=== PATIENT | male | born 1940 | race Hispanic/Latino ===

== ENCOUNTER 2017-03-28 11:00 | Inpatient (IN) | payer MEDICARE ==
[2017-03-28 19:58] VITALS: PULSE 88
[2017-03-28 23:04] VITALS: BMI 31.3
[2017-03-29 01:23] LABS: PARTIAL THROMBOPLASTIN TIME 50.9 SECONDS (23.3-32.5)
[2017-03-29] MEDS ORDERED: Phytonadione 10 mg/ml Inj (Adult) ONE (01:52)
[2017-03-29] MEDS ORDERED: Phytonadione 10 mg/ml Inj (Adult) SC ONE ×2 (01:53→08:58)
[2017-03-29 06:29] LABS: HEMATOCRIT 40.8 % (35.0-51.0); MEAN CELL VOLUME 92.3 fl (80.0-94.0); MEAN CORPUSCULAR HGB CONC 33.6 g/dL (33.0-37.0); RED CELL DISTRIBUTION WIDTH 16.2 % (11.5-14.5); WHITE BLOOD COUNT 9.7 K/uL (4.8-10.8)
[2017-03-29 06:44] LABS: ALB/GLOB RATIO 1.2 (1.0-2.1); BILIRUBIN,TOTAL 1.2 mg/dl (0.2-1.3); CALCIUM 9.3 mg/dL (8.4-10.2); POTASSIUM 5.1 MMOL/L (3.6-5.0); TOTAL PROTEIN 6.6 G/DL (6.3-8.2)
[2017-03-29 06:47] LABS: PARTIAL THROMBOPLASTIN TIME 47.6 SECONDS (23.3-32.5)
[2017-03-29] MEDS ORDERED: Valproate 500 MG in Sodium Chloride 0.9% 100 ML IVPB ONE (06:56)
[2017-03-29 07:00] LABS: T4 7.69 ug/dl (5.5-11.0)
[2017-03-29 07:14] LABS: THYROID STIMULATING HORMONE 6.56 mIU/ML (0.46-4.68)
[2017-03-29] MEDS ORDERED: Digoxin 125 mcg (0.125 mg) Tab PO SCH (09:00)
--- NOTE | 2017-03-29 09:21 | RAD ---
HISTORY: Not available COMPARISON: No prior. FINDINGS: LUNGS: No definite infiltrate. PLEURA: Moderate bilateral pleural effusion. CARDIOVASCULAR: Normal heart size. Mild congestive change. OSSEOUS STRUCTURES: No significant abnormalities. VISUALIZED UPPER ABDOMEN: Normal. OTHER FINDINGS: None. IMPRESSION: Bilateral moderate pleural effusion. Mild congestive change.
--- NOTE | 2017-03-29 09:35 | CT ---
PROCEDURE: CT HEAD WITHOUT CONTRAST. HISTORY: ICH? abn blood work up and change in mental status COMPARISON: Comparison CT scan brain 11/29/2016. TECHNIQUE: Axial computed tomography images were obtained through the head/brain without intravenous. Study is limited by motion artifact. Contrast. Radiation dose: Total exam DLP = 1060.54 MGy-cm. This CT exam was performed using one or more of the following dose reduction techniques: Automated exposure control, adjustment of the mA and/or kV according to patient size, and/or use of iterative reconstruction technique. FINDINGS: HEMORRHAGE: No acute parenchymal, subarachnoid nor extra-axial hemorrhage. BRAIN: Mild to moderate chronic periventricular white matter ischemic changes. Chronic infarct in the right frontal operculum region extending superiorly into the centrum semiovale. In addition, there may also be a few scattered chronic bilateral basal nuclei lacunar type infarcts Moderate generalized volume loss. VENTRICLES: Ventricles are dilated due to atrophy however no evidence of obstructive hydrocephalus. CALVARIUM: Calvarium appears grossly intact PARANASAL SINUSES: Unremarkable as visualized. No significant inflammatory changes. MASTOID AIR CELLS: Unremarkable as visualized. No inflammatory changes. OTHER FINDINGS: None. IMPRESSION: Limited motion degraded study. No acute intracranial hemorrhage. Mild to moderate chronic white matter ischemic changes. Chronic right frontal lobe infarct as above. In addition, there may also be a few scattered chronic bilateral basal nuclei lacunar type infarcts
--- NOTE | 2017-03-29 10:12 | CT ---
CT head without IV contrast History: Bilateral leg swelling, shortness of breath, confusion Technique: Axial computed tomography images were obtained through the head/brain without intravenous contrast. This CT exam was performed using 1 or more of the falling dose reduction techniques: Automated exposure control, adjustment of the MAA and/or kV according to patient size, and/or use of iterative reconstruction technique. Radiation dose: Total exam DLP = 1585.45 MGy-cm. Comparison: None available. Findings: Prominent hypodense region within the right frontal lobe likely related to remote ischemia. Acute or subacute component cannot be excluded. Please note that MRI with diffusion imaging is more sensitive in the detection of acute ischemic event. Additional scattered periventricular and subcortical white matter hypodensities, which are nonspecific, but often seen with chronic microvascular ischemic disease. No hydrocephalus. Diffuse atrophy with prominence of the ventricles and sulci noted. No intracranial masses or hemorrhages are identified. No mass effect or midline shift. Visualized paranasal sinuses, mastoid air cells, and both orbits appear unremarkable. Impression: Prominent hypodense region within the right frontal lobe likely related to remote ischemia. Acute or subacute component cannot be excluded. Please note that MRI with diffusion imaging is more sensitive in the detection of acute ischemic event. Additional scattered white matter hypodensities, which are nonspecific, but often seen with chronic microvascular ischemic disease.
--- NOTE | 2017-03-29 10:38 | CP.PCM.CON ---
History of Present Illness - History of Present Illness History of Present Illness: Full Note Dictated Altered Mental Status (? Keppra side effect, ? Hypercapnoea) Chr A Fib with CHF (LV , Diastolic, Chr) Hypoventilation syndr Coumadin Toxicity ( INR >8) ABGs Now Telemetry shows periods of bradycardia (mid 40s) Pt on Cardizem+ Dig + Metoprolol (Have witheld Dig) Vit K has been given (no active bleeding) Past Patient History - Infectious Disease Hx of Infectious Diseases: None - Past Medical History & Family History Past Medical History?: Yes - Past Social History Smoking Status: Never Smoked - CARDIAC Hx Cardiac Disorders: Yes - PULMONARY Hx Sleep Apnea: Yes - NEUROLOGICAL Hx Neurological Disorder: Yes HX Cerebrovascular Accident: Yes - HEENT Hx HEENT Problems: No - RENAL Hx Chronic Kidney Disease: No - ENDOCRINE/METABOLIC Hx Endocrine Disorders: No - HEMATOLOGICAL/ONCOLOGICAL Hx Human Immunodeficiency Virus (HIV): No - INTEGUMENTARY Hx Dermatological Problems: No - MUSCULOSKELETAL/RHEUMATOLOGICAL Hx Musculoskeletal Disorders: No Hx Falls: Yes - GASTROINTESTINAL Hx Gastrointestinal Disorders: No - GENITOURINARY/GYNECOLOGICAL Hx Genitourinary Disorders: Yes Other/Comment: BPH - PSYCHIATRIC Hx Psychophysiologic Disorder: No Hx Substance Use: No - SURGICAL HISTORY Hx Surgeries: No - ANESTHESIA Hx Anesthesia: No Hx Anesthesia Reactions: No Hx Malignant Hyperthermia: No Meds Allergies/Adverse Reactions: Allergies Allergy/AdvReac Type Severity Reaction Status Date / Time No Known Allergies Allergy Verified 02/27/16 09:59 - Medications Medications: Current Medications Diltiazem HCl (Cardizem Cd) 120 mg PO DAILY [facility] Enalapril Maleate (Vasotec) 10 mg PO DAILY [facility] Furosemide (Lasix) 40 mg IV DAILY [facility] Home Med (Dutasteride [Avodart]) 0.5 mg PO DAILY [facility] Metoprolol Succinate (Toprol Xl) 25 mg PO DAILY [facility] Results - Vital Signs Recent Vital Signs: Last Vital Signs Temp 98.2 F 03/29/17 08:19 Pulse 64 03/29/17 08:19 Resp 20 03/29/17 08:19 BP 113/70 03/29/17 08:19 Pulse Ox 93 L 03/29/17 08:19 - Labs Result Diagrams: 03/29/17 05:15 03/29/17 05:15 Labs: Laboratory Results - last 24 hr 03/29/17 03/29/1717 00:05 05:15 05:15 WBC 9.7 RBC 4.42 Hgb 13.7 Hct 40.8 MCV 92.3 MCH 31.0 MCHC 33.6 RDW 16.2 H Plt Count 147 PT 130.0 H* 130.0 H* INR > 8.00 H > 8.00 H APTT 50.9 H 47.6 H Sodium Potassium Chloride Carbon Dioxide Anion Gap BUN Creatinine Est GFR ( Amer) Est GFR (Non-Af Amer) Random Glucose Calcium Total Bilirubin AST ALT Alkaline Phosphatase Total Protein Albumin Globulin Albumin/Globulin Ratio Triglycerides Cholesterol LDL Cholesterol Direct HDL Cholesterol Thyroxine (T4) TSH 3rd Generation Digoxin 03/29/17 03/29/17 05:15 05:15 WBC RBC Hgb Hct MCV MCH MCHC RDW Plt Count PT INR APTT Sodium 139 Potassium 5.1 H Chloride 99 Carbon Dioxide 29 Anion Gap 16 BUN 44 H Creatinine 1.8 H Est GFR ( Amer) 44 Est GFR (Non-Af Amer) 37 Random Glucose 72 L Calcium 9.3 Total Bilirubin 1.2 AST 33 ALT 32 Alkaline Phosphatase 145 H D Total Protein 6.6 Albumin 3.5 Globulin 3.0 Albumin/Globulin Ratio 1.2 Triglycerides 48 Cholesterol 116 LDL Cholesterol Direct 41 HDL Cholesterol 53 Thyroxine (T4) 7.69 TSH 3rd Generation 6.56 H Digoxin 1.8
[2017-03-29 10:47] LABS: ABG ALLEN TEST YES; ABG MECHANICAL RATE 12; ARTERIAL BLOOD GAS HCO3 27.6 mmol/L (21-28); ARTERIAL BLOOD GAS MODE BiPAP; ARTERIAL BLOOD GAS O2 CAPACITY 18.7 mL/dL (16-24); ARTERIAL BLOOD GAS O2 CONTENT 18.4 ML/dL (15-23); ARTERIAL BLOOD GAS PH 7.42 (7.35-7.45); ARTERIAL BLOOD GAS PO2 141 mm/Hg (80-100); ARTERIAL BLOOD HGB O2 SAT 96.2 % (95.0-98.0); CARBOXYHEMOGLOBIN 0.9 % (0.5-1.5); HHB 1.8 % (0.0-5.0); METHEMOGLOBIN 1.1 % (0.0-3.0)
[2017-03-29] MEDS: diltiaZEM 120 mg/24 Hours CD Cap PO SCH (11:42)
[2017-03-29] MEDS: Metoprolol Succinate 25 mg XL Tab PO SCH (11:43)
--- NOTE | 2017-03-29 11:52 | CON ---
DATE: 03/29/2017 He is hospitalized under Dr. Escamilla's care. HISTORY OF PRESENT ILLNESS: This 76-year-old man has had 3 hospitalizations within the last 3 months. He was recently started on Keppra and the reports gradually worsening level of consciousness to the point that when she brought him to the hospital, he was hallucinating. She is convinced that this represents Keppra-related side effect. Recently the dose of Keppra was reduced without any improvement in his level of consciousness. The patient is being treated for congestive heart failure for a number of years with diuretics and medications to control his heart rate, which consists of a beta andrew as well as Cardizem and digoxin. The patient is also on Coumadin for a number of years. He has been seeing a parachute cushion installer at [facility] in [place]. He has never been a smoker and has no prior history of myocardial infarction. Recently with increasing weight and swelling of his legs, the diuretic dose was doubled to 40 mg of furosemide twice a day. The cannot say if he has lost any significant amount of weight. He uses a CPAP machine at home presumably for hypoventilation syndrome. PHYSICAL EXAMINATION: GENERAL: Shows an elderly man who is difficult to arouse at this point on a BiPAP machine with oxygen supplement. VITAL SIGNS: Telemetry shows atrial fibrillation with periods of bradycardia with a heart rate in mid 40s. His blood pressure was 128/74 mmHg. NECK: Jugular venous pressure could not be adequately assessed because of a short thick neck. EXTREMITIES: There was pedal edema, which is pitting in nature. HEART: The apex was not palpable. The first heart sound was normal. The second heart sound was also normal. There was no S3 gallop. LUNGS: Inspiratory effort was poor and very few rales were audible. ABDOMEN: Soft. Liver and spleen were not palpable. His electrocardiogram showed atrial fibrillation with a right bundle branch block and ST-T changes typical of right bundle branch block as well as probably digitalis effect. LABORATORY DATA: Showed a hemoglobin and hematocrit of 13.7 g and 40.8% respectively. His WBC count and platelet counts were normal. His INR at admission was greater than 8 and he was given doses of vitamin K. His Coumadin has been withheld. His arterial blood gases done now show a pCO2 of 44 and a pO2 of 141 mmHg. This was on a BiPAP machine with an FIO2 of 100%. His potassium level was 5.1 mEq per liter, BUN and creatinine were 44 and 1.8 mg percent. These values when compared to his earlier admissions show that in December his creatinine levels were in the range of 1.3-1.5 mg percent. His GFR which now is 37 mL per minute on earlier admission was as high as 53 mL per minute. His liver profile was normal. His TSH was 6.56 indicative of a hypothyroid state. Lipid profile was normal. IMPRESSION AND PLAN: At this time is altered mental status, possibly as a consequence of Keppra side effect. The possibility of hypercapnia was entertained until arterial blood gases were done, indicating a normal CO2 level , chronic congestive cardiac failure which is left ventricular diastolic and chronic. Review of his echocardiogram from December shows a preserved left ventricular systolic function with a mildly dilated left atrium. His digoxin has been withheld in an attempt to resolve bradycardic periods shown on his telemetry. He has already been seen by the neurologist who is in the process of addressing his altered mental status. Vitamin K has been given to resolve markedly elevated INR. Geovani V Lanie BENITEZ cc: 23 TT: 03/29/2017 11:45:21 Confirmation # [id number] Dictation # [id number] emily BLAIR
--- NOTE | 2017-03-29 14:19 | CP.PCM.HP ---
History of Present Illness - History of Present Illness History of Present Illness: CC: AMS. 76 y/o M, brought to ER [facility], [place] by EMS for evaluation of AMS, gradually increased, worsening on DOA with no relief. As per , she called EMS when noticed her having increased mental changes, associated to hallucination. worsening symptom: SOB, AFib with CHF, Hx of Sleep Apnea on BIPAP at home. Aggravated factor: Kepra related to episodes of altered consciousness. As per , Denied: Fever, chills, n/v/d, abdominal pain, CP, syncope, LOC, numbness, cough, urinary symptom, sick contact, recent travel. PMHx: A Fib with RVR on Coumadin, Old CVA without late effect, Chronic CHF, HTN , Sleep Apnea, BPH. EEG shows: Severe b/l cerebral dysfunction. CXR: B/L pleural effusion, mild congestive changes. EKG: A Fib with RBBB. . Present on Admission - Present on Admission Any Indicators Present on Admission: No Review of Systems - Constitutional Constitutional: Weakness - EENT Eyes: Requires Corrective Lenses Ears: Other (negative) Nose/Mouth/Throat: Other (negative) - Cardiovascular Cardiovascular: Irregular Heart Rhythm, Leg Edema - Respiratory Respiratory: Dyspnea - Gastrointestinal Gastrointestinal: Other (negative) - Genitourinary Genitourinary: Urinary Incontinence - Musculoskeletal Musculoskeletal: Other (negative) - Integumentary Integumentary: Other (negative) - Neurological Neurological: Behavioral Changes, Lack of Coordination, Weakness - Psychiatric Psychiatric: Hallucinations - Endocrine Endocrine: Other (negative) - Hematologic/Lymphatic Hematologic: Other (negative) Past Patient History - Infectious Disease Hx of Infectious Diseases: None - Past Medical History & Family History Past Medical History?: Yes Pertinent Family History: Unknown. - Past Social History Smoking Status: Never Smoked Alcohol: None Drugs: Denies Home Situation {Lives}: With Family - CARDIAC Hx Cardiac Disorders: Yes Hx Atrial Fibrillation: Yes Hx Congestive Heart Failure: Yes Hx Hypertension: Yes - PULMONARY Hx Respiratory Disorders: Yes Hx Sleep Apnea: Yes - NEUROLOGICAL Hx Neurological Disorder: Yes HX Cerebrovascular Accident: Yes - HEENT Hx HEENT Problems: No - RENAL Hx Chronic Kidney Disease: No - ENDOCRINE/METABOLIC Hx Endocrine Disorders: No - HEMATOLOGICAL/ONCOLOGICAL Hx Blood Disorders: No Hx Human Immunodeficiency Virus (HIV): No - INTEGUMENTARY Hx Dermatological Problems: No - MUSCULOSKELETAL/RHEUMATOLOGICAL Hx Musculoskeletal Disorders: Yes Hx Falls: Yes - GASTROINTESTINAL Hx Gastrointestinal Disorders: No - GENITOURINARY/GYNECOLOGICAL Hx Genitourinary Disorders: Yes Other/Comment: BPH - PSYCHIATRIC Hx Psychophysiologic Disorder: No Hx Substance Use: No - SURGICAL HISTORY Hx Surgeries: No - ANESTHESIA Hx Anesthesia: No Hx Anesthesia Reactions: No Hx Malignant Hyperthermia: No Meds Allergies/Adverse Reactions: Allergies Allergy/AdvReac Type Severity Reaction Status Date / Time No Known Allergies Allergy Verified 02/27/16 09:59 Physical Exam - Constitutional Appears: Chronically Ill - Head Exam Head Exam: NORMAL INSPECTION - Eye Exam Eye Exam: PERRL Pupil Exam: PERRL - ENT Exam ENT Exam: Normal Oropharynx - Neck Exam Neck exam: Positive for: Normal Inspection - Respiratory Exam Respiratory Exam: Decreased Breath Sounds (at bases), Rhonchi (scattered) Additional comments: Few crackles - Cardiovascular Exam Cardiovascular Exam: Irregular Rhythm - GI/Abdominal Exam GI & Abdominal Exam: Normal Bowel Sounds, Soft - Extremities Exam Additional comments: Legs edema. - Back Exam Additional comments: Redness sacral area. - Neurological Exam Additional comments: Lethargic, not arousable. - Psychiatric Exam Additional comments: Lethargic - Skin Skin Exam: Warm Results - Vital Signs Recent Vital Signs: Last Vital Signs Temp 97.6 F 03/29/17 12:47 Pulse 83 03/29/17 12:47 Resp 20 03/29/17 12:47 BP 145/72 03/29/17 12:47 Pulse Ox 94 L 03/29/17 12:47 reviewed J.PEmily - Labs Result Diagrams: 03/29/17 05:15 03/29/17 05:15 Labs: Laboratory Results - last 24 hr 03/29/17 03/29/17 03/29/17 00:05 05:15 05:15 WBC 9.7 RBC 4.42 Hgb 13.7 Hct 40.8 MCV 92.3 MCH 31.0 MCHC 33.6 RDW 16.2 H Plt Count 147 PT 130.0 H* 130.0 H* INR > 8.00 H > 8.00 H APTT 50.9 H 47.6 H pCO2 pO2 HCO3 ABG pH ABG Total CO2 ABG O2 Saturation ABG O2 Content ABG Base Excess ABG Hemoglobin ABG Carboxyhemoglobin POC ABG HHb (Measured) ABG Methemoglobin ABG O2 Capacity Broderick Test A-a O2 Difference Hgb O2 Saturation Vent Mode Mechanical Rate FiO2 Inspiratory BiPAP Expiratory BiPAP Sodium Potassium Chloride Carbon Dioxide Anion Gap BUN Creatinine Est GFR ( Amer) Est GFR (Non-Af Amer) Random Glucose Calcium Total Bilirubin AST ALT Alkaline Phosphatase Total Protein Albumin Globulin Albumin/Globulin Ratio Triglycerides Cholesterol LDL Cholesterol Direct HDL Cholesterol Thyroxine (T4) TSH 3rd Generation Digoxin 03/29/17 03/29/17 03/29/17 05:15 05:15 10:33 WBC RBC Hgb Hct MCV MCH MCHC RDW Plt Count PT INR APTT pCO2 44 pO2 141 H HCO3 27.6 ABG pH 7.42 ABG Total CO2 29.9 H ABG O2 Saturation 98.2 H ABG O2 Content 18.4 ABG Base Excess 3.4 H ABG Hemoglobin 13.4 ABG Carboxyhemoglobin 0.9 POC ABG HHb (Measured) 1.8 ABG Methemoglobin 1.1 ABG O2 Capacity 18.7 Broderick Test Yes A-a O2 Difference 517.0 Hgb O2 Saturation 96.2 Vent Mode Bipap Mechanical Rate 12 FiO2 100.0 Inspiratory BiPAP 10 Expiratory BiPAP 5 Sodium 139 Potassium 5.1 H Chloride 99 Carbon Dioxide 29 Anion Gap 16 BUN 44 H Creatinine 1.8 H Est GFR ( Amer) 44 Est GFR (Non-Af Amer) 37 Random Glucose 72 L Calcium 9.3 Total Bilirubin 1.2 AST 33 ALT 32 Alkaline Phosphatase 145 H Total Protein 6.6 Albumin 3.5 Globulin 3.0 Albumin/Globulin Ratio 1.2 Triglycerides 48 Cholesterol 116 LDL Cholesterol Direct 41 HDL Cholesterol 53 Thyroxine (T4) 7.69 TSH 3rd Generation 6.56 H Digoxin 1.8 reviewed J.P. - EKG Data EKG comments: reviewed J.P. - Impressions Impression: EGG = Reviewed J.P. - Imaging and Cardiology Chest x-ray Status: Report reviewed by me (JEmilyP.) CT scan - head Status: Report reviewed by me (JEmilyP.) Assessment & Plan (1) Altered mental status Status: Acute Priority: High (2) Acute on chronic diastolic CHF (congestive heart failure) Status: Acute Priority: High (3) A-fib Status: Chronic Priority: High (4) Generalized weakness Status: Acute Priority: High (5) Coumadin toxicity Status: Acute Priority: High (6) Sleep apnea Status: Chronic Priority: High (7) Seizure disorder Status: Chronic Priority: Medium (8) Old cerebrovascular accident (CVA) without late effect Status: Chronic - Assessment and Plan (Free Text) Plan: Telemetry with periods of bradycardia, Digoxin on hold, continue Metoprolol, Kepra DC, initial ABG mild Hypercapnia with decreased po2, DC BIPAP, trial of O2 NC, repeat ABG's in the evening, closed f/u. Cardiology consult appreciated - Date & Time Date: 03/29/17 Time: 10:40
[2017-03-29 15:40] LABS: ABG ALLEN TEST YES; ARTERIAL BLOOD GAS HCO3 27.2 mmol/L (21-28); ARTERIAL BLOOD GAS O2 CAPACITY 19.7 mL/dL (16-24); ARTERIAL BLOOD GAS O2 CONTENT 18.9 ML/dL (15-23); ARTERIAL BLOOD GAS PH 7.33 (7.35-7.45); ARTERIAL BLOOD GAS PO2 81 mm/Hg (80-100); ARTERIAL BLOOD HGB O2 SAT 93.8 % (95.0-98.0); CARBOXYHEMOGLOBIN 1.3 % (0.5-1.5); HHB 3.9 % (0.0-5.0)
--- NOTE | 2017-03-29 20:28 | EEG ---
DATE: 03/29/2017 CONDITION OF RECORDING: Drowsy. DIAGNOSIS: Altered mental status. MEDICATIONS: Reviewed via nurse's reconciliation sheet. INTERPRETATION: This is a 16-channel international recording. The background was composed of 5-6 cy cles per second. There was limited amount of beta activity 16-20 cycles per second seen in this trac ing. There was an increased amount of theta activity 5-7 cycles per second seen in this tracing. Dr cecelia was characterized by mixed beta and theta activities. Sleep was characterized by vertex tra nsient waves, sleep spindles and bilateral slowing. Photic stimulation showed no change in the elier ng. No paroxysmal activity noted during this recording. CONCLUSION: Abnormal electroencephalogram due to presence of diffuse slowing throughout the EEG cons istent with severe bilateral cerebral dysfunction. No evidence of any epileptiform activity. Rad Anderson MD cc: [id number] TT: 03/29/2017 20:27:19 Confirmation # [id number] Dictation # [id number] mn
--- NOTE | 2017-03-29 23:01 | CARD ---
APPROVED REPORT EKG Measurement Heart [id number] <Conclusion> Atrial fibrillation Left axis deviation Right bundle branch block T wave abnormality, consider inferolateral ischemia Abnormal ECG
--- NOTE | 2017-03-29 23:03 | CARD ---
APPROVED REPORT EKG Measurement Heart [id number] <Conclusion> Atrial fibrillation Left axis deviation Right bundle branch block T wave abnormality, consider inferolateral ischemia Abnormal ECG
[2017-03-30] MEDS: diltiaZEM 120 mg/24 Hours CD Cap PO SCH (13:30)
[2017-03-30] MEDS: Metoprolol Succinate 25 mg XL Tab PO SCH (13:31)
--- NOTE | 2017-03-30 15:05 | CP.PCM.PN ---
Subjective - Date & Time of Evaluation Date of Evaluation: 03/30/17 Time of Evaluation: 13:20 - Subjective Subjective: F/U AMS/ A Fib. Pt awake, smiling, no A/D, eating with the 's help. Objective - Vital Signs/Intake and Output Vital Signs (last 24 hours): Temp Pulse Resp BP Pulse Ox 97.5 F L 72 18 149/95 H 93 L 03/30/17 12:44 03/30/17 13:31 03/30/17 12:44 03/30/17 13:31 03/30/17 12:44 Intake and Output: 03/30/17 03/30/17 06:59 18:59 Intake Total 600 Balance 600 - Medications Medications: Current Medications Diltiazem HCl (Cardizem Cd) 120 mg PO DAILY [facility] Last Admin: 03/30/17 13:30 Dose: 120 mg Enalapril Maleate (Vasotec) 10 mg PO DAILY [facility] Last Admin: 03/30/17 13:31 Dose: 10 mg Furosemide (Lasix) 40 mg IV DAILY [facility] Last Admin: 03/30/17 09:06 Dose: 40 mg Home Med (Dutasteride [Avodart]) 0.5 mg PO DAILY [facility] Metoprolol Succinate (Toprol Xl) 25 mg PO DAILY [facility] Last Admin: 03/30/17 13:31 Dose: 25 mg - Labs Labs: 03/29/17 05:15 03/29/17 05:15 PT 30.4 SECONDS (9.6-11.2) H* D 03/30/17 07:00 INR 2.92 (0.92-1.08) H 03/30/17 07:00 APTT 47.6 SECONDS (23.3-32.5) H 03/29/17 05:15 - Constitutional Appears: No Acute Distress, Chronically Ill - Head Exam Head Exam: NORMAL INSPECTION - Eye Exam Eye Exam: PERRL - ENT Exam ENT Exam: Normal Oropharynx - Neck Exam Neck Exam: Normal Inspection - Respiratory Exam Respiratory Exam: Decreased Breath Sounds (at bases) - Cardiovascular Exam Cardiovascular Exam: Irregular Rhythm - GI/Abdominal Exam GI & Abdominal Exam: Soft, Normal Bowel Sounds - Extremities Exam Additional comments: Legs edema decreased. - Back Exam Additional comments: Sacral area with redness. - Neurological Exam Neurological Exam: Awake Additional comments: Answering questions, weakness lower extremities. - Psychiatric Exam Psychiatric exam: Normal Mood - Skin Skin Exam: Warm Assessment and Plan (1) Altered mental status Status: Acute (2) Acute on chronic diastolic CHF (congestive heart failure) Status: Acute (3) A-fib Status: Chronic (4) Generalized weakness Status: Acute (5) Coumadin toxicity Status: Acute (6) Sleep apnea Status: Chronic (7) Seizure disorder Status: Chronic (8) Old cerebrovascular accident (CVA) without late effect Status: Chronic - Assessment and Plan (Free Text) Plan: Pt off kepra, continue current Tx and PT.
[2017-03-31 09:05] LABS: HEMATOCRIT 38.5 % (35.0-51.0); MEAN CELL VOLUME 92.4 fl (80.0-94.0); MEAN CORPUSCULAR HGB CONC 33.5 g/dL (33.0-37.0); RED CELL DISTRIBUTION WIDTH 16.2 % (11.5-14.5); WHITE BLOOD COUNT 5.2 K/uL (4.8-10.8)
[2017-03-31 09:08] LABS: CALCIUM 8.9 mg/dL (8.4-10.2); POTASSIUM 4.2 MMOL/L (3.6-5.0)
[2017-03-31] MEDS: diltiaZEM 120 mg/24 Hours CD Cap PO SCH (09:31)
[2017-03-31] MEDS: Patient's Own Med (Dutasteride [Avodart] 0.5 MG) PO SCH (09:32)
[2017-03-31] MEDS: Metoprolol Succinate 25 mg XL Tab PO SCH (09:34)
--- NOTE | 2017-03-31 16:07 | CP.PCM.PN ---
Subjective - Date & Time of Evaluation Date of Evaluation: 03/31/17 Time of Evaluation: 12:40 - Subjective Subjective: F/U AMS No hallucinations, breathing well, eating well with the 's help. Objective - Vital Signs/Intake and Output Vital Signs (last 24 hours): Temp Pulse Resp BP Pulse Ox 97.3 F L 76 20 164/84 H 97 03/31/17 15:53 03/31/17 15:53 03/31/17 15:53 03/31/17 15:53 03/31/17 15:53 - Medications Medications: Current Medications Diltiazem HCl (Cardizem Cd) 120 mg PO DAILY [facility] Last Admin: 03/31/17 09:31 Dose: 120 mg Enalapril Maleate (Vasotec) 10 mg PO DAILY [facility] Last Admin: 03/31/17 09:35 Dose: 10 mg Furosemide (Lasix) 40 mg IV DAILY [facility] Last Admin: 03/31/17 09:32 Dose: 40 mg Home Med (Dutasteride [Avodart]) 0.5 mg PO DAILY [facility] Last Admin: 03/31/17 09:32 Dose: 0.5 mg Metoprolol Succinate (Toprol Xl) 25 mg PO DAILY [facility] Last Admin: 03/31/17 09:34 Dose: 25 mg - Labs Labs: 03/31/17 07:30 03/31/17 07:30 PT 15.4 SECONDS (9.6-11.2) H D 03/31/17 07:30 INR 1.48 (0.92-1.08) H D 03/31/17 07:30 APTT 47.6 SECONDS (23.3-32.5) H 03/29/17 05:15 Assessment and Plan (1) Altered mental status Status: Acute (2) Acute on chronic diastolic CHF (congestive heart failure) Status: Acute (3) A-fib Status: Chronic (4) Generalized weakness Status: Acute (5) Coumadin toxicity Status: Acute (6) Sleep apnea Status: Chronic (7) Seizure disorder Status: Chronic (8) Old cerebrovascular accident (CVA) without late effect Status: Chronic - Assessment and Plan (Free Text) Plan: Off Kepra, continue rest of Tx.
[2017-04-01] MEDS ORDERED: Valproate 500 MG in Sodium Chloride 0.9% 100 ML IVPB ONE (08:28)
[2017-04-01] MEDS: Metoprolol Succinate 25 mg XL Tab PO SCH (09:11)
[2017-04-01] MEDS: diltiaZEM 120 mg/24 Hours CD Cap PO SCH (09:13)
[2017-04-01] MEDS: Patient's Own Med (Dutasteride [Avodart] 0.5 MG) PO SCH ×2 (09:13→09:14)
--- NOTE | 2017-04-01 15:30 | CP.PCM.PN ---
Subjective - Date & Time of Evaluation Date of Evaluation: 04/01/17 Time of Evaluation: 11:10 - Subjective Subjective: F/U AMS. No c/o, able to talk with shorts sentences, Pt's at bedside, states maybe Pt was having hallucinations today. Objective - Vital Signs/Intake and Output Vital Signs (last 24 hours): Temp Pulse Resp BP Pulse Ox 97.5 F L 75 20 125/65 99 04/01/17 13:00 04/01/17 13:02 04/01/17 13:00 04/01/17 13:00 04/01/17 13:02 - Medications Medications: Current Medications Diltiazem HCl (Cardizem Cd) 120 mg PO DAILY [facility] Last Admin: 04/01/17 09:13 Dose: 120 mg Enalapril Maleate (Vasotec) 10 mg PO DAILY [facility] Last Admin: 04/01/17 09:11 Dose: 10 mg Furosemide (Lasix) 40 mg IV DAILY [facility] Last Admin: 04/01/17 09:12 Dose: 40 mg Home Med (Dutasteride [Avodart]) 0.5 mg PO DAILY [facility] Last Admin: 04/01/17 09:14 Dose: 0.5 mg Valproate Sodium 500 mg/ (Sodium Chloride) 105 mls @ 100 mls/hr IVPB BID [facility] Metoprolol Succinate (Toprol Xl) 25 mg PO DAILY [facility] Last Admin: 04/01/17 09:11 Dose: 25 mg Warfarin Sodium (Coumadin) 2 mg PO QD5 [facility] PRN Reason: Protocol Stop: 04/01/17 17:01 - Labs Labs: 03/31/17 07:30 03/31/17 07:30 PT 14.2 SECONDS (9.6-11.2) H 04/01/17 05:55 INR 1.37 (0.92-1.08) H 04/01/17 05:55 APTT 47.6 SECONDS (23.3-32.5) H 03/29/17 05:15 - Constitutional Appears: No Acute Distress, Chronically Ill - Head Exam Head Exam: NORMAL INSPECTION - Eye Exam Eye Exam: PERRL - ENT Exam ENT Exam: Normal Oropharynx - Neck Exam Neck Exam: Normal Inspection - Respiratory Exam Respiratory Exam: Decreased Breath Sounds (at bases) - Cardiovascular Exam Cardiovascular Exam: Irregular Rhythm - GI/Abdominal Exam GI & Abdominal Exam: Soft, Normal Bowel Sounds - Extremities Exam Additional comments: Legs edema, decreased - Back Exam Additional comments: Sacral area redness. - Neurological Exam Neurological Exam: Awake Additional comments: Answer questions, generalized weakness more prominent L/E. - Psychiatric Exam Psychiatric exam: Normal Mood - Skin Skin Exam: Warm Assessment and Plan (1) Altered mental status Status: Acute (2) Acute on chronic diastolic CHF (congestive heart failure) Status: Acute (3) A-fib Status: Chronic (4) Generalized weakness Status: Acute (5) Coumadin toxicity Status: Acute (6) Sleep apnea Status: Chronic (7) Seizure disorder Status: Chronic (8) Old cerebrovascular accident (CVA) without late effect Status: Chronic - Assessment and Plan (Free Text) Plan: Begins Coumadin, discussed with pharmacy to attempt insurance approve for xarelto or Eliquis
[2017-04-01] MEDS: Valproate 500 MG in Sodium Chloride 0.9% 100 ML IVPB SCH (16:07)
[2017-04-02] MEDS: diltiaZEM 120 mg/24 Hours CD Cap PO SCH (09:30)
[2017-04-02] MEDS: Patient's Own Med (Dutasteride [Avodart] 0.5 MG) PO SCH (09:30)
[2017-04-02] MEDS: Metoprolol Succinate 25 mg XL Tab PO SCH (09:31)
[2017-04-02] MEDS: Valproate 500 MG in Sodium Chloride 0.9% 100 ML IVPB SCH ×2 (09:32→16:08)
[2017-04-02] MEDS ORDERED: Sodium Chloride 3% for Inhalation 4 ML VIAL.NEB IH PRN (11:01)
--- NOTE | 2017-04-02 11:53 | RAD ---
HISTORY: chest congestion COMPARISON: Comparison chest dated 03/28/2017 FINDINGS: LUNGS: Mild pulmonary venous congestion and bilateral effusions slightly improved. PLEURA: No significant pleural effusion identified, no pneumothorax apparent. CARDIOVASCULAR: Cardiomegaly. OSSEOUS STRUCTURES: No significant abnormalities. VISUALIZED UPPER ABDOMEN: Normal. OTHER FINDINGS: None. IMPRESSION: Mild pulmonary venous congestion and bilateral effusions appear slightly improved. Cardiomegaly.
--- NOTE | 2017-04-02 15:22 | CP.PCM.PN ---
Subjective - Date & Time of Evaluation Date of Evaluation: 04/02/17 Time of Evaluation: 10:40 - Subjective Subjective: F/U AMS. Pt awake, able to talk with short sentences, as per , Pt still with hallucinations at time looking people in the room. Objective - Vital Signs/Intake and Output Vital Signs (last 24 hours): Temp Pulse Resp BP Pulse Ox 97.4 F L 76 18 161/84 H 98 04/02/17 13:09 04/02/17 13:09 04/02/17 13:09 04/02/17 13:09 04/02/17 13:09 - Medications Medications: Current Medications Diltiazem HCl (Cardizem Cd) 120 mg PO DAILY [facility] Last Admin: 04/02/17 09:30 Dose: 120 mg Enalapril Maleate (Vasotec) 10 mg PO DAILY [facility] Last Admin: 04/02/17 09:32 Dose: 10 mg Furosemide (Lasix) 40 mg IV DAILY [facility] Last Admin: 04/02/17 09:30 Dose: 40 mg Home Med (Dutasteride [Avodart]) 0.5 mg PO DAILY [facility] Last Admin: 04/02/17 09:30 Dose: 0.5 mg Valproate Sodium 500 mg/ (Sodium Chloride) 105 mls @ 100 mls/hr IVPB BID [facility] Last Admin: 04/02/17 09:32 Dose: 100 mls/hr Ipratropium [place] (Atrovent) 0.5 mg IH RQ6 [facility] Levalbuterol HCl (Xopenex) 1.25 mg INH RQ8 [facility] Metoprolol Succinate (Toprol Xl) 25 mg PO DAILY [facility] Last Admin: 04/02/17 09:31 Dose: 25 mg Warfarin Sodium (Coumadin) 3 mg PO QD5 [facility] PRN Reason: Protocol Stop: 04/02/17 17:01 - Labs Labs: 03/31/17 07:30 03/31/17 07:30 PT 12.8 SECONDS (9.6-11.2) H 04/02/17 08:17 INR 1.23 (0.92-1.08) H 04/02/17 08:17 APTT 47.6 SECONDS (23.3-32.5) H 03/29/17 05:15 - Constitutional Appears: No Acute Distress, Chronically Ill - Head Exam Head Exam: NORMAL INSPECTION - Eye Exam Eye Exam: PERRL - ENT Exam ENT Exam: Normal Oropharynx - Neck Exam Neck Exam: Normal Inspection - Respiratory Exam Respiratory Exam: Decreased Breath Sounds (at bases), Rhonchi (b/l) - Cardiovascular Exam Cardiovascular Exam: Irregular Rhythm - GI/Abdominal Exam GI & Abdominal Exam: Soft, Normal Bowel Sounds - Extremities Exam Additional comments: Legs edema decreased - Back Exam Additional comments: Sacral area redness. - Neurological Exam Neurological Exam: Awake Additional comments: Generalized weakness, prominent L/E. - Psychiatric Exam Psychiatric exam: Normal Mood - Skin Skin Exam: Warm Assessment and Plan (1) Altered mental status Status: Acute (2) Acute on chronic diastolic CHF (congestive heart failure) Status: Acute (3) A-fib Status: Chronic (4) Generalized weakness Status: Acute (5) Coumadin toxicity Status: Acute (6) Sleep apnea Status: Chronic (7) Seizure disorder Status: Chronic (8) Old cerebrovascular accident (CVA) without late effect Status: Chronic - Assessment and Plan (Free Text) Plan: to have CXR today, Xopenex Atrovent, Sputum C-S.
[2017-04-02] MEDS: Ipratropium 0.02% Inhal Soln (0.5 mg/2.5 ml) UD IH SCH ×2 (16:00→20:00)
[2017-04-02] MEDS: Levalbuterol 1.25 MG/3 ML Inhal Soln UD INH SCH (16:00)
[2017-04-03] MEDS: Levalbuterol 1.25 MG/3 ML Inhal Soln UD INH SCH ×3 (00:54→15:21)
[2017-04-03] MEDS: Ipratropium 0.02% Inhal Soln (0.5 mg/2.5 ml) UD IH SCH ×3 (00:59→13:57)
--- NOTE | 2017-04-03 07:39 | PN ---
DATE: 04/03/2017 NEUROLOGICAL PROBLEM: Encephalopathy related to seizures and metabolic derangement. PHYSICAL EXAMINATION: VITAL SIGNS: Blood pressure 227/100, pulse rate 82 regular, respiratory rate 16, temperature 98.6. NEUROLOGIC: The patient is examined in the presence of his . He is lethargic. He is arousable on tactile stimuli. He moves all 4 extremities. Some good visual contact then goes back to his slee p. His is comfortable with his current medication. BLOOD WORKUP: WBC 5.2, hemoglobin 12.9, hematocrit 38.5, platelet 134. PT 12.8, INR 1.23 (the patie nt is on warfarin). Sodium 138, potassium 4.2, chloride 99, bicarbonate 32, BUN 46, creatinine 1.7, GFR 47. Valproic acid level less than 10. Chest x-ray: Improving pleural effusion. The patient's Depakote level to be checked today and medication should be adjusted. The patient's condition has been well discussed with his . Delfin Ornelas MD cc: [id number] TT: 04/03/2017 07:39:14 Confirmation # [id number] Dictation # [id number] giovana
[2017-04-03] MEDS: Patient's Own Med (Dutasteride [Avodart] 0.5 MG) PO SCH (08:59)
[2017-04-03] MEDS: Metoprolol Succinate 25 mg XL Tab PO SCH (08:59)
[2017-04-03] MEDS: diltiaZEM 120 mg/24 Hours CD Cap PO SCH (09:00)
[2017-04-03] MEDS: Valproate 500 MG in Sodium Chloride 0.9% 100 ML IVPB SCH (09:04)
--- NOTE | 2017-04-03 14:56 | CP.PCM.PN ---
Subjective - Date & Time of Evaluation Date of Evaluation: 04/03/17 Time of Evaluation: 11:40 - Subjective Subjective: F/U AMS Pt smiling, answering simple question,no A/D, no c/o. Objective - Vital Signs/Intake and Output Vital Signs (last 24 hours): Temp Pulse Resp BP Pulse Ox 97.5 F L 76 20 134/80 95 04/03/17 12:34 04/03/17 12:34 04/03/17 12:34 04/03/17 12:34 04/03/17 12:34 - Medications Medications: Current Medications Diltiazem HCl (Cardizem Cd) 120 mg PO DAILY [facility] Last Admin: 04/03/17 09:00 Dose: 120 mg Enalapril Maleate (Vasotec) 10 mg PO DAILY [facility] Last Admin: 04/03/17 09:00 Dose: 10 mg Furosemide (Lasix) 40 mg IV DAILY [facility] Last Admin: 04/03/17 08:59 Dose: 40 mg Home Med (Dutasteride [Avodart]) 0.5 mg PO DAILY [facility] Last Admin: 04/03/17 08:59 Dose: 0.5 mg Ipratropium [place] (Atrovent) 0.5 mg IH RQ6 [facility] Last Admin: 04/03/17 13:57 Dose: 0.5 mg Levalbuterol HCl (Xopenex) 1.25 mg INH RQ8 [facility] Last Admin: 04/03/17 08:16 Dose: 1.25 mg Metoprolol Succinate (Toprol Xl) 50 mg PO DAILY [facility] Valproate Sodium (Depakene Oral Soln) 500 mg PO BID [facility] Warfarin Sodium (Coumadin) 3 mg PO QD5 [facility] PRN Reason: Protocol Stop: 04/03/17 17:01 - Labs Labs: 03/31/17 07:30 03/31/17 07:30 PT 14.7 SECONDS (9.6-11.2) H 04/03/17 09:32 INR 1.41 (0.92-1.08) H 04/03/17 09:32 APTT 47.6 SECONDS (23.3-32.5) H 03/29/17 05:15 - Constitutional Appears: No Acute Distress, Chronically Ill - Head Exam Head Exam: NORMAL INSPECTION - Eye Exam Eye Exam: PERRL - ENT Exam ENT Exam: Normal Oropharynx - Neck Exam Neck Exam: Normal Inspection - Respiratory Exam Respiratory Exam: Decreased Breath Sounds (at bases) - Cardiovascular Exam Cardiovascular Exam: Irregular Rhythm - GI/Abdominal Exam GI & Abdominal Exam: Soft, Normal Bowel Sounds - Extremities Exam Additional comments: Legs edema - Back Exam Additional comments: Sacral area redness - Neurological Exam Neurological Exam: Awake Additional comments: Generalized weakness, prominent L/E - Psychiatric Exam Psychiatric exam: Normal Mood - Skin Skin Exam: Warm Assessment and Plan (1) Altered mental status Status: Acute (2) Acute on chronic diastolic CHF (congestive heart failure) Status: Acute (3) A-fib Status: Chronic (4) Generalized weakness Status: Acute (5) Coumadin toxicity Status: Acute (6) Sleep apnea Status: Chronic (7) Seizure disorder Status: Chronic (8) Old cerebrovascular accident (CVA) without late effect Status: Chronic - Assessment and Plan (Free Text) Plan: Pt improved and stable to be transferred to TCU to have PT.
[2017-04-03 15:44] VITALS: TEMP 97.4
[2017-04-03] MEDS ORDERED: Valproic Acid 250 mg/5 ml UD Cup PO SCH (17:00)
[2017-04-03] MEDS ORDERED: Ipratropium 0.02% Inhal Soln (0.5 mg/2.5 ml) UD IH SCH (21:00)
[2017-04-03] MEDS ORDERED: Levalbuterol 0.63 MG/3 ML Inhal Soln UD INH SCH (21:00)
[2017-04-03 21:04] VITALS: BP 165/78; PULSE 79; RESP 18; O2SAT 95
[2017-04-04] MEDS ORDERED: Metoprolol Succinate 50 mg XL Tab PO SCH (09:00)
[2017-04-04] MEDS ORDERED: diltiaZEM 180 mg/24 Hours CD Cap PO SCH (09:00)
== END 2017-04-03 20:55 | DRG 70 ==
LOC: H.EDERROR 11:00 → H.TEL 18:58
PROVIDERS: ADMIT Radiology Diagnostic Radiology; ATTEND Internal Medicine Pulmonary Disease
DX: G93.41 Metabolic encephalopathy (principal); I50.33 Acute on chronic diastolic (congestive) heart failure; I48.2 Chronic atrial fibrillation; R00.1 Bradycardia, unspecified; G40.909 Epilepsy, unspecified, not intractable, without status epilepticus; G47.30 Sleep apnea, unspecified; N40.0 Benign prostatic hyperplasia without lower urinary tract symptoms; Z86.73 Personal history of transient ischemic attack (TIA), and cerebral infarction without residual deficits; T88.7XXA Unspecified adverse effect of drug or medicament, initial encounter; T45.515A Adverse effect of anticoagulants, initial encounter; I11.0 Hypertensive heart disease with heart failure

== ENCOUNTER 2017-04-03 16:21 | Inpatient (IN) | payer MEDICARE ==
[2017-04-03 21:22] VITALS: BMI 29.6
[2017-04-04] MEDS: Levalbuterol 0.63 MG/3 ML Inhal Soln UD INH SCH ×3 (07:54→19:51)
[2017-04-04] MEDS: Ipratropium 0.02% Inhal Soln (0.5 mg/2.5 ml) UD IH SCH ×3 (07:54→19:51)
[2017-04-04] MEDS: METOPROLOL SUCCINATE 50 MG PO SCH (08:41)
[2017-04-04] MEDS: DIGOXIN 0.125 MG PO SCH (08:41)
[2017-04-04] MEDS: diltiaZEM 180 mg/24 Hours CD Cap PO SCH (08:41)
[2017-04-04] MEDS: Patient's Own Med (Dutasteride [Avodart] 0.5 MG) PO SCH (08:41)
[2017-04-04] MEDS: ENALAPRIL PO SCH (08:41)
[2017-04-04] MEDS: Valproic Acid 250 mg/5 ml UD Cup PO SCH ×2 (08:43→16:46)
[2017-04-04] MEDS ORDERED: Digoxin 125 mcg (0.125 mg) Tab PO SCH (09:00)
[2017-04-04] MEDS ORDERED: Metoprolol Succinate 50 mg XL Tab PO SCH (09:00)
--- NOTE | 2017-04-04 19:00 | CP.PCM.HP ---
History of Present Illness - History of Present Illness History of Present Illness: 76 y/o M, admitted to TCU on 04/03/17 for PT,OT. Recent admission to [facility] on 03/28/17 for Hallucinations/AMS 2nd to Kepra Toxicity, there after Pt improved and was transfer to TCU to receive PT, OT 2nd to Left weakness, more prominent lower extremities. Hx of Generalized weakness, A Fib on Coumadin, HTN, Old CVA, Chronic CHF, Sleep Apnea. Pt is awake, at bedside, smiling, no c/o, no A/D, no SOB, at times cough with scanty amount of phlegms, BP: 193/96 HR: 76. Present on Admission - Present on Admission Any Indicators Present on Admission: No Review of Systems - Constitutional Constitutional: Weakness - EENT Eyes: Requires Corrective Lenses Ears: Other (negative) Nose/Mouth/Throat: Other (negative) - Cardiovascular Cardiovascular: Irregular Heart Rhythm, Leg Edema - Respiratory Respiratory: Cough - Gastrointestinal Gastrointestinal: Other (negative) - Genitourinary Genitourinary: Urinary Incontinence - Musculoskeletal Musculoskeletal: Other (negative) - Integumentary Integumentary: Erythema (Sacral area), Sores (L knee) - Neurological Neurological: Weakness - Psychiatric Psychiatric: Other (negative) - Endocrine Endocrine: Other (negative) - Hematologic/Lymphatic Hematologic: Other (negative) Past Patient History - Infectious Disease Hx of Infectious Diseases: None - Past Medical History & Family History Past Medical History?: Yes Pertinent Family History: Unknown - Past Social History Smoking Status: Never Smoked Alcohol: None Drugs: Denies Home Situation {Lives}: With Family - CARDIAC Hx Cardiac Disorders: Yes Hx Atrial Fibrillation: Yes Hx Hypertension: Yes - PULMONARY Hx Respiratory Disorders: Yes Hx Sleep Apnea: Yes - NEUROLOGICAL Hx Neurological Disorder: Yes HX Cerebrovascular Accident: Yes - HEENT Hx HEENT Problems: No - RENAL Hx Chronic Kidney Disease: No - ENDOCRINE/METABOLIC Hx Endocrine Disorders: No - HEMATOLOGICAL/ONCOLOGICAL Hx Blood Disorders: No Hx Human Immunodeficiency Virus (HIV): No - INTEGUMENTARY Hx Dermatological Problems: No - MUSCULOSKELETAL/RHEUMATOLOGICAL Hx Musculoskeletal Disorders: No Hx Falls: No - GASTROINTESTINAL Hx Gastrointestinal Disorders: No - GENITOURINARY/GYNECOLOGICAL Hx Genitourinary Disorders: Yes Hx Incontinence: Yes Other/Comment: BPH - PSYCHIATRIC Hx Psychophysiologic Disorder: No Hx Substance Use: No - SURGICAL HISTORY Hx Surgeries: No - ANESTHESIA Hx Anesthesia: No Hx Anesthesia Reactions: No Hx Malignant Hyperthermia: No Meds Allergies/Adverse Reactions: Allergies Allergy/AdvReac Type Severity Reaction Status Date / Time No Known Allergies Allergy Verified 02/27/16 09:59 Physical Exam - Constitutional Appears: No Acute Distress, Chronically Ill - Head Exam Head Exam: NORMAL INSPECTION - Eye Exam Eye Exam: PERRL - ENT Exam ENT Exam: Normal Oropharynx - Neck Exam Neck exam: Positive for: Normal Inspection - Respiratory Exam Respiratory Exam: Decreased Breath Sounds (at bases) - Cardiovascular Exam Cardiovascular Exam: Irregular Rhythm - GI/Abdominal Exam GI & Abdominal Exam: Normal Bowel Sounds, Soft - Extremities Exam Additional comments: Legs edema - Back Exam Additional comments: Redness sacral area, prominent L/E - Neurological Exam Neurological exam: Alert (Follows commands, generalized weakness) - Psychiatric Exam Psychiatric exam: Normal Mood - Skin Skin Exam: Warm Results - Vital Signs Recent Vital Signs: Last Vital Signs Temp 97.3 F L 04/04/17 16:49 Pulse 76 04/04/17 16:49 Resp 20 04/04/17 16:49 BP 193/96 H 04/04/17 16:49 Pulse Ox 97 04/04/17 16:49 reviewed J.P. - Labs Result Diagrams: 04/05/17 16:45 Labs: Laboratory Results - last 24 hr 04/04/17 04/04/17 06:53 14:00 PT 15.7 H 18.3 H INR 1.51 H 1.76 H reviewed J.P. Assessment & Plan (1) Leg weakness Status: Acute Priority: High (2) Acute on chronic diastolic CHF (congestive heart failure) Status: Acute Priority: High (3) A-fib Status: Chronic Priority: High (4) HTN (hypertension) Status: Chronic Priority: High (5) Old cerebrovascular accident (CVA) without late effect Status: Chronic (6) Sleep apnea Status: Chronic Priority: High (7) Seizure Status: Chronic - Assessment and Plan (Free Text) Plan: Continue Dekapote, Cardizen, Lasix, rest of Tx, PT,OT, Cardiac consult. - Date & Time Date: 04/04/17 Time: 12:30
[2017-04-05] MEDS: Ipratropium 0.02% Inhal Soln (0.5 mg/2.5 ml) UD IH SCH ×2 (07:34→19:33)
[2017-04-05] MEDS: Levalbuterol 0.63 MG/3 ML Inhal Soln UD INH SCH ×2 (07:34→19:34)
--- NOTE | 2017-04-05 08:55 | CP.PCM.CON ---
History of Present Illness - History of Present Illness History of Present Illness: Full Note Dictated. Keppra toxicity CHF (LV, diastolic, chr ) A Fib (chr) Seizure disorder Pt back on Warfarin Hemodynamically stable Past Patient History - Infectious Disease Hx of Infectious Diseases: None - Past Medical History & Family History Past Medical History?: Yes - Past Social History Smoking Status: Never Smoked - CARDIAC Hx Cardiac Disorders: Yes Hx Atrial Fibrillation: Yes Hx Hypertension: Yes - PULMONARY Hx Respiratory Disorders: Yes Hx Sleep Apnea: Yes - NEUROLOGICAL Hx Neurological Disorder: Yes HX Cerebrovascular Accident: Yes - HEENT Hx HEENT Problems: No - RENAL Hx Chronic Kidney Disease: No - ENDOCRINE/METABOLIC Hx Endocrine Disorders: No - HEMATOLOGICAL/ONCOLOGICAL Hx Blood Disorders: No Hx Human Immunodeficiency Virus (HIV): No - INTEGUMENTARY Hx Dermatological Problems: No - MUSCULOSKELETAL/RHEUMATOLOGICAL Hx Musculoskeletal Disorders: No Hx Falls: No - GASTROINTESTINAL Hx Gastrointestinal Disorders: No - GENITOURINARY/GYNECOLOGICAL Hx Genitourinary Disorders: Yes Other/Comment: BPH - PSYCHIATRIC Hx Psychophysiologic Disorder: No Hx Substance Use: No - SURGICAL HISTORY Hx Surgeries: No - ANESTHESIA Hx Anesthesia: No Hx Anesthesia Reactions: No Hx Malignant Hyperthermia: No Meds Allergies/Adverse Reactions: Allergies Allergy/AdvReac Type Severity Reaction Status Date / Time No Known Allergies Allergy Verified 02/27/16 09:59 - Medications Medications: Current Medications Diltiazem HCl (Cardizem Cd) 180 mg PO DAILY [facility] Last Admin: 04/04/17 08:41 Dose: 180 mg Furosemide (Lasix) 40 mg PO DAILY [facility] Last Admin: 04/04/17 08:45 Dose: 40 mg Home Med (Dutasteride [Avodart]) 0.5 mg PO DAILY [facility] Last Admin: 04/04/17 08:41 Dose: 0.5 mg Home Med (Digoxin [Lanoxin]) 0.125 mg PO DAILY [facility] Last Admin: 04/04/17 08:41 Dose: 0.125 mg Home Med (Patient's Own Medication) 1 unit PO DAILY [facility] Last Admin: 04/04/17 08:41 Dose: 1 unit Home Med (Patient's Own Medication) 1 unit PO DAILY [facility] Last Admin: 04/04/17 08:41 Dose: 1 unit Ipratropium [place] (Atrovent) 0.5 mg IH RBID [facility] Levalbuterol HCl (Xopenex) 0.63 mg INH RBID [facility] Valproate Sodium (Depakene Oral Soln) 500 mg PO BID [facility] Last Admin: 04/04/17 16:46 Dose: 500 mg Warfarin Sodium (Coumadin) 2.5 mg PO QD5 [facility] PRN Reason: Protocol Stop: 04/05/17 17:01 Results - Vital Signs Recent Vital Signs: Last Vital Signs Temp 97.7 F 04/05/17 08:48 Pulse 96 H 04/05/17 08:48 Resp 20 04/05/17 08:48 BP 184/105 H 04/05/17 08:48 Pulse Ox 100 04/05/17 08:48 - Labs Labs: Laboratory Results - last 24 hr 04/04/17 14:00 PT 18.3 H INR 1.76 H
[2017-04-05] MEDS: diltiaZEM 180 mg/24 Hours CD Cap PO SCH (09:06)
[2017-04-05] MEDS: Valproic Acid 250 mg/5 ml UD Cup PO SCH ×2 (09:07→17:46)
[2017-04-05] MEDS: METOPROLOL SUCCINATE 50 MG PO SCH (09:07)
[2017-04-05] MEDS: Patient's Own Med (Dutasteride [Avodart] 0.5 MG) PO SCH (09:07)
[2017-04-05] MEDS: ENALAPRIL PO SCH (09:07)
[2017-04-05] MEDS: DIGOXIN 0.125 MG PO SCH (09:08)
--- NOTE | 2017-04-05 10:20 | CON ---
DATE: 04/05/2017 He is hospitalized under Dr. Escamilla's care in room 713 of transitional care unit. HISTORY OF PRESENT ILLNESS: This 76-year-old man was transferred to the transitional care unit from the acute care section of this facility after having been treated for Keppra toxicity. The patient h as a long history of congestive cardiac failure precipitated by atrial fibrillation in presence of le ft ventricular diastolic dysfunction. He has never suffered a myocardial infarction. The patient hicks d had a seizure which was observed by a neurologist and the patient was subsequently started on Keppr a. The patient came into the hospital disoriented and eventually almost obtunded. Withdrawal of Kep pra has gradually restored his level of consciousness closer to his baseline. The patient has never been a smoker or a diabetic. At the time of the admission a week back, his INR was 8 while taking 2. 5 mg of warfarin every day. PHYSICAL EXAMINATION: GENERAL: Now shows a patient who is well alert and awake, slightly slow in his response, but seems t o be aware of his surroundings and communicates with appropriate responses. He is being attended to by his . VITAL SIGNS: He breathes comfortably while propped up in bed at 16-18 breaths per minute, has a hea rt rate of 90 beats per minute, irregularly irregular with a blood pressure of 134/80 mmHg. NECK: His jugular venous pressure was not elevated. EXTREMITIES: There was mild pitting edema over both lower extremities, but much less pronounced comp ared to his earlier pedal edema. Pedal pulses were extremely feeble to almost not palpable, possibly because of pedal edema. HEART: His apex was not palpable. The first and second heart sounds were normal. A brief apical sy stolic murmur was audible. LUNGS: There were no rales, though bilateral rhonchi were audible. A few crepitations were audible. The patient kept bringing up clear expectorate by coughing during the examination. ABDOMEN: Soft. Liver and spleen were not palpable. His electrocardiogram from his recent hospitalization shows a right bundle branch block with atrial f ibrillation. ST-T changes are due to the intraventricular conduction abnormality. His echocardiogra m of December this year shows preserved left ventricular systolic function with mildly enlarged left atrium which leads me to suspect that this is as a result of left ventricular diastolic dysfunction. There is also some degree of mitral regurgitation. His labs were noted. His INR yesterday was 1.76 and warfarin was restarted. At this point, he is hemodynamically stable with heart rate which is much improved over his last admi ssion when he was bradycardic while taking digoxin, metoprolol and Cardizem. 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 Geovani Dela Cruz MD cc: [id number] TT: 04/05/2017 10:19:22 Confirmation # [id number] Dictation # [id number] tn
[2017-04-05] MEDS ORDERED: Chlorhexidine Gluconate 1 APPL/PKT TP ONE (16:10)
[2017-04-05 17:23] LABS: HEMATOCRIT 43.3 % (35.0-51.0); MEAN CELL VOLUME 93.8 fl (80.0-94.0); MEAN CORPUSCULAR HEMOGLOBIN 30.5 pg (27.0-31.0); MEAN CORPUSCULAR HGB CONC 32.5 g/dL (33.0-37.0); RED CELL DISTRIBUTION WIDTH 15.6 % (11.5-14.5); WHITE BLOOD COUNT 10.3 K/uL (4.8-10.8)
--- NOTE | 2017-04-05 18:06 | CP.PCM.PN ---
Subjective - Date & Time of Evaluation Date of Evaluation: 04/05/17 Time of Evaluation: 10:40 - Subjective Subjective: F/U AMS Awake, no A/D, no c/o. Objective - Vital Signs/Intake and Output Vital Signs (last 24 hours): Temp Pulse Resp BP Pulse Ox 97.7 F 84 20 160/102 H 100 04/05/17 08:48 04/05/17 17:43 04/05/17 08:48 04/05/17 17:43 04/05/17 08:48 - Medications Medications: Current Medications Clonidine HCl (Catapres) 0.1 mg PO BID [facility] Diltiazem HCl (Cardizem Cd) 180 mg PO DAILY [facility] Last Admin: 04/05/17 09:06 Dose: 180 mg Furosemide (Lasix) 40 mg PO DAILY [facility] Last Admin: 04/05/17 09:06 Dose: 40 mg Home Med (Dutasteride [Avodart]) 0.5 mg PO DAILY [facility] Last Admin: 04/05/17 09:07 Dose: 0.5 mg Home Med (Digoxin [Lanoxin]) 0.125 mg PO DAILY [facility] Last Admin: 04/05/17 09:08 Dose: 0.125 mg Home Med (Patient's Own Medication) 1 unit PO DAILY [facility] Last Admin: 04/05/17 09:07 Dose: 1 unit Home Med (Patient's Own Medication) 1 unit PO BID [facility] Ipratropium [place] (Atrovent) 0.5 mg IH RBID [facility] Levalbuterol HCl (Xopenex) 0.63 mg INH RBID [facility] Valproate Sodium (Depakene Oral Soln) 500 mg PO BID [facility] Last Admin: 04/05/17 17:46 Dose: 500 mg - Labs Labs: 04/05/17 16:45 PT 18.3 SECONDS (9.6-11.2) H 04/04/17 14:00 INR 1.76 (0.92-1.08) H 04/04/17 14:00 - Constitutional Appears: No Acute Distress, Chronically Ill - Head Exam Head Exam: NORMAL INSPECTION - Eye Exam Eye Exam: PERRL - ENT Exam ENT Exam: Normal Oropharynx - Neck Exam Neck Exam: Normal Inspection - Respiratory Exam Respiratory Exam: Decreased Breath Sounds (at bases) - Cardiovascular Exam Cardiovascular Exam: Irregular Rhythm - GI/Abdominal Exam GI & Abdominal Exam: Soft, Normal Bowel Sounds - Extremities Exam Additional comments: Legs edema decreased - Back Exam Additional comments: Sacral area redness - Neurological Exam Neurological Exam: Awake Additional comments: Answer questions, generalized weakness more prominent L/E. - Psychiatric Exam Psychiatric exam: Normal Mood - Skin Skin Exam: Warm Assessment and Plan (1) Leg weakness Status: Acute (2) Acute on chronic diastolic CHF (congestive heart failure) Status: Acute (3) A-fib Status: Chronic (4) HTN (hypertension) Status: Chronic (5) Old cerebrovascular accident (CVA) without late effect Status: Chronic (6) Sleep apnea Status: Chronic (7) Seizure Status: Chronic - Assessment and Plan (Free Text) Plan: Continue Dekapote, Cardizen, Lasix and rest of medications and PT. Cardiology consult appreciated.
--- NOTE | 2017-04-05 18:38 | CARD ---
APPROVED REPORT EKG Measurement Heart [id number] <Conclusion> Atrial fibrillation Left axis deviation Right bundle branch block Moderate voltage criteria for LVH, may be normal variant Abnormal ECG
[2017-04-05] MEDS ORDERED: Metoprolol Succinate 50 mg XL Tab PO STA (20:31)
[2017-04-06] MEDS ORDERED: Chlorhexidine Gluconate 1 APPL/PKT TP ONE (02:45)
[2017-04-06] MEDS: Levalbuterol 0.63 MG/3 ML Inhal Soln UD INH SCH ×2 (07:40→19:56)
[2017-04-06] MEDS: Ipratropium 0.02% Inhal Soln (0.5 mg/2.5 ml) UD IH SCH ×3 (07:40→19:55)
[2017-04-06] MEDS: diltiaZEM 180 mg/24 Hours CD Cap PO SCH (08:42)
[2017-04-06] MEDS: Patient's Own Med (Dutasteride [Avodart] 0.5 MG) PO SCH (08:43)
[2017-04-06] MEDS: DIGOXIN 0.125 MG PO SCH (08:43)
[2017-04-06] MEDS: Valproic Acid 250 mg/5 ml UD Cup PO SCH ×2 (08:43→17:16)
[2017-04-06] MEDS: ENALAPRIL PO SCH (08:44)
[2017-04-06] MEDS ORDERED: METOPROLOL SUCCINATE 50 MG PO SCH (09:00)
--- NOTE | 2017-04-06 16:30 | CP.PCM.PN ---
Subjective - Date & Time of Evaluation Date of Evaluation: 04/06/17 - Subjective Subjective: F/U Weakness. Pt with no A/D, no c/o, at bedside. Objective - Vital Signs/Intake and Output Vital Signs (last 24 hours): Temp Pulse Resp BP Pulse Ox 96.8 F L 78 20 163/82 H 97 04/06/17 16:23 04/06/17 16:23 04/06/17 16:23 04/06/17 16:23 04/06/17 16:23 - Medications Medications: Current Medications Clonidine HCl (Catapres) 0.1 mg PO BID [facility] Last Admin: 04/06/17 08:42 Dose: 0.1 mg Diltiazem HCl (Cardizem Cd) 180 mg PO DAILY [facility] Last Admin: 04/06/17 08:42 Dose: 180 mg Furosemide (Lasix) 40 mg PO DAILY [facility] Last Admin: 04/06/17 08:43 Dose: 40 mg Home Med (Dutasteride [Avodart]) 0.5 mg PO DAILY [facility] Last Admin: 04/06/17 08:43 Dose: 0.5 mg Home Med (Digoxin [Lanoxin]) 0.125 mg PO DAILY [facility] Last Admin: 04/06/17 08:43 Dose: 0.125 mg Home Med (Patient's Own Medication) 1 unit PO DAILY [facility] Last Admin: 04/06/17 08:44 Dose: 1 unit Ipratropium [place] (Atrovent) 0.5 mg IH RBID [facility] Last Admin: 04/06/17 07:40 Dose: 0.5 mg Levalbuterol HCl (Xopenex) 0.63 mg INH RBID [facility] Last Admin: 04/06/17 07:40 Dose: 0.63 mg Metoprolol Tartrate (Lopressor) 50 mg PO Q12 [facility] Last Admin: 04/06/17 08:44 Dose: 50 mg Valproate Sodium (Depakene Oral Soln) 500 mg PO BID [facility] Last Admin: 04/06/17 08:43 Dose: 500 mg Warfarin Sodium (Coumadin) 5 mg PO ONCE ONE PRN Reason: Protocol Stop: 04/06/17 17:01 - Labs Labs: 04/05/17 16:45 PT 15.3 SECONDS (9.6-11.2) H 04/06/17 08:00 INR 1.47 (0.92-1.08) H 04/06/17 08:00 - Constitutional Appears: No Acute Distress - Head Exam Head Exam: NORMAL INSPECTION - Eye Exam Eye Exam: PERRL - ENT Exam ENT Exam: Normal Oropharynx - Neck Exam Neck Exam: Normal Inspection - Respiratory Exam Respiratory Exam: Decreased Breath Sounds (at bases) - Cardiovascular Exam Cardiovascular Exam: Irregular Rhythm - GI/Abdominal Exam GI & Abdominal Exam: Soft, Normal Bowel Sounds - Extremities Exam Additional comments: Legs edema decreased - Back Exam Additional comments: Sacral area redness - Neurological Exam Neurological Exam: Awake Additional comments: Answer questions, generalized weakness more prominent L/E - Psychiatric Exam Psychiatric exam: Normal Mood - Skin Skin Exam: Warm Assessment and Plan (1) Leg weakness Status: Acute (2) Coumadin toxicity Status: Deleted (3) HTN (hypertension) Status: Chronic (4) Old cerebrovascular accident (CVA) without late effect Status: Chronic (5) Sleep apnea Status: Chronic (6) Seizure Status: Chronic - Assessment and Plan (Free Text) Plan: Continue Lopressor, Cardizem, Catapres, Depakote, Lasix, rest of Tx, f/u Neuro consult.
[2017-04-07] MEDS: Levalbuterol 0.63 MG/3 ML Inhal Soln UD INH SCH ×2 (08:02→19:31)
[2017-04-07] MEDS: Ipratropium 0.02% Inhal Soln (0.5 mg/2.5 ml) UD IH SCH ×2 (08:02→19:31)
[2017-04-07] MEDS: diltiaZEM 180 mg/24 Hours CD Cap PO SCH (08:48)
[2017-04-07] MEDS: Valproic Acid 250 mg/5 ml UD Cup PO SCH ×2 (08:49→17:27)
[2017-04-07] MEDS: Patient's Own Med (Dutasteride [Avodart] 0.5 MG) PO SCH (08:49)
[2017-04-07] MEDS: DIGOXIN 0.125 MG PO SCH (08:49)
[2017-04-07] MEDS: ENALAPRIL PO SCH (08:50)
[2017-04-08] MEDS: Ipratropium 0.02% Inhal Soln (0.5 mg/2.5 ml) UD IH SCH ×2 (08:31→19:32)
[2017-04-08] MEDS: Levalbuterol 0.63 MG/3 ML Inhal Soln UD INH SCH ×2 (08:31→19:32)
[2017-04-08] MEDS: Patient's Own Med (Dutasteride [Avodart] 0.5 MG) PO SCH (08:32)
[2017-04-08] MEDS: diltiaZEM 180 mg/24 Hours CD Cap PO SCH (08:34)
[2017-04-08] MEDS: ENALAPRIL PO SCH (08:34)
[2017-04-08] MEDS: DIGOXIN 0.125 MG PO SCH (08:35)
[2017-04-08] MEDS: Valproic Acid 250 mg/5 ml UD Cup PO SCH ×2 (08:35→19:21)
--- NOTE | 2017-04-08 16:41 | CP.PCM.PN ---
Subjective - Date & Time of Evaluation Date of Evaluation: 04/08/17 Time of Evaluation: 12:00 - Subjective Subjective: F/U Weakness. Pt lethargic, usually early in AM with some difficulty to have PT there after during rest of the day more alert. Objective - Vital Signs/Intake and Output Vital Signs (last 24 hours): Temp Pulse Resp BP Pulse Ox 97.9 F 73 20 185/97 H 99 04/08/17 08:16 04/08/17 08:34 04/08/17 08:16 04/08/17 08:34 04/08/17 08:16 - Medications Medications: Current Medications Clonidine HCl (Catapres) 0.1 mg PO BID [facility] Last Admin: 04/08/17 08:34 Dose: 0.1 mg Diltiazem HCl (Cardizem Cd) 180 mg PO DAILY [facility] Last Admin: 04/08/17 08:34 Dose: 180 mg Furosemide (Lasix) 40 mg PO DAILY [facility] Last Admin: 04/08/17 08:34 Dose: 40 mg Home Med (Dutasteride [Avodart]) 0.5 mg PO DAILY [facility] Last Admin: 04/08/17 08:32 Dose: Not Given Home Med (Digoxin [Lanoxin]) 0.125 mg PO DAILY [facility] Last Admin: 04/08/17 08:35 Dose: 0.125 mg Home Med (Patient's Own Medication) 1 unit PO DAILY [facility] Last Admin: 04/08/17 08:34 Dose: 1 unit Ipratropium [place] (Atrovent) 0.5 mg IH RBID [facility] Last Admin: 04/08/17 08:31 Dose: 0.5 mg Levalbuterol HCl (Xopenex) 0.63 mg INH RBID [facility] Last Admin: 04/08/17 08:31 Dose: 0.63 mg Metoprolol Tartrate (Lopressor) 50 mg PO Q12 [facility] Last Admin: 04/08/17 08:34 Dose: 50 mg Valproate Sodium (Depakene Oral Soln) 500 mg PO BID [facility] Last Admin: 04/08/17 08:35 Dose: 500 mg Warfarin Sodium (Coumadin) 1 mg PO QD5 [facility] PRN Reason: Protocol Stop: 04/08/17 17:01 - Labs Labs: 04/05/17 16:45 PT 25.7 SECONDS (9.6-11.2) H D 04/08/17 07:20 INR 2.47 (0.92-1.08) H D 04/08/17 07:20 - Constitutional Appears: No Acute Distress - Head Exam Head Exam: NORMAL INSPECTION - Eye Exam Eye Exam: PERRL - ENT Exam ENT Exam: Normal Oropharynx - Neck Exam Neck Exam: Normal Inspection - Respiratory Exam Respiratory Exam: Decreased Breath Sounds (at bases) - Cardiovascular Exam Cardiovascular Exam: Irregular Rhythm - GI/Abdominal Exam GI & Abdominal Exam: Soft, Normal Bowel Sounds - Extremities Exam Additional comments: Legs edema - Neurological Exam Neurological Exam: Awake Additional comments: Forgetful, generalized weakness, more prominent L/E - Psychiatric Exam Psychiatric exam: Normal Mood - Skin Skin Exam: Warm Assessment and Plan (1) Leg weakness Status: Acute (2) Coumadin toxicity Status: Deleted (3) Acute on chronic diastolic CHF (congestive heart failure) Status: Deleted (4) A-fib Status: Deleted (5) HTN (hypertension) Status: Chronic (6) Old cerebrovascular accident (CVA) without late effect Status: Chronic (7) Sleep apnea Status: Chronic (8) Seizure Status: Chronic - Assessment and Plan (Free Text) Plan: Continue PT and rest of tx, f/u Neurology.
[2017-04-08] MEDS ORDERED: Chlorhexidine Gluconate 1 APPL/PKT TP ONE (19:49)
--- NOTE | 2017-04-08 20:27 | PCM.RRTMUL ---
DISABILITY REPRESENTATIVE Nurse Assessment - Vital Signs Blood Pressure:: 142/82 I.Reason for DISABILITY REPRESENTATIVE - A) Acute Change in Patient: Subjective: DISABILITY REPRESENTATIVE: Time: 7:34 DISABILITY REPRESENTATIVE arrival time: 7:36 DISABILITY REPRESENTATIVE location: [place] [address] DISABILITY REPRESENTATIVE vitals: 152/88, HR: 86, Temp: 97.7 S: DISABILITY REPRESENTATIVE was called by RN after pt was unarousable by verbal and physical stimulus ( tapping in the shoulder.) By the time the medical team arrived the patient was alert and responding to verbal stimuli. The nurse was able arouse the patient by shaking him with physical stimuli with the at the bedside. The patient had been admitted for AMS/hallucinations secondary to Kepra toxicity and currently has been switched to valporic acid. The states patient did not sleep well last night. Currently the states that the patient is back to his baseline after he has been awoken. O: General : No acute distress, chronically ill Eye Exam: PEERLA Resp: Wheezing and crackles heard b/l. Decreased breath sounds at the bases Cardio: S1S2 heard GI: soft NTND, BS+ [employer] TECHNICIAN: Alert: follows commands, generalized weakness A: 76 YO M who was admitted for AMS and hallucination secondary to kepra toxicity , had an DISABILITY REPRESENTATIVE called because of difficulty to arouse the patient P: - Continue current medical management Dr. Ch hospitalist was present during entire DISABILITY REPRESENTATIVE at bedside and answered all questions asked by the .
[2017-04-08 20:47] LABS: BILIRUBIN,TOTAL 0.5 mg/dl (0.2-1.3); TOTAL PROTEIN 6.3 G/DL (6.3-8.2)
[2017-04-09] MEDS: Levalbuterol 0.63 MG/3 ML Inhal Soln UD INH SCH ×2 (07:48→20:46)
[2017-04-09] MEDS: Ipratropium 0.02% Inhal Soln (0.5 mg/2.5 ml) UD IH SCH ×2 (07:48→20:46)
[2017-04-09] MEDS: Patient's Own Med (Dutasteride [Avodart] 0.5 MG) PO SCH (08:26)
[2017-04-09] MEDS: DIGOXIN 0.125 MG PO SCH (08:27)
[2017-04-09] MEDS: ENALAPRIL PO SCH (08:27)
[2017-04-09] MEDS: Valproic Acid 250 mg/5 ml UD Cup PO SCH ×2 (08:28→16:59)
[2017-04-09] MEDS: diltiaZEM 180 mg/24 Hours CD Cap PO SCH (08:28)
--- NOTE | 2017-04-09 17:33 | CP.PCM.PN ---
Subjective - Date & Time of Evaluation Date of Evaluation: 04/09/17 Time of Evaluation: 12:30 - Subjective Subjective: F/U Weakness. Pt awake, answering questions, Pt's at bedside. Patient had [employer] yesterday , Patient was unarousable, Patient became responsive when was seen by [employer]ER. Objective - Vital Signs/Intake and Output Vital Signs (last 24 hours): Temp Pulse Resp BP Pulse Ox 97.2 F L 81 20 186/88 H 97 04/09/17 16:50 04/09/17 16:58 04/09/17 16:50 04/09/17 16:58 04/09/17 16:50 - Medications Medications: Current Medications Clonidine HCl (Catapres) 0.1 mg PO BID [facility] Last Admin: 04/09/17 16:58 Dose: 0.1 mg Diltiazem HCl (Cardizem Cd) 180 mg PO DAILY [facility] Last Admin: 04/09/17 08:28 Dose: 180 mg Furosemide (Lasix) 40 mg PO DAILY [facility] Last Admin: 04/09/17 08:27 Dose: 40 mg Home Med (Dutasteride [Avodart]) 0.5 mg PO DAILY [facility] Last Admin: 04/09/17 08:26 Dose: 0.5 mg Home Med (Digoxin [Lanoxin]) 0.125 mg PO DAILY [facility] Last Admin: 04/09/17 08:27 Dose: 0.125 mg Home Med (Patient's Own Medication) 1 unit PO DAILY [facility] Last Admin: 04/09/17 08:27 Dose: 1 unit Ipratropium [place] (Atrovent) 0.5 mg IH RBID [facility] Last Admin: 04/09/17 07:48 Dose: 0.5 mg Levalbuterol HCl (Xopenex) 0.63 mg INH RBID [facility] Last Admin: 04/09/17 07:48 Dose: 0.63 mg Metoprolol Tartrate (Lopressor) 50 mg PO Q12 [facility] Last Admin: 04/09/17 08:27 Dose: 50 mg Valproate Sodium (Depakene Oral Soln) 500 mg PO BID [facility] Last Admin: 04/09/17 16:59 Dose: 500 mg - Labs Labs: 04/05/17 16:45 PT 31.0 SECONDS (9.6-11.2) H* D 04/09/17 06:57 INR 2.98 (0.92-1.08) H 04/09/17 06:57 - Constitutional Appears: No Acute Distress - Head Exam Head Exam: NORMAL INSPECTION - Eye Exam Eye Exam: PERRL - ENT Exam ENT Exam: Normal Oropharynx - Neck Exam Neck Exam: Normal Inspection - Respiratory Exam Respiratory Exam: Decreased Breath Sounds (at bases) - Cardiovascular Exam Cardiovascular Exam: Irregular Rhythm - GI/Abdominal Exam GI & Abdominal Exam: Soft, Normal Bowel Sounds - Extremities Exam Additional comments: Legs edema - Neurological Exam Neurological Exam: Awake Additional comments: Forgetful, generalized weakness, more prominent L/E - Psychiatric Exam Psychiatric exam: Normal Mood - Skin Skin Exam: Warm Assessment and Plan (1) Leg weakness Status: Acute (2) Coumadin toxicity Status: Deleted (3) Acute on chronic diastolic CHF (congestive heart failure) Status: Deleted (4) A-fib Status: Deleted (5) HTN (hypertension) Status: Chronic (6) Old cerebrovascular accident (CVA) without late effect Status: Chronic (7) Sleep apnea Status: Chronic (8) Seizure Status: Chronic - Assessment and Plan (Free Text) Plan: Pt's stated he is more alert, Depakote was hold yesterday evening and was given in AM, there after on hold until seen by Neurology environmental remediation consultant, Neurology recommended to have an electroencephalogram , MRI Brain
--- NOTE | 2017-04-09 18:42 | PN ---
DATE: 04/09/2017 NEUROLOGICAL PROBLEM: Recurrent seizures with a change in mental status with a significant history of cerebral stroke. PHYSICAL EXAMINATION: VITAL SIGNS: Blood pressure 186/88, mean arterial pressure if 120, respiratory rate is 16, temperature 97.2 degrees Fahrenheit, pulse rate 81. The events been noted. The patient does have some change in mental status as per the 's statement all related to the Depakote. The patient's levels are being checked which is a therapeutic level which is 62. Liver functions are normal. His prolactin level was 10.3. Valproic level is 65.1. The patient is examined in the presence of his . He is awake, alert, oriented to person and place. His speech is spontaneous. However, he answers the questions. He moves all 4 extremities, arms more than his legs. Deep tendon reflexes are absent. Plantars are upgoing on both sides. The patient does not show any toxic side effects from Depakote. I totally agreed that any central nervous system drugs have been given expected side effects such as drowsiness or sleepiness is more common have been extensively discussed with his . I further explained, her about her 's illness and recurrent episode of previous hospitalization and of loss of consciousness and one episode in front of me with a change in mental status, speech arrest with urinary incontinence with aging and Vascular Dementia. It seems his agrees with our management. Still she is blaming the medication, which has been a changing his mental status. I would like to do MRI of the brain to rule out any ischemic process or any change in radiological findings to compare with the previous MRI. I also recommended him to have electroencephalogram to assess the electrographic activities. The patient's condition also discussed with Dr. Escamilla. Definitely, the patient should need antiepileptic drug. On best to all clinical knowledge, he definitely needs antiepileptic drugs to control his seizures . The patient will be followed while he is in the hospital . Delfin Ornelas MD cc: [id number] TT: 04/09/2017 18:41:43 Confirmation # [id number] Dictation # [id number] giovana BLAIR
[2017-04-10] MEDS: Levalbuterol 0.63 MG/3 ML Inhal Soln UD INH SCH ×2 (08:05→19:50)
[2017-04-10] MEDS: Ipratropium 0.02% Inhal Soln (0.5 mg/2.5 ml) UD IH SCH ×2 (08:06→19:50)
[2017-04-10] MEDS: LASIX 40 MG PO SCH (08:21)
[2017-04-10] MEDS: ENALAPRIL PO SCH (08:22)
[2017-04-10] MEDS: Patient's Own Med (Dutasteride [Avodart] 0.5 MG) PO SCH (08:22)
[2017-04-10] MEDS: DIGOXIN 0.125 MG PO SCH (08:22)
[2017-04-10] MEDS: diltiaZEM 180 mg/24 Hours CD Cap PO SCH (08:23)
[2017-04-10] MEDS: Valproic Acid 250 mg/5 ml UD Cup PO SCH ×2 (08:28→17:24)
--- NOTE | 2017-04-10 14:21 | EEG ---
DATE: 04/10/2017 CONDITION ON RECORDING: Drowsy. DIAGNOSIS: Seizure. MEDICATIONS: Reviewed via nurse's reconciliation sheet. The patient is on Depakote. INTERPRETATION: This is a 16-channel international recording. The background activity is composed o f 6 cycles per second. There was a small amount of beta activity 16-20 cycles per second seen in thi s recording, which is limited. There is increased amount of theta activity 5-7 cycles per second see n in this tracing. Drowsiness characterized by mixed beta and theta activities. Sleep was character ized by vertex transient waves, sleep spindles and bilateral slowing. Photic stimulation showed no c hange in the tracing. No paroxysmal activity noted in this recording. CONCLUSION: Abnormal electroencephalogram due to presence of diffuse slowing throughout the recordin g consistent with bilateral cerebral dysfunction. Please clinically correlate. No epileptiform acti vity noted. Rad Anderson MD cc: [id number] TT: 04/10/2017 14:20:51 Confirmation # [id number] Dictation # [id number] emily
--- NOTE | 2017-04-10 15:32 | CP.PCM.PN ---
Subjective - Date & Time of Evaluation Date of Evaluation: 04/10/17 Time of Evaluation: 11:00 - Subjective Subjective: F/U weakness. Pt awake, answering questions, at bedside, eating well. Objective - Vital Signs/Intake and Output Vital Signs (last 24 hours): Temp Pulse Resp BP Pulse Ox 98.1 F 79 87 H 154/83 H 99 04/10/17 08:05 04/10/17 08:24 04/10/17 09:08 04/10/17 09:08 04/10/17 08:05 - Medications Medications: Current Medications Clonidine HCl (Catapres) 0.1 mg PO BID [facility] Last Admin: 04/10/17 08:22 Dose: 0.1 mg Diltiazem HCl (Cardizem Cd) 180 mg PO DAILY [facility] Last Admin: 04/10/17 08:23 Dose: 180 mg Home Med (Dutasteride [Avodart]) 0.5 mg PO DAILY [facility] Last Admin: 04/10/17 08:22 Dose: 0.5 mg Home Med (Digoxin [Lanoxin]) 0.125 mg PO DAILY [facility] Last Admin: 04/10/17 08:22 Dose: 0.125 mg Home Med (Patient's Own Medication) 1 unit PO DAILY [facility] Last Admin: 04/10/17 08:22 Dose: 1 unit Home Med (Patient's Own Medication) 1 unit PO DAILY [facility] Last Admin: 04/10/17 08:21 Dose: 1 unit Ipratropium [place] (Atrovent) 0.5 mg IH RBID [facility] Last Admin: 04/10/17 08:06 Dose: 0.5 mg Levalbuterol HCl (Xopenex) 0.63 mg INH RBID [facility] Last Admin: 04/10/17 08:05 Dose: 0.63 mg Metoprolol Tartrate (Lopressor) 50 mg PO Q12 [facility] Last Admin: 04/10/17 08:24 Dose: 50 mg Valproate Sodium (Depakene Oral Soln) 500 mg PO BID [facility] Last Admin: 04/10/17 08:28 Dose: 500 mg Warfarin Sodium (Coumadin) 2.5 mg PO QD5 [facility] PRN Reason: Protocol Stop: 04/10/17 17:01 - Labs Labs: 04/05/17 16:45 PT 24.9 SECONDS (9.6-11.2) H D 04/10/17 07:55 INR 2.39 (0.92-1.08) H D 04/10/17 07:55 - Constitutional Appears: No Acute Distress - Head Exam Head Exam: NORMAL INSPECTION - Eye Exam Eye Exam: PERRL - ENT Exam ENT Exam: Normal Oropharynx - Neck Exam Neck Exam: Normal Inspection - Respiratory Exam Respiratory Exam: Decreased Breath Sounds (at bases) - Cardiovascular Exam Cardiovascular Exam: Irregular Rhythm - GI/Abdominal Exam GI & Abdominal Exam: Soft, Normal Bowel Sounds - Extremities Exam Additional comments: Legs edema - Neurological Exam Neurological Exam: Awake Additional comments: Forgetful, generalized weakness more prominent l/E - Psychiatric Exam Psychiatric exam: Normal Mood - Skin Skin Exam: Warm Assessment and Plan (1) Leg weakness Status: Acute (2) Coumadin toxicity Status: Deleted (3) Acute on chronic diastolic CHF (congestive heart failure) Status: Deleted (4) A-fib Status: Deleted (5) HTN (hypertension) Status: Chronic (6) Old cerebrovascular accident (CVA) without late effect Status: Chronic (7) Sleep apnea Status: Chronic (8) Seizure Status: Acute (9) Seizure Status: Chronic - Assessment and Plan (Free Text) Plan: Discussed with therapist about he feels Pt is candidate for MONICA, Pt still with generalized weakness, Pt's at bed side agrees with MONICA. Also we will call Neurologist Dr Cole for 2nd opinion about the use of anti-seizure medication may affect Pt progress with PT.
--- NOTE | 2017-04-11 00:25 | CP.PCM.CON ---
History of Present Illness - History of Present Illness History of Present Illness: 76 y/o M, admitted to TCU on 04/03/17 for PT,OT. Recent admission to [facility] on 03/28/17 for Hallucinations/AMS 2nd to Keppra side effects of Paranoia. There after Pt improved and was transferred to TCU to receive PT, OT 2nd to Left sided weakness, more prominent in lower extremity. Hx of Generalized weakness, A Fib on Coumadin, HTN, Old CVA, Chronic CHF, Sleep Apnea. Pt is awake, at bedside, smiling, no c/o, no A/D, no SOB, at times cough with scanty amount of phlegms, BP: 193/96 HR: 76. The first seizure was few months ago and consisted of a staring spell and a non responsiveness. He had an WOOL BUYER very recently for being non responsive for a while, then he regained his consciousness. His EEG was abnormal and his is not welcoming a new MRI Brain to R/O a new CVA due to his Sleep apnea and due to his previous difficulty while having the first MRI Brain. The new CT Brain is not showing any new findings. Family Hx: Unknown. Any Indicators Present on Admission: No Review of Systems - Constitutional Constitutional: Weakness - EENT Eyes: Requires Corrective Lenses Ears: Other (negative) Nose/Mouth/Throat: Other (negative) Cardiovascular Cardiovascular: Irregular Heart Rhythm, Leg Edema - Respiratory Respiratory: Cough - Gastrointestinal Gastrointestinal: Other (negative) - Genitourinary Genitourinary: Urinary Incontinence - Musculoskeletal Musculoskeletal: Other (negative) - Integumentary Integumentary: Erythema (Sacral area), Sores (L knee) - Neurological Neurological: Weakness - Psychiatric Psychiatric: Other (negative) - Endocrine Endocrine: Other (negative) - Hematologic/Lymphatic Hematologic: Other (negative) Past Patient History - Infectious Disease Hx of Infectious Diseases: None - Past Medical History & Family History Past Medical History?: Yes Pertinent Family History: Unknown - Past Social History Smoking Status: Never Smoked Alcohol: None Drugs: Denies Home Situation {Lives}: With Family - CARDIAC Hx Cardiac Disorders: Yes Hx Atrial Fibrillation: Yes Hx Hypertension: Yes - PULMONARY Hx Respiratory Disorders: Yes Hx Sleep Apnea: Yes - NEUROLOGICAL Hx Neurological Disorder: Yes HX Cerebrovascular Accident: Yes - HEENT Hx HEENT Problems: No - RENAL Hx Chronic Kidney Disease: No - ENDOCRINE/METABOLIC Hx Endocrine Disorders: No - HEMATOLOGICAL/ONCOLOGICAL Hx Blood Disorders: No Hx Human Immunodeficiency Virus (HIV): No - INTEGUMENTARY Hx Dermatological Problems: No - MUSCULOSKELETAL/RHEUMATOLOGICAL Hx Musculoskeletal Disorders: No Hx Falls: No - GASTROINTESTINAL Hx Gastrointestinal Disorders: No - GENITOURINARY/GYNECOLOGICAL Hx Genitourinary Disorders: Yes Hx Incontinence: Yes Other/Comment: BPH - PSYCHIATRIC Hx Psychophysiologic Disorder: No Hx Substance Use: No - SURGICAL HISTORY Hx Surgeries: No - ANESTHESIA Hx Anesthesia: No Hx Anesthesia Reactions: No Hx Malignant Hyperthermia: No Meds Allergies/Adverse Reactions: Allergies Allergy/AdvReac Type Severity Reaction Status Date / Time No Known Allergies Allergy Verified 02/27/16 09:59 Physical Exam - Constitutional Appears: No Acute Distress, Chronically Ill - Head Exam Head Exam: NORMAL INSPECTION - Eye Exam Eye Exam: PERRL - ENT Exam ENT Exam: Normal Oropharynx - Neck Exam Neck exam: Positive for: Normal Inspection - Respiratory Exam Respiratory Exam: Decreased Breath Sounds (at bases) - Cardiovascular Exam Cardiovascular Exam: Irregular Rhythm - GI/Abdominal Exam GI & Abdominal Exam: Normal Bowel Sounds, Soft - Extremities Exam Additional comments: Legs edema - Back Exam Additional comments: Redness sacral area, prominent L/E - Neurological Exam Neurological exam: Alert (Follows commands, generalized weakness) - Psychiatric Exam Psychiatric exam: Normal Mood - Skin Skin Exam: Warm Results - Vital Signs Recent Vital Signs: Last Vital Signs Temp 97.3 F L 04/04/17 16:49 Pulse 76 04/04/17 16:49 Resp 20 04/04/17 16:49 BP 193/96 H 04/04/17 16:49 Pulse Ox 97 04/04/17 16:49 reviewed J.P. - Labs Labs: Laboratory Results - last 24 hr 04/04/17 04/04/17 06:53 14:00 PT 15.7 H 18.3 H INR 1.51 H 1.76 H reviewed J.P. Assessment & Plan (1) Leg weakness Status: Acute Priority: High (2) Coumadin toxicity Status: Acute Priority: High (3) Acute on chronic diastolic CHF (congestive heart failure) Status: Acute Priority: High (4) A-fib Status: Chronic Priority: High (5) HTN (hypertension) Status: Chronic Priority: High (6) Old cerebrovascular accident (CVA) without late effect Status: Chronic (7) Sleep apnea Status: Chronic Priority: High - Assessment and Plan (Free Text) The Plan is to. We can not Continue Depakote, as Depakote is specifically given for GTC Seizures , while the patient has a h/o CPSz, presenting as Staring spells. The objects both the Depakote and the Keppra Depakote now needs to be discontinued and Keppra cannot be restarted due to causing paranoid side effects. It is recommended to start Lamictal at this point as it helps Seizures, Paranoid manifestations, behavioral problems at this age. Lamictal is to be started slowly at 25 mg Q12 hrs X 1 week, Then 50 mg Q 12 Hrs X 2 weeks then 100 mg Q 12 hrs X 1 week Then 150 mg Q 12hrs It might be increased gradually up to 250 mg Q 12 Hrs as a maximum. Patient might be controlled by Benzodiazepines for any seizures, as IV Ativan 2mg Q 6 hrs PRN Seizures Or Rectal Diastat 10 TID PRN Seizures, but we cannot give IV Ativan together with Rectal Diastat. Either, or. Treat Cardiac causes as they may be causing aggravation of his problems. He will be continued on his medicine as Cardizem, Lasix, rest of Tx, PT,OT, and Cardiology consult has recommended to continue the same cardiac treatment. Continue treatment for Sleep Apnea with his CPAP. Condition is discussed with Dr Escamilla. Past Patient History - Infectious Disease Hx of Infectious Diseases: None - Past Medical History & Family History Past Medical History?: Yes - Past Social History Smoking Status: Never Smoked Alcohol: None Drugs: Denies Home Situation {Lives}: With Family - CARDIAC Hx Cardiac Disorders: Yes Hx Atrial Fibrillation: Yes Hx Hypertension: Yes - PULMONARY Hx Respiratory Disorders: Yes Hx Sleep Apnea: Yes - NEUROLOGICAL Hx Neurological Disorder: Yes HX Cerebrovascular Accident: Yes - HEENT Hx HEENT Problems: No - RENAL Hx Chronic Kidney Disease: No - ENDOCRINE/METABOLIC Hx Endocrine Disorders: No - HEMATOLOGICAL/ONCOLOGICAL Hx Blood Disorders: No Hx Human Immunodeficiency Virus (HIV): No - INTEGUMENTARY Hx Dermatological Problems: No - MUSCULOSKELETAL/RHEUMATOLOGICAL Hx Musculoskeletal Disorders: No Hx Falls: No - GASTROINTESTINAL Hx Gastrointestinal Disorders: No - GENITOURINARY/GYNECOLOGICAL Hx Genitourinary Disorders: Yes Hx Incontinence: Yes Other/Comment: BPH - PSYCHIATRIC Hx Psychophysiologic Disorder: No Hx Substance Use: No - SURGICAL HISTORY Hx Surgeries: No - ANESTHESIA Hx Anesthesia: No Hx Anesthesia Reactions: No Hx Malignant Hyperthermia: No Meds Allergies/Adverse Reactions: Allergies Allergy/AdvReac Type Severity Reaction Status Date / Time No Known Allergies Allergy Verified 02/27/16 09:59 - Medications Medications: Current Medications Clonidine HCl (Catapres) 0.1 mg PO BID [facility] Last Admin: 04/10/17 17:24 Dose: 0.1 mg Diltiazem HCl (Cardizem Cd) 180 mg PO DAILY [facility] Last Admin: 04/10/17 08:23 Dose: 180 mg Home Med (Dutasteride [Avodart]) 0.5 mg PO DAILY [facility] Last Admin: 04/10/17 08:22 Dose: 0.5 mg Home Med (Digoxin [Lanoxin]) 0.125 mg PO DAILY [facility] Last Admin: 04/10/17 08:22 Dose: 0.125 mg Home Med (Patient's Own Medication) 1 unit PO DAILY [facility] Last Admin: 04/10/17 08:22 Dose: 1 unit Home Med (Patient's Own Medication) 1 unit PO DAILY [facility] Last Admin: 04/10/17 08:21 Dose: 1 unit Ipratropium [place] (Atrovent) 0.5 mg IH RBID [facility] Last Admin: 04/10/17 19:50 Dose: 0.5 mg Levalbuterol HCl (Xopenex) 0.63 mg INH RBID [facility] Last Admin: 04/10/17 19:50 Dose: 0.63 mg Metoprolol Tartrate (Lopressor) 50 mg PO Q12 [facility] Last Admin: 04/10/17 22:26 Dose: 50 mg Valproate Sodium (Depakene Oral Soln) 500 mg PO BID [facility] Last Admin: 04/10/17 17:24 Dose: 500 mg Physical Exam - Neurological Exam Additional comments: Patient is lying down in bed. MS Awake, alert, Oriented X 3 very slow memory, very dysarthric and weak speech. Cranial Nerves II to XII: no major deficits except for his weak speech Central Tongue Swallowing is normal Motor; Low tone in general Power is weak 4/5, slightly weaker on the left DTR is 0/4 Toes are down going by plantar stimulation on the right side, equivocal on the left no tremors are seen Sensory: No deficits, he feels pain on moving his joints in his UEs and LEs Cerebellar: Normal FNT unable to do HST and Tandem walking Stature and Gait: Unable to walk now, is used to walk with a walker. Results - Vital Signs Recent Vital Signs: Last Vital Signs Temp 97.3 F L 04/10/17 21:46 Pulse 79 04/10/17 21:46 Resp 20 04/10/17 21:46 BP 169/87 H 04/10/17 22:26 Pulse Ox 96 04/10/17 21:46 - Labs Result Diagrams: 04/05/17 16:45 Labs: Laboratory Results - last 24 hr 04/10/17 07:55 PT 24.9 H D INR 2.39 H D Assessment & Plan (1) HTN (hypertension) Assessment and Plan: Receiving treatment Status: Chronic Priority: High (2) Acute on chronic diastolic CHF (congestive heart failure) Assessment and Plan: On Digoxin and CPAP He has a Sleep Apnea. Status: Acute Priority: High (3) Altered mental status Assessment and Plan: This might be due to many causes including Cardiac causes, sleep apnea, Seizures , COPD Status: Acute Priority: High (4) Atrial fibrillation with RVR Assessment and Plan: Receiving treatment Status: Acute Priority: High (5) Coumadin toxicity Assessment and Plan: Coumadin on hold Status: Acute Priority: High (6) Facial laceration Assessment and Plan: Healing, it was related to a trauma. 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 The first seizure was few months ago and consisted of a staring spell and a non responsiveness. He had an WOOL BUYER very recently for being non responsive for a while, then he regained his consciousness. His EEG was abnormal and his is not welcoming a new MRI Brain to R/O a new CVA due to his Sleep apnea and due to his previous difficulty while having the first MRI Brain. The new CT Brain is not showing any new findings. We can not Continue Depakote, as Depakote is specifically given for GTC Seizures , while the patient has a h/o CPSz, presenting as Staring spells. The objects both the Depakote and the Keppra Depakote now needs to be discontinued and Keppra cannot be restarted due to causing paranoid side effects. It is recommended to start Lamictal at this point as it helps Seizures, Paranoid manifestations, behavioral problems at this age. Lamictal is to be started slowly at 25 mg Q12 hrs X 1 week, Then 50 mg Q 12 Hrs X 2 weeks then 100 mg Q 12 hrs X 1 week Then 150 mg Q 12hrs It might be increased gradually up to 250 mg Q 12 Hrs as a maximum. Patient might be controlled by Benzodiazepines for any seizures, as IV Ativan 2mg Q 6 hrs PRN Seizures Or Rectal Diastat 10 TID PRN Seizures, but we cannot combine IV Ativan together with Rectal Diastat. Either IV Ativan or Rectal Diastat. We can start him meanwhile on Po Dilantin 1000 mg day 1, then 300 mg/Day until his Lamictal dose is adequate at 150 mg Q12 hrs, then D/C Depakote. Treat Cardiac causes as they may be causing aggravation of his problems. He will be continued on his medicine as Cardizem, Lasix, rest of Tx, PT,OT, and Cardiology consult has recommended to continue the same cardiac treatment. Continue treatment for Sleep Apnea with his CPAP. Condition is discussed with Dr Escamilla. He needs to go to a Rehab to receive PT, OT, ST. until he improves. Status: Acute
--- NOTE | 2017-04-11 06:46 | CP.PCM.PN ---
Subjective - Date & Time of Evaluation Date of Evaluation: 04/11/17 - Subjective Subjective: I will be signing off the case to follow now. To many neurologists to take care of one problem. I would like Dr Cole to continue to follow up the case and continue his recommendations for the patient's benefit. Thanks Objective - Vital Signs/Intake and Output Vital Signs (last 24 hours): Temp Pulse Resp BP Pulse Ox 97.3 F L 79 20 169/87 H 96 04/10/17 21:46 04/10/17 21:46 04/10/17 21:46 04/10/17 22:26 04/10/17 21:46 - Medications Medications: Current Medications Clonidine HCl (Catapres) 0.1 mg PO BID [facility] Last Admin: 04/10/17 17:24 Dose: 0.1 mg Diltiazem HCl (Cardizem Cd) 180 mg PO DAILY [facility] Last Admin: 04/10/17 08:23 Dose: 180 mg Home Med (Dutasteride [Avodart]) 0.5 mg PO DAILY [facility] Last Admin: 04/10/17 08:22 Dose: 0.5 mg Home Med (Digoxin [Lanoxin]) 0.125 mg PO DAILY [facility] Last Admin: 04/10/17 08:22 Dose: 0.125 mg Home Med (Patient's Own Medication) 1 unit PO DAILY [facility] Last Admin: 04/10/17 08:22 Dose: 1 unit Home Med (Patient's Own Medication) 1 unit PO DAILY [facility] Last Admin: 04/10/17 08:21 Dose: 1 unit Ipratropium [place] (Atrovent) 0.5 mg IH RBID [facility] Last Admin: 04/10/17 19:50 Dose: 0.5 mg Levalbuterol HCl (Xopenex) 0.63 mg INH RBID [facility] Last Admin: 04/10/17 19:50 Dose: 0.63 mg Metoprolol Tartrate (Lopressor) 50 mg PO Q12 [facility] Last Admin: 04/10/17 22:26 Dose: 50 mg Valproate Sodium (Depakene Oral Soln) 500 mg PO BID [facility] Last Admin: 04/10/17 17:24 Dose: 500 mg - Labs Labs: 04/05/17 16:45 PT 24.9 SECONDS (9.6-11.2) H D 04/10/17 07:55 INR 2.39 (0.92-1.08) H D 04/10/17 07:55
[2017-04-11] MEDS: Ipratropium 0.02% Inhal Soln (0.5 mg/2.5 ml) UD IH SCH ×2 (07:31→19:23)
[2017-04-11] MEDS: Levalbuterol 0.63 MG/3 ML Inhal Soln UD INH SCH ×2 (07:31→19:21)
[2017-04-11] MEDS: diltiaZEM 180 mg/24 Hours CD Cap PO SCH (08:33)
[2017-04-11] MEDS: Valproic Acid 250 mg/5 ml UD Cup PO SCH ×2 (08:34→17:27)
[2017-04-11] MEDS: Patient's Own Med (Dutasteride [Avodart] 0.5 MG) PO SCH (08:34)
[2017-04-11] MEDS: DIGOXIN 0.125 MG PO SCH (08:35)
[2017-04-11] MEDS: LASIX 40 MG PO SCH (08:35)
[2017-04-11] MEDS: ENALAPRIL PO SCH (08:35)
--- NOTE | 2017-04-11 14:12 | CP.PCM.PN ---
Subjective - Date & Time of Evaluation Date of Evaluation: 04/11/17 Time of Evaluation: 12:30 - Subjective Subjective: F/U Weakness. Pt awake, answering simple questions, Pt's at bed side, c/o of generalized weakness. Objective - Vital Signs/Intake and Output Vital Signs (last 24 hours): Temp Pulse Resp BP Pulse Ox 97.3 F L 74 20 173/84 H 100 04/11/17 08:32 04/11/17 08:34 04/11/17 08:32 04/11/17 08:34 04/11/17 08:32 - Medications Medications: Current Medications Clonidine HCl (Catapres) 0.1 mg PO BID [facility] Last Admin: 04/11/17 08:34 Dose: 0.1 mg Diltiazem HCl (Cardizem Cd) 180 mg PO DAILY [facility] Last Admin: 04/11/17 08:33 Dose: 180 mg Home Med (Dutasteride [Avodart]) 0.5 mg PO DAILY [facility] Last Admin: 04/11/17 08:34 Dose: 0.5 mg Home Med (Digoxin [Lanoxin]) 0.125 mg PO DAILY [facility] Last Admin: 04/11/17 08:35 Dose: 0.125 mg Home Med (Patient's Own Medication) 1 unit PO DAILY [facility] Last Admin: 04/11/17 08:35 Dose: 1 unit Home Med (Patient's Own Medication) 1 unit PO DAILY [facility] Last Admin: 04/11/17 08:35 Dose: 1 unit Ipratropium [place] (Atrovent) 0.5 mg IH RBID [facility] Last Admin: 04/11/17 07:31 Dose: 0.5 mg Levalbuterol HCl (Xopenex) 0.63 mg INH RBID [facility] Last Admin: 04/11/17 07:31 Dose: 0.63 mg Metoprolol Tartrate (Lopressor) 50 mg PO Q12 [facility] Last Admin: 04/11/17 08:33 Dose: 50 mg Valproate Sodium (Depakene Oral Soln) 500 mg PO BID [facility] Last Admin: 04/11/17 08:34 Dose: 500 mg Warfarin Sodium (Coumadin) 2.5 mg PO QD5 [facility] PRN Reason: Protocol Stop: 04/11/17 17:01 - Labs Labs: 04/05/17 16:45 PT 24.5 Seconds (9.8-13.1) H 04/11/17 08:00 INR 2.1 (0.9-1.2) H 04/11/17 08:00 - Constitutional Appears: No Acute Distress - Head Exam Head Exam: NORMAL INSPECTION - Eye Exam Eye Exam: PERRL - ENT Exam ENT Exam: Normal Oropharynx - Neck Exam Neck Exam: Normal Inspection - Respiratory Exam Respiratory Exam: Decreased Breath Sounds (at bases) - Cardiovascular Exam Cardiovascular Exam: Irregular Rhythm - GI/Abdominal Exam GI & Abdominal Exam: Soft, Normal Bowel Sounds - Extremities Exam Additional comments: Legs edema - Neurological Exam Neurological Exam: Awake Additional comments: Forgetful, generalized weakness, more prominent L/E. - Psychiatric Exam Psychiatric exam: Normal Mood - Skin Skin Exam: Warm Assessment and Plan (1) Leg weakness Status: Acute (2) Coumadin toxicity Status: Deleted (3) Acute on chronic diastolic CHF (congestive heart failure) Status: Deleted (4) A-fib Status: Deleted (5) HTN (hypertension) Status: Chronic (6) Old cerebrovascular accident (CVA) without late effect Status: Chronic (7) Sleep apnea Status: Chronic (8) Seizure Status: Chronic (9) Seizure Status: Deleted - Assessment and Plan (Free Text) Plan: Dr. Cole consult appreciated, begin Lamictal in AM, F/U Brain MRI.
--- NOTE | 2017-04-11 23:47 | CP.PCM.PN ---
Subjective - Date & Time of Evaluation Date of Evaluation: 04/11/17 Time of Evaluation: 22:00 - Subjective Subjective: Unfortunately Dr Ornelas decided to sign off on this case due to many neurologists involved. He is confining the patient to my care. Patient is off Valproic acid for 24 hours until it clears off the body, he will be started on Po Lamictal in AM at a starting dose of 25 mg Q 12Hrs. This will be increased gradually later on. Observation for any generalized body rash is needed as this might be Erythema Multiform or Alexander Rocky Syndrome, which is a very dangerous skin disease that involves the mucous membranes. The medicine then needs to be D/C ed Patient is going to Rehab and will be under observation there. Dr Escamilla collaboration to treat this patient is very appreciated. Objective - Vital Signs/Intake and Output Vital Signs (last 24 hours): Temp Pulse Resp BP Pulse Ox 96.6 F L 73 20 170/85 H 87 L 04/11/17 20:29 04/11/17 20:29 04/11/17 20:29 04/11/17 20:29 04/11/17 20:29 - Medications Medications: Current Medications Clonidine HCl (Catapres) 0.1 mg PO BID [facility] Last Admin: 04/11/17 17:24 Dose: 0.1 mg Diltiazem HCl (Cardizem Cd) 180 mg PO DAILY [facility] Last Admin: 04/11/17 08:33 Dose: 180 mg Home Med (Dutasteride [Avodart]) 0.5 mg PO DAILY [facility] Last Admin: 04/11/17 08:34 Dose: 0.5 mg Home Med (Digoxin [Lanoxin]) 0.125 mg PO DAILY [facility] Last Admin: 04/11/17 08:35 Dose: 0.125 mg Home Med (Patient's Own Medication) 1 unit PO DAILY [facility] Last Admin: 04/11/17 08:35 Dose: 1 unit Home Med (Patient's Own Medication) 1 unit PO DAILY [facility] Last Admin: 04/11/17 08:35 Dose: 1 unit Ipratropium [place] (Atrovent) 0.5 mg IH RBID [facility] Last Admin: 04/11/17 19:23 Dose: 0.5 mg Lamotrigine (Lamictal) 25 mg PO BID [facility] Levalbuterol HCl (Xopenex) 0.63 mg INH RBID [facility] Last Admin: 04/11/17 19:21 Dose: 0.63 mg Metoprolol Tartrate (Lopressor) 50 mg PO Q12 [facility] Last Admin: 04/11/17 20:29 Dose: 50 mg - Labs Labs: 04/05/17 16:45 PT 24.5 Seconds (9.8-13.1) H 04/11/17 08:00 INR 2.1 (0.9-1.2) H 04/11/17 08:00 Assessment and Plan (1) HTN (hypertension) Status: Chronic (2) Acute on chronic diastolic CHF (congestive heart failure) Status: Acute (3) Altered mental status Status: Acute (4) Atrial fibrillation with RVR Status: Acute (5) Coumadin toxicity Status: Acute (6) Facial laceration Status: Acute (7) Seizure Status: Acute
[2017-04-12] MEDS: LASIX 40 MG PO SCH (08:57)
[2017-04-12] MEDS: Patient's Own Med (Dutasteride [Avodart] 0.5 MG) PO SCH (08:57)
[2017-04-12] MEDS: ENALAPRIL PO SCH (08:57)
[2017-04-12] MEDS: DIGOXIN 0.125 MG PO SCH (08:57)
[2017-04-12] MEDS: diltiaZEM 180 mg/24 Hours CD Cap PO SCH (08:58)
[2017-04-12] MEDS: Levalbuterol 0.63 MG/3 ML Inhal Soln UD INH SCH ×2 (08:58→19:19)
[2017-04-12] MEDS: Ipratropium 0.02% Inhal Soln (0.5 mg/2.5 ml) UD IH SCH ×2 (08:58→19:19)
--- NOTE | 2017-04-12 17:07 | CP.PCM.PN ---
Subjective - Date & Time of Evaluation Date of Evaluation: 04/12/17 Time of Evaluation: 14:50 - Subjective Subjective: F/U Weakness. Pt rsting in bed, no A/D, having PT. Objective - Vital Signs/Intake and Output Vital Signs (last 24 hours): Temp Pulse Resp BP Pulse Ox 96.3 F L 91 H 20 169/78 H 71 L 04/12/17 16:02 04/12/17 16:41 04/12/17 16:02 04/12/17 16:41 04/12/17 16:02 - Medications Medications: Current Medications Clonidine HCl (Catapres) 0.1 mg PO BID [facility] Last Admin: 04/12/17 16:41 Dose: 0.1 mg Diltiazem HCl (Cardizem Cd) 180 mg PO DAILY [facility] Last Admin: 04/12/17 08:58 Dose: 180 mg Home Med (Dutasteride [Avodart]) 0.5 mg PO DAILY [facility] Last Admin: 04/12/17 08:57 Dose: 0.5 mg Home Med (Digoxin [Lanoxin]) 0.125 mg PO DAILY [facility] Last Admin: 04/12/17 08:57 Dose: 0.125 mg Home Med (Patient's Own Medication) 1 unit PO DAILY [facility] Last Admin: 04/12/17 08:57 Dose: 1 unit Home Med (Patient's Own Medication) 1 unit PO DAILY [facility] Last Admin: 04/12/17 08:57 Dose: 1 unit Ipratropium [place] (Atrovent) 0.5 mg IH RBID [facility] Last Admin: 04/12/17 08:58 Dose: 0.5 mg Lamotrigine (Lamictal) 25 mg PO BID [facility] Last Admin: 04/12/17 16:42 Dose: 25 mg Levalbuterol HCl (Xopenex) 0.63 mg INH RBID [facility] Last Admin: 04/12/17 08:58 Dose: 0.63 mg Metoprolol Tartrate (Lopressor) 50 mg PO Q12 [facility] Last Admin: 04/12/17 08:58 Dose: 50 mg - Labs Labs: 04/05/17 16:45 PT 22.0 SECONDS (9.6-11.2) H 04/12/17 06:11 INR 2.12 (0.92-1.08) H 04/12/17 06:11 - Constitutional Appears: No Acute Distress - Head Exam Head Exam: NORMAL INSPECTION - Eye Exam Eye Exam: PERRL - ENT Exam ENT Exam: Normal Oropharynx - Neck Exam Neck Exam: Normal Inspection - Respiratory Exam Respiratory Exam: Decreased Breath Sounds (at bases) - Cardiovascular Exam Cardiovascular Exam: Irregular Rhythm - GI/Abdominal Exam GI & Abdominal Exam: Soft, Normal Bowel Sounds - Extremities Exam Additional comments: Legs edema - Neurological Exam Neurological Exam: Awake Additional comments: Awake, generalized weakness, more prominent L/E - Psychiatric Exam Psychiatric exam: Normal Mood - Skin Skin Exam: Warm Assessment and Plan (1) Leg weakness Status: Acute (2) Coumadin toxicity Status: Deleted (3) Acute on chronic diastolic CHF (congestive heart failure) Status: Deleted (4) A-fib Status: Deleted (5) HTN (hypertension) Status: Chronic (6) Old cerebrovascular accident (CVA) without late effect Status: Chronic (7) Sleep apnea Status: Chronic (8) Seizure Status: Chronic (9) Seizure Status: Deleted - Assessment and Plan (Free Text) Plan: Continue Coumadin, respiratory Tx, BP medications, begins Lamictal, Pt recommended [facility].
--- NOTE | 2017-04-12 23:36 | CP.PCM.PN ---
Subjective - Date & Time of Evaluation Date of Evaluation: 04/12/17 Time of Evaluation: 21:00 - Subjective Subjective: No seizures are seen. He has high systolic BP and normal Diastolic BP. Patient is tolerating well the Lamictal. Patient is leaving the Floor for a Rehab on Saturday04/15/2017 and the and the Patient are interested in staying at the Rehab Facility in [facility]. He is not having any focal weakness and his weakness is generalized. Patient CHF has improved. Objective - Vital Signs/Intake and Output Vital Signs (last 24 hours): Temp Pulse Resp BP Pulse Ox 97.7 F 75 20 175/85 H 97 04/12/17 19:44 04/12/17 20:47 04/12/17 19:44 04/12/17 20:47 04/12/17 19:44 - Medications Medications: Current Medications Clonidine HCl (Catapres) 0.1 mg PO BID [facility] Last Admin: 04/12/17 16:41 Dose: 0.1 mg Diltiazem HCl (Cardizem Cd) 180 mg PO DAILY [facility] Last Admin: 04/12/17 08:58 Dose: 180 mg Home Med (Dutasteride [Avodart]) 0.5 mg PO DAILY [facility] Last Admin: 04/12/17 08:57 Dose: 0.5 mg Home Med (Digoxin [Lanoxin]) 0.125 mg PO DAILY [facility] Last Admin: 04/12/17 08:57 Dose: 0.125 mg Home Med (Patient's Own Medication) 1 unit PO DAILY [facility] Last Admin: 04/12/17 08:57 Dose: 1 unit Home Med (Patient's Own Medication) 1 unit PO DAILY [facility] Last Admin: 04/12/17 08:57 Dose: 1 unit Ipratropium [place] (Atrovent) 0.5 mg IH RBID [facility] Last Admin: 04/12/17 19:19 Dose: 0.5 mg Lamotrigine (Lamictal) 25 mg PO BID [facility] Last Admin: 04/12/17 16:42 Dose: 25 mg Levalbuterol HCl (Xopenex) 0.63 mg INH RBID [facility] Last Admin: 04/12/17 19:19 Dose: 0.63 mg Metoprolol Tartrate (Lopressor) 50 mg PO Q12 [facility] Last Admin: 04/12/17 20:47 Dose: 50 mg - Labs Labs: 04/05/17 16:45 PT 22.0 SECONDS (9.6-11.2) H 04/12/17 06:11 INR 2.12 (0.92-1.08) H 04/12/17 06:11 Assessment and Plan (1) HTN (hypertension) Status: Chronic (2) Altered mental status Status: Acute (3) Atrial fibrillation with RVR Status: Acute (4) Facial laceration Status: Acute (5) Seizure Status: Acute
[2017-04-13] MEDS: Ipratropium 0.02% Inhal Soln (0.5 mg/2.5 ml) UD IH SCH ×3 (07:33→19:22)
[2017-04-13] MEDS: Levalbuterol 0.63 MG/3 ML Inhal Soln UD INH SCH ×3 (07:33→19:22)
[2017-04-13] MEDS: LASIX 40 MG PO SCH (08:51)
[2017-04-13] MEDS: ENALAPRIL PO SCH (08:51)
[2017-04-13] MEDS: DIGOXIN 0.125 MG PO SCH (08:51)
[2017-04-13] MEDS: Patient's Own Med (Dutasteride [Avodart] 0.5 MG) PO SCH (08:51)
[2017-04-13] MEDS: diltiaZEM 180 mg/24 Hours CD Cap PO SCH (08:51)
--- NOTE | 2017-04-13 14:53 | RAD ---
HISTORY: cough COMPARISON: 04/02/2017 FINDINGS: LUNGS: Bilateral hazy opacities. Increased pulmonary vascular congestion. PLEURA: Bilateral layering pleural effusions. CARDIOVASCULAR: Enlarged cardiomediastinal silhouette. OSSEOUS STRUCTURES: The osseous structures demonstrate degenerative changes. VISUALIZED UPPER ABDOMEN: Upper abdomen is suboptimally evaluated. OTHER FINDINGS: None. IMPRESSION: Bilateral moderate-sized pleural effusions with associated compressive atelectasis and/or pneumonia. Increased pulmonary vascular congestion.
--- NOTE | 2017-04-13 15:46 | CP.PCM.PN ---
Subjective - Subjective Subjective: Patient is arousable, answer simple question to his at bedside on CPAP Objective - Vital Signs/Intake and Output Vital Signs (last 24 hours): Temp Pulse Resp BP Pulse Ox 97.2 F L 78 20 188/89 H 92 L 04/13/17 08:13 04/13/17 08:52 04/13/17 08:13 04/13/17 08:52 04/13/17 08:13 - Medications Medications: Current Medications Clonidine HCl (Catapres) 0.1 mg PO TID [facility] Diltiazem HCl (Cardizem Cd) 240 mg PO DAILY [facility] Home Med (Dutasteride [Avodart]) 0.5 mg PO DAILY [facility] Last Admin: 04/13/17 08:51 Dose: 0.5 mg Home Med (Digoxin [Lanoxin]) 0.125 mg PO DAILY [facility] Last Admin: 04/13/17 08:51 Dose: 0.125 mg Home Med (Patient's Own Medication) 1 unit PO DAILY [facility] Last Admin: 04/13/17 08:51 Dose: 1 unit Home Med (Patient's Own Medication) 1 unit PO DAILY [facility] Last Admin: 04/13/17 08:51 Dose: 1 unit Ipratropium [place] (Atrovent) 0.5 mg IH RTID [facility] Last Admin: 04/13/17 14:21 Dose: 0.5 mg Lamotrigine (Lamictal) 25 mg PO BID [facility] Last Admin: 04/13/17 08:52 Dose: 25 mg Levalbuterol HCl (Xopenex) 0.63 mg INH RTID [facility] Last Admin: 04/13/17 14:22 Dose: 0.63 mg Metoprolol Tartrate (Lopressor) 50 mg PO Q12 [facility] Last Admin: 04/13/17 08:52 Dose: 50 mg - Labs Labs: 04/05/17 16:45 PT 27.6 Seconds (9.8-13.1) H 04/13/17 10:00 INR 2.4 (0.9-1.2) H 04/13/17 10:00 - Constitutional Appears: Chronically Ill - Head Exam Head Exam: NORMAL INSPECTION - Eye Exam Eye Exam: PERRL - ENT Exam Additional comments: on CPAP - Neck Exam Neck Exam: Normal Inspection - Respiratory Exam Respiratory Exam: Decreased Breath Sounds (at bases) - Cardiovascular Exam Cardiovascular Exam: Irregular Rhythm - Extremities Exam Extremities Exam: Pedal Edema - Back Exam Back Exam: NORMAL INSPECTION (arousble , generalized weakness , no focal deficit ) Assessment and Plan (1) Leg weakness Status: Acute (2) HTN (hypertension) Status: Chronic (3) Old cerebrovascular accident (CVA) without late effect Status: Chronic (4) Sleep apnea Status: Chronic (5) Seizure Status: Chronic (6) A-fib Status: Chronic - Assessment and Plan (Free Text) Plan: increased BP , adjust BP meds, CPAP , Xopenex , Atrovent , 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
[2017-04-13 15:48] LABS: ABG ALLEN TEST YES; ARTERIAL BLOOD GAS HCO3 35.8 mmol/L (21-28); ARTERIAL BLOOD GAS O2 CONTENT 16.1 ML/dL (15-23); ARTERIAL BLOOD GAS PH 7.49 (7.35-7.45); ARTERIAL BLOOD GAS PO2 60 mm/Hg (80-100); ARTERIAL BLOOD HGB O2 SAT 90.4 % (95.0-98.0); HHB 5.1 % (0.0-5.0); METHEMOGLOBIN 1.5 % (0.0-3.0)
--- NOTE | 2017-04-13 22:59 | CP.PCM.PN ---
Subjective - Date & Time of Evaluation Date of Evaluation: 04/13/17 Time of Evaluation: 21:00 - Subjective Subjective: He has Respiratory difficulties and a CXR was ordered. His ABG is abnormal and Dr Escamilla started him on CPAP most of the time, except when eating. IMPRESSION of Today's CXR: Bilateral moderate-sized pleural effusions with associated compressive atelectasis and/or pneumonia. Increased pulmonary vascular congestion. He has Respiratory difficulties and a CXR was ordered. His ABG is abnormal and Dr Escamilla started him on CPAP most of the time, except when eating. There is no Seizures and his condition is controlled. It is not clear if he will be going to a Rehab facility or he will be receiving medical care first for his Pneumonia. Objective - Vital Signs/Intake and Output Vital Signs (last 24 hours): Temp Pulse Resp BP Pulse Ox 97.9 F 86 20 160/80 H 99 04/13/17 20:38 04/13/17 20:38 04/13/17 20:38 04/13/17 20:38 04/13/17 20:38 - Medications Medications: Current Medications Clonidine HCl (Catapres) 0.1 mg PO TID [facility] Last Admin: 04/13/17 17:05 Dose: 0.1 mg Diltiazem HCl (Cardizem Cd) 240 mg PO DAILY [facility] Home Med (Dutasteride [Avodart]) 0.5 mg PO DAILY [facility] Last Admin: 04/13/17 08:51 Dose: 0.5 mg Home Med (Digoxin [Lanoxin]) 0.125 mg PO DAILY [facility] Last Admin: 04/13/17 08:51 Dose: 0.125 mg Home Med (Patient's Own Medication) 1 unit PO DAILY [facility] Last Admin: 04/13/17 08:51 Dose: 1 unit Home Med (Patient's Own Medication) 1 unit PO DAILY [facility] Last Admin: 04/13/17 08:51 Dose: 1 unit Ipratropium [place] (Atrovent) 0.5 mg IH RTID [facility] Last Admin: 04/13/17 19:22 Dose: 0.5 mg Lamotrigine (Lamictal) 25 mg PO BID [facility] Last Admin: 04/13/17 17:06 Dose: 25 mg Levalbuterol HCl (Xopenex) 0.63 mg INH RTID [facility] Last Admin: 04/13/17 19:22 Dose: 0.63 mg Metoprolol Tartrate (Lopressor) 50 mg PO Q12 [facility] Last Admin: 04/13/17 20:11 Dose: 50 mg - Labs Labs: 04/05/17 16:45 PT 27.6 Seconds (9.8-13.1) H 04/13/17 10:00 INR 2.4 (0.9-1.2) H 04/13/17 10:00 Assessment and Plan (1) HTN (hypertension) Status: Chronic (2) Altered mental status Status: Acute (3) Atrial fibrillation with RVR Status: Acute (4) Facial laceration Status: Acute (5) Seizure Status: Acute
[2017-04-14] MEDS: Levalbuterol 0.63 MG/3 ML Inhal Soln UD INH SCH ×3 (07:07→19:22)
[2017-04-14] MEDS: Ipratropium 0.02% Inhal Soln (0.5 mg/2.5 ml) UD IH SCH ×3 (07:07→19:22)
[2017-04-14 07:58] LABS: ABG ALLEN TEST YES; ARTERIAL BLOOD GAS HCO3 34.8 mmol/L (21-28); ARTERIAL BLOOD GAS O2 CAPACITY 19.2 mL/dL (16-24); ARTERIAL BLOOD GAS O2 CONTENT 17.2 ML/dL (15-23); ARTERIAL BLOOD GAS PO2 53 mm/Hg (80-100); ARTERIAL BLOOD HGB O2 SAT 86.8 % (95.0-98.0); CARBOXYHEMOGLOBIN 2.1 % (0.5-1.5); HHB 9.9 % (0.0-5.0); METHEMOGLOBIN 1.2 % (0.0-3.0)
[2017-04-14] MEDS: diltiaZEM 240 mg/24 Hours CD Cap PO SCH (08:39)
[2017-04-14] MEDS: ENALAPRIL PO SCH (08:39)
[2017-04-14] MEDS: DIGOXIN 0.125 MG PO SCH (08:40)
[2017-04-14] MEDS: Patient's Own Med (Dutasteride [Avodart] 0.5 MG) PO SCH (08:41)
[2017-04-14] MEDS: LASIX 40 MG PO SCH (08:41)
[2017-04-14 09:08] LABS: HEMATOCRIT 43.1 % (35.0-51.0); MEAN CELL VOLUME 93.8 fl (80.0-94.0); MEAN CORPUSCULAR HEMOGLOBIN 30.8 pg (27.0-31.0); MEAN CORPUSCULAR HGB CONC 32.8 g/dL (33.0-37.0); RED CELL DISTRIBUTION WIDTH 15.2 % (11.5-14.5); WHITE BLOOD COUNT 6.3 K/uL (4.8-10.8)
[2017-04-14 09:31] LABS: POTASSIUM 4.1 MMOL/L (3.6-5.0)
--- NOTE | 2017-04-14 15:42 | CP.PCM.PN ---
Subjective - Date & Time of Evaluation Date of Evaluation: 04/14/17 Objective - Vital Signs/Intake and Output Vital Signs (last 24 hours): Temp Pulse Resp BP Pulse Ox 97.7 F 84 20 156/70 H 99 04/14/17 08:18 04/14/17 12:36 04/14/17 08:18 04/14/17 12:36 04/14/17 08:18 - Medications Medications: Current Medications Clonidine HCl (Catapres) 0.1 mg PO TID [facility] Last Admin: 04/14/17 12:36 Dose: 0.1 mg Diltiazem HCl (Cardizem Cd) 240 mg PO DAILY [facility] Last Admin: 04/14/17 08:39 Dose: 240 mg Home Med (Dutasteride [Avodart]) 0.5 mg PO DAILY [facility] Last Admin: 04/14/17 08:41 Dose: 0.5 mg Home Med (Digoxin [Lanoxin]) 0.125 mg PO DAILY [facility] Last Admin: 04/14/17 08:40 Dose: 0.125 mg Home Med (Patient's Own Medication) 1 unit PO DAILY [facility] Last Admin: 04/14/17 08:39 Dose: 1 unit Home Med (Patient's Own Medication) 1 unit PO DAILY [facility] Last Admin: 04/14/17 08:41 Dose: 1 unit Ipratropium [place] [employer] [place] (Atrovent) 0.5 mg IH RTID [facility] Last Admin: 04/14/17 13:14 Dose: 0.5 mg Lamotrigine (Lamictal) 25 mg PO BID [facility] Last Admin: 04/14/17 08:39 Dose: 25 mg Levalbuterol HCl (Xopenex) 0.63 mg INH RTID [facility] Last Admin: 04/14/17 13:13 Dose: 0.63 mg Metoprolol Tartrate (Lopressor) 50 mg PO Q12 [facility] Last Admin: 04/14/17 08:40 Dose: 50 mg - Labs Labs: 04/14/17 05:45 04/14/17 05:45 PT 22.6 Seconds (9.8-13.1) H D 04/14/17 05:45 INR 2.0 (0.9-1.2) H 04/14/17 05:45 Assessment and Plan (1) Leg weakness Status: Acute (2) Coumadin toxicity Status: Deleted (3) Acute on chronic diastolic CHF (congestive heart failure) Status: Deleted (4) A-fib Status: Deleted (5) HTN (hypertension) Status: Chronic (6) Old cerebrovascular accident (CVA) without late effect Status: Chronic (7) Sleep apnea Status: Chronic (8) Seizure Status: Chronic (9) Seizure Status: Deleted
[2017-04-15] MEDS: Levalbuterol 0.63 MG/3 ML Inhal Soln UD INH SCH (07:48)
[2017-04-15] MEDS: Ipratropium 0.02% Inhal Soln (0.5 mg/2.5 ml) UD IH SCH (07:49)
[2017-04-15 08:10] VITALS: PULSE 92; RESP 18; TEMP 97.7; O2SAT 90
[2017-04-15] MEDS ORDERED: Albuterol 0.083% Inhal Sol (2.5 mg/3 mL) UD ONE (08:35)
[2017-04-15] MEDS ORDERED: Albuterol 0.083% Inhal Sol (2.5 mg/3 mL) UD INH STA (08:39)
[2017-04-15 08:57] LABS: ABG ALLEN TEST YES; ARTERIAL BLOOD GAS HCO3 32.2 mmol/L (21-28); ARTERIAL BLOOD GAS O2 CONTENT 17.9 ML/dL (15-23); ARTERIAL BLOOD GAS PH 7.33 (7.35-7.45); ARTERIAL BLOOD GAS PO2 74 mm/Hg (80-100); HHB 5.7 % (0.0-5.0); METHEMOGLOBIN 1.3 % (0.0-3.0)
[2017-04-15 08:59] LABS: BASO % 0.6 % (0.0-2.0); HEMATOCRIT 40.5 % (35.0-51.0); LYMPH # 0.5 K/uL (1.0-4.3); LYMPH % 8.2 % (20.0-40.0); MEAN CELL VOLUME 94.5 fl (80.0-94.0); MEAN CORPUSCULAR HEMOGLOBIN 30.6 pg (27.0-31.0); MEAN CORPUSCULAR HGB CONC 32.4 g/dL (33.0-37.0); MEAN PLATELET VOLUME 7.8 fl (7.2-11.7); MONO # 1.5 K/uL (0.0-0.8); MONO % 27.1 % (0.0-10.0); NEUT # 3.6 K/uL (1.8-7.0); NEUT % 64.1 % (50.0-75.0); NRBC % 0.1 % (0.0-0.0); PLATELET COUNT 264 K/uL (130-400); RED CELL DISTRIBUTION WIDTH 15.1 % (11.5-14.5); WHITE BLOOD COUNT 5.6 K/uL (4.8-10.8)
[2017-04-15 09:07] VITALS: BP 167/80
[2017-04-15 09:13] LABS: BILIRUBIN,TOTAL 0.8 mg/dl (0.2-1.3); POTASSIUM 4.6 MMOL/L (3.6-5.0); TOTAL PROTEIN 7.3 G/DL (6.3-8.2)
[2017-04-15 09:24] LABS: TROPONIN I 0.061 ng/mL (0.00-0.120)
[2017-04-15 09:25] LABS: PARTIAL THROMBOPLASTIN TIME 32.1 Seconds (25.6-37.1)
[2017-04-15] MEDS: LASIX 40 MG PO SCH (09:32)
[2017-04-15] MEDS: ENALAPRIL PO SCH (09:32)
[2017-04-15] MEDS: DIGOXIN 0.125 MG PO SCH (09:32)
[2017-04-15] MEDS: diltiaZEM 240 mg/24 Hours CD Cap PO SCH (09:32)
[2017-04-15] MEDS: Patient's Own Med (Dutasteride [Avodart] 0.5 MG) PO SCH (09:32)
[2017-04-15 11:33] LABS: METAMYELOCYTE 1 % (0-0); NEUTROPHIL 55 % (42-75); TOTAL CELLS COUNTED 100
--- NOTE | 2017-04-15 12:44 | RAD ---
HISTORY: dyspnea COMPARISON: Comparison chest dated 04/13/2017 FINDINGS: LUNGS: Mild central pulmonary vascular congestive changes with bilateral lower lobe alveolar-type infiltrates and bilateral effusions. Changes may have improved slightly since prior study PLEURA: No significant pleural effusion identified, no pneumothorax apparent. CARDIOVASCULAR: Cardiomegaly. OSSEOUS STRUCTURES: No significant abnormalities. VISUALIZED UPPER ABDOMEN: Normal. OTHER FINDINGS: None. IMPRESSION: Mild central pulmonary vascular congestive changes with bilateral lower lobe alveolar-type infiltrates and bilateral effusions. Changes may have improved slightly since prior study
--- NOTE | 2017-04-16 16:49 | CARD ---
APPROVED REPORT EKG Measurement Heart [id number] <Conclusion> Atrial fibrillation Left axis deviation Right bundle branch block Abnormal ECG
--- NOTE | 2017-04-16 16:49 | CARD ---
APPROVED REPORT EKG Measurement Heart [id number] <Conclusion> Atrial fibrillation Left axis deviation Right bundle branch block Abnormal ECG
== END 2017-04-15 09:00 | disposition home or self-care (01) | DRG 945 ==
LOC: H.TCU 21:23
PROVIDERS: ADMIT Internal Medicine Pulmonary Disease; ATTEND Internal Medicine Pulmonary Disease
PROC: F08Z4ZZ Home Management Treatment (ICD-10-PCS; principal; 2017-04-03)
PROC: F07K6ZZ Therapeutic Exercise Treatment of Musculoskeletal System - Upper Back / Upper Extremity (ICD-10-PCS; 2017-04-03)
PROC: F07Z9FZ Gait Training/Functional Ambulation Treatment using Assistive, Adaptive, Supportive or Protective Equipment (ICD-10-PCS; 2017-04-03)
PROC: F08Z1ZZ Dressing Techniques Treatment (ICD-10-PCS; 2017-04-03)
DX: R53.1 Weakness (principal); J18.9 Pneumonia, unspecified organism; I11.0 Hypertensive heart disease with heart failure; G40.209 Localization-related (focal) (partial) symptomatic epilepsy and epileptic syndromes with complex partial seizures, not intractable, without status epilepticus; I50.32 Chronic diastolic (congestive) heart failure; F01.50 Vascular dementia, unspecified severity, without behavioral disturbance, psychotic disturbance, mood disturbance, and anxiety; I48.2 Chronic atrial fibrillation; G47.30 Sleep apnea, unspecified; Z86.73 Personal history of transient ischemic attack (TIA), and cerebral infarction without residual deficits; N40.0 Benign prostatic hyperplasia without lower urinary tract symptoms; Z79.01 Long term (current) use of anticoagulants

== ENCOUNTER 2017-04-15 09:10 | Inpatient (IN) | payer MEDICARE ==
[2017-04-15] MEDS ORDERED: Albuterol-Ipratrop 3 mg / 0.5 (3 ml) UD ONE (09:46)
--- NOTE | 2017-04-15 09:51 | ED PDOC ---
HPI: General Adult Time Seen by Provider: 04/15/17 09:20 Chief Complaint (Nursing): Altered Mental Status Chief Complaint (Provider): shortness of breath History Per: Family (), Other (old charts, nursing report) History/Exam Limitations: clinical condition Additional Complaint(s): 76yo male is brought down from transitional care unit due to shortness of breath , low O2 saturation and reported lethargy. Per patient had cough with sputum last night. Per patient has not been intubated in the past. HPI/ROS Limitation: is poor historian. PMD: [place] Past Medical History Reviewed: Historical Data, Nursing Documentation, Vital Signs Vital Signs: Last Vital Signs Temp 99.2 F 04/15/17 12:26 Pulse 101 H 04/15/17 09:10 Resp 25 H 04/15/17 09:10 BP 164/75 H 04/15/17 09:10 Pulse Ox 100 04/15/17 10:19 - Medical History PMH: Atrial Fibrillation, CHF, CVA, HTN, Sleep Apnea Denies: HIV, Chronic Kidney Disease - Surgical History Surgical History: No Surg Hx - Family History Family History: States: Unknown Family Hx - Living Arrangements Living Arrangements: With Family - Home Medications Home Medications: Ambulatory Orders Medication Instructions Recorded Digoxin [Lanoxin] 0.125 mg PO DAILY 12/14/16 Dutasteride [Avodart] 0.5 mg PO DAILY 12/14/16 Enalapril Maleate [Vasotec] 10 mg PO DAILY 12/14/16 Furosemide [Lasix] 40 mg PO DAILY 12/14/16 Warfarin [Coumadin] 2.5 mg PO QPM 01/03/17 Ipratropium 0.02% [Atrovent] 0.5 mg IH TID 04/15/17 Levalbuterol [Xopenex] 0.63 mg IH TID 04/15/17 Metoprolol Tartrate [Lopressor] 50 mg PO Q12H 04/15/17 cloNIDine [Catapres] 0.1 mg PO TID 04/15/17 diltiaZEM CD [Cardizem CD] 240 mg PO DAILY 04/15/17 lamoTRIgine [Lamictal] 25 mg PO BID 04/15/17 - Allergies Allergies/Adverse Reactions: Allergies Allergy/AdvReac Type Severity Reaction Status Date / Time seafoods Allergy SWELLING Uncoded 04/15/17 10:02 Review of Systems Review Of Systems: ROS cannot be obtained secondary to pt's inabilty to answer questions. Physical Exam - Reviewed Nursing Documentation Reviewed: Yes Vital Signs Reviewed: Yes - Physical Exam Head Exam: Positive for: ATRAUMATIC, NORMAL INSPECTION, NORMOCEPHALIC Skin: Positive for: Warm, Dry Cardiovascular/Chest: Positive for: Tachycardia, Irregularly Irregular Respiratory: Positive for: Crackles (bilateral, audible), Wheezing (audible), Respiratory Distress (moderate), Other (audible congestion) - Laboratory Results Result Diagrams: 04/15/17 10:20 04/15/17 10:20 - ECG Interpretation Of ECG: A fib @ 88, LAD, RBBB. - Radiology X-Ray: Read By Radiologist (Diffuse bilateral airspace disease likely representing pulmonary edema/ CHF with suspected large layering effusions. There may also be mild bilateral lower lobe alveolar-type infiltrates. The ETT of the thoracic inlet and therefore must be advanced. ) - Core Measure Core Measure Indicators: Pneumonia - Critical Care Total Time (In Min): 60 Documented Critical Care: Time excludes all time spent performint seperately billable procedures Medical Decision Making Medical Decision Makin respiratory paged for bipap. ABG shock panel, labs, blood culture, duoneb, CXR, swallow screen ordered. 0958 now states she was present with patient overnight and she thinks he was "gurgling" overnight. also states she fed patient breakfast this morning and he did not choke. states symptoms began after patient ate breakfast this morning. 1000 digoxin level ordered. 1.25mg enalapril IV ordered. 1011: O2 saturation in the 60s with worsening of respiratory distress. Intubation required. see procedure note. 1020: central line placement. see procedure note. 1022 Dr. Madera (ED) discussed the case with patient's . 1050: RN May discussed case with Dr. Escamilla who gave ICU order. RN May also discussed case with Dr. Ken Dela Cruz Cardiology. [address] Escamilla who at the bedside. [address] Buckner ICU who accepts patient. Procedures - Intubation Intubation Method: orotracheal Tube Size (cm): 7.5 Breath Sounds after Intubation: equal Intubation Complications: no complications Post Intubation Xray: Yes Disposition - Clinical Impression Clinical Impression: Acute decompensated heart failure, Aspiration pneumonia - Patient ED Disposition Is Patient to be Admitted: Yes - Disposition Disposition Time: 11:51 Condition: CRITICAL - Pt Status Changed To: Hospital Disposition Of: Inpatient - Admit Certification Admit to Inpatient:: After my assessment, the patient will require hospitalization for at least two midnights. This is because of the severity of symptoms shown, intensity of services needed, and/or the medical risk in this patient being treated as an outpatient. - POA Present On Arrival: None Additional Comments - Additional Comments Additional Comments: Scribe Attestation: Documented by Scooter Mittal acting as a scribe for Micaela Bonilla MD. Provider Scribe Attestation: All medical record entries made by the Scribe were at my direction and personally dictated by me. I have reviewed the chart and agree that the record accurately reflects my personal performance of the history, physical exam, medical decision making, and the department course for this patient. I have also personally directed, reviewed, and agree with the discharge instructions and disposition. Central Line Placement - Central Line Placement Indication: Unable To Obtain Adequate Peripheral Access Central Line Placement: Left: Femoral The Area Was Thoroughly Prepared With: Chlorhexidine, Draped Using Sterile Technique Area Was Locally Anesthetized With: Lidocaine 2% Procedure: Triple Lumen, Placed Using Standard Seldinger Technique, Sterile Dressing Placed Over Line
[2017-04-15] MEDS ORDERED: EnalaprilAT 1.25 mg/ml Inj ONE (09:55)
[2017-04-15] MEDS ORDERED: Albuterol-Ipratrop 3 mg / 0.5 (3 ml) UD INH STA (09:55)
[2017-04-15] MEDS ORDERED: EnalaprilAT 1.25 mg/ml Inj IVP STA (10:00)
[2017-04-15] MEDS ORDERED: Nitroglycerin 2% 15 INCH/30 GM TUBE TOP STA (10:00)
[2017-04-15] MEDS ORDERED: Etomidate 20 mg/10ml Inj IV ONE (10:07)
[2017-04-15] MEDS ORDERED: Propofol 10 mg/ml 1,000 MG/100 ML VIAL ONE (10:10)
[2017-04-15] MEDS ORDERED: Sodium Chloride 0.9% 1,000 ML IV STA (10:19)
[2017-04-15 10:38] LABS: BASO % 0.2 % (0.0-2.0); LYMPH # 0.6 K/uL (1.0-4.3); LYMPH % 9.8 % (20.0-40.0); MEAN CELL VOLUME 94.1 fl (80.0-94.0); MEAN CORPUSCULAR HEMOGLOBIN 31.1 pg (27.0-31.0); MEAN CORPUSCULAR HGB CONC 33.1 g/dL (33.0-37.0); MONO # 1.6 K/uL (0.0-0.8); MONO % 26.9 % (0.0-10.0); NEUT # 3.8 K/uL (1.8-7.0); NEUT % 63.1 % (50.0-75.0); NRBC % 0.2 % (0.0-0.0); WHITE BLOOD COUNT 5.9 K/uL (4.8-10.8)
[2017-04-15] MEDS ORDERED: Sodium Chloride 0.9% 300 ML IV STA (10:38)
[2017-04-15 10:41] LABS: ABG ALLEN TEST YES; ARTERIAL BLOOD GAS HCO3 31.8 mmol/L (21-28); ARTERIAL BLOOD GAS PH 7.38 (7.35-7.45); ARTERIAL BLOOD GAS PO2 143 mm/Hg (80-100)
[2017-04-15 10:59] LABS: ALB/GLOB RATIO 0.9 (1.0-2.1); BILIRUBIN,TOTAL 0.8 mg/dl (0.2-1.3); CALCIUM 9.4 mg/dL (8.4-10.2); POTASSIUM 4.5 MMOL/L (3.6-5.0); TOTAL PROTEIN 8.1 G/DL (6.3-8.2)
[2017-04-15] MEDS ORDERED: Piperacillin/Tazobact 4.5 GM in Sodium Chloride 0.9% 100 ML IVPB ONE (11:00)
[2017-04-15 11:11] LABS: TROPONIN I 0.066 ng/mL (0.00-0.120)
[2017-04-15 12:12] LABS: URINE BILIRUBIN NEGATIVE (NEGATIVE); URINE BLOOD SMALL (NEGATIVE); URINE COLOR YELLOW (YELLOW); URINE GLUCOSE (UA) NEG (Normal); URINE KETONE NEGATIVE (NEGATIVE); URINE LEUKOCYTE ESTERASE NEG Leu/uL (Negative); URINE PROTEIN NEGATIVE (NEGATIVE); URINE UROBILINOGEN 0.2-1.0 mg/dL (0.2-1.0); WBC URINE 2 /hpf (0-5)
[2017-04-15] MEDS ORDERED: Propofol 10 mg/ml Inj (20 ML) IVP STA (12:17)
--- NOTE | 2017-04-15 12:51 | RAD ---
HISTORY: Post-intubation COMPARISON: Comparison made with chest radiograph 04/15/2017 FINDINGS: LUNGS: In situ ETT, the tip of which lies above the thoracic inlet. This must be advanced. Findings discussed with the emergency room physician Dr. Bonilla at approximately 12:47 p.m. with written down and read back verification. Diffuse bilateral airspace disease likely representing pulmonary edema/ CHF and suspected large layering effusions. . There may also be large bilateral lower lobe alveolar-type infiltrates PLEURA: No significant pleural effusion identified, no pneumothorax apparent. CARDIOVASCULAR: Cardiomegaly OSSEOUS STRUCTURES: No significant abnormalities. VISUALIZED UPPER ABDOMEN: Normal. OTHER FINDINGS: None. IMPRESSION: Diffuse bilateral airspace disease likely representing pulmonary edema/ CHF with suspected large layering effusions. There may also be mild bilateral lower lobe alveolar-type infiltrates The ETT of the thoracic inlet and therefore must be advanced. Emergency room physician aware as above
[2017-04-15] MEDS ORDERED: Chlorhexidine Gluconate 1 APPL/PKT TP ONE (13:14)
--- NOTE | 2017-04-15 13:45 | RAD ---
HISTORY: Moved ETT COMPARISON: Comparison made made with plain film chest radiograph 04/15/2017 at 1158 hours FINDINGS: LUNGS: In situ ETT the tip of which lies approximately 6.3 cm above apoorva. This should be advanced. Mild pulmonary vascular congestive changes with bilateral layering effusions and possibly mild bilateral lower lobe alveolar-type infiltrates again noted. PLEURA: No significant pleural effusion identified, no pneumothorax apparent. CARDIOVASCULAR: Mild cardiomegaly OSSEOUS STRUCTURES: No significant abnormalities. VISUALIZED UPPER ABDOMEN: Normal. OTHER FINDINGS: None. IMPRESSION: In situ ETT the tip of which lies approximately 6.3 cm above apoorva. This should be advanced. Mild pulmonary vascular congestive changes with bilateral layering effusions and possibly mild bilateral lower lobe alveolar-type infiltrates again noted.
--- NOTE | 2017-04-15 14:21 | PCM.RRTMUL ---
<Belkis Redd - Last Filed: 04/15/17 14:19> CHIROPRACTIC PHYSICIAN Nurse Assessment - Situation CHIROPRACTIC PHYSICIAN Responder Arrival Time:: 08:37 Location:: TCU Room Number:: 713 CHIROPRACTIC PHYSICIAN Reason for Call: O2 Saturation below 90%, Change in Mental Status CHIROPRACTIC PHYSICIAN Called By: RN - IV IV Inserted during CHIROPRACTIC PHYSICIAN?: Yes New IV Insertion Tolerance:: Good - Respiratory Oxygen Delivery Method:: Mask, Venturi Mask (non-rebreather) Received Nebulizer Treatments:: Yes Was the Patient Ventilated with Bag/Mask 100% O2?: No Secretions Suctioned?: Yes (moderate amount of mucus ) Was the Patient Intubated?: No Was the Patient Placed on a Ventilator?: No - Ventilator Settings Mode:: PRVC/AC Ventilator Respiratory Rate Setting:: 16 Ventilator Tidal Volume Setting:: 700 PEEP/CPAP (cm H2O):: 0 SAO2 %:: 96 FIO2 (% Oxygen):: 100 - Medication Medications Administered During CHIROPRACTIC PHYSICIAN :: Lasix 60mg IV stat - Diagnostic Test Ordered EKG:: Yes Chest X-Ray:: Yes - Stat Labs Ordered CHIROPRACTIC PHYSICIAN Stat Labs Ordered:: CBC, PT/PTT, TROPONIN, ABG CHIROPRACTIC PHYSICIAN Other Labs Ordered:: CMP, D-dimer CPR started during CHIROPRACTIC PHYSICIAN?: No - Vital Signs Blood Pressure:: 167/80 Pulse Rate:: 89 Temperature:: 99.2 F Oxygen Saturation:: 83 - Srinivas Coma Scale Coma Scale Eye Opening:: To verbal stimuli Coma Scale Motor:: Movement to pain stimulus Coma Scale Verbal:: Confused/able to answer Coma Scale Total:: 12 - Time CHIROPRACTIC PHYSICIAN Ended Time CHIROPRACTIC PHYSICIAN Ended:: 08:45 - Vital Signs at end of CHIROPRACTIC PHYSICIAN Blood Pressure:: 113/70 Pulse Rate:: 114 O2 Sat by Pulse Oximetry:: 93 - Recommendations 5) CHIROPRACTIC PHYSICIAN Level of Care Recommendations: Discharge to Emergency Room 6) Notifications: Attending Physician I.Reason for CHIROPRACTIC PHYSICIAN - A) Acute Change in Patient: (Select all that apply): Acute change in mental status, Acute change in SpO2 less - A) Initial Vital Signs: Blood Pressure: 167/80 Pulse Rate: 89 O2 Sat by Pulse Oximetry: 83 - B) Neurological Status (Select all that apply): Responsive (to pain), Follows Commands, Lethargic - C) Respiratory Oxygen Delivery Method: Face Mask @% (15L) - Constitutional Appears: Older Than Stated Age (lethargic, follows commands (opens eyes when asked)) - Head Head Exam: ATRAUMATIC, NORMOCEPHALIC - Respiratory Exam Respiratory Exam: Rhonchi (diffuse, gurgling upper respiratory sound on expiration), Respiratory Distress (decreased O2 saturation at 83) - Cardiovascular Exam Cardiovascular Exam: REGULAR RHYTHM, +S1, +S2 - GI/Abdominal Exam GI & Abdominal Exam: Soft, Normal Bowel Sounds. absent: Distended, Tenderness - Neurological Exam Additional exam: lethargic, follows commands (opens eyes when instructed to), responds to painful stimuli - Extremities Exam Extremities Exam: absent: Calf Tenderness Plan - A. End of CHIROPRACTIC PHYSICIAN Vital Signs: Blood Pressure: 113/70 Pulse Rate: 114 O2 Sat by Pulse Oximetry: 93 - B. Assessment of Findings&Treatment Plan 76 yr old M found to be lethargic with decreased O2 saturation to 83%, with PMHx CHF, Seizure d/o, HTN, CVA. Patient was given albuterol inh tx x 1, supplemental O2 via non-rebreather mask, IV inserted, Lasix 60mg IV stat given, pt was suctioned, ABG and labs drawn, stat EKG and CXR. Patient's O2 sat had mild improvement to 95%, patient then had subsequent desaturation to 93% despite supplemental O2 . Patient was discharged to ER for further evaluation and management. <Junie Howard - Last Filed: 04/15/17 14:50> Attending/Attestation - Attestation I have personally seen and examined this patient.: Yes I have fully participated in the care of the patient.: Yes I have reviewed all pertinent clinical information, including history, physical exam and plan: Yes Notes (Text): 04/15/17 14:50 agree with above plan. see and examined with resident.
--- NOTE | 2017-04-15 15:30 | CP.PCM.CON ---
Past Patient History - Infectious Disease Hx of Infectious Diseases: None - Past Medical History & Family History Past Medical History?: Yes - Past Social History Smoking Status: Never Smoked - CARDIAC Hx Atrial Fibrillation: Yes Hx Congestive Heart Failure: Yes Hx Hypertension: Yes - PULMONARY Hx Sleep Apnea: Yes - NEUROLOGICAL Hx Neurological Disorder: Yes HX Cerebrovascular Accident: Yes - HEENT Hx HEENT Problems: No - RENAL Hx Chronic Kidney Disease: No - ENDOCRINE/METABOLIC Hx Endocrine Disorders: No - HEMATOLOGICAL/ONCOLOGICAL Hx Human Immunodeficiency Virus (HIV): No - INTEGUMENTARY Hx Dermatological Problems: No - MUSCULOSKELETAL/RHEUMATOLOGICAL Hx Falls: No - GASTROINTESTINAL Hx Gastrointestinal Disorders: No - GENITOURINARY/GYNECOLOGICAL Hx Genitourinary Disorders: Yes Hx Incontinence: Yes Other/Comment: BPH - PSYCHIATRIC Hx Substance Use: No - SURGICAL HISTORY Hx Surgeries: No - ANESTHESIA Hx Anesthesia: No Meds Allergies/Adverse Reactions: Allergies Allergy/AdvReac Type Severity Reaction Status Date / Time seafoods Allergy SWELLING Uncoded 04/15/17 10:02 - Medications Medications: Current Medications Digoxin (Lanoxin) 0.125 mg PO DAILY [facility] Norepinephrine Bitartrate 4 mg (/ Dextrose) 254 mls @ 30.48 mls/hr IV .Q8H20M YUKI; 8 MCG/MIN PRN Reason: Protocol Last Admin: 04/15/17 10:38 Dose: 8 mcg/min, 30.48 mls/hr Piperacillin Sod/Tazobactam (Sod 3.375 gm/ Sodium Chloride) 100 mls @ 100 mls/ hr IVPB Q6 YUKI Lamotrigine (Lamictal) 25 mg PO BID [facility]UKI Levalbuterol HCl (Xopenex) 0.63 mg INH RQ8 PRN PRN Reason: Shortness of Breath Pantoprazole Sodium (Protonix Inj) 40 mg IVP DAILY [facility] Results - Vital Signs Recent Vital Signs: Last Vital Signs Temp 99.2 F 04/15/17 14:43 Pulse 114 H 04/15/17 14:43 Resp 25 H 04/15/17 09:10 BP 113/70 04/15/17 14:43 Pulse Ox 100 04/15/17 10:19 - Labs Result Diagrams: 04/15/17 10:20 04/15/17 10:20
[2017-04-15 15:42] LABS: ABG ALLEN TEST YES; ABG MECHANICAL RATE 14; ARTERIAL BLOOD GAS HCO3 32.2 mmol/L (21-28); ARTERIAL BLOOD GAS O2 CAPACITY 17.9 mL/dL (16-24); ARTERIAL BLOOD GAS O2 CONTENT 16.7 ML/dL (15-23); ARTERIAL BLOOD GAS PH 7.46 (7.35-7.45); ARTERIAL BLOOD GAS PO2 63 mm/Hg (80-100); ARTERIAL BLOOD HGB O2 SAT 91.3 % (95.0-98.0); ATERIAL BLOOD GAS PEEP 5; CARBOXYHEMOGLOBIN 0.8 % (0.5-1.5); HHB 6.8 % (0.0-5.0); METHEMOGLOBIN 1.1 % (0.0-3.0)
[2017-04-15] MEDS: Piperacillin/Tazobact 3.375 GM in Sodium Chloride 0.9% 100 ML IVPB SCH ×2 (17:51→22:00)
--- NOTE | 2017-04-15 19:16 | DS ---
LOCATION: The patient in ICU, bed 434. TIME SPENT: 45 minutes. HISTORY OF PRESENT ILLNESS: The patient is seen and examined at the bedside. 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 He was seen and evaluated in the Emergency Room, noted to be in respiratory distress, unresponsive, intubated, placed on mechanical ventilation, followed. Post-intubation, patient dropped his blood pressure, was given Lasix. Subsequent improvement in blood pressure. Noted to be hypotensive, started on Levophed, admitted to ICU for further evaluation. ICU consult is requested for the same. PAST MEDICAL HISTORY: Hypertension, coronary artery disease, chronic systolic/ diastolic heart failure, atrial fibrillation, sleep apnea. No history of chronic obstructive pulmonary disease. DISCHARGE MEDICATIONS: The patient has been on clonidine 0.1 mg 3 times a day, digoxin 0.125 mg once daily, Cardizem CD 240 mg once daily, Vasotec 10 mg once daily, Lasix 40 mg daily, metoprolol 50 q. 12 hours, Xopenex 0.63 mg by nebulizer q. 12 hours. ALLERGIES: SEAFOOD. FAMILY HISTORY: Noncontributory. HABITS: No history of smoking or alcohol abuse. PHYSICAL EXAMINATION: GENERAL: Elderly male, orally intubated with a size 7.5 endotracheal tube. Post-procedure chest x-ray showed high placement of the endotracheal tube, which was repositioned. VITAL SIGNS: Temperature 99.2, heart rate 114 , blood pressure 113/70 on Levophed at 5 mcg per minute, saturating 83%, currently on AC/PRVC rate of 16, tidal volume 370, FiO2 100%, saturating 96%. Peak airway pressure of 32, mean airway pressure 9. HEENT: Pupils reactive. Conjunctivae pink. Sclerae white. NECK: Supple. Endotracheal tube in place. No secretion noted. No carotid bruit. LUNGS: Bilateral breath sounds. Expiration prolonged. Fine crepitations at the bases. HEART: Rhythm irregular. ABDOMEN: Bowel sounds present. Soft. Liver, spleen not palpable. Bladder not distended. EXTREMITIES: Chronic skin changes. Dorsalis pedis palpable and symmetric, reduced in intensity. NEUROLOGIC: Under the effect of propofol, received for endotracheal tube intubation. LABORATORY DATA: WBC 5.9, hemoglobin 14.2, hematocrit 43, platelet count 370, neutrophils 63, lymphocytes 9.8, monocytes 26.9. PT 25, INR 2.2, PTT 34. ABG: A pH of 7.38, pCO2 61, pO2 143 on FiO2 100% preintubation. Lactate level 1.9. SMA-7: Sodium 144, potassium 4.5, chloride 96, CO2 36, anion gap of 17, blood urea nitrogen 53, creatinine 2.3, random glucose 178, calcium 9.4, total bilirubin 0.8, AST 23, ALT 23, alkaline phosphatase 125. Troponin 0.06. ProBNP , total protein 8.1, albumin 3.9. Urinalysis, urine microscopic: WBC 2. Urine leukocyte esterase negative. Urine urobilinogen 0.221. Digoxin level 1.5. Chest x-ray: Endotracheal tube 6.3 cm above the apoorva, which is repositioned. Diffuse bilateral airspace opacities likely representing pulmonary edema/CHF and suspected large layering effusion, cardiomegaly. EKG shows atrial fibrillation, nonspecific ST-T changes. IMPRESSION: 1. Hypercapneic hypoxic respiratory failure secondary to chronic diastolic/ systolic heart failure with pulmonary vascular congestion, pulmonary edema. 2. Obstructive sleep apnea. 3. Bilateral pleural effusion. 4. Acute on chronic renal failure. 5. Hypertension with hypertensive cardiovascular disease. 6. History of seizure on Lamictal 25 mg b.i.d. PLAN: Continue ventilatory support until able to extubate. Gentle hydration to improve renal function. Continue digoxin 0.125 mg daily, clonidine 0.1 mg 3 times daily, Cardizem CD 240 mg p.o. daily, Avodart 0.5 mg once daily, hold Vasotec, metoprolol 50 mg q. 12 hours, Xopenex 0.63 mg 3 times daily, Protonix 40 IV daily, Lamictal 25 mg b.i.d. Clive Buckner MD cc: 170 TT: 04/15/2017 19:16:31 ln MTDD
[2017-04-15] MEDS: Levalbuterol 0.63 MG/3 ML Inhal Soln UD INH PRN ×2 (19:31→19:36)
--- NOTE | 2017-04-15 19:58 | CP.PCM.HP ---
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 PMHx: A Fib with RVR on Coumadin, CAD, Old CVA, Chronic systolic/diastolic CHF, HTN, SUSAN, BPH, PNA. No Hx of COPD/Asthma. CXR showed: Mild pulmonary congestive changes with b/l effusions, possibly mild b/l lower lobe infiltrates. Present on Admission - Present on Admission Any Indicators Present on Admission: No Review of Systems - Review of Systems Systems not reviewed;Unavailable: Acuity of Condition, Intubated Past Patient History - Infectious Disease Hx of Infectious Diseases: None - Past Medical History & Family History Past Medical History?: Yes Pertinent Family History: Unknown. - Past Social History Smoking Status: Never Smoked Alcohol: None Drugs: Denies Home Situation {Lives}: With Family - CARDIAC Hx Cardiac Disorders: Yes Hx Atrial Fibrillation: Yes Hx Congestive Heart Failure: Yes Hx Hypertension: Yes Hx Peripheral Edema: Yes - PULMONARY Hx Respiratory Disorders: Yes Hx Sleep Apnea: Yes - NEUROLOGICAL Hx Neurological Disorder: Yes HX Cerebrovascular Accident: Yes ( denies) Hx Seizures: Yes Hx Syncope: Yes Hx Transient Ischemic Attacks (TIA): Yes - HEENT Hx HEENT Problems: No - RENAL Hx Chronic Kidney Disease: No - ENDOCRINE/METABOLIC Hx Endocrine Disorders: No - HEMATOLOGICAL/ONCOLOGICAL Hx Blood Disorders: No Hx Human Immunodeficiency Virus (HIV): No - INTEGUMENTARY Hx Dermatological Problems: No - MUSCULOSKELETAL/RHEUMATOLOGICAL Hx Musculoskeletal Disorders: Yes Hx Falls: Yes Hx Unsteady Gait: Yes - GASTROINTESTINAL Hx Gastrointestinal Disorders: No - GENITOURINARY/GYNECOLOGICAL Hx Genitourinary Disorders: Yes Hx Incontinence: Yes Hx Prostate Problems: Yes (BPH) - PSYCHIATRIC Hx Psychophysiologic Disorder: Yes Hx Hallucinations: Yes Hx Substance Use: No - SURGICAL HISTORY Hx Surgeries: No - ANESTHESIA Hx Anesthesia: No Meds Allergies/Adverse Reactions: Allergies Allergy/AdvReac Type Severity Reaction Status Date / Time EGG AdvReac HEADACHE Verified 04/15/17 15:49 seafoods Allergy SWELLING Uncoded 04/15/17 10:02 Physical Exam - Constitutional Appears: Chronically Ill - Head Exam Head Exam: NORMAL INSPECTION - Eye Exam Additional comments: reactive to light - ENT Exam Additional comments: Intubated - Neck Exam Neck exam: Positive for: Normal Inspection - Respiratory Exam Respiratory Exam: Decreased Breath Sounds (at bases), Rhonchi (b/l) Additional comments: Crackles at bases - Cardiovascular Exam Cardiovascular Exam: Irregular Rhythm - GI/Abdominal Exam GI & Abdominal Exam: Normal Bowel Sounds, Soft - Extremities Exam Additional comments: Legs edema - Back Exam Back exam: NORMAL INSPECTION - Neurological Exam Additional comments: intubated, follows commands to squeeze my hands, movements tactile stimuli. - Psychiatric Exam Additional comments: intubated - Skin Skin Exam: Warm Results - Vital Signs Recent Vital Signs: Last Vital Signs Temp 100.2 F H 04/15/17 16:00 Pulse 103 H 04/15/17 19:32 Resp 18 04/15/17 19:00 BP 131/61 04/15/17 19:00 Pulse Ox 98 04/15/17 19:00 reviewed J.P. - Labs Result Diagrams: 04/17/17 04:10 04/17/17 04:10 Labs: Laboratory Results - last 24 hr 04/15/17 15:28 pCO2 49 H pO2 63 L HCO3 32.2 H ABG pH 7.46 H ABG Total CO2 36.3 H ABG O2 Saturation 93.1 L ABG O2 Content 16.7 ABG Base Excess 9.5 H ABG Hemoglobin 13.0 ABG Carboxyhemoglobin 0.8 POC ABG HHb (Measured) 6.8 H ABG Methemoglobin 1.1 ABG O2 Capacity 17.9 Broderick Test Yes A-a O2 Difference 304.0 Hgb O2 Saturation 91.3 L Mechanical Rate 14 FiO2 60.0 Tidal Volume 600 PEEP 5 reviewed J.P. - Imaging and Cardiology Chest x-ray Status: Report reviewed by me (KenPEmily) Assessment & Plan (1) Acute respiratory failure Status: Acute Priority: High (2) Pleural effusion, bilateral Status: Acute Priority: High (3) Acute on chronic diastolic (congestive) heart failure Status: Acute Priority: High (4) CANDELARIA (acute kidney injury) Status: Acute Priority: High (5) Aspiration pneumonia Status: Deleted Comment: Possible (6) HTN (hypertension) Status: Chronic Priority: High (7) A-fib Status: Chronic Priority: High (8) Sleep apnea Status: Chronic - Assessment and Plan (Free Text) Plan: F/U Sputum C-S, Blood C-S, Continue Zosyn IV, Xopenex, and rest of Tx. Continue Ventilatory support, F/U Renal consult. ICU time: 60 minutes. - Date & Time Date: 04/15/17 Time: 15:00
[2017-04-15] MEDS ORDERED: Sodium Chloride 3% for Inhalation 4 ML VIAL.NEB IH PRN (20:00)
[2017-04-15] MEDS: Metoprolol Succinate 50 mg XL Tab PO SCH (21:18)
[2017-04-16] MEDS: Piperacillin/Tazobact 3.375 GM in Sodium Chloride 0.9% 100 ML IVPB SCH ×4 (04:00→21:51)
[2017-04-16 05:56] LABS: ABG ALLEN TEST YES; ABG MECHANICAL RATE 14; ARTERIAL BLOOD GAS HCO3 32.9 mmol/L (21-28); ARTERIAL BLOOD GAS MODE PRVC AC; ARTERIAL BLOOD GAS O2 CAPACITY 15.3 mL/dL (16-24); ARTERIAL BLOOD GAS O2 CONTENT 14.8 ML/dL (15-23); ARTERIAL BLOOD GAS PH 7.48 (7.35-7.45); ARTERIAL BLOOD GAS PO2 83 mm/Hg (80-100); ARTERIAL BLOOD HGB O2 SAT 95.3 % (95.0-98.0); ATERIAL BLOOD GAS PEEP 5; CARBOXYHEMOGLOBIN 0.4 % (0.5-1.5); HHB 3.1 % (0.0-5.0); METHEMOGLOBIN 1.2 % (0.0-3.0)
--- NOTE | 2017-04-16 08:16 | CP.PCM.CON ---
History of Present Illness - History of Present Illness History of Present Illness: Full Note Dictated Ventilatory Failure Pneumonia/Bilat Pleural effusions CHF (LV,Diastolic,Ac on Chr) A Fib Seizure disorder Needs IV digoxin to slow down HR Vent support ?need for pleural tap Monitor and manage INR/Warfarin dose Past Patient History - Infectious Disease Hx of Infectious Diseases: None - Past Medical History & Family History Past Medical History?: Yes - Past Social History Smoking Status: Never Smoked Alcohol: None Drugs: Denies Home Situation {Lives}: With Family - CARDIAC Hx Cardiac Disorders: Yes Hx Atrial Fibrillation: Yes Hx Congestive Heart Failure: Yes Hx Hypertension: Yes Hx Peripheral Edema: Yes - PULMONARY Hx Respiratory Disorders: Yes Hx Sleep Apnea: Yes - NEUROLOGICAL Hx Neurological Disorder: Yes HX Cerebrovascular Accident: Yes ( denies) Hx Seizures: Yes Hx Syncope: Yes Hx Transient Ischemic Attacks (TIA): Yes - HEENT Hx HEENT Problems: No - RENAL Hx Chronic Kidney Disease: No - ENDOCRINE/METABOLIC Hx Endocrine Disorders: No - HEMATOLOGICAL/ONCOLOGICAL Hx Blood Disorders: No Hx Human Immunodeficiency Virus (HIV): No - INTEGUMENTARY Hx Dermatological Problems: No - MUSCULOSKELETAL/RHEUMATOLOGICAL Hx Musculoskeletal Disorders: Yes Hx Falls: Yes Hx Unsteady Gait: Yes - GASTROINTESTINAL Hx Gastrointestinal Disorders: No - GENITOURINARY/GYNECOLOGICAL Hx Genitourinary Disorders: Yes Hx Incontinence: Yes Hx Prostate Problems: Yes (BPH) - PSYCHIATRIC Hx Psychophysiologic Disorder: Yes Hx Hallucinations: Yes Hx Substance Use: No - SURGICAL HISTORY Hx Surgeries: No - ANESTHESIA Hx Anesthesia: No Meds Allergies/Adverse Reactions: Allergies Allergy/AdvReac Type Severity Reaction Status Date / Time EGG AdvReac HEADACHE Verified 04/15/17 15:49 seafoods Allergy SWELLING Uncoded 04/15/17 10:02 - Medications Medications: Current Medications Clonidine HCl (Catapres) 0.1 mg PO TID [facility] Last Admin: 04/15/17 17:43 Dose: Not Given Digoxin (Lanoxin) 0.125 mg PO DAILY [facility] Digoxin (Lanoxin) 0.25 mg IVP ONCE ONE Stop: 04/16/17 09:01 Diltiazem HCl (Cardizem) 60 mg PO Q6 [facility] Last Admin: 04/16/17 04:00 Dose: 60 mg Finasteride (Proscar) 5 mg PO DAILY [facility] Last Admin: 04/15/17 17:48 Dose: Not Given Furosemide (Lasix) 20 mg IVP BID [facility] Last Admin: 04/15/17 18:01 Dose: 20 mg Norepinephrine Bitartrate 4 mg (/ Dextrose) 254 mls @ 30.48 mls/hr IV .Q8H20M YUKI; 8 MCG/MIN PRN Reason: Protocol Last Titration: 04/15/17 13:45 Dose: 0 mcg/min, 0 mls/hr Piperacillin Sod/Tazobactam (Sod 3.375 gm/ Sodium Chloride) 100 mls @ 100 mls/ hr IVPB Q6 YUKI Last Admin: 04/16/17 04:00 Dose: 100 mls/hr Lamotrigine (Lamictal) 25 mg PO BID [facility] Last Admin: 04/15/17 17:47 Dose: Not Given Levalbuterol HCl (Xopenex) 0.63 mg INH RQ8 PRN PRN Reason: Shortness of Breath Last Admin: 04/15/17 19:36 Dose: 0.63 mg Lorazepam (Ativan) 1 mg IVP ONCE PRN PRN Reason: Agitation Last Admin: 04/15/17 23:05 Dose: 1 mg Lorazepam (Ativan) 2 mg IVP Q6 PRN PRN Reason: agitation, restlessness on cate Last Admin: 04/16/17 07:53 Dose: 2 mg Metoprolol Succinate (Toprol Xl) 50 mg PO Q12 [facility] Last Admin: 04/15/17 21:18 Dose: Not Given Pantoprazole Sodium (Protonix Inj) 40 mg IVP DAILY [facility] Last Admin: 04/15/17 18:01 Dose: 40 mg Results - Vital Signs Recent Vital Signs: Last Vital Signs Temp 99.4 F 04/16/17 04:00 Pulse 100 H 04/16/17 06:00 Resp 14 04/16/17 06:00 BP 113/67 04/16/17 06:00 Pulse Ox 100 04/16/17 06:00 - Labs Result Diagrams: 04/15/17 10:20 04/15/17 10:20 Labs: Laboratory Results - last 24 hr 04/15/17 04/15/17 04/15/17 15:28 20:02 20:10 pCO2 49 H pO2 63 L HCO3 32.2 H ABG pH 7.46 H ABG Total CO2 36.3 H ABG O2 Saturation 93.1 L ABG O2 Content 16.7 ABG Base Excess 9.5 H ABG Hemoglobin 13.0 ABG Carboxyhemoglobin 0.8 POC ABG HHb (Measured) 6.8 H ABG Methemoglobin 1.1 ABG O2 Capacity 17.9 Broderick Test Yes A-a O2 Difference 304.0 Hgb O2 Saturation 91.3 L Vent Mode Mechanical Rate 14 FiO2 60.0 Tidal Volume 600 PEEP 5 Ur Random Creatinine 61.8 Ur Random Sodium 37 Ur Random Potassium 43.1 04/16/17 05:52 pCO2 47 H pO2 83 HCO3 32.9 H ABG pH 7.48 H ABG Total CO2 36.4 H ABG O2 Saturation 96.8 ABG O2 Content 14.8 L ABG Base Excess 10.2 H ABG Hemoglobin 11.0 L ABG Carboxyhemoglobin 0.4 L POC ABG HHb (Measured) 3.1 ABG Methemoglobin 1.2 ABG O2 Capacity 15.3 L Broderick Test Yes A-a O2 Difference 286.0 Hgb O2 Saturation 95.3 Vent Mode Prvc ac Mechanical Rate 14 FiO2 60.0 Tidal Volume 600 PEEP 5 Ur Random Creatinine Ur Random Sodium Ur Random Potassium
[2017-04-16] MEDS ORDERED: Digoxin 500 mcg/2ml (0.5 mg/2ml) Inj IVP ONE (09:00)
--- NOTE | 2017-04-16 09:16 | CON ---
DATE: 04/16/2017 He is hospitalized under Dr. Escamilla's care. HISTORY OF PRESENT ILLNESS: This 76-year-old man is well known to me because of his recent hospitalization. He has had multiple hospitalizations here at this institution over the last 3-4 months. 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 The patient has a long history of hypertension and congestive cardiac failure as a consequence of chronic atrial fibrillation, which was being managed with a diuretic as well as rate control using digoxin, metoprolol and Cardizem, and he was anticoagulated with Coumadin. The patient had a seizure disorder for which he was on Keppra and was recently hospitalized with Keppra toxicity requiring gradual withdrawal of Keppra. The patient's hallucination and confusion and disorientation rapidly resolved, and the patient was in transitional care unit when he gradually began to develop a cough, which was productive cough, had severe hypoxia and was finally transferred to the Emergency Room from where he required endotracheal intubation. He is now in intensive care unit and supported by a ventilator, sedated with propofol. PHYSICAL EXAMINATION: VITAL SIGNS: Shows an elderly man who has atrial fibrillation with heart rate mostly between 120 and 130 beats per minute, with a blood pressure of 100/70 mmHg. OUTPUT: Has had excellent urine output following a dose of Lasix in the Emergency Room. Had put out approximately 1500 mL of urine in the preceding 12 hours, and within the last 2 hours he has had approximately 80 mL of urine. His extremities are warm. His nailbeds are pink. There was no central or peripheral cyanosis. There was no clubbing. NECK: His jugular venous pressure was not elevated. EXTREMITIES: There was mild pitting edema over both lower extremities. HEART: His apex was not palpable. The first and second heart sounds were distant but normal. A brief apical systolic murmur was audible. There was no S3 gallop. LUNGS: Air entry was poor at both bases. DIAGNOSTIC DATA: His electrocardiogram showed atrial fibrillation with a pattern of left bundle branch block, seen on earlier electrocardiograms as well. Blood gases on arrival in the Emergency Room yesterday showed that in spite of an FIO2 of 100%, he had a pCO2 of 61 mmHg and pO2 of 143 mmHg. This morning, he has an FIO2 of 60% with a pO2 of 83 mmHg and pCO2 of 47 mmHg. His pH was 7.38 while he had severe hypercapnia. Now he has a pH of 7.48 once the pCO2 has dropped. His BUN and creatinine were 53 and 2.3 mg%. His potassium was 4.5. His liver profile showed normal AST and ALT. The chest x-ray was reviewed. IMPRESSION: At this time is possible pneumonemia with bilateral pleural effusions, significant hypoventilation hypoxia syndrome with congestive cardiac failure which is left ventricular diastolic and acute on chronic with A Fib. Seizure disorder. The patient's echocardiogram of 12/2016 was reviewed. His left ventricular systolic function was preserved with presence of mitral regurgitation and a significantly enlarged left atrium. The patient at this juncture has a heart rate ranging between 120 and 130 beats per minute. This promptly needs to be controlled. At the same time, if the bilateral pleural effusions persist, this may require urgent pleural tap. I have given patient a dose of digoxin to control his heart rate. The patient has already diuresed significantly. His systolic blood pressure is around 100 mmHg. I will monitor his INR and appropriately adjust his warfarin dose. Geovani Dela Cruz MD cc: 23 TT: 04/16/2017 09:15:59 Confirmation # [id number] Dictation # [id number] giovana BLAIR
--- NOTE | 2017-04-16 09:42 | RAD ---
HISTORY: Pt's intubated , to check placement COMPARISON: 04/15/2017 FINDINGS: LUNGS: No definite infiltrate no infiltrate at the bases may be obscured by superimposed pleural effusions. PLEURA: Bilateral moderate pleural effusion. Silhouetting of the both hemidiaphragms and obscuring of costophrenic angles. No pneumothorax. CARDIOVASCULAR: NG tube unchanged. Right IJ central venous catheter unchanged in position. Normal heart size. , OSSEOUS STRUCTURES: No significant abnormalities. VISUALIZED UPPER ABDOMEN: Normal. OTHER FINDINGS: None. IMPRESSION: Bilateral moderate pleural effusion. No definite infiltrate. Lines and tubes unchanged.
[2017-04-16] MEDS: Digoxin 125 mcg (0.125 mg) Tab PO SCH (09:57)
[2017-04-16] MEDS: Metoprolol Succinate 50 mg XL Tab PO SCH ×2 (09:59→21:50)
--- NOTE | 2017-04-16 10:02 | RAD ---
HISTORY: ett reposition COMPARISON: 04/15/2017 at 12:57 p.m. FINDINGS: LUNGS: Bilateral perihilar infiltrates slightly improved. PLEURA: Bilateral pleural effusion unchanged in extent. Small to moderate with layering posteriorly. CARDIOVASCULAR: Normal heart size. Nasogastric tube extends just beneath left hemidiaphragm and should be advanced. ET tube has been removed. . OSSEOUS STRUCTURES: No significant abnormalities. VISUALIZED UPPER ABDOMEN: Normal. OTHER FINDINGS: None. IMPRESSION: Slight improvement in extent of what is likely pulmonary edema. Bilateral pleural effusions persist. Decreasing perihilar infiltrates. Nasogastric tube should be advanced as its tip is just beneath the left hemidiaphragm. The ET tube removed.
--- NOTE | 2017-04-16 10:15 | CP.PCM.CON ---
History of Present Illness - History of Present Illness History of Present Illness: This patient who is 76 years old was admitted with some shortness of breath eventually was intubated and his intensive care unit. I was called to see him for abnormal kidney function with the rising BUN/creatinine. The at the bedside and the information has been taken from the family member. Patient has history of CVA seizures history of congestive heart failure about to history of chronic kidney disease. S3 of hypertension patient has been taken antihypertensive medication and Lasix. Social history unremarkable as noted in the chart Review of Systems - Review of Systems Systems not reviewed;Unavailable: Intubated - Constitutional Constitutional: As Per HPI - Cardiovascular Cardiovascular: absent: Chest Pain, Pedal Edema - Respiratory Respiratory: Cough. absent: Hemoptysis - Gastrointestinal Gastrointestinal: absent: Abdominal Pain, Coffee Ground Emesis, Vomiting - Genitourinary Genitourinary: Nocturia - Musculoskeletal Musculoskeletal: As Per HPI - Neurological Neurological: As Per HPI - Endocrine Endocrine: As Per HPI Past Patient History - Infectious Disease Hx of Infectious Diseases: None - Past Medical History & Family History Past Medical History?: Yes - Past Social History Smoking Status: Never Smoked Alcohol: None Drugs: Denies Home Situation {Lives}: With Family - CARDIAC Hx Cardiac Disorders: Yes Hx Atrial Fibrillation: Yes Hx Congestive Heart Failure: Yes Hx Hypertension: Yes Hx Peripheral Edema: Yes - PULMONARY Hx Respiratory Disorders: Yes Hx Sleep Apnea: Yes - NEUROLOGICAL Hx Neurological Disorder: Yes HX Cerebrovascular Accident: Yes ( denies) Hx Seizures: Yes Hx Syncope: Yes Hx Transient Ischemic Attacks (TIA): Yes - HEENT Hx HEENT Problems: No - RENAL Hx Chronic Kidney Disease: No - ENDOCRINE/METABOLIC Hx Endocrine Disorders: No - HEMATOLOGICAL/ONCOLOGICAL Hx Blood Disorders: No Hx Human Immunodeficiency Virus (HIV): No - INTEGUMENTARY Hx Dermatological Problems: No - MUSCULOSKELETAL/RHEUMATOLOGICAL Hx Musculoskeletal Disorders: Yes Hx Falls: Yes Hx Unsteady Gait: Yes - GASTROINTESTINAL Hx Gastrointestinal Disorders: No - GENITOURINARY/GYNECOLOGICAL Hx Genitourinary Disorders: Yes Hx Incontinence: Yes Hx Prostate Problems: Yes (BPH) - PSYCHIATRIC Hx Psychophysiologic Disorder: Yes Hx Hallucinations: Yes Hx Substance Use: No - SURGICAL HISTORY Hx Surgeries: No - ANESTHESIA Hx Anesthesia: No Meds Allergies/Adverse Reactions: Allergies Allergy/AdvReac Type Severity Reaction Status Date / Time EGG AdvReac HEADACHE Verified 04/15/17 15:49 seafoods Allergy SWELLING Uncoded 04/15/17 10:02 - Medications Medications: Current Medications Clonidine HCl (Catapres) 0.1 mg PO TID [facility] Last Admin: 04/15/17 17:43 Dose: Not Given Digoxin (Lanoxin) 0.125 mg PO DAILY [facility] Last Admin: 04/16/17 09:57 Dose: Not Given Diltiazem HCl (Cardizem) 60 mg PO Q6 [facility] Last Admin: 04/16/17 04:00 Dose: 60 mg Finasteride (Proscar) 5 mg PO DAILY [facility] Last Admin: 04/16/17 09:59 Dose: 5 mg Furosemide (Lasix) 20 mg IVP BID [facility] Last Admin: 04/15/17 18:01 Dose: 20 mg Norepinephrine Bitartrate 4 mg (/ Dextrose) 254 mls @ 30.48 mls/hr IV .Q8H20M [facility]; 8 MCG/MIN PRN Reason: Protocol Last Titration: 04/15/17 13:45 Dose: 0 mcg/min, 0 mls/hr Piperacillin Sod/Tazobactam (Sod 3.375 gm/ Sodium Chloride) 100 mls @ 100 mls/ hr IVPB Q6 [facility] Last Admin: 04/16/17 09:57 Dose: 100 mls/hr Lamotrigine (Lamictal) 25 mg PO BID [facility] Last Admin: 04/16/17 09:59 Dose: 25 mg Levalbuterol HCl (Xopenex) 0.63 mg INH RQ8 PRN PRN Reason: Shortness of Breath Last Admin: 04/15/17 19:36 Dose: 0.63 mg Lorazepam (Ativan) 1 mg IVP ONCE PRN PRN Reason: Agitation Last Admin: 04/15/17 23:05 Dose: 1 mg Lorazepam (Ativan) 2 mg IVP Q6 PRN PRN Reason: agitation, restlessness on cate Last Admin: 04/16/17 07:53 Dose: 2 mg Metoprolol Succinate (Toprol Xl) 50 mg PO Q12 [facility] Last Admin: 04/16/17 09:59 Dose: Not Given Pantoprazole Sodium (Protonix Inj) 40 mg IVP DAILY [facility] Last Admin: 04/16/17 09:56 Dose: 40 mg Physical Exam - Constitutional Appears: In Acute Distress - ENT Exam ENT Exam: Mucous Membranes Moist - Respiratory Exam Respiratory Exam: Rhonchi. absent: Chest Wall Tenderness - Cardiovascular Exam Cardiovascular Exam: absent: JVD, Rubs - GI/Abdominal Exam GI & Abdominal Exam: Normal Bowel Sounds - Extremities Exam Extremities exam: Negative for: calf tenderness - Back Exam Back exam: absent: CVA tenderness (L), CVA tenderness (R) - Neurological Exam Neurological exam: Altered Results - Vital Signs Recent Vital Signs: Last Vital Signs Temp 98.7 F 04/16/17 08:00 Pulse 120 H 04/16/17 08:00 Resp 14 04/16/17 08:00 BP 117/66 04/16/17 08:00 Pulse Ox 100 04/16/17 08:00 - Labs Result Diagrams: 04/15/17 10:20 04/15/17 10:20 Labs: Laboratory Results - last 24 hr 04/15/17 04/15/17 04/15/17 15:28 20:02 20:10 PT INR pCO2 49 H pO2 63 L HCO3 32.2 H ABG pH 7.46 H ABG Total CO2 36.3 H ABG O2 Saturation 93.1 L ABG O2 Content 16.7 ABG Base Excess 9.5 H ABG Hemoglobin 13.0 ABG Carboxyhemoglobin 0.8 POC ABG HHb (Measured) 6.8 H ABG Methemoglobin 1.1 ABG O2 Capacity 17.9 Broderick Test Yes A-a O2 Difference 304.0 Hgb O2 Saturation 91.3 L Vent Mode Mechanical Rate 14 FiO2 60.0 Tidal Volume 600 PEEP 5 Ur Random Creatinine 61.8 Ur Random Sodium 37 Ur Random Potassium 43.1 04/16/17 04/16/17 05:52 09:23 PT 30.7 H D INR 2.7 H D pCO2 47 H pO2 83 HCO3 32.9 H ABG pH 7.48 H ABG Total CO2 36.4 H ABG O2 Saturation 96.8 ABG O2 Content 14.8 L ABG Base Excess 10.2 H ABG Hemoglobin 11.0 L ABG Carboxyhemoglobin 0.4 L POC ABG HHb (Measured) 3.1 ABG Methemoglobin 1.2 ABG O2 Capacity 15.3 L Broderick Test Yes A-a O2 Difference 286.0 Hgb O2 Saturation 95.3 Vent Mode Prvc ac Mechanical Rate 14 FiO2 60.0 Tidal Volume 600 PEEP 5 Ur Random Creatinine Ur Random Sodium Ur Random Potassium Assessment & Plan (1) CANDELARIA (acute kidney injury) Assessment and Plan: Patient appears to have acute kidney injury from all of the above what happens to his respiratory failure. Patient has bilateral pleural effusion and possible pneumonia Continue management of CHF, Spot urine for sodium osmolality and creatinine, intravenous diuretic Continue to monitor Status: Acute (2) Acute respiratory failure Status: Acute Priority: High
[2017-04-16 10:54] LABS: HEMATOCRIT 33.9 % (35.0-51.0); MEAN CELL VOLUME 94.4 fl (80.0-94.0); MEAN CORPUSCULAR HEMOGLOBIN 30.6 pg (27.0-31.0); MEAN CORPUSCULAR HGB CONC 32.4 g/dL (33.0-37.0); RED CELL DISTRIBUTION WIDTH 15.7 % (11.5-14.5)
[2017-04-16 11:04] LABS: CALCIUM 8.2 mg/dL (8.4-10.2); PHOSPHOROUS 4.8 mg/dl (2.5-4.5); POTASSIUM 4.2 MMOL/L (3.6-5.0)
[2017-04-16 11:33] LABS: THYROID STIMULATING HORMONE 2.5 mIU/ML (0.46-4.68)
--- NOTE | 2017-04-16 15:00 | PN ---
DATE: 04/16/2017 LOCATION: The patient in ICU, bed 434. TIME SPENT: 35 minutes. The patient is seen and examined at the bedside. Events overnight are reviewed. A 76-year-old male status post [facility] in TCU, developed respiratory failure requiring intubation and mechanical ventilation . Chest x-ray: Bilateral pleural effusion, possible superimposed aspiration pneumonia. Overnight o n AC/PRVC rate of 14, tidal volume 600, FiO2 of 60%, observed rate 18, tidal volume exhaled 610, emily te ventilation 9.2 liters, saturating 95%, peak airway pressure 33, mean airway pressure 16. PHYSICAL EXAMINATION: GENERAL: Alert and awake, slow to respond. Remains lethargic. VITAL SIGNS: Temperature 98.9, heart rate 107-116, blood pressure 124/71, oxygen saturation 100%, FI O2 60, PEEP of 5. Intake 1314, output 1780, negative balance of 466. Weight 175 pounds. HEENT: Pupils reactive. Conjunctivae are pink. Sclerae white. NECK: Supple. No carotid bruit. CHEST: Bilateral breath sounds. Fine crepitations at the bases. HEART: Rhythm irregular. ABDOMEN: Bowel sounds present. Soft. Liver and spleen not palpable. Bladder not distended. EXTREMITIES: Chronic skin changes. Peripheral pulses are intact, symmetric, reduced in intensity. NEUROLOGIC: Remains lethargic and slow to respond. CURRENT MEDICATIONS: Include clonidine 0.1 mg 3 times daily, Lanoxin 0.125 mg p.o. daily, Cardizem 6 0 mg p.o. q. 6, finasteride 5 mg p.o. daily, Lasix 20 mg IV b.i.d., Lamictal 25 mg p.o. b.i.d., Xopen ex 0.63 mg q. 8 hours, lorazepam 1 mg IV once p.r.n. for agitation, metoprolol 50 mg p.o. q. 12, Prot deepa 40 IV daily, Zosyn 3.375 grams IV q. 6, warfarin 2.5 mg p.o. daily. LABORATORY DATA: WBC 9, hemoglobin 11, hematocrit 33.9, platelet count at 233. PT 30.7, INR 2.7. A BG: pH is 7.48, pCO2 of 47, pO2 83, saturating 96.8% on AC 14/600, 60%, PEEP of 5. SMA-7: Sodium 1 46, potassium 4.2, chloride 104, CO2 30, blood urea nitrogen 62, creatinine 2.8, glucose random 103, calcium 8.2, phosphorus 4.8, magnesium 2. TSH of 2.5. Urinalysis negative. Digoxin level 1.05. MICROBIOLOGY: Blood culture: No growth reported. Chest x-ray: NG tube unchanged. Right IJ central venous catheter unchanged. Normal heart size, ivett ateral moderate pleural effusion. IMPRESSION: Ventilator-dependent respiratory failure, hypoxic; acute on chronic left ventricular sys tolic with diastolic heart failure, pulmonary edema, history of obstructive sleep apnea, bilateral pl eural effusion; acute on chronic renal failure, seen by renal consult, appreciated recommendation; hy pertension with hypertensive cardiovascular disease, seen by cardiology consult, noted recommendation s, continue current antihypertensive medications; history of seizure, on Lamictal, remains seizure fr ee. Followup CAT scan of the chest without contrast to assess pleural effusion and/or superimposed pneumo bi. Continue antibiotics empirically for suspected aspiration pneumonia. The patient currently on Coumadin with therapeutic INR. Will cover for DVT prophylaxis. Clive Buckner MD cc: [id number] TT: 04/16/2017 14:59:35 Confirmation # [id number] Dictation # [id number] giovana
--- NOTE | 2017-04-16 15:06 | CP.PCM.PN ---
Subjective - Date & Time of Evaluation Date of Evaluation: 04/16/17 Time of Evaluation: 10:15 - Subjective Subjective: Previously sedated with Versed , intubated ICU time: 35 min. Objective - Vital Signs/Intake and Output Vital Signs (last 24 hours): Temp Pulse Resp BP Pulse Ox 98.9 F 116 H 15 124/71 100 04/16/17 12:00 04/16/17 13:00 04/16/17 13:00 04/16/17 13:00 04/16/17 13:00 Intake and Output: 04/16/17 04/16/17 06:59 18:59 Intake Total 800 550 Output Total 280 Balance 520 550 - Medications Medications: Current Medications Clonidine HCl (Catapres) 0.1 mg PO TID [facility] Last Admin: 04/15/17 17:43 Dose: Not Given Digoxin (Lanoxin) 0.125 mg PO DAILY [facility] Last Admin: 04/16/17 09:57 Dose: Not Given Diltiazem HCl (Cardizem) 60 mg PO Q6 [facility] Last Admin: 04/16/17 12:40 Dose: 60 mg Finasteride (Proscar) 5 mg PO DAILY [facility] Last Admin: 04/16/17 09:59 Dose: 5 mg Furosemide (Lasix) 20 mg IVP BID [facility] Last Admin: 04/16/17 12:48 Dose: 20 mg Piperacillin Sod/Tazobactam (Sod 3.375 gm/ Sodium Chloride) 100 mls @ 100 mls/ hr IVPB Q6 [facility] Last Admin: 04/16/17 09:57 Dose: 100 mls/hr Lamotrigine (Lamictal) 25 mg PO BID [facility] Last Admin: 04/16/17 09:59 Dose: 25 mg Levalbuterol HCl (Xopenex) 0.63 mg INH RQ8 PRN PRN Reason: Shortness of Breath Last Admin: 04/15/17 19:36 Dose: 0.63 mg Lorazepam (Ativan) 1 mg IVP ONCE PRN PRN Reason: Agitation Last Admin: 04/15/17 23:05 Dose: 1 mg Lorazepam (Ativan) 2 mg IVP Q6 PRN PRN Reason: agitation, restlessness on cate Last Admin: 04/16/17 12:39 Dose: 2 mg Metoprolol Succinate (Toprol Xl) 50 mg PO Q12 [facility] Last Admin: 04/16/17 09:59 Dose: Not Given Pantoprazole Sodium (Protonix Inj) 40 mg IVP DAILY [facility] Last Admin: 04/16/17 09:56 Dose: 40 mg Warfarin Sodium (Coumadin) 2.5 mg PO QD5 [facility] PRN Reason: Protocol Stop: 04/16/17 17:01 - Labs Labs: 04/16/17 10:41 04/16/17 10:37 PT 30.7 Seconds (9.8-13.1) H D 04/16/17 09:23 INR 2.7 (0.9-1.2) H D 04/16/17 09:23 APTT 34.0 Seconds (25.6-37.1) 04/15/17 10:20 - Constitutional Appears: Chronically Ill - Head Exam Head Exam: NORMAL INSPECTION - Eye Exam Additional comments: Pupils reactive to light - ENT Exam Additional comments: intubated - Neck Exam Neck Exam: Normal Inspection - Respiratory Exam Respiratory Exam: Decreased Breath Sounds (at bases), Rales (crackles at bases) - Cardiovascular Exam Cardiovascular Exam: Irregular Rhythm - GI/Abdominal Exam GI & Abdominal Exam: Soft, Normal Bowel Sounds - Extremities Exam Additional comments: chronic skin leg changes - Neurological Exam Additional comments: sedated, minimal spontaneous movements upper lower extremities - Skin Skin Exam: Warm Assessment and Plan (1) Acute respiratory failure Status: Acute (2) Altered mental status Status: Acute (3) Acute on chronic diastolic (congestive) heart failure Status: Chronic (4) Pleural effusion Status: Acute (5) CANDELARIA (acute kidney injury) Status: Acute (6) HTN (hypertension) Status: Chronic (7) A-fib Status: Chronic (8) Sleep apnea Status: Chronic (9) Lung nodule Status: Acute - Assessment and Plan (Free Text) Plan: CT Chest large B/L effusions, Patient will need B/L thoracentesis , to attempt weaning from vent , will DC Coumadin , IR consult for CT guided Thoracentesis adjusted to PT, nodule BRIANNE work up defered, continue treatment of CHF f/u ECHO , on Levophed low dosis forl low BP, heart rate low 100's
--- NOTE | 2017-04-16 16:49 | CARD ---
APPROVED REPORT EKG Measurement Heart [id number] <Conclusion> Atrial fibrillation Left axis deviation Right bundle branch block Abnormal ECG
--- NOTE | 2017-04-16 18:05 | CT ---
PROCEDURE: CT Chest without contrast HISTORY: respiratory failure , CHF, Pleural effusion COMPARISON: None. TECHNIQUE: Contiguous axial images were obtained through the chest without intravenous contrast enhancement. Sagittal and coronal reconstructions were performed. Radiation dose (DLP): 737.48 mGy-cm. This CT exam was performed using one or more of the following dose reduction techniques: Automated exposure control, adjustment of the mA and/or kV according to patient size, and/or use of iterative reconstruction technique. FINDINGS: LUNGS: Left upper lobe pulmonary nodule -mass 9.8 mm. Nodule/ mass lingula 13 mm. Compressive atelectasis affecting primarily both lower lobes. MEDIASTINUM: Unremarkable thoracic aorta. No aneurysm. Normal sized heart. Main pulmonary artery unremarkable. No vascular congestion. No lymphadenopathy. PLEURA: Large bilateral pleural effusions which are approximately symmetrical. BONES: No acute fractures. Old and healed anterior right rib fractures near the sternum identified. UPPER ABDOMEN: Grossly unremarkable. OTHER FINDINGS: Satisfactory position ventilatory, and nasogastric apparatus. Probable nodule in the right thyroid lobe 2.3 cm. Elective followup advised. IMPRESSION: Large bilateral pleural effusions and associated compressive atelectasis both lower lobes. Pulmonary nodules/ masses in the left upper lobe (2). I would recommend follow-up which would be optimized when the pleural effusions in consolidative changes have diminished.
[2017-04-16] MEDS: Acetylcysteine 10% 4 ML IH SCH (19:55)
[2017-04-16] MEDS: Levalbuterol 0.63 MG/3 ML Inhal Soln UD INH PRN (19:56)
[2017-04-16] MEDS: Midazolam 2 MG/2 ML VIAL IV PRN (23:06)
[2017-04-17] MEDS: Midazolam 2 MG/2 ML VIAL IV PRN (03:54)
[2017-04-17] MEDS: Piperacillin/Tazobact 3.375 GM in Sodium Chloride 0.9% 100 ML IVPB SCH ×2 (04:02→09:08)
[2017-04-17 05:06] LABS: ABG ALLEN TEST YES; ABG MECHANICAL RATE 14; ARTERIAL BLOOD GAS HCO3 32.3 mmol/L (21-28); ARTERIAL BLOOD GAS MODE PRVC/AC; ARTERIAL BLOOD GAS O2 CAPACITY 15.2 mL/dL (16-24); ARTERIAL BLOOD GAS O2 CONTENT 14.6 ML/dL (15-23); ARTERIAL BLOOD GAS PH 7.51 (7.35-7.45); ARTERIAL BLOOD GAS PO2 75 mm/Hg (80-100); ARTERIAL BLOOD HGB O2 SAT 94.7 % (95.0-98.0); ATERIAL BLOOD GAS PEEP 5; CARBOXYHEMOGLOBIN 0.6 % (0.5-1.5); HHB 3.8 % (0.0-5.0)
[2017-04-17 05:18] LABS: HEMATOCRIT 36.6 % (35.0-51.0); MEAN CELL VOLUME 93.6 fl (80.0-94.0); MEAN CORPUSCULAR HEMOGLOBIN 29.8 pg (27.0-31.0); MEAN CORPUSCULAR HGB CONC 31.9 g/dL (33.0-37.0); RED CELL DISTRIBUTION WIDTH 15.1 % (11.5-14.5); WHITE BLOOD COUNT 13.9 K/uL (4.8-10.8)
[2017-04-17 05:20] LABS: ALB/GLOB RATIO 0.9 (1.0-2.1); BILIRUBIN,TOTAL 0.8 mg/dl (0.2-1.3); CALCIUM 8.7 mg/dL (8.4-10.2); POTASSIUM 3.7 MMOL/L (3.6-5.0)
[2017-04-17 06:20] LABS: PARTIAL THROMBOPLASTIN TIME 35.5 Seconds (25.6-37.1)
[2017-04-17] MEDS: Acetylcysteine 10% 4 ML IH SCH ×2 (08:22→14:00)
[2017-04-17] MEDS: Levalbuterol 0.63 MG/3 ML Inhal Soln UD INH PRN (08:23)
[2017-04-17] MEDS: Digoxin 125 mcg (0.125 mg) Tab PO SCH (09:08)
[2017-04-17 09:51] LABS: MICROALBUMIN 70.1 mg/dL
--- NOTE | 2017-04-17 10:21 | CP.PCM.PN ---
Subjective - Date & Time of Evaluation Date of Evaluation: 04/17/17 Time of Evaluation: 10:00 - Subjective Subjective: Still remains orally intubated on vent support A Fib with HR 90-110 BPM (on metoprololand Cardizem+ Dig0.125 Mg) Has large bilat pleural effusions (These need tapping) On Lasix 20 Mg IV BID, pt has had rising Azotemia (needed pressors during night) INR 2.4 today (No warfarin in anticipation of pleural tap) Discussed with Dr. Serraon reversing INR with FFP so pt can have pleural tap On a higher dose of beta blockers to control HR Objective - Vital Signs/Intake and Output Vital Signs (last 24 hours): Temp Pulse Resp BP Pulse Ox 98.1 F 123 H 13 109/58 L 99 04/17/17 07:55 04/17/17 07:55 04/17/17 07:55 04/17/17 07:55 04/17/17 07:55 Intake and Output: 04/17/17 04/17/17 06:59 18:59 Intake Total 529 Output Total 450 Balance 79 - Medications Medications: Current Medications Acetylcysteine (Mucomyst 10% 4ml) 2 ml IH RTID [facility] Last Admin: 04/17/17 08:22 Dose: 2 ml Digoxin (Lanoxin) 0.125 mg PO DAILY [facility] Last Admin: 04/17/17 09:08 Dose: 0.125 mg Diltiazem HCl (Cardizem) 60 mg PO Q6 [facility] Last Admin: 04/17/17 09:08 Dose: 60 mg Finasteride (Proscar) 5 mg PO DAILY [facility] Last Admin: 04/17/17 09:08 Dose: 5 mg Furosemide (Lasix) 20 mg IVP DAILY [facility] Piperacillin Sod/Tazobactam (Sod 3.375 gm/ Sodium Chloride) 100 mls @ 100 mls/ hr IVPB Q6 [facility] Last Admin: 04/17/17 09:08 Dose: 100 mls/hr Norepinephrine Bitartrate 4 mg (/ Dextrose) 254 mls @ 9.52 mls/hr IV .Q24H [facility] ; 2.5 MCG/MIN PRN Reason: Protocol Last Titration: 04/17/17 05:07 Dose: 0 mcg/min, 0 mls/hr Lamotrigine (Lamictal) 25 mg PO BID [facility] Last Admin: 04/17/17 09:09 Dose: 25 mg Levalbuterol HCl (Xopenex) 0.63 mg INH RQ8 PRN PRN Reason: Shortness of Breath Last Admin: 04/17/17 08:23 Dose: 0.63 mg Metoprolol Tartrate (Lopressor) 75 mg PO Q12 [facility] Midazolam HCl (Versed Inj) 2 mg IV Q4H PRN PRN Reason: agitation/anxiety on vent Last Admin: 04/17/17 03:54 Dose: 2 mg Pantoprazole Sodium (Protonix Inj) 40 mg IVP DAILY [facility] Last Admin: 04/17/17 09:07 Dose: 40 mg - Labs Labs: 04/17/17 04:10 04/17/17 04:10 PT 27.9 Seconds (9.8-13.1) H 04/17/17 04:10 INR 2.4 (0.9-1.2) H 04/17/17 04:10 APTT 35.5 Seconds (25.6-37.1) 04/17/17 04:10
--- NOTE | 2017-04-17 10:35 | CP.PCM.PN ---
Subjective - Date & Time of Evaluation Date of Evaluation: 04/17/17 Time of Evaluation: 10:32 - Subjective Subjective: Patient remained intubated his at the bedside His blood pressure this morning appears to be okay although it was reported overnight to develop hypotension and his blood pressure in the low normal Physical exam Blood pressure 10 9 x 60 as noted Neck was supple Chest decreased breath sound bilateral Heart no rubs Abdomen soft Extremity no significant edema Impression and plan Worsening kidney function was rising serum creatinine probably because of the intravascular depletion patient developed hypotension overnight. Bilateral large pleural effusion, patient need to have bilateral pleural tap to alleviate the pulmonary issue and that perhaps will improve the renal perfusion as well once the intravascular volume improving. Case discussed with the lab aide for coordination of care Objective - Vital Signs/Intake and Output Vital Signs (last 24 hours): Temp Pulse Resp BP Pulse Ox 98.1 F 123 H 13 109/58 L 99 04/17/17 07:55 04/17/17 07:55 04/17/17 07:55 04/17/17 07:55 04/17/17 07:55 Intake and Output: 04/17/17 04/17/17 06:59 18:59 Intake Total 529 Output Total 450 Balance 79 - Medications Medications: Current Medications Acetylcysteine (Mucomyst 10% 4ml) 2 ml IH RTID [facility] Last Admin: 04/17/17 08:22 Dose: 2 ml Digoxin (Lanoxin) 0.125 mg PO DAILY [facility] Last Admin: 04/17/17 09:08 Dose: 0.125 mg Diltiazem HCl (Cardizem) 60 mg PO Q6 [facility] Last Admin: 04/17/17 09:08 Dose: 60 mg Finasteride (Proscar) 5 mg PO DAILY [facility] Last Admin: 04/17/17 09:08 Dose: 5 mg Furosemide (Lasix) 20 mg IVP DAILY [facility] Piperacillin Sod/Tazobactam (Sod 3.375 gm/ Sodium Chloride) 100 mls @ 100 mls/ hr IVPB Q6 [facility] Last Admin: 04/17/17 09:08 Dose: 100 mls/hr Norepinephrine Bitartrate 4 mg (/ Dextrose) 254 mls @ 9.52 mls/hr IV .Q24H [facility] ; 2.5 MCG/MIN PRN Reason: Protocol Last Titration: 04/17/17 05:07 Dose: 0 mcg/min, 0 mls/hr Lamotrigine (Lamictal) 25 mg PO BID [facility] Last Admin: 04/17/17 09:09 Dose: 25 mg Levalbuterol HCl (Xopenex) 0.63 mg INH RQ8 PRN PRN Reason: Shortness of Breath Last Admin: 04/17/17 08:23 Dose: 0.63 mg Metoprolol Tartrate (Lopressor) 75 mg PO Q12 [facility] Midazolam HCl (Versed Inj) 2 mg IV Q4H PRN PRN Reason: agitation/anxiety on vent Last Admin: 04/17/17 03:54 Dose: 2 mg Pantoprazole Sodium (Protonix Inj) 40 mg IVP DAILY [facility] Last Admin: 04/17/17 09:07 Dose: 40 mg - Labs Labs: 04/17/17 04:10 04/17/17 04:10 PT 27.9 Seconds (9.8-13.1) H 04/17/17 04:10 INR 2.4 (0.9-1.2) H 04/17/17 04:10 APTT 35.5 Seconds (25.6-37.1) 04/17/17 04:10 Assessment and Plan (1) CANDELARIA (acute kidney injury) Status: Acute (2) Acute respiratory failure Status: Acute
--- NOTE | 2017-04-17 11:49 | CP.CCUPN ---
CCU Subjective - Physician Review Subjective (Free Text): CURATORIAL SPECIALIST PROGRESS NOTE Patient examined, interim events reviewed: Appears lethargic and not interactive nor following any commands, last recd Versed 2 mg at approx 330Am overnight, Breathing 14 on AC 14, 60% oxygen with 98 % SPO2. He was briefly on Levophed overnight and since has been weaned off at 5AM. Afebrile, BP 99-110 systolic, HR 135 in A fib. 24H I/O's= 1579/850ml. ROS: as above, unobtainable, but no other pertinent negs or positives on 10 system review upon questioning the at the bedside. PMFSH: all nursing and historical notes reviewed, no new pertinent data relevant to current problems. No other distress noted: EXAM- HEENT: no icterus, pupils equal and reactive NECK: no visible JVD, supple, carotids equal upstroke bilat/no bruits CHEST: decreased BS bases, no wheezes HEART: regular, distant, S1S2, no murmur audible, no rubs. ABD: soft, no increased distention, no focal tenderness, no HSM. BS hypoactive EXT: +3-4 Edema and overall anasarca; peripheral/ digital cyanosis, no calf tenderness or palpable cords, distal pulses (PT and DP) non-palpable. NEURO: withdraws x 4 extremities to painful stimulus. SKIN: no rashes LABS: 7.51/42/75 WBC= 13.9 HGB= 11.7 PLTs= 307K INR= 2.4 Na= 149 K= 3.7 HCO3= 32 BUN/Cr= 69/3.1 BS= 107 CXR: ETT position Ok above apoorva, Bilat R worse than L basila r haziness. MAJOR PROBLEMS NOW: 1. Acute Hypoxic Resp failure 2 Large bilat pleural effusions, compressive Atelectasis , r/o underlying Pneumonia 2. Rapid A Fib (Chronic A. Fib on AC x 4 yrs) 3. 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 Metabolic Encephalopathy 5. Seizure Disorder 6. Hypernatremia PLAN: 1. MV weans when mental status improves, try to hold anxiolytics. Decrease Versed to 1 mg Q6h PRN. Decrease A c rate to 10, ABG reflects post hypercapniec resp alkalosis. 2. IR eval for feasibility in draining effusions. Conservative measures at diuresis have been ineffective. Send fluid for diagnostic purposes too. 3. ECHO done today, 4. Empiric abx coverage noted, on Zosyn. Sputum from 04/15/17 results pending. 5. Stop Coumadin for anticipated IR procedure. 6. Stop NSS IVFs, may be exacerbating hypernatremia, hydrate vie tube feeds with free water. 7. More Digoxin for rate control. 8. Discussed Advance Directives with , Full Code status for now.
--- NOTE | 2017-04-17 11:57 | CARD ---
APPROVED REPORT EXAM: Two-dimensional and M-mode echocardiogram with Doppler and color Doppler. Other Information Quality : PoorRhythm : INDICATION Pericardial Effusion Congestive Heart Failure 2D DIMENSIONS IVSd1.45 (0.7-1.1cm)LVDd4.20 (3.9-5.9cm) LVOT Diameter2.29 (1.8-2.4cm)PWd1.10 (0.7-1.1cm) IVSs1.66 (0.8-1.2cm)LVDs2.65 (2.5-4.0cm) FS (%) 37.0 %PWs1.81 (0.8-1.2cm) M-Mode DIMENSIONS Left Atrium (MM)4.72 (2.5-4.0cm)Aortic Root3.00 (2.2-3.7cm) Aortic Cusp Exc.1.88 (1.5-2.0cm) Aortic Valve AoV Peak Oejplgys09.2cm/sAoV VTI19.4cmAO Peak GR.4mmHg LVOT Peak Tbkufeub05.7cm/Mahesh Mean GR.2mmHgAVA (VMAX)1.48cm2 Mitral Valve MV E Gopctzjw27.1cm/sMV DECEL GCVW163mlGS A Qftnwtuy50.0cm/s MV LED17bxF/A ratio2.8MVA (PHT)4.69cm2 TDI Lateral E' Peak V7.17cm/sMedial E' Peak V7.41cm/sE/Lateral E'9.6 E/Medial E'9.3 Pulmonary Valve PV Peak Gjcnrppz36.1cm/s Tricuspid Valve TR Peak Wvopxwfx644hk/sTR Peak Gr.16mmHg LEFT VENTRICLE The left ventricle is normal size. There is normal left ventricular wall thickness. The left ventricular function is normal. The left ventricular ejection fraction is within the normal range. The Ejection Fraction is 55-60%. There is normal LV segmental wall motion. The left ventricular diastolic function is normal. No left ventricle thrombus noted on this study. There is no mass noted in the left ventricle. RIGHT VENTRICLE The right ventricle is normal size. There is normal right ventricular wall thickness. The right ventricular systolic function is normal. ATRIA The left atrium size is normal. The right atrium size is normal. The interatrial septum is intact with no evidence for an atrial septal defect. AORTIC VALVE Poorly visualized Poorly visualized Poorly visualized MITRAL VALVE Poorly visualized Poorly visualized Poorly visualized Poorly visualized TRICUSPID VALVE Poorly visualized Poorly visualized Poorly visualized Poorly visualized PULMONIC VALVE Poorly visualized Poorly visualized Poorly visualized GREAT VESSELS Poorly visualized Poorly visualized PERICARDIAL EFFUSION The pericardium appears normal. There is large right pleural effusion. There is large left pleural effusion. <Conclusion> Very poor echo The left ventricular function is normal. The left ventricular ejection fraction is within the normal range. The Ejection Fraction is 55-60%. There is large right pleural effusion. There is large left pleural effusion.
[2017-04-17] MEDS ORDERED: Midazolam 2 MG/2 ML VIAL IV PRN (11:58)
[2017-04-17] MEDS ORDERED: Metoprolol 1 mg/ml Inj IVP ONE (13:34)
--- NOTE | 2017-04-17 15:21 | RAD ---
HISTORY: Intubated. COMPARISON: Chest x-ray performed 04/16/17, CT chest without contrast performed 04/16/17 TECHNIQUE: Chest, one view. FINDINGS: Examination limited by habitus. Distal tip of the endotracheal tube appears to terminate approximately 3.9 cm above the apoorva. Nasogastric tube appears to extend beyond the hemidiaphragm towards expected location of the stomach. LUNGS: Layering bilateral pleural effusions and associated consolidations. No definite pneumothorax. Please note that chest x-ray has limited sensitivity for the detection of pulmonary masses. CARDIOVASCULAR: Cardiomegaly. Atherosclerotic calcifications of the aorta. OSSEOUS STRUCTURES: Degenerative changes. VISUALIZED UPPER ABDOMEN: Unremarkable. OTHER FINDINGS: None. IMPRESSION: Distal tip of the endotracheal tube appears to terminate approximately 3.9 cm above the apoorva. Nasogastric tube appears to extend beyond the hemidiaphragm towards expected location of the stomach. Moderate layering bilateral pleural effusions and associated consolidations. Cardiomegaly.
--- NOTE | 2017-04-17 17:44 | CP.PCM.PN ---
Subjective - Date & Time of Evaluation Date of Evaluation: 04/17/17 Time of Evaluation: 10:30 - Subjective Subjective: F/U Acute Respiratory Failure lethargic,not following commands by his at bedside ,intubated ICU time: 32 min. Objective - Vital Signs/Intake and Output Vital Signs (last 24 hours): Temp Pulse Resp BP Pulse Ox 98.4 F 113 H 16 152/79 H 97 04/17/17 16:00 04/17/17 17:37 04/17/17 16:00 04/17/17 13:51 04/17/17 12:12 Intake and Output: 04/17/17 04/17/17 06:59 18:59 Intake Total 529 925 Output Total 450 Balance 79 925 - Medications Medications: Current Medications Acetylcysteine (Mucomyst 10% 4ml) 2 ml IH RTID [facility] Last Admin: 04/17/17 08:22 Dose: 2 ml Digoxin (Lanoxin) 0.125 mg PO DAILY [facility] Last Admin: 04/17/17 09:08 Dose: 0.125 mg Diltiazem HCl (Cardizem) 30 mg PO Q6 [facility] Last Admin: 04/17/17 17:37 Dose: 30 mg Finasteride (Proscar) 5 mg PO DAILY [facility] Last Admin: 04/17/17 09:08 Dose: 5 mg Furosemide (Lasix) 20 mg IVP DAILY [facility] Norepinephrine Bitartrate 4 mg (/ Dextrose) 254 mls @ 9.52 mls/hr IV .Q24H [facility] ; 2.5 MCG/MIN PRN Reason: Protocol Last Titration: 04/17/17 05:07 Dose: 0 mcg/min, 0 mls/hr Piperacillin Sod/Tazobactam (Sod 2.25 gm/ Sodium Chloride) 100 mls @ 100 mls/ hr IVPB Q8 [facility] Last Admin: 04/17/17 17:33 Dose: 100 mls/hr Lamotrigine (Lamictal) 25 mg PO BID [facility] Last Admin: 04/17/17 17:37 Dose: 25 mg Levalbuterol HCl (Xopenex) 0.63 mg INH RQ8 PRN PRN Reason: Shortness of Breath Last Admin: 04/17/17 08:23 Dose: 0.63 mg Metoprolol Tartrate (Lopressor) 100 mg GT Q12 [facility] Midazolam HCl (Versed Inj) 1 mg IV Q6H PRN PRN Reason: agitation/anxiety on vent Pantoprazole Sodium (Protonix Inj) 40 mg IVP DAILY [facility] Last Admin: 04/17/17 09:07 Dose: 40 mg - Labs Labs: 04/17/17 04:10 04/17/17 04:10 PT 27.9 Seconds (9.8-13.1) H 04/17/17 04:10 INR 2.4 (0.9-1.2) H 04/17/17 04:10 APTT 35.5 Seconds (25.6-37.1) 04/17/17 04:10 - Constitutional Appears: Chronically Ill - Head Exam Head Exam: NORMAL INSPECTION - Eye Exam Additional comments: Pupils reactive to light - ENT Exam Additional comments: Intubated. - Neck Exam Neck Exam: Normal Inspection - Respiratory Exam Respiratory Exam: Decreased Breath Sounds (at bases), Rales (crackkles at bases) - Cardiovascular Exam Cardiovascular Exam: Tachycardia, Irregular Rhythm - GI/Abdominal Exam GI & Abdominal Exam: Soft, Normal Bowel Sounds - Extremities Exam Additional comments: Chronic skin legs changes, edema - Back Exam Back Exam: NORMAL INSPECTION - Neurological Exam Additional comments: lethargic , minimal spontaneous movement U/E and L/E to tactil stimuli - Skin Skin Exam: Warm Assessment and Plan (1) Acute respiratory failure Status: Acute (2) Acute on chronic diastolic (congestive) heart failure Status: Acute (3) Pleural effusion Status: Acute (4) CANDELARIA (acute kidney injury) Status: Acute (5) HTN (hypertension) Status: Chronic (6) A-fib Status: Chronic (7) Sleep apnea Status: Chronic (8) Lung nodule Status: Acute - Assessment and Plan (Free Text) Plan: Versed prn , off Levophed , HR still elevated , Metropolol , Cardizem , Digoxin to control AFib RVR . Coumadin DC , Patient to have FFP in attempt to decrease INR , to have CT Guided Thoracentesis am pending INR result ,continue Lasix , Xopenex and rest of treatment, attempt to wean after Thoracentesis
[2017-04-18 04:32] LABS: ABG ALLEN TEST YES; ABG MECHANICAL RATE 10; ARTERIAL BLOOD GAS HCO3 33.6 mmol/L (21-28); ARTERIAL BLOOD GAS MODE A/C; ARTERIAL BLOOD GAS O2 CAPACITY 15.6 mL/dL (16-24); ARTERIAL BLOOD GAS O2 CONTENT 15.2 ML/dL (15-23); ARTERIAL BLOOD GAS PH 7.43 (7.35-7.45); ARTERIAL BLOOD GAS PO2 99 mm/Hg (80-100); ARTERIAL BLOOD HGB O2 SAT 95.9 % (95.0-98.0); ATERIAL BLOOD GAS PEEP 5; CARBOXYHEMOGLOBIN 0.5 % (0.5-1.5); HHB 2.4 % (0.0-5.0); METHEMOGLOBIN 1.2 % (0.0-3.0)
[2017-04-18 05:45] LABS: HEMATOCRIT 33.5 % (35.0-51.0); MEAN CELL VOLUME 94.9 fl (80.0-94.0); MEAN CORPUSCULAR HEMOGLOBIN 30.6 pg (27.0-31.0); MEAN CORPUSCULAR HGB CONC 32.2 g/dL (33.0-37.0); RED CELL DISTRIBUTION WIDTH 15.7 % (11.5-14.5); WHITE BLOOD COUNT 10.9 K/uL (4.8-10.8)
--- NOTE | 2017-04-18 06:40 | CP.CCUPN ---
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 Temps most;y 98-99F, remains off vasopressors, BP 110-15s, HR 80-90s in A Afib. Breathing 18 on AC 10, TV 500ml, 60%c and PEEP 5 with 100% SPO2. Recd FFP overnight. 24H I/O's= 1865/500ml. ROS: as above, unobtainable, but no other pertinent negs or positives on 10 system review upon questioning the at the bedside. PMFSH: all nursing and historical notes reviewed, no new pertinent data relevant to current problems. No other distress noted: EXAM- HEENT: no icterus, pupils equal and reactive NECK: no visible JVD, supple, carotids equal upstroke bilat/no bruits CHEST: decreased BS bases, no wheezes HEART: regular, distant, S1S2, no murmur audible, no rubs. ABD: soft, no increased distention, no focal tenderness, no HSM. BS hypoactive EXT: +3-4 Edema and overall anasarca; peripheral/ digital cyanosis, no calf tenderness or palpable cords, distal pulses (PT and DP) non-palpable. NEURO: withdraws x 4 extremities to painful stimulus. SKIN: no rashes LABS: 7.43/56/99 WBC= 10.9 HGB= 10.8 PLTs= 267K INR= 2.4 yesterday Na= 152 K= 3.5 HCO3=35 BUN/Cr=76/2.9 BS= 132 CXR: ETT position Ok above apoorva, Bilat R worse than L basila r haziness- essentially unchanged over he past several days. (my interp) MAJOR PROBLEMS NOW: 1. Acute Hypoxic Resp failure 2 Large bilat pleural effusions, compressive Atelectasis , r/o underlying Pneumonia 2. Rapid A Fib (Chronic A. Fib on AC x 4 yrs) 3. 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 Metabolic Encephalopathy 5. Seizure Disorder 6. Hypernatremia PLAN: 1. No MV weans when mental status improves, holding anxiolytics for excessive agitation only. De Versed decreased to 1 mg Q6h PRN. 2. IR eval for feasibility in draining effusions. Conservative measures at diuresis have been ineffective. Send fluid for diagnostic purposes too. 3. ECHO results reviewed. 4. Empiric abx coverage noted, on Zosyn. Sputum from 04/15/17 results pending. 5. Held Coumadin for anticipated IR procedure. INR pending, if not below 1.7, FFP on standby for infusion during Thoracentesis procedure- discuss with IR. 6. Stop NSS IVFs, may be exacerbating hypernatremia, hydrate with free water via tube feeds. Will add D5W fluids today. 7. Additional prn Digoxin for rate control. 8. requested stopping Lamictal, discussed need to continue antiepileptics. If no improvement in mental status, will do EEG to look for NCSE. Check Lamictal levels.
[2017-04-18 06:58] LABS: ALB/GLOB RATIO 0.9 (1.0-2.1); BILIRUBIN,TOTAL 0.6 mg/dl (0.2-1.3); CALCIUM 8.7 mg/dL (8.4-10.2); POTASSIUM 3.5 MMOL/L (3.6-5.0); TOTAL PROTEIN 6.4 G/DL (6.3-8.2)
[2017-04-18] MEDS ORDERED: Phytonadione 10 mg/ml Inj (Adult) IVPB ONE (07:56)
[2017-04-18] MEDS: Acetylcysteine 10% 4 ML IH SCH ×3 (08:52→19:49)
[2017-04-18] MEDS: Levalbuterol 0.63 MG/3 ML Inhal Soln UD INH PRN ×2 (08:52→19:49)
[2017-04-18] MEDS: Digoxin 125 mcg (0.125 mg) Tab PO SCH (09:28)
[2017-04-18] MEDS ORDERED: Phytonadione 10 MG in Dextrose 5% In Water 50 ML IV ONE (09:30)
--- NOTE | 2017-04-18 10:22 | CP.PCM.PN ---
Subjective - Date & Time of Evaluation Date of Evaluation: 04/18/17 Time of Evaluation: 10:19 - Subjective Subjective: No significant changes noted overnight Remain on respirator Intake and output noted intake 850 mL output 700 mL Lungs decreased breath sound Heart no rubs Abdomen soft Extremity 1-2+ edema Acute kidney injury slight improvement in kidney function and serum creatinine but not BUN Hypernatremia serum sodium 152 Patient need to change intravenous IV fluid D5W Waiting to have pleural tab Patient may need intravenous albumin to be given every 12 hours 25% 50 mL Objective - Vital Signs/Intake and Output Vital Signs (last 24 hours): Temp Pulse Resp BP Pulse Ox 98.7 F 115 H 23 142/73 95 04/18/17 08:00 04/18/17 09:49 04/18/17 08:00 04/18/17 09:48 04/18/17 08:00 Intake and Output: 04/18/17 04/18/17 06:59 18:59 Intake Total 1060 Output Total 700 Balance 360 - Medications Medications: Current Medications Acetylcysteine (Mucomyst 10% 4ml) 2 ml IH RTID [facility] Last Admin: 04/18/17 08:52 Dose: 2 ml Digoxin (Lanoxin) 0.125 mg PO DAILY [facility] Last Admin: 04/18/17 09:28 Dose: 0.125 mg Diltiazem HCl (Cardizem) 30 mg PO Q6 [facility] Last Admin: 04/18/17 09:49 Dose: 30 mg Finasteride (Proscar) 5 mg PO DAILY [facility] Last Admin: 04/18/17 09:30 Dose: 5 mg Furosemide (Lasix) 20 mg IVP DAILY [facility] Last Admin: 04/18/17 09:48 Dose: 20 mg Norepinephrine Bitartrate 4 mg (/ Dextrose) 254 mls @ 9.52 mls/hr IV .Q24H [facility] ; 2.5 MCG/MIN PRN Reason: Protocol Last Titration: 04/17/17 05:07 Dose: 0 mcg/min, 0 mls/hr Piperacillin Sod/Tazobactam (Sod 2.25 gm/ Sodium Chloride) 100 mls @ 100 mls/ hr IVPB Q8 [facility] Last Admin: 04/18/17 09:31 Dose: 100 mls/hr Dextrose (Dextrose 5% In Water 1000 Ml) 1,000 mls @ 60 mls/hr IV .[id number] [facility] Stop: 04/19/17 07:18 Last Admin: 04/18/17 09:27 Dose: 60 mls/hr Lamotrigine (Lamictal) 25 mg PO BID [facility] Last Admin: 04/18/17 09:27 Dose: 25 mg Levalbuterol HCl (Xopenex) 0.63 mg INH RQ8 PRN PRN Reason: Shortness of Breath Last Admin: 04/18/17 08:52 Dose: 0.63 mg Metoprolol Tartrate (Lopressor) 100 mg GT Q12 [facility] Last Admin: 04/18/17 09:30 Dose: 100 mg Midazolam HCl (Versed Inj) 1 mg IV Q6H PRN PRN Reason: agitation/anxiety on vent Pantoprazole Sodium (Protonix Inj) 40 mg IVP DAILY [facility] Last Admin: 04/18/17 09:31 Dose: 40 mg - Labs Labs: 04/18/17 05:00 04/18/17 05:00 PT 21.6 Seconds (9.8-13.1) H D 04/18/17 05:00 INR 1.9 (0.9-1.2) H D 04/18/17 05:00 APTT 35.5 Seconds (25.6-37.1) 04/17/17 04:10 Assessment and Plan (1) CANDELARIA (acute kidney injury) Status: Acute (2) Acute respiratory failure Status: Acute
--- NOTE | 2017-04-18 10:57 | RAD ---
HISTORY: intubated, effusions COMPARISON: 04/17/2017 FINDINGS: LUNGS: No definite consolidation no pleural effusion opacity at lung bases may obscure basilar infiltrates. PLEURA: Bilateral pleural effusion, unchanged. CARDIOVASCULAR: Normal heart size. Nasogastric tube extends to upper abdomen. Endotracheal tube obscured by patient's mandible overlying the upper central thorax. Position of ET tube tip cannot be adequately assessed on the basis of this examination. OSSEOUS STRUCTURES: No significant abnormalities. VISUALIZED UPPER ABDOMEN: Normal. OTHER FINDINGS: None. IMPRESSION: Bilateral pleural effusion. Cannot exclude basilar infiltrates due to superimposed opacity of the pleural effusions. Cannot adequately assess position of ET tube on the basis of this examination, as above. NG tube unchanged. .
--- NOTE | 2017-04-18 16:16 | CP.PCM.PN ---
Subjective - Date & Time of Evaluation Date of Evaluation: 04/18/17 Time of Evaluation: 10:20 - Subjective Subjective: F/U Acute respiratory Failure lethargic , intubated , not following commands , not responding to verbal stimuli for his at bedside ICU time: 34 min. Objective - Vital Signs/Intake and Output Vital Signs (last 24 hours): Temp Pulse Resp BP Pulse Ox 98.3 F 97 H 18 154/85 H 100 04/18/17 12:00 04/18/17 15:43 04/18/17 15:43 04/18/17 15:43 04/18/17 15:43 Intake and Output: 04/18/17 04/18/17 06:59 18:59 Intake Total 1060 1720 Output Total 700 800 Balance 360 920 - Medications Medications: Current Medications Acetylcysteine (Mucomyst 10% 4ml) 2 ml IH RTID [facility] Last Admin: 04/18/17 14:00 Dose: Not Given Digoxin (Lanoxin) 0.125 mg PO DAILY [facility] Last Admin: 04/18/17 09:28 Dose: 0.125 mg Diltiazem HCl (Cardizem) 30 mg PO Q6 [facility] Last Admin: 04/18/17 15:43 Dose: 30 mg Famotidine (Pepcid) 20 mg GT BID [facility] Finasteride (Proscar) 5 mg PO DAILY [facility] Last Admin: 04/18/17 09:30 Dose: 5 mg Furosemide (Lasix) 20 mg IVP DAILY [facility] Last Admin: 04/18/17 09:48 Dose: 20 mg Piperacillin Sod/Tazobactam (Sod 2.25 gm/ Sodium Chloride) 100 mls @ 100 mls/ hr IVPB Q8 [facility] Last Admin: 04/18/17 09:31 Dose: 100 mls/hr Dextrose (Dextrose 5% In Water 1000 Ml) 1,000 mls @ 60 mls/hr IV .[id number] [facility] Stop: 04/19/17 07:18 Last Admin: 04/18/17 09:27 Dose: 60 mls/hr Lamotrigine (Lamictal) 25 mg PO BID [facility] Last Admin: 04/18/17 09:27 Dose: 25 mg Levalbuterol HCl (Xopenex) 0.63 mg INH RQ8 PRN PRN Reason: Shortness of Breath Last Admin: 04/18/17 08:52 Dose: 0.63 mg Metoprolol Tartrate (Lopressor) 100 mg GT Q12 [facility] Last Admin: 04/18/17 09:30 Dose: 100 mg Midazolam HCl (Versed Inj) 1 mg IV Q6H PRN PRN Reason: agitation/anxiety on vent Ondansetron HCl (Zofran Inj) 4 mg IVP Q6 PRN PRN Reason: Nausea/Vomiting Pantoprazole Sodium (Protonix Inj) 40 mg IVP DAILY [facility] Last Admin: 04/18/17 09:31 Dose: 40 mg - Labs Labs: 04/18/17 05:00 04/18/17 05:00 PT 21.6 Seconds (9.8-13.1) H 04/18/17 12:51 INR 1.9 (0.9-1.2) H 04/18/17 12:51 APTT 35.5 Seconds (25.6-37.1) 04/17/17 04:10 - Constitutional Appears: Chronically Ill - Head Exam Head Exam: NORMAL INSPECTION - Eye Exam Additional comments: Pupils reactive to light - ENT Exam Additional comments: Intubated - Neck Exam Neck Exam: Normal Inspection - Respiratory Exam Respiratory Exam: Decreased Breath Sounds (at bases), Rales (crackles at bases) - Cardiovascular Exam Cardiovascular Exam: Irregular Rhythm - GI/Abdominal Exam GI & Abdominal Exam: Soft, Normal Bowel Sounds - Extremities Exam Additional comments: Chronic skin changes L/E - Back Exam Back Exam: NORMAL INSPECTION - Neurological Exam Additional comments: Intubated, lethargic , minimal spontaneous movements L/E - Skin Skin Exam: Warm Assessment and Plan (1) Acute respiratory failure Status: Acute (2) Acute on chronic diastolic (congestive) heart failure Status: Acute (3) Pleural effusion Status: Acute (4) CANDELARIA (acute kidney injury) Status: Acute (5) HTN (hypertension) Status: Chronic (6) A-fib Status: Chronic (7) Sleep apnea Status: Chronic (8) Lung nodule Status: Acute (9) Hypernatremia Status: Acute - Assessment and Plan (Free Text) Plan: Patient had FFP yesterday , INR 1.9 today, to have FFP today, attempt of Thoracentesis if INR down to 1.5 , correction of hypernatremia , continue rest of treatment
[2017-04-19 04:51] LABS: ABG ALLEN TEST YES; ABG MECHANICAL RATE 10; ARTERIAL BLOOD GAS HCO3 35.4 mmol/L (21-28); ARTERIAL BLOOD GAS MODE PRVC/AC; ARTERIAL BLOOD GAS O2 CAPACITY 15.2 mL/dL (16-24); ARTERIAL BLOOD GAS O2 CONTENT 14.9 ML/dL (15-23); ARTERIAL BLOOD GAS PH 7.45 (7.35-7.45); ARTERIAL BLOOD GAS PO2 110 mm/Hg (80-100); ARTERIAL BLOOD HGB O2 SAT 96.2 % (95.0-98.0); ATERIAL BLOOD GAS PEEP 5; CARBOXYHEMOGLOBIN 0.6 % (0.5-1.5); METHEMOGLOBIN 1.2 % (0.0-3.0)
[2017-04-19 05:22] LABS: HEMATOCRIT 33.4 % (35.0-51.0); MEAN CELL VOLUME 94.9 fl (80.0-94.0); MEAN CORPUSCULAR HEMOGLOBIN 30.5 pg (27.0-31.0); MEAN CORPUSCULAR HGB CONC 32.1 g/dL (33.0-37.0); RED CELL DISTRIBUTION WIDTH 15.6 % (11.5-14.5); WHITE BLOOD COUNT 10.5 K/uL (4.8-10.8)
[2017-04-19 05:34] LABS: ALB/GLOB RATIO 0.9 (1.0-2.1); BILIRUBIN,TOTAL 0.8 mg/dl (0.2-1.3); CALCIUM 8.4 mg/dL (8.4-10.2); POTASSIUM 3.3 MMOL/L (3.6-5.0); TOTAL PROTEIN 6.4 G/DL (6.3-8.2)
[2017-04-19] MEDS: Levalbuterol 0.63 MG/3 ML Inhal Soln UD INH PRN ×2 (07:29→19:39)
[2017-04-19] MEDS: Acetylcysteine 10% 4 ML IH SCH ×3 (07:29→19:39)
[2017-04-19] MEDS: Digoxin 125 mcg (0.125 mg) Tab PO SCH (08:59)
--- NOTE | 2017-04-19 10:12 | CP.PCM.PN ---
Subjective - Date & Time of Evaluation Date of Evaluation: 04/19/17 Time of Evaluation: 09:50 - Subjective Subjective: Clinically unchanged Remains sedated, orally intubated on vent support A Fib at 70-80 BPM (On metoprolol, cardizem and Dig) BP 128/74 mm Hg INR 1.4 today (On schedule for pleural tap) Have D/leeann Cardizem pH normal with persistent hypercapnoea GFR much improved today Will get dig level Objective - Vital Signs/Intake and Output Vital Signs (last 24 hours): Temp Pulse Resp BP Pulse Ox 98.5 F 97 H 10 L 151/70 H 92 L 04/19/17 07:58 04/19/17 10:00 04/19/17 10:00 04/19/17 10:00 04/19/17 10:00 Intake and Output: 04/19/17 04/19/17 06:59 18:59 Intake Total 1643 Output Total 1000 Balance 643 - Medications Medications: Current Medications Acetylcysteine (Mucomyst 10% 4ml) 2 ml IH RTID [facility] Last Admin: 04/19/17 07:29 Dose: 2 ml Digoxin (Lanoxin) 0.125 mg PO DAILY [facility] Last Admin: 04/19/17 08:59 Dose: 0.125 mg Famotidine (Pepcid) 20 mg GT BID [facility] Last Admin: 04/19/17 09:00 Dose: 20 mg Finasteride (Proscar) 5 mg PO DAILY [facility] Last Admin: 04/19/17 09:03 Dose: Not Given Furosemide (Lasix) 20 mg IVP DAILY [facility] Last Admin: 04/19/17 09:00 Dose: 20 mg Piperacillin Sod/Tazobactam (Sod 2.25 gm/ Sodium Chloride) 100 mls @ 100 mls/ hr IVPB Q8 [facility] Last Admin: 04/19/17 08:59 Dose: 100 mls/hr Lamotrigine (Lamictal) 25 mg PO BID [facility] Last Admin: 04/19/17 09:02 Dose: 25 mg Levalbuterol HCl (Xopenex) 0.63 mg INH RQ8 PRN PRN Reason: Shortness of Breath Last Admin: 04/19/17 07:29 Dose: 0.63 mg Metoprolol Tartrate (Lopressor) 100 mg GT Q12 [facility] Last Admin: 06/09/17 08:59 Dose: 100 mg Midazolam HCl (Versed Inj) 1 mg IV Q6H PRN PRN Reason: agitation/anxiety on vent Ondansetron HCl (Zofran Inj) 4 mg IVP Q6 PRN PRN Reason: Nausea/Vomiting - Labs Labs: 04/19/17 05:00 04/19/17 05:00 PT 15.6 Seconds (9.8-13.1) H D 04/19/17 05:00 INR 1.4 (0.9-1.2) H D 04/19/17 05:00 APTT 35.5 Seconds (25.6-37.1) 04/17/17 04:10
[2017-04-19] MEDS: Potassium CL 10 MEQ/50 ML 50 ML IVPB SCH ×3 (12:03→15:15)
--- NOTE | 2017-04-19 12:08 | RAD ---
HISTORY: Intubated COMPARISON: Multiple priors, most recent performed 04/18/17 TECHNIQUE: Chest, one view. FINDINGS: Endotracheal tube distance from the apoorva cannot be established due to limitations of the study. Nasogastric tube extends expected location of the stomach. LUNGS: [id number]-right layering pleural effusions and associated consolidations. No definite pneumothorax. Please note that chest x-ray has limited sensitivity for the detection of pulmonary masses. CARDIOVASCULAR: Cardiomegaly. OSSEOUS STRUCTURES: Degenerative changes of the spine and shoulders. Acromioclavicular arthropathy. VISUALIZED UPPER ABDOMEN: Unremarkable. OTHER FINDINGS: None. IMPRESSION: Endotracheal tube distance from the apoorva cannot be established due to limitations of the study. Nasogastric tube extends expected location of the stomach. [id number]-[id number]-right layering pleural effusions and associated consolidations. Cardiomegaly.
--- NOTE | 2017-04-19 12:10 | CP.PCM.PN ---
Subjective - Date & Time of Evaluation Date of Evaluation: 04/19/17 Time of Evaluation: 12:08 - Subjective Subjective: Patient remain on respirator at the bedside she stated he is opening his eyes at time Urine output improving almost 800 mL from this morning continue now Serum creatinine coming down and kidney function improving summary Acute kidney injury most likely related to multifactorial including congestive heart failure also respiratory failure and bilateral pleural effusion patient scheduled to have pleural tap. Continue monitoring kidney function Objective - Vital Signs/Intake and Output Vital Signs (last 24 hours): Temp Pulse Resp BP Pulse Ox 98.5 F 97 H 10 L 151/70 H 92 L 04/19/17 07:58 04/19/17 10:00 04/19/17 10:00 04/19/17 10:00 04/19/17 10:00 Intake and Output: 04/19/17 04/19/17 06:59 18:59 Intake Total 1643 100 Output Total 1000 900 Balance 643 -800 - Medications Medications: Current Medications Acetylcysteine (Mucomyst 10% 4ml) 2 ml IH RTID [facility] Last Admin: 04/19/17 07:29 Dose: 2 ml Digoxin (Lanoxin) 0.125 mg PO DAILY [facility] Last Admin: 04/19/17 08:59 Dose: 0.125 mg Famotidine (Pepcid) 20 mg GT BID [facility] Last Admin: 04/19/17 09:00 Dose: 20 mg Finasteride (Proscar) 5 mg PO DAILY [facility] Last Admin: 04/19/17 09:03 Dose: Not Given Furosemide (Lasix) 20 mg IVP DAILY [facility] Last Admin: 04/19/17 09:00 Dose: 20 mg Piperacillin Sod/Tazobactam (Sod 2.25 gm/ Sodium Chloride) 100 mls @ 100 mls/ hr IVPB Q8 [facility] Last Admin: 04/19/17 08:59 Dose: 100 mls/hr Potassium Chloride (Potassium Cl 10meq/50ml Sterile Water) 50 mls @ 50 mls/hr IVPB Q1 [facility] Stop: 04/19/17 14:59 Last Admin: 04/19/17 12:03 Dose: 50 mls/hr Lamotrigine (Lamictal) 25 mg PO BID [facility] Last Admin: 04/19/17 09:02 Dose: 25 mg Levalbuterol HCl (Xopenex) 0.63 mg INH RQ8 PRN PRN Reason: Shortness of Breath Last Admin: 04/19/17 07:29 Dose: 0.63 mg Metoprolol Tartrate (Lopressor) 100 mg GT Q12 [facility] Last Admin: 04/19/17 08:59 Dose: 100 mg Midazolam HCl (Versed Inj) 1 mg IV Q6H PRN PRN Reason: agitation/anxiety on vent Ondansetron HCl (Zofran Inj) 4 mg IVP Q6 PRN PRN Reason: Nausea/Vomiting - Labs Labs: 04/19/17 05:00 04/19/17 05:00 PT 15.6 Seconds (9.8-13.1) H D 04/19/17 05:00 INR 1.4 (0.9-1.2) H D 04/19/17 05:00 APTT 35.5 Seconds (25.6-37.1) 04/17/17 04:10 Assessment and Plan (1) CANDELARIA (acute kidney injury) Status: Acute (2) Acute respiratory failure Status: Acute
--- NOTE | 2017-04-19 13:58 | CP.PCM.PN ---
Subjective - Date & Time of Evaluation Date of Evaluation: 04/19/17 Time of Evaluation: 11:50 - Subjective Subjective: F/U Acute Respiratory Failure Intubated, Patient lethargic arousable , follows simple commands like open and close eyes , also reported by nurse open and closing hands on command ICU time: 35 min. Objective - Vital Signs/Intake and Output Vital Signs (last 24 hours): Temp Pulse Resp BP Pulse Ox 99.7 F H 103 H 20 152/83 H 99 04/19/17 12:00 04/19/17 12:00 04/19/17 12:00 04/19/17 12:00 04/19/17 12:00 Intake and Output: 04/19/17 04/19/17 06:59 18:59 Intake Total 1643 100 Output Total 1000 900 Balance 643 -800 - Medications Medications: Current Medications Acetylcysteine (Mucomyst 10% 4ml) 2 ml IH RTID [facility] Last Admin: 04/19/17 13:06 Dose: Not Given Digoxin (Lanoxin) 0.125 mg PO DAILY [facility] Last Admin: 04/19/17 08:59 Dose: 0.125 mg Famotidine (Pepcid) 20 mg GT BID [facility] Last Admin: 04/19/17 09:00 Dose: 20 mg Furosemide (Lasix) 20 mg IVP DAILY [facility] Last Admin: 04/19/17 09:00 Dose: 20 mg Home Med (Dutasteride [Avodart]) 0.5 mg PO DAILY [facility] Piperacillin Sod/Tazobactam (Sod 2.25 gm/ Sodium Chloride) 100 mls @ 100 mls/ hr IVPB Q8 [facility] Last Admin: 04/19/17 08:59 Dose: 100 mls/hr Potassium Chloride (Potassium Cl 10meq/50ml Sterile Water) 50 mls @ 50 mls/hr IVPB Q1 [facility] Stop: 04/19/17 14:59 Last Admin: 04/19/17 13:13 Dose: 50 mls/hr Lamotrigine (Lamictal) 25 mg PO BID [facility] Last Admin: 04/19/17 09:02 Dose: 25 mg Levalbuterol HCl (Xopenex) 0.63 mg INH RQ8 PRN PRN Reason: Shortness of Breath Last Admin: 04/19/17 07:29 Dose: 0.63 mg Metoprolol Tartrate (Lopressor) 100 mg GT Q12 [facility] Last Admin: 04/19/17 08:59 Dose: 100 mg Midazolam HCl (Versed Inj) 1 mg IV Q6H PRN PRN Reason: agitation/anxiety on vent Ondansetron HCl (Zofran Inj) 4 mg IVP Q6 PRN PRN Reason: Nausea/Vomiting - Labs Labs: 04/19/17 05:00 04/19/17 05:00 PT 15.6 Seconds (9.8-13.1) H D 04/19/17 05:00 INR 1.4 (0.9-1.2) H D 04/19/17 05:00 APTT 35.5 Seconds (25.6-37.1) 04/17/17 04:10 - Constitutional Appears: Chronically Ill - Head Exam Head Exam: NORMAL INSPECTION - Eye Exam Additional comments: Pupils reactive to light - ENT Exam Additional comments: Intubated - Neck Exam Neck Exam: Normal Inspection - Respiratory Exam Respiratory Exam: Decreased Breath Sounds (at bases), Rales (crackles at bases) - Cardiovascular Exam Cardiovascular Exam: Irregular Rhythm - GI/Abdominal Exam GI & Abdominal Exam: Soft, Normal Bowel Sounds - Extremities Exam Additional comments: Chronic skin changes L/E , edema - Back Exam Back Exam: NORMAL INSPECTION - Neurological Exam Additional comments: Intubated, lethargic, minimal spontaneous movements L/E - Psychiatric Exam Additional comments: Intubated - Skin Skin Exam: Warm Assessment and Plan (1) Acute respiratory failure Status: Acute (2) Acute on chronic diastolic (congestive) heart failure Status: Acute (3) Pleural effusion Status: Acute (4) CANDELARIA (acute kidney injury) Status: Acute (5) HTN (hypertension) Status: Chronic (6) A-fib Status: Chronic (7) Sleep apnea Status: Chronic (8) Lung nodule Status: Acute (9) Hypernatremia Status: Acute - Assessment and Plan (Free Text) Plan: INR 1.4 , to have US guided Thoracentesis today, contitnue rest of treatment
--- NOTE | 2017-04-19 14:30 | PN ---
DATE: 04/19/2017 LOCATION: The patient in ICU, bed 434. TIME SPENT: 35 minutes. The patient is seen and examined at the bedside along with patient's at bedside, discussed with patient's updated clinical status. Overnight remains intubated on AC 10, tidal volume 500, FiO2 of 60%, PEEP of 5, saturating 100%. Exhaled tidal volume 520, minute ventilation 8.2 liters, saturating 100%, mean airway pressure 8, end-tidal CO2 14, off sedation. Remains lethargic, reportedly opens eyes by . No distress noted on the ventilator. PHYSICAL EXAMINATION: VITAL SIGNS: Temperature 99.7, heart rate 103, blood pressure 158-83, mean arterial pressure 106, respiratory rate 20, saturating 99%. Intake 3803. Output 2500, positive 1303. HEAD, EYES, EARS, NOSE AND THROAT: Pupils reactive. Conjunctivae pink. Sclerae white. NECK: Supple. No carotid bruit. CHEST: Bilateral breath sounds diminished in intensity. HEART: Rhythm irregular. ABDOMEN: Bowel sounds present, soft. Liver and spleen not palpable. Bladder not distended. EXTREMITIES: Chronic skin changes. Dorsalis pedis palpable, reduced in intensity. NEUROLOGIC: Lethargic, slow to respond. CURRENT MEDICATIONS: Xopenex 0.63 mg q. 8 hours, Mucomyst 10% 2 mL 3 times daily, Lanoxin 0.125 mg daily, Pepcid 20 mg GT b.i.d., Lamictal 25 mg b.i.d., metoprolol 100 mg q. 12, Zosyn 2.25 grams IV q. 8 hours, potassium supplement; LABORATORY DATA: WBC 10.5, hemoglobin 10.7, hematocrit 33.4, platelet count 248. PT 15.6, INR 1.4. ABG: pH 7.45, pCO2 55, pO2 110, saturation 98% on AC/ PRVC 10, 500,60%, PEEP 5. SMA-7: Sodium 151, potassium 3.3, chloride 105, CO2 39, blood urea nitrogen 64, creatinine 2.1, glucose 120, calcium 8.4, total bilirubin 0.8, AST 41, ALT 29, alkaline phosphatase 100, total protein 6.4, albumin 3.1. Urinalysis is negative. Digoxin level 1.5. Microbiology: Blood culture, no growth reported. Tracheal aspirate normal linda. IMPRESSION: 1. Acute hypoxic respiratory failure on ventilator. No sedation needed as patient is lethargic. Weaning not attempted as the patient remains lethargic and is scheduled for thoracentesis today. 2. Suspected aspiration pneumonia. Continue Zosyn. 3. Rapid atrial fibrillation, chronic, on digoxin. Anticoagulation on hold for thoracentesis. INR currently 1.4, to have a thoracentesis today. 4. History of seizure disorder, on Lamictal. 5. Hypernatremia secondary to dehydration, improving on hypertonic saline and free water through nasogastric tube. Clive Buckner MD cc: [id number] TT: 04/19/2017 14:29:49 Confirmation # [id number] Dictation # [id number] MTDD
[2017-04-19] MEDS ORDERED: Lidocaine 1% Inj (20ml) ONE (15:15)
--- NOTE | 2017-04-19 15:56 | PCM.SURG1 ---
Surgeon's Initial Post Op Note - Surgeon's Notes Surgeon: Clifford Friedman MD Lpn Rn: NONE Type of Anesthesia: Local Pre-Operative Diagnosis: Pleural effusion Operative Findings: US showed large right effusion Post-Operative Diagnosis: Pleural effusion Operation Performed: US guided right thoracentesis. Specimen/Specimens Removed: 1260 cc of straw colored fluid Estimated Blood Loss: EBL {In ML}: 0 Blood Products Given: N/A Drains Used: No Drains Post-Op Condition: Poor Date of Surgery/Procedure: 04/19/17 Time of Surgery/Procedure: 15:50
--- NOTE | 2017-04-19 16:42 | RAD ---
HISTORY: Status post right thoracentesis COMPARISON: Chest x-ray performed 04/19/17 at 407 hours TECHNIQUE: Chest, one view. FINDINGS: Endotracheal tube terminates approximately 4.7 cm above the level the apoorva. Nasogastric tube terminates at the gastroesophageal junction with side hole noted more proximally ; this should be advanced. LUNGS: Layering left greater than right pleural effusions and associated consolidations. No definite pneumothorax. Please note that chest x-ray has limited sensitivity for the detection of pulmonary masses. CARDIOVASCULAR: Cardiomegaly. Ectatic aorta. Atherosclerotic calcifications. OSSEOUS STRUCTURES: Degenerative changes of the spine and shoulders. VISUALIZED UPPER ABDOMEN: Unremarkable. OTHER FINDINGS: None. IMPRESSION: Endotracheal tube terminates approximately 4.7 cm above the level the apoorva. Nasogastric tube terminates at the gastroesophageal junction with sidehole noted more proximally within the esophagus ; this should be advanced to terminate within the expected location of the stomach. Layering left greater than right pleural effusions and associated consolidations. Right-sided pleural effusion has decreased in extent since prior study. Cardiomegaly. Ectatic aorta. Atherosclerotic calcifications. Findings discussed with the patient's ANDREW Christianson on 04/19/17 at 4:39 p.m..
[2017-04-19] MEDS: Patient's Own Med (Dutasteride [Avodart] 0.5 MG) PO SCH (16:59)
[2017-04-19 17:49] LABS: BODY FLUID TYPE PLEURAL
[2017-04-19 18:34] LABS: BF GROSS APPEARANCE SL CLOUDY (CLEAR)
[2017-04-19 18:58] LABS: BODY FLUID TOTAL COUNT 100 (0-0)
[2017-04-20 05:17] LABS: ABG ALLEN TEST YES; ABG MECHANICAL RATE 1; ARTERIAL BLOOD GAS HCO3 35.8 mmol/L (21-28); ARTERIAL BLOOD GAS MODE A/C; ARTERIAL BLOOD GAS O2 CAPACITY 16.1 mL/dL (16-24); ARTERIAL BLOOD GAS O2 CONTENT 15.8 ML/dL (15-23); ARTERIAL BLOOD GAS PO2 171 mm/Hg (80-100); ARTERIAL BLOOD HGB O2 SAT 96.5 % (95.0-98.0); ATERIAL BLOOD GAS PEEP 5; CARBOXYHEMOGLOBIN 0.5 % (0.5-1.5); HHB 1.8 % (0.0-5.0); METHEMOGLOBIN 1.2 % (0.0-3.0)
[2017-04-20 06:19] LABS: BASO % 0.3 % (0.0-2.0); EOS # 0.3 K/uL (0.0-0.7); EOS % 2.4 % (0.0-4.0); HEMATOCRIT 33.5 % (35.0-51.0); LYMPH # 0.5 K/uL (1.0-4.3); LYMPH % 3.9 % (20.0-40.0); MEAN CELL VOLUME 94.7 fl (80.0-94.0); MEAN CORPUSCULAR HEMOGLOBIN 30.4 pg (27.0-31.0); MEAN CORPUSCULAR HGB CONC 32.1 g/dL (33.0-37.0); MEAN PLATELET VOLUME 7.9 fl (7.2-11.7); MONO # 0.9 K/uL (0.0-0.8); MONO % 6.9 % (0.0-10.0); NEUT # 10.7 K/uL (1.8-7.0); NEUT % 86.5 % (50.0-75.0); PLATELET COUNT 232 K/uL (130-400); RED CELL DISTRIBUTION WIDTH 14.9 % (11.5-14.5); WHITE BLOOD COUNT 12.4 K/uL (4.8-10.8)
[2017-04-20 06:38] LABS: ALB/GLOB RATIO 0.9 (1.0-2.1); BILIRUBIN,TOTAL 0.5 mg/dl (0.2-1.3); CALCIUM 7.9 mg/dL (8.4-10.2); POTASSIUM 3.4 MMOL/L (3.6-5.0); TOTAL PROTEIN 5.6 G/DL (6.3-8.2)
[2017-04-20] MEDS ORDERED: Dextrose 5%/0.9% NS 1,000 ML IV SCH (06:45)
[2017-04-20] MEDS: Levalbuterol 0.63 MG/3 ML Inhal Soln UD INH PRN ×3 (07:35→19:16)
[2017-04-20] MEDS: Acetylcysteine 10% 4 ML IH SCH ×3 (07:35→19:16)
--- NOTE | 2017-04-20 07:48 | CP.CCUPN ---
CCU Subjective - Physician Review Events Since Last Encounter (Free Text): 04/20/17 07:46 Patient on ventilator, on PRVC TV 500, RR 10, FIO2 40%, opens eyes to verbal stimuli, no pressors, no fever, events reviewed CCU Objective - Vital Signs / Intake & Output Vital Signs (Last 4 hours): Vital Signs Temp Pulse Resp BP Pulse Ox 04/20/17 07:38 98.5 F 107 H 31 H 143/71 98 04/20/17 06:56 102 H 15 146/75 100 04/20/17 06:00 93 H 14 154/87 H 100 04/20/17 05:00 104 H 11 L 154/87 H 100 04/20/17 04:00 98.2 F 96 H 12 160/97 H 100 Intake and Output (Last 8hrs): Intake & Output 04/19/17 04/20/17 04/20/17 22:59 06:59 14:59 Intake Total 1950 1640 Output Total 1760 601 Balance 190 1039 Intake: IV 600 360 Intake, Piggyback 300 100 Oral 0 180 Tube Feeding 500 250 Free Water Flush 550 750 Output: Urine 500 600 Urethral (Wang) 500 600 Stool 1 Other 1260 Other: # Bowel Movements 3 - Physical Exam Head: Positive for: Atraumatic, Normocephalic Pupils: Positive for: PERRL Conjunctiva: Positive for: Normal Mouth: Positive for: Moist Mucous Membranes Nose (External): Positive for: Atraumatic Nose (Internal): Positive for: Normal Inspection Neck: Positive for: Normal Range of Motion Respiratory/Chest: Positive for: Rhonchi Cardiovascular: Positive for: Irregular Rhythm Abdomen: Positive for: Normal Bowel Sounds Upper Extremity: Positive for: Normal Inspection Lower Extremity: Positive for: Normal Inspection Neurological: Positive for: Other (on ventilator, opens eyes to verbal stimuli) - Medications Active Medications: Active Medications Generic Name Dose Route Start Last Admin Trade Name Freq PRN Reason Stop Dose Admin Acetylcysteine 2 ml 04/16/17 20:00 04/20/17 07:35 Mucomyst 10% 4ml IH 2 ml RTID [facility] Administration Digoxin 0.125 mg 04/16/17 09:00 04/19/17 08:59 Lanoxin PO 0.125 mg DAILY [facility] Administration Famotidine 20 mg 04/18/17 17:00 04/19/17 17:00 Pepcid GT 20 mg BID [facility] Administration Furosemide 20 mg 04/18/17 09:00 04/19/17 09:00 Lasix IVP 20 mg DAILY [facility] Administration Home Med 0.5 mg 04/19/17 13:09 04/19/17 16:59 Dutasteride [Avodart] PO 0.5 mg DAILY [facility] Administration Piperacillin Sod/Tazobactam 100 mls @ 100 mls/hr 04/17/17 17:30 04/20/17 00: 01 Sod 2.25 gm/ Sodium Chloride IVPB 100 mls/hr Q8 [facility] Administration Dextrose/Sodium Chloride 1,000 mls @ 60 mls/hr 04/20/17 06:45 Dextrose 5%/0.9% Ns 1000 Ml IV 04/20/17 23:24 .[id number] [facility] Lamotrigine 25 mg 04/15/17 17:00 04/19/17 17:00 Lamictal PO Not Given BID [facility] Levalbuterol HCl 0.63 mg 04/15/17 15:25 04/20/17 07:35 Xopenex INH 0.63 mg RQ8 PRN Administration Shortness of Breath Metoprolol Tartrate 100 mg 04/17/17 11:58 04/19/17 21:02 Lopressor GT 100 mg Q12 [facility] Administration Midazolam HCl 1 mg 04/17/17 11:58 Versed Inj IV Q6H PRN agitation/anxiety on vent Ondansetron HCl 4 mg 04/18/17 15:49 Zofran Inj IVP Q6 PRN Nausea/Vomiting - Patient Studies Lab Studies: Lab Studies 04/20/17 04/20/17 04/20/17 Range/Units 06:00 05:30 05:30 WBC 12.4 H (4.8-10.8) K/uL RBC 3.54 L (4.40-5.90) Mil/uL Hgb 10.7 L (12.0-18.0) g/dL Hct 33.5 L (35.0-51.0) % MCV 94.7 H (80.0-94.0) fl MCH 30.4 (27.0-31.0) pg MCHC 32.1 L (33.0-37.0) g/dL RDW 14.9 H (11.5-14.5) % Plt Count 232 (130-400) K/uL MPV 7.9 (7.2-11.7) fl Neut % (Auto) 86.5 H (50.0-75.0) % Lymph % (Auto) 3.9 L (20.0-40.0) % Graves % (Auto) 6.9 (0.0-10.0) % Eos % (Auto) 2.4 (0.0-4.0) % Baso % (Auto) 0.3 (0.0-2.0) % Neut # 10.7 H (1.8-7.0) K/uL Lymph # 0.5 L (1.0-4.3) K/uL Graves # 0.9 H (0.0-0.8) K/uL Eos # 0.3 (0.0-0.7) K/uL Baso # 0.0 (0.0-0.2) K/uL PT (9.8-13.1) Seconds INR (0.9-1.2) pCO2 50 H (35-45) mm/Hg pO2 171 H (80-100) mm/Hg HCO3 35.8 H (21-28) mmol/L ABG pH 7.50 H (7.35-7.45) ABG Total CO2 40.5 H (22-28) mmol/L ABG O2 Saturation 98.2 H (95-98) % ABG O2 Content 15.8 (15-23) ML/dL ABG Base Excess 14.0 H (-2.0-3.0) mmol/L ABG Hemoglobin 11.4 L (11.7-17.4) g/dL ABG Carboxyhemoglobin 0.5 (0.5-1.5) % POC ABG HHb (Measured) 1.8 (0.0-5.0) % ABG Methemoglobin 1.2 (0.0-3.0) % ABG O2 Capacity 16.1 (16-24) mL/dL Broderick Test Yes A-a O2 Difference 194.0 mm/Hg Hgb O2 Saturation 96.5 (95.0-98.0) % Vent Mode A/c Mechanical Rate 1 FiO2 60.0 % Tidal Volume 500 PEEP 5 Sodium (132-148) mmol/l Potassium (3.6-5.0) MMOL/L Chloride (98-107) mmol/L Carbon Dioxide (22-30) mmol/L Anion Gap (10-20) BUN (9-20) mg/dl Creatinine (0.8-1.5) mg/dL Est GFR ( Amer) Est GFR (Non-Af Amer) Random Glucose (75-110) mg/dL Calcium (8.4-10.2) mg/dL Total Bilirubin (0.2-1.3) mg/dl AST (17-59) U/L ALT (21-72) U/L Alkaline Phosphatase (38-126) U/L Total Protein (6.3-8.2) G/DL Albumin (3.5-5.0) g/dL Globulin (2.2-3.9) gm/dL Albumin/Globulin Ratio (1.0-2.1) Fluid Source Fluid Appearance (CLEAR) Fluid WBC (0.0-300.0) /mm3 Fluid RBC (0.0-0.0) /mm3 Fluid Tot Cell Count (0-0) Fluid Neutrophils (0-0) % Fluid Lymphocytes (0-0) % Fld Monocyte/Macrophag (0-0) % Fluid Glucose (NONE ESTABLISHED) mg/dL Fluid Total Protein (NONE ESTABLISHED) g/dL Fluid LDH (NONE ESTABLISHED) IU Fluid Comment Digoxin 1.6 (0.8-2.0) ng/mL 04/20/17 04/20/17 04/19/17 Range/Units 05:30 05:30 17:48 WBC (4.8-10.8) K/uL RBC (4.40-5.90) Mil/uL Hgb (12.0-18.0) g/dL Hct (35.0-51.0) % MCV (80.0-94.0) fl MCH (27.0-31.0) pg MCHC (33.0-37.0) g/dL RDW (11.5-14.5) % Plt Count (130-400) K/uL MPV (7.2-11.7) fl Neut % (Auto) (50.0-75.0) % Lymph % (Auto) (20.0-40.0) % Graves % (Auto) (0.0-10.0) % Eos % (Auto) (0.0-4.0) % Baso % (Auto) (0.0-2.0) % Neut # (1.8-7.0) K/uL Lymph # (1.0-4.3) K/uL Graves # (0.0-0.8) K/uL Eos # (0.0-0.7) K/uL Baso # (0.0-0.2) K/uL PT 16.4 H (9.8-13.1) Seconds INR 1.4 H (0.9-1.2) pCO2 (35-45) mm/Hg pO2 (80-100) mm/Hg HCO3 (21-28) mmol/L ABG pH (7.35-7.45) ABG Total CO2 (22-28) mmol/L ABG O2 Saturation (95-98) % ABG O2 Content (15-23) ML/dL ABG Base Excess (-2.0-3.0) mmol/L ABG Hemoglobin (11.7-17.4) g/dL ABG Carboxyhemoglobin (0.5-1.5) % POC ABG HHb (Measured) (0.0-5.0) % ABG Methemoglobin (0.0-3.0) % ABG O2 Capacity (16-24) mL/dL Broderick Test A-a O2 Difference mm/Hg Hgb O2 Saturation (95.0-98.0) % Vent Mode Mechanical Rate FiO2 % Tidal Volume PEEP Sodium 146 (132-148) mmol/l Potassium 3.4 L (3.6-5.0) MMOL/L Chloride 101 (98-107) mmol/L Carbon Dioxide 36 H (22-30) mmol/L Anion Gap 12 (10-20) BUN 52 H (9-20) mg/dl Creatinine 1.6 H (0.8-1.5) mg/dL Est GFR ( Amer) 51 Est GFR (Non-Af Amer) 42 Random Glucose 180 H (75-110) mg/dL Calcium 7.9 L (8.4-10.2) mg/dL Total Bilirubin 0.5 (0.2-1.3) mg/dl AST 35 (17-59) U/L ALT 26 (21-72) U/L Alkaline Phosphatase 102 (38-126) U/L Total Protein 5.6 L (6.3-8.2) G/DL Albumin 2.6 L (3.5-5.0) g/dL Globulin 3.0 (2.2-3.9) gm/dL Albumin/Globulin Ratio 0.9 L (1.0-2.1) Fluid Source Fluid Appearance (CLEAR) Fluid WBC (0.0-300.0) /mm3 Fluid RBC (0.0-0.0) /mm3 Fluid Tot Cell Count (0-0) Fluid Neutrophils (0-0) % Fluid Lymphocytes (0-0) % Fld Monocyte/Macrophag (0-0) % Fluid Glucose 115 (NONE ESTABLISHED) mg/dL Fluid Total Protein 2.4 (NONE ESTABLISHED) g/dL Fluid LDH 463 (NONE ESTABLISHED) IU Fluid Comment Digoxin (0.8-2.0) ng/mL 04/19/17 Range/Units 17:48 WBC (4.8-10.8) K/uL RBC (4.40-5.90) Mil/uL Hgb (12.0-18.0) g/dL Hct (35.0-51.0) % MCV (80.0-94.0) fl MCH (27.0-31.0) pg MCHC (33.0-37.0) g/dL RDW (11.5-14.5) % Plt Count (130-400) K/uL MPV (7.2-11.7) fl Neut % (Auto) (50.0-75.0) % Lymph % (Auto) (20.0-40.0) % Graves % (Auto) (0.0-10.0) % Eos % (Auto) (0.0-4.0) % Baso % (Auto) (0.0-2.0) % Neut # (1.8-7.0) K/uL Lymph # (1.0-4.3) K/uL Graves # (0.0-0.8) K/uL Eos # (0.0-0.7) K/uL Baso # (0.0-0.2) K/uL PT (9.8-13.1) Seconds INR (0.9-1.2) pCO2 (35-45) mm/Hg pO2 (80-100) mm/Hg HCO3 (21-28) mmol/L ABG pH (7.35-7.45) ABG Total CO2 (22-28) mmol/L ABG O2 Saturation (95-98) % ABG O2 Content (15-23) ML/dL ABG Base Excess (-2.0-3.0) mmol/L ABG Hemoglobin (11.7-17.4) g/dL ABG Carboxyhemoglobin (0.5-1.5) % POC ABG HHb (Measured) (0.0-5.0) % ABG Methemoglobin (0.0-3.0) % ABG O2 Capacity (16-24) mL/dL Broderick Test A-a O2 Difference mm/Hg Hgb O2 Saturation (95.0-98.0) % Vent Mode Mechanical Rate FiO2 % Tidal Volume PEEP Sodium (132-148) mmol/l Potassium (3.6-5.0) MMOL/L Chloride (98-107) mmol/L Carbon Dioxide (22-30) mmol/L Anion Gap (10-20) BUN (9-20) mg/dl Creatinine (0.8-1.5) mg/dL Est GFR ( Amer) Est GFR (Non-Af Amer) Random Glucose (75-110) mg/dL Calcium (8.4-10.2) mg/dL Total Bilirubin (0.2-1.3) mg/dl AST (17-59) U/L ALT (21-72) U/L Alkaline Phosphatase (38-126) U/L Total Protein (6.3-8.2) G/DL Albumin (3.5-5.0) g/dL Globulin (2.2-3.9) gm/dL Albumin/Globulin Ratio (1.0-2.1) Fluid Source Pleural Fluid Appearance Sl cloudy (CLEAR) Fluid WBC 190.0 (0.0-300.0) /mm3 Fluid RBC 1160.0 H (0.0-0.0) /mm3 Fluid Tot Cell Count 100 H (0-0) Fluid Neutrophils 63.0 H (0-0) % Fluid Lymphocytes 13.0 H (0-0) % Fld Monocyte/Macrophag 24 H (0-0) % Fluid Glucose (NONE ESTABLISHED) mg/dL Fluid Total Protein (NONE ESTABLISHED) g/dL Fluid LDH (NONE ESTABLISHED) IU Fluid Comment Na Digoxin (0.8-2.0) ng/mL Laboratory Results - last 24 hr 04/19/17 04/19/17 04/20/17 17:48 17:48 05:30 WBC RBC Hgb Hct MCV MCH MCHC RDW Plt Count MPV Neut % (Auto) Lymph % (Auto) Graves % (Auto) Eos % (Auto) Baso % (Auto) Neut # Lymph # Graves # Eos # Baso # PT 16.4 H INR 1.4 H pCO2 pO2 HCO3 ABG pH ABG Total CO2 ABG O2 Saturation ABG O2 Content ABG Base Excess ABG Hemoglobin ABG Carboxyhemoglobin POC ABG HHb (Measured) ABG Methemoglobin ABG O2 Capacity Broderick Test A-a O2 Difference Hgb O2 Saturation Vent Mode Mechanical Rate FiO2 Tidal Volume PEEP Sodium Potassium Chloride Carbon Dioxide Anion Gap BUN Creatinine Est GFR ( Amer) Est GFR (Non-Af Amer) Random Glucose Calcium Total Bilirubin AST ALT Alkaline Phosphatase Total Protein Albumin Globulin Albumin/Globulin Ratio Fluid Source Pleural Fluid Appearance Sl cloudy Fluid WBC 190.0 Fluid RBC 1160.0 H Fluid Tot Cell Count 100 H Fluid Neutrophils 63.0 H Fluid Lymphocytes 13.0 H Fld Monocyte/Macrophag 24 H Fluid Glucose 115 Fluid Total Protein 2.4 Fluid LDH 463 Fluid Comment Na Digoxin 04/20/17 04/20/17 04/20/17 05:30 05:30 05:30 WBC 12.4 H RBC 3.54 L Hgb 10.7 L Hct 33.5 L MCV 94.7 H MCH 30.4 MCHC 32.1 L RDW 14.9 H Plt Count 232 MPV 7.9 Neut % (Auto) 86.5 H Lymph % (Auto) 3.9 L Graves % (Auto) 6.9 Eos % (Auto) 2.4 Baso % (Auto) 0.3 Neut # 10.7 H Lymph # 0.5 L Graves # 0.9 H Eos # 0.3 Baso # 0.0 PT INR pCO2 pO2 HCO3 ABG pH ABG Total CO2 ABG O2 Saturation ABG O2 Content ABG Base Excess ABG Hemoglobin ABG Carboxyhemoglobin POC ABG HHb (Measured) ABG Methemoglobin ABG O2 Capacity Broderick Test A-a O2 Difference Hgb O2 Saturation Vent Mode Mechanical Rate FiO2 Tidal Volume PEEP Sodium 146 Potassium 3.4 L Chloride 101 Carbon Dioxide 36 H Anion Gap 12 BUN 52 H Creatinine 1.6 H Est GFR ( Amer) 51 Est GFR (Non-Af Amer) 42 Random Glucose 180 H Calcium 7.9 L Total Bilirubin 0.5 AST 35 ALT 26 Alkaline Phosphatase 102 Total Protein 5.6 L Albumin 2.6 L Globulin 3.0 Albumin/Globulin Ratio 0.9 L Fluid Source Fluid Appearance Fluid WBC Fluid RBC Fluid Tot Cell Count Fluid Neutrophils Fluid Lymphocytes Fld Monocyte/Macrophag Fluid Glucose Fluid Total Protein Fluid LDH Fluid Comment Digoxin 1.6 04/20/17 06:00 WBC RBC Hgb Hct MCV MCH MCHC RDW Plt Count MPV Neut % (Auto) Lymph % (Auto) Graves % (Auto) Eos % (Auto) Baso % (Auto) Neut # Lymph # Graves # Eos # Baso # PT INR pCO2 50 H pO2 171 H HCO3 35.8 H ABG pH 7.50 H ABG Total CO2 40.5 H ABG O2 Saturation 98.2 H ABG O2 Content 15.8 ABG Base Excess 14.0 H ABG Hemoglobin 11.4 L ABG Carboxyhemoglobin 0.5 POC ABG HHb (Measured) 1.8 ABG Methemoglobin 1.2 ABG O2 Capacity 16.1 Broderick Test Yes A-a O2 Difference 194.0 Hgb O2 Saturation 96.5 Vent Mode A/c Mechanical Rate 1 FiO2 60.0 Tidal Volume 500 PEEP 5 Sodium Potassium Chloride Carbon Dioxide Anion Gap BUN Creatinine Est GFR ( Amer) Est GFR (Non-Af Amer) Random Glucose Calcium Total Bilirubin AST ALT Alkaline Phosphatase Total Protein Albumin Globulin Albumin/Globulin Ratio Fluid Source Fluid Appearance Fluid WBC Fluid RBC Fluid Tot Cell Count Fluid Neutrophils Fluid Lymphocytes Fld Monocyte/Macrophag Fluid Glucose Fluid Total Protein Fluid LDH Fluid Comment Digoxin Fingerstick Blood Sugar Results: 202 Assessment/Plan - Assessment and Plan (Free Text) Assessment: A/P Respiratory failure, ?aspiration pneumonia, pleural effusion, A Fib, seizer disorder, CHF, SUSAN, renal insufficiency, h/o HTN - Ventilatory support - Weaning as tolerated - Pulmonary toilets - Continue meds - Heart rate control - DVT prophylaxis Critical care 40 min
[2017-04-20] MEDS: Digoxin 125 mcg (0.125 mg) Tab PO SCH (08:48)
[2017-04-20] MEDS: Patient's Own Med (Dutasteride [Avodart] 0.5 MG) PO SCH (08:48)
--- NOTE | 2017-04-20 12:18 | CP.PCM.PN ---
Subjective - Date & Time of Evaluation Date of Evaluation: 04/20/17 Time of Evaluation: 11:55 - Subjective Subjective: Intubated on ventilator support Objective - Vital Signs/Intake and Output Vital Signs (last 24 hours): Temp Pulse Resp BP Pulse Ox 98.5 F 107 H 31 H 143/71 98 04/20/17 07:38 04/20/17 07:38 04/20/17 07:38 04/20/17 07:38 04/20/17 07:38 Intake and Output: 04/20/17 04/20/17 06:59 18:59 Intake Total 2000 Output Total 601 Balance 1399 - Medications Medications: Current Medications Acetylcysteine (Mucomyst 10% 4ml) 2 ml IH RTID [facility] Last Admin: 04/20/17 07:35 Dose: 2 ml Digoxin (Lanoxin) 0.125 mg PO DAILY [facility] Last Admin: 04/19/17 08:59 Dose: 0.125 mg Famotidine (Pepcid) 20 mg GT BID [facility] Last Admin: 04/19/17 17:00 Dose: 20 mg Furosemide (Lasix) 20 mg IVP DAILY [facility] Last Admin: 04/19/17 09:00 Dose: 20 mg Home Med (Dutasteride [Avodart]) 0.5 mg PO DAILY [facility] Last Admin: 04/19/17 16:59 Dose: 0.5 mg Piperacillin Sod/Tazobactam (Sod 2.25 gm/ Sodium Chloride) 100 mls @ 100 mls/ hr IVPB Q8 [facility] Last Admin: 04/20/17 00:01 Dose: 100 mls/hr Dextrose/Sodium Chloride (Dextrose 5%/0.9% Ns 1000 Ml) 1,000 mls @ 60 mls/hr IV .[id number] [facility] Stop: 04/20/17 23:24 Last Admin: 04/20/17 08:04 Dose: 60 mls/hr Lamotrigine (Lamictal) 25 mg PO BID [facility] Last Admin: 04/19/17 17:00 Dose: Not Given Levalbuterol HCl (Xopenex) 0.63 mg INH RQ8 PRN PRN Reason: Shortness of Breath Last Admin: 04/20/17 07:35 Dose: 0.63 mg Metoprolol Tartrate (Lopressor) 100 mg GT Q12 [facility] Last Admin: 04/19/17 21:02 Dose: 100 mg Ondansetron HCl (Zofran Inj) 4 mg IVP Q6 PRN PRN Reason: Nausea/Vomiting - Labs Labs: 04/20/17 05:30 04/20/17 05:30 PT 16.4 Seconds (9.8-13.1) H 04/20/17 05:30 INR 1.4 (0.9-1.2) H 04/20/17 05:30 APTT 35.5 Seconds (25.6-37.1) 04/17/17 04:10 - Respiratory Exam Additional comments: Lungs clear anteriorly - Cardiovascular Exam Cardiovascular Exam: Irregular Rhythm - GI/Abdominal Exam GI & Abdominal Exam: Soft - Extremities Exam Additional comments: Extrem .are edematous Assessment and Plan - Assessment and Plan (Free Text) Assessment: [place]. Renal function continues to improve Respiratory failure Plan: Continue to monitor renal function Urine out put remains good
[2017-04-20 12:35] LABS: EOSINOPHIL 2 % (0-7); NEUTROPHIL 85 % (42-75); TOTAL CELLS COUNTED 100
--- NOTE | 2017-04-20 13:08 | RAD ---
HISTORY: intubated COMPARISON: 04/19/2017 FINDINGS: LUNGS: Diffuse bilateral interstitial infiltrates and effusions, unchanged compatible with CHF. PLEURA: See above CARDIOVASCULAR: Normal. OSSEOUS STRUCTURES: No significant abnormalities. VISUALIZED UPPER ABDOMEN: Normal. OTHER FINDINGS: ETT and NGT in place IMPRESSION: No interval change in diffuse bilateral infiltrates and effusions.
--- NOTE | 2017-04-20 14:10 | CP.PCM.PN ---
Subjective - Date & Time of Evaluation Date of Evaluation: 04/20/17 Time of Evaluation: 11:45 - Subjective Subjective: F/U Respiratory Failure Eyes open, follows commands like squeeze the hand , Patient's at bedside ICU time: 34 min. Objective - Vital Signs/Intake and Output Vital Signs (last 24 hours): Temp Pulse Resp BP Pulse Ox 98.5 F 107 H 31 H 143/71 98 04/20/17 07:38 04/20/17 07:38 04/20/17 07:38 04/20/17 07:38 04/20/17 07:38 Intake and Output: 04/20/17 04/20/17 06:59 18:59 Intake Total 2000 Output Total 601 Balance 1399 - Medications Medications: Current Medications Acetylcysteine (Mucomyst 10% 4ml) 2 ml IH RTID [facility] Last Admin: 04/20/17 07:35 Dose: 2 ml Digoxin (Lanoxin) 0.125 mg PO DAILY [facility] Last Admin: 04/19/17 08:59 Dose: 0.125 mg Famotidine (Pepcid) 20 mg GT BID [facility] Last Admin: 04/19/17 17:00 Dose: 20 mg Furosemide (Lasix) 20 mg IVP DAILY [facility] Last Admin: 04/19/17 09:00 Dose: 20 mg Home Med (Dutasteride [Avodart]) 0.5 mg PO DAILY [facility] Last Admin: 04/19/17 16:59 Dose: 0.5 mg Piperacillin Sod/Tazobactam (Sod 2.25 gm/ Sodium Chloride) 100 mls @ 100 mls/ hr IVPB Q8 [facility] Last Admin: 04/20/17 00:01 Dose: 100 mls/hr Dextrose/Sodium Chloride (Dextrose 5%/0.9% Ns 1000 Ml) 1,000 mls @ 60 mls/hr IV .[id number] [facility] Stop: 04/20/17 23:24 Last Admin: 04/20/17 08:04 Dose: 60 mls/hr Lamotrigine (Lamictal) 25 mg PO BID [facility] Last Admin: 04/19/17 17:00 Dose: Not Given Levalbuterol HCl (Xopenex) 0.63 mg INH RQ8 PRN PRN Reason: Shortness of Breath Last Admin: 04/20/17 07:35 Dose: 0.63 mg Metoprolol Tartrate (Lopressor) 100 mg GT Q12 [facility] Last Admin: 04/19/17 21:02 Dose: 100 mg Ondansetron HCl (Zofran Inj) 4 mg IVP Q6 PRN PRN Reason: Nausea/Vomiting - Labs Labs: 04/20/17 05:30 04/20/17 05:30 PT 16.4 Seconds (9.8-13.1) H 04/20/17 05:30 INR 1.4 (0.9-1.2) H 04/20/17 05:30 APTT 35.5 Seconds (25.6-37.1) 04/17/17 04:10 - Constitutional Appears: Chronically Ill - Head Exam Head Exam: NORMAL INSPECTION - Eye Exam Additional comments: Pupils reactive to light - ENT Exam Additional comments: intubated - Neck Exam Neck Exam: Normal Inspection - Respiratory Exam Respiratory Exam: Decreased Breath Sounds (at bases L>R) - Cardiovascular Exam Cardiovascular Exam: Irregular Rhythm - GI/Abdominal Exam GI & Abdominal Exam: Soft, Normal Bowel Sounds - Extremities Exam Additional comments: Legs edema, chronic skin changes L/E - Neurological Exam Additional comments: Intubated, eyes open , follows simple commands , movements with U/E L/E - Psychiatric Exam Additional comments: Intubated. - Skin Skin Exam: Warm Assessment and Plan (1) Acute respiratory failure Status: Acute (2) Acute on chronic diastolic (congestive) heart failure Status: Acute (3) Pleural effusion Status: Acute (4) CANDELARIA (acute kidney injury) Status: Acute (5) HTN (hypertension) Status: Chronic (6) A-fib Status: Chronic (7) Sleep apnea Status: Chronic (8) Lung nodule Status: Acute (9) Hypernatremia Status: Acute - Assessment and Plan (Free Text) Plan: s/p R Thoracentesis 1260 cc , continie ventilatory support , attempt of weaning , f/u serial CXR to asses the need of L Thoracentesis , continue Zosyn , Xopenex , Mucomyst , Lasix and rest of treatment
[2017-04-21 06:08] LABS: ABG ALLEN TEST YES; ABG MECHANICAL RATE 10; ARTERIAL BLOOD GAS HCO3 34.2 mmol/L (21-28); ARTERIAL BLOOD GAS MODE A/C; ARTERIAL BLOOD GAS O2 CAPACITY 16.7 mL/dL (16-24); ARTERIAL BLOOD GAS O2 CONTENT 16.2 ML/dL (15-23); ARTERIAL BLOOD GAS PH 7.46 (7.35-7.45); ARTERIAL BLOOD GAS PO2 84 mm/Hg (80-100); ARTERIAL BLOOD HGB O2 SAT 94.9 % (95.0-98.0); ATERIAL BLOOD GAS PEEP 5; HHB 3.1 % (0.0-5.0)
--- NOTE | 2017-04-21 07:17 | CP.CCUPN ---
CCU Subjective - Physician Review Events Since Last Encounter (Free Text): 04/21/17 07:17 Patient on ventilator, on PRVC TV 500, RR 10, FIO2 40%, opens eyes to verbal stimuli, no pressors, no fever, events reviewed CCU Objective - Vital Signs / Intake & Output Vital Signs (Last 4 hours): Vital Signs Temp Pulse Resp BP Pulse Ox 04/21/17 06:00 110 H 29 H 151/95 H 100 04/21/17 04:00 98.1 F 113 H 28 H 124/71 99 Intake and Output (Last 8hrs): Intake & Output 04/20/17 04/21/17 04/21/17 22:59 06:59 14:59 Intake Total 2310 980 Output Total 1200 850 Balance 1110 130 Intake: IV 960 360 Intake, Piggyback 100 120 Oral 0 Tube Feeding 750 400 TPN/PPN 100 Free Water Flush 500 Output: Urine 1200 850 Urethral (Wang) 1200 850 Other: # Bowel Movements 1 - Physical Exam Head: Positive for: Atraumatic, Normocephalic Pupils: Positive for: PERRL Conjunctiva: Positive for: Normal Mouth: Positive for: Moist Mucous Membranes Nose (External): Positive for: Atraumatic Nose (Internal): Positive for: Normal Inspection Neck: Positive for: Normal Range of Motion Respiratory/Chest: Positive for: Rhonchi Cardiovascular: Positive for: Irregular Rhythm Abdomen: Positive for: Normal Bowel Sounds Upper Extremity: Positive for: Normal Inspection Lower Extremity: Positive for: Normal Inspection Neurological: Positive for: Other (on ventilator, opens eyes to verbal stimuli) - Medications Active Medications: Active Medications Generic Name Dose Route Start Last Admin Trade Name Billyq PRN Reason Stop Dose Admin Acetylcysteine 2 ml 04/16/17 20:00 04/20/17 19:16 Mucomyst 10% 4ml IH 2 ml RTID [facility] Administration Digoxin 0.125 mg 04/16/17 09:00 04/20/17 08:48 Lanoxin PO 0.125 mg DAILY [facility] Administration Famotidine 20 mg 04/18/17 17:00 04/20/17 16:05 Pepcid GT 20 mg BID [facility] Administration Furosemide 20 mg 04/18/17 09:00 04/20/17 09:00 Lasix IVP 20 mg DAILY [facility] Administration Home Med 0.5 mg 04/19/17 13:09 04/20/17 08:48 Dutasteride [Avodart] PO 0.5 mg DAILY [facility] Administration Piperacillin Sod/Tazobactam 100 mls @ 100 mls/hr 04/17/17 17:30 04/21/17 01: 00 Sod 2.25 gm/ Sodium Chloride IVPB 100 mls/hr Q8 [facility] Administration Lamotrigine 25 mg 04/15/17 17:00 04/20/17 16:03 Lamictal PO 25 mg BID [facility] Administration Levalbuterol HCl 0.63 mg 04/15/17 15:25 04/20/17 19:16 Xopenex INH 0.63 mg RQ8 PRN Administration Shortness of Breath Metoprolol Tartrate 100 mg 04/17/17 11:58 04/20/17 22:00 Lopressor GT 100 mg Q12 [facility] Administration Ondansetron HCl 4 mg 04/18/17 15:49 Zofran Inj IVP Q6 PRN Nausea/Vomiting - Patient Studies Lab Studies: Lab Studies 04/21/17 04/20/17 Range/Units 06:00 05:30 Neutrophils % (Manual) 85 H (42-75) % Lymphocytes % (Manual) 5 L (20-50) % Monocytes % (Manual) 8 (0-10) % Eosinophils % (Manual) 2 (0-7) % Platelet Estimate Normal (NORMAL) Hypochromasia (manual) Slight Anisocytosis (manual) Slight pCO2 53 H (35-45) mm/Hg pO2 84 (80-100) mm/Hg HCO3 34.2 H (21-28) mmol/L ABG pH 7.46 H (7.35-7.45) ABG Total CO2 39.3 H (22-28) mmol/L ABG O2 Saturation 96.8 (95-98) % ABG O2 Content 16.2 (15-23) ML/dL ABG Base Excess 12.0 H (-2.0-3.0) mmol/L ABG Hemoglobin 12.1 (11.7-17.4) g/dL ABG Carboxyhemoglobin 1.0 (0.5-1.5) % POC ABG HHb (Measured) 3.1 (0.0-5.0) % ABG Methemoglobin 1.0 (0.0-3.0) % ABG O2 Capacity 16.7 (16-24) mL/dL Broderick Test Yes A-a O2 Difference 135.0 mm/Hg Hgb O2 Saturation 94.9 L (95.0-98.0) % Vent Mode A/c Mechanical Rate 10 FiO2 40.0 % Tidal Volume 500 PEEP 5 Laboratory Results - last 24 hr 04/20/17 04/21/17 05:30 06:00 Neutrophils % (Manual) 85 H Lymphocytes % (Manual) 5 L Monocytes % (Manual) 8 Eosinophils % (Manual) 2 Platelet Estimate Normal Hypochromasia (manual) Slight Anisocytosis (manual) Slight pCO2 53 H pO2 84 HCO3 34.2 H ABG pH 7.46 H ABG Total CO2 39.3 H ABG O2 Saturation 96.8 ABG O2 Content 16.2 ABG Base Excess 12.0 H ABG Hemoglobin 12.1 ABG Carboxyhemoglobin 1.0 POC ABG HHb (Measured) 3.1 ABG Methemoglobin 1.0 ABG O2 Capacity 16.7 Broderick Test Yes A-a O2 Difference 135.0 Hgb O2 Saturation 94.9 L Vent Mode A/c Mechanical Rate 10 FiO2 40.0 Tidal Volume 500 PEEP 5 Fingerstick Blood Sugar Results: 202 Assessment/Plan - Assessment and Plan (Free Text) Assessment: A/P Respiratory failure, ?aspiration pneumonia, pleural effusion, A Fib, seizer disorder, CHF, SUSAN, renal insufficiency, h/o HTN - Ventilatory support - Weaning as tolerated - Pulmonary toilets - Continue meds - Heart rate control - DVT prophylaxis Critical care 35 min
[2017-04-21 07:25] LABS: ALB/GLOB RATIO 0.9 (1.0-2.1); BILIRUBIN,TOTAL 0.6 mg/dl (0.2-1.3); CALCIUM 7.8 mg/dL (8.4-10.2); POTASSIUM 3.6 MMOL/L (3.6-5.0); TOTAL PROTEIN 5.8 G/DL (6.3-8.2)
[2017-04-21] MEDS: Levalbuterol 0.63 MG/3 ML Inhal Soln UD INH PRN ×2 (07:59→19:51)
[2017-04-21] MEDS: Acetylcysteine 10% 4 ML IH SCH ×3 (07:59→19:51)
[2017-04-21] MEDS: Digoxin 125 mcg (0.125 mg) Tab PO SCH (08:22)
[2017-04-21] MEDS: Patient's Own Med (Dutasteride [Avodart] 0.5 MG) PO SCH (08:22)
--- NOTE | 2017-04-21 11:25 | RAD ---
HISTORY: Pt's intubated, check ETT placement COMPARISON: No prior. FINDINGS: LUNGS: See below. PLEURA: Bilateral infiltrates and effusions. CARDIOVASCULAR: Cardiomegaly. OSSEOUS STRUCTURES: No significant abnormalities. VISUALIZED UPPER ABDOMEN: Normal. OTHER FINDINGS: NG tube in place. IMPRESSION: Bilateral infiltrates and effusions compatible with CHF.
[2017-04-21] MEDS ORDERED: Sodium Chloride 3% for Inhalation 4 ML VIAL.NEB IH PRN (12:48)
[2017-04-21] MEDS: Dextrose 5%/0.9% NS 1,000 ML IV SCH (12:58)
--- NOTE | 2017-04-21 13:24 | CP.PCM.PN ---
Subjective - Date & Time of Evaluation Date of Evaluation: 04/21/17 Time of Evaluation: 12:45 - Subjective Subjective: F/U Respiratory failure Pt extubated, smiling, follows commands, having dry cough, at bedside. Objective - Vital Signs/Intake and Output Vital Signs (last 24 hours): Temp Pulse Resp BP Pulse Ox 98.3 F 100 H 25 H 130/76 100 04/21/17 08:00 04/21/17 10:00 04/21/17 10:00 04/21/17 10:00 04/21/17 10:00 Intake and Output: 04/21/17 04/21/17 06:59 18:59 Intake Total 1620 760 Output Total 850 Balance 770 760 - Medications Medications: Current Medications Acetylcysteine (Mucomyst 10% 4ml) 2 ml IH RTID [facility] Last Admin: 04/21/17 07:59 Dose: 2 ml Digoxin (Lanoxin) 0.125 mg PO DAILY [facility] Last Admin: 04/21/17 08:22 Dose: 0.125 mg Famotidine (Pepcid) 20 mg GT BID [facility] Last Admin: 04/21/17 08:22 Dose: 20 mg Furosemide (Lasix) 20 mg IVP DAILY [facility] Last Admin: 04/21/17 08:29 Dose: 20 mg Home Med (Dutasteride [Avodart]) 0.5 mg PO DAILY [facility] Last Admin: 04/21/17 08:22 Dose: 0.5 mg Piperacillin Sod/Tazobactam (Sod 2.25 gm/ Sodium Chloride) 100 mls @ 100 mls/ hr IVPB Q8 [facility] Last Admin: 04/21/17 08:21 Dose: 100 mls/hr Dextrose/Sodium Chloride (Dextrose 5%/0.9% Ns 1000 Ml) 1,000 mls @ 60 mls/hr IV .[id number] [facility] Stop: 04/22/17 12:47 Last Admin: 04/21/17 12:58 Dose: 60 mls/hr Lamotrigine (Lamictal) 25 mg PO BID [facility] Last Admin: 04/21/17 08:22 Dose: 25 mg Levalbuterol HCl (Xopenex) 0.63 mg INH RQ8 PRN PRN Reason: Shortness of Breath Last Admin: 04/21/17 07:59 Dose: 0.63 mg Metoprolol Tartrate (Lopressor) 100 mg GT Q12 [facility] Last Admin: 04/21/17 08:22 Dose: 100 mg Ondansetron HCl (Zofran Inj) 4 mg IVP Q6 PRN PRN Reason: Nausea/Vomiting - Labs Labs: 04/20/17 05:30 04/21/17 05:30 PT 15.6 Seconds (9.8-13.1) H 04/21/17 05:30 INR 1.4 (0.9-1.2) H 04/21/17 05:30 APTT 35.5 Seconds (25.6-37.1) 04/17/17 04:10 - Constitutional Appears: No Acute Distress, Chronically Ill - Head Exam Head Exam: NORMAL INSPECTION - Eye Exam Eye Exam: PERRL - ENT Exam ENT Exam: Normal Oropharynx - Neck Exam Neck Exam: Normal Inspection - Respiratory Exam Respiratory Exam: Decreased Breath Sounds (at bases), Rales (crackles at bases) - Cardiovascular Exam Cardiovascular Exam: Irregular Rhythm - GI/Abdominal Exam GI & Abdominal Exam: Soft, Normal Bowel Sounds - Extremities Exam Additional comments: Edema L/E, chronic skin changes L/E, - Neurological Exam Neurological Exam: Awake Additional comments: Follows commands - Psychiatric Exam Psychiatric exam: Normal Mood - Skin Skin Exam: Warm Assessment and Plan (1) Acute respiratory failure Assessment & Plan: Improved. Status: Acute (2) Acute on chronic diastolic (congestive) heart failure Status: Acute (3) Pleural effusion Status: Acute (4) CANDELARIA (acute kidney injury) Status: Acute (5) HTN (hypertension) Status: Chronic (6) A-fib Status: Chronic (7) Sleep apnea Status: Chronic (8) Lung nodule Status: Acute (9) Hypernatremia Status: Resolved - Assessment and Plan (Free Text) Plan: Continue respiratory Tx. f/u CXR tomorrow. ICU Time: 40 min.
--- NOTE | 2017-04-21 14:01 | CP.PCM.PN ---
Subjective - Date & Time of Evaluation Date of Evaluation: 04/21/17 Time of Evaluation: 11:25 - Subjective Subjective: Extubated. Norespiratory distress noted Objective - Vital Signs/Intake and Output Vital Signs (last 24 hours): Temp Pulse Resp BP Pulse Ox 98.8 F 103 H 25 H 179/107 H 98 04/21/17 13:00 04/21/17 13:00 04/21/17 13:00 04/21/17 13:00 04/21/17 13:00 Intake and Output: 04/21/17 04/21/17 06:59 18:59 Intake Total 1620 880 Output Total 850 Balance 770 880 - Medications Medications: Current Medications Acetylcysteine (Mucomyst 10% 4ml) 2 ml IH RTID [facility] Last Admin: 04/21/17 07:59 Dose: 2 ml Digoxin (Lanoxin) 0.125 mg PO DAILY [facility] Last Admin: 04/21/17 08:22 Dose: 0.125 mg Famotidine (Pepcid) 20 mg GT BID [facility] Last Admin: 04/21/17 08:22 Dose: 20 mg Furosemide (Lasix) 20 mg IVP DAILY [facility] Last Admin: 04/21/17 08:29 Dose: 20 mg Home Med (Dutasteride [Avodart]) 0.5 mg PO DAILY [facility] Last Admin: 04/21/17 08:22 Dose: 0.5 mg Piperacillin Sod/Tazobactam (Sod 2.25 gm/ Sodium Chloride) 100 mls @ 100 mls/ hr IVPB Q8 [facility] Last Admin: 04/21/17 08:21 Dose: 100 mls/hr Dextrose/Sodium Chloride (Dextrose 5%/0.9% Ns 1000 Ml) 1,000 mls @ 60 mls/hr IV .[id number] [facility] Stop: 04/22/17 12:47 Last Admin: 04/21/17 12:58 Dose: 60 mls/hr Lamotrigine (Lamictal) 25 mg PO BID [facility] Last Admin: 04/21/17 08:22 Dose: 25 mg Levalbuterol HCl (Xopenex) 0.63 mg INH RQ8 PRN PRN Reason: Shortness of Breath Last Admin: 04/21/17 07:59 Dose: 0.63 mg Metoprolol Tartrate (Lopressor) 100 mg GT Q12 [facility] Last Admin: 04/21/17 08:22 Dose: 100 mg Ondansetron HCl (Zofran Inj) 4 mg IVP Q6 PRN PRN Reason: Nausea/Vomiting - Labs Labs: 04/20/17 05:30 04/21/17 05:30 PT 15.6 Seconds (9.8-13.1) H 04/21/17 05:30 INR 1.4 (0.9-1.2) H 04/21/17 05:30 APTT 35.5 Seconds (25.6-37.1) 04/17/17 04:10 - Respiratory Exam Additional comments: B/L rhonchi - Cardiovascular Exam Cardiovascular Exam: REGULAR RHYTHM - Extremities Exam Extremities Exam: Pedal Edema Assessment and Plan - Assessment and Plan (Free Text) Assessment: CANDELARIA resolved Hypernatremia is improving Respiratory failure Plan: Continue to monitor renal functio & electrolytes
[2017-04-21] MEDS ORDERED: Chlorhexidine Gluconate 1 APPL/PKT TP ONE (16:35)
--- NOTE | 2017-04-21 17:12 | CP.CCUPN ---
CCU Subjective - Physician Review Events Since Last Encounter (Free Text): 04/21/17 17:10 Patient self extubated saturating well, started on BIPAP CCU Objective - Vital Signs / Intake & Output Vital Signs (Last 4 hours): Vital Signs Pulse Resp BP Pulse Ox 04/21/17 16:54 115 H 04/21/17 15:00 110 H 34 H 160/65 H 100 04/21/17 14:00 104 H 32 H 195/94 H 100 Intake and Output (Last 8hrs): Intake & Output 04/21/17 04/21/17 04/21/17 06:59 14:59 22:59 Intake Total 980 1000 120 Output Total 850 Balance 130 1000 120 Intake: IV 360 480 120 Intake, Piggyback 120 100 Oral 0 Tube Feeding 400 220 TPN/PPN 100 Free Water Flush 200 Output: Urine 850 Urethral (Wang) 850 Other: # Bowel Movements 2 - Physical Exam Cardiovascular: Positive for: Irregular Rhythm - Medications Active Medications: Active Medications Generic Name Dose Route Start Last Admin Trade Name Freq PRN Reason Stop Dose Admin Acetylcysteine 2 ml 04/16/17 20:00 04/21/17 07:59 Mucomyst 10% 4ml IH 2 ml RTID [facility] Administration Digoxin 0.125 mg 04/16/17 09:00 04/21/17 08:22 Lanoxin PO 0.125 mg DAILY [facility] Administration Famotidine 20 mg 04/18/17 17:00 04/21/17 17:05 Pepcid GT Not Given BID [facility] Furosemide 20 mg 04/18/17 09:00 04/21/17 08:29 Lasix IVP 20 mg DAILY [facility] Administration Home Med 0.5 mg 04/19/17 13:09 04/21/17 08:22 Dutasteride [Avodart] PO 0.5 mg DAILY [facility] Administration Piperacillin Sod/Tazobactam 100 mls @ 100 mls/hr 04/17/17 17:30 04/21/17 17: 02 Sod 2.25 gm/ Sodium Chloride IVPB 100 mls/hr Q8 [facility] Administration Dextrose/Sodium Chloride 1,000 mls @ 60 mls/hr 04/21/17 12:45 04/21/17 12:58 Dextrose 5%/0.9% Ns 1000 Ml IV 04/22/17 12:47 60 mls/hr .[id number] [facility] Administration Lamotrigine 25 mg 04/15/17 17:00 04/21/17 17:06 Lamictal PO Not Given BID [facility] Levalbuterol HCl 0.63 mg 04/15/17 15:25 04/21/17 07:59 Xopenex INH 0.63 mg RQ8 PRN Administration Shortness of Breath Metoprolol Tartrate 100 mg 04/17/17 11:58 04/21/17 08:22 Lopressor GT 100 mg Q12 [facility] Administration Ondansetron HCl 4 mg 04/18/17 15:49 Zofran Inj IVP Q6 PRN Nausea/Vomiting - Patient Studies Lab Studies: Lab Studies 04/21/17 04/21/17 04/21/17 Range/Units 06:00 05:30 05:30 PT 15.6 H (9.8-13.1) Seconds INR 1.4 H (0.9-1.2) pCO2 53 H (35-45) mm/Hg pO2 84 (80-100) mm/Hg HCO3 34.2 H (21-28) mmol/L ABG pH 7.46 H (7.35-7.45) ABG Total CO2 39.3 H (22-28) mmol/L ABG O2 Saturation 96.8 (95-98) % ABG O2 Content 16.2 (15-23) ML/dL ABG Base Excess 12.0 H (-2.0-3.0) mmol/L ABG Hemoglobin 12.1 (11.7-17.4) g/dL ABG Carboxyhemoglobin 1.0 (0.5-1.5) % POC ABG HHb (Measured) 3.1 (0.0-5.0) % ABG Methemoglobin 1.0 (0.0-3.0) % ABG O2 Capacity 16.7 (16-24) mL/dL Broderick Test Yes A-a O2 Difference 135.0 mm/Hg Hgb O2 Saturation 94.9 L (95.0-98.0) % Vent Mode A/c Mechanical Rate 10 FiO2 40.0 % Tidal Volume 500 PEEP 5 Sodium 147 (132-148) mmol/l Potassium 3.6 (3.6-5.0) MMOL/L Chloride 105 (98-107) mmol/L Carbon Dioxide 36 H (22-30) mmol/L Anion Gap 10 (10-20) BUN 43 H (9-20) mg/dl Creatinine 1.4 (0.8-1.5) mg/dL Est GFR ( Amer) 59 Est GFR (Non-Af Amer) 49 Random Glucose 119 H (75-110) mg/dL Calcium 7.8 L (8.4-10.2) mg/dL Total Bilirubin 0.6 (0.2-1.3) mg/dl AST 24 (17-59) U/L ALT 29 (21-72) U/L Alkaline Phosphatase 90 (38-126) U/L Total Protein 5.8 L (6.3-8.2) G/DL Albumin 2.7 L (3.5-5.0) g/dL Globulin 3.1 (2.2-3.9) gm/dL Albumin/Globulin Ratio 0.9 L (1.0-2.1) Laboratory Results - last 24 hr 04/21/17 04/21/17 04/21/17 05:30 05:30 06:00 PT 15.6 H INR 1.4 H pCO2 53 H pO2 84 HCO3 34.2 H ABG pH 7.46 H ABG Total CO2 39.3 H ABG O2 Saturation 96.8 ABG O2 Content 16.2 ABG Base Excess 12.0 H ABG Hemoglobin 12.1 ABG Carboxyhemoglobin 1.0 POC ABG HHb (Measured) 3.1 ABG Methemoglobin 1.0 ABG O2 Capacity 16.7 Broderick Test Yes A-a O2 Difference 135.0 Hgb O2 Saturation 94.9 L Vent Mode A/c Mechanical Rate 10 FiO2 40.0 Tidal Volume 500 PEEP 5 Sodium 147 Potassium 3.6 Chloride 105 Carbon Dioxide 36 H Anion Gap 10 BUN 43 H Creatinine 1.4 Est GFR ( Amer) 59 Est GFR (Non-Af Amer) 49 Random Glucose 119 H Calcium 7.8 L Total Bilirubin 0.6 AST 24 ALT 29 Alkaline Phosphatase 90 Total Protein 5.8 L Albumin 2.7 L Globulin 3.1 Albumin/Globulin Ratio 0.9 L Fingerstick Blood Sugar Results:
[2017-04-22 05:40] LABS: HEMATOCRIT 36.9 % (35.0-51.0); MEAN CELL VOLUME 94.6 fl (80.0-94.0); MEAN CORPUSCULAR HEMOGLOBIN 30.3 pg (27.0-31.0); RED CELL DISTRIBUTION WIDTH 15.1 % (11.5-14.5); WHITE BLOOD COUNT 11.6 K/uL (4.8-10.8)
[2017-04-22 05:51] LABS: CALCIUM 8.2 mg/dL (8.4-10.2)
[2017-04-22] MEDS: Dextrose 5%/0.9% NS 1,000 ML IV SCH (06:09)
[2017-04-22] MEDS: Acetylcysteine 10% 4 ML IH SCH ×3 (07:54→19:25)
[2017-04-22] MEDS: Levalbuterol 0.63 MG/3 ML Inhal Soln UD INH PRN (07:55)
[2017-04-22] MEDS ORDERED: Metoprolol 1 mg/ml Inj IVP ONE ×3 (08:11→11:48)
--- NOTE | 2017-04-22 08:55 | CP.CCUPN ---
CCU Subjective - Physician Review Subjective (Free Text): Patient off ventilator, self extubated yesterday, on BiPAP 10/5, FIO2 40%, opens eyes to verbal stimuli, no pressors, no fever, events reviewed. CCU Objective - Vital Signs / Intake & Output Vital Signs (Last 4 hours): Vital Signs Temp Pulse Resp BP Pulse Ox 04/22/17 08:00 98.5 F 122 H 25 H 200/109 H 100 04/22/17 06:00 112 H 30 H 100 04/22/17 05:30 144 H Intake and Output (Last 8hrs): Intake & Output 04/21/17 04/22/17 04/22/17 22:59 06:59 14:59 Intake Total 580 520 Output Total 850 600 Balance -270 -80 Intake: IV 480 420 Intake, Piggyback 100 100 Output: Urine 850 600 Urethral (Wang) 850 600 Other: # Bowel Movements 1 - Physical Exam Physical Exam Limitations: Positive for: Altered Mental Status Head: Positive for: Atraumatic, Normocephalic Pupils: Positive for: PERRL Conjunctiva: Positive for: Normal Mouth: Positive for: Moist Mucous Membranes Nose (External): Positive for: Atraumatic Nose (Internal): Positive for: Normal Inspection Neck: Positive for: Normal Range of Motion Respiratory/Chest: Positive for: Rhonchi Cardiovascular: Positive for: Irregular Rhythm Abdomen: Positive for: Normal Bowel Sounds Upper Extremity: Positive for: Normal Inspection Lower Extremity: Positive for: Normal Inspection Neurological: Positive for: Other (on ventilator, opens eyes to verbal stimuli) - Medications Active Medications: Active Medications Generic Name Dose Route Start Last Admin Trade Name Freq PRN Reason Stop Dose Admin Acetylcysteine 2 ml 04/16/17 20:00 04/22/17 07:54 Mucomyst 10% 4ml IH 2 ml RTID [facility] Administration Digoxin 0.125 mg 04/16/17 09:00 04/21/17 08:22 Lanoxin PO 0.125 mg DAILY [facility] Administration Famotidine 20 mg 04/18/17 17:00 04/21/17 17:05 Pepcid GT Not Given BID [facility] Furosemide 20 mg 04/18/17 09:00 04/21/17 08:29 Lasix IVP 20 mg DAILY [facility] Administration Home Med 0.5 mg 04/19/17 13:09 04/21/17 08:22 Dutasteride [Avodart] PO 0.5 mg DAILY [facility] Administration Piperacillin Sod/Tazobactam 100 mls @ 100 mls/hr 04/17/17 17:30 04/22/17 00: 16 Sod 2.25 gm/ Sodium Chloride IVPB 100 mls/hr Q8 [facility] Administration Dextrose 1,000 mls @ 75 mls/hr 04/22/17 08:50 Dextrose 5% In Water 1000 Ml IV 04/24/17 08:51 .[id number] [facility] Lamotrigine 25 mg 04/15/17 17:00 04/21/17 17:06 Lamictal PO Not Given BID [facility] Metoprolol Tartrate 100 mg 04/17/17 11:58 04/21/17 20:38 Lopressor GT Not Given Q12 [facility] Ondansetron HCl 4 mg 04/18/17 15:49 Zofran Inj IVP Q6 PRN Nausea/Vomiting - Patient Studies Lab Studies: Lab Studies 04/22/17 04/22/17 04/22/17 Range/Units 04:30 04:30 04:30 WBC 11.6 H (4.8-10.8) K/uL RBC 3.90 L (4.40-5.90) Mil/uL Hgb 11.8 L (12.0-18.0) g/dL Hct 36.9 (35.0-51.0) % MCV 94.6 H (80.0-94.0) fl MCH 30.3 (27.0-31.0) pg MCHC 32.0 L (33.0-37.0) g/dL RDW 15.1 H (11.5-14.5) % Plt Count 265 (130-400) K/uL PT 17.2 H (9.8-13.1) Seconds INR 1.5 H (0.9-1.2) Sodium 150 H (132-148) mmol/l Potassium 4.0 (3.6-5.0) MMOL/L Chloride 108 H (98-107) mmol/L Carbon Dioxide 36 H (22-30) mmol/L Anion Gap 10 (10-20) BUN 40 H (9-20) mg/dl Creatinine 1.4 (0.8-1.5) mg/dL Est GFR ( Amer) 59 Est GFR (Non-Af Amer) 49 Random Glucose 168 H (75-110) mg/dL Calcium 8.2 L (8.4-10.2) mg/dL 04/21/17 Range/Units 05:30 WBC (4.8-10.8) K/uL RBC (4.40-5.90) Mil/uL Hgb (12.0-18.0) g/dL Hct (35.0-51.0) % MCV (80.0-94.0) fl MCH (27.0-31.0) pg MCHC (33.0-37.0) g/dL RDW (11.5-14.5) % Plt Count (130-400) K/uL PT 15.6 H (9.8-13.1) Seconds INR 1.4 H (0.9-1.2) Sodium (132-148) mmol/l Potassium (3.6-5.0) MMOL/L Chloride (98-107) mmol/L Carbon Dioxide (22-30) mmol/L Anion Gap (10-20) BUN (9-20) mg/dl Creatinine (0.8-1.5) mg/dL Est GFR ( Amer) Est GFR (Non-Af Amer) Random Glucose (75-110) mg/dL Calcium (8.4-10.2) mg/dL Laboratory Results - last 24 hr 04/21/17 04/22/17 04/22/17 05:30 04:30 04:30 WBC 11.6 H RBC 3.90 L Hgb 11.8 L Hct 36.9 MCV 94.6 H MCH 30.3 MCHC 32.0 L RDW 15.1 H Plt Count 265 PT 15.6 H 17.2 H INR 1.4 H 1.5 H Sodium Potassium Chloride Carbon Dioxide Anion Gap BUN Creatinine Est GFR ( Amer) Est GFR (Non-Af Amer) Random Glucose Calcium 04/22/17 04:30 WBC RBC Hgb Hct MCV MCH MCHC RDW Plt Count PT INR Sodium 150 H Potassium 4.0 Chloride 108 H Carbon Dioxide 36 H Anion Gap 10 BUN 40 H Creatinine 1.4 Est GFR ( Amer) 59 Est GFR (Non-Af Amer) 49 Random Glucose 168 H Calcium 8.2 L Fingerstick Blood Sugar Results: 202 Critical Care Progress Note - Ventilator Checklist Head of Bed 30 Degrees: Yes PUD Prophalyxis: Yes DVT Prophylaxis: Yes - Extremities/Vascular Does the Patient have a Central Venous Catheter?: Yes Insertion Site: Internal Jugular Vein Does the Patient need a Central Venous Catheter?: Yes Does the Patient have a Wang Catheter?: Yes Does the Patient need a Wang Catheter?: Yes Catheter Insertion Criteria: Need for accurate measurement of output in critically ill patient - Restraints Justification for Restraints: High risk for removing IV access, High risk for harming self - Prophylaxis GI Prophylaxis GI: Pepsid - Prophylaxis DVT Prophylaxis DVT: Lovenox, SCDs Assessment/Plan - Assessment and Plan (Free Text) Assessment: Respiratory failure, COPD, ?pneumonia, tracheobronchitis, renal insufficiency, dementia, dehydration, A Fib Plan: - See orders -ventilatory support on BiPAP - weaning as tolerated - pulmonary toilets - Continue meds. -Follow repeat labs - DVT / GI prophylaxis
[2017-04-22] MEDS: Digoxin 125 mcg (0.125 mg) Tab PO SCH (09:27)
[2017-04-22] MEDS: Patient's Own Med (Dutasteride [Avodart] 0.5 MG) PO SCH (09:27)
[2017-04-22] MEDS: Metoprolol 1 mg/ml Inj IVP SCH ×3 (10:02→22:00)
[2017-04-22] MEDS: Digoxin 500 mcg/2ml (0.5 mg/2ml) Inj IVP SCH (11:00)
[2017-04-22] MEDS ORDERED: Digoxin 500 mcg/2ml (0.5 mg/2ml) Inj IVP ONE (11:43)
--- NOTE | 2017-04-22 12:36 | RAD ---
HISTORY: f/u pleural effusion COMPARISON: Comparison is made to the previous study dated 04/21/2017 FINDINGS: LUNGS: [id number] pulmonary vascular congestion is again noted. The left lung is smaller in size compared to the previous exam. PLEURA: Interval worsening of left pleural effusion since the previous study. Right pleural effusion is again noted. CARDIOVASCULAR: The cardiac silhouette is enlarged. OSSEOUS STRUCTURES: No significant abnormalities. VISUALIZED UPPER ABDOMEN: Normal. OTHER FINDINGS: None. IMPRESSION: Interval worsening of left pleural effusion since the previous exam.
--- NOTE | 2017-04-22 12:55 | CP.PCM.PN ---
Subjective - Date & Time of Evaluation Date of Evaluation: 04/22/17 Time of Evaluation: 10:45 - Subjective Subjective: F/U respiratory failure Extubated yesterday , on BIPAP , follows simple commands , attemps to talk , difficult to heard trough the BIPAP mask , follows simple commands , Patient's at bedside Objective - Vital Signs/Intake and Output Vital Signs (last 24 hours): Temp Pulse Resp BP Pulse Ox 98.5 F 114 H 33 H 187/109 H 100 04/22/17 12:00 04/22/17 12:00 04/22/17 12:00 04/22/17 12:00 04/22/17 12:00 Intake and Output: 04/22/17 04/22/17 06:59 18:59 Intake Total 760 875 Output Total 600 Balance 160 875 - Medications Medications: Current Medications Acetylcysteine (Mucomyst 10% 4ml) 2 ml IH RTID [facility] Last Admin: 04/22/17 07:54 Dose: 2 ml Digoxin (Lanoxin) 0.25 mg IVP DAILY [facility] Last Admin: 04/22/17 11:00 Dose: 0.25 mg Enoxaparin Sodium (Lovenox) 30 mg SC DAILY [facility] PRN Reason: Protocol Famotidine (Pepcid) 20 mg GT BID [facility] Last Admin: 04/22/17 09:27 Dose: Not Given Famotidine (Pepcid) 20 mg IVP Q12 [facility] Last Admin: 04/22/17 11:00 Dose: 20 mg Furosemide (Lasix) 20 mg IVP DAILY [facility] Last Admin: 04/22/17 09:21 Dose: 20 mg Home Med (Dutasteride [Avodart]) 0.5 mg PO DAILY [facility] Last Admin: 04/22/17 09:27 Dose: Not Given Piperacillin Sod/Tazobactam (Sod 2.25 gm/ Sodium Chloride) 100 mls @ 100 mls/ hr IVPB Q8 [facility] Last Admin: 04/22/17 09:20 Dose: 100 mls/hr Dextrose (Dextrose 5% In Water 1000 Ml) 1,000 mls @ 75 mls/hr IV .[id number] [facility] Stop: 04/24/17 08:51 Last Admin: 04/22/17 09:00 Dose: 75 mls/hr Lamotrigine (Lamictal) 25 mg PO BID [facility] Last Admin: 04/22/17 09:27 Dose: Not Given Metoprolol Tartrate (Lopressor) 100 mg GT Q12 [facility] Last Admin: 04/22/17 09:27 Dose: Not Given Metoprolol Tartrate (Lopressor) 5 mg IVP Q6 [facility] Last Admin: 04/22/17 10:02 Dose: 5 mg Ondansetron HCl (Zofran Inj) 4 mg IVP Q6 PRN PRN Reason: Nausea/Vomiting - Labs Labs: 04/22/17 04:30 04/22/17 04:30 PT 17.2 Seconds (9.8-13.1) H 04/22/17 04:30 INR 1.5 (0.9-1.2) H 04/22/17 04:30 APTT 35.5 Seconds (25.6-37.1) 04/17/17 04:10 - Constitutional Appears: Chronically Ill - Head Exam Head Exam: NORMAL INSPECTION - Eye Exam Eye Exam: PERRL - ENT Exam Additional comments: BIPAP - Neck Exam Neck Exam: Normal Inspection - Respiratory Exam Respiratory Exam: Decreased Breath Sounds (at bases), Rhonchi - Cardiovascular Exam Cardiovascular Exam: Irregular Rhythm - GI/Abdominal Exam GI & Abdominal Exam: Soft, Normal Bowel Sounds - Extremities Exam Extremities Exam: Pedal Edema - Neurological Exam Neurological Exam: Awake Additional comments: follows simple commands, limited movement U/E , L/E , generalized weakness - Skin Skin Exam: Warm Assessment and Plan (1) Acute respiratory failure Status: Acute (2) Acute on chronic diastolic (congestive) heart failure Status: Acute (3) Pleural effusion Status: Acute (4) CANDELARIA (acute kidney injury) Status: Acute (5) HTN (hypertension) Status: Chronic (6) A-fib Status: Chronic (7) Sleep apnea Status: Chronic (8) Lung nodule Status: Acute (9) Hypernatremia Status: Resolved - Assessment and Plan (Free Text) Plan: CXR increasing L Pleural effusion , f/u IR evaluate for L Thoracentesis , continue BIPAP and rest of treatment ICU Time: 39 min.
[2017-04-22] MEDS ORDERED: Labetalol 5mg/ml (4ml) IVP STA (13:52)
[2017-04-22] MEDS ORDERED: Lidocaine 1% Inj (20ml) ONE (14:45)
[2017-04-22] MEDS: Albuterol-Ipratrop 3 mg / 0.5 (3 ml) UD INH SCH ×2 (16:04→19:24)
[2017-04-23] MEDS: Metoprolol 1 mg/ml Inj IVP SCH ×4 (04:25→22:46)
[2017-04-23 05:18] LABS: BASO # 0.1 K/uL (0.0-0.2); BASO % 0.7 % (0.0-2.0); EOS # 0.1 K/uL (0.0-0.7); EOS % 0.4 % (0.0-4.0); LYMPH # 0.7 K/uL (1.0-4.3); LYMPH % 4.7 % (20.0-40.0); MEAN CELL VOLUME 93.8 fl (80.0-94.0); MEAN CORPUSCULAR HEMOGLOBIN 30.1 pg (27.0-31.0); MEAN CORPUSCULAR HGB CONC 32.1 g/dL (33.0-37.0); MEAN PLATELET VOLUME 8.4 fl (7.2-11.7); MONO # 0.6 K/uL (0.0-0.8); MONO % 3.9 % (0.0-10.0); NEUT # 13.9 K/uL (1.8-7.0); NEUT % 90.3 % (50.0-75.0); PLATELET COUNT 310 K/uL (130-400); RED CELL DISTRIBUTION WIDTH 14.5 % (11.5-14.5); WHITE BLOOD COUNT 15.4 K/uL (4.8-10.8)
[2017-04-23 05:23] LABS: ALB/GLOB RATIO 0.8 (1.0-2.1); BILIRUBIN,TOTAL 0.9 mg/dl (0.2-1.3); CALCIUM 8.7 mg/dL (8.4-10.2); POTASSIUM 4.3 MMOL/L (3.6-5.0); TOTAL PROTEIN 6.7 G/DL (6.3-8.2)
[2017-04-23] MEDS: Labetalol 5 mg/ml Inj 20ML IVP STA ×2 (06:51→10:12)
[2017-04-23] MEDS: Albuterol-Ipratrop 3 mg / 0.5 (3 ml) UD INH SCH ×4 (07:50→19:17)
[2017-04-23] MEDS: Acetylcysteine 10% 4 ML IH SCH ×3 (07:50→19:17)
[2017-04-23 07:58] LABS: NEUTROPHIL 95 % (42-75); TOTAL CELLS COUNTED 100
--- NOTE | 2017-04-23 08:11 | CP.PCM.PN ---
Subjective - Date & Time of Evaluation Date of Evaluation: 04/23/17 Time of Evaluation: 08:00 - Subjective Subjective: On BiPAP machine with pulse Ox at 88-90 % Difficult to arouse A Fib at 80-90 BPM BP 150/76 mm Hg No gallop/ pedal and sacral oedema+ Has been off of Warfarin in anticipation of poss thoracentasis Labs noted Spoke with Dr. Beatris gerber arranging thoracentasis early if necessary Objective - Vital Signs/Intake and Output Vital Signs (last 24 hours): Temp Pulse Resp BP Pulse Ox 98.3 F 90 32 H 174/88 H 92 L 04/23/17 04:00 04/23/17 07:15 04/23/17 06:00 04/23/17 07:15 04/23/17 06:00 Intake and Output: 04/23/17 04/23/17 06:59 18:59 Intake Total 950 Output Total 800 Balance 150 - Medications Medications: Current Medications Acetylcysteine (Mucomyst 10% 4ml) 2 ml IH RTID [facility] Last Admin: 04/23/17 07:50 Dose: 2 ml Albuterol/Ipratropium (Duoneb 3 Mg/0.5 Mg (3 Ml) Ud) 3 ml INH RQID [facility] Last Admin: 04/23/17 07:50 Dose: 3 ml Digoxin (Lanoxin) 0.25 mg IVP DAILY [facility] Last Admin: 04/22/17 11:00 Dose: 0.25 mg Enoxaparin Sodium (Lovenox) 30 mg SC DAILY [facility] PRN Reason: Protocol Famotidine (Pepcid) 20 mg GT BID [facility] Last Admin: 04/22/17 09:27 Dose: Not Given Famotidine (Pepcid) 20 mg IVP Q12 [facility] Last Admin: 04/22/17 21:38 Dose: 20 mg Furosemide (Lasix) 20 mg IVP DAILY [facility] Last Admin: 04/22/17 09:21 Dose: 20 mg Furosemide (Lasix) 40 mg IV STAT [facility] Stop: 04/23/17 07:24 Home Med (Dutasteride [Avodart]) 0.5 mg PO DAILY [facility] Last Admin: 04/22/17 09:27 Dose: Not Given Piperacillin Sod/Tazobactam (Sod 2.25 gm/ Sodium Chloride) 100 mls @ 100 mls/ hr IVPB Q8 [facility] Last Admin: 04/23/17 00:45 Dose: 100 mls/hr Dextrose (Dextrose 5% In Water 1000 Ml) 1,000 mls @ 75 mls/hr IV .[id number] [facility] Stop: 04/24/17 08:51 Last Admin: 04/22/17 22:01 Dose: 75 mls/hr Lamotrigine (Lamictal) 25 mg PO BID [facility] Last Admin: 04/22/17 17:09 Dose: Not Given Metoprolol Tartrate (Lopressor) 100 mg GT Q12 [facility] Last Admin: 04/22/17 09:27 Dose: Not Given Metoprolol Tartrate (Lopressor) 5 mg IVP Q6 [facility] Last Admin: 04/23/17 04:25 Dose: 5 mg Ondansetron HCl (Zofran Inj) 4 mg IVP Q6 PRN PRN Reason: Nausea/Vomiting - Labs Labs: 04/23/17 04:15 04/23/17 04:15 PT 17.2 Seconds (9.8-13.1) H 04/22/17 04:30 INR 1.5 (0.9-1.2) H 04/22/17 04:30 APTT 35.5 Seconds (25.6-37.1) 04/17/17 04:10
[2017-04-23 08:13] LABS: ABG ALLEN TEST YES; ARTERIAL BLOOD GAS HCO3 30.3 mmol/L (21-28); ARTERIAL BLOOD GAS PH 7.37 (7.35-7.45); ARTERIAL BLOOD GAS PO2 49 mm/Hg (80-100)
[2017-04-23] MEDS: Patient's Own Med (Dutasteride [Avodart] 0.5 MG) PO SCH (08:26)
[2017-04-23] MEDS: Digoxin 500 mcg/2ml (0.5 mg/2ml) Inj IVP SCH (08:27)
[2017-04-23] MEDS ORDERED: Chlorhexidine Gluconate 1 APPL/PKT TP ONE (08:47)
[2017-04-23] MEDS ORDERED: Labetalol 5mg/ml (4ml) IVP STA (09:55)
--- NOTE | 2017-04-23 10:58 | CP.PCM.PN ---
Subjective - Date & Time of Evaluation Date of Evaluation: 04/23/17 Time of Evaluation: 10:56 - Subjective Subjective: No new events reported overnight Urine output improving and noted Serum creatinine coming down slowly Patient recovering from acute kidney injury Continue respiratory and ICU treatment as per primary team I spoke to the she is at the bedside Objective - Vital Signs/Intake and Output Vital Signs (last 24 hours): Temp Pulse Resp BP Pulse Ox 99.3 F 91 H 37 H 202/149 H 90 L 04/23/17 08:11 04/23/17 10:00 04/23/17 10:00 04/23/17 10:12 04/23/17 10:00 Intake and Output: 04/23/17 04/23/17 06:59 18:59 Intake Total 950 175 Output Total 800 Balance 150 175 - Medications Medications: Current Medications Acetylcysteine (Mucomyst 10% 4ml) 2 ml IH RTID [facility] Last Admin: 04/23/17 07:50 Dose: 2 ml Albuterol/Ipratropium (Duoneb 3 Mg/0.5 Mg (3 Ml) Ud) 3 ml INH RQID [facility] Last Admin: 04/23/17 07:50 Dose: 3 ml Digoxin (Lanoxin) 0.25 mg IVP DAILY [facility] Last Admin: 04/23/17 08:27 Dose: 0.25 mg Enoxaparin Sodium (Lovenox) 30 mg SC DAILY [facility] PRN Reason: Protocol Famotidine (Pepcid) 20 mg GT BID [facility] Last Admin: 04/22/17 09:27 Dose: Not Given Famotidine (Pepcid) 20 mg IVP Q12 [facility] Last Admin: 04/23/17 08:30 Dose: 20 mg Furosemide (Lasix) 20 mg IVP DAILY [facility] Last Admin: 04/23/17 08:36 Dose: Not Given Home Med (Dutasteride [Avodart]) 0.5 mg PO DAILY [facility] Last Admin: 04/23/17 08:26 Dose: 0.5 mg Piperacillin Sod/Tazobactam (Sod 2.25 gm/ Sodium Chloride) 100 mls @ 100 mls/ hr IVPB Q8 [facility] Last Admin: 04/23/17 10:15 Dose: 100 mls/hr Lamotrigine (Lamictal) 25 mg PO BID [facility] Last Admin: 04/23/17 08:26 Dose: 25 mg Metoprolol Tartrate (Lopressor) 100 mg GT Q12 [facility] Last Admin: 04/22/17 09:27 Dose: Not Given Metoprolol Tartrate (Lopressor) 5 mg IVP Q6 [facility] Last Admin: 04/23/17 10:47 Dose: Not Given Ondansetron HCl (Zofran Inj) 4 mg IVP Q6 PRN PRN Reason: Nausea/Vomiting - Labs Labs: 04/23/17 04:15 04/23/17 04:15 PT 17.2 Seconds (9.8-13.1) H 04/22/17 04:30 INR 1.5 (0.9-1.2) H 04/22/17 04:30 APTT 35.5 Seconds (25.6-37.1) 04/17/17 04:10 Assessment and Plan (1) CANDELARIA (acute kidney injury) Status: Acute (2) Acute respiratory failure Status: Acute
--- NOTE | 2017-04-23 11:53 | RAD ---
PROCEDURE: CHEST RADIOGRAPH, 1 VIEW HISTORY: bilateral effusions COMPARISON: Comparison is made to 04/22/2017 FINDINGS: LUNGS: Interval worsening of pulmonary vascular congestion since the previous exam. PLEURA: Bilateral pleural effusions larger on the left. CARDIOVASCULAR: The cardiac silhouette is enlarged. OSSEOUS STRUCTURES: No significant abnormalities. VISUALIZED UPPER ABDOMEN: Normal. OTHER FINDINGS: None. IMPRESSION: Interval worsening of pulmonary vascular congestion since the previous exam. Bilateral large pleural effusion larger on the left.
[2017-04-23] MEDS: Nitroglycerin 50mg in D5W 50 MG/250 ML BOTTLE IV ONE ×2 (12:14→21:00)
--- NOTE | 2017-04-23 13:04 | CP.CCUPN ---
CCU Subjective - Physician Review Events Since Last Encounter (Free Text): 04/23/17 20:09 The Patient was seen and examined at the bedside with the ICU team. Management issues were discussed and formulated. Awake, comfortable, NAD Patient self extubated,, remains BIPAP dependent NPO Large left effusion scheduled for thoracocentesis AFebrile CCU Objective - Vital Signs / Intake & Output Vital Signs (Last 4 hours): Vital Signs Temp Pulse Resp BP Pulse Ox 04/23/17 12:33 99.4 F 116 H 34 H 157/90 H 93 L 04/23/17 12:00 94 H 33 H 180/95 H 91 L 04/23/17 11:26 100 H 04/23/17 10:12 202/149 H 04/23/17 10:00 91 H 37 H 147/74 90 L Intake and Output (Last 8hrs): Intake & Output 04/22/17 04/23/17 04/23/17 22:59 06:59 14:59 Intake Total 475 875 175 Output Total 1200 800 Balance -725 75 175 Intake: IV 375 675 75 Intake, Piggyback 100 200 100 Oral 0 Output: Urine 1200 800 Urethral (Wang) 1200 800 - Physical Exam Head: Positive for: Atraumatic, Normocephalic Pupils: Positive for: PERRL Conjunctiva: Positive for: Normal Mouth: Positive for: Moist Mucous Membranes Nose (External): Positive for: Atraumatic Nose (Internal): Positive for: Normal Inspection Neck: Positive for: Normal Range of Motion Respiratory/Chest: Positive for: Rhonchi Cardiovascular: Positive for: Irregular Rhythm Abdomen: Positive for: Normal Bowel Sounds Upper Extremity: Positive for: Normal Inspection Lower Extremity: Positive for: Normal Inspection Neurological: Positive for: Other (on ventilator, opens eyes to verbal stimuli) Skin: Positive for: Other (Unstageable sacral ulcer) - Medications Active Medications: Active Medications Generic Name Dose Route Start Last Admin Trade Name Freq PRN Reason Stop Dose Admin Acetylcysteine 2 ml 04/16/17 20:00 04/23/17 07:50 Mucomyst 10% 4ml IH 2 ml RTID [facility] Administration Albuterol/Ipratropium 3 ml 04/22/17 16:00 04/23/17 11:23 Duoneb 3 Mg/0.5 Mg (3 Ml) Ud INH 3 ml RQID [facility] Administration Digoxin 0.25 mg 04/22/17 10:00 04/23/17 08:27 Lanoxin IVP 0.25 mg DAILY [facility] Administration Enoxaparin Sodium 30 mg 04/22/17 09:00 Lovenox SC DAILY [facility] Protocol Famotidine 20 mg 04/18/17 17:00 04/22/17 09:27 Pepcid GT Not Given BID [facility] Famotidine 20 mg 04/22/17 10:00 04/23/17 08:30 Pepcid IVP 20 mg Q12 [facility] Administration Furosemide 20 mg 04/18/17 09:00 04/23/17 08:36 Lasix IVP Not Given DAILY [facility] Home Med 0.5 mg 04/19/17 13:09 04/23/17 08:26 Dutasteride [Avodart] PO 0.5 mg DAILY [facility] Administration Piperacillin Sod/Tazobactam 100 mls @ 100 mls/hr 04/17/17 17:30 04/23/17 10: 15 Sod 2.25 gm/ Sodium Chloride IVPB 100 mls/hr Q8 [facility] Administration Nitroglycerin/Dextrose 50 mg in 250 mls @ 1.5 mls/hr 04/23/17 11:14 04/23/17 12:14 Nitroglycerin 50 Mg/250 Ml D5w IV 04/24/17 11:13 1.5 mls/hr .Q24H ONE Administration Protocol 5 MCG/MIN Lamotrigine 25 mg 04/15/17 17:00 04/23/17 08:26 Lamictal PO 25 mg BID [facility] Administration Metoprolol Tartrate 100 mg 04/17/17 11:58 04/22/17 09:27 Lopressor GT Not Given Q12 [facility] Metoprolol Tartrate 5 mg 04/22/17 10:00 04/23/17 10:47 Lopressor IVP Not Given Q6 [facility] Ondansetron HCl 4 mg 04/18/17 15:49 Zofran Inj IVP Q6 PRN Nausea/Vomiting - Patient Studies Lab Studies: Lab Studies 04/23/17 04/23/17 04/23/17 Range/Units 08:05 04:15 04:15 WBC 15.4 H (4.8-10.8) K/uL RBC 4.05 L (4.40-5.90) Mil/uL Hgb 12.2 (12.0-18.0) g/dL Hct 38.0 (35.0-51.0) % MCV 93.8 (80.0-94.0) fl MCH 30.1 (27.0-31.0) pg MCHC 32.1 L (33.0-37.0) g/dL RDW 14.5 (11.5-14.5) % Plt Count 310 (130-400) K/uL MPV 8.4 (7.2-11.7) fl Neut % (Auto) 90.3 H (50.0-75.0) % Lymph % (Auto) 4.7 L (20.0-40.0) % [place] % (Auto) 3.9 (0.0-10.0) % Eos % (Auto) 0.4 (0.0-4.0) % Baso % (Auto) 0.7 (0.0-2.0) % Neut # 13.9 H (1.8-7.0) K/uL Lymph # 0.7 L (1.0-4.3) K/uL [place] # 0.6 (0.0-0.8) K/uL Eos # 0.1 (0.0-0.7) K/uL Baso # 0.1 (0.0-0.2) K/uL Neutrophils % (Manual) 95 H (42-75) % Lymphocytes % (Manual) 2 L (20-50) % Monocytes % (Manual) 3 (0-10) % Toxic Granulation Present Platelet Estimate Normal (NORMAL) Anisocytosis (manual) Slight pCO2 60 H (35-45) mm/Hg pO2 49 L (80-100) mm/Hg HCO3 30.3 H (21-28) mmol/L ABG pH 7.37 (7.35-7.45) ABG Total CO2 36.5 H (22-28) mmol/L ABG O2 Saturation 85.2 L (95-98) % ABG Base Excess 7.4 H (-2.0-3.0) mmol/L Broderick Test Yes ABG Potassium 4.3 (3.6-5.2) mmol/L A-a O2 Difference 304.0 mm/Hg Glucose 174 H (75-110) mg/dL Lactate 1.6 (0.7-2.1) mmol/L FiO2 60.0 % Sodium 144.0 148 (132-148) mmol/l Potassium 4.3 (3.6-5.0) MMOL/L Chloride 108.0 H 104 (98-107) mmol/L Carbon Dioxide 36 H (22-30) mmol/L Anion Gap 12 (10-20) BUN 37 H (9-20) mg/dl Creatinine 1.4 (0.8-1.5) mg/dL Est GFR ( Amer) 59 Est GFR (Non-Af Amer) 49 Random Glucose 189 H (75-110) mg/dL Calcium 8.7 (8.4-10.2) mg/dL Total Bilirubin 0.9 (0.2-1.3) mg/dl AST 32 (17-59) U/L ALT 31 (21-72) U/L Alkaline Phosphatase 109 (38-126) U/L Total Protein 6.7 (6.3-8.2) G/DL Albumin 3.1 L (3.5-5.0) g/dL Globulin 3.7 (2.2-3.9) gm/dL Albumin/Globulin Ratio 0.8 L (1.0-2.1) Arterial Blood Potassium 4.3 (3.6-5.2) mmol/L Laboratory Results - last 24 hr 04/23/17 04/23/17 04/23/17 04:15 04:15 08:05 WBC 15.4 H RBC 4.05 L Hgb 12.2 Hct 38.0 MCV 93.8 MCH 30.1 MCHC 32.1 L RDW 14.5 Plt Count 310 MPV 8.4 Neut % (Auto) 90.3 H Lymph % (Auto) 4.7 L [place] % (Auto) 3.9 Eos % (Auto) 0.4 Baso % (Auto) 0.7 Neut # 13.9 H Lymph # 0.7 L [place] # 0.6 Eos # 0.1 Baso # 0.1 Neutrophils % (Manual) 95 H Lymphocytes % (Manual) 2 L Monocytes % (Manual) 3 Toxic Granulation Present Platelet Estimate Normal Anisocytosis (manual) Slight pCO2 60 H pO2 49 L HCO3 30.3 H ABG pH 7.37 ABG Total CO2 36.5 H ABG O2 Saturation 85.2 L ABG Base Excess 7.4 H Broderick Test Yes ABG Potassium 4.3 A-a O2 Difference 304.0 Glucose 174 H Lactate 1.6 FiO2 60.0 Sodium 148 144.0 Potassium 4.3 Chloride 104 108.0 H Carbon Dioxide 36 H Anion Gap 12 BUN 37 H Creatinine 1.4 Est GFR ( Amer) 59 Est GFR (Non-Af Amer) 49 Random Glucose 189 H Calcium 8.7 Total Bilirubin 0.9 AST 32 ALT 31 Alkaline Phosphatase 109 Total Protein 6.7 Albumin 3.1 L Globulin 3.7 Albumin/Globulin Ratio 0.8 L Arterial Blood Potassium 4.3 Fingerstick Blood Sugar Results: 202 Review of Systems - Review of Systems Systems not reviewed;Unavailable: Acuity of Condition Assessment/Plan (1) CANDELARIA (acute kidney injury) Current Visit: Yes Status: Acute Priority: High (2) Acute decompensated heart failure Current Visit: Yes Status: Acute (3) Acute on chronic diastolic (congestive) heart failure Current Visit: Yes Status: Acute Priority: High (4) Acute respiratory failure Current Visit: Yes Status: Acute Priority: High (5) Aspiration pneumonia Current Visit: Yes Status: Acute (6) Hypernatremia Current Visit: Yes Status: Acute (7) Pleural effusion Current Visit: Yes Status: Acute - Assessment and Plan (Free Text) Assessment: - Continue current medications, reviewed - Wean off BiPAP - IV dieresis, Lasix 20 mg IVP DAILY - Strict I&O - HR control with Digoxin - IV Antibiotics with Piperacillin Sod/Tazobactam - Pulmonary toilets - Albuterol/Ipratropium INH RQID - Follow CXR, ABG, labs - Scheduled for US guided thoracentesis today - Wound care for Unstageable sacral ulcer - DVT / GI prophylaxis: Pepcid, Lovenox
[2017-04-23] MEDS ORDERED: Lidocaine 1% Inj (20ml) ONE (13:43)
--- NOTE | 2017-04-23 14:21 | CP.PCM.PN ---
Subjective - Date & Time of Evaluation Date of Evaluation: 04/23/17 Time of Evaluation: 10:50 - Subjective Subjective: F/U Respiratory failure Patient lethargic , on BIPAP, Patient' at bedside Objective - Vital Signs/Intake and Output Vital Signs (last 24 hours): Temp Pulse Resp BP Pulse Ox 99.4 F 105 H 33 H 186/96 H 91 L 04/23/17 12:33 04/23/17 14:00 04/23/17 14:00 04/23/17 14:00 04/23/17 14:00 Intake and Output: 04/23/17 04/23/17 06:59 18:59 Intake Total 950 185 Output Total 800 Balance 150 185 - Medications Medications: Current Medications Acetylcysteine (Mucomyst 10% 4ml) 2 ml IH RTID [facility] Last Admin: 04/23/17 07:50 Dose: 2 ml Albuterol/Ipratropium (Duoneb 3 Mg/0.5 Mg (3 Ml) Ud) 3 ml INH RQID [facility] Last Admin: 04/23/17 11:23 Dose: 3 ml Digoxin (Lanoxin) 0.25 mg IVP DAILY [facility] Last Admin: 04/23/17 08:27 Dose: 0.25 mg Enoxaparin Sodium (Lovenox) 30 mg SC DAILY [facility] PRN Reason: Protocol Famotidine (Pepcid) 20 mg GT BID [facility] Last Admin: 04/22/17 09:27 Dose: Not Given Famotidine (Pepcid) 20 mg IVP Q12 [facility] Last Admin: 04/23/17 08:30 Dose: 20 mg Furosemide (Lasix) 20 mg IVP DAILY [facility] Last Admin: 04/23/17 08:36 Dose: Not Given Home Med (Dutasteride [Avodart]) 0.5 mg PO DAILY [facility] Last Admin: 04/23/17 08:26 Dose: 0.5 mg Piperacillin Sod/Tazobactam (Sod 2.25 gm/ Sodium Chloride) 100 mls @ 100 mls/ hr IVPB Q8 [facility] Last Admin: 04/23/17 10:15 Dose: 100 mls/hr Nitroglycerin/Dextrose (Nitroglycerin 50 Mg/250 Ml D5w) 50 mg in 250 mls @ 1.5 mls/hr IV .Q24H ONE; 5 MCG/MIN PRN Reason: Protocol Stop: 04/24/17 11:13 Last Admin: 04/23/17 12:14 Dose: 1.5 mls/hr Lamotrigine (Lamictal) 25 mg PO BID [facility] Last Admin: 04/23/17 08:26 Dose: 25 mg Metoprolol Tartrate (Lopressor) 100 mg GT Q12 [facility] Last Admin: 04/22/17 09:27 Dose: Not Given Metoprolol Tartrate (Lopressor) 5 mg IVP Q6 [facility] Last Admin: 04/23/17 10:47 Dose: Not Given Ondansetron HCl (Zofran Inj) 4 mg IVP Q6 PRN PRN Reason: Nausea/Vomiting - Labs Labs: 04/23/17 04:15 04/23/17 04:15 PT 17.2 Seconds (9.8-13.1) H 04/22/17 04:30 INR 1.5 (0.9-1.2) H 04/22/17 04:30 APTT 35.5 Seconds (25.6-37.1) 04/17/17 04:10 - Constitutional Appears: Chronically Ill - Head Exam Head Exam: NORMAL INSPECTION - Eye Exam Eye Exam: PERRL - ENT Exam Additional comments: BIPAP - Neck Exam Neck Exam: Normal Inspection - Respiratory Exam Respiratory Exam: Decreased Breath Sounds (at bases), Rhonchi - Cardiovascular Exam Cardiovascular Exam: Irregular Rhythm - GI/Abdominal Exam GI & Abdominal Exam: Soft, Normal Bowel Sounds - Extremities Exam Extremities Exam: Pedal Edema (Edema U/E , L/E) - Neurological Exam Additional comments: lethargic , on BIPAP , limited movements U/E, L/E, generalized weakness. - Psychiatric Exam Additional comments: lethargic - Skin Skin Exam: Warm Assessment and Plan (1) Acute respiratory failure Status: Acute (2) Acute on chronic diastolic (congestive) heart failure Status: Acute (3) Pleural effusion Status: Acute (4) CANDELARIA (acute kidney injury) Status: Acute (5) HTN (hypertension) Status: Chronic (6) A-fib Status: Chronic (7) Sleep apnea Status: Chronic (8) Lung nodule Status: Acute (9) Hypernatremia Status: Resolved - Assessment and Plan (Free Text) Plan: CXR increasing L Pleural effusion , yesterday and today BP high , Patient treated with Labetalol , Lasix , Nitro drip ,to have L Thoracentesis by IR today , continue rest of treatment ICU Time: 40 min.
--- NOTE | 2017-04-23 14:27 | PCM.SURG1 ---
Surgeon's Initial Post Op Note - Surgeon's Notes Surgeon: Clifford Friedman MD Lockstitch Coat Joiner: None Type of Anesthesia: Local Pre-Operative Diagnosis: Pleural effusion Operative Findings: US showed large left effusion Post-Operative Diagnosis: Pleural effusion Operation Performed: US guided thoracentesis. Specimen/Specimens Removed: 2 l of slight serosanguinous fluid Estimated Blood Loss: EBL {In ML}: 0 Blood Products Given: N/A Drains Used: No Drains Post-Op Condition: Fair Date of Surgery/Procedure: 04/23/17 Time of Surgery/Procedure: 14:20
[2017-04-23] MEDS: Enoxaparin 30 mg Syringe SC SCH (16:23)
[2017-04-24] MEDS: Metoprolol 1 mg/ml Inj IVP SCH ×2 (04:00→15:38)
[2017-04-24] MEDS: Acetylcysteine 10% 4 ML IH SCH ×3 (07:51→19:45)
[2017-04-24] MEDS: Albuterol-Ipratrop 3 mg / 0.5 (3 ml) UD INH SCH ×4 (07:51→19:45)
[2017-04-24] MEDS: Digoxin 500 mcg/2ml (0.5 mg/2ml) Inj IVP SCH (08:19)
[2017-04-24] MEDS: Enoxaparin 30 mg Syringe SC SCH (08:19)
[2017-04-24] MEDS: Patient's Own Med (Dutasteride [Avodart] 0.5 MG) PO SCH (08:20)
--- NOTE | 2017-04-24 08:46 | CP.PCM.PN ---
Subjective - Date & Time of Evaluation Date of Evaluation: 04/24/17 Time of Evaluation: 08:20 - Subjective Subjective: Doing much better following Lt pleural tap and removal of 2L of pleural fluid Awake, Nods appropriately to simple commands Oxygenating much better with BiPAP supported O2 supplement Still tachycardic (a fib at 110-120BPM) possibly due to Albuterol BP 126/70 mm Hg Mild anasarca+ Excellent urine out put Renal status has remained stable Feeding will start after swollow eval Have increased Metoprolol IV frequency to control HR Objective - Vital Signs/Intake and Output Vital Signs (last 24 hours): Temp Pulse Resp BP Pulse Ox 98.2 F 118 H 26 H 128/47 L 99 04/24/17 08:00 04/24/17 08:00 04/24/17 08:00 04/24/17 08:00 04/24/17 08:00 Intake and Output: 04/24/17 04/24/17 06:59 18:59 Intake Total 330 Output Total 450 Balance -120 - Medications Medications: Current Medications Acetylcysteine (Mucomyst 10% 4ml) 2 ml IH RTID [facility] Last Admin: 04/24/17 07:51 Dose: 2 ml Albuterol/Ipratropium (Duoneb 3 Mg/0.5 Mg (3 Ml) Ud) 3 ml INH RQID [facility] Last Admin: 04/24/17 07:51 Dose: 3 ml Digoxin (Lanoxin) 0.25 mg IVP DAILY [facility] Last Admin: 04/24/17 08:19 Dose: 0.25 mg Enoxaparin Sodium (Lovenox) 30 mg SC DAILY [facility] PRN Reason: Protocol Last Admin: 04/24/17 08:19 Dose: 30 mg Famotidine (Pepcid) 20 mg GT BID [facility] Last Admin: 04/22/17 09:27 Dose: Not Given Famotidine (Pepcid) 20 mg IVP Q12 [facility] Last Admin: 04/23/17 21:00 Dose: 20 mg Furosemide (Lasix) 20 mg IVP DAILY [facility] Last Admin: 04/23/17 08:36 Dose: Not Given Home Med (Dutasteride [Avodart]) 0.5 mg PO DAILY [facility] Last Admin: 04/24/17 08:20 Dose: Not Given Piperacillin Sod/Tazobactam (Sod 2.25 gm/ Sodium Chloride) 100 mls @ 100 mls/ hr IVPB Q8 [facility] Last Admin: 04/24/17 08:21 Dose: 100 mls/hr Nitroglycerin/Dextrose (Nitroglycerin 50 Mg/250 Ml D5w) 50 mg in 250 mls @ 1.5 mls/hr IV .Q24H ONE; 5 MCG/MIN PRN Reason: Protocol Stop: 04/24/17 11:13 Last Admin: 04/23/17 21:00 Dose: 1.5 mls/hr Lamotrigine (Lamictal) 25 mg PO BID [facility] Last Admin: 04/24/17 08:20 Dose: 25 mg Metoprolol Tartrate (Lopressor) 100 mg GT Q12 [facility] Last Admin: 04/22/17 09:27 Dose: Not Given Ondansetron HCl (Zofran Inj) 4 mg IVP Q6 PRN PRN Reason: Nausea/Vomiting - Labs Labs: 04/23/17 04:15 04/23/17 04:15 PT 17.2 Seconds (9.8-13.1) H 04/22/17 04:30 INR 1.5 (0.9-1.2) H 04/22/17 04:30 APTT 35.5 Seconds (25.6-37.1) 04/17/17 04:10
--- NOTE | 2017-04-24 09:51 | CP.CCUPN ---
CCU Subjective - Physician Review Subjective (Free Text): Patient self extubated 04/21/17, on BiPAP 24/04, FIO2 80%, more readily opens eyes to verbal stimuli, no pressors, no fever, events reviewed. CCU Objective - Vital Signs / Intake & Output Vital Signs (Last 4 hours): Vital Signs Temp Pulse Resp BP Pulse Ox 04/24/17 08:54 128/47 L 04/24/17 08:00 98.2 F 118 H 26 H 128/47 L 99 04/24/17 07:51 105 H 04/24/17 06:00 94 H 32 H 135/95 H 99 Intake and Output (Last 8hrs): Intake & Output 04/23/17 04/24/17 04/24/17 22:59 06:59 14:59 Intake Total 178 300 Output Total 675 450 Balance -497 -150 Intake: IV 23 0 Intake, Piggyback 100 300 Oral 55 Output: Urine 675 450 Urethral (Wang) 675 450 - Physical Exam Physical Exam Limitations: Positive for: Altered Mental Status Head: Positive for: Atraumatic, Normocephalic Pupils: Positive for: PERRL Conjunctiva: Positive for: Normal Mouth: Positive for: Moist Mucous Membranes Neck: Positive for: Normal Range of Motion Respiratory/Chest: Positive for: Decreased Breath Sounds, Rhonchi Cardiovascular: Positive for: Irregular Rhythm Abdomen: Positive for: Normal Bowel Sounds Upper Extremity: Positive for: Edema, Neurovascularly Intact Lower Extremity: Positive for: Edema, NORMAL PULSES. Negative for: CALF TENDERNESS Neurological: Positive for: Other (on ventilator, opens eyes to verbal stimuli) Skin: Positive for: Other (Unstageable sacral ulcer) - Medications Active Medications: Active Medications Generic Name Dose Route Start Last Admin Trade Name Freq PRN Reason Stop Dose Admin Acetylcysteine 2 ml 04/16/17 20:00 04/24/17 07:51 Mucomyst 10% 4ml IH 2 ml RTID YUKI Administration Albuterol/Ipratropium 3 ml 04/22/17 16:00 04/24/17 07:51 Duoneb 3 Mg/0.5 Mg (3 Ml) Ud INH 3 ml RQID YUKI Administration Digoxin 0.25 mg 04/22/17 10:00 04/24/17 08:19 Lanoxin IVP 0.25 mg DAILY YUKI Administration Enoxaparin Sodium 30 mg 04/22/17 09:00 04/24/17 08:19 Lovenox SC 30 mg DAILY YUKI Administration Protocol Famotidine 20 mg 04/18/17 17:00 04/22/17 09:27 Pepcid GT Not Given BID [facility] Famotidine 20 mg 04/22/17 10:00 04/24/17 08:54 Pepcid IVP 20 mg Q12 YUKI Administration Furosemide 20 mg 04/18/17 09:00 04/24/17 08:54 Lasix IVP 20 mg DAILY [facility] Administration Home Med 0.5 mg 04/19/17 13:09 04/24/17 08:20 Dutasteride [Avodart] PO Not Given DAILY [facility] Piperacillin Sod/Tazobactam 100 mls @ 100 mls/hr 04/17/17 17:30 04/24/17 08: 21 Sod 2.25 gm/ Sodium Chloride IVPB 100 mls/hr Q8 [facility] Administration Nitroglycerin/Dextrose 50 mg in 250 mls @ 1.5 mls/hr 04/23/17 11:14 04/23/17 21:00 Nitroglycerin 50 Mg/250 Ml D5w IV 04/24/17 11:13 1.5 mls/hr .Q24H ONE Administration Protocol 5 MCG/MIN Lamotrigine 25 mg 04/15/17 17:00 04/24/17 08:20 Lamictal PO 25 mg BID Y[facility]I Administration Metoprolol Tartrate 100 mg 04/17/17 11:58 04/22/17 09:27 Lopressor GT Not Given Q12 [facility] Metoprolol Tartrate 5 mg 04/24/17 08:45 Lopressor IVP Q4H [facility] Ondansetron HCl 4 mg 04/18/17 15:49 Zofran Inj IVP Q6 PRN Nausea/Vomiting - Patient Studies Fingerstick Blood Sugar Results: 202 Review of Systems - Review of Systems All systems: reviewed and no additional remarkable complaints except - Cardiovascular Cardiovascular: absent: Chest Pain - Respiratory Respiratory: Chest Congestion - Gastrointestinal Gastrointestinal: absent: Abdominal Pain Critical Care Progress Note - Extremities/Vascular Insertion Site: Femoral Vein Does the Patient need a Central Venous Catheter?: Yes Does the Patient have a Wang Catheter?: Yes Does the Patient need a Wang Catheter?: Yes Catheter Insertion Criteria: Need for accurate measurement of output in critically ill patient - Prophylaxis GI Prophylaxis GI: Pepsid - Prophylaxis DVT Prophylaxis DVT: Lovenox - Nutrition Nutrition: Nutrition Category Date Time Status NPO Diet [DIET] Diets 04/23/17 Breakfast Active Assessment/Plan - Assessment and Plan (Free Text) Assessment: Respiratory failure COPD / pneumonia / tracheobronchitis renal insufficiency dementia A Fib with RVR Plan: - See orders -ventilatory support on BiPAP - weaning as tolerated - pulmonary toilets - Continue meds: Lopressor increased to IV Q4H Addl Digoxin PRN for rate control -needs PICC - US RUE, r/o DVT -Follow repeat labs - DVT / GI prophylaxis
--- NOTE | 2017-04-24 11:48 | RAD ---
PROCEDURE: CHEST RADIOGRAPH, 1 VIEW HISTORY: R/O PTX Status post left thoracentesis April 23, 2017. COMPARISON: April 23, 2017. 04:35. FINDINGS: LUNGS: Complete opacification of the right tom thorax likely abrupt onset atelectasis. This is also suggested by the appearance of the trachea. Hyperinflation, expansion of the left lung. No evidence of pneumothorax following thoracentesis. PLEURA: No pneumothorax. No evidence of residual left pleural effusion. CARDIOVASCULAR: No radiographic findings to suggest acute or significant cardiovascular disease. OSSEOUS STRUCTURES: No significant abnormalities. VISUALIZED UPPER ABDOMEN: Normal. OTHER FINDINGS: None. IMPRESSION: Complete opacification of the right lung with re-expansion of the left lung status post left thoracentesis. No pneumothorax identified.
--- NOTE | 2017-04-24 11:50 | RAD ---
HISTORY: R/O Atelectases COMPARISON: Multiple serial examinations preceding the most recent study: April 23, 2017. At 14:20 FINDINGS: LUNGS: Improved aeration of the right lung. PLEURA: No pneumothorax following left thoracentesis. Left lower lobe is completely re-expanded Right pleural effusion difficult to separate from consolidative changes right lower lobe. CARDIOVASCULAR: No radiographic findings to suggest acute or significant cardiovascular disease. OSSEOUS STRUCTURES: No significant abnormalities. VISUALIZED UPPER ABDOMEN: Normal. OTHER FINDINGS: None. IMPRESSION: Improved aeration/ re-expansion of the lower right lung.
[2017-04-24 12:29] LABS: ALB/GLOB RATIO 0.8 (1.0-2.1); BILIRUBIN,TOTAL 0.8 mg/dl (0.2-1.3); CALCIUM 8.4 mg/dL (8.4-10.2); POTASSIUM 4.2 MMOL/L (3.6-5.0)
[2017-04-24 12:39] LABS: PARTIAL THROMBOPLASTIN TIME 19.2 Seconds (25.6-37.1)
--- NOTE | 2017-04-24 14:13 | RAD ---
HISTORY: f/u atelectasis , effusion COMPARISON: Most recent chest x-ray performed 04/23/17 TECHNIQUE: Chest, one view. FINDINGS: Sternal wires and leads obscure evaluation of the underlying parenchyma. LUNGS: Increased layering right pleural effusion and associated consolidation. Small left pleural effusion and associated consolidation. No definite pneumothorax. Please note that chest x-ray has limited sensitivity for the detection of pulmonary masses. CARDIOVASCULAR: Partially obscured cardiomegaly. Atherosclerotic calcifications of the aortic knob. OSSEOUS STRUCTURES: Degenerative changes. VISUALIZED UPPER ABDOMEN: Unremarkable. OTHER FINDINGS: None. IMPRESSION: Increased layering right pleural effusion and associated consolidation. Small left pleural effusion and associated consolidation. Partially obscured cardiomegaly.
--- NOTE | 2017-04-24 14:15 | CT ---
PROCEDURE: Date of procedure: 04/23/2017 Procedure: 1. Ultrasound-guided left thoracentesis, CPT 64284 Medications: 7 cc 1% Lidocaine HISTORY: Left pleural effusion, shortness of breath TECHNIQUE: Following informed consent ,the Patients' left chest was marked. Procedure time-out was called, and the patient was placed in the sitting position and limited ultrasound showed a large left effusion. The patient's left back was prepped and draped in the usual sterile fashion. After the skin was anesthetized with lidocaine, a drainage catheter was advanced under ultrasound guidance into the pleural space. Ultrasound-guided thoracentesis was performed. A total of 2000 cubic centimeters of straw-colored fluid removed without complication. A Xeroform dressing was applied. IMPRESSION: Ultrasound guided left thoracentesis. There were no immediate complications.
[2017-04-24] MEDS ORDERED: Lidocaine 1% Inj (20ml) ONE (14:27)
--- NOTE | 2017-04-24 15:04 | PCM.SURG1 ---
Surgeon's Initial Post Op Note - Surgeon's Notes Surgeon: Clifford Friedman MD [employer] Worker: NONE Type of Anesthesia: Local Pre-Operative Diagnosis: Right pleura effusion, poor venous access Operative Findings: US showed large right effusion. Patent right basilic vein. Post-Operative Diagnosis: Right pleura effusion, poor venous access Operation Performed: US guided right thoracentesis. Placement of a dual lumen picc right basilic vein, tip in SVC. Lenght is 35 cm. Specimen/Specimens Removed: 1500 cc of straw colored fluid Estimated Blood Loss: EBL {In ML}: 2 Blood Products Given: N/A Drains Used: No Drains Post-Op Condition: Fair Date of Surgery/Procedure: 04/24/17 Time of Surgery/Procedure: 15:00
--- NOTE | 2017-04-24 15:37 | RAD ---
PROCEDURE: CHEST RADIOGRAPH, 1 VIEW HISTORY: Status post right thoracentesis and PICC COMPARISON: April 24, 2017. 07:55. FINDINGS: LUNGS: Consolidative change/compressive atelectasis right middle lobe right lower lobe. PLEURA: No appreciable change radiographically with respect large right pleural effusion. CARDIOVASCULAR: No radiographic findings to suggest acute or significant cardiovascular disease. PICC line in satisfactory position a new finding compared to the prior study. OSSEOUS STRUCTURES: No significant abnormalities. VISUALIZED UPPER ABDOMEN: Normal. OTHER FINDINGS: None. IMPRESSION: Status post right thoracentesis. No pneumothorax. Large residual right pleural effusion and underlying compressive atelectasis. Satisfactory position of recently placed PICC line.
[2017-04-24] MEDS ORDERED: Metoprolol 1 mg/ml Inj IVP ONE (15:46)
--- NOTE | 2017-04-24 16:41 | CP.PCM.PN ---
Subjective - Date & Time of Evaluation Date of Evaluation: 04/24/17 Time of Evaluation: 11:30 - Subjective Subjective: F/U Respiratory Failure Pt is s/p Left Thoracentesis from yesterday , had 2L of slightly bloody fluid removed, CXR today showed increased R pleural effusion. on NC 5L/m , awake, follows simple commands , talk few words , voice very low Objective - Vital Signs/Intake and Output Vital Signs (last 24 hours): Temp Pulse Resp BP Pulse Ox 98.8 F 104 H 31 H 129/69 94 L 04/24/17 15:50 04/24/17 16:03 04/24/17 16:03 04/24/17 16:03 04/24/17 16:03 Intake and Output: 04/24/17 04/24/17 06:59 18:59 Intake Total 330 400 Output Total 450 1500 Balance -120 -1100 - Medications Medications: Current Medications Acetylcysteine (Mucomyst 10% 4ml) 2 ml IH RTID [facility] Last Admin: 04/24/17 15:35 Dose: 2 ml Albuterol/Ipratropium (Duoneb 3 Mg/0.5 Mg (3 Ml) Ud) 3 ml INH RQID [facility] Last Admin: 04/24/17 15:36 Dose: 3 ml Digoxin (Lanoxin) 0.25 mg IVP DAILY [facility] Last Admin: 04/24/17 08:19 Dose: 0.25 mg Famotidine (Pepcid) 20 mg GT BID [facility] Last Admin: 04/22/17 09:27 Dose: Not Given Famotidine (Pepcid) 20 mg IVP Q12 [facility] Last Admin: 04/24/17 08:54 Dose: 20 mg Furosemide (Lasix) 20 mg IVP DAILY [facility] Last Admin: 04/24/17 08:54 Dose: 20 mg Heparin Sodium (Porcine) (Heparin) 5,000 units SC Q12 [facility] PRN Reason: Protocol Home Med (Dutasteride [Avodart]) 0.5 mg PO DAILY [facility] Last Admin: 04/24/17 08:20 Dose: Not Given Piperacillin Sod/Tazobactam (Sod 2.25 gm/ Sodium Chloride) 100 mls @ 100 mls/ hr IVPB Q8 [facility] Last Admin: 04/24/17 16:13 Dose: 100 mls/hr Lamotrigine (Lamictal) 25 mg PO BID [facility] Last Admin: 04/24/17 16:11 Dose: 25 mg Metoprolol Tartrate (Lopressor) 100 mg GT Q12 [facility] Last Admin: 04/22/17 09:27 Dose: Not Given Metoprolol Tartrate (Lopressor) 5 mg IVP Q4H [facility] Last Admin: 04/24/17 15:38 Dose: 5 mg Ondansetron HCl (Zofran Inj) 4 mg IVP Q6 PRN PRN Reason: Nausea/Vomiting - Labs Labs: 04/23/17 04:15 04/24/17 11:59 PT 16.4 Seconds (9.8-13.1) H 04/24/17 11:59 INR 1.4 (0.9-1.2) H 04/24/17 11:59 APTT 19.2 Seconds (25.6-37.1) L 04/24/17 11:59 - Constitutional Appears: Chronically Ill - Head Exam Head Exam: NORMAL INSPECTION - Eye Exam Eye Exam: PERRL - ENT Exam ENT Exam: Normal Exam - Neck Exam Neck Exam: Normal Inspection - Respiratory Exam Respiratory Exam: Decreased Breath Sounds (at bases), Rhonchi - Cardiovascular Exam Cardiovascular Exam: Irregular Rhythm - GI/Abdominal Exam GI & Abdominal Exam: Soft, Normal Bowel Sounds - Extremities Exam Extremities Exam: Pedal Edema (Edema U/E, L/E) - Neurological Exam Neurological Exam: Awake Additional comments: Awake , follows simple commands, limited movements all extremities, generalized weakness. - Psychiatric Exam Additional comments: Calm - Skin Skin Exam: Warm Assessment and Plan (1) Acute respiratory failure Status: Acute (2) Acute on chronic diastolic (congestive) heart failure Status: Acute (3) Pleural effusion Status: Acute (4) S/P thoracentesis Status: Acute (5) CANDELARIA (acute kidney injury) Status: Acute (6) HTN (hypertension) Status: Chronic (7) A-fib Status: Chronic (8) Sleep apnea Status: Chronic (9) Lung nodule Status: Acute (10) Hypernatremia Status: Resolved - Assessment and Plan (Free Text) Plan: Patient is s/p Left Thoracentesis yesterday , 2 L fluid were removed, CXR today 6-14 showed increase in R Pleural effusion , for R Thoracentesis and PICC line today , AFib rate 110-120 , Patient on Lopressor IV , Digoxin, continue DuoNeb , Zosyn . ICU Time: 40 min.
[2017-04-25] MEDS: Metoprolol 1 mg/ml Inj IVP SCH (01:52)
[2017-04-25 05:02] LABS: BASO # 0.1 K/uL (0.0-0.2); BASO % 0.7 % (0.0-2.0); EOS # 0.2 K/uL (0.0-0.7); EOS % 1.8 % (0.0-4.0); HEMATOCRIT 34.2 % (35.0-51.0); LYMPH # 0.5 K/uL (1.0-4.3); LYMPH % 5.2 % (20.0-40.0); MEAN CELL VOLUME 94.6 fl (80.0-94.0); MEAN CORPUSCULAR HEMOGLOBIN 30.1 pg (27.0-31.0); MEAN CORPUSCULAR HGB CONC 31.8 g/dL (33.0-37.0); MEAN PLATELET VOLUME 8.5 fl (7.2-11.7); MONO # 0.4 K/uL (0.0-0.8); MONO % 4.4 % (0.0-10.0); NEUT # 8.9 K/uL (1.8-7.0); NEUT % 87.9 % (50.0-75.0); RED CELL DISTRIBUTION WIDTH 14.9 % (11.5-14.5); WHITE BLOOD COUNT 10.2 K/uL (4.8-10.8)
[2017-04-25 05:10] LABS: ABG ALLEN TEST YES; ABG MECHANICAL RATE 18; ARTERIAL BLOOD GAS HCO3 33.6 mmol/L (21-28); ARTERIAL BLOOD GAS MODE BiPAP; ARTERIAL BLOOD GAS O2 CAPACITY 16.2 mL/dL (16-24); ARTERIAL BLOOD GAS O2 CONTENT 16.1 ML/dL (15-23); ARTERIAL BLOOD GAS PH 7.45 (7.35-7.45); ARTERIAL BLOOD GAS PO2 232 mm/Hg (80-100); ARTERIAL BLOOD HGB O2 SAT 97.3 % (95.0-98.0); CARBOXYHEMOGLOBIN 0.7 % (0.5-1.5); HHB 0.9 % (0.0-5.0); METHEMOGLOBIN 1.1 % (0.0-3.0)
[2017-04-25 05:16] LABS: ALB/GLOB RATIO 0.8 (1.0-2.1); BILIRUBIN,TOTAL 0.8 mg/dl (0.2-1.3); CALCIUM 8.3 mg/dL (8.4-10.2); POTASSIUM 4.2 MMOL/L (3.6-5.0); TOTAL PROTEIN 5.7 G/DL (6.3-8.2)
[2017-04-25 05:45] LABS: PARTIAL THROMBOPLASTIN TIME 26.3 Seconds (25.6-37.1)
[2017-04-25] MEDS: Albuterol-Ipratrop 3 mg / 0.5 (3 ml) UD INH SCH ×4 (08:08→19:47)
[2017-04-25] MEDS: Acetylcysteine 10% 4 ML IH SCH ×4 (08:08→19:47)
--- NOTE | 2017-04-25 09:06 | CP.PCM.PN ---
Subjective - Date & Time of Evaluation Date of Evaluation: 04/25/17 Time of Evaluation: 08:50 - Subjective Subjective: Awake, aware of his surroundings Being fed by his , swollow[place] well Responds to simple questions by nodding Had addl Rt pleural tap yesterday eventlessly X-ray chest this AM much improved over yesterday's A Fib at 80-100 BPM BP 126/70 mm Hg Pulse Ox 96% with O2 supplement Labs show persistent hypercarbia with normal pH (chr CO2 retainer) Hypoalbuminemia (2.4Gms) understands pt needs to be fed Warfarin was resumed/ Oral metoprolol was resumed Objective - Vital Signs/Intake and Output Vital Signs (last 24 hours): Temp Pulse Resp BP Pulse Ox 97.7 F 115 H 24 140/66 100 04/25/17 08:00 04/25/17 08:32 04/25/17 08:00 04/25/17 08:00 04/25/17 08:00 Intake and Output: 04/25/17 04/25/17 06:59 18:59 Intake Total 180 Output Total 250 Balance -70 - Medications Medications: Current Medications Acetylcysteine (Mucomyst 10% 4ml) 2 ml IH RTID [facility] Last Admin: 04/25/17 08:08 Dose: 2 ml Albuterol/Ipratropium (Duoneb 3 Mg/0.5 Mg (3 Ml) Ud) 3 ml INH RQID [facility] Last Admin: 04/25/17 08:08 Dose: 3 ml Digoxin (Lanoxin) 0.25 mg IVP DAILY [facility] Last Admin: 04/24/17 08:19 Dose: 0.25 mg Famotidine (Pepcid) 20 mg GT BID [facility] Last Admin: 04/22/17 09:27 Dose: Not Given Famotidine (Pepcid) 20 mg IVP Q12 [facility] Last Admin: 04/24/17 20:31 Dose: 20 mg Furosemide (Lasix) 20 mg IVP DAILY [facility] Last Admin: 04/24/17 08:54 Dose: 20 mg Heparin Sodium (Porcine) (Heparin) 5,000 units SC Q12 [facility] PRN Reason: Protocol Home Med (Dutasteride [Avodart]) 0.5 mg PO DAILY [facility] Last Admin: 04/24/17 08:20 Dose: Not Given Piperacillin Sod/Tazobactam (Sod 2.25 gm/ Sodium Chloride) 100 mls @ 100 mls/ hr IVPB Q8 [facility] Last Admin: 04/25/17 00:38 Dose: 100 mls/hr Dextrose (Dextrose 5% In Water 1000 Ml) 1,000 mls @ 80 mls/hr IV .[id number] [facility] Stop: 04/26/17 06:42 Lamotrigine (Lamictal) 25 mg PO BID [facility] Last Admin: 04/24/17 16:11 Dose: 25 mg Metoprolol Tartrate (Lopressor) 100 mg PO Q12 [facility] Ondansetron HCl (Zofran Inj) 4 mg IVP Q6 PRN PRN Reason: Nausea/Vomiting Warfarin Sodium (Coumadin) 5 mg PO QD5 [facility] PRN Reason: Protocol Stop: 04/25/17 17:01 - Labs Labs: 04/25/17 04:30 04/25/17 04:30 PT 16.2 Seconds (9.8-13.1) H 04/25/17 04:30 INR 1.4 (0.9-1.2) H 04/25/17 04:30 APTT 26.3 Seconds (25.6-37.1) D 04/25/17 04:30
[2017-04-25] MEDS: Digoxin 500 mcg/2ml (0.5 mg/2ml) Inj IVP SCH (09:17)
[2017-04-25] MEDS: Patient's Own Med (Dutasteride [Avodart] 0.5 MG) PO SCH (09:21)
--- NOTE | 2017-04-25 12:27 | CP.CCUPN ---
CCU Subjective - Physician Review Subjective (Free Text): Patient self extubated 04/21/17, on BiPAP 16/10, FIO2 100%, more readily opens eyes to verbal stimuli and appropriately responsive when off BiPAP, no pressors , no fever, events reviewed. Post Thoracentesis film showed recurrent atelectasis of RML RLL, aggressively suctioned and BiPAP increased to 16/10 and FiO2 increased. Subsequent CXR showed improved expansion of R lung and improved oxygenation. CCU Objective - Vital Signs / Intake & Output Vital Signs (Last 4 hours): Vital Signs Temp Pulse BP 04/25/17 11:54 97.7 F 04/25/17 11:33 113 H 04/25/17 09:18 137/85 04/25/17 08:32 115 H Intake and Output (Last 8hrs): Intake & Output 04/24/17 04/25/17 04/25/17 22:59 06:59 14:59 Intake Total 455 125 Output Total 2350 250 Balance -1895 -125 Intake: IV 15 25 Intake, Piggyback 400 100 Oral 40 Output: Urine 850 250 Urethral (Wang) 850 250 Other 1500 Other: # Bowel Movements 0 - Physical Exam Head: Positive for: Atraumatic, Normocephalic Pupils: Positive for: PERRL Conjunctiva: Positive for: Normal Mouth: Positive for: Moist Mucous Membranes Nose (External): Positive for: Atraumatic Nose (Internal): Positive for: Normal Inspection Neck: Positive for: Normal Range of Motion Respiratory/Chest: Positive for: Decreased Breath Sounds, Rhonchi Cardiovascular: Positive for: Irregular Rhythm Abdomen: Positive for: Normal Bowel Sounds Upper Extremity: Positive for: Edema, Neurovascularly Intact Lower Extremity: Positive for: Edema, NORMAL PULSES. Negative for: CALF TENDERNESS Neurological: Positive for: Other (on ventilator, opens eyes to verbal stimuli) Skin: Positive for: Other (Unstageable sacral ulcer) - Medications Active Medications: Active Medications Generic Name Dose Route Start Last Admin Trade Name Freq PRN Reason Stop Dose Admin Acetylcysteine 2 ml 04/16/17 20:00 04/25/17 11:30 Mucomyst 10% 4ml IH 2 ml RTID YUKI Administration Albuterol/Ipratropium 3 ml 04/22/17 16:00 04/25/17 11:28 Duoneb 3 Mg/0.5 Mg (3 Ml) Ud INH 3 ml RQID YUKI Administration Digoxin 0.25 mg 04/22/17 10:00 04/25/17 09:17 Lanoxin IVP 0.25 mg DAILY YUKI Administration Famotidine 20 mg 04/18/17 17:00 04/22/17 09:27 Pepcid GT Not Given BID YUKI Famotidine 20 mg 04/22/17 10:00 04/25/17 09:23 Pepcid IVP 20 mg Q12 YUKI Administration Furosemide 20 mg 04/18/17 09:00 04/25/17 09:18 Lasix IVP 20 mg DAILY YUKI Administration Heparin Sodium (Porcine) 5,000 units 04/25/17 09:00 04/25/17 09:16 Heparin SC 5,000 units Q12 YUKI Administration Protocol Home Med 0.5 mg 04/19/17 13:09 04/25/17 09:21 Dutasteride [Avodart] PO 0.5 mg DAILY YUKI Administration Piperacillin Sod/Tazobactam 100 mls @ 100 mls/hr 04/17/17 17:30 04/25/17 09: 19 Sod 2.25 gm/ Sodium Chloride IVPB 100 mls/hr Q8 YUKI Administration Dextrose 1,000 mls @ 80 mls/hr 04/25/17 06:42 Dextrose 5% In Water 1000 Ml IV 04/26/17 06:42 .[id number] [facility] Lamotrigine 25 mg 04/15/17 17:00 04/25/17 09:17 Lamictal PO 25 mg BID YUKI Administration Metoprolol Tartrate 100 mg 04/25/17 09:00 Lopressor PO Q12 YUKI Ondansetron HCl 4 mg 04/18/17 15:49 Zofran Inj IVP Q6 PRN Nausea/Vomiting Warfarin Sodium 5 mg 04/25/17 17:00 Coumadin PO 04/25/17 17:01 QD5 [facility] Protocol - Patient Studies Lab Studies: Lab Studies 04/25/17 04/25/17 04/25/17 Range/Units 05:07 04:30 04:30 WBC (4.8-10.8) K/uL RBC (4.40-5.90) Mil/uL Hgb (12.0-18.0) g/dL Hct (35.0-51.0) % MCV (80.0-94.0) fl MCH (27.0-31.0) pg MCHC (33.0-37.0) g/dL RDW (11.5-14.5) % Plt Count (130-400) K/uL MPV (7.2-11.7) fl Neut % (Auto) (50.0-75.0) % Lymph % (Auto) (20.0-40.0) % Haines % (Auto) (0.0-10.0) % Eos % (Auto) (0.0-4.0) % Baso % (Auto) (0.0-2.0) % Neut # (1.8-7.0) K/uL Lymph # (1.0-4.3) K/uL Haines # (0.0-0.8) K/uL Eos # (0.0-0.7) K/uL Baso # (0.0-0.2) K/uL PT (9.8-13.1) Seconds INR (0.9-1.2) APTT (25.6-37.1) Seconds pCO2 53 H (35-45) mm/Hg pO2 232 H (80-100) mm/Hg HCO3 33.6 H (21-28) mmol/L ABG pH 7.45 (7.35-7.45) ABG Total CO2 38.4 H (22-28) mmol/L ABG O2 Saturation 99.1 H (95-98) % ABG O2 Content 16.1 (15-23) ML/dL ABG Base Excess 11.1 H (-2.0-3.0) mmol/L ABG Hemoglobin 11.4 L (11.7-17.4) g/dL ABG Carboxyhemoglobin 0.7 (0.5-1.5) % POC ABG HHb (Measured) 0.9 (0.0-5.0) % ABG Methemoglobin 1.1 (0.0-3.0) % ABG O2 Capacity 16.2 (16-24) mL/dL Broderick Test Yes A-a O2 Difference 415.0 mm/Hg Hgb O2 Saturation 97.3 (95.0-98.0) % Vent Mode Bipap Mechanical Rate 18 FiO2 100.0 % Inspiratory BiPAP 16 Expiratory BiPAP 10 Sodium 153 H (132-148) mmol/l Potassium 4.2 (3.6-5.0) MMOL/L Chloride 109 H (98-107) mmol/L Carbon Dioxide 36 H (22-30) mmol/L Anion Gap 12 (10-20) BUN 49 H (9-20) mg/dl Creatinine 1.6 H (0.8-1.5) mg/dL Est GFR ( Amer) 51 Est GFR (Non-Af Amer) 42 Random Glucose 94 (75-110) mg/dL Lactic Acid 1.5 (0.7-2.1) MMOL/L Calcium 8.3 L (8.4-10.2) mg/dL Total Bilirubin 0.8 (0.2-1.3) mg/dl AST 28 (17-59) U/L ALT 30 (21-72) U/L Alkaline Phosphatase 78 (38-126) U/L Total Protein 5.7 L (6.3-8.2) G/DL Albumin 2.6 L (3.5-5.0) g/dL Globulin 3.2 (2.2-3.9) gm/dL Albumin/Globulin Ratio 0.8 L (1.0-2.1) 04/25/17 04/25/17 04/24/17 Range/Units 04:30 04:30 11:59 WBC 10.2 (4.8-10.8) K/uL RBC 3.62 L (4.40-5.90) Mil/uL Hgb 10.9 L (12.0-18.0) g/dL Hct 34.2 L (35.0-51.0) % MCV 94.6 H (80.0-94.0) fl MCH 30.1 (27.0-31.0) pg MCHC 31.8 L (33.0-37.0) g/dL RDW 14.9 H (11.5-14.5) % Plt Count 286 (130-400) K/uL MPV 8.5 (7.2-11.7) fl Neut % (Auto) 87.9 H (50.0-75.0) % Lymph % (Auto) 5.2 L (20.0-40.0) % Haines % (Auto) 4.4 (0.0-10.0) % Eos % (Auto) 1.8 (0.0-4.0) % Baso % (Auto) 0.7 (0.0-2.0) % Neut # 8.9 H (1.8-7.0) K/uL Lymph # 0.5 L (1.0-4.3) K/uL Haines # 0.4 (0.0-0.8) K/uL Eos # 0.2 (0.0-0.7) K/uL Baso # 0.1 (0.0-0.2) K/uL PT 16.2 H (9.8-13.1) Seconds INR 1.4 H (0.9-1.2) APTT 26.3 D (25.6-37.1) Seconds pCO2 (35-45) mm/Hg pO2 (80-100) mm/Hg HCO3 (21-28) mmol/L ABG pH (7.35-7.45) ABG Total CO2 (22-28) mmol/L ABG O2 Saturation (95-98) % ABG O2 Content (15-23) ML/dL ABG Base Excess (-2.0-3.0) mmol/L ABG Hemoglobin (11.7-17.4) g/dL ABG Carboxyhemoglobin (0.5-1.5) % POC ABG HHb (Measured) (0.0-5.0) % ABG Methemoglobin (0.0-3.0) % ABG O2 Capacity (16-24) mL/dL Broderick Test A-a O2 Difference mm/Hg Hgb O2 Saturation (95.0-98.0) % Vent Mode Mechanical Rate FiO2 % Inspiratory BiPAP Expiratory BiPAP Sodium 151 H (132-148) mmol/l Potassium 4.2 (3.6-5.0) MMOL/L Chloride 108 H (98-107) mmol/L Carbon Dioxide 34 H (22-30) mmol/L Anion Gap 13 (10-20) BUN 45 H (9-20) mg/dl Creatinine 1.5 (0.8-1.5) mg/dL Est GFR ( Amer) 55 Est GFR (Non-Af Amer) 45 Random Glucose 98 (75-110) mg/dL Lactic Acid (0.7-2.1) MMOL/L Calcium 8.4 (8.4-10.2) mg/dL Total Bilirubin 0.8 (0.2-1.3) mg/dl AST 27 (17-59) U/L ALT 27 (21-72) U/L Alkaline Phosphatase 83 (38-126) U/L Total Protein 6.0 L (6.3-8.2) G/DL Albumin 2.8 L (3.5-5.0) g/dL Globulin 3.3 (2.2-3.9) gm/dL Albumin/Globulin Ratio 0.8 L (1.0-2.1) 04/24/17 Range/Units 11:59 WBC (4.8-10.8) K/uL RBC (4.40-5.90) Mil/uL Hgb (12.0-18.0) g/dL Hct (35.0-51.0) % MCV (80.0-94.0) fl MCH (27.0-31.0) pg MCHC (33.0-37.0) g/dL RDW (11.5-14.5) % Plt Count (130-400) K/uL MPV (7.2-11.7) fl Neut % (Auto) (50.0-75.0) % Lymph % (Auto) (20.0-40.0) % Haines % (Auto) (0.0-10.0) % Eos % (Auto) (0.0-4.0) % Baso % (Auto) (0.0-2.0) % Neut # (1.8-7.0) K/uL Lymph # (1.0-4.3) K/uL Haines # (0.0-0.8) K/uL Eos # (0.0-0.7) K/uL Baso # (0.0-0.2) K/uL PT 16.4 H (9.8-13.1) Seconds INR 1.4 H (0.9-1.2) APTT 19.2 L (25.6-37.1) Seconds pCO2 (35-45) mm/Hg pO2 (80-100) mm/Hg HCO3 (21-28) mmol/L ABG pH (7.35-7.45) ABG Total CO2 (22-28) mmol/L ABG O2 Saturation (95-98) % ABG O2 Content (15-23) ML/dL ABG Base Excess (-2.0-3.0) mmol/L ABG Hemoglobin (11.7-17.4) g/dL ABG Carboxyhemoglobin (0.5-1.5) % POC ABG HHb (Measured) (0.0-5.0) % ABG Methemoglobin (0.0-3.0) % ABG O2 Capacity (16-24) mL/dL Broderick Test A-a O2 Difference mm/Hg Hgb O2 Saturation (95.0-98.0) % Vent Mode Mechanical Rate FiO2 % Inspiratory BiPAP Expiratory BiPAP Sodium (132-148) mmol/l Potassium (3.6-5.0) MMOL/L Chloride (98-107) mmol/L Carbon Dioxide (22-30) mmol/L Anion Gap (10-20) BUN (9-20) mg/dl Creatinine (0.8-1.5) mg/dL Est GFR ( Amer) Est GFR (Non-Af Amer) Random Glucose (75-110) mg/dL Lactic Acid (0.7-2.1) MMOL/L Calcium (8.4-10.2) mg/dL Total Bilirubin (0.2-1.3) mg/dl AST (17-59) U/L ALT (21-72) U/L Alkaline Phosphatase (38-126) U/L Total Protein (6.3-8.2) G/DL Albumin (3.5-5.0) g/dL Globulin (2.2-3.9) gm/dL Albumin/Globulin Ratio (1.0-2.1) Laboratory Results - last 24 hr 04/24/17 04/24/17 04/25/17 11:59 11:59 04:30 WBC 10.2 RBC 3.62 L Hgb 10.9 L Hct 34.2 L MCV 94.6 H MCH 30.1 MCHC 31.8 L RDW 14.9 H Plt Count 286 MPV 8.5 Neut % (Auto) 87.9 H Lymph % (Auto) 5.2 L Haines % (Auto) 4.4 Eos % (Auto) 1.8 Baso % (Auto) 0.7 Neut # 8.9 H Lymph # 0.5 L Haines # 0.4 Eos # 0.2 Baso # 0.1 PT 16.4 H INR 1.4 H APTT 19.2 L pCO2 pO2 HCO3 ABG pH ABG Total CO2 ABG O2 Saturation ABG O2 Content ABG Base Excess ABG Hemoglobin ABG Carboxyhemoglobin POC ABG HHb (Measured) ABG Methemoglobin ABG O2 Capacity Broderick Test A-a O2 Difference Hgb O2 Saturation Vent Mode Mechanical Rate FiO2 Inspiratory BiPAP Expiratory BiPAP Sodium 151 H Potassium 4.2 Chloride 108 H Carbon Dioxide 34 H Anion Gap 13 BUN 45 H Creatinine 1.5 Est GFR ( Amer) 55 Est GFR (Non-Af Amer) 45 Random Glucose 98 Lactic Acid Calcium 8.4 Total Bilirubin 0.8 AST 27 ALT 27 Alkaline Phosphatase 83 Total Protein 6.0 L Albumin 2.8 L Globulin 3.3 Albumin/Globulin Ratio 0.8 L 04/25/17 04/25/17 04/25/17 04:30 04:30 04:30 WBC RBC Hgb Hct MCV MCH MCHC RDW Plt Count MPV Neut % (Auto) Lymph % (Auto) Haines % (Auto) Eos % (Auto) Baso % (Auto) Neut # Lymph # Haines # Eos # Baso # PT 16.2 H INR 1.4 H APTT 26.3 D pCO2 pO2 HCO3 ABG pH ABG Total CO2 ABG O2 Saturation ABG O2 Content ABG Base Excess ABG Hemoglobin ABG Carboxyhemoglobin POC ABG HHb (Measured) ABG Methemoglobin ABG O2 Capacity Broderick Test A-a O2 Difference Hgb O2 Saturation Vent Mode Mechanical Rate FiO2 Inspiratory BiPAP Expiratory BiPAP Sodium 153 H Potassium 4.2 Chloride 109 H Carbon Dioxide 36 H Anion Gap 12 BUN 49 H Creatinine 1.6 H Est GFR ( Amer) 51 Est GFR (Non-Af Amer) 42 Random Glucose 94 Lactic Acid 1.5 Calcium 8.3 L Total Bilirubin 0.8 AST 28 ALT 30 Alkaline Phosphatase 78 Total Protein 5.7 L Albumin 2.6 L Globulin 3.2 Albumin/Globulin Ratio 0.8 L 04/25/17 05:07 WBC RBC Hgb Hct MCV MCH MCHC RDW Plt Count MPV Neut % (Auto) Lymph % (Auto) Haines % (Auto) Eos % (Auto) Baso % (Auto) Neut # Lymph # Haines # Eos # Baso # PT INR APTT pCO2 53 H pO2 232 H HCO3 33.6 H ABG pH 7.45 ABG Total CO2 38.4 H ABG O2 Saturation 99.1 H ABG O2 Content 16.1 ABG Base Excess 11.1 H ABG Hemoglobin 11.4 L ABG Carboxyhemoglobin 0.7 POC ABG HHb (Measured) 0.9 ABG Methemoglobin 1.1 ABG O2 Capacity 16.2 Broderick Test Yes A-a O2 Difference 415.0 Hgb O2 Saturation 97.3 Vent Mode Bipap Mechanical Rate 18 FiO2 100.0 Inspiratory BiPAP 16 Expiratory BiPAP 10 Sodium Potassium Chloride Carbon Dioxide Anion Gap BUN Creatinine Est GFR ( Amer) Est GFR (Non-Af Amer) Random Glucose Lactic Acid Calcium Total Bilirubin AST ALT Alkaline Phosphatase Total Protein Albumin Globulin Albumin/Globulin Ratio Radiology Interpretations (Free Text): R basal atelectasis and residual effusions bilaterally (my Interp). Fingerstick Blood Sugar Results: 202 Review of Systems - Review of Systems All systems: reviewed and no additional remarkable complaints except - Cardiovascular Cardiovascular: Leg Edema, Pedal Edema. absent: Chest Pain - Respiratory Respiratory: Dyspnea on Exertion - Gastrointestinal Gastrointestinal: UNREMARKABLE - Genitourinary Genitourinary: UNREMARKABLE - Neurological Neurological: absent: Dizziness, Focal Weakness, Headaches Critical Care Progress Note - Nutrition Nutrition: Nutrition Category Date Time Status Dysphagia/Modified Consistency Diet [DIET] Diets 04/24/17 Dinner Active Assessment/Plan - Assessment and Plan (Free Text) Assessment: Acute Hypoxemic Respiratory failure 2 bilat effusions Atelectasis / pneumonia / tracheobronchitis Azotemia and Hypernatremia Dementia A Fib with RVR Plan: - See orders - ventilatory support on BiPAP post self-extubation - frequent suctioning and chest physiotherapy / vibropercussion as tolerated. - Reprieve off BiPAP Q4H as tolerated on nasal cannula. Could even try HFNC. - Continue meds: Lopressor increased to IV Q4H Addl Digoxin PRN for rate control . - D5W IVF started.
--- NOTE | 2017-04-25 14:20 | RAD ---
HISTORY: f/u R Lobar atelectasis COMPARISON: Comparison chest 04/24/2017 FINDINGS: LUNGS: Bibasilar opacities consistent with bilateral effusions however concomitant atelectasis and or infiltrates suspected as well. No change right sided PICC line. The right lung apex and portion of the medial aspect left lung apex partially obscured by overlying facial soft tissue and mandible artifact. PLEURA: Note that No apparent pneumothorax. CARDIOVASCULAR: Cardiomegaly. OSSEOUS STRUCTURES: No significant abnormalities. VISUALIZED UPPER ABDOMEN: Normal. OTHER FINDINGS: None. IMPRESSION: Bibasilar opacities consistent with bilateral effusions however concomitant atelectasis and or infiltrates suspected as well. No change right sided PICC line.
--- NOTE | 2017-04-25 15:41 | VASCULAR ---
PROCEDURE: Date of procedure: 04/24/2017 Procedure: 1. Placement of a right arm PICC with ultrasound and fluoroscopic guidance, CPT 66128 2. PICC tip confirmation with spot radiograph and is in the superior vena cava Medications: 1 percent lidocaine Total Fluoro time: 9.6 seconds Radiation: 1.83 mGy EBL: 2 cc HISTORY: Poor venous access TECHNIQUE: Following informed consent and procedure time-out, the patient was placed supine on the interventional table and the right arm prepped and draped in the usual sterile fashion. Ultrasound showed a patent and compressible right basilic vein. After the skin was anesthetized with lidocaine, the basilic vein was accessed with micro micropuncture technique using ultrasound guidance. A guidewire was then advanced under fluoroscopic guidance into the superior vena cava. An image documenting ultrasound guidance for vascular access was permanently saved. The length of the dual-lumen 4 [place] PICC was trimmed to 37 centimeters and advanced through a peel-away sheath. The PICC was position with tip of PICC confirm a spot radiograph the superior vena cava. The PICC was secured to the patient's skin. The PICC was flushed. A biopatch and sterile dressing was applied. IMPRESSION: Placement of a dual-lumen 4 [place] PICC trimmed to 35 centimeters via right basilic vein. The tip of the PICC is confirmed with spot radiograph and is in the superior vena cava.
--- NOTE | 2017-04-25 15:48 | RAD ---
HISTORY: F/U EFFUSION, ATELECTASIS COMPARISON: Comparison chest 04/24/2017 at 1611 hours FINDINGS: LUNGS: No change right-sided PICC line with tip in the SVC. Slightly improved vascular congestive changes. Persistent bilateral lower lobe atelectasis and right greater than left. Bilateral effusions right greater left slightly improved as well. PLEURA: No significant pleural effusion identified, no pneumothorax apparent. CARDIOVASCULAR: Normal. OSSEOUS STRUCTURES: No significant abnormalities. VISUALIZED UPPER ABDOMEN: Normal. OTHER FINDINGS: None. IMPRESSION: No change right-sided PICC line with tip in the SVC. Slightly improved vascular congestive changes. Persistent bilateral lower lobe atelectasis and right greater than left. Bilateral effusions right greater left slightly improved as well.
--- NOTE | 2017-04-25 16:15 | CP.PCM.PN ---
Subjective - Date & Time of Evaluation Date of Evaluation: 04/25/17 Time of Evaluation: 10:30 - Subjective Subjective: F/U Respiratory failure Awake , o N/C , able to talk, follows commands, eating with help of his , had R Thoracentesis yesterday Objective - Vital Signs/Intake and Output Vital Signs (last 24 hours): Temp Pulse Resp BP Pulse Ox 97.7 F 119 H 24 137/85 100 04/25/17 11:54 04/25/17 15:52 04/25/17 08:00 04/25/17 09:18 04/25/17 08:00 Intake and Output: 04/25/17 04/25/17 06:59 18:59 Intake Total 180 Output Total 250 Balance -70 - Medications Medications: Current Medications Acetylcysteine (Mucomyst 10% 4ml) 2 ml IH RTID [facility] Last Admin: 04/25/17 14:12 Dose: Not Given Albuterol/Ipratropium (Duoneb 3 Mg/0.5 Mg (3 Ml) Ud) 3 ml INH RQID [facility] Last Admin: 04/25/17 15:52 Dose: 3 ml Digoxin (Lanoxin) 0.25 mg IVP DAILY [facility] Last Admin: 04/25/17 09:17 Dose: 0.25 mg Famotidine (Pepcid) 20 mg GT BID [facility] Last Admin: 04/22/17 09:27 Dose: Not Given Famotidine (Pepcid) 20 mg IVP Q12 [facility] Last Admin: 04/25/17 09:23 Dose: 20 mg Furosemide (Lasix) 20 mg IVP DAILY [facility] Last Admin: 04/25/17 09:18 Dose: 20 mg Heparin Sodium (Porcine) (Heparin) 5,000 units SC Q12 [facility] PRN Reason: Protocol Last Admin: 04/25/17 09:16 Dose: 5,000 units Home Med (Dutasteride [Avodart]) 0.5 mg PO DAILY [facility] Last Admin: 04/25/17 09:21 Dose: 0.5 mg Piperacillin Sod/Tazobactam (Sod 2.25 gm/ Sodium Chloride) 100 mls @ 100 mls/ hr IVPB Q8 [facility] Last Admin: 04/25/17 09:19 Dose: 100 mls/hr Dextrose (Dextrose 5% In Water 1000 Ml) 1,000 mls @ 80 mls/hr IV .[id number] [facility] Stop: 04/26/17 06:42 Lamotrigine (Lamictal) 25 mg PO BID [facility] Last Admin: 04/25/17 09:17 Dose: 25 mg Metoprolol Tartrate (Lopressor) 100 mg PO Q12 [facility] Ondansetron HCl (Zofran Inj) 4 mg IVP Q6 PRN PRN Reason: Nausea/Vomiting Warfarin Sodium (Coumadin) 5 mg PO QD5 [facility]UKI PRN Reason: Protocol Stop: 04/25/17 17:01 - Labs Labs: 04/25/17 04:30 04/25/17 04:30 PT 16.2 Seconds (9.8-13.1) H 04/25/17 04:30 INR 1.4 (0.9-1.2) H 04/25/17 04:30 APTT 26.3 Seconds (25.6-37.1) D 04/25/17 04:30 - Constitutional Appears: Chronically Ill - Head Exam Head Exam: NORMAL INSPECTION - Eye Exam Eye Exam: PERRL - ENT Exam ENT Exam: Normal Exam - Neck Exam Neck Exam: Normal Inspection - Respiratory Exam Respiratory Exam: Decreased Breath Sounds (at bases), Rales (at bases), Rhonchi (bases) - Cardiovascular Exam Cardiovascular Exam: Irregular Rhythm - GI/Abdominal Exam GI & Abdominal Exam: Soft, Normal Bowel Sounds - Extremities Exam Extremities Exam: Pedal Edema (Edema U/E, L/E) - Neurological Exam Neurological Exam: Awake Additional comments: Follows simple commands,limited movements all extremities, generalized weakness. - Psychiatric Exam Additional comments: Calm - Skin Skin Exam: Warm Assessment and Plan (1) Acute respiratory failure Status: Acute (2) Acute on chronic diastolic (congestive) heart failure Status: Acute (3) Pleural effusion Status: Acute (4) S/P thoracentesis Status: Acute (5) CANDELARIA (acute kidney injury) Status: Acute (6) HTN (hypertension) Status: Chronic (7) A-fib Status: Chronic (8) Sleep apnea Status: Chronic (9) Lung nodule Status: Acute (10) Hypernatremia Status: Resolved - Assessment and Plan (Free Text) Plan: improved after R Thoracentesis , on NC, Heart rate with better control, continue Coumadin, Duo Neb, Zosyn and rest of treatment ICU Time: 40 min.
[2017-04-26 05:25] LABS: HEMATOCRIT 35.3 % (35.0-51.0); MEAN CELL VOLUME 95.7 fl (80.0-94.0); MEAN CORPUSCULAR HEMOGLOBIN 29.9 pg (27.0-31.0); MEAN CORPUSCULAR HGB CONC 31.3 g/dL (33.0-37.0); RED CELL DISTRIBUTION WIDTH 15.3 % (11.5-14.5); WHITE BLOOD COUNT 9.4 K/uL (4.8-10.8)
[2017-04-26 05:40] LABS: ALB/GLOB RATIO 0.9 (1.0-2.1); CALCIUM 8.2 mg/dL (8.4-10.2); TOTAL PROTEIN 5.8 G/DL (6.3-8.2)
[2017-04-26 05:42] LABS: ABG ALLEN TEST YES; ABG MECHANICAL RATE 18; ARTERIAL BLOOD GAS HCO3 33.5 mmol/L (21-28); ARTERIAL BLOOD GAS MODE BiPAP; ARTERIAL BLOOD GAS O2 CAPACITY 16.1 mL/dL (16-24); ARTERIAL BLOOD GAS O2 CONTENT 15.9 ML/dL (15-23); ARTERIAL BLOOD GAS PH 7.43 (7.35-7.45); ARTERIAL BLOOD GAS PO2 202 mm/Hg (80-100); ARTERIAL BLOOD HGB O2 SAT 96.9 % (95.0-98.0); CARBOXYHEMOGLOBIN 0.6 % (0.5-1.5); HHB 1.3 % (0.0-5.0); METHEMOGLOBIN 1.2 % (0.0-3.0)
[2017-04-26] MEDS: Acetylcysteine 10% 4 ML IH SCH ×3 (07:28→19:16)
[2017-04-26] MEDS: Albuterol-Ipratrop 3 mg / 0.5 (3 ml) UD INH SCH ×4 (07:28→19:16)
[2017-04-26] MEDS: Patient's Own Med (Dutasteride [Avodart] 0.5 MG) PO SCH (08:25)
[2017-04-26] MEDS: Digoxin 500 mcg/2ml (0.5 mg/2ml) Inj IVP SCH (08:26)
[2017-04-26 08:31] VITALS: PULSE 82
--- NOTE | 2017-04-26 09:03 | CP.PCM.PN ---
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 Has severe card/pulm dysfunction INR 1.5 (warfarin ordered) understands the pt needs to be fed Objective - Vital Signs/Intake and Output Vital Signs (last 24 hours): Temp Pulse Resp BP Pulse Ox 97.6 F 82 22 145/82 100 04/26/17 07:35 04/26/17 08:28 04/26/17 07:35 04/26/17 08:28 04/26/17 07:35 Intake and Output: 04/26/17 04/26/17 06:59 18:59 Intake Total 925 Output Total 400 Balance 525 - Medications Medications: Current Medications Acetylcysteine (Mucomyst 10% 4ml) 2 ml IH RTID [facility] Last Admin: 04/26/17 07:28 Dose: 2 ml Albuterol/Ipratropium (Duoneb 3 Mg/0.5 Mg (3 Ml) Ud) 3 ml INH RQID [facility] Last Admin: 04/26/17 07:28 Dose: 3 ml Famotidine (Pepcid) 20 mg GT BID [facility] Last Admin: 04/22/17 09:27 Dose: Not Given Furosemide (Lasix) 20 mg IVP DAILY [facility] Last Admin: 04/26/17 08:27 Dose: 20 mg Heparin Sodium (Porcine) (Heparin) 5,000 units SC Q12 [facility] PRN Reason: Protocol Last Admin: 04/26/17 08:25 Dose: 5,000 units Home Med (Dutasteride [Avodart]) 0.5 mg PO DAILY [facility] Last Admin: 04/26/17 08:25 Dose: 0.5 mg Piperacillin Sod/Tazobactam (Sod 2.25 gm/ Sodium Chloride) 100 mls @ 100 mls/ hr IVPB Q8 [facility] Last Admin: 04/26/17 08:30 Dose: 100 mls/hr Lamotrigine (Lamictal) 25 mg PO BID [facility] Last Admin: 04/26/17 08:25 Dose: 25 mg Metoprolol Tartrate (Lopressor) 100 mg PO Q12 [facility] Last Admin: 04/26/17 08:28 Dose: 100 mg Ondansetron HCl (Zofran Inj) 4 mg IVP Q6 PRN PRN Reason: Nausea/Vomiting Warfarin Sodium (Coumadin) 5 mg PO QD5 [facility] PRN Reason: Protocol Stop: 04/26/17 17:01 - Labs Labs: 04/26/17 04:45 04/26/17 04:45 PT 16.5 Seconds (9.8-13.1) H 04/26/17 04:45 INR 1.5 (0.9-1.2) H 04/26/17 04:45 APTT 26.3 Seconds (25.6-37.1) D 04/25/17 04:30
--- NOTE | 2017-04-26 12:10 | CP.CCUPN ---
CCU Subjective - Physician Review Subjective (Free Text): Patient self extubated 04/21/17, on BiPAP 26/08, FIO2 70% overnight and tolerating reprieves off BiPAP onto 3 LPM nasal cannula. When off BiPAP, more readily opens eyes to verbal stimuli and appropriately responsive. Has been having increasing frequency of pauses lasting up to 3 seconds and HR in the 60 s. He is off Digoxin as of today and Lopressor held. CCU Objective - Vital Signs / Intake & Output Vital Signs (Last 4 hours): Vital Signs Temp Pulse Resp BP Pulse Ox 04/26/17 11:48 98.3 F 78 23 124/70 100 04/26/17 10:00 68 24 125/40 L 100 04/26/17 08:28 82 145/82 04/26/17 08:27 145/82 Intake and Output (Last 8hrs): Intake & Output 04/25/17 04/26/17 04/26/17 22:59 06:59 14:59 Intake Total 265 660 540 Output Total 400 300 Balance 265 260 240 Weight 172 lb 11.2 oz Intake: IV 240 560 340 Intake, Piggyback 100 Oral 25 200 Output: Urine 400 300 Urethral (Wang) 400 300 Other: # Bowel Movements 1 - Physical Exam Head: Positive for: Atraumatic, Normocephalic Pupils: Positive for: PERRL Conjunctiva: Positive for: Normal Mouth: Positive for: Moist Mucous Membranes Nose (External): Positive for: Atraumatic Nose (Internal): Positive for: Normal Inspection Neck: Positive for: Normal Range of Motion Respiratory/Chest: Positive for: Decreased Breath Sounds, Rhonchi Cardiovascular: Positive for: Irregular Rhythm Abdomen: Positive for: Normal Bowel Sounds Upper Extremity: Positive for: Edema, Neurovascularly Intact Lower Extremity: Positive for: Edema, NORMAL PULSES. Negative for: CALF TENDERNESS Neurological: Positive for: Other (on ventilator, opens eyes to verbal stimuli) Skin: Positive for: Other (Unstageable sacral ulcer) - Medications Active Medications: Active Medications Generic Name Dose Route Start Last Admin Trade Name Freq PRN Reason Stop Dose Admin Acetylcysteine 2 ml 04/16/17 20:00 04/26/17 07:28 Mucomyst 10% 4ml IH 2 ml RTID YUKI Administration Albuterol/Ipratropium 3 ml 04/22/17 16:00 04/26/17 11:06 Duoneb 3 Mg/0.5 Mg (3 Ml) Ud INH 3 ml RQID YUKI Administration Famotidine 20 mg 04/18/17 17:00 04/26/17 09:48 Pepcid GT 20 mg BID YUKI Administration Furosemide 20 mg 04/18/17 09:00 04/26/17 08:27 Lasix IVP 20 mg DAILY YUKI Administration Heparin Sodium (Porcine) 5,000 units 04/25/17 09:00 04/26/17 08:25 Heparin SC 5,000 units Q12 YUKI Administration Protocol Home Med 0.5 mg 04/19/17 13:09 04/26/17 08:25 Dutasteride [Avodart] PO 0.5 mg DAILY YUKI Administration Piperacillin Sod/Tazobactam 100 mls @ 100 mls/hr 04/17/17 17:30 04/26/17 08: 30 Sod 2.25 gm/ Sodium Chloride IVPB 100 mls/hr Q8 YUKI Administration Dextrose 1,000 mls @ 100 mls/hr 04/26/17 10:59 04/26/17 10:00 Dextrose 5% In Water 1000 Ml IV 04/28/17 11:00 100 mls/hr .Q10H YUKI Administration Lamotrigine 25 mg 04/15/17 17:00 04/26/17 08:25 Lamictal PO 25 mg BID YUKI Administration Metoprolol Tartrate 100 mg 04/25/17 09:00 04/26/17 08:28 Lopressor PO 100 mg Q12 YUKI Administration Ondansetron HCl 4 mg 04/18/17 15:49 Zofran Inj IVP Q6 PRN Nausea/Vomiting Warfarin Sodium 5 mg 04/26/17 17:00 Coumadin PO 04/26/17 17:01 QD5 [facility] Protocol - Patient Studies Lab Studies: Lab Studies 04/26/17 04/26/17 04/26/17 Range/Units 05:20 04:45 04:45 WBC 9.4 (4.8-10.8) K/uL RBC 3.70 L (4.40-5.90) Mil/uL Hgb 11.1 L (12.0-18.0) g/dL Hct 35.3 (35.0-51.0) % MCV 95.7 H (80.0-94.0) fl MCH 29.9 (27.0-31.0) pg MCHC 31.3 L (33.0-37.0) g/dL RDW 15.3 H (11.5-14.5) % Plt Count 266 (130-400) K/uL PT (9.8-13.1) Seconds INR (0.9-1.2) pCO2 56 H (35-45) mm/Hg pO2 202 H (80-100) mm/Hg HCO3 33.5 H (21-28) mmol/L ABG pH 7.43 (7.35-7.45) ABG Total CO2 38.9 H (22-28) mmol/L ABG O2 Saturation 98.7 H (95-98) % ABG O2 Content 15.9 (15-23) ML/dL ABG Base Excess 11.0 H (-2.0-3.0) mmol/L ABG Hemoglobin 11.3 L (11.7-17.4) g/dL ABG Carboxyhemoglobin 0.6 (0.5-1.5) % POC ABG HHb (Measured) 1.3 (0.0-5.0) % ABG Methemoglobin 1.2 (0.0-3.0) % ABG O2 Capacity 16.1 (16-24) mL/dL Broderick Test Yes A-a O2 Difference 441.0 mm/Hg Hgb O2 Saturation 96.9 (95.0-98.0) % Vent Mode Bipap Mechanical Rate 18 FiO2 100.0 % Inspiratory BiPAP 16 Expiratory BiPAP 10 Sodium 153 H (132-148) mmol/l Potassium 4.0 (3.6-5.0) MMOL/L Chloride 109 H (98-107) mmol/L Carbon Dioxide 36 H (22-30) mmol/L Anion Gap 12 (10-20) BUN 54 H (9-20) mg/dl Creatinine 1.7 H (0.8-1.5) mg/dL Est GFR ( Amer) 47 Est GFR (Non-Af Amer) 39 Random Glucose 129 H (75-110) mg/dL Calcium 8.2 L (8.4-10.2) mg/dL Total Bilirubin 1.0 (0.2-1.3) mg/dl AST 25 (17-59) U/L ALT 30 (21-72) U/L Alkaline Phosphatase 81 (38-126) U/L Total Protein 5.8 L (6.3-8.2) G/DL Albumin 2.7 L (3.5-5.0) g/dL Globulin 3.1 (2.2-3.9) gm/dL Albumin/Globulin Ratio 0.9 L (1.0-2.1) 04/26/17 Range/Units 04:45 WBC (4.8-10.8) K/uL RBC (4.40-5.90) Mil/uL Hgb (12.0-18.0) g/dL Hct (35.0-51.0) % MCV (80.0-94.0) fl MCH (27.0-31.0) pg MCHC (33.0-37.0) g/dL RDW (11.5-14.5) % Plt Count (130-400) K/uL PT 16.5 H (9.8-13.1) Seconds INR 1.5 H (0.9-1.2) pCO2 (35-45) mm/Hg pO2 (80-100) mm/Hg HCO3 (21-28) mmol/L ABG pH (7.35-7.45) ABG Total CO2 (22-28) mmol/L ABG O2 Saturation (95-98) % ABG O2 Content (15-23) ML/dL ABG Base Excess (-2.0-3.0) mmol/L ABG Hemoglobin (11.7-17.4) g/dL ABG Carboxyhemoglobin (0.5-1.5) % POC ABG HHb (Measured) (0.0-5.0) % ABG Methemoglobin (0.0-3.0) % ABG O2 Capacity (16-24) mL/dL Broderick Test A-a O2 Difference mm/Hg Hgb O2 Saturation (95.0-98.0) % Vent Mode Mechanical Rate FiO2 % Inspiratory BiPAP Expiratory BiPAP Sodium (132-148) mmol/l Potassium (3.6-5.0) MMOL/L Chloride (98-107) mmol/L Carbon Dioxide (22-30) mmol/L Anion Gap (10-20) BUN (9-20) mg/dl Creatinine (0.8-1.5) mg/dL Est GFR ( Amer) Est GFR (Non-Af Amer) Random Glucose (75-110) mg/dL Calcium (8.4-10.2) mg/dL Total Bilirubin (0.2-1.3) mg/dl AST (17-59) U/L ALT (21-72) U/L Alkaline Phosphatase (38-126) U/L Total Protein (6.3-8.2) G/DL Albumin (3.5-5.0) g/dL Globulin (2.2-3.9) gm/dL Albumin/Globulin Ratio (1.0-2.1) Laboratory Results - last 24 hr 04/26/17 04/26/17 04/26/17 04:45 04:45 04:45 WBC 9.4 RBC 3.70 L Hgb 11.1 L Hct 35.3 MCV 95.7 H MCH 29.9 MCHC 31.3 L RDW 15.3 H Plt Count 266 PT 16.5 H INR 1.5 H pCO2 pO2 HCO3 ABG pH ABG Total CO2 ABG O2 Saturation ABG O2 Content ABG Base Excess ABG Hemoglobin ABG Carboxyhemoglobin POC ABG HHb (Measured) ABG Methemoglobin ABG O2 Capacity Broderick Test A-a O2 Difference Hgb O2 Saturation Vent Mode Mechanical Rate FiO2 Inspiratory BiPAP Expiratory BiPAP Sodium 153 H Potassium 4.0 Chloride 109 H Carbon Dioxide 36 H Anion Gap 12 BUN 54 H Creatinine 1.7 H Est GFR ( Amer) 47 Est GFR (Non-Af Amer) 39 Random Glucose 129 H Calcium 8.2 L Total Bilirubin 1.0 AST 25 ALT 30 Alkaline Phosphatase 81 Total Protein 5.8 L Albumin 2.7 L Globulin 3.1 Albumin/Globulin Ratio 0.9 L 04/26/17 05:20 WBC RBC Hgb Hct MCV MCH MCHC RDW Plt Count PT INR pCO2 56 H pO2 202 H HCO3 33.5 H ABG pH 7.43 ABG Total CO2 38.9 H ABG O2 Saturation 98.7 H ABG O2 Content 15.9 ABG Base Excess 11.0 H ABG Hemoglobin 11.3 L ABG Carboxyhemoglobin 0.6 POC ABG HHb (Measured) 1.3 ABG Methemoglobin 1.2 ABG O2 Capacity 16.1 Broderick Test Yes A-a O2 Difference 441.0 Hgb O2 Saturation 96.9 Vent Mode Bipap Mechanical Rate 18 FiO2 100.0 Inspiratory BiPAP 16 Expiratory BiPAP 10 Sodium Potassium Chloride Carbon Dioxide Anion Gap BUN Creatinine Est GFR ( Amer) Est GFR (Non-Af Amer) Random Glucose Calcium Total Bilirubin AST ALT Alkaline Phosphatase Total Protein Albumin Globulin Albumin/Globulin Ratio Fingerstick Blood Sugar Results: 202 Review of Systems - Review of Systems All systems: reviewed and no additional remarkable complaints except - EENT Eyes: absent: Change in Vision - Cardiovascular Cardiovascular: Irregular Heart Rhythm, Slow Heart Rate. absent: Chest Pain, Dyspnea - Respiratory Respiratory: Chest Congestion. absent: Pain with Coughing - Neurological Neurological: absent: Numbness, Focal Weakness, Headaches, Paresthesias Critical Care Progress Note - Extremities/Vascular Does the Patient have a Central Venous Catheter?: Yes Insertion Site: Axillary Vein Does the Patient need a Central Venous Catheter?: Yes Does the Patient have a Wang Catheter?: Yes Does the Patient need a Wang Catheter?: Yes Catheter Insertion Criteria: Need for accurate measurement of output in critically ill patient - Prophylaxis GI Prophylaxis GI: Pepsid - Prophylaxis DVT Prophylaxis DVT: Heparin SQ - Nutrition Nutrition: Nutrition Category Date Time Status Dysphagia/Modified Consistency Diet [DIET] Diets 04/24/17 Dinner Active Assessment/Plan - Assessment and Plan (Free Text) Assessment: Acute Hypoxemic Respiratory failure 2 bilat effusions; and with Atelectasis / pneumonia / tracheobronchitis Azotemia and Hypernatremia A Fib with slow VR and pauses Dementia Plan: - See orders - ventilatory support on BiPAP during NIGHTTIME. - frequent suctioning and chest physiotherapy / vibropercussion as tolerated. - Reprieve off BiPAP Q4H as tolerated on nasal cannula. Could even try HFNC. - Lopressor increased previously to q4h, will hold the next few doses and resume when HR is above 100. D5W IVF started. _ cautious PO feedings, assists with meals , informed of need for caution with PO meals, and to watch ofr any or excessive coughing, drooling.
--- NOTE | 2017-04-26 16:59 | CP.PCM.PN ---
Subjective - Date & Time of Evaluation Date of Evaluation: 04/26/17 Time of Evaluation: 12:00 - Subjective Subjective: F/U Respiratory Failure Smiling ,no AD , able to talk , on BIPAP at night , on O2 N/C now , No AD, Patient's and friends at bedside Objective - Vital Signs/Intake and Output Vital Signs (last 24 hours): Temp Pulse Resp BP Pulse Ox 97.7 F 82 22 146/86 100 04/26/17 15:53 04/26/17 15:53 04/26/17 15:53 04/26/17 15:53 04/26/17 15:53 Intake and Output: 04/26/17 04/26/17 06:59 18:59 Intake Total 925 1040 Output Total 400 550 Balance 525 490 - Medications Medications: Current Medications Acetylcysteine (Mucomyst 10% 4ml) 2 ml IH RTID [facility] Last Admin: 04/26/17 16:02 Dose: 2 ml Albuterol/Ipratropium (Duoneb 3 Mg/0.5 Mg (3 Ml) Ud) 3 ml INH RQID [facility] Last Admin: 04/26/17 16:02 Dose: 3 ml Famotidine (Pepcid) 20 mg GT BID [facility] Last Admin: 04/26/17 16:51 Dose: 20 mg Furosemide (Lasix) 20 mg IVP DAILY [facility] Last Admin: 04/26/17 08:27 Dose: 20 mg Heparin Sodium (Porcine) (Heparin) 5,000 units SC Q12 [facility] PRN Reason: Protocol Last Admin: 04/26/17 08:25 Dose: 5,000 units Home Med (Dutasteride [Avodart]) 0.5 mg PO DAILY [facility] Last Admin: 04/26/17 08:25 Dose: 0.5 mg Piperacillin Sod/Tazobactam (Sod 2.25 gm/ Sodium Chloride) 100 mls @ 100 mls/ hr IVPB Q8 [facility] Last Admin: 04/26/17 16:49 Dose: 100 mls/hr Dextrose (Dextrose 5% In Water 1000 Ml) 1,000 mls @ 100 mls/hr IV .Q10H [facility] Stop: 04/28/17 11:00 Last Admin: 04/26/17 10:00 Dose: 100 mls/hr Lamotrigine (Lamictal) 25 mg PO BID [facility] Last Admin: 04/26/17 16:50 Dose: 25 mg Metoprolol Tartrate (Lopressor) 100 mg PO Q12 [facility] Last Admin: 04/26/17 08:28 Dose: 100 mg Ondansetron HCl (Zofran Inj) 4 mg IVP Q6 PRN PRN Reason: Nausea/Vomiting Warfarin Sodium (Coumadin) 5 mg PO QD5 YUKI PRN Reason: Protocol Stop: 04/26/17 17:01 Last Admin: 04/26/17 16:49 Dose: 5 mg - Labs Labs: 04/26/17 04:45 04/26/17 04:45 PT 16.5 Seconds (9.8-13.1) H 04/26/17 04:45 INR 1.5 (0.9-1.2) H 04/26/17 04:45 APTT 26.3 Seconds (25.6-37.1) D 04/25/17 04:30 - Constitutional Appears: Chronically Ill - Head Exam Head Exam: NORMAL INSPECTION - Eye Exam Eye Exam: PERRL - ENT Exam ENT Exam: Normal Exam - Neck Exam Neck Exam: Normal Inspection - Respiratory Exam Respiratory Exam: Decreased Breath Sounds (at bases), Rhonchi (scattered) - Cardiovascular Exam Cardiovascular Exam: Irregular Rhythm - GI/Abdominal Exam GI & Abdominal Exam: Soft, Normal Bowel Sounds - Extremities Exam Extremities Exam: Pedal Edema (U/E, L/E) - Neurological Exam Neurological Exam: Awake Additional comments: Follows simple commands, no focal motor , generalized weakness. - Psychiatric Exam Additional comments: Calm - Skin Skin Exam: Warm Assessment and Plan (1) Acute respiratory failure Status: Acute (2) Acute on chronic diastolic (congestive) heart failure Status: Acute (3) Pleural effusion Status: Acute (4) S/P thoracentesis Status: Acute (5) CANDELARIA (acute kidney injury) Status: Acute (6) HTN (hypertension) Status: Chronic (7) A-fib Status: Chronic (8) Sleep apnea Status: Chronic (9) Lung nodule Status: Acute (10) Hypernatremia Status: Resolved - Assessment and Plan (Free Text) Plan: At 7:00 am there was a pause 3.5 seconds in Telemetry , Metropolol , Lasix on hold , f/u with Cardiology, Hypernatremia , on IV D5W , continue DuoNeb , Mucomyst , Lamictal , PT while Patient off BIPAP ICU Time: 40 min.
[2017-04-27 04:34] LABS: ALB/GLOB RATIO 0.8 (1.0-2.1); POTASSIUM 3.5 MMOL/L (3.6-5.0)
[2017-04-27 04:40] LABS: MEAN CELL VOLUME 95.6 fl (80.0-94.0); MEAN CORPUSCULAR HEMOGLOBIN 30.6 pg (27.0-31.0); RED CELL DISTRIBUTION WIDTH 15.3 % (11.5-14.5); WHITE BLOOD COUNT 7.7 K/uL (4.8-10.8)
[2017-04-27 04:41] LABS: ABG ALLEN TEST YES; ABG MECHANICAL RATE 18; ARTERIAL BLOOD GAS HCO3 33.9 mmol/L (21-28); ARTERIAL BLOOD GAS MODE BiPAP; ARTERIAL BLOOD GAS O2 CAPACITY 15.4 mL/dL (16-24); ARTERIAL BLOOD GAS O2 CONTENT 15.2 ML/dL (15-23); ARTERIAL BLOOD GAS PH 7.46 (7.35-7.45); ARTERIAL BLOOD GAS PO2 127 mm/Hg (80-100); ARTERIAL BLOOD HGB O2 SAT 96.6 % (95.0-98.0); CARBOXYHEMOGLOBIN 0.8 % (0.5-1.5); HHB 1.4 % (0.0-5.0); METHEMOGLOBIN 1.1 % (0.0-3.0)
[2017-04-27 04:43] LABS: TOTAL PROTEIN 5.5 G/DL (6.3-8.2)
[2017-04-27] MEDS: Acetylcysteine 10% 4 ML IH SCH ×3 (07:21→19:31)
[2017-04-27] MEDS: Albuterol-Ipratrop 3 mg / 0.5 (3 ml) UD INH SCH ×4 (07:21→19:31)
[2017-04-27] MEDS: Patient's Own Med (Dutasteride [Avodart] 0.5 MG) PO SCH (08:32)
--- NOTE | 2017-04-27 11:33 | PN ---
DATE: 04/27/2017 LOCATION: The patient is in ICU, bed 434. TIME SPENT: 35 minutes. The patient is seen and examined at the bedside. Past medical, surgical and social history reviewed. Overnight on BiPAP, 26/08, 70%. This morning, off BiPAP on 3 liters nasal cannula. Remains alert, awake, opens eyes on calling his name, but appears to be sleeping most of the time. No distress not ed. The patient's vital signs overnight, telemetry, atrial fibrillation with a rate about 70-100. N ormotensive, afebrile. PHYSICAL EXAMINATION: VITAL SIGNS: This morning, temperature 97.7, heart rate 99, respiratory rate 20 thoracoabdominal, bl ood pressure 124/56, saturating 100% on nasal cannula 3 liters. Intake 2640, output 1250, positive b alance of 1390. Weight 172 pounds. HEENT: Pupils are reactive. Conjunctivae are pink. Sclerae are white. NECK: Supple. Hunched back. CHEST: Bilateral breath sounds, diminished in intensity, scattered rhonchi. Fine crepitations at th e bases. HEART: Rhythm irregular. No audible murmur. ABDOMEN: Bowel sounds present, soft. EXTREMITIES: Upper extremities, positive for edema. Lower extremities, positive for edema. Normal pulses. No calf tenderness. SKIN: Unstageable sacral ulcer. NEUROLOGIC: Opens eyes to verbal stimuli. CURRENT MEDICATIONS: Include DuoNeb 3 mL via nebulizer q. 6, Mucomyst 2 mL 3 times daily, Pepcid 20 mg GT twice daily, Lasix 20 mg IV daily, heparin 5000 units subQ q. 12, Lamictal 25 mg p.o. b.i.d., L opressor 100 mg q. 12 hours, hold for heart rate less than 60, Zofran 4 mg IV q. 6 hours p.r.n. LABORATORY DATA: WBC 7.7, hemoglobin 10.6, hematocrit 33, platelet count at 250. PT , INR 1.5. ABG: pH 7.46, pCO2 52, pO2 127, saturating 98.6% on BiPAP 70%, 16/10. SMA-7: Sodium 149, potassi um 3.5, chloride 107, CO2 of 36. Blood urea nitrogen 46, creatinine 1.4, random glucose 132, calcium 8, total bilirubin 1. AST 24, ALT 27, alkaline phosphatase 79, total protein 5.5, albumin 2.4. Pleur al fluid: WBC 190, RBC 1160, total cell count 100, neutrophils 63%, lymphocytes 13, monocytes 24. B lood culture, no growth reported. IMPRESSION AND PLAN: Acute on chronic respiratory failure, bilateral pleural effusions and adjacent atelectasis, pneumonia/tracheobronchitis, prerenal azotemia was somewhat secondary to reduced r enal perfusion, hypernatremia, improving on intravenous hydration, atrial fibrillation with bradycard ia, resolved. Ventricular rate around 100. Off Digoxin, on metoprolol. Continue p.o. feeding with caution for aspiration. Meals being administered by and supervised by RN. Closely monitor for aspiration. 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 Continue deep venous thrombosis/gastrointestinal prophylaxis. Clive Buckner MD cc: [id number] TT: 04/27/2017 11:31:54 Confirmation # [id number] Dictation # [id number] emily
--- NOTE | 2017-04-27 14:50 | CP.PCM.PN ---
Subjective - Date & Time of Evaluation Date of Evaluation: 04/27/17 Time of Evaluation: 13:10 - Subjective Subjective: F/U Respiratory Failure. Awake , on NC , able to talk , smiling , no AD , Patient's at bedside Objective - Vital Signs/Intake and Output Vital Signs (last 24 hours): Temp Pulse Resp BP Pulse Ox 99 F 98 H 23 160/95 H 99 04/27/17 12:00 04/27/17 14:00 04/27/17 14:00 04/27/17 14:00 04/27/17 14:00 Intake and Output: 04/27/17 04/27/17 06:59 18:59 Intake Total 1100 800 Output Total 400 Balance 700 800 - Medications Medications: Current Medications Acetylcysteine (Mucomyst 10% 4ml) 2 ml IH RTID [facility] Last Admin: 04/27/17 07:21 Dose: 2 ml Albuterol/Ipratropium (Duoneb 3 Mg/0.5 Mg (3 Ml) Ud) 3 ml INH RQID [facility] Last Admin: 04/27/17 11:27 Dose: 3 ml Famotidine (Pepcid) 20 mg GT BID [facility] Last Admin: 04/27/17 08:32 Dose: 20 mg Furosemide (Lasix) 20 mg IVP DAILY [facility] Last Admin: 04/26/17 08:27 Dose: 20 mg Heparin Sodium (Porcine) (Heparin) 5,000 units SC Q12 [facility] PRN Reason: Protocol Last Admin: 04/27/17 08:33 Dose: 5,000 units Home Med (Dutasteride [Avodart]) 0.5 mg PO DAILY [facility] Last Admin: 04/27/17 08:32 Dose: 0.5 mg Dextrose (Dextrose 5% In Water 1000 Ml) 1,000 mls @ 100 mls/hr IV .Q10H [facility] Stop: 04/28/17 11:00 Last Admin: 04/27/17 11:30 Dose: 100 mls/hr Lamotrigine (Lamictal) 25 mg PO BID [facility] Last Admin: 04/27/17 08:34 Dose: 25 mg Metoprolol Tartrate (Lopressor) 100 mg PO Q12 [facility] Last Admin: 04/26/17 08:28 Dose: 100 mg Ondansetron HCl (Zofran Inj) 4 mg IVP Q6 PRN PRN Reason: Nausea/Vomiting - Labs Labs: 04/27/17 03:50 04/27/17 03:50 PT 17.3 Seconds (9.8-13.1) H 04/27/17 03:50 INR 1.5 (0.9-1.2) H 04/27/17 03:50 APTT 26.3 Seconds (25.6-37.1) D 04/25/17 04:30 - Constitutional Appears: No Acute Distress, Chronically Ill - Head Exam Head Exam: NORMAL INSPECTION - Eye Exam Eye Exam: PERRL - ENT Exam ENT Exam: Normal Oropharynx - Neck Exam Neck Exam: Normal Inspection - Respiratory Exam Respiratory Exam: Decreased Breath Sounds (at bases) - Cardiovascular Exam Cardiovascular Exam: Irregular Rhythm - GI/Abdominal Exam GI & Abdominal Exam: Soft, Normal Bowel Sounds - Extremities Exam Extremities Exam: Pedal Edema (decreased edema U/E, L/E) - Neurological Exam Neurological Exam: Awake Additional comments: Follows simple commands, limited movements U/E, L/E, generalized weakness - Psychiatric Exam Additional comments: Calm - Skin Skin Exam: Warm Assessment and Plan (1) Acute respiratory failure Status: Acute (2) Acute on chronic diastolic (congestive) heart failure Status: Acute (3) Pleural effusion Status: Acute (4) S/P thoracentesis Status: Acute (5) CANDELARIA (acute kidney injury) Status: Acute (6) HTN (hypertension) Status: Chronic (7) A-fib Status: Chronic (8) Sleep apnea Status: Chronic (9) Lung nodule Status: Acute (10) Hypernatremia Status: Resolved - Assessment and Plan (Free Text) Plan: Respiratorry Failure, CHF , Pleural effusions improved after Thoracentesis , A Fib rate controlled , Patient is off Lopressor , continue Lasix, DuoNeb , Mucomyst and rest of treatment , increase PT ICU Time: 38 min.
[2017-04-27] MEDS ORDERED: Sodium Chloride 3% for Inhalation 4 ML VIAL.NEB IH PRN (16:47)
[2017-04-28 06:40] LABS: ALB/GLOB RATIO 0.8 (1.0-2.1); ALKALINE PHOSPHATASE 81 U/L (38-126); ALT/SGPT 30 U/L (21-72); AST/SGOT 30 U/L (17-59); BILIRUBIN,TOTAL 0.9 mg/dl (0.2-1.3); BLOOD UREA NITROGEN 38 mg/dl (9-20); CALCIUM 7.8 mg/dL (8.4-10.2); CARBON DIOXIDE 34 mmol/L (22-30); CHLORIDE 103 mmol/L (98-107); GFR AFRICAN-AMERICAN > 60; GLUCOSE,RANDOM 120 mg/dL (75-110); POTASSIUM 3.7 MMOL/L (3.6-5.0); SODIUM 144 mmol/l (132-148); TOTAL PROTEIN 5.7 G/DL (6.3-8.2)
[2017-04-28] MEDS: Acetylcysteine 10% 4 ML IH SCH ×3 (07:49→19:58)
[2017-04-28] MEDS: Albuterol-Ipratrop 3 mg / 0.5 (3 ml) UD INH SCH ×4 (07:49→19:58)
[2017-04-28 08:31] LABS: HEMATOCRIT 37.9 % (35.0-51.0); MEAN CELL VOLUME 95.9 fl (80.0-94.0); MEAN CORPUSCULAR HEMOGLOBIN 30.3 pg (27.0-31.0); MEAN CORPUSCULAR HGB CONC 31.6 g/dL (33.0-37.0); RED CELL DISTRIBUTION WIDTH 15.4 % (11.5-14.5); WHITE BLOOD COUNT 7.7 K/uL (4.8-10.8)
[2017-04-28] MEDS: Patient's Own Med (Dutasteride [Avodart] 0.5 MG) PO SCH (08:39)
[2017-04-28] MEDS ORDERED: Chlorhexidine Gluconate 1 APPL/PKT TP ONE (10:28)
--- NOTE | 2017-04-28 12:07 | PN ---
DATE: 04/28/2017 LOCATION: The patient in ICU, bed 434. TIME SPENT: 35 minutes. The patient is seen and evaluated at the bedside. Events since admission were reviewed. PAST MEDICAL, SURGICAL AND SOCIAL HISTORY: Reviewed. Overnight on BiPAP 16/10, 70%. This morning off BiPAP, on 3 liters nasal cannula, saturating over 94%. Remains alert and awake, opens eyes on calling his name but appears to be sleeping most of the time. No distress noted. Telemetry overnight, atrial fibrillation with rate in the low 80s. Normotensive , afebrile. PHYSICAL EXAMINATION: VITAL SIGNS: This morning, temperature 97.7, heart rate 92, blood pressure 166/ 90, respiratory rate 23, oxygen saturation 96%. Intake 2300, output 950. Positive balance, 1350. Weight 178 pounds. HEENT: Pupils are reactive. Conjunctivae are pink. Sclerae white. NECK: Supple, hunched back. CHEST: Bilateral breath sounds diminished in intensity. Fine crepitations at the bases. HEART: Rhythm irregular. No audible murmur. ABDOMEN: Bowel sounds present, soft. EXTREMITIES: Significant for edema, both upper and lower extremities. Dorsalis pedis palpable, reduced in intensity. No calf tenderness or palpable cord. SKIN: Unstageable sacral ulcer. NEUROLOGIC: Opens eyes to verbal stimuli. Slow interaction. Able to move all 4 extremities. CURRENT MEDICATIONS: DuoNeb 3 mL via nebulizer q. 6, Mucomyst 10% 2 mL via nebulizer 3 times daily, Pepcid 20 mg daily, furosemide 20 mg daily, heparin 5000 units subQ q. 12 hours, Lamictal 25 mg p.o. b.i.d., Lopressor 100 mg p.o. q. 12, Zofran 4 mg IV q. 6 p.r.n. LABORATORY DATA: ABG: pH 7.46, pCO2 of 52, pO2 of 127, bicarb 33.9 on BiPAP, _ rate 16, EPAP of 10. Combined metabolic alkalosis with respiratory acidosis. SMA-7: Sodium 142, potassium 3.7, chloride 103, CO2 of 34, anion gap 11, BUN 18 , creatinine 1.2, calcium 7.8, albumin 2.5, total protein 5.7. TSH pending. Urinalysis: Digoxin level 1.6, levetiracetam less than 1. MICROBIOLOGY: Blood culture no growth. Nasal smear MRSA negative. Sputum culture normal linda. CHEST X-RAY: Right-sided PICC line in SVC slightly improved _ congestive changes; persistent bilateral lower lobe atelectasis, right greater than left; bilateral effusion, right greater than left. IMPRESSION: 1. Remains lethargic. Metabolic encephalopathy superimposed on possible Alzheimer dementia. 2. Pulmonary: Hypercapnic, hypoxic respiratory failure, possible chronic obstructive pulmonary disease/obesity hypoventilation. Bilateral pleural effusion status post thoracentesis. 3. Cardiac: Diastolic dysfunction, normal left ventricular systolic function, paroxysmal atrial fibrillation, rate controlled on metoprolol, off digoxin. 4. Infectious disease: Suspected aspiration pneumonia, improved, off antibiotic. Pressure ulcer on wound care. 5. Endocrine: Fasting blood sugar 120. 6. Hematology: Anemia of chronic disease. 7. Gastrointestinal: Tolerating feeding without signs and symptoms of aspiration. 8. Renal: Metabolic alkalosis with persistently elevated CO2, on acetazolamide 250 mg IV q. 12 to stimulate respiratory center Continue BiPAP at night. SCD for DVT prophylaxis. Clive Buckner MD cc: [id number] TT: 04/28/2017 12:07:06 Confirmation # [id number] Dictation # [id number] mn ROSSY
--- NOTE | 2017-04-28 21:17 | CP.PCM.PN ---
Subjective - Date & Time of Evaluation Date of Evaluation: 04/28/17 Time of Evaluation: 12:40 - Subjective Subjective: F/U Respiratory Failure Smiling , talking with his and sons at bedside , on O2 NC, BIPAP overnight Objective - Vital Signs/Intake and Output Vital Signs (last 24 hours): Temp Pulse Resp BP Pulse Ox 97.6 F 106 H 22 135/96 H 100 04/28/17 16:00 04/28/17 18:00 04/28/17 18:00 04/28/17 18:00 04/28/17 18:00 Intake and Output: 04/28/17 04/29/17 18:59 06:59 Intake Total 1000 Output Total 1400 Balance -400 - Medications Medications: Current Medications Acetazolamide (Diamox 500 Mg Inj) 250 mg IV Q12 [facility] Last Admin: 04/28/17 20:25 Dose: 250 mg Acetylcysteine (Mucomyst 10% 4ml) 2 ml IH RTID [facility] Last Admin: 04/28/17 19:58 Dose: 2 ml Albuterol/Ipratropium (Duoneb 3 Mg/0.5 Mg (3 Ml) Ud) 3 ml INH RQID [facility] Last Admin: 04/28/17 19:58 Dose: 3 ml Famotidine (Pepcid) 20 mg GT BID [facility] Last Admin: 04/28/17 17:03 Dose: 20 mg Furosemide (Lasix) 20 mg IVP DAILY [facility] Last Admin: 04/26/17 08:27 Dose: 20 mg Heparin Sodium (Porcine) (Heparin) 5,000 units SC Q12 [facility] PRN Reason: Protocol Last Admin: 04/28/17 20:26 Dose: 5,000 units Home Med (Dutasteride [Avodart]) 0.5 mg PO DAILY [facility] Last Admin: 04/28/17 08:39 Dose: 0.5 mg Lamotrigine (Lamictal) 25 mg PO BID [facility] Last Admin: 04/28/17 17:03 Dose: 25 mg Metoprolol Tartrate (Lopressor) 100 mg PO Q12 [facility] Last Admin: 04/26/17 08:28 Dose: 100 mg Ondansetron HCl (Zofran Inj) 4 mg IVP Q6 PRN PRN Reason: Nausea/Vomiting - Labs Labs: 04/28/17 07:15 04/28/17 06:15 PT 15.5 Seconds (9.8-13.1) H 04/28/17 06:15 INR 1.4 (0.9-1.2) H 04/28/17 06:15 APTT 26.3 Seconds (25.6-37.1) D 04/25/17 04:30 - Constitutional Appears: No Acute Distress, Chronically Ill - Head Exam Head Exam: NORMAL INSPECTION - Eye Exam Eye Exam: PERRL - ENT Exam ENT Exam: Normal Oropharynx - Neck Exam Neck Exam: Normal Inspection - Respiratory Exam Respiratory Exam: Decreased Breath Sounds (at bases) - Cardiovascular Exam Cardiovascular Exam: Irregular Rhythm - GI/Abdominal Exam GI & Abdominal Exam: Soft, Normal Bowel Sounds - Extremities Exam Extremities Exam: Pedal Edema (decreased edema U/E, L/E) - Back Exam Additional comments: Sacral ulcer - Neurological Exam Neurological Exam: Awake (able to talk , no focal motor , sensory defifcit , generalized weakness) Additional comments: Able to talk , follows simple commands, no focal motor/ sensory deficit , generalized weakness. 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 ICU Time: 40 min.
--- NOTE | 2017-04-29 07:37 | CP.CCUPN ---
CCU Subjective - Physician Review Events Since Last Encounter (Free Text): 04/29/17 13:45 The Patient was seen and examined at the bedside with the ICU team. Management issues were discussed and formulated. Acute respiratory failure self extubated, remains in ICU to monitor respiratory status closely Large B/L effusion S/p B/L thoracocentesis More awake, and interactive today comfortable, NAD Off BIPAP dependent, Saturating well on nasal cannula Tolerating PO diet CXR done, improved lung aerations AFebrile HR/BP controlled, No labs drawn today, Patient stable for transfer to telemetry Antibiotics renewed with [facility] CCU Objective - Vital Signs / Intake & Output Vital Signs (Last 4 hours): Vital Signs Pulse Resp BP Pulse Ox 04/29/17 06:00 90 21 137/98 H 100 04/29/17 05:00 106 H 04/29/17 04:00 99 H 20 154/93 H 100 Intake and Output (Last 8hrs): Intake & Output 04/28/17 04/29/17 04/29/17 22:59 06:59 14:59 Intake Total 230 150 Output Total 1400 950 Balance -1170 -800 Intake: IV 200 0 Oral 30 150 Output: Urine 1400 950 Urethral (Wang) 1400 950 - Physical Exam Head: Positive for: Atraumatic, Normocephalic Pupils: Positive for: PERRL Conjunctiva: Positive for: Normal Mouth: Positive for: Moist Mucous Membranes Nose (External): Positive for: Atraumatic Nose (Internal): Positive for: Normal Inspection Neck: Positive for: Normal Range of Motion Respiratory/Chest: Positive for: Decreased Breath Sounds, Rhonchi Cardiovascular: Positive for: Irregular Rhythm Abdomen: Positive for: Normal Bowel Sounds Upper Extremity: Positive for: Edema, Neurovascularly Intact Lower Extremity: Positive for: Edema, NORMAL PULSES. Negative for: CALF TENDERNESS Neurological: Positive for: Other (on ventilator, opens eyes to verbal stimuli) Skin: Positive for: Other (Unstageable sacral ulcer) - Medications Active Medications: Active Medications Generic Name Dose Route Start Last Admin Trade Name Freq PRN Reason Stop Dose Admin Acetazolamide 250 mg 04/28/17 10:00 04/28/17 20:25 Diamox 500 Mg Inj IV 250 mg Q12 [facility] Administration Acetylcysteine 2 ml 04/16/17 20:00 04/28/17 19:58 Mucomyst 10% 4ml IH 2 ml RTID [facility] Administration Albuterol/Ipratropium 3 ml 04/22/17 16:00 04/28/17 19:58 Duoneb 3 Mg/0.5 Mg (3 Ml) Ud INH 3 ml RQID [facility] Administration Famotidine 20 mg 04/18/17 17:00 04/28/17 17:03 Pepcid GT 20 mg BID [facility] Administration Furosemide 20 mg 04/18/17 09:00 04/26/17 08:27 Lasix IVP 20 mg DAILY [facility] Administration Heparin Sodium (Porcine) 5,000 units 04/25/17 09:00 04/28/17 20:26 Heparin SC 5,000 units Q12 [facility] Administration Protocol Home Med 0.5 mg 04/19/17 13:09 04/28/17 08:39 Dutasteride [Avodart] PO 0.5 mg DAILY [facility] Administration Lamotrigine 25 mg 04/15/17 17:00 04/28/17 17:03 Lamictal PO 25 mg BID [facility] Administration Metoprolol Tartrate 100 mg 04/25/17 09:00 04/26/17 08:28 Lopressor PO 100 mg Q12 [facility] Administration Ondansetron HCl 4 mg 04/18/17 15:49 Zofran Inj IVP Q6 PRN Nausea/Vomiting - Patient Studies Lab Studies: Microbiology Studies 04/27/17 17:00 Gram Stain - Final Sputum Induced Lab Studies 04/29/17 04/28/17 04/28/17 Range/Units 05:00 21:51 07:15 WBC 7.7 (4.8-10.8) K/uL RBC 3.95 L (4.40-5.90) Mil/uL Hgb 12.0 (12.0-18.0) g/dL Hct 37.9 (35.0-51.0) % MCV 95.9 H (80.0-94.0) fl MCH 30.3 (27.0-31.0) pg MCHC 31.6 L (33.0-37.0) g/dL RDW 15.4 H (11.5-14.5) % Plt Count 254 (130-400) K/uL PT 14.8 H (9.8-13.1) Seconds INR 1.3 H (0.9-1.2) POC Glucose (mg/dL) 130 H (65-110) mg/dL Laboratory Results - last 24 hr 04/28/17 04/28/17 04/29/17 07:15 21:51 05:00 WBC 7.7 RBC 3.95 L Hgb 12.0 Hct 37.9 MCV 95.9 H MCH 30.3 MCHC 31.6 L RDW 15.4 H Plt Count 254 PT 14.8 H INR 1.3 H POC Glucose (mg/dL) 130 H Fingerstick Blood Sugar Results: 202 Review of Systems - Constitutional Constitutional: Weakness. absent: Fever, Chills, Sweats - Cardiovascular Cardiovascular: absent: Chest Pain, Chest Pain at Rest, Chest Pain with Activity , Diaphoresis - Respiratory Respiratory: Cough, Dyspnea. absent: Hemoptysis, Wheezing Critical Care Progress Note - Extremities/Vascular Does the Patient have a Central Venous Catheter?: No Does the Patient need a Central Venous Catheter?: No Does the Patient have a Wang Catheter?: No Does the Patient need a Wang Catheter?: No - Nutrition Nutrition: Nutrition Category Date Time Status Dysphagia/Modified Consistency Diet [DIET] Diets 04/24/17 Dinner Active Assessment/Plan (1) CANDELARIA (acute kidney injury) Current Visit: Yes Status: Acute Priority: High (2) Acute decompensated heart failure Current Visit: Yes Status: Acute (3) Acute on chronic diastolic (congestive) heart failure Current Visit: Yes Status: Acute Priority: High (4) Acute respiratory failure Current Visit: Yes Status: Acute Priority: High (5) Aspiration pneumonia Current Visit: Yes Status: Acute (6) Hypernatremia Current Visit: Yes Status: Resolved (7) Pleural effusion Current Visit: Yes Status: Acute - Assessment and Plan (Free Text) Assessment: - Continue current medications, reviewed - Wean off Fios - IV dieresis, Lasix 20 mg IVP DAILY - Strict I&O - HR control with Metoprolol - IV Antibiotics with Piperacillin Sod/Tazobactam - Pulmonary toilets - Albuterol/Ipratropium INH RQID - Follow CXR, ABG, labs in AM - AGREESSIVE PULMONARY TIOLET, CHEST PT, SUCTIONING - Wound care for Unstageable sacral ulcer - DVT / GI prophylaxis: Pepcid, Lovenox
--- NOTE | 2017-04-29 08:46 | CP.PCM.PN ---
Subjective - Date & Time of Evaluation Date of Evaluation: 04/29/17 Time of Evaluation: 08:30 - Subjective Subjective: Quite alert , being fed by the Color good ) no cynotic ting to the fingers) A Fib at 70- 90 BPM BP 130/74 mm Hg Chest clear , no rales INR 1.3 ( warfarin ordered) On SC Heparin Can be moved out of CCU to continue Rx and should start on PT Objective - Vital Signs/Intake and Output Vital Signs (last 24 hours): Temp Pulse Resp BP Pulse Ox 98.2 F 94 H 23 162/87 H 100 04/29/17 07:51 04/29/17 07:51 04/29/17 07:51 04/29/17 07:51 04/29/17 07:51 Intake and Output: 04/29/17 04/29/17 06:59 18:59 Intake Total 180 Output Total 950 Balance -770 - Medications Medications: Current Medications Acetazolamide (Diamox 500 Mg Inj) [address] [facility] Last Admin: 04/28/17 20:25 Dose: 250 mg Acetylcysteine (Mucomyst 10% 4ml) [address] [facility] Last Admin: 04/28/17 19:58 Dose: 2 ml Albuterol/Ipratropium (Duoneb 3 Mg/0.5 Mg (3 Ml) Ud) [address] [facility] Last Admin: 04/28/17 19:58 Dose: 3 ml Famotidine (Pepcid) [address] [facility] Last Admin: 04/28/17 17:03 Dose: 20 mg Furosemide (Lasix) [address] [facility] Last Admin: 04/26/17 08:27 Dose: 20 mg Heparin Sodium (Porcine) (Heparin) 5,[address] [facility] PRN Reason: Protocol Last Admin: 04/28/17 20:26 Dose: 5,000 units Home Med (Dutasteride [Avodart]) 0.[address] [facility] Last Admin: 04/28/17 08:39 Dose: 0.5 mg Lamotrigine (Lamictal) [address] [facility] Last Admin: 04/28/17 17:03 Dose: 25 mg Metoprolol Tartrate (Lopressor) [address] [facility] Last Admin: 04/26/17 08:28 Dose: 100 mg Ondansetron HCl (Zofran Inj) 4 mg IVP Q6 PRN PRN Reason: Nausea/Vomiting Warfarin Sodium (Coumadin) 5 mg PO QD5 [facility] PRN Reason: Protocol Stop: 04/29/17 17:01 - Labs Labs: 04/28/17 07:15 04/28/17 06:15 PT 14.8 Seconds (9.8-13.1) H 04/29/17 05:00 INR 1.3 (0.9-1.2) H 04/29/17 05:00 APTT 26.3 Seconds (25.6-37.1) D 04/25/17 04:30
[2017-04-29] MEDS: Acetylcysteine 10% 4 ML IH SCH ×3 (09:02→19:05)
[2017-04-29] MEDS: Albuterol-Ipratrop 3 mg / 0.5 (3 ml) UD INH SCH ×4 (09:03→19:05)
[2017-04-29] MEDS: Patient's Own Med (Dutasteride [Avodart] 0.5 MG) PO SCH (09:07)
[2017-04-29] MEDS: Piperacillin/Tazobact 3.375 GM in Sodium Chloride 0.9% 100 ML IVPB SCH ×2 (16:14→21:21)
--- NOTE | 2017-04-29 16:55 | CP.PCM.PN ---
Subjective - Date & Time of Evaluation Date of Evaluation: 04/29/17 Time of Evaluation: 11:00 - Subjective Subjective: Smiling , able to talk , eating well with help at bedside , on O2 N/C daytime Objective - Vital Signs/Intake and Output Vital Signs (last 24 hours): Temp Pulse Resp BP Pulse Ox 98.1 F 95 H 24 179/89 H 100 04/29/17 16:10 04/29/17 16:10 04/29/17 16:10 04/29/17 16:10 04/29/17 16:10 Intake and Output: 04/29/17 04/29/17 06:59 18:59 Intake Total 180 350 Output Total 950 800 Balance -770 -450 - Medications Medications: Current Medications Acetazolamide (Diamox 500 Mg Inj) 250 mg IV Q12 [facility] Last Admin: 04/29/17 09:06 Dose: 250 mg Acetylcysteine (Mucomyst 10% 4ml) 2 ml IH RTID [facility] Last Admin: 04/29/17 09:02 Dose: 2 ml Albuterol/Ipratropium (Duoneb 3 Mg/0.5 Mg (3 Ml) Ud) 3 ml INH RQID [facility] Last Admin: 04/29/17 15:41 Dose: 3 ml Famotidine (Pepcid) 20 mg GT BID [facility] Last Admin: 04/29/17 16:14 Dose: 20 mg Furosemide (Lasix) 20 mg IVP DAILY [facility] Last Admin: 04/26/17 08:27 Dose: 20 mg Heparin Sodium (Porcine) (Heparin) 5,000 units SC Q12 [facility] PRN Reason: Protocol Last Admin: 04/29/17 09:08 Dose: 5,000 units Home Med (Dutasteride [Avodart]) 0.5 mg PO DAILY [facility] Last Admin: 04/29/17 09:07 Dose: 0.5 mg Piperacillin Sod/Tazobactam (Sod 3.375 gm/ Sodium Chloride) 100 mls @ 100 mls/ hr IVPB Q6 [facility] Last Admin: 04/29/17 16:14 Dose: 100 mls/hr Lamotrigine (Lamictal) 25 mg PO BID [facility] Last Admin: 04/29/17 16:14 Dose: 25 mg Metoprolol Tartrate (Lopressor) 100 mg PO Q12 [facility] Last Admin: 04/26/17 08:28 Dose: 100 mg Ondansetron HCl (Zofran Inj) 4 mg IVP Q6 PRN PRN Reason: Nausea/Vomiting Warfarin Sodium (Coumadin) 5 mg PO QD5 [facility] PRN Reason: Protocol Stop: 04/29/17 17:01 Last Admin: 04/29/17 16:43 Dose: 5 mg - Labs Labs: 04/28/17 07:15 04/28/17 06:15 PT 14.8 Seconds (9.8-13.1) H 04/29/17 05:00 INR 1.3 (0.9-1.2) H 04/29/17 05:00 APTT 26.3 Seconds (25.6-37.1) D 04/25/17 04:30 - Constitutional Appears: Chronically Ill - Head Exam Head Exam: NORMAL INSPECTION - Eye Exam Eye Exam: PERRL - ENT Exam ENT Exam: Normal Exam - Neck Exam Neck Exam: Normal Inspection - Respiratory Exam Respiratory Exam: Decreased Breath Sounds (at bases) - Cardiovascular Exam Cardiovascular Exam: Irregular Rhythm - GI/Abdominal Exam GI & Abdominal Exam: Soft, Normal Bowel Sounds - Extremities Exam Extremities Exam: Pedal Edema (decreased edema U/E L/E) - Back Exam Additional comments: Sacral ulcer - Neurological Exam Neurological Exam: Awake Additional comments: able to talk , fofllows commands , no focal motor/sensory deficit , generalized weakness Assessment and Plan (1) Acute respiratory failure Status: Acute (2) Acute on chronic diastolic (congestive) heart failure Status: Chronic (3) Pleural effusion Status: Acute (4) S/P thoracentesis Status: Acute (5) CANDELARIA (acute kidney injury) Status: Acute (6) HTN (hypertension) Status: Chronic (7) A-fib Status: Chronic (8) Sleep apnea Status: Chronic (9) Lung nodule Status: Acute (10) Hypernatremia Status: Deleted - Assessment and Plan (Free Text) Plan: Respiratory Failure , CHF improved , A Fib rate controlled , continue Duo Neb , Mucomyst ,Pulmonary toilette with Sport bed , Diamox , Metropolol , and rest of treatment , awaiting transfer to Telemetry. ICU Time: 40 min.
[2017-04-30] MEDS: Piperacillin/Tazobact 3.375 GM in Sodium Chloride 0.9% 100 ML IVPB SCH ×4 (04:11→21:19)
[2017-04-30] MEDS: Albuterol-Ipratrop 3 mg / 0.5 (3 ml) UD INH SCH ×4 (07:55→19:40)
[2017-04-30] MEDS: Acetylcysteine 10% 4 ML IH SCH ×3 (07:55→19:39)
[2017-04-30] MEDS: Patient's Own Med (Dutasteride [Avodart] 0.5 MG) PO SCH (09:06)
--- NOTE | 2017-04-30 11:02 | PN ---
DATE: 04/30/2017 LOCATION: The patient is in ICU, bed 434. TIME SPENT: 25 minutes. The patient is seen and evaluated at the bedside. Events overnight reviewed. Telemetry atrial fibri llation, rate controlled, normotensive, on BiPAP at night. This morning, alert, awake, follows comma nds, appropriate, being fed by his spouse, tolerating it well. No sign or symptoms of aspiration, co ugh or shortness of breath. PHYSICAL EXAMINATION: VITAL SIGNS: Temperature 97.7, heart rate 82, irregular, blood pressure 164/100. Oxygen saturation 100%. Intake 616/1500, negative balance 884. Weight 178 pounds. HEENT: Pupils are reactive. Conjunctivae pink. Sclerae white. NECK: Supple, hunched back. CHEST: Bilateral breath sounds, diminished intensity. Clear to auscultation anteriorly and laterall y. HEART: Rhythm irregular. No audible murmur. ABDOMEN: Bowel sounds present, soft. EXTREMITIES: Significant for edema upper and lower extremities. Peripheral pulses palpable, reduced in intensity. No calf tenderness. No palpable cord. SKIN: Unstageable sacral ulcer. NEUROLOGIC: Opens eyes to verbal stimuli, slow interaction, moving all 4 extremities. CURRENT MEDICATIONS: DuoNeb at 3 mL via nebulizer q. 6, Mucomyst 10% 2 mL via nebulizer 3 times judit y, Pepcid 20 mg daily, furosemide 20 mg daily, heparin 5000 units subQ q. 12 hours, Lamictal 25 mg t wice daily, Lopressor 100 mg q. 12, Zofran 4 mg IV q. 6 p.r.n., Diamox 250 mg twice daily. IMPRESSION: 1. Neuro. 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 2. Pulmonary. Hypercapnic, hypoxic, respiratory failure, chronic obstructive pulmonary disease/obes ity hypoventilation, bilateral pleural effusion, status post thoracentesis on BiPAP at night, DuoNeb 3 mL via nebulizer q. 6 hours, Mucomyst 10% 2 mL every 8 hours, Diamox 250 mg IV q. 12. 3. Cardiac diastolic dysfunction, normal left ventricular systolic function. Paroxysmal atrial fibr illation, rate controlled on metoprolol. Remains off digoxin. 4. Infectious disease. Suspected aspiration pneumonia, improved. Remains off antibiotic. Afebrile . 5. Pressure ulcer. Continue wound care. 6. Endocrine. Fasting blood sugar, keep below 180. 7. Hematology, anemia of chronic disease, stable. 8. Gastrointestinal, tolerating feeding without signs or symptoms of aspiration. 9. Renal. Metabolic alkalosis with persistently elevated CO2, on acetazolamide 250 mg IV q. 10. Co ntinue same. Continue BiPAP at night. Continue heparin 5000 units subQ q. 12 for deep venous thromb osis prophylaxis. Continue wound care as per wound care consult. Clive Buckner MD cc: [id number] TT: 04/30/2017 11:01:22 Confirmation # [id number] Dictation # [id number] emily
--- NOTE | 2017-04-30 16:35 | CP.PCM.PN ---
Subjective - Date & Time of Evaluation Date of Evaluation: 04/30/17 Time of Evaluation: 11:05 - Subjective Subjective: F/U Respiratory Failure. Pt awake, smiling, able to talk, interacting with at bedside, HR stable. Objective - Vital Signs/Intake and Output Vital Signs (last 24 hours): Temp Pulse Resp BP Pulse Ox 97.4 F L 105 H 26 H 126/90 100 04/30/17 12:28 04/30/17 12:28 04/30/17 12:28 04/30/17 12:28 04/30/17 12:28 Intake and Output: 04/30/17 04/30/17 06:59 18:59 Intake Total 216 Output Total 700 Balance -484 - Medications Medications: Current Medications Acetazolamide (Diamox 500 Mg Inj) 250 mg IV Q12 [facility] Last Admin: 04/30/17 09:45 Dose: 250 mg Acetylcysteine (Mucomyst 10% 4ml) 2 ml IH RTID [facility] Last Admin: 04/30/17 11:38 Dose: 2 ml Albuterol/Ipratropium (Duoneb 3 Mg/0.5 Mg (3 Ml) Ud) 3 ml INH RQID [facility] Last Admin: 04/30/17 15:59 Dose: 3 ml Famotidine (Pepcid) 20 mg GT BID [facility] Last Admin: 04/30/17 16:30 Dose: 20 mg Furosemide (Lasix) 20 mg IVP DAILY [facility] Last Admin: 04/26/17 08:27 Dose: 20 mg Heparin Sodium (Porcine) (Heparin) 5,000 units SC Q12 [facility] PRN Reason: Protocol Last Admin: 04/30/17 09:04 Dose: 5,000 units Home Med (Dutasteride [Avodart]) 0.5 mg PO DAILY [facility] Last Admin: 04/30/17 09:06 Dose: 0.5 mg Piperacillin Sod/Tazobactam (Sod 3.375 gm/ Sodium Chloride) 100 mls @ 100 mls/ hr IVPB Q6 [facility] Last Admin: 04/30/17 16:30 Dose: 100 mls/hr Lamotrigine (Lamictal) 25 mg PO BID [facility] Last Admin: 04/30/17 16:30 Dose: 25 mg Metoprolol Tartrate (Lopressor) 100 mg PO Q12 [facility] Last Admin: 04/26/17 08:28 Dose: 100 mg Ondansetron HCl (Zofran Inj) 4 mg IVP Q6 PRN PRN Reason: Nausea/Vomiting Warfarin Sodium (Coumadin) 5 mg PO QD5 [facility] PRN Reason: Protocol Stop: 04/30/17 17:01 Last Admin: 04/30/17 16:29 Dose: 5 mg - Labs Labs: 04/28/17 07:15 04/28/17 06:15 PT 14.2 Seconds (9.8-13.1) H 04/30/17 04:15 INR 1.3 (0.9-1.2) H 04/30/17 04:15 APTT 26.3 Seconds (25.6-37.1) D 04/25/17 04:30 - Constitutional Appears: No Acute Distress, Chronically Ill - Head Exam Head Exam: NORMAL INSPECTION - Eye Exam Eye Exam: PERRL - ENT Exam ENT Exam: Normal Exam - Neck Exam Neck Exam: Normal Inspection - Respiratory Exam Respiratory Exam: Decreased Breath Sounds (at bases) - Cardiovascular Exam Cardiovascular Exam: Irregular Rhythm - GI/Abdominal Exam GI & Abdominal Exam: Soft, Normal Bowel Sounds - Extremities Exam Extremities Exam: Pedal Edema (decreased U/E, L > R, trace edema L/E.) - Back Exam Additional comments: Sacral ulcer - Neurological Exam Neurological Exam: Awake Additional comments: Able to talk, follows commands, no focal motor/sensory deficit, generalized weakness. - Psychiatric Exam Psychiatric exam: Normal Mood - Skin Skin Exam: Warm Assessment and Plan (1) Acute respiratory failure Status: Acute (2) Acute on chronic diastolic (congestive) heart failure Status: Acute (3) Pleural effusion Status: Acute (4) S/P thoracentesis Status: Acute (5) CANDELARIA (acute kidney injury) Status: Resolved (6) HTN (hypertension) Status: Chronic (7) A-fib Status: Chronic (8) Sleep apnea Status: Chronic (9) Lung nodule Status: Acute (10) Hypernatremia Status: Resolved - Assessment and Plan (Free Text) Plan: Continue Zosyn, Lasix and rest of Tx, awaiting to be transferred to telemetry ICU Time: 40 min.
[2017-05-01] MEDS: Piperacillin/Tazobact 3.375 GM in Sodium Chloride 0.9% 100 ML IVPB SCH ×4 (04:00→21:22)
[2017-05-01] MEDS: Albuterol-Ipratrop 3 mg / 0.5 (3 ml) UD INH SCH ×4 (07:22→19:18)
[2017-05-01] MEDS: Acetylcysteine 10% 4 ML IH SCH ×4 (07:23→19:18)
--- NOTE | 2017-05-01 09:10 | CP.PCM.PN ---
Subjective - Date & Time of Evaluation Date of Evaluation: 05/01/17 Time of Evaluation: 08:50 - Subjective Subjective: Continues very slow progress Awake, being fed by A Fib at 80-90 BPM BP 128/70 mm Hg Pulse oximetry 97-99 % on nasal supplement of O2 Chest clear, no rales Anasarca due to hypoalbuminemia continues Renal function stable/ improving INR 1.3 till yesterday in spite of oral Warfarin Today's INR awaited Have proposed to pt's switching pt to NYDIA agents She is ambivalent about it. Objective - Vital Signs/Intake and Output Vital Signs (last 24 hours): Temp Pulse Resp BP Pulse Ox 97.9 F 83 25 H 162/80 H 100 05/01/17 07:50 05/01/17 07:50 05/01/17 07:50 05/01/17 07:50 05/01/17 07:50 Intake and Output: 05/01/17 05/01/17 06:59 18:59 Intake Total 200 Output Total 600 Balance -400 - Medications Medications: Current Medications Acetazolamide (Diamox 500 Mg Inj) 250 mg IV Q12 [facility] Last Admin: 04/30/17 21:22 Dose: 250 mg Acetylcysteine (Mucomyst 10% 4ml) 2 ml IH RTID [facility] Last Admin: 05/01/17 07:23 Dose: 2 ml Albuterol/Ipratropium (Duoneb 3 Mg/0.5 Mg (3 Ml) Ud) 3 ml INH RQID [facility] Last Admin: 05/01/17 07:22 Dose: 3 ml Famotidine (Pepcid) 20 mg GT BID [facility] Last Admin: 04/30/17 16:30 Dose: 20 mg Furosemide (Lasix) 20 mg IVP DAILY [facility] Last Admin: 04/26/17 08:27 Dose: 20 mg Heparin Sodium (Porcine) (Heparin) 5,000 units SC Q12 [facility] PRN Reason: Protocol Last Admin: 04/30/17 20:13 Dose: 5,000 units Home Med (Dutasteride [Avodart]) 0.5 mg PO DAILY [facility] Last Admin: 04/30/17 09:06 Dose: 0.5 mg Piperacillin Sod/Tazobactam (Sod 3.375 gm/ Sodium Chloride) 100 mls @ 100 mls/ hr IVPB Q6 [facility] Last Admin: 05/01/17 04:00 Dose: 100 mls/hr Lamotrigine (Lamictal) 25 mg PO BID [facility] Last Admin: 04/30/17 16:30 Dose: 25 mg Metoprolol Tartrate (Lopressor) 100 mg PO Q12 [facility] Last Admin: 04/26/17 08:28 Dose: 100 mg Ondansetron HCl (Zofran Inj) 4 mg IVP Q6 PRN PRN Reason: Nausea/Vomiting - Labs Labs: 04/28/17 07:15 04/28/17 06:15 PT 14.2 Seconds (9.8-13.1) H 04/30/17 04:15 INR 1.3 (0.9-1.2) H 04/30/17 04:15 APTT 26.3 Seconds (25.6-37.1) D 04/25/17 04:30
--- NOTE | 2017-05-01 09:53 | CP.CCUPN ---
CCU Subjective - Physician Review Subjective (Free Text): Remains on BiPAP sup[port overnight, and now on nasal cannula, SPo2 99% on 3 LPM , more alert and appropriately responsive verbally, no overall distress. CCU Objective - Vital Signs / Intake & Output Vital Signs (Last 4 hours): Vital Signs Temp Pulse Resp BP Pulse Ox 05/01/17 07:50 97.9 F 83 25 H 162/80 H 100 Intake and Output (Last 8hrs): Intake & Output 04/30/17 05/01/17 05/01/17 22:59 06:59 14:59 Intake Total 160 40 Output Total 600 Balance 160 -560 Intake: IV 0 Intake, Piggyback 100 Oral 60 40 Output: Urine 600 Urethral (Wang) 600 - Physical Exam Head: Positive for: Atraumatic, Normocephalic Pupils: Positive for: PERRL Conjunctiva: Positive for: Normal Mouth: Positive for: Moist Mucous Membranes Nose (External): Positive for: Atraumatic Nose (Internal): Positive for: Normal Inspection Neck: Positive for: Normal Range of Motion Respiratory/Chest: Positive for: Decreased Breath Sounds, Rhonchi Cardiovascular: Positive for: Irregular Rhythm Abdomen: Positive for: Normal Bowel Sounds Upper Extremity: Positive for: Edema, Neurovascularly Intact Lower Extremity: Positive for: Edema, NORMAL PULSES. Negative for: CALF TENDERNESS Neurological: Positive for: Other (on ventilator, opens eyes to verbal stimuli) Skin: Positive for: Other (Unstageable sacral ulcer) - Medications Active Medications: Active Medications Generic Name Dose Route Start Last Admin Trade Name Freq PRN Reason Stop Dose Admin Acetazolamide 250 mg 04/28/17 10:00 04/30/17 21:22 Diamox 500 Mg Inj IV 250 mg Q12 YUKI Administration Acetylcysteine 2 ml 04/16/17 20:00 05/01/17 07:23 Mucomyst 10% 4ml IH 2 ml RTID YUKI Administration Albuterol/Ipratropium 3 ml 04/22/17 16:00 05/01/17 07:22 Duoneb 3 Mg/0.5 Mg (3 Ml) Ud INH 3 ml RQID YUKI Administration Famotidine 20 mg 04/18/17 17:00 04/30/17 16:30 Pepcid GT 20 mg BID YUKI Administration Furosemide 20 mg 04/18/17 09:00 04/26/17 08:27 Lasix IVP 20 mg DAILY YUKI Administration Heparin Sodium (Porcine) 5,000 units 04/25/17 09:00 04/30/17 20:13 Heparin SC 5,000 units Q12 YUKI Administration Protocol Home Med 0.5 mg 04/19/17 13:09 04/30/17 09:06 Dutasteride [Avodart] PO 0.5 mg DAILY YUKI Administration Piperacillin Sod/Tazobactam 100 mls @ 100 mls/hr 04/29/17 16:00 05/01/17 04: 00 Sod 3.375 gm/ Sodium Chloride IVPB 100 mls/hr Q6 YUKI Administration Lamotrigine 25 mg 04/15/17 17:00 04/30/17 16:30 Lamictal PO 25 mg BID YUKI Administration Metoprolol Tartrate 100 mg 04/25/17 09:00 04/26/17 08:28 Lopressor PO 100 mg Q12 YUKI Administration Ondansetron HCl 4 mg 04/18/17 15:49 Zofran Inj IVP Q6 PRN Nausea/Vomiting - Patient Studies Fingerstick Blood Sugar Results: 202 Review of Systems - Review of Systems All systems: reviewed and no additional remarkable complaints except - Cardiovascular Cardiovascular: Leg Edema, Pedal Edema. absent: Chest Pain, Diaphoresis, Dyspnea on Exertion, Rapid Heart Rate - Respiratory Respiratory: Dyspnea on Exertion. absent: Cough - Gastrointestinal Gastrointestinal: absent: Abdominal Pain - Neurological Neurological: absent: Dizziness, Focal Weakness, Headaches Critical Care Progress Note - Extremities/Vascular Does the Patient have a Central Venous Catheter?: Yes Insertion Site: RUE PICC Does the Patient need a Central Venous Catheter?: Yes Does the Patient have a Wang Catheter?: Yes Does the Patient need a Wang Catheter?: Yes Catheter Insertion Criteria: Need for accurate measurement of output in critically ill patient - Prophylaxis GI Prophylaxis GI: Pepsid - Prophylaxis DVT Prophylaxis DVT: Heparin SQ - Nutrition Nutrition: Nutrition Category Date Time Status Dysphagia/Modified Consistency Diet [DIET] Diets 04/30/17 Breakfast Active Assessment/Plan - Assessment and Plan (Free Text) Assessment: Acute Hypoxemic Respiratory failure 2 bilat effusions; and with Atelectasis / pneumonia / tracheobronchitis Azotemia and Hypernatremia A Fib with slow VR and pauses Dementia Plan: - See orders - Aware that cardiology has discussed substituting Eliquis for Warfarin, since INRs remain resistant to achieving a therapeutic value. has deferred conversion of Warfarin to Eliquis and wishes to discuss further with patients primary PCP: Dr. Shalom Reza, whom she will contact for further discussion. - ventilatory support on BiPAP during NIGHTTIME. - frequent suctioning and chest physiotherapy as tolerated. - Reprieve off BiPAP Q4H as tolerated on nasal cannula. Could even try HFNC. - Lopressor changed and decreased to q12h, no further severe bradycardia or significant pauses. - Cautious PO feedings, assists with meals , informed of need for caution with PO meals, and to watch for any or excessive coughing, drooling. Speech Therapist has recommended video swallow study, but patients overall status remains tenuous, with questionable tolerance for study.
[2017-05-01] MEDS: Patient's Own Med (Dutasteride [Avodart] 0.5 MG) PO SCH (10:15)
--- NOTE | 2017-05-01 16:14 | CP.PCM.PN ---
Subjective - Date & Time of Evaluation Date of Evaluation: 05/01/17 Time of Evaluation: 10:00 - Subjective Subjective: F/U Respiratory failure. Pt eating with the help of his at bed side, follows commands, according to , he appear more sleepy today. Objective - Vital Signs/Intake and Output Vital Signs (last 24 hours): Temp Pulse Resp BP Pulse Ox 98.0 F 84 25 H 189/98 H 100 05/01/17 15:47 05/01/17 15:47 05/01/17 15:47 05/01/17 15:47 05/01/17 15:47 Intake and Output: 05/01/17 05/01/17 06:59 18:59 Intake Total 200 Output Total 600 Balance -400 - Medications Medications: Current Medications Acetazolamide (Diamox 500 Mg Inj) 250 mg IV Q12 [facility] Last Admin: 05/01/17 10:17 Dose: 250 mg Acetylcysteine (Mucomyst 10% 4ml) 2 ml IH RTID [facility] Last Admin: 05/01/17 14:02 Dose: Not Given Albuterol/Ipratropium (Duoneb 3 Mg/0.5 Mg (3 Ml) Ud) 3 ml INH RQID [facility] Last Admin: 05/01/17 15:40 Dose: 3 ml Famotidine (Pepcid) 20 mg GT BID [facility] Last Admin: 05/01/17 10:16 Dose: 20 mg Heparin Sodium (Porcine) (Heparin) 5,000 units SC Q12 YUKI PRN Reason: Protocol Last Admin: 05/01/17 10:15 Dose: 5,000 units Home Med (Dutasteride [Avodart]) 0.5 mg PO DAILY [facility] Last Admin: 05/01/17 10:15 Dose: 0.5 mg Piperacillin Sod/Tazobactam (Sod 3.375 gm/ Sodium Chloride) 100 mls @ 100 mls/ hr IVPB Q6 YUKI Last Admin: 05/01/17 10:16 Dose: 100 mls/hr Lamotrigine (Lamictal) 25 mg PO BID [facility] Last Admin: 05/01/17 10:15 Dose: 25 mg Metoprolol Tartrate (Lopressor) 100 mg PO Q12 [facility] Last Admin: 04/26/17 08:28 Dose: 100 mg Ondansetron HCl (Zofran Inj) 4 mg IVP Q6 PRN PRN Reason: Nausea/Vomiting Warfarin Sodium (Coumadin) 10 mg PO ONCE ONE PRN Reason: Protocol Stop: 05/01/17 17:01 - Labs Labs: 04/28/17 07:15 04/28/17 06:15 PT 15.8 Seconds (9.8-13.1) H 05/01/17 08:40 INR 1.4 (0.9-1.2) H 05/01/17 08:40 APTT 26.3 Seconds (25.6-37.1) D 04/25/17 04:30 - Constitutional Appears: No Acute Distress, Chronically Ill - Head Exam Head Exam: NORMAL INSPECTION - Eye Exam Eye Exam: PERRL - ENT Exam ENT Exam: Normal Exam - Neck Exam Neck Exam: Normal Inspection - Respiratory Exam Respiratory Exam: Decreased Breath Sounds (at bases) - Cardiovascular Exam Cardiovascular Exam: Irregular Rhythm - GI/Abdominal Exam GI & Abdominal Exam: Soft, Normal Bowel Sounds - Extremities Exam Extremities Exam: Pedal Edema (decreased edema U/E and L/E) - Back Exam Additional comments: Sacral ulcer - Neurological Exam Neurological Exam: Awake Additional comments: Able to talk, follows commands, no focal motor/sensory deficit, generalized weakness. - Psychiatric Exam Psychiatric exam: Normal Mood - Skin Skin Exam: Warm Assessment and Plan (1) Acute respiratory failure Status: Acute (2) Acute on chronic diastolic (congestive) heart failure Status: Acute (3) Pleural effusion Status: Acute (4) S/P thoracentesis Status: Acute (5) CANDELARIA (acute kidney injury) Status: Resolved (6) HTN (hypertension) Status: Chronic (7) A-fib Status: Chronic (8) Sleep apnea Status: Chronic (9) Lung nodule Status: Acute (10) Hypernatremia Status: Resolved - Assessment and Plan (Free Text) Plan: Continue Zosyn, Duoneb, Diamox, increased Coumadin to 10 po, Heparin and rest of Tx. ICU Time: 40 min.
[2017-05-02] MEDS ORDERED: Metoprolol 1 mg/ml Inj IVP STA (00:47)
--- NOTE | 2017-05-02 00:48 | CP.PCM.PCO ---
Physician Communication Note - Physician Communication Note Physician Communication Note: HR 130-150/min. Lopressor 5mg IV given
[2017-05-02 01:48] LABS: VENOUS BLOOD GAS BASE EXCESS 1.8 mmol/L (0.0-2.0); VENOUS BLOOD GAS PCO2 64 mmHg (40-60); VENOUS BLOOD PH 7.28 (7.32-7.43)
[2017-05-02] MEDS ORDERED: Sterile Water 10 ML IV ONE (02:19)
[2017-05-02] MEDS: Piperacillin/Tazobact 3.375 GM in Sodium Chloride 0.9% 100 ML IVPB SCH ×4 (04:25→21:24)
[2017-05-02 05:05] LABS: BASO # 0.1 K/uL (0.0-0.2); BASO % 1.5 % (0.0-2.0); EOS # 0.3 K/uL (0.0-0.7); EOS % 7.1 % (0.0-4.0); HEMATOCRIT 33.9 % (35.0-51.0); LYMPH # 0.5 K/uL (1.0-4.3); MEAN CELL VOLUME 95.8 fl (80.0-94.0); MEAN CORPUSCULAR HEMOGLOBIN 30.3 pg (27.0-31.0); MEAN CORPUSCULAR HGB CONC 31.6 g/dL (33.0-37.0); MEAN PLATELET VOLUME 8.5 fl (7.2-11.7); MONO # 0.6 K/uL (0.0-0.8); MONO % 11.8 % (0.0-10.0); NEUT # 3.3 K/uL (1.8-7.0); NEUT % 68.6 % (50.0-75.0); NRBC % 0.2 % (0.0-0.0); RED CELL DISTRIBUTION WIDTH 15.9 % (11.5-14.5); WHITE BLOOD COUNT 4.8 K/uL (4.8-10.8)
[2017-05-02 05:18] LABS: ALB/GLOB RATIO 0.8 (1.0-2.1); BILIRUBIN,TOTAL 0.6 mg/dl (0.2-1.3); CALCIUM 8.6 mg/dL (8.4-10.2); POTASSIUM 4.2 MMOL/L (3.6-5.0); TOTAL PROTEIN 5.9 G/DL (6.3-8.2)
--- NOTE | 2017-05-02 06:49 | CP.CCUPN ---
CCU Subjective - Physician Review Subjective (Free Text): Has been on BiPAP overnight, at 16/10, 50% with RR 23 and avg TV 300ml. SPO2 99% , and tolerated reprieve off BiPAP this AM. Had episode of tachycardia with HR up to 130-150 overnight and responded to IVP Lopressor 5 mg. 24H I/O's = negative 0.79L. CCU Objective - Vital Signs / Intake & Output Vital Signs (Last 4 hours): Vital Signs Temp Pulse Resp BP Pulse Ox 05/02/17 06:09 102 H 05/02/17 06:00 73 19 150/80 100 05/02/17 04:00 97.9 F 74 23 145/105 H 100 Intake and Output (Last 8hrs): Intake & Output 05/01/17 05/01/17 05/02/17 14:59 22:59 06:59 Intake Total 100 110 Output Total 1000 Balance 100 -890 Intake: IV 10 Intake, Piggyback 100 100 Output: Urine 1000 Urethral (Wang) 1000 - Physical Exam Head: Positive for: Normocephalic Pupils: Positive for: PERRL Conjunctiva: Positive for: Normal Mouth: Positive for: Moist Mucous Membranes Neck: Positive for: Normal Range of Motion. Negative for: JVD Respiratory/Chest: Positive for: Decreased Breath Sounds, Rhonchi Cardiovascular: Positive for: Irregular Rhythm. Negative for: Murmurs Abdomen: Positive for: Normal Bowel Sounds Upper Extremity: Positive for: Edema, Neurovascularly Intact Lower Extremity: Positive for: Edema, NORMAL PULSES. Negative for: CALF TENDERNESS Neurological: Positive for: Other (on ventilator, opens eyes to verbal stimuli) Skin: Positive for: Other (Unstageable sacral ulcer) Psychiatric: Positive for: Alert, Oriented x 3 - Medications Active Medications: Active Medications Generic Name Dose Route Start Last Admin Trade Name Freq PRN Reason Stop Dose Admin Acetazolamide 250 mg 04/28/17 10:00 05/01/17 21:20 Diamox 500 Mg Inj IV 250 mg Q12 YUKI Administration Albuterol/Ipratropium 3 ml 04/22/17 16:00 05/01/17 19:18 Duoneb 3 Mg/0.5 Mg (3 Ml) Ud INH 3 ml RQID YUKI Administration Famotidine 20 mg 04/18/17 17:00 06/21/17 16:46 Pepcid GT 20 mg BID YUKI Administration Heparin Sodium (Porcine) 5,000 units 04/25/17 09:00 05/01/17 21:21 Heparin SC 5,000 units Q12 YUKI Administration Protocol Home Med 0.5 mg 04/19/17 13:09 05/01/17 10:15 Dutasteride [Avodart] PO 0.5 mg DAILY YUKI Administration Piperacillin Sod/Tazobactam 100 mls @ 100 mls/hr 04/29/17 16:00 05/02/17 04: 25 Sod 3.375 gm/ Sodium Chloride IVPB 100 mls/hr Q6 YUKI Administration Lamotrigine 25 mg 04/15/17 17:00 05/01/17 16:46 Lamictal PO 25 mg BID YUKI Administration Metoprolol Tartrate 100 mg 04/25/17 09:00 04/26/17 08:28 Lopressor PO 100 mg Q12 YUKI Administration Ondansetron HCl 4 mg 04/18/17 15:49 Zofran Inj IVP Q6 PRN Nausea/Vomiting - Patient Studies Lab Studies: Lab Studies 05/02/17 05/02/17 05/02/17 Range/Units 04:30 04:30 04:30 WBC 4.8 (4.8-10.8) K/uL RBC 3.54 L (4.40-5.90) Mil/uL Hgb 10.7 L (12.0-18.0) g/dL Hct 33.9 L (35.0-51.0) % MCV 95.8 H (80.0-94.0) fl MCH 30.3 (27.0-31.0) pg MCHC 31.6 L (33.0-37.0) g/dL RDW 15.9 H (11.5-14.5) % Plt Count 246 (130-400) K/uL MPV 8.5 (7.2-11.7) fl Neut % (Auto) 68.6 (50.0-75.0) % Lymph % (Auto) 11.0 L (20.0-40.0) % [place] % (Auto) 11.8 H (0.0-10.0) % Eos % (Auto) 7.1 H (0.0-4.0) % Baso % (Auto) 1.5 (0.0-2.0) % Neut # 3.3 (1.8-7.0) K/uL Lymph # 0.5 L (1.0-4.3) K/uL [place] # 0.6 (0.0-0.8) K/uL Eos # 0.3 (0.0-0.7) K/uL Baso # 0.1 (0.0-0.2) K/uL PT 17.8 H (9.8-13.1) Seconds INR 1.6 H (0.9-1.2) pO2 (30-55) mm/Hg VBG pH (7.32-7.43) VBG pCO2 (40-60) mmHg VBG HCO3 mmol/L VBG O2 Sat (Calc) (40-65) % VBG Base Excess (0.0-2.0) mmol/L Sodium 145 (132-148) mmol/l Potassium 4.2 (3.6-5.0) MMOL/L Chloride 110 H (98-107) mmol/L Carbon Dioxide 29 (22-30) mmol/L Anion Gap 10 (10-20) BUN 25 H (9-20) mg/dl Creatinine 1.6 H (0.8-1.5) mg/dL Est GFR ( Amer) 51 Est GFR (Non-Af Amer) 42 Random Glucose 101 (75-110) mg/dL Calcium 8.6 (8.4-10.2) mg/dL Total Bilirubin 0.6 (0.2-1.3) mg/dl AST 32 (17-59) U/L ALT 39 (21-72) U/L Alkaline Phosphatase 96 (38-126) U/L Total Protein 5.9 L (6.3-8.2) G/DL Albumin 2.7 L (3.5-5.0) g/dL Globulin 3.2 (2.2-3.9) gm/dL Albumin/Globulin Ratio 0.8 L (1.0-2.1) 05/02/17 05/01/17 Range/Units 01:46 08:40 WBC (4.8-10.8) K/uL RBC (4.40-5.90) Mil/uL Hgb (12.0-18.0) g/dL Hct (35.0-51.0) % MCV (80.0-94.0) fl MCH (27.0-31.0) pg MCHC (33.0-37.0) g/dL RDW (11.5-14.5) % Plt Count (130-400) K/uL MPV (7.2-11.7) fl Neut % (Auto) (50.0-75.0) % Lymph % (Auto) (20.0-40.0) % [place] % (Auto) (0.0-10.0) % Eos % (Auto) (0.0-4.0) % Baso % (Auto) (0.0-2.0) % Neut # (1.8-7.0) K/uL Lymph # (1.0-4.3) K/uL [place] # (0.0-0.8) K/uL Eos # (0.0-0.7) K/uL Baso # (0.0-0.2) K/uL PT 15.8 H (9.8-13.1) Seconds INR 1.4 H (0.9-1.2) pO2 43 (30-55) mm/Hg VBG pH 7.28 L (7.32-7.43) VBG pCO2 64 H (40-60) mmHg VBG HCO3 25.8 mmol/L VBG O2 Sat (Calc) 77.8 H (40-65) % VBG Base Excess 1.8 (0.0-2.0) mmol/L Sodium (132-148) mmol/l Potassium (3.6-5.0) MMOL/L Chloride (98-107) mmol/L Carbon Dioxide (22-30) mmol/L Anion Gap (10-20) BUN (9-20) mg/dl Creatinine (0.8-1.5) mg/dL Est GFR ( Amer) Est GFR (Non-Af Amer) Random Glucose (75-110) mg/dL Calcium (8.4-10.2) mg/dL Total Bilirubin (0.2-1.3) mg/dl AST (17-59) U/L ALT (21-72) U/L Alkaline Phosphatase (38-126) U/L Total Protein (6.3-8.2) G/DL Albumin (3.5-5.0) g/dL Globulin (2.2-3.9) gm/dL Albumin/Globulin Ratio (1.0-2.1) Laboratory Results - last 24 hr 05/01/17 05/02/17 05/02/17 08:40 01:46 04:30 WBC RBC Hgb Hct MCV MCH MCHC RDW Plt Count MPV Neut % (Auto) Lymph % (Auto) [place] % (Auto) Eos % (Auto) Baso % (Auto) Neut # Lymph # [place] # Eos # Baso # PT 15.8 H 17.8 H INR 1.4 H 1.6 H pO2 43 VBG pH 7.28 L VBG pCO2 64 H VBG HCO3 25.8 VBG O2 Sat (Calc) 77.8 H VBG Base Excess 1.8 Sodium Potassium Chloride Carbon Dioxide Anion Gap BUN Creatinine Est GFR ( Amer) Est GFR (Non-Af Amer) Random Glucose Calcium Total Bilirubin AST ALT Alkaline Phosphatase Total Protein Albumin Globulin Albumin/Globulin Ratio 05/02/17 05/02/17 04:30 04:30 WBC 4.8 RBC 3.54 L Hgb 10.7 L Hct 33.9 L MCV 95.8 H MCH 30.3 MCHC 31.6 L RDW 15.9 H Plt Count 246 MPV 8.5 Neut % (Auto) 68.6 Lymph % (Auto) 11.0 L [place] % (Auto) 11.8 H Eos % (Auto) 7.1 H Baso % (Auto) 1.5 Neut # 3.3 Lymph # 0.5 L [place] # 0.6 Eos # 0.3 Baso # 0.1 PT INR pO2 VBG pH VBG pCO2 VBG HCO3 VBG O2 Sat (Calc) VBG Base Excess Sodium 145 Potassium 4.2 Chloride 110 H Carbon Dioxide 29 Anion Gap 10 BUN 25 H Creatinine 1.6 H Est GFR ( Amer) 51 Est GFR (Non-Af Amer) 42 Random Glucose 101 Calcium 8.6 Total Bilirubin 0.6 AST 32 ALT 39 Alkaline Phosphatase 96 Total Protein 5.9 L Albumin 2.7 L Globulin 3.2 Albumin/Globulin Ratio 0.8 L Fingerstick Blood Sugar Results: 202 Review of Systems - Review of Systems All systems: reviewed and no additional remarkable complaints except - EENT Eyes: UNREMARKABLE Nose/Mouth/Throat: UNREMARKABLE - Cardiovascular Cardiovascular: Edema, Leg Edema. absent: Chest Pain, Chest Pain at Rest, Palpitations - Respiratory Respiratory: Chest Congestion, Excessive Mucous Production. absent: Cough, Dyspnea - Gastrointestinal Gastrointestinal: UNREMARKABLE - Genitourinary Genitourinary: UNREMARKABLE - Neurological Neurological: absent: Dizziness, Focal Weakness, Headaches, Paresthesias - Psychiatric Psychiatric: UNREMARKABLE Critical Care Progress Note - Extremities/Vascular Does the Patient have a Central Venous Catheter?: Yes Does the Patient need a Central Venous Catheter?: Yes Does the Patient have a Wang Catheter?: Yes Does the Patient need a Wang Catheter?: Yes Catheter Insertion Criteria: Need for accurate measurement of output in critically ill patient - Prophylaxis GI Prophylaxis GI: Pepsid - Prophylaxis DVT Prophylaxis DVT: SCDs - Nutrition Nutrition: Nutrition Category Date Time Status Dysphagia/Modified Consistency Diet [DIET] Diets 04/30/17 Breakfast Active Assessment/Plan - Assessment and Plan (Free Text) Assessment: Acute Hypoxemic Respiratory failure 2 bilat effusions; and with Atelectasis / pneumonia / tracheobronchitis Azotemia and Hypernatremia A Fib with slow VR and pauses Dementia Plan: - See orders - Patients has refused to allow initiation of Eliquis therapy. Will dose Warfarin at 10mg again today. - Ventilatory support on BiPAP during NIGHTTIME. Reprieve off BiPAP Q4H as tolerated on nasal cannula. HFNC trial 24H ATC. - frequent suctioning and chest physiotherapy as tolerated. - Lopressor changed and decreased to q12h, no further severe bradycardia or significant pauses. - Cautious PO feedings, assists with meals , informed of need for caution with PO meals, and to watch for any or excessive coughing, drooling. Speech Therapist has recommended video swallow study, but patients overall status remains tenuous, with questionable tolerance for study.
[2017-05-02] MEDS: Albuterol-Ipratrop 3 mg / 0.5 (3 ml) UD INH SCH ×4 (08:06→19:18)
[2017-05-02] MEDS: Patient's Own Med (Dutasteride [Avodart] 0.5 MG) PO SCH (09:17)
--- NOTE | 2017-05-02 16:14 | RAD ---
HISTORY: f/u bilat effusions COMPARISON: Comparison made with prior study 04/25/2017 FINDINGS: LUNGS: In situ right-sided PICC line with tip in the SVC unchanged. Mild central pulmonary vascular congestive changes. Bilateral effusions and bibasilar atelectasis and/or infiltrates. PLEURA: No significant pleural effusion identified, no pneumothorax apparent. CARDIOVASCULAR: Heart remains enlarged. OSSEOUS STRUCTURES: No significant abnormalities. VISUALIZED UPPER ABDOMEN: Normal. OTHER FINDINGS: None. IMPRESSION: Mild central pulmonary vascular congestive changes. Bilateral effusions and bibasilar atelectasis and/or infiltrates. In situ right-sided PICC line with tip in the SVC unchanged
[2017-05-02] MEDS: Santyl Collagenase OINTMENT TOP SCH (17:24)
--- NOTE | 2017-05-02 18:24 | CP.PCM.HP ---
Past Patient History - Infectious Disease Hx of Infectious Diseases: None - Past Medical History & Family History Past Medical History?: Yes - Past Social History Smoking Status: Never Smoked Alcohol: None Drugs: Denies Home Situation {Lives}: With Family - CARDIAC Hx Cardiac Disorders: Yes Hx Atrial Fibrillation: Yes Hx Congestive Heart Failure: Yes Hx Hypertension: Yes Hx Peripheral Edema: Yes - PULMONARY Hx Respiratory Disorders: Yes Hx Sleep Apnea: Yes - NEUROLOGICAL Hx Neurological Disorder: Yes HX Cerebrovascular Accident: Yes ( denies) Hx Seizures: Yes Hx Syncope: Yes Hx Transient Ischemic Attacks (TIA): Yes - HEENT Hx HEENT Problems: No - RENAL Hx Chronic Kidney Disease: No - ENDOCRINE/METABOLIC Hx Endocrine Disorders: No - HEMATOLOGICAL/ONCOLOGICAL Hx Blood Disorders: No Hx Human Immunodeficiency Virus (HIV): No - INTEGUMENTARY Hx Dermatological Problems: No - MUSCULOSKELETAL/RHEUMATOLOGICAL Hx Musculoskeletal Disorders: Yes Hx Falls: Yes Hx Unsteady Gait: Yes - GASTROINTESTINAL Hx Gastrointestinal Disorders: No - GENITOURINARY/GYNECOLOGICAL Hx Genitourinary Disorders: Yes Hx Incontinence: Yes Hx Prostate Problems: Yes (BPH) - PSYCHIATRIC Hx Psychophysiologic Disorder: Yes Hx Hallucinations: Yes Hx Substance Use: No - SURGICAL HISTORY Hx Surgeries: No - ANESTHESIA Hx Anesthesia: No Meds Allergies/Adverse Reactions: Allergies Allergy/AdvReac Type Severity Reaction Status Date / Time EGG AdvReac HEADACHE Verified 04/15/17 15:49 seafoods Allergy SWELLING Uncoded 04/15/17 10:02 Results - Vital Signs Recent Vital Signs: Last Vital Signs Temp 97.8 F 05/02/17 16:00 Pulse 101 H 05/02/17 17:00 Resp 23 05/02/17 17:00 BP 164/82 H 05/02/17 17:00 Pulse Ox 100 05/02/17 17:00 - Labs Result Diagrams: 05/02/17 04:30 05/02/17 04:30 Labs: Laboratory Results - last 24 hr 05/02/17 05/02/17 05/02/17 01:46 04:30 04:30 WBC 4.8 RBC 3.54 L Hgb 10.7 L Hct 33.9 L MCV 95.8 H MCH 30.3 MCHC 31.6 L RDW 15.9 H Plt Count 246 MPV 8.5 Neut % (Auto) 68.6 Lymph % (Auto) 11.0 L [place] % (Auto) 11.8 H Eos % (Auto) 7.1 H Baso % (Auto) 1.5 Neut # 3.3 Lymph # 0.5 L [place] # 0.6 Eos # 0.3 Baso # 0.1 PT 17.8 H INR 1.6 H pO2 43 VBG pH 7.28 L VBG pCO2 64 H VBG HCO3 25.8 VBG O2 Sat (Calc) 77.8 H VBG Base Excess 1.8 Sodium Potassium Chloride Carbon Dioxide Anion Gap BUN Creatinine Est GFR ( Amer) Est GFR (Non-Af Amer) Random Glucose Calcium Total Bilirubin AST ALT Alkaline Phosphatase Total Protein Albumin Globulin Albumin/Globulin Ratio 05/02/17 04:30 WBC RBC Hgb Hct MCV MCH MCHC RDW Plt Count MPV Neut % (Auto) Lymph % (Auto) [place] % (Auto) Eos % (Auto) Baso % (Auto) Neut # Lymph # [place] # Eos # Baso # PT INR pO2 VBG pH VBG pCO2 VBG HCO3 VBG O2 Sat (Calc) VBG Base Excess Sodium 145 Potassium 4.2 Chloride 110 H Carbon Dioxide 29 Anion Gap 10 BUN 25 H Creatinine 1.6 H Est GFR ( Amer) 51 Est GFR (Non-Af Amer) 42 Random Glucose 101 Calcium 8.6 Total Bilirubin 0.6 AST 32 ALT 39 Alkaline Phosphatase 96 Total Protein 5.9 L Albumin 2.7 L Globulin 3.2 Albumin/Globulin Ratio 0.8 L Assessment & Plan (1) Acute respiratory failure Status: Acute Priority: High (2) Acute on chronic diastolic (congestive) heart failure Status: Acute Priority: High (3) Pleural effusion Status: Acute (4) S/P thoracentesis Status: Acute (5) CANDELARIA (acute kidney injury) Status: Resolved Priority: High (6) HTN (hypertension) Status: Chronic Priority: High (7) A-fib Status: Chronic Priority: High (8) Sleep apnea Status: Chronic (9) Lung nodule Status: Acute (10) Hypernatremia Status: Resolved
--- NOTE | 2017-05-02 18:25 | CP.PCM.PN ---
Subjective - Date & Time of Evaluation Date of Evaluation: 05/02/17 Time of Evaluation: 14:20 - Subjective Subjective: F/U respiratory failure. Pt awake, eating with the help of , follows commands, able to talk, as per nurse, Pt out of bed, on physical therapy was sitting in the chair able to stand up with help and going back to bed. Objective - Vital Signs/Intake and Output Vital Signs (last 24 hours): Temp Pulse Resp BP Pulse Ox 97.8 F 101 H 23 164/82 H 100 05/02/17 16:00 05/02/17 17:00 05/02/17 17:00 05/02/17 17:00 05/02/17 17:00 Intake and Output: 05/02/17 05/02/17 06:59 18:59 Intake Total 210 440 Output Total 1000 400 Balance -790 40 - Medications Medications: Current Medications Albuterol/Ipratropium (Duoneb 3 Mg/0.5 Mg (3 Ml) Ud) 3 ml INH RQID [facility] Last Admin: 05/02/17 15:28 Dose: 3 ml Collagenase (Santyl) 1 applic TOP DAILY [facility] Last Admin: 05/02/17 17:24 Dose: 1 appl Famotidine (Pepcid) 20 mg GT BID [facility] Last Admin: 05/02/17 17:28 Dose: 20 mg Heparin Sodium (Porcine) (Heparin) 5,000 units SC Q12 [facility] PRN Reason: Protocol Last Admin: 05/02/17 09:17 Dose: 5,000 units Home Med (Dutasteride [Avodart]) 0.5 mg PO DAILY [facility] Last Admin: 05/02/17 09:17 Dose: 0.5 mg Piperacillin Sod/Tazobactam (Sod 3.375 gm/ Sodium Chloride) 100 mls @ 100 mls/ hr IVPB Q6 [facility] Last Admin: 05/02/17 16:40 Dose: 100 mls/hr Lamotrigine (Lamictal) 25 mg PO BID [facility] Last Admin: 05/02/17 17:29 Dose: 25 mg Metolazone (Zaroxolyn) 5 mg PO DAILY [facility] Stop: 05/09/17 18:01 Metoprolol Tartrate (Lopressor) 100 mg PO Q12 [facility] Last Admin: 04/26/17 08:28 Dose: 100 mg Ondansetron HCl (Zofran Inj) 4 mg IVP Q6 PRN PRN Reason: Nausea/Vomiting - Labs Labs: 05/02/17 04:30 05/02/17 04:30 PT 17.8 Seconds (9.8-13.1) H 05/02/17 04:30 INR 1.6 (0.9-1.2) H 05/02/17 04:30 APTT 26.3 Seconds (25.6-37.1) D 04/25/17 04:30 - Constitutional Appears: No Acute Distress, Chronically Ill - Head Exam Head Exam: NORMAL INSPECTION - Eye Exam Eye Exam: PERRL - ENT Exam ENT Exam: Normal Exam - Neck Exam Neck Exam: Normal Inspection - Respiratory Exam Respiratory Exam: Decreased Breath Sounds (at bases) - Cardiovascular Exam Cardiovascular Exam: Irregular Rhythm - GI/Abdominal Exam GI & Abdominal Exam: Soft, Normal Bowel Sounds - Extremities Exam Extremities Exam: Pedal Edema (decreased edema U/E, L/E) - Back Exam Additional comments: Sacral ulcer - Neurological Exam Neurological Exam: Awake Additional comments: Able to talk, follows commands, no focal motor/sensory deficit, generalized weakness. - Psychiatric Exam Psychiatric exam: Normal Mood - Skin Skin Exam: Warm Assessment and Plan (1) Acute respiratory failure Status: Acute (2) Acute on chronic diastolic (congestive) heart failure Status: Acute (3) Pleural effusion Status: Acute (4) S/P thoracentesis Status: Acute (5) CANDELARIA (acute kidney injury) Status: Resolved (6) HTN (hypertension) Status: Chronic (7) A-fib Status: Chronic (8) Sleep apnea Status: Chronic (9) Lung nodule Status: Acute (10) Hypernatremia Status: Deleted - Assessment and Plan (Free Text) Plan: HR increased last night, Lopressor 100 q 12 was DC, there after started on Lopressor 50 bid, Coumadin 10 mg and rest of Tx. ICU Time: 40 min.
[2017-05-02] MEDS: metOLazone 5 MG TAB PO SCH (19:35)
[2017-05-03] MEDS: Piperacillin/Tazobact 3.375 GM in Sodium Chloride 0.9% 100 ML IVPB SCH ×2 (03:12→09:37)
[2017-05-03 05:25] LABS: EOS # 0.3 K/uL (0.0-0.7); LYMPH # 0.5 K/uL (1.0-4.3); LYMPH % 12.1 % (20.0-40.0); MEAN CELL VOLUME 95.2 fl (80.0-94.0); MEAN CORPUSCULAR HEMOGLOBIN 29.9 pg (27.0-31.0); MEAN CORPUSCULAR HGB CONC 31.4 g/dL (33.0-37.0); MEAN PLATELET VOLUME 7.9 fl (7.2-11.7); MONO # 0.6 K/uL (0.0-0.8); MONO % 13.9 % (0.0-10.0); NEUT # 2.6 K/uL (1.8-7.0); RED CELL DISTRIBUTION WIDTH 16.1 % (11.5-14.5); WHITE BLOOD COUNT 4.1 K/uL (4.8-10.8)
[2017-05-03 05:38] LABS: ALB/GLOB RATIO 0.8 (1.0-2.1); BILIRUBIN,TOTAL 0.7 mg/dl (0.2-1.3); CALCIUM 8.4 mg/dL (8.4-10.2); POTASSIUM 3.8 MMOL/L (3.6-5.0); TOTAL PROTEIN 5.7 G/DL (6.3-8.2)
--- NOTE | 2017-05-03 07:00 | CP.CCUPN ---
CCU Subjective - Physician Review Subjective (Free Text): On BiPAP overnight, at 16/10, 50% with RR 18 and avg TV 460ml. SPO2 99%, he has visible skin breakdown over the nasal bridge area. No recurrent tachyarrthmias. 24H I/O's = neg 0.34L. ot that easily arousable when on BiPAP, wkefulness is brief and he is slow to respond, even from interaction with . CCU Objective - Vital Signs / Intake & Output Vital Signs (Last 4 hours): Vital Signs Temp Pulse Resp BP Pulse Ox 05/03/17 06:00 66 18 160/101 H 100 05/03/17 04:00 98.4 F 78 17 111/74 98 05/03/17 03:55 55 L Intake and Output (Last 8hrs): Intake & Output 05/02/17 05/02/17 05/03/17 14:59 22:59 06:59 Intake Total 300 200 200 Output Total 240 160 640 Balance 60 40 -440 Intake: IV 100 140 Intake, Piggyback 200 Oral 200 60 Output: Urine 240 160 640 Urethral (Wang) 240 160 640 - Physical Exam Head: Positive for: Normocephalic Pupils: Positive for: PERRL Conjunctiva: Positive for: Normal Mouth: Positive for: Moist Mucous Membranes Nose (External): Positive for: Atraumatic Nose (Internal): Positive for: Normal Inspection Neck: Positive for: Normal Range of Motion. Negative for: JVD Respiratory/Chest: Positive for: Decreased Breath Sounds, Rhonchi Cardiovascular: Positive for: Irregular Rhythm. Negative for: Murmurs Abdomen: Positive for: Normal Bowel Sounds Upper Extremity: Positive for: Edema, Neurovascularly Intact Lower Extremity: Positive for: Edema, NORMAL PULSES. Negative for: CALF TENDERNESS Neurological: Positive for: Other (on ventilator, opens eyes to verbal stimuli) Skin: Positive for: Warm, Other (Unstageable sacral ulcer). Negative for: Rashes Psychiatric: Positive for: Alert, Oriented x 3 - Medications Active Medications: Active Medications Generic Name Dose Route Start Last Admin Trade Name Freq PRN Reason Stop Dose Admin Albuterol/Ipratropium 3 ml 04/22/17 16:00 05/02/17 19:18 Duoneb 3 Mg/0.5 Mg (3 Ml) Ud INH 3 ml RQID [facility] Administration Collagenase 1 applic 05/02/17 16:00 05/02/17 17:24 Santyl TOP 1 appl DAILY [facility] Administration Famotidine 20 mg 04/18/17 17:00 05/02/17 17:28 Pepcid GT 20 mg BID [facility] Administration Heparin Sodium (Porcine) 5,000 units 04/25/17 09:00 05/02/17 21:52 Heparin SC 5,000 units Q12 [facility] Administration Protocol Home Med 0.5 mg 04/19/17 13:09 05/02/17 09:17 Dutasteride [Avodart] PO 0.5 mg DAILY [facility] Administration Piperacillin Sod/Tazobactam 100 mls @ 100 mls/hr 04/29/17 16:00 05/03/17 03: 12 Sod 3.375 gm/ Sodium Chloride IVPB 100 mls/hr Q6 [facility] Administration Lamotrigine 25 mg 04/15/17 17:00 05/02/17 17:29 Lamictal PO 25 mg BID [facility] Administration Metolazone 5 mg 05/02/17 18:00 05/02/17 19:35 Zaroxolyn PO 05/09/17 18:01 5 mg DAILY [facility] Administration Metoprolol Tartrate 100 mg 04/25/17 09:00 05/02/17 21:31 Lopressor PO 100 mg Q12 [facility] Administration Ondansetron HCl 4 mg 04/18/17 15:49 Zofran Inj IVP Q6 PRN Nausea/Vomiting - Patient Studies Lab Studies: Lab Studies 05/03/17 05/03/17 05/03/17 Range/Units 04:30 04:30 04:30 WBC 4.1 L (4.8-10.8) K/uL RBC 3.36 L (4.40-5.90) Mil/uL Hgb 10.0 L (12.0-18.0) g/dL Hct 32.0 L (35.0-51.0) % MCV 95.2 H (80.0-94.0) fl MCH 29.9 (27.0-31.0) pg MCHC 31.4 L (33.0-37.0) g/dL RDW 16.1 H (11.5-14.5) % Plt Count 233 (130-400) K/uL MPV 7.9 (7.2-11.7) fl Neut % (Auto) 65.0 (50.0-75.0) % Lymph % (Auto) 12.1 L (20.0-40.0) % Valley % (Auto) 13.9 H (0.0-10.0) % Eos % (Auto) 8.0 H (0.0-4.0) % Baso % (Auto) 1.0 (0.0-2.0) % Neut # 2.6 (1.8-7.0) K/uL Lymph # 0.5 L (1.0-4.3) K/uL Valley # 0.6 (0.0-0.8) K/uL Eos # 0.3 (0.0-0.7) K/uL Baso # 0.0 (0.0-0.2) K/uL PT 35.6 H D (9.8-13.1) Seconds INR 3.1 H D (0.9-1.2) Sodium 145 (132-148) mmol/l Potassium 3.8 (3.6-5.0) MMOL/L Chloride 110 H (98-107) mmol/L Carbon Dioxide 28 (22-30) mmol/L Anion Gap 11 (10-20) BUN 23 H (9-20) mg/dl Creatinine 1.5 (0.8-1.5) mg/dL Est GFR ( Amer) 55 Est GFR (Non-Af Amer) 45 Random Glucose 92 (75-110) mg/dL Calcium 8.4 (8.4-10.2) mg/dL Total Bilirubin 0.7 (0.2-1.3) mg/dl AST 27 (17-59) U/L ALT 40 (21-72) U/L Alkaline Phosphatase 92 (38-126) U/L Total Protein 5.7 L (6.3-8.2) G/DL Albumin 2.5 L (3.5-5.0) g/dL Globulin 3.1 (2.2-3.9) gm/dL Albumin/Globulin Ratio 0.8 L (1.0-2.1) Laboratory Results - last 24 hr 05/03/17 05/03/17 05/03/17 04:30 04:30 04:30 WBC 4.1 L RBC 3.36 L Hgb 10.0 L Hct 32.0 L MCV 95.2 H MCH 29.9 MCHC 31.4 L RDW 16.1 H Plt Count 233 MPV 7.9 Neut % (Auto) 65.0 Lymph % (Auto) 12.1 L Valley % (Auto) 13.9 H Eos % (Auto) 8.0 H Baso % (Auto) 1.0 Neut # 2.6 Lymph # 0.5 L Valley # 0.6 Eos # 0.3 Baso # 0.0 PT 35.6 H D INR 3.1 H D Sodium 145 Potassium 3.8 Chloride 110 H Carbon Dioxide 28 Anion Gap 11 BUN 23 H Creatinine 1.5 Est GFR ( Amer) 55 Est GFR (Non-Af Amer) 45 Random Glucose 92 Calcium 8.4 Total Bilirubin 0.7 AST 27 ALT 40 Alkaline Phosphatase 92 Total Protein 5.7 L Albumin 2.5 L Globulin 3.1 Albumin/Globulin Ratio 0.8 L Fingerstick Blood Sugar Results: 202 Review of Systems - Review of Systems All systems: reviewed and no additional remarkable complaints except - EENT Eyes: absent: Other Visual Disturbances Ears: Decreased Hearing - Cardiovascular Cardiovascular: Edema, Pedal Edema. absent: Chest Pain, Palpitations - Respiratory Respiratory: Chest Congestion - Gastrointestinal Gastrointestinal: absent: Abdominal Pain, Nausea, Vomiting - Neurological Neurological: absent: Numbness, Focal Weakness Critical Care Progress Note - Extremities/Vascular Does the Patient have a Central Venous Catheter?: Yes Does the Patient need a Central Venous Catheter?: Yes Does the Patient have a Wang Catheter?: Yes Does the Patient need a Wang Catheter?: Yes Catheter Insertion Criteria: Stage 3/Stage 4 decubits as per policy ( unstageable sacral ulceer) - Prophylaxis GI Prophylaxis GI: Pepsid - Prophylaxis DVT Prophylaxis DVT: Warfarin, SCDs - Nutrition Nutrition: Nutrition Category Date Time Status Dysphagia/Modified Consistency Diet [DIET] Diets 04/30/17 Breakfast Active Assessment/Plan - Assessment and Plan (Free Text) Assessment: Acute Hypoxemic Respiratory failure 2 bilat effusions; and with Atelectasis / pneumonia / tracheobronchitis Azotemia and s/p Hypernatremia A Fib with variable VR (slow VR and pauses at times) Dementia Plan: - Patients still refusing initiation of Eliquis therapy, and has not discussed with Dr. Reza. Warfarin therapeutic today if not just slightly elevated. Discuss with Cardio: warfarin dose 5.0 7.5 mg today? - Ventilatory support on BiPAP during NIGHTTIME. Reprieve off BiPAP Q4H as tolerated on nasal cannula. HFNC trial 24H ATC today instead of nighttime BiPAP ; and he may be TOO LETHARGIC to be on BiPAP. Check ABG. Discontinued Diamox. - frequent suctioning and chest physiotherapy as tolerated. - Lopressor changed and decreased to q12h, no further severe bradycardia or significant pauses. - Cautious PO feedings, assists with meals , informed of need for caution with PO meals, and to watch for any s/sx of aspiration. Speech Therapist has recommended video swallow study, but tenuous patient-tolerance for study. - Palliative care eval appears appropriate, I see no overall improvement in status over the last 2 weeks, especially resp status with ongoing watch for need for resumption of MV support. Self-mobilization of secretions is poor with weak cough and slow re-accumulation of pleural fluid noted. Diuretics started in attempt to improve anasarca. Renal function is impaired as well with azotemic BUN/Cr and probable CKD. Need discussion with regarding resuscitation, but she remains very optimistic on patients recovery.
[2017-05-03] MEDS: Albuterol-Ipratrop 3 mg / 0.5 (3 ml) UD INH SCH ×4 (07:47→19:16)
[2017-05-03] MEDS: Santyl Collagenase OINTMENT TOP SCH (08:03)
[2017-05-03] MEDS: Patient's Own Med (Dutasteride [Avodart] 0.5 MG) PO SCH (08:39)
[2017-05-03] MEDS: metOLazone 5 MG TAB PO SCH (08:40)
--- NOTE | 2017-05-03 12:24 | RAD ---
HISTORY: f/u effusions COMPARISON: No prior. FINDINGS: LUNGS: There is no significant interval change in left lower airspace disease. PLEURA: Again seen are moderate pleural effusions, larger on the left. No pneumothorax. CARDIOVASCULAR: Normal. OSSEOUS STRUCTURES: No significant abnormalities. VISUALIZED UPPER ABDOMEN: Normal. OTHER FINDINGS: None. IMPRESSION: No significant interval change in moderate pleural effusions, larger on the left. No change in left lower lobe atelectasis/pneumonia. Follow-up to resolution is advised.
--- NOTE | 2017-05-03 13:32 | CP.PCM.PN ---
Subjective - Date & Time of Evaluation Date of Evaluation: 05/03/17 Time of Evaluation: 13:31 - Subjective Subjective: I was called for reevaluation because of the rising creatinine somewhat Patient sitting up in the chair and he has been fed by his patient is not eating good. Vital sign noted Physical exam Sitting up in the chair The at the bedside Chest few rhonchi Heart no rubs irregular Abdomen some ascites perhaps Extremity no edema noted The lab review And serum creatinine going up 1.5 Serum albumin is very low 2.5 I suggest to hold off Zaroxolyn for may be couple days only keep monitoring his fluid volume. Also I recommend to give them albumin and the next 24 hours and see what happens to the kidney function. Objective - Vital Signs/Intake and Output Vital Signs (last 24 hours): Temp Pulse Resp BP Pulse Ox 98.7 F 73 23 155/83 H 100 05/03/17 09:00 05/03/17 09:14 05/03/17 09:00 05/03/17 09:14 05/03/17 09:00 Intake and Output: 05/03/17 05/03/17 06:59 18:59 Intake Total 260 270 Output Total 640 120 Balance -380 150 - Medications Medications: Current Medications Albuterol/Ipratropium (Duoneb 3 Mg/0.5 Mg (3 Ml) Ud) 3 ml INH RQID [facility] Last Admin: 05/03/17 11:28 Dose: 3 ml Collagenase (Santyl) 1 applic TOP DAILY [facility] Last Admin: 05/03/17 08:03 Dose: 1 appl Famotidine (Pepcid) 20 mg GT BID [facility] Last Admin: 05/03/17 08:40 Dose: 20 mg Heparin Sodium (Porcine) (Heparin) 5,000 units SC Q12 [facility] PRN Reason: Protocol Last Admin: 05/03/17 08:40 Dose: 5,000 units Home Med (Dutasteride [Avodart]) 0.5 mg PO DAILY [facility] Last Admin: 05/03/17 08:39 Dose: 0.5 mg Lamotrigine (Lamictal) 25 mg PO BID [facility] Last Admin: 05/03/17 08:40 Dose: 25 mg Metolazone (Zaroxolyn) 5 mg PO DAILY [facility] Stop: 05/09/17 18:01 Last Admin: 05/03/17 08:40 Dose: 5 mg Metoprolol Tartrate (Lopressor) 50 mg PO Q12 [facility] Last Admin: 05/03/17 09:14 Dose: 50 mg Ondansetron HCl (Zofran Inj) 4 mg IVP Q6 PRN PRN Reason: Nausea/Vomiting Warfarin Sodium (Coumadin) 1 mg PO QD5 [facility] PRN Reason: Protocol Stop: 05/03/17 17:01 - Labs Labs: 05/03/17 04:30 05/03/17 04:30 PT 35.6 Seconds (9.8-13.1) H D 05/03/17 04:30 INR 3.1 (0.9-1.2) H D 05/03/17 04:30 APTT 26.3 Seconds (25.6-37.1) D 04/25/17 04:30 Assessment and Plan (1) CANDELARIA (acute kidney injury) Status: Resolved (2) Acute respiratory failure Status: Acute
[2017-05-03 14:17] LABS: ABG ALLEN TEST YES; ARTERIAL BLOOD GAS HCO3 27.8 mmol/L (21-28); ARTERIAL BLOOD GAS O2 CAPACITY 16.1 mL/dL (16-24); ARTERIAL BLOOD GAS O2 CONTENT 15.8 ML/dL (15-23); ARTERIAL BLOOD GAS PH 7.43 (7.35-7.45); ARTERIAL BLOOD GAS PO2 84 mm/Hg (80-100); ARTERIAL BLOOD HGB O2 SAT 95.6 % (95.0-98.0); CARBOXYHEMOGLOBIN 1.3 % (0.5-1.5); HHB 1.9 % (0.0-5.0); METHEMOGLOBIN 1.1 % (0.0-3.0)
--- NOTE | 2017-05-03 14:57 | CP.PCM.PN ---
Subjective - Date & Time of Evaluation Date of Evaluation: 05/03/17 Time of Evaluation: 11:30 - Subjective Subjective: F/U Respiratory failure Follows commands , smiling at times, falling sleep easily , awakening to verbal stimuli , answer questions with short words , used BIPAP at night , on high flow O2 due to open skin area nasal bridge , Patient's at bedside Objective - Vital Signs/Intake and Output Vital Signs (last 24 hours): Temp Pulse Resp BP Pulse Ox 98.7 F 73 23 155/83 H 100 05/03/17 09:00 05/03/17 09:14 05/03/17 09:00 05/03/17 09:14 05/03/17 09:00 Intake and Output: 05/03/17 05/03/17 06:59 18:59 Intake Total 260 270 Output Total 640 120 Balance -380 150 - Medications Medications: Current Medications Albumin Human (Albumin Human 25% (12.5 Gm/50 Ml)) 12.5 gm IV Q12 [facility] Stop: 05/04/17 09:01 Albuterol/Ipratropium (Duoneb 3 Mg/0.5 Mg (3 Ml) Ud) 3 ml INH RQID [facility] Last Admin: 05/03/17 11:28 Dose: 3 ml Collagenase (Santyl) 1 applic TOP DAILY [facility] Last Admin: 05/03/17 08:03 Dose: 1 appl Famotidine (Pepcid) 20 mg GT BID [facility] Last Admin: 05/03/17 08:40 Dose: 20 mg Heparin Sodium (Porcine) (Heparin) 5,000 units SC Q12 [facility] PRN Reason: Protocol Last Admin: 05/03/17 08:40 Dose: 5,000 units Home Med (Dutasteride [Avodart]) 0.5 mg PO DAILY [facility] Last Admin: 05/03/17 08:39 Dose: 0.5 mg Lamotrigine (Lamictal) 25 mg PO BID [facility] Last Admin: 05/03/17 08:40 Dose: 25 mg Metoprolol Tartrate (Lopressor) 50 mg PO Q12 [facility] Last Admin: 05/03/17 09:14 Dose: 50 mg Ondansetron HCl (Zofran Inj) 4 mg IVP Q6 PRN PRN Reason: Nausea/Vomiting Warfarin Sodium (Coumadin) 1 mg PO QD5 [facility] PRN Reason: Protocol Stop: 05/03/17 17:01 - Labs Labs: 05/03/17 04:30 05/03/17 04:30 PT 35.6 Seconds (9.8-13.1) H D 05/03/17 04:30 INR 3.1 (0.9-1.2) H D 05/03/17 04:30 APTT 26.3 Seconds (25.6-37.1) D 04/25/17 04:30 - Constitutional Appears: No Acute Distress, Chronically Ill - Head Exam Head Exam: NORMAL INSPECTION - Eye Exam Eye Exam: PERRL - ENT Exam ENT Exam: Normal Oropharynx Additional comments: skin breakdown nasal bridge - Neck Exam Neck Exam: Normal Inspection - Respiratory Exam Respiratory Exam: Decreased Breath Sounds (at bases) - Cardiovascular Exam Cardiovascular Exam: Irregular Rhythm - GI/Abdominal Exam GI & Abdominal Exam: Soft, Normal Bowel Sounds - Exam Additional comments: Edema U/E L/E - Extremities Exam Extremities Exam: Pedal Edema (edema U/E and L/E) - Back Exam Additional comments: Sacral ulcer DTI - Neurological Exam Neurological Exam: Awake Additional comments: Able to talk, follows commands,no focal motor sensory deficit, generalized weakness. - Psychiatric Exam Psychiatric exam: Normal Mood - Skin Skin Exam: Warm Assessment and Plan (1) Acute respiratory failure Status: Acute (2) Acute on chronic diastolic (congestive) heart failure Status: Acute (3) Pleural effusion Status: Acute (4) S/P thoracentesis Status: Acute (5) CANDELARIA (acute kidney injury) Status: Resolved (6) HTN (hypertension) Status: Chronic (7) A-fib Status: Chronic (8) Sleep apnea Status: Chronic (9) Lung nodule Status: Acute (10) Hypernatremia Status: Deleted - Assessment and Plan (Free Text) Plan: Pleural effusions B/L increasing , yesterday on Lopressor 100mg po was having pauses and bradycardia , today Lopressor 50mg , AFib with heart rate controlled, Creatinine increased to 1.6 , Lasix DC , on Metolazone , f/u ABG , Renal consult ICU Time: 38 min.
[2017-05-03] MEDS: Albumin Human 25% (12.5 gm/50 ml) IV SCH ×2 (16:35→21:00)
[2017-05-04] MEDS: Albuterol-Ipratrop 3 mg / 0.5 (3 ml) UD INH SCH ×4 (07:32→19:03)
[2017-05-04] MEDS: Patient's Own Med (Dutasteride [Avodart] 0.5 MG) PO SCH (08:40)
[2017-05-04] MEDS: Santyl Collagenase OINTMENT TOP SCH (08:44)
--- NOTE | 2017-05-04 09:33 | CP.PCM.PN ---
Subjective - Date & Time of Evaluation Date of Evaluation: 05/04/17 Time of Evaluation: 09:10 - Subjective Subjective: Has periods of wakefulness ( during which he has eaten his breakfast, feeding him) interspersed with periods when he can not be roused A Fib at 70-80 BPM (On metoprolol) BP 130/74 mm Hg Anasarca persists (Has received IV Albumin) S Alb level 2.5 Gms (Chest x- rays show gradual reaccumulation of pleural fluid) ABGs yesterday show adequate oxygenation/ Co2 level and normal pH on O2 supplement BUN/Cretinin stable with fairly stable electrolytes Today's INR 2.4 (Warfarin ordered) Over last 18 days pt has not made significant progress (In spite of have copious amounts of pleural fluid removed) Had a long talk with his boom tender in [place] about pt's lack of progress. He agrees that there may not be much potential for recovery here. Pt's is quite reluctant to see this failure to progress. Will continue present Rx Objective - Vital Signs/Intake and Output Vital Signs (last 24 hours): Temp Pulse Resp BP Pulse Ox 97.8 F 90 19 164/81 H 100 05/04/17 08:13 05/04/17 08:44 05/04/17 08:13 05/04/17 08:44 05/04/17 08:13 Intake and Output: 05/04/17 05/04/17 06:59 18:59 Intake Total 50 Output Total 850 80 Balance -800 -80 - Medications Medications: Current Medications Albuterol/Ipratropium (Duoneb 3 Mg/0.5 Mg (3 Ml) Ud) 3 ml INH RQID [facility] Last Admin: 05/04/17 07:32 Dose: 3 ml Collagenase (Santyl) 1 applic TOP DAILY [facility] Last Admin: 05/04/17 08:44 Dose: 1 appl Docusate Sodium (Colace Liquid) 200 mg PO DAILY [facility] Famotidine (Pepcid) 20 mg GT BID [facility] Last Admin: 05/04/17 08:44 Dose: 20 mg Home Med (Dutasteride [Avodart]) 0.5 mg PO DAILY [facility] Last Admin: 05/04/17 08:40 Dose: 0.5 mg Lamotrigine (Lamictal) 25 mg PO BID [facility] Last Admin: 05/04/17 08:43 Dose: 25 mg Metoprolol Tartrate (Lopressor) 25 mg PO Q12 [facility] Last Admin: 05/04/17 08:44 Dose: 25 mg Warfarin Sodium (Coumadin) 2.5 mg PO QD5 [facility] PRN Reason: Protocol Stop: 05/04/17 17:01 - Labs Labs: 05/03/17 04:30 05/03/17 04:30 PT 27.8 Seconds (9.8-13.1) H D 05/04/17 05:30 INR 2.4 (0.9-1.2) H D 05/04/17 05:30 APTT 26.3 Seconds (25.6-37.1) D 04/25/17 04:30
[2017-05-04] MEDS: Albumin Human 25% (12.5 gm/50 ml) IV SCH (09:38)
[2017-05-04 10:11] LABS: ABG ALLEN TEST YES; ARTERIAL BLOOD FLOW 20; ARTERIAL BLOOD GAS HCO3 27.9 mmol/L (21-28); ARTERIAL BLOOD GAS MODE HIGH FLOW LPM; ARTERIAL BLOOD GAS O2 CAPACITY 15.3 mL/dL (16-24); ARTERIAL BLOOD GAS O2 CONTENT 14.6 ML/dL (15-23); ARTERIAL BLOOD GAS PH 7.39 (7.35-7.45); ARTERIAL BLOOD GAS PO2 67 mm/Hg (80-100); ARTERIAL BLOOD HGB O2 SAT 93.3 % (95.0-98.0); CARBOXYHEMOGLOBIN 1.4 % (0.5-1.5); HHB 4.3 % (0.0-5.0)
--- NOTE | 2017-05-04 13:28 | CP.CCUPN ---
CCU Subjective - Physician Review Events Since Last Encounter (Free Text): 05/04/17 13:27 intermittently lethargic. CCU Objective - Vital Signs / Intake & Output Vital Signs (Last 4 hours): Vital Signs Temp Pulse Resp BP Pulse Ox 05/04/17 12:00 97.9 F 65 12 160/95 H 99 05/04/17 11:27 65 05/04/17 10:29 72 Intake and Output (Last 8hrs): Intake & Output 05/03/17 05/04/17 05/04/17 22:59 06:59 14:59 Intake Total 50 0 Output Total 850 80 Balance 50 -850 -80 Intake: IV 0 0 Intake, Piggyback 50 Output: Urine 850 80 Urethral (Ko) 850 80 - Physical Exam Physical Exam Limitations: Positive for: Altered Mental Status Head: Positive for: Normocephalic Pupils: Positive for: PERRL Conjunctiva: Positive for: Normal Mouth: Positive for: Moist Mucous Membranes Nose (External): Positive for: Atraumatic Nose (Internal): Positive for: Normal Inspection Neck: Positive for: Normal Range of Motion. Negative for: JVD Respiratory/Chest: Positive for: Decreased Breath Sounds, Rhonchi Cardiovascular: Positive for: Irregular Rhythm. Negative for: Murmurs Abdomen: Positive for: Normal Bowel Sounds Upper Extremity: Positive for: Edema, Neurovascularly Intact Lower Extremity: Positive for: Edema, NORMAL PULSES. Negative for: CALF TENDERNESS Neurological: Positive for: Other (on ventilator, opens eyes to verbal stimuli) Skin: Positive for: Warm, Other (Unstageable sacral ulcer). Negative for: Rashes Psychiatric: Positive for: Alert, Oriented x 3 - Medications Active Medications: Active Medications Generic Name Dose Route Start Last Admin Trade Name Freq PRN Reason Stop Dose Admin Albuterol/Ipratropium 3 ml 04/22/17 16:00 05/04/17 11:24 Duoneb 3 Mg/0.5 Mg (3 Ml) Ud INH 3 ml RQID YUKI Administration Collagenase 1 applic 05/02/17 16:00 05/04/17 08:44 Santyl TOP 1 appl DAILY YUKI Administration Docusate Sodium 200 mg 05/04/17 09:00 05/04/17 09:37 Colace Liquid PO 200 mg DAILY [facility]I Administration Famotidine 20 mg 04/18/17 17:00 05/04/17 08:44 Pepcid GT 20 mg BID YUKI Administration Furosemide 40 mg 05/04/17 13:30 Lasix IVP Q12H Y[facility]I Lamotrigine 25 mg 04/15/17 17:00 05/04/17 08:43 Lamictal PO 25 mg BID YUKI Administration Metoprolol Tartrate 25 mg 05/04/17 11:17 Lopressor PO Q12 [facility] Warfarin Sodium 2.5 mg 05/04/17 17:00 Coumadin PO 05/04/17 17:01 QD5 [facility] Protocol - Patient Studies Lab Studies: Lab Studies 05/04/17 05/04/17 05/03/17 Range/Units 10:09 05:30 13:08 PT 27.8 H D (9.8-13.1) Seconds INR 2.4 H D (0.9-1.2) pCO2 49 H 43 (35-45) mm/Hg pO2 67 L 84 (80-100) mm/Hg HCO3 27.9 27.8 (21-28) mmol/L ABG pH 7.39 7.43 (7.35-7.45) ABG Total CO2 31.2 H 29.8 H (22-28) mmol/L ABG O2 Saturation 95.6 98.1 H (95-98) % ABG O2 Content 14.6 L 15.8 (15-23) ML/dL ABG Base Excess 3.9 H 3.7 H (-2.0-3.0) mmol/L ABG Hemoglobin 11.1 L 11.7 (11.7-17.4) g/dL ABG Carboxyhemoglobin 1.4 1.3 (0.5-1.5) % POC ABG HHb (Measured) 4.3 1.9 (0.0-5.0) % ABG Methemoglobin 1.0 1.1 (0.0-3.0) % ABG O2 Capacity 15.3 L 16.1 (16-24) mL/dL Broderick Test Yes Yes A-a O2 Difference 228.0 219.0 mm/Hg Hgb O2 Saturation 93.3 L 95.6 (95.0-98.0) % Liter Flow 20 Vent Mode High flow lpm FiO2 50.0 50.0 % Blood Gas Comments High flow 20l/m 50% Crit Value Read Back N Laboratory Results - last 24 hr 05/03/17 05/04/17 05/04/17 13:08 05:30 10:09 PT 27.8 H D INR 2.4 H D pCO2 43 49 H pO2 84 67 L HCO3 27.8 27.9 ABG pH 7.43 7.39 ABG Total CO2 29.8 H 31.2 H ABG O2 Saturation 98.1 H 95.6 ABG O2 Content 15.8 14.6 L ABG Base Excess 3.7 H 3.9 H ABG Hemoglobin 11.7 11.1 L ABG Carboxyhemoglobin 1.3 1.4 POC ABG HHb (Measured) 1.9 4.3 ABG Methemoglobin 1.1 1.0 ABG O2 Capacity 16.1 15.3 L Broderick Test Yes Yes A-a O2 Difference 219.0 228.0 Hgb O2 Saturation 95.6 93.3 L Liter Flow 20 Vent Mode High flow lpm FiO2 50.0 50.0 Blood Gas Comments High flow 20l/m 50% Crit Value Read Back N Fingerstick Blood Sugar Results: 202 Review of Systems - Review of Systems Systems not reviewed;Unavailable: Altered Mental Status Critical Care Progress Note - Nutrition Nutrition: Nutrition Category Date Time Status Dysphagia/Modified Consistency Diet [DIET] Diets 05/03/17 Dinner Active Assessment/Plan (1) Acute respiratory failure Assessment and plan: 76yo M. PMHx Afib on Coumadin, CAD, CVA, chronic systolic and diastolic CHF, HTN , SUSAN, BPH, PNA. p/w acute respiratory failure requiring intubation (04/15). Self-Extubated (o04/21). Thoracentesis (04/17, 04/22, 04/24). Neuro: lethargic at times from hypercarbia and hypoxia. Patient needs aggressive physical therapy, would benefit from transfer to rehab. Pulm: Patient has hypercarbic and hypoxic respiratory failure requiring intermittent BIPAP and BIPAP at night. patient is severely deconditioned. Duonebs qid. pulmonary edema from acute on chronic CHF, starting diuresis with lasix q12h. CV: hemodynamically stable. low dose lopressor for rate control of pAFib. Hem: anemia of chronic disease. Warfarin for stroke prophylaxis with Afib. Renal: acute kidney injury improved, urine output wnl. Endo: no acute issues GI: dysphagia diet, puree with honey thick liquids. ID: no acute issues DVT proph - warfarin GI proph - pepcid ko for strict I/O's during acute illness Code status - full code Critical Care Time spent 35 minutes The documented time is cumulative and includes review of patient data/exams/labs /chart review and examination of the patient on rounds and throughout the day; time is exclusive of any procedures or teaching time. Current Visit: Yes Status: Acute Priority: High
[2017-05-04] MEDS ORDERED: Chlorhexidine Gluconate 1 APPL/PKT TP ONE (14:28)
[2017-05-04] MEDS: Albumin Human 5% (12.5 gm/250 ml) IV SCH (15:22)
--- NOTE | 2017-05-04 17:14 | CP.PCM.PN ---
Subjective - Date & Time of Evaluation Date of Evaluation: 05/04/17 Time of Evaluation: 13:30 - Subjective Subjective: F/U Respiratory Failure. Awake, eating with the help of at bedside , follows commands , able to talk, intermitlently lethargic Objective - Vital Signs/Intake and Output Vital Signs (last 24 hours): Temp Pulse Resp BP Pulse Ox 97.9 F 72 22 165/92 H 98 05/04/17 12:00 05/04/17 17:00 05/04/17 17:00 05/04/17 17:00 05/04/17 17:00 Intake and Output: 05/04/17 05/04/17 06:59 18:59 Intake Total 50 330 Output Total 850 1500 Balance -800 -1170 - Medications Medications: Current Medications Albumin Human (Albumin Human 5% (12.5 Gm/250 Ml)) 12.5 gm IV Q10H [facility] Stop: 05/05/17 00:01 Last Admin: 05/04/17 15:22 Dose: 12.5 gm Albuterol/Ipratropium (Duoneb 3 Mg/0.5 Mg (3 Ml) Ud) 3 ml INH RQID [facility] Last Admin: 05/04/17 15:30 Dose: 3 ml Collagenase (Santyl) 1 applic TOP DAILY [facility] Last Admin: 05/04/17 08:44 Dose: 1 appl Docusate Sodium (Colace Liquid) 200 mg PO DAILY [facility] Last Admin: 05/04/17 09:37 Dose: 200 mg Famotidine (Pepcid) 20 mg GT BID [facility] Last Admin: 05/04/17 17:03 Dose: 20 mg Furosemide (Lasix) 20 mg IVP Q12H [facility] Last Admin: 05/04/17 14:18 Dose: 20 mg Lamotrigine (Lamictal) 25 mg PO BID [facility] Last Admin: 05/04/17 17:03 Dose: 25 mg Metoprolol Tartrate (Lopressor) 25 mg PO Q12 [facility] - Labs Labs: 05/03/17 04:30 05/03/17 04:30 PT 27.8 Seconds (9.8-13.1) H D 05/04/17 05:30 INR 2.4 (0.9-1.2) H D 05/04/17 05:30 APTT 26.3 Seconds (25.6-37.1) D 04/25/17 04:30 - Constitutional Appears: No Acute Distress, Chronically Ill - Head Exam Head Exam: NORMAL INSPECTION - Eye Exam Eye Exam: PERRL - ENT Exam ENT Exam: Normal Oropharynx Additional comments: Tape nasal bridge - Neck Exam Neck Exam: Normal Inspection - Respiratory Exam Respiratory Exam: Decreased Breath Sounds (at bases) - Cardiovascular Exam Cardiovascular Exam: Irregular Rhythm - GI/Abdominal Exam GI & Abdominal Exam: Soft, Normal Bowel Sounds - Extremities Exam Additional comments: Edema U/E, L/E - Back Exam Additional comments: Sacral ulcer DTI - Neurological Exam Neurological Exam: Awake Additional comments: Able to talk, follows commands, no focal motor sensory deficit, generalized weakness. - Psychiatric Exam Psychiatric exam: Normal Mood - Skin Skin Exam: Warm Assessment and Plan (1) Acute respiratory failure Status: Acute (2) Acute on chronic diastolic (congestive) heart failure Status: Acute (3) Pleural effusion Status: Acute (4) S/P thoracentesis Status: Acute (5) CANDELARIA (acute kidney injury) Status: Resolved (6) HTN (hypertension) Status: Chronic (7) A-fib Status: Chronic (8) Sleep apnea Status: Chronic (9) Lung nodule Status: Acute - Assessment and Plan (Free Text) Plan: AFib heart rate stable on Lopressor 25mg BID to hold with HR < 60 or pause > 1.5 , good diuresis with Furosemide an Albumin , back on BIPAP , on NC for meals , ABG PCO2 retention and Hypoxemia , clinical condition discussed with Patient's . ICU Time: 40 min.
[2017-05-05] MEDS: Albumin Human 5% (12.5 gm/250 ml) IV SCH (00:48)
[2017-05-05] MEDS: Albuterol-Ipratrop 3 mg / 0.5 (3 ml) UD INH SCH ×4 (07:48→19:40)
[2017-05-05] MEDS: Santyl Collagenase OINTMENT TOP SCH (08:45)
[2017-05-05 09:35] LABS: ABG ALLEN TEST YES; ARTERIAL BLOOD GAS HCO3 30.7 mmol/L (21-28); ARTERIAL BLOOD GAS O2 CAPACITY 15.1 mL/dL (16-24); ARTERIAL BLOOD GAS O2 CONTENT 14.9 ML/dL (15-23); ARTERIAL BLOOD GAS PH 7.44 (7.35-7.45); ARTERIAL BLOOD GAS PO2 90 mm/Hg (80-100); ARTERIAL BLOOD HGB O2 SAT 96.4 % (95.0-98.0); CARBOXYHEMOGLOBIN 1.2 % (0.5-1.5); HHB 1.5 % (0.0-5.0); METHEMOGLOBIN 0.8 % (0.0-3.0)
--- NOTE | 2017-05-05 12:04 | CP.CCUPN ---
CCU Subjective - Physician Review Events Since Last Encounter (Free Text): 05/05/17 11:59 Patient is alert but still lethargic. CCU Objective - Vital Signs / Intake & Output Vital Signs (Last 4 hours): Vital Signs Temp Pulse Resp BP Pulse Ox 05/05/17 11:16 56 L 05/05/17 09:45 80 05/05/17 08:26 73 155/93 H 05/05/17 08:00 97.4 F L 65 16 158/91 H 100 Intake and Output (Last 8hrs): Intake & Output 05/04/17 05/05/17 05/05/17 22:59 06:59 14:59 Intake Total 325 152 120 Output Total 1350 2000 Balance -5579 -0801 120 Intake: IV 100 Intake, Piggyback 75 150 Oral 150 120 Other 2 Output: Urine 1300 2000 Urethral (Ko) 1300 2000 Stool 50 Other: # Bowel Movements 1 - Physical Exam Physical Exam Limitations: Positive for: Altered Mental Status Head: Positive for: Normocephalic Pupils: Positive for: PERRL Conjunctiva: Positive for: Normal Mouth: Positive for: Moist Mucous Membranes Nose (External): Positive for: Atraumatic Nose (Internal): Positive for: Normal Inspection Neck: Positive for: Normal Range of Motion. Negative for: JVD Respiratory/Chest: Positive for: Decreased Breath Sounds, Rhonchi Cardiovascular: Positive for: Irregular Rhythm. Negative for: Murmurs Abdomen: Positive for: Normal Bowel Sounds Upper Extremity: Positive for: Edema, Neurovascularly Intact Lower Extremity: Positive for: Edema, NORMAL PULSES. Negative for: CALF TENDERNESS Neurological: Positive for: Other (on ventilator, opens eyes to verbal stimuli) Skin: Positive for: Warm, Other (Unstageable sacral ulcer). Negative for: Rashes Psychiatric: Positive for: Alert, Oriented x 3 - Medications Active Medications: Active Medications Generic Name Dose Route Start Last Admin Trade Name Freq PRN Reason Stop Dose Admin Albuterol/Ipratropium 3 ml 04/22/17 16:00 05/05/17 11:15 Duoneb 3 Mg/0.5 Mg (3 Ml) Ud INH 3 ml RQID YUKI Administration Collagenase 1 applic 05/02/17 16:00 05/04/17 08:44 Santyl TOP 1 appl DAILY YUKI Administration Docusate Sodium 200 mg 05/04/17 09:00 05/05/17 08:26 Colace Liquid PO 200 mg DAILY [facility]UKI Administration Famotidine 20 mg 04/18/17 17:00 05/05/17 08:27 Pepcid GT 20 mg BID [facility]I Administration Furosemide 20 mg 05/04/17 13:57 05/05/17 01:01 Lasix IVP 20 mg Q12H [facility] Administration Lamotrigine 25 mg 04/15/17 17:00 05/05/17 08:26 Lamictal PO 25 mg BID [facility]I Administration Metoprolol Tartrate 25 mg 05/04/17 11:17 05/05/17 08:26 Lopressor PO 25 mg Q12 [facility] Administration - Patient Studies Lab Studies: Lab Studies 05/05/17 05/05/17 Range/Units 09:24 05:30 PT 18.9 H D (9.8-13.1) Seconds INR 1.7 H D (0.9-1.2) pCO2 48 H (35-45) mm/Hg pO2 90 (80-100) mm/Hg HCO3 30.7 H (21-28) mmol/L ABG pH 7.44 (7.35-7.45) ABG Total CO2 34.1 H (22-28) mmol/L ABG O2 Saturation 98.5 H (95-98) % ABG O2 Content 14.9 L (15-23) ML/dL ABG Base Excess 7.4 H (-2.0-3.0) mmol/L ABG Hemoglobin 10.9 L (11.7-17.4) g/dL ABG Carboxyhemoglobin 1.2 (0.5-1.5) % POC ABG HHb (Measured) 1.5 (0.0-5.0) % ABG Methemoglobin 0.8 (0.0-3.0) % ABG O2 Capacity 15.1 L (16-24) mL/dL Broderick Test Yes A-a O2 Difference 207.0 mm/Hg Hgb O2 Saturation 96.4 (95.0-98.0) % FiO2 50.0 % Blood Gas Comments Hig flw 20l/m.50% Crit Value Read Back N Laboratory Results - last 24 hr 05/05/17 05/05/17 05:30 09:24 PT 18.9 H D INR 1.7 H D pCO2 48 H pO2 90 HCO3 30.7 H ABG pH 7.44 ABG Total CO2 34.1 H ABG O2 Saturation 98.5 H ABG O2 Content 14.9 L ABG Base Excess 7.4 H ABG Hemoglobin 10.9 L ABG Carboxyhemoglobin 1.2 POC ABG HHb (Measured) 1.5 ABG Methemoglobin 0.8 ABG O2 Capacity 15.1 L Broderick Test Yes A-a O2 Difference 207.0 Hgb O2 Saturation 96.4 FiO2 50.0 Blood Gas Comments Hig flw 20l/m.50% Crit Value Read Back N Fingerstick Blood Sugar Results: 202 Review of Systems - Review of Systems Systems not reviewed;Unavailable: Altered Mental Status Critical Care Progress Note - Nutrition Nutrition: Nutrition Category Date Time Status Dysphagia/Modified Consistency Diet [DIET] Diets 05/03/17 Dinner Active Assessment/Plan (1) Acute respiratory failure Assessment and plan: 76yo M. PMHx Afib on Coumadin, CAD, CVA, chronic CHF, HTN, SUSAN, BPH, PNA. p/w acute respiratory failure requiring intubation (04/15). Self-Extubated (o04/21) . Thoracentesis (04/17, 04/22, 04/24). Neuro: lethargic at times from hypercarbia and hypoxia. Patient needs aggressive physical therapy, would benefit from transfer to rehab. Pulm: Patient has hypercarbic and hypoxic respiratory failure requiring intermittent BIPAP and BIPAP at night. patient is severely deconditioned. Duonebs qid. pulmonary edema from acute on chronic CHF, starting diuresis with lasix q12h. CV: hemodynamically stable. low dose lopressor for rate control of pAFib. previous echo was of poor quality, will repeat. Currently patient has Heart failure with preserved EF, based on last echo. Hem: anemia of chronic disease. Warfarin for stroke prophylaxis with Afib. Renal: acute kidney injury improved, urine output wnl. Endo: no acute issues GI: dysphagia diet, puree with honey thick liquids. ID: no acute issues DVT proph - warfarin GI proph - pepcid ko for strict I/O's during acute illness Code status - full code Critical Care Time spent 35 minutes The documented time is cumulative and includes review of patient data/exams/labs /chart review and examination of the patient on rounds and throughout the day; time is exclusive of any procedures or teaching time. Current Visit: Yes Status: Acute Priority: High
--- NOTE | 2017-05-05 14:04 | RAD ---
HISTORY: effusions COMPARISON: No prior. FINDINGS: LUNGS: Mild pulmonary vascular congestive changes with bilateral effusions at and suspected bilateral atelectatic and or infiltrate changes. In situ right-sided PICC line unchanged. Note that the lung apices are partially obscured by apparent overlying oxygen mask. PLEURA: As above. No pneumothorax apparent. CARDIOVASCULAR: Heart size difficult to assess due to partial silhouetting however heart appears borderline/ mildly enlarged on this study. OSSEOUS STRUCTURES: No significant abnormalities. VISUALIZED UPPER ABDOMEN: Normal. OTHER FINDINGS: None. IMPRESSION: Mild pulmonary vascular congestive changes with bilateral effusions at and suspected bilateral atelectatic and or infiltrate changes. In situ right-sided PICC line unchanged.
--- NOTE | 2017-05-05 19:44 | CP.PCM.PN ---
Subjective - Date & Time of Evaluation Date of Evaluation: 05/05/17 Time of Evaluation: 12:30 - Subjective Subjective: F/U Respiratory Failure. Patient is awake , able to talk with her son by phone ,followws commands , able to lift lower extremities straight against gravity , on BIPAP , high flow O2 for meals Objective - Vital Signs/Intake and Output Vital Signs (last 24 hours): Temp Pulse Resp BP Pulse Ox 97.8 F 83 23 169/104 H 100 05/05/17 16:00 05/05/17 18:00 05/05/17 19:41 05/05/17 18:00 05/05/17 18:00 Intake and Output: 05/05/17 05/06/17 18:59 06:59 Intake Total 850 Output Total 1700 Balance -850 - Medications Medications: Current Medications Albuterol/Ipratropium (Duoneb 3 Mg/0.5 Mg (3 Ml) Ud) 3 ml INH RQID [facility] Last Admin: 05/05/17 19:40 Dose: 3 ml Collagenase (Santyl) 1 applic TOP DAILY [facility] Last Admin: 05/05/17 08:45 Dose: 1 appl Docusate Sodium (Colace Liquid) 200 mg PO DAILY [facility] Last Admin: 05/05/17 08:26 Dose: 200 mg Famotidine (Pepcid) 20 mg GT BID [facility] Last Admin: 05/05/17 17:43 Dose: 20 mg Furosemide (Lasix) 20 mg IVP Q12H [facility] Last Admin: 05/05/17 13:56 Dose: 20 mg Lamotrigine (Lamictal) 25 mg PO BID [facility] Last Admin: 05/05/17 17:43 Dose: 25 mg Metoprolol Tartrate (Lopressor) 25 mg PO Q12 [facility] Last Admin: 05/05/17 08:26 Dose: 25 mg - Labs Labs: 05/03/17 04:30 05/03/17 04:30 PT 18.9 Seconds (9.8-13.1) H D 05/05/17 05:30 INR 1.7 (0.9-1.2) H D 05/05/17 05:30 APTT 26.3 Seconds (25.6-37.1) D 04/25/17 04:30 - Constitutional Appears: No Acute Distress, Chronically Ill - Head Exam Head Exam: NORMAL INSPECTION - Eye Exam Eye Exam: PERRL - ENT Exam ENT Exam: Normal Oropharynx - Neck Exam Neck Exam: Normal Inspection - Respiratory Exam Respiratory Exam: Decreased Breath Sounds (at bases) - Cardiovascular Exam Cardiovascular Exam: Irregular Rhythm - GI/Abdominal Exam GI & Abdominal Exam: Soft, Normal Bowel Sounds - Extremities Exam Additional comments: decreased edema U/E, L/E - Back Exam Additional comments: Sacral ulcer DTI - Neurological Exam Neurological Exam: Awake Additional comments: Able to talk, follows commands, no focal motor sensory deficit , able to lift lower extremities straight against gravity , generalized weakness. - Psychiatric Exam Psychiatric exam: Normal Mood - Skin Skin Exam: Warm Assessment and Plan (1) Acute respiratory failure Status: Acute (2) Acute on chronic diastolic (congestive) heart failure Status: Acute (3) Pleural effusion Status: Acute (4) S/P thoracentesis Status: Acute (5) CANDLEARIA (acute kidney injury) Status: Resolved (6) HTN (hypertension) Status: Chronic (7) A-fib Status: Chronic (8) Sleep apnea Status: Chronic (9) Lung nodule Status: Acute - Assessment and Plan (Free Text) Plan: on BIPAP 24hs , due to letharginess due to increased PCO2 , on High flow O2 for meals , CXR B/L effusions , congestive changes , on Lopressor 25 mg BID for Heart rate control, monitor for Heart rate less than 60/m or pauses > 1.5 to hold Lopressor , continue rest of treatment ICU Time: 39 min.
--- NOTE | 2017-05-06 07:15 | CP.CCUPN ---
CCU Subjective - Physician Review Events Since Last Encounter (Free Text): 05/06/17 The Patient was seen and examined at the bedside with the ICU team. Management issues were discussed and formulated. Acute respiratory failure self extubated, remains in ICU to monitor respiratory status closely Large B/L effusion S/p B/L thoracocentesis, CXR showing re accumulating pleural effusion More awake, and interactive today Comfortable, NAD On/Off BIPAP dependent, Saturating well on HF nasal cannula 50% Tolerating PO diet, honey thickened puree diet, good appetite CXR done, improved lung aerations AFebrile A-Fib, HR/BP controlled, off BB/Dig/CCB Patient stable for transfer to telemetry Completed course of Antibiotics with Zosyn Scheduled for thoracentesis today CCU Objective - Vital Signs / Intake & Output Vital Signs (Last 4 hours): Vital Signs Temp Pulse Resp BP Pulse Ox 05/06/17 06:00 84 19 164/74 H 99 05/06/17 05:19 90 05/06/17 04:00 97.6 F 81 19 159/85 H 100 Intake and Output (Last 8hrs): Intake & Output 05/05/17 05/06/17 05/06/17 22:59 06:59 14:59 Intake Total 650 2 Output Total 1700 1650 Balance -1050 -1648 Weight 163 lb 12.8 oz Intake: IV 2 Intake, Piggyback 250 Oral 400 Output: Urine 1700 1650 Urethral (Wang) 1700 1650 Other: # Bowel Movements 1 - Physical Exam Head: Positive for: Normocephalic Pupils: Positive for: PERRL Conjunctiva: Positive for: Normal Mouth: Positive for: Moist Mucous Membranes Nose (External): Positive for: Atraumatic Nose (Internal): Positive for: Normal Inspection Neck: Positive for: Normal Range of Motion. Negative for: JVD Respiratory/Chest: Positive for: Decreased Breath Sounds, Rhonchi Cardiovascular: Positive for: Irregular Rhythm. Negative for: Murmurs Abdomen: Positive for: Normal Bowel Sounds Upper Extremity: Positive for: Edema, Neurovascularly Intact Lower Extremity: Positive for: Edema, NORMAL PULSES. Negative for: CALF TENDERNESS Neurological: Positive for: Other (on ventilator, opens eyes to verbal stimuli) Skin: Positive for: Warm, Other (Unstageable sacral ulcer). Negative for: Rashes Psychiatric: Positive for: Alert, Oriented x 3 - Medications Active Medications: Active Medications Generic Name Dose Route Start Last Admin Trade Name Stephan PRN Reason Stop Dose Admin Albuterol/Ipratropium 3 ml 04/22/17 16:00 05/05/17 19:40 Duoneb 3 Mg/0.5 Mg (3 Ml) Ud INH 3 ml RQID [facility] Administration Collagenase 1 applic 05/02/17 16:00 05/05/17 08:45 Santyl TOP 1 appl DAILY [facility] Administration Docusate Sodium 200 mg 05/04/17 09:00 05/05/17 08:26 Colace Liquid PO 200 mg DAILY [facility] Administration Famotidine 20 mg 04/18/17 17:00 05/05/17 17:43 Pepcid GT 20 mg BID [facility] Administration Furosemide 20 mg 05/04/17 13:57 05/06/17 01:23 Lasix IVP 20 mg Q12H [facility] Administration Lamotrigine 25 mg 04/15/17 17:00 05/05/17 17:43 Lamictal PO 25 mg BID [facility] Administration Metoprolol Tartrate 25 mg 05/04/17 11:17 05/05/17 21:13 Lopressor PO Not Given Q12 [facility] - Patient Studies Lab Studies: Lab Studies 05/06/17 05/05/17 05/05/17 Range/Units 04:10 09:24 05:30 PT 17.2 H 18.9 H D (9.8-13.1) Seconds INR 1.5 H 1.7 H D (0.9-1.2) pCO2 48 H (35-45) mm/Hg pO2 90 (80-100) mm/Hg HCO3 30.7 H (21-28) mmol/L ABG pH 7.44 (7.35-7.45) ABG Total CO2 34.1 H (22-28) mmol/L ABG O2 Saturation 98.5 H (95-98) % ABG O2 Content 14.9 L (15-23) ML/dL ABG Base Excess 7.4 H (-2.0-3.0) mmol/L ABG Hemoglobin 10.9 L (11.7-17.4) g/dL ABG Carboxyhemoglobin 1.2 (0.5-1.5) % POC ABG HHb (Measured) 1.5 (0.0-5.0) % ABG Methemoglobin 0.8 (0.0-3.0) % ABG O2 Capacity 15.1 L (16-24) mL/dL Broderick Test Yes A-a O2 Difference 207.0 mm/Hg Hgb O2 Saturation 96.4 (95.0-98.0) % FiO2 50.0 % Blood Gas Comments Hig flw 20l/m.50% Crit Value Read Back N Laboratory Results - last 24 hr 05/05/17 05/05/17 05/06/17 05:30 09:24 04:10 PT 18.9 H D 17.2 H INR 1.7 H D 1.5 H pCO2 48 H pO2 90 HCO3 30.7 H ABG pH 7.44 ABG Total CO2 34.1 H ABG O2 Saturation 98.5 H ABG O2 Content 14.9 L ABG Base Excess 7.4 H ABG Hemoglobin 10.9 L ABG Carboxyhemoglobin 1.2 POC ABG HHb (Measured) 1.5 ABG Methemoglobin 0.8 ABG O2 Capacity 15.1 L Broderick Test Yes A-a O2 Difference 207.0 Hgb O2 Saturation 96.4 FiO2 50.0 Blood Gas Comments Hig flw 20l/m.50% Crit Value Read Back N Fingerstick Blood Sugar Results: 202 Critical Care Progress Note - Nutrition Nutrition: Nutrition Category Date Time Status Dysphagia/Modified Consistency Diet [DIET] Diets 05/03/17 Dinner Active Assessment/Plan (1) CANDELARIA (acute kidney injury) Current Visit: Yes Status: Resolved Priority: High (2) Acute decompensated heart failure Current Visit: Yes Status: Acute (3) Acute on chronic diastolic (congestive) heart failure Current Visit: Yes Status: Acute Priority: High (4) Acute respiratory failure Current Visit: Yes Status: Acute Priority: High (5) Aspiration pneumonia Current Visit: Yes Status: Acute (6) Pleural effusion Current Visit: Yes Status: Acute - Assessment and Plan (Free Text) Assessment: - Continue current medications, reviewed - Wean off Fios - IV dieresis, Lasix 20 mg IVP DAILY - Strict I&O - HR control, Continue anticoagulations - Completed course of IV Antibiotics with Piperacillin Sod/Tazobactam - Pulmonary toilets - Albuterol/Ipratropium INH RQID - Follow CXR, ABG, labs in AM - AGREESSIVE PULMONARY TIOLET, CHEST PT, SUCTIONING - Wound care for Unstageable sacral ulcer - DVT / GI prophylaxis: Pepcid, Coumadin - Scheduled for thoracentesis today - Full Code
[2017-05-06] MEDS: Albuterol-Ipratrop 3 mg / 0.5 (3 ml) UD INH SCH (07:48)
[2017-05-06] MEDS ORDERED: Chlorhexidine Gluconate 1 APPL/PKT TP ONE (07:49)
--- NOTE | 2017-05-06 08:03 | CP.PCM.PN ---
Subjective - Date & Time of Evaluation Date of Evaluation: 05/06/17 Time of Evaluation: 07:40 - Subjective Subjective: Has fluctuating level of conciousness On BiPAP machine with Pulse Ox 100% ABGs show persistent elevated Co2 levels with normal pH A Fib at 70-90 BPM (Had long pauses during night, >2 sec) Last dose of [id number] mg was given at 9AM yesterday Will D/C it BP 134/70 mm Hg INR subtherapeutic , have ordered Warfarin Pt has spent few Hrs a day in chair last couple of days Objective - Vital Signs/Intake and Output Vital Signs (last 24 hours): Temp Pulse Resp BP Pulse Ox 97.6 F 84 19 164/74 H 99 05/06/17 04:00 05/06/17 06:00 05/06/17 06:00 05/06/17 06:00 05/06/17 06:00 Intake and Output: 05/06/17 05/06/17 06:59 18:59 Intake Total 122 Output Total 1650 Balance -1528 - Medications Medications: Current Medications Albuterol/Ipratropium (Duoneb 3 Mg/0.5 Mg (3 Ml) Ud) 3 ml INH RQID [facility] Last Admin: 05/06/17 07:48 Dose: 3 ml Collagenase (Santyl) 1 applic TOP DAILY [facility] Last Admin: 05/05/17 08:45 Dose: 1 appl Docusate Sodium (Colace Liquid) 200 mg PO DAILY [facility] Last Admin: 05/05/17 08:26 Dose: 200 mg Famotidine (Pepcid) 20 mg GT BID [facility] Last Admin: 05/05/17 17:43 Dose: 20 mg Furosemide (Lasix) 20 mg IVP Q12H [facility] Last Admin: 05/06/17 01:23 Dose: 20 mg Lamotrigine (Lamictal) 25 mg PO BID [facility] Last Admin: 05/05/17 17:43 Dose: 25 mg Warfarin Sodium (Coumadin) 7.5 mg PO QD5 [facility] PRN Reason: Protocol Stop: 05/06/17 17:01 - Labs Labs: 05/03/17 04:30 05/03/17 04:30 PT 17.2 Seconds (9.8-13.1) H 05/06/17 04:10 INR 1.5 (0.9-1.2) H 05/06/17 04:10 APTT 26.3 Seconds (25.6-37.1) D 04/25/17 04:30
[2017-05-06] MEDS: Santyl Collagenase OINTMENT TOP SCH (10:00)
--- NOTE | 2017-05-06 10:21 | RAD ---
HISTORY: Pleural effusion COMPARISON: Chest x-ray performed 05/05/17 TECHNIQUE: Chest, one view. FINDINGS: The patient's chin obscures evaluation of the lung apices. Examination limited by habitus and hypoinflation. LUNGS: Layering bilateral pleural effusions and associated consolidations. No definite pneumothorax. Please note that chest x-ray has limited sensitivity for the detection of pulmonary masses. CARDIOVASCULAR: Partially obscured cardiomegaly. OSSEOUS STRUCTURES: Degenerative changes. VISUALIZED UPPER ABDOMEN: Unremarkable. OTHER FINDINGS: Right-sided PICC extends to the expected location of the SVC. IMPRESSION: Right-sided PICC extends expected location of the SVC. Moderate bilateral layering pleural effusions and associated consolidations. No definite pneumothorax. Partially obscured cardiomegaly.
--- NOTE | 2017-05-06 11:05 | CP.PCM.PN ---
Subjective - Date & Time of Evaluation Date of Evaluation: 05/06/17 Time of Evaluation: 11:04 - Subjective Subjective: No changes clinically No new events reported overnight Serum creatinine came down slightly Patient was given couple doses of albumin Patient may need more We will check BMP for tomorrow and make a decision Objective - Vital Signs/Intake and Output Vital Signs (last 24 hours): Temp Pulse Resp BP Pulse Ox 97.7 F 90 18 143/89 100 05/06/17 08:00 05/06/17 09:00 05/06/17 09:00 05/06/17 09:00 05/06/17 09:00 Intake and Output: 05/06/17 05/06/17 06:59 18:59 Intake Total 122 236 Output Total 1650 100 Balance -1528 136 - Medications Medications: Current Medications Collagenase (Santyl) 1 applic TOP DAILY [facility] Last Admin: 05/05/17 08:45 Dose: 1 appl Docusate Sodium (Colace Liquid) 200 mg PO DAILY [facility] Last Admin: 05/06/17 08:34 Dose: 200 mg Famotidine (Pepcid) 20 mg GT BID [facility] Last Admin: 05/06/17 08:27 Dose: 20 mg Furosemide (Lasix) 20 mg IVP Q12H [facility] Last Admin: 05/06/17 01:23 Dose: 20 mg Lamotrigine (Lamictal) 25 mg PO BID [facility] Last Admin: 05/06/17 08:27 Dose: 25 mg Warfarin Sodium (Coumadin) 7.5 mg PO QD5 [facility] PRN Reason: Protocol Stop: 05/06/17 17:01 - Labs Labs: 05/03/17 04:30 05/03/17 04:30 PT 17.2 Seconds (9.8-13.1) H 05/06/17 04:10 INR 1.5 (0.9-1.2) H 05/06/17 04:10 APTT 26.3 Seconds (25.6-37.1) D 04/25/17 04:30 Assessment and Plan (1) CANDELARIA (acute kidney injury) Status: Resolved (2) Acute respiratory failure Status: Acute
[2017-05-06] MEDS ORDERED: Lidocaine 1% Inj (20ml) ONE (15:03)
--- NOTE | 2017-05-06 15:38 | PCM.SURG1 ---
Surgeon's Initial Post Op Note - Surgeon's Notes Surgeon: Clifford Friedman MD Tower Dragline Operator: NONE Type of Anesthesia: Local Pre-Operative Diagnosis: Pleural effusion Operative Findings: US showed a large left effusion Post-Operative Diagnosis: Pleural effusion Operation Performed: US guided left thoracentesis. Specimen/Specimens Removed: 1200 cc of straw colored fluid Estimated Blood Loss: EBL {In ML}: 0 Blood Products Given: N/A Drains Used: No Drains Post-Op Condition: Fair Date of Surgery/Procedure: 05/06/17 Time of Surgery/Procedure: 15:35
--- NOTE | 2017-05-06 17:22 | CP.PCM.PN ---
Subjective - Date & Time of Evaluation Date of Evaluation: 05/06/17 Time of Evaluation: 12:40 - Subjective Subjective: F/U Respiratory Failure. Pt is awake, able to talk, sitting in a chair, follows commands, expontaneously has full extension of legs, smiling at time with high flow O2. Objective - Vital Signs/Intake and Output Vital Signs (last 24 hours): Temp Pulse Resp BP Pulse Ox 97.5 F L 94 H 23 134/79 100 05/06/17 16:00 05/06/17 16:00 05/06/17 17:14 05/06/17 16:00 05/06/17 16:00 Intake and Output: 05/06/17 05/06/17 06:59 18:59 Intake Total 122 636 Output Total 1650 100 Balance -1528 536 - Medications Medications: Current Medications Collagenase (Santyl) 1 applic TOP DAILY [facility] Last Admin: 05/06/17 10:00 Dose: 1 appl Docusate Sodium (Colace Liquid) 200 mg PO DAILY [facility] Last Admin: 05/06/17 08:34 Dose: 200 mg Famotidine (Pepcid) 20 mg GT BID [facility] Last Admin: 05/06/17 17:03 Dose: 20 mg Furosemide (Lasix) 20 mg IVP Q12H [facility] Last Admin: 05/06/17 14:00 Dose: 20 mg Lamotrigine (Lamictal) 25 mg PO BID [facility] Last Admin: 05/06/17 17:03 Dose: 25 mg - Labs Labs: 05/03/17 04:30 05/03/17 04:30 PT 17.2 Seconds (9.8-13.1) H 05/06/17 04:10 INR 1.5 (0.9-1.2) H 05/06/17 04:10 APTT 26.3 Seconds (25.6-37.1) D 04/25/17 04:30 - Constitutional Appears: No Acute Distress, Chronically Ill - Head Exam Head Exam: NORMAL INSPECTION - Eye Exam Eye Exam: Normal appearance - ENT Exam ENT Exam: Mucous Membranes Moist - Neck Exam Neck Exam: Normal Inspection - Respiratory Exam Respiratory Exam: Decreased Breath Sounds (at bases) - Cardiovascular Exam Cardiovascular Exam: Irregular Rhythm - GI/Abdominal Exam GI & Abdominal Exam: Soft, Normal Bowel Sounds - Extremities Exam Additional comments: Edema U/E, no edema L/E - Back Exam Additional comments: Scral ulcer DTI - Neurological Exam Neurological Exam: Awake Additional comments: Able to talk, follows commands, no focal motor sensory deficit, generalized weakness. Assessment and Plan (1) Acute respiratory failure Status: Acute (2) Acute on chronic diastolic (congestive) heart failure Status: Acute (3) Pleural effusion Status: Acute (4) S/P thoracentesis Status: Acute (5) CANDELARIA (acute kidney injury) Status: Resolved (6) HTN (hypertension) Status: Chronic (7) A-fib Status: Chronic (8) Sleep apnea Status: Chronic (9) Lung nodule Status: Acute - Assessment and Plan (Free Text) Plan: Pt yesterday having pauses, at time bradycardia, Lopressor DC today, yesterday on BIPAP overnight and day time, on trial of high flow O2 today. CXR: Moderate b /l layering pleural effusion and associated consolidation, discussed with residential service technician f/u with IR for Thoracentesis, also Echo was not done due to wind after Thoracentesis maybe has Echo, continue rest of Tx, PT. ICU Time: 37 min.
--- NOTE | 2017-05-06 19:19 | CARD ---
APPROVED REPORT EKG Measurement Heart [id number] <Conclusion> Atrial fibrillation Left axis deviation Right bundle branch block T wave abnormality, consider lateral ischemia Abnormal ECG
[2017-05-07 05:10] LABS: HEMATOCRIT 34.2 % (35.0-51.0); MEAN CELL VOLUME 92.6 fl (80.0-94.0); MEAN CORPUSCULAR HEMOGLOBIN 30.6 pg (27.0-31.0); RED CELL DISTRIBUTION WIDTH 16.4 % (11.5-14.5); WHITE BLOOD COUNT 4.9 K/uL (4.8-10.8)
[2017-05-07 05:27] LABS: ALKALINE PHOSPHATASE 95 U/L (38-126); ALT/SGPT 38 U/L (21-72); AST/SGOT 29 U/L (17-59); BILIRUBIN,TOTAL 1.3 mg/dl (0.2-1.3); BLOOD UREA NITROGEN 26 mg/dl (9-20); CALCIUM 8.8 mg/dL (8.4-10.2); CARBON DIOXIDE 34 mmol/L (22-30); CHLORIDE 96 mmol/L (98-107); GFR AFRICAN-AMERICAN > 60; GLUCOSE,RANDOM 100 mg/dL (75-110); POTASSIUM 3.5 MMOL/L (3.6-5.0); SODIUM 137 mmol/l (132-148); TOTAL PROTEIN 6.3 G/DL (6.3-8.2)
--- NOTE | 2017-05-07 08:06 | CP.CCUPN ---
CCU Subjective - Physician Review Events Since Last Encounter (Free Text): 05/07/17 11:45 The Patient was seen and examined at the bedside with the ICU team. Management issues were discussed and formulated. Acute respiratory failure, self extubated, remains in ICU to monitor respiratory status closely Large B/L effusion S/p B/L thoracocentesis, 05/06, CXR showing re accumulating pleural effusion Underwent repeat thoracentesis yesterday with 1200cc drained More awake, and interactive today Comfortable, NAD On/Off BIPAP, Saturating high 90s on HF nasal cannula 50%, will decrease to 40% Sleep Apnea on nocturnal BIPAP Tolerating PO diet, honey thickened puree diet, good appetite CXR today, improved lung aerations specially on Left AFebrile Acute kidney injury, improved renal function BUN/CR continue trending down to 26 /1.3 today A-Fib, HR/BP controlled, off BB/Dig/CCB Also on Aticoagulation with coumadin On Lamotrigine (Lamictal) 25 mg PO BID (for Seizure disorder as per ) Completed course of Antibiotics with Zosyn Patient stable for transfer to telemetry CCU Objective - Vital Signs / Intake & Output Vital Signs (Last 4 hours): Vital Signs Pulse 05/07/17 06:20 101 H Intake and Output (Last 8hrs): Intake & Output 05/06/17 05/07/17 05/07/17 22:59 06:59 14:59 Intake Total 300 0 Output Total 2500 750 Balance -2200 -750 Intake: IV 0 0 Oral 300 Output: Chest Tube Drainage 1200 Left Mid-Axillary Chest 1200 Urine 1300 750 Urethral (Wang) 1300 750 - Physical Exam Physical Exam Limitations: Positive for: Clinical Condition Head: Positive for: Normocephalic Pupils: Positive for: PERRL Extroacular Muscles: Positive for: EOMI Conjunctiva: Positive for: Normal Ears: Positive for: Normal Mouth: Positive for: Moist Mucous Membranes Nose (External): Positive for: Atraumatic. Negative for: Abrasion Nose (Internal): Positive for: Normal Inspection Neck: Positive for: Normal Range of Motion. Negative for: JVD Respiratory/Chest: Positive for: Decreased Breath Sounds, Rhonchi. Negative for : Wheezes Cardiovascular: Positive for: Irregular Rhythm. Negative for: Murmurs Abdomen: Positive for: Normal Bowel Sounds. Negative for: Tenderness, Distention Upper Extremity: Positive for: Edema, Neurovascularly Intact, Other (Left arm PICC line, site clean, intact) Lower Extremity: Positive for: Edema, NORMAL PULSES. Negative for: CALF TENDERNESS Neurological: Positive for: Other (on ventilator, opens eyes to verbal stimuli) Skin: Positive for: Warm, Other (Unstageable sacral ulcer). Negative for: Rashes Psychiatric: Positive for: Alert, Oriented x 3 - Medications Active Medications: Active Medications Generic Name Dose Route Start Last Admin Trade Name Freq PRN Reason Stop Dose Admin Collagenase 1 applic 05/02/17 16:00 05/06/17 10:00 Santyl TOP 1 appl DAILY [facility] Administration Docusate Sodium 200 mg 05/04/17 09:00 05/06/17 08:34 Colace Liquid PO 200 mg DAILY [facility] Administration Famotidine 20 mg 04/18/17 17:00 05/06/17 17:03 Pepcid GT 20 mg BID [facility] Administration Furosemide 20 mg 05/04/17 13:57 05/07/17 02:05 Lasix IVP 20 mg Q12H [facility] Administration Lamotrigine 25 mg 04/15/17 17:00 05/06/17 17:03 Lamictal PO 25 mg BID [facility] Administration - Patient Studies Lab Studies: Lab Studies 05/07/17 05/07/17 05/07/17 Range/Units 04:20 04:20 04:20 WBC 4.9 (4.8-10.8) K/uL RBC 3.69 L (4.40-5.90) Mil/uL Hgb 11.3 L (12.0-18.0) g/dL Hct 34.2 L (35.0-51.0) % MCV 92.6 D (80.0-94.0) fl MCH 30.6 (27.0-31.0) pg MCHC 33.0 (33.0-37.0) g/dL RDW 16.4 H (11.5-14.5) % Plt Count 190 (130-400) K/uL PT 15.3 H (9.8-13.1) Seconds INR 1.4 H (0.9-1.2) Sodium 137 (132-148) mmol/l Potassium 3.5 L (3.6-5.0) MMOL/L Chloride 96 L (98-107) mmol/L Carbon Dioxide 34 H (22-30) mmol/L Anion Gap 11 (10-20) BUN 26 H (9-20) mg/dl Creatinine 1.3 (0.8-1.5) mg/dL Est GFR ( Amer) > 60 Est GFR (Non-Af Amer) 53 Random Glucose 100 (75-110) mg/dL Calcium 8.8 (8.4-10.2) mg/dL Total Bilirubin 1.3 (0.2-1.3) mg/dl AST 29 (17-59) U/L ALT 38 (21-72) U/L Alkaline Phosphatase 95 (38-126) U/L Total Protein 6.3 (6.3-8.2) G/DL Albumin 3.2 L D (3.5-5.0) g/dL Globulin 3.1 (2.2-3.9) gm/dL Albumin/Globulin Ratio 1.0 (1.0-2.1) Laboratory Results - last 24 hr 05/07/17 05/07/17 05/07/17 04:20 04:20 04:20 WBC 4.9 RBC 3.69 L Hgb 11.3 L Hct 34.2 L MCV 92.6 D MCH 30.6 MCHC 33.0 RDW 16.4 H Plt Count 190 PT 15.3 H INR 1.4 H Sodium 137 Potassium 3.5 L Chloride 96 L Carbon Dioxide 34 H Anion Gap 11 BUN 26 H Creatinine 1.3 Est GFR ( Amer) > 60 Est GFR (Non-Af Amer) 53 Random Glucose 100 Calcium 8.8 Total Bilirubin 1.3 AST 29 ALT 38 Alkaline Phosphatase 95 Total Protein 6.3 Albumin 3.2 L D Globulin 3.1 Albumin/Globulin Ratio 1.0 Fingerstick Blood Sugar Results: 202 Review of Systems - Cardiovascular Cardiovascular: absent: Chest Pain - Respiratory Respiratory: absent: Cough, Dyspnea, Hemoptysis, Dyspnea on Exertion, Wheezing - Gastrointestinal Gastrointestinal: absent: Abdominal Pain Critical Care Progress Note - Nutrition Nutrition: Nutrition Category Date Time Status Dysphagia/Modified Consistency Diet [DIET] Diets 05/03/17 Dinner Active Assessment/Plan (1) CANDELARIA (acute kidney injury) Current Visit: Yes Status: Resolved Priority: High (2) Acute decompensated heart failure Current Visit: Yes Status: Acute (3) Acute on chronic diastolic (congestive) heart failure Current Visit: Yes Status: Acute Priority: High (4) Acute respiratory failure Current Visit: Yes Status: Acute Priority: High (5) Aspiration pneumonia Current Visit: Yes Status: Acute (6) Pleural effusion Current Visit: Yes Status: Acute - Assessment and Plan (Free Text) Assessment: - Continue current medications, reviewed - Wean off Fios, (decrease to 40%, at 20L/min) - Sleep Apnea on Nocturnal BIPAP - HR control, Continue anticoagulations (Will order 5mg coumadin today) - Underwent repeat thoracentesis yesterday with 1200cc drained - Pulmonary toilets - Albuterol/Ipratropium INH RQID - Follow CXR, ABG, labs in AM - AGREESSIVE PULMONARY TIOLET, CHEST PT, SUCTIONING - On Lamotrigine (Lamictal) 25 mg PO BID (for Seizure disorder as per ) - Completed course of IV Antibiotics with Piperacillin Sod/Tazobactam - Acute kidney injury, improved renal function BUN/CR continue trending down to 26/1.3 today - IV dieresis, Lasix 20 mg IVP Q 12H - Strict I&O - Wound care for Unstageable sacral ulcer with Colagenase daily - PT/OT - OOB to chair - DVT / GI prophylaxis: Pepcid, Coumadin - Full Code - Patient stable for transfer to telemetry
[2017-05-07] MEDS: Santyl Collagenase OINTMENT TOP SCH (08:37)
--- NOTE | 2017-05-07 12:47 | RAD ---
PROCEDURE: CHEST RADIOGRAPH, 1 VIEW HISTORY: Pleural effusion COMPARISON: Comparison made with prior study dated 05/06/2017. FINDINGS: LUNGS: Slightly improved pulmonary vascular congestion however persistent bilateral lower lobe alveolar-type infiltrates and/or bilateral eye) with mild moderate-sized bilateral effusions. . PLEURA: o No pneumothorax or pleural fluid seen. CARDIOVASCULAR: Cardiomegaly. OSSEOUS STRUCTURES: No significant abnormalities. VISUALIZED UPPER ABDOMEN: Normal. OTHER FINDINGS: No change right-sided PICC line IMPRESSION: Slightly improved pulmonary vascular congestion however persistent bilateral lower lobe alveolar-type infiltrates and/or bilateral atelectasis with mild moderate-sized bilateral effusions. Cardiomegaly.
--- NOTE | 2017-05-07 13:18 | US ---
PROCEDURE: Date of procedure: 05/06/2017 Procedure: 1. Ultrasound-guided left thoracentesis, CPT 48909 Medications: 8 cc 1% Lidocaine HISTORY: Left pleural effusion, shortness of breath TECHNIQUE: Following informed consent ,the Patients' left chest was marked. Procedure time-out was called, and the patient was placed in the sitting position and limited ultrasound showed a large left effusion. The patient's left back was prepped and draped in the usual sterile fashion. After the skin was anesthetized with lidocaine, a drainage catheter was advanced under ultrasound guidance into the pleural space. Ultrasound-guided thoracentesis was performed. A total of 1200 cubic centimeters of straw-colored fluid removed without complication. A Xeroform dressing was applied. IMPRESSION: Ultrasound guided left thoracentesis. There were no immediate complications.
--- NOTE | 2017-05-07 14:24 | CP.PCM.PN ---
Subjective - Date & Time of Evaluation Date of Evaluation: 05/07/17 Time of Evaluation: 08:30 - Subjective Subjective: F/U Respiratory Failure. seatted , awake , on high flow O2 , Patient follows commands , able to talk, Patient's at bedside Objective - Vital Signs/Intake and Output Vital Signs (last 24 hours): Temp Pulse Resp BP Pulse Ox 98.7 F 89 22 126/66 100 05/07/17 12:25 05/07/17 12:25 05/07/17 12:25 05/07/17 14:15 05/07/17 12:25 Intake and Output: 05/07/17 05/07/17 06:59 18:59 Intake Total 0 Output Total 750 Balance -750 - Medications Medications: Current Medications Collagenase (Santyl) 1 applic TOP DAILY [facility] Last Admin: 05/07/17 08:37 Dose: 1 appl Docusate Sodium (Colace Liquid) 200 mg PO DAILY [facility] Last Admin: 05/07/17 11:59 Dose: 200 mg Famotidine (Pepcid) 20 mg GT BID [facility] Last Admin: 05/07/17 08:37 Dose: 20 mg Furosemide (Lasix) 20 mg IVP Q12H [facility] Last Admin: 05/07/17 14:15 Dose: 20 mg Lamotrigine (Lamictal) 25 mg PO BID [facility] Last Admin: 05/07/17 08:37 Dose: 25 mg Warfarin Sodium (Coumadin) 7.5 mg PO QD5 [facility] PRN Reason: Protocol Stop: 05/07/17 17:01 - Labs Labs: 05/07/17 04:20 05/07/17 04:20 PT 15.3 Seconds (9.8-13.1) H 05/07/17 04:20 INR 1.4 (0.9-1.2) H 05/07/17 04:20 APTT 26.3 Seconds (25.6-37.1) D 04/25/17 04:30 - Constitutional Appears: No Acute Distress, Chronically Ill - Head Exam Head Exam: NORMAL INSPECTION - Eye Exam Eye Exam: PERRL - ENT Exam ENT Exam: Mucous Membranes Moist - Neck Exam Neck Exam: Normal Inspection - Respiratory Exam Respiratory Exam: Decreased Breath Sounds (at bases) - Cardiovascular Exam Cardiovascular Exam: Irregular Rhythm - GI/Abdominal Exam GI & Abdominal Exam: Soft, Normal Bowel Sounds - Extremities Exam Additional comments: U/E edema decreased , no edema L/E - Back Exam Back Exam: NORMAL INSPECTION Additional comments: Sacral ulcer DTI - Neurological Exam Neurological Exam: Awake Additional comments: Able to talk, follows commands, no focal motor sensory deficit, generalized weakness. - Psychiatric Exam Psychiatric exam: Normal Mood - Skin Skin Exam: Warm Assessment and Plan (1) Acute respiratory failure Status: Acute (2) Acute on chronic diastolic (congestive) heart failure Status: Chronic (3) Pleural effusion Status: Acute (4) S/P thoracentesis Status: Acute (5) CANDELARIA (acute kidney injury) Status: Acute (6) HTN (hypertension) Status: Chronic (7) A-fib Status: Chronic (8) Sleep apnea Status: Chronic (9) Lung nodule Status: Acute - Assessment and Plan (Free Text) Plan: Patient is off Digoxin and Metropolol , nurse reported when moving Patient from bed to chair heart up to 130's 140's , at rest heart rate is controlled , plan is to have bedside R Thoracentesis bedside tomorrow by IR , Coumadin on hold , continue Lasix , PT ICU Time: 40 min.
[2017-05-07] MEDS ORDERED: Enoxaparin 60 mg Syringe SC STA ×2 (18:39→19:44)
[2017-05-07] MEDS ORDERED: Enoxaparin 80 mg Syringe SC STA (19:49)
[2017-05-08] MEDS ORDERED: Metoprolol 1 mg/ml Inj IVP ONE (04:09)
[2017-05-08] MEDS ORDERED: Metoprolol 1 mg/ml Inj IVP STA ×2 (04:11→23:41)
--- NOTE | 2017-05-08 07:20 | CP.CCUPN ---
CCU Subjective - Physician Review Subjective (Free Text): Remains on BiPAP overnight, at 16/10, 50% with RR 18 and avg TV 350ml. SPO2 99% , he has visible skin breakdown over the nasal bridge area, just converted to HFNC at 40% / 20 LPM, with 100% SPO2. Recurrent tachycardia noted with HR up to 130s overnight at times, non-sustained. 24H I/O's = neg 1.9L. Improved wakefulness noted, but remains slow to respond, even from interaction with . Being intermittently PO fed by . Underwent Left thoracentesis again 2 days ago with approx. 1.2 L removed. CCU Objective - Vital Signs / Intake & Output Vital Signs (Last 4 hours): Vital Signs Temp Pulse Resp BP Pulse Ox 05/08/17 05:05 111 H 05/08/17 04:19 124 H 135/76 05/08/17 04:00 98.8 F 109 H 19 135/76 100 Intake and Output (Last 8hrs): Intake & Output 05/07/17 05/08/17 05/08/17 22:59 06:59 14:59 Intake Total 0 0 Output Total 1100 800 Balance -1100 -800 Intake: IV 0 0 Output: Urine 1100 800 Urethral (Wang) 1100 800 Other: # Bowel Movements 1 - Physical Exam Head: Positive for: Normocephalic Pupils: Positive for: PERRL Extroacular Muscles: Positive for: EOMI Conjunctiva: Positive for: Normal Ears: Positive for: Normal Mouth: Positive for: Moist Mucous Membranes Nose (External): Positive for: Atraumatic. Negative for: Abrasion Nose (Internal): Positive for: Normal Inspection Neck: Positive for: Normal Range of Motion. Negative for: JVD Respiratory/Chest: Positive for: Decreased Breath Sounds, Rhonchi. Negative for : Wheezes Cardiovascular: Positive for: Irregular Rhythm. Negative for: Murmurs Abdomen: Positive for: Normal Bowel Sounds. Negative for: Tenderness, Distention Upper Extremity: Positive for: Edema, Neurovascularly Intact, Other (Left arm PICC line, site clean, intact) Lower Extremity: Positive for: Edema, NORMAL PULSES. Negative for: CALF TENDERNESS, Cyanosis Neurological: Positive for: Other (on ventilator, opens eyes to verbal stimuli) Skin: Positive for: Warm, Other (Unstageable sacral ulcer). Negative for: Rashes Psychiatric: Positive for: Alert, Oriented x 3 - Medications Active Medications: Active Medications Generic Name Dose Route Start Last Admin Trade Name Stephan PRN Reason Stop Dose Admin Collagenase 1 applic 05/02/17 16:00 05/07/17 08:37 Santyl TOP 1 appl DAILY [facility] Administration Docusate Sodium 200 mg 05/04/17 09:00 05/07/17 11:59 Colace Liquid PO 200 mg DAILY [facility] Administration Famotidine 20 mg 04/18/17 17:00 05/07/17 16:25 Pepcid GT 20 mg BID [facility] Administration Furosemide 20 mg 05/04/17 13:57 05/08/17 02:11 Lasix IVP 20 mg Q12H [facility] Administration Lamotrigine 25 mg 04/15/17 17:00 05/07/17 16:25 Lamictal PO 25 mg BID [facility] Administration - Patient Studies Lab Studies: Lab Studies 05/08/17 Range/Units 04:30 PT 15.1 H (9.8-13.1) Seconds INR 1.3 H (0.9-1.2) Laboratory Results - last 24 hr 05/08/17 04:30 PT 15.1 H INR 1.3 H Radiology Interpretations (Free Text): None ordered for today, yesterday's film reviewed, bibasilar effusions noted, no new consolidations (my interp). Fingerstick Blood Sugar Results: 202 Critical Care Progress Note - Extremities/Vascular Does the Patient have a Central Venous Catheter?: Yes Does the Patient need a Central Venous Catheter?: Yes Does the Patient have a Wang Catheter?: Yes Does the Patient need a Wang Catheter?: Yes Catheter Insertion Criteria: Stage 3/Stage 4 decubits as per policy - Prophylaxis GI Prophylaxis GI: Pepsid - Prophylaxis DVT Prophylaxis DVT: SCDs - Nutrition Nutrition: Nutrition Category Date Time Status Dysphagia/Modified Consistency Diet [DIET] Diets 05/03/17 Dinner Active Assessment/Plan - Assessment and Plan (Free Text) Assessment: 1. Acute Hypoxemic Respiratory failure 2 bilat effusions; and with Atelectasis / pneumonia / tracheobronchitis 2. Azotemia and s/p Hypernatremia 3. A Fib with variable VR (tachy-bogdan with slow VR and pauses at times), was on AC. 4. Dementia Plan: - Warfarin has been held over the past several days due to procedures. Upcoming procedure today is repeat thoracentesis of R Lung. As discussed with Cardio, and will discuss with Pulm / PMD, patient may be served better with pigtail drainage of effusions as they recur due to an effusive process from his underlying heart disease, hypoalbuminemic state and debilitation. - Ventilatory support on BiPAP during NIGHTTIME noted, would try HFNC for 24H ATC instead of nighttime BiPAP; as he may be too LETHARGIC when he is on BiPAP, and allow time off BiPAP to prevent further pressure erosion of bridge of nose. - frequent suctioning and chest physiotherapy as tolerated. - Discussed with Cardio, will not treat not add any further AV abbie blocking drugs to control HR at this time given recent significant pauses as seen on telemetry. - Cautious PO feedings, assists with meals , informed of need for caution with PO meals, and to watch for any s/sx of aspiration. Speech Therapist has recommended video swallow study, but tenuous patient-tolerance for study. - Palliative care eval appears appropriate, I see no overall improvement in status over the last several weeks, especially resp status with ongoing watch for need for resumption of MV support. Self-mobilization of secretions is poor with weak cough and slow re-accumulation of pleural fluid noted. Diuretics started in attempt to improve anasarca. Renal function is impaired as well with azotemic BUN/Cr and probable CKD. Need discussion with regarding resuscitation, but she remains very optimistic on patients recovery. He remains full Code status for now.
[2017-05-08] MEDS: Santyl Collagenase OINTMENT TOP SCH (08:40)
--- NOTE | 2017-05-08 10:11 | CP.PCM.PN ---
Subjective - Date & Time of Evaluation Date of Evaluation: 05/08/17 Time of Evaluation: 09:00 - Subjective Subjective: Clinically no significant change A Fib at physiologic rate BP 128/74 mm Hg Level of conciousness/ wakefulness fluctuates during the course of the day Today's INR 1.3 (Warfarin hasbeen held in anticipation of Rt Pleural tap) Discussed the need for pleural tap with a drain in pleura to keep recurring effusion at bay (with Dr. Serrano) This keeps recurring due to hypoalbuminemia and LV diastolic dysfunctionwith A Fib His Echo images were reviewed LVEF appears preserved with enlarged LA (without significant MR) A pattern strongly suggestive of LV diastolic dysfunction. Objective - Vital Signs/Intake and Output Vital Signs (last 24 hours): Temp Pulse Resp BP Pulse Ox 97.6 F 80 19 118/62 99 05/08/17 08:00 05/08/17 09:00 05/08/17 09:00 05/08/17 09:00 05/08/17 09:00 Intake and Output: 05/08/17 05/08/17 06:59 18:59 Intake Total 0 30 Output Total 800 100 Balance -800 -70 - Medications Medications: Current Medications Collagenase (Santyl) 1 applic TOP DAILY [facility] Last Admin: 05/08/17 08:40 Dose: 1 appl Docusate Sodium (Colace Liquid) 200 mg PO DAILY [facility] Last Admin: 05/08/17 08:39 Dose: 200 mg Famotidine (Pepcid) 20 mg GT BID [facility] Last Admin: 05/08/17 08:40 Dose: 20 mg Furosemide (Lasix) 20 mg IVP Q12H [facility] Last Admin: 05/08/17 02:11 Dose: 20 mg Lamotrigine (Lamictal) 25 mg PO BID [facility] Last Admin: 05/08/17 08:39 Dose: 25 mg - Labs Labs: 05/07/17 04:20 05/07/17 04:20 PT 15.1 Seconds (9.8-13.1) H 05/08/17 04:30 INR 1.3 (0.9-1.2) H 05/08/17 04:30 APTT 26.3 Seconds (25.6-37.1) D 04/25/17 04:30
--- NOTE | 2017-05-08 11:34 | CARD ---
APPROVED REPORT EXAM: Two-dimensional and M-mode echocardiogram with Doppler and color Doppler. Other Information Quality : AverageRhythm : Atrial Fibrillation INDICATION Congestive Heart Failure 2D DIMENSIONS IVSd1.22 (0.7-1.1cm)LVDd3.09 (3.9-5.9cm) LVOT Diameter2.04 (1.8-2.4cm)PWd2.03 (0.7-1.1cm) IVSs1.74 (0.8-1.2cm)LVDs2.13 (2.5-4.0cm) FS (%) 31.0 %PWs1.85 (0.8-1.2cm) M-Mode DIMENSIONS Left Atrium (MM)4.97 (2.5-4.0cm)IVSd1.88 (0.7-1.1cm) Aortic Root3.50 (2.2-3.7cm)LVDd3.59 (4.0-5.6cm) Aortic Cusp Exc.1.94 (1.5-2.0cm)PWd1.31 (0.7-1.1cm) IVSs2.09 cmFS (%) 14 % LVDs3.09 (2.0-3.8cm)PWs1.69 cm Mitral Valve E/A ratio0.0 TDI E/Lateral E'0.0E/Medial E'0.0 Pulmonary Valve PV Peak [id number]/s Tricuspid Valve TR Peak [id number]/sRAP [id number] Peak Gr.24mmHg [id number] LEFT VENTRICLE The left ventricle is normal size. There is mild to moderate concentric left ventricular hypertrophy. The left ventricular function is normal. The left ventricular ejection fraction is 60% There is normal LV segmental wall motion. Pt in atrial fibrillation diastolic function could not be determined No left ventricle thrombus noted on this study. There is no ventricular septal defect visualized. There is no left ventricular aneurysm. There is no mass noted in the left ventricle. RIGHT VENTRICLE The right ventricle is normal size. There is normal right ventricular wall thickness. The right ventricular systolic function is normal. ATRIA The left atrium is severely dilated. The right atrium size is normal. The interatrial septum is intact with no evidence for an atrial septal defect. AORTIC VALVE The aortic valve is mildly to moderately sclerotic. There is mild aortic regurgitation. There is no aortic valvular stenosis. There is no aortic valvular vegetation. MITRAL VALVE The mitral valve is normal in structure and function. There is no evidence of mitral valve prolapse. There is no mitral valve stenosis. There is no mitral valve regurgitation noted. TRICUSPID VALVE The tricuspid valve is normal in structure and function. There is no tricuspid valve regurgitation noted. There is no tricuspid valve prolapse or vegetation. There is no tricuspid valve stenosis. PULMONIC VALVE The pulmonary valve is normal in structure and function. There is no pulmonic valvular regurgitation. There is no pulmonic valvular stenosis. GREAT VESSELS The aortic root is normal in size. The ascending aorta is normal in size. The IVC is normal in size and collapses >50% with inspiration. PERICARDIAL EFFUSION The pericardium appears normal. There is no pleural effusion. <Conclusion> Normal LV systolic function Concentric LVH Aortic Valve Sclerosis Mild Aortic Insufficiency
--- NOTE | 2017-05-08 11:57 | US ---
PROCEDURE: Date of procedure: 04/24/2017 Procedure: 1. Ultrasound-guided Right thoracentesis, CPT 67625 Medications: 8cc 1% Lidocaine HISTORY: Right pleural effusion, shortness of breath TECHNIQUE: Following informed consent ,the Patients' right chest was marked. Procedure time-out was called, and the patient was placed in the sitting position and limited ultrasound showed a large right effusion. The patient's right back was prepped and draped in the usual sterile fashion. After the skin was anesthetized with lidocaine, a drainage catheter was advanced under ultrasound guidance into the pleural space. Ultrasound-guided thoracentesis was performed. A total of 1500 cubic centimeters of straw-colored fluid removed without complication. A Xeroform dressing was applied. IMPRESSION: Ultrasound guided Right thoracentesis. There were no immediate complications.
[2017-05-08] MEDS ORDERED: Lidocaine 1% Inj (20ml) ONE (13:27)
--- NOTE | 2017-05-08 14:12 | PCM.SURG1 ---
Surgeon's Initial Post Op Note - Surgeon's Notes Surgeon: Clifford Friedman MD Technology Support Analyst: NONE Type of Anesthesia: Local Pre-Operative Diagnosis: Right pleural effusion Operative Findings: US showed a large right effusion. Post-Operative Diagnosis: Right pleural effusion Operation Performed: US guided right thoracentesis. Specimen/Specimens Removed: 1500 cc of straw colored fluid Estimated Blood Loss: EBL {In ML}: 0 Blood Products Given: N/A Drains Used: No Drains Post-Op Condition: Fair Date of Surgery/Procedure: 05/08/17 Time of Surgery/Procedure: 14:05
--- NOTE | 2017-05-08 16:24 | CP.PCM.PN ---
Subjective - Date & Time of Evaluation Date of Evaluation: 05/08/17 Time of Evaluation: 09:00 - Subjective Subjective: seatted,able to talk, follows commands , on high flow O2, Patient's at bedside Objective - Vital Signs/Intake and Output Vital Signs (last 24 hours): Temp Pulse Resp BP Pulse Ox 97.6 F 93 H 19 158/82 H 100 05/08/17 08:00 05/08/17 14:15 05/08/17 15:25 05/08/17 14:27 05/08/17 14:15 Intake and Output: 05/08/17 05/08/17 06:59 18:59 Intake Total 0 180 Output Total 800 310 Balance -800 -130 - Medications Medications: Current Medications Collagenase (Santyl) 1 applic TOP DAILY [facility] Last Admin: 05/08/17 08:40 Dose: 1 appl Docusate Sodium (Colace Liquid) 200 mg PO DAILY [facility] Last Admin: 05/08/17 08:39 Dose: 200 mg Famotidine (Pepcid) 20 mg GT BID [facility] Last Admin: 05/08/17 08:40 Dose: 20 mg Furosemide (Lasix) 20 mg IVP Q12H [facility] Last Admin: 05/08/17 14:27 Dose: 20 mg Lamotrigine (Lamictal) 25 mg PO BID [facility] Last Admin: 05/08/17 08:39 Dose: 25 mg Warfarin Sodium (Coumadin) 5 mg PO QD5 [facility] PRN Reason: Protocol Stop: 05/08/17 17:01 - Labs Labs: 05/07/17 04:20 05/07/17 04:20 PT 15.1 Seconds (9.8-13.1) H 05/08/17 04:30 INR 1.3 (0.9-1.2) H 05/08/17 04:30 APTT 26.3 Seconds (25.6-37.1) D 04/25/17 04:30 - Constitutional Appears: Chronically Ill - Head Exam Head Exam: NORMAL INSPECTION - Eye Exam Eye Exam: PERRL - ENT Exam ENT Exam: Normal Exam - Neck Exam Neck Exam: Normal Inspection - Respiratory Exam Respiratory Exam: Decreased Breath Sounds (at bases) - Cardiovascular Exam Cardiovascular Exam: Irregular Rhythm - GI/Abdominal Exam GI & Abdominal Exam: Soft, Normal Bowel Sounds - Extremities Exam Additional comments: no edema L/E , decreased edema U/E - Back Exam Additional comments: LS DTI - Neurological Exam Neurological Exam: Alert (no focal motor /sensory deficit, generalized weakness ) - Psychiatric Exam Psychiatric exam: Normal Mood - Skin Skin Exam: Warm Assessment and Plan (1) Acute respiratory failure Status: Acute (2) Acute on chronic diastolic (congestive) heart failure Status: Chronic (3) Pleural effusion Status: Acute (4) S/P thoracentesis Status: Acute (5) CANDELARIA (acute kidney injury) Status: Acute (6) HTN (hypertension) Status: Chronic (7) A-fib Status: Chronic (8) Sleep apnea Status: Chronic (9) Lung nodule Status: Acute - Assessment and Plan (Free Text) Plan: Patient is off Digoxin and Metropolol , last night heart rate up to 150,s had Metropolol IV, nurse reported heart rate up to 140,s when moving Patient from bed to chair , otherwise heart rate is controlled , to have Thoracentesis today afternoon bedside by IR , ECHO normal LV , LVEF 60% , LA severely dilated , mitral valve normal , no stenosis , no regurgitation, continue current medications and PT. ICU Time: 39 min.
--- NOTE | 2017-05-08 16:28 | RAD ---
PROCEDURE: CHEST RADIOGRAPH, 1 VIEW. Portable upright study 14:25 HISTORY: Status post right thoracentesis. COMPARISON: May 07, 2017. FINDINGS: LUNGS: Improved aeration of the right lung status post thoracentesis. Stable left pleural effusion PLEURA: No evidence of pneumothorax following right thoracentesis. CARDIOVASCULAR: No radiographic findings to suggest acute or significant cardiovascular disease. PICC line in satisfactory position unchanged compared to prior studies. OSSEOUS STRUCTURES: No residual fluid, re-expanded right lung. No pneumothorax identified. VISUALIZED UPPER ABDOMEN: Normal. OTHER FINDINGS: None. IMPRESSION: Status post right thoracentesis.
[2017-05-09] MEDS: Santyl Collagenase OINTMENT TOP SCH (08:24)
--- NOTE | 2017-05-09 10:29 | CP.PCM.PN ---
Subjective - Date & Time of Evaluation Date of Evaluation: 05/09/17 Time of Evaluation: 09:40 - Subjective Subjective: Now in telemetry unit Had 1500 Ml of Rt pleural fluid tapped uneventfully A Fib at 70-80 BPM BP 138/70 mm Hg Pulse ox 98% on O2 supplement JVP flat No rales (Insp effort poor) INR 1.3 (Warfarin restarted, now that pleural tap is done) Objective - Vital Signs/Intake and Output Vital Signs (last 24 hours): Temp Pulse Resp BP Pulse Ox 97.7 F 95 H 16 120/58 L 100 05/09/17 07:33 05/09/17 07:33 05/09/17 08:54 05/09/17 07:33 05/09/17 07:33 Intake and Output: 05/09/17 05/09/17 06:59 18:59 Intake Total 0 400 Output Total 200 Balance 0 200 - Medications Medications: Current Medications Collagenase (Santyl) 1 applic TOP DAILY [facility] Last Admin: 05/09/17 08:24 Dose: 1 appl Docusate Sodium (Colace Liquid) 200 mg PO DAILY [facility] Last Admin: 05/09/17 08:24 Dose: Not Given Famotidine (Pepcid) 20 mg GT BID [facility] Last Admin: 05/09/17 08:24 Dose: 20 mg Furosemide (Lasix) 20 mg IVP Q12H [facility] Last Admin: 05/09/17 02:38 Dose: 20 mg Lamotrigine (Lamictal) 25 mg PO BID [facility] Last Admin: 05/09/17 08:24 Dose: 25 mg - Labs Labs: 05/07/17 04:20 05/07/17 04:20 PT 14.6 Seconds (9.8-13.1) H 05/09/17 04:20 INR 1.3 (0.9-1.2) H 05/09/17 04:20 APTT 26.3 Seconds (25.6-37.1) D 04/25/17 04:30
--- NOTE | 2017-05-09 10:33 | US ---
PROCEDURE: Date of procedure: 05/08/2017 Procedure: 1. Ultrasound-guided Right thoracentesis, CPT 66543 Medications: 6cc 1% Lidocaine HISTORY: Right pleural effusion, shortness of breath TECHNIQUE: Following informed consent ,the Patients' right chest was marked. Procedure time-out was called, and the patient was placed in the sitting position and limited ultrasound showed a large right effusion. The patient's right back was prepped and draped in the usual sterile fashion. After the skin was anesthetized with lidocaine, a drainage catheter was advanced under ultrasound guidance into the pleural space. Ultrasound-guided thoracentesis was performed. A total of 1400 cubic centimeters of straw-colored fluid removed without complication. A Xeroform dressing was applied. IMPRESSION: Ultrasound guided Right thoracentesis. There were no immediate complications.
--- NOTE | 2017-05-09 17:56 | CP.PCM.PN ---
Subjective - Date & Time of Evaluation Date of Evaluation: 05/09/17 Time of Evaluation: 10:40 - Subjective Subjective: F/U Respiratory failure. Alert,talking with and Therapist, no AD Objective - Vital Signs/Intake and Output Vital Signs (last 24 hours): Temp Pulse Resp BP Pulse Ox 97.8 F 66 20 128/66 99 05/09/17 15:38 05/09/17 15:38 05/09/17 15:38 05/09/17 15:38 05/09/17 15:38 Intake and Output: 05/09/17 05/09/17 06:59 18:59 Intake Total 0 400 Output Total 200 Balance 0 200 - Medications Medications: Current Medications Collagenase (Santyl) 1 applic TOP DAILY [facility] Last Admin: 05/09/17 08:24 Dose: 1 appl Docusate Sodium (Colace Liquid) 200 mg PO DAILY [facility] Last Admin: 05/09/17 08:24 Dose: Not Given Famotidine (Pepcid) 20 mg PO BID [facility] Last Admin: 05/09/17 17:35 Dose: 20 mg Furosemide (Lasix) 20 mg IVP Q12H [facility] Last Admin: 05/09/17 14:51 Dose: 20 mg Heparin Sodium (Porcine) (Heparin) 5,000 units SC Q12 [facility] PRN Reason: Protocol Last Admin: 05/09/17 12:27 Dose: 5,000 units Lamotrigine (Lamictal) 25 mg PO BID [facility] Last Admin: 05/09/17 17:35 Dose: 25 mg - Labs Labs: 05/07/17 04:20 05/07/17 04:20 PT 14.6 Seconds (9.8-13.1) H 05/09/17 04:20 INR 1.3 (0.9-1.2) H 05/09/17 04:20 APTT 26.3 Seconds (25.6-37.1) D 04/25/17 04:30 - Constitutional Appears: No Acute Distress - Head Exam Head Exam: NORMAL INSPECTION - Eye Exam Eye Exam: PERRL - ENT Exam ENT Exam: Normal Oropharynx - Neck Exam Neck Exam: Normal Inspection - Respiratory Exam Respiratory Exam: Decreased Breath Sounds (at bases) - Cardiovascular Exam Cardiovascular Exam: Irregular Rhythm - GI/Abdominal Exam GI & Abdominal Exam: Soft, Normal Bowel Sounds - Extremities Exam Additional comments: Decreased edema U/E - Back Exam Additional comments: LS DTI - Neurological Exam Neurological Exam: Alert Additional comments: No focal motor sensory deficit, generalized weakness. - Psychiatric Exam Psychiatric exam: Normal Mood - Skin Skin Exam: Warm Assessment and Plan (1) Acute respiratory failure Status: Acute (2) Acute on chronic diastolic (congestive) heart failure Status: Acute (3) Pleural effusion Status: Acute (4) S/P thoracentesis Status: Acute (5) CANDELARIA (acute kidney injury) Status: Resolved (6) HTN (hypertension) Status: Chronic (7) A-fib Status: Chronic (8) Sleep apnea Status: Chronic (9) Lung nodule Status: Acute - Assessment and Plan (Free Text) Plan: Ddiscussed with Therapist at bedside , Patient able to stand 4 times , heart rate , BP stable , continue Lasix , Coumadin ,Santyl, Lamictal
[2017-05-10] MEDS ORDERED: Metoprolol 1 mg/ml Inj IVP STA (01:34)
[2017-05-10 07:35] LABS: ALKALINE PHOSPHATASE 94 U/L (38-126); ALT/SGPT 28 U/L (21-72); AST/SGOT 25 U/L (17-59); BILIRUBIN,TOTAL 0.8 mg/dl (0.2-1.3); BLOOD UREA NITROGEN 31 mg/dl (9-20); CALCIUM 8.4 mg/dL (8.4-10.2); CARBON DIOXIDE 34 mmol/L (22-30); CHLORIDE 94 mmol/L (98-107); GFR AFRICAN-AMERICAN > 60; GLUCOSE,RANDOM 100 mg/dL (75-110); POTASSIUM 3.8 MMOL/L (3.6-5.0); SODIUM 135 mmol/l (132-148); TOTAL PROTEIN 6.2 G/DL (6.3-8.2)
[2017-05-10 07:36] LABS: ALB/GLOB RATIO 0.9 (1.0-2.1)
--- NOTE | 2017-05-10 09:27 | CP.PCM.PN ---
Subjective - Date & Time of Evaluation Date of Evaluation: 05/10/17 Time of Evaluation: 09:00 - Subjective Subjective: On telemetry floor Early AM was given a dose of Lopressor IV for a brief period of tach Otherwise pt has been in A Fib with HR 70-90 BPM without Beta blockade or Dig or Cardizem BP 126/70 mm Hg Easily arousable and has been eating when fed (S.Albumin now 3.0-3.2 Gms) Renal function and electrolytes stable JVP flat, anasarca less INR 1.3 (warfarin ordered ) Gets PT Objective - Vital Signs/Intake and Output Vital Signs (last 24 hours): Temp Pulse Resp BP Pulse Ox 97.5 F L 60 16 106/64 99 05/10/17 08:00 05/10/17 08:00 05/10/17 08:05 05/10/17 08:00 05/10/17 08:00 - Medications Medications: Current Medications Collagenase (Santyl) 1 applic TOP DAILY [facility] Last Admin: 05/09/17 08:24 Dose: 1 appl Docusate Sodium (Colace Liquid) 200 mg PO DAILY [facility] Last Admin: 05/09/17 08:24 Dose: Not Given Famotidine (Pepcid) 20 mg PO BID [facility] Last Admin: 05/09/17 17:35 Dose: 20 mg Furosemide (Lasix) 20 mg IVP Q12H [facility] Last Admin: 05/10/17 03:38 Dose: 20 mg Heparin Sodium (Porcine) (Heparin) 5,000 units SC Q12 [facility] PRN Reason: Protocol Last Admin: 05/09/17 23:59 Dose: 5,000 units Lamotrigine (Lamictal) 25 mg PO BID [facility] Last Admin: 05/09/17 17:35 Dose: 25 mg Warfarin Sodium (Coumadin) 7.5 mg PO QD5 [facility] PRN Reason: Protocol Stop: 05/10/17 17:01 - Labs Labs: 05/07/17 04:20 05/10/17 05:05 PT 14.6 Seconds (9.8-13.1) H 05/10/17 05:05 INR 1.3 (0.9-1.2) H 05/10/17 05:05 APTT 26.3 Seconds (25.6-37.1) D 04/25/17 04:30
[2017-05-10] MEDS: Santyl Collagenase OINTMENT TOP SCH (10:23)
--- NOTE | 2017-05-10 15:10 | CP.PCM.PN ---
Subjective - Date & Time of Evaluation Date of Evaluation: 05/10/17 Time of Evaluation: 14:50 - Subjective Subjective: F/U respiratory Failure. Pt doing well, able to talk, no A/D, Pt at bedside, VS stable, on high flow O2. Objective - Vital Signs/Intake and Output Vital Signs (last 24 hours): Temp Pulse Resp BP Pulse Ox 98.6 F 93 H 16 123/76 95 05/10/17 12:00 05/10/17 12:00 05/10/17 13:15 05/10/17 13:15 05/10/17 12:00 - Medications Medications: Current Medications Collagenase (Santyl) 1 applic TOP DAILY [facility] Last Admin: 05/10/17 10:23 Dose: 1 appl Docusate Sodium (Colace Liquid) 200 mg PO DAILY [facility] Last Admin: 05/09/17 08:24 Dose: Not Given Famotidine (Pepcid) 20 mg PO BID [facility] Last Admin: 05/10/17 10:23 Dose: 20 mg Furosemide (Lasix) 20 mg IVP Q12H [facility] Last Admin: 05/10/17 13:15 Dose: 20 mg Heparin Sodium (Porcine) (Heparin) 5,000 units SC Q12 [facility] PRN Reason: Protocol Last Admin: 05/10/17 10:22 Dose: 5,000 units Lamotrigine (Lamictal) 25 mg PO BID [facility] Last Admin: 05/10/17 10:22 Dose: 25 mg Warfarin Sodium (Coumadin) 7.5 mg PO QD5 [facility] PRN Reason: Protocol Stop: 05/10/17 17:01 - Labs Labs: 05/07/17 04:20 05/10/17 05:05 PT 14.6 Seconds (9.8-13.1) H 05/10/17 05:05 INR 1.3 (0.9-1.2) H 05/10/17 05:05 APTT 26.3 Seconds (25.6-37.1) D 04/25/17 04:30 - Constitutional Appears: No Acute Distress - Head Exam Head Exam: NORMAL INSPECTION - Eye Exam Eye Exam: PERRL - ENT Exam ENT Exam: Normal Oropharynx - Respiratory Exam Respiratory Exam: Decreased Breath Sounds (at bases) - Cardiovascular Exam Cardiovascular Exam: Irregular Rhythm - GI/Abdominal Exam GI & Abdominal Exam: Soft, Normal Bowel Sounds - Extremities Exam Additional comments: Decreased edema U/E - Back Exam Additional comments: L-S DTI - Neurological Exam Neurological Exam: Alert Additional comments: No focal motor/sensory deficit, generalized weakness. - Psychiatric Exam Psychiatric exam: Normal Mood - Skin Skin Exam: Warm Assessment and Plan (1) Acute respiratory failure Status: Acute (2) Acute on chronic diastolic (congestive) heart failure Status: Chronic (3) Pleural effusion Status: Acute (4) S/P thoracentesis Status: Acute (5) CANDELARIA (acute kidney injury) Status: Acute (6) HTN (hypertension) Status: Chronic (7) A-fib Status: Chronic (8) Sleep apnea Status: Chronic (9) Lung nodule Status: Acute - Assessment and Plan (Free Text) Plan: Continue current Tx and PT.
[2017-05-11 07:27] LABS: HEMATOCRIT 33.8 % (35.0-51.0); MEAN CELL VOLUME 93.2 fl (80.0-94.0); MEAN CORPUSCULAR HEMOGLOBIN 30.5 pg (27.0-31.0); MEAN CORPUSCULAR HGB CONC 32.7 g/dL (33.0-37.0); RED CELL DISTRIBUTION WIDTH 16.5 % (11.5-14.5); WHITE BLOOD COUNT 4.6 K/uL (4.8-10.8)
[2017-05-11] MEDS ORDERED: Santyl Collagenase OINTMENT ONE (09:00)
--- NOTE | 2017-05-11 09:35 | CP.PCM.PN ---
Subjective - Date & Time of Evaluation Date of Evaluation: 05/11/17 Time of Evaluation: 09:10 - Subjective Subjective: Pt awake, follows simple commands Afebrile, RR 16-18 BPM Telemetry shows A Fib mostly 120-130 BPM (No pauses) BP 124/70 mm Hg JVP flat, no rales INR .4 (Warfarin ordered) Metoprolol restarted Objective - Vital Signs/Intake and Output Vital Signs (last 24 hours): Temp Pulse Resp BP Pulse Ox 97.5 F L 91 H 20 146/72 100 05/11/17 08:00 05/11/17 08:00 05/11/17 08:00 05/11/17 08:00 05/11/17 08:00 Intake and Output: 05/11/17 05/11/17 06:59 18:59 Output Total 950 Balance -950 - Medications Medications: Current Medications Collagenase (Santyl) 1 applic TOP DAILY [facility] Last Admin: 05/10/17 10:23 Dose: 1 appl Docusate Sodium (Colace Liquid) 200 mg PO DAILY [facility] Last Admin: 05/10/17 16:49 Dose: Not Given Famotidine (Pepcid) 20 mg PO BID [facility] Last Admin: 05/10/17 17:10 Dose: 20 mg Furosemide (Lasix) 20 mg IVP Q12H [facility] Last Admin: 05/11/17 01:12 Dose: 20 mg Heparin Sodium (Porcine) (Heparin) 5,000 units SC Q12 [facility] PRN Reason: Protocol Last Admin: 05/10/17 21:39 Dose: 5,000 units Lamotrigine (Lamictal) 25 mg PO BID [facility] Last Admin: 05/10/17 17:10 Dose: 25 mg Metoprolol Tartrate (Lopressor) 12.5 mg PO Q12 [facility] Warfarin Sodium (Coumadin) 7.5 mg PO QD5 [facility] PRN Reason: Protocol Stop: 05/11/17 17:01 - Labs Labs: 05/11/17 06:30 05/10/17 05:05 PT 16.0 Seconds (9.8-13.1) H 05/11/17 06:30 INR 1.4 (0.9-1.2) H 05/11/17 06:30 APTT 26.3 Seconds (25.6-37.1) D 04/25/17 04:30
[2017-05-12] MEDS ORDERED: Metoprolol 1 mg/ml Inj IVP STA (03:24)
[2017-05-12 08:36] LABS: ALB/GLOB RATIO 0.9 (1.0-2.1); ALKALINE PHOSPHATASE 103 U/L (38-126); ALT/SGPT 33 U/L (21-72); AST/SGOT 34 U/L (17-59); BILIRUBIN,TOTAL 0.6 mg/dl (0.2-1.3); BLOOD UREA NITROGEN 27 mg/dl (9-20); CALCIUM 8.7 mg/dL (8.4-10.2); CARBON DIOXIDE 36 mmol/L (22-30); CHLORIDE 96 mmol/L (98-107); GFR AFRICAN-AMERICAN > 60; GLUCOSE,RANDOM 105 mg/dL (75-110); POTASSIUM 4.4 MMOL/L (3.6-5.0); SODIUM 137 mmol/l (132-148); TOTAL PROTEIN 6.3 G/DL (6.3-8.2)
[2017-05-12] MEDS: Santyl Collagenase OINTMENT TOP SCH (08:43)
--- NOTE | 2017-05-12 17:21 | CP.PCM.PN ---
Subjective - Date & Time of Evaluation Date of Evaluation: 05/12/17 Time of Evaluation: 09:40 - Subjective Subjective: Patient is smiling, able to talk , no AD,follows commands , on high flow O2 Objective - Vital Signs/Intake and Output Vital Signs (last 24 hours): Temp Pulse Resp BP Pulse Ox 97.6 F 97 H 21 114/60 98 05/12/17 15:27 05/12/17 15:27 05/12/17 15:45 05/12/17 15:27 05/12/17 15:27 - Medications Medications: Current Medications Collagenase (Santyl) 1 applic TOP DAILY [facility] Last Admin: 05/12/17 08:43 Dose: 1 appl Docusate Sodium (Colace Liquid) 200 mg PO DAILY [facility] Last Admin: 05/12/17 08:43 Dose: 200 mg Famotidine (Pepcid) 20 mg PO BID [facility] Last Admin: 05/12/17 16:22 Dose: 20 mg Furosemide (Lasix) 20 mg IVP Q12H [facility] Last Admin: 05/12/17 13:43 Dose: 20 mg Heparin Sodium (Porcine) (Heparin) 5,000 units SC Q12 [facility] PRN Reason: Protocol Last Admin: 05/12/17 08:43 Dose: 5,000 units Home Med (Patient's Own Medication) 0.5 unit PO DAILY [facility] Lamotrigine (Lamictal) 25 mg PO BID [facility] Last Admin: 05/12/17 16:21 Dose: 25 mg Metoprolol Tartrate (Lopressor) 12.5 mg PO Q12 [facility] Last Admin: 05/12/17 08:41 Dose: 12.5 mg - Labs Labs: 05/11/17 06:30 05/12/17 06:30 PT 21.5 Seconds (9.8-13.1) H D 05/12/17 06:30 INR 1.9 (0.9-1.2) H D 05/12/17 06:30 APTT 26.3 Seconds (25.6-37.1) D 04/25/17 04:30 - Constitutional Appears: Chronically Ill - Head Exam Head Exam: NORMAL INSPECTION - Eye Exam Eye Exam: PERRL - ENT Exam ENT Exam: Normal Exam - Neck Exam Neck Exam: Normal Inspection - Respiratory Exam Respiratory Exam: Decreased Breath Sounds (at bases) - Cardiovascular Exam Cardiovascular Exam: Irregular Rhythm - GI/Abdominal Exam GI & Abdominal Exam: Soft, Normal Bowel Sounds - Extremities Exam Extremities Exam: Normal Inspection - Back Exam Additional comments: LS DTI - Neurological Exam Neurological Exam: Alert Additional comments: no focal motor sensory deficit - Psychiatric Exam Psychiatric exam: Normal Mood - Skin Skin Exam: Warm Assessment and Plan (1) Acute respiratory failure Status: Acute (2) Acute on chronic diastolic (congestive) heart failure Status: Chronic (3) Pleural effusion Status: Acute (4) S/P thoracentesis Status: Acute (5) CANDELARIA (acute kidney injury) Status: Acute (6) HTN (hypertension) Status: Chronic (7) A-fib Status: Chronic (8) Sleep apnea Status: Chronic (9) Lung nodule Status: Acute - Assessment and Plan (Free Text) Plan: Continue High flow O2 , BIPAP , Lasix, Coumadin, Lovenox , Santyl , Metropolol 12,5 , to control heart rate, able to stand with walker and PT help
--- NOTE | 2017-05-13 08:24 | CP.PCM.PN ---
Subjective - Date & Time of Evaluation Date of Evaluation: 05/13/17 Time of Evaluation: 08:10 - Subjective Subjective: Drowsy, arousable A Fib at 80-90 BPM BP 126/70 mm Hg JVP flat, no pedal oedema Insp effort poor, bot no rales audible With O2 supplement, pulse ox 98-99% Today's INR 1.8 (warfarin ordered) Have ordered daily INR for next [address] Escamilla will manage Warfarin dose Have switched Lasix to PO dose Pt has been stable from cardiac point of view. Will sign off the case (call me as needed) Have informed Dr. Escamilla. Objective - Vital Signs/Intake and Output Vital Signs (last 24 hours): Temp Pulse Resp BP Pulse Ox 97 F L 82 18 118/67 99 05/13/17 08:00 05/13/17 08:00 05/13/17 08:00 05/13/17 08:00 05/13/17 08:00 Intake and Output: 05/13/17 05/13/17 06:59 18:59 Output Total 450 Balance -450 - Medications Medications: Current Medications Collagenase (Santyl) 1 applic TOP DAILY [facility] Last Admin: 05/12/17 08:43 Dose: 1 appl Docusate Sodium (Colace Liquid) 200 mg PO DAILY [facility] Last Admin: 05/12/17 08:43 Dose: 200 mg Famotidine (Pepcid) 20 mg PO BID [facility] Last Admin: 05/12/17 16:22 Dose: 20 mg Furosemide (Lasix) 20 mg IVP Q12H [facility] Last Admin: 05/13/17 01:52 Dose: 20 mg Heparin Sodium (Porcine) (Heparin) 5,000 units SC Q12 [facility] PRN Reason: Protocol Last Admin: 05/12/17 21:36 Dose: 5,000 units Home Med (Patient's Own Medication) 0.5 unit PO DAILY [facility] Lamotrigine (Lamictal) 25 mg PO BID [facility] Last Admin: 05/12/17 16:21 Dose: 25 mg Metoprolol Tartrate (Lopressor) 12.5 mg PO Q12 [facility] Last Admin: 05/12/17 21:42 Dose: 12.5 mg Warfarin Sodium (Coumadin) 2.5 mg PO QD5 [facility] PRN Reason: Protocol Stop: 05/13/17 17:01 - Labs Labs: 05/11/17 06:30 05/12/17 06:30 PT 21.1 Seconds (9.8-13.1) H 05/13/17 05:00 INR 1.8 (0.9-1.2) H 05/13/17 05:00 APTT 26.3 Seconds (25.6-37.1) D 04/25/17 04:30
[2017-05-13] MEDS ORDERED: AVODART 0.5 MG PO SCH (09:00)
--- NOTE | 2017-05-13 16:54 | CP.PCM.PN ---
Subjective - Date & Time of Evaluation Date of Evaluation: 05/13/17 Time of Evaluation: 09:00 - Subjective Subjective: F/U Respiratory Failure. Pt awake, able to talk, follows commands. Objective - Vital Signs/Intake and Output Vital Signs (last 24 hours): Temp Pulse Resp BP Pulse Ox 98.6 F 88 20 117/61 98 05/13/17 15:44 05/13/17 15:44 05/13/17 15:44 05/13/17 15:44 05/13/17 15:44 Intake and Output: 05/13/17 05/13/17 06:59 18:59 Output Total 450 Balance -450 - Medications Medications: Current Medications Collagenase (Santyl) 1 applic TOP DAILY [facility] Last Admin: 05/12/17 08:43 Dose: 1 appl Docusate Sodium (Colace Liquid) 200 mg PO DAILY [facility] Last Admin: 05/13/17 09:48 Dose: Not Given Famotidine (Pepcid) 20 mg PO BID [facility] Last Admin: 05/13/17 09:49 Dose: 20 mg Furosemide (Lasix) 20 mg PO BID [facility] Last Admin: 05/13/17 09:50 Dose: 20 mg Lamotrigine (Lamictal) 25 mg PO BID [facility] Last Admin: 05/13/17 09:48 Dose: 25 mg Metoprolol Tartrate (Lopressor) 12.5 mg PO Q12 [facility] Last Admin: 05/13/17 09:51 Dose: 12.5 mg Warfarin Sodium (Coumadin) 2.5 mg PO QD5 [facility] PRN Reason: Protocol Stop: 05/13/17 17:01 - Labs Labs: 05/11/17 06:30 05/12/17 06:30 PT 21.1 Seconds (9.8-13.1) H 05/13/17 05:00 INR 1.8 (0.9-1.2) H 05/13/17 05:00 APTT 26.3 Seconds (25.6-37.1) D 04/25/17 04:30 - Constitutional Appears: No Acute Distress, Chronically Ill - Head Exam Head Exam: NORMAL INSPECTION - Eye Exam Eye Exam: PERRL - ENT Exam ENT Exam: Normal Oropharynx - Neck Exam Neck Exam: Normal Inspection - Respiratory Exam Respiratory Exam: Decreased Breath Sounds (at bases) - Cardiovascular Exam Cardiovascular Exam: Irregular Rhythm - GI/Abdominal Exam GI & Abdominal Exam: Soft, Normal Bowel Sounds - Extremities Exam Extremities Exam: Normal Inspection - Back Exam Additional comments: L-S DTI - Neurological Exam Neurological Exam: Alert Additional comments: Awake, follows commands, no focal motor sensory deficit, generalized weakness. - Psychiatric Exam Psychiatric exam: Normal Mood - Skin Skin Exam: Warm Assessment and Plan (1) Acute respiratory failure Status: Acute (2) Acute on chronic diastolic (congestive) heart failure Status: Acute (3) Pleural effusion Status: Acute (4) S/P thoracentesis Status: Acute (5) CANDELARIA (acute kidney injury) Status: Resolved (6) HTN (hypertension) Status: Chronic (7) A-fib Status: Chronic (8) Sleep apnea Status: Chronic (9) Lung nodule Status: Acute - Assessment and Plan (Free Text) Plan: Continue Coumadin, Lopressor, Lasix, rest of Tx and PT.
[2017-05-13] MEDS: Santyl Collagenase OINTMENT TOP SCH (17:35)
[2017-05-14] MEDS ORDERED: Metoprolol 1 mg/ml Inj IVP STA (03:28)
[2017-05-14] MEDS: Santyl Collagenase OINTMENT TOP SCH (12:39)
--- NOTE | 2017-05-14 17:07 | CP.PCM.PN ---
Subjective - Date & Time of Evaluation Date of Evaluation: 05/14/17 Time of Evaluation: 10:30 - Subjective Subjective: F/U Respiratory Failure Awake , smiling , able to talk , no AD , Patient's at bedside Objective - Vital Signs/Intake and Output Vital Signs (last 24 hours): Temp Pulse Resp BP Pulse Ox 98.2 F 90 20 137/75 97 05/14/17 15:47 05/14/17 15:47 05/14/17 15:47 05/14/17 15:47 05/14/17 15:47 Intake and Output: 05/14/17 05/14/17 06:59 18:59 Output Total 500 Balance -500 - Medications Medications: Current Medications Collagenase (Santyl) 1 applic TOP DAILY [facility] Last Admin: 05/14/17 12:39 Dose: Not Given Docusate Sodium (Colace Liquid) 200 mg PO DAILY [facility] Last Admin: 05/14/17 09:29 Dose: Not Given Famotidine (Pepcid) 20 mg PO BID [facility] Last Admin: 05/14/17 09:28 Dose: 20 mg Furosemide (Lasix) 20 mg PO BID [facility] Last Admin: 05/14/17 09:28 Dose: 20 mg Lamotrigine (Lamictal) 25 mg PO BID [facility] Last Admin: 05/14/17 09:28 Dose: 25 mg Metoprolol Tartrate (Lopressor) 25 mg PO Q12 [facility] Warfarin Sodium (Coumadin) 2 mg PO ONCE [facility] PRN Reason: Protocol - Labs Labs: 05/11/17 06:30 05/12/17 06:30 PT 19.4 Seconds (9.8-13.1) H 05/14/17 05:00 INR 1.7 (0.9-1.2) H 05/14/17 05:00 APTT 26.3 Seconds (25.6-37.1) D 04/25/17 04:30 - Constitutional Appears: No Acute Distress, Chronically Ill - Head Exam Head Exam: NORMAL INSPECTION - Eye Exam Eye Exam: PERRL - ENT Exam ENT Exam: Normal Oropharynx - Neck Exam Neck Exam: Normal Inspection - Respiratory Exam Respiratory Exam: Decreased Breath Sounds (at bases) - Cardiovascular Exam Cardiovascular Exam: Irregular Rhythm - GI/Abdominal Exam GI & Abdominal Exam: Soft, Normal Bowel Sounds - Extremities Exam Extremities Exam: Normal Inspection - Back Exam Additional comments: L-S DTI - Neurological Exam Neurological Exam: Alert Additional comments: Awake, follows commands, generalized weakness, no focal motor sensory deficit. - Psychiatric Exam Psychiatric exam: Normal Mood - Skin Skin Exam: Warm Assessment and Plan (1) Acute respiratory failure Status: Acute (2) Acute on chronic diastolic (congestive) heart failure Status: Acute (3) Pleural effusion Status: Acute (4) S/P thoracentesis Status: Acute (5) CANDELARIA (acute kidney injury) Status: Resolved (6) HTN (hypertension) Status: Chronic (7) A-fib Status: Chronic (8) Sleep apnea Status: Chronic (9) Lung nodule Status: Acute - Assessment and Plan (Free Text) Plan: A Fib rate controlled, continue Coumadin , Metropolol , Lasix , High Flow O2 , BiPAP PT and rest of treatment,Social Service to look for [facility] Facility that accept Patient with High Flow O2.
[2017-05-15] MEDS ORDERED: Phenylephrine 10 mg/ml Inj ONE (08:20)
--- NOTE | 2017-05-15 08:26 | CP.PCM.PN ---
Subjective - Date & Time of Evaluation Date of Evaluation: 05/15/17 Time of Evaluation: 08:00 - Subjective Subjective: Generally doing well (no dyspnoea, Pulse ox stable) Had persistent tachycardia yesterday morning (120-130 BPM) on telemetry as per nurse I had increased dose of metoprolol appropriately, yesterday afternoon Telemetry subsequently shows a fib at 80-100 BPM BP 126/74 mm Hg JVP flat, no rales INR is 1.5 (Warfarin ordered) Objective - Vital Signs/Intake and Output Vital Signs (last 24 hours): Temp Pulse Resp BP Pulse Ox 97.5 F L 96 H 18 117/86 99 05/15/17 08:06 05/15/17 08:13 05/15/17 08:06 05/15/17 08:13 05/15/17 08:06 - Medications Medications: Current Medications Collagenase (Santyl) 1 applic TOP DAILY [facility] Last Admin: 05/14/17 12:39 Dose: Not Given Docusate Sodium (Colace Liquid) 200 mg PO DAILY [facility] Last Admin: 05/15/17 08:16 Dose: Not Given Famotidine (Pepcid) 20 mg PO BID [facility] Last Admin: 05/15/17 08:12 Dose: 20 mg Furosemide (Lasix) 20 mg PO BID [facility] Last Admin: 05/15/17 08:13 Dose: 20 mg Lamotrigine (Lamictal) 25 mg PO BID [facility] Last Admin: 05/15/17 08:12 Dose: 25 mg Metoprolol Tartrate (Lopressor) 25 mg PO Q12 [facility] Last Admin: 05/15/17 08:13 Dose: 25 mg Warfarin Sodium (Coumadin) 7.5 mg PO QD5 [facility] PRN Reason: Protocol Stop: 05/15/17 17:01 - Labs Labs: 05/11/17 06:30 05/12/17 06:30 PT 17.4 Seconds (9.8-13.1) H 05/15/17 05:00 INR 1.5 (0.9-1.2) H 05/15/17 05:00 APTT 26.3 Seconds (25.6-37.1) D 04/25/17 04:30
[2017-05-15] MEDS: Santyl Collagenase OINTMENT TOP SCH (10:29)
--- NOTE | 2017-05-15 16:41 | CP.PCM.PN ---
Subjective - Date & Time of Evaluation Date of Evaluation: 05/15/17 Time of Evaluation: 13:40 - Subjective Subjective: F/U Respiratory Failure. Awake ,smiling , answer simple questiions , follows commands Objective - Vital Signs/Intake and Output Vital Signs (last 24 hours): Temp Pulse Resp BP Pulse Ox 97.6 F 78 20 108/48 L 97 05/15/17 15:55 05/15/17 16:06 05/15/17 15:55 05/15/17 16:34 05/15/17 16:06 - Medications Medications: Current Medications Collagenase (Santyl) 1 applic TOP DAILY [facility] Last Admin: 05/15/17 10:29 Dose: 1 appl Docusate Sodium (Colace Liquid) 200 mg PO DAILY [facility] Last Admin: 05/15/17 08:16 Dose: Not Given Famotidine (Pepcid) 20 mg PO BID [facility] Last Admin: 05/15/17 16:34 Dose: 20 mg Furosemide (Lasix) 20 mg PO BID [facility] Last Admin: 05/15/17 16:34 Dose: 20 mg Lamotrigine (Lamictal) 25 mg PO BID [facility] Last Admin: 05/15/17 16:34 Dose: 25 mg Metoprolol Tartrate (Lopressor) 25 mg PO Q12 [facility] Last Admin: 05/15/17 08:13 Dose: 25 mg Warfarin Sodium (Coumadin) 7.5 mg PO QD5 [facility] PRN Reason: Protocol Stop: 05/15/17 17:01 Last Admin: 05/15/17 16:34 Dose: 7.5 mg - Labs Labs: 05/11/17 06:30 05/12/17 06:30 PT 17.4 Seconds (9.8-13.1) H 05/15/17 05:00 INR 1.5 (0.9-1.2) H 05/15/17 05:00 APTT 26.3 Seconds (25.6-37.1) D 04/25/17 04:30 - Constitutional Appears: No Acute Distress, Chronically Ill - Head Exam Head Exam: NORMAL INSPECTION - Eye Exam Eye Exam: PERRL - ENT Exam ENT Exam: Normal Oropharynx - Neck Exam Neck Exam: Normal Inspection - Respiratory Exam Respiratory Exam: Decreased Breath Sounds (at bases) - Cardiovascular Exam Cardiovascular Exam: Irregular Rhythm - GI/Abdominal Exam GI & Abdominal Exam: Soft, Normal Bowel Sounds - Extremities Exam Extremities Exam: Normal Inspection - Back Exam Additional comments: L-S DTI - Neurological Exam Neurological Exam: Awake Additional comments: Awake, follows commands, generalized weakness, no focal motor sensory deficit. - Psychiatric Exam Psychiatric exam: Normal Mood - Skin Skin Exam: Warm Assessment and Plan (1) Acute respiratory failure Status: Acute (2) Acute on chronic diastolic (congestive) heart failure Status: Acute (3) Pleural effusion Status: Acute (4) S/P thoracentesis Status: Acute (5) CANDELARIA (acute kidney injury) Status: Resolved (6) HTN (hypertension) Status: Chronic (7) A-fib Status: Chronic (8) Sleep apnea Status: Chronic (9) Lung nodule Status: Acute - Assessment and Plan (Free Text) Plan: Lopressor increased to 25mg BID due to increased heart rate, continue Coumadin , Lasix , PT
[2017-05-16] MEDS: Santyl Collagenase OINTMENT TOP SCH (08:24)
--- NOTE | 2017-05-16 17:40 | CP.PCM.PN ---
Subjective - Date & Time of Evaluation Date of Evaluation: 05/16/17 Time of Evaluation: 09:30 - Subjective Subjective: F/U Respiratory Failure. arousable, falling sleep easily, Patient's at bedside Objective - Vital Signs/Intake and Output Vital Signs (last 24 hours): Temp Pulse Resp BP Pulse Ox 98.4 F 135 H 20 117/70 98 05/16/17 15:58 05/16/17 17:34 05/16/17 15:58 05/16/17 17:34 05/16/17 15:58 - Medications Medications: Current Medications Collagenase (Santyl) 1 applic TOP DAILY [facility] Last Admin: 05/16/17 08:24 Dose: 1 appl Docusate Sodium (Colace Liquid) 200 mg PO DAILY [facility] Last Admin: 05/16/17 08:20 Dose: 200 mg Famotidine (Pepcid) 20 mg PO BID [facility] Last Admin: 05/16/17 17:35 Dose: 20 mg Furosemide (Lasix) 20 mg PO BID [facility] Last Admin: 05/16/17 17:33 Dose: 20 mg Lamotrigine (Lamictal) 25 mg PO BID [facility] Last Admin: 05/16/17 17:35 Dose: 25 mg Metoprolol Tartrate (Lopressor) 25 mg PO Q12 [facility] Last Admin: 05/16/17 08:20 Dose: 25 mg - Labs Labs: 05/11/17 06:30 05/12/17 06:30 PT 16.8 Seconds (9.8-13.1) H 05/16/17 05:00 INR 1.5 (0.9-1.2) H 05/16/17 05:00 APTT 26.3 Seconds (25.6-37.1) D 04/25/17 04:30 - Constitutional Appears: No Acute Distress, Chronically Ill - Head Exam Head Exam: NORMAL INSPECTION - Eye Exam Eye Exam: PERRL - ENT Exam ENT Exam: Normal Oropharynx - Neck Exam Neck Exam: Normal Inspection - Respiratory Exam Respiratory Exam: Decreased Breath Sounds (at bases) - Cardiovascular Exam Cardiovascular Exam: Irregular Rhythm - GI/Abdominal Exam GI & Abdominal Exam: Soft, Normal Bowel Sounds - Extremities Exam Extremities Exam: Normal Inspection - Back Exam Additional comments: L-S DTI - Neurological Exam Neurological Exam: Awake Additional comments: arousable , follows commands , generalized weakness, no focal motor sensory deficit. - Psychiatric Exam Psychiatric exam: Normal Mood - Skin Skin Exam: Warm Assessment and Plan (1) Acute respiratory failure Status: Acute (2) Acute on chronic diastolic (congestive) heart failure Status: Acute (3) Pleural effusion Status: Acute (4) S/P thoracentesis Status: Acute (5) CANDELARIA (acute kidney injury) Status: Resolved (6) HTN (hypertension) Status: Chronic (7) A-fib Status: Chronic (8) Sleep apnea Status: Chronic (9) Lung nodule Status: Acute - Assessment and Plan (Free Text) Plan: heart rate better controlled , continue Lopressor , Lasix , Coumadin , Patient on High Flow O2 , attempt , to have a trial of NR Mask 100%, VM 50% NC 5 L/m to asses if Patient can keep O2 sat above 90,s, No [facility] Facility is accepting Patient with High Flow O2.
[2017-05-17] MEDS: Santyl Collagenase OINTMENT TOP SCH (10:00)
[2017-05-18 07:58] LABS: BASO % 0.6 % (0.0-2.0); EOS # 0.2 K/uL (0.0-0.7); EOS % 3.1 % (0.0-4.0); HEMATOCRIT 34.3 % (35.0-51.0); LYMPH # 1.1 K/uL (1.0-4.3); LYMPH % 21.8 % (20.0-40.0); MEAN CELL VOLUME 92.8 fl (80.0-94.0); MEAN CORPUSCULAR HEMOGLOBIN 31.1 pg (27.0-31.0); MEAN CORPUSCULAR HGB CONC 33.5 g/dL (33.0-37.0); MEAN PLATELET VOLUME 7.2 fl (7.2-11.7); MONO # 0.7 K/uL (0.0-0.8); MONO % 13.9 % (0.0-10.0); NEUT # 3.1 K/uL (1.8-7.0); NEUT % 60.6 % (50.0-75.0); RED CELL DISTRIBUTION WIDTH 15.5 % (11.5-14.5); WHITE BLOOD COUNT 5.1 K/uL (4.8-10.8)
[2017-05-18 08:28] LABS: BILIRUBIN,TOTAL 0.6 mg/dl (0.2-1.3); CALCIUM 8.8 mg/dL (8.4-10.2); POTASSIUM 4.5 MMOL/L (3.6-5.0); TOTAL PROTEIN 6.3 G/DL (6.3-8.2)
--- NOTE | 2017-05-18 13:52 | CP.PCM.PN ---
Subjective - Date & Time of Evaluation Date of Evaluation: 05/18/17 Time of Evaluation: 12:00 - Subjective Subjective: F/U Respiratory Failure. Pt awake, able to talk, follows commands, Pt's at bedside, no A/D. Objective - Vital Signs/Intake and Output Vital Signs (last 24 hours): Temp Pulse Resp BP Pulse Ox 97.9 F 86 22 100/65 97 05/18/17 12:00 05/18/17 12:00 05/18/17 12:00 05/18/17 12:00 05/18/17 12:00 - Medications Medications: Current Medications Docusate Sodium (Colace Liquid) 200 mg PO DAILY [facility] Last Admin: 05/18/17 09:45 Dose: 200 mg Famotidine (Pepcid) 20 mg PO BID [facility] Last Admin: 05/18/17 09:47 Dose: 20 mg Furosemide (Lasix) 20 mg PO BID [facility] Last Admin: 05/18/17 09:46 Dose: 20 mg Lamotrigine (Lamictal) 25 mg PO BID [facility] Last Admin: 05/18/17 09:46 Dose: 25 mg Metoprolol Tartrate (Lopressor) 25 mg PO Q12 [facility] Last Admin: 05/18/17 09:46 Dose: 25 mg Warfarin Sodium (Coumadin) 5 mg PO QD5 [facility] PRN Reason: Protocol Stop: 05/18/17 17:01 - Labs Labs: 05/18/17 06:30 05/18/17 06:30 PT 25.7 Seconds (9.8-13.1) H 05/18/17 06:30 INR 2.2 (0.9-1.2) H 05/18/17 06:30 APTT 26.3 Seconds (25.6-37.1) D 04/25/17 04:30 - Constitutional Appears: No Acute Distress - Head Exam Head Exam: NORMAL INSPECTION - Eye Exam Eye Exam: PERRL - ENT Exam ENT Exam: Normal Oropharynx - Neck Exam Neck Exam: Normal Inspection - Respiratory Exam Respiratory Exam: Decreased Breath Sounds (at bases) - Cardiovascular Exam Cardiovascular Exam: Irregular Rhythm - GI/Abdominal Exam GI & Abdominal Exam: Soft, Normal Bowel Sounds - Extremities Exam Extremities Exam: Normal Inspection - Back Exam Additional comments: L-S DTI - Neurological Exam Neurological Exam: Awake Additional comments: Follows commands, no focal motor sensory deficit, generalized weakness. - Psychiatric Exam Psychiatric exam: Normal Mood - Skin Skin Exam: Warm Assessment and Plan (1) Acute respiratory failure Status: Acute (2) Acute on chronic diastolic (congestive) heart failure Status: Acute (3) Pleural effusion Status: Acute (4) S/P thoracentesis Status: Acute (5) CANDELARIA (acute kidney injury) Status: Resolved (6) HTN (hypertension) Status: Chronic (7) A-fib Status: Chronic (8) Sleep apnea Status: Chronic (9) Lung nodule Status: Acute - Assessment and Plan (Free Text) Plan: O2 Sat. above 90 with NC, HR stable, continue current Tx.
--- NOTE | 2017-05-18 13:52 | CP.PCM.PN ---
Subjective - Date & Time of Evaluation Date of Evaluation: 05/17/17 Time of Evaluation: 12:00 - Subjective Subjective: This Progress Note is for 05-17-17. F/U respiratory failure. Pt awake, follows commands, no A/D, Pt's at bedside. Objective - Vital Signs/Intake and Output Vital Signs (last 24 hours): Temp Pulse Resp BP Pulse Ox 97.9 F 86 22 100/65 97 05/18/17 12:00 05/18/17 12:00 05/18/17 12:00 05/18/17 12:00 05/18/17 12:00 - Medications Medications: Current Medications Docusate Sodium (Colace Liquid) 200 mg PO DAILY [facility] Last Admin: 05/18/17 09:45 Dose: 200 mg Famotidine (Pepcid) 20 mg PO BID [facility] Last Admin: 05/18/17 09:47 Dose: 20 mg Furosemide (Lasix) 20 mg PO BID [facility] Last Admin: 05/18/17 09:46 Dose: 20 mg Lamotrigine (Lamictal) 25 mg PO BID [facility] Last Admin: 05/18/17 09:46 Dose: 25 mg Metoprolol Tartrate (Lopressor) 25 mg PO Q12 [facility] Last Admin: 05/18/17 09:46 Dose: 25 mg Warfarin Sodium (Coumadin) 5 mg PO QD5 [facility] PRN Reason: Protocol Stop: 05/18/17 17:01 - Labs Labs: 05/18/17 06:30 05/18/17 06:30 PT 25.7 Seconds (9.8-13.1) H 05/18/17 06:30 INR 2.2 (0.9-1.2) H 05/18/17 06:30 APTT 26.3 Seconds (25.6-37.1) D 04/25/17 04:30 - Constitutional Appears: No Acute Distress, Chronically Ill - Head Exam Head Exam: NORMAL INSPECTION - Eye Exam Eye Exam: PERRL - ENT Exam ENT Exam: Normal Oropharynx - Neck Exam Neck Exam: Normal Inspection - Respiratory Exam Respiratory Exam: Decreased Breath Sounds (at bases) - Cardiovascular Exam Cardiovascular Exam: REGULAR RHYTHM - GI/Abdominal Exam GI & Abdominal Exam: Soft, Normal Bowel Sounds - Extremities Exam Extremities Exam: Normal Inspection - Back Exam Additional comments: L-S DTI - Neurological Exam Neurological Exam: Awake Additional comments: Follows commands, generalized weakness, no focal motor sensory deficit. - Psychiatric Exam Psychiatric exam: Normal Mood - Skin Skin Exam: Warm Assessment and Plan (1) Acute respiratory failure Status: Acute (2) Acute on chronic diastolic (congestive) heart failure Status: Acute (3) Pleural effusion Status: Acute (4) S/P thoracentesis Status: Acute (5) CANDELARIA (acute kidney injury) Status: Resolved (6) HTN (hypertension) Status: Chronic (7) A-fib Status: Chronic (8) Sleep apnea Status: Chronic (9) Lung nodule Status: Acute - Assessment and Plan (Free Text) Plan: Pt tolerating well NC % L/M with good saturation since yesterday, continue current Tx.
[2017-05-19] MEDS ORDERED: Metoprolol 1 mg/ml Inj IVP ONE ×2 (01:28→18:44)
--- NOTE | 2017-05-19 15:27 | CP.PCM.PN ---
Subjective - Date & Time of Evaluation Date of Evaluation: 05/19/17 Time of Evaluation: 12:30 - Subjective Subjective: F/U Respiratory Failure. Pt sleeping now, last night did not sleep well and took out the BIPAP, has been all night and today on NC 5 L/M, Pt's at bedside. Objective - Vital Signs/Intake and Output Vital Signs (last 24 hours): Temp Pulse Resp BP Pulse Ox 98.2 F 109 H 20 115/73 100 05/19/17 08:00 05/19/17 09:00 05/19/17 08:00 05/19/17 08:42 05/19/17 08:00 Intake and Output: 05/19/17 05/19/17 06:59 18:59 Intake Total 70 Output Total 800 Balance -730 - Medications Medications: Current Medications Famotidine (Pepcid) 20 mg PO BID [facility] Last Admin: 05/19/17 08:41 Dose: 20 mg Furosemide (Lasix) 20 mg PO BID [facility] Last Admin: 05/19/17 08:42 Dose: 20 mg Lamotrigine (Lamictal) 25 mg PO BID [facility] Last Admin: 05/19/17 08:42 Dose: 25 mg Metoprolol Tartrate (Lopressor) 25 mg PO Q12 [facility] Last Admin: 05/19/17 08:37 Dose: 25 mg - Labs Labs: 05/18/17 06:30 05/18/17 06:30 PT 32.3 Seconds (9.8-13.1) H D 05/19/17 06:30 INR 2.8 (0.9-1.2) H D 05/19/17 06:30 APTT 26.3 Seconds (25.6-37.1) D 04/25/17 04:30 - Constitutional Appears: No Acute Distress, Chronically Ill - Head Exam Head Exam: NORMAL INSPECTION - Eye Exam Eye Exam: PERRL - ENT Exam ENT Exam: Normal Oropharynx - Neck Exam Neck Exam: Normal Inspection - Respiratory Exam Respiratory Exam: Decreased Breath Sounds (at bases) - Cardiovascular Exam Cardiovascular Exam: Irregular Rhythm - GI/Abdominal Exam GI & Abdominal Exam: Soft, Normal Bowel Sounds - Extremities Exam Extremities Exam: Normal Inspection - Back Exam Additional comments: L-S DTI - Neurological Exam Neurological Exam: Awake Additional comments: Follows commands, generalized weakness, no focal motor sensory deficit. - Psychiatric Exam Psychiatric exam: Normal Mood - Skin Skin Exam: Warm Assessment and Plan (1) Acute respiratory failure Status: Acute (2) Acute on chronic diastolic (congestive) heart failure Status: Acute (3) Pleural effusion Status: Acute (4) S/P thoracentesis Status: Acute (5) CANDELARIA (acute kidney injury) Status: Resolved (6) HTN (hypertension) Status: Chronic (7) A-fib Status: Chronic (8) Sleep apnea Status: Chronic (9) Lung nodule Status: Acute - Assessment and Plan (Free Text) Plan: Last night had a brief episode of increased HR Tx with Lopressor IV but, there after HR has been stable all night up to now, continue current Tx.
[2017-05-20] MEDS ORDERED: Metoprolol 1 mg/ml Inj IVP ONE (04:43)
[2017-05-20 06:37] LABS: HEMATOCRIT 35.6 % (35.0-51.0); MEAN CELL VOLUME 92.5 fl (80.0-94.0); MEAN CORPUSCULAR HEMOGLOBIN 31.2 pg (27.0-31.0); MEAN CORPUSCULAR HGB CONC 33.7 g/dL (33.0-37.0); RED CELL DISTRIBUTION WIDTH 15.7 % (11.5-14.5); WHITE BLOOD COUNT 8.1 K/uL (4.8-10.8)
[2017-05-20 08:04] LABS: ALB/GLOB RATIO 0.9 (1.0-2.1); BILIRUBIN,TOTAL 0.9 mg/dl (0.2-1.3); CALCIUM 8.8 mg/dL (8.4-10.2); POTASSIUM 4.7 MMOL/L (3.6-5.0); TOTAL PROTEIN 6.8 G/DL (6.3-8.2)
--- NOTE | 2017-05-20 10:01 | CP.PCM.PN ---
Subjective - Date & Time of Evaluation Date of Evaluation: 05/20/17 Time of Evaluation: 09:35 - Subjective Subjective: Drowsy, easily arousable, ate most of his breakfast In no distress, Breathes 18 BPM Telemetry shows A Fib at 120-130 BPM BP 124/70 mm Hg JVP flat, no sacral oedema No rales INR 2.9 (Ordered Warfarin) Dose of Metoprololm increased. Objective - Vital Signs/Intake and Output Vital Signs (last 24 hours): Temp Pulse Resp BP Pulse Ox 98.3 F 85 18 128/92 H 100 05/20/17 08:33 05/20/17 08:33 05/20/17 08:33 05/20/17 08:33 05/20/17 08:33 - Medications Medications: Current Medications Famotidine (Pepcid) 20 mg PO BID [facility] Last Admin: 05/19/17 16:28 Dose: 20 mg Furosemide (Lasix) 20 mg PO BID [facility] Last Admin: 05/19/17 16:29 Dose: 20 mg Lamotrigine (Lamictal) 25 mg PO BID [facility] Last Admin: 05/19/17 16:29 Dose: 25 mg Metoprolol Tartrate (Lopressor) 50 mg PO Q12 [facility] Warfarin Sodium (Coumadin) 1 mg PO QD5 [facility] PRN Reason: Protocol Stop: 05/20/17 17:01 - Labs Labs: 05/20/17 05:00 05/20/17 05:00 PT 33.2 Seconds (9.8-13.1) H 05/20/17 05:00 INR 2.9 (0.9-1.2) H 05/20/17 05:00 APTT 26.3 Seconds (25.6-37.1) D 04/25/17 04:30
--- NOTE | 2017-05-20 13:02 | RAD ---
HISTORY: HIGH HR, MD ORDERED COMPARISON: 05/08/2017 FINDINGS: The right PICC line terminates in the SVC. LUNGS: There are apparent nodular opacities in the right upper lobe and lower lobe. There is also airspace disease in the right lower lobe with haziness in both lower lobes. There is also persistent left lower lobe consolidation. PLEURA: There are bilateral moderate pleural effusions. CARDIOVASCULAR: Stable. OSSEOUS STRUCTURES: No significant abnormalities. VISUALIZED UPPER ABDOMEN: Normal. OTHER FINDINGS: None. IMPRESSION: 1. Apparent nodular opacities in the right lung , further characterization is difficult on portable radiograph. If clinically indicated, CT scan may be performed. Moderate bilateral pleural effusions and left lower lobe pneumonia.
[2017-05-20 14:56] LABS: URINE BILIRUBIN NEGATIVE (NEGATIVE); URINE BLOOD NEGATIVE (NEGATIVE); URINE COLOR YELLOW (YELLOW); URINE GLUCOSE (UA) NEG (Normal); URINE KETONE NEGATIVE (NEGATIVE); URINE LEUKOCYTE ESTERASE MOD Leu/uL (Negative); URINE PROTEIN NEGATIVE (NEGATIVE); URINE UROBILINOGEN 0.2-1.0 mg/dL (0.2-1.0); WBC URINE 24 /hpf (0-5)
--- NOTE | 2017-05-20 15:45 | CP.PCM.PN ---
Subjective - Date & Time of Evaluation Date of Evaluation: 05/20/17 Time of Evaluation: 10:00 - Subjective Subjective: F/U Respiratory Failure. Sleepy , arousable , pain in gland area, discharge as per his around Wang Objective - Vital Signs/Intake and Output Vital Signs (last 24 hours): Temp Pulse Resp BP Pulse Ox 98.3 F 128 H 20 111/80 95 05/20/17 15:37 05/20/17 15:37 05/20/17 15:37 05/20/17 15:37 05/20/17 15:37 - Medications Medications: Current Medications Famotidine (Pepcid) 20 mg PO BID [facility] Last Admin: 05/20/17 10:21 Dose: 20 mg Furosemide (Lasix) 20 mg PO BID [facility] Last Admin: 05/20/17 10:19 Dose: 20 mg Lamotrigine (Lamictal) 25 mg PO BID [facility] Last Admin: 05/20/17 10:19 Dose: 25 mg Metoprolol Tartrate (Lopressor) 50 mg PO Q12 [facility] Last Admin: 05/20/17 10:22 Dose: 50 mg Warfarin Sodium (Coumadin) 1 mg PO QD5 [facility] PRN Reason: Protocol Stop: 05/20/17 17:01 - Labs Labs: 05/20/17 05:00 05/20/17 05:00 PT 33.2 Seconds (9.8-13.1) H 05/20/17 05:00 INR 2.9 (0.9-1.2) H 05/20/17 05:00 APTT 26.3 Seconds (25.6-37.1) D 04/25/17 04:30 - Constitutional Appears: No Acute Distress, Chronically Ill - Head Exam Head Exam: NORMAL INSPECTION - Eye Exam Eye Exam: PERRL - ENT Exam ENT Exam: Normal Oropharynx - Neck Exam Neck Exam: Normal Inspection - Respiratory Exam Respiratory Exam: Decreased Breath Sounds (at bases) - Cardiovascular Exam Cardiovascular Exam: Irregular Rhythm - GI/Abdominal Exam GI & Abdominal Exam: Soft, Normal Bowel Sounds - Exam Additional comments: tenderness gland area around Wang Cath - Extremities Exam Extremities Exam: Normal Inspection - Back Exam Additional comments: L-S DTI - Neurological Exam Neurological Exam: Awake Additional comments: Sleepy arousable ,Follows commands, generalized weakness, no focal motor sensory deficit. - Psychiatric Exam Psychiatric exam: Normal Mood - Skin Skin Exam: Warm Assessment and Plan (1) Acute respiratory failure Status: Acute (2) Acute on chronic diastolic (congestive) heart failure Status: Acute (3) Pleural effusion Status: Acute (4) S/P thoracentesis Status: Acute (5) CANDELARIA (acute kidney injury) Status: Resolved (6) HTN (hypertension) Status: Chronic (7) A-fib Status: Chronic (8) Sleep apnea Status: Chronic (9) Lung nodule Status: Acute (10) Dysuria Status: Acute - Assessment and Plan (Free Text) Plan: Heart rate high , Lopressor increased to 50mg QID , C-S gland and U C-S , begin Levaquin, DC Folet Cath , monitor urine out put , continue Coumadin and rest of treatment
[2017-05-20] MEDS: levoFLOXacin 500 MG TAB PO SCH (23:00)
[2017-05-21] MEDS: AVODART 0.5 MG PO SCH (09:16)
--- NOTE | 2017-05-21 12:31 | CP.PCM.PN ---
Subjective - Date & Time of Evaluation Date of Evaluation: 05/21/17 Time of Evaluation: 11:40 - Subjective Subjective: Needed straight catheterisation following removal of Wang cath (approx 800Ml of urine was drained) Afebrile Neurologically unchanged HR mostly 110-120 BPM BP 126/76 mm Hg No signs of CHF INR 1.8 (Warfarin ordered) Metoprolol dose raised to 100 mg BID to manage HR Objective - Vital Signs/Intake and Output Vital Signs (last 24 hours): Temp Pulse Resp BP Pulse Ox 97.5 F L 83 18 134/82 100 05/21/17 08:25 05/21/17 09:15 05/21/17 08:25 05/21/17 09:15 05/21/17 08:25 Intake and Output: 05/21/17 05/21/17 06:59 18:59 Output Total 800 Balance -800 - Medications Medications: Current Medications Famotidine (Pepcid) 20 mg PO BID [facility] Last Admin: 05/21/17 09:14 Dose: 20 mg Furosemide (Lasix) 20 mg PO BID [facility] Last Admin: 05/21/17 09:14 Dose: 20 mg Home Med (Patient's Own Medication) 1 unit PO DAILY [facility] Last Admin: 05/21/17 09:16 Dose: 1 unit Lamotrigine (Lamictal) 25 mg PO BID [facility] Last Admin: 05/21/17 09:14 Dose: 25 mg Levofloxacin (Levaquin) 500 mg PO DAILY@2200 [facility] Last Admin: 05/20/17 23:00 Dose: 500 mg Metoprolol Tartrate (Lopressor) 100 mg PO Q12 [facility] Tamsulosin HCl (Flomax) 0.4 mg PO DAILY [facility] Warfarin Sodium (Coumadin) 2.5 mg PO QD5 [facility] PRN Reason: Protocol Stop: 05/21/17 17:01 - Labs Labs: 05/20/17 05:00 05/20/17 05:00 PT 20.4 Seconds (9.8-13.1) H D 05/21/17 05:00 INR 1.8 (0.9-1.2) H D 05/21/17 05:00 APTT 26.3 Seconds (25.6-37.1) D 04/25/17 04:30
--- NOTE | 2017-05-21 13:40 | CP.PCM.PN ---
Subjective - Date & Time of Evaluation Date of Evaluation: 05/21/17 Time of Evaluation: 11:30 - Subjective Subjective: F/U respiratory Failure. Pt awake, nurse is inserting straight Cath and is having good urine output, 800 ml, with minimal pain in the area, Pt's at bedside. Objective - Vital Signs/Intake and Output Vital Signs (last 24 hours): Temp Pulse Resp BP Pulse Ox 97.4 F L 82 18 134/82 100 05/21/17 13:00 05/21/17 13:00 05/21/17 13:00 05/21/17 09:15 05/21/17 13:00 Intake and Output: 05/21/17 05/21/17 06:59 18:59 Output Total 800 Balance -800 - Medications Medications: Current Medications Famotidine (Pepcid) 20 mg PO BID [facility] Last Admin: 05/21/17 09:14 Dose: 20 mg Furosemide (Lasix) 20 mg PO BID [facility] Last Admin: 05/21/17 09:14 Dose: 20 mg Home Med (Patient's Own Medication) 1 unit PO DAILY [facility] Last Admin: 05/21/17 09:16 Dose: 1 unit Lamotrigine (Lamictal) 25 mg PO BID [facility] Last Admin: 05/21/17 09:14 Dose: 25 mg Levofloxacin (Levaquin) 500 mg PO DAILY@2200 [facility] Last Admin: 05/20/17 23:00 Dose: 500 mg Metoprolol Tartrate (Lopressor) 100 mg PO Q12 [facility] Tamsulosin HCl (Flomax) 0.4 mg PO DAILY [facility] Last Admin: 05/21/17 12:34 Dose: Not Given Warfarin Sodium (Coumadin) 2.5 mg PO QD5 [facility] PRN Reason: Protocol Stop: 05/21/17 17:01 - Labs Labs: 05/20/17 05:00 05/20/17 05:00 PT 20.4 Seconds (9.8-13.1) H D 05/21/17 05:00 INR 1.8 (0.9-1.2) H D 05/21/17 05:00 APTT 26.3 Seconds (25.6-37.1) D 04/25/17 04:30 - Constitutional Appears: No Acute Distress, Chronically Ill - Head Exam Head Exam: NORMAL INSPECTION - Eye Exam Eye Exam: PERRL - ENT Exam ENT Exam: Normal Oropharynx - Neck Exam Neck Exam: Normal Inspection - Respiratory Exam Respiratory Exam: NORMAL BREATHING PATTERN - Cardiovascular Exam Cardiovascular Exam: Irregular Rhythm - GI/Abdominal Exam GI & Abdominal Exam: Soft, Normal Bowel Sounds. absent: Tenderness - Extremities Exam Additional comments: Edema L/E - Back Exam Additional comments: L-S DTI - Neurological Exam Neurological Exam: Awake Additional comments: Confused, Follows commands, generalized weakness, no focal motor sensory deficit. - Psychiatric Exam Additional comments: Calm - Skin Skin Exam: Warm Assessment and Plan (1) Acute respiratory failure Status: Acute (2) Acute on chronic diastolic (congestive) heart failure Status: Acute (3) Pleural effusion Status: Acute (4) S/P thoracentesis Status: Acute (5) CANDELARIA (acute kidney injury) Status: Resolved (6) HTN (hypertension) Status: Chronic (7) A-fib Status: Chronic (8) Sleep apnea Status: Chronic (9) Lung nodule Status: Acute (10) Dysuria Status: Acute - Assessment and Plan (Free Text) Plan: HR stable with Lopressor 1000 bid, on NC 5 L/M, Pt with BPH on Avodar, we start Flomax, Pt on Levaquin, f/u U C-S, f/u Urology consult.
--- NOTE | 2017-05-21 14:06 | CT ---
PROCEDURE: CT Chest without contrast HISTORY: pleural effusion, pneumonia Relevant interventional procedure(s): 05/09/2017 right thoracentesis with removal 1.4 L of fluid. 05/06/2017 thoracentesis with recovery of 1.2 L of fluid from the left pleural space COMPARISON: 04/16/2017. TECHNIQUE: Contiguous axial images were obtained through the chest without intravenous contrast enhancement. Sagittal and coronal reconstructions were performed. Radiation dose (DLP): 739.39 mGy-cm. This CT exam was performed using one or more of the following dose reduction techniques: Automated exposure control, adjustment of the mA and/or kV according to patient size, and/or use of iterative reconstruction technique. FINDINGS: LUNGS: Improved aeration of the lungs. Residual compressive atelectasis at both bases. MEDIASTINUM: Unremarkable thoracic aorta. No aneurysm. Stable cardiomegaly. Main pulmonary artery unremarkable. No vascular congestion. No lymphadenopathy. PLEURA: Decrease in bilateral pleural effusions. BONES: No fracture. No destructive lesion. UPPER ABDOMEN: Grossly unremarkable. OTHER FINDINGS: None. IMPRESSION: Persistent, decrease in bilateral pleural effusions. Improved aeration of the lungs. No underlying pulmonary abnormalities of consequence.
--- NOTE | 2017-05-21 16:05 | CP.PCM.CON ---
History of Present Illness - History of Present Illness History of Present Illness: urology called to see pt for recurrent retention following > 1 month of cath dependence. he hasv an outside urologist who has him on avodart. The folery was removed for yomaira cat purulent secretions. But since its removal he has been cath once already with 800 cc output. He has been started on p[o flomax and with family agreement he will undergo periodic intermittant straight cath in expectation that the flomax/avodart combo will help him void spontaneously Past Patient History - Infectious Disease Hx of Infectious Diseases: None - Past Medical History & Family History Past Medical History?: Yes - Past Social History Smoking Status: Never Smoked Alcohol: None Drugs: Denies Home Situation {Lives}: With Family - CARDIAC Hx Cardiac Disorders: Yes Hx Congestive Heart Failure: Yes Hx Hypertension: Yes - PULMONARY Hx Respiratory Disorders: Yes Hx Sleep Apnea: Yes - NEUROLOGICAL HX Cerebrovascular Accident: Yes ( denies) - HEENT Hx HEENT Problems: No - RENAL Hx Chronic Kidney Disease: No - ENDOCRINE/METABOLIC Hx Endocrine Disorders: No - HEMATOLOGICAL/ONCOLOGICAL Hx Blood Disorders: No Hx Human Immunodeficiency Virus (HIV): No - INTEGUMENTARY Hx Dermatological Problems: No - MUSCULOSKELETAL/RHEUMATOLOGICAL Hx Musculoskeletal Disorders: Yes Hx Falls: Yes Hx Unsteady Gait: Yes - GASTROINTESTINAL Hx Gastrointestinal Disorders: No - GENITOURINARY/GYNECOLOGICAL Hx Genitourinary Disorders: Yes Hx Incontinence: Yes Hx Prostate Problems: Yes (BPH) - PSYCHIATRIC Hx Psychophysiologic Disorder: Yes Hx Hallucinations: Yes Hx Substance Use: No - SURGICAL HISTORY Hx Surgeries: No - ANESTHESIA Hx Anesthesia: No Meds Allergies/Adverse Reactions: Allergies Allergy/AdvReac Type Severity Reaction Status Date / Time EGG AdvReac HEADACHE Verified 04/15/17 15:49 seafoods Allergy SWELLING Uncoded 04/15/17 10:02 - Medications Medications: Current Medications Famotidine (Pepcid) 20 mg PO BID [facility] Last Admin: 05/21/17 09:14 Dose: 20 mg Furosemide (Lasix) 20 mg PO BID [facility] Last Admin: 05/21/17 09:14 Dose: 20 mg Home Med (Patient's Own Medication) 1 unit PO DAILY [facility] Last Admin: 05/21/17 09:16 Dose: 1 unit Lamotrigine (Lamictal) 25 mg PO BID [facility] Last Admin: 05/21/17 09:14 Dose: 25 mg Levofloxacin (Levaquin) 500 mg PO DAILY@2200 [facility] Last Admin: 05/20/17 23:00 Dose: 500 mg Metoprolol Tartrate (Lopressor) 100 mg PO Q12 [facility] Tamsulosin HCl (Flomax) 0.4 mg PO DAILY [facility] Last Admin: 05/21/17 15:56 Dose: 0.4 mg Warfarin Sodium (Coumadin) 2.5 mg PO QD5 [facility] PRN Reason: Protocol Stop: 05/21/17 17:01 Results - Vital Signs Recent Vital Signs: Last Vital Signs Temp 98.2 F 05/21/17 15:44 Pulse 66 05/21/17 15:44 Resp 18 05/21/17 15:44 BP 127/82 05/21/17 15:44 Pulse Ox 97 05/21/17 15:44 - Labs Result Diagrams: 05/20/17 05:00 05/20/17 05:00 Labs: Laboratory Results - last 24 hr 05/21/17 05:00 PT 20.4 H D INR 1.8 H D
[2017-05-21] MEDS: levoFLOXacin 500 MG TAB PO SCH (22:32)
[2017-05-22 05:39] LABS: ABG ALLEN TEST YES; ARTERIAL BLOOD GAS HCO3 30.1 mmol/L (21-28); ARTERIAL BLOOD GAS MODE NASAL CANNULA; ARTERIAL BLOOD GAS O2 CAPACITY 15.7 mL/dL (16-24); ARTERIAL BLOOD GAS O2 CONTENT 15.5 ML/dL (15-23); ARTERIAL BLOOD GAS PH 7.49 (7.35-7.45); ARTERIAL BLOOD GAS PO2 97 mm/Hg (80-100); ARTERIAL BLOOD HGB O2 SAT 95.8 % (95.0-98.0); CARBOXYHEMOGLOBIN 1.5 % (0.5-1.5); HHB 1.3 % (0.0-5.0); METHEMOGLOBIN 1.4 % (0.0-3.0)
[2017-05-22 07:35] LABS: ALB/GLOB RATIO 0.9 (1.0-2.1); BILIRUBIN,TOTAL 0.6 mg/dl (0.2-1.3); CALCIUM 8.7 mg/dL (8.4-10.2); POTASSIUM 4.1 MMOL/L (3.6-5.0); TOTAL PROTEIN 6.3 G/DL (6.3-8.2)
[2017-05-22 07:47] LABS: HEMATOCRIT 33.8 % (35.0-51.0); MEAN CELL VOLUME 92.6 fl (80.0-94.0); MEAN CORPUSCULAR HEMOGLOBIN 31.2 pg (27.0-31.0); MEAN CORPUSCULAR HGB CONC 33.7 g/dL (33.0-37.0); RED CELL DISTRIBUTION WIDTH 16.1 % (11.5-14.5); WHITE BLOOD COUNT 5.2 K/uL (4.8-10.8)
[2017-05-22] MEDS: AVODART 0.5 MG PO SCH (08:57)
--- NOTE | 2017-05-22 09:28 | CP.PCM.PN ---
Subjective - Date & Time of Evaluation Date of Evaluation: 05/22/17 Time of Evaluation: 09:10 - Subjective Subjective: Pt being fed by his Quite awake, smiles readily and appears aware of his surroundings Afebrile A Fib at 90 BPM BP 106/70 mm Hg JVP flat, no pedal oedema ABGs show good oxygenation with normal CO2 level on FiO2 of 40% INR 2.0 (Warfarin ordered) Objective - Vital Signs/Intake and Output Vital Signs (last 24 hours): Temp Pulse Resp BP Pulse Ox 97.5 F L 70 18 118/73 98 05/22/17 08:21 05/22/17 08:56 05/22/17 08:21 05/22/17 08:56 05/22/17 08:21 - Medications Medications: Current Medications Famotidine (Pepcid) 20 mg PO BID [facility] Last Admin: 05/22/17 08:56 Dose: 20 mg Furosemide (Lasix) 20 mg PO BID [facility] Last Admin: 05/22/17 08:55 Dose: 20 mg Home Med (Patient's Own Medication) 1 unit PO DAILY [facility] Last Admin: 05/22/17 08:57 Dose: 1 unit Lamotrigine (Lamictal) 25 mg PO BID [facility] Last Admin: 05/22/17 08:55 Dose: 25 mg Levofloxacin (Levaquin) 500 mg PO DAILY@2200 [facility] Last Admin: 05/21/17 22:32 Dose: 500 mg Metoprolol Tartrate (Lopressor) 100 mg PO Q12 [facility] Last Admin: 05/22/17 08:56 Dose: 100 mg Tamsulosin HCl (Flomax) 0.4 mg PO DAILY [facility] Last Admin: 05/22/17 08:54 Dose: 0.4 mg Warfarin Sodium (Coumadin) 2.5 mg PO QD5 [facility] PRN Reason: Protocol Stop: 05/22/17 17:01 - Labs Labs: 05/22/17 06:40 05/22/17 06:40 PT 22.9 Seconds (9.8-13.1) H 05/22/17 06:40 INR 2.0 (0.9-1.2) H 05/22/17 06:40 APTT 26.3 Seconds (25.6-37.1) D 04/25/17 04:30
--- NOTE | 2017-05-22 12:32 | CP.PCM.PN ---
Subjective - Date & Time of Evaluation Date of Evaluation: 05/22/17 Time of Evaluation: 09:30 - Subjective Subjective: F/U Respiratory failure. Awake , complains of pain in gland area , Patient,s at bedside Objective - Vital Signs/Intake and Output Vital Signs (last 24 hours): Temp Pulse Resp BP Pulse Ox 97.3 F L 90 19 103/70 98 05/22/17 12:00 05/22/17 12:00 05/22/17 12:00 05/22/17 12:00 05/22/17 12:00 - Medications Medications: Current Medications Famotidine (Pepcid) 20 mg PO BID [facility] Last Admin: 05/22/17 08:56 Dose: 20 mg Furosemide (Lasix) 20 mg PO BID [facility] Last Admin: 05/22/17 08:55 Dose: 20 mg Home Med (Patient's Own Medication) 1 unit PO DAILY [facility] Last Admin: 05/22/17 08:57 Dose: 1 unit Lamotrigine (Lamictal) 25 mg PO BID [facility] Last Admin: 05/22/17 08:55 Dose: 25 mg Levofloxacin (Levaquin) 500 mg PO DAILY@2200 [facility] Last Admin: 05/21/17 22:32 Dose: 500 mg Metoprolol Tartrate (Lopressor) 100 mg PO Q12 [facility] Last Admin: 05/22/17 08:56 Dose: 100 mg Tamsulosin HCl (Flomax) 0.4 mg PO DAILY [facility] Last Admin: 05/22/17 08:54 Dose: 0.4 mg Warfarin Sodium (Coumadin) 2.5 mg PO QD5 [facility] PRN Reason: Protocol Stop: 05/22/17 17:01 - Labs Labs: 05/22/17 06:40 05/22/17 06:40 PT 22.9 Seconds (9.8-13.1) H 05/22/17 06:40 INR 2.0 (0.9-1.2) H 05/22/17 06:40 APTT 26.3 Seconds (25.6-37.1) D 04/25/17 04:30 - Constitutional Appears: No Acute Distress, Chronically Ill - Head Exam Head Exam: NORMAL INSPECTION - Eye Exam Eye Exam: PERRL - ENT Exam ENT Exam: Normal Oropharynx - Neck Exam Neck Exam: Normal Inspection - Respiratory Exam Respiratory Exam: NORMAL BREATHING PATTERN - Cardiovascular Exam Cardiovascular Exam: Irregular Rhythm - GI/Abdominal Exam GI & Abdominal Exam: Soft, Normal Bowel Sounds - Exam Additional comments: minimal tenderness gland area - Extremities Exam Additional comments: no edema - Back Exam Additional comments: L-S DTI - Neurological Exam Neurological Exam: Awake Additional comments: Follows commands,able to talk , generalized weakness, no focal motor sensory deficit. - Psychiatric Exam Additional comments: Calm. - Skin Skin Exam: Warm Assessment and Plan (1) Acute respiratory failure Status: Resolved (2) Acute on chronic diastolic (congestive) heart failure Status: Acute (3) Pleural effusion Status: Acute (4) S/P thoracentesis Status: Acute (5) CANDELARIA (acute kidney injury) Status: Resolved (6) HTN (hypertension) Status: Chronic (7) A-fib Status: Chronic (8) Sleep apnea Status: Chronic (9) Lung nodule Status: Acute (10) Dysuria Status: Acute - Assessment and Plan (Free Text) Plan: On NC 5 L/m with O2 sat above 90% , not using BIPAP at night with good O2 sat , dysuria , having urine out put after DC Wang , U C-S G+ cocci, continue Levaquin , A Fib with heart rate stable on Metropolol 100mg q 12hs, continue Coumadin and rest of treatment
[2017-05-22] MEDS: levoFLOXacin 500 MG TAB PO SCH (21:33)
[2017-05-22] MEDS ORDERED: Morphine 4 MG/ML VIAL IVP PRN (23:19)
[2017-05-23] MEDS: AVODART 0.5 MG PO SCH (09:06)
--- NOTE | 2017-05-23 14:28 | CP.PCM.PN ---
Subjective - Date & Time of Evaluation Date of Evaluation: 05/23/17 Time of Evaluation: 12:00 - Subjective Subjective: F/U Respiratory failure. Awake , Patient is asking when He is going home, no gland pain, Patient,s at bedside Objective - Vital Signs/Intake and Output Vital Signs (last 24 hours): Temp Pulse Resp BP Pulse Ox 97.4 F L 76 18 111/71 100 05/23/17 12:01 05/23/17 12:01 05/23/17 12:01 05/23/17 12:01 05/23/17 12:01 - Medications Medications: Current Medications Cadexomer Iodine (Iodosorb) 1 applic TOP DAILY [facility] Famotidine (Pepcid) 20 mg PO BID [facility] Last Admin: 05/23/17 09:06 Dose: 20 mg Furosemide (Lasix) 20 mg PO BID [facility] Last Admin: 05/23/17 09:15 Dose: 20 mg Home Med (Patient's Own Medication) 1 unit PO DAILY [facility] Last Admin: 05/23/17 09:06 Dose: 1 unit Lamotrigine (Lamictal) 25 mg PO BID [facility] Last Admin: 05/23/17 09:06 Dose: 25 mg Levofloxacin (Levaquin) 500 mg PO DAILY@2200 [facility] Last Admin: 05/22/17 21:33 Dose: 500 mg Metoprolol Tartrate (Lopressor) 100 mg PO Q12 [facility] Last Admin: 05/23/17 09:07 Dose: 100 mg Morphine Sulfate (Morphine) 2 mg IVP Q3 PRN PRN Reason: Pain, moderate (4-7) Phenazopyridine HCl (Pyridium) 200 mg PO TID [facility] Last Admin: 05/23/17 12:47 Dose: 200 mg Tamsulosin HCl (Flomax) 0.4 mg PO DAILY [facility] Last Admin: 05/23/17 09:06 Dose: 0.4 mg Warfarin Sodium (Coumadin) 2.5 mg PO QD5 [facility] PRN Reason: Protocol Stop: 05/23/17 17:01 - Labs Labs: 05/22/17 06:40 05/22/17 06:40 PT 26.9 Seconds (9.8-13.1) H 05/23/17 07:00 INR 2.3 (0.9-1.2) H 05/23/17 07:00 APTT 26.3 Seconds (25.6-37.1) D 04/25/17 04:30 - Constitutional Appears: No Acute Distress, Chronically Ill - Head Exam Head Exam: NORMAL INSPECTION - Eye Exam Eye Exam: PERRL - ENT Exam ENT Exam: Normal Oropharynx - Neck Exam Neck Exam: Normal Inspection - Respiratory Exam Respiratory Exam: NORMAL BREATHING PATTERN - Cardiovascular Exam Cardiovascular Exam: Irregular Rhythm - GI/Abdominal Exam GI & Abdominal Exam: Soft, Normal Bowel Sounds - Exam Additional comments: Minimal tenderness gland area. - Extremities Exam Extremities Exam: absent: Pedal Edema - Back Exam Additional comments: L-S DTI - Neurological Exam Neurological Exam: Awake Additional comments: Follows commands, able to talk, generalized weakness, no focal motor sensory deficit. - Psychiatric Exam Additional comments: Calm - Skin Skin Exam: Warm Assessment and Plan (1) Acute respiratory failure Status: Resolved (2) Acute on chronic diastolic (congestive) heart failure Status: Acute (3) Pleural effusion Status: Acute (4) S/P thoracentesis Status: Acute (5) CANDELARIA (acute kidney injury) Status: Resolved (6) HTN (hypertension) Status: Chronic (7) A-fib Status: Chronic (8) Sleep apnea Status: Chronic (9) Lung nodule Status: Acute (10) Dysuria Status: Acute - Assessment and Plan (Free Text) Plan: on N/C 5L/m, O2 sat stable,A fib rate controlled on Lopressor , monitor heart rate on PT, continue rest of treatment and PT
[2017-05-23] MEDS: Cadexomer Iodine 0.9% 40 APPLIC/40 G TUBE TOP SCH (14:59)
[2017-05-23] MEDS: levoFLOXacin 500 MG TAB PO SCH (21:41)
[2017-05-24] MEDS: AVODART 0.5 MG PO SCH (08:49)
[2017-05-24] MEDS: Cadexomer Iodine 0.9% 40 APPLIC/40 G TUBE TOP SCH (08:51)
[2017-05-24 09:37] VITALS: BMI 23.5
--- NOTE | 2017-05-24 15:45 | CP.PCM.PN ---
Subjective - Date & Time of Evaluation Date of Evaluation: 05/24/17 Time of Evaluation: 13:20 - Subjective Subjective: F/U: Respiratory Failure. Pt awake, talking with at bedside, asking to return home, doing well, HR stable. Objective - Vital Signs/Intake and Output Vital Signs (last 24 hours): Temp Pulse Resp BP Pulse Ox 97.6 F 80 18 130/63 100 05/24/17 08:21 05/24/17 08:49 05/24/17 08:21 05/24/17 08:49 05/24/17 08:21 - Medications Medications: Current Medications Cadexomer Iodine (Iodosorb) 1 applic TOP DAILY [facility] Last Admin: 05/24/17 08:51 Dose: 1 applic Famotidine (Pepcid) 20 mg PO BID [facility] Last Admin: 05/24/17 08:50 Dose: 20 mg Furosemide (Lasix) 20 mg PO BID [facility] Last Admin: 05/24/17 08:49 Dose: 20 mg Home Med (Patient's Own Medication) 1 unit PO DAILY [facility] Last Admin: 05/24/17 08:49 Dose: 1 unit Lamotrigine (Lamictal) 25 mg PO BID [facility] Last Admin: 05/24/17 08:51 Dose: 25 mg Levofloxacin (Levaquin) 500 mg PO DAILY@2200 [facility] Last Admin: 05/23/17 21:41 Dose: 500 mg Metoprolol Tartrate (Lopressor) 100 mg PO Q12 [facility] Last Admin: 05/24/17 08:49 Dose: 100 mg Morphine Sulfate (Morphine) 2 mg IVP Q3 PRN PRN Reason: Pain, moderate (4-7) Phenazopyridine HCl (Pyridium) 200 mg PO TID [facility] Last Admin: 05/24/17 13:19 Dose: 200 mg Tamsulosin HCl (Flomax) 0.4 mg PO DAILY [facility] Last Admin: 05/24/17 08:50 Dose: 0.4 mg Warfarin Sodium (Coumadin) 2.5 mg PO QD5 [facility] PRN Reason: Protocol Stop: 05/24/17 17:01 - Labs Labs: 05/22/17 06:40 05/22/17 06:40 PT 24.8 Seconds (9.8-13.1) H 05/24/17 06:40 INR 2.2 (0.9-1.2) H 05/24/17 06:40 APTT 26.3 Seconds (25.6-37.1) D 04/25/17 04:30 - Constitutional Appears: No Acute Distress, Other - Head Exam Head Exam: NORMAL INSPECTION - Eye Exam Eye Exam: PERRL - ENT Exam ENT Exam: Normal Oropharynx - Neck Exam Neck Exam: Normal Inspection - Respiratory Exam Respiratory Exam: NORMAL BREATHING PATTERN - Cardiovascular Exam Cardiovascular Exam: Irregular Rhythm - GI/Abdominal Exam GI & Abdominal Exam: Soft, Normal Bowel Sounds - Exam Additional comments: Minimal tenderness gland area - Extremities Exam Extremities Exam: Normal Inspection - Back Exam Additional comments: L-S DTI - Neurological Exam Additional comments: Follows commands, able to talk, generalized weakness, no focal motor sensory deficit. - Psychiatric Exam Psychiatric exam: Normal Mood - Skin Skin Exam: Warm Assessment and Plan (1) Acute respiratory failure Status: Resolved (2) Acute on chronic diastolic (congestive) heart failure Status: Acute (3) Pleural effusion Status: Acute (4) S/P thoracentesis Status: Acute (5) CANDELARIA (acute kidney injury) Status: Resolved (6) HTN (hypertension) Status: Chronic (7) A-fib Status: Chronic (8) Sleep apnea Status: Chronic (9) Lung nodule Status: Acute (10) Dysuria Status: Acute - Assessment and Plan (Free Text) Plan: Continue current Tx.
[2017-05-24] MEDS: levoFLOXacin 500 MG TAB PO SCH (21:37)
[2017-05-25] MEDS: Cadexomer Iodine 0.9% 40 APPLIC/40 G TUBE TOP SCH (08:59)
[2017-05-25] MEDS: AVODART 0.5 MG PO SCH (09:00)
--- NOTE | 2017-05-25 21:38 | CP.PCM.PN ---
Subjective - Date & Time of Evaluation Date of Evaluation: 05/25/17 Time of Evaluation: 11:45 - Subjective Subjective: F/U Respiratory Failure. Awake , no AD, N/C , Patieng asking when He is going home, Patient 's at bedside Objective - Vital Signs/Intake and Output Vital Signs (last 24 hours): Temp Pulse Resp BP Pulse Ox 97.6 F 87 18 117/61 97 05/25/17 20:51 05/25/17 20:51 05/25/17 20:51 05/25/17 20:51 05/25/17 20:51 - Medications Medications: Current Medications Cadexomer Iodine (Iodosorb) 1 applic TOP DAILY [facility] Last Admin: 05/25/17 08:59 Dose: 1 applic Famotidine (Pepcid) 20 mg PO BID [facility] Last Admin: 05/25/17 17:53 Dose: 20 mg Furosemide (Lasix) 20 mg PO BID [facility] Last Admin: 05/25/17 17:53 Dose: 20 mg Home Med (Patient's Own Medication) 1 unit PO DAILY [facility] Last Admin: 05/25/17 09:00 Dose: 1 unit Lamotrigine (Lamictal) 25 mg PO BID [facility] Last Admin: 05/25/17 17:54 Dose: 25 mg Levofloxacin (Levaquin) 500 mg PO DAILY@2200 [facility] Last Admin: 05/24/17 21:37 Dose: 500 mg Metoprolol Tartrate (Lopressor) 100 mg PO Q12 [facility] Last Admin: 05/25/17 08:59 Dose: 100 mg Morphine Sulfate (Morphine) 2 mg IVP Q3 PRN PRN Reason: Pain, moderate (4-7) Phenazopyridine HCl (Pyridium) 200 mg PO TID [facility] Last Admin: 05/25/17 17:53 Dose: 200 mg Tamsulosin HCl (Flomax) 0.4 mg PO DAILY [facility] Last Admin: 05/25/17 08:59 Dose: 0.4 mg - Labs Labs: 05/22/17 06:40 05/22/17 06:40 PT 22.5 Seconds (9.8-13.1) H 05/25/17 09:30 INR 2.0 (0.9-1.2) H 05/25/17 09:30 APTT 26.3 Seconds (25.6-37.1) D 04/25/17 04:30 - Constitutional Appears: No Acute Distress, Chronically Ill - Head Exam Head Exam: NORMAL INSPECTION - Eye Exam Eye Exam: PERRL - ENT Exam ENT Exam: Normal Oropharynx - Neck Exam Neck Exam: Normal Inspection - Respiratory Exam Respiratory Exam: NORMAL BREATHING PATTERN - Cardiovascular Exam Cardiovascular Exam: Irregular Rhythm - GI/Abdominal Exam GI & Abdominal Exam: Soft, Normal Bowel Sounds - Exam Additional comments: Minimal tenderness gland area - Extremities Exam Extremities Exam: Normal Inspection - Back Exam Additional comments: L-S DTI - Neurological Exam Neurological Exam: Awake Additional comments: Follows commands, able to talk, generalized weakness, no focal motor sensory deficit. - Psychiatric Exam Additional comments: Calm - Skin Skin Exam: Warm Assessment and Plan (1) Acute respiratory failure Status: Resolved (2) Acute on chronic diastolic (congestive) heart failure Status: Acute (3) Pleural effusion Status: Acute (4) S/P thoracentesis Status: Acute (5) CANDELARIA (acute kidney injury) Status: Resolved (6) HTN (hypertension) Status: Chronic (7) A-fib Status: Chronic (8) Sleep apnea Status: Chronic (9) Lung nodule Status: Acute (10) Dysuria Status: Acute - Assessment and Plan (Free Text) Plan: Patient on NC 3L /m, not using BIPAP at night with good O2 saturation, continue current treatment , Lasix ,Lasix , Lopressor , Coumadin and rest of treatment.
[2017-05-25] MEDS: levoFLOXacin 500 MG TAB PO SCH (21:54)
[2017-05-26] MEDS: Cadexomer Iodine 0.9% 40 APPLIC/40 G TUBE TOP SCH (08:54)
[2017-05-26] MEDS: AVODART 0.5 MG PO SCH (08:55)
--- NOTE | 2017-05-26 16:22 | CP.PCM.PN ---
Subjective - Date & Time of Evaluation Date of Evaluation: 05/26/17 Time of Evaluation: 13:35 - Subjective Subjective: F/U Respiratory Failure. No AD , N/C Patient is asking when He ia going home Objective - Vital Signs/Intake and Output Vital Signs (last 24 hours): Temp Pulse Resp BP Pulse Ox 98.4 F 71 18 118/69 98 05/26/17 15:58 05/26/17 15:58 05/26/17 15:58 05/26/17 16:18 05/26/17 15:58 - Medications Medications: Current Medications Cadexomer Iodine (Iodosorb) 1 applic TOP DAILY [facility] Last Admin: 05/26/17 08:54 Dose: 1 applic Famotidine (Pepcid) 20 mg PO BID [facility] Last Admin: 05/26/17 16:19 Dose: 20 mg Furosemide (Lasix) 20 mg PO BID [facility] Last Admin: 05/26/17 16:18 Dose: 20 mg Home Med (Patient's Own Medication) 1 unit PO DAILY [facility] Last Admin: 05/26/17 08:55 Dose: 1 unit Lamotrigine (Lamictal) 25 mg PO BID [facility] Last Admin: 05/26/17 16:18 Dose: 25 mg Levofloxacin (Levaquin) 500 mg PO DAILY@2200 [facility] Last Admin: 05/25/17 21:54 Dose: 500 mg Metoprolol Tartrate (Lopressor) 100 mg PO Q12 [facility] Last Admin: 05/26/17 08:55 Dose: 100 mg Morphine Sulfate (Morphine) 2 mg IVP Q3 PRN PRN Reason: Pain, moderate (4-7) Phenazopyridine HCl (Pyridium) 200 mg PO TID [facility] Last Admin: 05/26/17 16:19 Dose: 200 mg Tamsulosin HCl (Flomax) 0.4 mg PO DAILY [facility] Last Admin: 05/26/17 08:53 Dose: 0.4 mg Warfarin Sodium (Coumadin) 5 mg PO QD5 [facility] PRN Reason: Protocol Stop: 05/26/17 17:01 Last Admin: 05/26/17 16:18 Dose: 5 mg - Labs Labs: 05/22/17 06:40 05/22/17 06:40 PT 21.5 Seconds (9.8-13.1) H 05/26/17 05:30 INR 1.9 (0.9-1.2) H 05/26/17 05:30 APTT 26.3 Seconds (25.6-37.1) D 04/25/17 04:30 - Constitutional Appears: No Acute Distress, Chronically Ill - Head Exam Head Exam: NORMAL INSPECTION - Eye Exam Eye Exam: PERRL - ENT Exam ENT Exam: Normal Oropharynx - Neck Exam Neck Exam: Normal Inspection - Respiratory Exam Respiratory Exam: NORMAL BREATHING PATTERN - Cardiovascular Exam Cardiovascular Exam: Irregular Rhythm - GI/Abdominal Exam GI & Abdominal Exam: Soft, Normal Bowel Sounds - Exam Additional comments: Minimal tenderness gland area. - Extremities Exam Extremities Exam: Normal Inspection - Back Exam Additional comments: L-S DTI - Neurological Exam Neurological Exam: Awake Additional comments: Follows commands, able to talk, generalized weakness, no focal motor sensory deficit. - Psychiatric Exam Additional comments: Calm - Skin Skin Exam: Warm Assessment and Plan (1) Acute respiratory failure Status: Resolved (2) Acute on chronic diastolic (congestive) heart failure Status: Acute (3) Pleural effusion Status: Acute (4) S/P thoracentesis Status: Acute (5) CANDELARIA (acute kidney injury) Status: Resolved (6) HTN (hypertension) Status: Chronic (7) A-fib Status: Chronic (8) Sleep apnea Status: Chronic (9) Lung nodule Status: Acute (10) Dysuria Status: Acute - Assessment and Plan (Free Text) Plan: Continue N/C 5 L/m , Lasix , Lopressor , Coumadin and rest of treatment
[2017-05-26] MEDS: levoFLOXacin 500 MG TAB PO SCH (21:05)
--- NOTE | 2017-05-27 09:00 | CP.PCM.PN ---
Subjective - Date & Time of Evaluation Date of Evaluation: 05/27/17 Time of Evaluation: 08:40 - Subjective Subjective: Continues to make progress ever so slowly Afebrile A Fib at 80 BPM BP 108/68 mm Hg JVP flat, no pedal oedema, no sacral oedema Insp effort poor but no rales audible Will get INR today so Warfarin can be ordered. Objective - Vital Signs/Intake and Output Vital Signs (last 24 hours): Temp Pulse Resp BP Pulse Ox 96.9 F L 78 20 102/62 98 05/27/17 08:00 05/27/17 08:00 05/27/17 08:00 05/27/17 08:00 05/27/17 08:00 - Medications Medications: Current Medications Cadexomer Iodine (Iodosorb) 1 applic TOP DAILY [facility] Last Admin: 05/26/17 08:54 Dose: 1 applic Famotidine (Pepcid) 20 mg PO BID [facility] Last Admin: 05/26/17 16:19 Dose: 20 mg Furosemide (Lasix) 20 mg PO BID [facility] Last Admin: 05/26/17 16:18 Dose: 20 mg Home Med (Patient's Own Medication) 1 unit PO DAILY [facility] Last Admin: 05/26/17 08:55 Dose: 1 unit Lamotrigine (Lamictal) 25 mg PO BID [facility] Last Admin: 05/26/17 16:18 Dose: 25 mg Metoprolol Tartrate (Lopressor) 100 mg PO Q12 [facility] Last Admin: 05/26/17 21:06 Dose: 100 mg Phenazopyridine HCl (Pyridium) 200 mg PO TID [facility] Last Admin: 05/26/17 16:19 Dose: 200 mg Tamsulosin HCl (Flomax) 0.4 mg PO DAILY [facility] Last Admin: 05/26/17 08:53 Dose: 0.4 mg - Labs Labs: 05/22/17 06:40 05/22/17 06:40 PT 21.5 Seconds (9.8-13.1) H 05/26/17 05:30 INR 1.9 (0.9-1.2) H 05/26/17 05:30 APTT 26.3 Seconds (25.6-37.1) D 04/25/17 04:30
[2017-05-27] MEDS: Cadexomer Iodine 0.9% 40 APPLIC/40 G TUBE TOP SCH (09:39)
[2017-05-27] MEDS: AVODART 0.5 MG PO SCH (09:42)
--- NOTE | 2017-05-27 16:35 | CP.PCM.PN ---
Subjective - Date & Time of Evaluation Date of Evaluation: 05/27/17 Time of Evaluation: 10:45 - Subjective Subjective: F/U Respiratory Failure. Pt calm, eating with the help of his asking when is going home, no c/o, no A/ D. at bedside, Objective - Vital Signs/Intake and Output Vital Signs (last 24 hours): Temp Pulse Resp BP Pulse Ox 97.8 F 70 20 124/69 100 05/27/17 15:48 05/27/17 15:48 05/27/17 15:48 05/27/17 15:48 05/27/17 15:48 - Medications Medications: Current Medications Cadexomer Iodine (Iodosorb) 1 applic TOP DAILY [facility] Last Admin: 05/27/17 09:39 Dose: 1 applic Famotidine (Pepcid) 20 mg PO BID [facility] Last Admin: 05/27/17 09:40 Dose: 20 mg Furosemide (Lasix) 20 mg PO BID [facility] Last Admin: 05/27/17 09:41 Dose: 20 mg Home Med (Patient's Own Medication) 1 unit PO DAILY [facility] Last Admin: 05/27/17 09:42 Dose: 1 unit Lamotrigine (Lamictal) 25 mg PO BID [facility] Last Admin: 05/27/17 12:43 Dose: 25 mg Metoprolol Tartrate (Lopressor) 100 mg PO Q12 [facility] Last Admin: 05/27/17 09:41 Dose: 100 mg Phenazopyridine HCl (Pyridium) 200 mg PO TID [facility] Last Admin: 05/27/17 12:43 Dose: 200 mg Tamsulosin HCl (Flomax) 0.4 mg PO DAILY [facility] Last Admin: 05/27/17 09:40 Dose: 0.4 mg Warfarin Sodium (Coumadin) 3 mg PO QD5 [facility] PRN Reason: Protocol Stop: 05/27/17 17:01 - Labs Labs: 05/22/17 06:40 05/22/17 06:40 PT 23.3 Seconds (9.8-13.1) H 05/27/17 10:20 INR 2.0 (0.9-1.2) H 05/27/17 10:20 APTT 26.3 Seconds (25.6-37.1) D 04/25/17 04:30 - Constitutional Appears: No Acute Distress, Chronically Ill - Head Exam Head Exam: NORMAL INSPECTION - Eye Exam Eye Exam: PERRL - ENT Exam ENT Exam: Normal Oropharynx - Neck Exam Neck Exam: Normal Inspection - Respiratory Exam Respiratory Exam: NORMAL BREATHING PATTERN - Cardiovascular Exam Cardiovascular Exam: Irregular Rhythm - GI/Abdominal Exam GI & Abdominal Exam: Soft, Normal Bowel Sounds - Exam Additional comments: Minimal tenderness gland area. - Extremities Exam Extremities Exam: Normal Inspection - Back Exam Additional comments: L-S DTI - Neurological Exam Neurological Exam: Awake Additional comments: Follows commands, able to talk, generalized weakness, no focal motor sensory deficit. - Psychiatric Exam Additional comments: Calm - Skin Skin Exam: Warm Assessment and Plan (1) Acute respiratory failure Status: Resolved (2) Acute on chronic diastolic (congestive) heart failure Status: Acute (3) Pleural effusion Status: Acute (4) S/P thoracentesis Status: Acute (5) CANDELARIA (acute kidney injury) Status: Resolved (6) HTN (hypertension) Status: Chronic (7) A-fib Status: Chronic (8) Sleep apnea Status: Chronic (9) Lung nodule Status: Acute (10) Dysuria Status: Acute - Assessment and Plan (Free Text) Plan: Social Service just enter to the room to discussed with about further placement for MONICA., continue rest of treatment, NC 5 l/m . Lasix ,Lopressor , Coumadin and rest of treatment.
[2017-05-28] MEDS: AVODART 0.5 MG PO SCH (09:52)
[2017-05-28] MEDS: Cadexomer Iodine 0.9% 40 APPLIC/40 G TUBE TOP SCH (09:54)
--- NOTE | 2017-05-28 14:20 | CP.PCM.PN ---
Subjective - Date & Time of Evaluation Date of Evaluation: 05/28/17 Time of Evaluation: 11:20 - Subjective Subjective: F/U Respiratory failure. no AD , awake , asking when He is going to be at home Objective - Vital Signs/Intake and Output Vital Signs (last 24 hours): Temp Pulse Resp BP Pulse Ox 97.3 F L 73 18 107/57 L 100 05/28/17 12:08 05/28/17 12:08 05/28/17 12:08 05/28/17 12:08 05/28/17 12:08 - Medications Medications: Current Medications Cadexomer Iodine (Iodosorb) 1 applic TOP DAILY [facility] Last Admin: 05/28/17 09:54 Dose: 1 applic Famotidine (Pepcid) 20 mg PO BID [facility] Last Admin: 05/28/17 09:53 Dose: 20 mg Furosemide (Lasix) 20 mg PO BID [facility] Last Admin: 05/28/17 09:53 Dose: 20 mg Home Med (Patient's Own Medication) 1 unit PO DAILY [facility] Last Admin: 05/28/17 09:52 Dose: 1 unit Lamotrigine (Lamictal) 25 mg PO BID [facility] Last Admin: 05/28/17 09:54 Dose: 25 mg Metoprolol Tartrate (Lopressor) 100 mg PO Q12 [facility] Last Admin: 05/28/17 09:53 Dose: 100 mg Phenazopyridine HCl (Pyridium) 200 mg PO TID [facility] Last Admin: 05/28/17 13:32 Dose: 200 mg Tamsulosin HCl (Flomax) 0.4 mg PO DAILY [facility] Last Admin: 05/28/17 09:54 Dose: 0.4 mg Warfarin Sodium (Coumadin) 2.5 mg PO QD5 [facility] PRN Reason: Protocol Stop: 05/28/17 17:01 - Labs Labs: 05/22/17 06:40 05/22/17 06:40 PT 23.9 Seconds (9.8-13.1) H 05/28/17 09:20 INR 2.1 (0.9-1.2) H 05/28/17 09:20 APTT 26.3 Seconds (25.6-37.1) D 04/25/17 04:30 - Constitutional Appears: No Acute Distress, Chronically Ill - Eye Exam Eye Exam: PERRL - ENT Exam ENT Exam: Normal Oropharynx - Neck Exam Neck Exam: Normal Inspection - Respiratory Exam Respiratory Exam: NORMAL BREATHING PATTERN - Cardiovascular Exam Cardiovascular Exam: Irregular Rhythm - GI/Abdominal Exam GI & Abdominal Exam: Soft, Normal Bowel Sounds - Exam Additional comments: no tenderness gland area - Extremities Exam Additional comments: no edema - Back Exam Additional comments: L-S DTI - Neurological Exam Neurological Exam: Awake Additional comments: Follows commands, able to talk, generalized weakness, no focal motor sensory deficit. - Psychiatric Exam Psychiatric exam: Normal Mood - Skin Skin Exam: Warm Assessment and Plan (1) Acute respiratory failure Status: Resolved (2) Acute on chronic diastolic (congestive) heart failure Status: Chronic (3) Pleural effusion Status: Resolved (4) S/P thoracentesis Status: Acute (5) CANDELARIA (acute kidney injury) Status: Resolved (6) HTN (hypertension) Status: Chronic (7) A-fib Status: Chronic (8) Sleep apnea Status: Chronic (9) Lung nodule Status: Acute (10) Dysuria Status: Resolved - Assessment and Plan (Free Text) Plan: Continue Coumadin , Metropolol , Lasix and rest of medications , Social Service working in the process to transfer Patient to [facility]
[2017-05-29] MEDS: AVODART 0.5 MG PO SCH (08:50)
[2017-05-29] MEDS: Cadexomer Iodine 0.9% 40 APPLIC/40 G TUBE TOP SCH (08:53)
--- NOTE | 2017-05-29 13:33 | CP.PCM.PN ---
Subjective - Date & Time of Evaluation Date of Evaluation: 05/29/17 Time of Evaluation: 11:00 - Subjective Subjective: F/U Respiratory Failure. Pt with no A/D, talking, family at bedside. Objective - Vital Signs/Intake and Output Vital Signs (last 24 hours): Temp Pulse Resp BP Pulse Ox 97.8 F 74 18 104/66 97 05/29/17 12:29 05/29/17 12:29 05/29/17 12:29 05/29/17 12:29 05/29/17 12:29 - Medications Medications: Current Medications Cadexomer Iodine (Iodosorb) 1 applic TOP DAILY [facility] Last Admin: 05/29/17 08:53 Dose: 1 applic Famotidine (Pepcid) 20 mg PO BID [facility] Last Admin: 05/29/17 08:50 Dose: 20 mg Furosemide (Lasix) 20 mg PO BID [facility] Last Admin: 05/29/17 08:51 Dose: 20 mg Home Med (Patient's Own Medication) 1 unit PO DAILY [facility] Last Admin: 05/29/17 08:50 Dose: 1 unit Lamotrigine (Lamictal) 25 mg PO BID [facility] Last Admin: 05/29/17 08:49 Dose: 25 mg Metoprolol Tartrate (Lopressor) 100 mg PO Q12 [facility] Last Admin: 05/29/17 08:52 Dose: 100 mg Tamsulosin HCl (Flomax) 0.4 mg PO DAILY [facility] Last Admin: 05/29/17 08:50 Dose: 0.4 mg Warfarin Sodium (Coumadin) 2.5 mg PO QD5 [facility] PRN Reason: Protocol Stop: 05/29/17 17:01 - Labs Labs: 05/22/17 06:40 05/22/17 06:40 PT 24.0 Seconds (9.8-13.1) H 05/29/17 06:50 INR 2.1 (0.9-1.2) H 05/29/17 06:50 APTT 26.3 Seconds (25.6-37.1) D 04/25/17 04:30 - Constitutional Appears: No Acute Distress, Chronically Ill - Head Exam Head Exam: NORMAL INSPECTION - Eye Exam Eye Exam: PERRL - ENT Exam ENT Exam: Normal Oropharynx - Neck Exam Neck Exam: Normal Inspection - Respiratory Exam Respiratory Exam: NORMAL BREATHING PATTERN - Cardiovascular Exam Cardiovascular Exam: Irregular Rhythm - GI/Abdominal Exam GI & Abdominal Exam: Soft, Normal Bowel Sounds - Extremities Exam Extremities Exam: Normal Inspection - Neurological Exam Neurological Exam: Alert, Awake Additional comments: Able to talk, follows commands, generalized weakness, no focal motor sensory deficit. - Psychiatric Exam Psychiatric exam: Normal Mood - Skin Skin Exam: Warm Assessment and Plan (1) Acute respiratory failure Status: Acute (2) Acute on chronic diastolic (congestive) heart failure Status: Chronic (3) Pleural effusion Status: Acute (4) S/P thoracentesis Status: Acute (5) CANDELARIA (acute kidney injury) Status: Acute (6) HTN (hypertension) Status: Chronic (7) A-fib Status: Chronic (8) Sleep apnea Status: Chronic (9) Lung nodule Status: Acute (10) Dysuria Status: Resolved - Assessment and Plan (Free Text) Plan: Social Service working with Insurance for approval to transferring Patient to [facility].
[2017-05-30 05:03] VITALS: TEMP 97.7
[2017-05-30 08:11] VITALS: BP 141/74; PULSE 80; RESP 18; O2SAT 98
[2017-05-30] MEDS: Cadexomer Iodine 0.9% 40 APPLIC/40 G TUBE TOP SCH (08:58)
[2017-05-30] MEDS: AVODART 0.5 MG PO SCH (09:00)
--- NOTE | 2017-06-26 12:33 | CP.PCM.DIS ---
Provider - Provider Date of Admission: 04/15/17 11:51 Attending physician: Abhi Escamilla MD Consults: Nephrology and Urology. Time Spent in preparation of Discharge (in minutes): 25 Diagnosis - Discharge Diagnosis (1) Acute respiratory failure Status: Acute Priority: High (2) Acute on chronic diastolic (congestive) heart failure Status: Chronic Priority: High (3) Pleural effusion Status: Acute (4) S/P thoracentesis Status: Acute (5) CANDELARIA (acute kidney injury) Status: Acute Priority: High (6) HTN (hypertension) Status: Chronic Priority: High (7) A-fib Status: Chronic Priority: High (8) Sleep apnea Status: Chronic (9) Lung nodule Status: Acute (10) Dysuria Status: Resolved Hospital Course - Lab Results Lab Results: Micro Results 05/20/17 12:00 Urine,Wang Urine Culture - Final Coagulase Neg Staphylococcus 05/09/17 06:50 Nose MRSA Culture (Admit) - Final MRSA NOT DETECTED 04/27/17 17:00 Sputum Induced Gram Stain - Final 04/27/17 17:00 Sputum Induced Sputum Culture - Final NORMAL ORAL OTONIEL 04/15/17 20:02 Nose MRSA Culture (Admit) - Final MRSA NOT DETECTED Most Recent Lab Values WBC 5.2 K/uL (4.8-10.8) 05/22/17 06:40 RBC 3.64 Mil/uL (4.40-5.90) L 05/22/17 06:40 Hgb 11.4 g/dL (12.0-18.0) L 05/22/17 06:40 Hct 33.8 % (35.0-51.0) L 05/22/17 06:40 MCV 92.6 fl (80.0-94.0) 05/22/17 06:40 MCH 31.2 pg (27.0-31.0) H 05/22/17 06:40 MCHC 33.7 g/dL (33.0-37.0) 05/22/17 06:40 RDW 16.1 % (11.5-14.5) H 05/22/17 06:40 Plt Count 334 K/uL (130-400) 05/22/17 06:40 MPV 7.2 fl (7.2-11.7) 05/18/17 06:30 Neut % (Auto) 60.6 % (50.0-75.0) 05/18/17 06:30 Lymph % (Auto) 21.8 % (20.0-40.0) 05/18/17 06:30 [place] % (Auto) 13.9 % (0.0-10.0) H 05/18/17 06:30 Eos % (Auto) 3.1 % (0.0-4.0) 05/18/17 06:30 Baso % (Auto) 0.6 % (0.0-2.0) 05/18/17 06:30 Neut # 3.1 K/uL (1.8-7.0) 05/18/17 06:30 Lymph # 1.1 K/uL (1.0-4.3) 05/18/17 06:30 [place] # 0.7 K/uL (0.0-0.8) 05/18/17 06:30 Eos # 0.2 K/uL (0.0-0.7) 05/18/17 06:30 Baso # 0.0 K/uL (0.0-0.2) 05/18/17 06:30 Neutrophils % (Manual) 95 % (42-75) H 04/23/17 04:15 Lymphocytes % (Manual) 2 % (20-50) L 04/23/17 04:15 Monocytes % (Manual) 3 % (0-10) 04/23/17 04:15 Eosinophils % (Manual) 2 % (0-7) 04/20/17 05:30 Toxic Granulation Present 04/23/17 04:15 Platelet Estimate Normal (NORMAL) 04/23/17 04:15 Hypochromasia (manual) Slight 04/20/17 05:30 Anisocytosis (manual) Slight 04/23/17 04:15 PT 23.5 Seconds (9.8-13.1) H 05/30/17 05:00 INR 2.1 (0.9-1.2) H 05/30/17 05:00 APTT 26.3 Seconds (25.6-37.1) D 04/25/17 04:30 pCO2 40 mm/Hg (35-45) 05/22/17 05:14 pO2 97 mm/Hg (80-100) 05/22/17 05:14 HCO3 30.1 mmol/L (21-28) H 05/22/17 05:14 ABG pH 7.49 (7.35-7.45) H 05/22/17 05:14 ABG Total CO2 31.7 mmol/L (22-28) H 05/22/17 05:14 ABG O2 Saturation 98.7 % (95-98) H 05/22/17 05:14 ABG O2 Content 15.5 ML/dL (15-23) 05/22/17 05:14 ABG Base Excess 6.6 mmol/L (-2.0-3.0) H 05/22/17 05:14 ABG Hemoglobin 11.4 g/dL (11.7-17.4) L 05/22/17 05:14 ABG Carboxyhemoglobin 1.5 % (0.5-1.5) 05/22/17 05:14 POC ABG HHb (Measured) 1.3 % (0.0-5.0) 05/22/17 05:14 ABG Methemoglobin 1.4 % (0.0-3.0) 05/22/17 05:14 ABG O2 Capacity 15.7 mL/dL (16-24) L 05/22/17 05:14 Broderick Test Yes 05/22/17 05:14 ABG Potassium 4.3 mmol/L (3.6-5.2) 04/23/17 08:05 VBG pH 7.28 (7.32-7.43) L 05/02/17 01:46 VBG pCO2 64 mmHg (40-60) H 05/02/17 01:46 VBG HCO3 25.8 mmol/L 05/02/17 01:46 VBG O2 Sat (Calc) 77.8 % (40-65) H 05/02/17 01:46 VBG Base Excess 1.8 mmol/L (0.0-2.0) 05/02/17 01:46 A-a O2 Difference 138.0 mm/Hg 05/22/17 05:14 Hgb O2 Saturation 95.8 % (95.0-98.0) 05/22/17 05:14 Sodium 144.0 mmol/L (132-148) 04/23/17 08:05 Chloride 108.0 mmol/L (98-107) H 04/23/17 08:05 Glucose 174 mg/dL (75-110) H 04/23/17 08:05 Lactate 1.6 mmol/L (0.7-2.1) 04/23/17 08:05 Liter Flow 20 05/04/17 10:09 Vent Mode Nasal cannula 05/22/17 05:14 Mechanical Rate 18 04/27/17 04:38 FiO2 40.0 % 05/22/17 05:14 Tidal Volume 500 04/21/17 06:00 PEEP 5 04/21/17 06:00 Inspiratory BiPAP 16 04/27/17 04:38 Expiratory BiPAP 10 04/27/17 04:38 Blood Gas Comments Hig flw 20l/m.50% 05/05/17 09:24 Crit Value Read Back N 05/05/17 09:24 Sodium 137 mmol/l (132-148) 05/22/17 06:40 Potassium 4.1 MMOL/L (3.6-5.0) 05/22/17 06:40 Chloride 99 mmol/L (98-107) 05/22/17 06:40 Carbon Dioxide 31 mmol/L (22-30) H 05/22/17 06:40 Anion Gap 11 (10-20) 05/22/17 06:40 BUN 36 mg/dl (9-20) H 05/22/17 06:40 Creatinine 1.5 mg/dL (0.8-1.5) 05/22/17 06:40 Est GFR ( Amer) 55 05/22/17 06:40 Est GFR (Non-Af Amer) 45 05/22/17 06:40 POC Glucose (mg/dL) 130 mg/dL (65-110) H 04/28/17 21:51 Random Glucose 99 mg/dL (75-110) 05/22/17 06:40 Lactic Acid 1.5 MMOL/L (0.7-2.1) 04/25/17 04:30 Calcium 8.7 mg/dL (8.4-10.2) 05/22/17 06:40 Phosphorus 4.8 mg/dl (2.5-4.5) H 04/16/17 10:37 Magnesium 2.0 MG/DL (1.6-2.3) 04/16/17 10:37 Total Bilirubin 0.6 mg/dl (0.2-1.3) 05/22/17 06:40 AST 18 U/L (17-59) 05/22/17 06:40 ALT 23 U/L (21-72) 05/22/17 06:40 Alkaline Phosphatase 93 U/L (38-126) 05/22/17 06:40 Troponin I 0.0660 ng/mL (0.00-0.120) 04/15/17 10:20 NT-Pro-B Natriuret Pep 9590 pg/ml (0-900) H 04/15/17 10:20 Total Protein 6.3 G/DL (6.3-8.2) 05/22/17 06:40 Albumin 3.0 g/dL (3.5-5.0) L 05/22/17 06:40 Globulin 3.3 gm/dL (2.2-3.9) 05/22/17 06:40 Albumin/Globulin Ratio 0.9 (1.0-2.1) L 05/22/17 06:40 TSH 3rd Generation 2.50 mIU/ML (0.46-4.68) 04/16/17 10:37 Arterial Blood Potassium 4.3 mmol/L (3.6-5.2) 04/23/17 08:05 Urine Color Yellow (YELLOW) 05/20/17 14:38 Urine Clarity Clear (Clear) 05/20/17 14:38 Urine pH 6.0 (5.0-8.0) 05/20/17 14:38 Ur Specific [place] 1.013 (1.003-1.030) 05/20/17 14:38 Urine Protein Negative mg/dL (NEGATIVE) 05/20/17 14:38 Urine Glucose (UA) Neg mg/dL (Normal) 05/20/17 14:38 Urine Ketones Negative mg/dL (NEGATIVE) 05/20/17 14:38 Urine Blood Negative (NEGATIVE) 05/20/17 14:38 Urine Nitrate Negative (NEGATIVE) 05/20/17 14:38 Urine Bilirubin Negative (NEGATIVE) 05/20/17 14:38 Urine Urobilinogen 0.2-1.0 mg/dL (0.2-1.0) 05/20/17 14:38 Ur Leukocyte Esterase Mod Cristal/uL (Negative) 05/20/17 14:38 Urine Microscopic WBC 24 /hpf (0-5) H 05/20/17 14:38 Ur Random Creatinine 61.8 mg/dL 04/15/17 20:02 Ur Random Sodium 37 meq/L 04/15/17 20:10 Ur Random Potassium 43.1 mmol/L 04/15/17 20:10 Urine Creatinine 78 mg/dL (20-370) 04/15/17 20:02 Urine Microalbumin 70.1 mg/dL 04/15/17 20:02 Microalb/Creat Ratio 902 (<30) H 04/15/17 20:02 Fluid Source Pleural 04/19/17 17:48 Fluid Appearance Sl cloudy (CLEAR) 04/19/17 17:48 Fluid WBC 190.0 /mm3 (0.0-300.0) 04/19/17 17:48 Fluid RBC 1160.0 /mm3 (0.0-0.0) H 04/19/17 17:48 Fluid Tot Cell Count 100 (0-0) H 04/19/17 17:48 Fluid Neutrophils 63.0 % (0-0) H 04/19/17 17:48 Fluid Lymphocytes 13.0 % (0-0) H 04/19/17 17:48 Fld Monocyte/Macrophag 24 % (0-0) H 04/19/17 17:48 Fluid Glucose 115 mg/dL (NONE ESTABLISHED) 04/19/17 17:48 Fluid Total Protein 2.4 g/dL (NONE ESTABLISHED) 04/19/17 17:48 Fluid LDH 463 IU (NONE ESTABLISHED) 04/19/17 17:48 Fluid Comment Na 04/19/17 17:48 Digoxin 1.6 ng/mL (0.8-2.0) 04/20/17 05:30 Levetiracetam <1.0 mcg/mL 04/15/17 10:20 Blood Type O POSITIVE 04/17/17 13:10 Blood Type Confirm O POSITIVE 04/17/17 16:29 Antibody Screen Negative 04/17/17 13:10 BBK History Checked No verified bt 04/17/17 13:10 - Date & Time of H&P Date of H&P: 04/15/17 Time of H&P: 15:00 Discharge Exam - Head Exam Head Exam: NORMAL INSPECTION Discharge Plan - Follow Up Plan Condition: CRITICAL Disposition: TRANSF TO SNF Instructions: Heart Failure (DC)
== END 2017-05-30 11:24 | DRG 207 ==
LOC: H.ER 09:10 → H.ERHOLD 11:51 → H.ICU/CCU 13:09 → H.TEL 05-09 10:05
PROVIDERS: ADMIT Internal Medicine Pulmonary Disease; ATTEND Internal Medicine Pulmonary Disease
PROC: 06HN33Z Insertion of Infusion Device into Left Femoral Vein, Percutaneous Approach (ICD-10-PCS; principal; 2017-04-15)
PROC: 5A1955Z Respiratory Ventilation, Greater than 96 Consecutive Hours (ICD-10-PCS; 2017-04-15)
PROC: 0BH17EZ Insertion of Endotracheal Airway into Trachea, Via Natural or Artificial Opening (ICD-10-PCS; 2017-04-15)
PROC: 30233K1 Transfusion of Nonautologous Frozen Plasma into Peripheral Vein, Percutaneous Approach (ICD-10-PCS; 2017-04-17)
PROC: 0W993ZZ Drainage of Right Pleural Cavity, Percutaneous Approach (ICD-10-PCS; 2017-04-19)
PROC: 0W9B3ZZ Drainage of Left Pleural Cavity, Percutaneous Approach (ICD-10-PCS; 2017-04-23)
PROC: 0W993ZZ Drainage of Right Pleural Cavity, Percutaneous Approach (ICD-10-PCS; 2017-04-24)
PROC: 02HV33Z Insertion of Infusion Device into Superior Vena Cava, Percutaneous Approach (ICD-10-PCS; 2017-04-24)
PROC: 0W9B3ZZ Drainage of Left Pleural Cavity, Percutaneous Approach (ICD-10-PCS; 2017-05-06)
PROC: 0W993ZZ Drainage of Right Pleural Cavity, Percutaneous Approach (ICD-10-PCS; 2017-05-08)
DX: J96.01 Acute respiratory failure with hypoxia (principal); J69.0 Pneumonitis due to inhalation of food and vomit; I50.33 Acute on chronic diastolic (congestive) heart failure; G93.41 Metabolic encephalopathy; J90 Pleural effusion, not elsewhere classified; N17.9 Acute kidney failure, unspecified; E87.0 Hyperosmolality and hypernatremia; N18.4 Chronic kidney disease, stage 4 (severe); Z99.11 Dependence on respirator [ventilator] status; I13.0 Hypertensive heart and chronic kidney disease with heart failure and stage 1 through stage 4 chronic kidney disease, or unspecified chronic kidney disease; J98.11 Atelectasis; E87.3 Alkalosis; J96.02 Acute respiratory failure with hypercapnia; E86.0 Dehydration; I48.2 Chronic atrial fibrillation; G47.33 Obstructive sleep apnea (adult) (pediatric); G40.909 Epilepsy, unspecified, not intractable, without status epilepticus; I25.10 Atherosclerotic heart disease of native coronary artery without angina pectoris; I34.0 Nonrheumatic mitral (valve) insufficiency; Z86.73 Personal history of transient ischemic attack (TIA), and cerebral infarction without residual deficits; Z79.01 Long term (current) use of anticoagulants; Z91.012 Allergy to eggs; Z91.013 Allergy to seafood; R91.1 Solitary pulmonary nodule; D63.8 Anemia in other chronic diseases classified elsewhere; G30.9 Alzheimer's disease, unspecified; F02.80 Dementia in other diseases classified elsewhere, unspecified severity, without behavioral disturbance, psychotic disturbance, mood disturbance, and anxiety; I48.0 Paroxysmal atrial fibrillation; J40 Bronchitis, not specified as acute or chronic; R00.1 Bradycardia, unspecified; R30.0 Dysuria; R33.9 Retention of urine, unspecified; N40.0 Benign prostatic hyperplasia without lower urinary tract symptoms

== ENCOUNTER 2017-09-23 07:26 | Inpatient (IN) | payer MEDICARE ==
--- NOTE | 2017-09-23 07:58 | ED PDOC ---
HPI: Altered Mental Status Time Seen by Provider: 09/23/17 07:29 Chief Complaint (Nursing): Altered Mental Status Chief Complaint (Provider): Altered Mental Status History Per: EMS, Family () History/Exam Limitations: Clinical Condition Onset/Duration Of Symptoms: Days (x 2) Current Symptoms Are (Timing): Still Present Additional Complaint(s): Jerome is a 77 year old male who was brought by EMS along with his to the Emergency Department. Per , she was told by Dr. Escamilla to come to ED for "observation". She states that he has been on antibiotics for cough for 2 days. Per , hallucination secondary to antibiotics. PMD: Dr. Escamilla Past Medical History Reviewed: Historical Data, Nursing Documentation, Vital Signs Vital Signs: Last Vital Signs Temp Pulse Resp BP Pulse Ox 98 09/23/17 07:33 - Medical History PMH: Atrial Fibrillation, CHF, CVA, HTN, Peripheral Edema, Seizures, Sleep Apnea , TIA Denies: HIV, Chronic Kidney Disease - Family History Family History: States: Unknown Family Hx - Home Medications Home Medications: Ambulatory Orders Medication Instructions Recorded Dutasteride [Avodart] 0.5 mg PO DAILY 12/14/16 lamoTRIgine [Lamictal] 25 mg PO DAILY 04/15/17 Ascorbic Acid [Vitamin C 500 mg 1 tab PO DAILY 09/23/17 Tab] Digoxin [Lanoxin] 0.0625 mg PO DAILY 09/23/17 Diltiazem HCl [Cardizem LA] 360 mg PO DAILY 09/23/17 Furosemide [Lasix] 40 mg PO DAILY 09/23/17 Metoprolol Succinate [Toprol XL] 25 mg PO DAILY 09/23/17 Mv,Min10/Folic Acid/D3/Ala/Lut 1 tab PO DAILY 09/23/17 [Strovite One Caplet] Vitamin E [Vitamin E] 1 cap PO DAILY 09/23/17 Warfarin [Coumadin] 5 mg PO DAILY 09/23/17 Zinc Sulfate [Orazinc] 1 cap PO DAILY 09/23/17 - Allergies Allergies/Adverse Reactions: Allergies Allergy/AdvReac Type Severity Reaction Status Date / Time EGG AdvReac HEADACHE Verified 09/23/17 07:32 seafoods Allergy SWELLING Uncoded 09/23/17 07:32 Review of Systems Review Of Systems: ROS cannot be obtained secondary to pt's inabilty to answer questions. (due to patient's clincal Condition) Physical Exam - Reviewed Nursing Documentation Reviewed: Yes Vital Signs Reviewed: Yes - Physical Exam Appears: Negative for: No Acute Distress Eye Exam: Positive for: Normal appearance Cardiovascular/Chest: Positive for: Regular Rate, Rhythm Respiratory: Positive for: Normal Breath Sounds Rectal: Positive for: Other (Rectal Temp 90 C) Neurologic/Psych: Positive for: Other (Lethargic, non-verbal, minimal responsive to verbal stimuli) - Laboratory Results Result Diagrams: 09/24/17 04:30 09/24/17 04:30 - ECG Interpretation Of ECG: Ventricular-paced @ 60. O2 Sat by Pulse Oximetry: 98 (RA) Pulse Ox Interpretation: Normal - Core Measure Core Measure Indicators: Pneumonia - Critical Care Total Time (In Min): 45 Medical Decision Making Medical Decision Making: Time: 07:52 Initial Impression: Septic Work up Initial Plan: - EKG - CMP - CBC - Partial Thromboplastin Time - Prothrombin Time - Portable Chest X-Ray - Blood culture - Urine Culture - Influenza A B - Urinalysis Pt rectal temp 90.6, Juliet hugger placed, septic workup initiated. Time: 08:37 - Consulted with Dr. Escamilla Time: 08:38 - CT Head without Contrast Accession No. : [id number] Patient Name / ID : DELFINO ARROYO / [id number] Exam Date : 09/23/2017 08:21:17 ( Approved ) Study Comment : Sex / Age : M / 77Y Creator : Nathaniel Peralta MD Dictator : Nathaniel Peralta MD Shorts Sifter : Erisa Attorney : Nathaniel Peralta MD Approver2 : Report Date : 09/23/2017 10:35:11 My Comment : HISTORY: Hypothermia COMPARISON: Frontal chest 05/20/2017. FINDINGS: Right PICC now removed. Unipolar permanent cardiac pacemaker is now identified placed with the generator the left pectoralis region and solitary lead identified entering heart through a left subclavian approach. LUNGS: Mild bilateral mid to inferior pulmonary infiltrates are not excluded. PLEURA: Moderate left and mild right pleural effusions are identified. CARDIOVASCULAR: Stable prominent cardiac silhouette. Limited underlying pulmonary venous congestion is not excluded. OSSEOUS STRUCTURES: No significant abnormalities. VISUALIZED UPPER ABDOMEN: Normal. OTHER FINDINGS: None. IMPRESSION: Interval unipolar permanent cardiac pacemaker placement noted as discussed above. No pneumothorax bilaterally. Bilateral pleural effusions are identified increase of left and likely as an interval finding at the right but limited. Limited infiltrates of the mid to inferior bilateral lung zones are not excluded. Mild CHF is in question. Accession No. : [id number] Patient Name / ID : DELFINO ARROYO / [id number] Exam Date : 09/23/2017 09:15:33 ( Approved ) Study Comment : Sex / Age : M / 77Y Creator : Bennett Hollins MD Dictator : Bennett Hollins MD Shorts Sifter : Erisa Attorney : Bennett Hollins MD Approver2 : Report Date : 09/23/2017 10:50:37 My Comment : PROCEDURE: CT HEAD WITHOUT CONTRAST. HISTORY: Hallucinations COMPARISON: 03/29/2017. TECHNIQUE: Axial computed tomography images were obtained through the head/brain without intravenous contrast. Radiation dose: Total exam DLP = 2595.75 mGy-cm. This CT exam was performed using one or more of the following dose reduction techniques: Automated exposure control, adjustment of the mA and/or kV according to patient size, and/or use of iterative reconstruction technique. FINDINGS: HEMORRHAGE: No intracranial hemorrhage. BRAIN: No mass effect or edema. Cortical atrophy, periventricular small vessel disease. Evidence of old infarcts. VENTRICLES: Unremarkable. No hydrocephalus. CALVARIUM: Unremarkable. PARANASAL SINUSES: Unremarkable as visualized. No significant inflammatory changes. MASTOID AIR CELLS: Unremarkable as visualized. No inflammatory changes. OTHER FINDINGS: None. IMPRESSION: No acute intracranial abnormalities. No significant findings to account for the clinical presentation. No significant interval change compared to the prior examination(s). Scribe Attestation: Documented by Uzair Galdamez, acting as a scribe for Miceala Bonilla MD Provider Scribe Attestation: All medical record entries made by the Scribe were at my direction and personally dictated by me. I have reviewed the chart and agree that the record accurately reflects my personal performance of the history, physical exam, medical decision making, and the department course for this patient. I have also personally directed, reviewed, and agree with the discharge instructions and disposition. Disposition - Clinical Impression Clinical Impression: Hypothermia, Pneumonia, Supratherapeutic international normalized ratio (INR) - Patient ED Disposition Is Patient to be Admitted: Yes - Disposition Disposition Time: 11:47 Condition: GUARDED - Pt Status Changed To: Hospital Disposition Of: Inpatient - Admit Certification Admit to Inpatient:: After my assessment, the patient will require hospitalization for at least two midnights. This is because of the severity of symptoms shown, intensity of services needed, and/or the medical risk in this patient being treated as an outpatient. - POA Present On Arrival: Poor Glycemic Control
[2017-09-23 08:18] LABS: VENOUS BLOOD GAS BASE EXCESS 3.9 mmol/L (0.0-2.0); VENOUS BLOOD GAS PCO2 58 mmHg (40-60); VENOUS BLOOD GAS PO2 39 mm/Hg (30-55); VENOUS BLOOD PH 7.34 (7.32-7.43)
[2017-09-23 08:21] LABS: BASO % 0.3 % (0.0-2.0); EOS # 0.1 K/uL (0.0-0.7); EOS % 0.8 % (0.0-4.0); LYMPH # 0.5 K/uL (1.0-4.3); LYMPH % 6.6 % (20.0-40.0); MEAN CELL VOLUME 87.5 fl (80.0-94.0); MEAN CORPUSCULAR HEMOGLOBIN 29.5 pg (27.0-31.0); MEAN CORPUSCULAR HGB CONC 33.7 g/dL (33.0-37.0); MEAN PLATELET VOLUME 7.8 fl (7.2-11.7); MONO # 0.7 K/uL (0.0-0.8); MONO % 9.3 % (0.0-10.0); NEUT # 6.3 K/uL (1.8-7.0); NRBC % 0.2 % (0.0-0.0); PLATELET COUNT 278 K/uL (130-400); RBC 4.59 Mil/uL (4.40-5.90); RED CELL DISTRIBUTION WIDTH 18.9 % (11.5-14.5); WHITE BLOOD COUNT 7.6 K/uL (4.8-10.8)
[2017-09-23 08:24] LABS: HEMOGLOBIN 13.5 g/dL (12.0-18.0)
[2017-09-23 08:36] LABS: CALCIUM 9.2 mg/dL (8.4-10.2)
[2017-09-23] MEDS ORDERED: Sodium Chloride 0.9% 1,000 ML IV STA (09:02)
[2017-09-23 09:10] LABS: PROTHROMBIN TIME 68.1 Seconds (9.8-13.1)
[2017-09-23 09:11] LABS: INR 5.8 (0.9-1.2); PARTIAL THROMBOPLASTIN TIME 57.9 Seconds (25.6-37.1)
[2017-09-23] MEDS ORDERED: Albuterol-Ipratrop 3 mg / 0.5 (3 ml) UD INH STA (10:08)
[2017-09-23 10:15] LABS: LYMPHOCYTE 5 % (20-50); MONOCYTE 7 % (0-10); NEUTROPHIL 88 % (42-75); PLATELET ESTIMATE NORMAL (NORMAL); TOTAL CELLS COUNTED 100
[2017-09-23 10:16] LABS: ANISOCYTOSIS SLIGHT; TOXIC GRANULATION PRESENT
--- NOTE | 2017-09-23 10:37 | RAD ---
HISTORY: Hypothermia COMPARISON: Frontal chest 05/20/2017. FINDINGS: Right PICC now removed. Unipolar permanent cardiac pacemaker is now identified placed with the generator the left pectoralis region and solitary lead identified entering heart through a left subclavian approach. LUNGS: Mild bilateral mid to inferior pulmonary infiltrates are not excluded. PLEURA: Moderate left and mild right pleural effusions are identified. CARDIOVASCULAR: Stable prominent cardiac silhouette. Limited underlying pulmonary venous congestion is not excluded. OSSEOUS STRUCTURES: No significant abnormalities. VISUALIZED UPPER ABDOMEN: Normal. OTHER FINDINGS: None. IMPRESSION: Interval unipolar permanent cardiac pacemaker placement noted as discussed above. No pneumothorax bilaterally. Bilateral pleural effusions are identified increase of left and likely as an interval finding at the right but limited. Limited infiltrates of the mid to inferior bilateral lung zones are not excluded. Mild CHF is in question.
[2017-09-23] MEDS ORDERED: cefTRIAXone IV 1 gm in Dextros 50 ML IVPB STA (10:42)
[2017-09-23] MEDS ORDERED: Azithromycin 500 MG in Sodium Chloride 0.9% 250 ML IV STA (10:42)
--- NOTE | 2017-09-23 10:52 | CT ---
PROCEDURE: CT HEAD WITHOUT CONTRAST. HISTORY: Hallucinations COMPARISON: 03/29/2017. TECHNIQUE: Axial computed tomography images were obtained through the head/brain without intravenous contrast. Radiation dose: Total exam DLP = 2595.75 mGy-cm. This CT exam was performed using one or more of the following dose reduction techniques: Automated exposure control, adjustment of the mA and/or kV according to patient size, and/or use of iterative reconstruction technique. FINDINGS: HEMORRHAGE: No intracranial hemorrhage. BRAIN: No mass effect or edema. Cortical atrophy, periventricular small vessel disease. Evidence of old infarcts. VENTRICLES: Unremarkable. No hydrocephalus. CALVARIUM: Unremarkable. PARANASAL SINUSES: Unremarkable as visualized. No significant inflammatory changes. MASTOID AIR CELLS: Unremarkable as visualized. No inflammatory changes. OTHER FINDINGS: None. IMPRESSION: No acute intracranial abnormalities. No significant findings to account for the clinical presentation. No significant interval change compared to the prior examination(s).
[2017-09-23 11:11] LABS: INR 5.6 (0.9-1.2); PROTHROMBIN TIME 65.9 Seconds (9.8-13.1)
--- NOTE | 2017-09-23 11:18 | CARD ---
APPROVED REPORT EKG Measurement Heart [id number] <Conclusion> Ventricular-paced rhythm Abnormal ECG
[2017-09-23 11:24] LABS: TROPONIN I 0.017 ng/mL (0.00-0.120)
[2017-09-23] MEDS ORDERED: Dextrose 50% SYRINGE Inj (50 ml) IVP STA (11:57)
[2017-09-23] MEDS ORDERED: cefTRIAXone IV 1 gm in Dextros 50 ML IVPB ONE (12:05)
[2017-09-23] MEDS ORDERED: Dextrose 50% SYRINGE Inj (50 ml) ONE (12:05)
[2017-09-23 12:33] LABS: URINE BILIRUBIN NEGATIVE (NEGATIVE); URINE BLOOD SMALL (NEGATIVE); URINE CLARITY SLIGHTY-CLOUDY (Clear); URINE COLOR YELLOW (YELLOW); URINE GLUCOSE (UA) NEG (Normal); URINE LEUKOCYTE ESTERASE SMALL Leu/uL (Negative); URINE PROTEIN 30 mg/dL (NEGATIVE); URINE UROBILINOGEN 0.2-1.0 mg/dL (0.2-1.0)
[2017-09-23] MEDS ORDERED: Pneumococcal 23-Valent Vaccine IM ONE (14:58)
[2017-09-23] MEDS ORDERED: Influenza Vaccine 18yr & older 0.5 ML/45 MCG SYR IM ONE (14:59)
--- NOTE | 2017-09-23 15:33 | CP.CCUPN ---
CCU Subjective - Physician Review Subjective (Free Text): 09/23/17 17:47 The patient was Seen/interviewed and examined by me at the bedside, Medical records reviewed and Management issues were discussed and formulated with the house staff. 77 Years old Male with Multiple medical conditions including Atrial Fibrillation (on coumadin), CHF, CVA, HTN, Peripheral Edema, Seizures, Sleep Apnea, TIA Who was brought by EMS along with his to the Emergency Department Per , she was told by Dr. Escamilla to come to ED for "observation". She states that he has been on antibiotics for cough for 2 days and now devolop hallucination secondary to antibiotics. In the ER he was very hypothermic, CXR showing bilateral pleural effusion and bibasilar opacity Patient is Awake, lethargic but respond to basic commands Tachypnea Blood culture drawn and Received IV Rocephin and Zithromax Labs revealed no Leucocytosis, Coagulopathy with INR of 5.6 and PTT of 68, worsening renal function BUN/Cr up to 45/1.5 CCU Objective - Vital Signs / Intake & Output Vital Signs (Last 4 hours): Vital Signs Temp Pulse Resp BP Pulse Ox 09/23/17 12:39 93.2 F L 61 20 103/86 09/23/17 11:55 93.2 F L 61 20 103/86 97 Intake and Output (Last 8hrs): Intake & Output 09/23/17 09/23/17 09/23/17 06:59 14:59 22:59 Intake Total 450 Balance 450 Weight 160 lb Intake: IV 350 Intake, Piggyback 100 Oral 0 - Physical Exam Physical Exam Limitations: Positive for: Altered Mental Status, Clinical Condition Head: Positive for: Atraumatic, Normocephalic. Negative for: Tenderness, Contusion, Swelling, Ecchymosis, Abrasion Pupils: Positive for: PERRL, Sluggish. Negative for: Non-Reactive, Pinpoint Extroacular Muscles: Positive for: EOMI Conjunctiva: Positive for: Normal. Negative for: Injected, Icteric Ears: Positive for: Normal Mouth: Positive for: Moist Mucous Membranes Pharnyx: Positive for: Normal. Negative for: ERYTHEMA Neck: Positive for: Normal Range of Motion, Trachea Midline. Negative for: Meningeal Signs, MIDLINE TENDERNESS, Paraspinal Tenderness, JVD, Lymphadenopathy , Bruit, Other Respiratory/Chest: Positive for: Decreased Breath Sounds, Rhonchi, Tachypneic. Negative for: Respiratory Distress, Accessory Muscle Use, Wheezes, Rales Cardiovascular: Positive for: Irregular Rhythm, Peripheal Pulses Present. Negative for: Murmurs, Normal S1, S2, Tachycardic, Bradycardic Abdomen: Positive for: Normal Bowel Sounds. Negative for: Tenderness, Distention, Peritoneal Signs Psychiatric: Positive for: Alert - Medications Active Medications: Active Medications Generic Name Dose Route Start Last Admin Trade Name Freq PRN Reason Stop Dose Admin Sodium Chloride 1,000 mls @ 90 mls/hr 09/23/17 09:02 09/23/17 10:33 Sodium Chloride 0.9% IV 09/23/17 20:08 90 mls/hr .[id number] STA Administration - Patient Studies Lab Studies: Lab Studies 09/23/17 09/23/17 09/23/17 Range/Units 12:05 09:57 09:00 WBC (4.8-10.8) K/uL RBC (4.40-5.90) Mil/uL Hgb (12.0-18.0) g/dL Hct (35.0-51.0) % MCV (80.0-94.0) fl MCH (27.0-31.0) pg MCHC (33.0-37.0) g/dL RDW (11.5-14.5) % Plt Count (130-400) K/uL MPV (7.2-11.7) fl Neut % (Auto) (50.0-75.0) % Lymph % (Auto) (20.0-40.0) % Will % (Auto) (0.0-10.0) % Eos % (Auto) (0.0-4.0) % Baso % (Auto) (0.0-2.0) % Neut # (1.8-7.0) K/uL Lymph # (1.0-4.3) K/uL Will # (0.0-0.8) K/uL Eos # (0.0-0.7) K/uL Baso # (0.0-0.2) K/uL Neutrophils % (Manual) (42-75) % Lymphocytes % (Manual) (20-50) % Monocytes % (Manual) (0-10) % Toxic Granulation Platelet Estimate (NORMAL) Anisocytosis (manual) PT 65.9 H* (9.8-13.1) Seconds INR 5.6 H (0.9-1.2) APTT 68.0 H D (25.6-37.1) Seconds pO2 (30-55) mm/Hg VBG pH (7.32-7.43) VBG pCO2 (40-60) mmHg VBG HCO3 mmol/L VBG Total CO2 (22-28) mmol/L VBG O2 Sat (Calc) (40-65) % VBG Base Excess (0.0-2.0) mmol/L VBG Potassium (3.6-5.2) mmol/L Glucose (75-110) mg/dL Lactate (0.7-2.1) mmol/L FiO2 % Sodium (132-148) mmol/l Potassium (3.6-5.0) MMOL/L Chloride (98-107) mmol/L Carbon Dioxide (22-30) mmol/L Anion Gap (10-20) BUN (9-20) mg/dl Creatinine (0.8-1.5) mg/dL Est GFR ( Amer) Est GFR (Non-Af Amer) Random Glucose (75-110) mg/dL Calcium (8.4-10.2) mg/dL Total Bilirubin (0.2-1.3) mg/dl AST (17-59) U/L ALT (21-72) U/L Alkaline Phosphatase (38-126) U/L Troponin I (0.00-0.120) ng/mL NT-Pro-B Natriuret Pep (0-900) pg/ml Total Protein (6.3-8.2) G/DL Albumin (3.5-5.0) g/dL Globulin (2.2-3.9) gm/dL Albumin/Globulin Ratio (1.0-2.1) Venous Blood Potassium (3.6-5.2) mmol/L Urine Color Yellow (YELLOW) Urine Clarity Slighty-cloudy (Clear) Urine pH 6.0 (5.0-8.0) Ur Specific [place] 1.016 (1.003-1.030) Urine Protein 30 (NEGATIVE) mg/dL Urine Glucose (UA) Neg (Normal) mg/dL Urine Ketones Negative (NEGATIVE) mg/dL Urine Blood Small (NEGATIVE) Urine Nitrate Negative (NEGATIVE) Urine Bilirubin Negative (NEGATIVE) Urine Urobilinogen 0.2-1.0 (0.2-1.0) mg/dL Ur Leukocyte Esterase Small (Negative) Cristal/uL Urine RBC (Auto) 27 H (0-3) /hpf Urine Microscopic WBC 5 (0-5) /hpf Digoxin 1.2 (0.8-2.0) ng/mL Influenza Typ A,B (EIA) (NEGATIVE) 09/23/17 09/23/17 09/23/17 Range/Units 08:10 08:03 08:00 WBC (4.8-10.8) K/uL RBC (4.40-5.90) Mil/uL Hgb (12.0-18.0) g/dL Hct (35.0-51.0) % MCV (80.0-94.0) fl MCH (27.0-31.0) pg MCHC (33.0-37.0) g/dL RDW (11.5-14.5) % Plt Count (130-400) K/uL MPV (7.2-11.7) fl Neut % (Auto) (50.0-75.0) % Lymph % (Auto) (20.0-40.0) % Will % (Auto) (0.0-10.0) % Eos % (Auto) (0.0-4.0) % Baso % (Auto) (0.0-2.0) % Neut # (1.8-7.0) K/uL Lymph # (1.0-4.3) K/uL Will # (0.0-0.8) K/uL Eos # (0.0-0.7) K/uL Baso # (0.0-0.2) K/uL Neutrophils % (Manual) (42-75) % Lymphocytes % (Manual) (20-50) % Monocytes % (Manual) (0-10) % Toxic Granulation Platelet Estimate (NORMAL) Anisocytosis (manual) PT 68.1 H* (9.8-13.1) Seconds INR 5.8 H (0.9-1.2) APTT 57.9 H (25.6-37.1) Seconds pO2 39 (30-55) mm/Hg VBG pH 7.34 (7.32-7.43) VBG pCO2 58 (40-60) mmHg VBG HCO3 27.2 mmol/L VBG Total CO2 33.1 H (22-28) mmol/L VBG O2 Sat (Calc) 71.6 H (40-65) % VBG Base Excess 3.9 H (0.0-2.0) mmol/L VBG Potassium 5.5 H (3.6-5.2) mmol/L Glucose 69 L (75-110) mg/dL Lactate 1.8 (0.7-2.1) mmol/L FiO2 21.0 % Sodium 141.0 (132-148) mmol/l Potassium (3.6-5.0) MMOL/L Chloride 105.0 (98-107) mmol/L Carbon Dioxide (22-30) mmol/L Anion Gap (10-20) BUN (9-20) mg/dl Creatinine (0.8-1.5) mg/dL Est GFR ( Amer) Est GFR (Non-Af Amer) Random Glucose (75-110) mg/dL Calcium (8.4-10.2) mg/dL Total Bilirubin (0.2-1.3) mg/dl AST (17-59) U/L ALT (21-72) U/L Alkaline Phosphatase (38-126) U/L Troponin I (0.00-0.120) ng/mL NT-Pro-B Natriuret Pep (0-900) pg/ml Total Protein (6.3-8.2) G/DL Albumin (3.5-5.0) g/dL Globulin (2.2-3.9) gm/dL Albumin/Globulin Ratio (1.0-2.1) Venous Blood Potassium 5.5 H (3.6-5.2) mmol/L Urine Color (YELLOW) Urine Clarity (Clear) Urine pH (5.0-8.0) Ur Specific [place] (1.003-1.030) Urine Protein (NEGATIVE) mg/dL Urine Glucose (UA) (Normal) mg/dL Urine Ketones (NEGATIVE) mg/dL Urine Blood (NEGATIVE) Urine Nitrate (NEGATIVE) Urine Bilirubin (NEGATIVE) Urine Urobilinogen (0.2-1.0) mg/dL Ur Leukocyte Esterase (Negative) [place]/uL Urine RBC (Auto) (0-3) /hpf Urine Microscopic WBC (0-5) /hpf Digoxin (0.8-2.0) ng/mL Influenza Typ A,B (EIA) Negative for flu a/b (NEGATIVE) 09/23/17 09/23/17 Range/Units 08:00 08:00 WBC 7.6 (4.8-10.8) K/uL RBC 4.59 (4.40-5.90) Mil/uL Hgb 13.5 D (12.0-18.0) g/dL Hct 40.1 (35.0-51.0) % MCV 87.5 D (80.0-94.0) fl MCH 29.5 (27.0-31.0) pg MCHC 33.7 (33.0-37.0) g/dL RDW 18.9 H (11.5-14.5) % Plt Count 278 (130-400) K/uL MPV 7.8 (7.2-11.7) fl Neut % (Auto) 83.0 H (50.0-75.0) % Lymph % (Auto) 6.6 L (20.0-40.0) % Will % (Auto) 9.3 (0.0-10.0) % Eos % (Auto) 0.8 (0.0-4.0) % Baso % (Auto) 0.3 (0.0-2.0) % Neut # 6.3 (1.8-7.0) K/uL Lymph # 0.5 L (1.0-4.3) K/uL Will # 0.7 (0.0-0.8) K/uL Eos # 0.1 (0.0-0.7) K/uL Baso # 0.0 (0.0-0.2) K/uL Neutrophils % (Manual) 88 H (42-75) % Lymphocytes % (Manual) 5 L (20-50) % Monocytes % (Manual) 7 (0-10) % Toxic Granulation Present Platelet Estimate Normal (NORMAL) Anisocytosis (manual) Slight PT (9.8-13.1) Seconds INR (0.9-1.2) APTT (25.6-37.1) Seconds pO2 (30-55) mm/Hg VBG pH (7.32-7.43) VBG pCO2 (40-60) mmHg VBG HCO3 mmol/L VBG Total CO2 (22-28) mmol/L VBG O2 Sat (Calc) (40-65) % VBG Base Excess (0.0-2.0) mmol/L VBG Potassium (3.6-5.2) mmol/L Glucose (75-110) mg/dL Lactate (0.7-2.1) mmol/L FiO2 % Sodium 143 (132-148) mmol/l Potassium 5.5 H (3.6-5.0) MMOL/L Chloride 104 (98-107) mmol/L Carbon Dioxide 29 (22-30) mmol/L Anion Gap 16 (10-20) BUN 45 H (9-20) mg/dl Creatinine 1.5 (0.8-1.5) mg/dL Est GFR ( Amer) 55 Est GFR (Non-Af Amer) 45 Random Glucose 70 L (75-110) mg/dL Calcium 9.2 (8.4-10.2) mg/dL Total Bilirubin 0.8 (0.2-1.3) mg/dl AST 69 H (17-59) U/L ALT 43 (21-72) U/L Alkaline Phosphatase 131 H (38-126) U/L Troponin I 0.0170 (0.00-0.120) ng/mL NT-Pro-B Natriuret Pep 731 (0-900) pg/ml Total Protein 8.0 (6.3-8.2) G/DL Albumin 4.0 (3.5-5.0) g/dL Globulin 4.0 H (2.2-3.9) gm/dL Albumin/Globulin Ratio 1.0 (1.0-2.1) Venous Blood Potassium (3.6-5.2) mmol/L Urine Color (YELLOW) Urine Clarity (Clear) Urine pH (5.0-8.0) Ur Specific [place] (1.003-1.030) Urine Protein (NEGATIVE) mg/dL Urine Glucose (UA) (Normal) mg/dL Urine Ketones (NEGATIVE) mg/dL Urine Blood (NEGATIVE) Urine Nitrate (NEGATIVE) Urine Bilirubin (NEGATIVE) Urine Urobilinogen (0.2-1.0) mg/dL Ur Leukocyte Esterase (Negative) [place]/uL Urine RBC (Auto) (0-3) /hpf Urine Microscopic WBC (0-5) /hpf Digoxin (0.8-2.0) ng/mL Influenza Typ A,B (EIA) (NEGATIVE) Laboratory Results - last 24 hr 09/23/17 09/23/17 09/23/17 08:00 08:00 08:00 WBC 7.6 RBC 4.59 Hgb 13.5 D Hct 40.1 MCV 87.5 D MCH 29.5 MCHC 33.7 RDW 18.9 H Plt Count 278 MPV 7.8 Neut % (Auto) 83.0 H Lymph % (Auto) 6.6 L Will % (Auto) 9.3 Eos % (Auto) 0.8 Baso % (Auto) 0.3 Neut # 6.3 Lymph # 0.5 L Will # 0.7 Eos # 0.1 Baso # 0.0 Neutrophils % (Manual) 88 H Lymphocytes % (Manual) 5 L Monocytes % (Manual) 7 Toxic Granulation Present Platelet Estimate Normal Anisocytosis (manual) Slight PT 68.1 H* INR 5.8 H APTT 57.9 H pO2 VBG pH VBG pCO2 VBG HCO3 VBG Total CO2 VBG O2 Sat (Calc) VBG Base Excess VBG Potassium Glucose Lactate FiO2 Sodium 143 Potassium 5.5 H Chloride 104 Carbon Dioxide 29 Anion Gap 16 BUN 45 H Creatinine 1.5 Est GFR ( Amer) 55 Est GFR (Non-Af Amer) 45 Random Glucose 70 L Calcium 9.2 Total Bilirubin 0.8 AST 69 H ALT 43 Alkaline Phosphatase 131 H Troponin I 0.0170 NT-Pro-B Natriuret Pep 731 Total Protein 8.0 Albumin 4.0 Globulin 4.0 H Albumin/Globulin Ratio 1.0 Venous Blood Potassium Urine Color Urine Clarity Urine pH Ur Specific [place] Urine Protein Urine Glucose (UA) Urine Ketones Urine Blood Urine Nitrate Urine Bilirubin Urine Urobilinogen Ur Leukocyte Esterase Urine RBC (Auto) Urine Microscopic WBC Digoxin Influenza Typ A,B (EIA) 09/23/17 09/23/17 09/23/17 08:03 08:10 09:00 WBC RBC Hgb Hct MCV MCH MCHC RDW Plt Count MPV Neut % (Auto) Lymph % (Auto) Will % (Auto) Eos % (Auto) Baso % (Auto) Neut # Lymph # Will # Eos # Baso # Neutrophils % (Manual) Lymphocytes % (Manual) Monocytes % (Manual) Toxic Granulation Platelet Estimate Anisocytosis (manual) PT INR APTT pO2 39 VBG pH 7.34 VBG pCO2 58 VBG HCO3 27.2 VBG Total CO2 33.1 H VBG O2 Sat (Calc) 71.6 H VBG Base Excess 3.9 H VBG Potassium 5.5 H Glucose 69 L Lactate 1.8 FiO2 21.0 Sodium 141.0 Potassium Chloride 105.0 Carbon Dioxide Anion Gap BUN Creatinine Est GFR ( Amer) Est GFR (Non-Af Amer) Random Glucose Calcium Total Bilirubin AST ALT Alkaline Phosphatase Troponin I NT-Pro-B Natriuret Pep Total Protein Albumin Globulin Albumin/Globulin Ratio Venous Blood Potassium 5.5 H Urine Color Urine Clarity Urine pH Ur Specific [place] Urine Protein Urine Glucose (UA) Urine Ketones Urine Blood Urine Nitrate Urine Bilirubin Urine Urobilinogen Ur Leukocyte Esterase Urine RBC (Auto) Urine Microscopic WBC Digoxin 1.2 Influenza Typ A,B (EIA) Negative for flu a/b 09/23/17 09/23/17 09:57 12:05 WBC RBC Hgb Hct MCV MCH MCHC RDW Plt Count MPV Neut % (Auto) Lymph % (Auto) Will % (Auto) Eos % (Auto) Baso % (Auto) Neut # Lymph # Will # Eos # Baso # Neutrophils % (Manual) Lymphocytes % (Manual) Monocytes % (Manual) Toxic Granulation Platelet Estimate Anisocytosis (manual) PT 65.9 H* INR 5.6 H APTT 68.0 H D pO2 VBG pH VBG pCO2 VBG HCO3 VBG Total CO2 VBG O2 Sat (Calc) VBG Base Excess VBG Potassium Glucose Lactate FiO2 Sodium Potassium Chloride Carbon Dioxide Anion Gap BUN Creatinine Est GFR ( Amer) Est GFR (Non-Af Amer) Random Glucose Calcium Total Bilirubin AST ALT Alkaline Phosphatase Troponin I NT-Pro-B Natriuret Pep Total Protein Albumin Globulin Albumin/Globulin Ratio Venous Blood Potassium Urine Color Yellow Urine Clarity Slighty-cloudy Urine pH 6.0 Ur Specific [place] 1.016 Urine Protein 30 Urine Glucose (UA) Neg Urine Ketones Negative Urine Blood Small Urine Nitrate Negative Urine Bilirubin Negative Urine Urobilinogen 0.2-1.0 Ur Leukocyte Esterase Small Urine RBC (Auto) 27 H Urine Microscopic WBC 5 Digoxin Influenza Typ A,B (EIA) EKG/Cardiology Studies: Cardiology / EKG Studies 09/23/17 07:52 EKG [ELECTROCARDIOGRAM] Stat Comment: Mode Of Transportation: PORTABLE Reason For Exam: SOB Fingerstick Blood Sugar Results: 64 Review of Systems - Review of Systems Systems not reviewed;Unavailable: Altered Mental Status Critical Care Progress Note - Extremities/Vascular Does the Patient have a Central Venous Catheter?: No Does the Patient need a Central Venous Catheter?: No Does the Patient have a Wang Catheter?: No Does the Patient need a Wang Catheter?: No Assessment/Plan (1) Acute respiratory failure with hypoxia Current Visit: Yes Status: Acute Comment: Acute respiratory failure secondary to likely aspiration pneumonia with pleural effusion in the setting of severe Respiratory muscle weakness Admitted to ICU care for hemodynamic and Respiratory monitoring IV Vancomycin and Piperacillin Sod/Tazobactam PRN Diuresis Strict I&O, negative fluid balance Aggressive pulmonary toilet, chest PT, suctioning nebulizer treatment Maintain aspiration precautions GI/DVT PPX (2) CANEDLARIA (acute kidney injury) Current Visit: Yes Status: Acute Priority: High Comment: Optimize blood pressure, hemodynamic monitoring and maintain end-organ Off all nephrotoxic medications Renally adjust medication dose (3) Altered mental status Current Visit: Yes Status: Acute Priority: High (4) Aspiration pneumonia Current Visit: No Status: Acute (5) Pleural effusion, bilateral Current Visit: Yes Status: Acute Priority: High Comment: Chest CT scan ordered Will need to correct coagulopathy first before any drainage procedure (6) A-fib Current Visit: No Status: Chronic Priority: High Comment: Holding Metoprolol due to boarderline BP Holding Warfarin due to elevated INR (7) Seizure disorder Current Visit: No Status: Chronic Priority: Medium Comment: Resume amoTRIgine [Lamictal]
[2017-09-23] MEDS ORDERED: Piperacillin/Tazobact 3.375 GM in Sodium Chloride 0.9% 100 ML IVPB SCH (16:00)
--- NOTE | 2017-09-23 16:25 | CP.PCM.HP ---
History of Present Illness - History of Present Illness History of Present Illness: CC: AMS. 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 As per , she feels might had clonic movements several days ago. Worsening symptoms: Pt found Hypotermic, SOB associated to cough unable to bring out phlegms, non bloody, also showing Pleural effusion b/l, Infiltrates b/ l lung zones on CXR. INR 5.6, PTT 68.0, PT 65.9 Aggravated factor: Unable to speak or understand. No Fever, chills, n/v/d, abdominal pain, hematuria, bloody stool, CP, syncope, numbness, sick contact, recent travel. Head CT: No acutes intracranial abnormalities. After evaluation , Pt was admitted to ICU unit. Present on Admission - Present on Admission Any Indicators Present on Admission: No Review of Systems - Review of Systems Systems not reviewed;Unavailable: Acuity of Condition, Altered Mental Status Past Patient History - Infectious Disease Hx of Infectious Diseases: None - Past Medical History & Family History Past Medical History?: Yes Pertinent Family History: Unknown - Past Social History Smoking Status: Never Smoked Alcohol: None Drugs: Denies Home Situation {Lives}: With Family - CARDIAC Hx Cardiac Disorders: Yes (afib, CHF, HTn, pacemaker, peripheral edema) - PULMONARY Hx Respiratory Disorders: Yes (sleep apnea) - NEUROLOGICAL Hx Neurological Disorder: Yes (CVA, TIAm seizure, syncope) - HEENT Hx HEENT Problems: No - RENAL Hx Chronic Kidney Disease: No - ENDOCRINE/METABOLIC Hx Endocrine Disorders: No - HEMATOLOGICAL/ONCOLOGICAL Hx Human Immunodeficiency Virus (HIV): No - INTEGUMENTARY Hx Dermatological Problems: No - MUSCULOSKELETAL/RHEUMATOLOGICAL Hx Musculoskeletal Disorders: Yes Hx Falls: Yes Hx Unsteady Gait: Yes - GASTROINTESTINAL Hx Gastrointestinal Disorders: No - GENITOURINARY/GYNECOLOGICAL Hx Genitourinary Disorders: Yes Hx Incontinence: Yes Hx Prostate Problems: Yes (BPH) - PSYCHIATRIC Hx Psychophysiologic Disorder: Yes Hx Hallucinations: Yes Hx Substance Use: No - SURGICAL HISTORY Hx Surgeries: No - ANESTHESIA Hx Anesthesia: No Meds Allergies/Adverse Reactions: Allergies Allergy/AdvReac Type Severity Reaction Status Date / Time EGG AdvReac HEADACHE Verified 09/23/17 07:32 seafoods Allergy SWELLING Uncoded 09/23/17 07:32 Physical Exam - Constitutional Appears: Chronically Ill - Head Exam Head Exam: NORMAL INSPECTION - Eye Exam Eye Exam: PERRL Additional comments: Sluggish - ENT Exam ENT Exam: Normal Oropharynx - Neck Exam Neck exam: Positive for: Normal Inspection - Respiratory Exam Respiratory Exam: Decreased Breath Sounds (at bases), Rhonchi (b/l) - Cardiovascular Exam Cardiovascular Exam: Irregular Rhythm Additional comments: AICD - GI/Abdominal Exam GI & Abdominal Exam: Normal Bowel Sounds, Soft - Extremities Exam Additional comments: 2+ pitting edema BLE - Back Exam Back exam: NORMAL INSPECTION - Neurological Exam Additional comments: Lethargic, minimal response to verbal stimuli, generalized weakness. - Psychiatric Exam Psychiatric exam: Flat Affect - Skin Skin Exam: Warm Results - Vital Signs Recent Vital Signs: Last Vital Signs Temp 93.2 F L 09/23/17 12:39 Pulse 61 09/23/17 12:39 Resp 20 09/23/17 12:39 BP 103/86 09/23/17 12:39 Pulse Ox 97 09/23/17 11:55 reviewed J.PEmily - Labs Result Diagrams: 10/04/17 04:20 10/04/17 04:20 Labs: Laboratory Results - last 24 hr 09/23/17 09/23/17 09/23/17 08:00 08:00 08:00 WBC 7.6 RBC 4.59 Hgb 13.5 D Hct 40.1 MCV 87.5 D MCH 29.5 MCHC 33.7 RDW 18.9 H Plt Count 278 MPV 7.8 Neut % (Auto) 83.0 H Lymph % (Auto) 6.6 L [place] % (Auto) 9.3 Eos % (Auto) 0.8 Baso % (Auto) 0.3 Neut # 6.3 Lymph # 0.5 L [place] # 0.7 Eos # 0.1 Baso # 0.0 Neutrophils % (Manual) 88 H Lymphocytes % (Manual) 5 L Monocytes % (Manual) 7 Toxic Granulation Present Platelet Estimate Normal Anisocytosis (manual) Slight PT 68.1 H* INR 5.8 H APTT 57.9 H pO2 VBG pH VBG pCO2 VBG HCO3 VBG Total CO2 VBG O2 Sat (Calc) VBG Base Excess VBG Potassium Glucose Lactate FiO2 Sodium 143 Potassium 5.5 H Chloride 104 Carbon Dioxide 29 Anion Gap 16 BUN 45 H Creatinine 1.5 Est GFR ( Amer) 55 Est GFR (Non-Af Amer) 45 Random Glucose 70 L Calcium 9.2 Total Bilirubin 0.8 AST 69 H ALT 43 Alkaline Phosphatase 131 H Troponin I 0.0170 NT-Pro-B Natriuret Pep 731 Total Protein 8.0 Albumin 4.0 Globulin 4.0 H Albumin/Globulin Ratio 1.0 Venous Blood Potassium Urine Color Urine Clarity Urine pH Ur Specific [place] Urine Protein Urine Glucose (UA) Urine Ketones Urine Blood Urine Nitrate Urine Bilirubin Urine Urobilinogen Ur Leukocyte Esterase Urine RBC (Auto) Urine Microscopic WBC Digoxin Influenza Typ A,B (EIA) 09/23/17 09/23/17 09/23/17 08:03 08:10 09:00 WBC RBC Hgb Hct MCV MCH MCHC RDW Plt Count MPV Neut % (Auto) Lymph % (Auto) [place] % (Auto) Eos % (Auto) Baso % (Auto) Neut # Lymph # [place] # Eos # Baso # Neutrophils % (Manual) Lymphocytes % (Manual) Monocytes % (Manual) Toxic Granulation Platelet Estimate Anisocytosis (manual) PT INR APTT pO2 39 VBG pH 7.34 VBG pCO2 58 VBG HCO3 27.2 VBG Total CO2 33.1 H VBG O2 Sat (Calc) 71.6 H VBG Base Excess 3.9 H VBG Potassium 5.5 H Glucose 69 L Lactate 1.8 FiO2 21.0 Sodium 141.0 Potassium Chloride 105.0 Carbon Dioxide Anion Gap BUN Creatinine Est GFR ( Amer) Est GFR (Non-Af Amer) Random Glucose Calcium Total Bilirubin AST ALT Alkaline Phosphatase Troponin I NT-Pro-B Natriuret Pep Total Protein Albumin Globulin Albumin/Globulin Ratio Venous Blood Potassium 5.5 H Urine Color Urine Clarity Urine pH Ur Specific [place] Urine Protein Urine Glucose (UA) Urine Ketones Urine Blood Urine Nitrate Urine Bilirubin Urine Urobilinogen Ur Leukocyte Esterase Urine RBC (Auto) Urine Microscopic WBC Digoxin 1.2 Influenza Typ A,B (EIA) Negative for flu a/b 09/23/17 09/23/17 09:57 12:05 WBC RBC Hgb Hct MCV MCH MCHC RDW Plt Count MPV Neut % (Auto) Lymph % (Auto) [place] % (Auto) Eos % (Auto) Baso % (Auto) Neut # Lymph # [place] # Eos # Baso # Neutrophils % (Manual) Lymphocytes % (Manual) Monocytes % (Manual) Toxic Granulation Platelet Estimate Anisocytosis (manual) PT 65.9 H* INR 5.6 H APTT 68.0 H D pO2 VBG pH VBG pCO2 VBG HCO3 VBG Total CO2 VBG O2 Sat (Calc) VBG Base Excess VBG Potassium Glucose Lactate FiO2 Sodium Potassium Chloride Carbon Dioxide Anion Gap BUN Creatinine Est GFR ( Amer) Est GFR (Non-Af Amer) Random Glucose Calcium Total Bilirubin AST ALT Alkaline Phosphatase Troponin I NT-Pro-B Natriuret Pep Total Protein Albumin Globulin Albumin/Globulin Ratio Venous Blood Potassium Urine Color Yellow Urine Clarity Slighty-cloudy Urine pH 6.0 Ur Specific [place] 1.016 Urine Protein 30 Urine Glucose (UA) Neg Urine Ketones Negative Urine Blood Small Urine Nitrate Negative Urine Bilirubin Negative Urine Urobilinogen 0.2-1.0 Ur Leukocyte Esterase Small Urine RBC (Auto) 27 H Urine Microscopic WBC 5 Digoxin Influenza Typ A,B (EIA) reviewed J.P. - EKG Data EKG comments: reviewed J.P. - Imaging and Cardiology Chest x-ray Status: Report reviewed by me (J.P.) CT scan - head Status: Report reviewed by me (J.P.) Assessment & Plan (1) Acute respiratory failure with hypoxia Status: Acute Priority: High (2) Aspiration pneumonia Status: Acute Priority: High (3) Altered mental status Status: Acute Priority: High (4) Pleural effusion, bilateral Status: Acute Priority: High (5) Diastolic CHF, acute on chronic Status: Acute (6) Hx of seizure disorder Status: Chronic Priority: High (7) A-fib Status: Chronic Priority: High (8) CANDELARIA (acute kidney injury) Status: Acute (9) Hypothermia Status: Deleted (10) HTN (hypertension) Status: Chronic Priority: Medium - Assessment and Plan (Free Text) Plan: Continue respiratory therapy, O2 , Duoneb, Vanco, Zosyn, FFP , f/u Blood C-S, U C_S, MRSA Screening, CT Chest , ECHO ,swallowing eval, IR consult for Thoracentesis , Cardiology consult, Neuro consult ICU Time: 65 min. - Date & Time Date: 09/23/17 Time: 10:00
[2017-09-23 16:40] LABS: ABG ALLEN TEST YES; ARTERIAL BLOOD GAS HCO3 27.5 mmol/L (21-28); ARTERIAL BLOOD GAS O2 SAT 97.6 % (95-98); ARTERIAL BLOOD GAS PCO2 50 mm/Hg (35-45); ARTERIAL BLOOD GAS PH 7.38 (7.35-7.45); ARTERIAL BLOOD GAS PO2 84 mm/Hg (80-100); ARTERIAL BLOOD GAS TCO2 31.1 mmol/L (22-28)
[2017-09-23] MEDS: Piperacill/Tazo 3.375gm in Dex 3.375 GM/50 ML BAG IVPB SCH (17:52)
[2017-09-23] MEDS ORDERED: Enalaprilat 2.5 MG/2 ML IVP STA (21:38)
[2017-09-24] MEDS ORDERED: Dextrose 50% SYRINGE Inj (50 ml) IVP ONE (00:26)
[2017-09-24] MEDS: Piperacill/Tazo 3.375gm in Dex 3.375 GM/50 ML BAG IVPB SCH ×5 (05:41→22:59)
[2017-09-24 05:47] LABS: INR 3.2 (0.9-1.2); PROTHROMBIN TIME 37.4 Seconds (9.8-13.1)
[2017-09-24 05:56] LABS: BASO % 0.2 % (0.0-2.0); EOS % 0.2 % (0.0-4.0); HEMOGLOBIN 10.5 g/dL (12.0-18.0); LYMPH # 0.6 K/uL (1.0-4.3); LYMPH % 9.3 % (20.0-40.0); MEAN CELL VOLUME 87.2 fl (80.0-94.0); MEAN CORPUSCULAR HEMOGLOBIN 28.6 pg (27.0-31.0); MEAN CORPUSCULAR HGB CONC 32.8 g/dL (33.0-37.0); MEAN PLATELET VOLUME 7.3 fl (7.2-11.7); MONO # 0.8 K/uL (0.0-0.8); MONO % 12.8 % (0.0-10.0); NEUT # 4.6 K/uL (1.8-7.0); NEUT % 77.5 % (50.0-75.0); RBC 3.67 Mil/uL (4.40-5.90); RED CELL DISTRIBUTION WIDTH 19.2 % (11.5-14.5); WHITE BLOOD COUNT 5.9 K/uL (4.8-10.8)
[2017-09-24 05:58] LABS: ALBUMIN 3.3 g/dL (3.5-5.0); CALCIUM 8.3 mg/dL (8.4-10.2)
--- NOTE | 2017-09-24 10:24 | CT ---
PROCEDURE: CT Chest without contrast HISTORY: bilateral pleural effusion COMPARISON: Chest CT without contrast 05/21/2017. TECHNIQUE: Contiguous axial images were obtained through the chest without intravenous contrast enhancement. Sagittal and coronal reconstructions were performed. Radiation dose (DLP): 730.91 mGy-cm. This CT exam was performed using one or more of the following dose reduction techniques: Automated exposure control, adjustment of the mA and/or kV according to patient size, and/or use of iterative reconstruction technique. FINDINGS: LUNGS: Prominent bilateral compression (interval or increased) atelectasis appreciate the bilateral upper and lower lobes as well as the right middle lobe two large bilateral pleural effusions with no definite pericardial effusion appreciated. Respiratory motion degrades evaluation of aerated lung ward bilaterally. No definite central airway lesion is identified and no specific nodular masses seen within aerated lungs. Cardiac size remains enlarged. There is an interval prior cardiac pacemaker/implanted defibrillator in position in the interval with the generator the left pectoralis region and leads identified entering through the subclavian vein terminating at the right heart. No pneumothorax is identified. No prominent lymphadenopathy. Thoracic aorta remains normal caliber as well as the main pulmonary artery. BONES: No fracture. No destructive lesion. UPPER ABDOMEN: Mild left hydronephrosis again suggested. OTHER FINDINGS: None. IMPRESSION: Interval or increased chronic bilateral pleural effusions identified appearing large exerting significant compression atelectasis the bilateral lungs as discussed above. Underlying pneumonia is not excluded bilaterally. No central airway lesion. Restrained motion degrades quality this exam. Lack of venous contrast limits interpretation. Mild left hydronephrosis incidentally noted.
--- NOTE | 2017-09-24 11:35 | RAD ---
PROCEDURE: CHEST RADIOGRAPH, 1 VIEW HISTORY: Pneumonia with pleural effusion COMPARISON: 09/23/2017 FINDINGS: LUNGS: There is mild aeration in the right upper lobe and complete opacification of the remaining right lung and left lung. PLEURA: Large bilateral pleural effusions, worse on the left. CARDIOVASCULAR: The heart remains enlarged. OSSEOUS STRUCTURES: No significant abnormalities. VISUALIZED UPPER ABDOMEN: Normal. OTHER FINDINGS: None. IMPRESSION: Findings are most compatible with worsening large pleural effusions, worse on the left. Underlying airspace disease/edema cannot be excluded.
--- NOTE | 2017-09-24 13:40 | CP.CCUPN ---
CCU Subjective - Physician Review Subjective (Free Text): 09/23/17 17:47 The patient was Seen/interviewed and examined by me at the bedside, Medical records reviewed and Management issues were discussed and formulated with the house staff. 77 Years old Male with Multiple medical conditions including Atrial Fibrillation (on coumadin), CHF, CVA, HTN, Peripheral Edema, Seizures, Sleep Apnea, TIA Who was brought by EMS along with his to the Emergency Department Per , she was told by Dr. Escamilla to come to ED for "observation". She states that he has been on antibiotics for cough for 2 days and now devolop hallucination secondary to antibiotics. In the ER he was very hypothermic, CXR showing bilateral pleural effusion and bibasilar opacity Patient is Awake, lethargic but respond to basic commands Tachypnea Blood culture drawn and Received IV Rocephin and Zithromax Labs revealed no Leucocytosis, Coagulopathy with INR of 5.6 and PTT of 68, worsening renal function BUN/Cr up to 45/1.5 CCU Objective - Vital Signs / Intake & Output Vital Signs (Last 4 hours): Vital Signs Temp Pulse Resp BP Pulse Ox 09/24/17 12:00 98.7 F 69 19 108/54 L 99 09/24/17 11:18 21 09/24/17 10:00 88 34 H 99/46 L 99 Intake and Output (Last 8hrs): Intake & Output 09/23/17 09/24/17 09/24/17 22:59 06:59 14:59 Intake Total 650 580 Balance 650 580 Intake: IV 650 200 Intake, Piggyback 50 Blood Product 330 Other: # Voids Urine, Voided 1 - Physical Exam Head: Positive for: Atraumatic, Normocephalic. Negative for: Tenderness, Contusion, Swelling, Ecchymosis, Abrasion Pupils: Positive for: PERRL, Sluggish. Negative for: Non-Reactive, Pinpoint Extroacular Muscles: Positive for: EOMI Conjunctiva: Positive for: Normal. Negative for: Injected, Icteric Ears: Positive for: Normal Mouth: Positive for: Moist Mucous Membranes Pharnyx: Positive for: Normal. Negative for: ERYTHEMA Neck: Positive for: Normal Range of Motion, Trachea Midline. Negative for: Meningeal Signs, MIDLINE TENDERNESS, Paraspinal Tenderness, JVD, Lymphadenopathy , Bruit, Other Respiratory/Chest: Positive for: Decreased Breath Sounds, Rhonchi, Tachypneic. Negative for: Respiratory Distress, Accessory Muscle Use, Wheezes, Rales Cardiovascular: Positive for: Irregular Rhythm, Peripheal Pulses Present. Negative for: Murmurs, Normal S1, S2, Tachycardic, Bradycardic Abdomen: Positive for: Normal Bowel Sounds. Negative for: Tenderness, Distention, Peritoneal Signs Psychiatric: Positive for: Alert - Medications Active Medications: Active Medications Generic Name Dose Route Start Last Admin Trade Name Freq PRN Reason Stop Dose Admin Albuterol/Ipratropium 3 ml 09/23/17 17:59 Duoneb 3 Mg/0.5 Mg (3 Ml) Ud INH RQ4 PRN Shortness of Breath Piperacillin Sod/Tazobactam Sod 3.375 gm in 50 mls @ 50 mls/hr 09/23/17 17:45 09/24/17 09:05 Zosyn 3.375 Gm Iv Premix IVPB 50 mls/hr Q6 YUKI Administration Protocol Vancomycin HCl 1 gm/ Sodium 250 mls @ 250 mls/hr 09/23/17 17:44 09/23/17 17: 51 Chloride IVPB 250 mls/hr DAILY YUKI Administration Protocol Dextrose/Sodium Chloride 500 mls @ 50 mls/hr 09/24/17 08:00 09/24/17 08:15 Dextrose 5%-0.45% Ns 500 Ml IV 09/25/17 07:52 50 mls/hr .Q10H YUKI Administration Lamotrigine 25 mg 09/23/17 18:15 09/24/17 09:05 Lamictal PO Not Given BID YUKI - Patient Studies Lab Studies: Microbiology Studies 09/23/17 08:15 Blood Culture - Preliminary Blood NO GROWTH AFTER 24 HOURS 09/23/17 08:00 Blood Culture - Preliminary Blood NO GROWTH AFTER 24 HOURS Lab Studies 09/24/17 09/24/17 09/24/17 Range/Units 11:03 06:12 04:30 WBC (4.8-10.8) K/uL RBC (4.40-5.90) Mil/uL Hgb (12.0-18.0) g/dL Hct (35.0-51.0) % MCV (80.0-94.0) fl MCH (27.0-31.0) pg MCHC (33.0-37.0) g/dL RDW (11.5-14.5) % Plt Count (130-400) K/uL MPV (7.2-11.7) fl Neut % (Auto) (50.0-75.0) % Lymph % (Auto) (20.0-40.0) % [place] % (Auto) (0.0-10.0) % Eos % (Auto) (0.0-4.0) % Baso % (Auto) (0.0-2.0) % Neut # (1.8-7.0) K/uL Lymph # (1.0-4.3) K/uL [place] # (0.0-0.8) K/uL Eos # (0.0-0.7) K/uL Baso # (0.0-0.2) K/uL PT 37.4 H D (9.8-13.1) Seconds INR 3.2 H D (0.9-1.2) pCO2 (35-45) mm/Hg pO2 (80-100) mm/Hg HCO3 (21-28) mmol/L ABG pH (7.35-7.45) ABG Total CO2 (22-28) mmol/L ABG O2 Saturation (95-98) % ABG Base Excess (-2.0-3.0) mmol/L Bro[place]ick Test ABG Potassium (3.6-5.2) mmol/L A-a O2 Difference mm/Hg Sodium (132-148) mmol/L Chloride (98-107) mmol/L Glucose (75-110) mg/dL Lactate (0.7-2.1) mmol/L FiO2 % Potassium (3.6-5.0) MMOL/L Carbon Dioxide (22-30) mmol/L Anion Gap (10-20) BUN (9-20) mg/dl Creatinine (0.8-1.5) mg/dL Est GFR ( Amer) Est GFR (Non-Af Amer) POC Glucose (mg/dL) 81 70 (65-110) mg/dL Random Glucose (75-110) mg/dL Calcium (8.4-10.2) mg/dL Total Bilirubin (0.2-1.3) mg/dl AST (17-59) U/L ALT (21-72) U/L Alkaline Phosphatase (38-126) U/L Total Protein (6.3-8.2) G/DL Albumin (3.5-5.0) g/dL Globulin (2.2-3.9) gm/dL Albumin/Globulin Ratio (1.0-2.1) Arterial Blood Potassium (3.6-5.2) mmol/L 09/24/17 09/24/17 09/24/17 Range/Units 04:30 04:30 00:22 WBC 5.9 (4.8-10.8) K/uL RBC 3.67 L (4.40-5.90) Mil/uL Hgb 10.5 L D (12.0-18.0) g/dL Hct 32.0 L (35.0-51.0) % MCV 87.2 (80.0-94.0) fl MCH 28.6 (27.0-31.0) pg MCHC 32.8 L (33.0-37.0) g/dL RDW 19.2 H (11.5-14.5) % Plt Count 213 (130-400) K/uL MPV 7.3 (7.2-11.7) fl Neut % (Auto) 77.5 H (50.0-75.0) % Lymph % (Auto) 9.3 L (20.0-40.0) % [place] % (Auto) 12.8 H (0.0-10.0) % Eos % (Auto) 0.2 (0.0-4.0) % Baso % (Auto) 0.2 (0.0-2.0) % Neut # 4.6 (1.8-7.0) K/uL Lymph # 0.6 L (1.0-4.3) K/uL [place] # 0.8 (0.0-0.8) K/uL Eos # 0.0 (0.0-0.7) K/uL Baso # 0.0 (0.0-0.2) K/uL PT (9.8-13.1) Seconds INR (0.9-1.2) pCO2 (35-45) mm/Hg pO2 (80-100) mm/Hg HCO3 (21-28) mmol/L ABG pH (7.35-7.45) ABG Total CO2 (22-28) mmol/L ABG O2 Saturation (95-98) % ABG Base Excess (-2.0-3.0) mmol/L Broderick Test ABG Potassium (3.6-5.2) mmol/L A-a O2 Difference mm/Hg Sodium 146 (132-148) mmol/L Chloride 108 H (98-107) mmol/L Glucose (75-110) mg/dL Lactate (0.7-2.1) mmol/L FiO2 % Potassium 4.3 (3.6-5.0) MMOL/L Carbon Dioxide 28 (22-30) mmol/L Anion Gap 14 (10-20) BUN 42 H (9-20) mg/dl Creatinine 1.8 H (0.8-1.5) mg/dL Est GFR ( Amer) 44 Est GFR (Non-Af Amer) 37 POC Glucose (mg/dL) 69 (65-110) mg/dL Random Glucose 76 (75-110) mg/dL Calcium 8.3 L (8.4-10.2) mg/dL Total Bilirubin 0.5 (0.2-1.3) mg/dl AST 45 (17-59) U/L ALT 41 (21-72) U/L Alkaline Phosphatase 99 (38-126) U/L Total Protein 6.6 (6.3-8.2) G/DL Albumin 3.3 L (3.5-5.0) g/dL Globulin 3.3 (2.2-3.9) gm/dL Albumin/Globulin Ratio 1.0 (1.0-2.1) Arterial Blood Potassium (3.6-5.2) mmol/L 09/23/17 09/23/17 09/23/17 Range/Units 16:57 16:35 07:48 WBC (4.8-10.8) K/uL RBC (4.40-5.90) Mil/uL Hgb (12.0-18.0) g/dL Hct (35.0-51.0) % MCV (80.0-94.0) fl MCH (27.0-31.0) pg MCHC (33.0-37.0) g/dL RDW (11.5-14.5) % Plt Count (130-400) K/uL MPV (7.2-11.7) fl Neut % (Auto) (50.0-75.0) % Lymph % (Auto) (20.0-40.0) % [place] % (Auto) (0.0-10.0) % Eos % (Auto) (0.0-4.0) % Baso % (Auto) (0.0-2.0) % Neut # (1.8-7.0) K/uL Lymph # (1.0-4.3) K/uL [place] # (0.0-0.8) K/uL Eos # (0.0-0.7) K/uL Baso # (0.0-0.2) K/uL PT (9.8-13.1) Seconds INR (0.9-1.2) pCO2 50 H (35-45) mm/Hg pO2 84 (80-100) mm/Hg HCO3 27.5 (21-28) mmol/L ABG pH 7.38 (7.35-7.45) ABG Total CO2 31.1 H (22-28) mmol/L ABG O2 Saturation 97.6 (95-98) % ABG Base Excess 3.4 H (-2.0-3.0) mmol/L Broderick Test Yes ABG Potassium 5.0 (3.6-5.2) mmol/L A-a O2 Difference 567.0 mm/Hg Sodium 141.0 (132-148) mmol/L Chloride 109.0 H (98-107) mmol/L Glucose 76 (75-110) mg/dL Lactate 1.0 (0.7-2.1) mmol/L FiO2 100.0 % Potassium (3.6-5.0) MMOL/L Carbon Dioxide (22-30) mmol/L Anion Gap (10-20) BUN (9-20) mg/dl Creatinine (0.8-1.5) mg/dL Est GFR ( Amer) Est GFR (Non-Af Amer) POC Glucose (mg/dL) 77 64 L (65-110) mg/dL Random Glucose (75-110) mg/dL Calcium (8.4-10.2) mg/dL Total Bilirubin (0.2-1.3) mg/dl AST (17-59) U/L ALT (21-72) U/L Alkaline Phosphatase (38-126) U/L Total Protein (6.3-8.2) G/DL Albumin (3.5-5.0) g/dL Globulin (2.2-3.9) gm/dL Albumin/Globulin Ratio (1.0-2.1) Arterial Blood Potassium 5.0 (3.6-5.2) mmol/L Laboratory Results - last 24 hr 09/23/17 09/23/17 09/23/17 07:48 16:35 16:57 WBC RBC Hgb Hct MCV MCH MCHC RDW Plt Count MPV Neut % (Auto) Lymph % (Auto) [place] % (Auto) Eos % (Auto) Baso % (Auto) Neut # Lymph # [place] # Eos # Baso # PT INR pCO2 50 H pO2 84 HCO3 27.5 ABG pH 7.38 ABG Total CO2 31.1 H ABG O2 Saturation 97.6 ABG Base Excess 3.4 H Broderick Test Yes ABG Potassium 5.0 A-a O2 Difference 567.0 Sodium 141.0 Chloride 109.0 H Glucose 76 Lactate 1.0 FiO2 100.0 Potassium Carbon Dioxide Anion Gap BUN Creatinine Est GFR ( Amer) Est GFR (Non-Af Amer) POC Glucose (mg/dL) 64 L 77 Random Glucose Calcium Total Bilirubin AST ALT Alkaline Phosphatase Total Protein Albumin Globulin Albumin/Globulin Ratio Arterial Blood Potassium 5.0 09/24/17 09/24/17 09/24/17 00:22 04:30 04:30 WBC 5.9 RBC 3.67 L Hgb 10.5 L D Hct 32.0 L MCV 87.2 MCH 28.6 MCHC 32.8 L RDW 19.2 H Plt Count 213 MPV 7.3 Neut % (Auto) 77.5 H Lymph % (Auto) 9.3 L [place] % (Auto) 12.8 H Eos % (Auto) 0.2 Baso % (Auto) 0.2 Neut # 4.6 Lymph # 0.6 L [place] # 0.8 Eos # 0.0 Baso # 0.0 PT INR pCO2 pO2 HCO3 ABG pH ABG Total CO2 ABG O2 Saturation ABG Base Excess Broderick Test ABG Potassium A-a O2 Difference Sodium 146 Chloride 108 H Glucose Lactate FiO2 Potassium 4.3 Carbon Dioxide 28 Anion Gap 14 BUN 42 H Creatinine 1.8 H Est GFR ( Amer) 44 Est GFR (Non-Af Amer) 37 POC Glucose (mg/dL) 69 Random Glucose 76 Calcium 8.3 L Total Bilirubin 0.5 AST 45 ALT 41 Alkaline Phosphatase 99 Total Protein 6.6 Albumin 3.3 L Globulin 3.3 Albumin/Globulin Ratio 1.0 Arterial Blood Potassium 09/24/17 09/24/17 09/24/17 04:30 06:12 11:03 WBC RBC Hgb Hct MCV MCH MCHC RDW Plt Count MPV Neut % (Auto) Lymph % (Auto) [place] % (Auto) Eos % (Auto) Baso % (Auto) Neut # Lymph # [place] # Eos # Baso # PT 37.4 H D INR 3.2 H D pCO2 pO2 HCO3 ABG pH ABG Total CO2 ABG O2 Saturation ABG Base Excess Broderick Test ABG Potassium A-a O2 Difference Sodium Chloride Glucose Lactate FiO2 Potassium Carbon Dioxide Anion Gap BUN Creatinine Est GFR ( Amer) Est GFR (Non-Af Amer) POC Glucose (mg/dL) 70 81 Random Glucose Calcium Total Bilirubin AST ALT Alkaline Phosphatase Total Protein Albumin Globulin Albumin/Globulin Ratio Arterial Blood Potassium Fingerstick Blood Sugar Results: 70 Assessment/Plan (1) Acute respiratory failure with hypoxia Current Visit: Yes Status: Acute Priority: High Comment: Acute respiratory failure secondary to likely aspiration pneumonia with pleural effusion in the setting of severe Respiratory muscle weakness Admitted to ICU care for hemodynamic and Respiratory monitoring IV Vancomycin and Piperacillin Sod/Tazobactam PRN Diuresis Strict I&O, negative fluid balance Aggressive pulmonary toilet, chest PT, suctioning nebulizer treatment Maintain aspiration precautions GI/DVT PPX (2) CANDELARIA (acute kidney injury) Current Visit: Yes Status: Deleted Priority: High Comment: Optimize blood pressure, hemodynamic monitoring and maintain end-organ Off all nephrotoxic medications Renally adjust medication dose (3) Altered mental status Current Visit: Yes Status: Acute Priority: High (4) Aspiration pneumonia Current Visit: No Status: Acute Priority: High (5) Pleural effusion, bilateral Current Visit: Yes Status: Acute Priority: High Comment: Chest CT scan ordered Will need to correct coagulopathy first before any drainage procedure (6) A-fib Current Visit: No Status: Chronic Priority: High Comment: Holding Metoprolol due to boarderline BP Holding Warfarin due to elevated INR (7) Seizure disorder Current Visit: No Status: Chronic Priority: Medium Comment: Resume amoTRIgine [Lamictal]
--- NOTE | 2017-09-24 13:54 | CP.PCM.PN ---
Subjective - Date & Time of Evaluation Date of Evaluation: 09/24/17 Time of Evaluation: 13:00 - Subjective Subjective: F/U Respiratory failure / Asp PNA Objective - Vital Signs/Intake and Output Vital Signs (last 24 hours): Temp Pulse Resp BP Pulse Ox 98.7 F 69 19 108/54 L 99 09/24/17 12:00 09/24/17 12:00 09/24/17 12:00 09/24/17 12:00 09/24/17 12:00 Intake and Output: 09/24/17 09/24/17 06:59 18:59 Intake Total 650 580 Balance 650 580 - Medications Medications: Current Medications Albuterol/Ipratropium (Duoneb 3 Mg/0.5 Mg (3 Ml) Ud) 3 ml INH RQ4 PRN PRN Reason: Shortness of Breath Piperacillin Sod/Tazobactam Sod (Zosyn 3.375 Gm Iv Premix) 3.375 gm in 50 mls @ 50 mls/hr IVPB Q6 YUKI PRN Reason: Protocol Last Admin: 09/24/17 09:05 Dose: 50 mls/hr Vancomycin HCl 1 gm/ Sodium (Chloride) 250 mls @ 250 mls/hr IVPB DAILY YUKI PRN Reason: Protocol Last Admin: 09/23/17 17:51 Dose: 250 mls/hr Dextrose/Sodium Chloride (Dextrose 5%-0.45% Ns 500 Ml) 500 mls @ 50 mls/hr IV .Q10H YUKI Stop: 09/25/17 07:52 Last Admin: 09/24/17 08:15 Dose: 50 mls/hr Lamotrigine (Lamictal) 25 mg PO BID YUKI Last Admin: 09/24/17 09:05 Dose: Not Given - Labs Labs: 09/24/17 04:30 09/24/17 04:30 PT 37.4 Seconds (9.8-13.1) H D 09/24/17 04:30 INR 3.2 (0.9-1.2) H D 09/24/17 04:30 APTT 68.0 Seconds (25.6-37.1) H D 09/23/17 09:57 - Constitutional Appears: No Acute Distress, Chronically Ill - Head Exam Head Exam: NORMAL INSPECTION - Eye Exam Eye Exam: PERRL Additional comments: Pupils sluggish - ENT Exam ENT Exam: Normal Exam - Neck Exam Neck Exam: Normal Inspection - Respiratory Exam Respiratory Exam: Decreased Breath Sounds (at bases), Rhonchi (b/l) - Cardiovascular Exam Cardiovascular Exam: Irregular Rhythm - GI/Abdominal Exam GI & Abdominal Exam: Soft, Normal Bowel Sounds - Extremities Exam Additional comments: 2+ pitting edema BLE - Neurological Exam Additional comments: Lethargic, no response, movements to pain stimuli. - Psychiatric Exam Additional comments: Lethargic - Skin Skin Exam: Warm Assessment and Plan (1) Acute respiratory failure with hypoxia Status: Acute (2) Aspiration pneumonia Status: Acute (3) Diastolic CHF, acute on chronic Status: Acute (4) Altered mental status Status: Acute (5) Pleural effusion, bilateral Status: Acute (6) Hx of seizure disorder Status: Chronic (7) A-fib Status: Chronic (8) CANDELARIA (acute kidney injury) Status: Acute (9) Hypothermia Status: Acute (10) HTN (hypertension) Status: Chronic - Assessment and Plan (Free Text) Plan: Continue Vanco, Zosyn, Duoneb and rest of Tx.
--- NOTE | 2017-09-24 16:41 | RAD ---
PROCEDURE: CHEST RADIOGRAPH, 1 VIEW HISTORY: S/P chest tube COMPARISON: 09/24/2017 FINDINGS: LUNGS: There is no significant interval change in consolidation in the right lung and dense consolidation in the left lung with near complete opacification. There is minimal aeration in the left lower lobe. No pneumothorax. CARDIOVASCULAR: Cannot be evaluated due to bilateral consolidations. OSSEOUS STRUCTURES: No significant abnormalities. VISUALIZED UPPER ABDOMEN: Normal. OTHER FINDINGS: None. IMPRESSION: No significant interval change in large left pleural effusion, underlying consolidation cannot be excluded. No significant interval change in moderate right pleural effusion and question of perihilar pulmonary edema in the right lung.
--- NOTE | 2017-09-24 16:52 | CP.PCM.CON ---
History of Present Illness - History of Present Illness History of Present Illness: CT Surgery: Dr Rascon Pt is a 77M w/ hx of CVA, seizure disorder, CHF. Pt brought to [facility] via EMS accompanied by his for worsening AMS for the past week. At the time of examination pt is unresponsive to verbal communication, but responds to pain. Upon work up CXR show bilateral effusions, with a near total opacification of the right side. Pt was admitted with INR of 5.6 and has since received 4 units of FFP. Surgery was consulted to drain the left side which is clearly worse on CXR. Multiple conversations were had between the , Dr Hernandez, Dr Escamilla and myself. The final decision was made to insert a pig-tail catheter to drain the fluid, as this is the least invasive of the options at this time. Risks, benefits of procedure we explained in detail and the consented to the procedure. Review of Systems - Review of Systems All systems: reviewed and no additional remarkable complaints except (as per hpi ) Past Patient History - Infectious Disease Hx of Infectious Diseases: None - Past Medical History & Family History Past Medical History?: Yes - Past Social History Smoking Status: Never Smoked Alcohol: None Drugs: Denies Home Situation {Lives}: With Family - CARDIAC Hx Atrial Fibrillation: Yes Hx Congestive Heart Failure: Yes Hx Hypertension: Yes Hx Peripheral Edema: Yes - PULMONARY Hx Sleep Apnea: Yes - NEUROLOGICAL Hx Seizures: Yes Hx Transient Ischemic Attacks (TIA): Yes - HEENT Hx HEENT Problems: No - RENAL Hx Chronic Kidney Disease: No - ENDOCRINE/METABOLIC Hx Endocrine Disorders: No - HEMATOLOGICAL/ONCOLOGICAL Hx Human Immunodeficiency Virus (HIV): No - INTEGUMENTARY Hx Dermatological Problems: No - MUSCULOSKELETAL/RHEUMATOLOGICAL Hx Musculoskeletal Disorders: Yes Hx Falls: Yes Hx Unsteady Gait: Yes - GASTROINTESTINAL Hx Gastrointestinal Disorders: No - GENITOURINARY/GYNECOLOGICAL Hx Genitourinary Disorders: Yes Hx Incontinence: Yes Hx Prostate Problems: Yes (BPH) - PSYCHIATRIC Hx Psychophysiologic Disorder: Yes Hx Hallucinations: Yes Hx Substance Use: No - SURGICAL HISTORY Hx Surgeries: No - ANESTHESIA Hx Anesthesia: No Meds Allergies/Adverse Reactions: Allergies Allergy/AdvReac Type Severity Reaction Status Date / Time EGG AdvReac HEADACHE Verified 09/23/17 07:32 seafoods Allergy SWELLING Uncoded 09/23/17 07:32 - Medications Medications: Current Medications Albuterol/Ipratropium (Duoneb 3 Mg/0.5 Mg (3 Ml) Ud) 3 ml INH RQ4 PRN PRN Reason: Shortness of Breath Piperacillin Sod/Tazobactam Sod (Zosyn 3.375 Gm Iv Premix) 3.375 gm in 50 mls @ 50 mls/hr IVPB Q6 YUKI PRN Reason: Protocol Last Admin: 09/24/17 09:05 Dose: 50 mls/hr Vancomycin HCl 1 gm/ Sodium (Chloride) 250 mls @ 250 mls/hr IVPB DAILY YUKI PRN Reason: Protocol Last Admin: 09/24/17 12:00 Dose: 250 mls/hr Dextrose/Sodium Chloride (Dextrose 5%-0.45% Ns 500 Ml) 500 mls @ 50 mls/hr IV .Q10H [facility] Stop: 09/25/17 07:52 Last Admin: 09/24/17 08:15 Dose: 50 mls/hr Lamotrigine (Lamictal) 25 mg PO BID [facility] Last Admin: 09/24/17 09:05 Dose: Not Given Physical Exam - Constitutional Appears: Non-toxic, No Acute Distress - ENT Exam ENT Exam: Mucous Membranes Moist - Respiratory Exam Respiratory Exam: Decreased Breath Sounds (worse on left side), Respiratory Distress. absent: Chest Wall Tenderness, Prolonged Expiratory Phase - Cardiovascular Exam Cardiovascular Exam: REGULAR RHYTHM. absent: Tachycardia - GI/Abdominal Exam GI & Abdominal Exam: absent: Firm, Guarding, Hernia - Extremities Exam Extremities exam: Positive for: pedal edema Results - Vital Signs Recent Vital Signs: Last Vital Signs Temp 98.7 F 09/24/17 12:00 Pulse 69 09/24/17 12:00 Resp 20 09/24/17 16:03 BP 108/54 L 09/24/17 12:00 Pulse Ox 98 09/24/17 15:00 - Labs Result Diagrams: 09/24/17 04:30 09/24/17 04:30 Labs: Laboratory Results - last 24 hr 09/23/17 09/23/17 09/24/17 07:48 16:57 00:22 WBC RBC Hgb Hct MCV MCH MCHC RDW Plt Count MPV Neut % (Auto) Lymph % (Auto) [place] % (Auto) Eos % (Auto) Baso % (Auto) Neut # Lymph # [place] # Eos # Baso # PT INR Sodium Potassium Chloride Carbon Dioxide Anion Gap BUN Creatinine Est GFR ( Amer) Est GFR (Non-Af Amer) POC Glucose (mg/dL) 64 L 77 69 Random Glucose Calcium Total Bilirubin AST ALT Alkaline Phosphatase Total Protein Albumin Globulin Albumin/Globulin Ratio 09/24/17 09/24/17 09/24/17 04:30 04:30 04:30 WBC 5.9 RBC 3.67 L Hgb 10.5 L D Hct 32.0 L MCV 87.2 MCH 28.6 MCHC 32.8 L RDW 19.2 H Plt Count 213 MPV 7.3 Neut % (Auto) 77.5 H Lymph % (Auto) 9.3 L [place] % (Auto) 12.8 H Eos % (Auto) 0.2 Baso % (Auto) 0.2 Neut # 4.6 Lymph # 0.6 L [place] # 0.8 Eos # 0.0 Baso # 0.0 PT 37.4 H D INR 3.2 H D Sodium 146 Potassium 4.3 Chloride 108 H Carbon Dioxide 28 Anion Gap 14 BUN 42 H Creatinine 1.8 H Est GFR ( Amer) 44 Est GFR (Non-Af Amer) 37 POC Glucose (mg/dL) Random Glucose 76 Calcium 8.3 L Total Bilirubin 0.5 AST 45 ALT 41 Alkaline Phosphatase 99 Total Protein 6.6 Albumin 3.3 L Globulin 3.3 Albumin/Globulin Ratio 1.0 09/24/17 09/24/17 06:12 11:03 WBC RBC Hgb Hct MCV MCH MCHC RDW Plt Count MPV Neut % (Auto) Lymph % (Auto) [place] % (Auto) Eos % (Auto) Baso % (Auto) Neut # Lymph # [place] # Eos # Baso # PT INR Sodium Potassium Chloride Carbon Dioxide Anion Gap BUN Creatinine Est GFR ( Amer) Est GFR (Non-Af Amer) POC Glucose (mg/dL) 70 81 Random Glucose Calcium Total Bilirubin AST ALT Alkaline Phosphatase Total Protein Albumin Globulin Albumin/Globulin Ratio Assessment & Plan - Assessment and Plan (Free Text) Assessment: 77M with bilateral pleural effusions; likely 2/2 decompensated CHF Plan: Pig-tail placed at bedside - good return and is currently draining straw colored fluid CXR confirms placement will monitor output with tentative plan for removal tomorrow AM as per wifes wishes d/w Dr Tarah Valdes, PGY3 - Date & Time Date: 09/24/17 Time: 16:55
--- NOTE | 2017-09-24 17:15 | CP.CCUPN ---
CCU Subjective - Physician Review Subjective (Free Text): 09/23/17 17:47 The patient was Seen/interviewed and examined by me at the bedside, Medical records reviewed and Management issues were discussed and formulated with the house staff. 77 Years old Male with Multiple medical conditions including Atrial Fibrillation (on coumadin), CHF, CVA, HTN, Peripheral Edema, Seizures, Sleep Apnea, TIA Who was brought by EMS along with his to the Emergency Department for AMS Per , she was told by Dr. Escamilla to come to ED for "observation" She states that he has been on antibiotics for cough for 2 days and now devolop hallucination secondary to antibiotics. In the ER he was very hypothermic, lethargic but respond to basic commands CXR showing bilateral pleural effusion and bibasilar opacity Tachypnea, placed on 50% VM Blood culture drawn and Received one dose of IV Rocephin and Zithromax Admitted to the ICU for Acute hypercarbic and Hypoxemic respiratory failure Chest CT scan revealed moderate bilateral pleural effusion with atelectasis 09/24, Underwent Left pig tail placement today with about 500 serious fluid drained so far Today he is still Lethargic, but moves arms to tactile and verbal stimuli Clinically improving and hemodynamically stable No Vasopressors Afebrile A-Fib on monitor, HR controlled Comfortable, NAD Remains on high flow NC with high 90s saturations Elevated INR, received 2U FFP overnight and another 2U today during chest tube placement. Admission Labs revealed no Leucocytosis, Coagulopathy with INR of 5.6 and PTT of 68, worsening renal function BUN/Cr up to 45/1.5 This Labs revealed no Leucocytosis, Coagulopathy with INR of 3.2 and worsening renal function BUN/Cr up to 45/1.5--->42/1.8 Started on gentle hydrations for Azotemia and Hypoglycemia Critical Care Time Spent (in minutes): 56 CCU Objective - Vital Signs / Intake & Output Vital Signs (Last 4 hours): Vital Signs Temp Pulse Resp BP Pulse Ox 09/24/17 16:03 20 09/24/17 16:00 97.8 F 84 25 H 115/57 L 96 09/24/17 15:00 98 Intake and Output (Last 8hrs): Intake & Output 09/24/17 09/24/17 09/24/17 06:59 14:59 22:59 Intake Total 650 580 Balance 650 580 Intake: IV 650 200 Intake, Piggyback 50 Blood Product 330 Other: # Voids Urine, Voided 1 - Physical Exam Head: Positive for: Atraumatic, Normocephalic. Negative for: Tenderness, Contusion, Swelling, Ecchymosis, Abrasion Pupils: Positive for: PERRL, Sluggish. Negative for: Non-Reactive, Pinpoint Extroacular Muscles: Positive for: EOMI Conjunctiva: Positive for: Normal. Negative for: Injected, Icteric Ears: Positive for: Normal Mouth: Positive for: Moist Mucous Membranes Pharnyx: Positive for: Normal. Negative for: ERYTHEMA Neck: Positive for: Normal Range of Motion, Trachea Midline. Negative for: Meningeal Signs, MIDLINE TENDERNESS, Paraspinal Tenderness, JVD, Lymphadenopathy , Bruit, Other Respiratory/Chest: Positive for: Decreased Breath Sounds, Rhonchi, Tachypneic. Negative for: Respiratory Distress, Accessory Muscle Use, Wheezes, Rales Cardiovascular: Positive for: Irregular Rhythm, Peripheal Pulses Present. Negative for: Murmurs, Normal S1, S2, Tachycardic, Bradycardic Abdomen: Positive for: Normal Bowel Sounds. Negative for: Tenderness, Distention, Peritoneal Signs Psychiatric: Positive for: Alert - Medications Active Medications: Active Medications Generic Name Dose Route Start Last Admin Trade Name Freq PRN Reason Stop Dose Admin Albuterol/Ipratropium 3 ml 09/23/17 17:59 Duoneb 3 Mg/0.5 Mg (3 Ml) Ud INH RQ4 PRN Shortness of Breath Piperacillin Sod/Tazobactam Sod 3.375 gm in 50 mls @ 50 mls/hr 09/23/17 17:45 09/24/17 16:53 Zosyn 3.375 Gm Iv Premix IVPB 50 mls/hr Q6 YUKI Administration Protocol Vancomycin HCl 1 gm/ Sodium 250 mls @ 250 mls/hr 09/23/17 17:44 09/24/17 12: 00 Chloride IVPB 250 mls/hr DAILY YUKI Administration Protocol Dextrose/Sodium Chloride 500 mls @ 50 mls/hr 09/24/17 08:00 09/24/17 08:15 Dextrose 5%-0.45% Ns 500 Ml IV 09/25/17 07:52 50 mls/hr .Q10H YUKI Administration Lamotrigine 25 mg 09/23/17 18:15 09/24/17 16:54 Lamictal PO Not Given BID YUKI - Patient Studies Lab Studies: Microbiology Studies 09/23/17 12:05 Urine Culture - Final Urine,Catheterized No Growth (<1,000 CFU/ML) 09/23/17 08:15 Blood Culture - Preliminary Blood NO GROWTH AFTER 24 HOURS 09/23/17 08:00 Blood Culture - Preliminary Blood NO GROWTH AFTER 24 HOURS Lab Studies 09/24/17 09/24/17 09/24/17 Range/Units 11:03 06:12 04:30 WBC (4.8-10.8) K/uL RBC (4.40-5.90) Mil/uL Hgb (12.0-18.0) g/dL Hct (35.0-51.0) % MCV (80.0-94.0) fl MCH (27.0-31.0) pg MCHC (33.0-37.0) g/dL RDW (11.5-14.5) % Plt Count (130-400) K/uL MPV (7.2-11.7) fl Neut % (Auto) (50.0-75.0) % Lymph % (Auto) (20.0-40.0) % [place] % (Auto) (0.0-10.0) % Eos % (Auto) (0.0-4.0) % Baso % (Auto) (0.0-2.0) % Neut # (1.8-7.0) K/uL Lymph # (1.0-4.3) K/uL [place] # (0.0-0.8) K/uL Eos # (0.0-0.7) K/uL Baso # (0.0-0.2) K/uL PT 37.4 H D (9.8-13.1) Seconds INR 3.2 H D (0.9-1.2) Sodium (132-148) mmol/l Potassium (3.6-5.0) MMOL/L Chloride (98-107) mmol/L Carbon Dioxide (22-30) mmol/L Anion Gap (10-20) BUN (9-20) mg/dl Creatinine (0.8-1.5) mg/dL Est GFR ( Amer) Est GFR (Non-Af Amer) POC Glucose (mg/dL) 81 70 (65-110) mg/dL Random Glucose (75-110) mg/dL Calcium (8.4-10.2) mg/dL Total Bilirubin (0.2-1.3) mg/dl AST (17-59) U/L ALT (21-72) U/L Alkaline Phosphatase (38-126) U/L Total Protein (6.3-8.2) G/DL Albumin (3.5-5.0) g/dL Globulin (2.2-3.9) gm/dL Albumin/Globulin Ratio (1.0-2.1) 09/24/17 09/24/17 09/24/17 Range/Units 04:30 04:30 00:22 WBC 5.9 (4.8-10.8) K/uL RBC 3.67 L (4.40-5.90) Mil/uL Hgb 10.5 L D (12.0-18.0) g/dL Hct 32.0 L (35.0-51.0) % MCV 87.2 (80.0-94.0) fl MCH 28.6 (27.0-31.0) pg MCHC 32.8 L (33.0-37.0) g/dL RDW 19.2 H (11.5-14.5) % Plt Count 213 (130-400) K/uL MPV 7.3 (7.2-11.7) fl Neut % (Auto) 77.5 H (50.0-75.0) % Lymph % (Auto) 9.3 L (20.0-40.0) % [place] % (Auto) 12.8 H (0.0-10.0) % Eos % (Auto) 0.2 (0.0-4.0) % Baso % (Auto) 0.2 (0.0-2.0) % Neut # 4.6 (1.8-7.0) K/uL Lymph # 0.6 L (1.0-4.3) K/uL [place] # 0.8 (0.0-0.8) K/uL Eos # 0.0 (0.0-0.7) K/uL Baso # 0.0 (0.0-0.2) K/uL PT (9.8-13.1) Seconds INR (0.9-1.2) Sodium 146 (132-148) mmol/l Potassium 4.3 (3.6-5.0) MMOL/L Chloride 108 H (98-107) mmol/L Carbon Dioxide 28 (22-30) mmol/L Anion Gap 14 (10-20) BUN 42 H (9-20) mg/dl Creatinine 1.8 H (0.8-1.5) mg/dL Est GFR ( Amer) 44 Est GFR (Non-Af Amer) 37 POC Glucose (mg/dL) 69 (65-110) mg/dL Random Glucose 76 (75-110) mg/dL Calcium 8.3 L (8.4-10.2) mg/dL Total Bilirubin 0.5 (0.2-1.3) mg/dl AST 45 (17-59) U/L ALT 41 (21-72) U/L Alkaline Phosphatase 99 (38-126) U/L Total Protein 6.6 (6.3-8.2) G/DL Albumin 3.3 L (3.5-5.0) g/dL Globulin 3.3 (2.2-3.9) gm/dL Albumin/Globulin Ratio 1.0 (1.0-2.1) 09/23/17 Range/Units 07:48 WBC (4.8-10.8) K/uL RBC (4.40-5.90) Mil/uL Hgb (12.0-18.0) g/dL Hct (35.0-51.0) % MCV (80.0-94.0) fl MCH (27.0-31.0) pg MCHC (33.0-37.0) g/dL RDW (11.5-14.5) % Plt Count (130-400) K/uL MPV (7.2-11.7) fl Neut % (Auto) (50.0-75.0) % Lymph % (Auto) (20.0-40.0) % [place] % (Auto) (0.0-10.0) % Eos % (Auto) (0.0-4.0) % Baso % (Auto) (0.0-2.0) % Neut # (1.8-7.0) K/uL Lymph # (1.0-4.3) K/uL [place] # (0.0-0.8) K/uL Eos # (0.0-0.7) K/uL Baso # (0.0-0.2) K/uL PT (9.8-13.1) Seconds INR (0.9-1.2) Sodium (132-148) mmol/l Potassium (3.6-5.0) MMOL/L Chloride (98-107) mmol/L Carbon Dioxide (22-30) mmol/L Anion Gap (10-20) BUN (9-20) mg/dl Creatinine (0.8-1.5) mg/dL Est GFR ( Amer) Est GFR (Non-Af Amer) POC Glucose (mg/dL) 64 L (65-110) mg/dL Random Glucose (75-110) mg/dL Calcium (8.4-10.2) mg/dL Total Bilirubin (0.2-1.3) mg/dl AST (17-59) U/L ALT (21-72) U/L Alkaline Phosphatase (38-126) U/L Total Protein (6.3-8.2) G/DL Albumin (3.5-5.0) g/dL Globulin (2.2-3.9) gm/dL Albumin/Globulin Ratio (1.0-2.1) Laboratory Results - last 24 hr 09/23/17 09/24/17 09/24/17 07:48 00:22 04:30 WBC 5.9 RBC 3.67 L Hgb 10.5 L D Hct 32.0 L MCV 87.2 MCH 28.6 MCHC 32.8 L RDW 19.2 H Plt Count 213 MPV 7.3 Neut % (Auto) 77.5 H Lymph % (Auto) 9.3 L [place] % (Auto) 12.8 H Eos % (Auto) 0.2 Baso % (Auto) 0.2 Neut # 4.6 Lymph # 0.6 L [place] # 0.8 Eos # 0.0 Baso # 0.0 PT INR Sodium Potassium Chloride Carbon Dioxide Anion Gap BUN Creatinine Est GFR ( Amer) Est GFR (Non-Af Amer) POC Glucose (mg/dL) 64 L 69 Random Glucose Calcium Total Bilirubin AST ALT Alkaline Phosphatase Total Protein Albumin Globulin Albumin/Globulin Ratio 09/24/17 09/24/17 09/24/17 04:30 04:30 06:12 WBC RBC Hgb Hct MCV MCH MCHC RDW Plt Count MPV Neut % (Auto) Lymph % (Auto) [place] % (Auto) Eos % (Auto) Baso % (Auto) Neut # Lymph # [place] # Eos # Baso # PT 37.4 H D INR 3.2 H D Sodium 146 Potassium 4.3 Chloride 108 H Carbon Dioxide 28 Anion Gap 14 BUN 42 H Creatinine 1.8 H Est GFR ( Amer) 44 Est GFR (Non-Af Amer) 37 POC Glucose (mg/dL) 70 Random Glucose 76 Calcium 8.3 L Total Bilirubin 0.5 AST 45 ALT 41 Alkaline Phosphatase 99 Total Protein 6.6 Albumin 3.3 L Globulin 3.3 Albumin/Globulin Ratio 1.0 09/24/17 11:03 WBC RBC Hgb Hct MCV MCH MCHC RDW Plt Count MPV Neut % (Auto) Lymph % (Auto) [place] % (Auto) Eos % (Auto) Baso % (Auto) Neut # Lymph # [place] # Eos # Baso # PT INR Sodium Potassium Chloride Carbon Dioxide Anion Gap BUN Creatinine Est GFR ( Amer) Est GFR (Non-Af Amer) POC Glucose (mg/dL) 81 Random Glucose Calcium Total Bilirubin AST ALT Alkaline Phosphatase Total Protein Albumin Globulin Albumin/Globulin Ratio Fingerstick Blood Sugar Results: 70 Review of Systems - Review of Systems Systems not reviewed;Unavailable: Altered Mental Status Critical Care Progress Note - Extremities/Vascular Does the Patient have a Central Venous Catheter?: No Does the Patient need a Central Venous Catheter?: No Does the Patient have a Wang Catheter?: No Does the Patient need a Wang Catheter?: No - Prophylaxis GI Prophylaxis GI: Pepsid - Prophylaxis DVT Prophylaxis DVT: Not Indicated (Due to elevated INR) Assessment/Plan (1) Acute respiratory failure with hypoxia Current Visit: Yes Status: Acute Priority: High Comment: Acute hypercarbic and Hypoxemic respiratory failure secondary to likely aspiration pneumonia with pleural effusion in the setting of severe Respiratory muscle weakness Admitted to ICU care for hemodynamic and Respiratory monitoring IV Vancomycin and Piperacillin Sod/Tazobactam PRN Diuresis Strict I&O, negative fluid balance Aggressive pulmonary toilet, chest PT, suctioning nebulizer treatment Maintain aspiration precautions GI/DVT PPX (2) CANDELARIA (acute kidney injury) Current Visit: Yes Status: Deleted Priority: High Comment: Optimize blood pressure, hemodynamic monitoring and maintain end-organ Gentle hydraions with D5 1/2NS at 50 ml/H Off all nephrotoxic medications Renally adjust medication dose (3) Altered mental status Current Visit: Yes Status: Acute Priority: High Comment: Toxic/metabolic encephalopathy, multifactorial in the sitting of Acute hypercarbic and Hypoxemic respiratory failure (4) Aspiration pneumonia Current Visit: No Status: Acute Priority: High (5) Pleural effusion, bilateral Current Visit: Yes Status: Acute Priority: High Comment: corrected coagulopathy 09/24, Underwent Left pig tail placement today with about 500 serious fluid drained so far (6) A-fib Current Visit: No Status: Chronic Priority: High Comment: Holding Metoprolol due to boarderline BP Holding Warfarin due to elevated INR (7) Seizure disorder Current Visit: No Status: Chronic Priority: Medium Comment: Resume amoTRIgine [Lamictal]
--- NOTE | 2017-09-24 17:34 | PCM.PROC ---
Procedures Attestation:: I certify that I have explained the specified Operation(s) or Procedure(s), risks, benefits and reasonable alternatives to the Patient and/or other person responsible. The opportunity was given to ask questions and all questions answered - Chest Tube Chest Tube Location: Lateral Chest Left, Mid-Axillary Left Size of Tube (cm): 8 (8Fr Pigtail) Chest Tube Procedure: Chlorhexidine Tube Sutured to Skin: No Sterile Dressing Applied: Yes Anesthesia: Lidocaine 1% Volume Anesthetic (mls): 5 Incision Made With: #11 blade Post Procedure: sterile dressing applied, air occlusive dressing Leija of Air [place]: No Tube Drainage: fluid Amount of Initial Drainage: 500 Post Procedure CXR?: Yes Patient Tolerated Procedure: Yes
[2017-09-24 18:49] LABS: BODY FLUID TYPE PLEURAL
[2017-09-24 19:15] LABS: BF GROSS APPEARANCE BLOODY (CLEAR)
[2017-09-24 19:32] LABS: AMYLASE,BODY FLUID < 30 mg/dL (NONE ESTABLISHED); GLUCOSE,BODY FLUID 80 mg/dL (NONE ESTABLISHED)
[2017-09-24 19:37] LABS: TOTAL PROTEIN,BODY FLUID 3.1 g/dL (NONE ESTABLISHED)
[2017-09-24 20:00] LABS: BODY FLUID MONO/MACROPHAGE 17 % (0-0); BODY FLUID TOTAL COUNT 100 (0-0)
--- NOTE | 2017-09-25 01:32 | CP.PCM.CON ---
History of Present Illness - History of Present Illness History of Present Illness: Jerome is a 77 year old male who was brought by EMS along with his to the Emergency Department. Per , she was told by Dr. Escamilla to come to ED for "observation". She states that he has been on antibiotics for cough for 2 days. Per , hallucination secondary to antibiotics. At the time of examination by Chest Surgery pt is unresponsive to verbal communication, but responds to pain. Upon work up CXR show bilateral effusions , with a near total opacification of the right side. Pt was admitted with INR of 5.6 and has since received 4 units of FFP. Surgery was consulted to drain the left side which is clearly worse on CXR. Tube Drainage: fluid Amount of Initial Drainage: 500 Post Procedure CXR?: Yes Patient Tolerated Procedure: Yes He has a H/O Seizure Disorder and is on no medicine for Seizures, except Po Lamictal 25 mg QD. The is not allowing to increase the dose of Lamictal as she is very protective to her . There is no recent Seizures documented over the last 7 months and may be much longer. He was on few other medicine for seizures, but they not continued as the thought they are causing him lethargy. PMD: Dr. Escamilla Past Medical History Reviewed: Historical Data, Nursing Documentation, Vital Signs Vital Signs: Last Vital Signs Temp Pulse Resp BP Pulse Ox 98 09/23/17 07:33 - Medical History PMH: Atrial Fibrillation, CHF, CVA, HTN, Peripheral Edema, Seizures, Sleep Apnea , TIA Denies: HIV, Chronic Kidney Disease - Family History Family History: States: Unknown Family Hx - Home Medications Home Medications: Ambulatory Orders Medication Instructions Recorded Dutasteride [Avodart] 0.5 mg PO DAILY 12/14/16 lamoTRIgine [Lamictal] 25 mg PO DAILY 04/15/17 Ascorbic Acid [Vitamin C 500 mg 1 tab PO DAILY 09/23/17 Tab] Digoxin [Lanoxin] 0.0625 mg PO DAILY 09/23/17 Diltiazem HCl [Cardizem LA] 360 mg PO DAILY 09/23/17 Furosemide [Lasix] 40 mg PO DAILY 09/23/17 Metoprolol Succinate [Toprol XL] 25 mg PO DAILY 09/23/17 Mv,Min10/Folic Acid/D3/Ala/Lut 1 tab PO DAILY 09/23/17 [Strovite One Caplet] Vitamin E [Vitamin E] 1 cap PO DAILY 09/23/17 Warfarin [Coumadin] 5 mg PO DAILY 09/23/17 Zinc Sulfate [Orazinc] 1 cap PO DAILY 09/23/17 - Allergies Allergies/Adverse Reactions: Allergies Allergy/AdvReac Type Severity Reaction Status Date / Time EGG AdvReac HEADACHE Verified 09/23/17 07:32 seafoods Allergy SWELLING Uncoded 09/23/17 07:32 Review of Systems Review Of Systems: ROS cannot be obtained secondary to pt's inabilty to answer questions. (due to patient's clincal Condition) Physical Exam - Reviewed Nursing Documentation Reviewed: Yes Vital Signs Reviewed: Yes - Physical Exam Appears: Negative for: No Acute Distress Eye Exam: Positive for: Normal appearance Cardiovascular/Chest: Positive for: Regular Rate, Rhythm Respiratory: Positive for: Normal Breath Sounds Rectal: Positive for: Other (Rectal Temp 90 C) Neurologic/Psych: Positive for: Other (Lethargic, non-verbal, minimal responsive to verbal stimuli) - ECG Interpretation Of ECG: Ventricular-paced @ 60. O2 Sat by Pulse Oximetry: 98 (RA) Pulse Ox Interpretation: Normal - Core Measure Core Measure Indicators: Pneumonia - Critical Care Total Time (In Min): 45 Medical Decision Making Medical Decision Making: Time: 07:52 Initial Impression: Septic Work up Initial Plan: - EKG - CMP - CBC - Partial Thromboplastin Time - Prothrombin Time - Portable Chest X-Ray - Blood culture - Urine Culture - Influenza A B - Urinalysis Pt rectal temp 90.6, Juliet hugger placed, septic workup initiated. Time: 08:37 - Consulted with Dr. Escamilla IMPRESSION: Interval unipolar permanent cardiac pacemaker placement noted as discussed above. No pneumothorax bilaterally. Bilateral pleural effusions are identified increase of left and likely as an interval finding at the right but limited. Limited infiltrates of the mid to inferior bilateral lung zones are not excluded. Mild CHF is in question. IMPRESSION of CT Brain: No acute intracranial abnormalities. No significant findings to account for the clinical presentation. No significant interval change compared to the prior examination(s). IMPRESSION: (1) Acute respiratory failure with hypoxia Current Visit: Yes Status: Acute Comment: Acute respiratory failure secondary to likely aspiration pneumonia with pleural effusion in the setting of severe Respiratory muscle weakness Admitted to ICU care for hemodynamic and Respiratory monitoring IV Vancomycin and Piperacillin Sod/Tazobactam PRN Diuresis Strict I&O, negative fluid balance Aggressive pulmonary toilet, chest PT, suctioning nebulizer treatment Maintain aspiration precautions GI/DVT PPX (2) CANDELARIA (acute kidney injury) Current Visit: Yes Status: Acute Priority: High Comment: Optimize blood pressure, hemodynamic monitoring and maintain end-organ Off all nephrotoxic medications Renally adjust medication dose (3) Altered mental status Current Visit: Yes Status: Acute Priority: High (4) Aspiration pneumonia Current Visit: No Status: Acute (5) Pleural effusion, bilateral Current Visit: Yes Status: Acute Priority: High Comment: Chest CT scan ordered Will need to correct coagulopathy first before any drainage procedure (6) A-fib Current Visit: No Status: Chronic Priority: High Comment: Holding Metoprolol due to boarderline BP Holding Warfarin due to elevated INR (7) Seizure disorder Current Visit: No Status: Chronic Priority: Medium Comment: Resume amoTRIgine [Lamictal] Past Patient History - Infectious Disease Hx of Infectious Diseases: None - Past Medical History & Family History Past Medical History?: Yes - Past Social History Smoking Status: Never Smoked Alcohol: None Drugs: Denies Home Situation {Lives}: With Family - CARDIAC Hx Atrial Fibrillation: Yes Hx Congestive Heart Failure: Yes Hx Hypertension: Yes Hx Peripheral Edema: Yes - PULMONARY Hx Sleep Apnea: Yes - NEUROLOGICAL Hx Seizures: Yes Hx Transient Ischemic Attacks (TIA): Yes - HEENT Hx HEENT Problems: No - RENAL Hx Chronic Kidney Disease: No - ENDOCRINE/METABOLIC Hx Endocrine Disorders: No - HEMATOLOGICAL/ONCOLOGICAL Hx Human Immunodeficiency Virus (HIV): No - INTEGUMENTARY Hx Dermatological Problems: No - MUSCULOSKELETAL/RHEUMATOLOGICAL Hx Musculoskeletal Disorders: Yes Hx Falls: Yes Hx Unsteady Gait: Yes - GASTROINTESTINAL Hx Gastrointestinal Disorders: No - GENITOURINARY/GYNECOLOGICAL Hx Genitourinary Disorders: Yes Hx Incontinence: Yes Hx Prostate Problems: Yes (BPH) - PSYCHIATRIC Hx Psychophysiologic Disorder: Yes Hx Hallucinations: Yes Hx Substance Use: No - SURGICAL HISTORY Hx Surgeries: No - ANESTHESIA Hx Anesthesia: No Meds Allergies/Adverse Reactions: Allergies Allergy/AdvReac Type Severity Reaction Status Date / Time EGG AdvReac HEADACHE Verified 09/23/17 07:32 seafoods Allergy SWELLING Uncoded 09/23/17 07:32 - Medications Medications: Current Medications Albuterol/Ipratropium (Duoneb 3 Mg/0.5 Mg (3 Ml) Ud) 3 ml INH RQ4 PRN PRN Reason: Shortness of Breath Famotidine (Pepcid) 20 mg IVP DAILY [facility] Piperacillin Sod/Tazobactam Sod (Zosyn 3.375 Gm Iv Premix) 3.375 gm in 50 mls @ 50 mls/hr IVPB Q6 [facility] PRN Reason: Protocol Last Admin: 09/24/17 22:59 Dose: 50 mls/hr Vancomycin HCl 1 gm/ Sodium (Chloride) 250 mls @ 250 mls/hr IVPB DAILY [facility] PRN Reason: Protocol Last Admin: 09/24/17 12:00 Dose: 250 mls/hr Dextrose/Sodium Chloride (Dextrose 5%-0.45% Ns 500 Ml) 500 mls @ 50 mls/hr IV .Q10H [facility] Stop: 09/25/17 07:52 Last Admin: 09/24/17 08:15 Dose: 50 mls/hr Lamotrigine (Lamictal) 25 mg PO BID [facility] Last Admin: 09/24/17 16:54 Dose: Not Given Physical Exam - Neurological Exam Additional comments: Mental Status: Sleepy, awakable, responds by localizing the pain and by grimacing. Non Verbal. no eye to eye contact Cranial Nerves II to XII: Pupils are equal, 2 mm round, regular sluggish, No facial asymmetry Central Tongue, intact Gag reflex Extra ocular muscles are not moving frequently Motor: Bilateral Rigidity Minimal movements of his extremities by painful stimulation DTR: hard to elicit Toes are equivocal Sensory: Minimal grimacing to pain Cerebellar: Unable Results - Vital Signs Recent Vital Signs: Last Vital Signs Temp 97.9 F 09/24/17 20:00 Pulse 91 H 09/24/17 22:00 Resp 30 H 09/24/17 23:32 BP 142/78 09/24/17 22:00 Pulse Ox 100 09/24/17 22:00 - Labs Result Diagrams: 09/26/17 04:20 09/25/17 04:45 Labs: Laboratory Results - last 24 hr 09/24/17 09/24/17 09/24/17 04:30 04:30 04:30 WBC 5.9 RBC 3.67 L Hgb 10.5 L D Hct 32.0 L MCV 87.2 MCH 28.6 MCHC 32.8 L RDW 19.2 H Plt Count 213 MPV 7.3 Neut % (Auto) 77.5 H Lymph % (Auto) 9.3 L [place] % (Auto) 12.8 H Eos % (Auto) 0.2 Baso % (Auto) 0.2 Neut # 4.6 Lymph # 0.6 L [place] # 0.8 Eos # 0.0 Baso # 0.0 PT 37.4 H D INR 3.2 H D Sodium 146 Potassium 4.3 Chloride 108 H Carbon Dioxide 28 Anion Gap 14 BUN 42 H Creatinine 1.8 H Est GFR ( Amer) 44 Est GFR (Non-Af Amer) 37 POC Glucose (mg/dL) Random Glucose 76 Calcium 8.3 L Total Bilirubin 0.5 AST 45 ALT 41 Alkaline Phosphatase 99 Total Protein 6.6 Albumin 3.3 L Globulin 3.3 Albumin/Globulin Ratio 1.0 Fluid Source Fluid Appearance Fluid WBC Fluid RBC Fluid Tot Cell Count Fluid Neutrophils Fluid Lymphocytes Fld Monocyte/Macrophag Fluid Glucose Fluid Total Protein Fluid LDH Fluid Amylase Fluid Triglycerides Fluid Comment 09/24/17 09/24/17 09/24/17 06:12 11:03 17:36 WBC RBC Hgb Hct MCV MCH MCHC RDW Plt Count MPV Neut % (Auto) Lymph % (Auto) [place] % (Auto) Eos % (Auto) Baso % (Auto) Neut # Lymph # [place] # Eos # Baso # PT INR Sodium Potassium Chloride Carbon Dioxide Anion Gap BUN Creatinine Est GFR ( Amer) Est GFR (Non-Af Amer) POC Glucose (mg/dL) 70 81 69 Random Glucose Calcium Total Bilirubin AST ALT Alkaline Phosphatase Total Protein Albumin Globulin Albumin/Globulin Ratio Fluid Source Fluid Appearance Fluid WBC Fluid RBC Fluid Tot Cell Count Fluid Neutrophils Fluid Lymphocytes Fld Monocyte/Macrophag Fluid Glucose Fluid Total Protein Fluid LDH Fluid Amylase Fluid Triglycerides Fluid Comment 09/24/17 09/24/17 09/24/17 18:00 18:00 18:00 WBC RBC Hgb Hct MCV MCH MCHC RDW Plt Count MPV Neut % (Auto) Lymph % (Auto) [place] % (Auto) Eos % (Auto) Baso % (Auto) Neut # Lymph # [place] # Eos # Baso # PT INR Sodium Potassium Chloride Carbon Dioxide Anion Gap BUN Creatinine Est GFR ( Amer) Est GFR (Non-Af Amer) POC Glucose (mg/dL) Random Glucose Calcium Total Bilirubin AST ALT Alkaline Phosphatase Total Protein Albumin Globulin Albumin/Globulin Ratio Fluid Source Pleural Fluid Appearance Bloody Fluid WBC 694.0 H Fluid RBC 99018.0 H Fluid Tot Cell Count 100 H Fluid Neutrophils 23.0 H Fluid Lymphocytes 60.0 H Fld Monocyte/Macrophag 17 H Fluid Glucose 80 Fluid Total Protein 3.1 Fluid LDH 240 Fluid Amylase < 30 Fluid Triglycerides 11 Fluid Comment Bloody 09/24/17 21:46 WBC RBC Hgb Hct MCV MCH MCHC RDW Plt Count MPV Neut % (Auto) Lymph % (Auto) [place] % (Auto) Eos % (Auto) Baso % (Auto) Neut # Lymph # [place] # Eos # Baso # PT INR Sodium Potassium Chloride Carbon Dioxide Anion Gap BUN Creatinine Est GFR ( Amer) Est GFR (Non-Af Amer) POC Glucose (mg/dL) 82 Random Glucose Calcium Total Bilirubin AST ALT Alkaline Phosphatase Total Protein Albumin Globulin Albumin/Globulin Ratio Fluid Source Fluid Appearance Fluid WBC Fluid RBC Fluid Tot Cell Count Fluid Neutrophils Fluid Lymphocytes Fld Monocyte/Macrophag Fluid Glucose Fluid Total Protein Fluid LDH Fluid Amylase Fluid Triglycerides Fluid Comment Assessment & Plan (1) CANDELARIA (acute kidney injury) Status: Acute (2) Acute respiratory failure Status: Acute Priority: High (3) Altered mental status Status: Acute Priority: High (4) Hypothermia Status: Acute (5) Pleural effusion, bilateral Status: Acute Priority: High (6) Pneumonia Status: Acute (7) Seizure disorder Assessment and Plan: There is no recent History of Seizures and the keeps on refusing any seizure medicine and fired all the neurologist involved in his treatment. Currently He has been Seizure free on 25 mg of Lamictal/day In cases of Hypoxia, high LFT are expected at any time and the need for Epilepsy medicine currently is not urgent as he is seizure free for so many months. We Can Always control his seizures with IV Ativan 2mg Q 6 hrs while at the Hospital or Rectal Diastat 10 mg TID while outside of the Hospital If there are any active seizures, we will Go up on his lamictal Gradually to 25 mg Q 12 Hrs X 1week, then 50 mg Q 12 hrs X 2weeks, then 100 mg Q 12 hrs X 1week, then 150 mg Q 12 hrs until the next seizure, if any. Maximum dose of lamictal is 250 mg Q 12 hrs. The total duration of treatment is 2 years after the Last seizure. We will get an EEG, but a CT Brain will be postponed until his improvement to avoid complications. Get 25 Hydroxy Vit D level. Status: Suspected (8) Encephalopathy Assessment and Plan: Secondary to his current condition explained He is expected to recover once the cause is treated. Status: Acute
--- NOTE | 2017-09-25 01:34 | CP.PCM.CON ---
History of Present Illness - History of Present Illness History of Present Illness: Consultation for atrial fibrillation on coumadin, s/p PPM HPI : 77-year-old male who was brought on September 23 by EMS along with his patient was told by Dr. Escamilla to come to the emergency department. According to the patient's by he has been on antibiotics Augmentin for upper respiratory tract infection for 2 days prior to presentation and then he subsequently started to have hallucinations secondary to the antibiotics. Apparently patient has prior cardiac history of atrial fibrillation sick sinus syndrome status post pacemaker placement that was done at [facility] in June 2017. Prior to this presentation patient was at subacute rehab for protracted hospitalization course that was over at [facility]. At the time of my evaluation he was obtunded and most of the history was obtained by his who was at the bedside. According to patient's he is fairly active and independent of activities of daily living but since getting sick in the summer his health status has significantly declined. He was recently diagnosed with it on Keppra and according to the his hallucinations started secondary to interaction of the antibiotics and with the Keppra. His heart rate was controlled mostly in the 90s on presentation he was coagulopathic for which she had received FFP and had undergone bilateral thoracentesis as he was noted to have bilateral pleural effusions. Patient was obtunded and was not able to provide any information and all the history was obtained by review of records and talking to the patient's . Past medical history significant for atrial fibrillation for which he has been maintained on oral anticoagulation with Coumadin diastolic congestive heart failure status post pacemaker placement that was done in June 2017 at [facility] hypertension peripheral edema seizures sleep apnea TIA. As per the ambulatory record his home medications included Avodart Lamictal vitamin C he was also on digoxin 0.0625 mg p.o. daily Cardizem Lasix Toprol-XL vitamin A Coumadin and zinc patient apparently is allergic to eggs and seafood's Patient on presentation was also hypothermic and will had bear hugger placed and sepsis workup was initiated with panel for his CBCs and electrolyte panel coagulopathy along with influenza blood cultures urine cultures. Review of Systems - Review of Systems Systems not reviewed;Unavailable: Acuity of Condition, Altered Mental Status - Constitutional Constitutional: As Per HPI, Lethargy - EENT Eyes: As Per HPI Nose/Mouth/Throat: As Per HPI - Cardiovascular Cardiovascular: As Per HPI, Edema, Irregular Heart Rhythm - Respiratory Respiratory: As Per HPI, Cough - Gastrointestinal Gastrointestinal: As Per HPI - Genitourinary Genitourinary: As Per HPI - Reproductive: Male Reproductive:Male: As Per HPI - Musculoskeletal Musculoskeletal: As Per HPI - Integumentary Integumentary: As Per HPI - Neurological Neurological: As Per HPI - Psychiatric Psychiatric: As Per HPI - Endocrine Endocrine: As Per HPI - Hematologic/Lymphatic Hematologic: As Per HPI Past Patient History - Infectious Disease Hx of Infectious Diseases: None - Past Medical History & Family History Past Medical History?: Yes - Past Social History Smoking Status: Never Smoked Alcohol: None Drugs: Denies Home Situation {Lives}: With Family - CARDIAC Hx Atrial Fibrillation: Yes Hx Congestive Heart Failure: Yes Hx Hypertension: Yes Hx Peripheral Edema: Yes - PULMONARY Hx Sleep Apnea: Yes - NEUROLOGICAL Hx Seizures: Yes Hx Transient Ischemic Attacks (TIA): Yes - HEENT Hx HEENT Problems: No - RENAL Hx Chronic Kidney Disease: No - ENDOCRINE/METABOLIC Hx Endocrine Disorders: No - HEMATOLOGICAL/ONCOLOGICAL Hx Human Immunodeficiency Virus (HIV): No - INTEGUMENTARY Hx Dermatological Problems: No - MUSCULOSKELETAL/RHEUMATOLOGICAL Hx Musculoskeletal Disorders: Yes Hx Falls: Yes Hx Unsteady Gait: Yes - GASTROINTESTINAL Hx Gastrointestinal Disorders: No - GENITOURINARY/GYNECOLOGICAL Hx Genitourinary Disorders: Yes Hx Incontinence: Yes Hx Prostate Problems: Yes (BPH) - PSYCHIATRIC Hx Psychophysiologic Disorder: Yes Hx Hallucinations: Yes Hx Substance Use: No - SURGICAL HISTORY Hx Surgeries: No - ANESTHESIA Hx Anesthesia: No Meds Allergies/Adverse Reactions: Allergies Allergy/AdvReac Type Severity Reaction Status Date / Time EGG AdvReac HEADACHE Verified 09/23/17 07:32 seafoods Allergy SWELLING Uncoded 09/23/17 07:32 - Medications Medications: Current Medications Albuterol/Ipratropium (Duoneb 3 Mg/0.5 Mg (3 Ml) Ud) 3 ml INH RQ4 PRN PRN Reason: Shortness of Breath Famotidine (Pepcid) 20 mg IVP DAILY [facility] Piperacillin Sod/Tazobactam Sod (Zosyn 3.375 Gm Iv Premix) 3.375 gm in 50 mls @ 50 mls/hr IVPB Q6 [facility] PRN Reason: Protocol Last Admin: 09/24/17 22:59 Dose: 50 mls/hr Vancomycin HCl 1 gm/ Sodium (Chloride) 250 mls @ 250 mls/hr IVPB DAILY [facility] PRN Reason: Protocol Last Admin: 09/24/17 12:00 Dose: 250 mls/hr Dextrose/Sodium Chloride (Dextrose 5%-0.45% Ns 500 Ml) 500 mls @ 50 mls/hr IV .Q10H [facility] Stop: 09/25/17 07:52 Last Admin: 09/24/17 08:15 Dose: 50 mls/hr Lamotrigine (Lamictal) 25 mg PO BID [facility] Last Admin: 09/24/17 16:54 Dose: Not Given Physical Exam - Constitutional Appears: Toxic, In Acute Distress - Head Exam Head Exam: ATRAUMATIC, NORMOCEPHALIC - Eye Exam Pupil Exam: PERRL - ENT Exam ENT Exam: Mucous Membranes Dry, Normal Exam - Neck Exam Neck exam: Positive for: Full Rom - Respiratory Exam Respiratory Exam: Decreased Breath Sounds, Rales, Rhonchi, Respiratory Distress - Cardiovascular Exam Cardiovascular Exam: Irregular Rhythm, +S1, +S2, Systolic Murmur - GI/Abdominal Exam GI & Abdominal Exam: Normal Bowel Sounds, Soft - Extremities Exam Extremities exam: Positive for: pedal edema, pedal pulses present - Neurological Exam Neurological exam: Altered Results - Vital Signs Recent Vital Signs: Last Vital Signs Temp 97.9 F 09/24/17 20:00 Pulse 91 H 09/24/17 22:00 Resp 30 H 09/24/17 23:32 BP 142/78 09/24/17 22:00 Pulse Ox 100 09/24/17 22:00 - Labs Result Diagrams: 09/26/17 04:20 09/25/17 04:45 Labs: Laboratory Results - last 24 hr 09/24/17 09/24/17 09/24/17 04:30 04:30 04:30 WBC 5.9 RBC 3.67 L Hgb 10.5 L D Hct 32.0 L MCV 87.2 MCH 28.6 MCHC 32.8 L RDW 19.2 H Plt Count 213 MPV 7.3 Neut % (Auto) 77.5 H Lymph % (Auto) 9.3 L [place] % (Auto) 12.8 H Eos % (Auto) 0.2 Baso % (Auto) 0.2 Neut # 4.6 Lymph # 0.6 L [place] # 0.8 Eos # 0.0 Baso # 0.0 PT 37.4 H D INR 3.2 H D Sodium 146 Potassium 4.3 Chloride 108 H Carbon Dioxide 28 Anion Gap 14 BUN 42 H Creatinine 1.8 H Est GFR ( Amer) 44 Est GFR (Non-Af Amer) 37 POC Glucose (mg/dL) Random Glucose 76 Calcium 8.3 L Total Bilirubin 0.5 AST 45 ALT 41 Alkaline Phosphatase 99 Total Protein 6.6 Albumin 3.3 L Globulin 3.3 Albumin/Globulin Ratio 1.0 Fluid Source Fluid Appearance Fluid WBC Fluid RBC Fluid Tot Cell Count Fluid Neutrophils Fluid Lymphocytes Fld Monocyte/Macrophag Fluid Glucose Fluid Total Protein Fluid LDH Fluid Amylase Fluid Triglycerides Fluid Comment 09/24/17 09/24/17 09/24/17 06:12 11:03 17:36 WBC RBC Hgb Hct MCV MCH MCHC RDW Plt Count MPV Neut % (Auto) Lymph % (Auto) [place] % (Auto) Eos % (Auto) Baso % (Auto) Neut # Lymph # [place] # Eos # Baso # PT INR Sodium Potassium Chloride Carbon Dioxide Anion Gap BUN Creatinine Est GFR ( Amer) Est GFR (Non-Af Amer) POC Glucose (mg/dL) 70 81 69 Random Glucose Calcium Total Bilirubin AST ALT Alkaline Phosphatase Total Protein Albumin Globulin Albumin/Globulin Ratio Fluid Source Fluid Appearance Fluid WBC Fluid RBC Fluid Tot Cell Count Fluid Neutrophils Fluid Lymphocytes Fld Monocyte/Macrophag Fluid Glucose Fluid Total Protein Fluid LDH Fluid Amylase Fluid Triglycerides Fluid Comment 09/24/17 09/24/17 09/24/17 18:00 18:00 18:00 WBC RBC Hgb Hct MCV MCH MCHC RDW Plt Count MPV Neut % (Auto) Lymph % (Auto) [place] % (Auto) Eos % (Auto) Baso % (Auto) Neut # Lymph # [place] # Eos # Baso # PT INR Sodium Potassium Chloride Carbon Dioxide Anion Gap BUN Creatinine Est GFR ( Amer) Est GFR (Non-Af Amer) POC Glucose (mg/dL) Random Glucose Calcium Total Bilirubin AST ALT Alkaline Phosphatase Total Protein Albumin Globulin Albumin/Globulin Ratio Fluid Source Pleural Fluid Appearance Bloody Fluid WBC 694.0 H Fluid RBC 35320.0 H Fluid Tot Cell Count 100 H Fluid Neutrophils 23.0 H Fluid Lymphocytes 60.0 H Fld Monocyte/Macrophag 17 H Fluid Glucose 80 Fluid Total Protein 3.1 Fluid LDH 240 Fluid Amylase < 30 Fluid Triglycerides 11 Fluid Comment Bloody 09/24/17 21:46 WBC RBC Hgb Hct MCV MCH MCHC RDW Plt Count MPV Neut % (Auto) Lymph % (Auto) [place] % (Auto) Eos % (Auto) Baso % (Auto) Neut # Lymph # [place] # Eos # Baso # PT INR Sodium Potassium Chloride Carbon Dioxide Anion Gap BUN Creatinine Est GFR ( Amer) Est GFR (Non-Af Amer) POC Glucose (mg/dL) 82 Random Glucose Calcium Total Bilirubin AST ALT Alkaline Phosphatase Total Protein Albumin Globulin Albumin/Globulin Ratio Fluid Source Fluid Appearance Fluid WBC Fluid RBC Fluid Tot Cell Count Fluid Neutrophils Fluid Lymphocytes Fld Monocyte/Macrophag Fluid Glucose Fluid Total Protein Fluid LDH Fluid Amylase Fluid Triglycerides Fluid Comment Assessment & Plan (1) Acute respiratory failure with hypoxia Assessment and Plan: etiology ? diastolic CHF with fluid overload vs. underlying pulmonary infection monitor clinically will dose with lasix prn if needed bilateral thoracentesis drains Status: Acute Priority: High (2) Altered mental status Assessment and Plan: etiology ? metabolic encephalopathy CT head / MRI EEG ? CO2 narcosis Status: Acute Priority: High (3) A-fib Assessment and Plan: HR controlled will initiate on BB once pt's MS improves Coagulopathy reversed for thoracentesis can keep pt on IV heparin Status: Chronic Priority: High (4) Acute on chronic diastolic (congestive) heart failure Assessment and Plan: Maintain BP intermittent dosing of lasix Status: Chronic Priority: High (5) HTN (hypertension) Assessment and Plan: BP stable dose CCB and BB if needed Status: Chronic Priority: Medium (6) Seizure disorder Assessment and Plan: off anti-epileptics neuro eval EEG Status: Chronic Priority: Medium
[2017-09-25] MEDS: Piperacill/Tazo 3.375gm in Dex 3.375 GM/50 ML BAG IVPB SCH ×2 (03:32→09:57)
[2017-09-25 05:51] LABS: HEMOGLOBIN 11.9 g/dL (12.0-18.0); MEAN CELL VOLUME 89.3 fl (80.0-94.0); MEAN CORPUSCULAR HEMOGLOBIN 28.9 pg (27.0-31.0); MEAN CORPUSCULAR HGB CONC 32.4 g/dL (33.0-37.0); RBC 4.11 Mil/uL (4.40-5.90); RED CELL DISTRIBUTION WIDTH 18.9 % (11.5-14.5); WHITE BLOOD COUNT 8.8 K/uL (4.8-10.8)
[2017-09-25 05:59] LABS: BLOOD UREA NITROGEN 43 mg/dl (9-20); CALCIUM 8.6 mg/dL (8.4-10.2); GFR AFRICAN-AMERICAN 47; GFR NON-AFRICAN AMERICAN 39
--- NOTE | 2017-09-25 07:41 | RAD ---
HISTORY: chest tube COMPARISON: Chest radiograph 09/24/2017. FINDINGS: LUNGS: New complete opacification left hemithorax is markedly improved delete the left apex. Bilateral mid to inferior pulmonary airspace disease persists. PLEURA: [id number] bilateral pleural effusions diagnostic unchanged at the left and are increased at the right. No pneumothorax bilaterally. CARDIOVASCULAR: Cardiac silhouette is obscured by bilateral pulmonary opacity. Pulmonary venous congestion is in question. OSSEOUS STRUCTURES: No significant abnormalities. VISUALIZED UPPER ABDOMEN: Normal. OTHER FINDINGS: None. IMPRESSION: Increased right pleural effusion with marked improvement in left-sided pulmonary opacity though residual airspace disease arm and is at the mid to inferior left lung zone as well as a [id number] left pleural effusion. CHF is in question. Cardiac silhouette is obscured by bilateral pulmonary opacity. Continued clinical and radiographic monitor advised.
[2017-09-25 08:46] LABS: INR 2.8 (0.9-1.2)
--- NOTE | 2017-09-25 11:38 | CP.PCM.PN ---
Subjective - Date & Time of Evaluation Date of Evaluation: 09/25/17 Time of Evaluation: 11:35 - Subjective Subjective: CT Sx: Dr Rascon Pt S&E. Condition remains unchanged. There has been 950 out of left sided pig- tail catheter since placement. CXR shows improvement in fluid levels, however not completely resolved. O2 sats @ 100%. D/W at length that it would be beneficial for the pig-tail to remain in place, and that the right side may need to be drained as well. is very insistent that the pig-tail is bothering him (despite pt being unresponsive at this time) and that it needs to be removed immediately. We were able to come to an agreement to re-assess the situation around noon today, and then can make final decision regarding removal. Objective - Vital Signs/Intake and Output Vital Signs (last 24 hours): Temp Pulse Resp BP Pulse Ox 98.0 F 75 25 H 105/51 L 100 09/25/17 08:00 09/25/17 10:00 09/25/17 10:00 09/25/17 10:00 09/25/17 10:00 Intake and Output: 09/25/17 09/25/17 06:59 18:59 Intake Total 550 350 Output Total 275 Balance 275 350 - Medications Medications: Current Medications Albuterol/Ipratropium (Duoneb 3 Mg/0.5 Mg (3 Ml) Ud) 3 ml INH RQ4 PRN PRN Reason: Shortness of Breath Famotidine (Pepcid) 20 mg IVP DAILY [facility] Last Admin: 09/25/17 08:55 Dose: 20 mg Piperacillin Sod/Tazobactam Sod (Zosyn 3.375 Gm Iv Premix) 3.375 gm in 50 mls @ 50 mls/hr IVPB Q6 YUKI PRN Reason: Protocol Last Admin: 09/25/17 09:57 Dose: 50 mls/hr Vancomycin HCl 1 gm/ Sodium (Chloride) 250 mls @ 250 mls/hr IVPB DAILY [facility]I PRN Reason: Protocol Last Admin: 09/25/17 09:59 Dose: 250 mls/hr Lamotrigine (Lamictal) 25 mg PO BID [facility] Last Admin: 09/25/17 08:54 Dose: Not Given Lorazepam (Ativan) 2 mg IVP Q6 PRN PRN Reason: SEIZURES - Labs Labs: 09/25/17 04:45 09/25/17 04:45 PT 32.0 Seconds (9.8-13.1) H D 09/25/17 04:45 INR 2.8 (0.9-1.2) H 09/25/17 04:45 APTT 68.0 Seconds (25.6-37.1) H D 09/23/17 09:57 - Constitutional Appears: Chronically Ill - ENT Exam ENT Exam: Mucous Membranes Dry - Respiratory Exam Respiratory Exam: absent: Accessory Muscle Use, Respiratory Distress - Cardiovascular Exam Cardiovascular Exam: Irregular Rhythm. absent: Tachycardia - GI/Abdominal Exam GI & Abdominal Exam: Soft. absent: Tenderness Additional comments: left pig-tail insertion site c/d/i no air leak 950cc serosanguinous return - Extremities Exam Extremities Exam: absent: Pedal Edema - Neurological Exam Neurological Exam: absent: Alert, Awake, Oriented x3 - Skin Skin Exam: Normal Color, Warm Assessment and Plan - Assessment and Plan (Free Text) Assessment: 77M with acute CHF exacerbation and recurrent b/l pleural effusions Plan: POD#1 s/p left pig-tail insertion continue to monitor output further mgmt per primary Dr Escamilla and ICU team will consider removal at 's request - options may be limited as she is POA and very protective of her will d/w Dr Tarah Valdes, PGY3
[2017-09-25] MEDS ORDERED: Chlorhexidine Gluconate 1 APPL/PKT TP ONE (13:59)
--- NOTE | 2017-09-25 15:01 | CP.CCUPN ---
CCU Subjective - Physician Review Subjective (Free Text): Lying in bed supine, HOB elevated 30degrees, does not respond to verbal stimuli nor commands and is not interactive even with at the bedside. On HFNC 100% oxygen at 30 LPM, breathing 20 with mouth open, SPo2 100%. He will only partially open eyes and grimace to deep pain. Left CT drainage was approx. 275 ml serous fluid. Other vitals and I/O's reviewed. ROS: Unobtainable due to lethargy. No other pertinent negs or positives on 10+ system review. PMSFH: All other Nursing and physician documentation reviewed to date; no new pertinent info noted relevant to current medical problems. IMPRESSION / MAJOR PROBLEMS NOW: 1. Acute Resp ( Hypoxemic) failure 2 bilat effusions, and compressive atelectasis, unclear if any superimposed pneumonitic process. 2. Encephalopathy: etiology unclear, ?? metabolic vs cryptogenic seizures vs ?? CVA?? 3. Chronic A Fib, presently with controlled VR 4. r/o Cardiomyopathy vs Diastolic Dysfx CHF 5. Azotemia, CKD III ( Bun/Cr was 36/1.5 at the time of last hospital discharge) 6. Warfarin induced-coagulopathy PLAN: 1. For possible R thoracentesis and CT drainage if agrees. 2. INR elevation resolving. 3. Consider repeat Brain imaging to r/o embolic CVA given chronic A Fib. 4. If NGT can be placed, would hydrate with tap water (Na levels slowly rising ) and stop IVFs with D5-Half Saline. 5. No observable seizure activity as he has been off Lamictal PO with NPO status. 6. has hinted at not agreeing to intubation and MV support should he decompensate further. Unclear if her decision would change at the time of actual occurrence or rapid and progressive resp failure. CCU Objective - Vital Signs / Intake & Output Vital Signs (Last 4 hours): Vital Signs Temp Pulse Resp BP Pulse Ox 09/25/17 14:00 83 24 138/74 99 09/25/17 12:31 18 09/25/17 12:00 97.7 F 87 19 117/59 L 100 Intake and Output (Last 8hrs): Intake & Output 09/24/17 09/25/17 09/25/17 22:59 06:59 14:59 Intake Total 1156 400 350 Output Total 400 275 Balance 756 125 350 Intake: IV 350 400 Intake, Piggyback 150 350 Blood Product 656 Output: Chest Tube Drainage 275 Left Lateral Chest 275 Drainage 400 Left Chest 400 Other: # Voids Urine, Voided 1 - Physical Exam Physical Exam Limitations: Positive for: Altered Mental Status Head: Positive for: Atraumatic, Normocephalic Pupils: Positive for: PERRL, Sluggish Extroacular Muscles: Positive for: EOMI Conjunctiva: Positive for: Normal. Negative for: Icteric Mouth: Positive for: Moist Mucous Membranes Pharnyx: Negative for: ERYTHEMA Neck: Positive for: Normal Range of Motion. Negative for: JVD Respiratory/Chest: Positive for: Decreased Breath Sounds, Rhonchi (upper airway rhonchi), Tachypneic. Negative for: Accessory Muscle Use, Wheezes Cardiovascular: Positive for: Irregular Rhythm, Peripheal Pulses Present. Negative for: Murmurs, Normal S1, S2, Tachycardic, Bradycardic Abdomen: Positive for: Normal Bowel Sounds. Negative for: Tenderness, Distention, Peritoneal Signs Upper Extremity: Positive for: Edema Lower Extremity: Positive for: Edema. Negative for: CALF TENDERNESS, Cyanosis Neurological: Positive for: Other (withdraws to deep pain) Psychiatric: Positive for: Lethargic - Medications Active Medications: Active Medications Generic Name Dose Route Start Last Admin Trade Name Freq PRN Reason Stop Dose Admin Albuterol/Ipratropium 3 ml 09/23/17 17:59 Duoneb 3 Mg/0.5 Mg (3 Ml) Ud INH RQ4 PRN Shortness of Breath Famotidine 20 mg 09/25/17 09:00 09/25/17 08:55 Pepcid IVP 20 mg DAILY YUKI Administration Piperacillin Sod/Tazobactam Sod 3.375 gm in 50 mls @ 50 mls/hr 09/23/17 17:45 09/25/17 09:57 Zosyn 3.375 Gm Iv Premix IVPB 50 mls/hr Q6 YUKI Administration Protocol Vancomycin HCl 1 gm/ Sodium 250 mls @ 250 mls/hr 09/23/17 17:44 09/25/17 09: 59 Chloride IVPB 250 mls/hr DAILY YUKI Administration Protocol Lamotrigine 25 mg 09/23/17 18:15 11/15/17 08:54 Lamictal PO Not Given BID YUKI Lorazepam 2 mg 09/25/17 04:00 Ativan IVP Q6 PRN SEIZURES - Patient Studies Lab Studies: Microbiology Studies 09/23/17 08:15 Blood Culture - Preliminary Blood NO GROWTH AFTER 48 HOURS 09/23/17 08:00 Blood Culture - Preliminary Blood NO GROWTH AFTER 48 HOURS 09/24/17 18:00 Gram Stain - Final Body Fluid - Chest Body Fluid Culture - Preliminary NO GROWTH AFTER 24 HOURS 09/23/17 12:05 Urine Culture - Final Urine,Catheterized No Growth (<1,000 CFU/ML) Lab Studies 09/25/17 09/25/17 09/25/17 Range/Units 06:23 04:45 04:45 WBC (4.8-10.8) K/uL RBC (4.40-5.90) Mil/uL Hgb (12.0-18.0) g/dL Hct (35.0-51.0) % MCV (80.0-94.0) fl MCH (27.0-31.0) pg MCHC (33.0-37.0) g/dL RDW (11.5-14.5) % Plt Count (130-400) K/uL PT 32.0 H D (9.8-13.1) Seconds INR 2.8 H (0.9-1.2) Sodium 148 (132-148) mmol/l Potassium 4.1 (3.6-5.0) MMOL/L Chloride 109 H (98-107) mmol/L Carbon Dioxide 29 (22-30) mmol/L Anion Gap 14 (10-20) BUN 43 H (9-20) mg/dl Creatinine 1.7 H (0.8-1.5) mg/dl Est GFR ( Amer) 47 Est GFR (Non-Af Amer) 39 POC Glucose (mg/dL) 83 (65-110) mg/dL Random Glucose 87 (75-110) mg/dL Calcium 8.6 (8.4-10.2) mg/dL Vitamin B12 876 (239-931) pg/mL Fluid Source Fluid Appearance (CLEAR) Fluid WBC (0.0-300.0) /mm3 Fluid RBC (0.0-0.0) /mm3 Fluid Tot Cell Count (0-0) Fluid Neutrophils (0-0) % Fluid Lymphocytes (0-0) % Fld Monocyte/Macrophag (0-0) % Fluid Glucose (NONE ESTABLISHED) mg/dL Fluid Total Protein (NONE ESTABLISHED) g/dL Fluid LDH (NONE ESTABLISHED) IU Fluid Amylase (NONE ESTABLISHED) mg/dL Fluid Triglycerides (NONE ESTABLISHED) mg/dL Fluid Comment 09/25/17 09/24/17 09/24/17 Range/Units 04:45 21:46 18:00 WBC 8.8 (4.8-10.8) K/uL RBC 4.11 L (4.40-5.90) Mil/uL Hgb 11.9 L (12.0-18.0) g/dL Hct 36.7 (35.0-51.0) % MCV 89.3 D (80.0-94.0) fl MCH 28.9 (27.0-31.0) pg MCHC 32.4 L (33.0-37.0) g/dL RDW 18.9 H (11.5-14.5) % Plt Count 207 (130-400) K/uL PT (9.8-13.1) Seconds INR (0.9-1.2) Sodium (132-148) mmol/l Potassium (3.6-5.0) MMOL/L Chloride (98-107) mmol/L Carbon Dioxide (22-30) mmol/L Anion Gap (10-20) BUN (9-20) mg/dl Creatinine (0.8-1.5) mg/dl Est GFR ( Amer) Est GFR (Non-Af Amer) POC Glucose (mg/dL) 82 (65-110) mg/dL Random Glucose (75-110) mg/dL Calcium (8.4-10.2) mg/dL Vitamin B12 (239-931) pg/mL Fluid Source Pleural Fluid Appearance Bloody (CLEAR) Fluid WBC 694.0 H (0.0-300.0) /mm3 Fluid RBC 15840.0 H (0.0-0.0) /mm3 Fluid Tot Cell Count 100 H (0-0) Fluid Neutrophils 23.0 H (0-0) % Fluid Lymphocytes 60.0 H (0-0) % Fld Monocyte/Macrophag 17 H (0-0) % Fluid Glucose (NONE ESTABLISHED) mg/dL Fluid Total Protein (NONE ESTABLISHED) g/dL Fluid LDH (NONE ESTABLISHED) IU Fluid Amylase (NONE ESTABLISHED) mg/dL Fluid Triglycerides (NONE ESTABLISHED) mg/dL Fluid Comment Bloody 09/24/17 09/24/17 09/24/17 Range/Units 18:00 18:00 17:36 WBC (4.8-10.8) K/uL RBC (4.40-5.90) Mil/uL Hgb (12.0-18.0) g/dL Hct (35.0-51.0) % MCV (80.0-94.0) fl MCH (27.0-31.0) pg MCHC (33.0-37.0) g/dL RDW (11.5-14.5) % Plt Count (130-400) K/uL PT (9.8-13.1) Seconds INR (0.9-1.2) Sodium (132-148) mmol/l Potassium (3.6-5.0) MMOL/L Chloride (98-107) mmol/L Carbon Dioxide (22-30) mmol/L Anion Gap (10-20) BUN (9-20) mg/dl Creatinine (0.8-1.5) mg/dl Est GFR ( Amer) Est GFR (Non-Af Amer) POC Glucose (mg/dL) 69 (65-110) mg/dL Random Glucose (75-110) mg/dL Calcium (8.4-10.2) mg/dL Vitamin B12 (239-931) pg/mL Fluid Source Fluid Appearance (CLEAR) Fluid WBC (0.0-300.0) /mm3 Fluid RBC (0.0-0.0) /mm3 Fluid Tot Cell Count (0-0) Fluid Neutrophils (0-0) % Fluid Lymphocytes (0-0) % Fld Monocyte/Macrophag (0-0) % Fluid Glucose 80 (NONE ESTABLISHED) mg/dL Fluid Total Protein 3.1 (NONE ESTABLISHED) g/dL Fluid LDH 240 (NONE ESTABLISHED) IU Fluid Amylase < 30 (NONE ESTABLISHED) mg/dL Fluid Triglycerides 11 (NONE ESTABLISHED) mg/dL Fluid Comment Laboratory Results - last 24 hr 09/24/17 09/24/17 09/24/17 17:36 18:00 18:00 WBC RBC Hgb Hct MCV MCH MCHC RDW Plt Count PT INR Sodium Potassium Chloride Carbon Dioxide Anion Gap BUN Creatinine Est GFR ( Amer) Est GFR (Non-Af Amer) POC Glucose (mg/dL) 69 Random Glucose Calcium Vitamin B12 Fluid Source Fluid Appearance Fluid WBC Fluid RBC Fluid Tot Cell Count Fluid Neutrophils Fluid Lymphocytes Fld Monocyte/Macrophag Fluid Glucose 80 Fluid Total Protein 3.1 Fluid LDH 240 Fluid Amylase < 30 Fluid Triglycerides 11 Fluid Comment 09/24/17 09/24/17 09/25/17 18:00 21:46 04:45 WBC 8.8 RBC 4.11 L Hgb 11.9 L Hct 36.7 MCV 89.3 D MCH 28.9 MCHC 32.4 L RDW 18.9 H Plt Count 207 PT INR Sodium Potassium Chloride Carbon Dioxide Anion Gap BUN Creatinine Est GFR ( Amer) Est GFR (Non-Af Amer) POC Glucose (mg/dL) 82 Random Glucose Calcium Vitamin B12 Fluid Source Pleural Fluid Appearance Bloody Fluid WBC 694.0 H Fluid RBC 38454.0 H Fluid Tot Cell Count 100 H Fluid Neutrophils 23.0 H Fluid Lymphocytes 60.0 H Fld Monocyte/Macrophag 17 H Fluid Glucose Fluid Total Protein Fluid LDH Fluid Amylase Fluid Triglycerides Fluid Comment Bloody 09/25/17 09/25/17 09/25/17 04:45 04:45 06:23 WBC RBC Hgb Hct MCV MCH MCHC RDW Plt Count PT 32.0 H D INR 2.8 H Sodium 148 Potassium 4.1 Chloride 109 H Carbon Dioxide 29 Anion Gap 14 BUN 43 H Creatinine 1.7 H Est GFR ( Amer) 47 Est GFR (Non-Af Amer) 39 POC Glucose (mg/dL) 83 Random Glucose 87 Calcium 8.6 Vitamin B12 876 Fluid Source Fluid Appearance Fluid WBC Fluid RBC Fluid Tot Cell Count Fluid Neutrophils Fluid Lymphocytes Fld Monocyte/Macrophag Fluid Glucose Fluid Total Protein Fluid LDH Fluid Amylase Fluid Triglycerides Fluid Comment Fingerstick Blood Sugar Results: 83 Review of Systems - Review of Systems Systems not reviewed;Unavailable: Altered Mental Status
[2017-09-25] MEDS ORDERED: Lidocaine 1% Inj (20ml) ONE (15:04)
--- NOTE | 2017-09-25 15:57 | CP.PCM.PN ---
Subjective - Date & Time of Evaluation Date of Evaluation: 09/25/17 Time of Evaluation: 15:57 - Subjective Subjective: Pt's MS severely lethargic per intermittently responds bilateral thoracentesis with drains Objective - Vital Signs/Intake and Output Vital Signs (last 24 hours): Temp Pulse Resp BP Pulse Ox 97.7 F 83 20 138/74 99 09/25/17 12:00 09/25/17 14:00 09/25/17 15:19 09/25/17 14:00 09/25/17 14:00 Intake and Output: 09/25/17 09/25/17 06:59 18:59 Intake Total 550 350 Output Total 275 Balance 275 350 - Medications Medications: Current Medications Albuterol/Ipratropium (Duoneb 3 Mg/0.5 Mg (3 Ml) Ud) 3 ml INH RQ4 PRN PRN Reason: Shortness of Breath Famotidine (Pepcid) 20 mg IVP DAILY [facility] Last Admin: 09/25/17 08:55 Dose: 20 mg Vancomycin HCl 1 gm/ Sodium (Chloride) 250 mls @ 250 mls/hr IVPB DAILY [facility]I PRN Reason: Protocol Last Admin: 09/25/17 09:59 Dose: 250 mls/hr Piperacillin Sod/Tazobactam (Sod 3.375 gm/ Sodium Chloride) 100 mls @ 100 mls/ hr IVPB Q6 YUKI PRN Reason: Protocol Lamotrigine (Lamictal) 25 mg PO BID [facility] Last Admin: 09/25/17 08:54 Dose: Not Given Lorazepam (Ativan) 2 mg IVP Q6 PRN PRN Reason: SEIZURES - Labs Labs: 09/25/17 04:45 09/25/17 04:45 PT 32.0 Seconds (9.8-13.1) H D 09/25/17 04:45 INR 2.8 (0.9-1.2) H 09/25/17 04:45 APTT 68.0 Seconds (25.6-37.1) H D 09/23/17 09:57 - Constitutional Appears: Toxic - Head Exam Head Exam: ATRAUMATIC, NORMOCEPHALIC - Eye Exam Eye Exam: PERRL - ENT Exam ENT Exam: Mucous Membranes Moist - Neck Exam Neck Exam: Normal Inspection - Respiratory Exam Respiratory Exam: Rales, Rhonchi - Cardiovascular Exam Cardiovascular Exam: Tachycardia, Irregular Rhythm, +S1, +S2, Murmur - GI/Abdominal Exam GI & Abdominal Exam: Soft - Extremities Exam Extremities Exam: Pedal Edema - Neurological Exam Neurological Exam: Altered Assessment and Plan (1) Acute respiratory failure with hypoxia Assessment & Plan: etiology ? COPD with CO2 retention compounded by pneumonia and pleural effusion Status: Acute (2) Altered mental status Assessment & Plan: multifactorial CO2 narcosis on bipap refusing for intubation Status: Acute (3) A-fib Assessment & Plan: rate variable will initiate on cardizem if needed Status: Chronic (4) Acute on chronic diastolic (congestive) heart failure Assessment & Plan: lasix prn Status: Chronic (5) HTN (hypertension) Status: Chronic (6) Seizure disorder Status: Chronic
--- NOTE | 2017-09-25 16:16 | CP.PCM.PN ---
Subjective - Date & Time of Evaluation Date of Evaluation: 09/25/17 Time of Evaluation: 08:40 - Subjective Subjective: F/U Respiratory failure/ PNA Pt appear lethargic, in high flow O2, minimal response to tactile stimuli, Chest pigtail drainage 275 ml. Objective - Vital Signs/Intake and Output Vital Signs (last 24 hours): Temp Pulse Resp BP Pulse Ox 97.7 F 83 20 138/74 99 09/25/17 12:00 09/25/17 14:00 09/25/17 15:19 09/25/17 14:00 09/25/17 14:00 Intake and Output: 09/25/17 09/25/17 06:59 18:59 Intake Total 550 350 Output Total 275 Balance 275 350 - Medications Medications: Current Medications Albuterol/Ipratropium (Duoneb 3 Mg/0.5 Mg (3 Ml) Ud) 3 ml INH RQ4 PRN PRN Reason: Shortness of Breath Famotidine (Pepcid) 20 mg IVP DAILY [facility] Last Admin: 09/25/17 08:55 Dose: 20 mg Vancomycin HCl 1 gm/ Sodium (Chloride) 250 mls @ 250 mls/hr IVPB DAILY [facility]I PRN Reason: Protocol Last Admin: 09/25/17 09:59 Dose: 250 mls/hr Piperacillin Sod/Tazobactam (Sod 3.375 gm/ Sodium Chloride) 100 mls @ 100 mls/ hr IVPB Q6 YUKI PRN Reason: Protocol Lamotrigine (Lamictal) 25 mg PO BID [facility] Last Admin: 09/25/17 08:54 Dose: Not Given Lorazepam (Ativan) 2 mg IVP Q6 PRN PRN Reason: SEIZURES - Labs Labs: 09/25/17 04:45 09/25/17 04:45 PT 32.0 Seconds (9.8-13.1) H D 09/25/17 04:45 INR 2.8 (0.9-1.2) H 09/25/17 04:45 APTT 68.0 Seconds (25.6-37.1) H D 09/23/17 09:57 - Constitutional Appears: Chronically Ill - Head Exam Head Exam: NORMAL INSPECTION - Eye Exam Eye Exam: PERRL - ENT Exam ENT Exam: Normal Exam - Neck Exam Neck Exam: Normal Inspection - Respiratory Exam Respiratory Exam: Decreased Breath Sounds (b/l R>L) Additional comments: Left pigtail in place. - Cardiovascular Exam Cardiovascular Exam: Irregular Rhythm - GI/Abdominal Exam GI & Abdominal Exam: Soft, Normal Bowel Sounds - Extremities Exam Additional comments: Edema BLE - Neurological Exam Additional comments: Lethargic, minimal response to tactile stimuli. - Psychiatric Exam Additional comments: Letargic - Skin Skin Exam: Warm Assessment and Plan (1) Acute respiratory failure with hypoxia Status: Acute (2) Aspiration pneumonia Status: Acute (3) Altered mental status Status: Acute (4) Pleural effusion, bilateral Status: Acute (5) Hx of seizure disorder Status: Chronic (6) A-fib Status: Chronic (7) Diastolic CHF, acute on chronic Status: Acute (8) CANDELARIA (acute kidney injury) Status: Acute (9) Hypothermia Status: Deleted (10) HTN (hypertension) Status: Chronic - Assessment and Plan (Free Text) Plan: NGT feeding, to have R pig tail insertion, continue Vanco, Zosyn, Duoneb and rest of Tx. ICU Time: 40 min.
--- NOTE | 2017-09-25 16:19 | RAD ---
PROCEDURE: CHEST RADIOGRAPH, 1 VIEW HISTORY: s/p right pigtail placement COMPARISON: None available. FINDINGS: LUNGS: The right pigtail chest tube is identified overlapping the lower pleural cavity. There is redemonstration of pulmonary venous congestion and worsening airspace disease in both lungs with near complete opacification of the left lung. PLEURA: Bilateral pleural effusions, larger on the left. CARDIOVASCULAR: Normal. OSSEOUS STRUCTURES: No significant abnormalities. VISUALIZED UPPER ABDOMEN: Normal. OTHER FINDINGS: None. IMPRESSION: Right pigtail chest tube terminates in the lower pleural cavity. Pleural effusions, worse on the left. Underlying pulmonary edema/consolidation cannot be excluded.
--- NOTE | 2017-09-25 16:31 | PCM.PROC ---
Procedures Attestation:: I certify that I have explained the specified Operation(s) or Procedure(s), risks, benefits and reasonable alternatives to the Patient and/or other person responsible. The opportunity was given to ask questions and all questions answered - Chest Tube Chest Tube Location: Lateral Chest Right Size of Tube (cm): 8 (8 fr pigtail) Chest Tube Procedure: Chlorhexidine Tube Sutured to Skin: Yes Sterile Dressing Applied: Yes Anesthesia: Lidocaine 1% Volume Anesthetic (mls): 5 Incision Made With: #11 blade Post Procedure: sutured to skin, sterile dressing applied, air occlusive dressing Leija of Air Fajardo: No Tube Drainage: fluid Amount of Initial Drainage: 50 Post Procedure CXR?: Yes Patient Tolerated Procedure: Yes
[2017-09-25] MEDS: Piperacillin/Tazobact 3.375 GM in Sodium Chloride 0.9% 100 ML IVPB SCH ×2 (16:46→21:56)
[2017-09-26] MEDS: Ergocalciferol 50,000 Intl Units Cap PO SCH (01:20)
--- NOTE | 2017-09-26 03:29 | CP.PCM.PN ---
Subjective - Date & Time of Evaluation Date of Evaluation: 09/26/17 Time of Evaluation: 03:25 - Subjective Subjective: Patient with HR 140-160/min. Treated with Bolus Cardizem 10mg decreased Heart Rate to the 110- 130s/min which later increased back to 140-160/min. # A Fib with rapid response - decision made to give second bolus of Cardizem 10mg and to start a Cardizem drip, titrate to HR<100 Objective - Vital Signs/Intake and Output Vital Signs (last 24 hours): Temp Pulse Resp BP Pulse Ox 97.8 F 136 H 20 150/89 100 09/25/17 16:00 09/25/17 21:57 09/26/17 00:05 09/25/17 21:57 09/25/17 21:57 Intake and Output: 09/25/17 09/26/17 18:59 06:59 Intake Total 1050 Output Total 880 Balance 170 - Medications Medications: Current Medications Albuterol/Ipratropium (Duoneb 3 Mg/0.5 Mg (3 Ml) Ud) 3 ml INH RQ4 PRN PRN Reason: Shortness of Breath Calcium Carbonate (Oscal) 500 mg PO BIDWM YUKI Diltiazem HCl (Cardizem) 10 mg IVP STAT STA Stop: 09/26/17 03:24 Ergocalciferol (Drisdol 50,000 Intl Units Cap) 1 cap PO Q7D [facility] Last Admin: 09/26/17 01:20 Dose: Not Given Famotidine (Pepcid) 20 mg IVP DAILY [facility] Last Admin: 09/25/17 08:55 Dose: 20 mg Vancomycin HCl 1 gm/ Sodium (Chloride) 250 mls @ 250 mls/hr IVPB DAILY YUKI PRN Reason: Protocol Last Admin: 09/25/17 09:59 Dose: 250 mls/hr Piperacillin Sod/Tazobactam (Sod 3.375 gm/ Sodium Chloride) 100 mls @ 100 mls/ hr IVPB Q6 YUKI PRN Reason: Protocol Last Admin: 09/25/17 21:56 Dose: 100 mls/hr Diltiazem HCl 125 mg/ Sodium (Chloride) 125 mls @ 5 mls/hr IV .Q24H ONE; 5 MG/ HR PRN Reason: Protocol Stop: 09/27/17 03:23 Lamotrigine (Lamictal) 25 mg PO BID [facility] Last Admin: 09/25/17 21:52 Dose: Not Given Lorazepam (Ativan) 2 mg IVP Q6 PRN PRN Reason: SEIZURES - Labs Labs: 09/25/17 04:45 09/25/17 04:45 PT 32.0 Seconds (9.8-13.1) H D 09/25/17 04:45 INR 2.8 (0.9-1.2) H 09/25/17 04:45 APTT 68.0 Seconds (25.6-37.1) H D 09/23/17 09:57
[2017-09-26] MEDS: Piperacillin/Tazobact 3.375 GM in Sodium Chloride 0.9% 100 ML IVPB SCH ×4 (04:22→22:16)
[2017-09-26 05:39] LABS: BASO % 0.4 % (0.0-2.0); EOS # 0.1 K/uL (0.0-0.7); EOS % 0.8 % (0.0-4.0); HEMOGLOBIN 12.3 g/dL (12.0-18.0); LYMPH # 0.6 K/uL (1.0-4.3); LYMPH % 8.3 % (20.0-40.0); MEAN CELL VOLUME 89.6 fl (80.0-94.0); MEAN CORPUSCULAR HGB CONC 31.3 g/dL (33.0-37.0); MEAN PLATELET VOLUME 7.8 fl (7.2-11.7); MONO % 12.7 % (0.0-10.0); NEUT # 5.9 K/uL (1.8-7.0); NEUT % 77.8 % (50.0-75.0); RBC 4.38 Mil/uL (4.40-5.90); RED CELL DISTRIBUTION WIDTH 18.9 % (11.5-14.5); WHITE BLOOD COUNT 7.6 K/uL (4.8-10.8)
--- NOTE | 2017-09-26 07:52 | CP.PCM.PN ---
Subjective - Date & Time of Evaluation Date of Evaluation: 09/26/17 Time of Evaluation: 13:11 - Subjective Subjective: CT Sx: Dr Rascon Pt S&E in ICU. Condition remains relatively unchanged. VSS but intermittently tachycardic. Pt is more responsive today and now opens his eyes to verbal stimuli. No signs of respiratory distress. Left CT has put out 1500 total, 500/[address] 1000cc since yesterdays placement Today's CXR shows an opacification of the left side, presumably mucus plug. Objective - Vital Signs/Intake and Output Vital Signs (last 24 hours): Temp Pulse Resp BP Pulse Ox 98.5 F 124 H 15 173/81 H 100 09/26/17 04:00 09/26/17 06:00 09/26/17 06:00 09/26/17 06:00 09/26/17 06:00 Intake and Output: 09/26/17 09/26/17 06:59 18:59 Intake Total 282 Output Total 770 Balance -488 - Medications Medications: Current Medications Albuterol/Ipratropium (Duoneb 3 Mg/0.5 Mg (3 Ml) Ud) 3 ml INH RQ4 PRN PRN Reason: Shortness of Breath Calcium Carbonate (Oscal) 500 mg PO BIDWM [facility] Ergocalciferol (Drisdol 50,000 Intl Units Cap) 1 cap PO Q7D [facility] Last Admin: 09/26/17 01:20 Dose: Not Given Famotidine (Pepcid) 20 mg IVP DAILY [facility] Last Admin: 09/25/17 08:55 Dose: 20 mg Vancomycin HCl 1 gm/ Sodium (Chloride) 250 mls @ 250 mls/hr IVPB DAILY [facility] PRN Reason: Protocol Last Admin: 09/25/17 09:59 Dose: 250 mls/hr Piperacillin Sod/Tazobactam (Sod 3.375 gm/ Sodium Chloride) 100 mls @ 100 mls/ hr IVPB Q6 [facility] PRN Reason: Protocol Last Admin: 09/26/17 04:22 Dose: 100 mls/hr Diltiazem HCl 125 mg/ Sodium (Chloride) 125 mls @ 5 mls/hr IV .Q24H ONE; 5 MG/ HR PRN Reason: Protocol Stop: 09/27/17 03:23 Last Admin: 09/26/17 04:20 Dose: 5 mg/hr, 5 mls/hr Lamotrigine (Lamictal) 25 mg PO BID [facility] Last Admin: 09/25/17 21:52 Dose: Not Given Lorazepam (Ativan) 2 mg IVP Q6 PRN PRN Reason: SEIZURES - Labs Labs: 09/26/17 04:20 09/25/17 04:45 PT 32.0 Seconds (9.8-13.1) H D 09/25/17 04:45 INR 2.8 (0.9-1.2) H 09/25/17 04:45 APTT 68.0 Seconds (25.6-37.1) H D 09/23/17 09:57 - Constitutional Appears: Chronically Ill - ENT Exam ENT Exam: Mucous Membranes Dry - Respiratory Exam Respiratory Exam: absent: Accessory Muscle Use, Respiratory Distress - Cardiovascular Exam Cardiovascular Exam: REGULAR RHYTHM - GI/Abdominal Exam GI & Abdominal Exam: Soft. absent: Distended, Firm, Guarding, Rigid, Tenderness - Neurological Exam Neurological Exam: Awake. absent: Alert, Oriented x3 - Skin Skin Exam: Normal Color Assessment and Plan - Assessment and Plan (Free Text) Assessment: 77M w/ bilateral pleural effusions, s/p b/l pigtail catheters Plan: cont pigtails to suction would recommend pulmonary consider bronchoscopy for potential mucus plug will obtain CT w/ IV contrast to further evaluate the chest for any additional loculations d/w Dr Serrano and Dr Tarah Valdes, PGY3
--- NOTE | 2017-09-26 09:33 | RAD ---
PROCEDURE: CHEST RADIOGRAPH, 1 VIEW HISTORY: eval pleural effusions COMPARISON: Portable chest 09/25/2017. FINDINGS: Bilateral pleural drainage catheters unchanged in position. Pacemaker again noted. LUNGS: There is complete opacification left hemithorax which may be a function post obstructive atelectasis. Worsening infiltrate or left pleural effusion is not excluded. Limited right basilar infiltrate is not excluded with aeration slightly improved in the right chest. PLEURA: Right pleural effusion appears increased remains mild. Opacification of the left hemithorax is digit addressed above including possibility of increase pleural effusion. No pneumothorax demonstrated bilaterally. CARDIOVASCULAR: Cardiac silhouette is obscured by left hemithorax opacification. Borderline right pulmonary venous congestion appreciated. OSSEOUS STRUCTURES: No significant abnormalities. VISUALIZED UPPER ABDOMEN: Normal. OTHER FINDINGS: None. IMPRESSION: Complete opacification left hemithorax is appreciated which is nonspecific but could be on the basis of complete atelectasis, worsening of left-sided infiltrate or marked increase in left pleural effusion. Mild right pleural effusion increased as well. Given the presence of bilateral pleural drainage catheters, correlate with recorded drainage amounts. CT may be useful for follow-up. Borderline pulmonary venous congestion right hemithorax.
--- NOTE | 2017-09-26 09:48 | RAD ---
PROCEDURE: CHEST RADIOGRAPH, 1 VIEW HISTORY: poor visibility- Chest tube placement COMPARISON: Portable chest 09/26/2017. FINDINGS: Bilateral pleural catheters are unchanged in position as well as unipolar permanent cardiac pacemaker. LUNGS: Complete opacification of the left chest is again identified and remains nonspecific, unchanged. Mild right pleural effusion is unchanged with underlying airspace disease not excluded left chest at the right base. PLEURA: No pneumothorax is appreciated once again. Bilateral pleural effusions as discussed above. CARDIOVASCULAR: Cardiac silhouette remains obscured by left-sided pulmonary opacity with borderline hypervascular markings right hilum. OSSEOUS STRUCTURES: No significant abnormalities. VISUALIZED UPPER ABDOMEN: Normal. OTHER FINDINGS: None. IMPRESSION: No significant interval change in complete opacification left hemithorax a potential limited pulmonary vascular derangement. Underlying airspace disease is not excluded at the left chest and right lung base as discussed above. Further clinical correlation is advised.
--- NOTE | 2017-09-26 11:09 | CP.CCUPN ---
CCU Subjective - Physician Review Subjective (Free Text): Very slight improvement in neuromental status by responding with head movements to 's questions, still nonverbal. Occasional upper airway rhonchi and phlegm collection audible, but not much , if any obtained on suctioning of mouth and ankita-pharyngeal area. CT's continue to drain over 1000ml each cumulatively, but CXR has not improved especially over left lung; which may now show largely lobar atelectasis. No fever spikes noted. Developed rapid A fib overnight ad Cardizem drip just increased to 10 mg/hr for VR control. Questioned concerning new finding during this admission regarding new PPM noted over left chest. She states this was inserted at [facility] in June [address] Shalom Reza for slow HR. Other vitals and I/O's reviewed. ROS: Unobtainable due to lethargy. No other pertinent negs or positives on 10+ system review. PMSFH: All other Nursing and physician documentation reviewed to date; no new pertinent info noted relevant to current medical problems. IMPRESSION / MAJOR PROBLEMS NOW: 1. Acute Resp ( Hypoxemic) failure 2 bilat effusions, and compressive atelectasis, unclear if any superimposed pneumonitic process. 2. Encephalopathy: etiology unclear, ?? metabolic vs cryptogenic seizures vs ?? CVA?? 3. Chronic A Fib, presently with controlled VR 4. r/o Cardiomyopathy vs Diastolic Dysfx CHF 5. Azotemia, CKD III ( Bun/Cr was 36/1.5 at the time of last hospital discharge) 6. Warfarin induced-coagulopathy PLAN: 1. May need CT Chest to eval Left lung. Deep suctioning has been problematic to poor patient tolerance and bleeding. Will discuss with Pulm regarding FOB / BAL consideration. Otherwise, may need oral intubation and positive pressure ventilation. Will start CVhest PT / vibropercussion. 2. INR elevation resolving. 3. Consider repeat Brain imaging to r/o embolic CVA given chronic A Fib. 4. If NGT can be placed, would hydrate with tap water (Na levels slowly rising ) and stop IVFs with D5-Half Saline. 5. No observable seizure activity as he has been off Lamictal PO with NPO status. 6. has hinted at not agreeing to intubation and MV support should he decompensate further. Unclear if her decision would change at the time of actual occurrence or rapid and progressive resp failure. 7. Resume Metoprolol. CCU Objective - Vital Signs / Intake & Output Vital Signs (Last 4 hours): Vital Signs Temp Pulse Resp BP Pulse Ox 09/26/17 10:00 104 H 32 H 159/77 H 95 09/26/17 08:28 25 H 09/26/17 08:00 98.8 F 140 H 25 H 157/85 H 91 L Intake and Output (Last 8hrs): Intake & Output 09/25/17 09/26/17 09/26/17 22:59 06:59 14:59 Intake Total 860 122 250 Output Total 880 770 Balance -20 -648 250 Intake: IV 660 115 Intake, Piggyback 200 7 250 Output: Chest Tube Drainage 880 770 Left Lateral Chest 80 540 Right Lateral Chest 800 230 Other: # Bowel Movements 1 - Physical Exam Head: Positive for: Atraumatic, Normocephalic Pupils: Positive for: PERRL, Sluggish Extroacular Muscles: Positive for: EOMI Conjunctiva: Positive for: Normal. Negative for: Icteric Ears: Positive for: Normal Mouth: Positive for: Moist Mucous Membranes Pharnyx: Negative for: ERYTHEMA Neck: Positive for: Normal Range of Motion. Negative for: JVD Respiratory/Chest: Positive for: Decreased Breath Sounds, Rhonchi (upper airway rhonchi), Tachypneic. Negative for: Accessory Muscle Use, Wheezes Cardiovascular: Positive for: Irregular Rhythm, Peripheal Pulses Present. Negative for: Murmurs, Normal S1, S2, Tachycardic, Bradycardic Abdomen: Positive for: Normal Bowel Sounds. Negative for: Tenderness, Distention, Peritoneal Signs Upper Extremity: Positive for: Edema Lower Extremity: Positive for: Edema, NORMAL PULSES. Negative for: CALF TENDERNESS, Cyanosis Neurological: Positive for: Other (withdraws to deep pain) Skin: Positive for: Warm. Negative for: Rashes Psychiatric: Positive for: Lethargic - Medications Active Medications: Active Medications Generic Name Dose Route Start Last Admin Trade Name Freq PRN Reason Stop Dose Admin Albuterol/Ipratropium 3 ml 09/23/17 17:59 Duoneb 3 Mg/0.5 Mg (3 Ml) Ud INH RQ4 PRN Shortness of Breath Calcium Carbonate 500 mg 09/26/17 08:00 09/26/17 11:00 Oscal PO Not Given BIDWM [facility] Ergocalciferol 1 cap 09/25/17 23:45 09/26/17 01:20 Drisdol 50,000 Intl Units Cap PO Not Given Q7D [facility] Famotidine 20 mg 09/25/17 09:00 09/26/17 10:59 Pepcid IVP 20 mg DAILY [facility] Administration Vancomycin HCl 1 gm/ Sodium 250 mls @ 250 mls/hr 09/23/17 17:44 09/26/17 09: 15 Chloride IVPB 250 mls/hr DAILY [facility] Administration Protocol Piperacillin Sod/Tazobactam 100 mls @ 100 mls/hr 09/25/17 16:00 09/26/17 04: 22 Sod 3.375 gm/ Sodium Chloride IVPB 100 mls/hr Q6 [facility] Administration Protocol Diltiazem HCl 125 mg/ Sodium 125 mls @ 5 mls/hr 09/26/17 03:24 09/26/17 04:20 Chloride IV 09/27/17 03:23 5 mg/hr .Q24H ONE 5 mls/hr Protocol Administration 5 MG/HR Lamotrigine 25 mg 09/23/17 18:15 09/25/17 21:52 Lamictal PO Not Given BID [facility] Lorazepam 2 mg 09/25/17 04:00 Ativan IVP Q6 PRN SEIZURES - Patient Studies Lab Studies: Microbiology Studies 09/23/17 09:55 MRSA Culture (Admit) - Final Naris MRSA NOT DETECTED 09/23/17 08:15 Blood Culture - Preliminary Blood NO GROWTH AFTER 48 HOURS 09/23/17 08:00 Blood Culture - Preliminary Blood NO GROWTH AFTER 48 HOURS 09/24/17 18:00 Gram Stain - Final Body Fluid - Chest Body Fluid Culture - Preliminary NO GROWTH AFTER 24 HOURS Lab Studies 09/26/17 09/26/17 09/25/17 Range/Units 05:57 04:20 04:45 WBC 7.6 (4.8-10.8) K/uL RBC 4.38 L (4.40-5.90) Mil/uL Hgb 12.3 (12.0-18.0) g/dL Hct 39.2 (35.0-51.0) % MCV 89.6 (80.0-94.0) fl MCH 28.0 (27.0-31.0) pg MCHC 31.3 L (33.0-37.0) g/dL RDW 18.9 H (11.5-14.5) % Plt Count 177 (130-400) K/uL MPV 7.8 (7.2-11.7) fl Neut % (Auto) 77.8 H (50.0-75.0) % Lymph % (Auto) 8.3 L (20.0-40.0) % Bryan % (Auto) 12.7 H (0.0-10.0) % Eos % (Auto) 0.8 (0.0-4.0) % Baso % (Auto) 0.4 (0.0-2.0) % Neut # 5.9 (1.8-7.0) K/uL Lymph # 0.6 L (1.0-4.3) K/uL Bryan # 1.0 H (0.0-0.8) K/uL Eos # 0.1 (0.0-0.7) K/uL Baso # 0.0 (0.0-0.2) K/uL Chloride (98-107) mmol/L POC Glucose (mg/dL) 75 (65-110) mg/dL 25-OH Vitamin D Total 25.5 L (30.0-100.0) NG/ML 09/25/17 Range/Units 04:45 WBC (4.8-10.8) K/uL RBC (4.40-5.90) Mil/uL Hgb (12.0-18.0) g/dL Hct (35.0-51.0) % MCV (80.0-94.0) fl MCH (27.0-31.0) pg MCHC (33.0-37.0) g/dL RDW (11.5-14.5) % Plt Count (130-400) K/uL MPV (7.2-11.7) fl Neut % (Auto) (50.0-75.0) % Lymph % (Auto) (20.0-40.0) % Bryan % (Auto) (0.0-10.0) % Eos % (Auto) (0.0-4.0) % Baso % (Auto) (0.0-2.0) % Neut # (1.8-7.0) K/uL Lymph # (1.0-4.3) K/uL Bryan # (0.0-0.8) K/uL Eos # (0.0-0.7) K/uL Baso # (0.0-0.2) K/uL Chloride 109 H (98-107) mmol/L POC Glucose (mg/dL) (65-110) mg/dL 25-OH Vitamin D Total (30.0-100.0) NG/ML Laboratory Results - last 24 hr 09/25/17 09/25/17 09/26/17 04:45 04:45 04:20 WBC 7.6 RBC 4.38 L Hgb 12.3 Hct 39.2 MCV 89.6 MCH 28.0 MCHC 31.3 L RDW 18.9 H Plt Count 177 MPV 7.8 Neut % (Auto) 77.8 H Lymph % (Auto) 8.3 L Bryan % (Auto) 12.7 H Eos % (Auto) 0.8 Baso % (Auto) 0.4 Neut # 5.9 Lymph # 0.6 L Bryan # 1.0 H Eos # 0.1 Baso # 0.0 Chloride 109 H POC Glucose (mg/dL) 25-OH Vitamin D Total 25.5 L 09/26/17 05:57 WBC RBC Hgb Hct MCV MCH MCHC RDW Plt Count MPV Neut % (Auto) Lymph % (Auto) Bryan % (Auto) Eos % (Auto) Baso % (Auto) Neut # Lymph # Bryan # Eos # Baso # Chloride POC Glucose (mg/dL) 75 25-OH Vitamin D Total Fingerstick Blood Sugar Results: 83 Review of Systems - Review of Systems Systems not reviewed;Unavailable: Altered Mental Status
--- NOTE | 2017-09-26 12:13 | CARD ---
APPROVED REPORT EXAM: Two-dimensional and M-mode echocardiogram with Doppler and color Doppler. Other Information Quality : GoodRhythm : Pacemaker INDICATION LV Function:SystolicDiastolic 2D DIMENSIONS IVSd1.16 (0.7-1.1cm)LVDd3.36 (3.9-5.9cm) LVOT Diameter2.29 (1.8-2.4cm)PWd1.12 (0.7-1.1cm) IVSs1.75 (0.8-1.2cm)LVDs2.20 (2.5-4.0cm) FS (%) 34.5 %PWs1.75 (0.8-1.2cm) M-Mode DIMENSIONS Left Atrium (MM)5.12 (2.5-4.0cm)IVSd1.18 (0.7-1.1cm) Aortic Root3.47 (2.2-3.7cm)LVDd3.91 (4.0-5.6cm) Aortic Cusp Exc.1.76 (1.5-2.0cm)PWd1.41 (0.7-1.1cm) IVSs1.79 cmFS (%) 38 % LVDs2.44 (2.0-3.8cm)PWs1.88 cm Mitral Valve E/A ratio0.0 TDI E/Lateral E'0.0E/Medial E'0.0 Tricuspid Valve TR Peak [id number] Peak Gr.32mmHg [id number] LEFT VENTRICLE The left ventricle is normal size. There is normal left ventricular wall thickness. The left ventricular function is normal. The left ventricular ejection fraction is 60% There is normal LV segmental wall motion. The left ventricular diastolic function is normal. No left ventricle thrombus noted on this study. There is no ventricular septal defect visualized. There is no left ventricular aneurysm. There is no mass noted in the left ventricle. RIGHT VENTRICLE The right ventricle is normal size. There is normal right ventricular wall thickness. The right ventricular systolic function is normal. ATRIA The left atrium is moderately dilated. The right atrium size is normal. The interatrial septum is intact with no evidence for an atrial septal defect. AORTIC VALVE The aortic valve is mildly to moderately sclerotic. There is trace aortic regurgitation. There is no aortic valvular stenosis. There is no aortic valvular vegetation. MITRAL VALVE The mitral valve is normal in structure. There is no evidence of mitral valve prolapse. There is no mitral valve stenosis. Mitral regurgitation is trace. TRICUSPID VALVE The tricuspid valve is normal in structure. There is moderate tricuspid regurgitation. Right ventricular systolic pressure is estimated at 30-40 mmHg. There is no tricuspid valve prolapse or vegetation. There is no tricuspid valve stenosis. PULMONIC VALVE The pulmonary valve is normal in structure. There is no pulmonic valvular regurgitation. There is no pulmonic valvular stenosis. GREAT VESSELS The aortic root is normal in size. The ascending aorta is normal in size. The IVC is normal in size and collapses >50% with inspiration. PERICARDIAL EFFUSION The pericardium appears normal. There is no pleural effusion. <Conclusion> Normal LV systolic function Left Atrial Enlargement Trace Aortic Insufficiency Trace Mitral Regurgitation Aortic Valve Sclerosis
--- NOTE | 2017-09-26 14:39 | CP.PCM.PN ---
Subjective - Date & Time of Evaluation Date of Evaluation: 09/25/17 Time of Evaluation: 08:40 - Subjective Subjective: F/U Respiratory Failure/ PNA Objective - Vital Signs/Intake and Output Vital Signs (last 24 hours): Temp Pulse Resp BP Pulse Ox 98.9 F 99 H 24 127/89 100 09/26/17 12:00 09/26/17 14:00 09/26/17 14:25 09/26/17 14:00 09/26/17 14:00 Intake and Output: 09/26/17 09/26/17 06:59 18:59 Intake Total 282 250 Output Total 770 Balance -488 250 - Medications Medications: Current Medications Acetylcysteine (Mucomyst 10% 4ml) 2 ml IH RBID [facility] Albuterol/Ipratropium (Duoneb 3 Mg/0.5 Mg (3 Ml) Ud) 3 ml INH RQ4 PRN PRN Reason: Shortness of Breath Calcium Carbonate (Oscal) 500 mg PO BIDWM [facility] Last Admin: 09/26/17 11:00 Dose: Not Given Ergocalciferol (Drisdol 50,000 Intl Units Cap) 1 cap PO Q7D [facility] Last Admin: 09/26/17 01:20 Dose: Not Given Famotidine (Pepcid) 20 mg IVP DAILY [facility] Last Admin: 09/26/17 10:59 Dose: 20 mg Vancomycin HCl 1 gm/ Sodium (Chloride) 250 mls @ 250 mls/hr IVPB DAILY [facility] PRN Reason: Protocol Last Admin: 09/26/17 09:15 Dose: 250 mls/hr Piperacillin Sod/Tazobactam (Sod 3.375 gm/ Sodium Chloride) 100 mls @ 100 mls/ hr IVPB Q6 [facility] PRN Reason: Protocol Last Admin: 09/26/17 11:44 Dose: 100 mls/hr Diltiazem HCl 125 mg/ Sodium (Chloride) 125 mls @ 5 mls/hr IV .Q24H ONE; 5 MG/ HR PRN Reason: Protocol Stop: 09/27/17 03:23 Last Admin: 09/26/17 04:20 Dose: 5 mg/hr, 5 mls/hr Lamotrigine (Lamictal) 25 mg PO BID [facility] Last Admin: 09/26/17 11:05 Dose: Not Given Lorazepam (Ativan) 2 mg IVP Q6 PRN PRN Reason: SEIZURES Metoprolol Tartrate (Lopressor) 25 mg PO Q12 [facility] Last Admin: 09/26/17 14:10 Dose: Not Given - Labs Labs: 09/26/17 04:20 09/25/17 04:45 PT 32.0 Seconds (9.8-13.1) H D 09/25/17 04:45 INR 2.8 (0.9-1.2) H 09/25/17 04:45 APTT 68.0 Seconds (25.6-37.1) H D 09/23/17 09:57 - Constitutional Appears: No Acute Distress, Chronically Ill - Head Exam Head Exam: NORMAL INSPECTION - Eye Exam Eye Exam: PERRL - ENT Exam ENT Exam: Normal Exam - Neck Exam Neck Exam: Normal Inspection - Respiratory Exam Respiratory Exam: Decreased Breath Sounds (b/b R>L) Additional comments: L pigtail in place - Cardiovascular Exam Cardiovascular Exam: Irregular Rhythm - GI/Abdominal Exam GI & Abdominal Exam: Soft, Normal Bowel Sounds - Extremities Exam Additional comments: Edema BLE - Neurological Exam Additional comments: Lethargic, minimal response to tactile stimuli. - Psychiatric Exam Additional comments: Lethargic. - Skin Skin Exam: Warm Assessment and Plan (1) Acute respiratory failure with hypoxia Status: Acute (2) Aspiration pneumonia Status: Acute (3) Altered mental status Status: Acute (4) Pleural effusion, bilateral Status: Acute (5) Chronic CHF Status: Chronic (6) Hx of seizure disorder Status: Chronic (7) A-fib Status: Chronic (8) CANDELARIA (acute kidney injury) Status: Acute (9) Hypothermia Status: Acute (10) HTN (hypertension) Status: Chronic
[2017-09-26] MEDS ORDERED: Chlorhexidine Gluconate 1 APPL/PKT TP ONE (14:54)
[2017-09-26] MEDS ORDERED: Lidocaine 2% Jelly (Uro-Jet) TOP ONE (14:55)
--- NOTE | 2017-09-26 15:05 | CP.PCM.PN ---
Subjective - Date & Time of Evaluation Date of Evaluation: 09/26/17 Time of Evaluation: 01:00 - Subjective Subjective: He is doing much better since the Right side Chest Tube was placed and drained 5oo ml of pleural effusion fluid from his chest due to his Pneumonia. Now he is able to express himself, talk, move his UEs and LEs . He is in a very happy mood and is awake oriented appraising his for her help. Objective - Vital Signs/Intake and Output Vital Signs (last 24 hours): Temp Pulse Resp BP Pulse Ox 98.9 F 99 H 24 127/89 100 09/26/17 12:00 09/26/17 14:00 09/26/17 14:25 09/26/17 14:00 09/26/17 14:00 Intake and Output: 09/26/17 09/26/17 06:59 18:59 Intake Total 282 250 Output Total 770 Balance -488 250 - Medications Medications: Current Medications Acetylcysteine (Mucomyst 10% 4ml) 2 ml IH RBID [facility] Albuterol/Ipratropium (Duoneb 3 Mg/0.5 Mg (3 Ml) Ud) 3 ml INH RQ4 PRN PRN Reason: Shortness of Breath Calcium Carbonate (Oscal) 500 mg PO BIDWM [facility] Last Admin: 09/26/17 11:00 Dose: Not Given Ergocalciferol (Drisdol 50,000 Intl Units Cap) 1 cap PO Q7D [facility] Last Admin: 09/26/17 01:20 Dose: Not Given Famotidine (Pepcid) 20 mg IVP DAILY [facility] Last Admin: 09/26/17 10:59 Dose: 20 mg Vancomycin HCl 1 gm/ Sodium (Chloride) 250 mls @ 250 mls/hr IVPB DAILY [facility] PRN Reason: Protocol Last Admin: 09/26/17 09:15 Dose: 250 mls/hr Piperacillin Sod/Tazobactam (Sod 3.375 gm/ Sodium Chloride) 100 mls @ 100 mls/ hr IVPB Q6 [facility] PRN Reason: Protocol Last Admin: 09/26/17 11:44 Dose: 100 mls/hr Diltiazem HCl 125 mg/ Sodium (Chloride) 125 mls @ 5 mls/hr IV .Q24H ONE; 5 MG/ HR PRN Reason: Protocol Stop: 09/27/17 03:23 Last Admin: 09/26/17 04:20 Dose: 5 mg/hr, 5 mls/hr Lamotrigine (Lamictal) 25 mg PO BID [facility] Last Admin: 09/26/17 11:05 Dose: Not Given Lorazepam (Ativan) 2 mg IVP Q6 PRN PRN Reason: SEIZURES Metoprolol Tartrate (Lopressor) 25 mg PO Q12 [facility] Last Admin: 09/26/17 14:10 Dose: Not Given - Labs Labs: 09/26/17 04:20 09/25/17 04:45 PT 32.0 Seconds (9.8-13.1) H D 09/25/17 04:45 INR 2.8 (0.9-1.2) H 09/25/17 04:45 APTT 68.0 Seconds (25.6-37.1) H D 09/23/17 09:57 Assessment and Plan (1) CANDELARIA (acute kidney injury) Status: Acute (2) Acute respiratory failure Status: Acute (3) Altered mental status Status: Acute (4) Hypothermia Status: Acute (5) Pleural effusion, bilateral Status: Acute (6) Pneumonia Status: Acute (7) Seizure disorder Status: Suspected (8) Encephalopathy Status: Acute
--- NOTE | 2017-09-26 15:21 | CP.PCM.PN ---
Subjective - Date & Time of Evaluation Date of Evaluation: 09/26/17 Time of Evaluation: 12:20 - Subjective Subjective: F/U Respiratory Failure/ PNA Pt appear with mild respiratory distress, on high flow O2, lethargic. Objective - Vital Signs/Intake and Output Vital Signs (last 24 hours): Temp Pulse Resp BP Pulse Ox 98.9 F 99 H 24 127/89 100 09/26/17 12:00 09/26/17 14:00 09/26/17 14:25 09/26/17 14:00 09/26/17 14:00 Intake and Output: 09/26/17 09/26/17 06:59 18:59 Intake Total 282 250 Output Total 770 Balance -488 250 - Medications Medications: Current Medications Acetylcysteine (Mucomyst 10% 4ml) 2 ml IH RBID YUKI Albuterol/Ipratropium (Duoneb 3 Mg/0.5 Mg (3 Ml) Ud) 3 ml INH RQ4 PRN PRN Reason: Shortness of Breath Calcium Carbonate (Oscal) 500 mg PO BIDWM [facility] Last Admin: 09/26/17 11:00 Dose: Not Given Ergocalciferol (Drisdol 50,000 Intl Units Cap) 1 cap PO Q7D [facility] Last Admin: 09/26/17 01:20 Dose: Not Given Famotidine (Pepcid) 20 mg IVP DAILY [facility] Last Admin: 09/26/17 10:59 Dose: 20 mg Vancomycin HCl 1 gm/ Sodium (Chloride) 250 mls @ 250 mls/hr IVPB DAILY [facility]I PRN Reason: Protocol Last Admin: 09/26/17 09:15 Dose: 250 mls/hr Piperacillin Sod/Tazobactam (Sod 3.375 gm/ Sodium Chloride) 100 mls @ 100 mls/ hr IVPB Q6 YUKI PRN Reason: Protocol Last Admin: 09/26/17 11:44 Dose: 100 mls/hr Diltiazem HCl 125 mg/ Sodium (Chloride) 125 mls @ 5 mls/hr IV .Q24H ONE; 5 MG/ HR PRN Reason: Protocol Stop: 09/27/17 03:23 Last Admin: 09/26/17 04:20 Dose: 5 mg/hr, 5 mls/hr Lamotrigine (Lamictal) 25 mg PO BID [facility] Last Admin: 09/26/17 11:05 Dose: Not Given Lorazepam (Ativan) 2 mg IVP Q6 PRN PRN Reason: SEIZURES Metoprolol Tartrate (Lopressor) 25 mg PO Q12 [facility] Last Admin: 09/26/17 14:10 Dose: Not Given - Labs Labs: 09/26/17 04:20 09/25/17 04:45 PT 32.0 Seconds (9.8-13.1) H D 09/25/17 04:45 INR 2.8 (0.9-1.2) H 09/25/17 04:45 APTT 68.0 Seconds (25.6-37.1) H D 09/23/17 09:57 - Constitutional Appears: No Acute Distress, Chronically Ill - Head Exam Head Exam: NORMAL INSPECTION - Eye Exam Eye Exam: PERRL - ENT Exam ENT Exam: Normal Exam - Neck Exam Neck Exam: Normal Inspection - Respiratory Exam Respiratory Exam: Decreased Breath Sounds (b/l R>L), Rhonchi (R lung) Additional comments: L and R pigtail in place - Cardiovascular Exam Cardiovascular Exam: Irregular Rhythm - GI/Abdominal Exam GI & Abdominal Exam: Soft, Normal Bowel Sounds - Extremities Exam Additional comments: Edema BLE - Neurological Exam Additional comments: Lethargic, minimal response to tactile stimuli. - Psychiatric Exam Additional comments: Lethargic. - Skin Skin Exam: Warm Assessment and Plan (1) Acute respiratory failure with hypoxia Status: Acute (2) Aspiration pneumonia Status: Acute (3) Altered mental status Status: Acute (4) Pleural effusion, bilateral Status: Acute (5) Hx of seizure disorder Status: Chronic (6) A-fib Status: Chronic (7) Diastolic CHF, acute on chronic Status: Acute (8) CANDELARIA (acute kidney injury) Status: Acute (9) Hypothermia Status: Acute (10) HTN (hypertension) Status: Chronic (11) Collapse of left lung Assessment & Plan: Mucus Plugs and or effusion Status: Deleted - Assessment and Plan (Free Text) Plan: CXR shows Left Lung opacification , can not have CT Chest unable to lye flat , to have , U-S L hemithorax, f/u Bronchoscopy. ICU Time: 35 min.
[2017-09-26 17:49] LABS: FOLATE > 20.0 ng/mL
[2017-09-26] MEDS: Albuterol-Ipratrop 3 mg / 0.5 (3 ml) UD INH PRN (19:27)
[2017-09-26] MEDS: Acetylcysteine 10% 4 ML IH SCH (19:27)
--- NOTE | 2017-09-27 00:39 | CP.PCM.PN ---
Subjective - Date & Time of Evaluation Date of Evaluation: 09/26/17 Time of Evaluation: 17:30 - Subjective Subjective: still obtunded on IV cardizem gtt for afib BP stable per he had some response earlier in the day Objective - Vital Signs/Intake and Output Vital Signs (last 24 hours): Temp Pulse Resp BP Pulse Ox 98.8 F 109 H 25 H 162/66 H 97 09/27/17 00:00 09/27/17 00:00 09/27/17 00:00 09/27/17 00:00 09/27/17 00:00 Intake and Output: 09/26/17 09/27/17 18:59 06:59 Intake Total 420 130 Output Total 300 Balance 120 130 - Medications Medications: Current Medications Acetylcysteine (Mucomyst 10% 4ml) 2 ml IH RBID [facility] Last Admin: 09/26/17 19:27 Dose: 2 ml Albuterol/Ipratropium (Duoneb 3 Mg/0.5 Mg (3 Ml) Ud) 3 ml INH RQ4 PRN PRN Reason: Shortness of Breath Last Admin: 09/26/17 19:27 Dose: 3 ml Calcium Carbonate (Oscal) 500 mg PO BIDWM [facility] Last Admin: 09/26/17 17:06 Dose: Not Given Ergocalciferol (Drisdol 50,000 Intl Units Cap) 1 cap PO Q7D [facility] Last Admin: 09/26/17 01:20 Dose: Not Given Famotidine (Pepcid) 20 mg IVP DAILY [facility] Last Admin: 09/26/17 10:59 Dose: 20 mg Vancomycin HCl 1 gm/ Sodium (Chloride) 250 mls @ 250 mls/hr IVPB DAILY [facility] PRN Reason: Protocol Last Admin: 09/26/17 09:15 Dose: 250 mls/hr Piperacillin Sod/Tazobactam (Sod 3.375 gm/ Sodium Chloride) 100 mls @ 100 mls/ hr IVPB Q6 [facility]I PRN Reason: Protocol Last Admin: 09/26/17 22:16 Dose: 100 mls/hr Diltiazem HCl 100 mg/ Sodium (Chloride) 100 mls @ 5 mls/hr IV .Q20H ONE; 5 MG/ HR PRN Reason: Protocol Stop: 09/27/17 15:44 Lamotrigine (Lamictal) 25 mg PO BID [facility] Last Admin: 09/26/17 17:05 Dose: Not Given Lorazepam (Ativan) 2 mg IVP Q6 PRN PRN Reason: SEIZURES Metoprolol Tartrate (Lopressor) 25 mg PO Q12 [facility] Last Admin: 09/26/17 22:00 Dose: Not Given - Labs Labs: 09/26/17 04:20 09/25/17 04:45 PT 32.0 Seconds (9.8-13.1) H D 09/25/17 04:45 INR 2.8 (0.9-1.2) H 09/25/17 04:45 APTT 68.0 Seconds (25.6-37.1) H D 09/23/17 09:57 - Constitutional Appears: Toxic, In Acute Distress - Head Exam Head Exam: NORMOCEPHALIC - Eye Exam Eye Exam: PERRL - Neck Exam Neck Exam: Full ROM - Respiratory Exam Respiratory Exam: Decreased Breath Sounds, Rales, Rhonchi - Cardiovascular Exam Cardiovascular Exam: Tachycardia, Irregular Rhythm, +S1, +S2, Murmur - GI/Abdominal Exam GI & Abdominal Exam: Soft - Extremities Exam Extremities Exam: Pedal Edema - Neurological Exam Neurological Exam: Altered - Skin Skin Exam: Warm Assessment and Plan (1) Acute respiratory failure with hypoxia Assessment & Plan: s/p bronch today with improvement in sats cont pulm toilet and breathing rx Status: Acute (2) Altered mental status Assessment & Plan: per mentation mildly improved Status: Acute (3) A-fib Assessment & Plan: ON IV cardizem gtt will bolus with IV digoxin 0.125 mcg x 1 OAC on hold 2' to coagulopathy Status: Chronic (4) Acute on chronic diastolic (congestive) heart failure Assessment & Plan: Lasix 60mg IV q12 hours echo reviewed - normal EF with mild diastolic chF Status: Chronic (5) HTN (hypertension) Assessment & Plan: will titrate meds based on response Status: Chronic (6) Seizure disorder Status: Chronic
[2017-09-27] MEDS ORDERED: Albuterol-Ipratrop 3 mg / 0.5 (3 ml) UD INH STA (02:23)
[2017-09-27] MEDS: Albuterol-Ipratrop 3 mg / 0.5 (3 ml) UD INH PRN (02:26)
[2017-09-27 02:43] LABS: ABG ALLEN TEST YES; ARTERIAL BLOOD GAS HEMOGLOBIN 13.8 g/dL (11.7-17.4); ARTERIAL BLOOD GAS O2 CAPACITY 18.7 mL/dL (16-24); ARTERIAL BLOOD GAS O2 CONTENT 16.2 ML/dL (15-23); ARTERIAL BLOOD GAS O2 SAT 86.8 % (95-98); ARTERIAL BLOOD GAS PCO2 69 mm/Hg (35-45); ARTERIAL BLOOD GAS PH 7.26 (7.35-7.45); ARTERIAL BLOOD GAS PO2 49 mm/Hg (80-100); ARTERIAL BLOOD GAS TCO2 33.1 mmol/L (22-28)
--- NOTE | 2017-09-27 03:04 | CP.CCUPN ---
CCU Subjective - Physician Review Subjective (Free Text): 09/27/17 02:56 This evening notified by nurse/RT that patient is desaturating to 70% while on high flow. Patient received stat nebulizer, 40 mg of IV lasix and ABG and CXR was ordered. Phys Ex: Gen: Patient is not rousable Lungs: dim b/s on R side CV: NR/RR ABG shows 7.26/CO2 69/O2 49 CXR: L side appears opacified A/P: I presented the options to patient's . She refuses to consider intubation, and does not appear to even understand the situation, nor make much sense when I am trying to discuss the patient's active issues with her. She decided to call Dr. Escamilla directly. I spoke to Dr. Escamilla at the time and updated him on the patient condition, he agrees that we can proceed at least to bipap for now. CCU Objective - Vital Signs / Intake & Output Vital Signs (Last 4 hours): Vital Signs Temp Pulse Resp BP Pulse Ox 09/27/17 01:00 112 H 27 H 165/75 H 98 09/27/17 00:12 21 09/27/17 00:00 98.8 F 109 H 25 H 162/66 H 97 09/26/17 23:00 110 H 29 H 165/87 H 96 Intake and Output (Last 8hrs): Intake & Output 09/26/17 09/26/17 09/27/17 14:59 22:59 06:59 Intake Total 250 290 10 Output Total 300 Balance 250 -10 10 Intake: IV 20 10 Intake, Piggyback 250 270 Oral 0 Output: Drainage 300 Left Chest 300 Other: # Voids Urine, Voided 1 - Physical Exam Head: Positive for: Atraumatic, Normocephalic Pupils: Positive for: PERRL, Sluggish Extroacular Muscles: Positive for: EOMI Conjunctiva: Positive for: Normal. Negative for: Icteric Ears: Positive for: Normal Mouth: Positive for: Moist Mucous Membranes Pharnyx: Negative for: ERYTHEMA Neck: Positive for: Normal Range of Motion. Negative for: JVD Respiratory/Chest: Positive for: Decreased Breath Sounds, Rhonchi (upper airway rhonchi), Tachypneic. Negative for: Accessory Muscle Use, Wheezes Cardiovascular: Positive for: Irregular Rhythm, Peripheal Pulses Present. Negative for: Murmurs, Normal S1, S2, Tachycardic, Bradycardic Abdomen: Positive for: Normal Bowel Sounds. Negative for: Tenderness, Distention, Peritoneal Signs Upper Extremity: Positive for: Edema Lower Extremity: Positive for: Edema, NORMAL PULSES. Negative for: CALF TENDERNESS, Cyanosis Neurological: Positive for: Other (withdraws to deep pain) Skin: Positive for: Warm. Negative for: Rashes Psychiatric: Positive for: Lethargic - Medications Active Medications: Active Medications Generic Name Dose Route Start Last Admin Trade Name Freq PRN Reason Stop Dose Admin Acetylcysteine 2 ml 09/26/17 20:00 09/26/17 19:27 Mucomyst 10% 4ml IH 2 ml RBID YUKI Administration Albuterol/Ipratropium 3 ml 09/23/17 17:59 09/27/17 02:26 Duoneb 3 Mg/0.5 Mg (3 Ml) Ud INH 3 ml RQ4 PRN Administration Shortness of Breath Calcium Carbonate 500 mg 09/26/17 08:00 09/26/17 17:06 Oscal PO Not Given BIDWM [facility]UKI Ergocalciferol 1 cap 09/25/17 23:45 09/26/17 01:20 Drisdol 50,000 Intl Units Cap PO Not Given Q7D [facility]UKI Famotidine 20 mg 09/25/17 09:00 09/26/17 10:59 Pepcid IVP 20 mg DAILY [facility]UKI Administration Vancomycin HCl 1 gm/ Sodium 250 mls @ 250 mls/hr 09/23/17 17:44 09/26/17 09: 15 Chloride IVPB 250 mls/hr DAILY YUKI Administration Protocol Piperacillin Sod/Tazobactam 100 mls @ 100 mls/hr 09/25/17 16:00 09/26/17 22: 16 Sod 3.375 gm/ Sodium Chloride IVPB 100 mls/hr Q6 YUKI Administration Protocol Diltiazem HCl 100 mg/ Sodium 100 mls @ 5 mls/hr 09/26/17 19:45 Chloride IV 09/27/17 15:44 .Q20H ONE Protocol 5 MG/HR Lamotrigine 25 mg 09/23/17 18:15 09/26/17 17:05 Lamictal PO Not Given BID [facility]UKI Lorazepam 2 mg 09/25/17 04:00 Ativan IVP Q6 PRN SEIZURES Metoprolol Tartrate 25 mg 09/26/17 11:15 09/26/17 22:00 Lopressor PO Not Given Q12 YUKI - Patient Studies Lab Studies: Microbiology Studies 09/26/17 14:00 Gram Stain - Final Trachasp 09/23/17 08:15 Blood Culture - Preliminary Blood NO GROWTH AFTER 3 DAYS 09/23/17 08:00 Blood Culture - Preliminary Blood NO GROWTH AFTER 3 DAYS 09/24/17 18:00 Gram Stain - Final Body Fluid - Chest Body Fluid Culture - Preliminary NO GROWTH AFTER 2 DAYS Lab Studies 09/27/17 09/26/17 09/26/17 Range/Units 02:33 05:57 04:20 WBC 7.6 (4.8-10.8) K/uL RBC 4.38 L (4.40-5.90) Mil/uL Hgb 12.3 (12.0-18.0) g/dL Hct 39.2 (35.0-51.0) % MCV 89.6 (80.0-94.0) fl MCH 28.0 (27.0-31.0) pg MCHC 31.3 L (33.0-37.0) g/dL RDW 18.9 H (11.5-14.5) % Plt Count 177 (130-400) K/uL MPV 7.8 (7.2-11.7) fl Neut % (Auto) 77.8 H (50.0-75.0) % Lymph % (Auto) 8.3 L (20.0-40.0) % [place] % (Auto) 12.7 H (0.0-10.0) % Eos % (Auto) 0.8 (0.0-4.0) % Baso % (Auto) 0.4 (0.0-2.0) % Neut # 5.9 (1.8-7.0) K/uL Lymph # 0.6 L (1.0-4.3) K/uL [place] # 1.0 H (0.0-0.8) K/uL Eos # 0.1 (0.0-0.7) K/uL Baso # 0.0 (0.0-0.2) K/uL pCO2 69 H (35-45) mm/Hg pO2 49 L (80-100) mm/Hg HCO3 26.0 (21-28) mmol/L ABG pH 7.26 L (7.35-7.45) ABG Total CO2 33.1 H (22-28) mmol/L ABG O2 Saturation 86.8 L (95-98) % ABG O2 Content 16.2 (15-23) ML/dL ABG Base Excess 1.9 (-2.0-3.0) mmol/L ABG Hemoglobin 13.8 (11.7-17.4) g/dL ABG Carboxyhemoglobin 2.5 H (0.5-1.5) % POC ABG HHb (Measured) 12.7 H (0.0-5.0) % ABG Methemoglobin 1.0 (0.0-3.0) % ABG O2 Capacity 18.7 (16-24) mL/dL Broderick Test Yes A-a O2 Difference 578.0 mm/Hg Hgb O2 Saturation 83.8 L (95.0-98.0) % Liter Flow 40 Vent Mode High flow lpm FiO2 100.0 % POC Glucose (mg/dL) 75 (65-110) mg/dL Folate ng/mL 09/25/17 Range/Units 04:45 WBC (4.8-10.8) K/uL RBC (4.40-5.90) Mil/uL Hgb (12.0-18.0) g/dL Hct (35.0-51.0) % MCV (80.0-94.0) fl MCH (27.0-31.0) pg MCHC (33.0-37.0) g/dL RDW (11.5-14.5) % Plt Count (130-400) K/uL MPV (7.2-11.7) fl Neut % (Auto) (50.0-75.0) % Lymph % (Auto) (20.0-40.0) % [place] % (Auto) (0.0-10.0) % Eos % (Auto) (0.0-4.0) % Baso % (Auto) (0.0-2.0) % Neut # (1.8-7.0) K/uL Lymph # (1.0-4.3) K/uL [place] # (0.0-0.8) K/uL Eos # (0.0-0.7) K/uL Baso # (0.0-0.2) K/uL pCO2 (35-45) mm/Hg pO2 (80-100) mm/Hg HCO3 (21-28) mmol/L ABG pH (7.35-7.45) ABG Total CO2 (22-28) mmol/L ABG O2 Saturation (95-98) % ABG O2 Content (15-23) ML/dL ABG Base Excess (-2.0-3.0) mmol/L ABG Hemoglobin (11.7-17.4) g/dL ABG Carboxyhemoglobin (0.5-1.5) % POC ABG HHb (Measured) (0.0-5.0) % ABG Methemoglobin (0.0-3.0) % ABG O2 Capacity (16-24) mL/dL Broderick Test A-a O2 Difference mm/Hg Hgb O2 Saturation (95.0-98.0) % Liter Flow Vent Mode FiO2 % POC Glucose (mg/dL) (65-110) mg/dL Folate > 20.0 ng/mL Laboratory Results - last 24 hr 09/25/17 09/26/17 09/26/17 04:45 04:20 05:57 WBC 7.6 RBC 4.38 L Hgb 12.3 Hct 39.2 MCV 89.6 MCH 28.0 MCHC 31.3 L RDW 18.9 H Plt Count 177 MPV 7.8 Neut % (Auto) 77.8 H Lymph % (Auto) 8.3 L [place] % (Auto) 12.7 H Eos % (Auto) 0.8 Baso % (Auto) 0.4 Neut # 5.9 Lymph # 0.6 L [place] # 1.0 H Eos # 0.1 Baso # 0.0 pCO2 pO2 HCO3 ABG pH ABG Total CO2 ABG O2 Saturation ABG O2 Content ABG Base Excess ABG Hemoglobin ABG Carboxyhemoglobin POC ABG HHb (Measured) ABG Methemoglobin ABG O2 Capacity Broderick Test A-a O2 Difference Hgb O2 Saturation Liter Flow Vent Mode FiO2 POC Glucose (mg/dL) 75 Folate > 20.0 09/27/17 02:33 WBC RBC Hgb Hct MCV MCH MCHC RDW Plt Count MPV Neut % (Auto) Lymph % (Auto) [place] % (Auto) Eos % (Auto) Baso % (Auto) Neut # Lymph # [place] # Eos # Baso # pCO2 69 H pO2 49 L HCO3 26.0 ABG pH 7.26 L ABG Total CO2 33.1 H ABG O2 Saturation 86.8 L ABG O2 Content 16.2 ABG Base Excess 1.9 ABG Hemoglobin 13.8 ABG Carboxyhemoglobin 2.5 H POC ABG HHb (Measured) 12.7 H ABG Methemoglobin 1.0 ABG O2 Capacity 18.7 Broderick Test Yes A-a O2 Difference 578.0 Hgb O2 Saturation 83.8 L Liter Flow 40 Vent Mode High flow lpm FiO2 100.0 POC Glucose (mg/dL) Folate Fingerstick Blood Sugar Results: 83
[2017-09-27] MEDS: Piperacillin/Tazobact 3.375 GM in Sodium Chloride 0.9% 100 ML IVPB SCH ×4 (04:00→22:08)
[2017-09-27 05:06] LABS: HEMOGLOBIN 12.7 g/dL (12.0-18.0); MEAN CELL VOLUME 91.2 fl (80.0-94.0); MEAN CORPUSCULAR HEMOGLOBIN 28.8 pg (27.0-31.0); MEAN CORPUSCULAR HGB CONC 31.5 g/dL (33.0-37.0); RBC 4.4 Mil/uL (4.40-5.90); RED CELL DISTRIBUTION WIDTH 19.3 % (11.5-14.5); WHITE BLOOD COUNT 10.2 K/uL (4.8-10.8)
[2017-09-27 05:19] LABS: ALB/GLOB RATIO 0.9 (1.0-2.1); ALBUMIN 3.3 g/dL (3.5-5.0); CALCIUM 9.1 mg/dL (8.4-10.2)
[2017-09-27 05:47] LABS: ABG ALLEN TEST YES; ARTERIAL BLOOD GAS HCO3 26.7 mmol/L (21-28); ARTERIAL BLOOD GAS HEMOGLOBIN 12.9 g/dL (11.7-17.4); ARTERIAL BLOOD GAS O2 CAPACITY 17.7 mL/dL (16-24); ARTERIAL BLOOD GAS O2 SAT 96.1 % (95-98); ARTERIAL BLOOD GAS PCO2 72 mm/Hg (35-45); ARTERIAL BLOOD GAS PH 7.25 (7.35-7.45); ARTERIAL BLOOD GAS PO2 78 mm/Hg (80-100); ARTERIAL BLOOD GAS TCO2 33.8 mmol/L (22-28)
[2017-09-27] MEDS ORDERED: Digoxin 500 mcg/2ml (0.5 mg/2ml) Inj IVP ONE ×2 (07:27→18:44)
[2017-09-27] MEDS: Albuterol-Ipratrop 3 mg / 0.5 (3 ml) UD INH SCH ×3 (07:33→19:54)
[2017-09-27] MEDS: Acetylcysteine 10% 4 ML IH SCH ×2 (07:33→19:54)
[2017-09-27] MEDS ORDERED: DEXTROSE IV SCH (07:45)
[2017-09-27] MEDS ORDERED: [UNRECOGNIZED DRUG - OTHER] IV SCH (07:45)
[2017-09-27 10:23] LABS: ABG ALLEN TEST YES; ARTERIAL BLOOD GAS HCO3 27.9 mmol/L (21-28); ARTERIAL BLOOD GAS HEMOGLOBIN 12.5 g/dL (11.7-17.4); ARTERIAL BLOOD GAS O2 CAPACITY 17.2 mL/dL (16-24); ARTERIAL BLOOD GAS O2 SAT 98.7 % (95-98); ARTERIAL BLOOD GAS PCO2 61 mm/Hg (35-45); ARTERIAL BLOOD GAS PH 7.32 (7.35-7.45); ARTERIAL BLOOD GAS PO2 115 mm/Hg (80-100); ARTERIAL BLOOD GAS TCO2 33.3 mmol/L (22-28)
[2017-09-27] MEDS: Metoprolol 1 mg/ml Inj IVP SCH ×3 (10:30→22:06)
[2017-09-27] MEDS ORDERED: diltiaZEM 100 mg Vial ( ADD-VANTAGE ) IV ONE (11:55)
--- NOTE | 2017-09-27 12:43 | CP.PCM.PN ---
Subjective - Date & Time of Evaluation Date of Evaluation: 09/27/17 Time of Evaluation: 09:40 - Subjective Subjective: F/U Acute respiratory failure/ PNA Pt Obtunded, on BIPAP Objective - Vital Signs/Intake and Output Vital Signs (last 24 hours): Temp Pulse Resp BP Pulse Ox 98.9 F 150 H 19 169/92 H 100 09/27/17 12:00 09/27/17 12:00 09/27/17 12:00 09/27/17 12:00 09/27/17 12:00 Intake and Output: 09/27/17 09/27/17 06:59 18:59 Intake Total 263 Output Total 245 Balance 18 - Medications Medications: Current Medications Acetylcysteine (Mucomyst 10% 4ml) 2 ml IH RBID [facility]UKI Last Admin: 09/27/17 07:33 Dose: 2 ml Albuterol/Ipratropium (Duoneb 3 Mg/0.5 Mg (3 Ml) Ud) 3 ml INH RQ4 PRN PRN Reason: Shortness of Breath Last Admin: 09/27/17 02:26 Dose: 3 ml Albuterol/Ipratropium (Duoneb 3 Mg/0.5 Mg (3 Ml) Ud) 3 ml INH RQ6 [facility] Last Admin: 09/27/17 07:33 Dose: 3 ml Calcium Carbonate (Oscal) 500 mg PO BIDWM [facility] Last Admin: 09/27/17 08:04 Dose: Not Given Ergocalciferol (Drisdol 50,000 Intl Units Cap) 1 cap PO Q7D [facility] Last Admin: 09/26/17 01:20 Dose: Not Given Famotidine (Pepcid) 20 mg IVP DAILY [facility] Last Admin: 09/27/17 10:00 Dose: 20 mg Vancomycin HCl 1 gm/ Sodium (Chloride) 250 mls @ 250 mls/hr IVPB DAILY [facility] PRN Reason: Protocol Last Admin: 09/27/17 10:04 Dose: 250 mls/hr Piperacillin Sod/Tazobactam (Sod 3.375 gm/ Sodium Chloride) 100 mls @ 100 mls/ hr IVPB Q6 [facility] PRN Reason: Protocol Last Admin: 09/27/17 10:30 Dose: 100 mls/hr Diltiazem HCl 100 mg/ Sodium (Chloride) 100 mls @ 5 mls/hr IV .Q20H ONE; 5 MG/ HR PRN Reason: Protocol Stop: 09/27/17 15:44 Last Admin: 09/27/17 12:01 Dose: 5 mls/hr Dextrose/Sodium Chloride (Dextrose 5%/0.2% Ns 500 Ml) 1,000 mls @ 75 mls/hr IV .[id number] [facility] Stop: 09/28/17 07:46 Last Admin: 09/27/17 08:03 Dose: 75 mls/hr Lamotrigine (Lamictal) 25 mg PO BID [facility] Last Admin: 09/27/17 09:03 Dose: Not Given Lorazepam (Ativan) 2 mg IVP Q6 PRN PRN Reason: SEIZURES Metoprolol Tartrate (Lopressor) 2.5 mg IVP Q6 [facility] Last Admin: 09/27/17 10:30 Dose: 2.5 mg - Labs Labs: 09/27/17 04:20 09/27/17 04:20 PT 32.0 Seconds (9.8-13.1) H D 09/25/17 04:45 INR 2.8 (0.9-1.2) H 09/25/17 04:45 APTT 68.0 Seconds (25.6-37.1) H D 09/23/17 09:57 - Constitutional Appears: No Acute Distress - Head Exam Head Exam: NORMAL INSPECTION - Eye Exam Eye Exam: PERRL - ENT Exam ENT Exam: Normal Exam - Neck Exam Neck Exam: Normal Inspection - Respiratory Exam Respiratory Exam: Decreased Breath Sounds (b/l R>L), Rhonchi (R lung) - Cardiovascular Exam Cardiovascular Exam: Irregular Rhythm - GI/Abdominal Exam GI & Abdominal Exam: Soft, Normal Bowel Sounds - Extremities Exam Additional comments: Edema b/l - Neurological Exam Additional comments: Lethargic, minimal response to tactile stimuli - Psychiatric Exam Additional comments: Lethargic. - Skin Skin Exam: Warm Assessment and Plan (1) Acute respiratory failure with hypoxia Status: Acute (2) Aspiration pneumonia Status: Acute (3) Altered mental status Status: Acute (4) Pleural effusion, bilateral Status: Acute (5) Hx of seizure disorder Status: Chronic (6) A-fib Status: Chronic (7) Diastolic CHF, acute on chronic Status: Acute (8) CANDELARIA (acute kidney injury) Status: Acute (9) Hypothermia Status: Deleted (10) HTN (hypertension) Status: Chronic (11) Collapse of left lung Status: Deleted - Assessment and Plan (Free Text) Plan: R Thoracentesis on hold due to high INR, continue current Tx, monitor INR in AM. +ICU Time: 38 min.
--- NOTE | 2017-09-27 14:44 | CP.PCM.CON ---
History of Present Illness - History of Present Illness History of Present Illness: Reason for consultation: Bilateral pleural effusions despite pigtail cath placements bilat. Requested by: Dr. Serrano. This is a 77 yo male with pmh of CHF and bilateral pleual effusions requiring pigtail cath in April of 2017 for resp failure. The pt is readmitted on with bilateral pleural effusions and accompanying respiratory complications. Left and rightpigtail cath on 09-24-17 and 09-25-17 respectively. FU imaging studies show persistent bilateral effusions requiring resp support minus intubation as refuses such rx. I am incline to recommend chsst tubes and talc slurry pleurodesis in OR under IV sedation and local. d/w Drs. Serrano and Keisha. Past Patient History - Infectious Disease Hx of Infectious Diseases: None - Past Medical History & Family History Past Medical History?: Yes - Past Social History Smoking Status: Never Smoked Alcohol: None Drugs: Denies Home Situation {Lives}: With Family - CARDIAC Hx Atrial Fibrillation: Yes Hx Congestive Heart Failure: Yes Hx Hypertension: Yes Hx Peripheral Edema: Yes - PULMONARY Hx Sleep Apnea: Yes - NEUROLOGICAL Hx Seizures: Yes Hx Transient Ischemic Attacks (TIA): Yes - HEENT Hx HEENT Problems: No - RENAL Hx Chronic Kidney Disease: No - ENDOCRINE/METABOLIC Hx Endocrine Disorders: No - HEMATOLOGICAL/ONCOLOGICAL Hx Human Immunodeficiency Virus (HIV): No - INTEGUMENTARY Hx Dermatological Problems: No - MUSCULOSKELETAL/RHEUMATOLOGICAL Hx Musculoskeletal Disorders: Yes Hx Falls: Yes Hx Unsteady Gait: Yes - GASTROINTESTINAL Hx Gastrointestinal Disorders: No - GENITOURINARY/GYNECOLOGICAL Hx Genitourinary Disorders: Yes Hx Incontinence: Yes Hx Prostate Problems: Yes (BPH) - PSYCHIATRIC Hx Psychophysiologic Disorder: Yes Hx Hallucinations: Yes Hx Substance Use: No - SURGICAL HISTORY Hx Surgeries: No - ANESTHESIA Hx Anesthesia: No Meds Allergies/Adverse Reactions: Allergies Allergy/AdvReac Type Severity Reaction Status Date / Time EGG AdvReac HEADACHE Verified 09/23/17 07:32 seafoods Allergy SWELLING Uncoded 09/23/17 07:32 - Medications Medications: Current Medications Acetylcysteine (Mucomyst 10% 4ml) 2 ml IH RBID [facility]I Last Admin: 09/27/17 07:33 Dose: 2 ml Albuterol/Ipratropium (Duoneb 3 Mg/0.5 Mg (3 Ml) Ud) 3 ml INH RQ4 PRN PRN Reason: Shortness of Breath Last Admin: 09/27/17 02:26 Dose: 3 ml Albuterol/Ipratropium (Duoneb 3 Mg/0.5 Mg (3 Ml) Ud) 3 ml INH RQ6 [facility] Last Admin: 09/27/17 13:18 Dose: 3 ml Calcium Carbonate (Oscal) 500 mg PO BIDWM [facility] Last Admin: 09/27/17 08:04 Dose: Not Given Ergocalciferol (Drisdol 50,000 Intl Units Cap) 1 cap PO Q7D [facility] Last Admin: 09/26/17 01:20 Dose: Not Given Famotidine (Pepcid) 20 mg IVP DAILY [facility] Last Admin: 09/27/17 10:00 Dose: 20 mg Vancomycin HCl 1 gm/ Sodium (Chloride) 250 mls @ 250 mls/hr IVPB DAILY [facility] PRN Reason: Protocol Last Admin: 09/27/17 10:04 Dose: 250 mls/hr Piperacillin Sod/Tazobactam (Sod 3.375 gm/ Sodium Chloride) 100 mls @ 100 mls/ hr IVPB Q6 [facility]UKI PRN Reason: Protocol Last Admin: 09/27/17 10:30 Dose: 100 mls/hr Diltiazem HCl 100 mg/ Sodium (Chloride) 100 mls @ 5 mls/hr IV .Q20H ONE; 5 MG/ HR PRN Reason: Protocol Stop: 09/27/17 15:44 Last Admin: 09/27/17 12:01 Dose: 5 mls/hr Dextrose/Sodium Chloride (Dextrose 5%/0.2% Ns 500 Ml) 1,000 mls @ 75 mls/hr IV .[id number] [facility] Stop: 09/28/17 07:46 Last Admin: 09/27/17 08:03 Dose: 75 mls/hr Lamotrigine (Lamictal) 25 mg PO BID [facility] Last Admin: 09/27/17 09:03 Dose: Not Given Lorazepam (Ativan) 2 mg IVP Q6 PRN PRN Reason: SEIZURES Metoprolol Tartrate (Lopressor) 2.5 mg IVP Q6 [facility] Last Admin: 09/27/17 10:30 Dose: 2.5 mg Results - Vital Signs Recent Vital Signs: Last Vital Signs Temp 98.9 F 09/27/17 12:00 Pulse 150 H 09/27/17 12:00 Resp 19 09/27/17 12:00 BP 169/92 H 09/27/17 12:00 Pulse Ox 100 09/27/17 12:00 - Labs Result Diagrams: 09/27/17 04:20 09/27/17 04:20 Labs: Laboratory Results - last 24 hr 09/25/17 09/27/17 09/27/17 04:45 02:33 04:20 WBC 10.2 RBC 4.40 Hgb 12.7 Hct 40.1 MCV 91.2 MCH 28.8 MCHC 31.5 L RDW 19.3 H Plt Count 182 pCO2 69 H pO2 49 L HCO3 26.0 ABG pH 7.26 L ABG Total CO2 33.1 H ABG O2 Saturation 86.8 L ABG O2 Content 16.2 ABG Base Excess 1.9 ABG Hemoglobin 13.8 ABG Carboxyhemoglobin 2.5 H POC ABG HHb (Measured) 12.7 H ABG Methemoglobin 1.0 ABG O2 Capacity 18.7 Broderick Test Yes A-a O2 Difference 578.0 Hgb O2 Saturation 83.8 L Liter Flow 40 Vent Mode High flow lpm Mechanical Rate FiO2 100.0 Inspiratory BiPAP Expiratory BiPAP Crit Value Called To Crit Value Called By Crit Value Read Back Blood Gas Notified Time Sodium Potassium Chloride Carbon Dioxide Anion Gap BUN Creatinine Est GFR ( Amer) Est GFR (Non-Af Amer) Random Glucose Calcium Total Bilirubin AST ALT Alkaline Phosphatase Total Protein Albumin Globulin Albumin/Globulin Ratio Folate > 20.0 09/27/17 09/27/17 09/27/17 04:20 05:23 09:52 WBC RBC Hgb Hct MCV MCH MCHC RDW Plt Count pCO2 72 H* 61 H pO2 78 L 115 H HCO3 26.7 27.9 ABG pH 7.25 L 7.32 L ABG Total CO2 33.8 H 33.3 H ABG O2 Saturation 96.1 98.7 H ABG O2 Content 17.0 17.0 ABG Base Excess 2.4 3.8 H ABG Hemoglobin 12.9 12.5 ABG Carboxyhemoglobin 2.0 H 1.7 H POC ABG HHb (Measured) 3.8 1.3 ABG Methemoglobin 0.9 1.2 ABG O2 Capacity 17.7 17.2 Broderick Test Yes Yes A-a O2 Difference 545.0 522.0 Hgb O2 Saturation 93.4 L 95.8 Liter Flow Vent Mode Bipap Bipap Mechanical Rate 18 18 FiO2 100.0 100.0 Inspiratory BiPAP 12 15 Expiratory BiPAP 5 8 Crit Value Called To Dr hubert li Crit Value Called By 333 Crit Value Read Back Y Blood Gas Notified Time 546 Sodium 150 H Potassium 4.6 Chloride 113 H Carbon Dioxide 27 Anion Gap 15 BUN 45 H Creatinine 1.8 H Est GFR ( Amer) 44 Est GFR (Non-Af Amer) 37 Random Glucose 93 Calcium 9.1 Total Bilirubin 1.6 H AST 33 ALT 38 Alkaline Phosphatase 112 Total Protein 7.1 Albumin 3.3 L Globulin 3.8 Albumin/Globulin Ratio 0.9 L Folate
[2017-09-27 16:56] LABS: INR 6.6 (0.9-1.2); PROTHROMBIN TIME 77.7 Seconds (9.8-13.1)
--- NOTE | 2017-09-27 17:43 | RAD ---
PROCEDURE: CHEST RADIOGRAPH, 1 VIEW HISTORY: desaturation COMPARISON: 09/26/2017 FINDINGS: LUNGS: Opacity throughout the lower left lung. Comparison to prior examination is somewhat limited. Possible pneumonia. Cannot rule out right-sided infiltrate due to superimposed large pleural effusion. PLEURA: Large right pleural effusion. Small left pleural effusion. No pneumothorax. Lung apices partially obscured by patient's mandible. CARDIOVASCULAR: Permanent pacemaker OSSEOUS STRUCTURES: No significant abnormalities. VISUALIZED UPPER ABDOMEN: Normal. OTHER FINDINGS: None. IMPRESSION: Left lower lung opacity possibly infiltrate/pneumonia. Large right and small left pleural effusions.
--- NOTE | 2017-09-27 18:35 | CP.CCUPN ---
CCU Subjective - Physician Review Subjective (Free Text): Events overnight leading to BiPAP placement noted and discussed with Night Hospitalist covering ICU: he remains on BiPAP support and settings changed in increase TV to at least above 200-250 ml, was at 150 ml overnight. PCO2 levels improved to 61, but he still remains very lethargic and often times unarousable to loud verbal stimuli and tactile stimuli; different from wifes interpretation of his mental status as opening his eyes and speaking. He remains on 100% oxygen, SPO2 at 100%. Discussed with Dr. Escamilla regarding relative contraindication (if not absolute) regarding patients obtunded mental status while on BIPAP, since he cannot protect his own airway. has consistently now criticized the need for oral intubation and ventilatory support, stating all you want to do is intubate all the time. Discussed Dr. Majano desire to perform another FOB BAL procedure of the R lung if no appreciable pleural effusion is noted on US exam; and if so , have IR place another pigtail on the R to drain any other loculated collection. A STAT INR was 6.6 precluding any procedure now. Thoracic surgery now considering possible regular bore Chest tube insertion for pleuredesis. Other vitals and I/O's reviewed. ROS: Unobtainable due to lethargy. No other pertinent negs or positives on 10+ system review. PMSFH: All other Nursing and physician documentation reviewed to date; no new pertinent info noted relevant to current medical problems. IMPRESSION / MAJOR PROBLEMS NOW: 1. Acute Resp ( Hypoxemic) failure 2 bilat effusions, and compressive atelectasis, unclear if any superimposed pneumonitic process. 2. Encephalopathy: etiology unclear, ?? metabolic vs cryptogenic seizures vs ?? CVA?? 3. Chronic A Fib, presently with controlled VR 4. r/o Cardiomyopathy vs Diastolic Dysfx CHF 5. Azotemia, CKD III ( Bun/Cr was 36/1.5 at the time of last hospital discharge) 6. Warfarin induced-coagulopathy PLAN: 1. Appears persistently obtunded despite some improvement in PCO2 levels, and this precludes safe BiPAP use. appears to adamantly refuse oral intubation and MV support. Will have sign Refusal of Treatment form. Risk Mgmt department informed. 2. INR elevation noted, will need correction again for any anticipated procedure. 3. Consider repeat Brain imaging to r/o embolic CVA given chronic A Fib. 4. has refused NGT placement for enteral feedings and now PMD wants PICC line for TPN. [place] situation would be to use intact GI tract for nutritional support via NGT or PEG. 5. No observable seizure activity as he has been off Lamictal PO with NPO status. EEG done today , awaiting results. 6. Digoxin resumed to control VR, remains on Cardizem infusion. 7. Resumed Metoprolol via IV route. CCU Objective - Vital Signs / Intake & Output Vital Signs (Last 4 hours): Vital Signs Pulse BP 09/27/17 17:03 113 H 151/88 H 09/27/17 15:05 94 H Intake and Output (Last 8hrs): Intake & Output 09/27/17 09/27/17 09/27/17 06:59 14:59 22:59 Intake Total 143 Output Total 245 Balance -102 Intake: IV 43 Intake, Piggyback 100 Output: Chest Tube Drainage 245 Left Lateral Chest 245 - Physical Exam Head: Positive for: Atraumatic, Normocephalic Pupils: Positive for: PERRL, Sluggish Extroacular Muscles: Positive for: EOMI Conjunctiva: Positive for: Normal. Negative for: Icteric Ears: Positive for: Normal Mouth: Positive for: Moist Mucous Membranes Pharnyx: Negative for: ERYTHEMA Neck: Positive for: Normal Range of Motion. Negative for: JVD Respiratory/Chest: Positive for: Decreased Breath Sounds, Rhonchi (upper airway rhonchi), Tachypneic. Negative for: Accessory Muscle Use, Wheezes Cardiovascular: Positive for: Irregular Rhythm, Peripheal Pulses Present. Negative for: Murmurs, Normal S1, S2, Tachycardic, Bradycardic Abdomen: Positive for: Normal Bowel Sounds. Negative for: Tenderness, Distention, Peritoneal Signs Upper Extremity: Positive for: Edema Lower Extremity: Positive for: Edema, NORMAL PULSES. Negative for: CALF TENDERNESS, Cyanosis Neurological: Positive for: Other (withdraws to deep pain) Skin: Positive for: Warm. Negative for: Rashes Psychiatric: Positive for: Lethargic - Medications Active Medications: Active Medications Generic Name Dose Route Start Last Admin Trade Name Freq PRN Reason Stop Dose Admin Acetylcysteine 2 ml 09/26/17 20:00 11/17/17 07:33 Mucomyst 10% 4ml IH 2 ml RBID YUKI Administration Albuterol/Ipratropium 3 ml 09/23/17 17:59 09/27/17 02:26 Duoneb 3 Mg/0.5 Mg (3 Ml) Ud INH 3 ml RQ4 PRN Administration Shortness of Breath Albuterol/Ipratropium 3 ml 09/27/17 08:00 09/27/17 13:18 Duoneb 3 Mg/0.5 Mg (3 Ml) Ud INH 3 ml RQ6 YUKI Administration Calcium Carbonate 500 mg 09/26/17 08:00 09/27/17 17:01 Oscal PO Not Given BIDWM YUKI Digoxin 0.25 mg 09/28/17 09:00 Lanoxin IVP DAILY [facility] Ergocalciferol 1 cap 09/25/17 23:45 09/26/17 01:20 Drisdol 50,000 Intl Units Cap PO Not Given Q7D YUKI Famotidine 20 mg 09/25/17 09:00 09/27/17 10:00 Pepcid IVP 20 mg DAILY YUKI Administration Vancomycin HCl 1 gm/ Sodium 250 mls @ 250 mls/hr 09/23/17 17:44 09/27/17 10: 04 Chloride IVPB 250 mls/hr DAILY YUKI Administration Protocol Piperacillin Sod/Tazobactam 100 mls @ 100 mls/hr 09/25/17 16:00 09/27/17 17: 03 Sod 3.375 gm/ Sodium Chloride IVPB 100 mls/hr Q6 YUKI Administration Protocol Dextrose/Sodium Chloride 1,000 mls @ 75 mls/hr 09/27/17 07:45 09/27/17 08:03 Dextrose 5%/0.2% Ns 500 Ml IV 09/28/17 07:46 75 mls/hr .[id number] YUKI Administration Lamotrigine 25 mg 09/23/17 18:15 09/27/17 17:01 Lamictal PO Not Given BID YUKI Lorazepam 2 mg 09/25/17 04:00 Ativan IVP Q6 PRN SEIZURES Metoprolol Tartrate 2.5 mg 09/27/17 10:00 09/27/17 17:03 Lopressor IVP 2.5 mg Q6 YUKI Administration - Patient Studies Lab Studies: Microbiology Studies 09/23/17 08:15 Blood Culture - Preliminary Blood NO GROWTH AFTER 4 DAYS 09/23/17 08:00 Blood Culture - Preliminary Blood NO GROWTH AFTER 4 DAYS 09/24/17 18:00 Gram Stain - Final Body Fluid - Chest Body Fluid Culture - Preliminary NO GROWTH AFTER 3 DAYS 09/26/17 14:00 Gram Stain - Final Trachasp Lab Studies 09/27/17 09/27/17 09/27/17 Range/Units 16:42 09:52 05:23 WBC (4.8-10.8) K/uL RBC (4.40-5.90) Mil/uL Hgb (12.0-18.0) g/dL Hct (35.0-51.0) % MCV (80.0-94.0) fl MCH (27.0-31.0) pg MCHC (33.0-37.0) g/dL RDW (11.5-14.5) % Plt Count (130-400) K/uL PT 77.7 H* D (9.8-13.1) Seconds INR 6.6 H D (0.9-1.2) pCO2 61 H 72 H* (35-45) mm/Hg pO2 115 H 78 L (80-100) mm/Hg HCO3 27.9 26.7 (21-28) mmol/L ABG pH 7.32 L 7.25 L (7.35-7.45) ABG Total CO2 33.3 H 33.8 H (22-28) mmol/L ABG O2 Saturation 98.7 H 96.1 (95-98) % ABG O2 Content 17.0 17.0 (15-23) ML/dL ABG Base Excess 3.8 H 2.4 (-2.0-3.0) mmol/L ABG Hemoglobin 12.5 12.9 (11.7-17.4) g/dL ABG Carboxyhemoglobin 1.7 H 2.0 H (0.5-1.5) % POC ABG HHb (Measured) 1.3 3.8 (0.0-5.0) % ABG Methemoglobin 1.2 0.9 (0.0-3.0) % ABG O2 Capacity 17.2 17.7 (16-24) mL/dL Broderick Test Yes Yes A-a O2 Difference 522.0 545.0 mm/Hg Hgb O2 Saturation 95.8 93.4 L (95.0-98.0) % Liter Flow Vent Mode Bipap Bipap Mechanical Rate 18 18 FiO2 100.0 100.0 % Inspiratory BiPAP 15 12 Expiratory BiPAP 8 5 Crit Value Called To Dr hubert li Crit Value Called By 333 Crit Value Read Back Y Blood Gas Notified Time 546 Sodium (132-148) mmol/l Potassium (3.6-5.0) MMOL/L Chloride (98-107) mmol/L Carbon Dioxide (22-30) mmol/L Anion Gap (10-20) BUN (9-20) mg/dl Creatinine (0.8-1.5) mg/dl Est GFR ( Amer) Est GFR (Non-Af Amer) Random Glucose (75-110) mg/dL Calcium (8.4-10.2) mg/dL Total Bilirubin (0.2-1.3) mg/dl AST (17-59) U/L ALT (21-72) U/L Alkaline Phosphatase (38-126) U/L Total Protein (6.3-8.2) G/DL Albumin (3.5-5.0) g/dL Globulin (2.2-3.9) gm/dL Albumin/Globulin Ratio (1.0-2.1) 09/27/17 09/27/17 09/27/17 Range/Units 04:20 04:20 02:33 WBC 10.2 (4.8-10.8) K/uL RBC 4.40 (4.40-5.90) Mil/uL Hgb 12.7 (12.0-18.0) g/dL Hct 40.1 (35.0-51.0) % MCV 91.2 (80.0-94.0) fl MCH 28.8 (27.0-31.0) pg MCHC 31.5 L (33.0-37.0) g/dL RDW 19.3 H (11.5-14.5) % Plt Count 182 (130-400) K/uL PT (9.8-13.1) Seconds INR (0.9-1.2) pCO2 69 H (35-45) mm/Hg pO2 49 L (80-100) mm/Hg HCO3 26.0 (21-28) mmol/L ABG pH 7.26 L (7.35-7.45) ABG Total CO2 33.1 H (22-28) mmol/L ABG O2 Saturation 86.8 L (95-98) % ABG O2 Content 16.2 (15-23) ML/dL ABG Base Excess 1.9 (-2.0-3.0) mmol/L ABG Hemoglobin 13.8 (11.7-17.4) g/dL ABG Carboxyhemoglobin 2.5 H (0.5-1.5) % POC ABG HHb (Measured) 12.7 H (0.0-5.0) % ABG Methemoglobin 1.0 (0.0-3.0) % ABG O2 Capacity 18.7 (16-24) mL/dL Broderick Test Yes A-a O2 Difference 578.0 mm/Hg Hgb O2 Saturation 83.8 L (95.0-98.0) % Liter Flow 40 Vent Mode High flow lpm Mechanical Rate FiO2 100.0 % Inspiratory BiPAP Expiratory BiPAP Crit Value Called To Crit Value Called By Crit Value Read Back Blood Gas Notified Time Sodium 150 H (132-148) mmol/l Potassium 4.6 (3.6-5.0) MMOL/L Chloride 113 H (98-107) mmol/L Carbon Dioxide 27 (22-30) mmol/L Anion Gap 15 (10-20) BUN 45 H (9-20) mg/dl Creatinine 1.8 H (0.8-1.5) mg/dl Est GFR ( Amer) 44 Est GFR (Non-Af Amer) 37 Random Glucose 93 (75-110) mg/dL Calcium 9.1 (8.4-10.2) mg/dL Total Bilirubin 1.6 H (0.2-1.3) mg/dl AST 33 (17-59) U/L ALT 38 (21-72) U/L Alkaline Phosphatase 112 (38-126) U/L Total Protein 7.1 (6.3-8.2) G/DL Albumin 3.3 L (3.5-5.0) g/dL Globulin 3.8 (2.2-3.9) gm/dL Albumin/Globulin Ratio 0.9 L (1.0-2.1) Laboratory Results - last 24 hr 11/17/17 11/17/17 11/17/17 02:33 04:20 04:20 WBC 10.2 RBC 4.40 Hgb 12.7 Hct 40.1 MCV 91.2 MCH 28.8 MCHC 31.5 L RDW 19.3 H Plt Count 182 PT INR pCO2 69 H pO2 49 L HCO3 26.0 ABG pH 7.26 L ABG Total CO2 33.1 H ABG O2 Saturation 86.8 L ABG O2 Content 16.2 ABG Base Excess 1.9 ABG Hemoglobin 13.8 ABG Carboxyhemoglobin 2.5 H POC ABG HHb (Measured) 12.7 H ABG Methemoglobin 1.0 ABG O2 Capacity 18.7 Broderick Test Yes A-a O2 Difference 578.0 Hgb O2 Saturation 83.8 L Liter Flow 40 Vent Mode High flow lpm Mechanical Rate FiO2 100.0 Inspiratory BiPAP Expiratory BiPAP Crit Value Called To Crit Value Called By Crit Value Read Back Blood Gas Notified Time Sodium 150 H Potassium 4.6 Chloride 113 H Carbon Dioxide 27 Anion Gap 15 BUN 45 H Creatinine 1.8 H Est GFR ( Amer) 44 Est GFR (Non-Af Amer) 37 Random Glucose 93 Calcium 9.1 Total Bilirubin 1.6 H AST 33 ALT 38 Alkaline Phosphatase 112 Total Protein 7.1 Albumin 3.3 L Globulin 3.8 Albumin/Globulin Ratio 0.9 L 09/27/17 09/27/17 09/27/17 05:23 09:52 16:42 WBC RBC Hgb Hct MCV MCH MCHC RDW Plt Count PT 77.7 H* D INR 6.6 H D pCO2 72 H* 61 H pO2 78 L 115 H HCO3 26.7 27.9 ABG pH 7.25 L 7.32 L ABG Total CO2 33.8 H 33.3 H ABG O2 Saturation 96.1 98.7 H ABG O2 Content 17.0 17.0 ABG Base Excess 2.4 3.8 H ABG Hemoglobin 12.9 12.5 ABG Carboxyhemoglobin 2.0 H 1.7 H POC ABG HHb (Measured) 3.8 1.3 ABG Methemoglobin 0.9 1.2 ABG O2 Capacity 17.7 17.2 Broderick Test Yes Yes A-a O2 Difference 545.0 522.0 Hgb O2 Saturation 93.4 L 95.8 Liter Flow Vent Mode Bipap Bipap Mechanical Rate 18 18 FiO2 100.0 100.0 Inspiratory BiPAP 12 15 Expiratory BiPAP 5 8 Crit Value Called To Dr hubert li Crit Value Called By 333 Crit Value Read Back Y Blood Gas Notified Time 546 Sodium Potassium Chloride Carbon Dioxide Anion Gap BUN Creatinine Est GFR ( Amer) Est GFR (Non-Af Amer) Random Glucose Calcium Total Bilirubin AST ALT Alkaline Phosphatase Total Protein Albumin Globulin Albumin/Globulin Ratio Fingerstick Blood Sugar Results: 83 Review of Systems - Review of Systems Systems not reviewed;Unavailable: Altered Mental Status
--- NOTE | 2017-09-27 23:48 | CP.PCM.PN ---
Subjective - Date & Time of Evaluation Date of Evaluation: 09/27/17 Time of Evaluation: 01:00 - Subjective Subjective: Today he is not responsive and his CPAP and Chest tube are reevaluated. There is no seizures, only respiratory problems and sleep apnea related problems. High BP is remarkable. Objective - Vital Signs/Intake and Output Vital Signs (last 24 hours): Temp Pulse Resp BP Pulse Ox 98.1 F 110 H 24 171/74 H 97 09/27/17 16:00 09/27/17 23:15 09/27/17 18:00 09/27/17 22:06 09/27/17 18:00 - Medications Medications: Current Medications Acetylcysteine (Mucomyst 10% 4ml) 2 ml IH RBID [facility] Last Admin: 09/27/17 19:54 Dose: 2 ml Albuterol/Ipratropium (Duoneb 3 Mg/0.5 Mg (3 Ml) Ud) 3 ml INH RQ4 PRN PRN Reason: Shortness of Breath Last Admin: 09/27/17 02:26 Dose: 3 ml Albuterol/Ipratropium (Duoneb 3 Mg/0.5 Mg (3 Ml) Ud) 3 ml INH RQ6 YUKI Last Admin: 09/27/17 19:54 Dose: 3 ml Calcium Carbonate (Oscal) 500 mg PO BIDWM [facility] Last Admin: 09/27/17 17:01 Dose: Not Given Ergocalciferol (Drisdol 50,000 Intl Units Cap) 1 cap PO Q7D [facility] Last Admin: 09/26/17 01:20 Dose: Not Given Famotidine (Pepcid) 20 mg IVP DAILY [facility] Last Admin: 09/27/17 10:00 Dose: 20 mg Vancomycin HCl 1 gm/ Sodium (Chloride) 250 mls @ 250 mls/hr IVPB DAILY YUKI PRN Reason: Protocol Last Admin: 09/27/17 10:04 Dose: 250 mls/hr Piperacillin Sod/Tazobactam (Sod 3.375 gm/ Sodium Chloride) 100 mls @ 100 mls/ hr IVPB Q6 YUKI PRN Reason: Protocol Last Admin: 09/27/17 22:08 Dose: 100 mls/hr Dextrose/Sodium Chloride (Dextrose 5%/0.2% Ns 500 Ml) 1,000 mls @ 75 mls/hr IV .[id number] YUKI Stop: 09/28/17 07:46 Last Admin: 09/27/17 08:03 Dose: 75 mls/hr Lamotrigine (Lamictal) 25 mg PO BID [facility] Last Admin: 09/27/17 17:01 Dose: Not Given Lorazepam (Ativan) 2 mg IVP Q6 PRN PRN Reason: SEIZURES Metoprolol Tartrate (Lopressor) 2.5 mg IVP Q6 [facility] Last Admin: 09/27/17 22:06 Dose: 2.5 mg - Labs Labs: 09/27/17 04:20 09/27/17 04:20 PT 77.7 Seconds (9.8-13.1) H* D 09/27/17 16:42 INR 6.6 (0.9-1.2) H D 09/27/17 16:42 APTT 68.0 Seconds (25.6-37.1) H D 09/23/17 09:57 Assessment and Plan (1) CANDELARIA (acute kidney injury) Status: Acute (2) Acute respiratory failure Status: Acute (3) Altered mental status Status: Acute (4) Hypothermia Status: Acute (5) Pleural effusion, bilateral Status: Acute (6) Pneumonia Status: Acute (7) Seizure disorder Status: Suspected (8) Encephalopathy Status: Acute
[2017-09-28] MEDS: Albuterol-Ipratrop 3 mg / 0.5 (3 ml) UD INH SCH ×6 (01:01→23:22)
[2017-09-28] MEDS: Metoprolol 1 mg/ml Inj IVP SCH ×4 (04:00→22:15)
[2017-09-28] MEDS: Piperacillin/Tazobact 3.375 GM in Sodium Chloride 0.9% 100 ML IVPB SCH ×4 (04:00→23:30)
[2017-09-28 06:18] LABS: HEMOGLOBIN 13.8 g/dL (12.0-18.0); MEAN CELL VOLUME 90.1 fl (80.0-94.0); MEAN CORPUSCULAR HGB CONC 32.1 g/dL (33.0-37.0); RBC 4.75 Mil/uL (4.40-5.90); RED CELL DISTRIBUTION WIDTH 19.4 % (11.5-14.5); WHITE BLOOD COUNT 9.4 K/uL (4.8-10.8)
[2017-09-28 06:44] LABS: ALB/GLOB RATIO 0.9 (1.0-2.1); ALBUMIN 3.3 g/dL (3.5-5.0); CALCIUM 9.5 mg/dL (8.4-10.2)
[2017-09-28 07:53] LABS: ABG ALLEN TEST YES; ARTERIAL BLOOD GAS HCO3 27.9 mmol/L (21-28); ARTERIAL BLOOD GAS HEMOGLOBIN 13.1 g/dL (11.7-17.4); ARTERIAL BLOOD GAS O2 CAPACITY 17.9 mL/dL (16-24); ARTERIAL BLOOD GAS O2 CONTENT 17.3 ML/dL (15-23); ARTERIAL BLOOD GAS O2 SAT 96.4 % (95-98); ARTERIAL BLOOD GAS PCO2 58 mm/Hg (35-45); ARTERIAL BLOOD GAS PH 7.34 (7.35-7.45); ARTERIAL BLOOD GAS PO2 78 mm/Hg (80-100); ARTERIAL BLOOD GAS TCO2 33.1 mmol/L (22-28)
[2017-09-28] MEDS: Acetylcysteine 10% 4 ML IH SCH ×2 (07:55→19:39)
--- NOTE | 2017-09-28 08:51 | RAD ---
PROCEDURE: CHEST RADIOGRAPH, 1 VIEW HISTORY: hypoxia COMPARISON: Portable chest 09/27/2017. FINDINGS: LUNGS: Distension of bowel or stomach or prominent ascites limits inspiratory volume in the chest particularly at the right side. Follow abdomen and pelvis CT with contrast is recommended for better characterization of this finding. Bilateral basilar airspace disease increased at the right and unchanged at the left with small likely bilateral pleural effusions present. No definite interval pneumothorax. Mild pulmonary vascular derangement is not excluded. Rare borders obscured by abdomen findings. OSSEOUS STRUCTURES: No significant abnormalities. OTHER FINDINGS: None. IMPRESSION: Interval worsening in airspace disease at the mid to inferior right lung zone at the left base with trace small bilateral pleural effusions likely present once again. No vascular derangement persists. Excursion of the right hemidiaphragm is constricted by abnormal distention of the abdomen with limited involvement of the left hemidiaphragm as well. Follow-up abdomen pelvis CT is advised for greater characterization of potential advanced abdominal pathology. Clinical correlation is also advised.
[2017-09-28] MEDS ORDERED: Digoxin 500 mcg/2ml (0.5 mg/2ml) Inj IVP SCH (09:00)
--- NOTE | 2017-09-28 09:03 | RAD ---
HISTORY: Post- FOB / BAL COMPARISON: Portable chest 09/26/2017 08:44 a.m.. FINDINGS: Pacemaker in position. LUNGS: Prominent left hemithorax opacification is grossly reduced limited left basilar opacity reflecting likely residual pleural effusion and possible underlying airspace disease as well. And limited right basilar airspace disease is also seen and is unchanged with small right pleural effusion likely. Bilateral chest tubes are suggested in position though both may have been adjusted. Pacemaker in position. There is some under penetration and is difficult to exclude an element of pulmonary venous congestion at this time. Cardiac silhouette appears prominent. Displaced of the trachea toward the left by right paratracheal great vessels or substernal thyroid is noted. VISUALIZED UPPER ABDOMEN: A distended abdomen is question with gas-filled viscus or ascites potentially. Follow-up CT recommended. OTHER FINDINGS: None. IMPRESSION: Marked improvement in aeration of the left hemithorax with limited residual airspace disease in left pleural effusion at the base. Right basilar airspace disease an minimal pleural effusion likely remains as well with bilateral chest tubes noted placed and potentially slightly repositioned. Pacemaker noted.
--- NOTE | 2017-09-28 11:05 | CP.PCM.PN ---
Subjective - Date & Time of Evaluation Date of Evaluation: 09/28/17 Time of Evaluation: 06:45 - Subjective Subjective: Surgery- Dr. Rascon Patient seen and examined at bedside this morning. During encounter patient saturation dropped to 75. Patient on BiPAP, and extremities were cold. No accessory muscle use. Patient saturation increased to normal range after extremities were warmed. Right pigtail no output at bedside during encounter Objective - Vital Signs/Intake and Output Vital Signs (last 24 hours): Temp Pulse Resp BP Pulse Ox 96.6 F L 107 H 29 H 151/68 H 93 L 09/28/17 08:00 09/28/17 10:00 09/28/17 10:00 09/28/17 10:00 09/28/17 10:00 Intake and Output: 09/28/17 09/28/17 06:59 18:59 Intake Total 740 725 Balance 740 725 - Medications Medications: Current Medications Acetylcysteine (Mucomyst 10% 4ml) 2 ml IH RBID [facility] Last Admin: 09/28/17 07:55 Dose: 2 ml Albuterol/Ipratropium (Duoneb 3 Mg/0.5 Mg (3 Ml) Ud) 3 ml INH RQ4 YUKI Calcium Carbonate (Oscal) 500 mg PO BIDWM [facility] Last Admin: 09/28/17 08:12 Dose: Not Given Ergocalciferol (Drisdol 50,000 Intl Units Cap) 1 cap PO Q7D [facility] Last Admin: 09/26/17 01:20 Dose: Not Given Famotidine (Pepcid) 20 mg IVP DAILY [facility] Last Admin: 09/28/17 09:20 Dose: 20 mg Vancomycin HCl 1 gm/ Sodium (Chloride) 250 mls @ 250 mls/hr IVPB DAILY YUKI PRN Reason: Protocol Last Admin: 09/28/17 08:12 Dose: 250 mls/hr Piperacillin Sod/Tazobactam (Sod 3.375 gm/ Sodium Chloride) 100 mls @ 100 mls/ hr IVPB Q6 YUKI PRN Reason: Protocol Last Admin: 09/28/17 10:04 Dose: 100 mls/hr Diltiazem HCl 125 mg/ Sodium (Chloride) 125 mls @ 7.5 mls/hr IV .[id number] ONE; 7.5 MG/HR PRN Reason: Protocol Stop: 09/28/17 18:32 Last Admin: 09/28/17 02:00 Dose: 7.5 mg/hr, 7.5 mls/hr Dextrose (Dextrose 5% In Water) 500 mls @ 150 mls/hr IV .Q3H20M [facility] Stop: 09/29/17 07:15 Last Admin: 09/28/17 07:45 Dose: 150 mls/hr Lamotrigine (Lamictal) 25 mg PO BID [facility] Last Admin: 09/28/17 08:12 Dose: Not Given Lorazepam (Ativan) 2 mg IVP Q6 PRN PRN Reason: SEIZURES Metoprolol Tartrate (Lopressor) 2.5 mg IVP Q6 [facility] Last Admin: 09/28/17 09:20 Dose: 2.5 mg - Labs Labs: 09/28/17 05:30 09/28/17 05:30 PT 77.7 Seconds (9.8-13.1) H* D 09/27/17 16:42 INR 6.6 (0.9-1.2) H D 09/27/17 16:42 APTT 68.0 Seconds (25.6-37.1) H D 09/23/17 09:57 - Constitutional Appears: Non-toxic, No Acute Distress - Eye Exam Eye Exam: EOMI. absent: Scleral icterus - ENT Exam ENT Exam: Mucous Membranes Moist - Respiratory Exam Respiratory Exam: NORMAL BREATHING PATTERN. absent: Accessory Muscle Use Additional comments: BiPAP on. saturation 88%. patient breathing comfortably. - Cardiovascular Exam Cardiovascular Exam: Tachycardia, +S1, +S2. absent: Bradycardia - GI/Abdominal Exam GI & Abdominal Exam: Soft. absent: Distended, Firm, Guarding, Rigid, Tenderness - Neurological Exam Neurological Exam: Alert, Awake Additional comments: opens eyes to touch. withdraws from pain - Skin Skin Exam: Intact Assessment and Plan - Assessment and Plan (Free Text) Assessment: 77M w/ bilateral pleural effusions, s/p bilateral chest pigtail catheter placement left pigtail catheter out Plan: Possible bronch today by pulm Plan for OR next week for bilateral chest tube placement w/ talc Right pigtail to suction further recs per Dr. Tarah Choi PGY1
[2017-09-28] MEDS ORDERED: Digoxin 500 mcg/2ml (0.5 mg/2ml) Inj IVP ONE (13:18)
[2017-09-28] MEDS ORDERED: diltiaZEM 100 mg Vial ( ADD-VANTAGE ) IV ONE (13:29)
--- NOTE | 2017-09-28 15:33 | CP.PCM.PN ---
Subjective - Date & Time of Evaluation Date of Evaluation: 09/27/17 Time of Evaluation: 18:00 - Subjective Subjective: obtunded , on bipap s/p bronch yesterday on cardizem gtt for afib and IV BB given digoxin bolus Objective - Vital Signs/Intake and Output Vital Signs (last 24 hours): Temp Pulse Resp BP Pulse Ox 96.8 F L 106 H 28 H 153/86 H 94 L 09/28/17 12:00 09/28/17 15:16 09/28/17 12:00 09/28/17 12:00 09/28/17 12:00 Intake and Output: 09/28/17 09/28/17 06:59 18:59 Intake Total 740 790 Balance 740 790 - Medications Medications: Current Medications Acetylcysteine (Mucomyst 10% 4ml) 2 ml IH RBID [facility] Last Admin: 09/28/17 07:55 Dose: 2 ml Albuterol/Ipratropium (Duoneb 3 Mg/0.5 Mg (3 Ml) Ud) 3 ml INH RQ4 [facility] Last Admin: 09/28/17 15:15 Dose: 3 ml Calcium Carbonate (Oscal) 500 mg PO BIDWM [facility] Last Admin: 09/28/17 08:12 Dose: Not Given Ergocalciferol (Drisdol 50,000 Intl Units Cap) 1 cap PO Q7D [facility] Last Admin: 09/26/17 01:20 Dose: Not Given Famotidine (Pepcid) 20 mg IVP DAILY [facility] Last Admin: 09/28/17 09:20 Dose: 20 mg Furosemide (Lasix) 40 mg IV Q12 [facility] Last Admin: 09/28/17 09:52 Dose: 40 mg Vancomycin HCl 1 gm/ Sodium (Chloride) 250 mls @ 250 mls/hr IVPB DAILY [facility] PRN Reason: Protocol Last Admin: 09/28/17 08:12 Dose: 250 mls/hr Piperacillin Sod/Tazobactam (Sod 3.375 gm/ Sodium Chloride) 100 mls @ 100 mls/ hr IVPB Q6 [facility] PRN Reason: Protocol Last Admin: 09/28/17 10:04 Dose: 100 mls/hr Dextrose (Dextrose 5% In Water) 500 mls @ 50 mls/hr IV .Q10H [facility] Stop: 09/29/17 07:15 Last Admin: 09/28/17 10:00 Dose: 50 mls/hr Diltiazem HCl 100 mg/ Sodium (Chloride) 100 mls @ 12.5 mls/hr IV .Q8H [facility]I; 12.5 MG/HR PRN Reason: Protocol Last Admin: 09/28/17 13:15 Dose: 12.5 mls/hr Lamotrigine (Lamictal) 25 mg PO BID [facility] Last Admin: 09/28/17 08:12 Dose: Not Given Lorazepam (Ativan) 2 mg IVP Q6 PRN PRN Reason: SEIZURES Metoprolol Tartrate (Lopressor) 2.5 mg IVP Q6 [facility] Last Admin: 09/28/17 09:20 Dose: 2.5 mg - Labs Labs: 09/28/17 05:30 09/28/17 05:30 PT 77.7 Seconds (9.8-13.1) H* D 09/27/17 16:42 INR 6.6 (0.9-1.2) H D 09/27/17 16:42 APTT 68.0 Seconds (25.6-37.1) H D 09/23/17 09:57 - Constitutional Appears: Toxic - Additional Findings Additional findings: Obtunded on bipap bilateral chest tubes draining HEENT: anicter, DONNA, MM dry Neck: supple, +ve JVP Lungs: bilateral basal rales, decreased BS in right base Heart: tachycardic, irregular, nlS1S2, +ve right sided S3 Abdomen: soft, NT, ND Ext: 1+ b/l LE edema Assessment and Plan (1) Acute respiratory failure with hypoxia Status: Acute (2) Altered mental status Status: Acute (3) A-fib Status: Chronic (4) Acute on chronic diastolic (congestive) heart failure Status: Chronic (5) HTN (hypertension) Status: Chronic (6) Seizure disorder Status: Chronic (7) CANDELARIA (acute kidney injury) Status: Acute (8) Collapse of left lung Status: Acute (9) Encephalopathy Status: Acute (10) Hypothermia Status: Acute (11) Pleural effusion, bilateral Status: Acute (12) Supratherapeutic international normalized ratio (INR) Status: Acute (13) Atrial fibrillation with RVR Status: Acute
--- NOTE | 2017-09-28 15:36 | CP.PCM.PN ---
Subjective - Date & Time of Evaluation Date of Evaluation: 09/28/17 Time of Evaluation: 15:36 - Subjective Subjective: still obtunded HR uncontrolled on cardizem gtt and bb Objective - Vital Signs/Intake and Output Vital Signs (last 24 hours): Temp Pulse Resp BP Pulse Ox 96.8 F L 106 H 28 H 153/86 H 94 L 09/28/17 12:00 09/28/17 15:16 09/28/17 12:00 09/28/17 12:00 09/28/17 12:00 Intake and Output: 09/28/17 09/28/17 06:59 18:59 Intake Total 740 790 Balance 740 790 - Medications Medications: Current Medications Acetylcysteine (Mucomyst 10% 4ml) 2 ml IH RBID [facility] Last Admin: 09/28/17 07:55 Dose: 2 ml Albuterol/Ipratropium (Duoneb 3 Mg/0.5 Mg (3 Ml) Ud) 3 ml INH RQ4 [facility] Last Admin: 09/28/17 15:15 Dose: 3 ml Calcium Carbonate (Oscal) 500 mg PO BIDWM [facility] Last Admin: 09/28/17 08:12 Dose: Not Given Ergocalciferol (Drisdol 50,000 Intl Units Cap) 1 cap PO Q7D [facility] Last Admin: 09/26/17 01:20 Dose: Not Given Famotidine (Pepcid) 20 mg IVP DAILY [facility] Last Admin: 09/28/17 09:20 Dose: 20 mg Furosemide (Lasix) 40 mg IV Q12 [facility] Last Admin: 09/28/17 09:52 Dose: 40 mg Vancomycin HCl 1 gm/ Sodium (Chloride) 250 mls @ 250 mls/hr IVPB DAILY [facility] PRN Reason: Protocol Last Admin: 09/28/17 08:12 Dose: 250 mls/hr Piperacillin Sod/Tazobactam (Sod 3.375 gm/ Sodium Chloride) 100 mls @ 100 mls/ hr IVPB Q6 [facility] PRN Reason: Protocol Last Admin: 09/28/17 10:04 Dose: 100 mls/hr Dextrose (Dextrose 5% In Water) 500 mls @ 50 mls/hr IV .Q10H [facility] Stop: 09/29/17 07:15 Last Admin: 09/28/17 10:00 Dose: 50 mls/hr Diltiazem HCl 100 mg/ Sodium (Chloride) 100 mls @ 12.5 mls/hr IV .Q8H [facility]; 12.5 MG/HR PRN Reason: Protocol Last Admin: 09/28/17 13:15 Dose: 12.5 mls/hr Lamotrigine (Lamictal) 25 mg PO BID [facility] Last Admin: 09/28/17 08:12 Dose: Not Given Lorazepam (Ativan) 2 mg IVP Q6 PRN PRN Reason: SEIZURES Metoprolol Tartrate (Lopressor) 2.5 mg IVP Q6 [facility] Last Admin: 09/28/17 09:20 Dose: 2.5 mg - Labs Labs: 09/28/17 05:30 09/28/17 05:30 PT 77.7 Seconds (9.8-13.1) H* D 09/27/17 16:42 INR 6.6 (0.9-1.2) H D 09/27/17 16:42 APTT 68.0 Seconds (25.6-37.1) H D 09/23/17 09:57 - Constitutional Appears: Toxic - Head Exam Head Exam: ATRAUMATIC - Eye Exam Eye Exam: PERRL - ENT Exam ENT Exam: Mucous Membranes Dry - Neck Exam Neck Exam: Normal Inspection - Respiratory Exam Respiratory Exam: Rales, Rhonchi - Cardiovascular Exam Cardiovascular Exam: Tachycardia, Irregular Rhythm, +S1, +S2, Murmur - GI/Abdominal Exam GI & Abdominal Exam: Soft - Extremities Exam Extremities Exam: Pedal Edema - Neurological Exam Neurological Exam: Altered Assessment and Plan (1) Acute respiratory failure with hypoxia Status: Acute (2) Altered mental status Status: Acute (3) A-fib Status: Chronic (4) Acute on chronic diastolic (congestive) heart failure Status: Chronic (5) HTN (hypertension) Status: Chronic (6) Seizure disorder Status: Chronic (7) CANDELARIA (acute kidney injury) Status: Acute (8) Encephalopathy Status: Acute (9) Hypothermia Status: Acute (10) Pleural effusion, bilateral Status: Acute (11) Supratherapeutic international normalized ratio (INR) Status: Acute (12) Acute decompensated heart failure Status: Acute (13) Atrial fibrillation with RVR Status: Acute
[2017-09-28] MEDS ORDERED: Amiodarone 150mg/3 ml vial ONE (15:42)
--- NOTE | 2017-09-28 15:43 | CP.CCUPN ---
CCU Objective - Vital Signs / Intake & Output Vital Signs (Last 4 hours): Vital Signs Temp Pulse Resp BP Pulse Ox 09/28/17 15:16 106 H 09/28/17 12:00 96.8 F L 110 H 28 H 153/86 H 94 L Intake and Output (Last 8hrs): Intake & Output 09/28/17 09/28/17 09/28/17 06:59 14:59 22:59 Intake Total 460 790 Balance 460 790 Intake: IV 360 440 Intake, Piggyback 100 350 Other: # Voids Urine, Voided 4 # Bowel Movements 1 - Physical Exam Head: Positive for: Atraumatic, Normocephalic Pupils: Positive for: PERRL, Sluggish Extroacular Muscles: Positive for: EOMI Conjunctiva: Positive for: Normal. Negative for: Icteric Ears: Positive for: Normal Mouth: Positive for: Moist Mucous Membranes Pharnyx: Negative for: ERYTHEMA Neck: Positive for: Normal Range of Motion. Negative for: JVD Respiratory/Chest: Positive for: Decreased Breath Sounds, Rhonchi (upper airway rhonchi), Tachypneic. Negative for: Accessory Muscle Use, Wheezes Cardiovascular: Positive for: Irregular Rhythm, Peripheal Pulses Present. Negative for: Murmurs, Normal S1, S2, Tachycardic, Bradycardic Abdomen: Positive for: Normal Bowel Sounds. Negative for: Tenderness, Distention, Peritoneal Signs Upper Extremity: Positive for: Edema Lower Extremity: Positive for: Edema, NORMAL PULSES. Negative for: CALF TENDERNESS, Cyanosis Neurological: Positive for: Other (withdraws to deep pain) Skin: Positive for: Warm. Negative for: Rashes Psychiatric: Positive for: Lethargic - Medications Active Medications: Active Medications Generic Name Dose Route Start Last Admin Trade Name Freq PRN Reason Stop Dose Admin Acetylcysteine 2 ml 09/26/17 20:00 09/28/17 07:55 Mucomyst 10% 4ml IH 2 ml RBID [facility] Administration Albuterol/Ipratropium 3 ml 09/28/17 12:00 09/28/17 15:15 Duoneb 3 Mg/0.5 Mg (3 Ml) Ud INH 3 ml RQ4 [facility] Administration Calcium Carbonate 500 mg 09/26/17 08:00 09/28/17 08:12 Oscal PO Not Given BIDWM [facility] Ergocalciferol 1 cap 09/25/17 23:45 09/26/17 01:20 Drisdol 50,000 Intl Units Cap PO Not Given Q7D [facility] Famotidine 20 mg 09/25/17 09:00 09/28/17 09:20 Pepcid IVP 20 mg DAILY [facility] Administration Furosemide 40 mg 09/28/17 12:00 09/28/17 09:52 Lasix IV 40 mg Q12 [facility] Administration Heparin Sodium (Porcine) 5,000 units 09/28/17 21:00 Heparin SC Q12 [facility] Protocol Vancomycin HCl 1 gm/ Sodium 250 mls @ 250 mls/hr 09/23/17 17:44 09/28/17 08: 12 Chloride IVPB 250 mls/hr DAILY [facility] Administration Protocol Piperacillin Sod/Tazobactam 100 mls @ 100 mls/hr 09/25/17 16:00 09/28/17 10: 04 Sod 3.375 gm/ Sodium Chloride IVPB 100 mls/hr Q6 [facility] Administration Protocol Dextrose 500 mls @ 50 mls/hr 09/28/17 11:49 09/28/17 10:00 Dextrose 5% In Water IV 09/29/17 07:15 50 mls/hr .Q10H [facility] Administration Diltiazem HCl 100 mg/ Sodium 100 mls @ 12.5 mls/hr 09/28/17 12:15 09/28/17 13 :15 Chloride IV 12.5 mls/hr .Q8H [facility] Administration Protocol 12.5 MG/HR Amiodarone HCl 150 mg/ 103 mls @ 618 mls/hr 09/28/17 15:36 Dextrose IVPB 09/28/17 15:45 ONCE ONE Protocol 15 MG/MIN Amiodarone HCl 900 mg/ 518 mls @ 34.53 mls/hr 09/28/17 15:48 Dextrose IVPB .Q15H1M [facility] Protocol 1 MG/MIN Lamotrigine 25 mg 09/23/17 18:15 09/28/17 08:12 Lamictal PO Not Given BID [facility] Lorazepam 2 mg 09/25/17 04:00 Ativan IVP Q6 PRN SEIZURES Metoprolol Tartrate 2.5 mg 09/27/17 10:00 09/28/17 09:20 Lopressor IVP 2.5 mg Q6 [facility] Administration - Patient Studies Lab Studies: Microbiology Studies 09/26/17 14:00 Gram Stain - Final Trachasp Sputum Culture - Final NORMAL ORAL OTONIEL 09/24/17 18:00 Gram Stain - Final Body Fluid - Chest Body Fluid Culture - Preliminary No growth. 09/23/17 08:15 Blood Culture - Final Blood NO GROWTH AFTER 5 DAYS Gram Stain - Final TEST NOT PERFORMED 09/23/17 08:00 Blood Culture - Final Blood NO GROWTH AFTER 5 DAYS Gram Stain - Final TEST NOT PERFORMED Lab Studies 09/28/17 09/28/17 09/28/17 Range/Units 07:42 05:30 05:30 WBC 9.4 (4.8-10.8) K/uL RBC 4.75 (4.40-5.90) Mil/uL Hgb 13.8 (12.0-18.0) g/dL Hct 42.8 (35.0-51.0) % MCV 90.1 (80.0-94.0) fl MCH 29.0 (27.0-31.0) pg MCHC 32.1 L (33.0-37.0) g/dL RDW 19.4 H (11.5-14.5) % Plt Count 171 (130-400) K/uL PT (9.8-13.1) Seconds INR (0.9-1.2) pCO2 58 H (35-45) mm/Hg pO2 78 L (80-100) mm/Hg HCO3 27.9 (21-28) mmol/L ABG pH 7.34 L (7.35-7.45) ABG Total CO2 33.1 H (22-28) mmol/L ABG O2 Saturation 96.4 (95-98) % ABG O2 Content 17.3 (15-23) ML/dL ABG Base Excess 4.0 H (-2.0-3.0) mmol/L ABG Hemoglobin 13.1 (11.7-17.4) g/dL ABG Carboxyhemoglobin 1.9 H (0.5-1.5) % POC ABG HHb (Measured) 3.5 (0.0-5.0) % ABG Methemoglobin 1.1 (0.0-3.0) % ABG O2 Capacity 17.9 (16-24) mL/dL Broderick Test Yes A-a O2 Difference 563.0 mm/Hg Hgb O2 Saturation 93.5 L (95.0-98.0) % FiO2 100.0 % Sodium 156 H (132-148) mmol/l Potassium 4.3 (3.6-5.0) MMOL/L Chloride 114 H (98-107) mmol/L Carbon Dioxide 33 H (22-30) mmol/L Anion Gap 13 (10-20) BUN 54 H (9-20) mg/dl Creatinine 1.9 H (0.8-1.5) mg/dl Est GFR ( Amer) 42 Est GFR (Non-Af Amer) 34 Random Glucose 143 H (75-110) mg/dL Calcium 9.5 (8.4-10.2) mg/dL Total Bilirubin 1.9 H (0.2-1.3) mg/dl AST 34 (17-59) U/L ALT 33 (21-72) U/L Alkaline Phosphatase 93 (38-126) U/L Total Protein 7.0 (6.3-8.2) G/DL Albumin 3.3 L (3.5-5.0) g/dL Globulin 3.7 (2.2-3.9) gm/dL Albumin/Globulin Ratio 0.9 L (1.0-2.1) 09/27/17 Range/Units 16:42 WBC (4.8-10.8) K/uL RBC (4.40-5.90) Mil/uL Hgb (12.0-18.0) g/dL Hct (35.0-51.0) % MCV (80.0-94.0) fl MCH (27.0-31.0) pg MCHC (33.0-37.0) g/dL RDW (11.5-14.5) % Plt Count (130-400) K/uL PT 77.7 H* D (9.8-13.1) Seconds INR 6.6 H D (0.9-1.2) pCO2 (35-45) mm/Hg pO2 (80-100) mm/Hg HCO3 (21-28) mmol/L ABG pH (7.35-7.45) ABG Total CO2 (22-28) mmol/L ABG O2 Saturation (95-98) % ABG O2 Content (15-23) ML/dL ABG Base Excess (-2.0-3.0) mmol/L ABG Hemoglobin (11.7-17.4) g/dL ABG Carboxyhemoglobin (0.5-1.5) % POC ABG HHb (Measured) (0.0-5.0) % ABG Methemoglobin (0.0-3.0) % ABG O2 Capacity (16-24) mL/dL Broderick Test A-a O2 Difference mm/Hg Hgb O2 Saturation (95.0-98.0) % FiO2 % Sodium (132-148) mmol/l Potassium (3.6-5.0) MMOL/L Chloride (98-107) mmol/L Carbon Dioxide (22-30) mmol/L Anion Gap (10-20) BUN (9-20) mg/dl Creatinine (0.8-1.5) mg/dl Est GFR ( Amer) Est GFR (Non-Af Amer) Random Glucose (75-110) mg/dL Calcium (8.4-10.2) mg/dL Total Bilirubin (0.2-1.3) mg/dl AST (17-59) U/L ALT (21-72) U/L Alkaline Phosphatase (38-126) U/L Total Protein (6.3-8.2) G/DL Albumin (3.5-5.0) g/dL Globulin (2.2-3.9) gm/dL Albumin/Globulin Ratio (1.0-2.1) Laboratory Results - last 24 hr 09/27/17 09/28/17 09/28/17 16:42 05:30 05:30 WBC 9.4 RBC 4.75 Hgb 13.8 Hct 42.8 MCV 90.1 MCH 29.0 MCHC 32.1 L RDW 19.4 H Plt Count 171 PT 77.7 H* D INR 6.6 H D pCO2 pO2 HCO3 ABG pH ABG Total CO2 ABG O2 Saturation ABG O2 Content ABG Base Excess ABG Hemoglobin ABG Carboxyhemoglobin POC ABG HHb (Measured) ABG Methemoglobin ABG O2 Capacity Broderick Test A-a O2 Difference Hgb O2 Saturation FiO2 Sodium 156 H Potassium 4.3 Chloride 114 H Carbon Dioxide 33 H Anion Gap 13 BUN 54 H Creatinine 1.9 H Est GFR ( Amer) 42 Est GFR (Non-Af Amer) 34 Random Glucose 143 H Calcium 9.5 Total Bilirubin 1.9 H AST 34 ALT 33 Alkaline Phosphatase 93 Total Protein 7.0 Albumin 3.3 L Globulin 3.7 Albumin/Globulin Ratio 0.9 L 09/28/17 07:42 WBC RBC Hgb Hct MCV MCH MCHC RDW Plt Count PT INR pCO2 58 H pO2 78 L HCO3 27.9 ABG pH 7.34 L ABG Total CO2 33.1 H ABG O2 Saturation 96.4 ABG O2 Content 17.3 ABG Base Excess 4.0 H ABG Hemoglobin 13.1 ABG Carboxyhemoglobin 1.9 H POC ABG HHb (Measured) 3.5 ABG Methemoglobin 1.1 ABG O2 Capacity 17.9 Broderick Test Yes A-a O2 Difference 563.0 Hgb O2 Saturation 93.5 L FiO2 100.0 Sodium Potassium Chloride Carbon Dioxide Anion Gap BUN Creatinine Est GFR ( Amer) Est GFR (Non-Af Amer) Random Glucose Calcium Total Bilirubin AST ALT Alkaline Phosphatase Total Protein Albumin Globulin Albumin/Globulin Ratio Fingerstick Blood Sugar Results: 83 Assessment/Plan (1) Acute respiratory failure Assessment and plan: 77yo M. PMHx CKD stage 3, afib, PPM, HTN, CVA, seizure disorder, BPH. p/w recurrent acute respiratory failure. Neuro: alert and following commands, seizures controlled with lamotrigine. Pulm: acute on chronic respiratory failure, secondary to pulmonary edema. now chronically on BIPAP. Duonebs q4h. Patient may need a chest tube, but placement is difficult given high INR, will transfuse FFP to lower INR. Patient is also a very high risk for any procedure. CV: hemodynamically stable. Echo shows no signs of valvular disease or heart failure. Possible heart failure with preserved ejection fraction. Afib rate controlled with lopressor IV q6h. Hem: no acute issues. Renal: diuresing with lasix 40mg IV q12h. Endo: No acute issues GI: NPO while on BIPAP ID: possible underlying pneumonia, continue Vancomycin and Zosyn. Should consider stopping. DVT proph - heparin sq GI proph - pepcid ko for strict I/O's during acute illness Code status - DNI only Current Visit: Yes Status: Acute Priority: High
[2017-09-28 16:47] LABS: ABG ALLEN TEST YES; ARTERIAL BLOOD GAS HCO3 26.1 mmol/L (21-28); ARTERIAL BLOOD GAS HEMOGLOBIN 12.9 g/dL (11.7-17.4); ARTERIAL BLOOD GAS O2 CAPACITY 17.6 mL/dL (16-24); ARTERIAL BLOOD GAS O2 CONTENT 13.5 ML/dL (15-23); ARTERIAL BLOOD GAS O2 SAT 76.5 % (95-98); ARTERIAL BLOOD GAS PCO2 79 mm/Hg (35-45); ARTERIAL BLOOD GAS PH 7.22 (7.35-7.45); ARTERIAL BLOOD GAS PO2 44 mm/Hg (80-100); ARTERIAL BLOOD GAS TCO2 34.7 mmol/L (22-28)
[2017-09-28] MEDS ORDERED: Phytonadione 10 mg/ml Inj (Adult) IV ONE (20:42)
--- NOTE | 2017-09-28 22:36 | CP.PCM.PN ---
Subjective - Date & Time of Evaluation Date of Evaluation: 09/28/17 Time of Evaluation: 11:00 - Subjective Subjective: F/U Respiratory Failure Pt obtunded, on BIPAP. Objective - Vital Signs/Intake and Output Vital Signs (last 24 hours): Temp Pulse Resp BP Pulse Ox 97.2 F L 90 32 H 149/72 94 L 09/28/17 16:00 09/28/17 20:40 09/28/17 18:00 09/28/17 21:07 09/28/17 18:00 Intake and Output: 09/28/17 09/29/17 18:59 06:59 Intake Total 1593 Balance 1593 - Medications Medications: Current Medications Acetylcysteine (Mucomyst 10% 4ml) 2 ml IH RBID [facility] Last Admin: 09/28/17 19:39 Dose: 2 ml Albuterol/Ipratropium (Duoneb 3 Mg/0.5 Mg (3 Ml) Ud) 3 ml INH RQ4 [facility] Last Admin: 09/28/17 19:40 Dose: 3 ml Calcium Carbonate (Oscal) 500 mg PO BIDWM [facility] Last Admin: 09/28/17 16:53 Dose: Not Given Ergocalciferol (Drisdol 50,000 Intl Units Cap) 1 cap PO Q7D [facility] Last Admin: 09/26/17 01:20 Dose: Not Given Famotidine (Pepcid) 20 mg IVP DAILY [facility] Last Admin: 09/28/17 09:20 Dose: 20 mg Furosemide (Lasix) 40 mg IV Q12 [facility] Last Admin: 09/28/17 20:55 Dose: 40 mg Heparin Sodium (Porcine) (Heparin) 5,000 units SC Q12 [facility] PRN Reason: Protocol Vancomycin HCl 1 gm/ Sodium (Chloride) 250 mls @ 250 mls/hr IVPB DAILY [facility] PRN Reason: Protocol Last Admin: 09/28/17 08:12 Dose: 250 mls/hr Piperacillin Sod/Tazobactam (Sod 3.375 gm/ Sodium Chloride) 100 mls @ 100 mls/ hr IVPB Q6 [facility]I PRN Reason: Protocol Last Admin: 09/28/17 18:05 Dose: 100 mls/hr Dextrose (Dextrose 5% In Water) 500 mls @ 50 mls/hr IV .Q10H [facility] Stop: 09/29/17 07:15 Last Admin: 09/28/17 10:00 Dose: 50 mls/hr Diltiazem HCl 100 mg/ Sodium (Chloride) 100 mls @ 12.5 mls/hr IV .Q8H [facility]I; 12.5 MG/HR PRN Reason: Protocol Last Admin: 09/28/17 13:15 Dose: 12.5 mls/hr Amiodarone HCl 450 mg/ (Dextrose) 259 mls @ 34.53 mls/hr IVPB .Q7H31M [facility]I; 1 MG /MIN PRN Reason: Protocol Last Admin: 09/28/17 20:40 Dose: 16.7 mls/hr Lamotrigine (Lamictal) 25 mg PO BID [facility] Last Admin: 09/28/17 16:53 Dose: Not Given Lorazepam (Ativan) 2 mg IVP Q6 PRN PRN Reason: SEIZURES Metoprolol Tartrate (Lopressor) 2.5 mg IVP Q6 [facility] Last Admin: 09/28/17 16:52 Dose: 2.5 mg - Labs Labs: 09/28/17 05:30 09/28/17 05:30 PT 77.7 Seconds (9.8-13.1) H* D 09/27/17 16:42 INR 6.6 (0.9-1.2) H D 09/27/17 16:42 APTT 68.0 Seconds (25.6-37.1) H D 09/23/17 09:57 - Constitutional Appears: Chronically Ill - Head Exam Head Exam: NORMAL INSPECTION - Eye Exam Eye Exam: PERRL - ENT Exam ENT Exam: Normal Exam - Neck Exam Neck Exam: Normal Inspection - Respiratory Exam Respiratory Exam: Decreased Breath Sounds (b/l R>L), Rhonchi (R lung) Additional comments: R Pigtail - Cardiovascular Exam Cardiovascular Exam: Irregular Rhythm - Extremities Exam Additional comments: Edema BLE - Neurological Exam Additional comments: Obtunded, generalized weakness. - Skin Skin Exam: Warm Assessment and Plan (1) Acute respiratory failure with hypoxia Status: Acute (2) Aspiration pneumonia Status: Acute (3) Altered mental status Status: Acute (4) Diastolic CHF, acute on chronic Status: Acute (5) Pleural effusion, bilateral Status: Acute (6) Hx of seizure disorder Status: Chronic (7) A-fib Status: Chronic (8) CANDELARIA (acute kidney injury) Status: Acute (9) HTN (hypertension) Status: Chronic - Assessment and Plan (Free Text) Plan: Transfuse 2 U FFP, Sat low in the 90's, continue BIPAP, Lasix, on Amiodarone by [employer] Balancing Technician, if Sat drop below 90 may need intubation, for Bronchoscopy in AM. ICU Time: 36 min.
[2017-09-28] MEDS ORDERED: Sodium Chloride 0.9% 500 ML IV ONE (22:39)
--- NOTE | 2017-09-28 22:39 | PCM.PROC ---
Procedures Attestation:: I certify that I have explained the specified Operation(s) or Procedure(s), risks, benefits and reasonable alternatives to the Patient and/or other person responsible. The opportunity was given to ask questions and all questions answered - Intubation Time Out Performed: Yes Sedative: None Laryngoscope: Binh ET Tube Size: 9 ET Tube Uncuffed: No ET Tube Secured Locarion: Lips ET Tube Placement Confirmation: Visualized Passing Through Cords, Breath Sounds Equal Bilaterally, No Breath Sounds Over Epigastrum, Confirmation w/Capnometry Patient Tolerated Procedure: Well Procedure Immediate Complications: Hypotension
[2017-09-28 23:55] LABS: ABG ALLEN TEST YES; ARTERIAL BLOOD GAS HCO3 27.3 mmol/L (21-28); ARTERIAL BLOOD GAS HEMOGLOBIN 10.7 g/dL (11.7-17.4); ARTERIAL BLOOD GAS O2 CAPACITY 14.7 mL/dL (16-24); ARTERIAL BLOOD GAS O2 CONTENT 13.6 ML/dL (15-23); ARTERIAL BLOOD GAS O2 SAT 92.6 % (95-98); ARTERIAL BLOOD GAS PCO2 59 mm/Hg (35-45); ARTERIAL BLOOD GAS PH 7.32 (7.35-7.45); ARTERIAL BLOOD GAS PO2 55 mm/Hg (80-100); ARTERIAL BLOOD GAS TCO2 32.2 mmol/L (22-28)
--- NOTE | 2017-09-29 | CP.PCM.PN ---
Subjective - Date & Time of Evaluation Date of Evaluation: 09/28/17 Time of Evaluation: 21:00 - Subjective Subjective: ET tube is placed, patient is not doing well. He has respiratory problems. No Seizures. Objective - Vital Signs/Intake and Output Vital Signs (last 24 hours): Temp Pulse Resp BP Pulse Ox 97.2 F L 90 32 H 88/53 L 94 L 09/28/17 16:00 09/28/17 23:40 09/28/17 18:00 09/28/17 22:15 09/28/17 18:00 Intake and Output: 09/28/17 09/29/17 18:59 06:59 Intake Total 1593 Balance 1593 - Medications Medications: Current Medications Acetylcysteine (Mucomyst 10% 4ml) 2 ml IH RBID [facility] Last Admin: 09/28/17 19:39 Dose: 2 ml Albuterol/Ipratropium (Duoneb 3 Mg/0.5 Mg (3 Ml) Ud) 3 ml INH RQ4 [facility] Last Admin: 09/28/17 23:22 Dose: 3 ml Calcium Carbonate (Oscal) 500 mg PO BIDWM [facility] Last Admin: 09/28/17 16:53 Dose: Not Given Ergocalciferol (Drisdol 50,000 Intl Units Cap) 1 cap PO Q7D [facility] Last Admin: 09/26/17 01:20 Dose: Not Given Famotidine (Pepcid) 20 mg IVP DAILY [facility] Last Admin: 09/28/17 09:20 Dose: 20 mg Furosemide (Lasix) 40 mg IV Q12 [facility] Last Admin: 09/28/17 20:55 Dose: 40 mg Heparin Sodium (Porcine) (Heparin) 5,000 units SC Q12 [facility]I PRN Reason: Protocol Last Admin: 09/28/17 21:00 Dose: Not Given Vancomycin HCl 1 gm/ Sodium (Chloride) 250 mls @ 250 mls/hr IVPB DAILY [facility] PRN Reason: Protocol Last Admin: 09/28/17 08:12 Dose: 250 mls/hr Piperacillin Sod/Tazobactam (Sod 3.375 gm/ Sodium Chloride) 100 mls @ 100 mls/ hr IVPB Q6 YUKI PRN Reason: Protocol Last Admin: 09/28/17 23:30 Dose: 100 mls/hr Dextrose (Dextrose 5% In Water) 500 mls @ 50 mls/hr IV .Q10H YUKI Stop: 09/29/17 07:15 Last Admin: 09/28/17 10:00 Dose: 50 mls/hr Amiodarone HCl 450 mg/ (Dextrose) 259 mls @ 34.53 mls/hr IVPB .Q7H31M YUKI; 1 MG /MIN PRN Reason: Protocol Last Admin: 09/28/17 23:40 Dose: 16.7 mls/hr Lamotrigine (Lamictal) 25 mg PO BID YUKI Last Admin: 09/28/17 16:53 Dose: Not Given Lorazepam (Ativan) 2 mg IVP Q6 PRN PRN Reason: SEIZURES Metoprolol Tartrate (Lopressor) 2.5 mg IVP Q6 YUKI Last Admin: 09/28/17 22:15 Dose: Not Given - Labs Labs: 09/28/17 05:30 09/28/17 05:30 PT 77.7 Seconds (9.8-13.1) H* D 09/27/17 16:42 INR 6.6 (0.9-1.2) H D 09/27/17 16:42 APTT 68.0 Seconds (25.6-37.1) H D 09/23/17 09:57 Assessment and Plan (1) CANDELARIA (acute kidney injury) Status: Acute (2) Acute respiratory failure Status: Acute (3) Altered mental status Status: Acute (4) Hypothermia Status: Acute (5) Pleural effusion, bilateral Status: Acute (6) Pneumonia Status: Acute (7) Seizure disorder Status: Suspected (8) Encephalopathy Status: Acute
--- NOTE | 2017-09-29 00:54 | CP.PCM.PN ---
Subjective - Date & Time of Evaluation Date of Evaluation: 09/29/17 Time of Evaluation: 00:50 - Subjective Subjective: I saw the patient and talked to the . I recommend to place a gastric tube to help administering his Oral Medicine and possible feeding once the Patient is medically cleared to have a Procedure of Gastric Tube Placement. CXR is seen and shows bilateral chest tube and a cardiac pacemaker and a poor lung condition including Pneumonia and Pleural effusion. Condition is very guarded and he needs lots of help. Objective - Vital Signs/Intake and Output Vital Signs (last 24 hours): Temp Pulse Resp BP Pulse Ox 97.2 F L 90 32 H 88/53 L 94 L 09/28/17 16:00 09/28/17 23:40 09/28/17 18:00 09/28/17 22:15 09/28/17 18:00 Intake and Output: 09/28/17 09/29/17 18:59 06:59 Intake Total 1593 Balance 1593 - Medications Medications: Current Medications Acetylcysteine (Mucomyst 10% 4ml) 2 ml IH RBID [facility] Last Admin: 09/28/17 19:39 Dose: 2 ml Albuterol/Ipratropium (Duoneb 3 Mg/0.5 Mg (3 Ml) Ud) 3 ml INH RQ4 [facility] Last Admin: 09/28/17 23:22 Dose: 3 ml Calcium Carbonate (Oscal) 500 mg PO BIDWM [facility] Last Admin: 09/28/17 16:53 Dose: Not Given Ergocalciferol (Drisdol 50,000 Intl Units Cap) 1 cap PO Q7D [facility] Last Admin: 09/26/17 01:20 Dose: Not Given Famotidine (Pepcid) 20 mg IVP DAILY [facility] Last Admin: 09/28/17 09:20 Dose: 20 mg Furosemide (Lasix) 40 mg IV Q12 [facility] Last Admin: 09/28/17 20:55 Dose: 40 mg Heparin Sodium (Porcine) (Heparin) 5,000 units SC Q12 [facility] PRN Reason: Protocol Last Admin: 09/28/17 21:00 Dose: Not Given Vancomycin HCl 1 gm/ Sodium (Chloride) 250 mls @ 250 mls/hr IVPB DAILY [facility] PRN Reason: Protocol Last Admin: 09/28/17 08:12 Dose: 250 mls/hr Piperacillin Sod/Tazobactam (Sod 3.375 gm/ Sodium Chloride) 100 mls @ 100 mls/ hr IVPB Q6 [facility] PRN Reason: Protocol Last Admin: 09/28/17 23:30 Dose: 100 mls/hr Dextrose (Dextrose 5% In Water) 500 mls @ 50 mls/hr IV .Q10H [facility] Stop: 09/29/17 07:15 Last Admin: 09/28/17 10:00 Dose: 50 mls/hr Amiodarone HCl 450 mg/ (Dextrose) 259 mls @ 34.53 mls/hr IVPB .Q7H31M [facility]; 1 MG /MIN PRN Reason: Protocol Last Admin: 09/28/17 23:40 Dose: 16.7 mls/hr Lamotrigine (Lamictal) 25 mg PO BID [facility] Last Admin: 09/28/17 16:53 Dose: Not Given Lorazepam (Ativan) 2 mg IVP Q6 PRN PRN Reason: SEIZURES Metoprolol Tartrate (Lopressor) 2.5 mg IVP Q6 [facility] Last Admin: 09/28/17 22:15 Dose: Not Given - Labs Labs: 09/28/17 05:30 09/28/17 05:30 PT 77.7 Seconds (9.8-13.1) H* D 09/27/17 16:42 INR 6.6 (0.9-1.2) H D 09/27/17 16:42 APTT 68.0 Seconds (25.6-37.1) H D 09/23/17 09:57 Assessment and Plan (1) CANDELARIA (acute kidney injury) Status: Acute (2) Acute respiratory failure Status: Acute (3) Altered mental status Status: Acute (4) Hypothermia Status: Acute (5) Pleural effusion, bilateral Status: Acute (6) Pneumonia Status: Acute (7) Seizure disorder Status: Suspected (8) Encephalopathy Status: Acute
[2017-09-29] MEDS: Piperacillin/Tazobact 3.375 GM in Sodium Chloride 0.9% 100 ML IVPB SCH ×2 (03:28→10:25)
[2017-09-29] MEDS: Albuterol-Ipratrop 3 mg / 0.5 (3 ml) UD INH SCH ×5 (03:59→19:34)
[2017-09-29 04:23] LABS: ABG ALLEN TEST YES; ARTERIAL BLOOD GAS HEMOGLOBIN 10.5 g/dL (11.7-17.4); ARTERIAL BLOOD GAS O2 CAPACITY 14.4 mL/dL (16-24); ARTERIAL BLOOD GAS O2 CONTENT 13.9 ML/dL (15-23); ARTERIAL BLOOD GAS O2 SAT 96.7 % (95-98); ARTERIAL BLOOD GAS PCO2 43 mm/Hg (35-45); ARTERIAL BLOOD GAS PH 7.45 (7.35-7.45); ARTERIAL BLOOD GAS PO2 69 mm/Hg (80-100); ARTERIAL BLOOD GAS TCO2 31.2 mmol/L (22-28)
[2017-09-29 06:14] LABS: HEMOGLOBIN 10.5 g/dL (12.0-18.0); MEAN CELL VOLUME 91.9 fl (80.0-94.0); MEAN CORPUSCULAR HEMOGLOBIN 28.1 pg (27.0-31.0); MEAN CORPUSCULAR HGB CONC 30.6 g/dL (33.0-37.0); RBC 3.73 Mil/uL (4.40-5.90); WHITE BLOOD COUNT 15.9 K/uL (4.8-10.8)
[2017-09-29 06:38] LABS: PROTHROMBIN TIME 23.1 Seconds (9.8-13.1)
[2017-09-29 06:39] LABS: PARTIAL THROMBOPLASTIN TIME 32.3 Seconds (25.6-37.1)
[2017-09-29 06:41] LABS: CALCIUM 8.5 mg/dL (8.4-10.2)
[2017-09-29] MEDS: Acetylcysteine 10% 4 ML IH SCH ×2 (08:19→19:34)
--- NOTE | 2017-09-29 08:23 | CP.PCM.PN ---
Subjective - Date & Time of Evaluation Date of Evaluation: 09/29/17 Time of Evaluation: 06:15 - Subjective Subjective: Thoracic Surgery- Dr. Rascon Patient seen and examined at bedside this AM. No acute events overnight. Patient currently saturating in the high 90s to 100%. Patient responsive to pain. Denies, fevers, chills, nausea, vomiting, diarrhea. No output from the Right. chest pigtail catheter. Objective - Vital Signs/Intake and Output Vital Signs (last 24 hours): Temp Pulse Resp BP Pulse Ox 98.2 F 112 H 22 95/49 L 100 09/29/17 04:00 09/29/17 07:00 09/29/17 07:00 09/29/17 07:00 09/29/17 07:00 Intake and Output: 09/29/17 09/29/17 06:59 18:59 Intake Total 1629 Output Total 952 Balance 677 - Medications Medications: Current Medications Acetylcysteine (Mucomyst 10% 4ml) 2 ml IH RBID [facility] Last Admin: 09/29/17 08:19 Dose: 2 ml Albuterol/Ipratropium (Duoneb 3 Mg/0.5 Mg (3 Ml) Ud) 3 ml INH RQ4 [facility] Last Admin: 09/29/17 08:20 Dose: 3 ml Calcium Carbonate (Oscal) 500 mg PO BIDWM [facility] Last Admin: 09/28/17 16:53 Dose: Not Given Ergocalciferol (Drisdol 50,000 Intl Units Cap) 1 cap PO Q7D [facility] Last Admin: 09/26/17 01:20 Dose: Not Given Famotidine (Pepcid) 20 mg IVP DAILY [facility] Last Admin: 09/28/17 09:20 Dose: 20 mg Furosemide (Lasix) 40 mg IV Q12 [facility] Last Admin: 09/28/17 20:55 Dose: 40 mg Heparin Sodium (Porcine) (Heparin) 5,000 units SC Q12 [facility] PRN Reason: Protocol Last Admin: 09/28/17 21:00 Dose: Not Given Vancomycin HCl 1 gm/ Sodium (Chloride) 250 mls @ 250 mls/hr IVPB DAILY [facility] PRN Reason: Protocol Last Admin: 09/28/17 08:12 Dose: 250 mls/hr Piperacillin Sod/Tazobactam (Sod 3.375 gm/ Sodium Chloride) 100 mls @ 100 mls/ hr IVPB Q6 [facility] PRN Reason: Protocol Last Admin: 09/29/17 03:28 Dose: 100 mls/hr Amiodarone HCl 450 mg/ (Dextrose) 259 mls @ 34.53 mls/hr IVPB .Q7H31M [facility]; 1 MG /MIN PRN Reason: Protocol Last Admin: 09/29/17 05:59 Dose: 34.53 mls/hr Lamotrigine (Lamictal) 25 mg PO BID [facility] Last Admin: 09/28/17 16:53 Dose: Not Given Lorazepam (Ativan) 2 mg IVP Q6 PRN PRN Reason: SEIZURES Metoprolol Tartrate (Lopressor) 2.5 mg IVP Q6 [facility] Last Admin: 09/28/17 22:15 Dose: Not Given - Labs Labs: 09/29/17 05:30 09/29/17 05:30 PT 23.1 Seconds (9.8-13.1) H D 09/29/17 05:30 INR 2.0 (0.9-1.2) H D 09/29/17 05:30 APTT 32.3 Seconds (25.6-37.1) 09/29/17 05:30 - Constitutional Appears: Non-toxic, Chronically Ill - Head Exam Head Exam: ATRAUMATIC - Eye Exam Eye Exam: EOMI. absent: Scleral icterus - ENT Exam ENT Exam: Mucous Membranes Moist - Respiratory Exam Respiratory Exam: NORMAL BREATHING PATTERN. absent: Accessory Muscle Use, Respiratory Distress - GI/Abdominal Exam GI & Abdominal Exam: Soft. absent: Distended, Firm, Guarding, Rigid, Tenderness - Extremities Exam Extremities Exam: Pedal Edema. absent: Calf Tenderness - Skin Skin Exam: Intact, Warm Assessment and Plan - Assessment and Plan (Free Text) Assessment: 77M w/ bilateral pleural effusions, s/p bilateral chest pigtail catheter placement left pigtail catheter out Plan: - plan for OR this week for bilateral chest tube placement w/ talc pleurodesis - optimize for surgery - continue medical management per ICU team - f/u labs - further recs per Dr. Tarah Choi PGY1
--- NOTE | 2017-09-29 08:37 | RAD ---
HISTORY: new intubation COMPARISON: Portable chest 09/28/2017 07:33 a.m.. FINDINGS: An endotracheal tube is now placed with its tip terminating a few cm above the apoorva. Cardiac pacemaker is unchanged in appearance. LUNGS: The right hemithorax is nearly completely opacified. Consider mucous plugging and postoperative atelectasis the worsening pneumonia is a possibility as well. PLEURA: A large right pleural effusion is not excluded. Trace left pleural effusion remains. No pneumothorax bilaterally. CARDIOVASCULAR: Cardiac silhouette is obscured likely remains enlarged. No definite pulmonary vascular derangement identified. OSSEOUS STRUCTURES: Ground-glass opacity upper and remain suspicious for gas-filled viscus with free air felt to be less likely in the peritoneal space. Follow-up abdomen CT is recommended if not already performed. VISUALIZED UPPER ABDOMEN: Gas seen distending the stomach in multiple large-bowel loops. Right hemidiaphragm appears likely elevated. OTHER FINDINGS: None. IMPRESSION: Endotracheal tube is now placed terminating at the lower trachea above the apoorva. New complete opacification of the hemithorax identified with questionable lifting of the diaphragms by gas-filled structure in the upper abdomen or, less likely, free air. Mild left infiltrate is unchanged at the left base with trace left pleural effusion. A large right pleural effusion not excluded in the interval.
[2017-09-29] MEDS: Metoprolol 1 mg/ml Inj IVP SCH ×3 (08:58→23:58)
--- NOTE | 2017-09-29 09:18 | RAD ---
HISTORY: follow up pleural effusion COMPARISON: Portable chest 09/28/2017 10:32 p.m.. . FINDINGS: LUNGS: Endotracheal tube is been retracted now terminating at the level of clavicles in the plane of the trachea. Consider advancing the endotracheal tube further 4-5 cm. There is improved aeration of the right lung however, particularly at the mid to superior right lung zone with persistent opacification of the bilateral bases. Unipolar pacemaker again noted.. PLEURA: Bilateral pleural effusions remain difficult to exclude, potentially moderate the right and mild at the left. No pneumothorax bilaterally. CARDIOVASCULAR: Cardiac silhouette remains obscured at the right side. OSSEOUS STRUCTURES: No significant abnormalities. VISUALIZED UPPER ABDOMEN: Normal. OTHER FINDINGS: None. IMPRESSION: Diminishing infiltrate right lung, unchanged at the medial left base. Bilateral pleural effusions remain difficult to exclude, moderate the right and mild at the left. ET tube has been retracted and advancement 4-5 cm antegrade is advised.
[2017-09-29 10:35] LABS: ABG ALLEN TEST YES; ARTERIAL BLOOD GAS HCO3 28.4 mmol/L (21-28); ARTERIAL BLOOD GAS HEMOGLOBIN 10.2 g/dL (11.7-17.4); ARTERIAL BLOOD GAS O2 CAPACITY 14.2 mL/dL (16-24); ARTERIAL BLOOD GAS O2 CONTENT 14.1 ML/dL (15-23); ARTERIAL BLOOD GAS O2 SAT 99.1 % (95-98); ARTERIAL BLOOD GAS PCO2 43 mm/Hg (35-45); ARTERIAL BLOOD GAS PH 7.44 (7.35-7.45); ARTERIAL BLOOD GAS PO2 126 mm/Hg (80-100); ARTERIAL BLOOD GAS TCO2 30.5 mmol/L (22-28)
--- NOTE | 2017-09-29 13:31 | CP.PCM.PN ---
Subjective - Subjective Subjective: obtunded , intubated Objective - Vital Signs/Intake and Output Vital Signs (last 24 hours): Temp Pulse Resp BP Pulse Ox 99.9 F H 107 H 16 102/52 L 100 09/29/17 08:00 09/29/17 10:00 09/29/17 10:00 09/29/17 10:00 09/29/17 10:00 Intake and Output: 09/29/17 09/29/17 06:59 18:59 Intake Total 1629 582 Output Total 952 Balance 677 582 - Medications Medications: Current Medications Acetylcysteine (Mucomyst 10% 4ml) 2 ml IH RBID [facility] Last Admin: 09/29/17 08:19 Dose: 2 ml Albuterol/Ipratropium (Duoneb 3 Mg/0.5 Mg (3 Ml) Ud) 3 ml INH RQ4 [facility] Last Admin: 09/29/17 11:23 Dose: 3 ml Calcium Carbonate (Oscal) 500 mg PO BIDWM [facility] Last Admin: 09/28/17 16:53 Dose: Not Given Ergocalciferol (Drisdol 50,000 Intl Units Cap) 1 cap PO Q7D [facility] Last Admin: 09/26/17 01:20 Dose: Not Given Famotidine (Pepcid) 20 mg IVP DAILY [facility] Last Admin: 09/29/17 08:28 Dose: 20 mg Furosemide (Lasix) 40 mg IV Q12 [facility] Last Admin: 09/29/17 08:59 Dose: 40 mg Heparin Sodium (Porcine) (Heparin) 5,000 units SC Q12 [facility] PRN Reason: Protocol Last Admin: 09/28/17 21:00 Dose: Not Given Vancomycin HCl 1 gm/ Sodium (Chloride) 250 mls @ 250 mls/hr IVPB DAILY [facility] PRN Reason: Protocol Last Admin: 09/29/17 08:28 Dose: 250 mls/hr Amiodarone HCl 450 mg/ (Dextrose) 259 mls @ 34.53 mls/hr IVPB .Q7H31M [facility]; 1 MG /MIN PRN Reason: Protocol Last Admin: 09/29/17 05:59 Dose: 34.53 mls/hr Piperacillin Sod/Tazobactam Sod (Zosyn 3.375 Gm Iv Premix) 3.375 gm in 50 mls @ 50 mls/hr IVPB Q6 [facility] PRN Reason: Protocol Lamotrigine (Lamictal) 25 mg PO BID [facility] Last Admin: 09/28/17 16:53 Dose: Not Given Lorazepam (Ativan) 2 mg IVP Q6 PRN PRN Reason: SEIZURES Metoprolol Tartrate (Lopressor) 2.5 mg IVP Q6 [facility] Last Admin: 09/29/17 08:58 Dose: 2.5 mg - Labs Labs: 09/29/17 05:30 09/29/17 05:30 PT 23.1 Seconds (9.8-13.1) H D 09/29/17 05:30 INR 2.0 (0.9-1.2) H D 09/29/17 05:30 APTT 32.3 Seconds (25.6-37.1) 09/29/17 05:30 - Constitutional Appears: Chronically Ill - Eye Exam Eye Exam: PERRL - ENT Exam Additional comments: intubated - Neck Exam Neck Exam: Normal Inspection - Respiratory Exam Respiratory Exam: Decreased Breath Sounds (at bases), Rhonchi - Cardiovascular Exam Cardiovascular Exam: Irregular Rhythm - GI/Abdominal Exam GI & Abdominal Exam: Soft, Normal Bowel Sounds - Extremities Exam Additional comments: edema - Back Exam Back Exam: NORMAL INSPECTION - Neurological Exam Additional comments: obtunded , responded to tactil stimuli - Skin Skin Exam: Warm Assessment and Plan (1) Acute respiratory failure with hypoxia Status: Acute (2) Aspiration pneumonia Status: Acute (3) Altered mental status Status: Acute (4) Pleural effusion, bilateral Status: Acute (5) Chronic CHF Status: Chronic (6) Hx of seizure disorder Status: Chronic (7) A-fib Status: Chronic (8) CANDELARIA (acute kidney injury) Status: Acute (9) Hypothermia Status: Acute (10) HTN (hypertension) Status: Chronic - Assessment and Plan (Free Text) Plan: Patioent was intubated for Respiratory Failure , continue current treatment , to have Bronchoscopy
[2017-09-29] MEDS: Acetaminophen 650mg/20.3ml solution UD PO PRN (13:57)
--- NOTE | 2017-09-29 15:17 | CP.CCUPN ---
CCU Subjective - Physician Review Events Since Last Encounter (Free Text): 09/29/17 14:43 patient appears clinically worse, intubated on vent. CCU Objective - Vital Signs / Intake & Output Intake and Output (Last 8hrs): Intake & Output 09/28/17 09/29/17 09/29/17 22:59 06:59 14:59 Intake Total 956 1276 582 Output Total 750 202 Balance 206 1074 582 Intake: IV 553 916 200 Intake, Piggyback 75 60 382 Blood Product 328 300 Output: Chest Tube Drainage 2 Right Lateral Chest 2 Urine 750 200 Urethral (Ko) 750 200 Other: # Voids Urine, Voided 1 - Physical Exam Physical Exam Limitations: Positive for: Altered Mental Status Head: Positive for: Atraumatic, Normocephalic Pupils: Positive for: PERRL, Sluggish Extroacular Muscles: Positive for: EOMI Conjunctiva: Positive for: Normal. Negative for: Icteric Ears: Positive for: Normal Mouth: Positive for: Moist Mucous Membranes Pharnyx: Negative for: ERYTHEMA Neck: Positive for: Normal Range of Motion. Negative for: JVD Respiratory/Chest: Positive for: Decreased Breath Sounds, Rhonchi (upper airway rhonchi), Tachypneic. Negative for: Accessory Muscle Use, Wheezes Cardiovascular: Positive for: Irregular Rhythm, Peripheal Pulses Present. Negative for: Murmurs, Normal S1, S2, Tachycardic, Bradycardic Abdomen: Positive for: Normal Bowel Sounds. Negative for: Tenderness, Distention, Peritoneal Signs Upper Extremity: Positive for: Edema Lower Extremity: Positive for: Edema, NORMAL PULSES. Negative for: CALF TENDERNESS, Cyanosis Neurological: Positive for: Other (withdraws to deep pain) Skin: Positive for: Warm. Negative for: Rashes Psychiatric: Positive for: Lethargic - Medications Active Medications: Active Medications Generic Name Dose Route Start Last Admin Trade Name Freq PRN Reason Stop Dose Admin Acetaminophen 650 mg 09/29/17 13:49 Tylenol 650mg/20.3ml Solution Ud PO Q6 PRN fever Acetylcysteine 2 ml 09/26/17 20:00 09/29/17 08:19 Mucomyst 10% 4ml IH 2 ml RBID [facility] Administration Albuterol/Ipratropium 3 ml 09/28/17 12:00 09/29/17 11:23 Duoneb 3 Mg/0.5 Mg (3 Ml) Ud INH 3 ml RQ4 [facility] Administration Calcium Carbonate 500 mg 09/26/17 08:00 09/28/17 16:53 Oscal PO Not Given BIDWM [facility] Ergocalciferol 1 cap 09/25/17 23:45 09/26/17 01:20 Drisdol 50,000 Intl Units Cap PO Not Given Q7D [facility] Famotidine 20 mg 09/25/17 09:00 09/29/17 08:28 Pepcid IVP 20 mg DAILY [facility] Administration Furosemide 40 mg 09/28/17 12:00 09/29/17 08:59 Lasix IV 40 mg Q12 [facility] Administration Heparin Sodium (Porcine) 5,000 units 09/28/17 21:00 09/28/17 21:00 Heparin SC Not Given Q12 [facility] Protocol Vancomycin HCl 1 gm/ Sodium 250 mls @ 250 mls/hr 09/23/17 17:44 09/29/17 08: 28 Chloride IVPB 250 mls/hr DAILY [facility] Administration Protocol Amiodarone HCl 450 mg/ 259 mls @ 34.53 mls/hr 09/28/17 15:48 09/29/17 05:59 Dextrose IVPB 34.53 mls/hr .Q7H31M [facility] Administration Protocol 1 MG/MIN Piperacillin Sod/Tazobactam Sod 3.375 gm in 50 mls @ 50 mls/hr 09/29/17 16:00 Zosyn 3.375 Gm Iv Premix IVPB Q6 [facility] Protocol Lamotrigine 25 mg 09/23/17 18:15 09/28/17 16:53 Lamictal PO Not Given BID [facility] Lorazepam 2 mg 09/25/17 04:00 Ativan IVP Q6 PRN SEIZURES Metoprolol Tartrate 2.5 mg 09/27/17 10:00 09/29/17 08:58 Lopressor IVP 2.5 mg Q6 [facility] Administration - Patient Studies Lab Studies: Microbiology Studies 09/24/17 18:00 Gram Stain - Final Body Fluid - Chest Body Fluid Culture - Final No growth. 09/26/17 14:00 Gram Stain - Final Trachasp Sputum Culture - Final NORMAL ORAL OTONIEL 09/23/17 08:15 Blood Culture - Final Blood NO GROWTH AFTER 5 DAYS Gram Stain - Final TEST NOT PERFORMED 09/23/17 08:00 Blood Culture - Final Blood NO GROWTH AFTER 5 DAYS Gram Stain - Final TEST NOT PERFORMED Lab Studies 09/29/17 09/29/17 09/29/17 Range/Units 10:32 06:16 05:30 WBC (4.8-10.8) K/uL RBC (4.40-5.90) Mil/uL Hgb (12.0-18.0) g/dL Hct (35.0-51.0) % MCV (80.0-94.0) fl MCH (27.0-31.0) pg MCHC (33.0-37.0) g/dL RDW (11.5-14.5) % Plt Count (130-400) K/uL PT (9.8-13.1) Seconds INR (0.9-1.2) APTT (25.6-37.1) Seconds pCO2 43 (35-45) mm/Hg pO2 126 H (80-100) mm/Hg HCO3 28.4 H (21-28) mmol/L ABG pH 7.44 (7.35-7.45) ABG Total CO2 30.5 H (22-28) mmol/L ABG O2 Saturation 99.1 H (95-98) % ABG O2 Content 14.1 L (15-23) ML/dL ABG Base Excess 4.5 H (-2.0-3.0) mmol/L ABG Hemoglobin 10.2 L (11.7-17.4) g/dL ABG Carboxyhemoglobin 1.5 (0.5-1.5) % POC ABG HHb (Measured) 0.9 (0.0-5.0) % ABG Methemoglobin 0.8 (0.0-3.0) % ABG O2 Capacity 14.2 L (16-24) mL/dL Broderick Test Yes A-a O2 Difference 533.0 mm/Hg Hgb O2 Saturation 96.7 (95.0-98.0) % Vent Mode Prvc ac Mechanical Rate FiO2 100.0 % Tidal Volume 450 PEEP 5 Crit Value Called To Crit Value Called By Crit Value Read Back Blood Gas Notified Time Sodium 156 H (132-148) mmol/l Potassium 3.7 (3.6-5.0) MMOL/L Chloride 115 H (98-107) mmol/L Carbon Dioxide 29 (22-30) mmol/L Anion Gap 16 (10-20) BUN 71 H (9-20) mg/dl Creatinine 2.4 H (0.8-1.5) mg/dl Est GFR ( Amer) 32 Est GFR (Non-Af Amer) 26 POC Glucose (mg/dL) 164 H (65-110) mg/dL Random Glucose 126 H (75-110) mg/dL Calcium 8.5 (8.4-10.2) mg/dL Vitamin B6 (2.1-21.7) ng/mL 09/29/17 09/29/17 09/29/17 Range/Units 05:30 05:30 04:09 WBC 15.9 H D (4.8-10.8) K/uL RBC 3.73 L (4.40-5.90) Mil/uL Hgb 10.5 L D (12.0-18.0) g/dL Hct 34.3 L (35.0-51.0) % MCV 91.9 (80.0-94.0) fl MCH 28.1 (27.0-31.0) pg MCHC 30.6 L (33.0-37.0) g/dL RDW 19.0 H (11.5-14.5) % Plt Count 152 (130-400) K/uL PT 23.1 H D (9.8-13.1) Seconds INR 2.0 H D (0.9-1.2) APTT 32.3 (25.6-37.1) Seconds pCO2 43 (35-45) mm/Hg pO2 69 L (80-100) mm/Hg HCO3 29.0 H (21-28) mmol/L ABG pH 7.45 (7.35-7.45) ABG Total CO2 31.2 H (22-28) mmol/L ABG O2 Saturation 96.7 (95-98) % ABG O2 Content 13.9 L (15-23) ML/dL ABG Base Excess 5.3 H (-2.0-3.0) mmol/L ABG Hemoglobin 10.5 L (11.7-17.4) g/dL ABG Carboxyhemoglobin 1.7 H (0.5-1.5) % POC ABG HHb (Measured) 3.2 (0.0-5.0) % ABG Methemoglobin 1.4 (0.0-3.0) % ABG O2 Capacity 14.4 L (16-24) mL/dL Broderick Test Yes A-a O2 Difference 590.0 mm/Hg Hgb O2 Saturation 93.7 L (95.0-98.0) % Vent Mode A/c Mechanical Rate 14 FiO2 100.0 % Tidal Volume 450 PEEP Crit Value Called To Crit Value Called By Crit Value Read Back Blood Gas Notified Time Sodium (132-148) mmol/l Potassium (3.6-5.0) MMOL/L Chloride (98-107) mmol/L Carbon Dioxide (22-30) mmol/L Anion Gap (10-20) BUN (9-20) mg/dl Creatinine (0.8-1.5) mg/dl Est GFR ( Amer) Est GFR (Non-Af Amer) POC Glucose (mg/dL) (65-110) mg/dL Random Glucose (75-110) mg/dL Calcium (8.4-10.2) mg/dL Vitamin B6 (2.1-21.7) ng/mL 09/28/17 09/28/17 09/25/17 Range/Units 23:49 16:41 04:45 WBC (4.8-10.8) K/uL RBC (4.40-5.90) Mil/uL Hgb (12.0-18.0) g/dL Hct (35.0-51.0) % MCV (80.0-94.0) fl MCH (27.0-31.0) pg MCHC (33.0-37.0) g/dL RDW (11.5-14.5) % Plt Count (130-400) K/uL PT (9.8-13.1) Seconds INR (0.9-1.2) APTT (25.6-37.1) Seconds pCO2 59 H 79 H* (35-45) mm/Hg pO2 55 L 44 L* (80-100) mm/Hg HCO3 27.3 26.1 (21-28) mmol/L ABG pH 7.32 L 7.22 L (7.35-7.45) ABG Total CO2 32.2 H 34.7 H (22-28) mmol/L ABG O2 Saturation 92.6 L 76.5 L (95-98) % ABG O2 Content 13.6 L 13.5 L (15-23) ML/dL ABG Base Excess 3.2 H 2.3 (-2.0-3.0) mmol/L ABG Hemoglobin 10.7 L 12.9 (11.7-17.4) g/dL ABG Carboxyhemoglobin 1.9 H 1.7 H (0.5-1.5) % POC ABG HHb (Measured) 7.2 H 22.8 H (0.0-5.0) % ABG Methemoglobin 0.8 1.1 (0.0-3.0) % ABG O2 Capacity 14.7 L 17.6 (16-24) mL/dL Broderick Test Yes Yes A-a O2 Difference 584.0 570.0 mm/Hg Hgb O2 Saturation 90.0 L 74.4 L (95.0-98.0) % Vent Mode Mechanical Rate 14 FiO2 100.0 100.0 % Tidal Volume 450 PEEP Crit Value Called To henry Butt Crit Value Called By 203 Crit Value Read Back Y Blood Gas Notified Time 1647 Sodium (132-148) mmol/l Potassium (3.6-5.0) MMOL/L Chloride (98-107) mmol/L Carbon Dioxide (22-30) mmol/L Anion Gap (10-20) BUN (9-20) mg/dl Creatinine (0.8-1.5) mg/dl Est GFR ( Amer) Est GFR (Non-Af Amer) POC Glucose (mg/dL) (65-110) mg/dL Random Glucose (75-110) mg/dL Calcium (8.4-10.2) mg/dL Vitamin B6 5.9 (2.1-21.7) ng/mL Laboratory Results - last 24 hr 09/25/17 09/28/17 09/28/17 04:45 16:41 23:49 WBC RBC Hgb Hct MCV MCH MCHC RDW Plt Count PT INR APTT pCO2 79 H* 59 H pO2 44 L* 55 L HCO3 26.1 27.3 ABG pH 7.22 L 7.32 L ABG Total CO2 34.7 H 32.2 H ABG O2 Saturation 76.5 L 92.6 L ABG O2 Content 13.5 L 13.6 L ABG Base Excess 2.3 3.2 H ABG Hemoglobin 12.9 10.7 L ABG Carboxyhemoglobin 1.7 H 1.9 H POC ABG HHb (Measured) 22.8 H 7.2 H ABG Methemoglobin 1.1 0.8 ABG O2 Capacity 17.6 14.7 L Broderick Test Yes Yes A-a O2 Difference 570.0 584.0 Hgb O2 Saturation 74.4 L 90.0 L Vent Mode Mechanical Rate 14 FiO2 100.0 100.0 Tidal Volume 450 PEEP Crit Value Called To henry Butt Crit Value Called By 203 Crit Value Read Back Y Blood Gas Notified Time 1647 Sodium Potassium Chloride Carbon Dioxide Anion Gap BUN Creatinine Est GFR ( Amer) Est GFR (Non-Af Amer) POC Glucose (mg/dL) Random Glucose Calcium Vitamin B6 5.9 09/29/17 09/29/17 09/29/17 04:09 05:30 05:30 WBC 15.9 H D RBC 3.73 L Hgb 10.5 L D Hct 34.3 L MCV 91.9 MCH 28.1 MCHC 30.6 L RDW 19.0 H Plt Count 152 PT 23.1 H D INR 2.0 H D APTT 32.3 pCO2 43 pO2 69 L HCO3 29.0 H ABG pH 7.45 ABG Total CO2 31.2 H ABG O2 Saturation 96.7 ABG O2 Content 13.9 L ABG Base Excess 5.3 H ABG Hemoglobin 10.5 L ABG Carboxyhemoglobin 1.7 H POC ABG HHb (Measured) 3.2 ABG Methemoglobin 1.4 ABG O2 Capacity 14.4 L Broderick Test Yes A-a O2 Difference 590.0 Hgb O2 Saturation 93.7 L Vent Mode A/c Mechanical Rate 14 FiO2 100.0 Tidal Volume 450 PEEP Crit Value Called To Crit Value Called By Crit Value Read Back Blood Gas Notified Time Sodium Potassium Chloride Carbon Dioxide Anion Gap BUN Creatinine Est GFR ( Amer) Est GFR (Non-Af Amer) POC Glucose (mg/dL) Random Glucose Calcium Vitamin B6 1109/29/17 09/29/17 05:30 06:16 10:32 WBC RBC Hgb Hct MCV MCH MCHC RDW Plt Count PT INR APTT pCO2 43 pO2 126 H HCO3 28.4 H ABG pH 7.44 ABG Total CO2 30.5 H ABG O2 Saturation 99.1 H ABG O2 Content 14.1 L ABG Base Excess 4.5 H ABG Hemoglobin 10.2 L ABG Carboxyhemoglobin 1.5 POC ABG HHb (Measured) 0.9 ABG Methemoglobin 0.8 ABG O2 Capacity 14.2 L Broderick Test Yes A-a O2 Difference 533.0 Hgb O2 Saturation 96.7 Vent Mode Prvc ac Mechanical Rate FiO2 100.0 Tidal Volume 450 PEEP 5 Crit Value Called To Crit Value Called By Crit Value Read Back Blood Gas Notified Time Sodium 156 H Potassium 3.7 Chloride 115 H Carbon Dioxide 29 Anion Gap 16 BUN 71 H Creatinine 2.4 H Est GFR ( Amer) 32 Est GFR (Non-Af Amer) 26 POC Glucose (mg/dL) 164 H Random Glucose 126 H Calcium 8.5 Vitamin B6 Fingerstick Blood Sugar Results: 83 Review of Systems - Review of Systems Systems not reviewed;Unavailable: Altered Mental Status Assessment/Plan (1) Acute respiratory failure Assessment and plan: 77yo M. PMHx CKD stage 3, afib, PPM, HTN, CVA, seizure disorder, BPH. p/w recurrent acute respiratory failure. Neuro: alert and following commands, seizures controlled with lamotrigine. Pulm: acute on chronic respiratory failure, secondary to pulmonary edema. intubated (09/28) overnight. Bronchoscopy (09/29), by Dr. Escamilla. CV: hemodynamically stable. Echo shows no signs of valvular disease or heart failure. Possible heart failure with preserved ejection fraction. Afib rate controlled with amiodarone IV, tranisiton to PO and lopressor IV q6h. Hem: no acute issues. Renal: diuresing with lasix 40mg IV q12h. Endo: No acute issues GI: NPO while on BIPAP ID: possible underlying pneumonia, continue Vancomycin and Zosyn. Should consider stopping. DVT proph - heparin sq GI proph - pepcid ko for strict I/O's during acute illness Code status - DNI only Current Visit: Yes Status: Acute Priority: High
[2017-09-29] MEDS ORDERED: Piperacill/Tazo 3.375gm in Dex 3.375 GM/50 ML BAG IVPB SCH (16:00)
--- NOTE | 2017-09-29 16:26 | CP.PCM.PN ---
Subjective - Date & Time of Evaluation Date of Evaluation: 09/29/17 Time of Evaluation: 12:00 - Subjective Subjective: F/U Respiratory Failure / PNA Pt obtunded, intubated last night FIO2 100%. Objective - Vital Signs/Intake and Output Vital Signs (last 24 hours): Temp Pulse Resp BP Pulse Ox 99.9 F H 116 H 16 126/68 100 09/29/17 08:00 09/29/17 16:13 09/29/17 10:00 09/29/17 16:13 09/29/17 10:00 Intake and Output: 09/29/17 09/29/17 06:59 18:59 Intake Total 1629 582 Output Total 952 Balance 677 582 - Medications Medications: Current Medications Acetaminophen (Tylenol 650mg/20.3ml Solution Ud) 650 mg PO Q6 PRN PRN Reason: fever Acetylcysteine (Mucomyst 10% 4ml) 2 ml IH RBID [facility] Last Admin: 09/29/17 08:19 Dose: 2 ml Albuterol/Ipratropium (Duoneb 3 Mg/0.5 Mg (3 Ml) Ud) 3 ml INH RQ4 [facility] Last Admin: 09/29/17 15:28 Dose: 3 ml Amiodarone HCl (Cordarone) 200 mg PO BID [facility] Calcium Carbonate (Oscal) 500 mg PO BIDWM [facility] Last Admin: 09/29/17 16:13 Dose: 500 mg Ergocalciferol (Drisdol 50,000 Intl Units Cap) 1 cap PO Q7D [facility] Last Admin: 09/26/17 01:20 Dose: Not Given Famotidine (Pepcid) 20 mg IVP DAILY [facility] Last Admin: 09/29/17 08:28 Dose: 20 mg Furosemide (Lasix) 40 mg IV Q12 [facility] Last Admin: 09/29/17 08:59 Dose: 40 mg Heparin Sodium (Porcine) (Heparin) 5,000 units SC Q12 [facility] PRN Reason: Protocol Last Admin: 09/29/17 09:00 Dose: Not Given Vancomycin HCl 1 gm/ Sodium (Chloride) 250 mls @ 250 mls/hr IVPB DAILY [facility] PRN Reason: Protocol Last Admin: 09/29/17 08:28 Dose: 250 mls/hr Amiodarone HCl 450 mg/ (Dextrose) 259 mls @ 34.53 mls/hr IVPB .Q7H31M [facility]; 1 MG /MIN PRN Reason: Protocol Last Admin: 09/29/17 05:59 Dose: 34.53 mls/hr Piperacillin Sod/Tazobactam Sod (Zosyn 3.375 Gm Iv Premix) 3.375 gm in 50 mls @ 50 mls/hr IVPB Q6 [facility] PRN Reason: Protocol Last Admin: 09/29/17 16:14 Dose: 50 mls/hr Lamotrigine (Lamictal) 25 mg PO BID [facility] Last Admin: 09/29/17 16:12 Dose: 25 mg Lorazepam (Ativan) 2 mg IVP Q6 PRN PRN Reason: SEIZURES Metoprolol Tartrate (Lopressor) 2.5 mg IVP Q6 [facility] Last Admin: 09/29/17 16:13 Dose: 2.5 mg - Labs Labs: 09/29/17 05:30 09/29/17 05:30 PT 23.1 Seconds (9.8-13.1) H D 09/29/17 05:30 INR 2.0 (0.9-1.2) H D 09/29/17 05:30 APTT 32.3 Seconds (25.6-37.1) 09/29/17 05:30 - Constitutional Appears: No Acute Distress, Chronically Ill - Head Exam Head Exam: NORMAL INSPECTION - Eye Exam Eye Exam: PERRL - ENT Exam Additional comments: Intubated - Neck Exam Neck Exam: Normal Inspection - Respiratory Exam Respiratory Exam: Decreased Breath Sounds (at bases), Rhonchi (scattered) - Cardiovascular Exam Cardiovascular Exam: Irregular Rhythm - GI/Abdominal Exam GI & Abdominal Exam: Soft, Normal Bowel Sounds - Extremities Exam Additional comments: Edema BLE - Back Exam Additional comments: Sacral maceration. - Neurological Exam Additional comments: Lethargic - Skin Skin Exam: Warm Assessment and Plan (1) Acute respiratory failure with hypoxia Status: Acute (2) Aspiration pneumonia Status: Acute (3) Altered mental status Status: Acute (4) Pleural effusion, bilateral Status: Acute (5) Chronic CHF Status: Deleted (6) Hx of seizure disorder Status: Chronic (7) A-fib Status: Chronic (8) CANDELARIA (acute kidney injury) Status: Acute (9) Hypothermia Status: Deleted (10) HTN (hypertension) Status: Chronic (11) Collapse of right lung Status: Acute - Assessment and Plan (Free Text) Plan: CXR Collapse R Lung , to have Bronchoscopy today. ICU Time: 40min. Addemdum: Bronchoscopy 09-29-17 report : Pre-Op Dx : Respiratory Failure, Collapse R Lung Bronchoscopy was done in ICU , Patient was intubated, trough a Swivel adaptor Bronchoscope was advaced trough ET tube , it was retracted. The [place] was slightly blunted , R main stem bronchi distal occluded with thick yellow secretions , also RML secretions , RLL mucus plugs , all were aspirated, there after all Right airways RUL , RML , RLL with marked hyperemia , vessel engorgement , there after Bronchoscope was withdrawn and advanced into the Left lung, the Left main stem , BRIANNE , LLL airways with marked hyperemia , vessel engorgement. There was no endobronchial lesions or extrinsic compression in all airways, Bronchoscope was withdrawn. Poat-Op Dx : R Lung Collapse 2nd to Secretions and Mucus plugs occluding Right airways Complications : none At the end of the procedure Patient was in stable condition, the bronchial washings were forwarded to Lab and Pathology
--- NOTE | 2017-09-29 16:47 | RAD ---
HISTORY: s/p bronch COMPARISON: Portable chest 09/29/2017 8:13 a.m.. FINDINGS: Patient's lower face is seen obscuring the right apex. Endotracheal tube is unchanged in position terminating at the trachea above the level of clavicles. Advancement of the tube 45 cm antegrade follow-up by confirmation radiography is advised once again. Nasonex tube is identified terminating at the left upper quadrant abdomen. Pacemaker again noted. LUNGS: Heterogeneous infiltrates are again identified at the mid to inferior chest but improved at the right base and worsened at the left perihilar region. PLEURA: Mild bilateral pleural effusions persist. No pneumothorax. CARDIOVASCULAR: Cardiomegaly is again evident with mild though pulmonary venous congestion again evident. OSSEOUS STRUCTURES: No significant abnormalities. VISUALIZED UPPER ABDOMEN: Normal. OTHER FINDINGS: None. IMPRESSION: Persistent bilateral heterogeneous infiltrates are increased at the mid left lung zone and unchanged with left base but improves the right base. Bilateral pleural effusions unchanged. Endotracheal tube remains at the trachea above the level of clavicles. Advancement further into the trachea is advised as discussed above. Confirmation radiography recommended subsequently. Apparently, on discussion of the location of this endotracheal tube with the ICU nurse taking care of the patient, Nurse Alvarenga, adjustment of the endotracheal tube has been attempted and the referring physician is aware. Re-attempted adjustment is advised. Endotracheal tube position discussed with Nurse Alvarenga with written down and read back verification 4:34 p.m. 09/29/2017.
--- NOTE | 2017-09-29 20:56 | CP.PCM.PN ---
Subjective - Date & Time of Evaluation Date of Evaluation: 09/29/17 Time of Evaluation: 20:52 - Subjective Subjective: Patient is doing better, breathing easily on the ventilator, O2 Sat is 100 to 98%, no nausea, vomiting, grimacing to pain Orogastric tube is placed. He is not moving spontaneously. No seizures are reported. Normal Vital Signs, not on pressers. Objective - Vital Signs/Intake and Output Vital Signs (last 24 hours): Temp Pulse Resp BP Pulse Ox 99.1 F 106 H 16 120/59 L 100 09/29/17 16:00 09/29/17 18:00 09/29/17 18:00 09/29/17 18:00 09/29/17 18:00 Intake and Output: 09/29/17 09/30/17 18:59 06:59 Intake Total 1294 Output Total 400 Balance 894 - Medications Medications: Current Medications Acetaminophen (Tylenol 650mg/20.3ml Solution Ud) 650 mg PO Q6 PRN PRN Reason: fever Last Admin: 09/29/17 13:57 Dose: 650 mg Acetylcysteine (Mucomyst 10% 4ml) 2 ml IH RBID [facility] Last Admin: 09/29/17 19:34 Dose: 2 ml Albuterol/Ipratropium (Duoneb 3 Mg/0.5 Mg (3 Ml) Ud) 3 ml INH RQ4 [facility] Last Admin: 09/29/17 19:34 Dose: 3 ml Amiodarone HCl (Cordarone) 200 mg PO BID [facility] Last Admin: 09/29/17 17:13 Dose: 200 mg Calcium Carbonate (Oscal) 500 mg PO BIDWM [facility] Last Admin: 09/29/17 16:13 Dose: 500 mg Ergocalciferol (Drisdol 50,000 Intl Units Cap) 1 cap PO Q7D [facility] Last Admin: 09/26/17 01:20 Dose: Not Given Famotidine (Pepcid) 20 mg IVP DAILY [facility] Last Admin: 09/29/17 08:28 Dose: 20 mg Furosemide (Lasix) 40 mg IV Q12 [facility] Last Admin: 09/29/17 08:59 Dose: 40 mg Heparin Sodium (Porcine) (Heparin) 5,000 units SC Q12 [facility] PRN Reason: Protocol Last Admin: 09/29/17 09:00 Dose: Not Given Vancomycin HCl 1 gm/ Sodium (Chloride) 250 mls @ 250 mls/hr IVPB DAILY [facility] PRN Reason: Protocol Last Admin: 09/29/17 08:28 Dose: 250 mls/hr Amiodarone HCl 450 mg/ (Dextrose) 259 mls @ 34.53 mls/hr IVPB .Q7H31M [facility]; 1 MG /MIN PRN Reason: Protocol Last Admin: 09/29/17 05:59 Dose: 34.53 mls/hr Piperacillin Sod/Tazobactam Sod (Zosyn 3.375 Gm Iv Premix) 3.375 gm in 50 mls @ 50 mls/hr IVPB Q6 [facility] PRN Reason: Protocol Last Admin: 09/29/17 16:14 Dose: 50 mls/hr Lamotrigine (Lamictal) 25 mg PO BID [facility] Last Admin: 09/29/17 16:12 Dose: 25 mg Lorazepam (Ativan) 2 mg IVP Q6 PRN PRN Reason: SEIZURES Metoprolol Tartrate (Lopressor) 2.5 mg IVP Q6 [facility] Last Admin: 09/29/17 16:13 Dose: 2.5 mg - Labs Labs: 09/29/17 05:30 09/29/17 05:30 PT 23.1 Seconds (9.8-13.1) H D 09/29/17 05:30 INR 2.0 (0.9-1.2) H D 09/29/17 05:30 APTT 32.3 Seconds (25.6-37.1) 09/29/17 05:30 Assessment and Plan (1) CANDELARIA (acute kidney injury) Status: Acute (2) Acute respiratory failure Status: Acute (3) Altered mental status Status: Acute (4) Hypothermia Status: Acute (5) Pleural effusion, bilateral Status: Acute (6) Pneumonia Status: Acute (7) Seizure disorder Status: Suspected (8) Encephalopathy Status: Acute
[2017-09-29] MEDS: Piperacill/Tazo 2.25gm in Dex 2.25 GM/50 ML BAG IVPB SCH (21:44)
--- NOTE | 2017-09-29 22:23 | CP.PCM.PN ---
Subjective - Date & Time of Evaluation Date of Evaluation: 09/29/17 Time of Evaluation: 22:22 - Subjective Subjective: obtunded responsive to pain on IV amiodarone Objective - Vital Signs/Intake and Output Vital Signs (last 24 hours): Temp Pulse Resp BP Pulse Ox 99.1 F 106 H 16 129/62 100 09/29/17 16:00 09/29/17 18:00 09/29/17 18:00 09/29/17 21:42 09/29/17 18:00 Intake and Output: 09/29/17 09/30/17 18:59 06:59 Intake Total 1294 Output Total 400 Balance 894 - Medications Medications: Current Medications Acetaminophen (Tylenol 650mg/20.3ml Solution Ud) 650 mg PO Q6 PRN PRN Reason: fever Last Admin: 09/29/17 13:57 Dose: 650 mg Acetylcysteine (Mucomyst 10% 4ml) 2 ml IH RBID [facility] Last Admin: 09/29/17 19:34 Dose: 2 ml Albuterol/Ipratropium (Duoneb 3 Mg/0.5 Mg (3 Ml) Ud) 3 ml INH RQ4 [facility] Last Admin: 09/29/17 19:34 Dose: 3 ml Amiodarone HCl (Cordarone) 200 mg PO BID [facility] Last Admin: 09/29/17 17:13 Dose: 200 mg Calcium Carbonate (Oscal) 500 mg PO BIDWM [facility] Last Admin: 09/29/17 16:13 Dose: 500 mg Ergocalciferol (Drisdol 50,000 Intl Units Cap) 1 cap PO Q7D [facility] Last Admin: 09/26/17 01:20 Dose: Not Given Famotidine (Pepcid) 20 mg IVP DAILY [facility] Last Admin: 09/29/17 08:28 Dose: 20 mg Furosemide (Lasix) 40 mg IV Q12 [facility] Last Admin: 09/29/17 21:42 Dose: 40 mg Heparin Sodium (Porcine) (Heparin) 5,000 units SC Q12 [facility] PRN Reason: Protocol Last Admin: 09/29/17 21:42 Dose: 5,000 units Vancomycin HCl 1 gm/ Sodium (Chloride) 250 mls @ 250 mls/hr IVPB DAILY [facility] PRN Reason: Protocol Last Admin: 09/29/17 08:28 Dose: 250 mls/hr Piperacillin Sod/Tazobactam Sod (Zosyn 2.25 Gm Iv Premix) 2.25 gm in 50 mls @ 50 mls/hr IVPB Q6 [facility] PRN Reason: Protocol Last Admin: 09/29/17 21:44 Dose: 50 mls/hr Lamotrigine (Lamictal) 25 mg PO BID [facility] Last Admin: 09/29/17 16:12 Dose: 25 mg Lorazepam (Ativan) 2 mg IVP Q6 PRN PRN Reason: SEIZURES Metoprolol Tartrate (Lopressor) 2.5 mg IVP Q6 [facility] Last Admin: 09/29/17 16:13 Dose: 2.5 mg - Labs Labs: 09/29/17 05:30 09/29/17 05:30 PT 23.1 Seconds (9.8-13.1) H D 09/29/17 05:30 INR 2.0 (0.9-1.2) H D 09/29/17 05:30 APTT 32.3 Seconds (25.6-37.1) 09/29/17 05:30 - Constitutional Appears: Toxic, Chronically Ill - Head Exam Head Exam: ATRAUMATIC, NORMAL INSPECTION - Eye Exam Eye Exam: PERRL - ENT Exam ENT Exam: Mucous Membranes Moist - Neck Exam Neck Exam: Normal Inspection - Respiratory Exam Respiratory Exam: Decreased Breath Sounds, Rales, Rhonchi - Cardiovascular Exam Cardiovascular Exam: Tachycardia, Irregular Rhythm, +S1, +S2, Murmur - GI/Abdominal Exam GI & Abdominal Exam: Soft - Neurological Exam Neurological Exam: Altered Assessment and Plan (1) Acute respiratory failure with hypoxia Status: Acute (2) Altered mental status Status: Deleted (3) A-fib Status: Chronic (4) Acute on chronic diastolic (congestive) heart failure Status: Chronic (5) HTN (hypertension) Status: Chronic (6) Seizure disorder Status: Chronic (7) CANDELARIA (acute kidney injury) Status: Resolved (8) Encephalopathy Status: Acute (9) Hypothermia Status: Deleted (10) Pleural effusion, bilateral Status: Acute (11) Supratherapeutic international normalized ratio (INR) Status: Acute (12) Acute decompensated heart failure Status: Acute (13) Atrial fibrillation with RVR Status: Acute
[2017-09-30] MEDS: Albuterol-Ipratrop 3 mg / 0.5 (3 ml) UD INH SCH ×6 (00:10→19:17)
[2017-09-30] MEDS: Piperacill/Tazo 2.25gm in Dex 2.25 GM/50 ML BAG IVPB SCH ×4 (03:15→21:33)
[2017-09-30] MEDS: Metoprolol 1 mg/ml Inj IVP SCH ×4 (03:16→22:14)
[2017-09-30 05:53] LABS: CALCIUM 8.5 mg/dL (8.4-10.2)
[2017-09-30 05:56] LABS: PROTHROMBIN TIME 22.3 Seconds (9.8-13.1)
[2017-09-30 06:00] LABS: ABG ALLEN TEST YES; ARTERIAL BLOOD GAS HCO3 28.7 mmol/L (21-28); ARTERIAL BLOOD GAS HEMOGLOBIN 11.2 g/dL (11.7-17.4); ARTERIAL BLOOD GAS O2 CAPACITY 15.3 mL/dL (16-24); ARTERIAL BLOOD GAS O2 CONTENT 14.9 ML/dL (15-23); ARTERIAL BLOOD GAS O2 SAT 97.1 % (95-98); ARTERIAL BLOOD GAS PCO2 48 mm/Hg (35-45); ARTERIAL BLOOD GAS PH 7.41 (7.35-7.45); ARTERIAL BLOOD GAS PO2 76 mm/Hg (80-100); ARTERIAL BLOOD GAS TCO2 31.9 mmol/L (22-28)
[2017-09-30 06:04] LABS: HEMOGLOBIN 10.9 g/dL (12.0-18.0); MEAN CELL VOLUME 91.9 fl (80.0-94.0); MEAN CORPUSCULAR HEMOGLOBIN 28.6 pg (27.0-31.0); MEAN CORPUSCULAR HGB CONC 31.1 g/dL (33.0-37.0); RBC 3.8 Mil/uL (4.40-5.90); WHITE BLOOD COUNT 15.9 K/uL (4.8-10.8)
[2017-09-30] MEDS ORDERED: Acetylcysteine 20% Inhal Soln (4ml) IH SCH (08:45)
[2017-09-30] MEDS: Potassium Chloride 20 mEq/15 ml LIQ UD PO SCH ×2 (08:56→16:20)
--- NOTE | 2017-09-30 10:31 | RAD ---
HISTORY: intubated COMPARISON: September 29, 2017. FINDINGS: LUNGS: Stable multifocal infiltrates PLEURA: Stable pleural effusions CARDIOVASCULAR: Persisting cardiomegaly Position/ configuration of pacemaker device: Satisfactory. OSSEOUS STRUCTURES: No significant abnormalities. VISUALIZED UPPER ABDOMEN: Normal. OTHER FINDINGS: Stable, satisfactory position ventilatory, er and nasogastric apparatus IMPRESSION: No significant interval change compared to the prior examination(s).
--- NOTE | 2017-09-30 11:18 | US ---
HISTORY: assess left pleural effusion COMPARISON: None. TECHNIQUE: Limited sonographic evaluation of the left thorax. FINDINGS: Large left pleural effusion with atelectatic lung. IMPRESSION: Limited sonographic evaluation of the left hemithorax demonstrated a large left pleural effusion with atelectatic lung despite the presence of an indwelling thoracostomy catheter.
--- NOTE | 2017-09-30 12:17 | CP.PCM.PN ---
Subjective - Date & Time of Evaluation Date of Evaluation: 09/30/17 Time of Evaluation: 11:30 - Subjective Subjective: F/U Respiratory Failure / PNA Pt obtunded, having some espontaneous movements. Objective - Vital Signs/Intake and Output Vital Signs (last 24 hours): Temp Pulse Resp BP Pulse Ox 99.2 F 113 H 16 103/56 L 100 09/30/17 08:00 09/30/17 10:00 09/30/17 10:00 09/30/17 10:00 09/30/17 10:00 Intake and Output: 09/30/17 09/30/17 06:59 18:59 Intake Total 580 490 Output Total 805 500 Balance -225 -10 - Medications Medications: Current Medications Acetaminophen (Tylenol 650mg/20.3ml Solution Ud) 650 mg PO Q6 PRN PRN Reason: fever Last Admin: 09/29/17 13:57 Dose: 650 mg Albuterol/Ipratropium (Duoneb 3 Mg/0.5 Mg (3 Ml) Ud) 3 ml INH RQ4 [facility] Last Admin: 09/30/17 11:59 Dose: 3 ml Amiodarone HCl (Cordarone) 200 mg PO BID [facility] Last Admin: 09/30/17 08:58 Dose: 200 mg Calcium Carbonate (Oscal) 500 mg PO BIDWM [facility] Last Admin: 09/30/17 08:57 Dose: 500 mg Ergocalciferol (Drisdol 50,000 Intl Units Cap) 1 cap PO Q7D [facility] Last Admin: 09/26/17 01:20 Dose: Not Given Famotidine (Pepcid) 20 mg IVP DAILY [facility] Last Admin: 09/30/17 10:03 Dose: 20 mg Furosemide (Lasix) 40 mg IV Q12 [facility] Last Admin: 09/30/17 09:00 Dose: 40 mg Heparin Sodium (Porcine) (Heparin) 5,000 units SC Q12 [facility] PRN Reason: Protocol Last Admin: 09/30/17 08:59 Dose: 5,000 units Vancomycin HCl 1 gm/ Sodium (Chloride) 250 mls @ 250 mls/hr IVPB DAILY [facility] PRN Reason: Protocol Last Admin: 09/30/17 10:08 Dose: Not Given Piperacillin Sod/Tazobactam Sod (Zosyn 2.25 Gm Iv Premix) 2.25 gm in 50 mls @ 50 mls/hr IVPB Q6 [facility] PRN Reason: Protocol Last Admin: 09/30/17 10:55 Dose: 50 mls/hr Lamotrigine (Lamictal) 25 mg PO BID [facility] Last Admin: 09/30/17 08:58 Dose: 25 mg Lorazepam (Ativan) 2 mg IVP Q6 PRN PRN Reason: SEIZURES Metoprolol Tartrate (Lopressor) 2.5 mg IVP Q6 [facility] Last Admin: 09/30/17 10:00 Dose: 2.5 mg Potassium Chloride (Potassium Chloride Oral Soln) 20 meq PO BID [facility] Stop: 09/30/17 17:01 Last Admin: 09/30/17 08:56 Dose: 20 meq - Labs Labs: 09/30/17 04:30 09/30/17 04:30 PT 22.3 Seconds (9.8-13.1) H 09/30/17 04:30 INR 2.0 (0.9-1.2) H 09/30/17 04:30 APTT 32.3 Seconds (25.6-37.1) 09/29/17 05:30 - Constitutional Appears: Chronically Ill - Head Exam Head Exam: NORMAL INSPECTION - Eye Exam Eye Exam: PERRL - ENT Exam Additional comments: Intubated - Neck Exam Neck Exam: Normal Inspection - Respiratory Exam Respiratory Exam: Decreased Breath Sounds (at bases), Rhonchi (scattered) - Cardiovascular Exam Cardiovascular Exam: Irregular Rhythm - GI/Abdominal Exam GI & Abdominal Exam: Soft, Normal Bowel Sounds - Extremities Exam Additional comments: Edema BLE - Back Exam Additional comments: Sacral maceration - Neurological Exam Additional comments: Minimal response to pain stimuli. - Skin Skin Exam: Warm Assessment and Plan (1) Acute respiratory failure with hypoxia Status: Acute (2) Aspiration pneumonia Status: Acute (3) CANDELARIA (acute kidney injury) Status: Acute (4) Altered mental status Status: Acute (5) Pleural effusion, bilateral Status: Acute (6) Hx of seizure disorder Status: Chronic (7) A-fib Status: Chronic (8) Diastolic CHF, acute on chronic Status: Acute (9) HTN (hypertension) Status: Chronic (10) S/P bronchoscopy Status: Acute - Assessment and Plan (Free Text) Plan: R pigtail no working, had Bronchoscopy yesterday with aspiration secretion R lung base, clearing post bronchoscopy X Ray, still b/l effusion and infiltrate, Vanco level high, on hold, continue tomorrow, to have CT chest today. ICU Time: 39 min.
--- NOTE | 2017-09-30 12:25 | CP.PCM.PN ---
Subjective - Date & Time of Evaluation Date of Evaluation: 09/30/17 Time of Evaluation: 12:22 - Subjective Subjective: CT Surgery: Dr Rascon Pt S&E. Condition has worsened over the weekend. Pt had episode of hypoxia and is now intubated, mildly arousable to verbal/painful stimuli. Right pigtail is no longer draining into canister, but dressing has become saturated. Plans have been discussed with at length, who is currently not at bedside. D/W Dr Escamilla and Dr Szymanski as well. Prognosis becoming increasingly guarded. Objective - Vital Signs/Intake and Output Vital Signs (last 24 hours): Temp Pulse Resp BP Pulse Ox 99.2 F 113 H 16 103/56 L 100 09/30/17 08:00 09/30/17 10:00 09/30/17 10:00 09/30/17 10:00 09/30/17 10:00 Intake and Output: 09/30/17 09/30/17 06:59 18:59 Intake Total 580 490 Output Total 805 500 Balance -225 -10 - Medications Medications: Current Medications Acetaminophen (Tylenol 650mg/20.3ml Solution Ud) 650 mg PO Q6 PRN PRN Reason: fever Last Admin: 09/29/17 13:57 Dose: 650 mg Albuterol/Ipratropium (Duoneb 3 Mg/0.5 Mg (3 Ml) Ud) 3 ml INH RQ4 [facility] Last Admin: 09/30/17 11:59 Dose: 3 ml Amiodarone HCl (Cordarone) 200 mg PO BID [facility] Last Admin: 09/30/17 08:58 Dose: 200 mg Calcium Carbonate (Oscal) 500 mg PO BIDWM [facility] Last Admin: 09/30/17 08:57 Dose: 500 mg Ergocalciferol (Drisdol 50,000 Intl Units Cap) 1 cap PO Q7D [facility] Last Admin: 09/26/17 01:20 Dose: Not Given Famotidine (Pepcid) 20 mg IVP DAILY [facility] Last Admin: 09/30/17 10:03 Dose: 20 mg Furosemide (Lasix) 40 mg IV Q12 [facility] Last Admin: 09/30/17 09:00 Dose: 40 mg Heparin Sodium (Porcine) (Heparin) 5,000 units SC Q12 [facility] PRN Reason: Protocol Last Admin: 09/30/17 08:59 Dose: 5,000 units Vancomycin HCl 1 gm/ Sodium (Chloride) 250 mls @ 250 mls/hr IVPB DAILY [facility] PRN Reason: Protocol Last Admin: 09/30/17 10:08 Dose: Not Given Piperacillin Sod/Tazobactam Sod (Zosyn 2.25 Gm Iv Premix) 2.25 gm in 50 mls @ 50 mls/hr IVPB Q6 [facility] PRN Reason: Protocol Last Admin: 09/30/17 10:55 Dose: 50 mls/hr Lamotrigine (Lamictal) 25 mg PO BID [facility] Last Admin: 09/30/17 08:58 Dose: 25 mg Lorazepam (Ativan) 2 mg IVP Q6 PRN PRN Reason: SEIZURES Metoprolol Tartrate (Lopressor) 2.5 mg IVP Q6 [facility] Last Admin: 09/30/17 10:00 Dose: 2.5 mg Potassium Chloride (Potassium Chloride Oral Soln) 20 meq PO BID [facility] Stop: 09/30/17 17:01 Last Admin: 09/30/17 08:56 Dose: 20 meq - Labs Labs: 09/30/17 04:30 09/30/17 04:30 PT 22.3 Seconds (9.8-13.1) H 09/30/17 04:30 INR 2.0 (0.9-1.2) H 09/30/17 04:30 APTT 32.3 Seconds (25.6-37.1) 09/29/17 05:30 - Constitutional Appears: Chronically Ill - Respiratory Exam Additional comments: intubated, minimal output from right CT, increasing consolidation b/l - Cardiovascular Exam Cardiovascular Exam: Tachycardia (afib) - Neurological Exam Neurological Exam: absent: Alert, Awake Assessment and Plan - Assessment and Plan (Free Text) Assessment: 77M w/ recurrent CHF, s/p b/l pigtail drainage catheters Plan: given persistent recurrence of pleural effusions, the only recommendation would be bilateral tube thoracostomy w/ talc pleurodesis this procedure would require OR and stabilization of INR at this point in time the does not agree to such aggressive measures, however she is not ready for DNR/DNI there is not much to be offered beyond this from Thoracic Surgery. will continue to follow d/w Dr Tarah Valdes, PGY3
--- NOTE | 2017-09-30 14:22 | CT ---
PROCEDURE: CT Chest without contrast HISTORY: Respiratory failure , Pneumonia , Pleural effusion COMPARISON: 09/23/2017. CT thorax TECHNIQUE: Contiguous axial images were obtained through the chest without intravenous contrast enhancement. Sagittal and coronal reconstructions were performed. Radiation dose (DLP): 376.55 mGy-cm. This CT exam was performed using one or more of the following dose reduction techniques: Automated exposure control, adjustment of the mA and/or kV according to patient size, and/or use of iterative reconstruction technique. FINDINGS: LUNGS: Worsening compressive atelectasis right lung, improved aeration left lower lobe. MEDIASTINUM: Unremarkable thoracic aorta. No aneurysm. Normal sized heart. Main pulmonary artery unremarkable. No vascular congestion. No lymphadenopathy. PLEURA: Increasing right pleural effusion, diminution in left pleural effusion compared to the prior study. BONES: No fracture. No destructive lesion. UPPER ABDOMEN: Nasogastric tube identified in satisfactory position within the stomach. Endotracheal tube tip remains above the apoorva. OTHER FINDINGS: None. IMPRESSION: Increasing right pleural effusion, commensurate compressive atelectasis has increase. Decreasing left pleural effusion and improved aeration of the left lung. High endotracheal tube.
--- NOTE | 2017-09-30 16:55 | CP.CCUPN ---
CCU Subjective - Physician Review Events Since Last Encounter (Free Text): 09/30/17 16:49 unresponsive on vent. CCU Objective - Vital Signs / Intake & Output Vital Signs (Last 4 hours): Vital Signs Temp Pulse Resp BP Pulse Ox 09/30/17 16:16 107 H 107/58 L 09/30/17 16:00 98.9 F 112 H 15 107/58 L 100 09/30/17 15:50 112 H 103/55 L 09/30/17 14:00 116 H 19 108/52 L 100 Intake and Output (Last 8hrs): Intake & Output 09/30/17 09/30/17 09/30/17 06:59 14:59 22:59 Intake Total 330 800 160 Output Total 805 800 200 Balance -475 0 -40 Intake: IV 100 70 50 Intake, Piggyback 10 10 Oral 40 250 100 Tube Feeding 90 170 Free Water Flush 100 300 Output: Chest Tube Drainage 5 Right Lateral Chest 5 Urine 800 800 200 Urethral (Ko) 800 800 200 - Physical Exam Physical Exam Limitations: Positive for: Altered Mental Status Head: Positive for: Atraumatic, Normocephalic Pupils: Positive for: PERRL, Sluggish Extroacular Muscles: Positive for: EOMI Conjunctiva: Positive for: Normal. Negative for: Icteric Ears: Positive for: Normal Mouth: Positive for: Moist Mucous Membranes Pharnyx: Negative for: ERYTHEMA Neck: Positive for: Normal Range of Motion. Negative for: JVD Respiratory/Chest: Positive for: Decreased Breath Sounds, Rhonchi (upper airway rhonchi), Tachypneic. Negative for: Accessory Muscle Use, Wheezes Cardiovascular: Positive for: Irregular Rhythm, Peripheal Pulses Present. Negative for: Murmurs, Normal S1, S2, Tachycardic, Bradycardic Abdomen: Positive for: Normal Bowel Sounds. Negative for: Tenderness, Distention, Peritoneal Signs Upper Extremity: Positive for: Edema Lower Extremity: Positive for: Edema, NORMAL PULSES. Negative for: CALF TENDERNESS, Cyanosis Neurological: Positive for: Other (withdraws to deep pain) Skin: Positive for: Warm. Negative for: Rashes Psychiatric: Positive for: Lethargic - Medications Active Medications: Active Medications Generic Name Dose Route Start Last Admin Trade Name Freq PRN Reason Stop Dose Admin Acetaminophen 650 mg 09/29/17 13:49 09/29/17 13:57 Tylenol 650mg/20.3ml Solution Ud PO 650 mg Q6 PRN Administration fever Albuterol/Ipratropium 3 ml 09/28/17 12:00 09/30/17 16:04 Duoneb 3 Mg/0.5 Mg (3 Ml) Ud INH 3 ml RQ4 YUKI Administration Amiodarone HCl 200 mg 09/29/17 17:00 09/30/17 16:16 Cordarone PO 200 mg BID YUKI Administration Calcium Carbonate 500 mg 09/26/17 08:00 09/30/17 16:17 Oscal PO 500 mg BIDWM YUKI Administration Ergocalciferol 1 cap 09/25/17 23:45 09/26/17 01:20 Drisdol 50,000 Intl Units Cap PO Not Given Q7D YUKI Famotidine 20 mg 09/25/17 09:00 09/30/17 10:03 Pepcid IVP 20 mg DAILY YUKI Administration Furosemide 40 mg 09/28/17 12:00 09/30/17 09:00 Lasix IV 40 mg Q12 YUKI Administration Heparin Sodium (Porcine) 5,000 units 09/28/17 21:00 09/30/17 08:59 Heparin SC 5,000 units Q12 YUKI Administration Protocol Vancomycin HCl 1 gm/ Sodium 250 mls @ 250 mls/hr 09/23/17 17:44 09/30/17 10: 08 Chloride IVPB Not Given DAILY YUKI Protocol Piperacillin Sod/Tazobactam Sod 2.25 gm in 50 mls @ 50 mls/hr 09/29/17 22:00 09/30/17 15:49 Zosyn 2.25 Gm Iv Premix IVPB 50 mls/hr Q6 YUKI Administration Protocol Lamotrigine 25 mg 09/23/17 18:15 09/30/17 16:17 Lamictal PO 25 mg BID YUKI Administration Lorazepam 2 mg 09/25/17 04:00 Ativan IVP Q6 PRN SEIZURES Metoprolol Tartrate 2.5 mg 09/27/17 10:00 09/30/17 15:50 Lopressor IVP 2.5 mg Q6 YUKI Administration Potassium Chloride 20 meq 09/30/17 09:00 09/30/17 16:20 Potassium Chloride Oral Soln PO 09/30/17 17:01 20 meq BID YUKI Administration - Patient Studies Lab Studies: Lab Studies 09/30/17 09/30/17 09/30/17 Range/Units 09:26 05:53 04:30 WBC (4.8-10.8) K/uL RBC (4.40-5.90) Mil/uL Hgb (12.0-18.0) g/dL Hct (35.0-51.0) % MCV (80.0-94.0) fl MCH (27.0-31.0) pg MCHC (33.0-37.0) g/dL RDW (11.5-14.5) % Plt Count (130-400) K/uL PT 22.3 H (9.8-13.1) Seconds INR 2.0 H (0.9-1.2) pCO2 48 H (35-45) mm/Hg pO2 76 L (80-100) mm/Hg HCO3 28.7 H (21-28) mmol/L ABG pH 7.41 (7.35-7.45) ABG Total CO2 31.9 H (22-28) mmol/L ABG O2 Saturation 97.1 (95-98) % ABG O2 Content 14.9 L (15-23) ML/dL ABG Base Excess 4.9 H (-2.0-3.0) mmol/L ABG Hemoglobin 11.2 L (11.7-17.4) g/dL ABG Carboxyhemoglobin 2.0 H (0.5-1.5) % POC ABG HHb (Measured) 2.8 (0.0-5.0) % ABG Methemoglobin 1.2 (0.0-3.0) % ABG O2 Capacity 15.3 L (16-24) mL/dL Broderick Test Yes A-a O2 Difference 292.0 mm/Hg Hgb O2 Saturation 93.9 L (95.0-98.0) % Vent Mode A/c Mechanical Rate 14 FiO2 60.0 % Tidal Volume 450 PEEP 5 Sodium (132-148) mmol/l Potassium (3.6-5.0) MMOL/L Chloride (98-107) mmol/L Carbon Dioxide (22-30) mmol/L Anion Gap (10-20) BUN (9-20) mg/dl Creatinine (0.8-1.5) mg/dl Est GFR ( Amer) Est GFR (Non-Af Amer) POC Glucose (mg/dL) (65-110) mg/dL Random Glucose (75-110) mg/dL Calcium (8.4-10.2) mg/dL Vancomycin Trough 26.8 H (5.0-10.0) ug/mL 09/30/17 09/30/17 09/29/17 Range/Units 04:30 04:30 23:33 WBC 15.9 H (4.8-10.8) K/uL RBC 3.80 L (4.40-5.90) Mil/uL Hgb 10.9 L (12.0-18.0) g/dL Hct 34.9 L (35.0-51.0) % MCV 91.9 (80.0-94.0) fl MCH 28.6 (27.0-31.0) pg MCHC 31.1 L (33.0-37.0) g/dL RDW 20.0 H (11.5-14.5) % Plt Count 142 (130-400) K/uL PT (9.8-13.1) Seconds INR (0.9-1.2) pCO2 (35-45) mm/Hg pO2 (80-100) mm/Hg HCO3 (21-28) mmol/L ABG pH (7.35-7.45) ABG Total CO2 (22-28) mmol/L ABG O2 Saturation (95-98) % ABG O2 Content (15-23) ML/dL ABG Base Excess (-2.0-3.0) mmol/L ABG Hemoglobin (11.7-17.4) g/dL ABG Carboxyhemoglobin (0.5-1.5) % POC ABG HHb (Measured) (0.0-5.0) % ABG Methemoglobin (0.0-3.0) % ABG O2 Capacity (16-24) mL/dL Broderick Test A-a O2 Difference mm/Hg Hgb O2 Saturation (95.0-98.0) % Vent Mode Mechanical Rate FiO2 % Tidal Volume PEEP Sodium 154 H (132-148) mmol/l Potassium 3.3 L (3.6-5.0) MMOL/L Chloride 114 H (98-107) mmol/L Carbon Dioxide 28 (22-30) mmol/L Anion Gap 15 (10-20) BUN 82 H (9-20) mg/dl Creatinine 2.7 H (0.8-1.5) mg/dl Est GFR ( Amer) 28 Est GFR (Non-Af Amer) 23 POC Glucose (mg/dL) 143 H (65-110) mg/dL Random Glucose 133 H (75-110) mg/dL Calcium 8.5 (8.4-10.2) mg/dL Vancomycin Trough (5.0-10.0) ug/mL Laboratory Results - last 24 hr 09/29/17 09/30/17 09/30/17 23:33 04:30 04:30 WBC 15.9 H RBC 3.80 L Hgb 10.9 L Hct 34.9 L MCV 91.9 MCH 28.6 MCHC 31.1 L RDW 20.0 H Plt Count 142 PT INR pCO2 pO2 HCO3 ABG pH ABG Total CO2 ABG O2 Saturation ABG O2 Content ABG Base Excess ABG Hemoglobin ABG Carboxyhemoglobin POC ABG HHb (Measured) ABG Methemoglobin ABG O2 Capacity Broderick Test A-a O2 Difference Hgb O2 Saturation Vent Mode Mechanical Rate FiO2 Tidal Volume PEEP Sodium 154 H Potassium 3.3 L Chloride 114 H Carbon Dioxide 28 Anion Gap 15 BUN 82 H Creatinine 2.7 H Est GFR ( Amer) 28 Est GFR (Non-Af Amer) 23 POC Glucose (mg/dL) 143 H Random Glucose 133 H Calcium 8.5 Vancomycin Trough 09/30/17 09/30/17 09/30/17 04:30 05:53 09:26 WBC RBC Hgb Hct MCV MCH MCHC RDW Plt Count PT 22.3 H INR 2.0 H pCO2 48 H pO2 76 L HCO3 28.7 H ABG pH 7.41 ABG Total CO2 31.9 H ABG O2 Saturation 97.1 ABG O2 Content 14.9 L ABG Base Excess 4.9 H ABG Hemoglobin 11.2 L ABG Carboxyhemoglobin 2.0 H POC ABG HHb (Measured) 2.8 ABG Methemoglobin 1.2 ABG O2 Capacity 15.3 L Broderick Test Yes A-a O2 Difference 292.0 Hgb O2 Saturation 93.9 L Vent Mode A/c Mechanical Rate 14 FiO2 60.0 Tidal Volume 450 PEEP 5 Sodium Potassium Chloride Carbon Dioxide Anion Gap BUN Creatinine Est GFR ( Amer) Est GFR (Non-Af Amer) POC Glucose (mg/dL) Random Glucose Calcium Vancomycin Trough 26.8 H Fingerstick Blood Sugar Results: 83 Review of Systems - Review of Systems Systems not reviewed;Unavailable: Intubated Assessment/Plan (1) Acute respiratory failure Assessment and plan: 77yo M. PMHx CKD stage 3, afib, PPM, HTN, CVA, seizure disorder, BPH. p/w recurrent acute respiratory failure. Neuro: alert and following commands, seizures controlled with lamotrigine. Pulm: acute on chronic respiratory failure, secondary to pulmonary edema. intubated (09/28) overnight. Bronchoscopy (09/29) - RLL mucous plugs, by Dr. Escamilla. CT chest today. Bilateral chest tubes with pleurodesis on Saturday, Thoracic Surgery - Dr. Rascon. CV: hemodynamically stable. Echo shows no signs of valvular disease or heart failure. Possible heart failure with preserved ejection fraction. Afib rate controlled with amiodarone IV, tranisiton to PO and lopressor IV q6h. Cardio consulted. Hem: no acute issues. Renal: diuresing with lasix 40mg IV q12h. Endo: No acute issues GI: NPO, start tube feeds. ID: possible underlying pneumonia, continue Vancomycin and Zosyn. Should consider stopping. Patien is gravely ill, and has a high mortality risk. DVT proph - heparin sq GI proph - pepcid ko for strict I/O's during acute illness Code status - full code Critical Care time 35 minutes Multi-disciplinary rounds were performed with house staff, nursing, speech therapy, respiratory therapy, pharmacy and nutrition with integrated input from the primary team/attending and other consulting services. The documented time is cumulative and includes review of patient data/exams/labs/chart review and examination of the patient on rounds and throughout the day; time is exclusive of any procedures or teaching time. Current Visit: Yes Status: Acute Priority: High
[2017-09-30] MEDS: Acetaminophen 650mg/20.3ml solution UD PO PRN (22:16)
--- NOTE | 2017-09-30 22:30 | CP.PCM.PN ---
Subjective - Date & Time of Evaluation Date of Evaluation: 09/30/17 Time of Evaluation: 22:28 - Subjective Subjective: Patient is not having any drainage from his Right side Chest Tube. He is intubated and is not doing well. No seizures are reported. Objective - Vital Signs/Intake and Output Vital Signs (last 24 hours): Temp Pulse Resp BP Pulse Ox 100.9 F H 123 H 17 126/63 100 09/30/17 22:16 09/30/17 22:14 09/30/17 18:00 09/30/17 22:14 09/30/17 18:00 Intake and Output: 09/30/17 10/01/17 18:59 06:59 Intake Total 1160 Output Total 1200 Balance -40 - Medications Medications: Current Medications Acetaminophen (Tylenol 650mg/20.3ml Solution Ud) 650 mg PO Q6 PRN PRN Reason: fever Last Admin: 09/30/17 22:16 Dose: 650 mg Albuterol/Ipratropium (Duoneb 3 Mg/0.5 Mg (3 Ml) Ud) 3 ml INH RQ4 [facility] Last Admin: 09/30/17 19:17 Dose: 3 ml Amiodarone HCl (Cordarone) 200 mg PO BID [facility] Last Admin: 09/30/17 16:16 Dose: 200 mg Calcium Carbonate (Oscal) 500 mg PO BIDWM YUKI Last Admin: 09/30/17 16:17 Dose: 500 mg Ergocalciferol (Drisdol 50,000 Intl Units Cap) 1 cap PO Q7D [facility] Last Admin: 09/26/17 01:20 Dose: Not Given Famotidine (Pepcid) 20 mg IVP DAILY [facility] Last Admin: 09/30/17 10:03 Dose: 20 mg Furosemide (Lasix) 40 mg IV Q12 YUKI Last Admin: 09/30/17 21:08 Dose: 40 mg Heparin Sodium (Porcine) (Heparin) 5,000 units SC Q12 YUKI PRN Reason: Protocol Last Admin: 09/30/17 21:07 Dose: 5,000 units Vancomycin HCl 1 gm/ Sodium (Chloride) 250 mls @ 250 mls/hr IVPB DAILY YUKI PRN Reason: Protocol Last Admin: 09/30/17 10:08 Dose: Not Given Piperacillin Sod/Tazobactam Sod (Zosyn 2.25 Gm Iv Premix) 2.25 gm in 50 mls @ 50 mls/hr IVPB Q6 YUKI PRN Reason: Protocol Last Admin: 09/30/17 21:33 Dose: 50 mls/hr Lamotrigine (Lamictal) 25 mg PO BID [facility] Last Admin: 09/30/17 16:17 Dose: 25 mg Lorazepam (Ativan) 2 mg IVP Q6 PRN PRN Reason: SEIZURES Metoprolol Tartrate (Lopressor) 2.5 mg IVP Q6 [facility] Last Admin: 09/30/17 22:14 Dose: 2.5 mg - Labs Labs: 09/30/17 04:30 09/30/17 04:30 PT 22.3 Seconds (9.8-13.1) H 09/30/17 04:30 INR 2.0 (0.9-1.2) H 09/30/17 04:30 APTT 32.3 Seconds (25.6-37.1) 09/29/17 05:30 Assessment and Plan (1) CANDELARIA (acute kidney injury) Status: Acute (2) Acute respiratory failure Status: Acute (3) Altered mental status Status: Acute (4) Hypothermia Status: Acute (5) Pleural effusion, bilateral Status: Acute (6) Pneumonia Status: Acute (7) Seizure disorder Status: Suspected (8) Encephalopathy Status: Acute
[2017-10-01] MEDS: Albuterol-Ipratrop 3 mg / 0.5 (3 ml) UD INH SCH ×7 (00:04→23:55)
--- NOTE | 2017-10-01 03:17 | CP.PCM.PN ---
Subjective - Date & Time of Evaluation Date of Evaluation: 10/01/17 Time of Evaluation: 03:00 - Subjective Subjective: He remains intubated, being responsive by grimacing, Chest tube is not draining anymore discharge. No seizures. Objective - Vital Signs/Intake and Output Vital Signs (last 24 hours): Temp Pulse Resp BP Pulse Ox 100.1 F H 108 H 16 107/50 L 100 10/01/17 00:00 10/01/17 02:00 10/01/17 02:00 10/01/17 02:00 10/01/17 02:00 Intake and Output: 09/30/17 10/01/17 18:59 06:59 Intake Total 1160 550 Output Total 1200 Balance -40 550 - Medications Medications: Current Medications Acetaminophen (Tylenol 650mg/20.3ml Solution Ud) 650 mg PO Q6 PRN PRN Reason: fever Last Admin: 09/30/17 22:16 Dose: 650 mg Albuterol/Ipratropium (Duoneb 3 Mg/0.5 Mg (3 Ml) Ud) 3 ml INH RQ4 [facility] Last Admin: 10/01/17 00:04 Dose: 3 ml Amiodarone HCl (Cordarone) 200 mg PO BID [facility] Last Admin: 09/30/17 16:16 Dose: 200 mg Calcium Carbonate (Oscal) 500 mg PO BIDWM YUKI Last Admin: 09/30/17 16:17 Dose: 500 mg Ergocalciferol (Drisdol 50,000 Intl Units Cap) 1 cap PO Q7D [facility] Last Admin: 09/26/17 01:20 Dose: Not Given Famotidine (Pepcid) 20 mg IVP DAILY [facility] Last Admin: 09/30/17 10:03 Dose: 20 mg Furosemide (Lasix) 40 mg IV Q12 [facility]I Last Admin: 09/30/17 21:08 Dose: 40 mg Heparin Sodium (Porcine) (Heparin) 5,000 units SC Q12 YUKI PRN Reason: Protocol Last Admin: 09/30/17 21:07 Dose: 5,000 units Vancomycin HCl 1 gm/ Sodium (Chloride) 250 mls @ 250 mls/hr IVPB DAILY YUKI PRN Reason: Protocol Last Admin: 09/30/17 10:08 Dose: Not Given Piperacillin Sod/Tazobactam Sod (Zosyn 2.25 Gm Iv Premix) 2.25 gm in 50 mls @ 50 mls/hr IVPB Q6 [facility] PRN Reason: Protocol Last Admin: 09/30/17 21:33 Dose: 50 mls/hr Lamotrigine (Lamictal) 25 mg PO BID [facility] Last Admin: 09/30/17 16:17 Dose: 25 mg Metoprolol Tartrate (Lopressor) 2.5 mg IVP Q6 [facility] Last Admin: 09/30/17 22:14 Dose: 2.5 mg - Labs Labs: 09/30/17 04:30 09/30/17 04:30 PT 22.3 Seconds (9.8-13.1) H 09/30/17 04:30 INR 2.0 (0.9-1.2) H 09/30/17 04:30 APTT 32.3 Seconds (25.6-37.1) 09/29/17 05:30 Assessment and Plan (1) CANDELARIA (acute kidney injury) Status: Acute (2) Acute respiratory failure Status: Acute (3) Altered mental status Status: Acute (4) Hypothermia Status: Acute (5) Pleural effusion, bilateral Status: Acute (6) Pneumonia Status: Acute (7) Seizure disorder Status: Suspected (8) Encephalopathy Status: Acute
[2017-10-01] MEDS: Piperacill/Tazo 2.25gm in Dex 2.25 GM/50 ML BAG IVPB SCH ×4 (04:00→21:09)
[2017-10-01] MEDS: Metoprolol 1 mg/ml Inj IVP SCH ×4 (04:45→21:10)
[2017-10-01 05:03] LABS: ABG ALLEN TEST YES; ARTERIAL BLOOD GAS HEMOGLOBIN 9.8 g/dL (11.7-17.4); ARTERIAL BLOOD GAS O2 CAPACITY 13.5 mL/dL (16-24); ARTERIAL BLOOD GAS O2 CONTENT 13.4 ML/dL (15-23); ARTERIAL BLOOD GAS O2 SAT 98.9 % (95-98); ARTERIAL BLOOD GAS PCO2 47 mm/Hg (35-45); ARTERIAL BLOOD GAS PH 7.45 (7.35-7.45); ARTERIAL BLOOD GAS PO2 91 mm/Hg (80-100); ARTERIAL BLOOD GAS TCO2 34.1 mmol/L (22-28)
[2017-10-01 05:14] LABS: HEMOGLOBIN 9.9 g/dL (12.0-18.0); MEAN CELL VOLUME 90.9 fl (80.0-94.0); MEAN CORPUSCULAR HEMOGLOBIN 28.8 pg (27.0-31.0); MEAN CORPUSCULAR HGB CONC 31.7 g/dL (33.0-37.0); RBC 3.42 Mil/uL (4.40-5.90); RED CELL DISTRIBUTION WIDTH 19.5 % (11.5-14.5); WHITE BLOOD COUNT 13.4 K/uL (4.8-10.8)
[2017-10-01 05:43] LABS: ALB/GLOB RATIO 0.8 (1.0-2.1); ALBUMIN 2.6 g/dL (3.5-5.0); CALCIUM 8.4 mg/dL (8.4-10.2)
[2017-10-01 06:23] LABS: PROTHROMBIN TIME 22.5 Seconds (9.8-13.1)
--- NOTE | 2017-10-01 08:07 | CP.PCM.PN ---
Subjective - Date & Time of Evaluation Date of Evaluation: 10/01/17 Time of Evaluation: 08:04 - Subjective Subjective: Ct Sx: Dr Rascon Pt S&E. Remains intubated. Minimally responsive. at bedside. Right chest tube no longer draining. D/W various options. Recommended that pt have large chest tube placed to drain effusions and consider pleurodesis. Family has elected to pursue drainage via IR, which is less invasive but perhaps not with the same termite control servicer potential resolution. Objective - Vital Signs/Intake and Output Vital Signs (last 24 hours): Temp Pulse Resp BP Pulse Ox 99.7 F H 117 H 20 111/58 L 99 10/01/17 04:00 10/01/17 06:00 10/01/17 06:00 10/01/17 06:00 10/01/17 06:00 Intake and Output: 10/01/17 10/01/17 06:59 18:59 Intake Total 900 Output Total 550 Balance 350 - Medications Medications: Current Medications Acetaminophen (Tylenol 650mg/20.3ml Solution Ud) 650 mg PO Q6 PRN PRN Reason: fever Last Admin: 09/30/17 22:16 Dose: 650 mg Albuterol/Ipratropium (Duoneb 3 Mg/0.5 Mg (3 Ml) Ud) 3 ml INH RQ4 [facility] Last Admin: 10/01/17 05:00 Dose: 3 ml Amiodarone HCl (Cordarone) 200 mg PO BID [facility] Last Admin: 09/30/17 16:16 Dose: 200 mg Calcium Carbonate (Oscal) 500 mg PO BIDWM [facility] Last Admin: 09/30/17 16:17 Dose: 500 mg Ergocalciferol (Drisdol 50,000 Intl Units Cap) 1 cap PO Q7D [facility] Last Admin: 09/26/17 01:20 Dose: Not Given Famotidine (Pepcid) 20 mg IVP DAILY [facility] Last Admin: 09/30/17 10:03 Dose: 20 mg Furosemide (Lasix) 40 mg IV Q12 [facility] Last Admin: 09/30/17 21:08 Dose: 40 mg Heparin Sodium (Porcine) (Heparin) 5,000 units SC Q12 [facility]UKI PRN Reason: Protocol Last Admin: 09/30/17 21:07 Dose: 5,000 units Vancomycin HCl 1 gm/ Sodium (Chloride) 250 mls @ 250 mls/hr IVPB DAILY [facility]I PRN Reason: Protocol Last Admin: 09/30/17 10:08 Dose: Not Given Piperacillin Sod/Tazobactam Sod (Zosyn 2.25 Gm Iv Premix) 2.25 gm in 50 mls @ 50 mls/hr IVPB Q6 [facility]UKI PRN Reason: Protocol Last Admin: 10/01/17 04:00 Dose: 50 mls/hr Lamotrigine (Lamictal) 25 mg PO BID [facility] Last Admin: 09/30/17 16:17 Dose: 25 mg Metoprolol Tartrate (Lopressor) 2.5 mg IVP Q6 [facility] Last Admin: 10/01/17 04:45 Dose: 2.5 mg - Labs Labs: 10/01/17 04:35 10/01/17 04:35 PT 22.5 Seconds (9.8-13.1) H 10/01/17 04:35 INR 2.0 (0.9-1.2) H 10/01/17 04:35 APTT 32.3 Seconds (25.6-37.1) 09/29/17 05:30 - Constitutional Appears: Chronically Ill - Respiratory Exam Respiratory Exam: Decreased Breath Sounds (b/l basilar consolidation). absent: Accessory Muscle Use, Respiratory Distress - Cardiovascular Exam Cardiovascular Exam: Tachycardia - Neurological Exam Neurological Exam: Alert, Awake, Oriented x3 - Psychiatric Exam Psychiatric exam: Normal Affect, Normal Mood - Skin Skin Exam: Normal Color, Warm Assessment and Plan - Assessment and Plan (Free Text) Assessment: 77M with b/l effusions 2/2 CHF Plan: family refusing b/l tube thoracostomy plan is for further drainage by IR CT surgery will sign off, please reconsult if needed will follow peripherally Please page vice president medical affairs [phone] when would like right pig-tail removed d/w Dr Tarah Valdes, PGY3
--- NOTE | 2017-10-01 11:48 | RAD ---
HISTORY: Intubated; with OGT COMPARISON: 09/30/2017 FINDINGS: LUNGS: Persistent bilateral perihilar and basilar opacities. Findings consistent with bilateral pneumonia as well as atelectasis and pleural effusion. PLEURA: Moderate bilateral pleural effusion, grossly unchanged. CARDIOVASCULAR: ET tube tip appears below the level of the thoracic inlet. Nasogastric tube extends to left upper quadrant of abdomen. Permanent pacemaker noted. Mild cardiomegaly. OSSEOUS STRUCTURES: No significant abnormalities. VISUALIZED UPPER ABDOMEN: Normal. OTHER FINDINGS: None. IMPRESSION: Bilateral perihilar and basilar infiltrates. Bilateral moderate pleural effusion. Permanent pacemaker. ET tube and NG tube grossly unchanged.
[2017-10-01] MEDS ORDERED: Lidocaine 1% Inj (20ml) ONE (13:38)
--- NOTE | 2017-10-01 14:06 | CP.CCUPN ---
CCU Subjective - Physician Review Subjective (Free Text): 10/01/17 16:03 The patient was Seen and examined by me at the bedside, Medical records reviewed and Management issues were discussed and formulated with the house staff. 77 Years old Male with Multiple medical conditions including Atrial Fibrillation (on coumadin), CHF, CVA, HTN, Peripheral Edema, Seizures, Sleep Apnea, TIA Who was brought by EMS along with his to the Emergency Department for AMS Per , she was told by Dr. Escamilla to come to ED for "observation" She states that he has been on antibiotics for cough for 2 days and now develop hallucination secondary to antibiotics. In the ER he was very hypothermic, lethargic but respond to basic commands CXR showing bilateral pleural effusion and bibasilar opacity Tachypnea, placed on 50% VM Blood culture drawn and Received one dose of IV Rocephin and Zithromax Admitted to the ICU for Acute hypercarbic and Hypoxemic respiratory failure and severe sepsis Chest CT scan revealed moderate bilateral pleural effusion with atelectasis PT also had Elevated INR, received TOTAL 4U FFP 09/24, Underwent Left (8 fr) pig tail placement with about 500 serious fluid drained 09/25, Underwent Right (8 fr) pig tail placement and Left CT removed Right pig tail not functioning and Patient Underwent US guided placement of a right chest tube, 8 fr today Also Underwent US guided dual lumen picc placement via the right basilic vein Today he is still Lethargic, Off sedation, orally intubated Clinically improving and hemodynamically stable No Vasopressors Afebrile A-Fib on monitor, HR controlled Started on lasix drip by cardiology Critical Care Time Spent (in minutes): 34 CCU Objective - Vital Signs / Intake & Output Vital Signs (Last 4 hours): Vital Signs Temp Pulse Resp BP Pulse Ox 10/01/17 12:00 100.5 F H 119 H 20 137/71 100 Intake and Output (Last 8hrs): Intake & Output 09/30/17 10/01/17 10/01/17 22:59 06:59 14:59 Intake Total 610 650 300 Output Total 400 550 550 Balance 210 100 -250 Intake: IV 50 0 Intake, Piggyback 60 50 Oral 100 Tube Feeding 300 400 300 Free Water Flush 100 200 Output: Chest Tube Drainage 0 Right Lateral Chest 0 Urine 400 550 550 Urethral (Wang) 400 550 550 Other: # Bowel Movements 1 - Physical Exam Head: Positive for: Atraumatic, Normocephalic Pupils: Positive for: PERRL, Sluggish Extroacular Muscles: Positive for: EOMI Conjunctiva: Positive for: Normal. Negative for: Icteric Ears: Positive for: Normal Mouth: Positive for: Moist Mucous Membranes Pharnyx: Negative for: ERYTHEMA Neck: Positive for: Normal Range of Motion. Negative for: JVD Respiratory/Chest: Positive for: Decreased Breath Sounds, Rhonchi (upper airway rhonchi), Tachypneic. Negative for: Accessory Muscle Use, Wheezes Cardiovascular: Positive for: Irregular Rhythm, Peripheal Pulses Present. Negative for: Murmurs, Normal S1, S2, Tachycardic, Bradycardic Abdomen: Positive for: Normal Bowel Sounds. Negative for: Tenderness, Distention, Peritoneal Signs Upper Extremity: Positive for: Edema Lower Extremity: Positive for: Edema, NORMAL PULSES. Negative for: CALF TENDERNESS, Cyanosis Neurological: Positive for: Other (withdraws to deep pain) Skin: Positive for: Warm. Negative for: Rashes Psychiatric: Positive for: Lethargic - Medications Active Medications: Active Medications Generic Name Dose Route Start Last Admin Trade Name Freq PRN Reason Stop Dose Admin Acetaminophen 650 mg 09/29/17 13:49 09/30/17 22:16 Tylenol 650mg/20.3ml Solution Ud PO 650 mg Q6 PRN Administration fever Albuterol/Ipratropium 3 ml 09/28/17 12:00 10/01/17 11:28 Duoneb 3 Mg/0.5 Mg (3 Ml) Ud INH 3 ml RQ4 YUKI Administration Amiodarone HCl 200 mg 09/29/17 17:00 10/01/17 09:11 Cordarone PO 200 mg BID YUKI Administration Calcium Carbonate 500 mg 09/26/17 08:00 10/01/17 08:17 Oscal PO 500 mg BIDWM YUKI Administration Ergocalciferol 1 cap 09/25/17 23:45 09/26/17 01:20 Drisdol 50,000 Intl Units Cap PO Not Given Q7D YUKI Famotidine 20 mg 09/25/17 09:00 10/01/17 08:25 Pepcid IVP 20 mg DAILY YUKI Administration Heparin Sodium (Porcine) 5,000 units 09/28/17 21:00 10/01/17 08:16 Heparin SC 5,000 units Q12 YUKI Administration Protocol Vancomycin HCl 1 gm/ Sodium 250 mls @ 250 mls/hr 09/23/17 17:44 10/01/17 08: 18 Chloride IVPB Not Given DAILY YUKI Protocol Piperacillin Sod/Tazobactam Sod 2.25 gm in 50 mls @ 50 mls/hr 09/29/17 22:00 10/01/17 10:22 Zosyn 2.25 Gm Iv Premix IVPB 50 mls/hr Q6 YUKI Administration Protocol Furosemide 100 mg/ Sodium 100 mls @ 5 mls/hr 10/01/17 12:15 Chloride IV .Q20H YUKI Protocol 5 MG/HR Lamotrigine 25 mg 09/23/17 18:15 10/01/17 08:17 Lamictal PO 25 mg BID YUKI Administration Metoprolol Tartrate 2.5 mg 09/27/17 10:00 10/01/17 10:16 Lopressor IVP 2.5 mg Q6 YUKI Administration - Patient Studies Lab Studies: Lab Studies 10/01/17 10/01/17 10/01/17 Range/Units 05:01 05:00 04:35 WBC (4.8-10.8) K/uL RBC (4.40-5.90) Mil/uL Hgb (12.0-18.0) g/dL Hct (35.0-51.0) % MCV (80.0-94.0) fl MCH (27.0-31.0) pg MCHC (33.0-37.0) g/dL RDW (11.5-14.5) % Plt Count (130-400) K/uL PT 22.5 H (9.8-13.1) Seconds INR 2.0 H (0.9-1.2) pCO2 47 H (35-45) mm/Hg pO2 91 (80-100) mm/Hg HCO3 31.0 H (21-28) mmol/L ABG pH 7.45 (7.35-7.45) ABG Total CO2 34.1 H (22-28) mmol/L ABG O2 Saturation 98.9 H (95-98) % ABG O2 Content 13.4 L (15-23) ML/dL ABG Base Excess 7.8 H (-2.0-3.0) mmol/L ABG Hemoglobin 9.8 L (11.7-17.4) g/dL ABG Carboxyhemoglobin 1.7 H (0.5-1.5) % POC ABG HHb (Measured) 1.1 (0.0-5.0) % ABG Methemoglobin 0.9 (0.0-3.0) % ABG O2 Capacity 13.5 L (16-24) mL/dL Broderick Test Yes A-a O2 Difference 278.0 mm/Hg Hgb O2 Saturation 96.2 (95.0-98.0) % Vent Mode A/c Mechanical Rate 14 FiO2 60.0 % Tidal Volume 450 PEEP 5 Sodium (132-148) mmol/l Potassium (3.6-5.0) MMOL/L Chloride (98-107) mmol/L Carbon Dioxide (22-30) mmol/L Anion Gap (10-20) BUN (9-20) mg/dl Creatinine (0.8-1.5) mg/dl Est GFR ( Amer) Est GFR (Non-Af Amer) Random Glucose (75-110) mg/dL Calcium (8.4-10.2) mg/dL Total Bilirubin (0.2-1.3) mg/dl AST (17-59) U/L ALT (21-72) U/L Alkaline Phosphatase (38-126) U/L Total Protein (6.3-8.2) G/DL Albumin (3.5-5.0) g/dL Globulin (2.2-3.9) gm/dL Albumin/Globulin Ratio (1.0-2.1) Vancomycin Trough 21.8 H (5.0-10.0) ug/mL 10/01/17 10/01/17 Range/Units 04:35 04:35 WBC 13.4 H (4.8-10.8) K/uL RBC 3.42 L (4.40-5.90) Mil/uL Hgb 9.9 L (12.0-18.0) g/dL Hct 31.1 L (35.0-51.0) % MCV 90.9 (80.0-94.0) fl MCH 28.8 (27.0-31.0) pg MCHC 31.7 L (33.0-37.0) g/dL RDW 19.5 H (11.5-14.5) % Plt Count 155 (130-400) K/uL PT (9.8-13.1) Seconds INR (0.9-1.2) pCO2 (35-45) mm/Hg pO2 (80-100) mm/Hg HCO3 (21-28) mmol/L ABG pH (7.35-7.45) ABG Total CO2 (22-28) mmol/L ABG O2 Saturation (95-98) % ABG O2 Content (15-23) ML/dL ABG Base Excess (-2.0-3.0) mmol/L ABG Hemoglobin (11.7-17.4) g/dL ABG Carboxyhemoglobin (0.5-1.5) % POC ABG HHb (Measured) (0.0-5.0) % ABG Methemoglobin (0.0-3.0) % ABG O2 Capacity (16-24) mL/dL Broderick Test A-a O2 Difference mm/Hg Hgb O2 Saturation (95.0-98.0) % Vent Mode Mechanical Rate FiO2 % Tidal Volume PEEP Sodium 158 H (132-148) mmol/l Potassium 3.6 (3.6-5.0) MMOL/L Chloride 117 H (98-107) mmol/L Carbon Dioxide 32 H (22-30) mmol/L Anion Gap 13 (10-20) BUN 88 H (9-20) mg/dl Creatinine 3.0 H (0.8-1.5) mg/dl Est GFR ( Amer) 25 Est GFR (Non-Af Amer) 20 Random Glucose 102 (75-110) mg/dL Calcium 8.4 (8.4-10.2) mg/dL Total Bilirubin 0.8 (0.2-1.3) mg/dl AST 40 (17-59) U/L ALT 26 (21-72) U/L Alkaline Phosphatase 62 (38-126) U/L Total Protein 5.8 L (6.3-8.2) G/DL Albumin 2.6 L D (3.5-5.0) g/dL Globulin 3.1 (2.2-3.9) gm/dL Albumin/Globulin Ratio 0.8 L (1.0-2.1) Vancomycin Trough (5.0-10.0) ug/mL Laboratory Results - last 24 hr 10/01/17 10/01/17 10/01/17 04:35 04:35 04:35 WBC 13.4 H RBC 3.42 L Hgb 9.9 L Hct 31.1 L MCV 90.9 MCH 28.8 MCHC 31.7 L RDW 19.5 H Plt Count 155 PT 22.5 H INR 2.0 H pCO2 pO2 HCO3 ABG pH ABG Total CO2 ABG O2 Saturation ABG O2 Content ABG Base Excess ABG Hemoglobin ABG Carboxyhemoglobin POC ABG HHb (Measured) ABG Methemoglobin ABG O2 Capacity Broderick Test A-a O2 Difference Hgb O2 Saturation Vent Mode Mechanical Rate FiO2 Tidal Volume PEEP Sodium 158 H Potassium 3.6 Chloride 117 H Carbon Dioxide 32 H Anion Gap 13 BUN 88 H Creatinine 3.0 H Est GFR ( Amer) 25 Est GFR (Non-Af Amer) 20 Random Glucose 102 Calcium 8.4 Total Bilirubin 0.8 AST 40 ALT 26 Alkaline Phosphatase 62 Total Protein 5.8 L Albumin 2.6 L D Globulin 3.1 Albumin/Globulin Ratio 0.8 L Vancomycin Trough 10/01/17 10/01/17 05:00 05:01 WBC RBC Hgb Hct MCV MCH MCHC RDW Plt Count PT INR pCO2 47 H pO2 91 HCO3 31.0 H ABG pH 7.45 ABG Total CO2 34.1 H ABG O2 Saturation 98.9 H ABG O2 Content 13.4 L ABG Base Excess 7.8 H ABG Hemoglobin 9.8 L ABG Carboxyhemoglobin 1.7 H POC ABG HHb (Measured) 1.1 ABG Methemoglobin 0.9 ABG O2 Capacity 13.5 L Broderick Test Yes A-a O2 Difference 278.0 Hgb O2 Saturation 96.2 Vent Mode A/c Mechanical Rate 14 FiO2 60.0 Tidal Volume 450 PEEP 5 Sodium Potassium Chloride Carbon Dioxide Anion Gap BUN Creatinine Est GFR ( Amer) Est GFR (Non-Af Amer) Random Glucose Calcium Total Bilirubin AST ALT Alkaline Phosphatase Total Protein Albumin Globulin Albumin/Globulin Ratio Vancomycin Trough 21.8 H Fingerstick Blood Sugar Results: 83 Assessment/Plan (1) Acute respiratory failure with hypoxia Current Visit: Yes Status: Acute Priority: High Comment: Acute hypercarbic and Hypoxemic respiratory failure secondary to likely aspiration pneumonia with pleural effusion in the setting of severe Respiratory muscle weakness Admitted to ICU care for hemodynamic and Respiratory monitoring Currently orally intubated IV Vancomycin and Piperacillin Sod/Tazobactam Diuresis with lasix drip Strict I&O, negative fluid balance Aggressive pulmonary toilet, chest PT, suctioning nebulizer treatment Maintain aspiration precautions GI/DVT PPX (2) CANDELARIA (acute kidney injury) Current Visit: Yes Status: Deleted Priority: High Comment: Optimize blood pressure, hemodynamic monitoring and maintain end-organ Gentle hydraions with D5 1/2NS at 50 ml/H Off all nephrotoxic medications Renally adjust medication dose (3) Altered mental status Current Visit: Yes Status: Acute Priority: High Comment: Toxic/metabolic encephalopathy, multifactorial in the sitting of Acute hypercarbic and Hypoxemic respiratory failure (4) Aspiration pneumonia Current Visit: No Status: Acute Priority: High (5) Pleural effusion, bilateral Current Visit: Yes Status: Acute Priority: High Comment: corrected coagulopathy 09/24, Underwent Left pig tail placement today with about 500 serious fluid drained 09/25, Underwent Right (8 fr) pig tail placement and Left CT removed 10/01, US guided placement of a right chest tube, 8 fr (6) A-fib Current Visit: No Status: Chronic Priority: High Comment: Continue IV Metoprolol, HR better Holding Warfarin due to elevated INR and for procedures (7) Seizure disorder Current Visit: No Status: Chronic Priority: Medium Comment: Continue LamoTRIgine [Lamictal] 25 mg BID
--- NOTE | 2017-10-01 14:10 | PCM.SURG1 ---
Surgeon's Initial Post Op Note - Surgeon's Notes Surgeon: Clifford Friedman MD Food Service Lead: NONE Type of Anesthesia: Local Pre-Operative Diagnosis: Poor venous access. Bilateral pleural effusion. Operative Findings: US showed a large right pleural effusion. US showed a patent right basilic vein. Post-Operative Diagnosis: Poor venous access. Pleural effusion Operation Performed: US guided dual lumen picc placement via the right basilic vein, 40 CM. Tip is in the SVC. US guided placement of a right chest tube, 8 fr. Specimen/Specimens Removed: NONE Estimated Blood Loss: EBL {In ML}: 2 Blood Products Given: N/A Drains Used: No Drains Post-Op Condition: Poor Date of Surgery/Procedure: 10/01/17 Time of Surgery/Procedure: 14:00
[2017-10-01] MEDS: Furosemide 100 MG in Sodium Chloride 0.9% 100 ML IV SCH (14:35)
--- NOTE | 2017-10-01 15:15 | CP.PCM.PN ---
Subjective - Date & Time of Evaluation Date of Evaluation: 10/01/17 Time of Evaluation: 12:00 - Subjective Subjective: F/U Respiratory Failure / PNA Pt obtunded, intubated, on ventilator Objective - Vital Signs/Intake and Output Vital Signs (last 24 hours): Temp Pulse Resp BP Pulse Ox 101.0 F H 92 H 16 111/52 L 100 10/01/17 14:11 10/01/17 14:11 10/01/17 14:11 10/01/17 14:35 10/01/17 14:11 Intake and Output: 10/01/17 10/01/17 06:59 18:59 Intake Total 900 353 Output Total 550 551 Balance 350 -198 - Medications Medications: Current Medications Acetaminophen (Tylenol 650mg/20.3ml Solution Ud) 650 mg PO Q6 PRN PRN Reason: fever Last Admin: 09/30/17 22:16 Dose: 650 mg Albuterol/Ipratropium (Duoneb 3 Mg/0.5 Mg (3 Ml) Ud) 3 ml INH RQ4 [facility] Last Admin: 10/01/17 11:28 Dose: 3 ml Amiodarone HCl (Cordarone) 200 mg PO BID [facility] Last Admin: 10/01/17 09:11 Dose: 200 mg Calcium Carbonate (Oscal) 500 mg PO BIDWM [facility] Last Admin: 10/01/17 08:17 Dose: 500 mg Ergocalciferol (Drisdol 50,000 Intl Units Cap) 1 cap PO Q7D [facility] Last Admin: 09/26/17 01:20 Dose: Not Given Famotidine (Pepcid) 20 mg IVP DAILY [facility] Last Admin: 10/01/17 08:25 Dose: 20 mg Heparin Sodium (Porcine) (Heparin) 5,000 units SC Q12 [facility]I PRN Reason: Protocol Last Admin: 10/01/17 08:16 Dose: 5,000 units Vancomycin HCl 1 gm/ Sodium (Chloride) 250 mls @ 250 mls/hr IVPB DAILY YUKI PRN Reason: Protocol Last Admin: 10/01/17 08:18 Dose: Not Given Piperacillin Sod/Tazobactam Sod (Zosyn 2.25 Gm Iv Premix) 2.25 gm in 50 mls @ 50 mls/hr IVPB Q6 YUKI PRN Reason: Protocol Last Admin: 10/01/17 10:22 Dose: 50 mls/hr Furosemide 100 mg/ Sodium (Chloride) 100 mls @ 5 mls/hr IV .Q20H YUKI; 5 MG/HR PRN Reason: Protocol Last Admin: 10/01/17 14:35 Dose: 5 mls/hr Lamotrigine (Lamictal) 25 mg PO BID [facility] Last Admin: 10/01/17 08:17 Dose: 25 mg Metoprolol Tartrate (Lopressor) 2.5 mg IVP Q6 [facility] Last Admin: 10/01/17 10:16 Dose: 2.5 mg - Labs Labs: 10/01/17 04:35 10/01/17 04:35 PT 22.5 Seconds (9.8-13.1) H 10/01/17 04:35 INR 2.0 (0.9-1.2) H 10/01/17 04:35 APTT 32.3 Seconds (25.6-37.1) 09/29/17 05:30 - Constitutional Appears: Chronically Ill - Head Exam Head Exam: NORMAL INSPECTION - Eye Exam Eye Exam: PERRL - ENT Exam Additional comments: Intubated - Neck Exam Neck Exam: Normal Inspection - Respiratory Exam Respiratory Exam: Decreased Breath Sounds (at bases), Rhonchi (scattered) Additional comments: R lateral pigtail. - Cardiovascular Exam Cardiovascular Exam: Irregular Rhythm - GI/Abdominal Exam GI & Abdominal Exam: Soft, Normal Bowel Sounds - Extremities Exam Additional comments: Edema BLE - Back Exam Additional comments: Sacral maceration. - Neurological Exam Additional comments: Lethargic. - Skin Skin Exam: Warm Assessment and Plan (1) Acute respiratory failure with hypoxia Status: Acute (2) Aspiration pneumonia Status: Acute (3) Altered mental status Status: Acute (4) Pleural effusion, bilateral Status: Acute (5) Diastolic CHF, acute on chronic Status: Acute (6) Hx of seizure disorder Status: Chronic (7) A-fib Status: Chronic (8) CANDELARIA (acute kidney injury) Status: Acute (9) HTN (hypertension) Status: Chronic (10) S/P bronchoscopy Status: Acute - Assessment and Plan (Free Text) Plan: CT shows R pleural effusion better, examined at debside with Cardiology to have Lasix drip. ICU Time: 37 min.
--- NOTE | 2017-10-01 19:04 | CP.PCM.PN ---
Subjective - Date & Time of Evaluation Date of Evaluation: 10/01/17 Time of Evaluation: 19:02 - Subjective Subjective: intubated over the weekend reaccumulation of bilateral pleural effusions HR in 110-130s obtunded Objective - Vital Signs/Intake and Output Vital Signs (last 24 hours): Temp Pulse Resp BP Pulse Ox 98.6 F 114 H 16 101/58 L 100 10/01/17 16:00 10/01/17 16:35 10/01/17 14:11 10/01/17 16:35 10/01/17 16:00 Intake and Output: 10/01/17 10/02/17 18:59 06:59 Intake Total 453 Output Total 851 Balance -398 - Medications Medications: Current Medications Acetaminophen (Tylenol 650mg/20.3ml Solution Ud) 650 mg PO Q6 PRN PRN Reason: fever Last Admin: 09/30/17 22:16 Dose: 650 mg Albuterol/Ipratropium (Duoneb 3 Mg/0.5 Mg (3 Ml) Ud) 3 ml INH RQ4 [facility] Last Admin: 10/01/17 15:59 Dose: 3 ml Amiodarone HCl (Cordarone) 200 mg PO BID [facility] Last Admin: 10/01/17 16:35 Dose: 200 mg Calcium Carbonate (Oscal) 500 mg PO BIDWM [facility] Last Admin: 10/01/17 16:35 Dose: 500 mg Ergocalciferol (Drisdol 50,000 Intl Units Cap) 1 cap PO Q7D [facility] Last Admin: 09/26/17 01:20 Dose: Not Given Famotidine (Pepcid) 20 mg IVP DAILY [facility] Last Admin: 10/01/17 08:25 Dose: 20 mg Heparin Sodium (Porcine) (Heparin) 5,000 units SC Q12 [facility]UKI PRN Reason: Protocol Last Admin: 10/01/17 08:16 Dose: 5,000 units Vancomycin HCl 1 gm/ Sodium (Chloride) 250 mls @ 250 mls/hr IVPB DAILY [facility]I PRN Reason: Protocol Last Admin: 10/01/17 08:18 Dose: Not Given Piperacillin Sod/Tazobactam Sod (Zosyn 2.25 Gm Iv Premix) 2.25 gm in 50 mls @ 50 mls/hr IVPB Q6 [facility]UKI PRN Reason: Protocol Last Admin: 10/01/17 16:38 Dose: 50 mls/hr Furosemide 100 mg/ Sodium (Chloride) 100 mls @ 5 mls/hr IV .Q20H YUKI; 5 MG/HR PRN Reason: Protocol Last Admin: 10/01/17 14:35 Dose: 5 mls/hr Lamotrigine (Lamictal) 25 mg PO BID [facility] Last Admin: 10/01/17 16:35 Dose: 25 mg Metoprolol Tartrate (Lopressor) 2.5 mg IVP Q6 [facility] Last Admin: 10/01/17 16:37 Dose: 2.5 mg - Labs Labs: 10/01/17 04:35 10/01/17 04:35 PT 22.5 Seconds (9.8-13.1) H 10/01/17 04:35 INR 2.0 (0.9-1.2) H 10/01/17 04:35 APTT 32.3 Seconds (25.6-37.1) 09/29/17 05:30 - Constitutional Appears: Toxic, In Acute Distress - Head Exam Head Exam: ATRAUMATIC - Eye Exam Eye Exam: PERRL - ENT Exam ENT Exam: Mucous Membranes Dry - Neck Exam Neck Exam: Normal Inspection - Respiratory Exam Respiratory Exam: Decreased Breath Sounds, Rales, Rhonchi - Cardiovascular Exam Cardiovascular Exam: Tachycardia, Irregular Rhythm, +S1, +S2, Murmur - GI/Abdominal Exam GI & Abdominal Exam: Soft - Extremities Exam Extremities Exam: Pedal Edema - Neurological Exam Neurological Exam: Altered Assessment and Plan (1) Acute on chronic diastolic (congestive) heart failure Assessment & Plan: initiate on lasix gtt at 5mg/hr post thoracentesis monitor renal function repeat BNP Status: Chronic (2) A-fib Assessment & Plan: cont amiodarone 200mg bid cont metoprolol Status: Chronic (3) Acute respiratory failure with hypoxia Assessment & Plan: plan for thoracentesis today Status: Acute (4) Altered mental status Status: Acute (5) HTN (hypertension) Status: Chronic (6) Seizure disorder Status: Chronic (7) CANDELARIA (acute kidney injury) Status: Acute (8) Encephalopathy Status: Acute (9) Hypothermia Status: Acute (10) Pleural effusion, bilateral Status: Acute (11) Supratherapeutic international normalized ratio (INR) Assessment & Plan: INR 2.0 Status: Acute (12) Acute decompensated heart failure Status: Acute (13) Atrial fibrillation with RVR Status: Acute
--- NOTE | 2017-10-01 21:21 | CP.PCM.PN ---
Subjective - Date & Time of Evaluation Date of Evaluation: 10/01/17 Time of Evaluation: 21:19 - Subjective Subjective: No Seizures, Right [place] Tail Chest tube was malfunctioning, today it was placed in a right position There is reported improvement in his condition, being more responsive. Objective - Vital Signs/Intake and Output Vital Signs (last 24 hours): Temp Pulse Resp BP Pulse Ox 100.2 F H 143 H 27 H 109/59 L 100 10/01/17 20:00 10/01/17 21:10 10/01/17 20:00 10/01/17 21:10 10/01/17 20:00 Intake and Output: 10/01/17 10/02/17 18:59 06:59 Intake Total 653 210 Output Total 1321 Balance -668 210 - Medications Medications: Current Medications Acetaminophen (Tylenol 650mg/20.3ml Solution Ud) 650 mg PO Q6 PRN PRN Reason: fever Last Admin: 09/30/17 22:16 Dose: 650 mg Albuterol/Ipratropium (Duoneb 3 Mg/0.5 Mg (3 Ml) Ud) 3 ml INH RQ4 [facility] Last Admin: 10/01/17 19:17 Dose: 3 ml Amiodarone HCl (Cordarone) 200 mg PO BID [facility] Last Admin: 10/01/17 16:35 Dose: 200 mg Calcium Carbonate (Oscal) 500 mg PO BIDWM [facility] Last Admin: 10/01/17 16:35 Dose: 500 mg Ergocalciferol (Drisdol 50,000 Intl Units Cap) 1 cap PO Q7D [facility] Last Admin: 09/26/17 01:20 Dose: Not Given Famotidine (Pepcid) 20 mg IVP DAILY [facility] Last Admin: 10/01/17 08:25 Dose: 20 mg Heparin Sodium (Porcine) (Heparin) 5,000 units SC Q12 [facility] PRN Reason: Protocol Last Admin: 10/01/17 20:03 Dose: 5,000 units Vancomycin HCl 1 gm/ Sodium (Chloride) 250 mls @ 250 mls/hr IVPB DAILY [facility] PRN Reason: Protocol Last Admin: 10/01/17 08:18 Dose: Not Given Piperacillin Sod/Tazobactam Sod (Zosyn 2.25 Gm Iv Premix) 2.25 gm in 50 mls @ 50 mls/hr IVPB Q6 [facility] PRN Reason: Protocol Last Admin: 10/01/17 21:09 Dose: 50 mls/hr Furosemide 100 mg/ Sodium (Chloride) 100 mls @ 5 mls/hr IV .Q20H [facility]; 5 MG/HR PRN Reason: Protocol Last Admin: 10/01/17 14:35 Dose: 5 mls/hr Lamotrigine (Lamictal) 25 mg PO BID [facility] Last Admin: 10/01/17 16:35 Dose: 25 mg Metoprolol Tartrate (Lopressor) 2.5 mg IVP Q6 [facility] Last Admin: 10/01/17 21:10 Dose: 2.5 mg - Labs Labs: 10/01/17 04:35 10/01/17 04:35 PT 22.5 Seconds (9.8-13.1) H 10/01/17 04:35 INR 2.0 (0.9-1.2) H 10/01/17 04:35 APTT 32.3 Seconds (25.6-37.1) 09/29/17 05:30 Assessment and Plan (1) CANDELARIA (acute kidney injury) Status: Acute (2) Acute respiratory failure Status: Acute (3) Altered mental status Status: Acute (4) Hypothermia Status: Acute (5) Pleural effusion, bilateral Status: Acute (6) Pneumonia Status: Acute (7) Seizure disorder Status: Suspected (8) Encephalopathy Status: Acute
[2017-10-02] MEDS: Acetaminophen 650mg/20.3ml solution UD PO PRN ×3 (03:28→20:45)
[2017-10-02] MEDS: Piperacill/Tazo 2.25gm in Dex 2.25 GM/50 ML BAG IVPB SCH ×4 (03:29→22:00)
[2017-10-02] MEDS: Metoprolol 1 mg/ml Inj IVP SCH ×5 (03:54→22:39)
[2017-10-02] MEDS: Albuterol-Ipratrop 3 mg / 0.5 (3 ml) UD INH SCH ×6 (04:35→23:24)
[2017-10-02 04:42] LABS: ABG ALLEN TEST YES; ARTERIAL BLOOD GAS HCO3 30.3 mmol/L (21-28); ARTERIAL BLOOD GAS HEMOGLOBIN 9.7 g/dL (11.7-17.4); ARTERIAL BLOOD GAS O2 CAPACITY 13.6 mL/dL (16-24); ARTERIAL BLOOD GAS O2 CONTENT 13.5 ML/dL (15-23); ARTERIAL BLOOD GAS O2 SAT 99.2 % (95-98); ARTERIAL BLOOD GAS PCO2 50 mm/Hg (35-45); ARTERIAL BLOOD GAS PH 7.42 (7.35-7.45); ARTERIAL BLOOD GAS PO2 126 mm/Hg (80-100); ARTERIAL BLOOD GAS TCO2 33.9 mmol/L (22-28)
[2017-10-02 05:07] LABS: HEMOGLOBIN 9.4 g/dL (12.0-18.0); MEAN CELL VOLUME 91.2 fl (80.0-94.0); MEAN CORPUSCULAR HEMOGLOBIN 28.4 pg (27.0-31.0); MEAN CORPUSCULAR HGB CONC 31.1 g/dL (33.0-37.0); RBC 3.31 Mil/uL (4.40-5.90); RED CELL DISTRIBUTION WIDTH 19.5 % (11.5-14.5); WHITE BLOOD COUNT 12.4 K/uL (4.8-10.8)
[2017-10-02] MEDS: Furosemide 100 MG in Sodium Chloride 0.9% 100 ML IV SCH (09:36)
--- NOTE | 2017-10-02 10:13 | CP.PCM.PN ---
Subjective - Date & Time of Evaluation Date of Evaluation: 10/02/17 Time of Evaluation: 10:13 - Subjective Subjective: waxing and waning MS afib Objective - Vital Signs/Intake and Output Vital Signs (last 24 hours): Temp Pulse Resp BP Pulse Ox 101.8 F H 111 H 30 H 133/65 100 10/02/17 09:45 10/02/17 10:00 10/02/17 10:00 10/02/17 10:00 10/02/17 10:00 Intake and Output: 10/02/17 10/02/17 06:59 18:59 Intake Total 860 70 Output Total 1680 Balance -820 70 - Medications Medications: Current Medications Acetaminophen (Tylenol 650mg/20.3ml Solution Ud) 650 mg PO Q6 PRN PRN Reason: fever Last Admin: 10/02/17 09:45 Dose: 650 mg Albuterol/Ipratropium (Duoneb 3 Mg/0.5 Mg (3 Ml) Ud) 3 ml INH RQ4 [facility] Last Admin: 10/02/17 08:08 Dose: 3 ml Amiodarone HCl (Cordarone) 200 mg PO BID [facility] Last Admin: 10/02/17 09:43 Dose: 200 mg Calcium Carbonate (Oscal) 500 mg PO BIDWM [facility]UKI Last Admin: 10/02/17 09:42 Dose: 500 mg Ergocalciferol (Drisdol 50,000 Intl Units Cap) 1 cap PO Q7D [facility] Last Admin: 09/26/17 01:20 Dose: Not Given Heparin Sodium (Porcine) (Heparin) 5,000 units SC Q12 YUKI PRN Reason: Protocol Last Admin: 10/02/17 09:30 Dose: 5,000 units Vancomycin HCl 1 gm/ Sodium (Chloride) 250 mls @ 250 mls/hr IVPB DAILY YUKI PRN Reason: Protocol Last Admin: 10/02/17 09:56 Dose: Not Given Piperacillin Sod/Tazobactam Sod (Zosyn 2.25 Gm Iv Premix) 2.25 gm in 50 mls @ 50 mls/hr IVPB Q6 YUKI PRN Reason: Protocol Last Admin: 10/02/17 09:51 Dose: 50 mls/hr Furosemide 100 mg/ Sodium (Chloride) 100 mls @ 5 mls/hr IV .Q20H YUKI; 5 MG/HR PRN Reason: Protocol Last Admin: 10/02/17 09:36 Dose: 5 mls/hr Lamotrigine (Lamictal) 25 mg PO BID [facility] Last Admin: 10/02/17 09:42 Dose: 25 mg Lorazepam (Ativan) 2 mg IVP Q6 PRN PRN Reason: Seizure activity Metoprolol Tartrate (Lopressor) 2.5 mg IVP Q6 [facility] Last Admin: 10/02/17 09:31 Dose: 2.5 mg - Labs Labs: 10/02/17 04:20 10/02/17 04:20 PT 22.5 Seconds (9.8-13.1) H 10/01/17 04:35 INR 2.0 (0.9-1.2) H 10/01/17 04:35 APTT 32.3 Seconds (25.6-37.1) 09/29/17 05:30 - Constitutional Appears: Toxic - Head Exam Head Exam: ATRAUMATIC, NORMAL INSPECTION, NORMOCEPHALIC - Eye Exam Eye Exam: EOMI, Normal appearance, PERRL Pupil Exam: NORMAL ACCOMODATION, PERRL - ENT Exam ENT Exam: Mucous Membranes Moist, Normal Exam - Neck Exam Neck Exam: Full ROM, Normal Inspection. absent: Lymphadenopathy - Respiratory Exam Respiratory Exam: Clear to Ausculation Bilateral, NORMAL BREATHING PATTERN - Cardiovascular Exam Cardiovascular Exam: REGULAR RHYTHM, +S1, +S2. absent: Murmur - GI/Abdominal Exam GI & Abdominal Exam: Soft, Normal Bowel Sounds. absent: Tenderness - Extremities Exam Extremities Exam: Full ROM, Normal Capillary Refill, Normal Inspection. absent : Joint Swelling, Pedal Edema - Back Exam Back Exam: NORMAL INSPECTION - Neurological Exam Neurological Exam: Alert, Awake - Psychiatric Exam Psychiatric exam: Normal Affect, Normal Mood - Skin Skin Exam: Dry, Intact, Normal Color, Warm Assessment and Plan (1) Acute on chronic diastolic (congestive) heart failure Status: Chronic (2) A-fib Status: Chronic (3) Acute respiratory failure with hypoxia Status: Acute (4) Altered mental status Status: Deleted (5) HTN (hypertension) Status: Chronic (6) Seizure disorder Status: Chronic (7) CANDELARIA (acute kidney injury) Status: Resolved (8) Encephalopathy Status: Acute (9) Hypothermia Status: Deleted (10) Pleural effusion, bilateral Status: Acute (11) Supratherapeutic international normalized ratio (INR) Status: Acute (12) Acute decompensated heart failure Status: Acute (13) Atrial fibrillation with RVR Status: Acute
--- NOTE | 2017-10-02 10:40 | RAD ---
HISTORY: ETT placement COMPARISON: 10/01/2017 FINDINGS: LUNGS: Extensive left basilar opacity unchanged from prior. Slight decrease in extent of right basilar opacity. PLEURA: Suspect small left pleural effusion. No right pleural effusion. Right basilar pleural pigtail catheter noted. No pneumothorax. CARDIOVASCULAR: Normal heart size. Endotracheal tube not visualized. ? Status post removal. Nasogastric tube extends to left upper quadrant of abdomen. Permanent pacemaker. Right PICC catheter terminates in the superior vena cava. OSSEOUS STRUCTURES: No significant abnormalities. VISUALIZED UPPER ABDOMEN: Normal. OTHER FINDINGS: None. IMPRESSION: Endotracheal tube tip not visualized. History for this examination says endotracheal tube placement. If the endotracheal tube is present, it is not within the thorax and replacement/ repositioning is advised.
--- NOTE | 2017-10-02 11:12 | VASCULAR ---
PROCEDURE: Date of procedure: 10/01/2017 Procedure: 1. Placement of a right chest tube with ultrasound guidance, CPT 46900 2. Ultrasound guidance for procedure, CPT 74298 Medications: 8cc 1 percent lidocaine HISTORY: Large right pleural effusion TECHNIQUE: Following informed consent and procedure time-out, the patient's right chest was marked, prepped and draped in the usual sterile fashion. Ultrasound showed a large loculated right pleural effusion. After the skin was anesthetized with 1% lidocaine, a Gerhard catheter was advanced under ultrasound guidance into the pleural space. The catheter was exchanged over an 035 guidewire and tract was dilated to accommodate a 8 [place] pigtail catheter formed within the pleural space. There is return of slight serosanguinous fluid. The catheter was secured to patient's skin. A xeroform dressing was applied. The catheter was then attached to a pleurovac. Postprocedure x-ray showed a right chest tube. IMPRESSION: Placement of an 8 [place] pigtail catheter in the right pleural space. There were no immediate complications.
--- NOTE | 2017-10-02 11:14 | VASCULAR ---
PROCEDURE: Date of procedure: 10/01/2017 Procedure: 1. Placement of a right arm PICC with ultrasound and fluoroscopic guidance, CPT 59196 2. PICC tip confirmation with spot radiograph and is in the superior vena cava Medications: 1 percent lidocaine Total Fluoro time: 10 seconds Radiation: 1.86 MGy EBL: 2 cc HISTORY: Poor venous access TECHNIQUE: Following informed consent and procedure time-out, the patient was placed supine on the interventional table and the right arm prepped and draped in the usual sterile fashion. Ultrasound showed a patent and compressible right basilic vein. After the skin was anesthetized with lidocaine, the basilic vein was accessed with micro micropuncture technique using ultrasound guidance. A guidewire was then advanced under fluoroscopic guidance into the superior vena cava. An image documenting ultrasound guidance for vascular access was permanently saved. The length of the dual-lumen 5 [place] PICC was trimmed to 40 centimeters and advanced through a peel-away sheath. The PICC was position with tip of PICC confirm a spot radiograph the superior vena cava. The PICC was secured to the patient's skin. The PICC was flushed. A biopatch and sterile dressing was applied. IMPRESSION: Placement of a dual-lumen 5 [place] PICC trimmed to 40 centimeters via right basilic vein. The tip of the PICC is confirmed with spot radiograph and is in the superior vena cava.
--- NOTE | 2017-10-02 11:37 | CP.PCM.CON ---
History of Present Illness - History of Present Illness History of Present Illness: 77 yo M w/ pmh of of atrial fib, hx of PPM placement, ? diastolic heart failure that initially presented to the hospital with altered mental status and pleural effusions. His course has been complicated by hypoxia requiring intubation, pig tail cathether placement and thoracentesis for pleural effusions. He has been followed by neuro and cardiology and pulm as well. He has been on broad spectrum abx as well. He has been diuresisng well over the last several days and has developed CANDELARIA and hypernatremia. ros: a full detailed ROS is limited as pt is intubated and sedated famhx: unable to obtain pt intubated and sedated sochx: unable to obtain pt intubated and sedated pe: vs reviewed gen: intubated and sedated sclera: anicteric op et tube neck: supple cv: Tachy, +s1+s2 lungs: dec bs at bases abd: soft ext: 2+ presacral edema neuro: opens eyes to voice psych: flat skin: scattered ecchymoses Past Patient History - Infectious Disease Hx of Infectious Diseases: None - Past Medical History & Family History Past Medical History?: Yes - Past Social History Smoking Status: Never Smoked Alcohol: None Drugs: Denies Home Situation {Lives}: With Family - CARDIAC Hx Atrial Fibrillation: Yes Hx Congestive Heart Failure: Yes Hx Hypertension: Yes Hx Peripheral Edema: Yes - PULMONARY Hx Sleep Apnea: Yes - NEUROLOGICAL Hx Seizures: Yes Hx Transient Ischemic Attacks (TIA): Yes - HEENT Hx HEENT Problems: No - RENAL Hx Chronic Kidney Disease: No - ENDOCRINE/METABOLIC Hx Endocrine Disorders: No - HEMATOLOGICAL/ONCOLOGICAL Hx Human Immunodeficiency Virus (HIV): No - INTEGUMENTARY Hx Dermatological Problems: No - MUSCULOSKELETAL/RHEUMATOLOGICAL Hx Musculoskeletal Disorders: Yes Hx Falls: Yes Hx Unsteady Gait: Yes - GASTROINTESTINAL Hx Gastrointestinal Disorders: No - GENITOURINARY/GYNECOLOGICAL Hx Genitourinary Disorders: Yes Hx Incontinence: Yes Hx Prostate Problems: Yes (BPH) - PSYCHIATRIC Hx Psychophysiologic Disorder: Yes Hx Hallucinations: Yes Hx Substance Use: No - SURGICAL HISTORY Hx Surgeries: No - ANESTHESIA Hx Anesthesia: No Meds Allergies/Adverse Reactions: Allergies Allergy/AdvReac Type Severity Reaction Status Date / Time EGG AdvReac HEADACHE Verified 09/23/17 07:32 seafoods Allergy SWELLING Uncoded 09/23/17 07:32 - Medications Medications: Current Medications Acetaminophen (Tylenol 650mg/20.3ml Solution Ud) 650 mg PO Q6 PRN PRN Reason: fever Last Admin: 10/02/17 09:45 Dose: 650 mg Albuterol/Ipratropium (Duoneb 3 Mg/0.5 Mg (3 Ml) Ud) 3 ml INH RQ4 [facility] Last Admin: 10/02/17 08:08 Dose: 3 ml Amiodarone HCl (Cordarone) 200 mg PO BID [facility] Last Admin: 10/02/17 09:43 Dose: 200 mg Calcium Carbonate (Oscal) 500 mg PO BIDWM [facility] Last Admin: 10/02/17 09:42 Dose: 500 mg Ergocalciferol (Drisdol 50,000 Intl Units Cap) 1 cap PO Q7D [facility] Last Admin: 09/26/17 01:20 Dose: Not Given Heparin Sodium (Porcine) (Heparin) 5,000 units SC Q12 [facility] PRN Reason: Protocol Last Admin: 10/02/17 09:30 Dose: 5,000 units Vancomycin HCl 1 gm/ Sodium (Chloride) 250 mls @ 250 mls/hr IVPB DAILY [facility] PRN Reason: Protocol Last Admin: 10/02/17 09:56 Dose: Not Given Piperacillin Sod/Tazobactam Sod (Zosyn 2.25 Gm Iv Premix) 2.25 gm in 50 mls @ 50 mls/hr IVPB Q6 [facility] PRN Reason: Protocol Last Admin: 10/02/17 09:51 Dose: 50 mls/hr Furosemide 100 mg/ Sodium (Chloride) 100 mls @ 5 mls/hr IV .Q20H [facility]I; 5 MG/HR PRN Reason: Protocol Last Admin: 10/02/17 09:36 Dose: 5 mls/hr Lamotrigine (Lamictal) 25 mg PO BID [facility] Last Admin: 10/02/17 09:42 Dose: 25 mg Lorazepam (Ativan) 2 mg IVP Q6 PRN PRN Reason: Seizure activity Metoprolol Tartrate (Lopressor) 2.5 mg IVP Q6 [facility] Last Admin: 10/02/17 09:31 Dose: 2.5 mg Results - Vital Signs Recent Vital Signs: Last Vital Signs Temp 101.8 F H 10/02/17 09:45 Pulse 111 H 10/02/17 10:00 Resp 30 H 10/02/17 10:00 BP 133/65 10/02/17 10:00 Pulse Ox 100 10/02/17 10:00 - Labs Result Diagrams: 10/02/17 04:20 10/02/17 04:20 Labs: Laboratory Results - last 24 hr 10/02/17 10/02/17 10/02/17 04:20 04:20 04:32 WBC 12.4 H RBC 3.31 L Hgb 9.4 L Hct 30.2 L MCV 91.2 MCH 28.4 MCHC 31.1 L RDW 19.5 H Plt Count 183 pCO2 50 H pO2 126 H HCO3 30.3 H ABG pH 7.42 ABG Total CO2 33.9 H ABG O2 Saturation 99.2 H ABG O2 Content 13.5 L ABG Base Excess 6.9 H ABG Hemoglobin 9.7 L ABG Carboxyhemoglobin 1.4 POC ABG HHb (Measured) 0.8 ABG Methemoglobin 0.7 ABG O2 Capacity 13.6 L Broderick Test Yes A-a O2 Difference 168.0 Hgb O2 Saturation 97.2 Vent Mode A/c Mechanical Rate 14 FiO2 50.0 Tidal Volume 450 PEEP 5 Sodium 159 H Potassium 3.8 Chloride 116 H Carbon Dioxide 31 H Anion Gap 16 BUN 98 H Creatinine 3.1 H Est GFR ( Amer) 24 Est GFR (Non-Af Amer) 20 Random Glucose 186 H Calcium 8.0 L NT-Pro-B Natriuret Pep 10/02/17 10:21 WBC RBC Hgb Hct MCV MCH MCHC RDW Plt Count pCO2 pO2 HCO3 ABG pH ABG Total CO2 ABG O2 Saturation ABG O2 Content ABG Base Excess ABG Hemoglobin ABG Carboxyhemoglobin POC ABG HHb (Measured) ABG Methemoglobin ABG O2 Capacity Broderikc Test A-a O2 Difference Hgb O2 Saturation Vent Mode Mechanical Rate FiO2 Tidal Volume PEEP Sodium Potassium Chloride Carbon Dioxide Anion Gap BUN Creatinine Est GFR ( Amer) Est GFR (Non-Af Amer) Random Glucose Calcium NT-Pro-B Natriuret Pep 11150 H Assessment & Plan - Assessment and Plan (Free Text) Assessment: ARF/ VDRF-hypoxic/ Bilateral pleural effusions/ hypernatremia/ anemia plan: CANDELARIA i suspect is likely due to pre-renal. His TTE from last week suggests > 50 % collapse of IVC w/ inspiration and CT chest from several days ago shows effusions but no pulmonary edema. Etiology of pleural effusions not clear but seems like he has been intravascularly volume depleted w/ diuresis and since it has not improved the pleural effusions would recc discontinuation of the lasix gtt. Recc start free water flushes Follow cbc vent wean per primary may need further thoracentesis will check ua and urine lytes and assess for any activity. Care discussed w/ at bedside and Dr. Serrano
[2017-10-02 13:15] LABS: SQUAMOUS EPITHIAL < 1 /hpf (0-5); URINE AMORPHOUS SEDIMENT RARE /ul (<OCC); URINE BACTERIA RARE (<OCC); URINE BILIRUBIN NEGATIVE (NEGATIVE); URINE BLOOD MODERATE (NEGATIVE); URINE CLARITY CLOUDY (Clear); URINE COLOR YELLOW (YELLOW); URINE GLUCOSE (UA) NEG (Normal); URINE LEUKOCYTE ESTERASE TRACE Leu/uL (Negative); URINE PROTEIN 100 mg/dL (NEGATIVE); URINE UROBILINOGEN 0.2-1.0 mg/dL (0.2-1.0)
[2017-10-02 14:57] LABS: CREATININE, RANDOM URINE 75.2 mg/dL
--- NOTE | 2017-10-02 15:03 | PCM.ANES ---
Anesthesia Emergent Intubation - Diagnosis Working Diagnosis:: respiratory distress S/P intubation - Consult Reason for Consult:: dislodged ETT - Intubation Attempts Previous Number of Intubation Attempts:: 0 - Pre-Intubation Vital Signs Blood Pressure: 118/69 Heart Rate: 133 Respiratory Rate: 31 O2 Sat: 99 FIO2: 100 Oxygen Delivery Method: Mechanical Ventilator Level Of Consciousness: Lethargic - Airway Management Oropharyngeal Area Suctioned: Yes Inhalation: No Rapid Sequence: No Cricoid Pressure: Yes Possible Aspiration: No - Method of Intubation Intubation Method: Oral ETT ETT Size: 8 Lipline@: 22 Easy: Yes Atramatic: Yes - Intubation Devices Rey Blade Size Used: 3 Shakira Forcepts Used: No [place] Scope Used: No Fiber Optic Scope: No - Placement Confirmation Breath Sounds Present & Equal Bilaterally: Yes Gurgling Sounds Not Audible at Epigastrum: Yes Positive EtCO2: Yes Portable CXR: No Recommendations: Ventilator, Chest X Ray, ABG - Post-Intubation Vital Signs Blood Pressure: 106/65 Heart Rate: 125 Respiratory Rate: 16 O2 Sat: 100 FIO2: 100
[2017-10-02] MEDS ORDERED: Digoxin 500 mcg/2ml (0.5 mg/2ml) Inj IVP ONE (15:05)
[2017-10-02] MEDS ORDERED: Metoprolol 1 mg/ml Inj IVP ONE (15:05)
--- NOTE | 2017-10-02 15:16 | CP.CCUPN ---
CCU Subjective - Physician Review Subjective (Free Text): Events overnight leading to oral intubation and MV support reviewed, now MV day # 5, he remains lethargic and poorly responsive, contrary to wifes remarks about his improvement and wakefulness. No interaction noted, nor does he follow any verbal commands. Eyes primarly closed at all times. FiO2 decreased to 50% this Am from 60%. He does not appear distressed, nor any increased work of breathing noted. Rapid A fib persists with JHR up to 130-140s. BP 128/70. Other vitals and I/O's reviewed. He is now febrile to 102F now and spiking temps remaining at 101.8F. Urine output has been brisk on current Lasix drip at 5 mg/hr, with negative almost 1.5 L balance last 24H. ROS: Unobtainable due to lethargy. No other pertinent negs or positives on 10+ system review. PMSFH: All other Nursing and physician documentation reviewed to date; no new pertinent info noted relevant to current medical problems. CXR: unable to visualize ETT position, it may appear to be high up past the level of the clavicular heads. Mild lung water R lung noted, R horizontal fissure prominent, Left basilar opacification increasing (my interp). IMPRESSION / MAJOR PROBLEMS NOW: 1. Acute Resp ( Hypoxemic) failure 2 bilat effusions, and compressive atelectasis, unclear if any superimposed pneumonitic process. 2. Encephalopathy: etiology unclear, ?? metabolic vs cryptogenic seizures vs ?? CVA?? 3. Chronic A Fib, presently with controlled VR 4. r/o Cardiomyopathy vs Diastolic Dysfx CHF- non-invasive TTE shows preserved EF. 5. Azotemia, CKD III ( Bun/Cr was 36/1.5 at the time of last hospital discharge) 6. Warfarin induced-coagulopathy PLAN: 1. As per discussion with Pulm/ PMD: effusion on the Left apparent again. There is no longer any pigtail within the L chest. R lung is mostly clear on todays CXR. Will discuss with IR regarding size of Left effusion and whether it is amenable to re-thoracentesis or pigtail drainage placement. Overall impression is left effusion may be too small to safely tap given INR elevation and AFib with RVR. 2. As discussed with Nephro: excessive diuresis noted especially with increasing Hypernatremia and rapid A fib may be a secondary reaction to intravascular volume depletion. Lasix drip to be stopped, and hopefully BUN/Cr levels, and Na levels will improve a bit with tap water hydration via enteral feeds. 3. INR elevation noted, will need correction again for any anticipated procedure. 4. ETT re-position attempted this AM, unable to move ETT lower past 20cm chirag at the lips. Unable to pass suction catheter more than retirement down. Will need to consider re-intubating with new ETT or look for obstruction with FOB. 5. IVP Lopressor given in 2.5mg aliquots for VR control, now resulting in more of a hypotensive response with approx. 25mmHg drop in SBP after administration. Ongoing Amiodarone use noted. Cautious prn Digoxin use as well given increase in Cr levels and usual Dig-Amio interaction. CCU Objective - Vital Signs / Intake & Output Vital Signs (Last 4 hours): Vital Signs Temp Pulse Resp BP Pulse Ox 10/02/17 15:08 133 H 31 H 118/69 99 10/02/17 14:00 143 H 32 H 133/81 100 10/02/17 12:00 101.2 F H 137 H 16 121/59 L 100 Intake and Output (Last 8hrs): Intake & Output 10/02/17 10/02/17 10/02/17 06:59 14:59 22:59 Intake Total 540 132 Output Total 1680 Balance -1140 132 Intake: IV 40 Intake, Piggyback 132 Tube Feeding 400 Free Water Flush 100 Output: Chest Tube Drainage 1080 Right Mid-Axillary Chest 1080 Urine 600 Urethral (Wang) 600 Other: # Bowel Movements 0 - Physical Exam Head: Positive for: Atraumatic, Normocephalic Pupils: Positive for: PERRL, Sluggish Extroacular Muscles: Positive for: EOMI Conjunctiva: Positive for: Normal. Negative for: Icteric Ears: Positive for: Normal Mouth: Positive for: Moist Mucous Membranes Pharnyx: Negative for: ERYTHEMA Neck: Positive for: Normal Range of Motion. Negative for: JVD Respiratory/Chest: Positive for: Decreased Breath Sounds, Rhonchi (upper airway rhonchi), Tachypneic. Negative for: Accessory Muscle Use, Wheezes Cardiovascular: Positive for: Irregular Rhythm, Peripheal Pulses Present. Negative for: Murmurs, Normal S1, S2, Tachycardic, Bradycardic Abdomen: Positive for: Normal Bowel Sounds. Negative for: Tenderness, Distention, Peritoneal Signs Upper Extremity: Positive for: Edema Lower Extremity: Positive for: Edema, NORMAL PULSES. Negative for: CALF TENDERNESS, Cyanosis Neurological: Positive for: Other (withdraws to deep pain) Skin: Positive for: Warm. Negative for: Rashes Psychiatric: Positive for: Lethargic - Medications Active Medications: Active Medications Generic Name Dose Route Start Last Admin Trade Name Freq PRN Reason Stop Dose Admin Acetaminophen 650 mg 09/29/17 13:49 10/02/17 09:45 Tylenol 650mg/20.3ml Solution Ud PO 650 mg Q6 PRN Administration fever Albuterol/Ipratropium 3 ml 09/28/17 12:00 10/02/17 11:48 Duoneb 3 Mg/0.5 Mg (3 Ml) Ud INH 3 ml RQ4 YUKI Administration Amiodarone HCl 200 mg 09/29/17 17:00 10/02/17 09:43 Cordarone PO 200 mg BID YUKI Administration Calcium Carbonate 500 mg 09/26/17 08:00 10/02/17 09:42 Oscal PO 500 mg BIDWM YUKI Administration Ergocalciferol 1 cap 09/25/17 23:45 09/26/17 01:20 Drisdol 50,000 Intl Units Cap PO Not Given Q7D [facility] Heparin Sodium (Porcine) 5,000 units 09/28/17 21:00 10/02/17 09:30 Heparin SC 5,000 units Q12 YUKI Administration Protocol Vancomycin HCl 1 gm/ Sodium 250 mls @ 250 mls/hr 09/23/17 17:44 10/02/17 09: 56 Chloride IVPB Not Given DAILY [facility] Protocol Piperacillin Sod/Tazobactam Sod 2.25 gm in 50 mls @ 50 mls/hr 09/29/17 22:00 10/02/17 09:51 Zosyn 2.25 Gm Iv Premix IVPB 50 mls/hr Q6 YUKI Administration Protocol Lamotrigine 25 mg 09/23/17 18:15 10/02/17 09:42 Lamictal PO 25 mg BID YUKI Administration Lorazepam 2 mg 10/01/17 22:00 Ativan IVP Q6 PRN Seizure activity Metoprolol Tartrate 2.5 mg 09/27/17 10:00 10/02/17 09:31 Lopressor IVP 2.5 mg Q6 YUKI Administration Metoprolol Tartrate 2.5 mg 10/02/17 15:05 Lopressor IVP 10/02/17 15:06 ONCE ONE - Patient Studies Lab Studies: Lab Studies 10/02/17 10/02/17 10/02/17 Range/Units 13:36 13:00 12:16 WBC (4.8-10.8) K/uL RBC (4.40-5.90) Mil/uL Hgb (12.0-18.0) g/dL Hct (35.0-51.0) % MCV (80.0-94.0) fl MCH (27.0-31.0) pg MCHC (33.0-37.0) g/dL RDW (11.5-14.5) % Plt Count (130-400) K/uL pCO2 (35-45) mm/Hg pO2 (80-100) mm/Hg HCO3 (21-28) mmol/L ABG pH (7.35-7.45) ABG Total CO2 (22-28) mmol/L ABG O2 Saturation (95-98) % ABG O2 Content (15-23) ML/dL ABG Base Excess (-2.0-3.0) mmol/L ABG Hemoglobin (11.7-17.4) g/dL ABG Carboxyhemoglobin (0.5-1.5) % POC ABG HHb (Measured) (0.0-5.0) % ABG Methemoglobin (0.0-3.0) % ABG O2 Capacity (16-24) mL/dL Broderick Test A-a O2 Difference mm/Hg Hgb O2 Saturation (95.0-98.0) % Vent Mode Mechanical Rate FiO2 % Tidal Volume PEEP Sodium (132-148) mmol/l Potassium (3.6-5.0) MMOL/L Chloride (98-107) mmol/L Carbon Dioxide (22-30) mmol/L Anion Gap (10-20) BUN (9-20) mg/dl Creatinine (0.8-1.5) mg/dl Est GFR ( Amer) Est GFR (Non-Af Amer) Random Glucose (75-110) mg/dL Calcium (8.4-10.2) mg/dL Phosphorus 3.4 (2.5-4.5) mg/dl NT-Pro-B Natriuret Pep (0-900) pg/ml Urine Color Yellow (YELLOW) Urine Clarity Cloudy (Clear) Urine pH 5.0 (5.0-8.0) Ur Specific Cutler 1.019 (1.003-1.030) Urine Protein 100 (NEGATIVE) mg/dL Urine Glucose (UA) Neg (Normal) mg/dL Urine Ketones Negative (NEGATIVE) mg/dL Urine Blood Moderate (NEGATIVE) Urine Nitrate Negative (NEGATIVE) Urine Bilirubin Negative (NEGATIVE) Urine Urobilinogen 0.2-1.0 (0.2-1.0) mg/dL Ur Leukocyte Esterase Trace (Negative) Crisatl/uL Urine RBC (Auto) 41 H (0-3) /hpf Urine Microscopic WBC 8 H (0-5) /hpf Ur Squamous Epith Cells < 1 (0-5) /hpf Amorphous Sediment Rare H (<OCC) /ul Urine Bacteria Rare (<OCC) Ur Random Creatinine mg/dL U Random Total Protein 43 mg/L Ur Random Sodium mmol/L 10/02/17 10/02/17 10/02/17 Range/Units 11:47 10:21 04:32 WBC (4.8-10.8) K/uL RBC (4.40-5.90) Mil/uL Hgb (12.0-18.0) g/dL Hct (35.0-51.0) % MCV (80.0-94.0) fl MCH (27.0-31.0) pg MCHC (33.0-37.0) g/dL RDW (11.5-14.5) % Plt Count (130-400) K/uL pCO2 50 H (35-45) mm/Hg pO2 126 H (80-100) mm/Hg HCO3 30.3 H (21-28) mmol/L ABG pH 7.42 (7.35-7.45) ABG Total CO2 33.9 H (22-28) mmol/L ABG O2 Saturation 99.2 H (95-98) % ABG O2 Content 13.5 L (15-23) ML/dL ABG Base Excess 6.9 H (-2.0-3.0) mmol/L ABG Hemoglobin 9.7 L (11.7-17.4) g/dL ABG Carboxyhemoglobin 1.4 (0.5-1.5) % POC ABG HHb (Measured) 0.8 (0.0-5.0) % ABG Methemoglobin 0.7 (0.0-3.0) % ABG O2 Capacity 13.6 L (16-24) mL/dL Broderick Test Yes A-a O2 Difference 168.0 mm/Hg Hgb O2 Saturation 97.2 (95.0-98.0) % Vent Mode A/c Mechanical Rate 14 FiO2 50.0 % Tidal Volume 450 PEEP 5 Sodium (132-148) mmol/l Potassium (3.6-5.0) MMOL/L Chloride (98-107) mmol/L Carbon Dioxide (22-30) mmol/L Anion Gap (10-20) BUN (9-20) mg/dl Creatinine (0.8-1.5) mg/dl Est GFR ( Amer) Est GFR (Non-Af Amer) Random Glucose (75-110) mg/dL Calcium (8.4-10.2) mg/dL Phosphorus (2.5-4.5) mg/dl NT-Pro-B Natriuret Pep 03887 H (0-900) pg/ml Urine Color (YELLOW) Urine Clarity (Clear) Urine pH (5.0-8.0) Ur Specific Cutler (1.003-1.030) Urine Protein (NEGATIVE) mg/dL Urine Glucose (UA) (Normal) mg/dL Urine Ketones (NEGATIVE) mg/dL Urine Blood (NEGATIVE) Urine Nitrate (NEGATIVE) Urine Bilirubin (NEGATIVE) Urine Urobilinogen (0.2-1.0) mg/dL Ur Leukocyte Esterase (Negative) Cristal/uL Urine RBC (Auto) (0-3) /hpf Urine Microscopic WBC (0-5) /hpf Ur Squamous Epith Cells (0-5) /hpf Amorphous Sediment (<OCC) /ul Urine Bacteria (<OCC) Ur Random Creatinine 75.2 mg/dL U Random Total Protein mg/L Ur Random Sodium 21 mmol/L 10/02/17 10/02/17 Range/Units 04:20 04:20 WBC 12.4 H (4.8-10.8) K/uL RBC 3.31 L (4.40-5.90) Mil/uL Hgb 9.4 L (12.0-18.0) g/dL Hct 30.2 L (35.0-51.0) % MCV 91.2 (80.0-94.0) fl MCH 28.4 (27.0-31.0) pg MCHC 31.1 L (33.0-37.0) g/dL RDW 19.5 H (11.5-14.5) % Plt Count 183 (130-400) K/uL pCO2 (35-45) mm/Hg pO2 (80-100) mm/Hg HCO3 (21-28) mmol/L ABG pH (7.35-7.45) ABG Total CO2 (22-28) mmol/L ABG O2 Saturation (95-98) % ABG O2 Content (15-23) ML/dL ABG Base Excess (-2.0-3.0) mmol/L ABG Hemoglobin (11.7-17.4) g/dL ABG Carboxyhemoglobin (0.5-1.5) % POC ABG HHb (Measured) (0.0-5.0) % ABG Methemoglobin (0.0-3.0) % ABG O2 Capacity (16-24) mL/dL Broderick Test A-a O2 Difference mm/Hg Hgb O2 Saturation (95.0-98.0) % Vent Mode Mechanical Rate FiO2 % Tidal Volume PEEP Sodium 159 H (132-148) mmol/l Potassium 3.8 (3.6-5.0) MMOL/L Chloride 116 H (98-107) mmol/L Carbon Dioxide 31 H (22-30) mmol/L Anion Gap 16 (10-20) BUN 98 H (9-20) mg/dl Creatinine 3.1 H (0.8-1.5) mg/dl Est GFR ( Amer) 24 Est GFR (Non-Af Amer) 20 Random Glucose 186 H (75-110) mg/dL Calcium 8.0 L (8.4-10.2) mg/dL Phosphorus (2.5-4.5) mg/dl NT-Pro-B Natriuret Pep (0-900) pg/ml Urine Color (YELLOW) Urine Clarity (Clear) Urine pH (5.0-8.0) Ur Specific Cutler (1.003-1.030) Urine Protein (NEGATIVE) mg/dL Urine Glucose (UA) (Normal) mg/dL Urine Ketones (NEGATIVE) mg/dL Urine Blood (NEGATIVE) Urine Nitrate (NEGATIVE) Urine Bilirubin (NEGATIVE) Urine Urobilinogen (0.2-1.0) mg/dL Ur Leukocyte Esterase (Negative) Cristal/uL Urine RBC (Auto) (0-3) /hpf Urine Microscopic WBC (0-5) /hpf Ur Squamous Epith Cells (0-5) /hpf Amorphous Sediment (<OCC) /ul Urine Bacteria (<OCC) Ur Random Creatinine mg/dL U Random Total Protein mg/L Ur Random Sodium mmol/L Laboratory Results - last 24 hr 10/02/17 10/02/17 10/02/17 04:20 04:20 04:32 WBC 12.4 H RBC 3.31 L Hgb 9.4 L Hct 30.2 L MCV 91.2 MCH 28.4 MCHC 31.1 L RDW 19.5 H Plt Count 183 pCO2 50 H pO2 126 H HCO3 30.3 H ABG pH 7.42 ABG Total CO2 33.9 H ABG O2 Saturation 99.2 H ABG O2 Content 13.5 L ABG Base Excess 6.9 H ABG Hemoglobin 9.7 L ABG Carboxyhemoglobin 1.4 POC ABG HHb (Measured) 0.8 ABG Methemoglobin 0.7 ABG O2 Capacity 13.6 L Broderick Test Yes A-a O2 Difference 168.0 Hgb O2 Saturation 97.2 Vent Mode A/c Mechanical Rate 14 FiO2 50.0 Tidal Volume 450 PEEP 5 Sodium 159 H Potassium 3.8 Chloride 116 H Carbon Dioxide 31 H Anion Gap 16 BUN 98 H Creatinine 3.1 H Est GFR ( Amer) 24 Est GFR (Non-Af Amer) 20 Random Glucose 186 H Calcium 8.0 L Phosphorus NT-Pro-B Natriuret Pep Urine Color Urine Clarity Urine pH Ur Specific Cutler Urine Protein Urine Glucose (UA) Urine Ketones Urine Blood Urine Nitrate Urine Bilirubin Urine Urobilinogen Ur Leukocyte Esterase Urine RBC (Auto) Urine Microscopic WBC Ur Squamous Epith Cells Amorphous Sediment Urine Bacteria Ur Random Creatinine U Random Total Protein Ur Random Sodium 10/02/17 10/02/17 10/02/17 10:21 11:47 12:16 WBC RBC Hgb Hct MCV MCH MCHC RDW Plt Count pCO2 pO2 HCO3 ABG pH ABG Total CO2 ABG O2 Saturation ABG O2 Content ABG Base Excess ABG Hemoglobin ABG Carboxyhemoglobin POC ABG HHb (Measured) ABG Methemoglobin ABG O2 Capacity Broderick Test A-a O2 Difference Hgb O2 Saturation Vent Mode Mechanical Rate FiO2 Tidal Volume PEEP Sodium Potassium Chloride Carbon Dioxide Anion Gap BUN Creatinine Est GFR ( Amer) Est GFR (Non-Af Amer) Random Glucose Calcium Phosphorus 3.4 NT-Pro-B Natriuret Pep 38449 H Urine Color Urine Clarity Urine pH Ur Specific Cutler Urine Protein Urine Glucose (UA) Urine Ketones Urine Blood Urine Nitrate Urine Bilirubin Urine Urobilinogen Ur Leukocyte Esterase Urine RBC (Auto) Urine Microscopic WBC Ur Squamous Epith Cells Amorphous Sediment Urine Bacteria Ur Random Creatinine 75.2 U Random Total Protein Ur Random Sodium 21 10/02/17 10/02/17 13:00 13:36 WBC RBC Hgb Hct MCV MCH MCHC RDW Plt Count pCO2 pO2 HCO3 ABG pH ABG Total CO2 ABG O2 Saturation ABG O2 Content ABG Base Excess ABG Hemoglobin ABG Carboxyhemoglobin POC ABG HHb (Measured) ABG Methemoglobin ABG O2 Capacity Broderick Test A-a O2 Difference Hgb O2 Saturation Vent Mode Mechanical Rate FiO2 Tidal Volume PEEP Sodium Potassium Chloride Carbon Dioxide Anion Gap BUN Creatinine Est GFR ( Amer) Est GFR (Non-Af Amer) Random Glucose Calcium Phosphorus NT-Pro-B Natriuret Pep Urine Color Yellow Urine Clarity Cloudy Urine pH 5.0 Ur Specific Cutler 1.019 Urine Protein 100 Urine Glucose (UA) Neg Urine Ketones Negative Urine Blood Moderate Urine Nitrate Negative Urine Bilirubin Negative Urine Urobilinogen 0.2-1.0 Ur Leukocyte Esterase Trace Urine RBC (Auto) 41 H Urine Microscopic WBC 8 H Ur Squamous Epith Cells < 1 Amorphous Sediment Rare H Urine Bacteria Rare Ur Random Creatinine U Random Total Protein 43 Ur Random Sodium Fingerstick Blood Sugar Results: 83 Review of Systems - Review of Systems Systems not reviewed;Unavailable: Altered Mental Status Critical Care Progress Note - Ventilator Checklist Head of Bed 30 Degrees: Yes Daily Sedation Vacation: Yes Daily Assessment of Readiness to Wean: Yes Daily Spontaneous Breathing Trial: Yes PUD Prophalyxis: Yes DVT Prophylaxis: Yes Oral Care with Chlorhexidine Gluconate {CHG}: Yes - Vent Settings MODE:: ASSIST CONTROL TIDAL VOLUME:: 450 RESP RATE:: 14 FIO2:: 40 PEEP:: 5 - Extremities/Vascular Does the Patient have a Central Venous Catheter?: Yes Insertion Site: RUE PICC Does the Patient need a Central Venous Catheter?: Yes Does the Patient have a Wang Catheter?: Yes Does the Patient need a Wang Catheter?: Yes Catheter Insertion Criteria: Need for accurate measurement of output in critically ill patient - Restraints Justification for Restraints: High risk for self extubation - Prophylaxis GI Prophylaxis GI: PPI - Prophylaxis DVT Prophylaxis DVT: Heparin SQ
--- NOTE | 2017-10-02 16:14 | RAD ---
HISTORY: ETT position [id number] COMPARISON: 10/02/2017 at 4:48 a.m. FINDINGS: LUNGS: Extensive opacity lower half left lung. No right-sided opacity. PLEURA: Probable small left pleural effusion. No right pleural effusion. Right basilar pleural pigtail catheter. No pneumothorax. CARDIOVASCULAR: Normal heart size. Permanent pacemaker. l endotracheal tube tip approximately 4.5 cm above tracheal apoorva. Nasogastric tube unchanged. Right PICC catheter. OSSEOUS STRUCTURES: No significant abnormalities. VISUALIZED UPPER ABDOMEN: Normal. OTHER FINDINGS: None. IMPRESSION: Extensive opacity lower left lung with small left pleural effusion. Right pleural pigtail catheter peer ET tube appropriately positioned. Lines and tubes otherwise unchanged.
--- NOTE | 2017-10-02 17:42 | CP.PCM.PN ---
Subjective - Date & Time of Evaluation Date of Evaluation: 10/02/17 Time of Evaluation: 11:00 - Subjective Subjective: F/U Respiratory Failure / PNA. Pt obtunded, intubated Objective - Vital Signs/Intake and Output Vital Signs (last 24 hours): Temp Pulse Resp BP Pulse Ox 98.6 F 113 H 31 H 112/57 L 100 10/02/17 16:00 10/02/17 17:03 10/02/17 15:08 10/02/17 17:03 10/02/17 16:00 Intake and Output: 10/02/17 10/02/17 06:59 18:59 Intake Total 860 382 Output Total 1680 Balance -820 382 - Medications Medications: Current Medications Acetaminophen (Tylenol 650mg/20.3ml Solution Ud) 650 mg PO Q6 PRN PRN Reason: fever Last Admin: 10/02/17 09:45 Dose: 650 mg Albuterol/Ipratropium (Duoneb 3 Mg/0.5 Mg (3 Ml) Ud) 3 ml INH RQ4 [facility] Last Admin: 10/02/17 11:48 Dose: 3 ml Amiodarone HCl (Cordarone) 200 mg PO BID [facility] Last Admin: 10/02/17 17:03 Dose: 200 mg Calcium Carbonate (Oscal) 500 mg PO BIDWM [facility] Last Admin: 10/02/17 17:03 Dose: 500 mg Ergocalciferol (Drisdol 50,000 Intl Units Cap) 1 cap PO Q7D [facility] Last Admin: 09/26/17 01:20 Dose: Not Given Heparin Sodium (Porcine) (Heparin) 5,000 units SC Q12 YUKI PRN Reason: Protocol Last Admin: 10/02/17 09:30 Dose: 5,000 units Vancomycin HCl 1 gm/ Sodium (Chloride) 250 mls @ 250 mls/hr IVPB DAILY YUKI PRN Reason: Protocol Last Admin: 10/02/17 09:56 Dose: Not Given Piperacillin Sod/Tazobactam Sod (Zosyn 2.25 Gm Iv Premix) 2.25 gm in 50 mls @ 50 mls/hr IVPB Q6 YUKI PRN Reason: Protocol Last Admin: 10/02/17 15:41 Dose: 50 mls/hr Lamotrigine (Lamictal) 25 mg PO BID [facility] Last Admin: 10/02/17 16:05 Dose: 25 mg Lorazepam (Ativan) 2 mg IVP Q6 PRN PRN Reason: Seizure activity Metoprolol Tartrate (Lopressor) 2.5 mg IVP Q6 YUKI Last Admin: 10/02/17 09:31 Dose: 2.5 mg - Labs Labs: 10/02/17 04:20 10/02/17 04:20 PT 22.5 Seconds (9.8-13.1) H 10/01/17 04:35 INR 2.0 (0.9-1.2) H 10/01/17 04:35 APTT 32.3 Seconds (25.6-37.1) 09/29/17 05:30 - Constitutional Appears: Chronically Ill - Head Exam Head Exam: NORMAL INSPECTION - Eye Exam Eye Exam: PERRL - ENT Exam Additional comments: Intubated, stage II ulcer on bridge of nose. - Neck Exam Neck Exam: Normal Inspection - Respiratory Exam Respiratory Exam: Decreased Breath Sounds (at bases), Rhonchi (scattered) Additional comments: R lateral pigtail - Extremities Exam Additional comments: Edema U/E. - Back Exam Additional comments: Sacral maceration. - Neurological Exam Additional comments: Lethargic, intubated - Skin Skin Exam: Warm Assessment and Plan (1) Acute respiratory failure with hypoxia Status: Acute (2) Aspiration pneumonia Status: Acute (3) Altered mental status Status: Acute (4) Pleural effusion, bilateral Status: Acute (5) Hx of seizure disorder Status: Chronic (6) A-fib Status: Chronic (7) Diastolic CHF, acute on chronic Status: Acute (8) CANDELARIA (acute kidney injury) Status: Acute (9) HTN (hypertension) Status: Chronic (10) S/P bronchoscopy Status: Acute - Assessment and Plan (Free Text) Plan: Pt had pigtail insertion yesterday, CXR shows R lung clear, increased fluid in the Left, IR to asses L Pleural effusion , Na high , BUN and Creat high , Renal java consultant advised NATHANAEL sol , T 102 , ID to evaluate Atb Tx ICU Time: 42 min.
--- NOTE | 2017-10-02 21:24 | CP.PCM.PN ---
Subjective - Date & Time of Evaluation Date of Evaluation: 10/02/17 Time of Evaluation: 18:00 - Subjective Subjective: Patient has High serum Sodium, Nephrology consult is called and he has Pre renal Renal Insufficiency due to dehydration. He is still intubated suffering from ARDS and Bilateral Pleural effusion with Right Pig Tail Chest Catheter that was replaced well yesterday. No Seizures. Objective - Vital Signs/Intake and Output Vital Signs (last 24 hours): Temp Pulse Resp BP Pulse Ox 100.7 F H 123 H 14 111/56 L 100 10/02/17 20:45 10/02/17 20:00 10/02/17 20:00 10/02/17 20:00 10/02/17 20:00 Intake and Output: 10/02/17 10/03/17 18:59 06:59 Intake Total 1182 300 Output Total 850 Balance 332 300 - Medications Medications: Current Medications Acetaminophen (Tylenol 650mg/20.3ml Solution Ud) 650 mg PO Q6 PRN PRN Reason: fever Last Admin: 10/02/17 20:45 Dose: 650 mg Albuterol/Ipratropium (Duoneb 3 Mg/0.5 Mg (3 Ml) Ud) 3 ml INH RQ4 [facility] Last Admin: 10/02/17 19:45 Dose: 3 ml Amiodarone HCl (Cordarone) 200 mg PO BID [facility] Last Admin: 10/02/17 17:03 Dose: 200 mg Calcium Carbonate (Oscal) 500 mg PO BIDWM [facility] Last Admin: 10/02/17 17:03 Dose: 500 mg Ergocalciferol (Drisdol 50,000 Intl Units Cap) 1 cap PO Q7D [facility] Last Admin: 09/26/17 01:20 Dose: Not Given Heparin Sodium (Porcine) (Heparin) 5,000 units SC Q12 YUKI PRN Reason: Protocol Last Admin: 10/02/17 20:51 Dose: 5,000 units Vancomycin HCl 1 gm/ Sodium (Chloride) 250 mls @ 250 mls/hr IVPB DAILY YUKI PRN Reason: Protocol Last Admin: 10/02/17 09:56 Dose: Not Given Piperacillin Sod/Tazobactam Sod (Zosyn 2.25 Gm Iv Premix) 2.25 gm in 50 mls @ 50 mls/hr IVPB Q6 YUKI PRN Reason: Protocol Last Admin: 10/02/17 15:41 Dose: 50 mls/hr Lamotrigine (Lamictal) 25 mg PO BID YUKI Last Admin: 10/02/17 16:05 Dose: 25 mg Lorazepam (Ativan) 2 mg IVP Q6 PRN PRN Reason: Seizure activity Metoprolol Tartrate (Lopressor) 2.5 mg IVP Q6 YUKI Last Admin: 10/02/17 18:23 Dose: 2.5 mg - Labs Labs: 10/02/17 04:20 10/02/17 04:20 PT 22.5 Seconds (9.8-13.1) H 10/01/17 04:35 INR 2.0 (0.9-1.2) H 10/01/17 04:35 APTT 32.3 Seconds (25.6-37.1) 09/29/17 05:30 Assessment and Plan (1) CANDELARIA (acute kidney injury) Status: Acute (2) Acute respiratory failure Status: Acute (3) Altered mental status Status: Acute (4) Hypothermia Status: Acute (5) Pleural effusion, bilateral Status: Acute (6) Pneumonia Status: Acute (7) Seizure disorder Status: Suspected (8) Encephalopathy Status: Acute
[2017-10-02] MEDS: Ergocalciferol 50,000 Intl Units Cap PO SCH (23:16)
[2017-10-03] MEDS: Piperacill/Tazo 2.25gm in Dex 2.25 GM/50 ML BAG IVPB SCH ×4 (04:38→22:00)
[2017-10-03] MEDS: Metoprolol 1 mg/ml Inj IVP SCH ×4 (04:38→22:01)
[2017-10-03] MEDS: Albuterol-Ipratrop 3 mg / 0.5 (3 ml) UD INH SCH ×6 (04:50→23:40)
[2017-10-03 05:27] LABS: ABG ALLEN TEST YES; ARTERIAL BLOOD GAS HCO3 30.4 mmol/L (21-28); ARTERIAL BLOOD GAS HEMOGLOBIN 9.1 g/dL (11.7-17.4); ARTERIAL BLOOD GAS O2 CAPACITY 12.8 mL/dL (16-24); ARTERIAL BLOOD GAS O2 CONTENT 12.7 ML/dL (15-23); ARTERIAL BLOOD GAS O2 SAT 99.6 % (95-98); ARTERIAL BLOOD GAS PCO2 53 mm/Hg (35-45); ARTERIAL BLOOD GAS PO2 123 mm/Hg (80-100); ARTERIAL BLOOD GAS TCO2 34.4 mmol/L (22-28)
[2017-10-03 05:52] LABS: HEMOGLOBIN 9.1 g/dL (12.0-18.0); MEAN CELL VOLUME 91.7 fl (80.0-94.0); MEAN CORPUSCULAR HEMOGLOBIN 28.9 pg (27.0-31.0); MEAN CORPUSCULAR HGB CONC 31.5 g/dL (33.0-37.0); RBC 3.14 Mil/uL (4.40-5.90); RED CELL DISTRIBUTION WIDTH 19.4 % (11.5-14.5); WHITE BLOOD COUNT 11.9 K/uL (4.8-10.8)
[2017-10-03 06:16] LABS: INR 2.3 (0.9-1.2); PARTIAL THROMBOPLASTIN TIME 37.4 Seconds (25.6-37.1); PROTHROMBIN TIME 25.8 Seconds (9.8-13.1)
[2017-10-03 06:43] LABS: ALB/GLOB RATIO 0.8 (1.0-2.1); ALBUMIN 2.7 g/dL (3.5-5.0)
--- NOTE | 2017-10-03 07:34 | CP.CCUPN ---
CCU Subjective - Physician Review Subjective (Free Text): ETT replaced and re-positioned with new 8.0mm ETT ( had 9.0mm ETT in) yesterday with Anesthesiologist assistance. ETT cuff found to be sitting and acting as an LMA in lower oropharnyx. CXR now shows acceptable position of distal ETT tip visualizable above apoorva. No new changes nor improvement in overall mental status. Lasix drip stopped yesterday. He remains in rapid A Fib, temps down, but Tmax over last 24H was 102F. Other vitals and I/O's reviewed. He is now febrile to 102F now and spiking temps remaining at 101.8F. Urine output approx 470 ml overnight, off lasix drip. ROS: Unobtainable due to lethargy. No other pertinent negs or positives on 10+ system review. PMSFH: All other Nursing and physician documentation reviewed to date; no new pertinent info noted relevant to current medical problems. CXR: ETT position ok above apoorva, R pigtail catheter intact, no PTX, R lung looks clear. Left basilar opacification persists (my interp). IMPRESSION / MAJOR PROBLEMS NOW: 1. Acute Resp ( Hypoxemic) failure 2 bilat effusions, and compressive atelectasis, unclear if any superimposed pneumonitic process. 2. Encephalopathy: etiology unclear, ?? metabolic vs cryptogenic seizures vs ?? CVA?? 3. Chronic A Fib, presently with controlled VR 4. r/o Cardiomyopathy vs Diastolic Dysfx CHF- non-invasive TTE shows preserved EF. 5. Azotemia, CKD III ( Bun/Cr was 36/1.5 at the time of last hospital discharge) 6. Warfarin induced-coagulopathy PLAN: 1. Day # 6 on MV. Recurrence of left effusion noted, has been deemed too small to tap. FiO2 requirements have not increased. No new organisms isolated from Sputum cultures. 2. He remains on Zosyn, Vanco has been held due to high trough levels. 3. Free water started yesterday, ongoing gradual reduction in Na levels. 4. INR elevation noted, will need correction again for any anticipated procedure. 5. IVP Lopressor given in 2.5mg aliquots for VR control. 6. Full Code status remains. CCU Objective - Vital Signs / Intake & Output Vital Signs (Last 4 hours): Vital Signs Temp Pulse Resp BP Pulse Ox 10/03/17 06:00 118 H 14 116/69 100 10/03/17 04:38 123 H 111/66 10/03/17 04:00 99.0 F 121 H 14 110/66 100 Intake and Output (Last 8hrs): Intake & Output 10/02/17 10/03/17 10/03/17 22:59 06:59 14:59 Intake Total 1500 1050 Output Total 850 570 Balance 650 480 Intake: Intake, Piggyback 100 50 Tube Feeding 800 400 Free Water Flush 600 600 Output: Drainage 350 120 Right Lateral Chest 350 120 Urine 500 450 Urethral (Wang) 500 450 Other: # Bowel Movements 0 1 - Physical Exam Head: Positive for: Atraumatic, Normocephalic Pupils: Positive for: PERRL, Sluggish Extroacular Muscles: Positive for: EOMI Conjunctiva: Positive for: Normal. Negative for: Icteric Ears: Positive for: Normal Mouth: Positive for: Moist Mucous Membranes Pharnyx: Negative for: ERYTHEMA Neck: Positive for: Normal Range of Motion. Negative for: JVD Respiratory/Chest: Positive for: Decreased Breath Sounds, Rhonchi (upper airway rhonchi), Tachypneic. Negative for: Accessory Muscle Use, Wheezes Cardiovascular: Positive for: Irregular Rhythm, Peripheal Pulses Present. Negative for: Murmurs, Normal S1, S2, Tachycardic, Bradycardic Abdomen: Positive for: Normal Bowel Sounds. Negative for: Tenderness, Distention, Peritoneal Signs Upper Extremity: Positive for: Edema Lower Extremity: Positive for: Edema, NORMAL PULSES. Negative for: CALF TENDERNESS, Cyanosis Neurological: Positive for: Other (withdraws to deep pain) Skin: Positive for: Warm. Negative for: Rashes Psychiatric: Positive for: Lethargic - Medications Active Medications: Active Medications Generic Name Dose Route Start Last Admin Trade Name Freq PRN Reason Stop Dose Admin Acetaminophen 650 mg 09/29/17 13:49 10/02/17 20:45 Tylenol 650mg/20.3ml Solution Ud PO 650 mg Q6 PRN Administration fever Albuterol/Ipratropium 3 ml 09/28/17 12:00 10/03/17 04:50 Duoneb 3 Mg/0.5 Mg (3 Ml) Ud INH 3 ml RQ4 YUKI Administration Amiodarone HCl 200 mg 09/29/17 17:00 10/02/17 17:03 Cordarone PO 200 mg BID YUKI Administration Calcium Carbonate 500 mg 09/26/17 08:00 10/02/17 17:03 Oscal PO 500 mg BIDWM YUKI Administration Ergocalciferol 1 cap 09/25/17 23:45 10/02/17 23:16 Drisdol 50,000 Intl Units Cap PO 1 cap Q7D YUKI Administration Piperacillin Sod/Tazobactam Sod 2.25 gm in 50 mls @ 50 mls/hr 09/29/17 22:00 10/03/17 04:38 Zosyn 2.25 Gm Iv Premix IVPB 50 mls/hr Q6 YUKI Administration Protocol Lamotrigine 25 mg 09/23/17 18:15 10/02/17 16:05 Lamictal PO 25 mg BID YUKI Administration Lorazepam 2 mg 10/01/17 22:00 Ativan IVP Q6 PRN Seizure activity Metoprolol Tartrate 2.5 mg 09/27/17 10:00 10/03/17 04:38 Lopressor IVP 2.5 mg Q6 YUKI Administration - Patient Studies Lab Studies: Lab Studies 10/03/17 10/03/17 10/03/17 Range/Units 05:19 04:20 04:20 WBC (4.8-10.8) K/uL RBC (4.40-5.90) Mil/uL Hgb (12.0-18.0) g/dL Hct (35.0-51.0) % MCV (80.0-94.0) fl MCH (27.0-31.0) pg MCHC (33.0-37.0) g/dL RDW (11.5-14.5) % Plt Count (130-400) K/uL PT 25.8 H (9.8-13.1) Seconds INR 2.3 H (0.9-1.2) APTT 37.4 H (25.6-37.1) Seconds pCO2 53 H (35-45) mm/Hg pO2 123 H (80-100) mm/Hg HCO3 30.4 H (21-28) mmol/L ABG pH 7.40 (7.35-7.45) ABG Total CO2 34.4 H (22-28) mmol/L ABG O2 Saturation 99.6 H (95-98) % ABG O2 Content 12.7 L (15-23) ML/dL ABG Base Excess 7.0 H (-2.0-3.0) mmol/L ABG Hemoglobin 9.1 L (11.7-17.4) g/dL ABG Carboxyhemoglobin 1.6 H (0.5-1.5) % POC ABG HHb (Measured) 0.4 (0.0-5.0) % ABG Methemoglobin 0.7 (0.0-3.0) % ABG O2 Capacity 12.8 L (16-24) mL/dL Broderick Test Yes A-a O2 Difference 167.0 mm/Hg Hgb O2 Saturation 97.3 (95.0-98.0) % Vent Mode A/c Mechanical Rate 14 FiO2 50.0 % Tidal Volume 450 PEEP 5 Sodium (132-148) mmol/l Potassium (3.6-5.0) MMOL/L Chloride (98-107) mmol/L Carbon Dioxide (22-30) mmol/L Anion Gap (10-20) BUN (9-20) mg/dl Creatinine (0.8-1.5) mg/dl Est GFR ( Amer) Est GFR (Non-Af Amer) Random Glucose (75-110) mg/dL Calcium (8.4-10.2) mg/dL Phosphorus (2.5-4.5) mg/dl Magnesium (1.6-2.3) MG/DL Total Bilirubin (0.2-1.3) mg/dl AST (17-59) U/L ALT (21-72) U/L Alkaline Phosphatase (38-126) U/L NT-Pro-B Natriuret Pep (0-900) pg/ml Total Protein (6.3-8.2) G/DL Albumin (3.5-5.0) g/dL Globulin (2.2-3.9) gm/dL Albumin/Globulin Ratio (1.0-2.1) Urine Color (YELLOW) Urine Clarity (Clear) Urine pH (5.0-8.0) Ur Specific Parks (1.003-1.030) Urine Protein (NEGATIVE) mg/dL Urine Glucose (UA) (Normal) mg/dL Urine Ketones (NEGATIVE) mg/dL Urine Blood (NEGATIVE) Urine Nitrate (NEGATIVE) Urine Bilirubin (NEGATIVE) Urine Urobilinogen (0.2-1.0) mg/dL Ur Leukocyte Esterase (Negative) Cristal/uL Urine RBC (Auto) (0-3) /hpf Urine Microscopic WBC (0-5) /hpf Ur Squamous Epith Cells (0-5) /hpf Amorphous Sediment (<OCC) /ul Urine Bacteria (<OCC) Ur Random Creatinine mg/dL U Random Total Protein mg/L Ur Random Sodium mmol/L Vancomycin Trough 14.8 H (5.0-10.0) ug/mL 10/03/17 10/03/17 10/02/17 Range/Units 04:20 04:20 13:36 WBC 11.9 H (4.8-10.8) K/uL RBC 3.14 L (4.40-5.90) Mil/uL Hgb 9.1 L (12.0-18.0) g/dL Hct 28.8 L (35.0-51.0) % MCV 91.7 (80.0-94.0) fl MCH 28.9 (27.0-31.0) pg MCHC 31.5 L (33.0-37.0) g/dL RDW 19.4 H (11.5-14.5) % Plt Count 197 (130-400) K/uL PT (9.8-13.1) Seconds INR (0.9-1.2) APTT (25.6-37.1) Seconds pCO2 (35-45) mm/Hg pO2 (80-100) mm/Hg HCO3 (21-28) mmol/L ABG pH (7.35-7.45) ABG Total CO2 (22-28) mmol/L ABG O2 Saturation (95-98) % ABG O2 Content (15-23) ML/dL ABG Base Excess (-2.0-3.0) mmol/L ABG Hemoglobin (11.7-17.4) g/dL ABG Carboxyhemoglobin (0.5-1.5) % POC ABG HHb (Measured) (0.0-5.0) % ABG Methemoglobin (0.0-3.0) % ABG O2 Capacity (16-24) mL/dL Broderick Test A-a O2 Difference mm/Hg Hgb O2 Saturation (95.0-98.0) % Vent Mode Mechanical Rate FiO2 % Tidal Volume PEEP Sodium 159 H (132-148) mmol/l Potassium 4.4 (3.6-5.0) MMOL/L Chloride 116 H (98-107) mmol/L Carbon Dioxide 33 H (22-30) mmol/L Anion Gap 14 (10-20) BUN 114 H* (9-20) mg/dl Creatinine 3.4 H (0.8-1.5) mg/dl Est GFR ( Amer) 21 Est GFR (Non-Af Amer) 18 Random Glucose 163 H (75-110) mg/dL Calcium 8.0 L (8.4-10.2) mg/dL Phosphorus 4.1 (2.5-4.5) mg/dl Magnesium 2.6 H (1.6-2.3) MG/DL Total Bilirubin 0.4 (0.2-1.3) mg/dl AST 41 (17-59) U/L ALT 29 (21-72) U/L Alkaline Phosphatase 61 (38-126) U/L NT-Pro-B Natriuret Pep (0-900) pg/ml Total Protein 5.9 L (6.3-8.2) G/DL Albumin 2.7 L (3.5-5.0) g/dL Globulin 3.3 (2.2-3.9) gm/dL Albumin/Globulin Ratio 0.8 L (1.0-2.1) Urine Color (YELLOW) Urine Clarity (Clear) Urine pH (5.0-8.0) Ur Specific Parks (1.003-1.030) Urine Protein (NEGATIVE) mg/dL Urine Glucose (UA) (Normal) mg/dL Urine Ketones (NEGATIVE) mg/dL Urine Blood (NEGATIVE) Urine Nitrate (NEGATIVE) Urine Bilirubin (NEGATIVE) Urine Urobilinogen (0.2-1.0) mg/dL Ur Leukocyte Esterase (Negative) Cristal/uL Urine RBC (Auto) (0-3) /hpf Urine Microscopic WBC (0-5) /hpf Ur Squamous Epith Cells (0-5) /hpf Amorphous Sediment (<OCC) /ul Urine Bacteria (<OCC) Ur Random Creatinine mg/dL U Random Total Protein 43 mg/L Ur Random Sodium mmol/L Vancomycin Trough (5.0-10.0) ug/mL 10/02/17 10/02/17 10/02/17 Range/Units 13:00 12:16 11:47 WBC (4.8-10.8) K/uL RBC (4.40-5.90) Mil/uL Hgb (12.0-18.0) g/dL Hct (35.0-51.0) % MCV (80.0-94.0) fl MCH (27.0-31.0) pg MCHC (33.0-37.0) g/dL RDW (11.5-14.5) % Plt Count (130-400) K/uL PT (9.8-13.1) Seconds INR (0.9-1.2) APTT (25.6-37.1) Seconds pCO2 (35-45) mm/Hg pO2 (80-100) mm/Hg HCO3 (21-28) mmol/L ABG pH (7.35-7.45) ABG Total CO2 (22-28) mmol/L ABG O2 Saturation (95-98) % ABG O2 Content (15-23) ML/dL ABG Base Excess (-2.0-3.0) mmol/L ABG Hemoglobin (11.7-17.4) g/dL ABG Carboxyhemoglobin (0.5-1.5) % POC ABG HHb (Measured) (0.0-5.0) % ABG Methemoglobin (0.0-3.0) % ABG O2 Capacity (16-24) mL/dL Broderick Test A-a O2 Difference mm/Hg Hgb O2 Saturation (95.0-98.0) % Vent Mode Mechanical Rate FiO2 % Tidal Volume PEEP Sodium (132-148) mmol/l Potassium (3.6-5.0) MMOL/L Chloride (98-107) mmol/L Carbon Dioxide (22-30) mmol/L Anion Gap (10-20) BUN (9-20) mg/dl Creatinine (0.8-1.5) mg/dl Est GFR ( Amer) Est GFR (Non-Af Amer) Random Glucose (75-110) mg/dL Calcium (8.4-10.2) mg/dL Phosphorus 3.4 (2.5-4.5) mg/dl Magnesium (1.6-2.3) MG/DL Total Bilirubin (0.2-1.3) mg/dl AST (17-59) U/L ALT (21-72) U/L Alkaline Phosphatase (38-126) U/L NT-Pro-B Natriuret Pep (0-900) pg/ml Total Protein (6.3-8.2) G/DL Albumin (3.5-5.0) g/dL Globulin (2.2-3.9) gm/dL Albumin/Globulin Ratio (1.0-2.1) Urine Color Yellow (YELLOW) Urine Clarity Cloudy (Clear) Urine pH 5.0 (5.0-8.0) Ur Specific Parks 1.019 (1.003-1.030) Urine Protein 100 (NEGATIVE) mg/dL Urine Glucose (UA) Neg (Normal) mg/dL Urine Ketones Negative (NEGATIVE) mg/dL Urine Blood Moderate (NEGATIVE) Urine Nitrate Negative (NEGATIVE) Urine Bilirubin Negative (NEGATIVE) Urine Urobilinogen 0.2-1.0 (0.2-1.0) mg/dL Ur Leukocyte Esterase Trace (Negative) Cristal/uL Urine RBC (Auto) 41 H (0-3) /hpf Urine Microscopic WBC 8 H (0-5) /hpf Ur Squamous Epith Cells < 1 (0-5) /hpf Amorphous Sediment Rare H (<OCC) /ul Urine Bacteria Rare (<OCC) Ur Random Creatinine 75.2 mg/dL U Random Total Protein mg/L Ur Random Sodium 21 mmol/L Vancomycin Trough (5.0-10.0) ug/mL 10/02/17 Range/Units 10:21 WBC (4.8-10.8) K/uL RBC (4.40-5.90) Mil/uL Hgb (12.0-18.0) g/dL Hct (35.0-51.0) % MCV (80.0-94.0) fl MCH (27.0-31.0) pg MCHC (33.0-37.0) g/dL RDW (11.5-14.5) % Plt Count (130-400) K/uL PT (9.8-13.1) Seconds INR (0.9-1.2) APTT (25.6-37.1) Seconds pCO2 (35-45) mm/Hg pO2 (80-100) mm/Hg HCO3 (21-28) mmol/L ABG pH (7.35-7.45) ABG Total CO2 (22-28) mmol/L ABG O2 Saturation (95-98) % ABG O2 Content (15-23) ML/dL ABG Base Excess (-2.0-3.0) mmol/L ABG Hemoglobin (11.7-17.4) g/dL ABG Carboxyhemoglobin (0.5-1.5) % POC ABG HHb (Measured) (0.0-5.0) % ABG Methemoglobin (0.0-3.0) % ABG O2 Capacity (16-24) mL/dL Broderick Test A-a O2 Difference mm/Hg Hgb O2 Saturation (95.0-98.0) % Vent Mode Mechanical Rate FiO2 % Tidal Volume PEEP Sodium (132-148) mmol/l Potassium (3.6-5.0) MMOL/L Chloride (98-107) mmol/L Carbon Dioxide (22-30) mmol/L Anion Gap (10-20) BUN (9-20) mg/dl Creatinine (0.8-1.5) mg/dl Est GFR ( Amer) Est GFR (Non-Af Amer) Random Glucose (75-110) mg/dL Calcium (8.4-10.2) mg/dL Phosphorus (2.5-4.5) mg/dl Magnesium (1.6-2.3) MG/DL Total Bilirubin (0.2-1.3) mg/dl AST (17-59) U/L ALT (21-72) U/L Alkaline Phosphatase (38-126) U/L NT-Pro-B Natriuret Pep 35212 H (0-900) pg/ml Total Protein (6.3-8.2) G/DL Albumin (3.5-5.0) g/dL Globulin (2.2-3.9) gm/dL Albumin/Globulin Ratio (1.0-2.1) Urine Color (YELLOW) Urine Clarity (Clear) Urine pH (5.0-8.0) Ur Specific Parks (1.003-1.030) Urine Protein (NEGATIVE) mg/dL Urine Glucose (UA) (Normal) mg/dL Urine Ketones (NEGATIVE) mg/dL Urine Blood (NEGATIVE) Urine Nitrate (NEGATIVE) Urine Bilirubin (NEGATIVE) Urine Urobilinogen (0.2-1.0) mg/dL Ur Leukocyte Esterase (Negative) Cristal/uL Urine RBC (Auto) (0-3) /hpf Urine Microscopic WBC (0-5) /hpf Ur Squamous Epith Cells (0-5) /hpf Amorphous Sediment (<OCC) /ul Urine Bacteria (<OCC) Ur Random Creatinine mg/dL U Random Total Protein mg/L Ur Random Sodium mmol/L Vancomycin Trough (5.0-10.0) ug/mL Laboratory Results - last 24 hr 10/02/17 10/02/17 10/02/17 10:21 11:47 12:16 WBC RBC Hgb Hct MCV MCH MCHC RDW Plt Count PT INR APTT pCO2 pO2 HCO3 ABG pH ABG Total CO2 ABG O2 Saturation ABG O2 Content ABG Base Excess ABG Hemoglobin ABG Carboxyhemoglobin POC ABG HHb (Measured) ABG Methemoglobin ABG O2 Capacity Broderick Test A-a O2 Difference Hgb O2 Saturation Vent Mode Mechanical Rate FiO2 Tidal Volume PEEP Sodium Potassium Chloride Carbon Dioxide Anion Gap BUN Creatinine Est GFR ( Amer) Est GFR (Non-Af Amer) Random Glucose Calcium Phosphorus 3.4 Magnesium Total Bilirubin AST ALT Alkaline Phosphatase NT-Pro-B Natriuret Pep 57364 H Total Protein Albumin Globulin Albumin/Globulin Ratio Urine Color Urine Clarity Urine pH Ur Specific Parks Urine Protein Urine Glucose (UA) Urine Ketones Urine Blood Urine Nitrate Urine Bilirubin Urine Urobilinogen Ur Leukocyte Esterase Urine RBC (Auto) Urine Microscopic WBC Ur Squamous Epith Cells Amorphous Sediment Urine Bacteria Ur Random Creatinine 75.2 U Random Total Protein Ur Random Sodium 21 Vancomycin Trough 10/02/17 10/02/17 10/03/17 13:00 13:36 04:20 WBC 11.9 H RBC 3.14 L Hgb 9.1 L Hct 28.8 L MCV 91.7 MCH 28.9 MCHC 31.5 L RDW 19.4 H Plt Count 197 PT INR APTT pCO2 pO2 HCO3 ABG pH ABG Total CO2 ABG O2 Saturation ABG O2 Content ABG Base Excess ABG Hemoglobin ABG Carboxyhemoglobin POC ABG HHb (Measured) ABG Methemoglobin ABG O2 Capacity Broderick Test A-a O2 Difference Hgb O2 Saturation Vent Mode Mechanical Rate FiO2 Tidal Volume PEEP Sodium Potassium Chloride Carbon Dioxide Anion Gap BUN Creatinine Est GFR ( Amer) Est GFR (Non-Af Amer) Random Glucose Calcium Phosphorus Magnesium Total Bilirubin AST ALT Alkaline Phosphatase NT-Pro-B Natriuret Pep Total Protein Albumin Globulin Albumin/Globulin Ratio Urine Color Yellow Urine Clarity Cloudy Urine pH 5.0 Ur Specific Parks 1.019 Urine Protein 100 Urine Glucose (UA) Neg Urine Ketones Negative Urine Blood Moderate Urine Nitrate Negative Urine Bilirubin Negative Urine Urobilinogen 0.2-1.0 Ur Leukocyte Esterase Trace Urine RBC (Auto) 41 H Urine Microscopic WBC 8 H Ur Squamous Epith Cells < 1 Amorphous Sediment Rare H Urine Bacteria Rare Ur Random Creatinine U Random Total Protein 43 Ur Random Sodium Vancomycin Trough 10/03/17 10/03/17 10/03/17 04:20 04:20 04:20 WBC RBC Hgb Hct MCV MCH MCHC RDW Plt Count PT 25.8 H INR 2.3 H APTT 37.4 H pCO2 pO2 HCO3 ABG pH ABG Total CO2 ABG O2 Saturation ABG O2 Content ABG Base Excess ABG Hemoglobin ABG Carboxyhemoglobin POC ABG HHb (Measured) ABG Methemoglobin ABG O2 Capacity Broderick Test A-a O2 Difference Hgb O2 Saturation Vent Mode Mechanical Rate FiO2 Tidal Volume PEEP Sodium 159 H Potassium 4.4 Chloride 116 H Carbon Dioxide 33 H Anion Gap 14 BUN 114 H* Creatinine 3.4 H Est GFR ( Amer) 21 Est GFR (Non-Af Amer) 18 Random Glucose 163 H Calcium 8.0 L Phosphorus 4.1 Magnesium 2.6 H Total Bilirubin 0.4 AST 41 ALT 29 Alkaline Phosphatase 61 NT-Pro-B Natriuret Pep Total Protein 5.9 L Albumin 2.7 L Globulin 3.3 Albumin/Globulin Ratio 0.8 L Urine Color Urine Clarity Urine pH Ur Specific Parks Urine Protein Urine Glucose (UA) Urine Ketones Urine Blood Urine Nitrate Urine Bilirubin Urine Urobilinogen Ur Leukocyte Esterase Urine RBC (Auto) Urine Microscopic WBC Ur Squamous Epith Cells Amorphous Sediment Urine Bacteria Ur Random Creatinine U Random Total Protein Ur Random Sodium Vancomycin Trough 14.8 H 10/03/17 05:19 WBC RBC Hgb Hct MCV MCH MCHC RDW Plt Count PT INR APTT pCO2 53 H pO2 123 H HCO3 30.4 H ABG pH 7.40 ABG Total CO2 34.4 H ABG O2 Saturation 99.6 H ABG O2 Content 12.7 L ABG Base Excess 7.0 H ABG Hemoglobin 9.1 L ABG Carboxyhemoglobin 1.6 H POC ABG HHb (Measured) 0.4 ABG Methemoglobin 0.7 ABG O2 Capacity 12.8 L Broderick Test Yes A-a O2 Difference 167.0 Hgb O2 Saturation 97.3 Vent Mode A/c Mechanical Rate 14 FiO2 50.0 Tidal Volume 450 PEEP 5 Sodium Potassium Chloride Carbon Dioxide Anion Gap BUN Creatinine Est GFR ( Amer) Est GFR (Non-Af Amer) Random Glucose Calcium Phosphorus Magnesium Total Bilirubin AST ALT Alkaline Phosphatase NT-Pro-B Natriuret Pep Total Protein Albumin Globulin Albumin/Globulin Ratio Urine Color Urine Clarity Urine pH Ur Specific Parks Urine Protein Urine Glucose (UA) Urine Ketones Urine Blood Urine Nitrate Urine Bilirubin Urine Urobilinogen Ur Leukocyte Esterase Urine RBC (Auto) Urine Microscopic WBC Ur Squamous Epith Cells Amorphous Sediment Urine Bacteria Ur Random Creatinine U Random Total Protein Ur Random Sodium Vancomycin Trough Fingerstick Blood Sugar Results: 83 Review of Systems - Review of Systems Systems not reviewed;Unavailable: Intubated Critical Care Progress Note - Ventilator Checklist Head of Bed 30 Degrees: Yes Daily Sedation Vacation: Yes Daily Assessment of Readiness to Wean: Yes Daily Spontaneous Breathing Trial: Yes PUD Prophalyxis: Yes DVT Prophylaxis: Yes Oral Care with Chlorhexidine Gluconate {CHG}: Yes - Vent Settings MODE:: ASSIST CONTROL TIDAL VOLUME:: 450 RESP RATE:: 14 FIO2:: 50 PEEP:: 5 - Extremities/Vascular Does the Patient have a Central Venous Catheter?: Yes Does the Patient need a Central Venous Catheter?: Yes Does the Patient have a Wang Catheter?: Yes Does the Patient need a Wang Catheter?: Yes Catheter Insertion Criteria: Need for accurate measurement of output in critically ill patient - Prophylaxis GI Prophylaxis GI: PPI - Prophylaxis DVT Prophylaxis DVT: Not Indicated (warfarin coagulopathy)
--- NOTE | 2017-10-03 08:09 | CP.PCM.PN ---
Subjective - Date & Time of Evaluation Date of Evaluation: 10/03/17 Time of Evaluation: 08:08 - Subjective Subjective: MS fluctuating improving at times Objective - Vital Signs/Intake and Output Vital Signs (last 24 hours): Temp Pulse Resp BP Pulse Ox 99.0 F 118 H 14 116/69 100 10/03/17 04:00 10/03/17 06:00 10/03/17 06:00 10/03/17 06:00 10/03/17 06:00 Intake and Output: 10/03/17 10/03/17 06:59 18:59 Intake Total 1500 Output Total 570 Balance 930 - Medications Medications: Current Medications Acetaminophen (Tylenol 650mg/20.3ml Solution Ud) 650 mg PO Q6 PRN PRN Reason: fever Last Admin: 10/02/17 20:45 Dose: 650 mg Albuterol/Ipratropium (Duoneb 3 Mg/0.5 Mg (3 Ml) Ud) 3 ml INH RQ4 [facility], [facility] Last Admin: 10/03/17 07:38 Dose: 3 ml Amiodarone HCl (Cordarone) 200 mg PO BID [facility], [facility]1983 Last Admin: 10/02/17 17:03 Dose: 200 mg Calcium Carbonate (Oscal) 500 mg PO BIDWM [facility], [facility]1983 Last Admin: 10/02/17 17:03 Dose: 500 mg Ergocalciferol (Drisdol 50,000 Intl Units Cap) 1 cap PO Q7D [facility]1983 Last Admin: 10/02/17 23:16 Dose: 1 cap Piperacillin Sod/Tazobactam Sod (Zosyn 2.25 Gm Iv Premix) 2.25 gm in 50 mls @ 50 mls/hr IVPB Q6 YUKI PRN Reason: Protocol Last Admin: 10/03/17 04:38 Dose: 50 mls/hr Lamotrigine (Lamictal) 25 mg PO BID [facility] Last Admin: 10/02/17 16:05 Dose: 25 mg Lorazepam (Ativan) 2 mg IVP Q6 PRN PRN Reason: Seizure activity Metoprolol Tartrate (Lopressor) 2.5 mg IVP Q6 [facility] Last Admin: 10/03/17 04:38 Dose: 2.5 mg - Labs Labs: 10/03/17 04:20 10/03/17 04:20 PT 25.8 Seconds (9.8-13.1) H 10/03/17 04:20 INR 2.3 (0.9-1.2) H 10/03/17 04:20 APTT 37.4 Seconds (25.6-37.1) H 10/03/17 04:20 - Constitutional Appears: Toxic - Head Exam Head Exam: ATRAUMATIC, NORMAL INSPECTION, NORMOCEPHALIC - Eye Exam Eye Exam: PERRL - ENT Exam ENT Exam: Mucous Membranes Moist, Normal Exam - Neck Exam Neck Exam: Full ROM, Normal Inspection. absent: Lymphadenopathy - Respiratory Exam Respiratory Exam: Rales, NORMAL BREATHING PATTERN - Cardiovascular Exam Cardiovascular Exam: Irregular Rhythm, +S1, +S2, Murmur - GI/Abdominal Exam GI & Abdominal Exam: Soft, Normal Bowel Sounds. absent: Tenderness - Extremities Exam Extremities Exam: Full ROM, Normal Capillary Refill, Normal Inspection. absent : Joint Swelling, Pedal Edema - Back Exam Back Exam: NORMAL INSPECTION - Neurological Exam Neurological Exam: Alert, Awake, CN II-XII Intact - Psychiatric Exam Psychiatric exam: Normal Affect, Normal Mood - Skin Skin Exam: Dry, Intact, Normal Color, Warm Assessment and Plan (1) Acute on chronic diastolic (congestive) heart failure Status: Chronic (2) A-fib Status: Chronic (3) Acute respiratory failure with hypoxia Status: Acute (4) Altered mental status Status: Deleted (5) HTN (hypertension) Status: Chronic (6) Seizure disorder Status: Chronic (7) CANDELARIA (acute kidney injury) Status: Resolved (8) Encephalopathy Status: Acute (9) Hypothermia Status: Deleted (10) Pleural effusion, bilateral Status: Acute (11) Supratherapeutic international normalized ratio (INR) Status: Acute (12) Acute decompensated heart failure Status: Acute (13) Atrial fibrillation with RVR Status: Acute
--- NOTE | 2017-10-03 10:41 | RAD ---
HISTORY: Intubated COMPARISON: Yesterday FINDINGS: LUNGS: Tubes and lines are unchanged. There appears to be some mild increase in atelectasis and effusion at the left lung base from prior study. Small right pleural catheter is unchanged. No appreciable pneumothorax is noted. PLEURA: No right effusion. Left pleural effusion. CARDIOVASCULAR: Vasculature is grossly unchanged. OSSEOUS STRUCTURES: No significant abnormalities. VISUALIZED UPPER ABDOMEN: Normal. OTHER FINDINGS: None. IMPRESSION: Mild increase in density in the left mid and lower lung field suggesting some mild increase in atelectasis and effusion. Stable positions of the previously noted lines and tubes.
--- NOTE | 2017-10-03 14:32 | CP.PCM.PN ---
Subjective - Date & Time of Evaluation Date of Evaluation: 10/03/17 Time of Evaluation: 12:45 - Subjective Subjective: F/U Respiratory Failure / PNA. Obtunded, intubated Objective - Vital Signs/Intake and Output Vital Signs (last 24 hours): Temp Pulse Resp BP Pulse Ox 99.9 F H 113 H 19 124/58 L 100 10/03/17 12:00 10/03/17 14:00 10/03/17 14:00 10/03/17 14:00 10/03/17 14:00 Intake and Output: 10/03/17 10/03/17 06:59 18:59 Intake Total 1500 250 Output Total 570 Balance 930 250 - Medications Medications: Current Medications Acetaminophen (Tylenol 650mg/20.3ml Solution Ud) 650 mg PO Q6 PRN PRN Reason: fever Last Admin: 10/02/17 20:45 Dose: 650 mg Albuterol/Ipratropium (Duoneb 3 Mg/0.5 Mg (3 Ml) Ud) 3 ml INH RQ4 [facility] Last Admin: 10/03/17 11:41 Dose: 3 ml Amiodarone HCl (Cordarone) 200 mg PO BID [facility] Last Admin: 10/03/17 08:48 Dose: 200 mg Calcium Carbonate (Oscal) 500 mg PO BIDWM [facility] Last Admin: 10/03/17 08:48 Dose: 500 mg Ergocalciferol (Drisdol 50,000 Intl Units Cap) 1 cap PO Q7D [facility] Last Admin: 10/02/17 23:16 Dose: 1 cap Piperacillin Sod/Tazobactam Sod (Zosyn 2.25 Gm Iv Premix) 2.25 gm in 50 mls @ 50 mls/hr IVPB Q6 [facility]I PRN Reason: Protocol Last Admin: 10/03/17 09:27 Dose: 50 mls/hr Lamotrigine (Lamictal) 25 mg PO BID [facility] Last Admin: 10/03/17 08:48 Dose: 25 mg Lorazepam (Ativan) 2 mg IVP Q6 PRN PRN Reason: Seizure activity Metoprolol Tartrate (Lopressor) 2.5 mg IVP Q6 [facility] Last Admin: 10/03/17 10:12 Dose: Not Given - Labs Labs: 10/03/17 04:20 10/03/17 04:20 PT 25.8 Seconds (9.8-13.1) H 10/03/17 04:20 INR 2.3 (0.9-1.2) H 10/03/17 04:20 APTT 37.4 Seconds (25.6-37.1) H 10/03/17 04:20 - Constitutional Appears: Chronically Ill - Head Exam Head Exam: NORMAL INSPECTION - Eye Exam Eye Exam: PERRL - ENT Exam Additional comments: intubbated - Neck Exam Neck Exam: Normal Inspection - Respiratory Exam Respiratory Exam: Decreased Breath Sounds (at bases) - Cardiovascular Exam Cardiovascular Exam: Irregular Rhythm - GI/Abdominal Exam GI & Abdominal Exam: Soft, Normal Bowel Sounds - Extremities Exam Additional comments: edema - Neurological Exam Additional comments: Obtunded , minimal spontaneous movements extremities - Skin Skin Exam: Warm Assessment and Plan (1) Acute respiratory failure with hypoxia Status: Acute (2) Aspiration pneumonia Status: Acute (3) Altered mental status Status: Acute (4) Pleural effusion, bilateral Status: Acute (5) Diastolic CHF, acute on chronic Status: Acute (6) A-fib Status: Chronic (7) CANDELARIA (acute kidney injury) Status: Acute (8) Hypernatremia Status: Acute (9) HTN (hypertension) Status: Chronic (10) S/P bronchoscopy Status: Acute (11) Hx of seizure disorder Status: Chronic - Assessment and Plan (Free Text) Plan: CXR increase atelectasis , effusion L base, INR 2.3 , FFP today and in am, f /u IR evaluate for L thoracentesis pig Tail in am , off Lasix drip, Hypernatremia , increased BUN , Creatinine , to have IV D5W , Patient was febrile yesterday f/u ID , Patient on Zosyn , Vanco on hold for high levels , discussed with Tractor Technician and Patient's ICU Time: 38 min.
--- NOTE | 2017-10-03 17:05 | CP.PCM.PN ---
Subjective - Date & Time of Evaluation Date of Evaluation: 10/03/17 Time of Evaluation: 17:00 - Subjective Subjective: Follow up Nephrology Consultation Note Assessment: critical Acute Kidney Injury (N17.9) likely due to pre-renal state/aggressive diuresis, Hypernatremia, hemodynamic (relative low BP and tachycardia ) ? sepsis Chronic Kidney Disease (N18.3) Stage 3 Anemia, vit D def Acute respi failure, diastolic CHF, b/l pleural effusion, A fib Plan No acute need for renal replacement therapy at this time. Hypertension control with meds as ordered. Patient not on ACEI/ARB due to CANDELARIA Monitor Input/Output, daily weights and renal function with basic metabolic panel recommend to start d5w @ 75 ml/hr considering persistently elevated Na and rising BUN Check urine analysis, spot protein/creatinine and albumin/creatinine ratio, renal sonogram. Dose meds/antibiotics for reduced GFR. Avoid fleets enema/magnesium based laxatives. Avoid nephrotoxins/NSAIDs/ iodinated contrast (unless needed emergently) Glycemic control Further work up for as per primary team Thanks for allowing me to participate in care of your patient. Will follow patient with you. Please call if any Qs. d/w and ICU team Dr Ghanshyam Clarke Office: [phone] Subjective: Noted events overnight. Patients intubated, non communicative Physical Examination: General Appearance: Comfortable, in no acute respiratory distress Vitals reviewed and noted as below Head; Atraumatic, normocephalic ENT: no ulcers no thrush. orally intubated EYES: Pupils are equal, round and reactive to light accommodation. Sclera is anicteric. Neck; supple no lymphadenopathy, no thyromegaly or bruit Lungs: Normal respiratory rate/effort. Breath sounds bilateral equal and clear anteriorly Heart: Increased rate. s1s2 normal. No rub or gallop. Extremities: no edema. Neurological: Patient is intubated, non communicative Skin: Warm and dry. Normal turgor. No rash. Palpitation: Normal elasticity for age Abdomen: Abdomen is soft. Bowel sounds +. There is no abdominal tenderness, no guarding/rigidity or organomegaly : kidney or bladder not palpable. has ko psych; unable Labs/imaging reviewed. Past medical history, past surgical history, family history, social history, allergy reviewed family hx; no hx of CKD. non contributory Objective - Vital Signs/Intake and Output Vital Signs (last 24 hours): Temp Pulse Resp BP Pulse Ox 99.1 F 119 H 19 109/55 L 100 10/03/17 16:00 10/03/17 16:37 10/03/17 14:00 10/03/17 16:37 10/03/17 16:00 Intake and Output: 10/03/17 10/03/17 06:59 18:59 Intake Total 1500 250 Output Total 570 100 Balance 930 150 - Medications Medications: Current Medications Acetaminophen (Tylenol 650mg/20.3ml Solution Ud) 650 mg PO Q6 PRN PRN Reason: fever Last Admin: 10/02/17 20:45 Dose: 650 mg Albuterol/Ipratropium (Duoneb 3 Mg/0.5 Mg (3 Ml) Ud) 3 ml INH RQ4 [facility] Last Admin: 10/03/17 15:52 Dose: 3 ml Amiodarone HCl (Cordarone) 200 mg PO BID [facility] Last Admin: 10/03/17 16:37 Dose: 200 mg Calcium Carbonate (Oscal) 500 mg PO BIDWM [facility] Last Admin: 10/03/17 16:37 Dose: 500 mg Ergocalciferol (Drisdol 50,000 Intl Units Cap) 1 cap PO Q7D [facility] Last Admin: 10/02/17 23:16 Dose: 1 cap Piperacillin Sod/Tazobactam Sod (Zosyn 2.25 Gm Iv Premix) 2.25 gm in 50 mls @ 50 mls/hr IVPB Q6 [facility] PRN Reason: Protocol Last Admin: 10/03/17 09:27 Dose: 50 mls/hr Dextrose (Dextrose 5% In Water 1000 Ml) 1,000 mls @ 75 mls/hr IV .[id number] [facility] Stop: 10/04/17 16:10 Lamotrigine (Lamictal) 25 mg PO BID [facility] Last Admin: 10/03/17 16:36 Dose: 25 mg Lorazepam (Ativan) 2 mg IVP Q6 PRN PRN Reason: Seizure activity Metoprolol Tartrate (Lopressor) 2.5 mg IVP Q6 [facility] Last Admin: 10/03/17 10:12 Dose: Not Given - Labs Labs: 10/03/17 04:20 10/03/17 04:20 PT 25.8 Seconds (9.8-13.1) H 10/03/17 04:20 INR 2.3 (0.9-1.2) H 10/03/17 04:20 APTT 37.4 Seconds (25.6-37.1) H 10/03/17 04:20
--- NOTE | 2017-10-03 21:40 | CP.PCM.PN ---
Subjective - Date & Time of Evaluation Date of Evaluation: 10/03/17 Time of Evaluation: 20:45 - Subjective Subjective: Hypothermia is controlled. His pre renal failure is responding to Treatment. He is on no ARB and No STEPHANIE inhibitor due to his Renal Dysfunction. He is Obtunded. Vanco Trough is [id number] to 14.8 after it was used to be 21.8 High Na and Cl. Objective - Vital Signs/Intake and Output Vital Signs (last 24 hours): Temp Pulse Resp BP Pulse Ox 98.8 F 108 H 14 110/79 100 10/03/17 20:00 10/03/17 20:00 10/03/17 20:00 10/03/17 20:00 10/03/17 20:00 Intake and Output: 10/03/17 10/04/17 18:59 06:59 Intake Total 1400 619 Output Total 990 Balance 410 619 - Medications Medications: Current Medications Acetaminophen (Tylenol 650mg/20.3ml Solution Ud) 650 mg PO Q6 PRN PRN Reason: fever Last Admin: 10/02/17 20:45 Dose: 650 mg Albuterol/Ipratropium (Duoneb 3 Mg/0.5 Mg (3 Ml) Ud) 3 ml INH RQ4 [facility] Last Admin: 10/03/17 19:29 Dose: 3 ml Amiodarone HCl (Cordarone) 200 mg PO BID [facility] Last Admin: 10/03/17 16:37 Dose: 200 mg Calcium Carbonate (Oscal) 500 mg PO BIDWM [facility] Last Admin: 10/03/17 16:37 Dose: 500 mg Ergocalciferol (Drisdol 50,000 Intl Units Cap) 1 cap PO Q7D [facility] Last Admin: 10/02/17 23:16 Dose: 1 cap Piperacillin Sod/Tazobactam Sod (Zosyn 2.25 Gm Iv Premix) 2.25 gm in 50 mls @ 50 mls/hr IVPB Q6 [facility] PRN Reason: Protocol Last Admin: 10/03/17 17:38 Dose: 50 mls/hr Dextrose (Dextrose 5% In Water 1000 Ml) 1,000 mls @ 75 mls/hr IV .[id number] [facility] Stop: 10/04/17 16:10 Lamotrigine (Lamictal) 25 mg PO BID [facility] Last Admin: 10/03/17 16:36 Dose: 25 mg Lorazepam (Ativan) 2 mg IVP Q6 PRN PRN Reason: Seizure activity Metoprolol Tartrate (Lopressor) 2.5 mg IVP Q6 [facility] Last Admin: 10/03/17 17:35 Dose: 2.5 mg - Labs Labs: 10/03/17 04:20 10/03/17 04:20 PT 25.8 Seconds (9.8-13.1) H 10/03/17 04:20 INR 2.3 (0.9-1.2) H 10/03/17 04:20 APTT 37.4 Seconds (25.6-37.1) H 10/03/17 04:20 Assessment and Plan (1) CANDELARIA (acute kidney injury) Assessment & Plan: Pre renal Dysfunction precautions. No STEPHANIE inhibitors and no ARB. Status: Acute (2) Acute respiratory failure Status: Acute (3) Altered mental status Status: Acute (4) Pleural effusion, bilateral Status: Acute (5) Pneumonia Status: Acute (6) Seizure disorder Status: Suspected (7) Encephalopathy Status: Acute
[2017-10-04] MEDS: Metoprolol 1 mg/ml Inj IVP SCH ×4 (04:15→21:13)
[2017-10-04] MEDS: Piperacill/Tazo 2.25gm in Dex 2.25 GM/50 ML BAG IVPB SCH ×2 (04:15→09:17)
[2017-10-04] MEDS: Albuterol-Ipratrop 3 mg / 0.5 (3 ml) UD INH SCH ×6 (05:08→23:09)
[2017-10-04 05:14] LABS: ABG ALLEN TEST YES; ARTERIAL BLOOD GAS HCO3 34.1 mmol/L (21-28); ARTERIAL BLOOD GAS HEMOGLOBIN 8.4 g/dL (11.7-17.4); ARTERIAL BLOOD GAS O2 CAPACITY 11.8 mL/dL (16-24); ARTERIAL BLOOD GAS O2 CONTENT 11.8 ML/dL (15-23); ARTERIAL BLOOD GAS PCO2 49 mm/Hg (35-45); ARTERIAL BLOOD GAS PH 7.48 (7.35-7.45); ARTERIAL BLOOD GAS PO2 153 mm/Hg (80-100)
[2017-10-04 05:42] LABS: HEMOGLOBIN 8.3 g/dL (12.0-18.0); MEAN CELL VOLUME 91.4 fl (80.0-94.0); MEAN CORPUSCULAR HEMOGLOBIN 29.4 pg (27.0-31.0); MEAN CORPUSCULAR HGB CONC 32.1 g/dL (33.0-37.0); RBC 2.82 Mil/uL (4.40-5.90); WHITE BLOOD COUNT 9.8 K/uL (4.8-10.8)
[2017-10-04 06:20] LABS: ALB/GLOB RATIO 0.8 (1.0-2.1); ALBUMIN 2.7 g/dL (3.5-5.0); CALCIUM 8.1 mg/dL (8.4-10.2)
[2017-10-04 06:35] LABS: INR 1.7 (0.9-1.2)
--- NOTE | 2017-10-04 09:44 | RAD ---
HISTORY: Intubated COMPARISON: Chest radiograph dated 10/03/2017. FINDINGS: LUNGS: Pulmonary vascular congestion. Left basilar atelectasis. PLEURA: Near-complete resolution of right pleural effusion. Similar moderate left pleural effusion. CARDIOVASCULAR: Left subclavian access single lead pacemaker redemonstrated. Cardiomediastinal silhouette unchanged. OSSEOUS STRUCTURES: No significant abnormalities. VISUALIZED UPPER ABDOMEN: Normal. OTHER FINDINGS: Endotracheal and orogastric tubes, unchanged. Right upper extremity PICC, unchanged. Right basilar pigtail chest tube, unchanged IMPRESSION: Stable moderate left pleural effusion. No significant right pleural effusion. No significant interval change.
--- NOTE | 2017-10-04 10:37 | CP.CCUPN ---
CCU Subjective - Physician Review Subjective (Free Text): No new changes nor improvement in overall mental status. has managed to get patient to open eyes to name calling but only very briefly. Lasix drip stopped 2 days ago. He remains in rapid A Fib, rate better controlled; temps down. Other vitals and I/O's reviewed. T max to 100.1 F; Urine output approx 1550 ml overnight, off lasix drip. ROS: Unobtainable due to lethargy. No other pertinent negs or positives on 10+ system review. PMSFH: All other Nursing and physician documentation reviewed to date; no new pertinent info noted relevant to current medical problems. CXR: visible distal tip of ETT ok above apoorva, R pigtail catheter intact, no PTX, R lung looks clear. Left basilar opacification persists (my interp). IMPRESSION / MAJOR PROBLEMS NOW: 1. Acute Resp ( Hypoxemic) failure 2 bilat effusions, and compressive atelectasis, unclear if any superimposed pneumonitic process. 2. Encephalopathy: etiology unclear, ?? metabolic vs cryptogenic seizures vs ?? CVA?? 3. Chronic A Fib, presently with controlled VR 4. r/o Cardiomyopathy vs Diastolic Dysfx CHF- non-invasive TTE shows preserved EF. 5. Azotemia, CKD III ( Bun/Cr was 36/1.5 at the time of last hospital discharge) 6. Warfarin induced-coagulopathy PLAN: 1. Day # 7 on MV. Recurrence of left effusion noted, IR eval for tap. INR corrected to 1.7 and more FFP ordered today. FiO2 requirements have not increased. No new organisms isolated from Sputum cultures. 2. He remains on Zosyn, Vanco has been held due to high trough levels. 3. Free water started 2 days, starting D5W IVFs today. 4. Will progress MV weans once lungs have been cleared of fluids. Will discuss with Pulm/PMD on any utility in further mgmt by Carolynn jeter for recurrent effusions. 5. Full Code status remains. CCU Objective - Vital Signs / Intake & Output Vital Signs (Last 4 hours): Vital Signs Temp Pulse Resp BP Pulse Ox 10/04/17 08:22 109 H 10/04/17 08:00 98.9 F 109 H 26 H 124/63 100 Intake and Output (Last 8hrs): Intake & Output 10/03/17 10/04/17 10/04/17 22:59 06:59 14:59 Intake Total 1944 900 400 Output Total 890 850 Balance 1054 50 400 Intake: IV 75 600 150 Intake, Piggyback 50 Tube Feeding 750 100 50 Blood Product 669 Free Water Flush 400 200 200 Output: Drainage 90 100 Right Lateral Chest 90 100 Urine 800 750 Urethral (Wang) 800 750 Other: # Bowel Movements 1 - Physical Exam Head: Positive for: Atraumatic, Normocephalic Pupils: Positive for: PERRL, Sluggish Extroacular Muscles: Positive for: EOMI Conjunctiva: Positive for: Normal. Negative for: Icteric Ears: Positive for: Normal Mouth: Positive for: Moist Mucous Membranes Pharnyx: Negative for: ERYTHEMA Neck: Positive for: Normal Range of Motion. Negative for: JVD Respiratory/Chest: Positive for: Decreased Breath Sounds, Rhonchi (upper airway rhonchi), Tachypneic. Negative for: Accessory Muscle Use, Wheezes Cardiovascular: Positive for: Irregular Rhythm, Peripheal Pulses Present. Negative for: Murmurs, Normal S1, S2, Tachycardic, Bradycardic Abdomen: Positive for: Normal Bowel Sounds. Negative for: Tenderness, Distention, Peritoneal Signs Upper Extremity: Positive for: Edema Lower Extremity: Positive for: Edema, NORMAL PULSES. Negative for: CALF TENDERNESS, Cyanosis Neurological: Positive for: Other (withdraws to deep pain) Skin: Positive for: Warm. Negative for: Rashes Psychiatric: Positive for: Lethargic - Medications Active Medications: Active Medications Generic Name Dose Route Start Last Admin Trade Name Freq PRN Reason Stop Dose Admin Acetaminophen 650 mg 09/29/17 13:49 10/02/17 20:45 Tylenol 650mg/20.3ml Solution Ud PO 650 mg Q6 PRN Administration fever Albuterol/Ipratropium 3 ml 09/28/17 12:00 10/04/17 08:13 Duoneb 3 Mg/0.5 Mg (3 Ml) Ud INH 3 ml RQ4 [facility]UKI Administration Amiodarone HCl 200 mg 09/29/17 17:00 10/04/17 08:22 Cordarone PO 200 mg BID [facility]I Administration Calcium Carbonate 500 mg 09/26/17 08:00 10/04/17 08:22 Oscal PO 500 mg BIDWM [facility] Administration Ergocalciferol 1 cap 09/25/17 23:45 10/02/17 23:16 Drisdol 50,000 Intl Units Cap PO 1 cap Q7D [facility] Administration Piperacillin Sod/Tazobactam Sod 2.25 gm in 50 mls @ 50 mls/hr 09/29/17 22:00 10/04/17 09:17 Zosyn 2.25 Gm Iv Premix IVPB 50 mls/hr Q6 [facility]I Administration Protocol Dextrose 1,000 mls @ 75 mls/hr 10/03/17 16:15 10/04/17 06:45 Dextrose 5% In Water 1000 Ml IV 10/04/17 16:10 75 mls/hr .[id number] [facility]I Administration Lamotrigine 25 mg 09/23/17 18:15 10/04/17 08:22 Lamictal PO 25 mg BID [facility] Administration Lorazepam 2 mg 10/01/17 22:00 Ativan IVP Q6 PRN Seizure activity Metoprolol Tartrate 2.5 mg 09/27/17 10:00 10/04/17 09:16 Lopressor IVP 2.5 mg Q6 [facility]UKI Administration - Patient Studies Lab Studies: Lab Studies 10/04/17 10/04/17 10/04/17 Range/Units 05:06 04:20 04:20 WBC (4.8-10.8) K/uL RBC (4.40-5.90) Mil/uL Hgb (12.0-18.0) g/dL Hct (35.0-51.0) % MCV (80.0-94.0) fl MCH (27.0-31.0) pg MCHC (33.0-37.0) g/dL RDW (11.5-14.5) % Plt Count (130-400) K/uL PT 19.0 H D (9.8-13.1) Seconds INR 1.7 H D (0.9-1.2) pCO2 49 H (35-45) mm/Hg pO2 153 H (80-100) mm/Hg HCO3 34.1 H (21-28) mmol/L ABG pH 7.48 H (7.35-7.45) ABG Total CO2 38.0 H (22-28) mmol/L ABG O2 Saturation 100.0 H (95-98) % ABG O2 Content 11.8 L (15-23) ML/dL ABG Base Excess 11.7 H (-2.0-3.0) mmol/L ABG Hemoglobin 8.4 L (11.7-17.4) g/dL ABG Carboxyhemoglobin 1.7 H (0.5-1.5) % POC ABG HHb (Measured) 0.0 (0.0-5.0) % ABG Methemoglobin 1.1 (0.0-3.0) % ABG O2 Capacity 11.8 L (16-24) mL/dL Broderick Test Yes A-a O2 Difference 142.0 mm/Hg Hgb O2 Saturation 97.3 (95.0-98.0) % Vent Mode A/c Mechanical Rate 14 FiO2 50.0 % Tidal Volume 450 PEEP 5 Sodium 159 H (132-148) mmol/l Potassium 4.2 (3.6-5.0) MMOL/L Chloride 114 H (98-107) mmol/L Carbon Dioxide 35 H (22-30) mmol/L Anion Gap 14 (10-20) BUN 113 H* (9-20) mg/dl Creatinine 2.9 H (0.8-1.5) mg/dl Est GFR ( Amer) 26 Est GFR (Non-Af Amer) 21 Random Glucose 112 H (75-110) mg/dL Calcium 8.1 L (8.4-10.2) mg/dL Total Bilirubin 0.5 (0.2-1.3) mg/dl AST 44 (17-59) U/L ALT 31 (21-72) U/L Alkaline Phosphatase 59 (38-126) U/L Total Protein 6.1 L (6.3-8.2) G/DL Albumin 2.7 L (3.5-5.0) g/dL Globulin 3.3 (2.2-3.9) gm/dL Albumin/Globulin Ratio 0.8 L (1.0-2.1) 10/04/17 Range/Units 04:20 WBC 9.8 (4.8-10.8) K/uL RBC 2.82 L (4.40-5.90) Mil/uL Hgb 8.3 L (12.0-18.0) g/dL Hct 25.7 L (35.0-51.0) % MCV 91.4 (80.0-94.0) fl MCH 29.4 (27.0-31.0) pg MCHC 32.1 L (33.0-37.0) g/dL RDW 19.0 H (11.5-14.5) % Plt Count 220 (130-400) K/uL PT (9.8-13.1) Seconds INR (0.9-1.2) pCO2 (35-45) mm/Hg pO2 (80-100) mm/Hg HCO3 (21-28) mmol/L ABG pH (7.35-7.45) ABG Total CO2 (22-28) mmol/L ABG O2 Saturation (95-98) % ABG O2 Content (15-23) ML/dL ABG Base Excess (-2.0-3.0) mmol/L ABG Hemoglobin (11.7-17.4) g/dL ABG Carboxyhemoglobin (0.5-1.5) % POC ABG HHb (Measured) (0.0-5.0) % ABG Methemoglobin (0.0-3.0) % ABG O2 Capacity (16-24) mL/dL Broderick Test A-a O2 Difference mm/Hg Hgb O2 Saturation (95.0-98.0) % Vent Mode Mechanical Rate FiO2 % Tidal Volume PEEP Sodium (132-148) mmol/l Potassium (3.6-5.0) MMOL/L Chloride (98-107) mmol/L Carbon Dioxide (22-30) mmol/L Anion Gap (10-20) BUN (9-20) mg/dl Creatinine (0.8-1.5) mg/dl Est GFR ( Amer) Est GFR (Non-Af Amer) Random Glucose (75-110) mg/dL Calcium (8.4-10.2) mg/dL Total Bilirubin (0.2-1.3) mg/dl AST (17-59) U/L ALT (21-72) U/L Alkaline Phosphatase (38-126) U/L Total Protein (6.3-8.2) G/DL Albumin (3.5-5.0) g/dL Globulin (2.2-3.9) gm/dL Albumin/Globulin Ratio (1.0-2.1) Laboratory Results - last 24 hr 10/04/17 10/04/17 10/04/17 04:20 04:20 04:20 WBC 9.8 RBC 2.82 L Hgb 8.3 L Hct 25.7 L MCV 91.4 MCH 29.4 MCHC 32.1 L RDW 19.0 H Plt Count 220 PT 19.0 H D INR 1.7 H D pCO2 pO2 HCO3 ABG pH ABG Total CO2 ABG O2 Saturation ABG O2 Content ABG Base Excess ABG Hemoglobin ABG Carboxyhemoglobin POC ABG HHb (Measured) ABG Methemoglobin ABG O2 Capacity Broderick Test A-a O2 Difference Hgb O2 Saturation Vent Mode Mechanical Rate FiO2 Tidal Volume PEEP Sodium 159 H Potassium 4.2 Chloride 114 H Carbon Dioxide 35 H Anion Gap 14 BUN 113 H* Creatinine 2.9 H Est GFR ( Amer) 26 Est GFR (Non-Af Amer) 21 Random Glucose 112 H Calcium 8.1 L Total Bilirubin 0.5 AST 44 ALT 31 Alkaline Phosphatase 59 Total Protein 6.1 L Albumin 2.7 L Globulin 3.3 Albumin/Globulin Ratio 0.8 L 10/04/17 05:06 WBC RBC Hgb Hct MCV MCH MCHC RDW Plt Count PT INR pCO2 49 H pO2 153 H HCO3 34.1 H ABG pH 7.48 H ABG Total CO2 38.0 H ABG O2 Saturation 100.0 H ABG O2 Content 11.8 L ABG Base Excess 11.7 H ABG Hemoglobin 8.4 L ABG Carboxyhemoglobin 1.7 H POC ABG HHb (Measured) 0.0 ABG Methemoglobin 1.1 ABG O2 Capacity 11.8 L Broderick Test Yes A-a O2 Difference 142.0 Hgb O2 Saturation 97.3 Vent Mode A/c Mechanical Rate 14 FiO2 50.0 Tidal Volume 450 PEEP 5 Sodium Potassium Chloride Carbon Dioxide Anion Gap BUN Creatinine Est GFR ( Amer) Est GFR (Non-Af Amer) Random Glucose Calcium Total Bilirubin AST ALT Alkaline Phosphatase Total Protein Albumin Globulin Albumin/Globulin Ratio Radiology Interpretations (Free Text): see above Fingerstick Blood Sugar Results: 83 Review of Systems - Review of Systems Systems not reviewed;Unavailable: Intubated Critical Care Progress Note - Ventilator Checklist Head of Bed 30 Degrees: Yes Daily Sedation Vacation: Yes Daily Assessment of Readiness to Wean: Yes Daily Spontaneous Breathing Trial: Yes PUD Prophalyxis: Yes DVT Prophylaxis: Yes Oral Care with Chlorhexidine Gluconate {CHG}: Yes - Vent Settings MODE:: ASSIST CONTROL TIDAL VOLUME:: 450 RESP RATE:: 14 FIO2:: 50 PEEP:: 5 - Extremities/Vascular Does the Patient have a Central Venous Catheter?: Yes Insertion Site: RUE PICC Does the Patient need a Central Venous Catheter?: Yes Does the Patient have a Wang Catheter?: Yes Does the Patient need a Wang Catheter?: Yes Catheter Insertion Criteria: Need for accurate measurement of output in critically ill patient - Prophylaxis GI Prophylaxis GI: PPI - Prophylaxis DVT Prophylaxis DVT: Not Indicated (warfarin coagulopathy)
[2017-10-04] MEDS ORDERED: Lidocaine 1% Inj (20ml) ONE (11:19)
--- NOTE | 2017-10-04 11:42 | PCM.SURG1 ---
Surgeon's Initial Post Op Note - Surgeon's Notes Surgeon: Clifford Friedman MD Catering Operations Manager: NONE Type of Anesthesia: Local Pre-Operative Diagnosis: Pleural effusion Operative Findings: US showed a moderate amount of fluid Post-Operative Diagnosis: Pleural effusion Operation Performed: US guided left thoracentesis Specimen/Specimens Removed: 750 cc of radha colored fluid Estimated Blood Loss: EBL {In ML}: 2 Drains Used: No Drains Post-Op Condition: Fair Date of Surgery/Procedure: 10/04/17 Time of Surgery/Procedure: 11:35
[2017-10-04] MEDS ORDERED: Chlorhexidine Gluconate 1 APPL/PKT TP ONE (12:20)
--- NOTE | 2017-10-04 12:20 | RAD ---
PROCEDURE: CHEST RADIOGRAPH, 1 VIEW HISTORY: Status post left thoracentesis COMPARISON: Chest radiograph performed approximately 6.5 hours prior. FINDINGS: LUNGS: Pulmonary vascular congestion. Left basilar atelectasis. PLEURA: Near-complete resolution of left pleural effusion status post thoracentesis. No significant right pleural effusion. Markedly limited evaluation for pneumothorax due to exclusion of the apices from the field of view as well as obscuration of the visualized apices by the patient's chin. CARDIOVASCULAR: Left subclavian access single lead pacemaker redemonstrated. Atherosclerotic aortic calcifications. Cardiomediastinal silhouette unchanged. OSSEOUS STRUCTURES: Unchanged. VISUALIZED UPPER ABDOMEN: Normal. OTHER FINDINGS: Orogastric tube, unchanged. Endotracheal tube not visualized. Right upper extremity PICC, unchanged. Right basilar pigtail chest tube, unchanged. . IMPRESSION: Near complete resolution of the left pleural effusion status post thoracentesis. Markedly limited evaluation for pneumothorax due to exclusion of the apices from the field of view as well as obscuration of the visualized portions of the apices by the patient's chin. Nonvisualization of the endotracheal tube may be due to obscuration from the patient's chin versus interval extubation. Clinical correlation is recommended. No other significant interval changes.
--- NOTE | 2017-10-04 13:49 | CP.PCM.CON ---
History of Present Illness - History of Present Illness History of Present Illness: 77 yo M w/ pmh of of atrial fib, hx of PPM placement, ? diastolic heart failure that initially presented to the hospital with altered mental status and pleural effusions. His course has been complicated by hypoxia requiring intubation, pig tail cathether placement and thoracentesis for pleural effusions. He has been followed by neuro and cardiology and pulm as well. He has been on broad spectrum abx as well. He has been diuresisng well over the last several days and has developed CANDELARIA and hypernatremia. extubated recently on BiPaP at bedside alert but altered Id consulted for antibiotic management Review of Systems - Review of Systems Systems not reviewed;Unavailable: Altered Mental Status - Constitutional Constitutional: As Per HPI - EENT Eyes: absent: As Per HPI, Blind Spots, Blurred Vision, Change in Vision, Decreased Night Vision, Diplopia, Discharge, Dry Eye, Exophthalmos, Floaters, Irritation, Itchy Eyes, Loss of Peripheral Vision, Pain, Photophobia, Requires Corrective Lenses, Sees Flashes, Spots in Vision, Tunnel Vision, Other Visual Disturbances, Loss of Vision, Other Ears: absent: As Per HPI, Decreased Hearing, Ear Discharge, Ear Pain, Tinnitus, Abnormal Hearing, Disequilibrium, Dizziness, Other Nose/Mouth/Throat: absent: As Per HPI, Epistaxis, Nasal Congestion, Nasal Discharge, Nasal Obstruction, Nasal Trauma, Nose Pain, Post Nasal Drip, Sinus Pain, Sinus Pressure, Bleeding Gums, Change in Voice, Dental Pain, Dry Mouth, Dysphagia, Halitosis, Hoarsness, Lip Swelling, Mouth Lesions, Mouth Pain, Odynophagia, Sore Throat, Throat Swelling, Tongue Swelling, Facial Pain, Neck Pain, Neck Mass, Other - Cardiovascular Cardiovascular: As Per HPI - Respiratory Respiratory: As Per HPI - Gastrointestinal Gastrointestinal: absent: As Per HPI, Abdominal Pain, Belching, Bloating, Change in Bowel Habits, Change in Stool Character, Coffee Ground Emesis, Constipation, Cramping, Diarrhea, Dyspepsia, Dysphagia, Early Satiety, Excessive Flatus, Fecal Incontinence, Heartburn, Hematemesis, Hematochezia, Loose Stools, Melena, Nausea, Odynophagia, Temesmus, Vomiting, Other - Genitourinary Genitourinary: absent: As Per HPI, Change in Urinary Stream, Difficulty Urinating, Dysuria, Flank Pain, Hematuria, Pyuria, Nocturia, Urinary Incontinence, Urinary Frequency, Urinary Hesitance, Urinary Urgency, Voiding Freq/Small Amts, Freq UTI, Hx Renal/Bladder Calculi, Hx /Renal Surgery, Bladder Distension, Other - Musculoskeletal Musculoskeletal: absent: As Per HPI, Abnormal Gait, Arthralgias, Atrophy, Back Pain, Deformity, Joint Swelling, Limited Range of Motion, Loss of Height, Muscle Cramps, Muscle Weakness, Myalgias, Neck Pain, Numbness, Radiating Pain into Limb, Stiffness, Tingling, Other - Integumentary Integumentary: absent: As Per HPI, Acne, Alopecia, Bleeding Lesions, Change in Hair, Change in Nails, Change in Pigmentation, Changing Lesions, Dry Skin, Erythema, Furuncle, Hirsutism, Lesions, New Lesions, Non-Healing Lesions, Photosensitivity, Pruritus, Rash, Skin Pain, Skin Ulcer, Sores, Striae, Swelling , Unusual Bruising, Wounds, Jaundice, Other - Neurological Neurological: As Per HPI - Psychiatric Psychiatric: absent: As Per HPI, Abnormal Sleep Pattern, Anhedonia, Anxiety, Auditory Hallucinations, Behavioral Changes, Change in Appetite, Change in Libido, Confusion, Depression, Difficulty Concentrating, Hallucinations, Homicidal Ideation, Hopelessness, Irritability, Memory Loss, Mood Swings, Panic Attacks, Paranoia, Suicidal Ideation, Visual Hallucinations, Tactile Hallucinations, Other - Endocrine Endocrine: absent: As Per HPI, Change in Body Appearance, Change in Libido, Cold Intolorance, Deepening of Voice, Excessive Sweating, Fatigue, Flushing, Heat Intolorance, Increase in Ring/Shoe/Hat Size, Palpitations, Polydipsia, Polyphagia, Polyuria, Other - Hematologic/Lymphatic Hematologic: absent: As Per HPI, Easy Bleeding, Easy Bruising, Lymphadenopathy, Other Past Patient History - Infectious Disease Hx of Infectious Diseases: None - Past Medical History & Family History Past Medical History?: Yes - Past Social History Smoking Status: Never Smoked Alcohol: None Drugs: Denies Home Situation {Lives}: With Family - CARDIAC Hx Cardiac Disorders: Yes (afib, CHF, HTn, pacemaker, peripheral edema) - PULMONARY Hx Respiratory Disorders: Yes (sleep apnea) - NEUROLOGICAL Hx Neurological Disorder: Yes (CVA, TIAm seizure, syncope) - HEENT Hx HEENT Problems: No - RENAL Hx Chronic Kidney Disease: No - ENDOCRINE/METABOLIC Hx Endocrine Disorders: No - HEMATOLOGICAL/ONCOLOGICAL Hx Human Immunodeficiency Virus (HIV): No - INTEGUMENTARY Hx Dermatological Problems: No - MUSCULOSKELETAL/RHEUMATOLOGICAL Hx Musculoskeletal Disorders: Yes Hx Falls: Yes Hx Unsteady Gait: Yes - GASTROINTESTINAL Hx Gastrointestinal Disorders: No - GENITOURINARY/GYNECOLOGICAL Hx Genitourinary Disorders: Yes Hx Incontinence: Yes Hx Prostate Problems: Yes (BPH) - PSYCHIATRIC Hx Psychophysiologic Disorder: Yes Hx Hallucinations: Yes Hx Substance Use: No - SURGICAL HISTORY Hx Surgeries: No - ANESTHESIA Hx Anesthesia: No Meds Allergies/Adverse Reactions: Allergies Allergy/AdvReac Type Severity Reaction Status Date / Time EGG AdvReac HEADACHE Verified 09/23/17 07:32 seafoods Allergy SWELLING Uncoded 09/23/17 07:32 - Medications Medications: Current Medications Acetaminophen (Tylenol 650mg/20.3ml Solution Ud) 650 mg PO Q6 PRN PRN Reason: fever Last Admin: 10/02/17 20:45 Dose: 650 mg Albuterol/Ipratropium (Duoneb 3 Mg/0.5 Mg (3 Ml) Ud) 3 ml INH RQ4 [facility] Last Admin: 10/04/17 08:13 Dose: 3 ml Amiodarone HCl (Cordarone) 200 mg PO BID [facility] Last Admin: 10/04/17 08:22 Dose: 200 mg Calcium Carbonate (Oscal) 500 mg PO BIDWM [facility] Last Admin: 10/04/17 08:22 Dose: 500 mg Ergocalciferol (Drisdol 50,000 Intl Units Cap) 1 cap PO Q7D [facility] Last Admin: 10/02/17 23:16 Dose: 1 cap Dextrose (Dextrose 5% In Water 1000 Ml) 1,000 mls @ 100 mls/hr IV .Q10H [facility] Stop: 10/04/17 16:10 Piperacillin Sod/Tazobactam (Sod 2.25 gm/ Sodium Chloride) 100 mls @ 100 mls/ hr IVPB Q6 [facility] PRN Reason: Protocol Lamotrigine (Lamictal) 25 mg PO BID [facility] Last Admin: 10/04/17 08:22 Dose: 25 mg Lorazepam (Ativan) 2 mg IVP Q6 PRN PRN Reason: Seizure activity Metoprolol Tartrate (Lopressor) 2.5 mg IVP Q6 [facility] Last Admin: 10/04/17 09:16 Dose: 2.5 mg Physical Exam - Constitutional Appears: No Acute Distress, Confused, Chronically Ill - Head Exam Head Exam: ATRAUMATIC, NORMAL INSPECTION, NORMOCEPHALIC - Eye Exam Eye Exam: PERRL. absent: Scleral icterus - ENT Exam ENT Exam: Mucous Membranes Dry, Normal External Ear Exam, Normal Oropharynx, TM' s Normal Bilaterally - Neck Exam Neck exam: Negative for: Lymphadenopathy, Thyromegaly - Respiratory Exam Respiratory Exam: Decreased Breath Sounds, Rhonchi - Cardiovascular Exam Cardiovascular Exam: Tachycardia, REGULAR RHYTHM, +S1, +S2 - GI/Abdominal Exam GI & Abdominal Exam: Diminished Bowel Sounds, Soft. absent: Tenderness - Rectal Exam Rectal Exam: Deferred - Exam Exam: NORMAL INSPECTION - Extremities Exam Extremities exam: Positive for: pedal pulses present. Negative for: calf tenderness, pedal edema, tenderness - Back Exam Back exam: absent: CVA tenderness (L), CVA tenderness (R), paraspinal tenderness - Neurological Exam Neurological exam: Alert, CN II-XII Intact, Oriented x3, Reflexes Normal - Psychiatric Exam Psychiatric exam: Depressed - Skin Skin Exam: Dry, Intact Results - Vital Signs Recent Vital Signs: Last Vital Signs Temp 100.2 F H 10/04/17 12:00 Pulse 107 H 10/04/17 12:25 Resp 29 H 10/04/17 12:00 BP 137/59 L 10/04/17 12:00 Pulse Ox 100 10/04/17 12:00 - Labs Result Diagrams: 10/04/17 04:20 10/04/17 04:20 Labs: Laboratory Results - last 24 hr 10/04/17 10/04/17 10/04/17 04:20 04:20 04:20 WBC 9.8 RBC 2.82 L Hgb 8.3 L Hct 25.7 L MCV 91.4 MCH 29.4 MCHC 32.1 L RDW 19.0 H Plt Count 220 PT 19.0 H D INR 1.7 H D pCO2 pO2 HCO3 ABG pH ABG Total CO2 ABG O2 Saturation ABG O2 Content ABG Base Excess ABG Hemoglobin ABG Carboxyhemoglobin POC ABG HHb (Measured) ABG Methemoglobin ABG O2 Capacity Broderick Test A-a O2 Difference Hgb O2 Saturation Vent Mode Mechanical Rate FiO2 Tidal Volume PEEP Sodium 159 H Potassium 4.2 Chloride 114 H Carbon Dioxide 35 H Anion Gap 14 BUN 113 H* Creatinine 2.9 H Est GFR ( Amer) 26 Est GFR (Non-Af Amer) 21 Random Glucose 112 H Calcium 8.1 L Total Bilirubin 0.5 AST 44 ALT 31 Alkaline Phosphatase 59 Total Protein 6.1 L Albumin 2.7 L Globulin 3.3 Albumin/Globulin Ratio 0.8 L 10/04/17 05:06 WBC RBC Hgb Hct MCV MCH MCHC RDW Plt Count PT INR pCO2 49 H pO2 153 H HCO3 34.1 H ABG pH 7.48 H ABG Total CO2 38.0 H ABG O2 Saturation 100.0 H ABG O2 Content 11.8 L ABG Base Excess 11.7 H ABG Hemoglobin 8.4 L ABG Carboxyhemoglobin 1.7 H POC ABG HHb (Measured) 0.0 ABG Methemoglobin 1.1 ABG O2 Capacity 11.8 L Broderick Test Yes A-a O2 Difference 142.0 Hgb O2 Saturation 97.3 Vent Mode A/c Mechanical Rate 14 FiO2 50.0 Tidal Volume 450 PEEP 5 Sodium Potassium Chloride Carbon Dioxide Anion Gap BUN Creatinine Est GFR ( Amer) Est GFR (Non-Af Amer) Random Glucose Calcium Total Bilirubin AST ALT Alkaline Phosphatase Total Protein Albumin Globulin Albumin/Globulin Ratio Assessment & Plan (1) CANDELARIA (acute kidney injury) Status: Acute (2) Acute respiratory failure Status: Acute Priority: High (3) Altered mental status Status: Acute Priority: High (4) Diastolic CHF, acute on chronic Status: Acute (5) Pleural effusion, bilateral Status: Acute Priority: High (6) Pneumonia Status: Acute - Assessment and Plan (Free Text) Assessment: 77 yo male with failure to thrive and multi organ system failure Has effusions/ infiltrates bilat- s/p thoracentesis cannot r/o occult malignancy May be candidate for palliative care agree with IV antibiotics for now pending cultures prognosis guarded
--- NOTE | 2017-10-04 16:35 | CP.PCM.PN ---
Subjective - Date & Time of Evaluation Date of Evaluation: 10/04/17 Time of Evaluation: 16:33 - Subjective Subjective: Follow up Nephrology Consultation Note Assessment: critical Acute Kidney Injury (N17.9) likely due to pre-renal state/aggressive diuresis, Hypernatremia, hemodynamic (relative low BP and tachycardia ) ? sepsis Chronic Kidney Disease (N18.3) Stage 3 Anemia, vit D def Acute respi failure, diastolic CHF, b/l pleural effusion, A fib Plan No acute need for renal replacement therapy at this time. Hypertension control with meds as ordered. Patient not on ACEI/ARB due to CANDELARIA Monitor Input/Output, daily weights and renal function with basic metabolic panel Increase d5w @ 10 ml/hr considering persistently elevated Na and high BUN may need IV lasix in next 1-2 days if more edematous state Check urine analysis, spot protein/creatinine and albumin/creatinine ratio, renal sonogram. Dose meds/antibiotics for reduced GFR. Avoid fleets enema/magnesium based laxatives. Avoid nephrotoxins/NSAIDs/ iodinated contrast (unless needed emergently) Glycemic control Further work up for as per primary team Thanks for allowing me to participate in care of your patient. Will follow patient with you. Please call if any Qs. d/w and ICU team Dr Ghanshyam Clarke Office: [phone] Subjective: Noted events overnight. Patients extubated, but non communicative Physical Examination: General Appearance: ill appearing, in no acute respiratory distress Vitals reviewed and noted as below Head; Atraumatic, normocephalic ENT: no ulcers no thrush. orally intubated EYES: Pupils are equal, round and reactive to light accommodation. Sclera is anicteric. Neck; supple no lymphadenopathy, no thyromegaly or bruit Lungs: Normal respiratory rate/effort. Breath sounds bilateral equal and reduced at bases Heart: normal rate. s1s2 normal. No rub or gallop. Extremities: pedal edema +. Neurological: Patient is extubated, but letahrgic and non communicative Skin: Warm and dry. Normal turgor. No rash. Palpitation: Normal elasticity for age Abdomen: Abdomen is soft. Bowel sounds +. There is no abdominal tenderness, no guarding/rigidity or organomegaly : kidney or bladder not palpable. has ko psych; unable Labs/imaging reviewed. Past medical history, past surgical history, family history, social history, allergy reviewed family hx; no hx of CKD. non contributory Objective - Vital Signs/Intake and Output Vital Signs (last 24 hours): Temp Pulse Resp BP Pulse Ox 99.5 F 107 H 28 H 117/50 L 100 10/04/17 16:00 10/04/17 16:00 10/04/17 16:00 10/04/17 16:01 10/04/17 16:00 Intake and Output: 10/04/17 10/04/17 06:59 18:59 Intake Total 1694 2025 Output Total 850 750 Balance 844 1275 - Medications Medications: Current Medications Acetaminophen (Tylenol 650mg/20.3ml Solution Ud) 650 mg PO Q6 PRN PRN Reason: fever Last Admin: 10/02/17 20:45 Dose: 650 mg Albuterol/Ipratropium (Duoneb 3 Mg/0.5 Mg (3 Ml) Ud) 3 ml INH RQ4 [facility] Last Admin: 10/04/17 15:23 Dose: 3 ml Amiodarone HCl (Cordarone) 200 mg PO BID [facility] Last Admin: 10/04/17 16:01 Dose: 200 mg Calcium Carbonate (Oscal) 500 mg PO BIDWM [facility] Last Admin: 10/04/17 16:01 Dose: 500 mg Ergocalciferol (Drisdol 50,000 Intl Units Cap) 1 cap PO Q7D [facility] Last Admin: 10/02/17 23:16 Dose: 1 cap Piperacillin Sod/Tazobactam (Sod 2.25 gm/ Sodium Chloride) 100 mls @ 100 mls/ hr IVPB Q6 [facility] PRN Reason: Protocol Last Admin: 10/04/17 16:02 Dose: 100 mls/hr Lamotrigine (Lamictal) 25 mg PO BID [facility] Last Admin: 10/04/17 16:02 Dose: 25 mg Lorazepam (Ativan) 2 mg IVP Q6 PRN PRN Reason: Seizure activity Metoprolol Tartrate (Lopressor) 2.5 mg IVP Q6 [facility] Last Admin: 10/04/17 16:02 Dose: 2.5 mg - Labs Labs: 10/04/17 04:20 10/04/17 04:20 PT 19.0 Seconds (9.8-13.1) H D 10/04/17 04:20 INR 1.7 (0.9-1.2) H D 10/04/17 04:20 APTT 37.4 Seconds (25.6-37.1) H 10/03/17 04:20
--- NOTE | 2017-10-04 17:36 | CP.PCM.PN ---
Subjective - Date & Time of Evaluation Date of Evaluation: 10/04/17 Time of Evaluation: 13:45 - Subjective Subjective: F/U Respiratory Failure. ET Tube came out, Pt on BIPAP. Objective - Vital Signs/Intake and Output Vital Signs (last 24 hours): Temp Pulse Resp BP Pulse Ox 99.5 F 107 H 28 H 117/50 L 100 10/04/17 16:00 10/04/17 16:00 10/04/17 16:00 10/04/17 16:01 10/04/17 16:00 Intake and Output: 10/04/17 10/04/17 06:59 18:59 Intake Total 1694 2025 Output Total 850 750 Balance 844 1275 - Medications Medications: Current Medications Acetaminophen (Tylenol 650mg/20.3ml Solution Ud) 650 mg PO Q6 PRN PRN Reason: fever Last Admin: 10/02/17 20:45 Dose: 650 mg Albuterol/Ipratropium (Duoneb 3 Mg/0.5 Mg (3 Ml) Ud) [address] [facility] Last Admin: 10/04/17 15:23 Dose: 3 ml Amiodarone HCl (Cordarone) [address] [facility] Last Admin: 10/04/17 16:01 Dose: 200 mg Calcium Carbonate (Oscal) [address] [facility] Last Admin: 10/04/17 16:01 Dose: 500 mg Ergocalciferol (Drisdol 50,000 Intl Units Cap) [address] [facility] Last Admin: 10/02/17 23:16 Dose: 1 cap Piperacillin Sod/Tazobactam (Sod 2.25 gm/ Sodium Chloride) 100 mls @ 100 mls/ hr IVPB Q6 [facility] PRN Reason: Protocol Last Admin: 10/04/17 16:02 Dose: 100 mls/hr Lamotrigine (Lamictal) 25 mg PO BID [facility] Last Admin: 10/04/17 16:02 Dose: 25 mg Lorazepam (Ativan) 2 mg IVP Q6 PRN PRN Reason: Seizure activity Metoprolol Tartrate (Lopressor) 2.[address] [facility] Last Admin: 10/04/17 16:02 Dose: 2.5 mg - Labs Labs: 10/04/17 04:20 10/04/17 04:20 PT 19.0 Seconds (9.8-13.1) H D 10/04/17 04:20 INR 1.7 (0.9-1.2) H D 10/04/17 04:20 APTT 37.4 Seconds (25.6-37.1) H 10/03/17 04:20 - Constitutional Appears: Chronically Ill - Head Exam Head Exam: NORMAL INSPECTION - Eye Exam Eye Exam: PERRL - ENT Exam Additional comments: Extubated on BIPAP - Neck Exam Neck Exam: Normal Inspection - Respiratory Exam Respiratory Exam: Decreased Breath Sounds (at bases), Rhonchi (scattered) - Cardiovascular Exam Cardiovascular Exam: Irregular Rhythm - GI/Abdominal Exam GI & Abdominal Exam: Soft, Normal Bowel Sounds - Extremities Exam Additional comments: Edema extremities. - Neurological Exam Additional comments: On BIPAP, non communicative - Skin Skin Exam: Warm Assessment and Plan (1) Acute respiratory failure with hypoxia Status: Acute (2) Aspiration pneumonia Status: Acute (3) Altered mental status Status: Acute (4) Pleural effusion, bilateral Status: Acute (5) Diastolic CHF, acute on chronic Status: Acute (6) A-fib Status: Chronic (7) CANDELARIA (acute kidney injury) Status: Acute (8) Hypernatremia Status: Acute (9) HTN (hypertension) Status: Chronic (10) S/P bronchoscopy Status: Acute (11) Hx of seizure disorder Status: Chronic - Assessment and Plan (Free Text) Plan: Pt had L thoracentesis with 750 cc drainage fluid, CXR complete resolution of L Pleural effusion , extubated on BIPAP. With fever 100.2 today Bronchial wahings and Pleura effusion C-S no growth (neg) , ID f/u appreciated, continue Zosyn, Duoneb, Lopressor, Amiodarone and rest of Tx. ICU Time: 40 min.
--- NOTE | 2017-10-04 21:51 | CP.PCM.PN ---
Subjective - Date & Time of Evaluation Date of Evaluation: 10/04/17 Time of Evaluation: 20:20 - Subjective Subjective: E.T came out. He was extubated successfully.He is now on CPAP He is hardly responsive. Patient has no seizures on Lamictal 25 mg Q [address] Winslow on Board for Antibiotics management. Normal VS Objective - Vital Signs/Intake and Output Vital Signs (last 24 hours): Temp Pulse Resp BP Pulse Ox 99.5 F 98 H 29 H 109/53 L 99 10/04/17 16:00 10/04/17 21:13 10/04/17 18:00 10/04/17 21:13 10/04/17 18:00 Intake and Output: 10/04/17 10/05/17 18:59 06:59 Intake Total 2625 Output Total 1880 Balance 745 - Medications Medications: Current Medications Acetaminophen (Tylenol 650mg/20.3ml Solution Ud) 650 mg PO Q6 PRN PRN Reason: fever Last Admin: 10/02/17 20:45 Dose: 650 mg Albuterol/Ipratropium (Duoneb 3 Mg/0.5 Mg (3 Ml) Ud) 3 ml INH RQ4 [facility] Last Admin: 10/04/17 19:21 Dose: 3 ml Amiodarone HCl (Cordarone) 200 mg PO BID [facility] Last Admin: 10/04/17 16:01 Dose: 200 mg Calcium Carbonate (Oscal) 500 mg PO BIDWM [facility] Last Admin: 10/04/17 16:01 Dose: 500 mg Ergocalciferol (Drisdol 50,000 Intl Units Cap) 1 cap PO Q7D [facility] Last Admin: 10/02/17 23:16 Dose: 1 cap Piperacillin Sod/Tazobactam (Sod 2.25 gm/ Sodium Chloride) 100 mls @ 100 mls/ hr IVPB Q6 [facility] PRN Reason: Protocol Last Admin: 10/04/17 21:13 Dose: 100 mls/hr Lamotrigine (Lamictal) 25 mg PO BID [facility] Last Admin: 10/04/17 16:02 Dose: 25 mg Lorazepam (Ativan) 2 mg IVP Q6 PRN PRN Reason: Seizure activity Metoprolol Tartrate (Lopressor) 2.5 mg IVP Q6 [facility] Last Admin: 11/24/17 21:13 Dose: 2.5 mg - Labs Labs: 10/04/17 04:20 10/04/17 04:20 PT 19.0 Seconds (9.8-13.1) H D 10/04/17 04:20 INR 1.7 (0.9-1.2) H D 10/04/17 04:20 APTT 37.4 Seconds (25.6-37.1) H 10/03/17 04:20 Assessment and Plan (1) CANDELARIA (acute kidney injury) Status: Acute (2) Acute respiratory failure Status: Acute (3) Altered mental status Status: Acute (4) Pleural effusion, bilateral Status: Acute (5) Pneumonia Status: Acute (6) Seizure disorder Status: Suspected (7) Encephalopathy Status: Acute
[2017-10-05] MEDS: Metoprolol 1 mg/ml Inj IVP SCH ×4 (03:45→22:13)
[2017-10-05] MEDS: Albuterol-Ipratrop 3 mg / 0.5 (3 ml) UD INH SCH ×6 (04:54→23:36)
[2017-10-05 05:22] LABS: ABG ALLEN TEST YES; ARTERIAL BLOOD GAS HCO3 32.8 mmol/L (21-28); ARTERIAL BLOOD GAS HEMOGLOBIN 8.5 g/dL (11.7-17.4); ARTERIAL BLOOD GAS O2 SAT 100.3 % (95-98); ARTERIAL BLOOD GAS PCO2 57 mm/Hg (35-45); ARTERIAL BLOOD GAS PH 7.41 (7.35-7.45); ARTERIAL BLOOD GAS PO2 157 mm/Hg (80-100); ARTERIAL BLOOD GAS TCO2 37.8 mmol/L (22-28)
[2017-10-05 06:42] LABS: BASO % 0.3 % (0.0-2.0); EOS # 0.3 K/uL (0.0-0.7); HEMOGLOBIN 8.3 g/dL (12.0-18.0); LYMPH # 0.4 K/uL (1.0-4.3); LYMPH % 5.7 % (20.0-40.0); MEAN CELL VOLUME 91.4 fl (80.0-94.0); MEAN CORPUSCULAR HEMOGLOBIN 28.8 pg (27.0-31.0); MEAN CORPUSCULAR HGB CONC 31.5 g/dL (33.0-37.0); MEAN PLATELET VOLUME 9.2 fl (7.2-11.7); MONO # 0.4 K/uL (0.0-0.8); MONO % 5.3 % (0.0-10.0); NEUT # 6.1 K/uL (1.8-7.0); NEUT % 84.7 % (50.0-75.0); PLATELET COUNT 263 K/uL (130-400); RBC 2.89 Mil/uL (4.40-5.90); RED CELL DISTRIBUTION WIDTH 18.7 % (11.5-14.5); WHITE BLOOD COUNT 7.2 K/uL (4.8-10.8)
[2017-10-05 07:01] LABS: ALB/GLOB RATIO 0.8 (1.0-2.1); ALBUMIN 2.7 g/dL (3.5-5.0); CALCIUM 7.8 mg/dL (8.4-10.2)
--- NOTE | 2017-10-05 08:26 | CP.CCUPN ---
CCU Subjective - Physician Review Events Since Last Encounter (Free Text): 10/05/17 08:21 Patient awake, lethergic, on BIPAP, no pressors, no fevere, Rt chest tube in place, events reviewed CCU Objective - Vital Signs / Intake & Output Vital Signs (Last 4 hours): Vital Signs Pulse Resp BP Pulse Ox 10/05/17 08:10 104 H 10/05/17 06:11 100 H 10/05/17 06:00 91 H 32 H 115/48 L 100 Intake and Output (Last 8hrs): Intake & Output 10/04/17 10/05/17 10/05/17 22:59 06:59 14:59 Intake Total 1350 900 Output Total 1130 40 Balance 220 860 Intake: IV 600 200 Intake, Piggyback 200 100 Tube Feeding 350 200 Free Water Flush 200 400 Output: Chest Tube Drainage 130 40 Right Mid-Axillary Chest 130 40 Urine 1000 Urethral (Wang) 1000 Other: # Bowel Movements 1 - Physical Exam Head: Positive for: Atraumatic, Normocephalic Pupils: Positive for: PERRL, Sluggish Conjunctiva: Positive for: Normal. Negative for: Icteric Ears: Positive for: Normal Mouth: Positive for: Moist Mucous Membranes Pharnyx: Negative for: ERYTHEMA Neck: Positive for: Normal Range of Motion. Negative for: JVD Respiratory/Chest: Positive for: Decreased Breath Sounds, Rhonchi (upper airway rhonchi), Tachypneic. Negative for: Accessory Muscle Use, Wheezes Cardiovascular: Positive for: Irregular Rhythm, Peripheal Pulses Present. Negative for: Murmurs, Normal S1, S2, Tachycardic, Bradycardic Abdomen: Positive for: Normal Bowel Sounds. Negative for: Tenderness, Distention, Peritoneal Signs Upper Extremity: Positive for: Edema Lower Extremity: Positive for: Edema, NORMAL PULSES. Negative for: CALF TENDERNESS, Cyanosis Neurological: Positive for: Other (withdraws to deep pain) Skin: Positive for: Warm. Negative for: Rashes Psychiatric: Positive for: Lethargic - Medications Active Medications: Active Medications Generic Name Dose Route Start Last Admin Trade Name Freq PRN Reason Stop Dose Admin Acetaminophen 650 mg 09/29/17 13:49 10/02/17 20:45 Tylenol 650mg/20.3ml Solution Ud PO 650 mg Q6 PRN Administration fever Albuterol/Ipratropium 3 ml 09/28/17 12:00 10/05/17 08:09 Duoneb 3 Mg/0.5 Mg (3 Ml) Ud INH 3 ml RQ4 YUKI Administration Amiodarone HCl 200 mg 09/29/17 17:00 10/04/17 16:01 Cordarone PO 200 mg BID YUKI Administration Calcium Carbonate 500 mg 09/26/17 08:00 10/04/17 16:01 Oscal PO 500 mg BIDWM YUKI Administration Ergocalciferol 1 cap 09/25/17 23:45 10/02/17 23:16 Drisdol 50,000 Intl Units Cap PO 1 cap Q7D YUKI Administration Piperacillin Sod/Tazobactam 100 mls @ 100 mls/hr 10/04/17 16:00 10/05/17 03: 46 Sod 2.25 gm/ Sodium Chloride IVPB 100 mls/hr Q6 YUKI Administration Protocol Lamotrigine 25 mg 09/23/17 18:15 10/04/17 16:02 Lamictal PO 25 mg BID YUKI Administration Metoprolol Tartrate 2.5 mg 09/27/17 10:00 10/05/17 03:45 Lopressor IVP 2.5 mg Q6 YUKI Administration - Patient Studies Lab Studies: Lab Studies 10/05/17 10/05/17 10/05/17 Range/Units 05:30 05:30 04:00 WBC 7.2 (4.8-10.8) K/uL RBC 2.89 L (4.40-5.90) Mil/uL Hgb 8.3 L (12.0-18.0) g/dL Hct 26.4 L (35.0-51.0) % MCV 91.4 (80.0-94.0) fl MCH 28.8 (27.0-31.0) pg MCHC 31.5 L (33.0-37.0) g/dL RDW 18.7 H (11.5-14.5) % Plt Count 263 (130-400) K/uL MPV 9.2 (7.2-11.7) fl Neut % (Auto) 84.7 H (50.0-75.0) % Lymph % (Auto) 5.7 L (20.0-40.0) % Garrard % (Auto) 5.3 (0.0-10.0) % Eos % (Auto) 4.0 (0.0-4.0) % Baso % (Auto) 0.3 (0.0-2.0) % Neut # 6.1 (1.8-7.0) K/uL Lymph # 0.4 L (1.0-4.3) K/uL Garrard # 0.4 (0.0-0.8) K/uL Eos # 0.3 (0.0-0.7) K/uL Baso # 0.0 (0.0-0.2) K/uL pCO2 57 H (35-45) mm/Hg pO2 157 H (80-100) mm/Hg HCO3 32.8 H (21-28) mmol/L ABG pH 7.41 (7.35-7.45) ABG Total CO2 37.8 H (22-28) mmol/L ABG O2 Saturation 100.3 H (95-98) % ABG O2 Content 12.0 L (15-23) ML/dL ABG Base Excess 10.1 H (-2.0-3.0) mmol/L ABG Hemoglobin 8.5 L (11.7-17.4) g/dL ABG Carboxyhemoglobin 2.0 H (0.5-1.5) % POC ABG HHb (Measured) -0.3 L (0.0-5.0) % ABG Methemoglobin 0.8 (0.0-3.0) % ABG O2 Capacity 12.0 L (16-24) mL/dL Broderick Test Yes A-a O2 Difference 128.0 mm/Hg Hgb O2 Saturation 97.5 (95.0-98.0) % Vent Mode Bipap Mechanical Rate 14 FiO2 50.0 % Inspiratory BiPAP 14 Expiratory BiPAP 6 Sodium 155 H (132-148) mmol/l Potassium 4.1 (3.6-5.0) MMOL/L Chloride 113 H (98-107) mmol/L Carbon Dioxide 36 H (22-30) mmol/L Anion Gap 10 (10-20) BUN 98 H (9-20) mg/dl Creatinine 2.5 H (0.8-1.5) mg/dl Est GFR ( Amer) 30 Est GFR (Non-Af Amer) 25 Random Glucose 134 H (75-110) mg/dL Calcium 7.8 L (8.4-10.2) mg/dL Total Bilirubin 0.4 (0.2-1.3) mg/dl AST 56 (17-59) U/L ALT 34 (21-72) U/L Alkaline Phosphatase 69 (38-126) U/L Total Protein 6.1 L (6.3-8.2) G/DL Albumin 2.7 L (3.5-5.0) g/dL Globulin 3.3 (2.2-3.9) gm/dL Albumin/Globulin Ratio 0.8 L (1.0-2.1) Urine Creatinine (20-370) mg/dL Urine Microalbumin mg/dL Microalb/Creat Ratio (<30) 10/03/ Range/Units 06:20 WBC (4.8-10.8) K/uL RBC (4.40-5.90) Mil/uL Hgb (12.0-18.0) g/dL Hct (35.0-51.0) % MCV (80.0-94.0) fl MCH (27.0-31.0) pg MCHC (33.0-37.0) g/dL RDW (11.5-14.5) % Plt Count (130-400) K/uL MPV (7.2-11.7) fl Neut % (Auto) (50.0-75.0) % Lymph % (Auto) (20.0-40.0) % Garrard % (Auto) (0.0-10.0) % Eos % (Auto) (0.0-4.0) % Baso % (Auto) (0.0-2.0) % Neut # (1.8-7.0) K/uL Lymph # (1.0-4.3) K/uL Garrard # (0.0-0.8) K/uL Eos # (0.0-0.7) K/uL Baso # (0.0-0.2) K/uL pCO2 (35-45) mm/Hg pO2 (80-100) mm/Hg HCO3 (21-28) mmol/L ABG pH (7.35-7.45) ABG Total CO2 (22-28) mmol/L ABG O2 Saturation (95-98) % ABG O2 Content (15-23) ML/dL ABG Base Excess (-2.0-3.0) mmol/L ABG Hemoglobin (11.7-17.4) g/dL ABG Carboxyhemoglobin (0.5-1.5) % POC ABG HHb (Measured) (0.0-5.0) % ABG Methemoglobin (0.0-3.0) % ABG O2 Capacity (16-24) mL/dL Broderick Test A-a O2 Difference mm/Hg Hgb O2 Saturation (95.0-98.0) % Vent Mode Mechanical Rate FiO2 % Inspiratory BiPAP Expiratory BiPAP Sodium (132-148) mmol/l Potassium (3.6-5.0) MMOL/L Chloride (98-107) mmol/L Carbon Dioxide (22-30) mmol/L Anion Gap (10-20) BUN (9-20) mg/dl Creatinine (0.8-1.5) mg/dl Est GFR ( Amer) Est GFR (Non-Af Amer) Random Glucose (75-110) mg/dL Calcium (8.4-10.2) mg/dL Total Bilirubin (0.2-1.3) mg/dl AST (17-59) U/L ALT (21-72) U/L Alkaline Phosphatase (38-126) U/L Total Protein (6.3-8.2) G/DL Albumin (3.5-5.0) g/dL Globulin (2.2-3.9) gm/dL Albumin/Globulin Ratio (1.0-2.1) Urine Creatinine 71 (20-370) mg/dL Urine Microalbumin 6.9 mg/dL Microalb/Creat Ratio 96 H (<30) Laboratory Results - last 24 hr 10/03/17 10/05/17 10/05/17 06:20 04:00 05:30 WBC 7.2 RBC 2.89 L Hgb 8.3 L Hct 26.4 L MCV 91.4 MCH 28.8 MCHC 31.5 L RDW 18.7 H Plt Count 263 MPV 9.2 Neut % (Auto) 84.7 H Lymph % (Auto) 5.7 L Garrard % (Auto) 5.3 Eos % (Auto) 4.0 Baso % (Auto) 0.3 Neut # 6.1 Lymph # 0.4 L Garrard # 0.4 Eos # 0.3 Baso # 0.0 pCO2 57 H pO2 157 H HCO3 32.8 H ABG pH 7.41 ABG Total CO2 37.8 H ABG O2 Saturation 100.3 H ABG O2 Content 12.0 L ABG Base Excess 10.1 H ABG Hemoglobin 8.5 L ABG Carboxyhemoglobin 2.0 H POC ABG HHb (Measured) -0.3 L ABG Methemoglobin 0.8 ABG O2 Capacity 12.0 L Broderick Test Yes A-a O2 Difference 128.0 Hgb O2 Saturation 97.5 Vent Mode Bipap Mechanical Rate 14 FiO2 50.0 Inspiratory BiPAP 14 Expiratory BiPAP 6 Sodium Potassium Chloride Carbon Dioxide Anion Gap BUN Creatinine Est GFR ( Amer) Est GFR (Non-Af Amer) Random Glucose Calcium Total Bilirubin AST ALT Alkaline Phosphatase Total Protein Albumin Globulin Albumin/Globulin Ratio Urine Creatinine 71 Urine Microalbumin 6.9 Microalb/Creat Ratio 96 H 10/05/17 05:30 WBC RBC Hgb Hct MCV MCH MCHC RDW Plt Count MPV Neut % (Auto) Lymph % (Auto) Garrard % (Auto) Eos % (Auto) Baso % (Auto) Neut # Lymph # Garrard # Eos # Baso # pCO2 pO2 HCO3 ABG pH ABG Total CO2 ABG O2 Saturation ABG O2 Content ABG Base Excess ABG Hemoglobin ABG Carboxyhemoglobin POC ABG HHb (Measured) ABG Methemoglobin ABG O2 Capacity Broderick Test A-a O2 Difference Hgb O2 Saturation Vent Mode Mechanical Rate FiO2 Inspiratory BiPAP Expiratory BiPAP Sodium 155 H Potassium 4.1 Chloride 113 H Carbon Dioxide 36 H Anion Gap 10 BUN 98 H Creatinine 2.5 H Est GFR ( Amer) 30 Est GFR (Non-Af Amer) 25 Random Glucose 134 H Calcium 7.8 L Total Bilirubin 0.4 AST 56 ALT 34 Alkaline Phosphatase 69 Total Protein 6.1 L Albumin 2.7 L Globulin 3.3 Albumin/Globulin Ratio 0.8 L Urine Creatinine Urine Microalbumin Microalb/Creat Ratio Fingerstick Blood Sugar Results: 83 Assessment/Plan - Assessment and Plan (Free Text) Assessment: A/P Respiratory failure, pneumonia, CHF, pleural effusion s/p Rt chest tube, A Fib, CVA, seizer, HTN, SUSAN, encephalopathy - BIPAP - Pulmonary toilets - Antibiotics - Chest tube drainage - Continue meds - Poor prognosis critical care 35 min
--- NOTE | 2017-10-05 08:58 | RAD ---
HISTORY: Recent Thoracentesis follow up COMPARISON: 10/04/2017 FINDINGS: LUNGS: Bibasilar hazy densities noted possibly representing fluid or infiltrate. Please note assessment is limited PLEURA: Right chest tube is in place. CARDIOVASCULAR: Normal. OSSEOUS STRUCTURES: No significant abnormalities. VISUALIZED UPPER ABDOMEN: Normal. OTHER FINDINGS: Pacemaker, and pacer leads are noted. IMPRESSION: Bibasilar hazy density question residual infiltrate or effusion. Right chest tube in place. Technically limited exam.
[2017-10-05 11:12] LABS: EOSINOPHIL 1 % (0-7); LYMPHOCYTE 6 % (20-50); MONOCYTE 6 % (0-10); NEUTROPHIL 87 % (42-75); TOTAL CELLS COUNTED 100
[2017-10-05 11:13] LABS: ANISOCYTOSIS SLIGHT; PLATELET ESTIMATE NORMAL (NORMAL)
[2017-10-05 11:14] LABS: HYPOCHROMIC MODERATE; OVALOCYTES SLIGHT; TEARDROP CELLS SLIGHT; TOXIC GRANULATION PRESENT
--- NOTE | 2017-10-05 16:38 | CP.PCM.PN ---
Subjective - Date & Time of Evaluation Date of Evaluation: 10/05/17 Time of Evaluation: 12:30 - Subjective Subjective: Covering for PMD Dr. Escamilla All chart and clinical data reviewed. Patient seen bedside. Elderly male chronically ill lying in bed , appears lethargic , on BIPAP 14/6/50 % saturating 97 % HR 108 BP 125/56 Tmax 99.9 ABG 57/157/32/7.4 Patient opens his eyes when calls his name , does not follow up any commands bedside No acute issues overnight WBC 7 K Hgb 8.3 plt 263 K BUN/Cr 96/ 2.5 Na 155 K 4.1 INR 1.7 right chest tube in place with 170 ml output last 24 hours Objective - Vital Signs/Intake and Output Vital Signs (last 24 hours): Temp Pulse Resp BP Pulse Ox 99.0 F 109 H 26 H 122/62 100 10/05/17 12:00 10/05/17 16:01 10/05/17 14:00 10/05/17 16:01 10/05/17 14:00 Intake and Output: 10/05/17 10/05/17 06:59 18:59 Intake Total 1350 860 Output Total 40 Balance 1310 860 - Medications Medications: Current Medications Acetaminophen (Tylenol 650mg/20.3ml Solution Ud) 650 mg PO Q6 PRN PRN Reason: fever Last Admin: 10/02/17 20:45 Dose: 650 mg Albuterol/Ipratropium (Duoneb 3 Mg/0.5 Mg (3 Ml) Ud) 3 ml INH RQ4 [facility] Last Admin: 10/05/17 15:38 Dose: 3 ml Amiodarone HCl (Cordarone) 200 mg PO BID [facility] Last Admin: 10/05/17 16:01 Dose: 200 mg Calcium Carbonate (Oscal) 500 mg PO BIDWM [facility] Last Admin: 10/05/17 16:00 Dose: 500 mg Ergocalciferol (Drisdol 50,000 Intl Units Cap) 1 cap PO Q7D [facility] Last Admin: 10/02/17 23:16 Dose: 1 cap Piperacillin Sod/Tazobactam (Sod 2.25 gm/ Sodium Chloride) 100 mls @ 100 mls/ hr IVPB Q6 YUKI PRN Reason: Protocol Last Admin: 10/05/17 15:55 Dose: 100 mls/hr Lamotrigine (Lamictal) 25 mg PO BID [facility] Last Admin: 10/05/17 16:00 Dose: 25 mg Metoprolol Tartrate (Lopressor) 2.5 mg IVP Q6 [facility] Last Admin: 10/05/17 15:58 Dose: 2.5 mg - Labs Labs: 10/05/17 05:30 10/05/17 05:30 PT 19.0 Seconds (9.8-13.1) H D 10/04/17 04:20 INR 1.7 (0.9-1.2) H D 10/04/17 04:20 APTT 37.4 Seconds (25.6-37.1) H 10/03/17 04:20 - Constitutional Appears: Toxic, Chronically Ill, Other (lethargic on Bipap ) - Head Exam Head Exam: ATRAUMATIC, NORMOCEPHALIC - Eye Exam Eye Exam: PERRL - ENT Exam ENT Exam: Mucous Membranes Dry - Neck Exam Neck Exam: Full ROM, Normal Inspection - Respiratory Exam Respiratory Exam: Clear to Ausculation Bilateral. absent: Rales, Rhonchi, Wheezes, Respiratory Distress - Cardiovascular Exam Cardiovascular Exam: Irregular Rhythm, +S1, +S2. absent: JVD - GI/Abdominal Exam GI & Abdominal Exam: Soft, Normal Bowel Sounds. 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 As per , she feels patient had clonic movements several days ago. Patient was found to be Hypotermic with SOB associated with cough unable to bring out phlegms, also with CXr showing bilateral pleural effusions and Infiltrates . INR 5.6, PTT 68.0, PT 65.9 His hospital course has been complicated by hypoxia requiring intubation, right pig tail cathether placement and left thoracentesis for pleural effusions. He has been followed by neuro , pulmonary , ID, nephro and cardiology . He has been on broad spectrum antibiotics for Aspiration Pneumonia and has been diuresing well and developed CANDELARIA and hypernatremia. At present extubated on BIPAP , lethargic 1. Acute respiratory failure with hypoxia Acute etiology multifactorial -- pleural effusion , CHF, pneumonia was intubated and now extubated on BIPAp 14/6/50 % s/p left thorcenthesis with removal 750 ml fluid and with right pig tail in place Continue duonebs, IV antibiotics pulmonary on consult 2. Aspiration pneumonia Acute ID and pulmonary on consult Continue Zosyn 3.Altered mental status unclear etiology possibly Metabolic encephalopathy due to hypoxemia, pneumonia or related to uncontrolled seizures CT head showed no acute pathology Neurology consulted on lamictal for seizure control Continue Bipap and IV antibiotics 4. Pleural effusion, bilateral s/p left thoracenthesis by IR with removal 750 ml fluid and right pig tail placement repeat CXR today showed much improvement in pleural effusions pulmonary and CTS on consult 5. Diastolic CHF, acute on chronic Acute cardiology on board Diuretics on hold due to worsening renal function and hypernatremia low salt diet 6. A-fib Chronic cardiology on consult Dr. Castro on amiodarone for rate control anticoagulation on hold on metoprolol IV 7.CANDELARIA (acute kidney injury)on CKD satge III worsening renal function due to diuretics Cr improving , today 2.5 Nephrology on consult Hold diuretics for now 8. Hypernatremia Acute due to dehydration low salt diet hold diuretics 9. HTN (hypertension) Chronic on Metoprolol 10.S/P bronchoscopy ans BAL Acute 11. Hx of seizure disorder Chronic neurology consulted on lamictal 12. Anemia of chronic disease Hgb 8.3 Monitor for now 13.Coumadin toxicity INR was 5.6 on admission Coumadin on hold Today INR 1.7 14. Frailty/ poor ,guarded prognosis patient is full code is surrogate decision maker 15. Vitamin D deficiency on ergocalciferol
--- NOTE | 2017-10-05 17:30 | CP.PCM.PN ---
Subjective - Date & Time of Evaluation Date of Evaluation: 10/05/17 Time of Evaluation: 17:29 - Subjective Subjective: Follow up Nephrology Consultation Note Assessment: critical Acute Kidney Injury (N17.9) likely due to pre-renal state/aggressive diuresis, Hypernatremia, hemodynamic (relative low BP and tachycardia ) ? sepsis Chronic Kidney Disease (N18.3) Stage 3 Anemia, vit D def Acute respi failure, diastolic CHF, b/l pleural effusion, A fib Plan No acute need for renal replacement therapy at this time. Hypertension control with meds as ordered. Patient not on ACEI/ARB due to CANDELARIA Monitor Input/Output, daily weights and renal function with basic metabolic panel pt now on water flushes 200 mL 4 times a day via NG tube. may need IV lasix in next 1-2 days if more edematous state Dose meds/antibiotics for reduced GFR. Avoid fleets enema/magnesium based laxatives. Avoid nephrotoxins/NSAIDs/ iodinated contrast (unless needed emergently) Glycemic control Further work up for as per primary team Thanks for allowing me to participate in care of your patient. Will follow patient with you. Please call if any Qs. d/w and ICU team Dr Ghanshyam Clarke Office: [phone] Subjective: Noted events overnight. Patients extubated, but non communicative Physical Examination: General Appearance: ill appearing, in no acute respiratory distress Vitals reviewed and noted as below Head; Atraumatic, normocephalic ENT: no ulcers no thrush. orally intubated EYES: Pupils are equal, round and reactive to light accommodation. Sclera is anicteric. Neck; supple no lymphadenopathy, no thyromegaly or bruit Lungs: Normal respiratory rate/effort. Breath sounds bilateral equal and reduced at bases Heart: normal rate. s1s2 normal. No rub or gallop. Extremities: pedal edema +. Neurological: Patient is extubated, but letahrgic and non communicative Skin: Warm and dry. Normal turgor. No rash. Palpitation: Normal elasticity for age Abdomen: Abdomen is soft. Bowel sounds +. There is no abdominal tenderness, no guarding/rigidity or organomegaly : kidney or bladder not palpable. has ok psych; unable Labs/imaging reviewed. Past medical history, past surgical history, family history, social history, allergy reviewed family hx; no hx of CKD. non contributory Objective - Vital Signs/Intake and Output Vital Signs (last 24 hours): Temp Pulse Resp BP Pulse Ox 99.0 F 109 H 26 H 122/62 100 10/05/17 12:00 10/05/17 16:01 10/05/17 14:00 10/05/17 16:01 10/05/17 14:00 Intake and Output: 10/05/17 10/05/17 06:59 18:59 Intake Total 1350 860 Output Total 40 Balance 1310 860 - Medications Medications: Current Medications Acetaminophen (Tylenol 650mg/20.3ml Solution Ud) 650 mg PO Q6 PRN PRN Reason: fever Last Admin: 10/02/17 20:45 Dose: 650 mg Albuterol/Ipratropium (Duoneb 3 Mg/0.5 Mg (3 Ml) Ud) 3 ml INH RQ4 [facility] Last Admin: 10/05/17 15:38 Dose: 3 ml Amiodarone HCl (Cordarone) 200 mg PO BID [facility] Last Admin: 10/05/17 16:01 Dose: 200 mg Calcium Carbonate (Oscal) 500 mg PO BIDWM [facility] Last Admin: 10/05/17 16:00 Dose: 500 mg Ergocalciferol (Drisdol 50,000 Intl Units Cap) 1 cap PO Q7D [facility] Last Admin: 10/02/17 23:16 Dose: 1 cap Piperacillin Sod/Tazobactam (Sod 2.25 gm/ Sodium Chloride) 100 mls @ 100 mls/ hr IVPB Q6 [facility]I PRN Reason: Protocol Last Admin: 10/05/17 15:55 Dose: 100 mls/hr Lamotrigine (Lamictal) 25 mg PO BID [facility] Last Admin: 10/05/17 16:00 Dose: 25 mg Metoprolol Tartrate (Lopressor) 2.5 mg IVP Q6 [facility] Last Admin: 10/05/17 15:58 Dose: 2.5 mg - Labs Labs: 10/05/17 05:30 10/05/17 05:30 PT 19.0 Seconds (9.8-13.1) H D 10/04/17 04:20 INR 1.7 (0.9-1.2) H D 10/04/17 04:20 APTT 37.4 Seconds (25.6-37.1) H 10/03/17 04:20
--- NOTE | 2017-10-05 19:55 | CP.PCM.PN ---
Subjective - Date & Time of Evaluation Date of Evaluation: 10/05/17 Time of Evaluation: 19:00 - Subjective Subjective: Normal VS INR 1.7 Lethargic, opens his eyes to the voice of his calling him. Not following commands, on CPAP Normal VS No seizures Objective - Vital Signs/Intake and Output Vital Signs (last 24 hours): Temp Pulse Resp BP Pulse Ox 98.4 F 87 26 H 109/55 L 100 10/05/17 16:00 10/05/17 19:30 10/05/17 18:00 10/05/17 18:00 10/05/17 18:00 Intake and Output: 10/05/17 10/06/17 18:59 06:59 Intake Total 1564 Output Total 900 Balance 664 - Medications Medications: Current Medications Acetaminophen (Tylenol 650mg/20.3ml Solution Ud) 650 mg PO Q6 PRN PRN Reason: fever Last Admin: 10/02/17 20:45 Dose: 650 mg Albuterol/Ipratropium (Duoneb 3 Mg/0.5 Mg (3 Ml) Ud) 3 ml INH RQ4 [facility] Last Admin: 10/05/17 19:28 Dose: 3 ml Amiodarone HCl (Cordarone) 200 mg PO BID [facility] Last Admin: 10/05/17 16:01 Dose: 200 mg Calcium Carbonate (Oscal) 500 mg PO BIDWM [facility] Last Admin: 10/05/17 16:00 Dose: 500 mg Ergocalciferol (Drisdol 50,000 Intl Units Cap) 1 cap PO Q7D [facility] Last Admin: 10/02/17 23:16 Dose: 1 cap Piperacillin Sod/Tazobactam (Sod 2.25 gm/ Sodium Chloride) 100 mls @ 100 mls/ hr IVPB Q6 [facility] PRN Reason: Protocol Last Admin: 10/05/17 15:55 Dose: 100 mls/hr Lamotrigine (Lamictal) 25 mg PO BID [facility] Last Admin: 10/05/17 16:00 Dose: 25 mg Metoprolol Tartrate (Lopressor) 2.5 mg IVP Q6 [facility] Last Admin: 10/05/17 15:58 Dose: 2.5 mg - Labs Labs: 10/05/17 05:30 10/05/17 05:30 PT 19.0 Seconds (9.8-13.1) H D 10/04/17 04:20 INR 1.7 (0.9-1.2) H D 10/04/17 04:20 APTT 37.4 Seconds (25.6-37.1) H 10/03/17 04:20 Assessment and Plan (1) CANDELARIA (acute kidney injury) Status: Acute (2) Acute respiratory failure Status: Acute (3) Altered mental status Status: Acute (4) Pleural effusion, bilateral Status: Acute (5) Pneumonia Status: Acute (6) Seizure disorder Status: Suspected (7) Encephalopathy Status: Acute
[2017-10-06] MEDS: Albuterol-Ipratrop 3 mg / 0.5 (3 ml) UD INH SCH ×5 (04:14→19:49)
[2017-10-06 04:20] LABS: ABG ALLEN TEST YES; ARTERIAL BLOOD GAS HCO3 35.6 mmol/L (21-28); ARTERIAL BLOOD GAS HEMOGLOBIN 8.6 g/dL (11.7-17.4); ARTERIAL BLOOD GAS O2 CAPACITY 12.2 mL/dL (16-24); ARTERIAL BLOOD GAS O2 CONTENT 12.2 ML/dL (15-23); ARTERIAL BLOOD GAS PCO2 60 mm/Hg (35-45); ARTERIAL BLOOD GAS PH 7.43 (7.35-7.45); ARTERIAL BLOOD GAS PO2 178 mm/Hg (80-100); ARTERIAL BLOOD GAS TCO2 41.6 mmol/L (22-28)
[2017-10-06] MEDS: Metoprolol 1 mg/ml Inj IVP SCH ×4 (05:14→22:05)
[2017-10-06 06:53] LABS: HEMOGLOBIN 8.3 g/dL (12.0-18.0); MEAN CELL VOLUME 93.7 fl (80.0-94.0); MEAN CORPUSCULAR HEMOGLOBIN 28.8 pg (27.0-31.0); MEAN CORPUSCULAR HGB CONC 30.8 g/dL (33.0-37.0); RBC 2.87 Mil/uL (4.40-5.90); RED CELL DISTRIBUTION WIDTH 18.5 % (11.5-14.5); WHITE BLOOD COUNT 5.7 K/uL (4.8-10.8)
[2017-10-06 07:05] LABS: INR 1.4 (0.9-1.2); PROTHROMBIN TIME 16.4 Seconds (9.8-13.1)
[2017-10-06 07:12] LABS: ALB/GLOB RATIO 0.8 (1.0-2.1); ALBUMIN 2.6 g/dL (3.5-5.0); CALCIUM 7.8 mg/dL (8.4-10.2)
--- NOTE | 2017-10-06 07:28 | CP.CCUPN ---
CCU Subjective - Physician Review Events Since Last Encounter (Free Text): 10/06/17 07:28 Patient awake, lethargic, on BIPAP, no pressors, no fever, Rt chest tube in place, events reviewed CCU Objective - Vital Signs / Intake & Output Vital Signs (Last 4 hours): Vital Signs Temp Pulse Resp BP Pulse Ox 10/06/17 05:14 99 H 112/52 L 10/06/17 04:16 83 10/06/17 04:00 98.1 F 88 24 125/62 100 Intake and Output (Last 8hrs): Intake & Output 10/05/17 10/06/17 10/06/17 22:59 06:59 14:59 Intake Total 1204 300 Output Total 900 800 Balance 304 -500 Intake: IV 4 Intake, Piggyback 200 100 Tube Feeding 350 200 Free Water Flush 650 Output: Chest Tube Drainage 150 Right Mid-Axillary Chest 150 Urine 750 800 Urethral (Wang) 750 800 Other: # Bowel Movements 1 - Physical Exam Head: Positive for: Atraumatic, Normocephalic Pupils: Positive for: PERRL, Sluggish Extroacular Muscles: Positive for: EOMI Conjunctiva: Positive for: Normal. Negative for: Icteric Ears: Positive for: Normal Mouth: Positive for: Moist Mucous Membranes Pharnyx: Negative for: ERYTHEMA Neck: Positive for: Normal Range of Motion. Negative for: JVD Respiratory/Chest: Positive for: Decreased Breath Sounds, Rhonchi (upper airway rhonchi), Tachypneic. Negative for: Accessory Muscle Use, Wheezes Cardiovascular: Positive for: Irregular Rhythm, Peripheal Pulses Present. Negative for: Murmurs, Normal S1, S2, Tachycardic, Bradycardic Abdomen: Positive for: Normal Bowel Sounds. Negative for: Tenderness, Distention, Peritoneal Signs Upper Extremity: Positive for: Edema Lower Extremity: Positive for: Edema, NORMAL PULSES. Negative for: CALF TENDERNESS, Cyanosis Neurological: Positive for: Other (withdraws to deep pain) Skin: Positive for: Warm. Negative for: Rashes Psychiatric: Positive for: Lethargic - Medications Active Medications: Active Medications Generic Name Dose Route Start Last Admin Trade Name Freq PRN Reason Stop Dose Admin Acetaminophen 650 mg 09/29/17 13:49 10/02/17 20:45 Tylenol 650mg/20.3ml Solution Ud PO 650 mg Q6 PRN Administration fever Albuterol/Ipratropium 3 ml 09/28/17 12:00 10/06/17 04:14 Duoneb 3 Mg/0.5 Mg (3 Ml) Ud INH 3 ml RQ4 YUKI Administration Amiodarone HCl 200 mg 09/29/17 17:00 10/05/17 16:01 Cordarone PO 200 mg BID YUKI Administration Calcium Carbonate 500 mg 09/26/17 08:00 10/05/17 16:00 Oscal PO 500 mg BIDWM YUKI Administration Ergocalciferol 1 cap 09/25/17 23:45 10/02/17 23:16 Drisdol 50,000 Intl Units Cap PO 1 cap Q7D YUKI Administration Piperacillin Sod/Tazobactam 100 mls @ 100 mls/hr 10/04/17 16:00 10/06/17 05: 13 Sod 2.25 gm/ Sodium Chloride IVPB 100 mls/hr Q6 YUKI Administration Protocol Lamotrigine 25 mg 09/23/17 18:15 10/05/17 16:00 Lamictal PO 25 mg BID YUKI Administration Metoprolol Tartrate 2.5 mg 09/27/17 10:00 10/06/17 05:14 Lopressor IVP 2.5 mg Q6 YUKI Administration - Patient Studies Lab Studies: Lab Studies 10/06/17 10/06/17 10/06/17 Range/Units 06:44 06:44 06:44 WBC 5.7 (4.8-10.8) K/uL RBC 2.87 L (4.40-5.90) Mil/uL Hgb 8.3 L (12.0-18.0) g/dL Hct 26.9 L (35.0-51.0) % MCV 93.7 D (80.0-94.0) fl MCH 28.8 (27.0-31.0) pg MCHC 30.8 L (33.0-37.0) g/dL RDW 18.5 H (11.5-14.5) % Plt Count 289 (130-400) K/uL Neutrophils % (Manual) (42-75) % Lymphocytes % (Manual) (20-50) % Monocytes % (Manual) (0-10) % Eosinophils % (Manual) (0-7) % Toxic Granulation Platelet Estimate (NORMAL) Hypochromasia (manual) Anisocytosis (manual) Tear Drop Cells Ovalocytes PT 16.4 H (9.8-13.1) Seconds INR 1.4 H (0.9-1.2) pCO2 (35-45) mm/Hg pO2 (80-100) mm/Hg HCO3 (21-28) mmol/L ABG pH (7.35-7.45) ABG Total CO2 (22-28) mmol/L ABG O2 Saturation (95-98) % ABG O2 Content (15-23) ML/dL ABG Base Excess (-2.0-3.0) mmol/L ABG Hemoglobin (11.7-17.4) g/dL ABG Carboxyhemoglobin (0.5-1.5) % POC ABG HHb (Measured) (0.0-5.0) % ABG Methemoglobin (0.0-3.0) % ABG O2 Capacity (16-24) mL/dL Broderick Test A-a O2 Difference mm/Hg Hgb O2 Saturation (95.0-98.0) % Vent Mode Mechanical Rate FiO2 % Inspiratory BiPAP Expiratory BiPAP Sodium 158 H (132-148) mmol/l Potassium 4.0 (3.6-5.0) MMOL/L Chloride 116 H (98-107) mmol/L Carbon Dioxide 36 H (22-30) mmol/L Anion Gap 10 (10-20) BUN 88 H (9-20) mg/dl Creatinine 2.1 H (0.8-1.5) mg/dl Est GFR ( Amer) 37 Est GFR (Non-Af Amer) 31 Random Glucose 130 H (75-110) mg/dL Calcium 7.8 L (8.4-10.2) mg/dL Total Bilirubin 0.3 (0.2-1.3) mg/dl AST 40 (17-59) U/L ALT 39 (21-72) U/L Alkaline Phosphatase 73 (38-126) U/L Total Protein 5.9 L (6.3-8.2) G/DL Albumin 2.6 L (3.5-5.0) g/dL Globulin 3.3 (2.2-3.9) gm/dL Albumin/Globulin Ratio 0.8 L (1.0-2.1) 11/26/17 11/25/17 Range/Units 04:09 05:30 WBC (4.8-10.8) K/uL RBC (4.40-5.90) Mil/uL Hgb (12.0-18.0) g/dL Hct (35.0-51.0) % MCV (80.0-94.0) fl MCH (27.0-31.0) pg MCHC (33.0-37.0) g/dL RDW (11.5-14.5) % Plt Count (130-400) K/uL Neutrophils % (Manual) 87 H (42-75) % Lymphocytes % (Manual) 6 L (20-50) % Monocytes % (Manual) 6 (0-10) % Eosinophils % (Manual) 1 (0-7) % Toxic Granulation Present Platelet Estimate Normal (NORMAL) Hypochromasia (manual) Moderate Anisocytosis (manual) Slight Tear Drop Cells Slight Ovalocytes Slight PT (9.8-13.1) Seconds INR (0.9-1.2) pCO2 60 H (35-45) mm/Hg pO2 178 H (80-100) mm/Hg HCO3 35.6 H (21-28) mmol/L ABG pH 7.43 (7.35-7.45) ABG Total CO2 41.6 H (22-28) mmol/L ABG O2 Saturation 100.0 H (95-98) % ABG O2 Content 12.2 L (15-23) ML/dL ABG Base Excess 13.7 H (-2.0-3.0) mmol/L ABG Hemoglobin 8.6 L (11.7-17.4) g/dL ABG Carboxyhemoglobin 1.7 H (0.5-1.5) % POC ABG HHb (Measured) 0.0 (0.0-5.0) % ABG Methemoglobin 0.8 (0.0-3.0) % ABG O2 Capacity 12.2 L (16-24) mL/dL Broderick Test Yes A-a O2 Difference 104.0 mm/Hg Hgb O2 Saturation 97.5 (95.0-98.0) % Vent Mode Bipap Mechanical Rate 14 FiO2 50.0 % Inspiratory BiPAP 14 Expiratory BiPAP 6 Sodium (132-148) mmol/l Potassium (3.6-5.0) MMOL/L Chloride (98-107) mmol/L Carbon Dioxide (22-30) mmol/L Anion Gap (10-20) BUN (9-20) mg/dl Creatinine (0.8-1.5) mg/dl Est GFR ( Amer) Est GFR (Non-Af Amer) Random Glucose (75-110) mg/dL Calcium (8.4-10.2) mg/dL Total Bilirubin (0.2-1.3) mg/dl AST (17-59) U/L ALT (21-72) U/L Alkaline Phosphatase (38-126) U/L Total Protein (6.3-8.2) G/DL Albumin (3.5-5.0) g/dL Globulin (2.2-3.9) gm/dL Albumin/Globulin Ratio (1.0-2.1) Laboratory Results - last 24 hr 10/05/17 10/06/17 10/06/17 05:30 04:09 06:44 WBC 5.7 RBC 2.87 L Hgb 8.3 L Hct 26.9 L MCV 93.7 D MCH 28.8 MCHC 30.8 L RDW 18.5 H Plt Count 289 Neutrophils % (Manual) 87 H Lymphocytes % (Manual) 6 L Monocytes % (Manual) 6 Eosinophils % (Manual) 1 Toxic Granulation Present Platelet Estimate Normal Hypochromasia (manual) Moderate Anisocytosis (manual) Slight Tear Drop Cells Slight Ovalocytes Slight PT INR pCO2 60 H pO2 178 H HCO3 35.6 H ABG pH 7.43 ABG Total CO2 41.6 H ABG O2 Saturation 100.0 H ABG O2 Content 12.2 L ABG Base Excess 13.7 H ABG Hemoglobin 8.6 L ABG Carboxyhemoglobin 1.7 H POC ABG HHb (Measured) 0.0 ABG Methemoglobin 0.8 ABG O2 Capacity 12.2 L Broderick Test Yes A-a O2 Difference 104.0 Hgb O2 Saturation 97.5 Vent Mode Bipap Mechanical Rate 14 FiO2 50.0 Inspiratory BiPAP 14 Expiratory BiPAP 6 Sodium Potassium Chloride Carbon Dioxide Anion Gap BUN Creatinine Est GFR ( Amer) Est GFR (Non-Af Amer) Random Glucose Calcium Total Bilirubin AST ALT Alkaline Phosphatase Total Protein Albumin Globulin Albumin/Globulin Ratio 10/06/17 10/06/17 06:44 06:44 WBC RBC Hgb Hct MCV MCH MCHC RDW Plt Count Neutrophils % (Manual) Lymphocytes % (Manual) Monocytes % (Manual) Eosinophils % (Manual) Toxic Granulation Platelet Estimate Hypochromasia (manual) Anisocytosis (manual) Tear Drop Cells Ovalocytes PT 16.4 H INR 1.4 H pCO2 pO2 HCO3 ABG pH ABG Total CO2 ABG O2 Saturation ABG O2 Content ABG Base Excess ABG Hemoglobin ABG Carboxyhemoglobin POC ABG HHb (Measured) ABG Methemoglobin ABG O2 Capacity Broderick Test A-a O2 Difference Hgb O2 Saturation Vent Mode Mechanical Rate FiO2 Inspiratory BiPAP Expiratory BiPAP Sodium 158 H Potassium 4.0 Chloride 116 H Carbon Dioxide 36 H Anion Gap 10 BUN 88 H Creatinine 2.1 H Est GFR ( Amer) 37 Est GFR (Non-Af Amer) 31 Random Glucose 130 H Calcium 7.8 L Total Bilirubin 0.3 AST 40 ALT 39 Alkaline Phosphatase 73 Total Protein 5.9 L Albumin 2.6 L Globulin 3.3 Albumin/Globulin Ratio 0.8 L Fingerstick Blood Sugar Results: 83 Assessment/Plan - Assessment and Plan (Free Text) Assessment: A/P Respiratory failure, pneumonia, CHF, pleural effusion s/p Rt chest tube, A Fib, CVA, seizer, HTN, SUSAN, encephalopathy - BIPAP - Pulmonary toilets - Antibiotics - Chest tube drainage - Continue meds - Poor prognosis critical care 35 min
--- NOTE | 2017-10-06 08:00 | CP.PCM.PN ---
Subjective - Date & Time of Evaluation Date of Evaluation: 10/06/17 Time of Evaluation: 08:00 - Subjective Subjective: Covering for PMD Dr. Escamilla Patient seen bedside. Elderly male chronically ill lying in bed , appears lethargic , on BIPAP 14/6/50 % saturating 98 % aFib on monitor rate controlled 83 , BP 117/58 afebrile last 12 hours ABG 60/178/35/7.43 Patient opens his eyes when calls his name , does not follow up any commands bedside No acute issues overnight WBC 7 K Hgb 8.3 plt 263 K BUN/Cr 88/ 2.1 Na 158 INR 1.4 right chest tube in place with 150 ml output last 24 hours Objective - Vital Signs/Intake and Output Vital Signs (last 24 hours): Temp Pulse Resp BP Pulse Ox 98.1 F 83 25 H 117/58 L 100 10/06/17 04:00 10/06/17 07:58 10/06/17 06:00 10/06/17 06:00 10/06/17 06:00 Intake and Output: 10/06/17 10/06/17 06:59 18:59 Intake Total 1000 Output Total 800 Balance 200 - Medications Medications: Current Medications Acetaminophen (Tylenol 650mg/20.3ml Solution Ud) 650 mg PO Q6 PRN PRN Reason: fever Last Admin: 10/02/17 20:45 Dose: 650 mg Albuterol/Ipratropium (Duoneb 3 Mg/0.5 Mg (3 Ml) Ud) 3 ml INH RQ4 [facility] Last Admin: 10/06/17 07:34 Dose: 3 ml Amiodarone HCl (Cordarone) 200 mg PO BID [facility] Last Admin: 10/05/17 16:01 Dose: 200 mg Calcium Carbonate (Oscal) 500 mg PO BIDWM [facility] Last Admin: 10/05/17 16:00 Dose: 500 mg Ergocalciferol (Drisdol 50,000 Intl Units Cap) 1 cap PO Q7D [facility] Last Admin: 10/02/17 23:16 Dose: 1 cap Piperacillin Sod/Tazobactam (Sod 2.25 gm/ Sodium Chloride) 100 mls @ 100 mls/ hr IVPB Q6 [facility]I PRN Reason: Protocol Last Admin: 10/06/17 05:13 Dose: 100 mls/hr Lamotrigine (Lamictal) 25 mg PO BID [facility] Last Admin: 10/05/17 16:00 Dose: 25 mg Metoprolol Tartrate (Lopressor) 2.5 mg IVP Q6 [facility] Last Admin: 10/06/17 05:14 Dose: 2.5 mg - Labs Labs: 10/06/17 06:44 10/06/17 06:44 PT 16.4 Seconds (9.8-13.1) H 10/06/17 06:44 INR 1.4 (0.9-1.2) H 10/06/17 06:44 APTT 37.4 Seconds (25.6-37.1) H 10/03/17 04:20 - Constitutional Appears: Toxic, Chronically Ill, Other (lethargic ,on BIpap not following any commands) - Head Exam Head Exam: ATRAUMATIC, NORMOCEPHALIC - Eye Exam Eye Exam: PERRL - ENT Exam ENT Exam: Mucous Membranes Dry - Neck Exam Neck Exam: Normal Inspection - Respiratory Exam Respiratory Exam: Clear to Ausculation Bilateral. absent: Rhonchi, Wheezes, Respiratory Distress - Cardiovascular Exam Cardiovascular Exam: Irregular Rhythm, +S1, +S2. absent: JVD - GI/Abdominal Exam GI & Abdominal Exam: Soft, Normal Bowel Sounds. 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 As per , she feels patient had clonic movements several days ago. Patient was found to be Hypotermic with SOB associated with cough unable to bring out phlegms, also with CXr showing bilateral pleural effusions and Infiltrates . INR 5.6, PTT 68.0, PT 65.9 His hospital course has been complicated by hypoxia requiring intubation, right pig tail cathether placement and left thoracentesis for pleural effusions. He has been followed by neuro , pulmonary , ID, nephro and cardiology . He has been on broad spectrum antibiotics for Aspiration Pneumonia and has been diuresing well and developed CANDELARIA and hypernatremia. At present extubated on BIPAP , lethargic 1. Acute respiratory failure with hypoxia Acute etiology multi factorial -- pleural effusion , CHF, pneumonia was intubated and now extubated on BIPAp 14/6/50 % ABG today showed PCO2 60 /PO2 176 Ph 7.43 HCo3 35 s/p left thoracenthesis with removal 750 ml fluid and with right pig tail in place Continue duonebs, IV antibiotics pulmonary on consult 2. Aspiration pneumonia Acute ID and pulmonary on consult Continue Zosyn 3.Altered mental status unclear etiology possibly Metabolic encephalopathy due to hypoxemia, pneumonia or related to uncontrolled seizures CT head showed no acute pathology Neurology consulted on lamictal for seizure control Continue Bipap and IV antibiotics 4. Pleural effusion, bilateral s/p left thoracenthesis by IR with removal 750 ml fluid and right pig tail placement repeat CXR today showed much improvement in pleural effusions pulmonary and CTS on consult 5. Diastolic CHF, acute on chronic Acute cardiology on board Diuretics on hold due to worsening renal function and hypernatremia low salt diet 6. A-fib Chronic , better controlled cardiology on consult Dr. Castro on amiodarone for rate control anticoagulation on hold on metoprolol IV 7.CANDELARIA (acute kidney injury)on CKD satge III worsening renal function due to diuretics Cr improving , today 2.1 Nephrology on consult Hold diuretics for now 8. Hypernatremia Acute due to dehydration low salt diet hold diuretics Na 158 today. 9. HTN (hypertension) Chronic on Metoprolol 10.S/P bronchoscopy and BAL Acute 11. Hx of seizure disorder Chronic neurology consulted on lamictal 12. Anemia of chronic disease Hgb 8.3 Monitor for now 13.Coumadin toxicity INR was 5.6 on admission Coumadin on hold Today INR 1.4 14. Frailty/ poor ,guarded prognosis patient is full code is surrogate decision maker 15. Vitamin D deficiency on ergocalciferol
--- NOTE | 2017-10-06 14:54 | CP.PCM.PN ---
Subjective - Date & Time of Evaluation Date of Evaluation: 10/06/17 Time of Evaluation: 06:00 - Subjective Subjective: no fever weak and bedridden' at the bedside On BiPaP - severe resp failure chest tube in place Objective - Vital Signs/Intake and Output Vital Signs (last 24 hours): Temp Pulse Resp BP Pulse Ox 98.2 F 80 25 H 128/59 L 100 10/06/17 12:00 10/06/17 14:00 10/06/17 14:00 10/06/17 14:00 10/06/17 14:00 Intake and Output: 10/06/17 10/06/17 06:59 18:59 Intake Total 1000 750 Output Total 800 Balance 200 750 - Medications Medications: Current Medications Acetaminophen (Tylenol 650mg/20.3ml Solution Ud) 650 mg PO Q6 PRN PRN Reason: fever Last Admin: 10/02/17 20:45 Dose: 650 mg Albuterol/Ipratropium (Duoneb 3 Mg/0.5 Mg (3 Ml) Ud) 3 ml INH RQ4 [facility] Last Admin: 10/06/17 11:09 Dose: 3 ml Amiodarone HCl (Cordarone) 200 mg PO BID [facility] Last Admin: 10/06/17 09:09 Dose: 200 mg Calcium Carbonate (Oscal) 500 mg PO BIDWM [facility] Last Admin: 10/06/17 09:07 Dose: 500 mg Ergocalciferol (Drisdol 50,000 Intl Units Cap) 1 cap PO Q7D [facility] Last Admin: 10/02/17 23:16 Dose: 1 cap Piperacillin Sod/Tazobactam (Sod 2.25 gm/ Sodium Chloride) 100 mls @ 100 mls/ hr IVPB Q6 [facility]UKI PRN Reason: Protocol Last Admin: 10/06/17 10:33 Dose: 100 mls/hr Lamotrigine (Lamictal) 25 mg PO BID [facility] Last Admin: 10/06/17 09:07 Dose: 25 mg Metoprolol Tartrate (Lopressor) 2.5 mg IVP Q6 [facility] Last Admin: 10/06/17 10:32 Dose: 2.5 mg - Labs Labs: 10/06/17 06:44 10/06/17 06:44 PT 16.4 Seconds (9.8-13.1) H 10/06/17 06:44 INR 1.4 (0.9-1.2) H 10/06/17 06:44 APTT 37.4 Seconds (25.6-37.1) H 10/03/17 04:20 - Constitutional Appears: Confused, Chronically Ill - Head Exam Head Exam: NORMOCEPHALIC - Eye Exam Eye Exam: PERRL. absent: Scleral icterus - ENT Exam ENT Exam: Mucous Membranes Dry, Normal External Ear Exam - Neck Exam Neck Exam: absent: Lymphadenopathy - Respiratory Exam Respiratory Exam: Decreased Breath Sounds, Rhonchi - Cardiovascular Exam Cardiovascular Exam: REGULAR RHYTHM, +S1, +S2 - GI/Abdominal Exam GI & Abdominal Exam: Distended, Soft. absent: Tenderness - Rectal Exam Rectal Exam: Deferred - Exam Exam: NORMAL INSPECTION - Extremities Exam Extremities Exam: absent: Pedal Edema - Back Exam Back Exam: absent: CVA tenderness (L), CVA tenderness (R) - Neurological Exam Neurological Exam: Altered - Psychiatric Exam Psychiatric exam: Depressed - Skin Skin Exam: Dry Assessment and Plan (1) CANDELARIA (acute kidney injury) Status: Acute (2) Acute respiratory failure Status: Acute (3) Altered mental status Status: Acute (4) Diastolic CHF, acute on chronic Status: Acute (5) Pleural effusion, bilateral Status: Acute (6) Pneumonia Status: Acute - Assessment and Plan (Free Text) Assessment: cont rx as per Dr Cole - neurology
--- NOTE | 2017-10-06 16:30 | CP.PCM.PN ---
Subjective - Date & Time of Evaluation Date of Evaluation: 10/06/17 Time of Evaluation: 16:29 - Subjective Subjective: Follow up Nephrology Consultation Note Assessment: critical Acute Kidney Injury (N17.9) likely due to pre-renal state/aggressive diuresis, Hypernatremia, hemodynamic (relative low BP and tachycardia ) ? sepsis Chronic Kidney Disease (N18.3) Stage 3 Anemia, vit D def Acute respi failure, diastolic CHF, b/l pleural effusion, A fib Plan No acute need for renal replacement therapy at this time. Hypertension control with meds as ordered. Patient not on ACEI/ARB due to CANDELARIA Monitor Input/Output, daily weights and renal function with basic metabolic panel pt now on water flushes increased to 350 mL q4hr via NG tube. may need IV lasix in next 1-2 days if in edematous state Dose meds/antibiotics for reduced GFR. Avoid fleets enema/magnesium based laxatives. Avoid nephrotoxins/NSAIDs/ iodinated contrast (unless needed emergently) Glycemic control Further work up for as per primary team Thanks for allowing me to participate in care of your patient. Will follow patient with you. Please call if any Qs. d/w and ICU team Dr Ghanshyam Clarke Office: [phone] Subjective: Noted events overnight. Patients extubated, but mostly non communicative Physical Examination: General Appearance: ill appearing, in no acute respiratory distress. on BiPAP Vitals reviewed and noted as below Head; Atraumatic, normocephalic ENT: no ulcers no thrush. orally intubated EYES: Pupils are equal, round and reactive to light accommodation. Sclera is anicteric. Neck; supple no lymphadenopathy, no thyromegaly or bruit Lungs: Normal respiratory rate/effort. Breath sounds bilateral equal and reduced at bases Heart: normal rate. s1s2 normal. No rub or gallop. Extremities: pedal edema +. Neurological: Patient is extubated, but lethargic and non communicative. eyes open Skin: Warm and dry. Normal turgor. No rash. Palpitation: Normal elasticity for age Abdomen: Abdomen is soft. Bowel sounds +. There is no abdominal tenderness, no guarding/rigidity or organomegaly : kidney or bladder not palpable. has ko psych; unable Labs/imaging reviewed. Past medical history, past surgical history, family history, social history, allergy reviewed family hx; no hx of CKD. non contributory Objective - Vital Signs/Intake and Output Vital Signs (last 24 hours): Temp Pulse Resp BP Pulse Ox 98.1 F 94 H 25 H 121/65 100 10/06/17 16:26 10/06/17 16:04 10/06/17 14:00 10/06/17 16:04 10/06/17 14:00 Intake and Output: 10/06/17 10/06/17 06:59 18:59 Intake Total 1000 1100 Output Total 800 Balance 200 1100 - Medications Medications: Current Medications Acetaminophen (Tylenol 650mg/20.3ml Solution Ud) 650 mg PO Q6 PRN PRN Reason: fever Last Admin: 10/02/17 20:45 Dose: 650 mg Albuterol/Ipratropium (Duoneb 3 Mg/0.5 Mg (3 Ml) Ud) 3 ml INH RQ4 [facility] Last Admin: 10/06/17 15:59 Dose: 3 ml Amiodarone HCl (Cordarone) 200 mg PO BID [facility] Last Admin: 10/06/17 16:03 Dose: 200 mg Calcium Carbonate (Oscal) 500 mg PO BIDWM [facility] Last Admin: 10/06/17 16:03 Dose: 500 mg Ergocalciferol (Drisdol 50,000 Intl Units Cap) 1 cap PO Q7D [facility] Last Admin: 10/02/17 23:16 Dose: 1 cap Piperacillin Sod/Tazobactam (Sod 2.25 gm/ Sodium Chloride) 100 mls @ 100 mls/ hr IVPB Q6 [facility] PRN Reason: Protocol Last Admin: 10/06/17 16:05 Dose: 100 mls/hr Lamotrigine (Lamictal) 25 mg PO BID [facility] Last Admin: 10/06/17 16:03 Dose: 25 mg Metoprolol Tartrate (Lopressor) 2.5 mg IVP Q6 [facility] Last Admin: 10/06/17 16:04 Dose: 2.5 mg - Labs Labs: 10/06/17 06:44 10/06/17 06:44 PT 16.4 Seconds (9.8-13.1) H 10/06/17 06:44 INR 1.4 (0.9-1.2) H 10/06/17 06:44 APTT 37.4 Seconds (25.6-37.1) H 10/03/17 04:20
--- NOTE | 2017-10-06 19:13 | EEG ---
DATE: CONDITION OF THE RECORDING: The record was obtained for a history of rule out encephalopathy and an old history of seizures. The record was obtained while patient was asleep. The record was symmetrically equal on both sides and the velocity was not computable because with the patient who was always asleep, and the background was formed mainly by delta waves. There were no abnormal discharges. No spikes. No polyspikes. No sharp waves. No focal slowing. No paroxysmal discharge. The record did not show any periods of drowsiness and there were some electrode artifact, muscle movement artifacts, and sweat artifacts. The record did not show any change with photic stimulation. Hyperventilation was omitted. In sum, this is a normal asleep EEG. Clinical correlation is recommended. Arlene Cole MD
--- NOTE | 2017-10-06 23:40 | CP.PCM.PN ---
Subjective - Date & Time of Evaluation Date of Evaluation: 10/06/17 Time of Evaluation: 21:00 - Subjective Subjective: Doing slightly better, improvement of Kidney Function, lower BUN and Creatinine. PCO2 is 60 % No Seizures He is on CPAP being responsive to verbal stimulation by opening his eyes. VS are most of the time normal. Controlled A Fib Negative CT Brain for CVA Unlikely Myasthenia Gravis at this age To R/O CIDP, it is very difficult to perform an LP now, there is no evidence of a history of Guillain Tylerton Syndrome IV Ig G might be administered if there is any doubt. He was extubated successfully and this does not support any local muscular disease as Myathenia or Guillain Tylerton Syndrome. MRI Brain can be done after medical improvement as it is very hard to sustain an MRI Brain Study with all medical critical problems, it might cost him his life. Objective - Vital Signs/Intake and Output Vital Signs (last 24 hours): Temp Pulse Resp BP Pulse Ox 97.7 F 83 25 H 121/55 L 100 10/06/17 20:00 10/06/17 22:05 10/06/17 22:00 10/06/17 22:05 10/06/17 22:00 Intake and Output: 10/06/17 10/07/17 18:59 06:59 Intake Total 1700 200 Output Total 750 Balance 950 200 - Medications Medications: Current Medications Acetaminophen (Tylenol 650mg/20.3ml Solution Ud) 650 mg PO Q6 PRN PRN Reason: fever Last Admin: 10/02/17 20:45 Dose: 650 mg Albuterol/Ipratropium (Duoneb 3 Mg/0.5 Mg (3 Ml) Ud) 3 ml INH RQ4 [facility] Last Admin: 10/06/17 19:49 Dose: 3 ml Amiodarone HCl (Cordarone) 200 mg PO BID [facility] Last Admin: 10/06/17 16:03 Dose: 200 mg Calcium Carbonate (Oscal) 500 mg PO BIDWM [facility] Last Admin: 10/06/17 16:03 Dose: 500 mg Ergocalciferol (Drisdol 50,000 Intl Units Cap) 1 cap PO Q7D [facility] Last Admin: 10/02/17 23:16 Dose: 1 cap Piperacillin Sod/Tazobactam (Sod 2.25 gm/ Sodium Chloride) 100 mls @ 100 mls/ hr IVPB Q6 [facility] PRN Reason: Protocol Last Admin: 10/06/17 22:06 Dose: 100 mls/hr Lamotrigine (Lamictal) 25 mg PO BID [facility] Last Admin: 10/06/17 16:03 Dose: 25 mg Metoprolol Tartrate (Lopressor) 2.5 mg IVP Q6 [facility] Last Admin: 10/06/17 22:05 Dose: 2.5 mg - Labs Labs: 10/06/17 06:44 10/06/17 06:44 PT 16.4 Seconds (9.8-13.1) H 10/06/17 06:44 INR 1.4 (0.9-1.2) H 10/06/17 06:44 APTT 37.4 Seconds (25.6-37.1) H 10/03/17 04:20 Assessment and Plan (1) CANDELARIA (acute kidney injury) Status: Acute (2) Acute respiratory failure Status: Acute (3) Altered mental status Status: Acute (4) Pleural effusion, bilateral Status: Acute (5) Pneumonia Status: Acute (6) Seizure disorder Status: Suspected (7) Encephalopathy Status: Acute
[2017-10-07] MEDS: Albuterol-Ipratrop 3 mg / 0.5 (3 ml) UD INH SCH ×7 (00:13→23:15)
[2017-10-07] MEDS: Metoprolol 1 mg/ml Inj IVP SCH ×4 (04:25→21:49)
[2017-10-07 05:08] LABS: ABG ALLEN TEST YES; ARTERIAL BLOOD GAS HCO3 35.7 mmol/L (21-28); ARTERIAL BLOOD GAS O2 CAPACITY 12.4 mL/dL (16-24); ARTERIAL BLOOD GAS O2 CONTENT 12.2 ML/dL (15-23); ARTERIAL BLOOD GAS O2 SAT 98.2 % (95-98); ARTERIAL BLOOD GAS PCO2 57 mm/Hg (35-45); ARTERIAL BLOOD GAS PH 7.45 (7.35-7.45); ARTERIAL BLOOD GAS PO2 76 mm/Hg (80-100); ARTERIAL BLOOD GAS TCO2 41.3 mmol/L (22-28)
[2017-10-07 05:34] LABS: HEMOGLOBIN 8.3 g/dL (12.0-18.0); MEAN CELL VOLUME 92.5 fl (80.0-94.0); MEAN CORPUSCULAR HEMOGLOBIN 28.6 pg (27.0-31.0); MEAN CORPUSCULAR HGB CONC 30.9 g/dL (33.0-37.0); RBC 2.89 Mil/uL (4.40-5.90); RED CELL DISTRIBUTION WIDTH 18.3 % (11.5-14.5); WHITE BLOOD COUNT 6.1 K/uL (4.8-10.8)
[2017-10-07 05:59] LABS: INR 1.4 (0.9-1.2)
[2017-10-07 06:04] LABS: CALCIUM 8.1 mg/dL (8.4-10.2)
--- NOTE | 2017-10-07 09:20 | CP.PCM.PN ---
Subjective - Date & Time of Evaluation Date of Evaluation: 10/07/17 Time of Evaluation: 09:18 - Subjective Subjective: Impression is lethargic. The at the bedside. Patient receiving oxygen by mask. NG tube feeding noted as well Lab revieweed Vital sign noted blood pressure much better normal temperature. Objective - Vital Signs/Intake and Output Vital Signs (last 24 hours): Temp Pulse Resp BP Pulse Ox 98.7 F 90 26 H 108/57 L 100 10/07/17 08:00 10/07/17 08:29 10/07/17 08:00 10/07/17 08:29 10/07/17 08:00 Intake and Output: 10/07/17 10/07/17 06:59 18:59 Intake Total 1200 Output Total 600 Balance 600 - Medications Medications: Current Medications Acetaminophen (Tylenol 650mg/20.3ml Solution Ud) 650 mg PO Q6 PRN PRN Reason: fever Last Admin: 10/02/17 20:45 Dose: 650 mg Albuterol/Ipratropium (Duoneb 3 Mg/0.5 Mg (3 Ml) Ud) 3 ml INH RQ4 [facility] Last Admin: 10/07/17 07:09 Dose: 3 ml Amiodarone HCl (Cordarone) 200 mg PO BID [facility] Last Admin: 10/07/17 08:29 Dose: 200 mg Calcium Carbonate (Oscal) 500 mg PO BIDWM [facility] Last Admin: 10/07/17 08:29 Dose: 500 mg Ergocalciferol (Drisdol 50,000 Intl Units Cap) 1 cap PO Q7D [facility] Last Admin: 10/02/17 23:16 Dose: 1 cap Piperacillin Sod/Tazobactam (Sod 2.25 gm/ Sodium Chloride) 100 mls @ 100 mls/ hr IVPB Q6 [facility] PRN Reason: Protocol Last Admin: 10/07/17 04:24 Dose: 100 mls/hr Lamotrigine (Lamictal) 25 mg PO BID [facility] Last Admin: 10/07/17 08:29 Dose: 25 mg Metoprolol Tartrate (Lopressor) 2.5 mg IVP Q6 [facility] Last Admin: 10/07/17 04:25 Dose: 2.5 mg - Labs Labs: 10/07/17 05:10 10/07/17 05:10 PT 16.0 Seconds (9.8-13.1) H 10/07/17 05:10 INR 1.4 (0.9-1.2) H 10/07/17 05:10 APTT 37.4 Seconds (25.6-37.1) H 10/03/17 04:20 - Constitutional Appears: No Acute Distress - Eye Exam Eye Exam: Conjunctival injection - ENT Exam ENT Exam: Mucous Membranes Dry - Respiratory Exam Respiratory Exam: Rhonchi. absent: Chest Wall Tenderness - Cardiovascular Exam Cardiovascular Exam: absent: JVD, Rubs - GI/Abdominal Exam GI & Abdominal Exam: Soft, Normal Bowel Sounds - Extremities Exam Extremities Exam: absent: Calf Tenderness - Back Exam Back Exam: absent: CVA tenderness (L), CVA tenderness (R) - Neurological Exam Neurological Exam: Altered Assessment and Plan (1) CANDELARIA (acute kidney injury) Assessment & Plan: Acute kidney injury serum creatinine seems to be improving and coming down slightly. Hyponatremia getting serum sodium up to 159. Hyperchloremia Above related to dehydration. Need to enforce to give 350 mL H2 O via NG tube every 6 hours, We will be speaking to the RN at the bedside. Continue monitoring kidney functions repeat BMP. Anemia as per primary team management. We will restart Lasix perhaps tomorrow when we get sodium correction somewhat. Status: Acute (2) Altered mental status Status: Acute (3) Diastolic CHF, acute on chronic Status: Acute (4) Hypernatremia Status: Acute
[2017-10-07] MEDS ORDERED: Lactobacillus Acidophilus 500 MU Cap PO SCH (10:00)
--- NOTE | 2017-10-07 10:58 | RAD ---
HISTORY: Chest pigtail. COMPARISON: 10/06/2017 FINDINGS: LUNGS: Extensive left basilar opacity. Possibly artifactual due to oblique positioning. Follow-up advised. No right-sided opacity. PLEURA: No definite pleural effusion bilaterally. No pneumothorax. CARDIOVASCULAR: Right PICC catheter unchanged. Permanent pacemaker. Right basilar pleural pigtail catheter noted. No pneumothorax. OSSEOUS STRUCTURES: No significant abnormalities. VISUALIZED UPPER ABDOMEN: Normal. OTHER FINDINGS: None. IMPRESSION: Right pleural pigtail catheter without pneumothorax. Opacity at left base. Possibly artifactual due to oblique positioning. Follow-up advised.
[2017-10-07] MEDS ORDERED: Chlorhexidine Gluconate 1 APPL/PKT TP ONE (11:39)
--- NOTE | 2017-10-07 12:55 | CP.PCM.PN ---
Subjective - Date & Time of Evaluation Date of Evaluation: 10/07/17 Time of Evaluation: 08:00 - Subjective Subjective: discussed with dr Cole prognosis guarded iv rx in progress no new cultures afebrile Objective - Vital Signs/Intake and Output Vital Signs (last 24 hours): Temp Pulse Resp BP Pulse Ox 97.5 F L 84 25 H 124/69 100 10/07/17 12:00 10/07/17 12:00 10/07/17 12:00 10/07/17 12:00 10/07/17 12:00 Intake and Output: 10/07/17 10/07/17 06:59 18:59 Intake Total 1200 800 Output Total 600 Balance 600 800 - Medications Medications: Current Medications Acetaminophen (Tylenol 650mg/20.3ml Solution Ud) 650 mg PO Q6 PRN PRN Reason: fever Last Admin: 10/02/17 20:45 Dose: 650 mg Albuterol/Ipratropium (Duoneb 3 Mg/0.5 Mg (3 Ml) Ud) 3 ml INH RQ4 [facility] Last Admin: 10/07/17 11:05 Dose: 3 ml Amiodarone HCl (Cordarone) 200 mg PO BID [facility] Last Admin: 10/07/17 08:29 Dose: 200 mg Calcium Carbonate (Oscal) 500 mg PO BIDWM [facility] Last Admin: 10/07/17 08:29 Dose: 500 mg Ergocalciferol (Drisdol 50,000 Intl Units Cap) 1 cap PO Q7D [facility] Last Admin: 10/02/17 23:16 Dose: 1 cap Piperacillin Sod/Tazobactam (Sod 2.25 gm/ Sodium Chloride) 100 mls @ 100 mls/ hr IVPB Q6 [facility] PRN Reason: Protocol Last Admin: 10/07/17 09:25 Dose: 100 mls/hr Lactobacillus Acidophilus (Bacid Acidophilus) 1 cap PO BID [facility] Lamotrigine (Lamictal) 25 mg PO BID [facility] Last Admin: 10/07/17 08:29 Dose: 25 mg Metoprolol Tartrate (Lopressor) 2.5 mg IVP Q6 [facility] Last Admin: 10/07/17 09:24 Dose: 2.5 mg - Labs Labs: 10/07/17 05:10 10/07/17 05:10 PT 16.0 Seconds (9.8-13.1) H 10/07/17 05:10 INR 1.4 (0.9-1.2) H 10/07/17 05:10 APTT 37.4 Seconds (25.6-37.1) H 10/03/17 04:20 - Constitutional Appears: Non-toxic, Confused - Head Exam Head Exam: NORMOCEPHALIC - Eye Exam Eye Exam: absent: Scleral icterus - ENT Exam ENT Exam: Mucous Membranes Dry - Neck Exam Neck Exam: absent: Lymphadenopathy - Respiratory Exam Respiratory Exam: Decreased Breath Sounds - GI/Abdominal Exam GI & Abdominal Exam: Distended, Soft - Rectal Exam Rectal Exam: Deferred Assessment and Plan (1) CANDELARIA (acute kidney injury) Status: Acute (2) Acute respiratory failure Status: Acute (3) Altered mental status Status: Acute (4) Diastolic CHF, acute on chronic Status: Acute (5) Pleural effusion, bilateral Status: Acute (6) Pneumonia Status: Acute
--- NOTE | 2017-10-07 13:03 | CP.PCM.PN ---
Subjective - Date & Time of Evaluation Date of Evaluation: 10/07/17 Time of Evaluation: 12:58 - Subjective Subjective: His Kidney function has improved significantly, lower BUN and creatinine. He is on High Flow Oxygen and off CPAP. Respiratory function is improving. He is responsive to verbal and tactile stimuliNo Seizures. by opening his eyes and looking eye to eye. Normal Vital Signs. No Seizures. Objective - Vital Signs/Intake and Output Vital Signs (last 24 hours): Temp Pulse Resp BP Pulse Ox 97.5 F L 84 25 H 124/69 100 10/07/17 12:00 10/07/17 12:00 10/07/17 12:00 10/07/17 12:00 10/07/17 12:00 Intake and Output: 10/07/17 10/07/17 06:59 18:59 Intake Total 1200 800 Output Total 600 Balance 600 800 - Medications Medications: Current Medications Acetaminophen (Tylenol 650mg/20.3ml Solution Ud) 650 mg PO Q6 PRN PRN Reason: fever Last Admin: 10/02/17 20:45 Dose: 650 mg Albuterol/Ipratropium (Duoneb 3 Mg/0.5 Mg (3 Ml) Ud) 3 ml INH RQ4 [facility] Last Admin: 10/07/17 11:05 Dose: 3 ml Amiodarone HCl (Cordarone) 200 mg PO BID [facility] Last Admin: 10/07/17 08:29 Dose: 200 mg Calcium Carbonate (Oscal) 500 mg PO BIDWM [facility] Last Admin: 10/07/17 08:29 Dose: 500 mg Ergocalciferol (Drisdol 50,000 Intl Units Cap) 1 cap PO Q7D [facility] Last Admin: 10/02/17 23:16 Dose: 1 cap Piperacillin Sod/Tazobactam (Sod 2.25 gm/ Sodium Chloride) 100 mls @ 100 mls/ hr IVPB Q6 [facility] PRN Reason: Protocol Last Admin: 10/07/17 09:25 Dose: 100 mls/hr Lactobacillus Acidophilus (Bacid Acidophilus) 1 cap PO BID [facility] Lamotrigine (Lamictal) 25 mg PO BID [facility] Last Admin: 10/07/17 08:29 Dose: 25 mg Metoprolol Tartrate (Lopressor) 2.5 mg IVP Q6 [facility] Last Admin: 10/07/17 09:24 Dose: 2.5 mg - Labs Labs: 10/07/17 05:10 10/07/17 05:10 PT 16.0 Seconds (9.8-13.1) H 10/07/17 05:10 INR 1.4 (0.9-1.2) H 10/07/17 05:10 APTT 37.4 Seconds (25.6-37.1) H 10/03/17 04:20 Assessment and Plan (1) CANDELARIA (acute kidney injury) Status: Acute (2) Acute respiratory failure Status: Acute (3) Altered mental status Status: Acute (4) Pleural effusion, bilateral Status: Acute (5) Pneumonia Status: Acute (6) Seizure disorder Status: Suspected (7) Encephalopathy Status: Acute
--- NOTE | 2017-10-07 13:22 | RAD ---
PROCEDURE: CHEST RADIOGRAPH, 1 VIEW HISTORY: pneumonia COMPARISON: 10/05/2017 FINDINGS: LUNGS: Bilateral interstitial infiltrates. PLEURA: Bilateral pleural effusions. CARDIOVASCULAR: Cardiomegaly. OSSEOUS STRUCTURES: No significant abnormalities. VISUALIZED UPPER ABDOMEN: Normal. OTHER FINDINGS: None. IMPRESSION: Findings suggestive of CHF, worsened since prior exam.
--- NOTE | 2017-10-07 14:38 | CP.PCM.PN ---
Subjective - Date & Time of Evaluation Date of Evaluation: 10/07/17 Time of Evaluation: 12:30 - Subjective Subjective: F/U Respiratory Failure. Pt with eyes open, appear aware, on BIPAP. Objective - Vital Signs/Intake and Output Vital Signs (last 24 hours): Temp Pulse Resp BP Pulse Ox 97.5 F L 91 H 24 138/63 100 10/07/17 12:00 10/07/17 14:00 10/07/17 14:00 10/07/17 14:00 10/07/17 14:00 Intake and Output: 10/07/17 10/07/17 06:59 18:59 Intake Total 1200 800 Output Total 600 Balance 600 800 - Medications Medications: Current Medications Acetaminophen (Tylenol 650mg/20.3ml Solution Ud) 650 mg PO Q6 PRN PRN Reason: fever Last Admin: 10/02/17 20:45 Dose: 650 mg Albuterol/Ipratropium (Duoneb 3 Mg/0.5 Mg (3 Ml) Ud) 3 ml INH RQ4 [facility] Last Admin: 10/07/17 11:05 Dose: 3 ml Amiodarone HCl (Cordarone) 200 mg PO BID [facility] Last Admin: 10/07/17 08:29 Dose: 200 mg Calcium Carbonate (Oscal) 500 mg PO BIDWM [facility] Last Admin: 10/07/17 08:29 Dose: 500 mg Dimethicone (Proshield Plus Skin Protectant) 1 applic TOP Q8 [facility] Ergocalciferol (Drisdol 50,000 Intl Units Cap) 1 cap PO Q7D [facility] Last Admin: 10/02/17 23:16 Dose: 1 cap Piperacillin Sod/Tazobactam (Sod 2.25 gm/ Sodium Chloride) 100 mls @ 100 mls/ hr IVPB Q6 [facility] PRN Reason: Protocol Last Admin: 10/07/17 09:25 Dose: 100 mls/hr Lactobacillus Acidophilus (Bacid Acidophilus) 1 cap PO BID [facility] Lamotrigine (Lamictal) 25 mg PO BID [facility] Last Admin: 10/07/17 08:29 Dose: 25 mg Metoprolol Tartrate (Lopressor) 2.5 mg IVP Q6 [facility] Last Admin: 10/07/17 09:24 Dose: 2.5 mg - Labs Labs: 10/07/17 05:10 10/07/17 05:10 PT 16.0 Seconds (9.8-13.1) H 10/07/17 05:10 INR 1.4 (0.9-1.2) H 10/07/17 05:10 APTT 37.4 Seconds (25.6-37.1) H 10/03/17 04:20 - Constitutional Appears: No Acute Distress - Head Exam Head Exam: NORMAL INSPECTION - Eye Exam Eye Exam: PERRL - ENT Exam Additional comments: On BIPAP - Neck Exam Neck Exam: Normal Inspection - Respiratory Exam Respiratory Exam: Decreased Breath Sounds (at bases), Rhonchi (scattered) Additional comments: R chest pigtail. - Cardiovascular Exam Cardiovascular Exam: Irregular Rhythm - GI/Abdominal Exam GI & Abdominal Exam: Soft, Normal Bowel Sounds - Extremities Exam Extremities Exam: Pedal Edema (Dorsal R-L foot, minimal edema upper extremities. ) - Back Exam Additional comments: DTI across sacrum. - Neurological Exam Neurological Exam: Awake (Non communicative) - Skin Skin Exam: Warm Assessment and Plan (1) Acute respiratory failure with hypoxia Status: Acute (2) Aspiration pneumonia Status: Acute (3) Altered mental status Status: Acute (4) Pleural effusion, bilateral Status: Acute (5) Diastolic CHF, acute on chronic Status: Acute (6) A-fib Status: Chronic (7) CANDELARIA (acute kidney injury) Status: Acute (8) Hypernatremia Status: Acute (9) HTN (hypertension) Status: Chronic (10) S/P bronchoscopy Status: Acute (11) Hx of seizure disorder Status: Chronic - Assessment and Plan (Free Text) Plan: Discussed with Asic Verification Engineer , trial of high flow O2, monitor pCO2 , continue DuoNeb , Amiodarone , Lamictal and rest of treatment ,treatment of Sacral DTI discussed with Nurse Ms Peterson. ICU Time: 37 min.
[2017-10-07] MEDS: metroNIDAZOLE 500mg/100ml NS 100 ML IVPB SCH (16:34)
[2017-10-07] MEDS: Proshield Plus GEL TOP SCH (16:34)
[2017-10-07] MEDS ORDERED: LACTOBACILLUS PO SCH (17:00)
--- NOTE | 2017-10-07 22:11 | PN ---
DATE: 10/07/2017 CRITICAL CARE PROGRESS NOTE LOCATION: Patient in ICU bed 431. TIME SPENT: 35 minutes. SUBJECTIVE: The patient is seen and examined at the bedside. Discussed with primary physician as well as with family. Events since admission noted. Past medical, surgical and social history reviewed. 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 Patient is currently extubated, placed on BiPAP overnight. This morning, alert, awake, will open eyes and will respond to his , not interactive and nonverbal. Patient is currently on high-flow nasal oxygen, 30 L with 50%, saturating 100%. PHYSICAL EXAMINATION: VITAL SIGNS: Temperature 97.5, heart rate 91, blood pressure 138/63, mean arterial pressure 88, respiratory rate 29, saturating 100%. Intake 2900, output 1350, positive balance 1550. Chest tube drainage, right lateral chest, 50 mL. HEAD, EYES, EARS, NOSE AND THROAT: Pupils reactive. Mucous membrane dry. CHEST: Bilateral breath sounds, clear to auscultation anteriorly and laterally. HEART: Rhythm irregular. ABDOMEN: Bowel sounds are present. Soft. No distention. EXTREMITIES: 2+ ankle edema. NEUROLOGIC: Lethargic, able to open eyes and respond to calling by his , nonverbal and noninteractive. CURRENT MEDICATIONS: Include Tylenol 650 q. 6 hours p.r.n., DuoNeb 3 mL via nebulizer q. 4 hours, amiodarone 200 mg p.o. b.i.d., Os-Jon 500 mg p.o. twice daily, Proshield Plus skin protectant 1 application topically q. 8 hours scheduled, ergocalciferol 1 capsule p.o. q. week, Lamictal at 25 mg twice daily, Lopressor 2.5 mg IV q. 6 hours, metronidazole 500 mg q. 8 hours. LABORATORY DATA: WBC 6.1, hemoglobin 8.3, hematocrit 26.8, platelet count of 357. PT 16, INR 1.4. ABG, pH 7.45, pCO2 of 57, pO2 of 76, saturation 98.2, on BiPAP of 14/6. SMA-7, sodium 159, potassium 4.1, chloride 117, CO2 of 38, blood urea nitrogen 79, creatinine 1.8, random glucose 116, calcium 8.1. Urinalysis, cloudy, urine RBC 41, microscopic WBC 8, urine creatinine 71, microalbumin 6.9. Pleural fluid WBC 694, RBC 21,032, total cell count 100, neutrophils 123, lymphocytes 60, monocytes 17. Vancomycin trough level 14.8. Serology Clostridium difficile antigen positive. Microbiology, sputum culture normal linda. Body fluid culture, no growth. Urine culture, no growth. Nasal smear MRSA negative. Blood culture, no growth. Chest x-ray done this morning, no significant pleural effusion, right pleural pigtail catheter in place. No pneumothorax noted. IMPRESSION: 1. Neurologic: History of CVA without residual weakness, history of seizure disorder, admitted with reportedly myoclonic jerks, now remains seizure free, on Lamictal 25 mg twice daily. Appreciate Neurology followup. 2. Cardiac: History of atrial fibrillation, chronic, rate controlled, on amiodarone, anticoagulation on hold, on metoprolol IV q. 12 hours, diastolic heart failure. 3. Pulmonary: Hypoxic respiratory failure, extubated, on BiPAP, currently on high-flow nasal oxygen, saturating 100%. Aspiration pneumonia, currently on Zosyn. Can discontinue pigtail catheter. We will discuss with PMD. 4. Acute kidney injury on chronic kidney disease, stage III, creatinine improving. Nephrology consult appreciated. Diuretics on hold. Hypernatremia due to dehydration. Low salt diet. Diuretic is on hold. Still with hypernatremia. 5. Infectious disease: Stool Clostridium difficile positive, on metronidazole. 6. Endocrine: Blood sugar maintained less than 180. Continue probiotic. Clive Buckner MD
[2017-10-08] MEDS: metroNIDAZOLE 500mg/100ml NS 100 ML IVPB SCH ×3 (00:39→17:34)
[2017-10-08] MEDS: Proshield Plus GEL TOP SCH ×3 (01:30→17:35)
[2017-10-08] MEDS: Metoprolol 1 mg/ml Inj IVP SCH ×4 (04:22→21:39)
[2017-10-08] MEDS: Albuterol-Ipratrop 3 mg / 0.5 (3 ml) UD INH SCH ×5 (05:15→19:14)
[2017-10-08 05:32] LABS: HEMOGLOBIN 8.4 g/dL (12.0-18.0); MEAN CELL VOLUME 92.8 fl (80.0-94.0); MEAN CORPUSCULAR HEMOGLOBIN 28.9 pg (27.0-31.0); MEAN CORPUSCULAR HGB CONC 31.2 g/dL (33.0-37.0); RBC 2.9 Mil/uL (4.40-5.90); RED CELL DISTRIBUTION WIDTH 18.3 % (11.5-14.5); WHITE BLOOD COUNT 6.4 K/uL (4.8-10.8)
[2017-10-08 05:54] LABS: CALCIUM 8.3 mg/dL (8.4-10.2)
--- NOTE | 2017-10-08 09:38 | CP.PCM.PN ---
Subjective - Date & Time of Evaluation Date of Evaluation: 10/08/17 Time of Evaluation: 09:34 - Subjective Subjective: Patient sitting up in bed Somewhat confused Vital sign noted to be stable. And no NG tube in place. And no water has been given. Physical exam Chest few rhonchi With the chest tube Legs no edema Abdomen soft Impression and plan Sodium continued to rise up to 168 goes he was not given oral water through the NG tube because there was no NG tube inserted. I change IV fluid to D5 W1 100 mL/h Also hyperchloremia the same treatment with D5W Kidney functions remain stable Objective - Vital Signs/Intake and Output Vital Signs (last 24 hours): Temp Pulse Resp BP Pulse Ox 98.4 F 107 H 30 H 133/74 100 10/08/17 08:00 10/08/17 08:00 10/08/17 08:00 10/08/17 08:00 10/08/17 08:00 Intake and Output: 10/08/17 10/08/17 06:59 18:59 Intake Total 1400 Output Total 810 Balance 590 - Medications Medications: Current Medications Acetaminophen (Tylenol 650mg/20.3ml Solution Ud) 650 mg PO Q6 PRN PRN Reason: fever Last Admin: 10/02/17 20:45 Dose: 650 mg Albuterol/Ipratropium (Duoneb 3 Mg/0.5 Mg (3 Ml) Ud) 3 ml INH RQ4 [facility] Last Admin: 10/08/17 07:55 Dose: 3 ml Amiodarone HCl (Cordarone) 200 mg PO BID [facility] Last Admin: 10/07/17 16:31 Dose: 200 mg Calcium Carbonate (Oscal) 500 mg PO BIDWM [facility] Last Admin: 10/07/17 16:31 Dose: 500 mg Dimethicone (Proshield Plus Skin Protectant) 1 applic TOP Q8 [facility] Last Admin: 10/08/17 01:30 Dose: 1 applic Ergocalciferol (Drisdol 50,000 Intl Units Cap) 1 cap PO Q7D [facility] Last Admin: 10/02/17 23:16 Dose: 1 cap Metronidazole (Flagyl 500mg/100ml Ns) 100 mls @ 100 mls/hr IVPB Q8 [facility] PRN Reason: Protocol Last Admin: 10/08/17 00:39 Dose: 100 mls/hr Lactobacillus Acidophilus (Bacid Acidophilus) 1 cap PO BID [facility] Lamotrigine (Lamictal) 25 mg PO BID [facility] Last Admin: 10/07/17 16:31 Dose: 25 mg Metoprolol Tartrate (Lopressor) 2.5 mg IVP Q6 [facility] Last Admin: 10/08/17 04:22 Dose: 2.5 mg - Labs Labs: 10/08/17 04:20 10/08/17 04:20 PT 16.0 Seconds (9.8-13.1) H 10/07/17 05:10 INR 1.4 (0.9-1.2) H 10/07/17 05:10 APTT 37.4 Seconds (25.6-37.1) H 10/03/17 04:20 Assessment and Plan (1) CANDELARIA (acute kidney injury) Status: Acute (2) Altered mental status Status: Acute (3) Diastolic CHF, acute on chronic Status: Acute (4) Hypernatremia Status: Acute
[2017-10-08] MEDS: Lactobacillus Acidophilus 500 MU Cap PO SCH ×2 (09:52→17:33)
--- NOTE | 2017-10-08 10:53 | CP.PCM.PN ---
Subjective - Date & Time of Evaluation Date of Evaluation: 10/08/17 Time of Evaluation: 08:00 - Subjective Subjective: seen in ICU at bedside danielan on hold Objective - Vital Signs/Intake and Output Vital Signs (last 24 hours): Temp Pulse Resp BP Pulse Ox 98.4 F 99 H 30 H 130/84 100 10/08/17 08:00 10/08/17 09:53 10/08/17 08:00 10/08/17 09:53 10/08/17 08:00 Intake and Output: 10/08/17 10/08/17 06:59 18:59 Intake Total 1400 Output Total 810 Balance 590 - Medications Medications: Current Medications Acetaminophen (Tylenol 650mg/20.3ml Solution Ud) 650 mg PO Q6 PRN PRN Reason: fever Last Admin: 10/02/17 20:45 Dose: 650 mg Albuterol/Ipratropium (Duoneb 3 Mg/0.5 Mg (3 Ml) Ud) 3 ml INH RQ4 [facility] Last Admin: 10/08/17 07:55 Dose: 3 ml Amiodarone HCl (Cordarone) 200 mg PO BID [facility] Last Admin: 10/08/17 09:50 Dose: 200 mg Calcium Carbonate (Oscal) 500 mg PO BIDWM [facility] Last Admin: 10/08/17 09:51 Dose: 500 mg Dimethicone (Proshield Plus Skin Protectant) 1 applic TOP Q8 [facility] Last Admin: 10/08/17 09:51 Dose: 1 applic Ergocalciferol (Drisdol 50,000 Intl Units Cap) 1 cap PO Q7D [facility] Last Admin: 10/02/17 23:16 Dose: 1 cap Metronidazole (Flagyl 500mg/100ml Ns) 100 mls @ 100 mls/hr IVPB Q8 [facility] PRN Reason: Protocol Last Admin: 10/08/17 09:53 Dose: 100 mls/hr Lactobacillus Acidophilus (Bacid Acidophilus) 1 cap PO BID [facility] Last Admin: 10/08/17 09:52 Dose: 1 cap Lamotrigine (Lamictal) 25 mg PO BID [facility] Last Admin: 10/08/17 09:51 Dose: 25 mg Metoprolol Tartrate (Lopressor) 2.5 mg IVP Q6 [facility] Last Admin: 10/08/17 09:53 Dose: 2.5 mg - Labs Labs: 11/28/17 04:20 10/08/17 04:20 PT 16.0 Seconds (9.8-13.1) H 10/07/17 05:10 INR 1.4 (0.9-1.2) H 10/07/17 05:10 APTT 37.4 Seconds (25.6-37.1) H 10/03/17 04:20 - Constitutional Appears: Non-toxic, Confused, Cachectic, Chronically Ill - Head Exam Head Exam: NORMOCEPHALIC - Eye Exam Eye Exam: PERRL. absent: Scleral icterus - ENT Exam ENT Exam: Mucous Membranes Dry - Neck Exam Neck Exam: absent: Lymphadenopathy - Respiratory Exam Respiratory Exam: Decreased Breath Sounds, Rhonchi - Cardiovascular Exam Cardiovascular Exam: REGULAR RHYTHM - GI/Abdominal Exam GI & Abdominal Exam: Distended Assessment and Plan (1) CANDELARIA (acute kidney injury) Status: Acute (2) Acute respiratory failure Status: Acute (3) Altered mental status Status: Acute (4) Diastolic CHF, acute on chronic Status: Acute (5) Pleural effusion, bilateral Status: Acute (6) Pneumonia Status: Acute
--- NOTE | 2017-10-08 14:03 | US ---
PROCEDURE: Date of procedure: 10/04/2017 Procedure: 1. Ultrasound-guided left thoracentesis, CPT 64637 Medications: 6cc 1% Lidocaine HISTORY: Left pleural effusion, shortness of breath TECHNIQUE: Following informed consent ,the Patients' left chest was marked. Procedure time-out was called, and the patient was placed in the sitting position and limited ultrasound showed a large left effusion. The patient's left back was prepped and draped in the usual sterile fashion. After the skin was anesthetized with lidocaine, a drainage catheter was advanced under ultrasound guidance into the pleural space. Ultrasound-guided thoracentesis was performed. A total of 750 cubic centimeters of straw-colored fluid removed without complication. A Xeroform dressing was applied. IMPRESSION: Ultrasound guided left thoracentesis. There were no immediate complications.
--- NOTE | 2017-10-08 17:13 | CP.PCM.PN ---
Subjective - Date & Time of Evaluation Date of Evaluation: 10/08/17 Time of Evaluation: 10:15 - Subjective Subjective: F/U Respiratory Failure. Pt appear with eyes open, no A/D, on NC, at bedside. Objective - Vital Signs/Intake and Output Vital Signs (last 24 hours): Temp Pulse Resp BP Pulse Ox 98.0 F 103 H 30 H 131/66 100 10/08/17 16:00 10/08/17 16:00 10/08/17 15:40 10/08/17 16:00 10/08/17 16:00 Intake and Output: 10/08/17 10/08/17 06:59 18:59 Intake Total 1400 Output Total 810 Balance 590 - Medications Medications: Current Medications Acetaminophen (Tylenol 650mg/20.3ml Solution Ud) 650 mg PO Q6 PRN PRN Reason: fever Last Admin: 10/02/17 20:45 Dose: 650 mg Albuterol/Ipratropium (Duoneb 3 Mg/0.5 Mg (3 Ml) Ud) 3 ml INH RQ4 [facility] Last Admin: 10/08/17 15:36 Dose: 3 ml Amiodarone HCl (Cordarone) 200 mg PO BID [facility] Last Admin: 10/08/17 09:50 Dose: 200 mg Calcium Carbonate (Oscal) 500 mg PO BIDWM [facility] Last Admin: 10/08/17 09:51 Dose: 500 mg Dimethicone (Proshield Plus Skin Protectant) 1 applic TOP Q8 [facility] Last Admin: 10/08/17 09:51 Dose: 1 applic Ergocalciferol (Drisdol 50,000 Intl Units Cap) 1 cap PO Q7D [facility] Last Admin: 10/02/17 23:16 Dose: 1 cap Metronidazole (Flagyl 500mg/100ml Ns) 100 mls @ 100 mls/hr IVPB Q8 [facility] PRN Reason: Protocol Last Admin: 10/08/17 09:53 Dose: 100 mls/hr Lactobacillus Acidophilus (Bacid Acidophilus) 1 cap PO BID [facility] Last Admin: 10/08/17 09:52 Dose: 1 cap Lamotrigine (Lamictal) 25 mg PO BID [facility] Last Admin: 10/08/17 09:51 Dose: 25 mg Levothyroxine Sodium (Synthroid) 12.5 mcg PO DAILY@0630 [facility] Metoprolol Tartrate (Lopressor) 2.5 mg IVP Q6 [facility] Last Admin: 10/08/17 09:53 Dose: 2.5 mg - Labs Labs: 10/08/17 04:20 10/08/17 04:20 PT 16.0 Seconds (9.8-13.1) H 10/07/17 05:10 INR 1.4 (0.9-1.2) H 10/07/17 05:10 APTT 37.4 Seconds (25.6-37.1) H 10/03/17 04:20 - Constitutional Appears: No Acute Distress, Chronically Ill - Head Exam Head Exam: NORMAL INSPECTION - Eye Exam Eye Exam: PERRL - ENT Exam Additional comments: On BIPAP - Neck Exam Neck Exam: Normal Inspection - Respiratory Exam Respiratory Exam: Decreased Breath Sounds (at bases), Rhonchi (scattered) Additional comments: R chest pigtail - Cardiovascular Exam Cardiovascular Exam: Irregular Rhythm - GI/Abdominal Exam GI & Abdominal Exam: Soft, Normal Bowel Sounds - Extremities Exam Extremities Exam: Pedal Edema (Dorsal R-L foot, minimal edema upper extremities. ) - Back Exam Additional comments: DTI across sacrum. - Neurological Exam Neurological Exam: Awake (non communicative) - Skin Skin Exam: Warm Assessment and Plan (1) Acute respiratory failure with hypoxia Status: Acute (2) Aspiration pneumonia Status: Acute (3) Altered mental status Status: Acute (4) Pleural effusion, bilateral Status: Acute (5) Diastolic CHF, acute on chronic Status: Acute (6) A-fib Status: Chronic (7) CANDELARIA (acute kidney injury) Status: Acute (8) Hypernatremia Status: Acute (9) HTN (hypertension) Status: Chronic (10) S/P bronchoscopy Status: Acute (11) Hx of seizure disorder Status: Chronic - Assessment and Plan (Free Text) Plan: Continue on BIPAP, high flow O2, continue Flagyl, Lopressor, Amiodarone and rest of Tx. ICU Time: 35 min.
[2017-10-08 19:33] LABS: T4 8.52 ug/dl (5.5-11.0)
[2017-10-08 19:47] LABS: T3 0.782 nmol/L (1.49-2.60)
[2017-10-08 20:21] LABS: ACETYLCHOLINE REC BIND AB <0.30 nmol/L (<=0.30)
[2017-10-09] MEDS: Albuterol-Ipratrop 3 mg / 0.5 (3 ml) UD INH SCH (00:02)
[2017-10-09] MEDS: metroNIDAZOLE 500mg/100ml NS 100 ML IVPB SCH ×3 (00:19→17:33)
[2017-10-09] MEDS: Proshield Plus GEL TOP SCH ×3 (01:00→17:35)
--- NOTE | 2017-10-09 02:26 | CP.PCM.PN ---
Subjective - Date & Time of Evaluation Date of Evaluation: 10/08/17 Time of Evaluation: 22:00 - Subjective Subjective: Patient respiratory function is improving. He is on straight flow Oxygen. He is awake, responsive, confused. Respiratory failure is resolving. He was started on Thyroxine 12.5 mcg/day for abnormal TFT. His Zyvox is on hold. Objective - Vital Signs/Intake and Output Vital Signs (last 24 hours): Temp Pulse Resp BP Pulse Ox 98.4 F 108 H 28 H 148/80 99 10/09/17 00:00 10/09/17 00:00 10/09/17 00:04 10/09/17 00:00 10/09/17 00:00 Intake and Output: 10/08/17 10/09/17 18:59 06:59 Intake Total 619 Balance 619 - Medications Medications: Current Medications Acetaminophen (Tylenol 650mg/20.3ml Solution Ud) 650 mg PO Q6 PRN PRN Reason: fever Last Admin: 10/02/17 20:45 Dose: 650 mg Albuterol/Ipratropium (Duoneb 3 Mg/0.5 Mg (3 Ml) Ud) [address] [facility] Last Admin: 10/09/17 00:02 Dose: 3 ml Amiodarone HCl (Cordarone) [address] [facility] Last Admin: 10/08/17 17:33 Dose: 200 mg Calcium Carbonate (Oscal) [address] [facility] Last Admin: 10/08/17 17:35 Dose: 500 mg Dimethicone (Proshield Plus Skin Protectant) [address] [facility] Last Admin: 10/08/17 17:35 Dose: 1 applic Ergocalciferol (Drisdol 50,000 Intl Units Cap) [address] [facility] Last Admin: 10/02/17 23:16 Dose: 1 cap Metronidazole (Flagyl 500mg/100ml Ns) 100 mls @ 100 mls/hr IVPB Q8 [facility] PRN Reason: Protocol Last Admin: 10/09/17 00:19 Dose: 100 mls/hr Lactobacillus Acidophilus (Bacid Acidophilus) [address] [facility] Last Admin: 10/08/17 17:33 Dose: 1 cap Levothyroxine Sodium (Synthroid) 12.5 mcg PO DAILY@0630 [facility] Metoprolol Tartrate (Lopressor) 2.5 mg IVP Q6 [facility] Last Admin: 10/08/17 21:39 Dose: 2.5 mg - Labs Labs: 10/08/17 04:20 10/08/17 04:20 PT 16.0 Seconds (9.8-13.1) H 10/07/17 05:10 INR 1.4 (0.9-1.2) H 10/07/17 05:10 APTT 37.4 Seconds (25.6-37.1) H 10/03/17 04:20 Assessment and Plan (1) CANDELARIA (acute kidney injury) Status: Acute (2) Acute respiratory failure Status: Acute (3) Altered mental status Status: Acute (4) Pleural effusion, bilateral Status: Acute (5) Pneumonia Status: Acute (6) Seizure disorder Status: Suspected (7) Encephalopathy Status: Acute
[2017-10-09] MEDS: Metoprolol 1 mg/ml Inj IVP SCH ×4 (04:45→21:36)
[2017-10-09 05:09] LABS: HEMOGLOBIN 9.4 g/dL (12.0-18.0); MEAN CELL VOLUME 92.9 fl (80.0-94.0); MEAN CORPUSCULAR HGB CONC 31.3 g/dL (33.0-37.0); RBC 3.25 Mil/uL (4.40-5.90); RED CELL DISTRIBUTION WIDTH 18.3 % (11.5-14.5); WHITE BLOOD COUNT 7.8 K/uL (4.8-10.8)
[2017-10-09] MEDS ORDERED: Levalbuterol 1.25 MG/3 ML Inhal Soln UD INH STA (05:09)
[2017-10-09 05:56] LABS: ALB/GLOB RATIO 0.8 (1.0-2.1); CALCIUM 8.4 mg/dL (8.4-10.2)
[2017-10-09 06:01] LABS: ABG ALLEN TEST YES; ARTERIAL BLOOD GAS HCO3 34.5 mmol/L (21-28); ARTERIAL BLOOD GAS HEMOGLOBIN 9.6 g/dL (11.7-17.4); ARTERIAL BLOOD GAS O2 CAPACITY 13.1 mL/dL (16-24); ARTERIAL BLOOD GAS O2 CONTENT 12.5 ML/dL (15-23); ARTERIAL BLOOD GAS O2 SAT 95.6 % (95-98); ARTERIAL BLOOD GAS PCO2 58 mm/Hg (35-45); ARTERIAL BLOOD GAS PH 7.43 (7.35-7.45); ARTERIAL BLOOD GAS PO2 64 mm/Hg (80-100); ARTERIAL BLOOD GAS TCO2 40.3 mmol/L (22-28)
[2017-10-09] MEDS: Levothyroxine 25 MCG TAB PO SCH (06:19)
[2017-10-09] MEDS: Levalbuterol 1.25 MG/3 ML Inhal Soln UD INH SCH ×5 (07:47→23:26)
[2017-10-09] MEDS: Lactobacillus Acidophilus 500 MU Cap PO SCH ×2 (09:04→17:36)
--- NOTE | 2017-10-09 09:14 | RAD ---
HISTORY: ROUTINE COMPARISON: 10/07/2017 FINDINGS: LUNGS: Complete collapse of the left lung. This represents a new finding compared to the prior study. Involving PLEURA: Evolving right pleural effusion despite the presence of the pigtail catheter in the right pleural space. CARDIOVASCULAR: No radiographic findings to suggest acute or significant cardiovascular disease. PICC line in satisfactory position . Position/ configuration of pacemaker OSSEOUS STRUCTURES: No significant abnormalities. VISUALIZED UPPER ABDOMEN: Nasogastric tube resides in satisfactory and unchanged position compared to the prior study. OTHER FINDINGS: None. IMPRESSION: Acute collapse of the left lung. Progressive consolidative changes right lower lobe, right pleural effusion.
--- NOTE | 2017-10-09 12:31 | CP.PCM.PN ---
Subjective - Date & Time of Evaluation Date of Evaluation: 10/09/17 Time of Evaluation: 12:27 - Subjective Subjective: Patient is more awake all daughter is confused and still lethargic. at the bedside Lab reviewed Vital signs reviewed and stated Objective - Vital Signs/Intake and Output Vital Signs (last 24 hours): Temp Pulse Resp BP Pulse Ox 99.1 F 108 H 34 H 171/85 H 100 10/09/17 12:00 10/09/17 12:00 10/09/17 12:00 10/09/17 12:00 10/09/17 12:00 Intake and Output: 10/09/17 10/09/17 06:59 18:59 Intake Total 1729 Output Total 1200 Balance 529 - Medications Medications: Current Medications Acetaminophen (Tylenol 650mg/20.3ml Solution Ud) 650 mg PO Q6 PRN PRN Reason: fever Last Admin: 10/02/17 20:45 Dose: 650 mg Acetazolamide (Diamox 250 Mg Tab) 250 mg PO BID [facility] Amiodarone HCl (Cordarone) 200 mg PO BID [facility] Last Admin: 10/09/17 09:03 Dose: 200 mg Calcium Carbonate (Oscal) 500 mg PO BIDWM [facility] Last Admin: 10/09/17 09:01 Dose: 500 mg Dimethicone (Proshield Plus Skin Protectant) 1 applic TOP Q8 [facility] Last Admin: 10/09/17 09:03 Dose: 1 applic Ergocalciferol (Drisdol 50,000 Intl Units Cap) 1 cap PO Q7D [facility] Last Admin: 10/02/17 23:16 Dose: 1 cap Metronidazole (Flagyl 500mg/100ml Ns) 100 mls @ 100 mls/hr IVPB Q8 [facility] PRN Reason: Protocol Last Admin: 10/09/17 09:11 Dose: 100 mls/hr Lactobacillus Acidophilus (Bacid Acidophilus) 1 cap PO BID [facility] Last Admin: 10/09/17 09:04 Dose: 1 cap Levalbuterol HCl (Xopenex) 1.25 mg INH RQ4 [facility] Last Admin: 10/09/17 11:20 Dose: 1.25 mg Levothyroxine Sodium (Synthroid) 12.5 mcg PO DAILY@0630 [facility] Last Admin: 10/09/17 06:19 Dose: 12.5 mcg Metoprolol Tartrate (Lopressor) 2.5 mg IVP Q6 [facility] Last Admin: 10/09/17 09:02 Dose: 2.5 mg - Labs Labs: 10/09/17 04:10 10/09/17 04:10 PT 16.0 Seconds (9.8-13.1) H 10/07/17 05:10 INR 1.4 (0.9-1.2) H 10/07/17 05:10 APTT 37.4 Seconds (25.6-37.1) H 10/03/17 04:20 - Constitutional Appears: No Acute Distress - ENT Exam ENT Exam: Mucous Membranes Dry - Neck Exam Neck Exam: absent: Lymphadenopathy - Respiratory Exam Respiratory Exam: Rhonchi, NORMAL BREATHING PATTERN - Cardiovascular Exam Cardiovascular Exam: absent: JVD, Rubs - GI/Abdominal Exam GI & Abdominal Exam: Soft, Normal Bowel Sounds. absent: Guarding - Extremities Exam Extremities Exam: absent: Calf Tenderness - Back Exam Back Exam: absent: CVA tenderness (L), CVA tenderness (R) - Neurological Exam Neurological Exam: Altered - Psychiatric Exam Psychiatric exam: Flat Affect - Skin Skin Exam: absent: Cyanosis Assessment and Plan (1) CANDELARIA (acute kidney injury) Assessment & Plan: Acute kidney injury continued to improve. Hypernatremia very slight improvement serum sodium today 159. Continue D5W. Hyperchloremia continue on the same IV fluid D5W. CO2 around 36 consistent with metabolic alkalosis perhaps from the previous use of diuresis. We will give Diamox for the next couple days only. Chest tube noted with no significant drainage. The asked so many questions. Status: Acute (2) Altered mental status Status: Acute (3) Diastolic CHF, acute on chronic Status: Acute (4) Hypernatremia Status: Acute
--- NOTE | 2017-10-09 14:18 | CP.PCM.PN ---
Subjective - Date & Time of Evaluation Date of Evaluation: 10/09/17 Time of Evaluation: 11:00 - Subjective Subjective: IMPROVING SLOWLY' CHEST TUBE IN PLACE DIARRHEA RESOLVED OFF ANTIBIOTICS PROGNOSIS REMAINS GUARDED Objective - Vital Signs/Intake and Output Vital Signs (last 24 hours): Temp Pulse Resp BP Pulse Ox 99.1 F 108 H 34 H 171/85 H 100 10/09/17 12:00 10/09/17 12:00 10/09/17 12:00 10/09/17 12:00 10/09/17 12:00 Intake and Output: 10/09/17 10/09/17 06:59 18:59 Intake Total 1729 Output Total 1200 Balance 529 - Medications Medications: Current Medications Acetaminophen (Tylenol 650mg/20.3ml Solution Ud) 650 mg PO Q6 PRN PRN Reason: fever Last Admin: 10/02/17 20:45 Dose: 650 mg Acetazolamide (Diamox 250 Mg Tab) 250 mg PO BID [facility] Amiodarone HCl (Cordarone) 200 mg PO BID [facility] Last Admin: 10/09/17 09:03 Dose: 200 mg Calcium Carbonate (Oscal) 500 mg PO BIDWM [facility] Last Admin: 10/09/17 09:01 Dose: 500 mg Dimethicone (Proshield Plus Skin Protectant) 1 applic TOP Q8 [facility] Last Admin: 10/09/17 09:03 Dose: 1 applic Ergocalciferol (Drisdol 50,000 Intl Units Cap) 1 cap PO Q7D [facility] Last Admin: 10/02/17 23:16 Dose: 1 cap Metronidazole (Flagyl 500mg/100ml Ns) 100 mls @ 100 mls/hr IVPB Q8 [facility] PRN Reason: Protocol Last Admin: 10/09/17 09:11 Dose: 100 mls/hr Lactobacillus Acidophilus (Bacid Acidophilus) 1 cap PO BID [facility] Last Admin: 10/09/17 09:04 Dose: 1 cap Levalbuterol HCl (Xopenex) 1.25 mg INH RQ4 [facility] Last Admin: 10/09/17 11:20 Dose: 1.25 mg Levothyroxine Sodium (Synthroid) 12.5 mcg PO DAILY@0630 [facility] Last Admin: 10/09/17 06:19 Dose: 12.5 mcg Metoprolol Tartrate (Lopressor) 2.5 mg IVP Q6 [facility] Last Admin: 10/09/17 09:02 Dose: 2.5 mg - Labs Labs: 10/09/17 04:10 10/09/17 04:10 PT 16.0 Seconds (9.8-13.1) H 10/07/17 05:10 INR 1.4 (0.9-1.2) H 10/07/17 05:10 APTT 37.4 Seconds (25.6-37.1) H 10/03/17 04:20 - Constitutional Appears: Non-toxic, Cachectic, Chronically Ill - Head Exam Head Exam: NORMOCEPHALIC - Eye Exam Eye Exam: PERRL. absent: Scleral icterus - ENT Exam ENT Exam: Mucous Membranes Dry - Neck Exam Neck Exam: absent: Lymphadenopathy - Respiratory Exam Respiratory Exam: Decreased Breath Sounds - Cardiovascular Exam Cardiovascular Exam: REGULAR RHYTHM - GI/Abdominal Exam GI & Abdominal Exam: Distended - Rectal Exam Rectal Exam: Deferred - Exam Exam: NORMAL INSPECTION - Extremities Exam Extremities Exam: absent: Pedal Edema - Back Exam Back Exam: absent: CVA tenderness (L), CVA tenderness (R) - Neurological Exam Neurological Exam: Altered - Psychiatric Exam Psychiatric exam: Depressed - Skin Skin Exam: Dry Assessment and Plan (1) CANDELARIA (acute kidney injury) Status: Acute (2) Acute respiratory failure Status: Acute (3) Altered mental status Status: Acute (4) Diastolic CHF, acute on chronic Status: Acute (5) Pleural effusion, bilateral Status: Acute (6) Pneumonia Status: Acute
[2017-10-09] MEDS ORDERED: Lidocaine 1% Inj (20ml) ONE (14:29)
--- NOTE | 2017-10-09 15:14 | PCM.SURG1 ---
Surgeon's Initial Post Op Note - Surgeon's Notes Surgeon: Benjamín Graham MD Support Specialist: None Type of Anesthesia: Local Pre-Operative Diagnosis: SOB, large pleural effusion Operative Findings: Large left pleural effusion Post-Operative Diagnosis: same Operation Performed: US guided LEFT thoracentesis Specimen/Specimens Removed: 1100 cc straw colored fluid removedfrom left. small residual effusion. o2 sats decreased to low 80s before spontaneously returning to high 90s. RIGHT chest tube not removed due to transient drop in o2 sats, can be removed tomorrow Estimated Blood Loss: EBL {In ML}: 0 Post-Op Condition: Good Date of Surgery/Procedure: 10/09/17 Time of Surgery/Procedure: 14:50
--- NOTE | 2017-10-09 15:59 | CP.PCM.PN ---
Subjective - Date & Time of Evaluation Date of Evaluation: 10/09/17 Time of Evaluation: 10:30 - Subjective Subjective: F/U Acute respiratory failure. Pt appear lethargic, non verbal. Objective - Vital Signs/Intake and Output Vital Signs (last 24 hours): Temp Pulse Resp BP Pulse Ox 98.5 F 144 H 22 115/66 97 10/09/17 15:11 10/09/17 15:11 10/09/17 15:11 10/09/17 15:11 10/09/17 15:11 Intake and Output: 10/09/17 10/09/17 06:59 18:59 Intake Total 1729 Output Total 1200 Balance 529 - Medications Medications: Current Medications Acetaminophen (Tylenol 650mg/20.3ml Solution Ud) 650 mg PO Q6 PRN PRN Reason: fever Last Admin: 10/02/17 20:45 Dose: 650 mg Acetazolamide (Diamox 250 Mg Tab) 250 mg PO BID [facility] Amiodarone HCl (Cordarone) 200 mg PO BID [facility] Last Admin: 10/09/17 09:03 Dose: 200 mg Calcium Carbonate (Oscal) 500 mg PO BIDWM [facility] Last Admin: 10/09/17 09:01 Dose: 500 mg Dimethicone (Proshield Plus Skin Protectant) 1 applic TOP Q8 [facility] Last Admin: 10/09/17 09:03 Dose: 1 applic Ergocalciferol (Drisdol 50,000 Intl Units Cap) 1 cap PO Q7D [facility] Last Admin: 10/02/17 23:16 Dose: 1 cap Metronidazole (Flagyl 500mg/100ml Ns) 100 mls @ 100 mls/hr IVPB Q8 [facility] PRN Reason: Protocol Last Admin: 10/09/17 09:11 Dose: 100 mls/hr Lactobacillus Acidophilus (Bacid Acidophilus) 1 cap PO BID [facility] Last Admin: 10/09/17 09:04 Dose: 1 cap Levalbuterol HCl (Xopenex) 1.25 mg INH RQ4 [facility] Last Admin: 10/09/17 15:55 Dose: 1.25 mg Levothyroxine Sodium (Synthroid) 12.5 mcg PO DAILY@0630 [facility] Last Admin: 10/09/17 06:19 Dose: 12.5 mcg Metoprolol Tartrate (Lopressor) 2.5 mg IVP Q6 [facility] Last Admin: 10/09/17 09:02 Dose: 2.5 mg - Labs Labs: 10/09/17 04:10 10/09/17 04:10 PT 16.0 Seconds (9.8-13.1) H 10/07/17 05:10 INR 1.4 (0.9-1.2) H 10/07/17 05:10 APTT 37.4 Seconds (25.6-37.1) H 10/03/17 04:20 - Constitutional Appears: Chronically Ill - Head Exam Head Exam: NORMAL INSPECTION - Eye Exam Eye Exam: PERRL - ENT Exam ENT Exam: Normal Exam Additional comments: High Flow O2 - Neck Exam Neck Exam: Normal Inspection - Respiratory Exam Respiratory Exam: Decreased Breath Sounds (at bases), Rhonchi (scattered) - Cardiovascular Exam Cardiovascular Exam: Irregular Rhythm - GI/Abdominal Exam GI & Abdominal Exam: Soft, Normal Bowel Sounds - Extremities Exam Extremities Exam: Pedal Edema - Back Exam Additional comments: DTI Sacrum - Neurological Exam Additional comments: lethargic , generalized weakness - Skin Skin Exam: Warm Assessment and Plan (1) Acute respiratory failure with hypoxia Status: Acute (2) Aspiration pneumonia Status: Acute (3) Altered mental status Status: Acute (4) Pleural effusion, bilateral Status: Acute (5) Diastolic CHF, acute on chronic Status: Acute (6) A-fib Status: Chronic (7) CANDELARIA (acute kidney injury) Status: Acute (8) Hypernatremia Status: Acute (9) HTN (hypertension) Status: Chronic (10) S/P bronchoscopy Status: Acute (11) Hx of seizure disorder Status: Chronic - Assessment and Plan (Free Text) Plan: CXR shows opacification of the L hemithorax, and building R pleural effusion, IR for L Thoracentesis today,continue rest of treatment ICU Time: 38 min.
--- NOTE | 2017-10-09 16:03 | RAD ---
HISTORY: post left thoracentesis with removal of 1.1liters COMPARISON: Chest radiograph performed approximately 10 hours prior FINDINGS: LUNGS: Pulmonary vascular congestion. Right mid/ lower lung opacity. PLEURA: Near complete resolution of left pleural effusion with small residual pleural effusion. Small to moderate right pleural effusion. No pneumothorax apparent. CARDIOVASCULAR: Left subclavian access pacemaker redemonstrated. Atherosclerotic aortic calcifications. Cardiomediastinal silhouette stably prominent. OSSEOUS STRUCTURES: Unchanged. VISUALIZED UPPER ABDOMEN: Normal. OTHER FINDINGS: Right upper extremity PICC, unchanged. Enteric tube, unchanged. Right basilar pigtail chest tube, unchanged. IMPRESSION: Near complete resolution of left pleural effusion post thoracentesis. No appreciable pneumothorax. No other significant interval change.
--- NOTE | 2017-10-09 16:29 | CP.CCUPN ---
CCU Subjective - Physician Review Subjective (Free Text): Still appears somnolent to me, occasionally spontaneously raises left arm. On HFNC at 30 LPM and 50% oxygen. Discussed with PMD / pulm regarding todays CXR findings showing near complete opacification of left lung. Possible re- accumulating pleural fluid suspected instead of lobar atelectasis. No CVXR done yesterday to compare. Decision made to re-assess with US and thoracentesis if enough fluid is amenable for extraction. Patient transported safely to IR suite and underwent removal of approx 1100 ml of pleural fluid. Repeat CXR shows markedly improved aeration of both lung ward now. He did get Lasix 80mg IVP this early AM for resp distress and has diuresed almost 2000ml urine output. He has been on 350ml Tap water Q4h as well for Hypernatremia. R pigtail catheter not drainage and not removed today over concern of acute PTX if he goes under positive pressure ventilatory support on the vent for any reason. Other vitals and I/O's reviewed. T max to 100.1 F; Urine output approx 1550 ml overnight, off lasix drip. ROS: Unobtainable due to lethargy. No other pertinent negs or positives on 10+ system review. PMSFH: All other Nursing and physician documentation reviewed to date; no new pertinent info noted relevant to current medical problems. CXR: visible distal tip of ETT ok above apoorva, R pigtail catheter intact, no PTX, R lung looks clear. Left basilar opacification persists (my interp). IMPRESSION / MAJOR PROBLEMS NOW: 1. Acute Resp ( Hypoxemic) failure 2 bilat effusions, and compressive atelectasis, unclear if any superimposed pneumonitic process. 2. Encephalopathy: etiology unclear, ?? metabolic vs cryptogenic seizures vs ?? CVA?? 3. Chronic A Fib, presently with controlled VR 4. r/o Cardiomyopathy vs Diastolic Dysfx CHF- non-invasive TTE shows preserved EF. 5. Azotemia, CKD III ( Bun/Cr was 36/1.5 at the time of last hospital discharge) 6. Warfarin induced-coagulopathy PLAN: 1. Straight extubation from MV support was done on 10/04/17 after noting ETT was malpositioned. Since then he has been on BiPAP and finally HFNC. Try decreasing fiO2 now post re-thoracentesis of left lung. 2. Marked diuresis now may be negating effects of water administration in order to slowly improve hypernatremia. Await repeat lytes in Am for re- assessment. No worsening of mental status noted. 3. Stop Synthroid, he does not exhibit any s/sx of clinical hypothyroidism, and TFTs reflect non-thyroidal illness of the critically ill. 4. Flagyl started for C diff Ag+. 5. Will discuss with Pulm/PMD on any utility in further mgmt by Carolynn jeter for recurrent effusions. 6. Clinitron bed placed for new stage 4 decubitus wounds. CCU Objective - Vital Signs / Intake & Output Vital Signs (Last 4 hours): Vital Signs Temp Pulse Resp BP Pulse Ox 10/09/17 16:00 98.1 F 110 H 139/56 L 99 10/09/17 15:11 98.5 F 144 H 22 115/66 97 10/09/17 14:38 98.9 F 152 H 24 155/78 H 97 Intake and Output (Last 8hrs): Intake & Output 10/09/17 10/09/17 10/09/17 06:59 14:59 22:59 Intake Total 1214 Output Total 1200 Balance 14 Weight 172 lb 14.4 oz Intake: IV 14 Intake, Piggyback 100 Tube Feeding 400 Free Water Flush 700 Output: Drainage 0 Right Lateral Chest 0 Urine 1200 Urethral (Wang) 1200 Other: # Bowel Movements 1 - Physical Exam Physical Exam Limitations: Positive for: Altered Mental Status Head: Positive for: Atraumatic, Normocephalic Pupils: Positive for: PERRL, Sluggish Extroacular Muscles: Positive for: EOMI Conjunctiva: Positive for: Normal. Negative for: Icteric Ears: Positive for: Normal Mouth: Positive for: Moist Mucous Membranes Pharnyx: Negative for: ERYTHEMA Neck: Positive for: Normal Range of Motion. Negative for: JVD Respiratory/Chest: Positive for: Decreased Breath Sounds, Rhonchi (upper airway rhonchi), Tachypneic. Negative for: Accessory Muscle Use, Wheezes Cardiovascular: Positive for: Irregular Rhythm, Peripheal Pulses Present, Tachycardic. Negative for: Murmurs, Normal S1, S2, Rub Abdomen: Positive for: Normal Bowel Sounds. Negative for: Tenderness, Distention, Peritoneal Signs Upper Extremity: Positive for: Edema Lower Extremity: Positive for: Edema, NORMAL PULSES. Negative for: CALF TENDERNESS, Cyanosis Neurological: Positive for: Other (withdraws to deep pain) Skin: Positive for: Warm, Dry. Negative for: Rashes Psychiatric: Positive for: Lethargic - Medications Active Medications: Active Medications Generic Name Dose Route Start Last Admin Trade Name Freq PRN Reason Stop Dose Admin Acetaminophen 650 mg 09/29/17 13:49 10/02/17 20:45 Tylenol 650mg/20.3ml Solution Ud PO 650 mg Q6 PRN Administration fever Acetazolamide 250 mg 10/09/17 17:00 Diamox 250 Mg Tab PO BID YUKI Amiodarone HCl 200 mg 09/29/17 17:00 10/09/17 09:03 Cordarone PO 200 mg BID YUKI Administration Calcium Carbonate 500 mg 09/26/17 08:00 10/09/17 09:01 Oscal PO 500 mg BIDWM YUKI Administration Dimethicone 1 applic 10/07/17 17:00 10/09/17 09:03 Proshield Plus Skin Protectant TOP 1 applic Q8 YUKI Administration Ergocalciferol 1 cap 09/25/17 23:45 10/02/17 23:16 Drisdol 50,000 Intl Units Cap PO 1 cap Q7D YUKI Administration Metronidazole 100 mls @ 100 mls/hr 10/07/17 17:00 10/09/17 09:11 Flagyl 500mg/100ml Ns IVPB 100 mls/hr Q8 YUKI Administration Protocol Lactobacillus Acidophilus 1 cap 10/08/17 09:00 10/09/17 09:04 Bacid Acidophilus PO 1 cap BID YUKI Administration Levalbuterol HCl 1.25 mg 10/09/17 08:00 10/09/17 15:55 Xopenex INH 1.25 mg RQ4 YUKI Administration Levothyroxine Sodium 12.5 mcg 10/09/17 06:30 10/09/17 06:19 Synthroid PO 12.5 mcg DAILY@0630 YUKI Administration Metoprolol Tartrate 2.5 mg 09/27/17 10:00 10/09/17 09:02 Lopressor IVP 2.5 mg Q6 YUKI Administration - Patient Studies Lab Studies: Lab Studies 10/09/17 10/09/17 10/09/17 Range/Units 05:13 04:10 04:10 WBC 7.8 (4.8-10.8) K/uL RBC 3.25 L (4.40-5.90) Mil/uL Hgb 9.4 L (12.0-18.0) g/dL Hct 30.2 L (35.0-51.0) % MCV 92.9 (80.0-94.0) fl MCH 29.0 (27.0-31.0) pg MCHC 31.3 L (33.0-37.0) g/dL RDW 18.3 H (11.5-14.5) % Plt Count 534 H (130-400) K/uL pCO2 58 H (35-45) mm/Hg pO2 64 L (80-100) mm/Hg HCO3 34.5 H (21-28) mmol/L ABG pH 7.43 (7.35-7.45) ABG Total CO2 40.3 H (22-28) mmol/L ABG O2 Saturation 95.6 (95-98) % ABG O2 Content 12.5 L (15-23) ML/dL ABG Base Excess 12.4 H (-2.0-3.0) mmol/L ABG Hemoglobin 9.6 L (11.7-17.4) g/dL ABG Carboxyhemoglobin 1.9 H (0.5-1.5) % POC ABG HHb (Measured) 4.3 (0.0-5.0) % ABG Methemoglobin 1.3 (0.0-3.0) % ABG O2 Capacity 13.1 L (16-24) mL/dL Broderick Test Yes A-a O2 Difference 220.0 mm/Hg Hgb O2 Saturation 92.4 L (95.0-98.0) % Liter Flow 30 Vent Mode High flow lpm FiO2 50.0 % Sodium 159 H (132-148) mmol/l Potassium 4.5 (3.6-5.0) MMOL/L Chloride 117 H (98-107) mmol/L Carbon Dioxide 36 H (22-30) mmol/L Anion Gap 11 (10-20) BUN 63 H (9-20) mg/dl Creatinine 1.4 (0.8-1.5) mg/dl Est GFR ( Amer) 59 Est GFR (Non-Af Amer) 49 Random Glucose 141 H (75-110) mg/dL Calcium 8.4 (8.4-10.2) mg/dL Total Bilirubin 0.4 (0.2-1.3) mg/dl AST 36 (17-59) U/L ALT 28 (21-72) U/L Alkaline Phosphatase 103 (38-126) U/L Total Protein 7.0 (6.3-8.2) G/DL Albumin 3.0 L (3.5-5.0) g/dL Globulin 4.0 H (2.2-3.9) gm/dL Albumin/Globulin Ratio 0.8 L (1.0-2.1) Thyroxine (T4) (5.5-11.0) ug/dl Total T3 (1.49-2.60) nmol/L Acetylchol Rcpt Bind Ab (<=0.30) nmol/L 10/08/17 10/06/17 Range/Units 19:00 16:15 WBC (4.8-10.8) K/uL RBC (4.40-5.90) Mil/uL Hgb (12.0-18.0) g/dL Hct (35.0-51.0) % MCV (80.0-94.0) fl MCH (27.0-31.0) pg MCHC (33.0-37.0) g/dL RDW (11.5-14.5) % Plt Count (130-400) K/uL pCO2 (35-45) mm/Hg pO2 (80-100) mm/Hg HCO3 (21-28) mmol/L ABG pH (7.35-7.45) ABG Total CO2 (22-28) mmol/L ABG O2 Saturation (95-98) % ABG O2 Content (15-23) ML/dL ABG Base Excess (-2.0-3.0) mmol/L ABG Hemoglobin (11.7-17.4) g/dL ABG Carboxyhemoglobin (0.5-1.5) % POC ABG HHb (Measured) (0.0-5.0) % ABG Methemoglobin (0.0-3.0) % ABG O2 Capacity (16-24) mL/dL Broderick Test A-a O2 Difference mm/Hg Hgb O2 Saturation (95.0-98.0) % Liter Flow Vent Mode FiO2 % Sodium (132-148) mmol/l Potassium (3.6-5.0) MMOL/L Chloride (98-107) mmol/L Carbon Dioxide (22-30) mmol/L Anion Gap (10-20) BUN (9-20) mg/dl Creatinine (0.8-1.5) mg/dl Est GFR ( Amer) Est GFR (Non-Af Amer) Random Glucose (75-110) mg/dL Calcium (8.4-10.2) mg/dL Total Bilirubin (0.2-1.3) mg/dl AST (17-59) U/L ALT (21-72) U/L Alkaline Phosphatase (38-126) U/L Total Protein (6.3-8.2) G/DL Albumin (3.5-5.0) g/dL Globulin (2.2-3.9) gm/dL Albumin/Globulin Ratio (1.0-2.1) Thyroxine (T4) 8.52 (5.5-11.0) ug/dl Total T3 0.782 L (1.49-2.60) nmol/L Acetylchol Rcpt Bind Ab <0.30 (<=0.30) nmol/L Laboratory Results - last 24 hr 10/06/17 10/08/17 10/09/17 16:15 19:00 04:10 WBC 7.8 RBC 3.25 L Hgb 9.4 L Hct 30.2 L MCV 92.9 MCH 29.0 MCHC 31.3 L RDW 18.3 H Plt Count 534 H pCO2 pO2 HCO3 ABG pH ABG Total CO2 ABG O2 Saturation ABG O2 Content ABG Base Excess ABG Hemoglobin ABG Carboxyhemoglobin POC ABG HHb (Measured) ABG Methemoglobin ABG O2 Capacity Broderick Test A-a O2 Difference Hgb O2 Saturation Liter Flow Vent Mode FiO2 Sodium Potassium Chloride Carbon Dioxide Anion Gap BUN Creatinine Est GFR ( Amer) Est GFR (Non-Af Amer) Random Glucose Calcium Total Bilirubin AST ALT Alkaline Phosphatase Total Protein Albumin Globulin Albumin/Globulin Ratio Thyroxine (T4) 8.52 Total T3 0.782 L Acetylchol Rcpt Bind Ab <0.30 10/09/17 10/09/17 04:10 05:13 WBC RBC Hgb Hct MCV MCH MCHC RDW Plt Count pCO2 58 H pO2 64 L HCO3 34.5 H ABG pH 7.43 ABG Total CO2 40.3 H ABG O2 Saturation 95.6 ABG O2 Content 12.5 L ABG Base Excess 12.4 H ABG Hemoglobin 9.6 L ABG Carboxyhemoglobin 1.9 H POC ABG HHb (Measured) 4.3 ABG Methemoglobin 1.3 ABG O2 Capacity 13.1 L Broderick Test Yes A-a O2 Difference 220.0 Hgb O2 Saturation 92.4 L Liter Flow 30 Vent Mode High flow lpm FiO2 50.0 Sodium 159 H Potassium 4.5 Chloride 117 H Carbon Dioxide 36 H Anion Gap 11 BUN 63 H Creatinine 1.4 Est GFR ( Amer) 59 Est GFR (Non-Af Amer) 49 Random Glucose 141 H Calcium 8.4 Total Bilirubin 0.4 AST 36 ALT 28 Alkaline Phosphatase 103 Total Protein 7.0 Albumin 3.0 L Globulin 4.0 H Albumin/Globulin Ratio 0.8 L Thyroxine (T4) Total T3 Acetylchol Rcpt Bind Ab Fingerstick Blood Sugar Results: 83 Review of Systems - Review of Systems Systems not reviewed;Unavailable: Altered Mental Status
--- NOTE | 2017-10-09 21:32 | CP.PCM.PN ---
Subjective - Date & Time of Evaluation Date of Evaluation: 10/09/17 Time of Evaluation: 20:00 - Subjective Subjective: A procedure was performed today for evacuation of left pleural effusion, large amount 1.1 litres of pleural effusion fluid. Patient tolerated the procedure and is stable post surgically. No seizures Objective - Vital Signs/Intake and Output Vital Signs (last 24 hours): Temp Pulse Resp BP Pulse Ox 98.6 F 90 30 H 137/58 L 100 10/09/17 20:00 10/09/17 20:00 10/09/17 20:00 10/09/17 20:00 10/09/17 20:00 Intake and Output: 10/09/17 10/10/17 18:59 06:59 Output Total 1000 Balance -1000 - Medications Medications: Current Medications Acetaminophen (Tylenol 650mg/20.3ml Solution Ud) 650 mg PO Q6 PRN PRN Reason: fever Last Admin: 10/02/17 20:45 Dose: 650 mg Acetazolamide (Diamox 250 Mg Tab) 250 mg PO BID [facility] Last Admin: 10/09/17 17:33 Dose: 250 mg Amiodarone HCl (Cordarone) 200 mg PO BID [facility] Last Admin: 10/09/17 17:32 Dose: 200 mg Calcium Carbonate (Oscal) 500 mg PO BIDWM [facility] Last Admin: 10/09/17 17:35 Dose: 500 mg Dimethicone (Proshield Plus Skin Protectant) 1 applic TOP Q8 [facility] Last Admin: 10/09/17 17:35 Dose: 1 applic Ergocalciferol (Drisdol 50,000 Intl Units Cap) 1 cap PO Q7D [facility] Last Admin: 10/02/17 23:16 Dose: 1 cap Metronidazole (Flagyl 500mg/100ml Ns) 100 mls @ 100 mls/hr IVPB Q8 YUKI PRN Reason: Protocol Last Admin: 10/09/17 17:33 Dose: 100 mls/hr Lactobacillus Acidophilus (Bacid Acidophilus) 1 cap PO BID [facility] Last Admin: 10/09/17 17:36 Dose: 1 cap Levalbuterol HCl (Xopenex) 1.25 mg INH RQ4 [facility] Last Admin: 10/09/17 19:18 Dose: 1.25 mg Levothyroxine Sodium (Synthroid) 12.5 mcg PO DAILY@0630 [facility] Last Admin: 10/09/17 06:19 Dose: 12.5 mcg Metoprolol Tartrate (Lopressor) 2.5 mg IVP Q6 [facility] Last Admin: 10/09/17 17:34 Dose: 2.5 mg - Labs Labs: 10/09/17 04:10 10/09/17 04:10 PT 16.0 Seconds (9.8-13.1) H 10/07/17 05:10 INR 1.4 (0.9-1.2) H 10/07/17 05:10 APTT 37.4 Seconds (25.6-37.1) H 10/03/17 04:20 Assessment and Plan (1) CANDELARIA (acute kidney injury) Status: Acute (2) Acute respiratory failure Status: Acute (3) Altered mental status Status: Acute (4) Pleural effusion, bilateral Status: Acute (5) Pneumonia Status: Acute (6) Seizure disorder Status: Suspected (7) Encephalopathy Status: Acute
[2017-10-10] MEDS: metroNIDAZOLE 500mg/100ml NS 100 ML IVPB SCH ×3 (00:27→16:05)
[2017-10-10] MEDS: Ergocalciferol 50,000 Intl Units Cap PO SCH (00:28)
[2017-10-10] MEDS: Proshield Plus GEL TOP SCH ×4 (01:12→16:06)
[2017-10-10] MEDS: Metoprolol 1 mg/ml Inj IVP SCH ×4 (04:15→21:07)
[2017-10-10] MEDS: Levalbuterol 1.25 MG/3 ML Inhal Soln UD INH SCH ×5 (05:03→19:17)
[2017-10-10] MEDS: Levothyroxine 25 MCG TAB PO SCH (05:39)
[2017-10-10 05:57] LABS: ABG ALLEN TEST YES; ARTERIAL BLOOD GAS HCO3 33.6 mmol/L (21-28); ARTERIAL BLOOD GAS O2 SAT 99.8 % (95-98); ARTERIAL BLOOD GAS PCO2 55 mm/Hg (35-45); ARTERIAL BLOOD GAS PH 7.44 (7.35-7.45); ARTERIAL BLOOD GAS PO2 107 mm/Hg (80-100); ARTERIAL BLOOD GAS TCO2 39.1 mmol/L (22-28)
[2017-10-10 06:33] LABS: BASO % 0.8 % (0.0-2.0); EOS # 0.1 K/uL (0.0-0.7); EOS % 2.3 % (0.0-4.0); HEMOGLOBIN 8.3 g/dL (12.0-18.0); LYMPH # 0.7 K/uL (1.0-4.3); LYMPH % 11.3 % (20.0-40.0); MEAN CELL VOLUME 93.2 fl (80.0-94.0); MEAN CORPUSCULAR HEMOGLOBIN 30.2 pg (27.0-31.0); MEAN CORPUSCULAR HGB CONC 32.4 g/dL (33.0-37.0); MEAN PLATELET VOLUME 9.4 fl (7.2-11.7); MONO # 0.3 K/uL (0.0-0.8); MONO % 5.8 % (0.0-10.0); NEUT # 4.8 K/uL (1.8-7.0); NEUT % 79.8 % (50.0-75.0); NRBC % 0.1 % (0.0-0.0); RBC 2.75 Mil/uL (4.40-5.90); RED CELL DISTRIBUTION WIDTH 18.2 % (11.5-14.5)
[2017-10-10 06:47] LABS: ALB/GLOB RATIO 0.6 (1.0-2.1); ALBUMIN 1.7 g/dL (3.5-5.0); ALT/SGPT 34 U/L (21-72); AST/SGOT 19 U/L (17-59); BLOOD UREA NITROGEN 41 mg/dl (9-20); CALCIUM 5.6 mg/dL (8.4-10.2); GFR AFRICAN-AMERICAN > 60; GFR NON-AFRICAN AMERICAN 58
--- NOTE | 2017-10-10 08:04 | CP.PCM.PN ---
Subjective - Date & Time of Evaluation Date of Evaluation: 10/10/17 Time of Evaluation: 08:02 - Subjective Subjective: Patient is arousable opening his eyes. Receiving continuous oxygen by mask. Patient apparently was not given D5W as there was supposed to be receiving. Therefore serum sodium is still high 158 serum chloride remained high. at the bedside Lab reviewed Objective - Vital Signs/Intake and Output Vital Signs (last 24 hours): Temp Pulse Resp BP Pulse Ox 98.8 F 78 25 H 118/64 100 10/10/17 04:00 10/10/17 05:51 10/10/17 05:51 10/10/17 05:51 10/10/17 05:51 Intake and Output: 10/10/17 10/10/17 06:59 18:59 Intake Total 1750 Output Total 650 Balance 1100 - Medications Medications: Current Medications Acetaminophen (Tylenol 650mg/20.3ml Solution Ud) 650 mg PO Q6 PRN PRN Reason: fever Last Admin: 10/02/17 20:45 Dose: 650 mg Acetazolamide (Diamox 250 Mg Tab) 250 mg PO BID [facility] Last Admin: 10/09/17 17:33 Dose: 250 mg Amiodarone HCl (Cordarone) 200 mg PO BID [facility] Last Admin: 10/09/17 17:32 Dose: 200 mg Calcium Carbonate (Oscal) 500 mg PO BIDWM [facility] Last Admin: 10/09/17 17:35 Dose: 500 mg Dimethicone (Proshield Plus Skin Protectant) 1 applic TOP Q8 [facility] Last Admin: 10/10/17 01:12 Dose: 1 applic Ergocalciferol (Drisdol 50,000 Intl Units Cap) 1 cap PO Q7D [facility] Last Admin: 10/10/17 00:28 Dose: 1 cap Metronidazole (Flagyl 500mg/100ml Ns) 100 mls @ 100 mls/hr IVPB Q8 YUKI PRN Reason: Protocol Last Admin: 10/10/17 00:27 Dose: 100 mls/hr Potassium Chloride (Potassium Cl 10meq/50ml Sterile Water) 50 mls @ 50 mls/hr IVPB Q1 YUKI Stop: 10/10/17 10:59 Dextrose (Dextrose 5% In Water 1000 Ml) 1,000 mls @ 100 mls/hr IV .Q10H [facility] Stop: 10/11/17 08:01 Lactobacillus Acidophilus (Bacid Acidophilus) 1 cap PO BID [facility] Last Admin: 10/09/17 17:36 Dose: 1 cap Levalbuterol HCl (Xopenex) 1.25 mg INH RQ4 [facility] Last Admin: 10/10/17 07:34 Dose: 1.25 mg Levothyroxine Sodium (Synthroid) 12.5 mcg PO DAILY@0630 [facility] Last Admin: 10/10/17 05:39 Dose: 12.5 mcg Metoprolol Tartrate (Lopressor) 2.5 mg IVP Q6 [facility] Last Admin: 10/10/17 04:15 Dose: 2.5 mg - Labs Labs: 10/10/17 05:00 10/10/17 05:00 PT 16.0 Seconds (9.8-13.1) H 10/07/17 05:10 INR 1.4 (0.9-1.2) H 10/07/17 05:10 APTT 37.4 Seconds (25.6-37.1) H 10/03/17 04:20 - Constitutional Appears: No Acute Distress - ENT Exam ENT Exam: Mucous Membranes Dry - Neck Exam Neck Exam: absent: Lymphadenopathy - Respiratory Exam Respiratory Exam: absent: Chest Wall Tenderness - Cardiovascular Exam Cardiovascular Exam: absent: JVD, Rubs - GI/Abdominal Exam GI & Abdominal Exam: Soft, Normal Bowel Sounds - Extremities Exam Extremities Exam: absent: Calf Tenderness - Back Exam Back Exam: absent: CVA tenderness (L), CVA tenderness (R) - Neurological Exam Neurological Exam: Altered - Skin Skin Exam: absent: Cyanosis Assessment and Plan (1) CANDELARIA (acute kidney injury) Assessment & Plan: Acute kidney injury continued to improve. Hypernatremia serum sodium is still high 158 And hyperchloremia Patient apparently was not given D5W as supposed to be given. It was any order right now D5W. At 100 mL/h and to mix all IV medication was D5W. Hypokalemia patient was given stat potassium chloride 3 runs of 10 mEq now. Hypocalcemia although corrected serum calcium would be close to 7. Patient is receiving oral calcium carbonate. Chest tube noted to be still in place. Status: Acute (2) Altered mental status Status: Acute (3) Diastolic CHF, acute on chronic Status: Acute (4) Hypernatremia Status: Acute
[2017-10-10] MEDS: Lactobacillus Acidophilus 500 MU Cap PO SCH ×2 (08:27→16:05)
[2017-10-10] MEDS: Potassium CL 10 MEQ/50 ML 50 ML IVPB SCH ×3 (08:59→11:17)
[2017-10-10] MEDS ORDERED: Potassium CL 10 MEQ/50 ML 50 ML IVPB SCH (09:00)
--- NOTE | 2017-10-10 09:17 | RAD ---
HISTORY: f/u effusions COMPARISON: Chest radiograph dated 10/09/2017. FINDINGS: LUNGS: Pulmonary vascular congestion. Bibasilar atelectasis. Right basilar infiltrate versus effusion. PLEURA: Small left pleural effusion. Small to moderate right pleural effusion versus infiltrate. No pneumothorax apparent. CARDIOVASCULAR: Left subclavian access pacemaker redemonstrated. Atherosclerotic aortic calcifications. Cardiomediastinal silhouette stably prominent. OSSEOUS STRUCTURES: Unchanged. VISUALIZED UPPER ABDOMEN: Normal. OTHER FINDINGS: Right upper extremity PICC, unchanged. Enteric tube, unchanged. Right basilar pigtail chest tube, unchanged. IMPRESSION: Small left pleural effusion. Small to moderate right pleural effusion versus infiltrate.
[2017-10-10] MEDS ORDERED: Potassium Chloride 20 mEq/15 ml LIQ UD PO ONE (09:30)
[2017-10-10] MEDS ORDERED: Calcium Gluconate 4.65 mEq/10 ml Inj IV ONE (14:28)
--- NOTE | 2017-10-10 15:04 | CP.PCM.PN ---
Subjective - Date & Time of Evaluation Date of Evaluation: 10/10/17 Time of Evaluation: 10:15 - Subjective Subjective: F/U Respiratory failure. Eyes open , non verbal Objective - Vital Signs/Intake and Output Vital Signs (last 24 hours): Temp Pulse Resp BP Pulse Ox 98.2 F 84 26 H 139/67 100 10/10/17 12:00 10/10/17 14:00 10/10/17 14:00 10/10/17 14:00 10/10/17 14:00 Intake and Output: 10/10/17 10/10/17 06:59 18:59 Intake Total 1750 1654 Output Total 650 Balance 1100 1654 - Medications Medications: Current Medications Acetaminophen (Tylenol 650mg/20.3ml Solution Ud) 650 mg PO Q6 PRN PRN Reason: fever Last Admin: 10/02/17 20:45 Dose: 650 mg Acetazolamide (Diamox 250 Mg Tab) 250 mg PO BID [facility] Last Admin: 10/10/17 08:25 Dose: 250 mg Amiodarone HCl (Cordarone) 200 mg PO BID [facility] Last Admin: 10/10/17 08:25 Dose: 200 mg Calcium Carbonate (Oscal) 500 mg PO BIDWM [facility] Last Admin: 10/10/17 08:26 Dose: 500 mg Dimethicone (Proshield Plus Skin Protectant) 1 applic TOP Q8 [facility] Last Admin: 10/10/17 08:28 Dose: 1 applic Ergocalciferol (Drisdol 50,000 Intl Units Cap) 1 cap PO Q7D [facility] Last Admin: 10/10/17 00:28 Dose: 1 cap Metronidazole (Flagyl 500mg/100ml Ns) 100 mls @ 100 mls/hr IVPB Q8 YUKI PRN Reason: Protocol Last Admin: 10/10/17 08:25 Dose: 100 mls/hr Dextrose (Dextrose 5% In Water 1000 Ml) 1,000 mls @ 100 mls/hr IV .Q10H [facility] Stop: 10/11/17 08:01 Last Admin: 10/10/17 08:58 Dose: 100 mls/hr Calcium Gluconate 4.6 meq/ (Sodium Chloride) 59.8924 mls @ 119.785 mls/hr IV ONCE ONE Stop: 10/10/17 15:14 Last Admin: 10/10/17 14:50 Dose: 119.785 mls/hr Lactobacillus Acidophilus (Bacid Acidophilus) 1 cap PO BID [facility] Last Admin: 10/10/17 08:27 Dose: 1 cap Levalbuterol HCl (Xopenex) 1.25 mg INH RQ4 [facility] Last Admin: 10/10/17 11:57 Dose: 1.25 mg Levothyroxine Sodium (Synthroid) 12.5 mcg PO DAILY@0630 [facility] Last Admin: 10/10/17 05:39 Dose: 12.5 mcg Metoprolol Tartrate (Lopressor) 2.5 mg IVP Q6 [facility] Last Admin: 10/10/17 08:59 Dose: 2.5 mg - Labs Labs: 10/10/17 05:00 10/10/17 05:00 PT 16.0 Seconds (9.8-13.1) H 10/07/17 05:10 INR 1.4 (0.9-1.2) H 10/07/17 05:10 APTT 37.4 Seconds (25.6-37.1) H 10/03/17 04:20 - Constitutional Appears: Chronically Ill - Head Exam Head Exam: NORMAL INSPECTION - Eye Exam Eye Exam: PERRL - Neck Exam Neck Exam: Normal Inspection - Respiratory Exam Respiratory Exam: Decreased Breath Sounds (at bases), Rhonchi (scattered) - Cardiovascular Exam Cardiovascular Exam: Irregular Rhythm - GI/Abdominal Exam GI & Abdominal Exam: Soft, Normal Bowel Sounds - Extremities Exam Additional comments: Edema - Back Exam Additional comments: DTI Sacral - Neurological Exam Additional comments: Eyes open , non verbal, generalized weakness. - Skin Skin Exam: Warm Assessment and Plan (1) Acute respiratory failure with hypoxia Status: Acute (2) Aspiration pneumonia Status: Acute (3) Altered mental status Status: Acute (4) Pleural effusion, bilateral Status: Acute (5) Chronic CHF Status: Deleted (6) Hx of seizure disorder Status: Chronic (7) A-fib Status: Chronic (8) CANDELARIA (acute kidney injury) Status: Acute (9) Hypothermia Status: Deleted (10) HTN (hypertension) Status: Chronic (11) Collapse of right lung Status: Resolved - Assessment and Plan (Free Text) Plan: R Pigtail to be removed, continue High Flow O2 , Amiodarone , Metropolol , Xopenex and rest of treatment ICU Time: 40 min.
--- NOTE | 2017-10-10 15:29 | CP.CCUPN ---
CCU Subjective - Physician Review Subjective (Free Text): Eyes open when turned over to left side in preparation to remove clotted and non -draining R pigtail catheter. Pigtail removed after suture and locking wire cut. Large formed fibrin clot noted at head of the catheter hub and another formed fibrin clot found adherent at the end of the catheter trailing the tip as catheter removed from pleural cavity, then serous pleural fluid noted to be freely draining from chest wound. Sterile occlusive over an absorbent dressing placed onto the wound. Patient tolerated removal well, entire length of catheter visualized and removed in its entirety. Other vitals and I/O's reviewed. No fever spikes; Urine output approx 1650 ml overnight, off lasix drip. ROS: Unobtainable due to lethargy, non verbal. No other pertinent negs or positives on 10+ system review. PMSFH: All other Nursing and physician documentation reviewed to date; no new pertinent info noted relevant to current medical problems. CXR: R pigtail catheter intact, no PTX, R lung with small basilar haziness. Left basilar region clear (my interp). IMPRESSION / MAJOR PROBLEMS NOW: 1. Acute Resp ( Hypoxemic) failure 2 bilat effusions, and compressive atelectasis, unclear if any superimposed pneumonitic process. 2. Encephalopathy: etiology unclear, ?? metabolic vs cryptogenic seizures vs ?? CVA?? 3. Chronic A Fib, presently with controlled VR 4. r/o Cardiomyopathy vs Diastolic Dysfx CHF- non-invasive TTE shows preserved EF. 5. Azotemia, CKD III ( Bun/Cr was 36/1.5 at the time of last hospital discharge) 6. Warfarin induced-coagulopathy PLAN: 1. Monitor amount of soaked dressings if any from R chest wound fluid output. If significant, consider chest tube replacement. 2. Can try decreasing FiO2 on HFNC, now at 50% oxygen at 30 LPM flow. 3. Will discuss with Pulm/PMD on any utility in further mgmt by Carolynn jeter for recurrent effusions. 4. Replete a bit of Calcium IV, states he is complaining of feeling weak. 5. Still hypernatremic, slowly resolving by 1 meq /day. 6. Clinitron bed placed for new stage 4 decubitus wounds. CCU Objective - Vital Signs / Intake & Output Vital Signs (Last 4 hours): Vital Signs Temp Pulse Resp BP Pulse Ox 10/10/17 14:00 84 26 H 139/67 100 10/10/17 12:00 98.2 F 82 27 H 106/52 L 100 Intake and Output (Last 8hrs): Intake & Output 10/10/17 10/10/17 10/10/17 06:59 14:59 22:59 Intake Total 1750 1654 Output Total 650 Balance 1100 1654 Weight 172 lb Intake: IV 404 Intake, Piggyback 100 150 Tube Feeding 600 400 Free Water Flush 1050 700 Output: Urine 650 Urethral (Wang) 650 Other: # Bowel Movements 2 1 - Physical Exam Head: Positive for: Atraumatic, Normocephalic Pupils: Positive for: PERRL, Sluggish Extroacular Muscles: Positive for: EOMI Conjunctiva: Positive for: Normal. Negative for: Icteric Ears: Positive for: Normal Mouth: Positive for: Moist Mucous Membranes Pharnyx: Negative for: ERYTHEMA Neck: Positive for: Normal Range of Motion. Negative for: JVD Respiratory/Chest: Positive for: Decreased Breath Sounds, Rhonchi (upper airway rhonchi), Tachypneic. Negative for: Accessory Muscle Use, Wheezes Cardiovascular: Positive for: Irregular Rhythm, Peripheal Pulses Present, Tachycardic. Negative for: Murmurs, Normal S1, S2, Rub Abdomen: Positive for: Normal Bowel Sounds. Negative for: Tenderness, Distention, Peritoneal Signs Upper Extremity: Positive for: Edema Lower Extremity: Positive for: Edema, NORMAL PULSES. Negative for: CALF TENDERNESS, Cyanosis Neurological: Positive for: Other (withdraws to deep pain) Skin: Positive for: Warm, Dry. Negative for: Rashes Psychiatric: Positive for: Lethargic - Medications Active Medications: Active Medications Generic Name Dose Route Start Last Admin Trade Name Freq PRN Reason Stop Dose Admin Acetaminophen 650 mg 09/29/17 13:49 10/02/17 20:45 Tylenol 650mg/20.3ml Solution Ud PO 650 mg Q6 PRN Administration fever Acetazolamide 250 mg 10/09/17 17:00 10/10/17 08:25 Diamox 250 Mg Tab PO 250 mg BID YUKI Administration Amiodarone HCl 200 mg 09/29/17 17:00 10/10/17 08:25 Cordarone PO 200 mg BID YUKI Administration Calcium Carbonate 500 mg 09/26/17 08:00 10/10/17 08:26 Oscal PO 500 mg BIDWM YUKI Administration Dimethicone 1 applic 10/07/17 17:00 10/10/17 08:28 Proshield Plus Skin Protectant TOP 1 applic Q8 YUKI Administration Ergocalciferol 1 cap 09/25/17 23:45 10/10/17 00:28 Drisdol 50,000 Intl Units Cap PO 1 cap Q7D YUKI Administration Metronidazole 100 mls @ 100 mls/hr 10/07/17 17:00 10/10/17 08:25 Flagyl 500mg/100ml Ns IVPB 100 mls/hr Q8 YUKI Administration Protocol Dextrose 1,000 mls @ 100 mls/hr 10/10/17 08:00 10/10/17 08:58 Dextrose 5% In Water 1000 Ml IV 10/11/17 08:01 100 mls/hr .Q10H YUKI Administration Lactobacillus Acidophilus 1 cap 10/08/17 09:00 10/10/17 08:27 Bacid Acidophilus PO 1 cap BID YUKI Administration Levalbuterol HCl 1.25 mg 10/09/17 08:00 10/10/17 11:57 Xopenex INH 1.25 mg RQ4 YUKI Administration Levothyroxine Sodium 12.5 mcg 10/09/17 06:30 10/10/17 05:39 Synthroid PO 12.5 mcg DAILY@0630 YUKI Administration Metoprolol Tartrate 2.5 mg 09/27/17 10:00 10/10/17 08:59 Lopressor IVP 2.5 mg Q6 YUKI Administration - Patient Studies Lab Studies: Lab Studies 10/10/17 10/10/17 10/10/17 Range/Units 05:50 05:00 05:00 WBC 6.0 (4.8-10.8) K/uL RBC 2.75 L (4.40-5.90) Mil/uL Hgb 8.3 L (12.0-18.0) g/dL Hct 25.6 L (35.0-51.0) % MCV 93.2 (80.0-94.0) fl MCH 30.2 (27.0-31.0) pg MCHC 32.4 L (33.0-37.0) g/dL RDW 18.2 H (11.5-14.5) % Plt Count 491 H (130-400) K/uL MPV 9.4 (7.2-11.7) fl Neut % (Auto) 79.8 H (50.0-75.0) % Lymph % (Auto) 11.3 L (20.0-40.0) % [place] % (Auto) 5.8 (0.0-10.0) % Eos % (Auto) 2.3 (0.0-4.0) % Baso % (Auto) 0.8 (0.0-2.0) % Neut # 4.8 (1.8-7.0) K/uL Lymph # 0.7 L (1.0-4.3) K/uL [place] # 0.3 (0.0-0.8) K/uL Eos # 0.1 (0.0-0.7) K/uL Baso # 0.0 (0.0-0.2) K/uL pCO2 55 H (35-45) mm/Hg pO2 107 H (80-100) mm/Hg HCO3 33.6 H (21-28) mmol/L ABG pH 7.44 (7.35-7.45) ABG Total CO2 39.1 H (22-28) mmol/L ABG O2 Saturation 99.8 H (95-98) % ABG Base Excess 11.1 H (-2.0-3.0) mmol/L Broderick Test Yes ABG Potassium 3.8 (3.6-5.2) mmol/L A-a O2 Difference 181.0 mm/Hg Glucose 115 H (75-110) mg/dL Lactate 1.0 (0.7-2.1) mmol/L Vent Mode High flow lpm FiO2 50.0 % Sodium 159.0 H 158 H (132-148) mmol/l Potassium 2.9 L (3.6-5.0) MMOL/L Chloride 125.0 H 128 H (98-107) mmol/L Carbon Dioxide 27 (22-30) mmol/L Anion Gap 6 L (10-20) BUN 41 H (9-20) mg/dl Creatinine 1.2 (0.8-1.5) mg/dl Est GFR ( Amer) > 60 Est GFR (Non-Af Amer) 58 Random Glucose 93 (75-110) mg/dL Calcium 5.6 L* D (8.4-10.2) mg/dL Total Bilirubin 0.2 (0.2-1.3) mg/dl AST 19 (17-59) U/L ALT 34 (21-72) U/L Alkaline Phosphatase 52 (38-126) U/L Total Protein 4.3 L (6.3-8.2) G/DL Albumin 1.7 L D (3.5-5.0) g/dL Globulin 2.6 (2.2-3.9) gm/dL Albumin/Globulin Ratio 0.6 L (1.0-2.1) Arterial Blood Potassium 3.8 (3.6-5.2) mmol/L Laboratory Results - last 24 hr 10/10/17 10/10/17 10/10/17 05:00 05:00 05:50 WBC 6.0 RBC 2.75 L Hgb 8.3 L Hct 25.6 L MCV 93.2 MCH 30.2 MCHC 32.4 L RDW 18.2 H Plt Count 491 H MPV 9.4 Neut % (Auto) 79.8 H Lymph % (Auto) 11.3 L [place] % (Auto) 5.8 Eos % (Auto) 2.3 Baso % (Auto) 0.8 Neut # 4.8 Lymph # 0.7 L [place] # 0.3 Eos # 0.1 Baso # 0.0 pCO2 55 H pO2 107 H HCO3 33.6 H ABG pH 7.44 ABG Total CO2 39.1 H ABG O2 Saturation 99.8 H ABG Base Excess 11.1 H Bro[place]ick Test Yes ABG Potassium 3.8 A-a O2 Difference 181.0 Glucose 115 H Lactate 1.0 Vent Mode High flow lpm FiO2 50.0 Sodium 158 H 159.0 H Potassium 2.9 L Chloride 128 H 125.0 H Carbon Dioxide 27 Anion Gap 6 L BUN 41 H Creatinine 1.2 Est GFR ( Amer) > 60 Est GFR (Non-Af Amer) 58 Random Glucose 93 Calcium 5.6 L* D Total Bilirubin 0.2 AST 19 ALT 34 Alkaline Phosphatase 52 Total Protein 4.3 L Albumin 1.7 L D Globulin 2.6 Albumin/Globulin Ratio 0.6 L Arterial Blood Potassium 3.8 Fingerstick Blood Sugar Results: 83 Review of Systems - Review of Systems Systems not reviewed;Unavailable: Altered Mental Status
--- NOTE | 2017-10-10 16:44 | CP.PCM.PN ---
Subjective - Date & Time of Evaluation Date of Evaluation: 10/10/17 Time of Evaluation: 07:00 - Subjective Subjective: afebrile lethargic NAD CT out at bedside Objective - Vital Signs/Intake and Output Vital Signs (last 24 hours): Temp Pulse Resp BP Pulse Ox 97.7 F 88 26 H 124/58 L 100 10/10/17 16:00 10/10/17 16:05 10/10/17 14:00 10/10/17 16:00 10/10/17 16:00 Intake and Output: 10/10/17 10/10/17 06:59 18:59 Intake Total 1750 1654 Output Total 650 Balance 1100 1654 - Medications Medications: Current Medications Acetaminophen (Tylenol 650mg/20.3ml Solution Ud) 650 mg PO Q6 PRN PRN Reason: fever Last Admin: 10/02/17 20:45 Dose: 650 mg Acetazolamide (Diamox 250 Mg Tab) 250 mg PO BID [facility] Last Admin: 10/10/17 16:05 Dose: 250 mg Amiodarone HCl (Cordarone) 200 mg PO BID [facility] Last Admin: 10/10/17 16:05 Dose: 200 mg Calcium Carbonate (Oscal) 500 mg PO BIDWM [facility] Last Admin: 10/10/17 16:05 Dose: 500 mg Dimethicone (Proshield Plus Skin Protectant) 1 applic TOP Q8 [facility] Last Admin: 10/10/17 16:06 Dose: Not Given Ergocalciferol (Drisdol 50,000 Intl Units Cap) 1 cap PO Q7D [facility] Last Admin: 10/10/17 00:28 Dose: 1 cap Metronidazole (Flagyl 500mg/100ml Ns) 100 mls @ 100 mls/hr IVPB Q8 YUKI PRN Reason: Protocol Last Admin: 10/10/17 16:05 Dose: 100 mls/hr Dextrose (Dextrose 5% In Water 1000 Ml) 1,000 mls @ 100 mls/hr IV .Q10H [facility] Stop: 10/11/17 08:01 Last Admin: 10/10/17 08:58 Dose: 100 mls/hr Lactobacillus Acidophilus (Bacid Acidophilus) 1 cap PO BID [facility] Last Admin: 10/10/17 16:05 Dose: 1 cap Levalbuterol HCl (Xopenex) 1.25 mg INH RQ4 YUKI Last Admin: 10/10/17 15:59 Dose: 1.25 mg Levothyroxine Sodium (Synthroid) 12.5 mcg PO DAILY@0630 [facility] Last Admin: 10/10/17 05:39 Dose: 12.5 mcg Metoprolol Tartrate (Lopressor) 2.5 mg IVP Q6 [facility] Last Admin: 10/10/17 15:47 Dose: 2.5 mg - Labs Labs: 10/10/17 05:00 10/10/17 05:00 PT 16.0 Seconds (9.8-13.1) H 10/07/17 05:10 INR 1.4 (0.9-1.2) H 10/07/17 05:10 APTT 37.4 Seconds (25.6-37.1) H 10/03/17 04:20 - Constitutional Appears: Non-toxic, Cachectic, Chronically Ill - Head Exam Head Exam: NORMOCEPHALIC - Eye Exam Eye Exam: PERRL - ENT Exam ENT Exam: Mucous Membranes Dry - Neck Exam Neck Exam: absent: Lymphadenopathy - Respiratory Exam Respiratory Exam: Decreased Breath Sounds - Cardiovascular Exam Cardiovascular Exam: REGULAR RHYTHM - GI/Abdominal Exam GI & Abdominal Exam: Distended, Soft. absent: Tenderness - Rectal Exam Rectal Exam: Deferred - Exam Exam: NORMAL INSPECTION Assessment and Plan (1) CANDELARIA (acute kidney injury) Status: Acute (2) Acute respiratory failure Status: Acute (3) Altered mental status Status: Acute (4) Diastolic CHF, acute on chronic Status: Acute (5) Pleural effusion, bilateral Status: Acute (6) Pneumonia Status: Acute
--- NOTE | 2017-10-11 00:24 | CP.PCM.PN ---
Subjective - Date & Time of Evaluation Date of Evaluation: 10/10/17 Time of Evaluation: 20:40 - Subjective Subjective: No seizures, doing better, opening his eyes to verbal stimulation and smiles at times. IMPRESSION of CXR: Small left pleural effusion. Small to moderate right pleural effusion versus infiltrate. Right chest tube removed. He is not suffering from Seizures and is on a low dose of Lamictal 25 mg Q 12hrs, as the does not want higher doses. He is still on high flow Oxygen. Normal V.S. Objective - Vital Signs/Intake and Output Vital Signs (last 24 hours): Temp Pulse Resp BP Pulse Ox 98.9 F 78 25 H 112/52 L 100 10/10/17 22:00 10/10/17 22:00 10/10/17 22:00 10/10/17 22:00 10/10/17 22:00 Intake and Output: 10/10/17 10/11/17 18:59 06:59 Intake Total 2604 Output Total 750 Balance 1854 - Medications Medications: Current Medications Acetaminophen (Tylenol 650mg/20.3ml Solution Ud) 650 mg PO Q6 PRN PRN Reason: fever Last Admin: 10/02/17 20:45 Dose: 650 mg Acetazolamide (Diamox 250 Mg Tab) 250 mg PO BID [facility] Last Admin: 10/10/17 16:05 Dose: 250 mg Amiodarone HCl (Cordarone) 200 mg PO BID [facility] Last Admin: 10/10/17 16:05 Dose: 200 mg Calcium Carbonate (Oscal) 500 mg PO BIDWM [facility] Last Admin: 10/10/17 16:05 Dose: 500 mg Dimethicone (Proshield Plus Skin Protectant) 1 applic TOP Q8 [facility] Last Admin: 10/10/17 16:06 Dose: Not Given Ergocalciferol (Drisdol 50,000 Intl Units Cap) 1 cap PO Q7D [facility] Last Admin: 10/10/17 00:28 Dose: 1 cap Metronidazole (Flagyl 500mg/100ml Ns) 100 mls @ 100 mls/hr IVPB Q8 YUKI PRN Reason: Protocol Last Admin: 10/10/17 16:05 Dose: 100 mls/hr Dextrose (Dextrose 5% In Water 1000 Ml) 1,000 mls @ 100 mls/hr IV .Q10H [facility] Stop: 10/11/17 08:01 Last Admin: 10/10/17 20:30 Dose: 100 mls/hr Lactobacillus Acidophilus (Bacid Acidophilus) 1 cap PO BID [facility] Last Admin: 10/10/17 16:05 Dose: 1 cap Levalbuterol HCl (Xopenex) 1.25 mg INH RQ4 [facility] Last Admin: 10/10/17 19:17 Dose: 1.25 mg Levothyroxine Sodium (Synthroid) 12.5 mcg PO DAILY@0630 [facility] Last Admin: 10/10/17 05:39 Dose: 12.5 mcg Metoprolol Tartrate (Lopressor) 2.5 mg IVP Q6 [facility] Last Admin: 10/10/17 21:07 Dose: 2.5 mg - Labs Labs: 10/10/17 05:00 10/10/17 05:00 PT 16.0 Seconds (9.8-13.1) H 10/07/17 05:10 INR 1.4 (0.9-1.2) H 10/07/17 05:10 APTT 37.4 Seconds (25.6-37.1) H 10/03/17 04:20 Assessment and Plan (1) CANDELARIA (acute kidney injury) Status: Acute (2) Acute respiratory failure Status: Acute (3) Altered mental status Status: Acute (4) Pleural effusion, bilateral Status: Acute (5) Pneumonia Status: Acute (6) Seizure disorder Status: Suspected (7) Encephalopathy Status: Acute
[2017-10-11] MEDS: Levalbuterol 1.25 MG/3 ML Inhal Soln UD INH SCH ×7 (00:55→23:53)
[2017-10-11] MEDS: metroNIDAZOLE 500mg/100ml NS 100 ML IVPB SCH ×3 (01:10→16:03)
[2017-10-11] MEDS: Proshield Plus GEL TOP SCH ×3 (01:13→16:06)
[2017-10-11] MEDS: Metoprolol 1 mg/ml Inj IVP SCH ×5 (04:11→21:04)
[2017-10-11 05:49] LABS: HEMOGLOBIN 8.1 g/dL (12.0-18.0); MEAN CELL VOLUME 95.2 fl (80.0-94.0); MEAN CORPUSCULAR HEMOGLOBIN 28.8 pg (27.0-31.0); MEAN CORPUSCULAR HGB CONC 30.3 g/dL (33.0-37.0); RBC 2.81 Mil/uL (4.40-5.90); RED CELL DISTRIBUTION WIDTH 18.2 % (11.5-14.5); WHITE BLOOD COUNT 6.4 K/uL (4.8-10.8)
[2017-10-11 06:01] LABS: ALB/GLOB RATIO 0.7 (1.0-2.1); ALBUMIN 2.4 g/dL (3.5-5.0); CALCIUM 7.8 mg/dL (8.4-10.2)
[2017-10-11] MEDS: Levothyroxine 25 MCG TAB PO SCH (06:19)
--- NOTE | 2017-10-11 08:28 | US ---
PROCEDURE: ULTRASOUND-GUIDED THORACENTESIS CLINICAL HISTORY: 77-year-old male with symptomatic left pleural effusion is referred to Interventional Radiology for ultrasound-guided thoracentesis. COMPARISON: Chest radiograph performed earlier the same day PROCEDURE: 1. Ultrasound-guided left thoracentesis. PRE-PROCEDURE FINDINGS: 1. Large volume pleural effusion. POST-PROCEDURE FINDINGS: 1. No evidence of post-procedural complication. INTERVENTIONAL RADIOLOGIST: Benjamín Graham M.D. (the attending was present for the entire procedure.) ANESTHESIA: None. MEDICATION: Lidocaine 1% for local subcutaneous analgesia. COMPLICATIONS: None. PROCEDURE DESCRIPTION AND FINDINGS: The risks, benefits, alternatives and possible complications of the procedure were fully discussed; all questions were answered and informed consent was obtained. The patient was brought into the interventional suite and a pre-procedure 'time-out' was performed. The patient was placed in the seated position. Preliminary ultrasound images of the left hemithorax demonstrate a large simple pleural effusion. The left hemithorax was prepped and draped in the usual sterile fashion. Maximum sterile barrier precautions were maintained throughout the entire procedure. Following subcutaneous infiltration of lidocaine 1% for local analgesia, under ultrasound guidance, a 5 [place] centesis catheter was advanced into the left pleural space with real-time visualization of needle entry. The ultrasound images were permanently recorded and submitted to the PACS. The inner stylet was removed with prompt return of struck fluid. The catheter was attached to gentle vacuum suction. A total of 1100 mL of straw-colored fluid was aspirated. The drainage catheter was then removed. A sterile adhesive bandage was placed over the puncture site. The patient tolerated the procedure well without immediate post-procedure complications and was transferred back to the floor in stable condition. IMPRESSION: SUCCESSFUL ULTRASOUND-GUIDED LEFT THERAPEUTIC THORACENTESIS.
[2017-10-11] MEDS: Lactobacillus Acidophilus 500 MU Cap PO SCH ×2 (08:54→16:02)
[2017-10-11] MEDS ORDERED: Digoxin 500 mcg/2ml (0.5 mg/2ml) Inj IVP ONE (10:25)
--- NOTE | 2017-10-11 10:34 | CP.CCUPN ---
CCU Subjective - Physician Review Subjective (Free Text): No further improvement in neuromental status from yesterdays description. No further increase leakage from R chest catheter wound site. Remains on 50% oxygen and 30 LPM. Other vitals and I/O's reviewed. No fever spikes; fluid balance +1.5 Liters. HR still tachycardic in Rapid A Fib. ROS: Unobtainable due to lethargy, non verbal. No other pertinent negs or positives on 10+ system review. PMSFH: All other Nursing and physician documentation reviewed to date; no new pertinent info noted relevant to current medical problems. IMPRESSION / MAJOR PROBLEMS NOW: 1. Acute Resp ( Hypoxemic) failure 2 bilat effusions, and compressive atelectasis, unclear if any superimposed pneumonitic process. 2. Encephalopathy: etiology unclear, ?? metabolic vs cryptogenic seizures vs ?? CVA?? 3. Chronic A Fib, presently with controlled VR 4. r/o Cardiomyopathy vs Diastolic Dysfx CHF- non-invasive TTE shows preserved EF. 5. Azotemia, CKD III ( Bun/Cr was 36/1.5 at the time of last hospital discharge) 6. Warfarin induced-coagulopathy PLAN: 1. Repeat CXR in AM. Can try decreasing FiO2 on HFNC, now at 50% oxygen at 30 LPM flow. Will discuss with Pulm/PMD on any utility in further mgmt by Carolynn jeter for recurrent effusions. 2. Digoxin IVP now. Remains off Vasopressors. 3. Repleted Calcium, levels improved. 4. Still hypernatremic, slowly resolving by 1 meq /day. 5. Clinitron bed placed for new stage 4 decubitus wounds. CCU Objective - Vital Signs / Intake & Output Vital Signs (Last 4 hours): Vital Signs Temp Pulse Resp BP Pulse Ox 10/11/17 09:02 87 10/11/17 08:54 88 10/11/17 08:00 99.7 F H 81 27 H 117/56 L 100 10/11/17 07:29 24 Intake and Output (Last 8hrs): Intake & Output 10/10/17 10/11/17 10/11/17 22:59 06:59 14:59 Intake Total 950 500 300 Output Total 750 800 Balance 200 -300 300 Weight 172 lb Intake: IV 300 200 Intake, Piggyback 100 Tube Feeding 200 500 100 Free Water Flush 350 Output: Urine 750 800 Urethral (Wang) 750 800 Other: # Bowel Movements 1 - Physical Exam Head: Positive for: Atraumatic, Normocephalic Pupils: Positive for: PERRL, Sluggish Extroacular Muscles: Positive for: EOMI Conjunctiva: Positive for: Normal. Negative for: Icteric Ears: Positive for: Normal Mouth: Positive for: Moist Mucous Membranes Pharnyx: Negative for: ERYTHEMA Neck: Positive for: Normal Range of Motion. Negative for: JVD Respiratory/Chest: Positive for: Decreased Breath Sounds, Rhonchi (upper airway rhonchi), Tachypneic. Negative for: Accessory Muscle Use, Wheezes Cardiovascular: Positive for: Irregular Rhythm, Peripheal Pulses Present, Tachycardic. Negative for: Murmurs, Normal S1, S2, Rub Abdomen: Positive for: Normal Bowel Sounds. Negative for: Tenderness, Distention, Peritoneal Signs Upper Extremity: Positive for: Edema Lower Extremity: Positive for: Edema, NORMAL PULSES. Negative for: CALF TENDERNESS, Cyanosis Neurological: Positive for: Other (withdraws to deep pain) Skin: Positive for: Warm, Dry. Negative for: Rashes Psychiatric: Positive for: Lethargic - Medications Active Medications: Active Medications Generic Name Dose Route Start Last Admin Trade Name Freq PRN Reason Stop Dose Admin Acetaminophen 650 mg 09/29/17 13:49 10/02/17 20:45 Tylenol 650mg/20.3ml Solution Ud PO 650 mg Q6 PRN Administration fever Acetazolamide 250 mg 10/09/17 17:00 10/11/17 08:54 Diamox 250 Mg Tab PO 250 mg BID YUKI Administration Amiodarone HCl 200 mg 09/29/17 17:00 10/11/17 08:54 Cordarone PO 200 mg BID YUKI Administration Calcium Carbonate 500 mg 09/26/17 08:00 10/11/17 08:55 Oscal PO 500 mg BIDWM YUKI Administration Dimethicone 1 applic 10/07/17 17:00 10/11/17 08:54 Proshield Plus Skin Protectant TOP 1 applic Q8 YUKI Administration Ergocalciferol 1 cap 09/25/17 23:45 10/10/17 00:28 Drisdol 50,000 Intl Units Cap PO 1 cap Q7D YUKI Administration Metronidazole 100 mls @ 100 mls/hr 10/07/17 17:00 10/11/17 08:54 Flagyl 500mg/100ml Ns IVPB 100 mls/hr Q8 YUKI Administration Protocol Lactobacillus Acidophilus 1 cap 10/08/17 09:00 10/11/17 08:54 Bacid Acidophilus PO 1 cap BID YUKI Administration Levalbuterol HCl 1.25 mg 10/09/17 08:00 10/11/17 07:29 Xopenex INH 1.25 mg RQ4 YUKI Administration Levothyroxine Sodium 12.5 mcg 10/09/17 06:30 10/11/17 06:19 Synthroid PO 12.5 mcg DAILY@0630 YUKI Administration Metoprolol Tartrate 2.5 mg 09/27/17 10:00 10/11/17 09:02 Lopressor IVP 2.5 mg Q6 YUKI Administration - Patient Studies Lab Studies: Lab Studies 10/11/17 10/11/17 Range/Units 04:20 04:20 WBC 6.4 (4.8-10.8) K/uL RBC 2.81 L (4.40-5.90) Mil/uL Hgb 8.1 L (12.0-18.0) g/dL Hct 26.7 L (35.0-51.0) % MCV 95.2 H D (80.0-94.0) fl MCH 28.8 (27.0-31.0) pg MCHC 30.3 L (33.0-37.0) g/dL RDW 18.2 H (11.5-14.5) % Plt Count 446 H (130-400) K/uL Sodium 155 H (132-148) mmol/l Potassium 4.2 (3.6-5.0) MMOL/L Chloride 119 H (98-107) mmol/L Carbon Dioxide 31 H (22-30) mmol/L Anion Gap 9 L (10-20) BUN 47 H (9-20) mg/dl Creatinine 1.5 (0.8-1.5) mg/dl Est GFR ( Amer) 55 Est GFR (Non-Af Amer) 45 Random Glucose 130 H (75-110) mg/dL Calcium 7.8 L (8.4-10.2) mg/dL Total Bilirubin 0.3 (0.2-1.3) mg/dl AST 19 (17-59) U/L ALT 32 (21-72) U/L Alkaline Phosphatase 77 (38-126) U/L Total Protein 5.8 L (6.3-8.2) G/DL Albumin 2.4 L D (3.5-5.0) g/dL Globulin 3.4 (2.2-3.9) gm/dL Albumin/Globulin Ratio 0.7 L (1.0-2.1) Laboratory Results - last 24 hr 10/11/17 10/11/17 04:20 04:20 WBC 6.4 RBC 2.81 L Hgb 8.1 L Hct 26.7 L MCV 95.2 H D MCH 28.8 MCHC 30.3 L RDW 18.2 H Plt Count 446 H Sodium 155 H Potassium 4.2 Chloride 119 H Carbon Dioxide 31 H Anion Gap 9 L BUN 47 H Creatinine 1.5 Est GFR ( Amer) 55 Est GFR (Non-Af Amer) 45 Random Glucose 130 H Calcium 7.8 L Total Bilirubin 0.3 AST 19 ALT 32 Alkaline Phosphatase 77 Total Protein 5.8 L Albumin 2.4 L D Globulin 3.4 Albumin/Globulin Ratio 0.7 L Fingerstick Blood Sugar Results: 83 Review of Systems - Review of Systems Systems not reviewed;Unavailable: Altered Mental Status
--- NOTE | 2017-10-11 10:52 | US ---
PROCEDURE: Ultrasound of the Kidneys HISTORY: CANDELARIA COMPARISON: None available. TECHNIQUE: Sonogram of the kidneys. FINDINGS: RIGHT KIDNEY: Measures: 11.3 x 6.4 x 5.2 cm. Normal in size, contour and echogenicity. No stone, solid mass lesion or hydronephrosis visualized. LEFT KIDNEY: Measures: 9.1 x 5.2 x 4.3 cm. Normal in size, contour and echogenicity. No stone, solid mass lesion or hydronephrosis visualized. OTHER FINDINGS: None. IMPRESSION: Unremarkable renal sonogram.
--- NOTE | 2017-10-11 12:24 | CP.PCM.PN ---
Subjective - Date & Time of Evaluation Date of Evaluation: 10/11/17 Time of Evaluation: 12:20 - Subjective Subjective: No significant changes mentally patient remains somewhat lethargic. Vital signs noted . No vomiting reported or diarrhea. Objective - Vital Signs/Intake and Output Vital Signs (last 24 hours): Temp Pulse Resp BP Pulse Ox 99.7 F H 79 22 111/58 L 100 10/11/17 08:00 10/11/17 10:00 10/11/17 11:05 10/11/17 10:00 10/11/17 10:00 Intake and Output: 10/11/17 10/11/17 06:59 18:59 Intake Total 500 1250 Output Total 800 Balance -300 1250 - Medications Medications: Current Medications Acetaminophen (Tylenol 650mg/20.3ml Solution Ud) 650 mg PO Q6 PRN PRN Reason: fever Last Admin: 10/02/17 20:45 Dose: 650 mg Acetazolamide (Diamox 250 Mg Tab) 250 mg PO BID REPLACED BY [facility] Last Admin: 10/11/17 08:54 Dose: 250 mg Amiodarone HCl (Cordarone) 200 mg PO BID REPLACED BY [facility] Last Admin: 10/11/17 08:54 Dose: 200 mg Calcium Carbonate (Oscal) 500 mg PO BIDWM REPLACED BY [facility] Last Admin: 10/11/17 08:55 Dose: 500 mg Dimethicone (Proshield Plus Skin Protectant) 1 applic TOP Q8 REPLACED BY [facility] Last Admin: 10/11/17 08:54 Dose: 1 applic Ergocalciferol (Drisdol 50,000 Intl Units Cap) 1 cap PO Q7D REPLACED BY [facility] Last Admin: 10/10/17 00:28 Dose: 1 cap Metronidazole (Flagyl 500mg/100ml Ns) 100 mls @ 100 mls/hr IVPB Q8 [facility] PRN Reason: Protocol Last Admin: 10/11/17 08:54 Dose: 100 mls/hr Lactobacillus Acidophilus (Bacid Acidophilus) 1 cap PO BID REPLACED BY [facility] Last Admin: 10/11/17 08:54 Dose: 1 cap Levalbuterol HCl (Xopenex) 1.25 mg INH RQ4 REPLACED BY [facility] Last Admin: 10/11/17 11:38 Dose: 1.25 mg Levothyroxine Sodium (Synthroid) 12.5 mcg PO DAILY@0630 REPLACED BY [facility] Last Admin: 10/11/17 06:19 Dose: 12.5 mcg Metoprolol Tartrate (Lopressor) 2.5 mg IVP Q6 [facility] Last Admin: 10/11/17 09:02 Dose: 2.5 mg - Labs Labs: 10/11/17 04:20 10/11/17 04:20 PT 16.0 Seconds (9.8-13.1) H 10/07/17 05:10 INR 1.4 (0.9-1.2) H 10/07/17 05:10 APTT 37.4 Seconds (25.6-37.1) H 10/03/17 04:20 - Constitutional Appears: No Acute Distress - ENT Exam ENT Exam: Mucous Membranes Moist - Respiratory Exam Respiratory Exam: Rhonchi. absent: Chest Wall Tenderness - Cardiovascular Exam Cardiovascular Exam: Irregular Rhythm. absent: JVD, Rubs - GI/Abdominal Exam GI & Abdominal Exam: Soft, Normal Bowel Sounds - Extremities Exam Extremities Exam: absent: Calf Tenderness - Back Exam Back Exam: absent: CVA tenderness (L), CVA tenderness (R) - Neurological Exam Neurological Exam: Altered Assessment and Plan (1) CANDELARIA (acute kidney injury) Assessment & Plan: Serum creatinine has gone up to 1.5 on though it has been stable before. Patient has been improving and recovering from acute kidney injury. Hypokalemia, corrected. Hypocalcemia, improving serum calcium going on. The rest of the problem as noted. 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 Continue monitoring kidney function Status: Acute (2) Altered mental status Status: Acute (3) Diastolic CHF, acute on chronic Status: Acute (4) Hypernatremia Status: Acute
--- NOTE | 2017-10-11 13:32 | CP.PCM.PN ---
Subjective - Date & Time of Evaluation Date of Evaluation: 10/11/17 Time of Evaluation: 06:00 - Subjective Subjective: remains bed bound afebrile nad Objective - Vital Signs/Intake and Output Vital Signs (last 24 hours): Temp Pulse Resp BP Pulse Ox 98.4 F 80 24 132/72 100 10/11/17 12:00 10/11/17 12:00 10/11/17 12:00 10/11/17 12:00 10/11/17 12:00 Intake and Output: 10/11/17 10/11/17 06:59 18:59 Intake Total 500 1250 Output Total 800 Balance -300 1250 - Medications Medications: Current Medications Acetaminophen (Tylenol 650mg/20.3ml Solution Ud) 650 mg PO Q6 PRN PRN Reason: fever Last Admin: 10/02/17 20:45 Dose: 650 mg Acetazolamide (Diamox 250 Mg Tab) 250 mg PO BID [facility] Last Admin: 10/11/17 08:54 Dose: 250 mg Amiodarone HCl (Cordarone) 200 mg PO BID [facility] Last Admin: 10/11/17 08:54 Dose: 200 mg Calcium Carbonate (Oscal) 500 mg PO BIDWM [facility] Last Admin: 10/11/17 08:55 Dose: 500 mg Dimethicone (Proshield Plus Skin Protectant) 1 applic TOP Q8 [facility] Last Admin: 10/11/17 08:54 Dose: 1 applic Ergocalciferol (Drisdol 50,000 Intl Units Cap) 1 cap PO Q7D [facility] Last Admin: 10/10/17 00:28 Dose: 1 cap Metronidazole (Flagyl 500mg/100ml Ns) 100 mls @ 100 mls/hr IVPB Q8 [facility] PRN Reason: Protocol Last Admin: 10/11/17 08:54 Dose: 100 mls/hr Lactobacillus Acidophilus (Bacid Acidophilus) 1 cap PO BID [facility] Last Admin: 10/11/17 08:54 Dose: 1 cap Levalbuterol HCl (Xopenex) 1.25 mg INH RQ4 [facility] Last Admin: 10/11/17 11:38 Dose: 1.25 mg Levothyroxine Sodium (Synthroid) 12.5 mcg PO DAILY@0630 [facility] Last Admin: 10/11/17 06:19 Dose: 12.5 mcg Metoprolol Tartrate (Lopressor) 2.5 mg IVP Q6 [facility] Last Admin: 10/11/17 09:02 Dose: 2.5 mg - Labs Labs: 10/11/17 04:20 10/11/17 04:20 PT 16.0 Seconds (9.8-13.1) H 10/07/17 05:10 INR 1.4 (0.9-1.2) H 10/07/17 05:10 APTT 37.4 Seconds (25.6-37.1) H 10/03/17 04:20 - Constitutional Appears: Non-toxic, Cachectic, Chronically Ill - Head Exam Head Exam: NORMOCEPHALIC - Eye Exam Eye Exam: PERRL. absent: Scleral icterus - ENT Exam ENT Exam: Mucous Membranes Dry - Neck Exam Neck Exam: absent: Lymphadenopathy - Respiratory Exam Respiratory Exam: Decreased Breath Sounds, Rhonchi - Cardiovascular Exam Cardiovascular Exam: REGULAR RHYTHM - Rectal Exam Rectal Exam: Deferred - Exam Exam: NORMAL INSPECTION - Extremities Exam Extremities Exam: Pedal Edema Assessment and Plan (1) CANDELARIA (acute kidney injury) Status: Acute (2) Acute respiratory failure Status: Acute (3) Altered mental status Status: Acute (4) Diastolic CHF, acute on chronic Status: Acute (5) Pleural effusion, bilateral Status: Acute (6) Pneumonia Status: Acute
--- NOTE | 2017-10-11 17:46 | CP.PCM.PN ---
Subjective - Date & Time of Evaluation Date of Evaluation: 10/11/17 Time of Evaluation: 11:20 - Subjective Subjective: F/U Respiratory failure. Eyes open , Patient smiles appears to understand a conversation of her about past event They lived together Objective - Vital Signs/Intake and Output Vital Signs (last 24 hours): Temp Pulse Resp BP Pulse Ox 98.1 F 77 27 H 123/60 100 10/11/17 16:00 10/11/17 16:03 10/11/17 16:00 10/11/17 16:00 10/11/17 16:00 Intake and Output: 10/11/17 10/11/17 06:59 18:59 Intake Total 500 2550 Output Total 800 Balance -300 2550 - Medications Medications: Current Medications Acetaminophen (Tylenol 650mg/20.3ml Solution Ud) 650 mg PO Q6 PRN PRN Reason: fever Last Admin: 10/02/17 20:45 Dose: 650 mg Acetazolamide (Diamox 250 Mg Tab) 250 mg PO BID [facility] Last Admin: 10/11/17 16:01 Dose: 250 mg Amiodarone HCl (Cordarone) 200 mg PO BID [facility] Last Admin: 10/11/17 16:01 Dose: 200 mg Calcium Carbonate (Oscal) 500 mg PO BIDWM [facility] Last Admin: 10/11/17 16:01 Dose: 500 mg Dimethicone (Proshield Plus Skin Protectant) 1 applic TOP Q8 [facility] Last Admin: 10/11/17 16:06 Dose: 1 applic Ergocalciferol (Drisdol 50,000 Intl Units Cap) 1 cap PO Q7D [facility] Last Admin: 10/10/17 00:28 Dose: 1 cap Metronidazole (Flagyl 500mg/100ml Ns) 100 mls @ 100 mls/hr IVPB Q8 [facility] PRN Reason: Protocol Last Admin: 10/11/17 16:03 Dose: 100 mls/hr Dextrose (Dextrose 5% In Water 1000 Ml) 1,000 mls @ 100 mls/hr IV .Q10H [facility] Stop: 10/12/17 15:54 Last Admin: 10/11/17 15:57 Dose: 100 mls/hr Lactobacillus Acidophilus (Bacid Acidophilus) 1 cap PO BID [facility] Last Admin: 10/11/17 16:02 Dose: 1 cap Levalbuterol HCl (Xopenex) 1.25 mg INH RQ4 [facility] Last Admin: 10/11/17 15:06 Dose: 1.25 mg Levothyroxine Sodium (Synthroid) 12.5 mcg PO DAILY@0630 [facility] Last Admin: 10/11/17 06:19 Dose: 12.5 mcg Metoprolol Tartrate (Lopressor) 2.5 mg IVP Q6 [facility] Last Admin: 10/11/17 16:03 Dose: 2.5 mg - Labs Labs: 10/11/17 04:20 10/11/17 04:20 PT 16.0 Seconds (9.8-13.1) H 10/07/17 05:10 INR 1.4 (0.9-1.2) H 10/07/17 05:10 APTT 37.4 Seconds (25.6-37.1) H 10/03/17 04:20 - Constitutional Appears: Chronically Ill - Head Exam Head Exam: NORMAL INSPECTION - Eye Exam Eye Exam: PERRL - ENT Exam ENT Exam: Normal Exam - Neck Exam Neck Exam: Normal Inspection - Respiratory Exam Respiratory Exam: Decreased Breath Sounds (at bases), Rhonchi (scattered) Additional comments: High flow O2 - Cardiovascular Exam Cardiovascular Exam: Irregular Rhythm - GI/Abdominal Exam GI & Abdominal Exam: Soft, Normal Bowel Sounds Additional comments: NGT in place - Extremities Exam Extremities Exam: Pedal Edema - Back Exam Additional comments: Sacral stage IV decubitus wound. - Neurological Exam Additional comments: Lethargic, non verbal, generalized weakness. - Skin Skin Exam: Warm Assessment and Plan (1) Acute respiratory failure with hypoxia Status: Acute (2) Aspiration pneumonia Status: Acute (3) Altered mental status Status: Acute (4) Pleural effusion, bilateral Status: Acute (5) Chronic CHF Status: Deleted (6) Hx of seizure disorder Status: Chronic (7) A-fib Status: Chronic (8) CANDELARIA (acute kidney injury) Status: Acute (9) Hypothermia Status: Deleted (10) HTN (hypertension) Status: Chronic (11) Collapse of right lung Status: Resolved - Assessment and Plan (Free Text) Plan: had Digoxin IV today to control increased heart rate that is controlled now , continue High Flow O2 , treatment of Sacral DTI and rest of medications , Hypernatremia and CANDELARIA slowly improving ICU Time: 37 min.
--- NOTE | 2017-10-11 23:59 | CP.PCM.PN ---
Subjective - Date & Time of Evaluation Date of Evaluation: 10/11/17 Time of Evaluation: 21:00 - Subjective Subjective: Patient is doing slightly better. He might be responsive to verbal stimulation by smiling and grimacing. No seizures. Sleepy most of the time. On High Flow Oxygen.\ normal VS. Objective - Vital Signs/Intake and Output Vital Signs (last 24 hours): Temp Pulse Resp BP Pulse Ox 98.9 F 82 29 H 119/52 L 100 10/11/17 20:00 10/11/17 21:04 10/11/17 23:53 10/11/17 22:00 10/11/17 22:00 Intake and Output: 10/11/17 10/12/17 18:59 06:59 Intake Total 2850 550 Output Total 550 400 Balance 2300 150 - Medications Medications: Current Medications Acetaminophen (Tylenol 650mg/20.3ml Solution Ud) 650 mg PO Q6 PRN PRN Reason: fever Last Admin: 10/02/17 20:45 Dose: 650 mg Acetazolamide (Diamox 250 Mg Tab) 250 mg PO BID [facility] Last Admin: 10/11/17 16:01 Dose: 250 mg Amiodarone HCl (Cordarone) 200 mg PO BID [facility] Last Admin: 10/11/17 16:01 Dose: 200 mg Calcium Carbonate (Oscal) 500 mg PO BIDWM [facility] Last Admin: 10/11/17 16:01 Dose: 500 mg Dimethicone (Proshield Plus Skin Protectant) 1 applic TOP Q8 [facility] Last Admin: 10/11/17 16:06 Dose: 1 applic Ergocalciferol (Drisdol 50,000 Intl Units Cap) 1 cap PO Q7D [facility] Last Admin: 10/10/17 00:28 Dose: 1 cap Metronidazole (Flagyl 500mg/100ml Ns) 100 mls @ 100 mls/hr IVPB Q8 [facility] PRN Reason: Protocol Last Admin: 10/11/17 16:03 Dose: 100 mls/hr Dextrose (Dextrose 5% In Water 1000 Ml) 1,000 mls @ 100 mls/hr IV .Q10H [facility] Stop: 10/12/17 15:54 Last Admin: 10/11/17 15:57 Dose: 100 mls/hr Lactobacillus Acidophilus (Bacid Acidophilus) 1 cap PO BID [facility] Last Admin: 10/11/17 16:02 Dose: 1 cap Levalbuterol HCl (Xopenex) 1.25 mg INH RQ4 [facility] Last Admin: 10/11/17 23:53 Dose: 1.25 mg Levothyroxine Sodium (Synthroid) 12.5 mcg PO DAILY@0630 [facility] Last Admin: 10/11/17 06:19 Dose: 12.5 mcg Metoprolol Tartrate (Lopressor) 2.5 mg IVP Q6 [facility] Last Admin: 10/11/17 21:04 Dose: 2.5 mg - Labs Labs: 10/11/17 04:20 10/11/17 04:20 PT 16.0 Seconds (9.8-13.1) H 10/07/17 05:10 INR 1.4 (0.9-1.2) H 10/07/17 05:10 APTT 37.4 Seconds (25.6-37.1) H 10/03/17 04:20 Assessment and Plan (1) CANDELARIA (acute kidney injury) Status: Acute (2) Acute respiratory failure Status: Acute (3) Altered mental status Status: Acute (4) Pleural effusion, bilateral Status: Acute (5) Pneumonia Status: Acute (6) Seizure disorder Status: Suspected (7) Encephalopathy Status: Acute
[2017-10-12] MEDS: metroNIDAZOLE 500mg/100ml NS 100 ML IVPB SCH ×3 (00:18→16:44)
[2017-10-12] MEDS: Proshield Plus GEL TOP SCH ×3 (00:19→16:44)
[2017-10-12] MEDS: Metoprolol 1 mg/ml Inj IVP SCH ×4 (04:00→21:00)
[2017-10-12] MEDS: Levalbuterol 1.25 MG/3 ML Inhal Soln UD INH SCH ×5 (05:30→19:07)
[2017-10-12] MEDS: Levothyroxine 25 MCG TAB PO SCH (05:40)
[2017-10-12] MEDS: Lactobacillus Acidophilus 500 MU Cap PO SCH ×2 (08:48→16:41)
--- NOTE | 2017-10-12 10:01 | CP.CCUPN ---
CCU Subjective - Physician Review Subjective (Free Text): Some improvement in neuromental status from yesterdays description: opens eyes on vigorous stimulation. No further leakage from R chest catheter wound site. Remains on 50% oxygen and 30 LPM. Other vitals and I/O's reviewed. No fever spikes; fluid balance +1.5 Liters. Given Digoxin yesterday morning and HR has been better controlled with rate in 80's, in chronic A fib, occasional pacer spikes noted as well. ROS: Unobtainable due to lethargy, non verbal. No other pertinent negs or positives on 10+ system review. PMSFH: All other Nursing and physician documentation reviewed to date; no new pertinent info noted relevant to current medical problems. CXR: increase in both bibasilar fluid re-accumulation. IMPRESSION / MAJOR PROBLEMS NOW: 1. Acute Resp ( Hypoxemic) failure 2 bilat effusions, and compressive atelectasis, unclear if any superimposed pneumonitic process. 2. Encephalopathy: etiology unclear, ?? metabolic vs cryptogenic seizures vs ?? CVA?? 3. Chronic A Fib, presently with controlled VR 4. r/o Cardiomyopathy vs Diastolic Dysfx CHF- non-invasive TTE shows preserved EF. 5. Azotemia, CKD III ( Bun/Cr was 36/1.5 at the time of last hospital discharge) 6. Warfarin induced-coagulopathy PLAN: 1. CXR show re-accumulation of fluid, unclear endpoint as to mgmt of recurring effusions. Besides other multifactorial etiologies: Possibility of parapneumonic etiology from pneumonia addressed with ongoing abx therapy. Will discuss with Pulm/PMD on any utility in further mgmt by Carolynn jeter for recurrent effusions. 2. Oxygen requirememts have not worsened on HFNC. 3. Still hypernatremic, slowly resolving by 1 meq /day. 4. Very slow improvement in neuromental status, Neurlogy f/u's noted. ?? Repeat CT Brain,if feasible. CCU Objective - Vital Signs / Intake & Output Vital Signs (Last 4 hours): Vital Signs Temp Pulse Resp BP Pulse Ox 10/12/17 09:34 82 131/58 L 10/12/17 08:49 82 131/58 L 10/12/17 08:00 98.8 F 80 28 H 127/52 L 100 12/02/17 07:25 30 H 10/12/17 06:00 87 30 H 127/73 100 Intake and Output (Last 8hrs): Intake & Output 10/11/17 10/12/17 10/12/17 22:59 06:59 14:59 Intake Total 1500 1900 145 Output Total 950 400 Balance 550 1500 145 Intake: IV 300 800 100 Intake, Piggyback 100 Tube Feeding 400 400 45 Free Water Flush 700 700 Output: Urine 950 400 Urethral (Wang) 950 400 Other: # Bowel Movements 1 1 - Physical Exam Head: Positive for: Atraumatic, Normocephalic Pupils: Positive for: PERRL, Sluggish Extroacular Muscles: Positive for: EOMI Conjunctiva: Positive for: Normal. Negative for: Icteric Ears: Positive for: Normal Mouth: Positive for: Moist Mucous Membranes Pharnyx: Negative for: ERYTHEMA Neck: Positive for: Normal Range of Motion. Negative for: JVD Respiratory/Chest: Positive for: Decreased Breath Sounds, Rhonchi (upper airway rhonchi), Tachypneic. Negative for: Accessory Muscle Use, Wheezes Cardiovascular: Positive for: Irregular Rhythm, Peripheal Pulses Present, Tachycardic. Negative for: Murmurs, Normal S1, S2, Rub Abdomen: Positive for: Normal Bowel Sounds. Negative for: Tenderness, Distention, Peritoneal Signs Upper Extremity: Positive for: Edema Lower Extremity: Positive for: Edema, NORMAL PULSES. Negative for: CALF TENDERNESS, Cyanosis Neurological: Positive for: Other (withdraws to deep pain) Skin: Positive for: Warm, Dry. Negative for: Rashes Psychiatric: Positive for: Lethargic - Medications Active Medications: Active Medications Generic Name Dose Route Start Last Admin Trade Name Freq PRN Reason Stop Dose Admin Acetaminophen 650 mg 09/29/17 13:49 10/02/17 20:45 Tylenol 650mg/20.3ml Solution Ud PO 650 mg Q6 PRN Administration fever Acetazolamide 250 mg 10/09/17 17:00 10/12/17 08:48 Diamox 250 Mg Tab PO 250 mg BID [facility] Administration Amiodarone HCl 200 mg 09/29/17 17:00 10/12/17 08:49 Cordarone PO 200 mg BID [facility] Administration Calcium Carbonate 500 mg 09/26/17 08:00 10/12/17 08:48 Oscal PO 500 mg BIDWM [facility] Administration Dimethicone 1 applic 10/07/17 17:00 10/12/17 00:19 Proshield Plus Skin Protectant TOP 1 applic Q8 [facility] Administration Ergocalciferol 1 cap 09/25/17 23:45 10/10/17 00:28 Drisdol 50,000 Intl Units Cap PO 1 cap Q7D [facility] Administration Metronidazole 100 mls @ 100 mls/hr 10/07/17 17:00 10/12/17 08:50 Flagyl 500mg/100ml Ns IVPB 100 mls/hr Q8 [facility] Administration Protocol Dextrose 1,000 mls @ 100 mls/hr 10/11/17 16:00 10/12/17 05:41 Dextrose 5% In Water 1000 Ml IV 10/12/17 15:54 100 mls/hr .Q10H [facility] Administration Lactobacillus Acidophilus 1 cap 10/08/17 09:00 10/12/17 08:48 Bacid Acidophilus PO 1 cap BID [facility] Administration Levalbuterol HCl 1.25 mg 10/09/17 08:00 10/12/17 07:24 Xopenex INH 1.25 mg RQ4 [facility] Administration Levothyroxine Sodium 12.5 mcg 10/09/17 06:30 10/12/17 05:40 Synthroid PO 12.5 mcg DAILY@0630 [facility] Administration Metoprolol Tartrate 2.5 mg 09/27/17 10:00 10/12/17 09:34 Lopressor IVP 2.5 mg Q6 [facility] Administration - Patient Studies Fingerstick Blood Sugar Results: 83 Review of Systems - Review of Systems Systems not reviewed;Unavailable: Altered Mental Status
--- NOTE | 2017-10-12 12:11 | RAD ---
HISTORY: f/u effusions COMPARISON: Comparison chest 10/10/2017. . FINDINGS: This examination is limited due to patient rotation as well as overlying artifact partially obscures fine soft tissue and bone detail. Re- demonstrated is in situ NGT, the tip of which appears to lie just at the EG junction and should be advanced. . Right-sided PICC line with tip in the SVC unchanged. LUNGS: Mild pulmonary vascular congestive changes with bilateral lower lobe alveolar-type infiltrates and bilateral effusions. PLEURA: As above. No apparent pneumothorax. Heart remains enlarged. No change single lead pacemaker. OSSEOUS STRUCTURES: No significant abnormalities. VISUALIZED UPPER ABDOMEN: Normal. OTHER FINDINGS: None. IMPRESSION: Tip of the NGT appears to lie just at the level of the EG junction and should be advanced. Right sided PICC line unchanged. Mild vascular congestive changes with bilateral lower lobe alveolar-type infiltrates and bilateral effusions. . Note that the findings were discussed with Dr. Serrano of the ICU at approximately 12: 05 p.m. with written down and read back verification.
--- NOTE | 2017-10-12 13:54 | CP.PCM.PN ---
Subjective - Date & Time of Evaluation Date of Evaluation: 10/12/17 Time of Evaluation: 12:00 - Subjective Subjective: F/U Respiratory Failure lethargic ICU Time: 36 min. Objective - Vital Signs/Intake and Output Vital Signs (last 24 hours): Temp Pulse Resp BP Pulse Ox 99.1 F 82 29 H 135/64 100 10/12/17 12:00 10/12/17 13:00 10/12/17 13:00 10/12/17 13:00 10/12/17 13:00 Intake and Output: 10/12/17 10/12/17 06:59 18:59 Intake Total 2450 685 Output Total 800 Balance 1650 685 - Medications Medications: Current Medications Acetaminophen (Tylenol 650mg/20.3ml Solution Ud) 650 mg PO Q6 PRN PRN Reason: fever Last Admin: 10/02/17 20:45 Dose: 650 mg Acetazolamide (Diamox 250 Mg Tab) 250 mg PO BID [facility] Last Admin: 10/12/17 08:48 Dose: 250 mg Amiodarone HCl (Cordarone) 200 mg PO BID [facility] Last Admin: 10/12/17 08:49 Dose: 200 mg Calcium Carbonate (Oscal) 500 mg PO BIDWM [facility] Last Admin: 10/12/17 08:48 Dose: 500 mg Dimethicone (Proshield Plus Skin Protectant) 1 applic TOP Q8 [facility] Last Admin: 10/12/17 00:19 Dose: 1 applic Ergocalciferol (Drisdol 50,000 Intl Units Cap) 1 cap PO Q7D [facility] Last Admin: 10/10/17 00:28 Dose: 1 cap Metronidazole (Flagyl 500mg/100ml Ns) 100 mls @ 100 mls/hr IVPB Q8 [facility] PRN Reason: Protocol Last Admin: 10/12/17 08:50 Dose: 100 mls/hr Dextrose (Dextrose 5% In Water 1000 Ml) 1,000 mls @ 100 mls/hr IV .Q10H [facility] Stop: 10/12/17 15:54 Last Admin: 10/12/17 05:41 Dose: 100 mls/hr Lactobacillus Acidophilus (Bacid Acidophilus) 1 cap PO BID [facility] Last Admin: 10/12/17 08:48 Dose: 1 cap Lamotrigine (Lamictal) 25 mg PO BID [facility] Last Admin: 10/12/17 13:30 Dose: 25 mg Levalbuterol HCl (Xopenex) 1.25 mg INH RQ4 [facility] Last Admin: 10/12/17 11:19 Dose: 1.25 mg Levothyroxine Sodium (Synthroid) 12.5 mcg PO DAILY@0630 [facility] Last Admin: 10/12/17 05:40 Dose: 12.5 mcg Metoprolol Tartrate (Lopressor) 2.5 mg IVP Q6 [facility] Last Admin: 10/12/17 09:34 Dose: 2.5 mg - Labs Labs: 10/11/17 04:20 10/11/17 04:20 PT 16.0 Seconds (9.8-13.1) H 10/07/17 05:10 INR 1.4 (0.9-1.2) H 10/07/17 05:10 APTT 37.4 Seconds (25.6-37.1) H 10/03/17 04:20 - Constitutional Appears: Chronically Ill - Head Exam Head Exam: NORMAL INSPECTION, NORMOCEPHALIC - Eye Exam Eye Exam: PERRL - Neck Exam Neck Exam: Normal Inspection - Respiratory Exam Respiratory Exam: Decreased Breath Sounds (at bases), Rhonchi (scattered at bases) - Cardiovascular Exam Cardiovascular Exam: Irregular Rhythm - GI/Abdominal Exam GI & Abdominal Exam: Soft, Normal Bowel Sounds - Extremities Exam Extremities Exam: Pedal Edema - Back Exam Additional comments: DTI Sacral - Neurological Exam Additional comments: lethargic - Skin Skin Exam: Warm Assessment and Plan (1) Acute respiratory failure with hypoxia Status: Acute (2) Altered mental status Status: Acute (3) Pleural effusion, bilateral Status: Acute (4) Chronic CHF Status: Deleted (5) Hx of seizure disorder Status: Chronic (6) A-fib Status: Chronic (7) CANDELARIA (acute kidney injury) Status: Acute (8) HTN (hypertension) Status: Chronic - Assessment and Plan (Free Text) Plan: CXR am , monitor Pleural effusions, discussed with press secretary , possibility of Chest tubes with Pleurodesis, We both agree Patient's most likely will not consent for the procedure in case both pleural effusions will increase in am , previous attempts of Thoracentesis with Pigtail insertion failed , continue High Flow O2 and current treatment.
--- NOTE | 2017-10-12 16:55 | CP.PCM.PN ---
Subjective - Date & Time of Evaluation Date of Evaluation: 10/12/17 Time of Evaluation: 16:55 - Subjective Subjective: renal consult note please call us at [phone] if any qs no events overnight PE: VSS NAD lying in bed heent normal s1s2 present no resp distress skin normal AO times 0 PLAN: CANDELARIA/hypernatremia/CHF/hypocalcemia cr is stable sodium: i have asked the nurse to increase the free water to 400 q4 continue to monitor the lytes hypocalcemia: can can ionized calcium levels Objective - Vital Signs/Intake and Output Vital Signs (last 24 hours): Temp Pulse Resp BP Pulse Ox 98.7 F 79 25 H 127/61 100 10/12/17 16:00 10/12/17 16:43 10/12/17 16:00 10/12/17 16:43 10/12/17 16:00 Intake and Output: 10/12/17 10/12/17 06:59 18:59 Intake Total 2450 1215 Output Total 800 Balance 1650 1215 - Medications Medications: Current Medications Acetaminophen (Tylenol 650mg/20.3ml Solution Ud) 650 mg PO Q6 PRN PRN Reason: fever Last Admin: 10/02/17 20:45 Dose: 650 mg Acetazolamide (Diamox 250 Mg Tab) 250 mg PO BID [facility] Last Admin: 10/12/17 16:43 Dose: 250 mg Amiodarone HCl (Cordarone) 200 mg PO BID [facility] Last Admin: 10/12/17 16:43 Dose: 200 mg Calcium Carbonate (Oscal) 500 mg PO BIDWM [facility] Last Admin: 10/12/17 16:42 Dose: 500 mg Dimethicone (Proshield Plus Skin Protectant) 1 applic TOP Q8 [facility] Last Admin: 10/12/17 16:44 Dose: 1 applic Ergocalciferol (Drisdol 50,000 Intl Units Cap) 1 cap PO Q7D [facility] Last Admin: 10/10/17 00:28 Dose: 1 cap Metronidazole (Flagyl 500mg/100ml Ns) 100 mls @ 100 mls/hr IVPB Q8 [facility] PRN Reason: Protocol Last Admin: 10/12/17 16:44 Dose: 100 mls/hr Lactobacillus Acidophilus (Bacid Acidophilus) 1 cap PO BID [facility] Last Admin: 10/12/17 16:41 Dose: 1 cap Lamotrigine (Lamictal) 25 mg PO BID [facility] Last Admin: 10/12/17 13:30 Dose: 25 mg Levalbuterol HCl (Xopenex) 1.25 mg INH RQ4 [facility] Last Admin: 10/12/17 15:17 Dose: 1.25 mg Levothyroxine Sodium (Synthroid) 12.5 mcg PO DAILY@0630 [facility] Last Admin: 10/12/17 05:40 Dose: 12.5 mcg Metoprolol Tartrate (Lopressor) 2.5 mg IVP Q6 [facility] Last Admin: 10/12/17 09:34 Dose: 2.5 mg - Labs Labs: 10/11/17 04:20 10/11/17 04:20 PT 16.0 Seconds (9.8-13.1) H 10/07/17 05:10 INR 1.4 (0.9-1.2) H 10/07/17 05:10 APTT 37.4 Seconds (25.6-37.1) H 10/03/17 04:20
[2017-10-13] MEDS: Levalbuterol 1.25 MG/3 ML Inhal Soln UD INH SCH ×7 (00:27→23:52)
[2017-10-13] MEDS: metroNIDAZOLE 500mg/100ml NS 100 ML IVPB SCH ×3 (01:23→17:09)
[2017-10-13] MEDS: Metoprolol 1 mg/ml Inj IVP SCH ×4 (04:20→22:07)
[2017-10-13 04:56] LABS: MEAN CELL VOLUME 93.1 fl (80.0-94.0); MEAN CORPUSCULAR HGB CONC 31.2 g/dL (33.0-37.0); RBC 3.09 Mil/uL (4.40-5.90); WHITE BLOOD COUNT 7.7 K/uL (4.8-10.8)
[2017-10-13 05:25] LABS: CALCIUM 7.6 mg/dL (8.4-10.2)
--- NOTE | 2017-10-13 08:59 | CP.PCM.PN ---
Subjective - Date & Time of Evaluation Date of Evaluation: 10/13/17 Time of Evaluation: 08:55 Objective - Vital Signs/Intake and Output Vital Signs (last 24 hours): Temp Pulse Resp BP Pulse Ox 99.4 F 72 18 121/61 100 10/13/17 04:00 10/13/17 06:00 10/13/17 07:33 10/13/17 06:00 10/13/17 06:00 Intake and Output: 10/13/17 10/13/17 06:59 18:59 Intake Total 2180 Output Total 1700 Balance 480 - Medications Medications: Current Medications Acetaminophen (Tylenol 650mg/20.3ml Solution Ud) 650 mg PO Q6 PRN PRN Reason: fever Last Admin: 10/02/17 20:45 Dose: 650 mg Acetazolamide (Diamox 250 Mg Tab) 250 mg PO BID [facility] Last Admin: 10/12/17 16:43 Dose: 250 mg Amiodarone HCl (Cordarone) 200 mg PO BID [facility] Last Admin: 10/12/17 16:43 Dose: 200 mg Calcium Carbonate (Oscal) 500 mg PO BIDWM [facility] Last Admin: 10/12/17 16:42 Dose: 500 mg Dimethicone (Proshield Plus Skin Protectant) 1 applic TOP Q8 [facility] Last Admin: 10/12/17 16:44 Dose: 1 applic Ergocalciferol (Drisdol 50,000 Intl Units Cap) 1 cap PO Q7D [facility] Last Admin: 10/10/17 00:28 Dose: 1 cap Metronidazole (Flagyl 500mg/100ml Ns) 100 mls @ 100 mls/hr IVPB Q8 [facility] PRN Reason: Protocol Last Admin: 10/13/17 01:23 Dose: 100 mls/hr Lactobacillus Acidophilus (Bacid Acidophilus) 1 cap PO BID [facility] Last Admin: 10/12/17 16:41 Dose: 1 cap Lamotrigine (Lamictal) 25 mg PO BID [facility] Last Admin: 10/12/17 13:30 Dose: 25 mg Levalbuterol HCl (Xopenex) 1.25 mg INH RQ4 [facility] Last Admin: 10/13/17 07:23 Dose: 1.25 mg Levothyroxine Sodium (Synthroid) 12.5 mcg PO DAILY@0630 [facility] Last Admin: 10/12/17 05:40 Dose: 12.5 mcg Metoprolol Tartrate (Lopressor) 2.5 mg IVP Q6 [facility] Last Admin: 10/13/17 04:20 Dose: 2.5 mg - Labs Labs: 10/13/17 04:45 10/13/17 04:45 PT 16.0 Seconds (9.8-13.1) H 10/07/17 05:10 INR 1.4 (0.9-1.2) H 10/07/17 05:10 APTT 37.4 Seconds (25.6-37.1) H 10/03/17 04:20
[2017-10-13] MEDS: Levothyroxine 25 MCG TAB PO SCH (09:20)
[2017-10-13] MEDS: Lactobacillus Acidophilus 500 MU Cap PO SCH ×2 (09:20→17:10)
[2017-10-13] MEDS: Proshield Plus GEL TOP SCH ×2 (09:22→17:11)
--- NOTE | 2017-10-13 10:44 | RAD ---
HISTORY: f/u effusions COMPARISON: Comparison chest dated 10/12/2017. FINDINGS: In situ NGT, the tip of which has not been included on this film though distal aspect does lie just to the right of midline in the upper/mid abdomen. No change right-sided PICC line. LUNGS: Low lung volumes. Bilateral lower lobe atelectasis and or infiltrates and bilateral effusions. PLEURA: No significant pleural effusion identified, no pneumothorax apparent. CARDIOVASCULAR: Cardiac silhouette remains enlarged stable. No change single lead pacemaker OSSEOUS STRUCTURES: No significant abnormalities. VISUALIZED UPPER ABDOMEN: Normal. OTHER FINDINGS: None. IMPRESSION: Right-sided PICC line and NGT as above. Low lung volumes. Bilateral lower lobe atelectasis and or infiltrates and bilateral effusions.
--- NOTE | 2017-10-13 12:06 | CP.PCM.PN ---
Subjective - Date & Time of Evaluation Date of Evaluation: 10/13/17 Time of Evaluation: 08:00 - Subjective Subjective: afebrile lethargic bedbound in NAD Objective - Vital Signs/Intake and Output Vital Signs (last 24 hours): Temp Pulse Resp BP Pulse Ox 99.1 F 85 21 122/80 100 10/13/17 08:00 10/13/17 09:21 10/13/17 11:13 10/13/17 09:21 10/13/17 06:00 Intake and Output: 10/13/17 10/13/17 06:59 18:59 Intake Total 2180 Output Total 1700 Balance 480 - Medications Medications: Current Medications Acetaminophen (Tylenol 650mg/20.3ml Solution Ud) 650 mg PO Q6 PRN PRN Reason: fever Last Admin: 10/02/17 20:45 Dose: 650 mg Acetazolamide (Diamox 250 Mg Tab) 250 mg PO BID [facility] Last Admin: 10/13/17 09:20 Dose: 250 mg Amiodarone HCl (Cordarone) 200 mg PO BID [facility] Last Admin: 10/13/17 09:21 Dose: 200 mg Calcium Carbonate (Oscal) 500 mg PO BIDWM [facility] Last Admin: 10/13/17 09:20 Dose: 500 mg Dimethicone (Proshield Plus Skin Protectant) 1 applic TOP Q8 [facility] Last Admin: 10/13/17 09:22 Dose: 1 applic Ergocalciferol (Drisdol 50,000 Intl Units Cap) 1 cap PO Q7D [facility] Last Admin: 10/10/17 00:28 Dose: 1 cap Metronidazole (Flagyl 500mg/100ml Ns) 100 mls @ 100 mls/hr IVPB Q8 [facility] PRN Reason: Protocol Last Admin: 10/13/17 09:20 Dose: 100 mls/hr Lactobacillus Acidophilus (Bacid Acidophilus) 1 cap PO BID [facility] Last Admin: 10/13/17 09:20 Dose: 1 cap Lamotrigine (Lamictal) 25 mg PO BID [facility] Last Admin: 10/13/17 09:21 Dose: 25 mg Levalbuterol HCl (Xopenex) 1.25 mg INH RQ4 [facility] Last Admin: 10/13/17 11:13 Dose: 1.25 mg Levothyroxine Sodium (Synthroid) 12.5 mcg PO DAILY@0630 [facility] Last Admin: 10/13/17 09:20 Dose: 12.5 mcg Metoprolol Tartrate (Lopressor) 2.5 mg IVP Q6 [facility] Last Admin: 10/13/17 09:21 Dose: 2.5 mg - Labs Labs: 10/13/17 04:45 10/13/17 04:45 PT 16.0 Seconds (9.8-13.1) H 10/07/17 05:10 INR 1.4 (0.9-1.2) H 10/07/17 05:10 APTT 37.4 Seconds (25.6-37.1) H 10/03/17 04:20 - Constitutional Appears: Non-toxic, Confused, Cachectic, Chronically Ill - Head Exam Head Exam: NORMOCEPHALIC - Eye Exam Eye Exam: PERRL. absent: Scleral icterus - ENT Exam ENT Exam: Mucous Membranes Dry - Neck Exam Neck Exam: absent: Lymphadenopathy - Respiratory Exam Respiratory Exam: Decreased Breath Sounds, Rhonchi - Cardiovascular Exam Cardiovascular Exam: REGULAR RHYTHM, +S1, +S2 - GI/Abdominal Exam GI & Abdominal Exam: Distended, Soft. absent: Tenderness - Rectal Exam Rectal Exam: Deferred - Exam Exam: NORMAL INSPECTION - Extremities Exam Extremities Exam: Pedal Edema. absent: Calf Tenderness, Tenderness - Back Exam Back Exam: absent: CVA tenderness (L), CVA tenderness (R), paraspinal tenderness - Neurological Exam Neurological Exam: Altered - Psychiatric Exam Psychiatric exam: Depressed - Skin Skin Exam: Dry Assessment and Plan (1) CANDELARIA (acute kidney injury) Status: Acute (2) Acute respiratory failure Status: Acute (3) Altered mental status Status: Acute (4) Diastolic CHF, acute on chronic Status: Acute (5) Pleural effusion, bilateral Status: Acute (6) Pneumonia Status: Acute - Assessment and Plan (Free Text) Assessment: recurrent effusion resp failure failure to thrive CHF/COPD AMS Dr Cole to re-eval will reculture if any fever may need repeat thoracentesis
[2017-10-13] MEDS ORDERED: Chlorhexidine Gluconate 1 APPL/PKT TP ONE (12:29)
--- NOTE | 2017-10-13 14:59 | CP.PCM.PN ---
Subjective - Date & Time of Evaluation Date of Evaluation: 10/13/17 Time of Evaluation: 11:50 - Subjective Subjective: F/U Respiratory failure. Pt lethargic Objective - Vital Signs/Intake and Output Vital Signs (last 24 hours): Temp Pulse Resp BP Pulse Ox 99.6 F 89 25 H 126/66 100 10/13/17 12:00 10/13/17 12:00 10/13/17 12:00 10/13/17 12:00 10/13/17 12:00 Intake and Output: 10/13/17 10/13/17 06:59 18:59 Intake Total 2180 Output Total 1700 Balance 480 - Medications Medications: Current Medications Acetaminophen (Tylenol 650mg/20.3ml Solution Ud) 650 mg PO Q6 PRN PRN Reason: fever Last Admin: 10/02/17 20:45 Dose: 650 mg Acetazolamide (Diamox 250 Mg Tab) 250 mg PO BID [facility] Last Admin: 10/13/17 09:20 Dose: 250 mg Amiodarone HCl (Cordarone) 200 mg PO BID [facility] Last Admin: 10/13/17 09:21 Dose: 200 mg Calcium Carbonate (Oscal) 500 mg PO BIDWM [facility] Last Admin: 10/13/17 09:20 Dose: 500 mg Dimethicone (Proshield Plus Skin Protectant) 1 applic TOP Q8 [facility] Last Admin: 10/13/17 09:22 Dose: 1 applic Ergocalciferol (Drisdol 50,000 Intl Units Cap) 1 cap PO Q7D [facility] Last Admin: 10/10/17 00:28 Dose: 1 cap Metronidazole (Flagyl 500mg/100ml Ns) 100 mls @ 100 mls/hr IVPB Q8 [facility] PRN Reason: Protocol Last Admin: 10/13/17 09:20 Dose: 100 mls/hr Lactobacillus Acidophilus (Bacid Acidophilus) 1 cap PO BID [facility] Last Admin: 10/13/17 09:20 Dose: 1 cap Lamotrigine (Lamictal) 25 mg PO BID [facility] Last Admin: 10/13/17 09:21 Dose: 25 mg Levalbuterol HCl (Xopenex) 1.25 mg INH RQ4 [facility] Last Admin: 10/13/17 11:13 Dose: 1.25 mg Levothyroxine Sodium (Synthroid) 12.5 mcg PO DAILY@0630 [facility] Last Admin: 10/13/17 09:20 Dose: 12.5 mcg Metoprolol Tartrate (Lopressor) 2.5 mg IVP Q6 [facility] Last Admin: 10/13/17 09:21 Dose: 2.5 mg - Labs Labs: 10/13/17 04:45 10/13/17 04:45 PT 16.0 Seconds (9.8-13.1) H 10/07/17 05:10 INR 1.4 (0.9-1.2) H 10/07/17 05:10 APTT 37.4 Seconds (25.6-37.1) H 10/03/17 04:20 - Constitutional Appears: No Acute Distress, Chronically Ill - Head Exam Head Exam: NORMAL INSPECTION - Eye Exam Eye Exam: PERRL - ENT Exam ENT Exam: Normal Exam Additional comments: On high flow O2. - Neck Exam Neck Exam: Normal Inspection - Respiratory Exam Respiratory Exam: Decreased Breath Sounds (at bases), Rhonchi (scattered) - Cardiovascular Exam Cardiovascular Exam: Irregular Rhythm - GI/Abdominal Exam GI & Abdominal Exam: Soft, Normal Bowel Sounds Additional comments: NGT in place - Extremities Exam Extremities Exam: Pedal Edema - Back Exam Additional comments: DTI sacral - Neurological Exam Additional comments: Lethargic, non verbal, generalized weakness. - Skin Skin Exam: Warm Assessment and Plan (1) Acute respiratory failure with hypoxia Status: Acute (2) Altered mental status Status: Acute (3) Pleural effusion, bilateral Status: Acute (4) Chronic CHF Status: Deleted (5) Hx of seizure disorder Status: Chronic (6) A-fib Status: Chronic (7) CANDELARIA (acute kidney injury) Status: Acute (8) HTN (hypertension) Status: Deleted - Assessment and Plan (Free Text) Plan: Continue high flow O2, CXR shows b/l effusion/infiltrate, f/u CT Chest, CT Head , Dietary consult for NGT feeding, Pt , treatment of loose BM , treatment of Sacral DTI , Na normal , BUN ,Creat improved. ICU Time: 40 min.
[2017-10-13 18:19] LABS: SQUAMOUS EPITHIAL < 1 /hpf (0-5); URINE BILIRUBIN NEGATIVE (NEGATIVE); URINE BLOOD SMALL (NEGATIVE); URINE CLARITY CLEAR (Clear); URINE COLOR YELLOW (YELLOW); URINE GLUCOSE (UA) NEG (Normal); URINE LEUKOCYTE ESTERASE TRACE Leu/uL (Negative); URINE PROTEIN NEGATIVE (NEGATIVE); URINE UROBILINOGEN 0.2-1.0 mg/dL (0.2-1.0)
--- NOTE | 2017-10-13 20:51 | CP.PCM.PN ---
Subjective - Date & Time of Evaluation Date of Evaluation: 10/13/17 Time of Evaluation: 19:00 - Subjective Subjective: He is still in the ICU with a high flow O2. He is having better parameter of BUN, Creatinine. Creatinine went down to normal values at 1.4 since few days, while BUN is moderately high at 33, which is much lower than before. Patient is not doing well clinically, but is still lethargic and is not responding to verbal and tactile stimulation. He is weak with no spontaneous movements. Objective - Vital Signs/Intake and Output Vital Signs (last 24 hours): Temp Pulse Resp BP Pulse Ox 97.7 F 77 22 135/59 L 100 10/13/17 18:00 10/13/17 18:00 10/13/17 18:58 10/13/17 18:00 10/13/17 18:00 Intake and Output: 10/13/17 10/14/17 18:59 06:59 Intake Total 2000 Output Total 1400 Balance 600 - Medications Medications: Current Medications Acetaminophen (Tylenol 650mg/20.3ml Solution Ud) 650 mg PO Q6 PRN PRN Reason: fever Last Admin: 10/02/17 20:45 Dose: 650 mg Acetazolamide (Diamox 250 Mg Tab) 250 mg PO BID [facility] Last Admin: 10/13/17 17:09 Dose: 250 mg Amiodarone HCl (Cordarone) 200 mg PO BID [facility] Last Admin: 10/13/17 17:09 Dose: 200 mg Calcium Carbonate (Oscal) 500 mg PO BIDWM [facility] Last Admin: 10/13/17 17:09 Dose: 500 mg Dimethicone (Proshield Plus Skin Protectant) 1 applic TOP Q8 [facility] Last Admin: 10/13/17 17:11 Dose: 1 applic Ergocalciferol (Drisdol 50,000 Intl Units Cap) 1 cap PO Q7D [facility] Last Admin: 10/10/17 00:28 Dose: 1 cap Lactobacillus Acidophilus (Bacid Acidophilus) 1 cap PO BID [facility] Last Admin: 10/13/17 17:10 Dose: 1 cap Lamotrigine (Lamictal) 25 mg PO BID [facility] Last Admin: 10/13/17 17:09 Dose: 25 mg Levalbuterol HCl (Xopenex) 1.25 mg INH RQ4 [facility] Last Admin: 10/13/17 19:02 Dose: 1.25 mg Levothyroxine Sodium (Synthroid) 12.5 mcg PO DAILY@0630 [facility] Last Admin: 10/13/17 09:20 Dose: 12.5 mcg Metoprolol Tartrate (Lopressor) 2.5 mg IVP Q6 [facility] Last Admin: 10/13/17 17:10 Dose: 2.5 mg - Labs Labs: 10/13/17 04:45 10/13/17 04:45 PT 16.0 Seconds (9.8-13.1) H 10/07/17 05:10 INR 1.4 (0.9-1.2) H 10/07/17 05:10 APTT 37.4 Seconds (25.6-37.1) H 10/03/17 04:20 Assessment and Plan (1) CANDELARIA (acute kidney injury) Status: Acute (2) Acute respiratory failure Status: Acute (3) Altered mental status Status: Acute (4) Pleural effusion, bilateral Status: Acute (5) Pneumonia Status: Acute (6) Seizure disorder Status: Suspected (7) Encephalopathy Status: Acute
[2017-10-14] MEDS: Proshield Plus GEL TOP SCH ×3 (01:01→17:55)
[2017-10-14] MEDS: metroNIDAZOLE 500mg/100ml NS 100 ML IVPB SCH ×3 (01:02→17:54)
[2017-10-14] MEDS: Metoprolol 1 mg/ml Inj IVP SCH ×4 (03:14→21:31)
[2017-10-14] MEDS: Levalbuterol 1.25 MG/3 ML Inhal Soln UD INH SCH ×6 (04:23→23:48)
[2017-10-14 05:35] LABS: BASO # 0.1 K/uL (0.0-0.2); BASO % 0.7 % (0.0-2.0); EOS # 0.1 K/uL (0.0-0.7); EOS % 1.2 % (0.0-4.0); HEMOGLOBIN 9.5 g/dL (12.0-18.0); LYMPH # 0.8 K/uL (1.0-4.3); LYMPH % 8.5 % (20.0-40.0); MEAN CELL VOLUME 94.7 fl (80.0-94.0); MEAN CORPUSCULAR HEMOGLOBIN 28.6 pg (27.0-31.0); MEAN CORPUSCULAR HGB CONC 30.2 g/dL (33.0-37.0); MEAN PLATELET VOLUME 8.9 fl (7.2-11.7); MONO # 0.6 K/uL (0.0-0.8); MONO % 7.2 % (0.0-10.0); NEUT # 7.4 K/uL (1.8-7.0); NEUT % 82.4 % (50.0-75.0); PLATELET COUNT 469 K/uL (130-400); RBC 3.32 Mil/uL (4.40-5.90); RED CELL DISTRIBUTION WIDTH 18.1 % (11.5-14.5)
[2017-10-14 05:57] LABS: ALB/GLOB RATIO 0.6 (1.0-2.1); ALBUMIN 2.7 g/dL (3.5-5.0); ALT/SGPT 25 U/L (21-72); AST/SGOT 26 U/L (17-59); BLOOD UREA NITROGEN 35 mg/dl (9-20); CALCIUM 7.7 mg/dL (8.4-10.2); GFR AFRICAN-AMERICAN 55; GFR NON-AFRICAN AMERICAN 45
--- NOTE | 2017-10-14 08:35 | PN ---
DATE: 10/13/2017 CRITICAL CARE PROGRESS NOTE LOCATION: The patient in ICU, bed 431. SUBJECTIVE: The patient is seen and evaluated at the bedside. Past medical, surgical, social history reviewed. Overnight events noted. Remains normotensive. Afebrile. On high-flow nasal oxygen. Saturating 100%. PHYSICAL EXAMINATION: VITAL SIGNS: Temperature 99, heart rate 87, respiratory rate 22 to 26, blood pressure 128/93. Intake 4595, output 2400, positive balance 2195. Weight 172 pounds. HEAD, EYES, EARS, NOSE AND THROAT: Pupils reactive. Conjunctivae pink. Sclerae anicteric. Oral mucosa dry. CHEST: Bilateral breath sounds. Clear to auscultation anteriorly and laterally. HEART: Rhythm irregular. ABDOMEN: Bowel sounds present. Soft. No distention. EXTREMITIES: Dependent edema. NEUROLOGIC: Lethargic. Able to open eyes. Responds calling by his , but nonverbal, noninteractive. LABORATORY DATA: WBC 7.7, hemoglobin 9, hematocrit 28.8, platelet count 423. PT 16, INR 1.4. ABG: PH 7.4, pCO2 of 55, pO2 of 107, on high flow 50%. SMA-7: Sodium 143, potassium 4.3, chloride 112, CO2 28, blood urea nitrogen 32, creatinine 1.4, random glucose 142, calcium 7.6. Urinalysis: Urine creatinine 71. Pleural fluid: Wbc 694, rbc 21,032. Acetylcholine receptor binding antibody less than 0.30. C. diff positive. CURRENT MEDICATIONS: Include Tylenol 650 q. 6 p.r.n., Diamox 250 mg p.o. b.i.d., amiodarone 200 mg p.o. twice daily, calcium carbonate 500 mg p.o. b.i.d., dimethicone one application topically q. 8 hours, ergocalciferol 1 capsule p.o. every 7 days, Lactobacillus 1 capsule twice daily, Lamictal 25 mg p.o. twice daily, Xopenex 1.25 mg q. 4, Synthroid 12.5 mg p.o. daily, Lopressor 2.5 mg q. 6 hours, Flagyl 500 mg q. 8 hours. IMPRESSION: 1. Neurology: History of cerebrovascular accident without residual weakness. History of seizure disorder. Currently on Lamictal 25 mg twice daily. Admitted with myoclonic jerks, now remains seizure free. Appreciate Neurology input. 2. Cardiac: History of atrial fibrillation, chronic, rate is controlled, on amiodarone, metoprolol IV q. 12. Diastolic heart failure. 3. Pulmonary: Hypoxic respiratory failure requiring high-flow oxygen. Bilateral pleural effusion, status post bilateral thoracentesis. Right pigtail catheter removed with reaccumulation of pleural effusion. 4. Renal: Acute kidney injury on chronic kidney disease stage III. Hypernatremia due to hydration, improved. 5. Endocrine: Maintain blood sugar less than 180. Continue probiotic. 6. Deep venous thrombosis, gastrointestinal prophylaxis. Clive Buckner MD
[2017-10-14] MEDS: Acetaminophen 650mg/20.3ml solution UD PO PRN (09:00)
[2017-10-14] MEDS: Lactobacillus Acidophilus 500 MU Cap PO SCH (09:06)
--- NOTE | 2017-10-14 09:07 | CP.PCM.PN ---
Subjective - Date & Time of Evaluation Date of Evaluation: 10/14/17 Time of Evaluation: 09:04 - Subjective Subjective: Patient and bed And the at the bedside The stated that he responds some time. Vital sign noted with low-grade fever Reviewed lab. Objective - Vital Signs/Intake and Output Vital Signs (last 24 hours): Temp Pulse Resp BP Pulse Ox 100.5 F H 120 H 31 H 149/61 100 10/14/17 08:00 10/14/17 08:00 10/14/17 08:48 10/14/17 08:00 10/14/17 08:00 Intake and Output: 10/14/17 10/14/17 06:59 18:59 Intake Total 400 Output Total 1000 Balance -600 - Medications Medications: Current Medications Acetaminophen (Tylenol 650mg/20.3ml Solution Ud) 650 mg PO Q6 PRN PRN Reason: fever Last Admin: 10/02/17 20:45 Dose: 650 mg Acetazolamide (Diamox 250 Mg Tab) 250 mg PO BID [facility] Last Admin: 10/13/17 17:09 Dose: 250 mg Amiodarone HCl (Cordarone) 200 mg PO BID [facility] Last Admin: 10/13/17 17:09 Dose: 200 mg Calcium Carbonate (Oscal) 500 mg PO BIDWM [facility] Last Admin: 10/13/17 17:09 Dose: 500 mg Dimethicone (Proshield Plus Skin Protectant) 1 applic TOP Q8 [facility] Last Admin: 10/14/17 01:01 Dose: 1 applic Ergocalciferol (Drisdol 50,000 Intl Units Cap) 1 cap PO Q7D [facility] Last Admin: 10/10/17 00:28 Dose: 1 cap Metronidazole (Flagyl 500mg/100ml Ns) 100 mls @ 100 mls/hr IVPB Q8 [facility] PRN Reason: Protocol Last Admin: 10/14/17 01:02 Dose: 100 mls/hr Lactobacillus Acidophilus (Bacid Acidophilus) 1 cap PO BID [facility] Last Admin: 10/13/17 17:10 Dose: 1 cap Lamotrigine (Lamictal) 25 mg PO BID [facility] Last Admin: 10/13/17 17:09 Dose: 25 mg Levalbuterol HCl (Xopenex) 1.25 mg INH RQ4 [facility] Last Admin: 10/14/17 08:48 Dose: 1.25 mg Levothyroxine Sodium (Synthroid) 12.5 mcg PO DAILY@0630 [facility] Last Admin: 10/13/17 09:20 Dose: 12.5 mcg Metoprolol Tartrate (Lopressor) 2.5 mg IVP Q6 [facility] Last Admin: 10/14/17 03:14 Dose: 2.5 mg - Labs Labs: 10/14/17 04:30 10/14/17 04:30 PT 16.0 Seconds (9.8-13.1) H 10/07/17 05:10 INR 1.4 (0.9-1.2) H 10/07/17 05:10 APTT 37.4 Seconds (25.6-37.1) H 10/03/17 04:20 - Constitutional Appears: No Acute Distress - ENT Exam ENT Exam: Mucous Membranes Moist - Respiratory Exam Respiratory Exam: absent: Chest Wall Tenderness - Cardiovascular Exam Cardiovascular Exam: absent: JVD, Rubs - GI/Abdominal Exam GI & Abdominal Exam: Soft, Normal Bowel Sounds - Extremities Exam Extremities Exam: absent: Calf Tenderness - Back Exam Back Exam: absent: CVA tenderness (L), CVA tenderness (R) - Neurological Exam Neurological Exam: Altered - Psychiatric Exam Psychiatric exam: Flat Affect Assessment and Plan (1) CANDELARIA (acute kidney injury) Assessment & Plan: Serum creatinines remained stable in the range of 1.4-1.5. Probably that's his baseline consistent with CK D stage III. Acute kidney injury has improved. Chest x-ray noted with bilateral pleural effusion and bilateral atelectasis or infiltrate patient also has a fever as better and then service and pulmonary to decide about antibiotics and management. Hypernatremia, corrected pleased DC D5W completely. The at the bedside I discussed with an answer all her questions Resume lasix PO for the next couple days and monitor kidney and electrolyte. Status: Acute (2) Altered mental status Status: Acute (3) Diastolic CHF, acute on chronic Status: Acute (4) Hypernatremia Status: Acute
[2017-10-14] MEDS: Levothyroxine 25 MCG TAB PO SCH (09:09)
[2017-10-14 10:49] LABS: BASOPHIL 1 % (0-2); EOSINOPHIL 4 % (0-7); LYMPHOCYTE 9 % (20-50); MONOCYTE 8 % (0-10); NEUTROPHIL 78 % (42-75); PLATELET ESTIMATE INCREASED (NORMAL); TOTAL CELLS COUNTED 100
[2017-10-14 10:50] LABS: ANISOCYTOSIS SLIGHT; HYPOCHROMIC SLIGHT; OVALOCYTES SLIGHT
[2017-10-14 10:51] LABS: LARGE PLATELETS PRESENT; TOXIC GRANULATION PRESENT
[2017-10-14 12:50] LABS: INR 1.5 (0.9-1.2); PARTIAL THROMBOPLASTIN TIME 32.7 Seconds (25.6-37.1); PROTHROMBIN TIME 16.7 Seconds (9.8-13.1)
[2017-10-14 12:56] LABS: ABG ALLEN TEST YES; ARTERIAL BLOOD GAS HCO3 22.3 mmol/L (21-28); ARTERIAL BLOOD GAS HEMOGLOBIN 10.3 g/dL (11.7-17.4); ARTERIAL BLOOD GAS O2 CONTENT 13.2 ML/dL (15-23); ARTERIAL BLOOD GAS O2 SAT 94.4 % (95-98); ARTERIAL BLOOD GAS PCO2 84 mm/Hg (35-45); ARTERIAL BLOOD GAS PH 7.12 (7.35-7.45); ARTERIAL BLOOD GAS PO2 66 mm/Hg (80-100); ARTERIAL BLOOD GAS TCO2 29.9 mmol/L (22-28)
[2017-10-14] MEDS ORDERED: Lidocaine 1% Inj (20ml) ONE (13:38)
--- NOTE | 2017-10-14 14:27 | PCM.SURG1 ---
Surgeon's Initial Post Op Note - Surgeon's Notes Surgeon: Clifford Friedman MD Tube Teller: NONE Type of Anesthesia: Local Pre-Operative Diagnosis: Left pleural effusion Operative Findings: US showed a large left effusion Post-Operative Diagnosis: Left pleural effusion Operation Performed: US guided left thoracentesis. Specimen/Specimens Removed: 1450 cc of yellow fluid Estimated Blood Loss: EBL {In ML}: 0 Blood Products Given: N/A Drains Used: No Drains Post-Op Condition: Poor Date of Surgery/Procedure: 10/14/17 Time of Surgery/Procedure: 14:20
--- NOTE | 2017-10-14 16:17 | CP.PCM.PN ---
Subjective - Date & Time of Evaluation Date of Evaluation: 10/14/17 Time of Evaluation: 09:30 - Subjective Subjective: F/U Respiratory failure. Pt lethargic, increased respiratory rate. Objective - Vital Signs/Intake and Output Vital Signs (last 24 hours): Temp Pulse Resp BP Pulse Ox 98.6 F 100 H 28 H 83/42 L 98 10/14/17 12:00 10/14/17 14:30 10/14/17 15:58 10/14/17 14:30 10/14/17 14:30 Intake and Output: 10/14/17 10/14/17 06:59 18:59 Intake Total 400 300 Output Total 1000 Balance -600 300 - Medications Medications: Current Medications Acetazolamide (Diamox 250 Mg Tab) 250 mg PO BID [facility] Last Admin: 10/14/17 09:07 Dose: 250 mg Amiodarone HCl (Cordarone) 200 mg PO BID [facility] Last Admin: 10/14/17 09:09 Dose: 200 mg Calcium Carbonate (Oscal) 500 mg PO BIDWM [facility]CLUD[facility] Last Admin: 10/14/17 09:07 Dose: 500 mg Dimethicone (Proshield Plus Skin Protectant) 1 applic TOP Q8 [facility] Last Admin: 10/14/17 09:08 Dose: 1 applic Ergocalciferol (Drisdol 50,000 Intl Units Cap) 1 cap PO Q7D [facility] Last Admin: 10/10/17 00:28 Dose: 1 cap Furosemide (Lasix) 40 mg PO DAILY [facility] Last Admin: 10/14/17 10:27 Dose: 40 mg Metronidazole (Flagyl 500mg/100ml Ns) 100 mls @ 100 mls/hr IVPB Q8 [facility] PRN Reason: Protocol Last Admin: 10/14/17 09:07 Dose: 100 mls/hr Lactobacillus Acidophilus (Bacid Acidophilus) 1 cap PO BID [facility] Last Admin: 10/14/17 09:06 Dose: 1 cap Lamotrigine (Lamictal) 25 mg PO BID [facility] Last Admin: 10/14/17 09:07 Dose: 25 mg Levalbuterol HCl (Xopenex) 1.25 mg INH RQ4 [facility] Last Admin: 10/14/17 15:30 Dose: 1.25 mg Levothyroxine Sodium (Synthroid) 12.5 mcg PO DAILY@0630 [facility] Last Admin: 10/14/17 09:09 Dose: 12.5 mcg Metoprolol Tartrate (Lopressor) 2.5 mg IVP Q6 [facility] Last Admin: 10/14/17 09:08 Dose: 2.5 mg - Labs Labs: 10/14/17 04:30 10/14/17 04:30 PT 16.7 Seconds (9.8-13.1) H 10/14/17 12:26 INR 1.5 (0.9-1.2) H 10/14/17 12:26 APTT 32.7 Seconds (25.6-37.1) 10/14/17 12:26 - Constitutional Appears: Chronically Ill - Head Exam Head Exam: NORMAL INSPECTION - Eye Exam Eye Exam: PERRL - ENT Exam ENT Exam: Normal Exam Additional comments: On high flow O2 - Neck Exam Neck Exam: Normal Inspection - Respiratory Exam Respiratory Exam: Decreased Breath Sounds (at bases), Rhonchi (scattered) - Cardiovascular Exam Cardiovascular Exam: Irregular Rhythm - GI/Abdominal Exam GI & Abdominal Exam: Soft, Normal Bowel Sounds Additional comments: NGT in place - Extremities Exam Extremities Exam: Normal Inspection - Back Exam Additional comments: DTI Sacrum - Skin Skin Exam: Warm Assessment and Plan (1) Acute respiratory failure with hypoxia Status: Acute (2) Altered mental status Status: Acute (3) Pleural effusion, bilateral Status: Acute (4) Chronic CHF Status: Deleted (5) Hx of seizure disorder Status: Chronic (6) A-fib Status: Chronic (7) CANDELARIA (acute kidney injury) Status: Acute (8) HTN (hypertension) Status: Chronic - Assessment and Plan (Free Text) Plan: IR thoracentesis for b/l pleural effusion, f/u CT head and chest. TMAx 100.5 ICU Time: 40 min.
--- NOTE | 2017-10-14 18:08 | CT ---
PROCEDURE: CT HEAD WITHOUT CONTRAST. HISTORY: lethargy COMPARISON: 09/23/2017 TECHNIQUE: Axial computed tomography images were obtained through the head/brain without intravenous contrast. Radiation dose: Total exam DLP = mGy-cm. This CT exam was performed using one or more of the following dose reduction techniques: Automated exposure control, adjustment of the mA and/or kV according to patient size, and/or use of iterative reconstruction technique. FINDINGS: HEMORRHAGE: No intracranial hemorrhage. BRAIN: No mass effect or edema. Encephalomalacia change, evidence of old infarcts right parietal frontal region. Stable atrophy and periventricular small vessel disease. Cerebellar atrophy identified. VENTRICLES: Unremarkable. No hydrocephalus. CALVARIUM: Unremarkable. PARANASAL SINUSES: Unremarkable as visualized. No significant inflammatory changes. MASTOID AIR CELLS: Unremarkable as visualized. No inflammatory changes. OTHER FINDINGS: Incompletely visualized endotracheal tube. IMPRESSION: No acute intracranial abnormalities. No significant findings to account for the clinical presentation. No significant interval change compared to the prior examination(s). Additional benign and/or incidental findings described above.
--- NOTE | 2017-10-14 18:14 | CT ---
PROCEDURE: CT Chest without contrast HISTORY: Pleural effusions, lung infiltrates ,respiratory COMPARISON: 09/30/2017 CT thorax Relevant interventional procedure(s): October 14, 2017. Left Thoracentesis TECHNIQUE: Contiguous axial images were obtained through the chest without intravenous contrast enhancement. Sagittal and coronal reconstructions were performed. Radiation dose (DLP): 645.50 mGy-cm. This CT exam was performed using one or more of the following dose reduction techniques: Automated exposure control, adjustment of the mA and/or kV according to patient size, and/or use of iterative reconstruction technique. FINDINGS: LUNGS: Compressive atelectasis related to right pleural effusion. This primarily affects right lower lobe and to lesser extent right upper lobe. Atelectatic, consolidative changes at the left base improved compared to the prior study. MEDIASTINUM: Unremarkable thoracic aorta. No aneurysm. Normal sized heart. Main pulmonary artery unremarkable. No vascular congestion. No lymphadenopathy. PLEURA: Persistent and partially loculated large right pleural effusion. Small left pleural effusion. Qualitatively the left pleural effusion appears to be less than that seen previously. Commensurate improved aeration left lower lobe. BONES: No fracture. No destructive lesion. UPPER ABDOMEN: Grossly unremarkable. OTHER FINDINGS: Thyroid nodule, incompletely characterized inferior aspect of the right lobe of the thyroid measuring 2.5 cm. Nasogastric tube courses through the esophagus into a decompressed stomach. IMPRESSION: No adverse findings following left thoracentesis. Diminution in left pleural effusion with improved aeration of the left lower lobe. Persistent large, complex and partially loculated right pleural effusion with compressive atelectasis primarily affecting right lower lobe and to lesser extent right upper lobe.
[2017-10-14 18:33] LABS: ABG ALLEN TEST YES; ARTERIAL BLOOD GAS HCO3 24.1 mmol/L (21-28); ARTERIAL BLOOD GAS HEMOGLOBIN 9.2 g/dL (11.7-17.4); ARTERIAL BLOOD GAS O2 CAPACITY 12.6 mL/dL (16-24); ARTERIAL BLOOD GAS O2 SAT 95.6 % (95-98); ARTERIAL BLOOD GAS PCO2 65 mm/Hg (35-45); ARTERIAL BLOOD GAS PH 7.23 (7.35-7.45); ARTERIAL BLOOD GAS PO2 56 mm/Hg (80-100); ARTERIAL BLOOD GAS TCO2 29.2 mmol/L (22-28)
--- NOTE | 2017-10-15 00:56 | CP.PCM.PN ---
Subjective - Date & Time of Evaluation Date of Evaluation: 10/14/17 Time of Evaluation: 21:45 - Subjective Subjective: He had a new left pleural accumulation of effusion and 1450 CC of pleural effusion were removed by Left Thoracocentesis. He is poorly responsive. He spiked a low grade fever 100.5 for several hours in the Morning. Tachycardic 120 to 100 Respiratory Rate 34 [address] Brain of 10/14/2017: No acute intracranial abnormalities. No significant findings to account for the clinical presentation. No significant interval change compared to the prior examination(s). Additional benign and/or incidental findings described above. IMPRESSION of CT Chest 10/13/2017: No adverse findings following left thoracentesis. Diminution in left pleural effusion with improved aeration of the left lower lobe. Persistent large, complex and partially loculated right pleural effusion with compressive atelectasis primarily affecting right lower lobe and to lesser extent right upper lobe. Objective - Vital Signs/Intake and Output Vital Signs (last 24 hours): Temp Pulse Resp BP Pulse Ox 97.6 F 73 23 121/65 100 10/14/17 20:00 10/14/17 22:00 10/14/17 23:50 10/14/17 22:00 10/14/17 22:00 Intake and Output: 10/14/17 10/15/17 18:59 06:59 Intake Total 400 200 Balance 400 200 - Medications Medications: Current Medications Acetazolamide (Diamox 250 Mg Tab) 250 mg PO BID [facility] Last Admin: 10/14/17 17:52 Dose: 250 mg Calcium Carbonate (Oscal) 500 mg PO BIDWM [facility] Last Admin: 10/14/17 17:52 Dose: 500 mg Dimethicone (Proshield Plus Skin Protectant) 1 applic TOP Q8 [facility] Last Admin: 10/14/17 17:55 Dose: 1 applic Ergocalciferol (Drisdol 50,000 Intl Units Cap) 1 cap PO Q7D [facility] Last Admin: 10/10/17 00:28 Dose: 1 cap Furosemide (Lasix) 40 mg PO DAILY [facility] Last Admin: 10/14/17 10:27 Dose: 40 mg Metronidazole (Flagyl 500mg/100ml Ns) 100 mls @ 100 mls/hr IVPB Q8 [facility] PRN Reason: Protocol Last Admin: 10/14/17 17:54 Dose: 100 mls/hr Lactobacillus Acidophilus (Bacid Acidophilus) 1 cap PO BID [facility] Last Admin: 10/14/17 09:06 Dose: 1 cap Lamotrigine (Lamictal) 25 mg PO BID [facility] Last Admin: 10/14/17 17:53 Dose: 25 mg Levalbuterol HCl (Xopenex) 1.25 mg INH RQ4 [facility] Last Admin: 10/14/17 23:48 Dose: 1.25 mg Levothyroxine Sodium (Synthroid) 12.5 mcg PO DAILY@0630 [facility] Last Admin: 10/14/17 09:09 Dose: 12.5 mcg Metoprolol Tartrate (Lopressor) 2.5 mg IVP Q6 [facility] Last Admin: 10/14/17 21:31 Dose: 2.5 mg - Labs Labs: 10/14/17 04:30 10/14/17 04:30 PT 16.7 Seconds (9.8-13.1) H 10/14/17 12:26 INR 1.5 (0.9-1.2) H 10/14/17 12:26 APTT 32.7 Seconds (25.6-37.1) 10/14/17 12:26 Assessment and Plan (1) CANDELARIA (acute kidney injury) Status: Acute (2) Acute respiratory failure Status: Acute (3) Altered mental status Status: Acute (4) Pleural effusion, bilateral Status: Acute (5) Pneumonia Status: Acute (6) Seizure disorder Status: Suspected (7) Encephalopathy Status: Acute
[2017-10-15] MEDS: Proshield Plus GEL TOP SCH ×4 (01:35→16:37)
[2017-10-15] MEDS: metroNIDAZOLE 500mg/100ml NS 100 ML IVPB SCH ×3 (01:36→16:35)
--- NOTE | 2017-10-15 03:42 | PN ---
DATE: 10/14/2017 CRITICAL CARE PROGRESS NOTE LOCATION: ICU, bed 431. TIME SPENT: 35 minutes. SUBJECTIVE: The patient is seen and evaluated at the bed side. Past medical, surgical, and social history are reviewed. Events overnight are noted. On high-flow nasal oxygen, saturating 100%. Remained normotensive, low-grade temperature. No bowel movement for the last two days. This morning, remains lethargic but arousable. Had ultrasound-guided left thoracentesis, drained 1450 mL straw-colored fluid. Breathing improved. More arousable. Awaiting for CT of head and CT of the chest. OBJECTIVE: Vital Signs: Temperature 98.6, heart rate 100 regular, blood pressure 146/73, respiratory rate 28, oxygen saturation 98% on high-flow oxygen. Intake 2400, output 2400. Now 1450 mL pleural fluid drained. Head, Eyes, Ears, Nose and Throat: Pupils are 3-4 mm, reactive. No nystagmus. Contracted neck. Chest: Bilateral breath sounds, clear to auscultation anteriorly and laterally. Reduced breath sounds. Prolonged expiration. Heart: Rhythm irregular. Abdomen: Bowel sounds present. Soft. No distention. Extremities: Dependent edema. Neurologic: Lethargic. Opens eyes on calling his name. Remains nonverbal, not interactive. CURRENT MEDICATIONS: Acetazolamide 250 mg p.o. b.i.d., calcium 500 mg p.o. b.i.d., Proshield Plus skin protectant one application topically q.8h., ergocalciferol 1 capsule p.o. q.i.d., furosemide 40 mg p.o. daily, lactobacillus 1 capsule p.o. twice daily, Lamictal 25 mg p.o. b.i.d., Xopenex 1.25 mg q. 4, Synthroid 12.5 mcg p.o. daily, Lopressor 2.5 mg q.6, Flagyl 500 mg IV q.8h. LABORATORY DATA: WBC 9, hemoglobin 9.5, hematocrit 31.5, platelet count of 469, neutrophils 82, lymphocytes 8.5, monocytes 7.2. PT is 16.7, INR 1.5, PTT 32.7. ABG, pH 7.12, pCO2 of 84, pO2 of 66, on high-flow nasal oxygen. SMA-7; sodium 144, potassium 4.8, chloride of 112, CO2 of 28, blood urea nitrogen 35, creatinine 1.5, random glucose 138, calcium 7.7, total bilirubin less than 0.1, AST 26, ALT 25, alkaline phosphatase 104, total protein 6.8, albumin 2.7. Urinalysis negative. Digoxin level 1.2. Vancomycin trough level 14.8, acetylcholine receptor antibody negative. Serology; C. Diff positive. IMPRESSION: 1. Pulmonary: Hypercapnic hypoxic respiratory failure, on high-flow nasal oxygen. Worsening CO2 retention noted. May require noninvasive versus invasive ventilation.. Status post left thoracentesis, drained 1450 mL of pleural fluid with improved breathing pattern,less laboured now.. We will closely monitor the respiratory status with a repeat ABG. If the CO2 does not improve, we will attempt on BiPAP. 2. Cardiac: A. History of chronic atrial fibrillation, rate controlled. Currently on amiodarone, metoprolol. B. Diastolic heart failure, on Lasix. 3. Neurology: A. History of cerebrovascular accident without residual weakness. B. Seizure disorder, controlled on Lamictal. Seen by neurology. Repeat EEG pending. 4. Renal: Acute kidney injury on chronic kidney disease with improved BUN and creatinine. 5. Hematology. A. Anemia of chronic disease. No obvious overt GI bleeding noted. B. Hypoalbuminemia secondary to malnutrition. C. Dependent edema secondary to right ventricular heart failure. PLAN: 1. The patient is scheduled for a repeat CT of the chest to assess the pneumonia/pleural effusion/atelectasis. 2. Support with the BiPAP as needed. 3. CT of the head to assess any acute IMMIGRATION JUDGE event. 4. Prognosis remains guarded. Water flush of 300 mL q.8h. Clive Buckner MD cc: MTDD
[2017-10-15] MEDS: Metoprolol 1 mg/ml Inj IVP SCH ×5 (04:22→23:29)
[2017-10-15] MEDS: Levalbuterol 1.25 MG/3 ML Inhal Soln UD INH SCH ×6 (05:13→23:53)
[2017-10-15 05:18] LABS: ABG ALLEN TEST YES; ARTERIAL BLOOD GAS HEMOGLOBIN 9.3 g/dL (11.7-17.4); ARTERIAL BLOOD GAS O2 SAT 100.3 % (95-98); ARTERIAL BLOOD GAS PCO2 62 mm/Hg (35-45); ARTERIAL BLOOD GAS PH 7.26 (7.35-7.45); ARTERIAL BLOOD GAS PO2 155 mm/Hg (80-100); ARTERIAL BLOOD GAS TCO2 29.7 mmol/L (22-28)
[2017-10-15 05:30] LABS: HEMOGLOBIN 8.9 g/dL (12.0-18.0); MEAN CELL VOLUME 95.1 fl (80.0-94.0); MEAN CORPUSCULAR HEMOGLOBIN 28.8 pg (27.0-31.0); MEAN CORPUSCULAR HGB CONC 30.3 g/dL (33.0-37.0); RBC 3.1 Mil/uL (4.40-5.90); RED CELL DISTRIBUTION WIDTH 18.3 % (11.5-14.5); WHITE BLOOD COUNT 8.8 K/uL (4.8-10.8)
[2017-10-15 05:41] LABS: CALCIUM 7.5 mg/dL (8.4-10.2)
[2017-10-15] MEDS: Levothyroxine 25 MCG TAB PO SCH (07:53)
[2017-10-15] MEDS: Lactobacillus Acidophilus 500 MU Cap PO SCH ×2 (08:45→16:36)
--- NOTE | 2017-10-15 13:57 | PCM.EEG ---
Electroencephalogram Report - Electroencephalogram Report Procedure Date: 10/14/17 Interpretation: Indication: Encephalopathy, suspected seizure. Medications were reviewed. Technical: This is a digitally recorded electroencephalogram. The international 10-20 electrode placement system is used for scalp electrode placement. Eighteen channels of scalp EEG are recorded Another channel was used for for ECG. The data are stored digitally and reviewed in reformatted montages for optimal display. Background: 9 to 10 hertz alpha activity was seen. Maximal over the posterior head region. These activities are symmetric on both sides. Focal abnormality: Intermittent focal slowing was seen. Periodic lateralized discharge was seen. This is seen over the Right hemisphere. Impression: This EEG is abnormal. Epileptiform discharge was seen. This can represent a potential seizure focus. Some focal slowing was seen, suggestive of a focal abnormality. Clinical correlation is needed.
[2017-10-15] MEDS ORDERED: Lidocaine 1% Inj (20ml) ONE (14:05)
--- NOTE | 2017-10-15 16:23 | CP.PCM.PN ---
Subjective - Date & Time of Evaluation Date of Evaluation: 10/15/17 Time of Evaluation: 16:21 - Subjective Subjective: pt drowsy and lethargic NG feeding tube in place Afib on monitor HR in 80's Objective - Vital Signs/Intake and Output Vital Signs (last 24 hours): Temp Pulse Resp BP Pulse Ox 99.1 F 88 18 133/86 100 10/15/17 12:00 10/15/17 15:06 10/15/17 15:06 10/15/17 15:06 10/15/17 15:06 Intake and Output: 10/15/17 10/15/17 06:59 18:59 Intake Total 800 1000 Output Total 1200 Balance 800 -200 - Medications Medications: Current Medications Acetazolamide (Diamox 250 Mg Tab) 250 mg PO BID [facility] Last Admin: 10/15/17 08:45 Dose: 250 mg Calcium Carbonate (Oscal) 500 mg PO BIDWM [facility] Last Admin: 10/15/17 08:45 Dose: 500 mg Dimethicone (Proshield Plus Skin Protectant) 1 applic TOP Q8 [facility] Last Admin: 10/15/17 08:46 Dose: 1 applic Ergocalciferol (Drisdol 50,000 Intl Units Cap) 1 cap PO Q7D [facility] Last Admin: 10/10/17 00:28 Dose: 1 cap Furosemide (Lasix) 40 mg PO DAILY [facility] Last Admin: 10/15/17 08:45 Dose: 40 mg Metronidazole (Flagyl 500mg/100ml Ns) 100 mls @ 100 mls/hr IVPB Q8 [facility] PRN Reason: Protocol Last Admin: 10/15/17 08:46 Dose: 100 mls/hr Lactobacillus Acidophilus (Bacid Acidophilus) 1 cap PO BID [facility] Last Admin: 10/15/17 08:45 Dose: 1 cap Lamotrigine (Lamictal) 25 mg PO BID [facility] Last Admin: 10/15/17 08:45 Dose: 25 mg Levalbuterol HCl (Xopenex) 1.25 mg INH RQ4 [facility] Last Admin: 10/15/17 15:51 Dose: 1.25 mg Levothyroxine Sodium (Synthroid) 12.5 mcg PO DAILY@0630 [facility] Last Admin: 10/15/17 07:53 Dose: 12.5 mcg Metoprolol Tartrate (Lopressor) 2.5 mg IVP Q6 [facility] Last Admin: 10/15/17 10:14 Dose: 2.5 mg - Labs Labs: 10/15/17 04:20 10/15/17 04:20 PT 16.7 Seconds (9.8-13.1) H 10/14/17 12:26 INR 1.5 (0.9-1.2) H 10/14/17 12:26 APTT 32.7 Seconds (25.6-37.1) 10/14/17 12:26 - Constitutional Appears: Unkempt, Older Than Stated Age, Confused - Head Exam Head Exam: ATRAUMATIC, NORMAL INSPECTION, NORMOCEPHALIC - Eye Exam Eye Exam: EOMI, Normal appearance, PERRL Pupil Exam: NORMAL ACCOMODATION, PERRL - ENT Exam ENT Exam: Mucous Membranes Moist, Normal Exam - Neck Exam Neck Exam: Full ROM, Normal Inspection. absent: Lymphadenopathy - Respiratory Exam Respiratory Exam: Clear to Ausculation Bilateral, Rhonchi - Cardiovascular Exam Cardiovascular Exam: Irregular Rhythm, +S1, +S2, Murmur - GI/Abdominal Exam GI & Abdominal Exam: Soft, Normal Bowel Sounds. absent: Tenderness - Extremities Exam Extremities Exam: Full ROM, Normal Capillary Refill, Normal Inspection. absent : Joint Swelling, Pedal Edema - Back Exam Back Exam: NORMAL INSPECTION - Neurological Exam Neurological Exam: Altered - Psychiatric Exam Psychiatric exam: Normal Affect, Normal Mood - Skin Skin Exam: Dry, Intact, Normal Color, Warm Assessment and Plan (1) Acute on chronic diastolic (congestive) heart failure Assessment & Plan: Recurrent pleural effusions had left thoracentesis done yesterday with 1450 cc drained ( third time since admission) etiology ? activated RAAS with afib IV diuretic therapy BB Status: Chronic (2) A-fib Assessment & Plan: Plan for STEVEN/CV in am NPO p mn Keep pt on IV heparin for now Status: Chronic (3) Acute respiratory failure with hypoxia Assessment & Plan: CO2 narcosis bipap pulm following Status: Acute (4) Altered mental status Assessment & Plan: etiology ? CO2 / metabolic Status: Acute (5) HTN (hypertension) Status: Chronic (6) Seizure disorder Status: Chronic (7) CANDELARIA (acute kidney injury) Status: Acute (8) Encephalopathy Status: Acute (9) Hypothermia Status: Deleted (10) Pleural effusion, bilateral Status: Acute (11) Supratherapeutic international normalized ratio (INR) Status: Acute (12) Acute decompensated heart failure Status: Acute (13) Atrial fibrillation with RVR Status: Acute
--- NOTE | 2017-10-15 16:40 | CP.PCM.PN ---
Subjective - Date & Time of Evaluation Date of Evaluation: 10/15/17 Time of Evaluation: 11:20 - Subjective Subjective: F/U Respiratory failure Pt is lethargic. Objective - Vital Signs/Intake and Output Vital Signs (last 24 hours): Temp Pulse Resp BP Pulse Ox 98.0 F 92 H 20 130/53 L 100 10/15/17 16:00 10/15/17 16:34 10/15/17 16:00 10/15/17 16:34 10/15/17 16:00 Intake and Output: 10/15/17 10/15/17 06:59 18:59 Intake Total 800 1000 Output Total 1200 Balance 800 -200 - Medications Medications: Current Medications Acetazolamide (Diamox 250 Mg Tab) 250 mg PO BID [facility] Last Admin: 10/15/17 16:35 Dose: 250 mg Calcium Carbonate (Oscal) 500 mg PO BIDWM [facility] Last Admin: 10/15/17 16:35 Dose: 500 mg Dimethicone (Proshield Plus Skin Protectant) 1 applic TOP Q8 [facility] Last Admin: 10/15/17 16:37 Dose: 1 applic Ergocalciferol (Drisdol 50,000 Intl Units Cap) 1 cap PO Q7D [facility] Last Admin: 10/10/17 00:28 Dose: 1 cap Furosemide (Lasix) 40 mg PO DAILY [facility] Last Admin: 10/15/17 08:45 Dose: 40 mg Furosemide (Lasix) 40 mg IV BID [facility] Last Admin: 10/15/17 16:33 Dose: 40 mg Metronidazole (Flagyl 500mg/100ml Ns) 100 mls @ 100 mls/hr IVPB Q8 [facility] PRN Reason: Protocol Last Admin: 10/15/17 16:35 Dose: 100 mls/hr Lactobacillus Acidophilus (Bacid Acidophilus) 1 cap PO BID [facility] Last Admin: 10/15/17 16:36 Dose: 1 cap Lamotrigine (Lamictal) 25 mg PO BID [facility] Last Admin: 10/15/17 16:35 Dose: 25 mg Levalbuterol HCl (Xopenex) 1.25 mg INH RQ4 [facility] Last Admin: 10/15/17 15:51 Dose: 1.25 mg Levothyroxine Sodium (Synthroid) 12.5 mcg PO DAILY@0630 [facility] Last Admin: 10/15/17 07:53 Dose: 12.5 mcg Metoprolol Tartrate (Lopressor) 5 mg IVP Q6 [facility] Last Admin: 10/15/17 16:34 Dose: 5 mg - Labs Labs: 10/15/17 04:20 10/15/17 04:20 PT 16.7 Seconds (9.8-13.1) H 10/14/17 12:26 INR 1.5 (0.9-1.2) H 10/14/17 12:26 APTT 32.7 Seconds (25.6-37.1) 10/14/17 12:26 - Constitutional Appears: Chronically Ill - Head Exam Head Exam: NORMAL INSPECTION - Eye Exam Eye Exam: PERRL - ENT Exam Additional comments: On high flow O2 - Neck Exam Neck Exam: Normal Inspection - Respiratory Exam Respiratory Exam: Decreased Breath Sounds (at bases), Rhonchi (scattered) - Cardiovascular Exam Cardiovascular Exam: Irregular Rhythm - GI/Abdominal Exam GI & Abdominal Exam: Soft, Normal Bowel Sounds Additional comments: NGT in place - Extremities Exam Extremities Exam: Normal Inspection - Back Exam Additional comments: DTI Sacrum - Neurological Exam Additional comments: Lethargic, non verbal, generalized weakness. - Skin Skin Exam: Warm Assessment and Plan (1) Acute respiratory failure with hypoxia Status: Acute (2) Altered mental status Status: Acute (3) Pleural effusion, bilateral Status: Acute (4) Chronic CHF Assessment & Plan: Acute on chronic diastolic Status: Deleted (5) Hx of seizure disorder Status: Chronic (6) A-fib Status: Chronic (7) CANDELARIA (acute kidney injury) Status: Acute (8) Hypothermia Status: Acute (9) HTN (hypertension) Status: Chronic - Assessment and Plan (Free Text) Plan: L thoracentesis yesterday 1450 cc drained, R effusion appear loculated, to have R thoracentesis today, Patient on High Flow O2, ABG PC02 retention , on Diamox , discussed with help desk consultant to have cardioversion in AM. ICU TIme: 38 min.
[2017-10-15] MEDS ORDERED: Heparin 25,000units in D5W 25,000 UNITS/250 ML BAG IV SCH (17:00)
--- NOTE | 2017-10-15 17:24 | RAD ---
PROCEDURE: CHEST RADIOGRAPH, 1 VIEW HISTORY: Right thoracentesis. COMPARISON: 10/13/2017 FINDINGS: LUNGS: Improved aeration of the right lung status post right thoracentesis. Stable consolidative changes left lower lobe. PLEURA: No residual right pleural effusion. Persistent left pleural effusion. CARDIOVASCULAR: No radiographic findings to suggest acute or significant cardiovascular disease. PICC line in satisfactory position Position/ configuration of pacemaker OSSEOUS STRUCTURES: No significant abnormalities. VISUALIZED UPPER ABDOMEN: Normal. OTHER FINDINGS: Nasogastric tube remains in stable and satisfactory position. IMPRESSION: No adverse findings following right thoracentesis.
[2017-10-15] MEDS: Heparin 25,000units in D5W 25,000 UNITS/250 ML BAG IV SCH (18:58)
--- NOTE | 2017-10-15 22:49 | CP.PCM.PN ---
Subjective - Date & Time of Evaluation Date of Evaluation: 10/15/17 Time of Evaluation: 21:00 - Subjective Subjective: Abnormal EEG showing focal seizure discharges. He had A Fib today. Still hard to respond Lamictal needs to be increased to Lamictal to 50 mg Q12hrs x 2weeks ( He has been too long on Lamictal 25 mg ) Then 100 mg Q 12 hrs for 1 week followed 150 mg Q 12 hrs Objective - Vital Signs/Intake and Output Vital Signs (last 24 hours): Temp Pulse Resp BP Pulse Ox 98.0 F 80 18 115/54 L 100 10/15/17 16:00 10/15/17 18:00 10/15/17 19:57 10/15/17 18:00 10/15/17 18:00 Intake and Output: 10/15/17 10/16/17 18:59 06:59 Intake Total 1400 Output Total 1900 Balance -500 - Medications Medications: Current Medications Acetazolamide (Diamox 250 Mg Tab) 250 mg PO BID [facility] Last Admin: 10/15/17 16:35 Dose: 250 mg Calcium Carbonate (Oscal) 500 mg PO BIDWM [facility] Last Admin: 10/15/17 16:35 Dose: 500 mg Dimethicone (Proshield Plus Skin Protectant) 1 applic TOP Q8 [facility] Last Admin: 10/15/17 16:37 Dose: 1 applic Ergocalciferol (Drisdol 50,000 Intl Units Cap) 1 cap PO Q7D [facility] Last Admin: 10/10/17 00:28 Dose: 1 cap Furosemide (Lasix) 40 mg PO DAILY [facility] Last Admin: 10/15/17 08:45 Dose: 40 mg Furosemide (Lasix) 40 mg IV BID [facility] Last Admin: 10/15/17 16:33 Dose: 40 mg Metronidazole (Flagyl 500mg/100ml Ns) 100 mls @ 100 mls/hr IVPB Q8 [facility] PRN Reason: Protocol Last Admin: 10/15/17 16:35 Dose: 100 mls/hr Heparin Sodium/Dextrose (Heparin 25,000 Units/250ml In D5w) 25,000 units in 250 mls @ 8 mls/hr IV .Q24H [facility] PRN Reason: Protocol Last Admin: 10/15/17 18:58 Dose: 8 mls/hr Lactobacillus Acidophilus (Bacid Acidophilus) 1 cap PO BID [facility] Last Admin: 10/15/17 16:36 Dose: 1 cap Lamotrigine (Lamictal) 25 mg PO BID [facility] Last Admin: 10/15/17 16:35 Dose: 25 mg Levalbuterol HCl (Xopenex) 1.25 mg INH RQ4 [facility] Last Admin: 10/15/17 19:47 Dose: 1.25 mg Levothyroxine Sodium (Synthroid) 12.5 mcg PO DAILY@0630 [facility] Last Admin: 10/15/17 07:53 Dose: 12.5 mcg Metoprolol Tartrate (Lopressor) 5 mg IVP Q6 [facility] Last Admin: 10/15/17 16:41 Dose: 5 mg - Labs Labs: 10/15/17 04:20 10/15/17 04:20 PT 16.7 Seconds (9.8-13.1) H 10/14/17 12:26 INR 1.5 (0.9-1.2) H 10/14/17 12:26 APTT 32.7 Seconds (25.6-37.1) 10/14/17 12:26 Assessment and Plan (1) CANDELARIA (acute kidney injury) Status: Acute (2) Acute respiratory failure Status: Acute (3) Altered mental status Status: Acute (4) Pleural effusion, bilateral Status: Acute (5) Pneumonia Status: Acute (6) Seizure disorder Status: Suspected (7) Encephalopathy Status: Acute
--- NOTE | 2017-10-16 00:42 | PN ---
DATE: 10/15/2017 LOCATION: ICU, bed 431. TIME SPENT: 35 minutes. SUBJECTIVE: The patient is seen and evaluated at the bedside. Past medical, surgical and social history reviewed. Overnight events noted. High-flow nasal oxygen 30 liters, 60%, saturating 100%, pO2 155. Remained normotensive. No temperature noted. Had bowel movement this morning. Remains lethargic, but arousable. Had ultrasound-guided right thoracentesis. Post procedure, chest x-ray shows no pneumothorax, resolved effusion with atelectasis. PHYSICAL EXAMINATION: Vital signs; temperature 99.1, heart rate 88 irregular, blood pressure 133/86, mean arterial pressure 101, oxygen saturation 100%. On high-flow nasal oxygen. Intake 1200 mL; output not documented. Head, Eyes, Ears, Nose and Throat: Pupils are reactive. Conjunctivae pink. Sclerae white. Neck: Short, contracted. Chest: Bilateral breath sounds, clear to auscultation anteriorly and laterally, improved breath sounds on both sides. Expiration not prolonged. Heart: Rhythm irregular. Abdomen: Bowel sounds present. Soft. No distention. Extremities: With dependent edema. Neuro: Lethargic. Opens eyes on calling the patient's name. Remains nonverbal. Reportedly interactive as per patient's . LABORATORY DATA: WBC 8.8, hemoglobin 8.9, hematocrit 29.5, platelet count of 365. PT 16.7, INR 1.5, PTT 32.7. ABG; pH 7.26, pCO2 of 62, pO2 155, saturation 100 on high-flow 30 liters with 60% FIO2. SMA-7; sodium 146, potassium 5.1, chloride 113, CO2 of 28, blood urea nitrogen 40, creatinine 1.4, random glucose 89, calcium 7.5. Urinalysis; clear, urine nitrate negative. CURRENT MEDICATIONS: Include; Diamox 250 mg b.i.d., calcium carbonate 500 mg twice daily, Proshield Plus skin protectant one application topically q. 8, ergocalciferol 1 capsule p.o. once a week, Lasix 40 p.o. daily, lactobacillus 1 capsule twice daily, Lamictal 25 mg b.i.d., Xopenex 1.25 mg q. 4, Synthroid 12.5 mg daily, metoprolol 2.5 mg IV q. 6 p.r.n., metronidazole 500 mg q.8h. DIAGNOSTIC DATA: Chest x-ray; haziness at left base, suggesting recurrence of pleural effusion; right clear with improved atelectasis, status post thoracentesis. EEG; abnormal, epileptiform discharge, potential seizure focus, some focal slowing secondary to focal abnormality. IMPRESSION: 1. NEURO: Status post questionable cerebrovascular accident. Seizure disorder, on Lamictal. Repeat EEG shows epileptiform focus with focal abnormality. Currently on Lamictal 25 mg daily. Resolving septic encephalopathy. Hypoxia, on high-flow oxygen. 2. PULMONARY: Hypercapnic hypoxic respiratory failure, on high-flow nasal oxygen. Worsening CO2 retention. Currently on Diamox. Monitor respiratory status. Status post right thoracentesis with improved air entry and improved oxygenation. 3. CARDIAC: History of chronic atrial fibrillation, rate controlled; on amiodarone and metoprolol. Cardiac history of diastolic heart failure, on Lasix. Cardiology re-consulted for optimization of heart failure and related accumulation of pleural effusion. 4. RENAL: Chronic renal insufficiency. Currently, BUN 40 and creatinine 1.4, on diuretics. 5. HEMATOLOGY. Leukocytosis, resolved. Anemia of chronic disease. Normal platelet count. Mild coagulopathy. Stool Clostridium difficile positive, on Flagyl, continue OT/PT as tolerated. On sports medicine bed, for percussion and to reduce atelectasis. Clive Buckner MD
[2017-10-16] MEDS: metroNIDAZOLE 500mg/100ml NS 100 ML IVPB SCH ×3 (02:15→17:00)
[2017-10-16] MEDS: Proshield Plus GEL TOP SCH ×3 (02:20→16:43)
[2017-10-16] MEDS: Metoprolol 1 mg/ml Inj IVP SCH ×4 (04:22→21:13)
[2017-10-16] MEDS: Levalbuterol 1.25 MG/3 ML Inhal Soln UD INH SCH ×2 (04:53→07:16)
[2017-10-16 06:14] LABS: MEAN CELL VOLUME 93.8 fl (80.0-94.0); MEAN CORPUSCULAR HEMOGLOBIN 29.1 pg (27.0-31.0); RBC 2.76 Mil/uL (4.40-5.90); RED CELL DISTRIBUTION WIDTH 18.1 % (11.5-14.5); WHITE BLOOD COUNT 6.6 K/uL (4.8-10.8)
[2017-10-16 06:20] LABS: BLOOD UREA NITROGEN 41 mg/dl (9-20); CALCIUM 7.4 mg/dL (8.4-10.2); GFR AFRICAN-AMERICAN > 60; GFR NON-AFRICAN AMERICAN 53
[2017-10-16] MEDS ORDERED: Midazolam 2 MG/2 ML VIAL ONE (09:00)
[2017-10-16] MEDS ORDERED: Propofol 10 mg/ml Inj (20 ML) ONE (09:00)
[2017-10-16] MEDS ORDERED: Etomidate 20 mg/10ml Inj IV ONE (09:01)
--- NOTE | 2017-10-16 09:19 | CP.PCM.PN ---
Subjective - Date & Time of Evaluation Date of Evaluation: 10/16/17 Time of Evaluation: 08:30 - Subjective Subjective: F/U Respiratory Failure lethargic , on high flow O2 Objective - Vital Signs/Intake and Output Vital Signs (last 24 hours): Temp Pulse Resp BP Pulse Ox 98.8 F 91 H 21 136/62 100 10/16/17 08:00 10/16/17 08:00 10/16/17 08:00 10/16/17 08:00 10/16/17 08:00 Intake and Output: 10/16/17 10/16/17 06:59 18:59 Intake Total 350 Output Total 850 Balance -500 - Medications Medications: Current Medications Acetazolamide (Diamox 250 Mg Tab) 250 mg PO BID [facility] Last Admin: 10/15/17 16:35 Dose: 250 mg Calcium Carbonate (Oscal) 500 mg PO BIDWM [facility] Last Admin: 10/15/17 16:35 Dose: 500 mg Dimethicone (Proshield Plus Skin Protectant) 1 applic TOP Q8 [facility] Last Admin: 10/16/17 02:20 Dose: 1 applic Ergocalciferol (Drisdol 50,000 Intl Units Cap) 1 cap PO Q7D [facility] Last Admin: 10/10/17 00:28 Dose: 1 cap Furosemide (Lasix) 40 mg PO DAILY [facility] Last Admin: 10/15/17 08:45 Dose: 40 mg Furosemide (Lasix) 40 mg IV BID [facility] Last Admin: 10/15/17 16:33 Dose: 40 mg Metronidazole (Flagyl 500mg/100ml Ns) 100 mls @ 100 mls/hr IVPB Q8 [facility] PRN Reason: Protocol Last Admin: 10/16/17 02:15 Dose: 100 mls/hr Heparin Sodium/Dextrose (Heparin 25,000 Units/250ml In D5w) 25,000 units in 250 mls @ 8 mls/hr IV .Q24H [facility] PRN Reason: Protocol Last Titration: 10/16/17 03:14 Dose: 5.5 mls/hr Lactobacillus Acidophilus (Bacid Acidophilus) 1 cap PO BID [facility] Last Admin: 10/15/17 16:36 Dose: 1 cap Lamotrigine (Lamictal) 50 mg PO Q12 [facility] Levothyroxine Sodium (Synthroid) 12.5 mcg PO DAILY@0630 [facility] Last Admin: 10/15/17 07:53 Dose: 12.5 mcg Metoprolol Tartrate (Lopressor) 5 mg IVP Q6 [facility] Last Admin: 10/16/17 04:22 Dose: 5 mg - Labs Labs: 10/16/17 05:00 10/16/17 05:00 PT 16.7 Seconds (9.8-13.1) H 10/14/17 12:26 INR 1.5 (0.9-1.2) H 10/14/17 12:26 APTT 240.6 Seconds (25.6-37.1) H* D 10/16/17 01:00 - Constitutional Appears: Chronically Ill - Head Exam Head Exam: NORMAL INSPECTION - Eye Exam Eye Exam: PERRL - ENT Exam ENT Exam: Normal Exam - Neck Exam Neck Exam: Normal Inspection - Respiratory Exam Respiratory Exam: Decreased Breath Sounds (at bases) - Cardiovascular Exam Cardiovascular Exam: Irregular Rhythm - GI/Abdominal Exam GI & Abdominal Exam: Soft, Normal Bowel Sounds - Extremities Exam Extremities Exam: Pedal Edema - Back Exam Additional comments: DTI Sacrum - Neurological Exam Additional comments: lethargic , non verbal , generalized weakness - Skin Skin Exam: Warm Assessment and Plan (1) Acute respiratory failure with hypoxia Assessment & Plan: PCO2 retention Status: Acute (2) Altered mental status Status: Acute (3) Pleural effusion, bilateral Status: Acute (4) Chronic CHF Assessment & Plan: Acute diastolid on chronic Status: Deleted (5) Hx of seizure disorder Status: Chronic (6) A-fib Status: Chronic (7) CANDELARIA (acute kidney injury) Status: Acute (8) Anemia Status: Chronic - Assessment and Plan (Free Text) Plan: Monitor AFib , occasional RSR , Hgb 8 , PTT 240, repeat CBC ,PT , PTT, CXR Stat, f/u report , Patient was examined with [employer] at bedside ,for Cardioversion today ICU Time: 40 min.
--- NOTE | 2017-10-16 09:32 | CP.PCM.PN ---
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 Last Admin: 10/15/17 16:35 Dose: 250 mg Calcium Carbonate (Oscal) [address] [facility] Last Admin: 10/15/17 16:35 Dose: 500 mg Dimethicone (Proshield Plus Skin Protectant) [address] [facility] Last Admin: 10/16/17 02:20 Dose: 1 applic Ergocalciferol (Drisdol 50,000 Intl Units Cap) [address] [facility] Last Admin: 10/10/17 00:28 Dose: 1 cap Furosemide (Lasix) [address] [facility] Last Admin: 10/15/17 08:45 Dose: 40 mg Furosemide (Lasix) [address] [facility] Last Admin: 10/15/17 16:33 Dose: 40 mg Metronidazole (Flagyl 500mg/100ml Ns) 100 mls @ 100 mls/hr IVPB Q8 [facility] PRN Reason: Protocol Last Admin: 10/16/17 02:15 Dose: 100 mls/hr Heparin Sodium/Dextrose (Heparin 25,000 Units/250ml In D5w) 25,000 units in 250 mls @ 8 mls/hr IV .Q24H [facility] PRN Reason: Protocol Last Titration: 10/16/17 03:14 Dose: 5.5 mls/hr Lactobacillus Acidophilus (Bacid Acidophilus) [address] [facility] Last Admin: 10/15/17 16:36 Dose: 1 cap Lamotrigine (Lamictal) [address] [facility] Levothyroxine Sodium (Synthroid) 12.5 mcg PO DAILY@0630 [facility] Last Admin: 10/15/17 07:53 Dose: 12.5 mcg Metoprolol Tartrate (Lopressor) [address] [facility] Last Admin: 10/16/17 04:22 Dose: 5 mg - Labs Labs: 10/16/17 05:00 10/16/17 05:00 PT 16.7 Seconds (9.8-13.1) H 10/14/17 12:26 INR 1.5 (0.9-1.2) H 10/14/17 12:26 APTT 240.6 Seconds (25.6-37.1) H* D 10/16/17 01:00 - Constitutional Appears: Other - Head Exam Head Exam: ATRAUMATIC, NORMOCEPHALIC Additional comments: nasal bridge ulceration noted from Bipap - Eye Exam Eye Exam: PERRL Pupil Exam: NORMAL ACCOMODATION, PERRL - ENT Exam ENT Exam: Mucous Membranes Dry - Neck Exam Neck Exam: Full ROM, Normal Inspection - Respiratory Exam Respiratory Exam: Decreased Breath Sounds, Rales - Cardiovascular Exam Cardiovascular Exam: Irregular Rhythm, RRR, +S1, +S2, Murmur - GI/Abdominal Exam GI & Abdominal Exam: Normal Bowel Sounds - Extremities Exam Extremities Exam: Normal Capillary Refill, Normal Inspection, Pedal Edema - Back Exam Back Exam: NORMAL INSPECTION - Neurological Exam Neurological Exam: Altered Additional comments: obtunded , unable to do neuro exam - Skin Skin Exam: Normal Color, Warm Assessment and Plan (1) A-fib Assessment & Plan: BB increased yesterday to 5mg IV k2phord Converted to NSR post cardioversion with 200J DCCV cont BB , IV heparin for now Status: Chronic (2) Acute on chronic diastolic (congestive) heart failure Assessment & Plan: BNP 2580 Cont lasix 40mg IV Q12 hours repeat BNP in 24-48hours On BB EF normal Mild to moderate pulmonary HTN Status: Chronic (3) Acute respiratory failure with hypoxia Status: Acute (4) Altered mental status Assessment & Plan: Etiology unclear ? metabolic vs. seizures Neuro on-board getting recrods from [place] ? SBE Status: Acute (5) HTN (hypertension) Status: Deleted (6) Seizure disorder Status: Chronic (7) CANDELARIA (acute kidney injury) Status: Acute (8) Encephalopathy Status: Acute (9) Hypothermia Status: Deleted (10) Pleural effusion, bilateral Status: Acute (11) Supratherapeutic international normalized ratio (INR) Status: Acute (12) Acute decompensated heart failure Status: Acute (13) Atrial fibrillation with RVR Status: Acute
[2017-10-16 09:33] LABS: BASO # 0.1 K/uL (0.0-0.2); EOS # 0.1 K/uL (0.0-0.7); EOS % 0.8 % (0.0-4.0); HEMOGLOBIN 8.6 g/dL (12.0-18.0); LYMPH # 0.7 K/uL (1.0-4.3); LYMPH % 11.6 % (20.0-40.0); MEAN CELL VOLUME 92.7 fl (80.0-94.0); MEAN CORPUSCULAR HEMOGLOBIN 29.3 pg (27.0-31.0); MEAN CORPUSCULAR HGB CONC 31.7 g/dL (33.0-37.0); MEAN PLATELET VOLUME 8.6 fl (7.2-11.7); MONO # 0.6 K/uL (0.0-0.8); MONO % 9.4 % (0.0-10.0); NEUT # 4.8 K/uL (1.8-7.0); NEUT % 77.2 % (50.0-75.0); NRBC % 0.1 % (0.0-0.0); RBC 2.93 Mil/uL (4.40-5.90); WHITE BLOOD COUNT 6.3 K/uL (4.8-10.8)
[2017-10-16] MEDS: Lactobacillus Acidophilus 500 MU Cap PO SCH ×3 (09:54→18:44)
[2017-10-16 09:56] LABS: INR 1.6 (0.9-1.2); PARTIAL THROMBOPLASTIN TIME 39.7 Seconds (25.6-37.1); PROTHROMBIN TIME 17.4 Seconds (9.8-13.1)
[2017-10-16] MEDS: Levothyroxine 25 MCG TAB PO SCH (09:58)
[2017-10-16 10:15] LABS: BLOOD UREA NITROGEN 42 mg/dl (9-20); CALCIUM 7.5 mg/dL (8.4-10.2); GFR AFRICAN-AMERICAN > 60; GFR NON-AFRICAN AMERICAN 58
--- NOTE | 2017-10-16 10:17 | RAD ---
HISTORY: post thoracentesis COMPARISON: 10/15/2017 at 3:[address] chest 10/14/2017 FINDINGS: LUNGS: Vague oval opacity diagonally oriented over right mid lung zone an interval change fluid collecting in a fissure is 1 consideration. Vague low-density nodular opacity lateral to this mid lung zone 1.5 cm - perhaps part of the interval opacity. At appreciated on a recent CT chest 10/14/2017 PLEURA: Possible reaccumulating fluid right major fissure. Persistent similar left pleural effusion. No right sided pneumothorax. Chin obscures left lung apex CARDIOVASCULAR: Moderate cardiomegaly-similar. Right PICC line tip atrial caval junction as before. Pacemaker single lead position as before and satisfactory. OSSEOUS STRUCTURES: No significant abnormalities. VISUALIZED UPPER ABDOMEN: NG tube appears beyond gastric antrum and/or looping back in the stomach OTHER FINDINGS: None. IMPRESSION: Probable reaccumulating right fissural fluid
[2017-10-16] MEDS ORDERED: Phenylephrine 10 mg/ml Inj ONE ×2 (11:13)
--- NOTE | 2017-10-16 13:00 | CP.PCM.PN ---
Subjective - Date & Time of Evaluation Date of Evaluation: 10/16/17 Time of Evaluation: 08:00 - Subjective Subjective: weak but bedridden lethargic afebrile Dr Cole to re-eval AMS Objective - Vital Signs/Intake and Output Vital Signs (last 24 hours): Temp Pulse Resp BP Pulse Ox 99.1 F 99 H 22 99/76 L 100 10/16/17 12:00 10/16/17 12:00 10/16/17 12:57 10/16/17 12:00 10/16/17 12:00 Intake and Output: 10/16/17 10/16/17 06:59 18:59 Intake Total 350 0 Output Total 850 Balance -500 0 - Medications Medications: Current Medications Acetazolamide (Diamox 250 Mg Tab) 250 mg PO BID [facility] Last Admin: 10/16/17 09:59 Dose: 250 mg Calcium Carbonate (Oscal) 500 mg PO BIDWM [facility] Last Admin: 10/16/17 09:57 Dose: 500 mg Dimethicone (Proshield Plus Skin Protectant) 1 applic TOP Q8 [facility] Last Admin: 10/16/17 09:58 Dose: 1 applic Ergocalciferol (Drisdol 50,000 Intl Units Cap) 1 cap PO Q7D [facility] Last Admin: 10/10/17 00:28 Dose: 1 cap Furosemide (Lasix) 40 mg PO DAILY [facility] Last Admin: 10/16/17 09:56 Dose: 40 mg Furosemide (Lasix) 40 mg IV BID [facility] Last Admin: 10/16/17 09:56 Dose: 40 mg Metronidazole (Flagyl 500mg/100ml Ns) 100 mls @ 100 mls/hr IVPB Q8 [facility] PRN Reason: Protocol Last Admin: 10/16/17 09:59 Dose: 100 mls/hr Heparin Sodium/Dextrose (Heparin 25,000 Units/250ml In D5w) 25,000 units in 250 mls @ 8 mls/hr IV .Q24H [facility] PRN Reason: Protocol Last Titration: 10/16/17 10:44 Dose: 7 mls/hr Lactobacillus Acidophilus (Bacid Acidophilus) 1 cap PO BID [facility] Last Admin: 10/16/17 09:54 Dose: 1 cap Lamotrigine (Lamictal) 50 mg PO Q12 [facility] Last Admin: 10/16/17 09:55 Dose: 50 mg Levothyroxine Sodium (Synthroid) 12.5 mcg PO DAILY@0630 [facility] Last Admin: 10/16/17 09:58 Dose: 12.5 mcg Metoprolol Tartrate (Lopressor) 5 mg IVP Q6 [facility] Last Admin: 10/16/17 09:57 Dose: 5 mg - Labs Labs: 10/16/17 09:20 10/16/17 09:44 PT 17.4 Seconds (9.8-13.1) H 10/16/17 09:20 INR 1.6 (0.9-1.2) H 10/16/17 09:20 APTT 39.7 Seconds (25.6-37.1) H D 10/16/17 09:20 - Constitutional Appears: Non-toxic, No Acute Distress, Confused, Chronically Ill - Head Exam Head Exam: NORMOCEPHALIC - Eye Exam Eye Exam: PERRL - ENT Exam ENT Exam: Mucous Membranes Dry - Neck Exam Neck Exam: absent: Lymphadenopathy - Respiratory Exam Respiratory Exam: Decreased Breath Sounds, Rhonchi - Cardiovascular Exam Cardiovascular Exam: REGULAR RHYTHM - GI/Abdominal Exam GI & Abdominal Exam: Distended, Soft - Rectal Exam Rectal Exam: Deferred - Exam Exam: NORMAL INSPECTION - Extremities Exam Extremities Exam: Full ROM, Pedal Edema. absent: Calf Tenderness - Back Exam Back Exam: absent: CVA tenderness (L), CVA tenderness (R) - Neurological Exam Neurological Exam: Altered Assessment and Plan (1) CANDELARIA (acute kidney injury) Status: Acute (2) Acute respiratory failure Status: Acute (3) Altered mental status Status: Acute (4) Diastolic CHF, acute on chronic Status: Acute (5) Pleural effusion, bilateral Status: Acute (6) Pneumonia Status: Acute
--- NOTE | 2017-10-16 13:22 | US ---
PROCEDURE: Date of procedure: 10/14/2017 Procedure: 1. Ultrasound-guided left thoracentesis, CPT 02351 Medications: 7cc 1% Lidocaine HISTORY: Left pleural effusion, shortness of breath TECHNIQUE: Following informed consent ,the Patients' left chest was marked. Procedure time-out was called, and the patient was placed in the sitting position and limited ultrasound showed a large left effusion. The patient's left back was prepped and draped in the usual sterile fashion. After the skin was anesthetized with lidocaine, a drainage catheter was advanced under ultrasound guidance into the pleural space. Ultrasound-guided thoracentesis was performed. A total of 1450 cubic centimeters of straw-colored fluid removed without complication. A Xeroform dressing was applied. IMPRESSION: Ultrasound guided left thoracentesis. There were no immediate complications.
--- NOTE | 2017-10-16 13:25 | US ---
PROCEDURE: Date of procedure: 10/15/2017 Procedure: 1. Ultrasound-guided Right thoracentesis, CPT 59057 Medications: 6cc 1% Lidocaine HISTORY: Right pleural effusion, shortness of breath TECHNIQUE: Following informed consent ,the Patients' right chest was marked. Procedure time-out was called, and the patient was placed in the sitting position and limited ultrasound showed a large right effusion. The patient's right back was prepped and draped in the usual sterile fashion. After the skin was anesthetized with lidocaine, a drainage catheter was advanced under ultrasound guidance into the pleural space. Ultrasound-guided thoracentesis was performed. A total of 1200 cubic centimeters of straw-colored fluid removed without complication. A Xeroform dressing was applied. IMPRESSION: Ultrasound guided Right thoracentesis. There were no immediate complications.
--- NOTE | 2017-10-16 14:06 | CARD ---
APPROVED REPORT EXAM: Transesophageal echocardiogram with color flow Doppler and Synchronized Cardioversion. INDICATION Abnormal EKG/Arrhythmia Cardio Version Mitral Valve E/A ratio0.0 TDI E/Lateral E'0.0E/Medial E'0.0 Tricuspid Valve TR Peak [id number]/sTR Peak Gr.31mmHg Reason For Test : atrial fibrillation PROCEDURE After obtaining informed consent, patient underwent transesophageal echo in the ICU/CCU. Type of Sedation : Conscious Sedation Sedation was provided by anesthesiologist. Sedation was achieved with intravenously. Transesophageal probe was inserted and advanced into esophagus without difficulty. Echo enhancement indication: R/O Septal defect. Echo enhancement agent administered: Agitated Saline The STEVEN was performed without complications. Synchronized Cardioversion acheived with 200 Joules after 1 attempt(s). Rhythm following Synchronized Cardioversion: Normal Sinus Rhythm Throughout the procedure, the blood pressure, pulse oximetry, cardiac rhythm, and rate were monitored. The patient tolerated the procedure without adverse effects. Recovery from conscious sedation was uneventful and vital signs were stable. LEFT VENTRICLE The left ventricle is normal size. There is borderline concentric left ventricular hypertrophy. The left ventricular function is normal. The left ventricular ejection fraction is within the normal range. The Ejection Fraction is 60-65%. There is normal LV segmental wall motion. Couldn't assess due to atrial fibrillation No left ventricle thrombus noted on this study. There is no ventricular septal defect visualized. There is no left ventricular aneurysm. There is no mass noted in the left ventricle. RIGHT VENTRICLE The right ventricle is normal size. There is normal right ventricular wall thickness. The right ventricular systolic function is normal. ATRIA The left atrium is mildly dilated. The right atrium size is normal. The interatrial septum is intact with no evidence for an atrial septal defect. AORTIC VALVE The aortic valve is thickened but opens well. There is small perforation noted in the left coronary cusp with a penulous vegetation attached to it. There is mild aortic regurgitation. There is no aortic valvular stenosis. There is small size aortic valvular vegetation. MITRAL VALVE The mitral valve is thickened but opens well. There is no evidence of mitral valve prolapse. There is no mitral valve stenosis. Mitral regurgitation is mild. TRICUSPID VALVE The tricuspid valve is normal in structure. There is mild to moderate tricuspid regurgitation. Right ventricular systolic pressure is estimated at 50-60 mmHg. There is mild-moderate pulmonary hypertension. There is no tricuspid valve prolapse or vegetation. There is no tricuspid valve stenosis. PULMONIC VALVE The pulmonary valve is normal in structure. There is no pulmonic valvular regurgitation. There is no pulmonic valvular stenosis. GREAT VESSELS The aortic root is normal in size. The ascending aorta is normal in size. The pulmonary artery is normal. The IVC is normal in size and collapses >50% with inspiration. PERICARDIAL EFFUSION The pericardium appears normal. There is no pleural effusion. <Conclusion> The left ventricular function is normal. The left ventricular ejection fraction is within the normal range. The Ejection Fraction is 60-65%. The aortic valve is thickened but opens well. There is small perforation noted in the left coronary cusp with a penulous vegetation attached to it. There is small size aortic valvular vegetation. There is mild to moderate tricuspid regurgitation. Right ventricular systolic pressure is estimated at 50-60 mmHg. There is mild-moderate pulmonary hypertension.
[2017-10-16 14:11] LABS: ALB/GLOB RATIO 0.6 (1.0-2.1); ALBUMIN 2.2 g/dL (3.5-5.0)
[2017-10-16] MEDS ORDERED: Chlorhexidine Gluconate 1 APPL/PKT TP ONE (15:53)
[2017-10-16] MEDS: Acyclovir 500 MG in Sodium Chloride 0.9% 100 ML IV SCH (16:46)
--- NOTE | 2017-10-16 18:22 | CP.CCUPN ---
CCU Subjective - Physician Review Subjective (Free Text): Underwent alternating thoracentesis of L, then R lung this week. STEVEN negative for clot and underwent elective cardioversion today, now in sinus rhythm at 73/ min. BPs acceptable as well. NGT 18F re-inserted today for enteral feedings and meds. He appeared to follow simple commands during NGT re-insertion: swallow. Remains on 50% oxygen and 30 LPM. Other vitals and I/O's reviewed. No fever spikes; fluid balance negative 1.0 Liters last 24H. ROS: Unobtainable due to lethargy, non verbal. No other pertinent negs or positives on 10+ system review. PMSFH: All other Nursing and physician documentation reviewed to date; no new pertinent info noted relevant to current medical problems. CXR: increase in left basilar fluid re-accumulation. IMPRESSION / MAJOR PROBLEMS NOW: 1. Acute Resp ( Hypoxemic) failure 2 bilat effusions, and compressive atelectasis, unclear if any superimposed pneumonitic process. 2. Encephalopathy: etiology unclear, ?? metabolic vs cryptogenic seizures vs ?? CVA?? 3. Chronic A Fib, presently with controlled VR 4. r/o Cardiomyopathy vs Diastolic Dysfx CHF- non-invasive TTE shows preserved EF. 5. Azotemia, CKD III ( Bun/Cr was 36/1.5 at the time of last hospital discharge) 6. Warfarin induced-coagulopathy PLAN: 1. STEVEN results noted: Pulm HTN, and Aortic valve infection. 2. ID to start empiric Acycolvir. Ongoing Flagyl coverage. 3. Lamictal increased. Check Lamo levels. 4. Continued re-accumulation of bilateral pleural effusions, doubt infectious etiology. 5. Full Code status. CCU Objective - Vital Signs / Intake & Output Vital Signs (Last 4 hours): Vital Signs Temp Pulse Resp BP Pulse Ox 10/16/17 16:42 69 131/59 L 10/16/17 16:41 131/59 L 10/16/17 16:09 21 10/16/17 16:00 97.9 F 88 17 138/71 100 Intake and Output (Last 8hrs): Intake & Output 10/16/17 10/16/17 10/16/17 06:59 14:59 22:59 Intake Total 100 0 Output Total 850 Balance -750 0 Intake: IV 100 0 Free Water Flush 0 Output: Urine 850 Urethral (Wang) 850 - Physical Exam Physical Exam Limitations: Positive for: Altered Mental Status Head: Positive for: Atraumatic, Normocephalic Pupils: Positive for: PERRL, Sluggish Extroacular Muscles: Positive for: EOMI Conjunctiva: Positive for: Normal. Negative for: Icteric Ears: Positive for: Normal Mouth: Positive for: Moist Mucous Membranes Pharnyx: Negative for: ERYTHEMA Neck: Positive for: Normal Range of Motion. Negative for: JVD Respiratory/Chest: Positive for: Decreased Breath Sounds, Rhonchi (upper airway rhonchi), Tachypneic. Negative for: Accessory Muscle Use, Wheezes Cardiovascular: Positive for: Irregular Rhythm, Peripheal Pulses Present, Tachycardic. Negative for: Murmurs, Normal S1, S2, Rub Abdomen: Positive for: Normal Bowel Sounds. Negative for: Tenderness, Distention, Peritoneal Signs Upper Extremity: Positive for: Edema Lower Extremity: Positive for: Edema, NORMAL PULSES. Negative for: CALF TENDERNESS, Cyanosis Neurological: Positive for: Other (withdraws to deep pain) Skin: Positive for: Warm, Dry. Negative for: Rashes Psychiatric: Positive for: Lethargic - Medications Active Medications: Active Medications Generic Name Dose Route Start Last Admin Trade Name Freq PRN Reason Stop Dose Admin Acetazolamide 250 mg 10/09/17 17:00 10/16/17 16:40 Diamox 250 Mg Tab PO 250 mg BID YUKI Administration Calcium Carbonate 500 mg 09/26/17 08:00 10/16/17 16:43 Oscal PO 500 mg BIDWM YUKI Administration Dimethicone 1 applic 10/07/17 17:00 10/16/17 16:43 Proshield Plus Skin Protectant TOP 1 applic Q8 YUKI Administration Ergocalciferol 1 cap 09/25/17 23:45 10/10/17 00:28 Drisdol 50,000 Intl Units Cap PO 1 cap Q7D YUKI Administration Furosemide 40 mg 10/14/17 09:15 10/15/17 08:45 Lasix PO 40 mg DAILY YUKI Administration Furosemide 40 mg 10/15/17 17:00 10/16/17 16:41 Lasix IV 40 mg BID YUKI Administration Metronidazole 100 mls @ 100 mls/hr 10/14/17 01:00 10/16/17 09:59 Flagyl 500mg/100ml Ns IVPB 100 mls/hr Q8 YUKI Administration Protocol Acyclovir 500 mg/ Sodium 100 mls @ 100 mls/hr 10/16/17 17:00 10/16/17 16:46 Chloride IV 100 mls/hr Q8 YUKI Administration Protocol Lactobacillus Acidophilus 1 cap 10/08/17 09:00 10/16/17 16:41 Bacid Acidophilus PO 1 cap BID YUKI Administration Lamotrigine 50 mg 10/16/17 09:00 10/16/17 09:55 Lamictal PO 50 mg Q12 YUKI Administration Levothyroxine Sodium 12.5 mcg 10/09/17 06:30 10/16/17 09:58 Synthroid PO 12.5 mcg DAILY@0630 YUKI Administration Metoprolol Tartrate 5 mg 10/15/17 16:28 10/16/17 16:42 Lopressor IVP 5 mg Q6 YUKI Administration - Patient Studies Lab Studies: Microbiology Studies 10/14/17 13:36 Blood Culture - Preliminary Blood-Thru Central Line NO GROWTH AFTER 48 HOURS 10/14/17 13:36 Urine Culture - Final Urine,Catheterized No Growth (<1,000 CFU/ML) 10/14/17 12:26 Blood Culture - Preliminary Blood-Venous NO GROWTH AFTER 48 HOURS Lab Studies 10/16/17 10/16/17 10/16/17 Range/Units 16:48 13:18 13:18 WBC (4.8-10.8) K/uL RBC (4.40-5.90) Mil/uL Hgb (12.0-18.0) g/dL Hct (35.0-51.0) % MCV (80.0-94.0) fl MCH (27.0-31.0) pg MCHC (33.0-37.0) g/dL RDW (11.5-14.5) % Plt Count (130-400) K/uL MPV (7.2-11.7) fl Neut % (Auto) (50.0-75.0) % Lymph % (Auto) (20.0-40.0) % Hickman % (Auto) (0.0-10.0) % Eos % (Auto) (0.0-4.0) % Baso % (Auto) (0.0-2.0) % Neut # (1.8-7.0) K/uL Lymph # (1.0-4.3) K/uL Hickman # (0.0-0.8) K/uL Eos # (0.0-0.7) K/uL Baso # (0.0-0.2) K/uL ESR > 120 H (0-20) mm/hr PT (9.8-13.1) Seconds INR (0.9-1.2) APTT 42.4 H (25.6-37.1) Seconds Sodium (132-148) mmol/l Potassium (3.6-5.0) MMOL/L Chloride (98-107) mmol/L Carbon Dioxide (22-30) mmol/L Anion Gap (10-20) BUN (9-20) mg/dl Creatinine (0.8-1.5) mg/dl Est GFR ( Amer) Est GFR (Non-Af Amer) Random Glucose (75-110) mg/dL Calcium (8.4-10.2) mg/dL Total Bilirubin (0.2-1.3) mg/dl Direct Bilirubin (0.0-0.4) mg/ml AST (17-59) U/L ALT (21-72) U/L Alkaline Phosphatase (38-126) U/L Ammonia (16-60) umo/L NT-Pro-B Natriuret Pep (0-900) pg/ml Total Protein (6.3-8.2) G/DL Albumin (3.5-5.0) g/dL Globulin (2.2-3.9) gm/dL Albumin/Globulin Ratio (1.0-2.1) Vitamin B12 (239-931) pg/mL Free T4 1.19 (0.78-2.19) ng/dL TSH 3rd Generation (0.46-4.68) mIU/ML C. difficile Ag & Toxin (NEGATIVE) 10/16/17 10/16/17 10/16/17 Range/Units 13:18 11:41 09:51 WBC (4.8-10.8) K/uL RBC (4.40-5.90) Mil/uL Hgb (12.0-18.0) g/dL Hct (35.0-51.0) % MCV (80.0-94.0) fl MCH (27.0-31.0) pg MCHC (33.0-37.0) g/dL RDW (11.5-14.5) % Plt Count (130-400) K/uL MPV (7.2-11.7) fl Neut % (Auto) (50.0-75.0) % Lymph % (Auto) (20.0-40.0) % Hickman % (Auto) (0.0-10.0) % Eos % (Auto) (0.0-4.0) % Baso % (Auto) (0.0-2.0) % Neut # (1.8-7.0) K/uL Lymph # (1.0-4.3) K/uL Hickman # (0.0-0.8) K/uL Eos # (0.0-0.7) K/uL Baso # (0.0-0.2) K/uL ESR (0-20) mm/hr PT (9.8-13.1) Seconds INR (0.9-1.2) APTT (25.6-37.1) Seconds Sodium (132-148) mmol/l Potassium (3.6-5.0) MMOL/L Chloride (98-107) mmol/L Carbon Dioxide (22-30) mmol/L Anion Gap (10-20) BUN (9-20) mg/dl Creatinine (0.8-1.5) mg/dl Est GFR ( Amer) Est GFR (Non-Af Amer) Random Glucose (75-110) mg/dL Calcium (8.4-10.2) mg/dL Total Bilirubin 0.1 L (0.2-1.3) mg/dl Direct Bilirubin 0.0 (0.0-0.4) mg/ml AST 27 (17-59) U/L ALT 21 (21-72) U/L Alkaline Phosphatase 77 (38-126) U/L Ammonia 11 L D (16-60) umo/L NT-Pro-B Natriuret Pep 2580 H (0-900) pg/ml Total Protein 5.8 L (6.3-8.2) G/DL Albumin 2.2 L (3.5-5.0) g/dL Globulin 3.6 (2.2-3.9) gm/dL Albumin/Globulin Ratio 0.6 L (1.0-2.1) Vitamin B12 622 (239-931) pg/mL Free T4 (0.78-2.19) ng/dL TSH 3rd Generation 5.00 H (0.46-4.68) mIU/ML C. difficile Ag & Toxin (NEGATIVE) 10/16/17 10/16/17 10/16/17 Range/Units 09:44 09:20 09:20 WBC 6.3 (4.8-10.8) K/uL RBC 2.93 L (4.40-5.90) Mil/uL Hgb 8.6 L (12.0-18.0) g/dL Hct 27.1 L (35.0-51.0) % MCV 92.7 (80.0-94.0) fl MCH 29.3 (27.0-31.0) pg MCHC 31.7 L (33.0-37.0) g/dL RDW 18.0 H (11.5-14.5) % Plt Count 311 (130-400) K/uL MPV 8.6 (7.2-11.7) fl Neut % (Auto) 77.2 H (50.0-75.0) % Lymph % (Auto) 11.6 L (20.0-40.0) % Hickman % (Auto) 9.4 (0.0-10.0) % Eos % (Auto) 0.8 (0.0-4.0) % Baso % (Auto) 1.0 (0.0-2.0) % Neut # 4.8 (1.8-7.0) K/uL Lymph # 0.7 L (1.0-4.3) K/uL Hickman # 0.6 (0.0-0.8) K/uL Eos # 0.1 (0.0-0.7) K/uL Baso # 0.1 (0.0-0.2) K/uL ESR (0-20) mm/hr PT 17.4 H (9.8-13.1) Seconds INR 1.6 H (0.9-1.2) APTT 39.7 H D (25.6-37.1) Seconds Sodium 144 (132-148) mmol/l Potassium 4.9 (3.6-5.0) MMOL/L Chloride 111 H (98-107) mmol/L Carbon Dioxide 27 (22-30) mmol/L Anion Gap 11 (10-20) BUN 42 H (9-20) mg/dl Creatinine 1.2 (0.8-1.5) mg/dl Est GFR ( Amer) > 60 Est GFR (Non-Af Amer) 58 Random Glucose 78 (75-110) mg/dL Calcium 7.5 L (8.4-10.2) mg/dL Total Bilirubin (0.2-1.3) mg/dl Direct Bilirubin (0.0-0.4) mg/ml AST (17-59) U/L ALT (21-72) U/L Alkaline Phosphatase (38-126) U/L Ammonia (16-60) umo/L NT-Pro-B Natriuret Pep (0-900) pg/ml Total Protein (6.3-8.2) G/DL Albumin (3.5-5.0) g/dL Globulin (2.2-3.9) gm/dL Albumin/Globulin Ratio (1.0-2.1) Vitamin B12 (239-931) pg/mL Free T4 (0.78-2.19) ng/dL TSH 3rd Generation (0.46-4.68) mIU/ML C. difficile Ag & Toxin (NEGATIVE) 10/16/17 10/16/17 10/16/17 Range/Units 05:00 05:00 01:00 WBC 6.6 (4.8-10.8) K/uL RBC 2.76 L (4.40-5.90) Mil/uL Hgb 8.0 L (12.0-18.0) g/dL Hct 25.9 L (35.0-51.0) % MCV 93.8 (80.0-94.0) fl MCH 29.1 (27.0-31.0) pg MCHC 31.0 L (33.0-37.0) g/dL RDW 18.1 H (11.5-14.5) % Plt Count 300 (130-400) K/uL MPV (7.2-11.7) fl Neut % (Auto) (50.0-75.0) % Lymph % (Auto) (20.0-40.0) % Hickman % (Auto) (0.0-10.0) % Eos % (Auto) (0.0-4.0) % Baso % (Auto) (0.0-2.0) % Neut # (1.8-7.0) K/uL Lymph # (1.0-4.3) K/uL Hickman # (0.0-0.8) K/uL Eos # (0.0-0.7) K/uL Baso # (0.0-0.2) K/uL ESR (0-20) mm/hr PT (9.8-13.1) Seconds INR (0.9-1.2) APTT 240.6 H* D (25.6-37.1) Seconds Sodium 144 (132-148) mmol/l Potassium 4.4 (3.6-5.0) MMOL/L Chloride 112 H (98-107) mmol/L Carbon Dioxide 29 (22-30) mmol/L Anion Gap 7 L (10-20) BUN 41 H (9-20) mg/dl Creatinine 1.3 (0.8-1.5) mg/dl Est GFR ( Amer) > 60 Est GFR (Non-Af Amer) 53 Random Glucose 80 (75-110) mg/dL Calcium 7.4 L (8.4-10.2) mg/dL Total Bilirubin (0.2-1.3) mg/dl Direct Bilirubin (0.0-0.4) mg/ml AST (17-59) U/L ALT (21-72) U/L Alkaline Phosphatase (38-126) U/L Ammonia (16-60) umo/L NT-Pro-B Natriuret Pep (0-900) pg/ml Total Protein (6.3-8.2) G/DL Albumin (3.5-5.0) g/dL Globulin (2.2-3.9) gm/dL Albumin/Globulin Ratio (1.0-2.1) Vitamin B12 (239-931) pg/mL Free T4 (0.78-2.19) ng/dL TSH 3rd Generation (0.46-4.68) mIU/ML C. difficile Ag & Toxin (NEGATIVE) 10/15/17 Range/Units 21:12 WBC (4.8-10.8) K/uL RBC (4.40-5.90) Mil/uL Hgb (12.0-18.0) g/dL Hct (35.0-51.0) % MCV (80.0-94.0) fl MCH (27.0-31.0) pg MCHC (33.0-37.0) g/dL RDW (11.5-14.5) % Plt Count (130-400) K/uL MPV (7.2-11.7) fl Neut % (Auto) (50.0-75.0) % Lymph % (Auto) (20.0-40.0) % Hickman % (Auto) (0.0-10.0) % Eos % (Auto) (0.0-4.0) % Baso % (Auto) (0.0-2.0) % Neut # (1.8-7.0) K/uL Lymph # (1.0-4.3) K/uL Hickman # (0.0-0.8) K/uL Eos # (0.0-0.7) K/uL Baso # (0.0-0.2) K/uL ESR (0-20) mm/hr PT (9.8-13.1) Seconds INR (0.9-1.2) APTT (25.6-37.1) Seconds Sodium (132-148) mmol/l Potassium (3.6-5.0) MMOL/L Chloride (98-107) mmol/L Carbon Dioxide (22-30) mmol/L Anion Gap (10-20) BUN (9-20) mg/dl Creatinine (0.8-1.5) mg/dl Est GFR ( Amer) Est GFR (Non-Af Amer) Random Glucose (75-110) mg/dL Calcium (8.4-10.2) mg/dL Total Bilirubin (0.2-1.3) mg/dl Direct Bilirubin (0.0-0.4) mg/ml AST (17-59) U/L ALT (21-72) U/L Alkaline Phosphatase (38-126) U/L Ammonia (16-60) umo/L NT-Pro-B Natriuret Pep (0-900) pg/ml Total Protein (6.3-8.2) G/DL Albumin (3.5-5.0) g/dL Globulin (2.2-3.9) gm/dL Albumin/Globulin Ratio (1.0-2.1) Vitamin B12 (239-931) pg/mL Free T4 (0.78-2.19) ng/dL TSH 3rd Generation (0.46-4.68) mIU/ML C. difficile Ag & Toxin Positive antigen (NEGATIVE) Laboratory Results - last 24 hr 10/15/17 10/16/17 10/16/17 21:12 01:00 05:00 WBC 6.6 RBC 2.76 L Hgb 8.0 L Hct 25.9 L MCV 93.8 MCH 29.1 MCHC 31.0 L RDW 18.1 H Plt Count 300 MPV Neut % (Auto) Lymph % (Auto) Hickman % (Auto) Eos % (Auto) Baso % (Auto) Neut # Lymph # Hickman # Eos # Baso # ESR PT INR APTT 240.6 H* D Sodium Potassium Chloride Carbon Dioxide Anion Gap BUN Creatinine Est GFR ( Amer) Est GFR (Non-Af Amer) Random Glucose Calcium Total Bilirubin Direct Bilirubin AST ALT Alkaline Phosphatase Ammonia NT-Pro-B Natriuret Pep Total Protein Albumin Globulin Albumin/Globulin Ratio Vitamin B12 Free T4 TSH 3rd Generation C. difficile Ag & Toxin Positive antigen 10/16/17 10/16/17 10/16/17 05:00 09:20 09:20 WBC 6.3 RBC 2.93 L Hgb 8.6 L Hct 27.1 L MCV 92.7 MCH 29.3 MCHC 31.7 L RDW 18.0 H Plt Count 311 MPV 8.6 Neut % (Auto) 77.2 H Lymph % (Auto) 11.6 L Hickman % (Auto) 9.4 Eos % (Auto) 0.8 Baso % (Auto) 1.0 Neut # 4.8 Lymph # 0.7 L Hickman # 0.6 Eos # 0.1 Baso # 0.1 ESR PT 17.4 H INR 1.6 H APTT 39.7 H D Sodium 144 Potassium 4.4 Chloride 112 H Carbon Dioxide 29 Anion Gap 7 L BUN 41 H Creatinine 1.3 Est GFR ( Amer) > 60 Est GFR (Non-Af Amer) 53 Random Glucose 80 Calcium 7.4 L Total Bilirubin Direct Bilirubin AST ALT Alkaline Phosphatase Ammonia NT-Pro-B Natriuret Pep Total Protein Albumin Globulin Albumin/Globulin Ratio Vitamin B12 Free T4 TSH 3rd Generation C. difficile Ag & Toxin 10/16/17 10/16/17 10/16/17 09:44 09:51 11:41 WBC RBC Hgb Hct MCV MCH MCHC RDW Plt Count MPV Neut % (Auto) Lymph % (Auto) Hickman % (Auto) Eos % (Auto) Baso % (Auto) Neut # Lymph # Hickman # Eos # Baso # ESR PT INR APTT Sodium 144 Potassium 4.9 Chloride 111 H Carbon Dioxide 27 Anion Gap 11 BUN 42 H Creatinine 1.2 Est GFR ( Amer) > 60 Est GFR (Non-Af Amer) 58 Random Glucose 78 Calcium 7.5 L Total Bilirubin Direct Bilirubin AST ALT Alkaline Phosphatase Ammonia 11 L D NT-Pro-B Natriuret Pep 2580 H Total Protein Albumin Globulin Albumin/Globulin Ratio Vitamin B12 Free T4 TSH 3rd Generation C. difficile Ag & Toxin 10/16/17 10/16/17 10/16/17 13:18 13:18 13:18 WBC RBC Hgb Hct MCV MCH MCHC RDW Plt Count MPV Neut % (Auto) Lymph % (Auto) Hickman % (Auto) Eos % (Auto) Baso % (Auto) Neut # Lymph # Hickman # Eos # Baso # ESR > 120 H PT INR APTT Sodium Potassium Chloride Carbon Dioxide Anion Gap BUN Creatinine Est GFR ( Amer) Est GFR (Non-Af Amer) Random Glucose Calcium Total Bilirubin 0.1 L Direct Bilirubin 0.0 AST 27 ALT 21 Alkaline Phosphatase 77 Ammonia NT-Pro-B Natriuret Pep Total Protein 5.8 L Albumin 2.2 L Globulin 3.6 Albumin/Globulin Ratio 0.6 L Vitamin B12 622 Free T4 1.19 TSH 3rd Generation 5.00 H C. difficile Ag & Toxin 10/16/17 16:48 WBC RBC Hgb Hct MCV MCH MCHC RDW Plt Count MPV Neut % (Auto) Lymph % (Auto) Hickman % (Auto) Eos % (Auto) Baso % (Auto) Neut # Lymph # Hickman # Eos # Baso # ESR PT INR APTT 42.4 H Sodium Potassium Chloride Carbon Dioxide Anion Gap BUN Creatinine Est GFR ( Amer) Est GFR (Non-Af Amer) Random Glucose Calcium Total Bilirubin Direct Bilirubin AST ALT Alkaline Phosphatase Ammonia NT-Pro-B Natriuret Pep Total Protein Albumin Globulin Albumin/Globulin Ratio Vitamin B12 Free T4 TSH 3rd Generation C. difficile Ag & Toxin Fingerstick Blood Sugar Results: 83 Review of Systems - Review of Systems Systems not reviewed;Unavailable: Altered Mental Status
[2017-10-16] MEDS: Heparin 25,000units in D5W 25,000 UNITS/250 ML BAG IV SCH (18:59)
[2017-10-16] MEDS ORDERED: Heparin 25,000units in D5W 25,000 UNITS/250 ML BAG IV SCH (19:15)
--- NOTE | 2017-10-17 00:14 | CP.PCM.PN ---
Subjective - Date & Time of Evaluation Date of Evaluation: 10/16/17 Time of Evaluation: 21:05 - Subjective Subjective: On Lamictal 50 mg Q 12 hrs There are no seizures seen. IMPRESSION of CXR: Probable reaccumulating right fissural fluid Cardiology has performed Cardioversion. He is reported to follow simple commands. The patient is still on 50 % Oxygen Objective - Vital Signs/Intake and Output Vital Signs (last 24 hours): Temp Pulse Resp BP Pulse Ox 97.9 F 78 29 H 148/57 L 100 10/16/17 16:00 10/16/17 21:13 10/16/17 19:37 10/16/17 21:13 10/16/17 16:00 Intake and Output: 10/16/17 10/17/17 18:59 06:59 Intake Total 150 Balance 150 - Medications Medications: Current Medications Acetazolamide (Diamox 250 Mg Tab) 250 mg PO BID [facility] Last Admin: 10/16/17 16:40 Dose: 250 mg Calcium Carbonate (Oscal) 500 mg PO BIDWM YUKI Last Admin: 10/16/17 16:43 Dose: 500 mg Dimethicone (Proshield Plus Skin Protectant) 1 applic TOP Q8 [facility] Last Admin: 10/16/17 16:43 Dose: 1 applic Ergocalciferol (Drisdol 50,000 Intl Units Cap) 1 cap PO QD7@2100 YUKI Furosemide (Lasix) 40 mg IV BID [facility] Last Admin: 10/16/17 16:41 Dose: 40 mg Metronidazole (Flagyl 500mg/100ml Ns) 100 mls @ 100 mls/hr IVPB Q8 YUKI PRN Reason: Protocol Last Admin: 10/16/17 17:00 Dose: 100 mls/hr Acyclovir 500 mg/ Sodium (Chloride) 100 mls @ 100 mls/hr IV Q8 YUKI PRN Reason: Protocol Last Admin: 10/16/17 16:46 Dose: 100 mls/hr Heparin Sodium/Dextrose (Heparin 25,000 Units/250ml In D5w) 25,000 units in 250 mls @ 8 mls/hr IV .Q24H YUKI PRN Reason: Protocol Last Admin: 10/16/17 19:15 Dose: 8.5 mls/hr Lactobacillus Acidophilus (Bacid Acidophilus) 1 cap PO BID [facility] Last Admin: 10/16/17 18:44 Dose: Not Given Lamotrigine (Lamictal) 50 mg PO Q12 [facility] Last Admin: 10/16/17 22:26 Dose: 50 mg Levothyroxine Sodium (Synthroid) 12.5 mcg PO DAILY@30 [facility] Last Admin: 10/16/17 09:58 Dose: 12.5 mcg Metoprolol Tartrate (Lopressor) 5 mg IVP Q6 [facility] Last Admin: 10/16/17 21:13 Dose: 5 mg - Labs Labs: 10/16/17 09:20 10/16/17 09:44 PT 17.4 Seconds (9.8-13.1) H 10/16/17 09:20 INR 1.6 (0.9-1.2) H 10/16/17 09:20 APTT 42.4 Seconds (25.6-37.1) H 10/16/17 16:48 Assessment and Plan (1) CANDELARIA (acute kidney injury) Status: Acute (2) Acute respiratory failure Status: Acute (3) Altered mental status Status: Acute (4) Pleural effusion, bilateral Status: Acute (5) Pneumonia Status: Acute (6) Seizure disorder Status: Suspected (7) Encephalopathy Status: Acute
[2017-10-17] MEDS: Acyclovir 500 MG in Sodium Chloride 0.9% 100 ML IV SCH ×3 (01:21→17:08)
[2017-10-17] MEDS: metroNIDAZOLE 500mg/100ml NS 100 ML IVPB SCH ×3 (01:21→17:09)
[2017-10-17] MEDS: Proshield Plus GEL TOP SCH ×3 (01:22→17:12)
[2017-10-17] MEDS: Metoprolol 1 mg/ml Inj IVP SCH ×4 (04:12→23:03)
[2017-10-17 06:28] LABS: HEMOGLOBIN 8.3 g/dL (12.0-18.0); MEAN CELL VOLUME 92.4 fl (80.0-94.0); MEAN CORPUSCULAR HEMOGLOBIN 29.2 pg (27.0-31.0); MEAN CORPUSCULAR HGB CONC 31.6 g/dL (33.0-37.0); RBC 2.82 Mil/uL (4.40-5.90); WHITE BLOOD COUNT 7.2 K/uL (4.8-10.8)
[2017-10-17 07:09] LABS: BLOOD UREA NITROGEN 43 mg/dl (9-20); CALCIUM 7.3 mg/dL (8.4-10.2); GFR AFRICAN-AMERICAN > 60; GFR NON-AFRICAN AMERICAN 53
[2017-10-17] MEDS: Levothyroxine 25 MCG TAB PO SCH (08:24)
[2017-10-17] MEDS: Lactobacillus Acidophilus 500 MU Cap PO SCH ×2 (08:26→17:07)
--- NOTE | 2017-10-17 10:54 | CP.CCUPN ---
CCU Subjective - Physician Review Subjective (Free Text): Uneventful overnight, eyes open spontaneous;y briefly this AM, but not consistently following simple commands nor is he interactice, nor spontaneoulsy conversant. Remains on 40% oxygen and 30 LPM (decreased from . Other vitals and I/O's reviewed. No fever spikes; fluid balance negative 1.0 Liters last 24H. ROS: Unobtainable due to lethargy, non verbal. No other pertinent negs or positives on 10+ system review. PMSFH: All other Nursing and physician documentation reviewed to date; no new pertinent info noted relevant to current medical problems. IMPRESSION / MAJOR PROBLEMS NOW: 1. Acute Resp ( Hypoxemic) failure 2 bilat effusions, and compressive atelectasis, unclear if any superimposed pneumonitic process. 2. Encephalopathy: etiology unclear, ?? metabolic vs cryptogenic seizures vs ?? CVA?? 3. Chronic A Fib, presently with controlled VR 4. r/o Cardiomyopathy vs Diastolic Dysfx CHF- non-invasive TTE shows preserved EF. 5. Azotemia, CKD III ( Bun/Cr was 36/1.5 at the time of last hospital discharge) 6. Warfarin induced-coagulopathy PLAN: 1. Pulm HTN, and Aortic valve infection. Will review old records from [facility] for any previous Bactermia or Endocarditis present. 2. ID to start empiric Acycolvir. Ongoing Flagyl coverage. 3. Lamictal increased. Check Lamo levels. 4. Continued re-accumulation of bilateral pleural effusions, doubt infectious etiology. Check CR in AM, Oxygen reuirements stable and not increased. 5. Bedside Physical Therapy if neuromental status copnrnue to improve and he follows commands. CCU Objective - Vital Signs / Intake & Output Vital Signs (Last 4 hours): Vital Signs Temp Pulse Resp BP Pulse Ox 10/17/17 08:23 149/56 L 10/17/17 08:04 24 10/17/17 08:00 98.3 F 73 27 H 149/56 L 100 Intake and Output (Last 8hrs): Intake & Output 10/16/17 10/17/17 10/17/17 22:59 06:59 14:59 Intake Total 350 1100 Output Total 1200 780 Balance -850 320 Intake: IV 150 50 Intake, Piggyback 200 Tube Feeding 450 Free Water Flush 200 400 Output: Urine 1200 630 Urethral (Wang) 1200 630 Stool 150 - Physical Exam Physical Exam Limitations: Positive for: Altered Mental Status Head: Positive for: Atraumatic, Normocephalic Pupils: Positive for: PERRL, Sluggish Extroacular Muscles: Positive for: EOMI Conjunctiva: Positive for: Normal. Negative for: Icteric Ears: Positive for: Normal Mouth: Positive for: Moist Mucous Membranes Pharnyx: Negative for: ERYTHEMA Neck: Positive for: Normal Range of Motion. Negative for: JVD Respiratory/Chest: Positive for: Decreased Breath Sounds, Rhonchi (upper airway rhonchi), Tachypneic. Negative for: Accessory Muscle Use, Wheezes Cardiovascular: Positive for: Irregular Rhythm, Peripheal Pulses Present, Tachycardic. Negative for: Murmurs, Normal S1, S2, Rub Abdomen: Positive for: Normal Bowel Sounds. Negative for: Tenderness, Distention, Peritoneal Signs Upper Extremity: Positive for: Edema Lower Extremity: Positive for: Edema, NORMAL PULSES. Negative for: CALF TENDERNESS, Cyanosis Neurological: Positive for: Other (withdraws to deep pain) Skin: Positive for: Warm, Dry. Negative for: Rashes Psychiatric: Positive for: Lethargic - Medications Active Medications: Active Medications Generic Name Dose Route Start Last Admin Trade Name Freq PRN Reason Stop Dose Admin Acetazolamide 250 mg 10/09/17 17:00 10/17/17 08:22 Diamox 250 Mg Tab PO 250 mg BID YUKI Administration Calcium Carbonate 500 mg 09/26/17 08:00 10/17/17 08:23 Oscal PO 500 mg BIDWM YUKI Administration Dimethicone 1 applic 10/07/17 17:00 10/17/17 08:24 Proshield Plus Skin Protectant TOP 1 applic Q8 YUKI Administration Ergocalciferol 1 cap 10/17/17 21:00 Drisdol 50,000 Intl Units Cap PO QD7@2100 YUKI Furosemide 40 mg 10/15/17 17:00 10/17/17 08:23 Lasix IV 40 mg BID YUKI Administration Metronidazole 100 mls @ 100 mls/hr 10/14/17 01:00 10/17/17 08:25 Flagyl 500mg/100ml Ns IVPB 100 mls/hr Q8 YUKI Administration Protocol Acyclovir 500 mg/ Sodium 100 mls @ 100 mls/hr 10/16/17 17:00 10/17/17 08:25 Chloride IV 100 mls/hr Q8 YUKI Administration Protocol Heparin Sodium/Dextrose 25,000 units in 250 mls @ 8 mls/hr 10/16/17 19:15 05/27 02:30 Heparin 25,000 Units/250ml In D5w IV 6 mls/hr .Q24H YUKI Titration Protocol Lactobacillus Acidophilus 1 cap 10/08/17 09:00 10/17/17 08:26 Bacid Acidophilus PO 1 cap BID YUKI Administration Lamotrigine 50 mg 10/16/17 09:00 10/17/17 08:22 Lamictal PO 50 mg Q12 YUKI Administration Levothyroxine Sodium 12.5 mcg 10/09/17 06:30 10/17/17 08:24 Synthroid PO 12.5 mcg DAILY@0630 YUKI Administration Metoprolol Tartrate 5 mg 10/15/17 16:28 10/17/17 04:12 Lopressor IVP 5 mg Q6 YUKI Administration - Patient Studies Lab Studies: Microbiology Studies 10/14/17 13:36 Blood Culture - Preliminary Blood-Thru Central Line NO GROWTH AFTER 48 HOURS 10/14/17 13:36 Urine Culture - Final Urine,Catheterized No Growth (<1,000 CFU/ML) 10/14/17 12:26 Blood Culture - Preliminary Blood-Venous NO GROWTH AFTER 48 HOURS Lab Studies 10/17/17 10/17/17 10/17/17 Range/Units 08:10 06:13 06:13 WBC 7.2 (4.8-10.8) K/uL RBC 2.82 L (4.40-5.90) Mil/uL Hgb 8.3 L (12.0-18.0) g/dL Hct 26.1 L (35.0-51.0) % MCV 92.4 (80.0-94.0) fl MCH 29.2 (27.0-31.0) pg MCHC 31.6 L (33.0-37.0) g/dL RDW 18.0 H (11.5-14.5) % Plt Count 292 (130-400) K/uL ESR (0-20) mm/hr APTT 35.0 D (25.6-37.1) Seconds Sodium 144 (132-148) mmol/l Potassium 4.1 (3.6-5.0) MMOL/L Chloride 110 H (98-107) mmol/L Carbon Dioxide 29 (22-30) mmol/L Anion Gap 9 L (10-20) BUN 43 H (9-20) mg/dl Creatinine 1.3 (0.8-1.5) mg/dl Est GFR ( Amer) > 60 Est GFR (Non-Af Amer) 53 Random Glucose 123 H (75-110) mg/dL Calcium 7.3 L (8.4-10.2) mg/dL Total Bilirubin (0.2-1.3) mg/dl Direct Bilirubin (0.0-0.4) mg/ml AST (17-59) U/L ALT (21-72) U/L Alkaline Phosphatase (38-126) U/L NT-Pro-B Natriuret Pep (0-900) pg/ml Total Protein (6.3-8.2) G/DL Albumin (3.5-5.0) g/dL Globulin (2.2-3.9) gm/dL Albumin/Globulin Ratio (1.0-2.1) Vitamin B6 Vitamin B12 (239-931) pg/mL Free T4 (0.78-2.19) ng/dL TSH 3rd Generation (0.46-4.68) mIU/ML RPR (NONREACTIVE) Lyme Disease Screen index 10/17/17 10/16/17 10/16/17 Range/Units 00:02 16:48 14:00 WBC (4.8-10.8) K/uL RBC (4.40-5.90) Mil/uL Hgb (12.0-18.0) g/dL Hct (35.0-51.0) % MCV (80.0-94.0) fl MCH (27.0-31.0) pg MCHC (33.0-37.0) g/dL RDW (11.5-14.5) % Plt Count (130-400) K/uL ESR (0-20) mm/hr APTT 195.8 H* D 42.4 H (25.6-37.1) Seconds Sodium (132-148) mmol/l Potassium (3.6-5.0) MMOL/L Chloride (98-107) mmol/L Carbon Dioxide (22-30) mmol/L Anion Gap (10-20) BUN (9-20) mg/dl Creatinine (0.8-1.5) mg/dl Est GFR ( Amer) Est GFR (Non-Af Amer) Random Glucose (75-110) mg/dL Calcium (8.4-10.2) mg/dL Total Bilirubin (0.2-1.3) mg/dl Direct Bilirubin (0.0-0.4) mg/ml AST (17-59) U/L ALT (21-72) U/L Alkaline Phosphatase (38-126) U/L NT-Pro-B Natriuret Pep (0-900) pg/ml Total Protein (6.3-8.2) G/DL Albumin (3.5-5.0) g/dL Globulin (2.2-3.9) gm/dL Albumin/Globulin Ratio (1.0-2.1) Vitamin B6 Vitamin B12 (239-931) pg/mL Free T4 (0.78-2.19) ng/dL TSH 3rd Generation (0.46-4.68) mIU/ML RPR (NONREACTIVE) Lyme Disease Screen <0.90 index 10/16/17 10/16/17 10/16/17 Range/Units 13:18 13:18 13:18 WBC (4.8-10.8) K/uL RBC (4.40-5.90) Mil/uL Hgb (12.0-18.0) g/dL Hct (35.0-51.0) % MCV (80.0-94.0) fl MCH (27.0-31.0) pg MCHC (33.0-37.0) g/dL RDW (11.5-14.5) % Plt Count (130-400) K/uL ESR > 120 H (0-20) mm/hr APTT (25.6-37.1) Seconds Sodium (132-148) mmol/l Potassium (3.6-5.0) MMOL/L Chloride (98-107) mmol/L Carbon Dioxide (22-30) mmol/L Anion Gap (10-20) BUN (9-20) mg/dl Creatinine (0.8-1.5) mg/dl Est GFR ( Amer) Est GFR (Non-Af Amer) Random Glucose (75-110) mg/dL Calcium (8.4-10.2) mg/dL Total Bilirubin (0.2-1.3) mg/dl Direct Bilirubin (0.0-0.4) mg/ml AST (17-59) U/L ALT (21-72) U/L Alkaline Phosphatase (38-126) U/L NT-Pro-B Natriuret Pep (0-900) pg/ml Total Protein (6.3-8.2) G/DL Albumin (3.5-5.0) g/dL Globulin (2.2-3.9) gm/dL Albumin/Globulin Ratio (1.0-2.1) Vitamin B6 Vitamin B12 (239-931) pg/mL Free T4 1.19 (0.78-2.19) ng/dL TSH 3rd Generation (0.46-4.68) mIU/ML RPR Nonreactive (NONREACTIVE) Lyme Disease Screen index 10/16/17 10/16/17 10/16/17 Range/Units 13:18 13:18 11:41 WBC (4.8-10.8) K/uL RBC (4.40-5.90) Mil/uL Hgb (12.0-18.0) g/dL Hct (35.0-51.0) % MCV (80.0-94.0) fl MCH (27.0-31.0) pg MCHC (33.0-37.0) g/dL RDW (11.5-14.5) % Plt Count (130-400) K/uL ESR (0-20) mm/hr APTT (25.6-37.1) Seconds Sodium (132-148) mmol/l Potassium (3.6-5.0) MMOL/L Chloride (98-107) mmol/L Carbon Dioxide (22-30) mmol/L Anion Gap (10-20) BUN (9-20) mg/dl Creatinine (0.8-1.5) mg/dl Est GFR ( Amer) Est GFR (Non-Af Amer) Random Glucose (75-110) mg/dL Calcium (8.4-10.2) mg/dL Total Bilirubin 0.1 L (0.2-1.3) mg/dl Direct Bilirubin 0.0 (0.0-0.4) mg/ml AST 27 (17-59) U/L ALT 21 (21-72) U/L Alkaline Phosphatase 77 (38-126) U/L NT-Pro-B Natriuret Pep 2580 H (0-900) pg/ml Total Protein 5.8 L (6.3-8.2) G/DL Albumin 2.2 L (3.5-5.0) g/dL Globulin 3.6 (2.2-3.9) gm/dL Albumin/Globulin Ratio 0.6 L (1.0-2.1) Vitamin B6 TNP Vitamin B12 622 (239-931) pg/mL Free T4 (0.78-2.19) ng/dL TSH 3rd Generation 5.00 H (0.46-4.68) mIU/ML RPR (NONREACTIVE) Lyme Disease Screen index Laboratory Results - last 24 hr 10/16/17 10/16/17 10/16/17 11:41 13:18 13:18 WBC RBC Hgb Hct MCV MCH MCHC RDW Plt Count ESR APTT Sodium Potassium Chloride Carbon Dioxide Anion Gap BUN Creatinine Est GFR ( Amer) Est GFR (Non-Af Amer) Random Glucose Calcium Total Bilirubin 0.1 L Direct Bilirubin 0.0 AST 27 ALT 21 Alkaline Phosphatase 77 NT-Pro-B Natriuret Pep 2580 H Total Protein 5.8 L Albumin 2.2 L Globulin 3.6 Albumin/Globulin Ratio 0.6 L Vitamin B6 TNP Vitamin B12 622 Free T4 TSH 3rd Generation 5.00 H RPR Lyme Disease Screen 10/16/17 10/16/17 10/16/17 13:18 13:18 13:18 WBC RBC Hgb Hct MCV MCH MCHC RDW Plt Count ESR > 120 H APTT Sodium Potassium Chloride Carbon Dioxide Anion Gap BUN Creatinine Est GFR ( Amer) Est GFR (Non-Af Amer) Random Glucose Calcium Total Bilirubin Direct Bilirubin AST ALT Alkaline Phosphatase NT-Pro-B Natriuret Pep Total Protein Albumin Globulin Albumin/Globulin Ratio Vitamin B6 Vitamin B12 Free T4 1.19 TSH 3rd Generation RPR Nonreactive Lyme Disease Screen 10/16/17 10/16/17 10/17/17 14:00 16:48 00:02 WBC RBC Hgb Hct MCV MCH MCHC RDW Plt Count ESR APTT 42.4 H 195.8 H* D Sodium Potassium Chloride Carbon Dioxide Anion Gap BUN Creatinine Est GFR ( Amer) Est GFR (Non-Af Amer) Random Glucose Calcium Total Bilirubin Direct Bilirubin AST ALT Alkaline Phosphatase NT-Pro-B Natriuret Pep Total Protein Albumin Globulin Albumin/Globulin Ratio Vitamin B6 Vitamin B12 Free T4 TSH 3rd Generation RPR Lyme Disease Screen <0.90 10/17/17 10/17/17 10/17/17 06:13 06:13 08:10 WBC 7.2 RBC 2.82 L Hgb 8.3 L Hct 26.1 L MCV 92.4 MCH 29.2 MCHC 31.6 L RDW 18.0 H Plt Count 292 ESR APTT 35.0 D Sodium 144 Potassium 4.1 Chloride 110 H Carbon Dioxide 29 Anion Gap 9 L BUN 43 H Creatinine 1.3 Est GFR ( Amer) > 60 Est GFR (Non-Af Amer) 53 Random Glucose 123 H Calcium 7.3 L Total Bilirubin Direct Bilirubin AST ALT Alkaline Phosphatase NT-Pro-B Natriuret Pep Total Protein Albumin Globulin Albumin/Globulin Ratio Vitamin B6 Vitamin B12 Free T4 TSH 3rd Generation RPR Lyme Disease Screen Fingerstick Blood Sugar Results: 83 Review of Systems - Review of Systems Systems not reviewed;Unavailable: Altered Mental Status
--- NOTE | 2017-10-17 15:13 | CP.PCM.PN ---
Subjective - Date & Time of Evaluation Date of Evaluation: 10/17/17 Time of Evaluation: 09:00 - Subjective Subjective: F/U Respiratory failure. Pt lethargic. Objective - Vital Signs/Intake and Output Vital Signs (last 24 hours): Temp Pulse Resp BP Pulse Ox 97.4 F L 81 27 H 147/57 L 98 10/17/17 12:00 10/17/17 12:00 10/17/17 14:13 10/17/17 12:00 10/17/17 12:00 Intake and Output: 10/17/17 10/17/17 06:59 18:59 Intake Total 1300 Output Total 1980 Balance -680 - Medications Medications: Current Medications Acetazolamide (Diamox 250 Mg Tab) 250 mg PO BID [facility] Last Admin: 10/17/17 08:22 Dose: 250 mg Calcium Carbonate (Oscal) 500 mg PO BIDWM [facility] Last Admin: 10/17/17 08:23 Dose: 500 mg Dimethicone (Proshield Plus Skin Protectant) 1 applic TOP Q8 [facility] Last Admin: 10/17/17 08:24 Dose: 1 applic Ergocalciferol (Drisdol 50,000 Intl Units Cap) 1 cap PO QD7@2100 YUKI Furosemide (Lasix) 40 mg IV BID [facility] Last Admin: 10/17/17 08:23 Dose: 40 mg Metronidazole (Flagyl 500mg/100ml Ns) 100 mls @ 100 mls/hr IVPB Q8 YUKI PRN Reason: Protocol Last Admin: 10/17/17 08:25 Dose: 100 mls/hr Acyclovir 500 mg/ Sodium (Chloride) 100 mls @ 100 mls/hr IV Q8 YUKI PRN Reason: Protocol Last Admin: 10/17/17 08:25 Dose: 100 mls/hr Heparin Sodium/Dextrose (Heparin 25,000 Units/250ml In D5w) 25,000 units in 250 mls @ 8 mls/hr IV .Q24H YUKI PRN Reason: Protocol Last Titration: 10/17/17 02:30 Dose: 6 mls/hr Lactobacillus Acidophilus (Bacid Acidophilus) 1 cap PO BID [facility] Last Admin: 10/17/17 08:26 Dose: 1 cap Lamotrigine (Lamictal) 50 mg PO Q12 [facility] Last Admin: 10/17/17 08:22 Dose: 50 mg Levothyroxine Sodium (Synthroid) 12.5 mcg PO DAILY@0630 [facility] Last Admin: 10/17/17 08:24 Dose: 12.5 mcg Metoprolol Tartrate (Lopressor) 5 mg IVP Q6 [facility] Last Admin: 10/17/17 04:12 Dose: 5 mg - Labs Labs: 10/17/17 06:13 10/17/17 06:13 PT 17.4 Seconds (9.8-13.1) H 10/16/17 09:20 INR 1.6 (0.9-1.2) H 10/16/17 09:20 APTT 35.0 Seconds (25.6-37.1) D 10/17/17 08:10 - Constitutional Appears: Chronically Ill - Eye Exam Eye Exam: Normal appearance - ENT Exam ENT Exam: Normal Exam Additional comments: High flow O2 - Neck Exam Neck Exam: Normal Inspection - Respiratory Exam Respiratory Exam: Decreased Breath Sounds (at bases) - Cardiovascular Exam Cardiovascular Exam: Irregular Rhythm - GI/Abdominal Exam GI & Abdominal Exam: Soft, Normal Bowel Sounds - Extremities Exam Additional comments: Edema all extremities. - Back Exam Additional comments: DTI Sacrum - Neurological Exam Additional comments: Lethargic, non verbal, generalized weakness. - Skin Skin Exam: Warm Assessment and Plan (1) Acute respiratory failure with hypoxia Status: Acute (2) Altered mental status Status: Acute (3) Pleural effusion, bilateral Status: Acute (4) Hx of seizure disorder Status: Chronic (5) A-fib Status: Chronic (6) CANDELARIA (acute kidney injury) Status: Acute (7) Anemia Status: Chronic - Assessment and Plan (Free Text) Plan: Continue hhigh flow NC, Pt converted to NSR after cardiovesion yesterday, CXR showed reaccumulating right fissural fluid, small left pleural effusion.continue Flagyl, Acyclovir, Lopressor, Cardizem and rest of Tx., Pulmonary Sport bed to increase bronchial toilette. ICU Time: 37 min.
[2017-10-17] MEDS: Enoxaparin 80 mg Syringe SC SCH (20:54)
[2017-10-17] MEDS ORDERED: Ergocalciferol 50,000 Intl Units Cap PO SCH (21:00)
--- NOTE | 2017-10-17 23:50 | CP.PCM.PN ---
Subjective - Date & Time of Evaluation Date of Evaluation: 10/17/17 Time of Evaluation: 21:40 - Subjective Subjective: Patient is encephalopathic, he is not responsive, except by non vergrimacing to pain. He has no seizures. He is on Lamictal 50 mg Q 12 hrs. Objective - Vital Signs/Intake and Output Vital Signs (last 24 hours): Temp Pulse Resp BP Pulse Ox 97.5 F L 83 29 H 138/88 100 10/17/17 16:00 10/17/17 23:03 10/17/17 20:54 10/17/17 23:03 10/17/17 20:54 Intake and Output: 10/17/17 10/18/17 18:59 06:59 Intake Total 200 Output Total 1500 0 Balance -1500 200 - Medications Medications: Current Medications Acetazolamide (Diamox 250 Mg Tab) 250 mg PO BID [facility] Last Admin: 10/17/17 17:09 Dose: 250 mg Calcium Carbonate (Oscal) 500 mg PO BIDWM [facility] Last Admin: 10/17/17 17:12 Dose: 500 mg Cholecalciferol (Vitamin D) 5,000 iu PO DAILY [facility] Diltiazem HCl (Cardizem) 30 mg PO Q6H [facility] Last Admin: 10/17/17 20:54 Dose: 30 mg Dimethicone (Proshield Plus Skin Protectant) 1 applic TOP Q8 [facility] Last Admin: 10/17/17 17:12 Dose: 1 applic Enoxaparin Sodium (Lovenox) 80 mg SC Q12 YUKI PRN Reason: Protocol Last Admin: 10/17/17 20:54 Dose: 80 mg Furosemide (Lasix) 40 mg IV BID [facility] Last Admin: 10/17/17 17:10 Dose: 40 mg Metronidazole (Flagyl 500mg/100ml Ns) 100 mls @ 100 mls/hr IVPB Q8 YUKI PRN Reason: Protocol Last Admin: 10/17/17 17:09 Dose: 100 mls/hr Acyclovir 500 mg/ Sodium (Chloride) 100 mls @ 100 mls/hr IV Q8 YUKI PRN Reason: Protocol Last Admin: 10/17/17 17:08 Dose: 100 mls/hr Lactobacillus Acidophilus (Bacid Acidophilus) 1 cap PO BID [facility] Last Admin: 10/17/17 17:07 Dose: 1 cap Lamotrigine (Lamictal) 50 mg PO Q12 [facility] Last Admin: 10/17/17 20:52 Dose: 50 mg Levothyroxine Sodium (Synthroid) 12.5 mcg PO DAILY@0630 [facility] Last Admin: 10/17/17 08:24 Dose: 12.5 mcg Metoprolol Tartrate (Lopressor) 5 mg IVP Q6 [facility] Last Admin: 10/17/17 23:03 Dose: 5 mg - Labs Labs: 10/17/17 06:13 10/17/17 06:13 PT 17.4 Seconds (9.8-13.1) H 10/16/17 09:20 INR 1.6 (0.9-1.2) H 10/16/17 09:20 APTT 35.0 Seconds (25.6-37.1) D 10/17/17 08:10 Assessment and Plan (1) CANDELARIA (acute kidney injury) Status: Acute (2) Acute respiratory failure Status: Acute (3) Altered mental status Status: Acute (4) Pleural effusion, bilateral Status: Acute (5) Pneumonia Status: Acute (6) Seizure disorder Status: Suspected (7) Encephalopathy Status: Acute
--- NOTE | 2017-10-18 00:22 | CP.PCM.PN ---
Subjective - Date & Time of Evaluation Date of Evaluation: 10/17/17 Time of Evaluation: 18:00 - Subjective Subjective: opening eyes spontaeously today HR in NSR with frequent PAC's s/p STEVEN/CV yesterday Objective - Vital Signs/Intake and Output Vital Signs (last 24 hours): Temp Pulse Resp BP Pulse Ox 97.5 F L 83 29 H 138/88 100 10/17/17 16:00 10/17/17 23:03 10/17/17 20:54 10/17/17 23:03 10/17/17 20:54 Intake and Output: 10/17/17 10/18/17 18:59 06:59 Intake Total 200 Output Total 1500 0 Balance -1500 200 - Medications Medications: Current Medications Acetazolamide (Diamox 250 Mg Tab) 250 mg PO BID [facility] Last Admin: 10/17/17 17:09 Dose: 250 mg Calcium Carbonate (Oscal) 500 mg PO BIDWM [facility] Last Admin: 10/17/17 17:12 Dose: 500 mg Cholecalciferol (Vitamin D) 5,000 iu PO DAILY [facility] Diltiazem HCl (Cardizem) 30 mg PO Q6H [facility] Last Admin: 10/17/17 20:54 Dose: 30 mg Dimethicone (Proshield Plus Skin Protectant) 1 applic TOP Q8 [facility] Last Admin: 10/17/17 17:12 Dose: 1 applic Enoxaparin Sodium (Lovenox) 80 mg SC Q12 YUKI PRN Reason: Protocol Last Admin: 10/17/17 20:54 Dose: 80 mg Furosemide (Lasix) 40 mg IV BID [facility] Last Admin: 10/17/17 17:10 Dose: 40 mg Metronidazole (Flagyl 500mg/100ml Ns) 100 mls @ 100 mls/hr IVPB Q8 YUKI PRN Reason: Protocol Last Admin: 10/17/17 17:09 Dose: 100 mls/hr Acyclovir 500 mg/ Sodium (Chloride) 100 mls @ 100 mls/hr IV Q8 YUKI PRN Reason: Protocol Last Admin: 10/17/17 17:08 Dose: 100 mls/hr Lactobacillus Acidophilus (Bacid Acidophilus) 1 cap PO BID [facility]I Last Admin: 10/17/17 17:07 Dose: 1 cap Lamotrigine (Lamictal) 50 mg PO Q12 [facility]I Last Admin: 10/17/17 20:52 Dose: 50 mg Levothyroxine Sodium (Synthroid) 12.5 mcg PO DAILY@0630 [facility] Last Admin: 10/17/17 08:24 Dose: 12.5 mcg Metoprolol Tartrate (Lopressor) 5 mg IVP Q6 [facility] Last Admin: 10/17/17 23:03 Dose: 5 mg - Labs Labs: 10/17/17 06:13 10/17/17 06:13 PT 17.4 Seconds (9.8-13.1) H 10/16/17 09:20 INR 1.6 (0.9-1.2) H 10/16/17 09:20 APTT 35.0 Seconds (25.6-37.1) D 10/17/17 08:10 - Constitutional Appears: Confused - Head Exam Head Exam: ATRAUMATIC, NORMAL INSPECTION, NORMOCEPHALIC - Eye Exam Eye Exam: EOMI, Normal appearance, PERRL Pupil Exam: NORMAL ACCOMODATION, PERRL - ENT Exam ENT Exam: Mucous Membranes Moist, Normal Exam - Neck Exam Neck Exam: Full ROM, Normal Inspection. absent: Lymphadenopathy - Respiratory Exam Respiratory Exam: Rales, Rhonchi, NORMAL BREATHING PATTERN - Cardiovascular Exam Cardiovascular Exam: REGULAR RHYTHM, RRR, +S1, +S2, Murmur - GI/Abdominal Exam GI & Abdominal Exam: Soft, Normal Bowel Sounds. absent: Tenderness - Extremities Exam Extremities Exam: Full ROM, Normal Capillary Refill, Normal Inspection. absent : Joint Swelling, Pedal Edema - Back Exam Back Exam: NORMAL INSPECTION - Neurological Exam Neurological Exam: Altered, Awake - Skin Skin Exam: Dry, Intact, Normal Color, Warm Assessment and Plan (1) A-fib Assessment & Plan: s/p STEVEN/CV in NSR cont IV heparin for AC cont BB add ccb Status: Chronic (2) Acute on chronic diastolic (congestive) heart failure Assessment & Plan: add CCB Status: Chronic (3) Acute respiratory failure with hypoxia Status: Acute (4) Altered mental status Status: Acute (5) HTN (hypertension) Status: Deleted (6) Seizure disorder Status: Chronic (7) CANDELARIA (acute kidney injury) Status: Acute (8) Encephalopathy Status: Acute (9) Hypothermia Status: Deleted (10) Pleural effusion, bilateral Status: Acute (11) Supratherapeutic international normalized ratio (INR) Status: Acute (12) Acute decompensated heart failure Status: Acute (13) Atrial fibrillation with RVR Status: Acute
[2017-10-18] MEDS: Acyclovir 500 MG in Sodium Chloride 0.9% 100 ML IV SCH ×3 (00:52→18:58)
[2017-10-18] MEDS: metroNIDAZOLE 500mg/100ml NS 100 ML IVPB SCH ×3 (00:52→16:56)
[2017-10-18] MEDS: Proshield Plus GEL TOP SCH ×3 (00:53→18:58)
[2017-10-18] MEDS: Metoprolol 1 mg/ml Inj IVP SCH ×5 (04:14→21:19)
[2017-10-18 05:56] LABS: ABG ALLEN TEST YES; ARTERIAL BLOOD GAS HCO3 28.4 mmol/L (21-28); ARTERIAL BLOOD GAS HEMOGLOBIN 9.6 g/dL (11.7-17.4); ARTERIAL BLOOD GAS O2 CAPACITY 13.2 mL/dL (16-24); ARTERIAL BLOOD GAS O2 CONTENT 12.9 ML/dL (15-23); ARTERIAL BLOOD GAS O2 SAT 97.9 % (95-98); ARTERIAL BLOOD GAS PCO2 47 mm/Hg (35-45); ARTERIAL BLOOD GAS PH 7.41 (7.35-7.45); ARTERIAL BLOOD GAS PO2 78 mm/Hg (80-100); ARTERIAL BLOOD GAS TCO2 31.2 mmol/L (22-28)
[2017-10-18] MEDS: Levothyroxine 25 MCG TAB PO SCH (05:59)
[2017-10-18 06:10] LABS: HEMOGLOBIN 8.1 g/dL (12.0-18.0); MEAN CELL VOLUME 91.7 fl (80.0-94.0); MEAN CORPUSCULAR HEMOGLOBIN 28.5 pg (27.0-31.0); MEAN CORPUSCULAR HGB CONC 31.1 g/dL (33.0-37.0); RBC 2.85 Mil/uL (4.40-5.90); RED CELL DISTRIBUTION WIDTH 18.2 % (11.5-14.5); WHITE BLOOD COUNT 9.5 K/uL (4.8-10.8)
[2017-10-18 06:24] LABS: BLOOD UREA NITROGEN 37 mg/dl (9-20); CALCIUM 7.7 mg/dL (8.4-10.2); GFR AFRICAN-AMERICAN > 60; GFR NON-AFRICAN AMERICAN 58
[2017-10-18] MEDS: Cholecalciferol 1,000 INTLU TAB PO SCH (08:24)
[2017-10-18] MEDS: Enoxaparin 80 mg Syringe SC SCH ×2 (08:26→21:19)
[2017-10-18] MEDS ORDERED: Chlorhexidine Gluconate 1 APPL/PKT TP ONE (08:41)
[2017-10-18] MEDS: Lactobacillus Acidophilus 500 MU Cap PO SCH ×2 (08:41→16:59)
--- NOTE | 2017-10-18 08:54 | RAD ---
HISTORY: hx of pleural effusion COMPARISON: Portable chest 10/16/2017. FINDINGS: Right PICC and permanent pacemaker again evident. Nasogastric tube not significantly changed in position. Minimal new pleural effusion is suspected at the right base laterally. Mild left pleural effusions unchanged. Underlying atelectasis or infiltrates are not excluded the left greater than right lung bases. CARDIOVASCULAR: Cardiac size appears stable with no definite pulmonary vascular derangement appreciated. No gross pneumothorax bilaterally. OSSEOUS STRUCTURES: No significant abnormalities. VISUALIZED UPPER ABDOMEN: Normal. OTHER FINDINGS: None. IMPRESSION: Interval increase in airspace disease at the right base is suspected though mild with trace right pleural effusion in question. Mild left pleural effusion unchanged.
--- NOTE | 2017-10-18 10:28 | CP.CCUPN ---
CCU Subjective - Physician Review Subjective (Free Text): Uneventful overnight again, eyes open spontaneous;y briefly this AM, but not consistently following simple commands nor is he interactive, nor spontaneously conversant. Remains on 50% oxygen and 30 LPM on HFNC. Other vitals and I/O's reviewed. No fever spikes; fluid balance negative 1.0 Liters last 24H. ROS: Unobtainable due to lethargy, non verbal. No other pertinent negs or positives on 10+ system review. PMSFH: All other Nursing and physician documentation reviewed to date; no new pertinent info noted relevant to current medical problems. CXR: (my interp)- no worse nor increase in effusions bilaterally. IMPRESSION / MAJOR PROBLEMS NOW: 1. Acute Resp ( Hypoxemic) failure 2 bilat effusions, and compressive atelectasis, unclear if any superimposed pneumonitic process. 2. Encephalopathy: etiology unclear, ?? metabolic vs cryptogenic seizures vs ?? CVA?? 3. Chronic A Fib, presently with controlled VR 4. r/o Cardiomyopathy vs Diastolic Dysfx CHF- non-invasive TTE shows preserved EF. 5. Azotemia, CKD III ( Bun/Cr was 36/1.5 at the time of last hospital discharge) 6. Warfarin induced-coagulopathy PLAN: 1. No need for repeat thoracentesis today.Oxygen requirements stable and not increased. 2. 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 3. ID: empiric Acycolvir. Ongoing Flagyl coverage. 4. Lamictal increased. Lamo levels pending.. 5. Bedside Physical Therapy if neuromental status continues to improve and he follows commands. 6. Pulm Sport bed placed and chest Physiotherapy Q4H as tolerated for now. CCU Objective - Vital Signs / Intake & Output Vital Signs (Last 4 hours): Vital Signs Temp Pulse Resp BP Pulse Ox 10/18/17 08:40 22 10/18/17 08:28 66 144/77 10/18/17 08:25 144/77 10/18/17 08:00 98.2 F 65 20 137/75 100 10/18/17 06:15 25 H Intake and Output (Last 8hrs): Intake & Output 10/17/17 10/18/17 10/18/17 22:59 06:59 14:59 Intake Total 200 1100 104 Output Total 1500 1550 Balance -1300 -450 104 Intake: IV 4 Intake, Piggyback 200 Oral 500 Tube Feeding 100 Free Water Flush 200 400 Output: Urine 1500 1550 Urethral (Wang) 1500 1550 Stool 0 - Physical Exam Physical Exam Limitations: Positive for: Altered Mental Status Head: Positive for: Atraumatic, Normocephalic Pupils: Positive for: PERRL, Sluggish Extroacular Muscles: Positive for: EOMI Conjunctiva: Positive for: Normal. Negative for: Icteric Ears: Positive for: Normal Mouth: Positive for: Moist Mucous Membranes Pharnyx: Negative for: ERYTHEMA Neck: Positive for: Normal Range of Motion. Negative for: JVD Respiratory/Chest: Positive for: Decreased Breath Sounds, Rhonchi (upper airway rhonchi), Tachypneic. Negative for: Accessory Muscle Use, Wheezes Cardiovascular: Positive for: Irregular Rhythm, Peripheal Pulses Present, Tachycardic. Negative for: Murmurs, Normal S1, S2, Rub Abdomen: Positive for: Normal Bowel Sounds. Negative for: Tenderness, Distention, Peritoneal Signs Upper Extremity: Positive for: Edema Lower Extremity: Positive for: Edema, NORMAL PULSES. Negative for: CALF TENDERNESS, Cyanosis Neurological: Positive for: Other (withdraws to deep pain) Skin: Positive for: Warm, Dry. Negative for: Rashes Psychiatric: Positive for: Lethargic - Medications Active Medications: Active Medications Generic Name Dose Route Start Last Admin Trade Name Freq PRN Reason Stop Dose Admin Acetazolamide 250 mg 10/09/17 17:00 10/18/17 08:28 Diamox 250 Mg Tab PO 250 mg BID YUKI Administration Calcium Carbonate 500 mg 09/26/17 08:00 10/18/17 08:26 Oscal PO 500 mg BIDWM YUKI Administration Cholecalciferol 5,000 iu 10/18/17 09:00 10/18/17 08:24 Vitamin D PO 5,000 iu DAILY YUKI Administration Diltiazem HCl 30 mg 10/18/17 03:00 10/18/17 08:28 Cardizem PO 30 mg 0300,0900,1500,2100 YUKI Administration Dimethicone 1 applic 10/07/17 17:00 10/18/17 00:53 Proshield Plus Skin Protectant TOP 1 applic Q8 YUKI Administration Enoxaparin Sodium 80 mg 10/17/17 21:00 10/18/17 08:26 Lovenox SC 80 mg Q12 YUKI Administration Protocol Furosemide 40 mg 10/15/17 17:00 10/18/17 08:25 Lasix IV 40 mg BID YUKI Administration Metronidazole 100 mls @ 100 mls/hr 10/14/17 01:00 10/18/17 00:52 Flagyl 500mg/100ml Ns IVPB 100 mls/hr Q8 YUKI Administration Protocol Acyclovir 500 mg/ Sodium 100 mls @ 100 mls/hr 10/16/17 17:00 10/18/17 08:27 Chloride IV 100 mls/hr Q8 YUKI Administration Protocol Lactobacillus Acidophilus 1 cap 10/08/17 09:00 10/18/17 08:41 Bacid Acidophilus PO 1 cap BID YUKI Administration Lamotrigine 50 mg 10/16/17 09:00 10/18/17 08:25 Lamictal PO 50 mg Q12 YUKI Administration Levothyroxine Sodium 12.5 mcg 10/09/17 06:30 10/18/17 05:59 Synthroid PO 12.5 mcg DAILY@0630 YUKI Administration Metoprolol Tartrate 5 mg 10/15/17 16:28 10/18/17 04:14 Lopressor IVP 5 mg Q6 YUKI Administration - Patient Studies Lab Studies: Microbiology Studies 10/14/17 13:36 Blood Culture - Preliminary Blood-Thru Central Line NO GROWTH AFTER 3 DAYS 10/14/17 12:26 Blood Culture - Preliminary Blood-Venous NO GROWTH AFTER 3 DAYS Lab Studies 10/18/17 10/18/17 10/18/17 Range/Units 06:03 06:03 05:05 WBC 9.5 (4.8-10.8) K/uL RBC 2.85 L (4.40-5.90) Mil/uL Hgb 8.1 L (12.0-18.0) g/dL Hct 26.1 L (35.0-51.0) % MCV 91.7 (80.0-94.0) fl MCH 28.5 (27.0-31.0) pg MCHC 31.1 L (33.0-37.0) g/dL RDW 18.2 H (11.5-14.5) % Plt Count 287 (130-400) K/uL pCO2 47 H (35-45) mm/Hg pO2 78 L (80-100) mm/Hg HCO3 28.4 H (21-28) mmol/L ABG pH 7.41 (7.35-7.45) ABG Total CO2 31.2 H (22-28) mmol/L ABG O2 Saturation 97.9 (95-98) % ABG O2 Content 12.9 L (15-23) ML/dL ABG Base Excess 4.5 H (-2.0-3.0) mmol/L ABG Hemoglobin 9.6 L (11.7-17.4) g/dL ABG Carboxyhemoglobin 2.0 H (0.5-1.5) % POC ABG HHb (Measured) 2.0 (0.0-5.0) % ABG Methemoglobin 1.1 (0.0-3.0) % ABG O2 Capacity 13.2 L (16-24) mL/dL Broderick Test Yes A-a O2 Difference 220.0 mm/Hg Hgb O2 Saturation 94.9 L (95.0-98.0) % Liter Flow 30 FiO2 50.0 % Sodium 144 (132-148) mmol/l Potassium 3.9 (3.6-5.0) MMOL/L Chloride 108 H (98-107) mmol/L Carbon Dioxide 30 (22-30) mmol/L Anion Gap 10 (10-20) BUN 37 H (9-20) mg/dl Creatinine 1.2 (0.8-1.5) mg/dl Est GFR ( Amer) > 60 Est GFR (Non-Af Amer) 58 Random Glucose 108 (75-110) mg/dL Calcium 7.7 L (8.4-10.2) mg/dL Whole Blood Lead (<5) mcg/dL HSV I IgG Ab index HSV II IgG index 10/16/17 10/16/17 Range/Units 14:00 13:18 WBC (4.8-10.8) K/uL RBC (4.40-5.90) Mil/uL Hgb (12.0-18.0) g/dL Hct (35.0-51.0) % MCV (80.0-94.0) fl MCH (27.0-31.0) pg MCHC (33.0-37.0) g/dL RDW (11.5-14.5) % Plt Count (130-400) K/uL pCO2 (35-45) mm/Hg pO2 (80-100) mm/Hg HCO3 (21-28) mmol/L ABG pH (7.35-7.45) ABG Total CO2 (22-28) mmol/L ABG O2 Saturation (95-98) % ABG O2 Content (15-23) ML/dL ABG Base Excess (-2.0-3.0) mmol/L ABG Hemoglobin (11.7-17.4) g/dL ABG Carboxyhemoglobin (0.5-1.5) % POC ABG HHb (Measured) (0.0-5.0) % ABG Methemoglobin (0.0-3.0) % ABG O2 Capacity (16-24) mL/dL Broderick Test A-a O2 Difference mm/Hg Hgb O2 Saturation (95.0-98.0) % Liter Flow FiO2 % Sodium (132-148) mmol/l Potassium (3.6-5.0) MMOL/L Chloride (98-107) mmol/L Carbon Dioxide (22-30) mmol/L Anion Gap (10-20) BUN (9-20) mg/dl Creatinine (0.8-1.5) mg/dl Est GFR ( Amer) Est GFR (Non-Af Amer) Random Glucose (75-110) mg/dL Calcium (8.4-10.2) mg/dL Whole Blood Lead 2 (<5) mcg/dL HSV I IgG Ab <0.90 index HSV II IgG <0.90 index Laboratory Results - last 24 hr 10/16/17 10/16/17 10/18/17 13:18 14:00 05:05 WBC RBC Hgb Hct MCV MCH MCHC RDW Plt Count pCO2 47 H pO2 78 L HCO3 28.4 H ABG pH 7.41 ABG Total CO2 31.2 H ABG O2 Saturation 97.9 ABG O2 Content 12.9 L ABG Base Excess 4.5 H ABG Hemoglobin 9.6 L ABG Carboxyhemoglobin 2.0 H POC ABG HHb (Measured) 2.0 ABG Methemoglobin 1.1 ABG O2 Capacity 13.2 L Broderick Test Yes A-a O2 Difference 220.0 Hgb O2 Saturation 94.9 L Liter Flow 30 FiO2 50.0 Sodium Potassium Chloride Carbon Dioxide Anion Gap BUN Creatinine Est GFR ( Amer) Est GFR (Non-Af Amer) Random Glucose Calcium Whole Blood Lead 2 HSV I IgG Ab <0.90 HSV II IgG <0.90 10/18/17 10/18/17 06:03 06:03 WBC 9.5 RBC 2.85 L Hgb 8.1 L Hct 26.1 L MCV 91.7 MCH 28.5 MCHC 31.1 L RDW 18.2 H Plt Count 287 pCO2 pO2 HCO3 ABG pH ABG Total CO2 ABG O2 Saturation ABG O2 Content ABG Base Excess ABG Hemoglobin ABG Carboxyhemoglobin POC ABG HHb (Measured) ABG Methemoglobin ABG O2 Capacity Broderick Test A-a O2 Difference Hgb O2 Saturation Liter Flow FiO2 Sodium 144 Potassium 3.9 Chloride 108 H Carbon Dioxide 30 Anion Gap 10 BUN 37 H Creatinine 1.2 Est GFR ( Amer) > 60 Est GFR (Non-Af Amer) 58 Random Glucose 108 Calcium 7.7 L Whole Blood Lead HSV I IgG Ab HSV II IgG Fingerstick Blood Sugar Results: 83 Review of Systems - Review of Systems Systems not reviewed;Unavailable: Altered Mental Status
--- NOTE | 2017-10-18 13:17 | CP.PCM.PN ---
Subjective - Date & Time of Evaluation Date of Evaluation: 10/18/17 Time of Evaluation: 09:00 - Subjective Subjective: remains nonverbal Has + aortic vegetation all cultures thus far neg from blood unknown if ever treated for endocarditis in past will reculture and start IV Vanco Objective - Vital Signs/Intake and Output Vital Signs (last 24 hours): Temp Pulse Resp BP Pulse Ox 97.9 F 70 20 100/47 L 100 10/18/17 12:00 10/18/17 12:00 10/18/17 12:00 10/18/17 12:00 10/18/17 12:00 Intake and Output: 10/18/17 10/18/17 06:59 18:59 Intake Total 1300 204 Output Total 1550 Balance -250 204 - Medications Medications: Current Medications Acetazolamide (Diamox 250 Mg Tab) 250 mg PO BID [facility] Last Admin: 10/18/17 08:28 Dose: 250 mg Calcium Carbonate (Oscal) 500 mg PO BIDWM [facility] Last Admin: 10/18/17 08:26 Dose: 500 mg Cholecalciferol (Vitamin D) 5,000 iu PO DAILY [facility] Last Admin: 10/18/17 08:24 Dose: 5,000 iu Diltiazem HCl (Cardizem) 30 mg PO 0300,0900,1500,2100 [facility] Last Admin: 10/18/17 08:28 Dose: 30 mg Dimethicone (Proshield Plus Skin Protectant) 1 applic TOP Q8 [facility] Last Admin: 10/18/17 10:26 Dose: Not Given Enoxaparin Sodium (Lovenox) 80 mg SC Q12 [facility] PRN Reason: Protocol Last Admin: 10/18/17 08:26 Dose: 80 mg Furosemide (Lasix) 40 mg IV BID [facility] Last Admin: 10/18/17 08:25 Dose: 40 mg Metronidazole (Flagyl 500mg/100ml Ns) 100 mls @ 100 mls/hr IVPB Q8 [facility] PRN Reason: Protocol Last Admin: 10/18/17 10:20 Dose: 100 mls/hr Acyclovir 500 mg/ Sodium (Chloride) 100 mls @ 100 mls/hr IV Q8 YUKI PRN Reason: Protocol Last Admin: 10/18/17 08:27 Dose: 100 mls/hr Lactobacillus Acidophilus (Bacid Acidophilus) 1 cap PO BID [facility] Last Admin: 10/18/17 08:41 Dose: 1 cap Lamotrigine (Lamictal) 50 mg PO Q12 [facility] Last Admin: 10/18/17 08:25 Dose: 50 mg Levothyroxine Sodium (Synthroid) 12.5 mcg PO DAILY@0630 [facility] Last Admin: 10/18/17 05:59 Dose: 12.5 mcg Metoprolol Tartrate (Lopressor) 5 mg IVP Q6 [facility] Last Admin: 10/18/17 10:28 Dose: Not Given - Labs Labs: 10/18/17 06:03 10/18/17 06:03 PT 17.4 Seconds (9.8-13.1) H 10/16/17 09:20 INR 1.6 (0.9-1.2) H 10/16/17 09:20 APTT 35.0 Seconds (25.6-37.1) D 10/17/17 08:10 - Constitutional Appears: Non-toxic, No Acute Distress, Confused, Chronically Ill - Head Exam Head Exam: NORMOCEPHALIC - Eye Exam Eye Exam: absent: Scleral icterus - ENT Exam ENT Exam: Mucous Membranes Dry - Neck Exam Neck Exam: absent: Lymphadenopathy - Respiratory Exam Respiratory Exam: Decreased Breath Sounds - Cardiovascular Exam Cardiovascular Exam: REGULAR RHYTHM - GI/Abdominal Exam GI & Abdominal Exam: Distended, Soft - Rectal Exam Rectal Exam: Deferred - Exam Exam: NORMAL INSPECTION - Extremities Exam Extremities Exam: absent: Calf Tenderness, Pedal Edema, Tenderness - Back Exam Back Exam: absent: CVA tenderness (L), CVA tenderness (R) - Neurological Exam Neurological Exam: Altered Assessment and Plan (1) CANDELARIA (acute kidney injury) Status: Acute (2) Acute respiratory failure Status: Acute (3) Altered mental status Status: Acute (4) Diastolic CHF, acute on chronic Status: Acute (5) Pleural effusion, bilateral Status: Acute (6) Pneumonia Status: Acute (7) Aortic valve vegetation Status: Acute - Assessment and Plan (Free Text) Assessment: add vanco monitor renal function rx for 6 ? weeks
--- NOTE | 2017-10-18 22:39 | CP.PCM.PN ---
Subjective - Date & Time of Evaluation Date of Evaluation: 10/18/17 Time of Evaluation: 11:20 - Subjective Subjective: F/U Respiratory Failure Eyes open , no response to verbal stimuli Objective - Vital Signs/Intake and Output Vital Signs (last 24 hours): Temp Pulse Resp BP Pulse Ox 98.1 F 74 22 111/48 L 100 10/18/17 16:00 10/18/17 22:28 10/18/17 22:01 10/18/17 21:19 10/18/17 20:11 Intake and Output: 10/18/17 10/19/17 18:59 06:59 Intake Total 1616 Output Total 1000 Balance 616 - Medications Medications: Current Medications Acetazolamide (Diamox 250 Mg Tab) 250 mg PO BID [facility] Last Admin: 10/18/17 16:54 Dose: 250 mg Calcium Carbonate (Oscal) 500 mg PO BIDWM [facility] Last Admin: 10/18/17 16:58 Dose: 500 mg Cholecalciferol (Vitamin D) 5,000 iu PO DAILY [facility] Last Admin: 10/18/17 08:24 Dose: 5,000 iu Diltiazem HCl (Cardizem) 30 mg PO 0300,0900,1500,2100 [facility] Last Admin: 10/18/17 20:11 Dose: 30 mg Dimethicone (Proshield Plus Skin Protectant) 1 applic TOP Q8 [facility] Last Admin: 10/18/17 18:58 Dose: 1 applic Enoxaparin Sodium (Lovenox) 80 mg SC Q12 YUKI PRN Reason: Protocol Last Admin: 10/18/17 21:19 Dose: 80 mg Furosemide (Lasix) 40 mg IV BID [facility] Last Admin: 10/18/17 16:56 Dose: 40 mg Metronidazole (Flagyl 500mg/100ml Ns) 100 mls @ 100 mls/hr IVPB Q8 YUKI PRN Reason: Protocol Last Admin: 10/18/17 16:56 Dose: 100 mls/hr Acyclovir 500 mg/ Sodium (Chloride) 100 mls @ 100 mls/hr IV Q8 YUKI PRN Reason: Protocol Last Admin: 10/18/17 18:58 Dose: 100 mls/hr Vancomycin HCl 1 gm/ Sodium (Chloride) 250 mls @ 250 mls/hr IVPB Q24H YUKI PRN Reason: Protocol Last Admin: 10/18/17 16:40 Dose: 250 mls/hr Lactobacillus Acidophilus (Bacid Acidophilus) 1 cap PO BID [facility] Last Admin: 10/18/17 16:59 Dose: 1 cap Lamotrigine (Lamictal) 50 mg PO Q12 [facility] Last Admin: 10/18/17 21:18 Dose: 50 mg Levothyroxine Sodium (Synthroid) 12.5 mcg PO DAILY@0630 [facility] Last Admin: 10/18/17 05:59 Dose: 12.5 mcg Metoprolol Tartrate (Lopressor) 5 mg IVP Q6 [facility] Last Admin: 10/18/17 21:19 Dose: 5 mg - Labs Labs: 10/18/17 06:03 10/18/17 06:03 PT 17.4 Seconds (9.8-13.1) H 10/16/17 09:20 INR 1.6 (0.9-1.2) H 10/16/17 09:20 APTT 35.0 Seconds (25.6-37.1) D 10/17/17 08:10 - Constitutional Appears: Chronically Ill - Head Exam Head Exam: NORMAL INSPECTION - Eye Exam Eye Exam: PERRL - ENT Exam Additional comments: Nose bridge scab - Neck Exam Neck Exam: Normal Inspection - Respiratory Exam Respiratory Exam: Decreased Breath Sounds (at bases) - Cardiovascular Exam Cardiovascular Exam: Irregular Rhythm - GI/Abdominal Exam GI & Abdominal Exam: Soft, Normal Bowel Sounds - Extremities Exam Extremities Exam: Pedal Edema - Back Exam Additional comments: DTI Sacrum - Neurological Exam Additional comments: Eyes open , not fofllowing commands, generalized weakness - Skin Skin Exam: Warm Assessment and Plan (1) Acute respiratory failure with hypoxia Assessment & Plan: and hypercapnia Status: Acute (2) Altered mental status Status: Acute (3) Pleural effusion, bilateral Status: Acute (4) Hx of seizure disorder Status: Chronic (5) Diastolic CHF, acute on chronic Status: Acute (6) A-fib Status: Chronic (7) Encephalopathy Status: Acute (8) CANDELARIA (acute kidney injury) Status: Acute (9) Anemia Status: Chronic (10) Aortic valve vegetation Status: Acute (11) SUSAN (obstructive sleep apnea) Status: Chronic - Assessment and Plan (Free Text) Plan: CXR increase air space disease R base, minimal R effusion , mild L effusion , no increase in effusion from previous X Ray , Patient has remained in RSR after Cardioversion , ID reported Aortic vegetation , Vanco was started , f/u blod C-S , Patient on Flagyl( C Diff), Acyclovir empirically, monitor Hgb , continue Pulmonary sport bed , chair position , PT , BIPAP at night ICU Time: 36 min.
[2017-10-19] MEDS: Proshield Plus GEL TOP SCH ×3 (00:59→17:22)
[2017-10-19] MEDS: metroNIDAZOLE 500mg/100ml NS 100 ML IVPB SCH ×3 (00:59→16:56)
--- NOTE | 2017-10-19 01:01 | CP.PCM.PN ---
Subjective - Date & Time of Evaluation Date of Evaluation: 10/18/17 Time of Evaluation: 22:00 - Subjective Subjective: Patient is opening his eyes but not responsive to verbal stimuli. His tests are not showing more accumulation of Pleural effusion on Right side and Left side. He has He was found to have vegetations on the Aortic valve and is started on IV Vancomycin, in addition to his Flagyl for C Difficile infection and empirical Acyclovir. Normal VS. Objective - Vital Signs/Intake and Output Vital Signs (last 24 hours): Temp Pulse Resp BP Pulse Ox 97.2 F L 72 22 105/54 L 100 10/18/17 20:00 10/18/17 23:19 10/18/17 22:01 10/18/17 22:00 10/18/17 22:00 Intake and Output: 10/18/17 10/19/17 18:59 06:59 Intake Total 1616 300 Output Total 1000 Balance 616 300 - Medications Medications: Current Medications Acetazolamide (Diamox 250 Mg Tab) 250 mg PO BID [facility] Last Admin: 10/18/17 16:54 Dose: 250 mg Calcium Carbonate (Oscal) 500 mg PO BIDWM [facility] Last Admin: 10/18/17 16:58 Dose: 500 mg Cholecalciferol (Vitamin D) 5,000 iu PO DAILY [facility] Last Admin: 10/18/17 08:24 Dose: 5,000 iu Diltiazem HCl (Cardizem) 30 mg PO 0300,0900,1500,2100 [facility] Last Admin: 10/18/17 20:11 Dose: 30 mg Dimethicone (Proshield Plus Skin Protectant) 1 applic TOP Q8 [facility] Last Admin: 10/18/17 18:58 Dose: 1 applic Enoxaparin Sodium (Lovenox) 80 mg SC Q12 [facility]UKI PRN Reason: Protocol Last Admin: 10/18/17 21:19 Dose: 80 mg Furosemide (Lasix) 40 mg IV BID [facility] Last Admin: 10/18/17 16:56 Dose: 40 mg Metronidazole (Flagyl 500mg/100ml Ns) 100 mls @ 100 mls/hr IVPB Q8 [facility] PRN Reason: Protocol Last Admin: 10/18/17 16:56 Dose: 100 mls/hr Acyclovir 500 mg/ Sodium (Chloride) 100 mls @ 100 mls/hr IV Q8 [facility]UKI PRN Reason: Protocol Last Admin: 10/18/17 18:58 Dose: 100 mls/hr Vancomycin HCl 1 gm/ Sodium (Chloride) 250 mls @ 250 mls/hr IVPB Q24H [facility] PRN Reason: Protocol Last Admin: 10/18/17 16:40 Dose: 250 mls/hr Lactobacillus Acidophilus (Bacid Acidophilus) 1 cap PO BID [facility] Last Admin: 10/18/17 16:59 Dose: 1 cap Lamotrigine (Lamictal) 50 mg PO Q12 [facility] Last Admin: 10/18/17 21:18 Dose: 50 mg Levothyroxine Sodium (Synthroid) 12.5 mcg PO DAILY@0630 [facility] Last Admin: 10/18/17 05:59 Dose: 12.5 mcg Metoprolol Tartrate (Lopressor) 5 mg IVP Q6 [facility] Last Admin: 10/18/17 21:19 Dose: 5 mg - Labs Labs: 10/18/17 06:03 10/18/17 06:03 PT 17.4 Seconds (9.8-13.1) H 10/16/17 09:20 INR 1.6 (0.9-1.2) H 10/16/17 09:20 APTT 35.0 Seconds (25.6-37.1) D 10/17/17 08:10 Assessment and Plan (1) CANDELARIA (acute kidney injury) Status: Acute (2) Acute respiratory failure Status: Acute (3) Altered mental status Status: Acute (4) Pleural effusion, bilateral Status: Acute (5) Pneumonia Status: Acute (6) Seizure disorder Status: Suspected (7) Encephalopathy Status: Acute
[2017-10-19] MEDS: Acyclovir 500 MG in Sodium Chloride 0.9% 100 ML IV SCH ×3 (02:04→16:58)
[2017-10-19] MEDS: Levothyroxine 25 MCG TAB PO SCH (07:36)
[2017-10-19] MEDS: Metoprolol 1 mg/ml Inj IVP SCH ×4 (07:37→22:46)
[2017-10-19 07:57] LABS: BASO % 0.7 % (0.0-2.0); EOS # 0.1 K/uL (0.0-0.7); EOS % 2.2 % (0.0-4.0); HEMOGLOBIN 8.2 g/dL (12.0-18.0); LYMPH # 0.8 K/uL (1.0-4.3); LYMPH % 13.5 % (20.0-40.0); MEAN CELL VOLUME 91.5 fl (80.0-94.0); MEAN CORPUSCULAR HEMOGLOBIN 29.1 pg (27.0-31.0); MEAN CORPUSCULAR HGB CONC 31.8 g/dL (33.0-37.0); MEAN PLATELET VOLUME 8.5 fl (7.2-11.7); MONO # 0.7 K/uL (0.0-0.8); NEUT # 4.5 K/uL (1.8-7.0); NEUT % 72.6 % (50.0-75.0); NRBC % 0.2 % (0.0-0.0); RBC 2.8 Mil/uL (4.40-5.90); RED CELL DISTRIBUTION WIDTH 18.4 % (11.5-14.5); WHITE BLOOD COUNT 6.2 K/uL (4.8-10.8)
--- NOTE | 2017-10-19 08:15 | CP.CCUPN ---
CCU Subjective - Physician Review Events Since Last Encounter (Free Text): 10/19/17 08:13 Patient on high flow O2 supplement, on NG tube feeding, no pressors, no fever events reviewed CCU Objective - Vital Signs / Intake & Output Vital Signs (Last 4 hours): Vital Signs Pulse Resp BP Pulse Ox 10/19/17 07:37 95 H 120/60 10/19/17 06:00 111 H 32 H 132/43 L 100 10/19/17 05:50 22 Intake and Output (Last 8hrs): Intake & Output 10/18/17 10/19/17 10/19/17 22:59 06:59 14:59 Intake Total 808 1450 Output Total 1000 1000 Balance -192 450 Intake: IV 8 Intake, Piggyback 350 300 Tube Feeding 200 550 Free Water Flush 250 600 Output: Urine 1000 1000 Urethral (Wang) 1000 1000 Other: # Bowel Movements 1 - Physical Exam Head: Positive for: Atraumatic, Normocephalic Pupils: Positive for: PERRL, Sluggish Conjunctiva: Positive for: Normal. Negative for: Icteric Ears: Positive for: Normal Mouth: Positive for: Moist Mucous Membranes Pharnyx: Negative for: ERYTHEMA Neck: Positive for: Normal Range of Motion. Negative for: JVD Respiratory/Chest: Positive for: Decreased Breath Sounds, Rhonchi (upper airway rhonchi), Tachypneic. Negative for: Accessory Muscle Use, Wheezes Cardiovascular: Positive for: Irregular Rhythm, Peripheal Pulses Present, Tachycardic. Negative for: Murmurs, Normal S1, S2, Rub Abdomen: Positive for: Normal Bowel Sounds. Negative for: Tenderness, Distention, Peritoneal Signs Upper Extremity: Positive for: Edema Lower Extremity: Positive for: Edema, NORMAL PULSES. Negative for: CALF TENDERNESS, Cyanosis Neurological: Positive for: Other (withdraws to deep pain) Skin: Positive for: Warm, Dry. Negative for: Rashes Psychiatric: Positive for: Lethargic - Medications Active Medications: Active Medications Generic Name Dose Route Start Last Admin Trade Name Freq PRN Reason Stop Dose Admin Acetazolamide 250 mg 10/09/17 17:00 10/18/17 16:54 Diamox 250 Mg Tab PO 250 mg BID [facility] Administration Calcium Carbonate 500 mg 09/26/17 08:00 10/18/17 16:58 Oscal PO 500 mg BIDWM [facility]UKI Administration Cholecalciferol 5,000 iu 10/18/17 09:00 10/18/17 08:24 Vitamin D PO 5,000 iu DAILY [facility] Administration Diltiazem HCl 30 mg 10/18/17 03:00 10/19/17 02:06 Cardizem PO 30 mg 0300,0900,1500,2100 [facility] Administration Dimethicone 1 applic 10/07/17 17:00 10/19/17 00:59 Proshield Plus Skin Protectant TOP 1 applic Q8 [facility]I Administration Enoxaparin Sodium 80 mg 10/17/17 21:00 10/18/17 21:19 Lovenox SC 80 mg Q12 Y[facility]I Administration Protocol Furosemide 40 mg 10/15/17 17:00 10/18/17 16:56 Lasix IV 40 mg BID [facility]I Administration Metronidazole 100 mls @ 100 mls/hr 10/14/17 01:00 10/19/17 00:59 Flagyl 500mg/100ml Ns IVPB 100 mls/hr Q8 [facility] Administration Protocol Acyclovir 500 mg/ Sodium 100 mls @ 100 mls/hr 10/16/17 17:00 10/19/17 02:04 Chloride IV 100 mls/hr Q8 [facility] Administration Protocol Vancomycin HCl 1 gm/ Sodium 250 mls @ 250 mls/hr 10/18/17 13:30 10/18/17 16: 40 Chloride IVPB 250 mls/hr Q24H [facility] Administration Protocol Lactobacillus Acidophilus 1 cap 10/08/17 09:00 10/18/17 16:59 Bacid Acidophilus PO 1 cap BID [facility] Administration Lamotrigine 50 mg 10/16/17 09:00 10/18/17 21:18 Lamictal PO 50 mg Q12 [facility]I Administration Levothyroxine Sodium 12.5 mcg 10/09/17 06:30 10/19/17 07:36 Synthroid PO 12.5 mcg DAILY@0630 [facility] Administration Metoprolol Tartrate 5 mg 10/15/17 16:28 10/19/17 07:37 Lopressor IVP 5 mg Q6 YUKI Administration - Patient Studies Lab Studies: Microbiology Studies 10/14/17 13:36 Blood Culture - Preliminary Blood-Thru Central Line NO GROWTH AFTER 4 DAYS 10/14/17 12:26 Blood Culture - Preliminary Blood-Venous NO GROWTH AFTER 4 DAYS Lab Studies 10/19/17 10/16/17 Range/Units 07:50 13:57 WBC 6.2 (4.8-10.8) K/uL RBC 2.80 L (4.40-5.90) Mil/uL Hgb 8.2 L (12.0-18.0) g/dL Hct 25.7 L (35.0-51.0) % MCV 91.5 (80.0-94.0) fl MCH 29.1 (27.0-31.0) pg MCHC 31.8 L (33.0-37.0) g/dL RDW 18.4 H (11.5-14.5) % Plt Count 253 (130-400) K/uL MPV 8.5 (7.2-11.7) fl Neut % (Auto) 72.6 (50.0-75.0) % Lymph % (Auto) 13.5 L (20.0-40.0) % [place] % (Auto) 11.0 H (0.0-10.0) % Eos % (Auto) 2.2 (0.0-4.0) % Baso % (Auto) 0.7 (0.0-2.0) % Neut # 4.5 (1.8-7.0) K/uL Lymph # 0.8 L (1.0-4.3) K/uL [place] # 0.7 (0.0-0.8) K/uL Eos # 0.1 (0.0-0.7) K/uL Baso # 0.0 (0.0-0.2) K/uL Lamotrigine 0.6 L (4.0-18.0) mcg/mL Laboratory Results - last 24 hr 10/16/17 10/19/17 13:57 07:50 WBC 6.2 RBC 2.80 L Hgb 8.2 L Hct 25.7 L MCV 91.5 MCH 29.1 MCHC 31.8 L RDW 18.4 H Plt Count 253 MPV 8.5 Neut % (Auto) 72.6 Lymph % (Auto) 13.5 L [place] % (Auto) 11.0 H Eos % (Auto) 2.2 Baso % (Auto) 0.7 Neut # 4.5 Lymph # 0.8 L [place] # 0.7 Eos # 0.1 Baso # 0.0 Lamotrigine 0.6 L Fingerstick Blood Sugar Results: 83 Assessment/Plan - Assessment and Plan (Free Text) Assessment: A/P Respiratory failure, ivett pleural effusion, ?pneumonia, CHF, A Fib, CKD, coagulopathy, seizer - O2 supplement - Pulmonary toilets - Cardiology follow up - Continue meds - Poor prognosis critical care 35 min
[2017-10-19 08:17] LABS: ALB/GLOB RATIO 0.6 (1.0-2.1); ALBUMIN 2.4 g/dL (3.5-5.0); ALT/SGPT 28 U/L (21-72); AST/SGOT 21 U/L (17-59); BLOOD UREA NITROGEN 33 mg/dl (9-20); CALCIUM 7.8 mg/dL (8.4-10.2); GFR AFRICAN-AMERICAN > 60; GFR NON-AFRICAN AMERICAN > 60
[2017-10-19] MEDS: Enoxaparin 80 mg Syringe SC SCH ×2 (08:41→21:03)
[2017-10-19] MEDS: Cholecalciferol 1,000 INTLU TAB PO SCH (08:42)
[2017-10-19] MEDS: Lactobacillus Acidophilus 500 MU Cap PO SCH ×2 (09:25→16:54)
--- NOTE | 2017-10-19 18:15 | CP.PCM.PN ---
Subjective - Date & Time of Evaluation Date of Evaluation: 10/19/17 Time of Evaluation: 15:20 - Subjective Subjective: F/U Respiratory failure Pt trying to talk to and nurse, on high flow O2. Objective - Vital Signs/Intake and Output Vital Signs (last 24 hours): Temp Pulse Resp BP Pulse Ox 97.9 F 83 17 132/62 100 10/19/17 16:00 10/19/17 16:55 10/19/17 16:08 10/19/17 16:57 10/19/17 16:00 Intake and Output: 10/19/17 10/19/17 06:59 18:59 Intake Total 1450 1052 Output Total 1000 0 Balance 450 1052 - Medications Medications: Current Medications Acetazolamide (Diamox 250 Mg Tab) 250 mg PO BID [facility] Last Admin: 10/19/17 16:56 Dose: 250 mg Calcium Carbonate (Oscal) 500 mg PO BIDWM [facility] Last Admin: 10/19/17 08:42 Dose: 500 mg Cholecalciferol (Vitamin D) 5,000 iu PO DAILY [facility] Last Admin: 10/19/17 08:42 Dose: 5,000 iu Diltiazem HCl (Cardizem) 30 mg PO 0300,0900,1500,2100 [facility] Last Admin: 10/19/17 16:55 Dose: 30 mg Dimethicone (Proshield Plus Skin Protectant) 1 applic TOP Q8 [facility] Last Admin: 10/19/17 17:22 Dose: 1 applic Enoxaparin Sodium (Lovenox) 80 mg SC Q12 [facility] PRN Reason: Protocol Last Admin: 10/19/17 08:41 Dose: 80 mg Furosemide (Lasix) 40 mg IV BID [facility] Last Admin: 10/19/17 16:57 Dose: 40 mg Metronidazole (Flagyl 500mg/100ml Ns) 100 mls @ 100 mls/hr IVPB Q8 [facility] PRN Reason: Protocol Last Admin: 10/19/17 16:56 Dose: 100 mls/hr Acyclovir 500 mg/ Sodium (Chloride) 100 mls @ 100 mls/hr IV Q8 [facility] PRN Reason: Protocol Last Admin: 10/19/17 16:58 Dose: 100 mls/hr Vancomycin HCl 1 gm/ Sodium (Chloride) 250 mls @ 250 mls/hr IVPB Q24H [facility] PRN Reason: Protocol Last Admin: 10/19/17 15:10 Dose: 250 mls/hr Lactobacillus Acidophilus (Bacid Acidophilus) 1 cap PO BID [facility] Last Admin: 10/19/17 16:54 Dose: 1 cap Lamotrigine (Lamictal) 50 mg PO Q12 [facility] Last Admin: 10/19/17 08:40 Dose: 50 mg Levothyroxine Sodium (Synthroid) 12.5 mcg PO DAILY@0630 [facility] Last Admin: 10/19/17 07:36 Dose: 12.5 mcg Metoprolol Tartrate (Lopressor) 5 mg IVP Q6 [facility] Last Admin: 10/19/17 16:49 Dose: 5 mg - Labs Labs: 10/19/17 07:50 10/19/17 07:50 PT 17.4 Seconds (9.8-13.1) H 10/16/17 09:20 INR 1.6 (0.9-1.2) H 10/16/17 09:20 APTT 35.0 Seconds (25.6-37.1) D 10/17/17 08:10 - Constitutional Appears: Chronically Ill - Head Exam Head Exam: NORMAL INSPECTION - Eye Exam Eye Exam: PERRL - ENT Exam Additional comments: Nose bridge scab - Neck Exam Neck Exam: Normal Inspection - Respiratory Exam Respiratory Exam: Decreased Breath Sounds (at bases), Rhonchi (scattered) - Cardiovascular Exam Cardiovascular Exam: Irregular Rhythm - GI/Abdominal Exam GI & Abdominal Exam: Soft, Normal Bowel Sounds - Extremities Exam Additional comments: Edema extremities. - Back Exam Additional comments: DTI sacrum - Neurological Exam Neurological Exam: Awake Additional comments: Eyes open, shaking head to answer questions, generalized weakness. - Psychiatric Exam Additional comments: Calm - Skin Skin Exam: Warm Assessment and Plan (1) Acute respiratory failure with hypoxia Status: Acute (2) Altered mental status Status: Acute (3) Pleural effusion, bilateral Status: Acute (4) Hx of seizure disorder Status: Chronic (5) Diastolic CHF, acute on chronic Status: Acute (6) A-fib Status: Chronic (7) Encephalopathy Status: Acute (8) CANDELARIA (acute kidney injury) Status: Acute (9) Anemia Status: Chronic (10) Aortic valve vegetation Status: Acute (11) SUSAN (obstructive sleep apnea) Status: Chronic - Assessment and Plan (Free Text) Plan: Continue Vanco, Flagyl, acyclovir, BIPAP overnight and rest of Tx. ICU Time: 40 min.
--- NOTE | 2017-10-19 23:03 | CP.PCM.PN ---
Subjective - Date & Time of Evaluation Date of Evaluation: 10/19/17 Time of Evaluation: 21:05 - Subjective Subjective: IMPRESSION of CXR: Interval increase in airspace disease at the right base is suspected though mild with trace right pleural effusion in question. Mild left pleural effusion unchanged. He is still lying down on CPAP. He is responsive to Verbal and tactile stimulation and answering questions with his head and focusing with his eyes in an Eye to Eye contact. He is looking around, able to talk with his eyes and interacts with his . IV Vancomycin and Sleep Apnea treatment have changed completely the picture. Objective - Vital Signs/Intake and Output Vital Signs (last 24 hours): Temp Pulse Resp BP Pulse Ox 97.9 F 74 24 111/55 L 100 10/19/17 16:00 10/19/17 22:46 10/19/17 21:03 10/19/17 22:46 10/19/17 21:03 Intake and Output: 10/19/17 10/20/17 18:59 06:59 Intake Total 1392 100 Output Total 1000 Balance 392 100 - Medications Medications: Current Medications Acetazolamide (Diamox 250 Mg Tab) 250 mg PO BID [facility] Last Admin: 10/19/17 16:56 Dose: 250 mg Calcium Carbonate (Oscal) 500 mg PO BIDWM [facility] Last Admin: 10/19/17 08:42 Dose: 500 mg Cholecalciferol (Vitamin D) 5,000 iu PO DAILY [facility] Last Admin: 10/19/17 08:42 Dose: 5,000 iu Diltiazem HCl (Cardizem) 30 mg PO 0300,0900,1500,2100 [facility] Last Admin: 10/19/17 21:03 Dose: 30 mg Dimethicone (Proshield Plus Skin Protectant) 1 applic TOP Q8 [facility] Last Admin: 10/19/17 17:22 Dose: 1 applic Enoxaparin Sodium (Lovenox) 80 mg SC Q12 [facility]I PRN Reason: Protocol Last Admin: 10/19/17 21:03 Dose: 80 mg Furosemide (Lasix) 40 mg IV BID [facility] Last Admin: 10/19/17 16:57 Dose: 40 mg Metronidazole (Flagyl 500mg/100ml Ns) 100 mls @ 100 mls/hr IVPB Q8 [facility] PRN Reason: Protocol Last Admin: 10/19/17 16:56 Dose: 100 mls/hr Acyclovir 500 mg/ Sodium (Chloride) 100 mls @ 100 mls/hr IV Q8 [facility]I PRN Reason: Protocol Last Admin: 10/19/17 16:58 Dose: 100 mls/hr Vancomycin HCl 1 gm/ Sodium (Chloride) 250 mls @ 250 mls/hr IVPB Q24H [facility]I PRN Reason: Protocol Last Admin: 10/19/17 15:10 Dose: 250 mls/hr Lactobacillus Acidophilus (Bacid Acidophilus) 1 cap PO BID [facility] Last Admin: 10/19/17 16:54 Dose: 1 cap Lamotrigine (Lamictal) 50 mg PO Q12 [facility] Last Admin: 10/19/17 21:04 Dose: 50 mg Levothyroxine Sodium (Synthroid) 12.5 mcg PO DAILY@0630 [facility] Last Admin: 10/19/17 07:36 Dose: 12.5 mcg Metoprolol Tartrate (Lopressor) 5 mg IVP Q6 [facility] Last Admin: 10/19/17 22:46 Dose: 5 mg - Labs Labs: 10/19/17 07:50 10/19/17 07:50 PT 17.4 Seconds (9.8-13.1) H 10/16/17 09:20 INR 1.6 (0.9-1.2) H 10/16/17 09:20 APTT 35.0 Seconds (25.6-37.1) D 10/17/17 08:10 Assessment and Plan (1) CANDELARIA (acute kidney injury) Status: Acute (2) Acute respiratory failure Status: Acute (3) Altered mental status Status: Acute (4) Pleural effusion, bilateral Status: Acute (5) Pneumonia Status: Acute (6) Seizure disorder Status: Suspected (7) Encephalopathy Status: Acute
[2017-10-20] MEDS: Acyclovir 500 MG in Sodium Chloride 0.9% 100 ML IV SCH ×3 (01:36→16:40)
[2017-10-20] MEDS: metroNIDAZOLE 500mg/100ml NS 100 ML IVPB SCH ×3 (01:38→16:56)
[2017-10-20] MEDS: Proshield Plus GEL TOP SCH ×3 (01:38→16:54)
[2017-10-20] MEDS: Metoprolol 1 mg/ml Inj IVP SCH ×4 (05:00→21:32)
[2017-10-20] MEDS: Levothyroxine 25 MCG TAB PO SCH (06:44)
--- NOTE | 2017-10-20 07:27 | CP.CCUPN ---
CCU Subjective - Physician Review Events Since Last Encounter (Free Text): 10/20/17 07:27 Patient on high flow O2 supplement, on NG tube feeding, no pressors, no fever events reviewed CCU Objective - Vital Signs / Intake & Output Vital Signs (Last 4 hours): Vital Signs Pulse Resp 10/20/17 05:57 21 10/20/17 05:42 81 Intake and Output (Last 8hrs): Intake & Output 10/19/17 10/20/17 10/20/17 22:59 06:59 14:59 Intake Total 1215 580 Output Total 1000 Balance 215 580 Intake: Intake, Piggyback 550 200 Tube Feeding 315 180 Free Water Flush 350 200 Output: Gastric Amount 0 Stomach 0 Urine 1000 Urethral (Wang) 1000 - Physical Exam Head: Positive for: Atraumatic, Normocephalic Pupils: Positive for: PERRL, Sluggish Extroacular Muscles: Positive for: EOMI Conjunctiva: Positive for: Normal. Negative for: Icteric Ears: Positive for: Normal Mouth: Positive for: Moist Mucous Membranes Pharnyx: Negative for: ERYTHEMA Neck: Positive for: Normal Range of Motion. Negative for: JVD Respiratory/Chest: Positive for: Decreased Breath Sounds, Rhonchi (upper airway rhonchi), Tachypneic. Negative for: Accessory Muscle Use, Wheezes Cardiovascular: Positive for: Irregular Rhythm, Peripheal Pulses Present, Tachycardic. Negative for: Murmurs, Normal S1, S2, Rub Abdomen: Positive for: Normal Bowel Sounds. Negative for: Tenderness, Distention, Peritoneal Signs Upper Extremity: Positive for: Edema Lower Extremity: Positive for: Edema, NORMAL PULSES. Negative for: CALF TENDERNESS, Cyanosis Neurological: Positive for: Other (withdraws to deep pain) Skin: Positive for: Warm, Dry. Negative for: Rashes Psychiatric: Positive for: Lethargic - Medications Active Medications: Active Medications Generic Name Dose Route Start Last Admin Trade Name Freq PRN Reason Stop Dose Admin Acetazolamide 250 mg 10/09/17 17:00 10/19/17 16:56 Diamox 250 Mg Tab PO 250 mg BID YUKI Administration Calcium Carbonate 500 mg 09/26/17 08:00 10/19/17 08:42 Oscal PO 500 mg BIDWM YUKI Administration Cholecalciferol 5,000 iu 10/18/17 09:00 10/19/17 08:42 Vitamin D PO 5,000 iu DAILY [facility]I Administration Diltiazem HCl 30 mg 10/18/17 03:00 10/20/17 02:26 Cardizem PO 30 mg 0300,0900,1500,2100 [facility] Administration Dimethicone 1 applic 10/07/17 17:00 10/20/17 01:38 Proshield Plus Skin Protectant TOP 1 applic Q8 YUKI Administration Enoxaparin Sodium 80 mg 10/17/17 21:00 10/19/17 21:03 Lovenox SC 80 mg Q12 YUKI Administration Protocol Furosemide 40 mg 10/15/17 17:00 10/19/17 16:57 Lasix IV 40 mg BID YUKI Administration Acyclovir 500 mg/ Sodium 100 mls @ 100 mls/hr 10/16/17 17:00 10/20/17 01:36 Chloride IV 100 mls/hr Q8 YUKI Administration Protocol Vancomycin HCl 1 gm/ Sodium 250 mls @ 250 mls/hr 10/18/17 13:30 10/19/17 15: 10 Chloride IVPB 250 mls/hr Q24H YUKI Administration Protocol Lactobacillus Acidophilus 1 cap 10/08/17 09:00 10/19/17 16:54 Bacid Acidophilus PO 1 cap BID YUKI Administration Lamotrigine 50 mg 10/16/17 09:00 10/19/17 21:04 Lamictal PO 50 mg Q12 YUKI Administration Levothyroxine Sodium 12.5 mcg 10/09/17 06:30 10/20/17 06:44 Synthroid PO 12.5 mcg DAILY@0630 [facility]I Administration Metoprolol Tartrate 5 mg 10/15/17 16:28 10/20/17 05:00 Lopressor IVP 5 mg Q6 YUKI Administration - Patient Studies Lab Studies: Microbiology Studies 10/14/17 13:36 Blood Culture - Final Blood-Thru Central Line NO GROWTH AFTER 5 DAYS Gram Stain - Final TEST NOT PERFORMED 10/14/17 12:26 Blood Culture - Final Blood-Venous NO GROWTH AFTER 5 DAYS Gram Stain - Final TEST NOT PERFORMED Lab Studies 10/19/17 10/19/17 10/19/17 Range/Units 07:50 07:50 07:50 WBC 6.2 (4.8-10.8) K/uL RBC 2.80 L (4.40-5.90) Mil/uL Hgb 8.2 L (12.0-18.0) g/dL Hct 25.7 L (35.0-51.0) % MCV 91.5 (80.0-94.0) fl MCH 29.1 (27.0-31.0) pg MCHC 31.8 L (33.0-37.0) g/dL RDW 18.4 H (11.5-14.5) % Plt Count 253 (130-400) K/uL MPV 8.5 (7.2-11.7) fl Neut % (Auto) 72.6 (50.0-75.0) % Lymph % (Auto) 13.5 L (20.0-40.0) % [place] % (Auto) 11.0 H (0.0-10.0) % Eos % (Auto) 2.2 (0.0-4.0) % Baso % (Auto) 0.7 (0.0-2.0) % Neut # 4.5 (1.8-7.0) K/uL Lymph # 0.8 L (1.0-4.3) K/uL [place] # 0.7 (0.0-0.8) K/uL Eos # 0.1 (0.0-0.7) K/uL Baso # 0.0 (0.0-0.2) K/uL Sodium 141 (132-148) mmol/l Potassium 4.1 (3.6-5.0) MMOL/L Chloride 107 (98-107) mmol/L Carbon Dioxide 29 (22-30) mmol/L Anion Gap 9 L (10-20) BUN 33 H (9-20) mg/dl Creatinine 1.1 (0.8-1.5) mg/dl Est GFR ( Amer) > 60 Est GFR (Non-Af Amer) > 60 Random Glucose 95 (75-110) mg/dL Calcium 7.8 L (8.4-10.2) mg/dL Total Bilirubin 0.3 (0.2-1.3) mg/dl AST 21 (17-59) U/L ALT 28 (21-72) U/L Alkaline Phosphatase 86 (38-126) U/L Total Protein 6.1 L (6.3-8.2) G/DL Albumin 2.4 L (3.5-5.0) g/dL Globulin 3.7 (2.2-3.9) gm/dL Albumin/Globulin Ratio 0.6 L (1.0-2.1) Procalcitonin 0.24 (0.19-0.49) NG/ML Laboratory Results - last 24 hr 10/19/17 10/19/17 10/19/17 07:50 07:50 07:50 WBC 6.2 RBC 2.80 L Hgb 8.2 L Hct 25.7 L MCV 91.5 MCH 29.1 MCHC 31.8 L RDW 18.4 H Plt Count 253 MPV 8.5 Neut % (Auto) 72.6 Lymph % (Auto) 13.5 L [place] % (Auto) 11.0 H Eos % (Auto) 2.2 Baso % (Auto) 0.7 Neut # 4.5 Lymph # 0.8 L [place] # 0.7 Eos # 0.1 Baso # 0.0 Sodium 141 Potassium 4.1 Chloride 107 Carbon Dioxide 29 Anion Gap 9 L BUN 33 H Creatinine 1.1 Est GFR ( Amer) > 60 Est GFR (Non-Af Amer) > 60 Random Glucose 95 Calcium 7.8 L Total Bilirubin 0.3 AST 21 ALT 28 Alkaline Phosphatase 86 Total Protein 6.1 L Albumin 2.4 L Globulin 3.7 Albumin/Globulin Ratio 0.6 L Procalcitonin 0.24 Fingerstick Blood Sugar Results: 83 Assessment/Plan - Assessment and Plan (Free Text) Assessment: A/P Respiratory failure, ivett pleural effusion, ?pneumonia, CHF, A Fib, CKD, coagulopathy, seizer - O2 supplement - Pulmonary toilets - Cardiology follow up - Continue meds - Poor prognosis critical care 35 min
[2017-10-20 07:47] LABS: BASO % 0.7 % (0.0-2.0); EOS # 0.2 K/uL (0.0-0.7); EOS % 3.2 % (0.0-4.0); HEMOGLOBIN 8.3 g/dL (12.0-18.0); LYMPH # 0.9 K/uL (1.0-4.3); LYMPH % 12.8 % (20.0-40.0); MEAN CELL VOLUME 92.5 fl (80.0-94.0); MEAN CORPUSCULAR HEMOGLOBIN 28.4 pg (27.0-31.0); MEAN CORPUSCULAR HGB CONC 30.7 g/dL (33.0-37.0); MEAN PLATELET VOLUME 8.5 fl (7.2-11.7); MONO # 0.7 K/uL (0.0-0.8); MONO % 9.9 % (0.0-10.0); NEUT # 5.2 K/uL (1.8-7.0); NEUT % 73.4 % (50.0-75.0); RBC 2.93 Mil/uL (4.40-5.90); WHITE BLOOD COUNT 7.1 K/uL (4.8-10.8)
[2017-10-20 08:07] LABS: ALB/GLOB RATIO 0.7 (1.0-2.1); ALBUMIN 2.4 g/dL (3.5-5.0); ALT/SGPT 29 U/L (21-72); AST/SGOT 21 U/L (17-59); BLOOD UREA NITROGEN 31 mg/dl (9-20); CALCIUM 7.8 mg/dL (8.4-10.2); GFR AFRICAN-AMERICAN > 60; GFR NON-AFRICAN AMERICAN > 60
[2017-10-20] MEDS: Lactobacillus Acidophilus 500 MU Cap PO SCH ×2 (08:42→16:59)
[2017-10-20] MEDS: Enoxaparin 80 mg Syringe SC SCH ×2 (08:48→20:39)
[2017-10-20] MEDS: Cholecalciferol 1,000 INTLU TAB PO SCH (08:52)
--- NOTE | 2017-10-20 13:52 | CP.PCM.PN ---
Subjective - Date & Time of Evaluation Date of Evaluation: 10/20/17 Time of Evaluation: 07:00 - Subjective Subjective: more easily arousable appears to recognize his and following simple commands still weak, lethargic and bedbound Objective - Vital Signs/Intake and Output Vital Signs (last 24 hours): Temp Pulse Resp BP Pulse Ox 97.5 F L 68 17 110/54 L 100 10/20/17 12:00 10/20/17 12:00 10/20/17 12:00 10/20/17 12:00 10/20/17 12:00 Intake and Output: 10/20/17 10/20/17 06:59 18:59 Intake Total 1315 724 Output Total 625 10 Balance 690 714 - Medications Medications: Current Medications Acetazolamide (Diamox 250 Mg Tab) 250 mg PO BID [facility] Last Admin: 10/20/17 08:47 Dose: 250 mg Calcium Carbonate (Oscal) 500 mg PO BIDWM [facility] Last Admin: 10/20/17 08:48 Dose: 500 mg Cholecalciferol (Vitamin D) 5,000 iu PO DAILY [facility] Last Admin: 10/20/17 08:52 Dose: 5,000 iu Diltiazem HCl (Cardizem) 30 mg PO 0300,0900,1500,2100 [facility] Last Admin: 10/20/17 08:43 Dose: 30 mg Dimethicone (Proshield Plus Skin Protectant) 1 applic TOP Q8 [facility] Last Admin: 10/20/17 08:53 Dose: Not Given Enoxaparin Sodium (Lovenox) 80 mg SC Q12 [facility] PRN Reason: Protocol Last Admin: 10/20/17 08:48 Dose: 80 mg Furosemide (Lasix) 40 mg IV BID [facility] Last Admin: 10/20/17 08:47 Dose: 40 mg Acyclovir 500 mg/ Sodium (Chloride) 100 mls @ 100 mls/hr IV Q8 [facility] PRN Reason: Protocol Last Admin: 10/20/17 08:41 Dose: 100 mls/hr Vancomycin HCl 1 gm/ Sodium (Chloride) 250 mls @ 250 mls/hr IVPB Q24H [facility] PRN Reason: Protocol Last Admin: 10/20/17 12:42 Dose: 250 mls/hr Metronidazole (Flagyl 500mg/100ml Ns) 100 mls @ 100 mls/hr IVPB Q8 [facility] PRN Reason: Protocol Last Admin: 10/20/17 11:28 Dose: 100 mls/hr Lactobacillus Acidophilus (Bacid Acidophilus) 1 cap PO BID [facility] Last Admin: 10/20/17 08:42 Dose: 1 cap Lamotrigine (Lamictal) 50 mg PO Q12 [facility] Last Admin: 10/20/17 08:42 Dose: 50 mg Levothyroxine Sodium (Synthroid) 12.5 mcg PO DAILY@0630 [facility] Last Admin: 10/20/17 06:44 Dose: 12.5 mcg Metoprolol Tartrate (Lopressor) 5 mg IVP Q6 [facility] Last Admin: 10/20/17 11:29 Dose: 5 mg - Labs Labs: 10/20/17 07:00 10/20/17 07:00 PT 17.4 Seconds (9.8-13.1) H 10/16/17 09:20 INR 1.6 (0.9-1.2) H 10/16/17 09:20 APTT 35.0 Seconds (25.6-37.1) D 10/17/17 08:10 - Constitutional Appears: Non-toxic, Confused, Chronically Ill - Head Exam Head Exam: NORMOCEPHALIC - Eye Exam Eye Exam: PERRL. absent: Scleral icterus - ENT Exam ENT Exam: Mucous Membranes Dry - Neck Exam Neck Exam: absent: Lymphadenopathy - Respiratory Exam Respiratory Exam: Decreased Breath Sounds - Cardiovascular Exam Cardiovascular Exam: REGULAR RHYTHM, +S1, +S2, Murmur - GI/Abdominal Exam GI & Abdominal Exam: Distended, Soft - Rectal Exam Rectal Exam: Deferred - Exam Exam: NORMAL INSPECTION - Extremities Exam Extremities Exam: Pedal Edema. absent: Calf Tenderness, Tenderness - Back Exam Back Exam: absent: CVA tenderness (L), CVA tenderness (R) - Neurological Exam Neurological Exam: Alert, Altered, Awake, CN II-XII Intact - Psychiatric Exam Psychiatric exam: Depressed - Skin Skin Exam: Dry Assessment and Plan (1) CANDELARIA (acute kidney injury) Status: Acute (2) Acute respiratory failure Status: Acute (3) Altered mental status Status: Acute (4) Diastolic CHF, acute on chronic Status: Acute (5) Pleural effusion, bilateral Status: Acute (6) Pneumonia Status: Acute (7) Aortic valve vegetation Status: Acute - Assessment and Plan (Free Text) Assessment: iv vanco and acyclovir in progress procalcitonin level is low Dr Castro recommends rx for endocarditis- will need 6 weeks IV rx
--- NOTE | 2017-10-20 16:05 | CP.PCM.PN ---
Subjective - Date & Time of Evaluation Date of Evaluation: 10/20/17 Time of Evaluation: 16:05 - Subjective Subjective: MS improving post STEVEN/CVv on Abx for endocarditis Objective - Vital Signs/Intake and Output Vital Signs (last 24 hours): Temp Pulse Resp BP Pulse Ox 97.5 F L 68 17 110/54 L 100 10/20/17 12:00 10/20/17 12:00 10/20/17 12:00 10/20/17 12:00 10/20/17 12:00 Intake and Output: 10/20/17 10/20/17 06:59 18:59 Intake Total 1315 724 Output Total 625 10 Balance 690 714 - Medications Medications: Current Medications Acetazolamide (Diamox 250 Mg Tab) 250 mg PO BID [facility] Last Admin: 10/20/17 08:47 Dose: 250 mg Calcium Carbonate (Oscal) 500 mg PO BIDWM [facility] Last Admin: 10/20/17 08:48 Dose: 500 mg Cholecalciferol (Vitamin D) 5,000 iu PO DAILY [facility] Last Admin: 10/20/17 08:52 Dose: 5,000 iu Diltiazem HCl (Cardizem) 30 mg PO 0300,0900,1500,2100 [facility] Last Admin: 10/20/17 08:43 Dose: 30 mg Dimethicone (Proshield Plus Skin Protectant) 1 applic TOP Q8 [facility] Last Admin: 10/20/17 08:53 Dose: Not Given Enoxaparin Sodium (Lovenox) 80 mg SC Q12 [facility] PRN Reason: Protocol Last Admin: 10/20/17 08:48 Dose: 80 mg Furosemide (Lasix) 40 mg IV BID [facility] Last Admin: 10/20/17 08:47 Dose: 40 mg Acyclovir 500 mg/ Sodium (Chloride) 100 mls @ 100 mls/hr IV Q8 [facility] PRN Reason: Protocol Last Admin: 10/20/17 08:41 Dose: 100 mls/hr Vancomycin HCl 1 gm/ Sodium (Chloride) 250 mls @ 250 mls/hr IVPB Q24H [facility] PRN Reason: Protocol Last Admin: 10/20/17 12:42 Dose: 250 mls/hr Metronidazole (Flagyl 500mg/100ml Ns) 100 mls @ 100 mls/hr IVPB Q8 [facility] PRN Reason: Protocol Last Admin: 10/20/17 11:28 Dose: 100 mls/hr Lactobacillus Acidophilus (Bacid Acidophilus) 1 cap PO BID [facility] Last Admin: 10/20/17 08:42 Dose: 1 cap Lamotrigine (Lamictal) 50 mg PO Q12 [facility] Last Admin: 10/20/17 08:42 Dose: 50 mg Levothyroxine Sodium (Synthroid) 12.5 mcg PO DAILY@0630 [facility] Last Admin: 10/20/17 06:44 Dose: 12.5 mcg Metoprolol Tartrate (Lopressor) 5 mg IVP Q6 [facility] Last Admin: 10/20/17 11:29 Dose: 5 mg - Labs Labs: 10/20/17 07:00 10/20/17 07:00 PT 17.4 Seconds (9.8-13.1) H 10/16/17 09:20 INR 1.6 (0.9-1.2) H 10/16/17 09:20 APTT 35.0 Seconds (25.6-37.1) D 10/17/17 08:10 - Constitutional Appears: Well, Confused - Head Exam Head Exam: ATRAUMATIC, NORMAL INSPECTION, NORMOCEPHALIC - Eye Exam Eye Exam: EOMI, Normal appearance, PERRL Pupil Exam: NORMAL ACCOMODATION, PERRL - ENT Exam ENT Exam: Mucous Membranes Moist, Normal Exam - Neck Exam Neck Exam: Full ROM, Normal Inspection. absent: Lymphadenopathy - Respiratory Exam Respiratory Exam: Clear to Ausculation Bilateral, NORMAL BREATHING PATTERN - Cardiovascular Exam Cardiovascular Exam: Irregular Rhythm, +S1, +S2, Murmur - GI/Abdominal Exam GI & Abdominal Exam: Soft, Normal Bowel Sounds. absent: Tenderness - Extremities Exam Extremities Exam: Full ROM, Normal Capillary Refill, Normal Inspection. absent : Joint Swelling, Pedal Edema - Back Exam Back Exam: NORMAL INSPECTION - Neurological Exam Neurological Exam: Alert, Awake, CN II-XII Intact - Psychiatric Exam Psychiatric exam: Normal Affect, Normal Mood - Skin Skin Exam: Dry, Intact, Normal Color, Warm Assessment and Plan (1) A-fib Status: Chronic (2) Acute on chronic diastolic (congestive) heart failure Status: Chronic (3) Acute respiratory failure with hypoxia Status: Acute (4) Altered mental status Status: Deleted (5) HTN (hypertension) Status: Chronic (6) Seizure disorder Status: Chronic (7) CANDELARIA (acute kidney injury) Status: Resolved (8) Encephalopathy Status: Acute (9) Hypothermia Status: Deleted (10) Pleural effusion, bilateral Status: Acute (11) Supratherapeutic international normalized ratio (INR) Status: Acute (12) Acute decompensated heart failure Status: Acute (13) Atrial fibrillation with RVR Status: Acute
--- NOTE | 2017-10-20 17:09 | CP.PCM.PN ---
Subjective - Date & Time of Evaluation Date of Evaluation: 10/20/17 Time of Evaluation: 16:50 - Subjective Subjective: Patient is responsive to conversations, interactive, follows simple commands, when asked how is he doing he answered "Fine" He is on Nasal Oxygen in day time. He did well on CPAP last night. He is on his way to recover. Labs are showing anemia, better Kidney function tests, BUN is 31, Creatinine is 1.1. He is less dehydrated. Normal VS. Mildly abnormal Serum Protein. Low serum Calcium. Objective - Vital Signs/Intake and Output Vital Signs (last 24 hours): Temp Pulse Resp BP Pulse Ox 97.5 F L 73 18 111/60 100 10/20/17 12:00 10/20/17 16:39 10/20/17 16:39 10/20/17 16:41 10/20/17 16:39 Intake and Output: 10/20/17 10/20/17 06:59 18:59 Intake Total 1315 724 Output Total 625 10 Balance 690 714 - Medications Medications: Current Medications Acetazolamide (Diamox 250 Mg Tab) 250 mg PO BID [facility] Last Admin: 10/20/17 08:47 Dose: 250 mg Calcium Carbonate (Oscal) 500 mg PO BIDWM [facility] Last Admin: 10/20/17 08:48 Dose: 500 mg Cholecalciferol (Vitamin D) 5,000 iu PO DAILY [facility] Last Admin: 10/20/17 08:52 Dose: 5,000 iu Diltiazem HCl (Cardizem) 30 mg PO 0300,0900,1500,2100 [facility] Last Admin: 10/20/17 16:39 Dose: 30 mg Dimethicone (Proshield Plus Skin Protectant) 1 applic TOP Q8 [facility] Last Admin: 10/20/17 08:53 Dose: Not Given Enoxaparin Sodium (Lovenox) 80 mg SC Q12 [facility] PRN Reason: Protocol Last Admin: 10/20/17 08:48 Dose: 80 mg Furosemide (Lasix) 40 mg IV BID [facility] Last Admin: 10/20/17 16:41 Dose: 40 mg Acyclovir 500 mg/ Sodium (Chloride) 100 mls @ 100 mls/hr IV Q8 [facility] PRN Reason: Protocol Last Admin: 10/20/17 16:40 Dose: 100 mls/hr Vancomycin HCl 1 gm/ Sodium (Chloride) 250 mls @ 250 mls/hr IVPB Q24H [facility] PRN Reason: Protocol Last Admin: 10/20/17 12:42 Dose: 250 mls/hr Metronidazole (Flagyl 500mg/100ml Ns) 100 mls @ 100 mls/hr IVPB Q8 [facility] PRN Reason: Protocol Last Admin: 10/20/17 11:28 Dose: 100 mls/hr Lactobacillus Acidophilus (Bacid Acidophilus) 1 cap PO BID [facility] Last Admin: 10/20/17 08:42 Dose: 1 cap Lamotrigine (Lamictal) 50 mg PO Q12 [facility] Last Admin: 10/20/17 08:42 Dose: 50 mg Levothyroxine Sodium (Synthroid) 12.5 mcg PO DAILY@0630 [facility] Last Admin: 10/20/17 06:44 Dose: 12.5 mcg Metoprolol Tartrate (Lopressor) 5 mg IVP Q6 [facility] Last Admin: 10/20/17 16:36 Dose: Not Given - Labs Labs: 10/20/17 07:00 10/20/17 07:00 PT 17.4 Seconds (9.8-13.1) H 10/16/17 09:20 INR 1.6 (0.9-1.2) H 10/16/17 09:20 APTT 35.0 Seconds (25.6-37.1) D 10/17/17 08:10 Assessment and Plan (1) CANDELARIA (acute kidney injury) Status: Acute (2) Acute respiratory failure Status: Acute (3) Altered mental status Status: Acute (4) Pleural effusion, bilateral Status: Acute (5) Pneumonia Status: Acute (6) Seizure disorder Status: Suspected (7) Encephalopathy Status: Acute
--- NOTE | 2017-10-20 17:15 | CP.PCM.PN ---
Subjective - Date & Time of Evaluation Date of Evaluation: 10/20/17 Time of Evaluation: 14:00 - Subjective Subjective: F/U Respiratory failure. Pt is awake, able to talk, follows commands Objective - Vital Signs/Intake and Output Vital Signs (last 24 hours): Temp Pulse Resp BP Pulse Ox 97.5 F L 73 18 111/60 100 10/20/17 12:00 10/20/17 16:39 10/20/17 16:39 10/20/17 16:41 10/20/17 16:39 Intake and Output: 10/20/17 10/20/17 06:59 18:59 Intake Total 1315 724 Output Total 625 10 Balance 690 714 - Medications Medications: Current Medications Acetazolamide (Diamox 250 Mg Tab) 250 mg PO BID [facility] Last Admin: 10/20/17 16:53 Dose: 250 mg Calcium Carbonate (Oscal) 500 mg PO BIDWM [facility] Last Admin: 10/20/17 16:54 Dose: 500 mg Cholecalciferol (Vitamin D) 5,000 iu PO DAILY [facility] Last Admin: 10/20/17 08:52 Dose: 5,000 iu Diltiazem HCl (Cardizem) 30 mg PO 0300,0900,1500,2100 [facility] Last Admin: 10/20/17 16:39 Dose: 30 mg Dimethicone (Proshield Plus Skin Protectant) 1 applic TOP Q8 [facility] Last Admin: 10/20/17 16:54 Dose: 1 applic Enoxaparin Sodium (Lovenox) 80 mg SC Q12 [facility] PRN Reason: Protocol Last Admin: 10/20/17 08:48 Dose: 80 mg Furosemide (Lasix) 40 mg IV BID [facility] Last Admin: 10/20/17 16:41 Dose: 40 mg Acyclovir 500 mg/ Sodium (Chloride) 100 mls @ 100 mls/hr IV Q8 [facility] PRN Reason: Protocol Last Admin: 10/20/17 16:40 Dose: 100 mls/hr Vancomycin HCl 1 gm/ Sodium (Chloride) 250 mls @ 250 mls/hr IVPB Q24H [facility] PRN Reason: Protocol Last Admin: 10/20/17 12:42 Dose: 250 mls/hr Metronidazole (Flagyl 500mg/100ml Ns) 100 mls @ 100 mls/hr IVPB Q8 [facility] PRN Reason: Protocol Last Admin: 10/20/17 16:56 Dose: 100 mls/hr Lactobacillus Acidophilus (Bacid Acidophilus) 1 cap PO BID [facility] Last Admin: 10/20/17 16:59 Dose: 1 cap Lamotrigine (Lamictal) 50 mg PO Q12 [facility] Last Admin: 10/20/17 08:42 Dose: 50 mg Levothyroxine Sodium (Synthroid) 12.5 mcg PO DAILY@0630 [facility] Last Admin: 10/20/17 06:44 Dose: 12.5 mcg Metoprolol Tartrate (Lopressor) 5 mg IVP Q6 [facility] Last Admin: 10/20/17 16:36 Dose: Not Given - Labs Labs: 10/20/17 07:00 10/20/17 07:00 PT 17.4 Seconds (9.8-13.1) H 10/16/17 09:20 INR 1.6 (0.9-1.2) H 10/16/17 09:20 APTT 35.0 Seconds (25.6-37.1) D 10/17/17 08:10 - Constitutional Appears: No Acute Distress, Chronically Ill - Head Exam Head Exam: NORMAL INSPECTION - Eye Exam Eye Exam: PERRL - ENT Exam Additional comments: Nose bridge scab - Neck Exam Neck Exam: Normal Inspection - Respiratory Exam Respiratory Exam: Decreased Breath Sounds (at bases), Rhonchi (scattered) - Cardiovascular Exam Cardiovascular Exam: Irregular Rhythm - GI/Abdominal Exam GI & Abdominal Exam: Soft, Normal Bowel Sounds - Extremities Exam Additional comments: Edema extremities. - Back Exam Additional comments: DTI sacrum - Neurological Exam Neurological Exam: Awake Additional comments: Eyes open, able to talk, generalized weakness. Assessment and Plan (1) Acute respiratory failure with hypoxia Status: Acute (2) Altered mental status Status: Acute (3) Pleural effusion, bilateral Status: Acute (4) Hx of seizure disorder Status: Chronic (5) Diastolic CHF, acute on chronic Status: Acute (6) A-fib Status: Chronic (7) Encephalopathy Status: Acute (8) CANDELARIA (acute kidney injury) Status: Acute (9) Anemia Status: Chronic (10) Aortic valve vegetation Status: Acute (11) SUSAN (obstructive sleep apnea) Status: Chronic - Assessment and Plan (Free Text) Plan: Pt on RSR, Vanco, Acyclovir, Flagyl, continue Pulmonary sport bed , PT reposition in the morning chair position
[2017-10-21] MEDS: Acyclovir 500 MG in Sodium Chloride 0.9% 100 ML IV SCH ×3 (00:01→16:22)
[2017-10-21] MEDS: metroNIDAZOLE 500mg/100ml NS 100 ML IVPB SCH ×3 (00:03→17:18)
[2017-10-21] MEDS: Proshield Plus GEL TOP SCH ×3 (02:00→17:06)
[2017-10-21] MEDS: Levothyroxine 25 MCG TAB PO SCH (05:40)
[2017-10-21] MEDS: Metoprolol 1 mg/ml Inj IVP SCH ×4 (05:41→23:13)
[2017-10-21] MEDS: Cholecalciferol 1,000 INTLU TAB PO SCH (08:18)
[2017-10-21] MEDS: Lactobacillus Acidophilus 500 MU Cap PO SCH ×2 (08:18→16:42)
[2017-10-21 08:23] LABS: HEMOGLOBIN 7.8 g/dL (12.0-18.0); MEAN CELL VOLUME 94.1 fl (80.0-94.0); MEAN CORPUSCULAR HEMOGLOBIN 29.5 pg (27.0-31.0); MEAN CORPUSCULAR HGB CONC 31.4 g/dL (33.0-37.0); RBC 2.65 Mil/uL (4.40-5.90); RED CELL DISTRIBUTION WIDTH 18.3 % (11.5-14.5)
[2017-10-21 08:40] LABS: ALB/GLOB RATIO 0.7 (1.0-2.1); ALBUMIN 2.4 g/dL (3.5-5.0); ALT/SGPT 32 U/L (21-72); AST/SGOT 21 U/L (17-59); BLOOD UREA NITROGEN 38 mg/dl (9-20); GFR AFRICAN-AMERICAN > 60; GFR NON-AFRICAN AMERICAN > 60
--- NOTE | 2017-10-21 08:50 | CP.CCUPN ---
CCU Subjective - Physician Review Subjective (Free Text): 10/01/17 16:03 The patient was Seen and examined by me at the bedside, Medical records reviewed and Management issues were discussed and formulated with the house staff. 77 Years old Male with Multiple medical conditions including Atrial Fibrillation (on coumadin), CHF, CVA, HTN, Peripheral Edema, Seizures, Sleep Apnea, TIA Who was brought by EMS along with his to the Emergency Department for AMS Per , she was told by Dr. Escamilla to come to ED for "observation" She states that he has been on antibiotics for cough for 2 days and now develop hallucination secondary to antibiotics. In the ER he was very hypothermic, lethargic but respond to basic commands CXR showing bilateral pleural effusion and bibasilar opacity Tachypnea, placed on 50% VM Blood culture drawn and Received one dose of IV Rocephin and Zithromax Admitted to the ICU for Acute hypercarbic and Hypoxemic respiratory failure and severe sepsis Chest CT scan revealed moderate bilateral pleural effusion with atelectasis PT also had Elevated INR, received TOTAL 4U FFP 09/24, Underwent Left (8 fr) pig tail placement with about 500 serious fluid drained 09/25, Underwent Right (8 fr) pig tail placement and Left CT removed Right pig tail not functioning and Patient Underwent US guided placement of a right chest tube, 8 fr today Also Underwent US guided dual lumen picc placement via the right basilic vein 10/16, Underwent STEVEN with elective cardioversion (negative for clot) 10/21/17 14:15 Today he is awake, comfortable, NAD Clinically improving and hemodynamically stable No Vasopressors Patient on high flow O2 supplement Afebrile A-Fib on monitor, HR controlled Tolerating tube feeding Evaluated by Speach therapy and will be seen by PT/OT AM Labs, with improved renal function, Cr down to 1.1 and no leucocytosis Critical Care Time Spent (in minutes): 36 CCU Objective - Vital Signs / Intake & Output Vital Signs (Last 4 hours): Vital Signs Temp Pulse Resp BP Pulse Ox 10/21/17 08:25 20 10/21/17 08:24 96 H 10/21/17 08:14 132/54 L 10/21/17 08:00 98.3 F 87 20 132/54 L 100 10/21/17 06:00 98.1 F 99 H 22 114/62 100 10/21/17 05:41 92 H 119/74 Intake and Output (Last 8hrs): Intake & Output 10/20/17 10/21/17 10/21/17 22:59 06:59 14:59 Intake Total 975 972 200 Output Total 1400 1100 Balance -425 -128 200 Weight 185 lb 11.2 oz Intake: IV 10 12 Intake, Piggyback 200 200 Tube Feeding 315 360 Free Water Flush 450 400 200 Output: Urine 1400 1100 Urethral (Wang) 1400 1100 Other: # Bowel Movements 1 - Physical Exam Head: Positive for: Atraumatic, Normocephalic Pupils: Positive for: PERRL, Sluggish Extroacular Muscles: Positive for: EOMI Conjunctiva: Positive for: Normal. Negative for: Icteric Ears: Positive for: Normal Mouth: Positive for: Moist Mucous Membranes Pharnyx: Negative for: ERYTHEMA Neck: Positive for: Normal Range of Motion. Negative for: JVD Respiratory/Chest: Positive for: Decreased Breath Sounds, Rhonchi (upper airway rhonchi), Tachypneic. Negative for: Accessory Muscle Use, Wheezes Cardiovascular: Positive for: Irregular Rhythm, Peripheal Pulses Present, Tachycardic. Negative for: Murmurs, Normal S1, S2, Rub Abdomen: Positive for: Normal Bowel Sounds. Negative for: Tenderness, Distention, Peritoneal Signs Upper Extremity: Positive for: Edema Lower Extremity: Positive for: Edema, NORMAL PULSES. Negative for: CALF TENDERNESS, Cyanosis Neurological: Positive for: Other (withdraws to deep pain) Skin: Positive for: Warm, Dry. Negative for: Rashes Psychiatric: Positive for: Alert, Oriented x 3, Lethargic - Medications Active Medications: Active Medications Generic Name Dose Route Start Last Admin Trade Name Freq PRN Reason Stop Dose Admin Acetazolamide 250 mg 10/09/17 17:00 10/21/17 08:23 Diamox 250 Mg Tab PO 250 mg BID [facility] Administration Calcium Carbonate 500 mg 09/26/17 08:00 10/21/17 08:17 Oscal PO 500 mg BIDWM [facility] Administration Cholecalciferol 5,000 iu 10/18/17 09:00 10/21/17 08:18 Vitamin D PO 5,000 iu DAILY [facility] Administration Diltiazem HCl 30 mg 10/18/17 03:00 10/21/17 08:24 Cardizem PO 30 mg 0300,0900,1500,2100 [facility] Administration Dimethicone 1 applic 10/07/17 17:00 10/21/17 08:20 Proshield Plus Skin Protectant TOP 1 applic Q8 [facility] Administration Furosemide 40 mg 10/15/17 17:00 10/21/17 08:14 Lasix IV 40 mg BID [facility] Administration Acyclovir 500 mg/ Sodium 100 mls @ 100 mls/hr 10/16/17 17:00 10/21/17 08:22 Chloride IV 100 mls/hr Q8 [facility] Administration Protocol Vancomycin HCl 1 gm/ Sodium 250 mls @ 250 mls/hr 10/18/17 13:30 10/20/17 12: 42 Chloride IVPB 250 mls/hr Q24H [facility] Administration Protocol Metronidazole 100 mls @ 100 mls/hr 10/20/17 10:42 10/21/17 00:03 Flagyl 500mg/100ml Ns IVPB 100 mls/hr Q8 [facility] Administration Protocol Lactobacillus Acidophilus 1 cap 10/08/17 09:00 10/21/17 08:18 Bacid Acidophilus PO 1 cap BID [facility] Administration Lamotrigine 50 mg 10/16/17 09:00 10/21/17 08:21 Lamictal PO 50 mg Q12 [facility] Administration Levothyroxine Sodium 12.5 mcg 10/09/17 06:30 10/21/17 05:40 Synthroid PO 12.5 mcg DAILY@0630 [facility] Administration Metoprolol Tartrate 5 mg 10/15/17 16:28 10/21/17 05:41 Lopressor IVP 5 mg Q6 [facility] Administration - Patient Studies Lab Studies: Lab Studies 10/21/17 10/21/17 10/21/17 Range/Units 08:15 08:15 08:15 WBC 6.0 (4.8-10.8) K/uL RBC 2.65 L (4.40-5.90) Mil/uL Hgb 7.8 L (12.0-18.0) g/dL Hct 24.9 L (35.0-51.0) % MCV 94.1 H (80.0-94.0) fl MCH 29.5 (27.0-31.0) pg MCHC 31.4 L (33.0-37.0) g/dL RDW 18.3 H (11.5-14.5) % Plt Count 258 (130-400) K/uL Sodium 139 (132-148) mmol/l Potassium 4.1 (3.6-5.0) MMOL/L Chloride 108 H (98-107) mmol/L Carbon Dioxide 28 (22-30) mmol/L Anion Gap 7 L (10-20) BUN 38 H (9-20) mg/dl Creatinine 1.1 (0.8-1.5) mg/dl Est GFR ( Amer) > 60 Est GFR (Non-Af Amer) > 60 Random Glucose 105 (75-110) mg/dL Calcium 8.0 L (8.4-10.2) mg/dL Total Bilirubin 0.2 (0.2-1.3) mg/dl AST 21 (17-59) U/L ALT 32 (21-72) U/L Alkaline Phosphatase 84 (38-126) U/L Total Protein 5.9 L (6.3-8.2) G/DL Albumin 2.4 L (3.5-5.0) g/dL Globulin 3.5 (2.2-3.9) gm/dL Albumin/Globulin Ratio 0.7 L (1.0-2.1) Vancomycin Trough 15.6 H (5.0-10.0) ug/mL Laboratory Results - last 24 hr 10/21/17 10/21/17 10/21/17 08:15 08:15 08:15 WBC 6.0 RBC 2.65 L Hgb 7.8 L Hct 24.9 L MCV 94.1 H MCH 29.5 MCHC 31.4 L RDW 18.3 H Plt Count 258 Sodium 139 Potassium 4.1 Chloride 108 H Carbon Dioxide 28 Anion Gap 7 L BUN 38 H Creatinine 1.1 Est GFR ( Amer) > 60 Est GFR (Non-Af Amer) > 60 Random Glucose 105 Calcium 8.0 L Total Bilirubin 0.2 AST 21 ALT 32 Alkaline Phosphatase 84 Total Protein 5.9 L Albumin 2.4 L Globulin 3.5 Albumin/Globulin Ratio 0.7 L Vancomycin Trough 15.6 H Fingerstick Blood Sugar Results: 83 Review of Systems - Review of Systems Systems not reviewed;Unavailable: Acuity of Condition Critical Care Progress Note - Extremities/Vascular Does the Patient have a Central Venous Catheter?: Yes Does the Patient need a Central Venous Catheter?: Yes Does the Patient have a Wang Catheter?: Yes Does the Patient need a Wang Catheter?: Yes Assessment/Plan (1) Acute respiratory failure with hypoxia Current Visit: Yes Status: Acute Priority: High Comment: Acute hypercarbic and Hypoxemic respiratory failure secondary to likely aspiration pneumonia with pleural effusion in the setting of severe Respiratory muscle weakness Continue with ICU care for hemodynamic and Respiratory monitoring Successfully extubated IV Vancomycin, Metronidazole and Acyclovir Diuresis with lasix drip Strict I&O, negative fluid balance Aggressive pulmonary toilet, chest PT, suctioning nebulizer treatment Maintain aspiration precautions GI/DVT PPX (2) CANDELARIA (acute kidney injury) Current Visit: Yes Status: Deleted Priority: High Comment: Optimize blood pressure, hemodynamic monitoring and maintain end-organ Improved renal function, Cr down to 1.1 Off all nephrotoxic medications Renally adjust medication dose (3) Altered mental status Current Visit: Yes Status: Acute Priority: High Comment: More awake, interactive Toxic/metabolic encephalopathy, multifactorial in the sitting of Acute hypercarbic and Hypoxemic respiratory failure (4) Aspiration pneumonia Current Visit: No Status: Resolved Priority: High (5) Pleural effusion, bilateral Current Visit: Yes Status: Acute Priority: High Comment: corrected coagulopathy 09/24, Underwent Left pig tail placement today with about 500 serious fluid drained 09/25, Underwent Right (8 fr) pig tail placement and Left CT removed 10/01, US guided placement of a right chest tube, 8 fr (6) A-fib Current Visit: No Status: Chronic Priority: High Comment: Continue IV Metoprolol, cardiazem HR better Holding Warfarin due to elevated INR and for procedures (7) Seizure disorder Current Visit: No Status: Chronic Priority: Medium Comment: Continue LamoTRIgine [Lamictal] 25 mg BID
[2017-10-21] MEDS ORDERED: Chlorhexidine Gluconate 1 APPL/PKT TP ONE (11:53)
--- NOTE | 2017-10-21 17:29 | CP.PCM.PN ---
Subjective - Date & Time of Evaluation Date of Evaluation: 10/21/17 Time of Evaluation: 11:50 - Subjective Subjective: F/U Respiratory Failure. Pt with eyes open, answer simple questions. Objective - Vital Signs/Intake and Output Vital Signs (last 24 hours): Temp Pulse Resp BP Pulse Ox 98.1 F 71 20 109/50 L 100 10/21/17 16:00 10/21/17 16:42 10/21/17 16:27 10/21/17 17:26 10/21/17 16:00 Intake and Output: 10/21/17 10/21/17 06:59 18:59 Intake Total 1313 1060 Output Total 1100 0 Balance 213 1060 - Medications Medications: Current Medications Acetazolamide (Diamox 250 Mg Tab) 250 mg PO BID [facility] Last Admin: 10/21/17 17:21 Dose: Not Given Calcium Carbonate (Oscal) 500 mg PO BIDWM [facility] Last Admin: 10/21/17 17:08 Dose: 500 mg Cholecalciferol (Vitamin D) 5,000 iu PO DAILY [facility] Last Admin: 10/21/17 08:18 Dose: 5,000 iu Diltiazem HCl (Cardizem) 30 mg PO 0300,0900,1500,2100 [facility] Last Admin: 10/21/17 16:42 Dose: 30 mg Dimethicone (Proshield Plus Skin Protectant) 1 applic TOP Q8 [facility] Last Admin: 10/21/17 17:06 Dose: 1 applic Furosemide (Lasix) 40 mg IV BID [facility] Last Admin: 10/21/17 17:26 Dose: 40 mg Acyclovir 500 mg/ Sodium (Chloride) 100 mls @ 100 mls/hr IV Q8 [facility] PRN Reason: Protocol Last Admin: 10/21/17 16:22 Dose: 100 mls/hr Vancomycin HCl 1 gm/ Sodium (Chloride) 250 mls @ 250 mls/hr IVPB Q24H [facility] PRN Reason: Protocol Last Admin: 10/21/17 12:58 Dose: 250 mls/hr Metronidazole (Flagyl 500mg/100ml Ns) 100 mls @ 100 mls/hr IVPB Q8 [facility] PRN Reason: Protocol Last Admin: 10/21/17 17:18 Dose: 100 mls/hr Lactobacillus Acidophilus (Bacid Acidophilus) 1 cap PO BID [facility] Last Admin: 10/21/17 16:42 Dose: 1 cap Lamotrigine (Lamictal) 50 mg PO Q12 [facility] Last Admin: 10/21/17 08:21 Dose: 50 mg Levothyroxine Sodium (Synthroid) 12.5 mcg PO DAILY@0630 [facility] Last Admin: 10/21/17 05:40 Dose: 12.5 mcg Metoprolol Tartrate (Lopressor) 5 mg IVP Q6 [facility] Last Admin: 10/21/17 15:52 Dose: 5 mg - Labs Labs: 10/21/17 08:15 10/21/17 08:15 PT 17.4 Seconds (9.8-13.1) H 10/16/17 09:20 INR 1.6 (0.9-1.2) H 10/16/17 09:20 APTT 35.0 Seconds (25.6-37.1) D 10/17/17 08:10 - Constitutional Appears: No Acute Distress, Chronically Ill - Head Exam Head Exam: NORMAL INSPECTION - Eye Exam Eye Exam: PERRL - ENT Exam Additional comments: Nose bridge scab - Neck Exam Neck Exam: Normal Inspection - Respiratory Exam Respiratory Exam: Decreased Breath Sounds (at bases), Rhonchi (scattered) - Cardiovascular Exam Cardiovascular Exam: Irregular Rhythm - GI/Abdominal Exam GI & Abdominal Exam: Soft, Normal Bowel Sounds - Extremities Exam Additional comments: Edema extremities - Back Exam Additional comments: Sacrum with DTI - Neurological Exam Neurological Exam: Awake Additional comments: Eyes open, able to talk, generalized weakness. - Skin Skin Exam: Warm Assessment and Plan (1) Acute respiratory failure with hypoxia Status: Acute (2) Altered mental status Status: Acute (3) Pleural effusion, bilateral Status: Acute (4) Hx of seizure disorder Status: Chronic (5) Diastolic CHF, acute on chronic Status: Acute (6) A-fib Status: Chronic (7) Encephalopathy Status: Acute (8) CANDELARIA (acute kidney injury) Status: Acute (9) Anemia Status: Chronic (10) Aortic valve vegetation Status: Acute (11) SUSAN (obstructive sleep apnea) Status: Chronic - Assessment and Plan (Free Text) Plan: Continue high flow O2, BIPAP overnight, pulmonary PT with sport bed, swallow eval, and current treatment ICU Time: 40 min.
[2017-10-22] MEDS: metroNIDAZOLE 500mg/100ml NS 100 ML IVPB SCH ×3 (02:15→16:23)
[2017-10-22] MEDS: Proshield Plus GEL TOP SCH ×3 (02:15→16:37)
[2017-10-22] MEDS: Acyclovir 500 MG in Sodium Chloride 0.9% 100 ML IV SCH ×3 (02:24→16:27)
--- NOTE | 2017-10-22 02:36 | CP.PCM.PN ---
Subjective - Date & Time of Evaluation Date of Evaluation: 10/21/17 Time of Evaluation: 22:20 - Subjective Subjective: Remarkable improve in his mental status, able to answe easy questions, interactive, positive eye to eye contact, may follow simple commands. He is receiving Vancomycin and the trough level is high at 15 He is on IV Flagyl ( Metronidazole) and IV Acyclovir. Objective - Vital Signs/Intake and Output Vital Signs (last 24 hours): Temp Pulse Resp BP Pulse Ox 97.6 F 82 23 121/61 100 10/21/17 20:00 10/22/17 02:16 10/22/17 02:16 10/22/17 02:16 10/22/17 02:16 Intake and Output: 10/21/17 10/22/17 18:59 06:59 Intake Total 1760 390 Output Total 1000 Balance 760 390 - Medications Medications: Current Medications Acetazolamide (Diamox 250 Mg Tab) 250 mg PO BID [facility] Last Admin: 10/21/17 17:21 Dose: Not Given Calcium Carbonate (Oscal) 500 mg PO BIDWM [facility] Last Admin: 10/21/17 17:08 Dose: 500 mg Cholecalciferol (Vitamin D) 5,000 iu PO DAILY [facility] Last Admin: 10/21/17 08:18 Dose: 5,000 iu Diltiazem HCl (Cardizem) 30 mg PO 0300,0900,1500,2100 [facility] Last Admin: 10/22/17 02:16 Dose: 30 mg Dimethicone (Proshield Plus Skin Protectant) 1 applic TOP Q8 [facility] Last Admin: 10/22/17 02:15 Dose: 1 applic Furosemide (Lasix) 40 mg IV BID [facility] Last Admin: 10/21/17 17:26 Dose: 40 mg Acyclovir 500 mg/ Sodium (Chloride) 100 mls @ 100 mls/hr IV Q8 [facility] PRN Reason: Protocol Last Admin: 10/22/17 02:24 Dose: 100 mls/hr Vancomycin HCl 1 gm/ Sodium (Chloride) 250 mls @ 250 mls/hr IVPB Q24H [facility] PRN Reason: Protocol Last Admin: 10/21/17 12:58 Dose: 250 mls/hr Metronidazole (Flagyl 500mg/100ml Ns) 100 mls @ 100 mls/hr IVPB Q8 [facility] PRN Reason: Protocol Last Admin: 10/22/17 02:15 Dose: 100 mls/hr Lactobacillus Acidophilus (Bacid Acidophilus) 1 cap PO BID [facility] Last Admin: 10/21/17 16:42 Dose: 1 cap Lamotrigine (Lamictal) 50 mg PO Q12 [facility] Last Admin: 10/21/17 20:25 Dose: 50 mg Levothyroxine Sodium (Synthroid) 12.5 mcg PO DAILY@0630 [facility] Last Admin: 10/21/17 05:40 Dose: 12.5 mcg Metoprolol Tartrate (Lopressor) 5 mg IVP Q6 [facility] Last Admin: 10/21/17 23:13 Dose: 5 mg - Labs Labs: 10/21/17 08:15 10/21/17 08:15 PT 17.4 Seconds (9.8-13.1) H 10/16/17 09:20 INR 1.6 (0.9-1.2) H 10/16/17 09:20 APTT 35.0 Seconds (25.6-37.1) D 10/17/17 08:10 Assessment and Plan (1) CANDELARIA (acute kidney injury) Status: Acute (2) Acute respiratory failure Status: Acute (3) Altered mental status Status: Acute (4) Pleural effusion, bilateral Status: Acute (5) Pneumonia Status: Acute (6) Seizure disorder Status: Suspected (7) Encephalopathy Status: Acute
[2017-10-22] MEDS: Metoprolol 1 mg/ml Inj IVP SCH ×4 (03:50→21:33)
[2017-10-22 05:38] LABS: BLOOD UREA NITROGEN 36 mg/dl (9-20); CALCIUM 6.9 mg/dL (8.4-10.2); GFR AFRICAN-AMERICAN > 60; GFR NON-AFRICAN AMERICAN > 60
[2017-10-22 06:35] LABS: MEAN CELL VOLUME 93.5 fl (80.0-94.0); MEAN CORPUSCULAR HEMOGLOBIN 29.2 pg (27.0-31.0); MEAN CORPUSCULAR HGB CONC 31.2 g/dL (33.0-37.0); RBC 2.58 Mil/uL (4.40-5.90); RED CELL DISTRIBUTION WIDTH 18.1 % (11.5-14.5); WHITE BLOOD COUNT 6.7 K/uL (4.8-10.8)
[2017-10-22] MEDS: Levothyroxine 25 MCG TAB PO SCH (06:35)
[2017-10-22 06:44] LABS: HEMOGLOBIN 7.5 g/dL (12.0-18.0)
[2017-10-22] MEDS: Lactobacillus Acidophilus 500 MU Cap PO SCH ×2 (09:38→16:25)
[2017-10-22] MEDS: Cholecalciferol 1,000 INTLU TAB PO SCH (09:39)
--- NOTE | 2017-10-22 09:43 | CP.CCUPN ---
CCU Subjective - Physician Review Subjective (Free Text): 10/01/17 16:03 The patient was Seen and examined by me at the bedside, Medical records reviewed and Management issues were discussed and formulated with the house staff. 77 Years old Male with Multiple medical conditions including Atrial Fibrillation (on coumadin), CHF, CVA, HTN, Peripheral Edema, Seizures, Sleep Apnea, TIA Who was brought by EMS along with his to the Emergency Department for AMS Per , she was told by Dr. Escamilla to come to ED for "observation" She states that he has been on antibiotics for cough for 2 days and now develop hallucination secondary to antibiotics. In the ER he was very hypothermic, lethargic but respond to basic commands CXR showing bilateral pleural effusion and bibasilar opacity Tachypnea, placed on 50% VM Blood culture drawn and Received one dose of IV Rocephin and Zithromax Admitted to the ICU for Acute hypercarbic and Hypoxemic respiratory failure and severe sepsis Chest CT scan revealed moderate bilateral pleural effusion with atelectasis PT also had Elevated INR, received TOTAL 4U FFP 09/24, Underwent Left (8 fr) pig tail placement with about 500 serious fluid drained 09/25, Underwent Right (8 fr) pig tail placement and Left CT removed Right pig tail not functioning and Patient Underwent US guided placement of a right chest tube, 8 fr today Also Underwent US guided dual lumen picc placement via the right basilic vein 10/16, Underwent STEVEN with elective cardioversion (negative for clot) 10/22/17 09:45 Today he is more awake, and interactive, comfortable, NAD Clinically improving and hemodynamically stable No Vasopressors Patient on high flow O2 supplement Afebrile and no leucocytosis A-Fib on monitor, HR controlled Tolerating tube feeding Evaluated by Speach therapy, deemed high risk for aspiration and will be re- evaluated Evaluated by PT/OT AM Labs,showing improved renal function, Cr down to 1.1--->0.9 and no leucocytosis CCU Objective - Vital Signs / Intake & Output Vital Signs (Last 4 hours): Vital Signs Temp Pulse Resp BP Pulse Ox 10/22/17 09:39 119/68 10/22/17 09:38 91 H 19 119/68 100 10/22/17 09:37 91 H 119/68 10/22/17 08:35 20 10/22/17 08:00 98.4 F 90 25 H 109/68 100 10/22/17 06:00 88 23 120/68 100 Intake and Output (Last 8hrs): Intake & Output 10/21/17 10/22/17 10/22/17 22:59 06:59 14:59 Intake Total 1290 760 Output Total 1000 Balance 290 760 Intake: Intake, Piggyback 100 Tube Feeding 190 360 Free Water Flush 1000 400 Output: Urine 1000 Urethral (Wang) 1000 Other: # Bowel Movements 1 - Physical Exam Head: Positive for: Atraumatic, Normocephalic Pupils: Positive for: PERRL, Sluggish Extroacular Muscles: Positive for: EOMI Conjunctiva: Positive for: Normal. Negative for: Icteric Ears: Positive for: Normal Mouth: Positive for: Moist Mucous Membranes Pharnyx: Negative for: ERYTHEMA Neck: Positive for: Normal Range of Motion. Negative for: JVD Respiratory/Chest: Positive for: Decreased Breath Sounds, Rhonchi (upper airway rhonchi), Tachypneic. Negative for: Accessory Muscle Use, Wheezes Cardiovascular: Positive for: Irregular Rhythm, Peripheal Pulses Present, Tachycardic. Negative for: Murmurs, Normal S1, S2, Rub Abdomen: Positive for: Normal Bowel Sounds. Negative for: Tenderness, Distention, Peritoneal Signs Upper Extremity: Positive for: Edema Lower Extremity: Positive for: Edema, NORMAL PULSES. Negative for: CALF TENDERNESS, Cyanosis Neurological: Positive for: Other (withdraws to deep pain) Skin: Positive for: Warm, Dry. Negative for: Rashes Psychiatric: Positive for: Alert, Oriented x 3, Lethargic - Medications Active Medications: Active Medications Generic Name Dose Route Start Last Admin Trade Name Freq PRN Reason Stop Dose Admin Acetazolamide 250 mg 10/09/17 17:00 10/22/17 09:39 Diamox 250 Mg Tab PO 250 mg BID [facility] Administration Calcium Carbonate 500 mg 09/26/17 08:00 10/22/17 09:39 Oscal PO 500 mg BIDWM [facility] Administration Cholecalciferol 5,000 iu 10/18/17 09:00 10/22/17 09:39 Vitamin D PO 5,000 iu DAILY [facility] Administration Diltiazem HCl 30 mg 10/18/17 03:00 10/22/17 09:38 Cardizem PO 30 mg 0300,0900,1500,2100 [facility] Administration Dimethicone 1 applic 10/07/17 17:00 10/22/17 02:15 Proshield Plus Skin Protectant TOP 1 applic Q8 [facility]I Administration Furosemide 40 mg 10/15/17 17:00 10/22/17 09:39 Lasix IV 40 mg BID [facility] Administration Acyclovir 500 mg/ Sodium 100 mls @ 100 mls/hr 10/16/17 17:00 10/22/17 02:24 Chloride IV 100 mls/hr Q8 [facility] Administration Protocol Vancomycin HCl 1 gm/ Sodium 250 mls @ 250 mls/hr 10/18/17 13:30 10/21/17 12: 58 Chloride IVPB 250 mls/hr Q24H [facility] Administration Protocol Metronidazole 100 mls @ 100 mls/hr 10/20/17 10:42 10/22/17 09:38 Flagyl 500mg/100ml Ns IVPB 100 mls/hr Q8 [facility] Administration Protocol Lactobacillus Acidophilus 1 cap 10/08/17 09:00 10/22/17 09:38 Bacid Acidophilus PO 1 cap BID [facility] Administration Lamotrigine 50 mg 10/16/17 09:00 10/22/17 09:39 Lamictal PO 50 mg Q12 [facility] Administration Levothyroxine Sodium 12.5 mcg 10/09/17 06:30 10/22/17 06:35 Synthroid PO 12.5 mcg DAILY@0630 [facility] Administration Metoprolol Tartrate 5 mg 10/15/17 16:28 10/22/17 09:37 Lopressor IVP 5 mg Q6 [facility]I Administration - Patient Studies Lab Studies: Lab Studies 10/22/17 10/22/17 10/16/17 Range/Units 06:10 04:20 13:18 WBC 6.7 (4.8-10.8) K/uL RBC 2.58 L (4.40-5.90) Mil/uL Hgb 7.5 L (12.0-18.0) g/dL Hct 24.1 L (35.0-51.0) % MCV 93.5 (80.0-94.0) fl MCH 29.2 (27.0-31.0) pg MCHC 31.2 L (33.0-37.0) g/dL RDW 18.1 H (11.5-14.5) % Plt Count 248 (130-400) K/uL Sodium 141 (132-148) mmol/l Potassium 3.4 L (3.6-5.0) MMOL/L Chloride 112 H (98-107) mmol/L Carbon Dioxide 27 (22-30) mmol/L Anion Gap 5 L (10-20) BUN 36 H (9-20) mg/dl Creatinine 0.9 (0.8-1.5) mg/dl Est GFR ( Amer) > 60 Est GFR (Non-Af Amer) > 60 Random Glucose 119 H (75-110) mg/dL Calcium 6.9 L (8.4-10.2) mg/dL Whole Blood Arsenic 3 (<23) mcg/L Laboratory Results - last 24 hr 10/16/17 10/22/17 10/22/17 13:18 04:20 06:10 WBC 6.7 RBC 2.58 L Hgb 7.5 L Hct 24.1 L MCV 93.5 MCH 29.2 MCHC 31.2 L RDW 18.1 H Plt Count 248 Sodium 141 Potassium 3.4 L Chloride 112 H Carbon Dioxide 27 Anion Gap 5 L BUN 36 H Creatinine 0.9 Est GFR ( Amer) > 60 Est GFR (Non-Af Amer) > 60 Random Glucose 119 H Calcium 6.9 L Whole Blood Arsenic 3 Fingerstick Blood Sugar Results: 83 Assessment/Plan (1) Acute respiratory failure with hypoxia Current Visit: Yes Status: Acute Priority: High Comment: Acute hypercarbic and Hypoxemic respiratory failure secondary to likely aspiration pneumonia with pleural effusion in the setting of severe Respiratory muscle weakness Continue with ICU care for hemodynamic and Respiratory monitoring Successfully extubated IV Vancomycin, Metronidazole and Acyclovir Diuresis with lasix drip Strict I&O, negative fluid balance Aggressive pulmonary toilet, chest PT, suctioning nebulizer treatment Maintain aspiration precautions GI/DVT PPX (2) CANDELARIA (acute kidney injury) Current Visit: Yes Status: Deleted Priority: High Comment: Improved renal function, Cr down to 0.9 Off all nephrotoxic medications Renally adjust medication dose (3) Altered mental status Current Visit: Yes Status: Acute Priority: High Comment: More awake, interactive Toxic/metabolic encephalopathy, multifactorial in the sitting of Acute hypercarbic and Hypoxemic respiratory failure (4) Aspiration pneumonia Current Visit: No Status: Resolved Priority: High (5) Pleural effusion, bilateral Current Visit: Yes Status: Acute Priority: High Comment: corrected coagulopathy 09/24, Underwent Left pig tail placement today with about 500 serious fluid drained 09/25, Underwent Right (8 fr) pig tail placement and Left CT removed 10/01, US guided placement of a right chest tube, 8 fr (6) A-fib Current Visit: No Status: Chronic Priority: High Comment: Continue IV Metoprolol and cardiazem 30 mg PO Q 6H HR better Off AC for now (7) Seizure disorder Current Visit: No Status: Chronic Priority: Medium Comment: Continue LamoTRIgine [Lamictal] 25 mg BID
--- NOTE | 2017-10-22 09:59 | CP.PCM.PN ---
Subjective - Date & Time of Evaluation Date of Evaluation: 10/22/17 Time of Evaluation: 08:00 - Subjective Subjective: repeat cultures still neg cardio recommends rx as endocarditis Dr Cole on board for neuro Objective - Vital Signs/Intake and Output Vital Signs (last 24 hours): Temp Pulse Resp BP Pulse Ox 98.4 F 91 H 19 119/68 100 10/22/17 08:00 10/22/17 09:38 10/22/17 09:38 10/22/17 09:39 10/22/17 09:38 Intake and Output: 10/22/17 10/22/17 06:59 18:59 Intake Total 1150 Balance 1150 - Medications Medications: Current Medications Acetazolamide (Diamox 250 Mg Tab) 250 mg PO BID [facility] Last Admin: 10/22/17 09:39 Dose: 250 mg Calcium Carbonate (Oscal) 500 mg PO BIDWM [facility] Last Admin: 10/22/17 09:39 Dose: 500 mg Cholecalciferol (Vitamin D) 5,000 iu PO DAILY [facility] Last Admin: 10/22/17 09:39 Dose: 5,000 iu Diltiazem HCl (Cardizem) 30 mg PO 0300,0900,1500,2100 [facility] Last Admin: 10/22/17 09:38 Dose: 30 mg Dimethicone (Proshield Plus Skin Protectant) 1 applic TOP Q8 [facility] Last Admin: 10/22/17 02:15 Dose: 1 applic Furosemide (Lasix) 40 mg IV BID [facility] Last Admin: 10/22/17 09:39 Dose: 40 mg Acyclovir 500 mg/ Sodium (Chloride) 100 mls @ 100 mls/hr IV Q8 [facility] PRN Reason: Protocol Last Admin: 10/22/17 02:24 Dose: 100 mls/hr Vancomycin HCl 1 gm/ Sodium (Chloride) 250 mls @ 250 mls/hr IVPB Q24H [facility] PRN Reason: Protocol Last Admin: 10/21/17 12:58 Dose: 250 mls/hr Metronidazole (Flagyl 500mg/100ml Ns) 100 mls @ 100 mls/hr IVPB Q8 [facility] PRN Reason: Protocol Last Admin: 10/22/17 09:38 Dose: 100 mls/hr Lactobacillus Acidophilus (Bacid Acidophilus) 1 cap PO BID [facility] Last Admin: 10/22/17 09:38 Dose: 1 cap Lamotrigine (Lamictal) 50 mg PO Q12 [facility] Last Admin: 10/22/17 09:39 Dose: 50 mg Levothyroxine Sodium (Synthroid) 12.5 mcg PO DAILY@0630 [facility] Last Admin: 10/22/17 06:35 Dose: 12.5 mcg Metoprolol Tartrate (Lopressor) 5 mg IVP Q6 [facility] Last Admin: 10/22/17 09:37 Dose: 5 mg - Labs Labs: 10/22/17 06:10 10/22/17 04:20 PT 17.4 Seconds (9.8-13.1) H 10/16/17 09:20 INR 1.6 (0.9-1.2) H 10/16/17 09:20 APTT 35.0 Seconds (25.6-37.1) D 10/17/17 08:10 - Constitutional Appears: Chronically Ill - Head Exam Head Exam: NORMOCEPHALIC - Eye Exam Eye Exam: absent: Scleral icterus - ENT Exam ENT Exam: Mucous Membranes Dry - Neck Exam Neck Exam: absent: Lymphadenopathy - Respiratory Exam Respiratory Exam: Decreased Breath Sounds - Cardiovascular Exam Cardiovascular Exam: REGULAR RHYTHM - GI/Abdominal Exam GI & Abdominal Exam: Distended, Soft - Rectal Exam Rectal Exam: Deferred - Exam Exam: NORMAL INSPECTION - Extremities Exam Extremities Exam: Tenderness. absent: Calf Tenderness, Pedal Edema Assessment and Plan (1) CANDELARIA (acute kidney injury) Status: Acute (2) Acute respiratory failure Status: Acute (3) Altered mental status Status: Acute (4) Diastolic CHF, acute on chronic Status: Acute (5) Pleural effusion, bilateral Status: Acute (6) Pneumonia Status: Acute (7) Aortic valve vegetation Status: Acute
--- NOTE | 2017-10-22 11:50 | CP.PCM.PN ---
Subjective - Date & Time of Evaluation Date of Evaluation: 10/22/17 Time of Evaluation: 11:49 - Subjective Subjective: More awake and responsive today Telemetry - SR with PAC's Objective - Vital Signs/Intake and Output Vital Signs (last 24 hours): Temp Pulse Resp BP Pulse Ox 98.4 F 91 H 19 119/68 100 10/22/17 08:00 10/22/17 09:38 10/22/17 09:38 10/22/17 09:39 10/22/17 09:38 Intake and Output: 10/22/17 10/22/17 06:59 18:59 Intake Total 1150 Balance 1150 - Medications Medications: Current Medications Acetazolamide (Diamox 250 Mg Tab) 250 mg PO BID [facility] Last Admin: 10/22/17 09:39 Dose: 250 mg Calcium Carbonate (Oscal) 500 mg PO BIDWM [facility] Last Admin: 10/22/17 09:39 Dose: 500 mg Cholecalciferol (Vitamin D) 5,000 iu PO DAILY [facility] Last Admin: 10/22/17 09:39 Dose: 5,000 iu Diltiazem HCl (Cardizem) 30 mg PO 0300,0900,1500,2100 [facility] Last Admin: 10/22/17 09:38 Dose: 30 mg Dimethicone (Proshield Plus Skin Protectant) 1 applic TOP Q8 [facility] Last Admin: 10/22/17 02:15 Dose: 1 applic Furosemide (Lasix) 40 mg IV BID [facility] Last Admin: 10/22/17 09:39 Dose: 40 mg Acyclovir 500 mg/ Sodium (Chloride) 100 mls @ 100 mls/hr IV Q8 [facility] PRN Reason: Protocol Last Admin: 10/22/17 02:24 Dose: 100 mls/hr Vancomycin HCl 1 gm/ Sodium (Chloride) 250 mls @ 250 mls/hr IVPB Q24H [facility] PRN Reason: Protocol Last Admin: 10/21/17 12:58 Dose: 250 mls/hr Metronidazole (Flagyl 500mg/100ml Ns) 100 mls @ 100 mls/hr IVPB Q8 [facility] PRN Reason: Protocol Last Admin: 10/22/17 09:38 Dose: 100 mls/hr Lactobacillus Acidophilus (Bacid Acidophilus) 1 cap PO BID [facility] Last Admin: 10/22/17 09:38 Dose: 1 cap Lamotrigine (Lamictal) 50 mg PO Q12 [facility] Last Admin: 10/22/17 09:39 Dose: 50 mg Levothyroxine Sodium (Synthroid) 12.5 mcg PO DAILY@0630 [facility] Last Admin: 10/22/17 06:35 Dose: 12.5 mcg Metoprolol Tartrate (Lopressor) 5 mg IVP Q6 [facility] Last Admin: 10/22/17 09:37 Dose: 5 mg - Labs Labs: 10/22/17 06:10 10/22/17 04:20 PT 17.4 Seconds (9.8-13.1) H 10/16/17 09:20 INR 1.6 (0.9-1.2) H 10/16/17 09:20 APTT 35.0 Seconds (25.6-37.1) D 10/17/17 08:10 - Constitutional Appears: Well - Head Exam Head Exam: ATRAUMATIC, NORMAL INSPECTION, NORMOCEPHALIC - Eye Exam Eye Exam: EOMI, Normal appearance, PERRL Pupil Exam: NORMAL ACCOMODATION, PERRL - ENT Exam ENT Exam: Mucous Membranes Moist, Normal Exam - Neck Exam Neck Exam: Full ROM, Normal Inspection. absent: Lymphadenopathy - Respiratory Exam Respiratory Exam: Clear to Ausculation Bilateral, NORMAL BREATHING PATTERN - Cardiovascular Exam Cardiovascular Exam: REGULAR RHYTHM, +S1, +S2, Murmur - GI/Abdominal Exam GI & Abdominal Exam: Soft, Normal Bowel Sounds. absent: Tenderness - Extremities Exam Extremities Exam: Full ROM, Normal Capillary Refill, Normal Inspection. absent : Joint Swelling, Pedal Edema - Back Exam Back Exam: NORMAL INSPECTION - Neurological Exam Neurological Exam: Alert, Awake, CN II-XII Intact, Normal Gait, Oriented x3 - Psychiatric Exam Psychiatric exam: Normal Affect, Normal Mood - Skin Skin Exam: Dry, Intact, Normal Color, Warm Assessment and Plan (1) A-fib Status: Chronic (2) Acute on chronic diastolic (congestive) heart failure Status: Chronic (3) Acute respiratory failure with hypoxia Status: Acute (4) Altered mental status Status: Deleted (5) HTN (hypertension) Status: Chronic (6) Seizure disorder Status: Chronic (7) CANDELARIA (acute kidney injury) Status: Resolved (8) Encephalopathy Status: Acute (9) Hypothermia Status: Deleted (10) Pleural effusion, bilateral Status: Acute (11) Supratherapeutic international normalized ratio (INR) Status: Acute (12) Acute decompensated heart failure Status: Acute (13) Atrial fibrillation with RVR Status: Acute
--- NOTE | 2017-10-22 15:18 | CP.PCM.PN ---
Subjective - Date & Time of Evaluation Date of Evaluation: 10/22/17 Time of Evaluation: 11:10 - Subjective Subjective: F/U Respiratory failure. Pt with eyes open, able to talk, at bedside. Objective - Vital Signs/Intake and Output Vital Signs (last 24 hours): Temp Pulse Resp BP Pulse Ox 98.5 F 101 H 21 113/74 100 10/22/17 12:00 10/22/17 12:00 10/22/17 12:00 10/22/17 12:00 10/22/17 12:00 Intake and Output: 10/22/17 10/22/17 06:59 18:59 Intake Total 1150 Balance 1150 - Medications Medications: Current Medications Acetazolamide (Diamox 250 Mg Tab) 250 mg PO BID [facility] Last Admin: 10/22/17 09:39 Dose: 250 mg Calcium Carbonate (Oscal) 500 mg PO BIDWM [facility] Last Admin: 10/22/17 09:39 Dose: 500 mg Cholecalciferol (Vitamin D) 5,000 iu PO DAILY [facility] Last Admin: 10/22/17 09:39 Dose: 5,000 iu Diltiazem HCl (Cardizem) 30 mg PO 0300,0900,1500,2100 [facility] Last Admin: 10/22/17 09:38 Dose: 30 mg Dimethicone (Proshield Plus Skin Protectant) 1 applic TOP Q8 [facility] Last Admin: 10/22/17 02:15 Dose: 1 applic Furosemide (Lasix) 40 mg IV BID [facility] Last Admin: 10/22/17 09:39 Dose: 40 mg Acyclovir 500 mg/ Sodium (Chloride) 100 mls @ 100 mls/hr IV Q8 [facility] PRN Reason: Protocol Last Admin: 10/22/17 02:24 Dose: 100 mls/hr Vancomycin HCl 1 gm/ Sodium (Chloride) 250 mls @ 250 mls/hr IVPB Q24H [facility] PRN Reason: Protocol Last Admin: 10/21/17 12:58 Dose: 250 mls/hr Metronidazole (Flagyl 500mg/100ml Ns) 100 mls @ 100 mls/hr IVPB Q8 [facility] PRN Reason: Protocol Last Admin: 10/22/17 09:38 Dose: 100 mls/hr Lactobacillus Acidophilus (Bacid Acidophilus) 1 cap PO BID [facility] Last Admin: 10/22/17 09:38 Dose: 1 cap Lamotrigine (Lamictal) 50 mg PO Q12 [facility] Last Admin: 10/22/17 09:39 Dose: 50 mg Levothyroxine Sodium (Synthroid) 12.5 mcg PO DAILY@0630 [facility] Last Admin: 10/22/17 06:35 Dose: 12.5 mcg Metoprolol Tartrate (Lopressor) 5 mg IVP Q6 [facility] Last Admin: 10/22/17 09:37 Dose: 5 mg - Labs Labs: 10/22/17 06:10 10/22/17 04:20 PT 17.4 Seconds (9.8-13.1) H 10/16/17 09:20 INR 1.6 (0.9-1.2) H 10/16/17 09:20 APTT 35.0 Seconds (25.6-37.1) D 10/17/17 08:10 - Constitutional Appears: No Acute Distress, Chronically Ill - Head Exam Head Exam: NORMAL INSPECTION - Eye Exam Eye Exam: PERRL - ENT Exam Additional comments: Nose bridge scab - Neck Exam Neck Exam: Normal Inspection - Respiratory Exam Respiratory Exam: Decreased Breath Sounds (b/l), Rhonchi (scattered) - Cardiovascular Exam Cardiovascular Exam: Irregular Rhythm - GI/Abdominal Exam GI & Abdominal Exam: Soft, Normal Bowel Sounds - Extremities Exam Additional comments: Edema extremities. - Back Exam Additional comments: DTI sacrum - Neurological Exam Neurological Exam: Alert Additional comments: Eyes open, able to talk, generalized weakness. - Skin Skin Exam: Warm Assessment and Plan (1) Acute respiratory failure with hypoxia Status: Acute (2) Pleural effusion, bilateral Status: Acute (3) Hx of seizure disorder Status: Chronic (4) Diastolic CHF, acute on chronic Status: Acute (5) A-fib Status: Chronic (6) Encephalopathy Status: Acute (7) CANDELARIA (acute kidney injury) Status: Acute (8) Anemia Status: Chronic (9) Aortic valve vegetation Status: Acute (10) SUSAN (obstructive sleep apnea) Status: Chronic - Assessment and Plan (Free Text) Plan: Continue pulmonary toilet., Dialtizem , Lasix , Vanco Flagyl and rest of treatment ICU Time: 38 min.
--- NOTE | 2017-10-23 00:30 | CP.PCM.PN ---
Subjective - Date & Time of Evaluation Date of Evaluation: 10/22/17 Time of Evaluation: 21:40 - Subjective Subjective: Patient is reported to be responsive and interactive. Currently he is sleepy but responsive to verbal and tactile stimuli. He is on high flow Oxygen. He is on Vancomycin,, Flagyl and Acyclovir. 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 there is no seizures on Lamictal 50 mg Q !2 hrs. Objective - Vital Signs/Intake and Output Vital Signs (last 24 hours): Temp Pulse Resp BP Pulse Ox 97.1 F L 80 12 109/57 L 100 10/22/17 20:00 10/22/17 23:56 10/22/17 22:00 10/22/17 22:00 10/22/17 22:00 Intake and Output: 10/22/17 10/23/17 18:59 06:59 Intake Total 290 Output Total 1400 Balance -1400 290 - Medications Medications: Current Medications Acetazolamide (Diamox 250 Mg Tab) 250 mg PO BID [facility] Last Admin: 10/22/17 16:22 Dose: 250 mg Calcium Carbonate (Oscal) 500 mg PO BIDWM [facility] Last Admin: 10/22/17 16:24 Dose: 500 mg Cholecalciferol (Vitamin D) 5,000 iu PO DAILY [facility] Last Admin: 10/22/17 09:39 Dose: 5,000 iu Diltiazem HCl (Cardizem) 30 mg PO 0300,0900,1500,2100 [facility] Last Admin: 10/22/17 20:19 Dose: 30 mg Furosemide (Lasix) 40 mg IV BID [facility] Last Admin: 10/22/17 16:23 Dose: 40 mg Acyclovir 500 mg/ Sodium (Chloride) 100 mls @ 100 mls/hr IV Q8 [facility] PRN Reason: Protocol Last Admin: 10/22/17 16:27 Dose: 100 mls/hr Vancomycin HCl 1 gm/ Sodium (Chloride) 250 mls @ 250 mls/hr IVPB Q24H [facility] PRN Reason: Protocol Last Admin: 10/22/17 14:00 Dose: 250 mls/hr Metronidazole (Flagyl 500mg/100ml Ns) 100 mls @ 100 mls/hr IVPB Q8 [facility] PRN Reason: Protocol Last Admin: 10/22/17 16:23 Dose: 100 mls/hr Lactobacillus Acidophilus (Bacid Acidophilus) 1 cap PO BID [facility] Last Admin: 10/22/17 16:25 Dose: 1 cap Lamotrigine (Lamictal) 50 mg PO Q12 [facility] Last Admin: 10/22/17 20:19 Dose: 50 mg Levothyroxine Sodium (Synthroid) 12.5 mcg PO DAILY@0630 [facility] Last Admin: 10/22/17 06:35 Dose: 12.5 mcg Metoprolol Tartrate (Lopressor) 5 mg IVP Q6 [facility] Last Admin: 10/22/17 21:33 Dose: 5 mg - Labs Labs: 10/22/17 06:10 10/22/17 04:20 PT 17.4 Seconds (9.8-13.1) H 10/16/17 09:20 INR 1.6 (0.9-1.2) H 10/16/17 09:20 APTT 35.0 Seconds (25.6-37.1) D 10/17/17 08:10 Assessment and Plan (1) CANDELARIA (acute kidney injury) Status: Acute (2) Acute respiratory failure Status: Acute (3) Altered mental status Status: Acute (4) Pleural effusion, bilateral Status: Acute (5) Pneumonia Status: Acute (6) Seizure disorder Status: Suspected (7) Encephalopathy Status: Acute
[2017-10-23] MEDS: metroNIDAZOLE 500mg/100ml NS 100 ML IVPB SCH ×3 (02:07→17:04)
[2017-10-23] MEDS: Acyclovir 500 MG in Sodium Chloride 0.9% 100 ML IV SCH ×3 (02:07→17:04)
[2017-10-23] MEDS: Metoprolol 1 mg/ml Inj IVP SCH ×4 (05:25→21:01)
[2017-10-23 05:26] LABS: MEAN CELL VOLUME 94.6 fl (80.0-94.0); MEAN CORPUSCULAR HEMOGLOBIN 29.8 pg (27.0-31.0); MEAN CORPUSCULAR HGB CONC 31.5 g/dL (33.0-37.0); RBC 2.29 Mil/uL (4.40-5.90); RED CELL DISTRIBUTION WIDTH 19.4 % (11.5-14.5); WHITE BLOOD COUNT 5.7 K/uL (4.8-10.8)
[2017-10-23 05:32] LABS: HEMOGLOBIN 6.8 g/dL (12.0-18.0)
[2017-10-23 06:15] LABS: BLOOD UREA NITROGEN 36 mg/dl (9-20); CALCIUM 7.8 mg/dL (8.4-10.2); GFR AFRICAN-AMERICAN > 60; GFR NON-AFRICAN AMERICAN > 60
[2017-10-23] MEDS: Levothyroxine 25 MCG TAB PO SCH (06:38)
[2017-10-23] MEDS: Lactobacillus Acidophilus 500 MU Cap PO SCH ×2 (08:51→17:06)
[2017-10-23] MEDS: Cholecalciferol 1,000 INTLU TAB PO SCH (08:52)
--- NOTE | 2017-10-23 08:55 | CP.CCUPN ---
CCU Subjective - Physician Review Subjective (Free Text): Uneventful overnight again, he does open eyes spontaneously briefly, but not consistently following simple commands nor is he interactive, nor spontaneously conversant. Remains on 50% oxygen and 30 LPM on HFNC. No active bleeding noted , has returned back to A Fib at 78/min. No sustained, excessive tachycardic episodes with max HR approx. 110. Other vitals and I/O's reviewed. No fever spikes; fluid balance positive 1.90 Liters last 24H. ROS: Unobtainable due to lethargy, non verbal. No other pertinent negs or positives on 10+ system review. PMSFH: All other Nursing and physician documentation reviewed to date; no new pertinent info noted relevant to current medical problems. CXR: (my interp)- none since 10/18/17. IMPRESSION / MAJOR PROBLEMS NOW: 1. Acute Resp ( Hypoxemic) failure 2 bilat effusions, and compressive atelectasis, unclear if any superimposed pneumonitic process. 2. Encephalopathy: etiology unclear, ?? metabolic vs cryptogenic seizures vs ?? CVA?? 3. Chronic A Fib, presently with controlled VR 4. r/o Cardiomyopathy vs Diastolic Dysfx CHF- non-invasive TTE shows preserved EF. 5. Azotemia, CKD III ( Bun/Cr was 36/1.5 at the time of last hospital discharge) 6. Warfarin induced-coagulopathy PLAN: 1. PRBCs have been ordered for repeat transfusion. 2. Will discuss with PMD/PULM regarding further CXRs and aggressiveness of repeat thoracenteses. His Oxygen requirements remain the same, but have not been able to be decreased. He continue to diurese with Lasix with no loss of weight. 3. He is off Lovenox ( was allowed to and not renewed): need to clarify with Cardio whether he should be resumed if no new anticipated procedures expected today or upcoming over the next few days. 4. Lamotrigine levels 0/6 (low) on 10/16/17. Notify Neuro of result and if therapeutic levels need to be achieved. He has not exhibited any obvious external seizure activity. Possible cryptogenic seizures?? 5. Bedside Physical Therapy if neuromental status continues to improve and he follows commands. Pulm Sport bed placed and chest Physiotherapy Q4H as tolerated for now. 6. ID: empiric Acyclovir. Ongoing Flagyl / Vanco coverage. Vanco levels are elevated. CCU Objective - Vital Signs / Intake & Output Vital Signs (Last 4 hours): Vital Signs Temp Pulse Resp BP Pulse Ox 10/23/17 08:51 94 H 121/66 10/23/17 08:14 20 10/23/17 08:00 98.3 F 79 21 121/66 100 10/23/17 06:00 93 H 20 122/73 100 10/23/17 05:25 110 H 122/73 10/23/17 05:02 21 Intake and Output (Last 8hrs): Intake & Output 10/22/17 10/23/17 10/23/17 22:59 06:59 14:59 Intake Total 290 960 Output Total 1400 800 Balance -1110 160 Intake: Intake, Piggyback 200 Tube Feeding 90 360 Free Water Flush 200 400 Output: Urine 1400 800 Urethral (Wang) 1400 800 Other: # Bowel Movements 1 - Physical Exam Head: Positive for: Atraumatic, Normocephalic Pupils: Positive for: PERRL, Sluggish Extroacular Muscles: Positive for: EOMI Conjunctiva: Positive for: Normal. Negative for: Icteric Ears: Positive for: Normal Mouth: Positive for: Moist Mucous Membranes Pharnyx: Negative for: ERYTHEMA Neck: Positive for: Normal Range of Motion. Negative for: JVD Respiratory/Chest: Positive for: Decreased Breath Sounds, Rhonchi (upper airway rhonchi), Tachypneic. Negative for: Accessory Muscle Use, Wheezes Cardiovascular: Positive for: Irregular Rhythm, Peripheal Pulses Present, Tachycardic. Negative for: Murmurs, Normal S1, S2, Rub Abdomen: Positive for: Normal Bowel Sounds. Negative for: Tenderness, Distention, Peritoneal Signs Upper Extremity: Positive for: Edema Lower Extremity: Positive for: Edema, NORMAL PULSES. Negative for: CALF TENDERNESS, Cyanosis Neurological: Positive for: Other (withdraws to deep pain) Skin: Positive for: Warm, Dry. Negative for: Rashes Psychiatric: Positive for: Alert, Oriented x 3, Lethargic - Medications Active Medications: Active Medications Generic Name Dose Route Start Last Admin Trade Name Freq PRN Reason Stop Dose Admin Acetazolamide 250 mg 10/09/17 17:00 10/23/17 08:51 Diamox 250 Mg Tab PO 250 mg BID [facility] Administration Calcium Carbonate 500 mg 09/26/17 08:00 10/23/17 08:51 Oscal PO 500 mg BIDWM [facility] Administration Cholecalciferol 5,000 iu 10/18/17 09:00 10/23/17 08:52 Vitamin D PO 5,000 iu DAILY [facility] Administration Diltiazem HCl 30 mg 10/18/17 03:00 10/23/17 08:51 Cardizem PO 30 mg 0300,0900,1500,2100 [facility] Administration Furosemide 40 mg 10/15/17 17:00 10/23/17 08:51 Lasix IV 40 mg BID [facility] Administration Acyclovir 500 mg/ Sodium 100 mls @ 100 mls/hr 10/16/17 17:00 10/23/17 08:52 Chloride IV 100 mls/hr Q8 [facility] Administration Protocol Vancomycin HCl 1 gm/ Sodium 250 mls @ 250 mls/hr 10/18/17 13:30 10/22/17 14: 00 Chloride IVPB 250 mls/hr Q24H [facility] Administration Protocol Metronidazole 100 mls @ 100 mls/hr 10/20/17 10:42 10/23/17 08:53 Flagyl 500mg/100ml Ns IVPB 100 mls/hr Q8 [facility] Administration Protocol Lactobacillus Acidophilus 1 cap 10/08/17 09:00 10/23/17 08:51 Bacid Acidophilus PO 1 cap BID [facility] Administration Lamotrigine 50 mg 10/16/17 09:00 10/23/17 08:51 Lamictal PO 50 mg Q12 [facility] Administration Levothyroxine Sodium 12.5 mcg 10/09/17 06:30 10/23/17 06:38 Synthroid PO 12.5 mcg DAILY@0630 [facility] Administration Metoprolol Tartrate 5 mg 10/15/17 16:28 10/23/17 05:25 Lopressor IVP 5 mg Q6 [facility] Administration - Patient Studies Lab Studies: Lab Studies 10/23/17 10/23/17 10/23/17 Range/Units 06:31 04:30 04:30 WBC 5.7 (4.8-10.8) K/uL RBC 2.29 L (4.40-5.90) Mil/uL Hgb 6.8 L (12.0-18.0) g/dL Hct 21.7 L (35.0-51.0) % MCV 94.6 H (80.0-94.0) fl MCH 29.8 (27.0-31.0) pg MCHC 31.5 L (33.0-37.0) g/dL RDW 19.4 H (11.5-14.5) % Plt Count 225 (130-400) K/uL Sodium 140 (132-148) mmol/l Potassium 3.9 (3.6-5.0) MMOL/L Chloride 107 (98-107) mmol/L Carbon Dioxide 29 (22-30) mmol/L Anion Gap 8 L (10-20) BUN 36 H (9-20) mg/dl Creatinine 1.1 (0.8-1.5) mg/dl Est GFR ( Amer) > 60 Est GFR (Non-Af Amer) > 60 Random Glucose 139 H (75-110) mg/dL Calcium 7.8 L (8.4-10.2) mg/dL Vancomycin Trough (5.0-10.0) ug/mL Blood Type O POSITIVE Antibody Screen Negative Crossmatch See Detail BBK History Checked Patient has bt 10/23/17 Range/Units 04:20 WBC (4.8-10.8) K/uL RBC (4.40-5.90) Mil/uL Hgb (12.0-18.0) g/dL Hct (35.0-51.0) % MCV (80.0-94.0) fl MCH (27.0-31.0) pg MCHC (33.0-37.0) g/dL RDW (11.5-14.5) % Plt Count (130-400) K/uL Sodium (132-148) mmol/l Potassium (3.6-5.0) MMOL/L Chloride (98-107) mmol/L Carbon Dioxide (22-30) mmol/L Anion Gap (10-20) BUN (9-20) mg/dl Creatinine (0.8-1.5) mg/dl Est GFR ( Amer) Est GFR (Non-Af Amer) Random Glucose (75-110) mg/dL Calcium (8.4-10.2) mg/dL Vancomycin Trough 16.3 H (5.0-10.0) ug/mL Blood Type Antibody Screen Crossmatch BBK History Checked Laboratory Results - last 24 hr 10/23/17 10/23/17 10/23/17 04:20 04:30 04:30 WBC 5.7 RBC 2.29 L Hgb 6.8 L Hct 21.7 L MCV 94.6 H MCH 29.8 MCHC 31.5 L RDW 19.4 H Plt Count 225 Sodium 140 Potassium 3.9 Chloride 107 Carbon Dioxide 29 Anion Gap 8 L BUN 36 H Creatinine 1.1 Est GFR ( Amer) > 60 Est GFR (Non-Af Amer) > 60 Random Glucose 139 H Calcium 7.8 L Vancomycin Trough 16.3 H Blood Type Antibody Screen Crossmatch BBK History Checked 10/23/17 06:31 WBC RBC Hgb Hct MCV MCH MCHC RDW Plt Count Sodium Potassium Chloride Carbon Dioxide Anion Gap BUN Creatinine Est GFR ( Amer) Est GFR (Non-Af Amer) Random Glucose Calcium Vancomycin Trough Blood Type O POSITIVE Antibody Screen Negative Crossmatch See Detail BBK History Checked Patient has bt Fingerstick Blood Sugar Results: 83 Review of Systems - Review of Systems Systems not reviewed;Unavailable: Altered Mental Status
--- NOTE | 2017-10-23 08:57 | CP.PCM.PN ---
Subjective - Date & Time of Evaluation Date of Evaluation: 10/23/17 Time of Evaluation: 08:57 - Subjective Subjective: more awak and responsive telemetry - intermittent afib with NSR with PAC's mentation improving on IV lasix Objective - Vital Signs/Intake and Output Vital Signs (last 24 hours): Temp Pulse Resp BP Pulse Ox 98.3 F 94 H 20 121/66 100 10/23/17 08:00 10/23/17 08:51 10/23/17 08:14 10/23/17 08:51 10/23/17 08:00 Intake and Output: 10/23/17 10/23/17 06:59 18:59 Intake Total 1250 Output Total 800 Balance 450 - Medications Medications: Current Medications Acetazolamide (Diamox 250 Mg Tab) 250 mg PO BID [facility] Last Admin: 10/23/17 08:51 Dose: 250 mg Calcium Carbonate (Oscal) 500 mg PO BIDWM [facility] Last Admin: 10/23/17 08:51 Dose: 500 mg Cholecalciferol (Vitamin D) 5,000 iu PO DAILY [facility] Last Admin: 10/23/17 08:52 Dose: 5,000 iu Diltiazem HCl (Cardizem) 30 mg PO 0300,0900,1500,2100 [facility] Last Admin: 10/23/17 08:51 Dose: 30 mg Furosemide (Lasix) 40 mg IV BID [facility] Last Admin: 10/23/17 08:51 Dose: 40 mg Acyclovir 500 mg/ Sodium (Chloride) 100 mls @ 100 mls/hr IV Q8 [facility] PRN Reason: Protocol Last Admin: 10/23/17 08:52 Dose: 100 mls/hr Vancomycin HCl 1 gm/ Sodium (Chloride) 250 mls @ 250 mls/hr IVPB Q24H [facility] PRN Reason: Protocol Last Admin: 10/22/17 14:00 Dose: 250 mls/hr Metronidazole (Flagyl 500mg/100ml Ns) 100 mls @ 100 mls/hr IVPB Q8 [facility] PRN Reason: Protocol Last Admin: 10/23/17 08:53 Dose: 100 mls/hr Lactobacillus Acidophilus (Bacid Acidophilus) 1 cap PO BID [facility] Last Admin: 10/23/17 08:51 Dose: 1 cap Lamotrigine (Lamictal) 50 mg PO Q12 [facility] Last Admin: 10/23/17 08:51 Dose: 50 mg Levothyroxine Sodium (Synthroid) 12.5 mcg PO DAILY@0630 [facility] Last Admin: 10/23/17 06:38 Dose: 12.5 mcg Metoprolol Tartrate (Lopressor) 5 mg IVP Q6 [facility] Last Admin: 10/23/17 05:25 Dose: 5 mg - Labs Labs: 10/23/17 04:30 10/23/17 04:30 PT 17.4 Seconds (9.8-13.1) H 10/16/17 09:20 INR 1.6 (0.9-1.2) H 10/16/17 09:20 APTT 35.0 Seconds (25.6-37.1) D 10/17/17 08:10 - Constitutional Appears: Well - Head Exam Head Exam: ATRAUMATIC, NORMAL INSPECTION, NORMOCEPHALIC - Eye Exam Eye Exam: EOMI, Normal appearance, PERRL Pupil Exam: NORMAL ACCOMODATION, PERRL - ENT Exam ENT Exam: Mucous Membranes Moist, Normal Exam - Neck Exam Neck Exam: Full ROM, Normal Inspection. absent: Lymphadenopathy - Respiratory Exam Respiratory Exam: Clear to Ausculation Bilateral, Rales, Rhonchi, NORMAL BREATHING PATTERN - Cardiovascular Exam Cardiovascular Exam: Irregular Rhythm, +S1, +S2, Murmur - GI/Abdominal Exam GI & Abdominal Exam: Soft, Normal Bowel Sounds. absent: Tenderness - Extremities Exam Extremities Exam: Full ROM, Normal Capillary Refill, Normal Inspection. absent : Joint Swelling, Pedal Edema - Back Exam Back Exam: NORMAL INSPECTION - Neurological Exam Neurological Exam: Alert, Awake, CN II-XII Intact, Normal Gait, Oriented x3 - Psychiatric Exam Psychiatric exam: Normal Affect, Normal Mood - Skin Skin Exam: Dry, Intact, Normal Color, Warm Assessment and Plan (1) A-fib Assessment & Plan: rate controlled intermittent to resume OAC cont bb and ccb Status: Chronic (2) Acute on chronic diastolic (congestive) heart failure Assessment & Plan: BNP 1200 trending down add aldactone 25mg po daily Status: Chronic (3) Acute respiratory failure with hypoxia Status: Acute (4) Altered mental status Status: Acute (5) HTN (hypertension) Status: Deleted (6) Seizure disorder Status: Chronic (7) CANDELARIA (acute kidney injury) Status: Acute (8) Encephalopathy Status: Acute (9) Hypothermia Status: Deleted (10) Pleural effusion, bilateral Status: Acute (11) Supratherapeutic international normalized ratio (INR) Status: Acute (12) Acute decompensated heart failure Status: Acute (13) Atrial fibrillation with RVR Status: Acute
[2017-10-23] MEDS: Proshield Plus GEL TOP SCH ×2 (09:00→17:03)
[2017-10-23 11:06] LABS: IRON 37 ug/dL (49-181)
[2017-10-23 11:15] LABS: TOTAL IRON BINDING CAPACITY 214 ug/dL (250-450)
[2017-10-23 11:17] LABS: % IRON SATURATION 17 % (20-55)
[2017-10-23 11:44] LABS: FERRITIN 44.5 ng/Ml (17.9-464)
--- NOTE | 2017-10-23 13:32 | CP.PCM.PN ---
Subjective - Date & Time of Evaluation Date of Evaluation: 10/23/17 Time of Evaluation: 07:00 - Subjective Subjective: REMAINS CONFUSED MOST OF THE TIME- WAXES AND WANES DR SUE ON BOARD MAY NEED LP Objective - Vital Signs/Intake and Output Vital Signs (last 24 hours): Temp Pulse Resp BP Pulse Ox 98.5 F 89 21 134/84 100 10/23/17 12:00 10/23/17 12:00 10/23/17 12:00 10/23/17 12:00 10/23/17 12:00 Intake and Output: 10/23/17 10/23/17 06:59 18:59 Intake Total 1250 Output Total 800 Balance 450 - Medications Medications: Current Medications Acetazolamide (Diamox 250 Mg Tab) 250 mg PO BID [facility] Last Admin: 10/23/17 08:51 Dose: 250 mg Calcium Carbonate (Oscal) 500 mg PO BIDWM [facility] Last Admin: 10/23/17 08:51 Dose: 500 mg Cholecalciferol (Vitamin D) 5,000 iu PO DAILY [facility] Last Admin: 10/23/17 08:52 Dose: 5,000 iu Diltiazem HCl (Cardizem) 30 mg PO 0300,0900,1500,2100 [facility] Last Admin: 10/23/17 08:51 Dose: 30 mg Dimethicone (Proshield Plus Skin Protectant) 1 applic TOP Q8 [facility] Furosemide (Lasix) 40 mg IV BID [facility] Last Admin: 10/23/17 08:51 Dose: 40 mg Acyclovir 500 mg/ Sodium (Chloride) 100 mls @ 100 mls/hr IV Q8 [facility] PRN Reason: Protocol Last Admin: 10/23/17 08:52 Dose: 100 mls/hr Metronidazole (Flagyl 500mg/100ml Ns) 100 mls @ 100 mls/hr IVPB Q8 [facility] PRN Reason: Protocol Last Admin: 10/23/17 08:53 Dose: 100 mls/hr Vancomycin HCl 750 mg/ Sodium (Chloride) 250 mls @ 250 mls/hr IVPB Q24H [facility] PRN Reason: Protocol Lactobacillus Acidophilus (Bacid Acidophilus) 1 cap PO BID [facility] Last Admin: 10/23/17 08:51 Dose: 1 cap Lamotrigine (Lamictal) 50 mg PO Q12 [facility] Last Admin: 10/23/17 08:51 Dose: 50 mg Levothyroxine Sodium (Synthroid) 12.5 mcg PO DAILY@0630 [facility] Last Admin: 10/23/17 06:38 Dose: 12.5 mcg Metoprolol Tartrate (Lopressor) 5 mg IVP Q6 [facility] Last Admin: 10/23/17 05:25 Dose: 5 mg - Labs Labs: 10/23/17 04:30 10/23/17 04:30 PT 17.4 Seconds (9.8-13.1) H 10/16/17 09:20 INR 1.6 (0.9-1.2) H 10/16/17 09:20 APTT 35.0 Seconds (25.6-37.1) D 10/17/17 08:10 - Constitutional Appears: Non-toxic, Chronically Ill - Head Exam Head Exam: NORMOCEPHALIC - Eye Exam Eye Exam: PERRL - ENT Exam ENT Exam: Mucous Membranes Dry - Neck Exam Neck Exam: absent: Lymphadenopathy - Respiratory Exam Respiratory Exam: Decreased Breath Sounds - Cardiovascular Exam Cardiovascular Exam: REGULAR RHYTHM - GI/Abdominal Exam GI & Abdominal Exam: Distended, Soft Assessment and Plan (1) CANDELARIA (acute kidney injury) Status: Acute (2) Acute respiratory failure Status: Acute (3) Altered mental status Status: Acute (4) Diastolic CHF, acute on chronic Status: Acute (5) Pleural effusion, bilateral Status: Acute (6) Pneumonia Status: Acute (7) Aortic valve vegetation Status: Acute
--- NOTE | 2017-10-23 16:06 | CP.PCM.PN ---
Subjective - Date & Time of Evaluation Date of Evaluation: 10/23/17 Time of Evaluation: 11:00 - Subjective Subjective: F/U Respiratory failure. Pt awake, smiling, appear following conversation with the . Objective - Vital Signs/Intake and Output Vital Signs (last 24 hours): Temp Pulse Resp BP Pulse Ox 98.5 F 89 21 134/84 100 10/23/17 12:00 10/23/17 12:00 10/23/17 12:00 10/23/17 12:00 10/23/17 12:00 Intake and Output: 10/23/17 10/23/17 06:59 18:59 Intake Total 1250 Output Total 800 Balance 450 - Medications Medications: Current Medications Acetazolamide (Diamox 250 Mg Tab) 250 mg PO BID [facility] Last Admin: 10/23/17 08:51 Dose: 250 mg Calcium Carbonate (Oscal) 500 mg PO BIDWM [facility] Last Admin: 10/23/17 08:51 Dose: 500 mg Cholecalciferol (Vitamin D) 5,000 iu PO DAILY [facility] Last Admin: 10/23/17 08:52 Dose: 5,000 iu Diltiazem HCl (Cardizem) 30 mg PO 0300,0900,1500,2100 [facility] Last Admin: 10/23/17 08:51 Dose: 30 mg Dimethicone (Proshield Plus Skin Protectant) 1 applic TOP Q8 [facility] Furosemide (Lasix) 40 mg IV BID [facility] Last Admin: 10/23/17 08:51 Dose: 40 mg Acyclovir 500 mg/ Sodium (Chloride) 100 mls @ 100 mls/hr IV Q8 [facility] PRN Reason: Protocol Last Admin: 10/23/17 08:52 Dose: 100 mls/hr Metronidazole (Flagyl 500mg/100ml Ns) 100 mls @ 100 mls/hr IVPB Q8 [facility] PRN Reason: Protocol Last Admin: 10/23/17 08:53 Dose: 100 mls/hr Vancomycin HCl 750 mg/ Sodium (Chloride) 250 mls @ 250 mls/hr IVPB Q24H [facility] PRN Reason: Protocol Lactobacillus Acidophilus (Bacid Acidophilus) 1 cap PO BID [facility] Last Admin: 10/23/17 08:51 Dose: 1 cap Lamotrigine (Lamictal) 50 mg PO Q12 [facility] Last Admin: 10/23/17 08:51 Dose: 50 mg Levothyroxine Sodium (Synthroid) 12.5 mcg PO DAILY@0630 [facility] Last Admin: 10/23/17 06:38 Dose: 12.5 mcg Metoprolol Tartrate (Lopressor) 5 mg IVP Q6 [facility] Last Admin: 10/23/17 05:25 Dose: 5 mg - Labs Labs: 10/23/17 04:30 10/23/17 04:30 PT 17.4 Seconds (9.8-13.1) H 10/16/17 09:20 INR 1.6 (0.9-1.2) H 10/16/17 09:20 APTT 35.0 Seconds (25.6-37.1) D 10/17/17 08:10 - Constitutional Appears: Chronically Ill - Head Exam Head Exam: NORMAL INSPECTION - Eye Exam Eye Exam: PERRL - ENT Exam Additional comments: Nose bridge scab - Neck Exam Neck Exam: Normal Inspection - Respiratory Exam Respiratory Exam: Decreased Breath Sounds (at bases), Rhonchi (scattered) - Cardiovascular Exam Cardiovascular Exam: Irregular Rhythm - GI/Abdominal Exam GI & Abdominal Exam: Soft, Normal Bowel Sounds - Extremities Exam Additional comments: Edema extremities - Back Exam Additional comments: DTI sacrum - Neurological Exam Neurological Exam: Alert Additional comments: Open eyes, able to talk, generalized weakness. - Skin Skin Exam: Warm Assessment and Plan (1) Acute respiratory failure with hypoxia Status: Acute (2) Altered mental status Status: Acute (3) Pleural effusion, bilateral Status: Acute (4) Hx of seizure disorder Status: Chronic (5) Diastolic CHF, acute on chronic Status: Acute (6) A-fib Status: Chronic (7) Encephalopathy Status: Acute (8) CANDELARIA (acute kidney injury) Status: Acute (9) Anemia Status: Chronic (10) Aortic valve vegetation Status: Acute (11) SUSAN (obstructive sleep apnea) Status: Chronic - Assessment and Plan (Free Text) Plan: To have transfusion 2 U PRBC, f/u Cardiology. ICU Time: 39 min.
--- NOTE | 2017-10-24 00:16 | CP.PCM.PN ---
Subjective - Date & Time of Evaluation Date of Evaluation: 10/23/17 Time of Evaluation: 21:00 - Subjective Subjective: Doing the same, fluctuations of his mental status, mostly lethargic but arousable. He has been listening to his conversation and smiling, trying to interact. Respiratory problems look better controlled. Receiving Antibiotics for a course for MERLE. Objective - Vital Signs/Intake and Output Vital Signs (last 24 hours): Temp Pulse Resp BP Pulse Ox 98.5 F 78 12 122/71 100 10/23/17 20:00 10/23/17 22:17 10/23/17 22:00 10/23/17 22:00 10/23/17 22:00 Intake and Output: 10/23/17 10/24/17 18:59 06:59 Intake Total 100 Output Total 1400 Balance -1400 100 - Medications Medications: Current Medications Acetazolamide (Diamox 250 Mg Tab) 250 mg PO BID [facility] Last Admin: 10/23/17 17:01 Dose: 250 mg Calcium Carbonate (Oscal) 500 mg PO BIDWM [facility] Last Admin: 10/23/17 17:03 Dose: 500 mg Cholecalciferol (Vitamin D) 5,000 iu PO DAILY [facility] Last Admin: 10/23/17 08:52 Dose: 5,000 iu Diltiazem HCl (Cardizem) 30 mg PO 0300,0900,1500,2100 [facility] Last Admin: 10/23/17 21:03 Dose: 30 mg Dimethicone (Proshield Plus Skin Protectant) 1 applic TOP Q8 [facility] Last Admin: 10/23/17 17:03 Dose: 1 applic Furosemide (Lasix) 40 mg IV BID [facility] Last Admin: 10/23/17 17:02 Dose: 40 mg Acyclovir 500 mg/ Sodium (Chloride) 100 mls @ 100 mls/hr IV Q8 [facility] PRN Reason: Protocol Last Admin: 10/23/17 17:04 Dose: 100 mls/hr Metronidazole (Flagyl 500mg/100ml Ns) 100 mls @ 100 mls/hr IVPB Q8 [facility] PRN Reason: Protocol Last Admin: 10/23/17 17:04 Dose: 100 mls/hr Vancomycin HCl 750 mg/ Sodium (Chloride) 250 mls @ 250 mls/hr IVPB Q24H [facility] PRN Reason: Protocol Last Admin: 10/23/17 14:00 Dose: 250 mls/hr Lactobacillus Acidophilus (Bacid Acidophilus) 1 cap PO BID [facility] Last Admin: 10/23/17 17:06 Dose: 1 cap Lamotrigine (Lamictal) 50 mg PO Q12 [facility] Last Admin: 10/23/17 21:03 Dose: 50 mg Levothyroxine Sodium (Synthroid) 12.5 mcg PO DAILY@0630 [facility] Last Admin: 10/23/17 06:38 Dose: 12.5 mcg Metoprolol Tartrate (Lopressor) 5 mg IVP Q6 [facility] Last Admin: 10/23/17 21:01 Dose: 5 mg - Labs Labs: 10/23/17 04:30 10/23/17 04:30 PT 17.4 Seconds (9.8-13.1) H 10/16/17 09:20 INR 1.6 (0.9-1.2) H 10/16/17 09:20 APTT 35.0 Seconds (25.6-37.1) D 10/17/17 08:10 Assessment and Plan (1) CANDELARIA (acute kidney injury) Status: Acute (2) Acute respiratory failure Status: Acute (3) Altered mental status Status: Acute (4) Pleural effusion, bilateral Status: Acute (5) Pneumonia Status: Acute (6) Seizure disorder Status: Suspected (7) Encephalopathy Status: Acute
[2017-10-24] MEDS: Proshield Plus GEL TOP SCH ×3 (01:06→18:16)
[2017-10-24] MEDS: metroNIDAZOLE 500mg/100ml NS 100 ML IVPB SCH ×3 (01:06→16:46)
[2017-10-24] MEDS: Acyclovir 500 MG in Sodium Chloride 0.9% 100 ML IV SCH ×3 (01:06→18:11)
[2017-10-24] MEDS: Metoprolol 1 mg/ml Inj IVP SCH ×4 (03:41→23:44)
[2017-10-24 05:38] LABS: HEMOGLOBIN 9.2 g/dL (12.0-18.0); MEAN CELL VOLUME 91.8 fl (80.0-94.0); MEAN CORPUSCULAR HEMOGLOBIN 28.8 pg (27.0-31.0); MEAN CORPUSCULAR HGB CONC 31.4 g/dL (33.0-37.0); RBC 3.19 Mil/uL (4.40-5.90); WHITE BLOOD COUNT 6.8 K/uL (4.8-10.8)
[2017-10-24 05:53] LABS: BLOOD UREA NITROGEN 34 mg/dl (9-20); CALCIUM 7.9 mg/dL (8.4-10.2); GFR AFRICAN-AMERICAN > 60; GFR NON-AFRICAN AMERICAN > 60
[2017-10-24] MEDS: Levothyroxine 25 MCG TAB PO SCH (06:03)
[2017-10-24] MEDS: Cholecalciferol 1,000 INTLU TAB PO SCH (08:47)
[2017-10-24] MEDS: Lactobacillus Acidophilus 500 MU Cap PO SCH ×2 (09:46→16:45)
--- NOTE | 2017-10-24 14:54 | CP.PCM.PN ---
Subjective - Date & Time of Evaluation Date of Evaluation: 10/24/17 Time of Evaluation: 10:20 - Subjective Subjective: F/U Respiratory Failure. Eyes open , able to talk with one word , He follows conversation ,at times smile, on High Flow O2 and BIPAP at night. Objective - Vital Signs/Intake and Output Vital Signs (last 24 hours): Temp Pulse Resp BP Pulse Ox 97.8 F 72 20 116/59 L 100 10/24/17 12:00 10/24/17 12:00 10/24/17 13:31 10/24/17 12:00 10/24/17 12:00 Intake and Output: 10/24/17 10/24/17 06:59 18:59 Intake Total 1800 754 Output Total 1000 0 Balance 800 754 - Medications Medications: Current Medications Acetazolamide (Diamox 250 Mg Tab) 250 mg PO BID [facility] Last Admin: 10/24/17 08:46 Dose: 250 mg Calcium Carbonate (Oscal) 500 mg PO BIDWM [facility] Last Admin: 10/24/17 08:47 Dose: 500 mg Cholecalciferol (Vitamin D) 5,000 iu PO DAILY [facility] Last Admin: 10/24/17 08:47 Dose: 5,000 iu Diltiazem HCl (Cardizem) 30 mg PO 0300,0900,1500,2100 [facility] Last Admin: 10/24/17 08:48 Dose: 30 mg Dimethicone (Proshield Plus Skin Protectant) 1 applic TOP Q8 [facility] Last Admin: 10/24/17 10:15 Dose: 1 applic Ferrous Gluconate (Fergon) 324 mg PO DAILY [facility] Last Admin: 10/24/17 08:47 Dose: 324 mg Furosemide (Lasix) 40 mg IV BID [facility] Last Admin: 10/24/17 08:49 Dose: 40 mg Acyclovir 500 mg/ Sodium (Chloride) 100 mls @ 100 mls/hr IV Q8 [facility] PRN Reason: Protocol Last Admin: 10/24/17 08:37 Dose: 100 mls/hr Metronidazole (Flagyl 500mg/100ml Ns) 100 mls @ 100 mls/hr IVPB Q8 [facility] PRN Reason: Protocol Last Admin: 10/24/17 09:47 Dose: 100 mls/hr Vancomycin HCl 750 mg/ Sodium (Chloride) 250 mls @ 250 mls/hr IVPB Q24H [facility] PRN Reason: Protocol Last Admin: 10/24/17 13:53 Dose: 250 mls/hr Lactobacillus Acidophilus (Bacid Acidophilus) 1 cap PO BID [facility] Last Admin: 10/24/17 09:46 Dose: 1 cap Lamotrigine (Lamictal) 50 mg PO Q12 [facility] Last Admin: 10/24/17 08:48 Dose: 50 mg Metoprolol Tartrate (Lopressor) 5 mg IVP Q6 [facility] Last Admin: 10/24/17 09:47 Dose: 5 mg - Labs Labs: 10/24/17 04:00 10/24/17 04:20 PT 17.4 Seconds (9.8-13.1) H 10/16/17 09:20 INR 1.6 (0.9-1.2) H 10/16/17 09:20 APTT 35.0 Seconds (25.6-37.1) D 10/17/17 08:10 - Constitutional Appears: Chronically Ill - Head Exam Head Exam: NORMAL INSPECTION - Eye Exam Eye Exam: PERRL - ENT Exam Additional comments: Nose bridge scab - Neck Exam Neck Exam: Normal Inspection - Respiratory Exam Respiratory Exam: Decreased Breath Sounds (at bases), Rhonchi (scattered) - Cardiovascular Exam Cardiovascular Exam: Irregular Rhythm - GI/Abdominal Exam GI & Abdominal Exam: Soft, Normal Bowel Sounds - Extremities Exam Extremities Exam: Pedal Edema - Back Exam Additional comments: DTI sacrum - Neurological Exam Neurological Exam: Alert Additional comments: Open eyes, able to talk, generalized weakness. - Skin Skin Exam: Warm Assessment and Plan (1) Acute respiratory failure with hypoxia Status: Acute (2) Altered mental status Status: Acute (3) Pleural effusion, bilateral Status: Acute (4) Hx of seizure disorder Status: Chronic (5) Diastolic CHF, acute on chronic Status: Acute (6) A-fib Status: Chronic (7) Encephalopathy Status: Acute (8) CANDELARIA (acute kidney injury) Status: Acute (9) Anemia Status: Chronic (10) Aortic valve vegetation Status: Acute (11) SUSAN (obstructive sleep apnea) Status: Chronic - Assessment and Plan (Free Text) Plan: Patient had PRBC transfusion yesterday, Hgb 9.2,on AFib , on Cardizem , Eliquis , Lasix , Aldactone, continue rest of treatment , attempt chair position and PT on the Pulmonary sport bed. ICU Time: 37 min.
[2017-10-24] MEDS ORDERED: Enoxaparin 80 mg Syringe SC SCH (21:00)
--- NOTE | 2017-10-25 00:50 | CP.PCM.PN ---
Subjective - Date & Time of Evaluation Date of Evaluation: 10/24/17 Time of Evaluation: 22:00 - Subjective Subjective: Patient is improving gradually. He is interactive and responds to his . Respiratory condition is improving very slowly. No seizures on Lamictal 50 mg Q 12 hrs. Objective - Vital Signs/Intake and Output Vital Signs (last 24 hours): Temp Pulse Resp BP Pulse Ox 97.8 F 94 H 12 123/65 100 10/24/17 20:00 10/24/17 23:59 10/24/17 22:00 10/24/17 23:44 10/24/17 22:00 Intake and Output: 10/24/17 10/25/17 18:59 06:59 Intake Total 1854 200 Output Total 1510 900 Balance 344 -700 - Medications Medications: Current Medications Calcium Carbonate (Oscal) 500 mg PO BIDWM [facility] Last Admin: 10/24/17 16:49 Dose: 500 mg Cholecalciferol (Vitamin D) 5,000 iu PO DAILY [facility] Last Admin: 10/24/17 08:47 Dose: 5,000 iu Diltiazem HCl (Cardizem) 30 mg PO 0300,0900,1500,2100 [facility] Last Admin: 10/24/17 20:28 Dose: 30 mg Dimethicone (Proshield Plus Skin Protectant) 1 applic TOP Q8 [facility] Last Admin: 10/24/17 18:16 Dose: 1 applic Enoxaparin Sodium (Lovenox) 80 mg SC Q12 [facility] PRN Reason: Protocol Last Admin: 10/24/17 20:31 Dose: 80 mg Ferrous Gluconate (Fergon) 324 mg PO DAILY [facility] Last Admin: 10/24/17 08:47 Dose: 324 mg Furosemide (Lasix) 40 mg IV BID [facility] Last Admin: 10/24/17 16:49 Dose: 40 mg Acyclovir 500 mg/ Sodium (Chloride) 100 mls @ 100 mls/hr IV Q8 [facility] PRN Reason: Protocol Last Admin: 10/24/17 18:11 Dose: 100 mls/hr Metronidazole (Flagyl 500mg/100ml Ns) 100 mls @ 100 mls/hr IVPB Q8 [facility] PRN Reason: Protocol Last Admin: 10/24/17 16:46 Dose: 100 mls/hr Vancomycin HCl 750 mg/ Sodium (Chloride) 250 mls @ 250 mls/hr IVPB Q24H [facility] PRN Reason: Protocol Last Admin: 10/24/17 13:53 Dose: 250 mls/hr Lactobacillus Acidophilus (Bacid Acidophilus) 1 cap PO BID [facility] Last Admin: 10/24/17 16:45 Dose: 1 cap Lamotrigine (Lamictal) 50 mg PO Q12 [facility] Last Admin: 10/24/17 20:28 Dose: 50 mg Metoprolol Tartrate (Lopressor) 5 mg IVP Q6 [facility] Last Admin: 10/24/17 23:44 Dose: 5 mg Spironolactone (Aldactone) 25 mg PO DAILY [facility] Last Admin: 10/24/17 20:30 Dose: 25 mg - Labs Labs: 10/24/17 04:00 10/24/17 04:20 PT 17.4 Seconds (9.8-13.1) H 10/16/17 09:20 INR 1.6 (0.9-1.2) H 10/16/17 09:20 APTT 35.0 Seconds (25.6-37.1) D 10/17/17 08:10 Assessment and Plan (1) CANDELARIA (acute kidney injury) Status: Acute (2) Acute respiratory failure Status: Acute (3) Altered mental status Status: Acute (4) Pleural effusion, bilateral Status: Acute (5) Pneumonia Status: Acute (6) Seizure disorder Status: Suspected (7) Encephalopathy Status: Acute
[2017-10-25] MEDS: Proshield Plus GEL TOP SCH ×3 (01:00→16:46)
[2017-10-25] MEDS: Acyclovir 500 MG in Sodium Chloride 0.9% 100 ML IV SCH ×3 (02:17→16:47)
[2017-10-25] MEDS: metroNIDAZOLE 500mg/100ml NS 100 ML IVPB SCH ×3 (02:17→16:43)
--- NOTE | 2017-10-25 04:56 | CP.PCM.PN ---
Subjective - Date & Time of Evaluation Date of Evaluation: 10/24/17 Time of Evaluation: 18:30 - Subjective Subjective: more awake and responsive HR variable intermittent afib in nsr with pac's noted at time of evaluation BP stable Objective - Vital Signs/Intake and Output Vital Signs (last 24 hours): Temp Pulse Resp BP Pulse Ox 97.7 F 86 17 130/64 100 10/25/17 00:00 10/25/17 04:29 10/25/17 02:17 10/25/17 02:17 10/25/17 02:17 Intake and Output: 10/24/17 10/25/17 18:59 06:59 Intake Total 1854 400 Output Total 1510 900 Balance 344 -500 - Medications Medications: Current Medications Calcium Carbonate (Oscal) 500 mg PO BIDWM [facility] Last Admin: 10/24/17 16:49 Dose: 500 mg Cholecalciferol (Vitamin D) 5,000 iu PO DAILY [facility] Last Admin: 10/24/17 08:47 Dose: 5,000 iu Diltiazem HCl (Cardizem) 30 mg PO 0300,0900,1500,2100 [facility] Last Admin: 10/25/17 02:17 Dose: 30 mg Dimethicone (Proshield Plus Skin Protectant) 1 applic TOP Q8 [facility] Last Admin: 10/25/17 01:00 Dose: 1 applic Enoxaparin Sodium (Lovenox) 80 mg SC Q12 [facility] PRN Reason: Protocol Last Admin: 10/24/17 20:31 Dose: 80 mg Ferrous Gluconate (Fergon) 324 mg PO DAILY [facility] Last Admin: 10/24/17 08:47 Dose: 324 mg Furosemide (Lasix) 40 mg IV BID [facility] Last Admin: 10/24/17 16:49 Dose: 40 mg Acyclovir 500 mg/ Sodium (Chloride) 100 mls @ 100 mls/hr IV Q8 [facility] PRN Reason: Protocol Last Admin: 10/25/17 02:17 Dose: 100 mls/hr Metronidazole (Flagyl 500mg/100ml Ns) 100 mls @ 100 mls/hr IVPB Q8 [facility] PRN Reason: Protocol Last Admin: 10/25/17 02:17 Dose: 100 mls/hr Vancomycin HCl 750 mg/ Sodium (Chloride) 250 mls @ 250 mls/hr IVPB Q24H [facility] PRN Reason: Protocol Last Admin: 10/24/17 13:53 Dose: 250 mls/hr Lactobacillus Acidophilus (Bacid Acidophilus) 1 cap PO BID [facility] Last Admin: 10/24/17 16:45 Dose: 1 cap Lamotrigine (Lamictal) 50 mg PO Q12 [facility] Last Admin: 10/24/17 20:28 Dose: 50 mg Metoprolol Tartrate (Lopressor) 5 mg IVP Q6 [facility] Last Admin: 10/24/17 23:44 Dose: 5 mg Spironolactone (Aldactone) 25 mg PO DAILY [facility] Last Admin: 10/24/17 20:30 Dose: 25 mg - Labs Labs: 10/24/17 04:00 10/24/17 04:20 PT 17.4 Seconds (9.8-13.1) H 10/16/17 09:20 INR 1.6 (0.9-1.2) H 10/16/17 09:20 APTT 35.0 Seconds (25.6-37.1) D 10/17/17 08:10 - Constitutional Appears: Well - Head Exam Head Exam: ATRAUMATIC, NORMAL INSPECTION, NORMOCEPHALIC - Eye Exam Eye Exam: EOMI, Normal appearance, PERRL Pupil Exam: NORMAL ACCOMODATION, PERRL - ENT Exam ENT Exam: Mucous Membranes Moist, Normal Exam - Neck Exam Neck Exam: Full ROM, Normal Inspection. absent: Lymphadenopathy - Respiratory Exam Respiratory Exam: Clear to Ausculation Bilateral, NORMAL BREATHING PATTERN - Cardiovascular Exam Cardiovascular Exam: Irregular Rhythm, +S1, +S2, Murmur - GI/Abdominal Exam GI & Abdominal Exam: Soft, Normal Bowel Sounds. absent: Tenderness - Extremities Exam Extremities Exam: Full ROM, Normal Capillary Refill, Normal Inspection. absent : Joint Swelling, Pedal Edema - Back Exam Back Exam: NORMAL INSPECTION - Neurological Exam Neurological Exam: Alert, Awake, CN II-XII Intact, Normal Gait, Oriented x3 - Psychiatric Exam Psychiatric exam: Normal Affect, Normal Mood - Skin Skin Exam: Dry, Intact, Normal Color, Warm Assessment and Plan (1) A-fib Assessment & Plan: intermittent on lovenox will switch to eliquis 2.5mg po bid cont with cardizem and BB cont lasix and aldactone Status: Chronic (2) Acute on chronic diastolic (congestive) heart failure Assessment & Plan: cont cardizem and bb cont lasix and aldactone add sildenafil for pulm htn Status: Chronic (3) Acute respiratory failure with hypoxia Status: Acute (4) Altered mental status Status: Acute (5) HTN (hypertension) Status: Deleted (6) Seizure disorder Status: Chronic (7) CANDELARIA (acute kidney injury) Status: Acute (8) Encephalopathy Status: Acute (9) Hypothermia Status: Deleted (10) Pleural effusion, bilateral Status: Acute (11) Supratherapeutic international normalized ratio (INR) Status: Acute (12) Acute decompensated heart failure Status: Acute (13) Atrial fibrillation with RVR Status: Acute
--- NOTE | 2017-10-25 04:58 | CP.PCM.PN ---
Subjective - Date & Time of Evaluation Date of Evaluation: 10/25/17 Time of Evaluation: 04:56 - Subjective Subjective: MS fluctuating Objective - Vital Signs/Intake and Output Vital Signs (last 24 hours): Temp Pulse Resp BP Pulse Ox 97.7 F 86 17 130/64 100 10/25/17 00:00 10/25/17 04:29 10/25/17 02:17 10/25/17 02:17 10/25/17 02:17 Intake and Output: 10/24/17 10/25/17 18:59 06:59 Intake Total 1854 400 Output Total 1510 900 Balance 344 -500 - Medications Medications: Current Medications Calcium Carbonate (Oscal) 500 mg PO BIDWM [facility] Last Admin: 10/24/17 16:49 Dose: 500 mg Cholecalciferol (Vitamin D) 5,000 iu PO DAILY [facility] Last Admin: 10/24/17 08:47 Dose: 5,000 iu Diltiazem HCl (Cardizem) 30 mg PO 0300,0900,1500,2100 [facility] Last Admin: 10/25/17 02:17 Dose: 30 mg Dimethicone (Proshield Plus Skin Protectant) 1 applic TOP Q8 [facility] Last Admin: 10/25/17 01:00 Dose: 1 applic Enoxaparin Sodium (Lovenox) 80 mg SC Q12 [facility] PRN Reason: Protocol Last Admin: 10/24/17 20:31 Dose: 80 mg Ferrous Gluconate (Fergon) 324 mg PO DAILY [facility] Last Admin: 10/24/17 08:47 Dose: 324 mg Furosemide (Lasix) 40 mg IV BID [facility] Last Admin: 10/24/17 16:49 Dose: 40 mg Acyclovir 500 mg/ Sodium (Chloride) 100 mls @ 100 mls/hr IV Q8 [facility] PRN Reason: Protocol Last Admin: 10/25/17 02:17 Dose: 100 mls/hr Metronidazole (Flagyl 500mg/100ml Ns) 100 mls @ 100 mls/hr IVPB Q8 [facility] PRN Reason: Protocol Last Admin: 10/25/17 02:17 Dose: 100 mls/hr Vancomycin HCl 750 mg/ Sodium (Chloride) 250 mls @ 250 mls/hr IVPB Q24H [facility] PRN Reason: Protocol Last Admin: 10/24/17 13:53 Dose: 250 mls/hr Lactobacillus Acidophilus (Bacid Acidophilus) 1 cap PO BID [facility] Last Admin: 10/24/17 16:45 Dose: 1 cap Lamotrigine (Lamictal) 50 mg PO Q12 [facility] Last Admin: 10/24/17 20:28 Dose: 50 mg Metoprolol Tartrate (Lopressor) 5 mg IVP Q6 [facility] Last Admin: 10/24/17 23:44 Dose: 5 mg Spironolactone (Aldactone) 25 mg PO DAILY [facility] Last Admin: 10/24/17 20:30 Dose: 25 mg - Labs Labs: 10/24/17 04:00 10/24/17 04:20 PT 17.4 Seconds (9.8-13.1) H 10/16/17 09:20 INR 1.6 (0.9-1.2) H 10/16/17 09:20 APTT 35.0 Seconds (25.6-37.1) D 10/17/17 08:10 - Constitutional Appears: Well - Head Exam Head Exam: ATRAUMATIC, NORMAL INSPECTION, NORMOCEPHALIC - Eye Exam Eye Exam: EOMI, Normal appearance, PERRL Pupil Exam: NORMAL ACCOMODATION, PERRL - ENT Exam ENT Exam: Mucous Membranes Moist, Normal Exam - Neck Exam Neck Exam: Full ROM, Normal Inspection. absent: Lymphadenopathy - Respiratory Exam Respiratory Exam: Clear to Ausculation Bilateral, Rales, NORMAL BREATHING PATTERN - Cardiovascular Exam Cardiovascular Exam: Irregular Rhythm, +S1, +S2, Murmur - GI/Abdominal Exam GI & Abdominal Exam: Soft, Normal Bowel Sounds. absent: Tenderness - Extremities Exam Extremities Exam: Full ROM, Normal Capillary Refill, Normal Inspection, Pedal Edema. absent: Joint Swelling - Back Exam Back Exam: NORMAL INSPECTION - Neurological Exam Neurological Exam: Alert, Awake - Psychiatric Exam Psychiatric exam: Normal Affect, Normal Mood - Skin Skin Exam: Dry, Intact, Normal Color, Warm Assessment and Plan (1) A-fib Assessment & Plan: HR variable cont with bb and ccb switch to eliquis 2.5mg po bid Status: Chronic (2) Acute on chronic diastolic (congestive) heart failure Assessment & Plan: cont lasix and aldactone add sildenafil 20mg po tid Status: Chronic (3) Acute respiratory failure with hypoxia Status: Acute (4) Altered mental status Status: Deleted (5) HTN (hypertension) Status: Chronic (6) Seizure disorder Status: Chronic (7) CANDELARIA (acute kidney injury) Status: Resolved (8) Encephalopathy Status: Acute (9) Hypothermia Status: Deleted (10) Pleural effusion, bilateral Status: Acute (11) Supratherapeutic international normalized ratio (INR) Status: Acute (12) Acute decompensated heart failure Status: Acute (13) Atrial fibrillation with RVR Status: Acute
[2017-10-25 05:20] LABS: HEMOGLOBIN 9.1 g/dL (12.0-18.0); MEAN CELL VOLUME 91.4 fl (80.0-94.0); MEAN CORPUSCULAR HEMOGLOBIN 29.5 pg (27.0-31.0); MEAN CORPUSCULAR HGB CONC 32.3 g/dL (33.0-37.0); RBC 3.1 Mil/uL (4.40-5.90); WHITE BLOOD COUNT 7.6 K/uL (4.8-10.8)
[2017-10-25] MEDS: Metoprolol 1 mg/ml Inj IVP SCH ×4 (05:26→21:17)
[2017-10-25 06:16] LABS: BLOOD UREA NITROGEN 32 mg/dl (9-20); GFR AFRICAN-AMERICAN > 60; GFR NON-AFRICAN AMERICAN > 60
--- NOTE | 2017-10-25 07:15 | CP.CCUPN ---
CCU Subjective - Physician Review Subjective (Free Text): Opens eyes spontaneously, easily awakens to name calling, but not consistent throughout the day. Remains on 50% oxygen and 30 LPM on HFNC now, was on BiPAP overnight.No active bleeding noted, has returned back to A Fib at 84/min. No sustained, excessive tachycardic episodes. Other vitals and I/O's reviewed. No fever spikes; fluid balance negative 0.6Liters last 24H. Urine output has been vigorous with Lasix. ROS: No other pertinent negs or positives on 10+ system review. PMSFH: All other Nursing and physician documentation reviewed to date; no new pertinent info noted relevant to current medical problems. CXR: (my interp)- none since 10/18/17. IMPRESSION / MAJOR PROBLEMS NOW: 1. Acute Resp ( Hypoxemic) failure 2 bilat effusions, and compressive atelectasis 2. Encephalopathy: etiology unclear, ?? metabolic vs cryptogenic seizures vs ?? CVA?? 3. Chronic A Fib, presently with controlled VR 4. r/o Cardiomyopathy vs Diastolic Dysfx CHF- non-invasive TTE shows preserved EF. 5. Azotemia, CKD III ( Bun/Cr was 36/1.5 at the time of last hospital discharge) 6. Warfarin induced-coagulopathy PLAN: 1. Medication additions as per Cardio: Aldactone, Eliquis, Sildenafil. 2. Will discuss with PMD/PULM regarding further CXRs and aggressiveness of repeat thoracenteses. His Oxygen requirements remain the same, but have not been able to be decreased. He continue to diurese with Lasix with no loss of weight. 3. Empiric Acyclovir. Ongoing Flagyl / Vanco coverage. 4. Hgb stable since PRBCs given on 10/23/17. 5. Bedside Physical Therapy if neuromental status continues to improve and he follows commands. Pulm Sport bed placed and chest Physiotherapy Q4H as tolerated for now. CCU Objective - Vital Signs / Intake & Output Vital Signs (Last 4 hours): Vital Signs Temp Pulse Resp BP Pulse Ox 10/25/17 06:00 78 21 144/79 100 10/25/17 05:26 80 151/84 H 10/25/17 04:29 86 10/25/17 04:00 97.5 F L 80 14 125/63 100 Intake and Output (Last 8hrs): Intake & Output 10/24/17 10/25/17 10/25/17 22:59 06:59 14:59 Intake Total 1000 600 Output Total 2410 400 Balance -1410 200 Intake: Intake, Piggyback 450 200 Tube Feeding 100 Free Water Flush 450 400 Output: Gastric Amount 10 Stomach 10 Urine 2400 400 Urethral (Wang) 2400 400 Other: # Bowel Movements 1 1 - Physical Exam Head: Positive for: Atraumatic, Normocephalic Pupils: Positive for: PERRL, Sluggish Extroacular Muscles: Positive for: EOMI Conjunctiva: Positive for: Normal. Negative for: Icteric Ears: Positive for: Normal Mouth: Positive for: Moist Mucous Membranes Pharnyx: Negative for: ERYTHEMA Neck: Positive for: Normal Range of Motion. Negative for: JVD Respiratory/Chest: Positive for: Decreased Breath Sounds, Rhonchi (upper airway rhonchi), Tachypneic. Negative for: Accessory Muscle Use, Wheezes Cardiovascular: Positive for: Irregular Rhythm, Peripheal Pulses Present, Tachycardic. Negative for: Murmurs, Normal S1, S2, Rub Abdomen: Positive for: Normal Bowel Sounds. Negative for: Tenderness, Distention, Peritoneal Signs Upper Extremity: Positive for: Edema Lower Extremity: Positive for: Edema, NORMAL PULSES. Negative for: CALF TENDERNESS, Cyanosis Neurological: Positive for: Other (withdraws to deep pain) Skin: Positive for: Warm, Dry. Negative for: Rashes Psychiatric: Positive for: Alert, Oriented x 3, Lethargic - Medications Active Medications: Active Medications Generic Name Dose Route Start Last Admin Trade Name Stephan PRN Reason Stop Dose Admin Apixaban 2.5 mg 10/25/17 09:00 Eliquis PO BID [facility] Protocol Calcium Carbonate 500 mg 09/26/17 08:00 10/24/17 16:49 Oscal PO 500 mg BIDWM [facility] Administration Cholecalciferol 5,000 iu 10/18/17 09:00 10/24/17 08:47 Vitamin D PO 5,000 iu DAILY [facility] Administration Diltiazem HCl 30 mg 10/18/17 03:00 10/25/17 02:17 Cardizem PO 30 mg 0300,0900,1500,2100 [facility] Administration Dimethicone 1 applic 10/23/17 09:00 10/25/17 01:00 Proshield Plus Skin Protectant TOP 1 applic Q8 [facility] Administration Ferrous Gluconate 324 mg 10/24/17 09:00 10/24/17 08:47 Fergon PO 324 mg DAILY [facility] Administration Furosemide 40 mg 10/15/17 17:00 10/24/17 16:49 Lasix IV 40 mg BID [facility] Administration Acyclovir 500 mg/ Sodium 100 mls @ 100 mls/hr 10/16/17 17:00 10/25/17 02:17 Chloride IV 100 mls/hr Q8 [facility] Administration Protocol Metronidazole 100 mls @ 100 mls/hr 10/20/17 10:42 10/25/17 02:17 Flagyl 500mg/100ml Ns IVPB 100 mls/hr Q8 [facility] Administration Protocol Vancomycin HCl 750 mg/ Sodium 250 mls @ 250 mls/hr 10/23/17 13:45 10/24/17 13 :53 Chloride IVPB 250 mls/hr Q24H [facility] Administration Protocol Lactobacillus Acidophilus 1 cap 10/08/17 09:00 10/24/17 16:45 Bacid Acidophilus PO 1 cap BID [facility] Administration Lamotrigine 50 mg 10/16/17 09:00 10/24/17 20:28 Lamictal PO 50 mg Q12 [facility] Administration Metoprolol Tartrate 5 mg 10/15/17 16:28 10/25/17 05:26 Lopressor IVP 5 mg Q6 [facility] Administration Spironolactone 25 mg 10/24/17 19:00 10/24/17 20:30 Aldactone PO 25 mg DAILY [facility] Administration - Patient Studies Lab Studies: Lab Studies 10/25/17 10/25/17 10/25/17 Range/Units 05:25 04:50 04:50 WBC 7.6 (4.8-10.8) K/uL RBC 3.10 L (4.40-5.90) Mil/uL Hgb 9.1 L (12.0-18.0) g/dL Hct 28.3 L (35.0-51.0) % MCV 91.4 (80.0-94.0) fl MCH 29.5 (27.0-31.0) pg MCHC 32.3 L (33.0-37.0) g/dL RDW 20.0 H (11.5-14.5) % Plt Count 234 (130-400) K/uL Sodium 140 (132-148) mmol/l Potassium 4.2 (3.6-5.0) MMOL/L Chloride 107 (98-107) mmol/L Carbon Dioxide 28 (22-30) mmol/L Anion Gap 9 L (10-20) BUN 32 H (9-20) mg/dl Creatinine 1.0 (0.8-1.5) mg/dl Est GFR ( Amer) > 60 Est GFR (Non-Af Amer) > 60 Random Glucose 135 H (75-110) mg/dL Calcium 8.0 L (8.4-10.2) mg/dL NT-Pro-B Natriuret Pep 1180 H (0-900) pg/ml RBC Folate (>280) ng/mL RBC 10/23/17 Range/Units 10:30 WBC (4.8-10.8) K/uL RBC (4.40-5.90) Mil/uL Hgb (12.0-18.0) g/dL Hct (35.0-51.0) % MCV (80.0-94.0) fl MCH (27.0-31.0) pg MCHC (33.0-37.0) g/dL RDW (11.5-14.5) % Plt Count (130-400) K/uL Sodium (132-148) mmol/l Potassium (3.6-5.0) MMOL/L Chloride (98-107) mmol/L Carbon Dioxide (22-30) mmol/L Anion Gap (10-20) BUN (9-20) mg/dl Creatinine (0.8-1.5) mg/dl Est GFR ( Amer) Est GFR (Non-Af Amer) Random Glucose (75-110) mg/dL Calcium (8.4-10.2) mg/dL NT-Pro-B Natriuret Pep (0-900) pg/ml RBC Folate 1921 (>280) ng/mL RBC Laboratory Results - last 24 hr 10/23/17 10/25/17 10/25/17 10:30 04:50 04:50 WBC 7.6 RBC 3.10 L Hgb 9.1 L Hct 28.3 L MCV 91.4 MCH 29.5 MCHC 32.3 L RDW 20.0 H Plt Count 234 Sodium 140 Potassium 4.2 Chloride 107 Carbon Dioxide 28 Anion Gap 9 L BUN 32 H Creatinine 1.0 Est GFR ( Amer) > 60 Est GFR (Non-Af Amer) > 60 Random Glucose 135 H Calcium 8.0 L NT-Pro-B Natriuret Pep RBC Folate 192010/25/17 05:25 WBC RBC Hgb Hct MCV MCH MCHC RDW Plt Count Sodium Potassium Chloride Carbon Dioxide Anion Gap BUN Creatinine Est GFR ( Amer) Est GFR (Non-Af Amer) Random Glucose Calcium NT-Pro-B Natriuret Pep 1180 H RBC Folate Fingerstick Blood Sugar Results: 83 Review of Systems - Review of Systems Systems not reviewed;Unavailable: Altered Mental Status All systems: reviewed and no additional remarkable complaints except (as above.)
[2017-10-25] MEDS: Cholecalciferol 1,000 INTLU TAB PO SCH (09:34)
[2017-10-25] MEDS: Lactobacillus Acidophilus 500 MU Cap PO SCH ×2 (09:42→16:42)
--- NOTE | 2017-10-25 11:12 | CP.PCM.PN ---
Subjective - Date & Time of Evaluation Date of Evaluation: 10/25/17 Time of Evaluation: 11:10 - Subjective Subjective: Was called regarding Diamox and electrolyte evaluation. Patient is still receiving Lasix 40 mg twice a day. Patient have a spontaneous response some time to calling . Vital sign noted Objective - Vital Signs/Intake and Output Vital Signs (last 24 hours): Temp Pulse Resp BP Pulse Ox 97.7 F 111 H 17 129/81 98 10/25/17 08:00 10/25/17 09:39 10/25/17 09:34 10/25/17 09:39 10/25/17 09:34 Intake and Output: 10/25/17 10/25/17 06:59 18:59 Intake Total 800 Output Total 1300 Balance -500 - Medications Medications: Current Medications Apixaban (Eliquis) 2.5 mg PO BID ON LICENSE OF [facility] PRN Reason: Protocol Last Admin: 10/25/17 09:29 Dose: 2.5 mg Calcium Carbonate (Oscal) 500 mg PO BIDWM ON LICENSE OF [facility] Last Admin: 10/25/17 09:32 Dose: 500 mg Cholecalciferol (Vitamin D) 5,000 iu PO DAILY ON LICENSE OF [facility] Last Admin: 10/25/17 09:34 Dose: 5,000 intlu Diltiazem HCl (Cardizem) 30 mg PO 0300,0900,1500,2100 [facility] Last Admin: 10/25/17 09:34 Dose: 30 mg Dimethicone (Proshield Plus Skin Protectant) 1 applic TOP Q8 ON LICENSE OF [facility] Last Admin: 10/25/17 09:39 Dose: 1 applic Ferrous Gluconate (Fergon) 324 mg PO DAILY ON LICENSE OF [facility] Last Admin: 10/25/17 09:35 Dose: 324 mg Furosemide (Lasix) 40 mg IV BID ON LICENSE OF [facility] Last Admin: 10/25/17 09:32 Dose: 40 mg Acyclovir 500 mg/ Sodium (Chloride) 100 mls @ 100 mls/hr IV Q8 [facility] PRN Reason: Protocol Last Admin: 10/25/17 09:36 Dose: 100 mls/hr Metronidazole (Flagyl 500mg/100ml Ns) 100 mls @ 100 mls/hr IVPB Q8 [facility] PRN Reason: Protocol Last Admin: 10/25/17 09:36 Dose: 100 mls/hr Vancomycin HCl 750 mg/ Sodium (Chloride) 250 mls @ 250 mls/hr IVPB Q24H ON LICENSE OF [facility] PRN Reason: Protocol Last Admin: 10/24/17 13:53 Dose: 250 mls/hr Lactobacillus Acidophilus (Bacid Acidophilus) 1 cap PO BID ON LICENSE OF [facility] Last Admin: 10/25/17 09:42 Dose: 1 cap Lamotrigine (Lamictal) 50 mg PO Q12 ON LICENSE OF [facility] Last Admin: 10/25/17 09:33 Dose: 50 mg Metoprolol Tartrate (Lopressor) 5 mg IVP Q6 ON LICENSE OF [facility] Last Admin: 10/25/17 09:39 Dose: 5 mg Sildenafil Citrate (Revatio) 20 mg PO TID ON LICENSE OF [facility] Spironolactone (Aldactone) 25 mg PO DAILY ON LICENSE OF [facility] Last Admin: 10/25/17 09:34 Dose: 25 mg - Labs Labs: 10/25/17 04:50 10/25/17 04:50 PT 17.4 Seconds (9.8-13.1) H 10/16/17 09:20 INR 1.6 (0.9-1.2) H 10/16/17 09:20 APTT 35.0 Seconds (25.6-37.1) D 10/17/17 08:10 - Constitutional Appears: No Acute Distress - ENT Exam ENT Exam: Mucous Membranes Moist - Respiratory Exam Respiratory Exam: NORMAL BREATHING PATTERN. absent: Chest Wall Tenderness - GI/Abdominal Exam GI & Abdominal Exam: Soft. absent: Guarding - Extremities Exam Extremities Exam: absent: Calf Tenderness - Back Exam Back Exam: absent: CVA tenderness (L), CVA tenderness (R) - Neurological Exam Neurological Exam: Altered Assessment and Plan (1) CANDELARIA (acute kidney injury) Assessment & Plan: Patient recovered from acute kidney injury serum creatinine normal. 1.0. Electrolyte noted to be acceptable. CO2 has came down from as high as 38 to a 32 however patient remain on Lasix 40 intravenous mg twice a day. So I suggest to continue with the Diamox until CO2 come down around 30 and or the patient may require much less Lasix at that point he may not need Diamox. Status: Acute (2) Altered mental status Status: Acute (3) Diastolic CHF, acute on chronic Status: Acute (4) Hypernatremia Status: Acute
[2017-10-25] MEDS ORDERED: Digoxin 500 mcg/2ml (0.5 mg/2ml) Inj IVP ONE ×2 (12:21→13:55)
--- NOTE | 2017-10-25 12:31 | CP.PCM.PN ---
Subjective - Date & Time of Evaluation Date of Evaluation: 10/25/17 Time of Evaluation: 08:00 - Subjective Subjective: arousable nad Objective - Vital Signs/Intake and Output Vital Signs (last 24 hours): Temp Pulse Resp BP Pulse Ox 99.6 F 107 H 20 109/65 100 10/25/17 12:00 10/25/17 12:00 10/25/17 12:10 10/25/17 12:00 10/25/17 12:00 Intake and Output: 10/25/17 10/25/17 06:59 18:59 Intake Total 800 604 Output Total 1300 210 Balance -500 394 - Medications Medications: Current Medications Apixaban (Eliquis) 2.5 mg PO BID [facility] PRN Reason: Protocol Last Admin: 10/25/17 09:29 Dose: 2.5 mg Calcium Carbonate (Oscal) 500 mg PO BIDWM [facility] Last Admin: 10/25/17 09:32 Dose: 500 mg Cholecalciferol (Vitamin D) 5,000 iu PO DAILY [facility] Last Admin: 10/25/17 09:34 Dose: 5,000 intlu Diltiazem HCl (Cardizem) 30 mg PO 0300,0900,1500,2100 [facility] Last Admin: 10/25/17 09:34 Dose: 30 mg Dimethicone (Proshield Plus Skin Protectant) 1 applic TOP Q8 [facility] Last Admin: 10/25/17 09:39 Dose: 1 applic Ferrous Gluconate (Fergon) 324 mg PO DAILY [facility] Last Admin: 10/25/17 09:35 Dose: 324 mg Furosemide (Lasix) 40 mg IV BID [facility] Last Admin: 10/25/17 09:32 Dose: 40 mg Acyclovir 500 mg/ Sodium (Chloride) 100 mls @ 100 mls/hr IV Q8 [facility] PRN Reason: Protocol Last Admin: 10/25/17 09:36 Dose: 100 mls/hr Metronidazole (Flagyl 500mg/100ml Ns) 100 mls @ 100 mls/hr IVPB Q8 [facility] PRN Reason: Protocol Last Admin: 10/25/17 09:36 Dose: 100 mls/hr Vancomycin HCl 750 mg/ Sodium (Chloride) 250 mls @ 250 mls/hr IVPB Q24H [facility] PRN Reason: Protocol Last Admin: 10/24/17 13:53 Dose: 250 mls/hr Lactobacillus Acidophilus (Bacid Acidophilus) 1 cap PO BID [facility] Last Admin: 10/25/17 09:42 Dose: 1 cap Lamotrigine (Lamictal) 50 mg PO Q12 [facility] Last Admin: 10/25/17 09:33 Dose: 50 mg Metoprolol Tartrate (Lopressor) 5 mg IVP Q6 [facility] Last Admin: 10/25/17 09:39 Dose: 5 mg Sildenafil Citrate (Revatio) 20 mg PO TID [facility] Spironolactone (Aldactone) 25 mg PO DAILY [facility] Last Admin: 10/25/17 09:34 Dose: 25 mg - Labs Labs: 10/25/17 04:50 10/25/17 04:50 PT 17.4 Seconds (9.8-13.1) H 10/16/17 09:20 INR 1.6 (0.9-1.2) H 10/16/17 09:20 APTT 35.0 Seconds (25.6-37.1) D 10/17/17 08:10 - Constitutional Appears: Non-toxic, Chronically Ill - Head Exam Head Exam: NORMOCEPHALIC - Eye Exam Eye Exam: PERRL - ENT Exam ENT Exam: Mucous Membranes Dry - Neck Exam Neck Exam: absent: Lymphadenopathy - Respiratory Exam Respiratory Exam: Decreased Breath Sounds, Rhonchi - Cardiovascular Exam Cardiovascular Exam: REGULAR RHYTHM, +S1, +S2 Assessment and Plan (1) CANDELARIA (acute kidney injury) Status: Acute (2) Acute respiratory failure Status: Acute (3) Altered mental status Status: Acute (4) Diastolic CHF, acute on chronic Status: Acute (5) Pleural effusion, bilateral Status: Acute (6) Pneumonia Status: Acute (7) Aortic valve vegetation Status: Acute
[2017-10-25] MEDS ORDERED: Chlorhexidine Gluconate 1 APPL/PKT TP ONE (12:39)
--- NOTE | 2017-10-25 14:47 | CP.PCM.PN ---
Subjective - Date & Time of Evaluation Date of Evaluation: 10/25/17 Time of Evaluation: 14:00 - Subjective Subjective: F/U Respiratory failure. Awake, follows conversation with eyes , Patient on High Flow O2 and BIPAP at night Objective - Vital Signs/Intake and Output Vital Signs (last 24 hours): Temp Pulse Resp BP Pulse Ox 99.6 F 129 H 25 H 123/72 100 10/25/17 12:00 10/25/17 14:42 10/25/17 14:42 10/25/17 14:42 10/25/17 14:42 Intake and Output: 10/25/17 10/25/17 06:59 18:59 Intake Total 800 604 Output Total 1300 210 Balance -500 394 - Medications Medications: Current Medications Apixaban (Eliquis) 2.5 mg PO BID [facility] PRN Reason: Protocol Last Admin: 10/25/17 09:29 Dose: 2.5 mg Calcium Carbonate (Oscal) 500 mg PO BIDWM [facility] Last Admin: 10/25/17 09:32 Dose: 500 mg Cholecalciferol (Vitamin D) 5,000 iu PO DAILY [facility] Last Admin: 10/25/17 09:34 Dose: 5,000 intlu Diltiazem HCl (Cardizem) 30 mg PO 0300,0900,1500,2100 [facility] Last Admin: 10/25/17 14:42 Dose: 30 mg Dimethicone (Proshield Plus Skin Protectant) 1 applic TOP Q8 [facility] Last Admin: 10/25/17 09:39 Dose: 1 applic Ferrous Gluconate (Fergon) 324 mg PO DAILY [facility] Last Admin: 10/25/17 09:35 Dose: 324 mg Furosemide (Lasix) 40 mg IV BID [facility] Last Admin: 10/25/17 09:32 Dose: 40 mg Acyclovir 500 mg/ Sodium (Chloride) 100 mls @ 100 mls/hr IV Q8 [facility] PRN Reason: Protocol Last Admin: 10/25/17 09:36 Dose: 100 mls/hr Metronidazole (Flagyl 500mg/100ml Ns) 100 mls @ 100 mls/hr IVPB Q8 [facility] PRN Reason: Protocol Last Admin: 10/25/17 09:36 Dose: 100 mls/hr Vancomycin HCl 750 mg/ Sodium (Chloride) 250 mls @ 250 mls/hr IVPB Q24H [facility] PRN Reason: Protocol Last Admin: 10/24/17 13:53 Dose: 250 mls/hr Lactobacillus Acidophilus (Bacid Acidophilus) 1 cap PO BID [facility] Last Admin: 10/25/17 09:42 Dose: 1 cap Lamotrigine (Lamictal) 50 mg PO Q12 [facility] Last Admin: 10/25/17 09:33 Dose: 50 mg Metoprolol Tartrate (Lopressor) 5 mg IVP Q6 [facility] Last Admin: 10/25/17 09:39 Dose: 5 mg Sildenafil Citrate (Revatio) 20 mg PO TID [facility] Spironolactone (Aldactone) 25 mg PO DAILY [facility] Last Admin: 10/25/17 09:34 Dose: 25 mg - Labs Labs: 10/25/17 04:50 10/25/17 04:50 PT 17.4 Seconds (9.8-13.1) H 10/16/17 09:20 INR 1.6 (0.9-1.2) H 10/16/17 09:20 APTT 35.0 Seconds (25.6-37.1) D 10/17/17 08:10 - Constitutional Appears: Chronically Ill - Head Exam Head Exam: NORMAL INSPECTION - Eye Exam Eye Exam: PERRL - ENT Exam ENT Exam: Normal Oropharynx - Neck Exam Neck Exam: Normal Inspection - Respiratory Exam Respiratory Exam: Decreased Breath Sounds (at bases) - Cardiovascular Exam Cardiovascular Exam: Irregular Rhythm - GI/Abdominal Exam GI & Abdominal Exam: Normal Bowel Sounds - Extremities Exam Extremities Exam: Pedal Edema - Back Exam Additional comments: DTI Sacrum - Neurological Exam Neurological Exam: Awake Additional comments: follows conversation , able to talk with single words, generalized weakness - Skin Skin Exam: Warm Assessment and Plan (1) Acute respiratory failure with hypoxia Status: Acute (2) Pleural effusion, bilateral Status: Acute (3) Hx of seizure disorder Status: Chronic (4) Diastolic CHF, acute on chronic Status: Acute (5) A-fib Status: Chronic (6) Encephalopathy Status: Acute (7) CANDELARIA (acute kidney injury) Status: Acute (8) Anemia Status: Chronic (9) Aortic valve vegetation Status: Acute (10) SUSAN (obstructive sleep apnea) Status: Chronic - Assessment and Plan (Free Text) Plan: Heart rate up at times 130, Patient had Digoxin IV , f/u effect on Heart rate , f/u with Air Sampler , Patient is already on Cardizem and Lopressor, increased in the amount of thick Pulmonary secretions , CXR increased R pleural effusion with Atelectasis RLL ICU Time: 40 min.
[2017-10-25] MEDS: Sildenafil 20 MG TAB PO SCH ×2 (14:48→16:46)
--- NOTE | 2017-10-25 15:25 | RAD ---
HISTORY: CHF , Pleural effusion COMPARISON: 10/18/2017 FINDINGS: LUNGS: Basilar consolidative changes, progressive particularly right lower lobe. PLEURA: Increasing bilateral pleural effusions. CARDIOVASCULAR: Stable cardiomegaly. Position/ configuration of pacemaker device: Satisfactory. OSSEOUS STRUCTURES: No significant abnormalities. VISUALIZED UPPER ABDOMEN: Normal. OTHER FINDINGS: None. IMPRESSION: Increasing right pleural effusion. Progressive compressive atelectasis right lower lobe.
[2017-10-25] MEDS: Acetaminophen 650mg/20.3ml solution UD PO PRN (16:42)
[2017-10-26] MEDS: metroNIDAZOLE 500mg/100ml NS 100 ML IVPB SCH ×2 (00:08→08:22)
[2017-10-26] MEDS: Proshield Plus GEL TOP SCH ×3 (00:09→16:10)
[2017-10-26] MEDS: Acyclovir 500 MG in Sodium Chloride 0.9% 100 ML IV SCH ×3 (01:06→16:08)
--- NOTE | 2017-10-26 01:17 | CP.PCM.PN ---
Subjective - Date & Time of Evaluation Date of Evaluation: 10/25/17 Time of Evaluation: 22:25 - Subjective Subjective: Doing better on the long range, more responsive to stimulation, more periods of interaction with his family and the caretakers. VS are more stable. Patient has normal VS and is receiving Oxygen 50% in day time and CPAP at night time. No Seizures on Lamictal 50 mg Q 12hrs. IMPRESSION Of CXR: Increasing right pleural effusion. Progressive compressive atelectasis right lower lobe. He is suffering from accumulation of left pleural fluid. high Pro B N.T Natriuret PEP Objective - Vital Signs/Intake and Output Vital Signs (last 24 hours): Temp Pulse Resp BP Pulse Ox 99.4 F 93 H 27 H 122/62 100 10/25/17 20:00 10/26/17 00:09 10/25/17 22:00 10/25/17 22:00 10/25/17 22:00 Intake and Output: 10/25/17 10/26/17 18:59 06:59 Intake Total 1754 350 Output Total 1210 Balance 544 350 - Medications Medications: Current Medications Acetaminophen (Tylenol 650mg/20.3ml Solution Ud) 650 mg PO Q6 PRN PRN Reason: Temperature Last Admin: 10/25/17 16:42 Dose: 650 mg Apixaban (Eliquis) 2.5 mg PO BID [facility] PRN Reason: Protocol Last Admin: 10/25/17 16:43 Dose: Not Given Cholecalciferol (Vitamin D) 5,000 iu PO DAILY [facility] Last Admin: 10/25/17 09:34 Dose: 5,000 intlu Diltiazem HCl (Cardizem) 30 mg PO 0300,0900,1500,2100 [facility] Last Admin: 10/25/17 20:01 Dose: 30 mg Dimethicone (Proshield Plus Skin Protectant) 1 applic TOP Q8 [facility] Last Admin: 10/26/17 00:09 Dose: 1 applic Ferrous Gluconate (Fergon) 324 mg PO DAILY [facility] Last Admin: 10/25/17 09:35 Dose: 324 mg Furosemide (Lasix) 40 mg IV BID [facility] Last Admin: 10/25/17 16:44 Dose: 40 mg Acyclovir 500 mg/ Sodium (Chloride) 100 mls @ 100 mls/hr IV Q8 [facility] PRN Reason: Protocol Last Admin: 10/26/17 01:06 Dose: 100 mls/hr Metronidazole (Flagyl 500mg/100ml Ns) 100 mls @ 100 mls/hr IVPB Q8 [facility] PRN Reason: Protocol Last Admin: 10/26/17 00:08 Dose: 100 mls/hr Vancomycin HCl 750 mg/ Sodium (Chloride) 250 mls @ 250 mls/hr IVPB Q24H [facility] PRN Reason: Protocol Last Admin: 10/25/17 15:15 Dose: 250 mls/hr Lactobacillus Acidophilus (Bacid Acidophilus) 1 cap PO BID [facility] Last Admin: 10/25/17 16:42 Dose: 1 cap Lamotrigine (Lamictal) 50 mg PO Q12 [facility] Last Admin: 10/25/17 20:01 Dose: 50 mg Metoprolol Tartrate (Lopressor) 5 mg IVP Q6 [facility] Last Admin: 10/25/17 21:17 Dose: 5 mg Sildenafil Citrate (Revatio) 20 mg PO TID [facility] Last Admin: 10/25/17 16:46 Dose: 20 mg Spironolactone (Aldactone) 25 mg PO DAILY [facility] Last Admin: 10/25/17 09:34 Dose: 25 mg - Labs Labs: 10/25/17 04:50 10/25/17 04:50 PT 17.4 Seconds (9.8-13.1) H 10/16/17 09:20 INR 1.6 (0.9-1.2) H 10/16/17 09:20 APTT 35.0 Seconds (25.6-37.1) D 10/17/17 08:10 Assessment and Plan (1) CANDELARIA (acute kidney injury) Status: Acute (2) Acute respiratory failure Status: Acute (3) Altered mental status Status: Acute (4) Pleural effusion, bilateral Status: Acute (5) Pneumonia Status: Acute (6) Seizure disorder Status: Suspected (7) Encephalopathy Status: Acute
[2017-10-26] MEDS: Metoprolol 1 mg/ml Inj IVP SCH ×4 (04:27→22:15)
[2017-10-26 06:39] LABS: BASO % 0.3 % (0.0-2.0); EOS # 0.1 K/uL (0.0-0.7); HEMOGLOBIN 9.3 g/dL (12.0-18.0); LYMPH # 0.9 K/uL (1.0-4.3); LYMPH % 9.8 % (20.0-40.0); MEAN CELL VOLUME 94.1 fl (80.0-94.0); MEAN CORPUSCULAR HEMOGLOBIN 29.5 pg (27.0-31.0); MEAN CORPUSCULAR HGB CONC 31.4 g/dL (33.0-37.0); MONO % 10.9 % (0.0-10.0); NEUT # 7.2 K/uL (1.8-7.0); NRBC % 0.1 % (0.0-0.0); PLATELET COUNT 250 K/uL (130-400); RBC 3.17 Mil/uL (4.40-5.90); RED CELL DISTRIBUTION WIDTH 19.4 % (11.5-14.5); WHITE BLOOD COUNT 9.3 K/uL (4.8-10.8)
[2017-10-26 07:21] LABS: ALB/GLOB RATIO 0.7 (1.0-2.1); ALBUMIN 2.5 g/dL (3.5-5.0); ALT/SGPT 28 U/L (21-72); AST/SGOT 26 U/L (17-59); BLOOD UREA NITROGEN 36 mg/dl (9-20); CALCIUM 7.7 mg/dL (8.4-10.2); GFR AFRICAN-AMERICAN > 60; GFR NON-AFRICAN AMERICAN > 60
[2017-10-26 10:09] LABS: ANISOCYTOSIS MODERATE; EOSINOPHIL 1 % (0-7); LYMPHOCYTE 9 % (20-50); MONOCYTE 11 % (0-10); NEUTROPHIL 79 % (42-75); PLATELET ESTIMATE NORMAL (NORMAL); TOTAL CELLS COUNTED 100
[2017-10-26 10:10] LABS: HYPOCHROMIC SLIGHT; OVALOCYTES SLIGHT; POIKILOCYTOSIS SLIGHT
[2017-10-26] MEDS ORDERED: Chlorhexidine Gluconate 1 APPL/PKT TP ONE (11:27)
[2017-10-26] MEDS: Sildenafil 20 MG TAB PO SCH ×3 (12:38→16:09)
[2017-10-26] MEDS: Lactobacillus Acidophilus 500 MU Cap PO SCH ×2 (12:38→16:09)
[2017-10-26 13:56] LABS: INR 1.6 (0.9-1.2); PARTIAL THROMBOPLASTIN TIME 34.4 Seconds (25.6-37.1)
[2017-10-26] MEDS: Cholecalciferol 1,000 INTLU TAB PO SCH (13:57)
--- NOTE | 2017-10-26 16:16 | CP.PCM.PN ---
Subjective - Date & Time of Evaluation Date of Evaluation: 10/26/17 Time of Evaluation: 11:40 - Subjective Subjective: F/U Respiratory failure. Eyes open, follows verbal conversation with . Objective - Vital Signs/Intake and Output Vital Signs (last 24 hours): Temp Pulse Resp BP Pulse Ox 98.4 F 85 16 127/55 L 100 10/26/17 12:00 10/26/17 14:00 10/26/17 14:00 10/26/17 14:00 10/26/17 14:00 Intake and Output: 10/26/17 10/26/17 06:59 18:59 Intake Total 850 708 Output Total 680 Balance 170 708 - Medications Medications: Current Medications Acetaminophen (Tylenol 650mg/20.3ml Solution Ud) 650 mg PO Q6 PRN PRN Reason: Temperature Last Admin: 10/25/17 16:42 Dose: 650 mg Apixaban (Eliquis) 2.5 mg PO BID [facility] PRN Reason: Protocol Last Admin: 10/26/17 12:38 Dose: Not Given Cholecalciferol (Vitamin D) 5,000 iu PO DAILY [facility] Last Admin: 10/26/17 13:57 Dose: 5,000 intlu Diltiazem HCl (Cardizem) 30 mg PO 0300,0900,1500,2100 [facility] Last Admin: 10/26/17 14:00 Dose: 30 mg Dimethicone (Proshield Plus Skin Protectant) 1 applic TOP Q8 [facility] Last Admin: 10/26/17 08:27 Dose: 1 applic Ferrous Gluconate (Fergon) 324 mg PO DAILY [facility] Last Admin: 10/26/17 13:55 Dose: 324 mg Furosemide (Lasix) 40 mg IV BID [facility] Last Admin: 10/26/17 08:26 Dose: 40 mg Acyclovir 500 mg/ Sodium (Chloride) 100 mls @ 100 mls/hr IV Q8 [facility] PRN Reason: Protocol Last Admin: 10/26/17 08:25 Dose: 100 mls/hr Vancomycin HCl 750 mg/ Sodium (Chloride) 250 mls @ 250 mls/hr IVPB Q24H [facility] PRN Reason: Protocol Last Admin: 10/26/17 13:57 Dose: 250 mls/hr Lactobacillus Acidophilus (Bacid Acidophilus) 1 cap PO BID [facility] Last Admin: 10/26/17 12:38 Dose: Not Given Lamotrigine (Lamictal) 50 mg PO Q12 [facility] Last Admin: 10/26/17 12:38 Dose: Not Given Metoprolol Tartrate (Lopressor) 5 mg IVP Q6 [facility] Last Admin: 10/26/17 10:00 Dose: 5 mg Sildenafil Citrate (Revatio) 20 mg PO TID [facility] Last Admin: 10/26/17 12:38 Dose: Not Given Spironolactone (Aldactone) 25 mg PO DAILY [facility] Last Admin: 10/26/17 13:57 Dose: 25 mg - Labs Labs: 10/26/17 05:45 10/26/17 05:45 PT 18.0 Seconds (9.8-13.1) H 10/26/17 12:30 INR 1.6 (0.9-1.2) H 10/26/17 12:30 APTT 34.4 Seconds (25.6-37.1) 10/26/17 12:30 - Constitutional Appears: Chronically Ill - Head Exam Head Exam: NORMAL INSPECTION - Eye Exam Eye Exam: Normal appearance - ENT Exam ENT Exam: Normal Exam - Neck Exam Neck Exam: Normal Inspection - Respiratory Exam Respiratory Exam: Decreased Breath Sounds (at bases), Rhonchi (scattered) - Cardiovascular Exam Cardiovascular Exam: Irregular Rhythm - GI/Abdominal Exam GI & Abdominal Exam: Soft, Normal Bowel Sounds - Extremities Exam Extremities Exam: Pedal Edema - Back Exam Additional comments: DTI sacrum - Neurological Exam Neurological Exam: Awake Additional comments: Eyes open, follows conversation with , generalized weakness. - Psychiatric Exam Psychiatric exam: Normal Mood - Skin Skin Exam: Warm Assessment and Plan (1) Acute respiratory failure with hypoxia Status: Acute (2) Pleural effusion, bilateral Status: Acute (3) Hx of seizure disorder Status: Chronic (4) Diastolic CHF, acute on chronic Status: Acute (5) A-fib Status: Chronic (6) Encephalopathy Status: Acute (7) CANDELARIA (acute kidney injury) Status: Acute (8) Anemia Status: Chronic (9) Aortic valve vegetation Status: Acute (10) SUSAN (obstructive sleep apnea) Status: Chronic - Assessment and Plan (Free Text) Plan: CXR shows: Increased R pleural effusion with RLL atelectasis, to have IR consult for R thoracentesis on Saturday. ICU Time: 40 min.
--- NOTE | 2017-10-26 18:53 | RAD ---
HISTORY: atelectasis COMPARISON: Portable chest 10/25/2017. FINDINGS: LUNGS: Pacemaker again identified in position as well as right PICC. Nasogastric tube terminates to the left upper quadrant abdomen is again. Persistent left pleural effusions upper with mild right pleural effusion evident. Underlying airspace disease not excluded both bases. No pneumothorax grossly evident at the right chest. Left apex is obscured by the lower face and mandible. No gross left pneumothorax. CARDIOVASCULAR: Stable cardiomediastinal silhouette. No definite pulmonary vascular derangement identified. OSSEOUS STRUCTURES: No significant abnormalities. VISUALIZED UPPER ABDOMEN: Normal. OTHER FINDINGS: None. IMPRESSION: Improved right pleural effusion. Persistent, unchanged left pleural effusion with underlying airspace disease not excluded bilaterally.
[2017-10-27] MEDS: Acyclovir 500 MG in Sodium Chloride 0.9% 100 ML IV SCH ×3 (01:23→16:17)
--- NOTE | 2017-10-27 01:23 | CP.PCM.PN ---
Subjective - Date & Time of Evaluation Date of Evaluation: 10/26/17 Time of Evaluation: 22:40 - Subjective Subjective: No seizures are reported his Chest X ray shows improvement on the Right side.. IMPRESSION CXR: Improved right pleural effusion. Persistent, unchanged left pleural effusion with underlying airspace disease not excluded bilaterally. He is still suffering from respiratory failure. He is interactive at time. He might have a left Thoracocentesis on Saturday. Objective - Vital Signs/Intake and Output Vital Signs (last 24 hours): Temp Pulse Resp BP Pulse Ox 98.2 F 73 17 128/58 L 100 10/26/17 16:00 10/26/17 23:30 10/26/17 19:15 10/26/17 22:15 10/26/17 18:00 Intake and Output: 10/26/17 10/27/17 18:59 06:59 Intake Total 1493 Output Total 1000 Balance 493 - Medications Medications: Current Medications Acetaminophen (Tylenol 650mg/20.3ml Solution Ud) 650 mg PO Q6 PRN PRN Reason: Temperature Last Admin: 10/25/17 16:42 Dose: 650 mg Apixaban (Eliquis) 2.5 mg PO BID [facility] PRN Reason: Protocol Last Admin: 10/26/17 16:09 Dose: 2.5 mg Cholecalciferol (Vitamin D) 5,000 iu PO DAILY [facility] Last Admin: 10/26/17 13:57 Dose: 5,000 intlu Diltiazem HCl (Cardizem) 30 mg PO 0300,0900,1500,2100 [facility] Last Admin: 10/26/17 20:52 Dose: 30 mg Dimethicone (Proshield Plus Skin Protectant) 1 applic TOP Q8 [facility] Last Admin: 10/26/17 16:10 Dose: 1 applic Ferrous Gluconate (Fergon) 324 mg PO DAILY [facility] Last Admin: 10/26/17 13:55 Dose: 324 mg Furosemide (Lasix) 40 mg IV BID [facility] Last Admin: 10/26/17 16:09 Dose: 40 mg Acyclovir 500 mg/ Sodium (Chloride) 100 mls @ 100 mls/hr IV Q8 [facility] PRN Reason: Protocol Last Admin: 10/26/17 16:08 Dose: 100 mls/hr Vancomycin HCl 750 mg/ Sodium (Chloride) 250 mls @ 250 mls/hr IVPB Q24H [facility] PRN Reason: Protocol Last Admin: 10/26/17 13:57 Dose: 250 mls/hr Lactobacillus Acidophilus (Bacid Acidophilus) 1 cap PO BID [facility] Last Admin: 10/26/17 16:09 Dose: 1 cap Lamotrigine (Lamictal) 50 mg PO Q12 [facility] Last Admin: 10/26/17 20:51 Dose: 50 mg Metoprolol Tartrate (Lopressor) 5 mg IVP Q6 [facility] Last Admin: 10/26/17 22:15 Dose: 5 mg Sildenafil Citrate (Revatio) 20 mg PO TID [facility] Last Admin: 10/26/17 16:09 Dose: 20 mg Spironolactone (Aldactone) 25 mg PO DAILY [facility] Last Admin: 10/26/17 13:57 Dose: 25 mg - Labs Labs: 10/26/17 05:45 10/26/17 05:45 PT 18.0 Seconds (9.8-13.1) H 10/26/17 12:30 INR 1.6 (0.9-1.2) H 10/26/17 12:30 APTT 34.4 Seconds (25.6-37.1) 10/26/17 12:30 Assessment and Plan (1) CANDELARIA (acute kidney injury) Status: Acute (2) Acute respiratory failure Status: Acute (3) Altered mental status Status: Acute (4) Pleural effusion, bilateral Status: Acute (5) Pneumonia Status: Acute (6) Seizure disorder Status: Suspected (7) Encephalopathy Status: Acute
[2017-10-27] MEDS: Proshield Plus GEL TOP SCH ×3 (01:24→16:27)
[2017-10-27] MEDS: Metoprolol 1 mg/ml Inj IVP SCH ×4 (05:00→21:17)
[2017-10-27 07:18] LABS: BASO % 0.2 % (0.0-2.0); EOS # 0.2 K/uL (0.0-0.7); EOS % 2.3 % (0.0-4.0); HEMOGLOBIN 10.4 g/dL (12.0-18.0); LYMPH % 14.3 % (20.0-40.0); MEAN CELL VOLUME 94.9 fl (80.0-94.0); MEAN CORPUSCULAR HGB CONC 31.6 g/dL (33.0-37.0); MEAN PLATELET VOLUME 7.6 fl (7.2-11.7); MONO # 0.6 K/uL (0.0-0.8); MONO % 8.7 % (0.0-10.0); NEUT # 5.4 K/uL (1.8-7.0); NEUT % 74.5 % (50.0-75.0); RBC 3.45 Mil/uL (4.40-5.90); RED CELL DISTRIBUTION WIDTH 23.5 % (11.5-14.5); WHITE BLOOD COUNT 7.3 K/uL (4.8-10.8)
[2017-10-27 07:34] LABS: ALBUMIN 2.7 g/dL (3.5-5.0); ALT/SGPT 27 U/L (21-72); AST/SGOT 22 U/L (17-59); BLOOD UREA NITROGEN 37 mg/dl (9-20); CALCIUM 8.1 mg/dL (8.4-10.2); GFR AFRICAN-AMERICAN > 60; GFR NON-AFRICAN AMERICAN > 60
[2017-10-27 07:36] LABS: ALB/GLOB RATIO 0.7 (1.0-2.1)
[2017-10-27] MEDS: Lactobacillus Acidophilus 500 MU Cap PO SCH ×2 (08:32→16:11)
[2017-10-27] MEDS: Sildenafil 20 MG TAB PO SCH ×3 (08:35→16:32)
[2017-10-27] MEDS: Cholecalciferol 1,000 INTLU TAB PO SCH (08:44)
--- NOTE | 2017-10-27 12:36 | CP.PCM.PN ---
Subjective - Date & Time of Evaluation Date of Evaluation: 10/27/17 Time of Evaluation: 08:00 - Subjective Subjective: slow progress Objective - Vital Signs/Intake and Output Vital Signs (last 24 hours): Temp Pulse Resp BP Pulse Ox 96.7 F L 80 20 119/64 97 10/27/17 12:00 10/27/17 12:00 10/27/17 12:04 10/27/17 12:00 10/27/17 12:00 Intake and Output: 10/27/17 10/27/17 06:59 18:59 Intake Total 1250 700 Output Total 550 Balance 700 700 - Medications Medications: Current Medications Acetaminophen (Tylenol 650mg/20.3ml Solution Ud) 650 mg PO Q6 PRN PRN Reason: Temperature Last Admin: 10/25/17 16:42 Dose: 650 mg Apixaban (Eliquis) 2.5 mg PO BID YUKI PRN Reason: Protocol Last Admin: 10/27/17 11:10 Dose: Not Given Cholecalciferol (Vitamin D) 5,000 iu PO DAILY [facility] Last Admin: 10/27/17 08:44 Dose: 5,000 intlu Diltiazem HCl (Cardizem) 30 mg PO 0300,0900,1500,2100 YUKI Last Admin: 10/27/17 08:31 Dose: 30 mg Dimethicone (Proshield Plus Skin Protectant) 1 applic TOP Q8 YUKI Last Admin: 10/27/17 08:35 Dose: 1 applic Ferrous Gluconate (Fergon) 324 mg PO DAILY [facility]I Last Admin: 10/27/17 08:33 Dose: 324 mg Furosemide (Lasix) 40 mg IV BID YUKI Last Admin: 10/27/17 08:27 Dose: 40 mg Acyclovir 500 mg/ Sodium (Chloride) 100 mls @ 100 mls/hr IV Q8 YUKI PRN Reason: Protocol Last Admin: 10/27/17 11:11 Dose: 100 mls/hr Vancomycin HCl 1,000 mg/ (Sodium Chloride) 250 mls @ 250 mls/hr IVPB Q48H YUKI PRN Reason: Protocol Lactobacillus Acidophilus (Bacid Acidophilus) 1 cap PO BID YUKI Last Admin: 10/27/17 08:32 Dose: 1 cap Lamotrigine (Lamictal) 50 mg PO Q12 [facility] Last Admin: 10/27/17 08:31 Dose: 50 mg Metoprolol Tartrate (Lopressor) 5 mg IVP Q6 [facility] Last Admin: 10/27/17 09:00 Dose: 5 mg Sildenafil Citrate (Revatio) 20 mg PO TID [facility] Last Admin: 10/27/17 08:35 Dose: 20 mg Spironolactone (Aldactone) 25 mg PO DAILY [facility] Last Admin: 10/27/17 08:31 Dose: 25 mg - Labs Labs: 10/27/17 07:08 10/27/17 07:08 PT 18.0 Seconds (9.8-13.1) H 10/26/17 12:30 INR 1.6 (0.9-1.2) H 10/26/17 12:30 APTT 34.4 Seconds (25.6-37.1) 10/26/17 12:30 - Constitutional Appears: Non-toxic, Chronically Ill - Head Exam Head Exam: NORMOCEPHALIC - Eye Exam Eye Exam: PERRL - ENT Exam ENT Exam: Mucous Membranes Dry - Neck Exam Neck Exam: absent: Lymphadenopathy - Respiratory Exam Respiratory Exam: Decreased Breath Sounds, Clear to Ausculation Bilateral - Cardiovascular Exam Cardiovascular Exam: REGULAR RHYTHM - GI/Abdominal Exam GI & Abdominal Exam: Distended, Soft - Rectal Exam Rectal Exam: Deferred - Exam Exam: NORMAL INSPECTION - Extremities Exam Extremities Exam: absent: Pedal Edema - Neurological Exam Neurological Exam: Alert, Awake, Oriented x3 Assessment and Plan (1) CANDELARIA (acute kidney injury) Status: Acute (2) Acute respiratory failure Status: Acute (3) Altered mental status Status: Acute (4) Diastolic CHF, acute on chronic Status: Acute (5) Pleural effusion, bilateral Status: Acute (6) Pneumonia Status: Acute (7) Aortic valve vegetation Status: Acute
[2017-10-27] MEDS ORDERED: Chlorhexidine Gluconate 1 APPL/PKT TP ONE (14:21)
--- NOTE | 2017-10-27 18:35 | CP.PCM.PN ---
Subjective - Date & Time of Evaluation Date of Evaluation: 10/27/17 Time of Evaluation: 16:00 - Subjective Subjective: F/U Respiratory failure eyes open , follows conversation , smiling , follows simple commands, on High Flow O2, BIPAP at night Objective - Vital Signs/Intake and Output Vital Signs (last 24 hours): Temp Pulse Resp BP Pulse Ox 97.3 F L 87 22 124/57 L 97 10/27/17 16:00 10/27/17 18:00 10/27/17 18:00 10/27/17 18:00 10/27/17 18:00 Intake and Output: 10/27/17 10/27/17 06:59 18:59 Intake Total 1250 1810 Output Total 550 1500 Balance 700 310 - Medications Medications: Current Medications Acetaminophen (Tylenol 650mg/20.3ml Solution Ud) 650 mg PO Q6 PRN PRN Reason: Temperature Last Admin: 10/25/17 16:42 Dose: 650 mg Apixaban (Eliquis) 2.5 mg PO BID YUKI PRN Reason: Protocol Last Admin: 10/27/17 16:16 Dose: Not Given Cholecalciferol (Vitamin D) 5,000 iu PO DAILY [facility] Last Admin: 10/27/17 08:44 Dose: 5,000 intlu Diltiazem HCl (Cardizem) 30 mg PO 0300,0900,1500,2100 [facility] Last Admin: 10/27/17 16:11 Dose: 30 mg Dimethicone (Proshield Plus Skin Protectant) 1 applic TOP Q8 [facility]UKI Last Admin: 10/27/17 16:27 Dose: 1 applic Ferrous Gluconate (Fergon) 324 mg PO DAILY [facility] Last Admin: 10/27/17 08:33 Dose: 324 mg Furosemide (Lasix) 40 mg IV BID YUKI Last Admin: 10/27/17 16:09 Dose: 40 mg Acyclovir 500 mg/ Sodium (Chloride) 100 mls @ 100 mls/hr IV Q8 YUKI PRN Reason: Protocol Last Admin: 10/27/17 16:17 Dose: 100 mls/hr Vancomycin HCl 1 gm/ Sodium (Chloride) 250 mls @ 250 mls/hr IVPB Q48H YUKI PRN Reason: Protocol Last Admin: 10/27/17 13:26 Dose: 250 mls/hr Lactobacillus Acidophilus (Bacid Acidophilus) 1 cap PO BID [facility]UKI Last Admin: 10/27/17 16:11 Dose: 1 cap Lamotrigine (Lamictal) 50 mg PO Q12 [facility] Last Admin: 10/27/17 08:31 Dose: 50 mg Metoprolol Tartrate (Lopressor) 5 mg IVP Q6 [facility] Last Admin: 10/27/17 16:02 Dose: 5 mg Sildenafil Citrate (Revatio) 20 mg PO TID [facility] Last Admin: 10/27/17 16:32 Dose: 20 mg Spironolactone (Aldactone) 25 mg PO DAILY [facility] Last Admin: 10/27/17 08:31 Dose: 25 mg - Labs Labs: 10/27/17 07:08 10/27/17 07:08 PT 18.0 Seconds (9.8-13.1) H 10/26/17 12:30 INR 1.6 (0.9-1.2) H 10/26/17 12:30 APTT 34.4 Seconds (25.6-37.1) 10/26/17 12:30 - Constitutional Appears: No Acute Distress, Chronically Ill - Head Exam Head Exam: NORMAL INSPECTION - Eye Exam Eye Exam: PERRL - ENT Exam ENT Exam: Normal Exam - Neck Exam Neck Exam: Normal Inspection - Respiratory Exam Respiratory Exam: Decreased Breath Sounds (at bases) - Cardiovascular Exam Cardiovascular Exam: Irregular Rhythm - GI/Abdominal Exam GI & Abdominal Exam: Soft, Normal Bowel Sounds - Extremities Exam Extremities Exam: Pedal Edema - Back Exam Additional comments: DTI sacrum - Neurological Exam Neurological Exam: Awake Additional comments: Follows conversation ,follows simple commands generalized weakness. - Psychiatric Exam Psychiatric exam: Normal Mood - Skin Skin Exam: Warm Assessment and Plan (1) Acute respiratory failure with hypoxia Status: Acute (2) Pleural effusion, bilateral Status: Acute (3) Hx of seizure disorder Status: Chronic (4) Diastolic CHF, acute on chronic Status: Acute (5) A-fib Status: Chronic (6) Encephalopathy Status: Acute (7) CANDELARIA (acute kidney injury) Status: Acute (8) Anemia Status: Chronic (9) Aortic valve vegetation Status: Acute (10) SUSAN (obstructive sleep apnea) Status: Chronic - Assessment and Plan (Free Text) Plan: CXR improved R effusion, L effusion same , increased pulmonary secretions , sputum G (-) rods , f/u C-S , Vanco for Aortic valve vegetation , CT Chest am , Heart rate stable, continue Cardizem , Lopressor, Lasix , Aldactone ICU Time: 40 min.
--- NOTE | 2017-10-27 23:38 | CP.PCM.PN ---
Subjective - Date & Time of Evaluation Date of Evaluation: 10/27/17 Time of Evaluation: 21:00 - Subjective Subjective: He had a spell of tachycardia at 112/minute. Otherwise he is stable receiving O2 in day time and CPAP at night time. No seizures were reported. VS are stable now. Objective - Vital Signs/Intake and Output Vital Signs (last 24 hours): Temp Pulse Resp BP Pulse Ox 97.7 F 72 22 122/63 100 10/27/17 20:00 10/27/17 22:00 10/27/17 22:00 10/27/17 22:00 10/27/17 21:16 Intake and Output: 10/27/17 10/28/17 18:59 06:59 Intake Total 1810 380 Output Total 1500 Balance 310 380 - Medications Medications: Current Medications Acetaminophen (Tylenol 650mg/20.3ml Solution Ud) 650 mg PO Q6 PRN PRN Reason: Temperature Last Admin: 10/25/17 16:42 Dose: 650 mg Apixaban (Eliquis) 2.5 mg PO BID YUKI PRN Reason: Protocol Last Admin: 10/27/17 16:16 Dose: Not Given Cholecalciferol (Vitamin D) 5,000 iu PO DAILY [facility] Last Admin: 10/27/17 08:44 Dose: 5,000 intlu Diltiazem HCl (Cardizem) 30 mg PO 0300,0900,1500,2100 [facility] Last Admin: 10/27/17 21:16 Dose: 30 mg Dimethicone (Proshield Plus Skin Protectant) 1 applic TOP Q8 [facility] Last Admin: 10/27/17 16:27 Dose: 1 applic Ferrous Gluconate (Fergon) 324 mg PO DAILY [facility] Last Admin: 10/27/17 08:33 Dose: 324 mg Furosemide (Lasix) 40 mg IV BID [facility] Last Admin: 10/27/17 16:09 Dose: 40 mg Acyclovir 500 mg/ Sodium (Chloride) 100 mls @ 100 mls/hr IV Q8 YUKI PRN Reason: Protocol Last Admin: 10/27/17 16:17 Dose: 100 mls/hr Vancomycin HCl 1 gm/ Sodium (Chloride) 250 mls @ 250 mls/hr IVPB Q48H YUKI PRN Reason: Protocol Last Admin: 10/27/17 13:26 Dose: 250 mls/hr Lactobacillus Acidophilus (Bacid Acidophilus) 1 cap PO BID [facility] Last Admin: 10/27/17 16:11 Dose: 1 cap Lamotrigine (Lamictal) 50 mg PO Q12 [facility] Last Admin: 10/27/17 21:12 Dose: 50 mg Metoprolol Tartrate (Lopressor) 5 mg IVP Q6 [facility] Last Admin: 10/27/17 21:17 Dose: 5 mg Sildenafil Citrate (Revatio) 20 mg PO TID [facility] Last Admin: 10/27/17 16:32 Dose: 20 mg Spironolactone (Aldactone) 25 mg PO DAILY [facility] Last Admin: 10/27/17 08:31 Dose: 25 mg - Labs Labs: 10/27/17 07:08 10/27/17 07:08 PT 18.0 Seconds (9.8-13.1) H 10/26/17 12:30 INR 1.6 (0.9-1.2) H 10/26/17 12:30 APTT 34.4 Seconds (25.6-37.1) 10/26/17 12:30 Assessment and Plan (1) CANDELARIA (acute kidney injury) Status: Acute (2) Acute respiratory failure Status: Acute (3) Altered mental status Status: Acute (4) Pleural effusion, bilateral Status: Acute (5) Pneumonia Status: Acute (6) Seizure disorder Status: Suspected (7) Encephalopathy Status: Acute
[2017-10-28] MEDS: Proshield Plus GEL TOP SCH ×3 (01:56→18:34)
[2017-10-28] MEDS: Acyclovir 500 MG in Sodium Chloride 0.9% 100 ML IV SCH ×3 (01:56→16:51)
[2017-10-28] MEDS: Metoprolol 1 mg/ml Inj IVP SCH ×4 (03:07→23:22)
[2017-10-28 05:28] LABS: HEMOGLOBIN 9.7 g/dL (12.0-18.0); MEAN CELL VOLUME 94.4 fl (80.0-94.0); MEAN CORPUSCULAR HEMOGLOBIN 30.5 pg (27.0-31.0); MEAN CORPUSCULAR HGB CONC 32.3 g/dL (33.0-37.0); RBC 3.18 Mil/uL (4.40-5.90); RED CELL DISTRIBUTION WIDTH 23.1 % (11.5-14.5); WHITE BLOOD COUNT 9.1 K/uL (4.8-10.8)
[2017-10-28 05:32] LABS: BLOOD UREA NITROGEN 34 mg/dl (9-20); GFR AFRICAN-AMERICAN > 60; GFR NON-AFRICAN AMERICAN > 60
--- NOTE | 2017-10-28 07:20 | CP.CCUPN ---
CCU Subjective - Physician Review Subjective (Free Text): 10/01/17 16:03 The patient was Seen and examined by me at the bedside, Medical records reviewed and Management issues were discussed and formulated with the house staff. 77 Years old Male with Multiple medical conditions including Atrial Fibrillation (on coumadin), CHF, CVA, HTN, Peripheral Edema, Seizures, Sleep Apnea, TIA Who was brought by EMS along with his to the Emergency Department for AMS Per , she was told by Dr. Escamilla to come to ED for "observation" She states that he has been on antibiotics for cough for 2 days and now develop hallucination secondary to antibiotics. In the ER he was very hypothermic, lethargic but respond to basic commands CXR showing bilateral pleural effusion and bibasilar opacity Tachypnea, placed on 50% VM Blood culture drawn and Received one dose of IV Rocephin and Zithromax Admitted to the ICU for Acute hypercarbic and Hypoxemic respiratory failure and severe sepsis Chest CT scan revealed moderate bilateral pleural effusion with atelectasis PT also had Elevated INR, received TOTAL 4U FFP 09/24, Underwent Left (8 fr) pig tail placement with about 500 serious fluid drained 09/25, Underwent Right (8 fr) pig tail placement and Left CT removed Right pig tail not functioning and Patient Underwent US guided placement of a right chest tube, 8 fr today Also Underwent US guided dual lumen picc placement via the right basilic vein 10/16, Underwent STEVEN with elective cardioversion (negative for clot) 10/28/17 11:25 Today he is more awake, and interactive, comfortable, NAD Clinically improving and hemodynamically stable No Vasopressors Patient on high flow O2 supplement alternating with nocturnal BIPAP Afebrile and no leucocytosis A-Fib on monitor, HR controlled Tolerating tube feeding Evaluated by Speach therapy, deemed high risk for aspiration and will be re- evaluated Evaluated by PT/OT AM Labs,showing improved renal function, BUN/Cr down to 34/1.0 and no leucocytosis Scheduled for L thoracocentesis today CCU Objective - Vital Signs / Intake & Output Vital Signs (Last 4 hours): Vital Signs Temp Pulse Resp BP Pulse Ox 10/28/17 06:00 94 H 23 137/74 97 10/28/17 04:25 22 10/28/17 04:00 98.8 F 84 23 136/62 100 Intake and Output (Last 8hrs): Intake & Output 10/27/17 10/28/17 10/28/17 22:59 06:59 14:59 Intake Total 1240 815 Output Total 1500 1500 Balance -260 -685 Intake: Intake, Piggyback 120 100 Tube Feeding 720 315 Free Water Flush 400 400 Output: Urine 1500 1500 Urethral (Wang) 1500 1500 Other: # Bowel Movements 1 2 - Physical Exam Head: Positive for: Atraumatic, Normocephalic Pupils: Positive for: PERRL, Sluggish Extroacular Muscles: Positive for: EOMI Conjunctiva: Positive for: Normal. Negative for: Icteric Ears: Positive for: Normal Mouth: Positive for: Moist Mucous Membranes Pharnyx: Negative for: ERYTHEMA Neck: Positive for: Normal Range of Motion. Negative for: JVD Respiratory/Chest: Positive for: Decreased Breath Sounds, Rhonchi (upper airway rhonchi), Tachypneic. Negative for: Accessory Muscle Use, Wheezes Cardiovascular: Positive for: Irregular Rhythm, Peripheal Pulses Present, Tachycardic. Negative for: Murmurs, Normal S1, S2, Rub Abdomen: Positive for: Normal Bowel Sounds. Negative for: Tenderness, Distention, Peritoneal Signs Upper Extremity: Positive for: Edema Lower Extremity: Positive for: Edema, NORMAL PULSES. Negative for: CALF TENDERNESS, Cyanosis Neurological: Positive for: Other (withdraws to deep pain) Skin: Positive for: Warm, Dry. Negative for: Rashes Psychiatric: Positive for: Alert, Oriented x 3, Lethargic - Medications Active Medications: Active Medications Generic Name Dose Route Start Last Admin Trade Name Billyq PRN Reason Stop Dose Admin Acetaminophen 650 mg 10/25/17 16:16 10/25/17 16:42 Tylenol 650mg/20.3ml Solution Ud PO 650 mg Q6 PRN Administration Temperature Apixaban 2.5 mg 10/25/17 09:00 10/27/17 16:16 Eliquis PO Not Given BID [facility] Protocol Cholecalciferol 5,000 iu 10/18/17 09:00 10/27/17 08:44 Vitamin D PO 5,000 intlu DAILY YUKI Administration Diltiazem HCl 30 mg 10/18/17 03:00 10/28/17 02:51 Cardizem PO 30 mg 0300,0900,1500,2100 YUKI Administration Dimethicone 1 applic 10/23/17 09:00 10/28/17 01:56 Proshield Plus Skin Protectant TOP 1 applic Q8 YUKI Administration Ferrous Gluconate 324 mg 10/24/17 09:00 10/27/17 08:33 Fergon PO 324 mg DAILY [facility] Administration Furosemide 40 mg 10/15/17 17:00 10/27/17 16:09 Lasix IV 40 mg BID YUKI Administration Acyclovir 500 mg/ Sodium 100 mls @ 100 mls/hr 10/16/17 17:00 10/28/17 01:56 Chloride IV 100 mls/hr Q8 YUKI Administration Protocol Vancomycin HCl 1 gm/ Sodium 250 mls @ 250 mls/hr 10/27/17 12:45 10/27/17 13: 26 Chloride IVPB 250 mls/hr Q48H YUKI Administration Protocol Lactobacillus Acidophilus 1 cap 10/08/17 09:00 10/27/17 16:11 Bacid Acidophilus PO 1 cap BID [facility]I Administration Lamotrigine 50 mg 10/16/17 09:00 10/27/17 21:12 Lamictal PO 50 mg Q12 [facility] Administration Metoprolol Tartrate 5 mg 10/15/17 16:28 10/28/17 03:07 Lopressor IVP 5 mg Q6 [facility] Administration Sildenafil Citrate 20 mg 10/25/17 13:00 10/27/17 16:32 Revatio PO 20 mg TID [facility] Administration Spironolactone 25 mg 10/24/17 19:00 10/27/17 08:31 Aldactone PO 25 mg DAILY YUKI Administration - Patient Studies Lab Studies: Microbiology Studies 10/25/17 08:30 Gram Stain - Final Sputum Sputum Culture - Preliminary Gram Negative Vicente Lab Studies 10/28/17 10/28/17 10/27/17 Range/Units 04:20 04:20 07:08 WBC 9.1 (4.8-10.8) K/uL RBC 3.18 L (4.40-5.90) Mil/uL Hgb 9.7 L (12.0-18.0) g/dL Hct 30.0 L (35.0-51.0) % MCV 94.4 H (80.0-94.0) fl MCH 30.5 (27.0-31.0) pg MCHC 32.3 L (33.0-37.0) g/dL RDW 23.1 H (11.5-14.5) % Plt Count 275 (130-400) K/uL MPV (7.2-11.7) fl Neut % (Auto) (50.0-75.0) % Lymph % (Auto) (20.0-40.0) % Mcpherson % (Auto) (0.0-10.0) % Eos % (Auto) (0.0-4.0) % Baso % (Auto) (0.0-2.0) % Neut # (1.8-7.0) K/uL Lymph # (1.0-4.3) K/uL Mcpherson # (0.0-0.8) K/uL Eos # (0.0-0.7) K/uL Baso # (0.0-0.2) K/uL Sodium 141 142 (132-148) mmol/l Potassium 4.2 4.3 (3.6-5.0) MMOL/L Chloride 105 106 (98-107) mmol/L Carbon Dioxide 31 H 29 (22-30) mmol/L Anion Gap 9 L 11 (10-20) BUN 34 H 37 H (9-20) mg/dl Creatinine 1.0 1.1 (0.8-1.5) mg/dl Est GFR ( Amer) > 60 > 60 Est GFR (Non-Af Amer) > 60 > 60 Random Glucose 140 H 131 H (75-110) mg/dL Calcium 8.0 L 8.1 L (8.4-10.2) mg/dL Total Bilirubin 0.3 (0.2-1.3) mg/dl AST 22 (17-59) U/L ALT 27 (21-72) U/L Alkaline Phosphatase 98 (38-126) U/L Total Protein 6.8 (6.3-8.2) G/DL Albumin 2.7 L (3.5-5.0) g/dL Globulin 4.1 H (2.2-3.9) gm/dL Albumin/Globulin Ratio 0.7 L (1.0-2.1) 10/27/17 Range/Units 07:08 WBC 7.3 (4.8-10.8) K/uL RBC 3.45 L (4.40-5.90) Mil/uL Hgb 10.4 L (12.0-18.0) g/dL Hct 32.8 L (35.0-51.0) % MCV 94.9 H (80.0-94.0) fl MCH 30.0 (27.0-31.0) pg MCHC 31.6 L (33.0-37.0) g/dL RDW 23.5 H (11.5-14.5) % Plt Count 263 (130-400) K/uL MPV 7.6 (7.2-11.7) fl Neut % (Auto) 74.5 (50.0-75.0) % Lymph % (Auto) 14.3 L (20.0-40.0) % Mcpherson % (Auto) 8.7 (0.0-10.0) % Eos % (Auto) 2.3 (0.0-4.0) % Baso % (Auto) 0.2 (0.0-2.0) % Neut # 5.4 (1.8-7.0) K/uL Lymph # 1.0 (1.0-4.3) K/uL Mcpherson # 0.6 (0.0-0.8) K/uL Eos # 0.2 (0.0-0.7) K/uL Baso # 0.0 (0.0-0.2) K/uL Sodium (132-148) mmol/l Potassium (3.6-5.0) MMOL/L Chloride (98-107) mmol/L Carbon Dioxide (22-30) mmol/L Anion Gap (10-20) BUN (9-20) mg/dl Creatinine (0.8-1.5) mg/dl Est GFR ( Amer) Est GFR (Non-Af Amer) Random Glucose (75-110) mg/dL Calcium (8.4-10.2) mg/dL Total Bilirubin (0.2-1.3) mg/dl AST (17-59) U/L ALT (21-72) U/L Alkaline Phosphatase (38-126) U/L Total Protein (6.3-8.2) G/DL Albumin (3.5-5.0) g/dL Globulin (2.2-3.9) gm/dL Albumin/Globulin Ratio (1.0-2.1) Laboratory Results - last 24 hr 10/27/17 10/27/17 10/28/17 07:08 07:08 04:20 WBC 7.3 9.1 RBC 3.45 L 3.18 L Hgb 10.4 L 9.7 L Hct 32.8 L 30.0 L MCV 94.9 H 94.4 H MCH 30.0 30.5 MCHC 31.6 L 32.3 L RDW 23.5 H 23.1 H Plt Count 263 275 MPV 7.6 Neut % (Auto) 74.5 Lymph % (Auto) 14.3 L Mcpherson % (Auto) 8.7 Eos % (Auto) 2.3 Baso % (Auto) 0.2 Neut # 5.4 Lymph # 1.0 Mcpherson # 0.6 Eos # 0.2 Baso # 0.0 Sodium 142 Potassium 4.3 Chloride 106 Carbon Dioxide 29 Anion Gap 11 BUN 37 H Creatinine 1.1 Est GFR ( Amer) > 60 Est GFR (Non-Af Amer) > 60 Random Glucose 131 H Calcium 8.1 L Total Bilirubin 0.3 AST 22 ALT 27 Alkaline Phosphatase 98 Total Protein 6.8 Albumin 2.7 L Globulin 4.1 H Albumin/Globulin Ratio 0.7 L 10/28/17 04:20 WBC RBC Hgb Hct MCV MCH MCHC RDW Plt Count MPV Neut % (Auto) Lymph % (Auto) Mcpherson % (Auto) Eos % (Auto) Baso % (Auto) Neut # Lymph # Mcpherson # Eos # Baso # Sodium 141 Potassium 4.2 Chloride 105 Carbon Dioxide 31 H Anion Gap 9 L BUN 34 H Creatinine 1.0 Est GFR ( Amer) > 60 Est GFR (Non-Af Amer) > 60 Random Glucose 140 H Calcium 8.0 L Total Bilirubin AST ALT Alkaline Phosphatase Total Protein Albumin Globulin Albumin/Globulin Ratio Fingerstick Blood Sugar Results: 83 Assessment/Plan (1) Acute respiratory failure with hypoxia Current Visit: Yes Status: Acute Priority: High Comment: Acute hypercarbic and Hypoxemic respiratory failure secondary to likely aspiration pneumonia with pleural effusion in the setting of severe Respiratory muscle weakness Continue with ICU care for hemodynamic and Respiratory monitoring Successfully extubated IV Vancomycin, Metronidazole and Acyclovir Diuresis with lasix drip Strict I&O, negative fluid balance Aggressive pulmonary toilet, chest PT, suctioning nebulizer treatment Maintain aspiration precautions GI/DVT PPX (2) CANDELARIA (acute kidney injury) Current Visit: Yes Status: Deleted Priority: High Comment: Improved renal function, Cr down to 0.9 Off all nephrotoxic medications Renally adjust medication dose (3) Altered mental status Current Visit: Yes Status: Acute Priority: High Comment: More awake, interactive Toxic/metabolic encephalopathy, multifactorial in the sitting of Acute hypercarbic and Hypoxemic respiratory failure (4) Aspiration pneumonia Current Visit: No Status: Resolved Priority: High (5) Pleural effusion, bilateral Current Visit: Yes Status: Acute Priority: High Comment: corrected coagulopathy 09/24, Underwent Left pig tail placement today with about 500 serious fluid drained 09/25, Underwent Right (8 fr) pig tail placement and Left CT removed 10/01, US guided placement of a right chest tube, 8 fr (6) A-fib Current Visit: No Status: Chronic Priority: High Comment: Continue IV Metoprolol and cardiazem 30 mg PO Q 6H HR better Off AC for now (7) Seizure disorder Current Visit: No Status: Chronic Priority: Medium Comment: Continue LamoTRIgine [Lamictal] 25 mg BID
[2017-10-28] MEDS: Lactobacillus Acidophilus 500 MU Cap PO SCH ×2 (08:20→16:45)
[2017-10-28] MEDS: Sildenafil 20 MG TAB PO SCH ×3 (08:20→16:51)
[2017-10-28] MEDS: Cholecalciferol 1,000 INTLU TAB PO SCH (08:21)
--- NOTE | 2017-10-28 08:40 | PN ---
DATE: 10/27/2017 CRITICAL CARE PROGRESS NOTE LOCATION: The patient in ICU, bed 431. TIME SPENT: 35 minutes. SUBJECTIVE: The patient is seen, evaluated at the bedside. Past medical, surgical, social history reviewed. Events since admission and clinical course noted. A 77-year-old male with dementia, seizure disorder, chronic atrial fibrillation, diastolic heart failure, pulmonary hypertension, chronic kidney disease stage 3, bilateral pleural effusion, status post repeated thoracentesis, on high-flow nasal oxygen. Overnight, afebrile, normotensive. Arousable. Eyes open intermittently. Noted to be more wakeful this morning. No distress noted. No cough or shortness of breath as per his who is the caregiver. PHYSICAL EXAMINATION: VITAL SIGNS: Temperature 96.4, heart rate 95, respiratory rate 17, blood pressure 124/74. Intake 2743, output 1550, positive balance 1193. HEAD, EYES, EARS, NOSE AND THROAT: Pupils reactive. Conjunctivae pink. Sclerae white. NECK: Bent, but supple. CHEST: Bilateral breath sounds, diminished intensity. Fine crepitations at the base. HEART: Rhythm irregular. No audible murmur. ABDOMEN: Bowel sounds are present. Soft. EXTREMITIES: With edema. NEUROLOGIC: Opens eyes, not interactive verbally. CURRENT MEDICATIONS: Tylenol 650 q. 6 p.r.n., acyclovir 500 mg IV q. 8, Eliquis 2.5 mg twice daily, vitamin D 5000 units p.o. daily, diltiazem 30 mg q. 6 hours, Proshield one application topically q. 8 hours, ferrous gluconate 324 mg by mouth daily, Lasix 40 mg IV twice daily, lactobacillus 1 capsule b.i.d., Lamictal 50 mg q. 12, Lopressor 5 mg IV q. 6, Revatio 20 mg p.o. three times daily, Aldactone 25 mg daily, vancomycin 750 mg q. 24 hours. LABORATORY DATA: WBC 7.3, hemoglobin 10.4, hematocrit 32.8, platelet count 263, neutrophils 74.5, lymphocytes 14.3, monocytes 8.7. PT 18, INR 1.6, PTT 34.4. ABG: PH 7.41, pCO2 of 47, pO2 of 78, saturation 94.9%. SMA-7: Sodium 142, potassium 4.3, chloride 106, CO2 of 29, blood urea nitrogen 37, creatinine 1.1, glucose 131, calcium 8.1, total bilirubin 0.3, AST 22, ALT 27, alkaline phosphatase 98, total protein 6.8, albumin 2.7, lamotrigine level 0.6. Microbiology: Sputum culture pending. Urine culture, no growth. Blood culture, no growth as on blood drawn on 10/14/2017. Chest x-ray repeated yesterday. Bilateral pleural effusion with atelectasis, persistent, more on the left than right as per the x-ray done yesterday, but for the position. IMPRESSION: 1. Neurologic: No significant change. History of seizure, on Lamictal, dose increased by Neurology. No visible seizure noted to possible underlying dementia. 2. Cardiac: Atrial fibrillation, controlled on Eliquis. Metoprolol 5 mg intravenous q. 6 hours, Aldactone 25 mg daily. 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 24 hours. May need prolonged antibiotics to clear off the vegetations. Pulmonary hypertension, on sildenafil 20 mg p.o. daily. 3. Pulmonary: Hypoxic hypercapnic respiratory insufficiency. Bilateral recurrent pleural effusion. To discuss with Dr. Escamilla regarding further plan of care. Thoracentesis versus pigtail catheter. If planned for procedure, hold Eliquis. 4. Gastrointestinal: Nasogastric tube in place. Feeding in progress. No further diarrhea noted. Clostridium difficile antigen still remains positive. 5. Renal: Chronic kidney disease. Stable renal function now. No further electrolyte abnormalities. 6. Endocrine: Blood sugar maintained below 180. 7. Fluids, electrolytes and nutrition: Replace electrolytes as needed. Continue deep venous thrombosis prophylaxis, currently on Eliquis. Clive Buckner MD
--- NOTE | 2017-10-28 08:42 | PN ---
DATE: 10/26/2017 CRITICAL CARE PROGRESS NOTE LOCATION: Patient in ICU, bed 431. TIME SPENT: 35 minutes. SUBJECTIVE: Patient is seen and evaluated at the bed side. Events since 09/15 reviewed and noted. Status post transesophageal echocardiogram, suspected aortic valve vegetation with perforation. Seen by ID, currently on antibiotics for endocarditis; however, patient's blood cultures remain negative. This morning, remains lethargic, on high-flow nasal oxygen. at the bedside reports that he is able to follow her conversation by moving his eyes. Patient remains nonverbal, being fed through the NG tube. Noted to have rapid AFib, on digoxin and on Eliquis. PHYSICAL EXAMINATION: VITAL SIGNS: Temperature 98.4; heart rate of 104, irregular; blood pressure 127/55, mean arterial pressure 79, respiratory rate 16; saturating 100%. Intake 2604, output 1890, positive balance 714. HEAD, EYES, EARS, NOSE AND THROAT: Pupils reactive. Conjunctivae pale. Sclerae white. NECK: Supple. Reduced movement due to cervical spondylosis. CHEST: Bilateral breath sounds. Fine crepitations at the bases. HEART: Rhythm irregular. No audible murmur. ABDOMEN: Bowel sounds present. Soft. EXTREMITIES: Dependent edema. NEUROLOGIC: Nonverbal, not interactive, reportedly follows with his eye movement on conversation as per . CURRENT MEDICATIONS: Include Tylenol 650 q. 6 p.r.n., acyclovir 500 mg IV q. 8, Eliquis 2.5 mg b.i.d., vitamin D 5000 international units p.o. daily, diltiazem 30 mg p.o. every 6 hours,Proshield one application topically q. 8 hours, ferrous gluconate 325 mg daily, Lasix 40 mg IV b.i.d., lactobacillus one capsule b.i.d., Lamictal 50 mg p.o. q. 12 hours, Lopressor 5 mg IV q. 6, sildenafil 20 mg p.o. three times daily, Aldactone 25 mg p.o. daily,vancomycin 750 mg IV q. 24 hours. IMPRESSION: 1. Neurological: Status post cerebrovascular accident. Seizure disorder, on Lamictal, dose increased to 50 mg q. 12. Repeat EEG showed epileptiform focus. Resolving metabolic encephalopathy. Hypoxia, on high-flow oxygen. 2. Pulmonary: Hypercapnic hypoxic respiratory failure, on high-flow nasal oxygen. Bilateral pleural effusion more on the right than the left, status post thoracentesis, may need pigtail catheter for continuous drainage. 3. Cardiac: History of chronic atrial fibrillation, rate controlled. Currently on amiodarone, metoprolol, digoxin. Status post transesophageal echocardiography. Endocarditis, antibiotic as per Dr. Winslow. 4. Renal: Chronic renal insufficiency. Currently, BUN 36, creatinine 1.1. No other acute electrolyte abnormalities noted. 5. Hematology. Leukocytosis resolved. Anemia of chronic disease, mild coagulopathy. 6. Infectious Disease: Status post transesophageal echocardiography, showed possible endocarditis, on vancomycin. Stool for Clostridium difficile positive. Currently off Flagyl. 7. Continue occupational therapy, physical therapy as tolerated. On sports medicine bed for percussion and to reduce atelectasis as per discussion with PMD/pulmonology, probably for repeat thoracentesis on Saturday and for imaging to look for any new infiltrate and/or septic emboli. Clive Buckner MD
--- NOTE | 2017-10-28 13:52 | CP.PCM.PN ---
Subjective - Date & Time of Evaluation Date of Evaluation: 10/28/17 Time of Evaluation: 11:00 - Subjective Subjective: F/U Respiratory failure. Eyes open , smiling , able to talk with single words , follows simple commands Objective - Vital Signs/Intake and Output Vital Signs (last 24 hours): Temp Pulse Resp BP Pulse Ox 98.5 F 109 H 15 119/76 100 10/28/17 12:00 10/28/17 12:00 10/28/17 12:00 10/28/17 12:00 10/28/17 12:00 Intake and Output: 10/28/17 10/28/17 06:59 18:59 Intake Total 1195 708 Output Total 1500 0 Balance -305 708 - Medications Medications: Current Medications Acetaminophen (Tylenol 650mg/20.3ml Solution Ud) 650 mg PO Q6 PRN PRN Reason: Temperature Last Admin: 10/25/17 16:42 Dose: 650 mg Apixaban (Eliquis) 2.5 mg PO BID [facility] PRN Reason: Protocol Last Admin: 10/28/17 11:46 Dose: Not Given Cholecalciferol (Vitamin D) 5,000 iu PO DAILY [facility] Last Admin: 10/28/17 08:21 Dose: 5,000 intlu Diltiazem HCl (Cardizem) 30 mg PO 0300,0900,1500,2100 [facility] Last Admin: 10/28/17 08:21 Dose: 30 mg Dimethicone (Proshield Plus Skin Protectant) 1 applic TOP Q8 [facility] Last Admin: 10/28/17 08:23 Dose: 1 applic Ferrous Gluconate (Fergon) 324 mg PO DAILY [facility] Last Admin: 10/28/17 08:22 Dose: 324 mg Furosemide (Lasix) 40 mg IV BID [facility] Last Admin: 10/28/17 08:23 Dose: 40 mg Acyclovir 500 mg/ Sodium (Chloride) 100 mls @ 100 mls/hr IV Q8 [facility] PRN Reason: Protocol Last Admin: 10/28/17 10:50 Dose: 100 mls/hr Vancomycin HCl 1 gm/ Sodium (Chloride) 250 mls @ 250 mls/hr IVPB Q48H [facility] PRN Reason: Protocol Last Admin: 10/27/17 13:26 Dose: 250 mls/hr Lactobacillus Acidophilus (Bacid Acidophilus) 1 cap PO BID [facility] Last Admin: 10/28/17 08:20 Dose: 1 cap Lamotrigine (Lamictal) 50 mg PO Q12 [facility] Last Admin: 10/28/17 08:21 Dose: 50 mg Metoprolol Tartrate (Lopressor) 5 mg IVP Q6 [facility] Last Admin: 10/28/17 09:18 Dose: 5 mg Sildenafil Citrate (Revatio) 20 mg PO TID [facility] Last Admin: 10/28/17 13:49 Dose: 20 mg Spironolactone (Aldactone) 25 mg PO DAILY [facility] Last Admin: 10/28/17 08:22 Dose: 25 mg - Labs Labs: 10/28/17 04:20 10/28/17 04:20 PT 18.0 Seconds (9.8-13.1) H 10/26/17 12:30 INR 1.6 (0.9-1.2) H 10/26/17 12:30 APTT 34.4 Seconds (25.6-37.1) 10/26/17 12:30 - Constitutional Appears: Chronically Ill - Head Exam Head Exam: NORMAL INSPECTION - Eye Exam Eye Exam: PERRL - ENT Exam ENT Exam: Normal Exam - Neck Exam Neck Exam: Normal Inspection - Respiratory Exam Respiratory Exam: Decreased Breath Sounds (at bases) - Cardiovascular Exam Cardiovascular Exam: Irregular Rhythm - GI/Abdominal Exam GI & Abdominal Exam: Soft, Normal Bowel Sounds - Extremities Exam Extremities Exam: Normal Inspection - Back Exam Additional comments: DTI sacrum improving - Neurological Exam Neurological Exam: Awake Additional comments: Follows commands, able to talk with single words, generalized weakness. - Psychiatric Exam Additional comments: Calm - Skin Skin Exam: Warm Assessment and Plan (1) Acute respiratory failure with hypoxia Status: Acute (2) Pleural effusion, bilateral Status: Acute (3) Hx of seizure disorder Status: Chronic (4) Diastolic CHF, acute on chronic Status: Acute (5) A-fib Status: Chronic (6) Encephalopathy Status: Acute (7) CANDELARIA (acute kidney injury) Status: Acute (8) Anemia Status: Chronic (9) Aortic valve vegetation Status: Acute (10) SUSAN (obstructive sleep apnea) Status: Chronic - Assessment and Plan (Free Text) Plan: CT Chest decrease R pleural effusion , improving aereation R lung , increase with large L pleural effusion ,compressive atelectasis LLL> BRIANNE, [place] rate stable , Patient on high flow O2 and BIPAP at night, continue Lasix , Lopressor , Cardizem , Vanco and rest of treatment, Eliquis on hold , IR Consult for L Thoracentesis and Pigtail. ICU Time: 40 min.
--- NOTE | 2017-10-28 15:25 | CT ---
PROCEDURE: CT Chest without contrast HISTORY: Respiratory Failure,Pleural effusion , PNA Relevant interventional procedure(s): 10/15/2017 right thoracentesis. 1.2 L of fluid was removed at that time. COMPARISON: None. TECHNIQUE: Contiguous axial images were obtained through the chest without intravenous contrast enhancement. Sagittal and coronal reconstructions were performed. Radiation dose (DLP): 715.25 open mGy-cm. This CT exam was performed using one or more of the following dose reduction techniques: Automated exposure control, adjustment of the mA and/or kV according to patient size, and/or use of iterative reconstruction technique. FINDINGS: LUNGS: Improved aeration of the right lung with concomitant decrease in right pleural effusion. Compressive atelectasis related to increase in size of previously identified small pleural effusion. The left pleural effusion would not be categorized as moderate -large. MEDIASTINUM: Unremarkable thoracic aorta. No aneurysm. Cardiomegaly. No evidence of acute congestive heart failure. Position/ configuration of pacemaker unremarkable. No vascular congestion. No lymphadenopathy. PLEURA: Decrease in size, complex [place] of right pleural effusion. Increasing left pleural effusion which is partially loculated she BONES: No fracture. No destructive lesion. UPPER ABDOMEN: Nasogastric tube identified in a decompressed stomach. OTHER FINDINGS: Incompletely visualized, characterize nodule right thyroid lobe. This was better appreciated on the prior study. IMPRESSION: Decrease in right pleural effusion, improved aeration right lung. Increase in what is now a large left pleural effusion with compressive atelectasis affecting both left lower lobe and to lesser extent left upper lobe. Bold
--- NOTE | 2017-10-28 18:39 | CP.PCM.PN ---
Subjective - Date & Time of Evaluation Date of Evaluation: 10/28/17 Time of Evaluation: 18:37 - Subjective Subjective: BNP trending down awake and more responsive Objective - Vital Signs/Intake and Output Vital Signs (last 24 hours): Temp Pulse Resp BP Pulse Ox 98.8 F 93 H 22 122/73 100 10/28/17 16:00 10/28/17 18:00 10/28/17 18:00 10/28/17 18:00 10/28/17 18:00 Intake and Output: 10/28/17 10/28/17 06:59 18:59 Intake Total 1195 1616 Output Total 1500 1100 Balance -305 516 - Medications Medications: Current Medications Acetaminophen (Tylenol 650mg/20.3ml Solution Ud) 650 mg PO Q6 PRN PRN Reason: Temperature Last Admin: 10/25/17 16:42 Dose: 650 mg Apixaban (Eliquis) 2.5 mg PO BID [facility] PRN Reason: Protocol Last Admin: 10/28/17 18:33 Dose: Not Given Cholecalciferol (Vitamin D) 5,000 iu PO DAILY [facility] Last Admin: 10/28/17 08:21 Dose: 5,000 intlu Diltiazem HCl (Cardizem) 30 mg PO 0300,0900,1500,2100 [facility] Last Admin: 10/28/17 16:46 Dose: 30 mg Dimethicone (Proshield Plus Skin Protectant) 1 applic TOP Q8 [facility] Last Admin: 10/28/17 18:34 Dose: Not Given Ferrous Gluconate (Fergon) 324 mg PO DAILY [facility] Last Admin: 10/28/17 08:22 Dose: 324 mg Furosemide (Lasix) 40 mg IV BID [facility] Last Admin: 10/28/17 16:47 Dose: 40 mg Acyclovir 500 mg/ Sodium (Chloride) 100 mls @ 100 mls/hr IV Q8 [facility] PRN Reason: Protocol Last Admin: 10/28/17 16:51 Dose: 100 mls/hr Vancomycin HCl 1 gm/ Sodium (Chloride) 250 mls @ 250 mls/hr IVPB Q48H [facility] PRN Reason: Protocol Last Admin: 10/27/17 13:26 Dose: 250 mls/hr Lactobacillus Acidophilus (Bacid Acidophilus) 1 cap PO BID [facility] Last Admin: 10/28/17 16:45 Dose: 1 cap Lamotrigine (Lamictal) 50 mg PO Q12 [facility] Last Admin: 10/28/17 08:21 Dose: 50 mg Metoprolol Tartrate (Lopressor) 5 mg IVP Q6 [facility] Last Admin: 10/28/17 16:47 Dose: 5 mg Sildenafil Citrate (Revatio) 20 mg PO TID [facility] Last Admin: 10/28/17 16:51 Dose: 20 mg Spironolactone (Aldactone) 25 mg PO DAILY [facility] Last Admin: 10/28/17 08:22 Dose: 25 mg - Labs Labs: 10/28/17 04:20 10/28/17 04:20 PT 18.0 Seconds (9.8-13.1) H 10/26/17 12:30 INR 1.6 (0.9-1.2) H 10/26/17 12:30 APTT 34.4 Seconds (25.6-37.1) 10/26/17 12:30 - Constitutional Appears: Well - Head Exam Head Exam: ATRAUMATIC, NORMAL INSPECTION, NORMOCEPHALIC - Eye Exam Eye Exam: EOMI, Normal appearance, PERRL Pupil Exam: NORMAL ACCOMODATION, PERRL - ENT Exam ENT Exam: Mucous Membranes Moist, Normal Exam - Neck Exam Neck Exam: Full ROM, Normal Inspection. absent: Lymphadenopathy - Respiratory Exam Respiratory Exam: Clear to Ausculation Bilateral, Rales, NORMAL BREATHING PATTERN - Cardiovascular Exam Cardiovascular Exam: Irregular Rhythm, RRR, +S1, +S2, Murmur - GI/Abdominal Exam GI & Abdominal Exam: Soft, Normal Bowel Sounds. absent: Tenderness - Extremities Exam Extremities Exam: Full ROM, Normal Capillary Refill, Normal Inspection. absent : Joint Swelling, Pedal Edema - Back Exam Back Exam: NORMAL INSPECTION - Neurological Exam Neurological Exam: Alert, Awake - Psychiatric Exam Psychiatric exam: Depressed, Flat Affect - Skin Skin Exam: Dry, Intact, Normal Color, Warm Assessment and Plan (1) A-fib Assessment & Plan: rate controlled on BB and CCB on eliquis 2.5mg po bid Status: Chronic (2) Acute on chronic diastolic (congestive) heart failure Assessment & Plan: improving with lasix and aldactone cont BB Status: Chronic (3) Acute respiratory failure with hypoxia Status: Acute (4) Altered mental status Status: Acute (5) HTN (hypertension) Status: Deleted (6) Seizure disorder Status: Chronic (7) CANDELARIA (acute kidney injury) Status: Acute (8) Encephalopathy Status: Acute (9) Hypothermia Status: Deleted (10) Pleural effusion, bilateral Status: Acute (11) Supratherapeutic international normalized ratio (INR) Status: Acute (12) Acute decompensated heart failure Status: Acute (13) Atrial fibrillation with RVR Status: Acute
--- NOTE | 2017-10-29 01:24 | CP.PCM.PN ---
<Arlene Cole Mary - Last Filed: 10/29/17 01:20> Subjective - Date & Time of Evaluation Date of Evaluation: 10/28/17 Time of Evaluation: 21:55 - Subjective Subjective: He is improving slowly and steadily. He is interactive and has no fever. He is responsive with one word and is smiling. Increase Lamictal to 100 mg Q 12 hrs as he is receiving Lamictal safely at 50 mg Q 12 hrs for 14 days Objective - Vital Signs/Intake and Output Vital Signs (last 24 hours): Temp Pulse Resp BP Pulse Ox 98.8 F 81 22 121/76 100 10/28/17 16:00 10/29/17 00:06 10/29/17 00:00 10/28/17 23:22 10/28/17 20:54 Intake and Output: 10/28/17 10/29/17 18:59 06:59 Intake Total 1616 200 Output Total 1100 Balance 516 200 - Medications Medications: Current Medications Acetaminophen (Tylenol 650mg/20.3ml Solution Ud) 650 mg PO Q6 PRN PRN Reason: Temperature Last Admin: 10/25/17 16:42 Dose: 650 mg Apixaban (Eliquis) 2.5 mg PO BID [facility] PRN Reason: Protocol Last Admin: 10/28/17 18:33 Dose: Not Given Cholecalciferol (Vitamin D) 5,000 iu PO DAILY [facility] Last Admin: 10/28/17 08:21 Dose: 5,000 intlu Diltiazem HCl (Cardizem) 30 mg PO 0300,0900,1500,2100 [facility] Last Admin: 10/28/17 20:54 Dose: 30 mg Dimethicone (Proshield Plus Skin Protectant) 1 applic TOP Q8 [facility] Last Admin: 10/28/17 18:34 Dose: Not Given Ferrous Gluconate (Fergon) 324 mg PO DAILY [facility] Last Admin: 10/28/17 08:22 Dose: 324 mg Furosemide (Lasix) 40 mg IV BID [facility] Last Admin: 10/28/17 16:47 Dose: 40 mg Acyclovir 500 mg/ Sodium (Chloride) 100 mls @ 100 mls/hr IV Q8 [facility] PRN Reason: Protocol Last Admin: 10/28/17 16:51 Dose: 100 mls/hr Vancomycin HCl 1 gm/ Sodium (Chloride) 250 mls @ 250 mls/hr IVPB Q48H [facility] PRN Reason: Protocol Last Admin: 10/27/17 13:26 Dose: 250 mls/hr Lactobacillus Acidophilus (Bacid Acidophilus) 1 cap PO BID [facility] Last Admin: 10/28/17 16:45 Dose: 1 cap Lamotrigine (Lamictal) 50 mg PO Q12 [facility] Last Admin: 10/28/17 20:54 Dose: 50 mg Metoprolol Tartrate (Lopressor) 5 mg IVP Q6 [facility] Last Admin: 10/28/17 23:22 Dose: 5 mg Sildenafil Citrate (Revatio) 20 mg PO TID [facility] Last Admin: 10/28/17 16:51 Dose: 20 mg Spironolactone (Aldactone) 25 mg PO DAILY [facility] Last Admin: 10/28/17 08:22 Dose: 25 mg - Labs Labs: 10/28/17 04:20 10/28/17 04:20 PT 18.0 Seconds (9.8-13.1) H 10/26/17 12:30 INR 1.6 (0.9-1.2) H 10/26/17 12:30 APTT 34.4 Seconds (25.6-37.1) 10/26/17 12:30 Assessment and Plan (1) CANDELARIA (acute kidney injury) Status: Acute (2) Acute respiratory failure Status: Acute (3) Altered mental status Status: Acute (4) Pleural effusion, bilateral Status: Acute (5) Pneumonia Status: Acute (6) Seizure disorder Status: Suspected (7) Encephalopathy Status: Acute <Abhi Escamilla - Last Filed: 10/29/17 10:13> Objective - Vital Signs/Intake and Output Vital Signs (last 24 hours): Temp Pulse Resp BP Pulse Ox 98.7 F 99 H 12 142/70 100 10/29/17 04:00 10/29/17 08:24 10/29/17 08:36 10/29/17 08:25 10/29/17 04:00 Intake and Output: 10/29/17 10/29/17 06:59 18:59 Intake Total 500 Output Total 1550 Balance -1050 - Medications Medications: Current Medications Acetaminophen (Tylenol 650mg/20.3ml Solution Ud) 650 mg PO Q6 PRN PRN Reason: Temperature Last Admin: 10/25/17 16:42 Dose: 650 mg Apixaban (Eliquis) 2.5 mg PO BID [facility] PRN Reason: Protocol Last Admin: 10/28/17 18:33 Dose: Not Given Cholecalciferol (Vitamin D) 5,000 iu PO DAILY [facility] Last Admin: 10/29/17 08:26 Dose: 5,000 intlu Diltiazem HCl (Cardizem) 30 mg PO 0300,0900,1500,2100 [facility] Last Admin: 10/29/17 08:24 Dose: 30 mg Dimethicone (Proshield Plus Skin Protectant) 1 applic TOP Q8 [facility] Last Admin: 10/29/17 08:27 Dose: 1 applic Ferrous Gluconate (Fergon) 324 mg PO DAILY [facility] Last Admin: 10/29/17 08:24 Dose: 324 mg Furosemide (Lasix) 40 mg IV BID [facility] Last Admin: 10/29/17 08:25 Dose: 40 mg Acyclovir 500 mg/ Sodium (Chloride) 100 mls @ 100 mls/hr IV Q8 [facility] PRN Reason: Protocol Last Admin: 10/29/17 01:43 Dose: 100 mls/hr Vancomycin HCl 1 gm/ Sodium (Chloride) 250 mls @ 250 mls/hr IVPB Q48H [facility] PRN Reason: Protocol Last Admin: 10/27/17 13:26 Dose: 250 mls/hr Lactobacillus Acidophilus (Bacid Acidophilus) 1 cap PO BID [facility] Last Admin: 10/29/17 08:27 Dose: 1 cap Lamotrigine (Lamictal) 100 mg PO DAILY [facility] Last Admin: 10/29/17 08:25 Dose: 100 mg Lamotrigine (Lamictal) 100 mg PO Q12 [facility] Metoprolol Tartrate (Lopressor) 5 mg IVP Q6 [facility] Last Admin: 10/29/17 03:14 Dose: 5 mg Sildenafil Citrate (Revatio) 20 mg PO TID [facility] Last Admin: 10/29/17 08:24 Dose: 20 mg Spironolactone (Aldactone) 25 mg PO DAILY [facility] Last Admin: 10/29/17 08:26 Dose: 25 mg - Labs Labs: 10/29/17 06:25 10/29/17 04:20 PT 14.9 Seconds (9.8-13.1) H 10/29/17 04:20 INR 1.3 (0.9-1.2) H 10/29/17 04:20 APTT 34.4 Seconds (25.6-37.1) 10/26/17 12:30 Assessment and Plan (1) Acute respiratory failure with hypoxia Status: Acute (2) Altered mental status Status: Acute (3) Pleural effusion, bilateral Status: Acute (4) Hx of seizure disorder Status: Chronic (5) Diastolic CHF, acute on chronic Status: Acute (6) A-fib Status: Chronic (7) Encephalopathy Status: Acute (8) CANDELARIA (acute kidney injury) Status: Acute (9) Anemia Status: Chronic (10) Aortic valve vegetation Status: Acute (11) SUSAN (obstructive sleep apnea) Status: Chronic
[2017-10-29] MEDS: Acyclovir 500 MG in Sodium Chloride 0.9% 100 ML IV SCH ×3 (01:43→16:24)
[2017-10-29] MEDS: Proshield Plus GEL TOP SCH ×3 (01:43→18:03)
[2017-10-29] MEDS: Metoprolol 1 mg/ml Inj IVP SCH ×4 (03:14→21:02)
[2017-10-29 05:42] LABS: INR 1.3 (0.9-1.2); PROTHROMBIN TIME 14.9 Seconds (9.8-13.1)
[2017-10-29 05:51] LABS: BLOOD UREA NITROGEN 34 mg/dl (9-20); CALCIUM 8.1 mg/dL (8.4-10.2); GFR AFRICAN-AMERICAN > 60; GFR NON-AFRICAN AMERICAN > 60
[2017-10-29 06:43] LABS: HEMOGLOBIN 10.4 g/dL (12.0-18.0); MEAN CORPUSCULAR HEMOGLOBIN 30.3 pg (27.0-31.0); MEAN CORPUSCULAR HGB CONC 32.2 g/dL (33.0-37.0); RBC 3.44 Mil/uL (4.40-5.90); RED CELL DISTRIBUTION WIDTH 23.6 % (11.5-14.5); WHITE BLOOD COUNT 8.6 K/uL (4.8-10.8)
[2017-10-29] MEDS: Sildenafil 20 MG TAB PO SCH ×3 (08:24→16:22)
[2017-10-29] MEDS: Cholecalciferol 1,000 INTLU TAB PO SCH (08:26)
[2017-10-29] MEDS: Lactobacillus Acidophilus 500 MU Cap PO SCH ×2 (08:27→16:15)
--- NOTE | 2017-10-29 11:24 | CP.PCM.PN ---
Subjective - Date & Time of Evaluation Date of Evaluation: 10/29/17 Time of Evaluation: 11:22 - Subjective Subjective: Patient is more awake Vital sign noted Blood test reviewed Physical exam Chest few rhonchi Heart no rubs Abdomen soft Extremity no edema Impression and plan CO2 was still around 34 patient to remain on Diamox for metabolic alkalosis. Status post acute kidney injury which has been recovered. On the risks of the problem as noted 77 Years old Male with Multiple medical conditions including Atrial Fibrillation (on coumadin), CHF, CVA, HTN, Peripheral Edema, Seizures, Sleep Apnea, TIA Objective - Vital Signs/Intake and Output Vital Signs (last 24 hours): Temp Pulse Resp BP Pulse Ox 98.7 F 99 H 12 142/70 100 10/29/17 04:00 10/29/17 08:24 10/29/17 08:36 10/29/17 08:25 10/29/17 04:00 Intake and Output: 10/29/17 10/29/17 06:59 18:59 Intake Total 500 Output Total 1550 Balance -1050 - Medications Medications: Current Medications Acetaminophen (Tylenol 650mg/20.3ml Solution Ud) 650 mg PO Q6 PRN PRN Reason: Temperature Last Admin: 10/25/17 16:42 Dose: 650 mg Apixaban (Eliquis) 2.5 mg PO BID [facility] PRN Reason: Protocol Last Admin: 10/28/17 18:33 Dose: Not Given Cholecalciferol (Vitamin D) 5,000 iu PO DAILY [facility] Last Admin: 10/29/17 08:26 Dose: 5,000 intlu Diltiazem HCl (Cardizem) 30 mg PO 0300,0900,1500,2100 [facility] Last Admin: 10/29/17 08:24 Dose: 30 mg Dimethicone (Proshield Plus Skin Protectant) 1 applic TOP Q8 [facility] Last Admin: 10/29/17 08:27 Dose: 1 applic Ferrous Gluconate (Fergon) 324 mg PO DAILY [facility] Last Admin: 10/29/17 08:24 Dose: 324 mg Furosemide (Lasix) 40 mg IV BID [facility] Last Admin: 10/29/17 08:25 Dose: 40 mg Acyclovir 500 mg/ Sodium (Chloride) 100 mls @ 100 mls/hr IV Q8 [facility] PRN Reason: Protocol Last Admin: 10/29/17 01:43 Dose: 100 mls/hr Vancomycin HCl 1 gm/ Sodium (Chloride) 250 mls @ 250 mls/hr IVPB Q48H [facility] PRN Reason: Protocol Last Admin: 10/27/17 13:26 Dose: 250 mls/hr Lactobacillus Acidophilus (Bacid Acidophilus) 1 cap PO BID [facility] Last Admin: 10/29/17 08:27 Dose: 1 cap Lamotrigine (Lamictal) 100 mg PO DAILY [facility] Last Admin: 10/29/17 08:25 Dose: 100 mg Lamotrigine (Lamictal) 100 mg PO Q12 [facility] Metoprolol Tartrate (Lopressor) 5 mg IVP Q6 [facility] Last Admin: 10/29/17 03:14 Dose: 5 mg Sildenafil Citrate (Revatio) 20 mg PO TID [facility] Last Admin: 10/29/17 08:24 Dose: 20 mg Spironolactone (Aldactone) 25 mg PO DAILY [facility] Last Admin: 10/29/17 08:26 Dose: 25 mg - Labs Labs: 10/29/17 06:25 10/29/17 04:20 PT 14.9 Seconds (9.8-13.1) H 10/29/17 04:20 INR 1.3 (0.9-1.2) H 10/29/17 04:20 APTT 34.4 Seconds (25.6-37.1) 10/26/17 12:30 Assessment and Plan (1) CANDELARIA (acute kidney injury) Status: Acute (2) Altered mental status Status: Acute (3) Diastolic CHF, acute on chronic Status: Acute (4) Hypernatremia Status: Acute
[2017-10-29] MEDS ORDERED: Cefepime 1 GM in Sodium Chloride 0.9% 100 ML IVPB SCH (11:45)
--- NOTE | 2017-10-29 14:02 | CP.PCM.PN ---
Subjective - Date & Time of Evaluation Date of Evaluation: 10/29/17 Time of Evaluation: 11:40 - Subjective Subjective: F/U Respiratory Failure. Awake, smiling , able to talk with single words, follows simple commands Objective - Vital Signs/Intake and Output Vital Signs (last 24 hours): Temp Pulse Resp BP Pulse Ox 98.7 F 99 H 20 142/70 100 10/29/17 04:00 10/29/17 08:24 10/29/17 13:44 10/29/17 08:25 10/29/17 04:00 Intake and Output: 10/29/17 10/29/17 06:59 18:59 Intake Total 500 Output Total 1550 Balance -1050 - Medications Medications: Current Medications Acetaminophen (Tylenol 650mg/20.3ml Solution Ud) 650 mg PO Q6 PRN PRN Reason: Temperature Last Admin: 10/25/17 16:42 Dose: 650 mg Apixaban (Eliquis) 2.5 mg PO BID [facility] PRN Reason: Protocol Last Admin: 10/28/17 18:33 Dose: Not Given Cholecalciferol (Vitamin D) 5,000 iu PO DAILY [facility] Last Admin: 10/29/17 08:26 Dose: 5,000 intlu Diltiazem HCl (Cardizem) 30 mg PO 0300,0900,1500,2100 [facility] Last Admin: 10/29/17 08:24 Dose: 30 mg Dimethicone (Proshield Plus Skin Protectant) 1 applic TOP Q8 [facility] Last Admin: 10/29/17 08:27 Dose: 1 applic Ferrous Gluconate (Fergon) 324 mg PO DAILY [facility] Last Admin: 10/29/17 08:24 Dose: 324 mg Furosemide (Lasix) 40 mg IV BID [facility] Last Admin: 10/29/17 08:25 Dose: 40 mg Acyclovir 500 mg/ Sodium (Chloride) 100 mls @ 100 mls/hr IV Q8 [facility] PRN Reason: Protocol Last Admin: 10/29/17 01:43 Dose: 100 mls/hr Vancomycin HCl 1 gm/ Sodium (Chloride) 250 mls @ 250 mls/hr IVPB Q48H [facility] PRN Reason: Protocol Last Admin: 10/27/17 13:26 Dose: 250 mls/hr Cefepime HCl 1 gm/ Sodium (Chloride) 100 mls @ 100 mls/hr IVPB Q12 [facility] PRN Reason: Protocol Lactobacillus Acidophilus (Bacid Acidophilus) 1 cap PO BID [facility] Last Admin: 10/29/17 08:27 Dose: 1 cap Lamotrigine (Lamictal) 100 mg PO DAILY [facility] Last Admin: 10/29/17 08:25 Dose: 100 mg Lamotrigine (Lamictal) 100 mg PO Q12 [facility] Metoprolol Tartrate (Lopressor) 5 mg IVP Q6 [facility] Last Admin: 10/29/17 03:14 Dose: 5 mg Sildenafil Citrate (Revatio) 20 mg PO TID [facility] Last Admin: 10/29/17 08:24 Dose: 20 mg Spironolactone (Aldactone) 25 mg PO DAILY [facility] Last Admin: 10/29/17 08:26 Dose: 25 mg - Labs Labs: 10/29/17 06:25 10/29/17 04:20 PT 14.9 Seconds (9.8-13.1) H 10/29/17 04:20 INR 1.3 (0.9-1.2) H 10/29/17 04:20 APTT 34.4 Seconds (25.6-37.1) 10/26/17 12:30 - Constitutional Appears: Chronically Ill - Head Exam Head Exam: NORMAL INSPECTION - Eye Exam Eye Exam: PERRL - ENT Exam ENT Exam: Normal Exam - Neck Exam Neck Exam: Normal Inspection - Respiratory Exam Respiratory Exam: Decreased Breath Sounds (at bases) - Cardiovascular Exam Cardiovascular Exam: Irregular Rhythm - GI/Abdominal Exam GI & Abdominal Exam: Soft, Normal Bowel Sounds - Extremities Exam Extremities Exam: Normal Inspection - Back Exam Additional comments: DTI sacrum improved. - Neurological Exam Additional comments: Follows commands, able to talk with single words, generalized weakness. - Psychiatric Exam Additional comments: Calm. - Skin Skin Exam: Warm Assessment and Plan (1) Acute respiratory failure with hypoxia Status: Acute (2) Altered mental status Status: Acute (3) Pleural effusion, bilateral Status: Acute (4) Hx of seizure disorder Status: Chronic (5) Diastolic CHF, acute on chronic Status: Acute (6) A-fib Status: Chronic (7) Encephalopathy Status: Acute (8) CANDELARIA (acute kidney injury) Status: Acute (9) Anemia Status: Chronic (10) Aortic valve vegetation Status: Acute (11) SUSAN (obstructive sleep apnea) Status: Chronic - Assessment and Plan (Free Text) Plan: CT Chest increase L pleural effusion , IR for L Thoracentesis , L Pigtail today, Neurological improvement , CANDELARIA resolved, Metabolic Alkalosis on dialysis , Patient on Vanco for treatment of Endocarditis , A Fib Heart Rate controlled , ICU Time: 38 min.
--- NOTE | 2017-10-29 15:40 | PN ---
DATE: 10/29/2017 CRITICAL CARE PROGRESS NOTE LOCATION: The patient in ICU, bed 431. TIME SPENT: 35 minutes. SUBJECTIVE: The patient is seen and evaluated at the bedside. Past medical, surgical, social history reviewed. A 77-year-old male with dementia, seizure disorder, chronic atrial fibrillation, diastolic heart failure, acute on chronic pulmonary hypertension, chronic kidney disease stage 3, bilateral pleural effusion more on the left than right, status post repeat thoracenteses, now on high-flow nasal oxygen. PHYSICAL EXAMINATION: GENERAL: Overnight, more arousable, afebrile, normotensive. This morning, alert, awake. Eyes open, able to follow simple commands. Not interactive. No distress noted. Patient's at the bedside. VITAL SIGNS: Temperature 98.7, heart rate 103, respiratory rate 24, blood pressure 132/83. Intake 3005, output 3000. Positive balance of 5 mL. Weight 159 pounds. HEAD, EYES, EARS, NOSE AND THROAT: Pupils reactive. Conjunctivae pink. Sclerae white. NECK: Gvhy-[id number] stiffness, but supple. CHEST: Bilateral breath sounds. Diminished in intensity. Fine crepitations at the base. HEART: Rhythm irregular. No audible murmur. ABDOMEN: Bowel sounds present and soft. EXTREMITIES: Pedal edema reduced. DP palpable. NEUROLOGIC: Opens eyes, smiles, but not interactive. CURRENT MEDICATIONS: Tylenol 650 q.6 p.r.n.; acyclovir 500 mg IV q.8; Eliquis 2.5 mg twice daily, now on hold for the procedure; vitamin D 5000 units p.o. daily; diltiazem 30 mg q.6 hours; Proshield one application topically q.8 hours; ferrous gluconate 325 mg by mouth daily; Lasix 40 mg IV twice daily; lactobacillus 1 capsule twice daily; Lamictal increased to 100 mg twice daily; Lopressor 5 mg IV q. 6; Revatio 20 mg p.o. three times daily; Aldactone 25 mg daily; vancomycin 750 mg daily. LABORATORY DATA: WBC 8.6, hemoglobin 10.4, hematocrit 32.3, platelet count 370. PT 14.9, INR 1.3. SMA-7: Sodium 139, potassium 4.7, chloride 104, CO2 of 31, blood urea nitrogen 34, creatinine 0.09, glucose 134, calcium 8.1, total bilirubin 0.3, AST 22, ALT 27, alkaline phosphatase 98, total protein 6.8, albumin 2.7. Microbiology: Sputum culture positive for Pseudomonas aeruginosa. Sensitive to Cipro, cefepime, gentamicin, imipenem and meropenem. CAT scan chest done on 10/28/2017: Improved aeration of the right lung with concomitant decrease in the right pleural effusion. Compressive atelectasis related to increase in size of previously identified small pleural effusion. Unremarkable thoracic aorta, no aneurysm, cardiomegaly, pleura decrease in size, complexity of right pleural effusion, increasing left pleural effusion, partially loculated. IMPRESSION: 1. Neurologic: More wakeful. History of seizure. Remains seizure free clinically. Seen by Neurology. Increased Lamictal to 100 mg q. 12. Underlying dementia. 2. Pulmonary: Bilateral pleural effusion, left more than right, status post multiple thoracentesis. CT chest showed increase in previously noted small pleural effusion on the left. Scheduled for pigtail catheter insertion. Acute on chronic diastolic heart failure. 3. Cardiac: Atrial fibrillation, rate controlled on metoprolol and Cardizem. Aldactone 25 mg daily, Lasix 20 mg intravenous q. 12. Pulmonary hypertension, on sildenafil. 4. Infectious disease: Sputum positive for Pseudomonas aeruginosa. To check with Infectious Disease for adequate coverage. 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 Vancomycin trough level 17.2. To adjust the dose to maintain level below 10. 5. Gastrointestinal: Tolerating nasogastric feeding. No further diarrhea. Stool Clostridium difficile negative. 6. Renal: Chronic kidney disease stage 3. No further electrolyte abnormalities. Renal function remains stable. On Aldactone, Lasix. 7. Endocrine: Maintain blood sugar below 100. 8. Fluids, electrolytes and nutrition: Monitor electrolytes, supplement as tolerated. 9. Deep venous thrombosis prophylaxis: Currently on Eliquis 2.5 mg q. 12, on hold for the procedure. Continue physical therapy as tolerated. Clive Buckner MD
[2017-10-29] MEDS: Cefepime 1 GM in Sodium Chloride 0.9% 100 ML IVPB SCH (21:03)
--- NOTE | 2017-10-29 23:39 | CP.PCM.PN ---
Subjective - Date & Time of Evaluation Date of Evaluation: 10/29/17 Time of Evaluation: 11:30 - Subjective Subjective: pt more awake and responsive today being cleaned by director of midwifery/staff midwife at time of evaluation n stage II sacral decub recurrent left pleural effusion - plan for tap today Objective - Vital Signs/Intake and Output Vital Signs (last 24 hours): Temp Pulse Resp BP Pulse Ox 98.3 F 104 H 22 135/79 99 10/29/17 20:00 10/29/17 22:00 10/29/17 22:00 10/29/17 22:00 10/29/17 22:00 Intake and Output: 10/29/17 10/30/17 18:59 06:59 Intake Total 300 Output Total 1000 Balance -1000 300 - Medications Medications: Current Medications Acetaminophen (Tylenol 650mg/20.3ml Solution Ud) 650 mg PO Q6 PRN PRN Reason: Temperature Last Admin: 10/25/17 16:42 Dose: 650 mg Apixaban (Eliquis) 2.5 mg PO BID [facility] PRN Reason: Protocol Last Admin: 10/28/17 18:33 Dose: Not Given Cholecalciferol (Vitamin D) 5,000 iu PO DAILY [facility] Last Admin: 10/29/17 08:26 Dose: 5,000 intlu Diltiazem HCl (Cardizem) 30 mg PO 0300,0900,1500,2100 [facility] Last Admin: 10/29/17 21:01 Dose: 30 mg Dimethicone (Proshield Plus Skin Protectant) 1 applic TOP Q8 [facility] Last Admin: 10/29/17 18:03 Dose: 1 applic Ferrous Gluconate (Fergon) 324 mg PO DAILY [facility] Last Admin: 10/29/17 08:24 Dose: 324 mg Furosemide (Lasix) 40 mg IV BID [facility] Last Admin: 10/29/17 16:29 Dose: 40 mg Acyclovir 500 mg/ Sodium (Chloride) 100 mls @ 100 mls/hr IV Q8 [facility] PRN Reason: Protocol Last Admin: 10/29/17 16:24 Dose: 100 mls/hr Vancomycin HCl 1 gm/ Sodium (Chloride) 250 mls @ 250 mls/hr IVPB Q48H [facility] PRN Reason: Protocol Last Admin: 10/29/17 14:00 Dose: 250 mls/hr Cefepime HCl 1 gm/ Sodium (Chloride) 100 mls @ 100 mls/hr IVPB Q12 [facility] PRN Reason: Protocol Last Admin: 10/29/17 21:03 Dose: 100 mls/hr Lactobacillus Acidophilus (Bacid Acidophilus) 1 cap PO BID [facility] Last Admin: 10/29/17 16:15 Dose: 1 cap Lamotrigine (Lamictal) 100 mg PO DAILY [facility] Last Admin: 10/29/17 16:17 Dose: Not Given Lamotrigine (Lamictal) 100 mg PO Q12 [facility] Last Admin: 10/29/17 21:02 Dose: 100 mg Metoprolol Tartrate (Lopressor) 5 mg IVP Q6 [facility] Last Admin: 10/29/17 21:02 Dose: 5 mg Sildenafil Citrate (Revatio) 20 mg PO TID [facility] Last Admin: 10/29/17 16:22 Dose: 20 mg Spironolactone (Aldactone) 25 mg PO DAILY [facility] Last Admin: 10/29/17 08:26 Dose: 25 mg - Labs Labs: 10/29/17 06:25 10/29/17 04:20 PT 14.9 Seconds (9.8-13.1) H 10/29/17 04:20 INR 1.3 (0.9-1.2) H 10/29/17 04:20 APTT 34.4 Seconds (25.6-37.1) 10/26/17 12:30 - Constitutional Appears: No Acute Distress, Chronically Ill - Head Exam Head Exam: ATRAUMATIC - Eye Exam Eye Exam: EOMI, PERRL Pupil Exam: NORMAL ACCOMODATION - ENT Exam ENT Exam: Mucous Membranes Moist - Neck Exam Neck Exam: Normal Inspection - Respiratory Exam Respiratory Exam: Rales - Cardiovascular Exam Cardiovascular Exam: Irregular Rhythm, +S1, +S2, Murmur - GI/Abdominal Exam GI & Abdominal Exam: Soft, Normal Bowel Sounds - Extremities Exam Extremities Exam: Normal Capillary Refill - Neurological Exam Neurological Exam: Awake - Psychiatric Exam Psychiatric exam: Depressed, Flat Affect - Skin Skin Exam: Dry, Warm Assessment and Plan (1) A-fib Assessment & Plan: with VVR on BB and CCB add PO metoprolol 50mg bid cont eliquis 2.5mg po bid Status: Chronic (2) Acute on chronic diastolic (congestive) heart failure Assessment & Plan: BNP trending down diastolic cont lasix and aldactone Status: Chronic (3) Acute respiratory failure with hypoxia Status: Acute (4) Altered mental status Status: Acute (5) HTN (hypertension) Status: Deleted (6) Seizure disorder Status: Chronic (7) CANDELARIA (acute kidney injury) Status: Acute (8) Encephalopathy Status: Acute (9) Hypothermia Status: Deleted (10) Pleural effusion, bilateral Status: Acute (11) Supratherapeutic international normalized ratio (INR) Status: Acute (12) Acute decompensated heart failure Status: Acute (13) Atrial fibrillation with RVR Status: Acute
--- NOTE | 2017-10-30 01:01 | CP.PCM.PN ---
Subjective - Date & Time of Evaluation Date of Evaluation: 10/29/17 Time of Evaluation: 22:05 - Subjective Subjective: Patient has no seizures, he is on Lamictal 100 mg Q 12 hrs. No rash was seen. Patient was less active today His Right side Pleural effusion is getting much less, as seen on CT Chest. His Left side pleural effusion is much increased. He might have a thoracocentesis in AM by [facility]. Objective - Vital Signs/Intake and Output Vital Signs (last 24 hours): Temp Pulse Resp BP Pulse Ox 98.3 F 93 H 22 135/79 99 10/29/17 20:00 10/30/17 00:10 10/29/17 22:00 10/29/17 22:00 10/29/17 22:00 Intake and Output: 10/29/17 10/30/17 18:59 06:59 Intake Total 300 Output Total 1000 Balance -1000 300 - Medications Medications: Current Medications Acetaminophen (Tylenol 650mg/20.3ml Solution Ud) 650 mg PO Q6 PRN PRN Reason: Temperature Last Admin: 10/25/17 16:42 Dose: 650 mg Apixaban (Eliquis) 2.5 mg PO BID [facility] PRN Reason: Protocol Last Admin: 10/28/17 18:33 Dose: Not Given Cholecalciferol (Vitamin D) 5,000 iu PO DAILY [facility] Last Admin: 10/29/17 08:26 Dose: 5,000 intlu Diltiazem HCl (Cardizem) 30 mg PO 0300,0900,1500,2100 [facility] Last Admin: 10/29/17 21:01 Dose: 30 mg Dimethicone (Proshield Plus Skin Protectant) 1 applic TOP Q8 [facility] Last Admin: 10/29/17 18:03 Dose: 1 applic Ferrous Gluconate (Fergon) 324 mg PO DAILY [facility] Last Admin: 10/29/17 08:24 Dose: 324 mg Furosemide (Lasix) 40 mg IV BID [facility] Last Admin: 10/29/17 16:29 Dose: 40 mg Acyclovir 500 mg/ Sodium (Chloride) 100 mls @ 100 mls/hr IV Q8 [facility] PRN Reason: Protocol Last Admin: 10/29/17 16:24 Dose: 100 mls/hr Vancomycin HCl 1 gm/ Sodium (Chloride) 250 mls @ 250 mls/hr IVPB Q48H [facility] PRN Reason: Protocol Last Admin: 10/29/17 14:00 Dose: 250 mls/hr Cefepime HCl 1 gm/ Sodium (Chloride) 100 mls @ 100 mls/hr IVPB Q12 [facility] PRN Reason: Protocol Last Admin: 10/29/17 21:03 Dose: 100 mls/hr Lactobacillus Acidophilus (Bacid Acidophilus) 1 cap PO BID [facility] Last Admin: 10/29/17 16:15 Dose: 1 cap Lamotrigine (Lamictal) 100 mg PO DAILY [facility] Last Admin: 10/29/17 16:17 Dose: Not Given Lamotrigine (Lamictal) 100 mg PO Q12 [facility] Last Admin: 10/29/17 21:02 Dose: 100 mg Metoprolol Tartrate (Lopressor) 5 mg IVP Q6 [facility] Last Admin: 10/29/17 21:02 Dose: 5 mg Sildenafil Citrate (Revatio) 20 mg PO TID [facility] Last Admin: 10/29/17 16:22 Dose: 20 mg Spironolactone (Aldactone) 25 mg PO DAILY [facility] Last Admin: 10/29/17 08:26 Dose: 25 mg - Labs Labs: 10/29/17 06:25 10/29/17 04:20 PT 14.9 Seconds (9.8-13.1) H 10/29/17 04:20 INR 1.3 (0.9-1.2) H 10/29/17 04:20 APTT 34.4 Seconds (25.6-37.1) 10/26/17 12:30 Assessment and Plan (1) CANDELARIA (acute kidney injury) Status: Acute (2) Acute respiratory failure Status: Acute (3) Altered mental status Status: Acute (4) Pleural effusion, bilateral Assessment & Plan: More accumulation on the left than the Right. A Thoracocentesi might be performed in AM. Status: Acute (5) Pneumonia Status: Acute (6) Seizure disorder Assessment & Plan: On Lamictal 100 mg Q 12 hrs. Status: Suspected (7) Encephalopathy Status: Acute
[2017-10-30] MEDS: Acyclovir 500 MG in Sodium Chloride 0.9% 100 ML IV SCH ×3 (01:05→17:34)
[2017-10-30] MEDS: Proshield Plus GEL TOP SCH ×3 (01:05→17:32)
[2017-10-30] MEDS: Metoprolol 1 mg/ml Inj IVP SCH ×3 (03:53→16:06)
[2017-10-30 05:25] LABS: HEMOGLOBIN 10.1 g/dL (12.0-18.0); MEAN CELL VOLUME 95.5 fl (80.0-94.0); MEAN CORPUSCULAR HEMOGLOBIN 29.8 pg (27.0-31.0); MEAN CORPUSCULAR HGB CONC 31.2 g/dL (33.0-37.0); RBC 3.4 Mil/uL (4.40-5.90); RED CELL DISTRIBUTION WIDTH 23.5 % (11.5-14.5); WHITE BLOOD COUNT 9.2 K/uL (4.8-10.8)
[2017-10-30 05:41] LABS: BLOOD UREA NITROGEN 32 mg/dl (9-20); CALCIUM 8.3 mg/dL (8.4-10.2); GFR AFRICAN-AMERICAN > 60; GFR NON-AFRICAN AMERICAN > 60
[2017-10-30] MEDS: Lactobacillus Acidophilus 500 MU Cap PO SCH ×2 (09:51→17:39)
[2017-10-30] MEDS: Sildenafil 20 MG TAB PO SCH ×3 (09:54→17:16)
[2017-10-30] MEDS: Cholecalciferol 1,000 INTLU TAB PO SCH (10:00)
[2017-10-30] MEDS ORDERED: Lidocaine 1% Inj (20ml) ONE (11:49)
--- NOTE | 2017-10-30 12:04 | PCM.SURG1 ---
Surgeon's Initial Post Op Note - Surgeon's Notes Surgeon: Clifford Friedman MD Aerial Installer: NONE Type of Anesthesia: Local Pre-Operative Diagnosis: Left pleural effusion, respiratory difficulty Operative Findings: US shows large left pleural effusion Post-Operative Diagnosis: Left pleural effusion Operation Performed: 8 fr pigtail drainage catheter placement left chest. Specimen/Specimens Removed: NONE Estimated Blood Loss: EBL {In ML}: 0 Blood Products Given: N/A Drains Used: No Drains Post-Op Condition: Poor Date of Surgery/Procedure: 10/30/17 Time of Surgery/Procedure: 12:00
--- NOTE | 2017-10-30 13:15 | RAD ---
PROCEDURE: CHEST RADIOGRAPH, 1 VIEW HISTORY: Status post left chest tube placement COMPARISON: Chest radiograph dated 10/26/2017 FINDINGS: LUNGS: Pulmonary vascular congestion. Bibasilar atelectasis. PLEURA: Decrease in size of left pleural effusion post pigtail chest tube placement. Grossly stable small right pleural effusion. CARDIOVASCULAR: Left subclavian access pacemaker redemonstrated. Cardiomediastinal silhouette stably enlarged. OSSEOUS STRUCTURES: Unchanged. VISUALIZED UPPER ABDOMEN: Normal. OTHER FINDINGS: New left basilar pigtail chest tube. Right upper extremity PICC redemonstrated. Enteric tube, unchanged. IMPRESSION: Decrease in size of left pleural effusion post pigtail chest tube placement. Grossly stable small right pleural effusion.
--- NOTE | 2017-10-30 13:24 | CP.PCM.PN ---
Subjective - Date & Time of Evaluation Date of Evaluation: 10/30/17 Time of Evaluation: 10:00 - Subjective Subjective: remains confused pigtail placed for left effusion no fever grew pseudomonas sputum- on cefepime Objective - Vital Signs/Intake and Output Vital Signs (last 24 hours): Temp Pulse Resp BP Pulse Ox 99 F 87 22 127/63 100 10/30/17 12:18 10/30/17 12:18 10/30/17 12:18 10/30/17 12:18 10/30/17 12:18 Intake and Output: 10/30/17 10/30/17 06:59 18:59 Intake Total 800 558 Output Total 1000 0 Balance -200 558 - Medications Medications: Current Medications Acetaminophen (Tylenol 650mg/20.3ml Solution Ud) 650 mg PO Q6 PRN PRN Reason: Temperature Last Admin: 10/25/17 16:42 Dose: 650 mg Apixaban (Eliquis) 2.5 mg PO BID [facility] PRN Reason: Protocol Last Admin: 10/28/17 18:33 Dose: Not Given Cholecalciferol (Vitamin D) 5,000 iu PO DAILY [facility] Last Admin: 10/30/17 10:00 Dose: 5,000 intlu Diltiazem HCl (Cardizem) 30 mg PO 0300,0900,1500,2100 [facility] Last Admin: 10/30/17 09:51 Dose: 30 mg Dimethicone (Proshield Plus Skin Protectant) 1 applic TOP Q8 [facility] Last Admin: 10/30/17 10:00 Dose: 1 applic Ferrous Gluconate (Fergon) 324 mg PO DAILY [facility] Last Admin: 10/30/17 09:59 Dose: 324 mg Furosemide (Lasix) 40 mg IV BID [facility] Last Admin: 10/30/17 09:53 Dose: 40 mg Acyclovir 500 mg/ Sodium (Chloride) 100 mls @ 100 mls/hr IV Q8 [facility] PRN Reason: Protocol Last Admin: 10/30/17 09:54 Dose: 100 mls/hr Vancomycin HCl 1 gm/ Sodium (Chloride) 250 mls @ 250 mls/hr IVPB Q48H [facility] PRN Reason: Protocol Last Admin: 10/29/17 14:00 Dose: 250 mls/hr Cefepime HCl 1 gm/ Sodium (Chloride) 100 mls @ 100 mls/hr IVPB Q12 [facility] PRN Reason: Protocol Last Admin: 10/29/17 21:03 Dose: 100 mls/hr Lactobacillus Acidophilus (Bacid Acidophilus) 1 cap PO BID [facility] Last Admin: 10/30/17 09:51 Dose: 1 cap Lamotrigine (Lamictal) 100 mg PO Q12 [facility] Last Admin: 10/30/17 09:53 Dose: 100 mg Metoprolol Tartrate (Lopressor) 5 mg IVP Q6 [facility] Last Admin: 10/30/17 10:23 Dose: 5 mg Sildenafil Citrate (Revatio) 20 mg PO TID [facility] Last Admin: 10/30/17 09:54 Dose: 20 mg Spironolactone (Aldactone) 25 mg PO DAILY [facility] Last Admin: 10/30/17 09:53 Dose: 25 mg - Labs Labs: 10/30/17 04:20 10/30/17 04:20 PT 14.9 Seconds (9.8-13.1) H 10/29/17 04:20 INR 1.3 (0.9-1.2) H 10/29/17 04:20 APTT 34.4 Seconds (25.6-37.1) 10/26/17 12:30 - Constitutional Appears: Non-toxic, Chronically Ill - Head Exam Head Exam: NORMOCEPHALIC - Eye Exam Eye Exam: PERRL - ENT Exam ENT Exam: Mucous Membranes Dry - Neck Exam Neck Exam: absent: Lymphadenopathy - Respiratory Exam Respiratory Exam: Decreased Breath Sounds - Cardiovascular Exam Cardiovascular Exam: REGULAR RHYTHM - GI/Abdominal Exam GI & Abdominal Exam: Distended - Rectal Exam Rectal Exam: Deferred - Exam Exam: NORMAL INSPECTION - Extremities Exam Extremities Exam: absent: Pedal Edema - Back Exam Back Exam: absent: CVA tenderness (L), CVA tenderness (R) Assessment and Plan (1) CANDELARIA (acute kidney injury) Status: Acute (2) Acute respiratory failure Status: Acute (3) Altered mental status Status: Acute (4) Diastolic CHF, acute on chronic Status: Acute (5) Pleural effusion, bilateral Status: Acute (6) Pneumonia Status: Acute (7) Aortic valve vegetation Status: Acute
[2017-10-30] MEDS: Cefepime 1 GM in Sodium Chloride 0.9% 100 ML IVPB SCH ×2 (13:32→21:28)
[2017-10-30] MEDS ORDERED: Chlorhexidine Gluconate 1 APPL/PKT TP ONE (14:36)
--- NOTE | 2017-10-30 14:41 | CP.CCUPN ---
CCU Subjective - Physician Review Subjective (Free Text): Continues to occasionally open eyes spontaneously, easily awakens to name calling, but not consistent throughout the day. Remains on 50% oxygen and 30 LPM on HFNC, on BiPAP overnight without issues, erosion over the bridge of nose is healing. No active bleeding noted, has been in A Fib at approx. 88/min. No sustained, excessive tachycardic episodes, nor any episodes of resumption back to NSR noted. Returned from IR with left chest pigtail placement, on LIS, and is now draining some clear yellow pleural fluid. Other vitals and I/O's reviewed. No fever spikes; fluid balance negative 1.2 Liters last 24H. Urine output remains vigorous with Lasix. ROS: No other pertinent negs or positives on 10+ system review. PMSFH: All other Nursing and physician documentation reviewed to date; no new pertinent info noted relevant to current medical problems. CXR: (my interp)- reviewed. films from today, yesterdays CT Chest and CXRs from 10/25, 10/18/17. Possible loculated fluid collections noted bilaterally ( my interp with PMD discussion) IMPRESSION / MAJOR PROBLEMS NOW: 1. Acute Resp ( Hypoxemic) failure 2 bilat effusions, and compressive atelectasis 2. Encephalopathy: etiology unclear, ?? metabolic vs cryptogenic seizures vs ?? CVA?? 3. Chronic A Fib, presently with controlled VR 4. r/o Cardiomyopathy vs Diastolic Dysfx CHF- non-invasive TTE shows preserved EF. 5. Azotemia, CKD III ( Bun/Cr was 36/1.5 at the time of last hospital discharge) 6. Warfarin induced-coagulopathy PLAN: 1. Monitor pigtail output, unclear if he will need further definitive chest tube placement by ThorSurg if present output does not appreciably affect CT and or CXR picture and overall oxygen requirements. 2. Try decreasing fiO2 to 40% now via HFNC. 3. Lasix/ Aldactone, Revatio, Eliquis. 4. has refused recommendations for PEG placement. 5. Hgb stable since PRBCs given on 10/23/17. 6. Ps aeruginosa found on latest sputum culture may be contamination, but otherwise remains on Cefepime. CXR and no new WBC elevation. ?? duration of Acyclovir therapy. CCU Objective - Vital Signs / Intake & Output Vital Signs (Last 4 hours): Vital Signs Temp Pulse Resp BP Pulse Ox 10/30/17 14:00 113 H 19 123/70 100 10/30/17 12:45 97.6 F 100 H 20 131/61 100 10/30/17 12:18 99 F 87 22 127/63 100 10/30/17 11:53 99.1 F 92 H 22 139/78 100 Intake and Output (Last 8hrs): Intake & Output 10/29/17 10/30/17 10/30/17 22:59 06:59 14:59 Intake Total 300 500 758 Output Total 1000 1000 0 Balance -700 -500 758 Weight 167 lb 2 oz Intake: IV 8 Intake, Piggyback 100 100 200 Oral 0 Tube Feeding 300 Free Water Flush 200 400 250 Output: Gastric Amount 0 Stomach 0 Urine 1000 1000 Urethral (Wang) 1000 1000 Other: # Bowel Movements 1 - Physical Exam Head: Positive for: Atraumatic, Normocephalic Pupils: Positive for: PERRL, Sluggish Extroacular Muscles: Positive for: EOMI Conjunctiva: Positive for: Normal. Negative for: Icteric Ears: Positive for: Normal Mouth: Positive for: Moist Mucous Membranes Pharnyx: Negative for: ERYTHEMA Neck: Positive for: Normal Range of Motion. Negative for: JVD Respiratory/Chest: Positive for: Decreased Breath Sounds, Rhonchi (upper airway rhonchi), Tachypneic. Negative for: Accessory Muscle Use, Wheezes Cardiovascular: Positive for: Irregular Rhythm, Peripheal Pulses Present, Tachycardic. Negative for: Murmurs, Normal S1, S2, Rub Abdomen: Positive for: Normal Bowel Sounds. Negative for: Tenderness, Distention, Peritoneal Signs Upper Extremity: Positive for: Edema Lower Extremity: Positive for: Edema, NORMAL PULSES. Negative for: CALF TENDERNESS, Cyanosis Neurological: Positive for: Other (withdraws to deep pain) Skin: Positive for: Warm, Dry. Negative for: Rashes Psychiatric: Positive for: Alert, Oriented x 3, Lethargic - Medications Active Medications: Active Medications Generic Name Dose Route Start Last Admin Trade Name Freq PRN Reason Stop Dose Admin Acetaminophen 650 mg 10/25/17 16:16 10/25/17 16:42 Tylenol 650mg/20.3ml Solution Ud PO 650 mg Q6 PRN Administration Temperature Apixaban 2.5 mg 10/25/17 09:00 10/28/17 18:33 Eliquis PO Not Given BID [facility] Protocol Cholecalciferol 5,000 iu 10/18/17 09:00 10/30/17 10:00 Vitamin D PO 5,000 intlu DAILY [facility] Administration Diltiazem HCl 30 mg 10/18/17 03:00 10/30/17 09:51 Cardizem PO 30 mg 0300,0900,1500,2100 Y[facility]I Administration Dimethicone 1 applic 10/23/17 09:00 10/30/17 10:00 Proshield Plus Skin Protectant TOP 1 applic Q8 YUKI Administration Ferrous Gluconate 324 mg 10/24/17 09:00 10/30/17 09:59 Fergon PO 324 mg DAILY Y[facility]I Administration Furosemide 40 mg 10/15/17 17:00 10/30/17 09:53 Lasix IV 40 mg BID YUKI Administration Acyclovir 500 mg/ Sodium 100 mls @ 100 mls/hr 10/16/17 17:00 10/30/17 09:54 Chloride IV 100 mls/hr Q8 YUKI Administration Protocol Vancomycin HCl 1 gm/ Sodium 250 mls @ 250 mls/hr 10/27/17 12:45 10/29/17 14: 00 Chloride IVPB 250 mls/hr Q48H [facility]I Administration Protocol Cefepime HCl 1 gm/ Sodium 100 mls @ 100 mls/hr 10/29/17 21:00 10/30/17 13:32 Chloride IVPB 100 mls/hr Q12 [facility]I Administration Protocol Lactobacillus Acidophilus 1 cap 10/08/17 09:00 10/30/17 09:51 Bacid Acidophilus PO 1 cap BID [facility] Administration Lamotrigine 100 mg 10/29/17 09:00 10/30/17 09:53 Lamictal PO 100 mg Q12 [facility]I Administration Metoprolol Tartrate 5 mg 10/15/17 16:28 10/30/17 10:23 Lopressor IVP 5 mg Q6 Y[facility]I Administration Sildenafil Citrate 20 mg 10/25/17 13:00 10/30/17 14:32 Revatio PO Not Given TID YUKI Spironolactone 25 mg 10/24/17 19:00 10/30/17 09:53 Aldactone PO 25 mg DAILY YUKI Administration - Patient Studies Lab Studies: Lab Studies 10/30/17 10/30/17 10/30/17 Range/Units 04:20 04:20 04:20 WBC 9.2 (4.8-10.8) K/uL RBC 3.40 L (4.40-5.90) Mil/uL Hgb 10.1 L (12.0-18.0) g/dL Hct 32.4 L (35.0-51.0) % MCV 95.5 H (80.0-94.0) fl MCH 29.8 (27.0-31.0) pg MCHC 31.2 L (33.0-37.0) g/dL RDW 23.5 H (11.5-14.5) % Plt Count 318 (130-400) K/uL Sodium 141 (132-148) mmol/l Potassium 3.8 (3.6-5.0) MMOL/L Chloride 103 (98-107) mmol/L Carbon Dioxide 32 H (22-30) mmol/L Anion Gap 10 (10-20) BUN 32 H (9-20) mg/dl Creatinine 1.0 (0.8-1.5) mg/dl Est GFR ( Amer) > 60 Est GFR (Non-Af Amer) > 60 Random Glucose 135 H (75-110) mg/dL Calcium 8.3 L (8.4-10.2) mg/dL Random Vancomycin 14.1 ug/mL Laboratory Results - last 24 hr 10/30/17 10/30/17 10/30/17 04:20 04:20 04:20 WBC 9.2 RBC 3.40 L Hgb 10.1 L Hct 32.4 L MCV 95.5 H MCH 29.8 MCHC 31.2 L RDW 23.5 H Plt Count 318 Sodium 141 Potassium 3.8 Chloride 103 Carbon Dioxide 32 H Anion Gap 10 BUN 32 H Creatinine 1.0 Est GFR ( Amer) > 60 Est GFR (Non-Af Amer) > 60 Random Glucose 135 H Calcium 8.3 L Random Vancomycin 14.1 Fingerstick Blood Sugar Results: 83 Review of Systems - Review of Systems Systems not reviewed;Unavailable: Altered Mental Status
--- NOTE | 2017-10-30 14:58 | CP.PCM.PN ---
Subjective - Date & Time of Evaluation Date of Evaluation: 10/30/17 Time of Evaluation: 10:30 - Subjective Subjective: F/U respiratory failure. Awake, follows conversation with eyes Objective - Vital Signs/Intake and Output Vital Signs (last 24 hours): Temp Pulse Resp BP Pulse Ox 97.6 F 113 H 19 123/70 100 10/30/17 12:45 10/30/17 14:00 10/30/17 14:00 10/30/17 14:00 10/30/17 14:00 Intake and Output: 10/30/17 10/30/17 06:59 18:59 Intake Total 800 758 Output Total 1000 0 Balance -200 758 - Medications Medications: Current Medications Acetaminophen (Tylenol 650mg/20.3ml Solution Ud) 650 mg PO Q6 PRN PRN Reason: Temperature Last Admin: 10/25/17 16:42 Dose: 650 mg Apixaban (Eliquis) 2.5 mg PO BID [facility] PRN Reason: Protocol Last Admin: 10/28/17 18:33 Dose: Not Given Cholecalciferol (Vitamin D) 5,000 iu PO DAILY [facility] Last Admin: 10/30/17 10:00 Dose: 5,000 intlu Diltiazem HCl (Cardizem) 30 mg PO 0300,0900,1500,2100 [facility]I Last Admin: 10/30/17 09:51 Dose: 30 mg Dimethicone (Proshield Plus Skin Protectant) 1 applic TOP Q8 [facility]I Last Admin: 10/30/17 10:00 Dose: 1 applic Ferrous Gluconate (Fergon) 324 mg PO DAILY [facility]I Last Admin: 10/30/17 09:59 Dose: 324 mg Furosemide (Lasix) 40 mg IV BID [facility] Last Admin: 10/30/17 09:53 Dose: 40 mg Acyclovir 500 mg/ Sodium (Chloride) 100 mls @ 100 mls/hr IV Q8 [facility]I PRN Reason: Protocol Last Admin: 10/30/17 09:54 Dose: 100 mls/hr Vancomycin HCl 1 gm/ Sodium (Chloride) 250 mls @ 250 mls/hr IVPB Q48H [facility] PRN Reason: Protocol Last Admin: 10/29/17 14:00 Dose: 250 mls/hr Cefepime HCl 1 gm/ Sodium (Chloride) 100 mls @ 100 mls/hr IVPB Q12 [facility] PRN Reason: Protocol Last Admin: 10/30/17 13:32 Dose: 100 mls/hr Lactobacillus Acidophilus (Bacid Acidophilus) 1 cap PO BID [facility] Last Admin: 10/30/17 09:51 Dose: 1 cap Lamotrigine (Lamictal) 100 mg PO Q12 [facility] Last Admin: 10/30/17 09:53 Dose: 100 mg Metoprolol Tartrate (Lopressor) 5 mg IVP Q6 [facility] Last Admin: 10/30/17 10:23 Dose: 5 mg Sildenafil Citrate (Revatio) 20 mg PO TID [facility] Last Admin: 10/30/17 14:32 Dose: Not Given Spironolactone (Aldactone) 25 mg PO DAILY [facility] Last Admin: 10/30/17 09:53 Dose: 25 mg - Labs Labs: 10/30/17 04:20 10/30/17 04:20 PT 14.9 Seconds (9.8-13.1) H 10/29/17 04:20 INR 1.3 (0.9-1.2) H 10/29/17 04:20 APTT 34.4 Seconds (25.6-37.1) 10/26/17 12:30 - Constitutional Appears: No Acute Distress - Head Exam Head Exam: NORMAL INSPECTION - Eye Exam Eye Exam: PERRL - ENT Exam Additional comments: Bridge of nose erythema. - Neck Exam Neck Exam: Normal Inspection - Respiratory Exam Respiratory Exam: Decreased Breath Sounds (at bases) - Cardiovascular Exam Cardiovascular Exam: Irregular Rhythm - GI/Abdominal Exam GI & Abdominal Exam: Soft, Normal Bowel Sounds - Extremities Exam Extremities Exam: Normal Inspection - Back Exam Additional comments: DTI sacrum improved. - Neurological Exam Additional comments: eyes open , generalized weakness. - Skin Skin Exam: Warm Assessment and Plan (1) Acute respiratory failure with hypoxia Status: Acute (2) Pleural effusion, bilateral Status: Acute (3) Hx of seizure disorder Status: Chronic (4) Diastolic CHF, acute on chronic Status: Acute (5) A-fib Status: Chronic (6) Encephalopathy Status: Acute (7) CANDELARIA (acute kidney injury) Status: Acute (8) Anemia Status: Chronic (9) Aortic valve vegetation Status: Acute (10) SUSAN (obstructive sleep apnea) Status: Chronic - Assessment and Plan (Free Text) Plan: Had R chest tube , yellowish draining ion the bag , on high flow O2 , attempt to decrease FIO2 , on Vanco for treatment of Aortic valve vegetation , Patient's do not agree with PEG , Sputum Pseudomona , Patient possible colonization treated with Cefepime, Heart rate stable , on Lamictal for Seizure . ICU Time: 40 min.
--- NOTE | 2017-10-30 17:20 | CP.PCM.PN ---
Subjective - Date & Time of Evaluation Date of Evaluation: 10/30/17 Time of Evaluation: 17:18 - Subjective Subjective: MS worsened in last 24 hours Objective - Vital Signs/Intake and Output Vital Signs (last 24 hours): Temp Pulse Resp BP Pulse Ox 98.6 F 125 H 22 133/81 100 10/30/17 16:00 10/30/17 16:06 10/30/17 16:00 10/30/17 17:16 10/30/17 16:00 Intake and Output: 10/30/17 10/30/17 06:59 18:59 Intake Total 800 758 Output Total 1000 0 Balance -200 758 - Medications Medications: Current Medications Acetaminophen (Tylenol 650mg/20.3ml Solution Ud) 650 mg PO Q6 PRN PRN Reason: Temperature Last Admin: 10/25/17 16:42 Dose: 650 mg Apixaban (Eliquis) 2.5 mg PO BID [facility] PRN Reason: Protocol Last Admin: 10/28/17 18:33 Dose: Not Given Apixaban (Eliquis) 2.5 mg PO BID [facility] PRN Reason: Protocol Cholecalciferol (Vitamin D) 5,000 iu PO DAILY [facility] Last Admin: 10/30/17 10:00 Dose: 5,000 intlu Diltiazem HCl (Cardizem) 30 mg PO 0300,0900,1500,2100 [facility] Last Admin: 10/30/17 16:01 Dose: 30 mg Dimethicone (Proshield Plus Skin Protectant) 1 applic TOP Q8 [facility]I Last Admin: 10/30/17 10:00 Dose: 1 applic Ferrous Gluconate (Fergon) 324 mg PO DAILY [facility] Last Admin: 10/30/17 09:59 Dose: 324 mg Acyclovir 500 mg/ Sodium (Chloride) 100 mls @ 100 mls/hr IV Q8 [facility] PRN Reason: Protocol Last Admin: 10/30/17 09:54 Dose: 100 mls/hr Vancomycin HCl 1 gm/ Sodium (Chloride) 250 mls @ 250 mls/hr IVPB Q48H [facility] PRN Reason: Protocol Last Admin: 10/29/17 14:00 Dose: 250 mls/hr Cefepime HCl 1 gm/ Sodium (Chloride) 100 mls @ 100 mls/hr IVPB Q12 [facility] PRN Reason: Protocol Last Admin: 10/30/17 13:32 Dose: 100 mls/hr Lactobacillus Acidophilus (Bacid Acidophilus) 1 cap PO BID [facility] Last Admin: 10/30/17 09:51 Dose: 1 cap Lamotrigine (Lamictal) 100 mg PO Q12 [facility] Last Admin: 10/30/17 09:53 Dose: 100 mg Sildenafil Citrate (Revatio) 20 mg PO TID [facility] Last Admin: 10/30/17 17:16 Dose: 20 mg Spironolactone (Aldactone) 25 mg PO DAILY [facility] Last Admin: 10/30/17 09:53 Dose: 25 mg - Labs Labs: 10/30/17 04:20 10/30/17 04:20 PT 14.9 Seconds (9.8-13.1) H 10/29/17 04:20 INR 1.3 (0.9-1.2) H 10/29/17 04:20 APTT 34.4 Seconds (25.6-37.1) 10/26/17 12:30 - Constitutional Appears: Older Than Stated Age, Chronically Ill - Head Exam Head Exam: ATRAUMATIC - Eye Exam Eye Exam: PERRL - ENT Exam ENT Exam: Mucous Membranes Dry, Normal Exam - Neck Exam Neck Exam: Normal Inspection - Respiratory Exam Respiratory Exam: Rales, Rhonchi - Cardiovascular Exam Cardiovascular Exam: Tachycardia, Irregular Rhythm, +S1, +S2, Murmur - GI/Abdominal Exam GI & Abdominal Exam: Soft, Normal Bowel Sounds - Extremities Exam Extremities Exam: Normal Capillary Refill - Back Exam Back Exam: NORMAL INSPECTION Additional comments: stage II ulcer - Neurological Exam Neurological Exam: Altered - Psychiatric Exam Psychiatric exam: Depressed - Skin Skin Exam: Dry, Warm Assessment and Plan (1) A-fib Status: Chronic (2) Acute on chronic diastolic (congestive) heart failure Status: Chronic (3) Acute respiratory failure with hypoxia Status: Acute (4) Altered mental status Status: Acute (5) HTN (hypertension) Status: Deleted (6) Seizure disorder Status: Chronic (7) CANDELARIA (acute kidney injury) Status: Acute (8) Encephalopathy Status: Acute (9) Hypothermia Status: Deleted (10) Pleural effusion, bilateral Status: Acute (11) Supratherapeutic international normalized ratio (INR) Status: Acute (12) Acute decompensated heart failure Status: Acute (13) Atrial fibrillation with RVR Status: Acute
[2017-10-30] MEDS ORDERED: Digoxin 500 mcg/2ml (0.5 mg/2ml) Inj IVP ONE (17:49)
[2017-10-30] MEDS: Acetaminophen 650mg/20.3ml solution UD PO PRN (18:51)
--- NOTE | 2017-10-31 00:13 | CP.PCM.PN ---
Subjective - Date & Time of Evaluation Date of Evaluation: 10/30/17 Time of Evaluation: 22:10 - Subjective Subjective: No seizures are reported. He underwent a Thoracocentesis procedure By Interventional Radiology installing a left side chest tube to Drain his Left Pleural effusion. 500 ml of pleural effusion fluid were removed He has no skin or mucous membrane rash. Lamictal was increased to 100 mg Q 12 hrs, without any skin rash complications. Normal Vital signs. He is stable, confused less responsive, but still keep an eye to eye contact and may smile, and is able to respond to verbal stimuli. Objective - Vital Signs/Intake and Output Vital Signs (last 24 hours): Temp Pulse Resp BP Pulse Ox 100.0 F H 106 H 24 115/46 L 100 10/30/17 20:00 10/30/17 23:41 10/30/17 22:00 10/30/17 22:00 10/30/17 22:00 Intake and Output: 10/30/17 10/31/17 18:59 06:59 Intake Total 1362 486 Output Total 1100 500 Balance 262 -14 - Medications Medications: Current Medications Acetaminophen (Tylenol 650mg/20.3ml Solution Ud) 650 mg PO Q6 PRN PRN Reason: Temperature Last Admin: 10/30/17 18:51 Dose: 650 mg Apixaban (Eliquis) 2.5 mg PO BID [facility] PRN Reason: Protocol Last Admin: 10/28/17 18:33 Dose: Not Given Apixaban (Eliquis) 2.5 mg PO BID [facility]I PRN Reason: Protocol Last Admin: 10/30/17 18:41 Dose: 2.5 mg Cholecalciferol (Vitamin D) 5,000 iu PO DAILY [facility] Last Admin: 10/30/17 10:00 Dose: 5,000 intlu Diltiazem HCl (Cardizem) 30 mg PO 0300,0900,1500,2100 [facility] Last Admin: 10/30/17 21:26 Dose: 30 mg Dimethicone (Proshield Plus Skin Protectant) 1 applic TOP Q8 [facility]I Last Admin: 10/30/17 17:32 Dose: 1 applic Ferrous Gluconate (Fergon) 324 mg PO DAILY [facility] Last Admin: 10/30/17 09:59 Dose: 324 mg Acyclovir 500 mg/ Sodium (Chloride) 100 mls @ 100 mls/hr IV Q8 [facility] PRN Reason: Protocol Last Admin: 10/30/17 17:34 Dose: 100 mls/hr Vancomycin HCl 1 gm/ Sodium (Chloride) 250 mls @ 250 mls/hr IVPB Q48H [facility] PRN Reason: Protocol Last Admin: 10/29/17 14:00 Dose: 250 mls/hr Cefepime HCl 1 gm/ Sodium (Chloride) 100 mls @ 100 mls/hr IVPB Q12 [facility] PRN Reason: Protocol Last Admin: 10/30/17 21:28 Dose: 100 mls/hr Lactobacillus Acidophilus (Bacid Acidophilus) 1 cap PO BID [facility] Last Admin: 10/30/17 17:39 Dose: 1 cap Lamotrigine (Lamictal) 100 mg PO Q12 [facility] Last Admin: 10/30/17 21:28 Dose: 100 mg Sildenafil Citrate (Revatio) 20 mg PO TID [facility] Last Admin: 10/30/17 17:16 Dose: 20 mg Spironolactone (Aldactone) 25 mg PO DAILY [facility] Last Admin: 10/30/17 09:53 Dose: 25 mg - Labs Labs: 10/30/17 04:20 10/30/17 04:20 PT 14.9 Seconds (9.8-13.1) H 10/29/17 04:20 INR 1.3 (0.9-1.2) H 10/29/17 04:20 APTT 34.4 Seconds (25.6-37.1) 10/26/17 12:30 Assessment and Plan (1) CANDELARIA (acute kidney injury) Status: Acute (2) Acute respiratory failure Status: Acute (3) Altered mental status Status: Acute (4) Pleural effusion, bilateral Status: Acute (5) Pneumonia Status: Acute (6) Seizure disorder Status: Suspected (7) Encephalopathy Status: Acute
[2017-10-31] MEDS: Acyclovir 500 MG in Sodium Chloride 0.9% 100 ML IV SCH ×3 (01:00→17:56)
[2017-10-31] MEDS: Proshield Plus GEL TOP SCH ×3 (01:00→17:55)
[2017-10-31 05:35] LABS: HEMOGLOBIN 10.1 g/dL (12.0-18.0); MEAN CELL VOLUME 95.6 fl (80.0-94.0); MEAN CORPUSCULAR HEMOGLOBIN 30.3 pg (27.0-31.0); MEAN CORPUSCULAR HGB CONC 31.6 g/dL (33.0-37.0); RBC 3.34 Mil/uL (4.40-5.90); WHITE BLOOD COUNT 14.2 K/uL (4.8-10.8)
[2017-10-31 05:52] LABS: BLOOD UREA NITROGEN 36 mg/dl (9-20); CALCIUM 8.3 mg/dL (8.4-10.2); GFR AFRICAN-AMERICAN > 60; GFR NON-AFRICAN AMERICAN > 60
--- NOTE | 2017-10-31 06:48 | CP.CCUPN ---
CCU Subjective - Physician Review Subjective (Free Text): Continues to occasionally open eyes spontaneously, awakens to name calling, interactivity with confrontation and responsiveness to conversation still lacking. Remains on 50% oxygen and 30 LPM on HFNC, on BiPAP overnight without issues. No active bleeding noted, has been in A Fib, tachycardic to 150's, now approx 105/min. No episodes of resumption back to NSR noted. Lft chest pigtail placement done yesterday, on LIS, and has now drained approx 600ml clear yellow pleural fluid. Other vitals and I/O's reviewed. No fever spikes; fluid balance positive 0.4 Liters last 24H. Urine output remains vigorous with Lasix. ROS: No other pertinent negs or positives on 10+ system review. PMSFH: All other Nursing and physician documentation reviewed to date; no new pertinent info noted relevant to current medical problems. CXR: (my interp)- reviewed. films from today, yesterdays CT Chest and CXRs from today and 10/25, 10/18/17. Left pigtail intact. no PTX. Possible loculated fluid collections noted bilaterally (my interp with PMD discussion) IMPRESSION / MAJOR PROBLEMS NOW: 1. Acute Resp ( Hypoxemic) failure 2 bilat effusions, and compressive atelectasis 2. Encephalopathy: etiology unclear, ?? metabolic vs cryptogenic seizures vs ?? CVA?? 3. Chronic A Fib, presently with controlled VR 4. r/o Cardiomyopathy vs Diastolic Dysfx CHF- non-invasive TTE shows preserved EF. 5. Azotemia, CKD III ( Bun/Cr was 36/1.5 at the time of last hospital discharge) 6. Warfarin induced-coagulopathy PLAN: 1. Monitor pigtail output, unclear if he will need further definitive chest tube placement and mgmt by ThorSurg if present output does not appreciably affect CT and or CXR picture and overall oxygen requirements. 2. Try fiO2 to 40% via HFNC. 3. Lasix/ Aldactone, Revatio, Eliquis. 4. has refused recommendations for PEG placement. 5. Hgb stable since PRBCs given on 10/23/17. 6. WBC increased today; Ps aeruginosa found on latest sputum culture may be contamination, but otherwise remains on Cefepime. ?? duration of Acyclovir therapy. CCU Objective - Vital Signs / Intake & Output Vital Signs (Last 4 hours): Vital Signs Temp Pulse Resp BP Pulse Ox 10/31/17 06:00 106 H 25 H 129/63 100 10/31/17 05:16 26 H 10/31/17 04:00 98.7 F 104 H 19 145/67 96 10/31/17 03:00 115 H 29 H 137/69 100 Intake and Output (Last 8hrs): Intake & Output 10/30/17 10/30/17 10/31/17 14:59 22:59 06:59 Intake Total 758 1090 872 Output Total 600 1000 700 Balance 158 90 172 Weight 167 lb 2 oz Intake: IV 8 10 12 Intake, Piggyback 200 200 100 Tube Feeding 300 380 360 Free Water Flush 250 500 400 Output: Gastric Amount 0 0 Stomach 0 0 Drainage 500 100 Left Chest 500 100 Urine 600 500 600 Urethral (Wang) 600 500 600 Other: # Bowel Movements 1 1 - Physical Exam Head: Positive for: Atraumatic, Normocephalic Pupils: Positive for: PERRL, Sluggish Extroacular Muscles: Positive for: EOMI Conjunctiva: Positive for: Normal. Negative for: Icteric Ears: Positive for: Normal Mouth: Positive for: Moist Mucous Membranes Pharnyx: Negative for: ERYTHEMA Neck: Positive for: Normal Range of Motion. Negative for: JVD Respiratory/Chest: Positive for: Decreased Breath Sounds, Rhonchi (upper airway rhonchi), Tachypneic. Negative for: Accessory Muscle Use, Wheezes Cardiovascular: Positive for: Irregular Rhythm, Peripheal Pulses Present, Tachycardic. Negative for: Murmurs, Normal S1, S2, Rub Abdomen: Positive for: Normal Bowel Sounds. Negative for: Tenderness, Distention, Peritoneal Signs Upper Extremity: Positive for: Edema Lower Extremity: Positive for: Edema, NORMAL PULSES. Negative for: CALF TENDERNESS, Cyanosis Neurological: Positive for: Other (withdraws to deep pain) Skin: Positive for: Warm, Dry. Negative for: Rashes Psychiatric: Positive for: Alert, Oriented x 3, Lethargic - Medications Active Medications: Active Medications Generic Name Dose Route Start Last Admin Trade Name Freq PRN Reason Stop Dose Admin Acetaminophen 650 mg 10/25/17 16:16 10/30/17 18:51 Tylenol 650mg/20.3ml Solution Ud PO 650 mg Q6 PRN Administration Temperature Apixaban 2.5 mg 10/25/17 09:00 10/28/17 18:33 Eliquis PO Not Given BID YUKI Protocol Apixaban 2.5 mg 10/30/17 17:00 10/30/17 18:41 Eliquis PO 2.5 mg BID YUKI Administration Protocol Cholecalciferol 5,000 iu 10/18/17 09:00 10/30/17 10:00 Vitamin D PO 5,000 intlu DAILY YUKI Administration Diltiazem HCl 30 mg 10/18/17 03:00 10/31/17 03:00 Cardizem PO 30 mg 0300,0900,1500,2100 YUKI Administration Dimethicone 1 applic 10/23/17 09:00 10/31/17 01:00 Proshield Plus Skin Protectant TOP 1 applic Q8 YUKI Administration Ferrous Gluconate 324 mg 10/24/17 09:00 10/30/17 09:59 Fergon PO 324 mg DAILY YUKI Administration Acyclovir 500 mg/ Sodium 100 mls @ 100 mls/hr 10/16/17 17:00 10/30/17 17:34 Chloride IV 100 mls/hr Q8 YUKI Administration Protocol Vancomycin HCl 1 gm/ Sodium 250 mls @ 250 mls/hr 10/27/17 12:45 10/29/17 14: 00 Chloride IVPB 250 mls/hr Q48H YUKI Administration Protocol Cefepime HCl 1 gm/ Sodium 100 mls @ 100 mls/hr 10/29/17 21:00 10/30/17 21:28 Chloride IVPB 100 mls/hr Q12 YUKI Administration Protocol Lactobacillus Acidophilus 1 cap 10/08/17 09:00 10/30/17 17:39 Bacid Acidophilus PO 1 cap BID YUKI Administration Lamotrigine 100 mg 10/29/17 09:00 10/30/17 21:28 Lamictal PO 100 mg Q12 YUKI Administration Sildenafil Citrate 20 mg 10/25/17 13:00 10/30/17 17:16 Revatio PO 20 mg TID YUKI Administration Spironolactone 25 mg 10/24/17 19:00 10/30/17 09:53 Aldactone PO 25 mg DAILY YUKI Administration - Patient Studies Lab Studies: Lab Studies 12/21/17 12/21/17 12/21/17 Range/Units 04:40 04:40 04:40 WBC 14.2 H D (4.8-10.8) K/uL RBC 3.34 L (4.40-5.90) Mil/uL Hgb 10.1 L (12.0-18.0) g/dL Hct 31.9 L (35.0-51.0) % MCV 95.6 H (80.0-94.0) fl MCH 30.3 (27.0-31.0) pg MCHC 31.6 L (33.0-37.0) g/dL RDW 24.0 H (11.5-14.5) % Plt Count 321 (130-400) K/uL Sodium 140 (132-148) mmol/l Potassium 4.0 (3.6-5.0) MMOL/L Chloride 102 (98-107) mmol/L Carbon Dioxide 31 H (22-30) mmol/L Anion Gap 11 (10-20) BUN 36 H (9-20) mg/dl Creatinine 1.1 (0.8-1.5) mg/dl Est GFR ( Amer) > 60 Est GFR (Non-Af Amer) > 60 Random Glucose 137 H (75-110) mg/dL Calcium 8.3 L (8.4-10.2) mg/dL Random Vancomycin 9.6 ug/mL Laboratory Results - last 24 hr 10/31/17 10/31/17 10/31/17 04:40 04:40 04:40 WBC 14.2 H D RBC 3.34 L Hgb 10.1 L Hct 31.9 L MCV 95.6 H MCH 30.3 MCHC 31.6 L RDW 24.0 H Plt Count 321 Sodium 140 Potassium 4.0 Chloride 102 Carbon Dioxide 31 H Anion Gap 11 BUN 36 H Creatinine 1.1 Est GFR ( Amer) > 60 Est GFR (Non-Af Amer) > 60 Random Glucose 137 H Calcium 8.3 L Random Vancomycin 9.6 Fingerstick Blood Sugar Results: 83 Review of Systems - Review of Systems Systems not reviewed;Unavailable: Altered Mental Status
[2017-10-31] MEDS: Lactobacillus Acidophilus 500 MU Cap PO SCH ×2 (08:24→17:42)
[2017-10-31] MEDS: Cefepime 1 GM in Sodium Chloride 0.9% 100 ML IVPB SCH (08:26)
[2017-10-31] MEDS: Cholecalciferol 1,000 INTLU TAB PO SCH (08:27)
--- NOTE | 2017-10-31 08:30 | RAD ---
HISTORY: With LEFT pigtail COMPARISON: Portable chest 10/30/2017. FINDINGS: Unipolar permanent cardiac pacemaker again identified as well as right PICC, nasogastric tube and apparent left pleural drainage catheter all appear unchanged in position. LUNGS: Overall on prior aeration appears improved bilaterally with diminished airspace disease is seen at the mid inferior lung zones with limited residual patchy density remains at the left base a trace bilateral pleural effusions seen at both bases. Limited fluid is seen in the minor fissure. No pneumothorax bilaterally. CARDIOVASCULAR: Cardiac silhouette appears stable. No pulmonary vascular derangement identified. OSSEOUS STRUCTURES: No significant abnormalities. VISUALIZED UPPER ABDOMEN: Normal. OTHER FINDINGS: None. IMPRESSION: Improved airspace disease although trace bilateral pleural effusions are identified with residual left basilar airspace disease identified as well. Limited fluid is seen the minor fissure. No pneumothorax or pulmonary vascular derangement appreciated.
[2017-10-31] MEDS: Sildenafil 20 MG TAB PO SCH ×2 (10:33→15:02)
[2017-10-31] MEDS: Acetaminophen 650mg/20.3ml solution UD PO PRN (10:42)
--- NOTE | 2017-10-31 10:45 | CP.PCM.PN ---
<Yoon Garvin - Last Filed: 11/01/17 06:37> Subjective - Date & Time of Evaluation Date of Evaluation: 10/31/17 Time of Evaluation: 10:43 - Subjective Subjective: PGY2 progress note for cardiology, Dr. Castro Pt seen and examined at bedside. Per nurse, pt had low grade fever overnight. Given tylenol. Pt opens eyes to verbal stimuli. ROS unobtainable due to mental status. Objective - Vital Signs/Intake and Output Vital Signs (last 24 hours): Temp Pulse Resp BP Pulse Ox 100.0 F H 118 H 9 L 150/77 100 10/31/17 10:42 10/31/17 08:24 10/31/17 08:00 10/31/17 08:24 10/31/17 08:00 Intake and Output: 10/31/17 10/31/17 06:59 18:59 Intake Total 1358 90 Output Total 1200 Balance 158 90 - Medications Medications: Current Medications Acetaminophen (Tylenol 650mg/20.3ml Solution Ud) 650 mg PO Q6 PRN PRN Reason: Temperature Last Admin: 10/31/17 10:42 Dose: 650 mg Apixaban (Eliquis) 2.5 mg PO BID YUKI PRN Reason: Protocol Last Admin: 10/28/17 18:33 Dose: Not Given Apixaban (Eliquis) 2.5 mg PO BID YUKI PRN Reason: Protocol Last Admin: 10/31/17 08:25 Dose: 2.5 mg Cholecalciferol (Vitamin D) 5,000 iu PO DAILY YUKI Last Admin: 10/31/17 08:27 Dose: 5,000 intlu Diltiazem HCl (Cardizem) 30 mg PO 0300,0900,1500,2100 YUKI Last Admin: 10/31/17 08:24 Dose: 30 mg Dimethicone (Proshield Plus Skin Protectant) 1 applic TOP Q8 YUKI Last Admin: 10/31/17 08:26 Dose: 1 applic Ferrous Gluconate (Fergon) 324 mg PO DAILY YUKI Last Admin: 10/31/17 08:25 Dose: 324 mg Acyclovir 500 mg/ Sodium (Chloride) 100 mls @ 100 mls/hr IV Q8 YUKI PRN Reason: Protocol Last Admin: 10/31/17 09:50 Dose: 100 mls/hr Vancomycin HCl 1 gm/ Sodium (Chloride) 250 mls @ 250 mls/hr IVPB Q48H YUKI PRN Reason: Protocol Last Admin: 10/29/17 14:00 Dose: 250 mls/hr Cefepime HCl 1 gm/ Sodium (Chloride) 100 mls @ 100 mls/hr IVPB Q12 YUKI PRN Reason: Protocol Last Admin: 10/31/17 08:26 Dose: 100 mls/hr Lactobacillus Acidophilus (Bacid Acidophilus) 1 cap PO BID [facility] Last Admin: 10/31/17 08:24 Dose: 1 cap Lamotrigine (Lamictal) 100 mg PO Q12 [facility] Last Admin: 10/31/17 08:25 Dose: 100 mg Sildenafil Citrate (Revatio) 20 mg PO TID [facility] Last Admin: 10/31/17 10:33 Dose: 20 mg Spironolactone (Aldactone) 25 mg PO DAILY [facility] Last Admin: 10/31/17 08:22 Dose: 25 mg - Labs Labs: 10/31/17 04:40 10/31/17 04:40 PT 14.9 Seconds (9.8-13.1) H 10/29/17 04:20 INR 1.3 (0.9-1.2) H 10/29/17 04:20 APTT 34.4 Seconds (25.6-37.1) 10/26/17 12:30 - Constitutional Appears: Non-toxic, No Acute Distress - Head Exam Head Exam: ATRAUMATIC - ENT Exam ENT Exam: Mucous Membranes Moist - Respiratory Exam Respiratory Exam: Rhonchi. absent: Accessory Muscle Use, Clear to Ausculation Bilateral, Rales, Wheezes, Respiratory Distress - Cardiovascular Exam Cardiovascular Exam: Tachycardia, Irregular Rhythm - GI/Abdominal Exam GI & Abdominal Exam: Soft, Normal Bowel Sounds. absent: Distended, Guarding, Tenderness - Extremities Exam Extremities Exam: absent: Pedal Edema, Tenderness - Neurological Exam Neurological Exam: Awake. 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 Per nurse, asked to hold the morning dose today. 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 Drained about 600cc of yellow fluid Cont abx per ID Sputum grew pseudomonas (7) Encephalopathy Etiology is unclear Neurology is following Case will be discussed with attending, Dr. Castro <Varun Castro - Last Filed: 11/03/17 06:46> Objective - Vital Signs/Intake and Output Vital Signs (last 24 hours): Temp Pulse Resp BP Pulse Ox 98.4 F 78 22 149/75 100 11/03/17 04:00 11/03/17 06:00 11/03/17 06:00 11/03/17 06:00 11/03/17 06:00 Intake and Output: 11/02/17 11/03/17 18:59 06:59 Intake Total 1600 1070 Output Total 510 580 Balance 1090 490 - Medications Medications: Current Medications Acetaminophen (Tylenol 650mg/20.3ml Solution Ud) 650 mg PO Q6 PRN PRN Reason: Temperature Last Admin: 11/01/17 09:32 Dose: 650 mg Apixaban (Eliquis) 2.5 mg PO BID YUKI PRN Reason: Protocol Last Admin: 11/02/17 16:06 Dose: 2.5 mg Cholecalciferol (Vitamin D) 5,000 intlu PO DAILY YUKI Last Admin: 11/02/17 08:27 Dose: 5,000 intlu Collagenase (Santyl) 1 applic TOP DAILY YUKI Last Admin: 11/02/17 08:28 Dose: 1 appl Diltiazem HCl (Cardizem) 30 mg PO 0300,0900,1500,2100 YUKI Last Admin: 11/03/17 02:00 Dose: 30 mg Dimethicone (Proshield Plus Skin Protectant) 1 applic TOP Q8 YUKI Last Admin: 11/03/17 00:19 Dose: 1 applic Ferrous Gluconate (Fergon) 324 mg PO DAILY YUKI Last Admin: 11/02/17 08:27 Dose: 324 mg Furosemide (Lasix) 40 mg IVP BID YUKI Last Admin: 11/01/17 09:24 Dose: 40 mg Meropenem 500 mg/ Sodium (Chloride) 100 mls @ 100 mls/hr IVPB Q8 YUKI PRN Reason: Protocol Last Admin: 11/03/17 00:17 Dose: 100 mls/hr Metronidazole (Flagyl 500mg/100ml Ns) 100 mls @ 100 mls/hr IVPB Q8 YUKI PRN Reason: Protocol Last Admin: 11/03/17 02:00 Dose: 100 mls/hr Vancomycin HCl 1 gm/ Sodium (Chloride) 250 mls @ 166.667 mls/hr IVPB Q48H YUKI PRN Reason: Protocol Last Admin: 11/02/17 10:46 Dose: 166.667 mls/hr Lactobacillus Acidophilus (Bacid Acidophilus) 1 cap PO BID [facility] Last Admin: 11/02/17 16:06 Dose: 1 cap Lamotrigine (Lamictal) 50 mg PO Q12@0930,2130 [facility] Last Admin: 11/02/17 21:00 Dose: 50 mg Metoprolol Tartrate (Lopressor) 5 mg IVP Q6 YUKI Last Admin: 11/03/17 05:00 Dose: 5 mg Sildenafil Citrate (Revatio) 20 mg PO BID YUKI Last Admin: 11/02/17 16:07 Dose: 20 mg Spironolactone (Aldactone) 25 mg PO DAILY [facility] Last Admin: 11/02/17 08:27 Dose: 25 mg - Labs Labs: 11/03/17 05:24 11/02/17 05:30 PT 14.9 Seconds (9.8-13.1) H 10/29/17 04:20 INR 1.3 (0.9-1.2) H 10/29/17 04:20 APTT 34.4 Seconds (25.6-37.1) 10/26/17 12:30 Assessment and Plan (1) A-fib Status: Chronic (2) Acute on chronic diastolic (congestive) heart failure Status: Chronic (3) Acute respiratory failure with hypoxia Status: Acute (4) Altered mental status Status: Deleted (5) HTN (hypertension) Status: Deleted (6) Seizure disorder Status: Chronic (7) CANDELARIA (acute kidney injury) Status: Resolved (8) Encephalopathy Status: Acute (9) Hypothermia Status: Deleted (10) Pleural effusion, bilateral Status: Acute (11) Supratherapeutic international normalized ratio (INR) Status: Acute (12) Acute decompensated heart failure Status: Acute (13) Atrial fibrillation with RVR Status: Acute Attending/Attestation - Attestation I have personally seen and examined this patient.: Yes I have fully participated in the care of the patient.: Yes I have reviewed all pertinent clinical information, including history, physical exam and plan: Yes
--- NOTE | 2017-10-31 11:19 | VASCULAR ---
PROCEDURE: Date of procedure: 10/30/2017 Procedure: 1. Placement of a left chest tube with ultrasound guidance, CPT 20556 2. Ultrasound guidance for procedure, CPT 38000 Medications: 8cc 1 percent lidocaine, HISTORY: Large left pleural effusion TECHNIQUE: Following informed consent and procedure time-out, the patient's left lateral chest was marked, prepped and draped in the usual sterile fashion. Ultrasound showed a large left pleural effusion. After the skin was anesthetized with 1% lidocaine and the Pt was sedated by the anesthesiologist, a Gerhard catheter was advanced under ultrasound guidance into the pleural space. The catheter was exchanged over an 035 guidewire and tract was dilated to accommodate a 8.5 Marshallese pigtail catheter formed within the pleural space. There is return of slight serosanguinous fluid. The catheter was secured to patient's skin. A xeroform dressing was applied. The catheter was then attached to a pleurovac. Postprocedure x-ray showed a left chest tube. IMPRESSION: Placement of an 8.5 Marshallese left chest tube. There were no immediate complications.
[2017-10-31] MEDS: Meropenem 500 MG in Sodium Chloride 0.9% 100 ML IVPB SCH ×2 (13:05→17:54)
--- NOTE | 2017-10-31 16:25 | CP.PCM.PN ---
Subjective - Date & Time of Evaluation Date of Evaluation: 10/31/17 Time of Evaluation: 10:50 - Subjective Subjective: F/U Respiratory failure lethargic , not responding to verbal stimulation Objective - Vital Signs/Intake and Output Vital Signs (last 24 hours): Temp Pulse Resp BP Pulse Ox 98.4 F 94 H 28 H 114/53 L 100 10/31/17 16:00 10/31/17 16:00 10/31/17 16:00 10/31/17 16:00 10/31/17 16:00 Intake and Output: 10/31/17 10/31/17 06:59 18:59 Intake Total 1358 380 Output Total 1200 Balance 158 380 - Medications Medications: Current Medications Acetaminophen (Tylenol 650mg/20.3ml Solution Ud) 650 mg PO Q6 PRN PRN Reason: Temperature Last Admin: 10/31/17 10:42 Dose: 650 mg Apixaban (Eliquis) 2.5 mg PO BID YUKI PRN Reason: Protocol Last Admin: 10/31/17 08:25 Dose: 2.5 mg Cholecalciferol (Vitamin D) 5,000 intlu PO DAILY YUKI Last Admin: 10/31/17 08:27 Dose: 5,000 intlu Diltiazem HCl (Cardizem) 30 mg PO 0300,0900,1500,2100 YUKI Last Admin: 10/31/17 15:02 Dose: 30 mg Dimethicone (Proshield Plus Skin Protectant) 1 applic TOP Q8 YUKI Last Admin: 10/31/17 08:26 Dose: 1 applic Ferrous Gluconate (Fergon) 324 mg PO DAILY [facility] Last Admin: 10/31/17 08:25 Dose: 324 mg Acyclovir 500 mg/ Sodium (Chloride) 100 mls @ 100 mls/hr IV Q8 YUKI PRN Reason: Protocol Last Admin: 10/31/17 09:50 Dose: 100 mls/hr Vancomycin HCl 1 gm/ Sodium (Chloride) 250 mls @ 250 mls/hr IVPB Q48H YUKI PRN Reason: Protocol Last Admin: 10/31/17 12:33 Dose: 250 mls/hr Meropenem 500 mg/ Sodium (Chloride) 100 mls @ 100 mls/hr IVPB Q8 YUKI PRN Reason: Protocol Last Admin: 10/31/17 13:05 Dose: 100 mls/hr Lactobacillus Acidophilus (Bacid Acidophilus) 1 cap PO BID [facility] Last Admin: 10/31/17 08:24 Dose: 1 cap Lamotrigine (Lamictal) 100 mg PO Q12 [facility] Last Admin: 10/31/17 08:25 Dose: 100 mg Sildenafil Citrate (Revatio) 20 mg PO TID [facility] Last Admin: 10/31/17 15:02 Dose: 20 mg Spironolactone (Aldactone) 25 mg PO DAILY [facility] Last Admin: 10/31/17 08:22 Dose: 25 mg - Labs Labs: 10/31/17 04:40 10/31/17 04:40 PT 14.9 Seconds (9.8-13.1) H 10/29/17 04:20 INR 1.3 (0.9-1.2) H 10/29/17 04:20 APTT 34.4 Seconds (25.6-37.1) 10/26/17 12:30 - Constitutional Appears: Chronically Ill - Head Exam Head Exam: NORMAL INSPECTION - Eye Exam Eye Exam: PERRL - ENT Exam Additional comments: Bridge of nose erythema. - Neck Exam Neck Exam: Normal Inspection - Respiratory Exam Respiratory Exam: Decreased Breath Sounds (at bases) Additional comments: L Pigtail - Cardiovascular Exam Cardiovascular Exam: Irregular Rhythm - GI/Abdominal Exam GI & Abdominal Exam: Soft, Normal Bowel Sounds - Extremities Exam Extremities Exam: Normal Inspection - Back Exam Additional comments: DTI Sacrum improving. - Neurological Exam Additional comments: Lethargic, generalized weakness. - Psychiatric Exam Additional comments: Calm - Skin Skin Exam: Warm Assessment and Plan (1) Acute respiratory failure with hypoxia Status: Acute (2) Encephalopathy Status: Acute (3) Pleural effusion, bilateral Status: Acute (4) Diastolic CHF, acute on chronic Status: Acute (5) Hx of seizure disorder Status: Chronic (6) A-fib Status: Chronic (7) CANDELARIA (acute kidney injury) Status: Acute (8) Anemia Status: Chronic (9) Aortic valve vegetation Status: Acute (10) SUSAN (obstructive sleep apnea) Status: Chronic - Assessment and Plan (Free Text) Plan: Respiratory Failure improved DC High Flow O2 , trial of NC 5L/m , SUSAN BIPAP at night , T 100.9, wbc 14.2, sputum Pseudomona , ID DC Cefepime , begin Merren , Aortic valve vegetation on Vanco, A Fib Heart Rate 90's to 110's on Cardizem , Lopressor and Eliquis , L Pig tail 600 , CHF on Lasix , Aldactone , Pulmonary HTN on Revatio , Seizure on Lamictal, Encephalopaty unclear etiology ICU Time: 37 min.
[2017-11-01] MEDS: Metoprolol 1 mg/ml Inj IVP SCH ×5 (00:05→22:20)
[2017-11-01] MEDS: Meropenem 500 MG in Sodium Chloride 0.9% 100 ML IVPB SCH ×3 (00:06→17:03)
--- NOTE | 2017-11-01 00:36 | CP.PCM.PN ---
Subjective - Date & Time of Evaluation Date of Evaluation: 10/31/17 Time of Evaluation: 22:00 - Subjective Subjective: . The is concerned about the drowsiness and less responsiveness. He is given Lanoxin for his cardiac condition, ( Sidenafil (Viagra) for his congestion of the lung. He is known to have sleep apnea and cardiac valvular vegetations. His pleural effusion has resolved. Lamictal is reduced to 50 mg Q 12 hrs to observe the effect of raising Lamictal to 100 mg Q 12hrs. He has no reported seizures. Objective - Vital Signs/Intake and Output Vital Signs (last 24 hours): Temp Pulse Resp BP Pulse Ox 98.4 F 102 H 21 114/49 L 100 10/31/17 16:00 11/01/17 00:05 10/31/17 21:40 11/01/17 00:05 10/31/17 21:40 Intake and Output: 10/31/17 11/01/17 18:59 06:59 Intake Total 1340 Balance 1340 - Medications Medications: Current Medications Acetaminophen (Tylenol 650mg/20.3ml Solution Ud) 650 mg PO Q6 PRN PRN Reason: Temperature Last Admin: 10/31/17 10:42 Dose: 650 mg Apixaban (Eliquis) 2.5 mg PO BID YUKI PRN Reason: Protocol Last Admin: 10/31/17 17:42 Dose: 2.5 mg Cholecalciferol (Vitamin D) 5,000 intlu PO DAILY [facility] Last Admin: 10/31/17 08:27 Dose: 5,000 intlu Diltiazem HCl (Cardizem) 30 mg PO 0300,0900,1500,2100 [facility]I Last Admin: 10/31/17 21:40 Dose: 30 mg Dimethicone (Proshield Plus Skin Protectant) 1 applic TOP Q8 [facility]I Last Admin: 10/31/17 17:55 Dose: 1 applic Ferrous Gluconate (Fergon) 324 mg PO DAILY [facility] Last Admin: 10/31/17 08:25 Dose: 324 mg Furosemide (Lasix) 40 mg IVP BID [facility] Last Admin: 11/01/17 00:03 Dose: 40 mg Acyclovir 500 mg/ Sodium (Chloride) 100 mls @ 100 mls/hr IV Q8 YUKI PRN Reason: Protocol Last Admin: 12/21/17 17:56 Dose: 100 mls/hr Vancomycin HCl 1 gm/ Sodium (Chloride) 250 mls @ 250 mls/hr IVPB Q48H YUKI PRN Reason: Protocol Last Admin: 10/31/17 12:33 Dose: 250 mls/hr Meropenem 500 mg/ Sodium (Chloride) 100 mls @ 100 mls/hr IVPB Q8 YUKI PRN Reason: Protocol Last Admin: 11/01/17 00:06 Dose: 100 mls/hr Lactobacillus Acidophilus (Bacid Acidophilus) 1 cap PO BID [facility] Last Admin: 10/31/17 17:42 Dose: 1 cap Lamotrigine (Lamictal) 50 mg PO Q12@0930,2130 [facility] Last Admin: 10/31/17 21:40 Dose: 50 mg Metoprolol Tartrate (Lopressor) 5 mg IVP Q6 [facility] Last Admin: 11/01/17 00:05 Dose: 5 mg Sildenafil Citrate (Revatio) 20 mg PO TID [facility] Last Admin: 10/31/17 15:02 Dose: 20 mg Spironolactone (Aldactone) 25 mg PO DAILY [facility] Last Admin: 10/31/17 08:22 Dose: 25 mg - Labs Labs: 10/31/17 04:40 10/31/17 04:40 PT 14.9 Seconds (9.8-13.1) H 10/29/17 04:20 INR 1.3 (0.9-1.2) H 10/29/17 04:20 APTT 34.4 Seconds (25.6-37.1) 10/26/17 12:30 Assessment and Plan (1) CANDELARIA (acute kidney injury) Status: Resolved (2) Acute respiratory failure Status: Acute (3) Altered mental status Status: Deleted (4) Pleural effusion, bilateral Status: Acute (5) Pneumonia Status: Acute (6) Seizure disorder Status: Suspected (7) Encephalopathy Status: Acute
[2017-11-01] MEDS: Acetaminophen 650mg/20.3ml solution UD PO PRN ×2 (00:43→09:32)
[2017-11-01] MEDS: Acyclovir 500 MG in Sodium Chloride 0.9% 100 ML IV SCH ×2 (01:25→09:29)
[2017-11-01] MEDS: Proshield Plus GEL TOP SCH ×3 (01:31→17:04)
[2017-11-01] MEDS ORDERED: Chlorhexidine Gluconate 1 APPL/PKT TP ONE ×2 (02:14→09:49)
[2017-11-01 05:41] LABS: HEMOGLOBIN 8.7 g/dL (12.0-18.0); MEAN CORPUSCULAR HEMOGLOBIN 30.4 pg (27.0-31.0); MEAN CORPUSCULAR HGB CONC 31.7 g/dL (33.0-37.0); RBC 2.86 Mil/uL (4.40-5.90); RED CELL DISTRIBUTION WIDTH 23.7 % (11.5-14.5); WHITE BLOOD COUNT 9.3 K/uL (4.8-10.8)
[2017-11-01 06:48] LABS: BLOOD UREA NITROGEN 39 mg/dl (9-20); GFR AFRICAN-AMERICAN > 60; GFR NON-AFRICAN AMERICAN 58
--- NOTE | 2017-11-01 07:47 | RAD ---
HISTORY: chest tube COMPARISON: Portable chest 10/31/2017 4:35 a.m.. FINDINGS: Nasogastric tube and a unipolar pacemaker again evident as well as right PICC and left basilar pleural drainage catheter. LUNGS: Developing limited airspace disease noted at the right base and is likely persists in the medial left base. Trace bilateral pleural effusions are not excluded at the bases with limited fluid remaining at the minor fissure. No pneumothorax bilaterally. Patient's lower face and mandible obscure left apex. CARDIOVASCULAR: Stable cardiac silhouette. No pulmonary vascular derangement appreciated. OSSEOUS STRUCTURES: No significant abnormalities. VISUALIZED UPPER ABDOMEN: Normal. OTHER FINDINGS: None. IMPRESSION: Right basilar airspace disease appears to be developing minimally with medial basilar airspace disease unchanged at the left base. Trace bilateral pleural effusions are suggested.
[2017-11-01] MEDS: Sildenafil 20 MG TAB PO SCH ×2 (09:24→17:05)
[2017-11-01] MEDS: Cholecalciferol 1,000 INTLU TAB PO SCH (09:24)
[2017-11-01] MEDS: Lactobacillus Acidophilus 500 MU Cap PO SCH ×2 (09:31→17:54)
--- NOTE | 2017-11-01 09:56 | CP.CCUPN ---
CCU Subjective - Physician Review Subjective (Free Text): 10/01/17 16:03 The patient was Seen and examined by me at the bedside, Medical records reviewed and Management issues were discussed and formulated with the house staff. 77 Years old Male with Multiple medical conditions including Atrial Fibrillation (on coumadin), CHF, CVA, HTN, Peripheral Edema, Seizures, Sleep Apnea, TIA Who was brought by EMS along with his to the Emergency Department for AMS Per , she was told by Dr. Escamilla to come to ED for "observation" She states that he has been on antibiotics for cough for 2 days and now develop hallucination secondary to antibiotics. In the ER he was very hypothermic, lethargic but respond to basic commands CXR showing bilateral pleural effusion and bibasilar opacity Tachypnea, placed on 50% VM Blood culture drawn and Received one dose of IV Rocephin and Zithromax Admitted to the ICU for Acute hypercarbic and Hypoxemic respiratory failure and severe sepsis Chest CT scan revealed moderate bilateral pleural effusion with atelectasis PT also had Elevated INR, received TOTAL 4U FFP 09/24, Underwent Left (8 fr) pig tail placement with about 500 serious fluid drained 09/25, Underwent Right (8 fr) pig tail placement and Left CT removed Right pig tail not functioning and Patient Underwent US guided placement of a right chest tube, 8 fr today Also Underwent US guided dual lumen picc placement via the right basilic vein 10/16, Underwent STEVEN with elective cardioversion (negative for clot) 10/14, US guided left thoracentesis 10/30, Underwent 8 fr pigtail drainage catheter placement left chest. Evaluated by Speach therapy, deemed high risk for aspiration and will be re- evaluated Evaluated by PT/OT 11/01/17 12:41 Today he is more awake, and interactive, (Lamictal dose was decreased to 50 mg Q 12H) Evaluated by wound care Comfortable, NAD Clinically improving and hemodynamically stable No Vasopressors Patient on high flow O2 supplement alternating with nocturnal BIPAP Last 24H I&O 2610/640 Low grade fever this morning, but no leucocytosis A-Fib on monitor, HR controlled Tolerating tube feeding AM Labs,showing stable renal function and no leucocytosis This morning CXR; stable pulmonary parenchymal consolidation and Small B/L pleural effusion. 11/01/17 13:30 CCU Objective - Vital Signs / Intake & Output Vital Signs (Last 4 hours): Vital Signs Temp Pulse Resp BP Pulse Ox 11/01/17 09:35 90 113/44 L 11/01/17 09:32 100.2 F H 11/01/17 09:24 113/44 L 11/01/17 09:23 78 21 113/44 L 100 11/01/17 08:00 100.1 F H 85 25 H 97/48 L 100 11/01/17 06:00 74 26 H 109/41 L 100 Intake and Output (Last 8hrs): Intake & Output 10/31/17 11/01/17 11/01/17 22:59 06:59 14:59 Intake Total 1068 882 Output Total 640 Balance 1068 242 Intake: IV 8 12 Intake, Piggyback 300 200 Tube Feeding 360 270 Free Water Flush 400 400 Output: Chest Tube Drainage 190 Left Upper Posterior 190 Chest Urine 450 Urethral (Wang) 450 Other: # Bowel Movements 1 1 - Physical Exam Head: Positive for: Atraumatic, Normocephalic Pupils: Positive for: PERRL, Sluggish Extroacular Muscles: Positive for: EOMI Conjunctiva: Positive for: Normal. Negative for: Icteric Ears: Positive for: Normal Mouth: Positive for: Moist Mucous Membranes Pharnyx: Negative for: ERYTHEMA Neck: Positive for: Normal Range of Motion. Negative for: JVD Respiratory/Chest: Positive for: Decreased Breath Sounds, Rhonchi (upper airway rhonchi), Tachypneic. Negative for: Accessory Muscle Use, Wheezes Cardiovascular: Positive for: Irregular Rhythm, Peripheal Pulses Present, Tachycardic. Negative for: Murmurs, Normal S1, S2, Rub Abdomen: Positive for: Normal Bowel Sounds. Negative for: Tenderness, Distention, Peritoneal Signs Upper Extremity: Positive for: Edema Lower Extremity: Positive for: Edema, NORMAL PULSES. Negative for: CALF TENDERNESS, Cyanosis Neurological: Positive for: Other (withdraws to deep pain) Skin: Positive for: Warm, Dry. Negative for: Rashes Psychiatric: Positive for: Alert, Oriented x 3, Lethargic - Medications Active Medications: Active Medications Generic Name Dose Route Start Last Admin Trade Name Freq PRN Reason Stop Dose Admin Acetaminophen 650 mg 10/25/17 16:16 11/01/17 09:32 Tylenol 650mg/20.3ml Solution Ud PO 650 mg Q6 PRN Administration Temperature Apixaban 2.5 mg 10/30/17 17:00 11/01/17 09:26 Eliquis PO 2.5 mg BID YUKI Administration Protocol Cholecalciferol 5,000 intlu 10/18/17 09:00 11/01/17 09:24 Vitamin D PO 5,000 intlu DAILY YUKI Administration Collagenase 1 applic 11/01/17 09:00 Santyl TOP DAILY YUKI Diltiazem HCl 30 mg 10/18/17 03:00 11/01/17 09:23 Cardizem PO 30 mg 0300,0900,1500,2100 YUKI Administration Dimethicone 1 applic 10/23/17 09:00 11/01/17 09:28 Proshield Plus Skin Protectant TOP 1 applic Q8 YUKI Administration Ferrous Gluconate 324 mg 10/24/17 09:00 11/01/17 09:24 Fergon PO 324 mg DAILY YUKI Administration Furosemide 40 mg 10/31/17 23:21 11/01/17 09:24 Lasix IVP 40 mg BID YUKI Administration Acyclovir 500 mg/ Sodium 100 mls @ 100 mls/hr 10/16/17 17:00 11/01/17 09:29 Chloride IV 100 mls/hr Q8 YUKI Administration Protocol Vancomycin HCl 1 gm/ Sodium 250 mls @ 250 mls/hr 10/27/17 12:45 10/31/17 12: 33 Chloride IVPB 250 mls/hr Q48H [facility]I Administration Protocol Meropenem 500 mg/ Sodium 100 mls @ 100 mls/hr 10/31/17 12:30 11/01/17 09:27 Chloride IVPB 100 mls/hr Q8 Y[facility]I Administration Protocol Lactobacillus Acidophilus 1 cap 10/08/17 09:00 11/01/17 09:31 Bacid Acidophilus PO 1 cap BID YUKI Administration Lamotrigine 50 mg 10/31/17 21:30 11/01/17 09:25 Lamictal PO 50 mg Q12@30,0 YUKI Administration Metoprolol Tartrate 5 mg 10/31/17 23:21 11/01/17 09:35 Lopressor IVP 5 mg Q6 YUKI Administration Sildenafil Citrate 20 mg 11/01/17 09:00 11/01/17 09:24 Revatio PO 20 mg BID YUKI Administration Spironolactone 25 mg 10/24/17 19:00 11/01/17 09:25 Aldactone PO 25 mg DAILY YUKI Administration - Patient Studies Lab Studies: Microbiology Studies 10/31/17 18:38 Gram Stain - Final Sputum Lab Studies 11/01/17 11/01/17 Range/Units 04:40 04:40 WBC 9.3 (4.8-10.8) K/uL RBC 2.86 L (4.40-5.90) Mil/uL Hgb 8.7 L (12.0-18.0) g/dL Hct 27.4 L (35.0-51.0) % MCV 96.0 H (80.0-94.0) fl MCH 30.4 (27.0-31.0) pg MCHC 31.7 L (33.0-37.0) g/dL RDW 23.7 H (11.5-14.5) % Plt Count 268 (130-400) K/uL Sodium 136 (132-148) mmol/l Potassium 3.7 (3.6-5.0) MMOL/L Chloride 100 (98-107) mmol/L Carbon Dioxide 30 (22-30) mmol/L Anion Gap 10 (10-20) BUN 39 H (9-20) mg/dl Creatinine 1.2 (0.8-1.5) mg/dl Est GFR ( Amer) > 60 Est GFR (Non-Af Amer) 58 Random Glucose 147 H (75-110) mg/dL Calcium 8.0 L (8.4-10.2) mg/dL Laboratory Results - last 24 hr 11/01/17 11/01/17 04:40 04:40 WBC 9.3 RBC 2.86 L Hgb 8.7 L Hct 27.4 L MCV 96.0 H MCH 30.4 MCHC 31.7 L RDW 23.7 H Plt Count 268 Sodium 136 Potassium 3.7 Chloride 100 Carbon Dioxide 30 Anion Gap 10 BUN 39 H Creatinine 1.2 Est GFR ( Amer) > 60 Est GFR (Non-Af Amer) 58 Random Glucose 147 H Calcium 8.0 L Fingerstick Blood Sugar Results: 83 Assessment/Plan (1) Acute respiratory failure with hypoxia Current Visit: Yes Status: Acute Priority: High Comment: Acute hypercarbic and Hypoxemic respiratory failure secondary to likely aspiration pneumonia with pleural effusion in the setting of severe Respiratory muscle weakness Continue with ICU care for hemodynamic and Respiratory monitoring Successfully extubated IV Vancomycin, Meropenem and Acyclovir Gentle Diuresis with Aldactone, lasix on hold Strict I&O, negative fluid balance Aggressive pulmonary toilet, chest PT, suctioning nebulizer treatment Maintain aspiration precautions GI/DVT PPX (2) CANDELARIA (acute kidney injury) Current Visit: Yes Status: Deleted Priority: High Comment: Improved renal function. Off all nephrotoxic medications Renally adjust medication dose (3) Altered mental status Current Visit: Yes Status: Deleted Priority: High Comment: More awake, interactive Toxic/metabolic encephalopathy, multifactorial in the sitting of Acute hypercarbic and Hypoxemic respiratory failure, pneumonia, uremia , sepsis (4) Pleural effusion, bilateral Current Visit: Yes Status: Acute Priority: High Comment: corrected coagulopathy 09/24, Underwent Left pig tail placement today with about 500 serious fluid drained 09/25, Underwent Right (8 fr) pig tail placement and Left CT removed 10/01, US guided placement of a right chest tube, 8 fr 10/14, US guided left thoracentesis. 10/30, Underwent 8 fr pigtail drainage catheter placement left chest. (5) A-fib Current Visit: No Status: Chronic Priority: High Comment: Continue IV Metoprolol and cardiazem 30 mg PO Q 6H HR better Off AC for now (6) Seizure disorder Current Visit: No Status: Chronic Priority: Medium Comment: Continue LamoTRIgine [Lamictal] 25 mg BID
--- NOTE | 2017-11-01 10:30 | CP.PCM.PN ---
Subjective - Date & Time of Evaluation Date of Evaluation: 11/01/17 Time of Evaluation: 10:27 - Subjective Subjective: Patient and bed Somewhat awake intermittently. Receiving oxygen through nasal cannula Patient also on NG tube feeding Objective - Vital Signs/Intake and Output Vital Signs (last 24 hours): Temp Pulse Resp BP Pulse Ox 100.2 F H 90 21 113/44 L 100 11/01/17 09:32 11/01/17 09:35 11/01/17 09:23 11/01/17 09:35 11/01/17 09:23 Intake and Output: 11/01/17 11/01/17 06:59 18:59 Intake Total 1270 Output Total 640 Balance 630 - Medications Medications: Current Medications Acetaminophen (Tylenol 650mg/20.3ml Solution Ud) 650 mg PO Q6 PRN PRN Reason: Temperature Last Admin: 11/01/17 09:32 Dose: 650 mg Apixaban (Eliquis) 2.5 mg PO BID YUKI PRN Reason: Protocol Last Admin: 11/01/17 09:26 Dose: 2.5 mg Cholecalciferol (Vitamin D) 5,000 intlu PO DAILY YUKI Last Admin: 11/01/17 09:24 Dose: 5,000 intlu Collagenase (Santyl) 1 applic TOP DAILY [facility] Diltiazem HCl (Cardizem) 30 mg PO 0300,0900,1500,2100 Y[facility]I Last Admin: 11/01/17 09:23 Dose: 30 mg Dimethicone (Proshield Plus Skin Protectant) 1 applic TOP Q8 YUKI Last Admin: 11/01/17 09:28 Dose: 1 applic Ferrous Gluconate (Fergon) 324 mg PO DAILY YUKI Last Admin: 11/01/17 09:24 Dose: 324 mg Furosemide (Lasix) 40 mg IVP BID YUKI Last Admin: 11/01/17 09:24 Dose: 40 mg Acyclovir 500 mg/ Sodium (Chloride) 100 mls @ 100 mls/hr IV Q8 [facility]I PRN Reason: Protocol Last Admin: 11/01/17 09:29 Dose: 100 mls/hr Vancomycin HCl 1 gm/ Sodium (Chloride) 250 mls @ 250 mls/hr IVPB Q48H [facility] PRN Reason: Protocol Last Admin: 10/31/17 12:33 Dose: 250 mls/hr Meropenem 500 mg/ Sodium (Chloride) 100 mls @ 100 mls/hr IVPB Q8 [facility] PRN Reason: Protocol Last Admin: 11/01/17 09:27 Dose: 100 mls/hr Lactobacillus Acidophilus (Bacid Acidophilus) 1 cap PO BID [facility] Last Admin: 11/01/17 09:31 Dose: 1 cap Lamotrigine (Lamictal) 50 mg PO Q12@0930,2130 [facility] Last Admin: 11/01/17 09:25 Dose: 50 mg Metoprolol Tartrate (Lopressor) 5 mg IVP Q6 [facility] Last Admin: 11/01/17 09:35 Dose: 5 mg Sildenafil Citrate (Revatio) 20 mg PO BID [facility] Last Admin: 11/01/17 09:24 Dose: 20 mg Spironolactone (Aldactone) 25 mg PO DAILY [facility] Last Admin: 11/01/17 09:25 Dose: 25 mg - Labs Labs: 11/01/17 04:40 11/01/17 04:40 PT 14.9 Seconds (9.8-13.1) H 10/29/17 04:20 INR 1.3 (0.9-1.2) H 10/29/17 04:20 APTT 34.4 Seconds (25.6-37.1) 10/26/17 12:30 - Constitutional Appears: No Acute Distress - ENT Exam ENT Exam: Mucous Membranes Dry - Neck Exam Neck Exam: absent: Lymphadenopathy - Respiratory Exam Respiratory Exam: Rhonchi - Cardiovascular Exam Cardiovascular Exam: absent: JVD, Rubs - GI/Abdominal Exam GI & Abdominal Exam: Soft, Normal Bowel Sounds. absent: Guarding - Extremities Exam Extremities Exam: absent: Calf Tenderness - Back Exam Back Exam: absent: CVA tenderness (L), CVA tenderness (R) - Neurological Exam Neurological Exam: Altered - Skin Skin Exam: absent: Cyanosis Assessment and Plan (1) CANDELARIA (acute kidney injury) Assessment & Plan: Patient appeared to have rising B UN slowly but surely also rising creatinine slightly. Patient appeared to be somewhat dehydrated patient receiving 40 mg Lasix intravenous twice a day Therefore I suggest to hold Lasix for 24 hours and resume it 40 mg once a day thereafter. I continue monitoring kidney function as well the electrolyte. CO2 noted in the range of 30 without Diamox. Status: Resolved (2) Altered mental status Status: Deleted (3) Diastolic CHF, acute on chronic Status: Acute (4) Hypernatremia Status: Acute
[2017-11-01] MEDS: Santyl Collagenase OINTMENT TOP SCH (12:00)
--- NOTE | 2017-11-01 13:32 | CP.PCM.PN ---
Subjective - Date & Time of Evaluation Date of Evaluation: 11/01/17 Time of Evaluation: 08:00 - Subjective Subjective: remains altered bedridden febrile Pseudomonas in sputum + LBM on antibiotics- c diff ag was positive flagyl added needs palliative care Objective - Vital Signs/Intake and Output Vital Signs (last 24 hours): Temp Pulse Resp BP Pulse Ox 98.6 F 78 26 H 94/37 L 100 11/01/17 12:00 11/01/17 12:00 11/01/17 12:41 11/01/17 12:00 11/01/17 12:00 Intake and Output: 11/01/17 11/01/17 06:59 18:59 Intake Total 1270 540 Output Total 640 450 Balance 630 90 - Medications Medications: Current Medications Acetaminophen (Tylenol 650mg/20.3ml Solution Ud) 650 mg PO Q6 PRN PRN Reason: Temperature Last Admin: 11/01/17 09:32 Dose: 650 mg Apixaban (Eliquis) 2.5 mg PO BID [facility] PRN Reason: Protocol Last Admin: 11/01/17 09:26 Dose: 2.5 mg Cholecalciferol (Vitamin D) 5,000 intlu PO DAILY [facility]I Last Admin: 11/01/17 09:24 Dose: 5,000 intlu Collagenase (Santyl) 1 applic TOP DAILY [facility] Diltiazem HCl (Cardizem) 30 mg PO 0300,0900,1500,2100 [facility] Last Admin: 11/01/17 09:23 Dose: 30 mg Dimethicone (Proshield Plus Skin Protectant) 1 applic TOP Q8 [facility] Last Admin: 11/01/17 09:28 Dose: 1 applic Ferrous Gluconate (Fergon) 324 mg PO DAILY [facility] Last Admin: 11/01/17 09:24 Dose: 324 mg Furosemide (Lasix) 40 mg IVP BID [facility]I Last Admin: 11/01/17 09:24 Dose: 40 mg Vancomycin HCl 1 gm/ Sodium (Chloride) 250 mls @ 250 mls/hr IVPB Q48H [facility] PRN Reason: Protocol Last Admin: 10/31/17 12:33 Dose: 250 mls/hr Meropenem 500 mg/ Sodium (Chloride) 100 mls @ 100 mls/hr IVPB Q8 [facility] PRN Reason: Protocol Last Admin: 11/01/17 09:27 Dose: 100 mls/hr Metronidazole (Flagyl 500mg/100ml Ns) 100 mls @ 100 mls/hr IVPB Q8 [facility] PRN Reason: Protocol Lactobacillus Acidophilus (Bacid Acidophilus) 1 cap PO BID [facility] Last Admin: 11/01/17 09:31 Dose: 1 cap Lamotrigine (Lamictal) 50 mg PO Q12@0930,2130 [facility] Last Admin: 11/01/17 09:25 Dose: 50 mg Metoprolol Tartrate (Lopressor) 5 mg IVP Q6 [facility] Last Admin: 11/01/17 09:35 Dose: 5 mg Sildenafil Citrate (Revatio) 20 mg PO BID [facility] Last Admin: 11/01/17 09:24 Dose: 20 mg Spironolactone (Aldactone) 25 mg PO DAILY [facility] Last Admin: 11/01/17 09:25 Dose: 25 mg - Labs Labs: 11/01/17 04:40 11/01/17 04:40 PT 14.9 Seconds (9.8-13.1) H 10/29/17 04:20 INR 1.3 (0.9-1.2) H 10/29/17 04:20 APTT 34.4 Seconds (25.6-37.1) 10/26/17 12:30 - Constitutional Appears: Confused, Cachectic, Chronically Ill - Head Exam Head Exam: NORMOCEPHALIC - Eye Exam Eye Exam: absent: Scleral icterus - ENT Exam ENT Exam: Mucous Membranes Dry - Neck Exam Neck Exam: absent: Lymphadenopathy - Respiratory Exam Respiratory Exam: Decreased Breath Sounds - Cardiovascular Exam Cardiovascular Exam: REGULAR RHYTHM, +S1, +S2 - GI/Abdominal Exam GI & Abdominal Exam: Distended, Soft - Rectal Exam Rectal Exam: Deferred - Exam Exam: NORMAL INSPECTION - Extremities Exam Extremities Exam: absent: Pedal Edema - Back Exam Back Exam: absent: CVA tenderness (L), CVA tenderness (R) - Neurological Exam Neurological Exam: Altered - Psychiatric Exam Psychiatric exam: Depressed - Skin Skin Exam: Dry Assessment and Plan (1) CANDELARIA (acute kidney injury) Status: Resolved (2) Acute respiratory failure Status: Acute (3) Altered mental status Status: Deleted (4) Diastolic CHF, acute on chronic Status: Acute (5) Pleural effusion, bilateral Status: Acute (6) Pneumonia Status: Acute (7) Aortic valve vegetation Status: Acute - Assessment and Plan (Free Text) Assessment: poor prognosis cont vanco / merrem for endocarditis and pneumonia flagyl added' consider hospice eval
--- NOTE | 2017-11-01 16:02 | CP.PCM.PN ---
Subjective - Date & Time of Evaluation Date of Evaluation: 11/01/17 Time of Evaluation: 05:00 - Subjective Subjective: Patient seen and examined at bedside. Arousable to voice but not coherent today (improvement from yesterday as per notes) NG tube feeding ongoing. Chronically ill. Objective - Vital Signs/Intake and Output Vital Signs (last 24 hours): Temp Pulse Resp BP Pulse Ox 98.6 F 87 29 H 97/53 L 100 11/01/17 12:00 11/01/17 14:43 11/01/17 14:43 11/01/17 14:43 11/01/17 14:43 Intake and Output: 11/01/17 11/01/17 06:59 18:59 Intake Total 1270 630 Output Total 640 700 Balance 630 -70 - Medications Medications: Current Medications Acetaminophen (Tylenol 650mg/20.3ml Solution Ud) 650 mg PO Q6 PRN PRN Reason: Temperature Last Admin: 11/01/17 09:32 Dose: 650 mg Apixaban (Eliquis) 2.5 mg PO BID [facility]I PRN Reason: Protocol Last Admin: 11/01/17 09:26 Dose: 2.5 mg Cholecalciferol (Vitamin D) 5,000 intlu PO DAILY [facility]I Last Admin: 11/01/17 09:24 Dose: 5,000 intlu Collagenase (Santyl) 1 applic TOP DAILY [facility]I Last Admin: 11/01/17 12:00 Dose: 1 appl Diltiazem HCl (Cardizem) 30 mg PO 0300,0900,1500,2100 [facility] Last Admin: 11/01/17 14:43 Dose: 30 mg Dimethicone (Proshield Plus Skin Protectant) 1 applic TOP Q8 [facility] Last Admin: 11/01/17 09:28 Dose: 1 applic Ferrous Gluconate (Fergon) 324 mg PO DAILY [facility] Last Admin: 11/01/17 09:24 Dose: 324 mg Furosemide (Lasix) 40 mg IVP BID [facility]UKI Last Admin: 11/01/17 09:24 Dose: 40 mg Vancomycin HCl 1 gm/ Sodium (Chloride) 250 mls @ 250 mls/hr IVPB Q48H [facility] PRN Reason: Protocol Last Admin: 10/31/17 12:33 Dose: 250 mls/hr Meropenem 500 mg/ Sodium (Chloride) 100 mls @ 100 mls/hr IVPB Q8 [facility] PRN Reason: Protocol Last Admin: 11/01/17 09:27 Dose: 100 mls/hr Metronidazole (Flagyl 500mg/100ml Ns) 100 mls @ 100 mls/hr IVPB Q8 [facility] PRN Reason: Protocol Lactobacillus Acidophilus (Bacid Acidophilus) 1 cap PO BID [facility] Last Admin: 11/01/17 09:31 Dose: 1 cap Lamotrigine (Lamictal) 50 mg PO Q12@0930,2130 [facility] Last Admin: 11/01/17 09:25 Dose: 50 mg Metoprolol Tartrate (Lopressor) 5 mg IVP Q6 [facility] Last Admin: 11/01/17 09:35 Dose: 5 mg Sildenafil Citrate (Revatio) 20 mg PO BID [facility] Last Admin: 11/01/17 09:24 Dose: 20 mg Spironolactone (Aldactone) 25 mg PO DAILY [facility] Last Admin: 11/01/17 09:25 Dose: 25 mg - Labs Labs: 11/01/17 04:40 11/01/17 04:40 PT 14.9 Seconds (9.8-13.1) H 10/29/17 04:20 INR 1.3 (0.9-1.2) H 10/29/17 04:20 APTT 34.4 Seconds (25.6-37.1) 10/26/17 12:30 - Additional Findings Additional findings: Physical exam: Constitutional- lethargic, arousable to voice Head- NCAT, PERRL Eye- PERRL, normal accommodation ENT- normal exam, MMM. + NG tube feeding Neck- normal inspection, supple, no JVD Respiratory- CTAB, + Rhonchi, decreased breath sounds bilaterally Cardiovascular- irregular rate and rhythm, systolic murmur, no rubs or gallops GI/Abdominal- normal bowel sounds, soft, no mass, no hsm Skin- warm, dry Extremities Exam- normal capillary refill, normal inspection Neurological Exam- lethargic, unable to be examined Psych- lethargic, depressed mood. Assessment and Plan - Assessment and Plan (Free Text) Plan: 77 yo male admitted to ICU with Respiratory failure, pna, encephalopathy, acute on chronic diastolic CHF with pulmonary hypertension, critically ill with poor prognosis. (1) Acute respiratory failure with hypoxia w/ concomitant pneumonia Status: Acute - Resp status improved slightly overall s/p L pig tail drainage (600 ml), placed on 10/30 - Still very lethargic - CXR looks mildly improved, still with small bilateral pleural effusions - Dr. Winslow on consultation- Continue Vancomycin and Merrem - High Flow O2 - Prognosis poor - Dr. Rascon, cardiothoracic surgery consultation for chest tubes (2) Encephalopathy Status: Acute - Likely multifactorial - Stable - Lamictal dose decreased from 100 to 50 po q 12 hours (3) Pleural effusion, bilateral Status: Acute - Stable on CXR (4) Diastolic CHF, acute on chronic, with hx of pulmonary hypertension Status: Acute - I&O 2610/640 - Holding Lasix as per nephrology, Dr. Ye - Continue Aldactone - Continue Revatio (5) Hx of seizure disorder Status: Chronic - Lamictal 50 mg po q 12 hours - No reported seizures - Dr. Cole on consultation (6) A-fib Status: Chronic - Controlled - Continue Cardizem - Eliquis for stroke prophylaxis (7) CANDELARIA (acute kidney injury) Status: Resolved - Dr. Ye on consultation - Stable (8) Anemia Status: Chronic (9) Aortic valve vegetation Status: Acute - Continue Vanc/merrem for abx therapy as per Dr. Goldy Castro on consultation (10) SUSAN (obstructive sleep apnea) Status: Chronic (11) C diff antigen positive - Dr. Winslow on consultation - Flagyl added (12) DVT prophylaxis - Eliquis
[2017-11-01] MEDS: metroNIDAZOLE 500mg/100ml NS 100 ML IVPB SCH (17:02)
--- NOTE | 2017-11-01 23:17 | CP.PCM.PN ---
Subjective - Date & Time of Evaluation Date of Evaluation: 11/01/17 Time of Evaluation: 21:40 - Subjective Subjective: He is still lying down under Oxygen, new accumulation of pleural effusion seen by CXR IMPRESSION of CXR: Right basilar airspace disease appears to be developing minimally with medial basilar airspace disease unchanged at the left base. Trace bilateral pleural effusions are suggested. Pseudomonas is grown in sputum culture. He is responsive at times to verbal and tactile stimulation. He tries to talk. VS are seen, tachypnea at 27 per minute. Normal BP, toward the low readings. Serum Glucose values are in the normal range. BUN is 39 while Creatinine is normal. No Seizures are seen. he is on Lamictal 50 mg Q 12 hrs. Objective - Vital Signs/Intake and Output Vital Signs (last 24 hours): Temp Pulse Resp BP Pulse Ox 99.4 F 76 27 H 113/56 L 100 11/01/17 20:00 11/01/17 22:53 11/01/17 22:00 11/01/17 22:20 11/01/17 22:00 Intake and Output: 11/01/17 11/02/17 18:59 06:59 Intake Total 1250 280 Output Total 1060 Balance 190 280 - Medications Medications: Current Medications Acetaminophen (Tylenol 650mg/20.3ml Solution Ud) 650 mg PO Q6 PRN PRN Reason: Temperature Last Admin: 11/01/17 09:32 Dose: 650 mg Apixaban (Eliquis) 2.5 mg PO BID [facility] PRN Reason: Protocol Last Admin: 11/01/17 17:01 Dose: 2.5 mg Cholecalciferol (Vitamin D) 5,000 intlu PO DAILY [facility] Last Admin: 11/01/17 09:24 Dose: 5,000 intlu Collagenase (Santyl) 1 applic TOP DAILY [facility] Last Admin: 11/01/17 12:00 Dose: 1 appl Diltiazem HCl (Cardizem) 30 mg PO 0300,0900,1500,2100 [facility] Last Admin: 11/01/17 20:56 Dose: 30 mg Dimethicone (Proshield Plus Skin Protectant) 1 applic TOP Q8 [facility] Last Admin: 11/01/17 17:04 Dose: 1 applic Ferrous Gluconate (Fergon) 324 mg PO DAILY [facility] Last Admin: 11/01/17 09:24 Dose: 324 mg Furosemide (Lasix) 40 mg IVP BID [facility] Last Admin: 11/01/17 09:24 Dose: 40 mg Meropenem 500 mg/ Sodium (Chloride) 100 mls @ 100 mls/hr IVPB Q8 [facility] PRN Reason: Protocol Last Admin: 11/01/17 17:03 Dose: 100 mls/hr Metronidazole (Flagyl 500mg/100ml Ns) 100 mls @ 100 mls/hr IVPB Q8 [facility] PRN Reason: Protocol Last Admin: 11/01/17 17:02 Dose: 100 mls/hr Vancomycin HCl 1 gm/ Sodium (Chloride) 250 mls @ 166.667 mls/hr IVPB Q48H [facility] PRN Reason: Protocol Lactobacillus Acidophilus (Bacid Acidophilus) 1 cap PO BID [facility] Last Admin: 11/01/17 17:54 Dose: 1 cap Lamotrigine (Lamictal) 50 mg PO Q12@0930,2130 [facility] Last Admin: 11/01/17 20:57 Dose: 50 mg Metoprolol Tartrate (Lopressor) 5 mg IVP Q6 [facility] Last Admin: 11/01/17 22:20 Dose: 5 mg Sildenafil Citrate (Revatio) 20 mg PO BID [facility] Last Admin: 11/01/17 17:05 Dose: 20 mg Spironolactone (Aldactone) 25 mg PO DAILY [facility] Last Admin: 11/01/17 09:25 Dose: 25 mg - Labs Labs: 11/01/17 04:40 11/01/17 04:40 PT 14.9 Seconds (9.8-13.1) H 10/29/17 04:20 INR 1.3 (0.9-1.2) H 10/29/17 04:20 APTT 34.4 Seconds (25.6-37.1) 10/26/17 12:30 Assessment and Plan (1) CANDELARIA (acute kidney injury) Status: Resolved (2) Acute respiratory failure Status: Acute (3) Altered mental status Status: Deleted (4) Pleural effusion, bilateral Status: Acute (5) Pneumonia Status: Acute (6) Seizure disorder Status: Suspected (7) Encephalopathy Status: Acute
[2017-11-02] MEDS: Proshield Plus GEL TOP SCH ×3 (01:00→16:07)
[2017-11-02] MEDS: metroNIDAZOLE 500mg/100ml NS 100 ML IVPB SCH ×3 (01:00→16:05)
[2017-11-02] MEDS: Meropenem 500 MG in Sodium Chloride 0.9% 100 ML IVPB SCH ×3 (01:00→17:02)
[2017-11-02] MEDS: Metoprolol 1 mg/ml Inj IVP SCH ×4 (04:42→21:00)
[2017-11-02 06:39] LABS: HEMOGLOBIN 8.7 g/dL (12.0-18.0); MEAN CORPUSCULAR HEMOGLOBIN 30.2 pg (27.0-31.0); MEAN CORPUSCULAR HGB CONC 31.1 g/dL (33.0-37.0); RBC 2.88 Mil/uL (4.40-5.90); RED CELL DISTRIBUTION WIDTH 23.6 % (11.5-14.5); WHITE BLOOD COUNT 6.9 K/uL (4.8-10.8)
[2017-11-02 07:00] LABS: BLOOD UREA NITROGEN 41 mg/dl (9-20); CALCIUM 8.3 mg/dL (8.4-10.2); GFR AFRICAN-AMERICAN > 60; GFR NON-AFRICAN AMERICAN > 60
--- NOTE | 2017-11-02 08:16 | CP.PCM.PN ---
Subjective - Date & Time of Evaluation Date of Evaluation: 11/02/17 Time of Evaluation: 10:00 - Subjective Subjective: Covering for PMD Dr. Escamilla All chart and clinical data reviewed. Patient seen bedside. Elderly male chronically ill lying in bed , awake and alert on high Flow via NC 40 LPM / FIO2 50 % saturating bedside No acute issues overnight WBC 6.9 K Hgb 8.7, afebrile left pig tail with 360 ml output last 24 hours Objective - Vital Signs/Intake and Output Vital Signs (last 24 hours): Temp Pulse Resp BP Pulse Ox 98.5 F 84 19 125/58 L 100 11/02/17 08:00 11/02/17 08:00 11/02/17 08:02 11/02/17 08:00 11/02/17 08:00 Intake and Output: 11/02/17 11/02/17 06:59 18:59 Intake Total 1015 Output Total 450 Balance 565 - Medications Medications: Current Medications Acetaminophen (Tylenol 650mg/20.3ml Solution Ud) 650 mg PO Q6 PRN PRN Reason: Temperature Last Admin: 11/01/17 09:32 Dose: 650 mg Apixaban (Eliquis) 2.5 mg PO BID [facility] PRN Reason: Protocol Last Admin: 11/01/17 17:01 Dose: 2.5 mg Cholecalciferol (Vitamin D) 5,000 intlu PO DAILY [facility] Last Admin: 11/01/17 09:24 Dose: 5,000 intlu Collagenase (Santyl) 1 applic TOP DAILY [facility] Last Admin: 11/01/17 12:00 Dose: 1 appl Diltiazem HCl (Cardizem) 30 mg PO 0300,0900,1500,2100 [facility] Last Admin: 11/02/17 03:14 Dose: 30 mg Dimethicone (Proshield Plus Skin Protectant) 1 applic TOP Q8 [facility] Last Admin: 11/02/17 01:00 Dose: 1 applic Ferrous Gluconate (Fergon) 324 mg PO DAILY [facility] Last Admin: 11/01/17 09:24 Dose: 324 mg Furosemide (Lasix) 40 mg IVP BID [facility] Last Admin: 11/01/17 09:24 Dose: 40 mg Meropenem 500 mg/ Sodium (Chloride) 100 mls @ 100 mls/hr IVPB Q8 [facility] PRN Reason: Protocol Last Admin: 11/02/17 01:00 Dose: 100 mls/hr Metronidazole (Flagyl 500mg/100ml Ns) 100 mls @ 100 mls/hr IVPB Q8 [facility] PRN Reason: Protocol Last Admin: 11/02/17 01:00 Dose: 100 mls/hr Vancomycin HCl 1 gm/ Sodium (Chloride) 250 mls @ 166.667 mls/hr IVPB Q48H [facility] PRN Reason: Protocol Lactobacillus Acidophilus (Bacid Acidophilus) 1 cap PO BID [facility] Last Admin: 11/01/17 17:54 Dose: 1 cap Lamotrigine (Lamictal) 50 mg PO Q12@0930,2130 [facility] Last Admin: 11/01/17 20:57 Dose: 50 mg Metoprolol Tartrate (Lopressor) 5 mg IVP Q6 [facility] Last Admin: 11/02/17 04:42 Dose: 5 mg Sildenafil Citrate (Revatio) 20 mg PO BID [facility] Last Admin: 11/01/17 17:05 Dose: 20 mg Spironolactone (Aldactone) 25 mg PO DAILY [facility] Last Admin: 11/01/17 09:25 Dose: 25 mg - Labs Labs: 11/02/17 05:30 11/02/17 05:30 PT 14.9 Seconds (9.8-13.1) H 10/29/17 04:20 INR 1.3 (0.9-1.2) H 10/29/17 04:20 APTT 34.4 Seconds (25.6-37.1) 10/26/17 12:30 - Constitutional Appears: Chronically Ill - Head Exam Head Exam: ATRAUMATIC, NORMOCEPHALIC Additional comments: nasal bridge scar - Eye Exam Eye Exam: EOMI, PERRL - ENT Exam ENT Exam: Mucous Membranes Dry, Normal Exam - Neck Exam Neck Exam: Normal Inspection - Respiratory Exam Respiratory Exam: Clear to Ausculation Bilateral. absent: Wheezes, Stridor - Cardiovascular Exam Cardiovascular Exam: Irregular Rhythm. absent: JVD - GI/Abdominal Exam GI & Abdominal Exam: Soft, Normal Bowel Sounds. absent: Distended, Guarding, Tenderness, Rebound - Rectal Exam Rectal Exam: Deferred - Extremities Exam Extremities Exam: Normal Inspection. 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 As per , she feels patient had clonic movements several days ago. Patient was found to be Hypotermic with SOB associated with cough unable to bring out phlegms, also with CXr showing bilateral pleural effusions and Infiltrates . INR 5.6, PTT 68.0, PT 65.9 His hospital course has been complicated by hypoxia requiring intubation, right pig tail catheter placement and left thoracentesis for pleural effusions. He has been followed by neuro , pulmonary , ID, nephro and cardiology . He has been on broad spectrum antibiotics for Aspiration Pneumonia and has been diuresing well and developed CANDELARIA and hypernatremia. At present more awake and alert , not verbal. Tolerating High flow during the day 40 LPM FIO2 50 % andf Bipap at night.Sputum cultures positive for Pseudomonas aerugoinosa. 1. Acute respiratory failure with hypoxia and hyperecarbia etiology multi factorial -- pleural effusion , CHF, pneumonia was intubated and now extubated tolerating High Flow 40 LPM on FIO2 50 % and BIPAP at night s/p multiple thoracentheis with pig tail placement . At present left pig tail in place with 360 ml drainage last 24 hours Sputum cx positive for pseudomonas ID on consult. On meropenem and vanco IV Continue duonebs CXR showed improvement of infiltrates and minimal pleural effusion Aspiration precautions since patient failed swallow eval NGT in place with feeding Vital 1.0 with no residuals. refused peg placement pulmonary on consult following 2. Aspiration pneumonia Acute ID and pulmonary on consult s/p BAL spurtum cx positive for Pseudomonas On Vanco and meropenem 3.Altered mental status unclear etiology possibly Metabolic encephalopathy due to hypoxemia, pneumonia or related to uncontrolled seizures CT head showed no acute pathology Neurology consulted Increased lamictal dose to 50 mg Q12 seizure precautions Today more awake and alert Continue Bipap and High flow as ordered on IV antibiotics 4. Pleural effusion, bilateral s/p mulitiple thoracenthesis both right and left by IR and chest tube placement by CTS At present left pig tail in place with 260 ml output repeat CXR today showed much improvement in pleural effusions pulmonary and CTS on consult 5. Diastolic CHF, acute on chronic with pulmonary hypertension Acute cardiology on board Diuretics on hold due to worsening renal function and hypernatremia low salt diet on Sildenafil for pulmonary hypertension lasix on hold due to dehydration continue spironolactone 6. A-fib Chronic , better controlled cardiology on consult Dr. Castro s/p STEVEN and elective cardioversion on cardizem and metoprolol IV On Eliquist for anticoagulation 7.CANDELARIA (acute kidney injury) improved Nephrology on consult lasix on hold 8. Hypernatremia resolved due to dehydration low salt diet hold lasix Na 158 today. 9. HTN (hypertension) Chronic , controlled on Metoprolol, cardizem and spironolactone 10. Hx of seizure disorder Chronic neurology consulted increased lamictal dose to 50 Q12 11. Anemia of chronic disease Hgb 8.3 Monitor for now on ferrous sulfate 12.Coumadin toxicity INR was 5.6 on admission Coumadin on hold started [facility] for anticoagulation 13. SUSAN (obstructive sleep apnea) Chronic BIPAP at night 14. C diff antigen positive Dr. Winslow on consultation Flagyl added 15. Failed swallow eval NGT in place with feeding Aspiration precautions refused peg 16. Frailty/ poor ,guarded prognosis patient is full code is surrogate decision maker 17. Vitamin D deficiency on ergocalciferol 18. DVT prophylaxis Eliquis
[2017-11-02] MEDS: Sildenafil 20 MG TAB PO SCH ×2 (08:27→16:07)
[2017-11-02] MEDS: Cholecalciferol 1,000 INTLU TAB PO SCH (08:27)
[2017-11-02] MEDS: Santyl Collagenase OINTMENT TOP SCH (08:28)
[2017-11-02] MEDS: Lactobacillus Acidophilus 500 MU Cap PO SCH ×2 (08:30→16:06)
--- NOTE | 2017-11-02 10:09 | RAD ---
HISTORY: With left lateral chest pigtail COMPARISON: Chest radiograph dated 11/01/2017 FINDINGS: LUNGS: Pulmonary vascular congestion. Mild left basilar atelectasis. PLEURA: Small left pleural effusion not excluded. Trace right pleural effusion no pneumothorax apparent. CARDIOVASCULAR: Unchanged. OSSEOUS STRUCTURES: Unchanged. VISUALIZED UPPER ABDOMEN: Normal. OTHER FINDINGS: Right upper extremity PICC and enteric tubes, unchanged. IMPRESSION: No significant interval change.
--- NOTE | 2017-11-02 15:01 | CP.CCUPN ---
CCU Subjective - Physician Review Subjective (Free Text): Patient seen and examined at bedside. Events overnight reviewed. 11/02/17 14:56 CCU Objective - Vital Signs / Intake & Output Vital Signs (Last 4 hours): Vital Signs Temp Pulse Resp BP Pulse Ox 11/02/17 14:00 89 27 H 132/64 100 11/02/17 12:00 98.5 F 90 26 H 129/63 100 11/02/17 11:12 14 Intake and Output (Last 8hrs): Intake & Output 11/01/17 11/02/17 11/02/17 22:59 06:59 14:59 Intake Total 810 735 550 Output Total 210 450 Balance 600 285 550 Intake: IV 200 0 Intake, Piggyback 200 450 Oral 180 Tube Feeding 330 435 Free Water Flush 100 100 100 Output: Drainage 60 50 Left Chest 60 50 Urine 150 400 Urethral (Wang) 150 400 Other: # Bowel Movements 0 - Physical Exam Physical Exam Limitations: Positive for: Altered Mental Status Head: Positive for: Atraumatic, Normocephalic, Other (NG tube) Pupils: Positive for: PERRL, Sluggish Extroacular Muscles: Positive for: EOMI Conjunctiva: Positive for: Normal. Negative for: Icteric Ears: Positive for: Normal Mouth: Positive for: Moist Mucous Membranes Pharnyx: Negative for: ERYTHEMA Neck: Positive for: Normal Range of Motion. Negative for: JVD Respiratory/Chest: Positive for: Good Air Exchange, Respiratory Distress, Decreased Breath Sounds, Rhonchi (upper airway rhonchi), Tachypneic. Negative for: Accessory Muscle Use, Wheezes Cardiovascular: Positive for: Murmurs, Irregular Rhythm, Peripheal Pulses Present, Tachycardic. Negative for: Normal S1, S2, Rub Abdomen: Positive for: Normal Bowel Sounds. Negative for: Tenderness, Distention, Peritoneal Signs Upper Extremity: Positive for: Edema Lower Extremity: Positive for: Edema, NORMAL PULSES. Negative for: CALF TENDERNESS, Cyanosis Neurological: Positive for: Other (withdraws to deep pain) Skin: Positive for: Warm, Dry. Negative for: Rashes Psychiatric: Positive for: Alert, Lethargic. Negative for: Oriented x 3 - Medications Active Medications: Active Medications Generic Name Dose Route Start Last Admin Trade Name Freq PRN Reason Stop Dose Admin Acetaminophen 650 mg 10/25/17 16:16 11/01/17 09:32 Tylenol 650mg/20.3ml Solution Ud PO 650 mg Q6 PRN Administration Temperature Apixaban 2.5 mg 10/30/17 17:00 11/02/17 08:27 Eliquis PO 2.5 mg BID [facility] Administration Protocol Cholecalciferol 5,000 intlu 10/18/17 09:00 11/02/17 08:27 Vitamin D PO 5,000 intlu DAILY [facility] Administration Collagenase 1 applic 11/01/17 09:00 11/02/17 08:28 Santyl TOP 1 appl DAILY [facility] Administration Diltiazem HCl 30 mg 10/18/17 03:00 11/02/17 08:28 Cardizem PO 30 mg 0300,0900,1500,2100 [facility] Administration Dimethicone 1 applic 10/23/17 09:00 11/02/17 08:28 Proshield Plus Skin Protectant TOP 1 applic Q8 [facility] Administration Ferrous Gluconate 324 mg 10/24/17 09:00 11/02/17 08:27 Fergon PO 324 mg DAILY [facility] Administration Furosemide 40 mg 10/31/17 23:21 11/01/17 09:24 Lasix IVP 40 mg BID [facility] Administration Meropenem 500 mg/ Sodium 100 mls @ 100 mls/hr 10/31/17 12:30 11/02/17 08:33 Chloride IVPB 100 mls/hr Q8 [facility] Administration Protocol Metronidazole 100 mls @ 100 mls/hr 11/01/17 17:00 11/02/17 09:28 Flagyl 500mg/100ml Ns IVPB 100 mls/hr Q8 [facility] Administration Protocol Vancomycin HCl 1 gm/ Sodium 250 mls @ 166.667 mls/hr 11/02/17 09:00 11/02/17 10:46 Chloride IVPB 166.667 mls/hr Q48H [facility] Administration Protocol Lactobacillus Acidophilus 1 cap 10/08/17 09:00 11/02/17 08:30 Bacid Acidophilus PO 1 cap BID [facility] Administration Lamotrigine 50 mg 10/31/17 21:30 11/02/17 08:33 Lamictal PO 50 mg Q12@0930,2130 [facility] Administration Metoprolol Tartrate 5 mg 10/31/17 23:21 11/02/17 10:42 Lopressor IVP 5 mg Q6 [facility] Administration Sildenafil Citrate 20 mg 11/01/17 09:00 11/02/17 08:27 Revatio PO 20 mg BID [facility] Administration Spironolactone 25 mg 10/24/17 19:00 11/02/17 08:27 Aldactone PO 25 mg DAILY [facility] Administration - Patient Studies Lab Studies: Microbiology Studies 10/31/17 18:38 Gram Stain - Final Sputum Sputum Culture - Preliminary Gram Negative Vicente Lab Studies 11/02/17 11/02/17 Range/Units 05:30 05:30 WBC 6.9 (4.8-10.8) K/uL RBC 2.88 L (4.40-5.90) Mil/uL Hgb 8.7 L (12.0-18.0) g/dL Hct 27.9 L (35.0-51.0) % MCV 97.0 H (80.0-94.0) fl MCH 30.2 (27.0-31.0) pg MCHC 31.1 L (33.0-37.0) g/dL RDW 23.6 H (11.5-14.5) % Plt Count 288 (130-400) K/uL Sodium 138 (132-148) mmol/l Potassium 4.0 (3.6-5.0) MMOL/L Chloride 102 (98-107) mmol/L Carbon Dioxide 30 (22-30) mmol/L Anion Gap 10 (10-20) BUN 41 H (9-20) mg/dl Creatinine 1.1 (0.8-1.5) mg/dl Est GFR ( Amer) > 60 Est GFR (Non-Af Amer) > 60 Random Glucose 130 H (75-110) mg/dL Calcium 8.3 L (8.4-10.2) mg/dL Laboratory Results - last 24 hr 11/02/17 11/02/17 05:30 05:30 WBC 6.9 RBC 2.88 L Hgb 8.7 L Hct 27.9 L MCV 97.0 H MCH 30.2 MCHC 31.1 L RDW 23.6 H Plt Count 288 Sodium 138 Potassium 4.0 Chloride 102 Carbon Dioxide 30 Anion Gap 10 BUN 41 H Creatinine 1.1 Est GFR ( Amer) > 60 Est GFR (Non-Af Amer) > 60 Random Glucose 130 H Calcium 8.3 L Fingerstick Blood Sugar Results: 83 Assessment/Plan - Assessment and Plan (Free Text) Plan: 77 Years old Male with Pmx of Atrial Fibrillation (on coumadin), CHF, CVA, HTN, Seizure disorder, on lamicatal, h/o Sleep Apnea on bi-pap, h/o CVA right frontoparietal/TIA whos admitted to ICU for respriatory failure. -AMS: baseline as per sitting at bedside, h/o Stroks -Acute on chronic hypoxic respiratory failure:contiinue high flow to keep spo2 > 92 and EtCO2 check q4hrs, bi-pap prn Qhs -pleural effusion: chest tube output >100 ml/hr -h/o CVA: continue asa/statin -h/o seizures: continue lamicatal, avoid any other sedatives -Aspiration: Pseudomonas growth frmo sputum: de-escalate abx as per sensitivity , ID follow up -Patient at risk of aspiration 2nd unable to manage oral secretions -h/o A-fib rate controlled on AC (eliquis monitor for bleeding) -Chronic diastolic heart failure with signs of pulmonary HTn: currently on sildenafil, continue negative balance -continue DVT/PUD ppx -aspiration precautions Patient remains hemodynamically stable. above management d/w nursing and at bedside. was informed that patient is at risk of aspiration 2nd underlying stroke and poor mental status. avoid any sedation -Patient's CHADSVasc score >2 requiring AC; however AC can also lead to internal bleeding. informed of risks and banefits of above management and that benefits outweight the risk in regards to AC 2nd A-fib with history of CVA. - Date & Time Date: 11/02/17 Time: 15:05
--- NOTE | 2017-11-02 23:32 | CP.PCM.PN ---
Subjective - Date & Time of Evaluation Date of Evaluation: 11/02/17 Time of Evaluation: 08:00 - Subjective Subjective: renal follow up note no events overnight PE: AO times 3 nad HEENT normal no jvd s1s2 present no resp distress abd soft A&P: jose/azotemia/stroke/afib/chf lasix on hold, agree can restart tomorrow at lower dose lytes ok bp ok Objective - Vital Signs/Intake and Output Vital Signs (last 24 hours): Temp Pulse Resp BP Pulse Ox 99.0 F 77 21 130/53 L 100 11/02/17 20:00 11/02/17 21:00 11/02/17 20:01 11/02/17 21:00 11/02/17 20:01 Intake and Output: 11/02/17 11/03/17 18:59 06:59 Intake Total 1600 170 Output Total 510 Balance 1090 170 - Medications Medications: Current Medications Acetaminophen (Tylenol 650mg/20.3ml Solution Ud) 650 mg PO Q6 PRN PRN Reason: Temperature Last Admin: 11/01/17 09:32 Dose: 650 mg Apixaban (Eliquis) 2.5 mg PO BID [facility] PRN Reason: Protocol Last Admin: 11/02/17 16:06 Dose: 2.5 mg Cholecalciferol (Vitamin D) 5,000 intlu PO DAILY [facility] Last Admin: 11/02/17 08:27 Dose: 5,000 intlu Collagenase (Santyl) 1 applic TOP DAILY [facility] Last Admin: 11/02/17 08:28 Dose: 1 appl Diltiazem HCl (Cardizem) 30 mg PO 0300,0900,1500,2100 [facility] Last Admin: 11/02/17 20:01 Dose: 30 mg Dimethicone (Proshield Plus Skin Protectant) 1 applic TOP Q8 [facility] Last Admin: 11/02/17 16:07 Dose: 1 applic Ferrous Gluconate (Fergon) 324 mg PO DAILY [facility] Last Admin: 11/02/17 08:27 Dose: 324 mg Furosemide (Lasix) 40 mg IVP BID [facility] Last Admin: 11/01/17 09:24 Dose: 40 mg Meropenem 500 mg/ Sodium (Chloride) 100 mls @ 100 mls/hr IVPB Q8 [facility] PRN Reason: Protocol Last Admin: 11/02/17 17:02 Dose: 100 mls/hr Metronidazole (Flagyl 500mg/100ml Ns) 100 mls @ 100 mls/hr IVPB Q8 [facility] PRN Reason: Protocol Last Admin: 11/02/17 16:05 Dose: 100 mls/hr Vancomycin HCl 1 gm/ Sodium (Chloride) 250 mls @ 166.667 mls/hr IVPB Q48H [facility] PRN Reason: Protocol Last Admin: 11/02/17 10:46 Dose: 166.667 mls/hr Lactobacillus Acidophilus (Bacid Acidophilus) 1 cap PO BID [facility] Last Admin: 11/02/17 16:06 Dose: 1 cap Lamotrigine (Lamictal) 50 mg PO Q12@0930,2130 [facility] Last Admin: 11/02/17 21:00 Dose: 50 mg Metoprolol Tartrate (Lopressor) 5 mg IVP Q6 [facility] Last Admin: 11/02/17 21:00 Dose: 5 mg Sildenafil Citrate (Revatio) 20 mg PO BID [facility] Last Admin: 11/02/17 16:07 Dose: 20 mg Spironolactone (Aldactone) 25 mg PO DAILY [facility] Last Admin: 11/02/17 08:27 Dose: 25 mg - Labs Labs: 11/02/17 05:30 11/02/17 05:30 PT 14.9 Seconds (9.8-13.1) H 10/29/17 04:20 INR 1.3 (0.9-1.2) H 10/29/17 04:20 APTT 34.4 Seconds (25.6-37.1) 10/26/17 12:30
--- NOTE | 2017-11-02 23:55 | CP.PCM.PN ---
Subjective - Date & Time of Evaluation Date of Evaluation: 11/02/17 Time of Evaluation: 21:10 - Subjective Subjective: He has significantly improved, now he is opening his eyes and looking around appropriately. There is a positive eye to eye contact. He has normal VS. he is receiving 3 Antibiotics for his Infection of Psudomonas aeruginosa and his heart valves vegetations. He has a Pig tail Chest Catheter for drain any effusion from his left chest. Objective - Vital Signs/Intake and Output Vital Signs (last 24 hours): Temp Pulse Resp BP Pulse Ox 99.0 F 77 21 130/53 L 100 11/02/17 20:00 11/02/17 21:00 11/02/17 20:01 11/02/17 21:00 11/02/17 20:01 Intake and Output: 11/02/17 11/03/17 18:59 06:59 Intake Total 1600 170 Output Total 510 Balance 1090 170 - Medications Medications: Current Medications Acetaminophen (Tylenol 650mg/20.3ml Solution Ud) 650 mg PO Q6 PRN PRN Reason: Temperature Last Admin: 11/01/17 09:32 Dose: 650 mg Apixaban (Eliquis) 2.5 mg PO BID [facility] PRN Reason: Protocol Last Admin: 11/02/17 16:06 Dose: 2.5 mg Cholecalciferol (Vitamin D) 5,000 intlu PO DAILY [facility] Last Admin: 11/02/17 08:27 Dose: 5,000 intlu Collagenase (Santyl) 1 applic TOP DAILY [facility] Last Admin: 11/02/17 08:28 Dose: 1 appl Diltiazem HCl (Cardizem) 30 mg PO 0300,0900,1500,2100 [facility] Last Admin: 11/02/17 20:01 Dose: 30 mg Dimethicone (Proshield Plus Skin Protectant) 1 applic TOP Q8 [facility] Last Admin: 11/02/17 16:07 Dose: 1 applic Ferrous Gluconate (Fergon) 324 mg PO DAILY [facility] Last Admin: 11/02/17 08:27 Dose: 324 mg Furosemide (Lasix) 40 mg IVP BID [facility] Last Admin: 11/01/17 09:24 Dose: 40 mg Meropenem 500 mg/ Sodium (Chloride) 100 mls @ 100 mls/hr IVPB Q8 [facility] PRN Reason: Protocol Last Admin: 11/02/17 17:02 Dose: 100 mls/hr Metronidazole (Flagyl 500mg/100ml Ns) 100 mls @ 100 mls/hr IVPB Q8 [facility] PRN Reason: Protocol Last Admin: 11/02/17 16:05 Dose: 100 mls/hr Vancomycin HCl 1 gm/ Sodium (Chloride) 250 mls @ 166.667 mls/hr IVPB Q48H [facility] PRN Reason: Protocol Last Admin: 11/02/17 10:46 Dose: 166.667 mls/hr Lactobacillus Acidophilus (Bacid Acidophilus) 1 cap PO BID [facility] Last Admin: 11/02/17 16:06 Dose: 1 cap Lamotrigine (Lamictal) 50 mg PO Q12@0930,2130 [facility] Last Admin: 11/02/17 21:00 Dose: 50 mg Metoprolol Tartrate (Lopressor) 5 mg IVP Q6 [facility] Last Admin: 11/02/17 21:00 Dose: 5 mg Sildenafil Citrate (Revatio) 20 mg PO BID [facility] Last Admin: 11/02/17 16:07 Dose: 20 mg Spironolactone (Aldactone) 25 mg PO DAILY [facility] Last Admin: 11/02/17 08:27 Dose: 25 mg - Labs Labs: 11/02/17 05:30 11/02/17 05:30 PT 14.9 Seconds (9.8-13.1) H 10/29/17 04:20 INR 1.3 (0.9-1.2) H 10/29/17 04:20 APTT 34.4 Seconds (25.6-37.1) 10/26/17 12:30 Assessment and Plan (1) CANDELARIA (acute kidney injury) Status: Resolved (2) Acute respiratory failure Status: Acute (3) Altered mental status Status: Deleted (4) Pleural effusion, bilateral Status: Acute (5) Pneumonia Status: Acute (6) Seizure disorder Status: Suspected (7) Encephalopathy Status: Acute
[2017-11-03] MEDS: Meropenem 500 MG in Sodium Chloride 0.9% 100 ML IVPB SCH ×3 (00:17→16:29)
[2017-11-03] MEDS: Proshield Plus GEL TOP SCH ×3 (00:19→16:34)
[2017-11-03] MEDS: metroNIDAZOLE 500mg/100ml NS 100 ML IVPB SCH ×3 (02:00→17:02)
[2017-11-03] MEDS: Metoprolol 1 mg/ml Inj IVP SCH ×4 (05:00→22:37)
[2017-11-03 06:15] LABS: HEMOGLOBIN 8.7 g/dL (12.0-18.0); MEAN CELL VOLUME 96.6 fl (80.0-94.0); MEAN CORPUSCULAR HEMOGLOBIN 30.5 pg (27.0-31.0); MEAN CORPUSCULAR HGB CONC 31.5 g/dL (33.0-37.0); RBC 2.84 Mil/uL (4.40-5.90); RED CELL DISTRIBUTION WIDTH 23.3 % (11.5-14.5); WHITE BLOOD COUNT 6.8 K/uL (4.8-10.8)
--- NOTE | 2017-11-03 06:45 | CP.PCM.PN ---
Subjective - Date & Time of Evaluation Date of Evaluation: 11/02/17 Time of Evaluation: 11:00 - Subjective Subjective: pt more awake and responsive today seizure meds decreased per neuro Objective - Vital Signs/Intake and Output Vital Signs (last 24 hours): Temp Pulse Resp BP Pulse Ox 98.4 F 78 22 149/75 100 11/03/17 04:00 11/03/17 06:00 11/03/17 06:00 11/03/17 06:00 11/03/17 06:00 Intake and Output: 11/02/17 11/03/17 18:59 06:59 Intake Total 1600 1070 Output Total 510 580 Balance 1090 490 - Medications Medications: Current Medications Acetaminophen (Tylenol 650mg/20.3ml Solution Ud) 650 mg PO Q6 PRN PRN Reason: Temperature Last Admin: 11/01/17 09:32 Dose: 650 mg Apixaban (Eliquis) 2.5 mg PO BID [facility] PRN Reason: Protocol Last Admin: 11/02/17 16:06 Dose: 2.5 mg Cholecalciferol (Vitamin D) 5,000 intlu PO DAILY [facility] Last Admin: 11/02/17 08:27 Dose: 5,000 intlu Collagenase (Santyl) 1 applic TOP DAILY [facility] Last Admin: 11/02/17 08:28 Dose: 1 appl Diltiazem HCl (Cardizem) 30 mg PO 0300,0900,1500,2100 [facility] Last Admin: 11/03/17 02:00 Dose: 30 mg Dimethicone (Proshield Plus Skin Protectant) 1 applic TOP Q8 [facility] Last Admin: 11/03/17 00:19 Dose: 1 applic Ferrous Gluconate (Fergon) 324 mg PO DAILY [facility] Last Admin: 11/02/17 08:27 Dose: 324 mg Furosemide (Lasix) 40 mg IVP BID [facility] Last Admin: 11/01/17 09:24 Dose: 40 mg Meropenem 500 mg/ Sodium (Chloride) 100 mls @ 100 mls/hr IVPB Q8 [facility] PRN Reason: Protocol Last Admin: 11/03/17 00:17 Dose: 100 mls/hr Metronidazole (Flagyl 500mg/100ml Ns) 100 mls @ 100 mls/hr IVPB Q8 [facility] PRN Reason: Protocol Last Admin: 11/03/17 02:00 Dose: 100 mls/hr Vancomycin HCl 1 gm/ Sodium (Chloride) 250 mls @ 166.667 mls/hr IVPB Q48H [facility] PRN Reason: Protocol Last Admin: 11/02/17 10:46 Dose: 166.667 mls/hr Lactobacillus Acidophilus (Bacid Acidophilus) 1 cap PO BID [facility] Last Admin: 11/02/17 16:06 Dose: 1 cap Lamotrigine (Lamictal) 50 mg PO Q12@0930,2130 [facility] Last Admin: 11/02/17 21:00 Dose: 50 mg Metoprolol Tartrate (Lopressor) 5 mg IVP Q6 [facility] Last Admin: 11/03/17 05:00 Dose: 5 mg Sildenafil Citrate (Revatio) 20 mg PO BID [facility] Last Admin: 11/02/17 16:07 Dose: 20 mg Spironolactone (Aldactone) 25 mg PO DAILY [facility] Last Admin: 11/02/17 08:27 Dose: 25 mg - Labs Labs: 11/03/17 05:24 11/02/17 05:30 PT 14.9 Seconds (9.8-13.1) H 10/29/17 04:20 INR 1.3 (0.9-1.2) H 10/29/17 04:20 APTT 34.4 Seconds (25.6-37.1) 10/26/17 12:30 - Constitutional Appears: Well - Head Exam Head Exam: ATRAUMATIC, NORMAL INSPECTION, NORMOCEPHALIC - Eye Exam Eye Exam: EOMI, Normal appearance, PERRL Pupil Exam: NORMAL ACCOMODATION, PERRL - ENT Exam ENT Exam: Mucous Membranes Moist, Normal Exam - Neck Exam Neck Exam: Full ROM, Normal Inspection. absent: Lymphadenopathy - Respiratory Exam Respiratory Exam: Clear to Ausculation Bilateral, NORMAL BREATHING PATTERN - Cardiovascular Exam Cardiovascular Exam: Irregular Rhythm, +S1, +S2, Murmur - GI/Abdominal Exam GI & Abdominal Exam: Soft, Normal Bowel Sounds. absent: Tenderness - Extremities Exam Extremities Exam: Full ROM, Normal Capillary Refill, Normal Inspection. absent : Joint Swelling, Pedal Edema - Back Exam Back Exam: NORMAL INSPECTION - Neurological Exam Neurological Exam: Alert, Awake, CN II-XII Intact - Psychiatric Exam Psychiatric exam: Flat Affect, Normal Mood - Skin Skin Exam: Dry, Intact, Normal Color, Warm Assessment and Plan (1) A-fib Assessment & Plan: cont bb and ccb will add digoxin for rate control cont eliquis Status: Chronic (2) Acute on chronic diastolic (congestive) heart failure Status: Chronic (3) Acute respiratory failure with hypoxia Status: Acute (4) Altered mental status Status: Deleted (5) HTN (hypertension) Status: Deleted (6) Seizure disorder Status: Chronic (7) CANDELARIA (acute kidney injury) Status: Resolved (8) Encephalopathy Status: Acute (9) Hypothermia Status: Deleted (10) Pleural effusion, bilateral Status: Acute (11) Supratherapeutic international normalized ratio (INR) Assessment & Plan: switched from coumadin to eliquis Status: Acute (12) Acute decompensated heart failure Status: Acute (13) Atrial fibrillation with RVR Status: Acute
--- NOTE | 2017-11-03 06:47 | CP.PCM.PN ---
Subjective - Date & Time of Evaluation Date of Evaluation: 11/03/17 Time of Evaluation: 06:46 - Subjective Subjective: pt awake and responsive Objective - Vital Signs/Intake and Output Vital Signs (last 24 hours): Temp Pulse Resp BP Pulse Ox 98.4 F 78 22 149/75 100 11/03/17 04:00 11/03/17 06:00 11/03/17 06:00 11/03/17 06:00 11/03/17 06:00 Intake and Output: 11/02/17 11/03/17 18:59 06:59 Intake Total 1600 1070 Output Total 510 580 Balance 1090 490 - Medications Medications: Current Medications Acetaminophen (Tylenol 650mg/20.3ml Solution Ud) 650 mg PO Q6 PRN PRN Reason: Temperature Last Admin: 11/01/17 09:32 Dose: 650 mg Apixaban (Eliquis) 2.5 mg PO BID [facility] PRN Reason: Protocol Last Admin: 11/02/17 16:06 Dose: 2.5 mg Cholecalciferol (Vitamin D) 5,000 intlu PO DAILY [facility] Last Admin: 11/02/17 08:27 Dose: 5,000 intlu Collagenase (Santyl) 1 applic TOP DAILY [facility] Last Admin: 11/02/17 08:28 Dose: 1 appl Diltiazem HCl (Cardizem) 30 mg PO 0300,0900,1500,2100 [facility] Last Admin: 11/03/17 02:00 Dose: 30 mg Dimethicone (Proshield Plus Skin Protectant) 1 applic TOP Q8 [facility] Last Admin: 11/03/17 00:19 Dose: 1 applic Ferrous Gluconate (Fergon) 324 mg PO DAILY [facility] Last Admin: 11/02/17 08:27 Dose: 324 mg Furosemide (Lasix) 40 mg IVP BID [facility] Last Admin: 11/01/17 09:24 Dose: 40 mg Meropenem 500 mg/ Sodium (Chloride) 100 mls @ 100 mls/hr IVPB Q8 [facility] PRN Reason: Protocol Last Admin: 11/03/17 00:17 Dose: 100 mls/hr Metronidazole (Flagyl 500mg/100ml Ns) 100 mls @ 100 mls/hr IVPB Q8 [facility] PRN Reason: Protocol Last Admin: 11/03/17 02:00 Dose: 100 mls/hr Vancomycin HCl 1 gm/ Sodium (Chloride) 250 mls @ 166.667 mls/hr IVPB Q48H [facility] PRN Reason: Protocol Last Admin: 11/02/17 10:46 Dose: 166.667 mls/hr Lactobacillus Acidophilus (Bacid Acidophilus) 1 cap PO BID [facility] Last Admin: 11/02/17 16:06 Dose: 1 cap Lamotrigine (Lamictal) 50 mg PO Q12@0930,2130 [facility] Last Admin: 11/02/17 21:00 Dose: 50 mg Metoprolol Tartrate (Lopressor) 5 mg IVP Q6 [facility] Last Admin: 11/03/17 05:00 Dose: 5 mg Sildenafil Citrate (Revatio) 20 mg PO BID [facility] Last Admin: 11/02/17 16:07 Dose: 20 mg Spironolactone (Aldactone) 25 mg PO DAILY [facility] Last Admin: 11/02/17 08:27 Dose: 25 mg - Labs Labs: 11/03/17 05:24 11/02/17 05:30 PT 14.9 Seconds (9.8-13.1) H 10/29/17 04:20 INR 1.3 (0.9-1.2) H 10/29/17 04:20 APTT 34.4 Seconds (25.6-37.1) 10/26/17 12:30 - Constitutional Appears: Well - Head Exam Head Exam: ATRAUMATIC, NORMAL INSPECTION, NORMOCEPHALIC - Eye Exam Eye Exam: EOMI, Normal appearance, PERRL Pupil Exam: NORMAL ACCOMODATION, PERRL - ENT Exam ENT Exam: Mucous Membranes Moist, Normal Exam - Neck Exam Neck Exam: Full ROM, Normal Inspection. absent: Lymphadenopathy - Respiratory Exam Respiratory Exam: Clear to Ausculation Bilateral, NORMAL BREATHING PATTERN - Cardiovascular Exam Cardiovascular Exam: Irregular Rhythm, +S1, +S2, Murmur - GI/Abdominal Exam GI & Abdominal Exam: Soft, Normal Bowel Sounds. absent: Tenderness - Extremities Exam Extremities Exam: Full ROM, Normal Capillary Refill, Normal Inspection. absent : Joint Swelling, Pedal Edema - Back Exam Back Exam: NORMAL INSPECTION - Neurological Exam Neurological Exam: Alert, Awake, CN II-XII Intact - Psychiatric Exam Psychiatric exam: Normal Affect, Normal Mood - Skin Skin Exam: Dry, Intact, Normal Color, Warm Assessment and Plan (1) A-fib Status: Chronic (2) Acute on chronic diastolic (congestive) heart failure Status: Chronic (3) Acute respiratory failure with hypoxia Status: Acute (4) Altered mental status Status: Deleted (5) HTN (hypertension) Status: Deleted (6) Seizure disorder Status: Chronic (7) CANDELARIA (acute kidney injury) Status: Resolved (8) Encephalopathy Status: Acute (9) Hypothermia Status: Deleted (10) Pleural effusion, bilateral Status: Acute (11) Supratherapeutic international normalized ratio (INR) Status: Acute (12) Acute decompensated heart failure Status: Acute (13) Atrial fibrillation with RVR Status: Acute
[2017-11-03 06:56] LABS: BLOOD UREA NITROGEN 37 mg/dl (9-20); CALCIUM 8.3 mg/dL (8.4-10.2); GFR AFRICAN-AMERICAN > 60; GFR NON-AFRICAN AMERICAN > 60
[2017-11-03] MEDS: Lactobacillus Acidophilus 500 MU Cap PO SCH ×2 (08:44→16:27)
[2017-11-03] MEDS: Sildenafil 20 MG TAB PO SCH ×2 (08:45→16:33)
[2017-11-03] MEDS: Santyl Collagenase OINTMENT TOP SCH (08:49)
[2017-11-03] MEDS: Cholecalciferol 1,000 INTLU TAB PO SCH (08:50)
--- NOTE | 2017-11-03 09:43 | CP.CCUPN ---
CCU Subjective - Physician Review Subjective (Free Text): Patient seen and examined at bedside. Events overnight reviewed. 11/02/17 14:56 CCU Objective - Vital Signs / Intake & Output Vital Signs (Last 4 hours): Vital Signs Pulse Resp BP Pulse Ox 11/03/17 08:52 142/73 11/03/17 08:45 86 11/03/17 06:00 78 22 149/75 100 11/03/17 05:46 16 Intake and Output (Last 8hrs): Intake & Output 11/02/17 11/03/17 11/03/17 22:59 06:59 14:59 Intake Total 1360 760 Output Total 510 580 Balance 850 180 Intake: Intake, Piggyback 210 200 Tube Feeding 1050 560 Free Water Flush 100 Output: Chest Tube Drainage 0 Left Upper Posterior 0 Chest Drainage 10 Left Chest 10 Urine 500 550 Urethral (Wang) 500 550 Stool 30 Other: # Bowel Movements 1 - Physical Exam Head: Positive for: Atraumatic, Normocephalic, Other (NG tube) Pupils: Positive for: PERRL, Sluggish Extroacular Muscles: Positive for: EOMI Conjunctiva: Positive for: Normal. Negative for: Icteric Ears: Positive for: Normal Mouth: Positive for: Moist Mucous Membranes Pharnyx: Negative for: ERYTHEMA Neck: Positive for: Normal Range of Motion. Negative for: JVD Respiratory/Chest: Positive for: Good Air Exchange, Respiratory Distress, Decreased Breath Sounds, Rhonchi (upper airway rhonchi), Tachypneic. Negative for: Accessory Muscle Use, Wheezes Cardiovascular: Positive for: Murmurs, Irregular Rhythm, Peripheal Pulses Present, Tachycardic. Negative for: Normal S1, S2, Rub Abdomen: Positive for: Normal Bowel Sounds. Negative for: Tenderness, Distention, Peritoneal Signs Upper Extremity: Positive for: Edema Lower Extremity: Positive for: Edema, NORMAL PULSES. Negative for: CALF TENDERNESS, Cyanosis Neurological: Positive for: Other (withdraws to deep pain) Skin: Positive for: Warm, Dry. Negative for: Rashes Psychiatric: Positive for: Alert, Lethargic. Negative for: Oriented x 3 - Medications Active Medications: Active Medications Generic Name Dose Route Start Last Admin Trade Name Freq PRN Reason Stop Dose Admin Acetaminophen 650 mg 10/25/17 16:16 11/01/17 09:32 Tylenol 650mg/20.3ml Solution Ud PO 650 mg Q6 PRN Administration Temperature Apixaban 2.5 mg 10/30/17 17:00 11/03/17 08:45 Eliquis PO 2.5 mg BID [facility] Administration Protocol Cholecalciferol 5,000 intlu 10/18/17 09:00 11/03/17 08:50 Vitamin D PO 5,000 intlu DAILY [facility] Administration Collagenase 1 applic 11/01/17 09:00 11/03/17 08:49 Santyl TOP 1 appl DAILY [facility] Administration Diltiazem HCl 30 mg 10/18/17 03:00 11/03/17 08:45 Cardizem PO 30 mg 0300,0900,1500,2100 [facility] Administration Dimethicone 1 applic 10/23/17 09:00 11/03/17 08:49 Proshield Plus Skin Protectant TOP 1 applic Q8 [facility] Administration Ferrous Gluconate 324 mg 10/24/17 09:00 11/03/17 08:45 Fergon PO 324 mg DAILY [facility] Administration Furosemide 40 mg 11/04/17 09:00 Lasix IVP DAILY [facility] Meropenem 500 mg/ Sodium 100 mls @ 100 mls/hr 10/31/17 12:30 11/03/17 08:47 Chloride IVPB 100 mls/hr Q8 [facility] Administration Protocol Metronidazole 100 mls @ 100 mls/hr 11/01/17 17:00 11/03/17 08:46 Flagyl 500mg/100ml Ns IVPB 100 mls/hr Q8 [facility] Administration Protocol Vancomycin HCl 1 gm/ Sodium 250 mls @ 166.667 mls/hr 11/02/17 09:00 11/02/17 10:46 Chloride IVPB 166.667 mls/hr Q48H [facility] Administration Protocol Lactobacillus Acidophilus 1 cap 10/08/17 09:00 11/03/17 08:44 Bacid Acidophilus PO 1 cap BID [facility] Administration Lamotrigine 50 mg 10/31/17 21:30 11/03/17 08:45 Lamictal PO 50 mg Q12@0930,2130 [facility] Administration Metoprolol Tartrate 5 mg 10/31/17 23:21 11/03/17 05:00 Lopressor IVP 5 mg Q6 [facility] Administration Sildenafil Citrate 20 mg 11/01/17 09:00 11/03/17 08:45 Revatio PO 20 mg BID [facility] Administration Spironolactone 25 mg 10/24/17 19:00 11/03/17 08:45 Aldactone PO 25 mg DAILY [facility] Administration - Patient Studies Lab Studies: Microbiology Studies 10/31/17 18:38 Gram Stain - Final Sputum Sputum Culture - Final Pseudomonas Aeruginosa Lab Studies 11/03/17 11/03/17 11/03/17 Range/Units 05:24 05:24 00:25 WBC 6.8 (4.8-10.8) K/uL RBC 2.84 L (4.40-5.90) Mil/uL Hgb 8.7 L (12.0-18.0) g/dL Hct 27.5 L (35.0-51.0) % MCV 96.6 H (80.0-94.0) fl MCH 30.5 (27.0-31.0) pg MCHC 31.5 L (33.0-37.0) g/dL RDW 23.3 H (11.5-14.5) % Plt Count 328 (130-400) K/uL Sodium 138 (132-148) mmol/l Potassium 4.3 (3.6-5.0) MMOL/L Chloride 102 (98-107) mmol/L Carbon Dioxide 30 (22-30) mmol/L Anion Gap 10 (10-20) BUN 37 H (9-20) mg/dl Creatinine 0.8 (0.8-1.5) mg/dl Est GFR ( Amer) > 60 Est GFR (Non-Af Amer) > 60 Random Glucose 129 H (75-110) mg/dL Calcium 8.3 L (8.4-10.2) mg/dL Phosphorus 2.7 (2.5-4.5) mg/dl Magnesium 2.3 (1.6-2.3) MG/DL Stool Occult Blood Negative (NEGATIVE) Laboratory Results - last 24 hr 11/03/17 11/03/17 11/03/17 00:25 05:24 05:24 WBC 6.8 RBC 2.84 L Hgb 8.7 L Hct 27.5 L MCV 96.6 H MCH 30.5 MCHC 31.5 L RDW 23.3 H Plt Count 328 Sodium 138 Potassium 4.3 Chloride 102 Carbon Dioxide 30 Anion Gap 10 BUN 37 H Creatinine 0.8 Est GFR ( Amer) > 60 Est GFR (Non-Af Amer) > 60 Random Glucose 129 H Calcium 8.3 L Phosphorus 2.7 Magnesium 2.3 Stool Occult Blood Negative Fingerstick Blood Sugar Results: 83 Assessment/Plan - Assessment and Plan (Free Text) Plan: 77 Years old Male with Pmx of Atrial Fibrillation (on coumadin at home/eliquis in hospital), CHF, CVA, HTN, Seizure disorder, on lamicatal, h/o Sleep Apnea on bi-pap, h/o CVA right frontoparietal/TIA who was admitted to ICU for respiratory failure. -AMS: baseline as per sitting at bedside, h/o Stroke, more awake today -Acute on chronic hypoxic respiratory failure:contiinue high flow to keep spo2 > 92 and EtCO2 check q4hrs, bi-pap prn Qhs, decrease FiO2 to 40% -pleural effusion: chest tube output >100 ml/hr, continue lasix, risks and benefits of chest tube, draiainge versus infection d/w at bedside -h/o CVA: continue asa/statin -h/o seizures: continue lamicatal, avoid any other sedatives -Aspiration: Pseudomonas; de-escalate abx as per sensitivity, no GPC identified (consider D/c vanco), ID follow up requested -Patient at risk of aspiration 2nd unable to manage oral secretions, continue oral suctioning. -h/o A-fib rate controlled on AC (eliquis monitor for bleeding) -Chronic diastolic heart failure with signs of pulmonary HTN: currently on sildenafil, continue negative balance -continue DVT/PUD ppx -aspiration precautions Patient remains hemodynamically stable. above management d/w nursing and at bedside. was informed that patient is at risk of aspiration 2nd underlying stroke and poor mental status. avoid any sedation -Monitor for internal bleeding. informed of risks and benefits of above management and that benefits outweight the risk in regards to AC 2nd A-fib with history of CVA. - Date & Time Date: 11/03/17 Time: 09:43
--- NOTE | 2017-11-03 10:31 | RAD ---
PROCEDURE: CHEST RADIOGRAPH, 1 VIEW HISTORY: effusion COMPARISON: Chest radiograph dated 11/02/2017 FINDINGS: LUNGS: Pulmonary vascular congestion. Bibasilar atelectasis. PLEURA: Small bilateral pleural effusions. No appreciable pneumothorax. CARDIOVASCULAR: Unchanged OSSEOUS STRUCTURES: Unchanged VISUALIZED UPPER ABDOMEN: Normal. OTHER FINDINGS: Enteric tube, right upper extremity PICC and left basilar pigtail chest tube, unchanged. IMPRESSION: No significant interval change.
--- NOTE | 2017-11-03 11:55 | CP.PCM.PN ---
Subjective - Date & Time of Evaluation Date of Evaluation: 11/03/17 Time of Evaluation: 16:00 - Subjective Subjective: Covering for PMD Dr. Escamilla All chart and clinical data reviewed. Patient seen bedside. Elderly male chronically ill lying in bed , awake and alert on high Flow via NC 40 LPM / FIO2 50 % saturating well Appears much more awake and alert today, following commands bedside No acute issues overnight Hemodynamically stable, afebrile left pig tail with no output last 12 hours Objective - Vital Signs/Intake and Output Vital Signs (last 24 hours): Temp Pulse Resp BP Pulse Ox 98.4 F 79 20 151/70 H 100 11/03/17 04:00 11/03/17 09:57 11/03/17 11:27 11/03/17 09:57 11/03/17 06:00 Intake and Output: 11/03/17 11/03/17 06:59 18:59 Intake Total 1070 380 Output Total 580 300 Balance 490 80 - Medications Medications: Current Medications Acetaminophen (Tylenol 650mg/20.3ml Solution Ud) 650 mg PO Q6 PRN PRN Reason: Temperature Last Admin: 11/01/17 09:32 Dose: 650 mg Apixaban (Eliquis) 2.5 mg PO BID [facility] PRN Reason: Protocol Last Admin: 11/03/17 08:45 Dose: 2.5 mg Cholecalciferol (Vitamin D) 5,000 intlu PO DAILY [facility] Last Admin: 11/03/17 08:50 Dose: 5,000 intlu Collagenase (Santyl) 1 applic TOP DAILY [facility] Last Admin: 11/03/17 08:49 Dose: 1 appl Diltiazem HCl (Cardizem) 30 mg PO 0300,0900,1500,2100 [facility] Last Admin: 11/03/17 08:45 Dose: 30 mg Dimethicone (Proshield Plus Skin Protectant) 1 applic TOP Q8 [facility] Last Admin: 11/03/17 08:49 Dose: 1 applic Ferrous Gluconate (Fergon) 324 mg PO DAILY [facility] Last Admin: 11/03/17 08:45 Dose: 324 mg Furosemide (Lasix) 40 mg IVP DAILY [facility] Meropenem 500 mg/ Sodium (Chloride) 100 mls @ 100 mls/hr IVPB Q8 [facility] PRN Reason: Protocol Last Admin: 11/03/17 08:47 Dose: 100 mls/hr Metronidazole (Flagyl 500mg/100ml Ns) 100 mls @ 100 mls/hr IVPB Q8 [facility] PRN Reason: Protocol Last Admin: 11/03/17 08:46 Dose: 100 mls/hr Vancomycin HCl 1 gm/ Sodium (Chloride) 250 mls @ 166.667 mls/hr IVPB Q48H [facility] PRN Reason: Protocol Last Admin: 11/02/17 10:46 Dose: 166.667 mls/hr Lactobacillus Acidophilus (Bacid Acidophilus) 1 cap PO BID [facility] Last Admin: 11/03/17 08:44 Dose: 1 cap Lamotrigine (Lamictal) 50 mg PO Q12@0930,2130 [facility] Last Admin: 11/03/17 08:45 Dose: 50 mg Metoprolol Tartrate (Lopressor) 5 mg IVP Q6 [facility] Last Admin: 11/03/17 09:57 Dose: 5 mg Sildenafil Citrate (Revatio) 20 mg PO BID [facility] Last Admin: 11/03/17 08:45 Dose: 20 mg Spironolactone (Aldactone) 25 mg PO DAILY [facility] Last Admin: 11/03/17 08:45 Dose: 25 mg - Labs Labs: 11/03/17 05:24 11/03/17 05:24 PT 14.9 Seconds (9.8-13.1) H 10/29/17 04:20 INR 1.3 (0.9-1.2) H 10/29/17 04:20 APTT 34.4 Seconds (25.6-37.1) 10/26/17 12:30 - Constitutional Appears: Non-toxic, No Acute Distress, Chronically Ill - Head Exam Head Exam: NORMOCEPHALIC Additional comments: nasal bridge eschar - Eye Exam Eye Exam: EOMI, PERRL Pupil Exam: NORMAL ACCOMODATION - ENT Exam ENT Exam: Mucous Membranes Dry, Normal Exam - Neck Exam Neck Exam: Full ROM, Normal Inspection - Respiratory Exam Respiratory Exam: Clear to Ausculation Bilateral. absent: Rales, Rhonchi, Wheezes - Cardiovascular Exam Cardiovascular Exam: Irregular Rhythm. absent: JVD - GI/Abdominal Exam GI & Abdominal Exam: Soft, Normal Bowel Sounds. 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 As per , she feels patient had clonic movements several days ago. Patient was found to be Hypotermic with SOB associated with cough unable to bring out phlegms, also with CXr showing bilateral pleural effusions and Infiltrates . INR 5.6, PTT 68.0, PT 65.9 His hospital course has been complicated by hypoxia requiring intubation, right pig tail catheter placement and left thoracentesis for pleural effusions. He has been followed by neuro , pulmonary , ID, nephro and cardiology . He has been on broad spectrum antibiotics for Aspiration Pneumonia and has been diuresing well and developed CANDELARIA and hypernatremia. At present more awake and alert , following commands. Tolerating High flow during the day 40 LPM FIO2 50 % and Bipap at night.Sputum cultures positive for Pseudomonas aerugoinosa. 1. Acute respiratory failure with hypoxia and hyperecarbia etiology multi factorial -- pleural effusion , CHF, pneumonia was intubated and now extubated tolerating High Flow 40 LPM on FIO2 50 % and BIPAP at night s/p multiple thoracentheis with pig tail placement . At present left pig tail in place with 360 ml drainage last 24 hours Sputum cx positive for pseudomonas ID on consult. On meropenem and vanco IV Continue duonebs CXR showed improvement of infiltrates and minimal pleural effusion Aspiration precautions since patient failed swallow eval NGT in place with feeding Vital 1.0 with no residuals. refused peg placement pulmonary on consult following 2. Aspiration pneumonia Acute ID and pulmonary on consult s/p BAL sputum cx positive for Pseudomonas On Vanco and meropenem 3.Altered mental status-- improving unclear etiology possibly Metabolic encephalopathy due to hypoxemia, pneumonia or related to uncontrolled seizures CT head showed no acute pathology Neurology consulted Increased lamictal dose to 50 mg Q12 seizure precautions Today more awake and alert , following commands Continue Bipap and High flow as ordered on IV antibiotics 4. Pleural effusion, bilateral s/p mulitiple thoracenthesis both right and left by IR and chest tube placement by CTS At present left pig tail in place with no output overnight pulmonary and CTS on consult 5. Diastolic CHF, acute on chronic with pulmonary hypertension Acute cardiology on board Diuretics on hold due to worsening renal function and hypernatremia low salt diet on Sildenafil for pulmonary hypertension Resumed lasix today Continue spironolactone 6. A-fib Chronic , better controlled cardiology on consult Dr. Castro s/p STEVEN and elective cardioversion on cardizem and metoprolol IV On Eliquist for anticoagulation 7.CANDELARIA (acute kidney injury) improved Nephrology on consult 8. Hypernatremia resolved due to dehydration low salt diet 9. HTN (hypertension) Chronic , controlled on Metoprolol, cardizem and spironolactone 10. Hx of seizure disorder Chronic neurology consulted increased lamictal dose to 50 Q12 11. Anemia of chronic disease Hgb 8.3 Monitor for now on ferrous sulfate 12.Coumadin toxicity INR was 5.6 on admission Coumadin on hold started Eliquist for anticoagulation 13. SUSAN (obstructive sleep apnea) Chronic BIPAP at night 14. C diff antigen positive Dr. Winslow on consultation Flagyl added 15. Failed swallow eval NGT in place with feeding Aspiration precautions refused peg 16. Frailty/ poor ,guarded prognosis patient is full code is surrogate decision maker 17. Vitamin D deficiency on ergocalciferol 18. DVT prophylaxis Eliquis
--- NOTE | 2017-11-03 12:14 | CP.PCM.PN ---
Subjective - Date & Time of Evaluation Date of Evaluation: 11/03/17 Time of Evaluation: 10:00 - Subjective Subjective: more awake alert less cough less sob Objective - Vital Signs/Intake and Output Vital Signs (last 24 hours): Temp Pulse Resp BP Pulse Ox 98.5 F 79 26 H 130/59 L 100 11/03/17 12:00 11/03/17 12:00 11/03/17 12:00 11/03/17 12:00 11/03/17 12:00 Intake and Output: 11/03/17 11/03/17 06:59 18:59 Intake Total 1070 720 Output Total 580 550 Balance 490 170 - Medications Medications: Current Medications Acetaminophen (Tylenol 650mg/20.3ml Solution Ud) 650 mg PO Q6 PRN PRN Reason: Temperature Last Admin: 11/01/17 09:32 Dose: 650 mg Apixaban (Eliquis) 2.5 mg PO BID [facility] PRN Reason: Protocol Last Admin: 11/03/17 08:45 Dose: 2.5 mg Cholecalciferol (Vitamin D) 5,000 intlu PO DAILY [facility] Last Admin: 11/03/17 08:50 Dose: 5,000 intlu Collagenase (Santyl) 1 applic TOP DAILY [facility] Last Admin: 11/03/17 08:49 Dose: 1 appl Diltiazem HCl (Cardizem) 30 mg PO 0300,0900,1500,2100 [facility] Last Admin: 11/03/17 08:45 Dose: 30 mg Dimethicone (Proshield Plus Skin Protectant) 1 applic TOP Q8 [facility] Last Admin: 11/03/17 08:49 Dose: 1 applic Ferrous Gluconate (Fergon) 324 mg PO DAILY [facility] Last Admin: 11/03/17 08:45 Dose: 324 mg Furosemide (Lasix) 40 mg IVP DAILY [facility] Meropenem 500 mg/ Sodium (Chloride) 100 mls @ 100 mls/hr IVPB Q8 [facility] PRN Reason: Protocol Last Admin: 11/03/17 08:47 Dose: 100 mls/hr Metronidazole (Flagyl 500mg/100ml Ns) 100 mls @ 100 mls/hr IVPB Q8 [facility] PRN Reason: Protocol Last Admin: 11/03/17 08:46 Dose: 100 mls/hr Vancomycin HCl 1 gm/ Sodium (Chloride) 250 mls @ 166.667 mls/hr IVPB Q48H [facility] PRN Reason: Protocol Last Admin: 11/02/17 10:46 Dose: 166.667 mls/hr Lactobacillus Acidophilus (Bacid Acidophilus) 1 cap PO BID [facility] Last Admin: 11/03/17 08:44 Dose: 1 cap Lamotrigine (Lamictal) 50 mg PO Q12@0930,2130 [facility] Last Admin: 11/03/17 08:45 Dose: 50 mg Metoprolol Tartrate (Lopressor) 5 mg IVP Q6 [facility] Last Admin: 11/03/17 09:57 Dose: 5 mg Sildenafil Citrate (Revatio) 20 mg PO BID [facility] Last Admin: 11/03/17 08:45 Dose: 20 mg Spironolactone (Aldactone) 25 mg PO DAILY [facility] Last Admin: 11/03/17 08:45 Dose: 25 mg - Labs Labs: 11/03/17 05:24 11/03/17 05:24 PT 14.9 Seconds (9.8-13.1) H 10/29/17 04:20 INR 1.3 (0.9-1.2) H 10/29/17 04:20 APTT 34.4 Seconds (25.6-37.1) 10/26/17 12:30 - Constitutional Appears: Non-toxic, Chronically Ill - Head Exam Head Exam: NORMOCEPHALIC - Eye Exam Eye Exam: PERRL. absent: Scleral icterus - ENT Exam ENT Exam: Mucous Membranes Dry - Neck Exam Neck Exam: absent: Lymphadenopathy - Respiratory Exam Respiratory Exam: Decreased Breath Sounds, Rales, Rhonchi - Cardiovascular Exam Cardiovascular Exam: REGULAR RHYTHM - GI/Abdominal Exam GI & Abdominal Exam: Distended, Soft - Rectal Exam Rectal Exam: Deferred - Exam Exam: NORMAL INSPECTION Assessment and Plan (1) CANDELARIA (acute kidney injury) Status: Resolved (2) Acute respiratory failure Status: Acute (3) Altered mental status Status: Deleted (4) Diastolic CHF, acute on chronic Status: Acute (5) Pleural effusion, bilateral Status: Acute (6) Pneumonia Status: Acute (7) Aortic valve vegetation Status: Acute
[2017-11-04] MEDS: Proshield Plus GEL TOP SCH ×3 (00:51→17:27)
[2017-11-04] MEDS: Meropenem 500 MG in Sodium Chloride 0.9% 100 ML IVPB SCH ×3 (00:52→17:25)
[2017-11-04] MEDS: metroNIDAZOLE 500mg/100ml NS 100 ML IVPB SCH ×3 (00:53→17:32)
[2017-11-04] MEDS: Metoprolol 1 mg/ml Inj IVP SCH ×4 (04:07→23:17)
[2017-11-04 05:23] LABS: BASO % 0.4 % (0.0-2.0); EOS # 0.1 K/uL (0.0-0.7); EOS % 1.7 % (0.0-4.0); HEMOGLOBIN 8.8 g/dL (12.0-18.0); LYMPH # 0.6 K/uL (1.0-4.3); LYMPH % 9.2 % (20.0-40.0); MEAN CELL VOLUME 95.8 fl (80.0-94.0); MEAN CORPUSCULAR HEMOGLOBIN 31.2 pg (27.0-31.0); MEAN CORPUSCULAR HGB CONC 32.6 g/dL (33.0-37.0); MEAN PLATELET VOLUME 8.2 fl (7.2-11.7); MONO # 0.7 K/uL (0.0-0.8); MONO % 10.5 % (0.0-10.0); NEUT # 5.1 K/uL (1.8-7.0); NEUT % 78.2 % (50.0-75.0); PLATELET COUNT 321 K/uL (130-400); RBC 2.84 Mil/uL (4.40-5.90); RED CELL DISTRIBUTION WIDTH 23.2 % (11.5-14.5); WHITE BLOOD COUNT 6.6 K/uL (4.8-10.8)
[2017-11-04 07:06] LABS: ALB/GLOB RATIO 0.7 (1.0-2.1); ALBUMIN 2.7 g/dL (3.5-5.0); ALT/SGPT 29 U/L (21-72); AST/SGOT 33 U/L (17-59); BLOOD UREA NITROGEN 37 mg/dl (9-20); CALCIUM 8.4 mg/dL (8.4-10.2); GFR AFRICAN-AMERICAN > 60; GFR NON-AFRICAN AMERICAN > 60
[2017-11-04] MEDS: Lactobacillus Acidophilus 500 MU Cap PO SCH ×2 (08:40→17:32)
[2017-11-04] MEDS: Sildenafil 20 MG TAB PO SCH ×2 (08:46→17:25)
[2017-11-04] MEDS: Cholecalciferol 1,000 INTLU TAB PO SCH (08:51)
[2017-11-04] MEDS: Santyl Collagenase OINTMENT TOP SCH (08:51)
[2017-11-04 09:29] LABS: BANDS 2 % (0-2); BASOPHIL 1 % (0-2); EOSINOPHIL 3 % (0-7); LYMPHOCYTE 9 % (20-50); MONOCYTE 9 % (0-10); NEUTROPHIL 76 % (42-75); TOTAL CELLS COUNTED 100
[2017-11-04 09:30] LABS: ANISOCYTOSIS MODERATE; HYPOCHROMIC SLIGHT; OVALOCYTES SLIGHT; PLATELET ESTIMATE NORMAL (NORMAL); POIKILOCYTOSIS SLIGHT; SCHISTOCYTES SLIGHT; TEARDROP CELLS SLIGHT
--- NOTE | 2017-11-04 10:25 | CP.PCM.PN ---
Subjective - Date & Time of Evaluation Date of Evaluation: 11/04/17 Time of Evaluation: 09:00 - Subjective Subjective: Hospitalist covering for Dr. Escamilla. Patient continues to be more awake and alert today and is responds correctly to questioning. He is following commands. is at bedside. No reported issues overnight. Only 10 ml of drainage from left pigtail yesterday. Hemodynamically stable and afebrile today. Objective - Vital Signs/Intake and Output Vital Signs (last 24 hours): Temp Pulse Resp BP Pulse Ox 98.8 F 99 H 22 148/79 100 11/04/17 07:33 11/04/17 08:48 11/04/17 09:23 11/04/17 08:57 11/04/17 08:48 Intake and Output: 11/04/17 11/04/17 06:59 18:59 Intake Total 400 140 Output Total 500 100 Balance -100 40 - Medications Medications: Current Medications Acetaminophen (Tylenol 650mg/20.3ml Solution Ud) 650 mg PO Q6 PRN PRN Reason: Temperature Last Admin: 11/01/17 09:32 Dose: 650 mg Apixaban (Eliquis) 2.5 mg PO BID [facility] PRN Reason: Protocol Last Admin: 11/04/17 08:47 Dose: 2.5 mg Cholecalciferol (Vitamin D) 5,000 intlu PO DAILY [facility] Last Admin: 11/04/17 08:51 Dose: 5,000 intlu Collagenase (Santyl) 1 applic TOP DAILY [facility] Last Admin: 11/04/17 08:51 Dose: 1 appl Diltiazem HCl (Cardizem) 30 mg PO 0300,0900,1500,2100 [facility] Last Admin: 11/04/17 08:48 Dose: 30 mg Dimethicone (Proshield Plus Skin Protectant) 1 applic TOP Q8 [facility] Last Admin: 11/04/17 08:51 Dose: 1 applic Ferrous Gluconate (Fergon) 324 mg PO DAILY [facility] Last Admin: 11/04/17 08:46 Dose: 324 mg Furosemide (Lasix) 40 mg IVP DAILY [facility] Last Admin: 11/04/17 08:57 Dose: 40 mg Meropenem 500 mg/ Sodium (Chloride) 100 mls @ 100 mls/hr IVPB Q8 [facility] PRN Reason: Protocol Last Admin: 11/04/17 08:50 Dose: 100 mls/hr Metronidazole (Flagyl 500mg/100ml Ns) 100 mls @ 100 mls/hr IVPB Q8 [facility] PRN Reason: Protocol Last Admin: 11/04/17 08:40 Dose: 100 mls/hr Vancomycin HCl 1 gm/ Sodium (Chloride) 250 mls @ 166.667 mls/hr IVPB Q48H [facility] PRN Reason: Protocol Last Admin: 11/04/17 08:40 Dose: 166.667 mls/hr Lactobacillus Acidophilus (Bacid Acidophilus) 1 cap PO BID [facility] Last Admin: 11/04/17 08:40 Dose: 1 cap Lamotrigine (Lamictal) 50 mg PO Q12@0930,2130 [facility] Last Admin: 11/04/17 08:47 Dose: 50 mg Metoprolol Tartrate (Lopressor) 5 mg IVP Q6 [facility] Last Admin: 11/04/17 04:07 Dose: 5 mg Sildenafil Citrate (Revatio) 20 mg PO BID [facility] Last Admin: 11/04/17 08:46 Dose: 20 mg Spironolactone (Aldactone) 25 mg PO DAILY [facility] Last Admin: 11/04/17 08:48 Dose: 25 mg - Labs Labs: 11/04/17 04:30 11/04/17 06:30 PT 14.9 Seconds (9.8-13.1) H 10/29/17 04:20 INR 1.3 (0.9-1.2) H 10/29/17 04:20 APTT 34.4 Seconds (25.6-37.1) 10/26/17 12:30 - Additional Findings Additional findings: Physical exam: Constitutional- lethargic, arousable to voice Head- NCAT, PERRL Eye- PERRL, normal accommodation ENT- normal exam, MMM. 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 As per , she feels patient had clonic movements several days ago. Patient was found to be Hypotermic with SOB associated with cough unable to bring out phlegms, also with CXr showing bilateral pleural effusions and Infiltrates . INR 5.6, PTT 68.0, PT 65.9 His hospital course has been complicated by hypoxia requiring intubation, right pig tail catheter placement and left thoracentesis for pleural effusions. He has been followed by neuro , pulmonary , ID, nephro and cardiology . He has been on broad spectrum antibiotics for Aspiration Pneumonia and has been diuresing well and developed CANDELARIA and hypernatremia. At present more awake and alert , following commands. Tolerating High flow during the day 40 LPM FIO2 50 % and Bipap at night.Sputum cultures positive for Pseudomonas aerugoinosa. 1. Acute respiratory failure with hypoxia and hypercapnia etiology multi factorial -- pleural effusion , CHF, pneumonia was intubated and now extubated tolerating High Flow w Vapotherm 40 LPM on FIO2 50 % and BIPAP at night s/p multiple thoracentheis with pig tail placement . At present left pig tail in place with only 10 ml drainage last 24 hours Sputum cx positive for pseudomonas ID on consult. On meropenem and vanco IV as well as Flagyl. Continue duonebs CXR showed improvement of infiltrates and minimal pleural effusion Aspiration precautions since patient failed swallow eval NGT in place with feeding Vital 1.0 with no residuals. refused peg placement pulmonary on consult following 2. Aspiration pneumonia Acute ID and pulmonary on consult s/p BAL sputum cx positive for Pseudomonas On Vanco and meropenem 3.Altered mental status-- improving unclear etiology possibly Metabolic encephalopathy due to hypoxemia, pneumonia or related to uncontrolled seizures CT head showed no acute pathology Neurology consulted Lamictla 50 mg po Q12 seizure precautions Today more awake and alert , following commands Continue Bipap and High flow as ordered on IV antibiotics 4. Pleural effusion, bilateral s/p mulitiple thoracenthesis both right and left by IR and chest tube placement by CTS At present left pig tail in place with no output overnight pulmonary and CTS on consult 5. Diastolic CHF, acute on chronic with pulmonary hypertension Acute cardiology on board Diuretics on hold due to worsening renal function and hypernatremia low salt diet on Sildenafil for pulmonary hypertension Continue Lasix Continue spironolactone 6. A-fib Chronic , better controlled cardiology on consult Dr. Castro s/p STEVEN and elective cardioversion on cardizem and metoprolol IV On Eliquis for anticoagulation 7.CANDELARIA (acute kidney injury)- resolving stable improved Nephrology on consult 8. Hypernatremia resolved due to dehydration low salt diet 9. HTN (hypertension) Chronic , controlled on Metoprolol, cardizem and spironolactone 10. Hx of seizure disorder Chronic neurology consulted increased lamictal dose to 50 Q12 11. Anemia of chronic disease Hgb 8.8 today, stable Monitor for now on ferrous sulfate 12.Coumadin toxicity INR was 5.6 on admission Coumadin on hold started Eliquist for anticoagulation 13. SUSAN (obstructive sleep apnea) Chronic BIPAP at night 14. C diff antigen positive Dr. Winslow on consultation Flagyl added 15. Failed swallow eval NGT in place with feeding Aspiration precautions refused peg 16. Frailty/ poor ,guarded prognosis patient is full code is surrogate decision maker 17. Vitamin D deficiency on ergocalciferol 18. DVT prophylaxis Eliquis
--- NOTE | 2017-11-04 19:03 | CP.PCM.PN ---
Subjective - Date & Time of Evaluation Date of Evaluation: 11/04/17 Time of Evaluation: 19:02 - Subjective Subjective: greeted me with tawanda robison today awake and completely with it Objective - Vital Signs/Intake and Output Vital Signs (last 24 hours): Temp Pulse Resp BP Pulse Ox 98.5 F 90 23 122/55 L 100 11/04/17 16:00 11/04/17 18:00 11/04/17 18:00 11/04/17 18:00 11/04/17 18:00 Intake and Output: 11/04/17 11/05/17 18:59 06:59 Intake Total 1650 Output Total 1510 Balance 140 - Medications Medications: Current Medications Acetaminophen (Tylenol 650mg/20.3ml Solution Ud) 650 mg PO Q6 PRN PRN Reason: Temperature Last Admin: 11/01/17 09:32 Dose: 650 mg Apixaban (Eliquis) 2.5 mg PO BID [facility] PRN Reason: Protocol Last Admin: 11/04/17 17:25 Dose: 2.5 mg Cholecalciferol (Vitamin D) 5,000 intlu PO DAILY [facility] Last Admin: 11/04/17 08:51 Dose: 5,000 intlu Collagenase (Santyl) 1 applic TOP DAILY [facility] Last Admin: 11/04/17 08:51 Dose: 1 appl Diltiazem HCl (Cardizem) 30 mg PO 0300,0900,1500,2100 [facility] Last Admin: 11/04/17 14:02 Dose: 30 mg Dimethicone (Proshield Plus Skin Protectant) 1 applic TOP Q8 [facility] Last Admin: 11/04/17 17:27 Dose: 1 applic Ferrous Gluconate (Fergon) 324 mg PO DAILY [facility] Last Admin: 11/04/17 08:46 Dose: 324 mg Furosemide (Lasix) 40 mg IVP DAILY [facility] Last Admin: 11/04/17 08:57 Dose: 40 mg Meropenem 500 mg/ Sodium (Chloride) 100 mls @ 100 mls/hr IVPB Q8 [facility] PRN Reason: Protocol Last Admin: 11/04/17 17:25 Dose: 100 mls/hr Metronidazole (Flagyl 500mg/100ml Ns) 100 mls @ 100 mls/hr IVPB Q8 [facility] PRN Reason: Protocol Last Admin: 11/04/17 17:32 Dose: 100 mls/hr Vancomycin HCl 1 gm/ Sodium (Chloride) 250 mls @ 166.667 mls/hr IVPB Q48H [facility] PRN Reason: Protocol Last Admin: 11/04/17 08:40 Dose: 166.667 mls/hr Lactobacillus Acidophilus (Bacid Acidophilus) 1 cap PO BID [facility] Last Admin: 11/04/17 17:32 Dose: 1 cap Lamotrigine (Lamictal) 50 mg PO Q12@0930,2130 [facility] Last Admin: 11/04/17 08:47 Dose: 50 mg Metoprolol Tartrate (Lopressor) 5 mg IVP Q6 [facility] Last Admin: 11/04/17 15:44 Dose: 5 mg Sildenafil Citrate (Revatio) 20 mg PO BID [facility] Last Admin: 11/04/17 17:25 Dose: 20 mg Spironolactone (Aldactone) 25 mg PO DAILY [facility] Last Admin: 11/04/17 08:48 Dose: 25 mg - Labs Labs: 11/04/17 04:30 11/04/17 06:30 PT 14.9 Seconds (9.8-13.1) H 10/29/17 04:20 INR 1.3 (0.9-1.2) H 10/29/17 04:20 APTT 34.4 Seconds (25.6-37.1) 10/26/17 12:30 - Constitutional Appears: Well - Head Exam Head Exam: ATRAUMATIC, NORMAL INSPECTION, NORMOCEPHALIC - Eye Exam Eye Exam: EOMI, Normal appearance, PERRL Pupil Exam: NORMAL ACCOMODATION, PERRL - ENT Exam ENT Exam: Mucous Membranes Moist, Normal Exam - Neck Exam Neck Exam: Full ROM, Normal Inspection. absent: Lymphadenopathy - Respiratory Exam Respiratory Exam: Clear to Ausculation Bilateral, NORMAL BREATHING PATTERN - Cardiovascular Exam Cardiovascular Exam: REGULAR RHYTHM, +S1, +S2, Murmur - GI/Abdominal Exam GI & Abdominal Exam: Soft, Normal Bowel Sounds. absent: Tenderness - Extremities Exam Extremities Exam: Full ROM, Normal Capillary Refill, Normal Inspection. absent : Joint Swelling, Pedal Edema - Back Exam Back Exam: NORMAL INSPECTION - Neurological Exam Neurological Exam: Alert, Awake, CN II-XII Intact, Oriented x3 - Psychiatric Exam Psychiatric exam: Normal Affect, Normal Mood - Skin Skin Exam: Dry, Intact, Normal Color, Warm Assessment and Plan (1) A-fib Status: Chronic (2) Acute on chronic diastolic (congestive) heart failure Status: Chronic (3) Acute respiratory failure with hypoxia Status: Acute (4) Altered mental status Status: Deleted (5) HTN (hypertension) Status: Deleted (6) Seizure disorder Status: Chronic (7) CANDELARIA (acute kidney injury) Status: Resolved (8) Encephalopathy Status: Acute (9) Hypothermia Status: Deleted (10) Pleural effusion, bilateral Status: Acute (11) Supratherapeutic international normalized ratio (INR) Status: Acute (12) Acute decompensated heart failure Status: Acute (13) Atrial fibrillation with RVR Status: Acute
--- NOTE | 2017-11-04 23:23 | CP.PCM.PN ---
Subjective - Date & Time of Evaluation Date of Evaluation: 11/04/17 Time of Evaluation: 22:00 - Subjective Subjective: Patient is responsive to me, smiley, positive eye to eye contact, answers OK when asked how is he doing. He has tachycardia above 100 at times, BP is 140/60, RR is 23 up to 27, His temperature is normal. There are no reported seizures, he is on Lamictal 50 mg Q 12 hrs,. The said she accepts the lamictal at 100 mg Q 12 hrs starting nest week. He is on Antibiotics for his infection and for his heart vegetations. Kidney function tests show an improvement of his Creatinine down to 0.8 while the BUN is 37. He has anemia. Objective - Vital Signs/Intake and Output Vital Signs (last 24 hours): Temp Pulse Resp BP Pulse Ox 98.5 F 88 23 133/63 100 11/04/17 16:00 11/04/17 20:34 11/04/17 20:34 11/04/17 20:34 11/04/17 20:34 Intake and Output: 11/04/17 11/05/17 18:59 06:59 Intake Total 1650 Output Total 1510 Balance 140 - Medications Medications: Current Medications Acetaminophen (Tylenol 650mg/20.3ml Solution Ud) 650 mg PO Q6 PRN PRN Reason: Temperature Last Admin: 11/01/17 09:32 Dose: 650 mg Apixaban (Eliquis) 2.5 mg PO BID [facility] PRN Reason: Protocol Last Admin: 11/04/17 17:25 Dose: 2.5 mg Cholecalciferol (Vitamin D) 5,000 intlu PO DAILY [facility] Last Admin: 11/04/17 08:51 Dose: 5,000 intlu Collagenase (Santyl) 1 applic TOP DAILY [facility] Last Admin: 11/04/17 08:51 Dose: 1 appl Diltiazem HCl (Cardizem) 30 mg PO 0300,0900,1500,2100 [facility] Last Admin: 11/04/17 20:34 Dose: 30 mg Dimethicone (Proshield Plus Skin Protectant) 1 applic TOP Q8 [facility] Last Admin: 11/04/17 17:27 Dose: 1 applic Ferrous Gluconate (Fergon) 324 mg PO DAILY [facility] Last Admin: 11/04/17 08:46 Dose: 324 mg Furosemide (Lasix) 40 mg IVP DAILY [facility] Last Admin: 11/04/17 08:57 Dose: 40 mg Meropenem 500 mg/ Sodium (Chloride) 100 mls @ 100 mls/hr IVPB Q8 [facility] PRN Reason: Protocol Last Admin: 11/04/17 17:25 Dose: 100 mls/hr Metronidazole (Flagyl 500mg/100ml Ns) 100 mls @ 100 mls/hr IVPB Q8 [facility] PRN Reason: Protocol Last Admin: 11/04/17 17:32 Dose: 100 mls/hr Vancomycin HCl 1 gm/ Sodium (Chloride) 250 mls @ 166.667 mls/hr IVPB Q48H [facility] PRN Reason: Protocol Last Admin: 11/04/17 08:40 Dose: 166.667 mls/hr Lactobacillus Acidophilus (Bacid Acidophilus) 1 cap PO BID [facility] Last Admin: 11/04/17 17:32 Dose: 1 cap Lamotrigine (Lamictal) 50 mg PO Q12@0930,2130 [facility] Last Admin: 11/04/17 20:34 Dose: 50 mg Metoprolol Tartrate (Lopressor) 5 mg IVP Q6 [facility] Last Admin: 11/04/17 15:44 Dose: 5 mg Sildenafil Citrate (Revatio) 20 mg PO BID [facility] Last Admin: 11/04/17 17:25 Dose: 20 mg Spironolactone (Aldactone) 25 mg PO DAILY [facility] Last Admin: 11/04/17 08:48 Dose: 25 mg - Labs Labs: 11/04/17 04:30 11/04/17 06:30 PT 14.9 Seconds (9.8-13.1) H 10/29/17 04:20 INR 1.3 (0.9-1.2) H 10/29/17 04:20 APTT 34.4 Seconds (25.6-37.1) 10/26/17 12:30 Assessment and Plan (1) CANDELARIA (acute kidney injury) Status: Resolved (2) Acute respiratory failure Status: Acute (3) Altered mental status Status: Deleted (4) Pleural effusion, bilateral Status: Acute (5) Pneumonia Status: Acute (6) Seizure disorder Status: Suspected (7) Encephalopathy Status: Acute
[2017-11-05] MEDS: metroNIDAZOLE 500mg/100ml NS 100 ML IVPB SCH ×3 (01:14→16:11)
[2017-11-05] MEDS: Meropenem 500 MG in Sodium Chloride 0.9% 100 ML IVPB SCH ×3 (01:14→16:11)
[2017-11-05] MEDS: Proshield Plus GEL TOP SCH ×3 (02:27→16:10)
[2017-11-05] MEDS: Metoprolol 1 mg/ml Inj IVP SCH ×4 (04:04→21:17)
[2017-11-05 05:41] LABS: BASO % 0.3 % (0.0-2.0); EOS # 0.1 K/uL (0.0-0.7); EOS % 1.4 % (0.0-4.0); HEMOGLOBIN 9.8 g/dL (12.0-18.0); LYMPH # 0.8 K/uL (1.0-4.3); LYMPH % 10.7 % (20.0-40.0); MEAN CELL VOLUME 95.5 fl (80.0-94.0); MEAN CORPUSCULAR HEMOGLOBIN 30.1 pg (27.0-31.0); MEAN CORPUSCULAR HGB CONC 31.5 g/dL (33.0-37.0); MEAN PLATELET VOLUME 7.5 fl (7.2-11.7); MONO # 0.7 K/uL (0.0-0.8); MONO % 9.6 % (0.0-10.0); NEUT # 5.5 K/uL (1.8-7.0); NRBC % 0.1 % (0.0-0.0); RBC 3.26 Mil/uL (4.40-5.90); RED CELL DISTRIBUTION WIDTH 23.1 % (11.5-14.5); WHITE BLOOD COUNT 7.1 K/uL (4.8-10.8)
[2017-11-05 05:55] LABS: ALB/GLOB RATIO 0.7 (1.0-2.1); ALBUMIN 2.7 g/dL (3.5-5.0); ALT/SGPT 32 U/L (21-72); AST/SGOT 22 U/L (17-59); BLOOD UREA NITROGEN 35 mg/dl (9-20); CALCIUM 8.1 mg/dL (8.4-10.2); GFR AFRICAN-AMERICAN > 60; GFR NON-AFRICAN AMERICAN > 60
[2017-11-05] MEDS ORDERED: Chlorhexidine Gluconate 1 APPL/PKT TP ONE (08:09)
[2017-11-05] MEDS: Cholecalciferol 1,000 INTLU TAB PO SCH (08:58)
[2017-11-05] MEDS: Sildenafil 20 MG TAB PO SCH ×2 (08:58→16:10)
[2017-11-05] MEDS: Santyl Collagenase OINTMENT TOP SCH (09:00)
[2017-11-05] MEDS: Lactobacillus Acidophilus 500 MU Cap PO SCH ×2 (09:02→16:12)
--- NOTE | 2017-11-05 13:53 | CP.PCM.PN ---
Subjective - Date & Time of Evaluation Date of Evaluation: 11/05/17 Time of Evaluation: 13:50 - Subjective Subjective: Clinically nonsignificant changes Vital signs stable Blood test reviewed Kidney function improving serum BUN/creatinine creatinine coming down. After stop Lasix for 1 or 2 days. Lasix resume at 40 mg daily keep monitoring Monitor intake and output and electrolyte The rest of the medical problem is noted with status of respiratory failure and acute kidney injury and pneumonia CVA remain as previously reported Objective - Vital Signs/Intake and Output Vital Signs (last 24 hours): Temp Pulse Resp BP Pulse Ox 97.6 F 91 H 23 139/75 100 11/05/17 12:00 11/05/17 12:00 11/05/17 12:12 11/05/17 12:00 11/05/17 12:00 Intake and Output: 11/05/17 11/05/17 06:59 18:59 Intake Total 500 170 Output Total 1550 Balance -1050 170 - Medications Medications: Current Medications Acetaminophen (Tylenol 650mg/20.3ml Solution Ud) 650 mg PO Q6 PRN PRN Reason: Temperature Last Admin: 11/01/17 09:32 Dose: 650 mg Apixaban (Eliquis) 2.5 mg PO BID [facility] PRN Reason: Protocol Last Admin: 11/05/17 08:57 Dose: 2.5 mg Cholecalciferol (Vitamin D) 5,000 intlu PO DAILY [facility] Last Admin: 11/05/17 08:58 Dose: 5,000 intlu Collagenase (Santyl) 1 applic TOP DAILY [facility] Last Admin: 11/05/17 09:00 Dose: 1 appl Diltiazem HCl (Cardizem) 30 mg PO 0300,0900,1500,2100 [facility] Last Admin: 11/05/17 08:56 Dose: 30 mg Dimethicone (Proshield Plus Skin Protectant) 1 applic TOP Q8 [facility] Last Admin: 11/05/17 09:00 Dose: 1 applic Ferrous Gluconate (Fergon) 324 mg PO DAILY [facility] Last Admin: 11/05/17 08:58 Dose: 324 mg Furosemide (Lasix) 40 mg IVP DAILY [facility] Last Admin: 11/05/17 09:02 Dose: 40 mg Meropenem 500 mg/ Sodium (Chloride) 100 mls @ 100 mls/hr IVPB Q8 [facility] PRN Reason: Protocol Last Admin: 11/05/17 08:59 Dose: 100 mls/hr Metronidazole (Flagyl 500mg/100ml Ns) 100 mls @ 100 mls/hr IVPB Q8 [facility] PRN Reason: Protocol Last Admin: 11/05/17 08:59 Dose: 100 mls/hr Vancomycin HCl 1 gm/ Sodium (Chloride) 250 mls @ 166.667 mls/hr IVPB Q48H [facility] PRN Reason: Protocol Last Admin: 11/04/17 08:40 Dose: 166.667 mls/hr Lactobacillus Acidophilus (Bacid Acidophilus) 1 cap PO BID [facility] Last Admin: 11/05/17 09:02 Dose: 1 cap Lamotrigine (Lamictal) 50 mg PO Q12@0930,2130 [facility] Last Admin: 11/05/17 08:57 Dose: 50 mg Metoprolol Tartrate (Lopressor) 5 mg IVP Q6 [facility] Last Admin: 11/05/17 09:42 Dose: 5 mg Sildenafil Citrate (Revatio) 20 mg PO BID [facility] Last Admin: 11/05/17 08:58 Dose: 20 mg Spironolactone (Aldactone) 25 mg PO DAILY [facility] Last Admin: 11/05/17 08:56 Dose: 25 mg - Labs Labs: 11/05/17 05:10 11/05/17 05:10 PT 14.9 Seconds (9.8-13.1) H 10/29/17 04:20 INR 1.3 (0.9-1.2) H 10/29/17 04:20 APTT 34.4 Seconds (25.6-37.1) 10/26/17 12:30 Assessment and Plan (1) CANDELARIA (acute kidney injury) Status: Resolved (2) Altered mental status Status: Deleted (3) Diastolic CHF, acute on chronic Status: Acute (4) Hypernatremia Status: Acute
--- NOTE | 2017-11-05 16:06 | CP.PCM.PN ---
Subjective - Date & Time of Evaluation Date of Evaluation: 11/05/17 Time of Evaluation: 13:00 - Subjective Subjective: Hospitalist covering for Dr. Escamilla. Patient is able to tell me that he is feeling better today. Continues to be more awake and alert. Requires frequent suctioning. No reported issues overnight. Hemodynamically stable, afebrile. Objective - Vital Signs/Intake and Output Vital Signs (last 24 hours): Temp Pulse Resp BP Pulse Ox 97.6 F 91 H 23 139/75 100 11/05/17 12:00 11/05/17 12:00 11/05/17 12:12 11/05/17 12:00 11/05/17 12:00 Intake and Output: 11/05/17 11/05/17 06:59 18:59 Intake Total 500 170 Output Total 1550 Balance -1050 170 - Medications Medications: Current Medications Acetaminophen (Tylenol 650mg/20.3ml Solution Ud) 650 mg PO Q6 PRN PRN Reason: Temperature Last Admin: 11/01/17 09:32 Dose: 650 mg Apixaban (Eliquis) 2.5 mg PO BID [facility] PRN Reason: Protocol Last Admin: 11/05/17 08:57 Dose: 2.5 mg Cholecalciferol (Vitamin D) 5,000 intlu PO DAILY [facility] Last Admin: 11/05/17 08:58 Dose: 5,000 intlu Collagenase (Santyl) 1 applic TOP DAILY [facility] Last Admin: 11/05/17 09:00 Dose: 1 appl Diltiazem HCl (Cardizem) 30 mg PO 0300,0900,1500,2100 [facility] Last Admin: 11/05/17 15:52 Dose: 30 mg Dimethicone (Proshield Plus Skin Protectant) 1 applic TOP Q8 [facility] Last Admin: 11/05/17 09:00 Dose: 1 applic Ferrous Gluconate (Fergon) 324 mg PO DAILY [facility] Last Admin: 11/05/17 08:58 Dose: 324 mg Furosemide (Lasix) 40 mg IVP DAILY [facility] Last Admin: 11/05/17 09:02 Dose: 40 mg Meropenem 500 mg/ Sodium (Chloride) 100 mls @ 100 mls/hr IVPB Q8 [facility] PRN Reason: Protocol Last Admin: 11/05/17 08:59 Dose: 100 mls/hr Metronidazole (Flagyl 500mg/100ml Ns) 100 mls @ 100 mls/hr IVPB Q8 [facility] PRN Reason: Protocol Last Admin: 11/05/17 08:59 Dose: 100 mls/hr Vancomycin HCl 1 gm/ Sodium (Chloride) 250 mls @ 166.667 mls/hr IVPB Q48H [facility] PRN Reason: Protocol Last Admin: 11/04/17 08:40 Dose: 166.667 mls/hr Lactobacillus Acidophilus (Bacid Acidophilus) 1 cap PO BID [facility] Last Admin: 11/05/17 09:02 Dose: 1 cap Lamotrigine (Lamictal) 50 mg PO Q12@0930,2130 [facility] Last Admin: 11/05/17 08:57 Dose: 50 mg Metoprolol Tartrate (Lopressor) 5 mg IVP Q6 [facility] Last Admin: 11/05/17 15:52 Dose: 5 mg Sildenafil Citrate (Revatio) 20 mg PO BID [facility] Last Admin: 11/05/17 08:58 Dose: 20 mg Spironolactone (Aldactone) 25 mg PO DAILY [facility] Last Admin: 11/05/17 08:56 Dose: 25 mg - Labs Labs: 11/05/17 05:10 11/05/17 05:10 PT 14.9 Seconds (9.8-13.1) H 10/29/17 04:20 INR 1.3 (0.9-1.2) H 10/29/17 04:20 APTT 34.4 Seconds (25.6-37.1) 10/26/17 12:30 - Additional Findings Additional findings: Physical exam: Constitutional- awake and alert, arousable to voice Head- NCAT, PERRL Eye- PERRL, normal accommodation ENT- normal exam, MMM. 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 As per , she feels patient had clonic movements several days ago. Patient was found to be Hypotermic with SOB associated with cough unable to bring out phlegms, also with CXr showing bilateral pleural effusions and Infiltrates . INR 5.6, PTT 68.0, PT 65.9 His hospital course has been complicated by hypoxia requiring intubation, right pig tail catheter placement and left thoracentesis for pleural effusions. He has been followed by neuro , pulmonary , ID, nephro and cardiology . He has been on broad spectrum antibiotics for Aspiration Pneumonia and has been diuresing well and developed CANDELARIA and hypernatremia. At present more awake and alert , following commands. Tolerating High flow during the day 40 LPM FIO2 50 % and Bipap at night.Sputum cultures positive for Pseudomonas aerugoinosa. 1. Acute respiratory failure with hypoxia and hypercapnia etiology multi factorial -- pleural effusion , CHF, pneumonia was intubated and now extubated tolerating High Flow w Vapotherm 40 LPM on FIO2 50 % and BIPAP at night s/p multiple thoracentheis with pig tail placement . Left pigtail with no drainage yesterday Sputum cx positive for pseudomonas ID on consult. On meropenem and vanco IV as well as Flagyl. Continue duonebs CXR showed improvement of infiltrates and minimal pleural effusion Aspiration precautions since patient failed swallow eval NGT in place with feeding Vital 1.0 with no residuals. refused peg placement pulmonary on consult following 2. Aspiration pneumonia Acute ID and pulmonary on consult s/p BAL sputum cx positive for Pseudomonas On Vanco and meropenem 3.Altered mental status-- improving unclear etiology possibly Metabolic encephalopathy due to hypoxemia, pneumonia or related to uncontrolled seizures CT head showed no acute pathology Neurology consulted Lamictal 50 mg po Q12 hours seizure precautions Today more awake and alert , following commands Continue Bipap and High flow as ordered on IV antibiotics 4. Pleural effusion, bilateral s/p mulitiple thoracenthesis both right and left by IR and chest tube placement by CTS At present left pig tail in place with no output last 24 hours. pulmonary and CTS on consult- May be able to pull left pigtail soon? 5. Diastolic CHF, acute on chronic with pulmonary hypertension Acute cardiology on board Diuretics on hold due to worsening renal function and hypernatremia low salt diet on Sildenafil for pulmonary hypertension Continue Lasix as per nephrology Continue spironolactone 6. A-fib Chronic , better controlled cardiology on consult Dr. Castro s/p STEVEN and elective cardioversion on cardizem and metoprolol IV On Eliquis for anticoagulation 7.CANDELARIA (acute kidney injury)- resolving stable improved Nephrology on consult 8. Hypernatremia resolved due to dehydration low salt diet 9. HTN (hypertension) Chronic , controlled on Metoprolol, cardizem and spironolactone 10. Hx of seizure disorder Chronic neurology consulted increased lamictal dose to 50 Q12 11. Anemia of chronic disease- improving slowly Hgb 9.8 today, stable Monitor for now on ferrous sulfate 12.Coumadin toxicity INR was 5.6 on admission Coumadin on hold started Eliquis for anticoagulation 13. SUSAN (obstructive sleep apnea) Chronic BIPAP at night 14. C diff antigen positive Dr. Winslow on consultation Flagyl added 15. Failed swallow eval NGT in place with feeding Aspiration precautions refused peg 16. Frailty/ poor ,guarded prognosis patient is full code is surrogate decision maker 17. Vitamin D deficiency on ergocalciferol 18. DVT prophylaxis Eliquis
--- NOTE | 2017-11-05 17:01 | CP.PCM.PN ---
Subjective - Date & Time of Evaluation Date of Evaluation: 11/05/17 Time of Evaluation: 17:00 - Subjective Subjective: awake and responding normally today Objective - Vital Signs/Intake and Output Vital Signs (last 24 hours): Temp Pulse Resp BP Pulse Ox 98.8 F 113 H 24 131/89 100 11/05/17 16:00 11/05/17 16:00 11/05/17 16:35 11/05/17 16:00 11/05/17 16:00 Intake and Output: 11/05/17 11/05/17 06:59 18:59 Intake Total 500 170 Output Total 1550 Balance -1050 170 - Medications Medications: Current Medications Acetaminophen (Tylenol 650mg/20.3ml Solution Ud) 650 mg PO Q6 PRN PRN Reason: Temperature Last Admin: 11/01/17 09:32 Dose: 650 mg Apixaban (Eliquis) 2.5 mg PO BID [facility] PRN Reason: Protocol Last Admin: 11/05/17 16:10 Dose: 2.5 mg Cholecalciferol (Vitamin D) 5,000 intlu PO DAILY [facility] Last Admin: 11/05/17 08:58 Dose: 5,000 intlu Collagenase (Santyl) 1 applic TOP DAILY [facility] Last Admin: 11/05/17 09:00 Dose: 1 appl Diltiazem HCl (Cardizem) 30 mg PO 0300,0900,1500,2100 [facility] Last Admin: 11/05/17 15:52 Dose: 30 mg Dimethicone (Proshield Plus Skin Protectant) 1 applic TOP Q8 [facility] Last Admin: 11/05/17 16:10 Dose: 1 applic Ferrous Gluconate (Fergon) 324 mg PO DAILY [facility] Last Admin: 11/05/17 08:58 Dose: 324 mg Furosemide (Lasix) 40 mg IVP DAILY [facility] Last Admin: 11/05/17 09:02 Dose: 40 mg Meropenem 500 mg/ Sodium (Chloride) 100 mls @ 100 mls/hr IVPB Q8 [facility] PRN Reason: Protocol Last Admin: 11/05/17 16:11 Dose: 100 mls/hr Metronidazole (Flagyl 500mg/100ml Ns) 100 mls @ 100 mls/hr IVPB Q8 [facility] PRN Reason: Protocol Last Admin: 11/05/17 16:11 Dose: 100 mls/hr Vancomycin HCl 1 gm/ Sodium (Chloride) 250 mls @ 166.667 mls/hr IVPB Q48H [facility] PRN Reason: Protocol Last Admin: 11/04/17 08:40 Dose: 166.667 mls/hr Lactobacillus Acidophilus (Bacid Acidophilus) 1 cap PO BID [facility] Last Admin: 11/05/17 16:12 Dose: 1 cap Lamotrigine (Lamictal) 50 mg PO Q12@0930,2130 [facility] Last Admin: 11/05/17 08:57 Dose: 50 mg Metoprolol Tartrate (Lopressor) 5 mg IVP Q6 [facility] Last Admin: 11/05/17 15:52 Dose: 5 mg Sildenafil Citrate (Revatio) 20 mg PO BID [facility] Last Admin: 11/05/17 16:10 Dose: 20 mg Spironolactone (Aldactone) 25 mg PO DAILY [facility] Last Admin: 11/05/17 08:56 Dose: 25 mg - Labs Labs: 11/05/17 05:10 11/05/17 05:10 PT 14.9 Seconds (9.8-13.1) H 10/29/17 04:20 INR 1.3 (0.9-1.2) H 10/29/17 04:20 APTT 34.4 Seconds (25.6-37.1) 10/26/17 12:30 - Constitutional Appears: Well - Head Exam Head Exam: ATRAUMATIC, NORMAL INSPECTION, NORMOCEPHALIC - Eye Exam Eye Exam: EOMI, Normal appearance, PERRL Pupil Exam: NORMAL ACCOMODATION, PERRL - ENT Exam ENT Exam: Mucous Membranes Moist, Normal Exam - Neck Exam Neck Exam: Full ROM, Normal Inspection. absent: Lymphadenopathy - Respiratory Exam Respiratory Exam: Clear to Ausculation Bilateral, Rales, NORMAL BREATHING PATTERN - Cardiovascular Exam Cardiovascular Exam: Irregular Rhythm, +S1, +S2, Murmur - GI/Abdominal Exam GI & Abdominal Exam: Soft, Normal Bowel Sounds. absent: Tenderness - Extremities Exam Extremities Exam: Full ROM, Normal Capillary Refill, Normal Inspection. absent : Joint Swelling, Pedal Edema - Back Exam Back Exam: NORMAL INSPECTION - Neurological Exam Neurological Exam: Alert, Awake, CN II-XII Intact - Psychiatric Exam Psychiatric exam: Normal Affect, Normal Mood - Skin Skin Exam: Dry, Intact, Normal Color, Warm Assessment and Plan (1) A-fib Status: Chronic (2) Acute on chronic diastolic (congestive) heart failure Status: Chronic (3) Acute respiratory failure with hypoxia Status: Acute (4) Altered mental status Status: Deleted (5) HTN (hypertension) Status: Deleted (6) Seizure disorder Status: Chronic (7) CANDELARIA (acute kidney injury) Status: Resolved (8) Encephalopathy Status: Acute (9) Hypothermia Status: Deleted (10) Pleural effusion, bilateral Status: Acute (11) Supratherapeutic international normalized ratio (INR) Status: Acute (12) Acute decompensated heart failure Status: Acute (13) Atrial fibrillation with RVR Status: Acute
--- NOTE | 2017-11-05 22:42 | CP.PCM.PN ---
Subjective - Date & Time of Evaluation Date of Evaluation: 11/05/17 Time of Evaluation: 21:20 - Subjective Subjective: Patient is getting more alert and is able to answer questions, saying he is OK. BUN is 35 and Creatinine is 0.7 after stopping Lasix temporarily. Lasix is resumed now. He is on Po Lamicrtal 50 mg q 12 HRS. The who objected the incresase of Lamictal to 100 mg Q 12 hrs, is convinced now to increase Lamictal to 100 mg Q 12 hrs. She will wait until Dr Escamilla is back. There is no seizures. There is no significant Pleural Effusion seen on CXR. His breathing is better. Objective - Vital Signs/Intake and Output Vital Signs (last 24 hours): Temp Pulse Resp BP Pulse Ox 98.8 F 75 22 138/77 100 11/05/17 16:00 11/05/17 21:17 11/05/17 20:30 11/05/17 21:17 11/05/17 20:16 Intake and Output: 11/05/17 11/06/17 18:59 06:59 Intake Total 890 170 Output Total 1300 Balance -410 170 - Medications Medications: Current Medications Acetaminophen (Tylenol 650mg/20.3ml Solution Ud) 650 mg PO Q6 PRN PRN Reason: Temperature Last Admin: 11/01/17 09:32 Dose: 650 mg Apixaban (Eliquis) 2.5 mg PO BID [facility] PRN Reason: Protocol Last Admin: 11/05/17 16:10 Dose: 2.5 mg Cholecalciferol (Vitamin D) 5,000 intlu PO DAILY [facility] Last Admin: 11/05/17 08:58 Dose: 5,000 intlu Collagenase (Santyl) 1 applic TOP DAILY [facility] Last Admin: 11/05/17 09:00 Dose: 1 appl Diltiazem HCl (Cardizem) 30 mg PO 0300,0900,1500,2100 [facility] Last Admin: 11/05/17 20:16 Dose: 30 mg Dimethicone (Proshield Plus Skin Protectant) 1 applic TOP Q8 [facility] Last Admin: 11/05/17 16:10 Dose: 1 applic Ferrous Gluconate (Fergon) 324 mg PO DAILY [facility] Last Admin: 11/05/17 08:58 Dose: 324 mg Furosemide (Lasix) 40 mg IVP DAILY [facility] Last Admin: 12/26/17 09:02 Dose: 40 mg Meropenem 500 mg/ Sodium (Chloride) 100 mls @ 100 mls/hr IVPB Q8 [facility] PRN Reason: Protocol Last Admin: 11/05/17 16:11 Dose: 100 mls/hr Metronidazole (Flagyl 500mg/100ml Ns) 100 mls @ 100 mls/hr IVPB Q8 [facility] PRN Reason: Protocol Last Admin: 11/05/17 16:11 Dose: 100 mls/hr Vancomycin HCl 1 gm/ Sodium (Chloride) 250 mls @ 166.667 mls/hr IVPB Q48H [facility] PRN Reason: Protocol Last Admin: 11/04/17 08:40 Dose: 166.667 mls/hr Lactobacillus Acidophilus (Bacid Acidophilus) 1 cap PO BID [facility] Last Admin: 11/05/17 16:12 Dose: 1 cap Lamotrigine (Lamictal) 50 mg PO Q12@0930,2130 [facility] Last Admin: 11/05/17 21:15 Dose: 50 mg Metoprolol Tartrate (Lopressor) 5 mg IVP Q6 [facility] Last Admin: 11/05/17 21:17 Dose: 5 mg Sildenafil Citrate (Revatio) 20 mg PO BID [facility] Last Admin: 11/05/17 16:10 Dose: 20 mg Spironolactone (Aldactone) 25 mg PO DAILY [facility] Last Admin: 11/05/17 08:56 Dose: 25 mg - Labs Labs: 11/05/17 05:10 11/05/17 05:10 PT 14.9 Seconds (9.8-13.1) H 10/29/17 04:20 INR 1.3 (0.9-1.2) H 10/29/17 04:20 APTT 34.4 Seconds (25.6-37.1) 10/26/17 12:30 Assessment and Plan (1) CANDELARIA (acute kidney injury) Status: Resolved (2) Acute respiratory failure Status: Acute (3) Altered mental status Status: Deleted (4) Pleural effusion, bilateral Status: Acute (5) Pneumonia Status: Acute (6) Seizure disorder Status: Suspected (7) Encephalopathy Status: Acute
[2017-11-06] MEDS: metroNIDAZOLE 500mg/100ml NS 100 ML IVPB SCH ×3 (00:33→16:58)
[2017-11-06] MEDS: Proshield Plus GEL TOP SCH ×3 (00:34→17:04)
[2017-11-06] MEDS: Meropenem 500 MG in Sodium Chloride 0.9% 100 ML IVPB SCH ×3 (00:35→17:53)
[2017-11-06] MEDS: Metoprolol 1 mg/ml Inj IVP SCH ×4 (03:10→21:58)
[2017-11-06 06:21] LABS: HEMOGLOBIN 9.3 g/dL (12.0-18.0); MEAN CELL VOLUME 95.7 fl (80.0-94.0); MEAN CORPUSCULAR HGB CONC 32.3 g/dL (33.0-37.0); RBC 3.01 Mil/uL (4.40-5.90); RED CELL DISTRIBUTION WIDTH 22.9 % (11.5-14.5); WHITE BLOOD COUNT 7.8 K/uL (4.8-10.8)
[2017-11-06 06:26] LABS: BLOOD UREA NITROGEN 37 mg/dl (9-20); CALCIUM 8.3 mg/dL (8.4-10.2); GFR AFRICAN-AMERICAN > 60; GFR NON-AFRICAN AMERICAN > 60
--- NOTE | 2017-11-06 07:28 | CP.CCUPN ---
CCU Subjective - Physician Review Subjective (Free Text): 10/01/17 16:03 The patient was Seen and examined by me at the bedside, Medical records reviewed and Management issues were discussed and formulated with the house staff. 77 Years old Male with Multiple medical conditions including Atrial Fibrillation (on coumadin), CHF, CVA, HTN, Peripheral Edema, Seizures, Sleep Apnea, TIA Who was brought by EMS along with his to the Emergency Department for AMS Per , she was told by Dr. Escamilla to come to ED for "observation" She states that he has been on antibiotics for cough for 2 days and now develop hallucination secondary to antibiotics. In the ER he was very hypothermic, lethargic but respond to basic commands CXR showing bilateral pleural effusion and bibasilar opacity Tachypnea, placed on 50% VM Blood culture drawn and Received one dose of IV Rocephin and Zithromax Admitted to the ICU for Acute hypercarbic and Hypoxemic respiratory failure and severe sepsis Chest CT scan revealed moderate bilateral pleural effusion with atelectasis PT also had Elevated INR, received TOTAL 4U FFP 09/24, Underwent Left (8 fr) pig tail placement with about 500 serious fluid drained 09/25, Underwent Right (8 fr) pig tail placement and Left CT removed Right pig tail not functioning and Patient Underwent US guided placement of a right chest tube, 8 fr today Also Underwent US guided dual lumen picc placement via the right basilic vein 10/16, Underwent STEVEN with elective cardioversion (negative for clot) 10/14, US guided left thoracentesis 10/30, Underwent 8 fr pigtail drainage catheter placement left chest. Evaluated by Speach therapy, deemed high risk for aspiration and will be re- evaluated Evaluated by PT/OT 11/06/17 13:04 Today he is more awake, and interactive, (Lamictal dose was decreased to 50 mg Q 12H) Evaluated by wound care Comfortable, NAD Clinically improving and hemodynamically stable No Vasopressors Patient stable on high flow O2 supplement alternating with nocturnal BIPAP Last 24H I&O 0/1840 Afebrile A-Fib on monitor, HR controlled Tolerating tube feeding AM Labs,showing stable renal function and no leucocytosis CCU Objective - Vital Signs / Intake & Output Vital Signs (Last 4 hours): Vital Signs Temp Pulse Resp BP Pulse Ox 11/06/17 06:00 76 20 130/77 100 11/06/17 05:32 18 11/06/17 05:00 90 11/06/17 04:00 98.5 F 84 21 142/79 100 Intake and Output (Last 8hrs): Intake & Output 11/05/17 11/06/17 11/06/17 22:59 06:59 14:59 Intake Total 450 860 Output Total 300 540 Balance 150 320 Intake: Intake, Piggyback 200 Tube Feeding 350 560 Free Water Flush 100 100 Output: Chest Tube Drainage 20 Left Upper Posterior 20 Chest Drainage 0 Left Chest 0 Urine 300 500 Urethral (Wang) 300 500 Stool 20 Other: # Bowel Movements 1 - Physical Exam Head: Positive for: Atraumatic, Normocephalic, Other (NG tube) Pupils: Positive for: PERRL, Sluggish Extroacular Muscles: Positive for: EOMI Conjunctiva: Positive for: Normal. Negative for: Icteric Ears: Positive for: Normal Mouth: Positive for: Moist Mucous Membranes Pharnyx: Negative for: ERYTHEMA Neck: Positive for: Normal Range of Motion. Negative for: JVD Respiratory/Chest: Positive for: Good Air Exchange, Respiratory Distress, Decreased Breath Sounds, Rhonchi (upper airway rhonchi), Tachypneic. Negative for: Accessory Muscle Use, Wheezes Cardiovascular: Positive for: Murmurs, Irregular Rhythm, Peripheal Pulses Present, Tachycardic. Negative for: Normal S1, S2, Rub Abdomen: Positive for: Normal Bowel Sounds. Negative for: Tenderness, Distention, Peritoneal Signs Upper Extremity: Positive for: Edema Lower Extremity: Positive for: Edema, NORMAL PULSES. Negative for: CALF TENDERNESS, Cyanosis Neurological: Positive for: Other (withdraws to deep pain) Skin: Positive for: Warm, Dry. Negative for: Rashes Psychiatric: Positive for: Alert, Lethargic. Negative for: Oriented x 3 - Medications Active Medications: Active Medications Generic Name Dose Route Start Last Admin Trade Name Freq PRN Reason Stop Dose Admin Acetaminophen 650 mg 10/25/17 16:16 11/01/17 09:32 Tylenol 650mg/20.3ml Solution Ud PO 650 mg Q6 PRN Administration Temperature Apixaban 2.5 mg 10/30/17 17:00 11/05/17 16:10 Eliquis PO 2.5 mg BID [facility] Administration Protocol Cholecalciferol 5,000 intlu 10/18/17 09:00 11/05/17 08:58 Vitamin D PO 5,000 intlu DAILY [facility] Administration Collagenase 1 applic 11/01/17 09:00 11/05/17 09:00 Santyl TOP 1 appl DAILY [facility] Administration Diltiazem HCl 30 mg 10/18/17 03:00 11/06/17 03:02 Cardizem PO 30 mg 0300,0900,1500,2100 [facility] Administration Dimethicone 1 applic 10/23/17 09:00 11/06/17 00:34 Proshield Plus Skin Protectant TOP 1 applic Q8 [facility] Administration Ferrous Gluconate 324 mg 10/24/17 09:00 11/05/17 08:58 Fergon PO 324 mg DAILY [facility] Administration Furosemide 40 mg 11/04/17 09:00 11/05/17 09:02 Lasix IVP 40 mg DAILY [facility] Administration Meropenem 500 mg/ Sodium 100 mls @ 100 mls/hr 10/31/17 12:30 11/06/17 00:35 Chloride IVPB 100 mls/hr Q8 [facility] Administration Protocol Metronidazole 100 mls @ 100 mls/hr 11/01/17 17:00 11/06/17 00:33 Flagyl 500mg/100ml Ns IVPB 100 mls/hr Q8 [facility] Administration Protocol Vancomycin HCl 1 gm/ Sodium 250 mls @ 166.667 mls/hr 11/02/17 09:00 11/04/17 08:40 Chloride IVPB 166.667 mls/hr Q48H [facility] Administration Protocol Lactobacillus Acidophilus 1 cap 10/08/17 09:00 11/05/17 16:12 Bacid Acidophilus PO 1 cap BID [facility] Administration Lamotrigine 50 mg 10/31/17 21:30 11/05/17 21:15 Lamictal PO 50 mg Q12@0930,2130 [facility] Administration Metoprolol Tartrate 5 mg 10/31/17 23:21 11/06/17 03:10 Lopressor IVP 5 mg Q6 [facility] Administration Sildenafil Citrate 20 mg 11/01/17 09:00 11/05/17 16:10 Revatio PO 20 mg BID [facility] Administration Spironolactone 25 mg 10/24/17 19:00 11/05/17 08:56 Aldactone PO 25 mg DAILY [facility] Administration - Patient Studies Lab Studies: Lab Studies 11/06/17 11/06/17 Range/Units 05:15 05:15 WBC 7.8 (4.8-10.8) K/uL RBC 3.01 L (4.40-5.90) Mil/uL Hgb 9.3 L (12.0-18.0) g/dL Hct 28.8 L (35.0-51.0) % MCV 95.7 H (80.0-94.0) fl MCH 31.0 (27.0-31.0) pg MCHC 32.3 L (33.0-37.0) g/dL RDW 22.9 H (11.5-14.5) % Plt Count 441 H (130-400) K/uL Sodium 137 (132-148) mmol/l Potassium 5.5 H (3.6-5.0) MMOL/L Chloride 99 (98-107) mmol/L Carbon Dioxide 37 H (22-30) mmol/L Anion Gap 7 L (10-20) BUN 37 H (9-20) mg/dl Creatinine 0.7 L (0.8-1.5) mg/dl Est GFR ( Amer) > 60 Est GFR (Non-Af Amer) > 60 Random Glucose 124 H (75-110) mg/dL Calcium 8.3 L (8.4-10.2) mg/dL Laboratory Results - last 24 hr 11/06/17 11/06/17 05:15 05:15 WBC 7.8 RBC 3.01 L Hgb 9.3 L Hct 28.8 L MCV 95.7 H MCH 31.0 MCHC 32.3 L RDW 22.9 H Plt Count 441 H Sodium 137 Potassium 5.5 H Chloride 99 Carbon Dioxide 37 H Anion Gap 7 L BUN 37 H Creatinine 0.7 L Est GFR ( Amer) > 60 Est GFR (Non-Af Amer) > 60 Random Glucose 124 H Calcium 8.3 L Fingerstick Blood Sugar Results: 83 Assessment/Plan (1) Acute respiratory failure with hypoxia Current Visit: Yes Status: Acute Priority: High Comment: Acute hypercarbic and Hypoxemic respiratory failure secondary to likely aspiration pneumonia with pleural effusion in the setting of severe Respiratory muscle weakness Continue with ICU care for hemodynamic and Respiratory monitoring Successfully extubated IV Vancomycin, Meropenem and Acyclovir Gentle Diuresis with Aldactone, lasix on hold Strict I&O, negative fluid balance Aggressive pulmonary toilet, chest PT, suctioning nebulizer treatment Maintain aspiration precautions GI/DVT PPX (2) CANDELARIA (acute kidney injury) Current Visit: Yes Status: Deleted Priority: High Comment: Improved renal function. Off all nephrotoxic medications Renally adjust medication dose (3) Altered mental status Current Visit: Yes Status: Deleted Priority: High Comment: More awake, interactive Toxic/metabolic encephalopathy, multifactorial in the sitting of Acute hypercarbic and Hypoxemic respiratory failure, pneumonia, uremia , sepsis (4) Pleural effusion, bilateral Current Visit: Yes Status: Acute Priority: High Comment: corrected coagulopathy 09/24, Underwent Left pig tail placement today with about 500 serious fluid drained 09/25, Underwent Right (8 fr) pig tail placement and Left CT removed 10/01, US guided placement of a right chest tube, 8 fr 10/14, US guided left thoracentesis. 10/30, Underwent 8 fr pigtail drainage catheter placement left chest. (5) A-fib Current Visit: No Status: Chronic Priority: High Comment: Continue IV Metoprolol and cardiazem 30 mg PO Q 6H HR better Off AC for now (6) Seizure disorder Current Visit: No Status: Chronic Priority: Medium Comment: Continue LamoTRIgine [Lamictal] 25 mg BID
[2017-11-06] MEDS: Lactobacillus Acidophilus 500 MU Cap PO SCH ×2 (08:41→17:01)
[2017-11-06] MEDS: Sildenafil 20 MG TAB PO SCH ×2 (08:42→17:02)
[2017-11-06] MEDS: Cholecalciferol 1,000 INTLU TAB PO SCH (08:44)
[2017-11-06] MEDS: Santyl Collagenase OINTMENT TOP SCH (09:48)
--- NOTE | 2017-11-06 10:46 | CP.PCM.PN ---
<Yoon Garvin - Last Filed: 11/06/17 10:44> Subjective - Date & Time of Evaluation Date of Evaluation: 11/06/17 Time of Evaluation: 10:44 - Subjective Subjective: PGY2 rpogress note for cardiology, Dr. Castro Pt is seen and examined at bedside. at bedside. No acute events overnight. Pt is awake and answering questions. Denies having any CP, difficulty breathing or abdominal pain. 12 point ROS are negative except for the above mentioned. Left chest tube in place, drained 20 cc overnight. Objective - Vital Signs/Intake and Output Vital Signs (last 24 hours): Temp Pulse Resp BP Pulse Ox 98.3 F 73 17 123/75 100 11/06/17 08:00 11/06/17 10:00 11/06/17 10:00 11/06/17 10:00 11/06/17 10:00 Intake and Output: 11/06/17 11/06/17 06:59 18:59 Intake Total 1170 600 Output Total 540 Balance 630 600 - Medications Medications: Current Medications Acetaminophen (Tylenol 650mg/20.3ml Solution Ud) 650 mg PO Q6 PRN PRN Reason: Temperature Last Admin: 11/01/17 09:32 Dose: 650 mg Apixaban (Eliquis) 2.5 mg PO BID [facility] PRN Reason: Protocol Last Admin: 11/06/17 08:40 Dose: 2.5 mg Cholecalciferol (Vitamin D) 5,000 intlu PO DAILY [facility] Last Admin: 11/06/17 08:44 Dose: 5,000 intlu Collagenase (Santyl) 1 applic TOP DAILY [facility] Last Admin: 11/06/17 09:48 Dose: 1 appl Diltiazem HCl (Cardizem) 30 mg PO 0300,0900,1500,2100 [facility] Last Admin: 11/06/17 08:41 Dose: 30 mg Dimethicone (Proshield Plus Skin Protectant) 1 applic TOP Q8 [facility] Last Admin: 11/06/17 08:55 Dose: 1 applic Ferrous Gluconate (Fergon) 324 mg PO DAILY [facility] Last Admin: 11/06/17 08:40 Dose: 324 mg Furosemide (Lasix) 40 mg IVP DAILY [facility] Last Admin: 11/06/17 08:39 Dose: 40 mg Meropenem 500 mg/ Sodium (Chloride) 100 mls @ 100 mls/hr IVPB Q8 [facility] PRN Reason: Protocol Last Admin: 11/06/17 08:47 Dose: 100 mls/hr Metronidazole (Flagyl 500mg/100ml Ns) 100 mls @ 100 mls/hr IVPB Q8 [facility] PRN Reason: Protocol Last Admin: 11/06/17 09:47 Dose: 100 mls/hr Vancomycin HCl 1 gm/ Sodium (Chloride) 250 mls @ 166.667 mls/hr IVPB Q48H [facility] PRN Reason: Protocol Last Admin: 11/06/17 10:43 Dose: 166.667 mls/hr Lactobacillus Acidophilus (Bacid Acidophilus) 1 cap PO BID [facility] Last Admin: 11/06/17 08:41 Dose: 1 cap Lamotrigine (Lamictal) 50 mg PO Q12@0930,2130 [facility] Last Admin: 11/06/17 08:43 Dose: 50 mg Metoprolol Tartrate (Lopressor) 5 mg IVP Q6 [facility] Last Admin: 11/06/17 09:44 Dose: 5 mg Sildenafil Citrate (Revatio) 20 mg PO BID [facility] Last Admin: 11/06/17 08:42 Dose: 20 mg Spironolactone (Aldactone) 25 mg PO DAILY [facility] Last Admin: 11/06/17 08:42 Dose: 25 mg - Labs Labs: 11/06/17 05:15 11/06/17 05:15 PT 14.9 Seconds (9.8-13.1) H 10/29/17 04:20 INR 1.3 (0.9-1.2) H 10/29/17 04:20 APTT 34.4 Seconds (25.6-37.1) 10/26/17 12:30 - Constitutional Appears: Non-toxic, No Acute Distress - Head Exam Head Exam: ATRAUMATIC - Respiratory Exam Respiratory Exam: Rales. absent: Accessory Muscle Use, Wheezes - Cardiovascular Exam Cardiovascular Exam: REGULAR RHYTHM, +S1, +S2. absent: Gallop, Rubs, Murmur - GI/Abdominal Exam GI & Abdominal Exam: Soft, Normal Bowel Sounds. absent: Distended, Firm, Guarding, Rigid, Tenderness - Extremities Exam Extremities Exam: absent: Pedal Edema, Tenderness - Neurological Exam Neurological Exam: Alert, Awake, Oriented x3 - Psychiatric Exam Psychiatric exam: Normal Affect, Normal Mood - Skin Skin Exam: Dry, Intact, Normal Color, Warm Assessment and Plan - Assessment and Plan (Free Text) Assessment: (1) A-fib Continue cardizem and metoprolol Continue anticoagulation with eliquis (2) Aortic valve vegetation Currently on meropenem and vanco ID following (3) Acute respiratory failure with hypoxia likely 2/2 B/L effusion On HFNC (4) Pulmonary HTN Continue Revatio 20 mg BID (5) Acute decompensated heart failure Currently on Spirnolactone Echo shows EF of 60-65% (6) Left pleura effusion chest tube still in place. drained about 20 cc overnight Cont abx per ID Sputum grew pseudomonas (7) Encephalopathy Improving Neurology is following (8) Hyperkalemia Could be 2/2 spirnolactone. Will continue to monitor Case will be discussed with attending, Dr. Castro <Varun Castro - Last Filed: 11/06/17 12:57> Objective - Vital Signs/Intake and Output Vital Signs (last 24 hours): Temp Pulse Resp BP Pulse Ox 98.4 F 84 16 132/65 100 11/06/17 12:00 11/06/17 12:00 11/06/17 12:00 11/06/17 12:00 11/06/17 12:00 Intake and Output: 11/06/17 11/06/17 06:59 18:59 Intake Total 1170 600 Output Total 540 Balance 630 600 - Medications Medications: Current Medications Acetaminophen (Tylenol 650mg/20.3ml Solution Ud) 650 mg PO Q6 PRN PRN Reason: Temperature Last Admin: 11/01/17 09:32 Dose: 650 mg Apixaban (Eliquis) 2.5 mg PO BID [facility] PRN Reason: Protocol Last Admin: 11/06/17 08:40 Dose: 2.5 mg Cholecalciferol (Vitamin D) 5,000 intlu PO DAILY [facility] Last Admin: 11/06/17 08:44 Dose: 5,000 intlu Collagenase (Santyl) 1 applic TOP DAILY [facility] Last Admin: 11/06/17 09:48 Dose: 1 appl Diltiazem HCl (Cardizem) 30 mg PO 0300,0900,1500,2100 [facility] Last Admin: 11/06/17 08:41 Dose: 30 mg Dimethicone (Proshield Plus Skin Protectant) 1 applic TOP Q8 [facility] Last Admin: 11/06/17 08:55 Dose: 1 applic Ferrous Gluconate (Fergon) 324 mg PO DAILY [facility] Last Admin: 11/06/17 08:40 Dose: 324 mg Furosemide (Lasix) 40 mg IVP DAILY [facility] Last Admin: 11/06/17 08:39 Dose: 40 mg Meropenem 500 mg/ Sodium (Chloride) 100 mls @ 100 mls/hr IVPB Q8 [facility] PRN Reason: Protocol Last Admin: 11/06/17 08:47 Dose: 100 mls/hr Metronidazole (Flagyl 500mg/100ml Ns) 100 mls @ 100 mls/hr IVPB Q8 [facility] PRN Reason: Protocol Last Admin: 11/06/17 09:47 Dose: 100 mls/hr Vancomycin HCl 1 gm/ Sodium (Chloride) 250 mls @ 166.667 mls/hr IVPB Q48H [facility] PRN Reason: Protocol Last Admin: 11/06/17 10:43 Dose: 166.667 mls/hr Lactobacillus Acidophilus (Bacid Acidophilus) 1 cap PO BID [facility] Last Admin: 11/06/17 08:41 Dose: 1 cap Lamotrigine (Lamictal) 50 mg PO Q12@0930,2130 [facility] Last Admin: 11/06/17 08:43 Dose: 50 mg Metoprolol Tartrate (Lopressor) 5 mg IVP Q6 [facility] Last Admin: 11/06/17 09:44 Dose: 5 mg Sildenafil Citrate (Revatio) 20 mg PO BID [facility] Last Admin: 11/06/17 08:42 Dose: 20 mg Spironolactone (Aldactone) 25 mg PO DAILY [facility] Last Admin: 11/06/17 08:42 Dose: 25 mg - Labs Labs: 11/06/17 05:15 11/06/17 05:15 PT 14.9 Seconds (9.8-13.1) H 10/29/17 04:20 INR 1.3 (0.9-1.2) H 10/29/17 04:20 APTT 34.4 Seconds (25.6-37.1) 10/26/17 12:30 Assessment and Plan (1) A-fib Status: Chronic (2) Acute on chronic diastolic (congestive) heart failure Status: Chronic (3) Acute respiratory failure with hypoxia Status: Acute (4) Altered mental status Status: Deleted (5) HTN (hypertension) Status: Deleted (6) Seizure disorder Status: Chronic (7) CANDELARIA (acute kidney injury) Status: Resolved (8) Encephalopathy Status: Acute (9) Hypothermia Status: Deleted (10) Pleural effusion, bilateral Status: Acute (11) Supratherapeutic international normalized ratio (INR) Status: Acute (12) Acute decompensated heart failure Status: Acute (13) Atrial fibrillation with RVR Status: Acute Attending/Attestation - Attestation I have personally seen and examined this patient.: Yes I have fully participated in the care of the patient.: Yes I have reviewed all pertinent clinical information, including history, physical exam and plan: Yes
--- NOTE | 2017-11-06 12:34 | CP.PCM.PN ---
Subjective - Date & Time of Evaluation Date of Evaluation: 11/06/17 Time of Evaluation: 07:00 - Subjective Subjective: awake alert denies fever or headache folllows commands Objective - Vital Signs/Intake and Output Vital Signs (last 24 hours): Temp Pulse Resp BP Pulse Ox 98.4 F 84 16 132/65 100 11/06/17 12:00 11/06/17 12:00 11/06/17 12:00 11/06/17 12:00 11/06/17 12:00 Intake and Output: 11/06/17 11/06/17 06:59 18:59 Intake Total 1170 600 Output Total 540 Balance 630 600 - Medications Medications: Current Medications Acetaminophen (Tylenol 650mg/20.3ml Solution Ud) 650 mg PO Q6 PRN PRN Reason: Temperature Last Admin: 11/01/17 09:32 Dose: 650 mg Apixaban (Eliquis) 2.5 mg PO BID [facility] PRN Reason: Protocol Last Admin: 11/06/17 08:40 Dose: 2.5 mg Cholecalciferol (Vitamin D) 5,000 intlu PO DAILY [facility] Last Admin: 11/06/17 08:44 Dose: 5,000 intlu Collagenase (Santyl) 1 applic TOP DAILY [facility] Last Admin: 11/06/17 09:48 Dose: 1 appl Diltiazem HCl (Cardizem) 30 mg PO 0300,0900,1500,2100 [facility] Last Admin: 11/06/17 08:41 Dose: 30 mg Dimethicone (Proshield Plus Skin Protectant) 1 applic TOP Q8 [facility] Last Admin: 11/06/17 08:55 Dose: 1 applic Ferrous Gluconate (Fergon) 324 mg PO DAILY [facility] Last Admin: 11/06/17 08:40 Dose: 324 mg Furosemide (Lasix) 40 mg IVP DAILY [facility] Last Admin: 11/06/17 08:39 Dose: 40 mg Meropenem 500 mg/ Sodium (Chloride) 100 mls @ 100 mls/hr IVPB Q8 [facility] PRN Reason: Protocol Last Admin: 11/06/17 08:47 Dose: 100 mls/hr Metronidazole (Flagyl 500mg/100ml Ns) 100 mls @ 100 mls/hr IVPB Q8 [facility] PRN Reason: Protocol Last Admin: 11/06/17 09:47 Dose: 100 mls/hr Vancomycin HCl 1 gm/ Sodium (Chloride) 250 mls @ 166.667 mls/hr IVPB Q48H ON [facility] OF [facility] PRN Reason: Protocol Last Admin: 11/06/17 10:43 Dose: 166.667 mls/hr Lactobacillus Acidophilus (Bacid Acidophilus) 1 cap PO BID [facility] Last Admin: 11/06/17 08:41 Dose: 1 cap Lamotrigine (Lamictal) 50 mg PO Q12@0930,2130 [facility] Last Admin: 11/06/17 08:43 Dose: 50 mg Metoprolol Tartrate (Lopressor) 5 mg IVP Q6 [facility] Last Admin: 11/06/17 09:44 Dose: 5 mg Sildenafil Citrate (Revatio) 20 mg PO BID [facility] Last Admin: 11/06/17 08:42 Dose: 20 mg Spironolactone (Aldactone) 25 mg PO DAILY [facility] Last Admin: 11/06/17 08:42 Dose: 25 mg - Labs Labs: 11/06/17 05:15 11/06/17 05:15 PT 14.9 Seconds (9.8-13.1) H 10/29/17 04:20 INR 1.3 (0.9-1.2) H 10/29/17 04:20 APTT 34.4 Seconds (25.6-37.1) 10/26/17 12:30 - Constitutional Appears: Cachectic, Chronically Ill - Head Exam Head Exam: NORMOCEPHALIC - Eye Exam Eye Exam: PERRL. absent: Scleral icterus - ENT Exam ENT Exam: Mucous Membranes Dry - Neck Exam Neck Exam: absent: Lymphadenopathy - Respiratory Exam Respiratory Exam: Decreased Breath Sounds, Rhonchi - Cardiovascular Exam Cardiovascular Exam: REGULAR RHYTHM, +S1, +S2 - GI/Abdominal Exam GI & Abdominal Exam: Distended, Soft - Rectal Exam Rectal Exam: Deferred Assessment and Plan (1) CANDELRAIA (acute kidney injury) Status: Resolved (2) Acute respiratory failure Status: Acute (3) Altered mental status Status: Deleted (4) Diastolic CHF, acute on chronic Status: Acute (5) Pleural effusion, bilateral Status: Acute (6) Pneumonia Status: Acute (7) Aortic valve vegetation Status: Acute
--- NOTE | 2017-11-06 14:13 | CP.PCM.PN ---
Subjective - Date & Time of Evaluation Date of Evaluation: 11/06/17 Time of Evaluation: 11:00 - Subjective Subjective: Hospitalist covering for Dr. Escamilla. Patient awake and alert. Similar to previous. Requires frequent suctioning. Hemodynamically stable and afebrile. Left chest tube drained 20 cc overnight No new events. Objective - Vital Signs/Intake and Output Vital Signs (last 24 hours): Temp Pulse Resp BP Pulse Ox 98.4 F 86 11 L 143/62 100 11/06/17 12:00 11/06/17 14:00 11/06/17 14:00 11/06/17 14:00 11/06/17 14:00 Intake and Output: 11/06/17 11/06/17 06:59 18:59 Intake Total 1170 600 Output Total 540 Balance 630 600 - Medications Medications: Current Medications Acetaminophen (Tylenol 650mg/20.3ml Solution Ud) 650 mg PO Q6 PRN PRN Reason: Temperature Last Admin: 11/01/17 09:32 Dose: 650 mg Apixaban (Eliquis) 2.5 mg PO BID [facility] PRN Reason: Protocol Last Admin: 11/06/17 08:40 Dose: 2.5 mg Cholecalciferol (Vitamin D) 5,000 intlu PO DAILY [facility] Last Admin: 11/06/17 08:44 Dose: 5,000 intlu Collagenase (Santyl) 1 applic TOP DAILY [facility] Last Admin: 11/06/17 09:48 Dose: 1 appl Diltiazem HCl (Cardizem) 30 mg PO 0300,0900,1500,2100 [facility] Last Admin: 11/06/17 08:41 Dose: 30 mg Dimethicone (Proshield Plus Skin Protectant) 1 applic TOP Q8 [facility] Last Admin: 11/06/17 08:55 Dose: 1 applic Ferrous Gluconate (Fergon) 324 mg PO DAILY [facility] Last Admin: 11/06/17 08:40 Dose: 324 mg Furosemide (Lasix) 40 mg IVP DAILY [facility] Last Admin: 11/06/17 08:39 Dose: 40 mg Meropenem 500 mg/ Sodium (Chloride) 100 mls @ 100 mls/hr IVPB Q8 [facility] PRN Reason: Protocol Last Admin: 11/06/17 08:47 Dose: 100 mls/hr Metronidazole (Flagyl 500mg/100ml Ns) 100 mls @ 100 mls/hr IVPB Q8 [facility] PRN Reason: Protocol Last Admin: 11/06/17 09:47 Dose: 100 mls/hr Vancomycin HCl 1 gm/ Sodium (Chloride) 250 mls @ 166.667 mls/hr IVPB Q48H [facility] PRN Reason: Protocol Last Admin: 11/06/17 10:43 Dose: 166.667 mls/hr Lactobacillus Acidophilus (Bacid Acidophilus) 1 cap PO BID [facility] Last Admin: 11/06/17 08:41 Dose: 1 cap Lamotrigine (Lamictal) 50 mg PO Q12@0930,2130 [facility] Last Admin: 11/06/17 08:43 Dose: 50 mg Metoprolol Tartrate (Lopressor) 5 mg IVP Q6 [facility] Last Admin: 11/06/17 09:44 Dose: 5 mg Sildenafil Citrate (Revatio) 20 mg PO BID [facility] Last Admin: 11/06/17 08:42 Dose: 20 mg Spironolactone (Aldactone) 25 mg PO DAILY [facility] Last Admin: 11/06/17 08:42 Dose: 25 mg - Labs Labs: 11/06/17 05:15 11/06/17 05:15 PT 14.9 Seconds (9.8-13.1) H 10/29/17 04:20 INR 1.3 (0.9-1.2) H 10/29/17 04:20 APTT 34.4 Seconds (25.6-37.1) 10/26/17 12:30 - Additional Findings Additional findings: Physical exam: Constitutional- awake and alert, arousable to voice Head- NCAT, PERRL Eye- PERRL, normal accommodation ENT- normal exam, MMM. 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 As per , she feels patient had clonic movements several days ago. Patient was found to be Hypotermic with SOB associated with cough unable to bring out phlegms, also with CXr showing bilateral pleural effusions and Infiltrates . INR 5.6, PTT 68.0, PT 65.9 His hospital course has been complicated by hypoxia requiring intubation, right pig tail catheter placement and left thoracentesis for pleural effusions. He has been followed by neuro , pulmonary , ID, nephro and cardiology . He has been on broad spectrum antibiotics for Aspiration Pneumonia and has been diuresing well and developed CANDELARIA and hypernatremia. At present more awake and alert , following commands. Tolerating High flow during the day 40 LPM FIO2 50 % and Bipap at night.Sputum cultures positive for Pseudomonas aerugoinosa. 1. Acute respiratory failure with hypoxia and hypercapnia etiology multi factorial -- pleural effusion , CHF, pneumonia was intubated and now extubated tolerating High Flow w Vapotherm 40 LPM on FIO2 50 % and BIPAP at night s/p multiple thoracentheis with pig tail placement . Left pigtail with 20 cc drainage overnight ( no new drainage previous day) Sputum cx positive for pseudomonas ID on consult. On meropenem and vanco IV as well as Flagyl. Continue duonebs CXR showed improvement of infiltrates and minimal pleural effusion Aspiration precautions since patient failed swallow eval NGT in place with feeding Vital 1.0 with no residuals. refused peg placement pulmonary on consult following 2. Aspiration pneumonia Acute ID and pulmonary on consult s/p BAL sputum cx positive for Pseudomonas On Vanco and meropenem 3.Altered mental status-- improving unclear etiology possibly Metabolic encephalopathy due to hypoxemia, pneumonia or related to uncontrolled seizures CT head showed no acute pathology Neurology consulted Lamictal 50 mg po Q12 hours seizure precautions Today more awake and alert , following commands Continue Bipap and High flow as ordered on IV antibiotics 4. Pleural effusion, bilateral s/p mulitiple thoracenthesis both right and left by IR and chest tube placement by CTS At present left pig tail in place with no output last 24 hours. pulmonary and CTS on consult 5. Diastolic CHF, acute on chronic with pulmonary hypertension Acute. slowly improving cardiology on board Diuretics on hold due to worsening renal function and hypernatremia low salt diet on Sildenafil for pulmonary hypertension Continue Lasix as per nephrology Continue spironolactone 6. A-fib Chronic , better controlled cardiology on consult Dr. Castro s/p STEVEN and elective cardioversion on cardizem and metoprolol IV On Eliquis for anticoagulation 7.CANDELARIA (acute kidney injury)- resolving stable improved Nephrology on consult 8. Hypernatremia resolved due to dehydration low salt diet 9. HTN (hypertension) Chronic , controlled on Metoprolol, cardizem and spironolactone 10. Hx of seizure disorder Chronic neurology consulted lamictal dose 50mg Q12 hours 11. Anemia of chronic disease- improving slowly Hgb 9.8->9.3 Today, stable Monitor for now on ferrous sulfate 12.Coumadin toxicity INR was 5.6 on admission Coumadin on hold started Eliquis for anticoagulation 13. SUSAN (obstructive sleep apnea) Chronic BIPAP at night 14. C diff antigen positive Dr. Winslow on consultation Flagyl added 15. Failed swallow eval NGT in place with feeding Aspiration precautions refused peg 16. Frailty/ poor ,guarded prognosis patient is full code is surrogate decision maker 17. Vitamin D deficiency on ergocalciferol 18. DVT prophylaxis Eliquis
--- NOTE | 2017-11-06 16:09 | RAD ---
HISTORY: pleural effusion COMPARISON: 11/03/2017 FINDINGS: LUNGS: No interval consolidation. . Chin obscures left lung apex. PLEURA: Bilateral pleural effusions - fluid in the right minor fissure also inferred. The size of the right pleural effusion is probably slightly less than before. No pneumothorax. CARDIOVASCULAR: Cardiomegaly. Central pulmonary vascular congestion-similar OSSEOUS STRUCTURES: Thoracic spondylosis VISUALIZED UPPER ABDOMEN: Nasogastric tube courses beyond GE junction. Single lead pacemaker device in place. Right subclavian PICC line insertion tip cavoatrial junction Left basilar pigtail chest tube -appear similar OTHER FINDINGS: None. IMPRESSION: Interval decrease right pleural effusion left pleural effusion similar Cardiomegaly and central pulmonary venous congestion -similar Support lines as before -overall positions appear satisfactory
--- NOTE | 2017-11-06 23:50 | CP.PCM.PN ---
Subjective - Date & Time of Evaluation Date of Evaluation: 11/06/17 Time of Evaluation: 21:50 - Subjective Subjective: Patient is not in distress. Left side pleural effusion is minimal, the Pig Tail Chest tube drained 200 of fluid fro the left Pleura, Right sided Pleural effusion has almost healed. IMPRESSION of CXR: Interval decrease right pleural effusion left pleural effusion similar Cardiomegaly and central pulmonary venous congestion -similar Support lines as before -overall positions appear satisfactory No seizures are seen. He still has spells of Apnea at night time and BIPAP is helping his breathing at night time. He is On night time BIPAP. He is on Lamictal 50 mg q 12hrs and the refuses any increase in the dose of Lamictal. Objective - Vital Signs/Intake and Output Vital Signs (last 24 hours): Temp Pulse Resp BP Pulse Ox 98.5 F 86 20 126/61 100 11/06/17 16:00 11/06/17 21:58 11/06/17 21:01 11/06/17 21:58 11/06/17 21:01 Intake and Output: 11/06/17 11/07/17 18:59 06:59 Intake Total 1850 Output Total 1480 Balance 370 - Medications Medications: Current Medications Acetaminophen (Tylenol 650mg/20.3ml Solution Ud) 650 mg PO Q6 PRN PRN Reason: Temperature Last Admin: 11/01/17 09:32 Dose: 650 mg Cholecalciferol (Vitamin D) 5,000 intlu PO DAILY [facility] Last Admin: 11/06/17 08:44 Dose: 5,000 intlu Collagenase (Santyl) 1 applic TOP DAILY [facility] Last Admin: 11/06/17 09:48 Dose: 1 appl Diltiazem HCl (Cardizem) 30 mg PO 0300,0900,1500,2100 [facility] Last Admin: 11/06/17 21:01 Dose: 30 mg Dimethicone (Proshield Plus Skin Protectant) 1 applic TOP Q8 [facility] Last Admin: 11/06/17 17:04 Dose: 1 applic Ferrous Gluconate (Fergon) 324 mg PO DAILY [facility] Last Admin: 11/06/17 08:40 Dose: 324 mg Furosemide (Lasix) 40 mg IVP DAILY [facility] Last Admin: 11/06/17 08:39 Dose: 40 mg Meropenem 500 mg/ Sodium (Chloride) 100 mls @ 100 mls/hr IVPB Q8 [facility] PRN Reason: Protocol Last Admin: 11/06/17 17:53 Dose: 100 mls/hr Metronidazole (Flagyl 500mg/100ml Ns) 100 mls @ 100 mls/hr IVPB Q8 [facility] PRN Reason: Protocol Last Admin: 11/06/17 16:58 Dose: 100 mls/hr Vancomycin HCl 1 gm/ Sodium (Chloride) 250 mls @ 166.667 mls/hr IVPB Q48H [facility] PRN Reason: Protocol Last Admin: 11/06/17 10:43 Dose: 166.667 mls/hr Lactobacillus Acidophilus (Bacid Acidophilus) 1 cap PO BID [facility] Last Admin: 11/06/17 17:01 Dose: 1 cap Lamotrigine (Lamictal) 50 mg PO Q12@0930,2130 [facility] Last Admin: 11/06/17 21:02 Dose: 50 mg Metoprolol Tartrate (Lopressor) 5 mg IVP Q6 [facility] Last Admin: 11/06/17 21:58 Dose: 5 mg Sildenafil Citrate (Revatio) 20 mg PO BID [facility] Last Admin: 11/06/17 17:02 Dose: 20 mg Spironolactone (Aldactone) 25 mg PO DAILY [facility] Last Admin: 11/06/17 08:42 Dose: 25 mg - Labs Labs: 11/06/17 05:15 11/06/17 05:15 PT 14.9 Seconds (9.8-13.1) H 10/29/17 04:20 INR 1.3 (0.9-1.2) H 10/29/17 04:20 APTT 34.4 Seconds (25.6-37.1) 10/26/17 12:30 Assessment and Plan (1) CANDELARIA (acute kidney injury) Status: Resolved (2) Acute respiratory failure Assessment & Plan: Creatinine is down to 0,7 while the BUN level is high at 37/dl Status: Acute (3) Altered mental status Assessment & Plan: Not awake and focused most of the time.He is less lethargic in general. Status: Deleted (4) Pleural effusion, bilateral Assessment & Plan: Left side pleural effusion. His Left side pig tail Chest Catheter drained 20 ml over night. Status: Acute (5) Pneumonia Assessment & Plan: He has Left side pleural effusion, rt side pleural effusion looks controlled. Status: Acute (6) Seizure disorder Assessment & Plan: No seizures are seen clinically. He has an abnormal EEG showing a focus of Seizures. Status: Suspected (7) Encephalopathy Assessment & Plan: Lethargic at times, while he is more responsive now. Status: Acute
[2017-11-07] MEDS: metroNIDAZOLE 500mg/100ml NS 100 ML IVPB SCH ×3 (01:00→17:29)
[2017-11-07] MEDS: Proshield Plus GEL TOP SCH ×3 (01:00→17:36)
[2017-11-07] MEDS: Meropenem 500 MG in Sodium Chloride 0.9% 100 ML IVPB SCH ×3 (01:01→17:35)
[2017-11-07] MEDS: Metoprolol 1 mg/ml Inj IVP SCH ×4 (03:52→21:33)
[2017-11-07 05:46] LABS: HEMOGLOBIN 9.4 g/dL (12.0-18.0); MEAN CELL VOLUME 95.3 fl (80.0-94.0); MEAN CORPUSCULAR HEMOGLOBIN 30.6 pg (27.0-31.0); MEAN CORPUSCULAR HGB CONC 32.1 g/dL (33.0-37.0); RBC 3.08 Mil/uL (4.40-5.90); RED CELL DISTRIBUTION WIDTH 22.4 % (11.5-14.5); WHITE BLOOD COUNT 8.1 K/uL (4.8-10.8)
[2017-11-07 06:04] LABS: BLOOD UREA NITROGEN 34 mg/dl (9-20); CALCIUM 8.3 mg/dL (8.4-10.2); GFR AFRICAN-AMERICAN > 60; GFR NON-AFRICAN AMERICAN > 60
--- NOTE | 2017-11-07 08:45 | CP.PCM.PN ---
<Yoon Garvin - Last Filed: 11/07/17 08:41> Subjective - Date & Time of Evaluation Date of Evaluation: 11/07/17 Time of Evaluation: 08:41 - Subjective Subjective: PGY2 progress note for cardiology, Dr. Castro Pt seen and examined at bedside. No acute events overnight. at bedside. Pt responding to questions. Chest tube in place draining light yellow fluid. ROS unobtainable due to mental status. Objective - Vital Signs/Intake and Output Vital Signs (last 24 hours): Temp Pulse Resp BP Pulse Ox 98.0 F 87 20 142/82 100 11/07/17 08:00 11/07/17 08:00 11/07/17 08:21 11/07/17 08:00 11/07/17 08:00 Intake and Output: 11/07/17 11/07/17 06:59 18:59 Intake Total 1030 Balance 1030 - Medications Medications: Current Medications Acetaminophen (Tylenol 650mg/20.3ml Solution Ud) 650 mg PO Q6 PRN PRN Reason: Temperature Last Admin: 11/01/17 09:32 Dose: 650 mg Cholecalciferol (Vitamin D) 5,000 intlu PO DAILY [facility] Last Admin: 11/06/17 08:44 Dose: 5,000 intlu Collagenase (Santyl) 1 applic TOP DAILY [facility] Last Admin: 11/06/17 09:48 Dose: 1 appl Diltiazem HCl (Cardizem) 30 mg PO 0300,0900,1500,2100 [facility] Last Admin: 11/07/17 03:45 Dose: 30 mg Dimethicone (Proshield Plus Skin Protectant) 1 applic TOP Q8 [facility] Last Admin: 11/07/17 01:00 Dose: 1 applic Ferrous Gluconate (Fergon) 324 mg PO DAILY [facility] Last Admin: 11/06/17 08:40 Dose: 324 mg Furosemide (Lasix) 40 mg IVP DAILY [facility] Last Admin: 11/06/17 08:39 Dose: 40 mg Meropenem 500 mg/ Sodium (Chloride) 100 mls @ 100 mls/hr IVPB Q8 [facility] PRN Reason: Protocol Last Admin: 11/07/17 01:01 Dose: 100 mls/hr Metronidazole (Flagyl 500mg/100ml Ns) 100 mls @ 100 mls/hr IVPB Q8 [facility] PRN Reason: Protocol Last Admin: 11/07/17 01:00 Dose: 100 mls/hr Vancomycin HCl 1 gm/ Sodium (Chloride) 250 mls @ 166.667 mls/hr IVPB Q48H [facility] PRN Reason: Protocol Last Admin: 11/06/17 10:43 Dose: 166.667 mls/hr Lactobacillus Acidophilus (Bacid Acidophilus) 1 cap PO BID [facility] Last Admin: 11/06/17 17:01 Dose: 1 cap Lamotrigine (Lamictal) 50 mg PO Q12@0930,2130 [facility] Last Admin: 11/06/17 21:02 Dose: 50 mg Metoprolol Succinate (Toprol Xl) 50 mg PO DAILY [facility] Metoprolol Tartrate (Lopressor) 5 mg IVP Q6 [facility] Last Admin: 11/07/17 03:52 Dose: 5 mg Sildenafil Citrate (Revatio) 20 mg PO BID [facility] Last Admin: 11/06/17 17:02 Dose: 20 mg Spironolactone (Aldactone) 25 mg PO DAILY [facility] Last Admin: 11/06/17 08:42 Dose: 25 mg - Labs Labs: 11/07/17 04:40 11/07/17 04:40 PT 14.9 Seconds (9.8-13.1) H 10/29/17 04:20 INR 1.3 (0.9-1.2) H 10/29/17 04:20 APTT 34.4 Seconds (25.6-37.1) 10/26/17 12:30 - Constitutional Appears: Non-toxic, No Acute Distress - Head Exam Head Exam: ATRAUMATIC - ENT Exam ENT Exam: Mucous Membranes Moist - Respiratory Exam Respiratory Exam: Rhonchi. absent: Accessory Muscle Use, Wheezes, Respiratory Distress - Cardiovascular Exam Cardiovascular Exam: REGULAR RHYTHM, +S1, +S2 - Extremities Exam Extremities Exam: absent: Pedal Edema, Tenderness - Neurological Exam Neurological Exam: Alert, Awake, Oriented x3 - Psychiatric Exam Psychiatric exam: Normal Affect, Normal Mood - Skin Skin Exam: Dry, Intact, Normal Color, Warm Assessment and Plan - Assessment and Plan (Free Text) Assessment: (1) A-fib Continue cardizem and Toprol XL daily Continue anticoagulation with eliquis (2) Aortic valve vegetation Currently on meropenem and vanco ID following (3) Acute respiratory failure with hypoxia likely 2/2 B/L effusion On HFNC (4) Pulmonary HTN Continue Revatio 20 mg BID (5) Acute decompensated heart failure Currently on Spironolactone Echo shows EF of 60-65% Pro BNP repeat is 1260 (6) Left pleura effusion CXR done yesterday showed improved B/L pleural effusion left chest tube still in place Cont abx per ID Sputum grew pseudomonas (7) Encephalopathy Improving Neurology is following (8) Hyperkalemia improved Case will be discussed with attending, Dr. Castro <Varun Castro - Last Filed: 11/07/17 11:15> Objective - Vital Signs/Intake and Output Vital Signs (last 24 hours): Temp Pulse Resp BP Pulse Ox 98.0 F 102 H 16 154/107 H 100 11/07/17 08:00 11/07/17 09:53 11/07/17 09:52 11/07/17 09:53 11/07/17 09:52 Intake and Output: 11/07/17 11/07/17 06:59 18:59 Intake Total 1030 Balance 1030 - Medications Medications: Current Medications Acetaminophen (Tylenol 650mg/20.3ml Solution Ud) 650 mg PO Q6 PRN PRN Reason: Temperature Last Admin: 11/01/17 09:32 Dose: 650 mg Cholecalciferol (Vitamin D) 5,000 intlu PO DAILY [facility] Last Admin: 11/07/17 09:49 Dose: 5,000 intlu Collagenase (Santyl) 1 applic TOP DAILY [facility] Last Admin: 11/07/17 09:56 Dose: 1 appl Diltiazem HCl (Cardizem) 30 mg PO 0300,0900,1500,2100 [facility] Last Admin: 11/07/17 09:52 Dose: 30 mg Dimethicone (Proshield Plus Skin Protectant) 1 applic TOP Q8 [facility] Last Admin: 11/07/17 09:55 Dose: 1 applic Ferrous Gluconate (Fergon) 324 mg PO DAILY [facility] Last Admin: 11/07/17 09:50 Dose: 324 mg Furosemide (Lasix) 40 mg IVP DAILY [facility] Last Admin: 11/07/17 09:43 Dose: 40 mg Home Med (Patient's Own Medication) 1 unit PO DAILY [facility] Meropenem 500 mg/ Sodium (Chloride) 100 mls @ 100 mls/hr IVPB Q8 [facility] PRN Reason: Protocol Last Admin: 11/07/17 09:54 Dose: 100 mls/hr Metronidazole (Flagyl 500mg/100ml Ns) 100 mls @ 100 mls/hr IVPB Q8 [facility] PRN Reason: Protocol Last Admin: 11/07/17 09:41 Dose: 100 mls/hr Vancomycin HCl 1 gm/ Sodium (Chloride) 250 mls @ 166.667 mls/hr IVPB Q48H [facility] PRN Reason: Protocol Last Admin: 11/06/17 10:43 Dose: 166.667 mls/hr Lactobacillus Acidophilus (Bacid Acidophilus) 1 cap PO BID [facility] Last Admin: 11/07/17 09:43 Dose: 1 cap Lamotrigine (Lamictal) 50 mg PO Q12@30,2129 [facility] Last Admin: 11/07/17 09:49 Dose: 50 mg Metoprolol Tartrate (Lopressor) 5 mg IVP Q6 [facility] Last Admin: 11/07/17 09:53 Dose: 5 mg Sildenafil Citrate (Revatio) 20 mg PO BID [facility] Last Admin: 11/07/17 09:48 Dose: 20 mg Spironolactone (Aldactone) 25 mg PO DAILY [facility] Last Admin: 11/07/17 09:49 Dose: 25 mg - Labs Labs: 11/07/17 04:40 11/07/17 04:40 PT 14.9 Seconds (9.8-13.1) H 10/29/17 04:20 INR 1.3 (0.9-1.2) H 10/29/17 04:20 APTT 34.4 Seconds (25.6-37.1) 10/26/17 12:30 Assessment and Plan (1) A-fib Status: Chronic (2) Acute on chronic diastolic (congestive) heart failure Status: Chronic (3) Acute respiratory failure with hypoxia Status: Acute (4) Altered mental status Status: Deleted (5) HTN (hypertension) Status: Deleted (6) Seizure disorder Status: Chronic (7) CANDELARIA (acute kidney injury) Status: Resolved (8) Encephalopathy Status: Acute (9) Hypothermia Status: Deleted (10) Pleural effusion, bilateral Status: Acute (11) Supratherapeutic international normalized ratio (INR) Status: Acute (12) Acute decompensated heart failure Status: Acute (13) Atrial fibrillation with RVR Status: Acute Attending/Attestation - Attestation I have personally seen and examined this patient.: Yes I have fully participated in the care of the patient.: Yes I have reviewed all pertinent clinical information, including history, physical exam and plan: Yes Notes (Text): 11/07/17 11:15 chg meds - add toprol xl 50mg po bid and chg aldactone to 25mg po bid cont current meds clinically improving significantly PT/OT
[2017-11-07] MEDS ORDERED: Metoprolol Succinate 50 mg XL Tab PO SCH ×2 (09:00→21:00)
[2017-11-07] MEDS: Lactobacillus Acidophilus 500 MU Cap PO SCH ×2 (09:43→17:30)
[2017-11-07] MEDS: Sildenafil 20 MG TAB PO SCH ×2 (09:48→17:37)
[2017-11-07] MEDS: Cholecalciferol 1,000 INTLU TAB PO SCH (09:49)
[2017-11-07] MEDS: Santyl Collagenase OINTMENT TOP SCH (09:56)
[2017-11-07] MEDS ORDERED: METOPROLOL SUCCINATE 50 MG PO SCH ×2 (10:15→10:30)
--- NOTE | 2017-11-07 13:03 | CP.PCM.PN ---
Subjective - Date & Time of Evaluation Date of Evaluation: 11/07/17 Time of Evaluation: 08:00 - Subjective Subjective: events noted iv rx is ordered discussed with Dr Cole Objective - Vital Signs/Intake and Output Vital Signs (last 24 hours): Temp Pulse Resp BP Pulse Ox 98.5 F 81 22 132/55 L 100 11/07/17 12:00 11/07/17 12:00 11/07/17 12:00 11/07/17 12:00 11/07/17 12:00 Intake and Output: 11/07/17 11/07/17 06:59 18:59 Intake Total 1030 Balance 1030 - Medications Medications: Current Medications Acetaminophen (Tylenol 650mg/20.3ml Solution Ud) 650 mg PO Q6 PRN PRN Reason: Temperature Last Admin: 11/01/17 09:32 Dose: 650 mg Cholecalciferol (Vitamin D) 5,000 intlu PO DAILY [facility] Last Admin: 11/07/17 09:49 Dose: 5,000 intlu Collagenase (Santyl) 1 applic TOP DAILY [facility] Last Admin: 11/07/17 09:56 Dose: 1 appl Diltiazem HCl (Cardizem) 30 mg PO 0300,0900,1500,2100 [facility] Last Admin: 11/07/17 09:52 Dose: 30 mg Dimethicone (Proshield Plus Skin Protectant) 1 applic TOP Q8 [facility] Last Admin: 11/07/17 09:55 Dose: 1 applic Ferrous Gluconate (Fergon) 324 mg PO DAILY [facility] Last Admin: 11/07/17 09:50 Dose: 324 mg Furosemide (Lasix) 40 mg IVP DAILY [facility] Last Admin: 11/07/17 09:43 Dose: 40 mg Home Med (Patient's Own Medication) 1 unit PO Q12 [facility] Meropenem 500 mg/ Sodium (Chloride) 100 mls @ 100 mls/hr IVPB Q8 [facility] PRN Reason: Protocol Last Admin: 11/07/17 09:54 Dose: 100 mls/hr Metronidazole (Flagyl 500mg/100ml Ns) 100 mls @ 100 mls/hr IVPB Q8 [facility] PRN Reason: Protocol Last Admin: 11/07/17 09:41 Dose: 100 mls/hr Vancomycin HCl 1 gm/ Sodium (Chloride) 250 mls @ 166.667 mls/hr IVPB Q48H [facility] PRN Reason: Protocol Last Admin: 11/06/17 10:43 Dose: 166.667 mls/hr Lactobacillus Acidophilus (Bacid Acidophilus) 1 cap PO BID [facility] Last Admin: 11/07/17 09:43 Dose: 1 cap Lamotrigine (Lamictal) 50 mg PO Q12@0930,2130 [facility] Last Admin: 11/07/17 09:49 Dose: 50 mg Metoprolol Tartrate (Lopressor) 5 mg IVP Q6 [facility] Last Admin: 11/07/17 09:53 Dose: 5 mg Sildenafil Citrate (Revatio) 20 mg PO BID [facility] Last Admin: 11/07/17 09:48 Dose: 20 mg Spironolactone (Aldactone) 25 mg PO BID [facility] - Labs Labs: 11/07/17 04:40 11/07/17 04:40 PT 14.9 Seconds (9.8-13.1) H 10/29/17 04:20 INR 1.3 (0.9-1.2) H 10/29/17 04:20 APTT 34.4 Seconds (25.6-37.1) 10/26/17 12:30 - Constitutional Appears: Non-toxic, Cachectic, Chronically Ill - Head Exam Head Exam: NORMOCEPHALIC - Eye Exam Eye Exam: PERRL. absent: Scleral icterus - ENT Exam ENT Exam: Mucous Membranes Dry - Neck Exam Neck Exam: absent: Lymphadenopathy - Respiratory Exam Respiratory Exam: Decreased Breath Sounds, Clear to Ausculation Bilateral Additional comments: chest tube in place - Cardiovascular Exam Cardiovascular Exam: REGULAR RHYTHM - GI/Abdominal Exam GI & Abdominal Exam: Distended, Soft. absent: Tenderness - Rectal Exam Rectal Exam: Deferred Assessment and Plan (1) CANDELARIA (acute kidney injury) Status: Resolved (2) Acute respiratory failure Status: Acute (3) Altered mental status Status: Deleted (4) Diastolic CHF, acute on chronic Status: Acute (5) Pleural effusion, bilateral Status: Acute (6) Pneumonia Status: Acute (7) Aortic valve vegetation Status: Acute
--- NOTE | 2017-11-07 15:54 | CP.PCM.PN ---
Subjective - Date & Time of Evaluation Date of Evaluation: 11/07/17 Time of Evaluation: 14:00 - Subjective Subjective: Hospitalist covering for Dr. Escamilla. Patient seen and examined at bedside. Able to have coherent speech now, although not with full sentences. He is responding appropriately to questioning. Awake and alert. No complaints as per patient. is at bedside and case was discussed. Objective - Vital Signs/Intake and Output Vital Signs (last 24 hours): Temp Pulse Resp BP Pulse Ox 98.5 F 95 H 22 127/59 L 100 11/07/17 12:00 11/07/17 14:04 11/07/17 12:00 11/07/17 14:04 11/07/17 12:00 Intake and Output: 11/07/17 11/07/17 06:59 18:59 Intake Total 1030 Balance 1030 - Medications Medications: Current Medications Acetaminophen (Tylenol 650mg/20.3ml Solution Ud) 650 mg PO Q6 PRN PRN Reason: Temperature Last Admin: 11/01/17 09:32 Dose: 650 mg Cholecalciferol (Vitamin D) 5,000 intlu PO DAILY [facility] Last Admin: 11/07/17 09:49 Dose: 5,000 intlu Collagenase (Santyl) 1 applic TOP DAILY [facility] Last Admin: 11/07/17 09:56 Dose: 1 appl Diltiazem HCl (Cardizem) 30 mg PO 0300,0900,1500,2100 [facility] Last Admin: 11/07/17 14:04 Dose: 30 mg Dimethicone (Proshield Plus Skin Protectant) 1 applic TOP Q8 [facility] Last Admin: 11/07/17 09:55 Dose: 1 applic Ferrous Gluconate (Fergon) 324 mg PO DAILY [facility] Last Admin: 11/07/17 09:50 Dose: 324 mg Furosemide (Lasix) 40 mg IVP DAILY [facility] Last Admin: 11/07/17 09:43 Dose: 40 mg Home Med (Patient's Own Medication) 1 unit PO Q12 [facility] Meropenem 500 mg/ Sodium (Chloride) 100 mls @ 100 mls/hr IVPB Q8 [facility] PRN Reason: Protocol Last Admin: 11/07/17 09:54 Dose: 100 mls/hr Metronidazole (Flagyl 500mg/100ml Ns) 100 mls @ 100 mls/hr IVPB Q8 [facility] PRN Reason: Protocol Last Admin: 11/07/17 09:41 Dose: 100 mls/hr Vancomycin HCl 1 gm/ Sodium (Chloride) 250 mls @ 166.667 mls/hr IVPB Q48H [facility] PRN Reason: Protocol Last Admin: 11/06/17 10:43 Dose: 166.667 mls/hr Lactobacillus Acidophilus (Bacid Acidophilus) 1 cap PO BID [facility] Last Admin: 11/07/17 09:43 Dose: 1 cap Lamotrigine (Lamictal) 50 mg PO Q12@0930,2130 [facility] Last Admin: 11/07/17 09:49 Dose: 50 mg Metoprolol Tartrate (Lopressor) 5 mg IVP Q6 [facility] Last Admin: 11/07/17 09:53 Dose: 5 mg Sildenafil Citrate (Revatio) 20 mg PO BID [facility] Last Admin: 11/07/17 09:48 Dose: 20 mg Spironolactone (Aldactone) 25 mg PO BID [facility] - Labs Labs: 11/07/17 04:40 11/07/17 04:40 PT 14.9 Seconds (9.8-13.1) H 10/29/17 04:20 INR 1.3 (0.9-1.2) H 10/29/17 04:20 APTT 34.4 Seconds (25.6-37.1) 10/26/17 12:30 - Additional Findings Additional findings: Physical exam: Constitutional- awake and alert, watching TV, clinically appears much better. Head- NCAT, PERRL Eye- PERRL, normal accommodation ENT- normal exam, MMM. 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 As per , she feels patient had clonic movements several days ago. Patient was found to be Hypotermic with SOB associated with cough unable to bring out phlegms, also with CXr showing bilateral pleural effusions and Infiltrates . INR 5.6, PTT 68.0, PT 65.9 His hospital course has been complicated by hypoxia requiring intubation, right pig tail catheter placement and left thoracentesis for pleural effusions. He has been followed by neuro , pulmonary , ID, nephro and cardiology . He has been on broad spectrum antibiotics for Aspiration Pneumonia and has been diuresing well and developed CANDELARIA and hypernatremia. At present more awake and alert , following commands. Tolerating High flow during the day 40 LPM FIO2 50 % and Bipap at night.Sputum cultures positive for Pseudomonas aerugoinosa. 1. Acute respiratory failure with hypoxia and hypercapnia etiology multi factorial -- pleural effusion , CHF, pneumonia was intubated and now extubated tolerating High Flow w Vapotherm 40 LPM on FIO2 50 % and BIPAP at night s/p multiple thoracentheis with pig tail placement . Left pigtail with 30 cc output last 24 hours Sputum cx positive for pseudomonas ID on consult. On meropenem and vanco IV as well as Flagyl. Continue duonebs CXR showed improvement of infiltrates and minimal pleural effusion Aspiration precautions since patient failed swallow eval NGT in place with feeding Vital 1.0 with no residuals. refused peg placement pulmonary on consult following 2. Aspiration pneumonia Acute ID and pulmonary on consult s/p BAL sputum cx positive for Pseudomonas On Vanco and meropenem 3.Altered mental status-- improving unclear etiology possibly Metabolic encephalopathy due to hypoxemia, pneumonia or related to uncontrolled seizures CT head showed no acute pathology Neurology consulted Lamictal 50 mg po Q12 hours seizure precautions Today more awake and alert , following commands Continue Bipap and High flow as ordered on IV antibiotics 4. Pleural effusion, bilateral s/p mulitiple thoracenthesis both right and left by IR and chest tube placement by CTS At present left pig tail in place with 30 cc input last 24 hours pulmonary and CTS on consult 5. Diastolic CHF, acute on chronic with pulmonary hypertension Acute. slowly improving cardiology on board Diuretics on hold due to worsening renal function and hypernatremia low salt diet on Sildenafil for pulmonary hypertension Continue Lasix as per nephrology Continue spironolactone 6. A-fib Chronic , better controlled cardiology on consult Dr. Castro s/p STEVEN and elective cardioversion on cardizem and metoprolol IV On Eliquis for anticoagulation 7.CANDELARIA (acute kidney injury)- resolving stable improved Nephrology on consult 8. Hypernatremia resolved due to dehydration low salt diet 9. HTN (hypertension) Chronic , controlled on Metoprolol, cardizem and spironolactone 10. Hx of seizure disorder Chronic neurology consulted lamictal dose 50mg Q12 hours 11. Anemia of chronic disease- improving slowly Hgb 9.8->9.3 Today, stable Monitor for now on ferrous sulfate 12.Coumadin toxicity INR was 5.6 on admission Coumadin on hold started Eliquis for anticoagulation 13. SUSAN (obstructive sleep apnea) Chronic BIPAP at night 14. C diff antigen positive Dr. Winslow on consultation Flagyl added 15. Failed swallow eval NGT in place with feeding Aspiration precautions refused peg 16. Frailty/ poor ,guarded prognosis patient is full code is surrogate decision maker 17. Vitamin D deficiency on ergocalciferol 18. DVT prophylaxis Eliquis
[2017-11-07] MEDS ORDERED: Chlorhexidine Gluconate 1 APPL/PKT TP ONE (16:51)
[2017-11-07] MEDS: METOPROLOL SUCCINATE 50 MG PO SCH (21:45)
--- NOTE | 2017-11-07 23:53 | CP.PCM.PN ---
Subjective - Date & Time of Evaluation Date of Evaluation: 11/07/17 Time of Evaluation: 22:00 - Subjective Subjective: Patient is doing better, more responsive, apparently understands conversation and answers simple answers showing he is following the conversation with him. No seizures on Lamictal 50 mg Q 12 hrs. His labs are consistent with anemia. Objective - Vital Signs/Intake and Output Vital Signs (last 24 hours): Temp Pulse Resp BP Pulse Ox 99.2 F 96 H 23 124/59 L 100 11/07/17 16:00 11/07/17 21:33 11/07/17 20:13 11/07/17 21:33 11/07/17 20:13 Intake and Output: 11/07/17 11/08/17 18:59 06:59 Intake Total 1440 Output Total 1100 Balance 340 - Medications Medications: Current Medications Acetaminophen (Tylenol 650mg/20.3ml Solution Ud) 650 mg PO Q6 PRN PRN Reason: Temperature Last Admin: 11/01/17 09:32 Dose: 650 mg Cholecalciferol (Vitamin D) 5,000 intlu PO DAILY [facility] Last Admin: 11/07/17 09:49 Dose: 5,000 intlu Collagenase (Santyl) 1 applic TOP DAILY [facility] Last Admin: 11/07/17 09:56 Dose: 1 appl Diltiazem HCl (Cardizem) 30 mg PO 0300,0900,1500,2100 [facility] Last Admin: 11/07/17 20:13 Dose: 30 mg Dimethicone (Proshield Plus Skin Protectant) 1 applic TOP Q8 [facility] Last Admin: 11/07/17 17:36 Dose: 1 applic Ferrous Gluconate (Fergon) 324 mg PO DAILY [facility] Last Admin: 11/07/17 09:50 Dose: 324 mg Furosemide (Lasix) 40 mg IVP DAILY [facility] Last Admin: 11/07/17 09:43 Dose: 40 mg Home Med (Patient's Own Medication) 1 unit PO Q12 [facility] Last Admin: 11/07/17 21:45 Dose: Not Given Meropenem 500 mg/ Sodium (Chloride) 100 mls @ 100 mls/hr IVPB Q8 [facility] PRN Reason: Protocol Last Admin: 11/07/17 17:35 Dose: 100 mls/hr Metronidazole (Flagyl 500mg/100ml Ns) 100 mls @ 100 mls/hr IVPB Q8 [facility] PRN Reason: Protocol Last Admin: 11/07/17 17:29 Dose: 100 mls/hr Vancomycin HCl 1 gm/ Sodium (Chloride) 250 mls @ 166.667 mls/hr IVPB Q48H [facility] PRN Reason: Protocol Last Admin: 11/06/17 10:43 Dose: 166.667 mls/hr Lactobacillus Acidophilus (Bacid Acidophilus) 1 cap PO BID [facility] Last Admin: 11/07/17 17:30 Dose: 1 cap Lamotrigine (Lamictal) 50 mg PO Q12@0930,2130 [facility] Last Admin: 11/07/17 21:32 Dose: 50 mg Metoprolol Tartrate (Lopressor) 5 mg IVP Q6 [facility] Last Admin: 11/07/17 21:33 Dose: 5 mg Sildenafil Citrate (Revatio) 20 mg PO BID [facility] Last Admin: 11/07/17 17:37 Dose: 20 mg Spironolactone (Aldactone) 25 mg PO BID [facility] Last Admin: 11/07/17 17:28 Dose: 25 mg - Labs Labs: 11/07/17 04:40 11/07/17 04:40 PT 14.9 Seconds (9.8-13.1) H 10/29/17 04:20 INR 1.3 (0.9-1.2) H 10/29/17 04:20 APTT 34.4 Seconds (25.6-37.1) 10/26/17 12:30 Assessment and Plan (1) CANDELARIA (acute kidney injury) Status: Resolved (2) Acute respiratory failure Status: Acute (3) Altered mental status Status: Deleted (4) Pleural effusion, bilateral Status: Acute (5) Pneumonia Status: Acute (6) Seizure disorder Status: Suspected (7) Encephalopathy Status: Acute
[2017-11-08] MEDS: metroNIDAZOLE 500mg/100ml NS 100 ML IVPB SCH ×3 (01:15→16:10)
[2017-11-08] MEDS: Meropenem 500 MG in Sodium Chloride 0.9% 100 ML IVPB SCH ×3 (01:16→16:10)
[2017-11-08] MEDS: Proshield Plus GEL TOP SCH ×3 (01:17→16:11)
[2017-11-08] MEDS: Metoprolol 1 mg/ml Inj IVP SCH ×4 (02:59→21:46)
[2017-11-08 05:48] LABS: BASO % 0.3 % (0.0-2.0); EOS # 0.1 K/uL (0.0-0.7); EOS % 1.2 % (0.0-4.0); HEMOGLOBIN 9.4 g/dL (12.0-18.0); LYMPH # 1.1 K/uL (1.0-4.3); LYMPH % 10.5 % (20.0-40.0); MEAN CELL VOLUME 95.2 fl (80.0-94.0); MEAN CORPUSCULAR HEMOGLOBIN 30.4 pg (27.0-31.0); MEAN CORPUSCULAR HGB CONC 31.9 g/dL (33.0-37.0); MEAN PLATELET VOLUME 7.3 fl (7.2-11.7); MONO # 0.8 K/uL (0.0-0.8); MONO % 7.7 % (0.0-10.0); NEUT # 8.6 K/uL (1.8-7.0); NEUT % 80.3 % (50.0-75.0); RBC 3.11 Mil/uL (4.40-5.90); RED CELL DISTRIBUTION WIDTH 21.8 % (11.5-14.5); WHITE BLOOD COUNT 10.8 K/uL (4.8-10.8)
[2017-11-08 06:21] LABS: ALBUMIN 2.7 g/dL (3.5-5.0); ALT/SGPT 28 U/L (21-72); AST/SGOT 21 U/L (17-59); BLOOD UREA NITROGEN 36 mg/dl (9-20); CALCIUM 8.3 mg/dL (8.4-10.2); GFR AFRICAN-AMERICAN > 60; GFR NON-AFRICAN AMERICAN > 60
[2017-11-08 06:26] LABS: ALB/GLOB RATIO 0.7 (1.0-2.1)
--- NOTE | 2017-11-08 07:14 | CP.PCM.PN ---
<Yoon Gravin - Last Filed: 11/08/17 07:08> Subjective - Date & Time of Evaluation Date of Evaluation: 11/08/17 Time of Evaluation: 07:08 - Subjective Subjective: PGY 2 progress note for cardiology Dr. Castro Pt seen and examined at bedside. No acute events overnight. at bedside. Pt is awake and following simple commands. ROS unobtainable due to mental status. Objective - Vital Signs/Intake and Output Vital Signs (last 24 hours): Temp Pulse Resp BP Pulse Ox 98.6 F 91 H 22 139/75 100 11/08/17 04:00 11/08/17 06:00 11/08/17 06:00 11/08/17 06:00 11/08/17 06:00 Intake and Output: 11/08/17 11/08/17 06:59 18:59 Intake Total 1170 Output Total 500 Balance 670 - Medications Medications: Current Medications Acetaminophen (Tylenol 650mg/20.3ml Solution Ud) 650 mg PO Q6 PRN PRN Reason: Temperature Last Admin: 11/01/17 09:32 Dose: 650 mg Cholecalciferol (Vitamin D) 5,000 intlu PO DAILY [facility] Last Admin: 11/07/17 09:49 Dose: 5,000 intlu Collagenase (Santyl) 1 applic TOP DAILY [facility] Last Admin: 11/07/17 09:56 Dose: 1 appl Diltiazem HCl (Cardizem) 30 mg PO 0300,0900,1500,2100 [facility] Last Admin: 11/08/17 02:57 Dose: 30 mg Dimethicone (Proshield Plus Skin Protectant) 1 applic TOP Q8 [facility] Last Admin: 11/08/17 01:17 Dose: 1 applic Ferrous Gluconate (Fergon) 324 mg PO DAILY [facility] Last Admin: 11/07/17 09:50 Dose: 324 mg Furosemide (Lasix) 40 mg IVP DAILY [facility] Last Admin: 11/07/17 09:43 Dose: 40 mg Home Med (Patient's Own Medication) 1 unit PO Q12 [facility] Last Admin: 11/07/17 21:45 Dose: Not Given Meropenem 500 mg/ Sodium (Chloride) 100 mls @ 100 mls/hr IVPB Q8 [facility] PRN Reason: Protocol Last Admin: 11/08/17 01:16 Dose: 100 mls/hr Metronidazole (Flagyl 500mg/100ml Ns) 100 mls @ 100 mls/hr IVPB Q8 [facility] PRN Reason: Protocol Last Admin: 11/08/17 01:15 Dose: 100 mls/hr Vancomycin HCl 1 gm/ Sodium (Chloride) 250 mls @ 166.667 mls/hr IVPB Q48H [facility] PRN Reason: Protocol Last Admin: 11/06/17 10:43 Dose: 166.667 mls/hr Lactobacillus Acidophilus (Bacid Acidophilus) 1 cap PO BID [facility] Last Admin: 11/07/17 17:30 Dose: 1 cap Lamotrigine (Lamictal) 50 mg PO Q12@0930,2130 [facility] Last Admin: 11/07/17 21:32 Dose: 50 mg Metoprolol Tartrate (Lopressor) 5 mg IVP Q6 [facility] Last Admin: 11/08/17 02:59 Dose: 5 mg Sildenafil Citrate (Revatio) 20 mg PO BID [facility] Last Admin: 11/07/17 17:37 Dose: 20 mg Spironolactone (Aldactone) 25 mg PO BID [facility] Last Admin: 11/07/17 17:28 Dose: 25 mg - Labs Labs: 11/08/17 05:00 11/08/17 05:00 PT 14.9 Seconds (9.8-13.1) H 10/29/17 04:20 INR 1.3 (0.9-1.2) H 10/29/17 04:20 APTT 34.4 Seconds (25.6-37.1) 10/26/17 12:30 - Constitutional Appears: Non-toxic, No Acute Distress - Head Exam Head Exam: ATRAUMATIC - ENT Exam ENT Exam: Mucous Membranes Moist - Respiratory Exam Respiratory Exam: Rhonchi. absent: Accessory Muscle Use, Rales, Wheezes, Respiratory Distress - Cardiovascular Exam Cardiovascular Exam: Irregular Rhythm, +S1, +S2 - GI/Abdominal Exam GI & Abdominal Exam: Soft, Normal Bowel Sounds. absent: Distended, Firm, Guarding, Rigid, Tenderness, Organomegaly - Extremities Exam Extremities Exam: absent: Pedal Edema, Tenderness - Neurological Exam Neurological Exam: Awake. absent: Oriented x3 - Psychiatric Exam Psychiatric exam: absent: Normal Affect, Normal Mood - Skin Skin Exam: Dry, Intact, Normal Color, Warm Assessment and Plan - Assessment and Plan (Free Text) Assessment: (1) A-fib Continue cardizem. Pt is currently NPO and unable to take Toprol XL via feeding tube. Pending swallow eval today. Will consider increasing cardizem instead. Continue anticoagulation with eliquis (2) Aortic valve vegetation Currently on meropenem and vanco ID following (3) Acute respiratory failure with hypoxia likely 2/2 B/L effusion On HFNC sating at 100% (4) Pulmonary HTN Continue Revatio 20 mg BID (5) Acute decompensated heart failure Increased spironolactone to BID yesterday due to persistently elevated BNP (1260 ) Echo shows EF of 60-65% (6) Left pleura effusion CXR done yesterday showed improved B/L pleural effusion left chest tube still in place Cont abx per ID Sputum grew pseudomonas (7) Encephalopathy Improving Neurology is following (8) Hyperkalemia improved Continue to monitor (9) Seizure disorder Neuro following Currently on Lamictal Case will be discussed with attending, Dr. Castro <Varun Castro - Last Filed: 11/11/17 21:07> Objective - Vital Signs/Intake and Output Vital Signs (last 24 hours): Temp Pulse Resp BP Pulse Ox 97.6 F 71 21 129/66 100 11/11/17 20:00 11/11/17 20:31 11/11/17 20:39 11/11/17 20:31 11/11/17 20:00 Intake and Output: 11/11/17 11/12/17 18:59 06:59 Intake Total 1440 Output Total 1800 Balance -360 - Medications Medications: Current Medications Acetaminophen (Tylenol 650mg/20.3ml Solution Ud) 650 mg PO Q6 PRN PRN Reason: Temperature Last Admin: 11/01/17 09:32 Dose: 650 mg Acetazolamide (Diamox 250 Mg Tab) 250 mg PO BID [facility] Last Admin: 11/11/17 16:25 Dose: 250 mg Apixaban (Eliquis) 2.5 mg PO BID [facility] PRN Reason: Protocol Last Admin: 11/11/17 18:22 Dose: 2.5 mg Cholecalciferol (Vitamin D) 5,000 intlu PO DAILY [facility] Last Admin: 11/11/17 08:40 Dose: 5,000 intlu Collagenase (Santyl) 1 applic TOP DAILY [facility] Last Admin: 11/11/17 08:40 Dose: 1 appl Diltiazem HCl (Cardizem) 60 mg PO 0300,0900,1500,2100 [facility] Last Admin: 11/11/17 20:31 Dose: 60 mg Dimethicone (Proshield Plus Skin Protectant) 1 applic TOP Q8 [facility] Last Admin: 11/11/17 16:26 Dose: 1 applic Ferrous Gluconate (Fergon) 324 mg PO DAILY [facility] Last Admin: 11/11/17 08:36 Dose: 324 mg Furosemide (Lasix) 40 mg IVP DAILY [facility] Last Admin: 11/11/17 08:37 Dose: 40 mg Meropenem 500 mg/ Sodium (Chloride) 100 mls @ 100 mls/hr IVPB Q8 [facility] PRN Reason: Protocol Last Admin: 11/11/17 18:20 Dose: 100 mls/hr Metronidazole (Flagyl 500mg/100ml Ns) 100 mls @ 100 mls/hr IVPB Q8 [facility] PRN Reason: Protocol Last Admin: 11/11/17 18:20 Dose: 100 mls/hr Vancomycin HCl 1 gm/ Sodium (Chloride) 250 mls @ 166.667 mls/hr IVPB Q48H [facility] PRN Reason: Protocol Last Admin: 11/10/17 09:40 Dose: 166.667 mls/hr Lactobacillus Acidophilus (Bacid Acidophilus) 1 cap PO BID [facility] Last Admin: 11/11/17 16:25 Dose: 1 cap Lamotrigine (Lamictal) 50 mg PO Q12@0930,2130 [facility] Last Admin: 11/11/17 20:32 Dose: 50 mg Metoprolol Tartrate (Lopressor) 5 mg IVP 0000,0600,1200,1800 [facility] Last Admin: 11/11/17 18:22 Dose: 5 mg Sildenafil Citrate (Revatio) 20 mg PO BID [facility] Last Admin: 11/11/17 16:26 Dose: 20 mg Spironolactone (Aldactone) 25 mg PO BID [facility] Last Admin: 11/11/17 16:25 Dose: 25 mg - Labs Labs: 11/11/17 05:00 11/11/17 05:00 PT 14.9 Seconds (9.8-13.1) H 10/29/17 04:20 INR 1.3 (0.9-1.2) H 10/29/17 04:20 APTT 34.4 Seconds (25.6-37.1) 10/26/17 12:30 Assessment and Plan (1) A-fib Status: Chronic (2) Acute on chronic diastolic (congestive) heart failure Status: Chronic (3) Acute respiratory failure with hypoxia Status: Acute (4) Altered mental status Status: Deleted (5) HTN (hypertension) Status: Chronic (6) Seizure disorder Status: Chronic (7) CANDELARIA (acute kidney injury) Status: Resolved (8) Encephalopathy Status: Acute (9) Hypothermia Status: Deleted (10) Pleural effusion, bilateral Status: Acute (11) Supratherapeutic international normalized ratio (INR) Status: Acute (12) Acute decompensated heart failure Status: Acute (13) Atrial fibrillation with RVR Status: Acute Attending/Attestation - Attestation I have personally seen and examined this patient.: Yes I have fully participated in the care of the patient.: Yes I have reviewed all pertinent clinical information, including history, physical exam and plan: Yes
[2017-11-08] MEDS: Sildenafil 20 MG TAB PO SCH ×2 (09:55→16:12)
[2017-11-08] MEDS: Cholecalciferol 1,000 INTLU TAB PO SCH (09:58)
[2017-11-08] MEDS: METOPROLOL SUCCINATE 50 MG PO SCH ×2 (10:07→21:42)
[2017-11-08] MEDS: Santyl Collagenase OINTMENT TOP SCH (10:07)
--- NOTE | 2017-11-08 11:31 | CP.PCM.PN ---
Subjective - Date & Time of Evaluation Date of Evaluation: 11/08/17 Time of Evaluation: 11:28 - Subjective Subjective: non changes clinically at bed side lab. reviewed co2 going up 37 chest few ronchies ht. no rube abd. soft ext. no edema A/P metabolic alkalisis perhaps from diuretics restart Diamox Objective - Vital Signs/Intake and Output Vital Signs (last 24 hours): Temp Pulse Resp BP Pulse Ox 98.0 F 96 H 13 131/80 100 11/08/17 08:00 11/08/17 10:02 11/08/17 08:00 11/08/17 10:02 11/08/17 08:00 Intake and Output: 11/08/17 11/08/17 06:59 18:59 Intake Total 1170 Output Total 500 Balance 670 - Medications Medications: Current Medications Acetaminophen (Tylenol 650mg/20.3ml Solution Ud) 650 mg PO Q6 PRN PRN Reason: Temperature Last Admin: 11/01/17 09:32 Dose: 650 mg Cholecalciferol (Vitamin D) 5,000 intlu PO DAILY [facility] Last Admin: 11/08/17 09:58 Dose: 5,000 intlu Collagenase (Santyl) 1 applic TOP DAILY [facility] Last Admin: 11/08/17 10:07 Dose: 1 appl Diltiazem HCl (Cardizem) 60 mg PO 0300,0900,1500,2100 [facility] Last Admin: 11/08/17 10:02 Dose: 60 mg Dimethicone (Proshield Plus Skin Protectant) 1 applic TOP Q8 [facility] Last Admin: 11/08/17 10:07 Dose: 1 applic Ferrous Gluconate (Fergon) 324 mg PO DAILY [facility] Last Admin: 11/08/17 10:07 Dose: 324 mg Furosemide (Lasix) 40 mg IVP DAILY [facility] Last Admin: 11/08/17 09:56 Dose: 40 mg Home Med (Patient's Own Medication) 1 unit PO Q12 [facility] Last Admin: 11/08/17 10:07 Dose: Not Given Meropenem 500 mg/ Sodium (Chloride) 100 mls @ 100 mls/hr IVPB Q8 [facility] PRN Reason: Protocol Last Admin: 11/08/17 01:16 Dose: 100 mls/hr Metronidazole (Flagyl 500mg/100ml Ns) 100 mls @ 100 mls/hr IVPB Q8 [facility] PRN Reason: Protocol Last Admin: 11/08/17 01:15 Dose: 100 mls/hr Vancomycin HCl 1 gm/ Sodium (Chloride) 250 mls @ 166.667 mls/hr IVPB Q48H [facility] PRN Reason: Protocol Last Admin: 11/08/17 09:57 Dose: 166.667 mls/hr Lactobacillus Acidophilus (Bacid Acidophilus) 1 cap PO BID [facility] Last Admin: 11/07/17 17:30 Dose: 1 cap Lamotrigine (Lamictal) 50 mg PO Q12@0930,2130 [facility] Last Admin: 11/08/17 09:56 Dose: 50 mg Metoprolol Tartrate (Lopressor) 5 mg IVP Q6 [facility] Last Admin: 11/08/17 09:56 Dose: 5 mg Sildenafil Citrate (Revatio) 20 mg PO BID [facility] Last Admin: 11/08/17 09:55 Dose: 20 mg Spironolactone (Aldactone) 25 mg PO BID [facility] Last Admin: 11/08/17 09:54 Dose: 25 mg - Labs Labs: 11/08/17 05:00 11/08/17 05:00 PT 14.9 Seconds (9.8-13.1) H 10/29/17 04:20 INR 1.3 (0.9-1.2) H 10/29/17 04:20 APTT 34.4 Seconds (25.6-37.1) 10/26/17 12:30 Assessment and Plan (1) CANDELARIA (acute kidney injury) Status: Resolved (2) Diastolic CHF, acute on chronic Status: Acute (3) Hypernatremia Status: Acute
[2017-11-08] MEDS: Lactobacillus Acidophilus 500 MU Cap PO SCH ×2 (12:36→16:10)
[2017-11-08] MEDS ORDERED: Barium Sulfate Susp 0.1% w/v, 0.1% w/w 450 mL Bottle PO ONE (12:58)
--- NOTE | 2017-11-08 13:42 | CP.PCM.PN ---
Subjective - Date & Time of Evaluation Date of Evaluation: 11/08/17 Time of Evaluation: 07:00 - Subjective Subjective: lethargic nad IV rx renewed Objective - Vital Signs/Intake and Output Vital Signs (last 24 hours): Temp Pulse Resp BP Pulse Ox 99.3 F 84 21 115/68 100 11/08/17 12:00 11/08/17 12:00 11/08/17 12:00 11/08/17 12:00 11/08/17 12:00 Intake and Output: 11/08/17 11/08/17 06:59 18:59 Intake Total 1170 Output Total 500 Balance 670 - Medications Medications: Current Medications Acetaminophen (Tylenol 650mg/20.3ml Solution Ud) 650 mg PO Q6 PRN PRN Reason: Temperature Last Admin: 11/01/17 09:32 Dose: 650 mg Acetazolamide (Diamox 250 Mg Tab) 250 mg PO BID [facility] Cholecalciferol (Vitamin D) 5,000 intlu PO DAILY [facility] Last Admin: 11/08/17 09:58 Dose: 5,000 intlu Collagenase (Santyl) 1 applic TOP DAILY [facility] Last Admin: 11/08/17 10:07 Dose: 1 appl Diltiazem HCl (Cardizem) 60 mg PO 0300,0900,1500,2100 [facility] Last Admin: 11/08/17 10:02 Dose: 60 mg Dimethicone (Proshield Plus Skin Protectant) 1 applic TOP Q8 [facility] Last Admin: 11/08/17 10:07 Dose: 1 applic Ferrous Gluconate (Fergon) 324 mg PO DAILY [facility] Last Admin: 11/08/17 10:07 Dose: 324 mg Furosemide (Lasix) 40 mg IVP DAILY [facility] Last Admin: 11/08/17 09:56 Dose: 40 mg Home Med (Patient's Own Medication) 1 unit PO Q12 [facility] Last Admin: 11/08/17 10:07 Dose: Not Given Meropenem 500 mg/ Sodium (Chloride) 100 mls @ 100 mls/hr IVPB Q8 [facility] PRN Reason: Protocol Last Admin: 11/08/17 12:33 Dose: 100 mls/hr Metronidazole (Flagyl 500mg/100ml Ns) 100 mls @ 100 mls/hr IVPB Q8 [facility] PRN Reason: Protocol Last Admin: 11/08/17 12:32 Dose: 100 mls/hr Vancomycin HCl 1 gm/ Sodium (Chloride) 250 mls @ 166.667 mls/hr IVPB Q48H [facility] PRN Reason: Protocol Last Admin: 11/08/17 09:57 Dose: 166.667 mls/hr Lactobacillus Acidophilus (Bacid Acidophilus) 1 cap PO BID [facility] Last Admin: 11/08/17 12:36 Dose: 1 cap Lamotrigine (Lamictal) 50 mg PO Q12@0930,2130 [facility] Last Admin: 11/08/17 09:56 Dose: 50 mg Metoprolol Tartrate (Lopressor) 5 mg IVP Q6 [facility] Last Admin: 11/08/17 09:56 Dose: 5 mg Sildenafil Citrate (Revatio) 20 mg PO BID [facility] Last Admin: 11/08/17 09:55 Dose: 20 mg Spironolactone (Aldactone) 25 mg PO BID [facility] Last Admin: 11/08/17 09:54 Dose: 25 mg - Labs Labs: 11/08/17 05:00 11/08/17 05:00 PT 14.9 Seconds (9.8-13.1) H 10/29/17 04:20 INR 1.3 (0.9-1.2) H 10/29/17 04:20 APTT 34.4 Seconds (25.6-37.1) 10/26/17 12:30 - Constitutional Appears: Non-toxic, Cachectic, Chronically Ill - Head Exam Head Exam: NORMOCEPHALIC - Eye Exam Eye Exam: PERRL - ENT Exam ENT Exam: Mucous Membranes Dry - Neck Exam Neck Exam: absent: Lymphadenopathy - Respiratory Exam Respiratory Exam: Decreased Breath Sounds, Rales, Rhonchi - Cardiovascular Exam Cardiovascular Exam: REGULAR RHYTHM - GI/Abdominal Exam GI & Abdominal Exam: Distended Assessment and Plan (1) CANDELARIA (acute kidney injury) Status: Resolved (2) Acute respiratory failure Status: Acute (3) Altered mental status Status: Deleted (4) Diastolic CHF, acute on chronic Status: Acute (5) Pleural effusion, bilateral Status: Acute (6) Pneumonia Status: Acute (7) Aortic valve vegetation Status: Acute
--- NOTE | 2017-11-08 15:24 | CP.CCUPN ---
CCU Subjective - Physician Review Subjective (Free Text): 10/01/17 16:03 The patient was Seen and examined by me at the bedside, Medical records reviewed and Management issues were discussed and formulated with the house staff. 77 Years old Male with Multiple medical conditions including Atrial Fibrillation (on coumadin), CHF, CVA, HTN, Peripheral Edema, Seizures, Sleep Apnea, TIA Who was brought by EMS along with his to the Emergency Department for AMS Per , she was told by Dr. Escamilla to come to ED for "observation" She states that he has been on antibiotics for cough for 2 days and now develop hallucination secondary to antibiotics. In the ER he was very hypothermic, lethargic but respond to basic commands CXR showing bilateral pleural effusion and bibasilar opacity Tachypnea, placed on 50% VM Blood culture drawn and Received one dose of IV Rocephin and Zithromax Admitted to the ICU for Acute hypercarbic and Hypoxemic respiratory failure and severe sepsis Chest CT scan revealed moderate bilateral pleural effusion with atelectasis PT also had Elevated INR, received TOTAL 4U FFP 09/24, Underwent Left (8 fr) pig tail placement with about 500 serious fluid drained 09/25, Underwent Right (8 fr) pig tail placement and Left CT removed Right pig tail not functioning and Patient Underwent US guided placement of a right chest tube, 8 fr today Also Underwent US guided dual lumen picc placement via the right basilic vein 10/16, Underwent STEVEN with elective cardioversion (negative for clot) 10/14, US guided left thoracentesis 10/30, Underwent 8 fr pigtail drainage catheter placement left chest. Evaluated by Speach therapy, deemed high risk for aspiration and will be re- evaluated Evaluated by PT/OT 11/06/17 13:04 Today he is more awake, and interactive Followed up by wound care Comfortable, NAD Clinically improving and hemodynamically stable No Vasopressors Patient stable on high flow O2 supplement alternating with nocturnal BIPAP Last 24H I&O 1850/1925 Afebrile A-Fib on monitor, HR controlled, Resumed AC with Eliquis Tolerating tube feeding AM Labs,showing stable renal function and no leucocytosis (WBC 10.8, upper limit of normal ) CCU Objective - Vital Signs / Intake & Output Vital Signs (Last 4 hours): Vital Signs Temp Pulse Resp BP Pulse Ox 11/08/17 14:00 88 24 148/63 100 11/08/17 12:00 99.3 F 84 21 115/68 100 11/08/17 11:50 14 Intake and Output (Last 8hrs): Intake & Output 11/08/17 11/08/17 11/08/17 06:59 14:59 22:59 Intake Total 860 730 Output Total 500 Balance 360 730 Intake: Intake, Piggyback 200 450 Tube Feeding 560 280 Free Water Flush 100 Output: Urine 500 Urethral (Wang) 500 - Physical Exam Head: Positive for: Atraumatic, Normocephalic, Other (NG tube) Pupils: Positive for: PERRL, Sluggish Extroacular Muscles: Positive for: EOMI Conjunctiva: Positive for: Normal. Negative for: Icteric Ears: Positive for: Normal Mouth: Positive for: Moist Mucous Membranes Pharnyx: Negative for: ERYTHEMA Neck: Positive for: Normal Range of Motion. Negative for: JVD Respiratory/Chest: Positive for: Good Air Exchange, Respiratory Distress, Decreased Breath Sounds, Rhonchi (upper airway rhonchi), Tachypneic. Negative for: Accessory Muscle Use, Wheezes Cardiovascular: Positive for: Murmurs, Irregular Rhythm, Peripheal Pulses Present, Tachycardic. Negative for: Normal S1, S2, Rub Abdomen: Positive for: Normal Bowel Sounds. Negative for: Tenderness, Distention, Peritoneal Signs Upper Extremity: Positive for: Edema Lower Extremity: Positive for: Edema, NORMAL PULSES. Negative for: CALF TENDERNESS, Cyanosis Neurological: Positive for: Other (withdraws to deep pain) Skin: Positive for: Warm, Dry. Negative for: Rashes Psychiatric: Positive for: Alert, Lethargic. Negative for: Oriented x 3 - Medications Active Medications: Active Medications Generic Name Dose Route Start Last Admin Trade Name Freq PRN Reason Stop Dose Admin Acetaminophen 650 mg 10/25/17 16:16 11/01/17 09:32 Tylenol 650mg/20.3ml Solution Ud PO 650 mg Q6 PRN Administration Temperature Acetazolamide 250 mg 11/08/17 17:00 Diamox 250 Mg Tab PO BID [facility] Cholecalciferol 5,000 intlu 10/18/17 09:00 11/08/17 09:58 Vitamin D PO 5,000 intlu DAILY [facility] Administration Collagenase 1 applic 11/01/17 09:00 11/08/17 10:07 Santyl TOP 1 appl DAILY [facility] Administration Diltiazem HCl 60 mg 11/08/17 08:00 11/08/17 10:02 Cardizem PO 60 mg 0300,0900,1500,2100 [facility] Administration Dimethicone 1 applic 10/23/17 09:00 11/08/17 10:07 Proshield Plus Skin Protectant TOP 1 applic Q8 [facility] Administration Ferrous Gluconate 324 mg 10/24/17 09:00 11/08/17 10:07 Fergon PO 324 mg DAILY [facility] Administration Furosemide 40 mg 11/04/17 09:00 11/08/17 09:56 Lasix IVP 40 mg DAILY [facility] Administration Home Med 1 unit 11/07/17 21:00 11/08/17 10:07 Patient's Own Medication PO Not Given Q12 [facility] Meropenem 500 mg/ Sodium 100 mls @ 100 mls/hr 10/31/17 12:30 11/08/17 12:33 Chloride IVPB 100 mls/hr Q8 [facility] Administration Protocol Metronidazole 100 mls @ 100 mls/hr 11/01/17 17:00 11/08/17 12:32 Flagyl 500mg/100ml Ns IVPB 100 mls/hr Q8 [facility] Administration Protocol Vancomycin HCl 1 gm/ Sodium 250 mls @ 166.667 mls/hr 11/02/17 09:00 11/08/17 09:57 Chloride IVPB 166.667 mls/hr Q48H [facility] Administration Protocol Lactobacillus Acidophilus 1 cap 10/08/17 09:00 11/08/17 12:36 Bacid Acidophilus PO 1 cap BID [facility] Administration Lamotrigine 50 mg 10/31/17 21:30 11/08/17 09:56 Lamictal PO 50 mg Q12@0930,2130 [facility] Administration Metoprolol Tartrate 5 mg 10/31/17 23:21 11/08/17 09:56 Lopressor IVP 5 mg Q6 [facility] Administration Sildenafil Citrate 20 mg 11/01/17 09:00 11/08/17 09:55 Revatio PO 20 mg BID [facility] Administration Spironolactone 25 mg 11/07/17 17:00 11/08/17 09:54 Aldactone PO 25 mg BID [facility] Administration - Patient Studies Lab Studies: Lab Studies 11/08/17 11/08/17 Range/Units 05:00 05:00 WBC 10.8 (4.8-10.8) K/uL RBC 3.11 L (4.40-5.90) Mil/uL Hgb 9.4 L (12.0-18.0) g/dL Hct 29.6 L (35.0-51.0) % MCV 95.2 H (80.0-94.0) fl MCH 30.4 (27.0-31.0) pg MCHC 31.9 L (33.0-37.0) g/dL RDW 21.8 H (11.5-14.5) % Plt Count 466 H (130-400) K/uL MPV 7.3 (7.2-11.7) fl Neut % (Auto) 80.3 H (50.0-75.0) % Lymph % (Auto) 10.5 L (20.0-40.0) % Lewis % (Auto) 7.7 (0.0-10.0) % Eos % (Auto) 1.2 (0.0-4.0) % Baso % (Auto) 0.3 (0.0-2.0) % Neut # 8.6 H (1.8-7.0) K/uL Lymph # 1.1 (1.0-4.3) K/uL Lewis # 0.8 (0.0-0.8) K/uL Eos # 0.1 (0.0-0.7) K/uL Baso # 0.0 (0.0-0.2) K/uL Sodium 136 (132-148) mmol/l Potassium 4.6 (3.6-5.0) MMOL/L Chloride 97 L (98-107) mmol/L Carbon Dioxide 37 H (22-30) mmol/L Anion Gap 7 L (10-20) BUN 36 H (9-20) mg/dl Creatinine 0.7 L (0.8-1.5) mg/dl Est GFR ( Amer) > 60 Est GFR (Non-Af Amer) > 60 Random Glucose 125 H (75-110) mg/dL Calcium 8.3 L (8.4-10.2) mg/dL Total Bilirubin 0.1 L (0.2-1.3) mg/dl AST 21 (17-59) U/L ALT 28 (21-72) U/L Alkaline Phosphatase 107 (38-126) U/L Total Protein 6.6 (6.3-8.2) G/DL Albumin 2.7 L (3.5-5.0) g/dL Globulin 3.9 (2.2-3.9) gm/dL Albumin/Globulin Ratio 0.7 L (1.0-2.1) Laboratory Results - last 24 hr 11/08/17 11/08/17 05:00 05:00 WBC 10.8 RBC 3.11 L Hgb 9.4 L Hct 29.6 L MCV 95.2 H MCH 30.4 MCHC 31.9 L RDW 21.8 H Plt Count 466 H MPV 7.3 Neut % (Auto) 80.3 H Lymph % (Auto) 10.5 L Lewis % (Auto) 7.7 Eos % (Auto) 1.2 Baso % (Auto) 0.3 Neut # 8.6 H Lymph # 1.1 Lewis # 0.8 Eos # 0.1 Baso # 0.0 Sodium 136 Potassium 4.6 Chloride 97 L Carbon Dioxide 37 H Anion Gap 7 L BUN 36 H Creatinine 0.7 L Est GFR ( Amer) > 60 Est GFR (Non-Af Amer) > 60 Random Glucose 125 H Calcium 8.3 L Total Bilirubin 0.1 L AST 21 ALT 28 Alkaline Phosphatase 107 Total Protein 6.6 Albumin 2.7 L Globulin 3.9 Albumin/Globulin Ratio 0.7 L Fingerstick Blood Sugar Results: 83 Assessment/Plan (1) Acute respiratory failure with hypoxia Current Visit: Yes Status: Acute Priority: High Comment: Acute hypercarbic and Hypoxemic respiratory failure secondary to likely aspiration pneumonia with pleural effusion in the setting of severe Respiratory muscle weakness Continue with ICU care for hemodynamic and Respiratory monitoring Successfully extubated IV Vancomycin, Meropenem and Metronidazole Gentle Diuresis with Aldactone and IV lasix 40 mg daily Strict I&O, negative fluid balance Aggressive pulmonary toilet, chest PT, suctioning nebulizer treatment Maintain aspiration precautions GI/DVT PPX (2) CANDELARIA (acute kidney injury) Current Visit: Yes Status: Deleted Priority: High Comment: Improved renal function. Off all nephrotoxic medications Renally adjust medication dose (3) Altered mental status Current Visit: Yes Status: Deleted Priority: High Comment: More awake, interactive Toxic/metabolic encephalopathy, multifactorial in the sitting of Acute hypercarbic and Hypoxemic respiratory failure, pneumonia, uremia , sepsis (4) Pleural effusion, bilateral Current Visit: Yes Status: Acute Priority: High Comment: corrected coagulopathy 09/24, Underwent Left pig tail placement today with about 500 serious fluid drained 09/25, Underwent Right (8 fr) pig tail placement and Left CT removed 10/01, US guided placement of a right chest tube, 8 fr 10/14, US guided left thoracentesis. 10/30, Underwent 8 fr pigtail drainage catheter placement left chest. (5) A-fib Current Visit: No Status: Chronic Priority: High Comment: Continue IV Metoprolol and cardiazem 30 mg PO Q 6H HR better Resumed AC with Eliquis (6) Pulmonary hypertension Current Visit: Yes Status: Acute Comment: Continue Revatio 20 mg PO BID (7) Seizure disorder Current Visit: No Status: Chronic Priority: Medium Comment: Continue LamoTRIgine [Lamictal] 25 mg BID - Assessment and Plan (Free Text) Assessment: Attempted to discuss with the at bedside the possibility of transferring patient to telemetry since he clinically and respiratory status better, I attempted to review the rationale, risks, and alternatives to treatment plans, However she got very angry, claimed that this is not good for him and requested him to stay in ICU till the PMD return next week.
--- NOTE | 2017-11-08 19:09 | CP.PCM.PN ---
Subjective - Date & Time of Evaluation Date of Evaluation: 11/08/17 Time of Evaluation: 13:00 - Subjective Subjective: Hospitalist covering for Dr. Escamilla. Patient was seen and examined at bedside. No change from yesterday. He is awake and alert today with no complaints. Denies any chest pain or sob. Objective - Vital Signs/Intake and Output Vital Signs (last 24 hours): Temp Pulse Resp BP Pulse Ox 99.3 F 84 21 115/68 100 11/08/17 12:00 11/08/17 12:00 11/08/17 12:00 11/08/17 12:00 11/08/17 12:00 Intake and Output: 11/08/17 11/08/17 06:59 18:59 Intake Total 1170 Output Total 500 Balance 670 - Medications Medications: Current Medications Acetaminophen (Tylenol 650mg/20.3ml Solution Ud) 650 mg PO Q6 PRN PRN Reason: Temperature Last Admin: 11/01/17 09:32 Dose: 650 mg Acetazolamide (Diamox 250 Mg Tab) 250 mg PO BID [facility] Cholecalciferol (Vitamin D) 5,000 intlu PO DAILY [facility] Last Admin: 11/08/17 09:58 Dose: 5,000 intlu Collagenase (Santyl) 1 applic TOP DAILY [facility] Last Admin: 11/08/17 10:07 Dose: 1 appl Diltiazem HCl (Cardizem) 60 mg PO 0300,0900,1500,2100 [facility] Last Admin: 11/08/17 10:02 Dose: 60 mg Dimethicone (Proshield Plus Skin Protectant) 1 applic TOP Q8 [facility] Last Admin: 11/08/17 10:07 Dose: 1 applic Ferrous Gluconate (Fergon) 324 mg PO DAILY [facility] Last Admin: 11/08/17 10:07 Dose: 324 mg Furosemide (Lasix) 40 mg IVP DAILY [facility] Last Admin: 11/08/17 09:56 Dose: 40 mg Home Med (Patient's Own Medication) 1 unit PO Q12 [facility] Last Admin: 11/08/17 10:07 Dose: Not Given Meropenem 500 mg/ Sodium (Chloride) 100 mls @ 100 mls/hr IVPB Q8 [facility] PRN Reason: Protocol Last Admin: 11/08/17 12:33 Dose: 100 mls/hr Metronidazole (Flagyl 500mg/100ml Ns) 100 mls @ 100 mls/hr IVPB Q8 [facility] PRN Reason: Protocol Last Admin: 11/08/17 12:32 Dose: 100 mls/hr Vancomycin HCl 1 gm/ Sodium (Chloride) 250 mls @ 166.667 mls/hr IVPB Q48H [facility] PRN Reason: Protocol Last Admin: 11/08/17 09:57 Dose: 166.667 mls/hr Lactobacillus Acidophilus (Bacid Acidophilus) 1 cap PO BID [facility] Last Admin: 11/08/17 12:36 Dose: 1 cap Lamotrigine (Lamictal) 50 mg PO Q12@0930,2130 [facility] Last Admin: 11/08/17 09:56 Dose: 50 mg Metoprolol Tartrate (Lopressor) 5 mg IVP Q6 [facility] Last Admin: 11/08/17 09:56 Dose: 5 mg Sildenafil Citrate (Revatio) 20 mg PO BID [facility] Last Admin: 11/08/17 09:55 Dose: 20 mg Spironolactone (Aldactone) 25 mg PO BID [facility] Last Admin: 11/08/17 09:54 Dose: 25 mg - Labs Labs: 11/08/17 05:00 11/08/17 05:00 PT 14.9 Seconds (9.8-13.1) H 10/29/17 04:20 INR 1.3 (0.9-1.2) H 10/29/17 04:20 APTT 34.4 Seconds (25.6-37.1) 10/26/17 12:30 - Additional Findings Additional findings: Physical exam: Constitutional- awake and alert, watching TV, clinically appears much better. Head- NCAT, PERRL Eye- PERRL, normal accommodation ENT- normal exam, MMM. 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 As per , she feels patient had clonic movements before admission. Patient was found to be Hypothermic with SOB associated with cough unable to bring out phlegms, also with CXr showing bilateral pleural effusions and Infiltrates . INR 5.6, PTT 68.0, PT 65.9 His hospital course has been complicated by hypoxia requiring intubation, right pig tail catheter placement and left thoracentesis for pleural effusions. He has been followed by neuro , pulmonary , ID, nephro and cardiology . He has been on broad spectrum antibiotics for Aspiration Pneumonia and has been diuresing well and developed CANDELARIA and hypernatremia. At present more awake and alert , following commands. Tolerating High flow during the day 40 LPM FIO2 50 % and Bipap at night.Sputum cultures positive for Pseudomonas aerugoinosa. 1. Acute respiratory failure with hypoxia and hypercapnia etiology multi factorial -- pleural effusion , CHF, pneumonia was intubated and now extubated tolerating High Flow w Vapotherm 40 LPM on FIO2 50 % and BIPAP at night s/p multiple thoracentheis with pig tail placement . Left pigtail with 30 cc output last 24 hours Sputum cx positive for pseudomonas ID on consult. On meropenem and vanco IV as well as Flagyl. Continue duonebs CXR showed improvement of infiltrates and minimal pleural effusion Aspiration precautions since patient failed swallow eval NGT in place with feeding Vital 1.0 with no residuals. refused peg placement pulmonary on consult following 2. Aspiration pneumonia Acute ID and pulmonary on consult s/p BAL sputum cx positive for Pseudomonas On Vanco and meropenem 3.Altered mental status-- improving unclear etiology possibly Metabolic encephalopathy due to hypoxemia, pneumonia or related to uncontrolled seizures CT head showed no acute pathology Neurology consulted Lamictal 50 mg po Q12 hours seizure precautions Today more awake and alert , following commands Continue Bipap and High flow as ordered on IV antibiotics 4. Pleural effusion, bilateral s/p mulitiple thoracenthesis both right and left by IR and chest tube placement by CTS At present left pig tail in place with 30 cc input last 24 hours pulmonary and CTS on consult 5. Diastolic CHF, acute on chronic with pulmonary hypertension Acute. slowly improving cardiology on board Diuretics on hold due to worsening renal function and hypernatremia low salt diet on Sildenafil for pulmonary hypertension Continue Lasix as per nephrology Continue spironolactone 6. A-fib Chronic , better controlled cardiology on consult Dr. Castro s/p STEVEN and elective cardioversion on cardizem and metoprolol IV On Eliquis for anticoagulation 7.CANDELARIA (acute kidney injury)- resolving stable improved Nephrology on consult 8. Hypernatremia resolved due to dehydration low salt diet 9. HTN (hypertension) Chronic , controlled on Metoprolol, cardizem and spironolactone 10. Hx of seizure disorder Chronic neurology consulted lamictal dose 50mg Q12 hours 11. Anemia of chronic disease- improving slowly Hgb 9.8->9.3 Today, stable Monitor for now on ferrous sulfate 12.Coumadin toxicity INR was 5.6 on admission Coumadin on hold started Eliquis for anticoagulation 13. SUSAN (obstructive sleep apnea) Chronic BIPAP at night 14. C diff antigen positive Dr. Winslow on consultation Flagyl added 15. Failed swallow eval NGT in place with feeding Aspiration precautions refused peg 16. Frailty/ poor ,guarded prognosis patient is full code is surrogate decision maker 17. Vitamin D deficiency on ergocalciferol 18. DVT prophylaxis Eliquis
--- NOTE | 2017-11-09 00:40 | CP.PCM.PN ---
Subjective - Date & Time of Evaluation Date of Evaluation: 11/08/17 Time of Evaluation: 22:00 - Subjective Subjective: No major changes in his condition. He is lethargic with periods of wakefulness where he will be responsive and interactive. His Pulse is running fast at times Patient has no seizures. He is suffering from sleep apnea with a night time BIPAP Objective - Vital Signs/Intake and Output Vital Signs (last 24 hours): Temp Pulse Resp BP Pulse Ox 98.6 F 81 24 127/78 100 11/08/17 20:00 11/08/17 23:54 11/08/17 23:53 11/08/17 23:07 11/08/17 22:00 Intake and Output: 11/08/17 11/09/17 18:59 06:59 Intake Total 1250 310 Output Total 1300 Balance -50 310 - Medications Medications: Current Medications Acetaminophen (Tylenol 650mg/20.3ml Solution Ud) 650 mg PO Q6 PRN PRN Reason: Temperature Last Admin: 11/01/17 09:32 Dose: 650 mg Acetazolamide (Diamox 250 Mg Tab) 250 mg PO BID [facility] Last Admin: 11/08/17 16:09 Dose: 250 mg Apixaban (Eliquis) 2.5 mg PO BID [facility] PRN Reason: Protocol Last Admin: 11/08/17 17:02 Dose: 2.5 mg Cholecalciferol (Vitamin D) 5,000 intlu PO DAILY [facility] Last Admin: 11/08/17 09:58 Dose: 5,000 intlu Collagenase (Santyl) 1 applic TOP DAILY [facility] Last Admin: 11/08/17 10:07 Dose: 1 appl Diltiazem HCl (Cardizem) 60 mg PO 0300,0900,1500,2100 [facility] Last Admin: 11/08/17 23:07 Dose: 60 mg Dimethicone (Proshield Plus Skin Protectant) 1 applic TOP Q8 [facility] Last Admin: 11/08/17 16:11 Dose: 1 applic Ferrous Gluconate (Fergon) 324 mg PO DAILY [facility] Last Admin: 11/08/17 10:07 Dose: 324 mg Furosemide (Lasix) 40 mg IVP DAILY [facility] Last Admin: 11/08/17 09:56 Dose: 40 mg Home Med (Patient's Own Medication) 1 unit PO Q12 [facility] Last Admin: 11/08/17 21:42 Dose: Not Given Meropenem 500 mg/ Sodium (Chloride) 100 mls @ 100 mls/hr IVPB Q8 [facility] PRN Reason: Protocol Last Admin: 11/08/17 16:10 Dose: 100 mls/hr Metronidazole (Flagyl 500mg/100ml Ns) 100 mls @ 100 mls/hr IVPB Q8 [facility] PRN Reason: Protocol Last Admin: 11/08/17 16:10 Dose: 100 mls/hr Vancomycin HCl 1 gm/ Sodium (Chloride) 250 mls @ 166.667 mls/hr IVPB Q48H [facility] PRN Reason: Protocol Last Admin: 11/08/17 09:57 Dose: 166.667 mls/hr Lactobacillus Acidophilus (Bacid Acidophilus) 1 cap PO BID [facility] Last Admin: 11/08/17 16:10 Dose: 1 cap Lamotrigine (Lamictal) 50 mg PO Q12@0930,2130 [facility] Last Admin: 11/08/17 21:47 Dose: 50 mg Metoprolol Tartrate (Lopressor) 5 mg IVP Q6 [facility] Last Admin: 11/08/17 21:46 Dose: 5 mg Sildenafil Citrate (Revatio) 20 mg PO BID [facility] Last Admin: 11/08/17 16:12 Dose: 20 mg Spironolactone (Aldactone) 25 mg PO BID [facility] Last Admin: 11/08/17 16:09 Dose: 25 mg - Labs Labs: 11/08/17 05:00 11/08/17 05:00 PT 14.9 Seconds (9.8-13.1) H 10/29/17 04:20 INR 1.3 (0.9-1.2) H 10/29/17 04:20 APTT 34.4 Seconds (25.6-37.1) 10/26/17 12:30 Assessment and Plan (1) CANDELARIA (acute kidney injury) Status: Resolved (2) Acute respiratory failure Status: Acute (3) Altered mental status Status: Deleted (4) Pleural effusion, bilateral Status: Acute (5) Pneumonia Status: Acute (6) Seizure disorder Status: Suspected (7) Encephalopathy Status: Acute
[2017-11-09] MEDS: Proshield Plus GEL TOP SCH ×3 (01:28→16:50)
[2017-11-09] MEDS: metroNIDAZOLE 500mg/100ml NS 100 ML IVPB SCH ×3 (01:28→16:49)
[2017-11-09] MEDS: Meropenem 500 MG in Sodium Chloride 0.9% 100 ML IVPB SCH ×3 (01:31→16:50)
[2017-11-09] MEDS: Metoprolol 1 mg/ml Inj IVP SCH ×4 (04:22→22:50)
[2017-11-09 06:32] LABS: EOS # 0.2 K/uL (0.0-0.7); EOS % 3.1 % (0.0-4.0); LYMPH # 3.2 K/uL (1.0-4.3); LYMPH % 42.2 % (20.0-40.0); MEAN CELL VOLUME 94.9 fl (80.0-94.0); MEAN CORPUSCULAR HEMOGLOBIN 30.4 pg (27.0-31.0); MEAN CORPUSCULAR HGB CONC 32.1 g/dL (33.0-37.0); MEAN PLATELET VOLUME 7.5 fl (7.2-11.7); MONO # 1.1 K/uL (0.0-0.8); MONO % 14.1 % (0.0-10.0); NEUT # 3.1 K/uL (1.8-7.0); NEUT % 40.6 % (50.0-75.0); RBC 2.95 Mil/uL (4.40-5.90); WHITE BLOOD COUNT 7.7 K/uL (4.8-10.8)
[2017-11-09 06:45] LABS: ALB/GLOB RATIO 0.6 (1.0-2.1); ALBUMIN 2.5 g/dL (3.5-5.0); ALT/SGPT 27 U/L (21-72); AST/SGOT 29 U/L (17-59); BLOOD UREA NITROGEN 29 mg/dl (9-20); CALCIUM 8.4 mg/dL (8.4-10.2); GFR AFRICAN-AMERICAN > 60; GFR NON-AFRICAN AMERICAN > 60
[2017-11-09] MEDS: Sildenafil 20 MG TAB PO SCH ×2 (09:00→16:51)
[2017-11-09] MEDS: Lactobacillus Acidophilus 500 MU Cap PO SCH ×2 (09:01→16:47)
[2017-11-09] MEDS: Cholecalciferol 1,000 INTLU TAB PO SCH (09:01)
[2017-11-09] MEDS: METOPROLOL SUCCINATE 50 MG PO SCH ×2 (09:02→20:13)
[2017-11-09] MEDS: Santyl Collagenase OINTMENT TOP SCH (09:03)
--- NOTE | 2017-11-09 09:42 | CP.CCUPN ---
CCU Subjective - Physician Review Events Since Last Encounter (Free Text): 11/09/17 09:35 Alert and awake, responsive, in no distress, BP stable, afebrile, labs have improved. Left sided adan tail CT. CCU Objective - Vital Signs / Intake & Output Vital Signs (Last 4 hours): Vital Signs Temp Pulse Resp BP Pulse Ox 11/09/17 09:00 82 120/53 L 11/09/17 08:00 96.5 F L 68 21 124/67 100 11/09/17 07:44 14 11/09/17 06:00 78 24 129/78 100 Intake and Output (Last 8hrs): Intake & Output 11/08/17 11/09/17 11/09/17 22:59 06:59 14:59 Intake Total 690 760 Output Total 1300 900 Balance -610 -140 Intake: Intake, Piggyback 200 Tube Feeding 490 560 Free Water Flush 200 Output: Urine 1300 900 Urethral (Wang) 1300 900 Other: # Bowel Movements 2 1 - Physical Exam Narrative Physical Exam (Free Text): 11/09/17 09:36 P/E Neck: No JVD Lungs: decreased breath sounds, left base Heart: no gallop, Abdomen: soft, non-tender Ext: no edema Head: Positive for: Atraumatic, Normocephalic, Other (NG tube) Pupils: Positive for: PERRL, Sluggish Extroacular Muscles: Positive for: EOMI Conjunctiva: Positive for: Normal. Negative for: Icteric Ears: Positive for: Normal Mouth: Positive for: Moist Mucous Membranes Pharnyx: Negative for: ERYTHEMA Neck: Positive for: Normal Range of Motion. Negative for: JVD Respiratory/Chest: Positive for: Good Air Exchange, Respiratory Distress, Decreased Breath Sounds, Rhonchi (upper airway rhonchi), Tachypneic. Negative for: Accessory Muscle Use, Wheezes Cardiovascular: Positive for: Murmurs, Irregular Rhythm, Peripheal Pulses Present, Tachycardic. Negative for: Normal S1, S2, Rub Abdomen: Positive for: Normal Bowel Sounds. Negative for: Tenderness, Distention, Peritoneal Signs Upper Extremity: Positive for: Edema Lower Extremity: Positive for: Edema, NORMAL PULSES. Negative for: CALF TENDERNESS, Cyanosis Neurological: Positive for: Other (withdraws to deep pain) Skin: Positive for: Warm, Dry. Negative for: Rashes Psychiatric: Positive for: Alert, Lethargic. Negative for: Oriented x 3 - Medications Active Medications: Active Medications Generic Name Dose Route Start Last Admin Trade Name Freq PRN Reason Stop Dose Admin Acetaminophen 650 mg 10/25/17 16:16 11/01/17 09:32 Tylenol 650mg/20.3ml Solution Ud PO 650 mg Q6 PRN Administration Temperature Acetazolamide 250 mg 11/08/17 17:00 11/09/17 09:00 Diamox 250 Mg Tab PO 250 mg BID [facility] Administration Apixaban 2.5 mg 11/08/17 17:00 11/09/17 09:00 Eliquis PO 2.5 mg BID [facility] Administration Protocol Cholecalciferol 5,000 intlu 10/18/17 09:00 11/09/17 09:01 Vitamin D PO 5,000 intlu DAILY [facility] Administration Collagenase 1 applic 11/01/17 09:00 11/09/17 09:03 Santyl TOP 1 appl DAILY [facility] Administration Diltiazem HCl 60 mg 11/08/17 08:00 11/09/17 09:00 Cardizem PO 60 mg 0300,0900,1500,2100 [facility] Administration Dimethicone 1 applic 10/23/17 09:00 11/09/17 09:03 Proshield Plus Skin Protectant TOP 1 applic Q8 [facility] Administration Ferrous Gluconate 324 mg 10/24/17 09:00 11/09/17 09:00 Fergon PO 324 mg DAILY [facility] Administration Furosemide 40 mg 11/04/17 09:00 11/08/17 09:56 Lasix IVP 40 mg DAILY [facility] Administration Home Med 1 unit 11/07/17 21:00 11/09/17 09:02 Patient's Own Medication PO Not Given Q12 [facility] Meropenem 500 mg/ Sodium 100 mls @ 100 mls/hr 10/31/17 12:30 11/09/17 09:01 Chloride IVPB 100 mls/hr Q8 [facility] Administration Protocol Metronidazole 100 mls @ 100 mls/hr 11/01/17 17:00 11/09/17 09:01 Flagyl 500mg/100ml Ns IVPB 100 mls/hr Q8 [facility] Administration Protocol Vancomycin HCl 1 gm/ Sodium 250 mls @ 166.667 mls/hr 11/02/17 09:00 11/08/17 09:57 Chloride IVPB 166.667 mls/hr Q48H [facility] Administration Protocol Lactobacillus Acidophilus 1 cap 10/08/17 09:00 11/09/17 09:01 Bacid Acidophilus PO 1 cap BID [facility] Administration Lamotrigine 50 mg 10/31/17 21:30 11/09/17 09:01 Lamictal PO 50 mg Q12@0930,2130 [facility] Administration Metoprolol Tartrate 5 mg 10/31/17 23:21 11/09/17 04:22 Lopressor IVP 5 mg Q6 [facility] Administration Sildenafil Citrate 20 mg 11/01/17 09:00 11/09/17 09:00 Revatio PO 20 mg BID [facility] Administration Spironolactone 25 mg 11/07/17 17:00 11/09/17 09:01 Aldactone PO 25 mg BID [facility] Administration - Patient Studies Lab Studies: Lab Studies 11/09/17 11/09/17 Range/Units 05:30 05:30 WBC 7.7 (4.8-10.8) K/uL RBC 2.95 L (4.40-5.90) Mil/uL Hgb 9.0 L (12.0-18.0) g/dL Hct 28.0 L (35.0-51.0) % MCV 94.9 H (80.0-94.0) fl MCH 30.4 (27.0-31.0) pg MCHC 32.1 L (33.0-37.0) g/dL RDW 22.0 H (11.5-14.5) % Plt Count 467 H (130-400) K/uL MPV 7.5 (7.2-11.7) fl Neut % (Auto) 40.6 L (50.0-75.0) % Lymph % (Auto) 42.2 H (20.0-40.0) % [place] % (Auto) 14.1 H (0.0-10.0) % Eos % (Auto) 3.1 (0.0-4.0) % Baso % (Auto) 0.0 (0.0-2.0) % Neut # 3.1 (1.8-7.0) K/uL Lymph # 3.2 (1.0-4.3) K/uL [place] # 1.1 H (0.0-0.8) K/uL Eos # 0.2 (0.0-0.7) K/uL Baso # 0.0 (0.0-0.2) K/uL Sodium 135 (132-148) mmol/l Potassium 4.4 (3.6-5.0) MMOL/L Chloride 96 L (98-107) mmol/L Carbon Dioxide 36 H (22-30) mmol/L Anion Gap 7 L (10-20) BUN 29 H (9-20) mg/dl Creatinine 0.8 (0.8-1.5) mg/dl Est GFR ( Amer) > 60 Est GFR (Non-Af Amer) > 60 Random Glucose 121 H (75-110) mg/dL Calcium 8.4 (8.4-10.2) mg/dL Total Bilirubin 0.2 (0.2-1.3) mg/dl AST 29 (17-59) U/L ALT 27 (21-72) U/L Alkaline Phosphatase 98 (38-126) U/L Total Protein 6.4 (6.3-8.2) G/DL Albumin 2.5 L (3.5-5.0) g/dL Globulin 3.9 (2.2-3.9) gm/dL Albumin/Globulin Ratio 0.6 L (1.0-2.1) Laboratory Results - last 24 hr 11/09/17 11/09/17 05:30 05:30 WBC 7.7 RBC 2.95 L Hgb 9.0 L Hct 28.0 L MCV 94.9 H MCH 30.4 MCHC 32.1 L RDW 22.0 H Plt Count 467 H MPV 7.5 Neut % (Auto) 40.6 L Lymph % (Auto) 42.2 H [place] % (Auto) 14.1 H Eos % (Auto) 3.1 Baso % (Auto) 0.0 Neut # 3.1 Lymph # 3.2 [place] # 1.1 H Eos # 0.2 Baso # 0.0 Sodium 135 Potassium 4.4 Chloride 96 L Carbon Dioxide 36 H Anion Gap 7 L BUN 29 H Creatinine 0.8 Est GFR ( Amer) > 60 Est GFR (Non-Af Amer) > 60 Random Glucose 121 H Calcium 8.4 Total Bilirubin 0.2 AST 29 ALT 27 Alkaline Phosphatase 98 Total Protein 6.4 Albumin 2.5 L Globulin 3.9 Albumin/Globulin Ratio 0.6 L Fingerstick Blood Sugar Results: 83 Assessment/Plan - Assessment and Plan (Free Text) Assessment: Assessment/Plan 11/09/17 (1) Acute respiratory failure with hypoxia Current Visit: Yes Status: Acute Priority: High Comment: Acute hypercarbic and Hypoxemic respiratory failure: Improved, extubated . Resp failure was secondary to aspiration pneumonia with pleural effusion in the setting of severe Respiratory muscle weakness Continue :IV Vancomycin, Meropenem and Metronidazole Gentle Diuresis with Aldactone and IV lasix 40 mg daily Strict I&O, negative fluid balance Aggressive pulmonary toilet, chest PT, suctioning nebulizer treatment Maintain aspiration precautions GI/DVT PPX Can be transferred to tele (2) CANDELARIA (acute kidney injury) Current Visit: Yes Status: Deleted Priority: High Comment: renal function improving , has ATN Off all nephrotoxic medications Renally adjust medication dose (3) Altered mental status Current Visit: Yes Status: Deleted Priority: High Comment: Improved , More awake, interactive Toxic/metabolic encephalopathy, multifactorial in the sitting of Acute hypercarbic and Hypoxemic respiratory failure, pneumonia, uremia , sepsis (4) Pleural effusion, bilateral Current Visit: Yes Status: Acute Priority: High Comment: corrected coagulopathy Still has left pig tail CT, eric, minimum (5) A-fib Current Visit: No Status: Chronic Priority: High Comment: Continue IV Metoprolol and cardiazem 30 mg PO Q 6H HR better Resumed AC with Eliquis (6) Pulmonary hypertension Current Visit: Yes Status: Acute Comment: Continue Revatio 20 mg PO BID (7) Seizure disorder Current Visit: No Status: Chronic Priority: Medium Comment: Continue LamoTRIgine [Lamictal] 25 mg BID Following is notes from Dr Spencer , who saw the patient and spoke to his yesterday 11/08 "Attempted to discuss with the at bedside the possibility of transferring patient to telemetry since he clinically and respiratory status better, I attempted to review the rationale, risks, and alternatives to treatment plans, However she got very angry, claimed that this is not good for him and requested him to stay in ICU till the PMD return next week ".
--- NOTE | 2017-11-09 11:11 | RAD ---
HISTORY: chest tube. COMPARISON: 11/06/2017 FINDINGS: LUNGS: No active pulmonary disease. PLEURA: Small bilateral pleural effusion. Probable intra fissure oral fluid mid right lung. No pneumothorax. CARDIOVASCULAR: Permanent pacemaker. NG tube. Right PICC catheter, unchanged. OSSEOUS STRUCTURES: No significant abnormalities. VISUALIZED UPPER ABDOMEN: Normal. OTHER FINDINGS: None. IMPRESSION: Small bilateral pleural effusion. No infiltrate. Lines and tubes unchanged.
--- NOTE | 2017-11-09 14:15 | CP.PCM.PN ---
Subjective - Date & Time of Evaluation Date of Evaluation: 11/09/17 Time of Evaluation: 12:00 - Subjective Subjective: Hospitalist covering for Dr. Escamilla Patient unchanged from previous days. Sleeping comfortably with no complaints. is at bedside. No new changes from yesterday. No acute events as per nursing staff. Objective - Vital Signs/Intake and Output Vital Signs (last 24 hours): Temp Pulse Resp BP Pulse Ox 98.4 F 71 23 112/56 L 100 11/09/17 12:00 11/09/17 12:00 11/09/17 12:53 11/09/17 12:00 11/09/17 12:00 Intake and Output: 11/09/17 11/09/17 06:59 18:59 Intake Total 1070 200 Output Total 900 Balance 170 200 - Medications Medications: Current Medications Acetaminophen (Tylenol 650mg/20.3ml Solution Ud) 650 mg PO Q6 PRN PRN Reason: Temperature Last Admin: 11/01/17 09:32 Dose: 650 mg Acetazolamide (Diamox 250 Mg Tab) 250 mg PO BID [facility] Last Admin: 11/09/17 09:00 Dose: 250 mg Apixaban (Eliquis) 2.5 mg PO BID [facility] PRN Reason: Protocol Last Admin: 11/09/17 09:00 Dose: 2.5 mg Cholecalciferol (Vitamin D) 5,000 intlu PO DAILY [facility] Last Admin: 11/09/17 09:01 Dose: 5,000 intlu Collagenase (Santyl) 1 applic TOP DAILY [facility] Last Admin: 11/09/17 09:03 Dose: 1 appl Diltiazem HCl (Cardizem) 60 mg PO 0300,0900,1500,2100 [facility] Last Admin: 11/09/17 09:00 Dose: 60 mg Dimethicone (Proshield Plus Skin Protectant) 1 applic TOP Q8 [facility] Last Admin: 11/09/17 09:03 Dose: 1 applic Ferrous Gluconate (Fergon) 324 mg PO DAILY [facility] Last Admin: 11/09/17 09:00 Dose: 324 mg Furosemide (Lasix) 40 mg IVP DAILY [facility] Last Admin: 11/09/17 08:45 Dose: 40 mg Home Med (Patient's Own Medication) 1 unit PO Q12 [facility] Last Admin: 11/09/17 09:02 Dose: Not Given Meropenem 500 mg/ Sodium (Chloride) 100 mls @ 100 mls/hr IVPB Q8 [facility] PRN Reason: Protocol Last Admin: 11/09/17 09:01 Dose: 100 mls/hr Metronidazole (Flagyl 500mg/100ml Ns) 100 mls @ 100 mls/hr IVPB Q8 [facility] PRN Reason: Protocol Last Admin: 11/09/17 09:01 Dose: 100 mls/hr Vancomycin HCl 1 gm/ Sodium (Chloride) 250 mls @ 166.667 mls/hr IVPB Q48H [facility] PRN Reason: Protocol Last Admin: 11/08/17 09:57 Dose: 166.667 mls/hr Lactobacillus Acidophilus (Bacid Acidophilus) 1 cap PO BID [facility] Last Admin: 11/09/17 09:01 Dose: 1 cap Lamotrigine (Lamictal) 50 mg PO Q12@0930,2130 [facility] Last Admin: 11/09/17 09:01 Dose: 50 mg Metoprolol Tartrate (Lopressor) 5 mg IVP Q6 [facility] Last Admin: 11/09/17 08:50 Dose: 5 mg Sildenafil Citrate (Revatio) 20 mg PO BID [facility] Last Admin: 11/09/17 09:00 Dose: 20 mg Spironolactone (Aldactone) 25 mg PO BID [facility] Last Admin: 11/09/17 09:01 Dose: 25 mg - Labs Labs: 11/09/17 05:30 11/09/17 05:30 PT 14.9 Seconds (9.8-13.1) H 10/29/17 04:20 INR 1.3 (0.9-1.2) H 10/29/17 04:20 APTT 34.4 Seconds (25.6-37.1) 10/26/17 12:30 - Additional Findings Additional findings: Physical exam: Constitutional- awake and alert, watching TV, clinically appears much better. Head- NCAT, PERRL Eye- PERRL, normal accommodation ENT- normal exam, MMM. 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 As per , she feels patient had clonic movements before admission. Patient was found to be Hypothermic with SOB associated with cough unable to bring out phlegms, also with CXr showing bilateral pleural effusions and Infiltrates . INR 5.6, PTT 68.0, PT 65.9 His hospital course has been complicated by hypoxia requiring intubation, right pig tail catheter placement and left thoracentesis for pleural effusions. He has been followed by neuro , pulmonary , ID, nephro and cardiology . He has been on broad spectrum antibiotics for Aspiration Pneumonia and has been diuresing well and developed CANDELARIA and hypernatremia. At present more awake and alert , following commands. Tolerating High flow during the day 40 LPM FIO2 50 % and Bipap at night.Sputum cultures positive for Pseudomonas aerugoinosa. 1. Acute respiratory failure with hypoxia and hypercapnia etiology multi factorial -- pleural effusion , CHF, pneumonia was intubated and now extubated tolerating High Flow w Vapotherm 40 LPM on FIO2 50 % and BIPAP at night s/p multiple thoracentheis with pig tail placement . Left pigtail with 30 cc output last 24 hours Sputum cx positive for pseudomonas ID on consult. On meropenem and vanco IV as well as Flagyl. Continue duonebs CXR showed improvement of infiltrates and minimal pleural effusion Aspiration precautions since patient failed swallow eval NGT in place with feeding Vital 1.0 with no residuals. refused peg placement pulmonary on consult following 2. Aspiration pneumonia Acute ID and pulmonary on consult s/p BAL sputum cx positive for Pseudomonas On Vanco and meropenem 3.Altered mental status-- improving unclear etiology possibly Metabolic encephalopathy due to hypoxemia, pneumonia or related to uncontrolled seizures CT head showed no acute pathology Neurology consulted Lamictal 50 mg po Q12 hours seizure precautions Today more awake and alert , following commands Continue Bipap and High flow as ordered on IV antibiotics 4. Pleural effusion, bilateral s/p mulitiple thoracenthesis both right and left by IR and chest tube placement by CTS At present left pig tail in place with 30 cc input last 24 hours pulmonary and CTS on consult 5. Diastolic CHF, acute on chronic with pulmonary hypertension Acute. slowly improving cardiology on board Diuretics on hold due to worsening renal function and hypernatremia low salt diet on Sildenafil for pulmonary hypertension Continue Lasix as per nephrology Continue spironolactone 6. A-fib Chronic , better controlled cardiology on consult Dr. Castro s/p STEVEN and elective cardioversion on cardizem and metoprolol IV On Eliquis for anticoagulation 7.CANDELARIA (acute kidney injury)- resolving stable improved Nephrology on consult 8. Hypernatremia resolved due to dehydration low salt diet 9. HTN (hypertension) Chronic , controlled on Metoprolol, cardizem and spironolactone 10. Hx of seizure disorder Chronic neurology consulted lamictal dose 50mg Q12 hours 11. Anemia of chronic disease- improving slowly Hgb 9.8->9.3 Today, stable Monitor for now on ferrous sulfate 12.Coumadin toxicity INR was 5.6 on admission Coumadin on hold started Eliquis for anticoagulation 13. SUSAN (obstructive sleep apnea) Chronic BIPAP at night 14. C diff antigen positive Dr. Winslow on consultation Flagyl added 15. Failed swallow eval NGT in place with feeding Aspiration precautions refused peg 16. Frailty/ poor ,guarded prognosis patient is full code is surrogate decision maker 17. Vitamin D deficiency on ergocalciferol 18. DVT prophylaxis Eliquis
--- NOTE | 2017-11-09 23:34 | CP.PCM.PN ---
Subjective - Date & Time of Evaluation Date of Evaluation: 11/09/17 Time of Evaluation: 22:00 - Subjective Subjective: Patient is more stable than yesterday. Hospitalist is suggesting to move him from the ICU to the telemetry unit. He has periods where he is interactive and able to answer simple questions, " I am good" The Vitals are normal. The is still concerned about the Lamictal dose. He has no seizures and is on Lamictal 50 mg Q 12 hrs. The does not accept to increase it to a therapeutic dose. She is concerned that it might harm him. Objective - Vital Signs/Intake and Output Vital Signs (last 24 hours): Temp Pulse Resp BP Pulse Ox 98.4 F 77 14 109/53 L 97 11/09/17 20:00 11/09/17 23:19 11/09/17 23:19 11/09/17 22:00 11/09/17 22:00 Intake and Output: 11/09/17 11/10/17 18:59 06:59 Intake Total 1440 0 Output Total 1500 Balance -60 0 - Medications Medications: Current Medications Acetaminophen (Tylenol 650mg/20.3ml Solution Ud) 650 mg PO Q6 PRN PRN Reason: Temperature Last Admin: 11/01/17 09:32 Dose: 650 mg Acetazolamide (Diamox 250 Mg Tab) 250 mg PO BID [facility] Last Admin: 11/09/17 16:48 Dose: 250 mg Apixaban (Eliquis) 2.5 mg PO BID [facility] PRN Reason: Protocol Last Admin: 11/09/17 16:49 Dose: 2.5 mg Cholecalciferol (Vitamin D) 5,000 intlu PO DAILY [facility] Last Admin: 11/09/17 09:01 Dose: 5,000 intlu Collagenase (Santyl) 1 applic TOP DAILY [facility] Last Admin: 11/09/17 09:03 Dose: 1 appl Diltiazem HCl (Cardizem) 60 mg PO 0300,0900,1500,2100 [facility] Last Admin: 11/09/17 20:46 Dose: 60 mg Dimethicone (Proshield Plus Skin Protectant) 1 applic TOP Q8 [facility] Last Admin: 11/09/17 16:50 Dose: 1 applic Ferrous Gluconate (Fergon) 324 mg PO DAILY [facility] Last Admin: 11/09/17 09:00 Dose: 324 mg Furosemide (Lasix) 40 mg IVP DAILY [facility] Last Admin: 11/09/17 08:45 Dose: 40 mg Home Med (Patient's Own Medication) 1 unit PO Q12 [facility] Last Admin: 11/09/17 20:13 Dose: Not Given Meropenem 500 mg/ Sodium (Chloride) 100 mls @ 100 mls/hr IVPB Q8 [facility] PRN Reason: Protocol Last Admin: 11/09/17 16:50 Dose: 100 mls/hr Metronidazole (Flagyl 500mg/100ml Ns) 100 mls @ 100 mls/hr IVPB Q8 [facility] PRN Reason: Protocol Last Admin: 11/09/17 16:49 Dose: 100 mls/hr Vancomycin HCl 1 gm/ Sodium (Chloride) 250 mls @ 166.667 mls/hr IVPB Q48H [facility] PRN Reason: Protocol Last Admin: 11/08/17 09:57 Dose: 166.667 mls/hr Lactobacillus Acidophilus (Bacid Acidophilus) 1 cap PO BID [facility] Last Admin: 11/09/17 16:47 Dose: 1 cap Lamotrigine (Lamictal) 50 mg PO Q12@0930,2130 [facility] Last Admin: 11/09/17 20:46 Dose: 50 mg Metoprolol Tartrate (Lopressor) 5 mg IVP Q6 [facility] Last Admin: 11/09/17 16:49 Dose: 5 mg Sildenafil Citrate (Revatio) 20 mg PO BID [facility] Last Admin: 11/09/17 16:51 Dose: 20 mg Spironolactone (Aldactone) 25 mg PO BID [facility] Last Admin: 11/09/17 16:47 Dose: 25 mg - Labs Labs: 11/09/17 05:30 11/09/17 05:30 PT 14.9 Seconds (9.8-13.1) H 10/29/17 04:20 INR 1.3 (0.9-1.2) H 10/29/17 04:20 APTT 34.4 Seconds (25.6-37.1) 10/26/17 12:30 Assessment and Plan (1) CANDELARIA (acute kidney injury) Status: Resolved (2) Acute respiratory failure Status: Acute (3) Altered mental status Status: Deleted (4) Pleural effusion, bilateral Status: Acute (5) Pneumonia Status: Acute (6) Seizure disorder Status: Suspected (7) Encephalopathy Status: Acute
[2017-11-10] MEDS: Proshield Plus GEL TOP SCH ×3 (01:00→16:45)
[2017-11-10] MEDS: metroNIDAZOLE 500mg/100ml NS 100 ML IVPB SCH ×3 (01:22→16:47)
[2017-11-10] MEDS: Meropenem 500 MG in Sodium Chloride 0.9% 100 ML IVPB SCH ×3 (01:22→16:50)
[2017-11-10] MEDS: Metoprolol 1 mg/ml Inj IVP SCH ×4 (03:00→22:06)
[2017-11-10 07:00] LABS: HEMOGLOBIN 9.1 g/dL (12.0-18.0); MEAN CELL VOLUME 94.1 fl (80.0-94.0); MEAN CORPUSCULAR HEMOGLOBIN 30.2 pg (27.0-31.0); MEAN CORPUSCULAR HGB CONC 32.1 g/dL (33.0-37.0); RBC 3.01 Mil/uL (4.40-5.90); RED CELL DISTRIBUTION WIDTH 21.4 % (11.5-14.5); WHITE BLOOD COUNT 7.4 K/uL (4.8-10.8)
[2017-11-10 07:05] LABS: BLOOD UREA NITROGEN 31 mg/dl (9-20); CALCIUM 8.7 mg/dL (8.4-10.2); GFR AFRICAN-AMERICAN > 60; GFR NON-AFRICAN AMERICAN > 60
[2017-11-10] MEDS: Sildenafil 20 MG TAB PO SCH ×2 (08:39→16:44)
[2017-11-10] MEDS: Lactobacillus Acidophilus 500 MU Cap PO SCH ×2 (08:44→16:57)
[2017-11-10] MEDS: Santyl Collagenase OINTMENT TOP SCH (08:46)
[2017-11-10] MEDS: Cholecalciferol 1,000 INTLU TAB PO SCH (08:48)
--- NOTE | 2017-11-10 10:14 | CP.CCUPN ---
CCU Subjective - Physician Review Events Since Last Encounter (Free Text): 11/10/17 10:02 Has been stable, minimum drainage from left CT Good urine outout Pt is awake and responsive Stable CCU Objective - Vital Signs / Intake & Output Vital Signs (Last 4 hours): Vital Signs Temp Pulse Resp BP 11/10/17 08:46 124/74 11/10/17 08:41 76 124/74 11/10/17 08:00 97.1 F L 75 15 112/57 L 11/10/17 07:05 16 Intake and Output (Last 8hrs): Intake & Output 11/09/17 11/10/17 11/10/17 22:59 06:59 14:59 Intake Total 1140 400 770 Output Total 1500 1400 Balance -360 -1000 770 Intake: IV 0 0 Intake, Piggyback 300 200 Tube Feeding 840 770 Free Water Flush 200 Output: Chest Tube Drainage 0 0 Left Upper Posterior 0 0 Chest Urine 1500 1400 Urethral (Wang) 1500 1400 Other: # Bowel Movements 2 0 - Physical Exam Narrative Physical Exam (Free Text): 11/10/17 10:03 P/E Neck: No JVD Lungs: decreased breath sounds in the base Abdomen: soft, non-tender Ext; No edema Heart: No gallop Head: Positive for: Atraumatic, Normocephalic, Other (NG tube) Pupils: Positive for: PERRL, Sluggish Extroacular Muscles: Positive for: EOMI Conjunctiva: Positive for: Normal. Negative for: Icteric Ears: Positive for: Normal Mouth: Positive for: Moist Mucous Membranes Pharnyx: Negative for: ERYTHEMA Neck: Positive for: Normal Range of Motion. Negative for: JVD Respiratory/Chest: Positive for: Good Air Exchange, Respiratory Distress, Decreased Breath Sounds, Rhonchi (upper airway rhonchi), Tachypneic. Negative for: Accessory Muscle Use, Wheezes Cardiovascular: Positive for: Murmurs, Irregular Rhythm, Peripheal Pulses Present, Tachycardic. Negative for: Normal S1, S2, Rub Abdomen: Positive for: Normal Bowel Sounds. Negative for: Tenderness, Distention, Peritoneal Signs Upper Extremity: Positive for: Edema Lower Extremity: Positive for: Edema, NORMAL PULSES. Negative for: CALF TENDERNESS, Cyanosis Neurological: Positive for: Other (withdraws to deep pain) Skin: Positive for: Warm, Dry. Negative for: Rashes Psychiatric: Positive for: Alert, Lethargic. Negative for: Oriented x 3 - Medications Active Medications: Active Medications Generic Name Dose Route Start Last Admin Trade Name Freq PRN Reason Stop Dose Admin Acetaminophen 650 mg 10/25/17 16:16 11/01/17 09:32 Tylenol 650mg/20.3ml Solution Ud PO 650 mg Q6 PRN Administration Temperature Acetazolamide 250 mg 11/08/17 17:00 11/10/17 08:46 Diamox 250 Mg Tab PO 250 mg BID [facility] Administration Apixaban 2.5 mg 11/08/17 17:00 11/10/17 08:47 Eliquis PO 2.5 mg BID [facility] Administration Protocol Cholecalciferol 5,000 intlu 10/18/17 09:00 11/10/17 08:48 Vitamin D PO 5,000 intlu DAILY [facility] Administration Collagenase 1 applic 11/01/17 09:00 11/10/17 08:46 Santyl TOP 1 appl DAILY [facility] Administration Diltiazem HCl 60 mg 11/08/17 08:00 11/10/17 08:41 Cardizem PO 60 mg 0300,0900,1500,2100 [facility] Administration Dimethicone 1 applic 10/23/17 09:00 11/10/17 08:40 Proshield Plus Skin Protectant TOP 1 applic Q8 [facility] Administration Ferrous Gluconate 324 mg 10/24/17 09:00 11/10/17 08:47 Fergon PO 324 mg DAILY [facility] Administration Furosemide 40 mg 11/04/17 09:00 11/10/17 08:46 Lasix IVP 40 mg DAILY [facility] Administration Home Med 1 unit 11/07/17 21:00 11/09/17 20:13 Patient's Own Medication PO Not Given Q12 [facility] Meropenem 500 mg/ Sodium 100 mls @ 100 mls/hr 10/31/17 12:30 11/10/17 08:38 Chloride IVPB 100 mls/hr Q8 [facility] Administration Protocol Metronidazole 100 mls @ 100 mls/hr 11/01/17 17:00 11/10/17 08:32 Flagyl 500mg/100ml Ns IVPB 100 mls/hr Q8 [facility] Administration Protocol Vancomycin HCl 1 gm/ Sodium 250 mls @ 166.667 mls/hr 11/02/17 09:00 11/10/17 09:40 Chloride IVPB 166.667 mls/hr Q48H [facility] Administration Protocol Lactobacillus Acidophilus 1 cap 10/08/17 09:00 11/10/17 08:44 Bacid Acidophilus PO 1 cap BID [facility] Administration Lamotrigine 50 mg 10/31/17 21:30 11/10/17 08:44 Lamictal PO 50 mg Q12@0930,2130 [facility] Administration Metoprolol Tartrate 5 mg 10/31/17 23:21 11/10/17 03:00 Lopressor IVP 5 mg Q6 [facility] Administration Sildenafil Citrate 20 mg 11/01/17 09:00 11/10/17 08:39 Revatio PO 20 mg BID [facility] Administration Spironolactone 25 mg 11/07/17 17:00 11/10/17 08:47 Aldactone PO 25 mg BID [facility] Administration - Patient Studies Lab Studies: Lab Studies 11/10/17 11/10/17 Range/Units 05:30 05:30 WBC 7.4 (4.8-10.8) K/uL RBC 3.01 L (4.40-5.90) Mil/uL Hgb 9.1 L (12.0-18.0) g/dL Hct 28.4 L (35.0-51.0) % MCV 94.1 H (80.0-94.0) fl MCH 30.2 (27.0-31.0) pg MCHC 32.1 L (33.0-37.0) g/dL RDW 21.4 H (11.5-14.5) % Plt Count 488 H (130-400) K/uL Sodium 135 (132-148) mmol/l Potassium 4.6 (3.6-5.0) MMOL/L Chloride 99 (98-107) mmol/L Carbon Dioxide 32 H (22-30) mmol/L Anion Gap 9 L (10-20) BUN 31 H (9-20) mg/dl Creatinine 0.8 (0.8-1.5) mg/dl Est GFR ( Amer) > 60 Est GFR (Non-Af Amer) > 60 Random Glucose 123 H (75-110) mg/dL Calcium 8.7 (8.4-10.2) mg/dL Laboratory Results - last 24 hr 11/10/17 11/10/17 05:30 05:30 WBC 7.4 RBC 3.01 L Hgb 9.1 L Hct 28.4 L MCV 94.1 H MCH 30.2 MCHC 32.1 L RDW 21.4 H Plt Count 488 H Sodium 135 Potassium 4.6 Chloride 99 Carbon Dioxide 32 H Anion Gap 9 L BUN 31 H Creatinine 0.8 Est GFR ( Amer) > 60 Est GFR (Non-Af Amer) > 60 Random Glucose 123 H Calcium 8.7 Fingerstick Blood Sugar Results: 83 Assessment/Plan - Assessment and Plan (Free Text) Assessment: Assessment/Plan 11/10/17 (1) Acute respiratory failure with hypoxia Current Visit: Yes Status: Acute Priority: High Comment: Acute hypercarbic and Hypoxemic respiratory failure: Improved, extubated , no on FNC, BiPAP at night Continue :IV Vancomycin, Meropenem and Metronidazole Gentle Diuresis with Aldactone and IV lasix 40 mg daily Strict I&O, negative fluid balance Aggressive pulmonary toilet, chest PT, suctioning nebulizer treatment Maintain aspiration precautions GI/DVT PPX Can be transferred to tele (2) CANDELARIA (acute kidney injury) Current Visit: Yes Status: Deleted Priority: High Comment: Improved Off all nephrotoxic medications (3) Altered mental status Current Visit: Yes Status: Deleted Priority: High Comment: Improved , More awake, interactive Cause of AMS was , Toxic/metabolic encephalopathy, multifactorial in the sitting of Acute hypercarbic and Hypoxemic respiratory failure, pneumonia, uremia , sepsis (4) Pleural effusion, bilateral Current Visit: Yes Status: Acute Priority: High Comment: corrected coagulopathy Still has left pig tail CT, eric, minimum 30 cc/ 24 H (5) A-fib Current Visit: No Status: Chronic Priority: High Comment: Continue IV Metoprolol and cardiazem 30 mg PO Q 6H HR better Resumed AC with Eliquis (6) Pulmonary hypertension Current Visit: Yes Status: Acute Comment: Continue Revatio 20 mg PO BID (7) Seizure disorder Current Visit: No Status: Chronic Priority: Medium Comment: Continue LamoTRIgine [Lamictal] 25 mg BID Following is notes from Dr Spencer , who saw the patient and spoke to his on 11/08 "Attempted to discuss with the at bedside the possibility of transferring patient to telemetry since he clinically and respiratory status better, I attempted to review the rationale, risks, and alternatives to treatment plans, However she got very angry, claimed that this is not good for him and requested him to stay in ICU till the PMD return next week ".
[2017-11-10] MEDS: METOPROLOL SUCCINATE 50 MG PO SCH ×2 (12:07→21:58)
--- NOTE | 2017-11-10 12:17 | CP.PCM.PN ---
Subjective - Date & Time of Evaluation Date of Evaluation: 11/10/17 Time of Evaluation: 08:00 - Subjective Subjective: awake alert NAD IV antibiotics renewed discussed with Dr Cole Objective - Vital Signs/Intake and Output Vital Signs (last 24 hours): Temp Pulse Resp BP Pulse Ox 97.4 F L 70 21 107/60 100 11/10/17 12:00 11/10/17 12:00 11/10/17 12:00 11/10/17 12:00 11/10/17 12:00 Intake and Output: 11/10/17 11/10/17 06:59 18:59 Intake Total 400 1454 Output Total 1400 50 Balance -1000 1404 - Medications Medications: Current Medications Acetaminophen (Tylenol 650mg/20.3ml Solution Ud) 650 mg PO Q6 PRN PRN Reason: Temperature Last Admin: 11/01/17 09:32 Dose: 650 mg Acetazolamide (Diamox 250 Mg Tab) 250 mg PO BID [facility] Last Admin: 11/10/17 08:46 Dose: 250 mg Apixaban (Eliquis) 2.5 mg PO BID [facility] PRN Reason: Protocol Last Admin: 11/10/17 08:47 Dose: 2.5 mg Cholecalciferol (Vitamin D) 5,000 intlu PO DAILY [facility] Last Admin: 11/10/17 08:48 Dose: 5,000 intlu Collagenase (Santyl) 1 applic TOP DAILY [facility] Last Admin: 11/10/17 08:46 Dose: 1 appl Diltiazem HCl (Cardizem) 60 mg PO 0300,0900,1500,2100 [facility] Last Admin: 11/10/17 08:41 Dose: 60 mg Dimethicone (Proshield Plus Skin Protectant) 1 applic TOP Q8 [facility] Last Admin: 11/10/17 08:40 Dose: 1 applic Ferrous Gluconate (Fergon) 324 mg PO DAILY [facility] Last Admin: 11/10/17 08:47 Dose: 324 mg Furosemide (Lasix) 40 mg IVP DAILY [facility] Last Admin: 11/10/17 08:46 Dose: 40 mg Home Med (Patient's Own Medication) 1 unit PO Q12 [facility] Last Admin: 11/10/17 12:07 Dose: Not Given Meropenem 500 mg/ Sodium (Chloride) 100 mls @ 100 mls/hr IVPB Q8 [facility] PRN Reason: Protocol Last Admin: 11/10/17 08:38 Dose: 100 mls/hr Metronidazole (Flagyl 500mg/100ml Ns) 100 mls @ 100 mls/hr IVPB Q8 [facility] PRN Reason: Protocol Last Admin: 11/10/17 08:32 Dose: 100 mls/hr Vancomycin HCl 1 gm/ Sodium (Chloride) 250 mls @ 166.667 mls/hr IVPB Q48H [facility] PRN Reason: Protocol Last Admin: 11/10/17 09:40 Dose: 166.667 mls/hr Lactobacillus Acidophilus (Bacid Acidophilus) 1 cap PO BID [facility] Last Admin: 11/10/17 08:44 Dose: 1 cap Lamotrigine (Lamictal) 50 mg PO Q12@0930,2130 [facility] Last Admin: 11/10/17 08:44 Dose: 50 mg Metoprolol Tartrate (Lopressor) 5 mg IVP Q6 [facility] Last Admin: 11/10/17 10:00 Dose: Not Given Sildenafil Citrate (Revatio) 20 mg PO BID [facility] Last Admin: 11/10/17 08:39 Dose: 20 mg Spironolactone (Aldactone) 25 mg PO BID [facility] Last Admin: 11/10/17 08:47 Dose: 25 mg - Labs Labs: 11/10/17 05:30 11/10/17 05:30 PT 14.9 Seconds (9.8-13.1) H 10/29/17 04:20 INR 1.3 (0.9-1.2) H 10/29/17 04:20 APTT 34.4 Seconds (25.6-37.1) 10/26/17 12:30 - Constitutional Appears: Non-toxic, Cachectic, Chronically Ill - Head Exam Head Exam: NORMOCEPHALIC - Eye Exam Eye Exam: PERRL. absent: Scleral icterus - ENT Exam ENT Exam: Mucous Membranes Dry - Neck Exam Neck Exam: absent: Lymphadenopathy - Respiratory Exam Respiratory Exam: Decreased Breath Sounds - Cardiovascular Exam Cardiovascular Exam: REGULAR RHYTHM - GI/Abdominal Exam GI & Abdominal Exam: Distended - Rectal Exam Rectal Exam: Deferred - Exam Exam: NORMAL INSPECTION - Extremities Exam Extremities Exam: absent: Pedal Edema - Back Exam Back Exam: absent: CVA tenderness (L), CVA tenderness (R) - Neurological Exam Neurological Exam: Alert, Awake Assessment and Plan (1) CANDELARIA (acute kidney injury) Status: Resolved (2) Acute respiratory failure Status: Acute (3) Altered mental status Status: Deleted (4) Diastolic CHF, acute on chronic Status: Acute (5) Pleural effusion, bilateral Status: Acute (6) Pneumonia Status: Acute (7) Aortic valve vegetation Status: Acute - Assessment and Plan (Free Text) Assessment: sepsis and pneumonia resolving cont rx for aortic valve vegetation- empiric Dr Castro following
--- NOTE | 2017-11-10 12:51 | CP.PCM.PN ---
Subjective - Date & Time of Evaluation Date of Evaluation: 11/10/17 Time of Evaluation: 13:00 - Subjective Subjective: Hospitalist covering for Dr. Escamilla Patient continues to be stable. No change from previous days in clinical status. No acute events overnight. Objective - Vital Signs/Intake and Output Vital Signs (last 24 hours): Temp Pulse Resp BP Pulse Ox 97.4 F L 70 21 107/60 100 11/10/17 12:00 11/10/17 12:00 11/10/17 12:00 11/10/17 12:00 11/10/17 12:00 Intake and Output: 11/10/17 11/10/17 06:59 18:59 Intake Total 400 1844 Output Total 1400 1550 Balance -1000 294 - Medications Medications: Current Medications Acetaminophen (Tylenol 650mg/20.3ml Solution Ud) 650 mg PO Q6 PRN PRN Reason: Temperature Last Admin: 11/01/17 09:32 Dose: 650 mg Acetazolamide (Diamox 250 Mg Tab) 250 mg PO BID [facility] Last Admin: 11/10/17 08:46 Dose: 250 mg Apixaban (Eliquis) 2.5 mg PO BID [facility] PRN Reason: Protocol Last Admin: 11/10/17 08:47 Dose: 2.5 mg Cholecalciferol (Vitamin D) 5,000 intlu PO DAILY [facility] Last Admin: 11/10/17 08:48 Dose: 5,000 intlu Collagenase (Santyl) 1 applic TOP DAILY [facility] Last Admin: 11/10/17 08:46 Dose: 1 appl Diltiazem HCl (Cardizem) 60 mg PO 0300,0900,1500,2100 [facility] Last Admin: 11/10/17 08:41 Dose: 60 mg Dimethicone (Proshield Plus Skin Protectant) 1 applic TOP Q8 [facility] Last Admin: 11/10/17 08:40 Dose: 1 applic Ferrous Gluconate (Fergon) 324 mg PO DAILY [facility] Last Admin: 11/10/17 08:47 Dose: 324 mg Furosemide (Lasix) 40 mg IVP DAILY [facility] Last Admin: 11/10/17 08:46 Dose: 40 mg Home Med (Patient's Own Medication) 1 unit PO Q12 [facility] Last Admin: 11/10/17 12:07 Dose: Not Given Meropenem 500 mg/ Sodium (Chloride) 100 mls @ 100 mls/hr IVPB Q8 [facility] PRN Reason: Protocol Last Admin: 11/10/17 08:38 Dose: 100 mls/hr Metronidazole (Flagyl 500mg/100ml Ns) 100 mls @ 100 mls/hr IVPB Q8 [facility] PRN Reason: Protocol Last Admin: 11/10/17 08:32 Dose: 100 mls/hr Vancomycin HCl 1 gm/ Sodium (Chloride) 250 mls @ 166.667 mls/hr IVPB Q48H [facility] PRN Reason: Protocol Last Admin: 11/10/17 09:40 Dose: 166.667 mls/hr Lactobacillus Acidophilus (Bacid Acidophilus) 1 cap PO BID [facility] Last Admin: 11/10/17 08:44 Dose: 1 cap Lamotrigine (Lamictal) 50 mg PO Q12@0930,2130 [facility] Last Admin: 11/10/17 08:44 Dose: 50 mg Metoprolol Tartrate (Lopressor) 5 mg IVP Q6 [facility] Last Admin: 11/10/17 10:00 Dose: Not Given Sildenafil Citrate (Revatio) 20 mg PO BID [facility] Last Admin: 11/10/17 08:39 Dose: 20 mg Spironolactone (Aldactone) 25 mg PO BID [facility] Last Admin: 11/10/17 08:47 Dose: 25 mg - Labs Labs: 11/10/17 05:30 11/10/17 05:30 PT 14.9 Seconds (9.8-13.1) H 10/29/17 04:20 INR 1.3 (0.9-1.2) H 10/29/17 04:20 APTT 34.4 Seconds (25.6-37.1) 10/26/17 12:30 - Additional Findings Additional findings: Physical exam: Constitutional- sleeping comfortably, easily arousable, responds appropriately Head- NCAT, PERRL Eye- PERRL, normal accommodation ENT- normal exam, MMM. 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 As per , she feels patient had clonic movements before admission. Patient was found to be Hypothermic with SOB associated with cough unable to bring out phlegms, also with CXr showing bilateral pleural effusions and Infiltrates . INR 5.6, PTT 68.0, PT 65.9 His hospital course has been complicated by hypoxia requiring intubation, right pig tail catheter placement and left thoracentesis for pleural effusions. He has been followed by neuro , pulmonary , ID, nephro and cardiology . He has been on broad spectrum antibiotics for Aspiration Pneumonia and has been diuresing well and developed CANDELARIA and hypernatremia. At present more awake and alert , following commands. Tolerating High flow during the day 40 LPM FIO2 50 % and Bipap at night.Sputum cultures positive for Pseudomonas aerugoinosa. 1. Acute respiratory failure with hypoxia and hypercapnia, improved etiology multi factorial -- pleural effusion , CHF, pneumonia was intubated and now extubated tolerating High Flow w Vapotherm 40 LPM on FIO2 50 % and BIPAP at night s/p multiple thoracentheis with pig tail placement . Left pigtail with 30 cc output last 24 hours Sputum cx positive for pseudomonas ID on consult. On meropenem and vanco IV as well as Flagyl. Continue duonebs CXR showed improvement of infiltrates and minimal pleural effusion Aspiration precautions since patient failed swallow eval NGT in place with feeding Vital 1.0 with no residuals. refused peg placement pulmonary on consult following 2. Aspiration pneumonia Acute ID and pulmonary on consult s/p BAL sputum cx positive for Pseudomonas On Vanco and meropenem 3.Altered mental status-- improving unclear etiology possibly Metabolic encephalopathy due to hypoxemia, pneumonia or related to uncontrolled seizures CT head showed no acute pathology Neurology consulted Lamictal 50 mg po Q12 hours seizure precautions Today more awake and alert , following commands Continue Bipap and High flow as ordered on IV antibiotics 4. Pleural effusion, bilateral s/p mulitiple thoracenthesis both right and left by IR and chest tube placement by CTS At present left pig tail in place with minimal input last 24 hours pulmonary and CTS on consult 5. Diastolic CHF, acute on chronic with pulmonary hypertension, now w/ aortic valve vegetation Empiric abx as above with Dr. Winslow on consultation Acute. slowly improving cardiology on board Diuretics on hold due to worsening renal function and hypernatremia low salt diet on Sildenafil for pulmonary hypertension Continue Lasix as per nephrology Continue spironolactone 6. A-fib Chronic , better controlled cardiology on consult Dr. Castro s/p STEVEN and elective cardioversion on cardizem and metoprolol IV On Eliquis for anticoagulation 7.CANDELARIA (acute kidney injury)- resolving stable improved Nephrology on consult 8. Hypernatremia resolved due to dehydration low salt diet 9. HTN (hypertension) Chronic , controlled on Metoprolol, cardizem and spironolactone 10. Hx of seizure disorder Chronic neurology consulted lamictal dose 50mg Q12 hours 11. Anemia of chronic disease- improving Hgb stable Monitor for now on ferrous sulfate 12.Coumadin toxicity INR was 5.6 on admission Coumadin on hold started Eliquis for anticoagulation 13. SUSAN (obstructive sleep apnea) Chronic BIPAP at night 14. C diff antigen positive Dr. Winslow on consultation Flagyl added 15. Failed swallow eval NGT in place with feeding Aspiration precautions refused peg 16. Frailty/ poor ,guarded prognosis patient is full code is surrogate decision maker 17. Vitamin D deficiency on ergocalciferol 18. DVT prophylaxis
[2017-11-10] MEDS ORDERED: Chlorhexidine Gluconate 1 APPL/PKT TP ONE (18:19)
--- NOTE | 2017-11-10 21:49 | CP.PCM.PN ---
Subjective - Date & Time of Evaluation Date of Evaluation: 11/10/17 Time of Evaluation: 21:15 - Subjective Subjective: Fully awake, alert Oriented X 3, less lethargic and more awake. Speech is more coherent not slurred not aphasic. Cranial nerve exam is showing no deficits. Power is generally weak 3 to 4/5 DTR are 0/4 Toes are down going on Plantar stimulation Cerebellar exam: unable to assess Sensory: intact pain and touch No seizures on Lamictal 50 mg Q 12 hrs. Objective - Vital Signs/Intake and Output Vital Signs (last 24 hours): Temp Pulse Resp BP Pulse Ox 98.2 F 91 H 26 H 110/45 L 100 11/10/17 16:00 11/10/17 21:13 11/10/17 20:11 11/10/17 21:13 11/10/17 17:59 Intake and Output: 11/10/17 11/11/17 18:59 06:59 Intake Total 2404 Output Total 2255 Balance 149 - Medications Medications: Current Medications Acetaminophen (Tylenol 650mg/20.3ml Solution Ud) 650 mg PO Q6 PRN PRN Reason: Temperature Last Admin: 11/01/17 09:32 Dose: 650 mg Acetazolamide (Diamox 250 Mg Tab) 250 mg PO BID [facility] Last Admin: 11/10/17 16:46 Dose: 250 mg Apixaban (Eliquis) 2.5 mg PO BID [facility] PRN Reason: Protocol Last Admin: 11/10/17 16:46 Dose: 2.5 mg Cholecalciferol (Vitamin D) 5,000 intlu PO DAILY [facility] Last Admin: 11/10/17 08:48 Dose: 5,000 intlu Collagenase (Santyl) 1 applic TOP DAILY [facility] Last Admin: 11/10/17 08:46 Dose: 1 appl Diltiazem HCl (Cardizem) 60 mg PO 0300,0900,1500,2100 [facility] Last Admin: 11/10/17 21:13 Dose: 60 mg Dimethicone (Proshield Plus Skin Protectant) 1 applic TOP Q8 [facility] Last Admin: 11/10/17 16:45 Dose: 1 applic Ferrous Gluconate (Fergon) 324 mg PO DAILY [facility] Last Admin: 11/10/17 08:47 Dose: 324 mg Furosemide (Lasix) 40 mg IVP DAILY [facility] Last Admin: 11/10/17 08:46 Dose: 40 mg Home Med (Patient's Own Medication) 1 unit PO Q12 [facility] Last Admin: 11/10/17 12:07 Dose: Not Given Meropenem 500 mg/ Sodium (Chloride) 100 mls @ 100 mls/hr IVPB Q8 [facility] PRN Reason: Protocol Last Admin: 11/10/17 16:50 Dose: 100 mls/hr Metronidazole (Flagyl 500mg/100ml Ns) 100 mls @ 100 mls/hr IVPB Q8 [facility] PRN Reason: Protocol Last Admin: 11/10/17 16:47 Dose: 100 mls/hr Vancomycin HCl 1 gm/ Sodium (Chloride) 250 mls @ 166.667 mls/hr IVPB Q48H [facility] PRN Reason: Protocol Last Admin: 11/10/17 09:40 Dose: 166.667 mls/hr Lactobacillus Acidophilus (Bacid Acidophilus) 1 cap PO BID [facility] Last Admin: 11/10/17 16:57 Dose: 1 cap Lamotrigine (Lamictal) 50 mg PO Q12@0930,2130 [facility] Last Admin: 11/10/17 21:12 Dose: 50 mg Metoprolol Tartrate (Lopressor) 5 mg IVP Q6 [facility] Last Admin: 11/10/17 16:48 Dose: 5 mg Sildenafil Citrate (Revatio) 20 mg PO BID [facility] Last Admin: 11/10/17 16:44 Dose: 20 mg Spironolactone (Aldactone) 25 mg PO BID [facility] Last Admin: 11/10/17 16:46 Dose: 25 mg - Labs Labs: 11/10/17 05:30 11/10/17 05:30 PT 14.9 Seconds (9.8-13.1) H 10/29/17 04:20 INR 1.3 (0.9-1.2) H 10/29/17 04:20 APTT 34.4 Seconds (25.6-37.1) 10/26/17 12:30 Assessment and Plan (1) CANDELARIA (acute kidney injury) Status: Resolved (2) Acute respiratory failure Status: Acute (3) Altered mental status Status: Deleted (4) Pleural effusion, bilateral Status: Acute (5) Pneumonia Status: Acute (6) Seizure disorder Status: Suspected (7) Encephalopathy Status: Acute
[2017-11-11] MEDS: Metoprolol 1 mg/ml Inj IVP SCH ×4 (00:37→18:22)
[2017-11-11] MEDS: metroNIDAZOLE 500mg/100ml NS 100 ML IVPB SCH ×3 (00:39→18:20)
[2017-11-11] MEDS: Proshield Plus GEL TOP SCH ×3 (01:37→16:26)
[2017-11-11] MEDS: Meropenem 500 MG in Sodium Chloride 0.9% 100 ML IVPB SCH ×3 (01:37→18:20)
[2017-11-11 05:44] LABS: BASO % 0.2 % (0.0-2.0); EOS % 0.1 % (0.0-4.0); HEMOGLOBIN 9.4 g/dL (12.0-18.0); LYMPH # 0.7 K/uL (1.0-4.3); LYMPH % 4.7 % (20.0-40.0); MEAN CELL VOLUME 93.8 fl (80.0-94.0); MEAN CORPUSCULAR HGB CONC 33.1 g/dL (33.0-37.0); MEAN PLATELET VOLUME 7.6 fl (7.2-11.7); MONO # 0.8 K/uL (0.0-0.8); MONO % 4.9 % (0.0-10.0); NEUT # 14.4 K/uL (1.8-7.0); NEUT % 90.1 % (50.0-75.0); PLATELET COUNT 543 K/uL (130-400); RBC 3.02 Mil/uL (4.40-5.90); RED CELL DISTRIBUTION WIDTH 21.1 % (11.5-14.5)
[2017-11-11 06:08] LABS: ALB/GLOB RATIO 0.7 (1.0-2.1); ALBUMIN 2.7 g/dL (3.5-5.0); ALT/SGPT 32 U/L (21-72); AST/SGOT 19 U/L (17-59); BLOOD UREA NITROGEN 33 mg/dl (9-20); CALCIUM 8.7 mg/dL (8.4-10.2); GFR AFRICAN-AMERICAN > 60; GFR NON-AFRICAN AMERICAN > 60
[2017-11-11] MEDS: Lactobacillus Acidophilus 500 MU Cap PO SCH ×2 (08:38→16:25)
[2017-11-11] MEDS: Sildenafil 20 MG TAB PO SCH ×2 (08:39→16:26)
[2017-11-11] MEDS: METOPROLOL SUCCINATE 50 MG PO SCH (08:39)
[2017-11-11] MEDS: Cholecalciferol 1,000 INTLU TAB PO SCH (08:40)
[2017-11-11] MEDS: Santyl Collagenase OINTMENT TOP SCH (08:40)
[2017-11-11 09:37] LABS: LYMPHOCYTE 7 % (20-50); MONOCYTE 4 % (0-10); NEUTROPHIL 89 % (42-75); PLATELET ESTIMATE INCREASED (NORMAL); TOTAL CELLS COUNTED 100
[2017-11-11 09:38] LABS: ANISOCYTOSIS MARKED; HYPOCHROMIC SLIGHT; TOXIC GRANULATION PRESENT
[2017-11-11 09:39] LABS: OVALOCYTES SLIGHT; SCHISTOCYTES SLIGHT; TEARDROP CELLS SLIGHT
--- NOTE | 2017-11-11 13:15 | CP.PCM.PN ---
Subjective - Date & Time of Evaluation Date of Evaluation: 11/11/17 Time of Evaluation: 12:00 - Subjective Subjective: Patient is fully awake and alert now and able to speak 2-3 words at a time. Speech is more coherent. He is for modified video barium swallow- hopefully will be able to resume oral diet. Stable for downgrade to telemetry floor. No acute events overnight. Objective - Vital Signs/Intake and Output Vital Signs (last 24 hours): Temp Pulse Resp BP Pulse Ox 98.4 F 90 24 117/53 L 100 11/11/17 12:00 11/11/17 12:08 11/11/17 12:00 11/11/17 12:00 11/11/17 12:00 Intake and Output: 11/11/17 11/11/17 06:59 18:59 Intake Total 1170 720 Output Total 455 1250 Balance 715 -530 - Medications Medications: Current Medications Acetaminophen (Tylenol 650mg/20.3ml Solution Ud) 650 mg PO Q6 PRN PRN Reason: Temperature Last Admin: 11/01/17 09:32 Dose: 650 mg Acetazolamide (Diamox 250 Mg Tab) 250 mg PO BID [facility] Last Admin: 11/11/17 08:36 Dose: 250 mg Apixaban (Eliquis) 2.5 mg PO BID [facility] PRN Reason: Protocol Last Admin: 11/11/17 08:36 Dose: 2.5 mg Cholecalciferol (Vitamin D) 5,000 intlu PO DAILY [facility] Last Admin: 11/11/17 08:40 Dose: 5,000 intlu Collagenase (Santyl) 1 applic TOP DAILY [facility] Last Admin: 11/11/17 08:40 Dose: 1 appl Diltiazem HCl (Cardizem) 60 mg PO 0300,0900,1500,2100 [facility] Last Admin: 11/11/17 08:35 Dose: 60 mg Dimethicone (Proshield Plus Skin Protectant) 1 applic TOP Q8 [facility] Last Admin: 11/11/17 08:32 Dose: 1 applic Ferrous Gluconate (Fergon) 324 mg PO DAILY [facility] Last Admin: 11/11/17 08:36 Dose: 324 mg Furosemide (Lasix) 40 mg IVP DAILY [facility] Last Admin: 11/11/17 08:37 Dose: 40 mg Meropenem 500 mg/ Sodium (Chloride) 100 mls @ 100 mls/hr IVPB Q8 [facility] PRN Reason: Protocol Last Admin: 11/11/17 08:38 Dose: 100 mls/hr Metronidazole (Flagyl 500mg/100ml Ns) 100 mls @ 100 mls/hr IVPB Q8 [facility] PRN Reason: Protocol Last Admin: 11/11/17 08:32 Dose: 100 mls/hr Vancomycin HCl 1 gm/ Sodium (Chloride) 250 mls @ 166.667 mls/hr IVPB Q48H [facility] PRN Reason: Protocol Last Admin: 11/10/17 09:40 Dose: 166.667 mls/hr Lactobacillus Acidophilus (Bacid Acidophilus) 1 cap PO BID [facility] Last Admin: 11/11/17 08:38 Dose: 1 cap Lamotrigine (Lamictal) 50 mg PO Q12@0930,2130 [facility] Last Admin: 11/11/17 08:36 Dose: 50 mg Metoprolol Tartrate (Lopressor) 5 mg IVP 0000,0600,1200,1800 [facility] Last Admin: 11/11/17 12:08 Dose: 5 mg Sildenafil Citrate (Revatio) 20 mg PO BID [facility] Last Admin: 11/11/17 08:39 Dose: 20 mg Spironolactone (Aldactone) 25 mg PO BID [facility] Last Admin: 11/11/17 08:35 Dose: 25 mg - Labs Labs: 11/11/17 05:00 11/11/17 05:00 PT 14.9 Seconds (9.8-13.1) H 10/29/17 04:20 INR 1.3 (0.9-1.2) H 10/29/17 04:20 APTT 34.4 Seconds (25.6-37.1) 10/26/17 12:30 - Additional Findings Additional findings: Constitutional- sleeping comfortably, easily arousable, responds appropriately Head- NCAT, PERRL Eye- PERRL, normal accommodation ENT- normal exam, MMM. 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 As per , she feels patient had clonic movements before admission. Patient was found to be Hypothermic with SOB associated with cough unable to bring out phlegms, also with CXr showing bilateral pleural effusions and Infiltrates . INR 5.6, PTT 68.0, PT 65.9 His hospital course has been complicated by hypoxia requiring intubation, right pig tail catheter placement and left thoracentesis for pleural effusions. He has been followed by neuro , pulmonary , ID, nephro and cardiology . He has been on broad spectrum antibiotics for Aspiration Pneumonia and has been diuresing well and developed CANDELARIA and hypernatremia. At present more awake and alert , following commands. Tolerating High flow during the day 40 LPM FIO2 50 % and Bipap at night.Sputum cultures positive for Pseudomonas aerugoinosa. 1. Acute respiratory failure with hypoxia and hypercapnia, improved etiology multi factorial -- pleural effusion , CHF, pneumonia was intubated and now extubated tolerating High Flow w Vapotherm 40 LPM on FIO2 50 % and BIPAP at night s/p multiple thoracentheis with pig tail placement . Left pigtail with minimal output last 24 hours Sputum cx positive for pseudomonas ID on consult. On meropenem and vanco IV as well as Flagyl. Continue duonebs CXR showed improvement of infiltrates and minimal pleural effusion Aspiration precautions since patient failed swallow eval NGT in place with feeding Vital 1.0 with no residuals. refused peg placement pulmonary on consult following 2. Aspiration pneumonia Acute ID and pulmonary on consult s/p BAL sputum cx positive for Pseudomonas On Vanco and meropenem 3.Altered mental status-- improving unclear etiology possibly Metabolic encephalopathy due to hypoxemia, pneumonia or related to uncontrolled seizures CT head showed no acute pathology Neurology consulted Lamictal 50 mg po Q12 hours seizure precautions Today more awake and alert , following commands Continue Bipap and High flow as ordered on IV antibiotics 4. Pleural effusion, bilateral s/p mulitiple thoracenthesis both right and left by IR and chest tube placement by CTS At present left pig tail in place with minimal input last 24 hours pulmonary and CTS on consult 5. Diastolic CHF, acute on chronic with pulmonary hypertension, now w/ aortic valve vegetation Empiric abx as above with Dr. Winslow on consultation Acute. slowly improving cardiology on board Diuretics on hold due to worsening renal function and hypernatremia low salt diet on Sildenafil for pulmonary hypertension Continue Lasix as per nephrology Continue spironolactone 6. A-fib Chronic , better controlled cardiology on consult Dr. Castro s/p STEVEN and elective cardioversion on cardizem and metoprolol IV On Eliquis for anticoagulation 7.CANDELARIA (acute kidney injury)- resolving stable improved Nephrology on consult 8. Hypernatremia resolved due to dehydration low salt diet 9. HTN (hypertension) Chronic , controlled on Metoprolol, cardizem and spironolactone 10. Hx of seizure disorder Chronic neurology consulted lamictal dose 50mg Q12 hours 11. Anemia of chronic disease- improving Hgb stable Monitor for now on ferrous sulfate 12.Coumadin toxicity INR was 5.6 on admission Coumadin on hold started Eliquis for anticoagulation 13. SUSAN (obstructive sleep apnea) Chronic BIPAP at night 14. C diff antigen positive Dr. Winslow on consultation Flagyl added 15. Failed swallow eval NGT in place with feeding Aspiration precautions refused peg For modified video barium swallow 16. Frailty/ poor ,guarded prognosis patient is full code is surrogate decision maker 17. Vitamin D deficiency on ergocalciferol 18. DVT prophylaxis - Eliquis
--- NOTE | 2017-11-11 15:37 | RAD ---
HISTORY: aspiration COMPARISON: Chest x-ray performed 11/09/17 TECHNIQUE: Chest, one view. FINDINGS: Examination limited by habitus. Nasogastric tube extends the expected location of the stomach. Right-sided PICC extends the cavoatrial junction. Left upper quadrant drainage catheter. Numerous external wires and leads obscure evaluation of the underlying parenchyma. LUNGS: Small bilateral pleural effusions. Bibasilar atelectasis or infiltrates. Mild pulmonary venous congestion. No definite pneumothorax. CARDIOVASCULAR: Single lead left-sided pacemaker. Cardiomegaly. Atherosclerotic calcifications of the aorta. OSSEOUS STRUCTURES: Degenerative changes. VISUALIZED UPPER ABDOMEN: Unremarkable. OTHER FINDINGS: None. IMPRESSION: Support lines and tubes as above. Small bilateral pleural effusions. Bibasilar atelectasis or infiltrates. Mild pulmonary venous congestion. Single lead left-sided pacemaker. Cardiomegaly. Atherosclerotic calcifications.
--- NOTE | 2017-11-11 21:09 | CP.PCM.PN ---
Subjective - Date & Time of Evaluation Date of Evaluation: 11/11/17 Time of Evaluation: 21:09 - Subjective Subjective: back to normal MS Objective - Vital Signs/Intake and Output Vital Signs (last 24 hours): Temp Pulse Resp BP Pulse Ox 97.6 F 71 21 129/66 100 11/11/17 20:00 11/11/17 20:31 11/11/17 20:39 11/11/17 20:31 11/11/17 20:00 Intake and Output: 11/11/17 11/12/17 18:59 06:59 Intake Total 1440 Output Total 1800 Balance -360 - Medications Medications: Current Medications Acetaminophen (Tylenol 650mg/20.3ml Solution Ud) 650 mg PO Q6 PRN PRN Reason: Temperature Last Admin: 11/01/17 09:32 Dose: 650 mg Acetazolamide (Diamox 250 Mg Tab) 250 mg PO BID [facility] Last Admin: 11/11/17 16:25 Dose: 250 mg Apixaban (Eliquis) 2.5 mg PO BID [facility] PRN Reason: Protocol Last Admin: 11/11/17 18:22 Dose: 2.5 mg Cholecalciferol (Vitamin D) 5,000 intlu PO DAILY [facility] Last Admin: 11/11/17 08:40 Dose: 5,000 intlu Collagenase (Santyl) 1 applic TOP DAILY [facility] Last Admin: 11/11/17 08:40 Dose: 1 appl Diltiazem HCl (Cardizem) 60 mg PO 0300,0900,1500,2100 [facility] Last Admin: 11/11/17 20:31 Dose: 60 mg Dimethicone (Proshield Plus Skin Protectant) 1 applic TOP Q8 [facility] Last Admin: 11/11/17 16:26 Dose: 1 applic Ferrous Gluconate (Fergon) 324 mg PO DAILY [facility] Last Admin: 11/11/17 08:36 Dose: 324 mg Furosemide (Lasix) 40 mg IVP DAILY [facility] Last Admin: 11/11/17 08:37 Dose: 40 mg Meropenem 500 mg/ Sodium (Chloride) 100 mls @ 100 mls/hr IVPB Q8 [facility] PRN Reason: Protocol Last Admin: 11/11/17 18:20 Dose: 100 mls/hr Metronidazole (Flagyl 500mg/100ml Ns) 100 mls @ 100 mls/hr IVPB Q8 [facility] PRN Reason: Protocol Last Admin: 11/11/17 18:20 Dose: 100 mls/hr Vancomycin HCl 1 gm/ Sodium (Chloride) 250 mls @ 166.667 mls/hr IVPB Q48H [facility] PRN Reason: Protocol Last Admin: 11/10/17 09:40 Dose: 166.667 mls/hr Lactobacillus Acidophilus (Bacid Acidophilus) 1 cap PO BID [facility] Last Admin: 11/11/17 16:25 Dose: 1 cap Lamotrigine (Lamictal) 50 mg PO Q12@0930,2130 [facility] Last Admin: 11/11/17 20:32 Dose: 50 mg Metoprolol Tartrate (Lopressor) 5 mg IVP 0000,0600,1200,1800 [facility] Last Admin: 11/11/17 18:22 Dose: 5 mg Sildenafil Citrate (Revatio) 20 mg PO BID [facility] Last Admin: 11/11/17 16:26 Dose: 20 mg Spironolactone (Aldactone) 25 mg PO BID [facility] Last Admin: 11/11/17 16:25 Dose: 25 mg - Labs Labs: 11/11/17 05:00 11/11/17 05:00 PT 14.9 Seconds (9.8-13.1) H 10/29/17 04:20 INR 1.3 (0.9-1.2) H 10/29/17 04:20 APTT 34.4 Seconds (25.6-37.1) 10/26/17 12:30 - Constitutional Appears: Well - Head Exam Head Exam: ATRAUMATIC, NORMAL INSPECTION, NORMOCEPHALIC - Eye Exam Eye Exam: EOMI, Normal appearance, PERRL Pupil Exam: NORMAL ACCOMODATION, PERRL - ENT Exam ENT Exam: Mucous Membranes Moist, Normal Exam - Neck Exam Neck Exam: Full ROM, Normal Inspection. absent: Lymphadenopathy - Respiratory Exam Respiratory Exam: Clear to Ausculation Bilateral, NORMAL BREATHING PATTERN - Cardiovascular Exam Cardiovascular Exam: REGULAR RHYTHM, +S1, +S2, Murmur - GI/Abdominal Exam GI & Abdominal Exam: Soft, Normal Bowel Sounds. absent: Tenderness - Extremities Exam Extremities Exam: Full ROM, Normal Capillary Refill, Normal Inspection. absent : Joint Swelling, Pedal Edema - Back Exam Back Exam: NORMAL INSPECTION - Neurological Exam Neurological Exam: Alert, Awake, CN II-XII Intact - Psychiatric Exam Psychiatric exam: Normal Affect, Normal Mood - Skin Skin Exam: Dry, Intact, Normal Color, Warm Assessment and Plan (1) A-fib Status: Chronic (2) Acute on chronic diastolic (congestive) heart failure Status: Chronic (3) Acute respiratory failure with hypoxia Status: Acute (4) Altered mental status Status: Deleted (5) HTN (hypertension) Status: Chronic (6) Seizure disorder Status: Chronic (7) CANDELARIA (acute kidney injury) Status: Resolved (8) Encephalopathy Status: Acute (9) Hypothermia Status: Deleted (10) Pleural effusion, bilateral Status: Acute (11) Supratherapeutic international normalized ratio (INR) Status: Acute (12) Acute decompensated heart failure Status: Acute (13) Atrial fibrillation with RVR Status: Acute
--- NOTE | 2017-11-11 23:55 | CP.PCM.PN ---
Subjective - Date & Time of Evaluation Date of Evaluation: 11/11/17 Time of Evaluation: 21:45 - Subjective Subjective: Patient was doing well and improved significantly. He was about to be transferred to the Telemetry unit when suddenly he became non responsive and lethargic. The declined to place the BIPAP to help his condition. Currently he is still lethargic, non responsive to verbal stimulation, grimacing to painful stimulation. R/O Seizures, R/O Respiratory Problems. The is opposing increasing the Lamictal as she thinks it might hurt him or may cause him lethargy. There is no way to convince her to increase Lamictal to a therapeutic dose. Get EEG and F/U Cardiology and Pulmonology recommendation. He was to be scheduled for a swallowing evaluation. Normal V.S. Objective - Vital Signs/Intake and Output Vital Signs (last 24 hours): Temp Pulse Resp BP Pulse Ox 97.6 F 71 21 129/66 100 11/11/17 20:00 11/11/17 20:31 11/11/17 20:39 11/11/17 20:31 11/11/17 20:00 Intake and Output: 11/11/17 11/12/17 18:59 06:59 Intake Total 1440 Output Total 1800 Balance -360 - Medications Medications: Current Medications Acetaminophen (Tylenol 650mg/20.3ml Solution Ud) 650 mg PO Q6 PRN PRN Reason: Temperature Last Admin: 11/01/17 09:32 Dose: 650 mg Acetazolamide (Diamox 250 Mg Tab) 250 mg PO BID [facility] Last Admin: 11/11/17 16:25 Dose: 250 mg Apixaban (Eliquis) 2.5 mg PO BID [facility] PRN Reason: Protocol Last Admin: 11/11/17 18:22 Dose: 2.5 mg Cholecalciferol (Vitamin D) 5,000 intlu PO DAILY [facility] Last Admin: 11/11/17 08:40 Dose: 5,000 intlu Collagenase (Santyl) 1 applic TOP DAILY [facility] Last Admin: 11/11/17 08:40 Dose: 1 appl Diltiazem HCl (Cardizem) 60 mg PO 0300,0900,1500,2100 [facility] Last Admin: 11/11/17 20:31 Dose: 60 mg Dimethicone (Proshield Plus Skin Protectant) 1 applic TOP Q8 [facility] Last Admin: 11/11/17 16:26 Dose: 1 applic Ferrous Gluconate (Fergon) 324 mg PO DAILY [facility] Last Admin: 11/11/17 08:36 Dose: 324 mg Furosemide (Lasix) 40 mg IVP DAILY [facility] Last Admin: 11/11/17 08:37 Dose: 40 mg Meropenem 500 mg/ Sodium (Chloride) 100 mls @ 100 mls/hr IVPB Q8 [facility] PRN Reason: Protocol Last Admin: 11/11/17 18:20 Dose: 100 mls/hr Metronidazole (Flagyl 500mg/100ml Ns) 100 mls @ 100 mls/hr IVPB Q8 [facility] PRN Reason: Protocol Last Admin: 11/11/17 18:20 Dose: 100 mls/hr Vancomycin HCl 1 gm/ Sodium (Chloride) 250 mls @ 166.667 mls/hr IVPB Q48H [facility] PRN Reason: Protocol Last Admin: 11/10/17 09:40 Dose: 166.667 mls/hr Lactobacillus Acidophilus (Bacid Acidophilus) 1 cap PO BID [facility] Last Admin: 11/11/17 16:25 Dose: 1 cap Lamotrigine (Lamictal) 50 mg PO Q12@0930,2130 [facility] Last Admin: 11/11/17 20:32 Dose: 50 mg Metoprolol Tartrate (Lopressor) 5 mg IVP 0000,0600,1200,1800 [facility] Last Admin: 11/11/17 18:22 Dose: 5 mg Sildenafil Citrate (Revatio) 20 mg PO BID [facility] Last Admin: 11/11/17 16:26 Dose: 20 mg Spironolactone (Aldactone) 25 mg PO BID [facility] Last Admin: 11/11/17 16:25 Dose: 25 mg - Labs Labs: 11/11/17 05:00 11/11/17 05:00 PT 14.9 Seconds (9.8-13.1) H 10/29/17 04:20 INR 1.3 (0.9-1.2) H 10/29/17 04:20 APTT 34.4 Seconds (25.6-37.1) 10/26/17 12:30 Assessment and Plan (1) CANDELARIA (acute kidney injury) Status: Resolved (2) Acute respiratory failure Status: Acute (3) Altered mental status Status: Deleted (4) Pleural effusion, bilateral Status: Acute (5) Pneumonia Status: Acute (6) Seizure disorder Status: Suspected (7) Encephalopathy Status: Acute
[2017-11-12] MEDS: Metoprolol 1 mg/ml Inj IVP SCH ×4 (00:07→17:53)
[2017-11-12] MEDS: Proshield Plus GEL TOP SCH ×3 (00:09→16:27)
[2017-11-12] MEDS: metroNIDAZOLE 500mg/100ml NS 100 ML IVPB SCH ×3 (00:10→16:25)
[2017-11-12] MEDS: Meropenem 500 MG in Sodium Chloride 0.9% 100 ML IVPB SCH ×3 (00:10→16:27)
[2017-11-12 05:10] LABS: ABG ALLEN TEST YES; ARTERIAL BLOOD GAS HCO3 27.5 mmol/L (21-28); ARTERIAL BLOOD GAS HEMOGLOBIN 9.5 g/dL (11.7-17.4); ARTERIAL BLOOD GAS O2 CAPACITY 13.4 mL/dL (16-24); ARTERIAL BLOOD GAS O2 CONTENT 13.4 ML/dL (15-23); ARTERIAL BLOOD GAS O2 SAT 100.3 % (95-98); ARTERIAL BLOOD GAS PCO2 46 mm/Hg (35-45); ARTERIAL BLOOD GAS PO2 175 mm/Hg (80-100); ARTERIAL BLOOD GAS TCO2 29.9 mmol/L (22-28)
[2017-11-12 05:54] LABS: BASO % 0.5 % (0.0-2.0); EOS # 0.2 K/uL (0.0-0.7); EOS % 2.4 % (0.0-4.0); HEMOGLOBIN 9.1 g/dL (12.0-18.0); LYMPH # 0.9 K/uL (1.0-4.3); LYMPH % 13.8 % (20.0-40.0); MEAN CORPUSCULAR HEMOGLOBIN 31.5 pg (27.0-31.0); MEAN CORPUSCULAR HGB CONC 33.5 g/dL (33.0-37.0); MEAN PLATELET VOLUME 7.7 fl (7.2-11.7); MONO # 0.8 K/uL (0.0-0.8); MONO % 11.3 % (0.0-10.0); NEUT # 4.8 K/uL (1.8-7.0); NRBC % 0.1 % (0.0-0.0); RBC 2.89 Mil/uL (4.40-5.90)
[2017-11-12 06:09] LABS: WHITE BLOOD COUNT 6.7 K/uL (4.8-10.8)
[2017-11-12 06:27] LABS: ALB/GLOB RATIO 0.7 (1.0-2.1); ALBUMIN 2.7 g/dL (3.5-5.0); ALT/SGPT 29 U/L (21-72); AST/SGOT 30 U/L (17-59); BLOOD UREA NITROGEN 34 mg/dl (9-20); CALCIUM 8.7 mg/dL (8.4-10.2); GFR AFRICAN-AMERICAN > 60; GFR NON-AFRICAN AMERICAN > 60
[2017-11-12] MEDS: Cholecalciferol 1,000 INTLU TAB PO SCH (08:37)
[2017-11-12] MEDS: Lactobacillus Acidophilus 500 MU Cap PO SCH ×2 (08:39→16:38)
[2017-11-12] MEDS: Santyl Collagenase OINTMENT TOP SCH (08:45)
[2017-11-12] MEDS: Sildenafil 20 MG TAB PO SCH ×2 (08:47→16:29)
--- NOTE | 2017-11-12 10:23 | CP.PCM.PN ---
Subjective - Date & Time of Evaluation Date of Evaluation: 11/12/17 Time of Evaluation: 10:20 - Subjective Subjective: No significant changes clinically Vital signs noted to be stable Lab tests showed correction of metabolic alkalosis CO2 came down to somewhere between 29-30 Therefore DC Diamox Continue monitor electrolyte. The impression Metabolic alkalosis corrected DC Diamox continue monitoring The rest of the entire medical problem as noted on previous note. Objective - Vital Signs/Intake and Output Vital Signs (last 24 hours): Temp Pulse Resp BP Pulse Ox 97.5 F L 65 14 135/55 L 100 11/12/17 08:00 11/12/17 08:40 11/12/17 08:05 11/12/17 08:40 11/12/17 08:00 Intake and Output: 11/12/17 11/12/17 06:59 18:59 Intake Total 1240 Output Total 1330 Balance -90 - Medications Medications: Current Medications Acetaminophen (Tylenol 650mg/20.3ml Solution Ud) 650 mg PO Q6 PRN PRN Reason: Temperature Last Admin: 11/01/17 09:32 Dose: 650 mg Apixaban (Eliquis) 2.5 mg PO BID [facility] PRN Reason: Protocol Last Admin: 11/12/17 08:36 Dose: 2.5 mg Cholecalciferol (Vitamin D) 5,000 intlu PO DAILY [facility] Last Admin: 11/12/17 08:37 Dose: 5,000 intlu Collagenase (Santyl) 1 applic TOP DAILY [facility] Last Admin: 11/12/17 08:45 Dose: 1 appl Diltiazem HCl (Cardizem) 60 mg PO 0300,0900,1500,2100 [facility] Last Admin: 11/12/17 08:40 Dose: 60 mg Dimethicone (Proshield Plus Skin Protectant) 1 applic TOP Q8 [facility] Last Admin: 11/12/17 08:44 Dose: 1 applic Ferrous Gluconate (Fergon) 324 mg PO DAILY [facility] Last Admin: 11/12/17 08:37 Dose: 324 mg Furosemide (Lasix) 40 mg IVP DAILY [facility] Last Admin: 11/12/17 08:40 Dose: 40 mg Meropenem 500 mg/ Sodium (Chloride) 100 mls @ 100 mls/hr IVPB Q8 [facility] PRN Reason: Protocol Last Admin: 11/12/17 08:41 Dose: 100 mls/hr Metronidazole (Flagyl 500mg/100ml Ns) 100 mls @ 100 mls/hr IVPB Q8 [facility] PRN Reason: Protocol Last Admin: 11/12/17 08:47 Dose: 100 mls/hr Vancomycin HCl 1 gm/ Sodium (Chloride) 250 mls @ 166.667 mls/hr IVPB Q48H [facility] PRN Reason: Protocol Last Admin: 11/12/17 08:48 Dose: 166.667 mls/hr Lactobacillus Acidophilus (Bacid Acidophilus) 1 cap PO BID [facility] Last Admin: 11/12/17 08:39 Dose: 1 cap Lamotrigine (Lamictal) 50 mg PO Q12@0930,2130 [facility] Last Admin: 11/12/17 08:37 Dose: 50 mg Metoprolol Tartrate (Lopressor) 5 mg IVP 0000,0600,1200,1800 [facility] Last Admin: 11/12/17 06:15 Dose: 5 mg Sildenafil Citrate (Revatio) 20 mg PO BID [facility] Last Admin: 11/12/17 08:47 Dose: 20 mg Spironolactone (Aldactone) 25 mg PO BID [facility] Last Admin: 11/12/17 08:36 Dose: 25 mg - Labs Labs: 11/12/17 05:00 11/12/17 05:00 PT 14.9 Seconds (9.8-13.1) H 10/29/17 04:20 INR 1.3 (0.9-1.2) H 10/29/17 04:20 APTT 34.4 Seconds (25.6-37.1) 10/26/17 12:30 Assessment and Plan (1) CANDELARIA (acute kidney injury) Status: Resolved (2) Diastolic CHF, acute on chronic Status: Acute (3) Hypernatremia Status: Acute
--- NOTE | 2017-11-12 10:38 | CP.PCM.PN ---
Subjective - Date & Time of Evaluation Date of Evaluation: 11/12/17 Time of Evaluation: 10:36 - Subjective Subjective: drowsy and lethargic today Objective - Vital Signs/Intake and Output Vital Signs (last 24 hours): Temp Pulse Resp BP Pulse Ox 97.5 F L 65 14 135/55 L 100 11/12/17 08:00 11/12/17 08:40 11/12/17 08:05 11/12/17 08:40 11/12/17 08:00 Intake and Output: 11/12/17 11/12/17 06:59 18:59 Intake Total 1240 Output Total 1330 Balance -90 - Medications Medications: Current Medications Acetaminophen (Tylenol 650mg/20.3ml Solution Ud) 650 mg PO Q6 PRN PRN Reason: Temperature Last Admin: 11/01/17 09:32 Dose: 650 mg Apixaban (Eliquis) 2.5 mg PO BID [facility] PRN Reason: Protocol Last Admin: 11/12/17 08:36 Dose: 2.5 mg Cholecalciferol (Vitamin D) 5,000 intlu PO DAILY [facility] Last Admin: 11/12/17 08:37 Dose: 5,000 intlu Collagenase (Santyl) 1 applic TOP DAILY [facility] Last Admin: 11/12/17 08:45 Dose: 1 appl Diltiazem HCl (Cardizem) 60 mg PO 0300,0900,1500,2100 [facility] Last Admin: 11/12/17 08:40 Dose: 60 mg Dimethicone (Proshield Plus Skin Protectant) 1 applic TOP Q8 [facility] Last Admin: 11/12/17 08:44 Dose: 1 applic Ferrous Gluconate (Fergon) 324 mg PO DAILY [facility] Last Admin: 11/12/17 08:37 Dose: 324 mg Furosemide (Lasix) 40 mg IVP DAILY [facility] Last Admin: 11/12/17 08:40 Dose: 40 mg Meropenem 500 mg/ Sodium (Chloride) 100 mls @ 100 mls/hr IVPB Q8 [facility] PRN Reason: Protocol Last Admin: 11/12/17 08:41 Dose: 100 mls/hr Metronidazole (Flagyl 500mg/100ml Ns) 100 mls @ 100 mls/hr IVPB Q8 [facility] PRN Reason: Protocol Last Admin: 11/12/17 08:47 Dose: 100 mls/hr Vancomycin HCl 1 gm/ Sodium (Chloride) 250 mls @ 166.667 mls/hr IVPB Q48H [facility] PRN Reason: Protocol Last Admin: 11/12/17 08:48 Dose: 166.667 mls/hr Lactobacillus Acidophilus (Bacid Acidophilus) 1 cap PO BID [facility] Last Admin: 11/12/17 08:39 Dose: 1 cap Lamotrigine (Lamictal) 50 mg PO Q12@0930,2130 [facility] Last Admin: 11/12/17 08:37 Dose: 50 mg Metoprolol Tartrate (Lopressor) 5 mg IVP 0000,0600,1200,1800 [facility] Last Admin: 11/12/17 06:15 Dose: 5 mg Sildenafil Citrate (Revatio) 20 mg PO BID [facility] Last Admin: 11/12/17 08:47 Dose: 20 mg Spironolactone (Aldactone) 25 mg PO BID [facility] Last Admin: 11/12/17 08:36 Dose: 25 mg - Labs Labs: 11/12/17 05:00 11/12/17 05:00 PT 14.9 Seconds (9.8-13.1) H 10/29/17 04:20 INR 1.3 (0.9-1.2) H 10/29/17 04:20 APTT 34.4 Seconds (25.6-37.1) 10/26/17 12:30 - Constitutional Appears: Confused - Head Exam Head Exam: NORMAL INSPECTION, NORMOCEPHALIC - Eye Exam Eye Exam: EOMI, Normal appearance, PERRL Pupil Exam: NORMAL ACCOMODATION, PERRL - ENT Exam ENT Exam: Mucous Membranes Moist, Normal Exam - Neck Exam Neck Exam: Full ROM, Normal Inspection. absent: Lymphadenopathy - Respiratory Exam Respiratory Exam: Clear to Ausculation Bilateral, NORMAL BREATHING PATTERN - Cardiovascular Exam Cardiovascular Exam: Irregular Rhythm, +S1, +S2, Murmur - GI/Abdominal Exam GI & Abdominal Exam: Soft, Normal Bowel Sounds. absent: Tenderness - Extremities Exam Extremities Exam: Full ROM, Normal Capillary Refill, Normal Inspection. absent : Joint Swelling, Pedal Edema - Back Exam Back Exam: NORMAL INSPECTION - Neurological Exam Neurological Exam: Altered, CN II-XII Intact - Psychiatric Exam Psychiatric exam: Depressed, Normal Mood - Skin Skin Exam: Dry, Intact, Normal Color, Warm Assessment and Plan (1) A-fib Assessment & Plan: rate controlled on cardizem and bb on eliquis Status: Chronic (2) Acute on chronic diastolic (congestive) heart failure Assessment & Plan: on lasix and sildenafil Status: Chronic (3) Acute respiratory failure with hypoxia Status: Acute (4) Altered mental status Status: Deleted (5) HTN (hypertension) Status: Chronic (6) Seizure disorder Status: Chronic (7) CANDELARIA (acute kidney injury) Status: Resolved (8) Encephalopathy Status: Acute (9) Hypothermia Status: Deleted (10) Pleural effusion, bilateral Status: Acute (11) Supratherapeutic international normalized ratio (INR) Status: Acute (12) Acute decompensated heart failure Status: Acute (13) Atrial fibrillation with RVR Status: Acute
--- NOTE | 2017-11-12 12:42 | CP.CCUPN ---
CCU Subjective - Physician Review Subjective (Free Text): 11/12/17 The patient was Seen and examined by me at the bedside in the ICU, Medical records reviewed and Management issues were discussed and formulated with the house staff. 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 Escamilla to come to ED for "observation" She states that he has been on antibiotics for cough for 2 days and now develop hallucination secondary to antibiotics. In the ER he was very hypothermic, lethargic but respond to basic commands CXR showing bilateral pleural effusion and bibasilar opacity Tachypnea, placed on 50% VM Blood culture drawn and Received one dose of IV Rocephin and Zithromax Admitted to the ICU for Acute hypercarbic and Hypoxemic respiratory failure and severe sepsis Chest CT scan revealed moderate bilateral pleural effusion with atelectasis PT also had Elevated INR, received TOTAL 4U FFP 09/24, Underwent Left (8 fr) pig tail placement with about 500 serious fluid drained 09/25, Underwent Right (8 fr) pig tail placement and Left CT removed Right pig tail not functioning and Patient Underwent US guided placement of a right chest tube, 8 fr today Also Underwent US guided dual lumen picc placement via the right basilic vein 10/16, Underwent STEVEN with elective cardioversion (negative for clot) 10/14, US guided left thoracentesis 10/30, Underwent 8 fr pigtail drainage catheter placement left chest. Evaluated by Speach therapy, deemed high risk for aspiration and will be re- evaluated Evaluated by PT/OT Interval Events Today early in the morning, he was Lethargic, mildly elevated CO2 on the ABG, placed on BIPAP and now he is more awake, and interactive Followed up by wound care Comfortable, NAD Clinically improving and hemodynamically stable No Vasopressors Patient stable on high flow O2 supplement alternating with nocturnal BIPAP Last 24H I&O 2680/3130 Afebrile A-Fib on monitor, HR controlled, Resumed AC with Eliquis, tolerating Tolerating tube feeding Had small BM, not loose, no blood in it AM Labs, showing stable renal function (BUN/Cr 34/0.8) and no leucocytosis (WBC 6.7 down from 16) ABG 74./46/175/29.9/100% CCU Objective - Vital Signs / Intake & Output Vital Signs (Last 4 hours): Vital Signs Temp Pulse Resp BP Pulse Ox 11/12/17 12:00 96.4 F L 64 18 101/47 L 100 11/12/17 11:46 16 11/12/17 10:00 60 20 111/59 L 100 Intake and Output (Last 8hrs): Intake & Output 11/11/17 11/12/17 11/12/17 22:59 06:59 14:59 Intake Total 860 960 590 Output Total 550 1330 400 Balance 310 -370 190 Intake: IV 450 Intake, Piggyback 200 200 Tube Feeding 560 560 140 Free Water Flush 100 200 Output: Drainage 0 Left Chest 0 Urine 550 1330 400 Urethral (Wang) 550 1330 400 Other: # Bowel Movements 1 1 - Physical Exam Head: Positive for: Atraumatic, Normocephalic, Other (NG tube) Pupils: Positive for: PERRL, Sluggish Extroacular Muscles: Positive for: EOMI Conjunctiva: Positive for: Normal. Negative for: Icteric Ears: Positive for: Normal Mouth: Positive for: Moist Mucous Membranes Pharnyx: Negative for: ERYTHEMA Neck: Positive for: Normal Range of Motion. Negative for: JVD Respiratory/Chest: Positive for: Good Air Exchange, Respiratory Distress, Decreased Breath Sounds, Rhonchi (upper airway rhonchi), Tachypneic. Negative for: Accessory Muscle Use, Wheezes Cardiovascular: Positive for: Murmurs, Irregular Rhythm, Peripheal Pulses Present, Tachycardic. Negative for: Normal S1, S2, Rub Abdomen: Positive for: Normal Bowel Sounds. Negative for: Tenderness, Distention, Peritoneal Signs Upper Extremity: Positive for: Edema Lower Extremity: Positive for: Edema, NORMAL PULSES. Negative for: CALF TENDERNESS, Cyanosis Neurological: Positive for: Other (withdraws to deep pain) Skin: Positive for: Warm, Dry. Negative for: Rashes Psychiatric: Positive for: Alert, Lethargic (mental status waxwes and wanes). Negative for: Oriented x 3, Anxious, Agitated - Medications Active Medications: Active Medications Generic Name Dose Route Start Last Admin Trade Name Freq PRN Reason Stop Dose Admin Acetaminophen 650 mg 10/25/17 16:16 11/01/17 09:32 Tylenol 650mg/20.3ml Solution Ud PO 650 mg Q6 PRN Administration Temperature Apixaban 2.5 mg 11/08/17 17:00 11/12/17 08:36 Eliquis PO 2.5 mg BID YUKI Administration Protocol Cholecalciferol 5,000 intlu 10/18/17 09:00 11/12/17 08:37 Vitamin D PO 5,000 intlu DAILY YUKI Administration Collagenase 1 applic 11/01/17 09:00 11/12/17 08:45 Santyl TOP 1 appl DAILY YUKI Administration Diltiazem HCl 60 mg 11/08/17 08:00 11/12/17 08:40 Cardizem PO 60 mg 0300,0900,1500,2100 YUKI Administration Dimethicone 1 applic 10/23/17 09:00 11/12/17 08:44 Proshield Plus Skin Protectant TOP 1 applic Q8 YUKI Administration Ferrous Gluconate 324 mg 10/24/17 09:00 11/12/17 08:37 Fergon PO 324 mg DAILY YUKI Administration Furosemide 40 mg 11/04/17 09:00 11/12/17 08:40 Lasix IVP 40 mg DAILY YUKI Administration Meropenem 500 mg/ Sodium 100 mls @ 100 mls/hr 10/31/17 12:30 11/12/17 08:41 Chloride IVPB 100 mls/hr Q8 YUKI Administration Protocol Metronidazole 100 mls @ 100 mls/hr 11/01/17 17:00 11/12/17 08:47 Flagyl 500mg/100ml Ns IVPB 100 mls/hr Q8 YUKI Administration Protocol Vancomycin HCl 1 gm/ Sodium 250 mls @ 166.667 mls/hr 11/02/17 09:00 11/12/17 08:48 Chloride IVPB 166.667 mls/hr Q48H YUKI Administration Protocol Lactobacillus Acidophilus 1 cap 10/08/17 09:00 11/12/17 08:39 Bacid Acidophilus PO 1 cap BID YUKI Administration Lamotrigine 50 mg 10/31/17 21:30 11/12/17 08:37 Lamictal PO 50 mg Q12@0930,2130 YUKI Administration Metoprolol Tartrate 5 mg 11/11/17 12:00 11/12/17 06:15 Lopressor IVP 5 mg 0000,0600,1200,1800 YUKI Administration Sildenafil Citrate 20 mg 11/01/17 09:00 11/12/17 08:47 Revatio PO 20 mg BID YUKI Administration Spironolactone 25 mg 11/07/17 17:00 11/12/17 08:36 Aldactone PO 25 mg BID YUKI Administration - Patient Studies Lab Studies: Lab Studies 11/12/17 11/12/17 11/12/17 Range/Units 05:00 05:00 04:56 WBC 6.7 D (4.8-10.8) K/uL RBC 2.89 L (4.40-5.90) Mil/uL Hgb 9.1 L (12.0-18.0) g/dL Hct 27.2 L (35.0-51.0) % MCV 94.0 (80.0-94.0) fl MCH 31.5 H (27.0-31.0) pg MCHC 33.5 (33.0-37.0) g/dL RDW 21.0 H (11.5-14.5) % Plt Count 527 H (130-400) K/uL MPV 7.7 (7.2-11.7) fl Neut % (Auto) 72.0 (50.0-75.0) % Lymph % (Auto) 13.8 L (20.0-40.0) % Upton % (Auto) 11.3 H (0.0-10.0) % Eos % (Auto) 2.4 (0.0-4.0) % Baso % (Auto) 0.5 (0.0-2.0) % Neut # 4.8 (1.8-7.0) K/uL Lymph # 0.9 L (1.0-4.3) K/uL Upton # 0.8 (0.0-0.8) K/uL Eos # 0.2 (0.0-0.7) K/uL Baso # 0.0 (0.0-0.2) K/uL pCO2 46 H (35-45) mm/Hg pO2 175 H (80-100) mm/Hg HCO3 27.5 (21-28) mmol/L ABG pH 7.40 (7.35-7.45) ABG Total CO2 29.9 H (22-28) mmol/L ABG O2 Saturation 100.3 H (95-98) % ABG O2 Content 13.4 L (15-23) ML/dL ABG Base Excess 3.2 H (-2.0-3.0) mmol/L ABG Hemoglobin 9.5 L (11.7-17.4) g/dL ABG Carboxyhemoglobin 1.5 (0.5-1.5) % POC ABG HHb (Measured) -0.3 L (0.0-5.0) % ABG Methemoglobin 1.1 (0.0-3.0) % ABG O2 Capacity 13.4 L (16-24) mL/dL Broderick Test Yes A-a O2 Difference 124.0 mm/Hg Hgb O2 Saturation 97.6 (95.0-98.0) % Vent Mode Bipap Mechanical Rate 12 FiO2 50.0 % Inspiratory BiPAP 12 Expiratory BiPAP 5 Sodium 136 (132-148) mmol/l Potassium 4.2 (3.6-5.0) MMOL/L Chloride 100 (98-107) mmol/L Carbon Dioxide 30 (22-30) mmol/L Anion Gap 10 (10-20) BUN 34 H (9-20) mg/dl Creatinine 0.9 (0.8-1.5) mg/dl Est GFR ( Amer) > 60 Est GFR (Non-Af Amer) > 60 Random Glucose 117 H (75-110) mg/dL Calcium 8.7 (8.4-10.2) mg/dL Total Bilirubin 0.1 L (0.2-1.3) mg/dl AST 30 (17-59) U/L ALT 29 (21-72) U/L Alkaline Phosphatase 101 (38-126) U/L Total Protein 6.6 (6.3-8.2) G/DL Albumin 2.7 L (3.5-5.0) g/dL Globulin 3.9 (2.2-3.9) gm/dL Albumin/Globulin Ratio 0.7 L (1.0-2.1) Laboratory Results - last 24 hr 11/12/17 11/12/17 11/12/17 04:56 05:00 05:00 WBC 6.7 D RBC 2.89 L Hgb 9.1 L Hct 27.2 L MCV 94.0 MCH 31.5 H MCHC 33.5 RDW 21.0 H Plt Count 527 H MPV 7.7 Neut % (Auto) 72.0 Lymph % (Auto) 13.8 L Upton % (Auto) 11.3 H Eos % (Auto) 2.4 Baso % (Auto) 0.5 Neut # 4.8 Lymph # 0.9 L Upton # 0.8 Eos # 0.2 Baso # 0.0 pCO2 46 H pO2 175 H HCO3 27.5 ABG pH 7.40 ABG Total CO2 29.9 H ABG O2 Saturation 100.3 H ABG O2 Content 13.4 L ABG Base Excess 3.2 H ABG Hemoglobin 9.5 L ABG Carboxyhemoglobin 1.5 POC ABG HHb (Measured) -0.3 L ABG Methemoglobin 1.1 ABG O2 Capacity 13.4 L Broderick Test Yes A-a O2 Difference 124.0 Hgb O2 Saturation 97.6 Vent Mode Bipap Mechanical Rate 12 FiO2 50.0 Inspiratory BiPAP 12 Expiratory BiPAP 5 Sodium 136 Potassium 4.2 Chloride 100 Carbon Dioxide 30 Anion Gap 10 BUN 34 H Creatinine 0.9 Est GFR ( Amer) > 60 Est GFR (Non-Af Amer) > 60 Random Glucose 117 H Calcium 8.7 Total Bilirubin 0.1 L AST 30 ALT 29 Alkaline Phosphatase 101 Total Protein 6.6 Albumin 2.7 L Globulin 3.9 Albumin/Globulin Ratio 0.7 L Fingerstick Blood Sugar Results: 83 Review of Systems - Review of Systems Systems not reviewed;Unavailable: Altered Mental Status (mental status waxwes and wanes) Assessment/Plan (1) Acute respiratory failure with hypoxia Current Visit: Yes Status: Acute Priority: High Comment: Acute hypercarbic and Hypoxemic respiratory failure secondary to likely aspiration pneumonia with pleural effusion in the setting of severe Respiratory muscle weakness Continue with ICU care for hemodynamic and Respiratory monitoring Successfully extubated IV Vancomycin, Meropenem and Metronidazole Gentle Diuresis with Aldactone 25 mg PO BID and IV lasix 40 mg daily Strict I&O, negative fluid balance Aggressive pulmonary toilet, chest PT, suctioning nebulizer treatment Maintain aspiration precautions GI/DVT PPX (2) CANDELARIA (acute kidney injury) Current Visit: Yes Status: Deleted Priority: High Comment: Improved renal function. Off all nephrotoxic medications Renally adjust medication dose (3) Altered mental status Current Visit: Yes Status: Deleted Priority: High Comment: More awake, interactive Toxic/metabolic encephalopathy, multifactorial in the sitting of Acute hypercarbic and Hypoxemic respiratory failure, pneumonia, uremia , sepsis (4) Pleural effusion, bilateral Current Visit: Yes Status: Acute Priority: High Comment: corrected coagulopathy 09/24, Underwent Left pig tail placement today with about 500 serious fluid drained 09/25, Underwent Right (8 fr) pig tail placement and Left CT removed 10/01, US guided placement of a right chest tube, 8 fr 10/14, US guided left thoracentesis. 10/30, Underwent 8 fr pigtail drainage catheter placement left chest. (5) A-fib Current Visit: No Status: Chronic Priority: High Comment: Continue Diltiazem HCl (Cardizem) 60 mg PO 0300,0900,1500,2100 Continue IV Metoprolol Tartrate (Lopressor) 5 mg IVP 0000,0600,1200,1800 YUKI HR better Resumed AC with Eliquis (6) Pulmonary hypertension Current Visit: Yes Status: Acute Comment: Continue Revatio 20 mg PO BID (7) Seizure disorder Current Visit: No Status: Chronic Priority: Medium Comment: Continue LamoTRIgine [Lamictal] 25 mg BID
--- NOTE | 2017-11-12 13:48 | CP.PCM.PN ---
Subjective - Date & Time of Evaluation Date of Evaluation: 11/12/17 Time of Evaluation: 07:00 - Subjective Subjective: mental status waxwes and wanes dr barr to re-eval Objective - Vital Signs/Intake and Output Vital Signs (last 24 hours): Temp Pulse Resp BP Pulse Ox 96.4 F L 64 18 101/47 L 100 11/12/17 12:00 11/12/17 12:00 11/12/17 12:00 11/12/17 12:00 11/12/17 12:00 Intake and Output: 11/12/17 11/12/17 06:59 18:59 Intake Total 1240 830 Output Total 1330 1100 Balance -90 -270 - Medications Medications: Current Medications Acetaminophen (Tylenol 650mg/20.3ml Solution Ud) 650 mg PO Q6 PRN PRN Reason: Temperature Last Admin: 11/01/17 09:32 Dose: 650 mg Apixaban (Eliquis) 2.5 mg PO BID YUKI PRN Reason: Protocol Last Admin: 11/12/17 08:36 Dose: 2.5 mg Cholecalciferol (Vitamin D) 5,000 intlu PO DAILY YUKI Last Admin: 11/12/17 08:37 Dose: 5,000 intlu Collagenase (Santyl) 1 applic TOP DAILY [facility] Last Admin: 11/12/17 08:45 Dose: 1 appl Diltiazem HCl (Cardizem) 60 mg PO 0300,0900,1500,2100 YUKI Last Admin: 11/12/17 08:40 Dose: 60 mg Dimethicone (Proshield Plus Skin Protectant) 1 applic TOP Q8 YUKI Last Admin: 11/12/17 08:44 Dose: 1 applic Ferrous Gluconate (Fergon) 324 mg PO DAILY [facility] Last Admin: 11/12/17 08:37 Dose: 324 mg Furosemide (Lasix) 40 mg IVP DAILY YUKI Last Admin: 11/12/17 08:40 Dose: 40 mg Meropenem 500 mg/ Sodium (Chloride) 100 mls @ 100 mls/hr IVPB Q8 YUKI PRN Reason: Protocol Last Admin: 11/12/17 08:41 Dose: 100 mls/hr Metronidazole (Flagyl 500mg/100ml Ns) 100 mls @ 100 mls/hr IVPB Q8 YUKI PRN Reason: Protocol Last Admin: 11/12/17 08:47 Dose: 100 mls/hr Vancomycin HCl 1 gm/ Sodium (Chloride) 250 mls @ 166.667 mls/hr IVPB Q48H [facility] PRN Reason: Protocol Last Admin: 11/12/17 08:48 Dose: 166.667 mls/hr Lactobacillus Acidophilus (Bacid Acidophilus) 1 cap PO BID [facility] Last Admin: 11/12/17 08:39 Dose: 1 cap Lamotrigine (Lamictal) 50 mg PO Q12@0930,2130 [facility] Last Admin: 11/12/17 08:37 Dose: 50 mg Metoprolol Tartrate (Lopressor) 5 mg IVP 0000,0600,1200,1800 [facility] Last Admin: 11/12/17 06:15 Dose: 5 mg Sildenafil Citrate (Revatio) 20 mg PO BID [facility] Last Admin: 11/12/17 08:47 Dose: 20 mg Spironolactone (Aldactone) 25 mg PO BID [facility] Last Admin: 11/12/17 08:36 Dose: 25 mg - Labs Labs: 11/12/17 05:00 11/12/17 05:00 PT 14.9 Seconds (9.8-13.1) H 10/29/17 04:20 INR 1.3 (0.9-1.2) H 10/29/17 04:20 APTT 34.4 Seconds (25.6-37.1) 10/26/17 12:30 - Constitutional Appears: Non-toxic, Cachectic, Chronically Ill - Head Exam Head Exam: NORMOCEPHALIC - Eye Exam Eye Exam: PERRL - ENT Exam ENT Exam: Mucous Membranes Dry - Neck Exam Neck Exam: absent: Lymphadenopathy - Respiratory Exam Respiratory Exam: Decreased Breath Sounds, Rhonchi - Cardiovascular Exam Cardiovascular Exam: REGULAR RHYTHM - GI/Abdominal Exam GI & Abdominal Exam: Distended, Soft - Rectal Exam Rectal Exam: Deferred - Exam Exam: NORMAL INSPECTION - Extremities Exam Extremities Exam: absent: Pedal Edema - Back Exam Back Exam: absent: CVA tenderness (L), CVA tenderness (R) - Neurological Exam Neurological Exam: Altered - Psychiatric Exam Psychiatric exam: Depressed - Skin Skin Exam: Dry Assessment and Plan (1) CANDELARIA (acute kidney injury) Status: Resolved (2) Acute respiratory failure Status: Acute (3) Altered mental status Status: Deleted (4) Diastolic CHF, acute on chronic Status: Acute (5) Pleural effusion, bilateral Status: Acute (6) Pneumonia Status: Acute (7) Aortic valve vegetation Status: Acute - Assessment and Plan (Free Text) Assessment: poor prognosis cont iv rx
[2017-11-12] MEDS: Pantoprazole 40 mg EC Tab PO SCH (17:55)
--- NOTE | 2017-11-13 00:05 | CP.PCM.PN ---
Subjective - Date & Time of Evaluation Date of Evaluation: 11/12/17 Time of Evaluation: 22:00 - Subjective Subjective: He is still having fluctuation of his mental status, mostly lethargic. The EEG is pending, it is not clear what is the cause of his sudden AMS yesterday and until present he is not back to his base line of 2 to 3 days ago when he was responsive, interactive, smiley, trying to talk. The is still interfering significantly in his treatment, preventing giving the appropriate dose of Lamictal, thinking it will cause him lethargy and may hurt him. Yesterday she prevented giving BIPAP when he was suddenly lethargic. Objective - Vital Signs/Intake and Output Vital Signs (last 24 hours): Temp Pulse Resp BP Pulse Ox 97.1 F L 73 12 112/54 L 100 11/12/17 20:00 11/12/17 22:00 11/12/17 22:00 11/12/17 22:00 11/12/17 22:00 Intake and Output: 11/12/17 11/13/17 18:59 06:59 Intake Total 1550 280 Output Total 1700 Balance -150 280 - Medications Medications: Current Medications Acetaminophen (Tylenol 650mg/20.3ml Solution Ud) 650 mg PO Q6 PRN PRN Reason: Temperature Last Admin: 11/01/17 09:32 Dose: 650 mg Apixaban (Eliquis) 2.5 mg PO BID [facility] PRN Reason: Protocol Last Admin: 11/12/17 16:24 Dose: 2.5 mg Cholecalciferol (Vitamin D) 5,000 intlu PO DAILY [facility] Last Admin: 11/12/17 08:37 Dose: 5,000 intlu Collagenase (Santyl) 1 applic TOP DAILY YUKI Last Admin: 11/12/17 08:45 Dose: 1 appl Diltiazem HCl (Cardizem) 60 mg PO 0300,0900,1500,2100 [facility] Last Admin: 11/12/17 21:11 Dose: 60 mg Dimethicone (Proshield Plus Skin Protectant) 1 applic TOP Q8 YUKI Last Admin: 11/12/17 16:27 Dose: 1 applic Ferrous Gluconate (Fergon) 324 mg PO DAILY [facility] Last Admin: 11/12/17 08:37 Dose: 324 mg Furosemide (Lasix) 40 mg IVP DAILY [facility] Last Admin: 11/12/17 08:40 Dose: 40 mg Meropenem 500 mg/ Sodium (Chloride) 100 mls @ 100 mls/hr IVPB Q8 YUKI PRN Reason: Protocol Last Admin: 11/12/17 16:27 Dose: 100 mls/hr Metronidazole (Flagyl 500mg/100ml Ns) 100 mls @ 100 mls/hr IVPB Q8 YUKI PRN Reason: Protocol Last Admin: 11/12/17 16:25 Dose: 100 mls/hr Vancomycin HCl 1 gm/ Sodium (Chloride) 250 mls @ 166.667 mls/hr IVPB Q48H YUKI PRN Reason: Protocol Last Admin: 11/12/17 08:48 Dose: 166.667 mls/hr Lactobacillus Acidophilus (Bacid Acidophilus) 1 cap PO BID [facility] Last Admin: 11/12/17 16:38 Dose: 1 cap Lamotrigine (Lamictal) 50 mg PO Q12@0930,2130 [facility] Last Admin: 11/12/17 21:10 Dose: 50 mg Metoprolol Tartrate (Lopressor) 5 mg IVP 0000,0600,1200,1800 [facility] Last Admin: 11/12/17 17:53 Dose: 5 mg Pantoprazole Sodium (Protonix Ec Tab) 40 mg PO DAILY [facility] Last Admin: 11/12/17 17:55 Dose: 40 mg Sildenafil Citrate (Revatio) 20 mg PO BID [facility] Last Admin: 11/12/17 16:29 Dose: 20 mg Spironolactone (Aldactone) 25 mg PO BID [facility] Last Admin: 11/12/17 16:24 Dose: 25 mg - Labs Labs: 11/12/17 05:00 11/12/17 05:00 PT 14.9 Seconds (9.8-13.1) H 10/29/17 04:20 INR 1.3 (0.9-1.2) H 10/29/17 04:20 APTT 34.4 Seconds (25.6-37.1) 10/26/17 12:30 Assessment and Plan (1) CANDELARIA (acute kidney injury) Status: Resolved (2) Acute respiratory failure Status: Acute (3) Altered mental status Status: Deleted (4) Pleural effusion, bilateral Status: Acute (5) Pneumonia Status: Acute (6) Seizure disorder Status: Suspected (7) Encephalopathy Status: Acute
[2017-11-13] MEDS: metroNIDAZOLE 500mg/100ml NS 100 ML IVPB SCH ×3 (00:39→16:46)
[2017-11-13] MEDS: Metoprolol 1 mg/ml Inj IVP SCH ×4 (00:40→18:48)
[2017-11-13] MEDS: Meropenem 500 MG in Sodium Chloride 0.9% 100 ML IVPB SCH ×3 (00:40→16:48)
[2017-11-13] MEDS: Proshield Plus GEL TOP SCH ×3 (00:41→16:50)
[2017-11-13 06:51] LABS: HEMOGLOBIN 9.1 g/dL (12.0-18.0); MEAN CELL VOLUME 94.2 fl (80.0-94.0); MEAN CORPUSCULAR HEMOGLOBIN 30.7 pg (27.0-31.0); MEAN CORPUSCULAR HGB CONC 32.6 g/dL (33.0-37.0); RBC 2.97 Mil/uL (4.40-5.90); WHITE BLOOD COUNT 7.4 K/uL (4.8-10.8)
[2017-11-13 07:01] LABS: BLOOD UREA NITROGEN 37 mg/dl (9-20); CALCIUM 8.8 mg/dL (8.4-10.2); GFR AFRICAN-AMERICAN > 60; GFR NON-AFRICAN AMERICAN > 60
--- NOTE | 2017-11-13 08:48 | CP.PCM.PN ---
<Yoon Garvin - Last Filed: 11/13/17 11:45> Subjective - Date & Time of Evaluation Date of Evaluation: 11/13/17 Time of Evaluation: 08:42 - Subjective Subjective: PGY2 progress note for cardiology, Dr. Castro Pt is seen and examined at bedside. No acute events overnight. is at bedside. Pt is responsive to verbal stimuli and answer questions. Chest tube in place. ROS unobtainable due to mental status. Objective - Vital Signs/Intake and Output Vital Signs (last 24 hours): Temp Pulse Resp BP Pulse Ox 98.1 F 76 18 141/54 L 100 11/13/17 08:00 11/13/17 08:00 11/13/17 08:00 11/13/17 08:00 11/13/17 08:00 Intake and Output: 11/13/17 11/13/17 06:59 18:59 Intake Total 1070 Output Total 650 Balance 420 - Medications Medications: Current Medications Acetaminophen (Tylenol 650mg/20.3ml Solution Ud) 650 mg PO Q6 PRN PRN Reason: Temperature Last Admin: 11/01/17 09:32 Dose: 650 mg Apixaban (Eliquis) 2.5 mg PO BID [facility] PRN Reason: Protocol Last Admin: 11/12/17 16:24 Dose: 2.5 mg Cholecalciferol (Vitamin D) 5,000 intlu PO DAILY [facility] Last Admin: 11/12/17 08:37 Dose: 5,000 intlu Collagenase (Santyl) 1 applic TOP DAILY [facility] Last Admin: 11/12/17 08:45 Dose: 1 appl Diltiazem HCl (Cardizem) 60 mg PO 0300,0900,1500,2100 [facility] Last Admin: 11/13/17 04:54 Dose: 60 mg Dimethicone (Proshield Plus Skin Protectant) 1 applic TOP Q8 [facility] Last Admin: 11/13/17 00:41 Dose: 1 applic Ferrous Gluconate (Fergon) 324 mg PO DAILY [facility] Last Admin: 11/12/17 08:37 Dose: 324 mg Furosemide (Lasix) 40 mg IVP DAILY [facility] Last Admin: 11/12/17 08:40 Dose: 40 mg Meropenem 500 mg/ Sodium (Chloride) 100 mls @ 100 mls/hr IVPB Q8 [facility] PRN Reason: Protocol Last Admin: 11/13/17 00:40 Dose: 100 mls/hr Metronidazole (Flagyl 500mg/100ml Ns) 100 mls @ 100 mls/hr IVPB Q8 [facility] PRN Reason: Protocol Last Admin: 11/13/17 00:39 Dose: 100 mls/hr Vancomycin HCl 1 gm/ Sodium (Chloride) 250 mls @ 166.667 mls/hr IVPB Q48H [facility] PRN Reason: Protocol Last Admin: 11/12/17 08:48 Dose: 166.667 mls/hr Lactobacillus Acidophilus (Bacid Acidophilus) 1 cap PO BID [facility] Last Admin: 11/12/17 16:38 Dose: 1 cap Lamotrigine (Lamictal) 50 mg PO Q12@0930,2130 [facility] Last Admin: 11/12/17 21:10 Dose: 50 mg Metoprolol Tartrate (Lopressor) 5 mg IVP 0000,0600,1200,1800 [facility] Last Admin: 11/13/17 06:40 Dose: 5 mg Pantoprazole Sodium (Protonix Ec Tab) 40 mg PO DAILY [facility] Last Admin: 11/12/17 17:55 Dose: 40 mg Sildenafil Citrate (Revatio) 20 mg PO BID [facility] Last Admin: 11/12/17 16:29 Dose: 20 mg Spironolactone (Aldactone) 25 mg PO BID [facility] Last Admin: 11/12/17 16:24 Dose: 25 mg - Labs Labs: 11/13/17 06:45 11/13/17 06:45 PT 14.9 Seconds (9.8-13.1) H 10/29/17 04:20 INR 1.3 (0.9-1.2) H 10/29/17 04:20 APTT 34.4 Seconds (25.6-37.1) 10/26/17 12:30 - Constitutional Appears: Non-toxic, No Acute Distress - Head Exam Head Exam: ATRAUMATIC - ENT Exam ENT Exam: Mucous Membranes Moist - Respiratory Exam Respiratory Exam: Rhonchi. absent: Accessory Muscle Use, Rales, Wheezes, Respiratory Distress - Cardiovascular Exam Cardiovascular Exam: REGULAR RHYTHM, +S1, +S2. absent: Gallop, Rubs, Murmur - GI/Abdominal Exam GI & Abdominal Exam: Soft, Normal Bowel Sounds. absent: Distended, Firm, Guarding, Rigid, Tenderness, Organomegaly - Neurological Exam Neurological Exam: Alert, Awake, Oriented x3 - Psychiatric Exam Psychiatric exam: Normal Affect, Normal Mood - Skin Skin Exam: Dry, Intact, Normal Color, Warm Assessment and Plan - Assessment and Plan (Free Text) Assessment: (1) A-fib Continue cardizem and lopressor IV. Pending swallow eval today. Continue anticoagulation with eliquis (2) Aortic valve vegetation Currently on meropenem and vanco ID following (3) Acute respiratory failure with hypoxia likely 2/2 B/L effusion On HFNC sating at 100% (4) Pulmonary HTN Continue Revatio 20 mg BID (5) Acute decompensated heart failure Currently on spironolactone BID and lasixs 40 mg IVP qd Echo shows EF of 60-65% (6) Left pleura effusion left chest tube still in place Cont abx per ID Sputum grew pseudomonas (7) Encephalopathy Mental status waxes and wanes Currently on Lamictal Neurology is following (8) Hyperkalemia improved Continue to monitor (9) Seizure disorder Neuro following Currently on Lamictal Case will be discussed with attending, Dr. Castro <Varun Castro - Last Filed: 11/13/17 22:56> Objective - Vital Signs/Intake and Output Vital Signs (last 24 hours): Temp Pulse Resp BP Pulse Ox 97.3 F L 81 18 108/64 95 11/13/17 20:06 11/13/17 21:36 11/13/17 21:02 11/13/17 21:36 11/13/17 20:06 Intake and Output: 11/13/17 11/14/17 18:59 06:59 Intake Total 1440 Output Total 1800 Balance -360 - Medications Medications: Current Medications Acetaminophen (Tylenol 650mg/20.3ml Solution Ud) 650 mg PO Q6 PRN PRN Reason: Temperature Last Admin: 11/01/17 09:32 Dose: 650 mg Apixaban (Eliquis) 2.5 mg PO BID [facility] PRN Reason: Protocol Last Admin: 11/13/17 16:45 Dose: 2.5 mg Cholecalciferol (Vitamin D) 5,000 intlu PO DAILY [facility] Last Admin: 11/13/17 09:02 Dose: 5,000 intlu Collagenase (Santyl) 1 applic TOP DAILY [facility] Last Admin: 11/13/17 09:33 Dose: 1 appl Diltiazem HCl (Cardizem) 60 mg PO 0300,0900,1500,2100 [facility] Last Admin: 11/13/17 21:36 Dose: 60 mg Dimethicone (Proshield Plus Skin Protectant) 1 applic TOP Q8 [facility] Last Admin: 11/13/17 16:50 Dose: 1 applic Ferrous Gluconate (Fergon) 324 mg PO DAILY [facility] Last Admin: 11/13/17 08:57 Dose: 324 mg Furosemide (Lasix) 40 mg IVP DAILY [facility] Last Admin: 11/13/17 08:58 Dose: 40 mg Meropenem 500 mg/ Sodium (Chloride) 100 mls @ 100 mls/hr IVPB Q8 [facility] PRN Reason: Protocol Last Admin: 11/13/17 16:48 Dose: 100 mls/hr Metronidazole (Flagyl 500mg/100ml Ns) 100 mls @ 100 mls/hr IVPB Q8 [facility] PRN Reason: Protocol Last Admin: 11/13/17 16:46 Dose: 100 mls/hr Vancomycin HCl 1 gm/ Sodium (Chloride) 250 mls @ 166.667 mls/hr IVPB Q48H [facility] PRN Reason: Protocol Last Admin: 11/12/17 08:48 Dose: 166.667 mls/hr Lactobacillus Acidophilus (Bacid Acidophilus) 1 cap PO BID [facility] Last Admin: 11/13/17 16:46 Dose: 1 cap Lamotrigine (Lamictal) 50 mg PO Q12@0930,2130 [facility] Last Admin: 11/13/17 21:37 Dose: 50 mg Metoprolol Tartrate (Lopressor) 5 mg IVP 0000,0600,1200,1800 [facility] Last Admin: 11/13/17 18:48 Dose: 5 mg Pantoprazole Sodium (Protonix Ec Tab) 40 mg PO DAILY [facility] Last Admin: 11/13/17 08:55 Dose: 40 mg Sildenafil Citrate (Revatio) 20 mg PO BID [facility] Last Admin: 11/13/17 16:45 Dose: 20 mg Spironolactone (Aldactone) 25 mg PO BID [facility] Last Admin: 11/13/17 16:45 Dose: 25 mg - Labs Labs: 11/13/17 06:45 11/13/17 06:45 PT 14.9 Seconds (9.8-13.1) H 12/19/17 04:20 INR 1.3 (0.9-1.2) H 10/29/17 04:20 APTT 34.4 Seconds (25.6-37.1) 10/26/17 12:30 Assessment and Plan (1) A-fib Status: Chronic (2) Acute on chronic diastolic (congestive) heart failure Status: Chronic (3) Acute respiratory failure with hypoxia Status: Acute (4) Altered mental status Status: Deleted (5) HTN (hypertension) Status: Chronic (6) Seizure disorder Status: Chronic (7) CANDELARIA (acute kidney injury) Status: Resolved (8) Encephalopathy Status: Acute (9) Hypothermia Status: Deleted (10) Pleural effusion, bilateral Status: Acute (11) Supratherapeutic international normalized ratio (INR) Status: Acute (12) Acute decompensated heart failure Status: Acute (13) Atrial fibrillation with RVR Status: Acute Attending/Attestation - Attestation I have personally seen and examined this patient.: Yes I have fully participated in the care of the patient.: Yes I have reviewed all pertinent clinical information, including history, physical exam and plan: Yes Notes (Text): 11/13/17 22:52 patient clinically feeling better EEG ? seizures vs/. metabolic encephatolopathy continue current cardiac meds for now
[2017-11-13] MEDS: Pantoprazole 40 mg EC Tab PO SCH (08:55)
[2017-11-13] MEDS: Sildenafil 20 MG TAB PO SCH ×2 (08:56→16:45)
[2017-11-13] MEDS: Cholecalciferol 1,000 INTLU TAB PO SCH (09:02)
[2017-11-13] MEDS: Santyl Collagenase OINTMENT TOP SCH (09:33)
[2017-11-13] MEDS: Lactobacillus Acidophilus 500 MU Cap PO SCH ×2 (09:35→16:46)
--- NOTE | 2017-11-13 12:28 | CP.CCUPN ---
CCU Subjective - Physician Review Subjective (Free Text): Discussed with [employer]: has passed bedside Dysphagia eval without signs of regurg, coughing, gagging or desaturation after several swallow boluses. Video swallow study has yet to be performed due to problematic issues with transporting patient off of ICU to the Radiology floor. His overall neuromental status is unchanged from the previous 2 weeks of descriptive observations on his limited wakefulness and responsiveness. Left pigtail catheter no longer draining any fluid over the last several days. Other vitals and I/O's reviewed. No fever spikes; fluid balance has been intermittently negative over the past several days, and trends show significant weight loss of approx. 30 lbs over a 3-4 week period with ongoing diuresis. ROS: No other pertinent negs or positives on 10+ system review. PMSFH: All other Nursing and physician documentation reviewed to date; no new pertinent info noted relevant to current medical problems. CXR: (my interp)- yesterdays film reviewed. No films from today: mild basilar atelectasis on R, left base remains opacified and left hemidiaphragm is not visible. Left pigtail catheter position intact, no PTX. IMPRESSION / MAJOR PROBLEMS NOW: 1. Acute Resp ( Hypoxemic) failure 2 bilat effusions, and compressive atelectasis 2. Encephalopathy: etiology unclear, ?? metabolic vs cryptogenic seizures vs ?? CVA?? 3. Chronic A Fib, presently with controlled VR 4. r/o Cardiomyopathy vs Diastolic Dysfx CHF- non-invasive TTE shows preserved EF. 5. Azotemia, CKD III ( Bun/Cr was 36/1.5 at the time of last hospital discharge) 6. Warfarin induced-coagulopathy on admission PLAN: 1. Will discuss with PMD regarding foregoing any further eval with Video swallow studies since he is always at high risk for Aspiration Pna, despite ability to swallow properly. Continuous NGT feeds have been so far been excellent in improving nutritional status and healing of dependent skin lesions. 2. Maintenance Eliquis, Revatio remains. 3. He may be too hypotensive for tolerance to Cardizem dosage increase. 4. Lasix reduced to once daily and continuance of Aldactone regimen. 5. Procalcitonin levels have been normal, check a repeat in order to help decide on abx mgmt.. CCU Objective - Vital Signs / Intake & Output Vital Signs (Last 4 hours): Vital Signs Temp Pulse Resp BP Pulse Ox 11/13/17 12:00 97.6 F 74 18 120/60 100 11/13/17 11:55 79 108/52 L 11/13/17 08:58 140/54 L 11/13/17 08:56 75 141/54 L Intake and Output (Last 8hrs): Intake & Output 11/12/17 11/13/17 11/13/17 22:59 06:59 14:59 Intake Total 860 790 720 Output Total 400 650 750 Balance 460 140 -30 Intake: IV 200 200 Intake, Piggyback 100 Tube Feeding 560 590 420 Free Water Flush 100 100 100 Output: Urine 400 650 600 Urethral (Wang) 400 650 600 Stool 150 Other: # Bowel Movements 1 1 - Physical Exam Head: Positive for: Atraumatic, Normocephalic, Other (NG tube) Pupils: Positive for: PERRL, Sluggish Extroacular Muscles: Positive for: EOMI Conjunctiva: Positive for: Normal. Negative for: Icteric Ears: Positive for: Normal Mouth: Positive for: Moist Mucous Membranes Pharnyx: Negative for: ERYTHEMA Neck: Positive for: Normal Range of Motion. Negative for: JVD Respiratory/Chest: Positive for: Good Air Exchange, Respiratory Distress, Decreased Breath Sounds, Rhonchi (upper airway rhonchi), Tachypneic. Negative for: Accessory Muscle Use, Wheezes Cardiovascular: Positive for: Murmurs, Irregular Rhythm, Peripheal Pulses Present, Tachycardic. Negative for: Normal S1, S2, Rub Abdomen: Positive for: Normal Bowel Sounds. Negative for: Tenderness, Distention, Peritoneal Signs Upper Extremity: Positive for: Edema Lower Extremity: Positive for: Edema, NORMAL PULSES. Negative for: CALF TENDERNESS, Cyanosis Neurological: Positive for: Other (withdraws to deep pain) Skin: Positive for: Warm, Dry. Negative for: Rashes Psychiatric: Positive for: Alert, Lethargic (mental status waxwes and wanes). Negative for: Oriented x 3, Anxious, Agitated - Medications Active Medications: Active Medications Generic Name Dose Route Start Last Admin Trade Name Freq PRN Reason Stop Dose Admin Acetaminophen 650 mg 10/25/17 16:16 11/01/17 09:32 Tylenol 650mg/20.3ml Solution Ud PO 650 mg Q6 PRN Administration Temperature Apixaban 2.5 mg 11/08/17 17:00 11/13/17 08:56 Eliquis PO 2.5 mg BID [facility] Administration Protocol Cholecalciferol 5,000 intlu 10/18/17 09:00 11/13/17 09:02 Vitamin D PO 5,000 intlu DAILY [facility] Administration Collagenase 1 applic 11/01/17 09:00 11/13/17 09:33 Santyl TOP 1 appl DAILY [facility] Administration Diltiazem HCl 60 mg 11/08/17 08:00 11/13/17 08:56 Cardizem PO 60 mg 0300,0900,1500,2100 [facility] Administration Dimethicone 1 applic 10/23/17 09:00 11/13/17 09:33 Proshield Plus Skin Protectant TOP 1 applic Q8 [facility] Administration Ferrous Gluconate 324 mg 10/24/17 09:00 11/13/17 08:57 Fergon PO 324 mg DAILY [facility] Administration Furosemide 40 mg 11/04/17 09:00 11/13/17 08:58 Lasix IVP 40 mg DAILY [facility] Administration Meropenem 500 mg/ Sodium 100 mls @ 100 mls/hr 10/31/17 12:30 11/13/17 09:31 Chloride IVPB 100 mls/hr Q8 [facility] Administration Protocol Metronidazole 100 mls @ 100 mls/hr 11/01/17 17:00 11/13/17 09:00 Flagyl 500mg/100ml Ns IVPB 100 mls/hr Q8 [facility] Administration Protocol Vancomycin HCl 1 gm/ Sodium 250 mls @ 166.667 mls/hr 11/02/17 09:00 11/12/17 08:48 Chloride IVPB 166.667 mls/hr Q48H [facility] Administration Protocol Lactobacillus Acidophilus 1 cap 10/08/17 09:00 11/13/17 09:35 Bacid Acidophilus PO 1 cap BID [facility] Administration Lamotrigine 50 mg 10/31/17 21:30 11/13/17 09:31 Lamictal PO 50 mg Q12@0930,2130 [facility] Administration Metoprolol Tartrate 5 mg 11/11/17 12:00 11/13/17 11:55 Lopressor IVP 5 mg 0000,0600,1200,1800 [facility] Administration Pantoprazole Sodium 40 mg 11/12/17 17:00 11/13/17 08:55 Protonix Ec Tab PO 40 mg DAILY [facility] Administration Sildenafil Citrate 20 mg 11/01/17 09:00 11/13/17 08:56 Revatio PO 20 mg BID [facility] Administration Spironolactone 25 mg 11/07/17 17:00 11/13/17 09:02 Aldactone PO 25 mg BID [facility] Administration - Patient Studies Lab Studies: Lab Studies 11/13/17 11/13/17 11/11/17 Range/Units 06:45 06:45 17:39 WBC 7.4 (4.8-10.8) K/uL RBC 2.97 L (4.40-5.90) Mil/uL Hgb 9.1 L (12.0-18.0) g/dL Hct 28.0 L (35.0-51.0) % MCV 94.2 H (80.0-94.0) fl MCH 30.7 (27.0-31.0) pg MCHC 32.6 L (33.0-37.0) g/dL RDW 21.0 H (11.5-14.5) % Plt Count 482 H (130-400) K/uL Sodium 137 (132-148) mmol/l Potassium 4.5 (3.6-5.0) MMOL/L Chloride 102 (98-107) mmol/L Carbon Dioxide 29 (22-30) mmol/L Anion Gap 11 (10-20) BUN 37 H (9-20) mg/dl Creatinine 0.8 (0.8-1.5) mg/dl Est GFR ( Amer) > 60 Est GFR (Non-Af Amer) > 60 Random Glucose 112 H (75-110) mg/dL Calcium 8.8 (8.4-10.2) mg/dL Plasma Cortisol PM 11.2 (1.7-14.1) ug/dL Laboratory Results - last 24 hr 11/11/17 11/13/17 11/13/17 17:39 06:45 06:45 WBC 7.4 RBC 2.97 L Hgb 9.1 L Hct 28.0 L MCV 94.2 H MCH 30.7 MCHC 32.6 L RDW 21.0 H Plt Count 482 H Sodium 137 Potassium 4.5 Chloride 102 Carbon Dioxide 29 Anion Gap 11 BUN 37 H Creatinine 0.8 Est GFR ( Amer) > 60 Est GFR (Non-Af Amer) > 60 Random Glucose 112 H Calcium 8.8 Plasma Cortisol PM 11.2 Fingerstick Blood Sugar Results: 83 Review of Systems - Review of Systems All systems: reviewed and no additional remarkable complaints except (as above)
--- NOTE | 2017-11-13 12:40 | CP.PCM.PN ---
Subjective - Date & Time of Evaluation Date of Evaluation: 11/13/17 Time of Evaluation: 09:00 - Subjective Subjective: events noted passed swallow eval IV rx renewed Dr Cole to re-eval Objective - Vital Signs/Intake and Output Vital Signs (last 24 hours): Temp Pulse Resp BP Pulse Ox 97.6 F 72 18 120/60 100 11/13/17 12:00 11/13/17 12:00 11/13/17 12:00 11/13/17 12:00 11/13/17 12:00 Intake and Output: 11/13/17 11/13/17 06:59 18:59 Intake Total 1070 720 Output Total 650 750 Balance 420 -30 - Medications Medications: Current Medications Acetaminophen (Tylenol 650mg/20.3ml Solution Ud) 650 mg PO Q6 PRN PRN Reason: Temperature Last Admin: 11/01/17 09:32 Dose: 650 mg Apixaban (Eliquis) 2.5 mg PO BID [facility] PRN Reason: Protocol Last Admin: 11/13/17 08:56 Dose: 2.5 mg Cholecalciferol (Vitamin D) 5,000 intlu PO DAILY [facility] Last Admin: 11/13/17 09:02 Dose: 5,000 intlu Collagenase (Santyl) 1 applic TOP DAILY [facility] Last Admin: 11/13/17 09:33 Dose: 1 appl Diltiazem HCl (Cardizem) 60 mg PO 0300,0900,1500,2100 [facility] Last Admin: 11/13/17 08:56 Dose: 60 mg Dimethicone (Proshield Plus Skin Protectant) 1 applic TOP Q8 [facility] Last Admin: 11/13/17 09:33 Dose: 1 applic Ferrous Gluconate (Fergon) 324 mg PO DAILY [facility] Last Admin: 11/13/17 08:57 Dose: 324 mg Furosemide (Lasix) 40 mg IVP DAILY [facility] Last Admin: 11/13/17 08:58 Dose: 40 mg Meropenem 500 mg/ Sodium (Chloride) 100 mls @ 100 mls/hr IVPB Q8 [facility] PRN Reason: Protocol Last Admin: 11/13/17 09:31 Dose: 100 mls/hr Metronidazole (Flagyl 500mg/100ml Ns) 100 mls @ 100 mls/hr IVPB Q8 [facility] PRN Reason: Protocol Last Admin: 11/13/17 09:00 Dose: 100 mls/hr Vancomycin HCl 1 gm/ Sodium (Chloride) 250 mls @ 166.667 mls/hr IVPB Q48H [facility] PRN Reason: Protocol Last Admin: 11/12/17 08:48 Dose: 166.667 mls/hr Lactobacillus Acidophilus (Bacid Acidophilus) 1 cap PO BID [facility] Last Admin: 11/13/17 09:35 Dose: 1 cap Lamotrigine (Lamictal) 50 mg PO Q12@0930,2130 [facility] Last Admin: 11/13/17 09:31 Dose: 50 mg Metoprolol Tartrate (Lopressor) 5 mg IVP 0000,0600,1200,1800 [facility] Last Admin: 11/13/17 11:55 Dose: 5 mg Pantoprazole Sodium (Protonix Ec Tab) 40 mg PO DAILY [facility] Last Admin: 11/13/17 08:55 Dose: 40 mg Sildenafil Citrate (Revatio) 20 mg PO BID [facility] Last Admin: 11/13/17 08:56 Dose: 20 mg Spironolactone (Aldactone) 25 mg PO BID [facility] Last Admin: 11/13/17 09:02 Dose: 25 mg - Labs Labs: 11/13/17 06:45 11/13/17 06:45 PT 14.9 Seconds (9.8-13.1) H 10/29/17 04:20 INR 1.3 (0.9-1.2) H 10/29/17 04:20 APTT 34.4 Seconds (25.6-37.1) 10/26/17 12:30 - Constitutional Appears: Confused, Cachectic, Chronically Ill - Head Exam Head Exam: NORMOCEPHALIC - Eye Exam Eye Exam: PERRL - ENT Exam ENT Exam: Mucous Membranes Dry - Neck Exam Neck Exam: absent: Lymphadenopathy - Respiratory Exam Respiratory Exam: Decreased Breath Sounds, Rales, Rhonchi - Cardiovascular Exam Cardiovascular Exam: REGULAR RHYTHM - GI/Abdominal Exam GI & Abdominal Exam: Distended, Soft - Rectal Exam Rectal Exam: Deferred - Exam Exam: NORMAL INSPECTION - Extremities Exam Extremities Exam: absent: Pedal Edema - Back Exam Back Exam: absent: CVA tenderness (L), CVA tenderness (R) Assessment and Plan (1) CANDELARIA (acute kidney injury) Status: Resolved (2) Acute respiratory failure Status: Acute (3) Altered mental status Status: Deleted (4) Diastolic CHF, acute on chronic Status: Acute (5) Pleural effusion, bilateral Status: Acute (6) Pneumonia Status: Acute (7) Aortic valve vegetation Status: Acute
--- NOTE | 2017-11-13 14:02 | RAD ---
HISTORY: Chest tube. COMPARISON: November 11, 2017. FINDINGS: LUNGS: No significant interval change compared to the prior examination(s). PLEURA: Position of the pigtail catheter in the left pleural space is unchanged. CARDIOVASCULAR: Cardiomegaly. PICC line in satisfactory position OSSEOUS STRUCTURES: No significant abnormalities. VISUALIZED UPPER ABDOMEN: Normal. OTHER FINDINGS: Stable position of nasogastric tube. IMPRESSION: No significant interval change compared to the prior examination(s).
--- NOTE | 2017-11-13 21:53 | CP.PCM.PN ---
Subjective - Date & Time of Evaluation Date of Evaluation: 11/13/17 Time of Evaluation: 12:30 - Subjective Subjective: Awake, answer questions , Patient's at bedside Objective - Vital Signs/Intake and Output Vital Signs (last 24 hours): Temp Pulse Resp BP Pulse Ox 97.3 F L 81 18 108/64 95 11/13/17 20:06 11/13/17 21:36 11/13/17 21:02 11/13/17 21:36 11/13/17 20:06 Intake and Output: 11/13/17 11/14/17 18:59 06:59 Intake Total 1440 Output Total 1800 Balance -360 - Medications Medications: Current Medications Acetaminophen (Tylenol 650mg/20.3ml Solution Ud) 650 mg PO Q6 PRN PRN Reason: Temperature Last Admin: 11/01/17 09:32 Dose: 650 mg Apixaban (Eliquis) 2.5 mg PO BID [facility] PRN Reason: Protocol Last Admin: 11/13/17 16:45 Dose: 2.5 mg Cholecalciferol (Vitamin D) 5,000 intlu PO DAILY [facility] Last Admin: 11/13/17 09:02 Dose: 5,000 intlu Collagenase (Santyl) 1 applic TOP DAILY [facility] Last Admin: 11/13/17 09:33 Dose: 1 appl Diltiazem HCl (Cardizem) 60 mg PO 0300,0900,1500,2100 [facility] Last Admin: 11/13/17 21:36 Dose: 60 mg Dimethicone (Proshield Plus Skin Protectant) 1 applic TOP Q8 [facility] Last Admin: 11/13/17 16:50 Dose: 1 applic Ferrous Gluconate (Fergon) 324 mg PO DAILY [facility] Last Admin: 11/13/17 08:57 Dose: 324 mg Furosemide (Lasix) 40 mg IVP DAILY [facility] Last Admin: 11/13/17 08:58 Dose: 40 mg Meropenem 500 mg/ Sodium (Chloride) 100 mls @ 100 mls/hr IVPB Q8 [facility] PRN Reason: Protocol Last Admin: 11/13/17 16:48 Dose: 100 mls/hr Metronidazole (Flagyl 500mg/100ml Ns) 100 mls @ 100 mls/hr IVPB Q8 [facility] PRN Reason: Protocol Last Admin: 11/13/17 16:46 Dose: 100 mls/hr Vancomycin HCl 1 gm/ Sodium (Chloride) 250 mls @ 166.667 mls/hr IVPB Q48H [facility] PRN Reason: Protocol Last Admin: 11/12/17 08:48 Dose: 166.667 mls/hr Lactobacillus Acidophilus (Bacid Acidophilus) 1 cap PO BID [facility] Last Admin: 11/13/17 16:46 Dose: 1 cap Lamotrigine (Lamictal) 50 mg PO Q12@0930,2130 [facility] Last Admin: 11/13/17 21:37 Dose: 50 mg Metoprolol Tartrate (Lopressor) 5 mg IVP 0000,0600,1200,1800 [facility] Last Admin: 11/13/17 18:48 Dose: 5 mg Pantoprazole Sodium (Protonix Ec Tab) 40 mg PO DAILY [facility] Last Admin: 11/13/17 08:55 Dose: 40 mg Sildenafil Citrate (Revatio) 20 mg PO BID [facility] Last Admin: 11/13/17 16:45 Dose: 20 mg Spironolactone (Aldactone) 25 mg PO BID [facility] Last Admin: 11/13/17 16:45 Dose: 25 mg - Labs Labs: 11/13/17 06:45 11/13/17 06:45 PT 14.9 Seconds (9.8-13.1) H 10/29/17 04:20 INR 1.3 (0.9-1.2) H 10/29/17 04:20 APTT 34.4 Seconds (25.6-37.1) 10/26/17 12:30 - Constitutional Appears: Chronically Ill - Head Exam Head Exam: NORMAL INSPECTION - Eye Exam Eye Exam: PERRL - ENT Exam Additional comments: on high flow O2, dry scab nose bridge - Neck Exam Neck Exam: Normal Inspection - Respiratory Exam Respiratory Exam: Decreased Breath Sounds (at bases) Additional comments: Left Pigtail - Cardiovascular Exam Cardiovascular Exam: Irregular Rhythm - GI/Abdominal Exam GI & Abdominal Exam: Soft, Normal Bowel Sounds - Extremities Exam Extremities Exam: Normal Inspection - Back Exam Additional comments: 3 sites in coccyx with dry dressing in place - Neurological Exam Neurological Exam: Awake (answer simple questions , generalized weakness) - Skin Skin Exam: Warm Assessment and Plan (1) Acute respiratory failure with hypoxia Status: Acute (2) Encephalopathy Status: Acute (3) Pleural effusion, bilateral Status: Resolved (4) Diastolic CHF, acute on chronic Status: Acute (5) Hx of seizure disorder Status: Chronic (6) A-fib Status: Chronic (7) CANDELARIA (acute kidney injury) Status: Resolved (8) Anemia Status: Chronic (9) Aortic valve vegetation Status: Acute (10) SUSAN (obstructive sleep apnea) Status: Chronic - Assessment and Plan (Free Text) Plan: VSS , A Fib rate controlled, CXR small B/L effusions , mild pulmonary congestion , wbc 7.4 , Hgb 9.1 , continue Flagyl , Vanco , Merren , Eliquis , Cardizem , Lasix , Spirolactone , Lamictal , High Flow O2 , BIPAP overnight , Patient is improved and Stable to be transfered to Telemetry, IR consult to DC L Pigtail, Patient passed swallowing eval, but as discussed [facility] Supervisor Type Disk Quality Control continue NG tube feeding for proper nutrition , cancel Ba swallow.
--- NOTE | 2017-11-13 22:19 | CP.PCM.PN ---
Subjective - Date & Time of Evaluation Date of Evaluation: 11/13/17 Time of Evaluation: 21:30 - Subjective Subjective: Patient is improving, able to respond to verbal stimulation and is trying to talk No seizures, EEG Result is pending. Normal VS Objective - Vital Signs/Intake and Output Vital Signs (last 24 hours): Temp Pulse Resp BP Pulse Ox 97.3 F L 81 18 108/64 95 11/13/17 20:06 11/13/17 21:36 11/13/17 21:02 11/13/17 21:36 11/13/17 20:06 Intake and Output: 11/13/17 11/14/17 18:59 06:59 Intake Total 1440 Output Total 1800 Balance -360 - Medications Medications: Current Medications Acetaminophen (Tylenol 650mg/20.3ml Solution Ud) 650 mg PO Q6 PRN PRN Reason: Temperature Last Admin: 11/01/17 09:32 Dose: 650 mg Apixaban (Eliquis) 2.5 mg PO BID [facility] PRN Reason: Protocol Last Admin: 11/13/17 16:45 Dose: 2.5 mg Cholecalciferol (Vitamin D) 5,000 intlu PO DAILY [facility] Last Admin: 11/13/17 09:02 Dose: 5,000 intlu Collagenase (Santyl) 1 applic TOP DAILY [facility] Last Admin: 11/13/17 09:33 Dose: 1 appl Diltiazem HCl (Cardizem) 60 mg PO 0300,0900,1500,2100 [facility] Last Admin: 11/13/17 21:36 Dose: 60 mg Dimethicone (Proshield Plus Skin Protectant) 1 applic TOP Q8 [facility] Last Admin: 11/13/17 16:50 Dose: 1 applic Ferrous Gluconate (Fergon) 324 mg PO DAILY [facility] Last Admin: 11/13/17 08:57 Dose: 324 mg Furosemide (Lasix) 40 mg IVP DAILY [facility] Last Admin: 11/13/17 08:58 Dose: 40 mg Meropenem 500 mg/ Sodium (Chloride) 100 mls @ 100 mls/hr IVPB Q8 [facility] PRN Reason: Protocol Last Admin: 11/13/17 16:48 Dose: 100 mls/hr Metronidazole (Flagyl 500mg/100ml Ns) 100 mls @ 100 mls/hr IVPB Q8 [facility] PRN Reason: Protocol Last Admin: 11/13/17 16:46 Dose: 100 mls/hr Vancomycin HCl 1 gm/ Sodium (Chloride) 250 mls @ 166.667 mls/hr IVPB Q48H [facility] PRN Reason: Protocol Last Admin: 11/12/17 08:48 Dose: 166.667 mls/hr Lactobacillus Acidophilus (Bacid Acidophilus) 1 cap PO BID [facility] Last Admin: 11/13/17 16:46 Dose: 1 cap Lamotrigine (Lamictal) 50 mg PO Q12@0930,2130 [facility] Last Admin: 11/13/17 21:37 Dose: 50 mg Metoprolol Tartrate (Lopressor) 5 mg IVP 0000,0600,1200,1800 [facility] Last Admin: 11/13/17 18:48 Dose: 5 mg Pantoprazole Sodium (Protonix Ec Tab) 40 mg PO DAILY [facility] Last Admin: 11/13/17 08:55 Dose: 40 mg Sildenafil Citrate (Revatio) 20 mg PO BID [facility] Last Admin: 11/13/17 16:45 Dose: 20 mg Spironolactone (Aldactone) 25 mg PO BID [facility] Last Admin: 11/13/17 16:45 Dose: 25 mg - Labs Labs: 11/13/17 06:45 11/13/17 06:45 PT 14.9 Seconds (9.8-13.1) H 10/29/17 04:20 INR 1.3 (0.9-1.2) H 10/29/17 04:20 APTT 34.4 Seconds (25.6-37.1) 10/26/17 12:30 Assessment and Plan (1) CANDELARIA (acute kidney injury) Status: Resolved (2) Acute respiratory failure Status: Acute (3) Altered mental status Status: Deleted (4) Pleural effusion, bilateral Status: Acute (5) Pneumonia Status: Acute (6) Seizure disorder Status: Suspected (7) Encephalopathy Status: Acute
[2017-11-14] MEDS: Metoprolol 1 mg/ml Inj IVP SCH ×2 (00:26→05:57)
[2017-11-14] MEDS: metroNIDAZOLE 500mg/100ml NS 100 ML IVPB SCH ×3 (00:27→17:11)
[2017-11-14] MEDS: Meropenem 500 MG in Sodium Chloride 0.9% 100 ML IVPB SCH ×3 (00:28→17:12)
[2017-11-14] MEDS: Proshield Plus GEL TOP SCH ×3 (01:05→17:08)
[2017-11-14 05:32] LABS: HEMOGLOBIN 9.2 g/dL (12.0-18.0); MEAN CELL VOLUME 94.2 fl (80.0-94.0); MEAN CORPUSCULAR HGB CONC 32.9 g/dL (33.0-37.0); RBC 2.96 Mil/uL (4.40-5.90); RED CELL DISTRIBUTION WIDTH 21.5 % (11.5-14.5)
[2017-11-14 06:06] LABS: ALBUMIN 2.7 g/dL (3.5-5.0); ALT/SGPT 32 U/L (21-72); AST/SGOT 34 U/L (17-59); BLOOD UREA NITROGEN 37 mg/dl (9-20); CALCIUM 8.5 mg/dL (8.4-10.2); GFR AFRICAN-AMERICAN > 60; GFR NON-AFRICAN AMERICAN > 60
[2017-11-14 06:10] LABS: ALB/GLOB RATIO 0.7 (1.0-2.1)
[2017-11-14 06:11] LABS: B-TYPE NATRIURETIC PEPTIDE 934 pg/ml (0-900)
--- NOTE | 2017-11-14 08:47 | CP.PCM.PN ---
<Yoon Garvin - Last Filed: 11/14/17 08:45> Subjective - Date & Time of Evaluation Date of Evaluation: 11/14/17 Time of Evaluation: 08:45 - Subjective Subjective: PGY2 progress note for cardiology, Dr. Castro Pt seen and examined at bedside. Pt transferred to tele floor from ICU yesterday. Chest tube removed yesterday. No acute events overnight. Pt is awake and answering questions. is at bedside. Denies having any CP, SOB, abd pain. Objective - Vital Signs/Intake and Output Vital Signs (last 24 hours): Temp Pulse Resp BP Pulse Ox 97.6 F 83 20 123/61 100 11/14/17 07:48 11/14/17 07:48 11/14/17 08:06 11/14/17 07:48 11/14/17 07:48 Intake and Output: 11/14/17 11/14/17 06:59 18:59 Intake Total 1290 Output Total 700 Balance 590 - Medications Medications: Current Medications Acetaminophen (Tylenol 650mg/20.3ml Solution Ud) 650 mg PO Q6 PRN PRN Reason: Temperature Last Admin: 11/01/17 09:32 Dose: 650 mg Apixaban (Eliquis) 2.5 mg PO BID [facility] PRN Reason: Protocol Last Admin: 11/13/17 16:45 Dose: 2.5 mg Cholecalciferol (Vitamin D) 5,000 intlu PO DAILY [facility] Last Admin: 11/13/17 09:02 Dose: 5,000 intlu Collagenase (Santyl) 1 applic TOP DAILY [facility] Last Admin: 11/13/17 09:33 Dose: 1 appl Diltiazem HCl (Cardizem) 60 mg PO 0300,0900,1500,2100 [facility] Last Admin: 11/14/17 03:42 Dose: 60 mg Dimethicone (Proshield Plus Skin Protectant) 1 applic TOP Q8 [facility] Last Admin: 11/14/17 01:05 Dose: 1 applic Ferrous Gluconate (Fergon) 324 mg PO DAILY [facility] Last Admin: 11/13/17 08:57 Dose: 324 mg Furosemide (Lasix) 40 mg IVP DAILY [facility] Last Admin: 11/13/17 08:58 Dose: 40 mg Meropenem 500 mg/ Sodium (Chloride) 100 mls @ 100 mls/hr IVPB Q8 [facility] PRN Reason: Protocol Last Admin: 11/14/17 00:28 Dose: 100 mls/hr Metronidazole (Flagyl 500mg/100ml Ns) 100 mls @ 100 mls/hr IVPB Q8 [facility] PRN Reason: Protocol Last Admin: 11/14/17 00:27 Dose: 100 mls/hr Vancomycin HCl 1 gm/ Sodium (Chloride) 250 mls @ 166.667 mls/hr IVPB Q48H [facility] PRN Reason: Protocol Last Admin: 11/12/17 08:48 Dose: 166.667 mls/hr Lactobacillus Acidophilus (Bacid Acidophilus) 1 cap PO BID [facility] Last Admin: 11/13/17 16:46 Dose: 1 cap Lamotrigine (Lamictal) 50 mg PO Q12@0930,2130 [facility] Last Admin: 11/13/17 21:37 Dose: 50 mg Metoprolol Succinate (Toprol Xl) 50 mg PO DAILY [facility] Pantoprazole Sodium (Protonix Ec Tab) 40 mg PO DAILY [facility] Last Admin: 11/13/17 08:55 Dose: 40 mg Sildenafil Citrate (Revatio) 20 mg PO BID [facility] Last Admin: 11/13/17 16:45 Dose: 20 mg Spironolactone (Aldactone) 25 mg PO BID [facility] Last Admin: 11/13/17 16:45 Dose: 25 mg - Labs Labs: 11/14/17 05:27 11/14/17 05:27 PT 14.9 Seconds (9.8-13.1) H 10/29/17 04:20 INR 1.3 (0.9-1.2) H 10/29/17 04:20 APTT 34.4 Seconds (25.6-37.1) 10/26/17 12:30 - Constitutional Appears: Non-toxic, No Acute Distress - Head Exam Head Exam: ATRAUMATIC - ENT Exam ENT Exam: Mucous Membranes Moist - Respiratory Exam Respiratory Exam: Clear to Ausculation Bilateral. absent: Rales, Rhonchi, Wheezes - Cardiovascular Exam Cardiovascular Exam: REGULAR RHYTHM, +S1, +S2. absent: Gallop, Rubs, Murmur - GI/Abdominal Exam GI & Abdominal Exam: Soft, Normal Bowel Sounds. absent: Distended, Firm, Guarding, Rigid, Tenderness - Extremities Exam Extremities Exam: absent: Pedal Edema, Tenderness - Neurological Exam Neurological Exam: Alert, Awake - Psychiatric Exam Psychiatric exam: Normal Affect, Normal Mood - Skin Skin Exam: Dry, Intact, Normal Color, Warm Assessment and Plan - Assessment and Plan (Free Text) Assessment: (1) A-fib Pt passed swallow eval. Will start pt on home dose of Toprol XL 50 mg qd (will d/c IV metoprolol) Continue cardizem. Continue anticoagulation with eliquis (2) Aortic valve vegetation Currently on meropenem and vanco ID following (3) Acute respiratory failure with hypoxia likely 2/2 B/L effusion Improved On HFNC sating at 100% (4) Pulmonary HTN Continue Revatio 20 mg BID (5) Acute decompensated heart failure ProBNP is improving. Continue current medication regimen Currently on spironolactone BID and lasixs 40 mg IVP qd Echo shows EF of 60-65% (6) Left pleura effusion CXR from yesterday shows improvement of effusion. Chest tube d/leeann yesterday Cont abx per ID Sputum grew pseudomonas (7) Encephalopathy Mental status waxes and wanes Currently on Lamictal Neurology is following (8) Hyperkalemia improved Continue to monitor (9) Seizure disorder Neuro following Currently on Lamictal Case will be discussed with attending, Dr. Castro <Varun Castro - Last Filed: 11/14/17 09:04> Objective - Vital Signs/Intake and Output Vital Signs (last 24 hours): Temp Pulse Resp BP Pulse Ox 97.6 F 83 20 123/61 100 11/14/17 07:48 11/14/17 07:48 11/14/17 08:06 11/14/17 07:48 11/14/17 07:48 Intake and Output: 11/14/17 11/14/17 06:59 18:59 Intake Total 1290 Output Total 700 Balance 590 - Medications Medications: Current Medications Acetaminophen (Tylenol 650mg/20.3ml Solution Ud) 650 mg PO Q6 PRN PRN Reason: Temperature Last Admin: 11/01/17 09:32 Dose: 650 mg Apixaban (Eliquis) 2.5 mg PO BID [facility] PRN Reason: Protocol Last Admin: 11/13/17 16:45 Dose: 2.5 mg Cholecalciferol (Vitamin D) 5,000 intlu PO DAILY [facility] Last Admin: 11/13/17 09:02 Dose: 5,000 intlu Collagenase (Santyl) 1 applic TOP DAILY [facility] Last Admin: 11/13/17 09:33 Dose: 1 appl Diltiazem HCl (Cardizem) 60 mg PO 0300,0900,1500,2100 [facility] Last Admin: 11/14/17 03:42 Dose: 60 mg Dimethicone (Proshield Plus Skin Protectant) 1 applic TOP Q8 [facility] Last Admin: 11/14/17 01:05 Dose: 1 applic Ferrous Gluconate (Fergon) 324 mg PO DAILY [facility] Last Admin: 11/13/17 08:57 Dose: 324 mg Furosemide (Lasix) 40 mg IVP DAILY [facility] Last Admin: 11/13/17 08:58 Dose: 40 mg Meropenem 500 mg/ Sodium (Chloride) 100 mls @ 100 mls/hr IVPB Q8 [facility] PRN Reason: Protocol Last Admin: 11/14/17 00:28 Dose: 100 mls/hr Metronidazole (Flagyl 500mg/100ml Ns) 100 mls @ 100 mls/hr IVPB Q8 [facility] PRN Reason: Protocol Last Admin: 11/14/17 00:27 Dose: 100 mls/hr Vancomycin HCl 1 gm/ Sodium (Chloride) 250 mls @ 166.667 mls/hr IVPB Q48H [facility] PRN Reason: Protocol Last Admin: 11/12/17 08:48 Dose: 166.667 mls/hr Lactobacillus Acidophilus (Bacid Acidophilus) 1 cap PO BID [facility] Last Admin: 11/13/17 16:46 Dose: 1 cap Lamotrigine (Lamictal) 50 mg PO Q12@0930,2130 [facility] Last Admin: 11/13/17 21:37 Dose: 50 mg Metoprolol Succinate (Toprol Xl) 50 mg PO DAILY [facility] Pantoprazole Sodium (Protonix Ec Tab) 40 mg PO DAILY [facility] Last Admin: 11/13/17 08:55 Dose: 40 mg Sildenafil Citrate (Revatio) 20 mg PO BID [facility] Last Admin: 11/13/17 16:45 Dose: 20 mg Spironolactone (Aldactone) 25 mg PO BID [facility] Last Admin: 11/13/17 16:45 Dose: 25 mg - Labs Labs: 11/14/17 05:27 11/14/17 05:27 PT 14.9 Seconds (9.8-13.1) H 10/29/17 04:20 INR 1.3 (0.9-1.2) H 10/29/17 04:20 APTT 34.4 Seconds (25.6-37.1) 10/26/17 12:30 Assessment and Plan (1) A-fib Status: Chronic (2) Acute on chronic diastolic (congestive) heart failure Status: Chronic (3) Acute respiratory failure with hypoxia Status: Acute (4) Altered mental status Status: Deleted (5) HTN (hypertension) Status: Chronic (6) Seizure disorder Status: Chronic (7) CANDELARIA (acute kidney injury) Status: Resolved (8) Encephalopathy Status: Acute (9) Hypothermia Status: Deleted (10) Pleural effusion, bilateral Status: Acute (11) Supratherapeutic international normalized ratio (INR) Status: Acute (12) Acute decompensated heart failure Status: Acute (13) Atrial fibrillation with RVR Status: Acute Attending/Attestation - Attestation I have personally seen and examined this patient.: Yes I have fully participated in the care of the patient.: Yes I have reviewed all pertinent clinical information, including history, physical exam and plan: Yes
[2017-11-14] MEDS: Cholecalciferol 1,000 INTLU TAB PO SCH (09:23)
[2017-11-14] MEDS: Pantoprazole 40 mg EC Tab PO SCH (09:24)
[2017-11-14] MEDS: Santyl Collagenase OINTMENT TOP SCH (09:24)
[2017-11-14] MEDS: Sildenafil 20 MG TAB PO SCH ×2 (09:24→17:08)
[2017-11-14] MEDS: Lactobacillus Acidophilus 500 MU Cap PO SCH ×2 (09:25→17:11)
[2017-11-14] MEDS: Metoprolol Succinate 50 mg XL Tab PO SCH (11:05)
[2017-11-15] MEDS: metroNIDAZOLE 500mg/100ml NS 100 ML IVPB SCH ×3 (00:17→16:07)
--- NOTE | 2017-11-15 00:21 | CP.PCM.PN ---
Subjective - Date & Time of Evaluation Date of Evaluation: 11/14/17 Time of Evaluation: 22:25 - Subjective Subjective: No seizures are reported. He is still having the NG Tube. He has Normal VS. He is awake, responsive, may answer simple questions. He has anemia, still his Platelet count is elevated at 499 K, but there is an improvement of his platelet count from 547 K to 499 K He is transferred from ICU to the Telemetry Unit Room 414-1 Objective - Vital Signs/Intake and Output Vital Signs (last 24 hours): Temp Pulse Resp BP Pulse Ox 98.1 F 80 20 115/63 100 11/15/17 00:10 11/15/17 00:10 11/15/17 00:10 11/15/17 00:10 11/15/17 00:10 Intake and Output: 11/14/17 11/15/17 18:59 06:59 Intake Total 1490 Output Total 1200 Balance 290 - Medications Medications: Current Medications Acetaminophen (Tylenol 650mg/20.3ml Solution Ud) 650 mg PO Q6 PRN PRN Reason: Temperature Last Admin: 11/01/17 09:32 Dose: 650 mg Apixaban (Eliquis) 2.5 mg PO BID [facility] PRN Reason: Protocol Last Admin: 11/14/17 17:07 Dose: 2.5 mg Cholecalciferol (Vitamin D) 5,000 intlu PO DAILY [facility] Last Admin: 11/14/17 09:23 Dose: 5,000 intlu Collagenase (Santyl) 1 applic TOP DAILY [facility] Last Admin: 11/14/17 09:24 Dose: 1 appl Diltiazem HCl (Cardizem) 60 mg PO 0300,0900,1500,2100 [facility] Last Admin: 11/14/17 21:00 Dose: 60 mg Dimethicone (Proshield Plus Skin Protectant) 1 applic TOP Q8 [facility] Last Admin: 11/14/17 17:08 Dose: 1 applic Ferrous Gluconate (Fergon) 324 mg PO DAILY [facility] Last Admin: 11/14/17 09:23 Dose: 324 mg Furosemide (Lasix) 40 mg IVP DAILY [facility] Last Admin: 11/14/17 09:21 Dose: 40 mg Meropenem 500 mg/ Sodium (Chloride) 100 mls @ 100 mls/hr IVPB Q8 [facility] PRN Reason: Protocol Last Admin: 11/14/17 17:12 Dose: 100 mls/hr Metronidazole (Flagyl 500mg/100ml Ns) 100 mls @ 100 mls/hr IVPB Q8 [facility] PRN Reason: Protocol Last Admin: 11/14/17 17:11 Dose: 100 mls/hr Vancomycin HCl 1 gm/ Sodium (Chloride) 250 mls @ 166.667 mls/hr IVPB Q48H [facility] PRN Reason: Protocol Last Admin: 11/14/17 09:16 Dose: 166.667 mls/hr Lactobacillus Acidophilus (Bacid Acidophilus) 1 cap PO BID [facility] Last Admin: 11/14/17 17:11 Dose: 1 cap Lamotrigine (Lamictal) 50 mg PO Q12@0930,2130 [facility] Last Admin: 11/14/17 20:59 Dose: 50 mg Metoprolol Succinate (Toprol Xl) 50 mg PO DAILY [facility] Last Admin: 11/14/17 11:05 Dose: 50 mg Pantoprazole Sodium (Protonix Ec Tab) 40 mg PO DAILY [facility] Last Admin: 11/14/17 09:24 Dose: 40 mg Sildenafil Citrate (Revatio) 20 mg PO BID [facility] Last Admin: 11/14/17 17:08 Dose: 20 mg Spironolactone (Aldactone) 25 mg PO BID [facility] Last Admin: 11/14/17 17:07 Dose: 25 mg - Labs Labs: 11/14/17 05:27 11/14/17 05:27 PT 14.9 Seconds (9.8-13.1) H 10/29/17 04:20 INR 1.3 (0.9-1.2) H 10/29/17 04:20 APTT 34.4 Seconds (25.6-37.1) 10/26/17 12:30 Assessment and Plan (1) CANDELARIA (acute kidney injury) Status: Resolved (2) Acute respiratory failure Status: Acute (3) Altered mental status Status: Deleted (4) Pleural effusion, bilateral Status: Acute (5) Pneumonia Status: Acute (6) Seizure disorder Status: Suspected (7) Encephalopathy Status: Acute
[2017-11-15] MEDS: Meropenem 500 MG in Sodium Chloride 0.9% 100 ML IVPB SCH ×3 (00:24→16:07)
[2017-11-15] MEDS: Proshield Plus GEL TOP SCH ×3 (00:27→16:10)
[2017-11-15 05:46] LABS: MEAN CELL VOLUME 93.6 fl (80.0-94.0); MEAN CORPUSCULAR HEMOGLOBIN 30.3 pg (27.0-31.0); MEAN CORPUSCULAR HGB CONC 32.4 g/dL (33.0-37.0); RBC 2.97 Mil/uL (4.40-5.90); RED CELL DISTRIBUTION WIDTH 21.6 % (11.5-14.5); WHITE BLOOD COUNT 7.9 K/uL (4.8-10.8)
[2017-11-15 06:18] LABS: ALB/GLOB RATIO 0.7 (1.0-2.1); ALBUMIN 2.7 g/dL (3.5-5.0); ALT/SGPT 23 U/L (21-72); AST/SGOT 36 U/L (17-59); BLOOD UREA NITROGEN 33 mg/dl (9-20); CALCIUM 8.6 mg/dL (8.4-10.2); GFR AFRICAN-AMERICAN > 60; GFR NON-AFRICAN AMERICAN > 60
--- NOTE | 2017-11-15 07:11 | CP.PCM.PN ---
<Yoon Garvin - Last Filed: 11/15/17 08:47> Subjective - Date & Time of Evaluation Date of Evaluation: 11/15/17 Time of Evaluation: 07:09 - Subjective Subjective: PGY2 progress note for cardiology, Dr. Castro Pt seen and examined at bedside. No acute event overnight. at bedside. Pt resting comfortably. Opening eyes to verbal stimuli. Currently on HFNC. NG tube in place with feedings at 70 cc ongoing. ROS unobtainable due to mental status. Objective - Vital Signs/Intake and Output Vital Signs (last 24 hours): Temp Pulse Resp BP Pulse Ox 98.3 F 91 H 17 125/70 100 11/15/17 05:00 11/15/17 05:00 11/15/17 06:03 11/15/17 05:00 11/15/17 05:00 Intake and Output: 11/15/17 11/15/17 06:59 18:59 Intake Total 1240 Output Total 900 Balance 340 - Medications Medications: Current Medications Acetaminophen (Tylenol 650mg/20.3ml Solution Ud) 650 mg PO Q6 PRN PRN Reason: Temperature Last Admin: 11/01/17 09:32 Dose: 650 mg Apixaban (Eliquis) 2.5 mg PO BID [facility] PRN Reason: Protocol Last Admin: 11/14/17 17:07 Dose: 2.5 mg Cholecalciferol (Vitamin D) 5,000 intlu PO DAILY [facility] Last Admin: 11/14/17 09:23 Dose: 5,000 intlu Collagenase (Santyl) 1 applic TOP DAILY [facility] Last Admin: 11/14/17 09:24 Dose: 1 appl Diltiazem HCl (Cardizem) 60 mg PO 0300,0900,1500,2100 [facility] Last Admin: 11/15/17 04:00 Dose: 60 mg Dimethicone (Proshield Plus Skin Protectant) 1 applic TOP Q8 [facility] Last Admin: 11/15/17 00:27 Dose: 1 applic Ferrous Gluconate (Fergon) 324 mg PO DAILY [facility] Last Admin: 11/14/17 09:23 Dose: 324 mg Furosemide (Lasix) 40 mg IVP DAILY [facility] Last Admin: 11/14/17 09:21 Dose: 40 mg Meropenem 500 mg/ Sodium (Chloride) 100 mls @ 100 mls/hr IVPB Q8 [facility] PRN Reason: Protocol Last Admin: 11/15/17 00:24 Dose: 100 mls/hr Metronidazole (Flagyl 500mg/100ml Ns) 100 mls @ 100 mls/hr IVPB Q8 [facility] PRN Reason: Protocol Last Admin: 11/15/17 00:17 Dose: 100 mls/hr Vancomycin HCl 1 gm/ Sodium (Chloride) 250 mls @ 166.667 mls/hr IVPB Q48H [facility] PRN Reason: Protocol Last Admin: 11/14/17 09:16 Dose: 166.667 mls/hr Lactobacillus Acidophilus (Bacid Acidophilus) 1 cap PO BID [facility] Last Admin: 11/14/17 17:11 Dose: 1 cap Lamotrigine (Lamictal) 50 mg PO Q12@0930,2130 [facility] Last Admin: 11/14/17 20:59 Dose: 50 mg Metoprolol Succinate (Toprol Xl) 50 mg PO DAILY [facility] Last Admin: 11/14/17 11:05 Dose: 50 mg Pantoprazole Sodium (Protonix Ec Tab) 40 mg PO DAILY [facility] Last Admin: 11/14/17 09:24 Dose: 40 mg Sildenafil Citrate (Revatio) 20 mg PO BID [facility] Last Admin: 11/14/17 17:08 Dose: 20 mg Spironolactone (Aldactone) 25 mg PO BID [facility] Last Admin: 11/14/17 17:07 Dose: 25 mg - Labs Labs: 11/15/17 05:00 11/15/17 05:00 PT 14.9 Seconds (9.8-13.1) H 10/29/17 04:20 INR 1.3 (0.9-1.2) H 10/29/17 04:20 APTT 34.4 Seconds (25.6-37.1) 10/26/17 12:30 - Constitutional Appears: Non-toxic, No Acute Distress - Head Exam Head Exam: ATRAUMATIC - ENT Exam ENT Exam: Mucous Membranes Moist - Respiratory Exam Respiratory Exam: Clear to Ausculation Bilateral. absent: Accessory Muscle Use , Rales, Rhonchi, Wheezes, Respiratory Distress - Cardiovascular Exam Cardiovascular Exam: +S1, +S2. absent: Gallop, Rubs, Murmur - GI/Abdominal Exam GI & Abdominal Exam: Soft, Normal Bowel Sounds. absent: Distended, Firm, Guarding, Rigid, Tenderness, Organomegaly - Extremities Exam Extremities Exam: absent: Pedal Edema, Tenderness - Neurological Exam Neurological Exam: Awake - Skin Skin Exam: Dry, Intact, Normal Color, Warm Assessment and Plan - Assessment and Plan (Free Text) Assessment: (1) A-fib Continue Toprol XL 50 mg qd (will d/c IV metoprolol) Continue cardizem. Continue anticoagulation with eliquis (2) Aortic valve vegetation Currently on meropenem and vanco ID following (3) Pulmonary HTN Continue Revatio 20 mg BID (4) Acute decompensated heart failure ProBNP is improving. Continue current medication regimen Currently on spironolactone BID and lasixs 40 mg IVP qd Echo shows EF of 60-65% (5) Left pleura effusion Improved per CXR Low procal value noted Abx per ID Sputum grew pseudomonas (6) Encephalopathy Mental status waxes and wanes Currently on Lamictal Neurology is following (7) Seizure disorder Neuro following Currently on Lamictal Case will be discussed with attending, Dr. Castro <Varun Castro - Last Filed: 11/17/17 20:11> Objective - Vital Signs/Intake and Output Vital Signs (last 24 hours): Temp Pulse Resp BP Pulse Ox 98.5 F 91 H 16 144/65 100 11/17/17 17:00 11/17/17 17:00 11/17/17 17:00 11/17/17 17:00 11/17/17 17:00 - Medications Medications: Current Medications Acetaminophen (Tylenol 650mg/20.3ml Solution Ud) 650 mg PO Q6 PRN PRN Reason: Temperature Last Admin: 11/01/17 09:32 Dose: 650 mg Apixaban (Eliquis) 2.5 mg PO BID [facility] PRN Reason: Protocol Last Admin: 11/17/17 16:16 Dose: 2.5 mg Cholecalciferol (Vitamin D) 5,000 intlu PO DAILY [facility] Last Admin: 11/17/17 08:47 Dose: 5,000 intlu Collagenase (Santyl) 1 applic TOP DAILY [facility] Last Admin: 11/17/17 08:49 Dose: 1 appl Diltiazem HCl (Cardizem) 60 mg PO 0300,0900,1500,2100 [facility] Last Admin: 11/17/17 16:15 Dose: 60 mg Dimethicone (Proshield Plus Skin Protectant) 1 applic TOP Q8 [facility] Last Admin: 11/17/17 16:16 Dose: Not Given Ferrous Gluconate (Fergon) 324 mg PO DAILY [facility] Last Admin: 11/17/17 08:49 Dose: 324 mg Furosemide (Lasix) 40 mg IVP DAILY [facility] Last Admin: 11/17/17 08:49 Dose: 40 mg Metronidazole (Flagyl 500mg/100ml Ns) 100 mls @ 100 mls/hr IVPB Q8 [facility] PRN Reason: Protocol Last Admin: 11/17/17 16:19 Dose: 100 mls/hr Vancomycin HCl 1 gm/ Sodium (Chloride) 250 mls @ 166.667 mls/hr IVPB Q48H [facility] PRN Reason: Protocol Lactobacillus Acidophilus (Bacid Acidophilus) 1 cap PO BID [facility] Last Admin: 11/17/17 16:15 Dose: 1 cap Lamotrigine (Lamictal) 50 mg PO Q12@0930,2130 [facility] Last Admin: 11/17/17 08:47 Dose: 50 mg Metoprolol Succinate (Toprol Xl) 50 mg PO DAILY [facility] Last Admin: 11/17/17 08:48 Dose: 50 mg Pantoprazole Sodium (Protonix Ec Tab) 40 mg PO DAILY [facility] Last Admin: 11/17/17 08:47 Dose: 40 mg Spironolactone (Aldactone) 25 mg PO BID [facility] Last Admin: 11/17/17 16:15 Dose: 25 mg Vancomycin HCl (Vancocin (Oral/Rectal Use)) 250 mg PO QID [facility] PRN Reason: Protocol Last Admin: 11/17/17 16:16 Dose: 250 mg - Labs Labs: 11/17/17 06:30 11/17/17 06:30 PT 14.9 Seconds (9.8-13.1) H 10/29/17 04:20 INR 1.3 (0.9-1.2) H 10/29/17 04:20 APTT 34.4 Seconds (25.6-37.1) 10/26/17 12:30 Assessment and Plan (1) Acute on chronic diastolic (congestive) heart failure Status: Chronic (2) A-fib Status: Chronic (3) Acute respiratory failure with hypoxia Status: Acute (4) Altered mental status Status: Deleted (5) HTN (hypertension) Status: Chronic (6) Seizure disorder Status: Chronic (7) CANDELARIA (acute kidney injury) Status: Resolved (8) Encephalopathy Status: Acute (9) Hypothermia Status: Deleted (10) Pleural effusion, bilateral Status: Acute (11) Supratherapeutic international normalized ratio (INR) Status: Acute (12) Acute decompensated heart failure Status: Acute (13) Atrial fibrillation with RVR Status: Acute Attending/Attestation - Attestation I have personally seen and examined this patient.: Yes I have fully participated in the care of the patient.: Yes I have reviewed all pertinent clinical information, including history, physical exam and plan: Yes
[2017-11-15] MEDS: Metoprolol Succinate 50 mg XL Tab PO SCH (09:12)
[2017-11-15] MEDS: Sildenafil 20 MG TAB PO SCH ×2 (09:16→16:09)
[2017-11-15] MEDS: Pantoprazole 40 mg EC Tab PO SCH (09:16)
[2017-11-15] MEDS: Cholecalciferol 1,000 INTLU TAB PO SCH (09:16)
[2017-11-15] MEDS: Lactobacillus Acidophilus 500 MU Cap PO SCH ×2 (09:18→16:07)
[2017-11-15] MEDS: Santyl Collagenase OINTMENT TOP SCH (11:00)
--- NOTE | 2017-11-15 13:11 | CP.PCM.PN ---
Subjective - Date & Time of Evaluation Date of Evaluation: 11/15/17 Time of Evaluation: 09:00 - Subjective Subjective: Pt resting comfortably. Opening eyes to verbal stimuli. Currently on HFNC. NG tube in place with feedings at 70 cc ongoing. ROS unobtainable due to mental status. Objective - Vital Signs/Intake and Output Vital Signs (last 24 hours): Temp Pulse Resp BP Pulse Ox 98.1 F 82 18 113/71 100 11/15/17 12:11 11/15/17 12:11 11/15/17 12:11 11/15/17 12:11 11/15/17 12:11 Intake and Output: 11/15/17 11/15/17 06:59 18:59 Intake Total 1240 Output Total 900 Balance 340 - Medications Medications: Current Medications Acetaminophen (Tylenol 650mg/20.3ml Solution Ud) 650 mg PO Q6 PRN PRN Reason: Temperature Last Admin: 11/01/17 09:32 Dose: 650 mg Apixaban (Eliquis) 2.5 mg PO BID [facility] PRN Reason: Protocol Last Admin: 11/15/17 09:12 Dose: 2.5 mg Cholecalciferol (Vitamin D) 5,000 intlu PO DAILY [facility] Last Admin: 11/15/17 09:16 Dose: 5,000 intlu Collagenase (Santyl) 1 applic TOP DAILY [facility] Last Admin: 11/14/17 09:24 Dose: 1 appl Diltiazem HCl (Cardizem) 60 mg PO 0300,0900,1500,2100 [facility] Last Admin: 11/15/17 09:12 Dose: 60 mg Dimethicone (Proshield Plus Skin Protectant) 1 applic TOP Q8 [facility] Last Admin: 11/15/17 09:15 Dose: 1 applic Ferrous Gluconate (Fergon) 324 mg PO DAILY [facility] Last Admin: 11/15/17 09:13 Dose: 324 mg Furosemide (Lasix) 40 mg IVP DAILY [facility] Last Admin: 11/15/17 09:14 Dose: 40 mg Meropenem 500 mg/ Sodium (Chloride) 100 mls @ 100 mls/hr IVPB Q8 [facility] PRN Reason: Protocol Last Admin: 11/15/17 09:15 Dose: 100 mls/hr Metronidazole (Flagyl 500mg/100ml Ns) 100 mls @ 100 mls/hr IVPB Q8 [facility] PRN Reason: Protocol Last Admin: 11/15/17 09:14 Dose: 100 mls/hr Vancomycin HCl 1 gm/ Sodium (Chloride) 250 mls @ 166.667 mls/hr IVPB Q48H [facility] PRN Reason: Protocol Last Admin: 11/14/17 09:16 Dose: 166.667 mls/hr Lactobacillus Acidophilus (Bacid Acidophilus) 1 cap PO BID [facility] Last Admin: 11/15/17 09:18 Dose: 1 cap Lamotrigine (Lamictal) 50 mg PO Q12@0930,2130 [facility] Last Admin: 11/14/17 20:59 Dose: 50 mg Metoprolol Succinate (Toprol Xl) 50 mg PO DAILY [facility] Last Admin: 11/15/17 09:12 Dose: 50 mg Pantoprazole Sodium (Protonix Ec Tab) 40 mg PO DAILY [facility] Last Admin: 11/15/17 09:16 Dose: 40 mg Sildenafil Citrate (Revatio) 20 mg PO BID [facility] Last Admin: 11/15/17 09:16 Dose: 20 mg Spironolactone (Aldactone) 25 mg PO BID [facility] Last Admin: 11/15/17 09:13 Dose: 25 mg - Labs Labs: 11/15/17 05:00 11/15/17 05:00 PT 14.9 Seconds (9.8-13.1) H 10/29/17 04:20 INR 1.3 (0.9-1.2) H 10/29/17 04:20 APTT 34.4 Seconds (25.6-37.1) 10/26/17 12:30 - Constitutional Appears: Non-toxic, Chronically Ill - Head Exam Head Exam: NORMOCEPHALIC - Eye Exam Eye Exam: PERRL - ENT Exam ENT Exam: Mucous Membranes Dry - Neck Exam Neck Exam: absent: Lymphadenopathy - Respiratory Exam Respiratory Exam: Decreased Breath Sounds - Cardiovascular Exam Cardiovascular Exam: REGULAR RHYTHM - GI/Abdominal Exam GI & Abdominal Exam: Distended, Soft - Rectal Exam Rectal Exam: Deferred - Exam Exam: NORMAL INSPECTION - Extremities Exam Extremities Exam: absent: Pedal Edema - Back Exam Back Exam: absent: CVA tenderness (L), CVA tenderness (R) - Neurological Exam Neurological Exam: Altered Assessment and Plan (1) CANDELARIA (acute kidney injury) Status: Resolved (2) Acute respiratory failure Status: Acute (3) Altered mental status Status: Deleted (4) Diastolic CHF, acute on chronic Status: Acute (5) Pleural effusion, bilateral Status: Acute (6) Pneumonia Status: Acute (7) Aortic valve vegetation Status: Acute - Assessment and Plan (Free Text) Assessment: iv rx renewed cont merrem for 3 weeks Vanco for 6 weeks total poor prognosis
--- NOTE | 2017-11-15 16:05 | CP.PCM.PN ---
Subjective - Date & Time of Evaluation Date of Evaluation: 11/15/17 Time of Evaluation: 14:00 - Subjective Subjective: awake , smiling , talking with me and also with at bedside Objective - Vital Signs/Intake and Output Vital Signs (last 24 hours): Temp Pulse Resp BP Pulse Ox 97.8 F 97 H 18 118/70 100 11/15/17 15:53 11/15/17 15:53 11/15/17 15:53 11/15/17 15:53 11/15/17 15:53 Intake and Output: 11/15/17 11/15/17 06:59 18:59 Intake Total 1240 Output Total 900 Balance 340 - Medications Medications: Current Medications Acetaminophen (Tylenol 650mg/20.3ml Solution Ud) 650 mg PO Q6 PRN PRN Reason: Temperature Last Admin: 11/01/17 09:32 Dose: 650 mg Apixaban (Eliquis) 2.5 mg PO BID [facility] PRN Reason: Protocol Last Admin: 11/15/17 09:12 Dose: 2.5 mg Cholecalciferol (Vitamin D) 5,000 intlu PO DAILY [facility] Last Admin: 11/15/17 09:16 Dose: 5,000 intlu Collagenase (Santyl) 1 applic TOP DAILY [facility] Last Admin: 11/14/17 09:24 Dose: 1 appl Diltiazem HCl (Cardizem) 60 mg PO 0300,0900,1500,2100 [facility] Last Admin: 11/15/17 09:12 Dose: 60 mg Dimethicone (Proshield Plus Skin Protectant) 1 applic TOP Q8 [facility] Last Admin: 11/15/17 09:15 Dose: 1 applic Ferrous Gluconate (Fergon) 324 mg PO DAILY [facility] Last Admin: 11/15/17 09:13 Dose: 324 mg Furosemide (Lasix) 40 mg IVP DAILY [facility] Last Admin: 11/15/17 09:14 Dose: 40 mg Meropenem 500 mg/ Sodium (Chloride) 100 mls @ 100 mls/hr IVPB Q8 [facility] PRN Reason: Protocol Last Admin: 11/15/17 09:15 Dose: 100 mls/hr Metronidazole (Flagyl 500mg/100ml Ns) 100 mls @ 100 mls/hr IVPB Q8 [facility] PRN Reason: Protocol Last Admin: 11/15/17 09:14 Dose: 100 mls/hr Vancomycin HCl 1 gm/ Sodium (Chloride) 250 mls @ 166.667 mls/hr IVPB Q48H [facility] PRN Reason: Protocol Last Admin: 11/14/17 09:16 Dose: 166.667 mls/hr Lactobacillus Acidophilus (Bacid Acidophilus) 1 cap PO BID [facility] Last Admin: 11/15/17 09:18 Dose: 1 cap Lamotrigine (Lamictal) 50 mg PO Q12@0930,2130 [facility] Last Admin: 11/15/17 13:10 Dose: 50 mg Metoprolol Succinate (Toprol Xl) 50 mg PO DAILY [facility] Last Admin: 11/15/17 09:12 Dose: 50 mg Pantoprazole Sodium (Protonix Ec Tab) 40 mg PO DAILY [facility] Last Admin: 11/15/17 09:16 Dose: 40 mg Sildenafil Citrate (Revatio) 20 mg PO BID [facility] Last Admin: 11/15/17 09:16 Dose: 20 mg Spironolactone (Aldactone) 25 mg PO BID [facility] Last Admin: 11/15/17 09:13 Dose: 25 mg - Labs Labs: 11/15/17 05:00 11/15/17 05:00 PT 14.9 Seconds (9.8-13.1) H 10/29/17 04:20 INR 1.3 (0.9-1.2) H 10/29/17 04:20 APTT 34.4 Seconds (25.6-37.1) 10/26/17 12:30 - Constitutional Appears: Chronically Ill - Head Exam Head Exam: NORMAL INSPECTION - Eye Exam Eye Exam: PERRL - ENT Exam Additional comments: scab nose bridge - Neck Exam Neck Exam: Normal Inspection - Respiratory Exam Respiratory Exam: Decreased Breath Sounds (at bases) - Cardiovascular Exam Cardiovascular Exam: Irregular Rhythm - GI/Abdominal Exam GI & Abdominal Exam: Soft, Normal Bowel Sounds - Back Exam Additional comments: 3 sites in coccyx with dry dressing in place - Neurological Exam Neurological Exam: Alert, CN II-XII Intact Additional comments: generalized weakness , no focal motor/sensory deficit - Skin Skin Exam: Warm Assessment and Plan (1) Acute respiratory failure with hypoxia Status: Acute (2) Encephalopathy Status: Acute (3) Pleural effusion, bilateral Status: Resolved (4) Diastolic CHF, acute on chronic Status: Acute (5) Hx of seizure disorder Status: Chronic (6) A-fib Status: Chronic (7) CANDELARIA (acute kidney injury) Status: Resolved (8) Anemia Status: Chronic (9) Aortic valve vegetation Status: Acute (10) SUSAN (obstructive sleep apnea) Status: Chronic (11) Pulmonary hypertension Status: Chronic - Assessment and Plan (Free Text) Plan: on high flow O2 , BIPAP at night , continue Lasix , Spirolactone , Metropolol , Cardizem , Eliquis , Lamictal , Vanco , Merren , Sidenafil , Patient able to seat at the edge of bed , continue PT
[2017-11-16] MEDS: metroNIDAZOLE 500mg/100ml NS 100 ML IVPB SCH ×3 (01:11→16:19)
[2017-11-16] MEDS: Meropenem 500 MG in Sodium Chloride 0.9% 100 ML IVPB SCH ×3 (01:12→16:20)
[2017-11-16] MEDS: Proshield Plus GEL TOP SCH ×3 (01:19→16:18)
--- NOTE | 2017-11-16 02:03 | CP.PCM.PN ---
Subjective - Date & Time of Evaluation Date of Evaluation: 11/15/17 Time of Evaluation: 22:00 - Subjective Subjective: Limited level of alertness and limited verbal response, however he is much better as compared to his previous non responsiveness. He is less lethargic and mostly awake and responsive. No seizures are reported. Labs are significant for anemia and High BUN and normal creatinine. He is on Lamictal 50 mg BID and we are trying to increase it to a therapeutic level, but his is not allowing. It is believed that his recent status of lethargy for 24 hours was due to a seizure exacerbation. Objective - Vital Signs/Intake and Output Vital Signs (last 24 hours): Temp Pulse Resp BP Pulse Ox 98 F 74 20 121/72 100 11/16/17 00:15 11/16/17 00:15 11/16/17 00:15 11/16/17 00:15 11/16/17 00:15 Intake and Output: 11/15/17 11/16/17 18:59 06:59 Intake Total 1640 Output Total 1700 Balance -60 - Medications Medications: Current Medications Acetaminophen (Tylenol 650mg/20.3ml Solution Ud) 650 mg PO Q6 PRN PRN Reason: Temperature Last Admin: 11/01/17 09:32 Dose: 650 mg Apixaban (Eliquis) 2.5 mg PO BID [facility] PRN Reason: Protocol Last Admin: 11/15/17 16:08 Dose: 2.5 mg Cholecalciferol (Vitamin D) 5,000 intlu PO DAILY [facility] Last Admin: 11/15/17 09:16 Dose: 5,000 intlu Collagenase (Santyl) 1 applic TOP DAILY [facility] Last Admin: 11/15/17 11:00 Dose: 1 appl Diltiazem HCl (Cardizem) 60 mg PO 0300,0900,1500,2100 [facility] Last Admin: 11/15/17 22:16 Dose: 60 mg Dimethicone (Proshield Plus Skin Protectant) 1 applic TOP Q8 [facility] Last Admin: 11/16/17 01:19 Dose: 1 applic Ferrous Gluconate (Fergon) 324 mg PO DAILY [facility] Last Admin: 11/15/17 09:13 Dose: 324 mg Furosemide (Lasix) 40 mg IVP DAILY [facility] Last Admin: 11/15/17 09:14 Dose: 40 mg Meropenem 500 mg/ Sodium (Chloride) 100 mls @ 100 mls/hr IVPB Q8 [facility] PRN Reason: Protocol Last Admin: 11/16/17 01:12 Dose: 100 mls/hr Metronidazole (Flagyl 500mg/100ml Ns) 100 mls @ 100 mls/hr IVPB Q8 [facility] PRN Reason: Protocol Last Admin: 11/16/17 01:11 Dose: 100 mls/hr Vancomycin HCl 1 gm/ Sodium (Chloride) 250 mls @ 166.667 mls/hr IVPB Q48H [facility] PRN Reason: Protocol Last Admin: 11/14/17 09:16 Dose: 166.667 mls/hr Lactobacillus Acidophilus (Bacid Acidophilus) 1 cap PO BID [facility] Last Admin: 11/15/17 16:07 Dose: 1 cap Lamotrigine (Lamictal) 50 mg PO Q12@0930,2130 [facility] Last Admin: 11/15/17 22:15 Dose: 50 mg Metoprolol Succinate (Toprol Xl) 50 mg PO DAILY [facility] Last Admin: 11/15/17 09:12 Dose: 50 mg Pantoprazole Sodium (Protonix Ec Tab) 40 mg PO DAILY [facility] Last Admin: 11/15/17 09:16 Dose: 40 mg Sildenafil Citrate (Revatio) 20 mg PO BID [facility] Last Admin: 11/15/17 16:09 Dose: 20 mg Spironolactone (Aldactone) 25 mg PO BID [facility] Last Admin: 11/15/17 16:09 Dose: 25 mg - Labs Labs: 11/15/17 05:00 11/15/17 05:00 PT 14.9 Seconds (9.8-13.1) H 10/29/17 04:20 INR 1.3 (0.9-1.2) H 10/29/17 04:20 APTT 34.4 Seconds (25.6-37.1) 10/26/17 12:30 Assessment and Plan (1) CANDELARIA (acute kidney injury) Status: Resolved (2) Acute respiratory failure Status: Acute (3) Altered mental status Status: Deleted (4) Pleural effusion, bilateral Status: Acute (5) Pneumonia Status: Acute (6) Seizure disorder Status: Suspected (7) Encephalopathy Status: Acute
[2017-11-16 07:51] LABS: HEMOGLOBIN 9.9 g/dL (12.0-18.0); MEAN CELL VOLUME 92.4 fl (80.0-94.0); MEAN CORPUSCULAR HEMOGLOBIN 31.1 pg (27.0-31.0); MEAN CORPUSCULAR HGB CONC 33.6 g/dL (33.0-37.0); RBC 3.19 Mil/uL (4.40-5.90); RED CELL DISTRIBUTION WIDTH 21.2 % (11.5-14.5); WHITE BLOOD COUNT 7.5 K/uL (4.8-10.8)
[2017-11-16 07:59] LABS: ALB/GLOB RATIO 0.7 (1.0-2.1); ALBUMIN 2.8 g/dL (3.5-5.0); ALT/SGPT 35 U/L (21-72); AST/SGOT 32 U/L (17-59); BLOOD UREA NITROGEN 30 mg/dl (9-20); CALCIUM 8.7 mg/dL (8.4-10.2); GFR AFRICAN-AMERICAN > 60; GFR NON-AFRICAN AMERICAN > 60
[2017-11-16] MEDS: Metoprolol Succinate 50 mg XL Tab PO SCH (10:11)
[2017-11-16] MEDS: Lactobacillus Acidophilus 500 MU Cap PO SCH ×2 (10:11→16:22)
[2017-11-16] MEDS: Cholecalciferol 1,000 INTLU TAB PO SCH (10:12)
[2017-11-16] MEDS: Sildenafil 20 MG TAB PO SCH (10:12)
[2017-11-16] MEDS: Pantoprazole 40 mg EC Tab PO SCH (10:12)
[2017-11-16] MEDS: Santyl Collagenase OINTMENT TOP SCH (10:12)
--- NOTE | 2017-11-16 15:06 | CP.PCM.PN ---
Subjective - Date & Time of Evaluation Date of Evaluation: 11/16/17 Time of Evaluation: 12:00 - Subjective Subjective: alert , smiling , able to talk with me and with his at bedside Objective - Vital Signs/Intake and Output Vital Signs (last 24 hours): Temp Pulse Resp BP Pulse Ox 97.6 F 91 H 21 107/65 100 11/16/17 08:00 11/16/17 10:11 11/16/17 12:03 11/16/17 11:56 11/16/17 08:00 Intake and Output: 11/16/17 11/16/17 06:59 18:59 Intake Total 1440 Balance 1440 - Medications Medications: Current Medications Acetaminophen (Tylenol 650mg/20.3ml Solution Ud) 650 mg PO Q6 PRN PRN Reason: Temperature Last Admin: 11/01/17 09:32 Dose: 650 mg Apixaban (Eliquis) 2.5 mg PO BID [facility] PRN Reason: Protocol Last Admin: 11/16/17 10:11 Dose: 2.5 mg Cholecalciferol (Vitamin D) 5,000 intlu PO DAILY [facility] Last Admin: 11/16/17 10:12 Dose: 5,000 intlu Collagenase (Santyl) 1 applic TOP DAILY [facility] Last Admin: 11/16/17 10:12 Dose: 1 appl Diltiazem HCl (Cardizem) 60 mg PO 0300,0900,1500,2100 [facility] Last Admin: 11/16/17 10:11 Dose: 60 mg Dimethicone (Proshield Plus Skin Protectant) 1 applic TOP Q8 [facility] Last Admin: 11/16/17 01:19 Dose: 1 applic Ferrous Gluconate (Fergon) 324 mg PO DAILY [facility] Last Admin: 11/16/17 10:12 Dose: 324 mg Furosemide (Lasix) 40 mg IVP DAILY [facility] Last Admin: 11/16/17 11:56 Dose: 40 mg Meropenem 500 mg/ Sodium (Chloride) 100 mls @ 100 mls/hr IVPB Q8 [facility] PRN Reason: Protocol Last Admin: 11/16/17 10:14 Dose: 100 mls/hr Metronidazole (Flagyl 500mg/100ml Ns) 100 mls @ 100 mls/hr IVPB Q8 [facility] PRN Reason: Protocol Last Admin: 11/16/17 10:34 Dose: 100 mls/hr Vancomycin HCl 1 gm/ Sodium (Chloride) 250 mls @ 166.667 mls/hr IVPB Q48H [facility] PRN Reason: Protocol Last Admin: 11/16/17 10:13 Dose: 166.667 mls/hr Lactobacillus Acidophilus (Bacid Acidophilus) 1 cap PO BID [facility] Last Admin: 11/16/17 10:11 Dose: 1 cap Lamotrigine (Lamictal) 50 mg PO Q12@0930,2130 [facility] Last Admin: 11/16/17 10:12 Dose: 50 mg Metoprolol Succinate (Toprol Xl) 50 mg PO DAILY [facility] Last Admin: 11/16/17 10:11 Dose: 50 mg Pantoprazole Sodium (Protonix Ec Tab) 40 mg PO DAILY [facility] Last Admin: 11/16/17 10:12 Dose: 40 mg Spironolactone (Aldactone) 25 mg PO BID [facility] Last Admin: 11/16/17 10:12 Dose: 25 mg - Labs Labs: 11/16/17 06:30 11/16/17 06:30 PT 14.9 Seconds (9.8-13.1) H 10/29/17 04:20 INR 1.3 (0.9-1.2) H 10/29/17 04:20 APTT 34.4 Seconds (25.6-37.1) 10/26/17 12:30 - Constitutional Appears: Chronically Ill - Head Exam Head Exam: NORMAL INSPECTION - Eye Exam Eye Exam: PERRL - ENT Exam Additional comments: NG tube - Neck Exam Neck Exam: Normal Inspection - Respiratory Exam Respiratory Exam: Decreased Breath Sounds (at bases) - Cardiovascular Exam Cardiovascular Exam: Irregular Rhythm - GI/Abdominal Exam GI & Abdominal Exam: Soft, Normal Bowel Sounds - Extremities Exam Extremities Exam: Normal Inspection - Back Exam Additional comments: 3 sites in coccyx dry - Neurological Exam Neurological Exam: Awake Additional comments: able to talk ,answer questions , generalized weakness - Psychiatric Exam Psychiatric exam: Normal Affect - Skin Skin Exam: Warm Assessment and Plan (1) Acute respiratory failure with hypoxia Status: Acute (2) Encephalopathy Status: Acute (3) Pleural effusion, bilateral Status: Resolved (4) Diastolic CHF, acute on chronic Status: Acute (5) Hx of seizure disorder Status: Chronic (6) A-fib Status: Chronic (7) CANDELARIA (acute kidney injury) Status: Resolved (8) Anemia Status: Chronic (9) Aortic valve vegetation Status: Acute (10) SUSAN (obstructive sleep apnea) Status: Chronic (11) Pulmonary hypertension Status: Chronic (12) Clostridium difficile infection Status: Acute - Assessment and Plan (Free Text) Plan: Continue Merren, Vanco , Flagyl, Cardizem , Metropolol , Lasix , Spirolactone , Eliquis , Lamictal and rest of treatment , increase PT
--- NOTE | 2017-11-16 18:06 | PCM.EEG ---
Electroencephalogram Report - Electroencephalogram Report Procedure Date: 11/12/17 Interpretation: Indication: Concern for Seizures. Medications were reviewed. Technical: This is a digitally recorded electroencephalogram. The international 10-20 electrode placement system is used for scalp electrode placement. Eighteen channels of scalp EEG are recorded One channel was used for EOG. Another channel was used for for ECG. The data are stored digitally and reviewed in reformatted montages for optimal display. Background: 9 to 10 hertz alpha activity was seen. Maximal over the posterior head region. These activities are symmetric on both sides. Focal abnormality: Periodic lateralized discharge was seen. Mainly over the Left temporal area. Impression: This EEG is abnormal. Epileptiform discharge was seen. This can represent a potential seizure focus. Clinical correlation is needed.
[2017-11-16] MEDS ORDERED: Chlorhexidine Gluconate 1 APPL/PKT TP ONE (19:46)
--- NOTE | 2017-11-16 22:11 | RAD ---
EXAM: XR Chest, 1 View CLINICAL HISTORY: 77 years old, male; Device placement; Ng tube; Additional info: For ngt placement TECHNIQUE: Frontal view of the chest. COMPARISON: CR - CHEST ONE VIEW 2017-09-26 08:43 FINDINGS: Limitations: Radiographic technique - mild. Lungs: Mild underinflation. Patchy opacities lung bases. Pleural space: Small bilateral pleural effusions. No pneumothorax. Heart: Mild cardiomegaly. Mediastinum: Unremarkable. Bones/joints: No acute fracture. Tubes, lines and devices: Pacemaker overlies LEFT hemithorax. Leads overlying chest. NG tube courses below diaphragm, tip projected over body of stomach. PICC with tip projected over right atrium. IMPRESSION: 1. Acceptable position of NG tube. 2. Bilateral pleural effusions with bibasilar atelectasis and/or pneumonia. 3. Incidental/non-acute findings are described above.
[2017-11-17] MEDS: Meropenem 500 MG in Sodium Chloride 0.9% 100 ML IVPB SCH ×2 (00:41→08:39)
[2017-11-17] MEDS: metroNIDAZOLE 500mg/100ml NS 100 ML IVPB SCH ×3 (00:43→16:19)
[2017-11-17] MEDS: Proshield Plus GEL TOP SCH ×3 (00:49→16:16)
[2017-11-17 07:19] LABS: HEMOGLOBIN 10.4 g/dL (12.0-18.0); MEAN CELL VOLUME 92.9 fl (80.0-94.0); MEAN CORPUSCULAR HEMOGLOBIN 30.9 pg (27.0-31.0); MEAN CORPUSCULAR HGB CONC 33.3 g/dL (33.0-37.0); RBC 3.35 Mil/uL (4.40-5.90); RED CELL DISTRIBUTION WIDTH 20.9 % (11.5-14.5); WHITE BLOOD COUNT 8.2 K/uL (4.8-10.8)
[2017-11-17 07:40] LABS: BLOOD UREA NITROGEN 32 mg/dl (9-20); GFR AFRICAN-AMERICAN > 60; GFR NON-AFRICAN AMERICAN > 60
[2017-11-17 07:41] LABS: ALB/GLOB RATIO 0.7 (1.0-2.1); ALBUMIN 2.9 g/dL (3.5-5.0); ALT/SGPT 31 U/L (21-72); AST/SGOT 42 U/L (17-59); CALCIUM 8.9 mg/dL (8.4-10.2)
[2017-11-17] MEDS: Cholecalciferol 1,000 INTLU TAB PO SCH (08:47)
[2017-11-17] MEDS: Pantoprazole 40 mg EC Tab PO SCH (08:47)
[2017-11-17] MEDS: Metoprolol Succinate 50 mg XL Tab PO SCH (08:48)
[2017-11-17] MEDS: Santyl Collagenase OINTMENT TOP SCH (08:49)
[2017-11-17] MEDS: Vancomycin 500 mg (Oral/Rectal USE) PO SCH ×4 (08:49→22:43)
[2017-11-17] MEDS: Lactobacillus Acidophilus 500 MU Cap PO SCH ×2 (08:58→16:15)
--- NOTE | 2017-11-17 14:35 | CP.PCM.PN ---
Subjective - Date & Time of Evaluation Date of Evaluation: 11/17/17 Time of Evaluation: 10:00 - Subjective Subjective: events noted concern for c diff merrem d/c'd started 10/31 for pseudomonas pneumonia ( 14 days rx ) Objective - Vital Signs/Intake and Output Vital Signs (last 24 hours): Temp Pulse Resp BP Pulse Ox 97.7 F 80 20 117/76 100 11/17/17 12:26 11/17/17 12:26 11/17/17 12:26 11/17/17 12:26 11/17/17 12:26 Intake and Output: 11/17/17 11/17/17 06:59 18:59 Intake Total 1020 Output Total 900 Balance 120 - Medications Medications: Current Medications Acetaminophen (Tylenol 650mg/20.3ml Solution Ud) 650 mg PO Q6 PRN PRN Reason: Temperature Last Admin: 11/01/17 09:32 Dose: 650 mg Apixaban (Eliquis) 2.5 mg PO BID [facility] PRN Reason: Protocol Last Admin: 11/17/17 08:48 Dose: 2.5 mg Cholecalciferol (Vitamin D) 5,000 intlu PO DAILY [facility] Last Admin: 11/17/17 08:47 Dose: 5,000 intlu Collagenase (Santyl) 1 applic TOP DAILY [facility] Last Admin: 11/17/17 08:49 Dose: 1 appl Diltiazem HCl (Cardizem) 60 mg PO 0300,0900,1500,2100 [facility] Last Admin: 11/17/17 08:47 Dose: 60 mg Dimethicone (Proshield Plus Skin Protectant) 1 applic TOP Q8 [facility] Last Admin: 11/17/17 08:49 Dose: 1 applic Ferrous Gluconate (Fergon) 324 mg PO DAILY [facility] Last Admin: 11/17/17 08:49 Dose: 324 mg Furosemide (Lasix) 40 mg IVP DAILY [facility] Last Admin: 11/17/17 08:49 Dose: 40 mg Metronidazole (Flagyl 500mg/100ml Ns) 100 mls @ 100 mls/hr IVPB Q8 [facility] PRN Reason: Protocol Last Admin: 11/17/17 08:41 Dose: 100 mls/hr Vancomycin HCl 1 gm/ Sodium (Chloride) 250 mls @ 166.667 mls/hr IVPB Q48H [facility] PRN Reason: Protocol Last Admin: 11/16/17 10:13 Dose: 166.667 mls/hr Vancomycin HCl 1,000 mg/ (Sodium Chloride) 250 mls @ 250 mls/hr IVPB Q48H [facility] PRN Reason: Protocol Lactobacillus Acidophilus (Bacid Acidophilus) 1 cap PO BID [facility] Last Admin: 11/17/17 08:58 Dose: 1 cap Lamotrigine (Lamictal) 50 mg PO Q12@0930,2130 [facility] Last Admin: 11/17/17 08:47 Dose: 50 mg Metoprolol Succinate (Toprol Xl) 50 mg PO DAILY [facility] Last Admin: 11/17/17 08:48 Dose: 50 mg Pantoprazole Sodium (Protonix Ec Tab) 40 mg PO DAILY [facility] Last Admin: 11/17/17 08:47 Dose: 40 mg Spironolactone (Aldactone) 25 mg PO BID [facility] Last Admin: 11/17/17 08:48 Dose: 25 mg Vancomycin HCl (Vancocin (Oral/Rectal Use)) 250 mg PO QID [facility] PRN Reason: Protocol Last Admin: 11/17/17 13:11 Dose: 250 mg - Labs Labs: 11/17/17 06:30 11/17/17 06:30 PT 14.9 Seconds (9.8-13.1) H 10/29/17 04:20 INR 1.3 (0.9-1.2) H 10/29/17 04:20 APTT 34.4 Seconds (25.6-37.1) 10/26/17 12:30 - Constitutional Appears: Non-toxic - Head Exam Head Exam: NORMOCEPHALIC - Eye Exam Eye Exam: PERRL - ENT Exam ENT Exam: Mucous Membranes Dry - Neck Exam Neck Exam: absent: Lymphadenopathy - Respiratory Exam Respiratory Exam: Decreased Breath Sounds - Cardiovascular Exam Cardiovascular Exam: REGULAR RHYTHM - GI/Abdominal Exam GI & Abdominal Exam: Distended - Rectal Exam Rectal Exam: Deferred - Exam Exam: NORMAL INSPECTION Assessment and Plan (1) CANDELARIA (acute kidney injury) Status: Resolved (2) Acute respiratory failure Status: Acute (3) Altered mental status Status: Deleted (4) Diastolic CHF, acute on chronic Status: Acute (5) Pleural effusion, bilateral Status: Acute (6) Pneumonia Status: Acute (7) Aortic valve vegetation Status: Acute
--- NOTE | 2017-11-17 16:25 | CP.PCM.PN ---
Subjective - Date & Time of Evaluation Date of Evaluation: 11/17/17 Time of Evaluation: 14:00 - Subjective Subjective: Awake , smiling , talking with me and his at bedside with short sentences Objective - Vital Signs/Intake and Output Vital Signs (last 24 hours): Temp Pulse Resp BP Pulse Ox 98.5 F 91 H 16 144/65 100 11/17/17 16:09 11/17/17 16:15 11/17/17 16:09 11/17/17 16:15 11/17/17 16:09 Intake and Output: 11/17/17 11/17/17 06:59 18:59 Intake Total 1020 Output Total 900 Balance 120 - Medications Medications: Current Medications Acetaminophen (Tylenol 650mg/20.3ml Solution Ud) 650 mg PO Q6 PRN PRN Reason: Temperature Last Admin: 11/01/17 09:32 Dose: 650 mg Apixaban (Eliquis) 2.5 mg PO BID [facility] PRN Reason: Protocol Last Admin: 11/17/17 16:16 Dose: 2.5 mg Cholecalciferol (Vitamin D) 5,000 intlu PO DAILY [facility] Last Admin: 11/17/17 08:47 Dose: 5,000 intlu Collagenase (Santyl) 1 applic TOP DAILY [facility] Last Admin: 11/17/17 08:49 Dose: 1 appl Diltiazem HCl (Cardizem) 60 mg PO 0300,0900,1500,2100 [facility] Last Admin: 11/17/17 16:15 Dose: 60 mg Dimethicone (Proshield Plus Skin Protectant) 1 applic TOP Q8 [facility] Last Admin: 11/17/17 16:16 Dose: Not Given Ferrous Gluconate (Fergon) 324 mg PO DAILY [facility] Last Admin: 11/17/17 08:49 Dose: 324 mg Furosemide (Lasix) 40 mg IVP DAILY [facility] Last Admin: 11/17/17 08:49 Dose: 40 mg Metronidazole (Flagyl 500mg/100ml Ns) 100 mls @ 100 mls/hr IVPB Q8 [facility] PRN Reason: Protocol Last Admin: 11/17/17 16:19 Dose: 100 mls/hr Vancomycin HCl 1 gm/ Sodium (Chloride) 250 mls @ 166.667 mls/hr IVPB Q48H [facility] PRN Reason: Protocol Lactobacillus Acidophilus (Bacid Acidophilus) 1 cap PO BID [facility] Last Admin: 11/17/17 16:15 Dose: 1 cap Lamotrigine (Lamictal) 50 mg PO Q12@0930,2130 [facility] Last Admin: 11/17/17 08:47 Dose: 50 mg Metoprolol Succinate (Toprol Xl) 50 mg PO DAILY [facility] Last Admin: 11/17/17 08:48 Dose: 50 mg Pantoprazole Sodium (Protonix Ec Tab) 40 mg PO DAILY [facility] Last Admin: 11/17/17 08:47 Dose: 40 mg Spironolactone (Aldactone) 25 mg PO BID [facility] Last Admin: 11/17/17 16:15 Dose: 25 mg Vancomycin HCl (Vancocin (Oral/Rectal Use)) 250 mg PO QID [facility] PRN Reason: Protocol Last Admin: 11/17/17 16:16 Dose: 250 mg - Labs Labs: 11/17/17 06:30 11/17/17 06:30 PT 14.9 Seconds (9.8-13.1) H 10/29/17 04:20 INR 1.3 (0.9-1.2) H 10/29/17 04:20 APTT 34.4 Seconds (25.6-37.1) 10/26/17 12:30 - Constitutional Appears: Chronically Ill - Head Exam Head Exam: NORMAL INSPECTION - Eye Exam Eye Exam: PERRL - ENT Exam Additional comments: NG tube - Neck Exam Neck Exam: Normal Inspection - Respiratory Exam Respiratory Exam: Decreased Breath Sounds (at bases) - Cardiovascular Exam Cardiovascular Exam: Irregular Rhythm - GI/Abdominal Exam GI & Abdominal Exam: Soft, Normal Bowel Sounds - Extremities Exam Extremities Exam: Normal Inspection - Back Exam Additional comments: 3 sites in coccyx dry - Neurological Exam Neurological Exam: Awake, CN II-XII Intact Additional comments: generalized weakness - Skin Skin Exam: Warm Assessment and Plan (1) Acute respiratory failure with hypoxia Status: Acute (2) Encephalopathy Status: Acute (3) Pleural effusion, bilateral Status: Resolved (4) Diastolic CHF, acute on chronic Status: Acute (5) Hx of seizure disorder Status: Chronic (6) A-fib Status: Chronic (7) CANDELARIA (acute kidney injury) Status: Resolved (8) Anemia Status: Chronic (9) Aortic valve vegetation Status: Acute (10) SUSAN (obstructive sleep apnea) Status: Chronic (11) Pulmonary hypertension Status: Chronic - Assessment and Plan (Free Text) Plan: stool C diff (+) , on Vanco and Flagyl po , Vanco IV for Aortic valve vegetation, Merren DC after 14 days for treatment of Pseudomona Pneumonia , increase PT
--- NOTE | 2017-11-17 22:09 | CON ---
DATE: 11/17/2017 REFERRING PHYSICIAN: Dr. Escamilla. HISTORY OF PRESENT ILLNESS: This is a 77-year-old gentleman who has had a long protracted hospital course over the last 2 months here at [facility], who is referred this morning for evaluation after a C. diff antigen and the stool came back positive. At the time of my evaluation this morning, he is lying in bed. This gentleman has an NG tube in place. He has Wang in place. He is contracted, but he is able to answer some questions. He denies any abdominal pain. There has been no reported nausea, vomiting. According to the nursing staff, he has not been having watery or loose stools, they are not foul smelling; however, they are soft and he has not complained of any abdominal pain per se. His chart was reviewed. It is rather extensive. He is on multiple medications including, being switched over to oral vancomycin yesterday. He had been on IV vancomycin. He is also on Flagyl twice a day and he is receiving Merrem as well as Bacid and other medications. PAST MEDICAL, SURGICAL, FAMILY, AND SOCIAL HISTORY: All reviewed from the chart patient with all that information which I do not know if he is capable of answering all the questions. PHYSICAL EXAMINATION: GENERAL: He is a well-developed, ill-appearing elderly gentleman, who is awake and alert, difficult to give an idea of his orientation, but he did not answer my questions appropriately. VITAL SIGNS: His vital signs are presently stable. He is afebrile at the present time. ABDOMEN: Soft, flat with good bowel sounds, perhaps have been hyperactive. No palpable mass or lesions. No tenderness or distention. LABORATORY DATA: Reviewed including a C. diff antigen was positive. His white count is normal. IMPRESSION AND PLAN: A 77-year-old gentleman, who has had a long protracted 2 months hospitalization with multiple medical problems, referred for Clostridium difficile positivity. He is still on antibiotics including Merrem. He has been changed over to oral vancomycin as well as the metronidazole and the Bacid, all of which will help combat the Clostridium difficile antigen positivity. He has been seen by Dr. Winslow of Infectious Diseases and I would like his input as to antibiotics and perhaps discontinue antibiotics other than those are active against Clostridium difficile to prevent resistance. He more than likely will be treated for at least 21 days of therapy. It is unclear if he had Clostridium difficile during this hospitalization before to me. Apparently, he had a positive testing but the antigen was negative, now the antigen is indeed positive; this is unclear. I would like ID's input in that regard. However, we will continue with the present medical therapy and will follow along with you. He is clinically stable. Roge Lindquist MD
--- NOTE | 2017-11-17 23:07 | CP.PCM.PN ---
Subjective - Date & Time of Evaluation Date of Evaluation: 11/17/17 Time of Evaluation: 21:00 - Subjective Subjective: Awake alert oriented more than before, he is able to answer simple questions. There is no reported seizures. His EEG is abnormal and is showing a focus for seizures. IMPRESSION of CXR: 1. Acceptable position of NG tube. 2. Bilateral pleural effusions with bibasilar atelectasis and/or pneumonia. 3. Incidental/non-acute findings are described above. The still is objecting increasing his Lamictal to a therapeutic dose. His Pseudomonas aeruginosa infection was treated and mepenem is discontinued. Objective - Vital Signs/Intake and Output Vital Signs (last 24 hours): Temp Pulse Resp BP Pulse Ox 98.3 F 124 H 16 110/78 100 11/17/17 20:17 11/17/17 22:39 11/17/17 20:17 11/17/17 22:39 11/17/17 20:17 - Medications Medications: Current Medications Acetaminophen (Tylenol 650mg/20.3ml Solution Ud) 650 mg PO Q6 PRN PRN Reason: Temperature Last Admin: 11/01/17 09:32 Dose: 650 mg Apixaban (Eliquis) 2.5 mg PO BID [facility] PRN Reason: Protocol Last Admin: 11/17/17 16:16 Dose: 2.5 mg Cholecalciferol (Vitamin D) 5,000 intlu PO DAILY [facility] Last Admin: 11/17/17 08:47 Dose: 5,000 intlu Collagenase (Santyl) 1 applic TOP DAILY [facility] Last Admin: 11/17/17 08:49 Dose: 1 appl Diltiazem HCl (Cardizem) 60 mg PO 0300,0900,1500,2100 [facility] Last Admin: 11/17/17 22:39 Dose: 60 mg Dimethicone (Proshield Plus Skin Protectant) 1 applic TOP Q8 [facility] Last Admin: 11/17/17 16:16 Dose: Not Given Ferrous Gluconate (Fergon) 324 mg PO DAILY [facility] Last Admin: 11/17/17 08:49 Dose: 324 mg Furosemide (Lasix) 40 mg IVP DAILY [facility] Last Admin: 11/17/17 08:49 Dose: 40 mg Metronidazole (Flagyl 500mg/100ml Ns) 100 mls @ 100 mls/hr IVPB Q8 [facility] PRN Reason: Protocol Last Admin: 11/17/17 16:19 Dose: 100 mls/hr Vancomycin HCl 1 gm/ Sodium (Chloride) 250 mls @ 166.667 mls/hr IVPB Q48H [facility] PRN Reason: Protocol Lactobacillus Acidophilus (Bacid Acidophilus) 1 cap PO BID [facility] Last Admin: 11/17/17 16:15 Dose: 1 cap Lamotrigine (Lamictal) 50 mg PO Q12@0930,2130 [facility] Last Admin: 11/17/17 22:43 Dose: 50 mg Metoprolol Succinate (Toprol Xl) 50 mg PO DAILY [facility] Last Admin: 11/17/17 08:48 Dose: 50 mg Pantoprazole Sodium (Protonix Ec Tab) 40 mg PO DAILY [facility] Last Admin: 11/17/17 08:47 Dose: 40 mg Spironolactone (Aldactone) 25 mg PO BID [facility] Last Admin: 11/17/17 16:15 Dose: 25 mg Vancomycin HCl (Vancocin (Oral/Rectal Use)) 250 mg PO QID [facility] PRN Reason: Protocol Last Admin: 11/17/17 22:43 Dose: 250 mg - Labs Labs: 11/17/17 06:30 11/17/17 06:30 PT 14.9 Seconds (9.8-13.1) H 10/29/17 04:20 INR 1.3 (0.9-1.2) H 10/29/17 04:20 APTT 34.4 Seconds (25.6-37.1) 10/26/17 12:30 Assessment and Plan (1) CANDELARIA (acute kidney injury) Status: Resolved (2) Acute respiratory failure Status: Acute (3) Altered mental status Status: Deleted (4) Pleural effusion, bilateral Status: Acute (5) Pneumonia Status: Acute (6) Seizure disorder Status: Suspected (7) Encephalopathy Status: Acute
[2017-11-18] MEDS: metroNIDAZOLE 500mg/100ml NS 100 ML IVPB SCH ×3 (01:37→16:39)
[2017-11-18] MEDS: Proshield Plus GEL TOP SCH ×3 (01:47→16:34)
[2017-11-18 07:05] LABS: HEMOGLOBIN 9.9 g/dL (12.0-18.0); MEAN CELL VOLUME 93.7 fl (80.0-94.0); MEAN CORPUSCULAR HEMOGLOBIN 30.3 pg (27.0-31.0); MEAN CORPUSCULAR HGB CONC 32.4 g/dL (33.0-37.0); RBC 3.28 Mil/uL (4.40-5.90); RED CELL DISTRIBUTION WIDTH 20.8 % (11.5-14.5)
[2017-11-18 07:28] LABS: ALB/GLOB RATIO 0.7 (1.0-2.1); ALBUMIN 2.9 g/dL (3.5-5.0); ALT/SGPT 28 U/L (21-72); AST/SGOT 31 U/L (17-59); BLOOD UREA NITROGEN 30 mg/dl (9-20); CALCIUM 8.8 mg/dL (8.4-10.2); GFR AFRICAN-AMERICAN > 60; GFR NON-AFRICAN AMERICAN > 60
[2017-11-18] MEDS: Pantoprazole 40 mg EC Tab PO SCH (08:32)
[2017-11-18] MEDS: Cholecalciferol 1,000 INTLU TAB PO SCH (08:32)
[2017-11-18] MEDS: Metoprolol Succinate 50 mg XL Tab PO SCH (08:33)
[2017-11-18] MEDS: Vancomycin 500 mg (Oral/Rectal USE) PO SCH ×4 (08:35→21:24)
[2017-11-18] MEDS: Lactobacillus Acidophilus 500 MU Cap PO SCH ×2 (08:42→16:39)
--- NOTE | 2017-11-18 10:20 | CP.PCM.PN ---
<Yoon Garvin - Last Filed: 11/18/17 10:17> Subjective - Date & Time of Evaluation Date of Evaluation: 11/18/17 Time of Evaluation: 10:18 - Subjective Subjective: PGY2 progress note for cardiology, Dr. Castro Pt seen and examined at bedside. No acute events overnight. Pt resting comfortably and awakens with name. Denies having any CP, abd pain, N/V. Pt is noted to be positive for c diff and is started on vanco and flagyl; meropenem is discontinued. Objective - Vital Signs/Intake and Output Vital Signs (last 24 hours): Temp Pulse Resp BP Pulse Ox 97.6 F 98 H 21 119/62 100 11/18/17 08:15 11/18/17 08:33 11/18/17 08:52 11/18/17 08:34 11/18/17 08:15 Intake and Output: 11/18/17 11/18/17 06:59 18:59 Intake Total 1370 Output Total 675 Balance 695 - Medications Medications: Current Medications Acetaminophen (Tylenol 650mg/20.3ml Solution Ud) 650 mg PO Q6 PRN PRN Reason: Temperature Last Admin: 11/01/17 09:32 Dose: 650 mg Apixaban (Eliquis) 2.5 mg PO BID [facility] PRN Reason: Protocol Last Admin: 11/18/17 08:31 Dose: 2.5 mg Cholecalciferol (Vitamin D) 5,000 intlu PO DAILY [facility] Last Admin: 11/18/17 08:32 Dose: 5,000 intlu Collagenase (Santyl) 1 applic TOP DAILY [facility] Last Admin: 11/17/17 08:49 Dose: 1 appl Diltiazem HCl (Cardizem) 60 mg PO 0300,0900,1500,2100 [facility] Last Admin: 11/18/17 08:32 Dose: 60 mg Dimethicone (Proshield Plus Skin Protectant) 1 applic TOP Q8 [facility] Last Admin: 11/18/17 01:47 Dose: 1 applic Ferrous Gluconate (Fergon) 324 mg PO DAILY [facility] Last Admin: 11/18/17 08:31 Dose: 324 mg Furosemide (Lasix) 40 mg IVP DAILY [facility] Last Admin: 11/18/17 08:34 Dose: 40 mg Metronidazole (Flagyl 500mg/100ml Ns) 100 mls @ 100 mls/hr IVPB Q8 [facility] PRN Reason: Protocol Last Admin: 11/18/17 08:42 Dose: 100 mls/hr Vancomycin HCl 1 gm/ Sodium (Chloride) 250 mls @ 166.667 mls/hr IVPB Q48H [facility] PRN Reason: Protocol Lactobacillus Acidophilus (Bacid Acidophilus) 1 cap PO BID [facility] Last Admin: 11/18/17 08:42 Dose: 1 cap Lamotrigine (Lamictal) 50 mg PO Q12@0930,2130 [facility] Last Admin: 11/18/17 08:32 Dose: 50 mg Metoprolol Succinate (Toprol Xl) 50 mg PO DAILY [facility] Last Admin: 11/18/17 08:33 Dose: 50 mg Pantoprazole Sodium (Protonix Ec Tab) 40 mg PO DAILY [facility] Last Admin: 11/18/17 08:32 Dose: 40 mg Spironolactone (Aldactone) 25 mg PO BID [facility] Last Admin: 11/18/17 08:31 Dose: 25 mg Vancomycin HCl (Vancocin (Oral/Rectal Use)) 250 mg PO QID [facility] PRN Reason: Protocol Last Admin: 11/18/17 08:35 Dose: 250 mg - Labs Labs: 11/18/17 07:01 11/18/17 07:01 PT 14.9 Seconds (9.8-13.1) H 10/29/17 04:20 INR 1.3 (0.9-1.2) H 10/29/17 04:20 APTT 34.4 Seconds (25.6-37.1) 10/26/17 12:30 - Constitutional Appears: Non-toxic - Head Exam Head Exam: ATRAUMATIC - ENT Exam ENT Exam: Mucous Membranes Moist - Respiratory Exam Respiratory Exam: Clear to Ausculation Bilateral, NORMAL BREATHING PATTERN. absent: Accessory Muscle Use, Rales, Wheezes - Cardiovascular Exam Cardiovascular Exam: REGULAR RHYTHM, +S1, +S2. absent: Gallop, Rubs, Murmur - GI/Abdominal Exam GI & Abdominal Exam: Soft, Normal Bowel Sounds. absent: Distended, Firm, Guarding, Rigid, Tenderness, Organomegaly - Neurological Exam Neurological Exam: Alert, Awake - Skin Skin Exam: Dry, Intact, Normal Color, Warm Assessment and Plan - Assessment and Plan (Free Text) Assessment: (1) A-fib Continue Toprol XL 50 mg qd Continue cardizem. Continue anticoagulation with eliquis (2) Aortic valve vegetation Meropenem is discontinued (3) Pulmonary HTN Continue Revatio 20 mg BID (4) Acute decompensated heart failure ProBNP slightly worse today. Continue current medication regimen Currently on spironolactone BID and lasixs 40 mg IVP qd Echo shows EF of 60-65% (5) Left pleura effusion Meropenem discontinued Sputum grew pseudomonas (6) Encephalopathy Mental status waxes and wanes Currently on Lamictal Neurology is following (7) Seizure disorder EEG showed seizure like activity Currently on Lamictal. Per neuro note, refuses to increase lamictal dose (8) C diff infection Pt started on vancomycin and flagyl Case will be discussed with attending, Dr. Castro <Varun Castro - Last Filed: 11/18/17 11:42> Objective - Vital Signs/Intake and Output Vital Signs (last 24 hours): Temp Pulse Resp BP Pulse Ox 97.6 F 98 H 18 119/63 100 11/18/17 09:00 11/18/17 09:00 11/18/17 09:00 11/18/17 09:00 11/18/17 09:00 Intake and Output: 11/18/17 11/18/17 06:59 18:59 Intake Total 1370 Output Total 675 Balance 695 - Medications Medications: Current Medications Acetaminophen (Tylenol 650mg/20.3ml Solution Ud) 650 mg PO Q6 PRN PRN Reason: Temperature Last Admin: 11/01/17 09:32 Dose: 650 mg Apixaban (Eliquis) 2.5 mg PO BID [facility] PRN Reason: Protocol Last Admin: 11/18/17 08:31 Dose: 2.5 mg Cholecalciferol (Vitamin D) 5,000 intlu PO DAILY [facility] Last Admin: 11/18/17 08:32 Dose: 5,000 intlu Collagenase (Santyl) 1 applic TOP DAILY [facility] Last Admin: 11/17/17 08:49 Dose: 1 appl Diltiazem HCl (Cardizem) 60 mg PO 0300,0900,1500,2100 [facility] Last Admin: 11/18/17 08:32 Dose: 60 mg Dimethicone (Proshield Plus Skin Protectant) 1 applic TOP Q8 [facility] Last Admin: 11/18/17 01:47 Dose: 1 applic Ferrous Gluconate (Fergon) 324 mg PO DAILY [facility] Last Admin: 11/18/17 08:31 Dose: 324 mg Furosemide (Lasix) 40 mg IVP DAILY [facility] Last Admin: 11/18/17 08:34 Dose: 40 mg Metronidazole (Flagyl 500mg/100ml Ns) 100 mls @ 100 mls/hr IVPB Q8 [facility] PRN Reason: Protocol Last Admin: 11/18/17 08:42 Dose: 100 mls/hr Vancomycin HCl 1 gm/ Sodium (Chloride) 250 mls @ 166.667 mls/hr IVPB Q48H [facility] PRN Reason: Protocol Lactobacillus Acidophilus (Bacid Acidophilus) 1 cap PO BID [facility] Last Admin: 11/18/17 08:42 Dose: 1 cap Lamotrigine (Lamictal) 50 mg PO Q12@0930,2130 [facility] Last Admin: 11/18/17 08:32 Dose: 50 mg Metoprolol Succinate (Toprol Xl) 50 mg PO DAILY [facility] Last Admin: 11/18/17 08:33 Dose: 50 mg Pantoprazole Sodium (Protonix Ec Tab) 40 mg PO DAILY [facility] Last Admin: 11/18/17 08:32 Dose: 40 mg Spironolactone (Aldactone) 25 mg PO BID [facility] Last Admin: 11/18/17 08:31 Dose: 25 mg Vancomycin HCl (Vancocin (Oral/Rectal Use)) 250 mg PO QID [facility] PRN Reason: Protocol Last Admin: 11/18/17 08:35 Dose: 250 mg - Labs Labs: 11/18/17 07:01 11/18/17 07:01 PT 14.9 Seconds (9.8-13.1) H 10/29/17 04:20 INR 1.3 (0.9-1.2) H 10/29/17 04:20 APTT 34.4 Seconds (25.6-37.1) 10/26/17 12:30 Assessment and Plan (1) A-fib Status: Chronic (2) Acute on chronic diastolic (congestive) heart failure Status: Chronic (3) Acute respiratory failure with hypoxia Status: Acute (4) Altered mental status Status: Deleted (5) HTN (hypertension) Status: Chronic (6) Seizure disorder Status: Chronic (7) CANDELARIA (acute kidney injury) Status: Resolved (8) Encephalopathy Status: Acute (9) Hypothermia Status: Deleted (10) Pleural effusion, bilateral Status: Acute (11) Supratherapeutic international normalized ratio (INR) Status: Acute (12) Acute decompensated heart failure Status: Acute (13) Atrial fibrillation with RVR Status: Acute Attending/Attestation - Attestation I have personally seen and examined this patient.: Yes I have fully participated in the care of the patient.: Yes I have reviewed all pertinent clinical information, including history, physical exam and plan: Yes Notes (Text): 11/18/17 11:41 add digoxin 0.125 mcg po daily
[2017-11-18] MEDS: Digoxin 500 mcg/2ml (0.5 mg/2ml) Inj IVP SCH (13:35)
[2017-11-18] MEDS: Santyl Collagenase OINTMENT TOP SCH (13:44)
--- NOTE | 2017-11-18 15:59 | CP.PCM.PN ---
Subjective - Date & Time of Evaluation Date of Evaluation: 11/18/17 Time of Evaluation: 11:00 - Subjective Subjective: F/U Respiratory failure. awake , smiling , no AD , Patient's at bedside Objective - Vital Signs/Intake and Output Vital Signs (last 24 hours): Temp Pulse Resp BP Pulse Ox 98.2 F 92 H 18 132/82 98 11/18/17 15:38 11/18/17 15:38 11/18/17 15:38 11/18/17 15:38 11/18/17 15:38 Intake and Output: 11/18/17 11/18/17 06:59 18:59 Intake Total 1370 Output Total 675 Balance 695 - Medications Medications: Current Medications Acetaminophen (Tylenol 650mg/20.3ml Solution Ud) 650 mg PO Q6 PRN PRN Reason: Temperature Last Admin: 11/01/17 09:32 Dose: 650 mg Apixaban (Eliquis) 2.5 mg PO BID [facility] PRN Reason: Protocol Last Admin: 11/18/17 08:31 Dose: 2.5 mg Cholecalciferol (Vitamin D) 5,000 intlu PO DAILY [facility] Last Admin: 11/18/17 08:32 Dose: 5,000 intlu Collagenase (Santyl) 1 applic TOP DAILY [facility] Last Admin: 11/18/17 13:44 Dose: 1 appl Digoxin (Lanoxin) 0.125 mg IVP DAILY [facility] Last Admin: 11/18/17 13:35 Dose: 0.125 mg Diltiazem HCl (Cardizem) 60 mg PO 0300,0900,1500,2100 [facility] Last Admin: 11/18/17 08:32 Dose: 60 mg Dimethicone (Proshield Plus Skin Protectant) 1 applic TOP Q8 [facility] Last Admin: 11/18/17 13:44 Dose: 1 applic Ferrous Gluconate (Fergon) 324 mg PO DAILY [facility] Last Admin: 11/18/17 08:31 Dose: 324 mg Furosemide (Lasix) 40 mg IVP DAILY [facility] Last Admin: 11/18/17 08:34 Dose: 40 mg Metronidazole (Flagyl 500mg/100ml Ns) 100 mls @ 100 mls/hr IVPB Q8 [facility] PRN Reason: Protocol Last Admin: 11/18/17 08:42 Dose: 100 mls/hr Vancomycin HCl 1 gm/ Sodium (Chloride) 250 mls @ 166.667 mls/hr IVPB Q48H [facility] PRN Reason: Protocol Lactobacillus Acidophilus (Bacid Acidophilus) 1 cap PO BID [facility] Last Admin: 11/18/17 08:42 Dose: 1 cap Lamotrigine (Lamictal) 100 mg PO Q12@0930,2130 [facility] Metoprolol Succinate (Toprol Xl) 50 mg PO DAILY [facility] Last Admin: 11/18/17 08:33 Dose: 50 mg Pantoprazole Sodium (Protonix Ec Tab) 40 mg PO DAILY [facility] Last Admin: 11/18/17 08:32 Dose: 40 mg Spironolactone (Aldactone) 25 mg PO BID [facility] Last Admin: 11/18/17 08:31 Dose: 25 mg Vancomycin HCl (Vancocin (Oral/Rectal Use)) 250 mg PO QID [facility] PRN Reason: Protocol Last Admin: 11/18/17 13:35 Dose: 250 mg - Labs Labs: 11/18/17 07:01 11/18/17 07:01 PT 14.9 Seconds (9.8-13.1) H 10/29/17 04:20 INR 1.3 (0.9-1.2) H 10/29/17 04:20 APTT 34.4 Seconds (25.6-37.1) 10/26/17 12:30 - Constitutional Appears: Chronically Ill - Head Exam Head Exam: NORMAL INSPECTION - Eye Exam Eye Exam: PERRL - ENT Exam Additional comments: NG tube - Neck Exam Neck Exam: Normal Inspection - Respiratory Exam Respiratory Exam: Decreased Breath Sounds (at bases) - Cardiovascular Exam Cardiovascular Exam: Irregular Rhythm - GI/Abdominal Exam GI & Abdominal Exam: Soft, Normal Bowel Sounds - Extremities Exam Extremities Exam: Normal Inspection - Back Exam Additional comments: 3 sites in coccyx dry - Neurological Exam Neurological Exam: Awake, CN II-XII Intact Additional comments: Generalized weakness - Skin Skin Exam: Warm Assessment and Plan (1) Acute respiratory failure with hypoxia Status: Acute (2) Encephalopathy Status: Acute (3) Pleural effusion, bilateral Status: Acute (4) Diastolic CHF, acute on chronic Status: Acute (5) Hx of seizure disorder Status: Chronic (6) A-fib Status: Chronic (7) CANDELARIA (acute kidney injury) Status: Resolved (8) Anemia Status: Chronic (9) Aortic valve vegetation Status: Acute (10) SUSAN (obstructive sleep apnea) Status: Chronic (11) Pulmonary hypertension Status: Chronic (12) Clostridium difficile infection Status: Acute - Assessment and Plan (Free Text) Plan: continue High Flow O2, Ba swallow in am, trial of N/C 5/Lm in am, continue current meds Digoxin , Dialtizem, Metropolol , Eliquis ,for AFib , Spirolactone , Lasix for CHF , Vanco NG tube CDiff , Vanco IV for Aortic Valve vegetation.
--- NOTE | 2017-11-18 16:02 | CP.PCM.PN ---
Objective - Vital Signs/Intake and Output Vital Signs (last 24 hours): Temp Pulse Resp BP Pulse Ox 98.2 F 92 H 22 132/82 98 11/18/17 15:38 11/18/17 15:38 11/18/17 16:00 11/18/17 15:38 11/18/17 15:38 Intake and Output: 11/18/17 11/18/17 06:59 18:59 Intake Total 1370 Output Total 675 Balance 695 - Medications Medications: Current Medications Acetaminophen (Tylenol 650mg/20.3ml Solution Ud) 650 mg PO Q6 PRN PRN Reason: Temperature Last Admin: 11/01/17 09:32 Dose: 650 mg Apixaban (Eliquis) 2.5 mg PO BID [facility] PRN Reason: Protocol Last Admin: 11/18/17 08:31 Dose: 2.5 mg Cholecalciferol (Vitamin D) 5,000 intlu PO DAILY [facility] Last Admin: 11/18/17 08:32 Dose: 5,000 intlu Collagenase (Santyl) 1 applic TOP DAILY [facility] Last Admin: 11/18/17 13:44 Dose: 1 appl Digoxin (Lanoxin) 0.125 mg IVP DAILY [facility] Last Admin: 11/18/17 13:35 Dose: 0.125 mg Diltiazem HCl (Cardizem) 60 mg PO 0300,0900,1500,2100 [facility] Last Admin: 11/18/17 08:32 Dose: 60 mg Dimethicone (Proshield Plus Skin Protectant) 1 applic TOP Q8 [facility] Last Admin: 11/18/17 13:44 Dose: 1 applic Ferrous Gluconate (Fergon) 324 mg PO DAILY [facility] Last Admin: 11/18/17 08:31 Dose: 324 mg Furosemide (Lasix) 40 mg IVP DAILY [facility] Last Admin: 11/18/17 08:34 Dose: 40 mg Metronidazole (Flagyl 500mg/100ml Ns) 100 mls @ 100 mls/hr IVPB Q8 [facility] PRN Reason: Protocol Last Admin: 11/18/17 08:42 Dose: 100 mls/hr Vancomycin HCl 1 gm/ Sodium (Chloride) 250 mls @ 166.667 mls/hr IVPB Q48H [facility] PRN Reason: Protocol Lactobacillus Acidophilus (Bacid Acidophilus) 1 cap PO BID [facility] Last Admin: 11/18/17 08:42 Dose: 1 cap Lamotrigine (Lamictal) 100 mg PO Q12@0930,2130 [facility] Metoprolol Succinate (Toprol Xl) 50 mg PO DAILY [facility] Last Admin: 11/18/17 08:33 Dose: 50 mg Pantoprazole Sodium (Protonix Ec Tab) 40 mg PO DAILY [facility] Last Admin: 11/18/17 08:32 Dose: 40 mg Spironolactone (Aldactone) 25 mg PO BID [facility] Last Admin: 11/18/17 08:31 Dose: 25 mg Vancomycin HCl (Vancocin (Oral/Rectal Use)) 250 mg PO QID [facility] PRN Reason: Protocol Last Admin: 11/18/17 13:35 Dose: 250 mg - Labs Labs: 11/18/17 07:01 11/18/17 07:01 PT 14.9 Seconds (9.8-13.1) H 10/29/17 04:20 INR 1.3 (0.9-1.2) H 10/29/17 04:20 APTT 34.4 Seconds (25.6-37.1) 10/26/17 12:30 Assessment and Plan (1) Acute respiratory failure with hypoxia Status: Acute (2) Encephalopathy Status: Acute (3) Pleural effusion, bilateral Status: Acute (4) Diastolic CHF, acute on chronic Status: Acute (5) Hx of seizure disorder Status: Chronic (6) A-fib Status: Chronic (7) CANDELARIA (acute kidney injury) Status: Resolved (8) Anemia Status: Chronic (9) Aortic valve vegetation Status: Acute (10) SUSAN (obstructive sleep apnea) Status: Chronic (11) Pulmonary hypertension Status: Chronic
[2017-11-19] MEDS: Proshield Plus GEL TOP SCH ×3 (00:27→18:06)
[2017-11-19] MEDS: metroNIDAZOLE 500mg/100ml NS 100 ML IVPB SCH ×3 (00:27→18:11)
--- NOTE | 2017-11-19 00:38 | CP.PCM.PN ---
Subjective - Date & Time of Evaluation Date of Evaluation: 11/18/17 Time of Evaluation: 22:00 - Subjective Subjective: Patient will have a barium swallow in AM He is stool incontinent and was cleaned No seizures are reported, no significant lethargy spells. Objective - Vital Signs/Intake and Output Vital Signs (last 24 hours): Temp Pulse Resp BP Pulse Ox 97.7 F 78 21 135/74 100 11/18/17 20:00 11/19/17 00:08 11/18/17 20:03 11/18/17 21:18 11/18/17 20:00 - Medications Medications: Current Medications Acetaminophen (Tylenol 650mg/20.3ml Solution Ud) 650 mg PO Q6 PRN PRN Reason: Temperature Last Admin: 11/01/17 09:32 Dose: 650 mg Apixaban (Eliquis) 2.5 mg PO BID [facility] PRN Reason: Protocol Last Admin: 11/18/17 16:33 Dose: 2.5 mg Cholecalciferol (Vitamin D) 5,000 intlu PO DAILY [facility] Last Admin: 11/18/17 08:32 Dose: 5,000 intlu Collagenase (Santyl) 1 applic TOP DAILY [facility] Last Admin: 11/18/17 13:44 Dose: 1 appl Digoxin (Lanoxin) 0.125 mg IVP DAILY [facility] Last Admin: 11/18/17 13:35 Dose: 0.125 mg Diltiazem HCl (Cardizem) 60 mg PO 0300,0900,1500,2100 [facility] Last Admin: 11/18/17 21:18 Dose: 60 mg Dimethicone (Proshield Plus Skin Protectant) 1 applic TOP Q8 [facility] Last Admin: 11/19/17 00:27 Dose: 1 applic Ferrous Gluconate (Fergon) 324 mg PO DAILY [facility] Last Admin: 11/18/17 08:31 Dose: 324 mg Furosemide (Lasix) 40 mg IVP DAILY [facility] Last Admin: 11/18/17 08:34 Dose: 40 mg Metronidazole (Flagyl 500mg/100ml Ns) 100 mls @ 100 mls/hr IVPB Q8 [facility] PRN Reason: Protocol Last Admin: 11/19/17 00:27 Dose: 100 mls/hr Vancomycin HCl 1 gm/ Sodium (Chloride) 250 mls @ 166.667 mls/hr IVPB Q48H [facility] PRN Reason: Protocol Last Admin: 11/18/17 21:17 Dose: 166.667 mls/hr Lactobacillus Acidophilus (Bacid Acidophilus) 1 cap PO BID [facility] Last Admin: 11/18/17 16:39 Dose: 1 cap Lamotrigine (Lamictal) 100 mg PO Q12@0930,2130 [facility] Last Admin: 11/18/17 21:24 Dose: 100 mg Metoprolol Succinate (Toprol Xl) 50 mg PO DAILY [facility] Last Admin: 11/18/17 08:33 Dose: 50 mg Pantoprazole Sodium (Protonix Ec Tab) 40 mg PO DAILY [facility] Last Admin: 11/18/17 08:32 Dose: 40 mg Spironolactone (Aldactone) 25 mg PO BID [facility] Last Admin: 11/18/17 16:39 Dose: 25 mg Vancomycin HCl (Vancocin (Oral/Rectal Use)) 250 mg PO QID [facility] PRN Reason: Protocol Last Admin: 11/18/17 21:24 Dose: 250 mg - Labs Labs: 11/18/17 07:01 11/18/17 07:01 PT 14.9 Seconds (9.8-13.1) H 10/29/17 04:20 INR 1.3 (0.9-1.2) H 10/29/17 04:20 APTT 34.4 Seconds (25.6-37.1) 10/26/17 12:30 Assessment and Plan (1) CANDELARIA (acute kidney injury) Status: Resolved (2) Acute respiratory failure Status: Acute (3) Altered mental status Status: Deleted (4) Pleural effusion, bilateral Status: Acute (5) Pneumonia Status: Acute (6) Seizure disorder Status: Suspected (7) Encephalopathy Status: Acute
[2017-11-19 06:27] LABS: ALT/SGPT 27 U/L (21-72); AST/SGOT 28 U/L (17-59); BLOOD UREA NITROGEN 28 mg/dl (9-20); CALCIUM 8.8 mg/dL (8.4-10.2); GFR AFRICAN-AMERICAN > 60; GFR NON-AFRICAN AMERICAN > 60; URIC ACID 5.8 mg/Dl (3.5-8.5)
[2017-11-19 06:32] LABS: HEMOGLOBIN 10.2 g/dL (12.0-18.0); MEAN CELL VOLUME 94.2 fl (80.0-94.0); MEAN CORPUSCULAR HEMOGLOBIN 30.3 pg (27.0-31.0); MEAN CORPUSCULAR HGB CONC 32.2 g/dL (33.0-37.0); RBC 3.37 Mil/uL (4.40-5.90); RED CELL DISTRIBUTION WIDTH 20.7 % (11.5-14.5); WHITE BLOOD COUNT 7.7 K/uL (4.8-10.8)
[2017-11-19 06:41] LABS: ALB/GLOB RATIO 0.7 (1.0-2.1)
--- NOTE | 2017-11-19 09:20 | CP.PCM.PN ---
Subjective - Date & Time of Evaluation Date of Evaluation: 11/19/17 Time of Evaluation: 09:18 - Subjective Subjective: feeling fine HR controlled swallow eval today Objective - Vital Signs/Intake and Output Vital Signs (last 24 hours): Temp Pulse Resp BP Pulse Ox 98.4 F 80 16 126/66 100 11/19/17 07:52 11/19/17 07:52 11/19/17 07:55 11/19/17 07:52 11/19/17 07:52 Intake and Output: 11/19/17 11/19/17 06:59 18:59 Intake Total 1240 Output Total 1300 Balance -60 - Medications Medications: Current Medications Acetaminophen (Tylenol 650mg/20.3ml Solution Ud) 650 mg PO Q6 PRN PRN Reason: Temperature Last Admin: 11/01/17 09:32 Dose: 650 mg Apixaban (Eliquis) 2.5 mg PO BID [facility] PRN Reason: Protocol Last Admin: 11/18/17 16:33 Dose: 2.5 mg Cholecalciferol (Vitamin D) 5,000 intlu PO DAILY [facility] Last Admin: 11/18/17 08:32 Dose: 5,000 intlu Collagenase (Santyl) 1 applic TOP DAILY [facility] Last Admin: 11/18/17 13:44 Dose: 1 appl Digoxin (Lanoxin) 0.125 mg IVP DAILY [facility] Last Admin: 11/18/17 13:35 Dose: 0.125 mg Diltiazem HCl (Cardizem) 60 mg PO 0300,0900,1500,2100 [facility] Last Admin: 11/19/17 02:20 Dose: 60 mg Dimethicone (Proshield Plus Skin Protectant) 1 applic TOP Q8 [facility] Last Admin: 11/19/17 00:27 Dose: 1 applic Ferrous Gluconate (Fergon) 324 mg PO DAILY [facility] Last Admin: 11/18/17 08:31 Dose: 324 mg Furosemide (Lasix) 40 mg IVP DAILY [facility] Last Admin: 11/18/17 08:34 Dose: 40 mg Metronidazole (Flagyl 500mg/100ml Ns) 100 mls @ 100 mls/hr IVPB Q8 [facility] PRN Reason: Protocol Last Admin: 11/19/17 00:27 Dose: 100 mls/hr Vancomycin HCl 1 gm/ Sodium (Chloride) 250 mls @ 166.667 mls/hr IVPB Q48H [facility] PRN Reason: Protocol Last Admin: 11/18/17 21:17 Dose: 166.667 mls/hr Lactobacillus Acidophilus (Bacid Acidophilus) 1 cap PO BID [facility] Last Admin: 11/18/17 16:39 Dose: 1 cap Lamotrigine (Lamictal) 100 mg PO Q12@0930,2130 [facility] Last Admin: 11/18/17 21:24 Dose: 100 mg Metoprolol Succinate (Toprol Xl) 50 mg PO DAILY [facility] Last Admin: 11/18/17 08:33 Dose: 50 mg Pantoprazole Sodium (Protonix Ec Tab) 40 mg PO DAILY [facility] Last Admin: 11/18/17 08:32 Dose: 40 mg Spironolactone (Aldactone) 25 mg PO BID [facility] Last Admin: 11/18/17 16:39 Dose: 25 mg Vancomycin HCl (Vancocin (Oral/Rectal Use)) 250 mg PO QID [facility] PRN Reason: Protocol Last Admin: 11/18/17 21:24 Dose: 250 mg - Labs Labs: 11/19/17 06:00 11/19/17 06:00 PT 14.9 Seconds (9.8-13.1) H 10/29/17 04:20 INR 1.3 (0.9-1.2) H 10/29/17 04:20 APTT 34.4 Seconds (25.6-37.1) 10/26/17 12:30 - Constitutional Appears: Well - Head Exam Head Exam: ATRAUMATIC, NORMAL INSPECTION, NORMOCEPHALIC - Eye Exam Eye Exam: EOMI, Normal appearance, PERRL Pupil Exam: NORMAL ACCOMODATION, PERRL - ENT Exam ENT Exam: Mucous Membranes Moist, Normal Exam - Neck Exam Neck Exam: Full ROM, Normal Inspection. absent: Lymphadenopathy - Respiratory Exam Respiratory Exam: Clear to Ausculation Bilateral, NORMAL BREATHING PATTERN - Cardiovascular Exam Cardiovascular Exam: Irregular Rhythm, +S1, +S2, Murmur - GI/Abdominal Exam GI & Abdominal Exam: Soft, Normal Bowel Sounds. absent: Tenderness - Extremities Exam Extremities Exam: Full ROM, Normal Capillary Refill, Normal Inspection. absent : Joint Swelling, Pedal Edema - Back Exam Back Exam: NORMAL INSPECTION - Neurological Exam Neurological Exam: Alert, Awake - Psychiatric Exam Psychiatric exam: Normal Affect, Normal Mood - Skin Skin Exam: Dry, Intact, Normal Color, Warm Assessment and Plan (1) A-fib Status: Chronic (2) Acute on chronic diastolic (congestive) heart failure Status: Chronic (3) Acute respiratory failure with hypoxia Status: Acute (4) Altered mental status Status: Deleted (5) HTN (hypertension) Status: Chronic (6) Seizure disorder Status: Chronic (7) CANDELARIA (acute kidney injury) Status: Resolved (8) Encephalopathy Status: Acute (9) Hypothermia Status: Deleted (10) Pleural effusion, bilateral Status: Acute (11) Supratherapeutic international normalized ratio (INR) Status: Acute (12) Acute decompensated heart failure Status: Acute (13) Atrial fibrillation with RVR Status: Acute
[2017-11-19] MEDS: Lactobacillus Acidophilus 500 MU Cap PO SCH ×3 (09:44→18:10)
[2017-11-19] MEDS: Santyl Collagenase OINTMENT TOP SCH (09:55)
[2017-11-19] MEDS: Digoxin 500 mcg/2ml (0.5 mg/2ml) Inj IVP SCH (09:59)
[2017-11-19] MEDS: Pantoprazole 40 mg EC Tab PO SCH (11:25)
[2017-11-19] MEDS: Metoprolol Succinate 50 mg XL Tab PO SCH (11:27)
[2017-11-19] MEDS: Vancomycin 500 mg (Oral/Rectal USE) PO SCH ×4 (11:29→22:24)
[2017-11-19] MEDS: Cholecalciferol 1,000 INTLU TAB PO SCH (11:29)
[2017-11-19] MEDS ORDERED: Barium Sulfate Susp 0.1% w/v, 0.1% w/w 450 mL Bottle PO ONE (13:25)
--- NOTE | 2017-11-19 14:36 | RAD ---
PROCEDURE: Modified barium swallow study. Fluoroscopy time: 89.4 seconds Cumulative dose: 4.73 mGy HISTORY: Swallow Eval COMPARISON: None available. TECHNIQUE: Under fluoroscopic guidance, barium meals of various consistency were administered to the patient by the speech pathologist. FINDINGS: No penetration or aspiration was observed during this study. Mild delay of swallow initiation noted as straws progressed. IMPRESSION: Please refer to the detailed report and recommendations of the speech pathologist.
--- NOTE | 2017-11-19 16:34 | CP.PCM.PN ---
Subjective - Date & Time of Evaluation Date of Evaluation: 11/19/17 Time of Evaluation: 11:30 - Subjective Subjective: F/U Respiratory failure. awake , smiling , talk with short sentences with me and also Patient's at bedside Objective - Vital Signs/Intake and Output Vital Signs (last 24 hours): Temp Pulse Resp BP Pulse Ox 98.1 F 73 18 117/68 98 11/19/17 15:37 11/19/17 15:37 11/19/17 15:37 11/19/17 15:37 11/19/17 15:37 Intake and Output: 11/19/17 11/19/17 06:59 18:59 Intake Total 1240 Output Total 1300 Balance -60 - Medications Medications: Current Medications Acetaminophen (Tylenol 650mg/20.3ml Solution Ud) 650 mg PO Q6 PRN PRN Reason: Temperature Last Admin: 11/01/17 09:32 Dose: 650 mg Apixaban (Eliquis) 2.5 mg PO BID [facility] PRN Reason: Protocol Last Admin: 11/19/17 11:24 Dose: 2.5 mg Cholecalciferol (Vitamin D) 5,000 intlu PO DAILY [facility] Last Admin: 11/19/17 11:29 Dose: 5,000 intlu Collagenase (Santyl) 1 applic TOP DAILY [facility] Last Admin: 11/19/17 09:55 Dose: 1 appl Digoxin (Lanoxin) 0.125 mg IVP DAILY [facility] Last Admin: 11/19/17 09:59 Dose: 0.125 mg Diltiazem HCl (Cardizem) 60 mg PO 0300,0900,1500,2100 [facility] Last Admin: 11/19/17 11:42 Dose: Not Given Dimethicone (Proshield Plus Skin Protectant) 1 applic TOP Q8 [facility] Last Admin: 11/19/17 09:56 Dose: 1 applic Ferrous Gluconate (Fergon) 324 mg PO DAILY [facility] Last Admin: 11/19/17 11:24 Dose: 324 mg Furosemide (Lasix) 40 mg IVP DAILY [facility] Last Admin: 11/19/17 09:46 Dose: 40 mg Metronidazole (Flagyl 500mg/100ml Ns) 100 mls @ 100 mls/hr IVPB Q8 [facility] PRN Reason: Protocol Last Admin: 11/19/17 09:45 Dose: 100 mls/hr Vancomycin HCl 1 gm/ Sodium (Chloride) 250 mls @ 166.667 mls/hr IVPB Q48H [facility] PRN Reason: Protocol Last Admin: 11/18/17 21:17 Dose: 166.667 mls/hr Lactobacillus Acidophilus (Bacid Acidophilus) 1 cap PO BID [facility] Last Admin: 11/19/17 11:42 Dose: 1 cap Lamotrigine (Lamictal) 100 mg PO Q12@0930,2130 [facility] Last Admin: 11/19/17 11:25 Dose: 100 mg Metoprolol Succinate (Toprol Xl) 50 mg PO DAILY [facility] Last Admin: 11/19/17 11:27 Dose: 50 mg Pantoprazole Sodium (Protonix Ec Tab) 40 mg PO DAILY [facility] Last Admin: 11/19/17 11:25 Dose: 40 mg Spironolactone (Aldactone) 25 mg PO BID [facility] Last Admin: 11/19/17 11:21 Dose: 25 mg Vancomycin HCl (Vancocin (Oral/Rectal Use)) 250 mg PO QID [facility] PRN Reason: Protocol Last Admin: 11/19/17 11:29 Dose: 250 mg - Labs Labs: 11/19/17 06:00 11/19/17 06:00 PT 14.9 Seconds (9.8-13.1) H 10/29/17 04:20 INR 1.3 (0.9-1.2) H 10/29/17 04:20 APTT 34.4 Seconds (25.6-37.1) 10/26/17 12:30 - Constitutional Appears: Chronically Ill - Eye Exam Eye Exam: PERRL - ENT Exam Additional comments: Dry scab nose bridge , NG tube - Neck Exam Neck Exam: Normal Inspection - Respiratory Exam Respiratory Exam: Decreased Breath Sounds (at bases) - Cardiovascular Exam Cardiovascular Exam: Irregular Rhythm - GI/Abdominal Exam GI & Abdominal Exam: Soft, Normal Bowel Sounds - Extremities Exam Extremities Exam: Normal Inspection - Back Exam Additional comments: 3 sites in coccyx dry - Neurological Exam Neurological Exam: Alert, CN II-XII Intact Additional comments: generalized weakness - Psychiatric Exam Psychiatric exam: Normal Affect - Skin Skin Exam: Warm Assessment and Plan (1) Acute respiratory failure with hypoxia Status: Acute (2) Encephalopathy Status: Acute (3) Pleural effusion, bilateral Status: Acute (4) Diastolic CHF, acute on chronic Status: Acute (5) Hx of seizure disorder Status: Chronic (6) A-fib Status: Chronic (7) CANDELARIA (acute kidney injury) Status: Acute (8) Anemia Status: Chronic (9) Aortic valve vegetation Status: Acute (10) SUSAN (obstructive sleep apnea) Status: Chronic (11) Pulmonary hypertension Status: Chronic (12) Clostridium difficile infection Status: Acute - Assessment and Plan (Free Text) Plan: on NC 5 L /m for going Radiology Dept to have Ba swallow, continue current treatment and PT in Pulmonary Sport bed.
--- NOTE | 2017-11-19 17:56 | CP.PCM.PN ---
Subjective - Date & Time of Evaluation Date of Evaluation: 11/19/17 Time of Evaluation: 17:00 - Subjective Subjective: He is awake, alert, smiley, oriented, no seizures He passed the swallowing evaluation for Puree diet only Lamictal is 100 mg Q 12 hrs and need to be increased to a therapeutic dose which will be reached after a week. The therapeutic dose of Lamictal is 150 Q 12hrs up to 250 mg Q 12 hrs. Objective - Vital Signs/Intake and Output Vital Signs (last 24 hours): Temp Pulse Resp BP Pulse Ox 98.1 F 73 18 117/68 98 11/19/17 15:37 11/19/17 15:37 11/19/17 15:37 11/19/17 15:37 11/19/17 15:37 Intake and Output: 11/19/17 11/19/17 06:59 18:59 Intake Total 1240 Output Total 1300 Balance -60 - Medications Medications: Current Medications Acetaminophen (Tylenol 650mg/20.3ml Solution Ud) 650 mg PO Q6 PRN PRN Reason: Temperature Last Admin: 11/01/17 09:32 Dose: 650 mg Apixaban (Eliquis) 2.5 mg PO BID [facility] PRN Reason: Protocol Last Admin: 11/19/17 11:24 Dose: 2.5 mg Cholecalciferol (Vitamin D) 5,000 intlu PO DAILY [facility] Last Admin: 11/19/17 11:29 Dose: 5,000 intlu Collagenase (Santyl) 1 applic TOP DAILY [facility] Last Admin: 11/19/17 09:55 Dose: 1 appl Digoxin (Lanoxin) 0.125 mg IVP DAILY [facility] Last Admin: 11/19/17 09:59 Dose: 0.125 mg Diltiazem HCl (Cardizem) 60 mg PO Q8 [facility] Dimethicone (Proshield Plus Skin Protectant) 1 applic TOP Q8 [facility] Last Admin: 11/19/17 09:56 Dose: 1 applic Ferrous Gluconate (Fergon) 324 mg PO DAILY [facility] Last Admin: 11/19/17 11:24 Dose: 324 mg Furosemide (Lasix) 40 mg IVP DAILY [facility] Last Admin: 11/19/17 09:46 Dose: 40 mg Metronidazole (Flagyl 500mg/100ml Ns) 100 mls @ 100 mls/hr IVPB Q8 [facility] PRN Reason: Protocol Last Admin: 11/19/17 09:45 Dose: 100 mls/hr Vancomycin HCl 1 gm/ Sodium (Chloride) 250 mls @ 166.667 mls/hr IVPB Q48H [facility] PRN Reason: Protocol Last Admin: 11/18/17 21:17 Dose: 166.667 mls/hr Lactobacillus Acidophilus (Bacid Acidophilus) 1 cap PO BID [facility] Last Admin: 11/19/17 11:42 Dose: 1 cap Lamotrigine (Lamictal) 100 mg PO Q12@0930,2130 [facility] Last Admin: 11/19/17 11:25 Dose: 100 mg Metoprolol Succinate (Toprol Xl) 50 mg PO DAILY [facility] Last Admin: 11/19/17 11:27 Dose: 50 mg Pantoprazole Sodium (Protonix Ec Tab) 40 mg PO DAILY [facility] Last Admin: 11/19/17 11:25 Dose: 40 mg Spironolactone (Aldactone) 25 mg PO BID [facility] Last Admin: 11/19/17 11:21 Dose: 25 mg Vancomycin HCl (Vancocin (Oral/Rectal Use)) 250 mg PO QID [facility] PRN Reason: Protocol Last Admin: 11/19/17 11:29 Dose: 250 mg - Labs Labs: 11/19/17 06:00 11/19/17 06:00 PT 14.9 Seconds (9.8-13.1) H 10/29/17 04:20 INR 1.3 (0.9-1.2) H 10/29/17 04:20 APTT 34.4 Seconds (25.6-37.1) 10/26/17 12:30 Assessment and Plan (1) CANDELARIA (acute kidney injury) Status: Resolved (2) Acute respiratory failure Status: Acute (3) Altered mental status Status: Deleted (4) Pleural effusion, bilateral Status: Acute (5) Pneumonia Status: Acute (6) Seizure disorder Status: Suspected (7) Encephalopathy Status: Acute
[2017-11-20] MEDS: metroNIDAZOLE 500mg/100ml NS 100 ML IVPB SCH ×3 (00:44→17:24)
[2017-11-20] MEDS: Proshield Plus GEL TOP SCH ×2 (00:47→13:05)
--- NOTE | 2017-11-20 08:53 | CP.PCM.PN ---
<Yoon Garvin - Last Filed: 11/20/17 12:25> Subjective - Date & Time of Evaluation Date of Evaluation: 11/20/17 Time of Evaluation: 08:51 - Subjective Subjective: PGY2 progress note for cardiology, Dr Castro Pt seen and examined at bedside. No acute events overnight. at bedside. Pt is responding to name, answering questions and following simple commands. Pt denies having any CP, SOB, abd pain, N/V. Objective - Vital Signs/Intake and Output Vital Signs (last 24 hours): Temp Pulse Resp BP Pulse Ox 97.5 F L 88 20 124/73 100 11/20/17 08:16 11/20/17 08:16 11/20/17 08:16 11/20/17 08:16 11/20/17 08:16 Intake and Output: 11/20/17 11/20/17 06:59 18:59 Intake Total 1260 Output Total 1200 Balance 60 - Medications Medications: Current Medications Acetaminophen (Tylenol 650mg/20.3ml Solution Ud) 650 mg PO Q6 PRN PRN Reason: Temperature Last Admin: 11/01/17 09:32 Dose: 650 mg Apixaban (Eliquis) 2.5 mg PO BID [facility] PRN Reason: Protocol Last Admin: 11/19/17 18:05 Dose: 2.5 mg Cholecalciferol (Vitamin D) 5,000 intlu PO DAILY [facility] Last Admin: 11/19/17 11:29 Dose: 5,000 intlu Collagenase (Santyl) 1 applic TOP DAILY [facility] Last Admin: 11/19/17 09:55 Dose: 1 appl Digoxin (Lanoxin) 0.125 mg IVP DAILY [facility] Last Admin: 11/19/17 09:59 Dose: 0.125 mg Diltiazem HCl (Cardizem) 60 mg PO Q8 [facility] Last Admin: 11/20/17 00:44 Dose: 60 mg Dimethicone (Proshield Plus Skin Protectant) 1 applic TOP Q8 [facility] Last Admin: 11/20/17 00:47 Dose: 1 applic Ferrous Gluconate (Fergon) 324 mg PO DAILY [facility] Last Admin: 11/19/17 11:24 Dose: 324 mg Furosemide (Lasix) 40 mg IVP DAILY [facility] Last Admin: 11/19/17 09:46 Dose: 40 mg Metronidazole (Flagyl 500mg/100ml Ns) 100 mls @ 100 mls/hr IVPB Q8 [facility] PRN Reason: Protocol Last Admin: 11/20/17 00:44 Dose: 100 mls/hr Vancomycin HCl 1 gm/ Sodium (Chloride) 250 mls @ 166.667 mls/hr IVPB Q48H [facility] PRN Reason: Protocol Last Admin: 11/18/17 21:17 Dose: 166.667 mls/hr Lactobacillus Acidophilus (Bacid Acidophilus) 1 cap PO BID [facility] Last Admin: 11/19/17 18:10 Dose: 1 cap Lamotrigine (Lamictal) 100 mg PO Q12@0930,2130 [facility] Last Admin: 11/19/17 22:24 Dose: 100 mg Metoprolol Succinate (Toprol Xl) 50 mg PO DAILY [facility] Last Admin: 11/19/17 11:27 Dose: 50 mg Pantoprazole Sodium (Protonix Ec Tab) 40 mg PO DAILY [facility] Last Admin: 11/19/17 11:25 Dose: 40 mg Spironolactone (Aldactone) 25 mg PO BID [facility] Last Admin: 11/19/17 18:04 Dose: 25 mg Vancomycin HCl (Vancocin (Oral/Rectal Use)) 250 mg PO QID [facility] PRN Reason: Protocol Last Admin: 11/19/17 22:24 Dose: 250 mg - Labs Labs: 11/19/17 06:00 11/19/17 06:00 PT 14.9 Seconds (9.8-13.1) H 10/29/17 04:20 INR 1.3 (0.9-1.2) H 10/29/17 04:20 APTT 34.4 Seconds (25.6-37.1) 10/26/17 12:30 - Constitutional Appears: Non-toxic, No Acute Distress - Head Exam Head Exam: ATRAUMATIC - ENT Exam ENT Exam: Mucous Membranes Moist - Respiratory Exam Respiratory Exam: Rhonchi (left sided ). absent: Accessory Muscle Use, Rales, Wheezes, Respiratory Distress - Cardiovascular Exam Cardiovascular Exam: Irregular Rhythm, +S1, +S2. absent: Gallop, Rubs, Murmur - GI/Abdominal Exam GI & Abdominal Exam: Soft, Normal Bowel Sounds. absent: Distended, Firm, Guarding, Rigid, Tenderness, Organomegaly - Extremities Exam Extremities Exam: absent: Pedal Edema, Tenderness - Neurological Exam Neurological Exam: Alert, Awake - Psychiatric Exam Psychiatric exam: Normal Affect, Normal Mood - Skin Skin Exam: Dry, Intact, Normal Color, Warm Assessment and Plan - Assessment and Plan (Free Text) Assessment: (1) A-fib Pt started on digoxin 0.125 qd. Heart rate currently stable Continue Toprol XL 50 mg qd Continue cardizem. Continue anticoagulation with eliquis (2) Aortic valve vegetation Meropenem is discontinued (3) Pulmonary HTN Continue Revatio 20 mg BID (4) Acute decompensated heart failure Will recheck BNP today Currently on spironolactone BID and lasixs 40 mg IVP qd Echo shows EF of 60-65% (5) Left pleura effusion Meropenem discontinued Sputum grew pseudomonas (6) Encephalopathy Mental status waxes and wanes Currently on Lamictal Neurology is following Pt underwent barium swallow. Speech therapist recs pureed diet but states that pt would benefit supplemental nutrition. Currently continuing NG tube feeding (7) Seizure disorder EEG showed seizure like activity Currently on Lamictal. Per neuro note, refuses to increase lamictal dose (8) C diff infection Pt started on vancomycin and flagyl Case will be discussed with attending, Dr. Castro <Varun Castro - Last Filed: 11/21/17 10:35> Objective - Vital Signs/Intake and Output Vital Signs (last 24 hours): Temp Pulse Resp BP Pulse Ox 98.5 F 70 18 130/76 97 11/21/17 08:48 11/21/17 10:09 11/21/17 08:48 11/21/17 10:09 11/21/17 08:48 Intake and Output: 11/21/17 11/21/17 06:59 18:59 Intake Total 1140 Output Total 650 Balance 490 - Medications Medications: Current Medications Acetaminophen (Tylenol 650mg/20.3ml Solution Ud) 650 mg PO Q6 PRN PRN Reason: Temperature Last Admin: 11/01/17 09:32 Dose: 650 mg Apixaban (Eliquis) 2.5 mg PO BID [facility] PRN Reason: Protocol Last Admin: 11/21/17 10:08 Dose: 2.5 mg Cholecalciferol (Vitamin D) 5,000 intlu PO DAILY [facility] Last Admin: 11/21/17 10:10 Dose: 5,000 intlu Collagenase (Santyl) 1 applic TOP DAILY [facility] Last Admin: 11/20/17 13:04 Dose: Not Given Digoxin (Lanoxin) 0.125 mg IVP DAILY [facility] Last Admin: 11/21/17 10:10 Dose: 0.125 mg Diltiazem HCl (Cardizem) 60 mg PO Q8 [facility] Last Admin: 11/21/17 10:08 Dose: 60 mg Ferrous Gluconate (Fergon) 324 mg PO DAILY [facility] Last Admin: 11/21/17 10:08 Dose: 324 mg Furosemide (Lasix) 40 mg IVP DAILY [facility] Last Admin: 11/21/17 10:09 Dose: 40 mg Metronidazole (Flagyl 500mg/100ml Ns) 100 mls @ 100 mls/hr IVPB Q8 [facility] PRN Reason: Protocol Last Admin: 11/21/17 10:00 Dose: 100 mls/hr Vancomycin HCl 1 gm/ Sodium (Chloride) 250 mls @ 166.667 mls/hr IVPB Q48H [facility] PRN Reason: Protocol Last Admin: 11/20/17 17:23 Dose: 166.667 mls/hr Lamotrigine (Lamictal) 100 mg PO Q12@0930,2130 [facility] Last Admin: 11/21/17 10:08 Dose: 100 mg Metoprolol Succinate (Toprol Xl) 50 mg PO DAILY [facility] Last Admin: 11/21/17 10:09 Dose: 50 mg Pantoprazole Sodium (Protonix Ec Tab) 40 mg PO DAILY [facility] Last Admin: 11/21/17 10:09 Dose: 40 mg Spironolactone (Aldactone) 25 mg PO BID [facility] Last Admin: 11/21/17 10:08 Dose: 25 mg Vancomycin HCl (Vancocin (Oral/Rectal Use)) 250 mg PO QID [facility] PRN Reason: Protocol Last Admin: 11/21/17 10:12 Dose: 250 mg - Labs Labs: 11/20/17 11:40 11/20/17 11:40 PT 14.9 Seconds (9.8-13.1) H 10/29/17 04:20 INR 1.3 (0.9-1.2) H 10/29/17 04:20 APTT 34.4 Seconds (25.6-37.1) 10/26/17 12:30 Assessment and Plan (1) A-fib Status: Chronic (2) Acute on chronic diastolic (congestive) heart failure Status: Chronic (3) Acute respiratory failure with hypoxia Status: Acute (4) Altered mental status Status: Deleted (5) HTN (hypertension) Status: Chronic (6) Seizure disorder Status: Chronic (7) CANDELARIA (acute kidney injury) Status: Resolved (8) Encephalopathy Status: Acute (9) Hypothermia Status: Deleted (10) Pleural effusion, bilateral Status: Acute (11) Supratherapeutic international normalized ratio (INR) Status: Acute (12) Acute decompensated heart failure Status: Acute (13) Atrial fibrillation with RVR Status: Acute Attending/Attestation - Attestation I have personally seen and examined this patient.: Yes I have fully participated in the care of the patient.: Yes I have reviewed all pertinent clinical information, including history, physical exam and plan: Yes
[2017-11-20] MEDS: Cholecalciferol 1,000 INTLU TAB PO SCH (09:42)
[2017-11-20] MEDS: Pantoprazole 40 mg EC Tab PO SCH (09:42)
[2017-11-20] MEDS: Vancomycin 500 mg (Oral/Rectal USE) PO SCH ×4 (09:45→21:21)
[2017-11-20] MEDS: Lactobacillus Acidophilus 500 MU Cap PO SCH (09:58)
[2017-11-20] MEDS: Metoprolol Succinate 50 mg XL Tab PO SCH (10:02)
[2017-11-20] MEDS: Digoxin 500 mcg/2ml (0.5 mg/2ml) Inj IVP SCH (11:45)
[2017-11-20 11:57] LABS: MEAN CELL VOLUME 92.7 fl (80.0-94.0); MEAN CORPUSCULAR HEMOGLOBIN 30.7 pg (27.0-31.0); MEAN CORPUSCULAR HGB CONC 33.2 g/dL (33.0-37.0); RBC 3.59 Mil/uL (4.40-5.90); RED CELL DISTRIBUTION WIDTH 20.6 % (11.5-14.5); WHITE BLOOD COUNT 6.4 K/uL (4.8-10.8)
[2017-11-20 12:20] LABS: ALB/GLOB RATIO 0.8 (1.0-2.1); ALBUMIN 3.2 g/dL (3.5-5.0); ALT/SGPT 24 U/L (21-72); AST/SGOT 23 U/L (17-59); BLOOD UREA NITROGEN 27 mg/dl (9-20); CALCIUM 8.8 mg/dL (8.4-10.2); GFR AFRICAN-AMERICAN > 60; GFR NON-AFRICAN AMERICAN > 60
[2017-11-20 12:28] LABS: B-TYPE NATRIURETIC PEPTIDE 1120 pg/ml (0-900)
--- NOTE | 2017-11-20 12:57 | CP.PCM.PN ---
Subjective - Date & Time of Evaluation Date of Evaluation: 11/20/17 Time of Evaluation: 10:30 - Subjective Subjective: F/U Respiratory Failure. Pt awake, smiling, able to talk with simple words, at bedside. Objective - Vital Signs/Intake and Output Vital Signs (last 24 hours): Temp Pulse Resp BP Pulse Ox 98.1 F 71 20 123/79 100 11/20/17 12:00 11/20/17 12:00 11/20/17 12:00 11/20/17 12:00 11/20/17 12:00 Intake and Output: 11/20/17 11/20/17 06:59 18:59 Intake Total 1260 Output Total 1200 Balance 60 - Medications Medications: Current Medications Acetaminophen (Tylenol 650mg/20.3ml Solution Ud) 650 mg PO Q6 PRN PRN Reason: Temperature Last Admin: 11/01/17 09:32 Dose: 650 mg Apixaban (Eliquis) 2.5 mg PO BID [facility] PRN Reason: Protocol Last Admin: 11/20/17 09:42 Dose: 2.5 mg Cholecalciferol (Vitamin D) 5,000 intlu PO DAILY [facility] Last Admin: 11/20/17 09:42 Dose: 5,000 intlu Collagenase (Santyl) 1 applic TOP DAILY [facility] Last Admin: 11/19/17 09:55 Dose: 1 appl Digoxin (Lanoxin) 0.125 mg IVP DAILY [facility] Last Admin: 11/20/17 11:45 Dose: 0.125 mg Diltiazem HCl (Cardizem) 60 mg PO Q8 [facility] Last Admin: 11/20/17 09:42 Dose: 60 mg Ferrous Gluconate (Fergon) 324 mg PO DAILY [facility] Last Admin: 11/20/17 09:42 Dose: 324 mg Furosemide (Lasix) 40 mg IVP DAILY [facility] Last Admin: 11/20/17 09:46 Dose: 40 mg Metronidazole (Flagyl 500mg/100ml Ns) 100 mls @ 100 mls/hr IVPB Q8 [facility] PRN Reason: Protocol Last Admin: 11/20/17 09:43 Dose: 100 mls/hr Vancomycin HCl 1 gm/ Sodium (Chloride) 250 mls @ 166.667 mls/hr IVPB Q48H [facility] PRN Reason: Protocol Last Admin: 11/18/17 21:17 Dose: 166.667 mls/hr Lamotrigine (Lamictal) 100 mg PO Q12@0930,2130 [facility] Last Admin: 11/20/17 09:42 Dose: 100 mg Metoprolol Succinate (Toprol Xl) 50 mg PO DAILY [facility] Last Admin: 11/20/17 10:02 Dose: 50 mg Pantoprazole Sodium (Protonix Ec Tab) 40 mg PO DAILY [facility] Last Admin: 11/20/17 09:42 Dose: 40 mg Spironolactone (Aldactone) 25 mg PO BID [facility] Last Admin: 11/20/17 09:42 Dose: 25 mg Vancomycin HCl (Vancocin (Oral/Rectal Use)) 250 mg PO QID [facility] PRN Reason: Protocol Last Admin: 11/20/17 09:45 Dose: 250 mg - Labs Labs: 11/20/17 11:40 11/20/17 11:40 PT 14.9 Seconds (9.8-13.1) H 10/29/17 04:20 INR 1.3 (0.9-1.2) H 10/29/17 04:20 APTT 34.4 Seconds (25.6-37.1) 10/26/17 12:30 - Constitutional Appears: Chronically Ill - Head Exam Head Exam: NORMAL INSPECTION - Eye Exam Eye Exam: PERRL - ENT Exam Additional comments: Dry scab nose bridge, NG tube - Neck Exam Neck Exam: Normal Inspection - Respiratory Exam Respiratory Exam: Decreased Breath Sounds (at bases) - Cardiovascular Exam Cardiovascular Exam: Irregular Rhythm - GI/Abdominal Exam GI & Abdominal Exam: Soft, Normal Bowel Sounds - Extremities Exam Extremities Exam: Normal Inspection - Back Exam Additional comments: 3 sites in coccyx dry - Neurological Exam Neurological Exam: Alert, CN II-XII Intact Additional comments: Generalized weakness - Psychiatric Exam Psychiatric exam: Normal Affect - Skin Skin Exam: Warm Assessment and Plan (1) Acute respiratory failure with hypoxia Status: Acute (2) Encephalopathy Status: Acute (3) Pleural effusion, bilateral Status: Acute (4) Diastolic CHF, acute on chronic Status: Acute (5) Hx of seizure disorder Status: Chronic (6) A-fib Status: Chronic (7) CANDELARIA (acute kidney injury) Status: Resolved (8) Anemia Status: Chronic (9) Aortic valve vegetation Status: Acute (10) SUSAN (obstructive sleep apnea) Status: Chronic (11) Pulmonary hypertension Status: Chronic (12) Clostridium difficile infection Status: Acute - Assessment and Plan (Free Text) Plan: Pt pass swallow eval, begin puree diet thickening fluid, trial NC 5 L/M, monitor O2 Sat, continue rest of Tx.
[2017-11-20] MEDS: Santyl Collagenase OINTMENT TOP SCH (13:04)
--- NOTE | 2017-11-20 14:18 | CP.PCM.PN ---
Subjective - Date & Time of Evaluation Date of Evaluation: 11/20/17 Time of Evaluation: 08:00 - Subjective Subjective: more alert today iv rx renewed Objective - Vital Signs/Intake and Output Vital Signs (last 24 hours): Temp Pulse Resp BP Pulse Ox 98.1 F 71 20 123/79 100 11/20/17 12:00 11/20/17 12:00 11/20/17 12:00 11/20/17 12:00 11/20/17 12:00 Intake and Output: 11/20/17 11/20/17 06:59 18:59 Intake Total 1260 Output Total 1200 Balance 60 - Medications Medications: Current Medications Acetaminophen (Tylenol 650mg/20.3ml Solution Ud) 650 mg PO Q6 PRN PRN Reason: Temperature Last Admin: 11/01/17 09:32 Dose: 650 mg Apixaban (Eliquis) 2.5 mg PO BID [facility] PRN Reason: Protocol Last Admin: 11/20/17 09:42 Dose: 2.5 mg Cholecalciferol (Vitamin D) 5,000 intlu PO DAILY [facility] Last Admin: 11/20/17 09:42 Dose: 5,000 intlu Collagenase (Santyl) 1 applic TOP DAILY [facility] Last Admin: 11/20/17 13:04 Dose: Not Given Digoxin (Lanoxin) 0.125 mg IVP DAILY [facility] Last Admin: 11/20/17 11:45 Dose: 0.125 mg Diltiazem HCl (Cardizem) 60 mg PO Q8 [facility] BY [facility] Last Admin: 11/20/17 09:42 Dose: 60 mg Ferrous Gluconate (Fergon) 324 mg PO DAILY [facility] BY [facility] Last Admin: 11/20/17 09:42 Dose: 324 mg Furosemide (Lasix) 40 mg IVP DAILY [facility] Last Admin: 11/20/17 09:46 Dose: 40 mg Metronidazole (Flagyl 500mg/100ml Ns) 100 mls @ 100 mls/hr IVPB Q8 [facility] PRN Reason: Protocol Last Admin: 11/20/17 09:43 Dose: 100 mls/hr Vancomycin HCl 1 gm/ Sodium (Chloride) 250 mls @ 166.667 mls/hr IVPB Q48H [facility] PRN Reason: Protocol Last Admin: 11/18/17 21:17 Dose: 166.667 mls/hr Lamotrigine (Lamictal) 100 mg PO Q12@0930,2130 [facility] Last Admin: 11/20/17 09:42 Dose: 100 mg Metoprolol Succinate (Toprol Xl) 50 mg PO DAILY [facility] Last Admin: 11/20/17 10:02 Dose: 50 mg Pantoprazole Sodium (Protonix Ec Tab) 40 mg PO DAILY [facility] BY [facility] Last Admin: 11/20/17 09:42 Dose: 40 mg Spironolactone (Aldactone) 25 mg PO BID [facility] BY [facility] Last Admin: 11/20/17 09:42 Dose: 25 mg Vancomycin HCl (Vancocin (Oral/Rectal Use)) 250 mg PO QID [facility]PL[facility] BY [facility] PRN Reason: Protocol Last Admin: 11/20/17 09:45 Dose: 250 mg - Labs Labs: 11/20/17 11:40 11/20/17 11:40 PT 14.9 Seconds (9.8-13.1) H 10/29/17 04:20 INR 1.3 (0.9-1.2) H 10/29/17 04:20 APTT 34.4 Seconds (25.6-37.1) 10/26/17 12:30 - Constitutional Appears: Non-toxic, Chronically Ill - Head Exam Head Exam: NORMOCEPHALIC - Eye Exam Eye Exam: PERRL - ENT Exam ENT Exam: Mucous Membranes Dry - Neck Exam Neck Exam: absent: Lymphadenopathy - Respiratory Exam Respiratory Exam: Decreased Breath Sounds - Cardiovascular Exam Cardiovascular Exam: REGULAR RHYTHM - GI/Abdominal Exam GI & Abdominal Exam: Distended, Soft - Rectal Exam Rectal Exam: Deferred - Exam Exam: NORMAL INSPECTION - Extremities Exam Extremities Exam: absent: Pedal Edema - Back Exam Back Exam: absent: CVA tenderness (L), CVA tenderness (R) Assessment and Plan (1) CANDELARIA (acute kidney injury) Status: Resolved (2) Acute respiratory failure Status: Acute (3) Altered mental status Status: Deleted (4) Diastolic CHF, acute on chronic Status: Acute (5) Pleural effusion, bilateral Status: Acute (6) Pneumonia Status: Acute (7) Aortic valve vegetation Status: Acute
--- NOTE | 2017-11-20 22:11 | CP.PCM.PN ---
Subjective - Date & Time of Evaluation Date of Evaluation: 11/20/17 Time of Evaluation: 20:40 - Subjective Subjective: Patient passed the swallowing evaluation for puree diet. FINDINGS of Barium swallowing evaluation done by speech pathology: No penetration or aspiration was observed during this study. Mild delay of swallow initiation noted as straws progressed. No seizures are seen or reported. He is on Lamictal 100 mg Q 12 hrs since 11/19/2016. After a week we need to move up to 150 mg Q 12 hrs in order to have a therapeutic dose to control his seizures. He is responsive and able to keep a short conversation with limited vocabulary and a nice smile. Objective - Vital Signs/Intake and Output Vital Signs (last 24 hours): Temp Pulse Resp BP Pulse Ox 98 F 74 20 123/71 100 11/20/17 19:14 11/20/17 19:14 11/20/17 19:14 11/20/17 19:14 11/20/17 19:14 Intake and Output: 11/20/17 11/21/17 18:59 06:59 Intake Total 1850 Output Total 1200 Balance 650 - Medications Medications: Current Medications Acetaminophen (Tylenol 650mg/20.3ml Solution Ud) 650 mg PO Q6 PRN PRN Reason: Temperature Last Admin: 11/01/17 09:32 Dose: 650 mg Apixaban (Eliquis) 2.5 mg PO BID [facility] PRN Reason: Protocol Last Admin: 11/20/17 17:14 Dose: 2.5 mg Cholecalciferol (Vitamin D) 5,000 intlu PO DAILY [facility] Last Admin: 11/20/17 09:42 Dose: 5,000 intlu Collagenase (Santyl) 1 applic TOP DAILY [facility] Last Admin: 11/20/17 13:04 Dose: Not Given Digoxin (Lanoxin) 0.125 mg IVP DAILY [facility] Last Admin: 11/20/17 11:45 Dose: 0.125 mg Diltiazem HCl (Cardizem) 60 mg PO Q8 [facility] Last Admin: 11/20/17 17:14 Dose: 60 mg Ferrous Gluconate (Fergon) 324 mg PO DAILY [facility] Last Admin: 11/20/17 09:42 Dose: 324 mg Furosemide (Lasix) 40 mg IVP DAILY [facility] Last Admin: 11/20/17 09:46 Dose: 40 mg Metronidazole (Flagyl 500mg/100ml Ns) 100 mls @ 100 mls/hr IVPB Q8 [facility] PRN Reason: Protocol Last Admin: 11/20/17 17:24 Dose: 100 mls/hr Vancomycin HCl 1 gm/ Sodium (Chloride) 250 mls @ 166.667 mls/hr IVPB Q48H [facility] PRN Reason: Protocol Last Admin: 11/20/17 17:23 Dose: 166.667 mls/hr Lamotrigine (Lamictal) 100 mg PO Q12@0930,2130 [facility] Last Admin: 11/20/17 21:20 Dose: 100 mg Metoprolol Succinate (Toprol Xl) 50 mg PO DAILY [facility] Last Admin: 11/20/17 10:02 Dose: 50 mg Pantoprazole Sodium (Protonix Ec Tab) 40 mg PO DAILY [facility] Last Admin: 11/20/17 09:42 Dose: 40 mg Spironolactone (Aldactone) 25 mg PO BID [facility] Last Admin: 11/20/17 17:14 Dose: 25 mg Vancomycin HCl (Vancocin (Oral/Rectal Use)) 250 mg PO QID [facility] PRN Reason: Protocol Last Admin: 11/20/17 21:21 Dose: 250 mg - Labs Labs: 11/20/17 11:40 11/20/17 11:40 PT 14.9 Seconds (9.8-13.1) H 10/29/17 04:20 INR 1.3 (0.9-1.2) H 10/29/17 04:20 APTT 34.4 Seconds (25.6-37.1) 10/26/17 12:30 Assessment and Plan (1) CANDELARIA (acute kidney injury) Status: Resolved (2) Acute respiratory failure Status: Acute (3) Altered mental status Status: Deleted (4) Pleural effusion, bilateral Status: Acute (5) Pneumonia Status: Acute (6) Seizure disorder Status: Suspected (7) Encephalopathy Status: Acute
[2017-11-21] MEDS: metroNIDAZOLE 500mg/100ml NS 100 ML IVPB SCH ×2 (00:35→10:00)
--- NOTE | 2017-11-21 09:43 | CP.PCM.PN ---
<Yoon Garvin - Last Filed: 11/21/17 09:41> Subjective - Date & Time of Evaluation Date of Evaluation: 11/21/17 Time of Evaluation: 09:41 - Subjective Subjective: PGY 2 progress note for cardiology, Dr. Castro Pt seen and examined at bedside. No acute events overnight. Pt resting comfortably and is at bedside. Open eyes to verbal stimuli. NG tube in place and feedings continued. ROS unobtainable due to mental status. Objective - Vital Signs/Intake and Output Vital Signs (last 24 hours): Temp Pulse Resp BP Pulse Ox 98.5 F 70 18 130/76 97 11/21/17 08:48 11/21/17 08:48 11/21/17 08:48 11/21/17 08:48 11/21/17 08:48 Intake and Output: 11/21/17 11/21/17 06:59 18:59 Intake Total 1140 Output Total 650 Balance 490 - Medications Medications: Current Medications Acetaminophen (Tylenol 650mg/20.3ml Solution Ud) 650 mg PO Q6 PRN PRN Reason: Temperature Last Admin: 11/01/17 09:32 Dose: 650 mg Apixaban (Eliquis) 2.5 mg PO BID [facility] PRN Reason: Protocol Last Admin: 11/20/17 17:14 Dose: 2.5 mg Cholecalciferol (Vitamin D) 5,000 intlu PO DAILY [facility] Last Admin: 11/20/17 09:42 Dose: 5,000 intlu Collagenase (Santyl) 1 applic TOP DAILY [facility] Last Admin: 11/20/17 13:04 Dose: Not Given Digoxin (Lanoxin) 0.125 mg IVP DAILY [facility] Last Admin: 11/20/17 11:45 Dose: 0.125 mg Diltiazem HCl (Cardizem) 60 mg PO Q8 [facility] Last Admin: 11/21/17 00:34 Dose: 60 mg Ferrous Gluconate (Fergon) 324 mg PO DAILY [facility] Last Admin: 11/20/17 09:42 Dose: 324 mg Furosemide (Lasix) 40 mg IVP DAILY [facility] Last Admin: 11/20/17 09:46 Dose: 40 mg Metronidazole (Flagyl 500mg/100ml Ns) 100 mls @ 100 mls/hr IVPB Q8 [facility] PRN Reason: Protocol Last Admin: 11/21/17 00:35 Dose: 100 mls/hr Vancomycin HCl 1 gm/ Sodium (Chloride) 250 mls @ 166.667 mls/hr IVPB Q48H [facility] PRN Reason: Protocol Last Admin: 11/20/17 17:23 Dose: 166.667 mls/hr Lamotrigine (Lamictal) 100 mg PO Q12@0930,2130 [facility] Last Admin: 11/20/17 21:20 Dose: 100 mg Metoprolol Succinate (Toprol Xl) 50 mg PO DAILY [facility] Last Admin: 11/20/17 10:02 Dose: 50 mg Pantoprazole Sodium (Protonix Ec Tab) 40 mg PO DAILY [facility] Last Admin: 11/20/17 09:42 Dose: 40 mg Spironolactone (Aldactone) 25 mg PO BID [facility] Last Admin: 11/20/17 17:14 Dose: 25 mg Vancomycin HCl (Vancocin (Oral/Rectal Use)) 250 mg PO QID [facility] PRN Reason: Protocol Last Admin: 11/20/17 21:21 Dose: 250 mg - Labs Labs: 11/20/17 11:40 11/20/17 11:40 PT 14.9 Seconds (9.8-13.1) H 10/29/17 04:20 INR 1.3 (0.9-1.2) H 10/29/17 04:20 APTT 34.4 Seconds (25.6-37.1) 10/26/17 12:30 - Constitutional Appears: Non-toxic, No Acute Distress - Head Exam Head Exam: ATRAUMATIC - ENT Exam ENT Exam: Mucous Membranes Moist - Respiratory Exam Respiratory Exam: Clear to Ausculation Bilateral. absent: Accessory Muscle Use , Rales, Rhonchi, Wheezes, Respiratory Distress - Cardiovascular Exam Cardiovascular Exam: REGULAR RHYTHM, +S1, +S2. absent: Gallop, Rubs, Murmur - GI/Abdominal Exam GI & Abdominal Exam: Soft, Tenderness, Normal Bowel Sounds. absent: Distended, Firm, Guarding, Rigid, Organomegaly - Extremities Exam Extremities Exam: absent: Pedal Edema, Tenderness - Neurological Exam Neurological Exam: Awake. absent: Oriented x3 - Skin Skin Exam: Dry, Intact, Normal Color, Warm Assessment and Plan - Assessment and Plan (Free Text) Assessment: (1) A-fib Continue digoxin 0.125 qd. Heart rate currently stable Continue Toprol XL 50 mg qd Continue cardizem. Continue anticoagulation with eliquis (2) Aortic valve vegetation Meropenem is discontinued will consider repeating echo to assess the vegetation (3) Pulmonary HTN Continue Revatio 20 mg BID (4) Acute decompensated heart failure BNP trending down Continue spironolactone BID and lasixs 40 mg IVP qd Echo shows EF of 60-65% (5) Left pleura effusion Meropenem discontinued Sputum grew pseudomonas (6) Encephalopathy Mental status waxes and wanes Currently on Lamictal Neurology is following Pt underwent barium swallow. Speech therapist recs pureed diet but states that pt would benefit supplemental nutrition. Currently continuing NG tube feeding (7) Seizure disorder EEG showed seizure like activity Currently on Lamictal. Per neuro note, refuses to increase lamictal dose (8) C diff infection Continue vancomycin and flagyl per ID recs Case will be discussed with attending, Dr. Castro <Varun Castro - Last Filed: 11/21/17 10:36> Objective - Vital Signs/Intake and Output Vital Signs (last 24 hours): Temp Pulse Resp BP Pulse Ox 98.5 F 70 18 130/76 97 11/21/17 08:48 11/21/17 10:09 11/21/17 08:48 11/21/17 10:09 11/21/17 08:48 Intake and Output: 11/21/17 11/21/17 06:59 18:59 Intake Total 1140 Output Total 650 Balance 490 - Medications Medications: Current Medications Acetaminophen (Tylenol 650mg/20.3ml Solution Ud) 650 mg PO Q6 PRN PRN Reason: Temperature Last Admin: 11/01/17 09:32 Dose: 650 mg Apixaban (Eliquis) 2.5 mg PO BID [facility] PRN Reason: Protocol Last Admin: 11/21/17 10:08 Dose: 2.5 mg Cholecalciferol (Vitamin D) 5,000 intlu PO DAILY [facility] Last Admin: 11/21/17 10:10 Dose: 5,000 intlu Collagenase (Santyl) 1 applic TOP DAILY [facility] Last Admin: 11/20/17 13:04 Dose: Not Given Digoxin (Lanoxin) 0.125 mg IVP DAILY [facility] Last Admin: 11/21/17 10:10 Dose: 0.125 mg Diltiazem HCl (Cardizem) 60 mg PO Q8 [facility] Last Admin: 11/21/17 10:08 Dose: 60 mg Ferrous Gluconate (Fergon) 324 mg PO DAILY [facility] Last Admin: 11/21/17 10:08 Dose: 324 mg Furosemide (Lasix) 40 mg IVP DAILY [facility] Last Admin: 11/21/17 10:09 Dose: 40 mg Metronidazole (Flagyl 500mg/100ml Ns) 100 mls @ 100 mls/hr IVPB Q8 [facility] PRN Reason: Protocol Last Admin: 11/21/17 10:00 Dose: 100 mls/hr Vancomycin HCl 1 gm/ Sodium (Chloride) 250 mls @ 166.667 mls/hr IVPB Q48H [facility] PRN Reason: Protocol Last Admin: 11/20/17 17:23 Dose: 166.667 mls/hr Lamotrigine (Lamictal) 100 mg PO Q12@0930,2130 [facility] Last Admin: 11/21/17 10:08 Dose: 100 mg Metoprolol Succinate (Toprol Xl) 50 mg PO DAILY [facility] Last Admin: 11/21/17 10:09 Dose: 50 mg Pantoprazole Sodium (Protonix Ec Tab) 40 mg PO DAILY [facility] Last Admin: 11/21/17 10:09 Dose: 40 mg Spironolactone (Aldactone) 25 mg PO BID [facility] Last Admin: 11/21/17 10:08 Dose: 25 mg Vancomycin HCl (Vancocin (Oral/Rectal Use)) 250 mg PO QID [facility] PRN Reason: Protocol Last Admin: 11/21/17 10:12 Dose: 250 mg - Labs Labs: 11/20/17 11:40 11/20/17 11:40 PT 14.9 Seconds (9.8-13.1) H 10/29/17 04:20 INR 1.3 (0.9-1.2) H 10/29/17 04:20 APTT 34.4 Seconds (25.6-37.1) 10/26/17 12:30 Assessment and Plan (1) A-fib Status: Chronic (2) Acute on chronic diastolic (congestive) heart failure Status: Chronic (3) Acute respiratory failure with hypoxia Status: Acute (4) Altered mental status Status: Deleted (5) HTN (hypertension) Status: Chronic (6) Seizure disorder Status: Chronic (7) CANDELARIA (acute kidney injury) Status: Resolved (8) Encephalopathy Status: Acute (9) Hypothermia Status: Deleted (10) Pleural effusion, bilateral Status: Acute (11) Supratherapeutic international normalized ratio (INR) Status: Acute (12) Acute decompensated heart failure Status: Acute (13) Atrial fibrillation with RVR Status: Acute Attending/Attestation - Attestation I have personally seen and examined this patient.: Yes I have fully participated in the care of the patient.: Yes I have reviewed all pertinent clinical information, including history, physical exam and plan: Yes
[2017-11-21] MEDS: Metoprolol Succinate 50 mg XL Tab PO SCH (10:09)
[2017-11-21] MEDS: Pantoprazole 40 mg EC Tab PO SCH (10:09)
[2017-11-21] MEDS: Digoxin 500 mcg/2ml (0.5 mg/2ml) Inj IVP SCH (10:10)
[2017-11-21] MEDS: Cholecalciferol 1,000 INTLU TAB PO SCH (10:10)
[2017-11-21] MEDS: Vancomycin 500 mg (Oral/Rectal USE) PO SCH ×4 (10:12→22:19)
--- NOTE | 2017-11-21 13:48 | CP.PCM.PN ---
Subjective - Date & Time of Evaluation Date of Evaluation: 11/21/17 Time of Evaluation: 10:00 - Subjective Subjective: F/U Respiratory Failure. No AD , eating with help Objective - Vital Signs/Intake and Output Vital Signs (last 24 hours): Temp Pulse Resp BP Pulse Ox 98.0 F 87 20 103/62 98 11/21/17 12:36 11/21/17 12:36 11/21/17 12:36 11/21/17 12:36 11/21/17 12:36 Intake and Output: 11/21/17 11/21/17 06:59 18:59 Intake Total 1140 Output Total 650 Balance 490 - Medications Medications: Current Medications Acetaminophen (Tylenol 650mg/20.3ml Solution Ud) 650 mg PO Q6 PRN PRN Reason: Temperature Last Admin: 11/01/17 09:32 Dose: 650 mg Apixaban (Eliquis) 2.5 mg PO BID [facility] PRN Reason: Protocol Last Admin: 11/21/17 10:08 Dose: 2.5 mg Cholecalciferol (Vitamin D) 5,000 intlu PO DAILY [facility] Last Admin: 11/21/17 10:10 Dose: 5,000 intlu Collagenase (Santyl) 1 applic TOP DAILY [facility] Last Admin: 11/20/17 13:04 Dose: Not Given Digoxin (Lanoxin) 0.125 mg IVP DAILY [facility] Last Admin: 11/21/17 10:10 Dose: 0.125 mg Diltiazem HCl (Cardizem) 60 mg PO Q8 [facility] Last Admin: 11/21/17 10:08 Dose: 60 mg Ferrous Gluconate (Fergon) 324 mg PO DAILY [facility] Last Admin: 11/21/17 10:08 Dose: 324 mg Furosemide (Lasix) 40 mg IVP DAILY [facility] Last Admin: 11/21/17 10:09 Dose: 40 mg Metronidazole (Flagyl 500mg/100ml Ns) 100 mls @ 100 mls/hr IVPB Q8 [facility] PRN Reason: Protocol Last Admin: 11/21/17 10:00 Dose: 100 mls/hr Vancomycin HCl 1 gm/ Sodium (Chloride) 250 mls @ 166.667 mls/hr IVPB Q48H [facility] PRN Reason: Protocol Last Admin: 11/20/17 17:23 Dose: 166.667 mls/hr Lamotrigine (Lamictal) 100 mg PO Q12@0930,2130 [facility] Last Admin: 11/21/17 10:08 Dose: 100 mg Metoprolol Succinate (Toprol Xl) 50 mg PO DAILY [facility] Last Admin: 11/21/17 10:09 Dose: 50 mg Pantoprazole Sodium (Protonix Ec Tab) 40 mg PO DAILY [facility] Last Admin: 11/21/17 10:09 Dose: 40 mg Spironolactone (Aldactone) 25 mg PO BID [facility] Last Admin: 11/21/17 10:08 Dose: 25 mg Vancomycin HCl (Vancocin (Oral/Rectal Use)) 250 mg PO QID [facility] PRN Reason: Protocol Last Admin: 11/21/17 13:24 Dose: 250 mg - Labs Labs: 11/20/17 11:40 11/20/17 11:40 PT 14.9 Seconds (9.8-13.1) H 10/29/17 04:20 INR 1.3 (0.9-1.2) H 10/29/17 04:20 APTT 34.4 Seconds (25.6-37.1) 10/26/17 12:30 - Constitutional Appears: Chronically Ill - Head Exam Head Exam: NORMAL INSPECTION - Eye Exam Eye Exam: PERRL - ENT Exam Additional comments: Dry scab nose bridge, NG tube - Neck Exam Neck Exam: Normal Inspection - Respiratory Exam Respiratory Exam: Decreased Breath Sounds (at bases) - Cardiovascular Exam Cardiovascular Exam: Irregular Rhythm - GI/Abdominal Exam GI & Abdominal Exam: Soft, Normal Bowel Sounds - Extremities Exam Extremities Exam: Normal Inspection - Back Exam Additional comments: 3 sites in coccyx dry - Neurological Exam Neurological Exam: Alert, CN II-XII Intact Additional comments: Generalized weakness - Psychiatric Exam Psychiatric exam: Normal Affect - Skin Skin Exam: Warm Assessment and Plan (1) Acute respiratory failure with hypoxia Status: Acute (2) Encephalopathy Status: Acute (3) Pleural effusion, bilateral Status: Acute (4) Diastolic CHF, acute on chronic Status: Acute (5) Hx of seizure disorder Status: Chronic (6) A-fib Status: Chronic (7) CANDELARIA (acute kidney injury) Status: Resolved (8) Anemia Status: Chronic (9) Aortic valve vegetation Status: Acute (10) SUSAN (obstructive sleep apnea) Status: Chronic (11) Pulmonary hypertension Status: Chronic (12) Clostridium difficile infection Status: Acute - Assessment and Plan (Free Text) Plan: off High Flow O2 sin yesterday , On N/C 5Lm with POx > 90 , BIPAP at night , Therapist planning Patient to be OOB am , continue current medications
--- NOTE | 2017-11-21 23:30 | CP.PCM.PN ---
Subjective - Date & Time of Evaluation Date of Evaluation: 11/21/17 Time of Evaluation: 22:00 - Subjective Subjective: Patient is doing the same, he is still having Respiratory problems, awake , alert oriented at certain times. No Seizures are reported. He is on Lamictal 100 mg Q 12 hrs and is tolerating it. Objective - Vital Signs/Intake and Output Vital Signs (last 24 hours): Temp Pulse Resp BP Pulse Ox 98.8 F 75 16 123/76 100 11/21/17 20:32 11/21/17 20:32 11/21/17 20:32 11/21/17 20:32 11/21/17 20:32 Intake and Output: 11/21/17 11/22/17 18:59 06:59 Intake Total 1140 Output Total 1100 Balance 40 - Medications Medications: Current Medications Acetaminophen (Tylenol 650mg/20.3ml Solution Ud) 650 mg PO Q6 PRN PRN Reason: Temperature Last Admin: 11/01/17 09:32 Dose: 650 mg Apixaban (Eliquis) 2.5 mg PO BID [facility] PRN Reason: Protocol Last Admin: 11/21/17 16:47 Dose: 2.5 mg Cholecalciferol (Vitamin D) 5,000 intlu PO DAILY [facility] Last Admin: 11/21/17 10:10 Dose: 5,000 intlu Collagenase (Santyl) 1 applic TOP DAILY [facility] Last Admin: 11/20/17 13:04 Dose: Not Given Digoxin (Lanoxin) 0.125 mg IVP DAILY [facility] Last Admin: 11/21/17 10:10 Dose: 0.125 mg Diltiazem HCl (Cardizem) 60 mg PO Q8 [facility] Last Admin: 11/21/17 16:47 Dose: 60 mg Ferrous Gluconate (Fergon) 324 mg PO DAILY [facility] Last Admin: 11/21/17 10:08 Dose: 324 mg Furosemide (Lasix) 40 mg IVP DAILY [facility] Last Admin: 11/21/17 10:09 Dose: 40 mg Metronidazole (Flagyl 500mg/100ml Ns) 100 mls @ 100 mls/hr IVPB Q8 [facility] PRN Reason: Protocol Last Admin: 11/21/17 10:00 Dose: 100 mls/hr Vancomycin HCl 1 gm/ Sodium (Chloride) 250 mls @ 166.667 mls/hr IVPB Q48H [facility] PRN Reason: Protocol Last Admin: 11/20/17 17:23 Dose: 166.667 mls/hr Lamotrigine (Lamictal) 100 mg PO Q12@0930,2130 [facility] Last Admin: 11/21/17 22:19 Dose: 100 mg Metoprolol Succinate (Toprol Xl) 50 mg PO DAILY [facility] Last Admin: 11/21/17 10:09 Dose: 50 mg Pantoprazole Sodium (Protonix Ec Tab) 40 mg PO DAILY [facility] Last Admin: 11/21/17 10:09 Dose: 40 mg Spironolactone (Aldactone) 25 mg PO BID [facility] Last Admin: 11/21/17 16:47 Dose: 25 mg Vancomycin HCl (Vancocin (Oral/Rectal Use)) 250 mg PO QID [facility] PRN Reason: Protocol Last Admin: 11/21/17 22:19 Dose: 250 mg - Labs Labs: 11/20/17 11:40 11/20/17 11:40 PT 14.9 Seconds (9.8-13.1) H 10/29/17 04:20 INR 1.3 (0.9-1.2) H 10/29/17 04:20 APTT 34.4 Seconds (25.6-37.1) 10/26/17 12:30 Assessment and Plan (1) CANDELARIA (acute kidney injury) Status: Resolved (2) Acute respiratory failure Status: Acute (3) Altered mental status Status: Deleted (4) Pleural effusion, bilateral Status: Acute (5) Pneumonia Status: Acute (6) Seizure disorder Status: Suspected (7) Encephalopathy Status: Acute
[2017-11-22] MEDS: metroNIDAZOLE 500mg/100ml NS 100 ML IVPB SCH ×3 (02:19→16:55)
[2017-11-22] MEDS: Vancomycin 500 mg (Oral/Rectal USE) PO SCH ×4 (09:01→21:58)
[2017-11-22] MEDS: Cholecalciferol 1,000 INTLU TAB PO SCH (09:02)
[2017-11-22] MEDS: Pantoprazole 40 mg EC Tab PO SCH (09:03)
[2017-11-22] MEDS: Metoprolol Succinate 50 mg XL Tab PO SCH (09:17)
[2017-11-22] MEDS: Santyl Collagenase OINTMENT TOP SCH (09:59)
[2017-11-22] MEDS: Digoxin 500 mcg/2ml (0.5 mg/2ml) Inj IVP SCH (10:00)
--- NOTE | 2017-11-22 12:45 | CP.PCM.PN ---
Subjective - Date & Time of Evaluation Date of Evaluation: 11/22/17 Time of Evaluation: 11:20 - Subjective Subjective: F/U Respiratory Failure. Awake , talking with his at bedside with short sentences , no AD Objective - Vital Signs/Intake and Output Vital Signs (last 24 hours): Temp Pulse Resp BP Pulse Ox 97.3 F L 84 14 135/70 97 11/22/17 09:18 11/22/17 09:18 11/22/17 09:18 11/22/17 10:05 11/22/17 09:18 Intake and Output: 11/22/17 11/22/17 06:59 18:59 Intake Total 1140 Output Total 1100 Balance 40 - Medications Medications: Current Medications Acetaminophen (Tylenol 650mg/20.3ml Solution Ud) 650 mg PO Q6 PRN PRN Reason: Temperature Last Admin: 11/01/17 09:32 Dose: 650 mg Cholecalciferol (Vitamin D) 5,000 intlu PO DAILY [facility] Last Admin: 11/22/17 09:02 Dose: 5,000 intlu Digoxin (Lanoxin) 0.125 mg IVP DAILY [facility] Last Admin: 11/22/17 10:00 Dose: 0.125 mg Diltiazem HCl (Cardizem) 60 mg PO Q8 [facility] Last Admin: 11/22/17 09:16 Dose: 60 mg Ferrous Gluconate (Fergon) 324 mg PO DAILY [facility] Last Admin: 11/22/17 09:04 Dose: 324 mg Furosemide (Lasix) 40 mg IVP DAILY [facility] Last Admin: 11/22/17 10:05 Dose: 40 mg Metronidazole (Flagyl 500mg/100ml Ns) 100 mls @ 100 mls/hr IVPB Q8 [facility] PRN Reason: Protocol Last Admin: 11/22/17 08:58 Dose: 100 mls/hr Vancomycin HCl 1 gm/ Sodium (Chloride) 250 mls @ 166.667 mls/hr IVPB Q48H [facility] PRN Reason: Protocol Last Admin: 11/20/17 17:23 Dose: 166.667 mls/hr Lamotrigine (Lamictal) 100 mg PO Q12@0930,2130 [facility] Last Admin: 11/22/17 09:03 Dose: 100 mg Metoprolol Succinate (Toprol Xl) 50 mg PO DAILY [facility] Last Admin: 11/22/17 09:17 Dose: 50 mg Pantoprazole Sodium (Protonix Ec Tab) 40 mg PO DAILY [facility] Last Admin: 11/22/17 09:03 Dose: 40 mg Spironolactone (Aldactone) 25 mg PO BID [facility] Last Admin: 11/22/17 09:02 Dose: 25 mg Vancomycin HCl (Vancocin (Oral/Rectal Use)) 250 mg PO QID [facility] PRN Reason: Protocol Last Admin: 11/22/17 09:01 Dose: 250 mg - Labs Labs: 11/20/17 11:40 11/20/17 11:40 PT 14.9 Seconds (9.8-13.1) H 10/29/17 04:20 INR 1.3 (0.9-1.2) H 10/29/17 04:20 APTT 34.4 Seconds (25.6-37.1) 10/26/17 12:30 - Constitutional Appears: Chronically Ill - Head Exam Head Exam: NORMAL INSPECTION - Eye Exam Eye Exam: PERRL - ENT Exam Additional comments: dry scab nose bridge , NG tube - Neck Exam Neck Exam: Normal Inspection - Respiratory Exam Respiratory Exam: Decreased Breath Sounds (af bases), Rhonchi (few at bases) - Cardiovascular Exam Cardiovascular Exam: Irregular Rhythm - GI/Abdominal Exam GI & Abdominal Exam: Soft, Normal Bowel Sounds - Extremities Exam Extremities Exam: Normal Inspection - Back Exam Additional comments: coccyx lesions healing - Neurological Exam Neurological Exam: Awake, CN II-XII Intact (confused , at times mumblling sounds , generalized weakness) Additional comments: generalized weakness - Psychiatric Exam Psychiatric exam: Anxious - Skin Skin Exam: Warm Assessment and Plan (1) Acute respiratory failure with hypoxia Status: Acute (2) Encephalopathy Status: Acute (3) Pleural effusion, bilateral Status: Acute (4) Diastolic CHF, acute on chronic Status: Acute (5) Hx of seizure disorder Status: Chronic (6) A-fib Status: Chronic (7) CANDELARIA (acute kidney injury) Status: Acute (8) Anemia Status: Chronic (9) Aortic valve vegetation Status: Acute (10) SUSAN (obstructive sleep apnea) Status: Chronic (11) Pulmonary hypertension Status: Chronic (12) Clostridium difficile infection Status: Acute - Assessment and Plan (Free Text) Plan: continue Vanco , Zosyn , Cardizem , Metropolol , Digoxin , Furosemide ,PT
--- NOTE | 2017-11-22 13:43 | CP.PCM.PN ---
Subjective - Date & Time of Evaluation Date of Evaluation: 11/22/17 Time of Evaluation: 13:43 - Subjective Subjective: HR stable on digoxin Objective - Vital Signs/Intake and Output Vital Signs (last 24 hours): Temp Pulse Resp BP Pulse Ox 97.3 F L 84 14 135/70 97 11/22/17 09:18 11/22/17 09:18 11/22/17 09:18 11/22/17 10:05 11/22/17 09:18 Intake and Output: 11/22/17 11/22/17 06:59 18:59 Intake Total 1140 Output Total 1100 Balance 40 - Medications Medications: Current Medications Acetaminophen (Tylenol 650mg/20.3ml Solution Ud) 650 mg PO Q6 PRN PRN Reason: Temperature Last Admin: 11/01/17 09:32 Dose: 650 mg Cholecalciferol (Vitamin D) 5,000 intlu PO DAILY [facility] Last Admin: 11/22/17 09:02 Dose: 5,000 intlu Digoxin (Lanoxin) 0.125 mg IVP DAILY [facility] Last Admin: 11/22/17 10:00 Dose: 0.125 mg Diltiazem HCl (Cardizem) 60 mg PO Q8 [facility] Last Admin: 11/22/17 09:16 Dose: 60 mg Ferrous Gluconate (Fergon) 324 mg PO DAILY [facility] Last Admin: 11/22/17 09:04 Dose: 324 mg Furosemide (Lasix) 40 mg IVP DAILY [facility] Last Admin: 11/22/17 10:05 Dose: 40 mg Metronidazole (Flagyl 500mg/100ml Ns) 100 mls @ 100 mls/hr IVPB Q8 [facility] PRN Reason: Protocol Last Admin: 11/22/17 08:58 Dose: 100 mls/hr Vancomycin HCl 1 gm/ Sodium (Chloride) 250 mls @ 166.667 mls/hr IVPB Q48H [facility] PRN Reason: Protocol Last Admin: 11/20/17 17:23 Dose: 166.667 mls/hr Lamotrigine (Lamictal) 100 mg PO Q12@0930,2130 [facility] Last Admin: 11/22/17 09:03 Dose: 100 mg Metoprolol Succinate (Toprol Xl) 50 mg PO DAILY [facility] Last Admin: 11/22/17 09:17 Dose: 50 mg Pantoprazole Sodium (Protonix Ec Tab) 40 mg PO DAILY [facility] Last Admin: 11/22/17 09:03 Dose: 40 mg Spironolactone (Aldactone) 25 mg PO BID [facility] Last Admin: 11/22/17 09:02 Dose: 25 mg Vancomycin HCl (Vancocin (Oral/Rectal Use)) 250 mg PO QID [facility] PRN Reason: Protocol Last Admin: 11/22/17 13:17 Dose: 250 mg - Labs Labs: 11/20/17 11:40 11/20/17 11:40 PT 14.9 Seconds (9.8-13.1) H 10/29/17 04:20 INR 1.3 (0.9-1.2) H 10/29/17 04:20 APTT 34.4 Seconds (25.6-37.1) 10/26/17 12:30 - Constitutional Appears: Well - Head Exam Head Exam: ATRAUMATIC, NORMAL INSPECTION, NORMOCEPHALIC - Eye Exam Eye Exam: EOMI, Normal appearance, PERRL Pupil Exam: NORMAL ACCOMODATION, PERRL - ENT Exam ENT Exam: Mucous Membranes Moist, Normal Exam - Neck Exam Neck Exam: Full ROM, Normal Inspection. absent: Lymphadenopathy - Respiratory Exam Respiratory Exam: Clear to Ausculation Bilateral, NORMAL BREATHING PATTERN - Cardiovascular Exam Cardiovascular Exam: Irregular Rhythm, +S1, +S2, Murmur - GI/Abdominal Exam GI & Abdominal Exam: Soft, Normal Bowel Sounds. absent: Tenderness - Extremities Exam Extremities Exam: Full ROM, Normal Capillary Refill, Normal Inspection. absent : Joint Swelling, Pedal Edema - Back Exam Back Exam: NORMAL INSPECTION - Neurological Exam Neurological Exam: Alert, Awake, CN II-XII Intact - Psychiatric Exam Psychiatric exam: Normal Affect, Normal Mood - Skin Skin Exam: Dry, Intact, Normal Color, Warm Assessment and Plan (1) A-fib Status: Chronic (2) Acute on chronic diastolic (congestive) heart failure Status: Chronic (3) Acute respiratory failure with hypoxia Status: Acute (4) Altered mental status Status: Deleted (5) HTN (hypertension) Status: Chronic (6) Seizure disorder Status: Chronic (7) CANDELARIA (acute kidney injury) Status: Resolved (8) Encephalopathy Status: Acute (9) Hypothermia Status: Deleted (10) Pleural effusion, bilateral Status: Acute (11) Supratherapeutic international normalized ratio (INR) Status: Acute (12) Acute decompensated heart failure Status: Acute (13) Atrial fibrillation with RVR Status: Acute
--- NOTE | 2017-11-22 14:57 | CP.PCM.PN ---
Subjective - Date & Time of Evaluation Date of Evaluation: 11/22/17 Time of Evaluation: 09:00 - Subjective Subjective: remais weak and bedridden responsive at times NAD Dr barr on board extensive discussions held via conference call Objective - Vital Signs/Intake and Output Vital Signs (last 24 hours): Temp Pulse Resp BP Pulse Ox 97.3 F L 84 14 135/70 97 11/22/17 09:18 11/22/17 09:18 11/22/17 09:18 11/22/17 10:05 11/22/17 09:18 Intake and Output: 11/22/17 11/22/17 06:59 18:59 Intake Total 1140 Output Total 1100 Balance 40 - Medications Medications: Current Medications Acetaminophen (Tylenol 650mg/20.3ml Solution Ud) 650 mg PO Q6 PRN PRN Reason: Temperature Last Admin: 11/01/17 09:32 Dose: 650 mg Cholecalciferol (Vitamin D) 5,000 intlu PO DAILY [facility] Last Admin: 11/22/17 09:02 Dose: 5,000 intlu Digoxin (Lanoxin) 0.125 mg IVP DAILY [facility] Last Admin: 11/22/17 10:00 Dose: 0.125 mg Diltiazem HCl (Cardizem) 60 mg PO Q8 [facility] Last Admin: 11/22/17 09:16 Dose: 60 mg Ferrous Gluconate (Fergon) 324 mg PO DAILY [facility] Last Admin: 11/22/17 09:04 Dose: 324 mg Furosemide (Lasix) 40 mg IVP DAILY [facility] Last Admin: 11/22/17 10:05 Dose: 40 mg Metronidazole (Flagyl 500mg/100ml Ns) 100 mls @ 100 mls/hr IVPB Q8 [facility] PRN Reason: Protocol Last Admin: 11/22/17 08:58 Dose: 100 mls/hr Vancomycin HCl 1 gm/ Sodium (Chloride) 250 mls @ 166.667 mls/hr IVPB Q48H [facility] PRN Reason: Protocol Last Admin: 11/20/17 17:23 Dose: 166.667 mls/hr Lamotrigine (Lamictal) 100 mg PO Q12@0930,2130 [facility] Last Admin: 11/22/17 09:03 Dose: 100 mg Metoprolol Succinate (Toprol Xl) 50 mg PO DAILY [facility] Last Admin: 11/22/17 09:17 Dose: 50 mg Pantoprazole Sodium (Protonix Ec Tab) 40 mg PO DAILY [facility] Last Admin: 11/22/17 09:03 Dose: 40 mg Spironolactone (Aldactone) 25 mg PO BID [facility] Last Admin: 11/22/17 09:02 Dose: 25 mg Vancomycin HCl (Vancocin (Oral/Rectal Use)) 250 mg PO QID [facility] PRN Reason: Protocol Last Admin: 11/22/17 13:17 Dose: 250 mg - Labs Labs: 11/20/17 11:40 11/20/17 11:40 PT 14.9 Seconds (9.8-13.1) H 10/29/17 04:20 INR 1.3 (0.9-1.2) H 10/29/17 04:20 APTT 34.4 Seconds (25.6-37.1) 10/26/17 12:30 - Constitutional Appears: Non-toxic, Confused, Cachectic, Chronically Ill - Head Exam Head Exam: ATRAUMATIC, NORMOCEPHALIC - Eye Exam Eye Exam: PERRL. absent: Scleral icterus - ENT Exam ENT Exam: Mucous Membranes Dry - Neck Exam Neck Exam: absent: Lymphadenopathy - Respiratory Exam Respiratory Exam: Decreased Breath Sounds - Cardiovascular Exam Cardiovascular Exam: REGULAR RHYTHM - GI/Abdominal Exam GI & Abdominal Exam: Distended, Soft - Rectal Exam Rectal Exam: Deferred - Exam Exam: NORMAL INSPECTION - Extremities Exam Extremities Exam: absent: Pedal Edema - Back Exam Back Exam: absent: CVA tenderness (L), CVA tenderness (R) - Neurological Exam Neurological Exam: Alert, Altered, Awake - Psychiatric Exam Psychiatric exam: Depressed - Skin Skin Exam: Dry Assessment and Plan (1) CANDELARIA (acute kidney injury) Status: Resolved (2) Acute respiratory failure Status: Acute (3) Altered mental status Status: Deleted (4) Diastolic CHF, acute on chronic Status: Acute (5) Pleural effusion, bilateral Status: Acute (6) Pneumonia Status: Acute (7) Aortic valve vegetation Status: Acute
--- NOTE | 2017-11-22 20:52 | CP.PCM.PN ---
Subjective - Date & Time of Evaluation Date of Evaluation: 11/22/17 Time of Evaluation: 19:45 - Subjective Subjective: Lethargic mostly, awake and interactive, smiley and following commands when his is there. No reported seizures, he is on Lamictal 100 mg Q 12 hrs and we hope the will accept to increase it to 150 mg Q 12 hrs next week in order to be therapeutic. Off spiranolactone ( Aldactone). Normal VS. Objective - Vital Signs/Intake and Output Vital Signs (last 24 hours): Temp Pulse Resp BP Pulse Ox 98.4 F 89 20 128/68 99 11/22/17 19:33 11/22/17 19:33 11/22/17 19:33 11/22/17 19:33 11/22/17 19:33 Intake and Output: 11/22/17 11/23/17 18:59 06:59 Intake Total 1480 Output Total 900 Balance 580 - Medications Medications: Current Medications Acetaminophen (Tylenol 650mg/20.3ml Solution Ud) 650 mg PO Q6 PRN PRN Reason: Temperature Last Admin: 11/01/17 09:32 Dose: 650 mg Cholecalciferol (Vitamin D) 5,000 intlu PO DAILY [facility] Last Admin: 11/22/17 09:02 Dose: 5,000 intlu Digoxin (Lanoxin) 0.125 mg IVP DAILY [facility] Last Admin: 11/22/17 10:00 Dose: 0.125 mg Diltiazem HCl (Cardizem) 60 mg PO Q8 [facility] Last Admin: 11/22/17 16:48 Dose: 60 mg Furosemide (Lasix) 40 mg IVP DAILY [facility] Last Admin: 11/22/17 10:05 Dose: 40 mg Metronidazole (Flagyl 500mg/100ml Ns) 100 mls @ 100 mls/hr IVPB Q8 [facility] PRN Reason: Protocol Last Admin: 11/22/17 16:55 Dose: 100 mls/hr Vancomycin HCl 1 gm/ Sodium (Chloride) 250 mls @ 166.667 mls/hr IVPB Q48H [facility] PRN Reason: Protocol Last Admin: 11/22/17 15:51 Dose: 166.667 mls/hr Lamotrigine (Lamictal) 100 mg PO Q12@0930,2130 [facility] Last Admin: 11/22/17 09:03 Dose: 100 mg Metoprolol Succinate (Toprol Xl) 50 mg PO DAILY [facility] Last Admin: 11/22/17 09:17 Dose: 50 mg Pantoprazole Sodium (Protonix Ec Tab) 40 mg PO DAILY [facility] Last Admin: 11/22/17 09:03 Dose: 40 mg Vancomycin HCl (Vancocin (Oral/Rectal Use)) 250 mg PO QID [facility] PRN Reason: Protocol Last Admin: 11/22/17 16:47 Dose: 250 mg - Labs Labs: 11/20/17 11:40 11/20/17 11:40 PT 14.9 Seconds (9.8-13.1) H 10/29/17 04:20 INR 1.3 (0.9-1.2) H 10/29/17 04:20 APTT 34.4 Seconds (25.6-37.1) 10/26/17 12:30 Assessment and Plan (1) CANDELARIA (acute kidney injury) Status: Resolved (2) Acute respiratory failure Status: Acute (3) Altered mental status Status: Deleted (4) Pleural effusion, bilateral Status: Acute (5) Pneumonia Status: Acute (6) Seizure disorder Status: Suspected (7) Encephalopathy Status: Acute
[2017-11-23] MEDS: metroNIDAZOLE 500mg/100ml NS 100 ML IVPB SCH ×4 (01:32→17:18)
[2017-11-23] MEDS: Metoprolol Succinate 50 mg XL Tab PO SCH (10:04)
[2017-11-23] MEDS: Pantoprazole 40 mg EC Tab PO SCH (10:04)
[2017-11-23] MEDS: Vancomycin 500 mg (Oral/Rectal USE) PO SCH ×3 (10:06→22:47)
[2017-11-23] MEDS: Cholecalciferol 1,000 INTLU TAB PO SCH (10:09)
[2017-11-23] MEDS: Digoxin 500 mcg/2ml (0.5 mg/2ml) Inj IVP SCH (10:16)
[2017-11-23] MEDS: Lactobacillus Acidophilus 500 MU Cap PO SCH (17:17)
--- NOTE | 2017-11-23 20:29 | CP.PCM.PN ---
Subjective - Date & Time of Evaluation Date of Evaluation: 11/23/17 Time of Evaluation: 19:40 - Subjective Subjective: Patient is awake, alert, oriented X 3 with a good memory X 3. He talks minimally, slowly and weakly. The is complaining that he is lethargic many hours a day and that he leans to the left side in the bed and that he was falling to the left prior to his current admission. She was told that his weakness is due to his infection, respiratory insufficiency and his CHF, his HTN, his infection, his cardiac Aortic valve vegetations and his stay for many weeks at the hospital which is causing him unhappiness and depression. She was told that after his recovery from his current condition we will perform CT Scan of his C Spine, T Spine and LS Spine to R/O A Radiculopathy. He had already a negative CT Brain and negative carotid Doppler which has ruled out a CVA. He has a seizure disorder and Lamictal needs to be increased soon to 150 mg Q 12hrs. She still wants to reduce his lamictal to 50 mg Q 12 hrs as she thinks that the cause of all his problems of weakness and lethargy is the Lamictal 100 mg Q 12 hrs. She was explained that his EEG showed active seizure discharges on 2 different EEG Studies lately. Objective - Vital Signs/Intake and Output Vital Signs (last 24 hours): Temp Pulse Resp BP Pulse Ox 97.5 F L 68 20 124/63 100 11/23/17 20:04 11/23/17 20:04 11/23/17 20:04 11/23/17 20:04 11/23/17 20:04 Intake and Output: 11/23/17 11/24/17 18:59 06:59 Intake Total 2440 Balance 2440 - Medications Medications: Current Medications Cholecalciferol (Vitamin D) 5,000 intlu PO DAILY [facility] Last Admin: 11/23/17 10:09 Dose: 5,000 intlu Digoxin (Lanoxin) 0.125 mg IVP DAILY [facility] Last Admin: 11/23/17 10:16 Dose: 0.125 mg Diltiazem HCl (Cardizem) 60 mg PO Q8 [facility] Last Admin: 11/23/17 17:17 Dose: 60 mg Furosemide (Lasix) 40 mg IVP DAILY [facility] Last Admin: 11/23/17 10:01 Dose: 40 mg Metronidazole (Flagyl 500mg/100ml Ns) 100 mls @ 100 mls/hr IVPB Q8 [facility] PRN Reason: Protocol Last Admin: 11/23/17 17:18 Dose: 100 mls/hr Vancomycin HCl 1 gm/ Sodium (Chloride) 250 mls @ 166.667 mls/hr IVPB Q48H [facility] PRN Reason: Protocol Last Admin: 11/22/17 15:51 Dose: 166.667 mls/hr Lactobacillus Acidophilus (Bacid Acidophilus) 1 cap PO BID [facility] Last Admin: 11/23/17 17:17 Dose: 1 cap Lamotrigine (Lamictal) 100 mg PO Q12@0930,2130 [facility] Last Admin: 11/23/17 10:00 Dose: 100 mg Metoprolol Succinate (Toprol Xl) 50 mg PO DAILY [facility] Last Admin: 11/23/17 10:04 Dose: 50 mg Pantoprazole Sodium (Protonix Ec Tab) 40 mg PO DAILY [facility] Last Admin: 11/23/17 10:04 Dose: 40 mg Vancomycin HCl (Vancocin (Oral/Rectal Use)) 250 mg PO Q6 [facility] PRN Reason: Protocol Last Admin: 11/23/17 17:19 Dose: 250 mg - Labs Labs: 11/20/17 11:40 11/20/17 11:40 PT 14.9 Seconds (9.8-13.1) H 10/29/17 04:20 INR 1.3 (0.9-1.2) H 10/29/17 04:20 APTT 34.4 Seconds (25.6-37.1) 10/26/17 12:30 Assessment and Plan (1) CANDELARIA (acute kidney injury) Status: Resolved (2) Acute respiratory failure Status: Acute (3) Altered mental status Status: Deleted (4) Pleural effusion, bilateral Status: Acute (5) Pneumonia Status: Acute (6) Seizure disorder Status: Suspected (7) Encephalopathy Status: Acute
[2017-11-24] MEDS: metroNIDAZOLE 500mg/100ml NS 100 ML IVPB SCH ×3 (01:11→18:01)
[2017-11-24] MEDS: Vancomycin 500 mg (Oral/Rectal USE) PO SCH ×4 (05:11→22:33)
[2017-11-24] MEDS: Pantoprazole 40 mg EC Tab PO SCH (10:15)
[2017-11-24] MEDS: Metoprolol Succinate 50 mg XL Tab PO SCH (10:16)
[2017-11-24] MEDS: Cholecalciferol 1,000 INTLU TAB PO SCH (10:17)
[2017-11-24] MEDS: Lactobacillus Acidophilus 500 MU Cap PO SCH ×2 (10:25→17:52)
[2017-11-24] MEDS: Digoxin 500 mcg/2ml (0.5 mg/2ml) Inj IVP SCH (10:32)
--- NOTE | 2017-11-24 12:10 | CP.PCM.PN ---
Subjective - Date & Time of Evaluation Date of Evaluation: 11/24/17 Time of Evaluation: 09:50 - Subjective Subjective: F/U respiratory Failure. Pt awake, no A/D, talking with short sentences. Objective - Vital Signs/Intake and Output Vital Signs (last 24 hours): Temp Pulse Resp BP Pulse Ox 97.9 F 83 18 143/66 99 11/24/17 08:21 11/24/17 10:16 11/24/17 08:21 11/24/17 10:16 11/24/17 08:21 Intake and Output: 11/24/17 11/24/17 06:59 18:59 Intake Total 1140 Output Total 600 Balance 540 - Medications Medications: Current Medications Cholecalciferol (Vitamin D) 5,000 intlu PO DAILY [facility] Last Admin: 11/24/17 10:17 Dose: 5,000 intlu Digoxin (Lanoxin) 0.125 mg IVP DAILY [facility] Last Admin: 11/24/17 10:32 Dose: 0.125 mg Diltiazem HCl (Cardizem) 60 mg PO Q8 [facility] Last Admin: 11/24/17 10:12 Dose: 60 mg Furosemide (Lasix) 40 mg IVP DAILY [facility] Last Admin: 11/24/17 10:14 Dose: 40 mg Metronidazole (Flagyl 500mg/100ml Ns) 100 mls @ 100 mls/hr IVPB Q8 [facility] PRN Reason: Protocol Last Admin: 11/24/17 10:31 Dose: 100 mls/hr Vancomycin HCl 1 gm/ Sodium (Chloride) 250 mls @ 166.667 mls/hr IVPB Q48H [facility] PRN Reason: Protocol Last Admin: 11/22/17 15:51 Dose: 166.667 mls/hr Lactobacillus Acidophilus (Bacid Acidophilus) 1 cap PO BID [facility] Last Admin: 11/24/17 10:25 Dose: 1 cap Lamotrigine (Lamictal) 100 mg PO Q12@0930,2130 [facility] Last Admin: 11/24/17 10:14 Dose: 100 mg Metoprolol Succinate (Toprol Xl) 50 mg PO DAILY [facility] Last Admin: 11/24/17 10:16 Dose: 50 mg Pantoprazole Sodium (Protonix Ec Tab) 40 mg PO DAILY [facility] Last Admin: 11/24/17 10:15 Dose: 40 mg Vancomycin HCl (Vancocin (Oral/Rectal Use)) 250 mg PO Q6 [facility] PRN Reason: Protocol Last Admin: 11/24/17 10:16 Dose: 250 mg - Labs Labs: 11/20/17 11:40 11/20/17 11:40 PT 14.9 Seconds (9.8-13.1) H 10/29/17 04:20 INR 1.3 (0.9-1.2) H 10/29/17 04:20 APTT 34.4 Seconds (25.6-37.1) 10/26/17 12:30 - Constitutional Appears: Chronically Ill - Head Exam Head Exam: NORMAL INSPECTION - Eye Exam Eye Exam: PERRL - ENT Exam Additional comments: Dry scab nose bridge. - Neck Exam Neck Exam: Normal Inspection - Respiratory Exam Respiratory Exam: Decreased Breath Sounds (at bases), Rhonchi (at bases) - Cardiovascular Exam Cardiovascular Exam: Irregular Rhythm - GI/Abdominal Exam GI & Abdominal Exam: Soft, Normal Bowel Sounds - Extremities Exam Extremities Exam: Normal Inspection - Back Exam Additional comments: Coccyx lesions healing - Neurological Exam Neurological Exam: Awake, CN II-XII Intact Additional comments: Confused, at times mumbling sounds, generalized weakness. - Psychiatric Exam Psychiatric exam: Anxious - Skin Skin Exam: Warm Assessment and Plan (1) Acute respiratory failure with hypoxia Status: Acute (2) Encephalopathy Status: Acute (3) Pleural effusion, bilateral Status: Acute (4) Diastolic CHF, acute on chronic Status: Acute (5) Hx of seizure disorder Status: Chronic (6) A-fib Status: Chronic (7) CANDELARIA (acute kidney injury) Status: Acute (8) Anemia Status: Chronic (9) Aortic valve vegetation Status: Acute (10) SUSAN (obstructive sleep apnea) Status: Chronic (11) Pulmonary hypertension Status: Chronic (12) Clostridium difficile infection Status: Acute - Assessment and Plan (Free Text) Plan: N/C 4 L/M, continue current Tx and pT.
--- NOTE | 2017-11-24 13:42 | CP.PCM.PN ---
Subjective - Date & Time of Evaluation Date of Evaluation: 11/24/17 Time of Evaluation: 09:00 - Subjective Subjective: afeb nad mental status waxes / wanes iv vanco reordered Objective - Vital Signs/Intake and Output Vital Signs (last 24 hours): Temp Pulse Resp BP Pulse Ox 97.9 F 83 18 143/66 99 11/24/17 08:21 11/24/17 10:16 11/24/17 08:21 11/24/17 10:16 11/24/17 08:21 Intake and Output: 11/24/17 11/24/17 06:59 18:59 Intake Total 1140 Output Total 600 Balance 540 - Medications Medications: Current Medications Cholecalciferol (Vitamin D) 5,000 intlu PO DAILY [facility] Last Admin: 11/24/17 10:17 Dose: 5,000 intlu Digoxin (Lanoxin) 0.125 mg IVP DAILY [facility] Last Admin: 11/24/17 10:32 Dose: 0.125 mg Diltiazem HCl (Cardizem) 60 mg PO Q8 [facility] Last Admin: 11/24/17 10:12 Dose: 60 mg Furosemide (Lasix) 40 mg IVP DAILY [facility] Last Admin: 11/24/17 10:14 Dose: 40 mg Metronidazole (Flagyl 500mg/100ml Ns) 100 mls @ 100 mls/hr IVPB Q8 [facility] PRN Reason: Protocol Last Admin: 11/24/17 10:31 Dose: 100 mls/hr Vancomycin HCl 1 gm/ Sodium (Chloride) 250 mls @ 166.667 mls/hr IVPB Q48H [facility] PRN Reason: Protocol Last Admin: 11/22/17 15:51 Dose: 166.667 mls/hr Lactobacillus Acidophilus (Bacid Acidophilus) 1 cap PO BID [facility] Last Admin: 11/24/17 10:25 Dose: 1 cap Lamotrigine (Lamictal) 100 mg PO Q12@0930,2130 [facility] Last Admin: 11/24/17 10:14 Dose: 100 mg Metoprolol Succinate (Toprol Xl) 50 mg PO DAILY [facility] Last Admin: 11/24/17 10:16 Dose: 50 mg Pantoprazole Sodium (Protonix Ec Tab) 40 mg PO DAILY [facility] Last Admin: 11/24/17 10:15 Dose: 40 mg Vancomycin HCl (Vancocin (Oral/Rectal Use)) 250 mg PO Q6 [facility] PRN Reason: Protocol Last Admin: 11/24/17 10:16 Dose: 250 mg - Labs Labs: 11/20/17 11:40 11/20/17 11:40 PT 14.9 Seconds (9.8-13.1) H 10/29/17 04:20 INR 1.3 (0.9-1.2) H 10/29/17 04:20 APTT 34.4 Seconds (25.6-37.1) 10/26/17 12:30 - Constitutional Appears: Non-toxic, Chronically Ill - Head Exam Head Exam: NORMOCEPHALIC - Eye Exam Eye Exam: PERRL. absent: Scleral icterus - ENT Exam ENT Exam: Mucous Membranes Dry - Neck Exam Neck Exam: absent: Lymphadenopathy - Respiratory Exam Respiratory Exam: Decreased Breath Sounds - Cardiovascular Exam Cardiovascular Exam: REGULAR RHYTHM - GI/Abdominal Exam GI & Abdominal Exam: Distended, Soft - Rectal Exam Rectal Exam: Deferred - Exam Exam: NORMAL INSPECTION - Extremities Exam Extremities Exam: absent: Pedal Edema - Back Exam Back Exam: absent: CVA tenderness (L), CVA tenderness (R) - Neurological Exam Neurological Exam: Altered - Psychiatric Exam Psychiatric exam: Depressed Assessment and Plan (1) CANDELARIA (acute kidney injury) Status: Resolved (2) Acute respiratory failure Status: Acute (3) Altered mental status Status: Deleted (4) Diastolic CHF, acute on chronic Status: Acute (5) Pleural effusion, bilateral Status: Acute (6) Pneumonia Status: Acute (7) Aortic valve vegetation Status: Acute
--- NOTE | 2017-11-24 23:44 | CP.PCM.PN ---
Subjective - Date & Time of Evaluation Date of Evaluation: 11/24/17 Time of Evaluation: 21:25 - Subjective Subjective: Today he is more lethargic according to the who is interested in reducing his Lamictal from 100 mg Q 12 hrs down to 50 mg Q12 hrs, thinking that this will make more awake and back to his baseline prior to his current admission. She was told that we will need to increase his Lamictal to a therapeutic dose at 150 mg Q 12hrs to control his seizures and later on we can go up to 250 mg Q 12hrs gradually. She complains about a scrotal rash that appeared recently and she is worried that this might be the allergic reaction that might be caused by Lamictal. It was explained to her that the generalized rash should involve the whole body including his whole skin and his mucous membranes of the eyes, the nose, the mouth, the urethra and the anus in order to be considered as Alexander Rocky Rash or even the beginning of an Erythema Multiform. The scrotal rash needs to be treated by local ointments and creams after washing and cleaning the area. There is no seizures and his condition is improving gradually. Objective - Vital Signs/Intake and Output Vital Signs (last 24 hours): Temp Pulse Resp BP Pulse Ox 97.3 F L 68 20 134/71 98 11/24/17 19:58 11/24/17 19:58 11/24/17 19:58 11/24/17 19:58 11/24/17 19:58 Intake and Output: 11/24/17 11/25/17 18:59 06:59 Intake Total 3310 Output Total 1801 Balance 1509 - Medications Medications: Current Medications Cholecalciferol (Vitamin D) 5,000 intlu PO DAILY [facility] Last Admin: 11/24/17 10:17 Dose: 5,000 intlu Digoxin (Lanoxin) 0.125 mg IVP DAILY [facility] Last Admin: 11/24/17 10:32 Dose: 0.125 mg Diltiazem HCl (Cardizem) 60 mg PO Q8 [facility] Last Admin: 11/24/17 17:52 Dose: 60 mg Furosemide (Lasix) 40 mg IVP DAILY [facility] Last Admin: 11/24/17 10:14 Dose: 40 mg Metronidazole (Flagyl 500mg/100ml Ns) 100 mls @ 100 mls/hr IVPB Q8 [facility] PRN Reason: Protocol Last Admin: 11/24/17 18:01 Dose: 100 mls/hr Vancomycin HCl 1 gm/ Sodium (Chloride) 250 mls @ 166.667 mls/hr IVPB Q48H [facility] PRN Reason: Protocol Last Admin: 11/24/17 15:26 Dose: 166.667 mls/hr Lactobacillus Acidophilus (Bacid Acidophilus) 1 cap PO BID [facility] Last Admin: 11/24/17 17:52 Dose: 1 cap Lamotrigine (Lamictal) 100 mg PO Q12@0930,2130 [facility] Last Admin: 11/24/17 22:33 Dose: 100 mg Metoprolol Succinate (Toprol Xl) 50 mg PO DAILY [facility] Last Admin: 11/24/17 10:16 Dose: 50 mg Pantoprazole Sodium (Protonix Ec Tab) 40 mg PO DAILY [facility] Last Admin: 11/24/17 10:15 Dose: 40 mg Vancomycin HCl (Vancocin (Oral/Rectal Use)) 250 mg PO Q6 [facility] PRN Reason: Protocol Last Admin: 11/24/17 22:33 Dose: 250 mg - Labs Labs: 11/20/17 11:40 11/20/17 11:40 PT 14.9 Seconds (9.8-13.1) H 10/29/17 04:20 INR 1.3 (0.9-1.2) H 10/29/17 04:20 APTT 34.4 Seconds (25.6-37.1) 10/26/17 12:30 Assessment and Plan (1) CANDELARIA (acute kidney injury) Status: Resolved (2) Acute respiratory failure Status: Acute (3) Altered mental status Status: Deleted (4) Pleural effusion, bilateral Status: Acute (5) Pneumonia Status: Acute (6) Seizure disorder Status: Suspected (7) Encephalopathy Status: Acute
[2017-11-25] MEDS: metroNIDAZOLE 500mg/100ml NS 100 ML IVPB SCH ×3 (01:39→16:27)
[2017-11-25] MEDS: Vancomycin 500 mg (Oral/Rectal USE) PO SCH ×4 (05:10→22:57)
[2017-11-25] MEDS: Lactobacillus Acidophilus 500 MU Cap PO SCH ×2 (09:16→16:26)
[2017-11-25] MEDS: Metoprolol Succinate 50 mg XL Tab PO SCH (09:19)
[2017-11-25] MEDS: Pantoprazole 40 mg EC Tab PO SCH (09:19)
[2017-11-25] MEDS: Cholecalciferol 1,000 INTLU TAB PO SCH (09:19)
[2017-11-25] MEDS: Digoxin 500 mcg/2ml (0.5 mg/2ml) Inj IVP SCH (09:26)
--- NOTE | 2017-11-25 17:53 | CP.PCM.PN ---
Subjective - Date & Time of Evaluation Date of Evaluation: 11/25/17 Time of Evaluation: 10:30 - Subjective Subjective: F/U Respiratory failure Pt awake, answer question, at bedside. Objective - Vital Signs/Intake and Output Vital Signs (last 24 hours): Temp Pulse Resp BP Pulse Ox 97.9 F 80 18 116/72 99 11/25/17 15:44 11/25/17 16:27 11/25/17 15:44 11/25/17 16:27 11/25/17 15:44 Intake and Output: 11/25/17 11/25/17 06:59 18:59 Intake Total 1140 Output Total 800 Balance 340 - Medications Medications: Current Medications Cholecalciferol (Vitamin D) 5,000 intlu PO DAILY [facility] Last Admin: 11/25/17 09:19 Dose: 5,000 intlu Digoxin (Lanoxin) 0.125 mg IVP DAILY [facility] Last Admin: 11/25/17 09:26 Dose: 0.125 mg Diltiazem HCl (Cardizem) 60 mg PO Q8 [facility] Last Admin: 11/25/17 16:27 Dose: 60 mg Furosemide (Lasix) 40 mg IVP DAILY [facility] Last Admin: 11/25/17 09:18 Dose: 40 mg Metronidazole (Flagyl 500mg/100ml Ns) 100 mls @ 100 mls/hr IVPB Q8 [facility] PRN Reason: Protocol Last Admin: 11/25/17 16:27 Dose: 100 mls/hr Vancomycin HCl 1 gm/ Sodium (Chloride) 250 mls @ 166.667 mls/hr IVPB Q48H [facility] PRN Reason: Protocol Last Admin: 11/24/17 15:26 Dose: 166.667 mls/hr Lactobacillus Acidophilus (Bacid Acidophilus) 1 cap PO BID [facility] Last Admin: 11/25/17 16:26 Dose: 1 cap Lamotrigine (Lamictal) 100 mg PO Q12@0930,2130 [facility] Last Admin: 11/25/17 09:18 Dose: 100 mg Metoprolol Succinate (Toprol Xl) 50 mg PO DAILY [facility] Last Admin: 11/25/17 09:19 Dose: 50 mg Pantoprazole Sodium (Protonix Ec Tab) 40 mg PO DAILY [facility] Last Admin: 11/25/17 09:19 Dose: 40 mg Vancomycin HCl (Vancocin (Oral/Rectal Use)) 250 mg PO Q6 [facility] PRN Reason: Protocol Last Admin: 11/25/17 16:28 Dose: 250 mg - Labs Labs: 11/20/17 11:40 11/20/17 11:40 PT 14.9 Seconds (9.8-13.1) H 10/29/17 04:20 INR 1.3 (0.9-1.2) H 10/29/17 04:20 APTT 34.4 Seconds (25.6-37.1) 10/26/17 12:30 - Constitutional Appears: Chronically Ill - Head Exam Head Exam: NORMAL INSPECTION - Eye Exam Eye Exam: PERRL - ENT Exam Additional comments: Dry scab nose bridge, NG tube - Neck Exam Neck Exam: Normal Inspection - Respiratory Exam Respiratory Exam: Decreased Breath Sounds (at bases), Rhonchi (few at bases) - Cardiovascular Exam Cardiovascular Exam: Irregular Rhythm - GI/Abdominal Exam GI & Abdominal Exam: Soft, Normal Bowel Sounds - Extremities Exam Extremities Exam: Normal Inspection - Back Exam Additional comments: Coccyx lesions healing - Neurological Exam Neurological Exam: Awake, CN II-XII Intact Additional comments: Confused, at times mumbling sounds, generalized weakness - Psychiatric Exam Psychiatric exam: Anxious - Skin Skin Exam: Warm Assessment and Plan (1) Acute respiratory failure with hypoxia Status: Acute (2) Encephalopathy Status: Acute (3) Pleural effusion, bilateral Status: Acute (4) Diastolic CHF, acute on chronic Status: Acute (5) Hx of seizure disorder Status: Chronic (6) A-fib Status: Chronic (7) CANDELARIA (acute kidney injury) Status: Resolved (8) Anemia Status: Chronic (9) Aortic valve vegetation Status: Acute (10) SUSAN (obstructive sleep apnea) Status: Chronic (11) Pulmonary hypertension Status: Chronic (12) Clostridium difficile infection Status: Acute - Assessment and Plan (Free Text) Plan: Continue NC, BIPAP, PT and rest of Tx.
[2017-11-25] MEDS ORDERED: Chlorhexidine Gluconate 1 APPL/PKT TP ONE (22:03)
--- NOTE | 2017-11-25 23:59 | CP.PCM.PN ---
Subjective - Date & Time of Evaluation Date of Evaluation: 11/25/17 Time of Evaluation: 21:00 - Subjective Subjective: He is more or less the same, responsive to simple questions, Oriented to date , time and persons. There is no reported seizures. He is on Lamictal 100 mg Q 12 HRS. Normal V.S. Objective - Vital Signs/Intake and Output Vital Signs (last 24 hours): Temp Pulse Resp BP Pulse Ox 98.1 F 75 20 131/81 98 11/25/17 19:08 11/25/17 19:08 11/25/17 19:08 11/25/17 19:08 11/25/17 19:08 Intake and Output: 11/25/17 11/26/17 18:59 06:59 Intake Total 1140 Output Total 800 Balance 340 - Medications Medications: Current Medications Cholecalciferol (Vitamin D) 5,000 intlu PO DAILY [facility] Last Admin: 11/25/17 09:19 Dose: 5,000 intlu Digoxin (Lanoxin) 0.125 mg IVP DAILY [facility] Last Admin: 11/25/17 09:26 Dose: 0.125 mg Diltiazem HCl (Cardizem) 60 mg PO Q8 [facility] Last Admin: 11/25/17 16:27 Dose: 60 mg Furosemide (Lasix) 40 mg IVP DAILY [facility] Last Admin: 11/25/17 09:18 Dose: 40 mg Metronidazole (Flagyl 500mg/100ml Ns) 100 mls @ 100 mls/hr IVPB Q8 [facility] PRN Reason: Protocol Last Admin: 11/25/17 16:27 Dose: 100 mls/hr Vancomycin HCl 1 gm/ Sodium (Chloride) 250 mls @ 166.667 mls/hr IVPB Q48H [facility] PRN Reason: Protocol Last Admin: 11/24/17 15:26 Dose: 166.667 mls/hr Lactobacillus Acidophilus (Bacid Acidophilus) 1 cap PO BID [facility] Last Admin: 11/25/17 16:26 Dose: 1 cap Lamotrigine (Lamictal) 100 mg PO Q12@0930,2130 [facility] Last Admin: 11/25/17 22:59 Dose: 100 mg Metoprolol Succinate (Toprol Xl) 50 mg PO DAILY [facility] Last Admin: 11/25/17 09:19 Dose: 50 mg Pantoprazole Sodium (Protonix Ec Tab) 40 mg PO DAILY [facility] Last Admin: 11/25/17 09:19 Dose: 40 mg Vancomycin HCl (Vancocin (Oral/Rectal Use)) 250 mg PO Q6 [facility] PRN Reason: Protocol Last Admin: 11/25/17 22:57 Dose: 250 mg - Labs Labs: 11/20/17 11:40 11/20/17 11:40 PT 14.9 Seconds (9.8-13.1) H 10/29/17 04:20 INR 1.3 (0.9-1.2) H 10/29/17 04:20 APTT 34.4 Seconds (25.6-37.1) 10/26/17 12:30 Assessment and Plan (1) CANDELARIA (acute kidney injury) Status: Resolved (2) Acute respiratory failure Status: Acute (3) Altered mental status Status: Deleted (4) Pleural effusion, bilateral Status: Acute (5) Pneumonia Status: Acute (6) Seizure disorder Status: Suspected (7) Encephalopathy Status: Acute
[2017-11-26] MEDS: metroNIDAZOLE 500mg/100ml NS 100 ML IVPB SCH ×3 (00:59→16:43)
[2017-11-26] MEDS: Vancomycin 500 mg (Oral/Rectal USE) PO SCH ×4 (04:00→22:20)
[2017-11-26] MEDS: Metoprolol Succinate 50 mg XL Tab PO SCH (09:10)
[2017-11-26] MEDS: Cholecalciferol 1,000 INTLU TAB PO SCH (09:12)
[2017-11-26] MEDS: Pantoprazole 40 mg EC Tab PO SCH (09:59)
[2017-11-26] MEDS: Lactobacillus Acidophilus 500 MU Cap PO SCH ×2 (10:00→16:42)
[2017-11-26] MEDS: Digoxin 500 mcg/2ml (0.5 mg/2ml) Inj IVP SCH (10:00)
--- NOTE | 2017-11-26 15:58 | CP.PCM.PN ---
Subjective - Date & Time of Evaluation Date of Evaluation: 11/26/17 Time of Evaluation: 10:30 - Subjective Subjective: F/U Respiratory Failure. Pt awake, answering questions, follows commands. at bedside. Objective - Vital Signs/Intake and Output Vital Signs (last 24 hours): Temp Pulse Resp BP Pulse Ox 97.2 F L 74 20 119/56 L 100 11/26/17 12:30 11/26/17 12:30 11/26/17 12:30 11/26/17 12:30 11/26/17 12:30 Intake and Output: 11/26/17 11/26/17 06:59 18:59 Intake Total 1140 Output Total 1100 Balance 40 - Medications Medications: Current Medications Cholecalciferol (Vitamin D) 5,000 intlu PO DAILY [facility] Last Admin: 11/26/17 09:12 Dose: 5,000 intlu Digoxin (Lanoxin) 0.125 mg IVP DAILY [facility] Last Admin: 11/26/17 10:00 Dose: 0.125 mg Diltiazem HCl (Cardizem) 60 mg PO Q8 [facility] Last Admin: 11/26/17 09:10 Dose: 60 mg Furosemide (Lasix) 40 mg IVP DAILY [facility] Last Admin: 11/26/17 10:01 Dose: 40 mg Metronidazole (Flagyl 500mg/100ml Ns) 100 mls @ 100 mls/hr IVPB Q8 [facility] PRN Reason: Protocol Last Admin: 11/26/17 09:11 Dose: 100 mls/hr Vancomycin HCl 1 gm/ Sodium (Chloride) 250 mls @ 166.667 mls/hr IVPB Q48H [facility] PRN Reason: Protocol Last Admin: 11/26/17 15:12 Dose: 166.667 mls/hr Lactobacillus Acidophilus (Bacid Acidophilus) 1 cap PO BID [facility] Last Admin: 11/26/17 10:00 Dose: 1 cap Lamotrigine (Lamictal) 100 mg PO Q12@0930,2130 [facility] Last Admin: 11/26/17 09:11 Dose: 100 mg Metoprolol Succinate (Toprol Xl) 50 mg PO DAILY [facility] Last Admin: 11/26/17 09:10 Dose: 50 mg Pantoprazole Sodium (Protonix Ec Tab) 40 mg PO DAILY [facility] Last Admin: 11/26/17 09:59 Dose: Not Given Vancomycin HCl (Vancocin (Oral/Rectal Use)) 250 mg PO Q6 [facility] PRN Reason: Protocol Last Admin: 11/26/17 09:12 Dose: 250 mg - Labs Labs: 11/20/17 11:40 11/20/17 11:40 PT 14.9 Seconds (9.8-13.1) H 10/29/17 04:20 INR 1.3 (0.9-1.2) H 10/29/17 04:20 APTT 34.4 Seconds (25.6-37.1) 10/26/17 12:30 - Constitutional Appears: Chronically Ill - Head Exam Head Exam: NORMAL INSPECTION - Eye Exam Eye Exam: PERRL - ENT Exam Additional comments: Dry scab nose bridge, NG tube - Neck Exam Neck Exam: Normal Inspection - Respiratory Exam Respiratory Exam: Decreased Breath Sounds (at bases), Rhonchi (few at bases) - Cardiovascular Exam Cardiovascular Exam: Irregular Rhythm - GI/Abdominal Exam GI & Abdominal Exam: Soft, Normal Bowel Sounds - Extremities Exam Extremities Exam: Normal Inspection - Back Exam Additional comments: Coccyx lesion healing - Neurological Exam Neurological Exam: Awake, CN II-XII Intact Additional comments: Confused, at times mumbling sounds, generalized weakness. - Psychiatric Exam Psychiatric exam: Anxious - Skin Skin Exam: Warm Assessment and Plan (1) Acute respiratory failure with hypoxia Status: Acute (2) Encephalopathy Status: Acute (3) Pleural effusion, bilateral Status: Resolved (4) Diastolic CHF, acute on chronic Status: Acute (5) Hx of seizure disorder Status: Chronic (6) A-fib Status: Chronic (7) CANDELARIA (acute kidney injury) Status: Resolved (8) Anemia Status: Chronic (9) Aortic valve vegetation Status: Acute (10) SUSAN (obstructive sleep apnea) Status: Chronic (11) Pulmonary hypertension Status: Chronic (12) Clostridium difficile infection Status: Acute - Assessment and Plan (Free Text) Plan: Continue Vanco, Flagyl and rest of Tx, PT, OT.
--- NOTE | 2017-11-26 23:45 | CP.PCM.PN ---
Subjective - Date & Time of Evaluation Date of Evaluation: 11/26/17 Time of Evaluation: 21:00 - Subjective Subjective: His mental status is improving. He is Out Of Bed to Chair and sitting comfortable. 4 persons are needed to put him back in bed. He is receiving 4 Litres Oxygen and is awake, Alert, Oriented X 3. He is not reported to have seizures. He is receiving Lamictal 100 mg Q 12 Hrs. He has Sacral bed sores and scrotal rash for which he is receiving local care and [facility]. Objective - Vital Signs/Intake and Output Vital Signs (last 24 hours): Temp Pulse Resp BP Pulse Ox 97.9 F 65 16 142/68 100 11/26/17 20:16 11/26/17 20:16 11/26/17 20:16 11/26/17 20:16 11/26/17 20:16 Intake and Output: 11/26/17 11/27/17 18:59 06:59 Intake Total 2930 Output Total 2500 Balance 430 - Medications Medications: Current Medications Cholecalciferol (Vitamin D) 5,000 intlu PO DAILY [facility] Last Admin: 11/26/17 09:12 Dose: 5,000 intlu Digoxin (Lanoxin) 0.125 mg IVP DAILY [facility] Last Admin: 11/26/17 10:00 Dose: 0.125 mg Diltiazem HCl (Cardizem) 60 mg PO Q8 [facility] Last Admin: 11/26/17 16:42 Dose: 60 mg Furosemide (Lasix) 40 mg IVP DAILY [facility] Last Admin: 11/26/17 10:01 Dose: 40 mg Metronidazole (Flagyl 500mg/100ml Ns) 100 mls @ 100 mls/hr IVPB Q8 [facility] PRN Reason: Protocol Last Admin: 11/26/17 16:43 Dose: 100 mls/hr Vancomycin HCl 1 gm/ Sodium (Chloride) 250 mls @ 166.667 mls/hr IVPB Q48H [facility] PRN Reason: Protocol Last Admin: 11/26/17 15:12 Dose: 166.667 mls/hr Lactobacillus Acidophilus (Bacid Acidophilus) 1 cap PO BID [facility] Last Admin: 11/26/17 16:42 Dose: 1 cap Lamotrigine (Lamictal) 100 mg PO Q12@0930,2130 [facility] Last Admin: 11/26/17 22:20 Dose: 100 mg Metoprolol Succinate (Toprol Xl) 50 mg PO DAILY [facility] Last Admin: 11/26/17 09:10 Dose: 50 mg Pantoprazole Sodium (Protonix Ec Tab) 40 mg PO DAILY [facility] Last Admin: 11/26/17 09:59 Dose: Not Given Vancomycin HCl (Vancocin (Oral/Rectal Use)) 250 mg PO Q6 [facility] PRN Reason: Protocol Last Admin: 11/26/17 22:20 Dose: 250 mg - Labs Labs: 11/20/17 11:40 11/20/17 11:40 PT 14.9 Seconds (9.8-13.1) H 10/29/17 04:20 INR 1.3 (0.9-1.2) H 10/29/17 04:20 APTT 34.4 Seconds (25.6-37.1) 10/26/17 12:30 Assessment and Plan (1) CANDELARIA (acute kidney injury) Status: Resolved (2) Acute respiratory failure Status: Acute (3) Altered mental status Status: Deleted (4) Pleural effusion, bilateral Status: Resolved (5) Pneumonia Status: Resolved (6) Seizure disorder Status: Suspected (7) Encephalopathy Status: Acute
[2017-11-27] MEDS: metroNIDAZOLE 500mg/100ml NS 100 ML IVPB SCH ×3 (00:51→17:49)
[2017-11-27] MEDS: Vancomycin 500 mg (Oral/Rectal USE) PO SCH ×4 (05:32→22:16)
[2017-11-27] MEDS: Lactobacillus Acidophilus 500 MU Cap PO SCH ×2 (08:56→22:22)
[2017-11-27] MEDS: Cholecalciferol 1,000 INTLU TAB PO SCH (08:57)
[2017-11-27] MEDS: Metoprolol Succinate 50 mg XL Tab PO SCH (09:00)
[2017-11-27] MEDS: Pantoprazole 40 mg EC Tab PO SCH (09:02)
[2017-11-27] MEDS: Digoxin 500 mcg/2ml (0.5 mg/2ml) Inj IVP SCH (09:13)
--- NOTE | 2017-11-27 13:14 | CP.PCM.PN ---
Subjective - Date & Time of Evaluation Date of Evaluation: 11/27/17 Time of Evaluation: 10:00 - Subjective Subjective: slow progress less confused no fever oob at times less diarrhea scrotal swelling as before Objective - Vital Signs/Intake and Output Vital Signs (last 24 hours): Temp Pulse Resp BP Pulse Ox 97.6 F 70 18 123/65 100 11/27/17 12:36 11/27/17 12:36 11/27/17 12:36 11/27/17 12:36 11/27/17 12:36 Intake and Output: 11/27/17 11/27/17 06:59 18:59 Intake Total 1140 Output Total 800 Balance 340 - Medications Medications: Current Medications Cholecalciferol (Vitamin D) 5,000 intlu PO DAILY [facility] Last Admin: 11/27/17 08:57 Dose: 5,000 intlu Digoxin (Lanoxin) 0.125 mg IVP DAILY [facility] Last Admin: 11/27/17 09:13 Dose: 0.125 mg Diltiazem HCl (Cardizem) 60 mg PO Q8 [facility] Last Admin: 11/27/17 09:01 Dose: 60 mg Furosemide (Lasix) 40 mg IVP DAILY [facility] Last Admin: 11/27/17 08:59 Dose: 40 mg Metronidazole (Flagyl 500mg/100ml Ns) 100 mls @ 100 mls/hr IVPB Q8 [facility] PRN Reason: Protocol Last Admin: 11/27/17 09:07 Dose: 100 mls/hr Vancomycin HCl 1 gm/ Sodium (Chloride) 250 mls @ 166.667 mls/hr IVPB Q48H [facility] PRN Reason: Protocol Last Admin: 11/26/17 15:12 Dose: 166.667 mls/hr Lactobacillus Acidophilus (Bacid Acidophilus) 1 cap PO BID [facility] Last Admin: 11/27/17 08:56 Dose: 1 cap Lamotrigine (Lamictal) 100 mg PO Q12@0930,2130 [facility] Last Admin: 11/27/17 09:01 Dose: 100 mg Metoprolol Succinate (Toprol Xl) 50 mg PO DAILY [facility] Last Admin: 11/27/17 09:00 Dose: 50 mg Pantoprazole Sodium (Protonix Ec Tab) 40 mg PO DAILY [facility] Last Admin: 11/27/17 09:02 Dose: 40 mg Vancomycin HCl (Vancocin (Oral/Rectal Use)) 250 mg PO Q6 [facility] PRN Reason: Protocol Last Admin: 11/27/17 09:05 Dose: 250 mg - Labs Labs: 11/20/17 11:40 11/20/17 11:40 PT 14.9 Seconds (9.8-13.1) H 10/29/17 04:20 INR 1.3 (0.9-1.2) H 10/29/17 04:20 APTT 34.4 Seconds (25.6-37.1) 10/26/17 12:30 - Constitutional Appears: Non-toxic, Chronically Ill - Head Exam Head Exam: NORMOCEPHALIC - Eye Exam Eye Exam: PERRL - ENT Exam ENT Exam: Mucous Membranes Dry - Neck Exam Neck Exam: absent: Lymphadenopathy - Respiratory Exam Respiratory Exam: Decreased Breath Sounds, Rales, Rhonchi - Cardiovascular Exam Cardiovascular Exam: REGULAR RHYTHM, +S1, +S2 - GI/Abdominal Exam GI & Abdominal Exam: Distended, Soft. absent: Tenderness - Rectal Exam Rectal Exam: Deferred - Exam Exam: NORMAL INSPECTION Assessment and Plan (1) CANDELARIA (acute kidney injury) Status: Resolved (2) Acute respiratory failure Status: Acute (3) Altered mental status Status: Deleted (4) Diastolic CHF, acute on chronic Status: Acute (5) Pleural effusion, bilateral Status: Resolved (6) Pneumonia Status: Resolved (7) Aortic valve vegetation Status: Acute
--- NOTE | 2017-11-27 15:04 | CP.PCM.PN ---
Subjective - Date & Time of Evaluation Date of Evaluation: 11/27/17 Time of Evaluation: 10:00 - Subjective Subjective: F/U respiratory Failure. Pt awake, no A/D, answering questions, at bedside. Objective - Vital Signs/Intake and Output Vital Signs (last 24 hours): Temp Pulse Resp BP Pulse Ox 97.6 F 70 18 123/65 100 11/27/17 12:36 11/27/17 12:36 11/27/17 12:36 11/27/17 12:36 11/27/17 12:36 Intake and Output: 11/27/17 11/27/17 06:59 18:59 Intake Total 1140 Output Total 800 Balance 340 - Medications Medications: Current Medications Cholecalciferol (Vitamin D) 5,000 intlu PO DAILY [facility] Last Admin: 11/27/17 08:57 Dose: 5,000 intlu Digoxin (Lanoxin) 0.125 mg IVP DAILY [facility] Last Admin: 11/27/17 09:13 Dose: 0.125 mg Diltiazem HCl (Cardizem) 60 mg PO Q8 [facility] Last Admin: 11/27/17 09:01 Dose: 60 mg Furosemide (Lasix) 40 mg IVP DAILY [facility] Last Admin: 11/27/17 08:59 Dose: 40 mg Metronidazole (Flagyl 500mg/100ml Ns) 100 mls @ 100 mls/hr IVPB Q8 [facility] PRN Reason: Protocol Last Admin: 11/27/17 09:07 Dose: 100 mls/hr Vancomycin HCl 1 gm/ Sodium (Chloride) 250 mls @ 166.667 mls/hr IVPB Q48H [facility] PRN Reason: Protocol Last Admin: 11/26/17 15:12 Dose: 166.667 mls/hr Lactobacillus Acidophilus (Bacid Acidophilus) 1 cap PO BID [facility] Last Admin: 11/27/17 08:56 Dose: 1 cap Lamotrigine (Lamictal) 100 mg PO Q12@0930,2130 [facility] Last Admin: 11/27/17 09:01 Dose: 100 mg Metoprolol Succinate (Toprol Xl) 50 mg PO DAILY [facility] Last Admin: 11/27/17 09:00 Dose: 50 mg Pantoprazole Sodium (Protonix Ec Tab) 40 mg PO DAILY [facility] Last Admin: 11/27/17 09:02 Dose: 40 mg Vancomycin HCl (Vancocin (Oral/Rectal Use)) 250 mg PO Q6 [facility] PRN Reason: Protocol Last Admin: 11/27/17 09:05 Dose: 250 mg - Labs Labs: 11/20/17 11:40 11/20/17 11:40 PT 14.9 Seconds (9.8-13.1) H 10/29/17 04:20 INR 1.3 (0.9-1.2) H 10/29/17 04:20 APTT 34.4 Seconds (25.6-37.1) 10/26/17 12:30 - Constitutional Appears: Chronically Ill - Head Exam Head Exam: NORMAL INSPECTION - Eye Exam Eye Exam: PERRL - ENT Exam Additional comments: Dry scab nose bridge, NG tube - Neck Exam Neck Exam: Normal Inspection - Respiratory Exam Respiratory Exam: Decreased Breath Sounds (at bases), Rhonchi (few scattered) - Cardiovascular Exam Cardiovascular Exam: Irregular Rhythm - GI/Abdominal Exam GI & Abdominal Exam: Soft, Normal Bowel Sounds - Extremities Exam Extremities Exam: Normal Inspection - Back Exam Additional comments: Coccyx lesion healing - Neurological Exam Neurological Exam: Awake, CN II-XII Intact Additional comments: Confused, at times with mumbling sounds, generalized weakness. - Psychiatric Exam Psychiatric exam: Anxious - Skin Skin Exam: Warm Assessment and Plan (1) Acute respiratory failure with hypoxia Status: Acute (2) Encephalopathy Status: Acute (3) Pleural effusion, bilateral Status: Resolved (4) Diastolic CHF, acute on chronic Status: Acute (5) Hx of seizure disorder Status: Chronic (6) A-fib Status: Chronic (7) CANDELARIA (acute kidney injury) Status: Resolved (8) Anemia Status: Chronic (9) Aortic valve vegetation Status: Acute (10) SUSAN (obstructive sleep apnea) Status: Chronic (11) Pulmonary hypertension Status: Chronic (12) Clostridium difficile infection Status: Acute - Assessment and Plan (Free Text) Plan: Continue Vanco, Flagyl and rest of Tx. PT, OT
--- NOTE | 2017-11-28 | CP.PCM.PN ---
Subjective - Date & Time of Evaluation Date of Evaluation: 11/27/17 Time of Evaluation: 21:50 - Subjective Subjective: Patient is not reported to have seizures. He was O.O.B to Chair for 50 minutes. He is alert, awake oriented X 3 and is slow to answer. He has Scrotal swelling due to rash and the is considering to stop the Lamictal like usual. Now it is time to raise the Lamictal from 100 mg Q 12hrs up to 150 mg Q 12 hrs He is still receiving Antibiotics. Objective - Vital Signs/Intake and Output Vital Signs (last 24 hours): Temp Pulse Resp BP Pulse Ox 97.9 F 120 H 20 125/75 97 11/27/17 20:10 11/27/17 20:10 11/27/17 20:10 11/27/17 20:10 11/27/17 20:10 - Medications Medications: Current Medications Cholecalciferol (Vitamin D) 5,000 intlu PO DAILY [facility] Last Admin: 11/27/17 08:57 Dose: 5,000 intlu Digoxin (Lanoxin) 0.125 mg IVP DAILY [facility] Last Admin: 11/27/17 09:13 Dose: 0.125 mg Diltiazem HCl (Cardizem) 60 mg PO Q8 [facility] Last Admin: 11/27/17 17:47 Dose: 60 mg Furosemide (Lasix) 40 mg IVP DAILY [facility] Last Admin: 11/27/17 08:59 Dose: 40 mg Metronidazole (Flagyl 500mg/100ml Ns) 100 mls @ 100 mls/hr IVPB Q8 [facility] PRN Reason: Protocol Last Admin: 11/27/17 17:49 Dose: 100 mls/hr Vancomycin HCl 1 gm/ Sodium (Chloride) 250 mls @ 166.667 mls/hr IVPB Q48H [facility] PRN Reason: Protocol Last Admin: 11/26/17 15:12 Dose: 166.667 mls/hr Lactobacillus Acidophilus (Bacid Acidophilus) 1 cap PO BID [facility] Last Admin: 11/27/17 22:22 Dose: 1 cap Lamotrigine (Lamictal) 100 mg PO Q12@0930,2130 [facility] Last Admin: 11/27/17 22:16 Dose: 100 mg Metoprolol Succinate (Toprol Xl) 50 mg PO DAILY [facility] Last Admin: 11/27/17 09:00 Dose: 50 mg Pantoprazole Sodium (Protonix Ec Tab) 40 mg PO DAILY [facility] Last Admin: 11/27/17 09:02 Dose: 40 mg Vancomycin HCl (Vancocin (Oral/Rectal Use)) 250 mg PO Q6 [facility] PRN Reason: Protocol Last Admin: 11/27/17 22:16 Dose: 250 mg - Labs Labs: 11/20/17 11:40 11/20/17 11:40 PT 14.9 Seconds (9.8-13.1) H 10/29/17 04:20 INR 1.3 (0.9-1.2) H 10/29/17 04:20 APTT 34.4 Seconds (25.6-37.1) 10/26/17 12:30 Assessment and Plan (1) CANDELARIA (acute kidney injury) Status: Resolved (2) Acute respiratory failure Status: Acute (3) Altered mental status Status: Deleted (4) Pleural effusion, bilateral Status: Resolved (5) Pneumonia Status: Resolved (6) Seizure disorder Status: Suspected (7) Encephalopathy Status: Acute
[2017-11-28] MEDS: metroNIDAZOLE 500mg/100ml NS 100 ML IVPB SCH ×3 (01:39→17:16)
[2017-11-28] MEDS: Vancomycin 500 mg (Oral/Rectal USE) PO SCH ×4 (04:46→21:07)
[2017-11-28] MEDS: Cholecalciferol 1,000 INTLU TAB PO SCH (09:17)
[2017-11-28] MEDS: Pantoprazole 40 mg EC Tab PO SCH (09:19)
[2017-11-28] MEDS: Metoprolol Succinate 50 mg XL Tab PO SCH (09:19)
[2017-11-28] MEDS: Digoxin 500 mcg/2ml (0.5 mg/2ml) Inj IVP SCH (09:35)
[2017-11-28] MEDS: Lactobacillus Acidophilus 500 MU Cap PO SCH ×2 (09:56→17:16)
--- NOTE | 2017-11-28 14:18 | CP.PCM.PN ---
Subjective - Date & Time of Evaluation Date of Evaluation: 11/28/17 Time of Evaluation: 10:20 - Subjective Subjective: F/U Respiratory Failure. Pt awake, answer questions, at bedside. Objective - Vital Signs/Intake and Output Vital Signs (last 24 hours): Temp Pulse Resp BP Pulse Ox 97.7 F 79 18 116/74 100 11/28/17 12:52 11/28/17 12:52 11/28/17 12:52 11/28/17 12:52 11/28/17 12:52 Intake and Output: 11/28/17 11/28/17 06:59 18:59 Intake Total 1140 Output Total 725 Balance 415 - Medications Medications: Current Medications Cholecalciferol (Vitamin D) 5,000 intlu PO DAILY [facility] Last Admin: 11/28/17 09:17 Dose: 5,000 intlu Digoxin (Lanoxin) 0.125 mg IVP DAILY [facility] Last Admin: 11/28/17 09:35 Dose: 0.125 mg Diltiazem HCl (Cardizem) 60 mg PO Q8 [facility] Last Admin: 11/28/17 09:17 Dose: 60 mg Furosemide (Lasix) 40 mg IVP DAILY [facility] Last Admin: 11/28/17 09:36 Dose: 40 mg Metronidazole (Flagyl 500mg/100ml Ns) 100 mls @ 100 mls/hr IVPB Q8 [facility] PRN Reason: Protocol Last Admin: 11/28/17 09:18 Dose: 100 mls/hr Vancomycin HCl 1 gm/ Sodium (Chloride) 250 mls @ 166.667 mls/hr IVPB Q48H [facility] PRN Reason: Protocol Last Admin: 11/26/17 15:12 Dose: 166.667 mls/hr Lactobacillus Acidophilus (Bacid Acidophilus) 1 cap PO BID [facility] Last Admin: 11/28/17 09:56 Dose: 1 cap Lamotrigine (Lamictal) 100 mg PO Q12@0930,2130 [facility] Last Admin: 11/28/17 09:17 Dose: 100 mg Metoprolol Succinate (Toprol Xl) 50 mg PO DAILY [facility] Last Admin: 11/28/17 09:19 Dose: 50 mg Pantoprazole Sodium (Protonix Ec Tab) 40 mg PO DAILY [facility] Last Admin: 11/28/17 09:19 Dose: 40 mg Vancomycin HCl (Vancocin (Oral/Rectal Use)) 250 mg PO Q6 [facility] PRN Reason: Protocol Last Admin: 11/28/17 09:19 Dose: 250 mg - Labs Labs: 11/20/17 11:40 11/20/17 11:40 PT 14.9 Seconds (9.8-13.1) H 10/29/17 04:20 INR 1.3 (0.9-1.2) H 10/29/17 04:20 APTT 34.4 Seconds (25.6-37.1) 10/26/17 12:30 - Constitutional Appears: Chronically Ill - Head Exam Head Exam: NORMAL INSPECTION - Eye Exam Eye Exam: PERRL - ENT Exam Additional comments: Dry scab nose bridge, NG tube - Neck Exam Neck Exam: Normal Inspection - Respiratory Exam Respiratory Exam: Decreased Breath Sounds (at bases), Rhonchi (few at bases) - Cardiovascular Exam Cardiovascular Exam: Irregular Rhythm - GI/Abdominal Exam GI & Abdominal Exam: Soft, Normal Bowel Sounds - Extremities Exam Extremities Exam: Normal Inspection - Back Exam Additional comments: Coccyx lesion healing - Neurological Exam Neurological Exam: Awake, CN II-XII Intact Additional comments: Confused, at times mumbling sounds, generalized weakness. - Psychiatric Exam Psychiatric exam: Anxious - Skin Skin Exam: Warm Assessment and Plan (1) Acute respiratory failure with hypoxia Status: Acute (2) Encephalopathy Status: Acute (3) Pleural effusion, bilateral Status: Resolved (4) Diastolic CHF, acute on chronic Status: Acute (5) Hx of seizure disorder Status: Chronic (6) A-fib Status: Chronic (7) CANDELARIA (acute kidney injury) Status: Resolved (8) Anemia Status: Chronic (9) Aortic valve vegetation Status: Acute (10) SUSAN (obstructive sleep apnea) Status: Chronic (11) Pulmonary hypertension Status: Chronic (12) Clostridium difficile infection Status: Acute - Assessment and Plan (Free Text) Plan: Continue PT,OT and current Tx.
--- NOTE | 2017-11-28 16:10 | CP.PCM.PN ---
Subjective - Date & Time of Evaluation Date of Evaluation: 11/28/17 Time of Evaluation: 08:00 - Subjective Subjective: afebrile nad alert at times Objective - Vital Signs/Intake and Output Vital Signs (last 24 hours): Temp Pulse Resp BP Pulse Ox 97.3 F L 82 18 141/70 100 11/28/17 15:39 11/28/17 15:39 11/28/17 15:39 11/28/17 15:39 11/28/17 15:39 Intake and Output: 11/28/17 11/28/17 06:59 18:59 Intake Total 1140 Output Total 725 Balance 415 - Medications Medications: Current Medications Cholecalciferol (Vitamin D) 5,000 intlu PO DAILY COUNTS INCLUDE 234 BEDS AT THE [facility] Last Admin: 11/28/17 09:17 Dose: 5,000 intlu Digoxin (Lanoxin) 0.125 mg IVP DAILY COUNTS INCLUDE 234 BEDS AT THE [facility] Last Admin: 11/28/17 09:35 Dose: 0.125 mg Diltiazem HCl (Cardizem) 60 mg PO Q8 COUNTS INCLUDE 234 BEDS AT THE [facility] Last Admin: 11/28/17 09:17 Dose: 60 mg Furosemide (Lasix) 40 mg IVP DAILY COUNTS INCLUDE 234 BEDS AT THE [facility] Last Admin: 11/28/17 09:36 Dose: 40 mg Metronidazole (Flagyl 500mg/100ml Ns) 100 mls @ 100 mls/hr IVPB Q8 COUNTS INCLUDE 234 BEDS AT THE [facility] PRN Reason: Protocol Last Admin: 11/28/17 09:18 Dose: 100 mls/hr Vancomycin HCl 1 gm/ Sodium (Chloride) 250 mls @ 166.667 mls/hr IVPB Q48H [facility] PRN Reason: Protocol Last Admin: 11/26/17 15:12 Dose: 166.667 mls/hr Lactobacillus Acidophilus (Bacid Acidophilus) 1 cap PO BID COUNTS INCLUDE 234 BEDS AT THE [facility] Last Admin: 11/28/17 09:56 Dose: 1 cap Lamotrigine (Lamictal) 100 mg PO Q12@0930,2130 COUNTS INCLUDE 234 BEDS AT THE [facility] Last Admin: 11/28/17 09:17 Dose: 100 mg Metoprolol Succinate (Toprol Xl) 50 mg PO DAILY COUNTS INCLUDE 234 BEDS AT THE [facility] Last Admin: 11/28/17 09:19 Dose: 50 mg Pantoprazole Sodium (Protonix Ec Tab) 40 mg PO DAILY COUNTS INCLUDE 234 BEDS AT THE [facility] Last Admin: 11/28/17 09:19 Dose: 40 mg Vancomycin HCl (Vancocin (Oral/Rectal Use)) 250 mg PO Q6 COUNTS INCLUDE 234 BEDS AT THE [facility] PRN Reason: Protocol Last Admin: 11/28/17 09:19 Dose: 250 mg - Labs Labs: 11/20/17 11:40 11/20/17 11:40 PT 14.9 Seconds (9.8-13.1) H 10/29/17 04:20 INR 1.3 (0.9-1.2) H 10/29/17 04:20 APTT 34.4 Seconds (25.6-37.1) 10/26/17 12:30 - Constitutional Appears: Non-toxic, Chronically Ill - Head Exam Head Exam: NORMOCEPHALIC - Eye Exam Eye Exam: PERRL. absent: Scleral icterus - Neck Exam Neck Exam: absent: Lymphadenopathy - Respiratory Exam Respiratory Exam: Decreased Breath Sounds - Cardiovascular Exam Cardiovascular Exam: REGULAR RHYTHM - GI/Abdominal Exam GI & Abdominal Exam: Distended, Soft - Rectal Exam Rectal Exam: Deferred - Exam Exam: NORMAL INSPECTION - Extremities Exam Extremities Exam: absent: Pedal Edema - Back Exam Back Exam: absent: CVA tenderness (L), CVA tenderness (R) Assessment and Plan (1) CANDELARIA (acute kidney injury) Status: Resolved (2) Acute respiratory failure Status: Acute (3) Altered mental status Status: Deleted (4) Diastolic CHF, acute on chronic Status: Acute (5) Pleural effusion, bilateral Status: Resolved (6) Pneumonia Status: Resolved (7) Aortic valve vegetation Status: Acute - Assessment and Plan (Free Text) Assessment: day 39/ IV rx for aortic Vegetation Dr Castro to eval cont rx as per Dr Cole
--- NOTE | 2017-11-28 22:59 | CP.PCM.PN ---
Subjective - Date & Time of Evaluation Date of Evaluation: 11/28/17 Time of Evaluation: 22:00 - Subjective Subjective: Patient is more interactive and is doing slightly better. He is less lethargic. There are no documented seizures. Objective - Vital Signs/Intake and Output Vital Signs (last 24 hours): Temp Pulse Resp BP Pulse Ox 97.4 F L 71 18 132/65 100 11/28/17 19:23 11/28/17 19:23 11/28/17 19:23 11/28/17 19:23 11/28/17 19:23 Intake and Output: 11/28/17 11/29/17 18:59 06:59 Intake Total 2610 Output Total 500 Balance 2110 - Medications Medications: Current Medications Cholecalciferol (Vitamin D) 5,000 intlu PO DAILY [facility] Last Admin: 11/28/17 09:17 Dose: 5,000 intlu Digoxin (Lanoxin) 0.125 mg IVP DAILY [facility] Last Admin: 11/28/17 09:35 Dose: 0.125 mg Diltiazem HCl (Cardizem) 60 mg PO Q8 [facility] Last Admin: 11/28/17 17:16 Dose: 60 mg Furosemide (Lasix) 40 mg IVP DAILY [facility] Last Admin: 11/28/17 09:36 Dose: 40 mg Metronidazole (Flagyl 500mg/100ml Ns) 100 mls @ 100 mls/hr IVPB Q8 [facility] PRN Reason: Protocol Last Admin: 11/28/17 17:16 Dose: 100 mls/hr Vancomycin HCl 1 gm/ Sodium (Chloride) 250 mls @ 166.667 mls/hr IVPB Q48H [facility] PRN Reason: Protocol Last Admin: 11/28/17 17:31 Dose: 166.667 mls/hr Lactobacillus Acidophilus (Bacid Acidophilus) 1 cap PO BID [facility] Last Admin: 11/28/17 17:16 Dose: 1 cap Lamotrigine (Lamictal) 100 mg PO Q12@0930,2130 [facility] Last Admin: 11/28/17 21:07 Dose: 100 mg Metoprolol Succinate (Toprol Xl) 50 mg PO DAILY [facility] Last Admin: 11/28/17 09:19 Dose: 50 mg Pantoprazole Sodium (Protonix Ec Tab) 40 mg PO DAILY [facility] Last Admin: 11/28/17 09:19 Dose: 40 mg Vancomycin HCl (Vancocin (Oral/Rectal Use)) 250 mg PO Q6 [facility] PRN Reason: Protocol Last Admin: 11/28/17 21:07 Dose: 250 mg - Labs Labs: 11/20/17 11:40 11/20/17 11:40 PT 14.9 Seconds (9.8-13.1) H 10/29/17 04:20 INR 1.3 (0.9-1.2) H 10/29/17 04:20 APTT 34.4 Seconds (25.6-37.1) 10/26/17 12:30 Assessment and Plan (1) CANDELARIA (acute kidney injury) Status: Resolved (2) Acute respiratory failure Status: Acute (3) Altered mental status Status: Deleted (4) Pleural effusion, bilateral Status: Resolved (5) Pneumonia Status: Resolved (6) Seizure disorder Status: Suspected (7) Encephalopathy Status: Acute
[2017-11-29] MEDS: metroNIDAZOLE 500mg/100ml NS 100 ML IVPB SCH ×3 (00:04→17:28)
[2017-11-29] MEDS: Vancomycin 500 mg (Oral/Rectal USE) PO SCH ×3 (04:07→16:26)
[2017-11-29] MEDS: Lactobacillus Acidophilus 500 MU Cap PO SCH ×2 (09:51→17:24)
[2017-11-29] MEDS: Cholecalciferol 1,000 INTLU TAB PO SCH (09:52)
[2017-11-29] MEDS: Digoxin 500 mcg/2ml (0.5 mg/2ml) Inj IVP SCH (09:52)
[2017-11-29] MEDS: Pantoprazole 40 mg EC Tab PO SCH (09:53)
[2017-11-29] MEDS: Metoprolol Succinate 50 mg XL Tab PO SCH (09:53)
--- NOTE | 2017-11-29 15:51 | CP.PCM.PN ---
Subjective - Date & Time of Evaluation Date of Evaluation: 11/29/17 Time of Evaluation: 12:30 - Subjective Subjective: F/U Respiratory Failure. Awake, able to talk, eating with the 's help, had been out of bed in the recliner. Objective - Vital Signs/Intake and Output Vital Signs (last 24 hours): Temp Pulse Resp BP Pulse Ox 98 F 64 18 123/63 96 11/29/17 12:15 11/29/17 12:15 11/29/17 12:15 11/29/17 12:15 11/29/17 12:15 Intake and Output: 11/29/17 11/29/17 06:59 18:59 Intake Total 3650 Output Total 1200 Balance 2450 - Medications Medications: Current Medications Apixaban (Eliquis) 2.5 mg PO BID [facility] PRN Reason: Protocol Cholecalciferol (Vitamin D) 5,000 intlu PO DAILY [facility] Last Admin: 11/29/17 09:52 Dose: 5,000 intlu Digoxin (Lanoxin) 0.125 mg IVP DAILY [facility] Last Admin: 11/29/17 09:52 Dose: 0.125 mg Diltiazem HCl (Cardizem) 60 mg PO Q8 [facility] Last Admin: 11/29/17 10:03 Dose: 60 mg Furosemide (Lasix) 40 mg IVP DAILY [facility] Last Admin: 11/29/17 09:53 Dose: 40 mg Metronidazole (Flagyl 500mg/100ml Ns) 100 mls @ 100 mls/hr IVPB Q8 [facility] PRN Reason: Protocol Last Admin: 11/29/17 09:51 Dose: 100 mls/hr Vancomycin HCl 1 gm/ Sodium (Chloride) 250 mls @ 166.667 mls/hr IVPB Q48H [facility] PRN Reason: Protocol Last Admin: 11/28/17 17:31 Dose: 166.667 mls/hr Lactobacillus Acidophilus (Bacid Acidophilus) 1 cap PO BID [facility] Last Admin: 11/29/17 09:51 Dose: 1 cap Lamotrigine (Lamictal) 100 mg PO Q12@0930,2130 [facility] Last Admin: 11/29/17 09:53 Dose: 100 mg Metoprolol Succinate (Toprol Xl) 50 mg PO DAILY [facility] Last Admin: 11/29/17 09:53 Dose: 50 mg Pantoprazole Sodium (Protonix Ec Tab) 40 mg PO DAILY [facility] Last Admin: 11/29/17 09:53 Dose: 40 mg Vancomycin HCl (Vancocin (Oral/Rectal Use)) 250 mg PO Q6 [facility] PRN Reason: Protocol Last Admin: 11/29/17 10:02 Dose: 250 mg - Labs Labs: 11/20/17 11:40 11/20/17 11:40 PT 14.9 Seconds (9.8-13.1) H 10/29/17 04:20 INR 1.3 (0.9-1.2) H 10/29/17 04:20 APTT 34.4 Seconds (25.6-37.1) 10/26/17 12:30 - Constitutional Appears: Chronically Ill - Head Exam Head Exam: NORMAL INSPECTION - Eye Exam Eye Exam: PERRL - ENT Exam Additional comments: Dry scab nose bridge. - Neck Exam Neck Exam: Normal Inspection - Respiratory Exam Respiratory Exam: Decreased Breath Sounds (at bases), Rhonchi (few at bases) - Cardiovascular Exam Cardiovascular Exam: Irregular Rhythm - GI/Abdominal Exam GI & Abdominal Exam: Soft, Normal Bowel Sounds - Extremities Exam Extremities Exam: Normal Inspection - Back Exam Additional comments: Coccyx lesion healing - Neurological Exam Neurological Exam: Awake, CN II-XII Intact Additional comments: Confused, at times mumbling sounds, generalized weakness. - Psychiatric Exam Psychiatric exam: Anxious - Skin Skin Exam: Warm Assessment and Plan (1) Acute respiratory failure with hypoxia Status: Acute (2) Encephalopathy Status: Acute (3) Pleural effusion, bilateral Status: Resolved (4) Diastolic CHF, acute on chronic Status: Acute (5) Hx of seizure disorder Status: Chronic (6) A-fib Status: Chronic (7) CANDELARIA (acute kidney injury) Status: Resolved (8) Anemia Status: Chronic (9) Aortic valve vegetation Status: Acute (10) SUSAN (obstructive sleep apnea) Status: Chronic (11) Pulmonary hypertension Status: Chronic (12) Clostridium difficile infection Status: Acute - Assessment and Plan (Free Text) Plan: Continue Flagyl, Vanco and rest of Tx, PT,OT.
--- NOTE | 2017-11-30 00:49 | CP.PCM.PN ---
Subjective - Date & Time of Evaluation Date of Evaluation: 11/29/17 Time of Evaluation: 22:15 - Subjective Subjective: No documented seizures, he is very alert today. He is weak and couldn't use the walker due to right shoulder pain and right Arm pain. He needs to go to Rehab after recovery from his current condition. Normal V.S. Objective - Vital Signs/Intake and Output Vital Signs (last 24 hours): Temp Pulse Resp BP Pulse Ox 98.6 F 85 16 151/69 H 100 11/30/17 00:21 11/30/17 00:21 11/30/17 00:21 11/30/17 00:21 11/30/17 00:21 Intake and Output: 11/29/17 11/30/17 18:59 06:59 Intake Total 1500 Output Total 1800 Balance -300 - Medications Medications: Current Medications Apixaban (Eliquis) 2.5 mg PO BID [facility] PRN Reason: Protocol Last Admin: 11/29/17 17:24 Dose: 2.5 mg Cholecalciferol (Vitamin D) 5,000 intlu PO DAILY [facility] Last Admin: 11/29/17 09:52 Dose: 5,000 intlu Digoxin (Lanoxin) 0.125 mg IVP DAILY [facility] Last Admin: 11/29/17 09:52 Dose: 0.125 mg Diltiazem HCl (Cardizem) 60 mg PO Q8 [facility] Last Admin: 11/29/17 17:25 Dose: 60 mg Furosemide (Lasix) 40 mg IVP DAILY [facility] Last Admin: 11/29/17 09:53 Dose: 40 mg Metronidazole (Flagyl 500mg/100ml Ns) 100 mls @ 100 mls/hr IVPB Q8 [facility] PRN Reason: Protocol Last Admin: 11/29/17 17:28 Dose: 100 mls/hr Vancomycin HCl 1 gm/ Sodium (Chloride) 250 mls @ 166.667 mls/hr IVPB Q48H [facility] PRN Reason: Protocol Last Admin: 11/28/17 17:31 Dose: 166.667 mls/hr Lactobacillus Acidophilus (Bacid Acidophilus) 1 cap PO BID [facility] Last Admin: 11/29/17 17:24 Dose: 1 cap Lamotrigine (Lamictal) 100 mg PO Q12@0930,2130 [facility] Last Admin: 11/29/17 21:29 Dose: 100 mg Metoprolol Succinate (Toprol Xl) 50 mg PO DAILY [facility] Last Admin: 11/29/17 09:53 Dose: 50 mg Pantoprazole Sodium (Protonix Ec Tab) 40 mg PO DAILY [facility] Last Admin: 11/29/17 09:53 Dose: 40 mg - Labs Labs: 11/20/17 11:40 11/20/17 11:40 PT 14.9 Seconds (9.8-13.1) H 10/29/17 04:20 INR 1.3 (0.9-1.2) H 10/29/17 04:20 APTT 34.4 Seconds (25.6-37.1) 10/26/17 12:30 Assessment and Plan (1) CANDELARIA (acute kidney injury) Status: Resolved (2) Acute respiratory failure Status: Acute (3) Altered mental status Status: Deleted (4) Pleural effusion, bilateral Status: Resolved (5) Pneumonia Status: Resolved (6) Seizure disorder Status: Suspected (7) Encephalopathy Status: Acute
[2017-11-30] MEDS: metroNIDAZOLE 500mg/100ml NS 100 ML IVPB SCH ×3 (01:11→18:00)
[2017-11-30 07:41] LABS: BASO # 0.1 K/uL (0.0-0.2); BASO % 0.7 % (0.0-2.0); EOS # 0.2 K/uL (0.0-0.7); EOS % 2.8 % (0.0-4.0); HEMOGLOBIN 10.3 g/dL (12.0-18.0); LYMPH % 13.8 % (20.0-40.0); MEAN CELL VOLUME 93.6 fl (80.0-94.0); MEAN CORPUSCULAR HEMOGLOBIN 30.9 pg (27.0-31.0); MEAN PLATELET VOLUME 8.3 fl (7.2-11.7); MONO # 0.8 K/uL (0.0-0.8); MONO % 11.4 % (0.0-10.0); NEUT # 5.1 K/uL (1.8-7.0); NEUT % 71.3 % (50.0-75.0); NRBC % 0.2 % (0.0-0.0); RBC 3.33 Mil/uL (4.40-5.90); RED CELL DISTRIBUTION WIDTH 19.2 % (11.5-14.5); WHITE BLOOD COUNT 7.1 K/uL (4.8-10.8)
[2017-11-30 08:05] LABS: ALB/GLOB RATIO 0.7 (1.0-2.1); ALT/SGPT 27 U/L (21-72); AST/SGOT 36 U/L (17-59); BLOOD UREA NITROGEN 30 mg/dl (9-20); GFR AFRICAN-AMERICAN > 60; GFR NON-AFRICAN AMERICAN > 60
[2017-11-30] MEDS: Cholecalciferol 1,000 INTLU TAB PO SCH (09:41)
[2017-11-30] MEDS: Metoprolol Succinate 50 mg XL Tab PO SCH (09:43)
[2017-11-30] MEDS: Pantoprazole 40 mg EC Tab PO SCH (09:43)
[2017-11-30] MEDS: Digoxin 500 mcg/2ml (0.5 mg/2ml) Inj IVP SCH (09:44)
[2017-11-30] MEDS: Lactobacillus Acidophilus 500 MU Cap PO SCH ×2 (09:45→18:29)
[2017-11-30] MEDS ORDERED: Chlorhexidine Gluconate 1 APPL/PKT TP ONE (13:46)
--- NOTE | 2017-11-30 18:23 | CP.PCM.PN ---
Subjective - Date & Time of Evaluation Date of Evaluation: 11/30/17 Time of Evaluation: 16:30 - Subjective Subjective: F/U Respiratory failure. Pt appear less responsive today, at bedside. Objective - Vital Signs/Intake and Output Vital Signs (last 24 hours): Temp Pulse Resp BP Pulse Ox 98.4 F 88 20 133/77 100 11/30/17 16:13 11/30/17 16:13 11/30/17 16:13 11/30/17 16:13 11/30/17 16:13 Intake and Output: 11/30/17 11/30/17 06:59 18:59 Intake Total 2400 Output Total 2350 Balance 50 - Medications Medications: Current Medications Apixaban (Eliquis) 2.5 mg PO BID [facility] PRN Reason: Protocol Last Admin: 11/30/17 09:42 Dose: 2.5 mg Cholecalciferol (Vitamin D) 5,000 intlu PO DAILY [facility] Last Admin: 11/30/17 09:41 Dose: 5,000 intlu Digoxin (Lanoxin) 0.125 mg IVP DAILY [facility] Last Admin: 11/30/17 09:44 Dose: 0.125 mg Diltiazem HCl (Cardizem) 60 mg PO Q8 [facility] Last Admin: 11/30/17 09:42 Dose: 60 mg Furosemide (Lasix) 40 mg IVP DAILY [facility] Last Admin: 11/30/17 09:42 Dose: 40 mg Metronidazole (Flagyl 500mg/100ml Ns) 100 mls @ 100 mls/hr IVPB Q8 [facility] PRN Reason: Protocol Last Admin: 11/30/17 09:38 Dose: 100 mls/hr Vancomycin HCl 1 gm/ Sodium (Chloride) 250 mls @ 166.667 mls/hr IVPB Q48H [facility] PRN Reason: Protocol Last Admin: 11/28/17 17:31 Dose: 166.667 mls/hr Lactobacillus Acidophilus (Bacid Acidophilus) 1 cap PO BID [facility] Last Admin: 11/30/17 09:45 Dose: 1 cap Lamotrigine (Lamictal) 100 mg PO Q12@0930,2130 [facility] Last Admin: 11/30/17 09:44 Dose: 100 mg Metoprolol Succinate (Toprol Xl) 50 mg PO DAILY [facility] Last Admin: 11/30/17 09:43 Dose: 50 mg Pantoprazole Sodium (Protonix Ec Tab) 40 mg PO DAILY [facility] Last Admin: 11/30/17 09:43 Dose: 40 mg - Labs Labs: 11/30/17 06:08 11/30/17 06:08 PT 14.9 Seconds (9.8-13.1) H 10/29/17 04:20 INR 1.3 (0.9-1.2) H 10/29/17 04:20 APTT 34.4 Seconds (25.6-37.1) 10/26/17 12:30 - Constitutional Appears: Chronically Ill - Head Exam Head Exam: NORMAL INSPECTION - Eye Exam Eye Exam: PERRL - ENT Exam Additional comments: Dry scab nose bridge, NG tube - Neck Exam Neck Exam: Normal Inspection - Respiratory Exam Respiratory Exam: Decreased Breath Sounds (at bases), Rhonchi (few at bases) - Cardiovascular Exam Cardiovascular Exam: Irregular Rhythm - GI/Abdominal Exam GI & Abdominal Exam: Soft, Normal Bowel Sounds - Extremities Exam Extremities Exam: Normal Inspection - Back Exam Additional comments: Coccyx lesion healing - Neurological Exam Neurological Exam: Awake, CN II-XII Intact Additional comments: Confused, at times with mumbling sounds, generalized weakness. - Psychiatric Exam Psychiatric exam: Anxious - Skin Skin Exam: Warm Assessment and Plan (1) Acute respiratory failure with hypoxia Status: Acute (2) Encephalopathy Status: Acute (3) Pleural effusion, bilateral Status: Resolved (4) Diastolic CHF, acute on chronic Status: Acute (5) Hx of seizure disorder Status: Chronic (6) A-fib Status: Chronic (7) CANDELARIA (acute kidney injury) Status: Resolved (8) Anemia Status: Chronic (9) Aortic valve vegetation Status: Acute (10) SUSAN (obstructive sleep apnea) Status: Chronic (11) Pulmonary hypertension Status: Chronic (12) Clostridium difficile infection Status: Acute - Assessment and Plan (Free Text) Plan: Pt' request shop diet, to have swallow eval, Dietary consult for low weight , continue current Tx.
--- NOTE | 2017-12-01 00:21 | CP.PCM.PN ---
Subjective - Date & Time of Evaluation Date of Evaluation: 11/30/17 Time of Evaluation: 22:00 - Subjective Subjective: More lethargic today. No observed seizures but subtle Seizure is a high possibility. He is on Lamictal 100 mg Q 12 hrs and we need to make therapeutic at 150 mg Q 12hrs. is opposing any increase in lamictal and is preventing us from treating his seizures with appropriate doses of Lamictal. Labs are showing Anemia, Albumin - Globulin is abnormal, but better than previous readings. Normal V.S. Objective - Vital Signs/Intake and Output Vital Signs (last 24 hours): Temp Pulse Resp BP Pulse Ox 98.9 F 83 16 144/71 99 11/30/17 23:59 11/30/17 23:59 11/30/17 23:59 11/30/17 23:59 11/30/17 23:59 Intake and Output: 11/30/17 12/01/17 18:59 06:59 Intake Total 750 Output Total 1611 Balance -861 - Medications Medications: Current Medications Apixaban (Eliquis) 2.5 mg PO BID [facility] PRN Reason: Protocol Last Admin: 11/30/17 18:31 Dose: 2.5 mg Cholecalciferol (Vitamin D) 5,000 intlu PO DAILY [facility] Last Admin: 11/30/17 09:41 Dose: 5,000 intlu Digoxin (Lanoxin) 0.125 mg IVP DAILY [facility] Last Admin: 11/30/17 09:44 Dose: 0.125 mg Diltiazem HCl (Cardizem) 60 mg PO Q8 [facility] Last Admin: 11/30/17 18:29 Dose: 60 mg Furosemide (Lasix) 40 mg IVP DAILY [facility] Last Admin: 11/30/17 09:42 Dose: 40 mg Metronidazole (Flagyl 500mg/100ml Ns) 100 mls @ 100 mls/hr IVPB Q8 [facility] PRN Reason: Protocol Last Admin: 11/30/17 18:00 Dose: 100 mls/hr Vancomycin HCl 1 gm/ Sodium (Chloride) 250 mls @ 166.667 mls/hr IVPB Q48H [facility] PRN Reason: Protocol Last Admin: 11/30/17 15:00 Dose: 166.667 mls/hr Lactobacillus Acidophilus (Bacid Acidophilus) 1 cap PO BID [facility] Last Admin: 11/30/17 18:29 Dose: 1 cap Lamotrigine (Lamictal) 100 mg PO Q12@0930,2130 [facility] Last Admin: 11/30/17 21:23 Dose: 100 mg Metoprolol Succinate (Toprol Xl) 50 mg PO DAILY [facility] Last Admin: 11/30/17 09:43 Dose: 50 mg Pantoprazole Sodium (Protonix Ec Tab) 40 mg PO DAILY [facility] Last Admin: 11/30/17 09:43 Dose: 40 mg - Labs Labs: 11/30/17 06:08 11/30/17 06:08 PT 14.9 Seconds (9.8-13.1) H 10/29/17 04:20 INR 1.3 (0.9-1.2) H 10/29/17 04:20 APTT 34.4 Seconds (25.6-37.1) 10/26/17 12:30 Assessment and Plan (1) CANDELARIA (acute kidney injury) Status: Resolved (2) Acute respiratory failure Status: Acute (3) Altered mental status Status: Deleted (4) Pleural effusion, bilateral Status: Resolved (5) Pneumonia Status: Resolved (6) Seizure disorder Status: Suspected (7) Encephalopathy Status: Acute
[2017-12-01] MEDS: metroNIDAZOLE 500mg/100ml NS 100 ML IVPB SCH ×3 (00:25→16:50)
[2017-12-01] MEDS: Metoprolol Succinate 50 mg XL Tab PO SCH (09:36)
[2017-12-01] MEDS: Cholecalciferol 1,000 INTLU TAB PO SCH (09:36)
[2017-12-01] MEDS: Pantoprazole 40 mg EC Tab PO SCH (09:36)
[2017-12-01] MEDS: Lactobacillus Acidophilus 500 MU Cap PO SCH ×2 (09:38→16:50)
[2017-12-01] MEDS: Digoxin 500 mcg/2ml (0.5 mg/2ml) Inj IVP SCH (09:38)
--- NOTE | 2017-12-01 14:03 | CP.PCM.PN ---
Subjective - Date & Time of Evaluation Date of Evaluation: 12/01/17 Time of Evaluation: 11:00 - Subjective Subjective: IV antibiotic renewed weak NAD Objective - Vital Signs/Intake and Output Vital Signs (last 24 hours): Temp Pulse Resp BP Pulse Ox 98.5 F 68 20 135/76 99 12/01/17 13:07 12/01/17 13:07 12/01/17 13:07 12/01/17 13:07 12/01/17 13:07 Intake and Output: 12/01/17 12/01/17 06:59 18:59 Intake Total 900 Output Total 650 Balance 250 - Medications Medications: Current Medications Apixaban (Eliquis) 2.5 mg PO BID [facility] PRN Reason: Protocol Last Admin: 12/01/17 09:34 Dose: 2.5 mg Cholecalciferol (Vitamin D) 5,000 intlu PO DAILY [facility] Last Admin: 12/01/17 09:36 Dose: 5,000 intlu Digoxin (Lanoxin) 0.125 mg IVP DAILY [facility] Last Admin: 12/01/17 09:38 Dose: 0.125 mg Diltiazem HCl (Cardizem) 60 mg PO Q8 [facility] Last Admin: 12/01/17 09:33 Dose: 60 mg Furosemide (Lasix) 40 mg IVP DAILY [facility] Last Admin: 12/01/17 09:35 Dose: 40 mg Metronidazole (Flagyl 500mg/100ml Ns) 100 mls @ 100 mls/hr IVPB Q8 [facility] PRN Reason: Protocol Last Admin: 12/01/17 09:34 Dose: 100 mls/hr Vancomycin HCl 1 gm/ Sodium (Chloride) 250 mls @ 166.667 mls/hr IVPB Q48H [facility] PRN Reason: Protocol Last Admin: 11/30/17 15:00 Dose: 166.667 mls/hr Lactobacillus Acidophilus (Bacid Acidophilus) 1 cap PO BID [facility] Last Admin: 12/01/17 09:38 Dose: 1 cap Lamotrigine (Lamictal) 100 mg PO Q12@0930,2130 [facility] Last Admin: 12/01/17 09:34 Dose: 100 mg Metoprolol Succinate (Toprol Xl) 50 mg PO DAILY [facility] Last Admin: 12/01/17 09:36 Dose: 50 mg Pantoprazole Sodium (Protonix Ec Tab) 40 mg PO DAILY [facility] Last Admin: 12/01/17 09:36 Dose: 40 mg - Labs Labs: 11/30/17 06:08 11/30/17 06:08 PT 14.9 Seconds (9.8-13.1) H 10/29/17 04:20 INR 1.3 (0.9-1.2) H 10/29/17 04:20 APTT 34.4 Seconds (25.6-37.1) 10/26/17 12:30 - Constitutional Appears: Non-toxic, Chronically Ill - Head Exam Head Exam: NORMOCEPHALIC - Eye Exam Eye Exam: PERRL - ENT Exam ENT Exam: Mucous Membranes Dry - Neck Exam Neck Exam: absent: Lymphadenopathy - Respiratory Exam Respiratory Exam: Decreased Breath Sounds - Cardiovascular Exam Cardiovascular Exam: REGULAR RHYTHM - GI/Abdominal Exam GI & Abdominal Exam: Distended, Soft - Rectal Exam Rectal Exam: Deferred - Exam Exam: NORMAL INSPECTION Assessment and Plan (1) CANDELARIA (acute kidney injury) Status: Resolved (2) Acute respiratory failure Status: Acute (3) Altered mental status Status: Deleted (4) Diastolic CHF, acute on chronic Status: Acute (5) Pleural effusion, bilateral Status: Resolved (6) Pneumonia Status: Resolved (7) Aortic valve vegetation Status: Acute
--- NOTE | 2017-12-01 15:27 | CP.PCM.PN ---
Subjective - Date & Time of Evaluation Date of Evaluation: 12/01/17 Time of Evaluation: 11:00 - Subjective Subjective: F/U Respiratory Failure Pt awake, answering simple questions with short words., c/o of R hand pain, at bedside. Objective - Vital Signs/Intake and Output Vital Signs (last 24 hours): Temp Pulse Resp BP Pulse Ox 98.5 F 68 20 135/76 99 12/01/17 13:07 12/01/17 13:07 12/01/17 13:07 12/01/17 13:07 12/01/17 13:07 Intake and Output: 12/01/17 12/01/17 06:59 18:59 Intake Total 900 Output Total 650 Balance 250 - Medications Medications: Current Medications Apixaban (Eliquis) 2.5 mg PO BID [facility] PRN Reason: Protocol Last Admin: 12/01/17 09:34 Dose: 2.5 mg Cholecalciferol (Vitamin D) 5,000 intlu PO DAILY [facility] Last Admin: 12/01/17 09:36 Dose: 5,000 intlu Digoxin (Lanoxin) 0.125 mg IVP DAILY [facility] Last Admin: 12/01/17 09:38 Dose: 0.125 mg Diltiazem HCl (Cardizem) 60 mg PO Q8 [facility] Last Admin: 12/01/17 09:33 Dose: 60 mg Furosemide (Lasix) 40 mg IVP DAILY [facility] Last Admin: 12/01/17 09:35 Dose: 40 mg Metronidazole (Flagyl 500mg/100ml Ns) 100 mls @ 100 mls/hr IVPB Q8 [facility] PRN Reason: Protocol Last Admin: 12/01/17 09:34 Dose: 100 mls/hr Vancomycin HCl 1 gm/ Sodium (Chloride) 250 mls @ 166.667 mls/hr IVPB Q48H [facility] PRN Reason: Protocol Last Admin: 11/30/17 15:00 Dose: 166.667 mls/hr Lactobacillus Acidophilus (Bacid Acidophilus) 1 cap PO BID [facility] Last Admin: 12/01/17 09:38 Dose: 1 cap Lamotrigine (Lamictal) 100 mg PO Q12@0930,2130 [facility] Last Admin: 12/01/17 09:34 Dose: 100 mg Metoprolol Succinate (Toprol Xl) 50 mg PO DAILY [facility] Last Admin: 12/01/17 09:36 Dose: 50 mg Pantoprazole Sodium (Protonix Ec Tab) 40 mg PO DAILY [facility] Last Admin: 12/01/17 09:36 Dose: 40 mg - Labs Labs: 11/30/17 06:08 11/30/17 06:08 PT 14.9 Seconds (9.8-13.1) H 10/29/17 04:20 INR 1.3 (0.9-1.2) H 10/29/17 04:20 APTT 34.4 Seconds (25.6-37.1) 10/26/17 12:30 - Constitutional Appears: Chronically Ill - Head Exam Head Exam: NORMAL INSPECTION - Eye Exam Eye Exam: PERRL - ENT Exam Additional comments: Dry scab nose bridge, NG tube. - Neck Exam Neck Exam: Normal Inspection - Respiratory Exam Respiratory Exam: Decreased Breath Sounds (at bases), Rhonchi (few at bases) - Cardiovascular Exam Cardiovascular Exam: Irregular Rhythm - GI/Abdominal Exam GI & Abdominal Exam: Soft, Normal Bowel Sounds - Extremities Exam Extremities Exam: Tenderness (mild R hand) Additional comments: R SHOULDER REDNESS. - Back Exam Additional comments: Coccyx lesion healing - Neurological Exam Neurological Exam: Awake, CN II-XII Intact Additional comments: Confused, at times with mumbling sounds, generalized weakness. - Psychiatric Exam Psychiatric exam: Anxious - Skin Skin Exam: Warm Assessment and Plan (1) Acute respiratory failure with hypoxia Status: Acute (2) Encephalopathy Status: Acute (3) Pleural effusion, bilateral Status: Acute (4) Diastolic CHF, acute on chronic Status: Acute (5) Hx of seizure disorder Status: Chronic (6) A-fib Status: Chronic (7) CANDELARIA (acute kidney injury) Status: Acute (8) Anemia Status: Chronic (9) Aortic valve vegetation Status: Acute (10) SUSAN (obstructive sleep apnea) Status: Chronic (11) Pulmonary hypertension Status: Chronic (12) Clostridium difficile infection Status: Acute - Assessment and Plan (Free Text) Plan: Continue Vanco, Flagyl and rest of Tx, PT,OT
--- NOTE | 2017-12-01 19:20 | CP.PCM.PN ---
Subjective - Date & Time of Evaluation Date of Evaluation: 12/01/17 Time of Evaluation: 19:13 - Subjective Subjective: He is doing better than yesterday and is more responsive. Normal Vital Signs. No reported seizures and no sudden periods of lethargy similar to the lethargic spell that happenned yesterday and lasted several hours until it resolved. He is still on sub therapeutic dose of Lamictal on 100 mg Q 12 hrs. The known minimal therapeutic dose of Lamictal is 150 mg Q 12hrs with a maximum of 250 mg Q 12 hrs.. He will need to be transferred to an Acute Rehab Facility after discharge due to his weakness due to his infection, history of sickness, old age and prolonged period of admission and non movement and lack of activity and ambulation. Objective - Vital Signs/Intake and Output Vital Signs (last 24 hours): Temp Pulse Resp BP Pulse Ox 97.7 F 66 20 123/65 99 12/01/17 18:53 12/01/17 18:53 12/01/17 18:53 12/01/17 18:53 12/01/17 18:53 Intake and Output: 12/01/17 12/02/17 18:59 06:59 Intake Total 900 Output Total 650 Balance 250 - Medications Medications: Current Medications Apixaban (Eliquis) 2.5 mg PO BID [facility] PRN Reason: Protocol Last Admin: 12/01/17 16:50 Dose: 2.5 mg Cholecalciferol (Vitamin D) 5,000 intlu PO DAILY [facility] Last Admin: 12/01/17 09:36 Dose: 5,000 intlu Digoxin (Lanoxin) 0.125 mg IVP DAILY [facility] Last Admin: 12/01/17 09:38 Dose: 0.125 mg Diltiazem HCl (Cardizem) 60 mg PO Q8 [facility] Last Admin: 12/01/17 16:50 Dose: 60 mg Furosemide (Lasix) 40 mg IVP DAILY [facility] Last Admin: 12/01/17 09:35 Dose: 40 mg Metronidazole (Flagyl 500mg/100ml Ns) 100 mls @ 100 mls/hr IVPB Q8 [facility] PRN Reason: Protocol Last Admin: 12/01/17 16:50 Dose: 100 mls/hr Vancomycin HCl 1 gm/ Sodium (Chloride) 250 mls @ 166.667 mls/hr IVPB Q48H [facility] PRN Reason: Protocol Last Admin: 11/30/17 15:00 Dose: 166.667 mls/hr Lactobacillus Acidophilus (Bacid Acidophilus) 1 cap PO BID [facility] Last Admin: 12/01/17 16:50 Dose: 1 cap Lamotrigine (Lamictal) 100 mg PO Q12@0930,2130 [facility] Last Admin: 12/01/17 09:34 Dose: 100 mg Metoprolol Succinate (Toprol Xl) 50 mg PO DAILY [facility] Last Admin: 12/01/17 09:36 Dose: 50 mg Pantoprazole Sodium (Protonix Ec Tab) 40 mg PO DAILY [facility] Last Admin: 12/01/17 09:36 Dose: 40 mg - Labs Labs: 11/30/17 06:08 11/30/17 06:08 PT 14.9 Seconds (9.8-13.1) H 10/29/17 04:20 INR 1.3 (0.9-1.2) H 10/29/17 04:20 APTT 34.4 Seconds (25.6-37.1) 10/26/17 12:30 Assessment and Plan (1) CANDELARIA (acute kidney injury) Status: Resolved (2) Acute respiratory failure Status: Acute (3) Altered mental status Status: Deleted (4) Pleural effusion, bilateral Status: Resolved (5) Pneumonia Status: Resolved (6) Seizure disorder Status: Suspected (7) Encephalopathy Status: Acute
[2017-12-02] MEDS: metroNIDAZOLE 500mg/100ml NS 100 ML IVPB SCH ×3 (01:01→17:15)
[2017-12-02] MEDS: Pantoprazole 40 mg EC Tab PO SCH (08:21)
[2017-12-02] MEDS: Metoprolol Succinate 50 mg XL Tab PO SCH (08:21)
[2017-12-02] MEDS: Cholecalciferol 1,000 INTLU TAB PO SCH (08:22)
[2017-12-02] MEDS: Digoxin 500 mcg/2ml (0.5 mg/2ml) Inj IVP SCH (08:24)
[2017-12-02] MEDS: Lactobacillus Acidophilus 500 MU Cap PO SCH ×2 (08:25→17:15)
--- NOTE | 2017-12-02 15:17 | CP.PCM.PN ---
Subjective - Date & Time of Evaluation Date of Evaluation: 12/02/17 Time of Evaluation: 10:00 - Subjective Subjective: F/U Respiratory failure. Pt awake, answer questions, at bedside. Objective - Vital Signs/Intake and Output Vital Signs (last 24 hours): Temp Pulse Resp BP Pulse Ox 98 F 73 18 121/56 L 100 12/02/17 12:22 12/02/17 12:22 12/02/17 12:22 12/02/17 12:22 12/02/17 12:22 Intake and Output: 12/02/17 12/02/17 06:59 18:59 Intake Total 800 Output Total 650 Balance 150 - Medications Medications: Current Medications Apixaban (Eliquis) 2.5 mg PO BID [facility] PRN Reason: Protocol Last Admin: 12/02/17 08:21 Dose: 2.5 mg Cholecalciferol (Vitamin D) 5,000 intlu PO DAILY [facility] Last Admin: 12/02/17 08:22 Dose: 5,000 intlu Digoxin (Lanoxin) 0.125 mg IVP DAILY [facility] Last Admin: 12/02/17 08:24 Dose: 0.125 mg Diltiazem HCl (Cardizem) 60 mg PO Q8 [facility] Last Admin: 12/02/17 08:20 Dose: 60 mg Furosemide (Lasix) 40 mg IVP DAILY [facility] Last Admin: 12/02/17 08:22 Dose: 40 mg Metronidazole (Flagyl 500mg/100ml Ns) 100 mls @ 100 mls/hr IVPB Q8 [facility] PRN Reason: Protocol Last Admin: 12/02/17 08:20 Dose: 100 mls/hr Vancomycin HCl 1 gm/ Sodium (Chloride) 250 mls @ 166.667 mls/hr IVPB Q48H [facility] PRN Reason: Protocol Last Admin: 11/30/17 15:00 Dose: 166.667 mls/hr Lactobacillus Acidophilus (Bacid Acidophilus) 1 cap PO BID [facility] Last Admin: 12/02/17 08:25 Dose: 1 cap Lamotrigine (Lamictal) 100 mg PO Q12@0930,2130 [facility] Last Admin: 12/02/17 08:30 Dose: 100 mg Metoprolol Succinate (Toprol Xl) 50 mg PO DAILY [facility] Last Admin: 12/02/17 08:21 Dose: 50 mg Pantoprazole Sodium (Protonix Ec Tab) 40 mg PO DAILY [facility] Last Admin: 12/02/17 08:21 Dose: 40 mg - Labs Labs: 11/30/17 06:08 11/30/17 06:08 PT 14.9 Seconds (9.8-13.1) H 10/29/17 04:20 INR 1.3 (0.9-1.2) H 10/29/17 04:20 APTT 34.4 Seconds (25.6-37.1) 10/26/17 12:30 - Constitutional Appears: Chronically Ill - Head Exam Head Exam: NORMAL INSPECTION - Eye Exam Eye Exam: PERRL - ENT Exam Additional comments: Dry scab nose bridge. NG tube in place - Neck Exam Neck Exam: Normal Inspection - Respiratory Exam Respiratory Exam: Decreased Breath Sounds (at bases), Rhonchi (few at bases) - Cardiovascular Exam Cardiovascular Exam: Irregular Rhythm - GI/Abdominal Exam GI & Abdominal Exam: Soft, Normal Bowel Sounds - Extremities Exam Additional comments: Wound R shoulder. - Back Exam Back Exam: tenderness (mild R hand) Additional comments: Coccyx lesion healing - Neurological Exam Neurological Exam: Awake, CN II-XII Intact Additional comments: Confused, generalized weakness, mumbling sounds at times. - Psychiatric Exam Psychiatric exam: Anxious - Skin Skin Exam: Warm Assessment and Plan (1) Acute respiratory failure with hypoxia Status: Acute (2) Encephalopathy Status: Acute (3) Pleural effusion, bilateral Status: Resolved (4) Diastolic CHF, acute on chronic Status: Acute (5) Hx of seizure disorder Status: Chronic (6) A-fib Status: Chronic (7) CANDELARIA (acute kidney injury) Status: Resolved (8) Anemia Status: Chronic (9) Aortic valve vegetation Status: Acute (10) SUSAN (obstructive sleep apnea) Status: Chronic (11) Pulmonary hypertension Status: Chronic (12) Clostridium difficile infection Status: Acute - Assessment and Plan (Free Text) Plan: Continue Vanco, Flagyl, OT, PT and rest of Tx.
--- NOTE | 2017-12-03 00:15 | CP.PCM.PN ---
Subjective - Date & Time of Evaluation Date of Evaluation: 12/02/17 Time of Evaluation: 22:00 - Subjective Subjective: No seizures are documented. Lethargy is waxing and waning. He is responsive and says few words. Awake, Alert, Oriented. He is still on Lamictal 100 mg Q 12 hrs. We will follow. Objective - Vital Signs/Intake and Output Vital Signs (last 24 hours): Temp Pulse Resp BP Pulse Ox 97.7 F 62 18 115/58 L 96 12/02/17 19:09 12/02/17 19:09 12/02/17 19:09 12/02/17 19:09 12/02/17 19:09 Intake and Output: 12/02/17 12/03/17 18:59 06:59 Intake Total 800 Output Total 650 Balance 150 - Medications Medications: Current Medications Apixaban (Eliquis) 2.5 mg PO BID [facility] PRN Reason: Protocol Last Admin: 12/02/17 17:13 Dose: 2.5 mg Cholecalciferol (Vitamin D) 5,000 intlu PO DAILY [facility] Last Admin: 12/02/17 08:22 Dose: 5,000 intlu Digoxin (Lanoxin) 0.125 mg IVP DAILY [facility] Last Admin: 12/02/17 08:24 Dose: 0.125 mg Diltiazem HCl (Cardizem) 60 mg PO Q8 [facility] Last Admin: 12/02/17 17:12 Dose: 60 mg Furosemide (Lasix) 40 mg IVP DAILY [facility] Last Admin: 12/02/17 08:22 Dose: 40 mg Metronidazole (Flagyl 500mg/100ml Ns) 100 mls @ 100 mls/hr IVPB Q8 [facility] PRN Reason: Protocol Last Admin: 12/02/17 17:15 Dose: 100 mls/hr Vancomycin HCl 1 gm/ Sodium (Chloride) 250 mls @ 166.667 mls/hr IVPB Q48H [facility] PRN Reason: Protocol Last Admin: 12/02/17 15:58 Dose: 166.667 mls/hr Lactobacillus Acidophilus (Bacid Acidophilus) 1 cap PO BID [facility] Last Admin: 12/02/17 17:15 Dose: 1 cap Lamotrigine (Lamictal) 100 mg PO Q12@0930,2130 [facility] Last Admin: 12/02/17 20:56 Dose: 100 mg Metoprolol Succinate (Toprol Xl) 50 mg PO DAILY [facility] Last Admin: 12/02/17 08:21 Dose: 50 mg Pantoprazole Sodium (Protonix Ec Tab) 40 mg PO DAILY [facility] Last Admin: 12/02/17 08:21 Dose: 40 mg - Labs Labs: 11/30/17 06:08 11/30/17 06:08 PT 14.9 Seconds (9.8-13.1) H 10/29/17 04:20 INR 1.3 (0.9-1.2) H 10/29/17 04:20 APTT 34.4 Seconds (25.6-37.1) 10/26/17 12:30 Assessment and Plan (1) CANDELARIA (acute kidney injury) Status: Resolved (2) Acute respiratory failure Status: Acute (3) Altered mental status Status: Deleted (4) Pleural effusion, bilateral Status: Resolved (5) Pneumonia Status: Resolved (6) Seizure disorder Status: Suspected (7) Encephalopathy Status: Acute
[2017-12-03] MEDS: metroNIDAZOLE 500mg/100ml NS 100 ML IVPB SCH ×3 (01:04→16:52)
[2017-12-03] MEDS: Lactobacillus Acidophilus 500 MU Cap PO SCH ×2 (08:49→16:52)
[2017-12-03] MEDS: Digoxin 500 mcg/2ml (0.5 mg/2ml) Inj IVP SCH (08:49)
[2017-12-03] MEDS: Pantoprazole 40 mg EC Tab PO SCH (08:51)
[2017-12-03] MEDS: Metoprolol Succinate 50 mg XL Tab PO SCH (08:51)
[2017-12-03] MEDS: Cholecalciferol 1,000 INTLU TAB PO SCH (08:52)
--- NOTE | 2017-12-03 10:39 | CP.PCM.PN ---
Subjective - Date & Time of Evaluation Date of Evaluation: 12/03/17 Time of Evaluation: 10:00 - Subjective Subjective: weak NAD IV rx reordered Objective - Vital Signs/Intake and Output Vital Signs (last 24 hours): Temp Pulse Resp BP Pulse Ox 98.3 F 77 16 154/53 H 100 12/03/17 07:49 12/03/17 08:51 12/03/17 07:49 12/03/17 08:51 12/03/17 07:49 Intake and Output: 12/03/17 12/03/17 06:59 18:59 Intake Total 900 Output Total 700 Balance 200 - Medications Medications: Current Medications Apixaban (Eliquis) 2.5 mg PO BID [facility] PRN Reason: Protocol Last Admin: 12/03/17 08:50 Dose: 2.5 mg Cholecalciferol (Vitamin D) 5,000 intlu PO DAILY [facility] Last Admin: 12/03/17 08:52 Dose: 5,000 intlu Digoxin (Lanoxin) 0.125 mg IVP DAILY [facility] Last Admin: 12/03/17 08:49 Dose: 0.125 mg Diltiazem HCl (Cardizem) 60 mg PO Q8 [facility] Last Admin: 12/03/17 08:50 Dose: 60 mg Metronidazole (Flagyl 500mg/100ml Ns) 100 mls @ 100 mls/hr IVPB Q8 [facility] PRN Reason: Protocol Last Admin: 12/03/17 08:49 Dose: 100 mls/hr Vancomycin HCl 1 gm/ Sodium (Chloride) 250 mls @ 166.667 mls/hr IVPB Q48H [facility] PRN Reason: Protocol Last Admin: 12/02/17 15:58 Dose: 166.667 mls/hr Lactobacillus Acidophilus (Bacid Acidophilus) 1 cap PO BID [facility] Last Admin: 12/03/17 08:49 Dose: 1 cap Lamotrigine (Lamictal) 100 mg PO Q12@0930,2130 [facility] Last Admin: 12/03/17 08:51 Dose: 100 mg Metoprolol Succinate (Toprol Xl) 50 mg PO DAILY [facility] Last Admin: 12/03/17 08:51 Dose: 50 mg Pantoprazole Sodium (Protonix Ec Tab) 40 mg PO DAILY [facility] Last Admin: 12/03/17 08:51 Dose: 40 mg - Labs Labs: 11/30/17 06:08 11/30/17 06:08 PT 14.9 Seconds (9.8-13.1) H 10/29/17 04:20 INR 1.3 (0.9-1.2) H 10/29/17 04:20 APTT 34.4 Seconds (25.6-37.1) 10/26/17 12:30 - Constitutional Appears: Non-toxic, Cachectic, Chronically Ill - Head Exam Head Exam: NORMOCEPHALIC - Eye Exam Eye Exam: PERRL. absent: Scleral icterus - ENT Exam ENT Exam: Mucous Membranes Dry - Neck Exam Neck Exam: absent: Lymphadenopathy - Respiratory Exam Respiratory Exam: Decreased Breath Sounds - Cardiovascular Exam Cardiovascular Exam: REGULAR RHYTHM - GI/Abdominal Exam GI & Abdominal Exam: Distended Assessment and Plan (1) CANDELARIA (acute kidney injury) Status: Resolved (2) Acute respiratory failure Status: Acute (3) Altered mental status Status: Deleted (4) Diastolic CHF, acute on chronic Status: Acute (5) Pleural effusion, bilateral Status: Resolved (6) Pneumonia Status: Resolved (7) Aortic valve vegetation Status: Acute
--- NOTE | 2017-12-03 19:45 | CP.PCM.PN ---
Subjective - Date & Time of Evaluation Date of Evaluation: 12/03/17 Time of Evaluation: 12:00 - Subjective Subjective: F/U respiratory failure. Pt letargic, no response to verbal stimuli, at bedside. Objective - Vital Signs/Intake and Output Vital Signs (last 24 hours): Temp Pulse Resp BP Pulse Ox 98.3 F 73 20 122/62 100 12/03/17 16:16 12/03/17 16:52 12/03/17 16:16 12/03/17 16:52 12/03/17 16:16 Intake and Output: 12/03/17 12/04/17 18:59 06:59 Intake Total 800 Output Total 1500 Balance -700 - Medications Medications: Current Medications Apixaban (Eliquis) 2.5 mg PO BID [facility] PRN Reason: Protocol Last Admin: 12/03/17 16:53 Dose: 2.5 mg Cholecalciferol (Vitamin D) 5,000 intlu PO DAILY [facility] Last Admin: 12/03/17 08:52 Dose: 5,000 intlu Diltiazem HCl (Cardizem) 60 mg PO Q8 [facility] Last Admin: 12/03/17 16:52 Dose: 60 mg Metronidazole (Flagyl 500mg/100ml Ns) 100 mls @ 100 mls/hr IVPB Q8 [facility] PRN Reason: Protocol Last Admin: 12/03/17 16:52 Dose: 100 mls/hr Vancomycin HCl 750 mg/ Sodium (Chloride) 250 mls @ 166.667 mls/hr IVPB Q48H [facility] PRN Reason: Protocol Last Admin: 12/03/17 14:51 Dose: Not Given Lactobacillus Acidophilus (Bacid Acidophilus) 1 cap PO BID [facility] Last Admin: 12/03/17 16:52 Dose: 1 cap Lamotrigine (Lamictal) 150 mg PO Q12@0930,2130 [facility] Metoprolol Succinate (Toprol Xl) 50 mg PO DAILY [facility] Last Admin: 12/03/17 08:51 Dose: 50 mg Pantoprazole Sodium (Protonix Ec Tab) 40 mg PO DAILY [facility] Last Admin: 12/03/17 08:51 Dose: 40 mg - Labs Labs: 11/30/17 06:08 11/30/17 06:08 PT 14.9 Seconds (9.8-13.1) H 10/29/17 04:20 INR 1.3 (0.9-1.2) H 10/29/17 04:20 APTT 34.4 Seconds (25.6-37.1) 10/26/17 12:30 - Constitutional Appears: Chronically Ill - Head Exam Head Exam: NORMAL INSPECTION - Eye Exam Eye Exam: PERRL - ENT Exam Additional comments: Dry scab nose bridge, NG tube. - Neck Exam Neck Exam: Normal Inspection - Respiratory Exam Respiratory Exam: Decreased Breath Sounds (at bases), Rhonchi (few) - Cardiovascular Exam Cardiovascular Exam: Irregular Rhythm - GI/Abdominal Exam GI & Abdominal Exam: Soft, Normal Bowel Sounds - Extremities Exam Extremities Exam: Tenderness (mild R hand.) - Back Exam Additional comments: Coccyx lesion healing well. - Neurological Exam Additional comments: Lethargic, generalized weakness. - Psychiatric Exam Additional comments: Calm. - Skin Skin Exam: Warm Assessment and Plan (1) Acute respiratory failure with hypoxia Status: Acute (2) Encephalopathy Status: Acute (3) Pleural effusion, bilateral Status: Resolved (4) Diastolic CHF, acute on chronic Status: Acute (5) Hx of seizure disorder Status: Chronic (6) A-fib Status: Chronic (7) CANDELARIA (acute kidney injury) Status: Resolved (8) Anemia Status: Chronic (9) Aortic valve vegetation Status: Acute (10) SUSAN (obstructive sleep apnea) Status: Chronic (11) Pulmonary hypertension Status: Chronic (12) Clostridium difficile infection Status: Acute - Assessment and Plan (Free Text) Plan: Spoked with attempt to increase the Lamictal to 150 bid,as discussed with Dr Cole episodes of letharginess may be due to seizure activity , continue Tereseo , Flagyl , Cardizem , Metropolol , Eliquis , PT and rest of Tx.
--- NOTE | 2017-12-03 23:09 | CP.PCM.PN ---
Subjective - Date & Time of Evaluation Date of Evaluation: 12/03/17 Time of Evaluation: 20:00 - Subjective Subjective: His Lamictal was increased by Dr Escamilla to 150 mg Q 12 hrs after convincing the . He has no lethargy Status. No Seizures are reported. He has sacral bed sores being taken care of. Normal V.S. Objective - Vital Signs/Intake and Output Vital Signs (last 24 hours): Temp Pulse Resp BP Pulse Ox 98.1 F 60 18 120/64 97 12/03/17 20:17 12/03/17 20:18 12/03/17 20:17 12/03/17 20:17 12/03/17 20:17 Intake and Output: 12/03/17 12/04/17 18:59 06:59 Intake Total 800 Output Total 1500 Balance -700 - Medications Medications: Current Medications Apixaban (Eliquis) 2.5 mg PO BID [facility] PRN Reason: Protocol Last Admin: 12/03/17 16:53 Dose: 2.5 mg Cholecalciferol (Vitamin D) 5,000 intlu PO DAILY [facility] Last Admin: 12/03/17 08:52 Dose: 5,000 intlu Diltiazem HCl (Cardizem) 60 mg PO Q8 [facility] Last Admin: 12/03/17 16:52 Dose: 60 mg Metronidazole (Flagyl 500mg/100ml Ns) 100 mls @ 100 mls/hr IVPB Q8 [facility] PRN Reason: Protocol Last Admin: 12/03/17 16:52 Dose: 100 mls/hr Vancomycin HCl 750 mg/ Sodium (Chloride) 250 mls @ 166.667 mls/hr IVPB Q48H [facility] PRN Reason: Protocol Last Admin: 12/03/17 14:51 Dose: Not Given Lactobacillus Acidophilus (Bacid Acidophilus) 1 cap PO BID [facility] Last Admin: 12/03/17 16:52 Dose: 1 cap Lamotrigine (Lamictal) 150 mg PO Q12@0930,2130 [facility] Last Admin: 12/03/17 22:07 Dose: 150 mg Metoprolol Succinate (Toprol Xl) 50 mg PO DAILY [facility] Last Admin: 12/03/17 08:51 Dose: 50 mg Pantoprazole Sodium (Protonix Ec Tab) 40 mg PO DAILY [facility] Last Admin: 12/03/17 08:51 Dose: 40 mg - Labs Labs: 11/30/17 06:08 11/30/17 06:08 PT 14.9 Seconds (9.8-13.1) H 10/29/17 04:20 INR 1.3 (0.9-1.2) H 10/29/17 04:20 APTT 34.4 Seconds (25.6-37.1) 10/26/17 12:30 Assessment and Plan (1) CANDELARIA (acute kidney injury) Status: Resolved (2) Acute respiratory failure Status: Acute (3) Altered mental status Status: Deleted (4) Pleural effusion, bilateral Status: Resolved (5) Pneumonia Status: Resolved (6) Seizure disorder Status: Suspected (7) Encephalopathy Status: Acute
[2017-12-04] MEDS: metroNIDAZOLE 500mg/100ml NS 100 ML IVPB SCH ×3 (00:41→17:19)
[2017-12-04] MEDS: Lactobacillus Acidophilus 500 MU Cap PO SCH ×2 (08:47→17:19)
[2017-12-04] MEDS: Pantoprazole 40 mg EC Tab PO SCH (08:48)
[2017-12-04] MEDS: Metoprolol Succinate 50 mg XL Tab PO SCH (08:48)
[2017-12-04] MEDS: Cholecalciferol 1,000 INTLU TAB PO SCH (08:50)
--- NOTE | 2017-12-04 12:56 | CP.PCM.PN ---
Subjective - Date & Time of Evaluation Date of Evaluation: 12/04/17 Time of Evaluation: 11:30 - Subjective Subjective: F/U Respiratory failure. Pt lethargic, arousable Objective - Vital Signs/Intake and Output Vital Signs (last 24 hours): Temp Pulse Resp BP Pulse Ox 97.6 F 76 20 124/66 98 12/04/17 12:01 12/04/17 12:01 12/04/17 12:01 12/04/17 12:01 12/04/17 12:01 Intake and Output: 12/04/17 12/04/17 06:59 18:59 Intake Total 700 Output Total 750 Balance -50 - Medications Medications: Current Medications Apixaban (Eliquis) 2.5 mg PO BID [facility] PRN Reason: Protocol Last Admin: 12/04/17 08:47 Dose: 2.5 mg Cholecalciferol (Vitamin D) 5,000 intlu PO DAILY [facility] Last Admin: 12/04/17 08:50 Dose: 5,000 intlu Diltiazem HCl (Cardizem) 60 mg PO Q8 [facility] Last Admin: 12/04/17 08:48 Dose: 60 mg Metronidazole (Flagyl 500mg/100ml Ns) 100 mls @ 100 mls/hr IVPB Q8 [facility] PRN Reason: Protocol Last Admin: 12/04/17 08:48 Dose: 100 mls/hr Vancomycin HCl 750 mg/ Sodium (Chloride) 250 mls @ 166.667 mls/hr IVPB Q48H [facility] PRN Reason: Protocol Last Admin: 12/04/17 08:49 Dose: 166.667 mls/hr Lactobacillus Acidophilus (Bacid Acidophilus) 1 cap PO BID [facility] Last Admin: 12/04/17 08:47 Dose: 1 cap Lamotrigine (Lamictal) 150 mg PO Q12@0930,2130 [facility] Last Admin: 12/04/17 08:49 Dose: 150 mg Metoprolol Succinate (Toprol Xl) 50 mg PO DAILY [facility] Last Admin: 12/04/17 08:48 Dose: 50 mg Pantoprazole Sodium (Protonix Ec Tab) 40 mg PO DAILY [facility] Last Admin: 12/04/17 08:48 Dose: 40 mg - Labs Labs: 11/30/17 06:08 11/30/17 06:08 PT 14.9 Seconds (9.8-13.1) H 10/29/17 04:20 INR 1.3 (0.9-1.2) H 10/29/17 04:20 APTT 34.4 Seconds (25.6-37.1) 10/26/17 12:30 - Constitutional Appears: Chronically Ill - Head Exam Head Exam: NORMAL INSPECTION - Eye Exam Eye Exam: PERRL - ENT Exam Additional comments: Dry scab nose bridge, NG tube. - Neck Exam Neck Exam: Normal Inspection - Respiratory Exam Respiratory Exam: Decreased Breath Sounds (at bases), Rhonchi (few at bases) - Cardiovascular Exam Cardiovascular Exam: Irregular Rhythm - GI/Abdominal Exam GI & Abdominal Exam: Soft, Normal Bowel Sounds - Extremities Exam Extremities Exam: Tenderness (mild R hand) - Back Exam Additional comments: Coccyx lesion healing - Neurological Exam Additional comments: Lethargic, arousable, generalized weakness. - Psychiatric Exam Additional comments: Calm - Skin Skin Exam: Warm Assessment and Plan (1) Acute respiratory failure with hypoxia Status: Acute (2) Encephalopathy Status: Acute (3) Pleural effusion, bilateral Status: Resolved (4) Diastolic CHF, acute on chronic Status: Acute (5) Hx of seizure disorder Status: Chronic (6) A-fib Status: Chronic (7) CANDELARIA (acute kidney injury) Status: Resolved (8) Anemia Status: Chronic (9) Aortic valve vegetation Status: Acute (10) SUSAN (obstructive sleep apnea) Status: Chronic (11) Pulmonary hypertension Status: Chronic (12) Clostridium difficile infection Status: Acute - Assessment and Plan (Free Text) Plan: f/u Pt for neurological status on Lamictal, swallow eval to asses PT if can tolerate fine chop diet, continue current Tx, PT.
--- NOTE | 2017-12-04 16:33 | RAD ---
HISTORY: NG tube placement COMPARISON: 11/16/2017 FINDINGS: LUNGS: Hazy opacity at both lung bases may reflect infiltrate or atelectasis. PLEURA: Small bilateral pleural effusion. No pneumothorax. CARDIOVASCULAR: Heart size grossly normal. Nasogastric tube, right PICC catheter unchanged. Ayaan tracheal tube. Permanent pacemaker. Ayaan tracheal tube positioned cannot be adequately evaluated on this image due to underpenetration. OSSEOUS STRUCTURES: No significant abnormalities. VISUALIZED UPPER ABDOMEN: Normal. OTHER FINDINGS: None. IMPRESSION: Bibasilar opacities, possible pneumonia. Small bilateral pleural effusion. Lines and tubes grossly unchanged. See above.
[2017-12-04] MEDS ORDERED: Chlorhexidine Gluconate 1 APPL/PKT TP ONE (18:47)
[2017-12-05] MEDS: metroNIDAZOLE 500mg/100ml NS 100 ML IVPB SCH ×3 (00:02→17:09)
--- NOTE | 2017-12-05 00:34 | CP.PCM.PN ---
Subjective - Date & Time of Evaluation Date of Evaluation: 12/04/17 Time of Evaluation: 22:00 - Subjective Subjective: The complaining that he is lethargic but awakable. He has no sudden lethargy now and his lethargy is reversible by being verbally and physically stimulated. He is on Lamictal 150 mg Q 12 hrs. Objective - Vital Signs/Intake and Output Vital Signs (last 24 hours): Temp Pulse Resp BP Pulse Ox 98.5 F 100 H 18 164/84 H 98 12/05/17 00:02 12/05/17 00:02 12/05/17 00:02 12/05/17 00:02 12/05/17 00:02 - Medications Medications: Current Medications Apixaban (Eliquis) 2.5 mg PO BID [facility] PRN Reason: Protocol Last Admin: 12/04/17 17:17 Dose: 2.5 mg Cholecalciferol (Vitamin D) 5,000 intlu PO DAILY [facility] Last Admin: 12/04/17 08:50 Dose: 5,000 intlu Diltiazem HCl (Cardizem) 60 mg PO Q8 [facility] Last Admin: 12/05/17 00:01 Dose: 60 mg Metronidazole (Flagyl 500mg/100ml Ns) 100 mls @ 100 mls/hr IVPB Q8 [facility] PRN Reason: Protocol Last Admin: 12/05/17 00:02 Dose: 100 mls/hr Vancomycin HCl 750 mg/ Sodium (Chloride) 250 mls @ 166.667 mls/hr IVPB Q48H [facility] PRN Reason: Protocol Last Admin: 12/04/17 08:49 Dose: 166.667 mls/hr Lactobacillus Acidophilus (Bacid Acidophilus) 1 cap PO BID [facility] Last Admin: 12/04/17 17:19 Dose: 1 cap Lamotrigine (Lamictal) 150 mg PO Q12@0930,2130 [facility] Last Admin: 12/04/17 20:44 Dose: 150 mg Metoprolol Succinate (Toprol Xl) 50 mg PO DAILY [facility] Last Admin: 12/04/17 08:48 Dose: 50 mg Pantoprazole Sodium (Protonix Ec Tab) 40 mg PO DAILY [facility] Last Admin: 12/04/17 08:48 Dose: 40 mg - Labs Labs: 11/30/17 06:08 01/20/18 06:08 PT 14.9 Seconds (9.8-13.1) H 10/29/17 04:20 INR 1.3 (0.9-1.2) H 10/29/17 04:20 APTT 34.4 Seconds (25.6-37.1) 10/26/17 12:30 Assessment and Plan (1) CANDELARIA (acute kidney injury) Status: Resolved (2) Acute respiratory failure Status: Acute (3) Altered mental status Status: Deleted (4) Pleural effusion, bilateral Status: Resolved (5) Pneumonia Status: Resolved (6) Seizure disorder Status: Suspected (7) Encephalopathy Status: Acute
[2017-12-05] MEDS: Pantoprazole 40 mg EC Tab PO SCH (09:45)
[2017-12-05] MEDS: Metoprolol Succinate 50 mg XL Tab PO SCH (09:48)
[2017-12-05] MEDS: Cholecalciferol 1,000 INTLU TAB PO SCH (09:49)
[2017-12-05] MEDS: Lactobacillus Acidophilus 500 MU Cap PO SCH ×2 (10:01→17:09)
--- NOTE | 2017-12-05 13:09 | CP.PCM.PN ---
Subjective - Date & Time of Evaluation Date of Evaluation: 12/05/17 Time of Evaluation: 13:30 - Subjective Subjective: awake , answer questions , Patient's art bedside Objective - Vital Signs/Intake and Output Vital Signs (last 24 hours): Temp Pulse Resp BP Pulse Ox 97.7 F 96 H 20 157/84 H 100 12/05/17 08:00 12/05/17 09:48 12/05/17 08:00 12/05/17 09:48 12/05/17 08:00 Intake and Output: 12/05/17 12/05/17 06:59 18:59 Intake Total 800 Output Total 1200 Balance -400 - Medications Medications: Current Medications Apixaban (Eliquis) 2.5 mg PO BID [facility] PRN Reason: Protocol Last Admin: 12/05/17 09:41 Dose: 2.5 mg Cholecalciferol (Vitamin D) 5,000 intlu PO DAILY [facility] Last Admin: 12/05/17 09:49 Dose: 5,000 intlu Diltiazem HCl (Cardizem) 60 mg PO Q8 [facility] Last Admin: 12/05/17 09:41 Dose: 60 mg Metronidazole (Flagyl 500mg/100ml Ns) 100 mls @ 100 mls/hr IVPB Q8 [facility] PRN Reason: Protocol Last Admin: 12/05/17 09:42 Dose: 100 mls/hr Vancomycin HCl 750 mg/ Sodium (Chloride) 250 mls @ 166.667 mls/hr IVPB Q48H [facility] PRN Reason: Protocol Last Admin: 12/04/17 08:49 Dose: 166.667 mls/hr Lactobacillus Acidophilus (Bacid Acidophilus) 1 cap PO BID [facility] Last Admin: 12/05/17 10:01 Dose: 1 cap Lamotrigine (Lamictal) 150 mg PO Q12@0930,2130 [facility] Last Admin: 12/05/17 09:43 Dose: 150 mg Metoprolol Succinate (Toprol Xl) 50 mg PO DAILY [facility] Last Admin: 12/05/17 09:48 Dose: 50 mg Pantoprazole Sodium (Protonix Ec Tab) 40 mg PO DAILY [facility] Last Admin: 12/05/17 09:45 Dose: 40 mg - Labs Labs: 11/30/17 06:08 11/30/17 06:08 PT 14.9 Seconds (9.8-13.1) H 10/29/17 04:20 INR 1.3 (0.9-1.2) H 10/29/17 04:20 APTT 34.4 Seconds (25.6-37.1) 10/26/17 12:30 - Constitutional Appears: Chronically Ill - Head Exam Head Exam: NORMAL INSPECTION - Eye Exam Eye Exam: PERRL - ENT Exam Additional comments: scab nose bridge - Neck Exam Neck Exam: Normal Inspection - Respiratory Exam Respiratory Exam: Decreased Breath Sounds (at bases) - Cardiovascular Exam Cardiovascular Exam: Irregular Rhythm - GI/Abdominal Exam GI & Abdominal Exam: Soft, Normal Bowel Sounds - Extremities Exam Extremities Exam: Normal Inspection - Back Exam Additional comments: wound healing - Neurological Exam Additional comments: awake , generalized weakness move all extremities against gravity on commands - Skin Skin Exam: Warm Assessment and Plan (1) Acute respiratory failure with hypoxia Status: Acute (2) Encephalopathy Status: Acute (3) Pleural effusion, bilateral Status: Acute (4) Diastolic CHF, acute on chronic Status: Acute (5) Hx of seizure disorder Status: Chronic (6) A-fib Status: Chronic (7) CANDELARIA (acute kidney injury) Status: Acute (8) Anemia Status: Chronic (9) Aortic valve vegetation Status: Acute (10) SUSAN (obstructive sleep apnea) Status: Chronic (11) Pulmonary hypertension Status: Chronic (12) Clostridium difficile infection Status: Acute - Assessment and Plan (Free Text) Plan: continue O2 NC , BIPAP overnight , PT and rest of treatment
--- NOTE | 2017-12-05 23:02 | CP.PCM.PN ---
Subjective - Date & Time of Evaluation Date of Evaluation: 12/05/17 Time of Evaluation: 21:00 - Subjective Subjective: Easily arousable when he sleeps. He is responsive and interactive with very limited words, answering only with one word. Awake, alert and oriented. No seizures are seen or documented, he is less lethargic. Objective - Vital Signs/Intake and Output Vital Signs (last 24 hours): Temp Pulse Resp BP Pulse Ox 98 F 76 14 146/66 99 12/05/17 20:24 12/05/17 20:24 12/05/17 20:24 12/05/17 20:24 12/05/17 20:24 Intake and Output: 12/05/17 12/06/17 18:59 06:59 Intake Total 2260 Output Total 800 Balance 1460 - Medications Medications: Current Medications Apixaban (Eliquis) 2.5 mg PO BID [facility] PRN Reason: Protocol Last Admin: 12/05/17 17:06 Dose: 2.5 mg Cholecalciferol (Vitamin D) 5,000 intlu PO DAILY [facility] Last Admin: 12/05/17 09:49 Dose: 5,000 intlu Diltiazem HCl (Cardizem) 60 mg PO Q8 [facility] Last Admin: 12/05/17 17:06 Dose: 60 mg Metronidazole (Flagyl 500mg/100ml Ns) 100 mls @ 100 mls/hr IVPB Q8 [facility] PRN Reason: Protocol Last Admin: 12/05/17 17:09 Dose: 100 mls/hr Vancomycin HCl 750 mg/ Sodium (Chloride) 250 mls @ 166.667 mls/hr IVPB Q48H [facility] PRN Reason: Protocol Last Admin: 12/04/17 08:49 Dose: 166.667 mls/hr Lactobacillus Acidophilus (Bacid Acidophilus) 1 cap PO BID [facility] Last Admin: 12/05/17 17:09 Dose: 1 cap Lamotrigine (Lamictal) 150 mg PO Q12@0930,2130 [facility] Last Admin: 12/05/17 21:05 Dose: 150 mg Metoprolol Succinate (Toprol Xl) 50 mg PO DAILY [facility] Last Admin: 12/05/17 09:48 Dose: 50 mg Pantoprazole Sodium (Protonix Ec Tab) 40 mg PO DAILY [facility] Last Admin: 12/05/17 09:45 Dose: 40 mg - Labs Labs: 11/30/17 06:08 11/30/17 06:08 PT 14.9 Seconds (9.8-13.1) H 10/29/17 04:20 INR 1.3 (0.9-1.2) H 10/29/17 04:20 APTT 34.4 Seconds (25.6-37.1) 10/26/17 12:30 Assessment and Plan (1) CANDELARIA (acute kidney injury) Status: Resolved (2) Acute respiratory failure Status: Acute (3) Altered mental status Status: Deleted (4) Pleural effusion, bilateral Status: Resolved (5) Pneumonia Status: Resolved (6) Seizure disorder Status: Suspected (7) Encephalopathy Status: Acute
[2017-12-06] MEDS: metroNIDAZOLE 500mg/100ml NS 100 ML IVPB SCH ×2 (01:31→10:01)
[2017-12-06] MEDS: Metoprolol Succinate 50 mg XL Tab PO SCH (10:09)
[2017-12-06] MEDS: Pantoprazole 40 mg EC Tab PO SCH (10:09)
[2017-12-06] MEDS: Lactobacillus Acidophilus 500 MU Cap PO SCH ×2 (10:09→17:51)
[2017-12-06] MEDS: Cholecalciferol 1,000 INTLU TAB PO SCH (10:10)
--- NOTE | 2017-12-06 14:59 | CP.PCM.PN ---
Subjective - Date & Time of Evaluation Date of Evaluation: 12/06/17 Time of Evaluation: 11:00 - Subjective Subjective: seen on rounds weak and bedridden confused NAD on IV Vanco q48h pending repeat echo Objective - Vital Signs/Intake and Output Vital Signs (last 24 hours): Temp Pulse Resp BP Pulse Ox 98.4 F 73 20 114/72 97 12/06/17 12:59 12/06/17 12:59 12/06/17 12:59 12/06/17 12:59 12/06/17 12:59 - Medications Medications: Current Medications Apixaban (Eliquis) 2.5 mg PO BID [facility] PRN Reason: Protocol Last Admin: 12/06/17 10:09 Dose: 2.5 mg Cholecalciferol (Vitamin D) 5,000 intlu PO DAILY [facility] Last Admin: 12/06/17 10:10 Dose: 5,000 intlu Diltiazem HCl (Cardizem) 60 mg PO Q8 [facility] Last Admin: 12/06/17 10:08 Dose: 60 mg Vancomycin HCl 750 mg/ Sodium (Chloride) 250 mls @ 166.667 mls/hr IVPB Q48H [facility] PRN Reason: Protocol Last Admin: 12/06/17 10:07 Dose: 166.667 mls/hr Lactobacillus Acidophilus (Bacid Acidophilus) 1 cap PO BID [facility] Last Admin: 12/06/17 10:09 Dose: 1 cap Lamotrigine (Lamictal) 150 mg PO Q12@0930,2130 [facility] Last Admin: 12/06/17 10:10 Dose: 150 mg Metoprolol Succinate (Toprol Xl) 50 mg PO DAILY [facility] Last Admin: 12/06/17 10:09 Dose: 50 mg Pantoprazole Sodium (Protonix Ec Tab) 40 mg PO DAILY [facility] Last Admin: 12/06/17 10:09 Dose: 40 mg - Labs Labs: 11/30/17 06:08 11/30/17 06:08 PT 14.9 Seconds (9.8-13.1) H 10/29/17 04:20 INR 1.3 (0.9-1.2) H 10/29/17 04:20 APTT 34.4 Seconds (25.6-37.1) 10/26/17 12:30 - Constitutional Appears: Non-toxic, Confused, Cachectic, Chronically Ill - Head Exam Head Exam: NORMOCEPHALIC - Eye Exam Eye Exam: PERRL. absent: Scleral icterus - ENT Exam ENT Exam: Mucous Membranes Dry - Neck Exam Neck Exam: absent: Lymphadenopathy - Respiratory Exam Respiratory Exam: Decreased Breath Sounds - Cardiovascular Exam Cardiovascular Exam: REGULAR RHYTHM - GI/Abdominal Exam GI & Abdominal Exam: Distended, Soft - Rectal Exam Rectal Exam: Deferred - Exam Exam: NORMAL INSPECTION - Extremities Exam Extremities Exam: absent: Pedal Edema - Back Exam Back Exam: absent: CVA tenderness (L), CVA tenderness (R) Assessment and Plan (1) CANDELARIA (acute kidney injury) Status: Resolved (2) Acute respiratory failure Status: Acute (3) Altered mental status Status: Deleted (4) Diastolic CHF, acute on chronic Status: Acute (5) Pleural effusion, bilateral Status: Resolved (6) Pneumonia Status: Resolved (7) Aortic valve vegetation Status: Acute
--- NOTE | 2017-12-06 17:14 | CP.PCM.PN ---
Subjective - Date & Time of Evaluation Date of Evaluation: 12/06/17 Time of Evaluation: 15:00 - Subjective Subjective: lethargic , more difficult to arouse Objective - Vital Signs/Intake and Output Vital Signs (last 24 hours): Temp Pulse Resp BP Pulse Ox 97.6 F 92 H 20 137/80 100 12/06/17 16:18 12/06/17 16:18 12/06/17 16:18 12/06/17 16:18 12/06/17 16:18 - Medications Medications: Current Medications Cholecalciferol (Vitamin D) 5,000 intlu PO DAILY [facility] Last Admin: 12/06/17 10:10 Dose: 5,000 intlu Diltiazem HCl (Cardizem) 60 mg PO Q8 [facility] Last Admin: 12/06/17 10:08 Dose: 60 mg Vancomycin HCl 750 mg/ Sodium (Chloride) 250 mls @ 166.667 mls/hr IVPB Q48H [facility] PRN Reason: Protocol Last Admin: 12/06/17 10:07 Dose: 166.667 mls/hr Lactobacillus Acidophilus (Bacid Acidophilus) 1 cap PO BID [facility] Last Admin: 12/06/17 10:09 Dose: 1 cap Lamotrigine (Lamictal) 150 mg PO Q12@0930,2130 [facility] Last Admin: 12/06/17 10:10 Dose: 150 mg Metoprolol Succinate (Toprol Xl) 50 mg PO DAILY [facility] Last Admin: 12/06/17 10:09 Dose: 50 mg Pantoprazole Sodium (Protonix Ec Tab) 40 mg PO DAILY [facility] Last Admin: 12/06/17 10:09 Dose: 40 mg - Labs Labs: 11/30/17 06:08 11/30/17 06:08 PT 14.9 Seconds (9.8-13.1) H 10/29/17 04:20 INR 1.3 (0.9-1.2) H 10/29/17 04:20 APTT 34.4 Seconds (25.6-37.1) 10/26/17 12:30 - Constitutional Appears: Chronically Ill - Head Exam Head Exam: NORMAL INSPECTION - Eye Exam Eye Exam: PERRL - ENT Exam Additional comments: scab nose bridge , NG tube - Neck Exam Neck Exam: Normal Inspection - Respiratory Exam Respiratory Exam: Decreased Breath Sounds (at bases) - Cardiovascular Exam Cardiovascular Exam: Irregular Rhythm - GI/Abdominal Exam GI & Abdominal Exam: Soft, Normal Bowel Sounds - Extremities Exam Extremities Exam: Normal Inspection - Back Exam Additional comments: lesions healing - Neurological Exam Additional comments: lethargic , arousable , answer questions , follows commands , generalized weakness - Skin Skin Exam: Warm Assessment and Plan (1) Acute respiratory failure with hypoxia Status: Acute (2) Encephalopathy Status: Acute (3) Pleural effusion, bilateral Status: Acute (4) Diastolic CHF, acute on chronic Status: Acute (5) Hx of seizure disorder Status: Chronic (6) A-fib Status: Chronic (7) CANDELARIA (acute kidney injury) Status: Acute (8) Anemia Status: Chronic (9) Aortic valve vegetation Status: Acute (10) SUSAN (obstructive sleep apnea) Status: Chronic (11) Pulmonary hypertension Status: Chronic - Assessment and Plan (Free Text) Plan: more lethargic today, continue PT and current treatment
--- NOTE | 2017-12-07 00:04 | CP.PCM.PN ---
Subjective - Date & Time of Evaluation Date of Evaluation: 12/06/17 Time of Evaluation: 22:00 - Subjective Subjective: No seizures, no sudden periods of lethargy are reported. He is suffering from respiratory problems and is not in distress. He is on Lamictal 150 mg Q 12hrs. Objective - Vital Signs/Intake and Output Vital Signs (last 24 hours): Temp Pulse Resp BP Pulse Ox 97.7 F 67 20 133/74 98 12/06/17 19:31 12/06/17 19:31 12/06/17 19:31 12/06/17 19:31 12/06/17 19:31 Intake and Output: 12/06/17 12/07/17 18:59 06:59 Intake Total 1390 Output Total 550 Balance 840 - Medications Medications: Current Medications Cholecalciferol (Vitamin D) 5,000 intlu PO DAILY [facility] Last Admin: 12/06/17 10:10 Dose: 5,000 intlu Diltiazem HCl (Cardizem) 60 mg PO Q8 [facility] Last Admin: 12/06/17 17:51 Dose: 60 mg Vancomycin HCl 750 mg/ Sodium (Chloride) 250 mls @ 166.667 mls/hr IVPB Q48H [facility] PRN Reason: Protocol Last Admin: 12/06/17 10:07 Dose: 166.667 mls/hr Lactobacillus Acidophilus (Bacid Acidophilus) 1 cap PO BID [facility] Last Admin: 12/06/17 17:51 Dose: 1 cap Lamotrigine (Lamictal) 150 mg PO Q12@0930,2130 [facility] Last Admin: 12/06/17 21:59 Dose: 150 mg Metoprolol Succinate (Toprol Xl) 50 mg PO DAILY [facility] Last Admin: 12/06/17 10:09 Dose: 50 mg Pantoprazole Sodium (Protonix Ec Tab) 40 mg PO DAILY [facility] Last Admin: 12/06/17 10:09 Dose: 40 mg - Labs Labs: 11/30/17 06:08 11/30/17 06:08 PT 14.9 Seconds (9.8-13.1) H 10/29/17 04:20 INR 1.3 (0.9-1.2) H 10/29/17 04:20 APTT 34.4 Seconds (25.6-37.1) 12/16/17 12:30 Assessment and Plan (1) CANDELARIA (acute kidney injury) Status: Resolved (2) Acute respiratory failure Status: Acute (3) Altered mental status Status: Deleted (4) Pleural effusion, bilateral Status: Resolved (5) Pneumonia Status: Resolved (6) Seizure disorder Status: Suspected (7) Encephalopathy Status: Acute
[2017-12-07] MEDS: Pantoprazole 40 mg EC Tab PO SCH (09:04)
[2017-12-07] MEDS: Metoprolol Succinate 50 mg XL Tab PO SCH (09:04)
[2017-12-07] MEDS: Cholecalciferol 1,000 INTLU TAB PO SCH (09:09)
[2017-12-07] MEDS: Lactobacillus Acidophilus 500 MU Cap PO SCH ×2 (09:14→17:42)
--- NOTE | 2017-12-07 14:07 | CP.PCM.PN ---
Subjective - Date & Time of Evaluation Date of Evaluation: 12/07/17 Time of Evaluation: 14:30 - Subjective Subjective: F/U Respiratory failure. lethargiic,arousable, answer questions Objective - Vital Signs/Intake and Output Vital Signs (last 24 hours): Temp Pulse Resp BP Pulse Ox 97.3 F L 110 H 18 138/85 93 L 12/07/17 12:47 12/07/17 12:47 12/07/17 12:47 12/07/17 12:47 12/07/17 12:47 Intake and Output: 12/07/17 12/07/17 06:59 18:59 Intake Total 800 Output Total 450 Balance 350 - Medications Medications: Current Medications Apixaban (Eliquis) 2.5 mg PO BID [facility] PRN Reason: Protocol Cholecalciferol (Vitamin D) 5,000 intlu PO DAILY [facility] Last Admin: 12/07/17 09:09 Dose: 5,000 intlu Diltiazem HCl (Cardizem) 60 mg PO Q8 [facility] Last Admin: 12/07/17 09:03 Dose: 60 mg Vancomycin HCl 750 mg/ Sodium (Chloride) 250 mls @ 166.667 mls/hr IVPB Q48H [facility] PRN Reason: Protocol Last Admin: 12/06/17 10:07 Dose: 166.667 mls/hr Lactobacillus Acidophilus (Bacid Acidophilus) 1 cap PO BID [facility] Last Admin: 12/07/17 09:14 Dose: 1 cap Lamotrigine (Lamictal) 150 mg PO Q12@0930,2130 [facility] Last Admin: 12/07/17 09:08 Dose: 150 mg Metoprolol Succinate (Toprol Xl) 50 mg PO DAILY [facility] Last Admin: 12/07/17 09:04 Dose: 50 mg Pantoprazole Sodium (Protonix Ec Tab) 40 mg PO DAILY [facility] Last Admin: 12/07/17 09:04 Dose: 40 mg - Labs Labs: 11/30/17 06:08 11/30/17 06:08 PT 14.9 Seconds (9.8-13.1) H 10/29/17 04:20 INR 1.3 (0.9-1.2) H 10/29/17 04:20 APTT 34.4 Seconds (25.6-37.1) 12/16/17 12:30 - Constitutional Appears: Chronically Ill - Head Exam Head Exam: NORMAL INSPECTION - Eye Exam Eye Exam: PERRL - ENT Exam Additional comments: Scab nose bridge, NG tube - Neck Exam Neck Exam: Normal Inspection - Respiratory Exam Respiratory Exam: Decreased Breath Sounds (at bases) - Cardiovascular Exam Cardiovascular Exam: Irregular Rhythm - GI/Abdominal Exam GI & Abdominal Exam: Soft, Normal Bowel Sounds - Extremities Exam Extremities Exam: Normal Inspection - Back Exam Additional comments: Lesions healing - Neurological Exam Additional comments: Lethargic, arousable, answer questions, follows commands, generalized weakness. - Skin Skin Exam: Warm Assessment and Plan (1) Acute respiratory failure with hypoxia Status: Acute (2) Encephalopathy Status: Acute (3) Pleural effusion, bilateral Status: Acute (4) Diastolic CHF, acute on chronic Status: Acute (5) Hx of seizure disorder Status: Chronic (6) A-fib Status: Chronic (7) CANDELARIA (acute kidney injury) Status: Acute (8) Anemia Status: Chronic (9) Aortic valve vegetation Status: Acute (10) SUSAN (obstructive sleep apnea) Status: Chronic (11) Pulmonary hypertension Status: Chronic - Assessment and Plan (Free Text) Plan: continue Xopenex ,Atrovent , Lamictal , Eliquis , Cardizem , Toprol , PT and rest of treatment
--- NOTE | 2017-12-07 15:27 | RAD ---
HISTORY: PNA COMPARISON: Comparison chest 12/04/2017 FINDINGS: Small effusion. No change right-sided PICC line. Note that the study is limited due to kyphotic patient positioning and or tube angulation. As a result, the the lung apices are partially obscured by overlying facial soft tissue and mandible artifact. LUNGS: Further progression of opacification left mid to lower lung field. Findings likely represent some combination of atelectasis/infiltrate and effusion. Mild right lower lobe atelectasis and or infiltrate with small effusion. . PLEURA: No significant pleural effusion identified, no pneumothorax apparent. CARDIOVASCULAR: Heart size difficult to assess due to silhouetting of the left and to a lesser degree right inferior cardiac borders. Heart does appear enlarged based on prior study. No change single lead pacemaker. OSSEOUS STRUCTURES: No significant abnormalities. VISUALIZED UPPER ABDOMEN: Normal. OTHER FINDINGS: None. IMPRESSION: Further progression of opacification left mid to lower lung field. Findings likely represent some combination of atelectasis/infiltrate and effusion. Mild right lower lobe atelectasis and or infiltrate with small effusion. .
[2017-12-07 16:17] LABS: MEAN CELL VOLUME 94.1 fl (80.0-94.0); MEAN CORPUSCULAR HEMOGLOBIN 30.4 pg (27.0-31.0); MEAN CORPUSCULAR HGB CONC 32.3 g/dL (33.0-37.0); RBC 3.61 Mil/uL (4.40-5.90); RED CELL DISTRIBUTION WIDTH 18.3 % (11.5-14.5); WHITE BLOOD COUNT 10.7 K/uL (4.8-10.8)
[2017-12-07 16:31] LABS: ALB/GLOB RATIO 0.8 (1.0-2.1); ALBUMIN 3.2 g/dL (3.5-5.0); ALT/SGPT 26 U/L (21-72); AST/SGOT 36 U/L (17-59); BLOOD UREA NITROGEN 25 mg/dl (9-20); CALCIUM 8.8 mg/dL (8.4-10.2); GFR AFRICAN-AMERICAN > 60; GFR NON-AFRICAN AMERICAN > 60
[2017-12-07] MEDS: Levalbuterol 0.63 MG/3 ML Inhal Soln UD INH PRN (19:02)
[2017-12-07] MEDS: Ipratropium 0.02% Inhal Soln (0.5 mg/2.5 ml) UD IH PRN (19:02)
--- NOTE | 2017-12-08 01:19 | CP.PCM.PN ---
Subjective - Date & Time of Evaluation Date of Evaluation: 12/07/17 Time of Evaluation: 23:00 - Subjective Subjective: He has A Fib and Bilateral Pneumonia, and Dr Escamilla asked shipping specialist for assessment. Dr Austin saw him. He has no seizures and is having no acute lethargic spells. He is tired and lethargic, but it is easy to wake him up. IMPRESSION of CXR of 12/07/2017: Further progression of opacification left mid to lower lung field. Findings likely represent some combination of atelectasis/infiltrate and effusion. Mild right lower lobe atelectasis and or infiltrate with small effusion. . Objective - Vital Signs/Intake and Output Vital Signs (last 24 hours): Temp Pulse Resp BP Pulse Ox 98.7 F 106 H 18 150/79 96 12/08/17 00:00 12/08/17 00:00 12/08/17 00:00 12/08/17 00:00 12/08/17 00:00 - Medications Medications: Current Medications Apixaban (Eliquis) 2.5 mg PO BID [facility] PRN Reason: Protocol Last Admin: 12/07/17 17:40 Dose: 2.5 mg Cholecalciferol (Vitamin D) 5,000 intlu PO DAILY [facility] Last Admin: 12/07/17 09:09 Dose: 5,000 intlu Diltiazem HCl (Cardizem) 60 mg PO Q8 [facility] Last Admin: 12/07/17 17:39 Dose: 60 mg Vancomycin HCl 750 mg/ Sodium (Chloride) 250 mls @ 166.667 mls/hr IVPB Q48H [facility] PRN Reason: Protocol Last Admin: 12/06/17 10:07 Dose: 166.667 mls/hr Ipratropium [place] (Atrovent) 0.5 mg IH RQ4 PRN PRN Reason: Shortness of Breath Last Admin: 12/07/17 19:02 Dose: 0.5 mg Lactobacillus Acidophilus (Bacid Acidophilus) 1 cap PO BID [facility] Last Admin: 12/07/17 17:42 Dose: 1 cap Lamotrigine (Lamictal) 150 mg PO Q12@0930,2130 [facility] Last Admin: 12/07/17 22:30 Dose: 150 mg Levalbuterol HCl (Xopenex) 0.63 mg INH RQ4 PRN PRN Reason: Shortness of Breath Last Admin: 12/07/17 19:02 Dose: 0.63 mg Metoprolol Succinate (Toprol Xl) 50 mg PO DAILY [facility] Last Admin: 12/07/17 09:04 Dose: 50 mg Pantoprazole Sodium (Protonix Ec Tab) 40 mg PO DAILY [facility] Last Admin: 12/07/17 09:04 Dose: 40 mg - Labs Labs: 12/07/17 16:11 12/07/17 16:11 PT 14.9 Seconds (9.8-13.1) H 10/29/17 04:20 INR 1.3 (0.9-1.2) H 10/29/17 04:20 APTT 34.4 Seconds (25.6-37.1) 10/26/17 12:30 Assessment and Plan (1) CANDELARIA (acute kidney injury) Status: Resolved (2) Acute respiratory failure Status: Acute (3) Altered mental status Status: Deleted (4) Pleural effusion, bilateral Status: Resolved (5) Pneumonia Status: Resolved (6) Seizure disorder Status: Suspected (7) Encephalopathy Status: Acute
[2017-12-08] MEDS: Metoprolol Succinate 50 mg XL Tab PO SCH (08:30)
[2017-12-08] MEDS: Cholecalciferol 1,000 INTLU TAB PO SCH (08:31)
[2017-12-08] MEDS: Pantoprazole 40 mg EC Tab PO SCH (08:31)
[2017-12-08] MEDS: Lactobacillus Acidophilus 500 MU Cap PO SCH ×2 (09:30→16:15)
--- NOTE | 2017-12-08 13:15 | CP.PCM.PN ---
Subjective - Date & Time of Evaluation Date of Evaluation: 12/08/17 Time of Evaluation: 09:00 - Subjective Subjective: events noted new infiltrates and /or effusions with atelectasis no fever lethargic NAD Objective - Vital Signs/Intake and Output Vital Signs (last 24 hours): Temp Pulse Resp BP Pulse Ox 97.8 F 122 H 18 160/78 H 97 12/08/17 12:24 12/08/17 12:24 12/08/17 12:24 12/08/17 12:24 12/08/17 12:24 Intake and Output: 12/08/17 12/08/17 06:59 18:59 Intake Total 800 Output Total 550 Balance 250 - Medications Medications: Current Medications Apixaban (Eliquis) 2.5 mg PO BID [facility] PRN Reason: Protocol Last Admin: 12/08/17 08:31 Dose: 2.5 mg Cholecalciferol (Vitamin D) 5,000 intlu PO DAILY [facility] Last Admin: 12/08/17 08:31 Dose: 5,000 intlu Diltiazem HCl (Cardizem) 60 mg PO Q8 [facility] Last Admin: 12/08/17 08:30 Dose: 60 mg Vancomycin HCl 750 mg/ Sodium (Chloride) 250 mls @ 166.667 mls/hr IVPB Q48H [facility] PRN Reason: Protocol Last Admin: 12/08/17 08:43 Dose: 166.667 mls/hr Ipratropium [place] (Atrovent) 0.5 mg IH RQ4 PRN PRN Reason: Shortness of Breath Last Admin: 12/07/17 19:02 Dose: 0.5 mg Lactobacillus Acidophilus (Bacid Acidophilus) 1 cap PO BID [facility] Last Admin: 12/07/17 17:42 Dose: 1 cap Lamotrigine (Lamictal) 150 mg PO Q12@0930,2130 [facility] Last Admin: 12/08/17 08:48 Dose: 150 mg Levalbuterol HCl (Xopenex) 0.63 mg INH RQ4 PRN PRN Reason: Shortness of Breath Last Admin: 12/07/17 19:02 Dose: 0.63 mg Metoprolol Succinate (Toprol Xl) 50 mg PO DAILY [facility] Last Admin: 12/08/17 08:30 Dose: 50 mg Pantoprazole Sodium (Protonix Ec Tab) 40 mg PO DAILY [facility] Last Admin: 12/08/17 08:31 Dose: 40 mg - Labs Labs: 12/07/17 16:11 12/07/17 16:11 PT 14.9 Seconds (9.8-13.1) H 10/29/17 04:20 INR 1.3 (0.9-1.2) H 10/29/17 04:20 APTT 34.4 Seconds (25.6-37.1) 10/26/17 12:30 - Constitutional Appears: Non-toxic, Confused, Cachectic, Chronically Ill - Head Exam Head Exam: NORMOCEPHALIC - Eye Exam Eye Exam: PERRL. absent: Scleral icterus - ENT Exam ENT Exam: Mucous Membranes Dry - Neck Exam Neck Exam: absent: Lymphadenopathy - Respiratory Exam Respiratory Exam: Decreased Breath Sounds, Prolonged Expiratory Phase, Rhonchi - Cardiovascular Exam Cardiovascular Exam: REGULAR RHYTHM, +S1, +S2 - GI/Abdominal Exam GI & Abdominal Exam: Distended, Soft. absent: Tenderness - Rectal Exam Rectal Exam: Deferred - Exam Exam: NORMAL INSPECTION - Extremities Exam Extremities Exam: Pedal Edema. absent: Calf Tenderness, Tenderness - Back Exam Back Exam: absent: CVA tenderness (L), CVA tenderness (R) - Neurological Exam Neurological Exam: Altered - Psychiatric Exam Psychiatric exam: Depressed Assessment and Plan (1) CANDELARIA (acute kidney injury) Status: Resolved (2) Acute respiratory failure Status: Acute (3) Altered mental status Status: Deleted (4) Diastolic CHF, acute on chronic Status: Acute (5) Pleural effusion, bilateral Status: Resolved (6) Pneumonia Status: Resolved (7) Aortic valve vegetation Status: Acute - Assessment and Plan (Free Text) Assessment: worsening effusions / infiltrtates will reculture poor prognosis rx as per Dr Cole
[2017-12-08] MEDS: Ipratropium 0.02% Inhal Soln (0.5 mg/2.5 ml) UD IH PRN (17:49)
[2017-12-08] MEDS: Levalbuterol 0.63 MG/3 ML Inhal Soln UD INH PRN (17:49)
--- NOTE | 2017-12-08 21:24 | CP.PCM.PN ---
Subjective - Date & Time of Evaluation Date of Evaluation: 12/08/17 Time of Evaluation: 10:00 - Subjective Subjective: F/U Respiratory failure Patient lethargic previously , eating with help of his , answer questions Objective - Vital Signs/Intake and Output Vital Signs (last 24 hours): Temp Pulse Resp BP Pulse Ox 99.0 F 95 H 18 146/70 93 L 12/08/17 20:41 12/08/17 20:41 12/08/17 20:41 12/08/17 20:41 12/08/17 20:41 Intake and Output: 12/08/17 12/09/17 18:59 06:59 Intake Total 800 Output Total 700 Balance 100 - Medications Medications: Current Medications Apixaban (Eliquis) 2.5 mg PO BID [facility] PRN Reason: Protocol Last Admin: 12/08/17 16:15 Dose: 2.5 mg Cholecalciferol (Vitamin D) 5,000 intlu PO DAILY [facility] Last Admin: 12/08/17 08:31 Dose: 5,000 intlu Diltiazem HCl (Cardizem) 60 mg PO Q8 [facility] Last Admin: 12/08/17 16:14 Dose: 60 mg Vancomycin HCl 750 mg/ Sodium (Chloride) 250 mls @ 166.667 mls/hr IVPB Q48H [facility] PRN Reason: Protocol Last Admin: 12/08/17 08:43 Dose: 166.667 mls/hr Ipratropium [place] (Atrovent) 0.5 mg IH RQ4 PRN PRN Reason: Shortness of Breath Last Admin: 12/08/17 17:49 Dose: 0.5 mg Lamotrigine (Lamictal) 150 mg PO Q12@0930,2130 [facility] Last Admin: 12/08/17 08:48 Dose: 150 mg Levalbuterol HCl (Xopenex) 0.63 mg INH RQ4 PRN PRN Reason: Shortness of Breath Last Admin: 12/08/17 17:49 Dose: 0.63 mg Metoprolol Succinate (Toprol Xl) 50 mg PO DAILY [facility] Last Admin: 12/08/17 08:30 Dose: 50 mg Pantoprazole Sodium (Protonix Ec Tab) 40 mg PO DAILY [facility] Last Admin: 12/08/17 08:31 Dose: 40 mg - Labs Labs: 12/07/17 16:11 12/07/17 16:11 PT 14.9 Seconds (9.8-13.1) H 10/29/17 04:20 INR 1.3 (0.9-1.2) H 10/29/17 04:20 APTT 34.4 Seconds (25.6-37.1) 10/26/17 12:30 - Constitutional Appears: Chronically Ill - Head Exam Head Exam: NORMAL INSPECTION - Eye Exam Eye Exam: PERRL - ENT Exam Additional comments: Scab nose bridge, NG tube - Neck Exam Neck Exam: Normal Inspection - Respiratory Exam Respiratory Exam: Decreased Breath Sounds (at bases) - Cardiovascular Exam Cardiovascular Exam: Irregular Rhythm - GI/Abdominal Exam GI & Abdominal Exam: Soft, Normal Bowel Sounds - Extremities Exam Extremities Exam: Normal Inspection - Back Exam Additional comments: Lesions healing - Neurological Exam Additional comments: Lethargic, arousable, answer questions, follows commands, generalized weakness - Skin Skin Exam: Warm Assessment and Plan (1) Acute respiratory failure with hypoxia Status: Acute (2) Encephalopathy Status: Acute (3) Pleural effusion, bilateral Status: Acute (4) Diastolic CHF, acute on chronic Status: Acute (5) Hx of seizure disorder Status: Chronic (6) A-fib Status: Chronic (7) CANDELARIA (acute kidney injury) Status: Acute (8) Anemia Status: Chronic (9) Aortic valve vegetation Status: Acute (10) SUSAN (obstructive sleep apnea) Status: Chronic (11) Pulmonary hypertension Status: Chronic - Assessment and Plan (Free Text) Plan: Patient developed increased heart rate and respiratory distress yesterday, CXR increased L pleural effusion , LLL Atelectasis , infiltrate, today in no acute distress , f/u CT Chest am, continue rest of Tx , f/u ID
--- NOTE | 2017-12-08 22:17 | CP.PCM.PN ---
Subjective - Date & Time of Evaluation Date of Evaluation: 12/08/17 Time of Evaluation: 22:14 - Subjective Subjective: He is doing better, his pulmonary infection is seen on CXR and he is being treated for it. He is fluctuation of his O2 saturation and tachycardia. There is no documented seizures on Lamictal 150 mg Q 12 hrs. He is responsive and interactive, awake, alert, oriented, weak speech. He is at times sleepy. Objective - Vital Signs/Intake and Output Vital Signs (last 24 hours): Temp Pulse Resp BP Pulse Ox 99.0 F 95 H 18 146/70 93 L 12/08/17 20:41 12/08/17 20:41 12/08/17 20:41 12/08/17 20:41 12/08/17 20:41 Intake and Output: 12/08/17 12/09/17 18:59 06:59 Intake Total 800 Output Total 700 Balance 100 - Medications Medications: Current Medications Apixaban (Eliquis) 2.5 mg PO BID [facility] PRN Reason: Protocol Last Admin: 12/08/17 16:15 Dose: 2.5 mg Cholecalciferol (Vitamin D) 5,000 intlu PO DAILY [facility] Last Admin: 12/08/17 08:31 Dose: 5,000 intlu Diltiazem HCl (Cardizem) 60 mg PO Q8 [facility] Last Admin: 12/08/17 16:14 Dose: 60 mg Vancomycin HCl 750 mg/ Sodium (Chloride) 250 mls @ 166.667 mls/hr IVPB Q48H [facility] PRN Reason: Protocol Last Admin: 12/08/17 08:43 Dose: 166.667 mls/hr Ipratropium [place] (Atrovent) 0.5 mg IH RQ4 PRN PRN Reason: Shortness of Breath Last Admin: 12/08/17 17:49 Dose: 0.5 mg Lamotrigine (Lamictal) 150 mg PO Q12@0930,2130 [facility] Last Admin: 12/08/17 08:48 Dose: 150 mg Levalbuterol HCl (Xopenex) 0.63 mg INH RQ4 PRN PRN Reason: Shortness of Breath Last Admin: 12/08/17 17:49 Dose: 0.63 mg Metoprolol Succinate (Toprol Xl) 50 mg PO DAILY [facility] Last Admin: 12/08/17 08:30 Dose: 50 mg Pantoprazole Sodium (Protonix Ec Tab) 40 mg PO DAILY [facility] Last Admin: 12/08/17 08:31 Dose: 40 mg - Labs Labs: 12/07/17 16:11 12/07/17 16:11 PT 14.9 Seconds (9.8-13.1) H 10/29/17 04:20 INR 1.3 (0.9-1.2) H 10/29/17 04:20 APTT 34.4 Seconds (25.6-37.1) 10/26/17 12:30 Assessment and Plan (1) CANDELARIA (acute kidney injury) Status: Resolved (2) Acute respiratory failure Status: Acute (3) Altered mental status Status: Deleted (4) Pleural effusion, bilateral Status: Resolved (5) Pneumonia Status: Resolved (6) Seizure disorder Status: Suspected (7) Encephalopathy Status: Acute
[2017-12-09] MEDS ORDERED: Metoprolol 1 mg/ml Inj IVP STA ×2 (06:14→22:41)
--- NOTE | 2017-12-09 06:16 | CP.CCUPN ---
CCU Subjective - Physician Review Subjective (Free Text): 12/09/17 06:15 Called to eval patient for a fib with RVR. Patient BP and O2 sat stable, HR 150- 160s. Patient comfortable. Patient on diltiazem gtt at 12.5 mg/hr. Will give a dose of metoprolol 5 mg IV x 1 to see if this aids in reducing HR. No immediate need to move patient to ICU. CCU Objective - Vital Signs / Intake & Output Intake and Output (Last 8hrs): Intake & Output 12/08/17 12/08/17 12/09/17 14:59 22:59 06:59 Intake Total 800 0 Output Total 700 Balance 100 0 Weight 117 lb 0.5 oz Intake: IV 0 Tube Feeding 600 Free Water Flush 200 Output: Urine 700 Urethral (Wang) 700 Other: # Bowel Movements 1 - Physical Exam Head: Positive for: Atraumatic, Normocephalic, Other (NG tube) Pupils: Positive for: PERRL, Sluggish Extroacular Muscles: Positive for: EOMI Conjunctiva: Positive for: Normal. Negative for: Icteric Ears: Positive for: Normal Mouth: Positive for: Moist Mucous Membranes Pharnyx: Negative for: ERYTHEMA Neck: Positive for: Normal Range of Motion. Negative for: JVD Respiratory/Chest: Positive for: Good Air Exchange, Respiratory Distress, Decreased Breath Sounds, Rhonchi (upper airway rhonchi), Tachypneic. Negative for: Accessory Muscle Use, Wheezes Cardiovascular: Positive for: Murmurs, Irregular Rhythm, Peripheal Pulses Present, Tachycardic. Negative for: Normal S1, S2, Rub Abdomen: Positive for: Normal Bowel Sounds. Negative for: Tenderness, Distention, Peritoneal Signs Upper Extremity: Positive for: Edema Lower Extremity: Positive for: Edema, NORMAL PULSES. Negative for: CALF TENDERNESS, Cyanosis Neurological: Positive for: Other (withdraws to deep pain) Skin: Positive for: Warm, Dry. Negative for: Rashes Psychiatric: Positive for: Alert, Lethargic (mental status waxwes and wanes). Negative for: Oriented x 3, Anxious, Agitated - Medications Active Medications: Active Medications Generic Name Dose Route Start Last Admin Trade Name Freq PRN Reason Stop Dose Admin Apixaban 2.5 mg 12/07/17 17:30 12/08/17 16:15 Eliquis PO 2.5 mg BID [facility] Administration Protocol Cholecalciferol 5,000 intlu 10/18/17 09:00 12/08/17 08:31 Vitamin D PO 5,000 intlu DAILY [facility] Administration Diltiazem HCl 60 mg 12/05/17 01:00 12/09/17 01:00 Cardizem PO Not Given Q8 [facility] Vancomycin HCl 750 mg/ Sodium 250 mls @ 166.667 mls/hr 12/04/17 09:00 08:43 Chloride IVPB 166.667 mls/hr Q48H [facility] Administration Protocol Diltiazem HCl 125 mg/ Sodium 125 mls @ 5 mls/hr 12/09/17 02:45 12/09/17 05:32 Chloride IV 12/10/17 02:44 12.5 mg/hr .Q24H ONE 12.5 mls/hr Protocol Titration 5 MG/HR Ipratropium [place] 0.5 mg 12/07/17 18:22 12/08/17 17:49 Atrovent IH 0.5 mg RQ4 PRN Administration Shortness of Breath Lamotrigine 150 mg 12/03/17 12:22 12/08/17 22:50 Lamictal PO 150 mg Q12@0930,2130 [facility] Administration Levalbuterol HCl 0.63 mg 12/07/17 18:21 12/08/17 17:49 Xopenex INH 0.63 mg RQ4 PRN Administration Shortness of Breath Metoprolol Succinate 50 mg 11/14/17 09:00 12/08/17 08:30 Toprol Xl PO 50 mg DAILY [facility] Administration Metoprolol Tartrate 5 mg 12/09/17 06:14 Lopressor IVP 12/09/17 06:15 STAT STA Pantoprazole Sodium 40 mg 11/12/17 17:00 12/08/17 08:31 Protonix Ec Tab PO 40 mg DAILY [facility] Administration - Patient Studies Lab Studies: Lab Studies 12/08/17 Range/Units 15:00 Procalcitonin 0.10 L (0.19-0.49) NG/ML Laboratory Results - last 24 hr 12/08/17 15:00 Procalcitonin 0.10 L Fingerstick Blood Sugar Results: 83 Critical Care Progress Note - Nutrition Nutrition: Nutrition Category Date Time Status Dysphagia/Modified Consistency Diet [DIET] Diets 11/20/17 Breakfast Active
[2017-12-09] MEDS ORDERED: Metoprolol 1 mg/ml Inj IVP ONE (06:20)
[2017-12-09 07:51] LABS: BASO % 0.4 % (0.0-2.0); EOS % 0.4 % (0.0-4.0); HEMOGLOBIN 11.2 g/dL (12.0-18.0); LYMPH # 0.8 K/uL (1.0-4.3); LYMPH % 7.7 % (20.0-40.0); MEAN CELL VOLUME 94.5 fl (80.0-94.0); MEAN CORPUSCULAR HEMOGLOBIN 30.9 pg (27.0-31.0); MEAN CORPUSCULAR HGB CONC 32.7 g/dL (33.0-37.0); MEAN PLATELET VOLUME 7.6 fl (7.2-11.7); MONO % 9.7 % (0.0-10.0); NEUT # 8.5 K/uL (1.8-7.0); NEUT % 81.8 % (50.0-75.0); PLATELET COUNT 346 K/uL (130-400); RBC 3.63 Mil/uL (4.40-5.90); RED CELL DISTRIBUTION WIDTH 17.8 % (11.5-14.5); WHITE BLOOD COUNT 10.4 K/uL (4.8-10.8)
[2017-12-09 08:59] LABS: ALB/GLOB RATIO 0.7 (1.0-2.1); ALBUMIN 3.3 g/dL (3.5-5.0); ALT/SGPT 17 U/L (21-72); AST/SGOT 24 U/L (17-59); BLOOD UREA NITROGEN 24 mg/dl (9-20); GFR AFRICAN-AMERICAN > 60; GFR NON-AFRICAN AMERICAN > 60
[2017-12-09] MEDS: Pantoprazole 40 mg EC Tab PO SCH (09:09)
[2017-12-09] MEDS: Metoprolol Succinate 50 mg XL Tab PO SCH (09:10)
[2017-12-09] MEDS: Cholecalciferol 1,000 INTLU TAB PO SCH (09:11)
[2017-12-09] MEDS ORDERED: Sodium Chloride 3% for Inhalation 4 ML VIAL.NEB IH PRN (12:42)
--- NOTE | 2017-12-09 13:12 | CP.PCM.PN ---
Subjective - Date & Time of Evaluation Date of Evaluation: 12/09/17 Time of Evaluation: 08:00 - Subjective Subjective: recultured iv cefepime reordered Objective - Vital Signs/Intake and Output Vital Signs (last 24 hours): Temp Pulse Resp BP Pulse Ox 99.1 F 91 H 18 156/81 H 100 12/09/17 12:51 12/09/17 12:51 12/09/17 12:51 12/09/17 12:51 12/09/17 12:51 Intake and Output: 12/09/17 12/09/17 06:59 18:59 Intake Total 0 Balance 0 - Medications Medications: Current Medications Apixaban (Eliquis) 2.5 mg PO BID [facility] PRN Reason: Protocol Last Admin: 12/09/17 09:10 Dose: 2.5 mg Cholecalciferol (Vitamin D) 5,000 intlu PO DAILY [facility] Last Admin: 12/09/17 09:11 Dose: 5,000 intlu Diltiazem HCl (Cardizem) 60 mg PO Q8 [facility] Last Admin: 12/09/17 09:09 Dose: 60 mg Vancomycin HCl 750 mg/ Sodium (Chloride) 250 mls @ 166.667 mls/hr IVPB Q48H [facility] PRN Reason: Protocol Last Admin: 12/08/17 08:43 Dose: 166.667 mls/hr Diltiazem HCl 125 mg/ Sodium (Chloride) 125 mls @ 5 mls/hr IV .Q24H ONE; 5 MG/ HR PRN Reason: Protocol Stop: 12/10/17 02:44 Last Titration: 12/09/17 05:32 Dose: 12.5 mg/hr, 12.5 mls/hr Cefepime HCl 1 gm/ Sodium (Chloride) 100 mls @ 100 mls/hr IVPB Q12 [facility] PRN Reason: Protocol Ipratropium [place] (Atrovent) 0.5 mg IH RQ4 PRN PRN Reason: Shortness of Breath Last Admin: 12/08/17 17:49 Dose: 0.5 mg Lamotrigine (Lamictal) 150 mg PO Q12@0930,2130 [facility] Last Admin: 12/09/17 09:10 Dose: 150 mg Levalbuterol HCl (Xopenex) 0.63 mg INH RQ4 PRN PRN Reason: Shortness of Breath Last Admin: 12/08/17 17:49 Dose: 0.63 mg Metoprolol Succinate (Toprol Xl) 50 mg PO DAILY [facility] Last Admin: 12/09/17 09:10 Dose: 50 mg Pantoprazole Sodium (Protonix Ec Tab) 40 mg PO DAILY [facility] Last Admin: 12/09/17 09:09 Dose: 40 mg - Labs Labs: 12/09/17 07:30 12/09/17 07:30 PT 14.9 Seconds (9.8-13.1) H 10/29/17 04:20 INR 1.3 (0.9-1.2) H 10/29/17 04:20 APTT 34.4 Seconds (25.6-37.1) 10/26/17 12:30 Assessment and Plan (1) CANDELARIA (acute kidney injury) Status: Acute (2) Acute respiratory failure Status: Acute (3) Altered mental status Status: Acute (4) Diastolic CHF, acute on chronic Status: Acute (5) Pleural effusion, bilateral Status: Acute (6) Pneumonia Status: Resolved (7) Aortic valve vegetation Status: Acute
[2017-12-09 14:05] LABS: BANDS 1 % (0-2); LYMPHOCYTE 5 % (20-50); MONOCYTE 4 % (0-10); NEUTROPHIL 90 % (42-75); TOTAL CELLS COUNTED 100
[2017-12-09 14:06] LABS: PLATELET ESTIMATE NORMAL (NORMAL)
[2017-12-09 14:07] LABS: ANISOCYTOSIS SLIGHT; OVALOCYTES SLIGHT; POIKILOCYTOSIS SLIGHT
[2017-12-09 14:54] LABS: INR 1.8 (0.9-1.2); PROTHROMBIN TIME 20.3 Seconds (9.8-13.1)
--- NOTE | 2017-12-09 15:22 | CP.PCM.PN ---
Subjective - Date & Time of Evaluation Date of Evaluation: 12/09/17 Time of Evaluation: 10:00 - Subjective Subjective: F/U Respiratory Failure Pt with no A/D, answer questions. Objective - Vital Signs/Intake and Output Vital Signs (last 24 hours): Temp Pulse Resp BP Pulse Ox 99.1 F 91 H 18 156/81 H 100 12/09/17 12:51 12/09/17 12:51 12/09/17 12:51 12/09/17 12:51 12/09/17 12:51 Intake and Output: 12/09/17 12/09/17 06:59 18:59 Intake Total 0 Balance 0 - Medications Medications: Current Medications Apixaban (Eliquis) 2.5 mg PO BID [facility] PRN Reason: Protocol Last Admin: 12/09/17 09:10 Dose: 2.5 mg Cholecalciferol (Vitamin D) 5,000 intlu PO DAILY [facility] Last Admin: 12/09/17 09:11 Dose: 5,000 intlu Diltiazem HCl (Cardizem) 60 mg PO Q8 [facility] Last Admin: 12/09/17 09:09 Dose: 60 mg Vancomycin HCl 750 mg/ Sodium (Chloride) 250 mls @ 166.667 mls/hr IVPB Q48H [facility] PRN Reason: Protocol Last Admin: 12/08/17 08:43 Dose: 166.667 mls/hr Diltiazem HCl 125 mg/ Sodium (Chloride) 125 mls @ 5 mls/hr IV .Q24H ONE; 5 MG/ HR PRN Reason: Protocol Stop: 12/10/17 02:44 Last Titration: 12/09/17 05:32 Dose: 12.5 mg/hr, 12.5 mls/hr Cefepime HCl 1 gm/ Sodium (Chloride) 100 mls @ 100 mls/hr IVPB Q12 [facility] PRN Reason: Protocol Ipratropium [place] (Atrovent) 0.5 mg IH RQ4 PRN PRN Reason: Shortness of Breath Last Admin: 12/08/17 17:49 Dose: 0.5 mg Lamotrigine (Lamictal) 150 mg PO Q12@0930,2130 [facility] Last Admin: 12/09/17 09:10 Dose: 150 mg Levalbuterol HCl (Xopenex) 0.63 mg INH RQ4 PRN PRN Reason: Shortness of Breath Last Admin: 12/08/17 17:49 Dose: 0.63 mg Metoprolol Succinate (Toprol Xl) 50 mg PO DAILY [facility] Last Admin: 12/09/17 09:10 Dose: 50 mg Pantoprazole Sodium (Protonix Ec Tab) 40 mg PO DAILY [facility] Last Admin: 12/09/17 09:09 Dose: 40 mg - Labs Labs: 12/09/17 07:30 12/09/17 07:30 PT 20.3 Seconds (9.8-13.1) H 12/09/17 13:59 INR 1.8 (0.9-1.2) H 12/09/17 13:59 APTT 34.4 Seconds (25.6-37.1) 10/26/17 12:30 - Constitutional Appears: Chronically Ill - Head Exam Head Exam: NORMAL INSPECTION - Eye Exam Eye Exam: PERRL - ENT Exam Additional comments: Scab nose bridge, NG tube - Neck Exam Neck Exam: Normal Inspection - Respiratory Exam Respiratory Exam: Decreased Breath Sounds (at bases) - Cardiovascular Exam Cardiovascular Exam: Irregular Rhythm - GI/Abdominal Exam GI & Abdominal Exam: Soft, Normal Bowel Sounds - Extremities Exam Extremities Exam: Normal Inspection - Back Exam Additional comments: Lesions healing - Neurological Exam Additional comments: Lethargic, arousable, answer questions, follows commands, generalized weakness. - Skin Skin Exam: Warm Assessment and Plan (1) Acute respiratory failure with hypoxia Status: Acute (2) Encephalopathy Status: Acute (3) Pleural effusion, bilateral Status: Acute (4) Diastolic CHF, acute on chronic Status: Acute (5) Hx of seizure disorder Status: Chronic (6) A-fib Status: Chronic (7) CANDELARIA (acute kidney injury) Status: Acute (8) Anemia Status: Chronic (9) Aortic valve vegetation Status: Acute (10) SUSAN (obstructive sleep apnea) Status: Chronic (11) Pulmonary hypertension Status: Chronic (12) Clostridium difficile infection Status: Acute - Assessment and Plan (Free Text) Plan: Continue Cardizem, Toprol XL, f/u CT Chest today.
--- NOTE | 2017-12-09 15:56 | CT ---
PROCEDURE: CT Chest without contrast HISTORY: MD order COMPARISON: Comparison is made with the previous study dated 10/28/2017 TECHNIQUE: Contiguous axial images were obtained through the chest without intravenous contrast enhancement. Sagittal and coronal reconstructions were performed. Radiation dose (DLP): 745.77 mGy-cm. This CT exam was performed using one or more of the following dose reduction techniques: Automated exposure control, adjustment of the mA and/or kV according to patient size, and/or use of iterative reconstruction technique. FINDINGS: LUNGS: Again noted are bilateral large compressive atelectasis of the lower lobes due to pleural effusion. There is no evidence of significant interval change in the lungs noted since the previous exam MEDIASTINUM: Unremarkable thoracic aorta. No aneurysm. The heart is mildly to moderately enlarged. Pacemaker wires are again seen extending to the heart. Main pulmonary artery unremarkable. No vascular congestion. Slightly prominent AP and precarinal lymph nodes are again seen. PLEURA: Again noted are moderate bilateral pleural effusions. BONES: No fracture. No destructive lesion. Mild diffuse osteoporosis is again noted. UPPER ABDOMEN: The left kidney is smaller than the right. NG tube seen extending to the stomach OTHER FINDINGS: None. IMPRESSION: Overall no significant interval change when compared to the previous study dated 10/28/2017. Moderate bilateral pleural effusions associated with almost complete atelectasis of the lower lobes. [id number] cardiomegaly.
[2017-12-09] MEDS: Cefepime 1 GM in Sodium Chloride 0.9% 100 ML IVPB SCH (22:37)
--- NOTE | 2017-12-09 23:19 | CP.PCM.PN ---
Subjective - Date & Time of Evaluation Date of Evaluation: 12/09/17 Time of Evaluation: 23:19 - Subjective Subjective: episode of afib with RVR MS waxing and waning Objective - Vital Signs/Intake and Output Vital Signs (last 24 hours): Temp Pulse Resp BP Pulse Ox 98 F 155 H 20 152/82 H 93 L 12/09/17 19:05 12/09/17 22:49 12/09/17 19:05 12/09/17 22:49 12/09/17 19:05 Intake and Output: 12/09/17 12/10/17 18:59 06:59 Intake Total 1350 Output Total 750 Balance 600 - Medications Medications: Current Medications Apixaban (Eliquis) 2.5 mg PO BID [facility] PRN Reason: Protocol Last Admin: 12/09/17 17:19 Dose: 2.5 mg Cholecalciferol (Vitamin D) 5,000 intlu PO DAILY [facility] Last Admin: 12/09/17 09:11 Dose: 5,000 intlu Diltiazem HCl (Cardizem) 60 mg PO Q8 [facility] Last Admin: 12/09/17 17:20 Dose: 60 mg Vancomycin HCl 750 mg/ Sodium (Chloride) 250 mls @ 166.667 mls/hr IVPB Q48H [facility] PRN Reason: Protocol Last Admin: 12/08/17 08:43 Dose: 166.667 mls/hr Diltiazem HCl 125 mg/ Sodium (Chloride) 125 mls @ 5 mls/hr IV .Q24H ONE; 5 MG/ HR PRN Reason: Protocol Stop: 12/10/17 02:44 Last Titration: 12/09/17 05:32 Dose: 12.5 mg/hr, 12.5 mls/hr Cefepime HCl 1 gm/ Sodium (Chloride) 100 mls @ 100 mls/hr IVPB Q12 [facility] PRN Reason: Protocol Last Admin: 12/09/17 22:37 Dose: 100 mls/hr Ipratropium [place] (Atrovent) 0.5 mg IH RQ4 PRN PRN Reason: Shortness of Breath Last Admin: 12/08/17 17:49 Dose: 0.5 mg Lamotrigine (Lamictal) 150 mg PO Q12@0930,2130 [facility] Last Admin: 12/09/17 22:33 Dose: 150 mg Levalbuterol HCl (Xopenex) 0.63 mg INH RQ4 PRN PRN Reason: Shortness of Breath Last Admin: 12/08/17 17:49 Dose: 0.63 mg Metoprolol Succinate (Toprol Xl) 50 mg PO DAILY [facility] Last Admin: 12/09/17 09:10 Dose: 50 mg Pantoprazole Sodium (Protonix Ec Tab) 40 mg PO DAILY [facility] Last Admin: 12/09/17 09:09 Dose: 40 mg - Labs Labs: 12/09/17 07:30 12/09/17 07:30 PT 20.3 Seconds (9.8-13.1) H 12/09/17 13:59 INR 1.8 (0.9-1.2) H 12/09/17 13:59 APTT 34.4 Seconds (25.6-37.1) 10/26/17 12:30 - Constitutional Appears: Well - Head Exam Head Exam: ATRAUMATIC, NORMAL INSPECTION, NORMOCEPHALIC - Eye Exam Eye Exam: EOMI, Normal appearance, PERRL Pupil Exam: NORMAL ACCOMODATION, PERRL - ENT Exam ENT Exam: Mucous Membranes Moist, Normal Exam - Neck Exam Neck Exam: Full ROM, Normal Inspection. absent: Lymphadenopathy - Respiratory Exam Respiratory Exam: Clear to Ausculation Bilateral, NORMAL BREATHING PATTERN - Cardiovascular Exam Cardiovascular Exam: Tachycardia, Irregular Rhythm, +S1, +S2, Murmur - GI/Abdominal Exam GI & Abdominal Exam: Soft, Normal Bowel Sounds. absent: Tenderness - Extremities Exam Extremities Exam: Full ROM, Normal Capillary Refill, Normal Inspection. absent : Joint Swelling, Pedal Edema - Back Exam Back Exam: NORMAL INSPECTION - Neurological Exam Neurological Exam: Altered, Awake - Psychiatric Exam Psychiatric exam: Flat Affect - Skin Skin Exam: Dry, Intact, Normal Color, Warm Assessment and Plan (1) A-fib Assessment & Plan: reloaded with digoxin cont bb and ccb Status: Chronic (2) Acute on chronic diastolic (congestive) heart failure Status: Chronic (3) Acute respiratory failure with hypoxia Status: Acute (4) Altered mental status Status: Acute (5) HTN (hypertension) Status: Chronic (6) Seizure disorder Status: Chronic (7) CANDELARIA (acute kidney injury) Status: Acute (8) Encephalopathy Status: Acute (9) Hypothermia Status: Acute (10) Pleural effusion, bilateral Status: Acute (11) Supratherapeutic international normalized ratio (INR) Status: Acute (12) Acute decompensated heart failure Status: Acute (13) Atrial fibrillation with RVR Status: Acute
--- NOTE | 2017-12-10 00:53 | CP.PCM.PN ---
Subjective - Date & Time of Evaluation Date of Evaluation: 12/09/17 Time of Evaluation: 22:50 - Subjective Subjective: Patient is still critical. ICU attending consult is called for A Fib, tachycardia, Pneumonia. Dr Ch literacy specialist commented " Called to evaluate patient for a fib with RVR. Patient BP and O2 sat stable, HR 150-160s. Patient comfortable. Patient on diltiazem gtt at 12.5 mg/hr." "Will give a dose of metoprolol 5 mg IV x 1 to see if this aids in reducing HR. No immediate need to move patient to ICU." There is no seizures on Lamictal [address] Winslow is recommending strongly to place a G.Tube in order to avoid any aspiration Pneumonia like what he suffers from now. The is opposing the Gastric Tube placement and is objecting any admission to Rehab after his discharge. VS are still unstable showing Tachycardia and High Blood Pressure and low O2 saturation on and off. Objective - Vital Signs/Intake and Output Vital Signs (last 24 hours): Temp Pulse Resp BP Pulse Ox 99.6 F 112 H 20 166/73 H 100 12/10/17 00:43 12/10/17 00:43 12/10/17 00:43 12/10/17 00:43 12/10/17 00:43 Intake and Output: 12/09/17 12/10/17 18:59 06:59 Intake Total 1350 Output Total 750 Balance 600 - Medications Medications: Current Medications Apixaban (Eliquis) 2.5 mg PO BID [facility] PRN Reason: Protocol Last Admin: 12/09/17 17:19 Dose: 2.5 mg Cholecalciferol (Vitamin D) 5,000 intlu PO DAILY [facility] Last Admin: 12/09/17 09:11 Dose: 5,000 intlu Diltiazem HCl (Cardizem) 60 mg PO Q8 [facility] Last Admin: 12/09/17 17:20 Dose: 60 mg Vancomycin HCl 750 mg/ Sodium (Chloride) 250 mls @ 166.667 mls/hr IVPB Q48H [facility] PRN Reason: Protocol Last Admin: 12/08/17 08:43 Dose: 166.667 mls/hr Diltiazem HCl 125 mg/ Sodium (Chloride) 125 mls @ 5 mls/hr IV .Q24H ONE; 5 MG/ HR PRN Reason: Protocol Stop: 12/10/17 02:44 Last Titration: 12/09/17 05:32 Dose: 12.5 mg/hr, 12.5 mls/hr Cefepime HCl 1 gm/ Sodium (Chloride) 100 mls @ 100 mls/hr IVPB Q12 [facility] PRN Reason: Protocol Last Admin: 12/09/17 22:37 Dose: 100 mls/hr Ipratropium [place] (Atrovent) 0.5 mg IH RQ4 PRN PRN Reason: Shortness of Breath Last Admin: 12/08/17 17:49 Dose: 0.5 mg Lamotrigine (Lamictal) 150 mg PO Q12@0930,2130 [facility] Last Admin: 12/09/17 22:33 Dose: 150 mg Levalbuterol HCl (Xopenex) 0.63 mg INH RQ4 PRN PRN Reason: Shortness of Breath Last Admin: 12/08/17 17:49 Dose: 0.63 mg Metoprolol Succinate (Toprol Xl) 50 mg PO DAILY [facility] Last Admin: 12/09/17 09:10 Dose: 50 mg Pantoprazole Sodium (Protonix Ec Tab) 40 mg PO DAILY [facility] Last Admin: 12/09/17 09:09 Dose: 40 mg - Labs Labs: 12/09/17 07:30 12/09/17 07:30 PT 20.3 Seconds (9.8-13.1) H 12/09/17 13:59 INR 1.8 (0.9-1.2) H 12/09/17 13:59 APTT 34.4 Seconds (25.6-37.1) 10/26/17 12:30 Assessment and Plan (1) CANDELARIA (acute kidney injury) Status: Acute (2) Acute respiratory failure Status: Acute (3) Altered mental status Status: Acute (4) Pleural effusion, bilateral Status: Acute (5) Pneumonia Status: Resolved (6) Seizure disorder Status: Suspected (7) Encephalopathy Status: Acute
[2017-12-10] MEDS ORDERED: Digoxin 500 mcg/2ml (0.5 mg/2ml) Inj IVP STA (07:33)
[2017-12-10] MEDS: Pantoprazole 40 mg EC Tab PO SCH (11:02)
[2017-12-10] MEDS: Metoprolol Succinate 50 mg XL Tab PO SCH ×2 (11:02→17:58)
[2017-12-10] MEDS: Cholecalciferol 1,000 INTLU TAB PO SCH (11:03)
[2017-12-10] MEDS: Cefepime 1 GM in Sodium Chloride 0.9% 100 ML IVPB SCH ×2 (11:12→21:31)
--- NOTE | 2017-12-10 11:22 | RAD ---
HISTORY: upright cxr COMPARISON: 12/07/2017. FINDINGS: The right PICC line terminates in the SVC. The nasogastric tube terminates in the stomach. LUNGS: Limited portable examination due to patient's chain overlying the left upper lobe. Again seen is bilateral lower lobe airspace disease. PLEURA: Stable pleural effusions, no pneumothorax apparent. CARDIOVASCULAR: The cardiomediastinal silhouette is stable OSSEOUS STRUCTURES: No significant abnormalities. VISUALIZED UPPER ABDOMEN: Normal. OTHER FINDINGS: None. IMPRESSION: Limited portable radiograph. No change in bilateral lower lobe airspace disease and pleural effusions. Follow-up PA radiograph is recommended.
--- NOTE | 2017-12-10 13:40 | CP.PCM.PN ---
Subjective - Date & Time of Evaluation Date of Evaluation: 12/10/17 Time of Evaluation: 10:40 - Subjective Subjective: F/U Respiratory Failure. Pt awake, answer questions, PT at bedside , She is going to seat PT at bedside, Pt's at bedside helping him Objective - Vital Signs/Intake and Output Vital Signs (last 24 hours): Temp Pulse Resp BP Pulse Ox 98.8 F 83 18 143/83 94 L 12/10/17 12:38 12/10/17 12:38 12/10/17 12:38 12/10/17 12:38 12/10/17 12:38 Intake and Output: 12/10/17 12/10/17 06:59 18:59 Intake Total 1150 Output Total 400 Balance 750 - Medications Medications: Current Medications Apixaban (Eliquis) 2.5 mg PO BID [facility] PRN Reason: Protocol Last Admin: 12/10/17 10:58 Dose: 2.5 mg Cholecalciferol (Vitamin D) 5,000 intlu PO DAILY [facility] Last Admin: 12/10/17 11:03 Dose: 5,000 intlu Digoxin (Lanoxin) 0.125 mg IVP DAILY [facility] Diltiazem HCl (Cardizem) 60 mg PO Q8 [facility] Last Admin: 12/10/17 01:03 Dose: Not Given Vancomycin HCl 750 mg/ Sodium (Chloride) 250 mls @ 166.667 mls/hr IVPB Q48H [facility] PRN Reason: Protocol Last Admin: 12/08/17 08:43 Dose: 166.667 mls/hr Cefepime HCl 1 gm/ Sodium (Chloride) 100 mls @ 100 mls/hr IVPB Q12 [facility] PRN Reason: Protocol Last Admin: 12/10/17 11:12 Dose: 100 mls/hr Ipratropium [place] (Atrovent) 0.5 mg IH RQ4 PRN PRN Reason: Shortness of Breath Last Admin: 12/08/17 17:49 Dose: 0.5 mg Lamotrigine (Lamictal) 150 mg PO Q12@0930,2130 [facility] Last Admin: 12/10/17 10:58 Dose: 150 mg Levalbuterol HCl (Xopenex) 0.63 mg INH RQ4 PRN PRN Reason: Shortness of Breath Last Admin: 01/28/18 17:49 Dose: 0.63 mg Metoprolol Succinate (Toprol Xl) 50 mg PO BID [facility] Pantoprazole Sodium (Protonix Ec Tab) 40 mg PO DAILY [facility] Last Admin: 12/10/17 11:02 Dose: 40 mg - Labs Labs: 12/09/17 07:30 12/09/17 07:30 PT 20.3 Seconds (9.8-13.1) H 12/09/17 13:59 INR 1.8 (0.9-1.2) H 12/09/17 13:59 APTT 34.4 Seconds (25.6-37.1) 10/26/17 12:30 - Constitutional Appears: Chronically Ill - Head Exam Head Exam: NORMAL INSPECTION - Eye Exam Eye Exam: PERRL - ENT Exam ENT Exam: Normal Exam Additional comments: Scab nose bridge, NG tube. - Neck Exam Neck Exam: Normal Inspection - Respiratory Exam Respiratory Exam: Decreased Breath Sounds (at bases) - Cardiovascular Exam Cardiovascular Exam: Irregular Rhythm - GI/Abdominal Exam GI & Abdominal Exam: Soft, Normal Bowel Sounds - Extremities Exam Extremities Exam: Normal Inspection - Back Exam Additional comments: Lesions healing - Neurological Exam Neurological Exam: Awake Additional comments: Answer questions, follows commands, generalized weakness. - Skin Skin Exam: Warm Assessment and Plan (1) Acute respiratory failure with hypoxia Status: Acute (2) Encephalopathy Status: Acute (3) Pleural effusion, bilateral Status: Acute (4) Diastolic CHF, acute on chronic Status: Acute (5) Hx of seizure disorder Status: Chronic (6) A-fib Status: Chronic (7) CANDELARIA (acute kidney injury) Status: Acute (8) Anemia Status: Chronic (9) Aortic valve vegetation Status: Acute (10) SUSAN (obstructive sleep apnea) Status: Chronic (11) Pulmonary hypertension Status: Chronic (12) Clostridium difficile infection Status: Acute - Assessment and Plan (Free Text) Plan: CT Chest: No changes compare to previous exam, b/l pleural effusion with LL atelectasis. Episodes of elevated HR last night, did not response to Cardizem via NG tube, HR controlled with Toprol po and Digoxin IV. Cardizem was DC.
--- NOTE | 2017-12-10 23:56 | CP.PCM.PN ---
Subjective - Date & Time of Evaluation Date of Evaluation: 12/10/17 Time of Evaluation: 22:45 - Subjective Subjective: Gm Positive cocci in rods and Gm Neg Rods and Polymorphonuclear cells are seen in his sputum Culture. He still has spells of tachycardia and mild desaturation. He is more lethargic than before, although he might have periods of orientation x3 and weak speech. Seizures are reported. was explained to need for a Gastric Tube. Objective - Vital Signs/Intake and Output Vital Signs (last 24 hours): Temp Pulse Resp BP Pulse Ox 97.4 F L 108 H 20 152/77 H 93 L 12/10/17 19:17 12/10/17 19:17 12/10/17 19:17 12/10/17 19:17 12/10/17 19:17 Intake and Output: 12/10/17 12/11/17 18:59 06:59 Intake Total 1830 Output Total 2 Balance 1828 - Medications Medications: Current Medications Apixaban (Eliquis) 2.5 mg PO BID [facility] PRN Reason: Protocol Last Admin: 12/10/17 17:56 Dose: 2.5 mg Cholecalciferol (Vitamin D) 5,000 intlu PO DAILY [facility] Last Admin: 12/10/17 11:03 Dose: 5,000 intlu Digoxin (Lanoxin) 0.125 mg IVP DAILY [facility] Diltiazem HCl (Cardizem) 60 mg PO Q8 [facility] Last Admin: 12/10/17 17:57 Dose: 60 mg Vancomycin HCl 750 mg/ Sodium (Chloride) 250 mls @ 166.667 mls/hr IVPB Q48H [facility] PRN Reason: Protocol Last Admin: 12/10/17 13:43 Dose: 166.667 mls/hr Cefepime HCl 1 gm/ Sodium (Chloride) 100 mls @ 100 mls/hr IVPB Q12 [facility] PRN Reason: Protocol Last Admin: 12/10/17 21:31 Dose: 100 mls/hr Ipratropium [place] (Atrovent) 0.5 mg IH RQ4 PRN PRN Reason: Shortness of Breath Last Admin: 12/08/17 17:49 Dose: 0.5 mg Lamotrigine (Lamictal) 150 mg PO Q12@0930,2130 [facility] Last Admin: 12/10/17 21:30 Dose: 150 mg Levalbuterol HCl (Xopenex) 0.63 mg INH RQ4 PRN PRN Reason: Shortness of Breath Last Admin: 12/08/17 17:49 Dose: 0.63 mg Metoprolol Succinate (Toprol Xl) 50 mg PO BID [facility] Last Admin: 12/10/17 17:58 Dose: 50 mg Pantoprazole Sodium (Protonix Ec Tab) 40 mg PO DAILY [facility] Last Admin: 12/10/17 11:02 Dose: 40 mg - Labs Labs: 12/09/17 07:30 12/09/17 07:30 PT 20.3 Seconds (9.8-13.1) H 12/09/17 13:59 INR 1.8 (0.9-1.2) H 12/09/17 13:59 APTT 34.4 Seconds (25.6-37.1) 10/26/17 12:30 Assessment and Plan (1) CANDELARIA (acute kidney injury) Status: Acute (2) Acute respiratory failure Status: Acute (3) Altered mental status Status: Acute (4) Pleural effusion, bilateral Status: Acute (5) Pneumonia Status: Resolved (6) Seizure disorder Status: Suspected (7) Encephalopathy Status: Acute
[2017-12-11] MEDS: Cholecalciferol 1,000 INTLU TAB PO SCH (09:29)
[2017-12-11] MEDS: Pantoprazole 40 mg EC Tab PO SCH (09:37)
[2017-12-11] MEDS: Metoprolol Succinate 50 mg XL Tab PO SCH ×2 (09:38→18:25)
[2017-12-11] MEDS: Cefepime 1 GM in Sodium Chloride 0.9% 100 ML IVPB SCH (09:54)
[2017-12-11] MEDS: Digoxin 500 mcg/2ml (0.5 mg/2ml) Inj IVP SCH (09:57)
[2017-12-11] MEDS ORDERED: Chlorhexidine Gluconate 1 APPL/PKT TP ONE (13:15)
--- NOTE | 2017-12-11 13:47 | CP.PCM.PN ---
Subjective - Date & Time of Evaluation Date of Evaluation: 12/11/17 Time of Evaluation: 10:00 - Subjective Subjective: no AD , smiling , answer questions , PT and Patient's at bedside Objective - Vital Signs/Intake and Output Vital Signs (last 24 hours): Temp Pulse Resp BP Pulse Ox 98.6 F 84 20 162/81 H 95 12/11/17 11:54 12/11/17 11:54 12/11/17 11:54 12/11/17 11:54 12/11/17 11:54 Intake and Output: 12/11/17 12/11/17 06:59 18:59 Intake Total 1830 Output Total 2 Balance 1828 - Medications Medications: Current Medications Apixaban (Eliquis) 2.5 mg PO BID [facility]S AT [facility] PRN Reason: Protocol Last Admin: 12/11/17 09:32 Dose: 2.5 mg Cholecalciferol (Vitamin D) 5,000 intlu PO DAILY [facility] 234 [facility]EDS [facility] Last Admin: 12/11/17 09:29 Dose: 5,000 intlu Digoxin (Lanoxin) 0.125 mg IVP DAILY [facility] 234 BEDS AT [facility] Last Admin: 12/11/17 09:57 Dose: 0.125 mg Diltiazem HCl (Cardizem) 60 mg PO Q8 [facility] 234 BEDS AT [facility] Last Admin: 12/11/17 09:31 Dose: 60 mg Vancomycin HCl 750 mg/ Sodium (Chloride) 250 mls @ 166.667 mls/hr IVPB Q48H [facility] PRN Reason: Protocol Last Admin: 12/10/17 13:43 Dose: 166.667 mls/hr Cefepime HCl 1 gm/ Sodium (Chloride) 50 mls @ 50 mls/hr IVPB Q12 [facility] 234 BEDS AT [facility] PRN Reason: Protocol Ipratropium [place] (Atrovent) 0.5 mg IH RQ4 PRN PRN Reason: Shortness of Breath Last Admin: 12/08/17 17:49 Dose: 0.5 mg Lamotrigine (Lamictal) 150 mg PO Q12@0930,2130 [facility] 234 [facility]EDS [facility] Last Admin: 12/11/17 09:37 Dose: 150 mg Levalbuterol HCl (Xopenex) 0.63 mg INH RQ4 PRN PRN Reason: Shortness of Breath Last Admin: 12/08/17 17:49 Dose: 0.63 mg Metoprolol Succinate (Toprol Xl) 50 mg PO BID [facility] 234 [facility]EDS [facility] Last Admin: 12/11/17 09:38 Dose: 50 mg Pantoprazole Sodium (Protonix Ec Tab) 40 mg PO DAILY [facility] 234 [facility]EDS AT [facility] Last Admin: 12/11/17 09:37 Dose: 40 mg - Labs Labs: 12/09/17 07:30 12/09/17 07:30 PT 20.3 Seconds (9.8-13.1) H 12/09/17 13:59 INR 1.8 (0.9-1.2) H 12/09/17 13:59 APTT 34.4 Seconds (25.6-37.1) 10/26/17 12:30 - Constitutional Appears: Chronically Ill - Head Exam Head Exam: NORMAL INSPECTION - Eye Exam Eye Exam: PERRL - ENT Exam Additional comments: nose bridge dry scab - Neck Exam Neck Exam: Normal Inspection - Respiratory Exam Respiratory Exam: Decreased Breath Sounds (at bases) - Cardiovascular Exam Cardiovascular Exam: Irregular Rhythm - GI/Abdominal Exam GI & Abdominal Exam: Soft, Normal Bowel Sounds - Extremities Exam Extremities Exam: Normal Inspection - Back Exam Back Exam: NORMAL INSPECTION Additional comments: L-S lesions almost healed - Neurological Exam Neurological Exam: Awake, CN II-XII Intact (follows commands , move all extremities , generalized weakness) - Psychiatric Exam Additional comments: calm Assessment and Plan (1) Acute respiratory failure with hypoxia Status: Acute (2) Encephalopathy Status: Acute (3) Pleural effusion, bilateral Status: Acute (4) Diastolic CHF, acute on chronic Status: Acute (5) Hx of seizure disorder Status: Chronic (6) A-fib Status: Chronic (7) CANDELARIA (acute kidney injury) Status: Acute (8) Anemia Status: Chronic (9) Aortic valve vegetation Status: Acute (10) SUSAN (obstructive sleep apnea) Status: Chronic (11) Pulmonary hypertension Status: Chronic (12) Clostridium difficile infection Status: Acute - Assessment and Plan (Free Text) Plan: NG tube was DC , monitor po intake , PT with help of Patient,s are seating Patient with legs OOB., Heart rate stable , continue Cardizem , Digoxin , Metropolol ,Eliquis and rest of treatment
--- NOTE | 2017-12-11 14:33 | CP.PCM.PN ---
Subjective - Date & Time of Evaluation Date of Evaluation: 12/11/17 Time of Evaluation: 07:00 - Subjective Subjective: sputum c/s pending iv rx in progress Objective - Vital Signs/Intake and Output Vital Signs (last 24 hours): Temp Pulse Resp BP Pulse Ox 98.6 F 84 20 162/81 H 95 12/11/17 11:54 12/11/17 11:54 12/11/17 11:54 12/11/17 11:54 12/11/17 11:54 Intake and Output: 12/11/17 12/11/17 06:59 18:59 Intake Total 1830 Output Total 2 Balance 1828 - Medications Medications: Current Medications Apixaban (Eliquis) 2.5 mg PO BID [facility] PRN Reason: Protocol Last Admin: 12/11/17 09:32 Dose: 2.5 mg Cholecalciferol (Vitamin D) 5,000 intlu PO DAILY [facility] Last Admin: 12/11/17 09:29 Dose: 5,000 intlu Digoxin (Lanoxin) 0.125 mg IVP DAILY [facility] Last Admin: 12/11/17 09:57 Dose: 0.125 mg Diltiazem HCl (Cardizem) 60 mg PO Q8 [facility] Last Admin: 12/11/17 09:31 Dose: 60 mg Vancomycin HCl 750 mg/ Sodium (Chloride) 250 mls @ 166.667 mls/hr IVPB Q48H [facility] PRN Reason: Protocol Last Admin: 12/10/17 13:43 Dose: 166.667 mls/hr Cefepime HCl 1 gm/ Sodium (Chloride) 50 mls @ 50 mls/hr IVPB Q12 [facility] PRN Reason: Protocol Ipratropium [place] (Atrovent) 0.5 mg IH RQ4 PRN PRN Reason: Shortness of Breath Last Admin: 12/08/17 17:49 Dose: 0.5 mg Lamotrigine (Lamictal) 150 mg PO Q12@0930,2130 [facility] Last Admin: 12/11/17 09:37 Dose: 150 mg Levalbuterol HCl (Xopenex) 0.63 mg INH RQ4 PRN PRN Reason: Shortness of Breath Last Admin: 12/08/17 17:49 Dose: 0.63 mg Metoprolol Succinate (Toprol Xl) 50 mg PO BID [facility] Last Admin: 12/11/17 09:38 Dose: 50 mg Pantoprazole Sodium (Protonix Ec Tab) 40 mg PO DAILY [facility] Last Admin: 12/11/17 09:37 Dose: 40 mg - Labs Labs: 12/09/17 07:30 12/09/17 07:30 PT 20.3 Seconds (9.8-13.1) H 12/09/17 13:59 INR 1.8 (0.9-1.2) H 12/09/17 13:59 APTT 34.4 Seconds (25.6-37.1) 10/26/17 12:30 - Constitutional Appears: Chronically Ill - Head Exam Head Exam: NORMOCEPHALIC - Eye Exam Eye Exam: PERRL. absent: Scleral icterus - ENT Exam ENT Exam: Mucous Membranes Dry - Neck Exam Neck Exam: absent: Lymphadenopathy - Respiratory Exam Respiratory Exam: Decreased Breath Sounds - Cardiovascular Exam Cardiovascular Exam: REGULAR RHYTHM - GI/Abdominal Exam GI & Abdominal Exam: Distended, Soft - Rectal Exam Rectal Exam: Deferred - Exam Exam: NORMAL INSPECTION - Extremities Exam Extremities Exam: absent: Pedal Edema - Back Exam Back Exam: absent: CVA tenderness (L), CVA tenderness (R) - Neurological Exam Neurological Exam: Altered Assessment and Plan (1) CANDELARIA (acute kidney injury) Status: Acute (2) Acute respiratory failure Status: Acute (3) Altered mental status Status: Acute (4) Diastolic CHF, acute on chronic Status: Acute (5) Pleural effusion, bilateral Status: Acute (6) Pneumonia Status: Resolved (7) Aortic valve vegetation Status: Acute
[2017-12-11] MEDS: Cefepime 1 GM in Sodium Chloride 0.9% 50 ML IVPB SCH (21:13)
--- NOTE | 2017-12-11 21:56 | CP.PCM.PN ---
Subjective - Date & Time of Evaluation Date of Evaluation: 12/11/17 Time of Evaluation: 21:54 - Subjective Subjective: Patient is unchanged, Chest Cultures are ordered is to performed to R/O a significant infection. No seizures. Coarse tremors of the Upper Extremities and Rigidity are seen, R/o Early Parkinsonism or extra pyramidal manifestations to be followed Positive C. Difficile Ag and Toxin. He took off his N.G Tube. V.S. are showing High B.P. B.P. must be less than 150/80 if Possible. Objective - Vital Signs/Intake and Output Vital Signs (last 24 hours): Temp Pulse Resp BP Pulse Ox 98 F 87 18 163/89 H 95 12/11/17 19:30 12/11/17 21:48 12/11/17 21:48 12/11/17 21:48 12/11/17 21:48 Intake and Output: 12/11/17 12/12/17 18:59 06:59 Intake Total 780 Balance 780 - Medications Medications: Current Medications Apixaban (Eliquis) 2.5 mg PO BID [facility] PRN Reason: Protocol Last Admin: 12/11/17 18:25 Dose: 2.5 mg Cholecalciferol (Vitamin D) 5,000 intlu PO DAILY [facility] Last Admin: 12/11/17 09:29 Dose: 5,000 intlu Digoxin (Lanoxin) 0.125 mg IVP DAILY [facility] Last Admin: 12/11/17 09:57 Dose: 0.125 mg Diltiazem HCl (Cardizem) 60 mg PO Q8 [facility] Last Admin: 12/11/17 18:24 Dose: 60 mg Vancomycin HCl 750 mg/ Sodium (Chloride) 250 mls @ 166.667 mls/hr IVPB Q48H [facility] PRN Reason: Protocol Last Admin: 12/10/17 13:43 Dose: 166.667 mls/hr Cefepime HCl 1 gm/ Sodium (Chloride) 50 mls @ 50 mls/hr IVPB Q12 [facility] PRN Reason: Protocol Last Admin: 12/11/17 21:13 Dose: 50 mls/hr Ipratropium [place] (Atrovent) 0.5 mg IH RQ4 PRN PRN Reason: Shortness of Breath Last Admin: 12/08/17 17:49 Dose: 0.5 mg Lamotrigine (Lamictal) 150 mg PO Q12@0930,2130 [facility] Last Admin: 12/11/17 21:13 Dose: 150 mg Levalbuterol HCl (Xopenex) 0.63 mg INH RQ4 PRN PRN Reason: Shortness of Breath Last Admin: 12/08/17 17:49 Dose: 0.63 mg Metoprolol Succinate (Toprol Xl) 50 mg PO BID [facility] Last Admin: 12/11/17 18:25 Dose: 50 mg Pantoprazole Sodium (Protonix Ec Tab) 40 mg PO DAILY [facility] Last Admin: 12/11/17 09:37 Dose: 40 mg - Labs Labs: 12/09/17 07:30 12/09/17 07:30 PT 20.3 Seconds (9.8-13.1) H 12/09/17 13:59 INR 1.8 (0.9-1.2) H 12/09/17 13:59 APTT 34.4 Seconds (25.6-37.1) 10/26/17 12:30 Assessment and Plan (1) CANDELARIA (acute kidney injury) Status: Acute (2) Acute respiratory failure Status: Acute (3) Altered mental status Status: Acute (4) Pleural effusion, bilateral Status: Acute (5) Pneumonia Status: Resolved (6) Seizure disorder Status: Suspected (7) Encephalopathy Status: Acute
[2017-12-12] MEDS: Cefepime 1 GM in Sodium Chloride 0.9% 50 ML IVPB SCH ×2 (09:44→21:00)
[2017-12-12] MEDS: Pantoprazole 40 mg EC Tab PO SCH (09:47)
[2017-12-12] MEDS: Cholecalciferol 1,000 INTLU TAB PO SCH (09:48)
[2017-12-12] MEDS: Metoprolol Succinate 50 mg XL Tab PO SCH ×2 (09:48→17:49)
[2017-12-12] MEDS: Digoxin 500 mcg/2ml (0.5 mg/2ml) Inj IVP SCH (10:40)
[2017-12-12 11:52] LABS: ABG ALLEN TEST YES; ARTERIAL BLOOD GAS HCO3 32.8 mmol/L (21-28); ARTERIAL BLOOD GAS HEMOGLOBIN 11.3 g/dL (11.7-17.4); ARTERIAL BLOOD GAS O2 CAPACITY 15.4 mL/dL (16-24); ARTERIAL BLOOD GAS O2 CONTENT 14.8 ML/dL (15-23); ARTERIAL BLOOD GAS O2 SAT 95.9 % (95-98); ARTERIAL BLOOD GAS PCO2 53 mm/Hg (35-45); ARTERIAL BLOOD GAS PH 7.44 (7.35-7.45); ARTERIAL BLOOD GAS PO2 64 mm/Hg (80-100); ARTERIAL BLOOD GAS TCO2 37.6 mmol/L (22-28)
--- NOTE | 2017-12-12 16:59 | CP.PCM.PN ---
Subjective - Date & Time of Evaluation Date of Evaluation: 12/12/17 Time of Evaluation: 11:50 - Subjective Subjective: F/U Respiratory failure. Pt awake, no A/D, at bedside. Objective - Vital Signs/Intake and Output Vital Signs (last 24 hours): Temp Pulse Resp BP Pulse Ox 97.1 F L 90 18 53/35 L 100 12/12/17 15:53 12/12/17 15:53 12/12/17 15:53 12/12/17 15:53 12/12/17 15:53 Intake and Output: 12/12/17 12/12/17 06:59 18:59 Intake Total 900 Output Total 0 Balance 900 - Medications Medications: Current Medications Apixaban (Eliquis) 2.5 mg PO BID [facility] PRN Reason: Protocol Last Admin: 12/12/17 09:47 Dose: 2.5 mg Cholecalciferol (Vitamin D) 5,000 intlu PO DAILY [facility] Last Admin: 12/12/17 09:48 Dose: 5,000 intlu Digoxin (Lanoxin) 0.125 mg IVP DAILY [facility] Last Admin: 12/12/17 10:40 Dose: 0.125 mg Diltiazem HCl (Cardizem) 60 mg PO Q8 [facility] Last Admin: 12/12/17 09:47 Dose: 60 mg Vancomycin HCl 750 mg/ Sodium (Chloride) 250 mls @ 166.667 mls/hr IVPB Q48H [facility] PRN Reason: Protocol Last Admin: 12/12/17 10:54 Dose: 166.667 mls/hr Cefepime HCl 1 gm/ Sodium (Chloride) 50 mls @ 50 mls/hr IVPB Q12 [facility] PRN Reason: Protocol Last Admin: 12/12/17 09:44 Dose: 50 mls/hr Ipratropium [place] (Atrovent) 0.5 mg IH RQ4 PRN PRN Reason: Shortness of Breath Last Admin: 12/08/17 17:49 Dose: 0.5 mg Lamotrigine (Lamictal) 150 mg PO Q12@0930,2130 [facility] Last Admin: 12/12/17 09:46 Dose: 150 mg Levalbuterol HCl (Xopenex) 0.63 mg INH RQ4 PRN PRN Reason: Shortness of Breath Last Admin: 12/08/17 17:49 Dose: 0.63 mg Metoprolol Succinate (Toprol Xl) 50 mg PO BID [facility] Last Admin: 12/12/17 09:48 Dose: 50 mg Pantoprazole Sodium (Protonix Ec Tab) 40 mg PO DAILY [facility] Last Admin: 12/12/17 09:47 Dose: 40 mg - Labs Labs: 12/09/17 07:30 12/09/17 07:30 PT 20.3 Seconds (9.8-13.1) H 12/09/17 13:59 INR 1.8 (0.9-1.2) H 12/09/17 13:59 APTT 34.4 Seconds (25.6-37.1) 10/26/17 12:30 - Constitutional Appears: Chronically Ill - Head Exam Head Exam: NORMAL INSPECTION - Eye Exam Eye Exam: PERRL - ENT Exam Additional comments: Nose bridge dry scab - Neck Exam Neck Exam: Normal Inspection - Respiratory Exam Respiratory Exam: Decreased Breath Sounds (at basese) - Cardiovascular Exam Cardiovascular Exam: Irregular Rhythm - GI/Abdominal Exam GI & Abdominal Exam: Soft, Normal Bowel Sounds - Extremities Exam Extremities Exam: Normal Inspection - Back Exam Additional comments: L-S lesions almost healed. - Neurological Exam Neurological Exam: Awake, CN II-XII Intact Additional comments: Fpllows commands, moves all extremities, generalized weakness. - Psychiatric Exam Additional comments: Calm - Skin Skin Exam: Warm Assessment and Plan (1) Acute respiratory failure with hypoxia Status: Acute (2) Encephalopathy Status: Acute (3) Pleural effusion, bilateral Status: Acute (4) Diastolic CHF, acute on chronic Status: Acute (5) Hx of seizure disorder Status: Chronic (6) A-fib Status: Chronic (7) CANDELARIA (acute kidney injury) Status: Acute (8) Anemia Status: Chronic (9) Aortic valve vegetation Status: Acute (10) SUSAN (obstructive sleep apnea) Status: Chronic (11) Pulmonary hypertension Status: Chronic (12) Clostridium difficile infection Status: Acute - Assessment and Plan (Free Text) Plan: HR more controlled, continue Digoxin, Cardizem, Metropolol, Eliquis and rest of tx.
--- NOTE | 2017-12-12 22:15 | CP.PCM.PN ---
Subjective - Date & Time of Evaluation Date of Evaluation: 12/12/17 Time of Evaluation: 21:30 - Subjective Subjective: He is suffering from low PO2 and high P CO2 on his ABG. No Seizures are reported but he is lethargic more than before in General. He has Rigidity and coarse tremors in all his 4 Extremities. Will start him on Carbidopa, L Dopa 25/ 100 mg Q 8 Hrs 1 hr before or 2 hrs before feeds to help his Rigidity and his tremors and help his breathing while having rigidity. This will cause him to be more awake and will treat his Rigidity. His breathing is deteriorating due to the Rigidity of his Muscles and due to his infection and his respiratory insufficiency. We will follow. Objective - Vital Signs/Intake and Output Vital Signs (last 24 hours): Temp Pulse Resp BP Pulse Ox 98.0 F 70 19 117/85 97 12/12/17 19:46 12/12/17 19:46 12/12/17 19:46 12/12/17 19:46 12/12/17 19:46 Intake and Output: 12/12/17 12/13/17 18:59 06:59 Intake Total 900 Output Total 0 Balance 900 - Medications Medications: Current Medications Apixaban (Eliquis) 2.5 mg PO BID [facility] PRN Reason: Protocol Last Admin: 12/12/17 17:51 Dose: 2.5 mg Cholecalciferol (Vitamin D) 5,000 intlu PO DAILY [facility] Last Admin: 12/12/17 09:48 Dose: 5,000 intlu Digoxin (Lanoxin) 0.125 mg IVP DAILY [facility] Last Admin: 12/12/17 10:40 Dose: 0.125 mg Diltiazem HCl (Cardizem) 60 mg PO Q8 [facility] Last Admin: 12/12/17 17:50 Dose: 60 mg Vancomycin HCl 750 mg/ Sodium (Chloride) 250 mls @ 166.667 mls/hr IVPB Q48H [facility] PRN Reason: Protocol Last Admin: 12/12/17 10:54 Dose: 166.667 mls/hr Cefepime HCl 1 gm/ Sodium (Chloride) 50 mls @ 50 mls/hr IVPB Q12 [facility] PRN Reason: Protocol Last Admin: 12/12/17 09:44 Dose: 50 mls/hr Ipratropium [place] (Atrovent) 0.5 mg IH RQ4 PRN PRN Reason: Shortness of Breath Last Admin: 12/08/17 17:49 Dose: 0.5 mg Lamotrigine (Lamictal) 150 mg PO Q12@0930,2130 [facility] Last Admin: 12/12/17 09:46 Dose: 150 mg Levalbuterol HCl (Xopenex) 0.63 mg INH RQ4 PRN PRN Reason: Shortness of Breath Last Admin: 12/08/17 17:49 Dose: 0.63 mg Metoprolol Succinate (Toprol Xl) 50 mg PO BID [facility] Last Admin: 12/12/17 17:49 Dose: 50 mg Pantoprazole Sodium (Protonix Ec Tab) 40 mg PO DAILY [facility] Last Admin: 12/12/17 09:47 Dose: 40 mg - Labs Labs: 12/09/17 07:30 12/09/17 07:30 PT 20.3 Seconds (9.8-13.1) H 12/09/17 13:59 INR 1.8 (0.9-1.2) H 12/09/17 13:59 APTT 34.4 Seconds (25.6-37.1) 10/26/17 12:30 Assessment and Plan (1) CANDELARIA (acute kidney injury) Status: Acute (2) Acute respiratory failure Status: Acute (3) Altered mental status Status: Acute (4) Pleural effusion, bilateral Status: Acute (5) Pneumonia Status: Resolved (6) Seizure disorder Status: Suspected (7) Encephalopathy Status: Acute
--- NOTE | 2017-12-13 01:44 | CP.PCM.PN ---
Subjective - Date & Time of Evaluation Date of Evaluation: 12/12/17 Time of Evaluation: 09:00 - Subjective Subjective: more awake today HR controlled Objective - Vital Signs/Intake and Output Vital Signs (last 24 hours): Temp Pulse Resp BP Pulse Ox 98.2 F 116 H 20 178/88 H 96 12/13/17 00:46 12/13/17 01:27 12/13/17 00:46 12/13/17 01:27 12/13/17 00:46 Intake and Output: 12/12/17 12/13/17 18:59 06:59 Intake Total 900 Output Total 0 Balance 900 - Medications Medications: Current Medications Apixaban (Eliquis) 2.5 mg PO BID [facility] PRN Reason: Protocol Last Admin: 12/12/17 17:51 Dose: 2.5 mg Carbidopa/Levodopa (Sinemet) 1 tab PO TID@0700,1100,1600 [facility] Cholecalciferol (Vitamin D) 5,000 intlu PO DAILY [facility] Last Admin: 12/12/17 09:48 Dose: 5,000 intlu Digoxin (Lanoxin) 0.125 mg IVP DAILY [facility] Last Admin: 12/12/17 10:40 Dose: 0.125 mg Diltiazem HCl (Cardizem) 60 mg PO Q8 [facility] Last Admin: 12/13/17 01:27 Dose: 60 mg Vancomycin HCl 750 mg/ Sodium (Chloride) 250 mls @ 166.667 mls/hr IVPB Q48H [facility] PRN Reason: Protocol Last Admin: 12/12/17 10:54 Dose: 166.667 mls/hr Cefepime HCl 1 gm/ Sodium (Chloride) 50 mls @ 50 mls/hr IVPB Q12 [facility] PRN Reason: Protocol Last Admin: 12/12/17 21:00 Dose: 50 mls/hr Ipratropium [place] (Atrovent) 0.5 mg IH RQ4 PRN PRN Reason: Shortness of Breath Last Admin: 12/08/17 17:49 Dose: 0.5 mg Lamotrigine (Lamictal) 150 mg PO Q12@0930,2130 [facility] Last Admin: 12/12/17 22:13 Dose: 150 mg Levalbuterol HCl (Xopenex) 0.63 mg INH RQ4 PRN PRN Reason: Shortness of Breath Last Admin: 12/08/17 17:49 Dose: 0.63 mg Metoprolol Succinate (Toprol Xl) 50 mg PO BID [facility] Last Admin: 12/12/17 17:49 Dose: 50 mg Pantoprazole Sodium (Protonix Ec Tab) 40 mg PO DAILY [facility] Last Admin: 12/12/17 09:47 Dose: 40 mg - Labs Labs: 12/09/17 07:30 12/09/17 07:30 PT 20.3 Seconds (9.8-13.1) H 12/09/17 13:59 INR 1.8 (0.9-1.2) H 12/09/17 13:59 APTT 34.4 Seconds (25.6-37.1) 10/26/17 12:30 - Constitutional Appears: Well - Head Exam Head Exam: ATRAUMATIC, NORMAL INSPECTION, NORMOCEPHALIC - Eye Exam Eye Exam: EOMI, Normal appearance, PERRL Pupil Exam: NORMAL ACCOMODATION, PERRL - ENT Exam ENT Exam: Mucous Membranes Moist, Normal Exam - Neck Exam Neck Exam: Full ROM, Normal Inspection. absent: Lymphadenopathy - Respiratory Exam Respiratory Exam: Clear to Ausculation Bilateral, Rales, NORMAL BREATHING PATTERN - Cardiovascular Exam Cardiovascular Exam: Irregular Rhythm, +S1, +S2, Murmur - GI/Abdominal Exam GI & Abdominal Exam: Soft, Normal Bowel Sounds. absent: Tenderness - Extremities Exam Extremities Exam: Full ROM, Normal Capillary Refill, Normal Inspection. absent : Joint Swelling, Pedal Edema - Back Exam Back Exam: NORMAL INSPECTION - Neurological Exam Neurological Exam: Alert, Awake, CN II-XII Intact, Normal Gait, Oriented x3 - Psychiatric Exam Psychiatric exam: Normal Affect, Normal Mood - Skin Skin Exam: Dry, Intact, Normal Color, Warm Assessment and Plan (1) A-fib Status: Chronic (2) Acute on chronic diastolic (congestive) heart failure Status: Chronic (3) Acute respiratory failure with hypoxia Status: Acute (4) Altered mental status Status: Acute (5) HTN (hypertension) Status: Chronic (6) Seizure disorder Status: Chronic (7) CANDELARIA (acute kidney injury) Status: Acute (8) Encephalopathy Status: Acute (9) Hypothermia Status: Acute (10) Pleural effusion, bilateral Status: Acute (11) Supratherapeutic international normalized ratio (INR) Status: Acute (12) Acute decompensated heart failure Status: Acute (13) Atrial fibrillation with RVR Status: Acute
[2017-12-13] MEDS: Cholecalciferol 1,000 INTLU TAB PO SCH (08:36)
[2017-12-13] MEDS: Metoprolol Succinate 50 mg XL Tab PO SCH ×2 (08:36→16:10)
[2017-12-13] MEDS: Cefepime 1 GM in Sodium Chloride 0.9% 50 ML IVPB SCH ×2 (08:37→20:41)
[2017-12-13] MEDS: Pantoprazole 40 mg EC Tab PO SCH (08:39)
[2017-12-13] MEDS: Digoxin 500 mcg/2ml (0.5 mg/2ml) Inj IVP SCH (08:41)
[2017-12-13 11:39] LABS: ABG ALLEN TEST YES; ARTERIAL BLOOD GAS HEMOGLOBIN 13.4 g/dL (11.7-17.4); ARTERIAL BLOOD GAS O2 CAPACITY 18.2 mL/dL (16-24); ARTERIAL BLOOD GAS O2 CONTENT 17.1 ML/dL (15-23); ARTERIAL BLOOD GAS O2 SAT 94.2 % (95-98); ARTERIAL BLOOD GAS PCO2 86 mm/Hg (35-45); ARTERIAL BLOOD GAS PH 7.23 (7.35-7.45); ARTERIAL BLOOD GAS PO2 72 mm/Hg (80-100); ARTERIAL BLOOD GAS TCO2 38.6 mmol/L (22-28)
--- NOTE | 2017-12-13 14:10 | CP.PCM.PN ---
Subjective - Date & Time of Evaluation Date of Evaluation: 12/13/17 Time of Evaluation: 09:00 - Subjective Subjective: He is suffering from low PO2 and high P CO2 on his ABG. No Seizures are reported but he is lethargic more than before in General. Objective - Vital Signs/Intake and Output Vital Signs (last 24 hours): Temp Pulse Resp BP Pulse Ox 98.4 F 111 H 18 176/84 H 94 L 12/13/17 12:06 12/13/17 12:06 12/13/17 12:06 12/13/17 12:06 12/13/17 12:06 Intake and Output: 12/13/17 12/13/17 06:59 18:59 Intake Total 160 Output Total 600 Balance -440 - Medications Medications: Current Medications Apixaban (Eliquis) 2.5 mg PO BID [facility] PRN Reason: Protocol Last Admin: 12/13/17 08:38 Dose: 2.5 mg Carbidopa/Levodopa (Sinemet) 1 tab PO TID@0700,1100,1600 [facility] Last Admin: 12/13/17 12:40 Dose: Not Given Cholecalciferol (Vitamin D) 5,000 intlu PO DAILY [facility] Last Admin: 12/13/17 08:36 Dose: 5,000 intlu Digoxin (Lanoxin) 0.125 mg IVP DAILY [facility] Last Admin: 12/13/17 08:41 Dose: 0.125 mg Diltiazem HCl (Cardizem) 60 mg PO Q8 [facility] Last Admin: 12/13/17 08:39 Dose: 60 mg Vancomycin HCl 750 mg/ Sodium (Chloride) 250 mls @ 166.667 mls/hr IVPB Q48H [facility] PRN Reason: Protocol Last Admin: 12/12/17 10:54 Dose: 166.667 mls/hr Cefepime HCl 1 gm/ Sodium (Chloride) 50 mls @ 50 mls/hr IVPB Q12 [facility] PRN Reason: Protocol Last Admin: 12/13/17 08:37 Dose: 50 mls/hr Dextrose/Sodium Chloride (Dextrose 5%/0.45% Ns 1000 Ml) 1,000 mls @ 60 mls/hr IV .[id number] [facility] Stop: 12/14/17 13:34 Ipratropium [place] (Atrovent) 0.5 mg IH RQ4 PRN PRN Reason: Shortness of Breath Last Admin: 12/08/17 17:49 Dose: 0.5 mg Lamotrigine (Lamictal) 150 mg PO Q12@0930,2130 [facility] Last Admin: 12/13/17 08:38 Dose: 150 mg Levalbuterol HCl (Xopenex) 0.63 mg INH RQ4 PRN PRN Reason: Shortness of Breath Last Admin: 12/08/17 17:49 Dose: 0.63 mg Metoprolol Succinate (Toprol Xl) 50 mg PO BID [facility] Last Admin: 12/13/17 08:36 Dose: 50 mg Pantoprazole Sodium (Protonix Ec Tab) 40 mg PO DAILY [facility] Last Admin: 12/13/17 08:39 Dose: 40 mg - Labs Labs: 12/09/17 07:30 12/09/17 07:30 PT 20.3 Seconds (9.8-13.1) H 12/09/17 13:59 INR 1.8 (0.9-1.2) H 12/09/17 13:59 APTT 34.4 Seconds (25.6-37.1) 10/26/17 12:30 - Constitutional Appears: Non-toxic, Confused, Cachectic, Chronically Ill - Head Exam Head Exam: NORMOCEPHALIC - Eye Exam Eye Exam: PERRL - ENT Exam ENT Exam: Mucous Membranes Dry - Neck Exam Neck Exam: absent: Lymphadenopathy - Respiratory Exam Respiratory Exam: Decreased Breath Sounds - Cardiovascular Exam Cardiovascular Exam: REGULAR RHYTHM - GI/Abdominal Exam GI & Abdominal Exam: Distended, Soft Assessment and Plan (1) CANDELARIA (acute kidney injury) Status: Acute (2) Acute respiratory failure Status: Acute (3) Altered mental status Status: Acute (4) Diastolic CHF, acute on chronic Status: Acute (5) Pleural effusion, bilateral Status: Acute (6) Pneumonia Status: Resolved (7) Aortic valve vegetation Status: Acute
[2017-12-13] MEDS: Dextrose 5%/0.45% NS 1,000 ML IV SCH (14:26)
[2017-12-13 14:31] LABS: HEMOGLOBIN 10.1 g/dL (12.0-18.0); MEAN CELL VOLUME 95.7 fl (80.0-94.0); MEAN CORPUSCULAR HEMOGLOBIN 30.9 pg (27.0-31.0); MEAN CORPUSCULAR HGB CONC 32.3 g/dL (33.0-37.0); RBC 3.27 Mil/uL (4.40-5.90); RED CELL DISTRIBUTION WIDTH 17.4 % (11.5-14.5)
[2017-12-13 14:49] LABS: BLOOD UREA NITROGEN 28 mg/dl (9-20); CALCIUM 6.5 mg/dL (8.4-10.2); GFR AFRICAN-AMERICAN > 60; GFR NON-AFRICAN AMERICAN > 60
--- NOTE | 2017-12-13 17:51 | CP.PCM.PN ---
Subjective - Date & Time of Evaluation Date of Evaluation: 12/13/17 Time of Evaluation: 17:51 - Subjective Subjective: feeling fine Objective - Vital Signs/Intake and Output Vital Signs (last 24 hours): Temp Pulse Resp BP Pulse Ox 98.5 F 88 20 181/79 H 98 12/13/17 15:50 12/13/17 16:37 12/13/17 15:50 12/13/17 16:10 12/13/17 15:50 Intake and Output: 12/13/17 12/13/17 06:59 18:59 Intake Total 160 Output Total 600 Balance -440 - Medications Medications: Current Medications Apixaban (Eliquis) 2.5 mg PO BID [facility] PRN Reason: Protocol Last Admin: 12/13/17 16:09 Dose: 2.5 mg Carbidopa/Levodopa (Sinemet) 1 tab PO TID@0700,1100,1600 [facility] Last Admin: 12/13/17 16:09 Dose: Not Given Cholecalciferol (Vitamin D) 5,000 intlu PO DAILY [facility] Last Admin: 12/13/17 08:36 Dose: 5,000 intlu Digoxin (Lanoxin) 0.125 mg IVP DAILY [facility] Last Admin: 12/13/17 08:41 Dose: 0.125 mg Diltiazem HCl (Cardizem) 60 mg PO Q8 [facility] Last Admin: 12/13/17 16:09 Dose: 60 mg Vancomycin HCl 750 mg/ Sodium (Chloride) 250 mls @ 166.667 mls/hr IVPB Q48H [facility] PRN Reason: Protocol Last Admin: 12/12/17 10:54 Dose: 166.667 mls/hr Cefepime HCl 1 gm/ Sodium (Chloride) 50 mls @ 50 mls/hr IVPB Q12 [facility] PRN Reason: Protocol Last Admin: 12/13/17 08:37 Dose: 50 mls/hr Dextrose/Sodium Chloride (Dextrose 5%/0.45% Ns 1000 Ml) 1,000 mls @ 60 mls/hr IV .[id number] [facility] Stop: 12/14/17 13:34 Last Admin: 12/13/17 14:26 Dose: 60 mls/hr Ipratropium [place] (Atrovent) 0.5 mg IH RQ4 PRN PRN Reason: Shortness of Breath Last Admin: 12/08/17 17:49 Dose: 0.5 mg Lamotrigine (Lamictal) 150 mg PO Q12@0930,2130 [facility] Last Admin: 12/13/17 08:38 Dose: 150 mg Levalbuterol HCl (Xopenex) 0.63 mg INH RQ4 PRN PRN Reason: Shortness of Breath Last Admin: 12/08/17 17:49 Dose: 0.63 mg Metoprolol Succinate (Toprol Xl) 50 mg PO BID [facility] Last Admin: 12/13/17 16:10 Dose: 50 mg Pantoprazole Sodium (Protonix Ec Tab) 40 mg PO DAILY [facility] Last Admin: 12/13/17 08:39 Dose: 40 mg - Labs Labs: 12/13/17 13:58 12/13/17 13:58 PT 20.3 Seconds (9.8-13.1) H 12/09/17 13:59 INR 1.8 (0.9-1.2) H 12/09/17 13:59 APTT 34.4 Seconds (25.6-37.1) 10/26/17 12:30 - Constitutional Appears: Well - Head Exam Head Exam: ATRAUMATIC, NORMAL INSPECTION, NORMOCEPHALIC - Eye Exam Eye Exam: EOMI, Normal appearance, PERRL Pupil Exam: NORMAL ACCOMODATION, PERRL - ENT Exam ENT Exam: Mucous Membranes Moist, Normal Exam - Neck Exam Neck Exam: Full ROM, Normal Inspection. absent: Lymphadenopathy - Respiratory Exam Respiratory Exam: Clear to Ausculation Bilateral, NORMAL BREATHING PATTERN - Cardiovascular Exam Cardiovascular Exam: REGULAR RHYTHM, +S1, +S2. absent: Murmur - GI/Abdominal Exam GI & Abdominal Exam: Soft, Normal Bowel Sounds. absent: Tenderness - Extremities Exam Extremities Exam: Full ROM, Normal Capillary Refill, Normal Inspection. absent : Joint Swelling, Pedal Edema - Neurological Exam Neurological Exam: Alert, Awake - Psychiatric Exam Psychiatric exam: Flat Affect, Normal Affect - Skin Skin Exam: Dry, Intact, Normal Color, Warm Assessment and Plan (1) A-fib Status: Chronic (2) Acute on chronic diastolic (congestive) heart failure Status: Chronic (3) Acute respiratory failure with hypoxia Status: Acute (4) Altered mental status Status: Acute (5) HTN (hypertension) Status: Chronic (6) Seizure disorder Status: Chronic (7) CANDELARIA (acute kidney injury) Status: Acute (8) Encephalopathy Status: Acute (9) Hypothermia Status: Acute (10) Pleural effusion, bilateral Status: Acute (11) Supratherapeutic international normalized ratio (INR) Status: Acute (12) Acute decompensated heart failure Status: Acute (13) Atrial fibrillation with RVR Status: Acute
--- NOTE | 2017-12-13 18:35 | CP.PCM.PN ---
Subjective - Date & Time of Evaluation Date of Evaluation: 12/13/17 Time of Evaluation: 14:00 - Subjective Subjective: lethargic , on BIPAP Objective - Vital Signs/Intake and Output Vital Signs (last 24 hours): Temp Pulse Resp BP Pulse Ox 98.5 F 88 20 181/79 H 98 12/13/17 15:50 12/13/17 16:37 12/13/17 15:50 12/13/17 16:10 12/13/17 15:50 Intake and Output: 12/13/17 12/13/17 06:59 18:59 Intake Total 160 Output Total 600 Balance -440 - Medications Medications: Current Medications Apixaban (Eliquis) 2.5 mg PO BID [facility] PRN Reason: Protocol Last Admin: 12/13/17 16:09 Dose: 2.5 mg Carbidopa/Levodopa (Sinemet) 1 tab PO TID@0700,1100,1600 [facility] Last Admin: 12/13/17 16:09 Dose: Not Given Cholecalciferol (Vitamin D) 5,000 intlu PO DAILY [facility] Last Admin: 12/13/17 08:36 Dose: 5,000 intlu Digoxin (Lanoxin) 0.125 mg IVP DAILY [facility] Last Admin: 12/13/17 08:41 Dose: 0.125 mg Diltiazem HCl (Cardizem) 60 mg PO Q8 [facility] Last Admin: 12/13/17 16:09 Dose: 60 mg Vancomycin HCl 750 mg/ Sodium (Chloride) 250 mls @ 166.667 mls/hr IVPB Q48H [facility] PRN Reason: Protocol Last Admin: 12/12/17 10:54 Dose: 166.667 mls/hr Cefepime HCl 1 gm/ Sodium (Chloride) 50 mls @ 50 mls/hr IVPB Q12 [facility] PRN Reason: Protocol Last Admin: 12/13/17 08:37 Dose: 50 mls/hr Dextrose/Sodium Chloride (Dextrose 5%/0.45% Ns 1000 Ml) 1,000 mls @ 60 mls/hr IV .[id number] [facility] Stop: 12/14/17 13:34 Last Admin: 12/13/17 14:26 Dose: 60 mls/hr Ipratropium [place] (Atrovent) 0.5 mg IH RQ4 PRN PRN Reason: Shortness of Breath Last Admin: 12/08/17 17:49 Dose: 0.5 mg Lamotrigine (Lamictal) 150 mg PO Q12@0930,2130 [facility] Last Admin: 12/13/17 08:38 Dose: 150 mg Levalbuterol HCl (Xopenex) 0.63 mg INH RQ4 PRN PRN Reason: Shortness of Breath Last Admin: 12/08/17 17:49 Dose: 0.63 mg Metoprolol Succinate (Toprol Xl) 50 mg PO BID [facility] Last Admin: 12/13/17 16:10 Dose: 50 mg Pantoprazole Sodium (Protonix Ec Tab) 40 mg PO DAILY [facility] Last Admin: 12/13/17 08:39 Dose: 40 mg - Labs Labs: 12/13/17 13:58 12/13/17 13:58 PT 20.3 Seconds (9.8-13.1) H 12/09/17 13:59 INR 1.8 (0.9-1.2) H 12/09/17 13:59 APTT 34.4 Seconds (25.6-37.1) 10/26/17 12:30 - Constitutional Appears: Chronically Ill - Head Exam Head Exam: NORMAL INSPECTION - Eye Exam Eye Exam: PERRL - ENT Exam ENT Exam: Normal Exam - Neck Exam Neck Exam: Normal Inspection - Respiratory Exam Respiratory Exam: Decreased Breath Sounds (at bases) - Cardiovascular Exam Cardiovascular Exam: REGULAR RHYTHM - GI/Abdominal Exam GI & Abdominal Exam: Soft, Normal Bowel Sounds - Extremities Exam Extremities Exam: Normal Inspection - Back Exam Additional comments: L-S lesions healing - Neurological Exam Additional comments: lethargic , arousable , no following command - Skin Skin Exam: Warm Assessment and Plan (1) Acute respiratory failure with hypoxia Assessment & Plan: Hypercapnia Status: Acute (2) Encephalopathy Status: Acute (3) Pleural effusion, bilateral Status: Acute (4) Diastolic CHF, acute on chronic Status: Acute (5) Hx of seizure disorder Status: Chronic (6) A-fib Status: Chronic (7) CANDELARIA (acute kidney injury) Status: Acute (8) Anemia Status: Chronic (9) Aortic valve vegetation Status: Acute (10) SUSAN (obstructive sleep apnea) Status: Chronic (11) Pulmonary hypertension Status: Chronic (12) Clostridium difficile infection Status: Acute - Assessment and Plan (Free Text) Plan: continue BIPAP , Xopenex , Atrovent ,Eliquis , Metropolol, Digoxin , Cefepime , Vanco , Lamictal , f/u blood work today, monitor po intake
[2017-12-13] MEDS ORDERED: Chlorhexidine Gluconate 1 APPL/PKT TP ONE (19:05)
--- NOTE | 2017-12-13 23:11 | CP.PCM.PN ---
Subjective - Date & Time of Evaluation Date of Evaluation: 12/13/17 Time of Evaluation: 22:30 - Subjective Subjective: He is suffering from hypercarbia and the opposed the Sinemet. He is otherwise he is less rigid and this might be due to his Hypercarbia and his respiratory failure. There is no seizures. The has requested to restart Carbidopa/ Levodopa and wants to give him only 1 dose. She can discuss it with Dr Escamilla Objective - Vital Signs/Intake and Output Vital Signs (last 24 hours): Temp Pulse Resp BP Pulse Ox 98.3 F 86 18 138/71 97 12/13/17 19:30 12/13/17 21:36 12/13/17 22:16 12/13/17 19:30 12/13/17 19:30 Intake and Output: 12/13/17 12/14/17 18:59 06:59 Intake Total 350 Output Total 300 Balance 50 - Medications Medications: Current Medications Apixaban (Eliquis) 2.5 mg PO BID [facility] PRN Reason: Protocol Last Admin: 12/13/17 16:09 Dose: 2.5 mg Carbidopa/Levodopa (Sinemet) 1 tab PO TID@0700,1100,1600 [facility] Last Admin: 12/13/17 16:09 Dose: Not Given Cholecalciferol (Vitamin D) 5,000 intlu PO DAILY [facility] Last Admin: 12/13/17 08:36 Dose: 5,000 intlu Digoxin (Lanoxin) 0.125 mg IVP DAILY [facility] Last Admin: 12/13/17 08:41 Dose: 0.125 mg Diltiazem HCl (Cardizem) 60 mg PO Q8 [facility] Last Admin: 12/13/17 16:09 Dose: 60 mg Vancomycin HCl 750 mg/ Sodium (Chloride) 250 mls @ 166.667 mls/hr IVPB Q48H [facility] PRN Reason: Protocol Last Admin: 12/12/17 10:54 Dose: 166.667 mls/hr Cefepime HCl 1 gm/ Sodium (Chloride) 50 mls @ 50 mls/hr IVPB Q12 [facility] PRN Reason: Protocol Last Admin: 12/13/17 20:41 Dose: 50 mls/hr Dextrose/Sodium Chloride (Dextrose 5%/0.45% Ns 1000 Ml) 1,000 mls @ 60 mls/hr IV .[id number] [facility] Stop: 12/14/17 13:34 Last Admin: 12/13/17 14:26 Dose: 60 mls/hr Ipratropium [place] (Atrovent) 0.5 mg IH RQ4 PRN PRN Reason: Shortness of Breath Last Admin: 12/08/17 17:49 Dose: 0.5 mg Lamotrigine (Lamictal) 150 mg PO Q12@0930,2130 [facility] Last Admin: 12/13/17 22:22 Dose: 150 mg Levalbuterol HCl (Xopenex) 0.63 mg INH RQ4 PRN PRN Reason: Shortness of Breath Last Admin: 12/08/17 17:49 Dose: 0.63 mg Metoprolol Succinate (Toprol Xl) 50 mg PO BID [facility] Last Admin: 12/13/17 16:10 Dose: 50 mg Pantoprazole Sodium (Protonix Ec Tab) 40 mg PO DAILY [facility] Last Admin: 12/13/17 08:39 Dose: 40 mg - Labs Labs: 12/13/17 13:58 12/13/17 13:58 PT 20.3 Seconds (9.8-13.1) H 12/09/17 13:59 INR 1.8 (0.9-1.2) H 12/09/17 13:59 APTT 34.4 Seconds (25.6-37.1) 10/26/17 12:30 Assessment and Plan (1) CANDELARIA (acute kidney injury) Status: Acute (2) Acute respiratory failure Status: Acute (3) Altered mental status Status: Acute (4) Pleural effusion, bilateral Status: Acute (5) Pneumonia Status: Resolved (6) Seizure disorder Status: Suspected (7) Encephalopathy Status: Acute
[2017-12-14 05:05] LABS: ABG ALLEN TEST YES; ARTERIAL BLOOD GAS HCO3 32.5 mmol/L (21-28); ARTERIAL BLOOD GAS HEMOGLOBIN 11.7 g/dL (11.7-17.4); ARTERIAL BLOOD GAS O2 CONTENT 15.8 ML/dL (15-23); ARTERIAL BLOOD GAS O2 SAT 98.9 % (95-98); ARTERIAL BLOOD GAS PCO2 84 mm/Hg (35-45); ARTERIAL BLOOD GAS PH 7.28 (7.35-7.45); ARTERIAL BLOOD GAS PO2 93 mm/Hg (80-100); ARTERIAL BLOOD GAS TCO2 42.1 mmol/L (22-28)
[2017-12-14 07:48] LABS: HEMOGLOBIN 11.1 g/dL (12.0-18.0); MEAN CELL VOLUME 97.8 fl (80.0-94.0); MEAN CORPUSCULAR HEMOGLOBIN 30.2 pg (27.0-31.0); MEAN CORPUSCULAR HGB CONC 30.9 g/dL (33.0-37.0); RBC 3.67 Mil/uL (4.40-5.90); RED CELL DISTRIBUTION WIDTH 17.6 % (11.5-14.5); WHITE BLOOD COUNT 11.1 K/uL (4.8-10.8)
[2017-12-14 08:22] LABS: BLOOD UREA NITROGEN 46 mg/dl (9-20); CALCIUM 8.7 mg/dL (8.4-10.2); GFR AFRICAN-AMERICAN > 60; GFR NON-AFRICAN AMERICAN > 60
[2017-12-14 08:43] LABS: INR 1.2 (0.9-1.2); PROTHROMBIN TIME 13.8 Seconds (9.8-13.1)
[2017-12-14] MEDS: Cefepime 1 GM in Sodium Chloride 0.9% 50 ML IVPB SCH (09:51)
[2017-12-14] MEDS: Dextrose 5%/0.45% NS 1,000 ML IV SCH (09:52)
[2017-12-14] MEDS: Metoprolol Succinate 50 mg XL Tab PO SCH ×2 (09:54→17:53)
[2017-12-14] MEDS: Cholecalciferol 1,000 INTLU TAB PO SCH (09:54)
[2017-12-14] MEDS: Pantoprazole 40 mg EC Tab PO SCH (09:55)
[2017-12-14] MEDS: Digoxin 500 mcg/2ml (0.5 mg/2ml) Inj IVP SCH (10:09)
[2017-12-14] MEDS ORDERED: Sod Polystyrene Sulf 15 gm/60 ml Susp PO ONE (13:16)
[2017-12-14] MEDS ORDERED: Dextrose 5%/0.45% NS 1,000 ML IV SCH (13:30)
--- NOTE | 2017-12-14 17:20 | CP.PCM.PN ---
Subjective - Date & Time of Evaluation Date of Evaluation: 12/14/17 Time of Evaluation: 13:00 - Subjective Subjective: F/U Respiratory Failure. lethargic , difficult to arouse, on BIPAP Objective - Vital Signs/Intake and Output Vital Signs (last 24 hours): Temp Pulse Resp BP Pulse Ox 97.8 F 69 20 111/62 99 12/14/17 16:14 12/14/17 16:14 12/14/17 16:14 12/14/17 16:14 12/14/17 16:14 Intake and Output: 12/14/17 12/14/17 06:59 18:59 Intake Total 350 Output Total 300 Balance 50 - Medications Medications: Current Medications Apixaban (Eliquis) 2.5 mg PO BID [facility]I PRN Reason: Protocol Last Admin: 12/14/17 09:53 Dose: 2.5 mg Carbidopa/Levodopa (Sinemet) 1 tab PO TID@0700,1100,1600 [facility] Last Admin: 12/14/17 11:43 Dose: Not Given Carbidopa/Levodopa (Sinemet) 1 tab NG ONCE ONE Stop: 12/14/17 23:48 Last Admin: 12/14/17 00:49 Dose: 1 tab Cholecalciferol (Vitamin D) 5,000 intlu PO DAILY [facility] Last Admin: 12/14/17 09:54 Dose: 5,000 intlu Digoxin (Lanoxin) 0.125 mg IVP DAILY [facility] Last Admin: 12/14/17 10:09 Dose: 0.125 mg Diltiazem HCl (Cardizem) 60 mg PO Q8 [facility] Last Admin: 12/14/17 10:01 Dose: Not Given Vancomycin HCl 750 mg/ Sodium (Chloride) 250 mls @ 166.667 mls/hr IVPB Q48H [facility] PRN Reason: Protocol Last Admin: 12/14/17 11:40 Dose: 166.667 mls/hr Cefepime HCl 1 gm/ Sodium (Chloride) 100 mls @ 100 mls/hr IVPB Q12 [facility] PRN Reason: Protocol Dextrose/Sodium Chloride (Dextrose 5%/0.45% Ns 1000 Ml) 1,000 mls @ 80 mls/hr IV .[id number] [facility] Stop: 12/15/17 13:22 Ipratropium [place] (Atrovent) 0.5 mg IH RQ4 PRN PRN Reason: Shortness of Breath Last Admin: 12/08/17 17:49 Dose: 0.5 mg Lamotrigine (Lamictal) 150 mg PO Q12@0930,2130 [facility] Last Admin: 12/14/17 09:54 Dose: 150 mg Levalbuterol HCl (Xopenex) 0.63 mg INH RQ4 PRN PRN Reason: Shortness of Breath Last Admin: 12/08/17 17:49 Dose: 0.63 mg Metoprolol Succinate (Toprol Xl) 50 mg PO BID [facility] Last Admin: 12/14/17 09:54 Dose: 50 mg Pantoprazole Sodium (Protonix Ec Tab) 40 mg PO DAILY [facility] Last Admin: 12/14/17 09:55 Dose: 40 mg - Labs Labs: 12/14/17 07:10 12/14/17 07:10 PT 13.8 Seconds (9.8-13.1) H 12/14/17 07:10 INR 1.2 (0.9-1.2) 12/14/17 07:10 APTT 34.4 Seconds (25.6-37.1) 10/26/17 12:30 - Constitutional Appears: Chronically Ill - Head Exam Head Exam: NORMAL INSPECTION - Eye Exam Eye Exam: PERRL - ENT Exam Additional comments: Nose bridge dry scab - Neck Exam Neck Exam: Normal Inspection - Respiratory Exam Respiratory Exam: Decreased Breath Sounds (at bases) - Cardiovascular Exam Cardiovascular Exam: Irregular Rhythm - GI/Abdominal Exam GI & Abdominal Exam: Soft, Normal Bowel Sounds - Extremities Exam Extremities Exam: Normal Inspection - Back Exam Additional comments: L-S lesions almost healed - Neurological Exam Additional comments: Lethargic , difficult to arouse , not following commands , generalized weakness - Skin Skin Exam: Warm Assessment and Plan (1) Acute respiratory failure with hypoxia Assessment & Plan: hypercapnic Status: Acute (2) Encephalopathy Status: Acute (3) Pleural effusion, bilateral Status: Acute (4) Diastolic CHF, acute on chronic Status: Acute (5) Hx of seizure disorder Status: Chronic (6) A-fib Status: Chronic (7) CANDELARIA (acute kidney injury) Status: Acute (8) Anemia Status: Chronic (9) Aortic valve vegetation Status: Acute (10) SUSAN (obstructive sleep apnea) Status: Chronic (11) Pulmonary hypertension Status: Chronic (12) Clostridium difficile infection Status: Acute - Assessment and Plan (Free Text) Plan: on NG tube since yesterday, letharginess . on BIPAP , ABG increased PCO2, also Na , BUN , K increased , increase BIPAP RR 18/m, increase D5W IVF, Kayexalate , close f/u
[2017-12-14] MEDS ORDERED: Cefepime 1 GM in Sodium Chloride 0.9% 100 ML IVPB SCH (21:00)
--- NOTE | 2017-12-14 22:57 | CP.PCM.PN ---
Subjective - Date & Time of Evaluation Date of Evaluation: 12/14/17 Time of Evaluation: 22:54 - Subjective Subjective: He still having Hypercarbia of P CO2 84, P O2 is 93 He is reported being more awake and alert throughout the morning the is gradually non responsive. Currently he is flaccid due to his poor respiratory function and his high P CO2 The opposes GT placement. Objective - Vital Signs/Intake and Output Vital Signs (last 24 hours): Temp Pulse Resp BP Pulse Ox 97.9 F 81 20 122/52 L 100 12/14/17 19:54 12/14/17 20:05 12/14/17 19:54 12/14/17 19:54 12/14/17 19:54 Intake and Output: 12/14/17 12/15/17 18:59 06:59 Intake Total 1926 Output Total 600 Balance 1326 - Medications Medications: Current Medications Carbidopa/Levodopa (Sinemet) 1 tab PO TID@0700,1100,1600 [facility] Last Admin: 12/14/17 17:52 Dose: Not Given Carbidopa/Levodopa (Sinemet) 1 tab NG ONCE ONE Stop: 12/14/17 23:48 Last Admin: 12/14/17 00:49 Dose: 1 tab Cholecalciferol (Vitamin D) 5,000 intlu PO DAILY [facility] Last Admin: 12/14/17 09:54 Dose: 5,000 intlu Digoxin (Lanoxin) 0.125 mg IVP DAILY [facility] Last Admin: 12/14/17 10:09 Dose: 0.125 mg Diltiazem HCl (Cardizem) 60 mg PO Q8 [facility] Last Admin: 12/14/17 17:51 Dose: Not Given Vancomycin HCl 750 mg/ Sodium (Chloride) 250 mls @ 166.667 mls/hr IVPB Q48H [facility] PRN Reason: Protocol Last Admin: 12/14/17 11:40 Dose: 166.667 mls/hr Cefepime HCl 1 gm/ Sodium (Chloride) 100 mls @ 100 mls/hr IVPB Q12 [facility] PRN Reason: Protocol Last Admin: 12/14/17 21:55 Dose: 100 mls/hr Dextrose/Sodium Chloride (Dextrose 5%/0.45% Ns 1000 Ml) 1,000 mls @ 80 mls/hr IV .[id number] [facility] Stop: 12/15/17 13:22 Ipratropium [place] (Atrovent) 0.5 mg IH RQ4 PRN PRN Reason: Shortness of Breath Last Admin: 12/08/17 17:49 Dose: 0.5 mg Lamotrigine (Lamictal) 150 mg PO Q12@0930,2130 [facility] Last Admin: 12/14/17 21:56 Dose: 150 mg Levalbuterol HCl (Xopenex) 0.63 mg INH RQ4 PRN PRN Reason: Shortness of Breath Last Admin: 12/08/17 17:49 Dose: 0.63 mg Metoprolol Succinate (Toprol Xl) 50 mg PO BID [facility] Last Admin: 12/14/17 17:53 Dose: 50 mg Pantoprazole Sodium (Protonix Ec Tab) 40 mg PO DAILY [facility] Last Admin: 12/14/17 09:55 Dose: 40 mg - Labs Labs: 12/14/17 07:10 12/14/17 07:10 PT 13.8 Seconds (9.8-13.1) H 12/14/17 07:10 INR 1.2 (0.9-1.2) 12/14/17 07:10 APTT 34.4 Seconds (25.6-37.1) 10/26/17 12:30 Assessment and Plan (1) CANDELARIA (acute kidney injury) Status: Acute (2) Acute respiratory failure Status: Acute (3) Altered mental status Status: Acute (4) Pleural effusion, bilateral Status: Acute (5) Pneumonia Status: Resolved (6) Seizure disorder Status: Suspected (7) Encephalopathy Status: Acute
--- NOTE | 2017-12-15 00:30 | CP.PCM.PN ---
Subjective - Date & Time of Evaluation Date of Evaluation: 12/15/17 Time of Evaluation: 00:27 - Subjective Subjective: Patient is flaccid, O2 Saturation is 95%. His level of consciousness is inadequate, not responsive to verbal stimuli or painful stimuli. He is on 24 hrs BIPAP BP is normal Heart rate is 133. A Stat ABG is ordered for better assessment. Objective - Vital Signs/Intake and Output Vital Signs (last 24 hours): Temp Pulse Resp BP Pulse Ox 97.9 F 81 20 122/52 L 100 12/14/17 19:54 12/14/17 20:05 12/14/17 19:54 12/14/17 19:54 12/14/17 19:54 Intake and Output: 12/14/17 12/15/17 18:59 06:59 Intake Total 1926 Output Total 600 Balance 1326 - Medications Medications: Current Medications Carbidopa/Levodopa (Sinemet) 1 tab PO TID@0700,1100,1600 [facility] Last Admin: 12/14/17 17:52 Dose: Not Given Cholecalciferol (Vitamin D) 5,000 intlu PO DAILY [facility] Last Admin: 12/14/17 09:54 Dose: 5,000 intlu Digoxin (Lanoxin) 0.125 mg IVP DAILY [facility] Last Admin: 12/14/17 10:09 Dose: 0.125 mg Diltiazem HCl (Cardizem) 60 mg PO Q8 [facility] Last Admin: 12/14/17 17:51 Dose: Not Given Vancomycin HCl 750 mg/ Sodium (Chloride) 250 mls @ 166.667 mls/hr IVPB Q48H [facility] PRN Reason: Protocol Last Admin: 12/14/17 11:40 Dose: 166.667 mls/hr Cefepime HCl 1 gm/ Sodium (Chloride) 100 mls @ 100 mls/hr IVPB Q12 [facility] PRN Reason: Protocol Last Admin: 12/14/17 21:55 Dose: 100 mls/hr Dextrose/Sodium Chloride (Dextrose 5%/0.45% Ns 1000 Ml) 1,000 mls @ 80 mls/hr IV .[id number] [facility] Stop: 12/15/17 13:22 Ipratropium [place] (Atrovent) 0.5 mg IH RQ4 PRN PRN Reason: Shortness of Breath Last Admin: 12/08/17 17:49 Dose: 0.5 mg Lamotrigine (Lamictal) 150 mg PO Q12@0930,2130 [facility] Last Admin: 12/14/17 21:56 Dose: 150 mg Levalbuterol HCl (Xopenex) 0.63 mg INH RQ4 PRN PRN Reason: Shortness of Breath Last Admin: 12/08/17 17:49 Dose: 0.63 mg Metoprolol Succinate (Toprol Xl) 50 mg PO BID [facility] Last Admin: 12/14/17 17:53 Dose: 50 mg Pantoprazole Sodium (Protonix Ec Tab) 40 mg PO DAILY [facility] Last Admin: 12/14/17 09:55 Dose: 40 mg - Labs Labs: 12/14/17 07:10 12/14/17 07:10 PT 13.8 Seconds (9.8-13.1) H 12/14/17 07:10 INR 1.2 (0.9-1.2) 12/14/17 07:10 APTT 34.4 Seconds (25.6-37.1) 10/26/17 12:30 Assessment and Plan (1) CANDELARIA (acute kidney injury) Status: Acute (2) Acute respiratory failure Status: Acute (3) Altered mental status Status: Acute (4) Pleural effusion, bilateral Status: Acute (5) Pneumonia Status: Resolved (6) Seizure disorder Status: Suspected (7) Encephalopathy Status: Acute
[2017-12-15 00:33] LABS: ABG ALLEN TEST YES; ARTERIAL BLOOD GAS HCO3 29.1 mmol/L (21-28); ARTERIAL BLOOD GAS HEMOGLOBIN 12.8 g/dL (11.7-17.4); ARTERIAL BLOOD GAS O2 CAPACITY 17.3 mL/dL (16-24); ARTERIAL BLOOD GAS O2 CONTENT 15.9 ML/dL (15-23); ARTERIAL BLOOD GAS O2 SAT 91.8 % (95-98); ARTERIAL BLOOD GAS PCO2 131 mm/Hg (35-45); ARTERIAL BLOOD GAS PH 7.09 (7.35-7.45); ARTERIAL BLOOD GAS PO2 58 mm/Hg (80-100); ARTERIAL BLOOD GAS TCO2 43.7 mmol/L (22-28)
--- NOTE | 2017-12-15 00:52 | CP.PCM.PN ---
Subjective - Date & Time of Evaluation Date of Evaluation: 12/15/17 Time of Evaluation: 00:49 - Subjective Subjective: His ABG is showing a very high P CO2 at 131, Dr Early, Hospitalist is contacted and he will intubate the patient. The was objecting the intubation, and then accepted after contacting Dr Escamilla by Phone. Patient is not responsive to verbal stimuli or painful stimuli and is transferred to the ICU for intubation and further management. His PO2 is 58 and his PH is 7.09 His condition is very critical. Objective - Vital Signs/Intake and Output Vital Signs (last 24 hours): Temp Pulse Resp BP Pulse Ox 97.9 F 81 20 122/52 L 100 12/14/17 19:54 12/14/17 20:05 12/14/17 19:54 12/14/17 19:54 12/14/17 19:54 Intake and Output: 12/14/17 12/15/17 18:59 06:59 Intake Total 1926 Output Total 600 Balance 1326 - Medications Medications: Current Medications Carbidopa/Levodopa (Sinemet) 1 tab PO TID@0700,1100,1600 [facility] Last Admin: 12/14/17 17:52 Dose: Not Given Cholecalciferol (Vitamin D) 5,000 intlu PO DAILY [facility] Last Admin: 12/14/17 09:54 Dose: 5,000 intlu Digoxin (Lanoxin) 0.125 mg IVP DAILY [facility] Last Admin: 12/14/17 10:09 Dose: 0.125 mg Diltiazem HCl (Cardizem) 60 mg PO Q8 [facility] Last Admin: 12/14/17 17:51 Dose: Not Given Vancomycin HCl 750 mg/ Sodium (Chloride) 250 mls @ 166.667 mls/hr IVPB Q48H [facility]I PRN Reason: Protocol Last Admin: 12/14/17 11:40 Dose: 166.667 mls/hr Cefepime HCl 1 gm/ Sodium (Chloride) 100 mls @ 100 mls/hr IVPB Q12 [facility]I PRN Reason: Protocol Last Admin: 12/14/17 21:55 Dose: 100 mls/hr Dextrose/Sodium Chloride (Dextrose 5%/0.45% Ns 1000 Ml) 1,000 mls @ 80 mls/hr IV .[id number] [facility] Stop: 12/15/17 13:22 Ipratropium [place] (Atrovent) 0.5 mg IH RQ4 PRN PRN Reason: Shortness of Breath Last Admin: 12/08/17 17:49 Dose: 0.5 mg Lamotrigine (Lamictal) 150 mg PO Q12@0930,2130 [facility] Last Admin: 12/14/17 21:56 Dose: 150 mg Levalbuterol HCl (Xopenex) 0.63 mg INH RQ4 PRN PRN Reason: Shortness of Breath Last Admin: 12/08/17 17:49 Dose: 0.63 mg Metoprolol Succinate (Toprol Xl) 50 mg PO BID [facility] Last Admin: 12/14/17 17:53 Dose: 50 mg Pantoprazole Sodium (Protonix Ec Tab) 40 mg PO DAILY [facility] Last Admin: 12/14/17 09:55 Dose: 40 mg - Labs Labs: 12/14/17 07:10 12/14/17 07:10 PT 13.8 Seconds (9.8-13.1) H 12/14/17 07:10 INR 1.2 (0.9-1.2) 12/14/17 07:10 APTT 34.4 Seconds (25.6-37.1) 10/26/17 12:30 Assessment and Plan (1) CANDELARIA (acute kidney injury) Status: Acute (2) Acute respiratory failure Status: Acute (3) Altered mental status Status: Acute (4) Pleural effusion, bilateral Status: Acute (5) Pneumonia Status: Resolved (6) Seizure disorder Status: Suspected (7) Encephalopathy Status: Acute
[2017-12-15] MEDS ORDERED: Levalbuterol 0.63 MG/3 ML Inhal Soln UD INH PRN (01:08)
[2017-12-15] MEDS ORDERED: Ipratropium 0.02% Inhal Soln (0.5 mg/2.5 ml) UD IH PRN (01:08)
[2017-12-15] MEDS ORDERED: Dextrose 5%/0.45% NS 1,000 ML IV SCH ×2 (01:08→06:15)
[2017-12-15] MEDS ORDERED: Sodium Chloride 3% for Inhalation 4 ML VIAL.NEB IH PRN ×2 (01:08→16:58)
--- NOTE | 2017-12-15 01:11 | PCM.PROC ---
Procedures Attestation:: I certify that I have explained the specified Operation(s) or Procedure(s), risks, benefits and reasonable alternatives to the Patient and/or other person responsible. The opportunity was given to ask questions and all questions answered - Intubation Time Out Performed: Yes Sedative: None Laryngoscope: Binh ET Tube Size: 8.0 ET Tube Uncuffed: No ET Tube Secured Locarion: Lips ET Tube Placement Confirmation: Visualized Passing Through Cords, Breath Sounds Equal Bilaterally, No Breath Sounds Over Epigastrum, Confirmation w/Capnometry Patient Tolerated Procedure: No Complications Procedure Immediate Complications: Hypotension
--- NOTE | 2017-12-15 01:12 | CP.CCUPN ---
CCU Subjective - Physician Review Subjective (Free Text): Attending: Abhi Escamilla MD Reason for transfer to ICU: Obtunded/Critical care management HPI: 77 years old male with hx of A Fib, CHF, CVA, HTN, Seizure, Pleural effusion, admitted on 09/23/17 with Acute respiratoryfailure due to Aspiration pneumonia and pleural effusion. He received multiple Thoracentesis of the left Pleural effusion with Bilateral chest tubes while in the ICU. the last Thoracentesis was 10/09/17. Bronchoscopy on 09/29/17 and intubated 09/28/17. The patient was transferred to the Telemetry unit on High flow Oxygen then converted to BIPAP. I was called to evaluate the patient who was unresponsive. ABG: pH 7.09/ 131// I&P: #. Acute on Chronic Hypercapnic/hypoxic respiratory failure - Emergent Orothrachial intubation - Post intubation CXR and ABG - Duoneb - Transfer patient to ICU - Follow ABG #. Hypotension etiology unclear - Levophed #. Metabolic Encephalopathy - Treat the Hypercapnic respiratory failure #. Chronic A Fib - Digoxin/Metoprolol/Cardizem #. Chronic Renal failure - IV Fluids #. Seizure - Lamictal #. DVT Prpophylaxis with SCD CCU Objective - Vital Signs / Intake & Output Vital Signs (Last 4 hours): Vital Signs Temp Pulse Resp BP 12/15/17 00:58 97.8 F 102 H 4 L 97/58 L Intake and Output (Last 8hrs): Intake & Output 12/14/17 12/14/17 12/15/17 14:59 22:59 06:59 Intake Total 1926 Output Total 600 Balance 1326 Intake: IV 960 Intake, Piggyback 366 Tube Feeding 600 Output: Urine 600 Urethral (Wang) 600 - Physical Exam Head: Positive for: Atraumatic, Normocephalic, Other (NG tube) Pupils: Positive for: PERRL, Sluggish Extroacular Muscles: Positive for: EOMI Conjunctiva: Positive for: Normal. Negative for: Icteric Ears: Positive for: Normal Mouth: Positive for: Moist Mucous Membranes Pharnyx: Negative for: ERYTHEMA Neck: Positive for: Normal Range of Motion. Negative for: JVD Respiratory/Chest: Positive for: Good Air Exchange, Respiratory Distress, Decreased Breath Sounds, Rhonchi (upper airway rhonchi), Tachypneic. Negative for: Accessory Muscle Use, Wheezes Cardiovascular: Positive for: Murmurs, Irregular Rhythm, Peripheal Pulses Present, Tachycardic. Negative for: Normal S1, S2, Rub Abdomen: Positive for: Normal Bowel Sounds. Negative for: Tenderness, Distention, Peritoneal Signs Upper Extremity: Positive for: Edema Lower Extremity: Positive for: Edema, NORMAL PULSES. Negative for: CALF TENDERNESS, Cyanosis Neurological: Positive for: Other (withdraws to deep pain) Skin: Positive for: Warm, Dry. Negative for: Rashes Psychiatric: Positive for: Alert, Lethargic (mental status waxwes and wanes). Negative for: Oriented x 3, Anxious, Agitated - Medications Active Medications: Active Medications Generic Name Dose Route Start Last Admin Trade Name Freq PRN Reason Stop Dose Admin Carbidopa/Levodopa 1 tab 12/15/17 07:00 Sinemet PO TID@0700,1100,1600 [facility] Cholecalciferol 5,000 intlu 12/15/17 09:00 Vitamin D PO DAILY [facility] Digoxin 0.125 mg 12/15/17 09:00 Lanoxin IVP DAILY [facility] Diltiazem HCl 60 mg 12/15/17 09:00 Cardizem PO Q8 [facility] Cefepime HCl 1 gm/ Sodium 100 mls @ 100 mls/hr 12/15/17 09:00 Chloride IVPB Q12 [facility] Protocol Dextrose/Sodium Chloride 1,000 mls @ 80 mls/hr 12/15/17 01:08 Dextrose 5%/0.45% Ns 1000 Ml IV 12/15/17 13:22 .[id number] [facility]I Vancomycin HCl 750 mg/ Sodium 250 mls @ 166.667 mls/hr 12/16/17 09:00 Chloride IVPB Q48H [facility]I Protocol Norepinephrine Bitartrate 8 mg 258 mls @ 4.83 mls/hr 12/15/17 01:07 / Dextrose IV 12/16/17 01:06 .Q24H ONE Protocol 2.5 MCG/MIN Ipratropium [place] 0.5 mg 12/15/17 01:08 Atrovent IH RQ4 PRN Shortness of Breath Lamotrigine 150 mg 12/15/17 09:30 Lamictal PO Q12@0930,2130 [facility] Levalbuterol HCl 0.63 mg 12/15/17 01:08 Xopenex INH RQ4 PRN Shortness of Breath Metoprolol Succinate 50 mg 12/15/17 09:00 Toprol Xl PO BID [facility] Pantoprazole Sodium 40 mg 12/15/17 09:00 Protonix Ec Tab PO DAILY [facility] - Patient Studies Lab Studies: Microbiology Studies 12/10/17 10:55 Blood Culture - Preliminary Blood NO GROWTH AFTER 4 DAYS Lab Studies 12/15/17 12/14/17 12/14/17 Range/Units 00:30 07:10 07:10 WBC 11.1 H (4.8-10.8) K/uL RBC 3.67 L (4.40-5.90) Mil/uL Hgb 11.1 L (12.0-18.0) g/dL Hct 35.9 (35.0-51.0) % MCV 97.8 H D (80.0-94.0) fl MCH 30.2 (27.0-31.0) pg MCHC 30.9 L (33.0-37.0) g/dL RDW 17.6 H (11.5-14.5) % Plt Count 356 (130-400) K/uL PT (9.8-13.1) Seconds INR (0.9-1.2) pCO2 131 H* (35-45) mm/Hg pO2 58 L (80-100) mm/Hg HCO3 29.1 H (21-28) mmol/L ABG pH 7.09 L* (7.35-7.45) ABG Total CO2 43.7 H (22-28) mmol/L ABG O2 Saturation 91.8 L (95-98) % ABG O2 Content 15.9 (15-23) ML/dL ABG Base Excess 5.6 H (-2.0-3.0) mmol/L ABG Hemoglobin 12.8 (11.7-17.4) g/dL ABG Carboxyhemoglobin 2.2 H (0.5-1.5) % POC ABG HHb (Measured) 7.9 H (0.0-5.0) % ABG Methemoglobin 1.3 (0.0-3.0) % ABG O2 Capacity 17.3 (16-24) mL/dL Broderick Test Yes A-a O2 Difference 135.0 mm/Hg Hgb O2 Saturation 88.5 L (95.0-98.0) % Liter Flow Vent Mode Bipap Mechanical Rate 18 FiO2 50.0 % Inspiratory BiPAP 14 Expiratory BiPAP 6 Crit Value Called To Dr robison Crit Value Called By [id number] Crit Value Read Back Y Blood Gas Notified Time 33 Sodium 150 H (132-148) mmol/l Potassium 5.9 H (3.6-5.0) MMOL/L Chloride 107 (98-107) mmol/L Carbon Dioxide 36 H (22-30) mmol/L Anion Gap 13 (10-20) BUN 46 H (9-20) mg/dl Creatinine 1.1 (0.8-1.5) mg/dl Est GFR ( Amer) > 60 Est GFR (Non-Af Amer) > 60 Random Glucose 165 H (75-110) mg/dL Calcium 8.7 (8.4-10.2) mg/dL Vancomycin Trough (5.0-10.0) ug/mL 12/14/17 12/14/17 12/14/17 Range/Units 07:10 07:10 04:57 WBC (4.8-10.8) K/uL RBC (4.40-5.90) Mil/uL Hgb (12.0-18.0) g/dL Hct (35.0-51.0) % MCV (80.0-94.0) fl MCH (27.0-31.0) pg MCHC (33.0-37.0) g/dL RDW (11.5-14.5) % Plt Count (130-400) K/uL PT 13.8 H (9.8-13.1) Seconds INR 1.2 (0.9-1.2) pCO2 84 H* (35-45) mm/Hg pO2 93 (80-100) mm/Hg HCO3 32.5 H (21-28) mmol/L ABG pH 7.28 L (7.35-7.45) ABG Total CO2 42.1 H (22-28) mmol/L ABG O2 Saturation 98.9 H (95-98) % ABG O2 Content 15.8 (15-23) ML/dL ABG Base Excess 9.8 H (-2.0-3.0) mmol/L ABG Hemoglobin 11.7 (11.7-17.4) g/dL ABG Carboxyhemoglobin 2.0 H (0.5-1.5) % POC ABG HHb (Measured) 1.1 (0.0-5.0) % ABG Methemoglobin 1.6 (0.0-3.0) % ABG O2 Capacity 16.0 (16-24) mL/dL Broderick Test Yes A-a O2 Difference 159.0 mm/Hg Hgb O2 Saturation 95.3 (95.0-98.0) % Liter Flow 30 Vent Mode Hfov Mechanical Rate FiO2 50.0 % Inspiratory BiPAP Expiratory BiPAP Crit Value Called To Edwin rn Crit Value Called By [id number] Crit Value Read Back Y Blood Gas Notified Time 504 Sodium (132-148) mmol/l Potassium (3.6-5.0) MMOL/L Chloride (98-107) mmol/L Carbon Dioxide (22-30) mmol/L Anion Gap (10-20) BUN (9-20) mg/dl Creatinine (0.8-1.5) mg/dl Est GFR ( Amer) Est GFR (Non-Af Amer) Random Glucose (75-110) mg/dL Calcium (8.4-10.2) mg/dL Vancomycin Trough 6.9 (5.0-10.0) ug/mL Laboratory Results - last 24 hr 12/14/17 12/14/17 12/14/17 04:57 07:10 07:10 WBC RBC Hgb Hct MCV MCH MCHC RDW Plt Count PT 13.8 H INR 1.2 pCO2 84 H* pO2 93 HCO3 32.5 H ABG pH 7.28 L ABG Total CO2 42.1 H ABG O2 Saturation 98.9 H ABG O2 Content 15.8 ABG Base Excess 9.8 H ABG Hemoglobin 11.7 ABG Carboxyhemoglobin 2.0 H POC ABG HHb (Measured) 1.1 ABG Methemoglobin 1.6 ABG O2 Capacity 16.0 Broderick Test Yes A-a O2 Difference 159.0 Hgb O2 Saturation 95.3 Liter Flow 30 Vent Mode Hfov Mechanical Rate FiO2 50.0 Inspiratory BiPAP Expiratory BiPAP Crit Value Called To Edwin rn Crit Value Called By [id number] Crit Value Read Back Y Blood Gas Notified Time 504 Sodium Potassium Chloride Carbon Dioxide Anion Gap BUN Creatinine Est GFR ( Amer) Est GFR (Non-Af Amer) Random Glucose Calcium Vancomycin Trough 6.9 12/14/17 12/14/17 12/15/17 07:10 07:10 00:30 WBC 11.1 H RBC 3.67 L Hgb 11.1 L Hct 35.9 MCV 97.8 H D MCH 30.2 MCHC 30.9 L RDW 17.6 H Plt Count 356 PT INR pCO2 131 H* pO2 58 L HCO3 29.1 H ABG pH 7.09 L* ABG Total CO2 43.7 H ABG O2 Saturation 91.8 L ABG O2 Content 15.9 ABG Base Excess 5.6 H ABG Hemoglobin 12.8 ABG Carboxyhemoglobin 2.2 H POC ABG HHb (Measured) 7.9 H ABG Methemoglobin 1.3 ABG O2 Capacity 17.3 Broderick Test Yes A-a O2 Difference 135.0 Hgb O2 Saturation 88.5 L Liter Flow Vent Mode Bipap Mechanical Rate 18 FiO2 50.0 Inspiratory BiPAP 14 Expiratory BiPAP 6 Crit Value Called To Dr robison Crit Value Called By [id number] Crit Value Read Back Y Blood Gas Notified Time 33 Sodium 150 H Potassium 5.9 H Chloride 107 Carbon Dioxide 36 H Anion Gap 13 BUN 46 H Creatinine 1.1 Est GFR ( Amer) > 60 Est GFR (Non-Af Amer) > 60 Random Glucose 165 H Calcium 8.7 Vancomycin Trough Fingerstick Blood Sugar Results: 83 Assessment/Plan - Date & Time Date: 12/15/17 Time: 01:12
[2017-12-15 01:58] LABS: ABG ALLEN TEST YES; ARTERIAL BLOOD GAS HCO3 29.6 mmol/L (21-28); ARTERIAL BLOOD GAS HEMOGLOBIN 11.7 g/dL (11.7-17.4); ARTERIAL BLOOD GAS O2 SAT 99.9 % (95-98); ARTERIAL BLOOD GAS PCO2 50 mm/Hg (35-45); ARTERIAL BLOOD GAS PH 7.41 (7.35-7.45); ARTERIAL BLOOD GAS PO2 95 mm/Hg (80-100); ARTERIAL BLOOD GAS TCO2 33.2 mmol/L (22-28)
[2017-12-15 05:13] LABS: ABG ALLEN TEST YES; ARTERIAL BLOOD GAS HCO3 31.6 mmol/L (21-28); ARTERIAL BLOOD GAS HEMOGLOBIN 10.8 g/dL (11.7-17.4); ARTERIAL BLOOD GAS O2 CAPACITY 14.9 mL/dL (16-24); ARTERIAL BLOOD GAS O2 CONTENT 14.9 ML/dL (15-23); ARTERIAL BLOOD GAS O2 SAT 100.1 % (95-98); ARTERIAL BLOOD GAS PCO2 43 mm/Hg (35-45); ARTERIAL BLOOD GAS PH 7.49 (7.35-7.45); ARTERIAL BLOOD GAS PO2 125 mm/Hg (80-100); ARTERIAL BLOOD GAS TCO2 34.1 mmol/L (22-28)
[2017-12-15 06:37] LABS: BASO # 0.1 K/uL (0.0-0.2); BASO % 0.6 % (0.0-2.0); EOS % 0.1 % (0.0-4.0); HEMOGLOBIN 9.8 g/dL (12.0-18.0); LYMPH # 0.5 K/uL (1.0-4.3); MEAN CORPUSCULAR HGB CONC 31.3 g/dL (33.0-37.0); MEAN PLATELET VOLUME 7.5 fl (7.2-11.7); MONO # 0.7 K/uL (0.0-0.8); MONO % 5.6 % (0.0-10.0); NEUT % 89.7 % (50.0-75.0); PLATELET COUNT 291 K/uL (130-400); RBC 3.27 Mil/uL (4.40-5.90); WHITE BLOOD COUNT 13.4 K/uL (4.8-10.8)
[2017-12-15 06:43] LABS: BLOOD UREA NITROGEN 45 mg/dl (9-20); CALCIUM 8.4 mg/dL (8.4-10.2); GFR AFRICAN-AMERICAN > 60; GFR NON-AFRICAN AMERICAN 58
[2017-12-15] MEDS: Dextrose 5%/0.45% NS 1,000 ML IV SCH (08:00)
[2017-12-15] MEDS: Cefepime 1 GM in Sodium Chloride 0.9% 100 ML IVPB SCH ×2 (08:26→21:06)
[2017-12-15] MEDS: Cholecalciferol 1,000 INTLU TAB PO SCH (08:28)
[2017-12-15] MEDS: Pantoprazole 40 mg EC Tab PO SCH (08:29)
[2017-12-15] MEDS ORDERED: Metoprolol Succinate 50 mg XL Tab PO SCH ×2 (09:00)
[2017-12-15] MEDS: Digoxin 500 mcg/2ml (0.5 mg/2ml) Inj IVP SCH (09:08)
--- NOTE | 2017-12-15 09:28 | RAD ---
HISTORY: new intubation check ETT placement COMPARISON: Chest radiograph dated 12/10/2017. FINDINGS: LUNGS: Pulmonary vascular congestion. Right mid lung atelectasis. Bibasilar atelectasis. PLEURA: Small bilateral pleural effusions. No appreciable pneumothorax. CARDIOVASCULAR: Left subclavian access pacemaker redemonstrated. Atherosclerotic aortic calcifications. Cardiomediastinal silhouette stably enlarged. OSSEOUS STRUCTURES: No significant abnormalities. VISUALIZED UPPER ABDOMEN: Normal. OTHER FINDINGS: Interval placement of endotracheal tube with tip between the clavicles and the apoorva. Enteric tube, unchanged. Right upper extremity PICC, unchanged. IMPRESSION: Interval placement of endotracheal tube in satisfactory position. No significant interval change.
--- NOTE | 2017-12-15 09:56 | RAD ---
HISTORY: reevaluate ETT; F/U COMPARISON: Chest radiograph performed approximately 5 hours prior. FINDINGS: LUNGS: Pulmonary vascular congestion. Right midlung atelectasis. Bibasilar atelectasis. PLEURA: Small bilateral pleural effusions. No pneumothorax apparent. CARDIOVASCULAR: Left subclavian access pacemaker redemonstrated. Atherosclerotic aortic calcifications. Cardiomediastinal silhouette stably enlarged. OSSEOUS STRUCTURES: Unchanged. VISUALIZED UPPER ABDOMEN: Normal. OTHER FINDINGS: Endotracheal and enteric tubes, unchanged. Right upper extremity PICC, unchanged. IMPRESSION: Stable lines and tubes. No significant interval change.
[2017-12-15 12:49] LABS: BANDS 2 % (0-2); LYMPHOCYTE 3 % (20-50); METAMYELOCYTE 1 % (0-0); MONOCYTE 4 % (0-10); NEUTROPHIL 90 % (42-75); PLATELET ESTIMATE NORMAL (NORMAL); TOTAL CELLS COUNTED 100
[2017-12-15 12:50] LABS: ANISOCYTOSIS SLIGHT
[2017-12-15 12:51] LABS: HYPOCHROMIC SLIGHT; OVALOCYTES SLIGHT; SCHISTOCYTES SLIGHT; TOXIC GRANULATION PRESENT
--- NOTE | 2017-12-15 13:48 | CP.PCM.PN ---
Subjective - Date & Time of Evaluation Date of Evaluation: 12/15/17 Time of Evaluation: 06:00 - Subjective Subjective: events noted resp failure- now intubated Dr Cole to re-eval poor prognosis Objective - Vital Signs/Intake and Output Vital Signs (last 24 hours): Temp Pulse Resp BP Pulse Ox 99.9 F H 86 25 H 119/63 100 12/15/17 12:00 12/15/17 12:00 12/15/17 12:00 12/15/17 12:00 12/15/17 12:00 Intake and Output: 12/15/17 12/15/17 06:59 18:59 Intake Total 2782 0 Output Total 1125 Balance 1657 0 - Medications Medications: Current Medications Carbidopa/Levodopa (Sinemet) 1 tab PO TID@0700,1100,1600 [facility] Last Admin: 12/15/17 11:32 Dose: 1 tab Cholecalciferol (Vitamin D) 5,000 intlu PO DAILY [facility] Last Admin: 12/15/17 08:28 Dose: 5,000 intlu Digoxin (Lanoxin) 0.125 mg IVP DAILY [facility] Last Admin: 12/15/17 09:08 Dose: 0.125 mg Diltiazem HCl (Cardizem) 60 mg PO Q8 [facility] Last Admin: 12/15/17 08:23 Dose: 60 mg Cefepime HCl 1 gm/ Sodium (Chloride) 100 mls @ 100 mls/hr IVPB Q12 [facility] PRN Reason: Protocol Last Admin: 12/15/17 08:26 Dose: 100 mls/hr Vancomycin HCl 750 mg/ Sodium (Chloride) 250 mls @ 166.667 mls/hr IVPB Q48H YUKI PRN Reason: Protocol Norepinephrine Bitartrate 8 mg (/ Dextrose) 258 mls @ 4.83 mls/hr IV .Q24H ONE ; 2.5 MCG/MIN PRN Reason: Protocol Stop: 12/16/17 01:06 Last Titration: 12/15/17 10:54 Dose: 2.5 mcg/min, 4.83 mls/hr Dextrose/Sodium Chloride (Dextrose 5%/0.45% Ns 1000 Ml) 1,000 mls @ 40 mls/hr IV .Q24H YUKI Stop: 12/16/17 06:08 Last Admin: 12/15/17 08:00 Dose: 40 mls/hr Ipratropium [place] (Atrovent) 0.5 mg IH RQ4 PRN PRN Reason: Shortness of Breath Lamotrigine (Lamictal) 150 mg PO Q12@0930,2130 [facility] Last Admin: 12/15/17 08:41 Dose: 150 mg Levalbuterol HCl (Xopenex) 0.63 mg INH RQ4 PRN PRN Reason: Shortness of Breath Metoprolol Tartrate (Lopressor) 25 mg PO Q12 [facility] Last Admin: 12/15/17 08:43 Dose: 25 mg Pantoprazole Sodium (Protonix Ec Tab) 40 mg PO DAILY [facility] Last Admin: 12/15/17 08:29 Dose: 40 mg - Labs Labs: 12/15/17 05:18 12/15/17 05:18 PT 13.8 Seconds (9.8-13.1) H 12/14/17 07:10 INR 1.2 (0.9-1.2) 12/14/17 07:10 APTT 34.4 Seconds (25.6-37.1) 10/26/17 12:30 - Constitutional Appears: Confused, Cachectic, Chronically Ill - Head Exam Head Exam: ATRAUMATIC, NORMAL INSPECTION, NORMOCEPHALIC - Eye Exam Eye Exam: EOMI, Normal appearance, PERRL Pupil Exam: NORMAL ACCOMODATION, PERRL - ENT Exam ENT Exam: Mucous Membranes Moist, Normal Exam - Neck Exam Neck Exam: Full ROM, Normal Inspection. absent: Lymphadenopathy - Respiratory Exam Respiratory Exam: Clear to Ausculation Bilateral, NORMAL BREATHING PATTERN - Cardiovascular Exam Cardiovascular Exam: REGULAR RHYTHM, +S1, +S2. absent: Murmur - GI/Abdominal Exam GI & Abdominal Exam: Soft, Normal Bowel Sounds. absent: Tenderness - Rectal Exam Rectal Exam: NORMAL INSPECTION - Exam Exam: Circumcision, NORMAL INSPECTION External exam: NORMAL EXTERNAL EXAM Speculum exam: NORMAL SPECULUM EXAM Bimanual exam: NORMAL BIMANUAL EXAM - Extremities Exam Extremities Exam: Full ROM, Normal Capillary Refill, Normal Inspection. absent : Joint Swelling, Pedal Edema - Back Exam Back Exam: NORMAL INSPECTION - Neurological Exam Neurological Exam: Alert, Awake, CN II-XII Intact, Normal Gait, Oriented x3 - Psychiatric Exam Psychiatric exam: Normal Affect, Normal Mood - Skin Skin Exam: Dry, Intact, Normal Color, Warm Assessment and Plan (1) CANDELARIA (acute kidney injury) Status: Acute (2) Acute respiratory failure Status: Acute (3) Altered mental status Status: Acute (4) Diastolic CHF, acute on chronic Status: Acute (5) Pleural effusion, bilateral Status: Acute (6) Pneumonia Status: Resolved (7) Aortic valve vegetation Status: Acute
--- NOTE | 2017-12-15 14:42 | CP.PCM.PN ---
Subjective - Date & Time of Evaluation Date of Evaluation: 12/13/17 Time of Evaluation: 19:35 - Subjective Subjective: Patient's came into ICU looking for me and requested NGT be replaced. reported that NGT had been removed by Nursing 2 days prior due to coiling in the mouth and not subsequently replaced. I see no orders to discontinue NGT at that time. Enteral tube feeds with Vital HN have been on hold with tube out. Calls placed to Dr. Escamilla to clarify status of NGT and awaiting call back. Patient presently lethargic on BiPAP support and not responsive to verbal stimuli, nor does he open eyes to pain or name-calling. He has been feed food PO and meds PO in the interim time NGT has been out. Nursing reports to me that there has been no improvement in mental status since he has been on BiPAP support. He had been on HFNC therapy prior to placement on BiPAP trial. As I am awaiting Dr. Escamilla's call back and is urging to have NGT re-placed , I see no contraindication that to NGT placement. In my opinion, further PO feedings would be at high risk for an aspiration event. Informed that the NGT will cause a mild leak via the BiPAP mask to which BiPAP settings could be adjusted to maintain and ensure a TV above 300ml. 18F NGT placed without difficulty via Left nares and position conformed on auscultation and aspiration of gastric secretions with the Venkat syringe. Minimal gag reflex noted on NGT passage. Patient observed on BiPAP after NGT placement and on settings of IPAP 12. EPAP 6, and 50% oxygen, patient was able to generate a TV up to 387 ml.
--- NOTE | 2017-12-15 19:29 | CP.PCM.PN ---
Subjective - Date & Time of Evaluation Date of Evaluation: 12/15/17 Time of Evaluation: 16:45 - Subjective Subjective: F/U Respiratory Failure. intubated, minimal response to tactil stimuli Objective - Vital Signs/Intake and Output Vital Signs (last 24 hours): Temp Pulse Resp BP Pulse Ox 99.6 F 86 16 145/72 100 12/15/17 16:00 12/15/17 18:00 12/15/17 18:00 12/15/17 18:00 12/15/17 18:00 Intake and Output: 12/15/17 12/16/17 18:59 06:59 Intake Total 1260 Output Total 750 Balance 510 - Medications Medications: Current Medications Carbidopa/Levodopa (Sinemet) 1 tab PO TID@0700,1100,1600 [facility] Last Admin: 12/15/17 17:01 Dose: Not Given Cholecalciferol (Vitamin D) 5,000 intlu PO DAILY [facility] Last Admin: 12/15/17 08:28 Dose: 5,000 intlu Digoxin (Lanoxin) 0.125 mg IVP DAILY [facility] Last Admin: 12/15/17 09:08 Dose: 0.125 mg Diltiazem HCl (Cardizem) 60 mg PO Q8 [facility] Last Admin: 12/15/17 17:31 Dose: 60 mg Cefepime HCl 1 gm/ Sodium (Chloride) 100 mls @ 100 mls/hr IVPB Q12 [facility] PRN Reason: Protocol Last Admin: 12/15/17 08:26 Dose: 100 mls/hr Vancomycin HCl 750 mg/ Sodium (Chloride) 250 mls @ 166.667 mls/hr IVPB Q48H [facility] PRN Reason: Protocol Norepinephrine Bitartrate 8 mg (/ Dextrose) 258 mls @ 4.83 mls/hr IV .Q24H ONE ; 2.5 MCG/MIN PRN Reason: Protocol Stop: 12/16/17 01:06 Last Titration: 12/15/17 18:15 Dose: 0 mcg/min, 0 mls/hr Dextrose/Sodium Chloride (Dextrose 5%/0.45% Ns 1000 Ml) 1,000 mls @ 40 mls/hr IV .Q24H [facility] Stop: 12/16/17 06:08 Last Admin: 12/15/17 08:00 Dose: 40 mls/hr Ipratropium [place] (Atrovent) 0.5 mg IH RQ4 PRN PRN Reason: Shortness of Breath Lamotrigine (Lamictal) 150 mg PO Q12@0930,2130 [facility] Last Admin: 12/15/17 08:41 Dose: 150 mg Levalbuterol HCl (Xopenex) 0.63 mg INH RQ4 PRN PRN Reason: Shortness of Breath Metoprolol Tartrate (Lopressor) 25 mg PO Q12 [facility] Last Admin: 12/15/17 08:43 Dose: 25 mg Pantoprazole Sodium (Protonix Ec Tab) 40 mg PO DAILY [facility] Last Admin: 12/15/17 08:29 Dose: 40 mg - Labs Labs: 12/15/17 05:18 12/15/17 05:18 PT 13.8 Seconds (9.8-13.1) H 12/14/17 07:10 INR 1.2 (0.9-1.2) 12/14/17 07:10 APTT 34.4 Seconds (25.6-37.1) 10/26/17 12:30 - Constitutional Appears: Chronically Ill - Head Exam Head Exam: NORMAL INSPECTION - Eye Exam Eye Exam: PERRL - ENT Exam Additional comments: Intubated - Neck Exam Neck Exam: Normal Inspection - Respiratory Exam Respiratory Exam: Decreased Breath Sounds (at bases) - Cardiovascular Exam Cardiovascular Exam: Irregular Rhythm - GI/Abdominal Exam GI & Abdominal Exam: Soft, Normal Bowel Sounds - Extremities Exam Extremities Exam: Normal Inspection - Back Exam Additional comments: L-S lesion almost healed - Neurological Exam Additional comments: intubated , minimal response to tactil stimuli - Skin Skin Exam: Warm Assessment and Plan (1) Acute respiratory failure with hypoxia Status: Acute (2) Encephalopathy Status: Acute (3) Pleural effusion, bilateral Status: Acute (4) Diastolic CHF, acute on chronic Status: Acute (5) Hx of seizure disorder Status: Chronic (6) A-fib Status: Chronic (7) CANDELARIA (acute kidney injury) Status: Acute (8) Anemia Status: Chronic (9) Aortic valve vegetation Status: Acute (10) SUSAN (obstructive sleep apnea) Status: Chronic (11) Pulmonary hypertension Status: Chronic (12) Clostridium difficile infection Status: Acute - Assessment and Plan (Free Text) Plan: ICU Time: 40 min.
[2017-12-16] MEDS: Dextrose 5%/0.45% NS 1,000 ML IV SCH (00:55)
[2017-12-16] MEDS ORDERED: Dextrose 5%/0.45% NS 1,000 ML IV SCH (01:30)
[2017-12-16 05:26] LABS: ABG ALLEN TEST YES; ARTERIAL BLOOD GAS HCO3 35.3 mmol/L (21-28); ARTERIAL BLOOD GAS HEMOGLOBIN 9.6 g/dL (11.7-17.4); ARTERIAL BLOOD GAS O2 CAPACITY 13.5 mL/dL (16-24); ARTERIAL BLOOD GAS O2 CONTENT 13.5 ML/dL (15-23); ARTERIAL BLOOD GAS O2 SAT 100.3 % (95-98); ARTERIAL BLOOD GAS PCO2 41 mm/Hg (35-45); ARTERIAL BLOOD GAS PH 7.56 (7.35-7.45); ARTERIAL BLOOD GAS PO2 133 mm/Hg (80-100)
[2017-12-16 06:17] LABS: BASO % 0.4 % (0.0-2.0); EOS # 0.1 K/uL (0.0-0.7); EOS % 1.7 % (0.0-4.0); HEMOGLOBIN 9.3 g/dL (12.0-18.0); LYMPH # 1.1 K/uL (1.0-4.3); LYMPH % 13.1 % (20.0-40.0); MEAN CELL VOLUME 94.6 fl (80.0-94.0); MEAN CORPUSCULAR HEMOGLOBIN 30.1 pg (27.0-31.0); MEAN CORPUSCULAR HGB CONC 31.8 g/dL (33.0-37.0); MEAN PLATELET VOLUME 7.5 fl (7.2-11.7); MONO # 0.6 K/uL (0.0-0.8); MONO % 6.9 % (0.0-10.0); NEUT # 6.3 K/uL (1.8-7.0); NEUT % 77.9 % (50.0-75.0); RBC 3.08 Mil/uL (4.40-5.90); RED CELL DISTRIBUTION WIDTH 17.8 % (11.5-14.5); WHITE BLOOD COUNT 8.1 K/uL (4.8-10.8)
[2017-12-16 06:37] LABS: ALB/GLOB RATIO 0.7 (1.0-2.1); ALBUMIN 2.6 g/dL (3.5-5.0); ALT/SGPT 26 U/L (21-72); AST/SGOT 39 U/L (17-59); BLOOD UREA NITROGEN 45 mg/dl (9-20); GFR AFRICAN-AMERICAN > 60; GFR NON-AFRICAN AMERICAN 53
--- NOTE | 2017-12-16 07:20 | CP.CCUPN ---
CCU Subjective - Physician Review Subjective (Free Text): 11/12/17 The patient was Seen and examined by me at the bedside in the ICU, Medical records reviewed and Management issues were discussed and formulated with the house staff. 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 Escamilla to come to ED for "observation" She states that he has been on antibiotics for cough for 2 days and now develop hallucination secondary to antibiotics. In the ER he was very hypothermic, lethargic but respond to basic commands CXR showing bilateral pleural effusion and bibasilar opacity Tachypnea, placed on 50% VM Blood culture drawn and Received one dose of IV Rocephin and Zithromax Admitted to the ICU for Acute hypercarbic and Hypoxemic respiratory failure and severe sepsis Chest CT scan revealed moderate bilateral pleural effusion with atelectasis PT also had Elevated INR, received TOTAL 4U FFP 09/24, Underwent Left (8 fr) pig tail placement with about 500 serious fluid drained 09/25, Underwent Right (8 fr) pig tail placement and Left CT removed Right pig tail not functioning and Patient Underwent US guided placement of a right chest tube, 8 fr today Also Underwent US guided dual lumen picc placement via the right basilic vein 10/16, Underwent STEVEN with elective cardioversion (negative for clot) 10/14, US guided left thoracentesis 10/30, Underwent 8 fr pigtail drainage catheter placement left chest. Evaluated by Ana Lilia therapy Evaluated by PT/OT Patient clinically improved and was transferred out of ICU to telemetry 12/16/17: Interval Events 12/15, he was Lethargic, elevated CO2, he was re-intubated and brought back to the ICU This mornig he is more awake, and interactive Orally intubated Comfortable, NAD Clinically improving and hemodynamically stable No Vasopressors Last 24H I&O 2340/1050 Afebrile A-Fib on monitor, HR controlled, Resumed AC with Eliquis, tolerating Tolerating tube feeding Followed up by wound care AM Labs, showing stable renal function (BUN/Cr 45/1.3) and no leucocytosis (WBC 8.1) ABG 7.56/41/133/35/100 CCU Objective - Vital Signs / Intake & Output Vital Signs (Last 4 hours): Vital Signs Temp Pulse Resp BP Pulse Ox 12/16/17 06:00 76 16 108/51 L 100 12/16/17 04:00 99 F 75 16 126/78 100 Intake and Output (Last 8hrs): Intake & Output 12/15/17 12/16/17 12/16/17 22:59 06:59 14:59 Intake Total 1520 820 Output Total 750 300 Balance 770 520 Intake: IV 720 320 Intake, Piggyback 100 Tube Feeding 600 400 Free Water Flush 200 Output: Urine 750 300 Urethral (Wang) 750 300 - Physical Exam Head: Positive for: Atraumatic, Normocephalic, Other (NG tube) Pupils: Positive for: PERRL, Sluggish Extroacular Muscles: Positive for: EOMI Conjunctiva: Positive for: Normal. Negative for: Icteric Ears: Positive for: Normal Mouth: Positive for: Moist Mucous Membranes Pharnyx: Negative for: ERYTHEMA Neck: Positive for: Normal Range of Motion. Negative for: JVD Respiratory/Chest: Positive for: Good Air Exchange, Respiratory Distress, Decreased Breath Sounds, Rhonchi (upper airway rhonchi), Tachypneic. Negative for: Accessory Muscle Use, Wheezes Cardiovascular: Positive for: Murmurs, Irregular Rhythm, Peripheal Pulses Present, Tachycardic. Negative for: Normal S1, S2, Rub Abdomen: Positive for: Normal Bowel Sounds. Negative for: Tenderness, Distention, Peritoneal Signs Upper Extremity: Positive for: Edema Lower Extremity: Positive for: Edema, NORMAL PULSES. Negative for: CALF TENDERNESS, Cyanosis Neurological: Positive for: Other (withdraws to deep pain) Skin: Positive for: Warm, Dry. Negative for: Rashes Psychiatric: Positive for: Alert, Lethargic (mental status waxwes and wanes). Negative for: Oriented x 3, Anxious, Agitated - Medications Active Medications: Active Medications Generic Name Dose Route Start Last Admin Trade Name Freq PRN Reason Stop Dose Admin Apixaban 2.5 mg 12/15/17 21:00 12/15/17 21:06 Eliquis PO 2.5 mg Q12 YUKI Administration Protocol Carbidopa/Levodopa 1 tab 12/15/17 07:00 12/16/17 06:31 Sinemet PO Not Given TID@0700,1100,1600 [facility] Cholecalciferol 5,000 intlu 12/15/17 09:00 12/15/17 08:28 Vitamin D PO 5,000 intlu DAILY YUKI Administration Digoxin 0.125 mg 12/15/17 09:00 12/15/17 09:08 Lanoxin IVP 0.125 mg DAILY YUKI Administration Diltiazem HCl 60 mg 12/15/17 09:00 12/16/17 02:03 Cardizem PO 60 mg Q8 YUKI Administration Cefepime HCl 1 gm/ Sodium 100 mls @ 100 mls/hr 12/15/17 09:00 12/15/17 21:06 Chloride IVPB 100 mls/hr Q12 YUKI Administration Protocol Vancomycin HCl 750 mg/ Sodium 250 mls @ 166.667 mls/hr 12/16/17 09:00 Chloride IVPB Q48H YUKI Protocol Dextrose/Sodium Chloride 1,000 mls @ 40 mls/hr 12/16/17 01:30 12/16/17 02:02 Dextrose 5%/0.45% Ns 1000 Ml IV 12/17/17 01:24 40 mls/hr .Q24H YUKI Administration Ipratropium [place] 0.5 mg 12/15/17 01:08 Atrovent IH RQ4 PRN Shortness of Breath Lamotrigine 150 mg 12/15/17 09:30 12/15/17 21:08 Lamictal PO 150 mg Q12@0930,2130 [facility]I Administration Levalbuterol HCl 0.63 mg 12/15/17 01:08 Xopenex INH RQ4 PRN Shortness of Breath Metoprolol Tartrate 25 mg 12/15/17 09:00 12/15/17 21:07 Lopressor PO 25 mg Q12 YUKI Administration Pantoprazole Sodium 40 mg 12/15/17 09:00 12/15/17 08:29 Protonix Ec Tab PO 40 mg DAILY [facility]I Administration - Patient Studies Lab Studies: Microbiology Studies 12/10/17 10:55 Blood Culture - Final Blood NO GROWTH AFTER 5 DAYS Gram Stain - Final TEST NOT PERFORMED Lab Studies 12/16/17 12/16/17 12/16/17 Range/Units 06:11 06:11 06:11 WBC 8.1 (4.8-10.8) K/uL RBC 3.08 L (4.40-5.90) Mil/uL Hgb 9.3 L (12.0-18.0) g/dL Hct 29.2 L (35.0-51.0) % MCV 94.6 H (80.0-94.0) fl MCH 30.1 (27.0-31.0) pg MCHC 31.8 L (33.0-37.0) g/dL RDW 17.8 H (11.5-14.5) % Plt Count 261 (130-400) K/uL MPV 7.5 (7.2-11.7) fl Neut % (Auto) 77.9 H (50.0-75.0) % Lymph % (Auto) 13.1 L (20.0-40.0) % [place] % (Auto) 6.9 (0.0-10.0) % Eos % (Auto) 1.7 (0.0-4.0) % Baso % (Auto) 0.4 (0.0-2.0) % Neut # (Auto) 6.3 (1.8-7.0) K/uL Lymph # (Auto) 1.1 (1.0-4.3) K/uL [place] # (Auto) 0.6 (0.0-0.8) K/uL Eos # (Auto) 0.1 (0.0-0.7) K/uL Baso # (Auto) 0.0 (0.0-0.2) K/uL Neutrophils % (Manual) (42-75) % Band Neutrophils % (0-2) % Lymphocytes % (Manual) (20-50) % Monocytes % (Manual) (0-10) % Metamyelocytes % (0-0) % Toxic Granulation Platelet Estimate (NORMAL) Hypochromasia (manual) Anisocytosis (manual) Ovalocytes Schistocytes pCO2 (35-45) mm/Hg pO2 (80-100) mm/Hg HCO3 (21-28) mmol/L ABG pH (7.35-7.45) ABG Total CO2 (22-28) mmol/L ABG O2 Saturation (95-98) % ABG O2 Content (15-23) ML/dL ABG Base Excess (-2.0-3.0) mmol/L ABG Hemoglobin (11.7-17.4) g/dL ABG Carboxyhemoglobin (0.5-1.5) % POC ABG HHb (Measured) (0.0-5.0) % ABG Methemoglobin (0.0-3.0) % ABG O2 Capacity (16-24) mL/dL Broderick Test A-a O2 Difference mm/Hg Hgb O2 Saturation (95.0-98.0) % Vent Mode Mechanical Rate FiO2 % Tidal Volume PEEP Sodium 148 (132-148) mmol/l Potassium 3.0 L (3.6-5.0) MMOL/L Chloride 106 (98-107) mmol/L Carbon Dioxide 36 H (22-30) mmol/L Anion Gap 9 L (10-20) BUN 45 H (9-20) mg/dl Creatinine 1.3 (0.8-1.5) mg/dl Est GFR ( Amer) > 60 Est GFR (Non-Af Amer) 53 Random Glucose 120 H (75-110) mg/dL Calcium 8.0 L (8.4-10.2) mg/dL Total Bilirubin 0.3 (0.2-1.3) mg/dl AST 39 (17-59) U/L ALT 26 (21-72) U/L Alkaline Phosphatase 96 (38-126) U/L Total Protein 6.1 L (6.3-8.2) G/DL Albumin 2.6 L D (3.5-5.0) g/dL Globulin 3.5 (2.2-3.9) gm/dL Albumin/Globulin Ratio 0.7 L (1.0-2.1) Digoxin 1.0 (0.8-2.0) ng/mL 12/16/17 12/15/17 Range/Units 05:09 05:18 WBC (4.8-10.8) K/uL RBC (4.40-5.90) Mil/uL Hgb (12.0-18.0) g/dL Hct (35.0-51.0) % MCV (80.0-94.0) fl MCH (27.0-31.0) pg MCHC (33.0-37.0) g/dL RDW (11.5-14.5) % Plt Count (130-400) K/uL MPV (7.2-11.7) fl Neut % (Auto) (50.0-75.0) % Lymph % (Auto) (20.0-40.0) % [place] % (Auto) (0.0-10.0) % Eos % (Auto) (0.0-4.0) % Baso % (Auto) (0.0-2.0) % Neut # (Auto) (1.8-7.0) K/uL Lymph # (Auto) (1.0-4.3) K/uL [place] # (Auto) (0.0-0.8) K/uL Eos # (Auto) (0.0-0.7) K/uL Baso # (Auto) (0.0-0.2) K/uL Neutrophils % (Manual) 90 H (42-75) % Band Neutrophils % 2 (0-2) % Lymphocytes % (Manual) 3 L (20-50) % Monocytes % (Manual) 4 (0-10) % Metamyelocytes % 1 H (0-0) % Toxic Granulation Present Platelet Estimate Normal (NORMAL) Hypochromasia (manual) Slight Anisocytosis (manual) Slight Ovalocytes Slight Schistocytes Slight pCO2 41 (35-45) mm/Hg pO2 133 H (80-100) mm/Hg HCO3 35.3 H (21-28) mmol/L ABG pH 7.56 H (7.35-7.45) ABG Total CO2 38.0 H (22-28) mmol/L ABG O2 Saturation 100.3 H (95-98) % ABG O2 Content 13.5 L (15-23) ML/dL ABG Base Excess 13.3 H (-2.0-3.0) mmol/L ABG Hemoglobin 9.6 L (11.7-17.4) g/dL ABG Carboxyhemoglobin 1.0 (0.5-1.5) % POC ABG HHb (Measured) -0.3 L (0.0-5.0) % ABG Methemoglobin 1.4 (0.0-3.0) % ABG O2 Capacity 13.5 L (16-24) mL/dL Broderick Test Yes A-a O2 Difference 172.0 mm/Hg Hgb O2 Saturation 97.9 (95.0-98.0) % Vent Mode Prvc ac Mechanical Rate 16 FiO2 50.0 % Tidal Volume 450 PEEP 5 Sodium (132-148) mmol/l Potassium (3.6-5.0) MMOL/L Chloride (98-107) mmol/L Carbon Dioxide (22-30) mmol/L Anion Gap (10-20) BUN (9-20) mg/dl Creatinine (0.8-1.5) mg/dl Est GFR ( Amer) Est GFR (Non-Af Amer) Random Glucose (75-110) mg/dL Calcium (8.4-10.2) mg/dL Total Bilirubin (0.2-1.3) mg/dl AST (17-59) U/L ALT (21-72) U/L Alkaline Phosphatase (38-126) U/L Total Protein (6.3-8.2) G/DL Albumin (3.5-5.0) g/dL Globulin (2.2-3.9) gm/dL Albumin/Globulin Ratio (1.0-2.1) Digoxin (0.8-2.0) ng/mL Laboratory Results - last 24 hr 12/15/17 12/16/17 12/16/17 05:18 05:09 06:11 WBC 8.1 RBC 3.08 L Hgb 9.3 L Hct 29.2 L MCV 94.6 H MCH 30.1 MCHC 31.8 L RDW 17.8 H Plt Count 261 MPV 7.5 Neut % (Auto) 77.9 H Lymph % (Auto) 13.1 L [place] % (Auto) 6.9 Eos % (Auto) 1.7 Baso % (Auto) 0.4 Neut # (Auto) 6.3 Lymph # (Auto) 1.1 [place] # (Auto) 0.6 Eos # (Auto) 0.1 Baso # (Auto) 0.0 Neutrophils % (Manual) 90 H Band Neutrophils % 2 Lymphocytes % (Manual) 3 L Monocytes % (Manual) 4 Metamyelocytes % 1 H Toxic Granulation Present Platelet Estimate Normal Hypochromasia (manual) Slight Anisocytosis (manual) Slight Ovalocytes Slight Schistocytes Slight pCO2 41 pO2 133 H HCO3 35.3 H ABG pH 7.56 H ABG Total CO2 38.0 H ABG O2 Saturation 100.3 H ABG O2 Content 13.5 L ABG Base Excess 13.3 H ABG Hemoglobin 9.6 L ABG Carboxyhemoglobin 1.0 POC ABG HHb (Measured) -0.3 L ABG Methemoglobin 1.4 ABG O2 Capacity 13.5 L Broderick Test Yes A-a O2 Difference 172.0 Hgb O2 Saturation 97.9 Vent Mode Prvc ac Mechanical Rate 16 FiO2 50.0 Tidal Volume 450 PEEP 5 Sodium Potassium Chloride Carbon Dioxide Anion Gap BUN Creatinine Est GFR ( Amer) Est GFR (Non-Af Amer) Random Glucose Calcium Total Bilirubin AST ALT Alkaline Phosphatase Total Protein Albumin Globulin Albumin/Globulin Ratio Digoxin 12/16/17 12/16/17 06:11 06:11 WBC RBC Hgb Hct MCV MCH MCHC RDW Plt Count MPV Neut % (Auto) Lymph % (Auto) [place] % (Auto) Eos % (Auto) Baso % (Auto) Neut # (Auto) Lymph # (Auto) [place] # (Auto) Eos # (Auto) Baso # (Auto) Neutrophils % (Manual) Band Neutrophils % Lymphocytes % (Manual) Monocytes % (Manual) Metamyelocytes % Toxic Granulation Platelet Estimate Hypochromasia (manual) Anisocytosis (manual) Ovalocytes Schistocytes pCO2 pO2 HCO3 ABG pH ABG Total CO2 ABG O2 Saturation ABG O2 Content ABG Base Excess ABG Hemoglobin ABG Carboxyhemoglobin POC ABG HHb (Measured) ABG Methemoglobin ABG O2 Capacity Broderick Test A-a O2 Difference Hgb O2 Saturation Vent Mode Mechanical Rate FiO2 Tidal Volume PEEP Sodium 148 Potassium 3.0 L Chloride 106 Carbon Dioxide 36 H Anion Gap 9 L BUN 45 H Creatinine 1.3 Est GFR ( Amer) > 60 Est GFR (Non-Af Amer) 53 Random Glucose 120 H Calcium 8.0 L Total Bilirubin 0.3 AST 39 ALT 26 Alkaline Phosphatase 96 Total Protein 6.1 L Albumin 2.6 L D Globulin 3.5 Albumin/Globulin Ratio 0.7 L Digoxin 1.0 Fingerstick Blood Sugar Results: 83 Critical Care Progress Note - Ventilator Checklist Head of Bed 30 Degrees: Yes Daily Sedation Vacation: Yes Daily Assessment of Readiness to Wean: Yes Daily Spontaneous Breathing Trial: Yes PUD Prophalyxis: Yes DVT Prophylaxis: Yes Oral Care with Chlorhexidine Gluconate {CHG}: Yes - Extremities/Vascular Does the Patient have a Central Venous Catheter?: Yes Does the Patient need a Central Venous Catheter?: Yes Does the Patient have a Wang Catheter?: Yes Does the Patient need a Wang Catheter?: Yes Assessment/Plan (1) Acute respiratory failure with hypoxia Current Visit: Yes Status: Acute Priority: High Comment: Acute hypercarbic and Hypoxemic respiratory failure secondary to likely aspiration pneumonia with pleural effusion in the setting of severe Respiratory muscle weakness Continue with ICU care for hemodynamic and Respiratory monitoring Vent weanig as tolerate Daily SAT/SBT IV Vancomycin and Cefapime S/P IV Vancomycin, Meropenem and Metronidazole PRN Diuresis with Aldactone 25 mg PO BID and IV lasix 40 mg daily Strict I&O, negative fluid balance Aggressive pulmonary toilet, chest PT, suctioning nebulizer treatment Maintain aspiration precautions GI/DVT PPX (2) CANDELARIA (acute kidney injury) Current Visit: Yes Status: Deleted Priority: High Comment: Improved renal function. BU/CR 45/1.3 Off all nephrotoxic medications Renally adjust medication dose (3) Altered mental status Current Visit: Yes Status: Acute Priority: High Comment: More awake, interactive Toxic/metabolic encephalopathy, multifactorial in the sitting of Acute hypercarbic and Hypoxemic respiratory failure, pneumonia, uremia , sepsis (4) Pleural effusion, bilateral Current Visit: Yes Status: Acute Priority: High Comment: corrected coagulopathy 09/24, Underwent Left pig tail placement today with about 500 serious fluid drained 09/25, Underwent Right (8 fr) pig tail placement and Left CT removed 10/01, US guided placement of a right chest tube, 8 fr 10/14, US guided left thoracentesis. 10/30, Underwent 8 fr pigtail drainage catheter placement left chest. (5) A-fib Current Visit: No Status: Chronic Priority: High Comment: Continue Diltiazem HCl (Cardizem) 60 mg PO Q8 YUKI Continue Metoprolol Tartrate (Lopressor) 25 mg PO Q12 YUKI HR better Resumed AC with Eliquis (6) Pulmonary hypertension Current Visit: Yes Status: Acute Comment: Continue Revatio 20 mg PO BID (7) Seizure disorder Current Visit: No Status: Chronic Priority: Medium Comment: Continue LamoTRIgine [Lamictal] 150 mg BID
--- NOTE | 2017-12-16 08:16 | CP.PCM.PN ---
Subjective - Date & Time of Evaluation Date of Evaluation: 12/15/17 Time of Evaluation: 19:00 - Subjective Subjective: Pt over the weekend was intubated secondary to hypercarbia HR controlled drowsy and lethargic Objective - Vital Signs/Intake and Output Vital Signs (last 24 hours): Temp Pulse Resp BP Pulse Ox 99 F 76 16 108/51 L 100 12/16/17 04:00 12/16/17 06:00 12/16/17 06:00 12/16/17 06:00 12/16/17 06:00 Intake and Output: 12/16/17 12/16/17 06:59 18:59 Intake Total 1080 Output Total 300 Balance 780 - Medications Medications: Current Medications Apixaban (Eliquis) 2.5 mg PO Q12 [facility] PRN Reason: Protocol Last Admin: 12/15/17 21:06 Dose: 2.5 mg Carbidopa/Levodopa (Sinemet) 1 tab PO TID@0700,1100,1600 [facility] Last Admin: 12/16/17 06:31 Dose: Not Given Cholecalciferol (Vitamin D) 5,000 intlu PO DAILY [facility] Last Admin: 12/15/17 08:28 Dose: 5,000 intlu Digoxin (Lanoxin) 0.125 mg IVP DAILY [facility] Last Admin: 12/15/17 09:08 Dose: 0.125 mg Diltiazem HCl (Cardizem) 60 mg PO Q8 [facility] Last Admin: 12/16/17 02:03 Dose: 60 mg Cefepime HCl 1 gm/ Sodium (Chloride) 100 mls @ 100 mls/hr IVPB Q12 [facility] PRN Reason: Protocol Last Admin: 12/15/17 21:06 Dose: 100 mls/hr Vancomycin HCl 750 mg/ Sodium (Chloride) 250 mls @ 166.667 mls/hr IVPB Q48H [facility] PRN Reason: Protocol Dextrose/Sodium Chloride (Dextrose 5%/0.45% Ns 1000 Ml) 1,000 mls @ 40 mls/hr IV .Q24H [facility] Stop: 12/17/17 01:24 Last Admin: 12/16/17 02:02 Dose: 40 mls/hr Ipratropium [place] (Atrovent) 0.5 mg IH RQ4 PRN PRN Reason: Shortness of Breath Lamotrigine (Lamictal) 150 mg PO Q12@0930,2130 [facility] Last Admin: 12/15/17 21:08 Dose: 150 mg Levalbuterol HCl (Xopenex) 0.63 mg INH RQ4 PRN PRN Reason: Shortness of Breath Metoprolol Tartrate (Lopressor) 25 mg PO Q12 [facility] Last Admin: 12/15/17 21:07 Dose: 25 mg Pantoprazole Sodium (Protonix Ec Tab) 40 mg PO DAILY [facility] Last Admin: 12/15/17 08:29 Dose: 40 mg - Labs Labs: 12/16/17 06:11 12/16/17 06:11 PT 13.8 Seconds (9.8-13.1) H 12/14/17 07:10 INR 1.2 (0.9-1.2) 12/14/17 07:10 APTT 34.4 Seconds (25.6-37.1) 10/26/17 12:30 - Constitutional Appears: Well, In Acute Distress, Confused - Head Exam Head Exam: ATRAUMATIC, NORMAL INSPECTION, NORMOCEPHALIC - Eye Exam Eye Exam: Normal appearance, PERRL Pupil Exam: NORMAL ACCOMODATION, PERRL - ENT Exam ENT Exam: Mucous Membranes Moist, Normal Exam Additional comments: ETT - Neck Exam Neck Exam: Full ROM, Normal Inspection. absent: Lymphadenopathy - Respiratory Exam Respiratory Exam: Clear to Ausculation Bilateral, NORMAL BREATHING PATTERN - Cardiovascular Exam Cardiovascular Exam: Irregular Rhythm, +S1, +S2, Murmur - GI/Abdominal Exam GI & Abdominal Exam: Soft, Normal Bowel Sounds. absent: Tenderness - Extremities Exam Extremities Exam: Full ROM, Normal Capillary Refill, Normal Inspection. absent : Joint Swelling, Pedal Edema - Back Exam Back Exam: NORMAL INSPECTION - Neurological Exam Neurological Exam: Altered - Psychiatric Exam Psychiatric exam: Normal Affect, Normal Mood - Skin Skin Exam: Dry, Intact, Normal Color, Warm Assessment and Plan (1) A-fib Assessment & Plan: rate controlled on AC, CCB, digoxin and BB Status: Chronic (2) Acute on chronic diastolic (congestive) heart failure Assessment & Plan: intermittent lasix Status: Chronic (3) Acute respiratory failure with hypoxia Status: Acute (4) Altered mental status Status: Acute (5) HTN (hypertension) Status: Chronic (6) Seizure disorder Status: Chronic (7) CANDELARIA (acute kidney injury) Status: Acute (8) Encephalopathy Status: Acute (9) Hypothermia Status: Acute (10) Pleural effusion, bilateral Status: Acute (11) Supratherapeutic international normalized ratio (INR) Status: Acute (12) Acute decompensated heart failure Status: Acute (13) Atrial fibrillation with RVR Status: Acute
[2017-12-16] MEDS: Pantoprazole 40 mg EC Tab PO SCH (08:41)
[2017-12-16] MEDS: Cholecalciferol 1,000 INTLU TAB PO SCH (08:42)
[2017-12-16] MEDS: Digoxin 500 mcg/2ml (0.5 mg/2ml) Inj IVP SCH (08:44)
[2017-12-16] MEDS: Cefepime 1 GM in Sodium Chloride 0.9% 100 ML IVPB SCH ×2 (08:45→21:30)
[2017-12-16] MEDS ORDERED: Potassium Chloride 20 mEq/15 ml LIQ UD PO ONE (08:50)
--- NOTE | 2017-12-16 09:27 | RAD ---
HISTORY: Intubation n COMPARISON: Comparison chest dated 12/15/2017. FINDINGS: In situ ETT, tip of which lies approximately 6 cm above apoorva. There is also an NGT, the tip of which has not been included on this film though distal aspect does lie well below EG junction. No change right-sided PICC line unchanged LUNGS: Left lower lobe opacity likely represent some combination of atelectasis/infiltrate and effusion. There is mild right basilar atelectasis and or infiltrate with small right-sided effusion. Elliptical shaped density in the mid to lower lung field may represent fluid in the fissure. PLEURA: No significant pleural effusion identified, no pneumothorax apparent. CARDIOVASCULAR: Single lead pacemaker unchanged. Heart is enlarged. OSSEOUS STRUCTURES: No significant abnormalities. VISUALIZED UPPER ABDOMEN: Normal. OTHER FINDINGS: None. IMPRESSION: Support lines and tubes as above. Left lower lobe opacity likely represent some combination of atelectasis/infiltrate and effusion. There is mild right basilar atelectasis and or infiltrate with small right-sided effusion. Elliptical shaped density in the mid to lower lung field may represent fluid in the fissure.
[2017-12-16] MEDS: Potassium CL 10 MEQ/50 ML 50 ML IVPB SCH ×3 (09:58→14:26)
--- NOTE | 2017-12-16 15:31 | CP.PCM.PN ---
Subjective - Date & Time of Evaluation Date of Evaluation: 12/16/17 Time of Evaluation: 09:00 - Subjective Subjective: F/U Respiratory failure intubated , awake , follows simple commands Objective - Vital Signs/Intake and Output Vital Signs (last 24 hours): Temp Pulse Resp BP Pulse Ox 98.7 F 71 16 131/59 L 100 12/16/17 12:00 12/16/17 12:00 12/16/17 12:00 12/16/17 12:00 12/16/17 12:00 Intake and Output: 12/16/17 12/16/17 06:59 18:59 Intake Total 1080 770 Output Total 300 220 Balance 780 550 - Medications Medications: Current Medications Apixaban (Eliquis) 2.5 mg PO Q12 [facility] PRN Reason: Protocol Last Admin: 12/16/17 08:42 Dose: 2.5 mg Cholecalciferol (Vitamin D) 5,000 intlu PO DAILY [facility] Last Admin: 12/16/17 08:42 Dose: 5,000 intlu Digoxin (Lanoxin) 0.125 mg IVP DAILY [facility] Last Admin: 12/16/17 08:44 Dose: 0.125 mg Diltiazem HCl (Cardizem) 60 mg PO Q8 [facility] Last Admin: 12/16/17 08:41 Dose: 60 mg Cefepime HCl 1 gm/ Sodium (Chloride) 100 mls @ 100 mls/hr IVPB Q12 [facility] PRN Reason: Protocol Last Admin: 12/16/17 08:45 Dose: 100 mls/hr Vancomycin HCl 750 mg/ Sodium (Chloride) 250 mls @ 166.667 mls/hr IVPB Q48H [facility] PRN Reason: Protocol Last Admin: 12/16/17 08:35 Dose: 166.667 mls/hr Dextrose/Sodium Chloride (Dextrose 5%/0.45% Ns 1000 Ml) 1,000 mls @ 40 mls/hr IV .Q24H [facility] Stop: 12/17/17 01:24 Last Admin: 12/16/17 02:02 Dose: 40 mls/hr Ipratropium [place] (Atrovent) 0.5 mg IH RQ4 PRN PRN Reason: Shortness of Breath Lamotrigine (Lamictal) 150 mg PO Q12@0930,2130 [facility] Last Admin: 12/16/17 08:43 Dose: 150 mg Levalbuterol HCl (Xopenex) 0.63 mg INH RQ4 PRN PRN Reason: Shortness of Breath Metoprolol Tartrate (Lopressor) 25 mg PO Q12 [facility] Last Admin: 12/16/17 08:44 Dose: 25 mg Pantoprazole Sodium (Protonix Ec Tab) 40 mg PO DAILY [facility] Last Admin: 12/16/17 08:41 Dose: 40 mg - Labs Labs: 12/16/17 06:11 12/16/17 06:11 PT 13.8 Seconds (9.8-13.1) H 12/14/17 07:10 INR 1.2 (0.9-1.2) 12/14/17 07:10 APTT 34.4 Seconds (25.6-37.1) 10/26/17 12:30 - Constitutional Appears: Chronically Ill - Head Exam Head Exam: NORMAL INSPECTION - Eye Exam Eye Exam: PERRL - ENT Exam Additional comments: Intubated - Neck Exam Neck Exam: Normal Inspection - Respiratory Exam Respiratory Exam: Decreased Breath Sounds (at bases) - Cardiovascular Exam Cardiovascular Exam: Irregular Rhythm - GI/Abdominal Exam GI & Abdominal Exam: Soft, Normal Bowel Sounds - Extremities Exam Extremities Exam: Normal Inspection - Back Exam Additional comments: L-S healing lesions healing - Neurological Exam Additional comments: awake, follows simple commands , generalized weakness - Psychiatric Exam Additional comments: Intubated - Skin Skin Exam: Warm Assessment and Plan (1) Acute respiratory failure with hypoxia Status: Acute (2) Encephalopathy Status: Acute (3) Pleural effusion, bilateral Status: Acute (4) Diastolic CHF, acute on chronic Status: Acute (5) Hx of seizure disorder Status: Chronic (6) A-fib Status: Chronic (7) CANDELARIA (acute kidney injury) Status: Acute (8) Anemia Status: Chronic (9) Aortic valve vegetation Status: Acute (10) SUSAN (obstructive sleep apnea) Status: Chronic (11) Pulmonary hypertension Status: Chronic (12) Clostridium difficile infection Status: Acute - Assessment and Plan (Free Text) Plan: CPAP- PS trial as discussed with Platform Power Technician , f/u ABG , continue rest of treatment ICU Time: 37 min.
[2017-12-16 16:22] LABS: ABG ALLEN TEST YES; ARTERIAL BLOOD GAS HCO3 35.8 mmol/L (21-28); ARTERIAL BLOOD GAS O2 SAT 100.2 % (95-98); ARTERIAL BLOOD GAS PCO2 43 mm/Hg (35-45); ARTERIAL BLOOD GAS PH 7.55 (7.35-7.45); ARTERIAL BLOOD GAS PO2 150 mm/Hg (80-100); ARTERIAL BLOOD GAS TCO2 38.9 mmol/L (22-28)
[2017-12-17 05:20] LABS: HEMOGLOBIN 9.2 g/dL (12.0-18.0); MEAN CELL VOLUME 94.5 fl (80.0-94.0); MEAN CORPUSCULAR HEMOGLOBIN 30.1 pg (27.0-31.0); MEAN CORPUSCULAR HGB CONC 31.9 g/dL (33.0-37.0); RBC 3.04 Mil/uL (4.40-5.90); RED CELL DISTRIBUTION WIDTH 17.4 % (11.5-14.5); WHITE BLOOD COUNT 7.7 K/uL (4.8-10.8)
[2017-12-17 05:42] LABS: ABG ALLEN TEST YES; ARTERIAL BLOOD GAS HCO3 33.6 mmol/L (21-28); ARTERIAL BLOOD GAS HEMOGLOBIN 9.5 g/dL (11.7-17.4); ARTERIAL BLOOD GAS O2 CAPACITY 13.3 mL/dL (16-24); ARTERIAL BLOOD GAS O2 CONTENT 13.4 ML/dL (15-23); ARTERIAL BLOOD GAS O2 SAT 100.5 % (95-98); ARTERIAL BLOOD GAS PCO2 43 mm/Hg (35-45); ARTERIAL BLOOD GAS PH 7.52 (7.35-7.45); ARTERIAL BLOOD GAS PO2 131 mm/Hg (80-100); ARTERIAL BLOOD GAS TCO2 36.4 mmol/L (22-28)
[2017-12-17 05:51] LABS: BLOOD UREA NITROGEN 33 mg/dl (9-20); CALCIUM 7.9 mg/dL (8.4-10.2); GFR AFRICAN-AMERICAN > 60; GFR NON-AFRICAN AMERICAN > 60
[2017-12-17] MEDS: Digoxin 500 mcg/2ml (0.5 mg/2ml) Inj IVP SCH (09:32)
[2017-12-17] MEDS: Cefepime 1 GM in Sodium Chloride 0.9% 100 ML IVPB SCH ×2 (09:34→21:02)
[2017-12-17] MEDS: Pantoprazole 40 mg EC Tab PO SCH (09:35)
[2017-12-17] MEDS: Cholecalciferol 1,000 INTLU TAB PO SCH (09:35)
--- NOTE | 2017-12-17 12:07 | RAD ---
HISTORY: Re-evaluate. COMPARISON: Multiple serial examinations preceding the most recent study: December 16, 2017. FINDINGS: LUNGS: Stable lower lobe infiltrates and peripheral right upper lobe infiltrate. PLEURA: Stable bilateral pleural effusions CARDIOVASCULAR: Stable cardiomegaly OSSEOUS STRUCTURES: No significant abnormalities. VISUALIZED UPPER ABDOMEN: Normal. OTHER FINDINGS: Stable, satisfactory position ventilatory, vascular and nasogastric apparatus. IMPRESSION: No significant interval change compared to the prior examination(s).
[2017-12-17 12:21] LABS: ABG ALLEN TEST YES; ARTERIAL BLOOD GAS O2 SAT 100.2 % (95-98); ARTERIAL BLOOD GAS PCO2 49 mm/Hg (35-45); ARTERIAL BLOOD GAS PH 7.48 (7.35-7.45); ARTERIAL BLOOD GAS PO2 108 mm/Hg (80-100)
--- NOTE | 2017-12-17 13:04 | CP.CCUPN ---
CCU Subjective - Physician Review Subjective (Free Text): 11/12/17 The patient was Seen and examined by me at the bedside in the ICU, Medical records reviewed and Management issues were discussed and formulated with the house staff. 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 Escamilla to come to ED for "observation" She states that he has been on antibiotics for cough for 2 days and now develop hallucination secondary to antibiotics. In the ER he was very hypothermic, lethargic but respond to basic commands CXR showing bilateral pleural effusion and bibasilar opacity Tachypnea, placed on 50% VM Blood culture drawn and Received one dose of IV Rocephin and Zithromax Admitted to the ICU for Acute hypercarbic and Hypoxemic respiratory failure and severe sepsis Chest CT scan revealed moderate bilateral pleural effusion with atelectasis PT also had Elevated INR, received TOTAL 4U FFP 09/24, Underwent Left (8 fr) pig tail placement with about 500 serious fluid drained 09/25, Underwent Right (8 fr) pig tail placement and Left CT removed Right pig tail not functioning and Patient Underwent US guided placement of a right chest tube, 8 fr today Also Underwent US guided dual lumen picc placement via the right basilic vein 10/16, Underwent STEVEN with elective cardioversion (negative for clot) 10/14, US guided left thoracentesis 10/30, Underwent 8 fr pigtail drainage catheter placement left chest. Evaluated by Ana Lilia therapy Evaluated by PT/OT Patient clinically improved and was transferred out of ICU to telemetry 12/17/17 12:59 Interval Events 12/15, he was Lethargic, elevated CO2, he was re-intubated and brought back to the ICU, He tolerated PSV yesterday for about 8 hours, placed back on PRVC This mornig he is more awake, and interactive Orally intubated Comfortable, NAD Clinically improving and hemodynamically stable No Vasopressors Last 24H I&O 2650/1120 Afebrile A-Fib on monitor, HR controlled, Resumed AC with Eliquis, tolerating Tolerating tube feeding Followed up by wound care AM Labs, showing Leucocytosis trending down, WBC 7.7K Improved renal function (BUN/Cr 45/1.3--->33/0.9) He was placed on PSV this morning with tapering PS Tolerating CPAP trial, adequate saturation but low TV ABG pn CPAP trial with PS 10, FIO2 of 40% 7.48/49/108/34/100 CCU Objective - Vital Signs / Intake & Output Vital Signs (Last 4 hours): Vital Signs Temp Pulse Resp BP Pulse Ox 12/17/17 12:00 98.1 F 68 29 H 155/56 H 100 12/17/17 09:33 74 144/74 12/17/17 09:30 68 144/74 Intake and Output (Last 8hrs): Intake & Output 12/16/17 12/17/17 12/17/17 22:59 06:59 14:59 Intake Total 940 740 80 Output Total 300 500 20 Balance 640 240 60 Intake: IV 440 340 80 Oral 150 Tube Feeding 200 300 Free Water Flush 150 100 Output: Gastric Amount 20 Stomach 20 Urine 300 500 Urethral (Wang) 300 500 - Physical Exam Head: Positive for: Atraumatic, Normocephalic, Other (NG tube) Pupils: Positive for: PERRL, Sluggish Extroacular Muscles: Positive for: EOMI Conjunctiva: Positive for: Normal. Negative for: Icteric Ears: Positive for: Normal Mouth: Positive for: Moist Mucous Membranes Pharnyx: Negative for: ERYTHEMA Neck: Positive for: Normal Range of Motion. Negative for: JVD Respiratory/Chest: Positive for: Good Air Exchange, Respiratory Distress, Decreased Breath Sounds, Rhonchi (upper airway rhonchi), Tachypneic. Negative for: Accessory Muscle Use, Wheezes Cardiovascular: Positive for: Murmurs, Irregular Rhythm, Peripheal Pulses Present, Tachycardic. Negative for: Normal S1, S2, Rub Abdomen: Positive for: Normal Bowel Sounds. Negative for: Tenderness, Distention, Peritoneal Signs Upper Extremity: Positive for: Edema Lower Extremity: Positive for: Edema, NORMAL PULSES. Negative for: CALF TENDERNESS, Cyanosis Neurological: Positive for: Other (withdraws to deep pain) Skin: Positive for: Warm, Dry. Negative for: Rashes Psychiatric: Positive for: Alert, Lethargic (mental status waxwes and wanes). Negative for: Oriented x 3, Anxious, Agitated - Medications Active Medications: Active Medications Generic Name Dose Route Start Last Admin Trade Name Freq PRN Reason Stop Dose Admin Apixaban 2.5 mg 12/15/17 21:00 12/17/17 09:29 Eliquis PO 2.5 mg Q12 [facility] Administration Protocol Cholecalciferol 5,000 intlu 12/15/17 09:00 12/17/17 09:35 Vitamin D PO 5,000 intlu DAILY [facility] Administration Digoxin 0.125 mg 12/15/17 09:00 12/17/17 09:32 Lanoxin IVP 0.125 mg DAILY [facility] Administration Diltiazem HCl 60 mg 12/15/17 09:00 12/17/17 09:30 Cardizem PO 60 mg Q8 [facility] Administration Cefepime HCl 1 gm/ Sodium 100 mls @ 100 mls/hr 12/15/17 09:00 12/17/17 09:34 Chloride IVPB 100 mls/hr Q12 [facility] Administration Protocol Vancomycin HCl 750 mg/ Sodium 250 mls @ 166.667 mls/hr 12/16/17 09:00 08:35 Chloride IVPB 166.667 mls/hr Q48H [facility] Administration Protocol Ipratropium [place] 0.5 mg 12/15/17 01:08 Atrovent IH RQ4 PRN Shortness of Breath Lamotrigine 150 mg 12/15/17 09:30 12/17/17 09:31 Lamictal PO 150 mg Q12@0930,2130 [facility] Administration Levalbuterol HCl 0.63 mg 12/15/17 01:08 Xopenex INH RQ4 PRN Shortness of Breath Metoprolol Tartrate 25 mg 12/15/17 09:00 12/17/17 09:33 Lopressor PO 25 mg Q12 [facility] Administration Pantoprazole Sodium 40 mg 12/15/17 09:00 12/17/17 09:35 Protonix Ec Tab PO 40 mg DAILY [facility] Administration - Patient Studies Lab Studies: Microbiology Studies 12/15/17 06:11 Gram Stain - Final Trachasp 12/15/17 08:20 MRSA Culture (Admit) - Final Naris MRSA NOT DETECTED Lab Studies 12/17/17 12/17/17 12/17/17 Range/Units 12:09 05:17 04:20 WBC (4.8-10.8) K/uL RBC (4.40-5.90) Mil/uL Hgb (12.0-18.0) g/dL Hct (35.0-51.0) % MCV (80.0-94.0) fl MCH (27.0-31.0) pg MCHC (33.0-37.0) g/dL RDW (11.5-14.5) % Plt Count (130-400) K/uL pCO2 49 H 43 (35-45) mm/Hg pO2 108 H 131 H (80-100) mm/Hg HCO3 34.0 H 33.6 H (21-28) mmol/L ABG pH 7.48 H 7.52 H (7.35-7.45) ABG Total CO2 38.0 H 36.4 H (22-28) mmol/L ABG O2 Saturation 100.2 H 100.5 H (95-98) % ABG O2 Content 13.4 L (15-23) ML/dL ABG Base Excess 11.6 H 11.1 H (-2.0-3.0) mmol/L ABG Hemoglobin 9.5 L (11.7-17.4) g/dL ABG Carboxyhemoglobin 1.3 (0.5-1.5) % POC ABG HHb (Measured) -0.5 L (0.0-5.0) % ABG Methemoglobin 1.0 (0.0-3.0) % ABG O2 Capacity 13.3 L (16-24) mL/dL Broderick Test Yes Yes ABG Potassium 4.2 (3.6-5.2) mmol/L A-a O2 Difference 116.0 100.0 mm/Hg Hgb O2 Saturation 98.2 H (95.0-98.0) % Sodium 144.0 147 (132-148) mmol/L Chloride 111.0 H 108 H (98-107) mmol/L Glucose 106 (75-110) mg/dL Lactate 1.0 (0.7-2.1) mmol/L Vent Mode Psv Prvc ac Mechanical Rate 12 FiO2 40.0 40.0 % Tidal Volume 400 PEEP 5 5 Pressure Support 10 Potassium 4.1 (3.6-5.0) MMOL/L Carbon Dioxide 34 H (22-30) mmol/L Anion Gap 9 L (10-20) BUN 33 H (9-20) mg/dl Creatinine 0.9 (0.8-1.5) mg/dl Est GFR ( Amer) > 60 Est GFR (Non-Af Amer) > 60 Random Glucose 131 H (75-110) mg/dL Calcium 7.9 L (8.4-10.2) mg/dL Arterial Blood Potassium 4.2 (3.6-5.2) mmol/L 12/17/17 12/16/17 Range/Units 04:20 15:54 WBC 7.7 (4.8-10.8) K/uL RBC 3.04 L (4.40-5.90) Mil/uL Hgb 9.2 L (12.0-18.0) g/dL Hct 28.7 L (35.0-51.0) % MCV 94.5 H (80.0-94.0) fl MCH 30.1 (27.0-31.0) pg MCHC 31.9 L (33.0-37.0) g/dL RDW 17.4 H (11.5-14.5) % Plt Count 233 (130-400) K/uL pCO2 43 (35-45) mm/Hg pO2 150 H (80-100) mm/Hg HCO3 35.8 H (21-28) mmol/L ABG pH 7.55 H (7.35-7.45) ABG Total CO2 38.9 H (22-28) mmol/L ABG O2 Saturation 100.2 H (95-98) % ABG O2 Content (15-23) ML/dL ABG Base Excess 13.9 H (-2.0-3.0) mmol/L ABG Hemoglobin (11.7-17.4) g/dL ABG Carboxyhemoglobin (0.5-1.5) % POC ABG HHb (Measured) (0.0-5.0) % ABG Methemoglobin (0.0-3.0) % ABG O2 Capacity (16-24) mL/dL Broderick Test Yes ABG Potassium 4.5 (3.6-5.2) mmol/L A-a O2 Difference 153.0 mm/Hg Hgb O2 Saturation (95.0-98.0) % Sodium 145.0 (132-148) mmol/L Chloride 113.0 H (98-107) mmol/L Glucose 126 H (75-110) mg/dL Lactate 1.3 (0.7-2.1) mmol/L Vent Mode Cpap Mechanical Rate FiO2 50.0 % Tidal Volume PEEP 5 Pressure Support 15 Potassium (3.6-5.0) MMOL/L Carbon Dioxide (22-30) mmol/L Anion Gap (10-20) BUN (9-20) mg/dl Creatinine (0.8-1.5) mg/dl Est GFR ( Amer) Est GFR (Non-Af Amer) Random Glucose (75-110) mg/dL Calcium (8.4-10.2) mg/dL Arterial Blood Potassium 4.5 (3.6-5.2) mmol/L Laboratory Results - last 24 hr 12/16/17 12/17/17 12/17/17 15:54 04:20 04:20 WBC 7.7 RBC 3.04 L Hgb 9.2 L Hct 28.7 L MCV 94.5 H MCH 30.1 MCHC 31.9 L RDW 17.4 H Plt Count 233 pCO2 43 pO2 150 H HCO3 35.8 H ABG pH 7.55 H ABG Total CO2 38.9 H ABG O2 Saturation 100.2 H ABG O2 Content ABG Base Excess 13.9 H ABG Hemoglobin ABG Carboxyhemoglobin POC ABG HHb (Measured) ABG Methemoglobin ABG O2 Capacity Broderick Test Yes ABG Potassium 4.5 A-a O2 Difference 153.0 Hgb O2 Saturation Sodium 145.0 147 Chloride 113.0 H 108 H Glucose 126 H Lactate 1.3 Vent Mode Cpap Mechanical Rate FiO2 50.0 Tidal Volume PEEP 5 Pressure Support 15 Potassium 4.1 Carbon Dioxide 34 H Anion Gap 9 L BUN 33 H Creatinine 0.9 Est GFR ( Amer) > 60 Est GFR (Non-Af Amer) > 60 Random Glucose 131 H Calcium 7.9 L Arterial Blood Potassium 4.5 12/17/17 12/17/17 05:17 12:09 WBC RBC Hgb Hct MCV MCH MCHC RDW Plt Count pCO2 43 49 H pO2 131 H 108 H HCO3 33.6 H 34.0 H ABG pH 7.52 H 7.48 H ABG Total CO2 36.4 H 38.0 H ABG O2 Saturation 100.5 H 100.2 H ABG O2 Content 13.4 L ABG Base Excess 11.1 H 11.6 H ABG Hemoglobin 9.5 L ABG Carboxyhemoglobin 1.3 POC ABG HHb (Measured) -0.5 L ABG Methemoglobin 1.0 ABG O2 Capacity 13.3 L Broderick Test Yes Yes ABG Potassium 4.2 A-a O2 Difference 100.0 116.0 Hgb O2 Saturation 98.2 H Sodium 144.0 Chloride 111.0 H Glucose 106 Lactate 1.0 Vent Mode Prvc ac Psv Mechanical Rate 12 FiO2 40.0 40.0 Tidal Volume 400 PEEP 5 5 Pressure Support 10 Potassium Carbon Dioxide Anion Gap BUN Creatinine Est GFR ( Amer) Est GFR (Non-Af Amer) Random Glucose Calcium Arterial Blood Potassium 4.2 Fingerstick Blood Sugar Results: 83 Assessment/Plan (1) Acute respiratory failure with hypoxia Current Visit: Yes Status: Acute Priority: High Comment: Acute hypercarbic and Hypoxemic respiratory failure secondary to likely aspiration pneumonia with pleural effusion in the setting of severe Respiratory muscle weakness Continue with ICU care for hemodynamic and Respiratory monitoring Vent weanig as tolerate Daily SAT/SBT IV Vancomycin and Cefapime S/P IV Vancomycin, Meropenem and Metronidazole PRN Diuresis with Aldactone 25 mg PO BID and IV lasix 40 mg daily Strict I&O, negative fluid balance Aggressive pulmonary toilet, chest PT, suctioning nebulizer treatment Maintain aspiration precautions GI/DVT PPX He was placed on PSV this morning with tapering PS Tolerating CPAP trial, adequate saturation but low TV ABG pn CPAP trial with PS 10, FIO2 of 40% 7.48/49/108/34/100 (2) CANDELARIA (acute kidney injury) Current Visit: Yes Status: Deleted Priority: High Comment: Improved renal function. BU/CR 45/1.3 down to 33/0.9 Off all nephrotoxic medications Renally adjust medication dose (3) Altered mental status Current Visit: Yes Status: Acute Priority: High Comment: More awake, interactive Toxic/metabolic encephalopathy, multifactorial in the sitting of Acute hypercarbic and Hypoxemic respiratory failure, pneumonia, uremia , sepsis (4) Pleural effusion, bilateral Current Visit: Yes Status: Acute Priority: High Comment: corrected coagulopathy 09/24, Underwent Left pig tail placement today with about 500 serious fluid drained 09/25, Underwent Right (8 fr) pig tail placement and Left CT removed 10/01, US guided placement of a right chest tube, 8 fr 10/14, US guided left thoracentesis. 10/30, Underwent 8 fr pigtail drainage catheter placement left chest. (5) A-fib Current Visit: No Status: Chronic Priority: High Comment: Continue Diltiazem HCl (Cardizem) 60 mg PO Q8 [facility] Continue Metoprolol Tartrate (Lopressor) 25 mg PO Q12 [facility] HR better Resumed AC with Eliquis (6) Pulmonary hypertension Current Visit: Yes Status: Acute Comment: Continue Revatio 20 mg PO BID (7) Seizure disorder Current Visit: No Status: Chronic Priority: Medium Comment: Continue LamoTRIgine [Lamictal] 150 mg BID
--- NOTE | 2017-12-17 13:09 | PCM.PROC ---
Procedures Attestation:: I certify that I have explained the specified Operation(s) or Procedure(s), risks, benefits and reasonable alternatives to the Patient and/or other person responsible. The opportunity was given to ask questions and all questions answered - Extubation RSBI Score: 75 Clinical Parameters: Resolution/Stabilization of disease process, Hemodynamically Stable, Intact Cough/Gag Reflex, Spontaneous Respirations, Acceptable Vent Settings (FIO2<50%, PEEP<8, PaO2>75, pH>7.25) Weaning Criteria Met: Yes General Weaning Approaches: Pressure Support Ventilation (PSV) Weaning Patient Condition: Patient has been successfully extubated and assessed Oxygen Therapy: High Flow Nasal Cannula Patient Tolerated Procedure: No Complications
--- NOTE | 2017-12-17 14:18 | CP.PCM.PN ---
Subjective - Date & Time of Evaluation Date of Evaluation: 12/17/17 Time of Evaluation: 13:00 - Subjective Subjective: F/U Respiratory Failure. Patient extubated at bedside , begin High Flow O2, awake , smiling Objective - Vital Signs/Intake and Output Vital Signs (last 24 hours): Temp Pulse Resp BP Pulse Ox 98.1 F 68 18 155/56 H 100 12/17/17 12:00 12/17/17 12:00 12/17/17 13:22 12/17/17 12:00 12/17/17 12:00 Intake and Output: 12/17/17 12/17/17 06:59 18:59 Intake Total 1100 500 Output Total 600 40 Balance 500 460 - Medications Medications: Current Medications Apixaban (Eliquis) 2.5 mg PO Q12 [facility] PRN Reason: Protocol Last Admin: 12/17/17 09:29 Dose: 2.5 mg Cholecalciferol (Vitamin D) 5,000 intlu PO DAILY [facility] Last Admin: 12/17/17 09:35 Dose: 5,000 intlu Digoxin (Lanoxin) 0.125 mg IVP DAILY [facility] Last Admin: 12/17/17 09:32 Dose: 0.125 mg Diltiazem HCl (Cardizem) 30 mg PO TID [facility] Cefepime HCl 1 gm/ Sodium (Chloride) 100 mls @ 100 mls/hr IVPB Q12 [facility] PRN Reason: Protocol Last Admin: 12/17/17 09:34 Dose: 100 mls/hr Vancomycin HCl 750 mg/ Sodium (Chloride) 250 mls @ 166.667 mls/hr IVPB Q48H [facility] PRN Reason: Protocol Last Admin: 12/16/17 08:35 Dose: 166.667 mls/hr Ipratropium [place] (Atrovent) 0.5 mg [facility] RQ4 PRN PRN Reason: Shortness of Breath Lamotrigine (Lamictal) 150 mg PO Q12@0930,2130 [facility] Last Admin: 12/17/17 09:31 Dose: 150 mg Levalbuterol HCl (Xopenex) 0.63 mg INH RQ4 PRN PRN Reason: Shortness of Breath Metoprolol Tartrate (Lopressor) 25 mg PO Q12 [facility] Last Admin: 12/17/17 09:33 Dose: 25 mg Pantoprazole Sodium (Protonix Ec Tab) 40 mg PO DAILY [facility] Last Admin: 12/17/17 09:35 Dose: 40 mg - Labs Labs: 12/17/17 04:20 12/17/17 04:20 PT 13.8 Seconds (9.8-13.1) H 12/14/17 07:10 INR 1.2 (0.9-1.2) 12/14/17 07:10 APTT 34.4 Seconds (25.6-37.1) 10/26/17 12:30 - Constitutional Appears: Chronically Ill - Head Exam Head Exam: NORMAL INSPECTION - Eye Exam Pupil Exam: PERRL - ENT Exam ENT Exam: Normal Exam Additional comments: high Flow O2 - Neck Exam Neck Exam: Normal Inspection - Respiratory Exam Respiratory Exam: Decreased Breath Sounds (at bases) - Cardiovascular Exam Cardiovascular Exam: Irregular Rhythm - GI/Abdominal Exam GI & Abdominal Exam: Soft - Extremities Exam Extremities Exam: Normal Inspection - Back Exam Additional comments: L-S lesions healing - Neurological Exam Neurological Exam: Awake Additional comments: no focal motor deficit , generalized weakness - Skin Skin Exam: Warm Assessment and Plan (1) Acute respiratory failure with hypoxia Status: Acute (2) Encephalopathy Status: Acute (3) Pleural effusion, bilateral Status: Resolved (4) Diastolic CHF, acute on chronic Status: Acute (5) Hx of seizure disorder Status: Chronic (6) A-fib Status: Chronic (7) CANDELARIA (acute kidney injury) Status: Resolved (8) Anemia Status: Chronic (9) Aortic valve vegetation Status: Acute (10) SUSAN (obstructive sleep apnea) Status: Chronic (11) Pulmonary hypertension Status: Chronic (12) Clostridium difficile infection Status: Acute - Assessment and Plan (Free Text) Plan: successfully extubated ,continue high flow O2 and current treatment ICU Time: 38 min.
[2017-12-17] MEDS ORDERED: Chlorhexidine Gluconate 1 APPL/PKT TP ONE (18:08)
--- NOTE | 2017-12-18 00:44 | CP.PCM.PN ---
Subjective - Date & Time of Evaluation Date of Evaluation: 12/17/17 Time of Evaluation: 11:00 - Subjective Subjective: more awake and responsive per patient develops diaphoresis post CCB administration Objective - Vital Signs/Intake and Output Vital Signs (last 24 hours): Temp Pulse Resp BP Pulse Ox 97.0 F L 75 20 140/72 100 12/17/17 16:00 12/17/17 20:55 12/18/17 00:32 12/17/17 20:55 12/17/17 20:55 Intake and Output: 12/17/17 12/18/17 18:59 06:59 Intake Total 860 Output Total 640 Balance 220 - Medications Medications: Current Medications Apixaban (Eliquis) 2.5 mg PO Q12 [facility] PRN Reason: Protocol Last Admin: 12/17/17 20:54 Dose: 2.5 mg Cholecalciferol (Vitamin D) 5,000 intlu PO DAILY [facility] Last Admin: 12/17/17 09:35 Dose: 5,000 intlu Digoxin (Lanoxin) 0.125 mg IVP DAILY [facility] Last Admin: 12/17/17 09:32 Dose: 0.125 mg Diltiazem HCl (Cardizem) 30 mg PO TID [facility] Last Admin: 12/17/17 20:55 Dose: 30 mg Cefepime HCl 1 gm/ Sodium (Chloride) 100 mls @ 100 mls/hr IVPB Q12 [facility] PRN Reason: Protocol Last Admin: 12/17/17 21:02 Dose: 100 mls/hr Vancomycin HCl 750 mg/ Sodium (Chloride) 250 mls @ 166.667 mls/hr IVPB Q48H [facility] PRN Reason: Protocol Last Admin: 12/16/17 08:35 Dose: 166.667 mls/hr Ipratropium [place] (Atrovent) 0.5 mg IH RQ4 PRN PRN Reason: Shortness of Breath Lamotrigine (Lamictal) 150 mg PO Q12@0930,2130 [facility] Last Admin: 12/17/17 20:54 Dose: 150 mg Levalbuterol HCl (Xopenex) 0.63 mg INH RQ4 PRN PRN Reason: Shortness of Breath Metoprolol Tartrate (Lopressor) 25 mg PO Q12 [facility] Last Admin: 12/17/17 20:54 Dose: 25 mg Pantoprazole Sodium (Protonix Ec Tab) 40 mg PO DAILY [facility] Last Admin: 12/17/17 09:35 Dose: 40 mg - Labs Labs: 12/17/17 04:20 12/17/17 04:20 PT 13.8 Seconds (9.8-13.1) H 12/14/17 07:10 INR 1.2 (0.9-1.2) 12/14/17 07:10 APTT 34.4 Seconds (25.6-37.1) 10/26/17 12:30 - Constitutional Appears: Well - Head Exam Head Exam: ATRAUMATIC, NORMAL INSPECTION, NORMOCEPHALIC - Eye Exam Eye Exam: EOMI, Normal appearance, PERRL Pupil Exam: NORMAL ACCOMODATION, PERRL - ENT Exam ENT Exam: Mucous Membranes Moist, Normal Exam - Neck Exam Neck Exam: Full ROM, Normal Inspection. absent: Lymphadenopathy - Respiratory Exam Respiratory Exam: Clear to Ausculation Bilateral, Rales, NORMAL BREATHING PATTERN - Cardiovascular Exam Cardiovascular Exam: Irregular Rhythm, +S1, +S2, Murmur - GI/Abdominal Exam GI & Abdominal Exam: Soft, Normal Bowel Sounds. absent: Tenderness - Extremities Exam Extremities Exam: Full ROM, Normal Capillary Refill, Normal Inspection. absent : Joint Swelling, Pedal Edema - Back Exam Back Exam: NORMAL INSPECTION - Neurological Exam Neurological Exam: Alert, Awake - Psychiatric Exam Psychiatric exam: Normal Affect, Normal Mood - Skin Skin Exam: Dry, Intact, Normal Color, Warm Assessment and Plan (1) A-fib Assessment & Plan: decrease cardizem to 30mg po q8 hours cont metoprolol cont digoxin cont eliquis Status: Chronic (2) Acute on chronic diastolic (congestive) heart failure Status: Chronic (3) Acute respiratory failure with hypoxia Status: Acute (4) Altered mental status Status: Acute (5) HTN (hypertension) Status: Chronic (6) Seizure disorder Status: Chronic (7) CANDELARIA (acute kidney injury) Status: Acute (8) Encephalopathy Status: Acute (9) Hypothermia Status: Acute (10) Pleural effusion, bilateral Status: Acute (11) Supratherapeutic international normalized ratio (INR) Status: Acute (12) Acute decompensated heart failure Status: Acute (13) Atrial fibrillation with RVR Status: Acute
--- NOTE | 2017-12-18 00:46 | CP.PCM.PN ---
Subjective - Date & Time of Evaluation Date of Evaluation: 12/16/17 Time of Evaluation: 15:00 - Subjective Subjective: still lethargic and drowsy Objective - Vital Signs/Intake and Output Vital Signs (last 24 hours): Temp Pulse Resp BP Pulse Ox 97.0 F L 75 20 140/72 100 12/17/17 16:00 12/17/17 20:55 12/18/17 00:32 12/17/17 20:55 12/17/17 20:55 Intake and Output: 12/17/17 12/18/17 18:59 06:59 Intake Total 860 Output Total 640 Balance 220 - Medications Medications: Current Medications Apixaban (Eliquis) 2.5 mg PO Q12 [facility] PRN Reason: Protocol Last Admin: 12/17/17 20:54 Dose: 2.5 mg Cholecalciferol (Vitamin D) 5,000 intlu PO DAILY [facility] Last Admin: 12/17/17 09:35 Dose: 5,000 intlu Digoxin (Lanoxin) 0.125 mg IVP DAILY [facility] Last Admin: 12/17/17 09:32 Dose: 0.125 mg Diltiazem HCl (Cardizem) 30 mg PO TID [facility] Last Admin: 12/17/17 20:55 Dose: 30 mg Cefepime HCl 1 gm/ Sodium (Chloride) 100 mls @ 100 mls/hr IVPB Q12 [facility] PRN Reason: Protocol Last Admin: 12/17/17 21:02 Dose: 100 mls/hr Vancomycin HCl 750 mg/ Sodium (Chloride) 250 mls @ 166.667 mls/hr IVPB Q48H [facility] PRN Reason: Protocol Last Admin: 12/16/17 08:35 Dose: 166.667 mls/hr Ipratropium [place] (Atrovent) 0.5 mg IH RQ4 PRN PRN Reason: Shortness of Breath Lamotrigine (Lamictal) 150 mg PO Q12@0930,2130 [facility] Last Admin: 12/17/17 20:54 Dose: 150 mg Levalbuterol HCl (Xopenex) 0.63 mg INH RQ4 PRN PRN Reason: Shortness of Breath Metoprolol Tartrate (Lopressor) 25 mg PO Q12 [facility] Last Admin: 12/17/17 20:54 Dose: 25 mg Pantoprazole Sodium (Protonix Ec Tab) 40 mg PO DAILY [facility] Last Admin: 12/17/17 09:35 Dose: 40 mg - Labs Labs: 12/17/17 04:20 12/17/17 04:20 PT 13.8 Seconds (9.8-13.1) H 12/14/17 07:10 INR 1.2 (0.9-1.2) 12/14/17 07:10 APTT 34.4 Seconds (25.6-37.1) 10/26/17 12:30 - Constitutional Appears: Toxic, Confused - Head Exam Head Exam: ATRAUMATIC, NORMAL INSPECTION, NORMOCEPHALIC - Eye Exam Eye Exam: EOMI, Normal appearance, PERRL Pupil Exam: NORMAL ACCOMODATION, PERRL - ENT Exam ENT Exam: Mucous Membranes Moist, Normal Exam - Neck Exam Neck Exam: Full ROM, Normal Inspection. absent: Lymphadenopathy - Respiratory Exam Respiratory Exam: Clear to Ausculation Bilateral, Rales, NORMAL BREATHING PATTERN - Cardiovascular Exam Cardiovascular Exam: Irregular Rhythm, +S1, +S2, Murmur - GI/Abdominal Exam GI & Abdominal Exam: Soft, Normal Bowel Sounds. absent: Tenderness - Extremities Exam Extremities Exam: Full ROM, Normal Capillary Refill, Normal Inspection. absent : Joint Swelling, Pedal Edema - Back Exam Back Exam: NORMAL INSPECTION - Neurological Exam Neurological Exam: Altered - Psychiatric Exam Psychiatric exam: Normal Affect, Normal Mood - Skin Skin Exam: Dry, Intact, Normal Color, Warm Assessment and Plan (1) A-fib Status: Chronic (2) Acute on chronic diastolic (congestive) heart failure Status: Chronic (3) Acute respiratory failure with hypoxia Status: Acute (4) Altered mental status Status: Acute (5) HTN (hypertension) Status: Chronic (6) Seizure disorder Status: Chronic (7) CANDELARIA (acute kidney injury) Status: Acute (8) Encephalopathy Status: Acute (9) Hypothermia Status: Acute (10) Pleural effusion, bilateral Status: Acute (11) Supratherapeutic international normalized ratio (INR) Status: Acute (12) Acute decompensated heart failure Status: Acute (13) Atrial fibrillation with RVR Status: Acute
[2017-12-18 05:24] LABS: HEMOGLOBIN 10.7 g/dL (12.0-18.0); MEAN CELL VOLUME 95.8 fl (80.0-94.0); MEAN CORPUSCULAR HEMOGLOBIN 30.2 pg (27.0-31.0); MEAN CORPUSCULAR HGB CONC 31.5 g/dL (33.0-37.0); RBC 3.53 Mil/uL (4.40-5.90); RED CELL DISTRIBUTION WIDTH 17.6 % (11.5-14.5)
[2017-12-18 05:55] LABS: BLOOD UREA NITROGEN 26 mg/dl (9-20); CALCIUM 8.6 mg/dL (8.4-10.2); GFR AFRICAN-AMERICAN > 60; GFR NON-AFRICAN AMERICAN > 60
[2017-12-18] MEDS: Cefepime 1 GM in Sodium Chloride 0.9% 100 ML IVPB SCH ×2 (08:44→20:51)
[2017-12-18] MEDS: Pantoprazole 40 mg EC Tab PO SCH (08:45)
--- NOTE | 2017-12-18 09:23 | CP.PCM.PN ---
<FrancineAbhi - Last Filed: 12/18/17 10:35> Objective - Vital Signs/Intake and Output Vital Signs (last 24 hours): Temp Pulse Resp BP Pulse Ox 97.9 F 67 16 145/89 100 12/18/17 08:00 12/18/17 08:41 12/18/17 08:00 12/18/17 08:41 12/18/17 08:00 Intake and Output: 12/18/17 12/18/17 06:59 18:59 Intake Total 680 80 Output Total 600 Balance 80 80 - Medications Medications: Current Medications Apixaban (Eliquis) 2.5 mg PO Q12 [facility] PRN Reason: Protocol Last Admin: 12/18/17 08:42 Dose: 2.5 mg Cholecalciferol (Vitamin D) 5,000 intlu PO DAILY [facility] Last Admin: 12/17/17 09:35 Dose: 5,000 intlu Digoxin (Lanoxin) 0.125 mg IVP DAILY [facility] Last Admin: 12/17/17 09:32 Dose: 0.125 mg Diltiazem HCl (Cardizem) 30 mg PO TID [facility] Last Admin: 12/18/17 08:41 Dose: 30 mg Cefepime HCl 1 gm/ Sodium (Chloride) 100 mls @ 100 mls/hr IVPB Q12 [facility] PRN Reason: Protocol Last Admin: 12/18/17 08:44 Dose: 100 mls/hr Vancomycin HCl 750 mg/ Sodium (Chloride) 250 mls @ 166.667 mls/hr IVPB Q48H [facility] PRN Reason: Protocol Last Admin: 12/16/17 08:35 Dose: 166.667 mls/hr Ipratropium [place] (Atrovent) 0.5 mg IH RQ4 PRN PRN Reason: Shortness of Breath Lamotrigine (Lamictal) 150 mg PO Q12@0930,2130 [facility] Last Admin: 12/18/17 08:43 Dose: 150 mg Levalbuterol HCl (Xopenex) 0.63 mg INH RQ4 PRN PRN Reason: Shortness of Breath Metoprolol Tartrate (Lopressor) 25 mg PO Q12 [facility] Last Admin: 12/17/17 20:54 Dose: 25 mg Pantoprazole Sodium (Protonix Ec Tab) 40 mg PO DAILY [facility] Last Admin: 12/18/17 08:45 Dose: 40 mg - Labs Labs: 12/18/17 04:15 12/18/17 04:15 PT 13.8 Seconds (9.8-13.1) H 12/14/17 07:10 INR 1.2 (0.9-1.2) 12/14/17 07:10 APTT 34.4 Seconds (25.6-37.1) 10/26/17 12:30 Assessment and Plan (1) Acute respiratory failure with hypoxia Status: Acute (2) Encephalopathy Status: Acute (3) Pleural effusion, bilateral Status: Acute (4) Diastolic CHF, acute on chronic Status: Acute (5) Hx of seizure disorder Status: Chronic (6) A-fib Status: Chronic (7) CANDELARIA (acute kidney injury) Status: Acute (8) Anemia Status: Chronic (9) Aortic valve vegetation Status: Acute (10) SUSAN (obstructive sleep apnea) Status: Chronic (11) Pulmonary hypertension Status: Chronic (12) Clostridium difficile infection Status: Acute - Assessment and Plan (Free Text) Plan: ICU Time: 36 min. <Varun Castro - Last Filed: 12/18/17 17:24> Subjective - Date & Time of Evaluation Date of Evaluation: 12/18/17 Time of Evaluation: 09:22 - Subjective Subjective: extubated , feeling well HR controlled Objective - Vital Signs/Intake and Output Vital Signs (last 24 hours): Temp Pulse Resp BP Pulse Ox 97.9 F 67 16 145/89 100 12/18/17 08:00 12/18/17 08:41 12/18/17 08:00 12/18/17 08:41 12/18/17 08:00 Intake and Output: 12/18/17 12/18/17 06:59 18:59 Intake Total 680 80 Output Total 600 Balance 80 80 - Medications Medications: Current Medications Apixaban (Eliquis) 2.5 mg PO Q12 [facility] PRN Reason: Protocol Last Admin: 12/18/17 08:42 Dose: 2.5 mg Cholecalciferol (Vitamin D) 5,000 intlu PO DAILY [facility] Last Admin: 12/17/17 09:35 Dose: 5,000 intlu Digoxin (Lanoxin) 0.125 mg IVP DAILY [facility] Last Admin: 12/17/17 09:32 Dose: 0.125 mg Diltiazem HCl (Cardizem) 30 mg PO TID [facility] Last Admin: 12/18/17 08:41 Dose: 30 mg Cefepime HCl 1 gm/ Sodium (Chloride) 100 mls @ 100 mls/hr IVPB Q12 [facility] PRN Reason: Protocol Last Admin: 12/18/17 08:44 Dose: 100 mls/hr Vancomycin HCl 750 mg/ Sodium (Chloride) 250 mls @ 166.667 mls/hr IVPB Q48H [facility] PRN Reason: Protocol Last Admin: 12/16/17 08:35 Dose: 166.667 mls/hr Ipratropium [place] (Atrovent) 0.5 mg IH RQ4 PRN PRN Reason: Shortness of Breath Lamotrigine (Lamictal) 150 mg PO Q12@0930,2130 [facility] Last Admin: 12/18/17 08:43 Dose: 150 mg Levalbuterol HCl (Xopenex) 0.63 mg INH RQ4 PRN PRN Reason: Shortness of Breath Metoprolol Tartrate (Lopressor) 25 mg PO Q12 [facility] Last Admin: 12/17/17 20:54 Dose: 25 mg Pantoprazole Sodium (Protonix Ec Tab) 40 mg PO DAILY [facility] Last Admin: 12/18/17 08:45 Dose: 40 mg - Labs Labs: 12/18/17 04:15 12/18/17 04:15 PT 13.8 Seconds (9.8-13.1) H 12/14/17 07:10 INR 1.2 (0.9-1.2) 12/14/17 07:10 APTT 34.4 Seconds (25.6-37.1) 10/26/17 12:30 - Constitutional Appears: Well - Head Exam Head Exam: ATRAUMATIC, NORMAL INSPECTION, NORMOCEPHALIC - Eye Exam Eye Exam: EOMI, Normal appearance, PERRL Pupil Exam: NORMAL ACCOMODATION, PERRL - ENT Exam ENT Exam: Mucous Membranes Moist, Normal Exam - Neck Exam Neck Exam: Full ROM, Normal Inspection. absent: Lymphadenopathy - Respiratory Exam Respiratory Exam: Clear to Ausculation Bilateral, NORMAL BREATHING PATTERN - Cardiovascular Exam Cardiovascular Exam: Irregular Rhythm, +S1, +S2, Murmur - GI/Abdominal Exam GI & Abdominal Exam: Soft, Normal Bowel Sounds. absent: Tenderness - Extremities Exam Extremities Exam: Full ROM, Normal Capillary Refill, Normal Inspection. absent : Joint Swelling, Pedal Edema - Back Exam Back Exam: NORMAL INSPECTION - Neurological Exam Neurological Exam: Alert, Awake - Psychiatric Exam Psychiatric exam: Flat Affect, Normal Mood - Skin Skin Exam: Dry, Intact, Normal Color, Warm Assessment and Plan (1) A-fib Status: Chronic (2) Acute on chronic diastolic (congestive) heart failure Status: Chronic (3) Acute respiratory failure with hypoxia Status: Acute (4) Altered mental status Status: Acute (5) HTN (hypertension) Status: Chronic (6) Seizure disorder Status: Chronic (7) CANDELARIA (acute kidney injury) Status: Acute (8) Encephalopathy Status: Acute (9) Hypothermia Status: Acute (10) Pleural effusion, bilateral Status: Acute (11) Supratherapeutic international normalized ratio (INR) Status: Acute (12) Acute decompensated heart failure Status: Acute (13) Atrial fibrillation with RVR Status: Acute
[2017-12-18] MEDS: Digoxin 500 mcg/2ml (0.5 mg/2ml) Inj IVP SCH (10:41)
--- NOTE | 2017-12-18 14:23 | CP.PCM.PN ---
Subjective - Date & Time of Evaluation Date of Evaluation: 12/18/17 Time of Evaluation: 09:00 - Subjective Subjective: improving Objective - Vital Signs/Intake and Output Vital Signs (last 24 hours): Temp Pulse Resp BP Pulse Ox 97.4 F L 64 6 L 162/79 H 100 12/18/17 12:00 12/18/17 12:00 12/18/17 12:00 12/18/17 12:00 12/18/17 12:00 Intake and Output: 12/18/17 12/18/17 06:59 18:59 Intake Total 680 610 Output Total 600 10 Balance 80 600 - Medications Medications: Current Medications Apixaban (Eliquis) 2.5 mg PO Q12 [facility] PRN Reason: Protocol Last Admin: 12/18/17 08:42 Dose: 2.5 mg Cholecalciferol (Vitamin D) 5,000 intlu PO DAILY [facility] Last Admin: 12/17/17 09:35 Dose: 5,000 intlu Digoxin (Lanoxin) 0.125 mg IVP DAILY [facility] Last Admin: 12/18/17 10:41 Dose: Not Given Diltiazem HCl (Cardizem) 30 mg PO TID [facility] Last Admin: 12/18/17 08:41 Dose: 30 mg Cefepime HCl 1 gm/ Sodium (Chloride) 100 mls @ 100 mls/hr IVPB Q12 [facility] PRN Reason: Protocol Last Admin: 12/18/17 08:44 Dose: 100 mls/hr Vancomycin HCl 750 mg/ Sodium (Chloride) 250 mls @ 166.667 mls/hr IVPB Q48H [facility] PRN Reason: Protocol Last Admin: 12/18/17 10:57 Dose: 166.667 mls/hr Ipratropium [place] (Atrovent) 0.5 mg I[facility] RQ4 PRN PRN Reason: Shortness of Breath Lamotrigine (Lamictal) 150 mg PO Q12@0930,2130 [facility] Last Admin: 12/18/17 08:43 Dose: 150 mg Levalbuterol HCl (Xopenex) 0.63 mg INH RQ4 PRN PRN Reason: Shortness of Breath Metoprolol Tartrate (Lopressor) 25 mg PO Q12 [facility] Last Admin: 12/18/17 11:14 Dose: 25 mg Pantoprazole Sodium (Protonix Ec Tab) 40 mg PO DAILY [facility] Last Admin: 12/18/17 08:45 Dose: 40 mg - Labs Labs: 12/18/17 04:15 12/18/17 04:15 PT 13.8 Seconds (9.8-13.1) H 12/14/17 07:10 INR 1.2 (0.9-1.2) 12/14/17 07:10 APTT 34.4 Seconds (25.6-37.1) 10/26/17 12:30 - Constitutional Appears: Non-toxic, Chronically Ill - Head Exam Head Exam: NORMOCEPHALIC - Eye Exam Eye Exam: PERRL - ENT Exam ENT Exam: Mucous Membranes Dry - Neck Exam Neck Exam: absent: Lymphadenopathy - Respiratory Exam Respiratory Exam: Decreased Breath Sounds - Cardiovascular Exam Cardiovascular Exam: REGULAR RHYTHM - GI/Abdominal Exam GI & Abdominal Exam: Distended, Soft - Rectal Exam Rectal Exam: Deferred - Exam Exam: NORMAL INSPECTION Assessment and Plan (1) CANDELARIA (acute kidney injury) Status: Acute (2) Acute respiratory failure Status: Acute (3) Altered mental status Status: Acute (4) Diastolic CHF, acute on chronic Status: Acute (5) Pleural effusion, bilateral Status: Acute (6) Pneumonia Status: Resolved (7) Aortic valve vegetation Status: Acute
--- NOTE | 2017-12-18 16:37 | CP.PCM.PN ---
Subjective - Date & Time of Evaluation Date of Evaluation: 12/18/17 Time of Evaluation: 10:40 - Subjective Subjective: F/U Respiratory Failure Extubated yesterday , on High flow O2 , awake , smiling , answer simple questions , Patient,s at bedside. Objective - Vital Signs/Intake and Output Vital Signs (last 24 hours): Temp Pulse Resp BP Pulse Ox 97.4 F L 90 20 169/83 H 100 12/18/17 16:00 12/18/17 16:00 12/18/17 16:00 12/18/17 16:00 12/18/17 16:00 Intake and Output: 12/18/17 12/18/17 06:59 18:59 Intake Total 680 960 Output Total 600 10 Balance 80 950 - Medications Medications: Current Medications Apixaban (Eliquis) 2.5 mg PO Q12 [facility] PRN Reason: Protocol Last Admin: 12/18/17 08:42 Dose: 2.5 mg Cholecalciferol (Vitamin D) 5,000 intlu PO DAILY [facility] Last Admin: 12/17/17 09:35 Dose: 5,000 intlu Digoxin (Lanoxin) 0.125 mg IVP DAILY [facility] Last Admin: 12/18/17 10:41 Dose: Not Given Diltiazem HCl (Cardizem) 30 mg PO TID [facility] Last Admin: 12/18/17 13:00 Dose: Not Given Cefepime HCl 1 gm/ Sodium (Chloride) 100 mls @ 100 mls/hr IVPB Q12 [facility] PRN Reason: Protocol Last Admin: 12/18/17 08:44 Dose: 100 mls/hr Vancomycin HCl 750 mg/ Sodium (Chloride) 250 mls @ 166.667 mls/hr IVPB Q48H [facility] PRN Reason: Protocol Last Admin: 12/18/17 10:57 Dose: 166.667 mls/hr Ipratropium [place] (Atrovent) 0.5 mg [facility] RQ4 PRN PRN Reason: Shortness of Breath Lamotrigine (Lamictal) 150 mg PO Q12@0930,2130 [facility] Last Admin: 12/18/17 08:43 Dose: 150 mg Levalbuterol HCl (Xopenex) 0.63 mg IN[facility] RQ4 PRN PRN Reason: Shortness of Breath Metoprolol Tartrate (Lopressor) 25 mg PO Q12 [facility] Last Admin: 12/18/17 11:14 Dose: 25 mg Pantoprazole Sodium (Protonix Ec Tab) 40 mg PO DAILY [facility] Last Admin: 12/18/17 08:45 Dose: 40 mg - Labs Labs: 12/18/17 04:15 12/18/17 04:15 PT 13.8 Seconds (9.8-13.1) H 12/14/17 07:10 INR 1.2 (0.9-1.2) 12/14/17 07:10 APTT 34.4 Seconds (25.6-37.1) 10/26/17 12:30 - Constitutional Appears: No Acute Distress, Chronically Ill - Eye Exam Eye Exam: Normal appearance - ENT Exam ENT Exam: Normal Exam - Neck Exam Neck Exam: Normal Inspection - Respiratory Exam Respiratory Exam: Decreased Breath Sounds (at bases) Additional comments: On high flow O2. - Cardiovascular Exam Cardiovascular Exam: Irregular Rhythm - GI/Abdominal Exam GI & Abdominal Exam: Soft, Normal Bowel Sounds - Extremities Exam Extremities Exam: Normal Inspection - Back Exam Additional comments: L-S lesion healing - Neurological Exam Neurological Exam: Awake Additional comments: No focal motor deficit, generalized weakness. - Skin Skin Exam: Warm Assessment and Plan (1) Acute respiratory failure with hypoxia Status: Acute (2) Encephalopathy Status: Acute (3) Pleural effusion, bilateral Assessment & Plan: Stable on High flow O2, continue current treatment and PT Status: Resolved (4) Diastolic CHF, acute on chronic Status: Acute (5) Hx of seizure disorder Status: Chronic (6) A-fib Status: Chronic (7) CANDELARIA (acute kidney injury) Status: Resolved (8) Anemia Status: Chronic (9) Aortic valve vegetation Status: Acute (10) SUSAN (obstructive sleep apnea) Status: Chronic (11) Pulmonary hypertension Status: Chronic (12) Clostridium difficile infection Status: Acute - Assessment and Plan (Free Text) Plan: ICU Time: 40 min.
[2017-12-18] MEDS: Cholecalciferol 1,000 INTLU TAB PO SCH (17:38)
--- NOTE | 2017-12-18 17:52 | CP.CCUPN ---
CCU Subjective - Physician Review Subjective (Free Text): Awake and responds with facial expressions to verbal commands, limited upper extremity movement, withdraws arms to pain stimuli. On HFNC 40 LPM at 40 % oxygen. SPO2 100%. Limited tolerance to attempts at Physical therapy noted. As per , she denies for him any new focal deficits or weakness, no new tremors or twitches, denies any drooling nor excessive secretions of suctioning of nares or mouth. ROS: No other pertinent negs or positives on 10+ system review. PMSFH: All other Nursing and physician documentation reviewed to date; no new pertinent info noted relevant to current medical problems. CXR: (my interp)- yesterdays film reviewed. No films from today: mild basilar haziness on R, left costophrenic angle blunted. IMPRESSION / MAJOR PROBLEMS NOW: 1. Acute Resp ( Hypoxemic) failure 2 bilat effusions, and compressive atelectasis 2. Encephalopathy: etiology unclear, ?? metabolic vs cryptogenic seizures vs ?? CVA?? 3. Chronic A Fib, presently with controlled VR 4. r/o Cardiomyopathy vs Diastolic Dysfx CHF- non-invasive TTE shows preserved EF. 5. Azotemia, CKD III ( Bun/Cr was 36/1.5 at the time of last hospital discharge) 6. Warfarin induced-coagulopathy on admission PLAN: 1. Extreme deconditioning noted without any expected improvement in strength or mobility OOB, nor ambulation expected. Physical therapists attempts at bedside PT and PROM noted. Tolerance limited by poor, intermittent inability to interact and follow commands as well as poor functional pulmonary capacity. 2. Advised to continue with enteral tube feeds, and not test tolerance to PO feeds since he is at high risk of aspiration and poor expectation of patient to achieve caloric goals with PO feedings. 3. Attempts at compensating for cardiomyopathy as per Cardiology. 4. Continuation of other supportive care. CCU Objective - Vital Signs / Intake & Output Vital Signs (Last 4 hours): Vital Signs Temp Pulse Resp BP Pulse Ox 12/18/17 16:00 97.4 F L 90 20 169/83 H 100 12/18/17 14:00 62 16 160/86 H 100 Intake and Output (Last 8hrs): Intake & Output 12/18/17 12/18/17 12/18/17 06:59 14:59 22:59 Intake Total 400 960 100 Output Total 600 10 Balance -200 950 100 Intake: IV 80 Intake, Piggyback 350 Tube Feeding 400 280 100 Free Water Flush 250 Output: Gastric Amount 10 Stomach 10 Urine 600 Urethral (Wang) 600 Other: # Bowel Movements 1 - Physical Exam Head: Positive for: Atraumatic, Normocephalic, Other (NG tube) Pupils: Positive for: PERRL, Sluggish Extroacular Muscles: Positive for: EOMI Conjunctiva: Positive for: Normal. Negative for: Icteric Ears: Positive for: Normal Mouth: Positive for: Moist Mucous Membranes Pharnyx: Negative for: ERYTHEMA Neck: Positive for: Normal Range of Motion. Negative for: JVD Respiratory/Chest: Positive for: Good Air Exchange, Respiratory Distress, Decreased Breath Sounds, Rhonchi (upper airway rhonchi), Tachypneic. Negative for: Accessory Muscle Use, Wheezes Cardiovascular: Positive for: Murmurs, Irregular Rhythm, Peripheal Pulses Present, Tachycardic. Negative for: Normal S1, S2, Rub Abdomen: Positive for: Normal Bowel Sounds. Negative for: Tenderness, Distention, Peritoneal Signs Upper Extremity: Positive for: Edema Lower Extremity: Positive for: Edema, NORMAL PULSES. Negative for: CALF TENDERNESS, Cyanosis Neurological: Positive for: Other (withdraws to deep pain) Skin: Positive for: Warm, Dry. Negative for: Rashes Psychiatric: Positive for: Alert, Lethargic (mental status waxwes and wanes). Negative for: Oriented x 3, Anxious, Agitated - Medications Active Medications: Active Medications Generic Name Dose Route Start Last Admin Trade Name Billyq PRN Reason Stop Dose Admin Apixaban 2.5 mg 12/15/17 21:00 12/18/17 08:42 Eliquis PO 2.5 mg Q12 YUKI Administration Protocol Cholecalciferol 5,000 intlu 12/15/17 09:00 12/17/17 09:35 Vitamin D PO 5,000 intlu DAILY YUKI Administration Digoxin 0.125 mg 12/15/17 09:00 12/18/17 10:41 Lanoxin IVP Not Given DAILY YUKI Diltiazem HCl 30 mg 12/17/17 17:00 12/18/17 13:00 Cardizem PO Not Given TID YUKI Cefepime HCl 1 gm/ Sodium 100 mls @ 100 mls/hr 12/15/17 09:00 12/18/17 08:44 Chloride IVPB 100 mls/hr Q12 YUKI Administration Protocol Vancomycin HCl 750 mg/ Sodium 250 mls @ 166.667 mls/hr 12/16/17 09:00 10:57 Chloride IVPB 166.667 mls/hr Q48H YUKI Administration Protocol Ipratropium [place] 0.5 mg 12/15/17 01:08 Atrovent IH RQ4 PRN Shortness of Breath Lamotrigine 150 mg 12/15/17 09:30 12/18/17 08:43 Lamictal PO 150 mg Q12@0930,2130 YUKI Administration Levalbuterol HCl 0.63 mg 12/15/17 01:08 Xopenex INH RQ4 PRN Shortness of Breath Metoprolol Tartrate 25 mg 12/15/17 09:00 12/18/17 11:14 Lopressor PO 25 mg Q12 YUKI Administration Pantoprazole Sodium 40 mg 12/15/17 09:00 12/18/17 08:45 Protonix Ec Tab PO 40 mg DAILY YUKI Administration - Patient Studies Lab Studies: Microbiology Studies 12/15/17 06:11 Gram Stain - Final Trachasp Sputum Culture - Final NORMAL ORAL OTONIEL Lab Studies 12/18/17 12/18/17 Range/Units 04:15 04:15 WBC 7.0 (4.8-10.8) K/uL RBC 3.53 L (4.40-5.90) Mil/uL Hgb 10.7 L (12.0-18.0) g/dL Hct 33.9 L (35.0-51.0) % MCV 95.8 H (80.0-94.0) fl MCH 30.2 (27.0-31.0) pg MCHC 31.5 L (33.0-37.0) g/dL RDW 17.6 H (11.5-14.5) % Plt Count 250 (130-400) K/uL Sodium 146 (132-148) mmol/l Potassium 4.4 (3.6-5.0) MMOL/L Chloride 106 (98-107) mmol/L Carbon Dioxide 33 H (22-30) mmol/L Anion Gap 11 (10-20) BUN 26 H (9-20) mg/dl Creatinine 0.8 (0.8-1.5) mg/dl Est GFR ( Amer) > 60 Est GFR (Non-Af Amer) > 60 Random Glucose 111 H (75-110) mg/dL Calcium 8.6 (8.4-10.2) mg/dL Laboratory Results - last 24 hr 12/18/17 12/18/17 04:15 04:15 WBC 7.0 RBC 3.53 L Hgb 10.7 L Hct 33.9 L MCV 95.8 H MCH 30.2 MCHC 31.5 L RDW 17.6 H Plt Count 250 Sodium 146 Potassium 4.4 Chloride 106 Carbon Dioxide 33 H Anion Gap 11 BUN 26 H Creatinine 0.8 Est GFR ( Amer) > 60 Est GFR (Non-Af Amer) > 60 Random Glucose 111 H Calcium 8.6 Fingerstick Blood Sugar Results: 83 Review of Systems - Review of Systems All systems: reviewed and no additional remarkable complaints except (as above)
[2017-12-18] MEDS ORDERED: Chlorhexidine Gluconate 1 APPL/PKT TP ONE (23:53)
[2017-12-19 05:55] LABS: HEMOGLOBIN 9.6 g/dL (12.0-18.0); MEAN CELL VOLUME 94.2 fl (80.0-94.0); MEAN CORPUSCULAR HGB CONC 31.8 g/dL (33.0-37.0); RBC 3.21 Mil/uL (4.40-5.90); RED CELL DISTRIBUTION WIDTH 17.1 % (11.5-14.5); WHITE BLOOD COUNT 7.9 K/uL (4.8-10.8)
[2017-12-19 07:29] LABS: BLOOD UREA NITROGEN 21 mg/dl (9-20); CALCIUM 8.7 mg/dL (8.4-10.2); GFR AFRICAN-AMERICAN > 60; GFR NON-AFRICAN AMERICAN > 60
[2017-12-19 08:01] LABS: ABG ALLEN TEST YES; ARTERIAL BLOOD GAS HCO3 32.7 mmol/L (21-28); ARTERIAL BLOOD GAS HEMOGLOBIN 10.2 g/dL (11.7-17.4); ARTERIAL BLOOD GAS O2 CAPACITY 14.2 mL/dL (16-24); ARTERIAL BLOOD GAS O2 CONTENT 14.2 ML/dL (15-23); ARTERIAL BLOOD GAS O2 SAT 100.1 % (95-98); ARTERIAL BLOOD GAS PCO2 51 mm/Hg (35-45); ARTERIAL BLOOD GAS PH 7.45 (7.35-7.45); ARTERIAL BLOOD GAS PO2 117 mm/Hg (80-100)
[2017-12-19] MEDS: Digoxin 500 mcg/2ml (0.5 mg/2ml) Inj IVP SCH (09:01)
[2017-12-19] MEDS: Cefepime 1 GM in Sodium Chloride 0.9% 100 ML IVPB SCH ×2 (09:04→21:35)
[2017-12-19] MEDS: Cholecalciferol 1,000 INTLU TAB PO SCH (09:30)
[2017-12-19] MEDS: Pantoprazole 40 mg EC Tab PO SCH (09:31)
--- NOTE | 2017-12-19 15:19 | CP.PCM.PN ---
Subjective - Date & Time of Evaluation Date of Evaluation: 12/19/17 Time of Evaluation: 13:00 - Subjective Subjective: F/U respiratory failure awake , smiling , able to talk with short words , follows commands, Patient, s at bedside Objective - Vital Signs/Intake and Output Vital Signs (last 24 hours): Temp Pulse Resp BP Pulse Ox 98.2 F 61 24 150/73 100 12/19/17 12:00 12/19/17 12:00 12/19/17 12:26 12/19/17 12:00 12/19/17 12:00 Intake and Output: 12/19/17 12/19/17 06:59 18:59 Intake Total 500 600 Output Total 50 Balance 500 550 - Medications Medications: Current Medications Apixaban (Eliquis) 2.5 mg PO Q12 [facility] PRN Reason: Protocol Last Admin: 12/19/17 09:02 Dose: 2.5 mg Cholecalciferol (Vitamin D) 5,000 intlu PO DAILY [facility] Last Admin: 12/19/17 09:30 Dose: 5,000 intlu Digoxin (Lanoxin) 0.125 mg IVP DAILY [facility] [place] Last Admin: 12/19/17 09:01 Dose: 0.125 mg Diltiazem HCl (Cardizem) 30 mg PO TID [facility] Last Admin: 12/19/17 09:02 Dose: 30 mg Cefepime HCl 1 gm/ Sodium (Chloride) 100 mls @ 100 mls/hr IVPB Q12 [facility] PRN Reason: Protocol Last Admin: 12/19/17 09:04 Dose: 100 mls/hr Vancomycin HCl 750 mg/ Sodium (Chloride) 250 mls @ 166.667 mls/hr IVPB Q48H [facility] [place] PRN Reason: Protocol Last Admin: 12/18/17 10:57 Dose: 166.667 mls/hr Ipratropium [place] (Atrovent) 0.5 mg IH RQ4 PRN PRN Reason: Shortness of Breath Lamotrigine (Lamictal) 150 mg PO Q12@0930,2130 [facility] [place] Last Admin: 12/19/17 09:32 Dose: 150 mg Levalbuterol HCl (Xopenex) 0.63 mg INH RQ4 PRN PRN Reason: Shortness of Breath Metoprolol Tartrate (Lopressor) 25 mg PO Q12 [facility] [place] Last Admin: 12/19/17 09:00 Dose: 25 mg Pantoprazole Sodium (Protonix Ec Tab) 40 mg PO DAILY [facility] Last Admin: 12/19/17 09:31 Dose: 40 mg - Labs Labs: 12/19/17 05:18 12/19/17 05:18 PT 13.8 Seconds (9.8-13.1) H 12/14/17 07:10 INR 1.2 (0.9-1.2) 12/14/17 07:10 APTT 34.4 Seconds (25.6-37.1) 10/26/17 12:30 - Constitutional Appears: Chronically Ill - Head Exam Head Exam: NORMAL INSPECTION - Eye Exam Eye Exam: PERRL - ENT Exam ENT Exam: Normal Exam Additional comments: High flow O2 , NG tube - Neck Exam Neck Exam: Normal Inspection - Respiratory Exam Respiratory Exam: Decreased Breath Sounds (at bases) - Cardiovascular Exam Cardiovascular Exam: Irregular Rhythm - GI/Abdominal Exam GI & Abdominal Exam: Soft, Normal Bowel Sounds - Extremities Exam Extremities Exam: Normal Inspection - Back Exam Back Exam: NORMAL INSPECTION (L-S lesions healin) - Neurological Exam Neurological Exam: Awake Additional comments: follows commands , generalized weakness. - Skin Skin Exam: Warm Assessment and Plan (1) Acute respiratory failure with hypoxia Status: Acute (2) Encephalopathy Status: Acute (3) Pleural effusion, bilateral Status: Resolved (4) Diastolic CHF, acute on chronic Status: Acute (5) Hx of seizure disorder Status: Chronic (6) A-fib Status: Chronic (7) CANDELARIA (acute kidney injury) Status: Resolved (8) Anemia Status: Chronic (9) Aortic valve vegetation Status: Acute (10) SUSAN (obstructive sleep apnea) Status: Chronic (11) Pulmonary hypertension Status: Chronic (12) Clostridium difficile infection Status: Acute - Assessment and Plan (Free Text) Plan: continue Cefepime, Vanco , DuoNeb, Xopenex , Cardizem , Lopressor , Eliquis , Lanoxin , Lamictal , Protonix , PT ICU Time: 36 min.
--- NOTE | 2017-12-19 15:52 | CP.CCUPN ---
CCU Subjective - Physician Review Subjective (Free Text): Awake and responds with 1-2 word phrases to verbal commands, aware enough to have pulled out NGT 3 times over the past 24H. On HFNC 40 LPM at 40 % oxygen. SPO2 100%. Remains on continuous tube feeds. Limited tolerance to attempts at Physical therapy noted. As per , she denies for him any new focal deficits or weakness, no new tremors or twitches, denies any drooling nor excessive secretions of suctioning of nares or mouth. ROS: No other pertinent negs or positives on 10+ system review. PMSFH: All other Nursing and physician documentation reviewed to date; no new pertinent info noted relevant to current medical problems. IMPRESSION / MAJOR PROBLEMS NOW: 1. Acute Resp ( Hypoxemic) failure 2 bilat effusions, and compressive atelectasis 2. Encephalopathy: etiology may be multifactorial: metabolic vs cryptogenic seizures vs ?? CVA?? 3. Chronic A Fib, presently with controlled VR 4. Cardiomyopathy vs Diastolic Dysfx CHF- non-invasive TTE shows preserved EF. 5. Azotemia, CKD III ( Bun/Cr was 36/1.5 at the time of last hospital discharge) 6. Warfarin induced-coagulopathy on admission PLAN: 1. Resp status and wakefulness appears inatc even with mild hypercarbia in the 50s. 2. Extreme deconditioning noted without any expected improvement in strength or mobility OOB, nor ambulation expected. Physical therapists attempts at bedside PT and PROM noted. Tolerance limited by poor, intermittent inability to interact and follow commands as well as poor functional pulmonary capacity. 3. Advised to continue with enteral tube feeds, and not test tolerance to PO feeds since he is at high risk of aspiration and poor expectation of patient to achieve caloric goals with PO feedings. Could try discussing with again regarding PEG placement an PO Pleasure feeds. 4. Continuation of other supportive care. Stable for transfer back to Telemetry bed if no need for assisted breathing. CCU Objective - Vital Signs / Intake & Output Vital Signs (Last 4 hours): Vital Signs Temp Pulse Resp BP Pulse Ox 12/19/17 12:26 24 12/19/17 12:00 98.2 F 61 22 150/73 100 Intake and Output (Last 8hrs): Intake & Output 12/19/17 12/19/17 12/19/17 06:59 14:59 22:59 Intake Total 400 600 Output Total 50 Balance 400 550 Intake: Intake, Piggyback 100 Tube Feeding 400 300 Free Water Flush 200 Output: Gastric Amount 50 Stomach 50 Other: # Bowel Movements 1 1 - Physical Exam Head: Positive for: Atraumatic, Normocephalic, Other (NG tube) Pupils: Positive for: PERRL, Sluggish Extroacular Muscles: Positive for: EOMI Conjunctiva: Positive for: Normal. Negative for: Icteric Ears: Positive for: Normal Mouth: Positive for: Moist Mucous Membranes Pharnyx: Negative for: ERYTHEMA Neck: Positive for: Normal Range of Motion. Negative for: JVD Respiratory/Chest: Positive for: Good Air Exchange, Respiratory Distress, Decreased Breath Sounds, Rhonchi (upper airway rhonchi), Tachypneic. Negative for: Accessory Muscle Use, Wheezes Cardiovascular: Positive for: Murmurs, Irregular Rhythm, Peripheal Pulses Present, Tachycardic. Negative for: Normal S1, S2, Rub Abdomen: Positive for: Normal Bowel Sounds. Negative for: Tenderness, Distention, Peritoneal Signs Upper Extremity: Positive for: Edema Lower Extremity: Positive for: Edema, NORMAL PULSES. Negative for: CALF TENDERNESS, Cyanosis Neurological: Positive for: Other (withdraws to deep pain) Skin: Positive for: Warm, Dry. Negative for: Rashes Psychiatric: Positive for: Alert, Lethargic (mental status waxwes and wanes). Negative for: Oriented x 3, Anxious, Agitated - Medications Active Medications: Active Medications Generic Name Dose Route Start Last Admin Trade Name Freq PRN Reason Stop Dose Admin Apixaban 2.5 mg 12/15/17 21:00 12/19/17 09:02 Eliquis PO 2.5 mg Q12 YUKI Administration Protocol Cholecalciferol 5,000 intlu 12/15/17 09:00 12/19/17 09:30 Vitamin D PO 5,000 intlu DAILY YUKI Administration Digoxin 0.125 mg 12/15/17 09:00 12/19/17 09:01 Lanoxin IVP 0.125 mg DAILY YUKI Administration Diltiazem HCl 30 mg 12/17/17 17:00 12/19/17 09:02 Cardizem PO 30 mg TID YUKI Administration Cefepime HCl 1 gm/ Sodium 100 mls @ 100 mls/hr 12/15/17 09:00 12/19/17 09:04 Chloride IVPB 100 mls/hr Q12 YUKI Administration Protocol Vancomycin HCl 750 mg/ Sodium 250 mls @ 166.667 mls/hr 12/16/17 09:00 10:57 Chloride IVPB 166.667 mls/hr Q48H YUKI Administration Protocol Ipratropium [place] 0.5 mg 12/15/17 01:08 Atrovent IH RQ4 PRN Shortness of Breath Lamotrigine 150 mg 12/15/17 09:30 12/19/17 09:32 Lamictal PO 150 mg Q12@0930,2130 YUKI Administration Levalbuterol HCl 0.63 mg 12/15/17 01:08 Xopenex INH RQ4 PRN Shortness of Breath Metoprolol Tartrate 25 mg 12/15/17 09:00 12/19/17 09:00 Lopressor PO 25 mg Q12 YUKI Administration Pantoprazole Sodium 40 mg 12/15/17 09:00 12/19/17 09:31 Protonix Ec Tab PO 40 mg DAILY YUKI Administration - Patient Studies Lab Studies: Microbiology Studies 12/15/17 06:11 Gram Stain - Final Trachasp Sputum Culture - Final NORMAL ORAL OTONIEL Lab Studies 12/19/17 12/19/17 12/19/17 Range/Units 05:51 05:18 05:18 WBC 7.9 (4.8-10.8) K/uL RBC 3.21 L (4.40-5.90) Mil/uL Hgb 9.6 L (12.0-18.0) g/dL Hct 30.3 L (35.0-51.0) % MCV 94.2 H (80.0-94.0) fl MCH 30.0 (27.0-31.0) pg MCHC 31.8 L (33.0-37.0) g/dL RDW 17.1 H (11.5-14.5) % Plt Count 253 (130-400) K/uL pCO2 51 H (35-45) mm/Hg pO2 117 H (80-100) mm/Hg HCO3 32.7 H (21-28) mmol/L ABG pH 7.45 (7.35-7.45) ABG Total CO2 37.0 H (22-28) mmol/L ABG O2 Saturation 100.1 H (95-98) % ABG O2 Content 14.2 L (15-23) ML/dL ABG Base Excess 10.0 H (-2.0-3.0) mmol/L ABG Hemoglobin 10.2 L (11.7-17.4) g/dL ABG Carboxyhemoglobin 1.5 (0.5-1.5) % POC ABG HHb (Measured) -0.1 L (0.0-5.0) % ABG Methemoglobin 1.4 (0.0-3.0) % ABG O2 Capacity 14.2 L (16-24) mL/dL Broderick Test Yes A-a O2 Difference 104.0 mm/Hg Hgb O2 Saturation 97.3 (95.0-98.0) % Liter Flow 40 FiO2 40.0 % Sodium 145 (132-148) mmol/l Potassium 4.3 (3.6-5.0) MMOL/L Chloride 105 (98-107) mmol/L Carbon Dioxide 34 H (22-30) mmol/L Anion Gap 10 (10-20) BUN 21 H (9-20) mg/dl Creatinine 0.8 (0.8-1.5) mg/dl Est GFR ( Amer) > 60 Est GFR (Non-Af Amer) > 60 Random Glucose 114 H (75-110) mg/dL Calcium 8.7 (8.4-10.2) mg/dL Laboratory Results - last 24 hr 12/19/17 12/19/17 12/19/17 05:18 05:18 05:51 WBC 7.9 RBC 3.21 L Hgb 9.6 L Hct 30.3 L MCV 94.2 H MCH 30.0 MCHC 31.8 L RDW 17.1 H Plt Count 253 pCO2 51 H pO2 117 H HCO3 32.7 H ABG pH 7.45 ABG Total CO2 37.0 H ABG O2 Saturation 100.1 H ABG O2 Content 14.2 L ABG Base Excess 10.0 H ABG Hemoglobin 10.2 L ABG Carboxyhemoglobin 1.5 POC ABG HHb (Measured) -0.1 L ABG Methemoglobin 1.4 ABG O2 Capacity 14.2 L Broderick Test Yes A-a O2 Difference 104.0 Hgb O2 Saturation 97.3 Liter Flow 40 FiO2 40.0 Sodium 145 Potassium 4.3 Chloride 105 Carbon Dioxide 34 H Anion Gap 10 BUN 21 H Creatinine 0.8 Est GFR ( Amer) > 60 Est GFR (Non-Af Amer) > 60 Random Glucose 114 H Calcium 8.7 Fingerstick Blood Sugar Results: 83 Review of Systems - Review of Systems Systems not reviewed;Unavailable: Altered Mental Status (as above) All systems: reviewed and no additional remarkable complaints except
[2017-12-19] MEDS ORDERED: Chlorhexidine Gluconate 1 APPL/PKT TP ONE (16:29)
--- NOTE | 2017-12-20 01:25 | CP.PCM.PN ---
Subjective - Date & Time of Evaluation Date of Evaluation: 12/19/17 Time of Evaluation: 23:00 - Subjective Subjective: Extubated successfully on high flow, VS are adequate, answer question in one to 2 words, is regaining back his mental abilities as before intubation. His ability to move his extremities is regained, but he is reported to move the right side side less. He pulled his NG tube once today. He is on Puree and thickened liquids in a minimal allowed quantities for his safety. She is still opposed to placing a GTube. Will get CT Brain to R/O CVA and EEG to assess for Encephalopathy and for his seizures response to Lamictal. Objective - Vital Signs/Intake and Output Vital Signs (last 24 hours): Temp Pulse Resp BP Pulse Ox 98.1 F 76 26 H 151/76 H 100 12/20/17 00:00 12/20/17 00:00 12/20/17 00:41 12/20/17 00:00 12/20/17 00:00 Intake and Output: 12/19/17 12/20/17 18:59 06:59 Intake Total 830 700 Output Total 650 Balance 180 700 - Medications Medications: Current Medications Apixaban (Eliquis) 2.5 mg PO Q12 YUKI PRN Reason: Protocol Last Admin: 12/19/17 21:34 Dose: 2.5 mg Cholecalciferol (Vitamin D) 5,000 intlu PO DAILY [facility] Last Admin: 12/19/17 09:30 Dose: 5,000 intlu Digoxin (Lanoxin) 0.125 mg IVP DAILY [facility] Last Admin: 12/19/17 09:01 Dose: 0.125 mg Diltiazem HCl (Cardizem) 30 mg PO TID [facility] Last Admin: 12/19/17 17:03 Dose: 30 mg Cefepime HCl 1 gm/ Sodium (Chloride) 100 mls @ 100 mls/hr IVPB Q12 [facility]I PRN Reason: Protocol Last Admin: 12/19/17 21:35 Dose: 100 mls/hr Vancomycin HCl 750 mg/ Sodium (Chloride) 250 mls @ 166.667 mls/hr IVPB Q48H YUKI PRN Reason: Protocol Last Admin: 12/18/17 10:57 Dose: 166.667 mls/hr Ipratropium [place] (Atrovent) 0.5 mg IH RQ4 PRN PRN Reason: Shortness of Breath Lamotrigine (Lamictal) 150 mg PO Q12@0930,2130 [facility] Last Admin: 12/19/17 21:34 Dose: 150 mg Levalbuterol HCl (Xopenex) 0.63 mg INH RQ4 PRN PRN Reason: Shortness of Breath Metoprolol Tartrate (Lopressor) 25 mg PO Q12 [facility] Last Admin: 12/19/17 21:34 Dose: 25 mg Pantoprazole Sodium (Protonix Ec Tab) 40 mg PO DAILY [facility] Last Admin: 12/19/17 09:31 Dose: 40 mg - Labs Labs: 12/19/17 05:18 12/19/17 05:18 PT 13.8 Seconds (9.8-13.1) H 12/14/17 07:10 INR 1.2 (0.9-1.2) 12/14/17 07:10 APTT 34.4 Seconds (25.6-37.1) 10/26/17 12:30 Assessment and Plan (1) CANDELARIA (acute kidney injury) Status: Resolved (2) Acute respiratory failure Status: Acute (3) Altered mental status Status: Acute (4) Pleural effusion, bilateral Status: Resolved (5) Pneumonia Assessment & Plan: On and off and might be related to his long NG tube. Status: Acute (6) Seizure disorder Assessment & Plan: No Seizures since increasing his Lamictal to 150 mg Q 12 hrs. Status: Chronic (7) Encephalopathy Assessment & Plan: Still having periods of lethargy. Status: Acute
[2017-12-20 05:38] LABS: HEMOGLOBIN 10.4 g/dL (12.0-18.0); MEAN CELL VOLUME 93.8 fl (80.0-94.0); MEAN CORPUSCULAR HEMOGLOBIN 30.1 pg (27.0-31.0); MEAN CORPUSCULAR HGB CONC 32.1 g/dL (33.0-37.0); RBC 3.45 Mil/uL (4.40-5.90); RED CELL DISTRIBUTION WIDTH 17.6 % (11.5-14.5); WHITE BLOOD COUNT 8.7 K/uL (4.8-10.8)
[2017-12-20 05:59] LABS: BLOOD UREA NITROGEN 19 mg/dl (9-20); CALCIUM 8.7 mg/dL (8.4-10.2); GFR AFRICAN-AMERICAN > 60; GFR NON-AFRICAN AMERICAN > 60
[2017-12-20] MEDS: Cholecalciferol 1,000 INTLU TAB PO SCH (10:04)
[2017-12-20] MEDS: Digoxin 500 mcg/2ml (0.5 mg/2ml) Inj IVP SCH (10:07)
[2017-12-20] MEDS: Cefepime 1 GM in Sodium Chloride 0.9% 100 ML IVPB SCH (10:12)
[2017-12-20] MEDS: Pantoprazole 40 mg EC Tab PO SCH (10:12)
[2017-12-20 11:23] LABS: ABG ALLEN TEST YES; ARTERIAL BLOOD GAS HCO3 34.2 mmol/L (21-28); ARTERIAL BLOOD GAS O2 CAPACITY 13.9 mL/dL (16-24); ARTERIAL BLOOD GAS O2 SAT 100.4 % (95-98); ARTERIAL BLOOD GAS PCO2 54 mm/Hg (35-45); ARTERIAL BLOOD GAS PH 7.45 (7.35-7.45); ARTERIAL BLOOD GAS PO2 116 mm/Hg (80-100); ARTERIAL BLOOD GAS TCO2 39.2 mmol/L (22-28)
--- NOTE | 2017-12-20 13:54 | CP.PCM.PN ---
Subjective - Date & Time of Evaluation Date of Evaluation: 12/20/17 Time of Evaluation: 08:00 - Subjective Subjective: events noted hi flow O2 tolerating IV rx Objective - Vital Signs/Intake and Output Vital Signs (last 24 hours): Temp Pulse Resp BP Pulse Ox 98.5 F 72 16 152/68 H 100 12/20/17 08:00 12/20/17 10:14 12/20/17 11:08 12/20/17 10:14 12/20/17 06:00 Intake and Output: 12/20/17 12/20/17 06:59 18:59 Intake Total 1000 1050 Output Total 650 220 Balance 350 830 - Medications Medications: Current Medications Apixaban (Eliquis) 2.5 mg PO Q12 [facility] PRN Reason: Protocol Last Admin: 12/20/17 10:15 Dose: 2.5 mg Cholecalciferol (Vitamin D) 5,000 intlu PO DAILY [facility] Last Admin: 12/20/17 10:04 Dose: 5,000 intlu Digoxin (Lanoxin) 0.125 mg IVP DAILY [facility] Last Admin: 12/20/17 10:07 Dose: 0.125 mg Diltiazem HCl (Cardizem) 30 mg PO TID [facility] Last Admin: 12/20/17 10:14 Dose: 30 mg Vancomycin HCl 750 mg/ Sodium (Chloride) 250 mls @ 166.667 mls/hr IVPB Q48H [facility] PRN Reason: Protocol Last Admin: 12/20/17 10:16 Dose: 166.667 mls/hr Ipratropium [place] (Atrovent) 0.5 mg IH RQ4 PRN PRN Reason: Shortness of Breath Lamotrigine (Lamictal) 150 mg PO Q12@0930,2130 [facility] Last Admin: 12/20/17 10:11 Dose: 150 mg Levalbuterol HCl (Xopenex) 0.63 mg INH RQ4 PRN PRN Reason: Shortness of Breath Metoprolol Tartrate (Lopressor) 25 mg PO Q12 [facility] Last Admin: 12/20/17 10:04 Dose: 25 mg Pantoprazole Sodium (Protonix Ec Tab) 40 mg PO DAILY [facility] Last Admin: 12/20/17 10:12 Dose: 40 mg - Labs Labs: 12/20/17 05:15 12/20/17 05:15 PT 13.8 Seconds (9.8-13.1) H 12/14/17 07:10 INR 1.2 (0.9-1.2) 12/14/17 07:10 APTT 34.4 Seconds (25.6-37.1) 10/26/17 12:30 - Constitutional Appears: Cachectic, Chronically Ill - Head Exam Head Exam: NORMOCEPHALIC - Eye Exam Eye Exam: PERRL - ENT Exam ENT Exam: Mucous Membranes Dry - Neck Exam Neck Exam: absent: Lymphadenopathy - Respiratory Exam Respiratory Exam: Decreased Breath Sounds - Cardiovascular Exam Cardiovascular Exam: REGULAR RHYTHM - GI/Abdominal Exam GI & Abdominal Exam: Distended, Soft - Rectal Exam Rectal Exam: Deferred - Exam Exam: NORMAL INSPECTION - Extremities Exam Extremities Exam: absent: Pedal Edema - Back Exam Back Exam: absent: CVA tenderness (L), CVA tenderness (R) Assessment and Plan (1) CANDELARIA (acute kidney injury) Status: Resolved (2) Acute respiratory failure Status: Acute (3) Altered mental status Status: Acute (4) Diastolic CHF, acute on chronic Status: Acute (5) Pleural effusion, bilateral Status: Resolved (6) Pneumonia Status: Acute (7) Aortic valve vegetation Status: Acute - Assessment and Plan (Free Text) Assessment: no new positive cultures cont rx
--- NOTE | 2017-12-20 15:43 | CP.PCM.PN ---
Subjective - Date & Time of Evaluation Date of Evaluation: 12/20/17 Time of Evaluation: 16:10 - Subjective Subjective: F/U Respiratory Failure Pt lethargic, listening conversation with , smiling. Objective - Vital Signs/Intake and Output Vital Signs (last 24 hours): Temp Pulse Resp BP Pulse Ox 97.9 F 76 16 164/81 H 100 12/20/17 12:00 12/20/17 14:11 12/20/17 11:08 12/20/17 14:11 12/20/17 06:00 Intake and Output: 12/20/17 12/20/17 06:59 18:59 Intake Total 1000 1050 Output Total 650 220 Balance 350 830 - Medications Medications: Current Medications Apixaban (Eliquis) 2.5 mg PO Q12 [facility] PRN Reason: Protocol Last Admin: 12/20/17 10:15 Dose: 2.5 mg Cholecalciferol (Vitamin D) 5,000 intlu PO DAILY [facility] Last Admin: 12/20/17 10:04 Dose: 5,000 intlu Digoxin (Lanoxin) 0.125 mg IVP DAILY [facility] Last Admin: 12/20/17 10:07 Dose: 0.125 mg Diltiazem HCl (Cardizem) 30 mg PO TID [facility] Last Admin: 12/20/17 14:11 Dose: 30 mg Vancomycin HCl 750 mg/ Sodium (Chloride) 250 mls @ 166.667 mls/hr IVPB Q48H [facility] PRN Reason: Protocol Last Admin: 12/20/17 10:16 Dose: 166.667 mls/hr Ipratropium [place] (Atrovent) 0.5 mg IH RQ4 PRN PRN Reason: Shortness of Breath Lamotrigine (Lamictal) 150 mg PO Q12@0930,2130 [facility] Last Admin: 12/20/17 10:11 Dose: 150 mg Levalbuterol HCl (Xopenex) 0.63 mg INH RQ4 PRN PRN Reason: Shortness of Breath Metoprolol Tartrate (Lopressor) 25 mg PO Q12 [facility] Last Admin: 12/20/17 10:04 Dose: 25 mg Pantoprazole Sodium (Protonix Ec Tab) 40 mg PO DAILY [facility] Last Admin: 12/20/17 10:12 Dose: 40 mg - Labs Labs: 12/20/17 05:15 12/20/17 05:15 PT 13.8 Seconds (9.8-13.1) H 12/14/17 07:10 INR 1.2 (0.9-1.2) 12/14/17 07:10 APTT 34.4 Seconds (25.6-37.1) 10/26/17 12:30 - Constitutional Appears: No Acute Distress, Chronically Ill - Head Exam Head Exam: NORMAL INSPECTION - Eye Exam Eye Exam: PERRL - ENT Exam ENT Exam: Normal Exam Additional comments: High flow O2 - Neck Exam Neck Exam: Normal Inspection - Respiratory Exam Respiratory Exam: Decreased Breath Sounds (at bases) - Cardiovascular Exam Cardiovascular Exam: Irregular Rhythm - GI/Abdominal Exam GI & Abdominal Exam: Soft, Normal Bowel Sounds - Extremities Exam Extremities Exam: Normal Inspection - Back Exam Additional comments: L-S lesion healing - Neurological Exam Neurological Exam: Awake Additional comments: More alert. No focal motor deficit, generalized weakness. - Skin Skin Exam: Warm Assessment and Plan (1) Acute respiratory failure with hypoxia Status: Acute (2) Encephalopathy Status: Acute (3) Pleural effusion, bilateral Status: Resolved (4) Diastolic CHF, acute on chronic Status: Acute (5) Hx of seizure disorder Status: Chronic (6) A-fib Status: Chronic (7) CANDELARIA (acute kidney injury) Status: Resolved (8) Anemia Status: Chronic (9) Aortic valve vegetation Status: Acute (10) SUSAN (obstructive sleep apnea) Status: Chronic (11) Pulmonary hypertension Status: Chronic (12) Clostridium difficile infection Status: Acute - Assessment and Plan (Free Text) Plan: On high flow O2, continue Vanco and rest of tx. ICU Time: 40 min.
--- NOTE | 2017-12-21 00:22 | CP.PCM.PN ---
Subjective - Date & Time of Evaluation Date of Evaluation: 12/20/17 Time of Evaluation: 22:00 - Subjective Subjective: Patient is reported to be talking more fluently. moving his left hand more than the right side. Patient is more alert and interactive. No seizures are reported, he is on Lamictal 150 mg Q [address] Brain are ordered. Vital signs are showing fluctuations of his BP. Objective - Vital Signs/Intake and Output Vital Signs (last 24 hours): Temp Pulse Resp BP Pulse Ox 97.8 F 65 21 165/68 H 100 12/20/17 16:43 12/20/17 21:46 12/20/17 19:39 12/20/17 21:46 12/20/17 18:00 Intake and Output: 12/20/17 12/21/17 18:59 06:59 Intake Total 1750 Output Total 400 Balance 1350 - Medications Medications: Current Medications Apixaban (Eliquis) 2.5 mg PO Q12 [facility] PRN Reason: Protocol Last Admin: 12/20/17 21:45 Dose: 2.5 mg Cholecalciferol (Vitamin D) 5,000 intlu PO DAILY [facility] Last Admin: 12/20/17 10:04 Dose: 5,000 intlu Digoxin (Lanoxin) 0.125 mg IVP DAILY [facility] Last Admin: 12/20/17 10:07 Dose: 0.125 mg Diltiazem HCl (Cardizem) 30 mg PO TID [facility] Last Admin: 12/20/17 16:57 Dose: 30 mg Vancomycin HCl 750 mg/ Sodium (Chloride) 250 mls @ 166.667 mls/hr IVPB Q48H [facility] PRN Reason: Protocol Last Admin: 12/20/17 10:16 Dose: 166.667 mls/hr Ipratropium [place] (Atrovent) 0.5 mg IH RQ4 PRN PRN Reason: Shortness of Breath Lamotrigine (Lamictal) 150 mg PO Q12@0930,2130 [facility] Last Admin: 12/20/17 21:45 Dose: 150 mg Levalbuterol HCl (Xopenex) 0.63 mg INH RQ4 PRN PRN Reason: Shortness of Breath Metoprolol Tartrate (Lopressor) 25 mg PO Q12 [facility] Last Admin: 12/20/17 21:46 Dose: 25 mg Pantoprazole Sodium (Protonix Ec Tab) 40 mg PO DAILY [facility] Last Admin: 12/20/17 10:12 Dose: 40 mg - Labs Labs: 12/20/17 05:15 12/20/17 05:15 PT 13.8 Seconds (9.8-13.1) H 12/14/17 07:10 INR 1.2 (0.9-1.2) 12/14/17 07:10 APTT 34.4 Seconds (25.6-37.1) 10/26/17 12:30 Assessment and Plan (1) CANDELARIA (acute kidney injury) Status: Resolved (2) Acute respiratory failure Status: Acute (3) Altered mental status Status: Acute (4) Pleural effusion, bilateral Status: Resolved (5) Pneumonia Status: Acute (6) Seizure disorder Status: Chronic (7) Encephalopathy Status: Acute
[2017-12-21 05:52] LABS: BASO # 0.1 K/uL (0.0-0.2); BASO % 0.9 % (0.0-2.0); EOS # 0.2 K/uL (0.0-0.7); EOS % 2.5 % (0.0-4.0); HEMOGLOBIN 9.4 g/dL (12.0-18.0); LYMPH # 0.9 K/uL (1.0-4.3); LYMPH % 12.5 % (20.0-40.0); MEAN CELL VOLUME 94.4 fl (80.0-94.0); MEAN CORPUSCULAR HEMOGLOBIN 30.1 pg (27.0-31.0); MEAN CORPUSCULAR HGB CONC 31.9 g/dL (33.0-37.0); MEAN PLATELET VOLUME 8.3 fl (7.2-11.7); MONO # 0.7 K/uL (0.0-0.8); NEUT # 5.4 K/uL (1.8-7.0); NEUT % 74.1 % (50.0-75.0); RBC 3.13 Mil/uL (4.40-5.90); WHITE BLOOD COUNT 7.3 K/uL (4.8-10.8)
[2017-12-21 05:58] LABS: BLOOD UREA NITROGEN 21 mg/dl (9-20); CALCIUM 8.4 mg/dL (8.4-10.2); GFR AFRICAN-AMERICAN > 60; GFR NON-AFRICAN AMERICAN > 60
[2017-12-21] MEDS: Digoxin 500 mcg/2ml (0.5 mg/2ml) Inj IVP SCH (09:15)
[2017-12-21] MEDS: Pantoprazole 40 mg EC Tab PO SCH (09:16)
[2017-12-21] MEDS: Cholecalciferol 1,000 INTLU TAB PO SCH (09:19)
--- NOTE | 2017-12-21 16:06 | CP.PCM.PN ---
Subjective - Date & Time of Evaluation Date of Evaluation: 12/21/17 Time of Evaluation: 11:00 - Subjective Subjective: F/U Respiratory failure. eyes open , smiling , He spontaneously extend his hand to shake my hand, He answer questions Objective - Vital Signs/Intake and Output Vital Signs (last 24 hours): Temp Pulse Resp BP Pulse Ox 97.7 F 69 24 142/64 100 12/21/17 12:00 12/21/17 12:26 12/21/17 13:42 12/21/17 12:26 12/21/17 12:00 Intake and Output: 12/21/17 12/21/17 06:59 18:59 Intake Total 1800 1100 Output Total 400 Balance 1400 1100 - Medications Medications: Current Medications Apixaban (Eliquis) 2.5 mg PO Q12 [facility] PRN Reason: Protocol Last Admin: 12/21/17 09:14 Dose: 2.5 mg Cholecalciferol (Vitamin D) 5,000 intlu PO DAILY [facility] Last Admin: 12/21/17 09:19 Dose: 5,000 intlu Digoxin (Lanoxin) 0.125 mg IVP DAILY [facility] Last Admin: 12/21/17 09:15 Dose: 0.125 mg Diltiazem HCl (Cardizem) 30 mg PO TID [facility] Last Admin: 12/21/17 12:26 Dose: 30 mg Vancomycin HCl 750 mg/ Sodium (Chloride) 250 mls @ 166.667 mls/hr IVPB Q48H [facility] PRN Reason: Protocol Last Admin: 12/20/17 10:16 Dose: 166.667 mls/hr Ipratropium [place] (Atrovent) 0.5 mg IH RQ4 PRN PRN Reason: Shortness of Breath Lamotrigine (Lamictal) 150 mg PO Q12@0930,2130 [facility] Last Admin: 12/21/17 09:15 Dose: 150 mg Levalbuterol HCl (Xopenex) 0.63 mg INH RQ4 PRN PRN Reason: Shortness of Breath Metoprolol Tartrate (Lopressor) 25 mg PO Q12 [facility] Last Admin: 12/21/17 09:16 Dose: 25 mg Pantoprazole Sodium (Protonix Ec Tab) 40 mg PO DAILY [facility] Last Admin: 12/21/17 09:16 Dose: 40 mg - Labs Labs: 12/21/17 04:55 12/21/17 04:55 PT 13.8 Seconds (9.8-13.1) H 12/14/17 07:10 INR 1.2 (0.9-1.2) 12/14/17 07:10 APTT 34.4 Seconds (25.6-37.1) 10/26/17 12:30 - Constitutional Appears: Chronically Ill - Head Exam Head Exam: NORMAL INSPECTION - Eye Exam Eye Exam: PERRL - ENT Exam Additional comments: On High flow O2 - Neck Exam Neck Exam: Normal Inspection - Respiratory Exam Respiratory Exam: Decreased Breath Sounds (at bases) - Cardiovascular Exam Cardiovascular Exam: Irregular Rhythm - GI/Abdominal Exam GI & Abdominal Exam: Soft, Normal Bowel Sounds - Extremities Exam Extremities Exam: Normal Inspection - Back Exam Additional comments: L-DS lesion healing - Neurological Exam Neurological Exam: Awake Additional comments: No focal motor deficit, generalized weakness. - Psychiatric Exam Psychiatric exam: Normal Mood - Skin Skin Exam: Warm Assessment and Plan (1) Acute respiratory failure with hypoxia Status: Acute (2) Encephalopathy Status: Acute (3) Pleural effusion, bilateral Status: Resolved (4) Diastolic CHF, acute on chronic Status: Acute (5) Hx of seizure disorder Status: Chronic (6) A-fib Status: Chronic (7) CANDELARIA (acute kidney injury) Status: Resolved (8) Anemia Status: Chronic (9) Aortic valve vegetation Status: Acute (10) SUSAN (obstructive sleep apnea) Status: Chronic (11) Pulmonary hypertension Status: Chronic (12) Clostridium difficile infection Status: Acute - Assessment and Plan (Free Text) Plan: BP elevated , f/u , consider increase Cardizem QID, continue PT and rest of treatment ICU Time: 39 min.
--- NOTE | 2017-12-21 22:13 | CP.PCM.PN ---
Subjective - Date & Time of Evaluation Date of Evaluation: 12/21/17 Time of Evaluation: 21:00 - Subjective Subjective: EEG and CT Brain are not reported. No Seizures are documented. He is awake, interactive, talking minimally. Speaks very low and weak, hard to understand He has anemia, mildly low Chloride in Blood 96 He is improving slowly. Disoriented X 3 he has bilateral rigidity, but his will object Carbidopa? Levodopa Objective - Vital Signs/Intake and Output Vital Signs (last 24 hours): Temp Pulse Resp BP Pulse Ox 97.5 F L 80 16 179/87 H 100 12/21/17 16:00 12/21/17 21:26 12/21/17 19:48 12/21/17 21:26 12/21/17 18:00 Intake and Output: 12/21/17 12/22/17 18:59 06:59 Intake Total 1800 Output Total 600 Balance 1200 - Medications Medications: Current Medications Apixaban (Eliquis) 2.5 mg PO Q12 [facility] PRN Reason: Protocol Last Admin: 12/21/17 21:23 Dose: 2.5 mg Cholecalciferol (Vitamin D) 5,000 intlu PO DAILY [facility] Last Admin: 12/21/17 09:19 Dose: 5,000 intlu Digoxin (Lanoxin) 0.125 mg IVP DAILY [facility] Last Admin: 12/21/17 09:15 Dose: 0.125 mg Diltiazem HCl (Cardizem) 30 mg PO TID [facility] Last Admin: 12/21/17 17:18 Dose: 30 mg Vancomycin HCl 750 mg/ Sodium (Chloride) 250 mls @ 166.667 mls/hr IVPB Q48H [facility] PRN Reason: Protocol Last Admin: 12/20/17 10:16 Dose: 166.667 mls/hr Ipratropium [place] (Atrovent) 0.5 mg IH RQ4 PRN PRN Reason: Shortness of Breath Lamotrigine (Lamictal) 150 mg PO Q12@0930,2130 [facility] Last Admin: 12/21/17 21:23 Dose: 150 mg Levalbuterol HCl (Xopenex) 0.63 mg INH RQ4 PRN PRN Reason: Shortness of Breath Metoprolol Tartrate (Lopressor) 25 mg PO Q12 [facility] Last Admin: 12/21/17 21:26 Dose: 25 mg Pantoprazole Sodium (Protonix Ec Tab) 40 mg PO DAILY [facility] Last Admin: 12/21/17 09:16 Dose: 40 mg - Labs Labs: 12/21/17 04:55 12/21/17 04:55 PT 13.8 Seconds (9.8-13.1) H 12/14/17 07:10 INR 1.2 (0.9-1.2) 12/14/17 07:10 APTT 34.4 Seconds (25.6-37.1) 10/26/17 12:30 Assessment and Plan (1) CANDELARIA (acute kidney injury) Status: Resolved (2) Acute respiratory failure Status: Acute (3) Altered mental status Status: Acute (4) Pleural effusion, bilateral Status: Resolved (5) Pneumonia Status: Acute (6) Seizure disorder Status: Chronic (7) Encephalopathy Status: Acute
--- NOTE | 2017-12-21 22:26 | PN ---
DATE: 12/21/2017 CRITICAL PROGRESS NOTE The patient is in ICU, bed 427. SUBJECTIVE: The patient is seen and evaluated at the bedside. Past medical, surgical and social history reviewed. Overnight remains extubated on high flow nasal oxygen. Awake and responds briefly to verbal commands. On high flow nasal oxygen 40 liters at 40%, saturating 98 to 99%. NG tube in place, feeding in progress, tolerated well. As per , she denies any new focal deficits or weakness. No tremors or twitches. Denies drooling or _ excessive secretions that is suctioning from nose or mouth. PHYSICAL EXAMINATION VITAL SIGNS: Temperature 97.5, heart rate 63 to 69, blood pressure 142-167/77-90, respiratory rate of 15, oxygen saturation 98 to 99%. Intake 3550, output 800, positive balance 2750. Weight 134 pounds. HEAD, EYES, EARS, NOSE AND THROAT: Pupils reactive. Conjunctivae pink. Sclerae white. NECK: Supple. Trachea central. CHEST: Bilateral breath sounds. Diminished in intensity. HEART: Rhythm irregular. ABDOMEN: Bowel sounds are present. Soft. EXTREMITIES: Dependent edema both upper and lower extremities. NEUROLOGIC: Alert, awake. Withdraws to deep pain. SKIN: Negative for rash. CURRENT MEDICATIONS: Include Eliquis 2.5 mg q. 12, vitamin D 5000 units daily, Lenoxin 0.125 mg IV push daily, Cardizem 30 mg p.o. 3 times daily, ipratropium 0.5 mg q. 4 p.r.n. for shortness of breath, Lamictal 150 mg p.o. 3 times daily, Xopenex 0.63 mg via nebulizer q. 4 hours p.r.n., Lopressor 25 mg p.o. q. 12 hours, Protonix 40 mg p.o. daily, and vancomycin 750 mg every 48 hours. LABORATORY DATA: WBC 7.3, hemoglobin 9.4, hematocrit 29.6, platelet count 255. PT not available. Blood gas on 12/20/2017, pH 7.45, pCO2 54, pO2 116, saturating 100% on high flow nasal oxygen 40%. SMA-7; sodium 139, potassium 5, chloride 96, CO2 35, blood urea nitrogen 21, creatinine of 0.8. Random glucose 114, calcium 8.4. Urinalysis; rbc 6, wbc 4. Microbiology; sputum culture positive for Klebsiella pneumonia as well as pseudomonas aeruginosa. ASSESSMENT AND PLAN: 1. Acute hypoxic respiratory failure, bilateral pleural effusion with compressive atelectasis, status post intubation, now remains extubated on high flow nasal oxygen. 2. Encephalopathy; multifactorial, metabolic versus cryptogenic seizures versus,CO2 retention. 3. Chronic atrial fibrillation, rate currently controlled on Cardizem and continue Eliquis. 4. Cardiomyopathy with diastolic dysfunction. 5. Chronic renal insufficiency. Continue high flow nasal oxygen. Closely monitor for further decompensation in respiratory status. Clive Buckner MD MTDD
[2017-12-22 07:03] LABS: HEMOGLOBIN 9.8 g/dL (12.0-18.0); MEAN CELL VOLUME 93.4 fl (80.0-94.0); MEAN CORPUSCULAR HGB CONC 32.1 g/dL (33.0-37.0); RBC 3.26 Mil/uL (4.40-5.90); RED CELL DISTRIBUTION WIDTH 16.7 % (11.5-14.5); WHITE BLOOD COUNT 7.7 K/uL (4.8-10.8)
[2017-12-22 07:28] LABS: BLOOD UREA NITROGEN 18 mg/dl (9-20); CALCIUM 8.8 mg/dL (8.4-10.2); GFR AFRICAN-AMERICAN > 60; GFR NON-AFRICAN AMERICAN > 60
[2017-12-22] MEDS: Pantoprazole 40 mg EC Tab PO SCH (08:42)
[2017-12-22] MEDS: Digoxin 500 mcg/2ml (0.5 mg/2ml) Inj IVP SCH (08:43)
[2017-12-22] MEDS: Cholecalciferol 1,000 INTLU TAB PO SCH (08:46)
--- NOTE | 2017-12-22 13:23 | CP.PCM.PN ---
Subjective - Date & Time of Evaluation Date of Evaluation: 12/22/17 Time of Evaluation: 10:00 - Subjective Subjective: no fever or leukocytosis iv cefepime on hold Objective - Vital Signs/Intake and Output Vital Signs (last 24 hours): Temp Pulse Resp BP Pulse Ox 97.2 F L 69 17 181/84 H 100 12/22/17 08:00 12/22/17 12:39 12/22/17 11:09 12/22/17 12:39 12/22/17 10:00 Intake and Output: 12/22/17 12/22/17 06:59 18:59 Intake Total 1800 850 Output Total 700 160 Balance 1100 690 - Medications Medications: Current Medications Apixaban (Eliquis) 2.5 mg PO Q12 [facility] PRN Reason: Protocol Last Admin: 12/22/17 08:44 Dose: 2.5 mg Cholecalciferol (Vitamin D) 5,000 intlu PO DAILY [facility] Last Admin: 12/22/17 08:46 Dose: 5,000 intlu Digoxin (Lanoxin) 0.125 mg IVP DAILY [facility] Last Admin: 12/22/17 08:43 Dose: 0.125 mg Diltiazem HCl (Cardizem) 30 mg PO TID [facility] Last Admin: 12/22/17 12:39 Dose: 30 mg Lamotrigine (Lamictal) 150 mg PO Q12@0930,2130 [facility] Last Admin: 12/22/17 08:46 Dose: 150 mg Metoprolol Tartrate (Lopressor) 25 mg PO Q12 [facility] Last Admin: 12/22/17 08:42 Dose: 25 mg Pantoprazole Sodium (Protonix Ec Tab) 40 mg PO DAILY [facility] Last Admin: 12/22/17 08:42 Dose: 40 mg - Labs Labs: 12/22/17 06:00 12/22/17 06:00 PT 13.8 Seconds (9.8-13.1) H 12/14/17 07:10 INR 1.2 (0.9-1.2) 12/14/17 07:10 APTT 34.4 Seconds (25.6-37.1) 10/26/17 12:30 - Constitutional Appears: Confused, Cachectic, Chronically Ill - Head Exam Head Exam: NORMOCEPHALIC - Eye Exam Eye Exam: PERRL. absent: Scleral icterus - ENT Exam ENT Exam: Mucous Membranes Dry - Neck Exam Neck Exam: absent: Lymphadenopathy - Respiratory Exam Respiratory Exam: Decreased Breath Sounds - Cardiovascular Exam Cardiovascular Exam: REGULAR RHYTHM - GI/Abdominal Exam GI & Abdominal Exam: Distended, Soft - Rectal Exam Rectal Exam: Deferred - Exam Exam: NORMAL INSPECTION - Extremities Exam Extremities Exam: absent: Pedal Edema - Back Exam Back Exam: absent: CVA tenderness (L), CVA tenderness (R) - Neurological Exam Neurological Exam: Altered Assessment and Plan (1) CANDELARIA (acute kidney injury) Status: Resolved (2) Acute respiratory failure Status: Acute (3) Altered mental status Status: Acute (4) Diastolic CHF, acute on chronic Status: Acute (5) Pleural effusion, bilateral Status: Resolved (6) Pneumonia Status: Acute (7) Aortic valve vegetation Status: Acute
--- NOTE | 2017-12-22 16:00 | CP.PCM.PN ---
Subjective - Date & Time of Evaluation Date of Evaluation: 12/22/17 Time of Evaluation: 15:20 - Subjective Subjective: F/U Respiratory failure. Awake, able to talk Objective - Vital Signs/Intake and Output Vital Signs (last 24 hours): Temp Pulse Resp BP Pulse Ox 96.8 F L 60 18 156/66 H 100 12/22/17 12:00 12/22/17 14:00 12/22/17 14:00 12/22/17 14:00 12/22/17 14:00 Intake and Output: 12/22/17 12/22/17 06:59 18:59 Intake Total 1800 1390 Output Total 700 360 Balance 1100 1030 - Medications Medications: Current Medications Apixaban (Eliquis) 2.5 mg PO Q12 [facility] PRN Reason: Protocol Last Admin: 12/22/17 08:44 Dose: 2.5 mg Cholecalciferol (Vitamin D) 5,000 intlu PO DAILY [facility] Last Admin: 12/22/17 08:46 Dose: 5,000 intlu Digoxin (Lanoxin) 0.125 mg IVP DAILY [facility] Last Admin: 12/22/17 08:43 Dose: 0.125 mg Diltiazem HCl (Cardizem) 30 mg PO TID [facility] Lamotrigine (Lamictal) 150 mg PO Q12@0930,2130 [facility] Last Admin: 12/22/17 08:46 Dose: 150 mg Metoprolol Tartrate (Lopressor) 25 mg PO Q12 [facility] Last Admin: 12/22/17 08:42 Dose: 25 mg Pantoprazole Sodium (Protonix Ec Tab) 40 mg PO DAILY [facility] Last Admin: 12/22/17 08:42 Dose: 40 mg - Labs Labs: 12/22/17 06:00 12/22/17 06:00 PT 13.8 Seconds (9.8-13.1) H 12/14/17 07:10 INR 1.2 (0.9-1.2) 12/14/17 07:10 APTT 34.4 Seconds (25.6-37.1) 10/26/17 12:30 - Constitutional Appears: Chronically Ill - Head Exam Head Exam: NORMAL INSPECTION - Eye Exam Eye Exam: PERRL - ENT Exam Additional comments: NG tube - Neck Exam Neck Exam: Normal Inspection - Respiratory Exam Respiratory Exam: Decreased Breath Sounds (at bases) - Cardiovascular Exam Cardiovascular Exam: Irregular Rhythm - GI/Abdominal Exam GI & Abdominal Exam: Soft, Normal Bowel Sounds - Extremities Exam Extremities Exam: Normal Inspection - Back Exam Back Exam: NORMAL INSPECTION - Neurological Exam Additional comments: awake , follows commands - Psychiatric Exam Additional comments: calm - Skin Skin Exam: Warm Assessment and Plan (1) Acute respiratory failure with hypoxia Status: Acute (2) Encephalopathy Status: Acute (3) Pleural effusion, bilateral Status: Resolved (4) Diastolic CHF, acute on chronic Status: Acute (5) Hx of seizure disorder Status: Chronic (6) A-fib Status: Chronic (7) CANDELARIA (acute kidney injury) Status: Resolved (8) Anemia Status: Chronic (9) Aortic valve vegetation Status: Acute (10) SUSAN (obstructive sleep apnea) Status: Chronic (11) Pulmonary hypertension Status: Chronic (12) Clostridium difficile infection Status: Acute (13) Hypertension Status: Acute - Assessment and Plan (Free Text) Plan: BP fluctuating with SBP up to 180's discussed with Patient's , Dr Castro f/u to adjust BP meds , off Cefepime continue current Tx and PT , f/u ABG in am. ICU Time: 38 min.
--- NOTE | 2017-12-22 21:40 | CP.PCM.PN ---
Subjective - Date & Time of Evaluation Date of Evaluation: 12/22/17 Time of Evaluation: 21:36 - Subjective Subjective: Patient has fluctuating High Blood Pressure, anemia, off Cefipime due to absence of Fever, according to dr Winslow. There is no documented Seizures. He is awake alert, weak speech, disoriented. Objective - Vital Signs/Intake and Output Vital Signs (last 24 hours): Temp Pulse Resp BP Pulse Ox 97.9 F 105 H 15 168/86 H 100 12/22/17 16:00 12/22/17 20:39 12/22/17 19:26 12/22/17 20:39 12/22/17 18:00 Intake and Output: 12/22/17 12/23/17 18:59 06:59 Intake Total 1970 140 Output Total 1010 Balance 960 140 - Medications Medications: Current Medications Cholecalciferol (Vitamin D) 5,000 intlu PO DAILY [facility] Last Admin: 12/22/17 08:46 Dose: 5,000 intlu Digoxin (Lanoxin) 0.125 mg IVP DAILY [facility] Last Admin: 12/22/17 08:43 Dose: 0.125 mg Diltiazem HCl (Cardizem) 30 mg PO TID [facility] Last Admin: 12/22/17 17:15 Dose: 30 mg Lamotrigine (Lamictal) 150 mg PO Q12@0930,2130 [facility] Last Admin: 12/22/17 20:38 Dose: 150 mg Metoprolol Tartrate (Lopressor) 25 mg PO Q12 [facility] Last Admin: 12/22/17 20:39 Dose: 25 mg Pantoprazole Sodium (Protonix Ec Tab) 40 mg PO DAILY [facility] Last Admin: 12/22/17 08:42 Dose: 40 mg - Labs Labs: 12/22/17 06:00 12/22/17 06:00 PT 13.8 Seconds (9.8-13.1) H 12/14/17 07:10 INR 1.2 (0.9-1.2) 12/14/17 07:10 APTT 34.4 Seconds (25.6-37.1) 10/26/17 12:30 Assessment and Plan (1) CANDELARIA (acute kidney injury) Status: Resolved (2) Acute respiratory failure Status: Acute (3) Altered mental status Status: Acute (4) Pleural effusion, bilateral Status: Resolved (5) Pneumonia Status: Acute (6) Seizure disorder Status: Chronic (7) Encephalopathy Status: Acute
--- NOTE | 2017-12-23 06:29 | CP.PCM.PN ---
Subjective - Date & Time of Evaluation Date of Evaluation: 12/19/17 Time of Evaluation: 14:00 - Subjective Subjective: feeling fine extubated Objective - Vital Signs/Intake and Output Vital Signs (last 24 hours): Temp Pulse Resp BP Pulse Ox 98.3 F 88 18 158/87 H 100 12/23/17 04:00 12/23/17 04:00 12/23/17 04:58 12/23/17 04:00 12/23/17 04:00 Intake and Output: 12/22/17 12/23/17 18:59 06:59 Intake Total 1970 950 Output Total 1010 Balance 960 950 - Medications Medications: Current Medications Cholecalciferol (Vitamin D) 5,000 intlu PO DAILY [facility] Last Admin: 12/22/17 08:46 Dose: 5,000 intlu Digoxin (Lanoxin) 0.125 mg IVP DAILY [facility] Last Admin: 12/22/17 08:43 Dose: 0.125 mg Diltiazem HCl (Cardizem) 30 mg PO TID [facility] Last Admin: 12/22/17 17:15 Dose: 30 mg Lamotrigine (Lamictal) 150 mg PO Q12@0930,2130 [facility] Last Admin: 12/22/17 20:38 Dose: 150 mg Metoprolol Tartrate (Lopressor) 25 mg PO Q12 [facility] Last Admin: 12/22/17 20:39 Dose: 25 mg Pantoprazole Sodium (Protonix Ec Tab) 40 mg PO DAILY [facility] Last Admin: 12/22/17 08:42 Dose: 40 mg - Labs Labs: 12/22/17 06:00 12/22/17 06:00 PT 13.8 Seconds (9.8-13.1) H 12/14/17 07:10 INR 1.2 (0.9-1.2) 12/14/17 07:10 APTT 34.4 Seconds (25.6-37.1) 10/26/17 12:30 - Constitutional Appears: Well - Head Exam Head Exam: ATRAUMATIC, NORMAL INSPECTION, NORMOCEPHALIC - Eye Exam Eye Exam: EOMI, Normal appearance, PERRL Pupil Exam: NORMAL ACCOMODATION, PERRL - ENT Exam ENT Exam: Mucous Membranes Moist, Normal Exam - Neck Exam Neck Exam: Full ROM, Normal Inspection. absent: Lymphadenopathy - Respiratory Exam Respiratory Exam: Clear to Ausculation Bilateral, Rales, NORMAL BREATHING PATTERN - Cardiovascular Exam Cardiovascular Exam: Irregular Rhythm, +S1, +S2, Murmur - GI/Abdominal Exam GI & Abdominal Exam: Soft, Normal Bowel Sounds. absent: Tenderness - Extremities Exam Extremities Exam: Full ROM, Normal Capillary Refill, Normal Inspection. absent : Joint Swelling, Pedal Edema - Back Exam Back Exam: NORMAL INSPECTION - Neurological Exam Neurological Exam: Alert, Awake - Psychiatric Exam Psychiatric exam: Normal Affect, Normal Mood - Skin Skin Exam: Dry, Intact, Normal Color, Warm Assessment and Plan (1) A-fib Status: Chronic (2) Acute on chronic diastolic (congestive) heart failure Status: Chronic (3) Acute respiratory failure with hypoxia Status: Acute (4) Altered mental status Status: Acute (5) HTN (hypertension) Status: Chronic (6) Seizure disorder Status: Chronic (7) CANDELARIA (acute kidney injury) Status: Resolved (8) Encephalopathy Status: Acute (9) Hypothermia Status: Acute (10) Pleural effusion, bilateral Status: Resolved (11) Supratherapeutic international normalized ratio (INR) Status: Acute (12) Acute decompensated heart failure Status: Acute (13) Atrial fibrillation with RVR Status: Acute
--- NOTE | 2017-12-23 06:31 | CP.PCM.PN ---
Subjective - Date & Time of Evaluation Date of Evaluation: 12/20/17 Time of Evaluation: 15:00 - Subjective Subjective: extubated awake and responsive Cardizem dose decreased BP noted to have intermittent bouts of elevation Objective - Vital Signs/Intake and Output Vital Signs (last 24 hours): Temp Pulse Resp BP Pulse Ox 98.3 F 88 18 158/87 H 100 12/23/17 04:00 12/23/17 04:00 12/23/17 04:58 12/23/17 04:00 12/23/17 04:00 Intake and Output: 12/22/17 12/23/17 18:59 06:59 Intake Total 1970 950 Output Total 1010 Balance 960 950 - Medications Medications: Current Medications Cholecalciferol (Vitamin D) 5,000 intlu PO DAILY [facility] Last Admin: 12/22/17 08:46 Dose: 5,000 intlu Digoxin (Lanoxin) 0.125 mg IVP DAILY [facility] Last Admin: 12/22/17 08:43 Dose: 0.125 mg Diltiazem HCl (Cardizem) 30 mg PO TID [facility] Last Admin: 12/22/17 17:15 Dose: 30 mg Lamotrigine (Lamictal) 150 mg PO Q12@0930,2130 [facility] Last Admin: 12/22/17 20:38 Dose: 150 mg Metoprolol Tartrate (Lopressor) 25 mg PO Q12 [facility] Last Admin: 12/22/17 20:39 Dose: 25 mg Pantoprazole Sodium (Protonix Ec Tab) 40 mg PO DAILY [facility] Last Admin: 12/22/17 08:42 Dose: 40 mg - Labs Labs: 12/22/17 06:00 12/22/17 06:00 PT 13.8 Seconds (9.8-13.1) H 12/14/17 07:10 INR 1.2 (0.9-1.2) 12/14/17 07:10 APTT 34.4 Seconds (25.6-37.1) 10/26/17 12:30 - Constitutional Appears: Well - Head Exam Head Exam: ATRAUMATIC, NORMAL INSPECTION, NORMOCEPHALIC - Eye Exam Eye Exam: EOMI, Normal appearance, PERRL Pupil Exam: NORMAL ACCOMODATION, PERRL - ENT Exam ENT Exam: Mucous Membranes Moist, Normal Exam - Neck Exam Neck Exam: Full ROM, Normal Inspection. absent: Lymphadenopathy - Respiratory Exam Respiratory Exam: Clear to Ausculation Bilateral, Rales, NORMAL BREATHING PATTERN - Cardiovascular Exam Cardiovascular Exam: Irregular Rhythm, +S1, +S2, Murmur - GI/Abdominal Exam GI & Abdominal Exam: Soft, Normal Bowel Sounds. absent: Tenderness - Extremities Exam Extremities Exam: Full ROM, Normal Capillary Refill, Normal Inspection. absent : Joint Swelling, Pedal Edema - Back Exam Back Exam: NORMAL INSPECTION - Neurological Exam Neurological Exam: Alert, Awake, CN II-XII Intact, Normal Gait, Oriented x3 - Psychiatric Exam Psychiatric exam: Normal Affect, Normal Mood - Skin Skin Exam: Dry, Intact, Normal Color, Warm Assessment and Plan (1) A-fib Status: Chronic (2) Acute on chronic diastolic (congestive) heart failure Status: Chronic (3) Acute respiratory failure with hypoxia Status: Acute (4) Altered mental status Status: Acute (5) HTN (hypertension) Status: Chronic (6) Seizure disorder Status: Chronic (7) CANDELARIA (acute kidney injury) Status: Resolved (8) Encephalopathy Status: Acute (9) Hypothermia Status: Acute (10) Pleural effusion, bilateral Status: Resolved (11) Supratherapeutic international normalized ratio (INR) Status: Acute (12) Acute decompensated heart failure Status: Acute (13) Atrial fibrillation with RVR Status: Acute
--- NOTE | 2017-12-23 06:32 | CP.PCM.PN ---
Subjective - Date & Time of Evaluation Date of Evaluation: 12/21/17 Time of Evaluation: 17:00 - Subjective Subjective: sleeping HR stable Objective - Vital Signs/Intake and Output Vital Signs (last 24 hours): Temp Pulse Resp BP Pulse Ox 98.3 F 88 18 158/87 H 100 12/23/17 04:00 12/23/17 04:00 12/23/17 04:58 12/23/17 04:00 12/23/17 04:00 Intake and Output: 12/22/17 12/23/17 18:59 06:59 Intake Total 1970 950 Output Total 1010 Balance 960 950 - Medications Medications: Current Medications Cholecalciferol (Vitamin D) 5,000 intlu PO DAILY [facility] Last Admin: 12/22/17 08:46 Dose: 5,000 intlu Digoxin (Lanoxin) 0.125 mg IVP DAILY [facility] Last Admin: 12/22/17 08:43 Dose: 0.125 mg Diltiazem HCl (Cardizem) 30 mg PO TID [facility] Last Admin: 12/22/17 17:15 Dose: 30 mg Lamotrigine (Lamictal) 150 mg PO Q12@0930,2130 [facility] Last Admin: 12/22/17 20:38 Dose: 150 mg Metoprolol Tartrate (Lopressor) 25 mg PO Q12 [facility] Last Admin: 12/22/17 20:39 Dose: 25 mg Pantoprazole Sodium (Protonix Ec Tab) 40 mg PO DAILY [facility] Last Admin: 12/22/17 08:42 Dose: 40 mg - Labs Labs: 12/22/17 06:00 12/22/17 06:00 PT 13.8 Seconds (9.8-13.1) H 12/14/17 07:10 INR 1.2 (0.9-1.2) 12/14/17 07:10 APTT 34.4 Seconds (25.6-37.1) 10/26/17 12:30 - Constitutional Appears: Well - Head Exam Head Exam: ATRAUMATIC, NORMAL INSPECTION, NORMOCEPHALIC - Eye Exam Eye Exam: EOMI, Normal appearance, PERRL Pupil Exam: NORMAL ACCOMODATION, PERRL - ENT Exam ENT Exam: Mucous Membranes Moist, Normal Exam - Neck Exam Neck Exam: Full ROM, Normal Inspection. absent: Lymphadenopathy - Respiratory Exam Respiratory Exam: Clear to Ausculation Bilateral, Rales, NORMAL BREATHING PATTERN - Cardiovascular Exam Cardiovascular Exam: Irregular Rhythm, +S1, +S2, Murmur - GI/Abdominal Exam GI & Abdominal Exam: Soft, Normal Bowel Sounds. absent: Tenderness - Extremities Exam Extremities Exam: Full ROM, Normal Capillary Refill, Normal Inspection. absent : Joint Swelling, Pedal Edema - Back Exam Back Exam: NORMAL INSPECTION - Neurological Exam Neurological Exam: Alert, Awake - Psychiatric Exam Psychiatric exam: Normal Affect, Normal Mood - Skin Skin Exam: Dry, Intact, Normal Color, Warm Assessment and Plan (1) A-fib Status: Chronic (2) Acute on chronic diastolic (congestive) heart failure Status: Chronic (3) Acute respiratory failure with hypoxia Status: Acute (4) Altered mental status Status: Acute (5) HTN (hypertension) Status: Chronic (6) Seizure disorder Status: Chronic (7) CANDELARIA (acute kidney injury) Status: Resolved (8) Encephalopathy Status: Acute (9) Hypothermia Status: Acute (10) Pleural effusion, bilateral Status: Resolved (11) Supratherapeutic international normalized ratio (INR) Status: Acute (12) Acute decompensated heart failure Status: Acute (13) Atrial fibrillation with RVR Status: Acute
--- NOTE | 2017-12-23 06:33 | CP.PCM.PN ---
Subjective - Date & Time of Evaluation Date of Evaluation: 12/23/17 Time of Evaluation: 06:32 - Subjective Subjective: stable awake and responsive Objective - Vital Signs/Intake and Output Vital Signs (last 24 hours): Temp Pulse Resp BP Pulse Ox 98.3 F 88 18 158/87 H 100 12/23/17 04:00 12/23/17 04:00 12/23/17 04:58 12/23/17 04:00 12/23/17 04:00 Intake and Output: 12/22/17 12/23/17 18:59 06:59 Intake Total 1970 950 Output Total 1010 Balance 960 950 - Medications Medications: Current Medications Cholecalciferol (Vitamin D) 5,000 intlu PO DAILY [facility] Last Admin: 12/22/17 08:46 Dose: 5,000 intlu Digoxin (Lanoxin) 0.125 mg IVP DAILY [facility] Last Admin: 12/22/17 08:43 Dose: 0.125 mg Diltiazem HCl (Cardizem) 30 mg PO TID [facility] Last Admin: 12/22/17 17:15 Dose: 30 mg Lamotrigine (Lamictal) 150 mg PO Q12@0930,2130 [facility] Last Admin: 12/22/17 20:38 Dose: 150 mg Metoprolol Tartrate (Lopressor) 25 mg PO Q12 [facility] Last Admin: 12/22/17 20:39 Dose: 25 mg Pantoprazole Sodium (Protonix Ec Tab) 40 mg PO DAILY [facility] Last Admin: 12/22/17 08:42 Dose: 40 mg - Labs Labs: 12/22/17 06:00 12/22/17 06:00 PT 13.8 Seconds (9.8-13.1) H 12/14/17 07:10 INR 1.2 (0.9-1.2) 12/14/17 07:10 APTT 34.4 Seconds (25.6-37.1) 10/26/17 12:30 - Constitutional Appears: Well - Head Exam Head Exam: ATRAUMATIC, NORMAL INSPECTION, NORMOCEPHALIC - Eye Exam Eye Exam: EOMI, Normal appearance, PERRL Pupil Exam: NORMAL ACCOMODATION, PERRL - ENT Exam ENT Exam: Mucous Membranes Moist, Normal Exam - Neck Exam Neck Exam: Full ROM, Normal Inspection. absent: Lymphadenopathy - Respiratory Exam Respiratory Exam: Clear to Ausculation Bilateral, NORMAL BREATHING PATTERN - Cardiovascular Exam Cardiovascular Exam: Irregular Rhythm, +S1, +S2, Murmur - GI/Abdominal Exam GI & Abdominal Exam: Soft, Normal Bowel Sounds. absent: Tenderness - Extremities Exam Extremities Exam: Full ROM, Normal Capillary Refill, Normal Inspection. absent : Joint Swelling, Pedal Edema - Back Exam Back Exam: NORMAL INSPECTION - Neurological Exam Neurological Exam: Alert, Awake - Psychiatric Exam Psychiatric exam: Normal Affect, Normal Mood - Skin Skin Exam: Dry, Intact, Normal Color, Warm Assessment and Plan (1) A-fib Status: Chronic (2) Acute on chronic diastolic (congestive) heart failure Status: Chronic (3) Acute respiratory failure with hypoxia Status: Acute (4) Altered mental status Status: Acute (5) HTN (hypertension) Status: Chronic (6) Seizure disorder Status: Chronic (7) CANDELARIA (acute kidney injury) Status: Resolved (8) Encephalopathy Status: Acute (9) Hypothermia Status: Acute (10) Pleural effusion, bilateral Status: Resolved (11) Supratherapeutic international normalized ratio (INR) Status: Acute (12) Acute decompensated heart failure Status: Acute (13) Atrial fibrillation with RVR Status: Acute
[2017-12-23 08:44] LABS: ABG ALLEN TEST YES; ARTERIAL BLOOD GAS HCO3 35.7 mmol/L (21-28); ARTERIAL BLOOD GAS HEMOGLOBIN 9.3 g/dL (11.7-17.4); ARTERIAL BLOOD GAS O2 CAPACITY 12.9 mL/dL (16-24); ARTERIAL BLOOD GAS O2 SAT 100.5 % (95-98); ARTERIAL BLOOD GAS PCO2 57 mm/Hg (35-45); ARTERIAL BLOOD GAS PH 7.45 (7.35-7.45); ARTERIAL BLOOD GAS PO2 144 mm/Hg (80-100); ARTERIAL BLOOD GAS TCO2 41.3 mmol/L (22-28)
--- NOTE | 2017-12-23 08:44 | PN ---
DATE: 12/22/2017 CRITICAL CARE PROGRESS NOTE The patient in ICU, bed 427. Time spent 35 minutes. SUBJECTIVE: The patient is seen and evaluated at the bedside. Past medical, surgical and social history reviewed. Overnight remains extubated on high-flow nasal oxygen. Remains awake, responds briefly to verbal commands, focus to calling his name,_ and look at the examiner. Saturating 98-99%. NG tube in place. Feeding in progress. Tolerating well. As per , the patient has no new focal deficits or weakness. No tremor or twitches. Denies drooling from mouth as per . PHYSICAL EXAMINATION: VITAL SIGNS: Temperature 97.9, heart rate 61, blood pressure increadesd / 66-72, respiratory rate 19, saturation 100 on FiO2 of 40 liters. Intake 3006 and output 1300. Positive balance 2300. Head, eyes, ears, nose and throat: Pupils are reactive. Conjunctivae are pink. Sclerae are white. NECK: Supple. Trachea central. CHEST: Bilateral breath sounds diminished intensity. HEART: Rhythm irregular. ABDOMEN: Bowel sounds present. Soft. EXTREMITIES: Dependent edema, both upper and lower extremities. NEUROLOGIC: Alert and awake, able to follow simple commands. SKIN: Negative for rash. CURRENT MEDICATIONS: Eliquis 2.5 mg q. 12, vitamin D 5000 units daily, Lanoxin 0.125 mg IV push daily, Cardizem 30 mg p.o. three times a day, ipratropium 0.5 mg q. four, Lamictal 150 mg three times a day, Xopenex 0.63 mg via nebulizer q. 4 hours p.r.n., Lopressor 25 mg p.o. q. 12, Protonix 40 p.o. daily and cefepime on hold. IMPRESSION: Acute hypoxic respiratory failure, bilateral pleural effusion with compressive atelectasis status post multiple thoracenteses stable, now off the ventilator on high-flow nasal oxygen. Remains alert, awake intermittently, tolerating n.p.o. feeds well. Resolving metabolic versus a cryptogenic seizure related encephalopathy, chronic atrial fibrillation, rate controlled on Cardizem and on Eliquis, cardiomyopathy with diastolic dysfunction. Chronic renal insufficiency. Continue high flow oxygen, deep venous thrombosis and gastrointestinal prophylaxis. Clive Buckner MD [facility] # [id number] [place]
[2017-12-23] MEDS: Digoxin 500 mcg/2ml (0.5 mg/2ml) Inj IVP SCH (08:58)
[2017-12-23] MEDS: Pantoprazole 40 mg EC Tab PO SCH (09:00)
[2017-12-23] MEDS: Cholecalciferol 1,000 INTLU TAB PO SCH (09:01)
[2017-12-23 09:46] LABS: BLOOD UREA NITROGEN 16 mg/dl (9-20); CALCIUM 8.8 mg/dL (8.4-10.2); GFR AFRICAN-AMERICAN > 60; GFR NON-AFRICAN AMERICAN > 60
--- NOTE | 2017-12-23 14:48 | CP.PCM.PN ---
Subjective - Date & Time of Evaluation Date of Evaluation: 12/23/17 Time of Evaluation: 12:30 - Subjective Subjective: F/U Respiratory Failure. awake , cooperative , conversant , follows commands , Patient's at bedside Objective - Vital Signs/Intake and Output Vital Signs (last 24 hours): Temp Pulse Resp BP Pulse Ox 98.3 F 74 10 L 169/71 H 100 12/23/17 08:00 12/23/17 14:00 12/23/17 14:00 12/23/17 14:00 12/23/17 14:00 Intake and Output: 12/23/17 12/23/17 06:59 18:59 Intake Total 1090 730 Output Total 550 500 Balance 540 230 - Medications Medications: Current Medications Apixaban (Eliquis) 2.5 mg PO Q12 [facility] PRN Reason: Protocol Cholecalciferol (Vitamin D) 5,000 intlu PO DAILY [facility] Last Admin: 12/23/17 09:01 Dose: 5,000 intlu Digoxin (Lanoxin) 0.125 mg IVP DAILY [facility] Last Admin: 12/23/17 08:58 Dose: 0.125 mg Diltiazem HCl (Cardizem) 30 mg PO Q6 [facility] Last Admin: 12/23/17 11:51 Dose: Not Given Lamotrigine (Lamictal) 150 mg PO Q12@0930,2130 [facility] Last Admin: 12/23/17 08:56 Dose: 150 mg Metoprolol Tartrate (Lopressor) 25 mg PO Q12 [facility] Last Admin: 12/23/17 09:00 Dose: 25 mg Pantoprazole Sodium (Protonix Ec Tab) 40 mg PO DAILY [facility] Last Admin: 12/23/17 09:00 Dose: 40 mg - Labs Labs: 12/22/17 06:00 12/23/17 08:28 PT 13.8 Seconds (9.8-13.1) H 12/14/17 07:10 INR 1.2 (0.9-1.2) 12/14/17 07:10 APTT 34.4 Seconds (25.6-37.1) 10/26/17 12:30 - Constitutional Appears: No Acute Distress, Chronically Ill - Head Exam Head Exam: NORMAL INSPECTION - Eye Exam Eye Exam: PERRL - ENT Exam Additional comments: NG tube - Neck Exam Neck Exam: Normal Inspection - Respiratory Exam Respiratory Exam: Decreased Breath Sounds (at bases) - Cardiovascular Exam Cardiovascular Exam: Irregular Rhythm - GI/Abdominal Exam GI & Abdominal Exam: Soft, Normal Bowel Sounds - Extremities Exam Extremities Exam: Normal Inspection - Back Exam Back Exam: NORMAL INSPECTION - Neurological Exam Neurological Exam: Awake (follows commands.) Additional comments: generalized weakness - Psychiatric Exam Additional comments: Calm - Skin Skin Exam: Warm Assessment and Plan (1) Acute respiratory failure with hypoxia Status: Acute (2) Encephalopathy Status: Acute (3) Pleural effusion, bilateral Status: Resolved (4) Diastolic CHF, acute on chronic Status: Acute (5) Hx of seizure disorder Status: Chronic (6) A-fib Status: Chronic (7) CANDELARIA (acute kidney injury) Status: Resolved (8) Anemia Status: Chronic (9) Aortic valve vegetation Status: Acute (10) SUSAN (obstructive sleep apnea) Status: Chronic (11) Pulmonary hypertension Status: Chronic (12) Clostridium difficile infection Status: Acute (13) Hypertension Status: Acute - Assessment and Plan (Free Text) Plan: Cardizem increased yesterday 30mg NG QID, BP still elevated, f/u with Grievance Manager, continue Metropolol , Digoxin , Eliquis , Lamictal , PT, monitor PCO2 57, f/u ABG am ICU Time: 37 min.
--- NOTE | 2017-12-23 20:35 | PN ---
CRITICAL CARE PROGRESS NOTE DATE: 12/23/2017 SUBJECTIVE: The patient in ICU, bed 427. Seen and evaluated at bedside. PAST MEDICAL, SURGICAL, AND SOCIAL HISTORY: Noted. Overnight remains extubated on high-flow nasal oxygen, awake and responds to verbal commands. No new distress noted. PHYSICAL EXAMINATION: VITAL SIGNS: Temperature 98.3, heart rate 91, respiratory rate 19, and blood pressure 146/73. HEAD, EYES, EARS, NOSE AND THROAT: Pupils are reactive. Conjunctivae are pink. Sclerae are white. NECK: Supple. Trachea central. CHEST: Bilateral breath sounds diminished in intensity. HEART: Rhythm irregular. ABDOMEN: Bowel sounds present. Soft. EXTREMITIES: Dependent edema both upper and lower extremities. NEUROLOGIC: Alert, awake, and able to follow simple commands. SKIN: Negative for rash. CURRENT MEDICATIONS: Eliquis 2.5 mg q.12 hours, vitamin D 5000 units daily, Lanoxin 0.125 mg IV daily, Cardizem 30 mg p.o. q.6 hours, ipratropium 0.5 mg four times daily, Lamictal 150 mg three times a day, Xopenex 0.63 mg via nebulizer q.4 hours, Lopressor 25 mg q.12 hours, Protonix 40 p.o. daily, and cefepime on hold. LABORATORY DATA: ABG; 7.45, pCO2 57, pO2 144, and saturation 100.5 on high-flow oxygen 40 L with 40%. SMA-7; sodium 139, potassium 4.5, chloride 96, CO2 of 39, blood urea nitrogen 16, and creatinine of 0.8. Random glucose 125 and calcium 8.8. WBC 7.7, hemoglobin 9.8, hematocrit 30.5, and platelet count 281. Sputum culture positive for Klebsiella and Pseudomonas aeruginosa. IMPRESSION AND PLAN: Acute hypoxic respiratory failure, bilateral pleural effusion, compressive atelectasis, status post multiple thoracenteses, now remains stable off the ventilator, alert and awake intermittently, and tolerating oral feeds, resolving metabolic encephalopathy. No further seizure noted. On chronic atrial fibrillation, rate controlled on Cardizem and Eliquis. Cardiomyopathy with diastolic dysfunction. Chronic renal insufficiency. Continue high-flow oxygen, deep venous thrombosis, and gastrointestinal prophylaxis. Antibiotics as per Infectious Disease consult. Clive Buckner MD [facility] # [id number]
--- NOTE | 2017-12-23 22:40 | CP.PCM.PN ---
Subjective - Date & Time of Evaluation Date of Evaluation: 12/23/17 Time of Evaluation: 22:36 - Subjective Subjective: BNP is high at 3850, suggesting persistent heart failure. He is awake, confused, reported as stable, minimal amount of talking, answers briefly. There is no reported seizures and he is on Lamictal 150 mg Q 12 hrs. High Systolic in most of the readings. High PCo2 in ABG EEG is performed. He passed his swallowing evaluation test. Objective - Vital Signs/Intake and Output Vital Signs (last 24 hours): Temp Pulse Resp BP Pulse Ox 97.4 F L 70 17 173/82 H 100 12/23/17 20:00 12/23/17 21:00 12/23/17 20:00 12/23/17 21:00 12/23/17 20:00 Intake and Output: 12/23/17 12/24/17 18:59 06:59 Intake Total 1220 80 Output Total 2050 Balance -830 80 - Medications Medications: Current Medications Apixaban (Eliquis) 2.5 mg PO Q12 [facility] PRN Reason: Protocol Last Admin: 12/23/17 20:59 Dose: 2.5 mg Cholecalciferol (Vitamin D) 5,000 intlu PO DAILY [facility] Last Admin: 12/23/17 09:01 Dose: 5,000 intlu Digoxin (Lanoxin) 0.125 mg IVP DAILY [facility] Last Admin: 12/23/17 08:58 Dose: 0.125 mg Diltiazem HCl (Cardizem) 30 mg PO Q6 [facility] Last Admin: 12/23/17 17:15 Dose: 30 mg Lamotrigine (Lamictal) 150 mg PO Q12@0930,2130 [facility] Last Admin: 12/23/17 20:59 Dose: 150 mg Metoprolol Tartrate (Lopressor) 25 mg PO Q12 [facility] Last Admin: 12/23/17 21:00 Dose: 25 mg Pantoprazole Sodium (Protonix Ec Tab) 40 mg PO DAILY [facility] Last Admin: 12/23/17 09:00 Dose: 40 mg - Labs Labs: 12/22/17 06:00 12/23/17 08:28 PT 13.8 Seconds (9.8-13.1) H 12/14/17 07:10 INR 1.2 (0.9-1.2) 12/14/17 07:10 APTT 34.4 Seconds (25.6-37.1) 10/26/17 12:30 Assessment and Plan (1) CANDELARIA (acute kidney injury) Status: Resolved (2) Acute respiratory failure Status: Acute (3) Altered mental status Status: Acute (4) Pleural effusion, bilateral Status: Resolved (5) Pneumonia Status: Acute (6) Seizure disorder Status: Chronic (7) Encephalopathy Status: Acute
[2017-12-24 05:47] LABS: BLOOD UREA NITROGEN 18 mg/dl (9-20); CALCIUM 8.8 mg/dL (8.4-10.2); GFR AFRICAN-AMERICAN > 60; GFR NON-AFRICAN AMERICAN > 60
[2017-12-24 05:55] LABS: HEMOGLOBIN 9.3 g/dL (12.0-18.0); MEAN CELL VOLUME 91.1 fl (80.0-94.0); MEAN CORPUSCULAR HEMOGLOBIN 30.5 pg (27.0-31.0); MEAN CORPUSCULAR HGB CONC 33.5 g/dL (33.0-37.0); RBC 3.05 Mil/uL (4.40-5.90); RED CELL DISTRIBUTION WIDTH 16.9 % (11.5-14.5); WHITE BLOOD COUNT 6.7 K/uL (4.8-10.8)
[2017-12-24] MEDS: Digoxin 500 mcg/2ml (0.5 mg/2ml) Inj IVP SCH (09:21)
[2017-12-24] MEDS: Pantoprazole 40 mg EC Tab PO SCH (09:23)
[2017-12-24] MEDS: Cholecalciferol 1,000 INTLU TAB PO SCH (09:23)
--- NOTE | 2017-12-24 15:26 | CP.PCM.PN ---
Subjective - Date & Time of Evaluation Date of Evaluation: 12/24/17 Time of Evaluation: 10:40 - Subjective Subjective: F/U Respiratory Failure Sleepy , arousable , answer questions Objective - Vital Signs/Intake and Output Vital Signs (last 24 hours): Temp Pulse Resp BP Pulse Ox 98.4 F 107 H 23 151/68 H 100 12/24/17 13:35 12/24/17 13:35 12/24/17 13:35 12/24/17 14:49 12/24/17 09:25 Intake and Output: 12/24/17 12/24/17 06:59 18:59 Intake Total 1415 630 Output Total 700 200 Balance 715 430 - Medications Medications: Current Medications Apixaban (Eliquis) 2.5 mg PO Q12 [facility] PRN Reason: Protocol Last Admin: 12/24/17 09:23 Dose: 2.5 mg Cholecalciferol (Vitamin D) 5,000 intlu PO DAILY [facility] Last Admin: 12/24/17 09:23 Dose: 5,000 intlu Digoxin (Lanoxin) 0.125 mg IVP DAILY [facility] Last Admin: 12/24/17 09:21 Dose: 0.125 mg Diltiazem HCl (Cardizem) 30 mg PO Q6 [facility] Last Admin: 12/24/17 09:25 Dose: 30 mg Furosemide (Lasix) 40 mg IVP DAILY [facility] Lamotrigine (Lamictal) 150 mg PO Q12@0930,2130 [facility] Last Admin: 12/24/17 10:11 Dose: 150 mg Metoprolol Tartrate (Lopressor) 25 mg PO Q12 [facility] Last Admin: 12/24/17 09:19 Dose: 25 mg Pantoprazole Sodium (Protonix Ec Tab) 40 mg PO DAILY [facility] Last Admin: 12/24/17 09:23 Dose: 40 mg - Labs Labs: 12/24/17 04:30 12/24/17 04:30 PT 13.8 Seconds (9.8-13.1) H 12/14/17 07:10 INR 1.2 (0.9-1.2) 12/14/17 07:10 APTT 34.4 Seconds (25.6-37.1) 10/26/17 12:30 - Constitutional Appears: Chronically Ill - Head Exam Head Exam: NORMAL INSPECTION - Eye Exam Eye Exam: PERRL - ENT Exam Additional comments: NGT - Neck Exam Neck Exam: Normal Inspection - Respiratory Exam Respiratory Exam: Decreased Breath Sounds (at bases) - Cardiovascular Exam Cardiovascular Exam: Irregular Rhythm - GI/Abdominal Exam GI & Abdominal Exam: Soft, Normal Bowel Sounds - Extremities Exam Extremities Exam: Normal Inspection - Back Exam Additional comments: Sacral ulcer, no drainage. - Neurological Exam Neurological Exam: Awake Additional comments: Follows commands. - Skin Skin Exam: Warm Assessment and Plan (1) Acute respiratory failure with hypoxia Status: Acute (2) Encephalopathy Status: Acute (3) Pleural effusion, bilateral Status: Resolved (4) Diastolic CHF, acute on chronic Status: Acute (5) Hx of seizure disorder Status: Chronic (6) A-fib Status: Chronic (7) CANDELARIA (acute kidney injury) Status: Resolved (8) Anemia Status: Chronic (9) Aortic valve vegetation Status: Acute (10) SUSAN (obstructive sleep apnea) Status: Chronic (11) Pulmonary hypertension Status: Chronic (12) Clostridium difficile infection Status: Acute (13) Hypertension Status: Acute - Assessment and Plan (Free Text) Plan: Patient's requested Lamictal to be decreased to 100mg BID , continue Cardizem , Lopressor , Eliquis , Lasix , PT , f/u EEG ICU Time: 36 min.
--- NOTE | 2017-12-24 16:35 | CP.PCM.PN ---
Subjective - Date & Time of Evaluation Date of Evaluation: 12/24/17 Time of Evaluation: 16:34 - Subjective Subjective: BNP elevated on lasix HR stable Objective - Vital Signs/Intake and Output Vital Signs (last 24 hours): Temp Pulse Resp BP Pulse Ox 97.2 F L 88 19 153/60 H 100 12/24/17 16:00 12/24/17 16:25 12/24/17 16:25 12/24/17 16:25 12/24/17 16:25 Intake and Output: 12/24/17 12/24/17 06:59 18:59 Intake Total 1415 630 Output Total 700 200 Balance 715 430 - Medications Medications: Current Medications Apixaban (Eliquis) 2.5 mg PO Q12 [facility] PRN Reason: Protocol Last Admin: 12/24/17 09:23 Dose: 2.5 mg Cholecalciferol (Vitamin D) 5,000 intlu PO DAILY [facility] Last Admin: 12/24/17 09:23 Dose: 5,000 intlu Digoxin (Lanoxin) 0.125 mg IVP DAILY [facility] Last Admin: 12/24/17 09:21 Dose: 0.125 mg Diltiazem HCl (Cardizem) 30 mg PO Q6 [facility] Last Admin: 12/24/17 16:25 Dose: 30 mg Furosemide (Lasix) 40 mg IVP DAILY [facility] Lamotrigine (Lamictal) 150 mg PO Q12@0930,2130 [facility] Last Admin: 12/24/17 10:11 Dose: 150 mg Metoprolol Tartrate (Lopressor) 25 mg PO Q12 [facility] Last Admin: 12/24/17 09:19 Dose: 25 mg Pantoprazole Sodium (Protonix Ec Tab) 40 mg PO DAILY [facility] Last Admin: 12/24/17 09:23 Dose: 40 mg - Labs Labs: 12/24/17 04:30 12/24/17 04:30 PT 13.8 Seconds (9.8-13.1) H 12/14/17 07:10 INR 1.2 (0.9-1.2) 12/14/17 07:10 APTT 34.4 Seconds (25.6-37.1) 10/26/17 12:30 - Constitutional Appears: Well - Head Exam Head Exam: ATRAUMATIC, NORMAL INSPECTION, NORMOCEPHALIC - Eye Exam Eye Exam: EOMI, Normal appearance, PERRL Pupil Exam: NORMAL ACCOMODATION, PERRL - ENT Exam ENT Exam: Mucous Membranes Moist, Normal Exam - Neck Exam Neck Exam: Full ROM, Normal Inspection. absent: Lymphadenopathy - Respiratory Exam Respiratory Exam: Clear to Ausculation Bilateral, NORMAL BREATHING PATTERN - Cardiovascular Exam Cardiovascular Exam: Irregular Rhythm, +S1, +S2, Murmur - GI/Abdominal Exam GI & Abdominal Exam: Soft, Normal Bowel Sounds. absent: Tenderness - Extremities Exam Extremities Exam: Full ROM, Normal Capillary Refill, Normal Inspection. absent : Joint Swelling, Pedal Edema - Back Exam Back Exam: NORMAL INSPECTION - Neurological Exam Neurological Exam: Alert, Awake - Psychiatric Exam Psychiatric exam: Normal Affect, Normal Mood - Skin Skin Exam: Dry, Intact, Normal Color, Warm Assessment and Plan (1) A-fib Status: Chronic (2) Acute on chronic diastolic (congestive) heart failure Status: Chronic (3) Acute respiratory failure with hypoxia Status: Acute (4) Altered mental status Status: Acute (5) HTN (hypertension) Status: Chronic (6) Seizure disorder Status: Chronic (7) CANDELARIA (acute kidney injury) Status: Resolved (8) Encephalopathy Status: Acute (9) Hypothermia Status: Acute (10) Pleural effusion, bilateral Status: Resolved (11) Supratherapeutic international normalized ratio (INR) Status: Acute (12) Acute decompensated heart failure Status: Acute (13) Atrial fibrillation with RVR Status: Acute
--- NOTE | 2017-12-24 23:58 | CP.PCM.PN ---
Subjective - Date & Time of Evaluation Date of Evaluation: 12/24/17 Time of Evaluation: 22:25 - Subjective Subjective: High PCO2 at 40 Rigidity in his muscles need Sinemet to help breathing. BP is toward the high readings. No seizures are reported. EEG Reading is pending. Objective - Vital Signs/Intake and Output Vital Signs (last 24 hours): Temp Pulse Resp BP Pulse Ox 97.2 F L 76 19 164/88 H 100 12/24/17 16:00 12/24/17 21:35 12/24/17 21:35 12/24/17 21:35 12/24/17 21:35 Intake and Output: 12/24/17 12/25/17 18:59 06:59 Intake Total 1700 Output Total 1200 Balance 500 - Medications Medications: Current Medications Apixaban (Eliquis) 2.5 mg PO Q12 [facility] PRN Reason: Protocol Last Admin: 12/24/17 21:33 Dose: 2.5 mg Cholecalciferol (Vitamin D) 5,000 intlu PO DAILY [facility] Last Admin: 12/24/17 09:23 Dose: 5,000 intlu Digoxin (Lanoxin) 0.125 mg IVP DAILY [facility] Last Admin: 12/24/17 09:21 Dose: 0.125 mg Diltiazem HCl (Cardizem) 30 mg PO Q6 [facility] Last Admin: 12/24/17 21:35 Dose: 30 mg Furosemide (Lasix) 40 mg IVP DAILY [facility] Lamotrigine (Lamictal) 100 mg PO Q12 [facility] Last Admin: 12/24/17 21:35 Dose: 100 mg Metoprolol Tartrate (Lopressor) 25 mg PO Q12 [facility] Last Admin: 12/24/17 21:33 Dose: 25 mg Pantoprazole Sodium (Protonix Ec Tab) 40 mg PO DAILY [facility] Last Admin: 12/24/17 09:23 Dose: 40 mg - Labs Labs: 12/24/17 04:30 12/24/17 04:30 PT 13.8 Seconds (9.8-13.1) H 12/14/17 07:10 INR 1.2 (0.9-1.2) 12/14/17 07:10 APTT 34.4 Seconds (25.6-37.1) 10/26/17 12:30 Assessment and Plan (1) CANDELARIA (acute kidney injury) Status: Resolved (2) Acute respiratory failure Status: Acute (3) Altered mental status Status: Acute (4) Pleural effusion, bilateral Status: Resolved (5) Pneumonia Status: Acute (6) Seizure disorder Status: Chronic (7) Encephalopathy Status: Acute
[2017-12-25 05:22] LABS: HEMOGLOBIN 9.2 g/dL (12.0-18.0); MEAN CELL VOLUME 92.7 fl (80.0-94.0); MEAN CORPUSCULAR HEMOGLOBIN 29.7 pg (27.0-31.0); MEAN CORPUSCULAR HGB CONC 32.1 g/dL (33.0-37.0); RBC 3.09 Mil/uL (4.40-5.90); RED CELL DISTRIBUTION WIDTH 16.9 % (11.5-14.5); WHITE BLOOD COUNT 6.5 K/uL (4.8-10.8)
[2017-12-25 05:47] LABS: BLOOD UREA NITROGEN 20 mg/dl (9-20); CALCIUM 8.8 mg/dL (8.4-10.2); GFR AFRICAN-AMERICAN > 60; GFR NON-AFRICAN AMERICAN > 60
[2017-12-25 06:20] LABS: ABG ALLEN TEST YES; ARTERIAL BLOOD GAS HCO3 38.8 mmol/L (21-28); ARTERIAL BLOOD GAS HEMOGLOBIN 9.7 g/dL (11.7-17.4); ARTERIAL BLOOD GAS O2 CAPACITY 13.6 mL/dL (16-24); ARTERIAL BLOOD GAS O2 CONTENT 13.6 ML/dL (15-23); ARTERIAL BLOOD GAS PCO2 62 mm/Hg (35-45); ARTERIAL BLOOD GAS PH 7.46 (7.35-7.45); ARTERIAL BLOOD GAS PO2 117 mm/Hg (80-100)
[2017-12-25] MEDS: Digoxin 500 mcg/2ml (0.5 mg/2ml) Inj IVP SCH (09:55)
[2017-12-25] MEDS: Pantoprazole 40 mg EC Tab PO SCH (09:55)
[2017-12-25] MEDS: Cholecalciferol 1,000 INTLU TAB PO SCH (09:57)
--- NOTE | 2017-12-25 13:19 | CP.PCM.PN ---
Subjective - Date & Time of Evaluation Date of Evaluation: 12/25/17 Time of Evaluation: 07:00 - Subjective Subjective: AFEBRILE OFF CEFEPIME REMAINS BED BOUND / WEAK POOR PROGNOSIS NO NEW POSITIVE CULTURES Objective - Vital Signs/Intake and Output Vital Signs (last 24 hours): Temp Pulse Resp BP Pulse Ox 98.4 F 60 15 113/64 100 12/25/17 12:00 12/25/17 12:00 12/25/17 12:00 12/25/17 12:00 12/25/17 12:00 Intake and Output: 12/25/17 12/25/17 06:59 18:59 Intake Total 840 620 Output Total 1000 20 Balance -160 600 - Medications Medications: Current Medications Apixaban (Eliquis) 2.5 mg PO Q12 [facility] PRN Reason: Protocol Last Admin: 12/25/17 09:53 Dose: 2.5 mg Cholecalciferol (Vitamin D) 5,000 intlu PO DAILY [facility] Last Admin: 12/25/17 09:57 Dose: 5,000 intlu Digoxin (Lanoxin) 0.125 mg IVP DAILY [facility] Last Admin: 12/25/17 09:55 Dose: 0.125 mg Diltiazem HCl (Cardizem) 30 mg PO Q6 [facility] Last Admin: 12/25/17 10:04 Dose: 30 mg Furosemide (Lasix) 40 mg IVP DAILY [facility] Last Admin: 12/25/17 09:54 Dose: 40 mg Lamotrigine (Lamictal) 100 mg PO Q12 [facility] Last Admin: 12/25/17 09:55 Dose: 100 mg Metoprolol Tartrate (Lopressor) 25 mg PO Q12 [facility] Last Admin: 12/25/17 09:54 Dose: 25 mg Pantoprazole Sodium (Protonix Ec Tab) 40 mg PO DAILY [facility] Last Admin: 12/25/17 09:55 Dose: 40 mg - Labs Labs: 12/25/17 05:00 12/25/17 05:00 PT 13.8 Seconds (9.8-13.1) H 12/14/17 07:10 INR 1.2 (0.9-1.2) 12/14/17 07:10 APTT 34.4 Seconds (25.6-37.1) 10/26/17 12:30 - Constitutional Appears: Non-toxic, Confused, Cachectic, Chronically Ill - Head Exam Head Exam: NORMOCEPHALIC - Eye Exam Eye Exam: absent: Scleral icterus - ENT Exam ENT Exam: Mucous Membranes Dry - Neck Exam Neck Exam: absent: Lymphadenopathy - Respiratory Exam Respiratory Exam: Decreased Breath Sounds - Cardiovascular Exam Cardiovascular Exam: REGULAR RHYTHM - GI/Abdominal Exam GI & Abdominal Exam: Distended, Soft - Rectal Exam Rectal Exam: Deferred - Exam Exam: NORMAL INSPECTION Assessment and Plan (1) CANDELARIA (acute kidney injury) Status: Resolved (2) Acute respiratory failure Status: Acute (3) Altered mental status Status: Acute (4) Diastolic CHF, acute on chronic Status: Acute (5) Pleural effusion, bilateral Status: Resolved (6) Pneumonia Status: Acute (7) Aortic valve vegetation Status: Acute
--- NOTE | 2017-12-25 14:23 | CP.PCM.PN ---
Subjective - Date & Time of Evaluation Date of Evaluation: 12/25/17 Time of Evaluation: 11:20 - Subjective Subjective: F/U Respiratory Failure sleepy , arousable , smiling , answer simple questions , follows commands, Suzie's complains of BM like foam , white color Objective - Vital Signs/Intake and Output Vital Signs (last 24 hours): Temp Pulse Resp BP Pulse Ox 98.4 F 63 15 139/69 100 12/25/17 12:00 12/25/17 14:00 12/25/17 14:00 12/25/17 14:00 12/25/17 14:00 Intake and Output: 12/25/17 12/25/17 06:59 18:59 Intake Total 840 760 Output Total 1000 20 Balance -160 740 - Medications Medications: Current Medications Apixaban (Eliquis) 2.5 mg PO Q12 [facility] PRN Reason: Protocol Last Admin: 12/25/17 09:53 Dose: 2.5 mg Cholecalciferol (Vitamin D) 5,000 intlu PO DAILY [facility] Last Admin: 12/25/17 09:57 Dose: 5,000 intlu Digoxin (Lanoxin) 0.125 mg IVP DAILY [facility] Last Admin: 12/25/17 09:55 Dose: 0.125 mg Diltiazem HCl (Cardizem) 30 mg PO Q6 [facility] Last Admin: 12/25/17 10:04 Dose: 30 mg Furosemide (Lasix) 40 mg IVP DAILY [facility] Last Admin: 12/25/17 09:54 Dose: 40 mg Lamotrigine (Lamictal) 100 mg PO Q12 [facility] Last Admin: 12/25/17 09:55 Dose: 100 mg Metoprolol Tartrate (Lopressor) 25 mg PO Q12 [facility] Last Admin: 12/25/17 09:54 Dose: 25 mg Pantoprazole Sodium (Protonix Ec Tab) 40 mg PO DAILY [facility] Last Admin: 12/25/17 09:55 Dose: 40 mg - Labs Labs: 12/25/17 05:00 12/25/17 05:00 PT 13.8 Seconds (9.8-13.1) H 12/14/17 07:10 INR 1.2 (0.9-1.2) 12/14/17 07:10 APTT 34.4 Seconds (25.6-37.1) 10/26/17 12:30 - Constitutional Appears: Chronically Ill - Head Exam Head Exam: NORMAL INSPECTION - Eye Exam Eye Exam: PERRL - ENT Exam ENT Exam: Normal Exam Additional comments: NGT, High Flow O2 - Neck Exam Neck Exam: Normal Inspection - Respiratory Exam Respiratory Exam: Decreased Breath Sounds (at bases) - Cardiovascular Exam Cardiovascular Exam: Irregular Rhythm - Extremities Exam Extremities Exam: Normal Inspection - Back Exam Additional comments: Sacral ulcer - Neurological Exam Neurological Exam: Awake (follows commands, generalized weakness.) - Skin Skin Exam: Warm Assessment and Plan (1) Acute respiratory failure with hypoxia Status: Acute (2) Encephalopathy Status: Acute (3) Pleural effusion, bilateral Status: Resolved (4) Diastolic CHF, acute on chronic Status: Acute (5) Hx of seizure disorder Status: Chronic (6) A-fib Status: Chronic (7) CANDELARIA (acute kidney injury) Status: Resolved (8) Anemia Status: Chronic (9) Aortic valve vegetation Status: Acute (10) SUSAN (obstructive sleep apnea) Status: Chronic (11) Pulmonary hypertension Status: Chronic (12) Clostridium difficile infection Status: Acute (13) Hypertension Status: Acute - Assessment and Plan (Free Text) Plan: continue current treatment an medications Cardizem , Lopressor , Eliquis , Digoxin , Lamictal decreased 100 mg BID at Patient's request, PEG water flush reduced , GI consult , PCO2 increasing , to have BIPAP at night , discussed with Patient,s ICU Time: 39 min.
--- NOTE | 2017-12-25 16:52 | CP.PCM.PN ---
Subjective - Date & Time of Evaluation Date of Evaluation: 12/25/17 Time of Evaluation: 16:50 - Subjective Subjective: drowsy and lethargic Objective - Vital Signs/Intake and Output Vital Signs (last 24 hours): Temp Pulse Resp BP Pulse Ox 97.4 F L 85 21 169/88 H 100 12/25/17 16:02 12/25/17 16:02 12/25/17 16:02 12/25/17 16:02 12/25/17 16:02 Intake and Output: 12/25/17 12/25/17 06:59 18:59 Intake Total 840 760 Output Total 1000 20 Balance -160 740 - Medications Medications: Current Medications Apixaban (Eliquis) 2.5 mg PO Q12 [facility] PRN Reason: Protocol Last Admin: 12/25/17 09:53 Dose: 2.5 mg Cholecalciferol (Vitamin D) 5,000 intlu PO DAILY [facility] Last Admin: 12/25/17 09:57 Dose: 5,000 intlu Digoxin (Lanoxin) 0.125 mg IVP DAILY [facility] Last Admin: 12/25/17 09:55 Dose: 0.125 mg Diltiazem HCl (Cardizem) 30 mg PO Q6 [facility] Last Admin: 12/25/17 10:04 Dose: 30 mg Furosemide (Lasix) 40 mg IVP DAILY [facility] Last Admin: 12/25/17 09:54 Dose: 40 mg Lamotrigine (Lamictal) 100 mg PO Q12 [facility] Last Admin: 12/25/17 09:55 Dose: 100 mg Metoprolol Tartrate (Lopressor) 25 mg PO Q12 [facility] Last Admin: 12/25/17 09:54 Dose: 25 mg Pantoprazole Sodium (Protonix Ec Tab) 40 mg PO DAILY [facility] Last Admin: 12/25/17 09:55 Dose: 40 mg - Labs Labs: 12/25/17 05:00 12/25/17 05:00 PT 13.8 Seconds (9.8-13.1) H 12/14/17 07:10 INR 1.2 (0.9-1.2) 12/14/17 07:10 APTT 34.4 Seconds (25.6-37.1) 10/26/17 12:30 - Constitutional Appears: Well - Head Exam Head Exam: ATRAUMATIC, NORMAL INSPECTION, NORMOCEPHALIC - Eye Exam Eye Exam: EOMI, Normal appearance, PERRL Pupil Exam: NORMAL ACCOMODATION, PERRL - ENT Exam ENT Exam: Mucous Membranes Moist, Normal Exam - Neck Exam Neck Exam: Full ROM, Normal Inspection. absent: Lymphadenopathy - Respiratory Exam Respiratory Exam: Clear to Ausculation Bilateral, NORMAL BREATHING PATTERN - Cardiovascular Exam Cardiovascular Exam: REGULAR RHYTHM, +S1, +S2, Murmur - GI/Abdominal Exam GI & Abdominal Exam: Soft, Normal Bowel Sounds. absent: Tenderness - Extremities Exam Extremities Exam: Full ROM, Normal Capillary Refill, Normal Inspection. absent : Joint Swelling, Pedal Edema - Back Exam Back Exam: NORMAL INSPECTION - Neurological Exam Neurological Exam: Alert, Awake, CN II-XII Intact, Normal Gait, Oriented x3 - Psychiatric Exam Psychiatric exam: Normal Affect, Normal Mood - Skin Skin Exam: Dry, Intact, Normal Color, Warm Assessment and Plan (1) A-fib Status: Chronic (2) Acute on chronic diastolic (congestive) heart failure Status: Chronic (3) Acute respiratory failure with hypoxia Status: Acute (4) Altered mental status Status: Acute (5) HTN (hypertension) Status: Chronic (6) Seizure disorder Status: Chronic (7) CANDELARIA (acute kidney injury) Status: Resolved (8) Encephalopathy Status: Acute (9) Hypothermia Status: Acute (10) Pleural effusion, bilateral Status: Resolved (11) Supratherapeutic international normalized ratio (INR) Status: Acute (12) Acute decompensated heart failure Status: Acute (13) Atrial fibrillation with RVR Status: Acute
--- NOTE | 2017-12-25 19:59 | CP.PCM.PN ---
Subjective - Date & Time of Evaluation Date of Evaluation: 12/25/17 Time of Evaluation: 19:52 - Subjective Subjective: He is still in the ICU and his Lamictal is reduced to 100 mg Q 12 hrs based on pressures from the who is doing her best to compromise his treatment. She thinks that the Lamictal is causing his drowsiness and is fighting to stop the Lamictal. She also pressured to stop the Carbidopa-levodopa, while he needs it for extrapyramidal manifestations. Objective - Vital Signs/Intake and Output Vital Signs (last 24 hours): Temp Pulse Resp BP Pulse Ox 97.3 F L 116 H 18 135/69 100 12/25/17 19:42 12/25/17 19:42 12/25/17 19:49 12/25/17 19:42 12/25/17 19:42 Intake and Output: 12/25/17 12/26/17 18:59 06:59 Intake Total 1190 Output Total 1640 Balance -450 - Medications Medications: Current Medications Apixaban (Eliquis) 2.5 mg PO Q12 [facility]S [facility] PRN Reason: Protocol Last Admin: 12/25/17 09:53 Dose: 2.5 mg Cholecalciferol (Vitamin D) 5,000 intlu PO DAILY [facility] Last Admin: 12/25/17 09:57 Dose: 5,000 intlu Digoxin (Lanoxin) 0.125 mg IVP DAILY [facility]S [facility] Last Admin: 12/25/17 09:55 Dose: 0.125 mg Diltiazem HCl (Cardizem) 30 mg PO Q6 [facility] Last Admin: 12/25/17 16:52 Dose: 30 mg Furosemide (Lasix) 40 mg IVP DAILY [facility]S [facility] Last Admin: 12/25/17 09:54 Dose: 40 mg Lamotrigine (Lamictal) 100 mg PO Q12 [facility] Last Admin: 12/25/17 09:55 Dose: 100 mg Metoprolol Tartrate (Lopressor) 25 mg PO Q12 [facility] Last Admin: 12/25/17 09:54 Dose: 25 mg Pantoprazole Sodium (Protonix Ec Tab) 40 mg PO DAILY [facility] Last Admin: 12/25/17 09:55 Dose: 40 mg - Labs Labs: 12/25/17 05:00 12/25/17 05:00 PT 13.8 Seconds (9.8-13.1) H 12/14/17 07:10 INR 1.2 (0.9-1.2) 12/14/17 07:10 APTT 34.4 Seconds (25.6-37.1) 10/26/17 12:30 Assessment and Plan (1) CANDELARIA (acute kidney injury) Status: Resolved (2) Acute respiratory failure Status: Acute (3) Altered mental status Status: Acute (4) Pleural effusion, bilateral Status: Resolved (5) Pneumonia Status: Acute (6) Seizure disorder Status: Chronic (7) Encephalopathy Status: Acute
[2017-12-26] MEDS ORDERED: Metoprolol 1 mg/ml Inj IVP STA (01:41)
[2017-12-26 06:10] LABS: BASO # 0.1 K/uL (0.0-0.2); BASO % 0.9 % (0.0-2.0); EOS # 0.1 K/uL (0.0-0.7); EOS % 2.2 % (0.0-4.0); HEMOGLOBIN 9.1 g/dL (12.0-18.0); LYMPH # 0.8 K/uL (1.0-4.3); LYMPH % 12.2 % (20.0-40.0); MEAN CELL VOLUME 92.1 fl (80.0-94.0); MEAN CORPUSCULAR HGB CONC 32.6 g/dL (33.0-37.0); MEAN PLATELET VOLUME 7.8 fl (7.2-11.7); MONO # 0.8 K/uL (0.0-0.8); MONO % 11.3 % (0.0-10.0); NEUT # 4.9 K/uL (1.8-7.0); NEUT % 73.4 % (50.0-75.0); RBC 3.03 Mil/uL (4.40-5.90); RED CELL DISTRIBUTION WIDTH 16.8 % (11.5-14.5); WHITE BLOOD COUNT 6.6 K/uL (4.8-10.8)
[2017-12-26 06:23] LABS: BLOOD UREA NITROGEN 23 mg/dl (9-20); CALCIUM 8.7 mg/dL (8.4-10.2); GFR AFRICAN-AMERICAN > 60; GFR NON-AFRICAN AMERICAN > 60
[2017-12-26] MEDS: Digoxin 500 mcg/2ml (0.5 mg/2ml) Inj IVP SCH (10:01)
[2017-12-26] MEDS: Pantoprazole 40 mg EC Tab PO SCH (10:07)
[2017-12-26] MEDS: Cholecalciferol 1,000 INTLU TAB PO SCH (10:10)
--- NOTE | 2017-12-26 15:19 | CP.PCM.PN ---
Subjective - Date & Time of Evaluation Date of Evaluation: 12/26/17 Time of Evaluation: 15:18 - Subjective Subjective: feeling fine awake and responsive back to baseline HR and BP stable Objective - Vital Signs/Intake and Output Vital Signs (last 24 hours): Temp Pulse Resp BP Pulse Ox 98.5 F 75 19 137/58 L 100 12/26/17 12:00 12/26/17 12:00 12/26/17 12:00 12/26/17 12:00 12/26/17 12:00 Intake and Output: 12/26/17 12/26/17 06:59 18:59 Intake Total 1150 630 Output Total 550 40 Balance 600 590 - Medications Medications: Current Medications Apixaban (Eliquis) 2.5 mg PO Q12 [facility] PRN Reason: Protocol Last Admin: 12/26/17 09:58 Dose: 2.5 mg Cholecalciferol (Vitamin D) 5,000 intlu PO DAILY [facility] Last Admin: 12/26/17 10:10 Dose: 5,000 intlu Digoxin (Lanoxin) 0.125 mg IVP DAILY [facility] Last Admin: 12/26/17 10:01 Dose: 0.125 mg Diltiazem HCl (Cardizem) 30 mg PO Q6 [facility] Last Admin: 12/26/17 10:09 Dose: 30 mg Furosemide (Lasix) 40 mg IVP DAILY [facility] Last Admin: 12/26/17 10:01 Dose: 40 mg Lamotrigine (Lamictal) 100 mg PO Q12 [facility] Last Admin: 12/26/17 09:58 Dose: 100 mg Metoprolol Tartrate (Lopressor) 25 mg PO Q12 [facility] Last Admin: 12/26/17 10:07 Dose: 25 mg Pantoprazole Sodium (Protonix Ec Tab) 40 mg PO DAILY [facility] Last Admin: 12/26/17 10:07 Dose: 40 mg - Labs Labs: 12/26/17 06:01 12/26/17 06:01 PT 13.8 Seconds (9.8-13.1) H 12/14/17 07:10 INR 1.2 (0.9-1.2) 12/14/17 07:10 APTT 34.4 Seconds (25.6-37.1) 10/26/17 12:30 - Constitutional Appears: Well - Head Exam Head Exam: ATRAUMATIC, NORMAL INSPECTION, NORMOCEPHALIC - Eye Exam Eye Exam: EOMI, Normal appearance, PERRL Pupil Exam: NORMAL ACCOMODATION, PERRL - ENT Exam ENT Exam: Mucous Membranes Moist, Normal Exam - Neck Exam Neck Exam: Full ROM, Normal Inspection. absent: Lymphadenopathy - Respiratory Exam Respiratory Exam: Clear to Ausculation Bilateral, NORMAL BREATHING PATTERN - Cardiovascular Exam Cardiovascular Exam: Irregular Rhythm, +S1, +S2, Murmur - GI/Abdominal Exam GI & Abdominal Exam: Soft, Normal Bowel Sounds. absent: Tenderness - Extremities Exam Extremities Exam: Full ROM, Normal Capillary Refill, Normal Inspection. absent : Joint Swelling, Pedal Edema - Back Exam Back Exam: NORMAL INSPECTION - Neurological Exam Neurological Exam: Alert, Awake, Oriented x3 - Psychiatric Exam Psychiatric exam: Normal Affect, Normal Mood - Skin Skin Exam: Dry, Intact, Normal Color, Warm Assessment and Plan (1) A-fib Status: Chronic (2) Acute on chronic diastolic (congestive) heart failure Status: Chronic (3) Acute respiratory failure with hypoxia Status: Acute (4) Altered mental status Status: Acute (5) HTN (hypertension) Status: Chronic (6) Seizure disorder Status: Chronic (7) CANDELARIA (acute kidney injury) Status: Resolved (8) Encephalopathy Status: Acute (9) Hypothermia Status: Acute (10) Pleural effusion, bilateral Status: Resolved (11) Supratherapeutic international normalized ratio (INR) Status: Acute (12) Acute decompensated heart failure Status: Acute (13) Atrial fibrillation with RVR Status: Acute
--- NOTE | 2017-12-26 16:45 | CP.PCM.PN ---
Subjective - Date & Time of Evaluation Date of Evaluation: 12/25/17 Time of Evaluation: 14:40 - Subjective Subjective: asked to see patient for acholic stools Objective - Vital Signs/Intake and Output Vital Signs (last 24 hours): Temp Pulse Resp BP Pulse Ox 97.8 F 78 11 L 154/60 H 100 12/26/17 16:00 12/26/17 16:33 12/26/17 16:00 12/26/17 16:33 12/26/17 16:00 Intake and Output: 12/26/17 12/26/17 06:59 18:59 Intake Total 1150 910 Output Total 550 40 Balance 600 870 - Medications Medications: Current Medications Apixaban (Eliquis) 2.5 mg PO Q12 [facility] PRN Reason: Protocol Last Admin: 12/26/17 09:58 Dose: 2.5 mg Cholecalciferol (Vitamin D) 5,000 intlu PO DAILY [facility] Last Admin: 12/26/17 10:10 Dose: 5,000 intlu Digoxin (Lanoxin) 0.125 mg IVP DAILY [facility] Last Admin: 12/26/17 10:01 Dose: 0.125 mg Diltiazem HCl (Cardizem) 30 mg PO Q6 [facility] Last Admin: 12/26/17 16:33 Dose: 30 mg Furosemide (Lasix) 40 mg IVP DAILY [facility] Last Admin: 12/26/17 10:01 Dose: 40 mg Lamotrigine (Lamictal) 100 mg PO Q12 [facility] Last Admin: 12/26/17 09:58 Dose: 100 mg Metoprolol Tartrate (Lopressor) 25 mg PO Q12 [facility] Last Admin: 12/26/17 10:07 Dose: 25 mg Pantoprazole Sodium (Protonix Ec Tab) 40 mg PO DAILY [facility] Last Admin: 12/26/17 10:07 Dose: 40 mg - Labs Labs: 12/26/17 06:01 12/26/17 06:01 PT 13.8 Seconds (9.8-13.1) H 12/14/17 07:10 INR 1.2 (0.9-1.2) 12/14/17 07:10 APTT 34.4 Seconds (25.6-37.1) 10/26/17 12:30 - Respiratory Exam Respiratory Exam: Rhonchi - Cardiovascular Exam Cardiovascular Exam: REGULAR RHYTHM - GI/Abdominal Exam GI & Abdominal Exam: Soft, Normal Bowel Sounds Assessment and Plan - Assessment and Plan (Free Text) Assessment: 77 yo male with resolving sepsis regarding white stools, will check lft ID input appreciated
[2017-12-26] MEDS ORDERED: Chlorhexidine Gluconate 1 APPL/PKT TP ONE (18:29)
--- NOTE | 2017-12-26 18:52 | CP.PCM.PN ---
Subjective - Date & Time of Evaluation Date of Evaluation: 12/26/17 Time of Evaluation: 13:15 - Subjective Subjective: F/U Respiratory Failure. alert , smiling , answer questions , follows commands Objective - Vital Signs/Intake and Output Vital Signs (last 24 hours): Temp Pulse Resp BP Pulse Ox 97.8 F 69 17 140/79 100 12/26/17 16:00 12/26/17 18:00 12/26/17 18:00 12/26/17 18:00 12/26/17 18:00 Intake and Output: 12/26/17 12/26/17 06:59 18:59 Intake Total 1150 980 Output Total 550 1060 Balance 600 -80 - Medications Medications: Current Medications Apixaban (Eliquis) 2.5 mg PO Q12 [facility] PRN Reason: Protocol Last Admin: 12/26/17 09:58 Dose: 2.5 mg Cholecalciferol (Vitamin D) 5,000 intlu PO DAILY [facility] Last Admin: 12/26/17 10:10 Dose: 5,000 intlu Digoxin (Lanoxin) 0.125 mg IVP DAILY [facility] Last Admin: 12/26/17 10:01 Dose: 0.125 mg Diltiazem HCl (Cardizem) 30 mg PO Q6 [facility] Last Admin: 12/26/17 16:33 Dose: 30 mg Furosemide (Lasix) 40 mg IVP DAILY [facility] Last Admin: 12/26/17 10:01 Dose: 40 mg Lamotrigine (Lamictal) 100 mg PO Q12 [facility] Last Admin: 12/26/17 09:58 Dose: 100 mg Metoprolol Tartrate (Lopressor) 25 mg PO Q12 [facility] Last Admin: 12/26/17 10:07 Dose: 25 mg Pantoprazole Sodium (Protonix Ec Tab) 40 mg PO DAILY [facility] Last Admin: 12/26/17 10:07 Dose: 40 mg - Labs Labs: 12/26/17 06:01 12/26/17 06:01 PT 13.8 Seconds (9.8-13.1) H 12/14/17 07:10 INR 1.2 (0.9-1.2) 12/14/17 07:10 APTT 34.4 Seconds (25.6-37.1) 10/26/17 12:30 - Constitutional Appears: Chronically Ill - Head Exam Head Exam: NORMAL INSPECTION - Eye Exam Eye Exam: PERRL - ENT Exam Additional comments: NGT, High flow O2 - Neck Exam Neck Exam: Normal Inspection - Respiratory Exam Respiratory Exam: Decreased Breath Sounds (at bases) - Cardiovascular Exam Cardiovascular Exam: Irregular Rhythm - GI/Abdominal Exam GI & Abdominal Exam: Soft, Normal Bowel Sounds - Extremities Exam Extremities Exam: Normal Inspection - Back Exam Additional comments: Sacral ulcer - Neurological Exam Additional comments: Awake, follows commands, generalized weakness. - Psychiatric Exam Psychiatric exam: Normal Mood - Skin Skin Exam: Warm Assessment and Plan (1) Acute respiratory failure with hypoxia Status: Acute (2) Encephalopathy Status: Acute (3) Pleural effusion, bilateral Status: Resolved (4) Diastolic CHF, acute on chronic Status: Acute (5) Hx of seizure disorder Status: Chronic (6) A-fib Status: Chronic (7) CANDELARIA (acute kidney injury) Status: Resolved (8) Anemia Status: Chronic (9) Aortic valve vegetation Status: Acute (10) SUSAN (obstructive sleep apnea) Status: Chronic (11) Pulmonary hypertension Status: Chronic (12) Clostridium difficile infection Status: Acute (13) Hypertension Status: Acute - Assessment and Plan (Free Text) Plan: contiinue Dialtizem , Lopressor , Digoxin , Lasix , Lamictal , able to seat and stand briefly withas per Patien Therapist supportt's , continune PT ICU Time: 36 min.
[2017-12-26 19:51] LABS: ALB/GLOB RATIO 0.9 (1.0-2.1); ALBUMIN 3.2 g/dL (3.5-5.0); BILIRUBIN,DIRECT 0.6 mg/ml (0.0-0.4)
--- NOTE | 2017-12-27 | CP.PCM.PN ---
Subjective - Date & Time of Evaluation Date of Evaluation: 12/26/17 Time of Evaluation: 22:50 - Subjective Subjective: Patient is on a low dose Lamictal, case is discussed with Dr Escamilla regarding the Plans for the Patient. He is more awake, alert but his speech is weak. Objective - Vital Signs/Intake and Output Vital Signs (last 24 hours): Temp Pulse Resp BP Pulse Ox 98.0 F 75 17 147/81 100 12/26/17 20:00 12/26/17 22:14 12/26/17 23:58 12/26/17 22:14 12/26/17 22:14 Intake and Output: 12/26/17 12/27/17 18:59 06:59 Intake Total 980 388 Output Total 1060 Balance -80 388 - Medications Medications: Current Medications Apixaban (Eliquis) 2.5 mg PO Q12 [facility] PRN Reason: Protocol Last Admin: 12/26/17 21:00 Dose: 2.5 mg Cholecalciferol (Vitamin D) 5,000 intlu PO DAILY [facility] Last Admin: 12/26/17 10:10 Dose: 5,000 intlu Digoxin (Lanoxin) 0.125 mg IVP DAILY [facility] Last Admin: 12/26/17 10:01 Dose: 0.125 mg Diltiazem HCl (Cardizem) 30 mg PO Q6 [facility] Last Admin: 12/26/17 22:14 Dose: 30 mg Furosemide (Lasix) 40 mg IVP DAILY [facility] Last Admin: 12/26/17 10:01 Dose: 40 mg Lamotrigine (Lamictal) 100 mg PO Q12 [facility] Last Admin: 12/26/17 21:00 Dose: 100 mg Metoprolol Tartrate (Lopressor) 25 mg PO Q12 [facility] Last Admin: 12/26/17 21:00 Dose: 25 mg Pantoprazole Sodium (Protonix Ec Tab) 40 mg PO DAILY [facility] Last Admin: 12/26/17 10:07 Dose: 40 mg - Labs Labs: 12/26/17 06:01 12/26/17 06:01 PT 13.8 Seconds (9.8-13.1) H 12/14/17 07:10 INR 1.2 (0.9-1.2) 12/14/17 07:10 APTT 34.4 Seconds (25.6-37.1) 10/26/17 12:30 Assessment and Plan (1) CANDELARIA (acute kidney injury) Status: Resolved (2) Acute respiratory failure Status: Acute (3) Altered mental status Status: Acute (4) Pleural effusion, bilateral Status: Resolved (5) Pneumonia Status: Acute (6) Seizure disorder Status: Chronic (7) Encephalopathy Status: Acute
[2017-12-27 06:09] LABS: BLOOD UREA NITROGEN 23 mg/dl (9-20); CALCIUM 8.6 mg/dL (8.4-10.2); GFR AFRICAN-AMERICAN > 60; GFR NON-AFRICAN AMERICAN > 60
[2017-12-27 06:57] LABS: HEMOGLOBIN 9.1 g/dL (12.0-18.0); MEAN CELL VOLUME 91.8 fl (80.0-94.0); MEAN CORPUSCULAR HEMOGLOBIN 30.3 pg (27.0-31.0); RBC 3.01 Mil/uL (4.40-5.90); RED CELL DISTRIBUTION WIDTH 16.5 % (11.5-14.5); WHITE BLOOD COUNT 7.4 K/uL (4.8-10.8)
[2017-12-27] MEDS: Digoxin 500 mcg/2ml (0.5 mg/2ml) Inj IVP SCH (09:13)
[2017-12-27] MEDS: Cholecalciferol 1,000 INTLU TAB PO SCH (09:14)
[2017-12-27] MEDS: Pantoprazole 40 mg EC Tab PO SCH (09:14)
--- NOTE | 2017-12-27 12:17 | CP.PCM.PN ---
Subjective - Date & Time of Evaluation Date of Evaluation: 12/27/17 Time of Evaluation: 09:00 - Subjective Subjective: awake alert bedbound at bedside NGT in place Objective - Vital Signs/Intake and Output Vital Signs (last 24 hours): Temp Pulse Resp BP Pulse Ox 98.2 F 94 H 16 148/82 100 12/27/17 08:00 12/27/17 09:13 12/27/17 08:00 12/27/17 09:13 12/27/17 08:00 Intake and Output: 12/27/17 12/27/17 06:59 18:59 Intake Total 1164 310 Output Total 400 125 Balance 764 185 - Medications Medications: Current Medications Apixaban (Eliquis) 2.5 mg PO Q12 [facility] PRN Reason: Protocol Last Admin: 12/27/17 09:12 Dose: 2.5 mg Cholecalciferol (Vitamin D) 5,000 intlu PO DAILY [facility] Last Admin: 12/27/17 09:14 Dose: 5,000 intlu Digoxin (Lanoxin) 0.125 mg IVP DAILY [facility] Last Admin: 12/27/17 09:13 Dose: 0.125 mg Diltiazem HCl (Cardizem) 30 mg PO Q6 [facility] Last Admin: 12/27/17 09:12 Dose: 30 mg Furosemide (Lasix) 40 mg IVP DAILY [facility] Last Admin: 12/27/17 09:13 Dose: 40 mg Lamotrigine (Lamictal) 100 mg PO Q12 [facility] Last Admin: 12/27/17 09:12 Dose: 100 mg Metoprolol Tartrate (Lopressor) 25 mg PO Q12 [facility] Last Admin: 12/27/17 09:13 Dose: 25 mg Pantoprazole Sodium (Protonix Ec Tab) 40 mg PO DAILY [facility] Last Admin: 12/27/17 09:14 Dose: 40 mg - Labs Labs: 12/27/17 04:20 12/27/17 04:20 PT 13.8 Seconds (9.8-13.1) H 12/14/17 07:10 INR 1.2 (0.9-1.2) 12/14/17 07:10 APTT 34.4 Seconds (25.6-37.1) 10/26/17 12:30 - Constitutional Appears: Confused, Cachectic, Chronically Ill - Head Exam Head Exam: NORMOCEPHALIC - Eye Exam Eye Exam: PERRL. absent: Scleral icterus - ENT Exam ENT Exam: Mucous Membranes Dry - Neck Exam Neck Exam: absent: Lymphadenopathy - Respiratory Exam Respiratory Exam: Decreased Breath Sounds, Rhonchi - Cardiovascular Exam Cardiovascular Exam: REGULAR RHYTHM, +S1, +S2 - GI/Abdominal Exam GI & Abdominal Exam: Distended, Soft. absent: Tenderness - Rectal Exam Rectal Exam: Deferred - Exam Exam: NORMAL INSPECTION - Extremities Exam Extremities Exam: absent: Pedal Edema - Back Exam Back Exam: absent: CVA tenderness (L), CVA tenderness (R) - Neurological Exam Neurological Exam: Alert, Altered, CN II-XII Intact. absent: Oriented x3 Neuro motor strength exam: Left Upper Extremity: 2/1, Right Upper Extremity: 2/1 , Left Lower Extremity: 2/1, Right Lower Extremity: 2/1 - Psychiatric Exam Psychiatric exam: Depressed - Skin Skin Exam: Dry Assessment and Plan (1) CANDELARIA (acute kidney injury) Status: Resolved (2) Acute respiratory failure Status: Acute (3) Altered mental status Status: Acute (4) Diastolic CHF, acute on chronic Status: Acute (5) Pleural effusion, bilateral Status: Resolved (6) Pneumonia Status: Acute (7) Aortic valve vegetation Status: Acute - Assessment and Plan (Free Text) Assessment: afeb off antibiotics recent pneumonmi improved needs GT feedings- will cont to aspirate
--- NOTE | 2017-12-27 16:35 | CP.PCM.PN ---
Subjective - Date & Time of Evaluation Date of Evaluation: 12/27/17 Time of Evaluation: 10:30 - Subjective Subjective: F/U Respiratory Failure. awake , follows commands , on high flow O2 Objective - Vital Signs/Intake and Output Vital Signs (last 24 hours): Temp Pulse Resp BP Pulse Ox 97.4 F L 84 19 145/62 100 12/27/17 16:00 12/27/17 16:08 12/27/17 16:00 12/27/17 16:08 12/27/17 16:00 Intake and Output: 12/27/17 12/27/17 06:59 18:59 Intake Total 1164 690 Output Total 400 825 Balance 764 -135 - Medications Medications: Current Medications Apixaban (Eliquis) 2.5 mg PO Q12 [facility] PRN Reason: Protocol Last Admin: 12/27/17 09:12 Dose: 2.5 mg Cholecalciferol (Vitamin D) 5,000 intlu PO DAILY [facility] Last Admin: 12/27/17 09:14 Dose: 5,000 intlu Digoxin (Lanoxin) 0.125 mg IVP DAILY [facility] Last Admin: 12/27/17 09:13 Dose: 0.125 mg Diltiazem HCl (Cardizem) 30 mg PO Q6 [facility] Last Admin: 12/27/17 16:08 Dose: 30 mg Furosemide (Lasix) 40 mg IVP DAILY [facility] Last Admin: 12/27/17 09:13 Dose: 40 mg Lamotrigine (Lamictal) 100 mg PO Q12 [facility] Last Admin: 12/27/17 09:12 Dose: 100 mg Metoprolol Tartrate (Lopressor) 25 mg PO Q12 [facility] Last Admin: 12/27/17 09:13 Dose: 25 mg Pantoprazole Sodium (Protonix Ec Tab) 40 mg PO DAILY [facility] Last Admin: 12/27/17 09:14 Dose: 40 mg - Labs Labs: 12/27/17 04:20 12/27/17 04:20 PT 13.8 Seconds (9.8-13.1) H 12/14/17 07:10 INR 1.2 (0.9-1.2) 12/14/17 07:10 APTT 34.4 Seconds (25.6-37.1) 10/26/17 12:30 - Constitutional Appears: Chronically Ill - Head Exam Head Exam: NORMAL INSPECTION - Eye Exam Eye Exam: PERRL - ENT Exam Additional comments: NGT, on high flow O2 - Neck Exam Neck Exam: Normal Inspection - Respiratory Exam Respiratory Exam: Decreased Breath Sounds (at bases) - Cardiovascular Exam Cardiovascular Exam: Irregular Rhythm - GI/Abdominal Exam GI & Abdominal Exam: Soft, Normal Bowel Sounds - Extremities Exam Extremities Exam: Normal Inspection - Back Exam Additional comments: Sacral lesion healing - Neurological Exam Neurological Exam: Awake (follows commands, generalized weakness) - Psychiatric Exam Psychiatric exam: Normal Mood - Skin Skin Exam: Warm Assessment and Plan (1) Acute respiratory failure with hypoxia Status: Acute (2) Encephalopathy Status: Acute (3) Pleural effusion, bilateral Status: Resolved (4) Diastolic CHF, acute on chronic Status: Acute (5) Hx of seizure disorder Status: Chronic (6) A-fib Status: Chronic (7) CANDELARIA (acute kidney injury) Status: Resolved (8) Anemia Status: Chronic (9) Aortic valve vegetation Status: Acute (10) SUSAN (obstructive sleep apnea) Status: Chronic (11) Pulmonary hypertension Status: Chronic (12) Clostridium difficile infection Status: Acute (13) Hypertension Status: Acute - Assessment and Plan (Free Text) Plan: continue high flow O2, Cardizem , Lopressor, Lasix , Digoxin , Lamictal , PT and rest of treatment. ICU Time: 39 min.
[2017-12-27 20:35] LABS: ABG ALLEN TEST YES; ARTERIAL BLOOD GAS HCO3 41.1 mmol/L (21-28); ARTERIAL BLOOD GAS HEMOGLOBIN 9.5 g/dL (11.7-17.4); ARTERIAL BLOOD GAS O2 CAPACITY 13.2 mL/dL (16-24); ARTERIAL BLOOD GAS O2 CONTENT 13.2 ML/dL (15-23); ARTERIAL BLOOD GAS O2 SAT 99.9 % (95-98); ARTERIAL BLOOD GAS PCO2 52 mm/Hg (35-45); ARTERIAL BLOOD GAS PH 7.55 (7.35-7.45); ARTERIAL BLOOD GAS PO2 131 mm/Hg (80-100); ARTERIAL BLOOD GAS TCO2 47.1 mmol/L (22-28)
--- NOTE | 2017-12-27 22:54 | CP.PCM.PN ---
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 He will have CPAP at night time. no seizures are reported, and he is on a low dose of Lamictal 100 mg Q 12 hrs. EEG was performed and results are pending. VS are showing slightly high B.P. Objective - Vital Signs/Intake and Output Vital Signs (last 24 hours): Temp Pulse Resp BP Pulse Ox 97.4 F L 95 H 14 154/87 H 100 12/27/17 16:00 12/27/17 21:39 12/27/17 21:39 12/27/17 21:39 12/27/17 21:39 Intake and Output: 12/27/17 12/28/17 18:59 06:59 Intake Total 930 Output Total 825 Balance 105 - Medications Medications: Current Medications Apixaban (Eliquis) 2.5 mg PO Q12 [facility] PRN Reason: Protocol Last Admin: 12/27/17 21:39 Dose: 2.5 mg Cholecalciferol (Vitamin D) 5,000 intlu PO DAILY [facility] Last Admin: 12/27/17 09:14 Dose: 5,000 intlu Digoxin (Lanoxin) 0.125 mg IVP DAILY [facility] Last Admin: 12/27/17 09:13 Dose: 0.125 mg Diltiazem HCl (Cardizem) 30 mg PO Q6 [facility] Last Admin: 12/27/17 21:39 Dose: 30 mg Furosemide (Lasix) 40 mg IVP DAILY [facility] Last Admin: 12/27/17 09:13 Dose: 40 mg Lamotrigine (Lamictal) 100 mg PO Q12 [facility] Last Admin: 12/27/17 21:39 Dose: 100 mg Metoprolol Tartrate (Lopressor) 25 mg PO Q12 [facility] Last Admin: 12/27/17 21:38 Dose: 25 mg Pantoprazole Sodium (Protonix Ec Tab) 40 mg PO DAILY [facility] Last Admin: 12/27/17 09:14 Dose: 40 mg - Labs Labs: 12/27/17 04:20 12/27/17 04:20 PT 13.8 Seconds (9.8-13.1) H 12/14/17 07:10 INR 1.2 (0.9-1.2) 12/14/17 07:10 APTT 34.4 Seconds (25.6-37.1) 10/26/17 12:30 Assessment and Plan (1) CANDELARIA (acute kidney injury) Status: Resolved (2) Acute respiratory failure Status: Acute (3) Altered mental status Status: Acute (4) Pleural effusion, bilateral Status: Resolved (5) Pneumonia Status: Acute (6) Seizure disorder Status: Chronic (7) Encephalopathy Status: Acute
[2017-12-28 04:27] LABS: ABG ALLEN TEST YES; ARTERIAL BLOOD GAS HCO3 41.2 mmol/L (21-28); ARTERIAL BLOOD GAS HEMOGLOBIN 9.4 g/dL (11.7-17.4); ARTERIAL BLOOD GAS O2 SAT 100.2 % (95-98); ARTERIAL BLOOD GAS PCO2 60 mm/Hg (35-45); ARTERIAL BLOOD GAS PO2 109 mm/Hg (80-100); ARTERIAL BLOOD GAS TCO2 48.6 mmol/L (22-28)
[2017-12-28 05:19] LABS: HEMOGLOBIN 9.4 g/dL (12.0-18.0); MEAN CELL VOLUME 91.5 fl (80.0-94.0); MEAN CORPUSCULAR HEMOGLOBIN 30.4 pg (27.0-31.0); MEAN CORPUSCULAR HGB CONC 33.2 g/dL (33.0-37.0); RBC 3.1 Mil/uL (4.40-5.90); RED CELL DISTRIBUTION WIDTH 16.9 % (11.5-14.5); WHITE BLOOD COUNT 6.3 K/uL (4.8-10.8)
[2017-12-28 05:53] LABS: BLOOD UREA NITROGEN 23 mg/dl (9-20); CALCIUM 8.8 mg/dL (8.4-10.2); GFR AFRICAN-AMERICAN > 60; GFR NON-AFRICAN AMERICAN > 60
[2017-12-28] MEDS: Digoxin 500 mcg/2ml (0.5 mg/2ml) Inj IVP SCH (08:59)
[2017-12-28] MEDS: Cholecalciferol 1,000 INTLU TAB PO SCH (09:00)
[2017-12-28] MEDS: Pantoprazole 40 mg EC Tab PO SCH (09:00)
--- NOTE | 2017-12-28 15:34 | CP.PCM.PN ---
Subjective - Date & Time of Evaluation Date of Evaluation: 12/28/17 Time of Evaluation: 13:30 - Subjective Subjective: F/U Respiratory failure Awake , smiling , answer questions , follows commands Objective - Vital Signs/Intake and Output Vital Signs (last 24 hours): Temp Pulse Resp BP Pulse Ox 98.3 F 107 H 20 145/79 100 12/28/17 12:00 12/28/17 12:00 12/28/17 12:00 12/28/17 12:00 12/28/17 12:00 Intake and Output: 12/28/17 12/28/17 06:59 18:59 Intake Total 420 120 Output Total 700 Balance -280 120 - Medications Medications: Current Medications Apixaban (Eliquis) 2.5 mg PO Q12 [facility] PRN Reason: Protocol Last Admin: 12/28/17 09:01 Dose: 2.5 mg Cholecalciferol (Vitamin D) 5,000 intlu PO DAILY [facility] Last Admin: 12/28/17 09:00 Dose: 5,000 intlu Digoxin (Lanoxin) 0.125 mg IVP DAILY [facility] Last Admin: 12/28/17 08:59 Dose: 0.125 mg Diltiazem HCl (Cardizem) 30 mg PO Q6 [facility] Last Admin: 12/28/17 09:00 Dose: 30 mg Furosemide (Lasix) 40 mg IVP DAILY [facility] Last Admin: 12/28/17 09:00 Dose: 40 mg Lamotrigine (Lamictal) 100 mg PO Q12 [facility] Last Admin: 12/28/17 09:01 Dose: 100 mg Metoprolol Tartrate (Lopressor) 25 mg PO Q12 [facility] Last Admin: 12/28/17 11:13 Dose: 25 mg Pantoprazole Sodium (Protonix Ec Tab) 40 mg PO DAILY [facility] Last Admin: 12/28/17 09:00 Dose: 40 mg - Labs Labs: 12/28/17 04:38 12/28/17 04:38 PT 13.8 Seconds (9.8-13.1) H 12/14/17 07:10 INR 1.2 (0.9-1.2) 12/14/17 07:10 APTT 34.4 Seconds (25.6-37.1) 10/26/17 12:30 - Constitutional Appears: Chronically Ill - Head Exam Head Exam: NORMAL INSPECTION - Eye Exam Eye Exam: PERRL - ENT Exam Additional comments: NGT, on High flow O2 - Neck Exam Neck Exam: Normal Inspection - Respiratory Exam Respiratory Exam: Decreased Breath Sounds (at bases) - Cardiovascular Exam Cardiovascular Exam: Irregular Rhythm - GI/Abdominal Exam GI & Abdominal Exam: Soft, Normal Bowel Sounds - Extremities Exam Extremities Exam: Normal Inspection - Back Exam Additional comments: Sacral lesion healing - Neurological Exam Neurological Exam: Awake (follows commands, generalized weakness.) Additional comments: follows commands, no focal motor deficit , generalized weakness - Psychiatric Exam Additional comments: calm - Skin Skin Exam: Warm Assessment and Plan (1) Acute respiratory failure with hypoxia Status: Acute (2) Encephalopathy Status: Acute (3) Pleural effusion, bilateral Status: Resolved (4) Diastolic CHF, acute on chronic Status: Acute (5) Hx of seizure disorder Status: Chronic (6) A-fib Status: Chronic (7) CANDELARIA (acute kidney injury) Status: Resolved (8) Anemia Status: Chronic (9) Aortic valve vegetation Status: Acute (10) SUSAN (obstructive sleep apnea) Status: Chronic (11) Pulmonary hypertension Status: Chronic (12) Clostridium difficile infection Status: Acute (13) Hypertension Status: Acute - Assessment and Plan (Free Text) Plan: on BIPAP over night , High Flow O2 decreased 30 , continue rest of treatment and PT , f/u ABG am ICU Time: 40 min.
--- NOTE | 2017-12-28 18:58 | CP.PCM.PN ---
Subjective - Date & Time of Evaluation Date of Evaluation: 12/28/17 Time of Evaluation: 18:51 - Subjective Subjective: Patient is improving, his PCO2 is less elevated, he responded to Night time CPAP He is on high flow Oxygen Patient has no A.Fib documented, there is Seizures documented. V.S are showing normal values except for occasional High B.P. He is reported to be able to answer quietly questions of the treating crew , being oriented Objective - Vital Signs/Intake and Output Vital Signs (last 24 hours): Temp Pulse Resp BP Pulse Ox 97.7 F 70 18 162/72 H 100 12/28/17 16:00 12/28/17 18:00 12/28/17 18:00 12/28/17 18:00 12/28/17 18:00 Intake and Output: 12/28/17 12/28/17 06:59 18:59 Intake Total 420 1260 Output Total 700 1550 Balance -280 -290 - Medications Medications: Current Medications Apixaban (Eliquis) 2.5 mg PO Q12 [facility] PRN Reason: Protocol Last Admin: 12/28/17 09:01 Dose: 2.5 mg Cholecalciferol (Vitamin D) 5,000 intlu PO DAILY [facility] Last Admin: 12/28/17 09:00 Dose: 5,000 intlu Digoxin (Lanoxin) 0.125 mg IVP DAILY [facility] Last Admin: 12/28/17 08:59 Dose: 0.125 mg Diltiazem HCl (Cardizem) 30 mg PO Q6 [facility] Last Admin: 12/28/17 16:56 Dose: 30 mg Furosemide (Lasix) 40 mg IVP DAILY [facility] Last Admin: 12/28/17 09:00 Dose: 40 mg Lamotrigine (Lamictal) 100 mg PO Q12 [facility] Last Admin: 12/28/17 09:01 Dose: 100 mg Metoprolol Tartrate (Lopressor) 25 mg PO Q12 [facility] Last Admin: 12/28/17 11:13 Dose: 25 mg Pantoprazole Sodium (Protonix Ec Tab) 40 mg PO DAILY [facility] Last Admin: 12/28/17 09:00 Dose: 40 mg - Labs Labs: 12/28/17 04:38 12/28/17 04:38 PT 13.8 Seconds (9.8-13.1) H 12/14/17 07:10 INR 1.2 (0.9-1.2) 12/14/17 07:10 APTT 34.4 Seconds (25.6-37.1) 10/26/17 12:30 Assessment and Plan (1) CANDELARIA (acute kidney injury) Status: Resolved (2) Acute respiratory failure Status: Acute (3) Altered mental status Status: Acute (4) Pleural effusion, bilateral Status: Resolved (5) Pneumonia Status: Acute (6) Seizure disorder Status: Chronic (7) Encephalopathy Status: Acute
[2017-12-29 05:04] LABS: ABG ALLEN TEST YES
[2017-12-29 05:27] LABS: HEMOGLOBIN 9.1 g/dL (12.0-18.0); MEAN CELL VOLUME 91.6 fl (80.0-94.0); MEAN CORPUSCULAR HEMOGLOBIN 29.8 pg (27.0-31.0); MEAN CORPUSCULAR HGB CONC 32.5 g/dL (33.0-37.0); RBC 3.06 Mil/uL (4.40-5.90); RED CELL DISTRIBUTION WIDTH 16.7 % (11.5-14.5)
[2017-12-29 06:15] LABS: BLOOD UREA NITROGEN 27 mg/dl (9-20); CALCIUM 8.7 mg/dL (8.4-10.2); GFR AFRICAN-AMERICAN > 60; GFR NON-AFRICAN AMERICAN > 60
[2017-12-29] MEDS: Digoxin 500 mcg/2ml (0.5 mg/2ml) Inj IVP SCH (08:50)
[2017-12-29] MEDS: Pantoprazole 40 mg EC Tab PO SCH (08:50)
[2017-12-29] MEDS: Cholecalciferol 1,000 INTLU TAB PO SCH (08:55)
--- NOTE | 2017-12-29 13:56 | CP.PCM.PN ---
Subjective - Date & Time of Evaluation Date of Evaluation: 12/29/17 Time of Evaluation: 08:00 - Subjective Subjective: no fever or leukocytosis weak bedridden Needs GT Placement discussed with Dr Cole Objective - Vital Signs/Intake and Output Vital Signs (last 24 hours): Temp Pulse Resp BP Pulse Ox 98.3 F 77 13 127/69 100 12/29/17 12:00 12/29/17 12:00 12/29/17 12:00 12/29/17 12:00 12/29/17 12:00 Intake and Output: 12/29/17 12/29/17 06:59 18:59 Intake Total 1030 200 Balance 1030 200 - Medications Medications: Current Medications Apixaban (Eliquis) 2.5 mg PO Q12 [facility] PRN Reason: Protocol Last Admin: 12/28/17 20:46 Dose: 2.5 mg Cholecalciferol (Vitamin D) 5,000 intlu PO DAILY [facility] Last Admin: 12/28/17 09:00 Dose: 5,000 intlu Digoxin (Lanoxin) 0.125 mg IVP DAILY [facility] Last Admin: 12/28/17 08:59 Dose: 0.125 mg Diltiazem HCl (Cardizem) 30 mg PO Q6 [facility] Last Admin: 12/29/17 03:44 Dose: 30 mg Furosemide (Lasix) 40 mg IVP DAILY [facility] Last Admin: 12/28/17 09:00 Dose: 40 mg Lamotrigine (Lamictal) 100 mg PO Q12 [facility] Last Admin: 12/28/17 20:46 Dose: 100 mg Metoprolol Tartrate (Lopressor) 25 mg PO Q12 [facility] Last Admin: 12/28/17 20:48 Dose: 25 mg Pantoprazole Sodium (Protonix Ec Tab) 40 mg PO DAILY [facility] Last Admin: 12/28/17 09:00 Dose: 40 mg - Labs Labs: 12/29/17 04:00 12/29/17 05:28 PT 13.8 Seconds (9.8-13.1) H 12/14/17 07:10 INR 1.2 (0.9-1.2) 12/14/17 07:10 APTT 34.4 Seconds (25.6-37.1) 10/26/17 12:30 - Constitutional Appears: Non-toxic, Cachectic, Chronically Ill - Head Exam Head Exam: NORMOCEPHALIC - Eye Exam Eye Exam: absent: Scleral icterus - ENT Exam ENT Exam: Mucous Membranes Dry - Neck Exam Neck Exam: absent: Lymphadenopathy - Respiratory Exam Respiratory Exam: Decreased Breath Sounds - Cardiovascular Exam Cardiovascular Exam: REGULAR RHYTHM - GI/Abdominal Exam GI & Abdominal Exam: Distended, Soft - Rectal Exam Rectal Exam: Deferred - Exam Exam: NORMAL INSPECTION - Extremities Exam Extremities Exam: absent: Pedal Edema - Back Exam Back Exam: absent: CVA tenderness (L), CVA tenderness (R) - Neurological Exam Neurological Exam: Alert, Awake, CN II-XII Intact Assessment and Plan (1) CANDELARIA (acute kidney injury) Status: Resolved (2) Acute respiratory failure Status: Acute (3) Altered mental status Status: Acute (4) Diastolic CHF, acute on chronic Status: Acute (5) Pleural effusion, bilateral Status: Resolved (6) Pneumonia Status: Acute (7) Aortic valve vegetation Status: Acute
--- NOTE | 2017-12-29 16:59 | CP.PCM.PN ---
Subjective - Date & Time of Evaluation Date of Evaluation: 12/29/17 Time of Evaluation: 15:50 - Subjective Subjective: F/U Respiratory Failure. awake , answer questions , follows commands Objective - Vital Signs/Intake and Output Vital Signs (last 24 hours): Temp Pulse Resp BP Pulse Ox 98 F 82 18 147/57 L 100 12/29/17 16:00 12/29/17 16:12 12/29/17 16:12 12/29/17 16:12 12/29/17 16:12 Intake and Output: 12/29/17 12/29/17 06:59 18:59 Intake Total 1030 300 Balance 1030 300 - Medications Medications: Current Medications Apixaban (Eliquis) 2.5 mg PO Q12 [facility] PRN Reason: Protocol Last Admin: 12/29/17 08:45 Dose: 2.5 mg Cholecalciferol (Vitamin D) 5,000 intlu PO DAILY [facility] Last Admin: 12/29/17 08:55 Dose: 5,000 intlu Digoxin (Lanoxin) 0.125 mg IVP DAILY [facility] Last Admin: 12/29/17 08:50 Dose: 0.125 mg Diltiazem HCl (Cardizem) 30 mg PO Q6 [facility] Last Admin: 12/29/17 16:12 Dose: 30 mg Furosemide (Lasix) 40 mg IVP DAILY [facility] Last Admin: 12/29/17 14:46 Dose: 40 mg Lamotrigine (Lamictal) 100 mg PO Q12 [facility] Last Admin: 12/29/17 08:50 Dose: 100 mg Metoprolol Tartrate (Lopressor) 25 mg PO Q12 [facility] Last Admin: 12/29/17 08:50 Dose: 25 mg Pantoprazole Sodium (Protonix Ec Tab) 40 mg PO DAILY [facility] Last Admin: 12/29/17 08:50 Dose: 40 mg - Labs Labs: 12/29/17 04:00 12/29/17 05:28 PT 13.8 Seconds (9.8-13.1) H 12/14/17 07:10 INR 1.2 (0.9-1.2) 12/14/17 07:10 APTT 34.4 Seconds (25.6-37.1) 10/26/17 12:30 - Constitutional Appears: Chronically Ill - Head Exam Head Exam: NORMAL INSPECTION - Eye Exam Eye Exam: PERRL - ENT Exam Additional comments: NGT, High flow O2 - Neck Exam Neck Exam: Normal Inspection - Respiratory Exam Respiratory Exam: Decreased Breath Sounds (at bases) - Cardiovascular Exam Cardiovascular Exam: Irregular Rhythm - GI/Abdominal Exam GI & Abdominal Exam: Soft, Normal Bowel Sounds - Extremities Exam Extremities Exam: Normal Inspection - Back Exam Additional comments: Sacral ulcer healing - Neurological Exam Neurological Exam: Awake Additional comments: Follows commands, generalized weakness. - Psychiatric Exam Psychiatric exam: Normal Mood - Skin Skin Exam: Warm Assessment and Plan (1) Acute respiratory failure with hypoxia Status: Acute (2) Encephalopathy Status: Acute (3) Pleural effusion, bilateral Status: Resolved (4) Diastolic CHF, acute on chronic Status: Acute (5) Hx of seizure disorder Status: Chronic (6) A-fib Status: Chronic (7) CANDELARIA (acute kidney injury) Status: Resolved (8) Anemia Status: Chronic (9) Aortic valve vegetation Status: Chronic (10) SUSAN (obstructive sleep apnea) Status: Chronic (11) Pulmonary hypertension Status: Chronic (12) Clostridium difficile infection Status: Resolved (13) Hypertension Status: Chronic - Assessment and Plan (Free Text) Plan: continue Cardizem , Lopressor , Lasix , Lamictal ,Eliquis , PT , mucoid yellowish stools reported by nurses , f/u EEG ICU Time: 38 min.
--- NOTE | 2017-12-30 00:58 | CP.PCM.PN ---
Subjective - Date & Time of Evaluation Date of Evaluation: 12/29/17 Time of Evaluation: 21:45 - Subjective Subjective: His labs are showing Hypercarbia, he is suffering from respiratory insufficiency and needs further intensive care help. He is not reported having seizures and the insists on reducing the Lamictal to a low dose, that is short of treating his seizure disorder, She is objecting Carbidopa/ Levodopa to help his muscles of Respiration due to his muscle rigidity related to his Respiratory failure and his extra pyramidal Rigidity that occurs on and off and is reducing his breathing capacity and his rigid reduced chest muscle movements. She is not consenting for a gastric tube. Patient is reported to be interactive and answering simple questions. Normal Vital Signs. Objective - Vital Signs/Intake and Output Vital Signs (last 24 hours): Temp Pulse Resp BP Pulse Ox 98.5 F 77 22 141/69 100 12/29/17 21:00 12/29/17 22:36 12/29/17 21:07 12/29/17 21:07 12/29/17 21:07 Intake and Output: 12/29/17 12/30/17 18:59 06:59 Intake Total 1540 200 Output Total 1000 Balance 540 200 - Medications Medications: Current Medications Apixaban (Eliquis) 2.5 mg PO Q12 [facility] PRN Reason: Protocol Last Admin: 12/29/17 21:07 Dose: 2.5 mg Cholecalciferol (Vitamin D) 5,000 intlu PO DAILY [facility] Last Admin: 12/29/17 08:55 Dose: 5,000 intlu Digoxin (Lanoxin) 0.125 mg IVP DAILY [facility] Last Admin: 12/29/17 08:50 Dose: 0.125 mg Diltiazem HCl (Cardizem) 30 mg PO Q6 [facility] Last Admin: 12/29/17 21:07 Dose: 30 mg Furosemide (Lasix) 40 mg IVP DAILY [facility] Last Admin: 12/29/17 14:46 Dose: 40 mg Lamotrigine (Lamictal) 100 mg PO Q12 [facility] Last Admin: 12/29/17 21:07 Dose: 100 mg Metoprolol Tartrate (Lopressor) 25 mg PO Q12 [facility] Last Admin: 12/29/17 21:07 Dose: 25 mg Pantoprazole Sodium (Protonix Ec Tab) 40 mg PO DAILY [facility] Last Admin: 12/29/17 08:50 Dose: 40 mg - Labs Labs: 12/29/17 04:00 12/29/17 05:28 PT 13.8 Seconds (9.8-13.1) H 12/14/17 07:10 INR 1.2 (0.9-1.2) 12/14/17 07:10 APTT 34.4 Seconds (25.6-37.1) 10/26/17 12:30 Assessment and Plan (1) CANDELARIA (acute kidney injury) Status: Resolved (2) Acute respiratory failure Status: Acute (3) Altered mental status Status: Acute (4) Pleural effusion, bilateral Status: Resolved (5) Pneumonia Status: Acute (6) Seizure disorder Status: Chronic (7) Encephalopathy Status: Acute
[2017-12-30 05:31] LABS: HEMOGLOBIN 10.1 g/dL (12.0-18.0); MEAN CELL VOLUME 92.1 fl (80.0-94.0); MEAN CORPUSCULAR HEMOGLOBIN 29.8 pg (27.0-31.0); MEAN CORPUSCULAR HGB CONC 32.3 g/dL (33.0-37.0); RBC 3.38 Mil/uL (4.40-5.90); RED CELL DISTRIBUTION WIDTH 16.8 % (11.5-14.5); WHITE BLOOD COUNT 5.7 K/uL (4.8-10.8)
[2017-12-30 05:39] LABS: ALB/GLOB RATIO 0.8 (1.0-2.1); ALBUMIN 3.1 g/dL (3.5-5.0); ALT/SGPT 28 U/L (21-72); AST/SGOT 30 U/L (17-59); BLOOD UREA NITROGEN 25 mg/dl (9-20); GFR AFRICAN-AMERICAN > 60; GFR NON-AFRICAN AMERICAN > 60
[2017-12-30 05:46] LABS: ABG ALLEN TEST YES; ARTERIAL BLOOD GAS HCO3 41.1 mmol/L (21-28); ARTERIAL BLOOD GAS HEMOGLOBIN 9.4 g/dL (11.7-17.4); ARTERIAL BLOOD GAS O2 SAT 100.1 % (95-98); ARTERIAL BLOOD GAS PCO2 58 mm/Hg (35-45); ARTERIAL BLOOD GAS PH 7.51 (7.35-7.45); ARTERIAL BLOOD GAS PO2 115 mm/Hg (80-100); ARTERIAL BLOOD GAS TCO2 48.1 mmol/L (22-28)
[2017-12-30] MEDS: Digoxin 500 mcg/2ml (0.5 mg/2ml) Inj IVP SCH (09:17)
[2017-12-30] MEDS: Cholecalciferol 1,000 INTLU TAB PO SCH (09:18)
[2017-12-30] MEDS: Pantoprazole 40 mg EC Tab PO SCH (09:18)
--- NOTE | 2017-12-30 16:04 | CP.PCM.PN ---
Subjective - Date & Time of Evaluation Date of Evaluation: 12/30/17 Time of Evaluation: 10:00 - Subjective Subjective: F/U Respiratory Failure awake, answering questions , follows commands Objective - Vital Signs/Intake and Output Vital Signs (last 24 hours): Temp Pulse Resp BP Pulse Ox 97.9 F 80 24 141/60 99 12/30/17 12:00 12/30/17 13:00 12/30/17 13:00 12/30/17 13:00 12/30/17 13:00 Intake and Output: 12/30/17 12/30/17 06:59 18:59 Intake Total 200 380 Balance 200 380 - Medications Medications: Current Medications Apixaban (Eliquis) 2.5 mg PO Q12 [facility] PRN Reason: Protocol Last Admin: 12/30/17 09:17 Dose: 2.5 mg Diltiazem HCl (Cardizem) 30 mg PO Q6 [facility] Last Admin: 12/30/17 09:16 Dose: 30 mg Furosemide (Lasix) 40 mg IVP DAILY [facility] Last Admin: 12/30/17 09:17 Dose: 40 mg Lamotrigine (Lamictal) 100 mg PO Q12 [facility] Last Admin: 12/30/17 09:17 Dose: 100 mg - Labs Labs: 12/30/17 04:20 12/30/17 04:20 PT 13.8 Seconds (9.8-13.1) H 12/14/17 07:10 INR 1.2 (0.9-1.2) 12/14/17 07:10 APTT 34.4 Seconds (25.6-37.1) 10/26/17 12:30 - Constitutional Appears: Chronically Ill - Head Exam Head Exam: NORMAL INSPECTION - Eye Exam Eye Exam: PERRL - ENT Exam Additional comments: NGT, High flow O2. - Neck Exam Neck Exam: Normal Inspection - Respiratory Exam Respiratory Exam: Decreased Breath Sounds (at bases) - Cardiovascular Exam Cardiovascular Exam: Irregular Rhythm - GI/Abdominal Exam GI & Abdominal Exam: Soft, Normal Bowel Sounds - Extremities Exam Extremities Exam: Normal Inspection - Back Exam Additional comments: Sacral tear healing - Neurological Exam Neurological Exam: Awake Additional comments: Follows commands, generalized weakness. - Psychiatric Exam Additional comments: calm - Skin Skin Exam: Warm Assessment and Plan (1) Acute respiratory failure with hypoxia Status: Acute (2) Encephalopathy Status: Acute (3) Pleural effusion, bilateral Status: Resolved (4) Diastolic CHF, acute on chronic Status: Acute (5) Hx of seizure disorder Status: Chronic (6) A-fib Status: Chronic (7) CANDELARIA (acute kidney injury) Status: Resolved (8) Anemia Status: Chronic (9) Aortic valve vegetation Status: Chronic (10) SUSAN (obstructive sleep apnea) Status: Chronic (11) Pulmonary hypertension Status: Chronic (12) Clostridium difficile infection Status: Resolved (13) Hypertension Status: Chronic - Assessment and Plan (Free Text) Plan: continue current treatment , high flow O2 , BIPAP overnight , incontinent of mucoidy stools , f/u stool studies, previous C Diff x 2 negative , Digoxin level 1.7 normal , f/u GI consult , f/u EEG , continue PT ICU Time: 38 min.
--- NOTE | 2017-12-31 02:16 | CP.PCM.PN ---
Subjective - Date & Time of Evaluation Date of Evaluation: 12/30/17 Time of Evaluation: 21:55 - Subjective Subjective: He is reported to be feeding Puree. He is not reported to have any Seizures clinically. He is on Lamictal 100 mg Q 12hrs. Normal Vital Signs. He has Hypercarbia. Objective - Vital Signs/Intake and Output Vital Signs (last 24 hours): Temp Pulse Resp BP Pulse Ox 98.5 F 70 24 158/68 H 100 12/31/17 00:05 12/31/17 00:16 12/31/17 00:05 12/31/17 00:05 12/31/17 00:05 Intake and Output: 12/30/17 12/31/17 18:59 06:59 Intake Total 620 620 Output Total 0 Balance 620 620 - Medications Medications: Current Medications Cholecalciferol (Vitamin D) 5,000 intlu PO DAILY [facility] Digoxin (Lanoxin) 0.125 mg IVP DAILY [facility] Diltiazem HCl (Cardizem) 30 mg PO Q6 [facility] Last Admin: 12/30/17 21:10 Dose: 30 mg Furosemide (Lasix) 40 mg IVP DAILY [facility] Last Admin: 12/30/17 09:17 Dose: 40 mg Lamotrigine (Lamictal) 100 mg PO Q12 [facility] Last Admin: 12/30/17 21:16 Dose: 100 mg Metoprolol Tartrate (Lopressor) 25 mg PO Q12 [facility] Last Admin: 12/30/17 21:16 Dose: 25 mg Pantoprazole Sodium (Protonix Ec Tab) 40 mg PO DAILY [facility] - Labs Labs: 12/30/17 04:20 12/30/17 04:20 PT 13.8 Seconds (9.8-13.1) H 12/14/17 07:10 INR 1.2 (0.9-1.2) 12/14/17 07:10 APTT 34.4 Seconds (25.6-37.1) 10/26/17 12:30 Assessment and Plan (1) CANDELARIA (acute kidney injury) Status: Resolved (2) Acute respiratory failure Status: Acute (3) Altered mental status Status: Acute (4) Pleural effusion, bilateral Status: Resolved (5) Pneumonia Status: Acute (6) Seizure disorder Status: Chronic (7) Encephalopathy Status: Acute
[2017-12-31 05:17] LABS: BASO % 0.5 % (0.0-2.0); EOS # 0.2 K/uL (0.0-0.7); EOS % 2.7 % (0.0-4.0); HEMOGLOBIN 8.9 g/dL (12.0-18.0); LYMPH % 14.8 % (20.0-40.0); MEAN CELL VOLUME 91.3 fl (80.0-94.0); MEAN CORPUSCULAR HEMOGLOBIN 29.3 pg (27.0-31.0); MEAN CORPUSCULAR HGB CONC 32.1 g/dL (33.0-37.0); MEAN PLATELET VOLUME 7.1 fl (7.2-11.7); MONO # 0.7 K/uL (0.0-0.8); MONO % 10.9 % (0.0-10.0); NEUT # 4.8 K/uL (1.8-7.0); NEUT % 71.1 % (50.0-75.0); RBC 3.05 Mil/uL (4.40-5.90); RED CELL DISTRIBUTION WIDTH 16.9 % (11.5-14.5); WHITE BLOOD COUNT 6.8 K/uL (4.8-10.8)
[2017-12-31 05:38] LABS: ALB/GLOB RATIO 0.8 (1.0-2.1); ALBUMIN 3.2 g/dL (3.5-5.0); ALT/SGPT 24 U/L (21-72); AST/SGOT 25 U/L (17-59); BLOOD UREA NITROGEN 29 mg/dl (9-20); CALCIUM 8.7 mg/dL (8.4-10.2); GFR AFRICAN-AMERICAN > 60; GFR NON-AFRICAN AMERICAN > 60
[2017-12-31 05:54] LABS: ARTERIAL BLOOD GAS HCO3 38.5 mmol/L (21-28); ARTERIAL BLOOD GAS HEMOGLOBIN 12.8 g/dL (11.7-17.4); ARTERIAL BLOOD GAS O2 CAPACITY 17.5 mL/dL (16-24); ARTERIAL BLOOD GAS O2 CONTENT 17.4 ML/dL (15-23); ARTERIAL BLOOD GAS O2 SAT 99.2 % (95-98); ARTERIAL BLOOD GAS PCO2 59 mm/Hg (35-45); ARTERIAL BLOOD GAS PH 7.48 (7.35-7.45); ARTERIAL BLOOD GAS PO2 96 mm/Hg (80-100); ARTERIAL BLOOD GAS TCO2 45.7 mmol/L (22-28)
[2017-12-31] MEDS: Digoxin 500 mcg/2ml (0.5 mg/2ml) Inj IVP SCH (09:02)
[2017-12-31] MEDS: Pantoprazole 40 mg EC Tab PO SCH (09:03)
[2017-12-31] MEDS: Cholecalciferol 1,000 INTLU TAB PO SCH (09:03)
[2017-12-31 10:14] LABS: ABG ALLEN TEST YES; ARTERIAL BLOOD GAS HCO3 38.5 mmol/L (21-28); ARTERIAL BLOOD GAS HEMOGLOBIN 12.8 g/dL (11.7-17.4); ARTERIAL BLOOD GAS PCO2 59 mm/Hg (35-45); ARTERIAL BLOOD GAS PH 7.48 (7.35-7.45); ARTERIAL BLOOD GAS PO2 96 mm/Hg (80-100)
[2017-12-31 10:15] LABS: ARTERIAL BLOOD GAS FIO2 30 %; ARTERIAL BLOOD GAS O2 SAT 99.2 % (95-98); ARTERIAL BLOOD GAS TCO2 45.7 mmol/L (22-28)
--- NOTE | 2017-12-31 10:23 | CP.PCM.PN ---
Subjective - Date & Time of Evaluation Date of Evaluation: 12/30/17 Time of Evaluation: 11:00 - Subjective Subjective: more awake and responsive Objective - Vital Signs/Intake and Output Vital Signs (last 24 hours): Temp Pulse Resp BP Pulse Ox 98.9 F 90 24 152/65 H 100 12/31/17 08:00 12/31/17 09:03 12/31/17 09:01 12/31/17 09:03 12/31/17 09:01 Intake and Output: 12/31/17 12/31/17 06:59 18:59 Intake Total 1000 Output Total 600 Balance 400 - Medications Medications: Current Medications Cholecalciferol (Vitamin D) 5,000 intlu PO DAILY [facility] Last Admin: 12/31/17 09:03 Dose: 5,000 intlu Digoxin (Lanoxin) 0.125 mg IVP DAILY [facility] Last Admin: 12/31/17 09:02 Dose: 0.125 mg Diltiazem HCl (Cardizem) 30 mg PO Q6 [facility] Last Admin: 12/31/17 09:01 Dose: 30 mg Furosemide (Lasix) 40 mg IVP DAILY [facility] Last Admin: 12/31/17 09:02 Dose: 40 mg Lamotrigine (Lamictal) 100 mg PO Q12 [facility] Last Admin: 12/31/17 09:02 Dose: 100 mg Metoprolol Tartrate (Lopressor) 25 mg PO Q12 [facility] Last Admin: 12/31/17 09:03 Dose: 25 mg Pantoprazole Sodium (Protonix Ec Tab) 40 mg PO DAILY [facility] Last Admin: 12/31/17 09:03 Dose: 40 mg - Labs Labs: 12/31/17 04:20 12/31/17 04:20 PT 13.8 Seconds (9.8-13.1) H 12/14/17 07:10 INR 1.2 (0.9-1.2) 12/14/17 07:10 APTT 34.4 Seconds (25.6-37.1) 10/26/17 12:30 - Constitutional Appears: Well - Head Exam Head Exam: ATRAUMATIC, NORMAL INSPECTION, NORMOCEPHALIC - Eye Exam Eye Exam: EOMI, Normal appearance, PERRL Pupil Exam: NORMAL ACCOMODATION, PERRL - ENT Exam ENT Exam: Mucous Membranes Moist, Normal Exam - Neck Exam Neck Exam: Full ROM, Normal Inspection. absent: Lymphadenopathy - Respiratory Exam Respiratory Exam: Clear to Ausculation Bilateral, NORMAL BREATHING PATTERN - Cardiovascular Exam Cardiovascular Exam: Irregular Rhythm, +S1, +S2, Murmur - GI/Abdominal Exam GI & Abdominal Exam: Soft, Normal Bowel Sounds. absent: Tenderness - Extremities Exam Extremities Exam: Full ROM, Normal Capillary Refill, Normal Inspection. absent : Joint Swelling, Pedal Edema - Back Exam Back Exam: NORMAL INSPECTION - Neurological Exam Neurological Exam: Alert, Awake, CN II-XII Intact, Oriented x3 - Psychiatric Exam Psychiatric exam: Normal Affect, Normal Mood - Skin Skin Exam: Dry, Intact, Normal Color, Warm Assessment and Plan (1) A-fib Status: Chronic (2) Acute on chronic diastolic (congestive) heart failure Status: Chronic (3) Acute respiratory failure with hypoxia Status: Acute (4) Altered mental status Status: Acute (5) HTN (hypertension) Status: Chronic (6) Seizure disorder Status: Chronic (7) CANDELARIA (acute kidney injury) Status: Resolved (8) Encephalopathy Status: Acute (9) Hypothermia Status: Acute (10) Pleural effusion, bilateral Status: Resolved (11) Supratherapeutic international normalized ratio (INR) Status: Acute (12) Acute decompensated heart failure Status: Acute (13) Atrial fibrillation with RVR Status: Acute
--- NOTE | 2017-12-31 10:24 | CP.PCM.PN ---
Subjective - Date & Time of Evaluation Date of Evaluation: 12/31/17 Time of Evaluation: 10:23 - Subjective Subjective: stable HR variable Objective - Vital Signs/Intake and Output Vital Signs (last 24 hours): Temp Pulse Resp BP Pulse Ox 98.9 F 90 24 152/65 H 100 12/31/17 08:00 12/31/17 09:03 12/31/17 09:01 12/31/17 09:03 12/31/17 09:01 Intake and Output: 12/31/17 12/31/17 06:59 18:59 Intake Total 1000 Output Total 600 Balance 400 - Medications Medications: Current Medications Cholecalciferol (Vitamin D) 5,000 intlu PO DAILY [facility] Last Admin: 12/31/17 09:03 Dose: 5,000 intlu Digoxin (Lanoxin) 0.125 mg IVP DAILY [facility] Last Admin: 12/31/17 09:02 Dose: 0.125 mg Diltiazem HCl (Cardizem) 30 mg PO Q6 [facility] Last Admin: 12/31/17 09:01 Dose: 30 mg Furosemide (Lasix) 40 mg IVP DAILY [facility] Last Admin: 12/31/17 09:02 Dose: 40 mg Lamotrigine (Lamictal) 100 mg PO Q12 [facility] Last Admin: 12/31/17 09:02 Dose: 100 mg Metoprolol Tartrate (Lopressor) 25 mg PO Q12 [facility] Last Admin: 12/31/17 09:03 Dose: 25 mg Pantoprazole Sodium (Protonix Ec Tab) 40 mg PO DAILY [facility] Last Admin: 12/31/17 09:03 Dose: 40 mg - Labs Labs: 12/31/17 04:20 12/31/17 04:20 PT 13.8 Seconds (9.8-13.1) H 12/14/17 07:10 INR 1.2 (0.9-1.2) 12/14/17 07:10 APTT 34.4 Seconds (25.6-37.1) 10/26/17 12:30 - Constitutional Appears: Well - Head Exam Head Exam: ATRAUMATIC, NORMAL INSPECTION, NORMOCEPHALIC - Eye Exam Eye Exam: EOMI, Normal appearance, PERRL Pupil Exam: NORMAL ACCOMODATION, PERRL - ENT Exam ENT Exam: Mucous Membranes Moist, Normal Exam - Neck Exam Neck Exam: Full ROM, Normal Inspection. absent: Lymphadenopathy - Respiratory Exam Respiratory Exam: Clear to Ausculation Bilateral, NORMAL BREATHING PATTERN - Cardiovascular Exam Cardiovascular Exam: Irregular Rhythm, +S1, +S2, Murmur - GI/Abdominal Exam GI & Abdominal Exam: Soft, Normal Bowel Sounds. absent: Tenderness - Extremities Exam Extremities Exam: Full ROM, Normal Capillary Refill, Normal Inspection. absent : Joint Swelling, Pedal Edema - Back Exam Back Exam: NORMAL INSPECTION - Neurological Exam Neurological Exam: Alert, Awake, CN II-XII Intact - Psychiatric Exam Psychiatric exam: Normal Affect, Normal Mood - Skin Skin Exam: Dry, Intact, Normal Color, Warm Assessment and Plan (1) A-fib Status: Chronic (2) Acute on chronic diastolic (congestive) heart failure Status: Chronic (3) Acute respiratory failure with hypoxia Status: Acute (4) Altered mental status Status: Acute (5) HTN (hypertension) Status: Chronic (6) Seizure disorder Status: Chronic (7) CANDELARIA (acute kidney injury) Status: Resolved (8) Encephalopathy Status: Acute (9) Hypothermia Status: Acute (10) Pleural effusion, bilateral Status: Resolved (11) Supratherapeutic international normalized ratio (INR) Status: Acute (12) Acute decompensated heart failure Status: Acute (13) Atrial fibrillation with RVR Status: Acute
--- NOTE | 2017-12-31 15:05 | CP.PCM.PN ---
Subjective - Date & Time of Evaluation Date of Evaluation: 12/31/17 Time of Evaluation: 11:50 - Subjective Subjective: F/U Respiratory Failure. Pt with eyes open, follows commands Objective - Vital Signs/Intake and Output Vital Signs (last 24 hours): Temp Pulse Resp BP Pulse Ox 99.2 F 75 23 134/71 100 12/31/17 12:00 12/31/17 12:00 12/31/17 13:08 12/31/17 12:00 12/31/17 12:00 Intake and Output: 12/31/17 12/31/17 06:59 18:59 Intake Total 1000 240 Output Total 600 Balance 400 240 - Medications Medications: Current Medications Cholecalciferol (Vitamin D) 5,000 intlu PO DAILY [facility] Last Admin: 12/31/17 09:03 Dose: 5,000 intlu Digoxin (Lanoxin) 0.125 mg IVP DAILY [facility] Last Admin: 12/31/17 09:02 Dose: 0.125 mg Diltiazem HCl (Cardizem) 30 mg PO Q6 [facility] Last Admin: 12/31/17 09:01 Dose: 30 mg Furosemide (Lasix) 40 mg IVP DAILY [facility] Last Admin: 12/31/17 09:02 Dose: 40 mg Lamotrigine (Lamictal) 100 mg PO Q12 [facility] Last Admin: 12/31/17 09:02 Dose: 100 mg Metoprolol Tartrate (Lopressor) 25 mg PO Q12 [facility] Last Admin: 12/31/17 09:03 Dose: 25 mg Pantoprazole Sodium (Protonix Ec Tab) 40 mg PO DAILY [facility] Last Admin: 12/31/17 09:03 Dose: 40 mg - Labs Labs: 12/31/17 04:20 12/31/17 04:20 PT 13.8 Seconds (9.8-13.1) H 12/14/17 07:10 INR 1.2 (0.9-1.2) 12/14/17 07:10 APTT 34.4 Seconds (25.6-37.1) 10/26/17 12:30 - Constitutional Appears: Chronically Ill - Eye Exam Eye Exam: PERRL - ENT Exam Additional comments: NGT, on High flow O2. - Neck Exam Neck Exam: Normal Inspection - Respiratory Exam Respiratory Exam: Decreased Breath Sounds (at bases) - Cardiovascular Exam Cardiovascular Exam: Irregular Rhythm - GI/Abdominal Exam GI & Abdominal Exam: Soft, Normal Bowel Sounds - Extremities Exam Extremities Exam: Normal Inspection - Back Exam Additional comments: Sacral tear healing - Neurological Exam Neurological Exam: Awake Additional comments: Follows commands, generalized weakness. - Skin Skin Exam: Warm Assessment and Plan (1) Acute respiratory failure with hypoxia Status: Acute (2) Encephalopathy Status: Acute (3) Pleural effusion, bilateral Status: Resolved (4) Diastolic CHF, acute on chronic Status: Acute (5) Hx of seizure disorder Status: Chronic (6) A-fib Status: Chronic (7) CANDELARIA (acute kidney injury) Status: Resolved (8) Anemia Status: Chronic (9) Aortic valve vegetation Status: Chronic (10) SUSAN (obstructive sleep apnea) Status: Chronic (11) Pulmonary hypertension Status: Chronic (12) Clostridium difficile infection Status: Resolved (13) Hypertension Status: Chronic - Assessment and Plan (Free Text) Plan: Stool & oval Parasite= Negative. Continue high flow O2, and rest of Tx. ICU Time: 40 min.
[2017-12-31] MEDS ORDERED: Chlorhexidine Gluconate 1 APPL/PKT TP ONE (22:54)
[2018-01-01 05:09] LABS: ABG ALLEN TEST YES; ARTERIAL BLOOD GAS HCO3 41.6 mmol/L (21-28); ARTERIAL BLOOD GAS HEMOGLOBIN 9.3 g/dL (11.7-17.4); ARTERIAL BLOOD GAS O2 CAPACITY 12.8 mL/dL (16-24); ARTERIAL BLOOD GAS O2 CONTENT 12.8 ML/dL (15-23); ARTERIAL BLOOD GAS O2 SAT 99.8 % (95-98); ARTERIAL BLOOD GAS PCO2 59 mm/Hg (35-45); ARTERIAL BLOOD GAS PH 7.51 (7.35-7.45); ARTERIAL BLOOD GAS PO2 99 mm/Hg (80-100); ARTERIAL BLOOD GAS TCO2 48.9 mmol/L (22-28)
[2018-01-01 05:25] LABS: HEMOGLOBIN 8.9 g/dL (12.0-18.0); MEAN CELL VOLUME 90.8 fl (80.0-94.0); MEAN CORPUSCULAR HEMOGLOBIN 30.1 pg (27.0-31.0); MEAN CORPUSCULAR HGB CONC 33.1 g/dL (33.0-37.0); RBC 2.97 Mil/uL (4.40-5.90); RED CELL DISTRIBUTION WIDTH 16.6 % (11.5-14.5); WHITE BLOOD COUNT 6.5 K/uL (4.8-10.8)
[2018-01-01 06:29] LABS: BLOOD UREA NITROGEN 31 mg/dl (9-20); CALCIUM 8.7 mg/dL (8.4-10.2); GFR AFRICAN-AMERICAN > 60; GFR NON-AFRICAN AMERICAN > 60
[2018-01-01] MEDS: Digoxin 500 mcg/2ml (0.5 mg/2ml) Inj IVP SCH (09:22)
[2018-01-01] MEDS: Cholecalciferol 1,000 INTLU TAB PO SCH (09:26)
[2018-01-01] MEDS: Pantoprazole 40 mg EC Tab PO SCH (09:26)
--- NOTE | 2018-01-01 13:16 | CP.PCM.PN ---
Subjective - Date & Time of Evaluation Date of Evaluation: 01/01/18 Time of Evaluation: 10:00 - Subjective Subjective: F/U Respiratory Failure. Pt is awake, alert smiling, follows commands, on and off productive cough, unable to expectorate. Objective - Vital Signs/Intake and Output Vital Signs (last 24 hours): Temp Pulse Resp BP Pulse Ox 98.4 F 87 20 132/62 100 01/01/18 12:00 01/01/18 12:00 01/01/18 12:00 01/01/18 12:00 01/01/18 12:00 Intake and Output: 01/01/18 01/01/18 06:59 18:59 Intake Total 520 280 Balance 520 280 - Medications Medications: Current Medications Apixaban (Eliquis) 2.5 mg PO Q12 [facility] PRN Reason: Protocol Last Admin: 01/01/18 09:24 Dose: 2.5 mg Cholecalciferol (Vitamin D) 5,000 intlu PO DAILY [facility] Last Admin: 01/01/18 09:26 Dose: 5,000 intlu Digoxin (Lanoxin) 0.125 mg IVP DAILY [facility] Last Admin: 01/01/18 09:22 Dose: 0.125 mg Diltiazem HCl (Cardizem) 30 mg PO Q6 [facility] Last Admin: 01/01/18 09:24 Dose: 30 mg Furosemide (Lasix) 40 mg IVP DAILY [facility] Last Admin: 01/01/18 09:23 Dose: 40 mg Lamotrigine (Lamictal) 100 mg PO Q12 [facility] Last Admin: 01/01/18 09:25 Dose: 100 mg Metoprolol Tartrate (Lopressor) 25 mg PO Q12 [facility] Last Admin: 01/01/18 09:26 Dose: 25 mg Pantoprazole Sodium (Protonix Ec Tab) 40 mg PO DAILY [facility] Last Admin: 01/01/18 09:26 Dose: 40 mg - Labs Labs: 01/01/18 04:30 01/01/18 04:30 PT 13.8 Seconds (9.8-13.1) H 12/14/17 07:10 INR 1.2 (0.9-1.2) 12/14/17 07:10 APTT 34.4 Seconds (25.6-37.1) 10/26/17 12:30 - Constitutional Appears: No Acute Distress, Chronically Ill - Head Exam Head Exam: NORMAL INSPECTION - Eye Exam Eye Exam: PERRL - ENT Exam Additional comments: NGT, on high flow O2. - Neck Exam Neck Exam: Normal Inspection - Respiratory Exam Respiratory Exam: Decreased Breath Sounds (at bases) - Cardiovascular Exam Cardiovascular Exam: Irregular Rhythm - GI/Abdominal Exam GI & Abdominal Exam: Soft, Normal Bowel Sounds - Extremities Exam Extremities Exam: Normal Inspection - Back Exam Additional comments: Sacral tear healing - Neurological Exam Neurological Exam: Awake Additional comments: [place] commands, generalized weakness. - Skin Skin Exam: Warm Assessment and Plan (1) Acute respiratory failure with hypoxia Status: Acute (2) Encephalopathy Status: Acute (3) Pleural effusion, bilateral Status: Resolved (4) Diastolic CHF, acute on chronic Status: Acute (5) Hx of seizure disorder Status: Chronic (6) A-fib Status: Chronic (7) CANDELARIA (acute kidney injury) Status: Resolved (8) Anemia Status: Chronic (9) Aortic valve vegetation Status: Chronic (10) SUSAN (obstructive sleep apnea) Status: Chronic (11) Pulmonary hypertension Status: Chronic (12) Clostridium difficile infection Status: Resolved (13) Hypertension Status: Chronic - Assessment and Plan (Free Text) Plan: Continue high flow O2, FIO2 30%, continue Cardizem, Lanoxin, Lasix, Lopressor, Eliquis and rest of Tx. Continue PT. ICU Time: 39 min.
[2018-01-02] MEDS: Cholecalciferol 1,000 INTLU TAB PO SCH (08:53)
[2018-01-02] MEDS: Pantoprazole 40 mg EC Tab PO SCH (08:54)
[2018-01-02] MEDS: Digoxin 500 mcg/2ml (0.5 mg/2ml) Inj IVP SCH (08:55)
--- NOTE | 2018-01-02 13:10 | CP.PCM.PN ---
Subjective - Date & Time of Evaluation Date of Evaluation: 01/02/18 Time of Evaluation: 10:00 - Subjective Subjective: F/U Respiratory Failure Pt with eyes open, smiling, answering questions, at bedside. Objective - Vital Signs/Intake and Output Vital Signs (last 24 hours): Temp Pulse Resp BP Pulse Ox 98.3 F 75 19 127/55 L 100 01/02/18 12:00 01/02/18 12:00 01/02/18 12:53 01/02/18 12:00 01/02/18 12:00 Intake and Output: 01/02/18 01/02/18 06:59 18:59 Intake Total 450 Output Total 100 Balance 450 -100 - Medications Medications: Current Medications Apixaban (Eliquis) 2.5 mg PO Q12 [facility] PRN Reason: Protocol Last Admin: 01/02/18 08:54 Dose: 2.5 mg Cholecalciferol (Vitamin D) 5,000 intlu PO DAILY [facility] Last Admin: 01/02/18 08:53 Dose: 5,000 intlu Digoxin (Lanoxin) 0.125 mg IVP DAILY [facility] Last Admin: 01/02/18 08:55 Dose: 0.125 mg Diltiazem HCl (Cardizem) 30 mg PO Q6 [facility] Last Admin: 01/02/18 11:00 Dose: 30 mg Furosemide (Lasix) 40 mg IVP DAILY [facility] Last Admin: 01/02/18 08:56 Dose: 40 mg Lamotrigine (Lamictal) 100 mg PO Q12 [facility] Last Admin: 01/02/18 08:54 Dose: 100 mg Metoprolol Tartrate (Lopressor) 25 mg PO Q12 [facility] Last Admin: 01/02/18 08:56 Dose: 25 mg Pantoprazole Sodium (Protonix Ec Tab) 40 mg PO DAILY [facility] Last Admin: 01/02/18 08:54 Dose: 40 mg - Labs Labs: 01/01/18 04:30 01/01/18 04:30 PT 13.8 Seconds (9.8-13.1) H 12/14/17 07:10 INR 1.2 (0.9-1.2) 12/14/17 07:10 APTT 34.4 Seconds (25.6-37.1) 10/26/17 12:30 - Constitutional Appears: No Acute Distress, Chronically Ill - Head Exam Head Exam: NORMAL INSPECTION - Eye Exam Eye Exam: PERRL - ENT Exam Additional comments: NGT, On high flow O2. - Neck Exam Neck Exam: Normal Inspection - Respiratory Exam Respiratory Exam: Decreased Breath Sounds (at bases) - Cardiovascular Exam Cardiovascular Exam: Irregular Rhythm - GI/Abdominal Exam GI & Abdominal Exam: Soft, Normal Bowel Sounds - Extremities Exam Extremities Exam: Normal Inspection - Back Exam Additional comments: Sacral tear healing - Neurological Exam Neurological Exam: Awake Additional comments: Follows commands, generalized weakness. - Skin Skin Exam: Warm Assessment and Plan (1) Acute respiratory failure with hypoxia Status: Acute (2) Encephalopathy Status: Acute (3) Pleural effusion, bilateral Status: Resolved (4) Diastolic CHF, acute on chronic Status: Acute (5) Hx of seizure disorder Status: Chronic (6) A-fib Status: Chronic (7) CANDELARIA (acute kidney injury) Status: Resolved (8) Anemia Status: Chronic (9) Aortic valve vegetation Status: Chronic (10) SUSAN (obstructive sleep apnea) Status: Chronic (11) Pulmonary hypertension Status: Chronic (12) Clostridium difficile infection Status: Resolved (13) Hypertension Status: Chronic - Assessment and Plan (Free Text) Plan: Continue Lasix, Cardizem, Lanoxin, Protonix, Eliquis and rest of medications, continue PT. ICU Time: 41 min.
[2018-01-03] MEDS: Digoxin 500 mcg/2ml (0.5 mg/2ml) Inj IVP SCH (08:58)
[2018-01-03] MEDS: Pantoprazole 40 mg EC Tab PO SCH (08:59)
[2018-01-03] MEDS: Cholecalciferol 1,000 INTLU TAB PO SCH (09:00)
--- NOTE | 2018-01-03 13:22 | CP.PCM.PN ---
Subjective - Date & Time of Evaluation Date of Evaluation: 01/03/18 Time of Evaluation: 12:40 - Subjective Subjective: F/U Respiratory Failure. Pt awake, smiling, aswer questions with single words. Objective - Vital Signs/Intake and Output Vital Signs (last 24 hours): Temp Pulse Resp BP Pulse Ox 99.2 F 69 24 143/61 100 01/03/18 12:00 01/03/18 12:00 01/03/18 12:00 01/03/18 12:00 01/03/18 12:00 Intake and Output: 01/03/18 01/03/18 06:59 18:59 Intake Total 720 280 Output Total 450 200 Balance 270 80 - Medications Medications: Current Medications Apixaban (Eliquis) 2.5 mg PO Q12 [facility] PRN Reason: Protocol Last Admin: 01/03/18 08:58 Dose: 2.5 mg Cholecalciferol (Vitamin D) 5,000 intlu PO DAILY [facility] Last Admin: 01/03/18 09:00 Dose: 5,000 intlu Digoxin (Lanoxin) 0.125 mg IVP DAILY [facility] Last Admin: 01/03/18 08:58 Dose: 0.125 mg Diltiazem HCl (Cardizem) 30 mg PO Q6 [facility] Last Admin: 01/03/18 09:01 Dose: 30 mg Furosemide (Lasix) 40 mg IVP DAILY [facility] Last Admin: 01/03/18 08:57 Dose: 40 mg Lamotrigine (Lamictal) 100 mg PO Q12 [facility] Last Admin: 01/03/18 08:59 Dose: 100 mg Metoprolol Tartrate (Lopressor) 25 mg PO Q12 [facility] Last Admin: 01/03/18 08:59 Dose: 25 mg Pantoprazole Sodium (Protonix Ec Tab) 40 mg PO DAILY [facility] Last Admin: 01/03/18 08:59 Dose: 40 mg - Labs Labs: 01/01/18 04:30 01/01/18 04:30 PT 13.8 Seconds (9.8-13.1) H 12/14/17 07:10 INR 1.2 (0.9-1.2) 12/14/17 07:10 APTT 34.4 Seconds (25.6-37.1) 10/26/17 12:30 - Constitutional Appears: Chronically Ill - Head Exam Head Exam: NORMAL INSPECTION - Eye Exam Eye Exam: PERRL - ENT Exam Additional comments: NGT, on high flow O2 - Neck Exam Neck Exam: Normal Inspection - Respiratory Exam Respiratory Exam: Decreased Breath Sounds (at bases) - Cardiovascular Exam Cardiovascular Exam: Irregular Rhythm - GI/Abdominal Exam GI & Abdominal Exam: Soft, Normal Bowel Sounds - Extremities Exam Extremities Exam: Normal Inspection - Back Exam Additional comments: Scar tear healing - Neurological Exam Neurological Exam: Awake Additional comments: Follows commands, generalized weakness. - Skin Skin Exam: Warm Assessment and Plan (1) Acute respiratory failure with hypoxia Status: Acute (2) Encephalopathy Status: Acute (3) Pleural effusion, bilateral Status: Resolved (4) Diastolic CHF, acute on chronic Status: Acute (5) Hx of seizure disorder Status: Chronic (6) A-fib Status: Chronic (7) CANDELARIA (acute kidney injury) Status: Resolved (8) Anemia Status: Chronic (9) Aortic valve vegetation Status: Chronic (10) SUSAN (obstructive sleep apnea) Status: Chronic (11) Pulmonary hypertension Status: Chronic (12) Clostridium difficile infection Status: Resolved (13) Hypertension Status: Chronic - Assessment and Plan (Free Text) Plan: Continue Lopressor, Lasix, Cardizem and rest of Tx. ICU Time: 40 min.
[2018-01-04] MEDS: Digoxin 500 mcg/2ml (0.5 mg/2ml) Inj IVP SCH (08:40)
[2018-01-04] MEDS: Pantoprazole 40 mg EC Tab PO SCH (08:41)
[2018-01-04] MEDS: Cholecalciferol 1,000 INTLU TAB PO SCH (08:42)
[2018-01-04 10:19] LABS: URINE BILIRUBIN NEGATIVE (NEGATIVE); URINE BLOOD SMALL (NEGATIVE); URINE CLARITY TURBID (Clear); URINE COLOR RED (YELLOW); URINE GLUCOSE (UA) NEG (Normal); URINE LEUKOCYTE ESTERASE NEG Leu/uL (Negative); URINE PROTEIN 100 mg/dL (NEGATIVE); URINE UROBILINOGEN 0.2-1.0 mg/dL (0.2-1.0); WBC CLUMPS FEW /hpf
--- NOTE | 2018-01-04 13:36 | CP.PCM.PN ---
Subjective - Date & Time of Evaluation Date of Evaluation: 01/04/18 Time of Evaluation: 12:00 - Subjective Subjective: F/U Respiratory Failure. Awake, able to talk, follows commands. Objective - Vital Signs/Intake and Output Vital Signs (last 24 hours): Temp Pulse Resp BP Pulse Ox 97.5 F L 69 18 139/65 100 01/04/18 13:16 01/04/18 13:16 01/04/18 13:16 01/04/18 13:16 01/04/18 13:16 Intake and Output: 01/04/18 01/04/18 06:59 18:59 Intake Total 900 600 Output Total 350 20 Balance 550 580 - Medications Medications: Current Medications Apixaban (Eliquis) 2.5 mg PO Q12 [facility] PRN Reason: Protocol Last Admin: 01/04/18 09:34 Dose: Not Given Cholecalciferol (Vitamin D) 5,000 intlu PO DAILY [facility] Last Admin: 01/04/18 08:42 Dose: 5,000 intlu Digoxin (Lanoxin) 0.125 mg IVP DAILY [facility] Last Admin: 01/04/18 08:40 Dose: 0.125 mg Diltiazem HCl (Cardizem) 30 mg PO Q6 [facility] Last Admin: 01/04/18 09:06 Dose: 30 mg Furosemide (Lasix) 40 mg IVP DAILY [facility] Last Admin: 01/04/18 08:40 Dose: 40 mg Lamotrigine (Lamictal) 100 mg PO Q12 [facility] Last Admin: 01/04/18 08:42 Dose: 100 mg Metoprolol Tartrate (Lopressor) 25 mg PO Q12 [facility] Last Admin: 01/04/18 08:41 Dose: 25 mg Pantoprazole Sodium (Protonix Ec Tab) 40 mg PO DAILY [facility] Last Admin: 01/04/18 08:41 Dose: 40 mg - Labs Labs: 01/01/18 04:30 01/01/18 04:30 PT 13.8 Seconds (9.8-13.1) H 12/14/17 07:10 INR 1.2 (0.9-1.2) 12/14/17 07:10 APTT 34.4 Seconds (25.6-37.1) 10/26/17 12:30 - Constitutional Appears: Chronically Ill - Head Exam Head Exam: NORMAL INSPECTION - Eye Exam Eye Exam: PERRL - ENT Exam Additional comments: OG tube - Respiratory Exam Respiratory Exam: Decreased Breath Sounds (at bases) - Cardiovascular Exam Cardiovascular Exam: Irregular Rhythm - GI/Abdominal Exam GI & Abdominal Exam: Soft, Normal Bowel Sounds - Extremities Exam Extremities Exam: Normal Inspection, Tenderness - Back Exam Additional comments: Sacral tear healing - Neurological Exam Neurological Exam: Awake Additional comments: Able to talk, follows commands, generalized weakness. - Psychiatric Exam Additional comments: Calm. - Skin Skin Exam: Warm Assessment and Plan (1) Acute respiratory failure with hypoxia Status: Acute (2) Encephalopathy Status: Acute (3) Pleural effusion, bilateral Status: Resolved (4) Diastolic CHF, acute on chronic Status: Acute (5) Hx of seizure disorder Status: Chronic (6) A-fib Status: Chronic (7) CANDELARIA (acute kidney injury) Status: Resolved (8) Anemia Status: Chronic (9) Aortic valve vegetation Status: Chronic (10) SUSAN (obstructive sleep apnea) Status: Chronic (11) Pulmonary hypertension Status: Chronic (12) Clostridium difficile infection Status: Resolved (13) Hypertension Status: Chronic - Assessment and Plan (Free Text) Plan: Pt improved and stable, transfer to Telemetry.
[2018-01-04 16:50] LABS: HEMOGLOBIN 8.7 g/dL (12.0-18.0); MEAN CELL VOLUME 90.3 fl (80.0-94.0); MEAN CORPUSCULAR HGB CONC 33.3 g/dL (33.0-37.0); RBC 2.91 Mil/uL (4.40-5.90); RED CELL DISTRIBUTION WIDTH 15.8 % (11.5-14.5); WHITE BLOOD COUNT 6.5 K/uL (4.8-10.8)
[2018-01-04 17:11] LABS: BLOOD UREA NITROGEN 33 mg/dl (9-20); CALCIUM 8.6 mg/dL (8.4-10.2); GFR AFRICAN-AMERICAN > 60; GFR NON-AFRICAN AMERICAN > 60
[2018-01-04 17:16] LABS: INR 1.5 (0.9-1.2); PROTHROMBIN TIME 16.6 Seconds (9.8-13.1)
[2018-01-05 06:55] LABS: HEMOGLOBIN 9.1 g/dL (12.0-18.0); MEAN CELL VOLUME 89.9 fl (80.0-94.0); MEAN CORPUSCULAR HEMOGLOBIN 30.2 pg (27.0-31.0); MEAN CORPUSCULAR HGB CONC 33.6 g/dL (33.0-37.0); RBC 3.03 Mil/uL (4.40-5.90); RED CELL DISTRIBUTION WIDTH 15.9 % (11.5-14.5); WHITE BLOOD COUNT 6.5 K/uL (4.8-10.8)
[2018-01-05 07:04] LABS: INR 1.4 (0.9-1.2); PARTIAL THROMBOPLASTIN TIME 27.6 Seconds (25.6-37.1); PROTHROMBIN TIME 15.4 Seconds (9.8-13.1)
[2018-01-05 07:30] LABS: BLOOD UREA NITROGEN 29 mg/dl (9-20); CALCIUM 8.8 mg/dL (8.4-10.2); GFR AFRICAN-AMERICAN > 60; GFR NON-AFRICAN AMERICAN > 60
[2018-01-05] MEDS: Digoxin 500 mcg/2ml (0.5 mg/2ml) Inj IVP SCH (08:57)
[2018-01-05] MEDS: Pantoprazole 40 mg EC Tab PO SCH (08:58)
[2018-01-05] MEDS: Cholecalciferol 1,000 INTLU TAB PO SCH (08:58)
[2018-01-05] MEDS ORDERED: Potassium Chloride 20 mEq/15 ml LIQ UD PO ONE (09:03)
--- NOTE | 2018-01-05 09:26 | RAD ---
HISTORY: pt with ngt and ff up COMPARISON: Portable chest 12/17/2017 FINDINGS: Patient's lower face obscures left apex and midline upper mediastinum. Endotracheal tube tip of appears to been removed. Nasogastric tube is again identified extending into the abdomen. Right-sided PICC not significantly changed in position. Unipolar pacemaker again noted. LUNGS: Left basilar atelectasis or infiltrate persists with small pleural effusion not excluded. Patchy right perihilar density has resolved. No medium or large right pleural effusion evident however the right costophrenic sulcus is been excluded from this exam. No definite right-sided infiltrate. No pneumothorax identified grossly. PLEURA: As above. CARDIOVASCULAR: Cardiac silhouette appears stable. No definite pulmonary vascular derangement appreciable. OSSEOUS STRUCTURES: No significant abnormalities. VISUALIZED UPPER ABDOMEN: Normal. OTHER FINDINGS: None. IMPRESSION: Limited left pleural effusion and retrocardiac atelectasis or infiltrate not significantly changed. Resolution of prior right perihilar patchy airspace disease. Interval extubation suspected. Clinically correlate. Patient's lower face obscures midline upper mediastinum and left apex.
--- NOTE | 2018-01-05 11:29 | RAD ---
HISTORY: Stomach pain COMPARISON: No prior. FINDINGS: BOWEL: There is a nonobstructive bowel gas pattern appreciated. A nasogastric tube is identified terminating in either the distal gastric antrum or possibly the duodenum region. No gross free intraperitoneal gas is identified and there are no abnormal intra-abdominal calcifications appreciated. Left upper quadrant is somewhat obscured by telemetry leads. BONES: Multilevel lumbar spondylosis identified. OTHER FINDINGS: None. IMPRESSION: Nonobstructive bowel gas pattern identified. Nasogastric tube in position as described above. No definite gross free intraperitoneal gas appreciated.
--- NOTE | 2018-01-05 15:28 | CP.PCM.PN ---
Subjective - Date & Time of Evaluation Date of Evaluation: 01/05/18 Time of Evaluation: 12:50 - Subjective Subjective: F/U Respiratory failure. Pt awake, answer questions, follows commands. Objective - Vital Signs/Intake and Output Vital Signs (last 24 hours): Temp Pulse Resp BP Pulse Ox 98.3 F 111 H 21 135/71 100 01/05/18 08:38 01/05/18 08:59 01/05/18 14:14 01/05/18 08:59 01/05/18 08:38 Intake and Output: 01/05/18 01/05/18 06:59 18:59 Intake Total 600 Output Total 500 Balance 100 - Medications Medications: Current Medications Cholecalciferol (Vitamin D) 5,000 intlu PO DAILY [facility] Last Admin: 01/05/18 08:58 Dose: 5,000 intlu Digoxin (Lanoxin) 0.125 mg IVP DAILY [facility] Last Admin: 01/05/18 08:57 Dose: 0.125 mg Diltiazem HCl (Cardizem) 30 mg PO Q6 [facility] Last Admin: 01/05/18 08:59 Dose: 30 mg Furosemide (Lasix) 40 mg IVP DAILY [facility] Last Admin: 01/05/18 08:56 Dose: 40 mg Lamotrigine (Lamictal) 100 mg PO Q12 [facility] Last Admin: 01/05/18 08:57 Dose: 100 mg Metoprolol Tartrate (Lopressor) 25 mg PO Q12 [facility] Last Admin: 01/05/18 08:58 Dose: 25 mg Pantoprazole Sodium (Protonix Ec Tab) 40 mg PO DAILY [facility] Last Admin: 01/05/18 08:58 Dose: 40 mg - Labs Labs: 01/05/18 05:30 01/05/18 05:30 PT 15.4 Seconds (9.8-13.1) H 01/05/18 05:30 INR 1.4 (0.9-1.2) H 01/05/18 05:30 APTT 27.6 Seconds (25.6-37.1) 01/05/18 05:30 - Constitutional Appears: Chronically Ill - Head Exam Head Exam: NORMAL INSPECTION - Eye Exam Eye Exam: PERRL - ENT Exam Additional comments: OG tube in place. - Neck Exam Neck Exam: Normal Inspection - Respiratory Exam Respiratory Exam: Decreased Breath Sounds (at bases) - Cardiovascular Exam Cardiovascular Exam: Irregular Rhythm - GI/Abdominal Exam GI & Abdominal Exam: Soft, Normal Bowel Sounds - Extremities Exam Extremities Exam: Normal Inspection - Back Exam Additional comments: Sacral tear healing - Neurological Exam Neurological Exam: Awake Additional comments: able to talk, follows commands, generalized weakness. - Psychiatric Exam Additional comments: Calm. - Skin Skin Exam: Warm Assessment and Plan (1) Acute respiratory failure with hypoxia Status: Acute (2) Encephalopathy Status: Acute (3) Pleural effusion, bilateral Status: Resolved (4) Diastolic CHF, acute on chronic Status: Acute (5) Hx of seizure disorder Status: Chronic (6) A-fib Status: Chronic (7) CANDELARIA (acute kidney injury) Status: Resolved (8) Anemia Status: Chronic (9) Aortic valve vegetation Status: Chronic (10) SUSAN (obstructive sleep apnea) Status: Chronic (11) Pulmonary hypertension Status: Chronic (12) Clostridium difficile infection Status: Resolved (13) Hypertension Status: Chronic - Assessment and Plan (Free Text) Plan: Urine more clear, gross hematuria resolved, f/u U C-S. Urology consult.
[2018-01-06 06:50] LABS: MEAN CELL VOLUME 89.3 fl (80.0-94.0); MEAN CORPUSCULAR HEMOGLOBIN 30.2 pg (27.0-31.0); MEAN CORPUSCULAR HGB CONC 33.8 g/dL (33.0-37.0); RBC 2.99 Mil/uL (4.40-5.90); RED CELL DISTRIBUTION WIDTH 16.2 % (11.5-14.5); WHITE BLOOD COUNT 6.2 K/uL (4.8-10.8)
[2018-01-06 07:09] LABS: ALB/GLOB RATIO 0.8 (1.0-2.1); ALBUMIN 3.1 g/dL (3.5-5.0); ALT/SGPT 27 U/L (21-72); AST/SGOT 28 U/L (17-59); BLOOD UREA NITROGEN 30 mg/dl (9-20); CALCIUM 8.6 mg/dL (8.4-10.2); GFR AFRICAN-AMERICAN > 60; GFR NON-AFRICAN AMERICAN > 60
[2018-01-06] MEDS: Pantoprazole 40 mg EC Tab PO SCH (08:34)
[2018-01-06] MEDS: Cholecalciferol 1,000 INTLU TAB PO SCH (08:34)
[2018-01-06] MEDS: Digoxin 500 mcg/2ml (0.5 mg/2ml) Inj IVP SCH (08:35)
--- NOTE | 2018-01-06 14:26 | CP.PCM.PN ---
Subjective - Date & Time of Evaluation Date of Evaluation: 01/06/18 Time of Evaluation: 11:00 - Subjective Subjective: F/U Respiratory Failure. awake , answer questions , follows commands Objective - Vital Signs/Intake and Output Vital Signs (last 24 hours): Temp Pulse Resp BP Pulse Ox 98.9 F 80 18 141/81 100 01/06/18 12:05 01/06/18 12:05 01/06/18 12:05 01/06/18 12:05 01/06/18 12:05 - Medications Medications: Current Medications Apixaban (Eliquis) 2.5 mg PO BID [facility] PRN Reason: Protocol Cholecalciferol (Vitamin D) 5,000 intlu PO DAILY [facility] Last Admin: 01/06/18 08:34 Dose: 5,000 intlu Digoxin (Lanoxin) 0.125 mg IVP DAILY [facility] Last Admin: 01/06/18 08:35 Dose: 0.125 mg Diltiazem HCl (Cardizem) 30 mg PO Q6 [facility] Last Admin: 01/06/18 10:27 Dose: 30 mg Furosemide (Lasix) 40 mg IVP DAILY [facility] Last Admin: 01/06/18 08:36 Dose: 40 mg Home Med (Dutasteride [Avodart]) 0.5 mg PO DAILY [facility] Lamotrigine (Lamictal) 100 mg PO Q12 [facility] Last Admin: 01/06/18 09:28 Dose: 100 mg Metoprolol Tartrate (Lopressor) 25 mg PO Q12 [facility] Last Admin: 01/06/18 08:34 Dose: 25 mg Pantoprazole Sodium (Protonix Ec Tab) 40 mg PO DAILY [facility] Last Admin: 01/06/18 08:34 Dose: 40 mg - Labs Labs: 01/06/18 06:37 01/06/18 06:37 PT 15.4 Seconds (9.8-13.1) H 01/05/18 05:30 INR 1.4 (0.9-1.2) H 01/05/18 05:30 APTT 27.6 Seconds (25.6-37.1) 01/05/18 05:30 - Constitutional Appears: Chronically Ill - Head Exam Head Exam: NORMAL INSPECTION - Eye Exam Eye Exam: PERRL - ENT Exam Additional comments: OG tube in place - Neck Exam Neck Exam: Normal Inspection - Respiratory Exam Respiratory Exam: Decreased Breath Sounds (at bases) - Cardiovascular Exam Cardiovascular Exam: Irregular Rhythm - GI/Abdominal Exam GI & Abdominal Exam: Soft, Normal Bowel Sounds - Extremities Exam Extremities Exam: Normal Inspection - Back Exam Additional comments: Sacral tear healing - Neurological Exam Neurological Exam: Awake Additional comments: Able to talk, follows commands, generalized weakness. - Psychiatric Exam Additional comments: Calm - Skin Skin Exam: Warm Assessment and Plan (1) Acute respiratory failure with hypoxia Status: Acute (2) Encephalopathy Status: Acute (3) Pleural effusion, bilateral Status: Resolved (4) Diastolic CHF, acute on chronic Status: Acute (5) Hx of seizure disorder Status: Chronic (6) A-fib Status: Chronic (7) CANDELARIA (acute kidney injury) Status: Resolved (8) Anemia Status: Chronic (9) Aortic valve vegetation Status: Chronic (10) SUSAN (obstructive sleep apnea) Status: Chronic (11) Pulmonary hypertension Status: Chronic (12) Clostridium difficile infection Status: Resolved (13) Hypertension Status: Chronic - Assessment and Plan (Free Text) Plan: continue Cardizem, Lopressor , Lamictal , Digoxin , Lasix , Eliquis ,PT
[2018-01-06] MEDS: Patient's Own Med (Dutasteride [Avodart] 0.5 MG) PO SCH (21:33)
[2018-01-07] MEDS: Patient's Own Med (Dutasteride [Avodart] 0.5 MG) PO SCH (08:36)
[2018-01-07] MEDS: Pantoprazole 40 mg EC Tab PO SCH (08:37)
[2018-01-07] MEDS: Cholecalciferol 1,000 INTLU TAB PO SCH (08:37)
[2018-01-07] MEDS: Digoxin 500 mcg/2ml (0.5 mg/2ml) Inj IVP SCH (08:51)
--- NOTE | 2018-01-07 16:27 | CP.PCM.PN ---
Subjective - Date & Time of Evaluation Date of Evaluation: 01/07/18 Time of Evaluation: 10:40 - Subjective Subjective: F/U Respiratory failure.lethargic , arousable , able to talk , follows commands , hand tremor for past 40 min according to Patient,s at bedside Objective - Vital Signs/Intake and Output Vital Signs (last 24 hours): Temp Pulse Resp BP Pulse Ox 98.6 F 93 H 18 172/85 H 100 01/07/18 15:42 01/07/18 15:42 01/07/18 16:11 01/07/18 15:42 01/07/18 15:42 Intake and Output: 01/07/18 01/07/18 06:59 18:59 Intake Total 750 Output Total 500 0 Balance 250 0 - Medications Medications: Current Medications Apixaban (Eliquis) 2.5 mg PO BID [facility] PRN Reason: Protocol Last Admin: 01/07/18 08:37 Dose: 2.5 mg Cholecalciferol (Vitamin D) 5,000 intlu PO DAILY [facility] Last Admin: 01/07/18 08:37 Dose: 5,000 intlu Digoxin (Lanoxin) 0.125 mg IVP DAILY [facility] Last Admin: 01/07/18 08:51 Dose: 0.125 mg Diltiazem HCl (Cardizem) 30 mg PO Q6 [facility] Last Admin: 01/07/18 09:16 Dose: 30 mg Furosemide (Lasix) 40 mg IVP DAILY [facility] Last Admin: 01/07/18 08:37 Dose: 40 mg Home Med (Dutasteride [Avodart]) 0.5 mg PO DAILY [facility] Last Admin: 01/07/18 08:36 Dose: 0.5 mg Lamotrigine (Lamictal) 100 mg PO Q12 [facility] Last Admin: 01/07/18 08:38 Dose: 100 mg Metoprolol Tartrate (Lopressor) 25 mg PO Q12 [facility] Last Admin: 01/07/18 08:36 Dose: 25 mg Pantoprazole Sodium (Protonix Ec Tab) 40 mg PO DAILY [facility] Last Admin: 01/07/18 08:37 Dose: 40 mg - Labs Labs: 01/06/18 06:37 01/06/18 06:37 PT 15.4 Seconds (9.8-13.1) H 01/05/18 05:30 INR 1.4 (0.9-1.2) H 01/05/18 05:30 APTT 27.6 Seconds (25.6-37.1) 01/05/18 05:30 - Constitutional Appears: Chronically Ill - Head Exam Head Exam: NORMAL INSPECTION - Eye Exam Eye Exam: PERRL - ENT Exam Additional comments: OG tube - Neck Exam Neck Exam: Normal Inspection - Respiratory Exam Respiratory Exam: Decreased Breath Sounds (at bases) - Cardiovascular Exam Cardiovascular Exam: Irregular Rhythm - GI/Abdominal Exam GI & Abdominal Exam: Soft, Normal Bowel Sounds - Extremities Exam Extremities Exam: Normal Inspection - Back Exam Additional comments: Sacral tear healing - Neurological Exam Neurological Exam: Awake Additional comments: Follows commands, able to talk, tremor upper extremities , generalized weakness. - Skin Skin Exam: Warm Assessment and Plan (1) Acute respiratory failure with hypoxia Status: Acute (2) Encephalopathy Status: Acute (3) Pleural effusion, bilateral Status: Resolved (4) Diastolic CHF, acute on chronic Status: Acute (5) Hx of seizure disorder Status: Chronic (6) A-fib Status: Chronic (7) CANDELARIA (acute kidney injury) Status: Resolved (8) Anemia Status: Chronic (9) Aortic valve vegetation Status: Chronic (10) SUSAN (obstructive sleep apnea) Status: Chronic (11) Pulmonary hypertension Status: Chronic (12) Clostridium difficile infection Status: Resolved (13) Hypertension Status: Chronic (14) Urinary tract infection due to Proteus Status: Acute - Assessment and Plan (Free Text) Plan: monitor tremor U/E , f/u Neurology , no gross Hematuria, UTI Proteus add Cefepime , continue PT and rest of treatment
--- NOTE | 2018-01-07 23:45 | CP.PCM.PN ---
Subjective - Date & Time of Evaluation Date of Evaluation: 01/01/18 Time of Evaluation: 16:00 - Subjective Subjective: intermittent cough Objective - Vital Signs/Intake and Output Vital Signs (last 24 hours): Temp Pulse Resp BP Pulse Ox 99.1 F 88 17 106/61 100 01/07/18 20:11 01/07/18 22:12 01/07/18 21:34 01/07/18 21:35 01/07/18 21:34 Intake and Output: 01/07/18 01/08/18 18:59 06:59 Intake Total 1220 100 Output Total 1025 Balance 195 100 - Medications Medications: Current Medications Apixaban (Eliquis) 2.5 mg PO BID [facility] PRN Reason: Protocol Last Admin: 01/07/18 16:40 Dose: 2.5 mg Cholecalciferol (Vitamin D) 5,000 intlu PO DAILY [facility] Last Admin: 01/07/18 08:37 Dose: 5,000 intlu Digoxin (Lanoxin) 0.125 mg IVP DAILY [facility] Last Admin: 01/07/18 08:51 Dose: 0.125 mg Diltiazem HCl (Cardizem) 30 mg PO Q6 [facility] Last Admin: 01/07/18 21:34 Dose: 30 mg Furosemide (Lasix) 40 mg IVP DAILY [facility] Last Admin: 01/07/18 08:37 Dose: 40 mg Home Med (Dutasteride [Avodart]) 0.5 mg PO DAILY [facility] Last Admin: 01/07/18 08:36 Dose: 0.5 mg Cefepime HCl 1 gm/ Sodium (Chloride) 100 mls @ 100 mls/hr IVPB Q12 [facility] PRN Reason: Protocol Lamotrigine (Lamictal) 100 mg PO Q12 [facility] Last Admin: 01/07/18 21:35 Dose: 100 mg Metoprolol Tartrate (Lopressor) 25 mg PO Q12 [facility] Last Admin: 01/07/18 21:35 Dose: 25 mg Pantoprazole Sodium (Protonix Ec Tab) 40 mg PO DAILY [facility] Last Admin: 01/07/18 08:37 Dose: 40 mg - Labs Labs: 01/06/18 06:37 01/06/18 06:37 PT 15.4 Seconds (9.8-13.1) H 01/05/18 05:30 INR 1.4 (0.9-1.2) H 01/05/18 05:30 APTT 27.6 Seconds (25.6-37.1) 01/05/18 05:30 - Constitutional Appears: Well - Head Exam Head Exam: ATRAUMATIC, NORMAL INSPECTION, NORMOCEPHALIC - Eye Exam Eye Exam: EOMI, Normal appearance, PERRL Pupil Exam: NORMAL ACCOMODATION, PERRL - ENT Exam ENT Exam: Mucous Membranes Moist, Normal Exam - Neck Exam Neck Exam: Full ROM, Normal Inspection. absent: Lymphadenopathy - Respiratory Exam Respiratory Exam: Clear to Ausculation Bilateral, Rales, Rhonchi, NORMAL BREATHING PATTERN - Cardiovascular Exam Cardiovascular Exam: Irregular Rhythm, +S1, +S2, Murmur - GI/Abdominal Exam GI & Abdominal Exam: Soft, Normal Bowel Sounds. absent: Tenderness - Extremities Exam Extremities Exam: Full ROM, Normal Capillary Refill, Normal Inspection. absent : Joint Swelling, Pedal Edema - Back Exam Back Exam: NORMAL INSPECTION - Neurological Exam Neurological Exam: Alert, Awake - Psychiatric Exam Psychiatric exam: Normal Affect, Normal Mood - Skin Skin Exam: Dry, Intact, Normal Color, Warm Assessment and Plan (1) A-fib Status: Chronic (2) Acute on chronic diastolic (congestive) heart failure Status: Chronic (3) Acute respiratory failure with hypoxia Status: Acute (4) Altered mental status Status: Acute (5) HTN (hypertension) Status: Chronic (6) Seizure disorder Status: Chronic (7) CANDELARIA (acute kidney injury) Status: Resolved (8) Encephalopathy Status: Acute (9) Hypothermia Status: Acute (10) Pleural effusion, bilateral Status: Resolved (11) Supratherapeutic international normalized ratio (INR) Status: Acute (12) Acute decompensated heart failure Status: Acute (13) Atrial fibrillation with RVR Status: Acute
--- NOTE | 2018-01-07 23:49 | CP.PCM.PN ---
Subjective - Date & Time of Evaluation Date of Evaluation: 01/02/18 Time of Evaluation: 09:00 - Subjective Subjective: intermittent bouts of cough BP elevated CCB dose adjusted Objective - Vital Signs/Intake and Output Vital Signs (last 24 hours): Temp Pulse Resp BP Pulse Ox 99.1 F 88 17 106/61 100 01/07/18 20:11 01/07/18 22:12 01/07/18 21:34 01/07/18 21:35 01/07/18 21:34 Intake and Output: 01/07/18 01/08/18 18:59 06:59 Intake Total 1220 100 Output Total 1025 Balance 195 100 - Medications Medications: Current Medications Apixaban (Eliquis) 2.5 mg PO BID [facility] PRN Reason: Protocol Last Admin: 01/07/18 16:40 Dose: 2.5 mg Cholecalciferol (Vitamin D) 5,000 intlu PO DAILY [facility] Last Admin: 01/07/18 08:37 Dose: 5,000 intlu Digoxin (Lanoxin) 0.125 mg IVP DAILY [facility] Last Admin: 01/07/18 08:51 Dose: 0.125 mg Diltiazem HCl (Cardizem) 30 mg PO Q6 [facility] Last Admin: 01/07/18 21:34 Dose: 30 mg Furosemide (Lasix) 40 mg IVP DAILY [facility] Last Admin: 01/07/18 08:37 Dose: 40 mg Home Med (Dutasteride [Avodart]) 0.5 mg PO DAILY [facility] Last Admin: 01/07/18 08:36 Dose: 0.5 mg Cefepime HCl 1 gm/ Sodium (Chloride) 100 mls @ 100 mls/hr IVPB Q12@0100,1300 [facility] PRN Reason: Protocol Lamotrigine (Lamictal) 100 mg PO Q12 [facility] Last Admin: 01/07/18 21:35 Dose: 100 mg Metoprolol Tartrate (Lopressor) 25 mg PO Q12 [facility] Last Admin: 01/07/18 21:35 Dose: 25 mg Pantoprazole Sodium (Protonix Ec Tab) 40 mg PO DAILY [facility] Last Admin: 01/07/18 08:37 Dose: 40 mg - Labs Labs: 01/06/18 06:37 01/06/18 06:37 PT 15.4 Seconds (9.8-13.1) H 01/05/18 05:30 INR 1.4 (0.9-1.2) H 01/05/18 05:30 APTT 27.6 Seconds (25.6-37.1) 01/05/18 05:30 - Constitutional Appears: Well - Head Exam Head Exam: ATRAUMATIC, NORMAL INSPECTION, NORMOCEPHALIC - Eye Exam Eye Exam: EOMI, Normal appearance, PERRL Pupil Exam: NORMAL ACCOMODATION, PERRL - ENT Exam ENT Exam: Mucous Membranes Moist, Normal Exam - Neck Exam Neck Exam: Full ROM, Normal Inspection. absent: Lymphadenopathy - Respiratory Exam Respiratory Exam: Clear to Ausculation Bilateral, Rales, NORMAL BREATHING PATTERN - Cardiovascular Exam Cardiovascular Exam: Irregular Rhythm, +S1, +S2, Murmur - GI/Abdominal Exam GI & Abdominal Exam: Soft, Normal Bowel Sounds. absent: Tenderness - Extremities Exam Extremities Exam: Full ROM, Normal Capillary Refill, Normal Inspection. absent : Joint Swelling, Pedal Edema - Back Exam Back Exam: NORMAL INSPECTION - Neurological Exam Neurological Exam: Alert, Awake, Oriented x3 - Psychiatric Exam Psychiatric exam: Normal Affect, Normal Mood - Skin Skin Exam: Dry, Intact, Normal Color, Warm Assessment and Plan (1) A-fib Status: Chronic (2) Acute on chronic diastolic (congestive) heart failure Status: Chronic (3) Acute respiratory failure with hypoxia Status: Acute (4) Altered mental status Status: Acute (5) HTN (hypertension) Status: Chronic (6) Seizure disorder Status: Chronic (7) CANDELARIA (acute kidney injury) Status: Resolved (8) Encephalopathy Status: Acute (9) Hypothermia Status: Acute (10) Pleural effusion, bilateral Status: Resolved (11) Supratherapeutic international normalized ratio (INR) Status: Acute (12) Acute decompensated heart failure Status: Acute (13) Atrial fibrillation with RVR Status: Acute
--- NOTE | 2018-01-07 23:51 | CP.PCM.PN ---
Subjective - Date & Time of Evaluation Date of Evaluation: 01/03/18 Time of Evaluation: 18:30 - Subjective Subjective: feeling better transfer to floor Objective - Vital Signs/Intake and Output Vital Signs (last 24 hours): Temp Pulse Resp BP Pulse Ox 99.1 F 88 17 106/61 100 01/07/18 20:11 01/07/18 22:12 01/07/18 21:34 01/07/18 21:35 01/07/18 21:34 Intake and Output: 01/07/18 01/08/18 18:59 06:59 Intake Total 1220 100 Output Total 1025 Balance 195 100 - Medications Medications: Current Medications Apixaban (Eliquis) 2.5 mg PO BID [facility] PRN Reason: Protocol Last Admin: 01/07/18 16:40 Dose: 2.5 mg Cholecalciferol (Vitamin D) 5,000 intlu PO DAILY [facility] Last Admin: 01/07/18 08:37 Dose: 5,000 intlu Digoxin (Lanoxin) 0.125 mg IVP DAILY [facility] Last Admin: 01/07/18 08:51 Dose: 0.125 mg Diltiazem HCl (Cardizem) 30 mg PO Q6 [facility] Last Admin: 01/07/18 21:34 Dose: 30 mg Furosemide (Lasix) 40 mg IVP DAILY [facility] Last Admin: 01/07/18 08:37 Dose: 40 mg Home Med (Dutasteride [Avodart]) 0.5 mg PO DAILY [facility] Last Admin: 01/07/18 08:36 Dose: 0.5 mg Cefepime HCl 1 gm/ Sodium (Chloride) 100 mls @ 100 mls/hr IVPB Q12@0100,1300 [facility] PRN Reason: Protocol Lamotrigine (Lamictal) 100 mg PO Q12 [facility] Last Admin: 01/07/18 21:35 Dose: 100 mg Metoprolol Tartrate (Lopressor) 25 mg PO Q12 [facility] Last Admin: 01/07/18 21:35 Dose: 25 mg Pantoprazole Sodium (Protonix Ec Tab) 40 mg PO DAILY [facility] Last Admin: 01/07/18 08:37 Dose: 40 mg - Labs Labs: 01/06/18 06:37 01/06/18 06:37 PT 15.4 Seconds (9.8-13.1) H 01/05/18 05:30 INR 1.4 (0.9-1.2) H 01/05/18 05:30 APTT 27.6 Seconds (25.6-37.1) 01/05/18 05:30 - Constitutional Appears: Well - Head Exam Head Exam: ATRAUMATIC, NORMAL INSPECTION, NORMOCEPHALIC - Eye Exam Eye Exam: EOMI, Normal appearance, PERRL Pupil Exam: NORMAL ACCOMODATION, PERRL - ENT Exam ENT Exam: Mucous Membranes Moist, Normal Exam - Neck Exam Neck Exam: Full ROM, Normal Inspection. absent: Lymphadenopathy - Respiratory Exam Respiratory Exam: Clear to Ausculation Bilateral, Rales, NORMAL BREATHING PATTERN - Cardiovascular Exam Cardiovascular Exam: Irregular Rhythm, +S1, +S2, Murmur - GI/Abdominal Exam GI & Abdominal Exam: Soft, Normal Bowel Sounds. absent: Tenderness - Extremities Exam Extremities Exam: Normal Capillary Refill, Normal Inspection. absent: Joint Swelling, Pedal Edema - Back Exam Back Exam: NORMAL INSPECTION - Neurological Exam Neurological Exam: Alert, Awake, Oriented x3 - Psychiatric Exam Psychiatric exam: Normal Affect, Normal Mood - Skin Skin Exam: Dry, Intact, Normal Color, Warm Assessment and Plan (1) A-fib Status: Chronic (2) Acute on chronic diastolic (congestive) heart failure Status: Chronic (3) Acute respiratory failure with hypoxia Status: Acute (4) Altered mental status Status: Acute (5) HTN (hypertension) Status: Chronic (6) Seizure disorder Status: Chronic (7) CANDELARIA (acute kidney injury) Status: Resolved (8) Encephalopathy Status: Acute (9) Hypothermia Status: Acute (10) Pleural effusion, bilateral Status: Resolved (11) Supratherapeutic international normalized ratio (INR) Status: Acute (12) Acute decompensated heart failure Status: Acute (13) Atrial fibrillation with RVR Status: Acute
--- NOTE | 2018-01-07 23:53 | CP.PCM.PN ---
Subjective - Date & Time of Evaluation Date of Evaluation: 01/05/18 Time of Evaluation: 21:00 - Subjective Subjective: eliquis held for hematuria lower abdominal discomfort per not on home prostate meds Objective - Vital Signs/Intake and Output Vital Signs (last 24 hours): Temp Pulse Resp BP Pulse Ox 99.1 F 88 17 106/61 100 01/07/18 20:11 01/07/18 22:12 01/07/18 21:34 01/07/18 21:35 01/07/18 21:34 Intake and Output: 01/07/18 01/08/18 18:59 06:59 Intake Total 1220 100 Output Total 1025 Balance 195 100 - Medications Medications: Current Medications Apixaban (Eliquis) 2.5 mg PO BID [facility] PRN Reason: Protocol Last Admin: 01/07/18 16:40 Dose: 2.5 mg Cholecalciferol (Vitamin D) 5,000 intlu PO DAILY [facility] Last Admin: 01/07/18 08:37 Dose: 5,000 intlu Digoxin (Lanoxin) 0.125 mg IVP DAILY [facility] Last Admin: 01/07/18 08:51 Dose: 0.125 mg Diltiazem HCl (Cardizem) 30 mg PO Q6 [facility] Last Admin: 01/07/18 21:34 Dose: 30 mg Furosemide (Lasix) 40 mg IVP DAILY [facility] Last Admin: 01/07/18 08:37 Dose: 40 mg Home Med (Dutasteride [Avodart]) 0.5 mg PO DAILY [facility] Last Admin: 01/07/18 08:36 Dose: 0.5 mg Cefepime HCl 1 gm/ Sodium (Chloride) 100 mls @ 100 mls/hr IVPB Q12@0100,1300 [facility] PRN Reason: Protocol Lamotrigine (Lamictal) 100 mg PO Q12 [facility] Last Admin: 01/07/18 21:35 Dose: 100 mg Metoprolol Tartrate (Lopressor) 25 mg PO Q12 [facility] Last Admin: 01/07/18 21:35 Dose: 25 mg Pantoprazole Sodium (Protonix Ec Tab) 40 mg PO DAILY [facility] Last Admin: 01/07/18 08:37 Dose: 40 mg - Labs Labs: 01/06/18 06:37 01/06/18 06:37 PT 15.4 Seconds (9.8-13.1) H 02/25/18 05:30 INR 1.4 (0.9-1.2) H 01/05/18 05:30 APTT 27.6 Seconds (25.6-37.1) 01/05/18 05:30 - Constitutional Appears: Well - Head Exam Head Exam: ATRAUMATIC, NORMAL INSPECTION, NORMOCEPHALIC - Eye Exam Eye Exam: EOMI, Normal appearance, PERRL Pupil Exam: NORMAL ACCOMODATION, PERRL - ENT Exam ENT Exam: Mucous Membranes Moist, Normal Exam - Neck Exam Neck Exam: Full ROM, Normal Inspection. absent: Lymphadenopathy - Respiratory Exam Respiratory Exam: Clear to Ausculation Bilateral, Rales, NORMAL BREATHING PATTERN - Cardiovascular Exam Cardiovascular Exam: Irregular Rhythm, +S1, +S2, Murmur - GI/Abdominal Exam GI & Abdominal Exam: Soft, Normal Bowel Sounds. absent: Tenderness - Extremities Exam Extremities Exam: Normal Capillary Refill, Normal Inspection. absent: Joint Swelling, Pedal Edema - Back Exam Back Exam: NORMAL INSPECTION - Neurological Exam Neurological Exam: Alert, Awake, Oriented x3 - Psychiatric Exam Psychiatric exam: Normal Affect, Normal Mood - Skin Skin Exam: Dry, Intact, Normal Color, Warm Assessment and Plan (1) A-fib Assessment & Plan: иван held 2' to hematuria BPH meds to be started Status: Chronic (2) Acute on chronic diastolic (congestive) heart failure Status: Chronic (3) Acute respiratory failure with hypoxia Status: Acute (4) Altered mental status Status: Acute (5) HTN (hypertension) Status: Chronic (6) Seizure disorder Status: Chronic (7) CANDELARIA (acute kidney injury) Status: Resolved (8) Encephalopathy Status: Acute (9) Hypothermia Status: Acute (10) Pleural effusion, bilateral Status: Resolved (11) Supratherapeutic international normalized ratio (INR) Status: Acute (12) Acute decompensated heart failure Status: Acute (13) Atrial fibrillation with RVR Status: Acute
--- NOTE | 2018-01-07 23:55 | CP.PCM.PN ---
Subjective - Date & Time of Evaluation Date of Evaluation: 01/06/18 Time of Evaluation: 19:00 - Subjective Subjective: hematuria improving to start on avodart Objective - Vital Signs/Intake and Output Vital Signs (last 24 hours): Temp Pulse Resp BP Pulse Ox 99.1 F 88 17 106/61 100 01/07/18 20:11 01/07/18 22:12 01/07/18 21:34 01/07/18 21:35 01/07/18 21:34 Intake and Output: 01/07/18 01/08/18 18:59 06:59 Intake Total 1220 200 Output Total 1025 Balance 195 200 - Medications Medications: Current Medications Apixaban (Eliquis) 2.5 mg PO BID [facility] PRN Reason: Protocol Last Admin: 01/07/18 16:40 Dose: 2.5 mg Cholecalciferol (Vitamin D) 5,000 intlu PO DAILY [facility] Last Admin: 01/07/18 08:37 Dose: 5,000 intlu Digoxin (Lanoxin) 0.125 mg IVP DAILY [facility] Last Admin: 01/07/18 08:51 Dose: 0.125 mg Diltiazem HCl (Cardizem) 30 mg PO Q6 [facility] Last Admin: 01/07/18 21:34 Dose: 30 mg Furosemide (Lasix) 40 mg IVP DAILY [facility] Last Admin: 01/07/18 08:37 Dose: 40 mg Home Med (Dutasteride [Avodart]) 0.5 mg PO DAILY [facility] Last Admin: 01/07/18 08:36 Dose: 0.5 mg Cefepime HCl 1 gm/ Sodium (Chloride) 100 mls @ 100 mls/hr IVPB Q12@0100,1300 [facility] PRN Reason: Protocol Lamotrigine (Lamictal) 100 mg PO Q12 [facility] Last Admin: 01/07/18 21:35 Dose: 100 mg Metoprolol Tartrate (Lopressor) 25 mg PO Q12 [facility] Last Admin: 01/07/18 21:35 Dose: 25 mg Pantoprazole Sodium (Protonix Ec Tab) 40 mg PO DAILY [facility] Last Admin: 01/07/18 08:37 Dose: 40 mg - Labs Labs: 01/06/18 06:37 01/06/18 06:37 PT 15.4 Seconds (9.8-13.1) H 01/05/18 05:30 INR 1.4 (0.9-1.2) H 01/05/18 05:30 APTT 27.6 Seconds (25.6-37.1) 01/05/18 05:30 - Constitutional Appears: Well - Head Exam Head Exam: ATRAUMATIC, NORMAL INSPECTION, NORMOCEPHALIC - Eye Exam Eye Exam: EOMI, Normal appearance, PERRL Pupil Exam: NORMAL ACCOMODATION, PERRL - ENT Exam ENT Exam: Mucous Membranes Moist, Normal Exam - Neck Exam Neck Exam: Full ROM, Normal Inspection. absent: Lymphadenopathy - Respiratory Exam Respiratory Exam: Clear to Ausculation Bilateral, NORMAL BREATHING PATTERN - Cardiovascular Exam Cardiovascular Exam: Irregular Rhythm, +S1, +S2, Murmur - GI/Abdominal Exam GI & Abdominal Exam: Soft, Normal Bowel Sounds. absent: Tenderness - Extremities Exam Extremities Exam: Normal Capillary Refill, Normal Inspection. absent: Joint Swelling, Pedal Edema - Back Exam Back Exam: NORMAL INSPECTION - Neurological Exam Neurological Exam: Alert, Awake, CN II-XII Intact, Oriented x3 - Psychiatric Exam Psychiatric exam: Normal Affect, Normal Mood - Skin Skin Exam: Dry, Intact, Normal Color, Warm Assessment and Plan (1) A-fib Status: Chronic (2) Acute on chronic diastolic (congestive) heart failure Status: Chronic (3) Acute respiratory failure with hypoxia Status: Acute (4) Altered mental status Status: Acute (5) HTN (hypertension) Status: Chronic (6) Seizure disorder Status: Chronic (7) CANDELARIA (acute kidney injury) Status: Resolved (8) Encephalopathy Status: Acute (9) Hypothermia Status: Acute (10) Pleural effusion, bilateral Status: Resolved (11) Supratherapeutic international normalized ratio (INR) Status: Acute (12) Acute decompensated heart failure Status: Acute (13) Atrial fibrillation with RVR Status: Acute
--- NOTE | 2018-01-07 23:57 | CP.PCM.PN ---
Subjective - Date & Time of Evaluation Date of Evaluation: 01/07/18 Time of Evaluation: 10:30 - Subjective Subjective: hematuria resolved restarted on eliquis Objective - Vital Signs/Intake and Output Vital Signs (last 24 hours): Temp Pulse Resp BP Pulse Ox 99.1 F 88 17 106/61 100 01/07/18 20:11 01/07/18 22:12 01/07/18 21:34 01/07/18 21:35 01/07/18 21:34 Intake and Output: 01/07/18 01/08/18 18:59 06:59 Intake Total 1220 200 Output Total 1025 Balance 195 200 - Medications Medications: Current Medications Apixaban (Eliquis) 2.5 mg PO BID [facility] PRN Reason: Protocol Last Admin: 01/07/18 16:40 Dose: 2.5 mg Cholecalciferol (Vitamin D) 5,000 intlu PO DAILY [facility] Last Admin: 01/07/18 08:37 Dose: 5,000 intlu Digoxin (Lanoxin) 0.125 mg IVP DAILY [facility] Last Admin: 01/07/18 08:51 Dose: 0.125 mg Diltiazem HCl (Cardizem) 30 mg PO Q6 [facility] Last Admin: 01/07/18 21:34 Dose: 30 mg Furosemide (Lasix) 40 mg IVP DAILY [facility] Last Admin: 01/07/18 08:37 Dose: 40 mg Home Med (Dutasteride [Avodart]) 0.5 mg PO DAILY [facility] Last Admin: 01/07/18 08:36 Dose: 0.5 mg Cefepime HCl 1 gm/ Sodium (Chloride) 100 mls @ 100 mls/hr IVPB Q12@0100,1300 [facility] PRN Reason: Protocol Lamotrigine (Lamictal) 100 mg PO Q12 [facility] Last Admin: 01/07/18 21:35 Dose: 100 mg Metoprolol Tartrate (Lopressor) 25 mg PO Q12 [facility] Last Admin: 01/07/18 21:35 Dose: 25 mg Pantoprazole Sodium (Protonix Ec Tab) 40 mg PO DAILY [facility] Last Admin: 01/07/18 08:37 Dose: 40 mg - Labs Labs: 01/06/18 06:37 01/06/18 06:37 PT 15.4 Seconds (9.8-13.1) H 01/05/18 05:30 INR 1.4 (0.9-1.2) H 01/05/18 05:30 APTT 27.6 Seconds (25.6-37.1) 01/05/18 05:30 - Constitutional Appears: Well - Head Exam Head Exam: ATRAUMATIC, NORMAL INSPECTION, NORMOCEPHALIC - Eye Exam Eye Exam: EOMI, Normal appearance, PERRL Pupil Exam: NORMAL ACCOMODATION, PERRL - ENT Exam ENT Exam: Mucous Membranes Moist, Normal Exam - Neck Exam Neck Exam: Full ROM, Normal Inspection. absent: Lymphadenopathy - Respiratory Exam Respiratory Exam: Clear to Ausculation Bilateral, NORMAL BREATHING PATTERN - Cardiovascular Exam Cardiovascular Exam: Irregular Rhythm, +S1, +S2, Murmur - GI/Abdominal Exam GI & Abdominal Exam: Soft, Normal Bowel Sounds. absent: Tenderness - Extremities Exam Extremities Exam: Normal Capillary Refill, Normal Inspection. absent: Joint Swelling, Pedal Edema - Back Exam Back Exam: NORMAL INSPECTION - Neurological Exam Neurological Exam: Alert, Awake, CN II-XII Intact, Oriented x3 - Psychiatric Exam Psychiatric exam: Normal Affect, Normal Mood - Skin Skin Exam: Dry, Intact, Normal Color, Warm Assessment and Plan (1) A-fib Status: Chronic (2) Acute on chronic diastolic (congestive) heart failure Status: Chronic (3) Acute respiratory failure with hypoxia Status: Acute (4) Altered mental status Status: Acute (5) HTN (hypertension) Status: Chronic (6) Seizure disorder Status: Chronic (7) CANDELARIA (acute kidney injury) Status: Resolved (8) Encephalopathy Status: Acute (9) Hypothermia Status: Acute (10) Pleural effusion, bilateral Status: Resolved (11) Supratherapeutic international normalized ratio (INR) Status: Acute (12) Acute decompensated heart failure Status: Acute (13) Atrial fibrillation with RVR Status: Acute
[2018-01-07] MEDS: Cefepime 1 GM in Sodium Chloride 0.9% 100 ML IVPB SCH (23:59)
[2018-01-08] MEDS: Patient's Own Med (Dutasteride [Avodart] 0.5 MG) PO SCH (09:29)
[2018-01-08] MEDS: Pantoprazole 40 mg EC Tab PO SCH (09:34)
[2018-01-08] MEDS: Cholecalciferol 1,000 INTLU TAB PO SCH (09:34)
[2018-01-08] MEDS: Digoxin 500 mcg/2ml (0.5 mg/2ml) Inj IVP SCH (09:45)
--- NOTE | 2018-01-08 12:47 | CP.PCM.PN ---
Subjective - Date & Time of Evaluation Date of Evaluation: 02/05/18 Time of Evaluation: 12:30 - Subjective Subjective: F/U Respiratory Failure awake , follows commands, answer questions Objective - Vital Signs/Intake and Output Vital Signs (last 24 hours): Temp Pulse Resp BP Pulse Ox 98.9 F 82 18 176/72 H 100 01/08/18 08:00 01/08/18 09:33 01/08/18 08:00 01/08/18 09:33 01/08/18 08:00 Intake and Output: 01/08/18 01/08/18 06:59 18:59 Intake Total 1160 Output Total 600 Balance 560 - Medications Medications: Current Medications Apixaban (Eliquis) 2.5 mg PO BID [facility] PRN Reason: Protocol Last Admin: 01/08/18 09:31 Dose: 2.5 mg Cholecalciferol (Vitamin D) 5,000 intlu PO DAILY [facility] Last Admin: 01/08/18 09:34 Dose: 5,000 intlu Digoxin (Lanoxin) 0.125 mg IVP DAILY [facility] Last Admin: 01/08/18 09:45 Dose: 0.125 mg Diltiazem HCl (Cardizem) 30 mg PO Q6 [facility] Last Admin: 01/08/18 09:30 Dose: 30 mg Furosemide (Lasix) 40 mg IVP DAILY [facility] Last Admin: 01/08/18 09:31 Dose: 40 mg Home Med (Dutasteride [Avodart]) 0.5 mg PO DAILY [facility] Last Admin: 01/08/18 09:29 Dose: 0.5 mg Cefepime HCl 1 gm/ Sodium (Chloride) 100 mls @ 100 mls/hr IVPB Q12@0100,1300 [facility] PRN Reason: Protocol Last Admin: 01/07/18 23:59 Dose: 100 mls/hr Lamotrigine (Lamictal) 100 mg PO Q12 [facility] Last Admin: 01/08/18 09:31 Dose: 100 mg Metoprolol Tartrate (Lopressor) 25 mg PO Q12 [facility] Last Admin: 01/08/18 09:33 Dose: 25 mg Pantoprazole Sodium (Protonix Ec Tab) 40 mg PO DAILY [facility] Last Admin: 01/08/18 09:34 Dose: 40 mg - Labs Labs: 01/06/18 06:37 01/06/18 06:37 PT 15.4 Seconds (9.8-13.1) H 01/05/18 05:30 INR 1.4 (0.9-1.2) H 01/05/18 05:30 APTT 27.6 Seconds (25.6-37.1) 01/05/18 05:30 - Constitutional Appears: Chronically Ill - Head Exam Head Exam: NORMAL INSPECTION - Eye Exam Eye Exam: PERRL - ENT Exam Additional comments: OGT - Neck Exam Neck Exam: Normal Inspection - Respiratory Exam Respiratory Exam: Decreased Breath Sounds (at bases) - Cardiovascular Exam Cardiovascular Exam: Irregular Rhythm - GI/Abdominal Exam GI & Abdominal Exam: Soft, Normal Bowel Sounds - Extremities Exam Extremities Exam: Normal Inspection - Back Exam Additional comments: Sacral and back lesions - Neurological Exam Neurological Exam: Awake Additional comments: Follows commands, able to talk, tremor B/L U/E, generalized weakness. - Psychiatric Exam Additional comments: calm Assessment and Plan (1) Acute respiratory failure with hypoxia Status: Acute (2) Encephalopathy Status: Acute (3) Pleural effusion, bilateral Status: Resolved (4) Diastolic CHF, acute on chronic Status: Acute (5) Hx of seizure disorder Status: Chronic (6) A-fib Status: Chronic (7) CANDELARIA (acute kidney injury) Status: Resolved (8) Anemia Status: Chronic (9) Aortic valve vegetation Status: Chronic (10) SUSAN (obstructive sleep apnea) Status: Chronic (11) Pulmonary hypertension Status: Chronic (12) Clostridium difficile infection Status: Resolved (13) Hypertension Status: Chronic (14) Urinary tract infection due to Proteus Status: Acute - Assessment and Plan (Free Text) Plan: Patient' requested trial of DC NG tube in order to asses po intake of diet , Wang bag clear urine, Hematuria most likely previously traumatic from inadvertely pulling the Wang, on Maxipime for treatment of Klebsiella UTI, continue Cardizem , Lopressor , Eliquis , Digoxin and PT.
[2018-01-08 13:07] LABS: ABG ALLEN TEST YES; ARTERIAL BLOOD GAS HCO3 39.4 mmol/L (21-28); ARTERIAL BLOOD GAS HEMOGLOBIN 9.1 g/dL (11.7-17.4); ARTERIAL BLOOD GAS O2 CAPACITY 12.6 mL/dL (16-24); ARTERIAL BLOOD GAS O2 CONTENT 12.6 ML/dL (15-23); ARTERIAL BLOOD GAS O2 SAT 100.1 % (95-98); ARTERIAL BLOOD GAS PCO2 49 mm/Hg (35-45); ARTERIAL BLOOD GAS PH 7.55 (7.35-7.45); ARTERIAL BLOOD GAS PO2 121 mm/Hg (80-100); ARTERIAL BLOOD GAS TCO2 44.4 mmol/L (22-28)
[2018-01-08] MEDS: Cefepime 1 GM in Sodium Chloride 0.9% 100 ML IVPB SCH (14:30)
--- NOTE | 2018-01-08 20:38 | CP.PCM.PN ---
Subjective - Date & Time of Evaluation Date of Evaluation: 01/08/18 Time of Evaluation: 14:00 - Subjective Subjective: feeling fine, denies any complaints HR variable hematuria resolved on low dose eliquis Objective - Vital Signs/Intake and Output Vital Signs (last 24 hours): Temp Pulse Resp BP Pulse Ox 98.5 F 95 H 20 165/83 H 100 01/08/18 20:19 01/08/18 20:19 01/08/18 20:19 01/08/18 20:19 01/08/18 20:19 Intake and Output: 01/08/18 01/09/18 18:59 06:59 Intake Total 1580 Output Total 400 Balance 1180 - Medications Medications: Current Medications Apixaban (Eliquis) 2.5 mg PO BID [facility] PRN Reason: Protocol Last Admin: 01/08/18 17:00 Dose: 2.5 mg Cholecalciferol (Vitamin D) 5,000 intlu PO DAILY [facility] Last Admin: 01/08/18 09:34 Dose: 5,000 intlu Digoxin (Lanoxin) 0.125 mg IVP DAILY [facility] Last Admin: 01/08/18 09:45 Dose: 0.125 mg Diltiazem HCl (Cardizem) 30 mg PO Q6 [facility] Last Admin: 01/08/18 16:59 Dose: 30 mg Furosemide (Lasix) 40 mg IVP DAILY [facility] Last Admin: 01/08/18 09:31 Dose: 40 mg Home Med (Dutasteride [Avodart]) 0.5 mg PO DAILY [facility] Last Admin: 01/08/18 09:29 Dose: 0.5 mg Cefepime HCl 1 gm/ Sodium (Chloride) 100 mls @ 100 mls/hr IVPB DAILY@1300 [facility] PRN Reason: Protocol Lamotrigine (Lamictal) 100 mg PO Q12 [facility] Last Admin: 01/08/18 09:31 Dose: 100 mg Metoprolol Tartrate (Lopressor) 25 mg PO Q12 [facility] Last Admin: 01/08/18 09:33 Dose: 25 mg Pantoprazole Sodium (Protonix Ec Tab) 40 mg PO DAILY [facility] Last Admin: 01/08/18 09:34 Dose: 40 mg - Labs Labs: 01/06/18 06:37 01/06/18 06:37 PT 15.4 Seconds (9.8-13.1) H 01/05/18 05:30 INR 1.4 (0.9-1.2) H 01/05/18 05:30 APTT 27.6 Seconds (25.6-37.1) 01/05/18 05:30 - Constitutional Appears: Well - Head Exam Head Exam: ATRAUMATIC, NORMAL INSPECTION, NORMOCEPHALIC - Eye Exam Eye Exam: EOMI, Normal appearance, PERRL Pupil Exam: NORMAL ACCOMODATION, PERRL - ENT Exam ENT Exam: Mucous Membranes Moist, Normal Exam - Neck Exam Neck Exam: Full ROM, Normal Inspection. absent: Lymphadenopathy - Respiratory Exam Respiratory Exam: Clear to Ausculation Bilateral, Rales, NORMAL BREATHING PATTERN - Cardiovascular Exam Cardiovascular Exam: Irregular Rhythm, +S1, +S2, Murmur - GI/Abdominal Exam GI & Abdominal Exam: Soft, Normal Bowel Sounds. absent: Tenderness - Extremities Exam Extremities Exam: Normal Capillary Refill. absent: Joint Swelling, Pedal Edema - Back Exam Back Exam: rash noted - Neurological Exam Neurological Exam: Alert, Awake, Oriented x3 - Psychiatric Exam Psychiatric exam: Normal Affect, Normal Mood - Skin Skin Exam: Dry, Intact, Normal Color, Warm Assessment and Plan (1) A-fib Status: Chronic (2) Acute on chronic diastolic (congestive) heart failure Status: Chronic (3) Acute respiratory failure with hypoxia Status: Acute (4) Altered mental status Status: Acute (5) HTN (hypertension) Status: Chronic (6) Seizure disorder Status: Chronic (7) CANDELARIA (acute kidney injury) Status: Resolved (8) Encephalopathy Status: Acute (9) Hypothermia Status: Acute (10) Pleural effusion, bilateral Status: Resolved (11) Supratherapeutic international normalized ratio (INR) Status: Acute (12) Acute decompensated heart failure Status: Acute (13) Atrial fibrillation with RVR Status: Acute
[2018-01-09] MEDS: Cholecalciferol 1,000 INTLU TAB PO SCH (09:26)
[2018-01-09] MEDS: Patient's Own Med (Dutasteride [Avodart] 0.5 MG) PO SCH (09:29)
[2018-01-09] MEDS: Pantoprazole 40 mg EC Tab PO SCH (09:31)
[2018-01-09] MEDS: Digoxin 500 mcg/2ml (0.5 mg/2ml) Inj IVP SCH (09:37)
[2018-01-09] MEDS: Cefepime 1 GM in Sodium Chloride 0.9% 100 ML IVPB SCH (12:52)
--- NOTE | 2018-01-09 14:48 | CP.PCM.PN ---
Subjective - Date & Time of Evaluation Date of Evaluation: 01/09/18 Time of Evaluation: 11:30 - Subjective Subjective: F/U respiratory Failure awake , answer questions , off NG tube , no hand tremor noted today, eating 75% of meals as per Patient,s Objective - Vital Signs/Intake and Output Vital Signs (last 24 hours): Temp Pulse Resp BP Pulse Ox 97.4 F L 73 20 155/72 H 100 01/09/18 12:00 01/09/18 12:00 01/09/18 12:00 01/09/18 12:00 01/09/18 12:00 - Medications Medications: Current Medications Apixaban (Eliquis) 2.5 mg PO BID [facility] PRN Reason: Protocol Last Admin: 01/09/18 09:29 Dose: 2.5 mg Cholecalciferol (Vitamin D) 5,000 intlu PO DAILY [facility] Last Admin: 01/09/18 09:26 Dose: 5,000 intlu Digoxin (Lanoxin) 0.125 mg IVP DAILY [facility] Last Admin: 01/09/18 09:37 Dose: 0.125 mg Diltiazem HCl (Cardizem) 30 mg PO Q6 [facility] Last Admin: 01/09/18 09:27 Dose: 30 mg Home Med (Dutasteride [Avodart]) 0.5 mg PO DAILY [facility] Last Admin: 01/09/18 09:29 Dose: 0.5 mg Cefepime HCl 1 gm/ Sodium (Chloride) 100 mls @ 100 mls/hr IVPB DAILY@1300 [facility] PRN Reason: Protocol Last Admin: 01/09/18 12:52 Dose: 100 mls/hr Metoprolol Tartrate (Lopressor) 25 mg PO Q12 [facility] Last Admin: 01/09/18 09:31 Dose: 25 mg Pantoprazole Sodium (Protonix Ec Tab) 40 mg PO DAILY [facility] Last Admin: 01/09/18 09:31 Dose: 40 mg - Labs Labs: 01/06/18 06:37 01/06/18 06:37 PT 15.4 Seconds (9.8-13.1) H 01/05/18 05:30 INR 1.4 (0.9-1.2) H 01/05/18 05:30 APTT 27.6 Seconds (25.6-37.1) 02/25/18 05:30 - Constitutional Appears: Chronically Ill - Head Exam Head Exam: NORMAL INSPECTION - Eye Exam Eye Exam: PERRL - ENT Exam Additional comments: OGT - Neck Exam Neck Exam: Normal Inspection - Respiratory Exam Respiratory Exam: Decreased Breath Sounds (at bases) - Cardiovascular Exam Cardiovascular Exam: Irregular Rhythm - GI/Abdominal Exam GI & Abdominal Exam: Soft, Normal Bowel Sounds - Extremities Exam Extremities Exam: Normal Inspection - Back Exam Additional comments: Sacral and back lesions - Neurological Exam Neurological Exam: Awake Additional comments: Follows commands, able to talk, tremor b/l U/E, generalized weakness - Psychiatric Exam Additional comments: Calm - Skin Skin Exam: Warm Assessment and Plan (1) Acute respiratory failure with hypoxia Status: Acute (2) Encephalopathy Status: Acute (3) Pleural effusion, bilateral Status: Resolved (4) Diastolic CHF, acute on chronic Status: Acute (5) Hx of seizure disorder Status: Chronic (6) A-fib Status: Chronic (7) CANDELARIA (acute kidney injury) Status: Resolved (8) Anemia Status: Chronic (9) Aortic valve vegetation Status: Chronic (10) SUSAN (obstructive sleep apnea) Status: Chronic (11) Pulmonary hypertension Status: Chronic (12) Clostridium difficile infection Status: Resolved (13) Hypertension Status: Chronic (14) Urinary tract infection due to Proteus Status: Acute - Assessment and Plan (Free Text) Plan: off NG tube , eating fear puree diet , taking meds po , on high flow O2 , BIPAP at night , on Pulmonary PT by Pulmos[facility] bed, sacral area treated with medihoney , continue Eliquis , Lopressor , Cardizem , Digoxin , Maxipime , PT
[2018-01-10] MEDS: Patient's Own Med (Dutasteride [Avodart] 0.5 MG) PO SCH (09:09)
[2018-01-10] MEDS: Cholecalciferol 1,000 INTLU TAB PO SCH (09:10)
[2018-01-10] MEDS: Pantoprazole 40 mg EC Tab PO SCH (09:11)
[2018-01-10] MEDS: Digoxin 500 mcg/2ml (0.5 mg/2ml) Inj IVP SCH (09:29)
[2018-01-10] MEDS: Cefepime 1 GM in Sodium Chloride 0.9% 100 ML IVPB SCH (12:45)
--- NOTE | 2018-01-10 15:20 | CP.PCM.PN ---
Subjective - Date & Time of Evaluation Date of Evaluation: 01/10/18 Time of Evaluation: 14:20 - Subjective Subjective: F/U Respiratory Failure. Awake, smiling , able to talk , follows commands Objective - Vital Signs/Intake and Output Vital Signs (last 24 hours): Temp Pulse Resp BP Pulse Ox 97.4 F L 84 20 163/62 H 99 01/10/18 13:00 01/10/18 13:00 01/10/18 13:00 01/10/18 13:00 01/10/18 13:00 - Medications Medications: Current Medications Apixaban (Eliquis) 2.5 mg PO BID [facility] PRN Reason: Protocol Last Admin: 01/10/18 09:10 Dose: 2.5 mg Cholecalciferol (Vitamin D) 5,000 intlu PO DAILY [facility] Last Admin: 01/10/18 09:10 Dose: 5,000 intlu Digoxin (Lanoxin) 0.125 mg IVP DAILY [facility] Last Admin: 01/10/18 09:29 Dose: 0.125 mg Diltiazem HCl (Cardizem) 30 mg PO Q6 [facility] Last Admin: 01/10/18 09:09 Dose: 30 mg Home Med (Dutasteride [Avodart]) 0.5 mg PO DAILY [facility] Last Admin: 01/10/18 09:09 Dose: 0.5 mg Cefepime HCl 1 gm/ Sodium (Chloride) 100 mls @ 100 mls/hr IVPB DAILY@1300 [facility] PRN Reason: Protocol Last Admin: 01/10/18 12:45 Dose: 100 mls/hr Metoprolol Tartrate (Lopressor) 25 mg PO Q12 [facility] Last Admin: 01/10/18 09:10 Dose: 25 mg Pantoprazole Sodium (Protonix Ec Tab) 40 mg PO DAILY [facility] Last Admin: 01/10/18 09:11 Dose: 40 mg - Labs Labs: 01/06/18 06:37 01/06/18 06:37 PT 15.4 Seconds (9.8-13.1) H 01/05/18 05:30 INR 1.4 (0.9-1.2) H 01/05/18 05:30 APTT 27.6 Seconds (25.6-37.1) 01/05/18 05:30 - Constitutional Appears: Chronically Ill - Head Exam Head Exam: NORMAL INSPECTION - Eye Exam Eye Exam: PERRL - ENT Exam Additional comments: High Flow O2 - Neck Exam Additional comments: leaning to left - Respiratory Exam Respiratory Exam: Decreased Breath Sounds (at bases) - Cardiovascular Exam Cardiovascular Exam: Irregular Rhythm - GI/Abdominal Exam GI & Abdominal Exam: Soft, Normal Bowel Sounds - Extremities Exam Extremities Exam: Normal Inspection - Back Exam Additional comments: Back , Sacral lesions - Neurological Exam Neurological Exam: Alert Additional comments: able to talk , smiling , follows commands , generalized weakness - Psychiatric Exam Psychiatric exam: Normal Affect - Skin Skin Exam: Warm Assessment and Plan (1) Acute respiratory failure with hypoxia Status: Chronic (2) Encephalopathy Status: Chronic (3) Pleural effusion, bilateral Status: Resolved (4) Diastolic CHF, acute on chronic Status: Chronic (5) Hx of seizure disorder Status: Chronic (6) A-fib Status: Chronic (7) CANDELARIA (acute kidney injury) Status: Resolved (8) Anemia Status: Resolved (9) Aortic valve vegetation Status: Resolved (10) SUSAN (obstructive sleep apnea) Status: Chronic (11) Pulmonary hypertension Status: Chronic (12) Clostridium difficile infection Status: Resolved (13) Hypertension Status: Chronic (14) Urinary tract infection due to Proteus Status: Deleted - Assessment and Plan (Free Text) Plan: NG tubre to be restarted at 4pm, EEG 2-12 general slowling , no seizure activity , continue current treatment , PT reported improvement
[2018-01-10] MEDS ORDERED: Chlorhexidine Gluconate 1 APPL/PKT TP ONE (15:42)
--- NOTE | 2018-01-10 17:33 | RAD ---
HISTORY: NGT placement COMPARISON: Abdomen radiographs 01/05/2018. FINDINGS: BOWEL: A nonobstructive bowel gas pattern is appreciated. Increasing gas seen in small and large bowel loops however. No prominent free intrarenal gas or suspicious intra-abdominal calcifications. Clinical and radiographic follow-up are advised. BONES: Normal. OTHER FINDINGS: None. IMPRESSION: Increased gas seen within the lumen of various large and small bowel is but not the point that bowel obstruction is suspected at this time. No prominent free intrarenal gas. Clinical correlation is advised. Follow-up abdomen radiography or CT are available as clinically warranted.
[2018-01-11 06:42] LABS: BLOOD UREA NITROGEN 36 mg/dl (9-20); GFR AFRICAN-AMERICAN > 60; GFR NON-AFRICAN AMERICAN > 60
[2018-01-11 08:39] LABS: HEMOGLOBIN 9.6 g/dL (12.0-18.0); MEAN CELL VOLUME 89.5 fl (80.0-94.0); MEAN CORPUSCULAR HEMOGLOBIN 29.6 pg (27.0-31.0); RBC 3.26 Mil/uL (4.40-5.90); WHITE BLOOD COUNT 5.5 K/uL (4.8-10.8)
[2018-01-11] MEDS: Patient's Own Med (Dutasteride [Avodart] 0.5 MG) PO SCH (09:34)
[2018-01-11] MEDS: Cholecalciferol 1,000 INTLU TAB PO SCH (09:35)
[2018-01-11] MEDS: Pantoprazole 40 mg EC Tab PO SCH (09:35)
[2018-01-11] MEDS: Digoxin 500 mcg/2ml (0.5 mg/2ml) Inj IVP SCH (09:39)
[2018-01-11] MEDS: Cefepime 1 GM in Sodium Chloride 0.9% 100 ML IVPB SCH (13:17)
--- NOTE | 2018-01-11 13:55 | CP.PCM.PN ---
Subjective - Date & Time of Evaluation Date of Evaluation: 01/11/18 Time of Evaluation: 12:00 - Subjective Subjective: F/U Respiratory Failure. awake , smiling , answer questions, no A/D Objective - Vital Signs/Intake and Output Vital Signs (last 24 hours): Temp Pulse Resp BP Pulse Ox 98.2 F 77 20 183/84 H 98 01/11/18 12:39 01/11/18 12:39 01/11/18 12:39 01/11/18 12:39 01/11/18 12:39 - Medications Medications: Current Medications Apixaban (Eliquis) 2.5 mg PO BID [facility] PRN Reason: Protocol Last Admin: 01/11/18 09:35 Dose: 2.5 mg Cholecalciferol (Vitamin D) 5,000 intlu PO DAILY [facility] Last Admin: 01/11/18 09:35 Dose: 5,000 intlu Digoxin (Lanoxin) 0.125 mg IVP DAILY [facility] Last Admin: 01/11/18 09:39 Dose: 0.125 mg Diltiazem HCl (Cardizem) 60 mg PO Q6 [facility] Home Med (Dutasteride [Avodart]) 0.5 mg PO DAILY [facility] Last Admin: 01/11/18 09:34 Dose: 0.5 mg Cefepime HCl 1 gm/ Sodium (Chloride) 100 mls @ 100 mls/hr IVPB DAILY@1300 [facility] PRN Reason: Protocol Last Admin: 01/11/18 13:17 Dose: 100 mls/hr Metoprolol Tartrate (Lopressor) 25 mg PO Q12 [facility] Last Admin: 01/11/18 09:34 Dose: 25 mg Pantoprazole Sodium (Protonix Ec Tab) 40 mg PO DAILY [facility] Last Admin: 01/11/18 09:35 Dose: 40 mg - Labs Labs: 01/11/18 05:14 01/11/18 05:14 PT 15.4 Seconds (9.8-13.1) H 01/05/18 05:30 INR 1.4 (0.9-1.2) H 01/05/18 05:30 APTT 27.6 Seconds (25.6-37.1) 01/05/18 05:30 - Constitutional Appears: Chronically Ill - Head Exam Head Exam: NORMAL INSPECTION - Eye Exam Eye Exam: PERRL - ENT Exam Additional comments: NG tube - Neck Exam Additional comments: tendency leaning to left side - Respiratory Exam Respiratory Exam: Decreased Breath Sounds (at bases) - Cardiovascular Exam Cardiovascular Exam: Irregular Rhythm - GI/Abdominal Exam GI & Abdominal Exam: Soft, Normal Bowel Sounds - Extremities Exam Additional comments: no edema , R PICC line - Back Exam Additional comments: Back , Sacral lesions - Neurological Exam Additional comments: alert , able to talk, follows commands, generalized weakness - Psychiatric Exam Psychiatric exam: Normal Mood - Skin Skin Exam: Warm Assessment and Plan (1) Acute respiratory failure with hypoxia Status: Chronic (2) Encephalopathy Status: Chronic (3) Pleural effusion, bilateral Status: Resolved (4) Diastolic CHF, acute on chronic Status: Chronic (5) Hx of seizure disorder Status: Chronic (6) A-fib Status: Chronic (7) CANDELARIA (acute kidney injury) Status: Resolved (8) Anemia Status: Resolved (9) Aortic valve vegetation Status: Resolved (10) SUSAN (obstructive sleep apnea) Status: Chronic (11) Pulmonary hypertension Status: Chronic (12) Clostridium difficile infection Status: Resolved (13) Hypertension Status: Chronic (14) Urinary tract infection due to Proteus Status: Deleted - Assessment and Plan (Free Text) Plan: SBP high 180,s , increase Cardizem 60mg po q 6hs, continue Lopressor , Lanoxin , Eliquis , Cefepime for Tx UTI Proteus , continue PT , f/u with Supervisor [employer].
[2018-01-12 06:40] LABS: BLOOD UREA NITROGEN 32 mg/dl (9-20); CALCIUM 9.3 mg/dL (8.4-10.2); GFR AFRICAN-AMERICAN > 60; GFR NON-AFRICAN AMERICAN > 60
[2018-01-12] MEDS: Patient's Own Med (Dutasteride [Avodart] 0.5 MG) PO SCH (09:15)
[2018-01-12] MEDS: Cholecalciferol 1,000 INTLU TAB PO SCH (09:15)
[2018-01-12] MEDS: Pantoprazole 40 mg EC Tab PO SCH (09:15)
[2018-01-12] MEDS: Digoxin 500 mcg/2ml (0.5 mg/2ml) Inj IVP SCH (09:21)
[2018-01-12] MEDS: Cefepime 1 GM in Sodium Chloride 0.9% 100 ML IVPB SCH (13:12)
--- NOTE | 2018-01-12 15:02 | CP.PCM.PN ---
Subjective - Date & Time of Evaluation Date of Evaluation: 01/12/18 Time of Evaluation: 14:30 - Subjective Subjective: F/U Respiratory Failure. Alert , smiling , conversing with full sentences Objective - Vital Signs/Intake and Output Vital Signs (last 24 hours): Temp Pulse Resp BP Pulse Ox 98.3 F 61 20 154/68 H 98 01/12/18 12:07 01/12/18 12:07 01/12/18 12:07 01/12/18 12:07 01/12/18 12:07 - Medications Medications: Current Medications Apixaban (Eliquis) 2.5 mg PO BID [facility] PRN Reason: Protocol Last Admin: 01/12/18 09:15 Dose: 2.5 mg Cholecalciferol (Vitamin D) 5,000 intlu PO DAILY [facility] Last Admin: 01/12/18 09:15 Dose: 5,000 intlu Digoxin (Lanoxin) 0.125 mg IVP DAILY [facility] Last Admin: 01/12/18 09:21 Dose: 0.125 mg Diltiazem HCl (Cardizem) 60 mg PO Q6 [facility] Last Admin: 01/12/18 09:30 Dose: 60 mg Home Med (Dutasteride [Avodart]) 0.5 mg PO DAILY [facility] Last Admin: 01/12/18 09:15 Dose: 0.5 mg Cefepime HCl 1 gm/ Sodium (Chloride) 100 mls @ 100 mls/hr IVPB DAILY@1300 [facility] PRN Reason: Protocol Last Admin: 01/12/18 13:12 Dose: 100 mls/hr Metoprolol Tartrate (Lopressor) 25 mg PO Q12 [facility] Last Admin: 01/12/18 09:15 Dose: 25 mg Pantoprazole Sodium (Protonix Ec Tab) 40 mg PO DAILY [facility] Last Admin: 01/12/18 09:15 Dose: 40 mg - Labs Labs: 01/11/18 05:14 01/12/18 05:19 PT 15.4 Seconds (9.8-13.1) H 01/05/18 05:30 INR 1.4 (0.9-1.2) H 01/05/18 05:30 APTT 27.6 Seconds (25.6-37.1) 01/05/18 05:30 - Constitutional Appears: Chronically Ill - Head Exam Head Exam: NORMAL INSPECTION - Eye Exam Eye Exam: PERRL - ENT Exam Additional comments: NG tube - Neck Exam Additional comments: tendency to lean Left side - Respiratory Exam Respiratory Exam: Decreased Breath Sounds (at bases) - Cardiovascular Exam Cardiovascular Exam: Irregular Rhythm - GI/Abdominal Exam GI & Abdominal Exam: Soft, Normal Bowel Sounds - Extremities Exam Extremities Exam: Normal Inspection - Back Exam Additional comments: L-S , Back lesions - Neurological Exam Additional comments: Alert ,smiling , conversing with full sentences, move all extremituies , generalized weakness - Psychiatric Exam Psychiatric exam: Normal Mood Assessment and Plan (1) Acute respiratory failure with hypoxia Status: Chronic (2) Encephalopathy Status: Chronic (3) Pleural effusion, bilateral Status: Resolved (4) Diastolic CHF, acute on chronic Status: Chronic (5) Hx of seizure disorder Status: Chronic (6) A-fib Status: Chronic (7) CANDELARIA (acute kidney injury) Status: Resolved (8) Anemia Status: Resolved (9) Aortic valve vegetation Status: Resolved (10) SUSAN (obstructive sleep apnea) Status: Chronic (11) Pulmonary hypertension Status: Chronic (12) Clostridium difficile infection Status: Resolved (13) Hypertension Status: Chronic (14) Urinary tract infection due to Proteus Status: Deleted - Assessment and Plan (Free Text) Plan: continue Cefepime , Cardizem , Lopressor , Eliquis , Digoxin , BP more stable after increase Cardizem 60mg QID, continue PT.
[2018-01-13] MEDS ORDERED: Chlorhexidine Gluconate 1 APPL/PKT TP ONE (07:42)
--- NOTE | 2018-01-13 08:23 | CON ---
DATE: 01/10/2018 HISTORY OF PRESENT ILLNESS: The patient is a 77-year-old male with chronic medical problems. The patient being care for by his who is basically in-charged of his care and input from her is confused. He is confusing to follow, however, the patient is to be taking care of properly, he is comfortable and his treatment will be made as his. The patient's will only respond to needs to her and very difficult to discuss any further treatment or questions they may ask. Torres Gomes MD
[2018-01-13] MEDS: Patient's Own Med (Dutasteride [Avodart] 0.5 MG) PO SCH (09:48)
[2018-01-13] MEDS: Pantoprazole 40 mg EC Tab PO SCH (09:49)
[2018-01-13] MEDS: Cholecalciferol 1,000 INTLU TAB PO SCH (09:49)
[2018-01-13] MEDS: Digoxin 500 mcg/2ml (0.5 mg/2ml) Inj IVP SCH (10:00)
[2018-01-13] MEDS: Cefepime 1 GM in Sodium Chloride 0.9% 100 ML IVPB SCH (13:09)
--- NOTE | 2018-01-13 14:50 | CP.PCM.PN ---
Subjective - Date & Time of Evaluation Date of Evaluation: 01/13/18 Time of Evaluation: 12:00 - Subjective Subjective: F/U Respiratory Failure. Pt awake, answer questions, follows commands. Objective - Vital Signs/Intake and Output Vital Signs (last 24 hours): Temp Pulse Resp BP Pulse Ox 98.3 F 89 20 139/82 97 01/13/18 12:53 01/13/18 12:53 01/13/18 12:53 01/13/18 12:53 01/13/18 12:53 Intake and Output: 01/13/18 01/13/18 06:59 18:59 Intake Total 800 200 Output Total 475 Balance 325 200 - Medications Medications: Current Medications Apixaban (Eliquis) 2.5 mg PO BID [facility] PRN Reason: Protocol Last Admin: 01/13/18 09:48 Dose: 2.5 mg Cholecalciferol (Vitamin D) 5,000 intlu PO DAILY [facility] Last Admin: 01/13/18 09:49 Dose: 5,000 intlu Digoxin (Lanoxin) 0.125 mg IVP DAILY [facility] Last Admin: 01/13/18 10:00 Dose: 0.125 mg Diltiazem HCl (Cardizem) 60 mg PO Q6 [facility] Last Admin: 01/13/18 09:47 Dose: 60 mg Furosemide (Lasix) 40 mg IV DAILY [facility] Home Med (Dutasteride [Avodart]) 0.5 mg PO DAILY [facility] Last Admin: 01/13/18 09:48 Dose: 0.5 mg Cefepime HCl 1 gm/ Sodium (Chloride) 100 mls @ 100 mls/hr IVPB DAILY@1300 [facility] PRN Reason: Protocol Last Admin: 01/13/18 13:09 Dose: 100 mls/hr Lamotrigine (Lamictal) 100 mg PO Q12 [facility] Metoprolol Tartrate (Lopressor) 25 mg PO Q12 [facility] Last Admin: 01/13/18 09:48 Dose: 25 mg Pantoprazole Sodium (Protonix Ec Tab) 40 mg PO DAILY [facility] Last Admin: 01/13/18 09:49 Dose: 40 mg - Labs Labs: 01/11/18 05:14 01/12/18 05:19 PT 15.4 Seconds (9.8-13.1) H 01/05/18 05:30 INR 1.4 (0.9-1.2) H 01/05/18 05:30 APTT 27.6 Seconds (25.6-37.1) 01/05/18 05:30 - Constitutional Appears: Chronically Ill - Head Exam Head Exam: NORMAL INSPECTION - Eye Exam Eye Exam: PERRL - ENT Exam Additional comments: NG tube - Neck Exam Additional comments: Tendency to lean L side - Respiratory Exam Respiratory Exam: Decreased Breath Sounds (at bases) - Cardiovascular Exam Cardiovascular Exam: Irregular Rhythm - GI/Abdominal Exam GI & Abdominal Exam: Soft, Normal Bowel Sounds - Extremities Exam Extremities Exam: Normal Inspection - Back Exam Additional comments: L-S, back lesions - Neurological Exam Neurological Exam: Alert Additional comments: Smiling, conversing with full sentences, moves all extremities, generalized weakness. - Psychiatric Exam Psychiatric exam: Normal Mood - Skin Skin Exam: Warm Assessment and Plan (1) Acute respiratory failure with hypoxia Status: Acute (2) Encephalopathy Status: Acute (3) Pleural effusion, bilateral Status: Resolved (4) Diastolic CHF, acute on chronic Status: Acute (5) Hx of seizure disorder Status: Chronic (6) A-fib Status: Chronic (7) CANDELARIA (acute kidney injury) Status: Resolved (8) Anemia Status: Chronic (9) Aortic valve vegetation Status: Chronic (10) SUSAN (obstructive sleep apnea) Status: Chronic (11) Pulmonary hypertension Status: Chronic (12) Clostridium difficile infection Status: Resolved (13) Hypertension Status: Chronic (14) Urinary tract infection due to Proteus Status: Acute - Assessment and Plan (Free Text) Plan: Continue current Tx and PT.
[2018-01-14] MEDS: Digoxin 500 mcg/2ml (0.5 mg/2ml) Inj IVP SCH (08:24)
[2018-01-14] MEDS: Cholecalciferol 1,000 INTLU TAB PO SCH (08:26)
[2018-01-14] MEDS: Pantoprazole 40 mg EC Tab PO SCH (08:26)
[2018-01-14] MEDS: Patient's Own Med (Dutasteride [Avodart] 0.5 MG) PO SCH (08:26)
[2018-01-14] MEDS: Cefepime 1 GM in Sodium Chloride 0.9% 100 ML IVPB SCH (13:01)
--- NOTE | 2018-01-14 16:53 | CP.PCM.PN ---
Subjective - Date & Time of Evaluation Date of Evaluation: 01/14/18 Time of Evaluation: 11:30 - Subjective Subjective: F/U Respiratory Failure. awake,answer questions , follows commands Objective - Vital Signs/Intake and Output Vital Signs (last 24 hours): Temp Pulse Resp BP Pulse Ox 98.4 F 74 18 147/68 100 01/14/18 15:42 01/14/18 16:39 01/14/18 15:42 01/14/18 16:39 01/14/18 15:42 - Medications Medications: Current Medications Apixaban (Eliquis) 2.5 mg PO BID [facility] PRN Reason: Protocol Last Admin: 01/14/18 16:39 Dose: 2.5 mg Cholecalciferol (Vitamin D) 5,000 intlu PO DAILY [facility] Last Admin: 01/14/18 08:26 Dose: 5,000 intlu Digoxin (Lanoxin) 0.125 mg IVP DAILY [facility] Last Admin: 01/14/18 08:24 Dose: 0.125 mg Diltiazem HCl (Cardizem) 60 mg PO Q6 [facility] Last Admin: 01/14/18 16:39 Dose: 60 mg Furosemide (Lasix) 40 mg IV DAILY [facility] Last Admin: 01/14/18 08:23 Dose: 40 mg Home Med (Dutasteride [Avodart]) 0.5 mg PO DAILY [facility] Last Admin: 01/14/18 08:26 Dose: 0.5 mg Cefepime HCl 1 gm/ Sodium (Chloride) 100 mls @ 100 mls/hr IVPB DAILY@1300 [facility] PRN Reason: Protocol Last Admin: 01/14/18 13:01 Dose: 100 mls/hr Lamotrigine (Lamictal) 100 mg PO Q12 [facility] Last Admin: 01/14/18 08:24 Dose: 100 mg Metoprolol Tartrate (Lopressor) 25 mg PO Q12 [facility] Last Admin: 01/14/18 08:25 Dose: 25 mg Pantoprazole Sodium (Protonix Ec Tab) 40 mg PO DAILY [facility] Last Admin: 01/14/18 08:26 Dose: 40 mg - Labs Labs: 01/11/18 05:14 01/12/18 05:19 PT 15.4 Seconds (9.8-13.1) H 01/05/18 05:30 INR 1.4 (0.9-1.2) H 01/05/18 05:30 APTT 27.6 Seconds (25.6-37.1) 01/05/18 05:30 - Constitutional Appears: Chronically Ill - Head Exam Head Exam: NORMAL INSPECTION - Eye Exam Eye Exam: PERRL - ENT Exam Additional comments: NGT, High Flow O2 - Neck Exam Additional comments: tendency to lean L side. - Respiratory Exam Respiratory Exam: Decreased Breath Sounds (at bases) - Cardiovascular Exam Cardiovascular Exam: Irregular Rhythm - GI/Abdominal Exam GI & Abdominal Exam: Soft, Normal Bowel Sounds - Extremities Exam Extremities Exam: Normal Inspection - Back Exam Additional comments: L-S, back lesion - Neurological Exam Neurological Exam: Alert Additional comments: Smiling, conversing with full sentences, moves all extremities, generalized weakness. - Psychiatric Exam Psychiatric exam: Normal Mood - Skin Skin Exam: Warm Assessment and Plan (1) Acute respiratory failure with hypoxia Status: Chronic (2) Encephalopathy Status: Chronic (3) Pleural effusion, bilateral Status: Resolved (4) Diastolic CHF, acute on chronic Status: Chronic (5) Hx of seizure disorder Status: Chronic (6) A-fib Status: Chronic (7) CANDELARIA (acute kidney injury) Status: Resolved (8) Anemia Status: Resolved (9) Aortic valve vegetation Status: Resolved (10) SUSAN (obstructive sleep apnea) Status: Chronic (11) Pulmonary hypertension Status: Chronic (12) Clostridium difficile infection Status: Resolved (13) Hypertension Status: Chronic (14) Urinary tract infection due to Proteus Status: Deleted - Assessment and Plan (Free Text) Plan: continue Cefepime, Cardizem ,Lopressor , Lasix , Digoxin , Eliquis , Lamictal, Protonix , PT
[2018-01-15] MEDS: Pantoprazole 40 mg EC Tab PO SCH (08:53)
[2018-01-15] MEDS: Cholecalciferol 1,000 INTLU TAB PO SCH (08:53)
[2018-01-15] MEDS: Patient's Own Med (Dutasteride [Avodart] 0.5 MG) PO SCH (08:53)
[2018-01-15] MEDS: Digoxin 500 mcg/2ml (0.5 mg/2ml) Inj IVP SCH (09:05)
[2018-01-15] MEDS: Cefepime 1 GM in Sodium Chloride 0.9% 100 ML IVPB SCH (13:15)
--- NOTE | 2018-01-15 13:19 | CP.PCM.PN ---
Subjective - Date & Time of Evaluation Date of Evaluation: 01/15/18 Time of Evaluation: 11:00 - Subjective Subjective: F/U Respiratory Failure. complains of epigastric pain Objective - Vital Signs/Intake and Output Vital Signs (last 24 hours): Temp Pulse Resp BP Pulse Ox 97.3 F L 62 18 118/78 99 01/15/18 11:57 01/15/18 11:57 01/15/18 11:57 01/15/18 11:57 01/15/18 11:57 - Medications Medications: Current Medications Apixaban (Eliquis) 2.5 mg PO BID [facility] PRN Reason: Protocol Last Admin: 01/15/18 08:50 Dose: 2.5 mg Cholecalciferol (Vitamin D) 5,000 intlu PO DAILY [facility] Last Admin: 01/15/18 08:53 Dose: 5,000 intlu Digoxin (Lanoxin) 0.125 mg IVP DAILY [facility] Last Admin: 01/15/18 09:05 Dose: 0.125 mg Diltiazem HCl (Cardizem) 60 mg PO Q6 [facility] Last Admin: 01/15/18 09:04 Dose: 60 mg Furosemide (Lasix) 40 mg IV DAILY [facility] Last Admin: 01/15/18 08:52 Dose: 40 mg Home Med (Dutasteride [Avodart]) 0.5 mg PO DAILY [facility] Last Admin: 01/15/18 08:53 Dose: 0.5 mg Cefepime HCl 1 gm/ Sodium (Chloride) 100 mls @ 100 mls/hr IVPB DAILY@1300 [facility] PRN Reason: Protocol Last Admin: 01/15/18 13:15 Dose: 100 mls/hr Lamotrigine (Lamictal) 100 mg PO Q12 [facility] Last Admin: 01/15/18 08:51 Dose: 100 mg Metoprolol Tartrate (Lopressor) 25 mg PO Q12 [facility] Last Admin: 01/15/18 08:51 Dose: 25 mg Pantoprazole Sodium (Protonix Ec Tab) 40 mg PO DAILY [facility] Last Admin: 01/15/18 08:53 Dose: 40 mg - Labs Labs: 01/11/18 05:14 01/12/18 05:19 PT 15.4 Seconds (9.8-13.1) H 01/05/18 05:30 INR 1.4 (0.9-1.2) H 01/05/18 05:30 APTT 27.6 Seconds (25.6-37.1) 01/05/18 05:30 - Constitutional Appears: Chronically Ill - Head Exam Head Exam: NORMAL INSPECTION - Eye Exam Eye Exam: PERRL - ENT Exam Additional comments: High flow O2 , NG tube - Neck Exam Additional comments: tendency to lean to left side - Respiratory Exam Respiratory Exam: Decreased Breath Sounds (at bases) - Cardiovascular Exam Cardiovascular Exam: Irregular Rhythm - GI/Abdominal Exam GI & Abdominal Exam: Soft, Tenderness (epigastric area , no rebound), Normal Bowel Sounds - Extremities Exam Extremities Exam: Normal Inspection - Back Exam Additional comments: back , L-S lesions improved - Neurological Exam Neurological Exam: Alert, Awake Additional comments: talking , follows commands , generalized weakness - Psychiatric Exam Psychiatric exam: Anxious - Skin Skin Exam: Warm Assessment and Plan (1) Acute respiratory failure with hypoxia Status: Chronic (2) Encephalopathy Status: Chronic (3) Pleural effusion, bilateral Status: Resolved (4) Diastolic CHF, acute on chronic Status: Chronic (5) Hx of seizure disorder Status: Chronic (6) A-fib Status: Chronic (7) CANDELARIA (acute kidney injury) Status: Resolved (8) Anemia Status: Resolved (9) Aortic valve vegetation Status: Resolved (10) SUSAN (obstructive sleep apnea) Status: Chronic (11) Pulmonary hypertension Status: Chronic (12) Clostridium difficile infection Status: Resolved (13) Hypertension Status: Chronic (14) Urinary tract infection due to Proteus Status: Deleted (15) Abdominal pain Status: Resolved - Assessment and Plan (Free Text) Plan: hold NG tube feeding, f/u flat plate abd , CXR, continue rest of treatment.
[2018-01-16] MEDS: Patient's Own Med (Dutasteride [Avodart] 0.5 MG) PO SCH (09:19)
[2018-01-16] MEDS: Pantoprazole 40 mg EC Tab PO SCH (09:19)
[2018-01-16] MEDS: Cholecalciferol 1,000 INTLU TAB PO SCH (09:19)
--- NOTE | 2018-01-16 09:36 | RAD ---
HISTORY: abdominal pain COMPARISON: No prior. FINDINGS: BOWEL: Nonspecific bowel gas pattern. No gross free air. BONES: Osteopenia. Degenerative changes. OTHER FINDINGS: Small bilateral pleural effusions. IMPRESSION: Nonspecific bowel gas pattern.
[2018-01-16] MEDS: Digoxin 500 mcg/2ml (0.5 mg/2ml) Inj IVP SCH (09:40)
[2018-01-16] MEDS: Cefepime 1 GM in Sodium Chloride 0.9% 100 ML IVPB SCH (12:34)
--- NOTE | 2018-01-16 14:11 | CP.PCM.PN ---
Subjective - Date & Time of Evaluation Date of Evaluation: 01/16/18 Time of Evaluation: 11:10 - Subjective Subjective: F/U Respiratory failure Awake , not complaining of abdominal pain today Objective - Vital Signs/Intake and Output Vital Signs (last 24 hours): Temp Pulse Resp BP Pulse Ox 98.3 F 60 20 163/71 H 98 01/16/18 13:00 01/16/18 13:00 01/16/18 13:00 01/16/18 13:00 01/16/18 13:00 Intake and Output: 01/16/18 01/16/18 06:59 18:59 Intake Total 450 Output Total 600 Balance -150 - Medications Medications: Current Medications Apixaban (Eliquis) 2.5 mg PO BID [facility] PRN Reason: Protocol Last Admin: 01/16/18 09:19 Dose: 2.5 mg Cholecalciferol (Vitamin D) 5,000 intlu PO DAILY [facility] Last Admin: 01/16/18 09:19 Dose: 5,000 intlu Digoxin (Lanoxin) 0.125 mg IVP DAILY [facility] Last Admin: 01/16/18 09:40 Dose: 0.125 mg Diltiazem HCl (Cardizem) 60 mg PO Q6 [facility] Last Admin: 01/16/18 09:20 Dose: 60 mg Furosemide (Lasix) 40 mg IV DAILY [facility] Last Admin: 01/16/18 09:18 Dose: 40 mg Home Med (Dutasteride [Avodart]) 0.5 mg PO DAILY [facility] Last Admin: 01/16/18 09:19 Dose: 0.5 mg Cefepime HCl 1 gm/ Sodium (Chloride) 100 mls @ 100 mls/hr IVPB DAILY@1300 [facility] PRN Reason: Protocol Last Admin: 01/16/18 12:34 Dose: 100 mls/hr Lamotrigine (Lamictal) 100 mg PO Q12 [facility] Last Admin: 01/16/18 09:19 Dose: 100 mg Metoprolol Tartrate (Lopressor) 25 mg PO Q12 [facility] Last Admin: 01/16/18 09:19 Dose: 25 mg Pantoprazole Sodium (Protonix Ec Tab) 40 mg PO DAILY [facility] Last Admin: 01/16/18 09:19 Dose: 40 mg - Labs Labs: 01/11/18 05:14 01/12/18 05:19 PT 15.4 Seconds (9.8-13.1) H 01/05/18 05:30 INR 1.4 (0.9-1.2) H 01/05/18 05:30 APTT 27.6 Seconds (25.6-37.1) 01/05/18 05:30 - Constitutional Appears: Chronically Ill - Head Exam Head Exam: NORMAL INSPECTION - Eye Exam Eye Exam: PERRL - ENT Exam Additional comments: NGT, on high flow O2. - Neck Exam Additional comments: Tendency to lean L side - Respiratory Exam Respiratory Exam: Decreased Breath Sounds (at bases) - Cardiovascular Exam Cardiovascular Exam: Irregular Rhythm - GI/Abdominal Exam GI & Abdominal Exam: Soft, Tenderness (epigastric area), Normal Bowel Sounds. absent: Rebound - Extremities Exam Extremities Exam: Normal Inspection - Back Exam Additional comments: Back, L-S lesion improved - Neurological Exam Neurological Exam: Alert Additional comments: Talking, follows commands, generalized weakness. - Psychiatric Exam Psychiatric exam: Anxious - Skin Skin Exam: Warm Assessment and Plan (1) Acute respiratory failure with hypoxia Status: Acute (2) Encephalopathy Status: Acute (3) Pleural effusion, bilateral Status: Resolved (4) Diastolic CHF, acute on chronic Status: Acute (5) Hx of seizure disorder Status: Chronic (6) A-fib Status: Chronic (7) CANDELARIA (acute kidney injury) Status: Resolved (8) Anemia Status: Chronic (9) Aortic valve vegetation Status: Chronic (10) SUSAN (obstructive sleep apnea) Status: Chronic (11) Pulmonary hypertension Status: Chronic (12) Clostridium difficile infection Status: Resolved (13) Hypertension Status: Chronic (14) Urinary tract infection due to Proteus Status: Acute (15) Abdominal pain Status: Acute - Assessment and Plan (Free Text) Plan: Continue Cefepime , Cardizem , Lopressor, Lasix , Digoxin , Lamictal , High Flow O2 , BIPAP overnight , PT .
[2018-01-17] MEDS ORDERED: Chlorhexidine Gluconate 1 APPL/PKT TP ONE (08:21)
--- NOTE | 2018-01-17 09:48 | RAD ---
PROCEDURE: CHEST RADIOGRAPH, 1 VIEW HISTORY: Check NGT placement. COMPARISON: Comparison made with prior chest radiograph dated 01/05/2018 the all FINDINGS: There appears to be in situ NGT, the distal aspect of which lies well below EG junction to the right of midline however the tip has not been included on this study. In situ right-sided PICC line with tip in the SVC. LUNGS: Lung apices are obscured by overlying facial soft tissue and mandible artifact. Bibasilar atelectasis and or infiltrates and bilateral effusions PLEURA: As above. No apparent pneumothorax CARDIOVASCULAR: Heart size unchanged. In situ single lead pacemaker also unchanged. OSSEOUS STRUCTURES: No significant abnormalities. VISUALIZED UPPER ABDOMEN: Normal. OTHER FINDINGS: None. IMPRESSION: Support lines and tubes as above. Bibasilar atelectasis and or infiltrates and bilateral effusions.
[2018-01-17] MEDS: Patient's Own Med (Dutasteride [Avodart] 0.5 MG) PO SCH (11:46)
[2018-01-17] MEDS: Pantoprazole 40 mg EC Tab PO SCH (11:54)
[2018-01-17] MEDS: Cholecalciferol 1,000 INTLU TAB PO SCH (11:54)
[2018-01-17] MEDS: Digoxin 500 mcg/2ml (0.5 mg/2ml) Inj IVP SCH (11:59)
--- NOTE | 2018-01-17 13:20 | RAD ---
HISTORY: NGT placement confirmation; please include tip COMPARISON: Comparison made with prior study 01/17/2018 at 8:15 a.m. FINDINGS: Apparent in situ NGT, the tip of which appears to lie left upper quadrant of the abdomen however note that the si the distal aspect of the NGT in the lower mediastinum not visualized No change right-sided PICC line. LUNGS: Bilateral lower lobe alveolar-type infiltrates and bilateral effusions. PLEURA: No significant pleural effusion identified, no pneumothorax apparent. CARDIOVASCULAR: Normal. OSSEOUS STRUCTURES: No significant abnormalities. VISUALIZED UPPER ABDOMEN: Normal. OTHER FINDINGS: None. IMPRESSION: Note that the lung apices have been excluded from the exam Mild bibasilar atelectasis and/or infiltrates with bilateral effusions. In situ NGT the tip of which appears to be located left upper quadrant of the abdomen however note that the distal aspect of the NGT at the level of the lower mediastinum is not visualized. Note these findings were discussed with RENETTA Berman approximately 1 p.m. with written down and read back verification.
--- NOTE | 2018-01-17 16:08 | CP.PCM.PN ---
Objective - Vital Signs/Intake and Output Vital Signs (last 24 hours): Temp Pulse Resp BP Pulse Ox 97.6 F 67 19 158/72 H 99 01/17/18 12:58 01/17/18 12:58 01/17/18 15:28 01/17/18 12:58 01/17/18 12:58 Intake and Output: 01/17/18 01/17/18 06:59 18:59 Intake Total 120 Output Total 350 Balance -230 - Medications Medications: Current Medications Apixaban (Eliquis) 2.5 mg PO BID [facility] PRN Reason: Protocol Last Admin: 01/17/18 11:49 Dose: 2.5 mg Cholecalciferol (Vitamin D) 5,000 intlu PO DAILY [facility] Last Admin: 01/17/18 11:54 Dose: 5,000 intlu Digoxin (Lanoxin) 0.125 mg IVP DAILY [facility] Last Admin: 01/17/18 11:59 Dose: Not Given Diltiazem HCl (Cardizem) 60 mg PO Q6 [facility] Last Admin: 01/17/18 11:49 Dose: 60 mg Furosemide (Lasix) 40 mg IV DAILY [facility] Last Admin: 01/17/18 11:51 Dose: 40 mg Home Med (Dutasteride [Avodart]) 0.5 mg PO DAILY [facility] Last Admin: 01/17/18 11:46 Dose: 0.5 mg Cefepime HCl 1 gm/ Sodium (Chloride) 100 mls @ 100 mls/hr IVPB DAILY@1300 [facility] PRN Reason: Protocol Last Admin: 01/16/18 12:34 Dose: 100 mls/hr Lamotrigine (Lamictal) 100 mg PO Q12 [facility] Last Admin: 01/17/18 11:50 Dose: 100 mg Metoprolol Tartrate (Lopressor) 25 mg PO Q12 [facility] Last Admin: 01/17/18 11:52 Dose: 25 mg Pantoprazole Sodium (Protonix Ec Tab) 40 mg PO DAILY [facility] Last Admin: 01/17/18 11:54 Dose: 40 mg - Labs Labs: 01/11/18 05:14 01/12/18 05:19 PT 15.4 Seconds (9.8-13.1) H 01/05/18 05:30 INR 1.4 (0.9-1.2) H 01/05/18 05:30 APTT 27.6 Seconds (25.6-37.1) 01/05/18 05:30 Assessment and Plan (1) Acute respiratory failure with hypoxia Status: Acute (2) Encephalopathy Status: Acute (3) Pleural effusion, bilateral Status: Resolved (4) Diastolic CHF, acute on chronic Status: Acute (5) Hx of seizure disorder Status: Chronic (6) A-fib Status: Chronic (7) CANDELARIA (acute kidney injury) Status: Resolved (8) Anemia Status: Chronic (9) Aortic valve vegetation Status: Chronic (10) SUSAN (obstructive sleep apnea) Status: Chronic (11) Pulmonary hypertension Status: Chronic (12) Clostridium difficile infection Status: Resolved (13) Hypertension Status: Chronic (14) Urinary tract infection due to Proteus Status: Acute (15) Abdominal pain Status: Acute
--- NOTE | 2018-01-17 16:08 | CP.PCM.PN ---
Subjective - Date & Time of Evaluation Date of Evaluation: 01/17/18 Time of Evaluation: 13:00 - Subjective Subjective: F/U Respiratory failure. Pt awake, no A/D, follows commands. Objective - Vital Signs/Intake and Output Vital Signs (last 24 hours): Temp Pulse Resp BP Pulse Ox 97.6 F 67 19 158/72 H 99 01/17/18 12:58 01/17/18 12:58 01/17/18 15:28 01/17/18 12:58 01/17/18 12:58 Intake and Output: 01/17/18 01/17/18 06:59 18:59 Intake Total 120 Output Total 350 Balance -230 - Medications Medications: Current Medications Apixaban (Eliquis) 2.5 mg PO BID [facility] PRN Reason: Protocol Last Admin: 01/17/18 11:49 Dose: 2.5 mg Cholecalciferol (Vitamin D) 5,000 intlu PO DAILY [facility] Last Admin: 01/17/18 11:54 Dose: 5,000 intlu Digoxin (Lanoxin) 0.125 mg IVP DAILY [facility] Last Admin: 01/17/18 11:59 Dose: Not Given Diltiazem HCl (Cardizem) 60 mg PO Q6 [facility] Last Admin: 01/17/18 11:49 Dose: 60 mg Furosemide (Lasix) 40 mg IV DAILY [facility] Last Admin: 01/17/18 11:51 Dose: 40 mg Home Med (Dutasteride [Avodart]) 0.5 mg PO DAILY [facility] Last Admin: 01/17/18 11:46 Dose: 0.5 mg Cefepime HCl 1 gm/ Sodium (Chloride) 100 mls @ 100 mls/hr IVPB DAILY@1300 [facility] PRN Reason: Protocol Last Admin: 01/16/18 12:34 Dose: 100 mls/hr Lamotrigine (Lamictal) 100 mg PO Q12 [facility] Last Admin: 01/17/18 11:50 Dose: 100 mg Metoprolol Tartrate (Lopressor) 25 mg PO Q12 [facility] Last Admin: 01/17/18 11:52 Dose: 25 mg Pantoprazole Sodium (Protonix Ec Tab) 40 mg PO DAILY [facility] Last Admin: 01/17/18 11:54 Dose: 40 mg - Labs Labs: 01/11/18 05:14 01/12/18 05:19 PT 15.4 Seconds (9.8-13.1) H 01/05/18 05:30 INR 1.4 (0.9-1.2) H 01/05/18 05:30 APTT 27.6 Seconds (25.6-37.1) 01/05/18 05:30 - Constitutional Appears: Chronically Ill - Head Exam Head Exam: NORMAL INSPECTION - Eye Exam Eye Exam: PERRL - ENT Exam Additional comments: High flow O2, NGT - Neck Exam Additional comments: Tendency to lean on L side - Respiratory Exam Respiratory Exam: Decreased Breath Sounds (at bases) - Cardiovascular Exam Cardiovascular Exam: Irregular Rhythm - GI/Abdominal Exam GI & Abdominal Exam: Soft, Tenderness (epigastric area), Normal Bowel Sounds - Extremities Exam Extremities Exam: Normal Inspection - Back Exam Additional comments: Back L-S lesion improved - Neurological Exam Neurological Exam: Alert Additional comments: Talking, follows commands, generalized weakness. - Skin Skin Exam: Warm Assessment and Plan (1) Acute respiratory failure with hypoxia Status: Chronic (2) Encephalopathy Status: Acute (3) Pleural effusion, bilateral Status: Resolved (4) Diastolic CHF, acute on chronic Status: Chronic (5) Hx of seizure disorder Status: Chronic (6) A-fib Status: Chronic (7) CANDELARIA (acute kidney injury) Status: Resolved (8) Anemia Status: Chronic (9) Aortic valve vegetation Status: Chronic (10) SUSAN (obstructive sleep apnea) Status: Chronic (11) Pulmonary hypertension Status: Chronic (12) Clostridium difficile infection Status: Resolved (13) Hypertension Status: Chronic (14) Urinary tract infection due to Proteus Status: Acute (15) Abdominal pain Status: Resolved - Assessment and Plan (Free Text) Plan: F/U CXR, continue current Tx.
[2018-01-17] MEDS: Cefepime 1 GM in Sodium Chloride 0.9% 100 ML IVPB SCH (16:12)
[2018-01-18] MEDS: Digoxin 500 mcg/2ml (0.5 mg/2ml) Inj IVP SCH (08:00)
[2018-01-18] MEDS: Pantoprazole 40 mg EC Tab PO SCH (08:02)
[2018-01-18] MEDS: Cholecalciferol 1,000 INTLU TAB PO SCH (08:02)
[2018-01-18] MEDS: Patient's Own Med (Dutasteride [Avodart] 0.5 MG) PO SCH (08:03)
[2018-01-18] MEDS: Cefepime 1 GM in Sodium Chloride 0.9% 100 ML IVPB SCH (12:35)
--- NOTE | 2018-01-18 17:04 | CP.PCM.PN ---
Subjective - Date & Time of Evaluation Date of Evaluation: 01/18/18 Time of Evaluation: 14:20 - Subjective Subjective: F/U Respiratory Failure. Eyes open , answer questions , follows commands , Objective - Vital Signs/Intake and Output Vital Signs (last 24 hours): Temp Pulse Resp BP Pulse Ox 98.3 F 65 18 178/80 H 100 01/18/18 16:05 01/18/18 16:05 01/18/18 16:05 01/18/18 16:05 01/18/18 16:05 Intake and Output: 01/18/18 01/18/18 06:59 18:59 Intake Total 800 Output Total 300 Balance 500 - Medications Medications: Current Medications Apixaban (Eliquis) 2.5 mg PO BID [facility] PRN Reason: Protocol Last Admin: 01/18/18 08:00 Dose: 2.5 mg Cholecalciferol (Vitamin D) 5,000 intlu PO DAILY [facility] Last Admin: 01/18/18 08:02 Dose: 5,000 intlu Digoxin (Lanoxin) 0.125 mg IVP DAILY [facility] Last Admin: 01/18/18 08:00 Dose: 0.125 mg Diltiazem HCl (Cardizem) 60 mg PO Q6 [facility] Last Admin: 01/18/18 12:35 Dose: 60 mg Furosemide (Lasix) 40 mg IV DAILY [facility] Last Admin: 01/18/18 08:01 Dose: 40 mg Home Med (Dutasteride [Avodart]) 0.5 mg PO DAILY [facility] Last Admin: 01/18/18 08:03 Dose: 0.5 mg Lamotrigine (Lamictal) 100 mg PO Q12 [facility] Last Admin: 01/18/18 08:00 Dose: 100 mg Metoprolol Tartrate (Lopressor) 25 mg PO Q12 [facility] Last Admin: 01/18/18 08:02 Dose: 25 mg Pantoprazole Sodium (Protonix Ec Tab) 40 mg PO DAILY [facility] Last Admin: 01/18/18 08:02 Dose: 40 mg - Labs Labs: 01/11/18 05:14 01/12/18 05:19 PT 15.4 Seconds (9.8-13.1) H 01/05/18 05:30 INR 1.4 (0.9-1.2) H 01/05/18 05:30 APTT 27.6 Seconds (25.6-37.1) 01/05/18 05:30 - Constitutional Appears: Chronically Ill - Head Exam Head Exam: NORMAL INSPECTION - Eye Exam Eye Exam: PERRL - ENT Exam Additional comments: NG tube - Neck Exam Neck Exam: Normal Inspection - Respiratory Exam Respiratory Exam: Decreased Breath Sounds (at bases) - Cardiovascular Exam Cardiovascular Exam: Irregular Rhythm - GI/Abdominal Exam GI & Abdominal Exam: Soft, Normal Bowel Sounds - Extremities Exam Extremities Exam: Normal Inspection - Back Exam Additional comments: Back , LS lmproved - Psychiatric Exam Psychiatric exam: Normal Affect, Normal Mood - Skin Skin Exam: Warm Assessment and Plan (1) Acute respiratory failure with hypoxia Status: Chronic (2) Encephalopathy Status: Acute (3) Pleural effusion, bilateral Status: Resolved (4) Diastolic CHF, acute on chronic Status: Chronic (5) Hx of seizure disorder Status: Chronic (6) A-fib Status: Chronic (7) CANDELARIA (acute kidney injury) Status: Resolved (8) Anemia Status: Chronic (9) Aortic valve vegetation Status: Chronic (10) SUSAN (obstructive sleep apnea) Status: Chronic (11) Pulmonary hypertension Status: Chronic (12) Clostridium difficile infection Status: Resolved (13) Hypertension Status: Chronic (14) Urinary tract infection due to Proteus Status: Acute (15) Abdominal pain Status: Resolved - Assessment and Plan (Free Text) Plan: continue High Flow O2 , BIPAP overnight , Dialtizem , Metropolol , Lopressor , Lasix , Digoxin , Eliquis and PT , clear mucus from rectum reported by nurses stool for C-S, leukocytes.
[2018-01-19] MEDS: Patient's Own Med (Dutasteride [Avodart] 0.5 MG) PO SCH (10:03)
[2018-01-19] MEDS: Pantoprazole 40 mg EC Tab PO SCH (10:06)
[2018-01-19] MEDS: Cholecalciferol 1,000 INTLU TAB PO SCH (10:06)
[2018-01-19] MEDS: Digoxin 500 mcg/2ml (0.5 mg/2ml) Inj IVP SCH (10:14)
[2018-01-19] MEDS ORDERED: Chlorhexidine Gluconate 1 APPL/PKT TP ONE (18:57)
--- NOTE | 2018-01-19 19:43 | CP.PCM.PN ---
Subjective - Date & Time of Evaluation Date of Evaluation: 01/19/18 Time of Evaluation: 18:20 - Subjective Subjective: F/U respiratory failure Objective - Vital Signs/Intake and Output Vital Signs (last 24 hours): Temp Pulse Resp BP Pulse Ox 97.8 F 66 20 146/71 100 01/19/18 16:00 01/19/18 17:31 01/19/18 16:00 01/19/18 17:31 01/19/18 16:00 - Medications Medications: Current Medications Apixaban (Eliquis) 2.5 mg PO BID [facility] PRN Reason: Protocol Last Admin: 01/19/18 17:31 Dose: 2.5 mg Cholecalciferol (Vitamin D) 5,000 intlu PO DAILY [facility] Last Admin: 01/19/18 10:06 Dose: 5,000 intlu Digoxin (Lanoxin) 0.125 mg IVP DAILY [facility] Last Admin: 01/19/18 10:14 Dose: 0.125 mg Diltiazem HCl (Cardizem) 60 mg PO Q6 [facility] Last Admin: 01/19/18 17:31 Dose: 60 mg Furosemide (Lasix) 40 mg IV DAILY [facility] Last Admin: 01/19/18 10:04 Dose: 40 mg Home Med (Dutasteride [Avodart]) 0.5 mg PO DAILY [facility] Last Admin: 01/19/18 10:03 Dose: 0.5 mg Lamotrigine (Lamictal) 100 mg PO Q12 [facility] Last Admin: 01/19/18 10:04 Dose: 100 mg Metoprolol Tartrate (Lopressor) 25 mg PO Q12 [facility] Last Admin: 01/19/18 10:06 Dose: 25 mg Pantoprazole Sodium (Protonix Ec Tab) 40 mg PO DAILY [facility] Last Admin: 01/19/18 10:06 Dose: 40 mg - Labs Labs: 01/11/18 05:14 01/12/18 05:19 PT 15.4 Seconds (9.8-13.1) H 01/05/18 05:30 INR 1.4 (0.9-1.2) H 01/05/18 05:30 APTT 27.6 Seconds (25.6-37.1) 01/05/18 05:30 - Constitutional Appears: Chronically Ill - Head Exam Head Exam: NORMAL INSPECTION - Eye Exam Eye Exam: PERRL - ENT Exam Additional comments: High flow O2, NGT - Neck Exam Additional comments: Tendency to lean to left side. - Respiratory Exam Respiratory Exam: Decreased Breath Sounds (at bases) - Cardiovascular Exam Cardiovascular Exam: Irregular Rhythm - GI/Abdominal Exam GI & Abdominal Exam: Soft, Tenderness (epigastric area), Normal Bowel Sounds - Extremities Exam Extremities Exam: Normal Inspection - Back Exam Additional comments: Back, L-S lesion improved. - Neurological Exam Neurological Exam: Alert Additional comments: Talking, follows commands, generalized weakness. - Psychiatric Exam Additional comments: Calm - Skin Skin Exam: Warm Assessment and Plan (1) Acute respiratory failure with hypoxia Status: Chronic (2) Encephalopathy Status: Acute (3) Pleural effusion, bilateral Status: Resolved (4) Diastolic CHF, acute on chronic Status: Chronic (5) Hx of seizure disorder Status: Chronic (6) A-fib Status: Chronic (7) CANDELARIA (acute kidney injury) Status: Resolved (8) Anemia Status: Chronic (9) Aortic valve vegetation Status: Chronic (10) SUSAN (obstructive sleep apnea) Status: Chronic (11) Pulmonary hypertension Status: Chronic (12) Clostridium difficile infection Status: Resolved (13) Hypertension Status: Chronic (14) Urinary tract infection due to Proteus Status: Acute (15) Abdominal pain Status: Resolved
[2018-01-20 06:55] LABS: ALB/GLOB RATIO 0.8 (1.0-2.1); ALBUMIN 3.5 g/dL (3.5-5.0); ALT/SGPT 27 U/L (21-72); AST/SGOT 28 U/L (17-59); BASO # 0.1 K/uL (0.0-0.2); BASO % 0.9 % (0.0-2.0); BLOOD UREA NITROGEN 30 mg/dl (9-20); CALCIUM 9.4 mg/dL (8.4-10.2); EOS # 0.2 K/uL (0.0-0.7); EOS % 3.6 % (0.0-4.0); GFR AFRICAN-AMERICAN > 60; GFR NON-AFRICAN AMERICAN > 60; HEMOGLOBIN 10.3 g/dL (12.0-18.0); LYMPH # 1.1 K/uL (1.0-4.3); LYMPH % 16.4 % (20.0-40.0); MEAN CELL VOLUME 88.8 fl (80.0-94.0); MEAN CORPUSCULAR HEMOGLOBIN 29.6 pg (27.0-31.0); MEAN CORPUSCULAR HGB CONC 33.3 g/dL (33.0-37.0); MEAN PLATELET VOLUME 7.1 fl (7.2-11.7); MONO # 0.7 K/uL (0.0-0.8); MONO % 11.2 % (0.0-10.0); NEUT # 4.4 K/uL (1.8-7.0); NEUT % 67.9 % (50.0-75.0); RBC 3.48 Mil/uL (4.40-5.90); RED CELL DISTRIBUTION WIDTH 16.9 % (11.5-14.5); WHITE BLOOD COUNT 6.5 K/uL (4.8-10.8)
--- NOTE | 2018-01-20 10:17 | RAD ---
HISTORY: NGT placement COMPARISON: Comparison made with chest radiograph abdominal radiographs dated 01/16/2018. FINDINGS: BOWEL: Distal aspect NGT overlies left upper quadrant of the abdomen. Nonobstructive/nonspecific bowel gas pattern. BONES: Mild -moderate multilevel degenerative spondylosis of the lumbar and lower thoracic spine. OTHER FINDINGS: None. IMPRESSION: Nonobstructive bowel gas pattern. In situ NGT as above.
[2018-01-20] MEDS: Cholecalciferol 1,000 INTLU TAB PO SCH (10:44)
[2018-01-20] MEDS: Patient's Own Med (Dutasteride [Avodart] 0.5 MG) PO SCH (10:44)
[2018-01-20] MEDS: Pantoprazole 40 mg EC Tab PO SCH (10:45)
[2018-01-20] MEDS: Digoxin 500 mcg/2ml (0.5 mg/2ml) Inj IVP SCH (10:46)
--- NOTE | 2018-01-20 11:34 | EEG ---
DATE: Technical Information: Electrodes were placed according to the 10-20 International electrode system by cath lab technologist. Total of 23 electrodes (21 EEG and 2 EKG) were placed. EEG activity was digitally recorded referentially to P1/P2 or A1/A2 electrodes. Continuous monitoring with EEG was performed using digital analysis for spike detection. The [employer] spike and seizure detection algorithms were used for digital EEG analysis throughout the monitoring period to screen the EEG in real-time and chirag the data file with pointers to electrographic seizures and interictal discharges. EEG was screened for electrographic seizures and interictal discharges by a technologist. Physician, epileptologist reviewed detections as well as extensive random samples and whole EEG study in detail. There is moderate generalized slowing. Digital EEG Analysis: Was carried out including FFT (Fast Fourier Transform), R2D2 (Rhythmicity Run Detection and Display), Relative Asymmetry Spectrogram, and voltage plot by the [employer] Software. The Qualitative EEG analysis and the voltage plot mapping were used for detection of foci of paroxysmal and abnormal electrical cortical activity. General Description: Background Rhythm: There is a well-formed, 8-10 Hz posterior dominant rhythm that is reactive, symmetric, and attenuates with eye opening. There was a normal amount of frontal beta noted bilaterally. There is no sleep recorded. Normal sleep patterns were captured, including bilaterally symmetric 12-14 Hz spindles, vertex waves, and K complexes. Activation Procedures: Photic stimulation: There is no driving noted. Hyperventilation: There is slowing noted that is self-remitted. Abnormal Activity: There are no focal epileptiform discharges noted. No clinical or subclinical seizures noted. IMPRESSION: This is a normal awake and sleep electroencephalogram. is moderate generalized slowing indicates some mild encephalopathy. Clinical correlation is required. Lorraine Sandoval MD
--- NOTE | 2018-01-20 16:45 | CP.PCM.PN ---
Subjective - Date & Time of Evaluation Date of Evaluation: 01/20/18 Time of Evaluation: 11:00 - Subjective Subjective: F/U Respiratory Failure. Objective - Vital Signs/Intake and Output Vital Signs (last 24 hours): Temp Pulse Resp BP Pulse Ox 98 F 73 20 173/78 H 96 01/20/18 15:54 01/20/18 15:54 01/20/18 15:54 01/20/18 15:54 01/20/18 15:54 Intake and Output: 01/20/18 01/20/18 06:59 18:59 Intake Total 1500 Output Total 1400 Balance 100 - Medications Medications: Current Medications Apixaban (Eliquis) 2.5 mg PO BID [facility] PRN Reason: Protocol Last Admin: 01/20/18 10:45 Dose: 2.5 mg Cholecalciferol (Vitamin D) 5,000 intlu PO DAILY [facility] Last Admin: 01/20/18 10:44 Dose: 5,000 intlu Digoxin (Lanoxin) 0.125 mg IVP DAILY [facility] Last Admin: 01/20/18 10:46 Dose: 0.125 mg Diltiazem HCl (Cardizem) 60 mg PO Q6 [facility] Last Admin: 01/20/18 10:44 Dose: 60 mg Furosemide (Lasix) 40 mg IV DAILY [facility] Last Admin: 01/20/18 10:43 Dose: 40 mg Home Med (Dutasteride [Avodart]) 0.5 mg PO DAILY [facility] Last Admin: 01/20/18 10:44 Dose: 0.5 mg Lamotrigine (Lamictal) 100 mg PO Q12 [facility] Last Admin: 01/20/18 10:45 Dose: 100 mg Metoprolol Tartrate (Lopressor) 25 mg PO Q12 [facility] Last Admin: 01/20/18 10:45 Dose: 25 mg Pantoprazole Sodium (Protonix Ec Tab) 40 mg PO DAILY [facility] Last Admin: 01/20/18 10:45 Dose: 40 mg - Labs Labs: 01/20/18 05:45 01/20/18 05:45 PT 15.4 Seconds (9.8-13.1) H 01/05/18 05:30 INR 1.4 (0.9-1.2) H 01/05/18 05:30 APTT 27.6 Seconds (25.6-37.1) 01/05/18 05:30 - Constitutional Appears: Chronically Ill - Head Exam Head Exam: NORMAL INSPECTION - Eye Exam Eye Exam: PERRL - ENT Exam Additional comments: On high flow O2, NGT - Neck Exam Additional comments: Tendency to lean to left side. - Respiratory Exam Respiratory Exam: Decreased Breath Sounds (at bases) - Cardiovascular Exam Cardiovascular Exam: Irregular Rhythm - GI/Abdominal Exam GI & Abdominal Exam: Soft, Tenderness (epigastric), Normal Bowel Sounds - Extremities Exam Extremities Exam: Normal Inspection - Back Exam Additional comments: Back, L-S lesion improved. - Neurological Exam Neurological Exam: Alert Additional comments: Talking, follows commands, generalized weakness. - Skin Skin Exam: Warm Assessment and Plan (1) Acute respiratory failure with hypoxia Status: Chronic (2) Encephalopathy Status: Acute (3) Pleural effusion, bilateral Status: Resolved (4) Diastolic CHF, acute on chronic Status: Chronic (5) Hx of seizure disorder Status: Chronic (6) A-fib Status: Chronic (7) CANDELARIA (acute kidney injury) Status: Resolved (8) Anemia Status: Chronic (9) Aortic valve vegetation Status: Chronic (10) SUSAN (obstructive sleep apnea) Status: Chronic (11) Pulmonary hypertension Status: Chronic (12) Clostridium difficile infection Status: Resolved (13) Hypertension Status: Chronic (14) Urinary tract infection due to Proteus Status: Acute (15) Abdominal pain Status: Resolved
[2018-01-21] MEDS: Pantoprazole 40 mg EC Tab PO SCH (09:24)
[2018-01-21] MEDS: Patient's Own Med (Dutasteride [Avodart] 0.5 MG) PO SCH (09:25)
[2018-01-21] MEDS: Digoxin 500 mcg/2ml (0.5 mg/2ml) Inj IVP SCH (09:40)
[2018-01-21] MEDS: Cholecalciferol 1,000 INTLU TAB PO SCH (09:41)
--- NOTE | 2018-01-21 15:36 | CP.PCM.PN ---
Subjective - Date & Time of Evaluation Date of Evaluation: 01/21/18 Time of Evaluation: 12:40 - Subjective Subjective: F/U Respiratory Failure. Eyes open, sitting in the sofa, able to talk with me and . Objective - Vital Signs/Intake and Output Vital Signs (last 24 hours): Temp Pulse Resp BP Pulse Ox 97.0 F L 58 L 18 120/63 100 01/21/18 12:24 01/21/18 12:24 01/21/18 12:24 01/21/18 12:24 01/21/18 12:24 Intake and Output: 01/21/18 01/21/18 06:59 18:59 Intake Total 900 Output Total 600 Balance 300 - Medications Medications: Current Medications Apixaban (Eliquis) 2.5 mg PO BID [facility] PRN Reason: Protocol Last Admin: 01/21/18 09:24 Dose: 2.5 mg Cholecalciferol (Vitamin D) 5,000 intlu PO DAILY [facility] Last Admin: 01/21/18 09:41 Dose: 5,000 intlu Digoxin (Lanoxin) 0.125 mg IVP DAILY [facility] Last Admin: 01/21/18 09:40 Dose: 0.125 mg Diltiazem HCl (Cardizem) 60 mg PO Q6 [facility] Last Admin: 01/21/18 09:23 Dose: 60 mg Furosemide (Lasix) 40 mg IV DAILY [facility] Last Admin: 01/21/18 09:24 Dose: 40 mg Home Med (Dutasteride [Avodart]) 0.5 mg PO DAILY [facility] Last Admin: 01/21/18 09:25 Dose: 0.5 mg Lamotrigine (Lamictal) 100 mg PO Q12 [facility] Last Admin: 01/21/18 09:24 Dose: 100 mg Metoprolol Tartrate (Lopressor) 25 mg PO Q12 [facility] Last Admin: 01/21/18 09:24 Dose: 25 mg Pantoprazole Sodium (Protonix Ec Tab) 40 mg PO DAILY [facility] Last Admin: 01/21/18 09:24 Dose: 40 mg - Labs Labs: 01/20/18 05:45 01/20/18 05:45 PT 15.4 Seconds (9.8-13.1) H 01/05/18 05:30 INR 1.4 (0.9-1.2) H 01/05/18 05:30 APTT 27.6 Seconds (25.6-37.1) 01/05/18 05:30 - Constitutional Appears: Chronically Ill - Head Exam Head Exam: NORMAL INSPECTION - Eye Exam Eye Exam: PERRL - ENT Exam Additional comments: On high flow O2, NGT - Neck Exam Additional comments: Tendency to lean on left side. - Respiratory Exam Respiratory Exam: Decreased Breath Sounds (at bases) - Cardiovascular Exam Cardiovascular Exam: Irregular Rhythm - GI/Abdominal Exam GI & Abdominal Exam: Soft, Normal Bowel Sounds - Extremities Exam Extremities Exam: Normal Inspection - Back Exam Additional comments: Back, L-S lesion improved. - Neurological Exam Neurological Exam: Alert Additional comments: Talking. follows commands, generalized weakness. - Skin Skin Exam: Warm Assessment and Plan (1) Acute respiratory failure with hypoxia Status: Chronic (2) Encephalopathy Status: Acute (3) Pleural effusion, bilateral Status: Resolved (4) Diastolic CHF, acute on chronic Status: Chronic (5) Hx of seizure disorder Status: Chronic (6) A-fib Status: Chronic (7) CANDELARIA (acute kidney injury) Status: Resolved (8) Anemia Status: Chronic (9) Aortic valve vegetation Status: Chronic (10) SUSAN (obstructive sleep apnea) Status: Chronic (11) Pulmonary hypertension Status: Chronic (12) Clostridium difficile infection Status: Resolved (13) Hypertension Status: Chronic (14) Urinary tract infection due to Proteus Status: Acute (15) Abdominal pain Status: Resolved - Assessment and Plan (Free Text) Plan: Continue current Tx, to have Trial of CPAP to assess pCO2
[2018-01-22] MEDS: Cholecalciferol 1,000 INTLU TAB PO SCH (09:24)
[2018-01-22] MEDS: Pantoprazole 40 mg EC Tab PO SCH (09:24)
[2018-01-22] MEDS: Digoxin 500 mcg/2ml (0.5 mg/2ml) Inj IVP SCH (09:25)
[2018-01-22] MEDS: Patient's Own Med (Dutasteride [Avodart] 0.5 MG) PO SCH (09:25)
--- NOTE | 2018-01-22 14:00 | CP.PCM.PN ---
Subjective - Date & Time of Evaluation Date of Evaluation: 01/22/18 Time of Evaluation: 09:30 - Subjective Subjective: F/U Respiratory Failure. Pt awake, smiling, answer questions. Objective - Vital Signs/Intake and Output Vital Signs (last 24 hours): Temp Pulse Resp BP Pulse Ox 98.1 F 60 18 128/64 100 01/22/18 12:11 01/22/18 12:11 01/22/18 12:11 01/22/18 12:11 01/22/18 12:11 Intake and Output: 01/22/18 01/22/18 06:59 18:59 Intake Total 900 Output Total 380 Balance 520 - Medications Medications: Current Medications Apixaban (Eliquis) 2.5 mg PO BID [facility] PRN Reason: Protocol Last Admin: 01/22/18 09:24 Dose: 2.5 mg Cholecalciferol (Vitamin D) 5,000 intlu PO DAILY [facility] Last Admin: 01/22/18 09:24 Dose: 5,000 intlu Digoxin (Lanoxin) 0.125 mg IVP DAILY [facility] Last Admin: 01/22/18 09:25 Dose: 0.125 mg Diltiazem HCl (Cardizem) 60 mg PO Q6 [facility] Last Admin: 01/22/18 09:24 Dose: 60 mg Furosemide (Lasix) 40 mg IV DAILY [facility] Last Admin: 01/22/18 09:25 Dose: 40 mg Home Med (Dutasteride [Avodart]) 0.5 mg PO DAILY [facility] Last Admin: 01/22/18 09:25 Dose: 0.5 mg Lamotrigine (Lamictal) 100 mg PO Q12 [facility] Last Admin: 01/22/18 09:24 Dose: 100 mg Metoprolol Tartrate (Lopressor) 25 mg PO Q12 [facility] Last Admin: 01/22/18 09:25 Dose: 25 mg Pantoprazole Sodium (Protonix Ec Tab) 40 mg PO DAILY [facility] Last Admin: 01/22/18 09:24 Dose: 40 mg - Labs Labs: 01/20/18 05:45 01/20/18 05:45 PT 15.4 Seconds (9.8-13.1) H 01/05/18 05:30 INR 1.4 (0.9-1.2) H 01/05/18 05:30 APTT 27.6 Seconds (25.6-37.1) 01/05/18 05:30 - Constitutional Appears: Chronically Ill - Head Exam Head Exam: NORMAL INSPECTION - Eye Exam Eye Exam: PERRL - ENT Exam Additional comments: On high flow O2, NGT - Neck Exam Neck Exam: Normal Inspection Additional comments: Tendency to lean in L side. - Respiratory Exam Respiratory Exam: Decreased Breath Sounds - Cardiovascular Exam Cardiovascular Exam: Irregular Rhythm - GI/Abdominal Exam GI & Abdominal Exam: Tenderness (epigastric area), Normal Bowel Sounds - Extremities Exam Extremities Exam: Normal Inspection - Back Exam Additional comments: Bacl, L-S lesion improved. - Neurological Exam Neurological Exam: Alert Additional comments: Talking, follows commands, generalized weakness. - Skin Skin Exam: Warm Assessment and Plan (1) Acute respiratory failure with hypoxia Status: Chronic (2) Encephalopathy Status: Acute (3) Pleural effusion, bilateral Status: Resolved (4) Diastolic CHF, acute on chronic Status: Chronic (5) Hx of seizure disorder Status: Chronic (6) A-fib Status: Chronic (7) CANDELARIA (acute kidney injury) Status: Resolved (8) Anemia Status: Chronic (9) Aortic valve vegetation Status: Chronic (10) SUSAN (obstructive sleep apnea) Status: Chronic (11) Pulmonary hypertension Status: Chronic (12) Clostridium difficile infection Status: Resolved (13) Hypertension Status: Chronic (14) Urinary tract infection due to Proteus Status: Acute (15) Abdominal pain Status: Resolved - Assessment and Plan (Free Text) Plan: Continue current Tx and PT.
[2018-01-22 14:33] VITALS: BMI 18.1
[2018-01-22 18:03] LABS: ABG ALLEN TEST YES; ARTERIAL BLOOD GAS HCO3 35.7 mmol/L (21-28); ARTERIAL BLOOD GAS HEMOGLOBIN 9.6 g/dL (11.7-17.4); ARTERIAL BLOOD GAS O2 CAPACITY 13.1 mL/dL (16-24); ARTERIAL BLOOD GAS O2 CONTENT 12.9 ML/dL (15-23); ARTERIAL BLOOD GAS O2 SAT 98.6 % (95-98); ARTERIAL BLOOD GAS PCO2 51 mm/Hg (35-45); ARTERIAL BLOOD GAS PH 7.49 (7.35-7.45); ARTERIAL BLOOD GAS PO2 85 mm/Hg (80-100); ARTERIAL BLOOD GAS TCO2 40.5 mmol/L (22-28)
[2018-01-23 04:58] LABS: ABG ALLEN TEST YES; ARTERIAL BLOOD GAS HCO3 35.7 mmol/L (21-28); ARTERIAL BLOOD GAS HEMOGLOBIN 10.3 g/dL (11.7-17.4); ARTERIAL BLOOD GAS O2 CAPACITY 14.2 mL/dL (16-24); ARTERIAL BLOOD GAS O2 CONTENT 14.2 ML/dL (15-23); ARTERIAL BLOOD GAS O2 SAT 99.7 % (95-98); ARTERIAL BLOOD GAS PCO2 54 mm/Hg (35-45); ARTERIAL BLOOD GAS PH 7.47 (7.35-7.45); ARTERIAL BLOOD GAS PO2 122 mm/Hg (80-100)
[2018-01-23] MEDS: Patient's Own Med (Dutasteride [Avodart] 0.5 MG) PO SCH (09:36)
[2018-01-23] MEDS: Digoxin 500 mcg/2ml (0.5 mg/2ml) Inj IVP SCH (09:41)
[2018-01-23] MEDS: Cholecalciferol 1,000 INTLU TAB PO SCH (09:51)
[2018-01-23] MEDS: Pantoprazole 40 mg EC Tab PO SCH (09:51)
--- NOTE | 2018-01-23 16:06 | CP.PCM.PN ---
Subjective - Date & Time of Evaluation Date of Evaluation: 01/23/18 Time of Evaluation: 12:30 - Subjective Subjective: F/U Respiratory Failure Pt awake, smiling, answering questions. Objective - Vital Signs/Intake and Output Vital Signs (last 24 hours): Temp Pulse Resp BP Pulse Ox 97.3 F L 71 18 151/70 H 100 01/23/18 16:00 01/23/18 16:00 01/23/18 16:00 01/23/18 16:00 01/23/18 16:00 Intake and Output: 01/23/18 01/23/18 06:59 18:59 Intake Total 900 Output Total 600 Balance 300 - Medications Medications: Current Medications Apixaban (Eliquis) 2.5 mg PO BID [facility] PRN Reason: Protocol Last Admin: 01/23/18 09:37 Dose: 2.5 mg Cholecalciferol (Vitamin D) 5,000 intlu PO DAILY [facility] Last Admin: 01/23/18 09:51 Dose: 5,000 intlu Digoxin (Lanoxin) 0.125 mg IVP DAILY [facility] Last Admin: 01/23/18 09:41 Dose: 0.125 mg Diltiazem HCl (Cardizem) 60 mg PO Q6 [facility] Last Admin: 01/23/18 09:35 Dose: 60 mg Furosemide (Lasix) 40 mg IV DAILY [facility] Last Admin: 01/23/18 09:46 Dose: 40 mg Home Med (Dutasteride [Avodart]) 0.5 mg PO DAILY [facility] Last Admin: 01/23/18 09:36 Dose: 0.5 mg Lamotrigine (Lamictal) 100 mg PO Q12 [facility] Last Admin: 01/23/18 09:37 Dose: 100 mg Metoprolol Tartrate (Lopressor) 25 mg PO Q12 [facility] Last Admin: 01/23/18 09:50 Dose: 25 mg Pantoprazole Sodium (Protonix Ec Tab) 40 mg PO DAILY [facility] Last Admin: 01/23/18 09:51 Dose: 40 mg - Labs Labs: 01/20/18 05:45 01/20/18 05:45 PT 15.4 Seconds (9.8-13.1) H 01/05/18 05:30 INR 1.4 (0.9-1.2) H 01/05/18 05:30 APTT 27.6 Seconds (25.6-37.1) 01/05/18 05:30 - Constitutional Appears: Chronically Ill - Head Exam Head Exam: NORMAL INSPECTION - Eye Exam Eye Exam: PERRL - ENT Exam Additional comments: On high flow O2, NGT - Neck Exam Additional comments: Tendency to lean to left side. - Respiratory Exam Respiratory Exam: Decreased Breath Sounds (at bases) - Cardiovascular Exam Cardiovascular Exam: Irregular Rhythm - GI/Abdominal Exam GI & Abdominal Exam: Soft, Tenderness (epigastric area), Normal Bowel Sounds - Extremities Exam Extremities Exam: Normal Inspection - Back Exam Additional comments: Bacl, L-S lesion improved - Neurological Exam Neurological Exam: Alert Additional comments: Talking, follows commands, generalized weakness. - Skin Skin Exam: Warm Assessment and Plan (1) Acute respiratory failure with hypoxia Status: Chronic (2) Encephalopathy Status: Acute (3) Diastolic CHF, acute on chronic Status: Chronic (4) Hx of seizure disorder Status: Chronic (5) A-fib Status: Chronic (6) CANDELARIA (acute kidney injury) Status: Resolved (7) Anemia Status: Chronic (8) Aortic valve vegetation Status: Chronic (9) SUSAN (obstructive sleep apnea) Status: Deleted (10) Pulmonary hypertension Status: Chronic (11) Clostridium difficile infection Status: Resolved (12) Hypertension Status: Chronic (13) Urinary tract infection due to Proteus Status: Acute (14) Abdominal pain Status: Resolved - Assessment and Plan (Free Text) Plan: Trial of NC 5L/M, CPAP with pCO2 monitor, reapeat ABGs at 10 pm and at 8 AM.
[2018-01-23 22:07] LABS: ABG ALLEN TEST YES; ARTERIAL BLOOD GAS HCO3 35.6 mmol/L (21-28); ARTERIAL BLOOD GAS HEMOGLOBIN 9.9 g/dL (11.7-17.4); ARTERIAL BLOOD GAS O2 CAPACITY 13.8 mL/dL (16-24); ARTERIAL BLOOD GAS O2 CONTENT 13.9 ML/dL (15-23); ARTERIAL BLOOD GAS O2 SAT 100.4 % (95-98); ARTERIAL BLOOD GAS PCO2 48 mm/Hg (35-45); ARTERIAL BLOOD GAS PH 7.51 (7.35-7.45); ARTERIAL BLOOD GAS PO2 158 mm/Hg (80-100); ARTERIAL BLOOD GAS TCO2 39.8 mmol/L (22-28)
[2018-01-24 06:42] LABS: HEMOGLOBIN 9.8 g/dL (12.0-18.0); MEAN CELL VOLUME 88.5 fl (80.0-94.0); MEAN CORPUSCULAR HEMOGLOBIN 29.3 pg (27.0-31.0); MEAN CORPUSCULAR HGB CONC 33.1 g/dL (33.0-37.0); RBC 3.33 Mil/uL (4.40-5.90); RED CELL DISTRIBUTION WIDTH 16.7 % (11.5-14.5); WHITE BLOOD COUNT 6.3 K/uL (4.8-10.8)
[2018-01-24 06:59] LABS: BLOOD UREA NITROGEN 34 mg/dl (9-20); CALCIUM 9.4 mg/dL (8.4-10.2); GFR AFRICAN-AMERICAN > 60; GFR NON-AFRICAN AMERICAN > 60
[2018-01-24 07:15] LABS: ABG ALLEN TEST YES; ARTERIAL BLOOD GAS HCO3 35.1 mmol/L (21-28); ARTERIAL BLOOD GAS HEMOGLOBIN 9.8 g/dL (11.7-17.4); ARTERIAL BLOOD GAS O2 CAPACITY 13.6 mL/dL (16-24); ARTERIAL BLOOD GAS O2 CONTENT 13.6 ML/dL (15-23); ARTERIAL BLOOD GAS O2 SAT 99.8 % (95-98); ARTERIAL BLOOD GAS PCO2 43 mm/Hg (35-45); ARTERIAL BLOOD GAS PH 7.54 (7.35-7.45); ARTERIAL BLOOD GAS PO2 142 mm/Hg (80-100); ARTERIAL BLOOD GAS TCO2 38.1 mmol/L (22-28)
--- NOTE | 2018-01-24 09:29 | CP.PCM.PCO ---
Assessment/Plan - Assessment/Plan Assessment (Free Text): Patient for anticipated discharge after a long complicated stay requiring multiple ICU visits with intubation, bipap and currently hi flow for oxygen supplementation. Patient is a 77yr old male with hx of chronic diastolic heart failure stage III, recurrent pleural effusions requiring several thoracentesis, afib with RVR, and chronic respiratory (hypoxemic) failure with CO2 narcosis requiring on and off bipap. The above conditions have compromised the patient' s ability to maintain enough O2 without supplementation. All therapy exhausted and ineffective, patient will require home oxygen at home with cpap/bipap. - Problems Patient Problems: Problem List (Active/Current) Problem Status Onset Code Acute respiratory failure Acute J96.00 Acute respiratory failure with hypercapnia Acute J96.02 Altered mental status Acute R41.82 Clostridium difficile infection Acute B96.89 Encephalopathy Acute G93.40 Hypernatremia Acute E87.0 Hypothermia Acute T68.XXXA Pneumonia Acute J18.9 Pulmonary hypertension Acute I27.20 S/P bronchoscopy Acute Z98.890 Supratherapeutic international normalized ratio (INR) Acute R79.1 Urinary tract infection due to Proteus Acute N39.0, B96.4 Acute respiratory failure with hypoxia Chronic J96.01 Anemia Chronic D64.9 Aortic valve vegetation Chronic I33.0 Hypertension Chronic I10 SUSAN (obstructive sleep apnea) Chronic G47.33 Pulmonary hypertension Chronic I27.20 Seizure disorder Chronic G40.909 CANDELARIA (acute kidney injury) Resolved N17.9 Abdominal pain Resolved R10.9 Clostridium difficile infection Resolved B96.89
[2018-01-24] MEDS: Patient's Own Med (Dutasteride [Avodart] 0.5 MG) PO SCH (09:43)
[2018-01-24] MEDS: Cholecalciferol 1,000 INTLU TAB PO SCH (09:45)
[2018-01-24] MEDS: Pantoprazole 40 mg EC Tab PO SCH (09:45)
[2018-01-24] MEDS: Digoxin 500 mcg/2ml (0.5 mg/2ml) Inj IVP SCH (09:50)
--- NOTE | 2018-01-24 15:26 | CP.PCM.PN ---
Subjective - Date & Time of Evaluation Date of Evaluation: 01/24/18 Time of Evaluation: 14:30 - Subjective Subjective: F/U Respiratory failure alert , smiling , answer questions Objective - Vital Signs/Intake and Output Vital Signs (last 24 hours): Temp Pulse Resp BP Pulse Ox 98.6 F 65 20 109/57 L 100 01/24/18 12:00 01/24/18 12:00 01/24/18 12:00 01/24/18 12:00 01/24/18 12:00 - Medications Medications: Current Medications Apixaban (Eliquis) 2.5 mg PO BID [facility] PRN Reason: Protocol Last Admin: 01/24/18 09:43 Dose: 2.5 mg Cholecalciferol (Vitamin D) 5,000 intlu PO DAILY [facility] Last Admin: 01/24/18 09:45 Dose: 5,000 intlu Digoxin (Lanoxin) 0.125 mg IVP DAILY [facility] Last Admin: 01/24/18 09:50 Dose: 0.125 mg Diltiazem HCl (Cardizem) 60 mg PO Q6 [facility] Last Admin: 01/24/18 09:42 Dose: 60 mg Furosemide (Lasix) 40 mg IV DAILY [facility] Last Admin: 01/24/18 09:44 Dose: 40 mg Home Med (Dutasteride [Avodart]) 0.5 mg PO DAILY [facility] Last Admin: 01/24/18 09:43 Dose: 0.5 mg Lamotrigine (Lamictal) 100 mg PO Q12 [facility] Last Admin: 01/24/18 09:44 Dose: 100 mg Metoprolol Tartrate (Lopressor) 25 mg PO Q12 [facility] Last Admin: 01/24/18 09:44 Dose: 25 mg Pantoprazole Sodium (Protonix Ec Tab) 40 mg PO DAILY [facility] Last Admin: 01/24/18 09:45 Dose: 40 mg - Labs Labs: 01/24/18 05:00 01/24/18 05:00 PT 15.4 Seconds (9.8-13.1) H 01/05/18 05:30 INR 1.4 (0.9-1.2) H 01/05/18 05:30 APTT 27.6 Seconds (25.6-37.1) 01/05/18 05:30 - Constitutional Appears: Chronically Ill - Head Exam Head Exam: NORMAL INSPECTION - Eye Exam Eye Exam: PERRL - ENT Exam Additional comments: On high flow O2 - Neck Exam Additional comments: Tendency to lean on left side - Respiratory Exam Respiratory Exam: Decreased Breath Sounds (at bases) - Cardiovascular Exam Cardiovascular Exam: Irregular Rhythm - GI/Abdominal Exam GI & Abdominal Exam: Soft, Normal Bowel Sounds - Extremities Exam Extremities Exam: Normal Inspection - Neurological Exam Neurological Exam: Awake Additional comments: Talking , follows commands, generalized weakness. - Skin Skin Exam: Warm Assessment and Plan (1) Chronic respiratory failure with hypoxia Status: Chronic (2) Diastolic CHF, acute on chronic Status: Chronic (3) SUSAN on CPAP Status: Chronic (4) Pulmonary hypertension Status: Chronic (5) Afib Status: Chronic (6) Hypertension Status: Chronic (7) Anemia Status: Chronic (8) Seizure Status: Chronic - Assessment and Plan (Free Text) Plan: continue Cardizem , Lopressor , Lasix , Digoxin , Lamictal , Social Service working to provide Oxigen , BIPAP at home
[2018-01-25 01:57] LABS: URINE BILIRUBIN NEGATIVE (NEGATIVE); URINE BLOOD MODERATE (NEGATIVE); URINE CLARITY TURBID (Clear); URINE COLOR RED (YELLOW); URINE GLUCOSE (UA) NEG (Normal); URINE LEUKOCYTE ESTERASE MOD Leu/uL (Negative); URINE PROTEIN 100 mg/dL (NEGATIVE); URINE UROBILINOGEN 0.2-1.0 mg/dL (0.2-1.0)
[2018-01-25] MEDS: Patient's Own Med (Dutasteride [Avodart] 0.5 MG) PO SCH (08:58)
[2018-01-25] MEDS: Pantoprazole 40 mg EC Tab PO SCH (09:03)
[2018-01-25] MEDS: Cholecalciferol 1,000 INTLU TAB PO SCH (09:03)
[2018-01-25] MEDS: Digoxin 500 mcg/2ml (0.5 mg/2ml) Inj IVP SCH (09:22)
--- NOTE | 2018-01-25 17:25 | CP.PCM.PN ---
Subjective - Date & Time of Evaluation Date of Evaluation: 01/25/18 Time of Evaluation: 16:00 - Subjective Subjective: F/U Respirtaory failure. Alert , answering questions , developed urinary retention yesterday, had Wang inserted , with hematuria post Wang cath insertion Objective - Vital Signs/Intake and Output Vital Signs (last 24 hours): Temp Pulse Resp BP Pulse Ox 99 F 113 H 20 166/89 H 94 L 01/25/18 16:33 01/25/18 16:33 01/25/18 16:33 01/25/18 16:33 01/25/18 16:33 - Medications Medications: Current Medications Apixaban (Eliquis) 2.5 mg PO BID [facility] PRN Reason: Protocol Last Admin: 01/25/18 16:10 Dose: 2.5 mg Cholecalciferol (Vitamin D) 5,000 intlu PO DAILY [facility] Last Admin: 01/25/18 09:03 Dose: 5,000 intlu Digoxin (Lanoxin) 0.125 mg IVP DAILY [facility] Last Admin: 01/25/18 09:22 Dose: 0.125 mg Diltiazem HCl (Cardizem) 60 mg PO Q6 [facility] Last Admin: 01/25/18 16:08 Dose: 60 mg Furosemide (Lasix) 40 mg IV DAILY [facility] Last Admin: 01/25/18 08:59 Dose: 40 mg Home Med (Dutasteride [Avodart]) 0.5 mg PO DAILY [facility] Last Admin: 01/25/18 08:58 Dose: 0.5 mg Lamotrigine (Lamictal) 100 mg PO Q12 [facility] Last Admin: 01/25/18 08:59 Dose: 100 mg Metoprolol Tartrate (Lopressor) 25 mg PO Q12 [facility] Last Admin: 01/25/18 09:02 Dose: 25 mg Pantoprazole Sodium (Protonix Ec Tab) 40 mg PO DAILY [facility] Last Admin: 01/25/18 09:03 Dose: 40 mg - Labs Labs: 01/24/18 05:00 01/24/18 05:00 PT 15.4 Seconds (9.8-13.1) H 01/05/18 05:30 INR 1.4 (0.9-1.2) H 01/05/18 05:30 APTT 27.6 Seconds (25.6-37.1) 01/05/18 05:30 - Constitutional Appears: Chronically Ill - Head Exam Head Exam: NORMAL INSPECTION - Eye Exam Eye Exam: PERRL - ENT Exam ENT Exam: Normal Exam Additional comments: high flow O2 - Neck Exam Neck Exam: Normal Inspection - Respiratory Exam Respiratory Exam: Decreased Breath Sounds (at bases) - Cardiovascular Exam Cardiovascular Exam: Irregular Rhythm - GI/Abdominal Exam GI & Abdominal Exam: Soft, Normal Bowel Sounds - Extremities Exam Extremities Exam: Normal Inspection - Back Exam Additional comments: L-S lesion improved - Neurological Exam Neurological Exam: Alert (no focal motor/sensory deficit , generalized weakness) - Psychiatric Exam Psychiatric exam: Normal Affect - Skin Skin Exam: Warm Assessment and Plan (1) Acute respiratory failure with hypoxia Status: Acute (2) Diastolic CHF, acute on chronic Status: Acute (3) SUSAN treated with BiPAP Status: Acute (4) Hypertension Status: Acute (5) Urinary retention Status: Acute - Assessment and Plan (Free Text) Plan: continue high flow O2 , C Pap, Eliquis , Lamictal , Lanoxin , Lasix , Lopressor , f/u Urology consult
[2018-01-26] MEDS: Cefepime 1 GM in Sodium Chloride 0.9% 100 ML IVPB SCH ×3 (00:49→21:05)
[2018-01-26 01:47] LABS: HEMOGLOBIN 9.5 g/dL (12.0-18.0); MEAN CELL VOLUME 87.7 fl (80.0-94.0); MEAN CORPUSCULAR HEMOGLOBIN 29.1 pg (27.0-31.0); MEAN CORPUSCULAR HGB CONC 33.2 g/dL (33.0-37.0); RBC 3.27 Mil/uL (4.40-5.90); RED CELL DISTRIBUTION WIDTH 17.4 % (11.5-14.5); WHITE BLOOD COUNT 12.1 K/uL (4.8-10.8)
[2018-01-26 08:30] LABS: HEMOGLOBIN 9.3 g/dL (12.0-18.0); MEAN CELL VOLUME 88.9 fl (80.0-94.0); MEAN CORPUSCULAR HEMOGLOBIN 28.7 pg (27.0-31.0); MEAN CORPUSCULAR HGB CONC 32.3 g/dL (33.0-37.0); RBC 3.25 Mil/uL (4.40-5.90); RED CELL DISTRIBUTION WIDTH 16.9 % (11.5-14.5); WHITE BLOOD COUNT 11.1 K/uL (4.8-10.8)
[2018-01-26 08:53] LABS: ALB/GLOB RATIO 0.8 (1.0-2.1); ALBUMIN 3.4 g/dL (3.5-5.0); ALT/SGPT 17 U/L (21-72); AST/SGOT 18 U/L (17-59); BLOOD UREA NITROGEN 36 mg/dl (9-20); CALCIUM 9.2 mg/dL (8.4-10.2); GFR AFRICAN-AMERICAN > 60; GFR NON-AFRICAN AMERICAN 58
[2018-01-26] MEDS: Patient's Own Med (Dutasteride [Avodart] 0.5 MG) PO SCH (09:11)
[2018-01-26] MEDS: Pantoprazole 40 mg EC Tab PO SCH (09:14)
[2018-01-26] MEDS: Cholecalciferol 1,000 INTLU TAB PO SCH (09:15)
[2018-01-26] MEDS: Digoxin 500 mcg/2ml (0.5 mg/2ml) Inj IVP SCH (09:23)
--- NOTE | 2018-01-26 15:45 | CP.PCM.PN ---
Subjective - Date & Time of Evaluation Date of Evaluation: 01/26/18 Time of Evaluation: 13:40 - Subjective Subjective: F/U Respiratory Failure Awake , able to talk , lethargic earlier according to Patient's at bedside, T101 earlier Objective - Vital Signs/Intake and Output Vital Signs (last 24 hours): Temp Pulse Resp BP Pulse Ox 98.7 F 84 20 103/67 98 01/26/18 12:22 01/26/18 12:22 01/26/18 12:22 01/26/18 12:22 01/26/18 12:22 - Medications Medications: Current Medications Acetaminophen (Tylenol 325mg Tab) 650 mg PO Q4 PRN PRN Reason: Fever >100.4 F Last Admin: 01/26/18 00:48 Dose: 650 mg Apixaban (Eliquis) 2.5 mg PO BID [facility] PRN Reason: Protocol Last Admin: 01/26/18 09:12 Dose: 2.5 mg Cholecalciferol (Vitamin D) 5,000 intlu PO DAILY [facility] Last Admin: 01/26/18 09:15 Dose: 5,000 intlu Digoxin (Lanoxin) 0.125 mg IVP DAILY [facility] Last Admin: 01/26/18 09:23 Dose: 0.125 mg Diltiazem HCl (Cardizem) 60 mg PO Q6 [facility] Last Admin: 01/26/18 09:12 Dose: 60 mg Furosemide (Lasix) 40 mg IV DAILY [facility] Last Admin: 01/26/18 09:13 Dose: 40 mg Home Med (Dutasteride [Avodart]) 0.5 mg PO DAILY [facility] Last Admin: 01/26/18 09:11 Dose: 0.5 mg Cefepime HCl 1 gm/ Sodium (Chloride) 100 mls @ 100 mls/hr IVPB Q12 [facility] PRN Reason: Protocol Last Admin: 01/26/18 10:00 Dose: 100 mls/hr Lamotrigine (Lamictal) 100 mg PO Q12 [facility] Last Admin: 01/26/18 09:12 Dose: 100 mg Metoprolol Tartrate (Lopressor) 25 mg PO Q12 [facility] Last Admin: 01/26/18 09:14 Dose: 25 mg Pantoprazole Sodium (Protonix Ec Tab) 40 mg PO DAILY [facility] Last Admin: 01/26/18 09:14 Dose: 40 mg - Labs Labs: 01/26/18 07:08 01/26/18 07:08 PT 15.4 Seconds (9.8-13.1) H 01/05/18 05:30 INR 1.4 (0.9-1.2) H 01/05/18 05:30 APTT 27.6 Seconds (25.6-37.1) 01/05/18 05:30 - Constitutional Appears: Chronically Ill - Head Exam Head Exam: NORMAL INSPECTION - Eye Exam Eye Exam: PERRL - ENT Exam ENT Exam: Normal Exam Additional comments: High Flow O2 - Neck Exam Neck Exam: Normal Inspection - Respiratory Exam Respiratory Exam: Decreased Breath Sounds (at bases) - Cardiovascular Exam Cardiovascular Exam: Irregular Rhythm - GI/Abdominal Exam GI & Abdominal Exam: Soft, Normal Bowel Sounds - Exam Additional comments: Wang Cath - Extremities Exam Extremities Exam: Normal Inspection - Back Exam Additional comments: Back , L-S lesion - Neurological Exam Neurological Exam: Awake Additional comments: answer questions , generalized weakness - Psychiatric Exam Psychiatric exam: Anxious Assessment and Plan (1) Acute respiratory failure with hypoxia Status: Chronic (2) Encephalopathy Status: Acute (3) Diastolic CHF, acute on chronic Status: Chronic (4) Hx of seizure disorder Status: Chronic (5) A-fib Status: Chronic (6) CANDELARIA (acute kidney injury) Status: Resolved (7) Anemia Status: Chronic (8) Aortic valve vegetation Status: Chronic (9) SUSAN (obstructive sleep apnea) Status: Deleted (10) Pulmonary hypertension Status: Chronic (11) Clostridium difficile infection Status: Resolved (12) Hypertension Status: Chronic (13) Urinary tract infection due to Proteus Status: Acute (14) Abdominal pain Status: Resolved - Assessment and Plan (Free Text) Plan: Fever T 101 , f/u U C-S , begin Cefepime , f/u Urology consult , Patient with Wang Cath for urinary retention, Patient lethargic earlier, f/u ABG , continue rest of treatment
[2018-01-26 15:58] LABS: ABG ALLEN TEST YES; ARTERIAL BLOOD GAS HCO3 34.2 mmol/L (21-28); ARTERIAL BLOOD GAS HEMOGLOBIN 9.8 g/dL (11.7-17.4); ARTERIAL BLOOD GAS O2 CAPACITY 13.6 mL/dL (16-24); ARTERIAL BLOOD GAS O2 CONTENT 13.5 ML/dL (15-23); ARTERIAL BLOOD GAS O2 SAT 99.6 % (95-98); ARTERIAL BLOOD GAS PCO2 51 mm/Hg (35-45); ARTERIAL BLOOD GAS PH 7.47 (7.35-7.45); ARTERIAL BLOOD GAS PO2 126 mm/Hg (80-100); ARTERIAL BLOOD GAS TCO2 38.7 mmol/L (22-28)
[2018-01-27 08:25] LABS: HEMOGLOBIN 9.7 g/dL (12.0-18.0); MEAN CELL VOLUME 88.1 fl (80.0-94.0); MEAN CORPUSCULAR HEMOGLOBIN 29.2 pg (27.0-31.0); MEAN CORPUSCULAR HGB CONC 33.1 g/dL (33.0-37.0); RBC 3.32 Mil/uL (4.40-5.90); RED CELL DISTRIBUTION WIDTH 16.9 % (11.5-14.5); WHITE BLOOD COUNT 6.9 K/uL (4.8-10.8)
[2018-01-27 09:05] LABS: ALB/GLOB RATIO 0.8 (1.0-2.1); ALBUMIN 3.3 g/dL (3.5-5.0); ALT/SGPT 30 U/L (21-72); AST/SGOT 24 U/L (17-59); BLOOD UREA NITROGEN 41 mg/dl (9-20); CALCIUM 9.2 mg/dL (8.4-10.2); GFR AFRICAN-AMERICAN > 60; GFR NON-AFRICAN AMERICAN > 60
[2018-01-27] MEDS: Digoxin 500 mcg/2ml (0.5 mg/2ml) Inj IVP SCH (09:30)
[2018-01-27] MEDS: Patient's Own Med (Dutasteride [Avodart] 0.5 MG) PO SCH (10:12)
[2018-01-27] MEDS: Cholecalciferol 1,000 INTLU TAB PO SCH (10:14)
[2018-01-27] MEDS: Pantoprazole 40 mg EC Tab PO SCH (10:14)
[2018-01-27] MEDS: Cefepime 1 GM in Sodium Chloride 0.9% 100 ML IVPB SCH ×2 (10:15→21:15)
[2018-01-27] MEDS ORDERED: Chlorhexidine Gluconate 1 APPL/PKT TP ONE (12:45)
--- NOTE | 2018-01-27 16:00 | CP.PCM.PN ---
Subjective - Date & Time of Evaluation Date of Evaluation: 01/27/18 Time of Evaluation: 11:00 - Subjective Subjective: F/U respiratory failure. Awake, answer simple questions, at bedside. Objective - Vital Signs/Intake and Output Vital Signs (last 24 hours): Temp Pulse Resp BP Pulse Ox 98.1 F 76 20 159/67 H 96 01/27/18 15:43 01/27/18 15:43 01/27/18 15:43 01/27/18 15:43 01/27/18 15:43 Intake and Output: 01/27/18 01/27/18 06:59 18:59 Intake Total 420 Output Total 350 Balance 70 - Medications Medications: Current Medications Acetaminophen (Tylenol 325mg Tab) 650 mg PO Q4 PRN PRN Reason: Fever >100.4 F Last Admin: 01/26/18 00:48 Dose: 650 mg Apixaban (Eliquis) 2.5 mg PO BID [facility] PRN Reason: Protocol Last Admin: 01/27/18 10:14 Dose: 2.5 mg Cholecalciferol (Vitamin D) 5,000 intlu PO DAILY [facility] Last Admin: 01/27/18 10:14 Dose: 5,000 intlu Digoxin (Lanoxin) 0.125 mg IVP DAILY [facility] Last Admin: 01/26/18 09:23 Dose: 0.125 mg Diltiazem HCl (Cardizem) 60 mg PO Q6 [facility] Last Admin: 01/27/18 10:12 Dose: 60 mg Furosemide (Lasix) 40 mg IV DAILY [facility] Last Admin: 01/27/18 10:13 Dose: 40 mg Home Med (Dutasteride [Avodart]) 0.5 mg PO DAILY [facility] Last Admin: 01/27/18 10:12 Dose: 0.5 mg Cefepime HCl 1 gm/ Sodium (Chloride) 100 mls @ 100 mls/hr IVPB Q12 [facility] PRN Reason: Protocol Last Admin: 01/27/18 10:15 Dose: 100 mls/hr Lamotrigine (Lamictal) 100 mg PO Q12 [facility] Last Admin: 01/27/18 10:14 Dose: 100 mg Metoprolol Tartrate (Lopressor) 25 mg PO Q12 [facility] Last Admin: 01/27/18 10:12 Dose: 25 mg Pantoprazole Sodium (Protonix Ec Tab) 40 mg PO DAILY [facility] Last Admin: 01/27/18 10:14 Dose: 40 mg - Labs Labs: 01/27/18 08:07 01/27/18 08:07 PT 15.4 Seconds (9.8-13.1) H 01/05/18 05:30 INR 1.4 (0.9-1.2) H 01/05/18 05:30 APTT 27.6 Seconds (25.6-37.1) 01/05/18 05:30 - Constitutional Appears: Chronically Ill - Head Exam Head Exam: NORMAL INSPECTION - Eye Exam Eye Exam: PERRL - ENT Exam Additional comments: On high flow O2. - Neck Exam Neck Exam: Normal Inspection - Respiratory Exam Respiratory Exam: Decreased Breath Sounds (at bases) - Cardiovascular Exam Cardiovascular Exam: Irregular Rhythm - GI/Abdominal Exam GI & Abdominal Exam: Soft, Normal Bowel Sounds - Exam Additional comments: Wang Cath. - Extremities Exam Extremities Exam: Normal Inspection - Back Exam Additional comments: Back, L-S lesion - Neurological Exam Neurological Exam: Awake Additional comments: Answer questions, generalized weakness. - Psychiatric Exam Psychiatric exam: Anxious - Skin Skin Exam: Warm Assessment and Plan (1) Acute respiratory failure with hypoxia Status: Chronic (2) Encephalopathy Status: Acute (3) Diastolic CHF, acute on chronic Status: Chronic (4) Hx of seizure disorder Status: Chronic (5) A-fib Status: Chronic (6) CANDELARIA (acute kidney injury) Status: Resolved (7) Anemia Status: Chronic (8) Aortic valve vegetation Status: Chronic (9) SUSAN (obstructive sleep apnea) Status: Deleted (10) Pulmonary hypertension Status: Chronic (11) Clostridium difficile infection Status: Resolved (12) Hypertension Status: Chronic (13) Urinary tract infection due to Proteus Status: Acute (14) Abdominal pain Status: Resolved - Assessment and Plan (Free Text) Plan: Urine C-S report on 01/27/18 shows Pseudomonas Aeruginosa, Pt Tx with Rocephin 1 mg IV. F/U Urology consult for urinary retention, Pt with Wang Cath.
[2018-01-28] MEDS: Patient's Own Med (Dutasteride [Avodart] 0.5 MG) PO SCH (09:21)
[2018-01-28] MEDS: Digoxin 500 mcg/2ml (0.5 mg/2ml) Inj IVP SCH (09:22)
[2018-01-28] MEDS: Pantoprazole 40 mg EC Tab PO SCH (09:24)
[2018-01-28] MEDS: Cefepime 1 GM in Sodium Chloride 0.9% 100 ML IVPB SCH ×2 (09:25→21:30)
[2018-01-28] MEDS: Cholecalciferol 1,000 INTLU TAB PO SCH (09:25)
--- NOTE | 2018-01-28 15:19 | CP.PCM.PN ---
Subjective - Date & Time of Evaluation Date of Evaluation: 01/28/18 Time of Evaluation: 11:00 - Subjective Subjective: F/U Respiratory failure. Awake , answer questions , follows commands Objective - Vital Signs/Intake and Output Vital Signs (last 24 hours): Temp Pulse Resp BP Pulse Ox 97.4 F L 60 18 149/65 99 01/28/18 13:00 01/28/18 13:00 01/28/18 13:00 01/28/18 13:00 01/28/18 13:00 Intake and Output: 01/28/18 01/28/18 06:59 18:59 Intake Total 250 Output Total 400 Balance -150 - Medications Medications: Current Medications Acetaminophen (Tylenol 325mg Tab) 650 mg PO Q4 PRN PRN Reason: Fever >100.4 F Last Admin: 01/26/18 00:48 Dose: 650 mg Apixaban (Eliquis) 2.5 mg PO BID [facility] PRN Reason: Protocol Last Admin: 01/28/18 09:21 Dose: 2.5 mg Cholecalciferol (Vitamin D) 5,000 intlu PO DAILY [facility] Last Admin: 01/28/18 09:25 Dose: 5,000 intlu Digoxin (Lanoxin) 0.125 mg IVP DAILY [facility] Last Admin: 01/28/18 09:22 Dose: 0.125 mg Diltiazem HCl (Cardizem) 60 mg PO Q6 [facility] Last Admin: 01/28/18 09:21 Dose: 60 mg Furosemide (Lasix) 40 mg IV DAILY [facility] Last Admin: 01/28/18 09:23 Dose: 40 mg Home Med (Dutasteride [Avodart]) 0.5 mg PO DAILY [facility] Last Admin: 01/28/18 09:21 Dose: 0.5 mg Cefepime HCl 1 gm/ Sodium (Chloride) 100 mls @ 100 mls/hr IVPB Q12 [facility] PRN Reason: Protocol Last Admin: 01/28/18 09:25 Dose: 100 mls/hr Lamotrigine (Lamictal) 100 mg PO Q12 [facility] Last Admin: 01/28/18 09:21 Dose: 100 mg Metoprolol Tartrate (Lopressor) 25 mg PO Q12 [facility] Last Admin: 01/28/18 09:24 Dose: 25 mg Pantoprazole Sodium (Protonix Ec Tab) 40 mg PO DAILY [facility] Last Admin: 01/28/18 09:24 Dose: 40 mg - Labs Labs: 01/27/18 08:07 01/27/18 08:07 PT 15.4 Seconds (9.8-13.1) H 01/05/18 05:30 INR 1.4 (0.9-1.2) H 01/05/18 05:30 APTT 27.6 Seconds (25.6-37.1) 01/05/18 05:30 - Constitutional Appears: Chronically Ill - Head Exam Head Exam: NORMAL INSPECTION - Eye Exam Eye Exam: PERRL - ENT Exam ENT Exam: Normal Exam - Neck Exam Additional comments: tendency to lean to left side - Respiratory Exam Respiratory Exam: Decreased Breath Sounds (at bases) - Cardiovascular Exam Cardiovascular Exam: Irregular Rhythm - GI/Abdominal Exam GI & Abdominal Exam: Soft, Normal Bowel Sounds - Exam Additional comments: Wang Cath - Back Exam Additional comments: Back and l-S lesions improved - Neurological Exam Neurological Exam: Awake (no focal motor/sensory deficit , generalized weakness) - Psychiatric Exam Psychiatric exam: Anxious - Skin Skin Exam: Warm Assessment and Plan (1) Acute respiratory failure with hypoxia Status: Chronic (2) Encephalopathy Status: Acute (3) Diastolic CHF, acute on chronic Status: Chronic (4) Hx of seizure disorder Status: Chronic (5) A-fib Status: Chronic (6) CANDELARIA (acute kidney injury) Status: Resolved (7) Anemia Status: Chronic (8) Aortic valve vegetation Status: Chronic (9) SUSAN (obstructive sleep apnea) Status: Deleted (10) Pulmonary hypertension Status: Chronic (11) Clostridium difficile infection Status: Resolved (12) Hypertension Status: Chronic (13) Urinary tract infection due to Proteus Status: Acute (14) Abdominal pain Status: Resolved - Assessment and Plan (Free Text) Plan: continue Cefepime , Cardizem , Eliquis , Lopressor , Digoxin , PT and rest of treatment
[2018-01-29] MEDS: Patient's Own Med (Dutasteride [Avodart] 0.5 MG) PO SCH (09:27)
[2018-01-29] MEDS: Cholecalciferol 1,000 INTLU TAB PO SCH (09:27)
[2018-01-29] MEDS: Cefepime 1 GM in Sodium Chloride 0.9% 100 ML IVPB SCH (09:30)
[2018-01-29] MEDS: Pantoprazole 40 mg EC Tab PO SCH (09:30)
[2018-01-29] MEDS: Digoxin 500 mcg/2ml (0.5 mg/2ml) Inj IVP SCH (09:32)
--- NOTE | 2018-01-29 11:24 | CP.PCM.PCO ---
Assessment/Plan - Assessment/Plan Assessment (Free Text): Patient seen and examined Vital signs stable. Oxygen on room air - Problems Patient Problems: Problem List (Active/Current) Problem Status Onset Code Acute respiratory failure Acute J96.00 Acute respiratory failure with hypercapnia Acute J96.02 Acute respiratory failure with hypoxia Acute J96.01 Altered mental status Acute R41.82 Clostridium difficile infection Acute B96.89 Diastolic CHF, acute on chronic Acute I50.33 Encephalopathy Acute G93.40 Hypernatremia Acute E87.0 Hypertension Acute I10 Hypothermia Acute T68.XXXA SUSAN treated with BiPAP Acute G47.33 Pneumonia Acute J18.9 Pulmonary hypertension Acute I27.20 S/P bronchoscopy Acute Z98.890 Supratherapeutic international normalized ratio (INR) Acute R79.1 Urinary retention Acute R33.9 Urinary tract infection due to Proteus Acute N39.0, B96.4 Acute respiratory failure with hypoxia Chronic J96.01 Afib Chronic I48.91 Anemia Chronic D64.9 Anemia Chronic D64.9 Aortic valve vegetation Chronic I33.0 Chronic respiratory failure with hypoxia Chronic J96.11 Diastolic CHF, acute on chronic Chronic I50.33 Hypertension Chronic I10 Hypertension Chronic I10 SUSAN on CPAP Chronic G47.33, Z99.89 Pulmonary hypertension Chronic I27.20 Pulmonary hypertension Chronic I27.20 Seizure Chronic R56.9 Seizure disorder Chronic G40.909 CANDELARIA (acute kidney injury) Resolved N17.9 Abdominal pain Resolved R10.9 Clostridium difficile infection Resolved B96.89
--- NOTE | 2018-01-29 15:54 | CP.PCM.PN ---
Subjective - Date & Time of Evaluation Date of Evaluation: 01/29/18 Time of Evaluation: 13:30 - Subjective Subjective: F/U respiratory failure. Awake , follows commands, no AD Objective - Vital Signs/Intake and Output Vital Signs (last 24 hours): Temp Pulse Resp BP Pulse Ox 97.6 F 63 18 136/58 L 100 01/29/18 15:34 01/29/18 15:34 01/29/18 15:34 01/29/18 15:34 01/29/18 15:34 Intake and Output: 01/29/18 01/29/18 06:59 18:59 Intake Total 350 Output Total 300 Balance 50 - Medications Medications: Current Medications Acetaminophen (Tylenol 325mg Tab) 650 mg PO Q4 PRN PRN Reason: Fever >100.4 F Last Admin: 01/26/18 00:48 Dose: 650 mg Apixaban (Eliquis) 2.5 mg PO BID [facility] PRN Reason: Protocol Last Admin: 01/29/18 09:29 Dose: 2.5 mg Cholecalciferol (Vitamin D) 5,000 intlu PO DAILY [facility] Last Admin: 01/29/18 09:27 Dose: 5,000 intlu Digoxin (Lanoxin) 0.125 mg IVP DAILY [facility] Last Admin: 01/29/18 09:32 Dose: 0.125 mg Diltiazem HCl (Cardizem) 60 mg PO Q6 [facility] Last Admin: 01/29/18 09:48 Dose: 60 mg Furosemide (Lasix) 40 mg IV DAILY [facility] Last Admin: 01/29/18 09:28 Dose: 40 mg Home Med (Dutasteride [Avodart]) 0.5 mg PO DAILY [facility] Last Admin: 01/29/18 09:27 Dose: 0.5 mg Cefepime HCl 1 gm/ Sodium (Chloride) 50 mls @ 50 mls/hr IVPB Q12 [facility] PRN Reason: Protocol Lamotrigine (Lamictal) 100 mg PO Q12 [facility] Last Admin: 01/29/18 09:27 Dose: 100 mg Metoprolol Tartrate (Lopressor) 25 mg PO Q12 [facility] Last Admin: 01/29/18 09:27 Dose: 25 mg Pantoprazole Sodium (Protonix Ec Tab) 40 mg PO DAILY [facility] Last Admin: 01/28/18 09:24 Dose: 40 mg - Labs Labs: 01/27/18 08:07 01/27/18 08:07 PT 15.4 Seconds (9.8-13.1) H 01/05/18 05:30 INR 1.4 (0.9-1.2) H 01/05/18 05:30 APTT 27.6 Seconds (25.6-37.1) 01/05/18 05:30 - Constitutional Appears: Chronically Ill - Head Exam Head Exam: NORMAL INSPECTION - Eye Exam Eye Exam: PERRL - ENT Exam ENT Exam: Normal Exam - Neck Exam Neck Exam: Normal Inspection - Respiratory Exam Respiratory Exam: Decreased Breath Sounds (at bases) - Cardiovascular Exam Cardiovascular Exam: Irregular Rhythm - GI/Abdominal Exam GI & Abdominal Exam: Soft, Normal Bowel Sounds - Extremities Exam Extremities Exam: Normal Inspection - Back Exam Additional comments: Back and L-S lesions healing well - Neurological Exam Neurological Exam: Alert Additional comments: no focal/motor sensory deficit , generalized weakness - Psychiatric Exam Psychiatric exam: Anxious - Skin Skin Exam: Warm Assessment and Plan (1) Acute respiratory failure with hypoxia Status: Chronic (2) Encephalopathy Status: Acute (3) Diastolic CHF, acute on chronic Status: Chronic (4) Hx of seizure disorder Status: Chronic (5) A-fib Assessment & Plan: continue Cipro, Eliquis , Lasix , Digoxin , Cardizem , Lopressor, f/u Urology in reference to Wang Cath Status: Chronic (6) CANDELARIA (acute kidney injury) Status: Resolved (7) Anemia Status: Chronic (8) Aortic valve vegetation Status: Chronic (9) SUSAN (obstructive sleep apnea) Status: Deleted (10) Pulmonary hypertension Status: Chronic (11) Clostridium difficile infection Status: Resolved (12) Hypertension Status: Chronic (13) Urinary tract infection due to Proteus Status: Acute (14) Abdominal pain Status: Resolved
--- NOTE | 2018-01-29 16:15 | CP.PCM.PN ---
Subjective - Date & Time of Evaluation Date of Evaluation: 01/29/18 Time of Evaluation: 16:09 - Subjective Subjective: UROLOGY I spoke with pt's concerning the ko cathater. He has failed multiple attempts at voiding without a cathater. She at first prefers intermittant cath however I explained that for now it would much less painful for the patient to have an indwelling ko. She understands the thought process and will accept a ko cathater bat time of discharge Objective - Vital Signs/Intake and Output Vital Signs (last 24 hours): Temp Pulse Resp BP Pulse Ox 97.6 F 63 18 136/58 L 100 01/29/18 15:34 01/29/18 15:34 01/29/18 15:34 01/29/18 15:34 01/29/18 15:34 Intake and Output: 01/29/18 01/29/18 06:59 18:59 Intake Total 350 Output Total 300 Balance 50 - Medications Medications: Current Medications Acetaminophen (Tylenol 325mg Tab) 650 mg PO Q4 PRN PRN Reason: Fever >100.4 F Last Admin: 01/26/18 00:48 Dose: 650 mg Apixaban (Eliquis) 2.5 mg PO BID [facility] PRN Reason: Protocol Last Admin: 01/29/18 09:29 Dose: 2.5 mg Cholecalciferol (Vitamin D) 5,000 intlu PO DAILY [facility] Last Admin: 01/29/18 09:27 Dose: 5,000 intlu Digoxin (Lanoxin) 0.125 mg IVP DAILY [facility] Last Admin: 01/29/18 09:32 Dose: 0.125 mg Diltiazem HCl (Cardizem) 60 mg PO Q6 [facility] Last Admin: 01/29/18 09:48 Dose: 60 mg Furosemide (Lasix) 40 mg IV DAILY [facility] Last Admin: 01/29/18 09:28 Dose: 40 mg Home Med (Dutasteride [Avodart]) 0.5 mg PO DAILY [facility] Last Admin: 01/29/18 09:27 Dose: 0.5 mg Cefepime HCl 1 gm/ Sodium (Chloride) 50 mls @ 50 mls/hr IVPB Q12 [facility] PRN Reason: Protocol Lamotrigine (Lamictal) 100 mg PO Q12 [facility] Last Admin: 01/29/18 09:27 Dose: 100 mg Metoprolol Tartrate (Lopressor) 25 mg PO Q12 [facility] Last Admin: 01/29/18 09:27 Dose: 25 mg Pantoprazole Sodium (Protonix Ec Tab) 40 mg PO DAILY [facility] Last Admin: 01/28/18 09:24 Dose: 40 mg - Labs Labs: 01/27/18 08:07 01/27/18 08:07 PT 15.4 Seconds (9.8-13.1) H 01/05/18 05:30 INR 1.4 (0.9-1.2) H 01/05/18 05:30 APTT 27.6 Seconds (25.6-37.1) 01/05/18 05:30
--- NOTE | 2018-01-29 17:27 | RAD ---
PROCEDURE: Right Hand Radiographs. HISTORY: pain COMPARISON: None available FINDINGS: BONES: Technically limited examination. No AP view submitted. No acute fracture. JOINTS: Normal. No osteoarthritic changes. SOFT TISSUES: Normal. OTHER FINDINGS: None. IMPRESSION: Normal limited examination.
[2018-01-29] MEDS: Cefepime 1 GM in Sodium Chloride 0.9% 50 ML IVPB SCH (21:47)
[2018-01-30] MEDS: Patient's Own Med (Dutasteride [Avodart] 0.5 MG) PO SCH (08:23)
[2018-01-30] MEDS: Digoxin 500 mcg/2ml (0.5 mg/2ml) Inj IVP SCH (08:24)
[2018-01-30] MEDS: Cefepime 1 GM in Sodium Chloride 0.9% 50 ML IVPB SCH ×2 (08:26→21:04)
[2018-01-30] MEDS: Cholecalciferol 1,000 INTLU TAB PO SCH (08:27)
[2018-01-30] MEDS: Pantoprazole 40 mg EC Tab PO SCH (08:27)
--- NOTE | 2018-01-30 17:54 | CP.PCM.PN ---
Subjective - Date & Time of Evaluation Date of Evaluation: 01/30/18 Time of Evaluation: 11:00 - Subjective Subjective: F/U Respiratory Failure awake , answer questions , follows commands Objective - Vital Signs/Intake and Output Vital Signs (last 24 hours): Temp Pulse Resp BP Pulse Ox 97.4 F L 63 17 173/72 H 100 01/30/18 16:29 01/30/18 16:39 01/30/18 16:51 01/30/18 16:39 01/30/18 16:29 Intake and Output: 01/30/18 01/30/18 06:59 18:59 Intake Total 500 Output Total 450 Balance 50 - Medications Medications: Current Medications Acetaminophen (Tylenol 325mg Tab) 650 mg PO Q4 PRN PRN Reason: Fever >100.4 F Last Admin: 01/26/18 00:48 Dose: 650 mg Apixaban (Eliquis) 2.5 mg PO BID [facility] PRN Reason: Protocol Last Admin: 01/30/18 16:40 Dose: 2.5 mg Cholecalciferol (Vitamin D) 5,000 intlu PO DAILY [facility] Last Admin: 01/30/18 08:27 Dose: 5,000 intlu Digoxin (Lanoxin) 0.125 mg IVP DAILY [facility] Last Admin: 01/30/18 08:24 Dose: 0.125 mg Diltiazem HCl (Cardizem) 60 mg PO Q6 [facility] Last Admin: 01/30/18 16:39 Dose: 60 mg Furosemide (Lasix) 40 mg IV DAILY [facility] Last Admin: 01/30/18 08:25 Dose: 40 mg Home Med (Dutasteride [Avodart]) 0.5 mg PO DAILY [facility] Last Admin: 01/30/18 08:23 Dose: 0.5 mg Cefepime HCl 1 gm/ Sodium (Chloride) 50 mls @ 50 mls/hr IVPB Q12 [facility] PRN Reason: Protocol Last Admin: 01/30/18 08:26 Dose: 50 mls/hr Lamotrigine (Lamictal) 100 mg PO Q12 [facility] Last Admin: 01/30/18 08:24 Dose: 100 mg Metoprolol Tartrate (Lopressor) 25 mg PO Q12 [facility] Last Admin: 01/30/18 08:26 Dose: 25 mg Pantoprazole Sodium (Protonix Ec Tab) 40 mg PO DAILY [facility] Last Admin: 01/30/18 08:27 Dose: 40 mg - Labs Labs: 01/27/18 08:07 01/27/18 08:07 PT 15.4 Seconds (9.8-13.1) H 01/05/18 05:30 INR 1.4 (0.9-1.2) H 01/05/18 05:30 APTT 27.6 Seconds (25.6-37.1) 01/05/18 05:30 - Constitutional Appears: Chronically Ill - Head Exam Head Exam: NORMAL INSPECTION - Eye Exam Eye Exam: PERRL - ENT Exam ENT Exam: Normal Exam Additional comments: high flow O2 - Neck Exam Neck Exam: Normal Inspection - Respiratory Exam Respiratory Exam: Decreased Breath Sounds (at bases) - Cardiovascular Exam Cardiovascular Exam: Irregular Rhythm - GI/Abdominal Exam GI & Abdominal Exam: Soft, Normal Bowel Sounds - Extremities Exam Extremities Exam: Normal Inspection - Back Exam Additional comments: Back and L-S lesions healing well. - Neurological Exam Neurological Exam: Alert Additional comments: No focal motor sensory deficit, generalized weakness. - Psychiatric Exam Psychiatric exam: Anxious - Skin Skin Exam: Warm Assessment and Plan (1) Acute respiratory failure with hypoxia Status: Chronic (2) Encephalopathy Status: Acute (3) Diastolic CHF, acute on chronic Status: Chronic (4) Hx of seizure disorder Status: Chronic (5) A-fib Status: Chronic (6) CANDELARIA (acute kidney injury) Status: Resolved (7) Anemia Status: Chronic (8) Aortic valve vegetation Status: Chronic (9) SUSAN (obstructive sleep apnea) Status: Deleted (10) Pulmonary hypertension Status: Chronic (11) Clostridium difficile infection Status: Resolved (12) Hypertension Status: Chronic (13) Urinary tract infection due to Proteus Status: Acute (14) Abdominal pain Status: Resolved - Assessment and Plan (Free Text) Plan: continue Cefepime , Cardizem , Lopressor , Digoxin , Lasix , Eliquis , Wang Cath , f/u repeat U C-S
[2018-01-31] MEDS: Cholecalciferol 1,000 INTLU TAB PO SCH (09:42)
[2018-01-31] MEDS: Patient's Own Med (Dutasteride [Avodart] 0.5 MG) PO SCH (09:44)
[2018-01-31] MEDS: Pantoprazole 40 mg EC Tab PO SCH (09:45)
[2018-01-31] MEDS: Digoxin 500 mcg/2ml (0.5 mg/2ml) Inj IVP SCH (09:56)
[2018-01-31] MEDS: Cefepime 1 GM in Sodium Chloride 0.9% 50 ML IVPB SCH (09:56)
--- NOTE | 2018-01-31 12:04 | CP.PCM.PN ---
Subjective - Date & Time of Evaluation Date of Evaluation: 01/31/18 Time of Evaluation: 11:00 - Subjective Subjective: F/U Respiratory Failure awake, speak with 2-3 word at a time, smiling Objective - Vital Signs/Intake and Output Vital Signs (last 24 hours): Temp Pulse Resp BP Pulse Ox 98.2 F 62 16 159/77 H 100 01/31/18 08:00 01/31/18 09:44 01/31/18 11:07 01/31/18 09:44 01/31/18 08:00 - Medications Medications: Current Medications Acetaminophen (Tylenol 325mg Tab) 650 mg PO Q4 PRN PRN Reason: Fever >100.4 F Last Admin: 01/26/18 00:48 Dose: 650 mg Apixaban (Eliquis) 2.5 mg PO BID [facility] PRN Reason: Protocol Last Admin: 01/31/18 09:44 Dose: 2.5 mg Cholecalciferol (Vitamin D) 5,000 intlu PO DAILY [facility] Last Admin: 01/31/18 09:42 Dose: 5,000 intlu Digoxin (Lanoxin) 0.125 mg IVP DAILY [facility] Last Admin: 01/31/18 09:56 Dose: 0.125 mg Diltiazem HCl (Cardizem) 60 mg PO Q6 [facility] Last Admin: 01/31/18 09:44 Dose: 60 mg Furosemide (Lasix) 40 mg IV DAILY [facility] Last Admin: 01/31/18 09:41 Dose: 40 mg Home Med (Dutasteride [Avodart]) 0.5 mg PO DAILY [facility] Last Admin: 01/31/18 09:44 Dose: 0.5 mg Cefepime HCl 1 gm/ Sodium (Chloride) 50 mls @ 50 mls/hr IVPB Q12 [facility] PRN Reason: Protocol Last Admin: 01/31/18 09:56 Dose: 50 mls/hr Lamotrigine (Lamictal) 100 mg PO Q12 [facility] Last Admin: 01/31/18 09:45 Dose: 100 mg Metoprolol Tartrate (Lopressor) 25 mg PO Q12 [facility] Last Admin: 01/31/18 09:43 Dose: 25 mg Pantoprazole Sodium (Protonix Ec Tab) 40 mg PO DAILY [facility] Last Admin: 01/31/18 09:45 Dose: 40 mg - Labs Labs: 01/27/18 08:07 03/19/18 08:07 PT 15.4 Seconds (9.8-13.1) H 01/05/18 05:30 INR 1.4 (0.9-1.2) H 01/05/18 05:30 APTT 27.6 Seconds (25.6-37.1) 01/05/18 05:30 - Constitutional Appears: Chronically Ill - Head Exam Head Exam: NORMAL INSPECTION - Eye Exam Eye Exam: PERRL - ENT Exam ENT Exam: Normal Exam - Neck Exam Additional comments: tendency to lean to Left - Respiratory Exam Respiratory Exam: Decreased Breath Sounds (at bases) - Cardiovascular Exam Cardiovascular Exam: Irregular Rhythm - GI/Abdominal Exam GI & Abdominal Exam: Soft, Normal Bowel Sounds - Exam Additional comments: Wang Cath - Extremities Exam Extremities Exam: Normal Inspection - Back Exam Additional comments: Back , L-S lesions healing well - Neurological Exam Neurological Exam: Alert, Awake (no focal motor/sensory deficit , generalized weaknes) - Psychiatric Exam Psychiatric exam: Anxious - Skin Skin Exam: Warm Assessment and Plan (1) Acute respiratory failure with hypoxia Status: Chronic (2) Encephalopathy Status: Chronic (3) Diastolic CHF, acute on chronic Status: Chronic (4) Hx of seizure disorder Status: Chronic (5) A-fib Status: Chronic (6) CANDELARIA (acute kidney injury) Status: Resolved (7) Anemia Status: Chronic (8) Aortic valve vegetation Status: Chronic (9) SUSAN (obstructive sleep apnea) Status: Deleted (10) Pulmonary hypertension Status: Chronic (11) Clostridium difficile infection Status: Resolved (12) Hypertension Status: Chronic (13) Abdominal pain Status: Resolved (14) UTI (urinary tract infection) Status: Acute - Assessment and Plan (Free Text) Plan: U C-S 01-31 Psudomonas , ID f/u insert a new Wang , repeat U-S , Patient on Cefepime , Cardizem , Lanoxin , Lopressor , Digoxin , Lasix , Eliquis
--- NOTE | 2018-01-31 12:46 | CP.PCM.PN ---
Subjective - Date & Time of Evaluation Date of Evaluation: 01/31/18 Time of Evaluation: 10:00 - Subjective Subjective: events noted urine growing pseudomonas however no fever or leukocytosis and has been treated for over 7 days new ko to be placed and cultures to be sent- antibiotics to be held and to reeval Objective - Vital Signs/Intake and Output Vital Signs (last 24 hours): Temp Pulse Resp BP Pulse Ox 98.2 F 65 18 162/71 H 100 01/31/18 12:00 01/31/18 12:00 01/31/18 12:00 01/31/18 12:00 01/31/18 12:00 - Medications Medications: Current Medications Acetaminophen (Tylenol 325mg Tab) 650 mg PO Q4 PRN PRN Reason: Fever >100.4 F Last Admin: 01/26/18 00:48 Dose: 650 mg Apixaban (Eliquis) 2.5 mg PO BID [facility] PRN Reason: Protocol Last Admin: 01/31/18 09:44 Dose: 2.5 mg Cholecalciferol (Vitamin D) 5,000 intlu PO DAILY [facility] Last Admin: 01/31/18 09:42 Dose: 5,000 intlu Digoxin (Lanoxin) 0.125 mg IVP DAILY [facility] Last Admin: 01/31/18 09:56 Dose: 0.125 mg Diltiazem HCl (Cardizem) 60 mg PO Q6 [facility] Last Admin: 01/31/18 09:44 Dose: 60 mg Furosemide (Lasix) 40 mg IV DAILY [facility] Last Admin: 01/31/18 09:41 Dose: 40 mg Home Med (Dutasteride [Avodart]) 0.5 mg PO DAILY [facility] Last Admin: 01/31/18 09:44 Dose: 0.5 mg Cefepime HCl 1 gm/ Dextrose 100 mls @ 100 mls/hr IVPB Q12 [facility] PRN Reason: Protocol Lamotrigine (Lamictal) 100 mg PO Q12 [facility] Last Admin: 01/31/18 09:45 Dose: 100 mg Metoprolol Tartrate (Lopressor) 25 mg PO Q12 [facility] Last Admin: 01/31/18 09:43 Dose: 25 mg Pantoprazole Sodium (Protonix Ec Tab) 40 mg PO DAILY [facility] Last Admin: 01/31/18 09:45 Dose: 40 mg - Labs Labs: 01/27/18 08:07 01/27/18 08:07 PT 15.4 Seconds (9.8-13.1) H 01/05/18 05:30 INR 1.4 (0.9-1.2) H 01/05/18 05:30 APTT 27.6 Seconds (25.6-37.1) 01/05/18 05:30 - Constitutional Appears: Confused, Cachectic, Chronically Ill - Head Exam Head Exam: NORMOCEPHALIC - Eye Exam Eye Exam: PERRL - ENT Exam ENT Exam: Mucous Membranes Dry - Neck Exam Neck Exam: absent: Lymphadenopathy - Respiratory Exam Respiratory Exam: Decreased Breath Sounds - Cardiovascular Exam Cardiovascular Exam: REGULAR RHYTHM - GI/Abdominal Exam GI & Abdominal Exam: Distended, Soft - Rectal Exam Rectal Exam: Deferred Assessment and Plan (1) CANDELARIA (acute kidney injury) Status: Resolved (2) Acute respiratory failure Status: Acute (3) Altered mental status Status: Acute (4) Diastolic CHF, acute on chronic Status: Chronic (5) Pleural effusion, bilateral Status: Resolved (6) Pneumonia Status: Acute (7) Aortic valve vegetation Status: Chronic
[2018-01-31] MEDS: Cefepime 1 GM in Dextrose 5% In Water 100 ML IVPB SCH (21:30)
[2018-02-01] MEDS: Cefepime 1 GM in Dextrose 5% In Water 100 ML IVPB SCH ×2 (09:16→21:44)
[2018-02-01] MEDS: Pantoprazole 40 mg EC Tab PO SCH (09:17)
[2018-02-01] MEDS: Patient's Own Med (Dutasteride [Avodart] 0.5 MG) PO SCH (09:18)
[2018-02-01] MEDS: Cholecalciferol 1,000 INTLU TAB PO SCH (09:18)
[2018-02-01] MEDS: Digoxin 500 mcg/2ml (0.5 mg/2ml) Inj IVP SCH (09:21)
--- NOTE | 2018-02-01 14:14 | CP.PCM.PN ---
Subjective - Date & Time of Evaluation Date of Evaluation: 02/01/18 Time of Evaluation: 11:00 - Subjective Subjective: F/U Respiratory Failure alert , smiling , talking , no AD Objective - Vital Signs/Intake and Output Vital Signs (last 24 hours): Temp Pulse Resp BP Pulse Ox 97.6 F 65 18 167/77 H 99 02/01/18 12:29 02/01/18 12:29 02/01/18 12:29 02/01/18 12:29 02/01/18 12:29 Intake and Output: 02/01/18 02/01/18 06:59 18:59 Intake Total 250 Output Total 300 Balance -50 - Medications Medications: Current Medications Acetaminophen (Tylenol 325mg Tab) 650 mg PO Q4 PRN PRN Reason: Fever >100.4 F Last Admin: 01/26/18 00:48 Dose: 650 mg Apixaban (Eliquis) 2.5 mg PO BID [facility] PRN Reason: Protocol Last Admin: 02/01/18 09:17 Dose: 2.5 mg Cholecalciferol (Vitamin D) 5,000 intlu PO DAILY [facility] Last Admin: 02/01/18 09:18 Dose: 5,000 intlu Digoxin (Lanoxin) 0.125 mg IVP DAILY [facility] Last Admin: 02/01/18 09:21 Dose: 0.125 mg Diltiazem HCl (Cardizem) 60 mg PO Q6 [facility] Last Admin: 02/01/18 09:17 Dose: 60 mg Furosemide (Lasix) 40 mg IV DAILY [facility] Last Admin: 02/01/18 09:18 Dose: 40 mg Home Med (Dutasteride [Avodart]) 0.5 mg PO DAILY [facility] Last Admin: 02/01/18 09:18 Dose: 0.5 mg Cefepime HCl 1 gm/ Dextrose 100 mls @ 100 mls/hr IVPB Q12 [facility] PRN Reason: Protocol Last Admin: 02/01/18 09:16 Dose: 100 mls/hr Lamotrigine (Lamictal) 100 mg PO Q12 [facility] Last Admin: 02/01/18 09:17 Dose: 100 mg Metoprolol Tartrate (Lopressor) 25 mg PO Q12 [facility] Last Admin: 02/01/18 09:17 Dose: 25 mg Pantoprazole Sodium (Protonix Ec Tab) 40 mg PO DAILY [facility] Last Admin: 02/01/18 09:17 Dose: 40 mg - Labs Labs: 01/27/18 08:07 01/27/18 08:07 PT 15.4 Seconds (9.8-13.1) H 01/05/18 05:30 INR 1.4 (0.9-1.2) H 01/05/18 05:30 APTT 27.6 Seconds (25.6-37.1) 01/05/18 05:30 - Constitutional Appears: Chronically Ill - Head Exam Head Exam: NORMAL INSPECTION - Eye Exam Eye Exam: PERRL - ENT Exam ENT Exam: Normal Exam Additional comments: high flow O2 - Neck Exam Neck Exam: Normal Inspection - Respiratory Exam Respiratory Exam: Decreased Breath Sounds (at bases) - Cardiovascular Exam Cardiovascular Exam: Irregular Rhythm - GI/Abdominal Exam GI & Abdominal Exam: Soft, Normal Bowel Sounds - Exam Additional comments: Wang Cath - Extremities Exam Extremities Exam: Normal Inspection - Back Exam Additional comments: Back , L-S lesions improved - Psychiatric Exam Psychiatric exam: Anxious - Skin Skin Exam: Warm Assessment and Plan (1) Acute respiratory failure with hypoxia Status: Chronic (2) Encephalopathy Status: Chronic (3) Diastolic CHF, acute on chronic Status: Chronic (4) Hx of seizure disorder Status: Chronic (5) A-fib Status: Chronic (6) CANDELARIA (acute kidney injury) Status: Resolved (7) Anemia Status: Chronic (8) Aortic valve vegetation Status: Chronic (9) SUSAN (obstructive sleep apnea) Status: Deleted (10) Pulmonary hypertension Status: Chronic (11) Clostridium difficile infection Status: Resolved (12) Hypertension Status: Chronic (13) Abdominal pain Status: Resolved (14) UTI (urinary tract infection) Status: Acute - Assessment and Plan (Free Text) Plan: continue Cardizem , Lopressor , Digoxin , Lasix , Eliquis , Wang Cath was changed , Patient on Cefepime , awaiting new U C-S
[2018-02-02] MEDS: Cholecalciferol 1,000 INTLU TAB PO SCH (08:59)
[2018-02-02] MEDS: Cefepime 1 GM in Dextrose 5% In Water 100 ML IVPB SCH ×2 (08:59→21:54)
[2018-02-02] MEDS: Pantoprazole 40 mg EC Tab PO SCH (09:00)
[2018-02-02] MEDS: Digoxin 500 mcg/2ml (0.5 mg/2ml) Inj IVP SCH (09:05)
[2018-02-02] MEDS: Patient's Own Med (Dutasteride [Avodart] 0.5 MG) PO SCH (09:11)
--- NOTE | 2018-02-02 13:56 | CP.PCM.PN ---
Subjective - Date & Time of Evaluation Date of Evaluation: 02/02/18 Time of Evaluation: 09:00 - Subjective Subjective: afeb repeat cultures s/p rx for pseudomonas are negative so far Objective - Vital Signs/Intake and Output Vital Signs (last 24 hours): Temp Pulse Resp BP Pulse Ox 97.7 F 66 18 146/75 100 02/02/18 12:39 02/02/18 12:39 02/02/18 12:39 02/02/18 12:39 02/02/18 12:39 Intake and Output: 02/02/18 02/02/18 06:59 18:59 Intake Total 540 Output Total 400 Balance 140 - Medications Medications: Current Medications Acetaminophen (Tylenol 325mg Tab) 650 mg PO Q4 PRN PRN Reason: Fever >100.4 F Last Admin: 01/26/18 00:48 Dose: 650 mg Apixaban (Eliquis) 2.5 mg PO BID [facility] PRN Reason: Protocol Last Admin: 02/02/18 08:58 Dose: 2.5 mg Cholecalciferol (Vitamin D) 5,000 intlu PO DAILY [facility] Last Admin: 02/02/18 08:59 Dose: 5,000 intlu Digoxin (Lanoxin) 0.125 mg IVP DAILY [facility] Last Admin: 02/02/18 09:05 Dose: 0.125 mg Diltiazem HCl (Cardizem) 60 mg PO Q6 [facility] Last Admin: 02/02/18 04:44 Dose: 60 mg Furosemide (Lasix) 40 mg IV DAILY [facility] Last Admin: 02/02/18 08:59 Dose: 40 mg Home Med (Dutasteride [Avodart]) 0.5 mg PO DAILY [facility] Last Admin: 02/02/18 09:11 Dose: 0.5 mg Cefepime HCl 1 gm/ Dextrose 100 mls @ 100 mls/hr IVPB Q12 [facility] PRN Reason: Protocol Last Admin: 02/02/18 08:59 Dose: 100 mls/hr Lamotrigine (Lamictal) 100 mg PO Q12 [facility] Last Admin: 02/02/18 08:58 Dose: 100 mg Metoprolol Tartrate (Lopressor) 25 mg PO Q12 [facility] Last Admin: 02/02/18 09:00 Dose: 25 mg Pantoprazole Sodium (Protonix Ec Tab) 40 mg PO DAILY [facility] Last Admin: 02/02/18 09:00 Dose: 40 mg - Labs Labs: 01/27/18 08:07 01/27/18 08:07 PT 15.4 Seconds (9.8-13.1) H 01/05/18 05:30 INR 1.4 (0.9-1.2) H 01/05/18 05:30 APTT 27.6 Seconds (25.6-37.1) 01/05/18 05:30 - Constitutional Appears: Non-toxic, Confused, Cachectic, Chronically Ill - Head Exam Head Exam: NORMOCEPHALIC - Eye Exam Eye Exam: PERRL - ENT Exam ENT Exam: Mucous Membranes Dry - Neck Exam Neck Exam: absent: Lymphadenopathy - Respiratory Exam Respiratory Exam: Decreased Breath Sounds - Cardiovascular Exam Cardiovascular Exam: REGULAR RHYTHM - GI/Abdominal Exam GI & Abdominal Exam: Distended - Rectal Exam Rectal Exam: Deferred - Exam Exam: NORMAL INSPECTION Assessment and Plan (1) CANDELARIA (acute kidney injury) Status: Resolved (2) Acute respiratory failure Status: Acute (3) Altered mental status Status: Acute (4) Diastolic CHF, acute on chronic Status: Chronic (5) Pleural effusion, bilateral Status: Resolved (6) Pneumonia Status: Acute (7) Aortic valve vegetation Status: Chronic - Assessment and Plan (Free Text) Assessment: hold iv antibiotics fp0r now
--- NOTE | 2018-02-02 19:50 | CP.PCM.PN ---
Subjective - Date & Time of Evaluation Date of Evaluation: 02/02/18 Time of Evaluation: 11:40 - Subjective Subjective: F/U Respiratory Failure. Pt awake, calm, no A/D, at bed side. Objective - Vital Signs/Intake and Output Vital Signs (last 24 hours): Temp Pulse Resp BP Pulse Ox 97.7 F 62 18 132/57 L 100 02/02/18 19:27 02/02/18 19:27 02/02/18 19:27 02/02/18 19:27 02/02/18 19:27 Intake and Output: 02/02/18 02/03/18 18:59 06:59 Intake Total 650 Output Total 1200 Balance -550 - Medications Medications: Current Medications Acetaminophen (Tylenol 325mg Tab) 650 mg PO Q4 PRN PRN Reason: Fever >100.4 F Last Admin: 01/26/18 00:48 Dose: 650 mg Apixaban (Eliquis) 2.5 mg PO BID [facility] PRN Reason: Protocol Last Admin: 02/02/18 16:31 Dose: 2.5 mg Cholecalciferol (Vitamin D) 5,000 intlu PO DAILY [facility] Last Admin: 02/02/18 08:59 Dose: 5,000 intlu Digoxin (Lanoxin) 0.125 mg IVP DAILY [facility] Last Admin: 02/02/18 09:05 Dose: 0.125 mg Diltiazem HCl (Cardizem) 60 mg PO Q6 [facility] Last Admin: 02/02/18 16:30 Dose: 60 mg Furosemide (Lasix) 40 mg IV DAILY [facility] Last Admin: 02/02/18 08:59 Dose: 40 mg Home Med (Dutasteride [Avodart]) 0.5 mg PO DAILY [facility] Last Admin: 02/02/18 09:11 Dose: 0.5 mg Cefepime HCl 1 gm/ Dextrose 100 mls @ 100 mls/hr IVPB Q12 [facility] PRN Reason: Protocol Last Admin: 02/02/18 08:59 Dose: 100 mls/hr Lamotrigine (Lamictal) 100 mg PO Q12 [facility] Last Admin: 02/02/18 08:58 Dose: 100 mg Metoprolol Tartrate (Lopressor) 25 mg PO Q12 [facility] Last Admin: 02/02/18 09:00 Dose: 25 mg Pantoprazole Sodium (Protonix Ec Tab) 40 mg PO DAILY [facility] Last Admin: 02/02/18 09:00 Dose: 40 mg - Labs Labs: 01/27/18 08:07 01/27/18 08:07 PT 15.4 Seconds (9.8-13.1) H 01/05/18 05:30 INR 1.4 (0.9-1.2) H 01/05/18 05:30 APTT 27.6 Seconds (25.6-37.1) 01/05/18 05:30 - Constitutional Appears: Chronically Ill - Head Exam Head Exam: NORMAL INSPECTION - Eye Exam Eye Exam: PERRL - ENT Exam Additional comments: High flow O2 - Neck Exam Neck Exam: Normal Inspection - Respiratory Exam Respiratory Exam: Decreased Breath Sounds (at bases) - Cardiovascular Exam Cardiovascular Exam: Irregular Rhythm - GI/Abdominal Exam GI & Abdominal Exam: Soft, Normal Bowel Sounds - Exam Additional comments: Wang Cath - Extremities Exam Extremities Exam: Normal Inspection - Back Exam Additional comments: Back, L-S lesion improved - Neurological Exam Neurological Exam: Alert, Awake Additional comments: No focal motor sensory deficit, generalized weakness. - Psychiatric Exam Psychiatric exam: Anxious - Skin Skin Exam: Warm Assessment and Plan (1) Acute respiratory failure with hypoxia Status: Chronic (2) Encephalopathy Status: Chronic (3) Diastolic CHF, acute on chronic Status: Chronic (4) Hx of seizure disorder Status: Chronic (5) A-fib Status: Chronic (6) CANDELARIA (acute kidney injury) Status: Resolved (7) Anemia Status: Chronic (8) Aortic valve vegetation Status: Chronic (9) SUSAN (obstructive sleep apnea) Status: Deleted (10) Pulmonary hypertension Status: Chronic (11) Clostridium difficile infection Status: Resolved (12) Hypertension Status: Chronic (13) Abdominal pain Status: Resolved (14) UTI (urinary tract infection) Status: Acute - Assessment and Plan (Free Text) Plan: Continue Lopressor, Lasix, cardizem and rest of Tx.
[2018-02-03] MEDS: Patient's Own Med (Dutasteride [Avodart] 0.5 MG) PO SCH (09:09)
[2018-02-03] MEDS: Pantoprazole 40 mg EC Tab PO SCH (09:10)
[2018-02-03] MEDS: Cholecalciferol 1,000 INTLU TAB PO SCH (09:11)
[2018-02-03] MEDS: Digoxin 500 mcg/2ml (0.5 mg/2ml) Inj IVP SCH (09:17)
--- NOTE | 2018-02-03 10:42 | CP.PCM.PCO ---
Assessment/Plan - Assessment/Plan Assessment (Free Text): Patient seen and examined. In anticipation for discharge, patient trialed off oxygen. Unable to do a walk test due to patient's mobility status. While in bed, patient's oxygen saturation tested on Room Air, patient desaturated to 84%. Patient restarted back on oxygen therapy. Will titrate oxygen to 5L via [place] and monitor oxygenation status today. All discussed with Dr Escamilla. - Problems Patient Problems: Problem List (Active/Current) Problem Status Onset Code Acute respiratory failure Acute J96.00 Acute respiratory failure with hypercapnia Acute J96.02 Acute respiratory failure with hypoxia Acute J96.01 Altered mental status Acute R41.82 Clostridium difficile infection Acute B96.89 Diastolic CHF, acute on chronic Acute I50.33 Hypernatremia Acute E87.0 Hypertension Acute I10 Hypothermia Acute T68.XXXA SUSAN treated with BiPAP Acute G47.33 Pneumonia Acute J18.9 Pulmonary hypertension Acute I27.20 S/P bronchoscopy Acute Z98.890 Supratherapeutic international normalized ratio (INR) Acute R79.1 UTI (urinary tract infection) Acute N39.0 Urinary retention Acute R33.9 Acute respiratory failure with hypoxia Chronic J96.01 Afib Chronic I48.91 Anemia Chronic D64.9 Anemia Chronic D64.9 Aortic valve vegetation Chronic I33.0 Chronic respiratory failure with hypoxia Chronic J96.11 Diastolic CHF, acute on chronic Chronic I50.33 Encephalopathy Chronic G93.40 Hypertension Chronic I10 Hypertension Chronic I10 SUSAN on CPAP Chronic G47.33, Z99.89 Pulmonary hypertension Chronic I27.20 Pulmonary hypertension Chronic I27.20 Seizure Chronic R56.9 Seizure disorder Chronic G40.909 CANDELARIA (acute kidney injury) Resolved N17.9 Abdominal pain Resolved R10.9 Clostridium difficile infection Resolved B96.89
[2018-02-03 10:44] LABS: HEMOGLOBIN 10.9 g/dL (12.0-18.0); MEAN CELL VOLUME 86.7 fl (80.0-94.0); MEAN CORPUSCULAR HEMOGLOBIN 28.8 pg (27.0-31.0); MEAN CORPUSCULAR HGB CONC 33.2 g/dL (33.0-37.0); RBC 3.78 Mil/uL (4.40-5.90); RED CELL DISTRIBUTION WIDTH 16.8 % (11.5-14.5); WHITE BLOOD COUNT 7.7 K/uL (4.8-10.8)
[2018-02-03 10:55] LABS: BLOOD UREA NITROGEN 30 mg/dl (9-20); CALCIUM 9.8 mg/dL (8.4-10.2); GFR AFRICAN-AMERICAN > 60; GFR NON-AFRICAN AMERICAN > 60
[2018-02-03 16:14] LABS: ABG ALLEN TEST YES
--- NOTE | 2018-02-03 17:12 | CP.PCM.PN ---
Subjective - Date & Time of Evaluation Date of Evaluation: 02/03/18 Time of Evaluation: 10:40 - Subjective Subjective: F/U Respiratory Failure. Objective - Vital Signs/Intake and Output Vital Signs (last 24 hours): Temp Pulse Resp BP Pulse Ox 97.6 F 62 18 127/42 L 100 02/03/18 16:30 02/03/18 16:30 02/03/18 16:30 02/03/18 16:30 02/03/18 16:30 Intake and Output: 02/03/18 02/03/18 06:59 18:59 Intake Total 520 Output Total 250 Balance 270 - Medications Medications: Current Medications Acetaminophen (Tylenol 325mg Tab) 650 mg PO Q4 PRN PRN Reason: Fever >100.4 F Last Admin: 01/26/18 00:48 Dose: 650 mg Apixaban (Eliquis) 2.5 mg PO BID [facility] PRN Reason: Protocol Last Admin: 02/03/18 09:19 Dose: 2.5 mg Cholecalciferol (Vitamin D) 5,000 intlu PO DAILY [facility] Last Admin: 02/03/18 09:11 Dose: 5,000 intlu Digoxin (Lanoxin) 0.125 mg IVP DAILY [facility] Last Admin: 02/03/18 09:17 Dose: 0.125 mg Diltiazem HCl (Cardizem) 60 mg PO Q6 [facility] Last Admin: 02/03/18 09:10 Dose: 60 mg Furosemide (Lasix) 40 mg IV DAILY [facility] Last Admin: 02/03/18 09:09 Dose: 40 mg Home Med (Dutasteride [Avodart]) 0.5 mg PO DAILY [facility] Last Admin: 02/03/18 09:09 Dose: 0.5 mg Lamotrigine (Lamictal) 100 mg PO Q12 [facility] Last Admin: 02/03/18 09:11 Dose: 100 mg Metoprolol Tartrate (Lopressor) 25 mg PO Q12 [facility] Last Admin: 02/03/18 09:10 Dose: 25 mg Pantoprazole Sodium (Protonix Ec Tab) 40 mg PO DAILY [facility] Last Admin: 02/03/18 09:10 Dose: 40 mg - Labs Labs: 02/03/18 10:15 02/03/18 10:15 PT 15.4 Seconds (9.8-13.1) H 01/05/18 05:30 INR 1.4 (0.9-1.2) H 01/05/18 05:30 APTT 27.6 Seconds (25.6-37.1) 01/05/18 05:30 - Constitutional Appears: Chronically Ill - Head Exam Head Exam: NORMAL INSPECTION - Eye Exam Eye Exam: PERRL - ENT Exam Additional comments: High flow O2 - Neck Exam Neck Exam: Normal Inspection - Respiratory Exam Respiratory Exam: Decreased Breath Sounds (at bases) - Cardiovascular Exam Cardiovascular Exam: Irregular Rhythm - GI/Abdominal Exam GI & Abdominal Exam: Soft, Normal Bowel Sounds - Exam Additional comments: Wang Cath - Extremities Exam Extremities Exam: Normal Inspection - Back Exam Additional comments: Stage 2 pressure ulcer Upper back and sacral area. - Neurological Exam Neurological Exam: Alert, Awake Additional comments: No focal motor sensory deficit, generalized weakness. - Psychiatric Exam Psychiatric exam: Anxious - Skin Skin Exam: Warm Assessment and Plan (1) Acute respiratory failure with hypoxia Status: Chronic (2) Encephalopathy Status: Chronic (3) Diastolic CHF, acute on chronic Status: Chronic (4) Hx of seizure disorder Status: Chronic (5) A-fib Status: Chronic (6) CANDELARIA (acute kidney injury) Status: Resolved (7) Anemia Status: Chronic (8) Aortic valve vegetation Status: Chronic (9) SUSAN (obstructive sleep apnea) Status: Deleted (10) Pulmonary hypertension Status: Chronic (11) Clostridium difficile infection Status: Resolved (12) Hypertension Status: Chronic (13) Abdominal pain Status: Resolved (14) UTI (urinary tract infection) Status: Acute
[2018-02-04 07:51] LABS: ARTERIAL BLOOD GAS HCO3 36.5 mmol/L (21-28); ARTERIAL BLOOD GAS HEMOGLOBIN 10.1 g/dL (11.7-17.4); ARTERIAL BLOOD GAS O2 CAPACITY 14.2 mL/dL (16-24); ARTERIAL BLOOD GAS O2 CONTENT 14.2 ML/dL (15-23); ARTERIAL BLOOD GAS O2 SAT 99.8 % (95-98); ARTERIAL BLOOD GAS PCO2 51 mm/Hg (35-45); ARTERIAL BLOOD GAS PO2 147 mm/Hg (80-100); ARTERIAL BLOOD GAS TCO2 41.4 mmol/L (22-28)
[2018-02-04] MEDS: Cholecalciferol 1,000 INTLU TAB PO SCH (09:09)
[2018-02-04] MEDS: Patient's Own Med (Dutasteride [Avodart] 0.5 MG) PO SCH (09:10)
[2018-02-04] MEDS: Pantoprazole 40 mg EC Tab PO SCH (09:10)
--- NOTE | 2018-02-04 13:10 | CP.PCM.PN ---
Subjective - Date & Time of Evaluation Date of Evaluation: 02/04/18 Time of Evaluation: 12:50 - Subjective Subjective: F/U Respiratory Failure. Pt awake, no A/D, at bed side. Objective - Vital Signs/Intake and Output Vital Signs (last 24 hours): Temp Pulse Resp BP Pulse Ox 98.3 F 60 20 146/69 100 02/04/18 12:00 02/04/18 12:00 02/04/18 12:00 02/04/18 12:00 02/04/18 12:00 Intake and Output: 02/04/18 02/04/18 06:59 18:59 Output Total 650 Balance -650 - Medications Medications: Current Medications Acetaminophen (Tylenol 325mg Tab) 650 mg PO Q4 PRN PRN Reason: Fever >100.4 F Last Admin: 01/26/18 00:48 Dose: 650 mg Apixaban (Eliquis) 2.5 mg PO BID [facility] PRN Reason: Protocol Last Admin: 02/04/18 09:10 Dose: 2.5 mg Cholecalciferol (Vitamin D) 5,000 intlu PO DAILY [facility] Last Admin: 02/04/18 09:09 Dose: 5,000 intlu Digoxin (Lanoxin) 0.125 mg IVP DAILY [facility] Last Admin: 02/03/18 09:17 Dose: 0.125 mg Diltiazem HCl (Cardizem) 60 mg PO Q6 [facility] Last Admin: 02/04/18 09:10 Dose: 60 mg Furosemide (Lasix) 40 mg IV DAILY [facility] Last Admin: 02/04/18 09:09 Dose: 40 mg Lamotrigine (Lamictal) 100 mg PO Q12 [facility] Last Admin: 02/04/18 09:10 Dose: 100 mg Metoprolol Tartrate (Lopressor) 25 mg PO Q12 [facility] Last Admin: 02/04/18 09:09 Dose: 25 mg Pantoprazole Sodium (Protonix Ec Tab) 40 mg PO DAILY [facility] Last Admin: 02/04/18 09:10 Dose: 40 mg - Labs Labs: 02/03/18 10:15 02/03/18 10:15 PT 15.4 Seconds (9.8-13.1) H 01/05/18 05:30 INR 1.4 (0.9-1.2) H 01/05/18 05:30 APTT 27.6 Seconds (25.6-37.1) 01/05/18 05:30 - Constitutional Appears: Chronically Ill - Head Exam Head Exam: NORMAL INSPECTION - Eye Exam Eye Exam: PERRL - ENT Exam ENT Exam: Normal Exam Additional comments: High flow O2 - Neck Exam Neck Exam: Normal Inspection - Respiratory Exam Respiratory Exam: Decreased Breath Sounds (at bases) - Cardiovascular Exam Cardiovascular Exam: Irregular Rhythm - GI/Abdominal Exam GI & Abdominal Exam: Soft, Normal Bowel Sounds - Exam Additional comments: Wang cath - Extremities Exam Extremities Exam: Normal Inspection - Back Exam Additional comments: Stage 2 ulcer upper back and sacral area. - Neurological Exam Neurological Exam: Alert, Awake Additional comments: No focal motor/sensory deficit, generalized weakness. - Psychiatric Exam Psychiatric exam: Anxious - Skin Skin Exam: Warm Assessment and Plan (1) Acute respiratory failure with hypoxia Status: Chronic (2) Encephalopathy Status: Chronic (3) Diastolic CHF, acute on chronic Status: Chronic (4) Hx of seizure disorder Status: Chronic (5) A-fib Status: Chronic (6) CANDELARIA (acute kidney injury) Status: Resolved (7) Anemia Status: Chronic (8) Aortic valve vegetation Status: Chronic (9) SUSAN (obstructive sleep apnea) Status: Deleted (10) Pulmonary hypertension Status: Chronic (11) Clostridium difficile infection Status: Resolved (12) Hypertension Status: Chronic (13) Abdominal pain Status: Resolved (14) UTI (urinary tract infection) Status: Acute - Assessment and Plan (Free Text) Plan: ABGs showed pO2 high last night on 147, O2 on 3L/M, decreased to 1 2/2 L/M, ABG in the evening, continue rest of Tx.
[2018-02-04 15:33] LABS: ABG ALLEN TEST YES; ARTERIAL BLOOD GAS HCO3 37.5 mmol/L (21-28); ARTERIAL BLOOD GAS HEMOGLOBIN 9.8 g/dL (11.7-17.4); ARTERIAL BLOOD GAS O2 CAPACITY 13.7 mL/dL (16-24); ARTERIAL BLOOD GAS O2 CONTENT 13.7 ML/dL (15-23); ARTERIAL BLOOD GAS O2 SAT 99.7 % (95-98); ARTERIAL BLOOD GAS PCO2 53 mm/Hg (35-45); ARTERIAL BLOOD GAS PO2 119 mm/Hg (80-100); ARTERIAL BLOOD GAS TCO2 42.9 mmol/L (22-28)
[2018-02-04] MEDS: Digoxin 500 mcg/2ml (0.5 mg/2ml) Inj IVP SCH (16:44)
[2018-02-04 22:21] LABS: ABG ALLEN TEST YES; ARTERIAL BLOOD GAS HCO3 38.1 mmol/L (21-28); ARTERIAL BLOOD GAS O2 SAT 100.1 % (95-98); ARTERIAL BLOOD GAS PCO2 59 mm/Hg (35-45); ARTERIAL BLOOD GAS PH 7.47 (7.35-7.45); ARTERIAL BLOOD GAS PO2 143 mm/Hg (80-100); ARTERIAL BLOOD GAS TCO2 44.7 mmol/L (22-28)
[2018-02-05 05:06] LABS: ABG ALLEN TEST YES; ARTERIAL BLOOD GAS HEMOGLOBIN 9.8 g/dL (11.7-17.4); ARTERIAL BLOOD GAS O2 CAPACITY 13.7 mL/dL (16-24); ARTERIAL BLOOD GAS O2 CONTENT 13.7 ML/dL (15-23); ARTERIAL BLOOD GAS O2 SAT 100.1 % (95-98); ARTERIAL BLOOD GAS PCO2 55 mm/Hg (35-45); ARTERIAL BLOOD GAS PH 7.48 (7.35-7.45); ARTERIAL BLOOD GAS PO2 117 mm/Hg (80-100); ARTERIAL BLOOD GAS TCO2 42.7 mmol/L (22-28)
[2018-02-05] MEDS: Pantoprazole 40 mg EC Tab PO SCH (10:00)
[2018-02-05] MEDS: Cholecalciferol 1,000 INTLU TAB PO SCH (10:00)
--- NOTE | 2018-02-05 15:16 | CP.PCM.PN ---
Subjective - Date & Time of Evaluation Date of Evaluation: 02/05/18 Time of Evaluation: 11:00 - Subjective Subjective: F/U Respiratory Failure. Pt awake, smiling, able to talk. Objective - Vital Signs/Intake and Output Vital Signs (last 24 hours): Temp Pulse Resp BP Pulse Ox 97.6 F 58 L 16 165/57 H 100 02/05/18 11:55 02/05/18 11:55 02/05/18 11:55 02/05/18 11:55 02/05/18 11:55 - Medications Medications: Current Medications Acetaminophen (Tylenol 325mg Tab) 650 mg PO Q4 PRN PRN Reason: Fever >100.4 F Last Admin: 01/26/18 00:48 Dose: 650 mg Apixaban (Eliquis) 2.5 mg PO BID [facility] PRN Reason: Protocol Last Admin: 02/05/18 09:59 Dose: 2.5 mg Cholecalciferol (Vitamin D) 5,000 intlu PO DAILY [facility] Last Admin: 02/05/18 10:00 Dose: 5,000 intlu Digoxin (Digoxin) 0.125 mg PO DAILY [facility] Diltiazem HCl (Cardizem) 60 mg PO Q6 [facility] Last Admin: 02/05/18 09:58 Dose: 60 mg Furosemide (Lasix) 40 mg IV DAILY [facility] Last Admin: 02/05/18 09:59 Dose: 40 mg Lamotrigine (Lamictal) 100 mg PO Q12 [facility] Last Admin: 02/05/18 09:59 Dose: 100 mg Metoprolol Tartrate (Lopressor) 25 mg PO Q12 [facility] Last Admin: 02/05/18 10:00 Dose: 25 mg Pantoprazole Sodium (Protonix Ec Tab) 40 mg PO DAILY [facility] Last Admin: 02/05/18 10:00 Dose: 40 mg - Labs Labs: 02/03/18 10:15 02/03/18 10:15 PT 15.4 Seconds (9.8-13.1) H 01/05/18 05:30 INR 1.4 (0.9-1.2) H 01/05/18 05:30 APTT 27.6 Seconds (25.6-37.1) 01/05/18 05:30 - Constitutional Appears: Chronically Ill - Head Exam Head Exam: NORMAL INSPECTION - Eye Exam Eye Exam: PERRL - ENT Exam ENT Exam: Normal Exam Additional comments: On high flow O2 - Neck Exam Neck Exam: Normal Inspection - Respiratory Exam Respiratory Exam: Decreased Breath Sounds (at bases) - Cardiovascular Exam Cardiovascular Exam: Irregular Rhythm - GI/Abdominal Exam GI & Abdominal Exam: Soft, Normal Bowel Sounds - Extremities Exam Extremities Exam: Normal Inspection - Back Exam Additional comments: Stage II ulcer, upper back/sacral area - Neurological Exam Neurological Exam: Alert, Awake Additional comments: No focal motor sensory deficit, generalized weakness. - Psychiatric Exam Psychiatric exam: Anxious - Skin Skin Exam: Warm Assessment and Plan (1) Acute respiratory failure with hypoxia Status: Chronic (2) Encephalopathy Status: Chronic (3) Diastolic CHF, acute on chronic Status: Chronic (4) Hx of seizure disorder Status: Chronic (5) A-fib Status: Chronic (6) CANDELARIA (acute kidney injury) Status: Resolved (7) Anemia Status: Chronic (8) Aortic valve vegetation Status: Chronic (9) SUSAN (obstructive sleep apnea) Status: Deleted (10) Pulmonary hypertension Status: Chronic (11) Clostridium difficile infection Status: Resolved (12) Hypertension Status: Chronic (13) Abdominal pain Status: Resolved (14) UTI (urinary tract infection) Status: Acute - Assessment and Plan (Free Text) Plan: Continue current Tx, trial of DC ko to assess if able to void.
[2018-02-06] MEDS ORDERED: AVODART 0.5 MG PO SCH (09:00)
[2018-02-06] MEDS: Digoxin 125 mcg (0.125 mg) Tab PO SCH (09:48)
[2018-02-06] MEDS: Pantoprazole 40 mg EC Tab PO SCH (09:49)
[2018-02-06] MEDS: Cholecalciferol 1,000 INTLU TAB PO SCH (09:49)
[2018-02-06 10:40] LABS: ABG ALLEN TEST YES; ARTERIAL BLOOD GAS HCO3 38.1 mmol/L (21-28); ARTERIAL BLOOD GAS HEMOGLOBIN 9.7 g/dL (11.7-17.4); ARTERIAL BLOOD GAS O2 CAPACITY 13.5 mL/dL (16-24); ARTERIAL BLOOD GAS O2 CONTENT 13.5 ML/dL (15-23); ARTERIAL BLOOD GAS PCO2 54 mm/Hg (35-45); ARTERIAL BLOOD GAS PO2 105 mm/Hg (80-100); ARTERIAL BLOOD GAS TCO2 43.8 mmol/L (22-28)
[2018-02-06 12:27] LABS: HEMOGLOBIN 10.5 g/dL (12.0-18.0); MEAN CELL VOLUME 87.1 fl (80.0-94.0); MEAN CORPUSCULAR HEMOGLOBIN 28.8 pg (27.0-31.0); RBC 3.66 Mil/uL (4.40-5.90); WHITE BLOOD COUNT 5.9 K/uL (4.8-10.8)
[2018-02-06 12:40] LABS: BLOOD UREA NITROGEN 44 mg/dl (9-20); GFR AFRICAN-AMERICAN > 60; GFR NON-AFRICAN AMERICAN 58
--- NOTE | 2018-02-06 18:21 | CP.PCM.PN ---
Subjective - Date & Time of Evaluation Date of Evaluation: 02/06/18 Time of Evaluation: 11:15 - Subjective Subjective: F/U Respiratory failure. Awake, answer questions. Objective - Vital Signs/Intake and Output Vital Signs (last 24 hours): Temp Pulse Resp BP Pulse Ox 97.4 F L 60 18 144/63 100 02/06/18 16:00 02/06/18 16:36 02/06/18 16:00 02/06/18 16:36 02/06/18 16:00 - Medications Medications: Current Medications Acetaminophen (Tylenol 325mg Tab) 650 mg PO Q4 PRN PRN Reason: Fever >100.4 F Last Admin: 01/26/18 00:48 Dose: 650 mg Apixaban (Eliquis) 2.5 mg PO BID [facility] PRN Reason: Protocol Last Admin: 02/06/18 16:44 Dose: 2.5 mg Cholecalciferol (Vitamin D) 5,000 intlu PO DAILY [facility] Last Admin: 02/06/18 09:49 Dose: 5,000 intlu Digoxin (Digoxin) 0.125 mg PO DAILY [facility] Last Admin: 02/06/18 09:48 Dose: 0.125 mg Diltiazem HCl (Cardizem) 60 mg PO Q6 [facility] Last Admin: 02/06/18 16:36 Dose: 60 mg Furosemide (Lasix) 40 mg IV DAILY [facility] Last Admin: 02/06/18 09:49 Dose: 40 mg Home Med (Patient's Own Medication) 1 unit PO DAILY [facility] Last Admin: 02/06/18 09:46 Dose: 1 unit Lamotrigine (Lamictal) 100 mg PO Q12 [facility] Last Admin: 02/06/18 09:48 Dose: 100 mg Metoprolol Tartrate (Lopressor) 25 mg PO Q12 [facility] Last Admin: 02/06/18 09:46 Dose: 25 mg Pantoprazole Sodium (Protonix Ec Tab) 40 mg PO DAILY [facility] Last Admin: 02/06/18 09:49 Dose: 40 mg - Labs Labs: 02/06/18 12:02 02/06/18 12:02 PT 15.4 Seconds (9.8-13.1) H 01/05/18 05:30 INR 1.4 (0.9-1.2) H 01/05/18 05:30 APTT 27.6 Seconds (25.6-37.1) 01/05/18 05:30 - Constitutional Appears: Chronically Ill - Head Exam Head Exam: NORMAL INSPECTION - Eye Exam Eye Exam: PERRL - ENT Exam Additional comments: on High flow O2. - Neck Exam Neck Exam: Normal Inspection - Respiratory Exam Respiratory Exam: Decreased Breath Sounds (at bases) - Cardiovascular Exam Cardiovascular Exam: Irregular Rhythm - GI/Abdominal Exam GI & Abdominal Exam: Soft, Normal Bowel Sounds - Extremities Exam Extremities Exam: Normal Inspection - Back Exam Additional comments: Stage II ulcers, upper back and sacral area. - Neurological Exam Neurological Exam: Alert, Awake Additional comments: No focal motor sensory deficit, generalized weakness. - Psychiatric Exam Psychiatric exam: Anxious - Skin Skin Exam: Warm Assessment and Plan (1) Acute respiratory failure with hypoxia Status: Chronic (2) Encephalopathy Status: Chronic (3) Diastolic CHF, acute on chronic Status: Chronic (4) Hx of seizure disorder Status: Chronic (5) A-fib Status: Chronic (6) CANDELARIA (acute kidney injury) Status: Resolved (7) Anemia Status: Chronic (8) Aortic valve vegetation Status: Chronic (9) SUSAN (obstructive sleep apnea) Status: Deleted (10) Pulmonary hypertension Status: Chronic (11) Clostridium difficile infection Status: Resolved (12) Hypertension Status: Chronic (13) Abdominal pain Status: Resolved (14) UTI (urinary tract infection) Status: Acute - Assessment and Plan (Free Text) Plan: Continue current Tx, medical supply trying to find the tubing and mask for C- Pap.
[2018-02-07] MEDS: Pantoprazole 40 mg EC Tab PO SCH (09:41)
[2018-02-07] MEDS: Cholecalciferol 1,000 INTLU TAB PO SCH (09:42)
[2018-02-07] MEDS: AVODART 0.5 MG PO SCH (09:42)
--- NOTE | 2018-02-07 13:54 | CP.PCM.PN ---
Subjective - Date & Time of Evaluation Date of Evaluation: 02/07/18 Time of Evaluation: 11:20 - Subjective Subjective: F/U Respiratory failure. Pt awake, answer questions. Objective - Vital Signs/Intake and Output Vital Signs (last 24 hours): Temp Pulse Resp BP Pulse Ox 97.7 F 63 18 140/69 100 02/07/18 13:00 02/07/18 13:00 02/07/18 13:00 02/07/18 13:00 02/07/18 13:00 Intake and Output: 02/07/18 02/07/18 06:59 18:59 Intake Total 200 Balance 200 - Medications Medications: Current Medications Acetaminophen (Tylenol 325mg Tab) 650 mg PO Q4 PRN PRN Reason: Fever >100.4 F Last Admin: 01/26/18 00:48 Dose: 650 mg Apixaban (Eliquis) 2.5 mg PO BID [facility] PRN Reason: Protocol Last Admin: 02/07/18 09:40 Dose: 2.5 mg Cholecalciferol (Vitamin D) 5,000 intlu PO DAILY [facility] Last Admin: 02/07/18 09:42 Dose: 5,000 intlu Digoxin (Digoxin) 0.125 mg PO DAILY [facility] Last Admin: 02/06/18 09:48 Dose: 0.125 mg Diltiazem HCl (Cardizem) 60 mg PO Q6 [facility] Last Admin: 02/07/18 09:40 Dose: 60 mg Furosemide (Lasix) 40 mg IV DAILY [facility] Last Admin: 02/07/18 09:40 Dose: 40 mg Home Med (Patient's Own Medication) 1 unit PO DAILY [facility] Last Admin: 02/07/18 09:42 Dose: 1 unit Lamotrigine (Lamictal) 100 mg PO Q12 [facility] Last Admin: 02/07/18 09:40 Dose: 100 mg Metoprolol Tartrate (Lopressor) 25 mg PO Q12 [facility] Last Admin: 02/07/18 09:41 Dose: 25 mg Pantoprazole Sodium (Protonix Ec Tab) 40 mg PO DAILY [facility] Last Admin: 02/07/18 09:41 Dose: 40 mg - Labs Labs: 02/06/18 12:02 02/06/18 12:02 PT 15.4 Seconds (9.8-13.1) H 01/05/18 05:30 INR 1.4 (0.9-1.2) H 01/05/18 05:30 APTT 27.6 Seconds (25.6-37.1) 01/05/18 05:30 - Constitutional Appears: Chronically Ill - Head Exam Head Exam: NORMAL INSPECTION - Eye Exam Eye Exam: PERRL - ENT Exam ENT Exam: Normal Exam - Neck Exam Neck Exam: Normal Inspection - Respiratory Exam Respiratory Exam: Decreased Breath Sounds (at bases) - Cardiovascular Exam Cardiovascular Exam: Irregular Rhythm - GI/Abdominal Exam GI & Abdominal Exam: Soft, Normal Bowel Sounds - Extremities Exam Extremities Exam: Normal Inspection - Back Exam Additional comments: Stage II ulcer, upper back and sacral area - Neurological Exam Neurological Exam: Alert, Awake Additional comments: No focal motor/sensory deficit. Generalized weakness. - Psychiatric Exam Psychiatric exam: Anxious - Skin Skin Exam: Warm Assessment and Plan (1) Acute respiratory failure with hypoxia Status: Chronic (2) Encephalopathy Status: Chronic (3) Diastolic CHF, acute on chronic Status: Chronic (4) Hx of seizure disorder Status: Chronic (5) A-fib Status: Chronic (6) CANDELARIA (acute kidney injury) Status: Resolved (7) Anemia Status: Resolved (8) Aortic valve vegetation Status: Resolved (9) SUSAN (obstructive sleep apnea) Status: Chronic (10) Pulmonary hypertension Status: Chronic (11) Clostridium difficile infection Status: Resolved (12) Hypertension Status: Chronic (13) Abdominal pain Status: Resolved (14) UTI (urinary tract infection) Status: Resolved - Assessment and Plan (Free Text) Plan: DC high flow O2, NC 5 L/M, medical supply still trying to find the tubing for the CPAP machine.
--- NOTE | 2018-02-07 15:56 | CP.PCM.PN ---
Subjective - Date & Time of Evaluation Date of Evaluation: 02/07/18 Time of Evaluation: 15:56 - Subjective Subjective: feeling fine dig levels high Objective - Vital Signs/Intake and Output Vital Signs (last 24 hours): Temp Pulse Resp BP Pulse Ox 97.7 F 63 18 140/69 100 02/07/18 13:00 02/07/18 13:00 02/07/18 13:00 02/07/18 13:00 02/07/18 13:00 Intake and Output: 02/07/18 02/07/18 06:59 18:59 Intake Total 200 Balance 200 - Medications Medications: Current Medications Acetaminophen (Tylenol 325mg Tab) 650 mg PO Q4 PRN PRN Reason: Fever >100.4 F Last Admin: 01/26/18 00:48 Dose: 650 mg Apixaban (Eliquis) 2.5 mg PO BID [facility] PRN Reason: Protocol Last Admin: 02/07/18 09:40 Dose: 2.5 mg Cholecalciferol (Vitamin D) 5,000 intlu PO DAILY [facility] Last Admin: 02/07/18 09:42 Dose: 5,000 intlu Digoxin (Digoxin) 0.125 mg PO DAILY [facility] Last Admin: 02/06/18 09:48 Dose: 0.125 mg Diltiazem HCl (Cardizem) 60 mg PO Q6 [facility] Last Admin: 02/07/18 09:40 Dose: 60 mg Furosemide (Lasix) 40 mg IV DAILY [facility] Last Admin: 02/07/18 09:40 Dose: 40 mg Home Med (Patient's Own Medication) 1 unit PO DAILY [facility] Last Admin: 02/07/18 09:42 Dose: 1 unit Lamotrigine (Lamictal) 100 mg PO Q12 [facility] Last Admin: 02/07/18 09:40 Dose: 100 mg Metoprolol Tartrate (Lopressor) 25 mg PO Q12 [facility] Last Admin: 02/07/18 09:41 Dose: 25 mg Pantoprazole Sodium (Protonix Ec Tab) 40 mg PO DAILY [facility] Last Admin: 02/07/18 09:41 Dose: 40 mg - Labs Labs: 02/06/18 12:02 02/06/18 12:02 PT 15.4 Seconds (9.8-13.1) H 01/05/18 05:30 INR 1.4 (0.9-1.2) H 01/05/18 05:30 APTT 27.6 Seconds (25.6-37.1) 01/05/18 05:30 - Constitutional Appears: Well - Head Exam Head Exam: ATRAUMATIC, NORMAL INSPECTION, NORMOCEPHALIC - Eye Exam Eye Exam: EOMI, Normal appearance, PERRL Pupil Exam: NORMAL ACCOMODATION, PERRL - ENT Exam ENT Exam: Mucous Membranes Moist, Normal Exam - Neck Exam Neck Exam: Full ROM, Normal Inspection. absent: Lymphadenopathy - Respiratory Exam Respiratory Exam: Clear to Ausculation Bilateral, NORMAL BREATHING PATTERN - Cardiovascular Exam Cardiovascular Exam: Irregular Rhythm, +S1, +S2, Murmur - GI/Abdominal Exam GI & Abdominal Exam: Soft, Normal Bowel Sounds. absent: Tenderness - Extremities Exam Extremities Exam: Full ROM, Normal Capillary Refill, Normal Inspection. absent : Joint Swelling, Pedal Edema - Back Exam Back Exam: NORMAL INSPECTION - Neurological Exam Neurological Exam: Alert, Awake, CN II-XII Intact - Psychiatric Exam Psychiatric exam: Normal Affect, Normal Mood - Skin Skin Exam: Dry, Intact, Normal Color, Warm Assessment and Plan (1) A-fib Assessment & Plan: chg digoxin to qod Status: Chronic (2) Acute on chronic diastolic (congestive) heart failure Status: Chronic (3) Acute respiratory failure with hypoxia Status: Chronic (4) Altered mental status Status: Acute (5) HTN (hypertension) Status: Chronic (6) Seizure disorder Status: Chronic (7) CANDELARIA (acute kidney injury) Status: Resolved (8) Encephalopathy Status: Chronic (9) Hypothermia Status: Acute (10) Pleural effusion, bilateral Status: Resolved (11) Supratherapeutic international normalized ratio (INR) Status: Acute (12) Acute decompensated heart failure Status: Acute (13) Atrial fibrillation with RVR Status: Acute
[2018-02-08] MEDS: Pantoprazole 40 mg EC Tab PO SCH (09:13)
[2018-02-08] MEDS: Cholecalciferol 1,000 INTLU TAB PO SCH (09:13)
[2018-02-08] MEDS: AVODART 0.5 MG PO SCH (11:00)
--- NOTE | 2018-02-08 14:41 | CP.PCM.PN ---
Subjective - Date & Time of Evaluation Date of Evaluation: 02/08/18 Time of Evaluation: 11:10 - Subjective Subjective: F/U Respiratory Failure. Pt awake, c/o of chest pain, at bed side. Objective - Vital Signs/Intake and Output Vital Signs (last 24 hours): Temp Pulse Resp BP Pulse Ox 97.6 F 76 20 173/79 H 97 02/08/18 09:03 02/08/18 09:14 02/08/18 09:03 02/08/18 09:14 02/08/18 09:03 - Medications Medications: Current Medications Acetaminophen (Tylenol 325mg Tab) 650 mg PO Q4 PRN PRN Reason: Fever >100.4 F Last Admin: 01/26/18 00:48 Dose: 650 mg Apixaban (Eliquis) 2.5 mg PO BID [facility] PRN Reason: Protocol Last Admin: 02/08/18 09:14 Dose: 2.5 mg Cholecalciferol (Vitamin D) 5,000 intlu PO DAILY [facility] Last Admin: 02/08/18 09:13 Dose: 5,000 intlu Digoxin (Digoxin) 0.125 mg PO DAILY [facility] Last Admin: 02/06/18 09:48 Dose: 0.125 mg Diltiazem HCl (Cardizem) 60 mg PO Q6 [facility] Last Admin: 02/08/18 09:13 Dose: 60 mg Furosemide (Lasix) 40 mg IV DAILY [facility] Last Admin: 02/08/18 09:14 Dose: 40 mg Home Med (Patient's Own Medication) 1 unit PO DAILY [facility] Last Admin: 02/07/18 09:42 Dose: 1 unit Lamotrigine (Lamictal) 100 mg PO Q12 [facility] Last Admin: 02/08/18 09:14 Dose: 100 mg Metoprolol Tartrate (Lopressor) 25 mg PO Q12 [facility] Last Admin: 02/08/18 09:14 Dose: 25 mg Pantoprazole Sodium (Protonix Ec Tab) 40 mg PO DAILY [facility] Last Admin: 02/08/18 09:13 Dose: 40 mg - Labs Labs: 02/06/18 12:02 02/06/18 12:02 PT 15.4 Seconds (9.8-13.1) H 01/05/18 05:30 INR 1.4 (0.9-1.2) H 01/05/18 05:30 APTT 27.6 Seconds (25.6-37.1) 01/05/18 05:30 - Constitutional Appears: Chronically Ill - Head Exam Head Exam: NORMAL INSPECTION - Eye Exam Eye Exam: PERRL - ENT Exam ENT Exam: Normal Exam - Neck Exam Neck Exam: Normal Inspection - Respiratory Exam Respiratory Exam: Decreased Breath Sounds (at bases) - Cardiovascular Exam Cardiovascular Exam: REGULAR RHYTHM Additional comments: Chest wall no tenderness. PPM. - GI/Abdominal Exam GI & Abdominal Exam: Soft, Normal Bowel Sounds - Extremities Exam Extremities Exam: Normal Inspection - Back Exam Additional comments: Upper back and sacral area stage II ulcer, healed. - Neurological Exam Neurological Exam: Alert, Awake Additional comments: No focal motor/sensory deficit, generalized weakness. - Psychiatric Exam Psychiatric exam: Anxious - Skin Skin Exam: Warm Assessment and Plan (1) Acute respiratory failure with hypoxia Status: Chronic (2) Encephalopathy Status: Chronic (3) Diastolic CHF, acute on chronic Status: Chronic (4) Hx of seizure disorder Status: Chronic (5) A-fib Status: Chronic (6) CANDELARIA (acute kidney injury) Status: Resolved (7) Anemia Status: Resolved (8) Aortic valve vegetation Status: Resolved (9) Pulmonary hypertension Status: Chronic (10) Clostridium difficile infection Status: Resolved (11) Hypertension Status: Chronic (12) Abdominal pain Status: Resolved (13) UTI (urinary tract infection) Status: Resolved - Assessment and Plan (Free Text) Plan: EKG, Troponin x3, continue rest of Tx.
--- NOTE | 2018-02-09 00:11 | CARD ---
APPROVED REPORT EKG Measurement Heart [id number] <Conclusion> Ventricular-paced rhythm Abnormal ECG
[2018-02-09] MEDS: AVODART 0.5 MG PO SCH (09:06)
[2018-02-09] MEDS: Pantoprazole 40 mg EC Tab PO SCH (09:06)
[2018-02-09] MEDS: Cholecalciferol 1,000 INTLU TAB PO SCH (09:06)
--- NOTE | 2018-02-09 14:27 | CP.PCM.PN ---
Subjective - Date & Time of Evaluation Date of Evaluation: 02/08/18 Time of Evaluation: 12:30 - Subjective Subjective: F/U Respiratory failure. awake , answer questions , N/C of C/P , follows commands Objective - Vital Signs/Intake and Output Vital Signs (last 24 hours): Temp Pulse Resp BP Pulse Ox 97.9 F 60 18 149/73 100 02/09/18 13:30 02/09/18 13:30 02/09/18 13:30 02/09/18 13:30 02/09/18 13:30 - Medications Medications: Current Medications Acetaminophen (Tylenol 325mg Tab) 650 mg PO Q4 PRN PRN Reason: Fever >100.4 F Last Admin: 01/26/18 00:48 Dose: 650 mg Apixaban (Eliquis) 2.5 mg PO BID [facility] PRN Reason: Protocol Last Admin: 02/09/18 09:07 Dose: 2.5 mg Cholecalciferol (Vitamin D) 5,000 intlu PO DAILY [facility] Last Admin: 02/09/18 09:06 Dose: 5,000 intlu Digoxin (Digoxin) 0.125 mg PO DAILY [facility] Last Admin: 02/06/18 09:48 Dose: 0.125 mg Diltiazem HCl (Cardizem) 60 mg PO Q6 [facility] Last Admin: 02/09/18 09:12 Dose: 60 mg Furosemide (Lasix) 40 mg IV DAILY [facility] Last Admin: 02/09/18 09:08 Dose: 40 mg Home Med (Patient's Own Medication) 1 unit PO DAILY [facility] Last Admin: 02/09/18 09:06 Dose: 1 unit Lamotrigine (Lamictal) 100 mg PO Q12 [facility] Last Admin: 02/09/18 09:07 Dose: 100 mg Metoprolol Tartrate (Lopressor) 25 mg PO Q12 [facility] Last Admin: 02/09/18 09:11 Dose: 25 mg Pantoprazole Sodium (Protonix Ec Tab) 40 mg PO DAILY [facility] Last Admin: 02/09/18 09:06 Dose: 40 mg - Labs Labs: 02/06/18 12:02 02/06/18 12:02 PT 15.4 Seconds (9.8-13.1) H 01/05/18 05:30 INR 1.4 (0.9-1.2) H 01/05/18 05:30 APTT 27.6 Seconds (25.6-37.1) 01/05/18 05:30 - Constitutional Appears: Chronically Ill - Head Exam Head Exam: NORMAL INSPECTION - Eye Exam Eye Exam: PERRL - ENT Exam ENT Exam: Normal Exam - Neck Exam Neck Exam: Normal Inspection - Respiratory Exam Respiratory Exam: Decreased Breath Sounds (at bases), Rhonchi (few b/l) - Cardiovascular Exam Cardiovascular Exam: REGULAR RHYTHM Additional comments: PPM - GI/Abdominal Exam GI & Abdominal Exam: Soft, Normal Bowel Sounds - Extremities Exam Extremities Exam: Normal Inspection - Back Exam Additional comments: Upper back and sacral stage II ulcer, healed - Neurological Exam Neurological Exam: Awake Additional comments: No focal motor/sensory deficit, generalized weakness. - Psychiatric Exam Psychiatric exam: Anxious - Skin Skin Exam: Warm Assessment and Plan (1) Acute respiratory failure with hypoxia Status: Chronic (2) Encephalopathy Status: Chronic (3) Diastolic CHF, acute on chronic Status: Chronic (4) Hx of seizure disorder Status: Chronic (5) A-fib Status: Chronic (6) CANDELARIA (acute kidney injury) Status: Resolved (7) Anemia Status: Resolved (8) Aortic valve vegetation Status: Resolved (9) Pulmonary hypertension Status: Chronic (10) Clostridium difficile infection Status: Resolved (11) Hypertension Status: Chronic (12) Abdominal pain Status: Resolved (13) UTI (urinary tract infection) Status: Resolved - Assessment and Plan (Free Text) Plan: continue Cardizem , Lopressor , Digoxin , Eliquis , Lamictal and rest of treatment , Social Service working with medical Supply to obtain equipment needed at home for discharge
[2018-02-10 05:56] LABS: HEMOGLOBIN 11.4 g/dL (12.0-18.0); MEAN CELL VOLUME 87.4 fl (80.0-94.0); MEAN CORPUSCULAR HEMOGLOBIN 27.9 pg (27.0-31.0); MEAN CORPUSCULAR HGB CONC 31.9 g/dL (33.0-37.0); RBC 4.08 Mil/uL (4.40-5.90); RED CELL DISTRIBUTION WIDTH 17.2 % (11.5-14.5); WHITE BLOOD COUNT 12.2 K/uL (4.8-10.8)
[2018-02-10 06:20] LABS: ALB/GLOB RATIO 0.8 (1.0-2.1); ALT/SGPT 45 U/L (21-72); AST/SGOT 48 U/L (17-59); BLOOD UREA NITROGEN 46 mg/dl (9-20); CALCIUM 9.6 mg/dL (8.4-10.2); GFR AFRICAN-AMERICAN > 60; GFR NON-AFRICAN AMERICAN 58
[2018-02-10] MEDS: Cholecalciferol 1,000 INTLU TAB PO SCH (08:56)
[2018-02-10] MEDS: Pantoprazole 40 mg EC Tab PO SCH (08:57)
[2018-02-10] MEDS: AVODART 0.5 MG PO SCH (08:58)
--- NOTE | 2018-02-10 16:41 | CP.PCM.PN ---
Subjective - Date & Time of Evaluation Date of Evaluation: 02/10/18 Time of Evaluation: 11:50 - Subjective Subjective: F/U Respiratory failure. Awake , answer questions , follows commands Objective - Vital Signs/Intake and Output Vital Signs (last 24 hours): Temp Pulse Resp BP Pulse Ox 97.9 F 86 18 158/74 H 98 02/10/18 16:14 02/10/18 16:14 02/10/18 16:14 02/10/18 16:14 02/10/18 16:14 - Medications Medications: Current Medications Apixaban (Eliquis) 2.5 mg PO BID [facility] PRN Reason: Protocol Last Admin: 02/10/18 08:57 Dose: 2.5 mg Cholecalciferol (Vitamin D) 5,000 intlu PO DAILY [facility] Last Admin: 02/10/18 08:56 Dose: 5,000 intlu Digoxin (Digoxin) 0.125 mg PO DAILY [facility] Last Admin: 02/06/18 09:48 Dose: 0.125 mg Diltiazem HCl (Cardizem) 60 mg PO Q6 [facility] Last Admin: 02/10/18 09:00 Dose: 60 mg Furosemide (Lasix) 40 mg IV DAILY [facility] Last Admin: 02/10/18 08:57 Dose: 40 mg Home Med (Patient's Own Medication) 1 unit PO DAILY [facility] Last Admin: 02/10/18 08:58 Dose: 1 unit Lamotrigine (Lamictal) 100 mg PO Q12 [facility] Last Admin: 02/10/18 08:57 Dose: 100 mg Metoprolol Tartrate (Lopressor) 25 mg PO Q12 [facility] Last Admin: 02/10/18 08:57 Dose: 25 mg Pantoprazole Sodium (Protonix Ec Tab) 40 mg PO DAILY [facility] Last Admin: 02/10/18 08:57 Dose: 40 mg - Labs Labs: 02/10/18 04:55 02/10/18 04:55 PT 15.4 Seconds (9.8-13.1) H 01/05/18 05:30 INR 1.4 (0.9-1.2) H 01/05/18 05:30 APTT 27.6 Seconds (25.6-37.1) 01/05/18 05:30 - Constitutional Appears: No Acute Distress, Chronically Ill - Head Exam Head Exam: NORMAL INSPECTION - Eye Exam Eye Exam: PERRL - ENT Exam ENT Exam: Normal Exam - Neck Exam Neck Exam: Normal Inspection - Respiratory Exam Respiratory Exam: Decreased Breath Sounds (at bases) - Cardiovascular Exam Cardiovascular Exam: REGULAR RHYTHM Additional comments: PPM - GI/Abdominal Exam GI & Abdominal Exam: Soft, Normal Bowel Sounds - Extremities Exam Extremities Exam: Normal Inspection - Back Exam Additional comments: Upper back/sacral area ulcer stage II, healed. - Neurological Exam Neurological Exam: Awake Additional comments: follows commands , no focal motor/sensory deficit , generalized weakness. - Psychiatric Exam Psychiatric exam: Anxious - Skin Skin Exam: Warm Assessment and Plan (1) Acute respiratory failure with hypoxia Status: Chronic (2) Encephalopathy Status: Chronic (3) Diastolic CHF, acute on chronic Status: Chronic (4) Hx of seizure disorder Status: Chronic (5) A-fib Status: Chronic (6) CANDELARIA (acute kidney injury) Status: Resolved (7) Anemia Status: Resolved (8) Aortic valve vegetation Status: Resolved (9) SUSAN (obstructive sleep apnea) Status: Chronic (10) Pulmonary hypertension Status: Chronic (11) Clostridium difficile infection Status: Resolved (12) Hypertension Status: Chronic (13) Abdominal pain Status: Resolved (14) UTI (urinary tract infection) Status: Resolved - Assessment and Plan (Free Text) Plan: Continue Digoxin , Cardizem , Lopressor , Eliquis , and rest of treatment.
[2018-02-11] MEDS: Digoxin 125 mcg (0.125 mg) Tab PO SCH (09:41)
[2018-02-11] MEDS: AVODART 0.5 MG PO SCH (09:41)
[2018-02-11] MEDS: Pantoprazole 40 mg EC Tab PO SCH (09:41)
[2018-02-11] MEDS: Cholecalciferol 1,000 INTLU TAB PO SCH (09:42)
--- NOTE | 2018-02-11 15:10 | CP.PCM.PN ---
Subjective - Date & Time of Evaluation Date of Evaluation: 02/11/18 Time of Evaluation: 11:40 - Subjective Subjective: F/U Respiratory failure. Objective - Vital Signs/Intake and Output Vital Signs (last 24 hours): Temp Pulse Resp BP Pulse Ox 97.9 F 67 18 153/73 H 96 02/11/18 12:00 02/11/18 12:00 02/11/18 12:00 02/11/18 12:00 02/11/18 12:00 - Medications Medications: Current Medications Apixaban (Eliquis) 2.5 mg PO BID [facility] PRN Reason: Protocol Last Admin: 02/11/18 09:43 Dose: 2.5 mg Cholecalciferol (Vitamin D) 5,000 intlu PO DAILY [facility] Last Admin: 02/11/18 09:42 Dose: 5,000 intlu Digoxin (Digoxin) 0.125 mg PO DAILY [facility] Last Admin: 02/11/18 09:41 Dose: 0.125 mg Diltiazem HCl (Cardizem) 60 mg PO Q6 [facility] Last Admin: 02/11/18 09:41 Dose: 60 mg Furosemide (Lasix) 40 mg IV DAILY [facility] Last Admin: 02/11/18 09:41 Dose: 40 mg Home Med (Patient's Own Medication) 1 unit PO DAILY [facility] Last Admin: 02/11/18 09:41 Dose: 1 unit Lamotrigine (Lamictal) 100 mg PO Q12 [facility] Last Admin: 02/11/18 09:43 Dose: 100 mg Metoprolol Tartrate (Lopressor) 25 mg PO Q12 [facility] Last Admin: 02/11/18 09:43 Dose: 25 mg Pantoprazole Sodium (Protonix Ec Tab) 40 mg PO DAILY [facility] Last Admin: 02/11/18 09:41 Dose: 40 mg - Labs Labs: 02/10/18 04:55 02/10/18 04:55 PT 15.4 Seconds (9.8-13.1) H 01/05/18 05:30 INR 1.4 (0.9-1.2) H 01/05/18 05:30 APTT 27.6 Seconds (25.6-37.1) 01/05/18 05:30 - Constitutional Appears: Chronically Ill - Head Exam Head Exam: NORMAL INSPECTION - Eye Exam Eye Exam: PERRL - ENT Exam ENT Exam: Normal Exam - Neck Exam Neck Exam: Normal Inspection - Respiratory Exam Respiratory Exam: Decreased Breath Sounds (at bases) - Cardiovascular Exam Cardiovascular Exam: REGULAR RHYTHM Additional comments: PPM - GI/Abdominal Exam GI & Abdominal Exam: Soft, Normal Bowel Sounds - Extremities Exam Extremities Exam: Normal Inspection - Back Exam Additional comments: Upper back and sacral area stage II ulcer, healed. - Neurological Exam Neurological Exam: Awake Additional comments: No focal motor /sensory deficit, generalized weakness. - Psychiatric Exam Psychiatric exam: Anxious - Skin Skin Exam: Warm Assessment and Plan (1) Acute respiratory failure with hypoxia Status: Chronic (2) Encephalopathy Status: Chronic (3) Diastolic CHF, acute on chronic Status: Chronic (4) Hx of seizure disorder Status: Chronic (5) A-fib Status: Chronic (6) CANDELARIA (acute kidney injury) Status: Resolved (7) Anemia Status: Resolved (8) Aortic valve vegetation Status: Resolved (9) SUSAN (obstructive sleep apnea) Status: Chronic (10) Pulmonary hypertension Status: Chronic (11) Clostridium difficile infection Status: Resolved (12) Hypertension Status: Chronic (13) Abdominal pain Status: Resolved (14) UTI (urinary tract infection) Status: Resolved
[2018-02-11 19:14] LABS: ABG ALLEN TEST YES; ARTERIAL BLOOD GAS HCO3 37.9 mmol/L (21-28); ARTERIAL BLOOD GAS HEMOGLOBIN 9.4 g/dL (11.7-17.4); ARTERIAL BLOOD GAS O2 CAPACITY 13.3 mL/dL (16-24); ARTERIAL BLOOD GAS O2 CONTENT 13.3 ML/dL (15-23); ARTERIAL BLOOD GAS O2 SAT 100.3 % (95-98); ARTERIAL BLOOD GAS PCO2 48 mm/Hg (35-45); ARTERIAL BLOOD GAS PH 7.54 (7.35-7.45); ARTERIAL BLOOD GAS PO2 168 mm/Hg (80-100); ARTERIAL BLOOD GAS TCO2 42.5 mmol/L (22-28)
[2018-02-12] MEDS: AVODART 0.5 MG PO SCH (09:45)
[2018-02-12] MEDS: Cholecalciferol 1,000 INTLU TAB PO SCH (09:46)
[2018-02-12] MEDS: Digoxin 125 mcg (0.125 mg) Tab PO SCH (09:47)
[2018-02-12] MEDS: Pantoprazole 40 mg EC Tab PO SCH (09:47)
--- NOTE | 2018-02-12 13:25 | CP.PCM.PN ---
Subjective - Date & Time of Evaluation Date of Evaluation: 02/12/18 Time of Evaluation: 11:00 - Subjective Subjective: F/U Respiratory Failure. lethargic , arousable , follows commands Objective - Vital Signs/Intake and Output Vital Signs (last 24 hours): Temp Pulse Resp BP Pulse Ox 98.8 F 60 20 109/56 L 100 02/12/18 12:28 02/12/18 12:28 02/12/18 12:28 02/12/18 12:28 02/12/18 12:28 - Medications Medications: Current Medications Apixaban (Eliquis) 2.5 mg PO BID [facility] PRN Reason: Protocol Last Admin: 02/12/18 09:46 Dose: 2.5 mg Cholecalciferol (Vitamin D) 5,000 intlu PO DAILY [facility] Last Admin: 02/12/18 09:46 Dose: 5,000 intlu Digoxin (Digoxin) 0.125 mg PO DAILY [facility] Last Admin: 02/12/18 09:47 Dose: 0.125 mg Diltiazem HCl (Cardizem) 60 mg PO Q6 [facility] Last Admin: 02/12/18 09:46 Dose: 60 mg Furosemide (Lasix) 40 mg IV DAILY [facility] Last Admin: 02/12/18 09:45 Dose: 40 mg Home Med (Patient's Own Medication) 1 unit PO DAILY [facility] Last Admin: 02/12/18 09:45 Dose: 1 unit Lamotrigine (Lamictal) 100 mg PO Q12 [facility] Last Admin: 02/12/18 09:47 Dose: 100 mg Metoprolol Tartrate (Lopressor) 25 mg PO Q12 [facility] Last Admin: 02/12/18 09:46 Dose: 25 mg Pantoprazole Sodium (Protonix Ec Tab) 40 mg PO DAILY [facility] Last Admin: 02/12/18 09:47 Dose: 40 mg - Labs Labs: 02/10/18 04:55 02/10/18 04:55 PT 15.4 Seconds (9.8-13.1) H 01/05/18 05:30 INR 1.4 (0.9-1.2) H 01/05/18 05:30 APTT 27.6 Seconds (25.6-37.1) 01/05/18 05:30 - Constitutional Appears: Chronically Ill - Head Exam Head Exam: NORMAL INSPECTION - Eye Exam Eye Exam: PERRL - ENT Exam ENT Exam: Normal Exam - Neck Exam Neck Exam: Normal Inspection - Respiratory Exam Respiratory Exam: Decreased Breath Sounds (at bases) - Cardiovascular Exam Cardiovascular Exam: REGULAR RHYTHM Additional comments: PPM - GI/Abdominal Exam GI & Abdominal Exam: Soft, Normal Bowel Sounds - Extremities Exam Extremities Exam: Normal Inspection - Back Exam Additional comments: upper back and sacral ulcer healed - Neurological Exam Neurological Exam: Awake (awake , confused , able to talk , moves all extremities , generalized weakness) Additional comments: lethargic ,arousable , follows commands - Psychiatric Exam Psychiatric exam: Normal Mood - Skin Skin Exam: Warm Assessment and Plan (1) Acute respiratory failure with hypoxia Status: Chronic (2) Encephalopathy Status: Chronic (3) Diastolic CHF, acute on chronic Status: Chronic (4) Hx of seizure disorder Status: Chronic (5) A-fib Status: Chronic (6) CANDELARIA (acute kidney injury) Status: Resolved (7) Anemia Status: Resolved (8) Aortic valve vegetation Status: Resolved (9) SUSAN (obstructive sleep apnea) Status: Chronic (10) Pulmonary hypertension Status: Chronic (11) Clostridium difficile infection Status: Resolved (12) Hypertension Status: Chronic (13) Abdominal pain Status: Resolved (14) UTI (urinary tract infection) Status: Resolved - Assessment and Plan (Free Text) Plan: continue Eliquis , Digoxin , Cardizem , Lopressor , Lasix , ABG PCO2 48 , PO2 168 N/c decreased 3Lm , discussed with , the CPAP part was not delivered
[2018-02-13] MEDS: AVODART 0.5 MG PO SCH (09:21)
[2018-02-13] MEDS: Pantoprazole 40 mg EC Tab PO SCH (09:21)
[2018-02-13] MEDS: Cholecalciferol 1,000 INTLU TAB PO SCH (09:23)
[2018-02-13] MEDS: Digoxin 125 mcg (0.125 mg) Tab PO SCH (09:23)
[2018-02-13 11:38] LABS: HEMOGLOBIN 9.3 g/dL (12.0-18.0); MEAN CELL VOLUME 86.4 fl (80.0-94.0); MEAN CORPUSCULAR HEMOGLOBIN 28.5 pg (27.0-31.0); RBC 3.26 Mil/uL (4.40-5.90); RED CELL DISTRIBUTION WIDTH 17.6 % (11.5-14.5); WHITE BLOOD COUNT 5.9 K/uL (4.8-10.8)
[2018-02-13 11:42] LABS: ALB/GLOB RATIO 0.8 (1.0-2.1); ALBUMIN 3.3 g/dL (3.5-5.0); CALCIUM 9.3 mg/dL (8.4-10.2)
--- NOTE | 2018-02-13 14:16 | CP.PCM.PN ---
Subjective - Date & Time of Evaluation Date of Evaluation: 02/13/18 Time of Evaluation: 14:15 - Subjective Subjective: HR stable BP fluctuant Objective - Vital Signs/Intake and Output Vital Signs (last 24 hours): Temp Pulse Resp BP Pulse Ox 97.9 F 73 18 111/52 L 100 02/13/18 12:30 02/13/18 12:30 02/13/18 12:30 02/13/18 12:30 02/13/18 12:30 - Medications Medications: Current Medications Apixaban (Eliquis) 2.5 mg PO BID [facility] PRN Reason: Protocol Last Admin: 02/13/18 09:21 Dose: 2.5 mg Cholecalciferol (Vitamin D) 5,000 intlu PO DAILY [facility] Last Admin: 02/13/18 09:23 Dose: 5,000 intlu Digoxin (Digoxin) 0.125 mg PO DAILY [facility] Last Admin: 02/13/18 09:23 Dose: 0.125 mg Diltiazem HCl (Cardizem) 60 mg PO Q6 [facility] Last Admin: 02/13/18 09:20 Dose: 60 mg Furosemide (Lasix) 40 mg IV DAILY [facility] Last Admin: 02/13/18 09:19 Dose: 40 mg Home Med (Patient's Own Medication) 1 unit PO DAILY [facility] Last Admin: 02/13/18 09:21 Dose: 1 unit Lamotrigine (Lamictal) 100 mg PO Q12 [facility] Last Admin: 02/13/18 09:22 Dose: 100 mg Metoprolol Tartrate (Lopressor) 25 mg PO Q12 [facility] Last Admin: 02/13/18 09:22 Dose: 25 mg Pantoprazole Sodium (Protonix Ec Tab) 40 mg PO DAILY [facility] Last Admin: 02/13/18 09:21 Dose: 40 mg - Labs Labs: 02/13/18 10:30 02/13/18 10:30 PT 15.4 Seconds (9.8-13.1) H 01/05/18 05:30 INR 1.4 (0.9-1.2) H 01/05/18 05:30 APTT 27.6 Seconds (25.6-37.1) 01/05/18 05:30 - Constitutional Appears: Well - Head Exam Head Exam: ATRAUMATIC, NORMAL INSPECTION, NORMOCEPHALIC - Eye Exam Eye Exam: EOMI, Normal appearance, PERRL Pupil Exam: NORMAL ACCOMODATION, PERRL - ENT Exam ENT Exam: Mucous Membranes Moist, Normal Exam - Neck Exam Neck Exam: Full ROM, Normal Inspection. absent: Lymphadenopathy - Respiratory Exam Respiratory Exam: Clear to Ausculation Bilateral, NORMAL BREATHING PATTERN - Cardiovascular Exam Cardiovascular Exam: Irregular Rhythm, +S1, +S2, Murmur - GI/Abdominal Exam GI & Abdominal Exam: Soft, Normal Bowel Sounds. absent: Tenderness - Extremities Exam Extremities Exam: Full ROM, Normal Capillary Refill, Normal Inspection. absent : Joint Swelling, Pedal Edema - Back Exam Back Exam: NORMAL INSPECTION - Neurological Exam Neurological Exam: Alert, Awake, Oriented x3 - Psychiatric Exam Psychiatric exam: Flat Affect, Normal Mood - Skin Skin Exam: Dry, Intact, Normal Color, Warm Assessment and Plan (1) A-fib Status: Chronic (2) Acute on chronic diastolic (congestive) heart failure Status: Chronic (3) Acute respiratory failure with hypoxia Status: Chronic (4) Altered mental status Status: Acute (5) HTN (hypertension) Status: Chronic (6) Seizure disorder Status: Chronic (7) CANDELARIA (acute kidney injury) Status: Resolved (8) Encephalopathy Status: Chronic (9) Hypothermia Status: Acute (10) Pleural effusion, bilateral Status: Resolved (11) Supratherapeutic international normalized ratio (INR) Status: Acute (12) Acute decompensated heart failure Status: Acute (13) Atrial fibrillation with RVR Status: Acute
--- NOTE | 2018-02-13 17:10 | CP.PCM.PN ---
Subjective - Date & Time of Evaluation Date of Evaluation: 02/13/18 Time of Evaluation: 10:20 - Subjective Subjective: F/U Respiratory Failure. awake , no AD , able to talk , follows commands Objective - Vital Signs/Intake and Output Vital Signs (last 24 hours): Temp Pulse Resp BP Pulse Ox 98.3 F 71 16 151/52 H 100 02/13/18 16:24 02/13/18 16:51 02/13/18 16:24 02/13/18 16:51 02/13/18 16:24 - Medications Medications: Current Medications Apixaban (Eliquis) 2.5 mg PO BID [facility] PRN Reason: Protocol Last Admin: 02/13/18 16:52 Dose: 2.5 mg Cholecalciferol (Vitamin D) 5,000 intlu PO DAILY [facility] Last Admin: 02/13/18 09:23 Dose: 5,000 intlu Digoxin (Digoxin) 0.125 mg PO DAILY [facility] Last Admin: 02/13/18 09:23 Dose: 0.125 mg Diltiazem HCl (Cardizem) 60 mg PO Q6 [facility] Last Admin: 02/13/18 16:51 Dose: 60 mg Furosemide (Lasix) 40 mg IV DAILY [facility] Last Admin: 02/13/18 09:19 Dose: 40 mg Home Med (Patient's Own Medication) 1 unit PO DAILY [facility] Last Admin: 02/13/18 09:21 Dose: 1 unit Lamotrigine (Lamictal) 100 mg PO Q12 [facility] Last Admin: 02/13/18 09:22 Dose: 100 mg Metoprolol Tartrate (Lopressor) 25 mg PO Q12 [facility] Last Admin: 02/13/18 09:22 Dose: 25 mg Pantoprazole Sodium (Protonix Ec Tab) 40 mg PO DAILY [facility] Last Admin: 02/13/18 09:21 Dose: 40 mg - Labs Labs: 02/13/18 10:30 02/13/18 10:30 PT 15.4 Seconds (9.8-13.1) H 01/05/18 05:30 INR 1.4 (0.9-1.2) H 01/05/18 05:30 APTT 27.6 Seconds (25.6-37.1) 01/05/18 05:30 - Constitutional Appears: Chronically Ill - Head Exam Head Exam: NORMAL INSPECTION - Eye Exam Eye Exam: PERRL - ENT Exam ENT Exam: Normal Exam - Neck Exam Neck Exam: Normal Inspection - Respiratory Exam Respiratory Exam: Decreased Breath Sounds (at bases) - Cardiovascular Exam Cardiovascular Exam: REGULAR RHYTHM Additional comments: PPM - GI/Abdominal Exam GI & Abdominal Exam: Soft, Normal Bowel Sounds - Extremities Exam Extremities Exam: Normal Inspection - Back Exam Additional comments: Stage II ulcer, healed - Neurological Exam Neurological Exam: Awake Additional comments: No focal motor/sensory deficit, generalized weakness. - Psychiatric Exam Psychiatric exam: Anxious - Skin Skin Exam: Warm Assessment and Plan (1) Acute respiratory failure with hypoxia Status: Chronic (2) Encephalopathy Status: Chronic (3) Diastolic CHF, acute on chronic Status: Chronic (4) Hx of seizure disorder Status: Chronic (5) A-fib Status: Chronic (6) CANDELARIA (acute kidney injury) Status: Resolved (7) Anemia Status: Resolved (8) Aortic valve vegetation Status: Resolved (9) SUSAN (obstructive sleep apnea) Status: Chronic (10) Pulmonary hypertension Status: Chronic (11) Clostridium difficile infection Status: Resolved (12) Hypertension Status: Chronic (13) Abdominal pain Status: Resolved (14) UTI (urinary tract infection) Status: Resolved - Assessment and Plan (Free Text) Plan: continue current treatment ,Social Service informed Patient's at bedside that Hospital bed , suction , O2 were delivered , CPAP supplies will be delivered to her home and She will bring them to Hospital for a trial of Patient using her own CPAP overnight
[2018-02-14] MEDS: Digoxin 125 mcg (0.125 mg) Tab PO SCH (09:37)
[2018-02-14] MEDS: AVODART 0.5 MG PO SCH (09:38)
[2018-02-14] MEDS: Pantoprazole 40 mg EC Tab PO SCH (09:38)
[2018-02-14] MEDS: Cholecalciferol 1,000 INTLU TAB PO SCH (09:39)
--- NOTE | 2018-02-14 15:10 | CP.PCM.PN ---
Subjective - Date & Time of Evaluation Date of Evaluation: 02/14/18 Time of Evaluation: 15:09 - Subjective Subjective: sitting on side of bed Objective - Vital Signs/Intake and Output Vital Signs (last 24 hours): Temp Pulse Resp BP Pulse Ox 98 F 74 20 127/57 L 100 02/14/18 12:00 02/14/18 13:13 02/14/18 12:00 02/14/18 13:13 02/14/18 12:00 - Medications Medications: Current Medications Apixaban (Eliquis) 2.5 mg PO BID [facility] PRN Reason: Protocol Last Admin: 02/14/18 09:37 Dose: 2.5 mg Cholecalciferol (Vitamin D) 5,000 intlu PO DAILY [facility] Last Admin: 02/14/18 09:39 Dose: 5,000 intlu Digoxin (Digoxin) 0.125 mg PO DAILY [facility] Last Admin: 02/14/18 09:37 Dose: 0.125 mg Diltiazem HCl (Cardizem) 60 mg PO Q6 [facility] Last Admin: 02/14/18 09:36 Dose: 60 mg Furosemide (Lasix) 40 mg IV DAILY [facility] Last Admin: 02/14/18 09:38 Dose: Not Given Home Med (Patient's Own Medication) 1 unit PO DAILY [facility] Last Admin: 02/14/18 09:38 Dose: 1 unit Lamotrigine (Lamictal) 100 mg PO Q12 [facility] Last Admin: 02/14/18 09:38 Dose: 100 mg Metoprolol Tartrate (Lopressor) 25 mg PO Q12 [facility] Last Admin: 02/14/18 13:13 Dose: 25 mg Pantoprazole Sodium (Protonix Ec Tab) 40 mg PO DAILY [facility] Last Admin: 02/14/18 09:38 Dose: 40 mg - Labs Labs: 02/13/18 10:30 02/13/18 10:30 PT 15.4 Seconds (9.8-13.1) H 01/05/18 05:30 INR 1.4 (0.9-1.2) H 01/05/18 05:30 APTT 27.6 Seconds (25.6-37.1) 01/05/18 05:30 - Constitutional Appears: Well - Head Exam Head Exam: ATRAUMATIC, NORMAL INSPECTION, NORMOCEPHALIC - Eye Exam Eye Exam: EOMI, Normal appearance, PERRL Pupil Exam: NORMAL ACCOMODATION, PERRL - ENT Exam ENT Exam: Mucous Membranes Moist, Normal Exam - Neck Exam Neck Exam: Full ROM, Normal Inspection. absent: Lymphadenopathy - Respiratory Exam Respiratory Exam: Clear to Ausculation Bilateral, NORMAL BREATHING PATTERN - Cardiovascular Exam Cardiovascular Exam: REGULAR RHYTHM, +S1, +S2, Murmur - GI/Abdominal Exam GI & Abdominal Exam: Soft, Normal Bowel Sounds. absent: Tenderness - Extremities Exam Extremities Exam: Full ROM, Normal Capillary Refill, Normal Inspection. absent : Joint Swelling, Pedal Edema - Back Exam Back Exam: NORMAL INSPECTION - Neurological Exam Neurological Exam: Alert, Awake, CN II-XII Intact, Normal Gait, Oriented x3 - Psychiatric Exam Psychiatric exam: Normal Affect, Normal Mood - Skin Skin Exam: Dry, Intact, Normal Color, Warm Assessment and Plan (1) A-fib Status: Chronic (2) Acute on chronic diastolic (congestive) heart failure Status: Chronic (3) Acute respiratory failure with hypoxia Status: Chronic (4) Altered mental status Status: Acute (5) HTN (hypertension) Status: Chronic (6) Seizure disorder Status: Chronic (7) CANDELARIA (acute kidney injury) Status: Resolved (8) Encephalopathy Status: Chronic (9) Hypothermia Status: Acute (10) Pleural effusion, bilateral Status: Resolved (11) Supratherapeutic international normalized ratio (INR) Status: Acute (12) Acute decompensated heart failure Status: Acute (13) Atrial fibrillation with RVR Status: Acute
--- NOTE | 2018-02-14 16:32 | CP.PCM.PN ---
Subjective - Date & Time of Evaluation Date of Evaluation: 02/14/18 Time of Evaluation: 12:40 - Subjective Subjective: F/U Respiratory Failure Pt sleepy but arousable to verbal stimuli, answer questions, follows commands. Objective - Vital Signs/Intake and Output Vital Signs (last 24 hours): Temp Pulse Resp BP Pulse Ox 97.7 F 73 20 132/65 100 02/14/18 15:43 02/14/18 15:43 02/14/18 15:43 02/14/18 15:43 02/14/18 15:43 - Medications Medications: Current Medications Apixaban (Eliquis) 2.5 mg PO BID [facility] PRN Reason: Protocol Last Admin: 02/14/18 09:37 Dose: 2.5 mg Cholecalciferol (Vitamin D) 5,000 intlu PO DAILY [facility] Last Admin: 02/14/18 09:39 Dose: 5,000 intlu Digoxin (Digoxin) 0.125 mg PO QOTHERDAY [facility] Diltiazem HCl (Cardizem) 60 mg PO Q6 [facility] Last Admin: 02/14/18 09:36 Dose: 60 mg Furosemide (Lasix) 40 mg IV DAILY [facility] Last Admin: 02/14/18 09:38 Dose: Not Given Home Med (Patient's Own Medication) 1 unit PO DAILY [facility] Last Admin: 02/14/18 09:38 Dose: 1 unit Lamotrigine (Lamictal) 100 mg PO Q12 [facility] Last Admin: 02/14/18 09:38 Dose: 100 mg Metoprolol Tartrate (Lopressor) 25 mg PO Q12 [facility] Last Admin: 02/14/18 13:13 Dose: 25 mg Pantoprazole Sodium (Protonix Ec Tab) 40 mg PO DAILY [facility] Last Admin: 02/14/18 09:38 Dose: 40 mg - Labs Labs: 02/13/18 10:30 02/13/18 10:30 PT 15.4 Seconds (9.8-13.1) H 01/05/18 05:30 INR 1.4 (0.9-1.2) H 01/05/18 05:30 APTT 27.6 Seconds (25.6-37.1) 01/05/18 05:30 - Constitutional Appears: Chronically Ill - Head Exam Head Exam: NORMAL INSPECTION - Eye Exam Eye Exam: PERRL - ENT Exam ENT Exam: Normal Exam - Neck Exam Neck Exam: Normal Inspection - Respiratory Exam Respiratory Exam: Decreased Breath Sounds (at bases) - Cardiovascular Exam Cardiovascular Exam: REGULAR RHYTHM Additional comments: PPM - GI/Abdominal Exam GI & Abdominal Exam: Soft, Normal Bowel Sounds - Extremities Exam Extremities Exam: Normal Inspection - Back Exam Additional comments: Upper back/sacral area stage II ulcer, healed. - Neurological Exam Neurological Exam: Alert, Awake Additional comments: No focal motor/sensory deficit. - Psychiatric Exam Psychiatric exam: Anxious - Skin Skin Exam: Warm Assessment and Plan (1) Acute respiratory failure with hypoxia Status: Chronic (2) Encephalopathy Status: Chronic (3) Diastolic CHF, acute on chronic Status: Chronic (4) Hx of seizure disorder Status: Chronic (5) A-fib Status: Chronic (6) CANDELARIA (acute kidney injury) Status: Resolved (7) Anemia Status: Resolved (8) Aortic valve vegetation Status: Resolved (9) SUSAN (obstructive sleep apnea) Status: Chronic (10) Pulmonary hypertension Status: Chronic (11) Clostridium difficile infection Status: Resolved (12) Hypertension Status: Chronic (13) Abdominal pain Status: Resolved (14) UTI (urinary tract infection) Status: Resolved - Assessment and Plan (Free Text) Plan: Social Service working in reference to C-PAP machine. Continue Eliquis, Lamictal, Cardizem, Lopressor and rest of Tx.
[2018-02-14 22:08] LABS: ABG ALLEN TEST YES; ARTERIAL BLOOD GAS HCO3 37.2 mmol/L (21-28); ARTERIAL BLOOD GAS HEMOGLOBIN 8.4 g/dL (11.7-17.4); ARTERIAL BLOOD GAS O2 CAPACITY 11.7 mL/dL (16-24); ARTERIAL BLOOD GAS O2 CONTENT 11.8 ML/dL (15-23); ARTERIAL BLOOD GAS O2 SAT 100.6 % (95-98); ARTERIAL BLOOD GAS PCO2 52 mm/Hg (35-45); ARTERIAL BLOOD GAS PO2 116 mm/Hg (80-100); ARTERIAL BLOOD GAS TCO2 42.2 mmol/L (22-28)
[2018-02-15 07:48] LABS: HEMOGLOBIN 8.5 g/dL (12.0-18.0); MEAN CELL VOLUME 85.8 fl (80.0-94.0); MEAN CORPUSCULAR HEMOGLOBIN 28.3 pg (27.0-31.0); RED CELL DISTRIBUTION WIDTH 17.2 % (11.5-14.5); WHITE BLOOD COUNT 5.3 K/uL (4.8-10.8)
[2018-02-15 08:00] LABS: BLOOD UREA NITROGEN 46 mg/dl (9-20); CALCIUM 9.1 mg/dL (8.4-10.2); GFR AFRICAN-AMERICAN > 60; GFR NON-AFRICAN AMERICAN 53
[2018-02-15] MEDS: Pantoprazole 40 mg EC Tab PO SCH (09:12)
[2018-02-15] MEDS: AVODART 0.5 MG PO SCH (09:12)
[2018-02-15] MEDS: Cholecalciferol 1,000 INTLU TAB PO SCH (09:13)
--- NOTE | 2018-02-15 16:05 | CP.PCM.PN ---
Subjective - Date & Time of Evaluation Date of Evaluation: 02/15/18 Time of Evaluation: 12:00 - Subjective Subjective: F/U Respiratory Failure. alert, answer questions Objective - Vital Signs/Intake and Output Vital Signs (last 24 hours): Temp Pulse Resp BP Pulse Ox 98.2 F 63 20 122/61 99 02/15/18 12:00 02/15/18 12:00 02/15/18 12:00 02/15/18 12:00 02/15/18 12:00 Intake and Output: 02/15/18 02/15/18 06:59 18:59 Intake Total 200 Balance 200 - Medications Medications: Current Medications Apixaban (Eliquis) 2.5 mg PO BID [facility] PRN Reason: Protocol Last Admin: 02/15/18 09:12 Dose: 2.5 mg Cholecalciferol (Vitamin D) 5,000 intlu PO DAILY [facility] Last Admin: 02/15/18 09:13 Dose: 5,000 intlu Digoxin (Digoxin) 0.125 mg PO QOTHERDAY [facility] Diltiazem HCl (Cardizem) 60 mg PO Q6 [facility] Last Admin: 02/15/18 09:11 Dose: 60 mg Furosemide (Lasix) 40 mg IV DAILY [facility] Last Admin: 02/14/18 09:38 Dose: Not Given Home Med (Patient's Own Medication) 1 unit PO DAILY [facility] Last Admin: 02/15/18 09:12 Dose: 1 unit Lamotrigine (Lamictal) 100 mg PO Q12 [facility] Last Admin: 02/15/18 09:12 Dose: 100 mg Metoprolol Tartrate (Lopressor) 25 mg PO Q12 [facility] Last Admin: 02/15/18 09:12 Dose: 25 mg Pantoprazole Sodium (Protonix Ec Tab) 40 mg PO DAILY [facility] Last Admin: 02/15/18 09:12 Dose: 40 mg - Labs Labs: 02/15/18 07:10 02/15/18 07:10 PT 15.4 Seconds (9.8-13.1) H 01/05/18 05:30 INR 1.4 (0.9-1.2) H 01/05/18 05:30 APTT 27.6 Seconds (25.6-37.1) 01/05/18 05:30 - Constitutional Appears: Chronically Ill - Head Exam Head Exam: NORMAL INSPECTION - Eye Exam Eye Exam: PERRL - ENT Exam ENT Exam: Normal Exam - Neck Exam Additional comments: lean to L side - Respiratory Exam Respiratory Exam: Decreased Breath Sounds (at bases) - Cardiovascular Exam Cardiovascular Exam: REGULAR RHYTHM - GI/Abdominal Exam GI & Abdominal Exam: Soft, Normal Bowel Sounds - Extremities Exam Extremities Exam: Normal Inspection - Back Exam Additional comments: sacral , back lesion healed - Neurological Exam Neurological Exam: Awake Additional comments: follows commands , gemneralized weakness - Psychiatric Exam Psychiatric exam: Anxious - Skin Skin Exam: Warm Assessment and Plan (1) Acute respiratory failure with hypoxia Status: Chronic (2) Encephalopathy Status: Chronic (3) Diastolic CHF, acute on chronic Status: Chronic (4) Hx of seizure disorder Status: Chronic (5) A-fib Status: Chronic (6) CANDELARIA (acute kidney injury) Status: Resolved (7) Anemia Status: Resolved (8) Aortic valve vegetation Status: Resolved (9) SUSAN (obstructive sleep apnea) Status: Chronic (10) Pulmonary hypertension Status: Chronic (11) Clostridium difficile infection Status: Resolved (12) Hypertension Status: Chronic (13) Abdominal pain Status: Resolved (14) UTI (urinary tract infection) Status: Resolved - Assessment and Plan (Free Text) Plan: contijnue current treatment, awaiting CPAP supplies
--- NOTE | 2018-02-15 16:58 | CP.PCM.PN ---
Subjective - Date & Time of Evaluation Date of Evaluation: 02/15/18 Time of Evaluation: 16:57 - Subjective Subjective: laying in bed HR stable dig changed to qod Objective - Vital Signs/Intake and Output Vital Signs (last 24 hours): Temp Pulse Resp BP Pulse Ox 97.8 F 88 18 158/60 H 100 02/15/18 16:12 02/15/18 16:31 02/15/18 16:12 02/15/18 16:34 02/15/18 16:12 Intake and Output: 02/15/18 02/15/18 06:59 18:59 Intake Total 200 Balance 200 - Medications Medications: Current Medications Apixaban (Eliquis) 2.5 mg PO BID [facility] PRN Reason: Protocol Last Admin: 02/15/18 16:31 Dose: 2.5 mg Cholecalciferol (Vitamin D) 5,000 intlu PO DAILY [facility] Last Admin: 02/15/18 09:13 Dose: 5,000 intlu Digoxin (Digoxin) 0.125 mg PO QOTHERDAY [facility] Diltiazem HCl (Cardizem) 60 mg PO Q6 [facility] Last Admin: 02/15/18 16:31 Dose: 60 mg Furosemide (Lasix) 40 mg IV DAILY [facility] Last Admin: 02/15/18 16:34 Dose: 40 mg Home Med (Patient's Own Medication) 1 unit PO DAILY [facility] Last Admin: 02/15/18 09:12 Dose: 1 unit Lamotrigine (Lamictal) 100 mg PO Q12 [facility] Last Admin: 02/15/18 09:12 Dose: 100 mg Metoprolol Tartrate (Lopressor) 25 mg PO Q12 [facility] Last Admin: 02/15/18 09:12 Dose: 25 mg Pantoprazole Sodium (Protonix Ec Tab) 40 mg PO DAILY [facility] Last Admin: 02/15/18 09:12 Dose: 40 mg - Labs Labs: 02/15/18 07:10 02/15/18 07:10 PT 15.4 Seconds (9.8-13.1) H 01/05/18 05:30 INR 1.4 (0.9-1.2) H 01/05/18 05:30 APTT 27.6 Seconds (25.6-37.1) 01/05/18 05:30 - Constitutional Appears: Well - Head Exam Head Exam: ATRAUMATIC, NORMAL INSPECTION, NORMOCEPHALIC - Eye Exam Eye Exam: EOMI, Normal appearance, PERRL Pupil Exam: NORMAL ACCOMODATION, PERRL - ENT Exam ENT Exam: Mucous Membranes Moist, Normal Exam - Neck Exam Neck Exam: Full ROM, Normal Inspection. absent: Lymphadenopathy - Respiratory Exam Respiratory Exam: Clear to Ausculation Bilateral, NORMAL BREATHING PATTERN - Cardiovascular Exam Cardiovascular Exam: REGULAR RHYTHM, +S1, +S2. absent: Murmur - GI/Abdominal Exam GI & Abdominal Exam: Soft, Normal Bowel Sounds. absent: Tenderness - Extremities Exam Extremities Exam: Full ROM, Normal Capillary Refill, Normal Inspection. absent : Joint Swelling, Pedal Edema - Back Exam Back Exam: NORMAL INSPECTION - Neurological Exam Neurological Exam: Alert, Awake, CN II-XII Intact, Oriented x3 - Psychiatric Exam Psychiatric exam: Normal Affect, Normal Mood - Skin Skin Exam: Dry, Intact, Normal Color, Warm Assessment and Plan (1) A-fib Status: Chronic (2) Acute on chronic diastolic (congestive) heart failure Status: Chronic (3) Acute respiratory failure with hypoxia Status: Chronic (4) Altered mental status Status: Acute (5) HTN (hypertension) Status: Chronic (6) Seizure disorder Status: Chronic (7) CANDELARIA (acute kidney injury) Status: Resolved (8) Encephalopathy Status: Chronic (9) Hypothermia Status: Acute (10) Pleural effusion, bilateral Status: Resolved (11) Supratherapeutic international normalized ratio (INR) Status: Acute (12) Acute decompensated heart failure Status: Acute (13) Atrial fibrillation with RVR Status: Acute
[2018-02-16] MEDS: Digoxin 125 mcg (0.125 mg) Tab PO SCH (10:12)
[2018-02-16] MEDS: Cholecalciferol 1,000 INTLU TAB PO SCH (10:14)
[2018-02-16] MEDS: AVODART 0.5 MG PO SCH (10:16)
[2018-02-16] MEDS: Pantoprazole 40 mg EC Tab PO SCH (10:16)
--- NOTE | 2018-02-16 16:02 | CP.PCM.PN ---
Subjective - Date & Time of Evaluation Date of Evaluation: 02/16/18 Time of Evaluation: 11:30 - Subjective Subjective: F/U Respiratory Failure. no AD , answer questions , smiling , follows commands Objective - Vital Signs/Intake and Output Vital Signs (last 24 hours): Temp Pulse Resp BP Pulse Ox 97 F L 60 20 128/62 100 02/16/18 13:00 02/16/18 13:00 02/16/18 13:00 02/16/18 13:00 02/16/18 13:00 - Medications Medications: Current Medications Apixaban (Eliquis) 2.5 mg PO BID [facility] PRN Reason: Protocol Last Admin: 02/16/18 10:14 Dose: 2.5 mg Cholecalciferol (Vitamin D) 5,000 intlu PO DAILY [facility] Last Admin: 02/16/18 10:14 Dose: 5,000 intlu Digoxin (Digoxin) 0.125 mg PO QOTHERDAY [facility] Last Admin: 02/16/18 10:12 Dose: 0.125 mg Diltiazem HCl (Cardizem) 60 mg PO Q6 [facility] Last Admin: 02/16/18 10:24 Dose: 60 mg Furosemide (Lasix) 40 mg IV DAILY [facility] Last Admin: 02/16/18 10:13 Dose: 40 mg Home Med (Patient's Own Medication) 1 unit PO DAILY [facility] Last Admin: 02/16/18 10:16 Dose: 1 unit Lamotrigine (Lamictal) 100 mg PO Q12 [facility] Last Admin: 02/16/18 10:11 Dose: 100 mg Metoprolol Tartrate (Lopressor) 25 mg PO Q12 [facility] Last Admin: 02/16/18 10:12 Dose: 25 mg Pantoprazole Sodium (Protonix Ec Tab) 40 mg PO DAILY [facility] Last Admin: 02/16/18 10:16 Dose: 40 mg - Labs Labs: 02/15/18 07:10 02/15/18 07:10 PT 15.4 Seconds (9.8-13.1) H 01/05/18 05:30 INR 1.4 (0.9-1.2) H 01/05/18 05:30 APTT 27.6 Seconds (25.6-37.1) 01/05/18 05:30 - Constitutional Appears: Chronically Ill - Head Exam Head Exam: NORMAL INSPECTION - Eye Exam Eye Exam: PERRL - ENT Exam ENT Exam: Normal Exam - Neck Exam Additional comments: lean to Left side - Respiratory Exam Respiratory Exam: Decreased Breath Sounds (at bases) - Cardiovascular Exam Cardiovascular Exam: REGULAR RHYTHM - GI/Abdominal Exam GI & Abdominal Exam: Soft, Normal Bowel Sounds - Extremities Exam Extremities Exam: Normal Inspection - Back Exam Additional comments: sacral . back lesions healed - Neurological Exam Neurological Exam: Alert, CN II-XII Intact Additional comments: generalized weakness - Psychiatric Exam Psychiatric exam: Anxious - Skin Skin Exam: Warm Assessment and Plan (1) Acute respiratory failure with hypoxia Status: Chronic (2) Encephalopathy Status: Chronic (3) Diastolic CHF, acute on chronic Status: Chronic (4) Hx of seizure disorder Status: Chronic (5) A-fib Status: Chronic (6) CANDELARIA (acute kidney injury) Status: Resolved (7) Anemia Status: Resolved (8) Aortic valve vegetation Status: Resolved (9) SUSAN (obstructive sleep apnea) Status: Chronic (10) Pulmonary hypertension Status: Chronic (11) Clostridium difficile infection Status: Resolved (12) Hypertension Status: Chronic (13) Abdominal pain Status: Resolved (14) UTI (urinary tract infection) Status: Resolved - Assessment and Plan (Free Text) Plan: continue Cardizem , Digoxin , Lasix , Lopressor , Lamictal , awaiting CPAP supplies.
[2018-02-17] MEDS: Pantoprazole 40 mg EC Tab PO SCH (08:37)
[2018-02-17] MEDS: Cholecalciferol 1,000 INTLU TAB PO SCH (08:38)
[2018-02-17] MEDS: AVODART 0.5 MG PO SCH (08:38)
--- NOTE | 2018-02-17 13:05 | CP.PCM.PN ---
Subjective - Date & Time of Evaluation Date of Evaluation: 02/17/18 Time of Evaluation: 11:20 - Subjective Subjective: F/U Respiratory Failure. awake , alert , smiling Objective - Vital Signs/Intake and Output Vital Signs (last 24 hours): Temp Pulse Resp BP Pulse Ox 98.1 F 80 20 122/60 98 02/17/18 12:30 02/17/18 12:30 02/17/18 12:30 02/17/18 12:30 02/17/18 12:30 Intake and Output: 02/17/18 02/17/18 06:59 18:59 Intake Total 1200 Balance 1200 - Medications Medications: Current Medications Cholecalciferol (Vitamin D) 5,000 intlu PO DAILY [facility] Last Admin: 02/17/18 08:38 Dose: 5,000 intlu Digoxin (Digoxin) 0.125 mg PO QOTHERDAY [facility] Last Admin: 02/16/18 10:12 Dose: 0.125 mg Diltiazem HCl (Cardizem) 60 mg PO Q6 [facility] Last Admin: 02/17/18 04:47 Dose: 60 mg Furosemide (Lasix) 40 mg IV DAILY [facility] Last Admin: 02/17/18 08:38 Dose: 40 mg Home Med (Patient's Own Medication) 1 unit PO DAILY [facility] Last Admin: 02/17/18 08:38 Dose: 1 unit Lamotrigine (Lamictal) 100 mg PO Q12 [facility] Last Admin: 02/17/18 08:37 Dose: 100 mg Metoprolol Tartrate (Lopressor) 25 mg PO Q12 [facility] Last Admin: 02/17/18 08:37 Dose: 25 mg Pantoprazole Sodium (Protonix Ec Tab) 40 mg PO DAILY [facility] Last Admin: 02/17/18 08:37 Dose: 40 mg - Labs Labs: 02/15/18 07:10 02/15/18 07:10 PT 15.4 Seconds (9.8-13.1) H 01/05/18 05:30 INR 1.4 (0.9-1.2) H 01/05/18 05:30 APTT 27.6 Seconds (25.6-37.1) 01/05/18 05:30 - Constitutional Appears: No Acute Distress, Chronically Ill - Head Exam Head Exam: NORMAL INSPECTION - Eye Exam Eye Exam: PERRL - ENT Exam ENT Exam: Normal Exam - Neck Exam Neck Exam: Normal Inspection - Respiratory Exam Respiratory Exam: Decreased Breath Sounds (AT BASES) - Cardiovascular Exam Cardiovascular Exam: REGULAR RHYTHM Additional comments: PPM - GI/Abdominal Exam GI & Abdominal Exam: Soft, Normal Bowel Sounds - Extremities Exam Extremities Exam: Normal Inspection - Back Exam Additional comments: uper back and sacral area stage II uler, healed - Neurological Exam Neurological Exam: Alert, Awake Additional comments: No focal motor sensory deficit, generalized weakness. - Psychiatric Exam Psychiatric exam: Anxious - Skin Skin Exam: Warm Assessment and Plan (1) Acute respiratory failure with hypoxia Status: Chronic (2) Encephalopathy Status: Chronic (3) Diastolic CHF, acute on chronic Status: Chronic (4) Hx of seizure disorder Status: Chronic (5) A-fib Status: Chronic (6) CANDELARIA (acute kidney injury) Status: Resolved (7) Anemia Status: Resolved (8) Aortic valve vegetation Status: Resolved (9) SUSAN (obstructive sleep apnea) Status: Chronic (10) Pulmonary hypertension Status: Chronic (11) Clostridium difficile infection Status: Resolved (12) Hypertension Status: Chronic (13) Abdominal pain Status: Resolved (14) UTI (urinary tract infection) Status: Resolved
--- NOTE | 2018-02-17 16:59 | CP.PCM.PN ---
Subjective - Date & Time of Evaluation Date of Evaluation: 02/17/18 Time of Evaluation: 16:58 - Subjective Subjective: no complaints HR stable Objective - Vital Signs/Intake and Output Vital Signs (last 24 hours): Temp Pulse Resp BP Pulse Ox 97.3 F L 80 18 135/67 100 02/17/18 16:27 02/17/18 16:27 02/17/18 16:27 02/17/18 16:27 02/17/18 16:27 Intake and Output: 02/17/18 02/17/18 06:59 18:59 Intake Total 1200 Balance 1200 - Medications Medications: Current Medications Cholecalciferol (Vitamin D) 5,000 intlu PO DAILY [facility] Last Admin: 02/17/18 08:38 Dose: 5,000 intlu Digoxin (Digoxin) 0.125 mg PO QOTHERDAY [facility] Last Admin: 02/16/18 10:12 Dose: 0.125 mg Diltiazem HCl (Cardizem) 60 mg PO Q6 [facility] Last Admin: 02/17/18 16:18 Dose: 60 mg Furosemide (Lasix) 40 mg IV DAILY [facility] Last Admin: 02/17/18 08:38 Dose: 40 mg Home Med (Patient's Own Medication) 1 unit PO DAILY [facility] Last Admin: 02/17/18 08:38 Dose: 1 unit Lamotrigine (Lamictal) 100 mg PO Q12 [facility] Last Admin: 02/17/18 08:37 Dose: 100 mg Metoprolol Tartrate (Lopressor) 25 mg PO Q12 [facility] Last Admin: 02/17/18 08:37 Dose: 25 mg Pantoprazole Sodium (Protonix Ec Tab) 40 mg PO DAILY [facility] Last Admin: 02/17/18 08:37 Dose: 40 mg - Labs Labs: 02/15/18 07:10 02/15/18 07:10 PT 15.4 Seconds (9.8-13.1) H 01/05/18 05:30 INR 1.4 (0.9-1.2) H 01/05/18 05:30 APTT 27.6 Seconds (25.6-37.1) 01/05/18 05:30 - Constitutional Appears: Well - Head Exam Head Exam: ATRAUMATIC, NORMAL INSPECTION, NORMOCEPHALIC - Eye Exam Eye Exam: EOMI, Normal appearance, PERRL Pupil Exam: NORMAL ACCOMODATION, PERRL - ENT Exam ENT Exam: Mucous Membranes Moist, Normal Exam - Neck Exam Neck Exam: Full ROM, Normal Inspection. absent: Lymphadenopathy - Respiratory Exam Respiratory Exam: Clear to Ausculation Bilateral, NORMAL BREATHING PATTERN - Cardiovascular Exam Cardiovascular Exam: Irregular Rhythm, +S1, +S2, Murmur - GI/Abdominal Exam GI & Abdominal Exam: Soft, Normal Bowel Sounds. absent: Tenderness - Extremities Exam Extremities Exam: Full ROM, Normal Capillary Refill, Normal Inspection. absent : Joint Swelling, Pedal Edema - Back Exam Back Exam: NORMAL INSPECTION - Neurological Exam Neurological Exam: Alert, Awake, CN II-XII Intact, Oriented x3 - Psychiatric Exam Psychiatric exam: Normal Affect, Normal Mood - Skin Skin Exam: Dry, Intact, Normal Color, Warm Assessment and Plan (1) A-fib Status: Chronic (2) Acute on chronic diastolic (congestive) heart failure Status: Chronic (3) Acute respiratory failure with hypoxia Status: Chronic (4) Altered mental status Status: Acute (5) HTN (hypertension) Status: Chronic (6) Seizure disorder Status: Chronic (7) CANDELARIA (acute kidney injury) Status: Resolved (8) Encephalopathy Status: Chronic (9) Hypothermia Status: Acute (10) Pleural effusion, bilateral Status: Resolved (11) Supratherapeutic international normalized ratio (INR) Status: Acute (12) Acute decompensated heart failure Status: Acute (13) Atrial fibrillation with RVR Status: Acute
[2018-02-18 04:25] LABS: ABG ALLEN TEST YES; ARTERIAL BLOOD GAS HCO3 37.1 mmol/L (21-28); ARTERIAL BLOOD GAS O2 CAPACITY 12.5 mL/dL (16-24); ARTERIAL BLOOD GAS O2 CONTENT 12.6 ML/dL (15-23); ARTERIAL BLOOD GAS O2 SAT 100.4 % (95-98); ARTERIAL BLOOD GAS PCO2 55 mm/Hg (35-45); ARTERIAL BLOOD GAS PH 7.48 (7.35-7.45); ARTERIAL BLOOD GAS PO2 119 mm/Hg (80-100); ARTERIAL BLOOD GAS TCO2 42.7 mmol/L (22-28)
[2018-02-18] MEDS: Cholecalciferol 1,000 INTLU TAB PO SCH (09:49)
[2018-02-18] MEDS: AVODART 0.5 MG PO SCH (09:49)
[2018-02-18] MEDS: Digoxin 125 mcg (0.125 mg) Tab PO SCH (09:50)
[2018-02-18] MEDS: Pantoprazole 40 mg EC Tab PO SCH (09:51)
--- NOTE | 2018-02-18 12:10 | CP.PCM.PN ---
Subjective - Date & Time of Evaluation Date of Evaluation: 02/18/18 Time of Evaluation: 12:10 - Subjective Subjective: F/U Respiratory Failure. no AD , N/C , Patient smiling , saying " I want to go home " Objective - Vital Signs/Intake and Output Vital Signs (last 24 hours): Temp Pulse Resp BP Pulse Ox 97.8 F 66 18 161/72 H 100 02/18/18 12:01 02/18/18 12:01 02/18/18 12:01 02/18/18 12:01 02/18/18 12:01 Intake and Output: 02/18/18 02/18/18 06:59 18:59 Output Total 1 Balance -1 - Medications Medications: Current Medications Cholecalciferol (Vitamin D) 5,000 intlu PO DAILY [facility] Last Admin: 02/18/18 09:49 Dose: 5,000 intlu Digoxin (Digoxin) 0.125 mg PO QOTHERDAY [facility] Last Admin: 02/18/18 09:50 Dose: 0.125 mg Diltiazem HCl (Cardizem) 60 mg PO Q6 [facility] Last Admin: 02/18/18 09:51 Dose: 60 mg Furosemide (Lasix) 40 mg IV DAILY [facility] Last Admin: 02/18/18 09:50 Dose: 40 mg Home Med (Patient's Own Medication) 1 unit PO DAILY [facility] Last Admin: 02/18/18 09:49 Dose: 1 unit Lamotrigine (Lamictal) 100 mg PO Q12 [facility] Last Admin: 02/18/18 09:50 Dose: 100 mg Metoprolol Tartrate (Lopressor) 25 mg PO Q12 [facility] Last Admin: 02/18/18 09:50 Dose: 25 mg Pantoprazole Sodium (Protonix Ec Tab) 40 mg PO DAILY [facility] Last Admin: 02/18/18 09:51 Dose: 40 mg - Labs Labs: 02/15/18 07:10 02/15/18 07:10 PT 15.4 Seconds (9.8-13.1) H 01/05/18 05:30 INR 1.4 (0.9-1.2) H 01/05/18 05:30 APTT 27.6 Seconds (25.6-37.1) 01/05/18 05:30 - Constitutional Appears: Chronically Ill - Head Exam Head Exam: NORMAL INSPECTION - Eye Exam Eye Exam: PERRL - ENT Exam ENT Exam: Normal Exam - Neck Exam Neck Exam: Normal Inspection - Respiratory Exam Respiratory Exam: Decreased Breath Sounds (at bases) - Cardiovascular Exam Cardiovascular Exam: REGULAR RHYTHM Additional comments: PPM - GI/Abdominal Exam GI & Abdominal Exam: Soft, Normal Bowel Sounds - Extremities Exam Extremities Exam: Normal Inspection - Back Exam Additional comments: Sacral ulcer stage II upper back and sacral area, healed. - Neurological Exam Neurological Exam: Awake Additional comments: No focal motor/sensory deficit, generalized weakness. - Psychiatric Exam Psychiatric exam: Anxious - Skin Skin Exam: Warm Assessment and Plan (1) Acute respiratory failure with hypoxia Status: Chronic (2) Encephalopathy Status: Chronic (3) Diastolic CHF, acute on chronic Status: Chronic (4) Hx of seizure disorder Status: Chronic (5) A-fib Status: Chronic (6) CANDELARIA (acute kidney injury) Status: Resolved (7) Anemia Status: Resolved (8) Aortic valve vegetation Status: Resolved (9) SUSAN (obstructive sleep apnea) Status: Chronic (10) Pulmonary hypertension Status: Chronic (11) Clostridium difficile infection Status: Resolved (12) Hypertension Status: Chronic (13) Abdominal pain Status: Resolved (14) UTI (urinary tract infection) Status: Resolved - Assessment and Plan (Free Text) Plan: continue Cardizem, Lopressor , Digoxin , Lasix , Lamictal , awaiting CPAP supplies for testing Patient's CPAP overnight
--- NOTE | 2018-02-18 18:09 | CP.PCM.PN ---
Subjective - Date & Time of Evaluation Date of Evaluation: 02/18/18 Time of Evaluation: 18:08 - Subjective Subjective: stable Objective - Vital Signs/Intake and Output Vital Signs (last 24 hours): Temp Pulse Resp BP Pulse Ox 97.5 F L 72 18 131/67 98 02/18/18 16:21 02/18/18 16:21 02/18/18 16:21 02/18/18 16:21 02/18/18 16:21 Intake and Output: 02/18/18 02/18/18 06:59 18:59 Output Total 1 Balance -1 - Medications Medications: Current Medications Cholecalciferol (Vitamin D) 5,000 intlu PO DAILY [facility] Last Admin: 02/18/18 09:49 Dose: 5,000 intlu Digoxin (Digoxin) 0.125 mg PO QOTHERDAY [facility] Last Admin: 02/18/18 09:50 Dose: 0.125 mg Diltiazem HCl (Cardizem) 60 mg PO Q6 [facility] Last Admin: 02/18/18 16:09 Dose: 60 mg Furosemide (Lasix) 40 mg IV DAILY [facility] Last Admin: 02/18/18 09:50 Dose: 40 mg Home Med (Patient's Own Medication) 1 unit PO DAILY [facility] Last Admin: 02/18/18 09:49 Dose: 1 unit Lamotrigine (Lamictal) 100 mg PO Q12 [facility] Last Admin: 02/18/18 09:50 Dose: 100 mg Metoprolol Tartrate (Lopressor) 25 mg PO Q12 [facility] Last Admin: 02/18/18 09:50 Dose: 25 mg Pantoprazole Sodium (Protonix Ec Tab) 40 mg PO DAILY [facility] Last Admin: 02/18/18 09:51 Dose: 40 mg - Labs Labs: 02/15/18 07:10 02/15/18 07:10 PT 15.4 Seconds (9.8-13.1) H 01/05/18 05:30 INR 1.4 (0.9-1.2) H 01/05/18 05:30 APTT 27.6 Seconds (25.6-37.1) 01/05/18 05:30 - Constitutional Appears: Well, Cachectic, Chronically Ill - Head Exam Head Exam: ATRAUMATIC, NORMAL INSPECTION, NORMOCEPHALIC - Eye Exam Eye Exam: EOMI, Normal appearance, PERRL Pupil Exam: NORMAL ACCOMODATION, PERRL - ENT Exam ENT Exam: Mucous Membranes Moist, Normal Exam - Neck Exam Neck Exam: Full ROM, Normal Inspection. absent: Lymphadenopathy - Respiratory Exam Respiratory Exam: Clear to Ausculation Bilateral, NORMAL BREATHING PATTERN - Cardiovascular Exam Cardiovascular Exam: Irregular Rhythm, +S1, +S2, Murmur - GI/Abdominal Exam GI & Abdominal Exam: Soft, Normal Bowel Sounds. absent: Tenderness - Extremities Exam Extremities Exam: Full ROM, Normal Capillary Refill, Normal Inspection. absent : Joint Swelling, Pedal Edema - Back Exam Back Exam: NORMAL INSPECTION - Neurological Exam Neurological Exam: Alert, Awake, CN II-XII Intact, Oriented x3 - Psychiatric Exam Psychiatric exam: Normal Affect, Normal Mood - Skin Skin Exam: Dry, Intact, Normal Color, Warm Assessment and Plan (1) A-fib Status: Chronic (2) Acute on chronic diastolic (congestive) heart failure Status: Chronic (3) Acute respiratory failure with hypoxia Status: Chronic (4) Altered mental status Status: Acute (5) HTN (hypertension) Status: Chronic (6) Seizure disorder Status: Chronic (7) CANDELARIA (acute kidney injury) Status: Resolved (8) Encephalopathy Status: Chronic (9) Hypothermia Status: Acute (10) Pleural effusion, bilateral Status: Resolved (11) Supratherapeutic international normalized ratio (INR) Status: Acute (12) Acute decompensated heart failure Status: Acute (13) Atrial fibrillation with RVR Status: Acute
--- NOTE | 2018-02-19 10:03 | CP.PCM.PN ---
Subjective - Date & Time of Evaluation Date of Evaluation: 02/19/18 Time of Evaluation: 10:02 - Subjective Subjective: stable Objective - Vital Signs/Intake and Output Vital Signs (last 24 hours): Temp Pulse Resp BP Pulse Ox 97.6 F 76 20 128/62 100 02/19/18 08:00 02/19/18 08:00 02/19/18 08:00 02/19/18 08:00 02/19/18 08:00 - Medications Medications: Current Medications Cholecalciferol (Vitamin D) 5,000 intlu PO DAILY [facility] Last Admin: 02/18/18 09:49 Dose: 5,000 intlu Digoxin (Digoxin) 0.125 mg PO QOTHERDAY [facility] Last Admin: 02/18/18 09:50 Dose: 0.125 mg Diltiazem HCl (Cardizem) 60 mg PO Q6 [facility] Last Admin: 02/19/18 04:49 Dose: 60 mg Furosemide (Lasix) 40 mg IV DAILY [facility] Last Admin: 02/18/18 09:50 Dose: 40 mg Home Med (Patient's Own Medication) 1 unit PO DAILY [facility] Last Admin: 02/18/18 09:49 Dose: 1 unit Lamotrigine (Lamictal) 100 mg PO Q12 [facility] Last Admin: 02/18/18 21:10 Dose: 100 mg Metoprolol Tartrate (Lopressor) 25 mg PO Q12 [facility] Last Admin: 02/18/18 21:10 Dose: 25 mg Pantoprazole Sodium (Protonix Ec Tab) 40 mg PO DAILY [facility] Last Admin: 02/18/18 09:51 Dose: 40 mg - Labs Labs: 02/15/18 07:10 02/15/18 07:10 PT 15.4 Seconds (9.8-13.1) H 01/05/18 05:30 INR 1.4 (0.9-1.2) H 01/05/18 05:30 APTT 27.6 Seconds (25.6-37.1) 01/05/18 05:30 - Constitutional Appears: Well - Head Exam Head Exam: ATRAUMATIC, NORMAL INSPECTION, NORMOCEPHALIC - Eye Exam Eye Exam: EOMI, Normal appearance, PERRL Pupil Exam: NORMAL ACCOMODATION, PERRL - ENT Exam ENT Exam: Mucous Membranes Moist, Normal Exam - Neck Exam Neck Exam: Full ROM, Normal Inspection. absent: Lymphadenopathy - Respiratory Exam Respiratory Exam: Clear to Ausculation Bilateral, NORMAL BREATHING PATTERN - Cardiovascular Exam Cardiovascular Exam: Irregular Rhythm, +S1, +S2, Murmur - GI/Abdominal Exam GI & Abdominal Exam: Soft, Normal Bowel Sounds. absent: Tenderness - Extremities Exam Extremities Exam: Full ROM, Normal Capillary Refill, Normal Inspection. absent : Joint Swelling, Pedal Edema - Back Exam Back Exam: NORMAL INSPECTION - Neurological Exam Neurological Exam: Alert, Awake, CN II-XII Intact, Oriented x3 - Psychiatric Exam Psychiatric exam: Normal Affect, Normal Mood - Skin Skin Exam: Dry, Intact, Normal Color, Warm Assessment and Plan (1) A-fib Status: Chronic (2) Acute on chronic diastolic (congestive) heart failure Status: Chronic (3) Acute respiratory failure with hypoxia Status: Chronic (4) Altered mental status Status: Acute (5) HTN (hypertension) Status: Chronic (6) Seizure disorder Status: Chronic (7) CANDELARIA (acute kidney injury) Status: Resolved (8) Encephalopathy Status: Chronic (9) Hypothermia Status: Acute (10) Pleural effusion, bilateral Status: Resolved (11) Supratherapeutic international normalized ratio (INR) Status: Acute (12) Acute decompensated heart failure Status: Acute (13) Atrial fibrillation with RVR Status: Acute
[2018-02-19] MEDS: Pantoprazole 40 mg EC Tab PO SCH (10:30)
[2018-02-19] MEDS: AVODART 0.5 MG PO SCH (10:30)
[2018-02-19] MEDS: Cholecalciferol 1,000 INTLU TAB PO SCH (10:30)
--- NOTE | 2018-02-19 14:22 | CP.PCM.PN ---
Subjective - Date & Time of Evaluation Date of Evaluation: 02/19/18 Time of Evaluation: 10:40 - Subjective Subjective: F/U respiratory failure. awake , no AD , smiling , answer questions , " I want to go home " Objective - Vital Signs/Intake and Output Vital Signs (last 24 hours): Temp Pulse Resp BP Pulse Ox 97.7 F 64 20 127/69 100 02/19/18 12:10 02/19/18 12:10 02/19/18 12:10 02/19/18 12:10 02/19/18 12:10 - Medications Medications: Current Medications Cholecalciferol (Vitamin D) 5,000 intlu PO DAILY [facility] Last Admin: 02/19/18 10:30 Dose: 5,000 intlu Digoxin (Digoxin) 0.125 mg PO QOTHERDAY [facility] Last Admin: 02/18/18 09:50 Dose: 0.125 mg Diltiazem HCl (Cardizem) 60 mg PO Q6 [facility] Last Admin: 02/19/18 10:29 Dose: 60 mg Furosemide (Lasix) 40 mg IV DAILY [facility] Last Admin: 02/19/18 10:29 Dose: 40 mg Home Med (Patient's Own Medication) 1 unit PO DAILY [facility] Last Admin: 02/19/18 10:30 Dose: 1 unit Lamotrigine (Lamictal) 100 mg PO Q12 [facility] Last Admin: 02/19/18 10:29 Dose: 100 mg Metoprolol Tartrate (Lopressor) 25 mg PO Q12 [facility] Last Admin: 02/19/18 10:30 Dose: 25 mg Pantoprazole Sodium (Protonix Ec Tab) 40 mg PO DAILY [facility] Last Admin: 02/19/18 10:30 Dose: 40 mg - Labs Labs: 02/15/18 07:10 02/15/18 07:10 PT 15.4 Seconds (9.8-13.1) H 01/05/18 05:30 INR 1.4 (0.9-1.2) H 01/05/18 05:30 APTT 27.6 Seconds (25.6-37.1) 01/05/18 05:30 - Constitutional Appears: Chronically Ill - Head Exam Head Exam: NORMAL INSPECTION - Eye Exam Eye Exam: PERRL - ENT Exam ENT Exam: Normal Exam - Neck Exam Neck Exam: Normal Inspection - Respiratory Exam Respiratory Exam: Decreased Breath Sounds (at bases) - Cardiovascular Exam Cardiovascular Exam: REGULAR RHYTHM Additional comments: PPM - GI/Abdominal Exam GI & Abdominal Exam: Soft, Normal Bowel Sounds - Extremities Exam Extremities Exam: Normal Inspection - Back Exam Additional comments: Pressure ulcer stage II healed in upper back and sacral area. - Neurological Exam Neurological Exam: Awake Additional comments: No focal motor/sensory deficit, generalized weakness. - Psychiatric Exam Psychiatric exam: Anxious - Skin Skin Exam: Warm Assessment and Plan (1) Acute respiratory failure with hypoxia Status: Chronic (2) Encephalopathy Status: Chronic (3) Diastolic CHF, acute on chronic Status: Chronic (4) Hx of seizure disorder Status: Chronic (5) A-fib Status: Chronic (6) CANDELARIA (acute kidney injury) Status: Resolved (7) Anemia Status: Resolved (8) Aortic valve vegetation Status: Resolved (9) SUSAN (obstructive sleep apnea) Status: Chronic (10) Pulmonary hypertension Status: Chronic (11) Clostridium difficile infection Status: Resolved (12) Hypertension Status: Chronic (13) Abdominal pain Status: Resolved (14) UTI (urinary tract infection) Status: Resolved - Assessment and Plan (Free Text) Plan: continue Cardizem , Lopressor , Digoxin , Lamictal ,vLasix , awaiting C PAP suppies for testing Patient's CPAP
[2018-02-20] MEDS: Digoxin 125 mcg (0.125 mg) Tab PO SCH (09:24)
[2018-02-20] MEDS: AVODART 0.5 MG PO SCH (09:24)
[2018-02-20] MEDS: Cholecalciferol 1,000 INTLU TAB PO SCH (09:25)
[2018-02-20] MEDS: Pantoprazole 40 mg EC Tab PO SCH (09:26)
[2018-02-20 11:03] LABS: ALB/GLOB RATIO 0.8 (1.0-2.1); ALBUMIN 3.4 g/dL (3.5-5.0); CALCIUM 9.3 mg/dL (8.4-10.2)
[2018-02-20 12:12] LABS: HEMOGLOBIN 9.2 g/dL (12.0-18.0); MEAN CELL VOLUME 85.4 fl (80.0-94.0); MEAN CORPUSCULAR HEMOGLOBIN 27.9 pg (27.0-31.0); MEAN CORPUSCULAR HGB CONC 32.7 g/dL (33.0-37.0); RBC 3.31 Mil/uL (4.40-5.90); RED CELL DISTRIBUTION WIDTH 16.9 % (11.5-14.5); WHITE BLOOD COUNT 8.8 K/uL (4.8-10.8)
--- NOTE | 2018-02-20 14:01 | CP.PCM.PN ---
Subjective - Date & Time of Evaluation Date of Evaluation: 02/20/18 Time of Evaluation: 14:00 - Subjective Subjective: feeling fine no complaints Objective - Vital Signs/Intake and Output Vital Signs (last 24 hours): Temp Pulse Resp BP Pulse Ox 97.4 F L 74 18 119/65 100 02/20/18 12:00 02/20/18 12:00 02/20/18 12:00 02/20/18 12:00 02/20/18 12:00 Intake and Output: 02/20/18 02/20/18 06:59 18:59 Intake Total 700 Balance 700 - Medications Medications: Current Medications Cholecalciferol (Vitamin D) 5,000 intlu PO DAILY [facility] Last Admin: 02/20/18 09:25 Dose: 5,000 intlu Digoxin (Digoxin) 0.125 mg PO QOTHERDAY [facility] Last Admin: 02/20/18 09:24 Dose: 0.125 mg Diltiazem HCl (Cardizem) 60 mg PO Q6 [facility] Last Admin: 02/20/18 09:25 Dose: 60 mg Furosemide (Lasix) 40 mg IV DAILY [facility] Last Admin: 02/20/18 09:26 Dose: 40 mg Home Med (Patient's Own Medication) 1 unit PO DAILY [facility] Last Admin: 02/20/18 09:24 Dose: 1 unit Lamotrigine (Lamictal) 100 mg PO Q12 [facility] Last Admin: 02/20/18 09:23 Dose: 100 mg Metoprolol Tartrate (Lopressor) 25 mg PO Q12 [facility] Last Admin: 02/20/18 09:24 Dose: 25 mg Pantoprazole Sodium (Protonix Ec Tab) 40 mg PO DAILY [facility] Last Admin: 02/20/18 09:26 Dose: 40 mg - Labs Labs: 02/20/18 12:05 02/20/18 10:15 PT 15.4 Seconds (9.8-13.1) H 01/05/18 05:30 INR 1.4 (0.9-1.2) H 01/05/18 05:30 APTT 27.6 Seconds (25.6-37.1) 01/05/18 05:30 - Constitutional Appears: Well - Head Exam Head Exam: ATRAUMATIC, NORMAL INSPECTION, NORMOCEPHALIC - Eye Exam Eye Exam: EOMI, Normal appearance, PERRL Pupil Exam: NORMAL ACCOMODATION, PERRL - ENT Exam ENT Exam: Mucous Membranes Moist, Normal Exam - Neck Exam Neck Exam: Full ROM, Normal Inspection. absent: Lymphadenopathy - Respiratory Exam Respiratory Exam: Clear to Ausculation Bilateral, NORMAL BREATHING PATTERN - Cardiovascular Exam Cardiovascular Exam: Irregular Rhythm, +S1, +S2, Murmur - GI/Abdominal Exam GI & Abdominal Exam: Soft, Normal Bowel Sounds. absent: Tenderness - Extremities Exam Extremities Exam: Full ROM, Normal Capillary Refill, Normal Inspection. absent : Joint Swelling, Pedal Edema - Back Exam Back Exam: NORMAL INSPECTION - Neurological Exam Neurological Exam: Alert, Awake, CN II-XII Intact, Normal Gait, Oriented x3 - Psychiatric Exam Psychiatric exam: Normal Affect, Normal Mood - Skin Skin Exam: Dry, Intact, Normal Color, Warm Assessment and Plan (1) A-fib Status: Chronic (2) Acute on chronic diastolic (congestive) heart failure Status: Chronic (3) Acute respiratory failure with hypoxia Status: Chronic (4) Altered mental status Status: Acute (5) HTN (hypertension) Status: Chronic (6) Seizure disorder Status: Chronic (7) CANDELARIA (acute kidney injury) Status: Resolved (8) Encephalopathy Status: Chronic (9) Hypothermia Status: Acute (10) Pleural effusion, bilateral Status: Resolved (11) Supratherapeutic international normalized ratio (INR) Status: Acute (12) Acute decompensated heart failure Status: Acute (13) Atrial fibrillation with RVR Status: Acute
--- NOTE | 2018-02-20 14:46 | CP.PCM.PN ---
Subjective - Date & Time of Evaluation Date of Evaluation: 02/20/18 Time of Evaluation: 11:20 - Subjective Subjective: F/U Respiratory Failure. awake , smiling , follows commands , " I want to go home" Objective - Vital Signs/Intake and Output Vital Signs (last 24 hours): Temp Pulse Resp BP Pulse Ox 97.4 F L 74 18 119/65 100 02/20/18 12:00 02/20/18 12:00 02/20/18 12:00 02/20/18 12:00 02/20/18 12:00 Intake and Output: 02/20/18 02/20/18 06:59 18:59 Intake Total 700 Balance 700 - Medications Medications: Current Medications Cholecalciferol (Vitamin D) 5,000 intlu PO DAILY [facility] Last Admin: 02/20/18 09:25 Dose: 5,000 intlu Digoxin (Digoxin) 0.125 mg PO QOTHERDAY [facility] Last Admin: 02/20/18 09:24 Dose: 0.125 mg Diltiazem HCl (Cardizem) 60 mg PO Q6 [facility] Last Admin: 02/20/18 09:25 Dose: 60 mg Furosemide (Lasix) 40 mg IV DAILY [facility] Last Admin: 02/20/18 09:26 Dose: 40 mg Home Med (Patient's Own Medication) 1 unit PO DAILY [facility] Last Admin: 02/20/18 09:24 Dose: 1 unit Lamotrigine (Lamictal) 100 mg PO Q12 [facility] Last Admin: 02/20/18 09:23 Dose: 100 mg Metoprolol Tartrate (Lopressor) 25 mg PO Q12 [facility] Last Admin: 02/20/18 09:24 Dose: 25 mg Pantoprazole Sodium (Protonix Ec Tab) 40 mg PO DAILY [facility] Last Admin: 02/20/18 09:26 Dose: 40 mg - Labs Labs: 02/20/18 12:05 02/20/18 10:15 PT 15.4 Seconds (9.8-13.1) H 01/05/18 05:30 INR 1.4 (0.9-1.2) H 01/05/18 05:30 APTT 27.6 Seconds (25.6-37.1) 01/05/18 05:30 - Constitutional Appears: Chronically Ill - Head Exam Head Exam: NORMAL INSPECTION - Eye Exam Eye Exam: PERRL - ENT Exam ENT Exam: Normal Exam - Neck Exam Neck Exam: Normal Inspection - Respiratory Exam Respiratory Exam: Decreased Breath Sounds (at bases) - Cardiovascular Exam Cardiovascular Exam: REGULAR RHYTHM Additional comments: PPM - GI/Abdominal Exam GI & Abdominal Exam: Soft, Normal Bowel Sounds - Extremities Exam Extremities Exam: Normal Inspection - Back Exam Additional comments: Upper back and sacral area with ulcer stage II, healed. - Neurological Exam Neurological Exam: Awake Additional comments: No focal motor/sensory deficit. - Psychiatric Exam Psychiatric exam: Anxious - Skin Skin Exam: Warm Assessment and Plan (1) Acute respiratory failure with hypoxia Status: Chronic (2) Encephalopathy Status: Chronic (3) Diastolic CHF, acute on chronic Status: Chronic (4) Hx of seizure disorder Status: Chronic (5) A-fib Status: Chronic (6) CANDELARIA (acute kidney injury) Status: Resolved (7) Anemia Status: Resolved (8) Aortic valve vegetation Status: Resolved (9) SUSAN (obstructive sleep apnea) Status: Chronic (10) Pulmonary hypertension Status: Chronic (11) Clostridium difficile infection Status: Resolved (12) Hypertension Status: Chronic (13) Abdominal pain Status: Resolved (14) UTI (urinary tract infection) Status: Resolved - Assessment and Plan (Free Text) Plan: CPAP supplies available , trial of Patient home CPAP tonight , ABG am to monitor PO2 and PCO2 , continue rest of treatment
[2018-02-21 06:08] LABS: MEAN CORPUSCULAR HEMOGLOBIN 27.3 pg (27.0-31.0); MEAN CORPUSCULAR HGB CONC 31.7 g/dL (33.0-37.0); RBC 3.28 Mil/uL (4.40-5.90); RED CELL DISTRIBUTION WIDTH 17.2 % (11.5-14.5); WHITE BLOOD COUNT 11.3 K/uL (4.8-10.8)
[2018-02-21 07:15] LABS: ABG ALLEN TEST YES; ARTERIAL BLOOD GAS HCO3 36.2 mmol/L (21-28); ARTERIAL BLOOD GAS HEMOGLOBIN 9.1 g/dL (11.7-17.4); ARTERIAL BLOOD GAS O2 CAPACITY 12.6 mL/dL (16-24); ARTERIAL BLOOD GAS O2 CONTENT 12.5 ML/dL (15-23); ARTERIAL BLOOD GAS O2 SAT 99.3 % (95-98); ARTERIAL BLOOD GAS PCO2 49 mm/Hg (35-45); ARTERIAL BLOOD GAS PH 7.51 (7.35-7.45); ARTERIAL BLOOD GAS PO2 74 mm/Hg (80-100); ARTERIAL BLOOD GAS TCO2 40.6 mmol/L (22-28)
[2018-02-21 07:18] LABS: ARTERIAL BLOOD GAS FIO2 30 %
[2018-02-21] MEDS: Cholecalciferol 1,000 INTLU TAB PO SCH (09:39)
[2018-02-21] MEDS: Pantoprazole 40 mg EC Tab PO SCH (09:40)
[2018-02-21] MEDS: AVODART 0.5 MG PO SCH (09:40)
--- NOTE | 2018-02-21 14:44 | CP.PCM.PCO ---
Assessment & Plan - Assessment and Plan (Free Text) Assessment: Received a call this am from Dr. Escamilla, patient for potential discharge this afternoon Reviewed blood gas, labs with MD. Meds reconciled with Dr Escamilla and Dr Castro. Spoke to Clemencia in [place], aware to give patient meds (brand name only) Cleared by cardiology for DC. discussed with INDR[facility] Madrigal for disposition.
--- NOTE | 2018-02-21 17:00 | CP.PCM.PN ---
Subjective - Date & Time of Evaluation Date of Evaluation: 02/21/18 Time of Evaluation: 13:40 - Subjective Subjective: awake , able to talk , follows commands Objective - Vital Signs/Intake and Output Vital Signs (last 24 hours): Temp Pulse Resp BP Pulse Ox 97.5 F L 79 20 126/63 100 02/21/18 16:07 02/21/18 16:32 02/21/18 16:07 02/21/18 16:32 02/21/18 16:07 - Medications Medications: Current Medications Apixaban (Eliquis) 2.5 mg PO BID [facility] PRN Reason: Protocol Last Admin: 02/21/18 16:33 Dose: 2.5 mg Cholecalciferol (Vitamin D) 5,000 intlu PO DAILY [facility] Last Admin: 02/21/18 09:39 Dose: 5,000 intlu Digoxin (Digoxin) 0.125 mg PO QOTHERDAY [facility] Last Admin: 02/20/18 09:24 Dose: 0.125 mg Diltiazem HCl (Cardizem) 60 mg PO Q6 [facility] Last Admin: 02/21/18 16:32 Dose: 60 mg Furosemide (Lasix) 40 mg IV DAILY [facility] Last Admin: 02/21/18 09:38 Dose: 40 mg Home Med (Patient's Own Medication) 1 unit PO DAILY [facility] Last Admin: 02/21/18 09:40 Dose: 1 unit Lamotrigine (Lamictal) 100 mg PO Q12 [facility] Last Admin: 02/21/18 09:38 Dose: 100 mg Metoprolol Tartrate (Lopressor) 25 mg PO Q12 [facility] Last Admin: 02/21/18 09:39 Dose: 25 mg Pantoprazole Sodium (Protonix Ec Tab) 40 mg PO DAILY [facility] Last Admin: 02/21/18 09:40 Dose: 40 mg - Labs Labs: 02/21/18 05:56 02/21/18 05:56 PT 15.4 Seconds (9.8-13.1) H 01/05/18 05:30 INR 1.4 (0.9-1.2) H 01/05/18 05:30 APTT 27.6 Seconds (25.6-37.1) 01/05/18 05:30 - Constitutional Appears: Chronically Ill - Head Exam Head Exam: NORMAL INSPECTION - Eye Exam Eye Exam: PERRL - ENT Exam ENT Exam: Normal Exam - Neck Exam Neck Exam: Normal Inspection - Respiratory Exam Respiratory Exam: Decreased Breath Sounds (at bases) - Cardiovascular Exam Cardiovascular Exam: REGULAR RHYTHM Additional comments: PPM - GI/Abdominal Exam GI & Abdominal Exam: Soft, Normal Bowel Sounds - Extremities Exam Extremities Exam: Normal Inspection - Back Exam Additional comments: Upper back and sacral area with ulcer stage II, healed - Neurological Exam Neurological Exam: Awake Additional comments: No focal motor/sensory deficit, generalized weakness. - Psychiatric Exam Psychiatric exam: Anxious - Skin Skin Exam: Warm Assessment and Plan (1) Acute respiratory failure with hypoxia Status: Chronic (2) Encephalopathy Status: Chronic (3) Diastolic CHF, acute on chronic Status: Chronic (4) Hx of seizure disorder Status: Chronic (5) A-fib Status: Chronic (6) CANDELARIA (acute kidney injury) Status: Resolved (7) Anemia Status: Resolved (8) Aortic valve vegetation Status: Resolved (9) SUSAN (obstructive sleep apnea) Status: Chronic (10) Pulmonary hypertension Status: Chronic (11) Clostridium difficile infection Status: Resolved (12) Hypertension Status: Chronic (13) Abdominal pain Status: Resolved (14) UTI (urinary tract infection) Status: Resolved - Assessment and Plan (Free Text) Plan: ABG in am with Patient' CPAP were good , CPAP Patient's own machine not working now , will cancel dixscharge , get in touch with supply co. , continue rest of treatment
[2018-02-22] MEDS: AVODART 0.5 MG PO SCH (10:20)
[2018-02-22] MEDS: Cholecalciferol 1,000 INTLU TAB PO SCH (10:20)
[2018-02-22] MEDS: Digoxin 125 mcg (0.125 mg) Tab PO SCH (10:21)
[2018-02-22] MEDS: Pantoprazole 40 mg EC Tab PO SCH (10:22)
--- NOTE | 2018-02-22 13:47 | CP.PCM.PN ---
Subjective - Date & Time of Evaluation Date of Evaluation: 02/22/18 - Subjective Subjective: F/U Respiratory failure. Alert , no A/D , smiling , he is asking when He is going home Objective - Vital Signs/Intake and Output Vital Signs (last 24 hours): Temp Pulse Resp BP Pulse Ox 97.6 F 68 20 124/52 L 98 02/22/18 12:53 02/22/18 12:53 02/22/18 12:53 02/22/18 12:53 02/22/18 12:53 - Medications Medications: Current Medications Apixaban (Eliquis) 2.5 mg PO BID [facility] PRN Reason: Protocol Last Admin: 02/22/18 10:21 Dose: 2.5 mg Cholecalciferol (Vitamin D) 5,000 intlu PO DAILY [facility] Last Admin: 02/22/18 10:20 Dose: 5,000 intlu Digoxin (Digoxin) 0.125 mg PO QOTHERDAY [facility] Last Admin: 02/22/18 10:21 Dose: 0.125 mg Diltiazem HCl (Cardizem) 60 mg PO Q6 [facility] Last Admin: 02/22/18 10:19 Dose: 60 mg Furosemide (Lasix) 40 mg IV DAILY [facility] Last Admin: 02/22/18 10:20 Dose: 40 mg Lamotrigine (Lamictal) 100 mg PO Q12 [facility] Last Admin: 02/22/18 10:19 Dose: 100 mg Metoprolol Tartrate (Lopressor) 25 mg PO Q12 [facility] Last Admin: 02/22/18 10:20 Dose: 25 mg Pantoprazole Sodium (Protonix Ec Tab) 40 mg PO DAILY [facility] Last Admin: 02/22/18 10:22 Dose: 40 mg - Labs Labs: 02/21/18 05:56 02/21/18 05:56 PT 15.4 Seconds (9.8-13.1) H 01/05/18 05:30 INR 1.4 (0.9-1.2) H 01/05/18 05:30 APTT 27.6 Seconds (25.6-37.1) 01/05/18 05:30 - Constitutional Appears: No Acute Distress, Chronically Ill - Head Exam Head Exam: NORMAL INSPECTION - Eye Exam Eye Exam: PERRL - ENT Exam ENT Exam: Normal Exam - Neck Exam Neck Exam: Normal Inspection - Respiratory Exam Respiratory Exam: Decreased Breath Sounds (at bases) - Cardiovascular Exam Cardiovascular Exam: REGULAR RHYTHM Additional comments: PPM - GI/Abdominal Exam GI & Abdominal Exam: Soft, Normal Bowel Sounds - Extremities Exam Extremities Exam: Normal Inspection - Back Exam Additional comments: Upper back and sacral wound healed. - Neurological Exam Neurological Exam: Awake Additional comments: No focal motor/sensory deficit. - Psychiatric Exam Psychiatric exam: Anxious - Skin Skin Exam: Warm Assessment and Plan (1) Acute respiratory failure with hypoxia Status: Chronic (2) Encephalopathy Status: Chronic (3) Diastolic CHF, acute on chronic Status: Chronic (4) Hx of seizure disorder Status: Chronic (5) A-fib Status: Chronic (6) CANDELARIA (acute kidney injury) Status: Resolved (7) Anemia Status: Resolved (8) Aortic valve vegetation Status: Resolved (9) SUSAN (obstructive sleep apnea) Status: Acute (10) Pulmonary hypertension Status: Chronic (11) Clostridium difficile infection Status: Resolved (12) Hypertension Status: Chronic (13) Abdominal pain Status: Resolved (14) UTI (urinary tract infection) Status: Resolved - Assessment and Plan (Free Text) Plan: on Hospital CPAP 6cm ABG PCo2 49 , PO2 74 , PH 7.51 . , Patient CPAP is not working , Social Service to have f/u with Medical Supply , continue Cardizem , Lopressor , Digoxin , Eliquis , Lasix , Lamictal.
--- NOTE | 2018-02-22 23:54 | CP.PCM.PN ---
Subjective - Date & Time of Evaluation Date of Evaluation: 02/21/18 Time of Evaluation: 16:00 - Subjective Subjective: feeling fine Objective - Vital Signs/Intake and Output Vital Signs (last 24 hours): Temp Pulse Resp BP Pulse Ox 97.4 F L 64 20 131/60 100 02/22/18 19:38 02/22/18 21:26 02/22/18 19:38 02/22/18 21:26 02/22/18 19:38 - Medications Medications: Current Medications Apixaban (Eliquis) 2.5 mg PO BID [facility] PRN Reason: Protocol Last Admin: 02/22/18 17:06 Dose: 2.5 mg Cholecalciferol (Vitamin D) 5,000 intlu PO DAILY [facility] Last Admin: 02/22/18 10:20 Dose: 5,000 intlu Digoxin (Digoxin) 0.125 mg PO QOTHERDAY [facility] Last Admin: 02/22/18 10:21 Dose: 0.125 mg Diltiazem HCl (Cardizem) 60 mg PO Q6 [facility] Last Admin: 02/22/18 21:25 Dose: 60 mg Furosemide (Lasix) 40 mg IV DAILY [facility] Last Admin: 02/22/18 10:20 Dose: 40 mg Lamotrigine (Lamictal) 100 mg PO Q12 [facility] Last Admin: 02/22/18 21:25 Dose: 100 mg Metoprolol Tartrate (Lopressor) 25 mg PO Q12 [facility] Last Admin: 02/22/18 21:26 Dose: 25 mg Pantoprazole Sodium (Protonix Ec Tab) 40 mg PO DAILY [facility] Last Admin: 02/22/18 10:22 Dose: 40 mg - Labs Labs: 02/21/18 05:56 02/21/18 05:56 PT 15.4 Seconds (9.8-13.1) H 01/05/18 05:30 INR 1.4 (0.9-1.2) H 01/05/18 05:30 APTT 27.6 Seconds (25.6-37.1) 01/05/18 05:30 - Constitutional Appears: Well - Head Exam Head Exam: ATRAUMATIC, NORMAL INSPECTION, NORMOCEPHALIC - Eye Exam Eye Exam: EOMI, Normal appearance, PERRL Pupil Exam: NORMAL ACCOMODATION, PERRL - ENT Exam ENT Exam: Mucous Membranes Moist, Normal Exam - Neck Exam Neck Exam: Full ROM, Normal Inspection. absent: Lymphadenopathy - Respiratory Exam Respiratory Exam: Clear to Ausculation Bilateral, NORMAL BREATHING PATTERN - Cardiovascular Exam Cardiovascular Exam: Irregular Rhythm, +S1, +S2, Murmur - GI/Abdominal Exam GI & Abdominal Exam: Soft, Normal Bowel Sounds. absent: Tenderness - Extremities Exam Extremities Exam: Full ROM, Normal Capillary Refill, Normal Inspection. absent : Joint Swelling, Pedal Edema - Back Exam Back Exam: NORMAL INSPECTION - Neurological Exam Neurological Exam: Alert, Awake, CN II-XII Intact, Oriented x3 - Psychiatric Exam Psychiatric exam: Normal Affect, Normal Mood - Skin Skin Exam: Dry, Intact, Normal Color, Warm Assessment and Plan (1) A-fib Status: Chronic (2) Acute on chronic diastolic (congestive) heart failure Status: Chronic (3) Acute respiratory failure with hypoxia Status: Chronic (4) Altered mental status Status: Acute (5) HTN (hypertension) Status: Chronic (6) Seizure disorder Status: Chronic (7) CANDELARIA (acute kidney injury) Status: Resolved (8) Encephalopathy Status: Chronic (9) Hypothermia Status: Acute (10) Pleural effusion, bilateral Status: Resolved (11) Supratherapeutic international normalized ratio (INR) Status: Acute (12) Acute decompensated heart failure Status: Acute (13) Atrial fibrillation with RVR Status: Acute
--- NOTE | 2018-02-22 23:56 | CP.PCM.PN ---
Subjective - Date & Time of Evaluation Date of Evaluation: 02/22/18 Time of Evaluation: 08:00 - Subjective Subjective: feeling fine Objective - Vital Signs/Intake and Output Vital Signs (last 24 hours): Temp Pulse Resp BP Pulse Ox 97.4 F L 64 20 131/60 100 02/22/18 19:38 02/22/18 21:26 02/22/18 19:38 02/22/18 21:26 02/22/18 19:38 - Medications Medications: Current Medications Apixaban (Eliquis) 2.5 mg PO BID [facility] PRN Reason: Protocol Last Admin: 02/22/18 17:06 Dose: 2.5 mg Cholecalciferol (Vitamin D) 5,000 intlu PO DAILY [facility] Last Admin: 02/22/18 10:20 Dose: 5,000 intlu Digoxin (Digoxin) 0.125 mg PO QOTHERDAY [facility] Last Admin: 02/22/18 10:21 Dose: 0.125 mg Diltiazem HCl (Cardizem) 60 mg PO Q6 [facility] Last Admin: 02/22/18 21:25 Dose: 60 mg Furosemide (Lasix) 40 mg IV DAILY [facility] Last Admin: 02/22/18 10:20 Dose: 40 mg Lamotrigine (Lamictal) 100 mg PO Q12 [facility] Last Admin: 02/22/18 21:25 Dose: 100 mg Metoprolol Tartrate (Lopressor) 25 mg PO Q12 [facility] Last Admin: 02/22/18 21:26 Dose: 25 mg Pantoprazole Sodium (Protonix Ec Tab) 40 mg PO DAILY [facility] Last Admin: 02/22/18 10:22 Dose: 40 mg - Labs Labs: 02/21/18 05:56 02/21/18 05:56 PT 15.4 Seconds (9.8-13.1) H 01/05/18 05:30 INR 1.4 (0.9-1.2) H 01/05/18 05:30 APTT 27.6 Seconds (25.6-37.1) 01/05/18 05:30 - Constitutional Appears: Well - Head Exam Head Exam: ATRAUMATIC, NORMAL INSPECTION, NORMOCEPHALIC - Eye Exam Eye Exam: EOMI, Normal appearance, PERRL Pupil Exam: NORMAL ACCOMODATION, PERRL - ENT Exam ENT Exam: Mucous Membranes Moist, Normal Exam - Neck Exam Neck Exam: Full ROM, Normal Inspection. absent: Lymphadenopathy - Respiratory Exam Respiratory Exam: Clear to Ausculation Bilateral, NORMAL BREATHING PATTERN - Cardiovascular Exam Cardiovascular Exam: Irregular Rhythm, +S1, +S2, Murmur - GI/Abdominal Exam GI & Abdominal Exam: Soft, Normal Bowel Sounds. absent: Tenderness - Extremities Exam Extremities Exam: Full ROM, Normal Capillary Refill, Normal Inspection. absent : Joint Swelling, Pedal Edema - Back Exam Back Exam: NORMAL INSPECTION - Neurological Exam Neurological Exam: Alert, Awake, CN II-XII Intact, Oriented x3 - Psychiatric Exam Psychiatric exam: Normal Affect, Normal Mood - Skin Skin Exam: Dry, Intact, Normal Color, Warm Assessment and Plan (1) A-fib Status: Chronic (2) Acute on chronic diastolic (congestive) heart failure Status: Chronic (3) Acute respiratory failure with hypoxia Status: Chronic (4) Altered mental status Status: Acute (5) HTN (hypertension) Status: Chronic (6) Seizure disorder Status: Chronic (7) CANDELARIA (acute kidney injury) Status: Resolved (8) Encephalopathy Status: Chronic (9) Hypothermia Status: Acute (10) Pleural effusion, bilateral Status: Resolved (11) Supratherapeutic international normalized ratio (INR) Status: Acute (12) Acute decompensated heart failure Status: Acute (13) Atrial fibrillation with RVR Status: Acute
[2018-02-23] MEDS: Cholecalciferol 1,000 INTLU TAB PO SCH (08:51)
[2018-02-23] MEDS: Pantoprazole 40 mg EC Tab PO SCH (08:51)
--- NOTE | 2018-02-23 18:33 | CP.PCM.PN ---
Subjective - Date & Time of Evaluation Date of Evaluation: 02/23/18 Time of Evaluation: 12:50 - Subjective Subjective: F/U Respiratory failure. awake, smiling , answer questions Objective - Vital Signs/Intake and Output Vital Signs (last 24 hours): Temp Pulse Resp BP Pulse Ox 97.3 F L 57 L 20 123/62 99 02/23/18 16:10 02/23/18 16:10 02/23/18 16:10 02/23/18 16:10 02/23/18 16:10 - Medications Medications: Current Medications Apixaban (Eliquis) 2.5 mg PO BID [facility] PRN Reason: Protocol Last Admin: 02/23/18 17:03 Dose: 2.5 mg Cholecalciferol (Vitamin D) 5,000 intlu PO DAILY [facility] Last Admin: 02/23/18 08:51 Dose: 5,000 intlu Digoxin (Digoxin) 0.125 mg PO QOTHERDAY [facility] Last Admin: 02/22/18 10:21 Dose: 0.125 mg Diltiazem HCl (Cardizem) 60 mg PO Q6 [facility] Last Admin: 02/23/18 17:03 Dose: 60 mg Furosemide (Lasix) 40 mg IV DAILY [facility] Last Admin: 02/23/18 08:50 Dose: 40 mg Home Med (Patient's Own Medication) 1 unit PO DAILY [facility] Lamotrigine (Lamictal) 100 mg PO Q12 [facility] Last Admin: 02/23/18 08:49 Dose: 100 mg Metoprolol Tartrate (Lopressor) 25 mg PO Q12 [facility] Last Admin: 02/23/18 08:50 Dose: 25 mg Pantoprazole Sodium (Protonix Ec Tab) 40 mg PO DAILY [facility] Last Admin: 02/23/18 08:51 Dose: 40 mg - Labs Labs: 02/21/18 05:56 02/21/18 05:56 PT 15.4 Seconds (9.8-13.1) H 01/05/18 05:30 INR 1.4 (0.9-1.2) H 01/05/18 05:30 APTT 27.6 Seconds (25.6-37.1) 01/05/18 05:30 - Constitutional Appears: No Acute Distress, Chronically Ill - Head Exam Head Exam: NORMAL INSPECTION - Eye Exam Eye Exam: PERRL - ENT Exam ENT Exam: Normal Exam - Neck Exam Neck Exam: Normal Inspection - Respiratory Exam Respiratory Exam: Decreased Breath Sounds (at bases) - Cardiovascular Exam Cardiovascular Exam: REGULAR RHYTHM Additional comments: PPM - GI/Abdominal Exam GI & Abdominal Exam: Soft, Normal Bowel Sounds - Extremities Exam Extremities Exam: Normal Inspection - Back Exam Additional comments: Upper back and sacral wound healed. - Neurological Exam Neurological Exam: Awake Additional comments: No focal motor/sensory deficit. - Psychiatric Exam Psychiatric exam: Anxious - Skin Skin Exam: Warm Assessment and Plan (1) Acute respiratory failure with hypoxia Status: Chronic (2) Encephalopathy Status: Chronic (3) Diastolic CHF, acute on chronic Status: Chronic (4) Hx of seizure disorder Status: Chronic (5) A-fib Status: Chronic (6) CANDELARIA (acute kidney injury) Status: Resolved (7) Anemia Status: Resolved (8) Aortic valve vegetation Status: Resolved (9) SUSAN (obstructive sleep apnea) Status: Acute (10) Pulmonary hypertension Status: Chronic (11) Clostridium difficile infection Status: Resolved (12) Hypertension Status: Chronic (13) Abdominal pain Status: Resolved (14) UTI (urinary tract infection) Status: Resolved - Assessment and Plan (Free Text) Plan: continue Cardizem , Lopressor , Digoxin , Lasix , Lamictal , Eliquis , Patient is using Hospital CPAP overnight
[2018-02-24] MEDS: Digoxin 125 mcg (0.125 mg) Tab PO SCH (08:58)
[2018-02-24] MEDS: AVODART 0.5 MG PO SCH (08:59)
[2018-02-24] MEDS: Cholecalciferol 1,000 INTLU TAB PO SCH (09:00)
[2018-02-24] MEDS: Pantoprazole 40 mg EC Tab PO SCH (09:00)
[2018-02-24 09:01] VITALS: PULSE 82
--- NOTE | 2018-02-24 14:18 | CP.PCM.PN ---
Subjective - Date & Time of Evaluation Date of Evaluation: 02/24/18 Time of Evaluation: 11:20 - Subjective Subjective: Respiratory failure. awake , no AD , Patient states He wants to go home , seated in a chair. Objective - Vital Signs/Intake and Output Vital Signs (last 24 hours): Temp Pulse Resp BP Pulse Ox 97.4 F L 64 18 123/64 97 02/24/18 13:00 02/24/18 13:00 02/24/18 13:00 02/24/18 13:00 02/24/18 13:00 Intake and Output: 02/24/18 02/24/18 06:59 18:59 Intake Total 100 300 Balance 100 300 - Medications Medications: Current Medications Apixaban (Eliquis) 2.5 mg PO BID [facility] PRN Reason: Protocol Last Admin: 02/24/18 08:58 Dose: 2.5 mg Cholecalciferol (Vitamin D) 5,000 intlu PO DAILY [facility] Last Admin: 02/24/18 09:00 Dose: 5,000 intlu Digoxin (Digoxin) 0.125 mg PO QOTHERDAY [facility] Last Admin: 02/24/18 08:58 Dose: 0.125 mg Diltiazem HCl (Cardizem) 60 mg PO Q6 [facility] Last Admin: 02/24/18 09:01 Dose: 60 mg Furosemide (Lasix) 40 mg IV DAILY [facility] Last Admin: 02/24/18 08:59 Dose: 40 mg Home Med (Patient's Own Medication) 1 unit PO DAILY [facility] Last Admin: 02/24/18 08:59 Dose: 1 unit Lamotrigine (Lamictal) 100 mg PO Q12 [facility] Last Admin: 02/24/18 08:58 Dose: 100 mg Metoprolol Tartrate (Lopressor) 25 mg PO Q12 [facility] Last Admin: 02/24/18 08:59 Dose: 25 mg Pantoprazole Sodium (Protonix Ec Tab) 40 mg PO DAILY [facility] Last Admin: 02/24/18 09:00 Dose: 40 mg - Labs Labs: 02/21/18 05:56 02/21/18 05:56 PT 15.4 Seconds (9.8-13.1) H 01/05/18 05:30 INR 1.4 (0.9-1.2) H 01/05/18 05:30 APTT 27.6 Seconds (25.6-37.1) 01/05/18 05:30 - Constitutional Appears: No Acute Distress, Chronically Ill - Head Exam Head Exam: NORMAL INSPECTION - Eye Exam Eye Exam: PERRL - ENT Exam ENT Exam: Normal Exam - Neck Exam Neck Exam: Normal Inspection - Respiratory Exam Respiratory Exam: Decreased Breath Sounds (at bases) - Cardiovascular Exam Cardiovascular Exam: REGULAR RHYTHM Additional comments: PPM - GI/Abdominal Exam GI & Abdominal Exam: Soft, Normal Bowel Sounds - Extremities Exam Extremities Exam: Normal Inspection - Back Exam Additional comments: Upper back and sacral wound healed - Neurological Exam Neurological Exam: Awake Additional comments: no focal motor/sensory deficit, generalized weakness - Psychiatric Exam Psychiatric exam: Anxious - Skin Skin Exam: Warm Assessment and Plan (1) Acute respiratory failure with hypoxia Status: Chronic (2) Encephalopathy Status: Chronic (3) Diastolic CHF, acute on chronic Status: Chronic (4) Hx of seizure disorder Status: Chronic (5) A-fib Status: Chronic (6) CANDELARIA (acute kidney injury) Status: Resolved (7) Anemia Status: Resolved (8) Aortic valve vegetation Status: Resolved (9) SUSAN (obstructive sleep apnea) Status: Acute (10) Pulmonary hypertension Status: Chronic (11) Clostridium difficile infection Status: Resolved (12) Hypertension Status: Chronic (13) Abdominal pain Status: Resolved (14) UTI (urinary tract infection) Status: Resolved - Assessment and Plan (Free Text) Plan: continue current treatment and PT, Patient CPAP is not working , Social Service in contact with [employer] , Patient CPAP need to be functional or get a new one
--- NOTE | 2018-02-24 22:47 | CP.PCM.PN ---
Subjective - Date & Time of Evaluation Date of Evaluation: 02/24/18 Time of Evaluation: 09:40 - Subjective Subjective: stable Objective - Vital Signs/Intake and Output Vital Signs (last 24 hours): Temp Pulse Resp BP Pulse Ox 98.6 F 68 20 148/73 99 02/24/18 19:42 02/24/18 21:15 02/24/18 19:42 02/24/18 21:15 02/24/18 19:42 Intake and Output: 02/24/18 02/25/18 18:59 06:59 Intake Total 300 Balance 300 - Medications Medications: Current Medications Apixaban (Eliquis) 2.5 mg PO BID [facility] PRN Reason: Protocol Last Admin: 02/24/18 16:30 Dose: 2.5 mg Cholecalciferol (Vitamin D) 5,000 intlu PO DAILY [facility] Last Admin: 02/24/18 09:00 Dose: 5,000 intlu Digoxin (Digoxin) 0.125 mg PO QOTHERDAY [facility] Last Admin: 02/24/18 08:58 Dose: 0.125 mg Diltiazem HCl (Cardizem) 60 mg PO Q6 [facility] Last Admin: 02/24/18 21:15 Dose: 60 mg Furosemide (Lasix) 40 mg IV DAILY [facility] Last Admin: 02/24/18 08:59 Dose: 40 mg Home Med (Patient's Own Medication) 1 unit PO DAILY [facility] Last Admin: 02/24/18 08:59 Dose: 1 unit Lamotrigine (Lamictal) 100 mg PO Q12 [facility] Last Admin: 02/24/18 21:15 Dose: 100 mg Metoprolol Tartrate (Lopressor) 25 mg PO Q12 [facility] Last Admin: 02/24/18 21:15 Dose: 25 mg Pantoprazole Sodium (Protonix Ec Tab) 40 mg PO DAILY [facility] Last Admin: 02/24/18 09:00 Dose: 40 mg - Labs Labs: 02/21/18 05:56 02/21/18 05:56 PT 15.4 Seconds (9.8-13.1) H 01/05/18 05:30 INR 1.4 (0.9-1.2) H 01/05/18 05:30 APTT 27.6 Seconds (25.6-37.1) 01/05/18 05:30 - Constitutional Appears: Well - Head Exam Head Exam: ATRAUMATIC, NORMAL INSPECTION, NORMOCEPHALIC - Eye Exam Eye Exam: EOMI, Normal appearance, PERRL Pupil Exam: NORMAL ACCOMODATION, PERRL - ENT Exam ENT Exam: Mucous Membranes Moist, Normal Exam - Neck Exam Neck Exam: Full ROM, Normal Inspection. absent: Lymphadenopathy - Respiratory Exam Respiratory Exam: Clear to Ausculation Bilateral, NORMAL BREATHING PATTERN - Cardiovascular Exam Cardiovascular Exam: Irregular Rhythm, +S1, +S2, Murmur - GI/Abdominal Exam GI & Abdominal Exam: Soft, Normal Bowel Sounds. absent: Tenderness - Extremities Exam Extremities Exam: Full ROM, Normal Capillary Refill, Normal Inspection. absent : Joint Swelling, Pedal Edema - Back Exam Back Exam: NORMAL INSPECTION - Neurological Exam Neurological Exam: Alert, Awake, CN II-XII Intact, Oriented x3 - Psychiatric Exam Psychiatric exam: Normal Affect, Normal Mood - Skin Skin Exam: Dry, Intact, Normal Color, Warm Assessment and Plan (1) A-fib Status: Chronic (2) Acute on chronic diastolic (congestive) heart failure Status: Chronic (3) Acute respiratory failure with hypoxia Status: Chronic (4) Altered mental status Status: Acute (5) HTN (hypertension) Status: Chronic (6) Seizure disorder Status: Chronic (7) CANDELARIA (acute kidney injury) Status: Resolved (8) Encephalopathy Status: Chronic (9) Hypothermia Status: Acute (10) Pleural effusion, bilateral Status: Resolved (11) Supratherapeutic international normalized ratio (INR) Status: Acute (12) Acute decompensated heart failure Status: Acute (13) Atrial fibrillation with RVR Status: Acute
[2018-02-25] MEDS: Pantoprazole 40 mg EC Tab PO SCH (09:22)
[2018-02-25] MEDS: Cholecalciferol 1,000 INTLU TAB PO SCH (09:23)
[2018-02-25] MEDS: AVODART 0.5 MG PO SCH (09:23)
[2018-02-25 13:03] LABS: HEMOGLOBIN 10.2 g/dL (12.0-18.0); MEAN CELL VOLUME 85.2 fl (80.0-94.0); MEAN CORPUSCULAR HEMOGLOBIN 28.6 pg (27.0-31.0); MEAN CORPUSCULAR HGB CONC 33.6 g/dL (33.0-37.0); RBC 3.57 Mil/uL (4.40-5.90); RED CELL DISTRIBUTION WIDTH 17.3 % (11.5-14.5); WHITE BLOOD COUNT 7.8 K/uL (4.8-10.8)
[2018-02-25 13:10] LABS: INR 1.5 (0.9-1.2); PARTIAL THROMBOPLASTIN TIME 33.9 Seconds (25.6-37.1); PROTHROMBIN TIME 16.7 Seconds (9.8-13.1)
[2018-02-25 13:33] LABS: ALB/GLOB RATIO 0.8 (1.0-2.1); ALBUMIN 3.8 g/dL (3.5-5.0); CALCIUM 9.7 mg/dL (8.4-10.2)
--- NOTE | 2018-02-25 16:39 | CP.PCM.PN ---
Subjective - Date & Time of Evaluation Date of Evaluation: 02/25/18 Time of Evaluation: 10:00 - Subjective Subjective: F/U Respiratory failure. no AD, N/C , smiling , answer questions , Patient always asking when He is going home Objective - Vital Signs/Intake and Output Vital Signs (last 24 hours): Temp Pulse Resp BP Pulse Ox 97.4 F L 98 H 18 126/64 98 02/25/18 16:26 02/25/18 16:26 02/25/18 16:26 02/25/18 16:26 02/25/18 16:26 - Medications Medications: Current Medications Apixaban (Eliquis) 2.5 mg PO BID [facility] PRN Reason: Protocol Last Admin: 02/25/18 09:22 Dose: 2.5 mg Cholecalciferol (Vitamin D) 5,000 intlu PO DAILY [facility] Last Admin: 02/25/18 09:23 Dose: 5,000 intlu Digoxin (Digoxin) 0.125 mg PO QOTHERDAY [facility] Last Admin: 02/24/18 08:58 Dose: 0.125 mg Diltiazem HCl (Cardizem) 60 mg PO Q6 [facility] Last Admin: 02/25/18 09:22 Dose: 60 mg Furosemide (Lasix) 40 mg IV DAILY [facility] Last Admin: 02/25/18 09:21 Dose: 40 mg Home Med (Patient's Own Medication) 1 unit PO DAILY [facility] Last Admin: 02/25/18 09:23 Dose: 1 unit Lamotrigine (Lamictal) 100 mg PO Q12 [facility] Last Admin: 02/25/18 09:22 Dose: 100 mg Metoprolol Tartrate (Lopressor) 25 mg PO Q12 [facility] Last Admin: 02/25/18 09:22 Dose: 25 mg Pantoprazole Sodium (Protonix Ec Tab) 40 mg PO DAILY [facility] Last Admin: 02/25/18 09:22 Dose: 40 mg - Labs Labs: 02/25/18 12:56 02/25/18 12:56 PT 16.7 Seconds (9.8-13.1) H 02/25/18 12:56 INR 1.5 (0.9-1.2) H 02/25/18 12:56 APTT 33.9 Seconds (25.6-37.1) 02/25/18 12:56 - Constitutional Appears: Chronically Ill - Head Exam Head Exam: NORMAL INSPECTION - Eye Exam Eye Exam: PERRL - ENT Exam ENT Exam: Normal Exam - Neck Exam Neck Exam: Normal Inspection - Respiratory Exam Respiratory Exam: Decreased Breath Sounds (at bases) - Cardiovascular Exam Cardiovascular Exam: REGULAR RHYTHM Additional comments: PPM - GI/Abdominal Exam GI & Abdominal Exam: Soft, Normal Bowel Sounds - Extremities Exam Extremities Exam: Normal Inspection - Back Exam Additional comments: Upper back and sacral wound healed - Neurological Exam Neurological Exam: Awake Additional comments: No focal motor /sensory deficit, generalized weakness. - Psychiatric Exam Psychiatric exam: Anxious - Skin Skin Exam: Warm Assessment and Plan (1) Acute respiratory failure with hypoxia Status: Chronic (2) Encephalopathy Status: Chronic (3) Diastolic CHF, acute on chronic Status: Chronic (4) Hx of seizure disorder Status: Chronic (5) A-fib Status: Chronic (6) CANDELARIA (acute kidney injury) Status: Resolved (7) Anemia Status: Resolved (8) Aortic valve vegetation Status: Resolved (9) SUSAN (obstructive sleep apnea) Status: Acute (10) Pulmonary hypertension Status: Chronic (11) Clostridium difficile infection Status: Resolved (12) Hypertension Status: Chronic (13) Abdominal pain Status: Resolved (14) UTI (urinary tract infection) Status: Resolved - Assessment and Plan (Free Text) Plan: to use his own CPAP , now working tonight ,continue rest of medications
[2018-02-26 04:51] LABS: ABG ALLEN TEST YES; ARTERIAL BLOOD GAS HCO3 35.8 mmol/L (21-28); ARTERIAL BLOOD GAS HEMOGLOBIN 11.2 g/dL (11.7-17.4); ARTERIAL BLOOD GAS O2 CAPACITY 15.2 mL/dL (16-24); ARTERIAL BLOOD GAS O2 CONTENT 14.7 ML/dL (15-23); ARTERIAL BLOOD GAS O2 SAT 96.4 % (95-98); ARTERIAL BLOOD GAS PCO2 53 mm/Hg (35-45); ARTERIAL BLOOD GAS PH 7.48 (7.35-7.45); ARTERIAL BLOOD GAS PO2 68 mm/Hg (80-100); ARTERIAL BLOOD GAS TCO2 41.1 mmol/L (22-28)
[2018-02-26 07:58] VITALS: RESP 17; TEMP 97.4
[2018-02-26] MEDS: Digoxin 125 mcg (0.125 mg) Tab PO SCH (09:41)
[2018-02-26] MEDS: Pantoprazole 40 mg EC Tab PO SCH (09:42)
[2018-02-26] MEDS: AVODART 0.5 MG PO SCH (09:43)
[2018-02-26] MEDS: Cholecalciferol 1,000 INTLU TAB PO SCH (11:01)
[2018-02-26 12:13] VITALS: BP 132/62; PULSE 83; O2SAT 100
--- NOTE | 2018-02-26 14:00 | CP.PCM.DIS ---
Provider - Provider Date of Admission: 09/23/17 11:47 Attending physician: Abhi Escamilla MD Consults: 09/24/17 03:51 Wound Care [Nursing Referral for Wound Care] Routine Comment: Physician Instructions: Reason For Exam: poss fungal growth in groin and in skin folds 10/05/17 19:19 Wound Care [Nursing Referral for Wound Care] Routine Comment: Physician Instructions: Reason For Exam: Sacral open wound 10/14/17 08:20 Wound Care [Nursing Referral for Wound Care] Routine Comment: abrasion with swellin on nose bridge Physician Instructions: Reason For Exam: reeval of sacrum wound Diagnosis - Discharge Diagnosis (1) Acute respiratory failure with hypoxia Status: Chronic Priority: High (2) Encephalopathy Status: Chronic (3) Diastolic CHF, acute on chronic Status: Chronic (4) Hx of seizure disorder Status: Chronic Priority: High (5) A-fib Status: Chronic Priority: High (6) CANDELARIA (acute kidney injury) Status: Resolved (7) Anemia Status: Resolved (8) Aortic valve vegetation Status: Resolved (9) SUSAN (obstructive sleep apnea) Status: Acute (10) Pulmonary hypertension Status: Chronic (11) Clostridium difficile infection Status: Resolved (12) Hypertension Status: Chronic (13) Abdominal pain Status: Resolved (14) UTI (urinary tract infection) Status: Resolved Hospital Course - Lab Results Lab Results: Micro Results 01/31/18 19:50 Urine,Catheterized Urine Culture - Final No Growth (<1,000 CFU/ML) 01/29/18 12:04 Urine,Wang Urine Culture - Final Pseudomonas Aeruginosa 01/26/18 00:49 Blood Blood Culture - Final NO GROWTH AFTER 5 DAYS 01/26/18 00:49 Blood Gram Stain - Final TEST NOT PERFORMED 01/26/18 00:11 Blood Blood Culture - Final NO GROWTH AFTER 5 DAYS 01/24/18 01:20 Urine Urine Culture - Final Pseudomonas Aeruginosa 01/18/18 17:32 Stool Stool Culture - Final NO SALMONELLA, SHIGELLA OR CAMPYLOBACTER ISOLATED. 01/18/18 17:33 Stool Ova and Parasite Concentrate Exam - Final 01/04/18 11:25 Urine,Catheterized Urine Culture - Final Proteus Mirabilis 01/03/18 12:00 Stool Stool Culture - Final NO SALMONELLA, SHIGELLA OR CAMPYLOBACTER ISOLATED. 01/04/18 15:53 Naris MRSA Culture (Admit) - Final MRSA NOT DETECTED 12/31/17 09:13 Stool Stool Culture - Final NO SALMONELLA, SHIGELLA OR CAMPYLOBACTER ISOLATED. 12/30/17 13:48 Stool Ova and Parasite Concentrate Exam - Final 12/27/17 06:00 Stool Ova and Parasite Concentrate Exam - Final 12/26/17 14:35 Stool Ova and Parasite Concentrate Exam - Final 12/27/17 06:00 Stool Stool Culture - Final NO SALMONELLA, SHIGELLA OR CAMPYLOBACTER ISOLATED. 12/26/17 18:47 Stool Stool Culture - Final NO SALMONELLA, SHIGELLA OR CAMPYLOBACTER ISOLATED. 12/15/17 06:11 Trachasp Gram Stain - Final 12/15/17 06:11 Trachasp Sputum Culture - Final NORMAL ORAL OTONIEL 12/15/17 08:20 Naris MRSA Culture (Admit) - Final MRSA NOT DETECTED 12/10/17 10:55 Blood Blood Culture - Final NO GROWTH AFTER 5 DAYS 12/10/17 10:55 Blood Gram Stain - Final TEST NOT PERFORMED 12/10/17 13:10 Sputum Gram Stain - Final 12/10/17 13:10 Sputum Sputum Culture - Final Klebsiella Pneumoniae Ssp Pneu 11/13/17 04:20 Naris MRSA Culture (Admit) - Final MRSA NOT DETECTED 10/31/17 18:38 Sputum Gram Stain - Final 10/31/17 18:38 Sputum Sputum Culture - Final Pseudomonas Aeruginosa 10/25/17 08:30 Sputum Gram Stain - Final 10/25/17 08:30 Sputum Sputum Culture - Final Pseudomonas Aeruginosa 10/14/17 13:36 Blood-Thru Central Line Blood Culture - Final NO GROWTH AFTER 5 DAYS 10/14/17 13:36 Blood-Thru Central Line Gram Stain - Final TEST NOT PERFORMED 10/14/17 12:26 Blood-Venous Blood Culture - Final NO GROWTH AFTER 5 DAYS 10/14/17 12:26 Blood-Venous Gram Stain - Final TEST NOT PERFORMED 10/14/17 13:36 Urine,Catheterized Urine Culture - Final No Growth (<1,000 CFU/ML) 10/13/17 18:00 Urine Urine Culture - Final No Growth (<1,000 CFU/ML) 09/24/17 18:00 Body Fluid - Chest Gram Stain - Final 09/24/17 18:00 Body Fluid - Chest Body Fluid Culture - Final No growth. 09/26/17 14:00 Trachasp Gram Stain - Final 09/26/17 14:00 Trachasp Sputum Culture - Final NORMAL ORAL OTONIEL 09/23/17 08:15 Blood Blood Culture - Final NO GROWTH AFTER 5 DAYS 09/23/17 08:15 Blood Gram Stain - Final TEST NOT PERFORMED 09/23/17 08:00 Blood Blood Culture - Final NO GROWTH AFTER 5 DAYS 09/23/17 08:00 Blood Gram Stain - Final TEST NOT PERFORMED 09/23/17 09:55 Naris MRSA Culture (Admit) - Final MRSA NOT DETECTED 09/23/17 12:05 Urine,Catheterized Urine Culture - Final No Growth (<1,000 CFU/ML) Most Recent Lab Values WBC 7.8 K/uL (4.8-10.8) 02/25/18 12:56 RBC 3.57 Mil/uL (4.40-5.90) L 02/25/18 12:56 Hgb 10.2 g/dL (12.0-18.0) L 02/25/18 12:56 Hct 30.4 % (35.0-51.0) L 02/25/18 12:56 MCV 85.2 fl (80.0-94.0) 02/25/18 12:56 MCH 28.6 pg (27.0-31.0) 02/25/18 12:56 MCHC 33.6 g/dL (33.0-37.0) 02/25/18 12:56 RDW 17.3 % (11.5-14.5) H 02/25/18 12:56 Plt Count 480 K/uL (130-400) H D 02/25/18 12:56 MPV 7.1 fl (7.2-11.7) L 01/20/18 05:45 Neut % (Auto) 67.9 % (50.0-75.0) 01/20/18 05:45 Lymph % (Auto) 16.4 % (20.0-40.0) L 01/20/18 05:45 Meagher % (Auto) 11.2 % (0.0-10.0) H 01/20/18 05:45 Eos % (Auto) 3.6 % (0.0-4.0) 01/20/18 05:45 Baso % (Auto) 0.9 % (0.0-2.0) 01/20/18 05:45 Neut # (Auto) 4.4 K/uL (1.8-7.0) 01/20/18 05:45 Lymph # (Auto) 1.1 K/uL (1.0-4.3) 01/20/18 05:45 Meagher # (Auto) 0.7 K/uL (0.0-0.8) 01/20/18 05:45 Eos # (Auto) 0.2 K/uL (0.0-0.7) 01/20/18 05:45 Baso # (Auto) 0.1 K/uL (0.0-0.2) 01/20/18 05:45 Eosinophils % (Manual) 3 % (0-7) 11/04/17 04:30 Neutrophils % (Manual) 90 % (42-75) H 12/15/17 05:18 Basophils % (Manual) 1 % (0-2) 11/04/17 04:30 Band Neutrophils % 2 % (0-2) 12/15/17 05:18 Lymphocytes % (Manual) 3 % (20-50) L 12/15/17 05:18 Monocytes % (Manual) 4 % (0-10) 12/15/17 05:18 Metamyelocytes % 1 % (0-0) H 12/15/17 05:18 Toxic Granulation Present 12/15/17 05:18 Large Platelets Present 10/14/17 04:30 Platelet Estimate Normal (NORMAL) 12/15/17 05:18 Poikilocytosis (manual Slight 12/09/17 07:30 Tear Drop Cells Slight 11/11/17 05:00 Hypochromasia (manual) Slight 12/15/17 05:18 Anisocytosis (manual) Slight 12/15/17 05:18 Ovalocytes Slight 12/15/17 05:18 Schistocytes Slight 12/15/17 05:18 ESR > 120 mm/hr (0-20) H 10/16/17 13:18 Retic Count 5.3 % (0.5-1.5) H 10/23/17 10:30 PT 16.7 Seconds (9.8-13.1) H 02/25/18 12:56 INR 1.5 (0.9-1.2) H 02/25/18 12:56 APTT 33.9 Seconds (25.6-37.1) 02/25/18 12:56 Puncture Site Rr 02/20/18 05:00 pCO2 53 mm/Hg (35-45) H 02/26/18 04:44 pO2 68 mm/Hg (80-100) L 02/26/18 04:44 HCO3 35.8 mmol/L (21-28) H 02/26/18 04:44 ABG pH 7.48 (7.35-7.45) H 02/26/18 04:44 ABG Total CO2 41.1 mmol/L (22-28) H 02/26/18 04:44 ABG O2 Saturation 96.4 % (95-98) 02/26/18 04:44 ABG O2 Content 14.7 ML/dL (15-23) L 02/26/18 04:44 ABG Base Excess 14.0 mmol/L (-2.0-3.0) H 02/26/18 04:44 ABG Hemoglobin 11.2 g/dL (11.7-17.4) L 02/26/18 04:44 ABG Carboxyhemoglobin 2.2 % (0.5-1.5) H 02/26/18 04:44 POC ABG HHb (Measured) 3.5 % (0.0-5.0) 02/26/18 04:44 ABG Methemoglobin 1.3 % (0.0-3.0) 02/26/18 04:44 ABG O2 Capacity 15.2 mL/dL (16-24) L 02/26/18 04:44 Broderick Test Yes 02/26/18 04:44 ABG Potassium 4.2 mmol/L (3.6-5.2) 12/17/17 12:09 VBG pH 7.34 (7.32-7.43) 09/23/17 08:03 VBG pCO2 58 mmHg (40-60) 09/23/17 08:03 VBG HCO3 27.2 mmol/L 09/23/17 08:03 VBG Total CO2 33.1 mmol/L (22-28) H 09/23/17 08:03 VBG O2 Sat (Calc) 71.6 % (40-65) H 09/23/17 08:03 VBG Base Excess 3.9 mmol/L (0.0-2.0) H 09/23/17 08:03 VBG Potassium 5.5 mmol/L (3.6-5.2) H 09/23/17 08:03 A-a O2 Difference 15.0 mm/Hg 02/26/18 04:44 Hgb O2 Saturation 93.0 % (95.0-98.0) L 02/26/18 04:44 Sodium 144.0 mmol/L (132-148) 12/17/17 12:09 Chloride 111.0 mmol/L (98-107) H 12/17/17 12:09 Glucose 106 mg/dL (75-110) 12/17/17 12:09 Lactate 1.0 mmol/L (0.7-2.1) 12/17/17 12:09 Liter Flow 40 02/06/18 10:37 Vent Mode Own cpap 02/26/18 04:44 Mechanical Rate 14 01/23/18 04:31 FiO2 21.0 % 02/26/18 04:44 Tidal Volume 400 12/17/17 05:17 PEEP 5 12/17/17 12:09 Pressure Support 10 12/17/17 12:09 CPAP 6 02/21/18 04:00 Inspiratory BiPAP 10 01/23/18 04:31 Expiratory BiPAP 6 02/18/18 04:12 Blood Gas Comments 3l/m o2 blend in 02/21/18 04:00 Crit Value Called To Alvin stinson 01/08/18 12:12 Crit Value Called By 15 01/08/18 12:12 Crit Value Read Back N 02/03/18 16:00 Blood Gas Notified Time 1305 01/08/18 12:12 Sodium 141 mmol/l (132-148) 02/25/18 12:56 Potassium 4.4 MMOL/L (3.6-5.0) 02/25/18 12:56 Chloride 91 mmol/L (98-107) L 02/25/18 12:56 Carbon Dioxide 37 mmol/L (22-30) H 02/25/18 12:56 Anion Gap 17 (10-20) 02/25/18 12:56 BUN 38 mg/dl (9-20) H 02/25/18 12:56 Creatinine 1.4 mg/dl (0.8-1.5) 02/25/18 12:56 Est GFR ( Amer) 59 02/25/18 12:56 Est GFR (Non-Af Amer) 49 02/25/18 12:56 POC Glucose (mg/dL) 126 mg/dL (65-110) H 02/03/18 21:24 Random Glucose 149 mg/dL (75-110) H 02/25/18 12:56 Lactic Acid 1.4 MMOL/L (0.7-2.1) 12/09/17 07:30 Uric Acid 5.8 mg/Dl (3.5-8.5) 11/19/17 06:00 Calcium 9.7 mg/dL (8.4-10.2) 02/25/18 12:56 Phosphorus 2.8 mg/dl (2.5-4.5) 11/05/17 05:10 Magnesium 2.1 MG/DL (1.6-2.3) 11/05/17 05:10 Iron 37 ug/dL (49-181) L 10/23/17 10:30 TIBC 214 ug/dL (250-450) L 10/23/17 10:30 % Saturation 17 % (20-55) L 10/23/17 10:30 Ferritin 44.5 ng/Ml (17.9-464) 10/23/17 10:30 Total Bilirubin 0.6 mg/dl (0.2-1.3) 02/25/18 12:56 Direct Bilirubin 0.6 mg/ml (0.0-0.4) H 12/26/17 18:47 AST 35 U/L (17-59) 02/25/18 12:56 ALT 40 U/L (21-72) 02/25/18 12:56 Alkaline Phosphatase 129 U/L (38-126) H 02/25/18 12:56 Ammonia 11 umo/L (16-60) L D 10/16/17 09:51 Troponin I 0.0280 ng/mL (0.00-0.120) 02/09/18 06:25 NT-Pro-B Natriuret Pep 3850 pg/ml (0-900) H 12/23/17 10:20 Total Protein 8.7 G/DL (6.3-8.2) H 02/25/18 12:56 Albumin 3.8 g/dL (3.5-5.0) 04/17/18 12:56 Globulin 4.9 gm/dL (2.2-3.9) H 02/25/18 12:56 Albumin/Globulin Ratio 0.8 (1.0-2.1) L 02/25/18 12:56 Prostate Specific Ag 3.01 ng/ML (0.00-4.0) 10/03/17 04:20 Vitamin B6 TNP 10/16/17 13:18 Vitamin B12 552 pg/mL (239-931) 10/23/17 10:30 25-OH Vitamin D Total 25.5 NG/ML (30.0-100.0) L 09/25/17 04:45 Folate > 20.0 ng/mL 09/25/17 04:45 RBC Folate 1921 ng/mL RBC (>280) 10/23/17 10:30 Procalcitonin 0.10 NG/ML (0.19-0.49) L 12/08/17 15:00 Free T4 1.19 ng/dL (0.78-2.19) 10/16/17 13:18 Thyroxine (T4) 8.52 ug/dl (5.5-11.0) 10/08/17 19:00 Total T3 0.782 nmol/L (1.49-2.60) L 10/08/17 19:00 TSH 3rd Generation 5.00 mIU/ML (0.46-4.68) H 10/16/17 13:18 Plasma Cortisol PM 11.2 ug/dL (1.7-14.1) 11/11/17 17:39 Venous Blood Potassium 5.5 mmol/L (3.6-5.2) H 09/23/17 08:03 Arterial Blood Potassium 4.2 mmol/L (3.6-5.2) 12/17/17 12:09 Urine Color Red (YELLOW) 01/24/18 01:20 Urine Clarity Turbid (Clear) 01/24/18 01:20 Urine pH 6.0 (5.0-8.0) 01/24/18 01:20 Ur Specific [place] 1.015 (1.003-1.030) 01/24/18 01:20 Urine Protein 100 mg/dL (NEGATIVE) 01/24/18 01:20 Urine Glucose (UA) Neg mg/dL (Normal) 01/24/18 01:20 Urine Ketones Negative mg/dL (NEGATIVE) 01/24/18 01:20 Urine Blood Moderate (NEGATIVE) 01/24/18 01:20 Urine Nitrate Negative (NEGATIVE) 01/24/18 01:20 Urine Bilirubin Negative (NEGATIVE) 01/24/18 01:20 Urine Urobilinogen 0.2-1.0 mg/dL (0.2-1.0) 01/24/18 01:20 Ur Leukocyte Esterase Mod Cristal/uL (Negative) 01/24/18 01:20 Urine RBC (Auto) 2595 /hpf (0-3) H 01/24/18 01:20 Ur Squamous Epith Cells < 1 /hpf (0-5) 10/13/17 18:00 Urine WBC Clumps (Auto) Few /hpf (NONE) H 01/04/18 09:59 Urine Microscopic WBC 3024 /hpf (0-5) H 01/24/18 01:20 Amorphous Sediment Rare /ul (<OCC) H 10/02/17 13:00 Urine Bacteria Rare (<OCC) 10/02/17 13:00 Ur Random Creatinine 75.2 mg/dL 10/02/17 11:47 U Random Total Protein 43 mg/L 10/02/17 13:36 Ur Random Sodium 21 mmol/L 10/02/17 11:47 Urine Creatinine 71 mg/dL (20-370) 10/03/17 06:20 Urine Microalbumin 6.9 mg/dL 10/03/17 06:20 Microalb/Creat Ratio 96 (<30) H 10/03/17 06:20 Fluid Source Pleural 09/24/17 18:00 Fluid Appearance Bloody (CLEAR) 09/24/17 18:00 Fluid WBC 694.0 /mm3 (0.0-300.0) H 09/24/17 18:00 Fluid RBC 07297.0 /mm3 (0.0-0.0) H 09/24/17 18:00 Fluid Tot Cell Count 100 (0-0) H 09/24/17 18:00 Fluid Neutrophils 23.0 % (0-0) H 09/24/17 18:00 Fluid Lymphocytes 60.0 % (0-0) H 09/24/17 18:00 Fld Monocyte/Macrophag 17 % (0-0) H 09/24/17 18:00 Fluid Glucose 80 mg/dL (NONE ESTABLISHED) 09/24/17 18:00 Fluid Total Protein 3.1 g/dL (NONE ESTABLISHED) 09/24/17 18:00 Fluid LDH 240 IU (NONE ESTABLISHED) 09/24/17 18:00 Fluid Amylase < 30 mg/dL (NONE ESTABLISHED) 09/24/17 18:00 Fluid Triglycerides 11 mg/dL (NONE ESTABLISHED) 09/24/17 18:00 Fluid Comment Bloody 09/24/17 18:00 Stool Occult Blood Negative (NEGATIVE) 01/01/18 00:30 Stool Leukocytes, Qual Positive (NEGATIVE) H 01/20/18 11:28 Random Vancomycin 9.6 ug/mL 10/31/17 04:40 Vancomycin Trough 6.9 ug/mL (5.0-10.0) 12/14/17 07:10 Digoxin 0.7 ng/mL (0.8-2.0) L 02/25/18 12:56 Lamotrigine 0.6 mcg/mL (4.0-18.0) L 10/16/17 13:57 Whole Blood Arsenic 3 mcg/L (<23) 10/16/17 13:18 Whole Blood Lead 2 mcg/dL (<5) 10/16/17 13:18 Serum Immunofixation Detected (Not Detected) H 12/02/17 04:20 Acetylchol Rcpt Bind Ab <0.30 nmol/L (<=0.30) 10/06/17 16:15 RPR Nonreactive (NONREACTIVE) 10/16/17 13:18 Lyme Disease Screen <0.90 index 10/16/17 14:00 C. difficile Tox B Gene Detected (Not Detected) H 10/07/17 19:00 C. difficile Ag & Toxin Negative (NEGATIVE) 01/03/18 17:30 HSV I IgG Ab <0.90 index 10/16/17 14:00 HSV II IgG <0.90 index 10/16/17 14:00 HIV 1&2 Antibody Screen Negative (NEGATIVE) 10/07/17 05:10 Influenza Typ A,B (EIA) Negative for flu a/b (NEGATIVE) 12/07/17 16:11 Blood Type O POSITIVE 10/23/17 06:31 Antibody Screen Negative 10/23/17 06:31 Crossmatch See Detail 10/23/17 06:31 BBK History Checked Patient has bt 10/23/17 06:31 Discharge Exam - Head Exam Head Exam: NORMAL INSPECTION Discharge Plan - Discharge Medications Prescriptions: Dutasteride [Avodart] 0.5 mg PO DAILY #30 capsule [id number] CD [Cardizem CD] 240 mg PO DAILY #30 c24 Digoxin 125 mcg PO QOTHERDAY #30 tablet Furosemide [Lasix] 40 mg PO DAILY #30 tab - Follow Up Plan Condition: GUARDED Disposition: Still A Patient Instructions: Heart Failure, Adult (DC), Respiratory Distress Syndrome, Adult ( DC), Carbidopa/Levodopa (By mouth), Pneumonia (DC) Additional Instructions: will follow up patient at home in 1 week [facility] [phone] for c-pap Referrals: Abhi Escamilla MD [Family Provider] -
== END 2018-02-26 15:45 | disposition home or self-care (01) | DRG 870 ==
LOC: H.ER 07:26 → H.ERHOLD 11:47 → H.ICU/CCU 14:45 → H.TEL 11-13 17:42 → H.ICU/CCU 12-15 00:51 → H.TEL 01-04 12:57
PROVIDERS: ADMIT Internal Medicine Pulmonary Disease; ATTEND Internal Medicine Pulmonary Disease
PROC: 30233K1 Transfusion of Nonautologous Frozen Plasma into Peripheral Vein, Percutaneous Approach (ICD-10-PCS; 2017-09-23)
PROC: 0W9B3ZZ Drainage of Left Pleural Cavity, Percutaneous Approach (ICD-10-PCS; 2017-09-24)
PROC: 0W993ZZ Drainage of Right Pleural Cavity, Percutaneous Approach (ICD-10-PCS; 2017-09-25)
PROC: 02HV33Z Insertion of Infusion Device into Superior Vena Cava, Percutaneous Approach (ICD-10-PCS; 2017-09-27)
PROC: B518ZZA Fluoroscopy of Superior Vena Cava, Guidance (ICD-10-PCS; 2017-09-27)
PROC: 3E04329 Introduction of Other Anti-infective into Central Vein, Percutaneous Approach (ICD-10-PCS; 2017-09-27)
PROC: 5A1955Z Respiratory Ventilation, Greater than 96 Consecutive Hours (ICD-10-PCS; 2017-09-28)
PROC: 0CJS8ZZ Inspection of Larynx, Via Natural or Artificial Opening Endoscopic (ICD-10-PCS; 2017-09-28)
PROC: 0BH17EZ Insertion of Endotracheal Airway into Trachea, Via Natural or Artificial Opening (ICD-10-PCS; 2017-09-28)
PROC: 0BJ08ZZ Inspection of Tracheobronchial Tree, Via Natural or Artificial Opening Endoscopic (ICD-10-PCS; 2017-09-29)
PROC: 0W9930Z Drainage of Right Pleural Cavity with Drainage Device, Percutaneous Approach (ICD-10-PCS; 2017-10-01)
PROC: 0BH17EZ Insertion of Endotracheal Airway into Trachea, Via Natural or Artificial Opening (ICD-10-PCS; 2017-10-02)
PROC: 0W9B30Z Drainage of Left Pleural Cavity with Drainage Device, Percutaneous Approach (ICD-10-PCS; principal; 2017-10-08)
PROC: 0W9B3ZX Drainage of Left Pleural Cavity, Percutaneous Approach, Diagnostic (ICD-10-PCS; 2017-10-09)
PROC: B246ZZ4 Ultrasonography of Right and Left Heart, Transesophageal (ICD-10-PCS; 2017-10-16)
PROC: 30233N1 Transfusion of Nonautologous Red Blood Cells into Peripheral Vein, Percutaneous Approach (ICD-10-PCS; 2017-10-23)
PROC: 0W9B30Z Drainage of Left Pleural Cavity with Drainage Device, Percutaneous Approach (ICD-10-PCS; 2017-10-29)
PROC: 5A19054 Respiratory Ventilation, Single, Nonmechanical (ICD-10-PCS; 2017-12-17)
PROC: 5A09557 Assistance with Respiratory Ventilation, Greater than 96 Consecutive Hours, Continuous Positive Airway Pressure (ICD-10-PCS; 2018-01-23)
DX: A41.9 Sepsis, unspecified organism (principal); G92 Toxic encephalopathy; J69.0 Pneumonitis due to inhalation of food and vomit; J96.21 Acute and chronic respiratory failure with hypoxia; I33.0 Acute and subacute infective endocarditis; J15.1 Pneumonia due to Pseudomonas; N17.0 Acute kidney failure with tubular necrosis; I50.33 Acute on chronic diastolic (congestive) heart failure; J96.22 Acute and chronic respiratory failure with hypercapnia; A04.72 Enterocolitis due to Clostridium difficile, not specified as recurrent; E87.4 Mixed disorder of acid-base balance; Z68.1 Body mass index [BMI] 19.9 or less, adult; J98.11 Atelectasis; I13.0 Hypertensive heart and chronic kidney disease with heart failure and stage 1 through stage 4 chronic kidney disease, or unspecified chronic kidney disease; E46 Unspecified protein-calorie malnutrition; E87.0 Hyperosmolality and hypernatremia; D68.8 Other specified coagulation defects; N39.0 Urinary tract infection, site not specified; I42.9 Cardiomyopathy, unspecified; L89.152 Pressure ulcer of sacral region, stage 2; I27.29 Other secondary pulmonary hypertension; N18.3 Chronic kidney disease, stage 3 (moderate); R65.20 Severe sepsis without septic shock; R62.7 Adult failure to thrive; I48.2 Chronic atrial fibrillation; G47.33 Obstructive sleep apnea (adult) (pediatric); B96.5 Pseudomonas (aeruginosa) (mallei) (pseudomallei) as the cause of diseases classified elsewhere; D63.8 Anemia in other chronic diseases classified elsewhere; E86.0 Dehydration; E87.5 Hyperkalemia; E55.9 Vitamin D deficiency, unspecified; D53.8 Other specified nutritional anemias; F03.90 Unspecified dementia, unspecified severity, without behavioral disturbance, psychotic disturbance, mood disturbance, and anxiety; B96.4 Proteus (mirabilis) (morganii) as the cause of diseases classified elsewhere; N50.89 Other specified disorders of the male genital organs; N40.0 Benign prostatic hyperplasia without lower urinary tract symptoms; G40.909 Epilepsy, unspecified, not intractable, without status epilepticus; R31.9 Hematuria, unspecified; I95.9 Hypotension, unspecified; Z74.01 Bed confinement status; Z86.73 Personal history of transient ischemic attack (TIA), and cerebral infarction without residual deficits; Z95.0 Presence of cardiac pacemaker; Z79.01 Long term (current) use of anticoagulants; Z91.012 Allergy to eggs; Z91.013 Allergy to seafood